=== PATIENT | male | born 1985 | race Caucasian/White ===

== ENCOUNTER 2020-03-18 09:35 | Inpatient (IN) | payer MEDICARE, OTHER ==
[~2020-03-18] VITALS: Ht 182.9 cm; Wt 73.0 kg
[2020-03-18] MEDS ORDERED: SODIUM CHLORIDE 0.9% 500ML 500 ML IV ONE (09:45)
[2020-03-18] MEDS ORDERED: MEROPENEM 500MG 500 MG in SODIUM CHLORIDE 0.9% 50ML 50 ML IV ONE (09:45)
--- OUTSIDE RECORDS SUMMARY | 2020-03-18 10:06 | XMS REPORT | Clinical Summary ---
Author Author [facility] ict Organization [facility] ict Address Unknown Phone Unavailable Care Team Providers Care Accounts Payable Analyst Name Role Phone PCP Unavailable Allergies Comments Active Allergy Reactions Severity Noted Date Latex Rash High 08/25/2016 Naproxen Hives High 08/25/2016 Tramadol Hives High 08/25/2016 Medications End Date Status Medication Sig Dispensed Refills Start Date Active acetaminophen-codeine Take 1 tablet 30 tablet 1 (TYLENOL/CODEINE #3) by mouth 7 300-30 mg per every 6 hours tabletIndications: as needed for Chronic midline low back Pain. pain, with sciatica presence unspecified Active Problems Problem Noted Date Chronic back pain 08/28/2016 Left flank pain 08/25/2016 Acute renal failure 08/25/2016 Hyperkalemia 08/25/2016 Chronic indwelling [place] catheter 08/25/2016 Paraplegia, complete 08/25/2016 Decubitus ulcer of buttock, stage 4 08/25/2016 Left upper quadrant pain Nausea and vomiting Renal failure (ARF), acute on chronic Urinary tract infection associated with indwelling urethral catheter Metabolic acidosis Family History Medical History Relation Name Comments Alcohol/Drug Father Heart attack Father Cancer Mother possible breast, sh e when pt was 5yr old Relation Name Status Comments Father Mother Social History Date Tobacco Use Types Packs/Day Years Used Former Smoker Drinks/Week oz/Week Comments Alcohol Use 0 Standard drinks or equivalent 0.0 quit No Sex Assigned at Date Recorded Not on file Industry Job Start Date Occupation Not on file Not on file Not on file Travel End Travel History Travel Start No recent travel history available. Last Filed Vital Signs Not on file Plan of Treatment Health Maintenance Due Date Last Done Comments IMM Influenza Seasonal 05/04/2020 Oct to October (>/= 19 yrs) Results Not on fileafter 03/18/2019 Insurance Type Payer Benefit Subscriber ID Effective Phone Address Plan / Dates Group MEDICARE MEDICARE xxxxxxxxxx 2008-P [phone] [id number] [place] [address] [place] [id number] xxxxxxxxx 2016- [phone] Present 2004 MEDICARE [place], [place] BENEF[place]IAR [id number] Y Advance Directives Patient [place] Operator Explanation Type Date Recorded MEDICAL POWER OF MOTION PICTURE DIRECTOR Power of Dye Reel Operator 09/01/2016 1:13 AM Date Inactivated Comments Code Status Date Activated 08/28/2016 6:03 PM Full Code 08/25/2016 11:08 AM
--- OUTSIDE RECORDS SUMMARY | 2020-03-18 10:08 | XMS REPORT | Clinical Summary ---
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 ACID LEVEL, SEPSIS Timed 12/21/2019 - NOW AND REPEAT 2X EVERY 2:11 AM CDT 3 HOURS POC GLUCOSE Routine 12/20/2019 10:22 PM CDT ESTIMATED GFR STAT 12/20/2019 10:20 PM CDT BASIC METABOLIC PANEL STAT 12/20/2019 10:20 PM CDT LACTIC ACID LEVEL, SEPSIS Timed 12/20/2019 - NOW AND REPEAT 2X EVERY 9:37 PM CDT 3 HOURS URINE CULTURE Routine 12/20/2019 8:36 PM CDT URINALYSIS SCREEN AND Routine 12/20/2019 MICROSCOPY, WITH REFLEX 8:17 PM CDT TO CULTURE ECG 12-LEAD STAT 12/20/2019 8:07 PM CDT POC GLUCOSE Routine 12/20/2019 8:02 PM CDT PREPARE RBC STAT 12/20/2019 7:48 PM CDT PREPARE RBC STAT 12/20/2019 7:48 PM CDT TYPE AND SCREEN Routine 12/20/2019 7:48 PM CDT PARTIAL THROMBOPLASTIN STAT 12/20/2019 TIME (PTT) 7:48 PM CDT PROTHROMBIN TIME WITH INR STAT 12/20/2019 7:48 PM CDT SMEAR REVIEW STAT 12/20/2019 6:54 PM CDT ESTIMATED GFR STAT 12/20/2019 6:54 PM CDT LACTIC ACID LEVEL, SEPSIS STAT 12/20/2019 - NOW AND REPEAT 2X EVERY 6:54 PM CDT 3 HOURS LIPASE LEVEL STAT 12/20/2019 6:54 PM CDT HEPATIC FUNCTION PANEL STAT 12/20/2019 6:54 PM CDT BASIC METABOLIC PANEL STAT 12/20/2019 6:54 PM CDT HC COMPLETE BLD COUNT STAT 12/20/2019 W/AUTO DIFF 6:54 PM CDT BLOOD CULTURE, AEROBIC & Routine 12/20/2019 ANAEROBIC 6:54 PM CDT MD CRITICAL CARE, ADDL 30 Routine 12/20/2019 MIN 6:43 PM CDT MD CRITICAL CARE, E/M Routine 12/20/2019 30-74 MINUTES 6:43 PM CDT BLOOD CULTURE, AEROBIC & Routine 12/20/2019 ANAEROBIC 6:30 PM CDT ESTIMATED GFR Routine 10/19/2019 5:19 AM CDT HC COMPLETE BLD COUNT Routine 10/19/2019 W/AUTO DIFF 5:19 AM CDT BASIC METABOLIC PANEL Routine 10/19/2019 5:19 AM CDT ESTIMATED GFR Routine 10/17/2019 5:35 AM CDT COMPREHENSIVE METABOLIC Routine 10/17/2019 PANEL 5:35 AM CDT HC COMPLETE BLD COUNT Routine 10/17/2019 W/AUTO DIFF 5:35 AM CDT URINE CULTURE STAT 10/17/2019 2:46 AM CDT URINE DRUGS OF ABUSE Routine 10/17/2019 SCREEN 2:03 AM CDT URINALYSIS SCREEN AND STAT 10/17/2019 MICROSCOPY, WITH REFLEX 2:03 AM CDT TO CULTURE RESPIRATORY PATHOGEN Routine 10/17/2019 PANEL 2:03 AM CDT TROPONIN Timed 10/16/2019 6:10 PM CDT XR CHEST 1 VW PORTABLE Routine 10/16/2019 4:55 PM CDT TROPONIN Timed 10/16/2019 4:30 PM CDT ECG 12-LEAD Routine 10/16/2019 3:51 PM CDT ESTIMATED GFR Routine 10/16/2019 6:44 AM CDT BASIC METABOLIC PANEL Routine 10/16/2019 6:[address] ABDOMEN PELVIS W STAT 10/16/2019 CONTRAST 12:28 AM CDT ESTIMATED GFR STAT 10/15/2019 10:04 PM CDT COMPREHENSIVE METABOLIC STAT 10/15/2019 PANEL 10:04 PM CDT HC COMPLETE BLD COUNT STAT 10/15/2019 W/AUTO DIFF 10:04 PM CDT SMEAR REVIEW Routine 09/12/2019 5:03 AM [employer] TRA[employer]IVER ESTIMATED GFR Routine 09/12/2019 5:03 AM [employer] TRA[employer]IVER BASIC METABOLIC PANEL Routine 09/12/2019 5:03 AM TRA[employer] TRA[employer]IVER HC COMPLETE BLD COUNT Routine 09/12/2019 W/AUTO DIFF 5:03 AM TRACTOR TRA[employer] DRIVER ESTIMATED GFR Routine 08/25/2019 5:57 AM TRACTOR TRA[employer] DRIVER BASIC METABOLIC PANEL Routine 08/25/2019 5:57 AM TRACTOR TRA[employer] DRIVER HC COMPLETE BLD COUNT Routine 08/25/2019 W/AUTO DIFF 5:57 AM TRACTOR TRA[employer] DRIVER URINE DRUGS OF ABUSE Routine 08/19/2019 SCREEN 1:10 PM TRACTOR TRA[employer]IVER ESTIMATED GFR Routine 08/19/2019 4:00 AM [employer] TRA[employer]IVER THYROID STIMULATING Routine 08/19/2019 HORMONE 4:00 AM TRACTOR TRA[employer]IVER COMPREHENSIVE METABOLIC Routine 08/19/2019 PANEL 4:00 AM TRA[employer] TRA[employer] DRIVER HC COMPLETE BLD COUNT Routine 08/19/2019 W/AUTO DIFF 4:00 AM TRACTOR TRA[employer] DRIVER ESTIMATED GFR Routine 08/16/2019 6:42 AM TRACTOR TRA[employer]IVER BASIC METABOLIC PANEL Routine 08/16/2019 6:42 AM TRACTOR TRA[employer] DRIVER MD AN ELECTIVE Routine 08/14/2019 ENDOTRACHEAL AIRWAY 10:42 AM TRACTOR TRA[employer] DRIVER SURGICAL PATHOLOGY Routine 08/14/2019 REQUEST 9:49 AM TRA[employer] TRA[employer] DRIVER ESTIMATED GFR Routine 08/14/2019 5:37 AM TRACTOR TRA[employer] DRIVER BASIC METABOLIC PANEL Routine 08/14/2019 5:37 AM TRACTOR TRAILER M[employer]ING VAN DRIVER ESTIMATED GFR Routine 08/12/2019 6:32 AM TRACTOR TRA[employer]ER [employer] DRIVER HC COMPLETE BLD COUNT Routine 08/12/2019 W/AUTO DIFF 6:32 AM TRACTOR TRAILER [employer]AN DRIVER BASIC METABOLIC PANEL Routine 08/12/2019 6:32 AM TRACTOR TRAILER M[employer]ING [employer]AN DRIVER ESTIMATED GFR Routine 08/11/2019 6:32 AM TRACTOR TRAILER M[employer]ING [employer]AN DRIVER HC COMPLETE BLD COUNT Routine 08/11/2019 W/AUTO DIFF 6:32 AM TRACTOR TRAILER M[employer]ING [employer]AN DRIVER BASIC METABOLIC PANEL Routine 08/11/2019 6:32 AM TRACTOR TRAILER M[employer]AN DRIVER ESTIMATED GFR Routine 08/10/2019 4:33 AM TRACTOR TRAILER M[employer]ING [employer]AN DRIVER HC COMPLETE BLD COUNT Routine 08/10/2019 W/AUTO DIFF 4:33 AM TRACTOR TRAILER [employer]AN DRIVER BASIC METABOLIC PANEL Routine 08/10/2019 4:33 AM TRACTOR TRAILER [employer]AN DRIVER BLOOD CULTURE, AEROBIC & Routine 08/10/2019 ANAEROBIC 4:33 AM TRACTOR TRAIL[employer]ING [employer]AN DRIVER BLOOD CULTURE, AEROBIC & Routine 08/10/2019 ANAEROBIC 4:29 AM TRACTOR TRA[employer] DRIVER ESTIMATED GFR Routine 08/09/2019 4:36 AM TRACTOR TRAILER M[employer]AN DRIVER BASIC METABOLIC PANEL Routine 08/09/2019 4:36 AM TRACTOR TRAILER M[employer]ING [employer]AN DRIVER HC COMPLETE BLD COUNT Routine 08/09/2019 W/AUTO DIFF 4:36 AM TRACTOR TRAILER [employer]AN DRIVER ESTIMATED GFR Routine 08/08/2019 5:00 AM TRACTOR TRA[employer]IVER BASIC METABOLIC PANEL Routine 08/08/2019 5:00 AM TRA[employer] TRA[employer]AN DRIVER CBC WITH PLATELET AND Routine 08/08/2019 DIFFERENTIAL 5:00 AM [employer] TRA[employer]IVER XR CHEST 1 VW PORTABLE Routine 08/07/2019 11:45 AM TRACTOR TRA[employer]AN DRIVER ESTIMATED GFR Routine 08/07/2019 6:56 AM TRACTOR TRA[employer]IVER BASIC METABOLIC PANEL Routine 08/07/2019 6:56 AM TRACTOR TRAILER M[employer]AN DRIVER PROTHROMBIN TIME WITH INR Routine 08/07/2019 6:56 AM TRACTOR TRA[employer] M[employer]AN DRIVER HC COMPLETE BLD COUNT Routine 08/07/2019 W/AUTO DIFF 6:56 AM TRACTOR TRAILER M[employer]ING VAN DRIVER CT ABDOMEN PELVIS WO STAT 08/06/2019 CONTRAST 5:38 PM TRACTOR TRA[employer]AN DRIVER GRAM STAIN STAT 08/06/2019 5:07 PM TRACTOR TRA[employer]AN DRIVER URINE CULTURE STAT 08/06/2019 5:07 PM TRACTOR TRA[employer]ER M[employer]AN DRIVER ESTIMATED GFR STAT 08/06/2019 4:30 PM TRACTOR TRA[employer]AN DRIVER LIPASE LEVEL STAT 08/06/2019 4:30 PM TRACTOR TRA[employer]ER [employer]AN DRIVER COMPREHENSIVE METABOLIC STAT 08/06/2019 PANEL 4:30 PM TRACTOR TRAILER M[employer]ING [employer]AN DRIVER HC COMPLETE BLD COUNT STAT 08/06/2019 W/AUTO DIFF 4:30 PM TRACTOR TRAIL[employer] DRIVER URINALYSIS SCREEN AND STAT 08/06/2019 MICROSCOPY, WITH REFLEX 4:14 PM TRACTOR TRAIL[employer] M[employer]ING [employer]AN DRIVER TO CULTURE ESTIMATED GFR Routine 04/10/2019 5:36 AM CDT BASIC METABOLIC PANEL Routine 04/10/2019 5:36 AM CDT ESTIMATED GFR Routine 04/09/2019 5:20 AM CDT BASIC METABOLIC PANEL Routine 04/09/2019 5:20 AM CDT ESTIMATED GFR Routine 04/08/2019 6:20 AM CDT BASIC METABOLIC PANEL Routine 04/08/2019 6:20 AM CDT US GUIDED VASCULAR ACCESS Routine 04/07/2019 9:33 AM CDT IR NON-TUNNELED CENTRAL Routine 04/07/2019 LINE PLACEMENT 9:33 AM CDT ESTIMATED GFR Routine 04/07/2019 8:25 AM CDT BASIC METABOLIC PANEL Routine 04/07/2019 8:25 AM CDT PHOSPHORUS LEVEL Routine 04/07/2019 8:25 AM CDT MAGNESIUM LEVEL Routine 04/07/2019 8:25 AM CDT XR CHEST 1 VW PORTABLE Routine 04/06/2019 7:58 AM CDT ESTIMATED GFR Routine 04/06/2019 5:36 AM CDT B NATRIURETIC PEPTIDE Routine 04/06/2019 5:36 AM CDT BASIC METABOLIC PANEL Routine 04/06/2019 5:36 AM CDT PHOSPHORUS LEVEL Routine 04/06/2019 5:36 AM CDT MAGNESIUM LEVEL Routine 04/06/2019 5:36 AM CDT CBC HEMOGRAM Routine 04/06/2019 5:36 AM CDT POTASSIUM LEVEL STAT 04/05/2019 3:40 PM CDT ESTIMATED GFR Routine 04/05/2019 5:50 AM CDT BASIC METABOLIC PANEL Routine 04/05/2019 5:50 AM CDT PHOSPHORUS LEVEL Routine 04/05/2019 5:50 AM CDT MAGNESIUM LEVEL Routine 04/05/2019 5:50 AM CDT VANCOMYCIN LEVEL, RANDOM Routine 04/05/2019 5:50 AM CDT CBC HEMOGRAM Routine 04/05/2019 5:50 AM CDT VANCOMYCIN LEVEL, TROUGH Timed 04/04/2019 10:00 AM CDT GRAM STAIN Routine 04/04/2019 5:50 AM CDT URINE CULTURE Routine 04/04/2019 5:50 AM CDT POC GLUCOSE Routine 04/04/2019 5:14 AM CDT URINALYSIS SCREEN AND Routine 04/04/2019 MICROSCOPY, WITH REFLEX 4:28 AM CDT TO CULTURE B NATRIURETIC PEPTIDE Routine 04/04/2019 3:41 AM CDT MAGNESIUM LEVEL Routine 04/04/2019 3:41 AM CDT PHOSPHORUS LEVEL Routine 04/04/2019 3:41 AM CDT ESTIMATED GFR Routine 04/04/2019 3:41 AM CDT BASIC METABOLIC PANEL Routine 04/04/2019 3:41 AM CDT CBC HEMOGRAM Routine 04/04/2019 3:[address] ANGIOGRAM PE CHEST STAT 04/03/2019 6:39 AM CDT XR CHEST 1 VW PORTABLE Routine 04/03/2019 6:36 AM CDT ARTERIAL BLOOD GAS Timed 04/03/2019 4:20 AM CDT SMEAR REVIEW Timed 04/03/2019 4:15 AM CDT PARTIAL THROMBOPLASTIN Timed 04/03/2019 TIME (PTT) 4:15 AM CDT ESTIMATED GFR Timed 04/03/2019 4:15 AM CDT B NATRIURETIC PEPTIDE Timed 04/03/2019 4:15 AM CDT PHOSPHORUS LEVEL Timed 04/03/2019 4:15 AM CDT MAGNESIUM LEVEL Timed 04/03/2019 4:15 AM CDT HC COMPLETE BLD COUNT Timed 04/03/2019 W/AUTO DIFF 4:15 AM CDT BASIC METABOLIC PANEL Timed 04/03/2019 4:15 AM CDT TROPONIN, I-STAT Timed 04/03/2019 1:28 AM CDT US DUPLEX VENOUS LOWER STAT 04/03/2019 EXTREMITY BILATERAL 12:09 AM CDT CBC HEMOGRAM STAT 04/02/2019 8:54 PM CDT ANTI XA, UNFRACTIONATED STAT 04/02/2019 8:54 PM CDT US RENAL Routine 04/02/2019 8:50 PM CDT ARTERIAL BLOOD GAS STAT 04/02/2019 8:45 PM CDT TROPONIN Timed 04/02/2019 7:48 PM CDT PROTHROMBIN TIME WITH INR STAT 04/02/2019 3:15 PM CDT PARTIAL THROMBOPLASTIN STAT 04/02/2019 TIME (PTT) 3:15 PM CDT ARTERIAL BLOOD GAS STAT 04/02/2019 3:09 PM CDT HC CATH DUAL LUMEN PICC # Routine 04/02/2019 [id number] 2:26 PM CDT HC US GUIDED VASCULAR Routine 04/02/2019 ACCESS 2:26 PM CDT CONSULT TO SEPSIS Routine 04/02/2019 Sepsis, due to RESPONSE TEAM 9:47 AM CDT unspecified organis m (HCC) ECG 12-LEAD STAT 04/02/2019 7:58 AM CDT MANUAL DIFFERENTIAL Routine 04/02/2019 7:04 AM CDT LACTIC ACID LEVEL Routine 04/02/2019 7:04 AM CDT TROPONIN STAT 04/02/2019 7:04 AM CDT ESTIMATED GFR Routine 04/02/2019 7:04 AM CDT BASIC METABOLIC PANEL Routine 04/02/2019 7:04 AM CDT CBC HEMOGRAM Routine 04/02/2019 7:04 AM CDT XR CHEST 1 VW PORTABLE STAT 04/02/2019 6:36 AM CDT POC GLUCOSE Routine 04/02/2019 5:23 AM CDT ESTIMATED GFR Routine 04/01/2019 5:36 AM CDT BASIC METABOLIC PANEL Routine 04/01/2019 5:36 AM CDT CBC HEMOGRAM Routine 04/01/2019 5:36 AM CDT US CAROTID DUPLEX Routine 03/31/2019 BILATERAL 8:01 PM CDT MRI BRAIN WO CONTRAST Routine 03/31/2019 4:24 PM CDT EEG AWAKE/ASLEEP LESS Routine 03/31/2019 THAN 41 MIN 1:32 PM CDT XR ABDOMEN 1 VW PORTABLE Routine 03/30/2019 7:04 PM CDT TTE COMPLETE, WO Routine 03/30/2019 CONTRAST, W DOPPLER 4:32 PM CDT (01262) TROPONIN Timed 03/30/2019 5:58 AM CDT ECG 12-LEAD STAT 03/30/2019 4:29 AM CDT TROPONIN Timed 03/30/2019 3:35 AM CDT ESTIMATED GFR Routine 03/30/2019 3:35 AM CDT BASIC METABOLIC PANEL Routine 03/30/2019 3:35 AM CDT HC COMPLETE BLD COUNT Routine 03/30/2019 W/AUTO DIFF 3:35 AM CDT TROPONIN, I-STAT Timed 03/30/2019 12:39 AM CDT LACTIC ACID LEVEL, SEPSIS Timed 03/29/2019 - NOW AND REPEAT 2X EVERY 9:25 PM CDT 3 HOURS TROPONIN Timed 03/29/2019 9:25 PM CDT TTE COMPLETE, WO Routine 03/29/2019 CONTRAST, W DOPPLER 5:12 PM CDT (52965) LACTIC ACID LEVEL, SEPSIS Timed 03/29/2019 - NOW AND REPEAT 2X EVERY 4:54 PM CDT 3 HOURS TROPONIN Timed 03/29/2019 4:54 PM CDT GRAM STAIN Routine 03/29/2019 2:50 PM CDT URINE CULTURE Routine 03/29/2019 2:50 PM CDT XR CHEST 1 VW PORTABLE STAT 03/29/2019 2:47 PM CDT URINE DRUGS OF ABUSE Routine 03/29/2019 SCREEN 2:30 PM CDT URINALYSIS SCREEN AND Routine 03/29/2019 MICROSCOPY, WITH REFLEX 2:30 PM [address]T TO CULTURE CT HEAD WO CONTRAST STAT 03/29/2019 2:11 PM CDT ECG ED PRELIMINARY Routine 03/29/2019 INTERPRETATION 1:47 PM CDT SMEAR REVIEW STAT 03/29/2019 1:12 PM CDT ACETAMINOPHEN LEVEL STAT 03/29/2019 1:12 PM CDT SALICYLATE LEVEL STAT 03/29/2019 1:12 PM CDT AMMONIA LEVEL STAT 03/29/2019 1:12 PM CDT HEPATIC FUNCTION PANEL STAT 03/29/2019 1:12 PM CDT LACTIC ACID LEVEL, SEPSIS STAT 03/29/2019 - NOW AND REPEAT 2X EVERY 1:12 PM CDT 3 HOURS ESTIMATED GFR STAT 03/29/2019 1:12 PM CDT B NATRIURETIC PEPTIDE STAT 03/29/2019 1:12 PM CDT TROPONIN STAT 03/29/2019 1:12 PM CDT CREATINE KINASE, TOTAL STAT 03/29/2019 (CPK) 1:12 PM CDT BASIC METABOLIC PANEL STAT 03/29/2019 1:12 PM CDT HC COMPLETE BLD COUNT STAT 03/29/2019 W/AUTO DIFF 1:12 PM CDT BLOOD CULTURE, AEROBIC & Routine 03/29/2019 ANAEROBIC 1:12 PM CDT BLOOD CULTURE, AEROBIC & Routine 03/29/2019 ANAEROBIC 1:05 PM CDT ECG 12-LEAD STAT 03/29/2019 12:18 PM CDT after 03/18/2019 Results * Estimated GFR (01/13/2020 6:13 AM CDT) Only the most recent of 46 results within the time period is included. Estimated GFR 51 (A) mL/min/1.73 m2 [place] Comment: ORIENTAL ORTHODOX Catergory Units [facility] G1 >=90 Normal or high G2 60-89 Mildly decreased G3a 45-59 Mildly to moderately decreased G3b 30-44 Moderately to severely decreased G4 15-29 Severely decreased G5 <15 Kidney failure The eGFR was calculated using the Chronic Kidney Disease Epidemiology Collaboration (CKD-EPI) equation. Interpretation is based on recommendations of the National Kidney Foundation-Kidney Disease Outcomes Quality Initiative (NKF-KDOQI) published in 2014. Specimen Performing Organization Address City/State/Zipcode Ph one Number [facility] DEPARTMENT OF [address] [place] [address] PATHOLOGY AND GENOMIC MEDICINE [facility] [address] [place] [address] HOSPITAL * CBC with platelet and differential (01/13/2020 6:13 AM CDT) Only the most recent of 29 results within the time period is included. WBC 5.8 4.2 - 11.0 k/uL [facility] RBC 3.66 (L) 4.04 - 5.86 m/uL [facility] HGB 9.7 (L) 13.0 - 17.3 g/dL [facility] HCT 32.2 (L) 34.0 - 45.0 % [facility] MCV 88.0 80.0 - 98.0 fL [facility] MCH 26.5 (L) 27.0 - 34.0 pg [facility] MCHC 30.1 (L) 31.5 - 36.5 g/dL [facility] RDW - SD 60.1 (H) 37.0 - 51.0 fL [facility] MPV 10.1 7.4 - 10.4 fL [facility] Platelet count 384 150 - 400 k/uL [facility] Nucleated RBC 0.00 /100 WBC [facility] Neutrophils 50.8 36.0 - 66.0 % [facility] Lymphocytes 33.9 24.0 - 44.0 % [facility] Monocytes 9.3 (H) 0.0 - 6.0 % [facility] Eosinophils 4.7 0.0 - 6.0 % [facility] Basophils 1.0 0.0 - 1.2 % [facility] Immature 0.3 0.0 - 1.0 % [place] granulocytes [facility] Specimen Blood Performing Organization Address City/State/[facility] Ph one Number [facility] DEPARTMENT OF [address] [place] [address] PATHOLOGY AND GENOMIC MEDICINE [facility] [address] [place] [address] HOSPITAL * Basic metabolic panel (01/13/2020 6:13 AM CDT) Only the most recent of 41 results within the time period is included. Sodium 137 135 - 150 mEq/L [facility] Potassium 4.7 3.5 - 5.0 mEq/L [facility] Chloride 107 98 - 112 mEq/L [facility] CO2 19 (L) 24 - 31 mmol/L [facility] Anion gap 11@ANIO 7 - 15 mEq/L [facility] BUN 22 (H) 7 - 18 mg/dL [facility] Creatinine 1.70 (H) 0.70 - 1.20 mg/dL [facility] Glucose 89 65 - 100 mg/dL [facility] Calcium 8.8 8.3 - 10.2 mg/dL [facility] Specimen Blood Performing Organization Address City/[facility] Ph one Number [facility] DEPARTMENT OF [address] [place] [address] PATHOLOGY AND GENOMIC MEDICINE [facility] [address] * Lactic acid level, SEPSIS - Now and repeat 2x every 3 hours (01/11/2020 4:41 AM CDT) Only the most recent of 9 results within the time period is included. Lactic acid 1.3 0.5 - 2.2 mmol/L [facility] Specimen Blood Performing Organization Address City/State/Zipcode Ph one Number [facility] DEPARTMENT OF [address] [place] [address] PATHOLOGY AND GENOMIC MEDICINE [facility] [address] [facility] [place] [address] H[facility]PITAL * Troponin (01/11/2020 4:41 AM CDT) Only the most recent of 12 results within the time period is included. Troponin <0.006 0.000 - 0.040 ng/mL [place] Comment: ORIENTAL ORTHODOX In patients suspected of [facility] having a myocardial HOSPITAL infarction, along with all other appropriate clinical measures and actions including ECG and other diagnostics as appropriate, measure Ultra TnI at 0 hrs and at 3 hrs. Myocardial infarction VERY LIKELY The 0 hr TnI level is > 0.10 ng/mL Myocardial infarction LIKELY The 0 hr TnI level is > 0.04 ng/mL and 3 hr level is increased or decreased by at least 0.020 ng/mL Myocardial infarction VERY UNLIKELY Both the 0 hr and 3 hr TnI levels <= 0.04 ng/mL(within normal limits) OR 0 hr is > 0.04 ng/mL and 3 hr is increased OR decreased by less than 0.020 ng/mL Specimen Blood Performing Organization Address City/State/[facility] Ph one Number [facility] DEPARTMENT OF [address] [place] [address] PATHOLOGY AND GENOMIC MEDICINE [place] ORIENTAL ORTHODOX [facility] [address] [place] [id number] HOSPITAL * MRI Foot Wo Contrast Right (01/11/2020 1:16 AM CDT) Only the most recent of 2 results within the time period is included. Specimen Narrative Performed At [facility] Examination: MRI FOOT WO CONTRAST RIG HT Clinical History: hx of osteo worseni ng heel sore Comparison: 12/22/2019 Findings: MRI of the right forefoot was performed without gadolinium contrast. Intramedullary ronen fixation through the distal tibia is noted. There is mild subcutaneous defect noted at the posterior heel of the foot probably representing a small subcutane ous ulcer. There is some mild high T2 and vague low T1 signal noted at the adjace nt posterior calcaneus. The appearance is similar to that of the prior study but slightly worse. No discrete fluid collection is seen. Some patchy abnormal marrow signal is n oted in the talus but is improved compared to the prior study. There is s ome nonspecific fluid around the talus similar to that of the prior study. No definite fracture line is seen. Visualized ligamentous and muscular str uctures are within normal limits. IMPRESSION: 1. There is a subcutaneous small defect with some abnormal T2 signal at the posterior heel of the foot probably rep resenting a subcutaneous ulcer. Clinical correlation is recommended. 2. There is some abnormal marrow signal or marrow edema noted at the posterior calcaneus adjacent to the subcutaneous ulcer. This may represent early osteomyelitis. 3. Some improvement in the patchy abnor mal marrow signal in the talus compared to the prior study. FRANCISCO LIMA was informed of thes e findings on 01/11/2020 1:53 AM and acknowledged understanding of the find ngs. [facility]-[id number] Procedure Note Hm Interface, Radiology Results Incoming - 01/11/2020 1:56 AM CDT Examination: MRI FOOT WO CONTRAST RIGHT Clinical History: hx of osteo worsening heel sore Comparison: 12/22/2019 Findings: MRI of the right forefoot was performed without gadolinium contrast. Intramedullary ronen fixation through the distal tibia is noted. There is mild subcutaneous defect noted at the posterior heel of the foot probably representing a small subcutaneous ulcer. There is some mild high T2 and vague low T1 signal noted at the adjacent posterior calcaneus. The appearance is similar to that of the prior study but slightly worse. No discrete fluid collection is seen. Some patchy abnormal marrow signal is noted in the talus but is improved compared to the prior study. There is some nonspecific fluid around the talus similar to that of the prior study. No definite fracture line is seen. Visualized ligamentous and muscular structures are within normal limits. IMPRESSION: 1. There is a subcutaneous small defect with some abnormal T2 signal at the posterior heel of the foot probably representing a subcutaneous ulcer. Clinical correlation is recommended. 2. There is some abnormal marrow signal or marrow edema noted at the posterior calcaneus adjacent to the subcutaneous ulcer. This may represent early osteomyelitis. 3. Some improvement in the patchy abnorm al marrow signal in the talus compared to the prior study. FRANCISCO LIMA was informed of these findings on 01/11/2020 1:53 AM and acknowledged understanding of the findings. [facility]-[id number] Performing Organization Address City/State/Zipcode Ph one Number [facility] [address] [place] [address] * CT Abdomen Pelvis Wo Contrast (01/11/2020 12:20 AM CDT) Only the most recent of 2 results within the time period is included. Specimen Addenda Addendum by Brandon Bhatt MD on 01/11/2020 1:55 AM ADDENDUM #1 Addendum: Bilateral large sacral decubitus ulcers are noted extending to the bilateral ischial tuberosities. There is no definite cortical bone destruction of the ischial tuberosities to suggest osteomyelitis. No definite fluid collection is seen. FRANCISCO LIMA was informed of these findings on 01/11/2020 1:55 AM and acknowledged understanding of the findings. Narrative Performed At Examination: CT ABDOMEN PELVIS WO CONTRAST [facility] ANT Clinical History: multiple abscess glut Comparison: None. Findings: CT scans are performed using radiation dose reduction techniques. Technical factors are evaluated and adjusted to e nsure appropriate moderation of exposure. Automated dose management technology is applied to adjust radiation exposure while achieving a diagnostic quality image. CT imaging wa s performed with iterative reconstruction techniques and/or automated exposure co ntrol to reduce radiation dose. CT scan of the abdomen and pelvis was p erformed without intravenous contrast. Capsular retraction and peripheral calc ification in the right lobe of the liver is stable. The spleen, pancreas, and ad renal glands are unremarkable. The right kidney is not visualized. Lef t internal ureteral stent is noted with mild to moderate hydronephrosis and hyd roureter. No ureteral calculus is seen. Lower pole 2 mm calculus is seen. Small amount of air is seen in the upper pole calyces. Left lower quadrant ostomy is noted. No nspecific but nondilated fluid-filled loops of small bowel are noted but not grossly distended. No bowel thickening or fat stranding is seen. The appendix is not visualized. No bowel dilatation is seen. Suprapubic bladder catheter is noted wi th a decompressed bladder. No free air or fluid is seen. Mild bilateral gluteal subcutaneous fat stranding and skin thickening is seen. No discrete fluid collection is seen. Hyperkyphosis is of the thoracolumbar s pine is noted at the thoracolumbar junction. This is unchanged. The visualized lung bases show minimal right base subsegmental atelectasis. IMPRESSION: 1. Left internal ureteral stent with mi ld to moderate hydronephrosis and hydroureter. Small amount of air is not ed in the upper pole calyces. 2. Left nonobstructing intrarenal calcu lina. 3. Nonspecific but nondilated fluid-irene led loops of small bowel may be related to mild ileus. 4. Bilateral gluteal subcutaneous fat s tranding and skin thickening may be related to cellulitis but no discrete f luid collection is seen to suggest abscess at this time. [facility]-[id number] Procedure Note Interface, Radiology Results Incoming - 01/11/2020 12:39 AM CDT Examination: CT ABDOMEN PELVIS WO CONTRAST Clinical History: multiple abscess glut Comparison: None. Findings: CT scans are performed using radiation dose reduction techniques. Technical factors are evaluated and adjusted to ensure appropriate moderation of exposure. Automated dose management technology is applied to adjust radiation exposure while achieving a diagnostic quality image. CT imaging was performed with iterative reconstruction techniques and/or automated exposure control to reduce radiation dose. CT scan of the abdomen and pelvis was performed without intravenous contrast. Capsular retraction and peripheral calcification in the right lobe of the liver is stable. The spleen, pancreas, and adrenal glands are unremarkable. The right kidney is not visualized. Left internal ureteral stent is noted with mild to moderate hydronephrosis and hydroureter. No ureteral calculus is seen. Lower pole 2 mm calculus is seen. Small amount of air is seen in the upper pole calyces. Left lower quadrant ostomy is noted. Nonspecific but nondilated fluid-filled loops of small bowel are noted but not grossly distended. No bowel thickening or fat stranding is seen. The appendix is not visualized. No bowel dilatation is seen. Suprapubic bladder catheter is noted with a decompressed bladder. No free air or fluid is seen. Mild bilateral gluteal subcutaneous fat stranding and skin thickening is seen. No discrete fluid collection is seen. Hyperkyphosis is of the thoracolumbar spine is noted at the thoracolumbar junction. This is unchanged. The visualized lung bases show minimal right base subsegmental atelectasis. IMPRESSION: 1. Left internal ureteral stent with mil d to moderate hydronephrosis and hydroureter. Small amount of air is noted in the upper pole calyces. 2. Left nonobstructing intrarenal calcul us. 3. Nonspecific but nondilated fluid-fill ed loops of small bowel may be related to mild ileus. 4. Bilateral gluteal subcutaneous fat st randing and skin thickening may be related to cellulitis but no discrete fluid collection is seen to suggest abscess at this time. [facility]-[id number] Performing Organization Address City/State/Zipcode Ph one Number [facility] [address] [place] [address] * CRITICAL CARE (01/10/2020 11:02 PM CDT) Narrative Performed At Francisco Lima MD 01/11/2020 8:23 PM Critical Care Performed by: Francisco Lima MD Authorized by: Francisco Lima MD Critical care provider statement: Critical care time (minutes): 48 Critical care time was exclusive of: Separately billable procedures and treating other patients Critical care was necessary to treat or prevent imminent or life-threatening deterioration of the f ollowing conditions: Sepsis (sirs with multiple sources) Critical care was time spent personal ly by me on the following activities: Discussions with primary provider, evaluation of patient's response to treatment, examination of p atient, obtaining history from patient or surrogate, re-evaluation of patient's condition, pulse oximetry, ordering and review of radiog raphic studies, ordering and review of laboratory studies, ordering and per forming treatments and interventions, discussions with consult ants, blood draw for specimens, development of treatment plan with berenice ent or surrogate and review of old charts Lawrence 'yes' if you are taking over cri tical care for this patient from another provider.: no * Urine culture (01/10/2020 11:01 PM CDT) Only the most recent of 6 results within the time period is included. Urine culture Escherichia coli EB isolate >10-5 cfu/ml ORIENTAL ORTHODOX [facility] HOSPITAL characteristics of this assay on this isolate were validated by the Microbiology Laboratory at [facility]. This source has not been approved by the U.S. Food and Drug Administration. The results are not intended to be used as the sole means for clinical diagnosis or patient management. The Microbiology Laboratory is authorized under the clinical Laboratory Improvement Amendments of 1988 (CLIA-88) to perform high complexity testing. This isolate is a egg producer of ESBL (extended spectrum beta lactamase). This organism may be clinically resistant to penicillins, cephalosporins or aztreonam despite apparent in vitro susceptibility to some of these agents. This is a carbapenemase producing organism. It is resistant to Imipenem, Meropenem and Ertapenem. This organism is multi-drug resistant. (A) Comment: Specimen Information Specimen Source: Urine Specimen Site: Clean catch Urine culture Providencia stkellyrtii [place] isolate >10-5 cfu/ml ORIENTAL ORTHODOX The performance HOSPITAL characteristics of this assay on this isolate were validated by the Microbiology Laboratory at [facility]. This source has not been approved by the U.S. Food and Drug Administration. The results are not intended to be used as the sole means for clinical diagnosis or patient management. The Microbiology Laboratory is authorized under the clinical Laboratory Improvement Amendments of 1988 (CLIA-88) to perform high complexity testing. (A) Specimen Urine Antibiotic Method Susceptibility Organism Ampicillin NHUNG >16 mcg/mL: Resistant Escherichia coli Amoxicillin/Clavulanate NHUNG >16/8 mcg/mL: Resistant Escherichia coli Amikacin NHUNG <=4 mcg/mL: Susceptible Escherichia coli Aztreonam NHUNG >16 mcg/mL: Resistant Escherichia coli Ceftazidime NHUNG 4 mcg/mL: Resistant Escherichia coli Ciprofloxacin NHUNG >2 mcg/mL: Resistant Escherichia coli Ceftriaxone NHUNG >32 mcg/mL: Resistant Escherichia coli Cefuroxime Sodium NHUNG >16 mcg/mL: Resistant Escherichia coli Cefazolin NHUNG >32 mcg/mL: Resistant Escherichia coli Cefepime NHUNG 8 mcg/mL: Resistant Escherichia coli Nitrofurantoin NHUNG <=16 mcg/mL: Susceptible Escherichia coli Gentamicin NHUNG <=1 mcg/mL: Susceptible Escherichia coli Imipenem NHUNG 2 mcg/mL: Resistant Escherichia coli Levofloxacin NHUNG >4 mcg/mL: Resistant Escherichia coli Meropenem NHUNG 1 mcg/mL: Resistant Escherichia coli Tobramycin NHUNG 1 mcg/mL: Susceptible Escherichia coli Ampicillin/Sulbactam NHUNG >16/8 mcg/mL: Resistant Escherichia coli Trimethoprim/Sulfamethoxazole NHUNG >2/38 mcg/mL: Resistant Escherichia coli Tetracycline NHUNG >8 mcg/mL: Resistant Escherichia coli Ertapenem NHUNG >1 mcg/mL: Resistant Escherichia coli Tigecycline NHUNG <=0.5 mcg/mL: Susceptible Escherichia coli Cefotaxime NHUNG mcg/mL: Resistant Escherichia coli Cephalothin NHUNG mcg/mL: Resistant Escherichia coli Ceftazidime-Avibactam KB mm: Susceptible Escherichia coli Ceftolozane-Tazobactam KB mm: Resistant Escherichia coli Fosfomycin KB mm: Susceptible Escherichia coli Polymixin B KB mm: Susceptible Escherichia coli Meropenem/Vaborbactam KB mm: Susceptible Escherichia coli Ampicillin NHUNG >16 mcg/mL: Resistant Providencia stuartii Amoxicillin/Clavulanate NHUNG >16/8 mcg/mL: Resistant Providencia stuartii Amikacin NHUNG <=4 mcg/mL: Susceptible Providencia stuartii Aztreonam NHUNG 2 mcg/mL: Susceptible Providencia stuartii Ceftazidime NHUNG 8 mcg/mL: Resistant Providencia stuartii Ciprofloxacin NHUNG >2 mcg/mL: Resistant Providencia stuartii Ceftriaxone NHUNG >32 mcg/mL: Resistant Providencia stuartii Cefuroxime Sodium [place]G mcg/mL: Resistant Providencia stuartii Cefazolin NHUNG >32 mcg/mL: Resistant Providencia stuartii Cefepime NHUNG 8 mcg/mL: Resistant Providencia stuartii Nitrofurantoin NHUNG >64 mcg/mL: Resistant Providencia stuartii Cefoxitin NHUNG <=4 mcg/mL: Susceptible Providencia stuartii Gentamicin NHUNG mcg/mL: Resistant Providencia stuartii Levofloxacin NHUNG 2 mcg/mL: Resistant Providencia stuartii Meropenem NHUNG <=0.125 mcg/mL: Susceptible Providencia stuartii Tobramycin [place] mcg/mL: Resistant Providencia stuartii Ampicillin/Sulbactam NHUNG >16/8 mcg/mL: Resistant Providencia stuartii Trimethoprim/Sulfamethoxazole NHUNG <=0.5/9.5 mcg/mL: Susceptible Providencia stuartii Tetracycline [place] >8 mcg/mL: Resistant Providencia stuartii Piperacillin/Tazobactam NH[place]G 4/4 mcg/mL: Susceptible Providencia stuartii Ertapenem [place] <=0.125 mcg/mL: Susceptible Providencia stuartii Tigecycline [place] mcg/mL: Resistant Providencia stuartii Performing Organization Address City/[facility] Ph one Number [facility] DEPARTMENT OF [address] [place] [address] PATHOLOGY AND GENOMIC MEDICINE [facility] [address] [place] [address] [facility] * Urinalysis screen and microscopy, with reflex to culture (01/10/2020 10:43 PM CDT) Only the most recent of 6 results within the time period is included. Specimen site Clean catch [facility] Color, UA Sasha [facility] Appearance, UA Turbid [facility] Specific 1.018 1.001 - 1.035 [place] gravity, [facility] pH, UA 6.0 5.0 - 8.5 [facility] Protein, UA 3+ (A) Negative [facility] Glucose, UA Negative Negative [facility] Ketones, UA Negative Negative [facility] Bilirubin, UA Negative Negative [facility] Blood, UA Small (A) Negative [facility] Nitrite, UA Negative Negative [facility] Urobilinogen, Negative <2.0 [facility] Leukocyte Large (A) Negative [place] esterase, [facility] WBC, UA >200 (H) 0 - 1 /HPF [facility] RBC, UA 19 (H) 0 - 5 /HPF [facility] Bacteria, UA Few None seen [facility] Yeast, UA None seen [facility] Yeast with None seen [place] [facility] Specimen Urine Performing Organization Address City/[facility] Ph one Number [facility] DEPARTMENT OF [address] [place] [id number] PATHOLOGY AND GENOMIC MEDICINE [facility] [address] [place] [address] HOSPITAL * Beta hydroxybutyrate (01/10/2020 10:08 PM CDT) Beta 0.05 0.02 - 0.27 mmol/L [place] hydroxybutyrate [facility] Specimen Blood Performing Organization Address City/[facility] Ph one Number [facility] DEPARTMENT OF [address] [facility] [place] [address] PATHOLOGY AND GENOMIC MEDICINE [facility] [address] * Blood culture, aerobic & anaerobic (01/10/2020 10:08 PM CDT) Only the most recent of 8 results within the time period is included. Pathologist [facility] Blood culture No growth after 5 days of [place] isolate incubation. ORIENTAL ORTHODOX Comment: HOSPITAL Specimen Information Specimen Source: Blood Specimen Site: [facility] Specimen Blood Performing Organization Address City/[facility] Ph one Number [facility] DEPARTMENT OF [address] [place] [address] PATHOLOGY AND [facility] MEDICINE [address] * Partial thromboplastin time, activated (01/10/2020 10:08 PM CDT) Only the most recent of 4 results within the time period is included. Pathologist [facility] PTT 32.8 23.0 - 36.0 sec [place] Comment: ORIENTAL ORTHODOX PTT therapeutic range for [facility] unfractionated heparin is HOSPITAL 61.0-112.0 seconds which corresponds to Anti-Xa 0.3-0.7 U/ml. Specimen Blood Performing Organization Address City/[facility] Ph one Number [facility] DEPARTMENT OF [address] [place] [address] PATHOLOGY AND GENOMIC MEDICINE [facility] [address] * Prothrombin time with INR (01/10/2020 10:08 PM CDT) Only the most recent of 4 results within the time period is included. Pathologist [facility] Prothrombin 13.3 11.5 - 14.5 sec [facility] INR 1.01 [place] Comment: ORIENTAL ORTHODOX For patients on anticoagulant [facility] therapy, reference ranges HOSPITAL below: Indication: INR Value Treatment of Venous Thrombosis, 2.0-3.0 pulmonary emboli, or prophylaxis of a venous thrombosis, or systemic emboli. High dose, high risk patients 3.0-4.5 with mechanical valves. NOTE: INR values over 3.0 are sometimes associated with gastrointestinal hemorrhage, especially values over 4.0. Specimen Blood Performing Organization Address City/[facility] Ph one Number [facility] [place] [address] [place] [address] PATHOLOGY AND GENOMIC MEDICINE [address] * B natriuretic peptide (01/10/2020 10:08 PM CDT) Only the most recent of 5 results within the time period is included. BNP 11 0 - 100 pg/mL [facility] Specimen Blood Performing Organization Address City/[facility] Ph one Number [facility] DEPARTMENT OF [address] [place] [address] PATHOLOGY AND GENOMIC MEDICINE [address] * Lipase level (01/10/2020 10:08 PM CDT) Only the most recent of 3 results within the time period is included. Lipase 42 13 - 60 U/L [facility] Specimen Blood Performing Organization Address City/[facility] Ph one Number [facility] DEPARTMENT OF [address] [place] [address] PATHOLOGY AND GENOMIC MEDICINE [address] * Creatine kinase, total (CPK) (01/10/2020 10:08 PM CDT) Only the most recent of 2 results within the time period is included. Creatine kinase 122 39 - 308 U/L [facility] Specimen Blood Performing Organization Address City/[facility] Ph one Number [facility] DEPARTMENT OF [address] [place] [address] PATHOLOGY AND GENOMIC MEDICINE [address] * Comprehensive metabolic panel (01/10/2020 10:08 PM CDT) Only the most recent of 5 results within the time period is included. Sodium 134 (L) 135 - 150 mEq/L [facility] Potassium 4.0 3.5 - 5.0 mEq/L [facility] Chloride 97 (L) 98 - 112 mEq/L [facility] CO2 18 (L) 24 - 31 mmol/L [facility] Anion gap 19@ANIO (H) 7 - 15 mEq/L [facility] BUN 25 (H) 7 - 18 mg/dL [facility] Creatinine 2.20 (H) 0.70 - 1.20 mg/dL [facility] Glucose 106 (H) 65 - 100 mg/dL [facility] Calcium 9.7 8.3 - 10.2 mg/dL [facility] Protein 9.8 (H) 6.3 - 8.3 g/dL [facility] Albumin 2.9 (L) 3.5 - 5.0 g/dL [facility] A/G ratio 0.4 (L) 0.7 - 3.8 [facility] Alkaline 109 0 - 129 U/L [place] phosphatase [facility] AST 13 10 - 50 U/L [facility] ALT 8 5 - 50 U/L [facility] Total bilirubin 0.3 0.2 - 1.2 mg/dL [facility] Specimen Blood Performing Organization Address City/[facility] Ph one Number [facility] DEPARTMENT OF [address] [place] [address] PATHOLOGY AND GENOMIC MEDICINE [address] * POC glucose (01/10/2020 9:59 PM CDT) Only the most recent of 6 results within the time period is included. POC glucose 100 65 - 100 mg/dL [place] Comment: ORIENTAL ORTHODOX Rosin Barrel Filler Name: Magno Mcgregor [place] Device ID: [id number] [facility] Specimen Blood Performing Organization Address City/[facility] Ph one Number [facility] DEPARTMENT OF [address] [place] [address] PATHOLOGY AND GENOMIC MEDICINE [address] * ECG 12 lead (01/10/2020 9:52 PM CDT) Only the most recent of 8 results within the time period is included. Ventricular 115 [facility] rate Atrial rate 115 [facility] MD interval 136 [facility] QRSD interval 90 [facility] QT interval 310 [facility] QTC interval 428 [facility] P axis 1 47 [facility] QRS axis 1 -11 [facility] T wave axis 3 [facility] EKG impression Sinus tachycardia-Otherwise [facility] MUSE normal ECG-In automated comparison with ECG of -2019 19:30,-Inverted T waves have replaced nonspecific T wave abnormality in Inferior leads- Specimen Narrative Performed At This result has an attachment that is n ot available. Performing Organization Address City/[facility] Ph one Number [facility] MUSE [address] [place] [address] * Manual differential (12/26/2019 5:22 AM CDT) Only the most recent of 5 results within the time period is included. Manual PERFORMED [place] differential [facility] Neutrophils 38.0 36.0 - 66.0 % [facility] Lymphocytes 47.0 (H) 24.0 - 44.0 % [facility] Monocytes 7.0 (H) 0.0 - 6.0 % [facility] Eosinophils 7.0 (H) 0.0 - 6.0 % [facility] Basophils 1.0 0.0 - 1.2 % [facility] Metamyelocytes 0 0 - 1 % [facility] Promyelocytes 0 0 - 1 % [facility] Platelet slide [place] adequate [place] review [facility] Anisocytosis 1+ [facility] Ovalocytes 1+ [facility] [place] cells 1+ [facility] Specimen Performing Organization Address City/State/[facility] Ph one Number [facility] DEPARTMENT OF [address] [place] [address] PATHOLOGY AND GENOMIC MEDICINE [place] [address] [place] [address] HOSPITAL * Phosphorus level (12/24/2019 10:23 AM CDT) Only the most recent of 8 results within the time period is included. Phosphorus 4.9 (H) 2.4 - 4.5 mg/dL [facility] Specimen Blood Performing Organization Address [facility] Ph one Number [facility] DEPARTMENT OF [address] [facility] [place] [address] PATHOLOGY AND GENOMIC MEDICINE [facility] [address] [place] [address] HOSPITAL * Magnesium level (12/24/2019 10:23 AM CDT) Only the most recent of 8 results within the time period is included. Magnesium 1.10 (L) 1.60 - 2.60 mg/dL [facility] Specimen Blood Performing Organization Address [facility] Ph one Number [facility] DEPARTMENT OF [address] [place] [address] PATHOLOGY AND GENOMIC MEDICINE [address] * Occult blood, stool (12/22/2019 11:30 PM CDT) Occult blood, Negative for occult blood. [place] stool Comment: ORIENTAL ORTHODOX Specimen Information [place] Specimen Source: Stool HOSPITAL Specimen Site: Nonpreserved Specimen Stool - Nonpreserved Performing Organization Address [facility] Ph one Number [facility] DEPARTMENT OF [address] [place] [address] PATHOLOGY AND GENOMIC MEDICINE [facility] [address] [place] [address] HOSPITAL * Sodium level, urine, random (12/22/2019 9:47 PM CDT) Sodium, urine, 79 mEQ/L [facility] Specimen Urine - Urine, clean catch Performing Organization Address [facility] Ph one Number [facility] DEPARTMENT OF [address] [facility] [place] [address] PATHOLOGY AND GENOMIC MEDICINE [facility] [address] [facility] [address] * Protein, urine, random (12/22/2019 9:47 PM CDT) Protein, urine 60 mg/dL [place] random [facility] Specimen Urine - Urine, clean catch Performing Organization Address [facility] Ph one Number [facility] DEPARTMENT OF [address] [place] [address] PATHOLOGY AND GENOMIC MEDICINE [facility] [address] * Potassium, urine, random (12/22/2019 9:47 PM CDT) Potassium, 12 mEq/L [place] urine, random [facility] Specimen Urine - Urine, clean catch Performing Organization Address [facility] Ph one Number [facility] DEPARTMENT OF [address] [place] [address] PATHOLOGY AND GENOMIC MEDICINE [address] * Creatinine level, urine, random (12/22/2019 9:47 PM CDT) Creatinine, 22 mg/dL [place] urine, random [facility] Specimen Urine - Urine, clean catch Performing Organization Address [facility] Ph one Number [facility] DEPARTMENT OF [address] [place] [address] PATHOLOGY AND GENOMIC MEDICINE [facility] [address] [place] [address] * Hemoglobin & hematocrit (12/22/2019 9:42 PM CDT) Only the most recent of 4 results within the time period is included. HGB 8.2 (L) 13.0 - 17.3 g/dL [facility] HCT 26.8 (L) 34.0 - 45.0 % [facility] Specimen Blood Performing Organization Address [facility] Ph one Number [facility] DEPARTMENT OF [address] [place] [address] PATHOLOGY AND GENOMIC MEDICINE [facility] [address] [place] [address] HOSPITAL * MRI Ankle Wo Contrast Right (12/22/2019 8:08 PM CDT) Specimen Narrative Performed At EXAMINATION: MRI ANKLE WO CONTRAST RIGHT HM RADIAN T CLINICAL HISTORY: ankle swelling TECHNIQUE: Multiplanar, multisequence M R imaging examination of the right ankle obtained. COMPARISON: X-ray yesterday IMPRESSION: LIGAMENTS: The distal fibula has been resected. Old fracture deformity of the distal fibular metadiaphysis. The tibio fibular ligaments are not visualized, with only scarring present. Likewise, t he talofibular ligaments are not visualized, replaced by scarring, in conjunction with the resec tion of the distal fibula. Scarring of the remnant calcaneofibular ligament. Scarring along the deep deltoid ligaments. Tibial spring appears well-m aintained. Chronic sprain and scarring of the superomedial band of spring ligament. TENDONS: Mild tenosynovitis and chron ic tendinitis of the inframalleolar posterior tibial tendon, with low-grade interstitial partial tearing, reconstituting distally. FHL and FDL te ndons are well-maintained. Low-grade interstitial partial tearing of the anterior tibial tendon. The other a nterior tendons are well-maintained, as are the lateral and Achilles tendons. BONE MARROW: Patchy abnormal marrow s ignal throughout the talus, and to a lesser degree the calcaneus and proxima lly in the cuboid. This is at least partially due to the metal artifact fro m the tibial intramedullary nail, though also secondary to post traumatic arthrosis. There is mild with marginal contour deformity of the talar dome likely secondary to the old injury . No osteochondral lesion identified. Skin dressing material laterally in the ankle, with minimal marrow signal abnormality in the lateral subcortical marrow of the remna nt distal fibula. This is nonspecific, may be due to the prior resection or os teitis. No definite osteolysis to indicate osteomyelitis.. SINUS TARSI: Synovitis and scarring w ithin sinus Tarsi. PLANTAR FASCIA: Intact PERIARTICULAR SOFT TISSUES: Diffuse m yoedema may be infectious or reactive. Moderate subcutaneous edema dorsally wi thin the foot. Skin ulceration laterally in the ankle with dressing material. No abscess identified. SUMMARY: 1.No definite osteomyelitis. Postop khoa nge versus osteitis of the distal fibula, though if there is high concern for ost eomyelitis, dual tracer nuclear medicine scan with a 3 phase bone scan and indiu m-111 labeled white blood cell scan would be more specific. 2.Other findings as above [id number] Procedure Note Hm Interface, Radiology Results Incoming - 12/22/2019 8:40 PM CDT EXAMINATION: MRI ANKLE WO CONTRAST RIGHT CLINICAL HISTORY: ankle swelling TECHNIQUE: Multiplanar, multisequence MR imaging examination of the right ankle obtained. COMPARISON: X-ray yesterday IMPRESSION: LIGAMENTS: The distal fibula has been resected. Old fracture deformity of the distal fibular metadiaphysis. The tibiofibular ligaments are not visualized, with only scarring present. Likewise, the talofibular ligaments are not visualized, replaced by scarring, in conjunction with the resection of the distal fibula. Scarring of the remnant calcaneofibular ligament. Scarring along the deep deltoid ligaments. Tibial spring appears well-maintained. Chronic sprain and scarring of the superomedial band of spring ligament. TENDONS: Mild tenosynovitis and chronic tendinitis of the inframalleolar posterior tibial tendon, with low-grade interstitial partial tearing, reconstituting distally. FHL and FDL tendons are well-maintained. Low-grade interstitial partial tearing of the anterior tibial tendon. The other anterior tendons are well-maintained, as are the lateral and Achilles tendons. BONE MARROW: Patchy abnormal marrow signal throughout the talus, and to a lesser degree the calcaneus and proximally in the cuboid. This is at least partially due to the metal artifact from the tibial intramedullary nail, though also secondary to post traumatic arthrosis. There is mild with marginal contour deformity of the talar dome likely secondary to the old injury. No osteochondral lesion identified. Skin dressing material laterally in the ankle, with minimal marrow signal abnormality in the lateral subcortical marrow of the remnant distal fibula. This is nonspecific, may be due to the prior resection or osteitis. No definite osteolysis to indicate osteomyelitis.. SINUS TARSI: Synovitis and scarring within sinus Tarsi. PLANTAR FASCIA: Intact PERIARTICULAR SOFT TISSUES: Diffuse myoedema may be infectious or reactive. Moderate subcutaneous edema dorsally within the foot. Skin ulceration laterally in the ankle with dressing material. No abscess identified. SUMMARY: 1.No definite osteomyelitis. Postop bernstein ge versus osteitis of the distal fibula, though if there is high concern for osteomyelitis, dual tracer nuclear medicine scan with a 3 phase bone scan and indium-111 labeled white blood cell scan would be more specific. 2.Other findings as above [id number] Performing Organization Address City/State/[facility] Ph one Number [facility] [address] [place] [address] * MRI Lower Extremity Wo Contrast Right (12/22/2019 8:08 PM CDT) Specimen Narrative Performed At EXAMINATION: MRI LOWER EXTREMITY WO CONTRAST RIGHT [facility] CLINICAL HISTORY: possible mckinney osteo TECHNIQUE: Multiplanar, multisequence M R imaging examination of right lower leg, without contrast.. COMPARISON: X-ray yesterday IMPRESSION: 1.Sensitivity of the exam is decreased due to metal artifact from the intramedullary nail in the tibia. Motio n artifact also compromises evaluation. The distal fibula has been resected. 2.There is minimal marrow signal abnorm ality at the resection end of the fibula, as well as distally in the tibia, thoug h this may be artifactual from the intramedullary nail and or osteitis. No T1 marrow signal abnormality is identified, and no definite cortical osteolysis to indicate osteomy elitis. 3.Moderate subcutaneous edema indicativ e of cellulitis. Diffuse myoedema indicative of infectious versus reactiv e myositis. Moderate fatty atrophy of the visualized musculature. 4.No focal fluid collection to indicate an abscess. SUMMARY: No evidence of osteomyelitis. Evaluate limited by the intramedullary nail and motion [id number] Procedure Note Interface, Radiology Results Incoming - 12/22/2019 8:30 PM CDT EXAMINATION: MRI LOWER EXTREMITY WO CONTRAST RIGHT CLINICAL HISTORY: possible mckinney osteo TECHNIQUE: Multiplanar, multisequence MR imaging examination of right lower leg, without contrast.. COMPARISON: X-ray yesterday IMPRESSION: 1.Sensitivity of the exam is decreased d ue to metal artifact from the intramedullary nail in the tibia. Motion artifact also compromises evaluation. The distal fibula has been resected. 2.There is minimal marrow signal abnorma lity at the resection end of the fibula, as well as distally in the tibia, though this may be artifactual from the intramedullary nail and or osteitis. No T1 marrow signal abnormality is identified, and no definite cortical osteolysis to indicate osteomyelitis. 3.Moderate subcutaneous edema indicative of cellulitis. Diffuse myoedema indicative of infectious versus reactive myositis. Moderate fatty atrophy of the visualized musculature. 4.No focal fluid collection to indicate an abscess. SUMMARY: No evidence of osteomyelitis. Evaluate limited by the intramedullary nail and motion [id number] Performing Organization Address City/[facility] Ph one Number [facility] [address] [place] [address] * Vancomycin level, random (12/22/2019 7:04 AM CDT) Only the most recent of 2 results within the time period is included. Vancomycin, 19.0 ug/mL [place] random Comment: ORIENTAL ORTHODOX Therapeutic Ranges: [facility] Peak 30.0 - [facility]OSPITAL 40.0 ug/mL Trough 10.0 - 20.0 ug/mL Specimen Blood Performing Organization Address City/[facility] Ph one Number [facility] DEPARTMENT OF [address] [place] [address] PATHOLOGY AND GENOMIC MEDICINE [place] ORIENTAL ORTHODOX [place] [address] [place], [place] [id number] [place] [address] * US Renal (12/21/2019 5:15 PM CDT) Only the most recent of 2 results within the time period is included. Specimen Narrative Performed At EXAMINATION: US RENAL [facility] CLINICAL HISTORY: eval L kidney for h ydro - solitary kidney COMPARISON: Most recent prior IMPRESSION: 1. The right kidney is not identified 2. The left kidney measures 16.8 cm in length. 3. Cysts: No definite cysts are identif ied. 4. Hydronephrosis.: Severe left-sided h ydronephrosis 5. Masses: No suspicious masses. 6. Renal echogenicity: Mildly increas ed which could be seen with medical renal disease 7. Bladder: There is a Greene catheter i n the bladder which is decompressed. 8. Calculi: No calculi 9. Other Findings:None [facility]-[id number] Procedure Note Hm Interface, Radiology Results Incoming - 12/21/2019 5:42 PM CDT EXAMINATION: US RENAL CLINICAL HISTORY: eval L kidney for hydro - solitary kidney COMPARISON: Most recent prior IMPRESSION: 1. The right kidney is not identified 2. The left kidney measures 16.8 cm in l ength. 3. Cysts: No definite cysts are identifi ed. 4. Hydronephrosis.: Severe left-sided hy dronephrosis 5. Masses: No suspicious masses. 6. Renal echogenicity: Mildly increased which could be seen with medical renal disease 7. Bladder: There is a Greene catheter in the bladder which is decompressed. 8. Calculi: No calculi 9. Other Findings:None [id number] Performing Organization Address City/State/Zipcode Ph one Number [facility] [address] [place] [address] * XR Tibia Fibula 2 Vw Right (12/21/2019 8:04 AM CDT) Specimen Narrative Performed At Procedure:XR TIBIA FIBULA 2 VW RIGHT [facility] REFERRING PHYSICIAN: MICHAEL CLAYTON HISTORY: Swelling redness and pain COMPARISON: None FINDINGS: No evidence of acute fracture or disloc ation is seen. Postsurgical change of ORIF of the tibia is seen. The intramed ullary ronen and cortical screw transfixing a healed fracture deformity of of the d istal one third of the tibia is intact. Old fracture deformity of the lateral malleolus is a lso seen. Osteopenia is noted. The joint spaces are maintained. No osteolytic or osteoblastic lesion is identify. Mild subcutaneous edema of the leg is n oted. Regional soft tissue is otherwise unremarkable. No radiopaque foreign bod y is seen. XR TIBIA FIBULA 2 VW RIGHT acquired. IMPRESSION: Mild subcutaneous edema of the right le g with no radiographic evidence of acute fracture or dislocation of the right ti cleopatra or fibula. [id number] Procedure Note Interface, Radiology Results Incoming - 12/21/2019 8:25 AM CDT Procedure:XR TIBIA FIBULA 2 VW RIGHT REFERRING PHYSICIAN: MICHAEL CLAYTON HISTORY: Swelling redness and pain COMPARISON: None FINDINGS: No evidence of acute fracture or dislocation is seen. Postsurgical change of ORIF of the tibia is seen. The intramedullary ronen and cortical screw transfixing a healed fracture deformity of of the distal one third of the tibia is intact. Old fracture deformity of the lateral malleolus is also seen. Osteopenia is noted. The joint spaces are maintained. No osteolytic or osteoblastic lesion is identify. Mild subcutaneous edema of the leg is noted. Regional soft tissue is otherwise unremarkable. No radiopaque foreign body is seen. XR TIBIA FIBULA 2 VW RIGHT acquired. IMPRESSION: Mild subcutaneous edema of the right leg with no radiographic evidence of acute fracture or dislocation of the right tibia or fibula. [id number] Performing Organization Address City/State/Zipcode Ph one Number [facility] [address] [place] [address] * XR Ankle 3+ Vw Right (12/21/2019 8:03 AM CDT) Specimen Narrative Performed At EXAMINATION: XR ANKLE 3 VW RIGHT [facility] CLINICAL HISTORY: OSteomyelitis suspe cted COMPARISON: Same day right tib-fib x- ray, tib-fib x-ray 02/24/2018 IMPRESSION: 1.Distal portion of right tibia intrame dullary nail with 2 distal screws is seen, with healing of a comminuted spir al fracture of the right tibia. Some callus and osseous bridging is present. Resection of the lateral malleolus, and ankylosis with solid bony union across the syndesmosis, brid ged by the distal interlocking screw, with a 1.1 cm ossific fragment present laterally. No acute fracture identified. 2.Ankle mortise appears intact. There h as been some ossification of the tibiofibular syndesmosis. 3.Mild soft tissue swelling is present about the ankle. There are no findings to indicate osteomyelitis. [facility]-[id number] Dictated and approved by radiology resi dent/fellow: Harvey Mcallister M.D. I, Spencer Chang, personally reviewed t he images and resident's/fellow's findings and agree with the final repor t. Procedure Note Interface, Radiology Results Incoming - 12/21/2019 8:41 AM CDT EXAMINATION: XR ANKLE 3 VW RIGHT CLINICAL HISTORY: OSteomyelitis suspected COMPARISON: Same day right tib-fib x-ray, tib-fib x-ray 02/24/2018 IMPRESSION: 1.Distal portion of right tibia intramed ullary nail with 2 distal screws is seen, with healing of a comminuted spiral fracture of the right tibia. Some callus and osseous bridging is present. Resection of the lateral malleolus, and ankylosis with solid bony union across the syndesmosis, bridged by the distal interlocking screw, with a 1.1 cm ossific fragment present laterally. No acute fracture identified. 2.Ankle mortise appears intact. There stock s been some ossification of the tibiofibular syndesmosis. 3.Mild soft tissue swelling is present a bout the ankle. There are no findings to indicate osteomyelitis. [facility]-[id number] Dictated and approved by radiology director/fellow: Harvey Mcallister M.D. I, Jair Thibodeaux, personally reviewed the images and resident's/fellow's findings and agree with the final report. Performing Organization Address City/State/[facility] Ph one Number KASANDRA BRADY [address] [place] [address] * Transfuse RBC (12/21/2019 4:12 AM CDT) * Prepare RBC, 1 Units (12/20/2019 7:48 PM CDT) Only the most recent of 2 results within the time period is included. Product name Red Blood Cells -1, Leukored HOUS N [facility] Unit number [id number] [facility] Product code [id number] [facility] Dispense status Transfused [facility] Blood [id number] [place] expiration date [facility] Blood type code 6200 [facility] Blood type A POSITIVE [facility] Compatibility Compatible [facility] Specimen Blood Performing Organization Address City/[facility] Ph one Number [facility] DEPARTMENT OF [address] [place] [address] [place] [address] PATHOLOGY AND GENOMIC MEDICINE [address] [place] [address] HOSPITAL * Type and screen (12/20/2019 7:48 PM CDT) ABO grouping A [facility] Rh type POS [facility] Antibody screen NEG [place] (gel) [facility] Specimen Blood Performing Organization Address City/State/[facility] Ph one Number [facility] DEPARTMENT OF [address] [place] [address] [place] [address] PATHOLOGY AND GENOMIC MEDICINE [address] [place] [address] HOSPITAL * Smear review (12/20/2019 6:54 PM CDT) Only the most recent of 4 results within the time period is included. Platelet slide Chuyita adequate [place] review [facility] Anisocytosis 1+ [facility] Specimen Performing Organization Address City/State/Zipcode Ph one Number [facility] DEPARTMENT OF [address] [place] [address] PATHOLOGY AND GENOMIC MEDICINE [facility] [address] [place] [address] HOSPITAL * Hepatic function panel (12/20/2019 6:54 PM CDT) Only the most recent of 2 results within the time period is included. Albumin 2.4 (L) 3.5 - 5.0 g/dL [facility] Total bilirubin 0.3 0.2 - 1.2 mg/dL [facility] Bilirubin <0.2 0.0 - 0.4 mg/dL [place] direct [facility] Alkaline 82 0 - 129 U/L [place] phosphatase [facility] Protein 8.4 (H) 6.3 - 8.3 g/dL [facility] ALT 8 5 - 50 U/L [facility] AST 13 10 - 50 U/L [facility] Specimen Blood Performing Organization Address City/State/[facility] Ph one Number [facility] DEPARTMENT OF [address] [place] [address] PATHOLOGY AND GENOMIC MEDICINE [facility] [address] * CRITICAL CARE (12/20/2019 6:43 PM CDT) Narrative Performed At Jimmy Merchant MD 020 2:59 PM Critical Care Performed by: Jimmy Merchant M D Authorized by: Jimmy Merchant MD Critical care provider statement: Critical care time (minutes): 77 Critical care time was exclusive of: Separately billable procedures and treating other patients and teaching ti me Critical care was necessary to treat or prevent imminent or life-threatening deterioration of the f ollowing conditions: Renal failure and sepsis Critical care was time spent personal ly by me on the following activities: Development of treatment plan with patient or surrogate, discussions with consultants, discussio ns with primary provider, evaluation of patient's response to maxwell atment, examination of patient, obtaining history from patient or surro gate, ordering and performing treatments and interventions, ordering and review of laboratory studies, ordering and review of radiographic venessa dies, pulse oximetry, re-evaluation of patient's condition and review of ol d charts * Respiratory pathogen panel (10/17/2019 2:03 AM CDT) Respiratory Negative for all pathogens [place] pathogen panel tested: ORIENTAL ORTHODOX Negative for Adenovirus HOSPITAL Negative for Coronavirus HKU1 Negative for Coronavirus NL63 Negative for Coronavirus 229E Negative for Coronavirus OC43 Negative for Human Metapneumovirus Negative for Rhinovirus/Enterovirus Negative for Influenza A Negative for Influenza A/H1 Negative for Influenza A/H3 Negative for Influenza A/H1-2009 Negative for Influenza B Negative for Parainfluenza Virus 1 Negative for Parainfluenza Virus 2 Negative for Parainfluenza Virus 3 Negative for Parainfluenza Virus 4 Negative for Respiratory Syncytial Virus Negative for Bordetella pertussis Negative for Chlamydophila pneumoniae Negative for Mycoplasma pneumoniae This real-time PCR assay detects the presence of nucleic acids (RNA or DNA) for the respiratory pathogens listed. A result of "Not-detected" does not exclude the possibility of the presence of one or more pathogens at concentrations less than the detectable limits of the assay. Comment: Specimen Information Specimen Source: Nares Specimen Site: Right Specimen Nares - Right Performing Organization Address City/State/Zipcomn Ph one Number [facility] DEPARTMENT OF [address] [place] [address] PATHOLOGY AND GENOMIC MEDICINE [address] * Urine drugs of abuse screen (10/17/2019 2:03 AM CDT) Only the most recent of 3 results within the time period is included. Amphetamine Negative [place] screen, urine ORIENTAL ORTHODOX [facility] Barbiturate Negative [place] screen, urine ORIENTAL ORTHODOX [facility] Benzodiazepine Negative [place] screen, urine ORIENTAL ORTHODOX [facility] Cocaine screen, Negative [place] urine [facility] Methadone Negative [place] metabolite ORIENTAL ORTHODOX (EDDP), urine [facility] Opiates screen, Negative [place] urine [facility] Oxycodone Negative [place] screen, urine [facility] Phencyclidine Negative [place] screen, urine [facility] Cannabinoid Positive (A) [place] screen, urine Comment: ORIENTAL ORTHODOX Drug screen minimum [facility] concentration of detectability [facility]OSPITAL Amphetamines 1000 ng/mL Barbiturates 200 ng/mL Benzodiazepines 300 ng/mL Cocaine 300 ng/mL Methadone 300 ng/mL Opiates 300 ng/mL Oxycodone 300 ng/mL Phencyclidine 25 ng/mL Cannabinoids 50 ng/mL Tricyclics 1000 ng/mL Results are from screening tests and should only be used for medical evaluation. Drug testing for legal purposes requires definitive (or confirmatory) testing methods, which are available upon request. Contact the laboratory if definitive testing is required. Specimen Urine Performing Organization Address City/[facility] Ph one Number [facility] DEPARTMENT OF [address] [place] [address] PATHOLOGY AND GENOMIC MEDICINE [facility] [address] [place], [place] [id number] [place] [address] * XR Chest 1 Vw Portable (10/16/2019 4:55 PM CDT) Only the most recent of 6 results within the time period is included. Specimen Narrative Performed At XR CHEST 1 VW PORTABLE [facility]: elevated white c ount COMPARISON: 08/07/2019. IMPRESSION: The lungs are clear of focal consolidat ion. The cardiomediastinal silhouette demonstrates a normal contour. There is no pleural effusion or gross pneumothorax. There are no acute osseou s abnormalities. [facility]-[id number] Procedure Note Interface, Radiology Results Incoming - 10/16/2019 5:00 PM CDT XR CHEST 1 VW PORTABLE CLINICAL INDICATION: elevated white count COMPARISON: 08/07/2019. IMPRESSION: The lungs are clear of focal consolidation. The cardiomediastinal silhouette demonstrates a normal contour. There is no pleural effusion or gross pneumothorax. There are no acute osseous abnormalities. [facility]-[id number] Performing Organization Address [facility] one Number [facility] [address] [place] [address] * CT Abdomen Pelvis W Contrast (10/16/2019 12:28 AM CDT) Specimen Narrative Performed At CT ABDOMEN PELVIS W CONTRAST [facility]: eval for renal o bstruction or complication related to ureter stents TECHNIQUE: Multidetector CT of the abdo men and pelvis was performed following intravenous administration of iodinated contrast with multiplanar reformats. CT scans are performed using radiation dose reduction techniques (iterative reconstruction and/or automated exposur e control). Technical factors are evaluated and adjusted to ensure approp riate moderation of exposure. Automated dose management technology is applied to adjust radiation exposure while achieving a diagnostic quality image. COMPARISON: CT 08/06/2019. FINDINGS: Lung bases: Dependent subsegmental at electasis/scarring. Liver: Stable peripheral calcificatio n and capsular retraction of right hepatic lobe. Gallbladder and biliary: Gallbladder is nonvisualized. Mild intrahepatic biliary dilatation. Pancreas: Normal. Spleen: Normal. Gastrointestinal: Left lower quadrant c olostomy. Large and small bowel are normal in caliber. Appendix is visualiz ed and appears normal. Adrenals: Normal. Kidneys and ureters: Right kidney is absent. Left double-J ureteral stent in stable position. No hydronephrosis. Tin y focus of gas in the left renal superior pole calyx. Left kidney demonstrates mu ltiple wedge-shaped hypoenhancing areas greatest at superior pole. No renal/perinephric abs cess. Urinary bladder: Suprapubic catheter is present. Small gas in nondependent urinary bladder. Lymph nodes: No enlarged lymph nodes in the abdomen or pelvis. Peritoneum: No ascites or free air. Vascular: Unremarkable. Reproductive organs: Normal prostate gland and seminal vesicles. Abdominal wall: Stable ischial decubitu s ulcers. Bones: Stable focal kyphotic deformit y at thoracolumbar junction. IMPRESSION: 1. Left pyelonephritis and/or scarring. No renal/perinephric abscess. 2. Gas within left renal superior pole calyx and urinary bladder, may be related to urinary tract infection/emphysematou s pyelitis or recent instrumentation. 3. Left double-J ureteral stent present . No hydronephrosis. 4. Other stable/incidental findings as above. [facility]-[id number] Procedure Note [facility], Radiology Results Incoming - 10/16/2019 12:[address] ABDOMEN PELVIS W CONTRAST CLINICAL INDICATION: eval for renal obstruction or complication related to ureter stents TECHNIQUE: Multidetector CT of the abdomen and pelvis was performed following intravenous administration of iodinated contrast with multiplanar reformats. CT scans are performed using radiation dose reduction techniques (iterative reconstruction and/or automated exposure control). Technical factors are evaluated and adjusted to ensure appropriate moderation of exposure. Automated dose management technology is applied to adjust radiation exposure while achieving a diagnostic quality image. COMPARISON: CT 08/06/2019. FINDINGS: Lung bases: Dependent subsegmental atelectasis/scarring. Liver: Stable peripheral calcification and capsular retraction of right hepatic lobe. Gallbladder and biliary: Gallbladder is nonvisualized. Mild intrahepatic biliary dilatation. Pancreas: Normal. Spleen: Normal. Gastrointestinal: Left lower quadrant colostomy. Large and small bowel are normal in caliber. Appendix is visualized and appears normal. Adrenals: Normal. Kidneys and ureters: Right kidney is absent. Left double-J ureteral stent in stable position. No hydronephrosis. Tiny focus of gas in the left renal superior pole calyx. Left kidney demonstrates multiple wedge-shaped hypoenhancing areas greatest at superior pole. No renal/perinephric abscess. Urinary bladder: Suprapubic catheter is present. Small gas in nondependent urinary bladder. Lymph nodes: No enlarged lymph nodes in the abdomen or pelvis. Peritoneum: No ascites or free air. Vascular: Unremarkable. Reproductive organs: Normal prostate gland and seminal vesicles. Abdominal wall: Stable ischial decubitus ulcers. Bones: Stable focal kyphotic deformity at thoracolumbar junction. IMPRESSION: 1. Left pyelonephritis and/or scarring. No renal/perinephric abscess. 2. Gas within left renal superior pole c caryn and urinary bladder, may be related to urinary tract infection/emphysematous pyelitis or recent instrumentation. 3. Left double-J ureteral stent present. No hydronephrosis. 4. Other stable/incidental findings as a jazzmine. [facility]-[id number] Performing Organization Address [facility] Ph one Number [facility] [address] [place] [address] * Thyroid stimulating hormone (08/19/2019 4:00 AM TRACTOR TRAILER MOVING VAN DRIVER) TSH 3.57 0.55 - 4.78 uIU/mL [facility] Specimen Serum Performing Organization Address City/[facility] Ph one Number [facility] [place] [address] [place] [address] PATHOLOGY AND GENOMIC MEDICINE [facility] [address] [address] [place], [place] [address] [facility] * Airway (08/14/2019 10:42 AM TRACTOR TRAILER MOVING VAN DRIVER) Narrative Performed At Alejo Bedolla CRNA 0 10:44 AM Airway Performed by: Alejo Bedolla CRNA Authorized by: Timothy Oshea MD Location: OR Urgency: Elective Difficult Airway: No Preoxygenated with 100% O2: Yes C-spine Precautions Maintained Througho ut: Yes Mask Ventilation: Easy mask Final Airway Type: Endotracheal airwa y Final Endotracheal Airway: ETT Cuffed: Yes Technique Used: Direct laryngoscopy Devices/Methods Used in Placement: In tubating stylet Insertion Site: Oral Blade Type: Jackson Laryngoscope Blade/Videolaryngoscope Bl barrie Size: 2 ETT Size (mm): 7.0 Cuff at minimum occlusion pressure: Yes Measured from: Teeth ETT to Teeth (cm): 23 Placement Verified by: CO2 detection, d irect visualization and equal breath sounds Laryngoscopic view: Grade IIa - parti al view of glottis Rapid Sequence Induction (RSI): No Modified RSI: No Number of Attempts at Approach: 1 No change in dentition, easy OETT inser tion, no resistance met * Surgical pathology request (08/14/2019 9:49 AM TRACTOR TRAILER MOVING VAN DRIVER) [facility] DEPARTMENT OF PATHOLOGY AND GENOMIC MEDICINE Surgical See link below for PDF Lab [facility] DEPAR TMENT pathology Report OF PATHOLOGY report AND GENOMIC MEDICINE Result status This is Final Report for [facility] DEPARTM ENT [id number] OF PATHOLOGY AND GENOMIC MEDICINE Specimen Performing Organization Address City/[facility] Ph one Number [facility] DEPARTMENT OF [address] [place] [address] PATHOLOGY AND GENOMIC MEDICINE * Gram stain (08/06/2019 5:07 PM TRACTOR TRAILER MOVING VAN DRIVER) Only the most recent of 3 results within the time period is included. Gram stain No WBC's [place] result Occasional Gram negative rods [facility] Comment: HOSPITAL Specimen Information Specimen Source: Urine Specimen Site: Clean catch Specimen Urine Performing Organization Address [facility] Ph one Number [facility] DEPARTMENT OF [address] [place] [address] PATHOLOGY AND GENOMIC MEDICINE [place] ORIENTAL ORTHODOX [address] [place] [address] * IR Non-Tunneled Central Line Placement (04/07/2019 9:33 AM CDT) Specimen Narrative Performed At Performing Radiologist CAITLYN Ward MD Assistants None Anesthesia Type Lidocaine 1% was used for local anesthe tic. Pre Procedure Diagnosis 34-year-old male with pneumonia, possib le pyelonephritis poor venous access and need for antibiotics Post Procedure Diagnosis Status post placement of a non tunneled right internal jugular central venous catheter. Procedure Placement of a nontunneled right intern retail al jugular vein central venous catheter. Technique Written informed consent was obtained p rior to the procedure. All elements of maximal sterile barrier technique were followed. The patient's right neck was sterilely prepared and draped in the ro utine manner. Lidocaine 1% was used for local anesthetic. Using real-time ultrasound guidance, a 21-gauge micropuncture needle was used to access the right internal jugular vein. A 0.018 inch guidewire was advanced centrally through the needle under fluo roscopy. The needle was removed and a micropuncture sheath system was placed. Under ultrasound toro dance, documentation of vessel patency, needle access with permanent recording, and reporting are performed followed by placement of a sheath in the right inte rnal jugular vein. A 0.035 inch J-wire was advanced through the micropuncture sheath and in to the inferior vena cava. The micropuncture sheath was removed; and f ollowing dilatation, a 7-Malaysian, 15 cm long triple-lumen central venous cathet er was then placed over the guidewire. The catheter tip was placed at the right atrium/superior vena cava junction under fluoroscopic guidance. All ports were tested and demonstrate adequ ate flow. The catheter was secured to the skin using 2-0 silk suture. The patient tolerated the procedure well. Radiation dose Ka,r = 12 mGy Complications None Specimens Removed None Estimated Blood Loss Less than 1 mL Blood/Blood Products Administered None Grafts/Implants As described in the above report Impression: Ultrasound and fluoroscopy guided place ment of a 7-Malaysian, 15 cm long triple lumen central venous catheter via the r ight internal jugular vein, as detailed above. The catheter tip lies at the rig ht atrium/superior vena cava junction and is ready for use. [id number] Procedure Note Hm Interface, Radiology Results Incoming - 04/07/2019 5:20 PM CDT Performing Radiologist Taye Ward MD Assistants None Anesthesia Type Lidocaine 1% was used for local anesthetic. Pre Procedure Diagnosis 34-year-old male with pneumonia, possibl e pyelonephritis poor venous access and need for antibiotics Post Procedure Diagnosis Status post placement of a non tunneled right internal jugular central venous catheter. Procedure Placement of a nontunneled right internal jugular vein central venous catheter. Technique Written informed consent was obtained prior to the procedure. All elements of maximal sterile barrier technique were followed. The patient's right neck was sterilely prepared and draped in the routine manner. Lidocaine 1% was used for local anesthetic. Using real-time ultrasound guidance, a 21-gauge micropuncture needle was used to access the right internal jugular vein. A 0.018 inch guidewire was advanced centrally through the needle under fluoroscopy. The needle was removed and a micropuncture sheath system was placed. Under ultrasound guidance, documentation of vessel patency, needle access with permanent recording, and reporting are performed followed by placement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 signal abnormality. Ventricles and sulci are normal in appearance for age. No abnormal susceptibility. Basal cisterns are clear. Major intracranial flow voids are maintained. Slight T1 hyperintensity within the adenohypophysis corresponding to hyperdensity on CT which is stable compared with multiple exams dating back to 10/25/2018. If clinically indicated, this could be further evaluated with dynamic contrast-enhanced pituitary protocol. Orbits are normal in appearance. Visualized paranasal sinuses and mastoid air cells are clear. IMPRESSION: No acute intracranial abnormality. [id number] Performing Organization Address City/State/Zipcode Ph one Number [facility] [address] [place] [address] * EEG (routine) (03/31/2019 1:32 PM CDT) Narrative Performed At This result has an attachment that is n ot available. ROUTINE EEG REPORT Patient Name: Jimmy Gastelum Jr. Date of : 1985 Gender: male Date of Procedure: 03/31/2019 Indication Altered mental status Background activity 6 c/s. Central acti vity 3-4 c/s. No focal or lateralizing features detected. Awake Recording: was performed, no abno rmality detected Sleep Recording: was not performed Hyperventilation: was not performed Photic Stimulation: was performed, no a bnormality detected Impression Mild slowness of background activity co mpatible with diffuse encephalopathic process. Clinical corre lation required for full interpretation of these findings. ICD10 Code/Diagnosis: AMS * XR Abdomen 1 Vw Portable (03/30/2019 7:04 PM CDT) Specimen Narrative Performed At EXAMINATION: XR ABDOMEN 1 VW PORTABLE [facility] CLINICAL HISTORY: kidney stone COMPARISON: October 25, 2018. IMPRESSION: Interval placement of double pigtail le ft nephroureteral stent. No evidence of renal or ureteral calculus. No free int ra-abdominal air. Nonobstructive nonspecific bowel gas pa ttern. Redemonstration of multiple radiopaque bodies overlying the midline upper abdomen. Trace right pleural effusion. Osseous structures are unchan ged. [id number] Dictated and approved by radiology resi dent/fellow: Abdirizak Fox M.D. I, Christopher Munoz Jr., M.D., personally r eviewed the images and resident's/fellow's findings and agree with the final report. Procedure Note Interface, Radiology Results Incoming - 03/30/2019 10:22 PM CDT EXAMINATION: XR ABDOMEN 1 VW PORTABLE CLINICAL HISTORY: kidney stone COMPARISON: October 25, 2018. IMPRESSION: Interval placement of double pigtail left nephroureteral stent. No evidence of renal or ureteral calculus. No free intra-abdominal air. Nonobstructive nonspecific bowel gas pattern. Redemonstration of multiple radiopaque bodies overlying the midline upper abdomen. Trace right pleural effusion. Osseous structures are unchanged. [facility]-[id number] Dictated and approved by radiology director/fellow: Abdirizak Fox M.D. I, Christopher Munoz Jr., M.D., personally reviewed the images and resident's/fellow's findings and agree with the final report. Performing Organization Address City/State/Zipcode Ph one Number [facility] [address] [place] [address] * Echocardiogram complete w contrast and 3D if needed (03/30/2019 4:32 PM CDT) Velocity Ratio 1.00 m/s [facility] (V1/V2) IVS,d 1.27 cm [facility] EF 54.97 % [facility] Ascending aorta 2.94 cm [facility] LVPWD,d 1.27 cm [facility] AoV Mean PG 1.80 mmHg [facility] AV LVOT peak 3.35 mmHg [facility] gradient MV mean 0.99 mmHg [facility] gradient MV valve area p 4.03 cm2 [facility] 1/2 method PV Pk Grad 2.29 mmHg [facility] E/A ratio 0.69 [facility] E wave 188.03 msec [facility] decelartion time IVRT 85.63 msec [facility] LVOT Diam,S 1.99 cm [facility] LVOT area 3.11 cm2 [facility] LVOT Vmax 0.92 m/s [facility] LVOT VTI 0.17 m [facility] AoV Peak PG 3.36 mmHg [facility] MV Peak E Robert 0.53 m/s [facility] MV stenosis 54.53 ms [facility] pressure 1/2 time MV Peak A Robert 0.77 m/s [facility] BSA 1.87 m2 [facility] Ao Root 3.11 cm [facility] Diameter AoV Area, Vmax 3.12 cm2 [facility] AoV Area, VTI 3.09 cm2 [facility] AoV Vmax 0.92 m/s [facility] BSA Rosa 1.91 m2 [facility] BSA Haycock 1.90 m2 [facility] IVS/LVPW,2D 1.00 [facility] Left Atrium 3.26 cm [facility] Dimension Anterior LV,d 4.53 cm [facility] LV,s 3.24 cm [facility] PV VMAX 0.76 m/s [facility] BMI 26.00 kg/m2 [facility] MV E A ratio 0.69 [facility] AoV area i VTI 1.65 cm2/m2 [facility] BSA Florence MR peak grad 2.16 mmHg [facility] Ao Root 3.11 cm [facility] Diameter LV SYS VOL 42.31 ml [facility] LV HANDY VOL 93.96 ml [facility] LA area s A4C 16.26 cm2 [facility] LA Vol MOD A4C 36.18 ml [facility] LV SI Teich 2D 27.65 ml/m2 [facility] LV SV Teich 2D 51.65 ml [facility] LV Vol s Teich 42.31 ml [facility] PSAX LVOT CI 2.37 l/min/m2 [facility] LVOT CO 4.43 l/min [facility] LVOT HR for 81.16 bpm [facility] LVOT CO LVOT SI 29.22 ml/m2 [facility] MV Vmax 0.73 m [facility] MV VTI Tips 0.14 m [facility] AoV Vmn 0.65 [facility] IVS s 2D 1.46 [facility] LV FS Cube 2D 28.43 [facility] LV FS Teich 2D 28.43 [facility] AoV VTI 0.18 m [facility] LV EF,2D 63.34 % [facility] MV AE ratio 1.46 [facility] LVOT Vmn 0.57 [facility] Pt Size 170.18 [facility] Pt Wt 75.30 [facility] Aov area Vmn 2.77 cm2 [facility] LA A_P score P 0.87 [facility] LVOT mean grad 1.58 mmHg [facility] MAX Pred HR 185.84 [facility] 85 of MPHR 157.96 [facility] AoV area I VMN 1.48 cm2/m2 [facility] bsa Calc MPHR 185.84 bpm [facility] IVS pct thck 14.65 % [facility] PLAX LV SI Cube 2D 31.54 ml/m2 [facility] LV SV Cube 2D 58.93 ml [facility] LV vol d cube 93.03 ml [facility] 2D LV vol s cube 34.11 ml [facility] 2D LVPW pct thck 18.36 % [facility] PLAX LVPW s PLAX 1.51 cm [facility] MV Decel slope 2.83 m/s2 [facility] Pred Exer Dur 12.67 [facility] R1 Pred METS R1 12.88 [facility] Specimen Narrative Performed At [facility] The left ventricular chamber size is normal. Left ventricular systolic function is moderately impaired. There is mild left ventricular concentric hypertrophy. LVEF 40% Apical segments a nd cavity is not clearly visualized but appears akinetic. LVEF reprtedely normal a year ago- n ot able to view the image Performing Organization Address City/State/Zipcode Ph one Number [facility] [address] [facility] [place] [address], [place] * Echocardiogram complete w contrast and 3D if needed (03/29/2019 5:12 PM CDT) Ao Root 3.18 cm [facility] Diameter BSA Rosa 1.95 m2 [facility] BSA 1.97 m2 [facility] IVS,d 0.98 cm [facility] IVS/LVPW,2D 0.86 [facility] Left Atrium 3.82 cm [facility] Dimension Anterior LV,d 4.83 cm [facility] LV EF,2D 47.34 % [facility] LV,s 3.90 cm [facility] LVOT area 3.87 cm2 [facility] LVOT Diam,S 2.22 cm [facility] LVPWD,d 1.14 cm [facility] BMI 22.51 kg/m2 [facility] Ascending aorta 2.76 cm [facility] Ao Root 3.18 cm [facility] Diameter LV SYS VOL 65.98 ml [facility] LV HANDY VOL 109.19 ml [facility] LV SI Teich 2D 21.95 ml/m2 [facility] LV SV Teich 2D 43.21 ml [facility] LV Vol s Teich 65.98 ml [facility] PSAX BSA Haycock 1.95 m2 [facility] IVS s 2D 1.22 [facility] LV FS Teich 2D 19.25 [facility] LV FS Cube 2D 19.25 [facility] Pt Size 182.88 [facility] Pt Wt 75.30 [facility] LA A_P score P 1.45 [facility] MAX Pred HR 185.84 [facility] 85 of MPHR 157.97 [facility] Calc MPHR 185.84 bpm [facility] IVS pct thck 24.20 % [facility] PLAX LV SI Cube 2D 27.13 ml/m2 [facility] LV SV Cube 2D 53.40 ml [facility] LV vol d cube 112.80 ml [facility] 2D LV vol s cube 59.40 ml [facility] 2D LVPW pct thck 4.41 % [facility] PLAX LVPW s PLAX 1.19 cm [facility] Pred Exer Dur 12.67 [facility] R1 Pred METS R1 12.88 [facility] EF 39.57 % [facility] Specimen Narrative Performed At [facility] Incomplete study due to uncooperativ e patient per impregnator's comments. LVEF appears to be depressed and not ed to be normal on study performed in 07/[address] [facility] Ph one Number [facility] [address] [place] [address], [place] * CT Head Wo Contrast (03/29/2019 2:11 PM CDT) Specimen Narrative Performed At EXAMINATION: CT HEAD WO CONTRAST [facility] CLINICAL HISTORY: ams COMPARISON: CT head 10/29/2018 TECHNIQUE: Noncontrast head CT performe d using radiation dose reduction techniques. Technical factors are yaima luated and adjusted to ensure appropriate moderation of exposure. Automated dos e management technology is applied to adjust radiation exposure while achieving a diagnostic quality im age. FINDINGS: Stable exam of the intracranial content s compared with 10/29/2018. No evidence of acute intracranial hemor rhage, mass, mass effect, midline shift, or acute infarct. Ventricles and sulci are normal in appe arance for age. Basal cisterns are clear. Calvarium is intact. Orbits are normal in appearance. No sig nificant sinus inflammatory changes. Mastoid air cells are clear. IMPRESSION: 1. No CT evidence of acute intracranial abnormality. [id number] Procedure Note Interface, Radiology Results Incoming - 03/29/2019 2:17 PM CDT EXAMINATION: CT HEAD WO CONTRAST CLINICAL HISTORY: ams COMPARISON: CT head 10/29/2018 TECHNIQUE: Noncontrast head CT performed using radiation dose reduction techniques. Technical factors are evaluated and adjusted to ensure appropriate moderation of exposure. Automated dose management technology is applied to adjust radiation exposure while achieving a diagnostic quality image. FINDINGS: Stable exam of the intracranial contents compared with 10/29/2018. No evidence of acute intracranial hemorrhage, mass, mass effect, midline shift, or acute infarct. Ventricles and sulci are normal in appearance for age. Basal cisterns are clear. Calvarium is intact. Orbits are normal in appearance. No significant sinus inflammatory changes. Mastoid air cells are clear. IMPRESSION: 1. No CT evidence of acute intracranial abnormality. [id number] Performing Organization Address [facility] one Number HM [facility] [address] [place] [address] * ECG ED Preliminary Interpretation - Not an Order (03/29/2019 1:47 PM CDT) Narrative Performed At Francisco Arboleda MD 03/29/2019 4:10 PM ECG ED Preliminary Interpretation - Not an Order Performed by: Francisco Arboleda MD Authorized by: Francisco Arboleda MD ECG reviewed by ED Physician in the abs ence of a information technology assistant: yes Interpretation: Interpretation: abnormal Rate: ECG rate: 65 ECG rate assessment: normal Rhythm: Rhythm: sinus rhythm QRS: QRS axis: Left T waves: T waves: inverted Inverted: III * Ammonia level (03/29/2019 1:12 PM CDT) Ammonia 30 16 - 60 umol/L [facility] Specimen Plasma specimen Performing Organization Address [facility] Ph one Number [facility] [place] [address] [place] [address] [place] [address] PATHOLOGY AND GENOMIC MEDICINE [address] * Acetaminophen level (03/29/2019 1:12 PM CDT) Acetaminophen <15.3 10.0 - 30.0 ug/mL [place] level Comment: ORIENTAL ORTHODOX Therapeutic HEBRON 10-30 ug/mL [facility] Possible Toxicity 150-200 ug/mL Probable Toxicity >200 ug/mL Specimen Blood Performing Organization Address [facility] Ph one Number [facility] DEPARTMENT OF [address] [facility] [place] [address] PATHOLOGY AND GENOMIC MEDICINE [address] * Salicylate level (03/29/2019 1:12 PM CDT) Salicylate <0.4 (L) 3.0 - 30.0 mg/dL [place] Comment: ORIENTAL ORTHODOX Therapeutic Range: HEBRON 5 - 30 mg/dL HOSPITAL Specimen Blood Performing Organization Address City/[facility] Ph one Number [facility] DEPARTMENT OF [address] [facility] [place] [address] PATHOLOGY AND GENOMIC MEDICINE [address] [place] [address] HOSPITAL after 03/18/2019 Additional Health Concerns Resolved Time Infection Noted Time 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 Acinetobacter species (C ) 09/24/2018 1:[address] ESBL (C ) 10/20/2019 2:49 PM CDT Insurance Type Payer Benefit Subscriber ID Effective Phone Address Plan / Dates Group Medicare MEDICARE MEDICARE xxxxxxxxxxx [id number] EB, PART A AND resent [place] Advance Directives For more information, please contact: [phone] 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 Operator Explanation Type Date Recorded Advance Directives, 12/31/2015 5:08 PM Living Will and Medical Power of Director Of Media Advance Directives, 02/10/2016 1:18 PM Living Will and Medical Power of Director Of Media Advance Directives, 03/04/2016 8:23 PM Living Will and Medical Power of Director Of Media Advance Directives, 12/01/2017 12:28 AM Living Will and Medical Power of Director Of Media Advance Directives, 06/15/2018 3:53 PM Living Will and Medical Power of Director Of Media Advance Directives, 10/25/2018 1:08 PM Living Will and Medical Power of Director Of Media Advance Directives, 10/27/2018 7:52 PM Living Will and Medical Power of Director Of Media Advance Directives, 08/06/2019 4:30 PM Living Will and Medical Power of Director Of Media Advance Directives, 10/15/2019 10:01 PM Living Will and Medical Power of Director Of Media Advance Directives, 10/22/2019 8:43 PM Living Will and Medical Power of Director Of Media Advance Directives, 12/20/2019 6:46 PM Living Will and Medical Power of Director Of Media Advance Directives, 01/10/2020 9:55 PM Living Will and Medical Power of Director Of Media Advance Directives, 01/10/2020 9:58 PM Living Will and Medical Power of Director Of Media Date Inactivated Comments Code Status Date Activated 10/22/2019 8:14 PM Full Code 10/16/2019 3:20 PM Code Status decision reached by: Patient 03/04/2018 7:02 PM Full Code 03/03/2018 3:52 PM Code Status decision reached by: Patient 12/09/2017 12:11 AM Full Code 12/01/2017 12:51 AM Code Status decision reached by: Patient Code Status decision reached by: Patient
--- OUTSIDE RECORDS SUMMARY | 2020-03-18 10:08 | XMS REPORT | Clinical Summary ---
Author Author [facility] [employer] Organization [facility] [employer] [facility] Address Unknown Phone Unavailable Care Team Providers Care Photography Sales Associate Name Role Phone Trent Barrios MD PCP Allergies No Known Allergies Medications End Date Status Medication Sig Dispensed Refills Start Date Active methadone (DOLOPHINE) 10 Take 20 mg by 0 MG tablet mouth 2 (two) times daily. Active ALPRAZolam (XANAX) 2 MG Take 2 mg by 0 tablet mouth 2 (two) times daily. Active pregabalin (LYRICA) 100 Take 100 mg 0 MG capsule by mouth 3 (three) times daily. Active amitriptyline (ELAVIL) Take 100 mg 0 100 MG tablet by mouth nightly. Active Problems Problem Noted Date Cellulitis of leg, right 07/24/2016 Acute cystitis without hematuria 07/22/2016 Social History Date Tobacco Use Types Packs/Day Years Used Current Some Day Smoker Cigarettes 0.5 19 Smokeless Tobacco: Snuff Current User Tobacco Cessation: Ready to Quit: Yes Alcohol Use Drinks/Week oz/Week Comments No Sex Assigned at Date Recorded Not on file Industry Job Start Date Occupation Not on file Not on file Not on file Travel End Travel History Travel Start No recent travel history available. Last Filed Vital Signs Not on file Plan of Treatment Not on file Results Not on fileafter 03/18/2019 Insurance Payer Benefit Subscriber ID Type Phone Address Plan / Group MEDICARE MEDICARE A xxxxxxxxxx Medicare B MEDICAID MEDICAID xxxxxxxxx Medicaid OF [place] [id number] Advance Directives For more information, please contact: [facility] [address] [place] [id number] Date Inactivated Comments Code Status Date Activated 07/25/2016 3:35 PM Full Code 07/22/2016 9:08 PM This code status was determined by: Patient
--- OUTSIDE RECORDS SUMMARY | 2020-03-18 10:16 | XMS REPORT | Continuity of Care Document ---
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 12/03/19 21:00:00 CDT, Duration: 30 day, Stop date: 01/01/20 21:00:00 CDT, 0 No Longer Active 12/04/2019 [facility] Lyrica Notes: Same as Lyrica No Longer Active 12/04/2019 [facility] Zinc Sulfate Notes: (Zinc sulf ate capsule) - 220 mg Zinc sulfate = 50 mg elemental zinc Same as Zinc Sulfate No Longer Active 12/03/2019 [facility] Ascorbic Acid Notes: (Same as: Vitamin C) No Longer Active 12/03/2019 [facility] multivitamin Notes: (Same as:O ne Tab Daily, Tab-A-Mima + Beta Carotene) Give with food. No Longer Active 12/03/2019 [facility] heparin Notes: porcine heparin No Longer Active 12/03/2019 [facility] Coreg Notes: Give with food. ( Same As: Coreg) No Longer Active 12/03/2019 [facility] Alprazolam 1 MG Oral Tablet [Xanax] Notes: With food or milk (Same as: Xanax) No Longe r Active 12/03/2019 [facility] oxybutynin Notes: Same as: Dit ropan) No Longer Active 12/03/2019 [facility] Sodium Bicarbonate Notes: "Dis solve tablet in a glass of water prior to oral administration. STOMACH WARNING: To avoid serious injury, do not take until tablet is completely dissolved. It is very important not to t kayla this product when overly full from food or drink." No Longer Active 12/03/2019 [facility] meropenem Notes: Same as Barak jamil MEDICATION WASTE Product Size: 500 mg Product Wasted: ___ mg No Longer Active 12/03/2019 [facility] Hydromorphone Notes: (Same as: Dilaudid) No Longer Active 12/03/2019 [facility] cyclobenzaprine Notes: (Same A s: Flexeril) No Longer Active 12/03/2019 [facility] NS 1,000 mL 1,000 mL, Rate: 10 0 ml/hr, Infuse over: 10 hr, Route: IV, Dosing Weight 79.545 kg, Total Volume: 1,000, Start date: 12/02/19 23:53:00 CDT, Duration: 1 doses or times, Stop date: 12/03/19 9:52:00 CDT, 2.02, m2, 0 No Longer Active 12/03/2019 [facility] Dilaudid Notes: (Same as: Dila udid) No Longer Active 12/03/2019 [facility] cyclobenzaprine Notes: Same as Flexeril No Longer Active 12/03/2019 [facility] Dextrose 50% Syringe (D50W) 12 .5 gm, 25 mL, Route: IVP, Drug Form: INJ, Dosing Weight 79.545, kg, PRN, PRN Blood Glucose Results, Start date: 12/02/19 23:45:00 CDT, Duration: 30 day, Stop date: 01/01/20 23:44:00 CDT, 0 No Longer Active 12/03/2019 [facility] Glucagon 1 mg, Route: IM, Drug form: PDR/INJ, PRN, Dosing Weight 79.545, kg, PRN Blood Glucose Results, Start date: 12/02/19 23:45:00 CDT, Duration: 30 day, Stop date: 01/01/20 23:44:00 CDT, 0 No Longer Active 12/03/2019 [facility] Ondansetron Notes: (Same as: Kory davis) MEDICATION WASTE Product Size: 4 mg Product Wasted: ___ mg No Longer Active 12/03/2019 [facility] Acetaminophen Notes: Do not ex ceed 4 gm/day. (Same as: Tylenol) No Longer Active 12/03/2019 [facility] meropenem Notes: (Same as: Sandy rem) . MEDICATION WASTE Product Size: 1000 mg Product Wasted: ___ mg No Longer Active 12/03/2019 [facility] Vancomycin 2001 mg: infuse ov er 2.5 hours For adult patients only: Round to nearest 250 mg per Medical Staff approval MEDICATION WASTE Product Size: 1000 mg Product Wasted: ___ mg No Longer Active 12/03/2019 [facility] Ceftriaxone Notes: (Same As: Malathi jara). Use with 100 mL NS and infuse over 30 min MEDICATION WASTE Product Size: 1000 mg Product Wasted: ___ mg Inactive 12/03/2019 [facility] Dilaudid 2 mg, Route: PO, ONCE , Dosing Weight 79.545, kg, Start date: 12/02/19 22:08:00 CDT, Stop date: 12/02/19 22:08:00 CDT Inactive 12/03/2019 [facility] NS (Bolus) IV 500 mL, 500 ml/h r, Infuse Over: 1 hr, Route: IV, 500, Drug form: INJ, ONCE, Priority: STAT, Dosing Weight 84.091 kg, Start date: 11/17/19 18:07:00 CDT, Stop date: 11/17/19 18:07:00 CDT, 0 Inactive 11/17/2019 [facility] cyclobenzaprine 10 mg oral tablet 10 mg = 1 tab, PO, TID, PRN Spasm, 0 Refill(s) Active 11/17/2019 [facility] citalopram 10 mg oral tablet 1 0 mg = 1 tab, PO, Bedtime, 0 Refill(s) Active 11/17/2019 [facility] oxybutynin 5 mg oral tablet 5 mg = 1 tab, PO, TID, 0 Refill(s) Active 11/17/2019 [facility] hydromorphone 2 mg oral tablet 2 mg = 1 tab, PO, Q4H, PRN Pain Score 4-10, 0 Refill(s) Active 11/17/2019 [facility] enoxaparin 40 mg/0.4 mL subcutaneous solution 40 mg = 0.4 mL, SUB-Q, [id number], 0 Refill(s) Active 11/17/2019 [facility] Rocephin 1 g injection 2 gm, I V, Daily, X 56 day, # 56 ea, 0 Refill(s), other Active 11/17/2019 [facility] Cathflo Activase 2 mg injection Notes: "Syringe for catheter clearance or interventional radiology use. Reconstitute each vial of Cathflo Activase with 2.2 ml Sterile Water resulting in a 1 mg/ml solution. (Same as: Activase) MEDICATION WASTE Product Size: 2 mg Product Wasted: ___ mg Inactive 11/16/2019 [facility] Rocephin + sterile water 20 mL Notes: (Same As: Rocephin). No Longer Active 11/16/2019 [facility] Ditropan Notes: Same as: Ditro moffett) No Longer Active 11/16/2019 [facility] vancomycin + Sodium Chloride 0.9% IV 250 mL 2000 mg: infuse over 2.5 hours For adult patients only: Round to nearest 250 mg per Medical Staff approval MEDICATION WASTE Product Size: 1000 mg Product Wasted: ___ mg No Longer Active 11/16/2019 [facility] Vancomycin 2001 mg: infuse ov er 2.5 hours For adult patients only: Round to nearest 250 mg per Medical Staff approval MEDICATION WASTE Product Size: 1000 mg Product Wasted: ___ mg Inactive 11/13/2019 [facility] janeo korina (random) shani quintero (random), reminder, Drug form: MISC, Route: MISC, ONCE, 11/13/19 17:00:00 CDT, Stop date: 11/13/19 17:00:00 CDT, 0 No Longer Active 11/13/2019 [facility] Celexa 10 mg, 1 tab, Route: PO , Drug form: TAB, Bedtime, Dosing Weight 84.091, kg, Start date: 11/11/19 21:00:00 CDT, Duration: 30 day, Stop date: 12/10/19 21:00:00 CDT, 0 No Longer Active 11/12/2019 [facility] Vancomycin 2000 mg: infuse ov er 2.5 hours For adult patients only: Round to nearest 250 mg per Medical Staff approval MEDICATION WASTE Product Size: 1000 mg Product Wasted: ___ mg Inactive 11/11/2019 [facility] please draw and send vanc level to lab please draw and send vanc level to lab, reminder, Drug form: MISC, Route: MISC, ONCE, Priority: NOW, 11/11/19 16:05:00 CDT, Stop date: 11/11/19 16:05:00 CDT, 0 Inactive 11/11/2019 [facility] Dilaudid Notes: (Same as: Dila udid) No Longer Active 11/11/2019 [facility] Ferrlecit Notes: (sodium amanda c gluconate complex (elemental iron) 62.5 mg/5 ml INJ) "Limited stability. Use immediately after admixture" (Same as: Ferrlecit) MEDICATION WASTE Product Size: 62.5 mg Product Wasted: ___ mg No Longer Active 11/10/2019 [facility] rocuronium (ANES) Route: IV, D rug form: INJ, ONCE, Stop date: 11/10/19 15:50:00 CDT Inactive 11/10/2019 [facility] ondansetron (ANES) Route: IV, Drug form: INJ, ONCE, Stop date: 11/10/19 15:50:00 CDT Inactive 11/10/2019 [facility] dexamethasone (ANES) Route: IV , Drug form: INJ, ONCE, Stop date: 11/10/19 15:50:00 CDT Inactive 11/10/2019 [facility] metoclopramide (ANES) Route: I V, Drug form: INJ, ONCE, Stop date: 11/10/19 15:50:00 CDT Inactive 11/10/2019 [facility] phenylephrine (ANES) Route: IV , Drug form: INJ, ONCE, Stop date: 11/10/19 15:50:00 CDT Inactive 11/10/2019 [facility] sugammadex (ANES) Route: IV, D rug form: SOLN, ONCE, Stop date: 11/10/19 15:50:00 CDT Inactive 11/10/2019 [facility] lidocaine (ANES) Route: IV, Dr ug form: INJ, ONCE, Stop date: 11/10/19 15:49:00 CDT Inactive 11/10/2019 [facility] fentaNYL (ANES) Route: IV, Arden g form: INJ, ONCE, Stop date: 11/10/19 15:48:00 CDT Inactive 11/10/2019 [facility] propofol (ANES) Route: IV, Arden g form: INJ, ONCE, Stop date: 11/10/19 15:48:00 CDT Inactive 11/10/2019 [facility] midazolam (ANES) Route: IV, Dr ug form: SOLN, ONCE, Stop date: 11/10/19 15:37:00 CDT Inactive 11/10/2019 [facility] Sodium Chloride 0.9% IV (ANES) 1000 mL Route: IV, Total Volume: 1,000, Start date: 11/10/19 15:07:00 CDT, Stop date: 11/10/19 16:07:00 CDT Inactive 11/10/2019 [facility] Flexeril Notes: (Same As: Flex eril) No Longer Active 11/10/2019 [facility] NS 1,000 mL 1,000 mL, Rate: 10 0 ml/hr, Infuse over: 10 hr, Route: IV, Dosing Weight 84.091 kg, Total Volume: 1,000, Start date: 11/09/19 14:48:00 CDT, Duration: 30 day, Stop date: 12/09/19 14:47:00 CDT, 2.08, m2, 0 No Longer Active 11/09/2019 [facility] Vancomycin Pharmacy Dosing Protocol - [facility] Vancomycin Pharmacy Dosing Protocol - AMY, Reminder, Drug form: MISC, Route: ROMULO LEÓN, 11/09/19 14:00:00 CDT, Stop date: 12/15/19 23:59:00 CDT, 0 No Longer Active 11/09/2019 [facility] vancomycin + Sodium Chloride 0.9% IV 250 mL 2001 mg: infuse over 2.5 hours For adult patients only: Round to nearest 250 mg per Medical Staff approval MEDICATION WASTE Product Size: 1000 mg Product Wasted: ___ mg Inactive 11/09/2019 [facility] Vancomycin Pharmacy Dosing Protocol - [facility] Vancomycin Pharmacy Dosing Protocol - AMY, Reminder, Drug form: MISC, Route: ROMULO LEÓN, 11/09/19 12:00:00 CDT, Stop date: 12/15/19 23:59:00 CDT, 0 Inactive 11/09/2019 [facility] Please hold noon vanc on 11/08 until trough is collected . Please hold noon vanc on 11/08 until trough is collected., Reminder, Drug form: MISC, Route: MISC, ONCE, 11/09/19 11:08:00 CDT, Stop date: 11/09/19 11:08:00 CDT, 0 Inactive 11/09/2019 [facility] NS 1,000 mL 1,000 mL, Rate: 75 ml/hr, Infuse over: 13.3 hr, Route: IV, Dosing Weight 84.091 kg, Total Volume: 1,000, Start date: 11/08/19 19:54:00 CDT, Duration: 30 day, Stop date: 12/08/19 19:53:00 CDT, 2.08, m2, 0 No Longer Active 11/09/2019 [facility] hydromorphone 2 mg oral tablet 2 mg = 1 tab, PO, Q6H, PRN Pain Score 4-10, # 8 tab, 0 Refill(s), [id number] No Longer Active 11/08/2019 [facility] Dilaudid Notes: (Same as: Dila udid) No Longer Active 11/08/2019 [facility] vanc trough 2300 on 11/06 vanc t rough 2300 on 11/06, don't give dose before lab is drawn, Drug form: MISC, Route: MISC, ONCE, 11/07/19 22:30:00 CDT, Stop date: 11/07/19 22:30:00 CDT, 0 Inactive 11/08/2019 [facility] vancomycin + Sodium Chloride 0.9% IV 250 mL 2001 mg: infuse over 2.5 hours For adult patients only: Round to nearest 250 mg per Medical Staff approval MEDICATION WASTE Product Size: 1000 mg Product Wasted: ___ mg No Longer Active 11/07/2019 [facility] propofol (ANES) Route: IV, Arden g form: INJ, ONCE, Stop date: 11/05/19 16:18:00 CDT Inactive 11/05/2019 [facility] glycopyrrolate (ANES) Route: I V, Drug form: INJ, ONCE, Stop date: 11/05/19 16:18:00 CDT Inactive 11/05/2019 [facility] neostigmine (ANES) Route: IV, Drug form: INJ, ONCE, Stop date: 11/05/19 16:18:00 CDT Inactive 11/05/2019 [facility] sugammadex (ANES) Route: IV, D rug form: SOLN, ONCE, Stop date: 11/05/19 16:18:00 CDT Inactive 11/05/2019 [facility] Zofran Notes: (Same as: Fantamayi ) MEDICATION WASTE Product Size: 4 mg Product Wasted: ___ mg Inactive 11/05/2019 [facility] norepinephrine (ANES) Route: I V, Drug form: INJ, ONCE, Stop date: 11/05/19 15:55:00 CDT Inactive 11/05/2019 [facility] ondansetron (ANES) Route: IV, Drug form: INJ, ONCE, Stop date: 11/05/19 15:55:00 CDT Inactive 11/05/2019 [facility] fentaNYL (ANES) Route: IV, Arden g form: INJ, ONCE, Stop date: 11/05/19 15:50:00 CDT Inactive 11/05/2019 [facility] phenylephrine (ANES) Route: IV , Drug form: INJ, ONCE, Stop date: 11/05/19 15:50:00 CDT Inactive 11/05/2019 [facility] midazolam (ANES) Route: IV, Dr ug form: SOLN, ONCE, Stop date: 11/05/19 15:40:00 CDT Inactive 11/05/2019 [facility] lidocaine (ANES) Route: IV, Dr ug form: INJ, ONCE, Stop date: 11/05/19 15:40:00 CDT Inactive 11/05/2019 [facility] propofol (ANES) Route: IV, Arden g form: INJ, ONCE, Stop date: 11/05/19 15:40:00 CDT Inactive 11/05/2019 [facility] rocuronium (ANES) Route: IV, D rug form: INJ, ONCE, Stop date: 11/05/19 15:40:00 CDT Inactive 11/05/2019 [facility] Lactated Ringers Injection IV (ANES) 1000 mL Route: IV, Total Volume: 1,000, Start date: 11/05/19 14:54:00 CDT, Stop date: 11/05/19 15:54:00 CDT Inactive 11/05/2019 [facility] Calcium Chloride 0.0014 MEQ/ML / Potassi um Chloride 0.004 MEQ/ML / Sodium Chloride 0.103 MEQ/ML / Sodium Lactate 0.028 MEQ/ML Injectable Solution 1,000 mL, Rate: 75 ml/hr, Infuse over: 1 3.3 hr, Route: IV, Dosing Weight 84.091 kg, Total Volume: 1,000, Start date: 11/05/19 13:46:00 CDT, Duration: 1 day, Stop date: 11/06/19 13:45:00 CDT, 2.08, m2, 0 Inactive 11/05/2019 [facility] Protonix Notes: Tablet should not be chewed or crushed. (Same as: Protonix) No Longer Active 11/05/2019 [facility] Omnipaque 300 injectable solution Notes: (Same as:Omnipaque 300). WASTE: F/P - Black; E - Municipal Trash Bin No Longer Active 11/05/2019 [facility] vancomycin + Sodium Chloride 0.9% IV 250 mL 2001 mg: infuse over 2.5 hours For adult patients only: Round to nearest 250 mg per Medical Staff approval MEDICATION WASTE Product Size: 1000 mg Product Wasted: ___ mg Inactive 11/05/2019 [facility] vancomycin + Sodium Chloride 0.9% IV 250 mL 2001 mg: infuse over 2.5 hours For adult patients only: Round to nearest 250 mg per Medical Staff approval MEDICATION WASTE Product Size: 1000 mg Product Wasted: ___ mg Inactive 11/05/2019 [facility] Lyrica Notes: Same as Lyrica No Longer Active 11/05/2019 [facility] Vancomycin 1,000 mg, Route: IV PB, Drug form: INJ, [id number], Dosing Weight 84.091, kg, Start date: 11/04/19 21:00:00 CDT, Duration: 14 day, Stop date: 11/18/19 9:00:00 CDT, ABX Indication: Skin/Soft Tissue Infect ion Inactive 11/05/2019 [facility] cefepime Notes: (Same As: Franco guaman) MEDICATION WASTE Product Size: 1000 mg Product Wasted: ___ mg No Longer Active 11/05/2019 [facility] Lovenox Notes: (Same as: Loven ox) No Longer Active 11/05/2019 [facility] carvedilol Notes: Give with fo od. (Same As: Coreg) No Longer Active 11/04/2019 [facility] Alprazolam 1 MG Oral Tablet [Xanax] Notes: With food or milk (Same as: Xanax) No Longe r Active 11/04/2019 [facility] Oxycodone Hydrochloride 5 MG Oral Tablet Notes: (Same as: Roxicodone) No Longer Active 11/04/2019 [facility] oxybutynin Notes: Same as: Dit ropan) No Longer Active 11/04/2019 [facility] remove patch Notes: Remove pat ch 12 hours after application each day. No Longe r Active 11/04/2019 [facility] carvedilol 12.5 mg, PO, BID, 0 Refill(s) Active 11/04/2019 [facility] oxybutynin 5 mg oral tablet 5 mg = 1 tab, PO, TID, PRN Other-See Comments, # 30 tab, 0 Refill(s) Inactive 11/04/2019 [facility] Alprazolam 1 MG Oral Tablet [Xanax] 1 mg = 1 tab, PO, BID, 0 Refill(s) Active 11/04/2019 [facility] pregabalin 100 MG Oral Capsule [Lyrica] 100 mg = 1 cap, PO, Bedtime, 0 Refill(s) Activ e 11/04/2019 [facility] Nurse please update Height, Weight, Gwyn rgy info in [facility] Nurse please update Height, Weight, Gwyn rgy info in [facility], reminder, Drug form: MISC, Route: MISC, Q1H, 11/04/19 14:00:00 CDT, Duration: 4 hr, Stop date: 11/04/19 17:00:00 CDT, 0 Inactive 11/04/2019 [facility] Dextrose 50% Syringe (D50W) 12 .5 gm, 25 mL, Route: IVP, Drug Form: INJ, Dosing Weight 79.545, kg, PRN, PRN Blood Glucose Results, Start date: 11/04/19 12:13:00 CDT, Duration: 30 day, Stop date: 12/04/19 12:12:00 CDT, 0 No Longer Active 11/04/2019 [facility] Glucagon 1 mg, Route: IM, Drug form: PDR/INJ, PRN, Dosing Weight 79.545, kg, PRN Blood Glucose Results, Start date: 11/04/19 12:13:00 CDT, Duration: 30 day, Stop date: 12/04/19 12:12:00 CDT, 0 No Longer Active 11/04/2019 [facility] Docusate Notes: (Same as: Cola ce) (Do Not Crush) No Longer Active 11/04/2019 [facility] POLYETHYLENE GLYCOL 3350 Notes : Dissolve in 8 oz of water or juice. (Same as: Miralax) No Longer Active 11/04/2019 [facility] Bisacodyl Notes: (Same As: Dul colax, Bisco-Lax) No Longer Active 11/04/2019 [facility] Ondansetron Notes: (Same as: Kory davis) MEDICATION WASTE Product Size: 4 mg Product Wasted: ___ mg No Longer Active 11/04/2019 [facility] Diphenhydramine 25 mg, 1 tab, Route: PO, Drug form: TAB, Q6H, Dosing Weight 79.545, kg, PRN as needed for allergy symptoms, Start date: 11/04/19 12:13:00 CDT, Duration: 30 day, Stop date: 12/04/19 12:12:00 CDT, 0 No Longer Active 11/04/2019 [facility] Melatonin Notes: (Same as: Leigh Ann atonin) No Longer Active 11/04/2019 [facility] Trazodone Notes: (Same As: Edson yrel) No Longer Active 11/04/2019 [facility] Acetaminophen Notes: Do not ex ceed 4 gm/day. (Same as: Tylenol) No Longer Active 11/04/2019 [facility] Seroquel Notes: (Same as: SERO quel) No Longer Active 11/04/2019 [facility] Hydralazine Notes: (Same as: A presoline) Push over 5 minutes No Longer Active 11/04/2019 [facility] Nicotine Notes: (Same as: Roney montague) "Remove old patch before application of new patch" WASTE: F/P - P Waste Black; E - P Waste Black No Longer Active 11/04/2019 [facility] Tessalon Perles 100 mg, 1 cap, Route: PO, Drug form: CAP, TID, Dosing Weight 79.545, kg, PRN Cough, Start date: 11/04/19 12:13:00 CDT, Duration: 30 day, Stop date: 12/04/19 12:12:00 CDT, 0 No Longer Active 11/04/2019 [facility] Mucinex 600 mg, 1 tab, Route: PO, Drug form: ERTAB, Q12H, Dosing Weight 79.545, kg, PRN Congestion, Start date: 11/04/19 12:13:00 CDT, Duration: 30 day, Stop date: 12/04/19 12:12:00 CDT, 0 No Longer Active 11/04/2019 [facility] Simethicone Notes: (Same as: Omero ylicon) No Longer Active 11/04/2019 [facility] Maalox Advanced Regular Strength SUSP Notes: (aluminum hydroxide-magnesium hyd-simethicone [phone]/5ml 30 ml ud OSLITARIO) No Longer Active 11/04/2019 [facility] Albuterol 0.833 MG/ML / Ipratropium Brom laila 0.167 MG/ML Inhalant Solution [DuoNeb] Notes: (Same as: Duoneb) No Longer Active 11/04/2019 [facility] phenol Notes: Chloraseptic Spr ay (Same as: Chloraseptic, Sore Throat [place]) WASTE: F/P - Black; E - Municipal Trash Bin No Longer Active 11/04/2019 [facility] Artificial Tears 1 drp, Route: Each Affected Eye, QID, Drug form: SOLN, PRN Dry Eyes, Start date: 11/04/19 12:13:00 CDT, Duration: 30 day, Stop date: 12/04/19 12:12:00 CDT, 0 No Longer Active 11/04/2019 [facility] Lidocaine 0.05 MG/MG Transdermal Patch 1 patch, Route: TOP, Daily, Drug form: FILM, PRN Pain Score 1-3, Start date: 11/04/19 12:13:00 CDT, Duration: 30 day, Stop date: 12/04/19 12:12:00 CDT, 0 No Longer Active 11/04/2019 [facility] Lactulose 667 MG/ML Oral Solution Notes: (Same as:Chronulac) No Longer Active 11/04/2019 [facility] Benzocaine 15 MG / Menthol 3.6 MG Lozeng e [Cepacol Sore Throat Pain Relief 15/3.6] Notes: Same as: Cepacol No Longer Active 11/04/2019 [facility] Acetaminophen 325 MG / Hydrocodone Micheal trate 5 MG Oral Tablet [[place] 5/325] Notes: (Same as: [place] 325/5) Do not ex ceed 4gm/day of acetaminophen. Inactive 07/08/2018 [facility] Melatonin Notes: (Same as: Leigh Ann atonin) Inactive 07/08/2018 [facility] BD Normal Saline Flush Notes: Same as: BD Posiflush Sterile No Longer Active 07/07/2018 [facility] Hydralazine Hydrochloride 25 MG Oral Tablet Notes: (Same as: Apresoline) May interfere w/enteral feedings Take With Food. No Longer Active 07/07/2018 [facility] Docusate Sodium 100 MG Oral Capsule [Colace] Notes: (Same as: Colace) (Do Not Crush) No Longer Active 07/07/2018 [facility] ferrous sulfate Notes: Give wi th food. iron elemental [id number] as ferrous sulfate Dose=___mg elemental iron No Longer Active 07/07/2018 [facility] Docusate Sodium 100 MG Oral Capsule [Colace] 100 mg = 1 cap, PO, BID, # 28 cap, 0 Refill(s), Pharmacy: [id number] Active 07/07/2018 [facility] Amoxicillin 875 MG / Clavulanate 125 MG Oral Tablet [Augmentin 875-mg] 1 tab, PO, Q12H, X 7 day, # 14 tab, 0 Re fill(s), Pharmacy: [facility] [id number] No Longer Active 07/07/2018 [facility] ferrous sulfate 325 MG Oral Tablet 325 mg = 1 tab, PO, TID, # 90 tab, 5 Refill(s), Pharmacy: [facility] [id number] Active 07/07/2018 [facility] Lisinopril Notes: (Same as: Pr inivil, Zestril) No Longer Active 07/07/2018 [facility] Amoxicillin 875 MG / Clavulanate 125 MG Oral Tablet [Augmentin 875-mg] Notes: With food. (Same as: Augmentin 87 5) No Longer Active 07/07/2018 [facility] Lopressor Notes: (Same as: Lop ressor) No Longer Active 07/07/2018 [facility] Amitriptyline Notes: (Same as: Elavil) No Longer Active 07/07/2018 [facility] Labetalol Notes: (Same as: Richard jarrettyne, Trandate) Push over 2 minutes Give bolus over 2-3 minutes. No Longer Active 07/06/2018 [facility] Unasyn Notes: Dosing based on Ampicillin component (Same as: Unasyn) Inactive 07/06/2018 [facility] Maxipime + Sodium Chloride 0.9% IV 100 mL Notes: (Same As: Maxipime) MEDICATION WASTE Product Size: 1000 mg Product Wasted: ___ mg No Longer Active 07/05/2018 [facility] Acetaminophen 325 MG / Hydrocodone Micheal trate 5 MG Oral Tablet [[place] 5/325] Notes: (Same as: [place] 325/5) Do not ex ceed 4gm/day of acetaminophen. Inactive 07/05/2018 [facility] Saline Flush 0.9% Notes: (Same as: BD Posiflush) No Longer Active 07/05/2018 [facility] heparin Notes: porcine heparin No Longer Active 07/05/2018 [facility] Zithromax Notes: (Same As: Zit hromax IV) No Longer Active 07/04/2018 [facility] cefepime 1 gm, Route: IVPB, Q1 2H, Dosing Weight 79.545, kg, Priority: STAT, Start date: 07/04/18 14:48:00 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, Duration: 30 day, Stop date: 08/03/18 9:00:00 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, ABX Indication: Pneumonia Inactive 07/04/2018 [facility] Ondansetron Notes: (Same as: Kory davis) MEDICATION WASTE Product Size: 4 mg Product Wasted: ___ mg No Longer Active 07/04/2018 [facility] Dextromethorphan Hydrobromide 2 MG/ML / Guaifenesin 20 MG/ML Oral Solution Notes: (dextromethorphan-guaifenesin 10- 100/5 ml LIQ) (Same as: Robitussin-DM) No Longer Active 07/04/2018 [facility] Acetaminophen Notes: Do not ex ceed 4 gm/day. (Same as: Tylenol) No Longer Active 07/04/2018 [facility] Albuterol 0.833 MG/ML / Ipratropium Brom laila 0.167 MG/ML Inhalant Solution Notes: (Same as: Duoneb) No Longer Active 07/04/2018 [facility] Sodium Chloride 0.9% IV 1,000 mL 1,000 mL, Rate: 125 ml/hr, Infuse over: 8 hr, Route: IV, Dosing Weight 79.545 kg, Total Volume: 1,000, Start date: 07/04/18 14:46:00 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, Duration: 30 day, Stop date: 08/03/18 14:45:00 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, 1.97, m2 No Longer Active 07/04/2018 [facility] Saline Flush 0.9% Notes: (Same as: BD Posiflush) No Longer Active 07/04/2018 [facility] cefepime 2 gm, Route: IVP, ONC E, Dosing Weight 79.545, kg, Priority: STAT, Start date: 07/04/18 14:43:00 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, Stop date: 07/04/18 14:43:00 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, ABX Indication: Pneumonia Inactive 07/04/2018 [facility] Levofloxacin 750 mg, Route: IV PB, ONCE, Dosing Weight 79.545, kg, Priority: STAT, Start date: 07/04/18 14:43:00 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, Stop date: 07/04/18 14:43:00 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, ABX Indication: Pneumonia Inactive 07/04/2018 [facility] Vancomycin 2001 mg: infuse ov er 2.5 hours For adult patients only: Round to nearest 250 mg per Medical Staff approval MEDICATION WASTE Product Size: 1000 mg Product Wasted: ___ mg Inactive 07/04/2018 [facility] cefepime Notes: (Same as: Franco guaman) MEDICATION WASTE Product Size: 2000 mg Product Wasted: ___ mg Inactive 07/04/2018 [facility] Isolyte S PH-7.4 (Bolus) IV 1, 000 mL, Route: IV, ONCE, Dosing Weight 79.545 kg, Start date: 07/04/18 11:50:00 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, Stop date: 07/04/18 11:50:00 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 Inactive 07/04/2018 [facility] Sodium Chloride 0.9% (Bolus) IV 1,000 mL, 1000 ml/hr, Infuse Over: 1 hr, Route: IV, 1,000, Drug form: INJ, ONCE, Priority: STAT, Dosing Weight 79.545 kg, Start date: 07/04/18 10:21:00 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, Stop date: 07/04/18 10:21:00 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 Inactive 07/04/2018 [facility] Acetaminophen 300 MG / Codeine Phosphate 30 MG Oral Tablet [Tylenol with Codeine #3] 1 tab, PO, TID, PRN Pain, X 7 day, # 21 tab, 0 Refill(s) No Longer Active 06/30/2018 [facility] lisinopril 5 mg oral tablet 5 mg = 1 tab, PO, Daily, # 30 tab, 0 Refill(s), Pharmacy: [facility] [id number] Active 06/30/2018 [facility] metoprolol tartrate 25 mg oral tablet 25 mg = 1 tab, PO, BID, # 60 tab, 0 Refill(s), Pharmacy: [facility] [id number] Active 06/30/2018 [facility] Lisinopril Notes: (Same as: Pr inivil, Zestril) No Longer Active 06/27/2018 [facility] Vasotec Notes: (Same as: Vasot ec-IV) No Longer Active 06/26/2018 [facility] vancomycin Notes: TIME CRITICA L MEDICATION Same as: Vancocin No Longer Active 06/25/2018 [facility] multivitamin Notes: (Same as:T nickolas) WASTE: F/P - Black; E - Municipal Trash Bin Take with food. No Longer Active 06/25/2018 [facility] Dakins Half Strength Solution 0.25% topical Notes: Note: half-strength = 0.25% sodium hypochlorite. No Longer Active 06/25/2018 [facility] Dilaudid Notes: (Same as: Dila udid) Inactive 06/25/2018 [facility] metoprolol tartrate Notes: (Sa me as: Lopressor) No Longer Active 06/24/2018 [facility] Sodium Chloride 0.9% IV 1,000 mL 1,000 mL, Rate: 50 ml/hr, Infuse over: 20 hr, Route: IV, Dosing Weight 80.003 kg, Total Volume: 1,000, Start date: 06/24/18 16:03:00 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, Duration: 30 day, Stop date: 07/24/18 16:02:00 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, 2.02, m2 No Longer Active 06/24/2018 [facility] pantoprazole Notes: Tablet miles uld not be chewed or crushed. (Same as: Protonix) N o Longer Active 06/24/2018 [facility] ferrous sulfate Notes: Give wi th food. iron elemental 80pg=332re as ferrous sulfate Dose=___mg elemental iron No Longer Active 06/24/2018 [facility] Amitriptyline Notes: (Same as: Elavil) No Longer Active 06/24/2018 [facility] Baclofen Notes: (Same As: Fitz esal) No Longer Active 06/23/2018 [facility] Levi packet Notes: (Same as: Levi Horsham) No Longer Active 06/23/2018 [facility] Dilaudid Notes: Same as Dilaud id No Longer Active 06/21/2018 [facility] Ondansetron Notes: (Same as: Kory davis) MEDICATION WASTE Product Size: 4 mg Product Wasted: ___ mg No Longer Active 06/21/2018 [facility] Lovenox Notes: (Same as: Loven ox) No Longer Active 06/21/2018 [facility] vancomycin 2001 mg: infuse ov er 2.5 hours No Longer Active 06/21/2018 [facility] cefepime Notes: (Same As: Franco guaman) MEDICATION WASTE Product Size: 1000 mg Product Wasted: ___ mg No Longer Active 06/21/2018 [facility] Vancomycin 1 ea, Route: IV, RECREATION OFFICER, Dosing Weight 80.003, kg, Start date: 06/20/18 22:00:00 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, Duration: 5 day, Stop date: 06/25/18 21:59:00 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, ABX Indication: Skin/Soft Tissue Infection Inactive 06/21/2018 [facility] Dilaudid Notes: Same as Dilaud id No Longer Active 06/21/2018 [facility] Acetaminophen Notes: Do not ex ceed 4 gm/day. (Same as: Tylenol) No Longer Active 06/21/2018 [facility] Glucagon 1 mg, Route: IM, Drug form: PDR/INJ, PRN, Dosing Weight 80.003, kg, PRN Blood Glucose Results, Start date: 06/20/18 21:14:00 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, Duration: 30 day, Stop date: 07/20/18 21:13:00 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 No Longer Active 06/21/2018 [facility] Dextrose 50% Syringe 25 gm, 50 mL, Route: IVP, Drug Form: INJ, Dosing Weight 80.003, kg, PRN, PRN Blood Glucose Results, Start date: 06/20/18 21:14:00 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, Duration: 30 day, Stop date: 07/20/18 21:13:00 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 No Longer Active 06/21/2018 [facility] Ondansetron Notes: (Same as: Kory davis) MEDICATION WASTE Product Size: 4 mg Product Wasted: ___ mg No Longer Active 06/21/2018 [facility] vancomycin 2001 mg: infuse ov er 2.5 hours Inactive 06/20/2018 [facility] Acetaminophen 325 MG / Hydrocodone Micheal trate 5 MG Oral Tablet [[place] 5/325] Notes: (Same as: [place] 325/5) Do not ex ceed 4gm/day of acetaminophen. Inactive 06/20/2018 [facility] Vancomycin Notes: TIME CRITICA L MEDICATION (Same As: Vancocin) For adult patients only: Round to nearest 250 mg per Medical Staff approval No Longer Active 06/20/2018 [facility] cefepime Notes: (Same as: Franco guaman) MEDICATION WASTE Product Size: 2000 mg Product Wasted: ___ mg Inactive 06/20/2018 [facility] Vancomycin 2001 mg: infuse ov er 2.5 hours For adult patients only: Round to nearest 250 mg per Medical Staff approval MEDICATION WASTE Product Size: 1000 mg Product Wasted: ___ mg Inactive 06/20/2018 [facility] Saline Flush 0.9% Notes: (Same as: BD Posiflush) No Longer Active 06/20/2018 [facility] Calcium Chloride 0.0014 MEQ/ML / Potassi um Chloride 0.004 MEQ/ML / Sodium Chloride 0.103 MEQ/ML / Sodium Lactate 0.028 MEQ/ML Injectable Solution 2,386.35 mL, 1988.63 ml/hr, Infuse Over: 1.2 hr, Route: IV, 2,386.35, Drug form: INJ, ONCE, Priority: STAT, Dosing Weight 79.545 kg, Start date: 06/20/18 14:58:00 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, Stop date: 06/20/18 14:58:00 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 Inactive 06/20/2018 [facility] baclofen 10 mg oral tablet 10 mg = 1 tab, PO, TID, # 42 tab, 0 Refill(s) Active 06/01/2018 [facility] linezolid 600 mg oral tablet 6 00 mg = 1 tab, PO, MACM13P, X 6 day, # 12 tab, 0 Refill(s) No Longer Active 06/01/2018 [facility] nter fluconazole 200 mg oral tablet 400 mg = 2 tab, PO, Daily, X 7 day, # 14 tab, 0 Refill(s) No Longer Active 06/01/2018 [facility] nter Fluconazole Notes: (Same as: D iflucan) Inactive 06/01/2018 [facility] Naloxone Notes: Same as Narcan No Longer Active 06/01/2018 [facility] remove patch Notes: Remove old patch before application of new patch. No Longer Active 05/31/2018 [facility] Dextrose 5% with 0.45% NaCl IV 1,000 mL 1,000 mL, Rate: 125 ml/hr, Infuse over: 8 hr, Route: IV, Dosing Weight 85.142 kg, Total Volume: 1,000, Start date: 05/30/18 12:11:00 CDT, Duration: 8 hr, Stop date: 05/30/18 20:10:00 CDT, 2.09, m2 Inactiv e 05/30/2018 [facility] heparin Notes: porcine heparin No Longer Active 05/29/2018 [facility] heparin 5,000 unit, Route: SUB -Q, Q12H, Dosing Weight 85.142, kg, Start date: 05/28/18 16:47:00 CDT, Duration: 30 day, Stop date: 06/27/18 9:00:00 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 Inactive 05/28/2018 [facility] 72 HR Fentanyl 0.1 MG/HR Transdermal Patch Notes: (Same as: Duragesic) Check for product integrity. Apply to intact skin "Remove old patch before application of new patch" No Longer Active 05/28/2018 [facility] nter Protonix Notes: Tablet should not be chewed or crushed. (Same as: Protonix) No Longer Active 05/27/2018 [facility] nter avibactam 0.293214 MG/ML / Ceftazidime 0 .622793 MG/ML Injectable Solution Notes: (Same as: Avycaz) Non-formulary No Longer Active 05/27/2018 [facility] tobramycin + Sodium Chloride 0.9% IV 100 mL Notes: TIME CRITICAL MEDICATION (Same As: Nebcin) For adult patients only: Round to nearest 10 mg per Medical Staff approval No Longer Active 05/26/2018 [facility] nter Unasyn Notes: Dosing based on Ampicillin component (Same as: Unasyn) No Longer Active 05/26/2018 [facility] nter Tobramycin 595.994 mg, Route: IV, Q24H, Dosing Weight 85.142, kg, Start date: 05/25/18 16:37:00 CDT, Duration: 30 day, Stop date: 06/23/18 16:37:00 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 Inactive 05/25/2018 [facility] Unasyn Notes: Dosing based on Ampicillin component (Same as: Unasyn) Inactive 05/25/2018 [facility] Magnesium Oxide Notes: (Same a s: Mag-Ox 400) Magnesium oxide [id number] elemental magnesium Dose=____mg magnesium oxide (___mg elemental magnesium) Inactive 05/25/2018 [facility] ferrous sulfate Notes: Give wi th food. "Do Not Crush" No Longer Active 05/25/2018 [facility] micafungin Notes: Same as Myca mine Protect from light MEDICATION WASTE Product Size: 100 mg Product Wasted: ___ mg No Longer Active 05/24/2018 [facility] Fluconazole Notes: (Same as: D iflucan) Inactive 05/24/2018 [facility] Sodium Chloride 0.9% (titrate) 250 mL 250 mL, Rate: To prime line and flush remaining blood products., Dosing Weight 85.142, kg, Route: IV, Total Volume: 250, Priority: Routine, Start Date: 05/23/18 9:19:00 CDT, Duration: 1 day, Stop date: 05/24/18 9:18:00 CDT, Replace Every: 24 hr No Longer Active 05/23/2018 [facility] linezolid 600 mg, Route: IV, Q 12H, Dosing Weight 85.142, kg, Start date: 05/22/18 21:00:00 CDT, Duration: 30 day, Stop date: 06/21/18 9:00:00 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, ABX Indication: Bacteremia Inactive 05/23/2018 [facility] nter vancomycin + Sodium Chloride 0.9% IV 250 mL 2001 mg: infuse over 2.5 hours For adult patients only: Round to nearest 250 mg per Medical Staff approval MEDICATION WASTE Product Size: 1000 mg Product Wasted: ___ mg Inactive 05/23/2018 [facility] Seroquel Notes: (Same as: SERO quel) No Longer Active 05/23/2018 [facility] Levi packet 1 pkt, Route: T F EED, Drug Form: PWDR, Dosing Weight 85.142, kg, BID-Before Meals, Start date: 05/22/18 16:30:00 CDT, Duration: 14 day, Stop date: 06/05/18 7:30:00 CDT Inactive 05/22/2018 [facility] nter Ondansetron Notes: (Same as: Kory davis) MEDICATION WASTE Product Size: 4 mg Product Wasted: ___ mg No Longer Active 05/22/2018 [facility] Baclofen Notes: (Same As: Fitz esal) No Longer Active 05/22/2018 [facility] 72 HR Fentanyl 0.05 MG/HR Transdermal Patch Notes: (Same as: Duragesic) Check for product integrity. Apply to intact skin "Remove old patch before application of new patch" No Longer Active 05/22/2018 [facility] nter Zyvox Notes: . (Same as: Zy vox) No Longer Active 05/22/2018 [facility] fentaNYL 100 mcg/hr transdermal film, extended release 1 patch, TOP, Q72H, # 10 patch, 0 Refill(s) No Longer Active 05/22/2018 [facility] nter Alprazolam 2 MG Oral Tablet No tru: With food or milk (Same as: Xanax) No Longer Active 05/22/2018 [facility] Vancomycin 2001 mg: infuse ov er 2.5 hours For adult patients only: Round to nearest 250 mg per Medical Staff approval MEDICATION WASTE Product Size: 1000 mg Product Wasted: ___ mg Inactive 05/22/2018 [facility] Ditropan XL Notes: (Same as: Benson itropan XL) "Do Not Crush" No Longer Active 05/22/2018 [facility] Folic Acid Notes: (Same as: Fo lvite) No Longer Active 05/22/2018 [facility] Zosyn Notes: (Same as: Zosyn) Dosing based on Piperacillin component MEDICATION WASTE Product Size: 3375 mg Product Wasted: ___ mg No Longer Active 05/22/2018 [facility] ferrous sulfate Notes: Give wi th food. "Do Not Crush" No Longer Active 05/22/2018 [facility] Lyrica Notes: (Same as: Lyrica) No Longer Active 05/22/2018 [facility] pregabalin 225 mg, Route: PO, Drug form: CAP, Q12H, Dosing Weight 84.091, kg, Start date: 05/21/18 21:00:00 CDT, Duration: 30 day, Stop date: 06/20/18 9:00:00 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 Inactive 05/22/2018 [facility] oxybutynin 5 mg oral tablet, extended release 5 mg = 1 tab, PO, BID, 0 Refill(s) No Longer Active 05/22/2018 [facility] pregabalin 75 MG Oral Capsule [Lyrica] 150 mg = 2 cap, PO, TID, # 90 cap, 0 Refill(s) No Longer Active 05/22/2018 [facility] Diphenhydramine Notes: (Same a s: Benadryl) Inactive 05/22/2018 [facility] Enoxaparin Notes: (Same as: Lo venox) No Longer Active 05/22/2018 [facility] Acetaminophen 325 MG / Hydrocodone Micheal trate 5 MG Oral Tablet Notes: (Same as: [place] 325/5) Do not ex ceed 4gm/day of acetaminophen. No Longer Active 05/21/2018 [facility] Lactated Ringers IV 1,000 mL 1 ,000 mL, Rate: 100 ml/hr, Infuse over: 10 hr, Route: IV, Dosing Weight 84.091 kg, Total Volume: 1,000, Start date: 05/21/18 18:48:00 CDT, Duration: 30 day, Stop date: 06/20/18 18:47:00 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, 2.08, m2 No Longer Active 05/21/2018 [facility] Calcium Chloride 0.0014 MEQ/ML / Potassi um Chloride 0.004 MEQ/ML / Sodium Chloride 0.103 MEQ/ML / Sodium Lactate 0.028 MEQ/ML Injectable Solution 1,000 mL, 1,000 ml/hr, Infuse Over: 1 hr , Route: IV, 1,000, Drug form: INJ, ONCE, Priority: STAT, Dosing Weight 84.091 kg, Start date: 05/21/18 18:48:00 CDT, Stop date: 05/21/18 18:48:00 CDT Inactive 05/21/2018 [facility] Dilaudid 1 mg, Route: IVP, ONC E, Dosing Weight 84.091, kg, Priority: STAT, Start date: 05/21/18 18:10:00 CDT, Stop date: 05/21/18 18:10:00 CDT Inactive 05/21/2018 [facility] Glucagon 1 mg, Route: IM, Drug form: PDR/INJ, PRN, Dosing Weight 84.091, kg, PRN Blood Glucose Results, Start date: 05/21/18 16:35:00 CDT, Duration: 30 day, Stop date: 06/20/18 15:34:00 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 No Longer Active 05/21/2018 [facility] Dextrose 50% Syringe 25 gm, 50 mL, Route: IVP, Drug Form: INJ, Dosing Weight 84.091, kg, PRN, PRN Blood Glucose Results, Start date: 05/21/18 16:35:00 CDT, Duration: 30 day, Stop date: 06/20/18 15:34:00 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 No Longer Active 05/21/2018 [facility] Metoprolol Notes: (Same as: Lo pressor) Push over 2 minutes Inactive 05/21/2018 [facility] Iohexol 100 mL, Route: IVP, Dr ug Form: SOLN, Dosing Weight 84.091, kg, ONCALL, STAT, Start date: 05/21/18 12:16:00 CDT, Duration: 1 doses or times, Weight = 75 - 94kg -- "To be infused by Radiology Staff ONLY" Inactive 05/21/2018 [facility] Morphine Notes: (Same as:MORPh ine Sulfate) Inactive 05/21/2018 [facility] Ondansetron Notes: (Same as: Kory davis) MEDICATION WASTE Product Size: 4 mg Product Wasted: ___ mg Inactive 05/21/2018 [facility] Zosyn Notes: (Same as: Zosyn) Dosing based on Piperacillin component MEDICATION WASTE Product Size: 3375 mg Product Wasted: ___ mg Inactive 05/21/2018 [facility] Vancomycin 2001 mg: infuse ov er 2.5 hours For adult patients only: Round to nearest 250 mg per Medical Staff approval MEDICATION WASTE Product Size: 1000 mg Product Wasted: ___ mg Inactive 05/21/2018 [facility] Morphine 4 mg, Route: IVP, ONC E, Dosing Weight 84.091, kg, Priority: STAT, Start date: 05/21/18 10:21:00 CDT, Stop date: 05/21/18 10:21:00 CDT Inactive 05/21/2018 [facility] Ondansetron Notes: (Same as: Kory davis) MEDICATION WASTE Product Size: 4 mg Product Wasted: _0_ mg Inactive 05/21/2018 [facility] Calcium Chloride 0.0014 MEQ/ML / Potassi um Chloride 0.004 MEQ/ML / Sodium Chloride 0.103 MEQ/ML / Sodium Lactate 0.028 MEQ/ML Injectable Solution 2,000 mL, 2,000 ml/hr, Route: IV, ONCE, Priority: STAT, Dosing Weight 84.091 kg, Start date: 05/21/18 10:11:00 CDT, Stop date: 05/21/18 10:11:00 CDT Inactive 05/21/2018 [facility] Saline Flush 0.9% Notes: (Same as: BD Posiflush) No Longer Active 05/21/2018 [facility] Dilaudid Notes: Same as Dilaud id Inactive 03/19/2018 [facility] hydromorphone 4 mg oral tablet 4 mg = 1 tab, PO, Q6H, PRN Pain Score 7-10, X 7 day, # 28 tab, 0 Refill(s), other No Longer Active 03/19/2018 [facility] ascorbic acid 1,000 mg = 2 tab , PO, Daily, 0 Refill(s) No Longer Active 03/19/2018 [facility] Enoxaparin 40 mg = 0.4 mL, SUB -Q, Daily, 0 Refill(s) No Longer Active 03/19/2018 [facility] meropenem 500 mg intravenous injection 500 mg, IV, Q6H, X 40 day, # 40 vial, 0 Refill(s), other No Longer Active 03/19/2018 [facility] Valium Notes: (Same as: Valium ) WASTE: F/P - Black; E - White/Blue Inactive 03/19/2018 [facility] Acetaminophen 325 MG / Hydrocodone Micheal trate 5 MG Oral Tablet [[place] 5/325] Notes: (Same as: [place] 325/5) Do not ex ceed 4gm/day of acetaminophen. No Longer Activ e 03/18/2018 [facility] Albuterol 0.83 MG/ML Inhalant Solution Notes: SEE RT DOCUMENTATION (Same as: Proventil) No Longer Active 03/18/2018 [facility] pantoprazole Notes: Tablet miles uld not be chewed or crushed. (Same as: Protonix) N o Longer Active 03/18/2018 [facility] Baclofen Notes: (Same As: Fitz esal) No Longer Active 03/18/2018 [facility] dexamethasone (ANES) Route: IV , Drug form: INJ, ONCE, Stop date: 03/17/18 19:01:00 CDT Inactive 03/18/2018 [facility] propofol (ANES) Route: IV, Arden g form: INJ, ONCE, Stop date: 03/17/18 18:46:00 CDT Inactive 03/17/2018 [facility] fentaNYL (ANES) Route: IV, Arden g form: INJ, ONCE, Stop date: 03/17/18 18:46:00 CDT Inactive 03/17/2018 [facility] ondansetron (ANES) Route: IV, Drug form: INJ, ONCE, Stop date: 03/17/18 18:46:00 CDT Inactive 03/17/2018 [facility] rocuronium (ANES) Route: IV, D rug form: INJ, ONCE, Stop date: 03/17/18 18:46:00 CDT Inactive 03/17/2018 [facility] Zinc Sulfate Notes: (Zinc sulf ate capsule) - 220 mg Zinc sulfate = 50 mg elemental zinc Same as Zinc Sulfate No Longer Active 03/17/2018 [facility] ascorbic acid Notes: (Same as: Vitamin C) No Longer Active 03/17/2018 [facility] Lyrica Notes: (Same as: Lyrica) No Longer Active 03/16/2018 [facility] oxybutynin Notes: Same as: Dit ropan) No Longer Active 03/16/2018 [facility] Alprazolam 2 MG Oral Tablet [Xanax] Notes: With food or milk (Same as: Xanax) No Longe r Active 03/16/2018 [facility] Vancomycin 2001 mg: infuse ov er 2.5 hours For adult patients only: Round to nearest 250 mg per Medical Staff approval MEDICATION WASTE Product Size: 1000 mg Product Wasted: ___ mg No Longer Active 03/16/2018 [facility] Amitriptyline Notes: (Same as: Elavil) No Longer Active 03/16/2018 [facility] Enoxaparin Notes: (Same as: Lo venox) No Longer Active 03/15/2018 [facility] Docusate Notes: (Same as: Cola ce) (Do Not Crush) No Longer Active 03/15/2018 [facility] remove patch Notes: Remove old patch before application of new patch. WASTE: F/P - P Waste Black; E - P Waste Black No Longer Active 03/15/2018 [facility] tizanidine Notes: (Same As: Za naflex) No Longer Active 03/15/2018 [facility] meropenem Notes: Same as Barak jamil MEDICATION WASTE Product Size: 500 mg Product Wasted: ___ mg No Longer Active 03/15/2018 [facility] Nicotine Notes: (Same as: Roney montague) "Remove old patch before application of new patch" WASTE: F/P - P Waste Black; E - P Waste Black No Longer Active 03/15/2018 [facility] vancomycin + Sodium Chloride 0.9% IV 500 mL 2001 mg: infuse over 2.5 hours For adult patients only: Round to nearest 250 mg per Medical Staff approval MEDICATION WASTE Product Size: 1000 mg Product Wasted: ___ mg Inactive 03/15/2018 [facility] Dilaudid Notes: Same as Dilaud id No Longer Active 03/15/2018 [facility] normal saline 0.9% IV 1,000 mL 1,000 mL, Rate: 100 ml/hr, Infuse over: 10 hr, Route: IV, Dosing Weight 81.818 kg, Total Volume: 1,000, Start date: 03/14/18 23:53:00 CDT, Duration: 30 day, Stop date: 04/13/18 23:52:00 CDT, 2.05, m2 No Longer Active 03/15/2018 [facility] Ondansetron Notes: (Same as: Kory davis) MEDICATION WASTE Product Size: 4 mg Product Wasted: ___ mg No Longer Active 03/15/2018 [facility] Acetaminophen Notes: Do not ex ceed 4 gm/day. (Same as: Tylenol) No Longer Active 03/15/2018 [facility] Sodium Chloride 0.9% (Bolus) IV 1,000 mL, 1000 ml/hr, Infuse Over: 1 hr, Route: IV, 1,000, Drug form: INJ, ONCE, Priority: STAT, Dosing Weight 81.818 kg, Start date: 03/14/18 23:44:00 CDT, Stop date: 03/14/18 23:44:00 CDT No Longer Active 03/15/2018 [facility] meropenem Notes: (Same as: Sandy rem) . MEDICATION WASTE Product Size: 1000 mg Product Wasted: ___ mg Inactive 03/15/2018 [facility] Vancomycin 2001 mg: infuse ov er 2.5 hours For adult patients only: Round to nearest 250 mg per Medical Staff approval MEDICATION WASTE Product Size: 1000 mg Product Wasted: ___ mg Inactive 03/15/2018 [facility] Saline Flush 0.9% Notes: Same as: BD Posiflush Sterile No Longer Active 03/15/2018 [facility] Sodium Chloride 0.9% (Bolus) IV 2,000 mL, 2,000 ml/hr, Infuse Over: 1 hr, Route: IV, 2,000, Drug form: INJ, ONCE, Priority: STAT, Dosing Weight 81.818 kg, Start date: 03/14/18 20:55:00 CDT, Stop date: 03/14/18 20:55:00 CDT Inactive 03/15/2018 [facility] vancomycin 1.25 g/250 mL-NaCl 0.9% intravenous solutio n 1.25 gm, IV, Q12H, # 40 bag, 0 Refill(s) Active 01/20/2018 [facility] cefepime 1 g intravenous injection 1 gm, IV, Q12H, # 40 bag, 0 Refill(s) No Longer Active 01/20/2018 [facility] Vitamin C Notes: (Same as: Vit ayala C) Inactive 01/20/2018 [facility] Enoxaparin 30 mg = 0.3 mL, SUB -Q, [id number], 0 Refill(s) Active 01/17/2018 [facility] hydromorphone 4 mg oral tablet 4 mg = 1 tab, PO, Q3H, PRN Pain Score 7-10, 0 Refill(s) Active 01/17/2018 [facility] Sodium Chloride 0.154 MEQ/ML Inhalant Solution 0.09 gm = 10 mL, IVP, PRN, PRN Line Flush, 0 Refill(s) Active 01/17/2018 [facility] cefepime 1 gm, IVPB, Q8H, 0 Re fill(s) No Longer Active 01/17/2018 [facility] please dont give 8PM vanc dose please dont give 8PM vanc dose, before 1930 trough is drawn, Drug form: MISC, Route: MISC, ONCE, 01/16/18 19:30:00 CDT, Stop date: 01/16/18 19:30:00 CDT Inactive 01/17/2018 [facility] Levi packet Notes: (Same as: Levi Horsham) No Longer Active 01/16/2018 [facility] multivitamin Notes: (Same as:O ne Tab Daily, Tab-A-Mima + Beta Carotene) Give with food. No Longer Active 01/16/2018 [facility] Folic Acid Notes: (Same as: Fo lvite) No Longer Active 01/16/2018 [facility] ferrous sulfate Notes: Give wi th food. "Do Not Crush" No Longer Active 01/16/2018 [facility] pregabalin Notes: (Same as: Ly steve) No Longer Active 01/16/2018 [facility] Amitriptyline Notes: (Same as: Elavil) No Longer Active 01/16/2018 [facility] Vancomycin Notes: TIME CRITICA L MEDICATION (Same As: Vancocin) For adult patients only: Round to nearest 250 mg per Medical Staff approval No Longer Active 01/16/2018 [facility] cefepime Notes: (Same As: Franco guaman) MEDICATION WASTE Product Size: 1000 mg Product Wasted: ___ mg No Longer Active 01/15/2018 [facility] Zinc Sulfate Notes: (Zinc sulf ate capsule) - 220 mg Zinc sulfate = 50 mg elemental zinc Same as Zinc Sulfate No Longer Active 01/15/2018 [facility] sennosides, [facility] Notes: (Same a s: Senokot) No Longer Active 01/15/2018 [facility] Ditropan XL Notes: (Same as: D itropan XL) "Do Not Crush" No Longer Active 01/15/2018 [facility] Docusate Sodium 100 MG Oral Capsule Notes: (Same as: Colace) (Do Not Crush) No Longer Active 01/15/2018 [facility] Santyl Notes: (Same As: Santyl) No Longer Active 01/15/2018 [facility] pantoprazole Notes: Tablet miles uld not be chewed or crushed. (Same as: Protonix) N o Longer Active 01/15/2018 [facility] Baclofen Notes: (Same As: Fitz esal) No Longer Active 01/15/2018 [facility] Vancomycin 1 ea, Route: IV, RECREATION OFFICER, Dosing Weight 77.273, kg, Start date: 01/15/18 12:00:00 CDT, Duration: 42 day, Stop date: 02/26/18 11:59:00 CDT, ABX Indication: Skin/Soft Tissue Infection Inactive 01/15/2018 [facility] Enoxaparin Notes: (Same as: Lo venox) No Longer Active 01/15/2018 [facility] tizanidine Notes: (Same As: Za naflex) No Longer Active 01/15/2018 [facility] Dilaudid Notes: (Same as: Dila udid) No Longer Active 01/15/2018 [facility] Alprazolam 2 MG Oral Tablet No tru: With food or milk (Same as: Xanax) No Longer Active 01/15/2018 [facility] Sodium Chloride 0.9% (Bolus) IV 2,318.19 mL, 2318.19 ml/hr, Infuse Over: 1 hr, Route: IV, 2,318.19, Drug form: INJ, ONCE, Priority: STAT, Dosing Weight 77.273 kg, Start date: 01/15/18 11:28:00 CDT, Stop date: 01/15/18 11:28:00 CDT No Longe r Active 01/15/2018 [facility] Fentanyl 50 microgram, Route: IVP, ONCE, Dosing Weight 77.273, kg, Priority: STAT, Start date: 01/15/18 7:59:00 CDT, Stop date: 01/15/18 7:59:00 CDT Inactive 01/15/2018 [facility] cefepime Notes: (Same As: Franco guaman) MEDICATION WASTE Product Size: 1000 mg Product Wasted: ___ mg Inactive 01/15/2018 [facility] Vancomycin 2001 mg: infuse ov er 2.5 hours For adult patients only: Round to nearest 250 mg per Medical Staff approval MEDICATION WASTE Product Size: 1000 mg Product Wasted: ___ mg Inactive 01/15/2018 [facility] Sodium Chloride 0.9% (Bolus) IV 1,000 mL, 1000 ml/hr, Infuse Over: 1 hr, Route: IV, 1,000, Drug form: INJ, ONCE, Priority: STAT, Dosing Weight 77.273 kg, Start date: 01/15/18 6:09:00 CDT, Stop date: 01/15/18 6:09:00 CDT Inactive 01/15/2018 [facility] Saline Flush 0.9% Notes: (Same as: BD Posiflush) No Longer Active 01/15/2018 [facility] Docusate Sodium 100 MG Oral Capsule 100 mg = 1 cap, PO, BID, # 28 cap, 0 Refill(s), Pharmacy: [facility] [id number] Active 10/22/2017 [facility] Alprazolam 2 MG Oral Tablet PO , BID, PRN Anxiety, 0 Refill(s) Active 10/22/2017 [facility] baclofen 10 mg oral tablet 10 mg = 1 tab, PO, TID, # 42 tab, 0 Refill(s), Pharmacy: [facility] [id number] Active 10/22/2017 [facility] ferrous sulfate 325 mg oral enteric coated tablet 325 mg = 1 tab, PO, Daily, # 30 tab, 0 Refill(s), Pharmacy: [facility] [id number] Active 10/22/2017 [facility] amitriptyline 50 mg oral tablet 50 mg = 1 tab, PO, Bedtime, # 14 tab, 0 Refill(s), Pharmacy: [facility] [id number] Active 10/22/2017 [facility] tizanidine 4 mg oral tablet 4 mg = 1 tab, PO, Q6H, 0 Refill(s) Active 10/22/2017 [facility] pregabalin 75 mg oral capsule 225 mg = 3 cap, PO, Q12H, 0 Refill(s) Active 10/22/2017 [facility] pantoprazole 40 mg oral enteric coated tablet 40 mg = 1 tab, PO, Before Dinner, # 30 tab, 0 Refill(s), Pharmacy: [facility] [id number] Active 10/22/2017 [facility] heparin sodium, porcine 2500 UNT/ML Injectable Solutio n Notes: porcine heparin No Longer Active 10/21/2017 [facility] Oxycodone Hydrochloride 5 MG Oral Tablet Notes: (Same as: Roxicodone) No Longer Active 10/20/2017 [facility] NS 1,000 mL 1,000 mL, Rate: 15 0 ml/hr, Infuse over: 6.7 hr, Route: IV, Dosing Weight 72.727 kg, Total Volume: 1,000, Start date: 10/20/17 7:43:00 CDT, Duration: 30 day, Stop date: 11/19/17 7:42:00 CDT, 1.93, m2 No Longer Active 10/20/2017 [facility] NS 1,000 mL 1,000 mL, Rate: 10 0 ml/hr, Infuse over: 10 hr, Route: IV, Dosing Weight 72.727 kg, Total Volume: 1,000, Start date: 10/15/17 19:41:00 CDT, Duration: 30 day, Stop date: 11/14/17 19:40:00 CDT, 1.93, m2 No Longer Active 10/16/2017 [facility] Albuterol 0.83 MG/ML Inhalant Solution Notes: SEE RT DOCUMENTATION (Same as: Proventil) No Longer Active 10/15/2017 [facility] Alprazolam 2 MG Oral Tablet No tru: With food or milk (Same as: Xanax) No Longer Active 10/14/2017 [facility] apixaban 5 MG Oral Tablet [Eliquis] 5 mg, PO, Q12H, 0 Refill(s) No Longer Active 10/14/2017 [facility] carvedilol 3.125 mg oral tablet 3.125 mg = 1 tab, PO, BID, 0 Refill(s) No Longer Active 10/14/2017 [facility] Acetaminophen 325 MG / Hydrocodone Micheal trate 10 MG Oral Tablet [[place] 10/325] 1 tab, PO, Q6H, PRN for pain, 0 Refill(s ) No Longer Active 10/14/2017 [facility] Alprazolam 2 MG Oral Tablet 2 mg = 1 tab, PO, BID, 0 Refill(s) No Longer Active 10/14/2017 [facility] 24 HR Oxybutynin chloride 10 MG Extended Release Tablet [Ditropan] 10 mg = 1 tab, PO, BID, 0 Refill(s) Active 10/14/2017 [facility] multivitamin 1 tab, PO, Daily, 0 Refill(s) Active 10/14/2017 [facility] tizanidine 4 mg oral tablet 4 mg = 1 tab, PO, TID, 0 Refill(s) No Longer Active 10/14/2017 [facility] zinc sulfate 220 mg oral tablet 220 mg = 1 tab, PO, Daily, # 100 tab, 0 Refill(s) Active 10/14/2017 [facility] COLLAGENASE 0.25 UNT/MG Topical Ointment [Santyl] 1 appl, TOP, Daily, TO RIGHT FOOT NEEDED FOR WOUND CARE, 0 Refill(s) Active 10/14/2017 [facility] pregabalin 75 MG Oral Capsule [Lyrica] 75 mg = 1 cap, PO, BID, 0 Refill(s) No Longer Active 10/14/2017 [facility] Folic Acid 1 MG Oral Tablet 1 mg = 1 tab, PO, Daily, 0 Refill(s) Active 10/14/2017 [facility] Senna 8.6 mg oral tablet 8.6 m g = 1 tab, PO, BID, 0 Refill(s) Active 10/14/2017 [facility] Acetaminophen 325 MG Oral Tablet [Tylenol] 650 mg = 2 tab, PO, Q4H, 0 Refill(s) No Longer Active 10/14/2017 [facility] vancomycin + Sodium Chloride 0.9% IV 250 mL 1,000 mg, Route: IVPB, Drug form: INJ, [id number], Start date: 10/14/17 5:00:00 CDT, Stop date: 10/22/17 6:00:00 CDT, ABX Indication: Bone/Joint Infection No Longer Active 10/14/2017 [facility] Alprazolam 1 MG Oral Tablet [Xanax] Notes: With food or milk (Same as: Xanax) No Longe r Active 10/12/2017 [facility] Alprazolam 2 MG Oral Tablet [Xanax] Notes: With food or milk (Same as: Xanax) No Longe r Active 10/12/2017 [facility] Flexeril Notes: Same as Flexer il No Longer Active 10/12/2017 [facility] Santyl Notes: (Same As: Santyl) No Longer Active 10/06/2017 [facility] Vancomycin Notes: TIME CRITICA L MEDICATION (Same As: Vancocin) For adult patients only: Round to nearest 250 mg per Medical Staff approval No Longer Active 10/03/2017 [facility] D5W 1/2NS 1,000 mL 1,000 mL, R ate: 125 ml/hr, Infuse over: 8 hr, Route: IV, Dosing Weight 72.727 kg, Total Volume: 1,000, Start date: 10/02/17 18:40:00 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, Duration: 1 doses or times, Stop date: 10/03/17 2:39:00 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, 1.93, m2 Inactive 10/03/2017 [facility] Oxycodone Hydrochloride 5 MG Oral Tablet Notes: (Same as: Roxicodone) No Longer Active 10/02/2017 [facility] Dilaudid Notes: Same as Dilaud id Inactive 10/01/2017 [facility] vancomycin + Sodium Chloride 0.9% IV 100 mL Notes: TIME CRITICAL MEDICATION (Same As: Vancocin) For adult patients only: Round to nearest 250 mg per Medical Staff approval No Longer Active 09/30/2017 [facility] normal saline 0.9% IV 500 mL 5 00 mL, Rate: 500 ml/hr, Infuse over: 1 hr, Route: IV, Dosing Weight 72.727 kg, Total Volume: 500, Start date: 09/30/17 12:42:00 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, Duration: 1 doses or times, Stop date: 09/30/17 13:41:00 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, 1.93, m2 Inactiv e 09/30/2017 [facility] Melatonin 3 MG Extended Release Tablet Notes: (Same as: Melatonin) No Longer Active 09/29/2017 [facility] meropenem Notes: Same as Barak m MEDICATION WASTE Product Size: 500 mg Product Wasted: ___ mg No Longer Active 09/28/2017 [facility] Dilaudid Notes: Same as Dilaud id Inactive 09/28/2017 [facility] Flexeril Notes: (Same As: Flex eril) Inactive 09/25/2017 [facility] Dilaudid Notes: (Same as: Dila udid) Inactive 09/21/2017 [facility] Sodium Chloride 0.9% (titrate) 250 mL 250 mL, Rate: To prime line and flush remaining blood products., Dosing Weight 72.727, kg, Route: IV, Total Volume: 250, Start Date: 09/19/17 4:12:00 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, Duration: 30 day, Stop date: 10/19/17 4:11:00 CDT, Replace Every: 24 hr No Longer Active 09/19/2017 [facility] Fentanyl 50 microgram, Route: IV, ONCE, Dosing Weight 72.727, kg, Start date: 09/17/17 17:39:00 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, Stop date: 09/17/17 17:39:00 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 Inactive 09/17/2017 [facility] Midazolam 1 mg, Route: IV, ONC E, Dosing Weight 72.727, kg, Start date: 09/17/17 17:39:00 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, Stop date: 09/17/17 17:39:00 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 Inactive 09/17/2017 [facility] Midazolam 1 mg, Route: IV, ONC E, Dosing Weight 72.727, kg, Start date: 09/17/17 17:24:00 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, Stop date: 09/17/17 17:24:00 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 Inactive 09/17/2017 [facility] Fentanyl 50 microgram, Route: IV, ONCE, Dosing Weight 72.727, kg, Start date: 09/17/17 17:24:00 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, Stop date: 09/17/17 17:24:00 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 Inactive 09/17/2017 [facility] Albuterol 0.83 MG/ML Inhalant Solution Notes: SEE RT DOCUMENTATION (Same as: Proventil) No Longer Active 09/17/2017 [facility] nter tizanidine Notes: (Same As: Za naflex) No Longer Active 09/16/2017 [facility] Tylenol Notes: Do not exceed 4 gm/day. (Same as: Tylenol) No Longer Active 09/15/2017 [facility] Acetaminophen 325 MG / Hydrocodone Micheal trate 10 MG Oral Tablet [Boxford 10/325] Notes: Do not exceed 4gm/day of acetamin ophen. (Same as: Boxford 325/10) No Longer Active 09/15/2017 [facility] Tetrahydrocannabinol Notes: (S marva as: Marinol) Non- Formulary Drug. No Longer Active 09/14/2017 [facility] nter vancomycin + Sodium Chloride 0.9% IV 250 mL 2001 mg: infuse over 2.5 hours For adult patients only: Round to nearest 250 mg per Medical Staff approval MEDICATION WASTE Product Size: 1000 mg Product Wasted: ___ mg No Longer Active 09/14/2017 [facility] nter meropenem Notes: Same as Barak jamil MEDICATION WASTE Product Size: 500 mg Product Wasted: ___ mg No Longer Active 09/14/2017 [facility] Amikin + Sodium Chloride 0.9% IV 100 mL Notes: TIME CRITICAL MEDICATION (Same as: Amikin) For adult patients only: Round to nearest 50 mg per Medical Staff approval MEDICATION WASTE Product Size: 1000 mg Product Wasted: ___ mg No Longer Active 09/14/2017 [facility] nter Gentamicin 350 mg, Route: IV, Q24H, Dosing Weight 72.727, kg, Start date: 09/14/17 8:00:00 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, Duration: 30 day, Stop date: 10/13/17 8:00:00 CDT Inactive 09/14/2017 [facility] Unasyn 3 gm, Route: IVPB, Drug form: PDR/INJ, [id number], Dosing Weight 72.727, kg, Start date: 09/14/17 8:00:00 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, Duration: 30 day, Stop date: 10/14/17 2:00:00 CDT Inactive 09/14/2017 [facility] nter Vancomycin 750 mg, Route: IVPB , Drug form: INJ, [id number], Dosing Weight 72.727, kg, Start date: 09/14/17 8:00:00 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, Duration: 14 day, Stop date: 09/27/17 20:00:00 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, ABX Indication: Bone/Joint Infection Inactive 09/14/2017 [facility] Methadone Notes: (Same as: Dol ophine) No Longer Active 09/14/2017 [facility] Baclofen Notes: (Same As: Fitz esal) No Longer Active 09/12/2017 [facility] vancomycin + Sodium Chloride 0.9% IV 250 mL 2001 mg: infuse over 2.5 hours For adult patients only: Round to nearest 250 mg per Medical Staff approval MEDICATION WASTE Product Size: 1000 mg Product Wasted: ___ mg No Longer Active 09/12/2017 [facility] nter Oxycodone Hydrochloride 5 MG Oral Tablet Notes: (Same as: Roxicodone) No Longer Active 09/12/2017 [facility] nter Acetaminophen Notes: Max aceta minophen 4000 mg/day (4 gm/day). (Same as: Tylenol Extra Strength) No Longer Active 09/12/2017 [facility] nter Enoxaparin Notes: (Same as: Lo venox) No Longer Active 09/12/2017 [facility] Dilaudid Notes: Same as Dilaud id No Longer Active 09/12/2017 [facility] Ativan Notes: (Same as: Ativan) Inactive 09/12/2017 [facility] Amitriptyline Notes: (Same as: Elavil) No Longer Active 09/11/2017 [facility] Acetaminophen 325 MG / Hydrocodone Micheal trate 5 MG Oral Tablet [Boxford 5/325] Notes: (Same as: [place]ford 325/5) Do not ex ceed 4gm/day of acetaminophen. No Longer Activ e 09/11/2017 [facility] remove patch Notes: Remove pat ch 12 hours after application each day. No Longe r Active 09/11/2017 [facility] nter vancomycin + Sodium Chloride 0.9% IV 250 mL 2001 mg: infuse over 2.5 hours For adult patients only: Round to nearest 250 mg per Medical Staff approval MEDICATION WASTE Product Size: 1000 mg Product Wasted: ___ mg No Longer Active 09/10/2017 [facility] nter pantoprazole 40 mg, 1 tab, Rou te: PO, Drug form: ECTAB, Before Dinner, Dosing Weight 72.727, kg, Start date: 09/10/17 16:30:00 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, Duration: 30 day, Stop date: 11/08/17 16:30:00 CDT No Longer Active 09/10/2017 [facility] Docusate Notes: (Same as: Cola ce) (Do Not Crush) No Longer Active 09/10/2017 [facility] Zinc Sulfate Notes: (Zinc sulf ate capsule) - 220 mg Zinc sulfate = 50 mg elemental zinc Same as Zinc Sulfate No Longer Active 09/10/2017 [facility] multivitamin Notes: (Same as:Shantell olmos) WASTE: F/P - Black; E - Municipal Trash Bin Take with food. No Longer Active 09/10/2017 [facility] nter ascorbic acid Notes: (Same as: Vitamin C) No Longer Active 09/10/2017 [facility] pregabalin Notes: (Same as: Ly steve) No Longer Active 09/10/2017 [facility] oxybutynin Notes: Same as: Juliet ropmalik) No Longer Active 09/10/2017 [facility] Folic Acid Notes: (Same as: Fo lvite) No Longer Active 09/10/2017 [facility] ferrous sulfate 325 mg, 1 tab, Route: PO, Drug form: ECTAB, Daily, Dosing Weight 72.727, kg, Start date: 09/10/17 9:00:00 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, Duration: 30 day, Stop date: 11/08/17 9:00:00 CDT No Longer Active 09/10/2017 [facility] duloxetine 60 mg, 1 cap, Route : PO, Drug form: DRC, Daily, Dosing Weight 72.727, kg, Start date: 09/10/17 9:00:00 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, Duration: 30 day, Stop date: 11/08/17 9:00:00 CDT No Longer Active 09/10/2017 [facility] n[facility] Alprazolam 0.5 MG Oral Tablet [Xanax] Notes: With food or milk (Same as: Xanax) No Longer Active 09/10/2017 [facility] nter meropenem Notes: Same as Barak jamil MEDICATION WASTE Product Size: 500 mg Product Wasted: ___ mg No Longer Active 09/10/2017 [facility] carvedilol Notes: Give with fo od. (Same As: Coreg) No Longer Active 09/10/2017 [facility] Lidocaine 0.05 MG/MG Transdermal Patch Notes: Apply only once for up to 12 hours in a 24-hour period (12 hours on and 12 hours off). (Same as: Lidoderm) "Remove old patch before application of new patch" No Longer Active 09/10/2017 [facility] Ondansetron Notes: (Same as: Kory davis) MEDICATION WASTE Product Size: 4 mg Product Wasted: ___ mg No Longer Active 09/10/2017 [facility] Acetaminophen Notes: Do not ex ceed 4 gm/day. (Same as: Tylenol) No Longer Active 09/10/2017 [facility] sennosides, FCI 8.6 MG Oral Tablet Notes: (Same as: Senokot) No Longer Active 09/10/2017 [facility] Docusate Sodium 100 MG Oral Capsule Notes: (Same as: Colace) (Do Not Crush) No Longer Active 09/10/2017 [facility] nter Vancomycin 2001 mg: infuse ov er 2.5 hours For adult patients only: Round to nearest 250 mg per Medical Staff approval MEDICATION WASTE Product Size: 1000 mg Product Wasted: ___ mg Inactive 09/10/2017 [facility] Isolyte S PH 7.4 1,000 mL Note s: (Same as: Isolyte S PH 7.4) No Longer Active 09/10/2017 [facility] Isolyte S 1,000 mL Notes: (Corey e as: Isolyte S PH 7.4) Inactive 09/10/2017 [facility] Isolyte S PH 7.4 1,000 mL Note s: (Same as: Isolyte S PH 7.4) Inactive 09/10/2017 [facility] PlasmaLyte A PH-7.4 1,000 mL N otes: (Same as: Isolyte S PH 7.4) Inactive 09/10/2017 [facility] Dilaudid 1 mg, Route: IV, ONCE , Dosing Weight 72.727, kg, Start date: 09/09/17 23:17:00 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, Stop date: 09/09/17 23:17:00 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 Inactive 09/10/2017 [facility] meropenem 1,000 mg, Route: IVP B, Drug form: PDR/INJ, ONCE, Dosing Weight 72.727, kg, Priority: STAT, Start date: 09/09/17 22:56:00 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, Stop date: 09/09/17 22:56:00 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, ABX Indication: Bacteremia Inactive 09/10/2017 [facility] meropenem 500 mg, Route: IVPB, Drug form: PDR/INJ, ONCE, Dosing Weight 72.727, kg, Priority: STAT, Start date: 09/09/17 22:49:00 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, Stop date: 09/09/17 22:49:00 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, ABX Indication: Bacteremia Inactive 09/10/2017 [facility] Calcium Chloride 0.0014 MEQ/ML / Potassi um Chloride 0.004 MEQ/ML / Sodium Chloride 0.103 MEQ/ML / Sodium Lactate 0.028 MEQ/ML Injectable Solution 2,000 mL, 2000 ml/hr, Infuse Over: 1 hr, Route: IV, 2,000, Drug form: INJ, ONCE, Priority: STAT, Dosing Weight 72.727 kg, Start date: 09/09/17 22:48:00 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, Stop date: 09/09/17 22:48:00 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 Inactive 09/10/2017 [facility] nter Saline Flush 0.9% Notes: (Same as: BD Posiflush) No Longer Active 09/10/2017 [facility] Tylenol Notes: Do not exceed 4 gm/day. (Same as: Tylenol) Inactive 09/10/2017 [facility] Acetaminophen 325 MG / Hydrocodone Micheal trate 10 MG Oral Tablet [[place] ] 1 tab, PO, Q6H, PRN for pain, X 6 day, # 24 tab, 0 Refill(s) Active 05/28/2017 [facility] Folic Acid Notes: (Same as: Fo lvite) Inactive 05/28/2017 [facility] ferrous sulfate Notes: Give wi th food. iron elemental [id number] as ferrous sulfate Dose=___mg elemental iron Inactive 05/28/2017 [facility] duloxetine Notes: (Same as: Cy mbalta) (Do Not Crush) Inactive 05/28/2017 [facility] remove patch Notes: Remove old patch before application of new patch. WASTE: F/P - P Waste Black; E - P Waste Black No Longer Active 05/28/2017 [facility] Amitriptyline Notes: (Same as: Elavil) No Longer Active 05/28/2017 [facility] pregabalin Notes: (Same as: Ly steve) No Longer Active 05/28/2017 [facility] remove patch Notes: Remove pat ch 12 hours after application each day. No Longe r Active 05/28/2017 [facility] Lyrica Notes: (Same as: Lyrica) Inactive 05/28/2017 [facility] Lyrica Notes: (Same as: Lyrica) Inactive 05/28/2017 [facility] pregabalin 175 mg, Route: PO, ONCE, Dosing Weight 73.864, kg, Start date: 05/27/17 20:07:00 CDT, Stop date: 05/27/17 20:07:00 CDT Inactive 05/28/2017 [facility] Amitriptyline Notes: (Same as: Elavil) Inactive 05/27/2017 [facility] pregabalin Notes: Same as Lyri ca Inactive 05/27/2017 [facility] APAP/butalbital/caffeine Notes : (ovnzxoncjpiar-yfdwsmiqoc-ehflajfm 325-50-40mg) Do not exceed 4 gm/day of acetaminophen. (Same as: Esgic, Fioricet) No Longer Active 05/27/2017 [facility] carvedilol Notes: Give with fo od. (Same As: Coreg) No Longer Active 05/27/2017 [facility] oxybutynin Notes: Same as: Dit ropan) No Longer Active 05/27/2017 [facility] pantoprazole Notes: Tablet miles uld not be chewed or crushed. (Same as: Protonix) N o Longer Active 05/27/2017 [facility] Aspirin 325 MG / butalbital 50 MG / Caff eine 40 MG Oral Capsule [Fiorinal] 1 cap, Route: PO, Dosing Weight 73.864, kg, Q6H, PRN Headache 1-5, Start date: 05/27/17 14:23:00 CDT, Duration: 30 day, Stop date: 06/26/17 14:22:00 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 Inactive 05/27/2017 [facility] Nicotine Notes: (Same as: Roney montague) "Remove old patch before application of new patch" WASTE: F/P - P Waste Black; E - P Waste Black No Longer Active 05/27/2017 [facility] Lidocaine 0.05 MG/MG Transdermal Patch Notes: Apply only once for up to 12 hours in a 24-hour period (12 hours on and 12 hours off). (Same as: Lidoderm) "Remove old patch before application of new patch" No Longer Active 05/27/2017 [facility] meropenem 500 mg intravenous injection 500 mg, IV, Q6H, X 10 day, # 40 bag, 0 Refill(s), other Active 05/27/2017 [facility] Levi packet Notes: (Same as: Levi Horsham) No Longer Active 05/27/2017 [facility] Phenergan Notes: (Same as: Phe nergan) No Longer Active 05/24/2017 [facility] multivitamin Notes: (Same as:Shantell olmos) WASTE: F/P - Black; E - Municipal Trash Bin Take with food. No Longer Active 05/24/2017 [facility] ascorbic acid Notes: (Same as: Vitamin C) No Longer Active 05/24/2017 [facility] Zinc Sulfate Notes: (Zinc sulf ate capsule) - 220 mg Zinc sulfate = 50 mg elemental zinc Same as Zinc Sulfate No Longer Active 05/24/2017 [facility] Lorazepam Notes: (Same as: Sarah lao) No Longer Active 05/23/2017 [facility] meropenem Notes: Same as Barak jamil MEDICATION WASTE Product Size: 500 mg Product Wasted: ___ mg No Longer Active 05/22/2017 [facility] multivitamin Notes: (Same as:Shantell olmos) WASTE: F/P - Black; E - Municipal Trash Bin Take with food. No Longer Active 05/22/2017 [facility] ascorbic acid Notes: (Same as: Vitamin C) No Longer Active 05/22/2017 [facility] Zinc Sulfate Notes: (Zinc sulf ate capsule) - 220 mg Zinc sulfate = 50 mg elemental zinc Same as Zinc Sulfate No Longer Active 05/22/2017 [facility] influenza virus vaccine, inactivated Notes: (Same as: Fluzone Quadrivalent, Fluarix Quadrivalent) For 3 years of age and older (0.5 mL IM) Shake well before use N o Longer Active 05/22/2017 [facility] Enoxaparin Notes: (Same as: Lo venox) No Longer Active 05/22/2017 [facility] Vancomycin 2001 mg: infuse ov er 2.5 hours MEDICATION WASTE Product Size: 1000 mg Product Wasted: ___ mg No Longer Active 05/22/2017 [facility] Saline Flush 0.9% Notes: (Same as: BD Posiflush) No Longer Active 05/22/2017 [facility] Acetaminophen Notes: Do not ex ceed 4 gm/day. (Same as: Tylenol) No Longer Active 05/22/2017 [facility] Docusate Notes: (Same as: Cola ce) (Do Not Crush) No Longer Active 05/22/2017 [facility] Ondansetron Notes: (Same as: Kory davis) MEDICATION WASTE Product Size: 4 mg Product Wasted: ___ mg No Longer Active 05/22/2017 [facility] Trazodone Notes: (Same As: Edson yrel) No Longer Active 05/22/2017 [facility] Maalox Advanced Regular Strength SUSP Notes: (aluminum hydroxide-magnesium hyd-simethicone [phone]/5ml 30 ml ud SOLITARIO) No Longer Active 05/22/2017 [facility] Hydralazine Notes: (Same as: A presoline) Push over 5 minutes No Longer Active 05/22/2017 [facility] Albuterol 0.833 MG/ML / Ipratropium Brom laila 0.167 MG/ML Inhalant Solution [DuoNeb] Notes: (Same as: Duoneb) No Longer Active 05/22/2017 [facility] Robitussin 100 mg/5 mL oral liquid Notes: (Same as: Robitussin) No Longer Active 05/22/2017 [facility] sodium chloride 0.45% 1000 ml INJ 1,000 mL 1,000 mL, Rate: 125 ml/hr, Infuse over: 8 hr, Route: IV, Dosing Weight 70.455 kg, Total Volume: 1,000, Start date: 05/22/17 4:52:00 CDT, Duration: 30 day, Stop date: 06/21/17 4:51:00 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 No Longer Active 05/22/2017 [facility] Dilaudid Notes: (Same as: Dila udid) No Longer Active 05/22/2017 [facility] Fentanyl 50 microgram, Route: IVP, ONCE, Dosing Weight 70.455, kg, Priority: STAT, Start date: 05/22/17 4:20:00 CDT, Stop date: 05/22/17 4:20:00 CDT Inactive 05/22/2017 [facility] Fentanyl 25 microgram, Route: IVP, ONCE, Dosing Weight 70.455, kg, Priority: STAT, Start date: 05/22/17 2:42:00 CDT, Stop date: 05/22/17 2:42:00 CDT Inactive 05/22/2017 [facility] meropenem Notes: (Same as: Sandy rem) . MEDICATION WASTE Product Size: 1000 mg Product Wasted: ___ mg Inactive 05/22/2017 [facility] NS (Bolus) IV 1,000 mL, 1,000 ml/hr, Infuse Over: 1 hr, Route: IV, ONCE, Priority: STAT, Dosing Weight 70.455 kg, Start date: 05/22/17 1:25:00 CDT, Duration: 1 doses or times, Stop date: 05/22/17 1:25:00 CDT Inactive 05/22/2017 [facility] Zofran 4 mg, Route: IVP, Drug form: INJ, ONCE, Dosing Weight 70.455, kg, Priority: STAT, Start date: 05/22/17 1:25:00 CDT, Stop date: 05/22/17 1:25:00 CDT Inactive 05/22/2017 [facility] Tylenol 975 mg, Route: PO, [place] g form: TAB, ONCE, Dosing Weight 70.455, kg, Priority: STAT, Start date: 05/22/17 1:24:00 CDT, Stop date: 05/22/17 1:24:00 CDT Inactive 05/22/2017 [facility] Alprazolam 2 MG Oral Tablet [Xanax] Notes: With food or milk (Same as: Xanax) No Longe r Active 03/07/2017 [facility] n[facility] remove patch Notes: Remove old patch before application of new patch. No Longer Active 03/07/2017 [facility] remove patch Notes: Remove old patch before application of new patch. No Longer Active 03/07/2017 [facility] pantoprazole 40 mg oral enteric coated tablet 40 mg = 1 tab, PO, Before Dinner, # 90 tab, 3 Refill(s) Active 03/06/2017 [facility] Folic Acid 1 MG Oral Tablet 1 mg = 1 tab, PO, Daily, # 90 tab, 3 Refill(s) Active 03/06/2017 [facility] ferrous sulfate 325 mg oral enteric coated tablet 325 mg = 1 tab, PO, Daily, # 90 tab, 3 Refill(s) Active 03/06/2017 [facility] amitriptyline 50 mg oral tablet 50 mg = 1 tab, PO, Bedtime, # 90 tab, 3 Refill(s) Active 03/06/2017 [facility] Docusate Sodium 100 MG Oral Capsule 100 mg = 1 cap, PO, BID, PRN Constipation, # 20 cap, 0 Refill(s) Active 03/06/2017 [facility] n[facility] minocycline 100 mg oral capsule 100 mg = 1 cap, PO, [id number], X 37 day, # 74 cap, 0 Refill(s) Active 03/06/2017 [facility] n[facility] metroNIDAZOLE 250 mg oral tablet 500 mg = 2 tab, PO, [id number], X 37 day, # 222 tab, 0 Refill(s) Active 03/06/2017 [facility] Lidocaine 0.05 MG/MG Transdermal Patch 1 patch, TOP, Q24H, # 90 patch, 3 Refill(s) Active 03/06/2017 [facility] melatonin 3 mg oral tablet 9 m g, PO, Bedtime, PRN as needed for insomnia, X 90 day, # 270 tab, 3 Refill(s) Active 03/06/2017 [facility] DULoxetine 60 mg oral delayed release capsule 60 mg = 1 cap, PO, Daily, # 90 cap, 3 Refill(s) Active 03/06/2017 [facility] ciprofloxacin 500 mg oral tablet 500 mg = 1 tab, PO, [id number], X 37 day, # 74 tab, 0 Refill(s) Active 03/06/2017 [facility] pregabalin 75 mg oral capsule 225 mg = 3 cap, PO, Q12H, # 540 cap, 3 Refill(s) Active 03/06/2017 [facility] carvedilol 3.125 mg oral tablet 3.125 mg = 1 tab, PO, BID-Meals, # 180 tab, 3 Refill(s) Active 03/06/2017 [facility] Alprazolam 0.5 MG Oral Tablet [Xanax] PO, Daily, 0 Refill(s) Active 03/06/2017 [facility] 24 HR Nicotine 0.583 MG/HR Transdermal Patch = 1 patch, TOP, Q24H, X 90 day, # 90 patch, 1 Refill(s) Active 03/06/2017 [facility] n[facility] senna 8.6 mg oral tablet 8.6 m g = 1 tab, PO, BID, PRN Constipation, X 90 day, # 180 tab, 3 Refill(s) Active 03/06/2017 [facility] n[facility] oxybutynin 5 mg oral tablet, extended release 15 mg = 3 tab, PO, BID, # 540 tab, 3 Refill(s) Active 03/06/2017 [facility] Alprazolam 2 MG Oral Tablet [Xanax] Notes: With food or milk (Same as: Xanax) No Longe r Active 03/05/2017 [facility] Alprazolam 2 MG Oral Tablet [Xanax] Notes: (Same as: Xanax) 0.125 mg = 1/2 x 0.25 mg TAB With food or milk Inactive 03/04/2017 [facility] Acetaminophen 325 MG / Hydrocodone Micheal trate 5 MG Oral Tablet [Boxford 5/325] Notes: (Same as: [place] 325/5) Do not ex ceed 4gm/day of acetaminophen. No Longer Activ e 03/04/2017 [facility] Acetaminophen 325 MG / Hydrocodone Micheal trate 5 MG Oral Tablet [[place]ford 5/325] 1 tab, Route: PO, Drug Form: TAB, Dosing Weight 67.273, kg, Q4H, PRN Pain Score 1-3, Start date: 03/04/17 16:29:00 CDT, Duration: 30 day, Stop date: 04/03/17 16:28:00 CDT Inactive 03/04/2017 [facility] Cymbalta Notes: (Same as: Cymb adarsh) (Do Not Crush) No Longer Active 03/04/2017 [facility] Fentanyl Notes: (Same as: Dura gesic) Check for product integrity. Apply to intact skin "Remove old patch before application of new patch" 1 patch delivers 12.5 micrograms Inactive 03/04/2017 [facility] nter 72 HR Fentanyl 0.075 MG/HR Transdermal Patch 1 patch, Route: TOP, Dosing Weight 68.182, kg, Q72H, Start date: 03/04/17 6:00:00 CDT, Duration: 30 day, Stop date: 03/31/17 6:00:00 CDT Inactive 03/04/2017 [facility] Fentanyl Notes: (Same as: Dura gesic) Check for product integrity. Apply to intact skin "Remove old patch before application of new patch" 1 patch delivers 12.5 micrograms No Longer Active 03/04/2017 [facility] n[facility] sennosides, FCI Notes: (Same a s: Senokot) No Longer Active 03/04/2017 [facility] sennosides, FCI 1 tab, Route: PO, Drug Form: TAB, Dosing Weight 68.182, kg, Daily, PRN Constipation, Start date: 03/03/17 22:26:00 CDT, Duration: 30 day, Stop date: 04/02/17 22:25:00 CDT Inactive 03/04/2017 [facility] n[facility] Tylenol Notes: Do not exceed 4 gm/day. (Same as: Tylenol) Inactive 03/04/2017 [facility] Levi packet Notes: (Same as: Levi Horsham) No Longer Active 03/03/2017 [facility] Beneprotein 7 gm pkt Notes: (S marva as: Beneprotein) No Longer Active 03/03/2017 [facility] Oxycontin Notes: Do not crush or chew. (Same as: OxyContin) No Longer Active 03/03/2017 [facility] pregabalin Notes: (Same as: Ly steve) No Longer Active 03/03/2017 [facility] Magnesium Sulfate Notes: WASTE : F/P - Sink; E - Municipal Trash Bin No Longer Active 03/02/2017 [facility] Oxycodone Hydrochloride 5 MG Oral Tablet Notes: (Same as: Roxicodone) No Longer Active 03/02/2017 [facility] n[facility] remove patch Notes: Remove pat ch 12 hours after application each day. No Longe r Active 03/02/2017 [facility] Melatonin 3 MG Extended Release Tablet Notes: (Same as: Melatonin) No Longer Active 03/02/2017 [facility] Oxycontin Notes: Do not crush or chew. (Same as: OxyContin) No Longer Active 03/02/2017 [facility] carvedilol Notes: Give with fo od. (Same As: Coreg) No Longer Active 03/01/2017 [facility] Lidocaine 0.05 MG/MG Transdermal Patch Notes: Apply only once for up to 12 hours in a 24-hour period (12 hours on and 12 hours off). (Same as: Lidoderm) "Remove old patch before application of new patch" No Longer Active 03/01/2017 [facility] Flexeril Notes: Same as Flexer il No Longer Active 03/01/2017 [facility] Oxycodone Hydrochloride 5 MG Oral Tablet Notes: (Same as: Roxicodone) No Longer Active 03/01/2017 [facility] n[facility] Habitrol Notes: (Same as: Roney montague) "Remove old patch before application of new patch" WASTE: F/P - P Waste Black; E - P Waste Black No Longer Active 03/01/2017 [facility] Nicotine 4 mg, Route: Dr francis BRYANT form: GUM, Q2H, Dosing Weight 68.182, kg, PRN as needed for smoking cessation, Priority: NOW, Start date: 03/01/17 9:01:00 CDT, Duration: 30 day, Stop date: 03/31/17 9:00:00 CDT Inactive 03/01/2017 [facility] Metronidazole Notes: (Same as: Flagyl) Take with food/ avoid alcohol No Longer Active 02/28/2017 [facility] Minocycline Notes: (Same as:Nadja nochoracio) No milk/antacids/iron. No Longer Active 02/28/2017 [facility]ter Ciprofloxacin Notes: May inter fere w/enteral feedings - Take 1 hr before or 2 hrs after antacids, dairy pdt & minerals. On empty stomach. No Longer Active 02/28/2017 [facility] Hepatitis A Vaccine, Inactivated Notes: (Same as: Havrix) Non-Formulary Drug. Inactive 02/28/2017 [facility] Amoxicillin 500 MG / Clavulanate 125 MG Oral Tablet [Augmentin 500-mg] Notes: With food. (Same as: Augmentin 50 0) Inactive 02/28/2017 [facility] Magnesium Sulfate Notes: WASTE : F/P - Sink; E - Municipal Trash Bin Inactive 02/28/2017 [facility] ertapenem Notes: (Same as: INV anz) Refrigerate. NOT COMPATIBLE WITH D5W. Stable in refrigerator for 24 hours MEDICATION WASTE Product Size: 1000 mg Product Wasted: ___ mg No Longer Active 02/28/2017 [facility] Hepatitis A Vaccine, Inactivated Notes: (Same as: Havrix) Non-Formulary Drug. Inactive 02/28/2017 [facility] Sulfamethoxazole 800 MG / Trimethoprim 1 60 MG Oral Tablet [Bactrim] Notes: One DS tablet = trimethoprim 160m g + sulfamethoxazole 800 mg Dose based on trimethoprim component On empty stomach with a glass of water. (Same As: Bactrim DS, Septra DS) Inactive 02/28/2017 [facility] n[facility] sodium chloride 0.9% 1000 ml INJ 1,000 mL 1,000 mL, Rate: 75 ml/hr, Infuse over: 13.3 hr, Route: IV, Dosing Weight 68.182 kg, Total Volume: 1,000, Start date: 02/28/17 8:55:00 CDT, Stop date: 03/30/17 8:54:00 CDT No Longer Active 02/28/2017 [facility] Oxycontin 30 mg, 2 tab, Route: PO, Drug form: ERTAB, Q12H, Dosing Weight 68.182, kg, Start date: 02/27/17 21:00:00 CDT, Duration: 30 day, Stop date: 03/29/17 9:00:00 CDT No Longer Active 02/28/2017 [facility] Dilaudid 1 mg, Route: IVP, ONC E, Dosing Weight 68.182, kg, Priority: STAT, Start date: 02/27/17 20:39:00 CDT, Stop date: 02/27/17 20:39:00 CDT Inactive 02/28/2017 [facility] Dilaudid 1 mg, Route: IVP, ONC E, Dosing Weight 68.182, kg, Priority: STAT, Start date: 02/27/17 19:36:00 CDT, Stop date: 02/27/17 19:36:00 CDT Inactive 02/28/2017 [facility] Oxycodone Hydrochloride 5 MG Oral Tablet Notes: (Same as: Roxicodone) No Longer Active 02/27/2017 [facility] potassium phosphate-sodium phosphate 250 mg-280 mg-160 mg oral powder for reconstitution 1 pkt, Route: PO, Drug Form: PDR/REC, Dosing Weight 68.182, kg, ONCE, Start date: 02/27/17 14:58:00 CDT, Stop date: 02/27/17 14:58:00 CDT Inactive 02/27/2017 [facility] Tums Notes: (Same As: Tums) Ca lcium Carbonate 500 mg = 200 mg elemental calcium Dose = mg calcium carbonate ( mg elemental calcium) No Longer Active 02/27/2017 [facility] Ditropan XL Notes: (Same as: D itropan XL) "Do Not Crush" No Longer Active 02/27/2017 [facility] Amitriptyline Notes: (Same as: Elavil) No Longer Active 02/27/2017 [facility] Amikacin Notes: TIME CRITICAL MEDICATION (Same as: Amikin) MEDICATION WASTE Product Size: 500 mg Product Wasted: _0__ mg No Longer Active 02/26/2017 [facility] Acetaminophen 325 MG / Hydrocodone Micheal trate 10 MG Oral Tablet [Boxford 10/325] Notes: Do not exceed 4gm/day of acetamin ophen. (Same as: Boxford 325/10) No Longer Active 02/26/2017 [facility] Magnesium Oxide Notes: (Same a s: Mag-Ox 400) Magnesium oxide [id number] elemental magnesium Dose=____mg magnesium oxide (___mg elemental magnesium) Inactive 02/26/2017 [facility] MAGNESIUM GLUCONATE Notes: (Sa me as: [place]) Magnesium gluconate 500mg=27mg elemental magnesium Dose= mg magnesium gluconate(___mg elemental magnesium) Inactive 02/26/2017 [facility] Benadryl Notes: (Same as: Newton dryl) Inactive 02/26/2017 [facility] Morphine Sulfate 15 MG Oral Tablet Notes: (Same as:MORPhine Sulfate) Inactive 02/26/2017 [facility] Morphine 4 mg, Route: IVP, ONC E, Dosing Weight 68.182, kg, Start date: 02/25/17 20:58:00 CDT, Stop date: 02/25/17 20:58:00 CDT Inactive 02/26/2017 [facility] meropenem Notes: (Same as: Sandy rem) . MEDICATION WASTE Product Size: 1000 mg Product Wasted: ___ mg No Longer Active 02/25/2017 [facility] Amikacin 1,022.73 mg, Route: I V, ONCE, Dosing Weight 68.182, kg, Start date: 02/25/17 10:48:00 CDT, Stop date: 02/25/17 10:48:00 CDT Inactive 02/25/2017 [facility] Saline Flush 0.9% Notes: (Same as: BD Posiflush) No Longer Active 02/25/2017 [facility] Lidocaine Hydrochloride 10 MG/ML Injectable Solution Notes: (Same as: Xylocaine) No Longer Active 02/25/2017 [facility] Saline Flush 0.9% Notes: (Same as: BD Posiflush) No Longer Active 02/25/2017 [facility] pantoprazole Notes: Tablet miles uld not be chewed or crushed. (Same as: Protonix) N o Longer Active 02/24/2017 [facility] Docusate Notes: (Same as: Cola ce) (Do Not Crush) No Longer Active 02/24/2017 [facility] pregabalin Notes: (Same as: Ly steve) No Longer Active 02/24/2017 [facility] POLYETHYLENE GLYCOL 3350 Notes : Dissolve in 8 oz of water or juice. (Same as: Miralax) No Longer Active 02/24/2017 [facility] Folic Acid Notes: (Same as: Fo lvite) No Longer Active 02/24/2017 [facility] Alprazolam 2 MG Oral Tablet [Xanax] Notes: With food or milk (Same as: Xanax) No Longe r Active 02/24/2017 [facility] heparin sodium, porcine 2500 UNT/ML Injectable Solutio n Notes: porcine heparin No Longer Active 02/24/2017 [facility] ferrous sulfate Notes: Give wi th food. "Do Not Crush" No Longer Active 02/24/2017 [facility] carvedilol Notes: Give with fo od. (Same As: Coreg) No Longer Active 02/24/2017 [facility] Vancomycin 2001 mg: infuse ov er 2.5 hours MEDICATION WASTE Product Size: 1000 mg Product Wasted: ___ mg No Longer Active 02/24/2017 [facility] Piperacillin / tazobactam Note s: (Same as: Zosyn) Dosing based on Piperacillin component MEDICATION WASTE Product Size: 3375 mg Product Wasted: ___ mg No Longer Active 02/24/2017 [facility] Flexeril Notes: (Same As: Flex eril) No Longer Active 02/24/2017 [facility] Acetaminophen 325 MG / Hydrocodone Micheal trate 10 MG Oral Tablet [Boxford 10/325] Notes: Do not exceed 4gm/day of acetamin ophen. (Same as: Boxford 325/10) No Longer Active 02/24/2017 [facility] sodium chloride 0.9% 1000 ml INJ 1,000 mL 1,000 mL, Rate: 125 ml/hr, Infuse over: 8 hr, Route: IV, Dosing Weight 65.909 kg, Total Volume: 1,000, Start date: 02/23/17 22:36:00 CDT, Stop date: 03/26/17 22:35:00 CDT No Longer Active 02/24/2017 [facility] Ondansetron Notes: (Same as: Kory davis) MEDICATION WASTE Product Size: 4 mg Product Wasted: ___ mg No Longer Active 02/24/2017 [facility] iodixanol 86 mL, Route: IVP, D rug Form: SOLN, Dosing Weight 65.909, kg, ONCALL, STAT, Start date: 02/23/17 16:40:00 CDT, Duration: 1 doses or times, Dose = 2.2ml/kg, Max dose = 100ml -- "To be infused by Radi ology Staff ONLY" Inactive 02/23/2017 [facility] Fentanyl Notes: (Same as: Subl imaze) Preservative free. Inactive 02/23/2017 [facility] Sodium Chloride 0.9% (Bolus) IV 1,977.27 mL, 1977.27 ml/hr, Infuse Over: 1 hr, Route: IV, 1,977.27, Drug form: INJ, ONCE, Priority: STAT, Dosing Weight 65.909 kg, Start date: 02/23/17 14:52:00 CDT, Duration: 1 doses or times, Stop date: 02/23/17 14:52:00 CDT, Sepsis dose. Inactive 02/23/2017 [facility] cefepime Notes: (Same as: Franco guaman) MEDICATION WASTE Product Size: 2000 mg Product Wasted: ___ mg Inactive 02/23/2017 [facility] Vancomycin 2001 mg: infuse ov er 2.5 hours MEDICATION WASTE Product Size: 1000 mg Product Wasted: ___ mg Inactive 02/23/2017 [facility] Methadone Notes: (Same as: Hao espinozaine) Inactive 01/21/2017 [facility] Ciprofloxacin 500 MG Oral Tablet [Cipro] 500 mg = 1 tab, PO, Q12H, X 7 day, # 14 tab, 0 Refill(s) Active 01/20/2017 [facility] Dilaudid 1 mg, 1 mL, Route: IV P, Drug form: INJ, Q4H, Dosing Weight 70.455, kg, PRN Pain Score 7-10, Start date: 01/20/17 10:08:00 CDT, Duration: 30 day, Stop date: 02/19/17 10:07:00 CDT Inactive 01/20/2017 [facility] Dilaudid 1 mg, 1 mL, Route: IV P, Drug form: INJ, Q3H, Dosing Weight 70.455, kg, PRN Pain Score 7-10, Start date: 01/19/17 15:23:00 CDT, Duration: 30 day, Stop date: 02/18/17 15:22:00 CDT No Longer Active 01/19/2017 [facility] oxyCODONE 5 mg oral tablet Not es: (Same as: Roxicodone) No Longer Active 01/18/2017 [facility] Hydromorphone 0.5 mg, 0.5 mL, Route: IV, Drug form: INJ, Q6H, Dosing Weight 70.455, kg, PRN Pain Score 7-10, Start date: 01/18/17 10:36:00 CDT, Stop date: 02/17/17 10:35:00 CDT No Longer Active 01/18/2017 [facility] Ditropan XL Notes: (Same as: D itropan XL) "Do Not Crush" No Longer Active 01/18/2017 [facility] Beneprotein 7 gm pkt Notes: (S marva as: Beneprotein) No Longer Active 01/17/2017 [facility] Levi packet Notes: (Same as: Levi Horsham) No Longer Active 01/17/2017 [facility] pantoprazole Notes: Tablet miles uld not be chewed or crushed. (Same as: Protonix) N o Longer Active 01/17/2017 [facility] Folic Acid Notes: (Same as: Fo lvite) No Longer Active 01/17/2017 [facility] Alprazolam 2 MG Oral Tablet [Xanax] Notes: With food or milk (Same as: Xanax) No Longe r Active 01/17/2017 [facility] tolterodine Notes: Non-Formula ry Do Not Crush. (Same As: Detrol LA) Inactive 01/17/2017 [facility] tizanidine Notes: (Same As: Za naflex) No Longer Active 01/17/2017 [facility] pregabalin Notes: (Same as: Ly steve) No Longer Active 01/17/2017 [facility] POLYETHYLENE GLYCOL 3350 Notes : Dissolve in 8 oz of water or juice. (Same as: Miralax) No Longer Active 01/17/2017 [facility] Amitriptyline Notes: (Same as: Elavil) No Longer Active 01/17/2017 [facility] carvedilol Notes: Give with fo od. (Same As: Coreg) No Longer Active 01/17/2017 [facility] Docusate Sodium 100 MG Oral Capsule Notes: (Same as: Colace) (Do Not Crush) No Longer Active 01/16/2017 [facility] Zofran Notes: (Same as: Zofran ) MEDICATION WASTE Product Size: 4 mg Product Wasted: ___ mg No Longer Active 01/16/2017 [facility] Alprazolam 2 MG Oral Tablet [Xanax] 2 mg = 1 tab, PO, BID, # 20 tab, 0 Refill(s) Active 01/16/2017 [facility] Zosyn Notes: (Same as: Zosyn) Dosing based on Piperacillin component MEDICATION WASTE Product Size: 3375 mg Product Wasted: ___ mg No Longer Active 01/16/2017 [facility] Acetaminophen 325 MG / Hydrocodone Micheal trate 5 MG Oral Tablet [[place] 5/325] Notes: (Same as: [place] 325/5) Do not ex ceed 4gm/day of acetaminophen. No Longer Activ e 01/16/2017 [facility] Saline Flush 0.9% Notes: (Same as: BD Posiflush) No Longer Active 01/16/2017 [facility] Sodium Chloride 0.154 MEQ/ML Injectable Solution 1,000 mL, Rate: 125 ml/hr, Infuse over: 8 hr, Route: IV, Dosing Weight 70.455 kg, Total Volume: 1,000, Start date: 01/16/17 5:18:00 CDT, Duration: 30 day, Stop date: 02/15/17 5:17:00 CDT No Longer Active 01/16/2017 [facility] Acetaminophen Notes: Do not ex ceed 4 gm/day. (Same as: Tylenol) No Longer Active 01/16/2017 [facility] Zosyn 3.375 gm, Route: IVPB, O NCE, Dosing Weight 70.455, kg, Priority: STAT, Start date: 01/16/17 0:45:00 CDT, Duration: 1 doses or times, Stop date: 01/16/17 0:45:00 CDT, ABX Indication: Genital Tract Infection Inactive 01/16/2017 [facility] Dilaudid 1 mg, Route: IVP, ONC E, Dosing Weight 70.455, kg, Priority: STAT, Start date: 01/15/17 23:45:00 CDT, Stop date: 01/15/17 23:45:00 CDT No Longer Active 01/16/2017 [facility] Zofran 4 mg, Route: IVP, Drug form: INJ, ONCE, Dosing Weight 70.455, kg, Priority: STAT, Start date: 01/15/17 23:45:00 CDT, Stop date: 01/15/17 23:45:00 CDT No Longe r Active 01/16/2017 [facility] Sodium Chloride 0.154 MEQ/ML Injectable Solution 1,000 mL, 1,000 ml/hr, Infuse Over: 1 hr, Route: IV, ONCE, Priority: STAT, Dosing Weight 70.455 kg, Start date: 01/15/17 23:44:00 CDT, Duration: 1 doses or times, Stop date: 01/15/17 23:44:00 CDT No Longer Active 01/16/2017 [facility] Saline Flush 0.9% Notes: (Same as: BD Posiflush) No Longer Active 01/16/2017 [facility] pregabalin 150 mg oral capsule 150 mg = 1 cap, PO, BID, # 60 cap, 0 Refill(s) Active 01/04/2017 [facility] pantoprazole 40 mg oral enteric coated tablet 40 mg = 1 tab, PO, Before Dinner, # 90 tab, 0 Refill(s) Active 01/04/2017 [facility] Ondansetron 4 MG Disintegrating Tablet [Zofran] 4 mg = 1 tab, PO, BID, PRN Nausea and Vomiting, Dissolve tab under tongue, X 5 day, # 10 tab, 0 Refill(s) Active 01/04/2017 [facility] Folic Acid 1 MG Oral Tablet 1 mg = 1 tab, PO, Daily, # 30 tab, 0 Refill(s) Active 01/04/2017 [facility] ferrous sulfate 325 mg oral enteric coated tablet 325 mg = 1 tab, PO, Daily, # 30 tab, 0 Refill(s) Active 01/04/2017 [facility] Docusate Sodium 100 MG Oral Capsule 100 mg = 1 cap, PO, BID, PRN Constipation, # 20 cap, 0 Refill(s) Active 01/04/2017 [facility] carvedilol 6.25 mg oral tablet 6.25 mg = 1 tab, PO, BID, # 180 tab, 3 Refill(s) Active 01/04/2017 [facility] amitriptyline 50 mg oral tablet 50 mg = 1 tab, PO, Bedtime, # 14 tab, 0 Refill(s) Active 01/04/2017 [facility] n[facility] tolterodine 4 mg oral capsule, extended release 4 mg = 1 cap, PO, Daily, # 30 cap, 0 Refill(s) Active 01/04/2017 [facility] tizanidine 4 mg oral capsule 4 mg = 1 cap, PO, TID, # 90 cap, 0 Refill(s) Active 01/04/2017 [facility] Amitriptyline Notes: (Same as: Elavil) No Longer Active 01/03/2017 [facility] Santyl Notes: (Same As: Santyl) No Longer Active 01/02/2017 [facility] pantoprazole Notes: Tablet miles uld not be chewed or crushed. (Same as: Protonix) N o Longer Active 01/02/2017 [facility] nt tolterodine 4 mg, Route: PO, D rug form: CAP, Daily, Dosing Weight 84.545, kg, Start date: 01/02/17 9:00:00 CDT, Duration: 30 day, Stop date: 01/31/17 9:00:00 CDT Inactive 01/02/2017 [facility] tizanidine Notes: (Same As: Za naflex) No Longer Active 01/02/2017 [facility] POLYETHYLENE GLYCOL 3350 Notes : Dissolve in 8 oz of water or juice. (Same as: Miralax) No Longer Active 01/02/2017 [facility] pregabalin Notes: (Same as: Ly steve) No Longer Active 01/02/2017 [facility] Folic Acid Notes: (Same as: Fo lvite) No Longer Active 01/02/2017 [facility] ferrous sulfate Notes: Give wi th food. "Do Not Crush" No Longer Active 01/02/2017 [facility] carvedilol Notes: Give with fo od. (Same As: Coreg) No Longer Active 01/02/2017 [facility] heparin Notes: porcine heparin No Longer Active 01/02/2017 [facility] Ditropan XL Notes: (Same as: D itropan XL) "Do Not Crush" No Longer Active 01/02/2017 [facility] Docusate Notes: (Same as: Cola ce) (Do Not Crush) No Longer Active 01/02/2017 [facility] Morphine Notes: (Same as:MORPh ine Sulfate) Inactive 01/02/2017 [facility] Ceftazidime Notes: Non-Formula ry Drug (Same as: Fortaz) MEDICATION WASTE Product Size: 1000 mg Product Wasted: 0 mg No Longer Active 01/02/2017 [facility] meropenem Notes: Same as Barak jamil MEDICATION WASTE Product Size: 500 mg Product Wasted: ___ mg Inactive 01/02/2017 [facility] Sodium Chloride 0.154 MEQ/ML Injectable Solution 1,000 mL, Rate: 100 ml/hr, Infuse over: 10 hr, Route: IV, Dosing Weight 72.727 kg, Total Volume: 1,000, Start date: 01/02/17 0:45:00 CDT, Stop date: 02/01/17 0:44:00 CDT No Longer Active 01/02/2017 [facility] Saline Flush 0.9% Notes: (Same as: BD Posiflush) No Longer Active 01/02/2017 [facility] Ondansetron Notes: (Same as: Kory davis) MEDICATION WASTE Product Size: 4 mg Product Wasted: 0 mg No Longer Active 01/02/2017 [facility] Acetaminophen 325 MG / Hydrocodone Micheal trate 5 MG Oral Tablet Notes: (Same as: [place] 325/5) Do not ex ceed 4gm/day of acetaminophen. No Longer Active 01/02/2017 [facility] Acetaminophen Notes: Do not ex ceed 4 gm/day. (Same as: Tylenol) No Longer Active 01/02/2017 [facility] Flagyl Notes: (Same as: Flagyl ) Take with food/ avoid alcohol No Longer Active 01/02/2017 [facility] cefepime Notes: (Same As: Franco guaman) MEDICATION WASTE Product Size: 1000 mg Product Wasted: 0 mg No Longer Active 01/02/2017 [facility] Vancomycin 2001 mg: infuse ov er 2.5 hours MEDICATION WASTE Product Size: 1000 mg Product Wasted: 0 mg No Longer Active 01/02/2017 [facility] carvedilol 6.25 mg oral tablet 6.25 mg = 1 tab, PO, BID, # 180 tab, 3 Refill(s) No Longer Active 01/02/2017 [facility] Ondansetron 4 MG Disintegrating Tablet [Zofran] 4 mg = 1 tab, PO, BID, PRN Nausea and Vomiting, Dissolve tab under tongue, X 5 day, # 10 tab, 0 Refill(s) No Longer Active 01/02/2017 [facility] carvedilol Notes: (Same As: Co reg) No Longer Active 01/02/2017 [facility] Sodium Chloride 0.154 MEQ/ML Injectable Solution 1,000 mL, 1000 ml/hr, Infuse Over: 1 hr, Route: IV, 1,000, Drug form: INJ, ONCE, Priority: STAT, Dosing Weight 72.727 kg, Start date: 01/01/17 20:48:00 CDT, Duration: 1 doses or times, Stop date: 01/01/17 20:48:00 CDT Inactive 01/02/2017 [facility] Ondansetron Notes: (Same as: Kory davis) MEDICATION WASTE Product Size: 4 mg Product Wasted: __0_ mg Inactive 01/02/2017 [facility] Hydromorphone Notes: Same as: Dilaudid Inactive 01/02/2017 [facility] Sodium Chloride 0.154 MEQ/ML Injectable Solution 1,000 mL, Infuse Over: 1 hr, Route: IV, ONCE, Priority: STAT, Dosing Weight 72.727 kg, Start date: 01/01/17 17:26:00 CDT, Duration: 1 doses or times, Stop date: 01/01/17 17:26:00 CDT Inactive 01/01/2017 [facility] Acetaminophen 325 MG / Oxycodone Hydroch loride 10 MG Oral Tablet [Percocet 10/325] See Instructions, 1 tab PO TID PRN PAIN, # 15 tab, 0 Refill(s), other Inactive 12/25/2016 [facility] Acetaminophen 325 MG / Hydrocodone Micheal trate 5 MG Oral Tablet [[place] 5/325] Notes: (Same as: [place] 325/5) Do not ex ceed 4gm/day of acetaminophen. Inactive 12/25/2016 [facility] Alprazolam 0.5 MG Oral Tablet 0.5 mg = 1 tab, PO, BID, PRN anxiety, stress, X 7 day, # 14 tab, 0 Refill(s) Active 12/25/2016 [facility] tolterodine 4 mg oral capsule, extended release 4 mg = 1 cap, PO, Daily, # 30 cap, 0 Refill(s) Active 12/25/2016 [facility] Magnesium Sulfate Notes: WASTE : F/P - Sink; E - Municipal Trash Bin Inactive 12/24/2016 [facility] Levi 24 gm packet Notes: (Corey e as: Levi Horsham) No Longer Active 12/23/2016 [facility] Ceftazidime Notes: Non-Formula ry Drug (Same as: Fortaz) MEDICATION WASTE Product Size: 1000 mg Product Wasted: ___ mg No Longer Active 12/23/2016 [facility] Dilaudid 1 mg, 1 mL, Route: IV P, Drug form: INJ, Q4H, Dosing Weight 75.545, kg, PRN Pain Score 7-10, Start date: 12/22/16 20:37:00 CDT, Stop date: 01/21/17 20:36:00 CDT No Longer Active 12/23/2016 [facility] Florinef Acetate Notes: (Same as: Florinef Acetate) Give with food. Inactive 12/22/2016 [facility] pregabalin Notes: Same as Lyri ca No Longer Active 12/22/2016 [facility] Dilaudid 0.5 mg, 0.5 mL, Route : IVP, Drug form: INJ, ONCE, Dosing Weight 75.545, kg, Start date: 12/21/16 20:34:00 CDT, Stop date: 12/21/16 20:34:00 CDT Inactive 12/22/2016 [facility] Maxipime + sodium chloride 0.9% INJ 100 mL 1 gm, Route: IVPB, [id number], Start date: 12/21/16 17:00:00 CDT, Duration: 30 day, Stop date: 01/20/17 5:00:00 CDT, ABX Indication: Urinary Tract Infection No Longer Active 12/21/2016 [facility] Insulin regular Notes: (Same a s: Humulin R and NovoLIN R) WASTE: F/P - Black; E - Municipal Trash Bin (Do not shake) Inactive 12/21/2016 [facility] d50 syringe 1 amp, Route: IV, Drug Form: INJ, Dosing Weight 75.545, kg, ONCE, Start date: 12/21/16 16:31:00 CDT, Stop date: 12/21/16 16:31:00 CDT Inactive 12/21/2016 [facility] Albuterol 0.417 MG/ML Inhalant Solution Notes: SEE RT DOCUMENTATION (Same as: Proventil) No Longer Active 12/21/2016 [facility] alteplase 2 mg injection Notes : "Syringe for catheter clearance or interventional radiology use. Reconstitute each vial of Cathflo Activase with 2.2 ml Sterile Water resulting in a 1 mg/ml solution. (Same as: Activase) MEDICATION WASTE Product Size: 2 mg Product Wasted: ___ mg Inactive 12/21/2016 [facility] Ceftazidime 2 gm, Route: IVPB, [id number], Dosing Weight 75.545, kg, Start date: 12/21/16 16:00:00 CDT, Duration: 30 day, Stop date: 01/20/17 4:00:00 CDT Inactive 12/21/2016 [facility] Florinef Acetate Notes: (Same as: Florinef Acetate) Give with food. Inactive 12/21/2016 [facility] Albuterol 0.83 MG/ML Inhalant Solution Notes: SEE RT DOCUMENTATION (Same as: Proventil) Inactive 12/21/2016 [facility] Dextrose 50% Syringe 25 gm, 50 mL, Route: IVP, Drug Form: INJ, Dosing Weight 75.545, kg, ONCE, Start date: 12/21/16 12:47:00 CDT, Stop date: 12/21/16 12:47:00 CDT Inactive 12/21/2016 [facility] Insulin regular Notes: (Same a s: NovoLIN R) WASTE: F/P - Black; E - Municipal Trash Bin (Do not shake) Inactive 12/21/2016 [facility] Calcium Gluconate Notes: WASTE : F/P - Sink; E - Municipal Trash Bin Inactive 12/21/2016 [facility] Coreg Notes: Give with food. ( Same As: Coreg) No Longer Active 12/21/2016 [facility] Magnesium Sulfate Notes: WASTE : F/P - Sink; E - Municipal Trash Bin Inactive 12/21/2016 [facility] Lasix Notes: (Same as: Lasix) MEDICATION WASTE Product Size: 40 mg Product Wasted: ___ mg Inactive 12/20/2016 [facility] Sodium Chloride 0.154 MEQ/ML Injectable Solution 1,000 mL, Rate: 100 ml/hr, Infuse over: 10 hr, Route: IV, Dosing Weight 75.545 kg, Total Volume: 1,000, Start date: 12/20/16 14:25:00 CDT, Stop date: 01/19/17 14:24:00 CDT No Longer Active 12/20/2016 [facility] RN-Do not give Vanc till trough drawn 12/20/16 @ 11:30 RN-Do not give Vanc till trough drawn 12/20/16 @ 11:30, Attn:RN, Drug form: MISC, Route: MISC, ONCE, 12/20/16 11:00:00 CDT, Stop date: 12/20/16 11:00:00 CDT Inactive 12/20/2016 [facility] Magnesium Sulfate Notes: WASTE : F/P - Sink; E - Municipal Trash Bin Inactive 12/20/2016 [facility] Albuterol 0.417 MG/ML Inhalant Solution Notes: SEE RT DOCUMENTATION (Same as: Proventil) Inactive 12/20/2016 [facility] Kayexalate Notes: (sodium poly styrene sulfonate 15 gm/60 ml SOLITARIO) Shake well before use. (Same as: Kayexalate, SPS) Inactive 12/20/2016 [facility] Morphine Notes: (Same as:MORPh ine Sulfate) No Longer Active 12/20/2016 [facility] Dilaudid 1 mg, 1 mL, Route: IV P, Drug form: INJ, ONCE, Dosing Weight 75.545, kg, Priority: STAT, Start date: 12/19/16 21:19:00 CDT, Stop date: 12/19/16 21:19:00 CDT Inactive 12/20/2016 [facility] carvedilol Notes: Give with fo od. (Same As: Coreg) No Longer Active 12/20/2016 [facility] Dilaudid Notes: (Same as: Dila udid) No Longer Active 12/19/2016 [facility] Cathflo Activase 2 mg injection Notes: "Syringe for catheter clearance or interventional radiology use. Reconstitute each vial of Cathflo Activase with 2.2 ml Sterile Water resulting in a 1 mg/ml solution. (Same as: Activase) MEDICATION WASTE Product Size: 2 mg Product Wasted: ___ mg No Longer Active 12/19/2016 [facility] Cathflo Activase 2 mg injection Notes: "Syringe for catheter clearance or interventional radiology use. Reconstitute each vial of Cathflo Activase with 2.2 ml Sterile Water resulting in a 1 mg/ml solution. (Same as: Activase) MEDICATION WASTE Product Size: 2 mg Product Wasted: ___ mg Inactive 12/19/2016 [facility] sodium chloride 0.9% 1000 ml INJ 1,000 mL 1,000 mL, Rate: 1,000 ml/hr, Infuse over: 1 hr, Route: IV, Dosing Weight 75.545 kg, Total Volume: 1,000, Start date: 12/18/16 17:13:00 CDT, Duration: 1 hr, Stop date: 12/18/16 18:12:00 CDT Inactive 12/18/2016 [facility] colistimethate + sodium chloride 0.9% INJ 100 mL Notes: (Same As: Coly-Mycin) No Longe r Active 12/18/2016 [facility] Enoxaparin Notes: (Same as: Lo venox) No Longer Active 12/18/2016 [facility] Magnesium Oxide Notes: (Same a s: Mag-Ox 400) Magnesium oxide [id number] elemental magnesium Dose=____mg magnesium oxide (___mg elemental magnesium) No Longer Active 12/18/2016 [facility] Kayexalate Notes: (sodium poly styrene sulfonate 15 gm/60 ml SOLITARIO) Shake well before use. (Same as: Kayexalate, SPS) Inactive 12/18/2016 [facility] colistimethate + sodium chloride 0.9% INJ 100 mL Notes: (Same As: Coly-Mycin) Inactive 12/18/2016 [facility] meropenem Notes: Same as Barak jamil MEDICATION WASTE Product Size: 500 mg Product Wasted: ___ mg No Longer Active 12/18/2016 [facility] Vancomycin 2001 mg: infuse ov er 2.5 hours MEDICATION WASTE Product Size: 1000 mg Product Wasted: ___ mg No Longer Active 12/18/2016 [facility] Sodium Chloride 0.154 MEQ/ML Injectable Solution 500 mL, 500 ml/hr, Infuse Over: 1 hr, Route: IV, ONCE, Priority: STAT, Dosing Weight 75.545 kg, Start date: 12/17/16 23:17:00 CDT, Duration: 1 doses or times, Stop date: 12/17/16 23:17:00 CDT Inactive 12/18/2016 [facility] NovoLIN R Notes: (Same as: Hum ulin R and NovoLIN R) WASTE: F/P - Black; E - Municipal Trash Bin (Do not shake) Inactive 12/17/2016 [facility] Insulin regular Notes: (Same a s: Humulin R and NovoLIN R) WASTE: F/P - Black; E - Municipal Trash Bin (Do not shake) Inactive 12/17/2016 [facility] d50 syringe 25 gm, 50 mL, Rout e: IV, Drug Form: INJ, Dosing Weight 75.545, kg, ONCE, Start date: 12/17/16 14:10:00 CDT, Stop date: 12/17/16 14:10:00 CDT Inactive 12/17/2016 [facility] Kayexalate Notes: (sodium poly styrene sulfonate 15 gm/60 ml SOLITARIO) Shake well before use. (Same as: Kayexalate, SPS) Inactive 12/17/2016 [facility] Albuterol 0.83 MG/ML Inhalant Solution Notes: SEE RT DOCUMENTATION (Same as: Proventil) Inactive 12/17/2016 [facility] Coreg Notes: Give with food. ( Same As: Coreg) Inactive 12/17/2016 [facility] Lasix Notes: (Same as: Lasix) MEDICATION WASTE Product Size: 40 mg Product Wasted: ___ mg Inactive 12/17/2016 [facility] Valium Notes: (Same as: Valium ) WASTE: F/P - Black; E - White/Blue Inactive 12/17/2016 [facility] Kayexalate Notes: (sodium poly styrene sulfonate 15 gm/60 ml SOLITARIO) Shake well before use. (Same as: RICK Desai) Inactive 12/17/2016 [facility] sodium bicarbonate 8.4% Notes: (sodium bicarb 8.4% (1 mEq/ml) 50 ml syringe) Inactiv e 12/17/2016 [facility] Albuterol 0.83 MG/ML Inhalant Solution Notes: SEE RT DOCUMENTATION (Same as: Proventil) Inactive 12/17/2016 [facility] Sodium polystyrene sulfonate N otes: (sodium polystyrene sulfonate 15 gm/60 ml SOLITARIO) Shake well before use. (Same as: RICK Desai) Inactive 12/17/2016 [facility] Magnesium Sulfate Notes: WASTE : F/P - Sink; E - Municipal Trash Bin Inactive 12/16/2016 [facility] Albuterol 0.83 MG/ML Inhalant Solution Notes: SEE RT DOCUMENTATION (Same as: Proventil) Inactive 12/16/2016 [facility] Insulin regular Notes: (Same a s: Humulin R and NovoLIN R) WASTE: F/P - Black; E - Municipal Trash Bin (Do not shake) Inactive 12/16/2016 [facility] Dextrose 50% Syringe 25 gm, 50 mL, Route: IVP, Drug Form: INJ, Dosing Weight 75.545, kg, ONCE, Start date: 12/16/16 15:27:00 CDT, Stop date: 12/16/16 15:27:00 CDT Inactive 12/16/2016 [facility] Calcium Gluconate Notes: WASTE : F/P - Sink; E - Municipal Trash Bin Inactive 12/16/2016 [facility] Sodium polystyrene sulfonate N otes: (sodium polystyrene sulfonate 15 gm/60 ml SOLITARIO) Shake well before use. (Same as: RICK Desai) Inactive 12/16/2016 [facility] Cathflo Activase 2 mg injection Notes: "Syringe for catheter clearance or interventional radiology use. Reconstitute each vial of Cathflo Activase with 2.2 ml Sterile Water resulting in a 1 mg/ml solution. (Same as: Activase) MEDICATION WASTE Product Size: 2 mg Product Wasted: ___ mg Inactive 12/16/2016 [facility] Albuterol 0.833 MG/ML / Ipratropium Brom laila 0.167 MG/ML Inhalant Solution [DuoNeb] Notes: (Same as: Duoneb) No Longer Active 12/15/2016 [facility] sodium phosphate + D5W 250 mL 30 mmol, 10 mL, Route: IVPB, ONCE, Dosing Weight 75.545, kg, Start date: 12/14/16 9:19:00 CDT, Stop date: 12/14/16 9:19:00 CDT Inactive 12/14/2016 [facility] Magnesium Sulfate Notes: WASTE : F/P - Sink; E - Municipal Trash Bin Inactive 12/14/2016 [facility] Tobramycin Notes: TIME CRITICA L MEDICATION (Same As: Nebcin) No Longer Active 12/13/2016 [facility] Dilaudid 1 mg, 1 mL, Route: IV P, Drug form: INJ, Q4H, Dosing Weight 75.545, kg, PRN Pain Score 7-10, Start date: 12/13/16 10:43:00 CDT, Duration: 30 day, Stop date: 01/12/17 10:42:00 CDT No Longer Active 12/13/2016 [facility] Magnesium Sulfate Notes: WASTE : F/P - Sink; E - Municipal Trash Bin Inactive 12/13/2016 [facility] "Restore" Hydrogel topical gel "Restore" Hydrogel topical gel, 1 appl, Drug form: MISC, Route: TOP, Daily, 12/13/16 9:00:00 CDT, Duration: 30 day, Stop date: 01/11/17 9:00:00 CDT No Longer Active 12/13/2016 [facility] Restore Hydrogel topical gel 1 appl, Route: TOP, Dosing Weight 75.545, kg, Daily, Start date: 12/13/16 9:00:00 CDT, Duration: 30 day, Stop date: 01/11/17 9:00:00 CDT No Longer Active 12/13/2016 [facility] Saline Flush 0.9% Notes: (Same as: BD Posiflush) No Longer Active 12/13/2016 [facility] Lidocaine Hydrochloride 10 MG/ML Injectable Solution Notes: (Same as: Xylocaine) No Longer Active 12/13/2016 [facility] Saline Flush 0.9% Notes: (Same as: BD Posiflush) No Longer Active 12/12/2016 [facility] sodium phosphate + D5W 240 mL 30 mmol, 10 mL, Route: IVPB, ONCE, Dosing Weight 75.545, kg, Start date: 12/12/16 9:18:00 CDT, Stop date: 12/12/16 9:18:00 CDT Inactive 12/12/2016 [facility] Magnesium Sulfate Notes: WASTE : F/P - Sink; E - Municipal Trash Bin Inactive 12/12/2016 [facility] Detrol LA Notes: Non-Formulary Do Not Crush. (Same As: Detrol LA) No Longer Active 12/12/2016 [facility] Hydralazine Notes: (Same as: A presoline) Push over 5 minutes No Longer Active 12/12/2016 [facility] Tobramycin Notes: TIME CRITICA L MEDICATION (Same As: Nebcin) No Longer Active 12/11/2016 [facility] Tobramycin 1 ea, Route: MISC, Dosing Weight 75.545, kg, ONCALL, Start date: 12/11/16 12:00:00 CDT, Duration: 1 doses or times, Pharmacy to dose Inactive 12/11/2016 [facility] Tylenol Notes: Do not exceed 4 gm/day. (Same as: Tylenol) No Longer Active 12/11/2016 [facility] Roxicodone Notes: (Same as: Ro xicodone) No Longer Active 12/11/2016 [facility] Acetaminophen 325 MG / Oxycodone Hydroch loride 10 MG Oral Tablet [Percocet 10/325] 1 tab, Route: PO, Drug Form: TAB, Dosing Weight 75.545, kg, Q4H, PRN Pain Score 4-6, Start date: 12/11/16 9:44:00 CDT, Duration: 30 day, Stop date: 01/10/17 9:43:00 CDT Inactive 12/11/2016 [facility] POLYETHYLENE GLYCOL 3350 Notes : Dissolve in 8 oz of water or juice. (Same as: Miralax) No Longer Active 12/11/2016 [facility] Folic Acid Notes: (Same as: Fo lvite) No Longer Active 12/11/2016 [facility] ferrous sulfate Notes: Give wi th food. "Do Not Crush" No Longer Active 12/11/2016 [facility] Santyl Notes: (Same As: Santyl) No Longer Active 12/11/2016 [facility] Lovenox Notes: (Same as: Loven ox) No Longer Active 12/11/2016 [facility] carvedilol Notes: Give with fo od. (Same As: Coreg) No Longer Active 12/11/2016 [facility] Amitriptyline Notes: (Same as: Elavil) No Longer Active 12/11/2016 [facility] pregabalin Notes: (Same as: Ly steve) No Longer Active 12/10/2016 [facility] 24 HR Metoprolol Tartrate 25 MG Extended Release Tablet [Toprol] Notes: (Same as: Toprol XL) Do Not Crush No Longer Active 12/10/2016 [facility] Alprazolam 2 MG Oral Tablet [Xanax] Notes: With food or milk (Same as: Xanax) No Longe r Active 12/10/2016 [facility] pantoprazole Notes: Tablet miles uld not be chewed or crushed. (Same as: Protonix) N o Longer Active 12/10/2016 [facility] Acetaminophen 325 MG / Hydrocodone Micheal trate 10 MG Oral Tablet [[place] 10/325] Notes: Do not exceed 4gm/day of acetamin ophen. (Same as: [place] 325/10) No Longer Active 12/10/2016 [facility] Dilaudid 1 mg, 1 mL, Route: IV P, Drug form: INJ, Q3H, Dosing Weight 75.545, kg, PRN Pain Score 7-10, Start date: 12/10/16 15:59:00 CDT, Duration: 30 day, Stop date: 01/09/17 15:58:00 CDT No Longer Active 12/10/2016 [facility] Amidate (ANES) Route: IV, Drug form: INJ, ONCE, Stop date: 12/10/16 13:03:00 CDT Inactive 12/10/2016 [facility] neostigmine (ANES) Route: IV, Drug form: INJ, ONCE, Stop date: 12/10/16 13:03:00 CDT Inactive 12/10/2016 [facility] glycopyrrolate (ANES) Route: I V, Drug form: INJ, ONCE, Stop date: 12/10/16 13:03:00 CDT Inactive 12/10/2016 [facility] tizanidine Notes: (Same As: Za naflex) No Longer Active 12/10/2016 [facility] ondansetron (ANES) Route: IV, Drug form: INJ, ONCE, Stop date: 12/10/16 12:51:00 CDT Inactive 12/10/2016 [facility] dexamethasone (ANES) Route: IV , Drug form: INJ, ONCE, Stop date: 12/10/16 12:51:00 CDT Inactive 12/10/2016 [facility] Acetaminophen 325 MG / Hydrocodone Micheal trate 10 MG Oral Tablet [[place] 10/325] Notes: Do not exceed 4gm/day of acetamin ophen. (Same as: [place] 325/10) Inactive 12/10/2016 [facility] Docusate Sodium 100 MG Oral Capsule Notes: (Same as: Colace) (Do Not Crush) No Longer Active 12/10/2016 [facility] esmolol (ANES) Route: IV, Drug form: INJ, ONCE, Stop date: 12/10/16 12:36:00 CDT Inactive 12/10/2016 [facility] rocuronium (ANES) Route: IV, D rug form: INJ, ONCE, Stop date: 12/10/16 12:31:00 CDT Inactive 12/10/2016 [facility] fentaNYL (ANES) Route: IV, Arden g form: INJ, ONCE, Stop date: 12/10/16 12:31:00 CDT Inactive 12/10/2016 [facility] propofol (ANES) Route: IV, Arden g form: INJ, ONCE, Stop date: 12/10/16 12:31:00 CDT Inactive 12/10/2016 [facility] lidocaine (ANES) Route: IV, Dr ug form: INJ, ONCE, Stop date: 12/10/16 12:31:00 CDT Inactive 12/10/2016 [facility] midazolam (ANES) Route: IV, Dr ug form: SOLN, ONCE, Stop date: 12/10/16 12:25:00 CDT Inactive 12/10/2016 [facility] Calcium Chloride 0.0014 MEQ/ML / Potassi um Chloride 0.004 MEQ/ML / Sodium Chloride 0.103 MEQ/ML / Sodium Lactate 0.028 MEQ/ML Injectable Solution 1,000 mL, Rate: 25 ml/hr, Infuse over: 4 0 hr, Route: IV, Dosing Weight 75.545 kg, Total Volume: 1,000, Start date: 12/10/16 11:43:00 CDT, Duration: 30 day, Stop date: 01/09/17 11:42:00 CDT Inactive 12/10/2016 [facility] Sodium Chloride 0.154 MEQ/ML Injectable Solution 1,000 mL, Rate: 40 ml/hr, Infuse over: 25 hr, Route: IV, Dosing Weight 75.545 kg, Total Volume: 1,000, Start date: 12/10/16 11:43:00 CDT, Duration: 30 day, Stop date: 01/09/17 11:42:00 CDT Inactive 12/10/2016 [facility] sodium chloride 0.9% 1000 ml INJ (ANES) Route: IV, Total Volume: 1,000, Start date: 12/10/16 11:00:00 CDT, Stop date: 12/10/16 12:00:00 CDT Inactive 12/10/2016 [facility] Pepcid 20 mg, Route: IVP, ONCE , Dosing Weight 75.545, kg, Start date: 12/10/16 10:58:00 CDT, Stop date: 12/10/16 10:58:00 CDT Inactive 12/10/2016 [facility] Zofran 4 mg, Route: IVP, ONCE, Dosing Weight 75.545, kg, Start date: 12/10/16 10:58:00 CDT, Stop date: 12/10/16 10:58:00 CDT Inactive 12/10/2016 [facility] sodium chloride 0.9% 50 ml INJ (ANES) + meropenem (ANES) (ANES) Route: IV, Drug form: INJ, Start date: 0 12/10/16 10:45:00 CDT, Stop date: 12/10/16 11:45:00 CDT Inactive 12/10/2016 [facility] Magnesium Sulfate Notes: WASTE : F/P - Sink; E - Municipal Trash Bin Inactive 12/10/2016 [facility] Wendyien Notes: (Same As: Ambien) No Longer Active 12/10/2016 [facility] Beneprotein 7 gm pkt Notes: (S marva as: Beneprotein) No Longer Active 12/09/2016 [facility] Levi 24 gm packet Notes: (Corey e as: Levi Horsham) No Longer Active 12/09/2016 [facility] Gentamicin Sulfate (FCI) Notes : TIME CRITICAL MEDICATION (Same as Garamycin) Inactive 12/09/2016 [facility] Vancomycin 2001 mg: infuse ov er 2.5 hours MEDICATION WASTE Product Size: 1000 mg Product Wasted: ___ mg Inactive 12/09/2016 [facility] metoprolol tartrate 25 mg oral tablet 25 mg = 1 tab, PO, BID, # 60 tab, 0 Refill(s) No Longer Active 12/09/2016 [facility] Acetaminophen 325 MG / Hydrocodone Micheal trate 10 MG Oral Tablet [[place]ford 10/325] 1 tab, PO, Q6H, PRN for pain, # 24 tab, 0 Refill(s) Active 12/09/2016 [facility] gentamicin + sodium chloride 0.9% INJ 100 mL Notes: TIME CRITICAL MEDICATION (Same as Garamycin) Inactive 12/09/2016 [facility] Gentamicin Sulfate (FCI) 1 ea, Route: MISC, Dosing Weight 72.727, kg, ONCALL, Start date: 12/09/16 1:00:00 CDT, Duration: 1 doses or times, Pharmacy to dose Inactive 12/09/2016 [facility] meropenem Notes: Same as Barak jamil MEDICATION WASTE Product Size: 500 mg Product Wasted: _0__ mg No Longer Active 12/09/2016 [facility] Enoxaparin Notes: (Same as: Lo venox) No Longer Active 12/09/2016 [facility] Saline Flush 0.9% Notes: (Same as: BD Posiflush) No Longer Active 12/09/2016 [facility] Sodium Chloride 0.154 MEQ/ML Injectable Solution 1,000 mL, Rate: 150 ml/hr, Infuse over: 6.7 hr, Route: IV, Dosing Weight 72.727 kg, Total Volume: 1,000, Start date: 12/09/16 0:56:00 CDT, Duration: 30 day, Stop date: 01/08/17 0:55:00 CDT No Longer Active 12/09/2016 [facility] Acetaminophen Notes: Do not ex ceed 4 gm/day. (Same as: Tylenol) No Longer Active 12/09/2016 [facility] Morphine Notes: (Same as:MORPh ine Sulfate) No Longer Active 12/09/2016 [facility] Ondansetron Notes: (Same as: Kory davis) MEDICATION WASTE Product Size: 4 mg Product Wasted: ___ mg No Longer Active 12/09/2016 [facility] meropenem Notes: (Same as: Sandy rem) . MEDICATION WASTE Product Size: 1000 mg Product Wasted: ___ mg No Longer Active 12/09/2016 [facility] Acetaminophen 325 MG / Hydrocodone Micheal trate 10 MG Oral Tablet 1 tab, Route: PO, Drug Form: TAB, Dosing Weight 72.727, kg, ONCE, STAT, Start date: 12/08/16 23:01:00 CDT, Stop date: 12/08/16 23:01:00 CDT Inactive 12/09/2016 [facility] Zofran 4 mg, Route: IVP, Drug form: INJ, ONCE, Dosing Weight 72.727, kg, Priority: STAT, Start date: 12/08/16 22:09:00 CDT, Stop date: 12/08/16 22:09:00 CDT Inactive 12/09/2016 [facility] Sodium Chloride 0.154 MEQ/ML Injectable Solution 2,000 mL, 2000 ml/hr, Infuse Over: 1 hr, Route: IV, 2,000, Drug form: INJ, ONCE, Priority: STAT, Dosing Weight 72.727 kg, Start date: 12/08/16 21:25:00 CDT, Duration: 1 doses or times, Stop date: 12/08/16 21:25:00 CDT Inactive 12/09/2016 [facility] Rocephin Notes: (Same As: Yandy andraden). Use with 100 mL NS and infuse over 30 min MEDICATION WASTE Product Size: 1000 mg Product Wasted: ___ mg Inactive 12/09/2016 [facility] Acetaminophen Notes: Do not ex ceed 4 gm/day. (Same as: Tylenol) Inactive 12/09/2016 [facility] Saline Flush 0.9% Notes: (Same as: BD Posiflush) No Longer Active 12/09/2016 [facility] POLYETHYLENE GLYCOL 3350 PO, D aily, 0 Refill(s) Active 11/28/2016 [facility] ciprofloxacin 250 mg oral tablet 250 mg = 1 tab, PO, [id number], X 1 day, # 2 tab, 0 Refill(s) No Longer Active 11/28/2016 [facility] nter carvedilol 6.25 mg oral tablet 6.25 mg = 1 tab, PO, Q12H, 0 Refill(s) Active 11/28/2016 [facility] vancomycin 250 mg/5 mL oral solution 125 mg = 2.5 mL, PO, ABXQ6H, X 2 day, # 20 mL, 0 Refill(s) No Longer Active 11/28/2016 [facility] nter Magnesium Oxide Notes: (Same a s: Mag-Ox 400) Magnesium oxide [id number] elemental magnesium Dose= 800 mg magnesium oxide ( 484 mg elemental magnesium) Inactive 11/28/2016 [facility] Kayexalate Notes: (sodium poly styrene sulfonate 15 gm/60 ml SOLITARIO) Shake well before use. (Same as: Jiexalate, SPS) Inactive 11/27/2016 [facility] sodium chloride 0.9% 1000 ml INJ 1,000 mL 1,000 mL, Rate: 50 ml/hr, Infuse over: 20 hr, Route: IV, Dosing Weight 70.455 kg, Total Volume: 1,000, Start date: 11/27/16 15:49:00 CDT, Duration: 30 day, Stop date: 12/27/16 15:48:00 CDT No Longe r Active 11/27/2016 [facility] nter Vitamin C Notes: (Same as: Vit ayala C) No Longer Active 11/27/2016 [facility] Vitamin B12 Notes: (Same As: V itamin B-12) No Longer Active 11/27/2016 [facility] Miralax Notes: Dissolve in 8 o z of water or juice. (Same as: Miralax) No Longer Active 11/27/2016 [facility] Kayexalate Notes: (sodium poly styrene sulfonate 15 gm/60 ml SOLITARIO) Shake well before use. (Same as: Jiexalate, SPS) Inactive 11/27/2016 [facility] Sodium Chloride 0.154 MEQ/ML Injectable Solution 500 mL, 500 ml/hr, Infuse Over: 1 hr, Route: IV, 500, Drug form: INJ, ONCE, Dosing Weight 70.455 kg, Start date: 11/27/16 10:12:00 CDT, Stop date: 11/27/16 10:12:00 CDT Inactive 11/27/2016 [facility] carvedilol Notes: Give with fo od. (Same As: Coreg) No Longer Active 11/25/2016 [facility] Sodium Chloride 0.154 MEQ/ML Injectable Solution 1,000 mL, Rate: 100 ml/hr, Infuse over: 10 hr, Route: IV, Dosing Weight 70.455 kg, Total Volume: 1,000, Start date: 11/24/16 11:22:00 CDT, Duration: 30 day, Stop date: 12/24/16 11:21:00 CDT Inactive 11/24/2016 [facility] nter Sodium Chloride 0.154 MEQ/ML Injectable Solution 1,000 mL, Rate: 80 ml/hr, Infuse over: 12.5 hr, Route: IV, Dosing Weight 70.455 kg, Total Volume: 1,000, Start date: 11/23/16 9:51:00 CDT, Duration: 30 day, Stop date: 12/23/16 9:50:00 CDT No Longer Active 11/23/2016 [facility] nter Kayexalate Notes: (sodium poly styrene sulfonate 15 gm/60 ml SOLITARIO) Shake well before use. (Same as: Kayexalate, SPS) Inactive 11/22/2016 [facility] Sodium Chloride 0.154 MEQ/ML Injectable Solution 1,000 mL, Rate: 125 ml/hr, Infuse over: 8 hr, Route: IV, Dosing Weight 70.455 kg, Total Volume: 1,000, Start date: 11/21/16 18:37:00 CDT, Duration: 30 day, Stop date: 12/21/16 18:36:00 CDT No Longer Active 11/21/2016 [facility] nter Lasix Notes: (Same as: Lasix) Inactive 11/21/2016 [facility] metoprolol extended release No tru: (Same as: Toprol XL) Do Not Crush No Longer Active 11/21/2016 [facility] Lisinopril Notes: (Same as: Pr inivil, Zestril) Inactive 11/21/2016 [facility] Kayexalate Notes: (sodium poly styrene sulfonate 15 gm/60 ml SOLITARIO) Shake well before use. (Same as: Kayexalate, SPS) Inactive 11/21/2016 [facility] Calcium Gluconate Notes: WASTE : F/P - Sink; E - Municipal Trash Bin Inactive 11/21/2016 [facility] Sodium Chloride 0.154 MEQ/ML Injectable Solution 1,000 mL, Rate: 100 ml/hr, Infuse over: 10 hr, Route: IV, Dosing Weight 70.455 kg, Total Volume: 1,000, Start date: 11/21/16 7:24:00 CDT, Duration: 30 day, Stop date: 12/21/16 7:23:00 CDT Inactive 11/21/2016 [facility] nt Vancomycin 125 mg, Route: PO, Drug form: CAP, ABXQ6H, Dosing Weight 70.455, kg, Start date: 11/20/16 15:00:00 CDT, Duration: 30 day, Stop date: 12/20/16 9:00:00 CDT Inactive 11/20/2016 [facility] nter Avycaz + sodium chloride 0.9% INJ 100 mL Notes: (Same as: Avycaz) Non-formulary No Longer Active 11/20/2016 [facility] nter sodium chloride 0.9% 1000 ml INJ 1,000 mL 1,000 mL, Rate: 75 ml/hr, Infuse over: 13.3 hr, Route: IV, Dosing Weight 70.455 kg, Total Volume: 1,000, Start date: 11/19/16 10:15:00 CDT, Duration: 1 day, Stop date: 11/20/16 10:14:00 CDT No Longe r Active 11/19/2016 [facility] nter Magnesium Sulfate 2 gm, Route: IVPB, Drug form: INJ, Q2H, Dosing Weight 70.455, kg, Total dose = 2 gm, Start date: 11/18/16 20:00:00 CDT, Duration: 2 doses or times, Stop date: 11/18/16 22:00:00 CDT Inactive 11/19/2016 [facility] Vancomycin Notes: TIME CRITICA L MEDICATION Concentration = 50 mg/ml. Keep in refrigerator. For oral use only. Vancomycin 1gm vial are used and reconstituted with 20ml of sterile water for a concentration of 50m g/ml. Draw up in ken po syringes. DO NOT USE IV SYRINGES. No Longer Active 11/18/2016 [facility] Magnesium Sulfate Notes: WASTE : F/P - Sink; E - Municipal Trash Bin Inactive 11/18/2016 [facility] sodium chloride 0.9% 1000 ml INJ 1,000 mL 1,000 mL, Rate: 75 ml/hr, Infuse over: 13.3 hr, Route: IV, Dosing Weight 70.455 kg, Total Volume: 1,000, Start date: 11/18/16 7:19:00 CDT, Duration: 30 day, Stop date: 12/18/16 7:18:00 CDT No Longer Active 11/18/2016 [facility] Zinc Oxide 0.2 MG/MG Topical Ointment Route: TOP, Daily, Drug form: OINT, Start date: 11/17/16 9:00:00 CDT, Duration: 30 day, Stop date: 12/16/16 9:00:00 CDT No Longer Active 11/17/2016 [facility] Robaxin Notes: (Same as:Robaxi n) No Longer Active 11/16/2016 [facility] doxycycline Notes: NO MILK/ANT ACIDS/IRON Take 1 hour before or 2 hours after dairy products No Longer Active 11/16/2016 [facility] Doxycycline Notes: NO MILK/ANT ACIDS/IRON Take 1 hour before or 2 hours after dairy products Inactive 11/16/2016 [facility] Ciprofloxacin Notes: May inter fere w/enteral feedings - Take 1 hr before or 2 hrs after antacids, dairy pdt & minerals. On empty stomach. No Longer Active 11/16/2016 [facility] Alprazolam 1 MG Oral Tablet [Xanax] Notes: With food or milk (Same as: Xanax) No Longe r Active 11/15/2016 [facility] Midazolam Notes: Same as: Vers ed Inactive 11/15/2016 [facility] Ondansetron Notes: (Same as: Kory davis) MEDICATION WASTE Product Size: 4 mg Product Wasted: ___ mg Inactive 11/15/2016 [facility] Amitriptyline 100 mg, 2 tab, R oute: PO, Drug form: TAB, Bedtime, Dosing Weight 70.455, kg, Start date: 11/14/16 21:00:00 CDT, Stop date: 12/13/16 21:00:00 CDT No Longer Active 11/15/2016 [facility] Tetrahydrocannabinol Notes: (S marva as: Marinol) Non- Formulary Drug. No Longer Active 11/14/2016 [facility] Dakins Solution 0.5% topical 1 appl, Route: TOP, Daily, Drug form: SOLN, Start date: 11/14/16 9:00:00 CDT, Duration: 30 day, Stop date: 12/13/16 9:00:00 CDT No Longer Active 11/14/2016 [facility] Acetaminophen 325 MG / Hydrocodone Micheal trate 10 MG Oral Tablet [Boxford 10/325] Notes: Do not exceed 4gm/day of acetamin ophen. (Same as: [place] 325/10) No Longer Active 11/13/2016 [facility] Melatonin 3 MG Extended Release Tablet Notes: (Same as: Melatonin) No Longer Active 11/13/2016 [facility] Avycaz + sodium chloride 0.9% INJ 100 mL Notes: (Same as: Avycaz) Non-formulary No Longer Active 11/13/2016 [facility] DAPTOmycin + sodium chloride 0.9% INJ 100 mL Notes: (Same As: Cubicin) Restricted use to Infectious Disease Physicians. MEDICATION WASTE Product Size: 500 mg Product Wasted: ___ mg No Longer Active 11/13/2016 [facility] Metronidazole Notes: (Same as: Flagyl) Take with food/ avoid alcohol No Longer Active 11/13/2016 [facility] Avycaz Notes: (Same as: Avycaz ) Non-formulary No Longer Active 11/13/2016 [facility] Daptomycin Notes: (Same As: Cu bicin) Restricted use to Infectious Disease Physicians. MEDICATION WASTE Product Size: 500 mg Product Wasted: ___ mg Inactive 11/13/2016 [facility] Acetaminophen 325 MG / Hydrocodone Micheal trate 7.5 MG Oral Tablet [[place] 7.5/325] Notes: Same as [place] 325-7.5mg Do not exceed 4gm/day of acetaminophen. No Longer Active 11/12/2016 [facility] Sertraline Notes: (Same as: Fanta loft) No Longer Active 11/12/2016 [facility] cefepime Notes: (Same as: Franco guaman) MEDICATION WASTE Product Size: 2000 mg Product Wasted: ___ mg No Longer Active 11/12/2016 [facility] Fosfomycin Notes: (Same as: Boo faye) mix w/ 90 to 120 ml (3 to 4 ounces) of water and stir to dissolve. Do not use hot water. Take immediately after dissolving in water. Inactive 11/11/2016 [facility] Fentanyl Route: IV, ONCE, Alia khan Weight 70.455, kg, Start date: 11/11/16 15:10:00 CDT, Stop date: 11/11/16 15:10:00 CDT Inactive 11/11/2016 [facility] Miralax Notes: Dissolve in 8 o z of water or juice. (Same as: Miralax) No Longer Active 11/10/2016 [facility] Lexapro Notes: (Same as: Lexap ro) No Longer Active 11/10/2016 [facility] Acetaminophen 325 MG / Hydrocodone Micheal trate 5 MG Oral Tablet [Boxford 5/325] Notes: (Same as: [place] 325/5) Do not ex ceed 4gm/day of acetaminophen. No Longer Activ e 11/10/2016 [facility] Vancomycin Notes: TIME CRITICA L MEDICATION (Same As: Vancocin) No Longer Active 11/10/2016 [facility] Amitriptyline Notes: (Same as: Elavil) No Longer Active 11/10/2016 [facility] Saline Flush 0.9% Notes: (Same as: BD Posiflush) No Longer Active 11/09/2016 [facility] Lidocaine Hydrochloride 10 MG/ML Injectable Solution Notes: (Same as: Xylocaine) No Longer Active 11/09/2016 [facility] Saline Flush 0.9% Notes: (Same as: BD Posiflush) No Longer Active 11/09/2016 [facility] Celexa Notes: (Same As: CeleXA) No Longer Active 11/09/2016 [facility] Levsin SL Notes: (Same as: Lev sin) Take 30 min before meal No Longer Active 11/09/2016 [facility] sodium chloride 0.9% INJ 250 mL 250 mL, Rate: status controller for use with blood product administration, Dosing Weight 70.455, kg, Route: IV, Total Volume: 250, Start Date: 11/09/16 10:39:00 CDT, Duration: 1 day, Stop date: 11/10/16 10:38:00 CDT, Replace Every: 24 hr No Longer Active 11/09/2016 [facility] Magnesium Sulfate Notes: WASTE : F/P - Sink; E - Municipal Trash Bin Inactive 11/09/2016 [facility] Lidocaine Hydrochloride 10 MG/ML Injectable Solution Notes: (Same as: Xylocaine) No Longer Active 11/09/2016 [facility] Saline Flush 0.9% Notes: (Same as: BD Posiflush) No Longer Active 11/09/2016 [facility] Ativan Notes: (Same as: Ativan) No Longer Active 11/08/2016 [facility] pantoprazole Notes: Tablet miles uld not be chewed or crushed. (Same as: Protonix) N o Longer Active 11/08/2016 [facility] meropenem Notes: Same as Barak jamil MEDICATION WASTE Product Size: 500 mg Product Wasted: ___ mg No Longer Active 11/08/2016 [facility] Magnesium Sulfate Notes: WASTE : F/P - Sink; E - Municipal Trash Bin Inactive 11/08/2016 [facility] Ditropan XL 10 mg, 2 tab, Rout e: PO, Drug form: ERTAB, Daily, Start date: 11/08/16 9:00:00 CDT, Stop date: 12/07/16 9:00:00 CDT No Longer Active 11/08/2016 [facility] tolterodine 4 mg, Route: PO, D rug form: CAP, Daily, Dosing Weight 70.455, kg, Start date: 11/08/16 9:00:00 CDT, Duration: 30 day, Stop date: 12/07/16 9:00:00 CDT No Longer Active 11/08/2016 [facility] tizanidine Notes: (Same As: Za naflex) No Longer Active 11/08/2016 [facility] pregabalin Notes: (Same as: Ly steve) No Longer Active 11/08/2016 [facility] Folic Acid Notes: (Same as: Fo lvite) No Longer Active 11/08/2016 [facility] ferrous sulfate Notes: Give wi th food. "Do Not Crush" No Longer Active 11/08/2016 [facility] Santyl Notes: (Same As: Santyl) No Longer Active 11/08/2016 [facility] Alprazolam 2 MG Oral Tablet [Xanax] Notes: With food or milk (Same as: Xanax) Inactive 11/08/2016 [facility] vancomycin + sodium chloride 0.9% 250 mL INJ (for IV set) 250 mL 2001 mg: infuse over 2.5 hours ME DICATION WASTE Product Size: 1000 mg Product Wasted: ___ mg No Longer Active 11/08/2016 [facility] meropenem Notes: Same as Barak jamil MEDICATION WASTE Product Size: 500 mg Product Wasted: ___ mg Inactive 11/08/2016 [facility] Dilaudid Notes: Same as: Dilau did No Longer Active 11/08/2016 [facility] Sodium Chloride 0.154 MEQ/ML Injectable Solution 1,000 mL, 1,000 ml/hr, Infuse Over: 1 hr, Route: IV, 1,000, Drug form: INJ, ONCE, Priority: STAT, Dosing Weight 70.455 kg, Start date: 11/07/16 21:57:00 CDT, Duration: 1 doses or times, Stop date: 11/07/16 21:57:00 CDT Inactive 11/08/2016 [facility] metoprolol tartrate 25 mg, 1 t ab, Route: PO, Drug form: TAB, Q12H, Dosing Weight 70.455, kg, Start date: 11/07/16 21:00:00 CDT, Duration: 30 day, Stop date: 12/07/16 9:00:00 CDT No Longer Active 11/08/2016 [facility] Amitriptyline 50 mg, 2 tab, [place]: PO, Drug form: TAB, Bedtime, Dosing Weight 70.455, kg, Start date: 11/07/16 21:00:00 CDT, Duration: 30 day, Stop date: 12/06/16 21:00:00 CDT No Longer Active 11/08/2016 [facility] BD Normal Saline Flush Notes: (Same as: BD Posiflush) No Longer Active 11/08/2016 [facility] Lovenox Notes: (Same as: Loven ox) No Longer Active 11/08/2016 [facility] meropenem = 50ml/min, Extende d infusion, infuse over 3 hours, Start date: 11/07/16 20:00:00 CDT, Duration: 30 day, Stop date: 12/07/16 14:00:00 CDT Inactive 11/08/2016 [facility] Docusate Sodium 100 MG Oral Capsule Notes: (Same as: Colace) (Do Not Crush) No Longer Active 11/08/2016 [facility] Acetaminophen 300 MG / Codeine Phosphate 30 MG Oral Tablet [Tylenol with Codeine #3] Notes: Do not exceed 4gm/day of acetamin ophen. (Same as: Tylenol with Codeine # 3) No Longer Active 11/08/2016 [facility] sodium chloride 0.9% 1000 ml INJ 1,000 mL 1,000 mL, Rate: 100 ml/hr, Infuse over: 10 hr, Route: IV, Dosing Weight 70.455 kg, Total Volume: 1,000, Start date: 11/07/16 19:50:00 CDT, Duration: 30 day, Stop date: 12/07/16 19:49:00 CDT No Longe r Active 11/08/2016 [facility] Docusate 100 mg, Route: PO, BI D, Dosing Weight 70.455, kg, PRN Constipation, Start date: 11/07/16 19:36:00 CDT, Duration: 30 day, Stop date: 12/07/16 19:35:00 CDT Inactive 11/08/2016 [facility] Ondansetron Notes: (Same as: Kory davis) MEDICATION WASTE Product Size: 4 mg Product Wasted: ___ mg No Longer Active 11/08/2016 [facility] Morphine Notes: (Same as:MORPh ine Sulfate) No Longer Active 11/08/2016 [facility] Acetaminophen Notes: Do not ex ceed 4 gm/day. (Same as: Tylenol) No Longer Active 11/08/2016 [facility] Hydromorphone 0.5 mg, Route: I PLASTIC WORKER, ONCE, Dosing Weight 70.455, kg, Priority: STAT, Start date: 11/07/16 18:48:00 CDT, Stop date: 11/07/16 18:48:00 CDT Inactive 11/07/2016 [facility] metoprolol tartrate 25 mg, Rou te: PO, Drug form: TAB, ONCE, Dosing Weight 70.455, kg, Start date: 11/07/16 18:10:00 CDT, Stop date: 11/07/16 18:10:00 CDT Inactive 11/07/2016 [facility] iodixanol 86 mL, Route: IVP, D rug Form: SOLN, Dosing Weight 70.455, kg, ONCALL, STAT, Start date: 11/07/16 15:59:00 CDT, Duration: 1 doses or times, Dose = 2.2ml/kg, Max dose = 100ml -- "To be infused by Radi ology Staff ONLY" Inactive 11/07/2016 [facility] Diphenhydramine Notes: (Same a s: Benadryl) Inactive 11/07/2016 [facility] Ondansetron 4 mg, Route: IVP, Drug form: INJ, ONCE, Dosing Weight 70.455, kg, Priority: STAT, Start date: 11/07/16 15:26:00 CDT, Stop date: 11/07/16 15:26:00 CDT Inactive 11/07/2016 [facility] Morphine 4 mg, Route: IVP, ONC E, Dosing Weight 70.455, kg, Priority: STAT, Start date: 11/07/16 15:26:00 CDT, Stop date: 11/07/16 15:26:00 CDT Inactive 11/07/2016 [facility] Fluconazole Notes: (Same as: D iflucan) Inactive 11/07/2016 [facility] Acetaminophen 650 mg, 2 tab, R oute: PO, Drug form: TAB, ONCE, Dosing Weight 70.455, kg, Priority: STAT, Start date: 11/07/16 14:40:00 CDT, Stop date: 11/07/16 14:40:00 CDT Inactive 11/07/2016 [facility] Vancomycin 2001 mg: infuse ov er 2.5 hours MEDICATION WASTE Product Size: 1000 mg Product Wasted: _0__ mg Inactive 11/07/2016 [facility] meropenem 1,000 mg, Route: IVP B, Drug form: PDR/INJ, ONCE, Dosing Weight 70.455, kg, Priority: STAT, Start date: 11/07/16 14:39:00 CDT, Stop date: 11/07/16 14:39:00 CDT Inactive 11/07/2016 [facility] Saline Flush 0.9% Notes: (Same as: BD Posiflush) No Longer Active 11/07/2016 [facility] Sodium Chloride 0.154 MEQ/ML Injectable Solution 2,000 mL, 1000 ml/hr, Infuse Over: 2 hr, Route: IVPB, 2,000, Drug form: INJ, ONCE, Priority: STAT, Dosing Weight 70.455 kg, Start date: 11/07/16 14:34:00 CDT, Duration: 1 doses or times, Stop date: 11/07/16 14:34:00 CDT Inactive 11/07/2016 [facility] Acetaminophen 300 MG / Codeine Phosphate 30 MG Oral Tablet [Tylenol with Codeine #3] 1 tab, PO, Q6H, PRN Pain, X 3 day, # 12 tab, 0 Refill(s) Active 11/05/2016 [facility] Ondansetron 4 MG Disintegrating Tablet [Zofran] 4 mg = 1 tab, PO, TID, Dissolve tab under tongue, X 2 day, # 6 tab, 0 Refill(s) Active 11/05/2016 [facility] Zofran ODT Notes: (Same as: Zo mayi ODT) Inactive 11/05/2016 [facility] Acetaminophen 300 MG / Codeine Phosphate 30 MG Oral Tablet [Tylenol with Codeine #3] Notes: Do not exceed 4gm/day of acetamin ophen. (Same as: Tylenol with Codeine # 3) Inactive 11/05/2016 [facility] Acetaminophen 325 MG / Hydrocodone Micheal trate 5 MG Oral Tablet [[place] 5/325] 1 tab, PO, Q6H, PRN Pain Score 6-10, X 3 day, # 10 tab, 0 Refill(s), other Active 10/25/2016 [facility] Calcium Gluconate Notes: WASTE : F/P - Sink; E - Municipal Trash Bin Inactive 10/25/2016 [facility] Acetaminophen 325 MG / Hydrocodone Micheal trate 5 MG Oral Tablet [[place] 5/325] Notes: (Same as: [place] 325/5) Do not ex ceed 4gm/day of acetaminophen. No Longer Activ e 10/24/2016 [facility] tramadol hydrochloride 50 MG Oral Tablet 1 tab, Route: PO, Drug form: TAB, Q6H, Dosing Weight 70.455, kg, PRN Pain Score 4-6, Start date: 10/24/16 18:48:00 CDT, Duration: 30 day, Stop date: 11/23/16 18:47:00 CDT Inactive 10/24/2016 [facility] Kayexalate Notes: (sodium poly styrene sulfonate 15 gm/60 ml SOLITARIO) Shake well before use. (Same as: Kayexalate, SPS) Inactive 10/24/2016 [facility] Calcium Gluconate Notes: WASTE : F/P - Sink; E - Municipal Trash Bin Inactive 10/24/2016 [facility] Folic Acid Notes: (Same as: Fo lvite) No Longer Active 10/24/2016 [facility] ferrous sulfate Notes: Give wi th food. iron elemental [id number] as ferrous sulfate Dose=___mg elemental iron No Longer Active 10/24/2016 [facility] Santyl Notes: (Same As: Santyl) No Longer Active 10/24/2016 [facility] metoprolol tartrate Notes: (Sa me as: Lopressor) No Longer Active 10/24/2016 [facility] tizanidine Notes: (Same As: Za naflex) No Longer Active 10/23/2016 [facility] Alprazolam 2 MG Oral Tablet [Xanax] Notes: With food or milk (Same as: Xanax) No Longe r Active 10/23/2016 [facility] pantoprazole Notes: Tablet miles uld not be chewed or crushed. (Same as: Protonix) N o Longer Active 10/23/2016 [facility] heparin Notes: porcine heparin No Longer Active 10/23/2016 [facility] Docusate Sodium 100 MG Oral Capsule Notes: (Same as: Colace) (Do Not Crush) No Longer Active 10/23/2016 [facility] sodium chloride 0.9% 1000 ml INJ 1,000 mL 1,000 mL, Rate: 125 ml/hr, Infuse over: 8 hr, Route: IV, Dosing Weight 70.455 kg, Total Volume: 1,000, Start date: 10/23/16 8:42:00 CDT, Duration: 30 day, Stop date: 11/22/16 8:41:00 CDT No Longer Active 10/23/2016 [facility] Diphenhydramine Notes: (Same a s: Benadryl) No Longer Active 10/23/2016 [facility] Tessalon Perles Notes: (Same A s: Tessalon Perles) "Do Not Crush" No Longer Active 10/23/2016 [facility] Acetaminophen Notes: Do not ex ceed 4 gm/day. (Same as: Tylenol) No Longer Active 10/23/2016 [facility] Ondansetron Notes: (Same as: Kory davis) MEDICATION WASTE Product Size: 4 mg Product Wasted: ___ mg No Longer Active 10/23/2016 [facility] Milk of Magnesia Notes: (Same as: Milk of Magnesia, MOM) No Longer Active 10/23/2016 [facility] meropenem 500 mg intravenous injection See Instructions, 500 mg IV Q6H 17 day, # 68 ea, 0 Refill(s) Active 10/03/2016 [facility] vancomycin 1 g intravenous injection 1 gm, IV, Q12H, X 17 day, # 34 ea, 0 Refill(s) Active 10/03/2016 [facility] metoprolol tartrate 25 mg oral tablet 25 mg = 1 tab, PO, Q12H, 0 Refill(s) Active 10/03/2016 [facility] oxyCODONE 30 mg oral tablet 30 mg = 1 tab, PO, Q6H, PRN Pain, X 7 day, # 28 tab, 0 Refill(s) Active 10/03/2016 [facility] Hydromorphone Hydrochloride 8 MG Oral Tablet [Dilaudid ] 8 mg = 1 tab, PO, Q8H, PRN Pain, X 7 day, # 21 tab, 0 Refill(s) Active 10/03/2016 [facility] Dilaudid Notes: (Same as: Dila udid) Inactive 10/03/2016 [facility] Oxycodone Hydrochloride 5 MG Oral Tablet Notes: (Same as: Roxicodone) Inactive 10/03/2016 [facility] Oxycodone Hydrochloride 5 MG Oral Tablet Notes: (Same as: Roxicodone) Inactive 10/02/2016 [facility] Dilaudid Notes: (Same as: Dila udid) Inactive 10/02/2016 [facility] vancomycin + sodium chloride 0.9% INJ 250 mL 2001 mg: infuse over 2.5 hours MEDICATION WASTE Product Size: 1000 mg Product Wasted: ___ mg No Longer Active 10/01/2016 [facility] Flexeril Notes: (Same As: Flex eril) Inactive 10/01/2016 [facility] Dilaudid Notes: Same as: Dilau did No Longer Active 09/29/2016 [facility] Vancomycin 2001 mg: infuse ov er 2.5 hours MEDICATION WASTE Product Size: 1000 mg Product Wasted: ___ mg No Longer Active 09/28/2016 [facility] Acetaminophen 325 MG / Hydrocodone Micheal trate 10 MG Oral Tablet [[place] 10/325] Notes: Do not exceed 4gm/day of acetamin ophen. (Same as: [place] 325/10) No Longer Active 09/28/2016 [facility] Acetaminophen 325 MG / Hydrocodone Micheal trate 5 MG Oral Tablet [[place] 5/325] Notes: (Same as: [place] 325/5) Do not ex ceed 4gm/day of acetaminophen. Inactive 09/28/2016 [facility] Vancomycin 2001 mg: infuse ov er 2.5 hours MEDICATION WASTE Product Size: 1000 mg Product Wasted: ___ mg No Longer Active 09/28/2016 [facility] Santyl Notes: (Same As: Santyl) No Longer Active 09/27/2016 [facility] tolterodine Notes: Do Not Elie h. (Same As: Detrol LA) No Longer Active 09/27/2016 [facility] Folic Acid Notes: (Same as: Fo lvite) No Longer Active 09/27/2016 [facility] ferrous sulfate Notes: Give wi th food. "Do Not Crush" No Longer Active 09/27/2016 [facility] Amitriptyline Notes: (Same as: Elavil) No Longer Active 09/27/2016 [facility] Lopressor Notes: (Same as: Lop ressor) No Longer Active 09/27/2016 [facility] Vancomycin 2001 mg: infuse ov er 2.5 hours Inactive 09/27/2016 [facility] pregabalin Notes: (Same as: Ly steve) No Longer Active 09/26/2016 [facility] Alprazolam 2 MG Oral Tablet [Xanax] Notes: With food or milk (Same as: Xanax) No Longe r Active 09/26/2016 [facility] pantoprazole Notes: Tablet miles uld not be chewed or crushed. (Same as: Protonix) N o Longer Active 09/26/2016 [facility] Levi 24 gm packet Notes: (Corey e as: Levi Horsham) No Longer Active 09/26/2016 [facility] tizanidine Notes: (Same As: Za naflex) No Longer Active 09/26/2016 [facility] Docusate Sodium 100 MG Oral Capsule 100 mg, 1 cap, Route: PO, Drug form: CAP, BID, Dosing Weight 75.455, kg, PRN Constipation, Start date: 09/26/16 10:10:00 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, Duration: 30 day, Stop date: 10/26/16 10:09:00 CDT Inactive 09/26/2016 [facility] pneumococcal capsular polysaccharide typ e 1 vaccine / pneumococcal capsular polysaccharide type 10A vaccine / pneumococcal capsular polysaccharide type 11A vaccine / pneumococcal capsular polysaccharide type 12F vaccine / pneumococcal capsular polysacchar 0.5 mL, Route: IM, Daily, Start date: 09/26/16 9:00:00 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, Duration: 1 doses or times, Stop date: 09/26/16 9:00:00 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 No Longer Active 09/26/2016 [facility] Alprazolam 0.25 MG Oral Tablet [Xanax] Notes: With food or milk (Same as: Xanax) No Longer Active 09/26/2016 [facility] Alprazolam 2 MG Oral Tablet [Xanax] 2 mg = 1 tab, PO, BID, # 20 tab, 0 Refill(s) Active 09/26/2016 [facility] meropenem + sodium chloride 0.9% INJ 100 mL Notes: Same as Merrem MEDICATION WASTE Product Size: 500 mg Product Wasted: ___ mg No Longer Active 09/26/2016 [facility] Enoxaparin Notes: (Same as: Lo venox) No Longer Active 09/26/2016 [facility] meropenem 1,000 mg, Route: IV, Q12H, Dosing Weight 72.727, kg, Priority: NOW, Start date: 09/25/16 18:46:00 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, Duration: 22 day, Stop date: 10/17/16 9:00:00 CDT Inactive 09/26/2016 [facility] Labetalol Notes: (Same as: Richard alan Trandajazmin) Push over 2 minutes Give bolus over 2-3 minutes. No Longer Active 09/26/2016 [facility] Acetaminophen 325 MG / Hydrocodone Micheal trate 5 MG Oral Tablet [[place] 5/325] Notes: (Same as: [place] 325/5) Do not ex ceed 4gm/day of acetaminophen. No Longer Activ e 09/26/2016 [facility] Tylenol Notes: Do not exceed 4 gm/day. (Same as: Tylenol) No Longer Active 09/26/2016 [facility] Zofran Notes: (Same as: Zofran ) MEDICATION WASTE Product Size: 4 mg Product Wasted: ___ mg No Longer Active 09/26/2016 [facility] Acetaminophen 325 MG / Hydrocodone Micheal trate 5 MG Oral Tablet [[place] 5/325] 1 tab, Route: PO, Drug Form: TAB, Dosing Weight 72.727, kg, ONCE, PRN Pain Score 1-3, Start date: 09/25/16 17:37:00 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 Inactive 09/25/2016 [facility] Ativan 0.5 mg, Route: IVP, [place] g form: INJ, ONCE, Dosing Weight 72.727, kg, PRN Anxiety, Start date: 09/25/16 17:25:00 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 Inactive 09/25/2016 [facility] Zofran 4 mg, Route: IVP, Drug form: INJ, ONCE, Dosing Weight 72.727, kg, Priority: STAT, Start date: 09/25/16 15:16:00 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, Stop date: 09/25/16 15:16:00 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 Inactive 09/25/2016 [facility] Morphine 4 mg, Route: IVP, ONC E, Dosing Weight 72.727, kg, Priority: STAT, Start date: 09/25/16 15:16:00 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, Stop date: 09/25/16 15:16:00 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 Inactive 09/25/2016 [facility] meropenem Notes: (Same as: Sandy rem) . MEDICATION WASTE Product Size: 1000 mg Product Wasted: ___ mg Inactive 09/25/2016 [facility] Sodium Chloride 0.154 MEQ/ML Injectable Solution 2,000 mL, 2000 ml/hr, Infuse Over: 1 hr, Route: IV, 2,000, Drug form: INJ, ONCE, Priority: STAT, Dosing Weight 72.727 kg, Start date: 09/25/16 15:01:00 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, Duration: 1 doses or times, Stop date: 09/25/16 15:01:00 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 Inactive 09/25/2016 [facility] Zofran Notes: (Same as: Zofran ) MEDICATION WASTE Product Size: 4 mg Product Wasted: ___ mg Inactive 09/22/2016 [facility] Morphine Notes: (Same as:MORPh ine Sulfate) Inactive 09/22/2016 [facility] Famotidine 20 mg, Route: IVP, ONCE, Dosing Weight 70.455, kg, Priority: STAT, Start date: 09/22/16 12:57:00 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, Stop date: 09/22/16 12:57:00 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 Inactive 09/22/2016 [facility] Ondansetron 4 mg, Route: IVP, ONCE, Dosing Weight 70.455, kg, Priority: STAT, Start date: 09/22/16 12:57:00 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, Stop date: 09/22/16 12:57:00 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 Inactive 09/22/2016 [facility] Saline Flush 0.9% Notes: (Same as: BD Posiflush) Inactive 09/22/2016 [facility] Sodium Chloride 0.154 MEQ/ML Injectable Solution 1,000 mL, 2,000 ml/hr, Infuse Over: 30 minutes, Route: IV, 1,000, Drug form: INJ, ONCE, Priority: STAT, Dosing Weight 70.455 kg, Start date: 09/22/16 12:57:00 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, Duration: 1 doses or times, Stop date: 09/22/16 12:57:00 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 Inactive 09/22/2016 [facility] Saline Flush 0.9% Notes: (Same as: BD Posiflush) Inactive 09/10/2016 [facility] Calcium Chloride 0.0014 MEQ/ML / Potassi um Chloride 0.004 MEQ/ML / Sodium Chloride 0.103 MEQ/ML / Sodium Lactate 0.028 MEQ/ML Injectable Solution 1,000 mL, 2,000 ml/hr, Infuse Over: 0.5 hr, Route: IV, 1,000, Drug form: INJ, ONCE, Priority: STAT, Dosing Weight 70.455 kg, Start date: 09/10/16 14:17:00 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, Duration: 1 doses or times, Stop date: 09/10/16 14:17:00 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 Inactive 09/10/2016 [facility] Acetaminophen 300 MG / Codeine Phosphate 30 MG Oral Tablet [Tylenol with Codeine #3] 1 - 2 tab, PO, Q4H, PRN Pain, X 2 day, # 20 tab, 0 Refill(s) No Longer Active 09/04/2016 [facility] metoprolol tartrate 25 mg oral tablet 12.5 mg = 0.5 tab, PO, Q12H, # 30 tab, 0 Refill(s) Active 09/04/2016 [facility] pregabalin 150 mg oral capsule 150 mg = 1 cap, PO, BID, # 60 cap, 0 Refill(s) Active 09/04/2016 [facility] fluconazole 100 mg oral tablet 100 mg = 1 tab, PO, [id number], X 7 day, # 7 tab, 0 Refill(s) Active 09/04/2016 [facility] Alprazolam 1 MG Oral Tablet [Xanax] 1 mg = 1 tab, PO, BID, X 7 day, # 14 tab, 0 Refill(s) Active 09/04/2016 [facility] amitriptyline 50 mg oral tablet 50 mg = 1 tab, PO, Bedtime, # 14 tab, 0 Refill(s) Active 09/04/2016 [facility] Diflucan Notes: (Same as: Difl ucan) No Longer Active 08/31/2016 [facility] sodium chloride 0.9% 1000 ml INJ 1,000 mL 1,000 mL, Rate: 75 ml/hr, Infuse over: 13.3 hr, Route: IV, Dosing Weight 75.455 kg, Total Volume: 1,000, Start date: 08/31/16 10:20:00 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, Duration: 1 doses or times, Stop date: 08/31/16 23:37:00 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 Inactive 08/31/2016 [facility] Potassium Chloride 1.33 MEQ/ML Oral Solution Notes: (Same as: Potassium Chloride) Inactive 08/31/2016 [facility] Vancomycin 2001 mg: infuse ov er 2.5 hours MEDICATION WASTE Product Size: 1000 mg Product Wasted: ___ mg No Longer Active 08/31/2016 [facility] Amitriptyline Notes: (Same as: Elavil) No Longer Active 08/31/2016 [facility] sodium chloride 0.9% 1000 ml INJ 1,000 mL 1,000 mL, Rate: 75 ml/hr, Infuse over: 13.3 hr, Route: IV, Dosing Weight 75.455 kg, Total Volume: 1,000, Start date: 08/30/16 16:44:00 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, Duration: 30 day, Stop date: 09/29/16 16:43:00 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 No Longe r Active 08/30/2016 [facility] Levi 24 gm packet Notes: (Corey e as: Levi Colon) No Longer Active 08/30/2016 [facility] pantoprazole Notes: Tablet miles uld not be chewed or crushed. (Same as: Protonix) N o Longer Active 08/30/2016 [facility] Levi 24 gram Levi 24 gram, S ee Instructions, 1-3 packets daily with meals, # 1 box, Refill(s) 1 Active 08/30/2016 [facility] meropenem 1 g intravenous injection 1 gm, IV, Q24H, X 10 day, # 1 box, 0 Refill(s) Active 08/30/2016 [facility] fluconazole 100 mg oral tablet 100 mg = 1 tab, PO, [id number], 0 Refill(s) No Longer Active 08/30/2016 [facility] Alprazolam 1 MG Oral Tablet [Xanax] 1 mg = 1 tab, PO, BID, 0 Refill(s) No Longer Active 08/30/2016 [facility] Diflucan Notes: (Same as: Difl ucan) Do not refrigerate Inactive 08/30/2016 [facility] meropenem Notes: Same as Barak m MEDICATION WASTE Product Size: 500 mg Product Wasted: ___ mg No Longer Active 08/30/2016 [facility] metoprolol tartrate Notes: (Sa me as: Lopressor) No Longer Active 08/30/2016 [facility] Methadone Notes: (Same as: Dol ophine) No Longer Active 08/30/2016 [facility] Folic Acid Notes: (Same as: Fo lvite) No Longer Active 08/30/2016 [facility] ferrous sulfate Notes: Give wi th food. "Do Not Crush" No Longer Active 08/30/2016 [facility] Santyl Notes: (Same As: Santyl) No Longer Active 08/30/2016 [facility] Alprazolam 1 MG Oral Tablet [Xanax] Notes: With food or milk (Same as: Xanax) No Longe r Active 08/30/2016 [facility] heparin Notes: porcine heparin No Longer Active 08/30/2016 [facility] tolterodine Notes: Do Not Elie h. (Same As: Detrol LA) No Longer Active 08/30/2016 [facility] tizanidine Notes: (Same As: Za naflex) No Longer Active 08/30/2016 [facility] Kayexalate Notes: (sodium poly styrene sulfonate 15 gm/60 ml SOLITARIO) Shake well before use. 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 Inactive 08/30/2016 [facility] Zosyn Notes: (Same as: Zosyn) Dosing based on Piperacillin component MEDICATION WASTE Product Size: 3375 mg Product Wasted: __0 mg Inactive 08/30/2016 [facility] Ondansetron Notes: (Same as: Kory davis) MEDICATION WASTE Product Size: 4 mg Product Wasted: ___ mg No Longer Active 08/30/2016 [facility] Docusate Notes: (Same as: Cola ce) (Do Not Crush) No Longer Active 08/30/2016 [facility] Morphine Notes: (Same as:MORPh ine Sulfate) No Longer Active 08/30/2016 [facility] Acetaminophen Notes: Do not ex ceed 4 gm/day. (Same as: Tylenol) No Longer Active 08/30/2016 [facility] Hydromorphone Notes: Same as: Dilaudid Inactive 08/30/2016 [facility] Vancomycin 2001 mg: infuse ov er 2.5 hours MEDICATION WASTE Product Size: 1000 mg Product Wasted: ___ mg Inactive 08/30/2016 [facility] Dilaudid 1 mg, Route: IV, ONCE , Dosing Weight 78.182, kg, Priority: STAT, Start date: 08/30/16 1:10:00 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, Stop date: 08/30/16 1:10:00 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 Inactive 08/30/2016 [facility] Sodium Chloride 0.154 MEQ/ML Injectable Solution 2,000 mL, 2000 ml/hr, Infuse Over: 1 hr, Route: IV, 2,000, Drug form: INJ, ONCE, Priority: STAT, Dosing Weight 78.182 kg, Start date: 08/30/16 0:15:00 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, Duration: 1 doses or times, Stop date: 08/30/16 0:15:00 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 Inactive 08/30/2016 [facility] meropenem Notes: (Same as: Sandy rem) . MEDICATION WASTE Product Size: 1000 mg Product Wasted: ___ mg Inactive 08/30/2016 [facility] Zosyn 4.5 gm, Route: IVPB, ONC E, Dosing Weight 78.182, kg, Priority: STAT, Start date: 08/30/16 0:11:00 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, Stop date: 08/30/16 0:11:00 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 Inactive 08/30/2016 [facility] Rocephin Notes: (Same As: Roce phin). Use with 100 mL NS and infuse over 30 min MEDICATION WASTE Product Size: 1000 mg Product Wasted: ___ mg Inactive 08/30/2016 [facility] Saline Flush 0.9% Notes: (Same as: BD Posiflush) No Longer Active 08/30/2016 [facility] Sodium Chloride 0.154 MEQ/ML Injectable Solution 1,000 mL, 1000 ml/hr, Infuse Over: 1 hr, Route: IV, 1,000, Drug form: INJ, ONCE, Priority: STAT, Dosing Weight 70.455 kg, Start date: 08/29/16 23:04:00 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, Duration: 1 doses or times, Stop date: 08/29/16 23:04:00 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 Inactive 08/30/2016 [facility] Sodium polystyrene sulfonate 250 MG/ML O ral Suspension [Kayexalate] 15 gm, PO, QID, # 100 gm, 0 Refill(s) Active 08/24/2016 [facility] Saline Flush 0.9% Notes: (Same as: BD Posiflush) Inactive 08/23/2016 [facility] metoprolol tartrate 25 mg oral tablet 12.5 mg = 0.5 tab, PO, Q12H, # 30 tab, 0 Refill(s), other Active 08/23/2016 [facility] Folic Acid 1 MG Oral Tablet 1 mg = 1 tab, PO, Daily, # 30 tab, 0 Refill(s), other Active 08/23/2016 [facility] ferrous sulfate 325 mg oral enteric coated tablet 325 mg = 1 tab, PO, Daily, # 30 tab, 0 Refill(s), other Active 08/23/2016 [facility] Docusate Sodium 100 MG Oral Capsule 100 mg = 1 cap, PO, BID, PRN Constipation, # 20 cap, 0 Refill(s), other Active 08/23/2016 [facility] Imdur Notes: (Same as:Imdur) " Do Not Crush" Take on empty stomach/ full glass of water. Do not crush Inactive 08/23/2016 [facility] enalapril 10 mg, Route: PO, Dr ug form: TAB, Daily, Dosing Weight 70.455, kg, Start date: 08/23/16 9:00:00 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, Duration: 30 day, Stop date: 09/21/16 9:00:00 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 No Longer Active 08/23/2016 [facility] tolterodine 4 mg oral capsule, extended release 4 mg = 1 cap, PO, Daily, # 30 cap, 0 Refill(s) Active 08/23/2016 [facility] Alprazolam 1 MG Oral Tablet [Xanax] 1 mg = 1 tab, PO, BID, X 7 day, # 14 tab, 0 Refill(s) Active 08/23/2016 [facility] Hydralazine Hydrochloride 25 MG Oral Tablet Notes: (Same as: Apresoline) May interfere w/enteral feedings Take With Food. No Longer Active 08/22/2016 [facility] metoprolol extended release No tru: (Same as: Toprol XL) May split tab, but do not crush. No Longer Active 08/22/2016 [facility] Aquaphor Healing Notes: (Same as: Eucerin) No Longer Active 08/21/2016 [facility] Dextrose 50% Syringe 25 gm, 50 mL, Route: IVP, Drug Form: INJ, Dosing Weight 70.455, kg, ONCE, Start date: 08/20/16 12:38:00 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, Stop date: 08/20/16 12:38:00 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 Inactive 08/20/2016 [facility] Insulin regular Notes: (Same a s: Humulin R and NovoLIN R) WASTE: F/P - Black; E - Municipal Trash Bin (Do not shake) Inactive 08/20/2016 [facility] Sodium polystyrene sulfonate N otes: (sodium polystyrene sulfonate 15 gm/60 ml SOLITARIO) Shake well before use. (Same as: Kayexalate, SPS) Inactive 08/20/2016 [facility] Lyrica Notes: (Same as: Lyrica) No Longer Active 08/20/2016 [facility] Methadone Notes: (Same as: Dol ophine) Inactive 08/20/2016 [facility] metoprolol tartrate Notes: (Sa me as: Lopressor) No Longer Active 08/20/2016 [facility] Tylenol Notes: Do not exceed 4 gm/day. (Same as: Tylenol) No Longer Active 08/19/2016 [facility] Roxicodone Notes: (Same as: Ro xicodone) No Longer Active 08/19/2016 [facility] Acetaminophen 325 MG / Oxycodone Hydroch loride 10 MG Oral Tablet [Percocet 10/325] 1 tab, Route: PO, Drug Form: TAB, Dosing Weight 70.455, kg, Q4H, PRN Pain Score 4-6, Start date: 08/19/16 17:37:00 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, Duration: 30 day, Stop date: 09/18/16 17:36:00 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 Inactive 08/19/2016 [facility] Metoprolol Notes: (Same as: Kesha pressor) Push over 2 minutes No Longer Active 08/19/2016 [facility] D5W 1/2NS 1,000 mL 1,000 mL, R ate: 75 ml/hr, Infuse over: 13.3 hr, Route: IV, Dosing Weight 70.455 kg, Total Volume: 1,000, Priority: STAT, Start date: 08/19/16 13:42:00 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, Duration: 30 day, Stop date: 09/18/16 13:41:00 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 No Longe r Active 08/19/2016 [facility] Naloxone Notes: (Same as: Narc an) MEDICATION WASTE Product Size: 2 mg Product Wasted: ___ mg No Longer Active 08/19/2016 [facility] Metoprolol Notes: (Same as: Kesha pressor) Push over 2 minutes Inactive 08/19/2016 [facility] Alprazolam Notes: With food or milk (Same as: Xanax) No Longer Active 08/18/2016 [facility] Kayexalate Notes: (sodium poly styrene sulfonate 15 gm/60 ml SOLITARIO) Shake well before use. (Same as: Kayexalate, SPS) Inactive 08/18/2016 [facility] Sodium polystyrene sulfonate N otes: (sodium polystyrene sulfonate 15 gm/60 ml SOLITARIO) Shake well before use. (Same as: Kayexalate, SPS) Inactive 08/18/2016 [facility] sodium bicarbonate 8.4% Notes: (sodium bicarb 8.4% (1 mEq/ml) 50 ml syringe) Inactiv e 08/18/2016 [facility] Dextrose 50% Syringe 25 gm, 50 mL, Route: IVP, Drug Form: INJ, Dosing Weight 70.455, kg, ONCE, Start date: 08/18/16 9:03:00 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, Stop date: 08/18/16 9:03:00 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 Inactive 08/18/2016 [facility] Calcium Gluconate Notes: WASTE : F/P - Sink; E - Municipal Trash Bin Inactive 08/18/2016 [facility] Insulin regular Notes: (Same a s: Humulin R and NovoLIN R) WASTE: F/P - Black; E - Municipal Trash Bin (Do not shake) Inactive 08/18/2016 [facility] dexamethasone (ANES) Route: IV , Drug form: INJ, ONCE, Stop date: 08/17/16 17:41:00 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 Inactive 08/17/2016 [facility] esmolol (ANES) Route: IV, Drug form: INJ, ONCE, Stop date: 08/17/16 17:32:00 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 Inactive 08/17/2016 [facility] ondansetron (ANES) Route: IV, Drug form: INJ, ONCE, Stop date: 08/17/16 17:32:00 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 Inactive 08/17/2016 [facility] lidocaine (ANES) Route: IV, Dr ug form: INJ, ONCE, Stop date: 08/17/16 17:22:00 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 Inactive 08/17/2016 [facility] propofol (ANES) Route: IV, Arden g form: INJ, ONCE, Stop date: 08/17/16 17:22:00 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 Inactive 08/17/2016 [facility] fentaNYL (ANES) Route: IV, Arden g form: INJ, ONCE, Stop date: 08/17/16 17:22:00 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 Inactive 08/17/2016 [facility] midazolam (ANES) Route: IV, Dr ug form: SOLN, ONCE, Stop date: 08/17/16 17:22:00 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 Inactive 08/17/2016 [facility] Ondansetron 4 mg, Route: IVP, ONCE, Dosing Weight 70.455, kg, PRN Nausea & Vomiting, Start date: 08/17/16 17:01:00 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 Inactive 08/17/2016 [facility] Fentanyl Notes: (Same as: Subl imaze) Preservative free. Inactive 08/17/2016 [facility] Naloxone 0.4 mg, Route: IVP, Q 2MIN, Dosing Weight 70.455, kg, PRN Narcotic Reversal, Start date: 08/17/16 17:01:00 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, Duration: 8 doses or times, Stop date: Limited # of times Inactive 08/17/2016 [facility] Flumazenil 0.2 mg, Route: IVP, PRN, Dosing Weight 70.455, kg, PRN Benzodiazepine Reversal, Initial dose, Start date: 08/17/16 17:01:00 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, Duration: 30 day, Stop date: 09/16/16 17:00:00 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 Inactive 08/17/2016 [facility] Labetalol 10 mg, Route: IVP, Q 5Min, Dosing Weight 70.455, kg, PRN Elevated BP, Start date: 08/17/16 17:01:00 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, Duration: 5 doses or times, Stop date: Limited # of times Inactive 08/17/2016 [facility] Oxycodone 5 mg, Route: PO, Arden g form: TAB, Q4H, Dosing Weight 70.455, kg, PRN Pain Score 4-6, Start date: 08/17/16 17:01:00 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, Duration: 30 day, Stop date: 09/16/16 17:00:00 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 Inactive 08/17/2016 [facility] Ketorolac 30 mg, Route: IVP, O NCE, Dosing Weight 70.455, kg, Start date: 08/17/16 17:01:00 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, Duration: 1 doses or times, Stop date: 08/17/16 17:01:00 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 Inactive 08/17/2016 [facility] Hydromorphone 0.5 mg, Route: I PLASTIC WORKER, Q5Min, Dosing Weight 70.455, kg, PRN Pain Score 7-10, Start date: 08/17/16 17:01:00 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, Duration: 4 doses or times, Stop date: Limited # of times Inactive 08/17/2016 [facility] Hydralazine 10 mg, Route: IVP, Q20Min, Dosing Weight 70.455, kg, PRN Elevated BP, Start date: 08/17/16 17:01:00 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, Duration: 2 doses or times, Stop date: Limited # of times Inactive 08/17/2016 [facility] LR 1000 mL INJ (ANES) Route: I V, Total Volume: 1,000, Start date: 08/17/16 16:25:00 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, Stop date: 08/17/16 17:25:00 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 Inactive 08/17/2016 [facility] Alprazolam 1 MG Oral Tablet No tru: With food or milk (Same as: Xanax) No Longer Active 08/17/2016 [facility] Detrol LA Notes: Do Not Crush. (Same As: Detrol LA) No Longer Active 08/17/2016 [facility] Santyl 1 appl, Route: TOP, Aicha ly, Start date: 08/17/16 9:00:00 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, Duration: 30 day, Stop date: 09/15/16 9:00:00 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 No Longer Active 08/17/2016 [facility] Sodium Chloride 0.154 MEQ/ML Injectable Solution 1,000 mL, Rate: 100 ml/hr, Infuse over: 10 hr, Route: IV, Dosing Weight 70.455 kg, Total Volume: 1,000, Start date: 08/16/16 21:11:00 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, Duration: 30 day, Stop date: 09/15/16 21:10:00 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 No Longer Active 08/17/2016 [facility] Amitriptyline 50 mg, Route: PO , Drug form: TAB, Bedtime, Dosing Weight 70.455, kg, Start date: 08/16/16 21:00:00 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, Duration: 30 day, Stop date: 09/14/16 21:00:00 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 Inactive 08/17/2016 [facility] Methadone Notes: (Same as: Dol ophine) No Longer Active 08/16/2016 [facility] Alprazolam 1 MG Oral Tablet [Xanax] 1 mg, 1 tab, Route: PO, Drug form: TAB, BID, Dosing Weight 70.455, kg, Start date: 08/16/16 17:00:00 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, Duration: 30 day, Stop date: 09/15/16 9:00:00 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 Inactive 08/16/2016 [facility] Calcium Chloride 0.0014 MEQ/ML / Potassi um Chloride 0.004 MEQ/ML / Sodium Chloride 0.103 MEQ/ML / Sodium Lactate 0.028 MEQ/ML Injectable Solution 1,000 mL, Rate: 25 ml/hr, Infuse over: 4 0 hr, Route: IV, Dosing Weight 70.455 kg, Total Volume: 1,000, Start date: 08/16/16 10:44:00 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, Duration: 30 day, Stop date: 09/15/16 10:43:00 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 Inactive 08/16/2016 [facility] Sodium Chloride 0.154 MEQ/ML Injectable Solution 1,000 mL, Rate: 25 ml/hr, Infuse over: 40 hr, Route: IV, Dosing Weight 70.455 kg, Total Volume: 1,000, Start date: 08/16/16 10:44:00 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, Duration: 30 day, Stop date: 09/15/16 10:43:00 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 Inactive 08/16/2016 [facility] ciprofloxacin (ANES) Route: IV , Drug form: INJ, ONCE, Stop date: 08/16/16 9:51:00 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 Inactive 08/16/2016 [facility] Docusate Sodium 100 MG Oral Capsule 100 mg = 1 cap, PO, BID, PRN Constipation, # 20 cap, 0 Refill(s) On Hold 08/16/2016 [facility] metoprolol tartrate 25 mg oral tablet 12.5 mg = 0.5 tab, PO, Q12H, # 30 tab, 0 Refill(s) On Hold 08/16/2016 [facility] Folic Acid 1 MG Oral Tablet 1 mg = 1 tab, PO, Daily, # 30 tab, 0 Refill(s) On Hold 08/16/2016 [facility] ferrous sulfate 325 mg oral enteric coated tablet 325 mg = 1 tab, PO, Daily, # 30 tab, 0 Refill(s) On Hold 08/16/2016 [facility] ondansetron (ANES) Route: IV, Drug form: INJ, ONCE, Stop date: 08/16/16 9:44:00 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 Inactive 08/16/2016 [facility] propofol (ANES) Route: IV, Arden g form: INJ, ONCE, Stop date: 08/16/16 9:39:00 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 Inactive 08/16/2016 [facility] lidocaine (ANES) Route: IV, Dr ug form: INJ, ONCE, Stop date: 08/16/16 9:39:00 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 Inactive 08/16/2016 [facility] fentaNYL (ANES) Route: IV, Arden g form: INJ, ONCE, Stop date: 08/16/16 9:14:00 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 Inactive 08/16/2016 [facility] midazolam (ANES) Route: IV, Dr ug form: SOLN, ONCE, Stop date: 08/16/16 9:14:00 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 Inactive 08/16/2016 [facility] LR 1000 mL INJ (ANES) Route: I V, Total Volume: 1,000, Start date: 08/16/16 8:19:00 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, Stop date: 08/16/16 9:19:00 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 Inactive 08/16/2016 [facility] 200 ML Ciprofloxacin 2 MG/ML Injection [Cipro] Notes: Do not refrigerate Inactive 08/16/2016 [facility] metoprolol tartrate Notes: (Sa me as: Lopressor) No Longer Active 08/16/2016 [facility] Dilaudid 0.5 mg, 0.5 mL, Route : IVP, Drug form: INJ, Q4H, Dosing Weight 70.455, kg, PRN Pain Score 7-10, Start date: 08/15/16 9:11:00 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, Duration: 30 day, Stop date: 09/14/16 9:10:00 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 No Longer Active 08/15/2016 [facility] folic acid 1 mg oral tablet No tru: (Same as: Folvite) No Longer Active 08/15/2016 [facility] ferrous sulfate Notes: Give wi th food. "Do Not Crush" No Longer Active 08/15/2016 [facility] Hemocyte-F 1 tab, Route: PO, D osing Weight 70.455, kg, Daily, Start date: 08/15/16 9:00:00 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, Duration: 30 day, Stop date: 09/13/16 9:00:00 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 No Longer Active 08/15/2016 [facility] potassium chloride Notes: (Corey e as: K-Dur 20) "Do Not Crush" With food and full glass of water Inactive 08/14/2016 [facility] RN- Do not give Vanc till trough drawn 08/14/16 @ 00:30 RN- Do not give Vanc till trough drawn 08/14/16 @ 00:30, Attn:MILA, Drug form: MISC, Route: MISC, ONCE, 08/14/16 0:00:00 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, Stop date: 08/14/16 0:00:00 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 No Longer Active 08/14/2016 [facility] colistimethate + sodium chloride 0.9% INJ 100 mL Notes: (Same As: Coly-Mycin) No Longe r Active 08/14/2016 [facility] Santyl Notes: (Same As: Santyl) No Longer Active 08/13/2016 [facility] Streptococcus pneumoniae serotype 1 caps ular antigen diphtheria [id number] protein conjugate vaccine / Streptococcus pneumoniae serotype 14 capsular antigen diphtheria [id number] protein conjugate vaccine / Streptococcus pneumoniae serotype 18C capsular antigen d Notes: Lightly roll vial (DO NOT SHAKE) before administration. (Same as: Prevnar 13) Inactive 08/13/2016 [facility] pregabalin Notes: (Same as: Ly steve) No Longer Active 08/13/2016 [facility] Santyl Notes: (Same As: Santyl) No Longer Active 08/13/2016 [facility] Amitriptyline Notes: (Same as: Elavil) No Longer Active 08/13/2016 [facility] Alprazolam 1 MG Oral Tablet [Xanax] Notes: With food or milk (Same as: Xanax) No Longe r Active 08/13/2016 [facility] Acetaminophen 325 MG / Hydrocodone Micheal trate 10 MG Oral Tablet [Boxford 10/325] Notes: Do not exceed 4gm/day of acetamin ophen. (Same as: Boxford 325/10) No Longer Active 08/12/2016 [facility] Morphine Notes: (Same as:MORPh ine Sulfate) No Longer Active 08/12/2016 [facility] Levi 24 gm packet Notes: (Corey e as: Levi Horsham) No Longer Active 08/12/2016 [facility] pantoprazole Notes: Tablet miles uld not be chewed or crushed. (Same as: Protonix) N o Longer Active 08/12/2016 [facility] tizanidine Notes: (Same As: Za naflex) No Longer Active 08/12/2016 [facility] Ondansetron Notes: (Same as: Kory davis) MEDICATION WASTE Product Size: 4 mg Product Wasted: ___ mg No Longer Active 08/12/2016 [facility] Enoxaparin Notes: (Same as: Lo venox) No Longer Active 08/12/2016 [facility] Vancomycin 2001 mg: infuse ov er 2.5 hours MEDICATION WASTE Product Size: 1000 mg Product Wasted: ___ mg No Longer Active 08/12/2016 [facility] Rocephin Notes: (Same As: Roce phin). Use with 100 mL NS and infuse over 30 min MEDICATION WASTE Product Size: 1000 mg Product Wasted: ___ mg No Longer Active 08/12/2016 [facility] Docusate Notes: (Same as: Cola ce) (Do Not Crush) No Longer Active 08/12/2016 [facility] Morphine Notes: (Same as:MORPh ine Sulfate) Inactive 08/12/2016 [facility] Ondansetron Notes: (Same as: Kory davis) MEDICATION WASTE Product Size: 4 mg Product Wasted: ___ mg Inactive 08/12/2016 [facility] Saline Flush 0.9% Notes: (Same as: BD Posiflush) No Longer Active 08/12/2016 [facility] Sodium Chloride 0.154 MEQ/ML Injectable Solution 1,000 mL, Rate: 50 ml/hr, Infuse over: 20 hr, Route: IV, Dosing Weight 70.455 kg, Total Volume: 1,000, Start date: 08/12/16 0:07:00 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, Stop date: 09/11/16 0:06:00 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 No Longer Active 08/12/2016 [facility] Valium Notes: (Same as: Valium) Inactive 08/12/2016 [facility] Gentamicin Sulfate (FCI) Notes : TIME CRITICAL MEDICATION (Same as Garamycin) Inactive 08/11/2016 [facility] Zofran 4 mg, Route: IVP, Drug form: INJ, ONCE, Dosing Weight 70.455, kg, Priority: STAT, Start date: 08/11/16 11:41:00 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, Stop date: 08/11/16 11:41:00 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 Inactive 08/11/2016 [facility] Sodium Chloride 0.154 MEQ/ML Injectable Solution 1,000 mL, 1,000 ml/hr, Infuse Over: 1 hr, Route: IV, ONCE, Priority: STAT, Dosing Weight 70.455 kg, Start date: 08/11/16 11:40:00 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, Duration: 1 doses or times, Stop date: 08/11/16 11:40:00 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 Inactive 08/11/2016 [facility] promethazine 25 mg oral tablet 25 mg = 1 tab, PO, Q6H, PRN Nausea/Vomiting, FOR BREAK THROUGH NAUSEA OR VOMITING, X 3 day, # 12 tab, 0 Refill(s) On Hold 08/11/2016 [facility] Imodium A-D Notes: (Same as: I modium) MAX adult dose is 8 caps/day Inactive 08/11/2016 [facility] Promethazine Notes: Do not giv e IV push. (Same as: Phenergan) Inactive 08/11/2016 [facility] Ondansetron 4 MG Disintegrating Tablet [Zofran] 4 mg = 1 tab, PO, BID, PRN Nausea and Vomiting, Dissolve tab under tongue, X 5 day, # 10 tab, 0 Refill(s) On Hold 08/10/2016 [facility] Ondansetron Notes: (Same as: Z ofran) MEDICATION WASTE Product Size: 4 mg Product Wasted: ___ mg Inactive 08/10/2016 [facility] Saline Flush 0.9% Notes: Same as: BD Posiflush Sterile Inactive 08/10/2016 [facility] Sodium Chloride 0.154 MEQ/ML Injectable Solution 1,000 mL, 1000 ml/hr, Infuse Over: 1 hr, Route: IV, 1,000, Drug form: INJ, ONCE, Priority: STAT, Dosing Weight 77.273 kg, Start date: 08/10/16 4:48:00 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, Duration: 1 doses or times, Stop date: 08/10/16 4:48:00 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 Inactive 08/10/2016 [facility] Amitriptyline Notes: (Same as: Elavil) Inactive 06/13/2016 [facility] Alprazolam 1 MG Oral Tablet [Xanax] Notes: With food or milk (Same as: Xanax) Inactive 06/12/2016 [facility] Metronidazole 500 MG Oral Tablet 500 mg = 1 tab, PO, [id number], 0 Refill(s) Active 06/12/2016 [facility] colistimethate 150 mg injection See Instructions, 150 mg IV daily, # 1,500 mg, 0 Refill(s), 10 day Active 06/12/2016 [facility] Piperacillin 3000 MG / tazobactam 375 MG Injection [Zosyn] 3.375 gm, IV, Q6H, X 10 day, # 40 doses or times, 0 Refill(s) Active 06/12/2016 [facility] amitriptyline 50 mg oral tablet 50 mg = 1 tab, PO, Bedtime, 0 Refill(s) Active 06/12/2016 [facility] Alprazolam 1 MG Oral Tablet [Xanax] 1 mg = 1 tab, PO, BID, 0 Refill(s) Active 06/12/2016 [facility] Sodium Chloride 0.9% IV IVPB, 250 ml/hr, ONCE, Start date: 06/11/16 21:50:00 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, 250 ml Inactive 06/12/2016 [facility] Zosyn Notes: (Same as: Zosyn) Dosing based on Piperacillin component MEDICATION WASTE Product Size: 3375 mg Product Wasted: ___ mg No Longer Active 06/11/2016 [facility] colistimethate + sodium chloride 0.9% INJ 100 mL Notes: (Same As: Coly-Mycin) No Longe r Active 06/11/2016 [facility] Flagyl Notes: (Same as: Flagyl ) Take with food/ avoid alcohol No Longer Active 06/10/2016 [facility] sodium chloride 0.9% 1000 ml INJ 1,000 mL 1,000 mL, Rate: 125 ml/hr, Infuse over: 8 hr, Route: IV, Dosing Weight 83.182 kg, Total Volume: 1,000, Start date: 06/10/16 10:29:00 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, Duration: 30 day, Stop date: 07/10/16 10:28:00 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 No Longe r Active 06/10/2016 [facility] Zyvox Notes: Protect from ligh t. (Same as: Zyvox) No Longer Active 06/06/2016 [facility] Magnesium Sulfate Notes: WASTE : F/P - Sink; E - Municipal Trash Bin Inactive 06/05/2016 [facility] fluconazole 200 mg oral tablet 200 mg = 1 tab, PO, [id number], X 11 day, # 11 tab, 0 Refill(s) No Longer Active 06/04/2016 [facility] levofloxacin 500 mg oral tablet 500 mg = 1 tab, PO, [id number], X 11 day, # 11 tab, 0 Refill(s) No Longer Active 06/04/2016 [facility] Levaquin 500 mg, 1 tab, Route: PO, Drug form: TAB, [id number], Dosing Weight 83.182, kg, Start date: 06/03/16 22:00:00 CDT, Duration: 30 day, Stop date: 07/02/16 22:00:00 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 No Longer Active 06/04/2016 [facility] Fluconazole Notes: (Same as: D iflucan) No Longer Active 06/04/2016 [facility] Albuterol 0.83 MG/ML Inhalant Solution Notes: SEE RT DOCUMENTATION (Same as: Proventil) No Longer Active 06/03/2016 [facility] Amitriptyline Notes: (Same as: Elavil) No Longer Active 06/03/2016 [facility] pantoprazole Notes: Tablet miles uld not be chewed or crushed. (Same as: Protonix) N o Longer Active 06/02/2016 [facility] vancomycin + sodium chloride 0.9% INJ 250 mL 2001 mg: infuse over 2.5 hours MEDICATION WASTE Product Size: 1000 mg Product Wasted: ___ mg No Longer Active 06/02/2016 [facility] Methadone Notes: (Same as: Dol ophine) No Longer Active 06/02/2016 [facility] Ergocalciferol 55203 UNT Oral Capsule Notes: (Same as: Vitamin D) "Do Not Crush" No Longer Active 06/02/2016 [facility] Santyl Notes: (Same As: Santyl) No Longer Active 06/02/2016 [facility] Alprazolam 2 MG Oral Tablet [Xanax] Notes: With food or milk (Same as: Xanax) No Longe r Active 06/02/2016 [facility] tizanidine Notes: (Same As: Za naflex) No Longer Active 06/02/2016 [facility] pregabalin Notes: (Same as: Ly steve) No Longer Active 06/02/2016 [facility] Vancomycin 2001 mg: infuse ov er 2.5 hours MEDICATION WASTE Product Size: 1000 mg Product Wasted: ___ mg Inactive 06/02/2016 [facility] Piperacillin / tazobactam Note s: (Same as: Zosyn) Dosing based on Piperacillin component MEDICATION WASTE Product Size: 3375 mg Product Wasted: ___ mg No Longer Active 06/02/2016 [facility] Zofran Notes: (Same as: Zofran ) MEDICATION WASTE Product Size: 4 mg Product Wasted: ___ mg No Longer Active 06/02/2016 [facility] morphine Sulfate Notes: (Same as:MORPhine Sulfate) No Longer Active 06/02/2016 [facility] enoxaparin 30 mg/0.3 mL subcutaneous solution 30 mg = 0.3 ml, SUB-Q, Daily, # 14 syr, 0 Refill(s) Active 06/02/2016 [facility] Piperacillin 3000 MG / tazobactam 375 MG Injection [Zosyn] 3.375 gm, IV, Q6H, # 40 doses or times, 0 Refill(s) No Longer Active 06/02/2016 [facility] tizanidine 4 mg oral capsule 4 mg = 1 cap, PO, TID, # 90 cap, 0 Refill(s) Active 06/02/2016 [facility] Ondansetron 2 MG/ML Injectable Solution [Zofran] 4 mg, IV, Q8H, PRN as needed for nausea/vomiting, # 1 ea, 0 Refill(s) Active 06/02/2016 [facility] Dakins Quarter Strength Solution 0.125% topical TOP, BID, 0 Refill(s) Active 06/02/2016 [facility] Alprazolam 2 MG Oral Tablet [Xanax] 2 mg = 1 tab, PO, BID, # 20 tab, 0 Refill(s) No Longer Active 06/02/2016 [facility] acetaminophen 325 mg oral tablet 100.4 F, 2 tab PO QID 2 day, 0 Refill(s) Active 06/02/2016 [facility] Ergocalciferol [id number] UNT Oral Capsule 50,000 IntlUnit = 1 cap, PO, 2x/Wk, # 24 cap, 0 Refill(s) Active 06/02/2016 [facility] pregabalin 150 mg oral capsule 150 mg = 1 cap, PO, BID, # 60 cap, 0 Refill(s) Active 06/02/2016 [facility] Methadone 20 mg, PO, BID, 0 Re fill(s) Active 06/02/2016 [facility] vancomycin 1 g intravenous injection See Instructions, 1 gm IV Q24H 10 day, 0 Refill(s) No Longer Active 06/02/2016 [facility] Santyl 1 appl, TOP, Daily, 0 R efill(s) Active 06/02/2016 [facility] Macrodantin Notes: Not Recomme nded for patients with CrCl< 50 ml/min With food (Same as:Macrodantin) Inactive 06/01/2016 [facility] Enoxaparin 30 mg, Route: SUB-Q , Drug form: INJ, [id number], Dosing Weight 72.727, kg, Start date: 06/01/16 17:00:00 CDT, Duration: 30 day, Stop date: 07/01/16 5:00:00 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 (Same as: Tylenol) No Longer Active 06/01/2016 [facility] Macrobid Notes: Not Recommende d for patients with CrCl< 50 ml/min With food (Same as:Macrodantin) No Longer Active 06/01/2016 [facility] Albuterol 0.83 MG/ML Inhalant Solution Notes: SEE RT DOCUMENTATION (Same as: Proventil) Inactive 06/01/2016 [facility] Zosyn Notes: (Same as: Zosyn) Dosing based on Piperacillin component MEDICATION WASTE Product Size: 3375 mg Product Wasted: ___ mg Inactive 06/01/2016 [facility] Vancomycin 2001 mg: infuse ov er 2.5 hours MEDICATION WASTE Product Size: 1000 mg Product Wasted: ___ mg Inactive 06/01/2016 [facility] Sodium Chloride 0.154 MEQ/ML Injectable Solution 2,000 mL, 2,000 ml/hr, Infuse Over: 1 hr, Route: IV, 2,000, Drug form: INJ, ONCE, Priority: STAT, Dosing Weight 72.727 kg, Start date: 06/01/16 13:02:00 CDT, Duration: 1 doses or times, Stop date: 06/01/16 13:02:00 CDT Inactive 06/01/2016 [facility] Saline Flush 0.9% Notes: (Same as: BD Posiflush) No Longer Active 06/01/2016 [facility] ceftazidime-avibactam + sodium chloride 0.9% INJ 100 m L Notes: (Same as: Avycaz) Non-formulary Inactive 01/13/2016 [facility] nter Nexium 40 mg, Route: PO, Daily , Dosing Weight 70.2, kg, Start date: 01/12/16 9:00:00 CDT, Duration: 30 day, Stop date: 02/10/16 9:00:00 CDT No Longer Active 01/12/2016 [facility] Magnesium Sulfate Notes: WASTE : F/P - Sink; E - Municipal Trash Bin Inactive 01/12/2016 [facility] sodium chloride 0.9% INJ 250 mL 250 mL, Rate: 50 ml/hr, Infuse over: 5 hr, Route: IV, Dosing Weight 70.2 kg, Total Volume: 250, Start date: 01/11/16 17:12:00 CDT, Duration: 1 doses or times, Stop date: 01/11/16 22:11:00 CDT Inactive 01/11/2016 [facility] sodium chloride 0.9% INJ 250 mL 250 mL, Rate: 50 ml/hr, Infuse over: 5 hr, Route: IV, Dosing Weight 70.2 kg, Total Volume: 250, Start date: 01/11/16 17:06:00 CDT, Duration: 1 doses or times, Stop date: 01/11/16 22:05:00 CDT Inactive 01/11/2016 [facility] Protonix Notes: Tablet should not be chewed or crushed. (Same as: Protonix) No Longer Active 01/11/2016 [facility] nter lactobacillus rhamnosus GG Not es: Same as Culturelle No Longer Active 01/11/2016 [facility] Calcium Gluconate Notes: WASTE : F/P - Sink; E - Municipal Trash Bin No Longer Active 01/11/2016 [facility] nter lactobacillus acidophilus 1 ca p, Route: PO, Dosing Weight 70.2, kg, Daily, Start date: 01/11/16 13:00:00 CDT, Duration: 30 day, Stop date: 02/10/16 9:00:00 CDT Inactive 01/11/2016 [facility] nter Magnesium Sulfate Notes: WASTE : F/P - Sink; E - Municipal Trash Bin Inactive 01/11/2016 [facility] Amoxicillin 500 MG / Clavulanate 125 MG Oral Tablet [Augmentin 500-mg] 1 tab, PO, Q12H, X 6 week, # 84 tab, 0 R efill(s) Active 01/10/2016 [facility] fosfomycin 3 g oral powder = 1 Pack, PO, Q72H, # 15 pkg, 0 Refill(s) Active 01/10/2016 [facility] Acetaminophen 300 MG / Codeine Phosphate 30 MG Oral Tablet [Tylenol with Codeine #3] 2 tab, PO, Q4H, PRN Pain, X 7 day, # 84 tab, 0 Refill(s) Active 01/10/2016 [facility] pantoprazole 40 mg oral enteric coated tablet 40 mg = 1 tab, PO, Before Dinner, # 90 tab, 0 Refill(s) Active 01/10/2016 [facility] nt doxycycline hyclate 100 mg oral tablet 100 mg = 1 tab, PO, Q12H, X 6 week, # 84 tab, 0 Refill(s) Active 01/10/2016 [facility] nter avibactam / Ceftazidime Notes: (Same as: Avycaz) Non- formulary No Longer Active 01/09/2016 [facility] Methadone Notes: (Same as: Dol ophine) No Longer Active 01/09/2016 [facility] normal saline 0.9% IV 1,000 mL 1,000 mL, Rate: 75 ml/hr, Infuse over: 13.3 hr, Route: IV, Dosing Weight 70.2 kg, Total Volume: 1,000, Start date: 01/07/16 12:44:00 CDT, Duration: 30 day, Stop date: 02/06/16 12:43:00 CDT No Longer Active 01/07/2016 [facility] Miralax Notes: Dissolve in 8 o z of water or juice. (Same as: Miralax) No Longer Active 01/07/2016 [facility] avibactam / Ceftazidime Notes: (Same as: Avycaz) Non- formulary No Longer Active 01/06/2016 [facility] Magnesium Sulfate Notes: WASTE : F/P - Sink; E - Municipal Trash Bin Inactive 01/06/2016 [facility] Oxycontin Notes: Do not crush or chew. (Same as: OxyContin) No Longer Active 01/05/2016 [facility] Magnesium Oxide Notes: (Same a s: Mag-Ox 400) Magnesium oxide [id number] elemental magnesium Dose=____mg magnesium oxide (___mg elemental magnesium) Inactive 01/05/2016 [facility] Oxycontin Notes: Do not crush or chew. (Same as: OxyContin) No Longer Active 01/04/2016 [facility] Lyrica Notes: (Same as: Lyrica) No Longer Active 01/04/2016 [facility] Oxycodone Hydrochloride 5 MG Oral Tablet Notes: (Same as: Roxicodone) No Longer Active 01/03/2016 [facility] nter heparin Notes: porcine heparin No Longer Active 01/03/2016 [facility] colistimethate + Sodium Chloride 0.9% IV 100 mL Notes: (Same As: Coly-Mycin) No Longe r Active 01/03/2016 [facility] nter Oxycodone Hydrochloride 5 MG Oral Tablet Notes: (Same as: Roxicodone) Inactive 01/03/2016 [facility] Gentamicin Sulfate (FCI) Notes : TIME CRITICAL MEDICATION (Same as Garamycin) Inactive 01/03/2016 [facility] cefepime 1 gm, Route: IVPB, AB XQ12H, Dosing Weight 70.2, kg, (CrCl 30 - 49 ml/min), Start date: 01/03/16 11:00:00 CDT, Duration: 30 day, Stop date: 02/01/16 23:00:00 CDT Inactive 01/03/2016 [facility] nter Magnesium Sulfate Notes: WASTE : F/P - Sink; E - Municipal Trash Bin Inactive 01/03/2016 [facility] Docusate Sodium 50 MG / sennosides, FCI 8.6 MG Oral Tablet Notes: (Same as Senokot-S) Equiv. to Kareen-Colace. No Longer Active 01/03/2016 [facility] Oxycontin Notes: Do not crush or chew. (Same as: OxyContin) No Longer Active 01/03/2016 [facility] Amitriptyline Notes: (Same as: Elavil) No Longer Active 01/03/2016 [facility] Alprazolam 1 MG Oral Tablet [Xanax] Notes: With food or milk (Same as: Xanax) No Longe r Active 01/02/2016 [facility] nter Docusate Sodium 50 MG / sennosides, FCI 8.6 MG Oral Tablet Notes: (Same as Senokot-S) Equiv. to Kareen-Colace. No Longer Active 01/01/2016 [facility] pantoprazole Notes: Tablet miles uld not be chewed or crushed. (Same as: Protonix) N o Longer Active 01/01/2016 [facility] nter meropenem 1,000 mg, Route: IV, Q8H, Dosing Weight 70.2, kg, Start date: 01/01/16 16:00:00 CDT, Duration: 30 day, Stop date: 01/31/16 8:00:00 CDT Inactive 01/01/2016 [facility] Oxycodone Hydrochloride 5 MG Oral Tablet Notes: (Same as: Roxicodone) No Longer Active 01/01/2016 [facility] nter Oxycodone Hydrochloride 5 MG Oral Tablet Notes: (Same as: Roxicodone) No Longer Active 01/01/2016 [facility] nter amitriptyline 100 mg oral tablet 100 mg = 1 tab, PO, Bedtime, 0 Refill(s) Active 01/01/2016 [facility] Alprazolam 1 MG Oral Tablet [Xanax] 1 mg = 1 tab, PO, BID, 0 Refill(s) Active 01/01/2016 [facility] Acetaminophen 325 MG / Hydrocodone Micheal trate 10 MG Oral Tablet [Boxford 10/325] 1 tab, PO, Q4H, PRN for pain, 0 Refill(s ) No Longer Active 01/01/2016 [facility] meropenem + Sodium Chloride 0.9% IV 100 mL Notes: Same as Merrem MEDICATION WASTE Product Size: 500 mg Product Wasted: ___ mg Inactive 01/01/2016 [facility] meropenem 1,000 mg, Route: IV, Q8H, Dosing Weight 65.909, kg, Start date: 01/01/16 0:58:00 CDT, Duration: 30 day, Stop date: 01/31/16 0:00:00 CDT Inactive 01/01/2016 [facility] normal saline 0.9% IV 1,000 mL 1,000 mL, Rate: 100 ml/hr, Infuse over: 10 hr, Route: IV, Dosing Weight 65.909 kg, Total Volume: 1,000, Start date: 01/01/16 0:56:00 CDT, Duration: 30 day, Stop date: 01/31/16 0:55:00 CDT No Longer Active 01/01/2016 [facility] Oxycodone Hydrochloride 5 MG Oral Tablet Notes: (Same as: Roxicodone) Inactive 01/01/2016 [facility] Dilaudid Notes: Same as: Dilau did No Longer Active 01/01/2016 [facility] Sodium Chloride 0.154 MEQ/ML Injectable Solution 1,000 mL, 1,000 ml/hr, Infuse Over: 1 hr, Route: IV, 1,000, Drug form: INJ, ONCE, Priority: STAT, Dosing Weight 65.909 kg, Start date: 12/31/15 21:56:00 CDT, Duration: 1 doses or times, Stop date: 12/31/15 21:56:00 CDT Inactive 01/01/2016 [facility] Iohexol Notes: (same as:Omnipa que 350). WASTE: F/P - Black; E - Municipal Trash Bin Inactive 01/01/2016 [facility] nter Vancomycin 2001 mg: infuse ov er 2.5 hours MEDICATION WASTE Product Size: 1000 mg Product Wasted: 0 mg Inactive 01/01/2016 [facility] Morphine Notes: (Same as:MORPh ine Sulfate) Inactive 01/01/2016 [facility] Sodium Chloride 0.154 MEQ/ML Injectable Solution 2,000 mL, 2000 ml/hr, Infuse Over: 1 hr, Route: IV, 2,000, Drug form: INJ, ONCE, Priority: STAT, Dosing Weight 65.909 kg, Start date: 12/31/15 19:38:00 CDT, Duration: 1 doses or times, Stop date: 12/31/15 19:38:00 CDT Inactive 01/01/2016 [facility] collagenase topical 250 units/g ointment 1 appl, TOP, Daily, # 30 gm, 0 Refill(s) Active 10/20/2015 [facility] Acetaminophen 300 MG / Codeine Phosphate 30 MG Oral Tablet [Tylenol with Codeine #3] 1 tab, PO, Q4H, PRN Pain, X 7 day, # 42 tab, 0 Refill(s) Active 10/20/2015 [facility] COLLAGENASE Notes: (Same As: S antyl) Inactive 10/20/2015 [facility] Dilaudid Notes: (Same as: Dila udid) No Longer Active 10/20/2015 [facility] acetaminophen-hydrocodone 325 mg-10 mg oral tablet Notes: Do not exceed 4gm/day of acetaminophen. (Same as: Boxford 325/10) No Longer Active 10/20/2015 [facility] Levofloxacin Notes: Do not giv e w/antacids, dairy pdt & minerals Take 1 hr before or 2 hr after dairy products No Longer Active 10/19/2015 [facility] ceftazidime-avibactam + Sodium Chloride 0.9% IV 100 mL Notes: (Same as: Avycaz) Non-formulary No Longer Active 10/19/2015 [facility] docusate sodium 50 mg oral capsule Notes: (Same as: Colace) (Do Not Crush) No Longer Active 10/19/2015 [facility] Alprazolam 2 MG Oral Tablet 2 mg = 1 tab, PO, TID, PRN Anxiety, 0 Refill(s) No Longer Active 10/19/2015 [facility] avibactam / Ceftazidime 2.5 gm , IV, Q8H, 0 Refill(s) No Longer Active 10/19/2015 [facility] gabapentin 100 mg, PO, Q8H, 0 Refill(s) No Longer Active 10/19/2015 [facility] Hydromorphone Hydrochloride 4 MG Oral Tablet [Dilaudid ] 2 tabs, PO, Q6H, PRN Pain Score 7-10, 0 Refill(s) No Longer Active 10/19/2015 [facility] Acetaminophen 325 MG / Oxycodone Hydroch loride 10 MG Oral Tablet 2 tab, PO, Q6H, PRN for pain, 0 Refill(s) No Longer Active 10/19/2015 [facility] baclofen 10 mg oral tablet 10 mg = 1 tab, PO, Q6H, 0 Refill(s) No Longer Active 10/19/2015 [facility] Amitriptyline 50 mg, PO, Bedti me, 0 Refill(s) No Longer Active 10/19/2015 [facility] Lidocaine Viscous 2% mucous membrane solution Notes: (Same as: Xylocaine Viscous) N o Longer Active 10/19/2015 [facility] pantoprazole Notes: Tablet miles uld not be chewed or crushed. (Same as: Protonix) N o Longer Active 10/19/2015 [facility] Docusate Sodium 50 MG / sennosides, FCI 8.6 MG Oral Tablet 1 tab, Route: PO, Drug Form: TAB, Dosing Weight 72.727, kg, BID, PRN Constipation, Start date: 10/19/15 16:29:00, Duration: 30 day, Stop date: 11/18/15 16:28:00 Inactive 10/19/2015 [facility] acetaminophen 325 mg oral tablet Notes: Do not exceed 4 gm/day. (Same as: Tylenol) No Longer Active 10/19/2015 [facility] Sodium Chloride 0.154 MEQ/ML Inhalant Solution Notes: (Same as: BD Posiflush) No Longer Active 10/19/2015 [facility] senna 8.6 mg oral tablet Notes : (Same as: Senokot) No Longer Active 10/19/2015 [facility] heparin Notes: porcine heparin No Longer Active 10/19/2015 [facility] Ondansetron Notes: (Same as: Kory davis) MEDICATION WASTE Product Size: 4 mg Product Wasted: ___ mg No Longer Active 10/19/2015 [facility] Docusate Notes: (Same as: Cola ce) (Do Not Crush) No Longer Active 10/19/2015 [facility] Ativan 1 mg, Route: IVP, Drug form: INJ, ONCE, Dosing Weight 72.727, kg, PRN Anxiety, Start date: 10/19/15 4:44:00 Inactive 10/19/2015 [facility] Enoxaparin Notes: (Same as: Lo venox) Inactive 10/19/2015 [facility] Sodium Chloride 0.0769 MEQ/ML Injectable Solution 1,000 mL, Rate: 125 ml/hr, Infuse over: 8 hr, Route: IV, Dosing Weight 72.727 kg, Total Volume: 1,000, Start date: 10/19/15 2:30:00, Duration: 30 day, Stop date: 11/18/15 2:29:00 Inactive 10/19/2015 [facility] Saline Flush 0.9% Notes: (Same as: BD Posiflush) Inactive 10/19/2015 [facility] Ondansetron Notes: (Same as: Kory davis) MEDICATION WASTE Product Size: 4 mg Product Wasted: ___ mg Inactive 10/19/2015 [facility] Acetaminophen Notes: Do not ex ceed 4 gm/day. (Same as: Tylenol) Inactive 10/19/2015 [facility] Morphine Notes: (Same as:MORPh ine Sulfate) Inactive 10/19/2015 [facility] avibactam / Ceftazidime Notes: (Same as: Avycaz) Non- formulary Inactive 10/19/2015 [facility] Sodium Chloride 0.154 MEQ/ML Injectable Solution 1,000 mL, 1,000 ml/hr, Infuse Over: 1 hr, Route: IV, 1,000, Drug form: INJ, ONCE, Priority: STAT, Dosing Weight 72.727 kg, Start date: 10/19/15 0:57:00, Duration: 1 doses or times, Stop date: 10/19/15 0:57:00 Inactive 10/19/2015 [facility] avibactam / Ceftazidime 2.5 gm , Route: IV, Q8H, Dosing Weight 72.727, kg, Start date: 10/19/15 0:00:00, Stop date: 10/20/15 16:00:00 Inactive 10/19/2015 [facility] Epoetin Geetha Notes: (Same as: Procrit) epoetin geetha 10,000 unit/1 ml VL For non-dialysis use only. WASTE: F/P - Red; E -Red MEDICATION WASTE Product Size: 59163 unit Product Wasted: ___ unit Inactive 10/18/2015 [facility] Therapeutic Nutrition 24 gm packet Notes: (Same as: Levi Horsham) No Longer Active 10/17/2015 [facility] pantoprazole Notes: Tablet miles uld not be chewed or crushed. (Same as: Protonix) N o Longer Active 10/17/2015 [facility] Alprazolam 1 MG Oral Tablet No tru: With food or milk (Same as: Xanax) No Longer Active 10/17/2015 [facility] acetaminophen-hydrocodone 325 mg-10 mg oral tablet Notes: Do not exceed 4gm/day of acetaminophen. (Same as: [place] 325/10) No Longer Active 10/17/2015 [facility] avibactam / Ceftazidime Notes: (Same as: Avycaz) Non- formulary No Longer Active 10/17/2015 [facility] Baclofen Notes: (Same As: Fitz esal) No Longer Active 10/17/2015 [facility] gabapentin 100 MG Oral Capsule Notes: (Same as: Neurontin) No Longer Active 10/17/2015 [facility] oxyCODONE 10 mg extended release Notes: Do not crush or chew. (Same as: OxyContin) No Longer Active 10/17/2015 [facility] Amitriptyline Notes: (Same as: Elavil) No Longer Active 10/17/2015 [facility] Levofloxacin Notes: Do not giv e w/antacids, dairy pdt & minerals Take 1 hr before or 2 hr after dairy products Inactive 10/17/2015 [facility] Oxycodone Hydrochloride 5 MG Oral Tablet 30 mg, Route: PO, Drug form: TAB, Q6H, Dosing Weight 68.182, kg, PRN Pain Score 7-10, Start date: 10/16/15 18:51:00, Duration: 30 day, Stop date: 11/15/15 18:50:00 Inactive 10/16/2015 [facility] Dilaudid Notes: (Same as: Dila udid) No Longer Active 10/16/2015 [facility] Senokot Notes: (Same as: Senok ot) No Longer Active 10/16/2015 [facility] docusate sodium 50 mg oral capsule Notes: (Same as: Colace) (Do Not Crush) No Longer Active 10/16/2015 [facility] Senokot Notes: (Same as: Senok ot) Inactive 10/16/2015 [facility] docusate sodium 50 mg oral capsule Notes: (Same as: Colace) (Do Not Crush) Inactiv e 10/16/2015 [facility] Sodium Chloride 0.154 MEQ/ML Inhalant Solution Notes: (Same as: BD Posiflush) No Longer Active 10/16/2015 [facility] Ondansetron Notes: (Same as: Kory davis) MEDICATION WASTE Product Size: 4 mg Product Wasted: ___ mg No Longer Active 10/16/2015 [facility] acetaminophen 325 mg oral tablet Notes: Do not exceed 4 gm/day. (Same as: Tylenol) No Longer Active 10/16/2015 [facility] Docusate Sodium 50 MG / sennosides, FCI 8.6 MG Oral Tablet 1 tab, Route: PO, Drug Form: TAB, Dosing Weight 68.182, kg, BID, PRN Constipation, Start date: 10/16/15 18:13:00, Duration: 30 day, Stop date: 04/13/16 18:12:00 Inactive 10/16/2015 [facility] Acetaminophen 325 MG / Hydrocodone Micheal trate 10 MG Oral Tablet Notes: Do not exceed 4gm/day of acetamin ophen. (Same as: Boxford 325/10) Inactive 10/16/2015 [facility] senna 8.6 mg oral tablet 8.6 m g, 1 tab, Route: PO, Drug Form: TAB, Dosing Weight 68.182, kg, BID, PRN Constipation, Start date: 10/16/15 18:11:00, Duration: 30 day, Stop date: 11/15/15 18:10:00 Inactive 10/16/2015 [facility] Lovenox Notes: (Same as: Loven ox) No Longer Active 10/16/2015 [facility] Levi 24 gm packet 1 pkt, Rout e: PO, Dosing Weight 69.574, kg, BID, Start date: 10/16/15 17:00:00, Duration: 30 day, Stop date: 11/15/15 9:00:00 Inactive 10/16/2015 [facility] hydromorphone 2 mg oral tablet 4 mg = 2 tab, PO, Q6H, PRN Pain Score 7-10, 0 Refill(s) On Hold 10/16/2015 [facility] Alprazolam 1 MG Oral Tablet 2 mg = 2 tab, PO, TID, 0 Refill(s) On Hold 10/16/2015 [facility] amitriptyline 50 mg oral tablet 50 mg = 1 tab, PO, Bedtime, 0 Refill(s) On Hold 10/16/2015 [facility] Lidocaine Viscous 2% mucous membrane solution 0 Refill(s) On Hold 10/16/2015 [facility] gabapentin 100 MG Oral Capsule 100 mg = 1 cap, PO, Q8H, 0 Refill(s) On Hold 10/16/2015 [facility] Sodium Chloride 0.154 MEQ/ML Inhalant Solution 0.09 gm = 10 mL, IVP, PRN, PRN Line Flush, 0 Refill(s) On Hold 10/16/2015 [facility] epoetin geetha 10,000 units/mL preservativ e-free injectable solution 7,000 unit = 0.7 mL, SUB-Q, Q-M-W-F, 0 R efill(s) On Hold 10/16/2015 [facility] enoxaparin 40 mg/0.4 mL subcutaneous solution 40 mg = 0.4 mL, SUB-Q, [id number], 0 Refill(s) On Hold 10/16/2015 [facility] senna 8.6 mg oral tablet 8.6 m g = 1 tab, PO, BID, PRN Constipation, 0 Refill(s) On Hold 10/16/2015 [facility] ondansetron 2 mg/mL injectable solution 4 mg = 2 mL, IVP, Q6H, PRN Nausea & Vomiting, 0 Refill(s) On Hold 10/16/2015 [facility] avibactam 0.286417 MG/ML / Ceftazidime 0 .195580 MG/ML Injectable Solution [Avycaz] 2.5 gm =, IV, Q8H, # 10 bag, 0 Refill(s) , other On Hold 10/16/2015 [facility] Acetaminophen 325 MG / Hydrocodone Micheal trate 10 MG Oral Tablet 2 tab, PO, Q6H, PRN Other -See Comment, 0 Refill(s) On Hold 10/16/2015 [facility] levofloxacin 750 mg oral tablet 750 mg = 1 tab, PO, [id number], 0 Refill(s) On Hold 10/16/2015 [facility] COLLAGENASE 1 appl, TOP, Daily , 0 Refill(s) On Hold 10/16/2015 [facility] baclofen 20 mg oral tablet 10 mg = 0.5 tab, PO, Q6H, 0 Refill(s) On Hold 10/16/2015 [facility] acetaminophen 325 mg oral tablet 100.4 F, 0 Refill(s) On Hold 10/16/2015 [facility] hydromorphone 100 mg/100 mL-NaCl 0.9% in travenous solution 1 mg = 1 mL, IVP, Q6H, PRN Other -See Co mment, 0 Refill(s) On Hold 10/16/2015 [facility] lactobacillus rhamnosus GG PO, Daily, 0 Refill(s) On Hold 10/16/2015 [facility] pantoprazole 40 mg oral enteric coated tablet 40 mg = 1 tab, PO, Before Dinner, 0 Refill(s) On Hold 10/16/2015 [facility] Levaquin Notes: Do not give w/ antacids, dairy pdt & minerals Take 1 hr before or 2 hr after dairy products No Longer Active 10/13/2015 [facility] avibactam / Ceftazidime Notes: (Same as: Avycaz) Non- formulary No Longer Active 10/13/2015 [facility] Procrit Notes: (Same as: Procr it) epoetin geetha 10,000 unit/1 ml VL For non-dialysis use only. WASTE: F/P - Red; E -Red MEDICATION WASTE Product Size: 89737 unit Product Wasted: ___ unit No Longer Active 10/11/2015 [facility] colistimethate + Sodium Chloride 0.9% IV 100 mL Notes: (Same As: Coly-Mycin) Inactive 10/11/2015 [facility] Amikacin Notes: TIME CRITICAL MEDICATION (Same as: Amikin) MEDICATION WASTE Product Size: 1000 mg Product Wasted: ___ mg Inactive 10/11/2015 [facility] Sodium Chloride 0.9% IV 250 mL , Route: IVPB, Start date: 10/10/15 16:19:00, Duration: 30 day, Stop date: 11/09/15 17:18:00, PRN Line Flush No Longer Active 10/10/2015 [facility] BD Normal Saline Flush Notes: (Same as: BD Posiflush) No Longer Active 10/10/2015 [facility] Doxycycline Notes: (Same as: V ibramycin) No Longer Active 10/10/2015 [facility] Sodium Chloride 0.9% (titrate) 250 mL 250 mL, Rate: status controller for use with blood product administration, Dosing Weight 69.574, kg, Route: IV, Total Volume: 250, Start Date: 10/10/15 9:41:00, Duration: 30 day, Stop date: 11/09/15 9:40:00, Replace Every: 24 hr No Longer Active 10/10/2015 [facility] Sodium Chloride 0.9% (titrate) 250 mL 250 mL, Rate: status controller for use with blood product administration, Dosing Weight 69.574, kg, Route: IV, Total Volume: 250, Start Date: 10/10/15 9:13:00, Duration: 30 day, Stop date: 11/09/15 9:12:00, Replace Every: 24 hr Inactive 10/10/2015 [facility] Naloxone Notes: Same as Narcan Inactive 10/09/2015 [facility] Promethazine 6.25 mg, Route: I VPB, ONCE, Dosing Weight 69.574, kg, PRN Nausea & Vomiting, Start date: 10/09/15 14:52:00 Inactive 10/09/2015 [facility] Ondansetron Notes: (Same as: Kory davis) MEDICATION WASTE Product Size: 4 mg Product Wasted: ___ mg Inactive 10/09/2015 [facility] Hydromorphone 0.5 mg, 0.5 mL, Route: IVP, Drug form: INJ, Q5Min, Dosing Weight 69.574, kg, PRN Pain Score 7-10, Start date: 10/09/15 14:52:00, Duration: 4 doses or times, Stop date: Limited # of times Inactive 10/09/2015 [facility] Meperidine Notes: (Same As: De merol) Inactive 10/09/2015 [facility] Morphine Notes: (Same as:MORPh ine Sulfate) Inactive 10/09/2015 [facility] Flumazenil Notes: (Same as: Ro mazicon) Inactive 10/09/2015 [facility] Hydralazine Notes: (Same as: A presoline) Push over 5 minutes Inactive 10/09/2015 [facility] Metoprolol Notes: (Same as: Lo pressor) Push over 2 minutes Inactive 10/09/2015 [facility] Atropine Notes: MEDICATION WASTE Product Size: 0.4 mg Product Wasted: ___ mg Inactive 10/09/2015 [facility] Cefazolin Notes: Same as: Ancef No Longer Active 10/09/2015 [facility] Maxipime + Sodium Chloride 0.9% IV 100 mL Notes: (Same As: Maxipime) MEDICATION WASTE Product Size: 1000 mg Product Wasted: ___ mg No Longer Active 10/08/2015 [facility] colistimethate + Sodium Chloride 0.9% IV 100 mL Notes: (Same As: Coly-Mycin) No Longe r Active 10/08/2015 [facility] naloxone Notes: Same as Narcan Inactive 10/07/2015 [facility] Lovenox Notes: (Same as: Loven ox) No Longer Active 10/07/2015 [facility] Acetaminophen 1,000 mg, Route: IV, ONCE, Dosing Weight 69.574, kg, Start date: 10/06/15 15:13:00, Stop date: 10/06/15 15:13:00 Inactive 10/06/2015 [facility] Ondansetron Notes: (Same as: Kory davis) MEDICATION WASTE Product Size: 4 mg Product Wasted: ___ mg Inactive 10/06/2015 [facility] Flumazenil Notes: (Same as: Ro mazicon) Inactive 10/06/2015 [facility] Naloxone Notes: Same as Narcan Inactive 10/06/2015 [facility] Hydromorphone 0.5 mg, 0.5 mL, Route: IVP, Drug form: INJ, Q5Min, Dosing Weight 69.574, kg, PRN Pain Score 7-10, Start date: 10/06/15 14:50:00, Duration: 4 doses or times, Stop date: Limited # of times Inactive 10/06/2015 [facility] Morphine Notes: (Same as:MORPh ine Sulfate) Inactive 10/06/2015 [facility] Sodium Chloride 0.154 MEQ/ML Injectable Solution 1,000 mL, Rate: 50 ml/hr, Infuse over: 20 hr, Route: IV, Dosing Weight 69.574 kg, Total Volume: 1,000, Start date: 10/06/15 14:50:00, Duration: 30 day, Stop date: 11/05/15 14:49:00 Inactive 10/06/2015 [facility] Xanax Notes: With food or milk (Same as: Xanax) No Longer Active 10/06/2015 [facility] nutritional supplement Notes: (Same as: Levi Horsham) No Longer Active 10/05/2015 [facility] baclofen Notes: (Same As: Fitz esal) No Longer Active 10/05/2015 [facility] gabapentin 100 MG Oral Capsule Notes: (Same as: Neurontin) No Longer Active 10/03/2015 [facility] Dilaudid Notes: (Same as: Dila udid) No Longer Active 10/03/2015 [facility] Promethazine 6.25 mg, Route: I VPB, ONCE, Dosing Weight 69.574, kg, PRN Nausea & Vomiting, Start date: 10/02/15 10:15:00 Inactive 10/02/2015 [facility] Naloxone Notes: Same as Narcan Inactive 10/02/2015 [facility] Ondansetron Notes: (Same as: Kory davis) MEDICATION WASTE Product Size: 4 mg Product Wasted: ___ mg Inactive 10/02/2015 [facility] Morphine Notes: (Same as:MORPh ine Sulfate) Inactive 10/02/2015 [facility] Atropine Notes: MEDICATION WASTE Product Size: 0.4 mg Product Wasted: ___ mg Inactive 10/02/2015 [facility] Flumazenil Notes: (Same as: Ro mazicon) Inactive 10/02/2015 [facility] Meperidine Notes: (Same As: De merol) Inactive 10/02/2015 [facility] Hydromorphone 0.5 mg, 0.5 mL, Route: IVP, Drug form: INJ, Q5Min, Dosing Weight 69.574, kg, PRN Pain Score 7-10, Start date: 10/02/15 10:15:00, Duration: 4 doses or times, Stop date: Limited # of times Inactive 10/02/2015 [facility] Metoprolol Notes: (Same as: Lo pressor) Push over 2 minutes Inactive 10/02/2015 [facility] Hydralazine Notes: (Same as: A presoline) Push over 5 minutes Inactive 10/02/2015 [facility] Epogen 10,000 unit, Route: SUB -Q, Q-M-W-F, Dosing Weight 69.574, kg, Start date: 10/02/15 9:00:00, Duration: 30 day, Stop date: 10/30/15 9:00:00 No Longer Active 10/02/2015 [facility] 1/2NS + KCL 20mEq/L 1000ml (Premix) 1,000 mL Notes: PREMIX IV - Do Not Alter WASTE: F/P - Sink; E - Municipal Trash Bin No Longer Active 10/02/2015 [facility] Sodium Chloride 0.45% IV 1,000 mL 1,000 mL, Rate: 125 ml/hr, Infuse over: 8 hr, Route: IV, Dosing Weight 69.574 kg, Total Volume: 1,000, Start date: 10/01/15 19:38:00, Duration: 30 day, Stop date: 10/31/15 19:37:00 No Longer Active 10/02/2015 [facility] Saline Flush 0.9% Notes: (Same as: BD Posiflush) No Longer Active 10/01/2015 [facility] Lovenox Notes: (Same as: Loven ox) No Longer Active 10/01/2015 [facility] Kayexalate Notes: (sodium poly styrene sulfonate 15 gm/60 ml SOLITARIO) Shake well before use. (Same as: Kayexalate, SPS) Inactive 10/01/2015 [facility] Kayexalate Notes: (sodium poly styrene sulfonate 15 gm/60 ml SOLITARIO) Shake well before use. (Same as: Kayexalate, SPS) Inactive 09/30/2015 [facility] hydromorphone 1 mg, 1 mL, Rout e: IVP, Drug form: INJ, Q6H, PRN Other -See Comment, Start date: 09/28/15 17:21:00, Duration: 30 day, Stop date: 10/28/15 17:20:00 N o Longer Active 09/28/2015 [facility] acetaminophen-hydrocodone 325 mg-10 mg oral tablet Notes: Do not exceed 4gm/day of acetaminophen. (Same as: [place] 325/10) No Longer Active 09/28/2015 [facility] lidocaine topical Notes: (Same as: Xylocaine Viscous) No Longer Active 09/28/2015 [facility] Levi Nutrition Supplement Juv en Nutrition Supplement, 1 pkg, Drug form: MISC, Route: PO, BID, 09/28/15 11:00:00, Duration: 30 day, Stop date: 10/28/15 9:00:00 No Longer Active 09/28/2015 [facility] acetaminophen-hydrocodone 325 mg-10 mg oral tablet Notes: Do not exceed 4gm/day of acetaminophen. (Same as: [place] 325/10) No Longer Active 09/27/2015 [facility] nutritional supplement Notes: (Same as: Beneprotein) No Longer Active 09/27/2015 [facility] Fluconazole Notes: (Same as: D iflucan) No Longer Active 09/26/2015 [facility] Tylenol Notes: Do not exceed 4 gm/day. (Same as: Tylenol) No Longer Active 09/25/2015 [facility] lactobacillus acidophilus 1 ta b, Route: PO, Drug Form: TAB, Dosing Weight 69.574, kg, Daily, Start date: 09/23/15 9:00:00, Duration: 30 day, Stop date: 10/22/15 9:00:00 No Longer Active 09/23/2015 [facility] lactobacillus rhamnosus GG Not es: Same as Culturelle No Longer Active 09/23/2015 [facility] Dilaudid Notes: (Same as: Dila udid) No Longer Active 09/22/2015 [facility] OxyIR Notes: (Same as: Roxicod one) No Longer Active 09/22/2015 [facility] Xanax Notes: With food or milk (Same as: Xanax) No Longer Active 09/22/2015 [facility] Santyl Notes: (Same As: Santyl) No Longer Active 09/21/2015 [facility] Dilaudid 1 mg, 1 mL, Route: IV , Drug form: INJ, Q3H, Dosing Weight 69.574, kg, PRN Other -See Comment, Start date: 09/18/15 15:44:00, Stop date: 10/18/15 15:43:00 No Longer Active 09/18/2015 [facility] Albuterol 0.83 MG/ML Inhalant Solution Notes: SEE RT DOCUMENTATION (Same as: Proventil) Inactive 09/18/2015 [facility] pantoprazole Notes: Tablet miles uld not be chewed or crushed. (Same as: Protonix) N o Longer Active 09/15/2015 [facility] Lovenox Notes: (Same as: Loven ox) No Longer Active 09/15/2015 [facility] Buspirone Notes: (Same As: BuS par) No Longer Active 09/15/2015 [facility] COLLAGENASE Notes: (Same As: S antyl) No Longer Active 09/15/2015 [facility] multivitamin Notes: (Same as:T nickolas) WASTE: F/P - Black; E - Municipal Trash Bin Take with food. No Longer Active 09/15/2015 [facility] Baclofen Notes: (Same As: Fitz esal) No Longer Active 09/15/2015 [facility] Alprazolam 2 MG Oral Tablet No tru: With food or milk (Same as: Xanax) No Longer Active 09/15/2015 [facility] Mirtazapine Notes: (Same as:Re elier) No Longer Active 09/15/2015 [facility] Amitriptyline Notes: (Same as: Elavil) No Longer Active 09/15/2015 [facility] Fluconazole Notes: (Same as: D iflucan) Inactive 09/15/2015 [facility] Senokot Notes: (Same as: Senok ot) No Longer Active 09/15/2015 [facility] docusate sodium 50 mg oral capsule Notes: (Same as: Colace) (Do Not Crush) No Longer Active 09/15/2015 [facility] Docusate Sodium 50 MG / sennosides, FCI 8.6 MG Oral Tablet 1 tab, Route: PO, Drug Form: TAB, Dosing Weight 69.574, kg, BID, PRN Constipation, Start date: 09/14/15 19:28:00, Duration: 30 day, Stop date: 10/14/15 19:27:00 Inactive 09/15/2015 [facility] Acetaminophen 325 MG / Hydrocodone Micheal trate 5 MG Oral Tablet Notes: (Same as: [place] 325/5) Do not ex ceed 4gm/day of acetaminophen. No Longer Active 09/15/2015 [facility] Xanax Notes: With food or milk (Same as: Xanax) Inactive 09/14/2015 [facility] Zyvox Notes: Protect from ligh t. (Same as: Zyvox) No Longer Active 09/14/2015 [facility] Alprazolam 2 MG Oral Tablet 2 mg = 1 tab, PO, BID, 0 Refill(s) No Longer Active 09/13/2015 [facility] linezolid Notes: (Same as: Zyv ox) Inactive 09/13/2015 [facility] meropenem Notes: Same as Barak jamli MEDICATION WASTE Product Size: 500 mg Product Wasted: ___ mg No Longer Active 09/13/2015 [facility] Saline Flush 0.9% Notes: (Same as: BD Posiflush) No Longer Active 09/13/2015 [facility] Morphine Notes: (Same as:MORPh ine Sulfate) No Longer Active 09/13/2015 [facility] Ondansetron Notes: (Same as: Kory davis) MEDICATION WASTE Product Size: 4 mg Product Wasted: ___ mg No Longer Active 09/13/2015 [facility] Sodium Chloride 0.154 MEQ/ML Injectable Solution 1,000 mL, Rate: 100 ml/hr, Infuse over: 10 hr, Route: IV, Dosing Weight 68.182 kg, Total Volume: 1,000, Start date: 09/13/15 8:36:00, Duration: 30 day, Stop date: 10/13/15 8:35:00 No Longer Active 09/13/2015 [facility] Protonix Notes: Tablet should not be chewed or crushed. (Same as: Protonix) Inactive 09/12/2015 [facility] Diflucan Notes: (Same as: Difl ucan) Inactive 09/12/2015 [facility] Lovenox Notes: (Same as: Loven ox) Inactive 09/12/2015 [facility] Santyl Notes: (Same As: Santyl) Inactive 09/12/2015 [facility] multivitamin Notes: (Same as:Shantell olmos) WASTE: F/P - Black; E - Municipal Trash Bin Take with food. Inactive 09/12/2015 [facility] BuSpar Notes: (Same As: BuSpar) Inactive 09/12/2015 [facility] Docusate Notes: (Same as: Cola ce) (Do Not Crush) Inactive 09/12/2015 [facility] Ondansetron Notes: (Same as: Kory davis) MEDICATION WASTE Product Size: 4 mg Product Wasted: ___ mg Inactive 09/12/2015 [facility] baclofen Notes: (Same As: Fitz esal) Inactive 09/12/2015 [facility] meropenem + Sodium Chloride 0.9% IV 100 mL Notes: Same as Merrem MEDICATION WASTE Product Size: 500 mg Product Wasted: ___ mg No Longer Active 09/12/2015 [facility] amitriptyline Notes: (Same as: Elavil) No Longer Active 09/12/2015 [facility] Remeron Notes: (Same as:Remero n) No Longer Active 09/12/2015 [facility] Zyvox Notes: Protect from ligh t. (Same as: Zyvox) No Longer Active 09/12/2015 [facility] Amitriptyline Notes: (Same as: Elavil) Inactive 09/12/2015 [facility] Senokot Notes: (Same as: Senok ot) No Longer Active 09/12/2015 [facility] docusate sodium 50 mg oral capsule Notes: (Same as: Colace) (Do Not Crush) No Longer Active 09/12/2015 [facility] acetaminophen-hydrocodone 325 mg-5 mg oral tablet Notes: (Same as: [place] 325/5) Do not exceed 4gm/day of acetaminophen. No Longer Active 09/12/2015 [facility] Xanax Notes: With food or milk (Same as: Xanax) No Longer Active 09/12/2015 [facility] Baclofen Notes: (Same As: Fitz esal) Inactive 09/12/2015 [facility] Buspirone Notes: (Same As: BuS par) Inactive 09/11/2015 [facility] meropenem 500 mg intravenous injection 500 mg, IV, Q6H, X 10 day, # 28 bag, 0 Refill(s) No Longer Active 09/11/2015 [facility] pantoprazole Notes: Tablet miles uld not be chewed or crushed. (Same as: Protonix) Inactive 09/11/2015 [facility] Fluconazole Notes: (Same as: D iflucan) Inactive 09/11/2015 [facility] Senokot Notes: (Same as: Senok ot) Inactive 09/11/2015 [facility] docusate sodium 50 mg oral capsule Notes: (Same as: Colace) (Do Not Crush) Inactiv e 09/11/2015 [facility] Acetaminophen 325 MG / Hydrocodone Micheal trate 5 MG Oral Tablet 2 tab, PO, Q4H, PRN Pain Score 7-10, 0 Refill(s) Active 09/11/2015 [facility] linezolid 600 mg oral tablet 6 00 mg = 1 tab, PO, [id number], 0 Refill(s) Active 09/11/2015 [facility] Alprazolam 0.5 MG Oral Tablet 0.5 mg = 1 tab, PO, Q12H, PRN Anxiety, 0 Refill(s) No Longer Active 09/11/2015 [facility] mirtazapine 30 mg oral tablet 30 mg = 1 tab, PO, Bedtime, 0 Refill(s) Active 09/11/2015 [facility] Docusate Sodium 50 MG / sennosides, FCI 8.6 MG Oral Tablet 1 tab, Route: PO, Drug Form: TAB, Dosing Weight 65.909, kg, BID, PRN Constipation, Start date: 09/11/15 15:53:00, Duration: 30 day, Stop date: 10/11/15 15:52:00 Inactive 09/11/2015 [facility] Nicorette 4 mg gum Nicorette 4 mg gum, 4 mg, Drug form: MISC, Route: CHEW, BID, 09/11/15 3:00:00, Duration: 30 day, Stop date: 10/10/15 17:00:00 Inactive 09/11/2015 [facility] Zyvox Notes: Protect from ligh t. (Same as: Zyvox) No Longer Active 09/11/2015 [facility] Nicorette Notes: Non-Formulary Drug WASTE: F/P - P Waste Black; E - P Waste Black (Same as: Nicorette) No Longer Active 09/10/2015 [facility] Nicotine Notes: (Same as: Roney montague) "Remove old patch before application of new patch" WASTE: F/P - P Waste Black; E - P Waste Black Inactive 09/10/2015 [facility] Remeron Notes: (Same as:Remero n) No Longer Active 09/10/2015 [facility] Enoxaparin Notes: (Same as: Lo venox) No Longer Active 09/08/2015 [facility] Morphine Notes: (Same as:MORPh ine Sulfate) No Longer Active 09/08/2015 [facility] Flagyl Notes: (Same as: Flagyl ) Take with food/ avoid alcohol No Longer Active 09/08/2015 [facility] meropenem Notes: Same as Barak m MEDICATION WASTE Product Size: 500 mg Product Wasted: ___ mg No Longer Active 09/08/2015 [facility] Xanax Notes: With food or milk (Same as: Xanax) No Longer Active 09/07/2015 [facility] linezolid Notes: (Same as: Zyv ox) No Longer Active 09/07/2015 [facility] meropenem Notes: Same as Barak m MEDICATION WASTE Product Size: 500 mg Product Wasted: ___ mg Inactive 09/07/2015 [facility] Ondansetron Notes: (Same as: Z luisran) MEDICATION WASTE Product Size: 4 mg Product Wasted: ___ mg No Longer Active 09/07/2015 [facility] Docusate Notes: (Same as: Cola ce) (Do Not Crush) No Longer Active 09/07/2015 [facility] Morphine Notes: (Same as:MORPh ine Sulfate) No Longer Active 09/07/2015 [facility] Acetaminophen 325 MG / Hydrocodone Micheal trate 5 MG Oral Tablet Notes: (Same as: [place] 325/5) Do not ex ceed 4gm/day of acetaminophen. No Longer Active 09/07/2015 [facility] Acetaminophen Notes: Do not ex ceed 4 gm/day. (Same as: Tylenol) No Longer Active 09/07/2015 [facility] Acetaminophen 325 MG / Hydrocodone Micheal trate 10 MG Oral Tablet [[place] 10/325] 1 tab, Route: PO, Drug Form: TAB, Dosing Weight 65.909, kg, ONCE, PRN Pain Score 1-3, Start date: 09/07/15 3:44:00, Stop date: 10/07/15 3:43:00 Inactive 09/07/2015 [facility] normal saline 0.9% IV 2,000 mL 2,000 mL, Rate: 2,000 ml/hr, Infuse over: 1 hr, Route: IV, Dosing Weight 65.909 kg, Total Volume: 2,000, Priority: STAT, Start date: 09/07/15 0:08:00, Duration: 1 doses or times, Stop date: 09/07/15 1:07:00 Inactive 09/07/2015 [facility] Saline Flush 0.9% Notes: (Same as: BD Posiflush) No Longer Active 09/07/2015 [facility] oxyCONTIN Notes: Do not crush or chew. (Same as: OxyContin) Inactive 09/06/2015 [facility] Oxycontin Notes: Do not crush or chew. (Same as: OxyContin) Inactive 09/06/2015 [facility] Methadone Notes: (Same as: Dol ophine) Inactive 09/06/2015 [facility] meropenem + Sodium Chloride 0.9% IV 100 mL Notes: Same as Merrem MEDICATION WASTE Product Size: 500 mg Product Wasted: ___ mg Inactive 09/06/2015 [facility] tramadol 50 mg oral tablet Not es: Not to exceed 400mg/day. (Same As: Ultram) Inactive 09/04/2015 [facility] Nicorette Nicorette, Nicorette 4mg gum, Drug form: MISC, Route: PO, Q12H, PRN Other -See Comment, 09/03/15 15:12:00, Duration: 30 day, Stop date: 10/03/15 15:11:00 N o Longer Active 09/03/2015 [facility] Oxycontin Notes: Do not crush or chew. (Same as: OxyContin) No Longer Active 09/03/2015 [facility] Methadone Notes: (Same as: Dol ophine) No Longer Active 09/03/2015 [facility] Oxycontin Notes: Do not crush or chew. (Same as: OxyContin) No Longer Active 08/31/2015 [facility] Habitrol Notes: (Same as: Roney montague) "Remove old patch before application of new patch" WASTE: F/P - P Waste Black; E - P Waste Black No Longer Active 08/29/2015 [facility] remove patch Notes: Remove old patch before application of new patch. No Longer Active 08/28/2015 [facility] Dextrose 50% in Water IV 50 mL , Route: IVP, Start date: 08/26/15 19:35:00, Duration: 30 day, Stop date: 09/25/15 19:34:00, PRN Blood Glucose Results No Longer Active 08/27/2015 [facility] meropenem Notes: Same as Barak jamil MEDICATION WASTE Product Size: 500 mg Product Wasted: ___ mg No Longer Active 08/26/2015 [facility] Haldol Notes: (Same as: Haldol) No Longer Active 08/26/2015 [facility] Zyvox Notes: Protect from ligh t. (Same as: Zyvox) No Longer Active 08/26/2015 [facility] Protonix Notes: Tablet should not be chewed or crushed. (Same as: Protonix) No Longer Active 08/25/2015 [facility] Diflucan Notes: (Same as: Difl ucan) No Longer Active 08/25/2015 [facility] Duragesic-25 Notes: (Same as: Duragesic) Check for product integrity. Apply to intact skin "Remove old patch before application of new patch" No Longer Active 08/25/2015 [facility] Lovenox Notes: (Same as: Loven ox) No Longer Active 08/25/2015 [facility] Xanax Notes: With food or milk (Same as: Xanax) No Longer Active 08/25/2015 [facility] sodium hypochlorite topical 0.25% solution Notes: Note: half-strength = 0.25% sodium hypochlorite. No Longer Active 08/25/2015 [facility] multivitamin Notes: (Same as:Shantell olmos) WASTE: F/P - Black; E - Municipal Trash Bin Take with food. No Longer Active 08/25/2015 [facility] lactobacillus rhamnosus GG Not es: Same as Culturelle No Longer Active 08/25/2015 [facility] Santyl Notes: (Same As: Santyl) No Longer Active 08/25/2015 [facility] Dolophine Notes: (Same as: Dol ophine) No Longer Active 08/25/2015 [facility] meropenem + Sodium Chloride 0.9% IV 100 mL Notes: Same as Merrem MEDICATION WASTE Product Size: 500 mg Product Wasted: ___ mg Inactive 08/25/2015 [facility] Senokot Notes: (Same as: Senok ot) No Longer Active 08/25/2015 [facility] docusate sodium 50 mg oral capsule Notes: (Same as: Colace) (Do Not Crush) No Longer Active 08/25/2015 [facility] Zyvox Notes: Protect from ligh t. (Same as: Zyvox) Inactive 08/25/2015 [facility] Duragesic-25 Notes: (Same as: Duragesic) Check for product integrity. Apply to intact skin "Remove old patch before application of new patch" Inactive 08/25/2015 [facility] baclofen Notes: (Same As: Fitz esal) No Longer Active 08/25/2015 [facility] Nicorette Notes: Non-Formulary Drug WASTE: F/P - P Waste Black; E - P Waste Black (Same as: Nicorette) No Longer Active 08/25/2015 [facility] Ambien Notes: (Same As: Ambien) No Longer Active 08/25/2015 [facility] naloxone Notes: Same as Narcan No Longer Active 08/25/2015 [facility] BuSpar Notes: (Same As: BuSpar) No Longer Active 08/25/2015 [facility] amitriptyline Notes: (Same as: Elavil) No Longer Active 08/25/2015 [facility] meropenem 50 MG/ML Injectable Solution [Merrem] 500 mg, IV, Q8H, X 14 day, # 42 bag, 0 Refill(s) Active 08/24/2015 [facility] nicotine 2 mg oral transmucosal gum 2 mg = 1 ea, CHEW, Q2H, PRN for smoking cessation, X 2 week, # 168 ea, 0 Refill(s) Active 08/24/2015 [facility] zolpidem 5 mg = 1 tab, PO, Bed time, PRN Insomnia, 0 Refill(s) Active 08/24/2015 [facility] naloxone 0.4 mg/mL injectable solution 0.2 mg = 0.5 mL, IVP, Q5Min, PRN Narcotic Reversal, 0 Refill(s) Active 08/24/2015 [facility] pantoprazole 40 mg oral enteric coated tablet 40 mg = 1 tab, PO, Before Dinner, 0 Refill(s) Inactive 08/24/2015 [facility] multivitamin 1 tab, PO, Daily, 0 Refill(s) Inactive 08/24/2015 [facility] linezolid 600 mg oral tablet 6 00 mg = 1 tab, PO, [id number], 0 Refill(s) Inactive 08/24/2015 [facility] fluconazole 100 mg oral tablet 200 mg = 2 tab, PO, [id number], 0 Refill(s) Inactive 08/24/2015 [facility] lactobacillus acidophilus and bulgaricus CHEW, QID, 0 Refill(s) Inactive 08/24/2015 [facility] fentaNYL 75 mcg/hr transdermal film, extended release 1 patch, TOP, Q72H, 0 Refill(s) Inactive 08/24/2015 [facility] enoxaparin 40 mg/0.4 mL subcutaneous solution 40 mg = 0.4 mL, SUB-Q, [id number], 0 Refill(s) Inactive 08/24/2015 [facility] Docusate Sodium 50 MG / sennosides, FCI 8.6 MG Oral Tablet 1 tab, PO, BID, PRN Constipation, 0 Refill(s) Active 08/24/2015 [facility] baclofen 10 mg oral tablet 10 mg = 1 tab, PO, Q6H, 0 Refill(s) Inactive 08/24/2015 [facility] methadone 5 mg oral tablet 5 m g = 1 tab, PO, Q8H, 0 Refill(s) Inactive 08/24/2015 [facility] Cilastatin 5 MG/ML / Imipenem 5 MG/ML In jectable Solution = 1 ea, IV, Q6H, X 14 day, # 56 ea, 0 Refill(s) Inactive 08/24/2015 [facility] Dakins Half Strength Solution 0.25% topical 1 appl, TOP, Daily, 0 Refill(s) Active 08/24/2015 [facility] pantoprazole 40 mg oral enteric coated tablet 40 mg = 1 tab, PO, Before Dinner, 0 Refill(s) Active 08/24/2015 [facility] multivitamin 1 tab, PO, Daily, 0 Refill(s) Active 08/24/2015 [facility] linezolid 600 mg oral tablet 6 00 mg = 1 tab, PO, [id number], 0 Refill(s) Active 08/24/2015 [facility] lactobacillus acidophilus and bulgaricus CHEW, QID, 0 Refill(s) Active 08/24/2015 [facility] fluconazole 100 mg oral tablet 200 mg = 2 tab, PO, [id number], 0 Refill(s) Active 08/24/2015 [facility] fentaNYL 75 mcg/hr transdermal film, extended release 1 patch, TOP, Q72H, 0 Refill(s) Active 08/24/2015 [facility] enoxaparin 40 mg/0.4 mL subcutaneous solution 40 mg = 0.4 mL, SUB-Q, [id number], 0 Refill(s) Active 08/24/2015 [facility] collagenase topical 250 units/g ointment 1 appl, TOP, Daily, 0 Refill(s) Active 08/24/2015 [facility] busPIRone 5 mg oral tablet 5 m g = 1 tab, PO, TID, 0 Refill(s) Active 08/24/2015 [facility] baclofen 10 mg oral tablet 10 mg = 1 tab, PO, Q6H, 0 Refill(s) Active 08/24/2015 [facility] methadone 5 mg oral tablet 5 m g = 1 tab, PO, Q8H, 0 Refill(s) Active 08/24/2015 [facility] Buspar Notes: (Same As: BuSpar) No Longer Active 08/23/2015 [facility] Ketorolac 4 days MEDICA TION WASTE Product Size: 30 mg Product Wasted: ___ mg No Longer Active 08/23/2015 [facility] Baclofen Notes: (Same As: Fitz esal) No Longer Active 08/23/2015 [facility] Zyvox Notes: Protect from ligh t. (Same as: Zyvox) No Longer Active 08/23/2015 [facility] Kareen-Colace Reformulated Sep 2007 Notes: (Same as Se-S) Equiv. to Kareen-Colace. No Longer Active 08/23/2015 [facility] Fluconazole Notes: (Same as: D iflucan) No Longer Active 08/22/2015 [facility] Nicorette 4 mg Nicorette 4 mg, 1 gum, Drug form: MISC, Route: CHEW, Q1H, PRN Other -See Comment, 08/21/15 23:48:00, Duration: 30 day, Stop date: 09/20/15 23:47:00 N o Longer Active 08/22/2015 [facility] Nicorette 4 mg, Route: CHEW, Q 1H, Dosing Weight 69.8, kg, PRN Other -See Comment, Start date: 08/21/15 23:31:00, Duration: 30 day, Stop date: 09/20/15 23:30:00 Inactive 08/22/2015 [facility] Buspar Notes: (Same As: BuSpar) No Longer Active 08/21/2015 [facility] Alprazolam 2 MG Oral Tablet [Xanax] Notes: With food or milk (Same as: Xanax) No Longe r Active 08/21/2015 [facility] 72 HR Fentanyl 0.075 MG/HR Transdermal Patch Notes: (Same as: Duragesic) Check for product integrity. Apply to intact skin "Remove old patch before application of new patch" No Longer Active 08/21/2015 [facility] naloxone Notes: (Same as: Narc an) No Longer Active 08/21/2015 [facility] Sodium Chloride 0.9% (titrate) 250 mL 250 mL, Rate: status controller for use with blood product administration, Dosing Weight 69.8, kg, Route: IV, Total Volume: 250, Start Date: 08/21/15 10:12:00, Duration: 30 day, Stop date: 09/20/15 10:11:00, Replace Every: 24 hr No Longer Active 08/21/2015 [facility] Methadone Notes: (Same as: Dol ophine) No Longer Active 08/21/2015 [facility] Methadone 5 mg, Route: PO, [place] g form: TAB, Q12H, Dosing Weight 69.8, kg, Start date: 08/19/15 21:00:00, Duration: 5 day, Stop date: 08/24/15 9:00:00 Inactive 08/20/2015 [facility] meropenem + Sodium Chloride 0.9% IV 100 mL Notes: Same as Merrem MEDICATION WASTE Product Size: 500 mg Product Wasted: ___ mg Inactive 08/20/2015 [facility] Methadone Notes: (Same as: Dol ophine) No Longer Active 08/19/2015 [facility] remove patch 1 patch, Route: T OP, Drug form: ERFILM, Q72H, Start date: 08/19/15 17:00:00, Duration: 30 day, Stop date: 09/15/15 17:00:00 No Longer Active 08/19/2015 [facility] Ondansetron Notes: (Same as: Kory davis) MEDICATION WASTE Product Size: 4 mg Product Wasted: ___ mg Inactive 08/18/2015 [facility] Naloxone Notes: Same as Narcan Inactive 08/18/2015 [facility] Morphine Notes: (Same as:MORPh ine Sulfate) Inactive 08/18/2015 [facility] Flumazenil Notes: (Same as: Ro mazicon) Inactive 08/18/2015 [facility] zolpidem Notes: (Same As: Ambi en) No Longer Active 08/18/2015 [facility] Ondansetron Notes: (Same as: Kory davis) MEDICATION WASTE Product Size: 4 mg Product Wasted: ___ mg No Longer Active 08/18/2015 [facility] Methadone Notes: (Same as: Dol ophine) No Longer Active 08/18/2015 [facility] Lovenox Notes: (Same as: Loven ox) No Longer Active 08/17/2015 [facility] Methadone Notes: (Same as: Dol ophine) No Longer Active 08/17/2015 [facility] Floranex Notes: (Same as Joanie nex) Do NOT refrigerate No Longer Active 08/17/2015 [facility] Amikacin Notes: TIME CRITICAL MEDICATION (Same as: Amikin) MEDICATION WASTE Product Size: 500 mg Product Wasted: ___ mg Inactive 08/17/2015 [facility] 72 HR Fentanyl 0.05 MG/HR Transdermal Patch 1 patch, Route: TOP, Drug Form: ERFILM, Dosing Weight 69.8, kg, Q72H, Start date: 08/16/15 17:00:00, Duration: 30 day, Stop date: 09/12/15 17:00:00 No Longer Active 08/16/2015 [facility] Ondansetron Notes: (Same as: Kory davis) MEDICATION WASTE Product Size: 4 mg Product Wasted: ___ mg No Longer Active 08/16/2015 [facility] Alprazolam 1 MG Oral Tablet [Xanax] Notes: With food or milk (Same as: Xanax) No Longe r Active 08/16/2015 [facility] Methadone Notes: (Same as: Dol ophine) No Longer Active 08/15/2015 [facility] Santyl Notes: (Same As: Santyl) No Longer Active 08/15/2015 [facility] Dakins Half Strength Solution 0.25% topical Notes: Note: half-strength = 0.25% sodium hypochlorite. No Longer Active 08/14/2015 [facility] Amikacin Notes: TIME CRITICAL MEDICATION (Same as: Amikin) MEDICATION WASTE Product Size: 500 mg Product Wasted: ___ mg Inactive 08/14/2015 [facility] Kareen-Colace Reformulated Sep 2007 Notes: (Same as Senokot-S) Equiv. to Kareen-Colace. No Longer Active 08/13/2015 [facility] D5W 1/2NS 1,000 mL 1,000 mL, R ate: 150 ml/hr, Infuse over: 6.7 hr, Route: IV, Dosing Weight 69.8 kg, Total Volume: 1,000, Start date: 08/13/15 11:05:00, Duration: 30 day, Stop date: 09/12/15 11:04:00 No Longer Active 08/13/2015 [facility] Sodium Chloride 0.154 MEQ/ML Injectable Solution 500 mL, 500 ml/hr, Infuse Over: 1 hr, Route: IV, 500, Drug form: INJ, ONCE, Priority: STAT, Dosing Weight 69.8 kg, Start date: 08/13/15 11:03:00, Duration: 1 doses or times, Stop date: 08/13/15 11:03:00 Inactive 08/13/2015 [facility] Albumin Human, FCI 250 MG/ML Injectable Solution Notes: LOT#: Mfg: (Same as: Albuminar) "blood product derivative" Inactive 08/13/2015 [facility] Sodium Chloride 0.154 MEQ/ML Injectable Solution 500 mL, 500 ml/hr, Route: IV, ONCE, Priority: STAT, Dosing Weight 69.8 kg, Start date: 08/13/15 8:43:00, Duration: 1 doses or times, Stop date: 08/13/15 8:43:00 Inactive 08/13/2015 [facility] linezolid Notes: (Same as: Zyv ox) No Longer Active 08/13/2015 [facility] Lactulose Notes: (Same as:Coal Washer Tender nulac) No Longer Active 08/12/2015 [facility] Fluconazole Notes: (Same as: D iflucan) Do not refrigerate No Longer Active 08/11/2015 [facility] Amikacin Notes: TIME CRITICAL MEDICATION (Same as: Amikin) MEDICATION WASTE Product Size: 500 mg Product Wasted: ___ mg Inactive 08/11/2015 [facility] Vancomycin 2001 mg: infuse ov er 2.5 hours MEDICATION WASTE Product Size: 1000 mg Product Wasted: ___ mg Inactive 08/11/2015 [facility] Albumin Human, FCI 50 MG/ML Injectable Solution Notes: LOT#: Mfg: (Same as: Albuminar) "blood product derivative" Inactive 08/11/2015 [facility] Sodium Chloride 0.154 MEQ/ML Injectable Solution 1,000 mL, Rate: 75 ml/hr, Infuse over: 13.3 hr, Route: IV, Dosing Weight 69.8 kg, Total Volume: 1,000, Start date: 08/11/15 9:15:00, Duration: 30 day, Stop date: 09/10/15 9:14:00 No Longer Active 08/11/2015 [facility] remove patch 1 patch, Route: T OP, Drug form: ERFILM, Daily, Start date: 08/11/15 9:00:00, Duration: 30 day, Stop date: 09/09/15 9:00:00 No Longer Active 08/11/2015 [facility] multivitamin Notes: (Same as: Nephro-Mima Rx and Diatx) Give with food. No Longer Active 08/11/2015 [facility] Mupirocin 0.02 MG/MG Nasal Ointment [Bactroban] 1 appl, Route: NASAL, Q12H, Drug form: OINT, Start date: 08/11/15 9:00:00, Duration: 5 day, Stop date: 08/15/15 21:00:00, MRSA decolonization No Longer Active 08/11/2015 [facility] pantoprazole Notes: Tablet miles uld not be chewed or crushed. (Same as: Protonix) N o Longer Active 08/10/2015 [facility] Amikacin Notes: TIME CRITICAL MEDICATION (Same as: Amikin) MEDICATION WASTE Product Size: 500 mg Product Wasted: ___ mg Inactive 08/10/2015 [facility] Sodium Chloride 0.154 MEQ/ML Injectable Solution 1,000 mL, Rate: 150 ml/hr, Infuse over: 6.7 hr, Route: IV, Dosing Weight 69.8 kg, Total Volume: 1,000, Start date: 08/10/15 9:09:00, Duration: 30 day, Stop date: 09/09/15 9:08:00 No Longer Active 08/10/2015 [facility] Habitrol 21 mg, 1 patch, Route : TOP, Drug form: ERFILM, Daily, Start date: 08/10/15 9:00:00, Duration: 30 day, Stop date: 09/08/15 9:00:00 No Longer Active 08/10/2015 [facility] Zinc Sulfate Notes: (Zinc sulf ate capsule) - 220 mg Zinc sulfate = 50 mg elemental zinc Same as Zinc Sulfate No Longer Active 08/10/2015 [facility] Amitriptyline Notes: (Same as: Elavil) No Longer Active 08/10/2015 [facility] Methadone Notes: (Same as: Dol ophine) No Longer Active 08/10/2015 [facility] Alprazolam 1 MG Oral Tablet [Xanax] Notes: With food or milk (Same as: Xanax) No Longe r Active 08/09/2015 [facility] meropenem Notes: Same as Barak jamil MEDICATION WASTE Product Size: 500 mg Product Wasted: ___ mg No Longer Active 08/09/2015 [facility] gabapentin 300 MG Oral Capsule Notes: (Same as: Neurontin) No Longer Active 08/09/2015 [facility] ascorbic acid Notes: (Same as: Vitamin C) No Longer Active 08/09/2015 [facility] Protonix + sodium chloride 10 mL Notes: For IV push reconstitute with 10 ml 0.9% sodium chloride and push over 2 minutes. (Same as: Protonix) No Longer Active 08/09/2015 [facility] Nicotine 2 mg, Route: Dr francis BRYANT form: GUM, Q2H, Dosing Weight 69.8, kg, PRN as needed for smoking cessation, Start date: 08/09/15 15:08:00, Duration: 30 day, Stop date: 09/08/15 15:07:00 Inactive 08/09/2015 [facility] Acetaminophen 325 MG / Hydrocodone Micheal trate 10 MG Oral Tablet Notes: Do not exceed 4gm/day of acetamin ophen. (Same as: [place] 325/10) No Longer Active 08/09/2015 [facility] 1/ NS 1,000 mL 1,000 mL, Rate : 100 ml/hr, Infuse over: 10 hr, Route: IV, Dosing Weight 69.8 kg, Total Volume: 1,000, Start date: 08/09/15 15:05:00, Duration: 30 day, Stop date: 09/08/15 15:04:00 No Longer Active 08/09/2015 [facility] cefepime Notes: (Same As: Franco guaman) MEDICATION WASTE Product Size: 1000 mg Product Wasted: ___ mg Inactive 08/09/2015 [facility] Albumin Human, FCI 50 MG/ML Injectable Solution Notes: LOT#: Mfg: (Same as: Albuminar) "blood product derivative" Inactive 08/09/2015 [facility] heparin sodium, porcine 2500 UNT/ML Injectable Solutio n Notes: porcine heparin No Longer Active 08/09/2015 [facility] Protonix 40 mg, Route: IVP, Kei greeny, Dosing Weight 86.364, kg, Start date: 08/09/15 9:00:00, Duration: 30 day, Stop date: 09/07/15 9:00:00 Inactive 08/09/2015 [facility] sodium phosphate + Sodium Chloride 0.9% IV 250 mL 30 mmol, 10 mL, Route: IVPB, PRN, Dosing Weight 69.8, kg, PRN Abnormal Lab Result, Start date: 08/09/15 8:48:00, Duration: 30 day, Stop date: 09/08/15 8:47:00, FOR ICU USE ONLY No Longer Active 08/09/2015 [facility] potassium phosphate + Sodium Chloride 0.9% IV 250 mL Notes: (Same as: K Phosphate.) 1 mMol phoshate has 1.47 mEq potassium Infuse over 4 hours No Longer Active 08/09/2015 [facility] Magnesium Oxide Notes: (Same a s: Mag-Ox 400) Magnesium oxide [id number] elemental magnesium Dose=____mg magnesium oxide (___mg elemental magnesium) No Longer Active 08/09/2015 [facility] Magnesium Sulfate 2 gm, 50 mL, Route: IVPB, Drug form: INJ, PRN, Dosing Weight 69.8, kg, PRN Abnormal Lab Result, Start date: 08/09/15 8:48:00, Duration: 30 day, Stop date: 09/08/15 8:47:00, FOR ICU USE ONLY No Longer Active 08/09/2015 [facility] Neutra-Phos Notes: (Same as: N eutra-Phos) Each 1.25 gm pkt has 250mg phosphorous. Mix w/2.5oz water and stir. No Longer Active 08/09/2015 [facility] Calcium Carbonate 500 MG Chewable Tablet Notes: (Same As: Tums) Calcium Carbonate 500 mg = 200 mg elemental calcium Dose = mg calcium carbonate ( mg elemental calcium) No Longer Active 08/09/2015 [facility] Calcium Gluconate 1 gm, 10 mL, Route: IVPB, PRN, Dosing Weight 69.8, kg, PRN Abnormal Lab Result, Start date: 08/09/15 8:48:00, Duration: 30 day, Stop date: 09/08/15 8:47:00, FOR ICU USE ONLY No Longer Active 08/09/2015 [facility] potassium chloride Notes: Infu se at a rate of 10 mEq/hr. (Same as: KCL) No Longer Active 08/09/2015 [facility] gabapentin 300 MG Oral Capsule 300 mg = 1 cap, PO, TID, # 90 cap, 0 Refill(s) No Longe r Active 08/09/2015 [facility] gabapentin PO, 0 Refill(s) Inactive 08/09/2015 [facility] Xanax 1 mg, PO, BID, 0 Refill( s) Active 08/09/2015 [facility] hydrocortisone 100 mg injection Notes: (Same as: Solu- CORTEF) No Longer Active 08/09/2015 [facility] Tylenol Notes: Infuse over 15 minutes Do not exceed 4gm/day of acetaminophen MEDICATION WASTE Product Size: 1000 mg Product Wasted: ___ mg No Longer Active 08/09/2015 [facility] D5NS 1,000 mL 1,000 mL, Rate: 75 ml/hr, Infuse over: 13.3 hr, Route: IV, Dosing Weight 86.364 kg, Total Volume: 1,000, Start date: 08/09/15 1:20:00, Duration: 30 day, Stop date: 09/08/15 1:19:00 No Longer Active 08/09/2015 [facility] potassium chloride Notes: (Corey e as: Potassium Chloride) Inactive 08/09/2015 [facility] Calcium Gluconate 2 gm, 20 mL, Route: IVPB, PRN, Dosing Weight 86.364, kg, PRN Abnormal Lab Result, For NON-ICU Patients Only., Start date: 08/09/15 1:18:00, Duration: 30 day, Stop date: 09/08/15 1:17:00 Inactive 08/09/2015 [facility] potassium phosphate + Sodium Chloride 0.9% IV 250 mL Notes: (Same as: K Phosphate.) 1 mMol phoshate has 1.47 mEq potassium Infuse over 4 hours Inactive 08/09/2015 [facility] potassium phosphate-sodium phosphate 250 mg-278 mg-164 mg oral powder Notes: (Same as: Neutra-Phos) Each 1.25 gm pkt has 250mg phosphorous. Mix w/2.5oz water and stir. Inactive 08/09/2015 [facility] Magnesium Sulfate 2 gm, 50 mL, Route: IVPB, Drug form: INJ, PRN, Dosing Weight 86.364, kg, PRN Abnormal Lab Result, For NON-ICU Patients Only., Start date: 08/09/15 1:18:00, Duration: 30 day, Stop date: 09/08/15 1:17:00 Inactive 08/09/2015 [facility] Magnesium Oxide Notes: (Same a s: Mag-Ox 400) Magnesium oxide [id number] elemental magnesium Dose=____mg magnesium oxide (___mg elemental magnesium) Inactive 08/09/2015 [facility] sodium phosphate + Sodium Chloride 0.9% IV 250 mL 30 mmol, 10 mL, Route: IVPB, PRN, Dosing Weight 86.364, kg, PRN Abnormal Lab Result, For NON-ICU Patients Only., Start date: 08/09/15 1:18:00, Duration: 30 day, Stop date: 09/08/15 1:17:00 Inactive 08/09/2015 [facility] Sodium Chloride 0.9% IV 25 mL, Route: IV, Start date: 08/09/15 0:51:00, Duration: 30 day, Stop date: 09/08/15 0:50:00, PRN Line Flush No Longer Active 08/09/2015 [facility] BD Normal Saline Flush Notes: (Same as: BD Posiflush) No Longer Active 08/09/2015 [facility] Vancomycin 2001 mg: infuse ov er 2.5 hours Inactive 08/09/2015 [facility] Norepinephrine Notes: Not for direct administration - DILUTE. Protect from light. (Same as:Levophed). Administer by either central venous catheter or peripherally-inserted central catheter (PICC) line. No Longer Active 08/09/2015 [facility] Dextrose 50% in Water IV 50 mL , Route: IVP, Start date: 08/08/15 19:11:00, Stop date: 08/08/15 19:11:00 Inactive 08/09/2015 [facility] Dextrose 50% in Water IV 50 mL , Route: IVP, Start date: 08/08/15 19:10:00, Stop date: 08/08/15 19:10:00 Inactive 08/09/2015 [facility] Dextrose 50 gm, Route: IV, ONC E, Dosing Weight 86.364, kg, Start date: 08/08/15 19:06:00, Stop date: 08/08/15 19:06:00 Inactive 08/09/2015 [facility] Dextrose 100 gm, Route: IV, ON CE, Dosing Weight 86.364, kg, Start date: 08/08/15 19:05:00, Stop date: 08/08/15 19:05:00 Inactive 08/09/2015 [facility] Tylenol Notes: Do not exceed 4 gm/day. (Same as: Tylenol) No Longer Active 08/09/2015 [facility] Phenylephrine Notes: (Same as: Kilo-Synephrine) Inactive 08/09/2015 [facility] Sodium Chloride 0.154 MEQ/ML Injectable Solution 1,000 mL, 1,000 ml/hr, Infuse Over: 1 hr, Route: IV, 1,000, Drug form: INJ, ONCE, Priority: STAT, Dosing Weight 86.364 kg, Start date: 08/08/15 17:08:00, Duration: 1 doses or times, Stop date: 08/08/15 17:08:00 Inactive 08/08/2015 [facility] Amikacin Notes: TIME CRITICAL MEDICATION (Same as: Amikin) MEDICATION WASTE Product Size: 1000 mg Product Wasted: 350 mg Inactive 08/08/2015 [facility] Ativan 2 mg, Route: IVP, Drug form: INJ, ONCE, Dosing Weight 86.364, kg, Priority: STAT, Start date: 08/08/15 15:46:00, Stop date: 08/08/15 15:46:00 Inactive 08/08/2015 [facility] Dextrose 50% Syringe 12.5 gm, 25 mL, Route: IVP, Drug Form: INJ, Dosing Weight 86.364, kg, ONCE, STAT, Start date: 08/08/15 15:40:00, Stop date: 08/08/15 15:40:00 Inactive 08/08/2015 [facility] Ativan Notes: (Same as: Ativan) Inactive 08/08/2015 [facility] Haldol Notes: (Same as: Haldol) Inactive 08/08/2015 [facility] Sodium Chloride 0.154 MEQ/ML Injectable Solution 1,000 mL, 1,000 ml/hr, Infuse Over: 1 hr, Route: IV, 1,000, Drug form: INJ, ONCE, Priority: STAT, Dosing Weight 86.364 kg, Start date: 08/08/15 14:30:00, Duration: 1 doses or times, Stop date: 08/08/15 14:30:00 Inactive 08/08/2015 [facility] Flagyl Notes: (Same as: Flagyl ) Avoid alcohol. No Longer Active 08/08/2015 [facility] cefepime Notes: (Same As: Franco guaman) MEDICATION WASTE Product Size: 1000 mg Product Wasted: ___ mg Inactive 08/08/2015 [facility] Vancomycin 2001 mg: infuse ov er 2.5 hours Inactive 08/08/2015 [facility] Sodium Chloride 0.154 MEQ/ML Injectable Solution 1,000 mL, 1,000 ml/hr, Infuse Over: 1 hr, Route: IV, 1,000, Drug form: INJ, ONCE, Priority: STAT, Dosing Weight 86.364 kg, Start date: 08/08/15 14:10:00, Duration: 1 doses or times, Stop date: 08/08/15 14:10:00 Inactive 08/08/2015 [facility] Saline Flush 0.9% Notes: (Same as: BD Posiflush) No Longer Active 08/08/2015 [facility] linezolid 600 MG Oral Tablet [Zyvox] 600 mg = 1 tab, PO, Q12H, X 10 day, # 20 tab, 0 Refill(s) Active 06/21/2015 [facility] Nitrofurantoin 100 MG Oral Capsule [Macrobid] 100 mg = 1 cap, PO, Daily, X 30 day, # 30 cap, 0 Refill(s) Inactive 06/21/2015 [facility] Macrodantin Notes: Not Recomme nded for patients with CrCl< 50 ml/min With food (Same as:Macrodantin) Inactive 06/21/2015 [facility] Macrobid 100 mg, Route: PO, Dr ug form: CAP, Daily, Dosing Weight 69.8, kg, Start date: 06/21/15 9:00:00, Duration: 30 day, Stop date: 07/20/15 9:00:00 Inactiv e 06/21/2015 [facility] Dakins Quarter Strength Solution Notes: (Dakin's (0.125%=1/4 strength) 473ml top SOLN) For external use only. Note: quarter strength = 0.125% sodium hypochlorite. No Longer Active 06/19/2015 [facility] Cubicin + Sodium Chloride 0.9% IV 100 mL Notes: (Same As: Cubicin) Restricted use to Infectious Disease Physicians. MEDICATION WASTE Product Size: 500 mg Product Wasted: ___ mg No Longer Active 06/19/2015 [facility] gentamicin + Sodium Chloride 0.9% IV 100 mL Notes: TIME CRITICAL MEDICATION (Same as Garamycin) Inactive 06/19/2015 [facility] Cubicin 279.2 mg, Route: IVPB, Q24H, Dosing Weight 69.8, kg, Start date: 06/19/15 13:00:00, Duration: 30 day, Stop date: 07/18/15 13:00:00 Inactive 06/19/2015 [facility] Gentamicin Sulfate (FCI) 320 m g, Route: IVPB, ONCE, Dosing Weight 69.8, kg, Start date: 06/19/15 12:31:00, Stop date: 06/19/15 12:31:00 Inactive 06/19/2015 [facility] Zinc Sulfate Notes: (Zinc sulf ate capsule) - 220 mg Zinc sulfate = 50 mg elemental zinc Same as Zinc Sulfate No Longer Active 06/18/2015 [facility] Test tab Test tab, 1 tab, Drug form: MISC, Route: PO, Daily, 06/18/15 9:00:00, Duration: 30 day, Stop date: 07/17/15 9:00:00 No Longer Active 06/18/2015 [facility] Amitriptyline Notes: (Same as: Elavil) No Longer Active 06/18/2015 [facility] Alteplase 1 MG/ML Injectable Solution [C athflo Activase] Notes: "Syringe for catheter clearance o r interventional radiology use. Reconstitute each vial of Cathflo Activase with 2.2 ml Sterile Water resulting in a 1 mg/ml solution. Stable for 8 hours only. (Same as: Activase) MEDICATION WASTE Product Size: 2 mg Product Wasted: ___ mg Inactive 06/17/2015 [facility] vancomycin + Sodium Chloride 0.9% IV 250 mL 2001 mg: infuse over 2.5 hours MEDICATION WASTE Product Size: 1000 mg Product Wasted: ___ mg No Longer Active 06/17/2015 [facility] Lovenox Notes: (Same as: Loven ox) No Longer Active 06/17/2015 [facility] meropenem + Sodium Chloride 0.9% IV 100 mL Notes: Same as Merrem MEDICATION WASTE Product Size: 500 mg Product Wasted: ___ mg No Longer Active 06/17/2015 [facility] Nicotine Notes: (Same as: Roney montague) "Remove old patch before application of new patch" No Longer Active 06/17/2015 [facility] ascorbic acid Notes: (Same as: Vitamin C) No Longer Active 06/17/2015 [facility] meropenem 500 mg, Route: IVPB, Drug form: PDR/INJ, [id number], Dosing Weight 69.8, kg, CrCL= 26 -49 ml/min, Extended infusion, infuse over 3 hours, Start date: 06/17/15 9:00:00, Duration: 30 day, Stop date: 07/17 1:00:00 Inactive 06/17/2015 [facility] Vancomycin 1 gm, Route: IVPB, Drug form: INJ, [id number], Dosing Weight 69.8, kg, Start date: 06/17/15 9:00:00, Duration: 30 day, Stop date: 07/16/15 21:00:00 Inactive 06/17/2015 [facility] Enoxaparin 30 mg, Route: SUB-Q , Drug form: INJ, [id number], Dosing Weight 69.8, kg, Start date: 06/17/15 9:00:00, Duration: 30 day, Stop date: 07/16/15 21:00:00 Inactive 06/17/2015 [facility] Acetaminophen Notes: Do not ex ceed 4 gm/day. (Same as: Tylenol) No Longer Active 06/17/2015 [facility] Morphine Notes: (Same as:MORPh ine Sulfate) No Longer Active 06/17/2015 [facility] Ondansetron Notes: (Same as: Kory davis) MEDICATION WASTE Product Size: 4 mg Product Wasted: ___ mg No Longer Active 06/17/2015 [facility] Sodium Chloride 0.154 MEQ/ML Injectable Solution 1,000 mL, Rate: 75 ml/hr, Infuse over: 13.3 hr, Route: IV, Dosing Weight 69.8 kg, Total Volume: 1,000, Start date: 06/17/15 8:47:00, Duration: 30 day, Stop date: 07/17/15 8:46:00 No Longer Active 06/17/2015 [facility] Saline Flush 0.9% 10 ml, Route : IVP, Drug Form: INJ, Dosing Weight 69.8, kg, PRN, PRN Line Flush, Start date: 06/17/15 8:47:00, Duration: 30 day, Stop date: 07/17/15 8:46:00 Inactive 06/17/2015 [facility] Methadone Notes: (Same as: Dol ophine) No Longer Active 06/17/2015 [facility] Atropine Sulfate 0.025 MG / Diphenoxylat e Hydrochloride 2.5 MG Oral Tablet Notes: (Same As: Lomotil) MAX Adult dose = 8 tabs/day No Longer Active 06/17/2015 [facility] Alprazolam Notes: With food or milk (Same as: Xanax) No Longer Active 06/17/2015 [facility] Acetaminophen 325 MG / Hydrocodone Micheal trate 10 MG Oral Tablet Notes: Do not exceed 4gm/day of acetamin ophen. (Same as: [place] 325/10) No Longer Active 06/17/2015 [facility] Morphine Notes: (Same as:MORPh ine Sulfate) Inactive 06/17/2015 [facility] nicotine 2 mg oral transmucosal gum 2 mg = 1 ea, CHEW, Q2H, PRN for smoking cessation, # 50 ea, 0 Refill(s) Active 06/17/2015 [facility] meropenem Notes: Same as Barak jamil MEDICATION WASTE Product Size: 500 mg Product Wasted: ___ mg Inactive 06/17/2015 [facility] Vancomycin 2001 mg: infuse ov er 2.5 hours Inactive 06/17/2015 [facility] Morphine Notes: (Same as:MORPh ine Sulfate) Inactive 06/17/2015 [facility] Saline Flush 0.9% Notes: (Same as: BD Posiflush) No Longer Active 06/17/2015 [facility] Saline Flush 0.9% Notes: (Same as: BD Posiflush) No Longer Active 06/17/2015 [facility] nicotine 2 mg oral transmucosal gum 2 mg = 1 ea, CHEW, Q2H, PRN for smoking cessation, X 4 day, # 50 ea, 0 Refill(s) Active 06/05/2015 [facility] 24 HR Nicotine 0.583 MG/HR Transdermal Patch = 1 patch, TOP, Daily, X 30 day, # 30 patch, 0 Refill(s) Active 06/05/2015 [facility] Tobramycin Notes: TIME CRITICA L MEDICATION (Same As: Nebcin) Inactive 06/05/2015 [facility] Flagyl Notes: (Same as: Flagyl ) Avoid alcohol. Inactive 06/05/2015 [facility] Nicotine 4 mg chew tab Nicotin e 4 mg chew tab, 2 mg, Drug form: MISC, Route: PO, Q2H, PRN See Nurse's Notes, 06/04/15 18:15:00, Duration: 30 day, Stop date: 07/04/15 18:14:00 No Longer Active 06/05/2015 [facility] Vancomycin Notes: TIME CRITICA L MEDICATION No Longer Active 06/04/2015 [facility] Ondansetron 4 mg, Route: IVP, ONCE, Dosing Weight 71.001, kg, PRN Nausea & Vomiting, Start date: 06/03/15 9:22:00 Inactive 06/03/2015 [facility] Diphenhydramine 12.5 mg, Route : IVP, Drug form: INJ, Q6H, Dosing Weight 71.001, kg, PRN Itching, Start date: 06/03/15 9:22:00, Duration: 30 day, Stop date: 07/03/15 9:21:00 Inactive 06/03/2015 [facility] Morphine 2 mg, Route: IVP, Q5M in, Dosing Weight 71.001, kg, PRN Pain Score 4-6, Start date: 06/03/15 9:22:00, Duration: 5 doses or times, Stop date: Limited # of times Inactive 06/03/2015 [facility] Naloxone 0.04 mg, Route: IVP, Q2MIN, Dosing Weight 71.001, kg, PRN Narcotic Reversal, Start date: 06/03/15 9:22:00, Duration: 8 doses or times, Stop date: Limited # of times Inactive 06/03/2015 [facility] Flumazenil 0.2 mg, Route: IVP, PRN, Dosing Weight 71.001, kg, PRN Benzodiazepine Reversal, Initial dose, Start date: 06/03/15 9:22:00, Duration: 30 day, Stop date: 07/03/15 8:21:00 Inactive 06/03/2015 [facility] Calcium Chloride 0.0014 MEQ/ML / Potassi um Chloride 0.004 MEQ/ML / Sodium Chloride 0.103 MEQ/ML / Sodium Lactate 0.028 MEQ/ML Injectable Solution 1,000 mL, Rate: 25 ml/hr, Infuse over: 4 0 hr, Route: IV, Dosing Weight 71.001 kg, Total Volume: 1,000, Start date: 06/03/15 9:21:00, Duration: 30 day, Stop date: 07/03/15 9:20:00 Inactive 06/03/2015 [facility] Dakins Solution 0.5% topical N otes: (Dakin's (0.5% =full strength) 480 ml top SOLN) Note: full strength = 0.5% sodium hypochlorite. No Longer Active 06/03/2015 [facility] ondansetron (ANES) Route: IV, Drug form: INJ, ONCE, Stop date: 06/03/15 8:52:00 Inactiv e 06/03/2015 [facility] esmolol (ANES) Route: IV, Drug form: INJ, ONCE, Stop date: 06/03/15 8:52:00 Inactiv e 06/03/2015 [facility] ketAMINE (ANES) Route: IV, Arden g form: INJ, ONCE, Stop date: 06/03/15 8:52:00 Inactiv e 06/03/2015 [facility] propofol (ANES) Route: IV, Arden g form: INJ, ONCE, Stop date: 06/03/15 8:52:00 Inactiv e 06/03/2015 [facility] midazolam (ANES) Route: IV, Dr ug form: SOLN, ONCE, Stop date: 06/03/15 8:49:00 Inactiv e 06/03/2015 [facility] fentaNYL (ANES) Route: IV, Arden g form: INJ, ONCE, Stop date: 06/03/15 8:49:00 Inactiv e 06/03/2015 [facility] Sodium Chloride 0.9% IV (ANES) (ANES) Route: IV, Total Volume: 500, Start date: 06/03/15 8:06:00, Stop date: 06/03/15 9:06:00 Inactive 06/03/2015 [facility] Ondansetron 4 mg, Route: IVP, ONCE, Dosing Weight 71.001, kg, PRN Nausea & Vomiting, Start date: 06/02/15 12:26:00 Inactive 06/02/2015 [facility] Naloxone 0.04 mg, Route: IVP, Q2MIN, Dosing Weight 71.001, kg, PRN Narcotic Reversal, Start date: 06/02/15 12:26:00, Duration: 8 doses or times, Stop date: Limited # of times Inactive 06/02/2015 [facility] Flumazenil 0.2 mg, Route: IVP, PRN, Dosing Weight 71.001, kg, PRN Benzodiazepine Reversal, Initial dose, Start date: 06/02/15 12:26:00, Duration: 30 day, Stop date: 07/02/15 11:25:00 Inactive 06/02/2015 [facility] Acetaminophen 1,000 mg, Route: IVPB, Drug form: INJ, ONCE, Dosing Weight 71.001, kg, PRN Pain Score 1-3, Start date: 06/02/15 12:26:00, Duration: 1 doses or times, Stop date: Limited # of times Inactive 06/02/2015 [facility] Oxycodone Hydrochloride 1 MG/ML Oral Solution 5 mg, Route: NG, Drug form: LIQ, Q4H, Dosing Weight 71.001, kg, PRN Pain Score 4-6, Start date: 06/02/15 12:26:00, Duration: 30 day, Stop date: 07/02/15 12:25:00 Inactive 06/02/2015 [facility] Meperidine 12.5 mg, Route: IVP , Q30Min, Dosing Weight 71.001, kg, PRN Other -See Comment, For shivering, Start date: 06/02/15 12:26:00, Duration: 2 doses or times, Stop date: Limited # of times Inactive 06/02/2015 [facility] Hydromorphone 0.5 mg, Route: I [employer] WORKER, Q5Min, Dosing Weight 71.001, kg, PRN Pain Score 7-10, Start date: 06/02/15 12:26:00, Duration: 4 doses or times, Stop date: Limited # of times Inactive 06/02/2015 [facility] Fentanyl 50 microgram, Route: IVP, Q5Min, Dosing Weight 71.001, kg, PRN Pain Score 7-10, Start date: 06/02/15 12:26:00, Duration: 2 doses or times, Stop date: Limited # of times Inactive 06/02/2015 [facility] Calcium Chloride 0.0014 MEQ/ML / Potassi um Chloride 0.004 MEQ/ML / Sodium Chloride 0.103 MEQ/ML / Sodium Lactate 0.028 MEQ/ML Injectable Solution 1,000 mL, Rate: 25 ml/hr, Infuse over: 4 0 hr, Route: IV, Dosing Weight 71.001 kg, Total Volume: 1,000, Start date: 06/02/15 12:24:00, Duration: 30 day, Stop date: 07/02/15 12:23:00 Inactive 06/02/2015 [facility] Sodium Chloride 0.0769 MEQ/ML Injectable Solution 1,000 mL, Rate: 75 ml/hr, Infuse over: 13.3 hr, Route: IV, Dosing Weight 71.001 kg, Total Volume: 1,000, Start date: 06/02/15 9:59:00, Stop date: 07/02/15 9:58:00 No Longer Active 06/02/2015 [facility] Saline Flush 0.9% Notes: Same as: BD Posiflush Sterile No Longer Active 06/02/2015 [facility] remove patch Notes: Remove old patch before application of new patch. No Longer Active 05/31/2015 [facility] Nicotine Notes: (Same as: Roney montague) "Remove old patch before application of new patch" No Longer Active 05/31/2015 [facility] Magnesium Sulfate 2 gm, 50 mL, Route: IVPB, Drug form: INJ, Q2H, Dosing Weight 71.001, kg, Total dose = 4 gm, Start date: 05/30/15 16:00:00, Duration: 2 doses or times, Stop date: 05/30/15 18:00:00 Inactive 05/30/2015 [facility] Sodium Chloride 0.9% (titrate) 250 mL 250 mL, Rate: status controller for use with blood product administration, Dosing Weight 71.001, kg, Route: IV, Total Volume: 250, Start Date: 05/30/15 14:19:00, Duration: 30 day, Stop date: 06/29/15 14:18:00, Replace Every: 24 hr No Longer Active 05/30/2015 [facility] sodium hypochlorite topical 0.25% solution Notes: Note: half-strength = 0.25% sodium hypochlorite. No Longer Active 05/30/2015 [facility] Mycelex Troches Notes: (Same A s: Mycelex Iggy) Active 05/30/2015 [facility] Nicotine Notes: (Same as: Roney montague) "Remove old patch before application of new patch" No Longer Active 05/30/2015 [facility] Morphine Notes: (Same as:MORPh ine Sulfate) No Longer Active 05/30/2015 [facility] Nicotine 2 mg, Route: CHEW, Dr ug form: GUM, Q2H, Dosing Weight 71.001, kg, PRN as needed for smoking cessation, Start date: 05/30/15 10:26:00, Duration: 30 day, Stop date: 06/29/15 10:25:00 No Longer Active 05/30/2015 [facility] Lidocaine Viscous 2% mucous membrane solution Notes: (Same as: Xylocaine) No Longer Active 05/30/2015 [facility] Vancomycin 2001 mg: infuse ov er 2.5 hours MEDICATION WASTE Product Size: 1000 mg Product Wasted: 250 mg No Longer Active 05/30/2015 [facility] Sodium Chloride 0.9% IV IV, 10 00 ml/hr, ONCE, Start date: 05/29/15 21:16:00, 1,000 ml Inactive 05/30/2015 [facility] Beneprotein 7 gm pkt Notes: (S marva as: Beneprotein) No Longer Active 05/29/2015 [facility] Zinc Sulfate Notes: (Zinc sulf ate capsule) - 220 mg Zinc sulfate = 50 mg elemental zinc Same as Zinc Sulfate No Longer Active 05/29/2015 [facility] Amitriptyline Notes: (Same as: Elavil) No Longer Active 05/29/2015 [facility] Alprazolam Notes: With food or milk (Same as: Xanax) No Longer Active 05/29/2015 [facility] Merrem Notes: Same as Merrem MEDICATION WASTE Product Size: 500 mg Product Wasted: ___ mg No Longer Active 05/29/2015 [facility] ascorbic acid Notes: (Same as: Vitamin C) No Longer Active 05/28/2015 [facility] Dilaudid Notes: (Same as: Dila udid) No Longer Active 05/28/2015 [facility] Morphine Notes: (Same as:MORPh ine Sulfate) No Longer Active 05/28/2015 [facility] Vancomycin Notes: TIME CRITICA L MEDICATION No Longer Active 05/28/2015 [facility] pneumococcal capsular polysaccharide typ e 1 vaccine / pneumococcal capsular polysaccharide type 10A vaccine / pneumococcal capsular polysaccharide type 11A vaccine / pneumococcal capsular polysaccharide type 12F vaccine / pneumococcal capsular polysacchar Notes: (Same as: Pneumovax 23) Refrigerate Inactive 05/28/2015 [facility] methadone 10 mg oral tablet 10 mg = 1 tab, PO, Q12H, PRN Pain, 0 Refill(s) Active 05/28/2015 [facility] Maxipime Notes: (Same As: Franco guaman) MEDICATION WASTE Product Size: 1000 mg Product Wasted: ___ mg Inactive 05/28/2015 [facility] Enoxaparin Notes: (Same as: Lo venox) No Longer Active 05/28/2015 [facility] Sodium Chloride 0.154 MEQ/ML Injectable Solution 1,000 mL, Rate: 150 ml/hr, Infuse over: 6.7 hr, Route: IV, Dosing Weight 63.636 kg, Total Volume: 1,000, Start date: 05/27/15 21:26:00, Stop date: 06/26/15 21:25:00 No Longer Active 05/28/2015 [facility] Ondansetron Notes: (Same as: Kory davis) MEDICATION WASTE Product Size: 4 mg Product Wasted: ___ mg No Longer Active 05/28/2015 [facility] Morphine Notes: (Same as:MORPh ine Sulfate) No Longer Active 05/28/2015 [facility] Acetaminophen 325 MG / Hydrocodone Micheal trate 5 MG Oral Tablet Notes: (Same as: [place] 325/5) Do not ex ceed 4gm/day of acetaminophen. No Longer Active 05/28/2015 [facility] Vancomycin 2001 mg: infuse ov er 2.5 hours MEDICATION WASTE Product Size: 1000 mg Product Wasted: ___ mg Inactive 05/28/2015 [facility] Rosa Notes: (Same As: Yandy chambers). Use with 100ml NS mini-bag PLUS and infuse over 30 min MEDICATION WASTE Product Size: 1000 mg Product Wasted: ___ mg Inactive 05/28/2015 [facility] Sodium Chloride 0.154 MEQ/ML Injectable Solution 1,000 mL, 1,000 ml/hr, Infuse Over: 1 hr, Route: IV, 1,000, Drug form: INJ, ONCE, Priority: STAT, Dosing Weight 63.636 kg, Start date: 05/27/15 18:37:00, Duration: 1 doses or times, Stop date: 05/27/15 18:37:00 Inactive 05/27/2015 [facility] cadexomer iodine 0.009 MG/MG Topical Gel 1 appl, TOP, Daily, 0 Refill(s) Active 06/29/2014 [facility] Atropine Sulfate 0.025 MG / Diphenoxylat e Hydrochloride 2.5 MG Oral Tablet 1 tab, PO, Q6H, Diarrhea, 0 Refill(s) Active 06/29/2014 [facility] ascorbic acid 500 mg oral tablet 500 mg = 1 tab, PO, BID, 0 Refill(s) Active 06/29/2014 [facility] Acetaminophen 325 MG / Hydrocodone Micheal trate 10 MG Oral Tablet 1 tab, PO, Q6H, Pain, 0 Refill(s) Active 06/29/2014 [facility] ALPRAZOLam 0.5 mg oral tablet, disintegrating 0.5 mg, PO, TID, Anxiety, 0 Refill(s) Active 06/29/2014 [facility] zinc sulfate 220 mg oral capsule 220 mg = 1 cap, PO, Daily, 0 Refill(s) Active 06/29/2014 [facility] methocarbamol 750 mg oral tablet 750 mg = 1 tab, PO, Q8H, 0 Refill(s) Active 06/29/2014 [facility] cadexomer-iodine topical Notes : Non-Formulary Drug. For external use only. (Same As: Iodosorb) Inactive 06/29/2014 [facility] atropine-diphenoxylate 0.025 mg-2.5 mg oral tablet Notes: (Same As: Lomotil) MAX Adult dose = 8 tabs/day Inactive 06/29/2014 [facility] Potassium Chloride Notes: (Corey e as: K-Dur 20) "Do Not Crush" With food and full glass of water Inactive 06/29/2014 [facility] atropine-diphenoxylate 0.025 mg-2.5 mg oral tablet Notes: (Same As: Lomotil) MAX Adult dose = 8 tabs/day No Longer Active 06/29/2014 [facility] Vitamin C Notes: (Same as: Vit ayala C) No Longer Active 06/28/2014 [facility] meropenem Notes: Same as Barak tolbert No Longer Active 06/28/2014 [facility] Zinc Sulfate Notes: (Zinc sulf ate capsule) - 220 mg Zinc sulfate = 50 mg elemental zinc Same as Zinc Sulfate No Longer Active 06/28/2014 [facility] Magnesium Sulfate 2 gm, 50 mL, Route: IVPB, Drug form: INJ, ONCE, Dosing Weight 64.688, kg, Total dose = 2 gm, Start date: 06/28/14 10:23:00, Duration: 1 doses or times, Stop date: 06/28/14 10:23:00 Inactive 06/28/2014 [facility] Vancomycin 2001 mg: infuse ov er 2.5 hours No Longer Active 06/28/2014 [facility] acetaminophen-hydrocodone 325 mg-10 mg oral tablet Notes: Do not exceed 4gm/day of acetaminophen. (Same as: [place] 325/10) No Longer Active 06/28/2014 [facility] D5NS 1,000 mL 1,000 mL, Rate: 100 ml/hr, Infuse over: 10 hr, Route: IV, Dosing Weight 64.688 kg, Total Volume: 1,000, Start date: 06/27/14 12:05:00, Stop date: 07/25/14 21:25:00 Inactive 06/27/2014 [facility] Robaxin Notes: (Same as:Robaxi n) No Longer Active 06/27/2014 [facility] Soma 350 mg, Route: PO, Q8H, D osing Weight 64.688, kg, Start date: 06/27/14 0:00:00, Duration: 30 day, Stop date: 07/26/14 16:00:00 No Longer Active 06/27/2014 [facility] Amitriptyline Notes: (Same as: Elavil) No Longer Active 06/27/2014 [facility] heparin, porcine Notes: porcin e heparin No Longer Active 06/27/2014 [facility] Acetaminophen 300 MG / Codeine Phosphate 30 MG Oral Tablet [Tylenol with Codeine #3] Notes: Do not exceed 4gm/day of acetamin ophen. (Same as: Tylenol with Codeine # 3) No Longer Active 06/26/2014 [facility] Alprazolam Notes: With food or milk (Same as: Xanax) No Longer Active 06/26/2014 [facility] amitriptyline 100 mg oral tablet 100 mg = 1 tab, PO, Bedtime, # 30 tab, 0 Refill(s) Active 06/26/2014 [facility] lisinopril 5 mg oral tablet 5 mg = 1 tab, PO, Daily, # 30 tab, 0 Refill(s) No Longer Active 06/26/2014 [facility] Ibuprofen 400 MG Oral Tablet 4 00 mg = 1 tab, PO, Q12H, as needed for fever, 0 Refill(s) No Longer Active 06/26/2014 [facility] fluconazole 200 mg oral tablet 200 mg = 1 tab, PO, Daily, # 10 tab, 0 Refill(s) N o Longer Active 06/26/2014 [facility] Magnesium Sulfate 2 gm, 50 mL, Route: IVPB, Drug form: INJ, ONCE, Dosing Weight 64.688, kg, Total dose = 2 gm, Start date: 06/26/14 11:56:00, Duration: 1 doses or times, Stop date: 06/26/14 11:56:00 Inactive 06/26/2014 [facility] Naloxone Notes: Same as Narcan Inactive 06/26/2014 [facility] Sodium Chloride 0.154 MEQ/ML Injectable Solution 1,000 mL, Rate: 100 ml/hr, Infuse over: 10 hr, Route: IV, Dosing Weight 72.727 kg, Total Volume: 1,000, Start date: 06/26/14 2:10:00, Duration: 30 day, Stop date: 07/26/14 2:09:00 Inactive 06/26/2014 [facility] Flumazenil Notes: (Same as: Ro mazicon) Inactive 06/26/2014 [facility] Zosyn Notes: (Same as: Zosyn) Dosing based on Piperacillin component No Longer Active 06/26/2014 [facility] Vancomycin 1 gm, 200 mL, Route : IV, Drug form: INJ, [id number], Dosing Weight 72.727, kg, Start date: 06/25/14 22:00:00, Duration: 30 day, Stop date: 07/25/14 10:00:00 No Longer Active 06/26/2014 [facility] Lovenox 40 mg, Route: SUB-Q, D rug form: INJ, ONCE, Dosing Weight 72.727, kg, Priority: STAT, Start date: 06/25/14 21:31:00, Stop date: 06/25/14 21:31:00 Inactive 06/26/2014 [facility] Sodium Chloride 0.154 MEQ/ML Injectable Solution 1,000 mL, 1,000 ml/hr, Infuse Over: 1 hr, Route: IV, ONCE, Priority: STAT, Dosing Weight 72.727 kg, Start date: 06/25/14 21:29:00, Duration: 1 doses or times, Stop date: 06/25/14 21:29:00 Inactive 06/26/2014 [facility] D5NS 1,000 mL 1,000 mL, Rate: 125 ml/hr, Infuse over: 8 hr, Route: IV, Dosing Weight 72.727 kg, Total Volume: 1,000, Start date: 06/25/14 21:27:00, Duration: 30 day, Stop date: 07/25/14 21:26:00 No Longer Active 06/26/2014 [facility] Acetaminophen Notes: Do not ex ceed 4 gm/day. (Same as: Tylenol) No Longer Active 06/26/2014 [facility] Ondansetron Notes: (Same as: Kory davis) No Longer Active 06/26/2014 [facility] Sodium Chloride 0.154 MEQ/ML Injectable Solution 1,000 mL, 1,000 ml/hr, Infuse Over: 1 hr, Route: IV, 1,000, Drug form: INJ, ONCE, Priority: STAT, Dosing Weight 72.727 kg, Start date: 06/25/14 21:04:00, Duration: 1 doses or times, Stop date: 06/25/14 21:04:00 Inactive 06/26/2014 [facility] [place] Notes: (Same As: Yandy chambers). Use with 100ml NS mini-bag PLUS and infuse over 30 min Inactive 06/26/2014 [facility] Saline Flush 0.9% Notes: Same as: BD Posiflush Sterile No Longer Active 06/25/2014 [facility] enoxaparin 30 mg, 0.3 mL, Rout e: SUB-Q, Drug form: INJ, [id number], Dosing Weight 68.182, kg, Start date: 05/22/12 17:00:00, Duration: 30 day, Stop date: 06/21/12 5:00:00 SUB-Q No Longer Active [place] 05/22/2012 [facility] docusate sodium 100 mg oral capsule 100 mg, 1 cap, Route: PO, Drug form: CAP, BID, Dosing Weight 68.182, kg, Start date: 05/22/12 17:00:00, Duration: 30 day, Stop date: 06/21/12 9:00:00 PO No Longer Active [place] 05/22/2012 [facility] Sodium Chloride 0.45% IV 1,000 mL 1,000 mL, Rate: 100 ml/hr, Infuse over: 10 hr, Route: IV, kg, Total Volume: 1,000, Start date: 05/22/12 15:20:00, Duration: 30 day, Stop date: 06/21/12 15:19:00 IV No Longer Active [place] 05/22/2012 [facility] Saline Flush 0.9% 5 ml, Route: IVP, Drug Form: INJ, Dosing Weight 68.182, kg, PRN, PRN Line Flush, Start date: 05/22/12 15:20:00, Duration: 30 day, Stop date: 06/21/12 14:19:00 IVP No Longer Active [place] 05/22/2012 [facility] acetaminophen-hydrocodone 325 mg-5 mg oral tablet 2 tab, Route: PO, Drug Form: TAB, Dosing Weight 68.182, kg, Q4H, PRN Pain Score 4-6, Start date: 05/22/12 15:20:00, Duration: 30 day, Stop date: 06/21/12 15:19:00 PO No Longer Active Najma 012 [facility] Dulcolax Laxative 5 mg, 1 tab, Route: PO, Drug form: ECTAB, Q24H, Dosing Weight 68.182, kg, PRN Constipation, Start date: 05/22/12 15:20:00, Duration: 30 day, Stop date: 06/21/12 15:19:00 PO No Longer Active Najma 05/22/2012 [facility] promethazine 12.5 mg, 0.5 mL, Route: IM, Drug form: INJ, Q4H, Dosing Weight 68.182, kg, PRN Nausea & Vomiting, Start date: 05/22/12 15:20:00, Duration: 30 day, Stop date: 06/21/12 15:19:00 IM No Longer Active Najma 05/22/2012 [facility] Lactated Ringers Injection IV 1,000 mL 1,000 mL, Rate: 25 ml/hr, Infuse over: 40 hr, Route: IV, kg, Total Volume: 1,000, Start date: 05/22/12 12:17:00, Stop date: 05/22/12 17:00:00 IV No Longer Active Vera 05/22/2012 [facility] cefepime + Sodium Chloride 0.9% IV 100 mL 1 gm, Route: IVPB, Drug form: INJ, [id number], Dosing Weight 68.182, kg, (CrCl >/= 50 ml/min), Priority: Routine, Start date: 05/22/12 12:00:00, Duration: 30 doses or times, Stop date: 06/01/12 4:00:00 IVPB No Longer Active Abhinav 05/22/2012 [facility] cefepime 1 g injection 1 gm, I V, Q8H, 30 doses or times, Substitution Allowed IV Active [facility] 05/22/2012 [facility] Zofran 4 mg, 1 tab, Route: PO, Drug form: TAB, Q8H, Dosing Weight 68.182, kg, PRN Nausea, Priority: Routine, Start date: 05/22/12 11:21:00, Duration: 30 day, Stop date: 06/21/12 11:20:00 PO No Longer Active Abhinav 05/22/2012 [facility] NS 1,000 mL 1,000 mL, Rate: 12 5 ml/hr, Infuse over: 8 hr, Route: IV, kg, Total Volume: 1,000, Priority: NOW, Start date: 05/22/12 11:20:00, Duration: 1 doses or times, Stop date: 05/22/12 19:19:00 IV No Longer Active [place] 05/22/2012 [facility] Silvadene 1% topical cream 1 a ppl, TOP, BID, 1 tube, Substitution Allowed, CRM TOP Active [facility] 05/22/2012 [facility] Bactroban 2% topical cream 1 a ppl, TOP, BID, 1 tube, Substitution Allowed, CRM TOP Active [facility] 05/22/2012 [facility] Robaxin 500 mg oral tablet 750 mg, 1.5 tab, PO, TID, 90 tab, Substitution Allowed, TAB PO Active [facility] 05/22/2012 [facility] Bactrim DS oral tablet 1 tab, PO, Q12H, 30 tab, Substitution Allowed, Maintenance, TAB PO No [facility] Bactrim DS 1 tab, Route: PO, D rug Form: TAB, Dosing Weight 68.182, kg, Q12H, Routine, Start date: 05/21/12 14:00:00, Duration: 28 doses or times, Stop date: 06/03/12 21:00:00 [facility] Teflaro + Sodium Chloride 0.9% IV 100 mL 600 mg, Route: IV, Drug form: INJ, [id number], Dosing Weight 68.182, kg, Priority: Routine, Start date: 05/20/12 16:00:00, Duration: 30 day, Stop date: 06/19/12 4:00:00 IV No Longer Active [facility] 05/20/2012 [facility] BD Posiflush SF 5 mL, Route: 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[employer]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, Drug Form: INJ, PRN, PRN Line Flush, Start date: 05/20/12 11:59:00, Duration: 30 day, Stop date: 06/19/12 10:58:00 IVP No Longer Active Merlene 05/20/2012 [facility] Bactroban 2% topical cream 1 a ppl, Route: TOP, BID, Drug form: CRM, Priority: Routine, Start date: 05/19/12 11:00:00, Duration: 7 day, Stop date: 05/26/12 9:00:00 TOP No Longer Active [place] 05/19/2012 [facility] Merrem + Sodium Chloride 0.9% IV 100 mL 500 mg, Route: IVPB, [id number], Dosing Weight 68.182, kg, Extended infusion, infuse over 3 hours, Priority: Routine, Start date: 05/19/12 11:00:00, Duration: 30 day, Stop date: 06/18/12 5:00:00, CrCl > = 50 mL/min = 50 mL/min IVPB No Longer Active [place] 05/19/2012 [facility] vancomycin 1 gm, 250 mL, Route : IVPB, Drug form: INJ, [id number], Dosing Weight 68.182, kg, Priority: Routine, Start date: 05/19/12 11:00:00, Duration: 30 day, Stop date: 06/17/12 23:00:00 IVPB No Longer Active [place] 05/19/2012 [facility] Tylenol 650 mg, 2 tab, Route: PO, Drug form: TAB, Q4H, PRN Fever, Start date: 05/18/12 23:47:00, Duration: 30 day, Stop date: 06/17/12 23:46:00 PO No Longer Active Korrapati 05/19/2012 [facility] lidocaine topical 4% cream 1 a ppl, Route: TOP, BID, Start date: 05/18/12 9:00:00, Duration: 7 day, Stop date: 05/24/12 17:00:00 TOP No Longer Active [place] 05/18/2012 [facility] lidocaine topical 1 appl, Rout e: TOP, BID, Drug form: OINT, Start date: 05/18/12 9:00:00, Duration: 7 day, Stop date: 05/24/12 17:00:00 TOP No Longer Active [place] 05/18/2012 [facility] Silvadene 1% topical cream 1 a ppl, Route: TOP, BID, Drug form: CRM, Priority: Routine, Start date: 05/17/12 17:00:00, Duration: 14 day, Stop date: 05/31/12 9:00:00 TOP No Longer Active [place] 05/17/2012 [facility] Bactrim DS 1 tab, Route: PO, D rug Form: TAB, Dosing Weight 68.182, kg, Q12H, Routine, Start date: 05/17/12 14:00:00, Duration: 30 day, Stop date: 06/16/12 9:00:00 PO No Longer Active [place] 05/17/2012 [facility] Dilaudid 2 mg, 1 tab, Route: P O, Drug form: TAB, Q4H, Dosing Weight 68.182, kg, PRN Pain, Start date: 05/17/12 10:07:00, Stop date: 06/16/12 10:06:00 PO No Longer Active [place] 05/17/2012 [facility] multivitamin 1 tab, Route: PO, Drug Form: TAB, Dosing Weight 68.182, kg, Daily, Start date: 05/17/12 9:00:00, Duration: 30 day, Stop date: 06/15/12 9:00:00 PO No Longer Active [place] 05/17/2012 [facility] Vitamin C 500 mg, 1 tab, Route : PO, Drug form: TAB, Daily, Dosing Weight 68.182, kg, Start date: 05/17/12 9:00:00, Duration: 30 day, Stop date: 06/15/12 9:00:00 PO No Longer Active [place] 05/17/2012 [facility] Xanax 1 mg, 1 tab, Route: PO, Drug form: TAB, ONCE, Start date: 05/17/12 2:30:00, Stop date: 05/17/12 2:30:00 PO No Longer Active [place]lan 05/17/2012 [facility] cranberry Route: PO, Drug Form : CAP, Dosing Weight 68.182, kg, BID, Start date: 05/16/12 17:00:00, Duration: 30 day, Stop date: 06/15/12 9:00:00 PO No Longer Active [place] 05/16/2012 [facility] Robaxin 750 mg, 1 tab, Route: PO, Drug form: TAB, TID, Start date: 05/16/12 13:00:00, Duration: 30 day, Stop date: 06/15/12 9:00:00 PO No Longer Active [place] 1 [facility] gabapentin 300 mg oral capsule 300 mg, 1 cap, Route: PO, Drug form: CAP, TID, Dosing Weight 68.182, kg, Start date: 05/16/12 13:00:00, Duration: 30 day, Stop date: 06/15/12 9:00:00 PO No Longer Active [place] 05/16/2012 [facility] Soma 350 mg, Route: PO, TID, D osing Weight 68.182, kg, Start date: 05/16/12 13:00:00, Duration: 30 day, Stop date: 06/15/12 9:00:00 PO No Longer Active [place] 1 [facility] ALPRAZOLam 2 mg, 2 tab, Route: PO, Drug form: TAB, BID, Dosing Weight 68.182, kg, Start date: 05/16/12 11:15:00, Duration: 30 day, Stop date: 06/15/12 9:00:00 PO No Longer Active [place] 05/16/2012 [facility] acetaminophen-hydrocodone 325 mg-5 mg oral tablet 1 tab, Route: PO, Drug Form: TAB, Dosing Weight 68.182, kg, Q4H, PRN Pain, Start date: 05/16/12 10:30:00, Duration: 30 day, Stop date: 06/15/12 10:29:00 PO No Longer Active [place] 05/16/2012 [facility] heparin 5,000 unit, 1 mL, Rout e: SUB-Q, Drug form: INJ, Q12H, Dosing Weight 68.182, kg, Start date: 05/16/12 9:00:00, Duration: 30 day, Stop date: 06/14/12 21:00:00 SUB-Q No Longer Active Merlene 05/16/2012 [facility] multivitamin Substitution Allo wed, Maintenance Active [place] 05/16/2012 [facility] cranberry oral capsule Substit ution Allowed, Maintenance Active [place] 05/16/2012 [facility] Vitamin C 500 mg oral capsule 500 mg, 1 cap, PO, Daily, 30 cap, Substitution Allowed, CAP PO Active Garry ineni 05/16/2012 [facility] gabapentin 300 mg oral capsule 300 mg, 1 cap, PO, TID, 90 cap, Substitution Allowed PO Active [place] 05/16/2012 [facility] OXYcodone 30 mg oral tablet 30 mg, 1 tab, PO, Q6H, PRN, Pain, Substitution Allowed, TAB PO Active 05/16/2012 [facility] influenza virus vaccine, inactivated 0.5 mL, Route: IM, Drug Form: INJ, ONCALL, Start date: 05/16/12 6:55:20, Stop date: 06/15/12 6:50:20 IM No Longer Active [facility] 05/16/2012 [facility] pneumococcal 23-valent vaccine 0.5 ml, Route: IM, Drug Form: INJ, ONCALL, Start date: 05/16/12 6:55:20, Stop date: 06/15/12 6:50:20 IM No Longer Active [facility] 05/04 [facility] ondansetron 4 mg, 2 mL, Route: IVP, Drug form: INJ, Q6H, Dosing Weight 68.182, kg, PRN Nausea & Vomiting, Start date: 05/16/12 1:54:00, Duration: 30 day, Stop date: 06/15/12 1:53:00 IVP No Longer Active [place] 05/16/2012 [facility] Tylenol 650 mg, Route: PO, ONC E, Dosing Weight 68.182, kg, Priority: STAT, Start date: 05/16/12 0:05:00, Stop date: 05/16/12 0:05:00 PO No Longer Active [facility] 05/04 [facility] Robitussin-AC oral syrup 5 ml, PO, Q4H, PRN, 100 mL, for cough, Substitution Allowed, Maintenance, SYRP PO Active [facility] 05/16/2012 [facility] Cipro 500 mg oral tablet 500 m g, 1 tab, PO, Q12H, 28 tab, Substitution Allowed, TAB PO No Longer Active [facility] 05/16/2012 [facility] Cipro 500 mg, 1 tab, Route: PO , Drug form: TAB, ONCE, Dosing Weight 68.182, kg, Priority: STAT, Start date: 05/15/12 23:46:00, Stop date: 05/15/12 23:46:00 PO No Longer Active [facility] 05/16/2012 [facility] morphine Sulfate 4 mg, 1 mL, R oute: IVP, Drug form: INJ, ONCE, Dosing Weight 68.182, kg, Priority: STAT, Start date: 05/15/12 22:37:00, Stop date: 05/15/12 22:37:00 IVP No Longer Active [place] 05/16/2012 [facility] Zyvox 600 mg, 1 tab, Route: PO , Drug form: TAB, BID, Start date: 02/28/12 9:00:00, Duration: 30 day, Stop date: 03/28/12 17:00:[address] [facility] 02/02 [facility] Zyvox 600 mg, 1 tab, Route: PO , Drug form: TAB, BID, Start date: 02/27/12 21:00:00, Duration: 30 day, Stop date: 03/28/12 9:00:00 PO No Longer Active erick 02/02 [facility] Dilaudid 6 mg, 3 tab, Route: P O, Drug form: TAB, Q6H, Start date: 02/25/12 18:00:00, Duration: 30 day, Stop date: 03/26/12 12:00:00 PO No Longer Active Michael 02/02 [facility] Dilaudid 6 mg, 3 mL, Route: IV , Drug form: INJ, Q6H, PRN Pain, Start date: 02/25/12 17:18:00, Duration: 30 day, Stop date: 03/26/12 17:17:00 IV No Longer Active Eugeniohomerfausto 02/25/2012 [facility] Bactroban 1 appl, Route: TOP, Daily, Drug form: OINT, Start date: 02/25/12 9:00:00, Duration: 30 day, Stop date: 03/25/12 9:00:00 TOP No Longer Active Michael 02/02 [facility] Dilaudid 0.5 mg, Route: IVP, O NCE, Start date: 02/24/12 15:31:00, Stop date: 02/24/12 15:31:00 IVP No Longer Active Nguyễn 02/24/2012 [facility] Dilaudid 0.5 mg, Route: IVP, O NCE, Start date: 02/24/12 15:26:00, Stop date: 02/24/12 15:26:00 IVP No Longer Active Nguyễn 02/24/2012 [facility] Dilaudid 0.5 mg, Route: IVP, O NCE, Start date: 02/24/12 15:22:00, Stop date: 02/24/12 15:22:00 IVP No Longer Active Nguyễn 02/24/2012 [facility] Dilaudid 0.5 mg, Route: IVP, D rug form: INJ, ONCE, Start date: 02/24/12 15:21:00, Stop date: 02/24/12 15:21:00 IVP No Longer Active Nguyễn 02/24/2012 [facility] Dilaudid 0.5 mg, Route: IVP, O NCE, Start date: 02/24/12 15:16:00, Stop date: 02/24/12 15:16:00 IVP No Longer Active Nguyễn 02/24/2012 [facility] morphine Sulfate 2 mg, Route: IVP, ONCE, Start date: 02/24/12 15:15:00, Stop date: 02/24/12 15:15:00 IVP No Longer Active Nguyễn 02/24/2012 [facility] morphine Sulfate 2 mg, Route: IVP, ONCE, Start date: 02/24/12 15:10:00, Stop date: 02/24/12 15:10:00 IVP No Longer Active Nguyễn 02/24/2012 [facility] morphine Sulfate 2 mg, Route: IVP, ONCE, Start date: 02/24/12 15:07:00, Stop date: 02/24/12 15:07:00 IVP No Longer Active Nguyễn 02/24/2012 [facility] morphine Sulfate 2 mg, Route: IVP, ONCE, Start date: 02/24/12 15:06:00, Stop date: 02/24/12 15:06:00 IVP No Longer Active Nguyễn 02/24/2012 [facility] Zofran 4 mg, Route: IVP, ONCE, Start date: 02/24/12 15:06:00, Stop date: 02/24/12 15:06:00 IVP No Longer Active Nguyễn 02/24/2012 [facility] amitriptyline 150 mg, 1.5 tab, Route: PO, Drug form: TAB, Bedtime, Start date: 02/22/12 21:00:00, Duration: 30 day, Stop date: 03/22/12 21:00:[address] [facility] 02/23/2012 [facility] morphine Sulfate 15 mg, 1 tab, Route: PO, Drug form: TAB, Q4H-WA, Start date: 02/21/12 22:00:00, Stop date: 03/22/12 18:00:[address] [facility] 02/02 [facility] amitriptyline 50 mg, 2 tab, [place]: PO, Drug form: TAB, Bedtime, Start date: 02/21/12 21:00:00, Duration: 30 day, Stop date: 03/21/12 21:00:[address] [facility] 02/22/2012 [facility] Lovenox 40 mg, 0.4 mL, Route: SUB-Q, Drug form: INJ, Q24H, Start date: 02/21/12 17:00:00, Stop date: 02/23/12 17:00:00 SUB-Q No Longer Active [facility] 02/21/2012 [facility] Dilaudid 6 mg, 3 tab, Route: P O, Drug form: TAB, Q6H, Start date: 02/21/12 0:00:00, Duration: 30 day, Stop date: 03/21/12 18:00:[address] [facility] 02/02 [facility] Merrem + Sodium Chloride 0.9% IV 100 mL 500 mg, Route: IVPB, [id number], Start date: 02/18/12 22:00:00, Duration: 30 day, Stop date: 03/19/12 14:00:[address]PB No Longer Active [facility] 02/19/2012 [facility] Dilaudid 8 mg, 4 tab, Route: P O, Drug form: TAB, ONCE, Start date: 02/17/12 3:31:00, Stop date: 02/17/12 3:31:[address] [facility] 02/17/2012 [facility] Neurontin 1,200 mg, 3 cap, Rou te: PO, Drug form: CAP, Bedtime, Start date: 02/14/12 21:00:00, Duration: 30 day, Stop date: 03/14/12 21:00:00 PO No Longer Active Melissa 02/15/2012 [facility] Neurontin 600 mg, 2 cap, Route : PO, Drug form: CAP, TID, Start date: 02/14/12 13:00:00, Duration: 30 day, Stop date: 03/15/12 9:00:00 PO No Longer Active Melissa 02/01 [facility] Dilaudid 8 mg, 4 tab, Route: P O, Drug form: TAB, Q6H, Start date: 02/14/12 12:00:00, Duration: 30 day, Stop date: 03/15/12 9:00:00 PO No Longer Active Melissai 02/01 [facility] Dilaudid 4 mg, 2 tab, Route: P O, Drug form: TAB, Q6H, Start date: 02/13/12 20:00:00, Duration: 30 day, Stop date: 03/14/12 16:00:00 PO No Longer Active Michael 02/01 [facility] acetaminophen-hydrocodone 325 mg-10 mg oral tablet 1 tab, Route: PO, Drug Form: TAB, Q6H, Start date: 02/13/12 18:00:00, Duration: 30 day, Stop date: 03/14/12 14:00:00 PO No Longer Active Melissa 02/13/2012 [facility] Santyl 1 appl, Route: TOP, Aicha ly, Drug form: OINT, Start date: 02/13/12 9:00:00, Duration: 7 day, Stop date: 02/24/12 9:00:00 TOP No Longer Active Priscilla 02/01 [facility] Ditropan XL 10 mg, 2 tab, Rout e: PO, Drug form: ERTAB, Bedtime, Start date: 02/12/12 21:00:00, Duration: 30 day, Stop date: 03/12/12 21:00:00 PO No Longer Active Michael 02/13/2012 [facility] Rocephin + Sodium Chloride 0.9% IV 100 mL 1 gm, Route: IVPB, Daily, Start date: 02/12/12 17:00:00, Duration: 30 day, Stop date: 03/12/12 17:00:00 IVPB No Longer Active Michael 02/12/2012 [facility] lactobacillus rhamnosus GG 160 mg, 2 cap, Route: PO, Drug Form: CAP, TID, Start date: 02/12/12 17:00:00, Duration: 30 day, Stop date: 03/13/12 13:00:[address] [facility] 02/12/2012 [facility] Protonix 40 mg, 1 tab, Route: PO, Drug form: ECTAB, Before Dinner, Start date: 02/12/12 16:30:00, Duration: 30 day, Stop date: 03/12/12 16:30:00 PO No Longer Active 02/12/2012 [facility] Habitrol 21 mg, 1 patch, Route : TOP, Drug form: ERFILM, Q24H, Start date: 02/12/12 16:00:00, Duration: 30 day, Stop date: 03/12/12 16:00:00 TOP No Longer Active [facility] 02/12/2012 [facility] Maxipime + Sodium Chloride 0.9% IV 100 mL 1 gm, Route: IVPB, [id number], Start date: 02/12/12 16:00:00, Duration: 30 day, Stop date: 03/13/12 8:00:00 IVPB No Longer Active 02/12/2012 [facility] baclofen 10 mg, 1 tab, Route: PO, Drug form: TAB, Q6H, PRN See Nurse's Notes, Start date: 02/12/12 15:06:00, Duration: 30 day, Stop date: 03/13/12 15:05:00 PO No Longer Active 02/12/2012 [facility] Neurontin 300 mg, 1 cap, Route : PO, Drug form: CAP, TID, Start date: 02/12/12 10:30:00, Duration: 30 day, Stop date: 03/13/12 9:00:00 PO No Longer Active 02/01 [facility] Xanax 2 mg, 2 tab, Route: PO, Drug form: TAB, BID, Start date: 02/12/12 10:30:00, Duration: 30 day, Stop date: 03/13/12 9:00:00 PO No Longer Active [facility] 02/01 [facility] Robaxin 750 mg, 1 tab, Route: PO, Drug form: TAB, TID, Start date: 02/12/12 10:20:00, Duration: 30 day, Stop date: 03/13/12 9:00:[address] [facility] 02/01 [facility] acetaminophen-hydrocodone 325 mg-5 mg oral tablet 1 tab, Route: PO, Drug Form: TAB, Q6H, PRN Pain, Start date: 02/12/12 10:17:00, Duration: 30 day, Stop date: 03/13/12 10:16:[address] [facility] 02/12/2012 [facility] morphine Sulfate 4 mg, 0.8 mL, Route: IV, Drug form: INJ, Q4H, PRN Pain, Start date: 02/11/12 20:20:00, Duration: 30 day, Stop date: 03/12/12 20:19:[address] [facility] 02/12/2012 [facility] Rocephin 1 g/ NS (NaCl 0.9%) 50 mL IV solution 1 gm, Route: IVPB, Drug form: PDR/INJ, ONCE, Priority: STAT, Start date: 02/11/12 16:49:00, Stop date: 02/11/12 16:49:00 IVPB No Longer Active [facility] 02/11/2012 [facility] Valium 5 mg, 1 mL, Route: IVP, Drug form: INJ, ONCE, Priority: STAT, Start date: 02/11/12 15:57:00, Stop date: 02/11/12 15:57:00 IVP No Longer Active Yoder 02/10 [facility] Sodium Chloride 0.9% (Bolus) IV 1,000 mL 1,000 mL, Rate: 1,000 ml/hr, Infuse over: 1 hr, Route: IV, Dosing Weight 61.364 kg, Total Volume: 1,000, Bolus Dose, Priority: STAT, Start date: 02/11/12 15:57:00, Duration: 1 doses or times, Stop date: 02/11/12 16:56:00 IV No Longer Active Yoder 02/11/2012 [facility] Sodium Chloride 0.9% IV 250 mL , Route: IVPB, Start date: 02/11/12 14:30:00, Duration: 30 day, Stop date: 03/12/12 14:29:00, PRN Line Flush IVPB No Longer Active Hoberman 02/11/2012 [facility] BD Normal Saline Flush 10 mL, Route: IVP, Drug Form: INJ, PRN, PRN Line Flush, Start date: 02/11/12 14:30:00, Duration: 30 day, Stop date: 03/12/12 14:29:00 IVP No Longer Active Hoberman 02/11/2012 [facility] morphine Sulfate 5 mg, 1 mL, R oute: IVP, Drug form: INJ, ONCE, Priority: STAT, Start date: 02/11/12 14:27:00, Stop date: 02/11/12 14:27:00 IVP No Longer Active Yoder 02/11/2012 [facility] Xanax Substitution Allowed Active 02/11/2012 [facility] Soma Substitution Allowed Active 02/11/2012 [facility] Lortab 10/500 oral tablet Subs titution Allowed, Soft Stop Active 02/11/2012 [facility] Vibramycin 100 mg, 1 cap, Rout e: PO, Drug form: CAP, Q12H, Start date: 01/04/12 9:00:00, Duration: 30 day, Stop date: 02/02/12 21:00:00 PO No Longer Active Arvind 01/04/2012 [facility] Levaquin 500 mg, 2 tab, Route: PO, Drug form: TAB, Daily, Start date: 01/04/12 9:00:00, Duration: 30 day, Stop date: 02/02/12 9:00:00 PO No Longer Active Arvind 01/04/2012 [facility] albuterol 2.49 mg, 3 mL, Route : NEB, Drug form: SOLN, RQ8H, Start date: 01/04/12 7:00:00, Duration: 30 day, Stop date: 02/02/12 23:00:00 NEB No Longer Active Arvind 01/04/2012 [facility] Zofran 4 mg, 2 mL, Route: IV, Drug form: INJ, Q8H, PRN Nausea & Vomiting, Start date: 01/04/12 3:32:00, Duration: 30 day, Stop date: 02/03/12 3:31:00 IV No Longer Active Arvind 01/04/2012 [facility] Tylenol 650 mg, 2 tab, Route: PO, Drug form: TAB, Q4H, PRN Fever, Start date: 01/04/12 3:31:00, Duration: 30 day, Stop date: 02/03/12 3:30:00 PO No Longer Active Arvind 01/04/2012 [facility] Xanax 1 mg, 1 tab, Route: PO, Drug form: TAB, Q12H, PRN Agitation, Start date: 01/04/12 3:30:00, Duration: 30 day, Stop date: 02/03/12 3:29:00 PO No Longer Active Arvind 01/04/2012 [facility] tramadol 50 mg oral tablet 50 mg, 1 tab, Route: PO, Drug form: TAB, Q8H, PRN Pain, Start date: 01/04/12 3:28:00, Duration: 30 day, Stop date: 02/03/12 3:27:00 PO No Longer Active Arvind 01/04/2012 [facility] Zithromax 500 mg, Route: IVPB, Q24H, Start date: 01/03/12 21:00:00, Duration: 30 day, Stop date: 02/01/12 21:00:00 IVPB No Longer Active Ambrosio 01/04/2012 [facility] levofloxacin 500 mg, 100 mL, R oute: IVPB, Drug form: INJ, Q24H, for CrCl >49 mL/min, Start date: 01/03/12 20:00:00, Duration: 30 day, Stop date: 02/01/12 20:00:00 IVPB No Longer Active Valente 01/04/2012 [facility] Rocephin 1 gm, Route: IVPB, Q2 4H, Start date: 01/03/12 20:00:00, Duration: 30 day, Stop date: 02/01/12 20:00:00 IVPB No Longer Active Valente 01/04/2012 [facility] Protonix 40 mg, 1 tab, Route: PO, Drug form: ECTAB, Before Dinner, Start date: 01/03/12 16:30:00, Duration: 30 day, Stop date: 02/01/12 16:30:00 PO No Longer Active Arvind 01/03/2012 [facility] Levaquin 500 mg oral tablet 50 0 mg, 1 tab, PO, Q24H, 10 tab, Substitution Allowed PO Active Arvind 01/03/2012 [facility] Floranex 1 tab, Route: PO, Arden g Form: TAB, BID, Start date: 01/03/12 9:00:00, Duration: 30 day, Stop date: 02/01/12 17:00:00 PO No Longer Active Arvind 08/2011 [facility] Questran Light 4 gm, 1 pkt, [place]: PO, Drug form: PDR/REC, BID, Start date: 01/03/12 9:00:00, Duration: 30 day, Stop date: 02/01/12 17:00:00 PO No Longer Active Arvind 01/03/2012 [facility] Dilaudid 0.5 mg, 0.25 mL, Rout e: IV, Drug form: INJ, Q4H, PRN Pain, Start date: 01/02/12 23:24:00, Duration: 30 day, Stop date: 02/01/12 23:23:00 IV No Longer Active Arvind 01/03/2012 [facility] BD Normal Saline Flush 10 ml, Route: IVP, Drug Form: INJ, PRN, PRN Line Flush, Start date: 01/02/12 23:14:00, Duration: 30 day, Stop date: 02/01/12 23:13:00 IVP No Longer Active Valente 01/03/2012 [facility] naloxone 0.04 mg, 0.1 mL, Rout e: IVP, Drug form: INJ, Q2MIN, PRN Narcotic Reversal, Start date: 01/02/12 23:14:00, Duration: 30 day, Stop date: 02/01/12 23:13:00 IVP No Longer Active Arvind 01/03/2012 [facility] Benadryl 12.5 mg, 0.25 mL, Rou te: IV, Drug form: INJ, Q6H, PRN Itching, Start date: 01/02/12 23:13:00, Duration: 30 day, Stop date: 02/01/12 23:12:00 IV No Longer Active Arvind 01/03/2012 [facility] Xanax 2 mg, 2 tab, Route: PO, Drug form: TAB, BID, PRN as needed for anxiety, Start date: 01/02/12 23:10:00, Duration: 30 day, Stop date: 02/01/12 23:09:00 PO No Longer Active Arvind 01/03/2012 [facility] acetaminophen-hydrocodone 325 mg-10 mg oral tablet 1 tab, Route: PO, Drug Form: TAB, Q6H, PRN Pain, Start date: 01/02/12 23:09:00, Duration: 30 day, Stop date: 02/01/12 23:08:00 PO No Longer Active Arvind 01/03/2012 [facility] levofloxacin 500 mg, 100 mL, R oute: IVPB, Drug form: INJ, [id number], for CrCl >49 mL/min, Start date: 01/02/12 20:00:00, Duration: 30 day, Stop date: 01/31/12 20:00:00 IVPB No Longer Active Valente 01/03/2012 [facility] Protonix 40 mg, 1 tab, Route: PO, Drug form: ECTAB, Before Dinner, Start date: 01/02/12 16:30:00, Duration: 30 day, Stop date: 01/31/12 16:30:00 PO No Longer Active Arvind 01/02/2012 [facility] lactobacillus acidophilus and bulgaricus Route: PO, Drug Form: TAB, BID, Start date: 01/02/12 9:00:00, Duration: 30 day, Stop date: 01/31/12 17:00:00 PO No Longer Active Arvind 01/02/2012 [facility] Prevacid 30 mg, Route: PO, Arden g form: DRC, Daily, Start date: 01/02/12 9:00:00, Duration: 30 day, Stop date: 01/31/12 9:00:00 PO No Longer Active Arvind [facility] cholestyramine 4 gm, 1 pkt, [place]: PO, Drug form: PDR/REC, BID, Start date: 01/02/12 9:00:00, Duration: 30 day, Stop date: 01/31/12 17:00:00 PO No Longer Active Arvind 01/02/2012 [facility] Sodium Chloride 0.9% IV 25 mL, Route: IV, Start date: 01/02/12 7:47:00, Duration: 30 day, Stop date: 02/01/12 7:46:00, PRN Line Flush IV No Longer Active Arvind [facility] Dilaudid 0.5 mg, 0.25 mL, Rout e: IV, Drug form: INJ, Q4H, PRN Pain, Start date: 01/01/12 22:55:00, Stop date: 01/31/12 22:54:00 IV No Longer Active Arvind [facility] Xanax 2 mg oral tablet 2 mg, 2 tab, Route: PO, Drug form: TAB, BID, PRN as needed for anxiety, Start date: 01/01/12 22:37:00, Duration: 30 day, Stop date: 01/31/12 22:36:00 PO No Longer Active Arvind 01/02/2012 [facility] acetaminophen-hydrocodone 325 mg-10 mg oral tablet 1 tab, Route: PO, Drug Form: TAB, Q6H, PRN Pain, Start date: 01/01/12 22:37:00, Duration: 30 day, Stop date: 01/31/12 22:36:00 PO No Longer Active Arvind 01/02/2012 [facility] Benadryl 12.5 mg, 0.25 mL, Rou te: IV, Drug form: INJ, Q6H, PRN Itching, Start date: 01/01/12 21:18:00, Duration: 30 day, Stop date: 01/31/12 21:17:00 IV No Longer Active Arvind 01/02/2012 [facility] naloxone 0.04 mg, 0.1 mL, Rout e: IVP, Drug form: INJ, Q2MIN, PRN Narcotic Reversal, Start date: 01/01/12 21:10:00, Duration: 30 day, Stop date: 01/31/12 21:09:00 IVP No Longer Active Arvind 01/02/2012 [facility] nalbuphine 2 mg, Route: IVP, Q 2H, PRN Itching, Start date: 01/01/12 21:10:00, Duration: 5 doses or times, Stop date: Limited # of times IVP No Longer Active Arvind 01/02/2012 [facility] azithromycin 500 mg, Route: IV PB, [id number], Start date: 01/01/12 21:00:00, Duration: 30 day, Stop date: 01/30/12 21:00:00 IVPB No Longer Active Valente 01/02/2012 [facility] ceftriaxone 1 gm, Route: IVPB, [id number], Start date: 01/01/12 21:00:00, Duration: 30 day, Stop date: 01/30/12 21:00:00 IVPB No Longer Active Valente 01/02/2012 [facility] levofloxacin 500 mg, 100 mL, R oute: IVPB, Drug form: INJ, ONCE, Priority: STAT, Start date: 01/01/12 18:34:00, Stop date: 01/01/12 18:34:00 IVPB No Longer Active Ambrosio 01/01/2012 [facility] acetaminophen-hydrocodone 325 mg-5 mg oral tablet 1 tab, Route: PO, Drug Form: TAB, ONCE, STAT, Start date: 01/01/12 12:37:00, Stop date: 01/01/12 12:37:00 PO No Longer Active Ambrosio 01/01/2012 [facility] Saline Flush 0.9% 10 ml, Route : IVP, Drug Form: INJ, PRN, PRN Line Flush, Start date: 01/01/12 12:34:00, Duration: 30 day, Stop date: 01/31/12 12:33:00 IVP No Longer Active Ambrosio 01/01/2012 [facility] Dilaudid 1 mg, 0.5 mL, Route: IV, Drug form: INJ, ONCE, Start date: 12/27/11 15:12:00, Stop date: 12/27/11 15:12:00 IV No Longer Active Cameron 12/27/2011 [facility] Demerol HCl 12.5 mg, 0.25 mL, Route: IVP, Drug form: INJ, ONCE, Start date: 12/27/11 14:48:00, Stop date: 12/27/11 14:48:00 IVP No Longer Active [facility] ondansetron 4 mg, 2 mL, Route: IVP, Drug form: INJ, ONCE, PRN Nausea & Vomiting, Start date: 12/27/11 14:32:00 IVP No Longer Active [facility] 12/27/2011 [facility] midazolam 2 mg, 2 mL, Route: I [employer], Drug form: INJ, Q5Min, PRN Anxiety, Start date: 12/27/11 14:32:00, Duration: 2 doses or times, Stop date: Limited # of times IVP No Longer Active [facility] 12/27/2011 [facility] promethazine 6.25 mg, 0.25 mL, Route: IVPB, ONCE, PRN Nausea & Vomiting, Start date: 12/27/11 14:32:00 IVPB No Longer Active [facility] 12/27/2011 [facility] naloxone 0.04 mg, 0.1 mL, Rout e: IVP, Drug form: INJ, Q2MIN, PRN Narcotic Reversal, Start date: 12/27/11 14:32:00, Duration: 8 doses or times, Stop date: Limited # of times IVP No Longer Active [facility] 12/27/2011 [facility] meperidine 12.5 mg, 0.25 mL, R oute: IVP, Drug form: INJ, Q30Min, PRN Other -See Comment, For shivering, Start date: 12/27/11 14:32:00, Duration: 2 doses or times, Stop date: Limited # of times IVP No Longer Active [facility] 12/27/2011 [facility] flumazenil 0.2 mg, 2 mL, Route : IVP, Drug form: INJ, PRN, PRN Benzodiazepine Reversal, Initial dose, Start date: 12/27/11 14:32:00, Duration: 30 day, Stop date: 01/26/12 14:31:00 IVP No Longer Active [facility] 12/27/2011 [facility] naloxone 0.04 mg, 0.1 mL, Rout e: IVP, Drug form: INJ, Q2MIN, PRN Narcotic Reversal, Start date: 12/27/11 14:25:00, Duration: 8 doses or times, Stop date: Limited # of times IVP No Longer Active [facility] 12/27/2011 [facility] ondansetron 4 mg, 2 mL, Route: IVP, Drug form: INJ, ONCE, PRN Nausea & Vomiting, Start date: 12/27/11 14:25:00 IVP No Longer Active [facility] 12/27/2011 [facility] flumazenil 0.2 mg, 2 mL, Route : IVP, Drug form: INJ, PRN, PRN Benzodiazepine Reversal, Initial dose, Start date: 12/27/11 14:25:00, Duration: 30 day, Stop date: 01/26/12 14:24:00 IVP No Longer Active [facility] 12/27/2011 [facility] meperidine 12.5 mg, 0.25 mL, R oute: IVP, Drug form: INJ, Q30Min, PRN Other -See Comment, For shivering, Start date: 12/27/11 14:25:00, Duration: 2 doses or times, Stop date: Limited # of times IVP No Longer Active [facility] 12/27/2011 [facility] Ditropan XL 15 mg, 3 tab, Rout e: PO, Drug form: ERTAB, Daily, Start date: 12/27/11 9:00:00, Duration: 30 day, Stop date: 01/25/12 9:00:00 PO No Longer Active Garcia 12/27/2011 [facility] Diflucan 200 mg, 2 tab, Route: PO, Drug form: TAB, Daily, Start date: 12/26/11 9:00:00, Duration: 30 day, Stop date: 01/24/12 9:00:00 PO No Longer Active Arvind 12/26/2011 [facility] Maxipime 1 gm, Route: IVPB, Q1 2H, Start date: 12/25/11 20:00:00, Duration: 30 day, Stop date: 01/24/12 8:00:00 IVPB No Longer Active Arvind 12/26/2011 [facility] Phenergan 12.5 mg, 0.5 mL, Rou te: IVPB, Q4H, PRN Nausea & Vomiting, Start date: 12/24/11 19:08:00, Stop date: 01/23/12 19:07:00 IVPB No Longer Active Arvind [facility] Dilaudid 1 mg, 0.5 mL, Route: IV, Drug form: INJ, Q3H, PRN Pain, Start date: 12/24/11 13:47:00, Duration: 30 day, Stop date: 01/23/12 13:46:00 IV No Longer Active Arvind 12/24/2011 [facility] Prevacid 30 mg, Route: PO, Arden g form: DRC, Daily, Start date: 12/24/11 9:00:00, Duration: 30 day, Stop date: 01/22/12 9:00:00 PO No Longer Active Arvind [facility] cholestyramine 4 gm, 1 pkt, [place]: PO, Drug form: PDR/REC, Daily, Start date: 12/24/11 9:00:00, Duration: 30 day, Stop date: 01/22/12 9:00:00 PO No Longer Active Arvind 12/24/2011 [facility] lactobacillus acidophilus and bulgaricus Route: PO, Drug Form: TAB, BID, Start date: 12/23/11 17:00:00, Duration: 30 day, Stop date: 01/22/12 9:00:00 PO No Longer Active Arvind 12/23/2011 [facility] Protonix 40 mg, 1 tab, Route: PO, Drug form: ECTAB, Before Dinner, Start date: 12/23/11 16:30:00, Duration: 30 day, Stop date: 01/21/12 16:30:00 PO No Longer Active Arvind 12/23/2011 [facility] Flagyl 500 mg, 1 tab, Route: P O, Drug form: TAB, [id number], Start date: 12/23/11 12:00:00, Duration: 30 day, Stop date: 01/22/12 4:00:00 PO No Longer Active Arvind [facility] Diflucan 200 mg, 100 mL, Route : IVPB, Drug form: INJ, [id number], Start date: 12/23/11 12:00:00, Duration: 30 day, Stop date: 01/21/12 12:00:00 IVPB No Longer Active Arvind 12/23/2011 [facility] Xanax 2 mg oral tablet 2 mg, 2 tab, Route: PO, Drug form: TAB, BID, PRN as needed for anxiety, Start date: 12/23/11 11:05:00, Duration: 30 day, Stop date: 01/22/12 11:04:00 PO No Longer Active Arvind 12/23/2011 [facility] Boxford 10/325 oral tablet 1 tab , Route: PO, Drug Form: TAB, Q4H, PRN Pain, Start date: 12/23/11 11:05:00, Duration: 30 day, Stop date: 01/22/12 11:04:00 PO No Longer Active Arvind 12/23/2011 [facility] Zofran 4 mg, 2 mL, Route: IVP, Drug form: INJ, Q8H, PRN Nausea, Start date: 12/23/11 11:03:00, Duration: 30 day, Stop date: 01/22/12 11:02:00 IVP No Longer Active Arvind 12/23/2011 [facility] morphine Sulfate 2 mg, 1 mL, R oute: IV, Drug form: INJ, Q3H, PRN Pain, Start date: 12/23/11 9:41:00, Duration: 30 day, Stop date: 01/22/12 9:40:00 IV No Longer Active Arvind 12/23/2011 [facility] Merrem 500 mg, Route: IV, Q8H, Start date: 12/23/11 9:00:00, Duration: 30 day, Stop date: 01/22/12 1:00:00 IV No Longer Active Arvind 12/23/2011 [facility] Sodium Chloride 0.9% IV 1,000 mL 1,000 mL 1,000 mL, Rate: 75 ml/hr, Infuse over: 13.3 hr, Route: IV, Dosing Weight 56.818 kg, Total Volume: 1,000, Start date: 12/23/11 1:17:00, Duration: 30 day, Stop date: 01/22/12 1:16:00 IV No Longer Active Arvind 12/23/2011 [facility] Saline Flush 0.9% 10 ml, Route : IVP, Drug Form: INJ, PRN, PRN Line Flush, Start date: 12/23/11 1:17:00, Duration: 30 day, Stop date: 01/22/12 1:16:00 IVP No Longer Active Arvind 12/23/2011 [facility] Sodium Chloride 0.9% (Bolus) IV 1,000 mL 1,000 mL, Rate: 1,000 ml/hr, Infuse over: 1 hr, Route: IV, Dosing Weight 56.818 kg, Total Volume: 1,000, Bolus dose, Priority: STAT, Start date: 12/22/11 21:46:00, Duration: 1 doses or times, Stop date: 12/22/11 22:45:00 IV No Longer Active Szema 12/23/2011 [facility] Saline Flush 0.9% 5 ml, Route: IVP, Drug Form: INJ, PRN, PRN Line Flush, Start date: 12/22/11 21:46:00, Duration: 24 hr, Stop date: 12/23/11 21:45:00 IVP No Longer Active [facility] 12/23/2011 [facility] famotidine 20 mg, 2 mL, Route: IVP, Drug form: INJ, ONCE, Priority: STAT, Start date: 12/22/11 21:46:00, Stop date: 12/22/11 21:46:00 IVP No Longer Active [facility] 12/23/2011 [facility] ondansetron 4 mg, 2 mL, Route: IVP, Drug form: INJ, ONCE, Priority: STAT, Start date: 12/22/11 21:46:00, Stop date: 12/22/11 21:46:00 IVP No Longer Active [facility] 12/23/2011 [facility] morphine Sulfate 4 mg, 1 mL, R oute: IVP, Drug form: INJ, ONCE, Priority: STAT, Start date: 12/22/11 21:46:00, Stop date: 12/22/11 21:46:00 IVP No Longer Active [facility] 12/23/2011 [facility] Prevacid 30 mg oral delayed release capsule 30 mg, 1 cap, PO, Daily, 30 cap, 1, 1, Substitution Allowed PO Active Watson 12/09/2011 [facility] Bactrim DS oral tablet 1 tab, PO, BID, 20 tab, Substitution Allowed, Maintenance, TAB PO Active Priscila kh 12/09/2011 [facility] Floranex oral tablet 1, PO, BI D, 60 tab, Substitution Allowed, Maintenance, TAB PO Active Watson 12/09/2011 [facility] Questran 4 g/9 g oral powder 1 Pack, PO, BID, 60 ea, 1, 1, Substitution Allowed, PDR/REC PO Active [facility] 12/09/2011 [facility] Flagyl 500 mg oral tablet 500 mg, 1 tab, PO, Q8H, 30 tab, 1, 1, Substitution Allowed, TAB PO Active [facility] 12/09/2011 [facility] Xanax 2 mg oral tablet 2 mg, 1 tab, PO, BID, PRN, 15 tab, | Anxiety, Substitution Allowed, TAB PO Active [facility] 12/09/2011 [facility] Lortab 10/500 oral tablet 1 ta b, PO, Q6H, PRN, 30 tab, 0, 0, | as needed for pain, Substitution Allowed, Maintenance, TAB PO Active [facility] 12/09/2011 [facility] Bactrim DS 1 tab, Route: PO, D rug Form: TAB, BID, Start date: 12/06/11 17:00:00, Duration: 14 day, Stop date: 12/20/11 9:00:00 PO No Longer Active [facility] 11/2011 [facility] Diflucan 100 mg, 1 tab, Route: PO, Drug form: TAB, [id number], Start date: 12/06/11 15:00:00, Duration: 3 day, Stop date: 12/08/11 15:00:00 PO No Longer Active [facility] 12/06/2011 [facility] Lovenox 40 mg, 0.4 mL, Route: SUB-Q, Drug form: INJ, [id number], Start date: 12/06/11 14:15:00, Duration: 30 day, Stop date: 01/04/12 14:15:00 SUB-Q No Longer Active [facility] 12/06/2011 [facility] D5NS 1,000 mL 1,000 mL, Rate: 75 ml/hr, Infuse over: 13.3 hr, Route: IV, Dosing Weight 56.818 kg, Total Volume: 1,000, Start date: 12/06/11 14:14:00, Duration: 30 day, Stop date: 01/05/12 14:13:00 IV No Longer Active [facility] 12/06/2011 [facility] Questran 4 gm, 1 pkt, Route: P O, Drug form: PDR/REC, BID, Start date: 12/05/11 17:00:00, Duration: 30 day, Stop date: 01/04/12 9:00:00 PO No Longer Active [facility] 12/05/2011 [facility] Soma 350 mg, Route: PO, Drug f orm: TAB, TID, Start date: 12/05/11 17:00:00, Duration: 30 day, Stop date: 01/04/12 13:00:00 PO No Longer Active [facility] 12/05/2011 [facility] Zofran 4 mg, 2 mL, Route: IVP, Drug form: INJ, Q6H, PRN Nausea, Start date: 12/05/11 14:26:00, Duration: 30 day, Stop date: 01/04/12 14:25:00 IVP No Longer Active [facility] 12/05/2011 [facility] Box[place] 10/325 oral tablet 2 tab , Route: PO, Drug Form: TAB, Q4H, PRN Pain, Start date: 12/05/11 14:25:00, Duration: 30 day, Stop date: 01/04/12 14:24:00 PO No Longer Active [facility] 12/05/2011 [facility] Xanax 2 mg oral tablet 2 mg, 2 tab, Route: PO, Drug form: TAB, BID, PRN as needed for anxiety, Start date: 12/05/11 14:13:00, Duration: 30 day, Stop date: 01/04/12 14:12:00 PO No Longer Active [facility] 12/05/2011 [facility] lactobacillus acidophilus 1 ca p, Route: PO, Drug Form: CAP, BID, Start date: 12/05/11 9:00:00, Duration: 30 day, Stop date: 01/03/12 17:00:00 PO No Longer Active [facility] 12/05/2011 [facility] Cipro I.V. 400 mg/200 mL intravenous solution 400 mg, 200 mL, Route: IV, Drug form: INJ, [id number], Start date: 12/05/11 8:00:00, Duration: 30 day, Stop date: 01/03/12 20:00:00 IV No Longer Active [facility] 12/05/2011 [facility] ondansetron 4 mg oral tablet, disintegrating 4 mg, 1 tab, Route: PO, Drug form: TABDIS, TID, PRN as needed for nausea/vomiting, Start date: 12/05/11 7:35:00, Duration: 30 day, Stop date: 01/04/12 7:34:00 PO No Longer Active [facility] 10/2011 [facility] Dilaudid 1 mg, 0.5 mL, Route: IV, Drug form: INJ, Q8H, PRN For Pain, Start date: 12/05/11 7:35:00, Stop date: 01/04/12 7:34:00 IV No Longer Active Antonio-Ramila 12/05/2011 [facility] Augmentin 875 mg oral tablet 8 75 mg, PO, BID, 20 tab, Substitution Allowed, Maintenance PO No Longer Active 12/05/2011 [facility] Xanax 2 mg oral tablet 2 mg, 1 tab, PO, BID, PRN, Anxiety, Substitution Allowed PO No Longer Active [facility] 12/05/2011 [facility] Soma 350 mg oral tablet 350 mg , 1 tab, PO, TID, 30 tab, Substitution Allowed, TAB PO No Longer Active [facility] 12/05/2011 [facility] Lortab 10/500 oral tablet 1 ta b, PO, Q6H, PRN, as needed for pain, Substitution Allowed, Maintenance PO No Longer Active [facility] 12/05/2011 [facility] Sodium Chloride 0.9% IV 25 mL, Route: IV, Start date: 12/05/11 0:19:00, Duration: 30 day, Stop date: 01/04/12 0:18:00, PRN Line Flush IV No Longer Active [facility] 10/2011 [facility] BD Normal Saline Flush 10 mL, Route: IV, Drug Form: INJ, PRN, PRN Line Flush, Start date: 12/05/11 0:19:00, Duration: 30 day, Stop date: 01/04/12 0:18:00 IV No Longer Active [facility] 12/05/2011 [facility] Phenergan 25 mg, 1 mL, Route: IVPB, Q6H, PRN Nausea & Vomiting, Start date: 12/05/11 0:18:00, Duration: 30 day, Stop date: 01/04/12 0:17:00 IVPB No Longer Active [facility] 12/05/2011 [facility] Zofran 4 mg, 2 mL, Route: IVP, Drug form: INJ, Q8H, PRN Nausea & Vomiting, Start date: 12/05/11 0:18:00, Duration: 30 day, Stop date: 01/04/12 0:17:00 IVP No Longer Active [facility] 12/05/2011 [facility] Flagyl 500 mg, 1 tab, Route: P O, Drug form: TAB, Q8H, Start date: 12/05/11 0:00:00, Duration: 30 day, Stop date: 01/03/12 16:00:00 PO No Longer Active [facility] 10/2011 [facility] meropenem 1,000 mg, Route: IV, [id number], Start date: 12/04/11 23:00:00, Duration: 30 day, Stop date: 01/03/12 15:00:00 IV No Longer Active [facility] 12/05/2011 [facility] Floranex 1 tab, Route: PO, [place] g Form: TAB, BID, Start date: 12/04/11 22:51:00, Duration: 30 day, Stop date: 01/03/12 17:00:00 PO No Longer Active [facility] 10/2011 [facility] NS 1,000 mL 1,000 mL, Rate: 10 0 ml/hr, Infuse over: 10 hr, Route: IV, Dosing Weight 56.818 kg, Total Volume: 1,000, Start date: 12/04/11 21:20:00, Duration: 30 day, Stop date: 01/03/12 21:19:00 IV No Longer Active [facility] 12/05/2011 [facility] Tylenol 650 mg, 2 tab, Route: PO, Drug form: TAB, Q4H, PRN Pain, Start date: 12/04/11 21:20:00, Duration: 30 day, Stop date: 01/03/12 21:19:00 PO No Longer Active [facility] 12/05/2011 [facility] [place] 10/325 oral tablet 1 tab , Route: PO, Drug Form: TAB, Q4H, PRN Pain, Start date: 12/04/11 21:20:00, Duration: 30 day, Stop date: 01/03/12 21:19:00 PO No Longer Active [facility] 12/05/2011 [facility] meropenem 1,000 mg, Route: IV, ONCE, Start date: 12/04/11 21:12:00, Stop date: 12/04/11 21:12:00 IV No Longer Active [facility] 12/05/2011 [facility] ondansetron 4 mg oral tablet, disintegrating 1 tab, Route: PO, ONCE, Start date: 12/04/11 20:59:00, Stop date: 12/04/11 20:59:00 PO No Longer Active Shirley 2011 [facility] ciprofloxacin 400 mg, 200 mL, Route: IVPB, Drug form: INJ, ONCE, Priority: STAT, Start date: 12/04/11 19:55:00, Stop date: 12/04/11 19:55:00 IVPB No Longer Active Shirley 12/05/2011 [facility] NS (Bolus) IV 1,000 mL 1,000 m L, Rate: 1,000 ml/hr, Infuse over: 1 hr, Route: IV, Dosing Weight 56.818 kg, Total Volume: 1,000, Start date: 12/04/11 19:50:00, Duration: 1 doses or times, Stop date: 12/04/11 20:49:00 IV No Longer Active Shirley 12/05/2011 [facility] Cipro I.V. 400 mg/200 mL intravenous solution 400 mg, Route: IV, ONCE, Start date: 12/04/11 19:34:00, Stop date: 12/04/11 19:34:00 IV No Longer Active Shirley 2011 [facility] ondansetron 4 mg oral tablet, disintegrating 1 tab, Route: PO, ONCE, Start date: 12/04/11 18:42:00, Stop date: 12/04/11 18:42:00 PO No Longer Active Shirley 2011 [facility] Dilaudid 1 mg, Route: IV, ONCE , Start date: 12/04/11 18:42:00, Stop date: 12/04/11 18:42:00 IV No Longer Active Shirley 12/04/2011 [facility] ondansetron 4 mg oral tablet, disintegrating 1 tab, Route: PO, ONCE, Start date: 12/04/11 18:39:00, Stop date: 12/04/11 18:39:00 PO No Longer Active Shirley 2011 [facility] Dilaudid 1 mg, Route: IV, ONCE , Start date: 12/04/11 18:39:00, Stop date: 12/04/11 18:39:00 IV No Longer Active Shirley 12/04/2011 [facility] Flagyl 500 mg oral tablet 500 mg, 1 tab, PO, Q8H, 30 tab, Substitution Allowed PO No Longer Active Watson 12/04/2011 [facility] sulfamethoxazole-trimethoprim 800 mg-160 mg oral table t 1 tab, Route: PO, Drug Form: TAB, Q12H, Start date: 11/11/11 21:00:00, Duration: 10 day, Stop date: 11/21/11 9:00:00 PO No Longer Active Liseth 11/12/2011 [facility] Invanz 1 gm, Route: IVPB, Q24H , Start date: 11/10/11 9:00:00, Duration: 30 day, Stop date: 12/09/11 9:00:00 IVPB No Longer Active Ekaney 11/10/2011 [facility] lidocaine topical 5% film (patch) 1 patch, Route: TOP, Daily, Drug form: FILM, Start date: 11/08/11 15:58:00, Duration: 30 day, Stop date: 12/08/11 9:00:00 TOP No Longer Active Liseth 11/08/2011 [facility] Celexa 20 mg, 1 tab, Route: PO , Drug form: TAB, QAM, Start date: 11/08/11 9:00:00, Duration: 30 day, Stop date: 12/07/11 9:00:00 PO No Longer Active Liseth 012 [facility] Robaxin 1,000 mg, 10 mL, Route : IVPB, Daily, Start date: 11/08/11 9:00:00, Duration: 3 day, Stop date: 11/10/11 9:00:00 IVPB No Longer Active Liseth 11/08/2011 [facility] Cipro 500 mg, 1 tab, Route: PO , Drug form: TAB, Daily, Start date: 11/08/11 9:00:00, Duration: 30 day, Stop date: 12/07/11 9:00:00 PO No Longer Active Liseth 012 [facility] Norvasc 5 mg, 1 tab, Route: PO , Drug form: TAB, Daily, Start date: 11/08/11 9:00:00, Duration: 30 day, Stop date: 12/07/11 9:00:00 PO No Longer Active Liseth 012 [facility] Xanax 2 mg, 2 tab, Route: PO, Drug form: TAB, BID, Start date: 11/08/11 9:00:00, Duration: 30 day, Stop date: 12/07/11 17:00:00 PO No Longer Active Liseth 012 [facility] Rocephin 1 gm, Route: IVPB, Q2 4H, Start date: 11/08/11 1:00:00, Duration: 30 day, Stop date: 12/07/11 1:00:00 IVPB No Longer Active Asher 11/08/2011 [facility] ketorolac 30 mg/mL injectable solution 30 mg, 1 mL, Route: IV, Drug form: INJ, Q6H, Start date: 11/08/11 0:00:00, Duration: 48 hr, Stop date: 11/09/11 18:00:00 IV No Longer Active Liseth 11/08/2011 [facility] Duricef 500 mg, 1 cap, Route: PO, Drug form: CAP, Q12H, Start date: 11/07/11 21:00:00, Duration: 30 day, Stop date: 12/07/11 9:00:00 PO No Longer Active Liseth 012 [facility] Diflucan 200 mg, 2 tab, Route: PO, Drug form: TAB, Daily, Start date: 11/07/11 20:52:00, Duration: 30 day, Stop date: 12/07/11 9:00:00 PO No Longer Active Liseth 11/08/2011 [facility] loperamide 2 mg, 1 cap, Route: PO, Drug form: CAP, Q6H, PRN Diarrhea, Start date: 11/07/11 20:08:00, Duration: 30 day, Stop date: 12/07/11 20:07:00 PO No Longer Active Liseth 11/08/2011 [facility] tramadol 50 mg oral tablet 100 mg, 2 tab, Route: PO, Drug form: TAB, Q4H, PRN Pain, Start date: 11/07/11 19:44:00, Duration: 30 day, Stop date: 12/07/11 19:43:00 PO No Longer Active Liseth 11/08/2011 [facility] tramadol 50 mg oral tablet 50 mg, 1 tab, Route: PO, Drug form: TAB, Q4H, PRN Pain, Start date: 11/07/11 19:43:00, Duration: 30 day, Stop date: 12/07/11 19:42:00 PO No Longer Active Liseth 11/08/2011 [facility] loperamide 2 mg, 1 cap, Route: PO, Drug form: CAP, ONCE, Start date: 11/07/11 19:09:00, Stop date: 11/07/11 19:09:00 PO No Longer Active Liseth 11/08/2011 [facility] chlordiazepoxide 25 mg oral capsule 50 mg, 2 cap, Route: PO, Drug form: CAP, Q6H, PRN Agitation, Start date: 11/07/11 19:09:00, Duration: 30 day, Stop date: 12/07/11 19:08:00 PO No Longer Active Liseth 11/08/2011 [facility] D5W 1/2NS + KCL 20mEq/L 1000ml (Premix) 1,000 mL 1,000 mL, Rate: 125 ml/hr, Infuse over: 8 hr, Route: IV, Dosing Weight 62 kg, Total Volume: 1,000, Start date: 11/07/11 18:30:00, Duration: 30 day, Stop date: 12/07/11 18:29:00 IV No Longer Active Asher 11/07/2011 [facility] baclofen 10 mg, 1 tab, Route: PO, Drug form: TAB, BID, Start date: 11/07/11 17:00:00, Duration: 30 day, Stop date: 12/07/11 9:00:00 PO No Longer Active Liseth 012 [facility] Zyvox 600 mg, 1 tab, Route: PO , Drug form: TAB, BID, Start date: 11/07/11 17:00:00, Duration: 30 day, Stop date: 12/07/11 9:00:00 PO No Longer Active Liseth 012 [facility] Protonix 40 mg, 1 tab, Route: PO, Drug form: ECTAB, Before Dinner, Start date: 11/07/11 16:30:00, Duration: 30 day, Stop date: 12/06/11 16:30:00 PO No Longer Active Liseth 11/07/2011 [facility] Lovenox 40 mg, 0.4 mL, Route: SUB-Q, Drug form: INJ, [id number], Start date: 11/07/11 15:00:00, Duration: 30 day, Stop date: 12/06/11 15:00:00 SUB-Q No Longer Active Liseth 11/07/2011 [facility] aluminum hydroxide-magnesium hydroxide 2 00 mg-200 mg/5 mL oral suspension 30 mL, Route: PO, Drug Form: SUSP, Q6H, PRN See Nurse's Notes, Start date: 11/07/11 14:34:00, Duration: 30 day, Stop date: 12/07/11 14:33:00 PO No Longer Active Liseth 012 [facility] D5W 1/2NS + KCL 20mEq/L 1000ml (Premix) 1,000 mL 1,000 mL, Rate: 250 ml/hr, Infuse over: 4 hr, Route: IV, Dosing Weight 62 kg, Total Volume: 1,000, Start date: 11/07/11 14:28:00, Duration: 1 doses or times, Stop date: 11/07/11 18:27:00 IV No Longer Active Asher 11/07/2011 [facility] morphine Sulfate 2 mg, 0.4 mL, Route: IV, Drug form: INJ, Q4H, PRN Pain, Start date: 11/07/11 14:25:00, Duration: 30 day, Stop date: 12/07/11 14:24:00 IV No Longer Active Liseth 11/07/2011 [facility] acetaminophen-hydrocodone 325 mg-10 mg oral tablet 1 tab, Route: PO, Drug Form: TAB, Q4H, PRN Pain, Start date: 11/07/11 12:05:00, Duration: 30 day, Stop date: 12/07/11 12:04:00 PO No Longer Active Liseth 11/07/2011 [facility] Questran 4 gm, 1 pkt, Route: P O, Drug form: PDR/REC, Q6H, Start date: 11/07/11 12:00:00, Duration: 30 day, Stop date: 12/07/11 6:00:00 PO No Longer Active Liseth 11/07/2011 [facility] Lopressor 50 mg, 1 tab, Route: PO, Drug form: TAB, BID, Start date: 11/07/11 11:40:00, Duration: 30 day, Stop date: 12/07/11 9:00:00 PO No Longer Active Liseth 012 [facility] Neurontin 300 mg, 1 cap, Route : PO, Drug form: CAP, Daily, Start date: 11/07/11 11:39:00, Duration: 30 day, Stop date: 12/07/11 9:00:00 PO No Longer Active Liseth 11/07/2011 [facility] baclofen 10 mg, 1 tab, Route: PO, Drug form: TAB, Daily, Start date: 11/07/11 11:39:00, Duration: 30 day, Stop date: 12/07/11 9:00:00 PO No Longer Active Liseth 012 [facility] acetaminophen-hydrocodone 325 mg-5 mg oral tablet 1 tab, Route: PO, Drug Form: TAB, Q4H, PRN Pain, Start date: 11/07/11 11:39:00, Duration: 30 day, Stop date: 12/07/11 11:38:00 PO No Longer Active Liseth 11/07/2011 [facility] Xanax 2 mg, 2 tab, Route: PO, Drug form: TAB, BID, Start date: 11/07/11 11:39:00, Duration: 30 day, Stop date: 12/07/11 9:00:00 PO No Longer Active Liseth [facility] Dolophine 40 mg, 4 tab, Route: PO, Drug form: TAB, BID, Start date: 11/07/11 11:39:00, Duration: 30 day, Stop date: 12/07/11 9:00:00 PO No Longer Active Liseth 012 [facility] Zofran 4 mg, 2 mL, Route: IVP, Drug form: INJ, Q4H, PRN Nausea & Vomiting, Start date: 11/07/11 4:36:00, Duration: 30 day, Stop date: 12/07/11 4:35:00 IVP No Longer Active Asher 11/07/2011 [facility] Tylenol 650 mg, 2 tab, Route: PO, Drug form: TAB, Q4H, PRN Pain, Start date: 11/07/11 4:36:00, Duration: 30 day, Stop date: 12/07/11 4:35:00 PO No Longer Active [facility] 11/07/2011 [facility] D5W 1/2NS + KCL 20mEq/L 1000ml (Premix) 1,000 mL 1,000 mL, Rate: 100 ml/hr, Infuse over: 10 hr, Route: IV, Dosing Weight 74.6 kg, Total Volume: 1,000, Start date: 11/07/11 4:35:00, Duration: 30 day, Stop date: 12/07/11 4:34:00 IV No Longer Active Asher 11/07/2011 [facility] Zofran 4 mg, Route: IVP, Drug form: INJ, ONCE, Priority: STAT, Start date: 11/07/11 0:53:00, Stop date: 11/07/11 0:53:00 IVP No Longer Active Bhavesh 11/07/2011 [facility] morphine 5 mg/mL preservative-free injectable solution 5 mg, Route: IV, ONCE, Start date: 11/07/11 0:53:00, Stop date: 11/07/11 0:53:00 IV No Longer Active Bhavesh [facility] Rocephin 1 g/ NS (NaCl 0.9%) 50 mL IV solution 1 gm, Route: IVPB, Drug form: PDR/INJ, ONCE, Priority: STAT, Start date: 11/07/11 0:46:00, Stop date: 11/07/11 0:46:00 IVPB No Longer Active Bhavesh 11/07/2011 [facility] Sodium Chloride 0.9% IV 250 mL , Route: IVPB, Start date: 11/06/11 21:17:00, Duration: 30 day, Stop date: 12/06/11 21:16:00, PRN Line Flush IVPB No Longer Active Ruddy 11/07/2011 [facility] BD Normal Saline Flush 10 mL, Route: IVP, Drug Form: INJ, PRN, PRN Line Flush, Start date: 11/06/11 21:17:00, Duration: 30 day, Stop date: 12/06/11 21:16:00 IVP No Longer Active Fox 11/07/2011 [facility] Saline Flush 0.9% 5 ml, Route: IVP, Drug Form: INJ, PRN, PRN Line Flush, Start date: 11/06/11 21:07:00, Duration: 24 hr, Stop date: 11/07/11 21:06:00 IVP No Longer Active Bhavesh 11/07/2011 [facility] Sodium Chloride 0.9% IV 1,000 mL 1,000 mL, Rate: 125 ml/hr, Infuse over: 8 hr, Route: IV, Dosing Weight 74.6 kg, Total Volume: 1,000, Start date: 11/06/11 21:07:00, Duration: 30 day, Stop date: 12/06/11 21:06:00 IV No Longer Active Bhavesh [facility] ondansetron 4 mg, 2 mL, Route: IVP, Drug form: INJ, ONCE, Priority: STAT, Start date: 11/06/11 21:07:00, Stop date: 11/06/11 21:07:00 IVP No Longer Active Bhavesh 11/07/2011 [facility] Duricef 500 mg, 1 cap, Route: PO, Drug form: CAP, Q12H, Start date: 10/23/11 14:00:00, Duration: 30 day, Stop date: 11/22/11 9:00:00 PO No Longer Active Manly [facility] Cipro 500 mg, 1 tab, Route: PO , Drug form: TAB, Q12H, Start date: 10/23/11 13:33:00, Duration: 30 day, Stop date: 11/22/11 9:00:00 PO No Longer Active Manly [facility] sterile water 2.2 mL, Route: I V, Drug Form: INJ, PRN, PRN See Nurse's Notes, Start date: 10/23/11 13:10:00, Duration: 1 day, Stop date: 10/24/11 13:09:00 IV No Longer Active Jared 10/23/2011 [facility] Activase 2 mg, 2 mL, Route: IV , Drug form: INJ, ONCE, Start date: 10/23/11 13:10:00, Stop date: 10/23/11 13:10:00 IV No Longer Active Jared 10/23/2011 [facility] Robitussin-DM 15 mL, Route: PO , Drug Form: LIQ, Q6H, PRN Cough, Start date: 10/19/11 16:23:00, Duration: 30 day, Stop date: 11/18/11 16:22:00 PO No Longer Active Bishara 10/19/2011 [facility] Norvasc 5 mg, 1 tab, Route: PO , Drug form: TAB, Daily, Start date: 10/19/11 16:00:00, Stop date: 11/17/11 16:00:00 PO No Longer Active Jared 10/19/2011 [facility] Norvasc 5 mg, 1 tab, Route: PO , Drug form: TAB, ONCE, Start date: 10/19/11 12:00:00, Stop date: 10/19/11 12:00:00 PO No Longer Active Cespedes 10/19/2011 [facility] Trandate 5 mg, 1 mL, Route: IV , Drug form: INJ, Q6H, PRN Elevated BP, Start date: 10/19/11 11:49:00, Duration: 30 day, Stop date: 11/18/11 11:48:00 IV No Longer Active [facility] 10/19/2011 [facility] clonidine 0.1 mg oral tablet 0 .1 mg, 1 tab, Route: PO, Drug form: TAB, Q4H, PRN Elevated BP, Start date: 10/19/11 11:47:00, Duration: 30 day, Stop date: 11/18/11 11:46:00 PO No Longer Active [facility] 10/19/2011 [facility] acetaminophen 500 mg, 1 tab, R oute: PO, Drug form: TAB, Q4H, PRN Pain/Fever, Start date: 10/19/11 0:30:00, Duration: 30 day, Stop date: 11/18/11 0:29:00 PO No Longer Active Jared 10/19/2011 [facility] Bactroban 1 appl, Route: TOP, Daily, Drug form: OINT, Start date: 10/18/11 23:00:00, Duration: 30 day, Stop date: 11/17/11 9:00:00 TOP No Longer Active Jared 10/18 [facility] Zyvox 600 mg, 1 tab, Route: PO , Drug form: TAB, [id number], Start date: 10/18/11 14:00:00, Duration: 30 day, Stop date: 11/17/11 2:00:00 PO No Longer Active Jared 10/17 [facility] magnesium sulfate 4 gm, 100 mL , Route: IVPB, Drug form: INJ, ONCE, Start date: 10/18/11 9:41:00, Stop date: 10/18/11 9:41:00 IVPB No Longer Active Jared 10/17 [facility] Norvasc 10 mg, 2 tab, Route: P O, Drug form: TAB, Daily, Start date: 10/18/11 9:41:00, Stop date: 11/17/11 9:00:00 PO No Longer Active Cespedes 10/18/2011 [facility] Detrol LA 4 mg, 1 cap, Route: PO, Drug form: CAP, Daily, Start date: 10/18/11 9:00:00, Duration: 30 day, Stop date: 11/16/11 9:00:00 PO No Longer Active Jared 10/17 [facility] Zyvox 600 mg, 300 mL, Route: I VPB, Drug form: SOLN, [id number], Start date: 10/17/11 14:00:00, Duration: 30 day, Stop date: 11/16/11 2:00:00 IVPB No Longer Active Jared 10/17/2011 [facility] hydromorphone 0.5 mg, Route: I V, ONCE, Start date: 10/17/11 8:36:00, Stop date: 10/17/11 8:36:00 IV No Longer Active Morovis 10/17/2011 [facility] hydromorphone 0.5 mg, Route: I V, ONCE, Start date: 10/17/11 8:35:00, Stop date: 10/17/11 8:35:00 IV No Longer Active Morovis 10/17/2011 [facility] magnesium sulfate 2 gm, 50 mL, Route: IVPB, Drug form: INJ, ONCE, Start date: 10/17/11 8:00:00, Stop date: 10/17/11 8:00:00 IVPB No Longer Active Jared 10/16 [facility] Sodium Chloride 0.9% IV 25 mL, Route: IV, Start date: 10/17/11 7:36:00, Duration: 30 day, Stop date: 11/16/11 7:35:00, PRN Line Flush IV No Longer Active Jared 10/16 [facility] BD Normal Saline Flush 10 mL, Route: IV, Drug Form: INJ, PRN, PRN Line Flush, Start date: 10/17/11 7:36:00, Duration: 30 day, Stop date: 11/16/11 7:35:00 IV No Longer Active [facility] 10/17/2011 [facility] Sodium Chloride 0.45% IV 1,000 mL 1,000 mL, Rate: 40 ml/hr, Infuse over: 25 hr, Route: IV, Dosing Weight 74.6 kg, Total Volume: 1,000, Start date: 10/17/11 7:36:00, Stop date: 11/16/11 7:35:00 IV No Longer Active [facility] 10/17/2011 [facility] Lactated Ringers IV 1,000 mL 1 ,000 mL, Rate: 40 ml/hr, Infuse over: 25 hr, Route: IV, Dosing Weight 74.6 kg, Total Volume: 1,000, Start date: 10/17/11 7:05:00, Duration: 30 day, Stop date: 11/16/11 7:04:00 IV No Longer Active Morovis 012 [facility] Dilaudid 1.5 mg, 0.75 mL, Rout e: IV, Drug form: INJ, Q6H, PRN Pain, Start date: 10/16/11 11:00:00, Duration: 30 day, Stop date: 11/15/11 10:59:00 IV No Longer Active Jared 10/16/2011 [facility] Celexa 40 mg, 2 tab, Route: PO , Drug form: TAB, QAM, Start date: 10/16/11 9:00:00, Duration: 30 day, Stop date: 11/14/11 9:00:00 PO No Longer Active Jared 10/15 [facility] Neurontin 300 mg, 1 cap, Route : PO, Drug form: CAP, Daily, Start date: 10/16/11 9:00:00, Duration: 30 day, Stop date: 11/14/11 9:00:00 PO No Longer Active Jared 10/16/2011 [facility] magnesium sulfate 1 gm, 100 mL , Route: IVPB, Drug form: INJ, ONCE, Start date: 10/16/11 6:52:00, Stop date: 10/16/11 6:52:00 IVPB No Longer Active Cespedes 10/02 [facility] lidocaine 5 mL, Route: S&SWALL OW, Drug form: SOLN, QID- Before Meals, PRN Mouth Pain, Start date: 10/16/11 5:56:00, Duration: 30 day, Stop date: 11/15/11 5:55:00 S&SWALLOW No Longer Active [facility] 10/16/2011 [facility] Phenergan 12.5 mg, 0.5 mL, Rou te: IVPB, Q6H, PRN Nausea, Start date: 10/15/11 21:50:00, Duration: 30 day, Stop date: 11/14/11 21:49:00 IVPB No Longer Active [facility] 10/15 [facility] Zofran 4 mg, 1 tab, Route: PO, Drug form: TAB, Q8H, PRN Nausea, Start date: 10/15/11 21:50:00, Duration: 30 day, Stop date: 11/14/11 21:49:00 PO No Longer Active [facility] 10/16/2011 [facility] Ativan 0.5 mg, 0.25 mL, Route: IVP, Drug form: INJ, Q4H, PRN Agitation, Start date: 10/15/11 21:45:00, Duration: 30 day, Stop date: 11/14/11 21:44:00 IVP No Longer Active [facility] 10/16/2011 [facility] Zosyn 2.25 gm, 1 ea, Route: IV PB, [id number], Start date: 10/15/11 21:00:00, Duration: 30 day, Stop date: 11/14/11 13:00:00 IVPB No Longer Active Ferreira 10/16/2011 [facility] Habitrol 21 mg, 1 patch, Route : TOP, Drug form: ERFILM, Q24H, Start date: 10/15/11 20:00:00, Duration: 30 day, Stop date: 11/13/11 20:00:00 TOP No Longer Active Jared 10/16/2011 [facility] Questran Light 4 gm, 1 pkt, [place]: PO, Drug form: PDR/REC, Q6H, Start date: 10/15/11 18:00:00, Duration: 30 day, Stop date: 11/14/11 12:00:00 PO No Longer Active [facility] 10/15/2011 [facility] Xanax 2 mg, 4 tab, Route: PO, Drug form: TAB, BID, Start date: 10/15/11 17:00:00, Duration: 30 day, Stop date: 11/14/11 9:00:00 PO No Longer Active [facility] 10/14 [facility] baclofen 10 mg, 1 tab, Route: PO, Drug form: TAB, BID, Start date: 10/15/11 17:00:00, Duration: 30 day, Stop date: 11/14/11 9:00:00 PO No Longer Active [facility] 10/14 [facility] Dolophine 40 mg, 4 tab, Route: PO, Drug form: TAB, BID, Start date: 10/15/11 17:00:00, Duration: 30 day, Stop date: 11/14/11 9:00:00 PO No Longer Active [facility] 10/14 [facility] Protonix 40 mg, 1 tab, Route: PO, Drug form: ECTAB, Before Dinner, Start date: 10/15/11 16:30:00, Duration: 30 day, Stop date: 11/13/11 16:30:00 PO No Longer Active [facility] 10/15/2011 [facility] acetaminophen-hydrocodone 325 mg-10 mg oral tablet 1 tab, Route: PO, Drug Form: TAB, Q4H, PRN Pain, Start date: 10/15/11 15:44:00, Duration: 30 day, Stop date: 11/14/11 15:43:00 PO No Longer Active [facility] 10/15/2011 [facility] aluminum hydroxide-magnesium hydroxide 2 00 mg-200 mg/5 mL oral suspension 30 mL, Route: PO, Drug Form: SUSP, Q6H, PRN See Nurse's Notes, Start date: 10/15/11 15:44:00, Duration: 30 day, Stop date: 11/14/11 15:43:00 PO No Longer Active Jared 10/14 [facility] loperamide 4 mg, 2 cap, Route: PO, Drug form: CAP, PRN, PRN Diarrhea, Start date: 10/15/11 15:44:00, Duration: 30 day, Stop date: 11/14/11 15:43:00 PO No Longer Active Jared 10/15/2011 [facility] nitroglycerin 0.4 mg sublingual tablet 0.4 mg, 1 tab, Route: SL, Drug form: TAB, PRN, PRN Chest Pain, Start date: 10/15/11 13:16:00, Duration: 30 day, Stop date: 11/14/11 13:15:00 SL No Longer Active Jared 10/15/2011 [facility] DOPamine 800 mg in D5W Premix IV 800 mg 800 mg, 250 mL, Rate: acls, Route: IV, Total Volume: 250, Start date: 10/15/11 13:16:00, Duration: 30 day, Stop date: 11/14/11 13:15:00, Replace Every: 24 hr IV No Longer Active [facility] 10/15/2011 [facility] atropine 1 mg, 10 mL, Route: I V, Drug form: INJ, PRN, PRN Asystole, Start date: 10/15/11 13:15:00, Duration: 30 day, Stop date: 11/14/11 13:14:00 IV No Longer Active Jared 10/15/2011 [facility] epinephrine 1 mg, 10 mL, Route : IV, Drug form: INJ, PRN, PRN Asystole, Start date: 10/15/11 13:15:00, Duration: 30 day, Stop date: 11/14/11 13:14:00 IV No Longer Active Jared 10/15/2011 [facility] Cordarone 150 mg, 3 mL, Route: IV, PRN, PRN Other -See Comment, Start date: 10/15/11 13:15:00, Duration: 30 day, Stop date: 11/14/11 13:14:00 IV No Longer Active Jared 10/15/2011 [facility] Dextrose 5% with 0.45% NaCl IV 1,000 mL + sodium bicarbonate 8.4% 75 mEq 1,000 mL, Rate: 150 ml/hr, Infuse over: 7.2 hr, Route: IV, Dosing Weight 68.182 kg, Total Volume: 1,075, Start date: 10/15/11 10:00:00, Duration: 30 day, Stop date: 11/14/11 9:59:00 IV No Longer Active Fox 10/15/2011 [facility] Sodium Chloride 0.9% IV 1,000 mL 1,000 mL, Rate: 150 ml/hr, Infuse over: 6.7 hr, Route: IV, Dosing Weight 68.182 kg, Total Volume: 1,000, Start date: 10/15/11 3:30:00, Duration: 30 day, Stop date: 11/14/11 3:29:00 IV No Longer Active [facility] 10/15/2011 [facility] Sodium Chloride 0.9% (Bolus) IV 1000 mL 1,000 mL, Rate: 1,000 ml/hr, Infuse over: 1 hr, Route: IV, kg, Total Volume: 1,000, Bolus Dose, Priority: STAT, Start date: 10/14/11 23:41:00, Duration: 1 doses or times, Stop date: 10/15/11 0:40:00 IV No Longer Active [facility] 10/15/2011 [facility] acetaminophen-hydrocodone 325 mg-5 mg oral tablet 2 tab, Route: PO, Drug Form: TAB, Q4H, PRN Pain, Start date: 09/11/11 11:36:00, Duration: 30 day, Stop date: 10/11/11 11:35:00 PO No Longer Active Jared 09/11/2011 [facility] Dilaudid 0.5 mg, Route: IV, ON CE, Priority: NOW, Start date: 09/11/11 10:18:00, Stop date: 09/11/11 10:18:00 IV No Longer Active Jasonnstechjada 09/11/2011 [facility] Demerol HCl 12.5 mg, Route: IV , ONCE, Start date: 09/11/11 10:18:00, Stop date: 09/11/11 10:18:00 IV No Longer Active Pat 09/11/2011 [facility] acetaminophen-hydrocodone 325 mg-5 mg oral tablet 1 tab, Route: PO, Drug Form: TAB, ONCE, Start date: 09/10/11 2:04:00, Stop date: 09/10/11 2:04:00 PO No Longer Active Aldana 09/10/2011 [facility] Santyl 1 appl, Route: TOP, Aicha ly, Drug form: OINT, Start date: 09/07/11 19:00:00, Duration: 30 day, Stop date: 10/07/11 9:00:00 TOP No Longer Active Jared 09/08 [facility] Zosyn 3.375 gm, Route: IVPB, A BXQ8H, Start date: 09/07/11 16:00:00, Duration: 30 day, Stop date: 10/07/11 8:00:00 IVPB No Longer Active Jared 09/07/2011 [facility] vancomycin 1.25 gm, 250 mL, [place]: IVPB, Drug form: INJ, Q12H, Start date: 09/07/11 14:00:00, Stop date: 10/07/11 13:00:00 IVPB No Longer Active Jared 09/07/2011 [facility] vancomycin 1 gm, Route: IVPB, ONCE, Start date: 09/07/11 2:08:00, Stop date: 09/07/11 2:08:00 IVPB No Longer Active Ferreira 09/07/2011 [facility] cefazolin 1 gm, Route: IVPB, A BXQ8H, Start date: 09/06/11 22:00:00, Duration: 30 day, Stop date: 10/06/11 16:00:00 IVPB No Longer Active Jared 09/07/2011 [facility] Sodium Chloride 0.9% IV 25 mL, Route: IV, PRN, Line Flush, Start date: 09/06/11 21:19:00, Duration: 30 day, Stop date: 10/06/11 21:18:00 IV No Longer Active Jared 09/07/2011 [facility] BD Normal Saline Flush 10 mL, Route: IV, Drug Form: INJ, PRN, PRN Line Flush, Start date: 09/06/11 21:19:00, Duration: 30 day, Stop date: 10/06/11 21:18:00 IV No Longer Active Jared 09/07/2011 [facility] Lexapro 20 mg, 1 tab, Route: P O, Drug form: TAB, Daily, Start date: 09/06/11 21:18:00, Duration: 30 day, Stop date: 10/06/11 9:00:00 PO No Longer Active Jared 09/07 [facility] acetaminophen-hydrocodone 325 mg-5 mg oral tablet 1 tab, Route: PO, Drug Form: TAB, Q8H, PRN Pain, Start date: 09/06/11 21:17:00, Stop date: 10/06/11 21:16:00 PO No Longer Active Jared 09/07/2011 [facility] Neurontin 300 mg, 1 cap, Route : PO, Drug form: CAP, TID, Start date: 09/06/11 21:16:00, Duration: 30 day, Stop date: 10/06/11 17:00:00 PO No Longer Active Jared 09/07 [facility] Dolophine 40 mg, 4 tab, Route: PO, Drug form: TAB, BID, Start date: 09/06/11 21:16:00, Duration: 30 day, Stop date: 10/06/11 17:00:00 PO No Longer Active Jared 09/07 [facility] baclofen 10 mg, 1 tab, Route: PO, Drug form: TAB, BID, Start date: 09/06/11 21:15:00, Stop date: 10/06/11 17:00:00 PO No Longer Active Jared 09/07/2011 [facility] Xanax 2 mg, 2 tab, Route: PO, Drug form: TAB, BID, Start date: 09/06/11 21:14:00, Stop date: 10/06/11 17:00:00 PO No Longer Active Jared 09/07/2011 [facility] Xanax 2 mg oral tablet 1 tab, PO, BID, PRN, Anxiety, Substitution Allowed PO Active 04/18/2011 [facility] Soma 350 mg oral tablet 1 tab, PO, TID, 21 tab, Substitution Allowed, TAB PO Active 04/18/2011 [facility] [place] 5/325 oral tablet 1 tab, PO, Q4H, PRN, for pain, Substitution Allowed, Maintenance, TAB PO Active 04/18/2011 [facility] [place] 10/325 oral tablet 1-2 t ab, PO, Q4-6H, PRN, 30 tab, Pain, Substitution Allowed, Maintenance PO Active 04/18/2011 [facility] Ditropan XL 15 mg oral tablet, extended release BID, Substitution Allowed Active 04/15/2011 [facility] Allergies, Adverse Reactions, Alerts Substance Category Reaction Severity Reaction type Status Date Reported Comments Source Latex Assertion Propensity to adverse reacti ons to substance Active [facility] morphine Assertion Drug allergy Active [facility] naproxen Assertion Drug allergy Active [facility] NKFA Assertion Food allergy Active [facility] traMADol<sup>1, 2</sup> Assert ion Drug aller gy Active berenice ent said he is allergic to tramadol patient stated he is not allergic to tramadol. He overdosed on tramadol and had a seizure about a year ago [facility] DULoxetine Assertion Drug allergy Active [facility] traMADol Assertion Drug allergy Active [facility] Immunizations Immunization Date Given Site Status Last Updated Comments Source hepatitis B adult vaccine 02/02 Right deltoid completed [facility] pneumococcal 13-valent vaccine 08/13/2016 Left deltoid completed [facility] influenza virus vaccine, inactivated 05/28/2015 Right Deltoid completed [facility] pneumococcal 23-valent vaccine 05/16/2012 Left deltoid completed [facility] influenza virus vaccine, inactivated 05/16/2012 Left deltoid completed Luis Carlos [facility] pneumococcal 23-valent vaccine 05/16/[address] [facility] influenza virus vaccine, inactivated 05/16/[address] [facility] Results Order Name Results Value Reference Range Date Interpretation Comments Source CHEM PANEL Glucose Lvl 94 70 - 99 12/09/2019 [facility] CHEM PANEL BUN 29 7 - 22 12/09/2019 [facility] CHEM [facility] Creatinine Lvl 1.67 0.50 - 1.40 12/09/2019 [facility] CHEM PANEL Sodium Lvl 138 135 - 145 12/09/2019 [facility] CHEM [facility] Potassium Lvl 5.0 3.5 - 5.1 12/09/2019 [facility] CHEM PANEL Chloride Lvl 110 95 - 109 12/09/2019 [facility] CHEM PANEL CO2 21 24 - 32 12/09/2019 [facility] CHEM PANEL Calcium Lvl 8.7 8.5 - 10.5 12/09/2019 [facility] CHEM PANEL AGAP 12.0 10.0 - 20.0 12/09/2019 [facility] CHEM [facility] eGFR 53 12/09/2019 Result Comment: The eGFR is calculated using the CKD-EPI formula. In most young, healthy individuals the eGFR will be >90 mL/min/1.73m2. The eGFR declines with age. An eGFR of 60-89 may be normal in some populations, particularly the elderly, for whom the CKD-EPI formula has not been extensively validated. Use of the eGFR is not recommended in the following populations:

Individuals with unstable creatinine concentrations, including patients and those with serious co-morbid conditions.

Patients with extremes in muscle mass or diet.

The data above are obtained from the National Kidney Disease Education Program (NKDEP) which additionally recommends that when the eGFR is used in patients with extremes of body mass index for purposes of drug dosing, the eGFR should be multiplied by the estimated BMI. [facility] CHEM PANEL Glucose Lvl 90 70 - 99 12/07/2019 [facility] CHEM PANEL BUN 35 7 - 22 12/07/2019 [facility] CHEM [facility] Creatinine Lvl 2.38 0.50 - 1.40 12/07/2019 [facility] CHEM PANEL Sodium Lvl 133 135 - 145 12/07/2019 [facility] CHEM PANEL Potassium Lvl 4.8 3.5 - 5.1 12/07/2019 [facility] CHEM PANEL Chloride Lvl 107 95 - 109 12/07/2019 [facility] CHEM PANEL CO2 19 24 - 32 12/07/2019 [facility] CHEM PANEL Calcium Lvl 7.9 8.5 - 10.5 12/07/2019 [facility] CHEM PANEL AGAP 11.8 10.0 - 20.0 12/07/2019 [facility] CHEM PANEL eGFR 34 12/07/2019 Result Comment: The eGFR is calculated using the CKD-EPI formula. In most young, healthy individuals the eGFR will be >90 mL/min/1.73m2. The eGFR declines with age. An eGFR of 60-89 may be normal in some populations, particularly the elderly, for whom the CKD-EPI formula has not been extensively validated. Use of the eGFR is not recommended in the following populations:

Individuals with unstable creatinine concentrations, including patients and those with serious co-morbid conditions.

Patients with extremes in muscle mass or diet.

The data above are obtained from the National Kidney Disease Education Program (NKDEP) which additionally recommends that when the eGFR is used in patients with extremes of body mass index for purposes of drug dosing, the eGFR should be multiplied by the estimated BMI. [facility] HEMATOLOGY WBC 5.2 3.7 - 10.4 12/07/2019 [facility] RBC 3.15 4.70 - 6.10 12/07/2019 [facility] Hgb 7.9 14.0 - 18.0 12/07/2019 [facility] Hct 24.6 42.0 - 54.0 12/07/2019 [facility] MCV 78.1 80.0 - 94.0 12/07/2019 [facility] MCH 25.0 27.0 - 31.0 12/07/2019 [facility] MCHC 32.0 32.0 - 36.0 12/07/2019 [facility] RDW 23.2 11.5 - 14.5 12/07/2019 [facility] Platelet 212 133 - 450 12/07/2019 [facility] MPV 8.3 7.4 - 10.4 12/07/2019 [facility] RBC Morph See N ote (12/07/19 4:53 AM) Normal 12/07/2019 [facility] Plt Morph Leeann l (12/07/19 4:53 AM) Normal 12/07/2019 [facility] Segs 68.5 45.0 - 75.0 12/07/2019 [facility] Lymphocytes 18.8 20.0 - 40.0 12/07/2019 [facility] HEMATOLOGY Monocytes 8.5 2.0 - 12.0 12/07/2019 [facility] HEMATOLOGY Eosinophils 3.0 0.0 - 4.0 12/07/2019 [facility] Basophils 1.2 0.0 - 1.0 12/07/2019 [facility] Neutrophils # 3.5 1.5 - 8.1 12/07/2019 [facility] Lymphocytes # 1.0 1.0 - 5.5 12/07/2019 [facility] Monocytes # 0.4 0.0 - 0.8 12/07/2019 [facility] Eosinophils # 0.2 0.0 - 0.5 12/07/2019 [facility] Basophils # 0.1 0.0 - 0.2 12/07/2019 [facility] Anisocyte 1+ *ABN* (12/07/19 4:53 AM) None Seen 12/07/2019 [facility] Microcyte 1+ *ABN* (12/07/19 4:53 AM) None Seen 12/07/2019 [facility] Spherocyte Occas ional *ABN* (12/07/19 4:53 AM) None Seen 12/07/2019 [facility] CHEM PANEL Glucose Lvl 111 70 - 99 12/06/2019 [facility] CHEM PANEL BUN 38 7 - 22 12/06/2019 [facility] CHEM PANEL Creatinine Lvl 2.62 0.50 - 1.40 12/06/2019 [facility] CHEM PANEL Sodium Lvl 136 135 - 145 12/06/2019 [facility] CHEM PANEL Potassium Lvl 4.7 3.5 - 5.1 12/06/2019 [facility] CHEM PANEL Chloride Lvl 109 95 - 109 12/06/2019 [facility] CHEM PANEL CO2 21 24 - 32 12/06/2019 [facility] CHEM PANEL Calcium Lvl 7.6 8.5 - 10.5 12/06/2019 [facility] CHEM PANEL AGAP 10.7 10.0 - 20.0 12/06/2019 [facility] CHEM PANEL eGFR 31 12/06/2019 Result Comment: The eGFR is calculated using the CKD-EPI formula. In most young, healthy individuals the eGFR will be >90 mL/min/1.73m2. The eGFR declines with age. An eGFR of 60-89 may be normal in some populations, particularly the elderly, for whom the CKD-EPI formula has not been extensively validated. Use of the eGFR is not recommended in the following populations:

Individuals with unstable creatinine concentrations, including patients and those with serious co-morbid conditions.

Patients with extremes in muscle mass or diet.

The data above are obtained from the National Kidney Disease Education Program (NKDEP) which additionally recommends that when the eGFR is used in patients with extremes of body mass index for purposes of drug dosing, the eGFR should be multiplied by the estimated BMI. [facility] CHEM PANEL Lactic Acid Lvl 1.5 0.5 - 2.2 12/06/2019 [facility] CHEM PANEL Procalcitonin Lvl 148.3 5 0.00 - 0.10 12/06/2019 Result Comment: Critical Result(s) jamil d hallie otoole at Tan_12/06/2019 12:39 by _. Read back OK. [facility] HEMATOLOGY WBC 9.9 3.7 - 10.4 12/06/2019 [facility] RBC 3.34 4.70 - 6.10 12/06/2019 [facility] Hgb 8.4 14.0 - 18.0 12/06/2019 [facility] Hct 26.3 42.0 - 54.0 12/06/2019 [facility] MCV 78.8 80.0 - 94.0 12/06/2019 [facility] MCH 25.0 27.0 - 31.0 12/06/2019 [facility] MCHC 31.7 32.0 - 36.0 12/06/2019 [facility] RDW 22.9 11.5 - 14.5 12/06/2019 [facility] Platelet 209 133 - 450 12/06/2019 [facility] MPV 8.6 7.4 - 10.4 12/06/2019 [facility] WBC 8.1 3.7 - 10.4 12/05/2019 [facility] RBC 3.86 4.70 - 6.10 12/05/2019 [facility] Hgb 9.4 14.0 - 18.0 12/05/2019 [facility] Hct 30.3 42.0 - 54.0 12/05/2019 [facility] MCV 78.6 80.0 - 94.0 12/05/2019 [facility] MCH 24.4 27.0 - 31.0 12/05/2019 [facility] MCHC 31.1 32.0 - 36.0 12/05/2019 [facility] HEMATOLOGY RDW 23.7 11.5 - 14.5 12/05/2019 [facility] HEMATOLOGY Platelet 262 133 - 450 12/05/2019 [facility] HEMATOLOGY MPV 8.4 7.4 - 10.4 12/05/2019 [facility] HEMATOLOGY Segs 61.5 45.0 - 75.0 12/04/2019 [facility] HEMATOLOGY Lymphocytes 22.4 20.0 - 40.0 12/04/2019 [facility] HEMATOLOGY Monocytes 11.6 2.0 - 12.0 12/04/2019 [facility] HEMATOLOGY Eosinophils 2.0 0.0 - 4.0 12/04/2019 [facility] HEMATOLOGY Basophils 2.5 0.0 - 1.0 12/04/2019 [facility] HEMATOLOGY Neutrophils # 3.7 1.5 - 8.1 12/04/2019 [facility] HEMATOLOGY Lymphocytes # 1.4 1.0 - 5.5 12/04/2019 [facility] HEMATOLOGY Monocytes # 0.7 0.0 - 0.8 12/04/2019 [facility] HEMATOLOGY Eosinophils # 0.1 0.0 - 0.5 12/04/2019 [facility] Basophils # 0.2 0.0 - 0.2 12/04/2019 [facility] CHEM PANEL Albumin Lvl 2.0 3.5 - 5.0 12/03/2019 [facility] CHEM PANEL Phosphorus 3.2 2.5 - 4.5 12/03/2019 [facility] CHEM PANEL Magnesium Lvl 1.6 1.8 - 2.4 12/03/2019 [facility] CHEM PANEL Phosphorus 3.2 2.5 - 4.5 12/03/2019 [facility] CHEM PANEL Lactic Acid Lvl 0.8 0.5 - 2.2 12/03/2019 [facility] URINE AND STOOL UA Turbidity Slight *ABN* (12/02/19 9:41 PM) Clear 12/03/2019 [facility] URINE AND STOOL UA Spec Grav 1.006 <=1.030 12/03/2019 [facility] URINE AND STOOL UA pH 6.0 5.0 - 8.0 12/03/2019 [facility] URINE AND STOOL UA Protein 30 mg/dL Negative mg/dL 12/03/2019 [facility] URINE AND STOOL UA Glucose Negative mg/dL Negative mg/dL 12/03/[address] [facility] URINE AND STOOL UA Ketones Negative mg/dL Negative mg/dL 12/03/[address] [facility] URINE AND STOOL UA Bili Negative *NA* (12/02/19 9:41 PM) Negative 12/03/2019 [facility] URINE AND STOOL UA Blood Moderate *ABN* (12/02/19 9:41 PM) Negative 12/03/2019 [facility] URINE AND STOOL UA Nitrite Negative (12/02/19 9:41 PM) Negative 12/03/2019 [facility] URINE AND STOOL UA Leuk Est Large *ABN* (12/02/19 9:41 PM) Negative 12/03/2019 [facility] URINE AND STOOL UA WBC 74 0 - 5 12/03/2019 [facility] URINE AND STOOL UA RBC 9 0 - 2 12/03/2019 [facility] URINE AND STOOL UA Bacteria Occasional /HPF None Seen /HPF 12/03/2019 [facility] URINE AND STOOL UA Hyph Yeast Occasional *ABN* (12/02/19 9:41 PM) None Seen 12/03/2019 [facility] URINE AND STOOL UA Sq Epi None Seen 12/03/2019 [facility] URINE AND STOOL UA Color Ltyellow 12/03/2019 [facility] URINE AND STOOL UA Urobilinogen <=1.0 mg/dL 0.1 - 1.0 12/03/2019 [facility] Culture: Urine No Growth 12/03/2019 [facility] CARDIAC ENZYMES Troponin-I <0.02 0.00 - 0.40 12/03/2019 [facility] CARDIAC ENZYMES Total CK 103 12 - 191 12/03/2019 [facility] CHEM PANEL Total Protein 7.6 6.4 - 8.4 12/03/2019 [facility] CHEM PANEL Albumin Lvl 2.1 3.5 - 5.0 12/03/2019 [facility] CHEM PANEL ALT 18 0 - 65 12/03/2019 [facility] CHEM PANEL AST 14 0 - 37 12/03/2019 [facility] CHEM PANEL Alk Phos 89 39 - 136 12/03/2019 [facility] CHEM PANEL Bili Total 0.3 0.2 - 1.3 12/03/2019 [facility] CHEM PANEL B/C Ratio 25 6 - 25 12/03/2019 [facility] CHEM PANEL Globulin 5.5 2.7 - 4.2 12/03/2019 [facility] CHEM PANEL A/G Ratio 0.4 0.7 - 1.6 12/03/2019 [facility] CHEM PANEL Magnesium Lvl 1.6 1.8 - 2.4 12/03/2019 [facility] CHEM PANEL Phosphorus 3.0 2.5 - 4.5 12/03/2019 [facility] HEMATOLOGY PT 14.8 12.0 - 14.7 12/03/2019 [facility] HEMATOLOGY INR 1.15 0.85 - 1.17 12/03/2019 [facility] HEMATOLOGY PTT 35.1 22.9 - 35.8 12/03/2019 [facility] HEMATOLOGY RBC Morph See N ote (12/02/19 9:38 PM) Normal 12/03/2019 [facility] HEMATOLOGY Plt Morph Leeann l (12/02/19 9:38 PM) Normal 12/03/2019 [facility] HEMATOLOGY Segs 63.4 45.0 - 75.0 12/03/2019 [facility] HEMATOLOGY Lymphocytes 21.5 20.0 - 40.0 12/03/2019 [facility] HEMATOLOGY Monocytes 11.8 2.0 - 12.0 12/03/2019 [facility] HEMATOLOGY Eosinophils 2.5 0.0 - 4.0 12/03/2019 [facility] HEMATOLOGY Basophils 0.8 0.0 - 1.0 12/03/2019 [facility] HEMATOLOGY Neutrophils # 6.4 1.5 - 8.1 12/03/2019 [facility] Lymphocytes # 2.2 1.0 - 5.5 12/03/2019 [facility] Monocytes # 1.2 0.0 - 0.8 12/03/2019 [facility] Eosinophils # 0.3 0.0 - 0.5 12/03/2019 [facility] Basophils # 0.1 0.0 - 0.2 12/03/2019 [facility] Anisocyte 1+ *ABN* (12/02/19 9:38 PM) None Seen 12/03/2019 [facility] Microcyte 1+ *ABN* (12/02/19 9:38 PM) None Seen 12/03/2019 [facility] HEMATOLOGY Spherocyte Occas ional *ABN* (12/02/19 9:38 PM) None Seen 12/03/2019 [facility] CHEM PANEL Glucose Lvl 107 70 - 99 11/18/2019 [facility] CHEM PANEL BUN 20 7 - 22 11/18/2019 [facility] CHEM PANEL Creatinine Lvl 1.61 0.50 - 1.40 11/18/2019 [facility] CHEM PANEL Sodium Lvl 134 135 - 145 11/18/2019 [facility] CHEM PANEL Potassium Lvl 4.4 3.5 - 5.1 11/18/2019 [facility] CHEM PANEL Chloride Lvl 105 95 - 109 11/18/2019 [facility] CHEM PANEL CO2 22 24 - 32 11/18/2019 [facility] CHEM PANEL Calcium Lvl 7.9 8.5 - 10.5 11/18/2019 [facility] CHEM PANEL AGAP 11.4 10.0 - 20.0 11/18/2019 [facility] CHEM PANEL eGFR 55 11/18/2019 Result Comment: The eGFR is calculated using the CKD-EPI formula. In most young, healthy individuals the eGFR will be >90 mL/min/1.73m2. The eGFR declines with age. An eGFR of 60-89 may be normal in some populations, particularly the elderly, for whom the CKD-EPI formula has not been extensively validated. Use of the eGFR is not recommended in the following populations:

Individuals with unstable creatinine concentrations, including patients and those with serious co-morbid conditions.

Patients with extremes in muscle mass or diet.

The data above are obtained from the National Kidney Disease Education Program (NKDEP) which additionally recommends that when the eGFR is used in patients with extremes of body mass index for purposes of drug dosing, the eGFR should be multiplied by the estimated BMI. [facility] HEMATOLOGY WBC 5.7 3.7 - 10.4 11/18/2019 [facility] HEMATOLOGY RBC 3.33 4.70 - 6.10 11/18/2019 [facility] HEMATOLOGY Hgb 8.2 14.0 - 18.0 11/18/2019 [facility] HEMATOLOGY Hct 25.8 42.0 - 54.0 11/18/2019 [facility] HEMATOLOGY MCV 77.5 80.0 - 94.0 11/18/2019 [facility] HEMATOLOGY MCH 24.6 27.0 - 31.0 11/18/2019 [facility] HEMATOLOGY MCHC 31.7 32.0 - 36.0 11/18/2019 [facility] HEMATOLOGY RDW 20.0 11.5 - 14.5 11/18/2019 [facility] HEMATOLOGY Platelet 120 133 - 450 11/18/2019 [facility] HEMATOLOGY MPV 8.7 7.4 - 10.4 11/18/2019 [facility] CHEM PANEL Glucose Lvl 88 70 - 99 11/17/2019 [facility] CHEM PANEL BUN 24 7 - 22 11/17/2019 [facility] CHEM PANEL Creatinine Lvl 1.37 0.50 - 1.40 11/17/2019 [facility] CHEM PANEL Sodium Lvl 134 135 - 145 11/17/2019 [facility] CHEM PANEL Potassium Lvl 4.3 3.5 - 5.1 11/17/2019 [facility] CHEM PANEL Chloride Lvl 107 95 - 109 11/17/2019 [facility] CHEM PANEL CO2 22 24 - 32 11/17/2019 [facility] CHEM PANEL Calcium Lvl 8.2 8.5 - 10.5 11/17/2019 [facility] CHEM PANEL AGAP 9.3 10.0 - 20.0 11/17/2019 [facility] CHEM PANEL eGFR 67 11/17/2019 Result Comment: The eGFR is calculated using the CKD-EPI formula. In most young, healthy individuals the eGFR will be >90 mL/min/1.73m2. The eGFR declines with age. An eGFR of 60-89 may be normal in some populations, particularly the elderly, for whom the CKD-EPI formula has not been extensively validated. Use of the eGFR is not recommended in the following populations:

Individuals with unstable creatinine concentrations, including patients and those with serious co-morbid conditions.

Patients with extremes in muscle mass or diet.

The data above are obtained from the National Kidney Disease Education Program (NKDEP) which additionally recommends that when the eGFR is used in patients with extremes of body mass index for purposes of drug dosing, the eGFR should be multiplied by the estimated BMI. [facility] CHEM PANEL Glucose Lvl 89 70 - 99 11/16/2019 [facility] CHEM PANEL BUN 27 7 - 22 11/16/2019 [facility] CHEM PANEL Creatinine Lvl 1.53 0.50 - 1.40 11/16/2019 [facility] CHEM PANEL Sodium Lvl 138 135 - 145 11/16/2019 [facility] CHEM PANEL Potassium Lvl 4.0 3.5 - 5.1 11/16/2019 [facility] CHEM PANEL Chloride Lvl 109 95 - 109 11/16/2019 [facility] CHEM PANEL CO2 20 24 - 32 11/16/2019 [facility] CHEM PANEL Calcium Lvl 8.4 8.5 - 10.5 11/16/2019 [facility] CHEM PANEL AGAP 13.0 10.0 - 20.0 11/16/2019 [facility] CHEM PANEL eGFR 58 11/16/2019 Result Comment: The eGFR is calculated using the CKD-EPI formula. In most young, healthy individuals the eGFR will be >90 mL/min/1.73m2. The eGFR declines with age. An eGFR of 60-89 may be normal in some populations, particularly the elderly, for whom the CKD-EPI formula has not been extensively validated. Use of the eGFR is not recommended in the following populations:

Individuals with unstable creatinine concentrations, including patients and those with serious co-morbid conditions.

Patients with extremes in muscle mass or diet.

The data above are obtained from the National Kidney Disease Education Program (NKDEP) which additionally recommends that when the eGFR is used in patients with extremes of body mass index for purposes of drug dosing, the eGFR should be multiplied by the estimated BMI. [facility] HEMATOLOGY WBC 5.3 3.7 - 10.4 11/16/2019 [facility] RBC 3.72 4.70 - 6.10 11/16/2019 [facility] Hgb 9.2 14.0 - 18.0 11/16/2019 [facility] Hct 29.1 42.0 - 54.0 11/16/2019 [facility] MCV 78.3 80.0 - 94.0 11/16/2019 [facility] MCH 24.7 27.0 - 31.0 11/16/2019 [facility] MCHC 31.5 32.0 - 36.0 11/16/2019 [facility] RDW 19.9 11.5 - 14.5 11/16/2019 [facility] Platelet 162 133 - 450 11/16/2019 [facility] MPV 9.2 7.4 - 10.4 11/16/2019 [facility] TOXICOLOGY Vanco Lvl 12.5 11/15/2019 [facility] WBC 4.8 3.7 - 10.4 11/14/2019 [facility] RBC 3.45 4.70 - 6.10 11/14/2019 [facility] Hgb 8.4 14.0 - 18.0 11/14/2019 [facility] HEMATOLOGY Hct 27.3 42.0 - 54.0 11/14/2019 [facility] MCV 79.0 80.0 - 94.0 11/14/2019 [facility] MCH 24.4 27.0 - 31.0 11/14/2019 [facility] MCHC 30.9 32.0 - 36.0 11/14/2019 [facility] HEMATOLOGY RDW 19.8 11.5 - 14.5 11/14/2019 [facility] HEMATOLOGY Platelet 175 133 - 450 11/14/2019 [facility] HEMATOLOGY MPV 8.6 7.4 - 10.4 11/14/2019 [facility] TOXICOLOGY Vanco Lvl 15.5 11/13/2019 [facility] CHEM PANEL Total Protein 6.5 6.4 - 8.4 11/13/2019 [facility] CHEM PANEL Albumin Lvl 2.2 3.5 - 5.0 11/13/2019 [facility] CHEM PANEL ALT 19 0 - 65 11/13/2019 [facility] CHEM PANEL AST 16 0 - 37 11/13/2019 [facility] CHEM PANEL Alk Phos 75 39 - 136 11/13/2019 [facility] CHEM PANEL Bili Total 0.2 0.2 - 1.3 11/13/2019 [facility] CHEM PANEL B/C Ratio 17 6 - 25 11/13/2019 [facility] CHEM PANEL Globulin 4.3 2.7 - 4.2 11/13/2019 [facility] CHEM PANEL A/G Ratio 0.5 0.7 - 1.6 11/13/2019 [facility] TOXICOLOGY Vanco Lvl 17.1 11/11/2019 [facility] IMMUNOLOGY Homocyst Tot 12.0 0.0 - 14.5 11/11/2019 Result Comment: Please n ote reference interval change [facility] IMMUNOLOGY MMA Qnt 485 0 - 378 11/11/2019 [facility] [facility] Folate Lvl 9.0 >=3.0 ng/mL 11/10/2019 [facility] ANEMIA STUDY Ferritin Lvl 82 22 - 275 11/10/2019 [facility] ANEMIA STUDY Vitamin B12 Lvl 285 254 - 1320 11/10/2019 [facility] ANEMIA STUDY Iron 21 45 - 160 11/10/2019 [facility] ANEMIA STUDY TIBC 168 228 - 428 11/10/2019 [facility] ANEMIA STUDY UIBC 147 110 - 370 11/10/2019 [facility] ANEMIA STUDY % Satur Fe 12 12 - 57 11/10/2019 [facility] CHEM PANEL Erythropoietin 13.6 2.6 - 18.5 11/10/2019 Result Comment: Lifesquareel D xI 800 Immunoassay System

Values obtained with different assay methods or kits cannot
be used interchangeably. Results cannot be interpreted as
absolute evidence of the presence or absence of malignant
disease.
Performed At: [facility]
[address], [place] [id number]
Carmelo Montana MD Ph:[phone] [facility] HEMATOLOGY Retic Auto 1.3 0.5 - 1.5 11/10/2019 [facility] TOXICOLOGY Vanco Tr 9.8 11/09/2019 [facility] TOXICOLOGY Vanco Tr TND 12:00 11/09/2019 [facility] Culture: Urine 1000-10,000/cfu /ml Melody tropicalis 11/08/[address] [facility] [address] TOXICOLOGY Vanco Tr 18.8 11/08/2019 [facility] TOXICOLOGY Vanco Tr TND 2330 11/08/2019 [facility] IMMUNOLOGY Albumin % 44.8 55.8 - 66.1 11/07/2019 [facility] IMMUNOLOGY Alpha 1 % 7.8 2.8 - 4.9 11/07/2019 [facility] IMMUNOLOGY Alpha 2 % 13.4 7.0 - 11.9 11/07/2019 [facility] IMMUNOLOGY Beta % 15.2 7.8 - 13.7 11/07/2019 [facility] IMMUNOLOGY Gamma % 18.8 11.1 - 18.7 11/07/2019 [facility] IMMUNOLOGY Albumin (SPE) 3.58 3.57 - 5.55 11/07/2019 [facility] IMMUNOLOGY Alpha 1 Glob 0.62 0.18 - 0.41 11/07/2019 [facility] IMMUNOLOGY Alpha 2 Glob 1.07 0.45 - 1.00 11/07/2019 [facility] IMMUNOLOGY Beta Glob 1.22 0.50 - 1.15 11/07/2019 [facility] IMMUNOLOGY Gamma Glob 1.50 0.71 - 1.57 11/07/2019 [facility] IMMUNOLOGY Tot Prot (SPE) 8.0 6.4 - 8.4 11/07/2019 [facility] IMMUNOLOGY SPE Interp Total protein and serum albumin levels are within reference ranges. Serum capillary protein electrophoresis shows elevated alpha-1 and alpha-2 globulin fractions. No monoclonal proteins are identified. The electrophoretic pattern is consistent with the acute phase of an inflammatory process. Clinical correlation is required. Interpretation performed at [facility]. 11/07/2019 [facility] SPECIAL CHEMISTRY PSA 0.94 0.00 - 4.00 11/07/2019 [facility] VANCOMYCIN:SUSC:PT:ISOLATE:ORDQN:GRADIENT STRIP Gram Stain Report No Wbc'S Or Organisms Seen 11/05/2019 [facility] VANCOMYCIN:SUSC:PT:ISOLATE:ORDQN:GRADIENT STRIP Culture: Aspirate/Body Fluid/Tissue Growth In Subculture Broth Only : Streptococcus mitis 11/05/2019 [facility] VANCOMYCIN:SUSC:PT:ISOLATE:ORDQN:GRADIENT STRIP Streptococcus mitis Streptococcus mitis 11/05/2019 [facility] Culture: Anaerobic No Anaerobes Is olated After 5 Days 11/05/2019 [facility] TRIMETHOPRIM+SULFAMETHOXAZOLE:SUSC:PT:ISOLATE:ORDQN:[place] C Gram Stain Report No Wbc'S Or Organisms Seen 11/05/2019 [facility] TRIMETHOPRIM+SULFAMETHOXAZOLE:SUSC:PT:ISOLATE:ORDQN:W[place] C Culture: Aspirate/Body Fluid/Tissue Rare Methicillin Resistant Staphylococcu s aureus 11/05/2019 [facility] TRIMETHOPRIM+SULFAMETHOXAZOLE:SUSC:PT:ISOLATE:ORDQN:[place] C Methicillin Resistant Staphylococcus aureus Methicillin Resistant Staphylococcus aureus 11/05/2019 [facility] Culture: Anaerobic No Anaerobes Is olated After 5 Days 11/05/2019 [facility] LIPIDS Trig 133 <=149 mg/dL 11/05/2019 [facility] LIPIDS Chol 167 <=199 mg/dL 11/05/2019 [facility] LIPIDS HDL 34 >=61 mg/dL 11/05/2019 [facility] LIPIDS CHD Risk 4.91 4.00 - 7.30 11/05/2019 [facility] LIPIDS LDL (Calculated) 106 <=99 mg/dL 11/05/2019 [facility] LIPIDS VLDL 27 11/05/2019 [facility] SPECIAL CHEMISTRY Hgb A1C 5.1 <=5.6 % 11/05/2019 [facility] CHEM PANEL Total Protein 8.0 6.4 - 8.4 11/05/2019 [facility] CHEM PANEL Albumin Lvl 2.8 3.5 - 5.0 11/05/2019 [facility] CHEM PANEL ALT 16 0 - 65 11/05/2019 [facility] CHEM PANEL AST 8 0 - 37 11/05/2019 [facility] CHEM PANEL Alk Phos 78 39 - 136 11/05/2019 [facility] CHEM PANEL Bili Total 0.2 0.2 - 1.3 11/05/2019 [facility] CHEM PANEL B/C Ratio 11 6 - 25 11/05/2019 [facility] CHEM PANEL Globulin 5.2 2.7 - 4.2 11/05/2019 [facility] CHEM PANEL A/G Ratio 0.5 0.7 - 1.6 11/05/2019 [facility] HEMATOLOGY Sed Rate 93 0 - 15 11/05/2019 [facility] IMMUNOLOGY C-REACTIVE PROTEIN 44.6 <=2.9 mg/L 11/05/2019 [facility] CIPROFLOXACIN:SUSC:PT:ISOLATE:ORDQN:NHUNG Gram Stain Report Rare Wbc'S; Rare Gram Positive Cocci In Clusters 11/04/2019 [facility] CIPROFLOXACIN:SUSC:PT:ISOLATE:ORDQN:NHUNG Culture: Wound/Abscess w/Gram Stain Many Methicillin Resistant Staphylococcu s aureus 11/04/2019 [facility] CIPROFLOXACIN:SUSC:PT:ISOLATE:ORDQN:NHUNG Methicillin Resistant Staphylococcus aureus Methicillin Resistant Staphylococcus aur eus 11/04/2019 [facility] CHEM PANEL eGFR 88 07/07/2018 Result Comment: The eGFR is calculated using the CKD-EPI formula. In most young, healthy individuals the eGFR will be >90 mL/min/1.73m2. The eGFR declines with age. An eGFR of 60-89 may be normal in some populations, particularly the elderly, for whom the CKD-EPI formula has not been extensively validated. Use of the eGFR is not recommended in the following populations:

Individuals with unstable creatinine concentrations, including patients and those with serious co-morbid conditions.

Patients with extremes in muscle mass or diet.

The data above are obtained from the National Kidney Disease Education Program (NKDEP) which additionally recommends that when the eGFR is used in patients with extremes of body mass index for purposes of drug dosing, the eGFR should be multiplied by the estimated BMI. [facility] CHEM PANEL ALT 11 0 - 65 07/07/2018 [facility] CHEM PANEL A/G Ratio 0.5 0.7 - 1.6 07/07/2018 [facility] CHEM PANEL Globulin 5.5 2.7 - 4.2 07/07/2018 [facility] CHEM PANEL Albumin Lvl 3.0 3.5 - 5.0 07/07/2018 [facility] CHEM PANEL Total Protein 8.5 6.4 - 8.4 07/07/2018 [facility] CHEM PANEL Alk Phos 106 39 - 136 07/07/2018 [facility] CHEM PANEL AST 18 0 - 37 07/07/2018 [facility] CHEM PANEL Bili Total 0.5 0.2 - 1.3 07/07/2018 [facility] CHEM PANEL B/C Ratio 15 6 - 25 07/07/2018 [facility] CHEM PANEL Calcium Lvl 10.0 8.5 - 10.5 07/07/2018 [facility] CHEM PANEL AGAP 13.6 10.0 - 20.0 07/07/2018 [facility] CHEM PANEL CO2 22 24 - 32 07/07/2018 [facility] CHEM PANEL BUN 17 7 - 22 07/07/2018 [facility] CHEM PANEL Creatinine Lvl 1.10 0.50 - 1.40 07/07/2018 [facility] CHEM PANEL Sodium Lvl 142 135 - 145 07/07/2018 [facility] CHEM PANEL Potassium Lvl 4.6 3.5 - 5.1 07/07/2018 [facility] CHEM PANEL Chloride Lvl 111 95 - 109 07/07/2018 [facility] CHEM PANEL Glucose Lvl 84 70 - 99 07/07/2018 [facility] HEMATOLOGY Segs 55.7 45.0 - 75.0 07/07/2018 [facility] Lymphocytes 33.8 20.0 - 40.0 07/07/2018 [facility] Monocytes 7.8 2.0 - 12.0 07/07/2018 [facility] Eosinophils 1.8 0.0 - 4.0 07/07/2018 [facility] Basophils 0.9 0.0 - 1.0 07/07/2018 [facility] Monocytes # 0.9 0.0 - 0.8 07/07/2018 [facility] Eosinophils # 0.2 0.0 - 0.5 07/07/2018 [facility] Lymphocytes # 3.9 1.0 - 5.5 07/07/2018 [facility] Neutrophils # 6.5 1.5 - 8.1 07/07/2018 [facility] Basophils # 0.1 0.0 - 0.2 07/07/2018 [facility] Microcyte 1+ *ABN* (07/07/18 5:33 AM) None Seen 07/07/2018 [facility] Platelet 394 133 - 450 07/07/2018 [facility] MPV 9.1 7.4 - 10.4 07/07/2018 [facility] RDW 24.1 11.5 - 14.5 07/07/2018 [facility] MCHC 31.0 32.0 - 36.0 07/07/2018 [facility] RBC 4.01 4.70 - 6.10 07/07/2018 [facility] HEMATOLOGY Hgb 9.6 14.0 - 18.0 07/07/2018 [facility] HEMATOLOGY WBC 11.6 3.7 - 10.4 07/07/2018 [facility] HEMATOLOGY MCH 23.9 27.0 - 31.0 07/07/2018 [facility] HEMATOLOGY MCV 77.0 80.0 - 94.0 07/07/2018 [facility] HEMATOLOGY Hct 30.9 42.0 - 54.0 07/07/2018 [facility] TOXICOLOGY Acetaminoph Lvl <2 (07/06/18 3:14 PM) 10 - 20 07/06/2018 [facility] CHEM PANEL eGFR 79 07/06/2018 Result Comment: The eGFR is calculated using the CKD-EPI formula. In most young, healthy individuals the eGFR will be >90 mL/min/1.73m2. The eGFR declines with age. An eGFR of 60-89 may be normal in some populations, particularly the elderly, for whom the CKD-EPI formula has not been extensively validated. Use of the eGFR is not recommended in the following populations:

Individuals with unstable creatinine concentrations, including patients and those with serious co-morbid conditions.

Patients with extremes in muscle mass or diet.

The data above are obtained from the National Kidney Disease Education Program (NKDEP) which additionally recommends that when the eGFR is used in patients with extremes of body mass index for purposes of drug dosing, the eGFR should be multiplied by the estimated BMI. [facility] CHEM PANEL Glucose Lvl 102 70 - 99 07/06/2018 [facility] CHEM PANEL BUN 25 7 - 22 07/06/2018 [facility] CHEM PANEL Creatinine Lvl 1.20 0.50 - 1.40 07/06/2018 [facility] CHEM PANEL Albumin Lvl 2.6 3.5 - 5.0 07/06/2018 [facility] CHEM PANEL Alk Phos 104 39 - 136 07/06/2018 [facility] CHEM PANEL AST 14 0 - 37 07/06/2018 [facility] CHEM PANEL Total Protein 7.9 6.4 - 8.4 07/06/2018 [facility] CHEM PANEL ALT 15 0 - 65 07/06/2018 [facility] CHEM PANEL Potassium Lvl 4.5 3.5 - 5.1 07/06/2018 [facility] CHEM PANEL Sodium Lvl 141 135 - 145 07/06/2018 [facility] CHEM PANEL CO2 18 24 - 32 07/06/2018 [facility] CHEM PANEL Calcium Lvl 9.2 8.5 - 10.5 07/06/2018 [facility] CHEM PANEL Chloride Lvl 114 95 - 109 07/06/2018 [facility] CHEM PANEL Bili Total 0.2 0.2 - 1.3 07/06/2018 [facility] CHEM PANEL B/C Ratio 21 6 - 25 07/06/2018 [facility] CHEM PANEL AGAP 13.5 10.0 - 20.0 07/06/2018 [facility] CHEM PANEL A/G Ratio 0.5 0.7 - 1.6 07/06/2018 [facility] CHEM PANEL Globulin 5.3 2.7 - 4.2 07/06/2018 [facility] HEMATOLOGY MCH 24.0 27.0 - 31.0 07/06/2018 [facility] HEMATOLOGY MCV 74.8 80.0 - 94.0 07/06/2018 [facility] Hct 28.1 42.0 - 54.0 07/06/2018 [facility] MCHC 32.1 32.0 - 36.0 07/06/2018 [facility] HEMATOLOGY RDW 24.6 11.5 - 14.5 07/06/2018 [facility] WBC 8.1 3.7 - 10.4 07/06/2018 [facility] Hgb 9.0 14.0 - 18.0 07/06/2018 [facility] RBC 3.75 4.70 - 6.10 07/06/2018 [facility] Platelet 374 133 - 450 07/06/2018 [facility] MPV 9.0 7.4 - 10.4 07/06/2018 [facility] Basophils # 0.0 0.0 - 0.2 07/06/2018 [facility] HEMATOLOGY Eosinophils # 0.2 0.0 - 0.5 07/06/2018 [facility] HEMATOLOGY Neutrophils # 5.8 1.5 - 8.1 07/06/2018 [facility] HEMATOLOGY Basophils 0.2 0.0 - 1.0 07/06/2018 [facility] HEMATOLOGY Lymphocytes # 1.6 1.0 - 5.5 07/06/2018 [facility] HEMATOLOGY Monocytes # 0.5 0.0 - 0.8 07/06/2018 [facility] HEMATOLOGY Eosinophils 2.4 0.0 - 4.0 07/06/2018 [facility] HEMATOLOGY Monocytes 6.7 2.0 - 12.0 07/06/2018 [facility] HEMATOLOGY Lymphocytes 19.9 20.0 - 40.0 07/06/2018 [facility] HEMATOLOGY Segs 70.8 45.0 - 75.0 07/06/2018 [facility] HEMATOLOGY Microcyte 2+ *ABN* (07/06/18 6:27 AM) None Seen 07/06/2018 [facility] HEMATOLOGY Anisocyte 1+ *ABN* (07/06/18 6:27 AM) None Seen 07/06/2018 [facility] CHEM PANEL Lactic Acid Lvl 1.0 0.5 - 2.2 07/05/2018 [facility] CHEM PANEL Albumin Lvl 2.7 3.5 - 5.0 07/05/2018 [facility] CHEM PANEL Total Protein 8.0 6.4 - 8.4 07/05/2018 [facility] CHEM PANEL Globulin 5.3 2.7 - 4.2 07/05/2018 [facility] CHEM PANEL Bili Total 0.3 0.2 - 1.3 07/05/2018 [facility] CHEM PANEL eGFR 52 07/05/2018 Result Comment: The eGFR is calculated using the CKD-EPI formula. In most young, healthy individuals the eGFR will be >90 mL/min/1.73m2. The eGFR declines with age. An eGFR of 60-89 may be normal in some populations, particularly the elderly, for whom the CKD-EPI formula has not been extensively validated. Use of the eGFR is not recommended in the following populations:

Individuals with unstable creatinine concentrations, including patients and those with serious co-morbid conditions.

Patients with extremes in muscle mass or diet.

The data above are obtained from the National Kidney Disease Education Program (NKDEP) which additionally recommends that when the eGFR is used in patients with extremes of body mass index for purposes of drug dosing, the eGFR should be multiplied by the estimated BMI. [facility] CHEM PANEL ALT 13 0 - 65 07/05/2018 [facility] CHEM PANEL A/G Ratio 0.5 0.7 - 1.6 07/05/2018 [facility] CHEM PANEL AST 23 0 - 37 07/05/2018 [facility] CHEM PANEL Alk Phos 115 39 - 136 07/05/2018 [facility] CHEM PANEL Glucose Lvl 78 70 - 99 07/05/2018 [facility] CHEM PANEL BUN 41 7 - 22 07/05/2018 [facility] CHEM PANEL Creatinine Lvl 1.70 0.50 - 1.40 07/05/2018 [facility] CHEM PANEL Sodium Lvl 140 135 - 145 07/05/2018 [facility] CHEM PANEL Potassium Lvl 4.5 3.5 - 5.1 07/05/2018 [facility] CHEM PANEL Calcium Lvl 9.0 8.5 - 10.5 07/05/2018 [facility] CHEM PANEL B/C Ratio 24 6 - 25 07/05/2018 [facility] CHEM PANEL CO2 19 24 - 32 07/05/2018 [facility] CHEM PANEL Chloride Lvl 110 95 - 109 07/05/2018 [facility] CHEM PANEL AGAP 15.5 10.0 - 20.0 07/05/2018 [facility] CHEM PANEL Procalcitonin Lvl 0.16 0.00 - 0.10 07/05/2018 [facility] Platelet 348 133 - 450 07/05/2018 [facility] MPV 10.5 7.4 - 10.4 07/05/2018 [facility] Hct 29.4 42.0 - 54.0 07/05/2018 [facility] Hgb 9.1 14.0 - 18.0 07/05/2018 [facility] MCV 75.3 80.0 - 94.0 07/05/2018 [facility] MCH 23.3 27.0 - 31.0 07/05/2018 [facility] RBC 3.90 4.70 - 6.10 07/05/2018 [facility] WBC 12.6 3.7 - 10.4 07/05/2018 [facility] MCHC 30.9 32.0 - 36.0 07/05/2018 [facility] RDW 24.8 11.5 - 14.5 07/05/2018 [facility] Anisocyte 1+ *ABN* (07/05/18 6:01 AM) None Seen 07/05/2018 [facility] Microcyte 1+ *ABN* (07/05/18 6:01 AM) None Seen 07/05/2018 [facility] Neutrophils # 7.0 1.5 - 8.1 07/05/2018 [facility] Lymphocytes # 4.0 1.0 - 5.5 07/05/2018 [facility] Basophils 1.7 0.0 - 1.0 07/05/2018 [facility] Eosinophils # 0.5 0.0 - 0.5 07/05/2018 [facility] Basophils # 0.2 0.0 - 0.2 07/05/2018 [facility] HEMATOLOGY Plt Morph Leeann l (07/05/18 6:01 AM) 07/05/2018 [facility] HEMATOLOGY Segs 55.4 45.0 - 75.0 07/05/2018 [facility] HEMATOLOGY Lymphocytes 32.2 20.0 - 40.0 07/05/2018 [facility] HEMATOLOGY Eosinophils 4.1 0.0 - 4.0 07/05/2018 [facility] HEMATOLOGY Monocytes 6.6 2.0 - 12.0 07/05/2018 [facility] HEMATOLOGY Monocytes # 0.8 0.0 - 0.8 07/05/2018 [facility] BACTERIAL - SEROLOGY Strep pneumonia e Ag Negative (07/04/18 4:17 PM) Negative 07/04/2018 [facility] BACTERIAL - SEROLOGY Source Strep Urine *NA* (07/04/18 4:17 PM) 07/04/2018 [facility] CHEM PANEL Lactic Acid Lvl 2.4 0.5 - 2.2 07/04/2018 [facility] IMMUNOLOGY HIV Ag/Ab 4th Gen Negat pavel *NA* (07/04/18 3:21 PM) Negative 07/04/2018 [facility] VIRAL - SEROLOGY Influ A Negative (07/04/18 3:21 PM) Negative 07/04/2018 [facility] VIRAL - SEROLOGY Influ B Negative (07/04/18 3:21 PM) Negative 07/04/2018 [facility] DRUG SCREEN U Amph Scr Nega tive *NA* (07/04/18 12:41 PM) Negative 07/04/2018 [facility] DRUG SCREEN U Benzodiaz Scr Nega tive *NA* (07/04/18 12:41 PM) Negative 07/04/2018 [facility] DRUG SCREEN U Chelsie Scr Nega tive *NA* (07/04/18 12:41 PM) Negative 07/04/2018 [facility] DRUG SCREEN U Cannab Scr Posi tive *ABN* (07/04/18 12:41 PM) Negative 07/04/2018 [facility] DRUG SCREEN U Phencyclidine Scr Nega tive *NA* (07/04/18 12:41 PM) Negative 07/04/2018 [facility] DRUG SCREEN U Cocaine Scr Nega tive *NA* (07/04/18 12:41 PM) Negative 07/04/2018 [facility] DRUG SCREEN UDS Note See Note (07/04/18 12:41 PM) 07/04/2018 [facility] DRUG SCREEN U Opiate Scr Posi tive *ABN* (07/04/18 12:41 PM) Negative 07/04/2018 [facility] URINE AND STOOL UA Urobilinogen <=1.0 mg/dL 0.1 - 1.0 07/04/2018 [facility] URINE AND STOOL UA Mucus Few /LPF None Seen /LPF 07/04/2018 [facility] URINE AND STOOL UA Bacteria Occasional /HPF None Seen /HPF 07/04/2018 [facility] URINE AND STOOL UA Leuk Est Small *ABN* (07/04/18 12:41 PM) Negative 07/04/2018 [facility] URINE AND STOOL UA Sq Epi Occasional /LPF Few /LPF 07/04/2018 [facility] URINE AND STOOL UA WBC 4 0 - 5 07/04/2018 [facility] URINE AND STOOL UA RBC 2 0 - 2 07/04/2018 [facility] URINE AND STOOL UA Blood Moderate *ABN* (07/04/18 12:41 PM) Negative 07/04/2018 [facility] URINE AND STOOL UA Nitrite Negative (07/04/18 12:41 PM) Negative 07/04/2018 [facility] URINE AND STOOL UA Glucose Negative mg/dL Negative mg/dL 07/04/2018 [facility] URINE AND STOOL UA Ketones Negative mg/dL Negative mg/dL 07/04/2018 [facility] URINE AND STOOL UA Bili Negative *NA* (07/04/18 12:41 PM) Negative 07/04/2018 [facility] URINE AND STOOL UA Turbidity Clear (07/04/18 12:41 PM) Clear 07/04/2018 [facility] URINE AND STOOL UA Spec Grav 1.009 <=1.030 07/04/2018 [facility] URINE AND STOOL UA pH 6.0 5.0 - 8.0 07/04/2018 [facility] URINE AND STOOL UA Protein 100 mg/dL Negative mg/dL 07/04/2018 [facility] URINE AND STOOL UA Color Light Yellow *NA* (07/04/18 12:41 PM) Yellow 07/04/2018 [facility] CHEM PANEL Procalcitonin Lvl 0.46 0.00 - 0.10 07/04/2018 [facility] CHEM PANEL Lactic Acid Lvl 1.3 0.5 - 2.2 07/04/2018 [facility] CARDIAC ENZYMES Troponin-I <0.02 0.00 - 0.40 07/04/2018 [facility] CARDIAC ENZYMES Total CK 269 12 - 191 07/04/2018 [facility] CHEM PANEL Lipase Lvl 61 73 - 393 07/04/2018 [facility] HEMATOLOGY Plt Morph See N ote 1 (07/04/18 10:23 AM) 07/04/2018 Result Comment: Due to occassional clumps, the actual count may be slightly higher. [facility] HEMATOLOGY RBC Morph Leeann l (07/04/18 10:23 AM) 07/04/2018 [facility] HEMATOLOGY Anisocyte 2+ *ABN* (07/04/18 10:23 AM) None Seen 07/04/2018 [facility] TOXICOLOGY Ethanol Lvl <3 07/04/2018 [facility] TOXICOLOGY Etoh (%) <0.003 07/04/2018 [facility] ELECTROLYTES AGAP 12.5 10.0 - 20.0 06/29/2018 [facility] ELECTROLYTES eGFR 112 06/29/2018 Result Comment: The eGFR is calculated using the CKD-EPI formula. In most young, healthy individuals the eGFR will be >90 mL/min/1.73m2. The eGFR declines with age. An eGFR of 60-89 may be normal in some populations, particularly the elderly, for whom the CKD-EPI formula has not been extensively validated. Use of the eGFR is not recommended in the following populations:

Individuals with unstable creatinine concentrations, including patients and those with serious co-morbid conditions.

Patients with extremes in muscle mass or diet.

The data above are obtained from the National Kidney Disease Education Program (NKDEP) which additionally recommends that when the eGFR is used in patients with extremes of body mass index for purposes of drug dosing, the eGFR should be multiplied by the estimated BMI. [facility] ELECTROLYTES Creatinine Lvl 0.9 0 0.50 - 1.40 06/29/2018 [facility] ELECTROLYTES BUN 14 7 - 22 06/29/2018 [facility] ELECTROLYTES Chloride Lvl 107 95 - 109 06/29/2018 [facility] ELECTROLYTES Potassium Lvl 3.5 3.5 - 5.1 06/29/2018 [facility] ELECTROLYTES Sodium Lvl 141 135 - 145 06/29/2018 [facility] ELECTROLYTES Glucose Lvl 82 70 - 99 06/29/2018 [facility] ELECTROLYTES CO2 25 24 - 32 06/29/2018 [facility] ELECTROLYTES Calcium Lvl 8.9 8.5 - 10.5 06/29/2018 [facility] Lymphocytes # 1.6 1.0 - 5.5 06/29/2018 [facility] Neutrophils # 2.4 1.5 - 8.1 06/29/2018 [facility] Eosinophils # 0.3 0.0 - 0.5 06/29/2018 [facility] Monocytes # 0.4 0.0 - 0.8 06/29/2018 [facility] Microcyte 1+ *ABN* (06/29/18 6:13 AM) None Seen 06/29/2018 [facility] Anisocyte 1+ *ABN* (06/29/18 6:13 AM) None Seen 06/29/2018 [facility] Basophils # 0.0 0.0 - 0.2 06/29/2018 [facility] Plt Morph Leeann l (06/29/18 6:13 AM) 06/29/2018 [facility] Monocytes 8.2 2.0 - 12.0 06/29/2018 [facility] Lymphocytes 34.4 20.0 - 40.0 06/29/2018 [facility] Segs 50.7 45.0 - 75.0 06/29/2018 [facility] Basophils 1.0 0.0 - 1.0 06/29/2018 [facility] Eosinophils 5.7 0.0 - 4.0 06/29/2018 [facility] MPV 8.4 7.4 - 10.4 06/29/2018 [facility] Platelet 327 133 - 450 06/29/2018 [facility] MCH 23.8 27.0 - 31.0 06/29/2018 [facility] MCHC 32.7 32.0 - 36.0 06/29/2018 [facility] RDW 25.6 11.5 - 14.5 06/29/2018 [facility] MCV 72.6 80.0 - 94.0 06/29/2018 [facility] Hct 35.0 42.0 - 54.0 06/29/2018 [facility] WBC 5.3 3.7 - 10.4 06/29/2018 [facility] RBC 4.82 4.70 - 6.10 06/29/2018 [facility] Hgb 11.4 14.0 - 18.0 06/29/2018 [facility] CHEM PANEL eGFR 98 06/28/2018 Result Comment: The eGFR is calculated using the CKD-EPI formula. In most young, healthy individuals the eGFR will be >90 mL/min/1.73m2. The eGFR declines with age. An eGFR of 60-89 may be normal in some populations, particularly the elderly, for whom the CKD-EPI formula has not been extensively validated. Use of the eGFR is not recommended in the following populations:

Individuals with unstable creatinine concentrations, including patients and those with serious co-morbid conditions.

Patients with extremes in muscle mass or diet.

The data above are obtained from the National Kidney Disease Education Program (NKDEP) which additionally recommends that when the eGFR is used in patients with extremes of body mass index for purposes of drug dosing, the eGFR should be multiplied by the estimated BMI. [facility] CHEM PANEL CO2 24 24 - 32 06/28/2018 [facility] CHEM PANEL AGAP 10.6 10.0 - 20.0 06/28/2018 [facility] CHEM PANEL Calcium Lvl 9.3 8.5 - 10.5 06/28/2018 [facility] CHEM PANEL BUN 19 7 - 22 06/28/2018 [facility] CHEM PANEL Glucose Lvl 80 70 - 99 06/28/2018 [facility] CHEM PANEL Creatinine Lvl 1.00 0.50 - 1.40 06/28/2018 [facility] CHEM PANEL Sodium Lvl 141 135 - 145 06/28/2018 [facility] CHEM PANEL Potassium Lvl 3.6 3.5 - 5.1 06/28/2018 [facility] CHEM PANEL Chloride Lvl 110 95 - 109 06/28/2018 [facility] MPV 8.2 7.4 - 10.4 06/27/2018 [facility] Hct 28.9 42.0 - 54.0 06/27/2018 [facility] MCH 23.4 27.0 - 31.0 06/27/2018 [facility] HEMATOLOGY MCV 73.9 80.0 - 94.0 06/27/2018 [facility] MCHC 31.6 32.0 - 36.0 06/27/2018 [facility] RDW 26.5 11.5 - 14.5 06/27/2018 [facility] Platelet 474 133 - 450 06/27/2018 [facility] WBC 6.8 3.7 - 10.4 06/27/2018 [facility] RBC 3.91 4.70 - 6.10 06/27/2018 [facility] Hgb 9.1 14.0 - 18.0 06/27/2018 [facility] Hypochrom 1+ (06/27/18 11:49 AM) None Seen 06/27/2018 [facility] Basophils # 0.0 0.0 - 0.2 06/27/2018 [facility] Anisocyte 1+ *ABN* (06/27/18 11:49 AM) None Seen 06/27/2018 [facility] Microcyte 2+ *ABN* (06/27/18 11:49 AM) None Seen 06/27/2018 [facility] Lymphocytes # 2.4 1.0 - 5.5 06/27/2018 [facility] Monocytes # 0.4 0.0 - 0.8 06/27/2018 [facility] Eosinophils # 0.3 0.0 - 0.5 06/27/2018 [facility] Neutrophils # 3.7 1.5 - 8.1 06/27/2018 [facility] Monocytes 5.4 2.0 - 12.0 06/27/2018 [facility] Eosinophils 3.8 0.0 - 4.0 06/27/2018 [facility] Basophils 0.7 0.0 - 1.0 06/27/2018 [facility] Plt Morph Leeann l (06/27/18 11:49 AM) 06/27/2018 [facility] Lymphocytes 35.6 20.0 - 40.0 06/27/2018 [facility] Segs 54.5 45.0 - 75.0 06/27/2018 [facility] TOXICOLOGY Vanco Tr TND 2200 06/27/2018 [facility] TOXICOLOGY Vanco Tr 10.8 06/27/2018 [facility] IMMUNOLOGY Prealbumin 17.6 18.0 - 45.0 06/26/2018 [facility] TOXICOLOGY Vanco Tr TND 0600 06/25/2018 [facility] TOXICOLOGY Vanco Tr 4.3 06/25/2018 [facility] ELECTROLYTES AGAP 12.8 10.0 - 20.0 06/24/2018 [facility] ELECTROLYTES eGFR 72 06/24/2018 Result Comment: The eGFR is calculated using the CKD-EPI formula. In most young, healthy individuals the eGFR will be >90 mL/min/1.73m2. The eGFR declines with age. An eGFR of 60-89 may be normal in some populations, particularly the elderly, for whom the CKD-EPI formula has not been extensively validated. Use of the eGFR is not recommended in the following populations:

Individuals with unstable creatinine concentrations, including patients and those with serious co-morbid conditions.

Patients with extremes in muscle mass or diet.

The data above are obtained from the National Kidney Disease Education Program (NKDEP) which additionally recommends that when the eGFR is used in patients with extremes of body mass index for purposes of drug dosing, the eGFR should be multiplied by the estimated BMI. [facility] ELECTROLYTES Chloride Lvl 110 95 - 109 06/24/2018 [facility] ELECTROLYTES CO2 24 24 - 32 06/24/2018 [facility] ELECTROLYTES Calcium Lvl 9.1 8.5 - 10.5 06/24/2018 [facility] ELECTROLYTES Glucose Lvl 125 70 - 99 06/24/2018 [facility] ELECTROLYTES Creatinine Lvl 1.3 0 0.50 - 1.40 06/24/2018 [facility] ELECTROLYTES BUN 13 7 - 22 06/24/2018 [facility] ELECTROLYTES Potassium Lvl 3.8 3.5 - 5.1 06/24/2018 [facility] ELECTROLYTES Sodium Lvl 143 135 - 145 06/24/2018 [facility] Polychrom Moder ate *ABN* (06/24/18 11:11 AM) None Seen 06/24/2018 [facility] Microcyte 2+ *ABN* (06/24/18 11:11 AM) None Seen 06/24/2018 [facility] Anisocyte 1+ *ABN* (06/24/18 11:11 AM) None Seen 06/24/2018 [facility] Eosinophils 1.9 0.0 - 4.0 06/24/2018 [facility] Lymphocytes # 1.5 1.0 - 5.5 06/24/2018 [facility] Basophils 0.1 0.0 - 1.0 06/24/2018 [facility] Neutrophils # 5.3 1.5 - 8.1 06/24/2018 [facility] Basophils # 0.0 0.0 - 0.2 06/24/2018 [facility] Eosinophils # 0.1 0.0 - 0.5 06/24/2018 [facility] Monocytes # 0.3 0.0 - 0.8 06/24/2018 [facility] Segs 73.4 45.0 - 75.0 06/24/2018 [facility] HEMATOLOGY Plt Morph Leeann l (06/24/18 11:11 AM) 06/24/2018 [facility] HEMATOLOGY Lymphocytes 20.8 20.0 - 40.0 06/24/2018 [facility] HEMATOLOGY Monocytes 3.8 2.0 - 12.0 06/24/2018 [facility] MCH 23.6 27.0 - 31.0 06/24/2018 [facility] HEMATOLOGY MCV 73.1 80.0 - 94.0 06/24/2018 [facility] HEMATOLOGY Hct 29.5 42.0 - 54.0 06/24/2018 [facility] HEMATOLOGY RDW 26.4 11.5 - 14.5 06/24/2018 [facility] HEMATOLOGY MPV 8.4 7.4 - 10.4 06/24/2018 [facility] Platelet 374 133 - 450 06/24/2018 [facility] MCHC 32.3 32.0 - 36.0 06/24/2018 [facility] Hgb 9.5 14.0 - 18.0 06/24/2018 [facility] RBC 4.04 4.70 - 6.10 06/24/2018 [facility] WBC 7.2 3.7 - 10.4 06/24/2018 [facility] TOXICOLOGY Vanco Lvl 7.3 06/24/2018 [facility] TOXICOLOGY Vanco Lvl 19.3 06/23/2018 [facility] HEMATOLOGY Polychrom Moder ate *ABN* (06/22/18 4:33 AM) None Seen 06/22/2018 [facility] TOXICOLOGY Vanco Tr TND [id number] 530 06/22/2018 [facility] TOXICOLOGY Vanco Tr 25.7 06/22/2018 [facility] CHEM PANEL AST 12 0 - 37 06/21/2018 [facility] CHEM PANEL Bili Direct <0.1 0.0 - 0.3 06/21/2018 [facility] CHEM PANEL Alk Phos 95 39 - 136 06/21/2018 [facility] CHEM PANEL ALT 14 0 - 65 06/21/2018 [facility] CHEM PANEL Bili Total 0.3 0.2 - 1.3 06/21/2018 [facility] CHEM PANEL Total Protein 7.8 6.4 - 8.4 06/21/2018 [facility] CHEM PANEL A/G Ratio 0.5 0.7 - 1.6 06/21/2018 [facility] CHEM PANEL Globulin 5.3 2.7 - 4.2 06/21/2018 [facility] CHEM PANEL Albumin Lvl 2.5 3.5 - 5.0 06/21/2018 [facility] CHEM PANEL Bili Indirect Unabl e to Calculate 0.0 - 1.0 06/21/2018 [facility] CHEM PANEL Lactic Acid Lvl 1.0 0.5 - 2.2 06/21/2018 [facility] MEROPENEM:SUSC:PT:ISOLATE:ORDQN:NHUNG Gram Stain Report Rare WBC's No Organisms Seen 06/21/2018 [facility] MEROPENEM:SUSC:PT:ISOLATE:ORDQN:NHUNG Culture: Wound/Abscess w/Gram Stain Few Pseudomonas aeruginosa Few Acinetobacter baumannii This Report Contains A Correction Corrected Report Is: Culture In Progress Disregard Previous Report Of: Staphylococcus aureus Corrected Report Called To: Patria Moore, 06/21/2018 10:37 Read Back Ok . Reset culture and Gram stain 06/24/2018 21:06 Reset Gram stain same as initial result: Rare WBC'S , No organisms seen. Further culture results to follow. 06/21/2018 [facility] MEROPENEM:SUSC:PT:ISOLATE:ORDQN:NHUNG Acinetobacter baumannii Acinetobacter baumannii 06/21/2018 [facility] MEROPENEM:SUSC:PT:ISOLATE:ORDQN:NHUNG Pseudomonas aeruginosa Pseudomonas aeruginosa 06/21/2018 [facility] URINE AND STOOL UA Sq Epi None Seen 06/20/2018 [facility] URINE AND STOOL UA Urobilinogen <=1.0 mg/dL 0.1 - 1.0 06/20/2018 [facility] URINE AND STOOL UA Color Yellow 06/20/2018 [facility] URINE AND STOOL UA RBC 2 0 - 2 06/20/2018 [facility] URINE AND STOOL UA WBC 12 0 - 5 06/20/2018 [facility] URINE AND STOOL UA Nitrite Negative (06/20/18 4:48 PM) Negative 06/20/2018 [facility] URINE AND STOOL UA Blood Negative (06/20/18 4:48 PM) Negative 06/20/2018 [facility] URINE AND STOOL UA Leuk Est Moderate *ABN* (06/20/18 4:48 PM) Negative 06/20/2018 [facility] URINE AND STOOL UA Mucus Few /LPF None Seen /LPF 06/20/2018 [facility] URINE AND STOOL UA Bacteria Many /HPF None Seen /HPF 06/20/2018 [facility] URINE AND STOOL UA Ketones Negative mg/dL Negative mg/dL 06/20/2018 [facility] URINE AND STOOL UA Glucose Negative mg/dL Negative mg/dL 06/20/2018 [facility] URINE AND STOOL UA Protein 100 mg/dL Negative mg/dL 06/20/2018 [facility] URINE AND STOOL UA pH 6.0 5.0 - 8.0 06/20/2018 [facility] URINE AND STOOL UA Spec Grav 1.013 <=1.030 06/20/2018 [facility] URINE AND STOOL UA Turbidity Clear (06/20/18 4:48 PM) Clear 06/20/2018 [facility] URINE AND STOOL UA Bili Negative *NA* (06/20/18 4:48 PM) Negative 06/20/2018 [facility] CARDIAC ENZYMES Total CK 70 12 - 191 06/20/2018 [facility] CARDIAC ENZYMES Troponin-I <0.02 0.00 - 0.40 06/20/2018 [facility] CHEM PANEL Bili Total 0.3 0.2 - 1.3 06/20/2018 [facility] CHEM PANEL AST 12 0 - 37 06/20/2018 [facility] CHEM PANEL Alk Phos 108 39 - 136 06/20/2018 [facility] CHEM PANEL Total Protein 8.5 6.4 - 8.4 06/20/2018 [facility] CHEM PANEL ALT 19 0 - 65 06/20/2018 [facility] CHEM PANEL Albumin Lvl 2.9 3.5 - 5.0 06/20/2018 [facility] CHEM PANEL A/G Ratio 0.5 0.7 - 1.6 06/20/2018 [facility] CHEM PANEL B/C Ratio 15 6 - 25 06/20/2018 [facility] CHEM PANEL Globulin 5.6 2.7 - 4.2 06/20/2018 [facility] CHEM PANEL Lactic Acid Lvl 1.0 0.5 - 2.2 06/20/2018 [facility] CHEM PANEL Procalcitonin Lvl 0.06 0.00 - 0.10 06/20/2018 [facility] HEMATOLOGY PT 14.6 12.0 - 14.7 06/20/2018 [facility] HEMATOLOGY INR 1.14 0.85 - 1.17 06/20/2018 [facility] HEMATOLOGY PTT 34.9 22.9 - 35.8 06/20/2018 [facility] HEMATOLOGY Hypochrom 1+ (06/20/18 4:30 PM) None Seen 06/20/2018 [facility] GENTAMICIN:SUSC:PT:ISOLATE:ORDQN:NHUNG Culture: Urine >100,000 CFU/mL Klebsiella pneumoniae ssp pneumoniae Multi-drug Resistant Organism 06/20/2018 [facility] GENTAMICIN:SUSC:PT:ISOLATE:ORDQN:NHUNG Klebsiella pneumoniae ssp pneumoniae Klebsiella pneumoniae ssp pneumoniae 06/20/2018 [facility] CHEM PANEL Phosphorus 4.6 2.5 - 4.5 06/01/2018 [facility] CHEM PANEL Magnesium Lvl 2.1 1.8 - 2.4 06/01/2018 [facility] CHEM PANEL Phosphorus 4.9 2.5 - 4.5 06/01/2018 [facility] CHEM PANEL Magnesium Lvl 2.1 1.8 - 2.4 06/01/2018 [facility] CHEM PANEL eGFR 58 06/01/2018 Result Comment: The eGFR is calculated using the CKD-EPI formula. In most young, healthy individuals the eGFR will be >90 mL/min/1.73m2. The eGFR declines with age. An eGFR of 60-89 may be normal in some populations, particularly the elderly, for whom the CKD-EPI formula has not been extensively validated. Use of the eGFR is not recommended in the following populations:

Individuals with unstable creatinine concentrations, including patients and those with serious co-morbid conditions.

Patients with extremes in muscle mass or diet.

The data above are obtained from the National Kidney Disease Education Program (NKDEP) which additionally recommends that when the eGFR is used in patients with extremes of body mass index for purposes of drug dosing, the eGFR should be multiplied by the estimated BMI. [facility] CHEM PANEL Sodium Lvl 139 135 - 145 06/01/2018 [facility] CHEM PANEL Potassium Lvl 4.3 3.5 - 5.1 06/01/2018 [facility] CHEM PANEL Creatinine Lvl 1.54 0.50 - 1.40 06/01/2018 [facility] CHEM PANEL BUN 36 7 - 22 06/01/2018 [facility] CHEM PANEL Chloride Lvl 104 95 - 109 06/01/2018 [facility] CHEM PANEL CO2 19 24 - 32 06/01/2018 [facility] CHEM PANEL AGAP 20.3 10.0 - 20.0 06/01/2018 [facility] CHEM PANEL Calcium Lvl 9.1 8.5 - 10.5 06/01/2018 [facility] CHEM PANEL Glucose Lvl 73 70 - 99 06/01/2018 [facility] DRUG SCREEN U Propoxyph Scr Nega tive *NA* (06/01/18 12:13 AM) Negative 06/01/2018 [facility] DRUG SCREEN U Chelsie Scr Nega tive *NA* (06/01/18 12:13 AM) Negative 06/01/2018 [facility] DRUG SCREEN U Benzodiaz Scr Posi tive *ABN* (06/01/18 12:13 AM) Negative 06/01/2018 [facility] DRUG SCREEN U Cannab Scr Posi tive *ABN* (06/01/18 12:13 AM) Negative 06/01/2018 [facility] DRUG SCREEN U Opiate Scr Posi tive *ABN* (06/01/18 12:13 AM) Negative 06/01/2018 [facility] DRUG SCREEN U Cocaine Scr Nega tive *NA* (06/01/18 12:13 AM) Negative 06/01/2018 [facility] DRUG SCREEN U Amph Scr Nega tive *NA* (06/01/18 12:13 AM) Negative 06/01/2018 [facility] DRUG SCREEN U Phencyclidine Scr Nega tive *NA* (06/01/18 12:13 AM) Negative 06/01/2018 [facility] DRUG SCREEN U Methadone Scr Nega tive *NA* (06/01/18 12:13 AM) Negative 06/01/2018 [facility] DRUG SCREEN UDS Note See Note (06/01/18 12:13 AM) 06/01/2018 [facility] ELECTROLYTES AGAP 14.1 10.0 - 20.0 06/01/2018 [facility] ELECTROLYTES eGFR 56 06/01/2018 Result Comment: The eGFR is calculated using the CKD-EPI formula. In most young, healthy individuals the eGFR will be >90 mL/min/1.73m2. The eGFR declines with age. An eGFR of 60-89 may be normal in some populations, particularly the elderly, for whom the CKD-EPI formula has not been extensively validated. Use of the eGFR is not recommended in the following populations:

Individuals with unstable creatinine concentrations, including patients and those with serious co-morbid conditions.

Patients with extremes in muscle mass or diet.

The data above are obtained from the National Kidney Disease Education Program (NKDEP) which additionally recommends that when the eGFR is used in patients with extremes of body mass index for purposes of drug dosing, the eGFR should be multiplied by the estimated BMI. [facility] ELECTROLYTES BUN 35 7 - 22 06/01/2018 [facility] ELECTROLYTES Creatinine Lvl 1.6 0 0.50 - 1.40 06/01/2018 [facility] ELECTROLYTES Glucose Lvl 76 70 - 99 06/01/2018 [facility] ELECTROLYTES Sodium Lvl 136 135 - 145 06/01/2018 [facility] ELECTROLYTES Chloride Lvl 104 95 - 109 06/01/2018 [facility] ELECTROLYTES Potassium Lvl 4.1 3.5 - 5.1 06/01/2018 [facility] ELECTROLYTES CO2 22 24 - 32 06/01/2018 [facility] ELECTROLYTES Calcium Lvl 9.4 8.5 - 10.5 06/01/2018 [facility] HEMATOLOGY Platelet 389 133 - 450 06/01/2018 [facility] HEMATOLOGY MPV 8.1 7.4 - 10.4 06/01/2018 [facility] HEMATOLOGY WBC 10.1 3.7 - 10.4 06/01/2018 [facility] HEMATOLOGY RBC 4.35 4.70 - 6.10 06/01/2018 [facility] HEMATOLOGY Hgb 9.8 14.0 - 18.0 06/01/2018 [facility] HEMATOLOGY Hct 32.3 42.0 - 54.0 06/01/2018 [facility] HEMATOLOGY MCV 74.3 80.0 - 94.0 06/01/2018 [facility] HEMATOLOGY MCH 22.5 27.0 - 31.0 06/01/2018 [facility] HEMATOLOGY MCHC 30.2 32.0 - 36.0 06/01/2018 [facility] HEMATOLOGY RDW 21.8 11.5 - 14.5 06/01/2018 [facility] HEMATOLOGY Eosinophils # 0.3 0.0 - 0.5 06/01/2018 [facility] HEMATOLOGY Lymphocytes # 3.2 1.0 - 5.5 06/01/2018 [facility] HEMATOLOGY Monocytes # 1.3 0.0 - 0.8 06/01/2018 [facility] HEMATOLOGY Microcyte 1+ *ABN* (06/01/18 12:13 AM) None Seen 06/01/2018 [facility] HEMATOLOGY Anisocyte 1+ *ABN* (06/01/18 12:13 AM) None Seen 06/01/2018 [facility] HEMATOLOGY Basophils # 0.1 0.0 - 0.2 06/01/2018 [facility] HEMATOLOGY Neutrophils # 5.2 1.5 - 8.1 06/01/2018 [facility] HEMATOLOGY Basophils 1.0 0.0 - 1.0 06/01/2018 [facility] HEMATOLOGY Eosinophils 3.3 0.0 - 4.0 06/01/2018 [facility] HEMATOLOGY Lymphocytes 31.4 20.0 - 40.0 06/01/2018 [facility] HEMATOLOGY Segs 51.4 45.0 - 75.0 06/01/2018 [facility] HEMATOLOGY Monocytes 12.9 2.0 - 12.0 06/01/2018 [facility] PARATHYROID PROFILE Ca Norm WB 1.12 1.05 - 1.25 06/01/2018 [facility] PARATHYROID PROFILE Ca Ion WB 1.20 1.05 - 1.25 06/01/2018 [facility] TOXICOLOGY Salicylate Lvl 1.7 0.0 - 30.0 06/01/2018 [facility] TOXICOLOGY Acetaminoph Lvl <2 (06/01/18 12:13 AM) 10 - 06/01/2018 [facility] DRUG SCREEN U Phencyclidine Scr Nega tive *NA* (05/30/18 7:12 PM) Negative 05/31/2018 [facility] DRUG SCREEN U Chelsie Scr Nega tive *NA* (05/30/18 7:12 PM) Negative 05/31/2018 [facility] DRUG SCREEN UDS Note See Note (05/30/18 7:12 PM) 05/31/2018 [facility] DRUG SCREEN U Cocaine Scr Nega tive *NA* (05/30/18 7:12 PM) Negative 05/31/2018 [facility] DRUG SCREEN U Benzodiaz Scr Posi tive *ABN* (05/30/18 7:12 PM) Negative 05/31/2018 [facility] DRUG SCREEN U Amph Scr Nega tive *NA* (05/30/18 7:12 PM) Negative 05/31/2018 [facility] DRUG SCREEN U Opiate Scr Posi tive *ABN* (05/30/18 7:12 PM) Negative 05/31/2018 [facility] DRUG SCREEN U Cannab Scr Posi tive *ABN* (05/30/18 7:12 PM) Negative 05/31/2018 [facility] CARDIAC ENZYMES Troponin-I <0.02 0.00 - 0.40 05/30/2018 [facility] CHEM PANEL Phosphorus 4.2 2.5 - 4.5 05/30/2018 [facility] CHEM PANEL Magnesium Lvl 1.9 1.8 - 2.4 05/30/2018 [facility] ELECTROLYTES Sodium Lvl 137 135 - 145 05/30/2018 [facility] ELECTROLYTES BUN 40 7 - 22 05/30/2018 [facility] ELECTROLYTES Glucose Lvl 82 70 - 99 05/30/2018 [facility] ELECTROLYTES eGFR 64 05/30/2018 Result Comment: The eGFR is calculated using the CKD-EPI formula. In most young, healthy individuals the eGFR will be >90 mL/min/1.73m2. The eGFR declines with age. An eGFR of 60-89 may be normal in some populations, particularly the elderly, for whom the CKD-EPI formula has not been extensively validated. Use of the eGFR is not recommended in the following populations:

Individuals with unstable creatinine concentrations, including patients and those with serious co-morbid conditions.

Patients with extremes in muscle mass or diet.

The data above are obtained from the National Kidney Disease Education Program (NKDEP) which additionally recommends that when the eGFR is used in patients with extremes of body mass index for purposes of drug dosing, the eGFR should be multiplied by the estimated BMI. [facility] ELECTROLYTES AGAP 16.3 10.0 - 20.0 05/30/2018 [facility] ELECTROLYTES Calcium Lvl 9.2 8.5 - 10.5 05/30/2018 [facility] ELECTROLYTES CO2 20 24 - 32 05/30/2018 [facility] ELECTROLYTES Potassium Lvl 4.3 3.5 - 5.1 05/30/2018 [facility] ELECTROLYTES Creatinine Lvl 1.4 3 0.50 - 1.40 05/30/2018 [facility] ELECTROLYTES Chloride Lvl 105 95 - 109 05/30/2018 [facility] HEMATOLOGY Anisocyte 1+ *ABN* (05/30/18 6:08 PM) None Seen 05/30/2018 [facility] HEMATOLOGY Basophils # 0.2 0.0 - 0.2 05/30/2018 [facility] HEMATOLOGY Eosinophils # 0.3 0.0 - 0.5 05/30/2018 [facility] HEMATOLOGY Microcyte 2+ *ABN* (05/30/18 6:08 PM) None Seen 05/30/2018 [facility] HEMATOLOGY Monocytes # 0.9 0.0 - 0.8 05/30/2018 [facility] HEMATOLOGY Lymphocytes 23.1 20.0 - 40.0 05/30/2018 [facility] HEMATOLOGY Segs 65.4 45.0 - 75.0 05/30/2018 [facility] HEMATOLOGY Neutrophils # 7.9 1.5 - 8.1 05/30/2018 [facility] HEMATOLOGY Lymphocytes # 2.8 1.0 - 5.5 05/30/2018 [facility] HEMATOLOGY Basophils 1.3 0.0 - 1.0 05/30/2018 [facility] HEMATOLOGY Eosinophils 2.6 0.0 - 4.0 05/30/2018 [facility] HEMATOLOGY Monocytes 7.6 2.0 - 12.0 05/30/2018 [facility] HEMATOLOGY MPV 8.0 7.4 - 10.4 05/30/2018 [facility] HEMATOLOGY Platelet 466 133 - 450 05/30/2018 [facility] HEMATOLOGY MCHC 31.1 32.0 - 36.0 05/30/2018 [facility] HEMATOLOGY MCH 22.2 27.0 - 31.0 05/30/2018 [facility] HEMATOLOGY RDW 22.1 11.5 - 14.5 05/30/2018 [facility] HEMATOLOGY MCV 71.2 80.0 - 94.0 05/30/2018 [facility] HEMATOLOGY Hct 30.9 42.0 - 54.0 05/30/2018 [facility] HEMATOLOGY RBC 4.34 4.70 - 6.10 05/30/2018 [facility] HEMATOLOGY Hgb 9.6 14.0 - 18.0 05/30/2018 [facility] HEMATOLOGY WBC 12.1 3.7 - 10.4 05/30/2018 [facility] HEMATOLOGY WBC 7.4 3.7 - 10.4 05/29/2018 [facility] HEMATOLOGY MCV 74.3 80.0 - 94.0 05/29/2018 [facility] HEMATOLOGY Hct 29.5 42.0 - 54.0 05/29/2018 [facility] HEMATOLOGY Hgb 9.3 14.0 - 18.0 05/29/2018 [facility] HEMATOLOGY RBC 3.97 4.70 - 6.10 05/29/2018 [facility] HEMATOLOGY MCH 23.5 27.0 - 31.0 05/29/2018 [facility] HEMATOLOGY MPV 8.1 7.4 - 10.4 05/29/2018 [facility] HEMATOLOGY Platelet 488 133 - 450 05/29/2018 [facility] HEMATOLOGY RDW 22.0 11.5 - 14.5 05/29/2018 [facility] HEMATOLOGY MCHC 31.6 32.0 - 36.0 05/29/2018 [facility] HEMATOLOGY Segs 51.3 45.0 - 75.0 05/29/2018 [facility] HEMATOLOGY Monocytes 6.5 2.0 - 12.0 05/29/2018 [facility] HEMATOLOGY Lymphocytes 37.5 20.0 - 40.0 05/29/2018 [facility] HEMATOLOGY Eosinophils 4.5 0.0 - 4.0 05/29/2018 [facility] HEMATOLOGY Microcyte 1+ *ABN* (05/29/18 1:42 AM) None Seen 05/29/2018 [facility] HEMATOLOGY Anisocyte 1+ *ABN* (05/29/18 1:42 AM) None Seen 05/29/2018 [facility] HEMATOLOGY Neutrophils # 3.8 1.5 - 8.1 05/29/2018 [facility] HEMATOLOGY Basophils 0.2 0.0 - 1.0 05/29/2018 [facility] HEMATOLOGY Lymphocytes # 2.8 1.0 - 5.5 05/29/2018 [facility] HEMATOLOGY Eosinophils # 0.3 0.0 - 0.5 05/29/2018 [facility] HEMATOLOGY Monocytes # 0.5 0.0 - 0.8 05/29/2018 [facility] HEMATOLOGY Basophils # 0.1 0.0 - 0.2 05/27/2018 [facility] IMMUNOLOGY HCV Genotype Comment Comm ent 05/27/2018 Result Comment:
This test was ruth singer and its performance characteristics
determined by [facility]. It has not been cleared or approved
by the [place] Food and Drug Administration.

The FDA has determined that such clearance or approval is
not necessary. This test is used for clinical purposes. It
should not be regarded as investigational or for research.
Performed At: [facility]
[address], [place] [id number]
Patricia Condon MD Ph:[phone] [facility] IMMUNOLOGY HCV Genotype 2b 05/27/2018 [facility] MOLECULAR DIAGNOSTIC HCV RNA Log10 5.2 05/27/2018 [facility] MOLECULAR DIAGNOSTIC HCV RNA VirLoad [id number] 05/27/2018 [facility] TOXICOLOGY Tobra Tr TND 2330 05/27/2018 [facility] TOXICOLOGY Tobra Tr 1.9 05/27/2018 [facility] TOXICOLOGY Tobra Lvl 11.4 05/26/2018 [facility] PARATHYROID PROFILE Ca Norm WB 1.11 1.05 - 1.25 05/26/2018 [facility] PARATHYROID PROFILE Ca Ion WB 1.11 1.05 - 1.25 05/26/2018 [facility] Culture: Urine No Growth 05/25/2018 [facility] CHEM PANEL Lactic Acid Lvl 1.2 0.5 - 2.2 05/25/2018 [facility] HEMATOLOGY INR 1.11 0.85 - 1.17 05/25/2018 [facility] HEMATOLOGY PTT 34.8 22.9 - 35.8 05/25/2018 [facility] HEMATOLOGY PT 14.3 12.0 - 14.7 05/25/2018 [facility] URINE AND STOOL UA Protein 50 mg/dL Negative mg/dL 05/25/2018 [facility] URINE AND STOOL UA Glucose Negative mg/dL Negative mg/dL 05/25/[address] [facility] [place] [place] URINE AND STOOL UA pH 7.5 5.0 - 8.0 05/25/2018 [facility] URINE AND STOOL UA Ketones Trace mg/dL Negative mg/dL 05/25/2018 [facility] URINE AND STOOL UA Bili Negative *NA* (05/25/18 1:26 AM) Negative 05/25/2018 [facility] URINE AND STOOL UA Color Light Yellow *NA* (05/25/18 1:26 AM) Yellow 05/25/2018 [facility] URINE AND STOOL UA Turbidity Clear (05/25/18 1:26 AM) Clear 05/25/2018 [facility] URINE AND STOOL UA Spec Grav 1.009 <=1.030 05/25/2018 [facility] URINE AND STOOL UA Urobilinogen <=1.0 mg/dL 0.1 - 1.0 05/25/2018 [facility] URINE AND STOOL UA WBC 16 0 - 5 05/25/2018 [facility] URINE AND STOOL UA Bacteria Occasional /HPF None Seen /HPF 05/25/[address] [facility] [place] [place] URINE AND STOOL UA RBC 1 0 - 2 05/25/2018 [facility] URINE AND STOOL UA Nitrite Negative (05/25/18 1:26 AM) Negative 05/25/2018 [facility] URINE AND STOOL UA Leuk Est Small *ABN* (05/25/18 1:26 AM) Negative 05/25/2018 [facility] URINE AND STOOL UA Blood Negative (05/25/18 1:26 AM) Negative 05/25/2018 [facility] URINE AND STOOL UA Sq Epi None Seen 05/25/2018 [facility] URINE AND STOOL UA Clay Yeast Occasional /HPF None Seen /HPF 05/25/[address] [facility] [place] [place] DRUG SCREEN UDS Note See Note (05/24/18 8:37 PM) 05/25/2018 [facility] DRUG SCREEN U Benzodiaz Scr Nega tive *NA* (05/24/18 8:37 PM) Negative 05/25/2018 [facility] DRUG SCREEN U Phencyclidine Scr Nega tive *NA* (05/24/18 8:37 PM) Negative 05/25/2018 [facility] DRUG SCREEN U Cannab Scr Posi tive *ABN* (05/24/18 8:37 PM) Negative 05/25/2018 [facility] DRUG SCREEN U Cocaine Scr Nega tive *NA* (05/24/18 8:37 PM) Negative 05/25/2018 [facility] DRUG SCREEN U Opiate Scr Posi tive *ABN* (05/24/18 8:37 PM) Negative 05/25/2018 [facility] DRUG SCREEN U Chelsie Scr Nega tive *NA* (05/24/18 8:37 PM) Negative 05/25/2018 [facility] DRUG SCREEN U Amph Scr Nega tive *NA* (05/24/18 8:37 PM) Negative 05/25/2018 [facility] AMINO ACID MMA Qnt 312 0 - 378 05/23/2018 [facility] AMINO ACID Disclaimer (Org Acid) Com ment 05/23/2018 Result Comment:
This test was aliciacase singer and its performance characteristics
determined by [facility]. It has not been cleared or
approved by the Food and Drug Administration.
Performed At: [facility]
[address] [place] [id number]
Patricia Condon MD Ph:[phone] [facility] ANEMIA STUDY UIBC 175 110 - 370 05/23/2018 [facility] ANEMIA STUDY % Satur Fe 12 12 - 57 05/23/2018 [facility] ANEMIA STUDY Iron 25 45 - 160 05/23/2018 [facility] ANEMIA STUDY TIBC 200 228 - 428 05/23/2018 [facility] ANEMIA STUDY Ferritin Lvl 90 22 - 275 05/23/2018 [facility] ANEMIA STUDY Folate Lvl 20.1 >=3.0 ng/mL 05/23/2018 [facility] ANEMIA STUDY Vitamin B12 Lvl 704 254 - 1320 05/23/2018 [facility] BLOOD BANK RESULTS ABO/Rh A POS 05/23/2018 [facility] BLOOD BANK RESULTS Antibody Scrn Negative (05/23/18 9:50 AM) 05/23/2018 [facility] CHEM PANEL LDH 137 98 - 192 05/23/2018 [facility] CHEM PANEL Bili Direct <0.1 0.0 - 0.3 05/23/2018 [facility] CHEM PANEL Bili Total 0.2 0.2 - 1.3 05/23/2018 [facility] CHEM PANEL Bili Indirect Unabl e to Calculate 0.0 - 1.0 05/23/[address] [facility] [place] [place] HEMATOLOGY Retic Auto 2.2 0.5 - 1.5 05/23/2018 [facility] IMMUNOLOGY Homocyst Tot 11.0 3.7 - 13.9 05/23/2018 [facility] BLOOD BANK RESULTS RBC product Product available (05/23/18 9:19 AM) 05/23/2018 [facility] SPECIAL CHEMISTRY Hgb A1C 5.6 <=5.6 % 05/22/2018 [facility] URINE AND STOOL UA Protein 30 mg/dL Negative mg/dL 05/21/2018 [facility] URINE AND STOOL UA pH 6.5 5.0 - 8.0 05/21/2018 [facility] URINE AND STOOL UA Spec Grav <=1.005 (05/21/18 12:59 PM) <=1.030 05/21/2018 [facility] URINE AND STOOL UA Bili Negative (05/21/18 12:59 PM) Negative 05/21/2018 [facility] URINE AND STOOL UA Ketones Trace *ABN* (05/21/18 12:59 PM) Negative 05/21/2018 [facility] URINE AND STOOL UA Glucose Negative (05/21/18 12:59 PM) Negative 05/21/2018 [facility] URINE AND STOOL UA Nitrite Negative (05/21/18 12:59 PM) Negative 05/21/2018 [facility] URINE AND STOOL UA Blood Small *ABN* (05/21/18 12:59 PM) Negative 05/21/2018 [facility] URINE AND STOOL UA Urobilinogen 0.2 0.1 - 1.0 05/21/2018 [facility] URINE AND STOOL UA Leuk Est Negative (05/21/18 12:59 PM) Negative 05/21/2018 [facility] URINE AND STOOL UA Color Yellow (05/21/18 12:59 PM) Yellow 05/21/2018 [facility] URINE AND STOOL UA Turbidity Clear (05/21/18 12:59 PM) Clear 05/21/2018 [facility] URINE AND STOOL UA Bacteria None Seen (05/21/18 12:59 PM) None Seen 05/21/2018 [facility] URINE AND STOOL UA RBC 0-2 /HPF 0 - 2 05/21/2018 [facility] URINE AND STOOL UA WBC 0-2 /HPF None Seen /HPF 05/21/2018 [facility] URINE AND STOOL UA Sq Epi None Seen (05/21/18 12:59 PM) Few 05/21/2018 [facility] CARDIAC ENZYMES Total CK 54 12 - 191 05/21/2018 [facility] CHEM PANEL Lactic Acid Lvl 0.7 0.5 - 2.2 05/21/2018 [facility] CHEM PANEL Procalcitonin Lvl 0.30 0.00 - 0.10 05/21/2018 [facility] CHEM PANEL ALT 26 0 - 65 05/21/2018 [facility] CHEM PANEL AST 19 0 - 37 05/21/2018 [facility] CHEM PANEL Albumin Lvl 2.4 3.5 - 5.0 05/21/2018 [facility] CHEM PANEL Alk Phos 109 39 - 136 05/21/2018 [facility] CHEM PANEL Bili Total 0.3 0.2 - 1.3 05/21/2018 [facility] CHEM PANEL Total Protein 8.6 6.4 - 8.4 05/21/2018 [facility] CHEM PANEL B/C Ratio 14 6 - 25 05/21/2018 [facility] CHEM PANEL Globulin 6.2 2.7 - 4.2 05/21/2018 [facility] CHEM PANEL A/G Ratio 0.4 0.7 - 1.6 05/21/2018 [facility] CHEM PANEL Lipase Lvl 45 73 - 393 05/21/2018 [facility] HEMATOLOGY Sed Rate >100 mm/hr 0 - 15 05/21/2018 [facility] HEMATOLOGY INR 1.17 0.85 - 1.17 05/21/2018 [facility] HEMATOLOGY PT 15.0 12.0 - 14.7 05/21/2018 [facility] HEMATOLOGY PTT 38.8 22.9 - 35.8 05/21/2018 [facility] IMMUNOLOGY C-REACTIVE PROTEIN 158.0 <=2.9 mg/L 05/21/2018 [facility] CARDIAC ENZYMES Troponin-I <0.02 ng/mL 0.00 - 0.40 05/21/2018 [facility] IMMUNOLOGY CDC HIV 4th GEN Negat pavel *NA* (05/21/18 10:29 AM) Negative 05/21/2018 [facility] MOLECULAR DIAGNOSTIC vanB Vancomycin Resistance Not Detected (05/21/18 10:29 AM) Not Detect ed 05/21/2018 [facility] MOLECULAR DIAGNOSTIC Listeria spp. Not Detected (05/21/18 10:29 AM) Not Detect ed 05/21/2018 [facility] MOLECULAR DIAGNOSTIC Staphylococcus spp. Not Detected (05/21/18 10:29 AM) Not Detect ed 05/21/2018 [facility] MOLECULAR DIAGNOSTIC E. faecalis Detected *ABN* (05/21/18 10:29 AM) Not Detect ed 05/21/2018 [facility] MOLECULAR DIAGNOSTIC E. faecium Detected *ABN* (05/21/18 10:29 AM) Not Detect ed 05/21/2018 [facility] MOLECULAR DIAGNOSTIC Casi Vancomycin Resistance Detected *ABN* (05/21/18 10:29 AM) Not Detect ed 05/21/2018 [facility] MOLECULAR DIAGNOSTIC mecA Methicilli n Resistance Not Detected (05/21/18 10:29 AM) Not Detect ed 05/21/2018 [facility] MOLECULAR DIAGNOSTIC Streptococcus s pp. Not Detected (05/21/18 10:29 AM) Not Detect ed 05/21/2018 [facility] MOLECULAR DIAGNOSTIC S. pyogenes Not Detected (05/21/18 10:29 AM) Not Detect ed 05/21/2018 [facility] MOLECULAR DIAGNOSTIC S. epidermidis Not Detected (05/21/18 10:29 AM) Not Detect ed 05/21/2018 [facility] MOLECULAR DIAGNOSTIC S. agalactiae Not Detected (05/21/18 10:29 AM) Not Detect ed 05/21/2018 [facility] MOLECULAR DIAGNOSTIC S. pneumoniae Not Detected (05/21/18 10:29 AM) Not Detect ed 05/21/2018 [facility] MOLECULAR DIAGNOSTIC S. anginosus gr p Not Detected (05/21/18 10:29 AM) Not Detect ed 05/21/2018 [facility] MOLECULAR DIAGNOSTIC S. lugdunensis Not Detected (05/21/18 10:29 AM) Not Detect ed 05/21/2018 [facility] MOLECULAR DIAGNOSTIC S. aureus Not Detected (05/21/18 10:29 AM) Not Detect ed 05/21/2018 [facility] CHEM PANEL eGFR 103 03/19/2018 Result Comment: The eGFR is calculated using the CKD-EPI formula. In most young, healthy individuals the eGFR will be >90 mL/min/1.73m2. The eGFR declines with age. An eGFR of 60-89 may be normal in some populations, particularly the elderly, for whom the CKD-EPI formula has not been extensively validated. Use of the eGFR is not recommended in the following populations:

Individuals with unstable creatinine concentrations, including patients and those with serious co-morbid conditions.

Patients with extremes in muscle mass or diet.

The data above are obtained from the National Kidney Disease Education Program (NKDEP) which additionally recommends that when the eGFR is used in patients with extremes of body mass index for purposes of drug dosing, the eGFR should be multiplied by the estimated BMI. [facility] CHEM PANEL Chloride Lvl 108 95 - 109 03/19/2018 [facility] CHEM PANEL Calcium Lvl 8.6 8.5 - 10.5 03/19/2018 [facility] CHEM PANEL CO2 25 24 - 32 03/19/2018 [facility] CHEM PANEL Creatinine Lvl 0.96 0.50 - 1.40 03/19/2018 [facility] CHEM PANEL Glucose Lvl 85 70 - 99 03/19/2018 [facility] CHEM PANEL BUN 15 7 - 22 03/19/2018 [facility] CHEM PANEL Sodium Lvl 142 135 - 145 03/19/2018 [facility] CHEM PANEL Potassium Lvl 4.0 3.5 - 5.1 03/19/2018 [facility] CHEM PANEL AGAP 13.0 10.0 - 20.0 03/19/2018 [facility] HEMATOLOGY WBC 8.8 3.7 - 10.4 03/19/2018 [facility] HEMATOLOGY Hct 27.3 42.0 - 54.0 03/19/2018 [facility] HEMATOLOGY RBC 3.69 4.70 - 6.10 03/19/2018 [facility] HEMATOLOGY MCV 74.1 80.0 - 94.0 03/19/2018 [facility] HEMATOLOGY Hgb 8.8 14.0 - 18.0 03/19/2018 [facility] HEMATOLOGY MCH 23.8 27.0 - 31.0 03/19/2018 [facility] HEMATOLOGY MCHC 32.2 32.0 - 36.0 03/19/2018 [facility] HEMATOLOGY MPV 7.9 7.4 - 10.4 03/19/2018 [facility] HEMATOLOGY Platelet 433 133 - 450 03/19/2018 [facility] HEMATOLOGY RDW 19.2 11.5 - 14.5 03/19/2018 [facility] HEMATOLOGY Monocytes 6.9 2.0 - 12.0 03/19/2018 [facility] HEMATOLOGY Lymphocytes # 2.8 1.0 - 5.5 03/19/2018 [facility] HEMATOLOGY Neutrophils # 5.2 1.5 - 8.1 03/19/2018 [facility] HEMATOLOGY Basophils 0.5 0.0 - 1.0 03/19/2018 [facility] HEMATOLOGY Eosinophils 1.0 0.0 - 4.0 03/19/2018 [facility] HEMATOLOGY Segs 59.2 45.0 - 75.0 03/19/2018 [facility] HEMATOLOGY Lymphocytes 32.4 20.0 - 40.0 03/19/2018 [facility] HEMATOLOGY Microcyte 1+ *ABN* (03/19/18 4:11 AM) None Seen 03/19/2018 [facility] HEMATOLOGY Eosinophils # 0.1 0.0 - 0.5 03/19/2018 [facility] HEMATOLOGY Monocytes # 0.6 0.0 - 0.8 03/19/2018 [facility] CHEM PANEL eGFR 100 03/18/2018 Result Comment: The eGFR is calculated using the CKD-EPI formula. In most young, healthy individuals the eGFR will be >90 mL/min/1.73m2. The eGFR declines with age. An eGFR of 60-89 may be normal in some populations, particularly the elderly, for whom the CKD-EPI formula has not been extensively validated. Use of the eGFR is not recommended in the following populations:

Individuals with unstable creatinine concentrations, including patients and those with serious co-morbid conditions.

Patients with extremes in muscle mass or diet.

The data above are obtained from the National Kidney Disease Education Program (NKDEP) which additionally recommends that when the eGFR is used in patients with extremes of body mass index for purposes of drug dosing, the eGFR should be multiplied by the estimated BMI. [facility] CHEM PANEL Bili Total 0.4 0.2 - 1.3 03/18/2018 [facility] CHEM PANEL Chloride Lvl 109 95 - 109 03/18/2018 [facility] CHEM PANEL CO2 25 24 - 32 03/18/2018 [facility] CHEM PANEL Calcium Lvl 8.6 8.5 - 10.5 03/18/2018 [facility] CHEM PANEL AST 19 0 - 37 03/18/2018 [facility] CHEM PANEL Alk Phos 132 39 - 136 03/18/2018 [facility] CHEM PANEL Total Protein 7.5 6.4 - 8.4 03/18/2018 [facility] CHEM PANEL Albumin Lvl 2.5 3.5 - 5.0 03/18/2018 [facility] CHEM PANEL ALT 36 0 - 65 03/18/2018 [facility] CHEM PANEL Creatinine Lvl 0.98 0.50 - 1.40 03/18/2018 [facility] CHEM PANEL Sodium Lvl 141 135 - 145 03/18/2018 [facility] CHEM PANEL Potassium Lvl 5.0 3.5 - 5.1 03/18/2018 [facility] CHEM PANEL Glucose Lvl 170 70 - 99 03/18/2018 [facility] CHEM PANEL BUN 15 7 - 22 03/18/2018 [facility] CHEM PANEL AGAP 12.0 10.0 - 20.0 03/18/2018 [facility] CHEM PANEL B/C Ratio 15 6 - 25 03/18/2018 [facility] CHEM PANEL Globulin 5.0 2.7 - 4.2 03/18/2018 [facility] CHEM PANEL A/G Ratio 0.5 0.7 - 1.6 03/18/2018 [facility] HEMATOLOGY Monocytes # 0.2 0.0 - 0.8 03/18/2018 [facility] HEMATOLOGY Microcyte 1+ *ABN* (03/18/18 3:13 AM) None Seen 03/18/2018 [facility] HEMATOLOGY Lymphocytes # 0.8 1.0 - 5.5 03/18/2018 [facility] HEMATOLOGY Neutrophils # 6.1 1.5 - 8.1 03/18/2018 [facility] HEMATOLOGY Monocytes 2.3 2.0 - 12.0 03/18/2018 [facility] HEMATOLOGY Lymphocytes 10.7 20.0 - 40.0 03/18/2018 [facility] HEMATOLOGY Basophils 0.1 0.0 - 1.0 03/18/2018 [facility] HEMATOLOGY Segs 86.9 45.0 - 75.0 03/18/2018 [facility] HEMATOLOGY Platelet 450 133 - 450 03/18/2018 [facility] HEMATOLOGY RDW 18.8 11.5 - 14.5 03/18/2018 [facility] HEMATOLOGY MCV 73.0 80.0 - 94.0 03/18/2018 [facility] HEMATOLOGY MPV 7.6 7.4 - 10.4 03/18/2018 [facility] HEMATOLOGY RBC 3.79 4.70 - 6.10 03/18/2018 [facility] HEMATOLOGY WBC 7.0 3.7 - 10.4 03/18/2018 [facility] HEMATOLOGY MCHC 31.9 32.0 - 36.0 03/18/2018 [facility] HEMATOLOGY MCH 23.3 27.0 - 31.0 03/18/2018 [facility] HEMATOLOGY Hct 27.7 42.0 - 54.0 03/18/2018 [facility] HEMATOLOGY Hgb 8.8 14.0 - 18.0 03/18/2018 [facility] TOXICOLOGY Vanco Tr TND 2300 03/18/2018 [facility] TOXICOLOGY Vanco Tr 31.3 03/18/2018 [facility] TOXICOLOGY Vanco Tr 55.5 03/17/2018 [facility] TOXICOLOGY Vanco Tr TND 1100 03/17/2018 [facility] CEFTAZIDIME:SUSC:PT:ISOLATE:ORDQN:NHUNG Gram Stain Report Moderate WBC's No Squamous Epithelial Cells; No Organisms Seen 03/16/2018 [facility] CEFTAZIDIME:SUSC:PT:ISOLATE:ORDQN:NHUNG Culture: Wound/Abscess w/Gram Stain Many Acinetobacter baumannii , Multi-arden g Resistant Organism Rare Alpha Streptococcus, Not Enterococcus 03/16/2018 [facility] CEFTAZIDIME:SUSC:PT:ISOLATE:ORDQN:NHUNG Acinetobacter baumannii Acinetobacter baumannii 03/16/2018 [facility] CHEM PANEL B/C Ratio 12 6 - 25 03/16/2018 [facility] CHEM PANEL Globulin 5.0 2.7 - 4.2 03/16/2018 [facility] CHEM PANEL A/G Ratio 0.5 0.7 - 1.6 03/16/2018 [facility] CHEM PANEL AGAP 11.0 10.0 - 20.0 03/16/2018 [facility] CHEM PANEL eGFR 77 03/16/2018 Result Comment: The eGFR is calculated using the CKD-EPI formula. In most young, healthy individuals the eGFR will be >90 mL/min/1.73m2. The eGFR declines with age. An eGFR of 60-89 may be normal in some populations, particularly the elderly, for whom the CKD-EPI formula has not been extensively validated. Use of the eGFR is not recommended in the following populations:

Individuals with unstable creatinine concentrations, including patients and those with serious co-morbid conditions.

Patients with extremes in muscle mass or diet.

The data above are obtained from the National Kidney Disease Education Program (NKDEP) which additionally recommends that when the eGFR is used in patients with extremes of body mass index for purposes of drug dosing, the eGFR should be multiplied by the estimated BMI. [facility] CHEM PANEL Total Protein 7.5 6.4 - 8.4 03/16/2018 [facility] CHEM PANEL Calcium Lvl 8.6 8.5 - 10.5 03/16/2018 [facility] CHEM PANEL CO2 25 24 - 32 03/16/2018 [facility] CHEM PANEL Albumin Lvl 2.5 3.5 - 5.0 03/16/2018 [facility] CHEM PANEL ALT 31 0 - 65 03/16/2018 [facility] CHEM PANEL Bili Total 0.3 0.2 - 1.3 03/16/2018 [facility] CHEM PANEL Alk Phos 129 39 - 136 03/16/2018 [facility] CHEM PANEL Chloride Lvl 106 95 - 109 03/16/2018 [facility] CHEM PANEL Potassium Lvl 4.0 3.5 - 5.1 03/16/2018 [facility] CHEM PANEL Creatinine Lvl 1.23 0.50 - 1.40 03/16/2018 [facility] CHEM PANEL BUN 15 7 - 22 03/16/2018 [facility] CHEM PANEL AST 23 0 - 37 03/16/2018 [facility] CHEM PANEL Glucose Lvl 80 70 - 99 03/16/2018 [facility] CHEM PANEL Sodium Lvl 138 135 - 145 03/16/2018 [facility] HEMATOLOGY Hgb 8.1 14.0 - 18.0 03/16/2018 [facility] HEMATOLOGY Hct 26.4 42.0 - 54.0 03/16/2018 [facility] HEMATOLOGY MCV 74.5 80.0 - 94.0 03/16/2018 [facility] HEMATOLOGY MCH 23.0 27.0 - 31.0 03/16/2018 [facility] HEMATOLOGY RDW 19.0 11.5 - 14.5 03/16/2018 [facility] HEMATOLOGY Platelet 382 133 - 450 03/16/2018 [facility] HEMATOLOGY MPV 8.0 7.4 - 10.4 03/16/2018 [facility] HEMATOLOGY MCHC 30.8 32.0 - 36.0 03/16/2018 [facility] HEMATOLOGY WBC 7.3 3.7 - 10.4 03/16/2018 [facility] HEMATOLOGY RBC 3.54 4.70 - 6.10 03/16/2018 [facility] HEMATOLOGY Microcyte 1+ *ABN* (03/16/18 3:53 AM) None Seen 03/16/2018 [facility] HEMATOLOGY Eosinophils 4.2 0.0 - 4.0 03/16/2018 [facility] HEMATOLOGY Basophils 1.0 0.0 - 1.0 03/16/2018 [facility] HEMATOLOGY Eosinophils # 0.3 0.0 - 0.5 03/16/2018 [facility] HEMATOLOGY Basophils # 0.1 0.0 - 0.2 03/16/2018 [facility] HEMATOLOGY Segs 59.4 45.0 - 75.0 03/16/2018 [facility] HEMATOLOGY Lymphocytes 28.6 20.0 - 40.0 03/16/2018 [facility] HEMATOLOGY Monocytes 6.8 2.0 - 12.0 03/16/2018 [facility] HEMATOLOGY Neutrophils # 4.3 1.5 - 8.1 03/16/2018 [facility] HEMATOLOGY Lymphocytes # 2.1 1.0 - 5.5 03/16/2018 [facility] HEMATOLOGY Monocytes # 0.5 0.0 - 0.8 03/16/2018 [facility] IMMUNOLOGY C-REACTIVE PROTEIN 77.5 <=2.9 mg/L 03/16/2018 [facility] HEMATOLOGY Eosinophils # 0.3 0.0 - 0.5 03/15/2018 [facility] HEMATOLOGY Basophils # 0.1 0.0 - 0.2 03/15/2018 [facility] HEMATOLOGY Eosinophils 3.2 0.0 - 4.0 03/15/2018 [facility] TOXICOLOGY Ethanol Lvl <3 03/15/2018 [facility] TOXICOLOGY Etoh (%) <0.003 03/15/2018 [facility] HEMATOLOGY PTT 34.7 22.9 - 35.8 03/15/2018 [facility] HEMATOLOGY INR 1.07 0.85 - 1.17 03/15/2018 [facility] HEMATOLOGY PT 13.9 12.0 - 14.7 03/15/2018 [facility] DRUG SCREEN UDS Note See Note (03/14/18 9:33 PM) 03/15/2018 [facility] DRUG SCREEN U Phencyclidine Scr Nega tive *NA* (03/14/18 9:33 PM) Negative 03/15/2018 [facility] DRUG SCREEN U Cocaine Scr Nega tive *NA* (03/14/18 9:33 PM) Negative 03/15/2018 [facility] DRUG SCREEN U Cannab Scr Posi tive *ABN* (03/14/18 9:33 PM) Negative 03/15/2018 [facility] DRUG SCREEN U Opiate Scr Posi tive *ABN* (03/14/18 9:33 PM) Negative 03/15/2018 [facility] DRUG SCREEN U Benzodiaz Scr Posi tive *ABN* (03/14/18 9:33 PM) Negative 03/15/2018 [facility] DRUG SCREEN U Chelsei Scr Nega tive *NA* (03/14/18 9:33 PM) Negative 03/15/2018 [facility] DRUG SCREEN U Amph Scr Nega tive *NA* (03/14/18 9:33 PM) Negative 03/15/2018 [facility] URINE AND STOOL UA Hyal Cast 6 0 - 2 03/15/2018 [facility] URINE AND STOOL UA Tr Phos Michelle Occasional /HPF None Seen /HPF 03/15/2018 [facility] URINE AND STOOL UA Sq Epi None Seen 03/15/2018 [facility] URINE AND STOOL UA Urobilinogen <=1.0 mg/dL 0.1 - 1.0 03/15/2018 [facility] URINE AND STOOL UA Ketones Negative 03/15/2018 [facility] URINE AND STOOL UA Color Ken *ABN* (03/14/18 9:33 PM) Yellow 03/15/2018 [facility] URINE AND STOOL UA Turbidity Marked *ABN* (03/14/18 9:33 PM) Clear 03/15/2018 [facility] URINE AND STOOL UA Spec Grav 1.014 <=1.030 03/15/2018 [facility] URINE AND STOOL UA pH 7.0 5.0 - 8.0 03/15/2018 [facility] URINE AND STOOL UA Bacteria Many /HPF None Seen /HPF 03/15/2018 [facility] URINE AND STOOL UA RBC 8 0 - 2 03/15/2018 [facility] URINE AND STOOL UA Amorph Michelle Moderate /HPF None Seen /HPF 03/15/2018 [facility] URINE AND STOOL UA Mucus Few /LPF None Seen /LPF 03/15/2018 [facility] URINE AND STOOL UA Nitrite Positive *ABN* (03/14/18 9:33 PM) Negative 03/15/2018 [facility] URINE AND STOOL UA Leuk Est Large *ABN* (03/14/18 9:33 PM) Negative 03/15/2018 [facility] URINE AND STOOL UA WBC 45 0 - 5 03/15/2018 [facility] URINE AND STOOL UA Glucose Negative mg/dL Negative mg/dL 03/15/2018 [facility] URINE AND STOOL UA Protein 100 mg/dL Negative mg/dL 03/15/2018 [facility] URINE AND STOOL UA Blood Negative (03/14/18 9:33 PM) Negative 03/15/2018 [facility] URINE AND STOOL UA Bili Negative *NA* (03/14/18 9:33 PM) Negative 03/15/2018 [facility] ERTAPENEM:SUSC:PT:ISOLATE:ORDQN:NHUNG Culture: Urine >100,000 CFU/mL Providencia stuartii , Multi-drug Resistant Organism >100,000 CFU/mL Klebsiella pneumoniae ssp pneumoniae , Multi-drug Resistant Organism 03/15/2018 [facility] ERTAPENEM:SUSC:PT:ISOLATE:ORDQN:NHUNG Klebsiella pneumoniae ssp pneumoniae Klebsiella pneumoniae ssp pneumoniae 03/15/2018 [facility] ERTAPENEM:SUSC:PT:ISOLATE:ORDQN:NHUNG Providencia stuartii Providencia stuartii 03/15/2018 [facility] CARDIAC ENZYMES Troponin-I <0.02 0.00 - 0.40 03/15/2018 [facility] CARDIAC ENZYMES Total CK 68 12 - 191 03/15/2018 [facility] CHEM PANEL Globulin 6.0 2.7 - 4.2 03/15/2018 [facility] CHEM PANEL A/G Ratio 0.5 0.7 - 1.6 03/15/2018 [facility] CHEM PANEL B/C Ratio 15 6 - 25 03/15/2018 [facility] CHEM PANEL Total Protein 9.2 6.4 - 8.4 03/15/2018 [facility] CHEM PANEL Bili Total 0.6 0.2 - 1.3 03/15/2018 [facility] CHEM PANEL AST 21 0 - 37 03/15/2018 [facility] CHEM PANEL Alk Phos 162 39 - 136 03/15/2018 [facility] CHEM PANEL Albumin Lvl 3.2 3.5 - 5.0 03/15/2018 [facility] CHEM PANEL ALT 34 0 - 65 03/15/2018 [facility] CHEM PANEL Procalcitonin Lvl <0.05 ng/mL 0.00 - 0.10 03/15/2018 [facility] CHEM PANEL Lactic Acid Lvl 1.0 0.5 - 2.2 03/15/2018 [facility] HEMATOLOGY Hypochrom 1+ (03/14/18 9:25 PM) None Seen 03/15/2018 [facility] HEMATOLOGY Polychrom slight 03/15/2018 [facility] HEMATOLOGY Basophils # 0.1 0.0 - 0.2 03/15/2018 [facility] HEMATOLOGY Plt Morph Leeann l (03/14/18 9:25 PM) 03/15/2018 [facility] HEMATOLOGY RBC Morph Leeann l (03/14/18 9:25 PM) 03/15/2018 [facility] ELECTROLYTES AGAP 14.4 10.0 - 20.0 01/19/2018 [facility] ELECTROLYTES eGFR 77 01/19/2018 Result Comment: The eGFR is calculated using the CKD-EPI formula. In most young, healthy individuals the eGFR will be >90 mL/min/1.73m2. The eGFR declines with age. An eGFR of 60-89 may be normal in some populations, particularly the elderly, for whom the CKD-EPI formula has not been extensively validated. Use of the eGFR is not recommended in the following populations:

Individuals with unstable creatinine concentrations, including patients and those with serious co-morbid conditions.

Patients with extremes in muscle mass or diet.

The data above are obtained from the National Kidney Disease Education Program (NKDEP) which additionally recommends that when the eGFR is used in patients with extremes of body mass index for purposes of drug dosing, the eGFR should be multiplied by the estimated BMI. [facility] ELECTROLYTES Potassium Lvl 4.4 3.5 - 5.1 01/19/2018 [facility] ELECTROLYTES Sodium Lvl 138 135 - 145 01/19/2018 [facility] ELECTROLYTES Creatinine Lvl 1.2 3 0.50 - 1.40 01/19/2018 [facility] ELECTROLYTES BUN 23 7 - 22 01/19/2018 [facility] ELECTROLYTES Glucose Lvl 89 70 - 99 01/19/2018 [facility] ELECTROLYTES Calcium Lvl 8.9 8.5 - 10.5 01/19/2018 [facility] ELECTROLYTES CO2 20 24 - 32 01/19/2018 [facility] ELECTROLYTES Chloride Lvl 108 95 - 109 01/19/2018 [facility] MPV 8.2 7.4 - 10.4 01/19/2018 [facility] Hct 30.5 42.0 - 54.0 01/19/2018 [facility] Platelet 287 133 - 450 01/19/2018 [facility] WBC 8.0 3.7 - 10.4 01/19/2018 [facility] Hgb 9.9 14.0 - 18.0 01/19/2018 [facility] RBC 4.00 4.70 - 6.10 01/19/2018 [facility] MCH 24.7 27.0 - 31.0 01/19/2018 [facility] MCV 76.2 80.0 - 94.0 01/19/2018 [facility] RDW 18.2 11.5 - 14.5 01/19/2018 [facility] MCHC 32.4 32.0 - 36.0 01/19/2018 [facility] Segs-Bands # 4.6 1.5 - 8.1 01/19/2018 [facility] Basophils 0.6 0.0 - 1.0 01/19/2018 [facility] Microcyte 1+ *ABN* (01/19/18 4:42 AM) None Seen 01/19/2018 [facility] Lymphocytes # 1.9 1.0 - 5.5 01/19/2018 [facility] Eosinophils 3.8 0.0 - 4.0 01/19/2018 [facility] Monocytes 14.5 2.0 - 12.0 01/19/2018 [facility] Eosinophils # 0.3 0.0 - 0.5 01/19/2018 [facility] Lymphocytes 23.6 20.0 - 40.0 01/19/2018 [facility] Segs 57.5 45.0 - 75.0 01/19/2018 [facility] Monocytes # 1.2 0.0 - 0.8 01/19/2018 [facility] ELECTROLYTES AGAP 12.2 10.0 - 20.0 01/17/2018 [facility] ELECTROLYTES eGFR 80 01/17/2018 Result Comment: The eGFR is calculated using the CKD-EPI formula. In most young, healthy individuals the eGFR will be >90 mL/min/1.73m2. The eGFR declines with age. An eGFR of 60-89 may be normal in some populations, particularly the elderly, for whom the CKD-EPI formula has not been extensively validated. Use of the eGFR is not recommended in the following populations:

Individuals with unstable creatinine concentrations, including patients and those with serious co-morbid conditions.

Patients with extremes in muscle mass or diet.

The data above are obtained from the National Kidney Disease Education Program (NKDEP) which additionally recommends that when the eGFR is used in patients with extremes of body mass index for purposes of drug dosing, the eGFR should be multiplied by the estimated BMI. [facility] ELECTROLYTES Chloride Lvl 105 95 - 109 01/17/2018 [facility] ELECTROLYTES CO2 23 24 - 32 01/17/2018 [facility] ELECTROLYTES BUN 24 7 - 22 01/17/2018 [facility] ELECTROLYTES Sodium Lvl 136 135 - 145 01/17/2018 [facility] ELECTROLYTES Potassium Lvl 4.2 3.5 - 5.1 01/17/2018 [facility] ELECTROLYTES Calcium Lvl 9.1 8.5 - 10.5 01/17/2018 [facility] ELECTROLYTES Glucose Lvl 98 70 - 99 01/17/2018 [facility] ELECTROLYTES Creatinine Lvl 1.2 0 0.50 - 1.40 01/17/2018 [facility] RBC 4.14 4.70 - 6.10 01/17/2018 [facility] WBC 7.7 3.7 - 10.4 01/17/2018 [facility] Hgb 10.0 14.0 - 18.0 01/17/2018 [facility] MCHC 31.7 32.0 - 36.0 01/17/2018 [facility] MCH 24.1 27.0 - 31.0 01/17/2018 [facility] RDW 17.7 11.5 - 14.5 01/17/2018 [facility] MPV 8.2 7.4 - 10.4 01/17/2018 [facility] Platelet 340 133 - 450 01/17/2018 [facility] MCV 76.1 80.0 - 94.0 01/17/2018 [facility] Hct 31.5 42.0 - 54.0 01/17/2018 [facility] Monocytes # 0.6 0.0 - 0.8 01/17/2018 [facility] Eosinophils # 0.3 0.0 - 0.5 01/17/2018 [facility] HEMATOLOGY Microcyte 1+ *ABN* (01/17/18 9:52 AM) None Seen 01/17/2018 [facility] HEMATOLOGY Basophils # 0.1 0.0 - 0.2 01/17/2018 [facility] HEMATOLOGY Basophils 0.8 0.0 - 1.0 01/17/2018 [facility] HEMATOLOGY Eosinophils 4.4 0.0 - 4.0 01/17/2018 [facility] HEMATOLOGY Segs-Bands # 4.7 1.5 - 8.1 01/17/2018 [facility] HEMATOLOGY Lymphocytes # 1.9 1.0 - 5.5 01/17/2018 [facility] HEMATOLOGY Monocytes 8.0 2.0 - 12.0 01/17/2018 [facility] HEMATOLOGY Segs 61.6 45.0 - 75.0 01/17/2018 [facility] HEMATOLOGY Lymphocytes 25.2 20.0 - 40.0 01/17/2018 [facility] IMMUNOLOGY Prealbumin 11.6 18.0 - 45.0 01/17/2018 [facility] TOXICOLOGY Vanco Tr TND 2000 01/17/2018 [facility] TOXICOLOGY Vanco Tr 15.5 01/17/2018 [facility] URINE AND STOOL UA Urobilinogen <=1.0 mg/dL 0.1 - 1.0 01/16/2018 [facility] URINE AND STOOL UA Color Ltyellow 01/16/2018 [facility] URINE AND STOOL UA Sq Epi None Seen 01/16/2018 [facility] URINE AND STOOL UA Glucose Negative mg/dL Negative mg/dL 01/16/2018 [facility] URINE AND STOOL UA Ketones Trace mg/dL Negative mg/dL 01/16/2018 [facility] URINE AND STOOL UA Bili Negative *NA* (01/16/18 4:19 AM) Negative 01/16/2018 [facility] URINE AND STOOL UA Nitrite Negative (01/16/18 4:19 AM) Negative 01/16/2018 [facility] URINE AND STOOL UA Blood Negative (01/16/18 4:19 AM) Negative 01/16/2018 [facility] URINE AND STOOL UA Leuk Est Small *ABN* (01/16/18 4:19 AM) Negative 01/16/2018 [facility] URINE AND STOOL UA Spec Grav 1.015 <=1.030 01/16/2018 [facility] URINE AND STOOL UA Turbidity Clear (01/16/18 4:19 AM) Clear 01/16/2018 [facility] URINE AND STOOL UA pH 6.0 5.0 - 8.0 01/16/2018 [facility] URINE AND STOOL UA Protein 100 mg/dL Negative mg/dL 01/16/2018 [facility] URINE AND STOOL UA Bacteria Occasional /HPF None Seen /HPF 01/16/2018 [facility] URINE AND STOOL UA RBC 1 0 - 2 01/16/2018 [facility] URINE AND STOOL UA WBC 7 0 - 5 01/16/2018 [facility] CHEM PANEL Lactic Acid Lvl 0.7 0.5 - 2.2 01/15/2018 [facility] HEMATOLOGY PTT 30.3 22.9 - 35.8 01/15/2018 [facility] HEMATOLOGY PT 14.5 12.0 - 14.7 01/15/2018 [facility] HEMATOLOGY INR 1.13 0.85 - 1.17 01/15/2018 [facility] CARDIAC ENZYMES Troponin-I <0.02 0.00 - 0.40 01/15/2018 [facility] CARDIAC ENZYMES Total CK 434 12 - 191 01/15/2018 [facility] CARDIAC ENZYMES BNP 6 <=100 pg/mL 01/15/2018 [facility] CHEM PANEL Lactic Acid Lvl 2.0 0.5 - 2.2 01/15/2018 [facility] CHEM PANEL Procalcitonin Lvl 0.33 0.00 - 0.10 01/15/2018 [facility] CHEM PANEL eGFR 60 01/15/2018 Result Comment: The eGFR is calculated using the CKD-EPI formula. In most young, healthy individuals the eGFR will be >90 mL/min/1.73m2. The eGFR declines with age. An eGFR of 60-89 may be normal in some populations, particularly the elderly, for whom the CKD-EPI formula has not been extensively validated. Use of the eGFR is not recommended in the following populations:

Individuals with unstable creatinine concentrations, including patients and those with serious co-morbid conditions.

Patients with extremes in muscle mass or diet.

The data above are obtained from the National Kidney Disease Education Program (NKDEP) which additionally recommends that when the eGFR is used in patients with extremes of body mass index for purposes of drug dosing, the eGFR should be multiplied by the estimated BMI. [facility] CHEM PANEL Bili Total 0.5 0.2 - 1.3 01/15/2018 [facility] CHEM PANEL Potassium Lvl 4.1 3.5 - 5.1 01/15/2018 [facility] CHEM PANEL Chloride Lvl 106 95 - 109 01/15/2018 [facility] CHEM PANEL Sodium Lvl 135 135 - 145 01/15/2018 [facility] CHEM PANEL BUN 35 7 - 22 01/15/2018 [facility] CHEM PANEL Creatinine Lvl 1.52 0.50 - 1.40 01/15/2018 [facility] CHEM PANEL AST 38 0 - 37 01/15/2018 [facility] CHEM PANEL ALT 66 0 - 65 01/15/2018 [facility] CHEM PANEL Alk Phos 147 39 - 136 01/15/2018 [facility] CHEM PANEL Calcium Lvl 9.6 8.5 - 10.5 01/15/2018 [facility] CHEM PANEL CO2 18 24 - 32 01/15/2018 [facility] CHEM PANEL Total Protein 9.4 6.4 - 8.4 01/15/2018 [facility] CHEM PANEL Albumin Lvl 3.4 3.5 - 5.0 01/15/2018 [facility] CHEM PANEL Glucose Lvl 113 70 - 99 01/15/2018 [facility] CHEM PANEL B/C Ratio 23 6 - 25 01/15/2018 [facility] CHEM PANEL AGAP 15.1 10.0 - 20.0 01/15/2018 [facility] CHEM PANEL A/G Ratio 0.6 0.7 - 1.6 01/15/2018 [facility] CHEM PANEL Globulin 6.0 2.7 - 4.2 01/15/2018 [facility] CHEM PANEL Magnesium Lvl 2.0 1.8 - 2.4 01/15/2018 [facility] CHEM PANEL Phosphorus 2.9 2.5 - 4.5 01/15/2018 [facility] HEMATOLOGY MPV 8.2 7.4 - 10.4 01/15/2018 [facility] HEMATOLOGY RDW 18.0 11.5 - 14.5 01/15/2018 [facility] HEMATOLOGY Platelet 466 133 - 450 01/15/2018 [facility] HEMATOLOGY MCHC 32.3 32.0 - 36.0 01/15/2018 [facility] HEMATOLOGY RBC 4.69 4.70 - 6.10 01/15/2018 [facility] HEMATOLOGY Hgb 11.5 14.0 - 18.0 01/15/2018 [facility] HEMATOLOGY Hct 35.6 42.0 - 54.0 01/15/2018 [facility] HEMATOLOGY WBC 13.3 3.7 - 10.4 01/15/2018 [facility] HEMATOLOGY MCH 24.5 27.0 - 31.0 01/15/2018 [facility] MCV 75.9 80.0 - 94.0 01/15/2018 [facility] Sed Rate 80 0 - 15 01/15/2018 [facility] Eosinophils # 0.5 0.0 - 0.5 01/15/2018 [facility] Basophils # 0.1 0.0 - 0.2 01/15/2018 [facility] Microcyte 1+ *ABN* (01/15/18 7:52 AM) None Seen 01/15/2018 [facility] Monocytes 11.1 2.0 - 12.0 01/15/2018 [facility] Lymphocytes 16.4 20.0 - 40.0 01/15/2018 [facility] Lymphocytes # 2.2 1.0 - 5.5 01/15/2018 [facility] Segs 68.3 45.0 - 75.0 01/15/2018 [facility] Monocytes # 1.5 0.0 - 0.8 01/15/2018 [facility] Eosinophils 3.5 0.0 - 4.0 01/15/2018 [facility] Basophils 0.7 0.0 - 1.0 01/15/2018 [facility] Segs-Bands # 9.1 1.5 - 8.1 01/15/2018 [facility] IMMUNOLOGY CRP, High Sensitivity >19 0.0 mg/L 01/15/2018 [facility] C-REACTIVE PROTEIN 93.8 <=2.9 mg/L 10/22/2017 [facility] CHEM PANEL eGFR 70 10/22/2017 Result Comment: The eGFR is calculated using the CKD-EPI formula. In most young, healthy individuals the eGFR will be >90 mL/min/1.73m2. The eGFR declines with age. An eGFR of 60-89 may be normal in some populations, particularly the elderly, for whom the CKD-EPI formula has not been extensively validated. Use of the eGFR is not recommended in the following populations:

Individuals with unstable creatinine concentrations, including patients and those with serious co-morbid conditions.

Patients with extremes in muscle mass or diet.

The data above are obtained from the National Kidney Disease Education Program (NKDEP) which additionally recommends that when the eGFR is used in patients with extremes of body mass index for purposes of drug dosing, the eGFR should be multiplied by the estimated BMI. [facility] CHEM PANEL Sodium Lvl 145 135 - 145 10/22/2017 [facility] CHEM PANEL Chloride Lvl 113 95 - 109 10/22/2017 [facility] CHEM PANEL Potassium Lvl 4.9 3.5 - 5.1 10/22/2017 [facility] CHEM PANEL Creatinine Lvl 1.34 0.50 - 1.40 10/22/2017 [facility] CHEM PANEL BUN 28 7 - 22 10/22/2017 [facility] CHEM PANEL Calcium Lvl 8.5 8.5 - 10.5 10/22/2017 [facility] CHEM PANEL CO2 24 24 - 32 10/22/2017 [facility] CHEM PANEL AGAP 12.9 10.0 - 20.0 10/22/2017 [facility] CHEM PANEL Glucose Lvl 79 70 - 99 10/22/2017 [facility] CHEM PANEL eGFR 59 10/21/2017 Result Comment: The eGFR is calculated using the CKD-EPI formula. In most young, healthy individuals the eGFR will be >90 mL/min/1.73m2. The eGFR declines with age. An eGFR of 60-89 may be normal in some populations, particularly the elderly, for whom the CKD-EPI formula has not been extensively validated. Use of the eGFR is not recommended in the following populations:

Individuals with unstable creatinine concentrations, including patients and those with serious co-morbid conditions.

Patients with extremes in muscle mass or diet.

The data above are obtained from the National Kidney Disease Education Program (NKDEP) which additionally recommends that when the eGFR is used in patients with extremes of body mass index for purposes of drug dosing, the eGFR should be multiplied by the estimated BMI. [facility] CHEM PANEL AGAP 15.4 10.0 - 20.0 10/21/2017 [facility] CHEM PANEL Calcium Lvl 8.5 8.5 - 10.5 10/21/2017 [facility] CHEM PANEL CO2 22 24 - 32 10/21/2017 [facility] CHEM PANEL Chloride Lvl 110 95 - 109 10/21/2017 [facility] [facility] CHEM PANEL Potassium Lvl 4.4 3.5 - 5.1 10/21/2017 [facility] CHEM PANEL Sodium Lvl 143 135 - 145 10/21/2017 [facility] CHEM PANEL Creatinine Lvl 1.53 0.50 - 1.40 10/21/2017 [facility] CHEM PANEL Glucose Lvl 81 70 - 99 10/21/2017 [facility] CHEM PANEL BUN 35 7 - 22 10/21/2017 [facility] TOXICOLOGY Vanco Lvl 16.0 10/21/2017 [facility] CHEM PANEL eGFR 44 10/20/2017 Result Comment: The eGFR is calculated using the CKD-EPI formula. In most young, healthy individuals the eGFR will be >90 mL/min/1.73m2. The eGFR declines with age. An eGFR of 60-89 may be normal in some populations, particularly the elderly, for whom the CKD-EPI formula has not been extensively validated. Use of the eGFR is not recommended in the following populations:

Individuals with unstable creatinine concentrations, including patients and those with serious co-morbid conditions.

Patients with extremes in muscle mass or diet.

The data above are obtained from the National Kidney Disease Education Program (NKDEP) which additionally recommends that when the eGFR is used in patients with extremes of body mass index for purposes of drug dosing, the eGFR should be multiplied by the estimated BMI. [facility] CHEM PANEL Glucose Lvl 98 70 - 99 10/20/2017 [facility] CHEM PANEL BUN 39 7 - 22 10/20/2017 [facility] CHEM PANEL Chloride Lvl 108 95 - 109 10/20/2017 [facility] CHEM PANEL CO2 25 24 - 32 10/20/2017 [facility] CHEM PANEL Calcium Lvl 8.4 8.5 - 10.5 10/20/2017 [facility] CHEM PANEL AGAP 12.9 10.0 - 20.0 10/20/2017 [facility] CHEM PANEL Creatinine Lvl 1.96 0.50 - 1.40 10/20/2017 [facility] CHEM PANEL Potassium Lvl 4.9 3.5 - 5.1 10/20/2017 [facility] CHEM PANEL Sodium Lvl 141 135 - 145 10/20/2017 [facility] TOXICOLOGY Vanco Tr TND 4:00 10/20/2017 [facility] TOXICOLOGY Vanco Tr 14.6 10/20/2017 [facility] HEMATOLOGY Platelet 236 133 - 450 10/18/2017 [facility] HEMATOLOGY MPV 8.4 7.4 - 10.4 10/18/2017 [facility] HEMATOLOGY MCHC 32.6 32.0 - 36.0 10/18/2017 [facility] HEMATOLOGY RDW 20.6 11.5 - 14.5 10/18/2017 [facility] HEMATOLOGY MCV 76.2 80.0 - 94.0 10/18/2017 [facility] HEMATOLOGY MCH 24.8 27.0 - 31.0 10/18/2017 [facility] HEMATOLOGY Hct 27.4 42.0 - 54.0 10/18/2017 [facility] HEMATOLOGY RBC 3.60 4.70 - 6.10 10/18/2017 [facility] HEMATOLOGY Hgb 8.9 14.0 - 18.0 10/18/2017 [facility] HEMATOLOGY WBC 9.3 3.7 - 10.4 10/18/2017 [facility] HEMATOLOGY Basophils # 0.1 0.0 - 0.2 10/18/2017 [facility] HEMATOLOGY Microcyte 1+ *ABN* (10/18/17 3:17 AM) None Seen 10/18/2017 [facility] HEMATOLOGY Basophils 0.7 0.0 - 1.0 10/18/2017 [facility] HEMATOLOGY Lymphocytes # 2.1 1.0 - 5.5 10/18/2017 [facility] HEMATOLOGY Segs-Bands # 5.6 1.5 - 8.1 10/18/2017 [facility] HEMATOLOGY Eosinophils 6.0 0.0 - 4.0 10/18/2017 [facility] HEMATOLOGY Monocytes # 0.9 0.0 - 0.8 10/18/2017 [facility] HEMATOLOGY Eosinophils # 0.6 0.0 - 0.5 10/18/2017 [facility] HEMATOLOGY Monocytes 10.1 2.0 - 12.0 10/18/2017 [facility] HEMATOLOGY Lymphocytes 23.0 20.0 - 40.0 10/18/2017 [facility] HEMATOLOGY Segs 60.2 45.0 - 75.0 10/18/2017 [facility] MOLECULAR DIAGNOSTIC HCV RNA VirLoad 218 10/17/2017 [facility] MOLECULAR DIAGNOSTIC HCV RNA Log10 2.3 10/17/2017 [facility] DRUG SCREEN U Methadone Scr Nega tive *NA* (3/15/18 11:43 PM) Negative 10/17/2017 [facility] DRUG SCREEN UDS Note See Note (10/16/17 11:43 PM) 10/17/2017 [facility] DRUG SCREEN U Cannab Scr Posi tive *ABN* (10/16/17 11:43 PM) Negative 10/17/2017 [facility] DRUG SCREEN U Opiate Scr Posi tive *ABN* (10/16/17 11:43 PM) Negative 10/17/2017 [facility] DRUG SCREEN U Propoxyph Scr Nega tive *NA* (10/16/17 11:43 PM) Negative 10/17/2017 [facility] DRUG SCREEN U Cocaine Scr Nega tive *NA* (10/16/17 11:43 PM) Negative 10/17/2017 [facility] DRUG SCREEN U Benzodia Scr Posi tive *ABN* (10/16/17 11:43 PM) Negative 10/17/2017 [facility] DRUG SCREEN U Phencyc Scr Nega tive *NA* (10/16/17 11:43 PM) Negative 10/17/2017 [facility] DRUG SCREEN U Chelsie Scr Nega tive *NA* (10/16/17 11:43 PM) Negative 10/17/2017 [facility] DRUG SCREEN U Amph Scr Nega tive *NA* (10/16/17 11:43 PM) Negative 10/17/2017 [facility] HEMATOLOGY Microcyte 1+ *ABN* (10/16/17 5:38 AM) None Seen 10/16/2017 [facility] HEMATOLOGY Eosinophils # 0.5 0.0 - 0.5 10/16/2017 [facility] HEMATOLOGY Monocytes # 0.8 0.0 - 0.8 10/16/2017 [facility] HEMATOLOGY Lymphocytes # 2.5 1.0 - 5.5 10/16/2017 [facility] HEMATOLOGY Segs-Bands # 3.3 1.5 - 8.1 10/16/2017 [facility] HEMATOLOGY Basophils 0.6 0.0 - 1.0 10/16/2017 [facility] HEMATOLOGY Eosinophils 7.2 0.0 - 4.0 10/16/2017 [facility] HEMATOLOGY Monocytes 11.7 2.0 - 12.0 10/16/2017 [facility] HEMATOLOGY Lymphocytes 34.4 20.0 - 40.0 10/16/2017 [facility] HEMATOLOGY Segs 46.1 45.0 - 75.0 10/16/2017 [facility] HEMATOLOGY Platelet 255 133 - 450 10/16/2017 [facility] HEMATOLOGY RDW 20.9 11.5 - 14.5 10/16/2017 [facility] HEMATOLOGY MCHC 32.0 32.0 - 36.0 10/16/2017 [facility] HEMATOLOGY MCH 24.3 27.0 - 31.0 10/16/2017 [facility] HEMATOLOGY MCV 75.8 80.0 - 94.0 10/16/2017 [facility] HEMATOLOGY MPV 8.0 7.4 - 10.4 10/16/2017 [facility] HEMATOLOGY Hct 28.6 42.0 - 54.0 10/16/2017 [facility] HEMATOLOGY Hgb 9.2 14.0 - 18.0 10/16/2017 [facility] HEMATOLOGY RBC 3.78 4.70 - 6.10 10/16/2017 [facility] HEMATOLOGY WBC 7.2 3.7 - 10.4 10/16/2017 [facility] TOXICOLOGY Vanco Tr TND 0500 10/16/2017 [facility] TOXICOLOGY Vanco Tr 16.6 10/16/2017 [facility] CHEM PANEL Total Protein 7.9 6.4 - 8.4 10/15/2017 [facility] CHEM PANEL B/C Ratio 19 6 - 25 10/15/2017 [facility] CHEM PANEL AST 18 0 - 37 10/15/2017 [facility] CHEM PANEL Globulin 5.4 2.7 - 4.2 10/15/2017 [facility] CHEM PANEL Albumin Lvl 2.5 3.5 - 5.0 10/15/2017 [facility] CHEM PANEL ALT 24 0 - 65 10/15/2017 [facility] CHEM PANEL A/G Ratio 0.5 0.7 - 1.6 10/15/2017 [facility] CHEM PANEL Alk Phos 115 39 - 136 10/15/2017 [facility] CHEM PANEL Bili Total 0.3 0.2 - 1.3 10/15/2017 [facility] CHEM PANEL AST 24 0 - 37 10/14/2017 [facility] CHEM PANEL ALT 23 0 - 65 10/14/2017 [facility] CHEM PANEL Total Protein 7.9 6.4 - 8.4 10/14/2017 [facility] CHEM PANEL Albumin Lvl 2.6 3.5 - 5.0 10/14/2017 [facility] CHEM PANEL B/C Ratio 20 6 - 25 10/14/2017 [facility] CHEM PANEL Globulin 5.3 2.7 - 4.2 10/14/2017 [facility] CHEM PANEL Bili Total 0.3 0.2 - 1.3 10/14/2017 [facility] CHEM PANEL Alk Phos 115 39 - 136 10/14/2017 [facility] CHEM PANEL A/G Ratio 0.5 0.7 - 1.6 10/14/2017 [facility] HEMATOLOGY Sed Rate 62 0 - 15 10/13/2017 [facility] IMMUNOLOGY C-REACTIVE PROTEIN 67.2 <=2.9 mg/L 10/13/2017 [facility] TOXICOLOGY Vanco Lvl 21.3 10/13/2017 [facility] HEMATOLOGY INR 1.11 0.85 - 1.17 10/12/2017 [facility] HEMATOLOGY PT 14.3 12.0 - 14.7 10/12/2017 [facility] TOXICOLOGY Vanco Tr TND 1200 10/10/2017 [facility] TOXICOLOGY Vanco Tr 20.0 10/10/2017 [facility] HEMATOLOGY Sed Rate 90 0 - 15 10/06/2017 [facility] IMMUNOLOGY C-REACTIVE PROTEIN 113.0 <=2.9 mg/L 10/06/2017 [facility] CHEM PANEL B/C Ratio 31 6 - 25 10/04/2017 [facility] CHEM PANEL A/G Ratio 0.4 0.7 - 1.6 10/04/2017 [facility] CHEM PANEL Globulin 6.2 2.7 - 4.2 10/04/2017 [facility] CHEM PANEL Bili Total 0.4 0.2 - 1.3 10/04/2017 [facility] CHEM PANEL ALT 58 0 - 65 10/04/2017 [facility] CHEM PANEL Albumin Lvl 2.7 3.5 - 5.0 10/04/2017 [facility] CHEM PANEL Total Protein 8.9 6.4 - 8.4 10/04/2017 [facility] CHEM PANEL Alk Phos 149 39 - 136 10/04/2017 [facility] CHEM PANEL AST 43 0 - 37 10/04/2017 [facility] HEMATOLOGY Hgb 9.8 14.0 - 18.0 10/04/2017 [facility] HEMATOLOGY RBC 3.96 4.70 - 6.10 10/04/2017 [facility] HEMATOLOGY WBC 7.7 3.7 - 10.4 10/04/2017 [facility] HEMATOLOGY Platelet 428 133 - 450 10/04/2017 [facility] HEMATOLOGY MPV 7.7 7.4 - 10.4 10/04/2017 [facility] HEMATOLOGY MCHC 32.6 32.0 - 36.0 10/04/2017 [facility] HEMATOLOGY MCH 24.7 27.0 - 31.0 10/04/2017 [facility] HEMATOLOGY RDW 20.2 11.5 - 14.5 10/04/2017 [facility] HEMATOLOGY MCV 75.6 80.0 - 94.0 10/04/2017 [facility] HEMATOLOGY Hct 29.9 42.0 - 54.0 10/04/2017 [facility] HEMATOLOGY Basophils # 0.1 0.0 - 0.2 10/04/2017 [facility] HEMATOLOGY Eosinophils # 0.3 0.0 - 0.5 10/04/2017 [facility] HEMATOLOGY Microcyte 1+ *ABN* (10/04/17 4:18 AM) None Seen 10/04/2017 [facility] HEMATOLOGY Lymphocytes # 2.1 1.0 - 5.5 10/04/2017 [facility] HEMATOLOGY Monocytes # 0.9 0.0 - 0.8 10/04/2017 [facility] HEMATOLOGY Segs-Bands # 4.2 1.5 - 8.1 10/04/2017 [facility] HEMATOLOGY Basophils 1.0 0.0 - 1.0 10/04/2017 [facility] HEMATOLOGY Monocytes 12.2 2.0 - 12.0 10/04/2017 [facility] HEMATOLOGY Eosinophils 4.4 0.0 - 4.0 10/04/2017 [facility] HEMATOLOGY Lymphocytes 27.6 20.0 - 40.0 10/04/2017 [facility] HEMATOLOGY Segs 54.8 45.0 - 75.0 10/04/2017 [facility] HEMATOLOGY Basophils # 0.1 0.0 - 0.2 10/02/2017 [facility] HEMATOLOGY Sed Rate >100 mm/hr 0 - 15 09/26/2017 [facility] TOXICOLOGY Amik Tr TND 1645 09/20/2017 [facility] TOXICOLOGY Amikacin Tr <2.5 09/20/2017 [facility] BLOOD BANK RESULTS ABO/Rh A POS 09/19/2017 [facility] BLOOD BANK RESULTS Antibody Scrn Negative (09/19/17 4:40 AM) 09/19/2017 [facility] BLOOD BANK RESULTS RBC product Product available (09/19/17 4:12 AM) 09/19/2017 [facility] TOXICOLOGY Vanco Lvl 8.0 09/19/2017 [facility] TOXICOLOGY Amikacin Tr <2.5 09/18/2017 [facility] TOXICOLOGY Amik Tr TND 15:30 09/18/2017 [facility] HEMATOLOGY PT 14.3 12.0 - 14.7 09/18/2017 [facility] HEMATOLOGY PTT 38.8 22.9 - 35.8 09/18/2017 [facility] HEMATOLOGY INR 1.11 0.85 - 1.17 09/18/2017 [facility] TOXICOLOGY Amikacin Lvl 19.7 09/17/2017 [facility] TOXICOLOGY Amikacin Lvl 8.4 09/15/2017 [facility] CHEM PANEL Lactic Acid Lvl 1.9 0.5 - 2.2 09/12/2017 [facility] IMMUNOLOGY CDC HIV 4th GEN Negat pavel *NA* (09/10/17 5:59 AM) Negative 09/10/2017 [facility] CEFTRIAXONE:SUSC:PT:ISOLATE:ORDQN:NHUNG Culture: Urine 50,000 - 100,000 CFU/mL Acinetobacter baumannii , Multi-drug Resistant Organism 10,000 - 50,000 CFU/mL Escherichia coli , Multi-drug Resistant Organism 50,000 - 100,000 CFU/mL Skin Joanie 09/10/2017 [facility] CEFTRIAXONE:SUSC:PT:ISOLATE:ORDQN:NHUNG Escherichia coli Escherichia coli 09/10/2017 [facility] CEFTRIAXONE:SUSC:PT:ISOLATE:ORDQN:NHUNG Acinetobacter baumannii Acinetobacter baumannii 09/10/2017 [facility] URINE AND STOOL UA Sq Epi None Seen (09/09/17 11:25 PM) Few 09/10/2017 [facility] URINE AND STOOL UA Leuk Est Moderate *ABN* (09/09/17 11:25 PM) Negative 09/10/2017 [facility] URINE AND STOOL Micro? Performed (09/09/17 11:25 PM) 09/10/2017 [facility] URINE AND STOOL UA Nitrite Positive *ABN* (09/09/17 11:25 PM) Negative 09/10/2017 [facility] URINE AND STOOL UA Glucose Negative (09/09/17 11:25 PM) Negative 09/10/2017 [facility] URINE AND STOOL UA Ketones Negative *NA* (09/09/17 11:25 PM) Negative 09/10/2017 [facility] URINE AND STOOL UA Blood Small *ABN* (09/09/17 11:25 PM) Negative 09/10/2017 [facility] URINE AND STOOL UA Urobilinogen 0.2 0.1 - 1.0 09/10/2017 [facility] URINE AND STOOL UA Protein 100 mg/dL Negative mg/dL 09/10/2017 [facility] URINE AND STOOL UA pH 7.0 5.0 - 8.0 09/10/2017 [facility] URINE AND STOOL UA Bili Negative *NA* (09/09/17 11:25 PM) Negative 09/10/2017 [facility] URINE AND STOOL UA Spec Grav 1.020 <=1.030 09/10/2017 [facility] URINE AND STOOL UA WBC Packed *ABN* (09/09/17 11:25 PM) None Seen 09/10/2017 [facility] URINE AND STOOL UA RBC None Seen (09/09/17 11:25 PM) 0 - 2 09/10/2017 [facility] URINE AND STOOL UA Bacteria Many /HPF None Seen /HPF 09/10/2017 [facility] URINE AND STOOL UA Amorph Michelle Moderate /HPF None Seen /HPF 09/10/[address] [facility] [place] [place] URINE AND STOOL UA Color Yellow *NA* (09/09/17 11:25 PM) Yellow 09/10/2017 [facility] URINE AND STOOL UA Turbidity Cloudy *ABN* (09/09/17 11:25 PM) Clear 09/10/2017 [facility] CARDIAC ENZYMES Total CK 22 12 - 191 09/10/2017 [facility] CARDIAC ENZYMES Troponin-I <0.02 0.00 - 0.40 09/10/2017 [facility] CHEM PANEL Procalcitonin Lvl 0.22 0.00 - 0.10 09/10/2017 [facility] CHEM PANEL Lactic Acid Lvl 2.3 0.5 - 2.2 09/10/2017 [facility] HEMATOLOGY INR 1.10 0.85 - 1.17 09/10/2017 [facility] HEMATOLOGY PT 14.2 12.0 - 14.7 09/10/2017 [facility] HEMATOLOGY PTT 37.4 22.9 - 35.8 09/10/2017 [facility] CHEM PANEL eGFR 99 05/28/2017 Result Comment: The eGFR is calculated using the CKD-EPI formula. In most young, healthy individuals the eGFR will be >90 mL/min/1.73m2. The eGFR declines with age. An eGFR of 60-89 may be normal in some populations, particularly the elderly, for whom the CKD-EPI formula has not been extensively validated. Use of the eGFR is not recommended in the following populations:

Individuals with unstable creatinine concentrations, including patients and those with serious co-morbid conditions.

Patients with extremes in muscle mass or diet.

The data above are obtained from the National Kidney Disease Education Program (NKDEP) which additionally recommends that when the eGFR is used in patients with extremes of body mass index for purposes of drug dosing, the eGFR should be multiplied by the estimated BMI. [facility] CHEM PANEL Glucose Lvl 83 70 - 99 05/28/2017 [facility] CHEM PANEL Creatinine Lvl 1.00 0.50 - 1.40 05/28/2017 [facility] CHEM PANEL Chloride Lvl 104 95 - 109 05/28/2017 [facility] CHEM PANEL Sodium Lvl 138 135 - 145 05/28/2017 [facility] CHEM PANEL Potassium Lvl 3.8 3.5 - 5.1 05/28/2017 [facility] CHEM PANEL BUN 6 7 - 22 05/28/2017 [facility] CHEM PANEL CO2 25 24 - 32 05/28/2017 [facility] CHEM PANEL Calcium Lvl 9.5 8.5 - 10.5 05/28/2017 [facility] CHEM PANEL AGAP 12.8 10.0 - 20.0 05/28/2017 [facility] HEMATOLOGY Basophils # 0.1 0.0 - 0.2 05/28/2017 [facility] HEMATOLOGY Lymphocytes # 3.3 1.0 - 5.5 05/28/2017 [facility] Segs-Bands # 3.4 1.5 - 8.1 05/28/2017 [facility] Basophils 0.7 0.0 - 1.0 05/28/2017 [facility] Eosinophils # 0.1 0.0 - 0.5 05/28/2017 [facility] Monocytes # 0.7 0.0 - 0.8 05/28/2017 [facility] RBC Morph Leeann l (05/28/17 4:09 AM) 05/28/2017 [facility] Eosinophils 1.4 0.0 - 4.0 05/28/2017 [facility] Plt Morph Leeann l (05/28/17 4:09 AM) 05/28/2017 [facility] Monocytes 9.4 2.0 - 12.0 05/28/2017 [facility] Segs 44.8 45.0 - 75.0 05/28/2017 [facility] Lymphocytes 43.7 20.0 - 40.0 05/28/2017 [facility] RDW 16.1 11.5 - 14.5 05/28/2017 [facility] MPV 7.9 7.4 - 10.4 05/28/2017 [facility] MCHC 31.9 32.0 - 36.0 05/28/2017 [facility] MCH 26.1 27.0 - 31.0 05/28/2017 [facility] Platelet 382 133 - 450 05/28/2017 [facility] MCV 81.8 80.0 - 94.0 05/28/2017 [facility] Hct 36.0 42.0 - 54.0 05/28/2017 [facility] Hgb 11.5 14.0 - 18.0 05/28/2017 [facility] RBC 4.40 4.70 - 6.10 05/28/2017 [facility] WBC 7.5 3.7 - 10.4 05/28/2017 [facility] CHEM PANEL eGFR 88 05/27/2017 Result Comment: The eGFR is calculated using the CKD-EPI formula. In most young, healthy individuals the eGFR will be >90 mL/min/1.73m2. The eGFR declines with age. An eGFR of 60-89 may be normal in some populations, particularly the elderly, for whom the CKD-EPI formula has not been extensively validated. Use of the eGFR is not recommended in the following populations:

Individuals with unstable creatinine concentrations, including patients and those with serious co-morbid conditions.

Patients with extremes in muscle mass or diet.

The data above are obtained from the National Kidney Disease Education Program (NKDEP) which additionally recommends that when the eGFR is used in patients with extremes of body mass index for purposes of drug dosing, the eGFR should be multiplied by the estimated BMI. [facility] CHEM PANEL Potassium Lvl 3.9 3.5 - 5.1 05/27/2017 [facility] CHEM PANEL CO2 25 24 - 32 05/27/2017 [facility] CHEM PANEL Chloride Lvl 105 95 - 109 05/27/2017 [facility] CHEM PANEL Calcium Lvl 9.2 8.5 - 10.5 05/27/2017 [facility] CHEM PANEL BUN 6 7 - 22 05/27/2017 [facility] CHEM PANEL Creatinine Lvl 1.10 0.50 - 1.40 05/27/2017 [facility] CHEM PANEL Sodium Lvl 140 135 - 145 05/27/2017 [facility] CHEM PANEL Glucose Lvl 89 70 - 99 05/27/2017 [facility] CHEM PANEL AGAP 13.9 10.0 - 20.0 05/27/2017 [facility] Basophils # 0.1 0.0 - 0.2 05/27/2017 [facility] Lymphocytes 24.2 20.0 - 40.0 05/27/2017 [facility] HEMATOLOGY Segs 69.5 45.0 - 75.0 05/27/2017 [facility] Monocytes 5.3 2.0 - 12.0 05/27/2017 [facility] HEMATOLOGY Eosinophils 0.3 0.0 - 4.0 05/27/2017 [facility] HEMATOLOGY Segs-Bands # 5.7 1.5 - 8.1 05/27/2017 [facility] HEMATOLOGY Basophils 0.7 0.0 - 1.0 05/27/2017 [facility] HEMATOLOGY Lymphocytes # 2.0 1.0 - 5.5 05/27/2017 [facility] [facility] Monocytes # 0.4 0.0 - 0.8 05/27/2017 [facility] MCH 27.3 27.0 - 31.0 05/27/2017 [facility] Platelet 364 133 - 450 05/27/2017 [facility] MCHC 33.2 32.0 - 36.0 05/27/2017 [facility] HEMATOLOGY RDW 15.9 11.5 - 14.5 05/27/2017 [facility] HEMATOLOGY MPV 7.7 7.4 - 10.4 05/27/2017 [facility] HEMATOLOGY Hgb 12.2 14.0 - 18.0 05/27/2017 [facility] HEMATOLOGY MCV 82.1 80.0 - 94.0 05/27/2017 [facility] HEMATOLOGY Hct 36.6 42.0 - 54.0 05/27/2017 [facility] HEMATOLOGY RBC 4.46 4.70 - 6.10 05/27/2017 [facility] WBC 8.3 3.7 - 10.4 05/27/2017 [facility] CHEM PANEL eGFR 88 05/26/2017 Result Comment: The eGFR is calculated using the CKD-EPI formula. In most young, healthy individuals the eGFR will be >90 mL/min/1.73m2. The eGFR declines with age. An eGFR of 60-89 may be normal in some populations, particularly the elderly, for whom the CKD-EPI formula has not been extensively validated. Use of the eGFR is not recommended in the following populations:

Individuals with unstable creatinine concentrations, including patients and those with serious co-morbid conditions.

Patients with extremes in muscle mass or diet.

The data above are obtained from the National Kidney Disease Education Program (NKDEP) which additionally recommends that when the eGFR is used in patients with extremes of body mass index for purposes of drug dosing, the eGFR should be multiplied by the estimated BMI. [facility] CHEM PANEL ALANINE AMINOTRANSFERASE 13 0 - 65 05/26/2017 [facility] CHEM PANEL Albumin Lvl 2.6 3.5 - 5.0 05/26/2017 [facility] CHEM PANEL Alk Phos 78 39 - 136 05/26/2017 [facility] CHEM PANEL ASPARTATE TRANSAMINASE 12 0 - 37 05/26/2017 [facility] CHEM PANEL Bili Total 0.2 0.2 - 1.3 05/26/2017 [facility] CHEM PANEL Glucose Lvl 96 70 - 99 05/26/2017 [facility] CHEM PANEL BUN 9 7 - 22 05/26/2017 [facility] CHEM PANEL Chloride Lvl 108 95 - 109 05/26/2017 [facility] CHEM PANEL CO2 24 24 - 32 05/26/2017 [facility] CHEM PANEL Calcium Lvl 8.8 8.5 - 10.5 05/26/2017 [facility] CHEM PANEL Total Protein 7.5 6.4 - 8.4 05/26/2017 [facility] CHEM PANEL Creatinine Lvl 1.10 0.50 - 1.40 05/26/2017 [facility] CHEM PANEL Potassium Lvl 3.2 3.5 - 5.1 05/26/2017 [facility] CHEM PANEL Sodium Lvl 141 135 - 145 05/26/2017 [facility] CHEM PANEL Globulin 4.9 2.7 - 4.2 05/26/2017 [facility] CHEM PANEL A/G Ratio 0.5 0.7 - 1.6 05/26/2017 [facility] CHEM PANEL B/C Ratio 8 6 - 25 05/26/2017 [facility] CHEM PANEL AGAP 12.2 10.0 - 20.0 05/26/2017 [facility] MCH 27.0 27.0 - 31.0 05/26/2017 [facility] MCHC 33.1 32.0 - 36.0 05/26/2017 [facility] RDW 15.8 11.5 - 14.5 05/26/2017 [facility] Hct 31.8 42.0 - 54.0 05/26/2017 [facility] MCV 81.5 80.0 - 94.0 05/26/2017 [facility] WBC 6.4 3.7 - 10.4 05/26/2017 [facility] RBC 3.90 4.70 - 6.10 05/26/2017 [facility] Hgb 10.5 14.0 - 18.0 05/26/2017 [facility] Platelet 320 133 - 450 05/26/2017 [facility] MPV 7.4 7.4 - 10.4 05/26/2017 [facility] HEMATOLOGY Segs 55.2 45.0 - 75.0 05/26/2017 [facility] Lymphocytes 31.1 20.0 - 40.0 05/26/2017 [facility] HEMATOLOGY Monocytes 10.1 2.0 - 12.0 05/26/2017 [facility] HEMATOLOGY Eosinophils 2.9 0.0 - 4.0 05/26/2017 [facility] HEMATOLOGY Eosinophils # 0.2 0.0 - 0.5 05/26/2017 [facility] HEMATOLOGY Lymphocytes # 2.0 1.0 - 5.5 05/26/2017 [facility] Monocytes # 0.6 0.0 - 0.8 05/26/2017 [facility] HEMATOLOGY Basophils 0.7 0.0 - 1.0 05/26/2017 [facility] HEMATOLOGY Segs-Bands # 3.6 1.5 - 8.1 05/26/2017 [facility] HEMATOLOGY Basophils # 0.0 0.0 - 0.2 05/25/2017 [facility] HEMATOLOGY Eosinophils # 0.1 0.0 - 0.5 05/25/2017 [facility] MOLECULAR DIAGNOSTIC C difficile DNA Negative (05/24/17 12:28 PM) Negative 05/24/2017 [facility] IMMUNOLOGY Prealbumin 7.5 18.0 - 45.0 05/24/2017 [facility] IMMUNOLOGY C-REACTIVE PROTEIN 124.0 <=2.9 mg/L 05/24/2017 [facility] CHEM PANEL Magnesium Lvl 1.7 1.8 - 2.4 05/23/2017 [facility] CHEM PANEL Procalcitonin Lvl 2.05 0.00 - 0.10 05/23/2017 Result Comment: Critical Result(s) jamildai Kelley at 05/23/2017 04:21 by DB. Read back OK. [facility] CHEM PANEL ALT 13 0 - 65 05/23/2017 [facility] CHEM PANEL Albumin Lvl 2.6 3.5 - 5.0 05/23/2017 [facility] CHEM PANEL Total Protein 7.6 6.4 - 8.4 05/23/2017 [facility] CHEM PANEL Alk Phos 88 39 - 136 05/23/2017 [facility] CHEM PANEL AST 12 0 - 37 05/23/2017 [facility] CHEM PANEL Bili Total 0.3 0.2 - 1.3 05/23/2017 [facility] CHEM PANEL B/C Ratio 9 6 - 25 05/23/2017 [facility] CHEM PANEL A/G Ratio 0.5 0.7 - 1.6 05/23/2017 [facility] CHEM PANEL Globulin 5.0 2.7 - 4.2 05/23/2017 [facility] IMMUNOLOGY Prealbumin 8.6 18.0 - 45.0 05/23/2017 [facility] TOXICOLOGY Vanco Tr 10.7 05/23/2017 [facility] TOXICOLOGY Vanco Tr TND 0500 05/23/2017 [facility] CHEM PANEL Procalcitonin Lvl 0.43 0.00 - 0.10 05/22/2017 [facility] CHEM PANEL A/G Ratio 0.5 0.7 - 1.6 05/22/2017 [facility] CHEM PANEL Globulin 5.2 2.7 - 4.2 05/22/2017 [facility] CHEM PANEL Albumin Lvl 2.8 3.5 - 5.0 05/22/2017 [facility] CHEM PANEL Total Protein 8.0 6.4 - 8.4 05/22/2017 [facility] CHEM PANEL Bili Total 0.3 0.2 - 1.3 05/22/2017 [facility] CHEM PANEL Bili Indirect 0.2 0.0 - 1.0 05/22/2017 [facility] CHEM PANEL Bili Direct 0.1 0.0 - 0.3 05/22/2017 [facility] CHEM PANEL Alk Phos 104 39 - 136 05/22/2017 [facility] CHEM PANEL ALT 15 0 - 65 05/22/2017 [facility] CHEM PANEL AST 11 0 - 37 05/22/2017 [facility] CHEM PANEL Lipase Lvl 43 73 - 393 05/22/2017 [facility] CHEM PANEL Lactic Acid Lvl 0.9 0.5 - 2.2 05/22/2017 [facility] HEMATOLOGY PTT 36.0 22.9 - 35.8 05/22/2017 [facility] HEMATOLOGY PT 15.1 12.0 - 14.7 05/22/2017 [facility] HEMATOLOGY INR 1.18 0.85 - 1.17 05/22/2017 [facility] MOLECULAR DIAGNOSTIC KPC (carbapenem ase) Not Detected (05/22/17 2:11 AM) Not Detected 05/22/2017 [facility] MOLECULAR DIAGNOSTIC OXA (carbapenem ase) Not Detected (05/22/17 2:11 AM) Not Detected 05/22/2017 [facility] DIAGNOSTIC NDM (carbapenem ase) Not Detected (05/22/17 2:11 AM) Not Detected 05/22/2017 [facility] MOLECULAR DIAGNOSTIC VIM (carbapenem ase) Not Detected (05/22/17 2:11 AM) Not Detected 05/22/2017 [facility] DIAGNOSTIC Citrobacter spp . Not Detected (05/22/17 2:11 AM) Not Detected 05/22/2017 [facility] MOLECULAR DIAGNOSTIC Proteus spp. Not Detected (05/22/17 2:11 AM) Not Detected 05/22/2017 [facility] MOLECULAR DIAGNOSTIC Enterobacter sp p. Not Detected (05/22/17 2:11 AM) Not Detected 05/22/2017 [facility] MOLECULAR DIAGNOSTIC IMP (carbapenem ase) Not Detected (05/22/17 2:11 AM) Not Detected 05/22/2017 [facility] MOLECULAR DIAGNOSTIC CTX-M (ESBL) Detected *ABN* (05/22/17 2:11 AM) Not Detected 05/22/2017 [facility] MOLECULAR DIAGNOSTIC K. oxytoca Not Detected (05/22/17 2:11 AM) Not Detected 05/22/2017 [facility] MOLECULAR DIAGNOSTIC E. coli Detected *ABN* (05/22/17 2:11 AM) Not Detected 05/22/2017 [facility] MOLECULAR DIAGNOSTIC P. aeruginosa Not Detected (05/22/17 2:11 AM) Not Detected 05/22/2017 [facility] MOLECULAR DIAGNOSTIC K. pneumoniae Not Detected (05/22/17 2:11 AM) Not Detected 05/22/2017 [facility] MOLECULAR DIAGNOSTIC Acinetobacter s pp. Not Detected (05/22/17 2:11 AM) Not Detected 05/22/2017 [facility] URINE AND STOOL UA Urobilinogen <=1.0 mg/dL 0.1 - 1.0 05/22/2017 [facility] URINE AND STOOL UA Sq Epi None Seen 05/22/2017 [facility] URINE AND STOOL UA Color Yellow 05/22/2017 [facility] URINE AND STOOL UA WBC >182 0 - 5 05/22/2017 [facility] URINE AND STOOL UA RBC 110 0 - 2 05/22/2017 [facility] URINE AND STOOL UA Nitrite Positive *ABN* (05/22/17 2:11 AM) Negative 05/22/2017 [facility] URINE AND STOOL UA Bacteria Moderate /HPF None Seen /HPF 05/22/2017 [facility] URINE AND STOOL UA Mucus Few /LPF None Seen /LPF 05/22/2017 [facility] URINE AND STOOL UA Blood Moderate *ABN* (05/22/17 2:11 AM) Negative 05/22/2017 [facility] URINE AND STOOL UA Protein 100 mg/dL Negative mg/dL 05/22/2017 [facility] URINE AND STOOL UA Bili Negative *NA* (05/22/17 2:11 AM) Negative 05/22/2017 [facility] URINE AND STOOL UA Glucose Negative mg/dL Negative mg/dL 05/22/2017 [facility] URINE AND STOOL UA Leuk Est Large *ABN* (05/22/17 2:11 AM) Negative 05/22/2017 [facility] URINE AND STOOL UA Ketones Negative mg/dL Negative mg/dL 05/22/2017 [facility] URINE AND STOOL UA Turbidity Moderate *ABN* (05/22/17 2:11 AM) Clear 05/22/2017 [facility] URINE AND STOOL UA pH 6.0 5.0 - 8.0 05/22/2017 [facility] URINE AND STOOL UA Spec Grav 1.009 <=1.030 05/22/2017 [facility] HEMATOLOGY Eosinophils 7.1 0.0 - 4.0 03/06/2017 [facility] HEMATOLOGY Basophils 0.8 0.0 - 1.0 03/06/2017 [facility] HEMATOLOGY Segs 43.1 45.0 - 75.0 03/06/2017 [facility] HEMATOLOGY Lymphocytes 37.5 20.0 - 40.0 03/06/2017 [facility] HEMATOLOGY Monocytes 11.5 2.0 - 12.0 03/06/2017 [facility] HEMATOLOGY Eosinophils # 0.3 0.0 - 0.5 03/06/2017 [facility] HEMATOLOGY Segs-Bands # 1.9 1.5 - 8.1 03/06/2017 [facility] HEMATOLOGY Lymphocytes # 1.7 1.0 - 5.5 03/06/2017 [facility] HEMATOLOGY Monocytes # 0.5 0.0 - 0.8 03/06/2017 [facility] HEMATOLOGY MPV 8.3 7.4 - 10.4 03/06/2017 [facility] HEMATOLOGY MCH 28.1 27.0 - 31.0 03/06/2017 [facility] HEMATOLOGY MCHC 32.9 32.0 - 36.0 03/06/2017 [facility] HEMATOLOGY RDW 18.2 11.5 - 14.5 03/06/2017 [facility] HEMATOLOGY Platelet 184 133 - 450 03/06/2017 [facility] HEMATOLOGY Hgb 7.9 14.0 - 18.0 03/06/2017 [facility] HEMATOLOGY Hct 24.1 42.0 - 54.0 03/06/2017 [facility] HEMATOLOGY MCV 85.3 80.0 - 94.0 03/06/2017 [facility] HEMATOLOGY WBC 4.4 3.7 - 10.4 03/06/2017 [facility] HEMATOLOGY RBC 2.83 4.70 - 6.10 03/06/2017 [facility] CHEM PANEL A/G Ratio 0.5 0.7 - 1.6 03/05/2017 [facility] CHEM PANEL Globulin 4.6 2.7 - 4.2 03/05/2017 [facility] CHEM PANEL AGAP 13.7 10.0 - 20.0 03/05/2017 [facility] CHEM PANEL B/C Ratio 19 6 - 25 03/05/2017 [facility] CHEM PANEL eGFR 76 03/05/2017 Result Comment: The eGFR is calculated using the CKD-EPI formula. In most young, healthy individuals the eGFR will be >90 mL/min/1.73m2. The eGFR declines with age. An eGFR of 60-89 may be normal in some populations, particularly the elderly, for whom the CKD-EPI formula has not been extensively validated. Use of the eGFR is not recommended in the following populations:

Individuals with unstable creatinine concentrations, including patients and those with serious co-morbid conditions.

Patients with extremes in muscle mass or diet.

The data above are obtained from the National Kidney Disease Education Program (NKDEP) which additionally recommends that when the eGFR is used in patients with extremes of body mass index for purposes of drug dosing, the eGFR should be multiplied by the estimated BMI. [facility] CHEM PANEL Chloride Lvl 99 95 - 109 03/05/2017 [facility] CHEM PANEL CO2 27 24 - 32 03/05/2017 [facility] CHEM PANEL Albumin Lvl 2.4 3.5 - 5.0 03/05/2017 [facility] CHEM PANEL ALT 19 0 - 65 03/05/2017 [facility] CHEM PANEL AST 22 0 - 37 03/05/2017 [facility] CHEM PANEL Bili Total 0.2 0.2 - 1.3 03/05/2017 [facility] CHEM PANEL Alk Phos 107 39 - 136 03/05/2017 [facility] CHEM PANEL Glucose Lvl 100 70 - 99 03/05/2017 [facility] CHEM PANEL Potassium Lvl 4.7 3.5 - 5.1 03/05/2017 [facility] CHEM PANEL Sodium Lvl 135 135 - 145 03/05/2017 [facility] CHEM PANEL Calcium Lvl 9.1 8.5 - 10.5 03/05/2017 [facility] CHEM PANEL Total Protein 7.0 6.4 - 8.4 03/05/2017 [facility] CHEM PANEL Creatinine Lvl 1.24 0.50 - 1.40 03/05/2017 [facility] CHEM PANEL BUN 23 7 - 22 03/05/2017 [facility] HEMATOLOGY Monocytes # 1.0 0.0 - 0.8 03/05/2017 [facility] HEMATOLOGY Eosinophils # 0.3 0.0 - 0.5 03/05/2017 [facility] HEMATOLOGY RBC Morph Leeann l (03/05/17 5:56 AM) 03/05/2017 [facility] HEMATOLOGY Eosinophils 6.0 0.0 - 4.0 03/05/2017 [facility] HEMATOLOGY Monocytes 19.2 2.0 - 12.0 03/05/2017 [facility] HEMATOLOGY Segs 40.8 45.0 - 75.0 03/05/2017 [facility] HEMATOLOGY Lymphocytes 33.3 20.0 - 40.0 03/05/2017 [facility] HEMATOLOGY Plt Morph Leeann l (03/05/17 5:56 AM) 03/05/2017 [facility] HEMATOLOGY Lymphocytes # 1.7 1.0 - 5.5 03/05/2017 [facility] HEMATOLOGY Basophils 0.7 0.0 - 1.0 03/05/2017 [facility] HEMATOLOGY Segs-Bands # 2.0 1.5 - 8.1 03/05/2017 [facility] HEMATOLOGY MPV 8.6 7.4 - 10.4 03/05/2017 [facility] HEMATOLOGY MCV 85.1 80.0 - 94.0 03/05/2017 [facility] HEMATOLOGY MCH 27.6 27.0 - 31.0 03/05/2017 [facility] HEMATOLOGY RDW 17.8 11.5 - 14.5 03/05/2017 [facility] HEMATOLOGY Hct 25.6 42.0 - 54.0 03/05/2017 [facility] HEMATOLOGY MCHC 32.4 32.0 - 36.0 03/05/2017 [facility] HEMATOLOGY Hgb 8.3 14.0 - 18.0 03/05/2017 [facility] HEMATOLOGY RBC 3.01 4.70 - 6.10 03/05/2017 [facility] HEMATOLOGY Platelet 181 133 - 450 03/05/2017 [facility] HEMATOLOGY WBC 5.0 3.7 - 10.4 03/05/2017 [facility] HEMATOLOGY MCV 86.0 80.0 - 94.0 03/03/2017 [facility] HEMATOLOGY Hct 26.9 42.0 - 54.0 03/03/2017 [facility] HEMATOLOGY MPV 8.3 7.4 - 10.4 03/03/2017 [facility] HEMATOLOGY Platelet 234 133 - 450 03/03/2017 [facility] HEMATOLOGY RDW 17.1 11.5 - 14.5 03/03/2017 [facility] HEMATOLOGY MCH 28.7 27.0 - 31.0 03/03/2017 [facility] HEMATOLOGY MCHC 33.4 32.0 - 36.0 03/03/2017 [facility] HEMATOLOGY WBC 5.5 3.7 - 10.4 03/03/2017 [facility] HEMATOLOGY Hgb 9.0 14.0 - 18.0 03/03/2017 [facility] HEMATOLOGY RBC 3.13 4.70 - 6.10 03/03/2017 [facility] HEMATOLOGY Lymphocytes 31.1 20.0 - 40.0 03/03/2017 [facility] HEMATOLOGY Segs 49.8 45.0 - 75.0 03/03/2017 [facility] HEMATOLOGY Eosinophils # 0.4 0.0 - 0.5 03/03/2017 [facility] HEMATOLOGY Monocytes # 0.6 0.0 - 0.8 03/03/2017 [facility] HEMATOLOGY Basophils # 0.1 0.0 - 0.2 03/03/2017 [facility] HEMATOLOGY Eosinophils 6.5 0.0 - 4.0 03/03/2017 [facility] HEMATOLOGY Monocytes 11.5 2.0 - 12.0 03/03/2017 [facility] HEMATOLOGY Segs-Bands # 2.7 1.5 - 8.1 03/03/2017 [facility] HEMATOLOGY Basophils 1.1 0.0 - 1.0 03/03/2017 [facility] HEMATOLOGY Lymphocytes # 1.7 1.0 - 5.5 03/03/2017 [facility] CHEM PANEL eGFR 68 03/02/2017 Result Comment: The eGFR is calculated using the CKD-EPI formula. In most young, healthy individuals the eGFR will be >90 mL/min/1.73m2. The eGFR declines with age. An eGFR of 60-89 may be normal in some populations, particularly the elderly, for whom the CKD-EPI formula has not been extensively validated. Use of the eGFR is not recommended in the following populations:

Individuals with unstable creatinine concentrations, including patients and those with serious co-morbid conditions.

Patients with extremes in muscle mass or diet.

The data above are obtained from the National Kidney Disease Education Program (NKDEP) which additionally recommends that when the eGFR is used in patients with extremes of body mass index for purposes of drug dosing, the eGFR should be multiplied by the estimated BMI. [facility] CHEM PANEL Globulin 4.8 2.7 - 4.2 03/02/2017 [facility] CHEM PANEL AST 14 0 - 37 03/02/2017 [facility] CHEM PANEL A/G Ratio 0.5 0.7 - 1.6 03/02/2017 [facility] CHEM PANEL ALT 13 0 - 65 03/02/2017 [facility] CHEM PANEL Alk Phos 122 39 - 136 03/02/2017 [facility] CHEM PANEL Bili Total 0.2 0.2 - 1.3 03/02/2017 [facility] CHEM PANEL Potassium Lvl 5.1 3.5 - 5.1 03/02/2017 [facility] CHEM PANEL Chloride Lvl 105 95 - 109 03/02/2017 [facility] CHEM PANEL Sodium Lvl 138 135 - 145 03/02/2017 [facility] CHEM PANEL CO2 28 24 - 32 03/02/2017 [facility] CHEM PANEL AGAP 10.1 10.0 - 20.0 03/02/2017 [facility] CHEM PANEL Calcium Lvl 8.9 8.5 - 10.5 03/02/2017 [facility] CHEM PANEL B/C Ratio 18 6 - 25 03/02/2017 [facility] CHEM PANEL Glucose Lvl 98 70 - 99 03/02/2017 [facility] CHEM PANEL BUN 25 7 - 22 03/02/2017 [facility] CHEM PANEL Creatinine Lvl 1.36 0.50 - 1.40 03/02/2017 [facility] CHEM PANEL Albumin Lvl 2.4 3.5 - 5.0 03/02/2017 [facility] CHEM PANEL Total Protein 7.2 6.4 - 8.4 03/02/2017 [facility] CHEM PANEL Magnesium Lvl 1.5 1.8 - 2.4 03/02/2017 [facility] CHEM PANEL Phosphorus 3.0 2.5 - 4.5 03/02/2017 [facility] HEMATOLOGY Basophils # 0.1 0.0 - 0.2 03/02/2017 [facility] URINE AND STOOL UA Sq Epi RARE 03/01/2017 [facility] URINE AND STOOL UA Urobilinogen <=1.0 mg/dL 0.1 - 1.0 03/01/2017 [facility] URINE AND STOOL Micro? Performed *NA* (03/01/17 12:53 PM) 03/01/2017 [facility] URINE AND STOOL UA Clay Yeast Occasional /HPF None Seen /HPF 03/01/[address] [facility] [place] [place] URINE AND STOOL UA Bacteria Occasional /HPF None Seen /HPF 03/01/[address] [facility] [place] [place] URINE AND STOOL UA RBC 2 0 - 2 03/01/2017 [facility] URINE AND STOOL UA Blood Negative (03/01/17 12:53 PM) Negative 03/01/2017 [facility] URINE AND STOOL UA Leuk Est Large *ABN* (03/01/17 12:53 PM) Negative 03/01/2017 [facility] URINE AND STOOL UA Hyph Yeast Occasional *ABN* (03/01/17 12:53 PM) None Seen 03/01/2017 [facility] URINE AND STOOL UA WBC 23 0 - 5 03/01/2017 [facility] URINE AND STOOL UA Nitrite Negative (03/01/17 12:53 PM) Negative 03/01/2017 [facility] URINE AND STOOL UA Color Light Yellow *NA* (03/01/17 12:53 PM) Yellow 03/01/2017 [facility] URINE AND STOOL UA Glucose Negative mg/dL Negative mg/dL 03/01/[address] [facility] [place] [place] URINE AND STOOL UA Ketones Negative mg/dL Negative mg/dL 03/01/[address] [facility] [place] [place] URINE AND STOOL UA Protein Negative mg/dL Negative mg/dL 03/01/[address] [facility] [place] [place] URINE AND STOOL UA Turbidity Clear (03/01/17 12:53 PM) Clear 03/01/2017 [facility] URINE AND STOOL UA Bili Negative *NA* (03/01/17 12:53 PM) Negative 03/01/2017 [facility] URINE AND STOOL UA Spec Grav 1.006 <=1.030 03/01/2017 [facility] URINE AND STOOL UA pH 6.0 5.0 - 8.0 03/01/2017 [facility] CHEM PANEL BUN 22 7 - 22 03/01/2017 [facility] CHEM PANEL Glucose Lvl 91 70 - 99 03/01/2017 [facility] CHEM PANEL CO2 26 24 - 32 03/01/2017 [facility] CHEM PANEL Creatinine Lvl 1.33 0.50 - 1.40 03/01/2017 [facility] CHEM PANEL Sodium Lvl 141 135 - 145 03/01/2017 [facility] CHEM PANEL Potassium Lvl 5.0 3.5 - 5.1 03/01/2017 [facility] CHEM PANEL Chloride Lvl 106 95 - 109 03/01/2017 [facility] CHEM PANEL eGFR 70 03/01/2017 Result Comment: The eGFR is calculated using the CKD-EPI formula. In most young, healthy individuals the eGFR will be >90 mL/min/1.73m2. The eGFR declines with age. An eGFR of 60-89 may be normal in some populations, particularly the elderly, for whom the CKD-EPI formula has not been extensively validated. Use of the eGFR is not recommended in the following populations:

Individuals with unstable creatinine concentrations, including patients and those with serious co-morbid conditions.

Patients with extremes in muscle mass or diet.

The data above are obtained from the National Kidney Disease Education Program (NKDEP) which additionally recommends that when the eGFR is used in patients with extremes of body mass index for purposes of drug dosing, the eGFR should be multiplied by the estimated BMI. [facility] CHEM PANEL Bili Total 0.1 0.2 - 1.3 03/01/2017 [facility] CHEM PANEL ALT 14 0 - 65 03/01/2017 [facility] CHEM PANEL Calcium Lvl 8.7 8.5 - 10.5 03/01/2017 [facility] CHEM PANEL Albumin Lvl 2.4 3.5 - 5.0 03/01/2017 [facility] CHEM PANEL AST 10 0 - 37 03/01/2017 [facility] CHEM PANEL Total Protein 6.4 6.4 - 8.4 03/01/2017 [facility] CHEM PANEL Alk Phos 126 39 - 136 03/01/2017 [facility] CHEM PANEL B/C Ratio 17 6 - 25 03/01/2017 [facility] CHEM PANEL Globulin 4.0 2.7 - 4.2 03/01/2017 [facility] CHEM PANEL AGAP 14.0 10.0 - 20.0 03/01/2017 [facility] CHEM PANEL A/G Ratio 0.6 0.7 - 1.6 03/01/2017 [facility] CHEM PANEL Magnesium Lvl 2.1 1.8 - 2.4 03/01/2017 [facility] CHEM PANEL Phosphorus 3.4 2.5 - 4.5 03/01/2017 [facility] HEMATOLOGY Basophils # 0.1 0.0 - 0.2 03/01/2017 [facility] CHEM PANEL Phosphorus 3.4 2.5 - 4.5 02/28/2017 [facility] CHEM PANEL Magnesium Lvl 1.5 1.8 - 2.4 02/28/2017 [facility] IMMUNOLOGY HIV Ag/Ab 4th Gen Negat pavel *NA* (02/25/17 1:32 AM) Negative 02/25/2017 [facility] IMMUNOLOGY Hep C Ab Posit pavel *ABN* (02/25/17 1:32 AM) 02/25/2017 [facility] IMMUNOLOGY Hep A Tot Negat pavel *NA* (02/25/17 1:32 AM) Negative 02/25/2017 [facility] IMMUNOLOGY Hep Bs Ab <3.1 <=7.4 mIU/mL 02/25/2017 [facility] IMMUNOLOGY Hep Bs Ag Negat pavel *NA* (02/25/17 1:32 AM) Negative 02/25/2017 [facility] IMMUNOLOGY Hep B Core Ab Negat pavel *NA* (02/25/17 1:32 AM) Negative 02/25/2017 [facility] MOLECULAR DIAGNOSTIC HCV RNA VirLoad Not Detected (02/25/17 1:32 AM) 02/25/2017 [facility] MOLECULAR DIAGNOSTIC HCV RNA Log10 <1.2 02/25/2017 [facility] TOXICOLOGY Vanco Tr TND 0200 02/25/2017 [facility] TOXICOLOGY Vanco Tr 32.4 02/25/2017 [facility] MOLECULAR DIAGNOSTIC C difficile DNA Negative (02/24/17 4:02 PM) Negative 02/24/2017 [facility] URINE AND STOOL UA Sq Epi None Seen 02/24/2017 [facility] URINE AND STOOL UA RBC 2 0 - 2 02/24/2017 [facility] URINE AND STOOL UA Mucus Few /LPF None Seen /LPF 02/24/2017 [facility] URINE AND STOOL UA Bacteria Few /HPF None Seen /HPF 02/24/2017 [facility] URINE AND STOOL UA Urobilinogen <=1.0 mg/dL 0.1 - 1.0 02/24/2017 [facility] URINE AND STOOL UA Color Light Yellow *NA* (02/24/17 4:02 PM) Yellow 02/24/2017 [facility] URINE AND STOOL UA Nitrite Negative (02/24/17 4:02 PM) Negative 02/24/2017 [facility] URINE AND STOOL UA Ketones Negative mg/dL Negative mg/dL 02/24/[address] [facility] [place] [place] URINE AND STOOL UA Blood Trace *ABN* (02/24/17 4:02 PM) Negative 02/24/2017 [facility] URINE AND STOOL UA Bili Negative *NA* (02/24/17 4:02 PM) Negative 02/24/2017 [facility] URINE AND STOOL UA Glucose Negative mg/dL Negative mg/dL 02/24/[address] [facility] [place] [place] URINE AND STOOL UA Turbidity Slight *ABN* (02/24/17 4:02 PM) Clear 02/24/2017 [facility] URINE AND STOOL UA Spec Grav 1.016 <=1.030 02/24/2017 [facility] URINE AND STOOL UA pH 7.0 5.0 - 8.0 02/24/2017 [facility] URINE AND STOOL UA Protein 50 mg/dL Negative mg/dL 02/24/2017 [facility] URINE AND STOOL UA WBC 64 0 - 5 02/24/2017 [facility] URINE AND STOOL UA Leuk Est Large *ABN* (02/24/17 4:02 PM) Negative 02/24/2017 [facility] HEMATOLOGY INR 1.18 0.85 - 1.17 02/24/2017 [facility] HEMATOLOGY PT 15.2 12.0 - 14.7 02/24/2017 [facility] HEMATOLOGY PTT 35.6 22.9 - 35.8 02/24/2017 [facility] CHEM PANEL Lactic Acid Lvl 1.6 0.5 - 2.2 02/23/2017 [facility] CHEM PANEL Bili Direct 0.0 0.0 - 0.3 02/23/2017 [facility] CHEM PANEL Bili Indirect 0.5 0.0 - 1.0 02/23/2017 [facility] URINE AND STOOL UA Ketones 15 mg/dL Negative mg/dL 02/23/2017 [facility] URINE AND STOOL UA Blood Large *ABN* (02/23/17 2:15 PM) Negative 02/23/2017 [facility] URINE AND STOOL UA Bili Negative (02/23/17 2:15 PM) Negative 02/23/2017 [facility] URINE AND STOOL UA Protein 100 mg/dL Negative mg/dL 02/23/2017 [facility] URINE AND STOOL UA Glucose Negative (02/23/17 2:15 PM) Negative 02/23/2017 [facility] URINE AND STOOL UA Color Yellow (02/23/17 2:15 PM) Yellow 02/23/2017 [facility] URINE AND STOOL UA Turbidity Cloudy *ABN* (02/23/17 2:15 PM) Clear 02/23/2017 [facility] URINE AND STOOL UA pH 7.0 5.0 - 8.0 02/23/2017 [facility] URINE AND STOOL UA Spec Grav 1.030 <=1.030 02/23/2017 [facility] URINE AND STOOL UA Leuk Est Large *ABN* (02/23/17 2:15 PM) Negative 02/23/2017 [facility] URINE AND STOOL UA Urobilinogen 0.2 0.1 - 1.0 02/23/2017 [facility] URINE AND STOOL UA Nitrite Positive *ABN* (02/23/17 2:15 PM) Negative 02/23/2017 [facility] URINE AND STOOL UA RBC 6-10 /HPF 0 - 2 02/23/2017 [facility] URINE AND STOOL UA Sq Epi Occasional /LPF Few /LPF 02/23/2017 [facility] URINE AND STOOL UA WBC >100 /HPF None Seen /HPF 02/23/2017 [facility] URINE AND STOOL UA Bacteria Many /HPF None Seen /HPF 02/23/2017 [facility] CHEM PANEL eGFR 80 01/18/2017 Result Comment: The eGFR is calculated using the CKD-EPI formula. In most young, healthy individuals the eGFR will be >90 mL/min/1.73m2. The eGFR declines with age. An eGFR of 60-89 may be normal in some populations, particularly the elderly, for whom the CKD-EPI formula has not been extensively validated. Use of the eGFR is not recommended in the following populations:

Individuals with unstable creatinine concentrations, including patients and those with serious co-morbid conditions.

Patients with extremes in muscle mass or diet.

The data above are obtained from the National Kidney Disease Education Program (NKDEP) which additionally recommends that when the eGFR is used in patients with extremes of body mass index for purposes of drug dosing, the eGFR should be multiplied by the estimated BMI. [facility] CHEM PANEL CO2 21 24 - 32 01/18/2017 [facility] CHEM PANEL Chloride Lvl 111 95 - 109 01/18/2017 [facility] CHEM PANEL Calcium Lvl 8.8 8.5 - 10.5 01/18/2017 [facility] CHEM PANEL Sodium Lvl 139 135 - 145 01/18/2017 [facility] CHEM PANEL Potassium Lvl 4.2 3.5 - 5.1 01/18/2017 [facility] CHEM PANEL Creatinine Lvl 1.20 0.50 - 1.40 01/18/2017 [facility] CHEM PANEL BUN 22 7 - 22 01/18/2017 [facility] CHEM PANEL Glucose Lvl 90 70 - 99 01/18/2017 [facility] CHEM PANEL AGAP 11.2 10.0 - 20.0 01/18/2017 [facility] MPV 8.5 7.4 - 10.4 01/18/2017 [facility] Platelet 202 133 - 450 01/18/2017 [facility] HEMATOLOGY MCV 86.2 80.0 - 94.0 01/18/2017 [facility] Hct 30.6 42.0 - 54.0 01/18/2017 [facility] Hgb 10.0 14.0 - 18.0 01/18/2017 [facility] RBC 3.55 4.70 - 6.10 01/18/2017 [facility] WBC 8.6 3.7 - 10.4 01/18/2017 [facility] MCH 28.0 27.0 - 31.0 01/18/2017 [facility] RDW 17.1 11.5 - 14.5 01/18/2017 [facility] MCHC 32.5 32.0 - 36.0 01/18/2017 [facility] HEMATOLOGY Basophils 1.1 0.0 - 1.0 01/18/2017 [facility] HEMATOLOGY Segs-Bands # 3.6 1.5 - 8.1 01/18/2017 [facility] HEMATOLOGY Monocytes # 0.8 0.0 - 0.8 01/18/2017 [facility] HEMATOLOGY Lymphocytes # 3.7 1.0 - 5.5 01/18/2017 [facility] HEMATOLOGY Eosinophils # 0.4 0.0 - 0.5 01/18/2017 [facility] HEMATOLOGY Monocytes 9.1 2.0 - 12.0 01/18/2017 [facility] HEMATOLOGY Lymphocytes 42.8 20.0 - 40.0 01/18/2017 [facility] HEMATOLOGY Eosinophils 4.9 0.0 - 4.0 01/18/2017 [facility] HEMATOLOGY Basophils # 0.1 0.0 - 0.2 01/18/2017 [facility] HEMATOLOGY Segs 42.1 45.0 - 75.0 01/18/2017 [facility] CHEM PANEL eGFR 89 01/17/2017 Result Comment: The eGFR is calculated using the CKD-EPI formula. In most young, healthy individuals the eGFR will be >90 mL/min/1.73m2. The eGFR declines with age. An eGFR of 60-89 may be normal in some populations, particularly the elderly, for whom the CKD-EPI formula has not been extensively validated. Use of the eGFR is not recommended in the following populations:

Individuals with unstable creatinine concentrations, including patients and those with serious co-morbid conditions.

Patients with extremes in muscle mass or diet.

The data above are obtained from the National Kidney Disease Education Program (NKDEP) which additionally recommends that when the eGFR is used in patients with extremes of body mass index for purposes of drug dosing, the eGFR should be multiplied by the estimated BMI. [facility] CHEM PANEL AST 8 0 - 37 01/17/2017 [facility] CHEM PANEL Alk Phos 97 39 - 136 01/17/2017 [facility] CHEM PANEL Bili Total 0.1 0.2 - 1.3 01/17/2017 [facility] CHEM PANEL Potassium Lvl 3.7 3.5 - 5.1 01/17/2017 [facility] CHEM PANEL Sodium Lvl 140 135 - 145 01/17/2017 [facility] CHEM PANEL Chloride Lvl 112 95 - 109 01/17/2017 [facility] CHEM PANEL CO2 25 24 - 32 01/17/2017 [facility] CHEM PANEL AGAP 6.7 10.0 - 20.0 01/17/2017 [facility] CHEM PANEL B/C Ratio 15 6 - 25 01/17/2017 [facility] CHEM PANEL Calcium Lvl 9.1 8.5 - 10.5 01/17/2017 [facility] CHEM PANEL Total Protein 7.3 6.4 - 8.4 01/17/2017 [facility] CHEM PANEL Albumin Lvl 2.7 3.5 - 5.0 01/17/2017 [facility] CHEM PANEL Globulin 4.6 2.7 - 4.2 01/17/2017 [facility] CHEM PANEL A/G Ratio 0.6 0.7 - 1.6 01/17/2017 [facility] CHEM PANEL ALT 8 0 - 65 01/17/2017 [facility] CHEM PANEL BUN 16 7 - 22 01/17/2017 [facility] CHEM PANEL Creatinine Lvl 1.10 0.50 - 1.40 01/17/2017 [facility] CHEM PANEL Glucose Lvl 100 70 - 99 01/17/2017 [facility] CHEM PANEL Phosphorus 2.8 2.5 - 4.5 01/17/2017 [facility] HEMATOLOGY Platelet 212 133 - 450 01/17/2017 [facility] HEMATOLOGY MPV 8.3 7.4 - 10.4 01/17/2017 [facility] HEMATOLOGY WBC 5.7 3.7 - 10.4 01/17/2017 [facility] HEMATOLOGY Hgb 9.0 14.0 - 18.0 01/17/2017 [facility] HEMATOLOGY RBC 3.19 4.70 - 6.10 01/17/2017 [facility] HEMATOLOGY Hct 27.2 42.0 - 54.0 01/17/2017 [facility] HEMATOLOGY MCH 28.1 27.0 - 31.0 01/17/2017 [facility] HEMATOLOGY RDW 17.3 11.5 - 14.5 01/17/2017 [facility] HEMATOLOGY MCV 85.3 80.0 - 94.0 01/17/2017 [facility] HEMATOLOGY MCHC 32.9 32.0 - 36.0 01/17/2017 [facility] HEMATOLOGY Eosinophils 5.1 0.0 - 4.0 01/17/2017 [facility] HEMATOLOGY Basophils 1.0 0.0 - 1.0 01/17/2017 [facility] HEMATOLOGY Segs-Bands # 2.7 1.5 - 8.1 01/17/2017 [facility] Lymphocytes # 2.2 1.0 - 5.5 01/17/2017 [facility] HEMATOLOGY Monocytes # 0.4 0.0 - 0.8 01/17/2017 [facility] HEMATOLOGY Eosinophils # 0.3 0.0 - 0.5 01/17/2017 [facility] HEMATOLOGY Basophils # 0.1 0.0 - 0.2 01/17/2017 [facility] HEMATOLOGY Segs 47.7 45.0 - 75.0 01/17/2017 [facility] HEMATOLOGY Monocytes 7.7 2.0 - 12.0 01/17/2017 [facility] Lymphocytes 38.5 20.0 - 40.0 01/17/2017 [facility] CHEM PANEL Lactic Acid Lvl 0.8 0.5 - 2.2 01/16/2017 [facility] CARDIAC ENZYMES Troponin-I <0.02 0.00 - 0.40 01/16/2017 [facility] CARDIAC ENZYMES Total CK 47 12 - 191 01/16/2017 [facility] CARDIAC ENZYMES CK MB <0.5 0.5 - 3.6 01/16/2017 [facility] CARDIAC ENZYMES CK MB Index <1.1 0.0 - 2.5 01/16/2017 [facility] CHEM PANEL Lipase Lvl 115 73 - 393 01/16/2017 [facility] CHEM PANEL Magnesium Lvl 1.5 1.8 - 2.4 01/16/2017 [facility] CHEM PANEL eGFR 73 01/16/2017 Result Comment: The eGFR is calculated using the CKD-EPI formula. In most young, healthy individuals the eGFR will be >90 mL/min/1.73m2. The eGFR declines with age. An eGFR of 60-89 may be normal in some populations, particularly the elderly, for whom the CKD-EPI formula has not been extensively validated. Use of the eGFR is not recommended in the following populations:

Individuals with unstable creatinine concentrations, including patients and those with serious co-morbid conditions.

Patients with extremes in muscle mass or diet.

The data above are obtained from the National Kidney Disease Education Program (NKDEP) which additionally recommends that when the eGFR is used in patients with extremes of body mass index for purposes of drug dosing, the eGFR should be multiplied by the estimated BMI. [facility] CHEM PANEL A/G Ratio 0.6 0.7 - 1.6 01/16/2017 [facility] CHEM PANEL Glucose Lvl 84 70 - 99 01/16/2017 [facility] CHEM PANEL BUN 22 7 - 22 01/16/2017 [facility] CHEM PANEL Sodium Lvl 136 135 - 145 01/16/2017 [facility] CHEM PANEL Creatinine Lvl 1.30 0.50 - 1.40 01/16/2017 [facility] CHEM PANEL Albumin Lvl 3.8 3.5 - 5.0 01/16/2017 [facility] CHEM PANEL Total Protein 9.9 6.4 - 8.4 01/16/2017 [facility] CHEM PANEL Calcium Lvl 10.4 8.5 - 10.5 01/16/2017 [facility] CHEM PANEL ALT 11 0 - 65 01/16/2017 [facility] CHEM PANEL Chloride Lvl 103 95 - 109 01/16/2017 [facility] CHEM PANEL CO2 22 24 - 32 01/16/2017 [facility] CHEM PANEL Globulin 6.1 2.7 - 4.2 01/16/2017 [facility] CHEM PANEL B/C Ratio 17 6 - 25 01/16/2017 [facility] CHEM PANEL AGAP 14.8 10.0 - 20.0 01/16/2017 [facility] CHEM PANEL Alk Phos 142 39 - 136 01/16/2017 [facility] CHEM PANEL Bili Total 0.5 0.2 - 1.3 01/16/2017 [facility] CHEM PANEL AST 7 0 - 37 01/16/2017 [facility] CHEM PANEL Potassium Lvl 3.8 3.5 - 5.1 01/16/2017 [facility] HEMATOLOGY RBC 4.28 4.70 - 6.10 01/16/2017 [facility] HEMATOLOGY WBC 15.8 3.7 - 10.4 01/16/2017 [facility] HEMATOLOGY Platelet 310 133 - 450 01/16/2017 [facility] HEMATOLOGY MCHC 32.9 32.0 - 36.0 01/16/2017 [facility] HEMATOLOGY MPV 8.0 7.4 - 10.4 01/16/2017 [facility] HEMATOLOGY RDW 17.5 11.5 - 14.5 01/16/2017 [facility] HEMATOLOGY Hct 36.4 42.0 - 54.0 01/16/2017 [facility] HEMATOLOGY Hgb 12.0 14.0 - 18.0 01/16/2017 [facility] HEMATOLOGY MCH 28.0 27.0 - 31.0 01/16/2017 [facility] HEMATOLOGY MCV 85.1 80.0 - 94.0 01/16/2017 [facility] HEMATOLOGY Basophils 0.4 0.0 - 1.0 01/16/2017 [facility] HEMATOLOGY Eosinophils 0.6 0.0 - 4.0 01/16/2017 [facility] HEMATOLOGY Eosinophils # 0.1 0.0 - 0.5 01/16/2017 [facility] HEMATOLOGY Monocytes # 1.0 0.0 - 0.8 01/16/2017 [facility] HEMATOLOGY Lymphocytes # 2.5 1.0 - 5.5 01/16/2017 [facility] HEMATOLOGY Segs-Bands # 12.1 1.5 - 8.1 01/16/2017 [facility] HEMATOLOGY Lymphocytes 16.1 20.0 - 40.0 01/16/2017 [facility] HEMATOLOGY Monocytes 6.5 2.0 - 12.0 01/16/2017 [facility] HEMATOLOGY Segs 76.4 45.0 - 75.0 01/16/2017 [facility] HEMATOLOGY Basophils # 0.1 0.0 - 0.2 01/16/2017 [facility] URINE AND STOOL UA Urobilinogen <=1.0 mg/dL 0.1 - 1.0 01/16/2017 [facility] URINE AND STOOL UA Sq Epi None Seen 01/16/2017 [facility] URINE AND STOOL UA Ketones Trace mg/dL Negative mg/dL 01/16/2017 [facility] URINE AND STOOL UA Glucose Negative mg/dL Negative mg/dL 01/16/2017 [facility] URINE AND STOOL UA Bili Negative *NA* (01/15/17 11:19 PM) Negative 01/16/2017 [facility] URINE AND STOOL UA Blood Small *ABN* (01/15/17 11:19 PM) Negative 01/16/2017 [facility] URINE AND STOOL UA Nitrite Positive *ABN* (01/15/17 11:19 PM) Negative 01/16/2017 [facility] URINE AND STOOL UA Protein >=300 mg/dL Negative mg/dL 01/16/2017 [facility] URINE AND STOOL UA WBC >182 0 - 5 01/16/2017 [facility] URINE AND STOOL UA RBC 38 0 - 2 01/16/2017 [facility] URINE AND STOOL UA Leuk Est Large *ABN* (01/15/17 11:19 PM) Negative 01/16/2017 [facility] URINE AND STOOL UA Bacteria Many /HPF None Seen /HPF 01/16/2017 [facility] URINE AND STOOL UA Hyph Yeast Occasional *ABN* (01/15/17 11:19 PM) None Seen 01/16/2017 [facility] URINE AND STOOL UA Color Yellow *NA* (01/15/17 11:19 PM) Yellow 01/16/2017 [facility] URINE AND STOOL UA Turbidity Marked *ABN* (01/15/17 11:19 PM) Clear 01/16/2017 [facility] URINE AND STOOL UA Spec Grav 1.014 <=1.030 01/16/2017 [facility] URINE AND STOOL UA pH 6.0 5.0 - 8.0 01/16/2017 [facility] CHEM PANEL eGFR 54 01/04/2017 Result Comment: The eGFR is calculated using the CKD-EPI formula. In most young, healthy individuals the eGFR will be >90 mL/min/1.73m2. The eGFR declines with age. An eGFR of 60-89 may be normal in some populations, particularly the elderly, for whom the CKD-EPI formula has not been extensively validated. Use of the eGFR is not recommended in the following populations:

Individuals with unstable creatinine concentrations, including patients and those with serious co-morbid conditions.

Patients with extremes in muscle mass or diet.

The data above are obtained from the National Kidney Disease Education Program (NKDEP) which additionally recommends that when the eGFR is used in patients with extremes of body mass index for purposes of drug dosing, the eGFR should be multiplied by the estimated BMI. [facility] CHEM PANEL Sodium Lvl 141 135 - 145 01/04/2017 [facility] CHEM PANEL Glucose Lvl 77 70 - 99 01/04/2017 [facility] CHEM PANEL Creatinine Lvl 1.66 0.50 - 1.40 01/04/2017 [facility] CHEM PANEL BUN 37 7 - 22 01/04/2017 [facility] CHEM PANEL AGAP 16.3 10.0 - 20.0 01/04/2017 [facility] CHEM PANEL Potassium Lvl 4.3 3.5 - 5.1 01/04/2017 [facility] CHEM PANEL Calcium Lvl 9.3 8.5 - 10.5 01/04/2017 [facility] CHEM PANEL Chloride Lvl 113 95 - 109 01/04/2017 [facility] CHEM PANEL CO2 16 24 - 32 01/04/2017 [facility] HEMATOLOGY Eosinophils # 0.2 0.0 - 0.5 01/04/2017 [facility] HEMATOLOGY Basophils # 0.1 0.0 - 0.2 01/04/2017 [facility] HEMATOLOGY Lymphocytes 54.7 20.0 - 40.0 01/04/2017 [facility] HEMATOLOGY Segs 33.4 45.0 - 75.0 01/04/2017 [facility] HEMATOLOGY Monocytes # 0.6 0.0 - 0.8 01/04/2017 [facility] HEMATOLOGY Monocytes 8.1 2.0 - 12.0 01/04/2017 [facility] HEMATOLOGY Lymphocytes # 3.8 1.0 - 5.5 01/04/2017 [facility] HEMATOLOGY Basophils 1.0 0.0 - 1.0 01/04/2017 [facility] HEMATOLOGY Eosinophils 2.8 0.0 - 4.0 01/04/2017 [facility] HEMATOLOGY Segs-Bands # 2.3 1.5 - 8.1 01/04/2017 [facility] HEMATOLOGY WBC 7.0 3.7 - 10.4 01/04/2017 [facility] HEMATOLOGY Hgb 8.7 14.0 - 18.0 01/04/2017 [facility] HEMATOLOGY RBC 3.07 4.70 - 6.10 01/04/2017 [facility] HEMATOLOGY MCHC 33.6 32.0 - 36.0 01/04/2017 [facility] HEMATOLOGY MCH 28.4 27.0 - 31.0 01/04/2017 [facility] HEMATOLOGY MCV 84.4 80.0 - 94.0 01/04/2017 [facility] HEMATOLOGY Hct 25.9 42.0 - 54.0 01/04/2017 [facility] HEMATOLOGY RDW 18.9 11.5 - 14.5 01/04/2017 [facility] HEMATOLOGY MPV 8.4 7.4 - 10.4 01/04/2017 [facility] HEMATOLOGY Platelet 341 133 - 450 01/04/2017 [facility] CHEM PANEL Procalcitonin Lvl 0.08 0.00 - 0.10 01/04/2017 [facility] IMMUNOLOGY C-REACTIVE PROTEIN 48.4 <=2.9 mg/L 01/04/2017 [facility] CARDIAC ENZYMES Troponin-T <0.010 0.000 - 0.100 01/02/2017 [facility] CARDIAC ENZYMES Troponin-I <0.015 ng/mL 0.00 - 0.40 01/02/2017 [facility] CARDIAC ENZYMES Total CK 75 12 - 191 01/02/2017 [facility] CARDIAC ENZYMES CK MB 1.1 0.5 - 3.6 01/02/2017 [facility] CARDIAC ENZYMES CK MB Index 1.5 0.0 - 2.5 01/02/2017 [facility] CARDIAC ENZYMES CK MB Index 1.0 0.0 - 2.5 01/02/2017 [facility] CARDIAC ENZYMES CK MB 0.9 0.5 - 3.6 01/02/2017 [facility] CARDIAC ENZYMES Troponin-T <0.010 0.000 - 0.100 01/02/2017 [facility] CARDIAC ENZYMES Troponin-I <0.02 0.00 - 0.40 01/02/2017 [facility] CARDIAC ENZYMES Total CK 94 12 - 191 01/02/2017 [facility] URINE AND STOOL UA WBC 102 0 - 5 01/02/2017 [facility] URINE AND STOOL UA pH 6.0 5.0 - 8.0 01/02/2017 [facility] URINE AND STOOL UA Protein >=300 mg/dL Negative mg/dL 01/02/2017 [facility] URINE AND STOOL UA Glucose Negative mg/dL Negative mg/dL 01/02/[address] [facility] [place] [place] URINE AND STOOL UA Hyph Yeast Occasional *ABN* (01/02/17 6:22 AM) None Seen 01/02/2017 [facility] URINE AND STOOL UA Nitrite Negative (01/02/17 6:22 AM) Negative 01/02/2017 [facility] URINE AND STOOL UA Blood Small *ABN* (01/02/17 6:22 AM) Negative 01/02/2017 [facility] URINE AND STOOL UA Bili Negative *NA* (01/02/17 6:22 AM) Negative 01/02/2017 [facility] URINE AND STOOL UA Leuk Est Large *ABN* (01/02/17 6:22 AM) Negative 01/02/2017 [facility] URINE AND STOOL UA Ketones Negative mg/dL Negative mg/dL 01/02/[address] [facility] [place] [place] URINE AND STOOL UA Urobilinogen <=1.0 mg/dL 0.1 - 1.0 01/02/2017 [facility] URINE AND STOOL UA Gran Cast 9 01/02/2017 [facility] URINE AND STOOL UA Sq Epi None Seen 01/02/2017 [facility] URINE AND STOOL UA Color Yellow *NA* (01/02/17 6:22 AM) Yellow 01/02/2017 [facility] URINE AND STOOL UA Turbidity Marked *ABN* (01/02/17 6:22 AM) Clear 01/02/2017 [facility] URINE AND STOOL UA Spec Grav 1.011 <=1.030 01/02/2017 [facility] URINE AND STOOL UA RBC 3 0 - 2 01/02/2017 [facility] URINE AND STOOL UA Clay Yeast Many /HPF None Seen /HPF 01/02/2017 [facility] URINE AND STOOL UA Amorph Michelle Occasional /HPF None Seen /HPF 01/02/[address] [facility] [place] [place] URINE AND STOOL UA Uric Ac Michelle Moderate /HPF None Seen /HPF 01/02/[address] [facility] [place] [place] CHEM PANEL Magnesium Lvl 1.4 1.8 - 2.4 01/02/2017 [facility] CHEM PANEL Phosphorus 3.6 2.5 - 4.5 01/02/2017 [facility] CHEM PANEL Globulin 5.8 2.7 - 4.2 01/02/2017 [facility] CHEM PANEL AGAP 18.8 10.0 - 20.0 01/02/2017 [facility] CHEM PANEL A/G Ratio 0.6 0.7 - 1.6 01/02/2017 [facility] CHEM PANEL B/C Ratio 25 6 - 25 01/02/2017 [facility] CHEM PANEL eGFR 53 01/02/2017 Result Comment: The eGFR is calculated using the CKD-EPI formula. In most young, healthy individuals the eGFR will be >90 mL/min/1.73m2. The eGFR declines with age. An eGFR of 60-89 may be normal in some populations, particularly the elderly, for whom the CKD-EPI formula has not been extensively validated. Use of the eGFR is not recommended in the following populations:

Individuals with unstable creatinine concentrations, including patients and those with serious co-morbid conditions.

Patients with extremes in muscle mass or diet.

The data above are obtained from the National Kidney Disease Education Program (NKDEP) which additionally recommends that when the eGFR is used in patients with extremes of body mass index for purposes of drug dosing, the eGFR should be multiplied by the estimated BMI. [facility] CHEM PANEL Bili Total 0.3 0.2 - 1.3 01/02/2017 [facility] CHEM PANEL BUN 42 7 - 22 01/02/2017 [facility] CHEM PANEL Creatinine Lvl 1.68 0.50 - 1.40 01/02/2017 [facility] CHEM PANEL Calcium Lvl 8.2 8.5 - 10.5 01/02/2017 [facility] CHEM PANEL Glucose Lvl 95 70 - 99 01/02/2017 [facility] CHEM PANEL Sodium Lvl 140 135 - 145 01/02/2017 [facility] CHEM PANEL Potassium Lvl 3.8 3.5 - 5.1 01/02/2017 [facility] CHEM PANEL Alk Phos 120 39 - 136 01/02/2017 [facility] CHEM PANEL CO2 16 24 - 32 01/02/2017 [facility] CHEM PANEL Chloride Lvl 109 95 - 109 01/02/2017 [facility] CHEM PANEL AST 15 0 - 37 01/02/2017 [facility] CHEM PANEL ALT 14 0 - 65 01/02/2017 [facility] CHEM PANEL Albumin Lvl 3.2 3.5 - 5.0 01/02/2017 [facility] CHEM PANEL Total Protein 9.0 6.4 - 8.4 01/02/2017 [facility] HEMATOLOGY Basophils # 0.1 0.0 - 0.2 01/02/2017 [facility] HEMATOLOGY Eosinophils 0.4 0.0 - 4.0 01/02/2017 [facility] HEMATOLOGY Monocytes # 1.5 0.0 - 0.8 01/02/2017 [facility] HEMATOLOGY Lymphocytes # 3.0 1.0 - 5.5 01/02/2017 [facility] HEMATOLOGY Segs-Bands # 9.0 1.5 - 8.1 01/02/2017 [facility] HEMATOLOGY Basophils 0.5 0.0 - 1.0 01/02/2017 [facility] HEMATOLOGY Monocytes 10.9 2.0 - 12.0 01/02/2017 [facility] HEMATOLOGY Lymphocytes 22.2 20.0 - 40.0 01/02/2017 [facility] HEMATOLOGY Segs 66.0 45.0 - 75.0 01/02/2017 [facility] HEMATOLOGY MPV 8.1 7.4 - 10.4 01/02/2017 [facility] HEMATOLOGY Platelet 477 133 - 450 01/02/2017 [facility] HEMATOLOGY RDW 19.3 11.5 - 14.5 01/02/2017 [facility] HEMATOLOGY MCHC 32.8 32.0 - 36.0 01/02/2017 [facility] HEMATOLOGY MCH 28.1 27.0 - 31.0 01/02/2017 [facility] HEMATOLOGY MCV 85.6 80.0 - 94.0 01/02/2017 [facility] HEMATOLOGY Hct 29.2 42.0 - 54.0 01/02/2017 [facility] HEMATOLOGY Hgb 9.6 14.0 - 18.0 01/02/2017 [facility] HEMATOLOGY RBC 3.41 4.70 - 6.10 01/02/2017 [facility] HEMATOLOGY WBC 13.7 3.7 - 10.4 01/02/2017 [facility] CHEM PANEL Lipase Lvl 79 73 - 393 01/01/2017 [facility] CHEM PANEL Phosphorus 3.5 2.5 - 4.5 01/01/2017 [facility] CHEM PANEL Lactic Acid Lvl 1.1 0.5 - 2.2 01/01/2017 [facility] CHEM PANEL Magnesium Lvl 1.5 1.8 - 2.4 01/01/2017 [facility] ELECTROLYTES AGAP 21.3 10.0 - 20.0 01/01/2017 [facility] ELECTROLYTES eGFR 42 01/01/2017 Result Comment: The eGFR is calculated using the CKD-EPI formula. In most young, healthy individuals the eGFR will be >90 mL/min/1.73m2. The eGFR declines with age. An eGFR of 60-89 may be normal in some populations, particularly the elderly, for whom the CKD-EPI formula has not been extensively validated. Use of the eGFR is not recommended in the following populations:

Individuals with unstable creatinine concentrations, including patients and those with serious co-morbid conditions.

Patients with extremes in muscle mass or diet.

The data above are obtained from the National Kidney Disease Education Program (NKDEP) which additionally recommends that when the eGFR is used in patients with extremes of body mass index for purposes of drug dosing, the eGFR should be multiplied by the estimated BMI. [facility] ELECTROLYTES CO2 16 24 - 32 01/01/2017 [facility] ELECTROLYTES Calcium Lvl 9.3 8.5 - 10.5 01/01/2017 [facility] ELECTROLYTES Sodium Lvl 137 135 - 145 01/01/2017 [facility] ELECTROLYTES Potassium Lvl 4.3 3.5 - 5.1 01/01/2017 [facility] ELECTROLYTES Chloride Lvl 104 95 - 109 01/01/2017 [facility] ELECTROLYTES Creatinine Lvl 2.0 5 0.50 - 1.40 01/01/2017 [facility] ELECTROLYTES Glucose Lvl 105 70 - 99 01/01/2017 [facility] ELECTROLYTES BUN 44 7 - 22 01/01/2017 [facility] HEMATOLOGY Basophils # 0.1 0.0 - 0.2 01/01/2017 [facility] HEMATOLOGY Monocytes # 1.5 0.0 - 0.8 01/01/2017 [facility] HEMATOLOGY Basophils 0.6 0.0 - 1.0 01/01/2017 [facility] HEMATOLOGY Eosinophils 0.3 0.0 - 4.0 01/01/2017 [facility] HEMATOLOGY Monocytes 9.8 2.0 - 12.0 01/01/2017 [facility] HEMATOLOGY Lymphocytes # 1.9 1.0 - 5.5 01/01/2017 [facility] HEMATOLOGY Segs-Bands # 11.6 1.5 - 8.1 01/01/2017 [facility] HEMATOLOGY Segs 76.6 45.0 - 75.0 01/01/2017 [facility] HEMATOLOGY Lymphocytes 12.7 20.0 - 40.0 01/01/2017 [facility] HEMATOLOGY MCH 28.0 27.0 - 31.0 01/01/2017 [facility] HEMATOLOGY RBC 3.97 4.70 - 6.10 01/01/2017 [facility] HEMATOLOGY WBC 15.2 3.7 - 10.4 01/01/2017 [facility] HEMATOLOGY MCHC 32.7 32.0 - 36.0 01/01/2017 [facility] HEMATOLOGY MCV 85.5 80.0 - 94.0 01/01/2017 [facility] HEMATOLOGY Hct 34.0 42.0 - 54.0 01/01/2017 [facility] HEMATOLOGY Hgb 11.1 14.0 - 18.0 01/01/2017 [facility] HEMATOLOGY Platelet 484 133 - 450 01/01/2017 [facility] HEMATOLOGY MPV 8.0 7.4 - 10.4 01/01/2017 [facility] HEMATOLOGY RDW 19.2 11.5 - 14.5 01/01/2017 [facility] ELECTROLYTES AGAP 17.2 10.0 - 20.0 12/25/2016 [facility] ELECTROLYTES eGFR 26 12/25/2016 Result Comment: The eGFR is calculated using the CKD-EPI formula. In most young, healthy individuals the eGFR will be >90 mL/min/1.73m2. The eGFR declines with age. An eGFR of 60-89 may be normal in some populations, particularly the elderly, for whom the CKD-EPI formula has not been extensively validated. Use of the eGFR is not recommended in the following populations:

Individuals with unstable creatinine concentrations, including patients and those with serious co-morbid conditions.

Patients with extremes in muscle mass or diet.

The data above are obtained from the National Kidney Disease Education Program (NKDEP) which additionally recommends that when the eGFR is used in patients with extremes of body mass index for purposes of drug dosing, the eGFR should be multiplied by the estimated BMI. [facility] ELECTROLYTES Calcium Lvl 9.1 8.5 - 10.5 12/25/2016 [facility] ELECTROLYTES CO2 19 24 - 32 12/25/2016 [facility] ELECTROLYTES Potassium Lvl 5.2 3.5 - 5.1 12/25/2016 [facility] ELECTROLYTES Chloride Lvl 109 95 - 109 12/25/2016 [facility] ELECTROLYTES BUN 61 7 - 22 12/25/2016 [facility] ELECTROLYTES Creatinine Lvl 3.0 0 0.50 - 1.40 12/25/2016 [facility] ELECTROLYTES Sodium Lvl 140 135 - 145 12/25/2016 [facility] ELECTROLYTES Glucose Lvl 99 70 - 99 12/25/2016 [facility] HEMATOLOGY MPV 8.6 7.4 - 10.4 12/25/2016 [facility] Platelet 340 133 - 450 12/25/2016 [facility] RDW 19.4 11.5 - 14.5 12/25/2016 [facility] MCHC 33.2 32.0 - 36.0 12/25/2016 [facility] HEMATOLOGY MCH 28.2 27.0 - 31.0 12/25/2016 [facility] HEMATOLOGY MCV 85.0 80.0 - 94.0 12/25/2016 [facility] HEMATOLOGY Hct 24.9 42.0 - 54.0 12/25/2016 [facility] HEMATOLOGY Hgb 8.3 14.0 - 18.0 12/25/2016 [facility] HEMATOLOGY RBC 2.93 4.70 - 6.10 12/25/2016 [facility] HEMATOLOGY WBC 8.2 3.7 - 10.4 12/25/2016 [facility] HEMATOLOGY Basophils # 0.1 0.0 - 0.2 12/25/2016 [facility] HEMATOLOGY Eosinophils # 0.6 0.0 - 0.5 12/25/2016 [facility] HEMATOLOGY Monocytes # 0.7 0.0 - 0.8 12/25/2016 [facility] HEMATOLOGY Segs 45.4 45.0 - 75.0 12/25/2016 [facility] HEMATOLOGY Lymphocytes 37.2 20.0 - 40.0 12/25/2016 [facility] HEMATOLOGY Lymphocytes # 3.0 1.0 - 5.5 12/25/2016 [facility] HEMATOLOGY Basophils 1.3 0.0 - 1.0 12/25/2016 [facility] HEMATOLOGY Segs-Bands # 3.7 1.5 - 8.1 12/25/2016 [facility] HEMATOLOGY Eosinophils 7.7 0.0 - 4.0 12/25/2016 [facility] Monocytes 8.4 2.0 - 12.0 12/25/2016 [facility] CHEM PANEL Magnesium Lvl 1.6 1.8 - 2.4 12/24/2016 [facility] CHEM PANEL Creatinine Lvl 3.10 0.50 - 1.40 12/24/2016 [facility] CHEM PANEL Sodium Lvl 139 135 - 145 12/24/2016 [facility] CHEM PANEL Potassium Lvl 5.2 3.5 - 5.1 12/24/2016 [facility] CHEM PANEL Chloride Lvl 108 95 - 109 12/24/2016 [facility] CHEM PANEL CO2 18 24 - 32 12/24/2016 [facility] CHEM PANEL Calcium Lvl 9.0 8.5 - 10.5 12/24/2016 [facility] CHEM PANEL Glucose Lvl 96 70 - 99 12/24/2016 [facility] CHEM PANEL BUN 64 7 - 22 12/24/2016 [facility] CHEM PANEL eGFR 25 12/24/2016 Result Comment: The eGFR is calculated using the CKD-EPI formula. In most young, healthy individuals the eGFR will be >90 mL/min/1.73m2. The eGFR declines with age. An eGFR of 60-89 may be normal in some populations, particularly the elderly, for whom the CKD-EPI formula has not been extensively validated. Use of the eGFR is not recommended in the following populations:

Individuals with unstable creatinine concentrations, including patients and those with serious co-morbid conditions.

Patients with extremes in muscle mass or diet.

The data above are obtained from the National Kidney Disease Education Program (NKDEP) which additionally recommends that when the eGFR is used in patients with extremes of body mass index for purposes of drug dosing, the eGFR should be multiplied by the estimated BMI. [facility] CHEM PANEL AGAP 18.2 10.0 - 20.0 12/24/2016 [facility] HEMATOLOGY Eosinophils # 0.6 0.0 - 0.5 12/24/2016 [facility] HEMATOLOGY Monocytes # 0.7 0.0 - 0.8 12/24/2016 [facility] Lymphocytes # 3.0 1.0 - 5.5 12/24/2016 [facility] HEMATOLOGY Segs-Bands # 4.6 1.5 - 8.1 12/24/2016 [facility] HEMATOLOGY Basophils 1.2 0.0 - 1.0 12/24/2016 [facility] HEMATOLOGY Segs 50.8 45.0 - 75.0 12/24/2016 [facility] HEMATOLOGY Basophils # 0.1 0.0 - 0.2 12/24/2016 [facility] HEMATOLOGY Lymphocytes 33.3 20.0 - 40.0 12/24/2016 [facility] HEMATOLOGY Eosinophils 6.7 0.0 - 4.0 12/24/2016 [facility] HEMATOLOGY Monocytes 8.0 2.0 - 12.0 12/24/2016 [facility] HEMATOLOGY RDW 18.8 11.5 - 14.5 12/24/2016 [facility] MCHC 33.4 32.0 - 36.0 12/24/2016 [facility] MPV 8.5 7.4 - 10.4 12/24/2016 [facility] Platelet 288 133 - 450 12/24/2016 [facility] Hgb 8.0 14.0 - 18.0 12/24/2016 [facility] RBC 2.84 4.70 - 6.10 12/24/2016 [facility] HEMATOLOGY WBC 9.1 3.7 - 10.4 12/24/2016 [facility] HEMATOLOGY MCH 28.1 27.0 - 31.0 12/24/2016 [facility] HEMATOLOGY MCV 84.2 80.0 - 94.0 12/24/2016 [facility] HEMATOLOGY Hct 23.9 42.0 - 54.0 12/24/2016 [facility] CHEM PANEL eGFR 25 12/23/2016 Result Comment: The eGFR is calculated using the CKD-EPI formula. In most young, healthy individuals the eGFR will be >90 mL/min/1.73m2. The eGFR declines with age. An eGFR of 60-89 may be normal in some populations, particularly the elderly, for whom the CKD-EPI formula has not been extensively validated. Use of the eGFR is not recommended in the following populations:

Individuals with unstable creatinine concentrations, including patients and those with serious co-morbid conditions.

Patients with extremes in muscle mass or diet.

The data above are obtained from the National Kidney Disease Education Program (NKDEP) which additionally recommends that when the eGFR is used in patients with extremes of body mass index for purposes of drug dosing, the eGFR should be multiplied by the estimated BMI. [facility] CHEM PANEL Potassium Lvl 5.3 3.5 - 5.1 12/23/2016 [facility] CHEM PANEL Chloride Lvl 108 95 - 109 12/23/2016 [facility] CHEM PANEL Calcium Lvl 9.3 8.5 - 10.5 12/23/2016 [facility] CHEM PANEL CO2 19 24 - 32 12/23/2016 [facility] CHEM PANEL BUN 65 7 - 22 12/23/2016 [facility] CHEM PANEL Glucose Lvl 92 70 - 99 12/23/2016 [facility] CHEM PANEL Sodium Lvl 137 135 - 145 12/23/2016 [facility] CHEM PANEL Creatinine Lvl 3.10 0.50 - 1.40 12/23/2016 [facility] CHEM PANEL AGAP 15.3 10.0 - 20.0 12/23/2016 [facility] HEMATOLOGY Lymphocytes 28.7 20.0 - 40.0 12/23/2016 [facility] HEMATOLOGY Segs 54.9 45.0 - 75.0 12/23/2016 [facility] HEMATOLOGY Basophils # 0.1 0.0 - 0.2 12/23/2016 [facility] HEMATOLOGY Eosinophils # 0.7 0.0 - 0.5 12/23/2016 [facility] HEMATOLOGY Monocytes # 0.8 0.0 - 0.8 12/23/2016 [facility] HEMATOLOGY Lymphocytes # 2.8 1.0 - 5.5 12/23/2016 [facility] HEMATOLOGY Segs-Bands # 5.4 1.5 - 8.1 12/23/2016 [facility] HEMATOLOGY Basophils 1.1 0.0 - 1.0 12/23/2016 [facility] HEMATOLOGY Eosinophils 6.9 0.0 - 4.0 12/23/2016 [facility] HEMATOLOGY Monocytes 8.4 2.0 - 12.0 12/23/2016 [facility] HEMATOLOGY MPV 8.4 7.4 - 10.4 12/23/2016 [facility] HEMATOLOGY Platelet 302 133 - 450 12/23/2016 [facility] HEMATOLOGY RDW 18.9 11.5 - 14.5 12/23/2016 [facility] HEMATOLOGY MCHC 33.8 32.0 - 36.0 12/23/2016 [facility] MCH 28.1 27.0 - 31.0 12/23/2016 [facility] HEMATOLOGY MCV 83.3 80.0 - 94.0 12/23/2016 [facility] HEMATOLOGY Hct 24.1 42.0 - 54.0 12/23/2016 [facility] HEMATOLOGY Hgb 8.1 14.0 - 18.0 12/23/2016 [facility] HEMATOLOGY RBC 2.89 4.70 - 6.10 12/23/2016 [facility] HEMATOLOGY WBC 9.9 3.7 - 10.4 12/23/2016 [facility] TOXICOLOGY Vanco Lvl 10.2 12/23/2016 [facility] URINE CHEM U Creatinine 34.00 12/22/2016 [facility] URINE CHEM U Sodium 51 12/22/2016 [facility] URINE CHEM U Eos 0-2 *ABN* (12/22/16 6:25 PM) None Seen 12/22/2016 [facility] CHEM PANEL Procalcitonin Lvl 0.24 0.00 - 0.10 12/22/2016 [facility] TOXICOLOGY Vanco Lvl 23.1 12/21/2016 [facility] TOXICOLOGY Vanco Tr TND 1200 12/20/2016 [facility] TOXICOLOGY Vanco Tr 31.6 12/20/2016 [facility] CHEM PANEL Magnesium Lvl 1.4 1.8 - 2.4 12/20/2016 [facility] URINE CHEM U Osmolality 257 300 - 800 12/20/2016 [facility] URINE CHEM U Creatinine <13.00 12/20/2016 [facility] URINE CHEM U Sodium 99 12/20/2016 [facility] URINE CHEM U Potassium 7.2 12/20/2016 [facility] CHEM PANEL Osmolality 301 280 - 300 12/19/2016 [facility] CHEM PANEL Phosphorus 5.1 2.5 - 4.5 12/18/2016 [facility] CHEM PANEL Magnesium Lvl 1.3 1.8 - 2.4 12/18/2016 [facility] CHEM PANEL Lactic Acid Lvl 0.7 0.5 - 2.2 12/18/2016 [facility] CHEM PANEL Procalcitonin Lvl 2.12 0.00 - 0.10 12/18/2016 Result Comment: Critical Result(s) jamil d to leeanna yadav at 12/18/2016 01:27 by [email or web address]. Read back OK. [facility] HEMATOLOGY Polychrom Moder ate *ABN* (12/18/16 12:16 AM) None Seen 12/18/2016 [facility] HEMATOLOGY Plt Morph Leeann l (12/18/16 12:16 AM) 12/18/2016 [facility] URINE AND STOOL UA Urobilinogen <=1.0 mg/dL 0.1 - 1.0 12/18/2016 [facility] URINE AND STOOL UA Color Ltyellow 12/18/2016 [facility] URINE AND STOOL UA Bili Negative *NA* (12/18/16 12:16 AM) Negative 12/18/2016 [facility] URINE AND STOOL UA WBC 92 0 - 5 12/18/2016 [facility] URINE AND STOOL UA Nitrite Negative (12/18/16 12:16 AM) Negative 12/18/2016 [facility] URINE AND STOOL UA Blood Small *ABN* (12/18/16 12:16 AM) Negative 12/18/2016 [facility] URINE AND STOOL UA Sq Epi Occasional /LPF Few /LPF 12/18/2016 [facility] URINE AND STOOL UA Leuk Est Large *ABN* (12/18/16 12:16 AM) Negative 12/18/2016 [facility] URINE AND STOOL UA RBC 6 0 - 2 12/18/2016 [facility] URINE AND STOOL UA Turbidity Slight *ABN* (12/18/16 12:16 AM) Clear 12/18/2016 [facility] URINE AND STOOL UA Protein 30 mg/dL Negative mg/dL 12/18/2016 [facility] URINE AND STOOL UA pH 8.0 5.0 - 8.0 12/18/2016 [facility] URINE AND STOOL UA Ketones Negative mg/dL Negative mg/dL 12/18/2016 [facility] URINE AND STOOL UA Glucose Negative mg/dL Negative mg/dL 12/18/2016 [facility] URINE AND STOOL UA Spec Grav 1.010 <=1.030 12/18/2016 [facility] BLOOD BANK RESULTS Antibody Scrn Negative (12/17/16 1:03 PM) 12/17/2016 [facility] BLOOD BANK RESULTS ABO/Rh A POS 12/17/2016 [facility] CARDIAC ENZYMES CK MB 0.5 0.5 - 3.6 12/17/2016 [facility] CARDIAC ENZYMES Troponin-I <0.02 0.00 - 0.40 12/17/2016 [facility] CHEM PANEL Phosphorus 4.6 2.5 - 4.5 12/17/2016 [facility] CHEM PANEL Lactic Acid Lvl 1.2 0.5 - 2.2 12/16/2016 [facility] CHEM PANEL Phosphorus 3.3 2.5 - 4.5 12/16/2016 [facility] TOXICOLOGY Tobra Lvl 10.6 12/14/2016 [facility] TOXICOLOGY Tobra Lvl 10.6 12/12/2016 [facility] IMMUNOLOGY Prealbumin 11.2 18.0 - 45.0 12/11/2016 [facility] CHEM PANEL Bili Total 0.4 0.2 - 1.3 12/09/2016 [facility] CHEM PANEL Alk Phos 136 39 - 136 12/09/2016 [facility] CHEM PANEL AST 15 0 - 37 12/09/2016 [facility] CHEM PANEL ALT 32 0 - 65 12/09/2016 [facility] CHEM PANEL Albumin Lvl 3.0 3.5 - 5.0 12/09/2016 [facility] CHEM PANEL Total Protein 7.8 6.4 - 8.4 12/09/2016 [facility] CHEM PANEL Globulin 4.8 2.7 - 4.2 12/09/2016 [facility] CHEM PANEL A/G Ratio 0.6 0.7 - 1.6 12/09/2016 [facility] CHEM PANEL B/C Ratio 14 6 - 25 12/09/2016 [facility] URINE AND STOOL UA Urobilinogen <=1.0 mg/dL 0.1 - 1.0 12/09/2016 [facility] URINE AND STOOL UA Sq Epi None Seen 12/09/2016 [facility] URINE AND STOOL UA Spec Grav 1.011 <=1.030 12/09/2016 [facility] URINE AND STOOL UA Ketones Negative mg/dL Negative mg/dL 12/09/2016 [facility] URINE AND STOOL UA Bili Negative *NA* (12/08/16 11:06 PM) Negative 12/09/2016 [facility] URINE AND STOOL UA Protein 100 mg/dL Negative mg/dL 12/09/2016 [facility] URINE AND STOOL UA Glucose Negative mg/dL Negative mg/dL 12/09/2016 [facility] URINE AND STOOL UA Blood Moderate *ABN* (12/08/16 11:06 PM) Negative 12/09/2016 [facility] URINE AND STOOL UA Turbidity Marked *ABN* (12/08/16 11:06 PM) Clear 12/09/2016 [facility] URINE AND STOOL UA pH 6.0 5.0 - 8.0 12/09/2016 [facility] URINE AND STOOL UA Bacteria Few /HPF None Seen /HPF 12/09/2016 [facility] URINE AND STOOL UA Amorph Michelle Moderate /HPF None Seen /HPF 12/09/2016 [facility] URINE AND STOOL UA WBC 94 0 - 5 12/09/2016 [facility] URINE AND STOOL UA Nitrite Positive *ABN* (12/08/16 11:06 PM) Negative 12/09/2016 [facility] URINE AND STOOL UA Leuk Est Large *ABN* (12/08/16 11:06 PM) Negative 12/09/2016 [facility] URINE AND STOOL UA RBC 20 0 - 2 12/09/2016 [facility] URINE AND STOOL UA Color Yellow (12/08/16 11:06 PM) Yellow 12/09/2016 [facility] VIRAL - SEROLOGY Influ A Negative (12/08/16 11:06 PM) Negative 12/09/2016 [facility] VIRAL - SEROLOGY Influ B Negative (12/08/16 11:06 PM) Negative 12/09/2016 [facility] CARDIAC ENZYMES CK MB Index 0.6 0.0 - 2.5 12/09/2016 [facility] CARDIAC ENZYMES Troponin-I <0.02 0.00 - 0.40 12/09/2016 [facility] CARDIAC ENZYMES Total CK 94 12 - 191 12/09/2016 [facility] CARDIAC ENZYMES CK MB 0.6 0.5 - 3.6 12/09/2016 [facility] CHEM PANEL Procalcitonin Lvl 0.18 0.00 - 0.10 12/09/2016 [facility] CHEM PANEL Lactic Acid Lvl 1.1 0.5 - 2.2 12/09/2016 [facility] CHEM PANEL Albumin Lvl 3.4 3.5 - 5.0 12/09/2016 [facility] CHEM PANEL Total Protein 9.4 6.4 - 8.4 12/09/2016 [facility] CHEM PANEL B/C Ratio 13 6 - 25 12/09/2016 [facility] CHEM PANEL A/G Ratio 0.6 0.7 - 1.6 12/09/2016 [facility] CHEM PANEL Globulin 6.0 2.7 - 4.2 12/09/2016 [facility] CHEM PANEL ALT 41 0 - 65 12/09/2016 [facility] CHEM PANEL Alk Phos 152 39 - 136 12/09/2016 [facility] CHEM PANEL AST 14 0 - 37 12/09/2016 [facility] CHEM PANEL Bili Total 0.4 0.2 - 1.3 12/09/2016 [facility] HEMATOLOGY PTT 32.3 22.9 - 35.8 12/09/2016 [facility] HEMATOLOGY PT 15.1 12.0 - 14.7 12/09/2016 [facility] HEMATOLOGY INR 1.17 0.85 - 1.17 12/09/2016 [facility] ANEMIA STUDY Ferritin Lvl 442 22 - 275 11/28/2016 [facility] CHEM PANEL A/G Ratio 0.5 0.7 - 1.6 11/28/2016 [facility] CHEM PANEL AGAP 14.8 10.0 - 20.0 11/28/2016 [facility] CHEM PANEL B/C Ratio 23 6 - 25 11/28/2016 [facility] CHEM PANEL Globulin 5.6 2.7 - 4.2 11/28/2016 [facility] CHEM PANEL eGFR 54 11/28/2016 Result Comment: The eGFR is calculated using the CKD-EPI formula. In most young, healthy individuals the eGFR will be >90 mL/min/1.73m2. The eGFR declines with age. An eGFR of 60-89 may be normal in some populations, particularly the elderly, for whom the CKD-EPI formula has not been extensively validated. Use of the eGFR is not recommended in the following populations:

Individuals with unstable creatinine concentrations, including patients and those with serious co-morbid conditions.

Patients with extremes in muscle mass or diet.

The data above are obtained from the National Kidney Disease Education Program (NKDEP) which additionally recommends that when the eGFR is used in patients with extremes of body mass index for purposes of drug dosing, the eGFR should be multiplied by the estimated BMI. [facility] CHEM PANEL ALT 96 0 - 65 11/28/2016 [facility] CHEM PANEL AST 86 0 - 37 11/28/2016 [facility] CHEM PANEL Albumin Lvl 2.9 3.5 - 5.0 11/28/2016 [facility] CHEM PANEL Alk Phos 142 39 - 136 11/28/2016 [facility] CHEM PANEL Bili Total 0.4 0.2 - 1.3 11/28/2016 [facility] CHEM PANEL Total Protein 8.5 6.4 - 8.4 11/28/2016 [facility] CHEM PANEL Calcium Lvl 9.3 8.5 - 10.5 11/28/2016 [facility] CHEM PANEL CO2 19 24 - 32 11/28/2016 [facility] CHEM PANEL Chloride Lvl 109 95 - 109 11/28/2016 [facility] CHEM PANEL Potassium Lvl 4.8 3.5 - 5.1 11/28/2016 [facility] CHEM PANEL Sodium Lvl 138 135 - 145 11/28/2016 [facility] CHEM PANEL Creatinine Lvl 1.67 0.50 - 1.40 11/28/2016 [facility] CHEM PANEL BUN 39 7 - 22 11/28/2016 [facility] CHEM PANEL Glucose Lvl 92 70 - 99 11/28/2016 [facility] CHEM PANEL Magnesium Lvl 1.5 1.8 - 2.4 11/28/2016 [facility] CHEM PANEL Phosphorus 4.0 2.5 - 4.5 11/28/2016 [facility] HEMATOLOGY RDW 22.2 11.5 - 14.5 11/28/2016 [facility] HEMATOLOGY MPV 9.2 7.4 - 10.4 11/28/2016 [facility] HEMATOLOGY Platelet 252 133 - 450 11/28/2016 [facility] HEMATOLOGY WBC 7.5 3.7 - 10.4 11/28/2016 [facility] HEMATOLOGY MCHC 32.6 32.0 - 36.0 11/28/2016 [facility] HEMATOLOGY MCH 27.1 27.0 - 31.0 11/28/2016 [facility] HEMATOLOGY RBC 3.78 4.70 - 6.10 11/28/2016 [facility] HEMATOLOGY Hgb 10.2 14.0 - 18.0 11/28/2016 [facility] HEMATOLOGY MCV 83.2 80.0 - 94.0 11/28/2016 [facility] HEMATOLOGY Hct 31.4 42.0 - 54.0 11/28/2016 [facility] HEMATOLOGY Eosinophils 5.4 0.0 - 4.0 11/28/2016 [facility] HEMATOLOGY Segs 52.4 45.0 - 75.0 11/28/2016 [facility] HEMATOLOGY Monocytes 12.0 2.0 - 12.0 11/28/2016 [facility] HEMATOLOGY Lymphocytes 29.6 20.0 - 40.0 11/28/2016 [facility] HEMATOLOGY Basophils 0.6 0.0 - 1.0 11/28/2016 [facility] HEMATOLOGY Lymphocytes # 2.2 1.0 - 5.5 11/28/2016 [facility] HEMATOLOGY Segs-Bands # 3.9 1.5 - 8.1 11/28/2016 [facility] HEMATOLOGY Eosinophils # 0.4 0.0 - 0.5 11/28/2016 [facility] HEMATOLOGY Monocytes # 0.9 0.0 - 0.8 11/28/2016 [facility] HEMATOLOGY Anisocyte 1+ *ABN* (11/28/16 2:53 AM) None Seen 11/28/2016 [facility] CARDIAC ENZYMES Total CK 41 12 - 191 11/27/2016 [facility] URINE CHEM U Eos None Seen (11/27/16 3:22 PM) None Seen 11/27/2016 [facility] URINE CHEM U Osmolality 419 300 - 800 11/27/2016 [facility] URINE CHEM U Prot/Creat 3.5 11/27/2016 [facility] URINE CHEM U Protein 122.2 11/27/2016 [facility] URINE CHEM U Creatinine 35.10 11/27/2016 [facility] URINE CHEM U Potassium 32.7 11/27/2016 [facility] URINE CHEM U Chloride 115 11/27/2016 [facility] URINE CHEM U Sodium 106 11/27/2016 [facility] CHEM PANEL BUN 38 7 - 22 11/27/2016 [facility] CHEM PANEL Glucose Lvl 82 70 - 99 11/27/2016 [facility] CHEM PANEL eGFR 51 11/27/2016 Result Comment: The eGFR is calculated using the CKD-EPI formula. In most young, healthy individuals the eGFR will be >90 mL/min/1.73m2. The eGFR declines with age. An eGFR of 60-89 may be normal in some populations, particularly the elderly, for whom the CKD-EPI formula has not been extensively validated. Use of the eGFR is not recommended in the following populations:

Individuals with unstable creatinine concentrations, including patients and those with serious co-morbid conditions.

Patients with extremes in muscle mass or diet.

The data above are obtained from the National Kidney Disease Education Program (NKDEP) which additionally recommends that when the eGFR is used in patients with extremes of body mass index for purposes of drug dosing, the eGFR should be multiplied by the estimated BMI. [facility] CHEM PANEL Sodium Lvl 138 135 - 145 11/27/2016 [facility] CHEM PANEL Calcium Lvl 9.6 8.5 - 10.5 11/27/2016 [facility] CHEM PANEL CO2 19 24 - 32 11/27/2016 [facility] CHEM PANEL Chloride Lvl 108 95 - 109 11/27/2016 [facility] CHEM PANEL Potassium Lvl 5.4 3.5 - 5.1 11/27/2016 [facility] CHEM PANEL Creatinine Lvl 1.74 0.50 - 1.40 11/27/2016 [facility] CHEM PANEL AGAP 16.4 10.0 - 20.0 11/27/2016 [facility] HEMATOLOGY MPV 9.2 7.4 - 10.4 11/27/2016 [facility] HEMATOLOGY RBC 3.81 4.70 - 6.10 11/27/2016 [facility] HEMATOLOGY Hct 31.9 42.0 - 54.0 11/27/2016 [facility] HEMATOLOGY Hgb 10.2 14.0 - 18.0 11/27/2016 [facility] HEMATOLOGY MCH 26.8 27.0 - 31.0 11/27/2016 [facility] HEMATOLOGY MCV 83.8 80.0 - 94.0 11/27/2016 [facility] HEMATOLOGY Platelet 235 133 - 450 11/27/2016 [facility] HEMATOLOGY RDW 22.4 11.5 - 14.5 11/27/2016 [facility] HEMATOLOGY MCHC 31.9 32.0 - 36.0 11/27/2016 [facility] HEMATOLOGY WBC 7.8 3.7 - 10.4 11/27/2016 [facility] HEMATOLOGY Anisocyte 1+ *ABN* (11/27/16 2:49 AM) None Seen 11/27/2016 [facility] HEMATOLOGY Monocytes # 0.8 0.0 - 0.8 11/27/2016 [facility] HEMATOLOGY Eosinophils # 0.6 0.0 - 0.5 11/27/2016 [facility] HEMATOLOGY Basophils # 0.1 0.0 - 0.2 11/27/2016 [facility] HEMATOLOGY Lymphocytes 27.3 20.0 - 40.0 11/27/2016 [facility] HEMATOLOGY Eosinophils 7.1 0.0 - 4.0 11/27/2016 [facility] HEMATOLOGY Monocytes 10.4 2.0 - 12.0 11/27/2016 [facility] HEMATOLOGY Basophils 0.9 0.0 - 1.0 11/27/2016 [facility] HEMATOLOGY Lymphocytes # 2.1 1.0 - 5.5 11/27/2016 [facility] HEMATOLOGY Segs-Bands # 4.2 1.5 - 8.1 11/27/2016 [facility] HEMATOLOGY Segs 54.3 45.0 - 75.0 11/27/2016 [facility] IMMUNOLOGY Hep B Core IgM Negat pavel *NA* (11/27/16 2:49 AM) Negative 11/27/2016 [facility] IMMUNOLOGY Hep Bs Ag Negat pavel *NA* (11/27/16 2:49 AM) Negative 11/27/2016 [facility] IMMUNOLOGY Hep C Ab Posit pavel *ABN* (11/27/16 2:49 AM) 11/27/2016 [facility] IMMUNOLOGY Hep A IgM Negat pavel *NA* (11/27/16 2:49 AM) Negative 11/27/2016 [facility] CHEM PANEL eGFR 61 11/26/2016 Result Comment: The eGFR is calculated using the CKD-EPI formula. In most young, healthy individuals the eGFR will be >90 mL/min/1.73m2. The eGFR declines with age. An eGFR of 60-89 may be normal in some populations, particularly the elderly, for whom the CKD-EPI formula has not been extensively validated. Use of the eGFR is not recommended in the following populations:

Individuals with unstable creatinine concentrations, including patients and those with serious co-morbid conditions.

Patients with extremes in muscle mass or diet.

The data above are obtained from the National Kidney Disease Education Program (NKDEP) which additionally recommends that when the eGFR is used in patients with extremes of body mass index for purposes of drug dosing, the eGFR should be multiplied by the estimated BMI. [facility] CHEM PANEL Potassium Lvl 5.1 3.5 - 5.1 11/26/2016 [facility] CHEM PANEL Sodium Lvl 142 135 - 145 11/26/2016 [facility] CHEM PANEL Chloride Lvl 109 95 - 109 11/26/2016 [facility] CHEM PANEL AGAP 15.1 10.0 - 20.0 11/26/2016 [facility] CHEM PANEL Calcium Lvl 9.0 8.5 - 10.5 11/26/2016 [facility] CHEM PANEL CO2 23 24 - 32 11/26/2016 [facility] CHEM PANEL Glucose Lvl 94 70 - 99 11/26/2016 [facility] CHEM PANEL BUN 35 7 - 22 11/26/2016 [facility] CHEM PANEL Creatinine Lvl 1.50 0.50 - 1.40 11/26/2016 [facility] HEMATOLOGY Eosinophils 4.7 0.0 - 4.0 11/24/2016 [facility] HEMATOLOGY Lymphocytes # 2.4 1.0 - 5.5 11/24/2016 [facility] HEMATOLOGY Basophils 0.8 0.0 - 1.0 11/24/2016 [facility] HEMATOLOGY Monocytes 9.6 2.0 - 12.0 11/24/2016 [facility] HEMATOLOGY Segs-Bands # 4.5 1.5 - 8.1 11/24/2016 [facility] HEMATOLOGY Eosinophils # 0.4 0.0 - 0.5 11/24/2016 [facility] HEMATOLOGY Monocytes # 0.8 0.0 - 0.8 11/24/2016 [facility] HEMATOLOGY Basophils # 0.1 0.0 - 0.2 11/24/2016 [facility] HEMATOLOGY Anisocyte 1+ *ABN* (11/24/16 3:30 AM) None Seen 11/24/2016 [facility] HEMATOLOGY Lymphocytes 29.6 20.0 - 40.0 11/24/2016 [facility] HEMATOLOGY Segs 55.3 45.0 - 75.0 11/24/2016 [facility] HEMATOLOGY RBC 3.32 4.70 - 6.10 11/24/2016 [facility] HEMATOLOGY WBC 8.1 3.7 - 10.4 11/24/2016 [facility] HEMATOLOGY Hgb 8.9 14.0 - 18.0 11/24/2016 [facility] HEMATOLOGY MCH 26.9 27.0 - 31.0 11/24/2016 [facility] HEMATOLOGY Hct 27.9 42.0 - 54.0 11/24/2016 [facility] HEMATOLOGY MCHC 32.0 32.0 - 36.0 11/24/2016 [facility] HEMATOLOGY MCV 84.1 80.0 - 94.0 11/24/2016 [facility] HEMATOLOGY RDW 22.6 11.5 - 14.5 11/24/2016 [facility] HEMATOLOGY Platelet 215 133 - 450 11/24/2016 [facility] HEMATOLOGY MPV 9.1 7.4 - 10.4 11/24/2016 [facility] HEMATOLOGY Basophils # 0.1 0.0 - 0.2 11/23/2016 [facility] URINE AND STOOL UA Leuk Est Large *ABN* (11/21/16 8:50 AM) Negative 11/21/2016 [facility] URINE AND STOOL UA Nitrite Negative (11/21/16 8:50 AM) Negative 11/21/2016 [facility] URINE AND STOOL UA Hyph Yeast Occasional *ABN* (11/21/16 8:50 AM) None Seen 11/21/2016 [facility] URINE AND STOOL UA Clay Yeast Occasional /HPF None Seen /HPF 11/21/[address] [facility] [place] [place] URINE AND STOOL UA WBC >182 0 - 5 11/21/2016 [facility] URINE AND STOOL UA Mucus Few /LPF None Seen /LPF 11/21/2016 [facility] URINE AND STOOL UA RBC 153 0 - 2 11/21/2016 [facility] URINE AND STOOL UA Blood Moderate *ABN* (11/21/16 8:50 AM) Negative 11/21/2016 [facility] URINE AND STOOL UA Bili Negative *NA* (11/21/16 8:50 AM) Negative 11/21/2016 [facility] URINE AND STOOL UA Sq Epi None Seen 11/21/2016 [facility] URINE AND STOOL UA Urobilinogen <=1.0 mg/dL 0.1 - 1.0 11/21/2016 [facility] URINE AND STOOL UA Color Yellow *NA* (11/21/16 8:50 AM) Yellow 11/21/2016 [facility] URINE AND STOOL UA Ketones Negative mg/dL Negative mg/dL 11/21/[address] [facility] [place] [place] URINE AND STOOL UA pH 5.5 5.0 - 8.0 11/21/2016 [facility] URINE AND STOOL UA Glucose Negative mg/dL Negative mg/dL 11/21/[address] [facility] [place] [place] URINE AND STOOL UA Protein 70 mg/dL Negative mg/dL 11/21/2016 [facility] URINE AND STOOL UA Turbidity Slight *ABN* (11/21/16 8:50 AM) Clear 11/21/2016 [facility] URINE AND STOOL UA Spec Grav 1.012 <=1.030 11/21/2016 [facility] URINE CHEM U Osmolality 442 300 - 800 11/21/2016 [facility] URINE CHEM U Creatinine 42.90 11/21/2016 [facility] URINE CHEM U Sodium 110 11/21/2016 [facility] URINE CHEM U Prot/Creat 2.3 11/21/2016 [facility] URINE CHEM U Protein 97.5 11/21/2016 [facility] URINE CHEM U Creatinine 42.70 11/21/2016 [facility] CHEM PANEL Phosphorus 3.6 2.5 - 4.5 11/19/2016 [facility] CHEM PANEL Magnesium Lvl 1.8 1.8 - 2.4 11/19/2016 [facility] CHEM PANEL Magnesium Lvl 1.5 1.8 - 2.4 11/18/2016 [facility] CHEM PANEL Phosphorus 2.6 2.5 - 4.5 11/18/2016 [facility] HEMATOLOGY Sed Rate 99 0 - 15 11/14/2016 [facility] IMMUNOLOGY Prealbumin 37.3 18.0 - 45.0 11/14/2016 [facility] CARDIAC ENZYMES Total CK 25 12 - 191 11/13/2016 [facility] CHEM PANEL Bili Total 0.2 0.2 - 1.3 11/13/2016 [facility] CHEM PANEL Bili Indirect 0.1 0.0 - 1.0 11/13/2016 [facility] CHEM PANEL Bili Direct 0.1 0.0 - 0.3 11/13/2016 [facility] CHEM PANEL Albumin Lvl 2.3 3.5 - 5.0 11/13/2016 [facility] CHEM PANEL Total Protein 7.9 6.4 - 8.4 11/13/2016 [facility] CHEM PANEL Globulin 5.6 2.7 - 4.2 11/13/2016 [facility] CHEM PANEL A/G Ratio 0.4 0.7 - 1.6 11/13/2016 [facility] CHEM PANEL ALT 13 0 - 65 11/13/2016 [facility] CHEM PANEL AST 11 0 - 37 11/13/2016 [facility] CHEM PANEL Alk Phos 109 39 - 136 11/13/2016 [facility] TOXICOLOGY Vanco Lvl 6.4 11/13/2016 [facility] MOLECULAR DIAGNOSTIC C difficile DNA Positive 1 *ABN* (11/12/16 6:06 AM) Negative 11/12/2016 Result Comment: "Significant Findings called to Gracie RICHARDSON on 11/12/2016 at 12:59 by ERIC.Read Back OK." [facility] HEMATOLOGY Microcyte 1+ *ABN* (11/12/16 4:34 AM) None Seen 11/12/2016 [facility] TOXICOLOGY Vanco Lvl 13.0 11/10/2016 [facility] HEMATOLOGY Microcyte 1+ *ABN* (11/09/16 11:30 AM) None Seen 11/09/2016 [facility] BLOOD BANK RESULTS ABO/Rh A POS 11/09/2016 [facility] BLOOD BANK RESULTS Antibody Scrn Negative (11/09/16 11:00 AM) 11/09/2016 [facility] BLOOD BANK RESULTS RBC product Product available (11/09/16 10:39 AM) 11/09/2016 [facility] TOXICOLOGY Vanco Tr 33.6 11/09/2016 [facility] TOXICOLOGY Vanco Tr TND 0330 11/09/2016 [facility] HEMATOLOGY Retic Auto 1.6 0.5 - 1.5 11/09/2016 [facility] HEMATOLOGY Microcyte 1+ *ABN* (11/09/16 4:27 AM) None Seen 11/09/2016 [facility] ANEMIA STUDY TIBC 163 228 - 428 11/08/2016 [facility] ANEMIA STUDY Iron 12 45 - 160 11/08/2016 [facility] ANEMIA STUDY % Satur Fe 7 12 - 57 11/08/2016 [facility] ANEMIA STUDY UIBC 151 110 - 370 11/08/2016 [facility] ANEMIA STUDY Ferritin Lvl 295 22 - 275 11/08/2016 [facility] HEMATOLOGY Retic Auto 1.9 0.5 - 1.5 11/08/2016 [facility] CHEM PANEL Lactic Acid Lvl 0.7 0.5 - 2.2 11/07/2016 [facility] CHEM PANEL Lactic Acid Lvl 0.4 0.5 - 2.2 11/07/2016 [facility] URINE AND STOOL UA Turbidity Cloudy *ABN* (11/07/16 3:53 PM) Clear 11/07/2016 [facility] URINE AND STOOL UA Color Yellow *NA* (11/07/16 3:53 PM) Yellow 11/07/2016 [facility] URINE AND STOOL UA Protein 100 mg/dL Negative mg/dL 11/07/2016 [facility] URINE AND STOOL UA pH 6.5 5.0 - 8.0 11/07/2016 [facility] URINE AND STOOL UA Spec Grav 1.020 <=1.030 11/07/2016 [facility] URINE AND STOOL UA Urobilinogen 0.2 0.1 - 1.0 11/07/2016 [facility] [facility] URINE AND STOOL UA Nitrite Negative (11/07/16 3:53 PM) Negative 11/07/2016 [facility] URINE AND STOOL UA Bili Negative *NA* (11/07/16 3:53 PM) Negative 11/07/2016 [facility] URINE AND STOOL UA Blood Large *ABN* (11/07/16 3:53 PM) Negative 11/07/2016 [facility] URINE AND STOOL UA Sq Epi None Seen (11/07/16 3:53 PM) Few 11/07/2016 [facility] URINE AND STOOL UA WBC >100 /HPF None Seen /HPF 11/07/2016 [facility] URINE AND STOOL UA RBC 6-10 /HPF 0 - 2 11/07/2016 [facility] URINE AND STOOL UA Leuk Est Large *ABN* (11/07/16 3:53 PM) Negative 11/07/2016 [facility] URINE AND STOOL UA Mucus None Seen (11/07/16 3:53 PM) None Seen 11/07/2016 [facility] URINE AND STOOL UA Bacteria Moderate /HPF None Seen /HPF 11/07/[address] [facility] [place] [place] URINE AND STOOL UA Ketones Negative *NA* (11/07/16 3:53 PM) Negative 11/07/2016 [facility] URINE AND STOOL UA Glucose Negative (11/07/16 3:53 PM) Negative 11/07/2016 [facility] CHEM PANEL Lactic Acid WB 3.1 0.5 - 2.2 11/07/2016 [facility] CARDIAC ENZYMES CK MB Index 0.7 0.0 - 2.5 11/07/2016 [facility] CARDIAC ENZYMES Troponin-I <0.02 0.00 - 0.40 11/07/2016 [facility] CARDIAC ENZYMES CK MB 0.5 0.5 - 3.6 11/07/2016 [facility] CARDIAC ENZYMES Total CK 72 12 - 191 11/07/2016 [facility] CHEM PANEL Procalcitonin Lvl 0.47 0.00 - 0.10 11/07/2016 [facility] CHEM PANEL Bili Total 0.2 0.2 - 1.3 11/07/2016 [facility] CHEM PANEL Alk Phos 134 39 - 136 11/07/2016 [facility] CHEM PANEL ALT 10 0 - 65 11/07/2016 [facility] CHEM PANEL AST 13 0 - 37 11/07/2016 [facility] CHEM PANEL Total Protein 10.5 6.4 - 8.4 11/07/2016 [facility] CHEM PANEL Albumin Lvl 2.9 3.5 - 5.0 11/07/2016 [facility] CHEM PANEL B/C Ratio 10 6 - 25 11/07/2016 [facility] CHEM PANEL A/G Ratio 0.4 0.7 - 1.6 11/07/2016 [facility] CHEM PANEL Globulin 7.6 2.7 - 4.2 11/07/2016 [facility] HEMATOLOGY PTT 36.4 22.9 - 35.8 11/07/2016 [facility] HEMATOLOGY INR 1.18 0.85 - 1.17 11/07/2016 [facility] HEMATOLOGY PT 15.2 12.0 - 14.7 11/07/2016 [facility] IMMUNOLOGY C-REACTIVE PROTEIN 163.0 <=2.9 mg/L 11/07/2016 [facility] CHEM PANEL eGFR 49 10/25/2016 Result Comment: The eGFR is calculated using the CKD-EPI formula. In most young, healthy individuals the eGFR will be >90 mL/min/1.73m2. The eGFR declines with age. An eGFR of 60-89 may be normal in some populations, particularly the elderly, for whom the CKD-EPI formula has not been extensively validated. Use of the eGFR is not recommended in the following populations:

Individuals with unstable creatinine concentrations, including patients and those with serious co-morbid conditions.

Patients with extremes in muscle mass or diet.

The data above are obtained from the National Kidney Disease Education Program (NKDEP) which additionally recommends that when the eGFR is used in patients with extremes of body mass index for purposes of drug dosing, the eGFR should be multiplied by the estimated BMI. [facility] CHEM PANEL Chloride Lvl 125 95 - 109 10/25/2016 [facility] CHEM PANEL CO2 12 24 - 32 10/25/2016 [facility] CHEM PANEL Potassium Lvl 3.7 3.5 - 5.1 10/25/2016 [facility] CHEM PANEL Sodium Lvl 147 135 - 145 10/25/2016 [facility] CHEM PANEL Creatinine Lvl 1.80 0.50 - 1.40 10/25/2016 [facility] CHEM PANEL BUN 22 7 - 22 10/25/2016 [facility] CHEM PANEL Glucose Lvl 67 70 - 99 10/25/2016 [facility] CHEM PANEL Calcium Lvl 5.7 8.5 - 10.5 10/25/2016 Result Comment: Critical Result(s) loulou montanez at 10/25/2016 07:18 by tootie. Read back OK. [facility] CHEM PANEL AGAP 13.7 10.0 - 20.0 10/25/2016 [facility] HEMATOLOGY PT 16.2 12.0 - 14.7 10/24/2016 [facility] HEMATOLOGY INR 1.27 0.85 - 1.17 10/24/2016 [facility] CHEM PANEL eGFR 30 10/24/2016 Result Comment: The eGFR is calculated using the CKD-EPI formula. In most young, healthy individuals the eGFR will be >90 mL/min/1.73m2. The eGFR declines with age. An eGFR of 60-89 may be normal in some populations, particularly the elderly, for whom the CKD-EPI formula has not been extensively validated. Use of the eGFR is not recommended in the following populations:

Individuals with unstable creatinine concentrations, including patients and those with serious co-morbid conditions.

Patients with extremes in muscle mass or diet.

The data above are obtained from the National Kidney Disease Education Program (NKDEP) which additionally recommends that when the eGFR is used in patients with extremes of body mass index for purposes of drug dosing, the eGFR should be multiplied by the estimated BMI. [facility] CHEM PANEL AGAP 14.5 10.0 - 20.0 10/24/2016 [facility] CHEM PANEL Potassium Lvl 4.5 3.5 - 5.1 10/24/2016 [facility] CHEM PANEL Chloride Lvl 111 95 - 109 10/24/2016 [facility] CHEM PANEL CO2 21 24 - 32 10/24/2016 [facility] CHEM PANEL Glucose Lvl 117 70 - 99 10/24/2016 [facility] CHEM PANEL BUN 31 7 - 22 10/24/2016 [facility] CHEM PANEL Creatinine Lvl 2.70 0.50 - 1.40 10/24/2016 [facility] CHEM PANEL Sodium Lvl 142 135 - 145 10/24/2016 [facility] CHEM PANEL Calcium Lvl 7.8 8.5 - 10.5 10/24/2016 [facility] ELECTROLYTES AGAP 16.7 10.0 - 20.0 10/24/2016 [facility] ELECTROLYTES eGFR 30 10/24/2016 Result Comment: The eGFR is calculated using the CKD-EPI formula. In most young, healthy individuals the eGFR will be >90 mL/min/1.73m2. The eGFR declines with age. An eGFR of 60-89 may be normal in some populations, particularly the elderly, for whom the CKD-EPI formula has not been extensively validated. Use of the eGFR is not recommended in the following populations:

Individuals with unstable creatinine concentrations, including patients and those with serious co-morbid conditions.

Patients with extremes in muscle mass or diet.

The data above are obtained from the National Kidney Disease Education Program (NKDEP) which additionally recommends that when the eGFR is used in patients with extremes of body mass index for purposes of drug dosing, the eGFR should be multiplied by the estimated BMI. [facility] ELECTROLYTES Calcium Lvl 8.1 8.5 - 10.5 10/24/2016 [facility] ELECTROLYTES CO2 17 24 - 32 10/24/2016 [facility] ELECTROLYTES Potassium Lvl 5.7 3.5 - 5.1 10/24/2016 [facility] ELECTROLYTES Chloride Lvl 113 95 - 109 10/24/2016 [facility] ELECTROLYTES Sodium Lvl 141 135 - 145 10/24/2016 [facility] ELECTROLYTES Creatinine Lvl 2.7 0 0.50 - 1.40 10/24/2016 [facility] ELECTROLYTES BUN 36 7 - 22 10/24/2016 [facility] ELECTROLYTES Glucose Lvl 83 70 - 99 10/24/2016 [facility] Platelet 453 133 - 450 10/24/2016 [facility] RDW 20.5 11.5 - 14.5 10/24/2016 [facility] MCHC 32.6 32.0 - 36.0 10/24/2016 [facility] MCH 24.7 27.0 - 31.0 10/24/2016 [facility] MPV 7.9 7.4 - 10.4 10/24/2016 [facility] MCV 75.8 80.0 - 94.0 10/24/2016 [facility] Hct 23.3 42.0 - 54.0 10/24/2016 [facility] Hgb 7.6 14.0 - 18.0 10/24/2016 [facility] RBC 3.08 4.70 - 6.10 10/24/2016 [facility] WBC 7.3 3.7 - 10.4 10/24/2016 [facility] CHEM PANEL Vitamin D, 25-OH, Total 1 3 30 - 100 10/24/2016 [facility] CHEM PANEL Osmolality 315 280 - 300 10/24/2016 [facility] URINE CHEM U Osmolality 228 300 - 800 10/24/2016 [facility] HEMATOLOGY Monocytes 8.7 2.0 - 12.0 10/23/2016 [facility] HEMATOLOGY Segs 62.0 45.0 - 75.0 10/23/2016 [facility] Lymphocytes 26.0 20.0 - 40.0 10/23/2016 [facility] Segs-Bands # 6.1 1.5 - 8.1 10/23/2016 [facility] Lymphocytes # 2.5 1.0 - 5.5 10/23/2016 [facility] Monocytes # 0.9 0.0 - 0.8 10/23/2016 [facility] HEMATOLOGY Eosinophils # 0.3 0.0 - 0.5 10/23/2016 [facility] Basophils # 0.1 0.0 - 0.2 10/23/2016 [facility] Anisocyte 1+ *ABN* (10/23/16 5:11 AM) None Seen 10/23/2016 [facility] Basophils 0.6 0.0 - 1.0 10/23/2016 [facility] Eosinophils 2.7 0.0 - 4.0 10/23/2016 [facility] Platelet 511 133 - 450 10/23/2016 [facility] MPV 8.0 7.4 - 10.4 10/23/2016 [facility] MCH 24.1 27.0 - 31.0 10/23/2016 [facility] MCHC 31.6 32.0 - 36.0 10/23/2016 [facility] RDW 20.7 11.5 - 14.5 10/23/2016 [facility] Hct 24.0 42.0 - 54.0 10/23/2016 [facility] MCV 76.1 80.0 - 94.0 10/23/2016 [facility] WBC 9.8 3.7 - 10.4 10/23/2016 [facility] RBC 3.16 4.70 - 6.10 10/23/2016 [facility] Hgb 7.6 14.0 - 18.0 10/23/2016 [facility] CHEM PANEL Phosphorus 4.2 2.5 - 4.5 [facility]03[facility] A/G Ratio 0.6 0.7 - 1.6 10/03/2016 [place] CHEM PANEL ASPARTATE TRANSAMINASE 21 0 - 37 10/03/2016 [place] CHEM PANEL Globulin 5.0 2.7 - 4.2 10/03/2016 [place] CHEM PANEL Bili Total 0.2 0.2 - 1.3 10/03/2016 [place] CHEM PANEL AGAP 15.4 10.0 - 20.0 10/03/2016 [place] CHEM PANEL B/C Ratio 33 6 - 25 10/03/2016 [place] CHEM PANEL Calcium Lvl 8.7 8.5 - 10.5 10/03/2016 [facility] Potassium Lvl 5.4 3.5 - 5.1 10/03/2016 [place] CHEM PANEL CO2 23 24 - 32 10/03/2016 [facility] Sodium Lvl 140 135 - 145 10/03/2016 [facility] CHEM PANEL eGFR 52 10/03/2016 Result Comment: The eGFR is calculated using the CKD-EPI formula. In most young, healthy individuals the eGFR will be >90 mL/min/1.73m2. The eGFR declines with age. An eGFR of 60-89 may be normal in some populations, particularly the elderly, for whom the CKD-EPI formula has not been extensively validated. Use of the eGFR is not recommended in the following populations:

Individuals with unstable creatinine concentrations, including patients and those with serious co-morbid conditions.

Patients with extremes in muscle mass or diet.

The data above are obtained from the National Kidney Disease Education Program (NKDEP) which additionally recommends that when the eGFR is used in patients with extremes of body mass index for purposes of drug dosing, the eGFR should be multiplied by the estimated BMI. [facility] Total Protein 8.2 6.4 - 8.4 10/03/2016 [facility] Chloride Lvl 107 95 - 109 10/03/2016 [facility] CHEM PANEL Creatinine Lvl 1.71 0.50 - 1.40 10/03/2016 [facility] CHEM PANEL BUN 57 7 - 22 10/03/2016 [facility] CHEM PANEL Glucose Lvl 99 70 - 99 10/03/2016 [facility] CHEM PANEL Alk Phos 139 39 - 136 10/03/2016 [facility] CHEM PANEL Albumin Lvl 3.2 3.5 - 5.0 10/03/2016 [facility] CHEM PANEL ALANINE AMINOTRANSFERASE 28 0 - 65 10/03/2016 [facility] CHEM PANEL Magnesium Lvl 1.5 1.8 - 2.4 10/03/2016 [facility] HEMATOLOGY MCV 77.0 80.0 - 94.0 10/03/2016 [facility] HEMATOLOGY Hct 30.3 42.0 - 54.0 10/03/2016 [facility] HEMATOLOGY Hgb 9.8 14.0 - 18.0 10/03/2016 [facility] [place] HEMATOLOGY RBC X 10x6 3.94 4.70 - 6.10 10/03/2016 [facility] WBC X 10x3 9.9 3.7 - 10.4 10/03/2016 [facility] MCHC 32.4 32.0 - 36.0 10/03/2016 [facility] MCH 25.0 27.0 - 31.0 10/03/2016 [facility] Platelet 362 133 - 450 10/03/2016 [facility] RDW 19.7 11.5 - 14.5 10/03/2016 [facility] MPV 8.0 7.4 - 10.4 10/03/2016 [facility] Segs 47.4 45.0 - 75.0 10/03/2016 [facility] Lymphocytes 37.9 20.0 - 40.0 10/03/2016 [facility] Microcyte 1+ *ABN* (10/03/16 1:00 AM) None Seen 10/03/2016 [facility] HEMATOLOGY Eosinophils 3.8 0.0 - 4.0 10/03/2016 [facility] HEMATOLOGY Basophils 0.8 0.0 - 1.0 10/03/2016 [facility] Lymphocytes # 3.8 1.0 - 5.5 10/03/2016 [facility] Segs-Bands # 4.7 1.5 - 8.1 10/03/2016 [facility] Basophils # 0.1 0.0 - 0.2 10/03/2016 [facility] Monocytes # 1.0 0.0 - 0.8 10/03/2016 [facility] Eosinophils # 0.4 0.0 - 0.5 10/03/2016 [facility] Monocytes 10.1 2.0 - 12.0 10/03/2016 [facility] TOXICOLOGY Vanco Tr 15.9 10/03/2016 [facility] TOXICOLOGY Vanco Tr TND 0030 10/03/2016 [facility] CHEM PANEL Phosphorus 4.2 2.5 - 4.5 10/02/2016 [facility] CHEM PANEL eGFR 61 10/02/2016 Result Comment: The eGFR is calculated using the CKD-EPI formula. In most young, healthy individuals the eGFR will be >90 mL/min/1.73m2. The eGFR declines with age. An eGFR of 60-89 may be normal in some populations, particularly the elderly, for whom the CKD-EPI formula has not been extensively validated. Use of the eGFR is not recommended in the following populations:

Individuals with unstable creatinine concentrations, including patients and those with serious co-morbid conditions.

Patients with extremes in muscle mass or diet.

The data above are obtained from the National Kidney Disease Education Program (NKDEP) which additionally recommends that when the eGFR is used in patients with extremes of body mass index for purposes of drug dosing, the eGFR should be multiplied by the estimated BMI. [place] CHEM PANEL Sodium Lvl 140 135 - 145 10/02/2016 [place] CHEM PANEL Potassium Lvl 5.3 3.5 - 5.1 10/02/2016 [place] CHEM PANEL Chloride Lvl 107 95 - 109 10/02/2016 [place] CHEM PANEL CO2 25 24 - 32 10/02/2016 [place] CHEM PANEL Calcium Lvl 8.5 8.5 - 10.5 10/02/2016 [facility] Albumin Lvl 2.8 3.5 - 5.0 10/02/2016 [place] CHEM PANEL Glucose Lvl 98 70 - 99 10/02/2016 [place] CHEM PANEL ALANINE AMINOTRANSFERASE 25 0 - 65 10/02/2016 [place] CHEM PANEL Alk Phos 138 39 - 136 10/02/2016 [place] CHEM PANEL BUN 39 7 - 22 10/02/2016 [facility] CHEM PANEL Creatinine Lvl 1.51 0.50 - 1.40 10/02/2016 [facility] CHEM PANEL ASPARTATE TRANSAMINASE 22 0 - 37 10/02/2016 [facility] Bili Total 0.2 0.2 - 1.3 10/02/2016 [facility] Total Protein 8.0 6.4 - 8.4 10/02/2016 [place] CHEM PANEL Globulin 5.2 2.7 - 4.2 10/02/2016 [place] CHEM PANEL A/G Ratio 0.5 0.7 - 1.6 10/02/2016 [facility] CHEM PANEL AGAP 13.3 10.0 - 20.0 10/02/2016 [facility] CHEM PANEL B/C Ratio 26 6 - 25 10/02/2016 [facility] Magnesium Lvl 1.6 1.8 - 2.4 10/02/2016 [facility] [place] HEMATOLOGY Hct 28.0 42.0 - 54.0 10/02/2016 [facility] MCH 24.9 27.0 - 31.0 10/02/2016 [facility] MCHC 32.8 32.0 - 36.0 10/02/2016 [facility] MCV 76.0 80.0 - 94.0 10/02/2016 [facility] HEMATOLOGY RDW 19.7 11.5 - 14.5 10/02/2016 [facility] HEMATOLOGY Platelet 351 133 - 450 10/02/2016 [facility] HEMATOLOGY WBC X 10x3 7.1 3.7 - 10.4 10/02/2016 [facility] HEMATOLOGY RBC X 10x6 3.68 4.70 - 6.10 10/02/2016 [facility] Hgb 9.2 14.0 - 18.0 10/02/2016 [facility] MPV 7.8 7.4 - 10.4 10/02/2016 [facility] HEMATOLOGY Eosinophils 4.9 0.0 - 4.0 10/02/2016 [facility] HEMATOLOGY Segs-Bands # 3.3 1.5 - 8.1 10/02/2016 [facility] HEMATOLOGY Basophils 0.7 0.0 - 1.0 10/02/2016 [facility] HEMATOLOGY Segs 46.1 45.0 - 75.0 10/02/2016 [facility] Lymphocytes 33.6 20.0 - 40.0 10/02/2016 [facility] HEMATOLOGY Monocytes 14.7 2.0 - 12.0 10/02/2016 [facility] Lymphocytes # 2.4 1.0 - 5.5 10/02/2016 [facility] HEMATOLOGY Eosinophils # 0.3 0.0 - 0.5 10/02/2016 [facility] HEMATOLOGY Monocytes # 1.0 0.0 - 0.8 10/02/2016 [facility] HEMATOLOGY Microcyte 1+ *ABN* (10/02/16 4:01 AM) None Seen 10/02/2016 [facility] TOXICOLOGY Vanco Tr TND 0000 10/01/2016 [facility] TOXICOLOGY Vanco Tr 15.7 10/01/2016 [facility] TOXICOLOGY Vanco Lvl 23.0 09/30/2016 [facility] CHEM PANEL Calcium Lvl 8.9 8.5 - 10.5 09/30/2016 [facility] CHEM PANEL AGAP 14.3 10.0 - 20.0 09/30/2016 [facility] CHEM PANEL Sodium Lvl 140 135 - 145 09/30/2016 [facility] CHEM PANEL Chloride Lvl 105 95 - 109 09/30/2016 [facility] CHEM PANEL CO2 26 24 - 32 09/30/2016 [facility] CHEM PANEL Potassium Lvl 5.3 3.5 - 5.1 09/30/2016 [facility] CHEM PANEL eGFR 75 09/30/2016 Result Comment: The eGFR is calculated using the CKD-EPI formula. In most young, healthy individuals the eGFR will be >90 mL/min/1.73m2. The eGFR declines with age. An eGFR of 60-89 may be normal in some populations, particularly the elderly, for whom the CKD-EPI formula has not been extensively validated. Use of the eGFR is not recommended in the following populations:

Individuals with unstable creatinine concentrations, including patients and those with serious co-morbid conditions.

Patients with extremes in muscle mass or diet.

The data above are obtained from the National Kidney Disease Education Program (NKDEP) which additionally recommends that when the eGFR is used in patients with extremes of body mass index for purposes of drug dosing, the eGFR should be multiplied by the estimated BMI. [facility] CHEM PANEL Creatinine Lvl 1.27 0.50 - 1.40 09/30/2016 [facility] CHEM PANEL Glucose Lvl 94 70 - 99 09/30/2016 [facility] CHEM PANEL BUN 37 7 - 22 09/30/2016 [facility] HEMATOLOGY RDW 19.0 11.5 - 14.5 09/30/2016 [facility] HEMATOLOGY Platelet 346 133 - 450 09/30/2016 [facility] HEMATOLOGY MPV 8.1 7.4 - 10.4 09/30/2016 [facility] HEMATOLOGY RBC X 10x6 3.84 4.70 - 6.10 09/30/2016 [facility] HEMATOLOGY Hgb 9.7 14.0 - 18.0 09/30/2016 [facility] WBC X 10x3 8.5 3.7 - 10.4 09/30/2016 [facility] HEMATOLOGY MCH 25.2 27.0 - 31.0 09/30/2016 [facility] HEMATOLOGY MCHC 32.7 32.0 - 36.0 09/30/2016 [facility] HEMATOLOGY MCV 76.9 80.0 - 94.0 09/30/2016 [facility] HEMATOLOGY Hct 29.6 42.0 - 54.0 09/30/2016 [facility] HEMATOLOGY Lymphocytes # 2.5 1.0 - 5.5 09/30/2016 [facility] HEMATOLOGY Segs 54.4 45.0 - 75.0 09/30/2016 [facility] HEMATOLOGY Basophils 1.0 0.0 - 1.0 09/30/2016 [facility] Segs-Bands # 4.6 1.5 - 8.1 09/30/2016 [facility] Lymphocytes 29.4 20.0 - 40.0 09/30/2016 [facility] HEMATOLOGY Eosinophils 2.8 0.0 - 4.0 09/30/2016 [facility] Monocytes 12.4 2.0 - 12.0 09/30/2016 [facility] Microcyte 1+ *ABN* (09/30/16 5:05 AM) None Seen 09/30/2016 [facility] Basophils # 0.1 0.0 - 0.2 09/30/2016 [facility] Eosinophils # 0.2 0.0 - 0.5 09/30/2016 [facility] Monocytes # 1.1 0.0 - 0.8 09/30/2016 [facility] TOXICOLOGY Vanco Lvl 38.9 09/30/2016 [facility] TOXICOLOGY Vanco Lvl 46.9 09/29/2016 [facility] TOXICOLOGY Vanco Tr TND 03:30 09/29/2016 [facility] TOXICOLOGY Vanco Tr 38.4 09/29/2016 [facility] Basophils # 0.1 0.0 - 0.2 09/28/2016 [facility] ANEMIA STUDY Ferritin Lvl 200 22 - 275 09/26/2016 [facility] ANEMIA STUDY UIBC 171 110 - 370 09/26/2016 [facility] ANEMIA STUDY % Satur Fe 18 12 - 57 09/26/2016 [facility] ANEMIA STUDY TIBC 209 228 - 428 09/26/2016 [facility] ANEMIA STUDY Iron 38 45 - 160 09/26/2016 [facility] ANEMIA STUDY RBC Folate 1122 280 - 791 09/26/2016 [facility] ANEMIA STUDY Folate Lvl 16.6 >=3.0 ng/mL 09/26/2016 [facility] ANEMIA STUDY Vitamin B12 Lvl 295 254 - 1320 09/26/2016 [facility] HEMATOLOGY Plt Morph Leeann l (09/26/16 4:24 AM) 09/26/2016 [facility] HEMATOLOGY RBC Morph Leeann l (09/26/16 4:24 AM) 09/26/2016 [facility] IMMUNOLOGY C-REACTIVE PROTEIN 84.7 <=2.9 mg/L 09/26/2016 [facility] CHEM PANEL Lactic Acid Lvl 0.8 0.5 - 2.2 09/25/2016 [facility] CARDIAC ENZYMES Troponin-I <0.02 0.00 - 0.40 09/25/2016 [facility] CARDIAC ENZYMES CK MB 0.5 0.5 - 3.6 09/25/2016 [facility] CARDIAC ENZYMES Total CK 64 12 - 191 09/25/2016 [facility] CARDIAC ENZYMES CK-MB INDEX 0.8 0.0 - 2.5 09/25/2016 [facility] CHEM PANEL ASPARTATE TRANSAMINASE 11 0 - 37 09/25/2016 [facility] CHEM PANEL Bili Total 0.4 0.2 - 1.3 09/25/2016 [facility] CHEM PANEL Total Protein 9.5 6.4 - 8.4 09/25/2016 [facility] CHEM PANEL ALANINE AMINOTRANSFERASE 14 0 - 65 09/25/2016 [facility] CHEM PANEL Alk Phos 115 39 - 136 09/25/2016 [facility] CHEM PANEL Albumin Lvl 3.4 3.5 - 5.0 09/25/2016 [facility] CHEM PANEL A/G Ratio 0.6 0.7 - 1.6 09/25/2016 [facility] CHEM PANEL Globulin 6.1 2.7 - 4.2 09/25/2016 [facility] CHEM PANEL B/C Ratio 15 6 - 25 09/25/2016 [facility] [facility] CHEM PANEL eGFR 57 09/22/2016 Result Comment: The eGFR is calculated using the CKD-EPI formula. In most young, healthy individuals the eGFR will be >90 mL/min/1.73m2. The eGFR declines with age. An eGFR of 60-89 may be normal in some populations, particularly the elderly, for whom the CKD-EPI formula has not been extensively validated. Use of the eGFR is not recommended in the following populations:

Individuals with unstable creatinine concentrations, including patients and those with serious co-morbid conditions.

Patients with extremes in muscle mass or diet.

The data above are obtained from the National Kidney Disease Education Program (NKDEP) which additionally recommends that when the eGFR is used in patients with extremes of body mass index for purposes of drug dosing, the eGFR should be multiplied by the estimated BMI. [facility] ASPARTATE TRANSAMINASE 8 0 - 37 [facility] Sodium Lvl 140 135 - 145 09/22/2016 [place] CHEM PANEL Chloride Lvl 110 95 - 109 09/22/2016 [facility] Creatinine Lvl 1.60 0.50 - 1.40 09/22/2016 [facility] Potassium Lvl 3.9 3.5 - 5.1 09/22/2016 [facility] BUN 25 7 - 22 09/22/2016 [place] CHEM PANEL CO2 22 24 - 32 09/22/2016 [facility] CHEM PANEL ALANINE AMINOTRANSFERASE 17 0 - 65 09/22/2016 [facility] CHEM PANEL Albumin Lvl 3.3 3.5 - 5.0 09/22/2016 [facility] Alk Phos 117 39 - 136 09/22/2016 [facility] Glucose Lvl 95 70 - 99 09/22/2016 [facility] CHEM PANEL Bili Total 0.3 0.2 - 1.3 09/22/2016 [facility] CHEM PANEL Total Protein 9.5 6.4 - 8.4 09/22/2016 [facility] CHEM PANEL Calcium Lvl 9.3 8.5 - 10.5 09/22/2016 [facility] CHEM PANEL AGAP 11.9 10.0 - 20.0 09/22/2016 [facility] CHEM PANEL B/C Ratio 16 6 - 25 09/22/2016 [facility] CHEM PANEL Globulin 6.2 2.7 - 4.2 09/22/2016 [facility] CHEM PANEL A/G Ratio 0.5 0.7 - 1.6 09/22/2016 [facility] HEMATOLOGY Segs 68.1 45.0 - 75.0 09/22/2016 [facility] HEMATOLOGY Lymphocytes 19.6 20.0 - 40.0 09/22/2016 [facility] HEMATOLOGY Monocytes 8.8 2.0 - 12.0 09/22/2016 [facility] HEMATOLOGY Eosinophils 2.5 0.0 - 4.0 09/22/2016 [facility] HEMATOLOGY Microcyte 1+ *ABN* (09/22/16 1:38 PM) None Seen 09/22/2016 [facility] HEMATOLOGY Segs-Bands # 7.3 1.5 - 8.1 09/22/2016 [facility] HEMATOLOGY Basophils 1.0 0.0 - 1.0 09/22/2016 [facility] HEMATOLOGY Lymphocytes # 2.1 1.0 - 5.5 09/22/2016 [facility] HEMATOLOGY Monocytes # 0.9 0.0 - 0.8 09/22/2016 [facility] HEMATOLOGY Basophils # 0.1 0.0 - 0.2 09/22/2016 [facility] HEMATOLOGY Eosinophils # 0.3 0.0 - 0.5 09/22/2016 [facility] MCV 76.9 80.0 - 94.0 09/22/2016 [facility] Hct 31.2 42.0 - 54.0 09/22/2016 [facility] WBC X 10x3 10.7 3.7 - 10.4 09/22/2016 [facility] RBC X 10x6 4.06 4.70 - 6.10 09/22/2016 [facility] Hgb 10.1 14.0 - 18.0 09/22/2016 [facility] MCHC 32.3 32.0 - 36.0 09/22/2016 [facility] Platelet 547 133 - 450 09/22/2016 [facility] MCH 24.8 27.0 - 31.0 09/22/2016 [facility] RDW 20.1 11.5 - 14.5 09/22/2016 [facility] MPV 7.4 7.4 - 10.4 09/22/2016 [facility] URINE AND STOOL UA RBC 0-2 /HPF 0 - 2 09/10/2016 [facility] URINE AND STOOL UA Leuk Est Moderate *ABN* (09/10/16 2:30 PM) Negative 09/10/2016 [facility] URINE AND STOOL UA Sq Epi Rare /LPF Few /LPF 09/10/2016 [facility] URINE AND STOOL UA WBC 3-5 /HPF None Seen /HPF 09/10/2016 [facility] URINE AND STOOL UA Bacteria Occasional /HPF None Seen /HPF 09/10/2016 [facility] URINE AND STOOL UA Blood Moderate *ABN* (09/10/16 2:30 PM) Negative 09/10/2016 [facility] URINE AND STOOL UA Urobilinogen 0.2 0.1 - 1.0 09/10/2016 [facility] URINE AND STOOL UA Nitrite Negative (09/10/16 2:30 PM) Negative 09/10/2016 [facility] URINE AND STOOL UA Bili Negative *NA* (09/10/16 2:30 PM) Negative 09/10/2016 [facility] URINE AND STOOL UA Color Yellow *NA* (09/10/16 2:30 PM) Yellow 09/10/2016 [facility] URINE AND STOOL UA Turbidity Clear (09/10/16 2:30 PM) Clear 09/10/2016 [facility] URINE AND STOOL UA Spec Grav 1.010 <=1.030 09/10/2016 [facility] URINE AND STOOL UA pH 7.0 5.0 - 8.0 09/10/2016 [facility] URINE AND STOOL UA Protein 30 mg/dL Negative mg/dL 09/10/2016 [facility] URINE AND STOOL UA Glucose Negative (09/10/16 2:30 PM) Negative 09/10/2016 [facility] URINE AND STOOL UA Ketones Negative *NA* (09/10/16 2:30 PM) Negative 09/10/2016 [facility] CHEM PANEL Lactic Acid Lvl 1.0 0.5 - 2.2 09/10/2016 [facility] ELECTROLYTES AGAP 8.4 10.0 - 20.0 09/10/2016 [facility] ELECTROLYTES eGFR 45 09/10/2016 Result Comment: The eGFR is calculated using the CKD-EPI formula. In most young, healthy individuals the eGFR will be >90 mL/min/1.73m2. The eGFR declines with age. An eGFR of 60-89 may be normal in some populations, particularly the elderly, for whom the CKD-EPI formula has not been extensively validated. Use of the eGFR is not recommended in the following populations:

Individuals with unstable creatinine concentrations, including patients and those with serious co-morbid conditions.

Patients with extremes in muscle mass or diet.

The data above are obtained from the National Kidney Disease Education Program (NKDEP) which additionally recommends that when the eGFR is used in patients with extremes of body mass index for purposes of drug dosing, the eGFR should be multiplied by the estimated BMI. [facility] ELECTROLYTES Sodium Lvl 141 135 - 145 09/10/2016 [facility] ELECTROLYTES Potassium Lvl 4.4 3.5 - 5.1 09/10/2016 [facility] ELECTROLYTES Calcium Lvl 8.5 8.5 - 10.5 09/10/2016 [facility] ELECTROLYTES CO2 28 24 - 32 09/10/2016 [facility] ELECTROLYTES Chloride Lvl 109 95 - 109 09/10/2016 [facility] ELECTROLYTES BUN 32 7 - 22 09/10/2016 [facility] ELECTROLYTES Creatinine Lvl 1.9 4 0.50 - 1.40 09/10/2016 [facility] ELECTROLYTES Glucose Lvl 101 70 - 99 09/10/2016 [facility] HEMATOLOGY MPV 7.7 7.4 - 10.4 09/10/2016 [facility] HEMATOLOGY Platelet 234 133 - 450 09/10/2016 [facility] MCH 24.7 27.0 - 31.0 09/10/2016 [facility] HEMATOLOGY RBC X 10x6 3.32 4.70 - 6.10 09/10/2016 [facility] WBC X 10x3 4.7 3.7 - 10.4 09/10/2016 [facility] MCV 76.8 80.0 - 94.0 09/10/2016 [facility] Hgb 8.2 14.0 - 18.0 09/10/2016 [facility] MCHC 32.1 32.0 - 36.0 09/10/2016 [facility] RDW 21.5 11.5 - 14.5 09/10/2016 [facility] Hct 25.5 42.0 - 54.0 09/10/2016 [facility] Monocytes # 0.8 0.0 - 0.8 09/10/2016 [facility] Lymphocytes # 1.4 1.0 - 5.5 09/10/2016 [facility] Eosinophils # 0.3 0.0 - 0.5 09/10/2016 [facility] Microcyte 1+ *ABN* (09/10/16 2:29 PM) None Seen 09/10/2016 [facility] Lymphocytes 29.0 20.0 - 40.0 09/10/2016 [facility] Monocytes 16.5 2.0 - 12.0 09/10/2016 [facility] Segs 48.0 45.0 - 75.0 09/10/2016 [facility] [place] HEMATOLOGY Segs-Bands # 2.3 1.5 - 8.1 09/10/2016 [facility] HEMATOLOGY Eosinophils 5.7 0.0 - 4.0 09/10/2016 [facility] HEMATOLOGY Basophils 0.8 0.0 - 1.0 09/10/2016 [facility] CHEM PANEL BUN 44 7 - 22 09/04/2016 [facility] CHEM PANEL Creatinine Lvl 2.30 0.50 - 1.40 09/04/2016 [facility] Potassium Lvl 4.8 3.5 - 5.1 09/04/2016 [facility] Sodium Lvl 141 135 - 145 09/04/2016 [facility] Chloride Lvl 107 95 - 109 09/04/2016 [facility] Calcium Lvl 8.2 8.5 - 10.5 09/04/2016 [facility] CO2 27 24 - 32 09/04/2016 [facility] Glucose Lvl 134 70 - 99 09/04/2016 [facility] eGFR 36 09/04/2016 Result Comment: The eGFR is calculated using the CKD-EPI formula. In most young, healthy individuals the eGFR will be >90 mL/min/1.73m2. The eGFR declines with age. An eGFR of 60-89 may be normal in some populations, particularly the elderly, for whom the CKD-EPI formula has not been extensively validated. Use of the eGFR is not recommended in the following populations:

Individuals with unstable creatinine concentrations, including patients and those with serious co-morbid conditions.

Patients with extremes in muscle mass or diet.

The data above are obtained from the National Kidney Disease Education Program (NKDEP) which additionally recommends that when the eGFR is used in patients with extremes of body mass index for purposes of drug dosing, the eGFR should be multiplied by the estimated BMI. [facility] CHEM PANEL AGAP 11.8 10.0 - 20.0 09/04/2016 [facility] HEMATOLOGY Microcyte 1+ *ABN* (09/04/16 12:10 PM) None Seen 09/04/2016 [facility] HEMATOLOGY Basophils # 0.1 0.0 - 0.2 09/04/2016 [facility] HEMATOLOGY Eosinophils 8.6 0.0 - 4.0 09/04/2016 [facility] HEMATOLOGY Basophils 0.8 0.0 - 1.0 09/04/2016 [facility] Monocytes # 0.9 0.0 - 0.8 09/04/2016 [facility] HEMATOLOGY Eosinophils # 0.7 0.0 - 0.5 09/04/2016 [facility] Monocytes 11.2 2.0 - 12.0 09/04/2016 [facility] Segs-Bands # 3.0 1.5 - 8.1 09/04/2016 [facility] Lymphocytes # 3.3 1.0 - 5.5 09/04/2016 [facility] Lymphocytes 41.2 20.0 - 40.0 09/04/2016 [facility] Segs 38.2 45.0 - 75.0 09/04/2016 [facility] MCHC 31.5 32.0 - 36.0 09/04/2016 [facility] MCH 24.5 27.0 - 31.0 09/04/2016 [facility] HEMATOLOGY RDW 21.3 11.5 - 14.5 09/04/2016 [facility] Platelet 228 133 - 450 09/04/2016 [facility] Hgb 8.4 14.0 - 18.0 09/04/2016 [facility] Hct 26.6 42.0 - 54.0 09/04/2016 [facility] MCV 77.8 80.0 - 94.0 09/04/2016 [facility] MPV 8.0 7.4 - 10.4 09/04/2016 [facility] RBC X 10x6 3.42 4.70 - 6.10 09/04/2016 [facility] WBC X 10x3 7.9 3.7 - 10.4 09/04/2016 [facility] ELECTROLYTES AGAP 14.1 10.0 - 20.0 09/03/2016 [facility] ELECTROLYTES eGFR 33 09/03/2016 Result Comment: The eGFR is calculated using the CKD-EPI formula. In most young, healthy individuals the eGFR will be >90 mL/min/1.73m2. The eGFR declines with age. An eGFR of 60-89 may be normal in some populations, particularly the elderly, for whom the CKD-EPI formula has not been extensively validated. Use of the eGFR is not recommended in the following populations:

Individuals with unstable creatinine concentrations, including patients and those with serious co-morbid conditions.

Patients with extremes in muscle mass or diet.

The data above are obtained from the National Kidney Disease Education Program (NKDEP) which additionally recommends that when the eGFR is used in patients with extremes of body mass index for purposes of drug dosing, the eGFR should be multiplied by the estimated BMI. [facility] ELECTROLYTES BUN 36 7 - 22 09/03/2016 [facility] ELECTROLYTES Creatinine Lvl 2.5 3 0.50 - 1.40 09/03/2016 [facility] ELECTROLYTES Potassium Lvl 4.1 3.5 - 5.1 09/03/2016 [facility] ELECTROLYTES Glucose Lvl 122 70 - 99 09/03/2016 [facility] ELECTROLYTES Sodium Lvl 144 135 - 145 09/03/2016 [facility] ELECTROLYTES CO2 23 24 - 32 09/03/2016 [facility] ELECTROLYTES Calcium Lvl 8.2 8.5 - 10.5 09/03/2016 [facility] ELECTROLYTES Chloride Lvl 111 95 - 109 09/03/2016 [facility] HEMATOLOGY Sed Rate 72 0 - 15 09/03/2016 [facility] HEMATOLOGY Hgb 8.6 14.0 - 18.0 09/03/2016 [facility] HEMATOLOGY RBC X 10x6 3.56 4.70 - 6.10 09/03/2016 [facility] HEMATOLOGY WBC X 10x3 5.7 3.7 - 10.4 09/03/2016 [facility] HEMATOLOGY MCV 77.8 80.0 - 94.0 09/03/2016 [facility] HEMATOLOGY Hct 27.7 42.0 - 54.0 09/03/2016 [facility] HEMATOLOGY MCH 24.2 27.0 - 31.0 09/03/2016 [facility] HEMATOLOGY MCHC 31.1 32.0 - 36.0 09/03/2016 [facility] HEMATOLOGY RDW 21.4 11.5 - 14.5 09/03/2016 [facility] HEMATOLOGY MPV 8.2 7.4 - 10.4 09/03/2016 [facility] Platelet 224 133 - 450 09/03/2016 [facility] Monocytes # 0.6 0.0 - 0.8 09/03/2016 [facility] Lymphocytes # 2.5 1.0 - 5.5 09/03/2016 [facility] [place] HEMATOLOGY Eosinophils # 0.6 0.0 - 0.5 09/03/2016 [facility] HEMATOLOGY Microcyte 1+ *ABN* (09/03/16 4:30 AM) None Seen 09/03/2016 [facility] HEMATOLOGY Eosinophils 10.4 0.0 - 4.0 09/03/2016 [facility] HEMATOLOGY Monocytes 10.9 2.0 - 12.0 09/03/2016 [facility] HEMATOLOGY Segs-Bands # 2.0 1.5 - 8.1 09/03/2016 [facility] HEMATOLOGY Basophils 0.7 0.0 - 1.0 09/03/2016 [facility] HEMATOLOGY Lymphocytes 43.3 20.0 - 40.0 09/03/2016 [facility] HEMATOLOGY Segs 34.7 45.0 - 75.0 09/03/2016 [facility] IMMUNOLOGY C-REACTIVE PROTEIN 53.7 <=2.9 mg/L 09/03/2016 [facility] CHEM PANEL Glucose Lvl 112 70 - 99 09/02/2016 [facility] CHEM PANEL eGFR 30 09/02/2016 Result Comment: The eGFR is calculated using the CKD-EPI formula. In most young, healthy individuals the eGFR will be >90 mL/min/1.73m2. The eGFR declines with age. An eGFR of 60-89 may be normal in some populations, particularly the elderly, for whom the CKD-EPI formula has not been extensively validated. Use of the eGFR is not recommended in the following populations:

Individuals with unstable creatinine concentrations, including patients and those with serious co-morbid conditions.

Patients with extremes in muscle mass or diet.

The data above are obtained from the National Kidney Disease Education Program (NKDEP) which additionally recommends that when the eGFR is used in patients with extremes of body mass index for purposes of drug dosing, the eGFR should be multiplied by the estimated BMI. [facility] CHEM PANEL Sodium Lvl 145 135 - 145 09/02/2016 [facility] CHEM PANEL BUN 35 7 - 22 09/02/2016 [facility] CHEM PANEL Creatinine Lvl 2.67 0.50 - 1.40 09/02/2016 [facility] CHEM PANEL Potassium Lvl 3.9 3.5 - 5.1 09/02/2016 [facility] CHEM PANEL Chloride Lvl 113 95 - 109 09/02/2016 [facility] CHEM PANEL CO2 22 24 - 32 09/02/2016 [facility] CHEM PANEL Calcium Lvl 8.1 8.5 - 10.5 09/02/2016 [facility] CHEM PANEL AGAP 13.9 10.0 - 20.0 09/02/2016 [facility] HEMATOLOGY Basophils 1.1 0.0 - 1.0 08/31/2016 [facility] HEMATOLOGY Segs-Bands # 5.0 1.5 - 8.1 08/31/2016 [facility] HEMATOLOGY Monocytes 9.9 2.0 - 12.0 08/31/2016 [facility] HEMATOLOGY Eosinophils 3.7 0.0 - 4.0 08/31/2016 [facility] HEMATOLOGY Microcyte 1+ *ABN* (08/31/16 4:25 AM) None Seen 08/31/2016 [facility] HEMATOLOGY Basophils # 0.1 0.0 - 0.2 08/31/2016 [facility] HEMATOLOGY Monocytes # 0.9 0.0 - 0.8 08/31/2016 [facility] HEMATOLOGY Eosinophils # 0.3 0.0 - 0.5 08/31/2016 [facility] Lymphocytes # 3.0 1.0 - 5.5 08/31/2016 [facility] HEMATOLOGY Segs 53.4 45.0 - 75.0 08/31/2016 [facility] Lymphocytes 31.9 20.0 - 40.0 08/31/2016 [facility] HEMATOLOGY WBC X 10x3 9.3 3.7 - 10.4 08/31/2016 [facility] HEMATOLOGY Hct 26.8 42.0 - 54.0 08/31/2016 [facility] HEMATOLOGY MCV 76.2 80.0 - 94.0 08/31/2016 [facility] HEMATOLOGY RBC X 10x6 3.51 4.70 - 6.10 08/31/2016 [facility] HEMATOLOGY Hgb 8.5 14.0 - 18.0 08/31/2016 [facility] Platelet 253 133 - 450 08/31/2016 [facility] MPV 8.3 7.4 - 10.4 08/31/2016 [facility] MCHC 31.8 32.0 - 36.0 08/31/2016 [facility] RDW 21.2 11.5 - 14.5 08/31/2016 [facility] MCH 24.3 27.0 - 31.0 08/31/2016 [facility] DRUG SCREEN U Benzodia Scr Nega tive *NA* (08/30/16 6:30 AM) Negative 08/30/2016 [facility] DRUG SCREEN U Cocaine Scr Nega tive *NA* (08/30/16 6:30 AM) Negative 08/30/2016 [facility] DRUG SCREEN UDS Note See Note *NA* (08/30/16 6:30 AM) 08/30/2016 [facility] DRUG SCREEN U Amph Scr Nega tive *NA* (08/30/16 6:30 AM) Negative 08/30/2016 [facility] DRUG SCREEN U Chelsie Scr Nega tive *NA* (08/30/16 6:30 AM) Negative 08/30/2016 [facility] DRUG SCREEN U Phencyc Scr Nega tive *NA* (08/30/16 6:30 AM) Negative 08/30/2016 [facility] DRUG SCREEN U Cannab Scr Nega tive *NA* (08/30/16 6:30 AM) Negative 08/30/2016 [facility] DRUG SCREEN U Opiate Scr Nega tive *NA* (08/30/16 6:30 AM) Negative 08/30/2016 [facility] CARDIAC ENZYMES Troponin-I 0.02 0.00 - 0.40 08/30/2016 [facility] CHEM PANEL Globulin 6.4 2.7 - 4.2 08/30/2016 [facility] CHEM PANEL A/G Ratio 0.5 0.7 - 1.6 08/30/2016 [facility] CHEM PANEL B/C Ratio 11 6 - 25 08/30/2016 [facility] CHEM PANEL Bili Total 0.3 0.2 - 1.3 08/30/2016 [facility] CHEM PANEL ASPARTATE TRANSAMINASE 17 0 - 37 08/30/2016 [facility] CHEM PANEL Total Protein 9.8 6.4 - 8.4 08/30/2016 [facility] CHEM PANEL Albumin Lvl 3.4 3.5 - 5.0 08/30/2016 [facility] CHEM PANEL Alk Phos 104 39 - 136 08/30/2016 [facility] CHEM PANEL ALANINE AMINOTRANSFERASE 31 0 - 65 08/30/2016 [facility] HEMATOLOGY INR 1.11 0.85 - 1.17 08/30/2016 [facility] HEMATOLOGY PROTIME 14.5 12.0 - 14.7 08/30/2016 [facility] HEMATOLOGY aPTT 34.0 22.9 - 35.8 08/30/2016 [facility] CHEM PANEL Lactic Acid Lvl 1.5 0.5 - 2.2 08/30/2016 [facility] HEMATOLOGY Basophils # 0.1 0.0 - 0.2 08/30/2016 [facility] URINE AND STOOL UA Urobilinogen 0.2 0.1 - 1.0 08/30/2016 [facility] URINE AND STOOL UA Leuk Est Moderate *ABN* (08/29/16 11:37 PM) Negative 08/30/2016 [facility] URINE AND STOOL UA Nitrite Negative (08/29/16 11:37 PM) Negative 08/30/2016 [facility] URINE AND STOOL UA Bili Negative *NA* (08/29/16 11:37 PM) Negative 08/30/2016 [facility] URINE AND STOOL UA Blood Large *ABN* (08/29/16 11:37 PM) Negative 08/30/2016 [facility] URINE AND STOOL UA Ketones Negative *NA* (08/29/16 11:37 PM) Negative 08/30/2016 [facility] URINE AND STOOL UA Glucose 250 mg/dL Negative mg/dL 08/30/2016 [facility] URINE AND STOOL UA pH 6.5 5.0 - 8.0 08/30/2016 [facility] URINE AND STOOL UA Protein 100 mg/dL Negative mg/dL 08/30/2016 [facility] URINE AND STOOL UA Turbidity Clear (08/29/16 11:37 PM) Clear 08/30/2016 [facility] URINE AND STOOL UA Spec Grav 1.020 <=1.030 08/30/2016 [facility] URINE AND STOOL UA Color Yellow *NA* (08/29/16 11:37 PM) Yellow 08/30/2016 [facility] URINE AND STOOL UA RBC 6-10 /HPF 0 - 2 08/30/2016 [facility] URINE AND STOOL UA WBC 6-10 /HPF None Seen /HPF 08/30/2016 [facility] URINE AND STOOL UA Sq Epi None Seen (08/29/16 11:37 PM) Few 08/30/2016 [facility] URINE AND STOOL UA Clay Yeast Occasional /HPF None Seen /HPF 08/30/2016 [facility] CARDIAC ENZYMES CK MB Index 2.0 0.0 - 2.5 08/23/2016 [facility] CARDIAC ENZYMES Troponin-I <0.02 0.00 - 0.40 08/23/2016 [facility] CARDIAC ENZYMES CK MB 1.0 0.5 - 3.6 08/23/2016 [facility] CARDIAC ENZYMES Total CK 51 12 - 191 08/23/2016 [facility] CHEM PANEL eGFR 10 08/23/2016 Result Comment: The eGFR is calculated using the CKD-EPI formula. In most young, healthy individuals the eGFR will be >90 mL/min/1.73m2. The eGFR declines with age. An eGFR of 60-89 may be normal in some populations, particularly the elderly, for whom the CKD-EPI formula has not been extensively validated. Use of the eGFR is not recommended in the following populations:

Individuals with unstable creatinine concentrations, including patients and those with serious co-morbid conditions.

Patients with extremes in muscle mass or diet.

The data above are obtained from the National Kidney Disease Education Program (NKDEP) which additionally recommends that when the eGFR is used in patients with extremes of body mass index for purposes of drug dosing, the eGFR should be multiplied by the estimated BMI. [facility] CHEM PANEL A/G Ratio 0.5 0.7 - 1.6 08/23/2016 [facility] CHEM PANEL B/C Ratio 17 6 - 25 08/23/2016 [facility] CHEM PANEL Globulin 5.7 2.7 - 4.2 08/23/2016 [facility] CHEM PANEL AGAP 14.9 10.0 - 20.0 08/23/2016 [facility] CHEM PANEL Creatinine Lvl 6.50 0.50 - 1.40 08/23/2016 [facility] CHEM PANEL Sodium Lvl 134 135 - 145 08/23/2016 [facility] CHEM PANEL BUN 108 7 - 22 08/23/2016 [facility] CHEM PANEL Calcium Lvl 8.6 8.5 - 10.5 08/23/2016 [facility] CHEM PANEL ALT 16 0 - 65 08/23/2016 [facility] CHEM PANEL Albumin Lvl 2.8 3.5 - 5.0 08/23/2016 [facility] CHEM PANEL Potassium Lvl 5.9 3.5 - 5.1 08/23/2016 [facility] CHEM PANEL Chloride Lvl 104 95 - 109 08/23/2016 [facility] CHEM PANEL CO2 21 24 - 32 08/23/2016 [facility] CHEM PANEL Alk Phos 87 39 - 136 08/23/2016 [facility] CHEM PANEL Total Protein 8.5 6.4 - 8.4 08/23/2016 [facility] [facility] AST 10 0 - 37 08/23/2016 [facility] CHEM PANEL Bili Total 0.1 0.2 - 1.3 08/23/2016 [facility] CHEM PANEL Glucose Lvl 85 70 - 99 08/23/2016 [facility] HEMATOLOGY PTT 34.8 22.9 - 35.8 08/23/2016 [facility] HEMATOLOGY PT 13.0 12.0 - 14.7 08/23/2016 [facility] HEMATOLOGY INR 0.96 0.85 - 1.17 08/23/2016 [facility] HEMATOLOGY MPV 8.4 7.4 - 10.4 08/23/2016 [facility] HEMATOLOGY Platelet 362 133 - 450 08/23/2016 [facility] HEMATOLOGY RDW 20.7 11.5 - 14.5 08/23/2016 [facility] MCHC 31.9 32.0 - 36.0 08/23/2016 [facility] HEMATOLOGY MCV 76.3 80.0 - 94.0 08/23/2016 [facility] HEMATOLOGY MCH 24.4 27.0 - 31.0 08/23/2016 [facility] HEMATOLOGY Hct 27.6 42.0 - 54.0 08/23/2016 [facility] HEMATOLOGY Hgb 8.8 14.0 - 18.0 08/23/2016 [facility] HEMATOLOGY RBC 3.62 4.70 - 6.10 08/23/2016 [facility] HEMATOLOGY WBC 8.0 3.7 - 10.4 08/23/2016 [facility] HEMATOLOGY Microcyte 1+ *ABN* (08/23/16 5:27 PM) None Seen 08/23/2016 [facility] HEMATOLOGY Basophils # 0.1 0.0 - 0.2 08/23/2016 [facility] HEMATOLOGY Monocytes # 0.8 0.0 - 0.8 08/23/2016 [facility] HEMATOLOGY Eosinophils # 0.4 0.0 - 0.5 08/23/2016 [facility] HEMATOLOGY Lymphocytes # 2.9 1.0 - 5.5 08/23/2016 [facility] HEMATOLOGY Segs-Bands # 3.9 1.5 - 8.1 08/23/2016 [facility] HEMATOLOGY Eosinophils 4.7 0.0 - 4.0 08/23/2016 [facility] HEMATOLOGY Monocytes 9.5 2.0 - 12.0 08/23/2016 [facility] HEMATOLOGY Basophils 1.1 0.0 - 1.0 08/23/2016 [facility] HEMATOLOGY Segs 48.6 45.0 - 75.0 08/23/2016 [facility] HEMATOLOGY Lymphocytes 36.1 20.0 - 40.0 08/23/2016 [facility] URINE AND STOOL UA Urobilinogen <=1.0 mg/dL 0.1 - 1.0 08/23/2016 [facility] URINE AND STOOL UA Color Colorless 08/23/2016 [facility] URINE AND STOOL UA Sq Epi None Seen 08/23/2016 [facility] URINE AND STOOL UA Glucose 150 mg/dL Negative mg/dL 08/23/2016 [facility] URINE AND STOOL UA Ketones Negative mg/dL Negative mg/dL 08/23/2016 [facility] URINE AND STOOL UA Protein 30 mg/dL Negative mg/dL 08/23/2016 [facility] URINE AND STOOL UA Nitrite Negative (08/23/16 5:27 PM) Negative 08/23/2016 [facility] URINE AND STOOL UA Leuk Est Trace *ABN* (08/23/16 5:27 PM) Negative 08/23/2016 [facility] URINE AND STOOL UA RBC 3 0 - 2 08/23/2016 [facility] URINE AND STOOL UA WBC 11 0 - 5 08/23/2016 [facility] URINE AND STOOL UA Blood Small *ABN* (08/23/16 5:27 PM) Negative 08/23/2016 [facility] URINE AND STOOL UA Bili Negative *NA* (08/23/16 5:27 PM) Negative 08/23/2016 [facility] URINE AND STOOL UA pH 8.0 5.0 - 8.0 08/23/2016 [facility] URINE AND STOOL UA Spec Grav 1.003 <=1.030 08/23/2016 [facility] URINE AND STOOL UA Turbidity Clear (08/23/16 5:27 PM) Clear 08/23/2016 [facility] CHEM PANEL Glucose Lvl 95 70 - 99 08/23/2016 [facility] CHEM PANEL AST 7 0 - 37 08/23/2016 [facility] CHEM PANEL ALT 16 0 - 65 08/23/2016 [facility] CHEM PANEL Bili Total 0.2 0.2 - 1.3 08/23/2016 [facility] CHEM PANEL Alk Phos 80 39 - 136 08/23/2016 [facility] CHEM PANEL Albumin Lvl 2.5 3.5 - 5.0 08/23/2016 [facility] CHEM PANEL Sodium Lvl 137 135 - 145 08/23/2016 [facility] CHEM PANEL Chloride Lvl 107 95 - 109 08/23/2016 [facility] CHEM PANEL Potassium Lvl 5.7 3.5 - 5.1 08/23/2016 [facility] CHEM PANEL Creatinine Lvl 6.80 0.50 - 1.40 08/23/2016 [facility] CHEM PANEL BUN 103 7 - 22 08/23/2016 [facility] CHEM PANEL Total Protein 7.6 6.4 - 8.4 08/23/2016 [facility] CHEM PANEL Calcium Lvl 8.5 8.5 - 10.5 08/23/2016 [facility] CHEM PANEL CO2 17 24 - 32 08/23/2016 [facility] CHEM PANEL eGFR 10 08/23/2016 Result Comment: The eGFR is calculated using the CKD-EPI formula. In most young, healthy individuals the eGFR will be >90 mL/min/1.73m2. The eGFR declines with age. An eGFR of 60-89 may be normal in some populations, particularly the elderly, for whom the CKD-EPI formula has not been extensively validated. Use of the eGFR is not recommended in the following populations:

Individuals with unstable creatinine concentrations, including patients and those with serious co-morbid conditions.

Patients with extremes in muscle mass or diet.

The data above are obtained from the National Kidney Disease Education Program (NKDEP) which additionally recommends that when the eGFR is used in patients with extremes of body mass index for purposes of drug dosing, the eGFR should be multiplied by the estimated BMI. [facility] CHEM PANEL Globulin 5.1 2.7 - 4.2 08/23/2016 [facility] CHEM PANEL B/C Ratio 15 6 - 25 08/23/2016 [facility] CHEM PANEL A/G Ratio 0.5 0.7 - 1.6 08/23/2016 [facility] CHEM PANEL AGAP 18.7 10.0 - 20.0 08/23/2016 [facility] HEMATOLOGY MCV 75.7 80.0 - 94.0 08/23/2016 [facility] HEMATOLOGY Hgb 8.6 14.0 - 18.0 08/23/2016 [facility] HEMATOLOGY RBC 3.53 4.70 - 6.10 08/23/2016 [facility] HEMATOLOGY MPV 8.1 7.4 - 10.4 08/23/2016 [facility] HEMATOLOGY Hct 26.7 42.0 - 54.0 08/23/2016 [facility] WBC 7.9 3.7 - 10.4 08/23/2016 [facility] MCHC 32.0 32.0 - 36.0 08/23/2016 [facility] MCH 24.2 27.0 - 31.0 08/23/2016 [facility] Platelet 350 133 - 450 08/23/2016 [facility] RDW 20.8 11.5 - 14.5 08/23/2016 [facility] Eosinophils 5.1 0.0 - 4.0 08/23/2016 [facility] Monocytes 9.9 2.0 - 12.0 08/23/2016 [facility] Segs-Bands # 3.4 1.5 - 8.1 08/23/2016 [facility] Basophils 0.9 0.0 - 1.0 08/23/2016 [facility] Eosinophils # 0.4 0.0 - 0.5 08/23/2016 [facility] Monocytes # 0.8 0.0 - 0.8 08/23/2016 [facility] Lymphocytes # 3.3 1.0 - 5.5 08/23/2016 [facility] Microcyte 1+ *ABN* (08/23/16 6:07 AM) None Seen 08/23/2016 [facility] Basophils # 0.1 0.0 - 0.2 08/23/2016 [facility] Lymphocytes 41.5 20.0 - 40.0 08/23/2016 [facility] Segs 42.6 45.0 - 75.0 08/23/2016 [facility] CHEM PANEL eGFR 10 08/22/2016 Result Comment: The eGFR is calculated using the CKD-EPI formula. In most young, healthy individuals the eGFR will be >90 mL/min/1.73m2. The eGFR declines with age. An eGFR of 60-89 may be normal in some populations, particularly the elderly, for whom the CKD-EPI formula has not been extensively validated. Use of the eGFR is not recommended in the following populations:

Individuals with unstable creatinine concentrations, including patients and those with serious co-morbid conditions.

Patients with extremes in muscle mass or diet.

The data above are obtained from the National Kidney Disease Education Program (NKDEP) which additionally recommends that when the eGFR is used in patients with extremes of body mass index for purposes of drug dosing, the eGFR should be multiplied by the estimated BMI. [facility] CHEM PANEL CO2 21 24 - 32 08/22/2016 [facility] CHEM PANEL Calcium Lvl 8.1 8.5 - 10.5 08/22/2016 [facility] CHEM PANEL Glucose Lvl 106 70 - 99 08/22/2016 [facility] CHEM PANEL BUN 93 7 - 22 08/22/2016 [facility] CHEM PANEL Creatinine Lvl 6.90 0.50 - 1.40 08/22/2016 [facility] CHEM PANEL Potassium Lvl 5.8 3.5 - 5.1 08/22/2016 [facility] CHEM PANEL Chloride Lvl 105 95 - 109 08/22/2016 [facility] CHEM PANEL Sodium Lvl 138 135 - 145 08/22/2016 [facility] CHEM PANEL AGAP 17.8 10.0 - 20.0 08/22/2016 [facility] Monocytes 12.1 2.0 - 12.0 08/22/2016 [facility] HEMATOLOGY Segs 41.0 45.0 - 75.0 08/22/2016 [facility] Lymphocytes 40.8 20.0 - 40.0 08/22/2016 [facility] Eosinophils 5.2 0.0 - 4.0 08/22/2016 [facility] HEMATOLOGY Basophils # 0.1 0.0 - 0.2 08/22/2016 [facility] Eosinophils # 0.4 0.0 - 0.5 08/22/2016 [facility] Microcyte 1+ *ABN* (08/22/16 5:14 AM) None Seen 08/22/2016 [facility] Monocytes # 0.9 0.0 - 0.8 08/22/2016 [facility] Lymphocytes # 3.1 1.0 - 5.5 08/22/2016 [facility] Basophils 0.9 0.0 - 1.0 08/22/2016 [facility] Segs-Bands # 3.2 1.5 - 8.1 08/22/2016 [facility] MCH 24.1 27.0 - 31.0 08/22/2016 [facility] MPV 8.5 7.4 - 10.4 08/22/2016 [facility] Platelet 371 133 - 450 08/22/2016 [facility] MCHC 31.7 32.0 - 36.0 08/22/2016 [facility] RDW 20.6 11.5 - 14.5 08/22/2016 [facility] HEMATOLOGY Hct 28.2 42.0 - 54.0 08/22/2016 [facility] HEMATOLOGY Hgb 8.9 14.0 - 18.0 08/22/2016 [facility] HEMATOLOGY MCV 76.1 80.0 - 94.0 08/22/2016 [facility] HEMATOLOGY RBC 3.70 4.70 - 6.10 08/22/2016 [facility] HEMATOLOGY WBC 7.7 3.7 - 10.4 08/22/2016 [facility] CHEM PANEL eGFR 9 08/21/2016 Result Comment: The eGFR is calculated using the CKD-EPI formula. In most young, healthy individuals the eGFR will be >90 mL/min/1.73m2. The eGFR declines with age. An eGFR of 60-89 may be normal in some populations, particularly the elderly, for whom the CKD-EPI formula has not been extensively validated. Use of the eGFR is not recommended in the following populations:

Individuals with unstable creatinine concentrations, including patients and those with serious co-morbid conditions.

Patients with extremes in muscle mass or diet.

The data above are obtained from the National Kidney Disease Education Program (NKDEP) which additionally recommends that when the eGFR is used in patients with extremes of body mass index for purposes of drug dosing, the eGFR should be multiplied by the estimated BMI. [facility] CHEM PANEL CO2 21 24 - 32 08/21/2016 [facility] CHEM PANEL Glucose Lvl 116 70 - 99 08/21/2016 [facility] CHEM PANEL Calcium Lvl 8.6 8.5 - 10.5 08/21/2016 [facility] CHEM PANEL Potassium Lvl 5.2 3.5 - 5.1 08/21/2016 [facility] CHEM PANEL Chloride Lvl 104 95 - 109 08/21/2016 [facility] CHEM PANEL Creatinine Lvl 7.10 0.50 - 1.40 08/21/2016 [facility] CHEM PANEL Sodium Lvl 140 135 - 145 08/21/2016 [facility] CHEM PANEL BUN 102 7 - 22 08/21/2016 [facility] CHEM PANEL ALT 21 0 - 65 08/21/2016 [facility] CHEM PANEL Total Protein 7.3 6.4 - 8.4 08/21/2016 [facility] CHEM PANEL Albumin Lvl 2.7 3.5 - 5.0 08/21/2016 [facility] CHEM PANEL Alk Phos 98 39 - 136 08/21/2016 [facility] CHEM PANEL Bili Total 0.1 0.2 - 1.3 08/21/2016 [facility] CHEM PANEL AST 16 0 - 37 08/21/2016 [facility] CHEM PANEL AGAP 20.2 10.0 - 20.0 08/21/2016 [facility] CHEM PANEL A/G Ratio 0.6 0.7 - 1.6 08/21/2016 [facility] CHEM PANEL Globulin 4.6 2.7 - 4.2 08/21/2016 [facility] CHEM PANEL B/C Ratio 14 6 - 25 08/21/2016 [facility] HEMATOLOGY Lymphocytes 39.3 20.0 - 40.0 08/21/2016 [facility] HEMATOLOGY Segs 43.1 45.0 - 75.0 08/21/2016 [facility] HEMATOLOGY Basophils 1.1 0.0 - 1.0 08/21/2016 [facility] HEMATOLOGY Segs-Bands # 4.3 1.5 - 8.1 08/21/2016 [facility] HEMATOLOGY Eosinophils 4.9 0.0 - 4.0 08/21/2016 [facility] HEMATOLOGY Monocytes 11.6 2.0 - 12.0 08/21/2016 [facility] HEMATOLOGY Microcyte 1+ *ABN* (08/21/16 6:05 AM) None Seen 08/21/2016 [facility] HEMATOLOGY Basophils # 0.1 0.0 - 0.2 08/21/2016 [facility] HEMATOLOGY Lymphocytes # 3.9 1.0 - 5.5 08/21/2016 [facility] HEMATOLOGY Eosinophils # 0.5 0.0 - 0.5 08/21/2016 [facility] HEMATOLOGY Monocytes # 1.1 0.0 - 0.8 08/21/2016 [facility] HEMATOLOGY WBC 9.9 3.7 - 10.4 08/21/2016 [facility] HEMATOLOGY RBC 4.03 4.70 - 6.10 08/21/2016 [facility] HEMATOLOGY Hgb 9.8 14.0 - 18.0 08/21/2016 [facility] HEMATOLOGY MCV 77.4 80.0 - 94.0 08/21/2016 [facility] HEMATOLOGY Hct 31.2 42.0 - 54.0 08/21/2016 [facility] HEMATOLOGY Platelet 409 133 - 450 08/21/2016 [facility] HEMATOLOGY MCH 24.4 27.0 - 31.0 08/21/2016 [facility] HEMATOLOGY RDW 21.0 11.5 - 14.5 08/21/2016 [facility] HEMATOLOGY MCHC 31.5 32.0 - 36.0 08/21/2016 [facility] HEMATOLOGY MPV 8.0 7.4 - 10.4 08/21/2016 [facility] CHEM PANEL B/C Ratio 14 6 - 25 08/20/2016 [facility] CHEM PANEL Total Protein 8.6 6.4 - 8.4 08/20/2016 [facility] CHEM PANEL Albumin Lvl 2.9 3.5 - 5.0 08/20/2016 [facility] CHEM PANEL Globulin 5.7 2.7 - 4.2 08/20/2016 [facility] CHEM PANEL A/G Ratio 0.5 0.7 - 1.6 08/20/2016 [facility] CHEM PANEL ALT 25 0 - 65 08/20/2016 [facility] CHEM PANEL Bili Total 0.2 0.2 - 1.3 08/20/2016 [facility] CHEM PANEL AST 18 0 - 37 08/20/2016 [facility] CHEM PANEL Alk Phos 96 39 - 136 08/20/2016 [facility] CHEM PANEL Magnesium Lvl 1.7 1.8 - 2.4 08/18/2016 [facility] CHEM PANEL Phosphorus 2.4 2.5 - 4.5 08/18/2016 [facility] URINE AND STOOL UA Clay Yeast Few /HPF None Seen /HPF 08/18/2016 [facility] URINE AND STOOL UA Trans Epi 20 <=0 /LPF 08/18/2016 [facility] URINE AND STOOL UA Sq Epi None Seen 08/18/2016 [facility] URINE AND STOOL UA pH >=9.0 *ABN* (08/18/16 3:03 AM) 5.0 - 8.0 08/18/2016 [facility] URINE AND STOOL UA Urobilinogen <=1.0 mg/dL 0.1 - 1.0 08/18/2016 [facility] URINE AND STOOL UA Color Ltyellow 08/18/2016 [facility] URINE AND STOOL UA Turbidity Slight *ABN* (08/18/16 3:03 AM) Clear 08/18/2016 [facility] URINE AND STOOL UA Spec Grav 1.012 <=1.030 08/18/2016 [facility] URINE AND STOOL UA Protein 100 mg/dL Negative mg/dL 08/18/2016 [facility] URINE AND STOOL UA Ketones Negative mg/dL Negative mg/dL 08/18/2016 [facility] URINE AND STOOL UA Glucose 50 mg/dL Negative mg/dL 08/18/2016 [facility] URINE AND STOOL UA Bili Negative *NA* (08/18/16 3:03 AM) Negative 08/18/2016 [facility] URINE AND STOOL UA Blood Moderate *ABN* (08/18/16 3:03 AM) Negative 08/18/2016 [facility] URINE AND STOOL UA Nitrite Negative (08/18/16 3:03 AM) Negative 08/18/2016 [facility] URINE AND STOOL UA Leuk Est Moderate *ABN* (08/18/16 3:03 AM) Negative 08/18/2016 [facility] URINE AND STOOL UA Bacteria Occasional /HPF None Seen /HPF 08/18/2016 [facility] URINE AND STOOL UA WBC 98 0 - 5 08/18/2016 [facility] URINE AND STOOL UA RBC 117 0 - 2 08/18/2016 [facility] URINE CHEM U Eos 0-2 *ABN* (08/18/16 3:03 AM) None Seen 08/18/2016 [facility] HEMATOLOGY INR 1.04 0.85 - 1.17 08/16/2016 [facility] HEMATOLOGY PT 13.8 12.0 - 14.7 08/16/2016 [facility] ANEMIA STUDY Ferritin Lvl 102 22 - 275 08/14/2016 [facility] ANEMIA STUDY TIBC 164 228 - 428 08/14/2016 [facility] ANEMIA STUDY Iron 26 45 - 160 08/14/2016 [facility] ANEMIA STUDY % Satur Fe 16 12 - 57 08/14/2016 [facility] ANEMIA STUDY UIBC 138 110 - 370 08/14/2016 [facility] TOXICOLOGY Vanco Tr 11.4 08/14/2016 [facility] TOXICOLOGY Vanco Tr TND 0 08/14/2016 [facility] URINE AND STOOL Occult Bld Stl Negative (08/13/16 4:35 PM) Negative 08/13/2016 [facility] CHEM PANEL Magnesium Lvl 2.2 1.8 - 2.4 08/13/2016 [facility] HEMATOLOGY Sed Rate >100 mm/hr 0 - 15 08/13/2016 [facility] IMMUNOLOGY CRP, High Sensitivity 95. 1 08/13/2016 [facility] CHEM PANEL Lactic Acid Lvl 0.7 0.5 - 2.2 08/12/2016 [facility] CHEM PANEL Magnesium Lvl 2.0 1.8 - 2.4 08/12/2016 [facility] CHEM PANEL Phosphorus 2.4 2.5 - 4.5 08/12/2016 [facility] CHEM PANEL Lactic Acid Lvl 2.5 0.5 - 2.2 08/12/2016 [facility] DRUG SCREEN UDS Note See Note (08/11/16 7:46 PM) 08/12/2016 [facility] DRUG SCREEN U Phencyc Scr Nega tive *NA* (08/11/16 7:46 PM) Negative 08/12/2016 [facility] DRUG SCREEN U Opiate Scr Posi tive *ABN* (08/11/16 7:46 PM) Negative 08/12/2016 [facility] DRUG SCREEN U Cocaine Scr Nega tive *NA* (08/11/16 7:46 PM) Negative 08/12/2016 [facility] DRUG SCREEN U Chelsie Scr Nega tive *NA* (08/11/16 7:46 PM) Negative 08/12/2016 [facility] DRUG SCREEN U Amph Scr Nega tive *NA* (08/11/16 7:46 PM) Negative 08/12/2016 [facility] DRUG SCREEN U Benzodia Scr Nega tive *NA* (08/11/16 7:46 PM) Negative 08/12/2016 [facility] DRUG SCREEN U Cannab Scr Posi tive *ABN* (08/11/16 7:46 PM) Negative 08/12/2016 [facility] CHEM PANEL Lactic Acid Lvl 1.7 0.5 - 2.2 08/11/2016 [facility] URINE AND STOOL UA Urobilinogen <=1.0 mg/dL 0.1 - 1.0 08/11/2016 [facility] URINE AND STOOL UA Mucus Few /LPF None Seen /LPF 08/11/2016 [facility] URINE AND STOOL UA Sq Epi None Seen 08/11/2016 [facility] URINE AND STOOL UA Bacteria Many /HPF None Seen /HPF 08/11/2016 [facility] URINE AND STOOL UA RBC 88 0 - 2 08/11/2016 [facility] URINE AND STOOL UA Ketones Trace mg/dL Negative mg/dL 08/11/2016 [facility] URINE AND STOOL UA Glucose Negative mg/dL Negative mg/dL 08/11/2016 [facility] URINE AND STOOL UA Protein 100 mg/dL Negative mg/dL 08/11/2016 [facility] URINE AND STOOL UA Color Yellow *NA* (08/11/16 1:50 PM) Yellow 08/11/2016 [facility] URINE AND STOOL UA Spec Grav 1.014 <=1.030 08/11/2016 [facility] URINE AND STOOL UA pH 6.0 5.0 - 8.0 08/11/2016 [facility] URINE AND STOOL UA Turbidity Marked *ABN* (08/11/16 1:50 PM) Clear 08/11/2016 [facility] URINE AND STOOL UA WBC >182 0 - 5 08/11/2016 [facility] URINE AND STOOL UA Leuk Est Large *ABN* (08/11/16 1:50 PM) Negative 08/11/2016 [facility] URINE AND STOOL UA Bili Negative *NA* (08/11/16 1:50 PM) Negative 08/11/2016 [facility] URINE AND STOOL UA Nitrite Positive *ABN* (08/11/16 1:50 PM) Negative 08/11/2016 [facility] URINE AND STOOL UA Blood Moderate *ABN* (08/11/16 1:50 PM) Negative 08/11/2016 [facility] ELECTROLYTES AGAP 13.9 10.0 - 20.0 08/10/2016 [facility] ELECTROLYTES B/C Ratio 11 6 - 25 08/10/2016 [facility] ELECTROLYTES Globulin 6.4 2.7 - 4.2 08/10/2016 [facility] ELECTROLYTES A/G Ratio 0.4 0.7 - 1.6 08/10/2016 [facility] ELECTROLYTES eGFR 83 08/10/2016 Result Comment: The eGFR is calculated using the CKD-EPI formula. In most young, healthy individuals the eGFR will be >90 mL/min/1.73m2. The eGFR declines with age. An eGFR of 60-89 may be normal in some populations, particularly the elderly, for whom the CKD-EPI formula has not been extensively validated. Use of the eGFR is not recommended in the following populations:

Individuals with unstable creatinine concentrations, including patients and those with serious co-morbid conditions.

Patients with extremes in muscle mass or diet.

The data above are obtained from the National Kidney Disease Education Program (NKDEP) which additionally recommends that when the eGFR is used in patients with extremes of body mass index for purposes of drug dosing, the eGFR should be multiplied by the estimated BMI. [facility] ELECTROLYTES Bili Total 0.4 0.2 - 1.3 08/10/2016 [facility] ELECTROLYTES Alk Phos 109 39 - 136 08/10/2016 [facility] ELECTROLYTES AST 13 0 - 37 08/10/2016 [facility] ELECTROLYTES ALT 14 0 - 65 08/10/2016 [facility] ELECTROLYTES Albumin Lvl 2.7 3.5 - 5.0 08/10/2016 [facility] ELECTROLYTES Total Protein 9.1 6.4 - 8.4 08/10/2016 [facility] ELECTROLYTES Calcium Lvl 9.3 8.5 - 10.5 08/10/2016 [facility] ELECTROLYTES CO2 25 24 - 32 08/10/2016 [facility] ELECTROLYTES Chloride Lvl 107 95 - 109 08/10/2016 [facility] ELECTROLYTES Potassium Lvl 3.9 3.5 - 5.1 08/10/2016 [facility] ELECTROLYTES Glucose Lvl 98 70 - 99 08/10/2016 [facility] ELECTROLYTES Creatinine Lvl 1.1 7 0.50 - 1.40 08/10/2016 [facility] ELECTROLYTES Sodium Lvl 142 135 - 145 08/10/2016 [facility] ELECTROLYTES BUN 13 7 - 22 08/10/2016 [facility] HEMATOLOGY Segs 73.0 45.0 - 75.0 08/10/2016 [facility] HEMATOLOGY Basophils 0.8 0.0 - 1.0 08/10/2016 [facility] HEMATOLOGY Segs-Bands # 6.6 1.5 - 8.1 08/10/2016 [facility] HEMATOLOGY Monocytes 7.0 2.0 - 12.0 08/10/2016 [facility] HEMATOLOGY Eosinophils 0.4 0.0 - 4.0 08/10/2016 [facility] HEMATOLOGY Lymphocytes 18.8 20.0 - 40.0 08/10/2016 [facility] HEMATOLOGY Basophils # 0.1 0.0 - 0.2 08/10/2016 [facility] HEMATOLOGY Monocytes # 0.6 0.0 - 0.8 08/10/2016 [facility] HEMATOLOGY Lymphocytes # 1.7 1.0 - 5.5 08/10/2016 [facility] HEMATOLOGY Microcyte 1+ *ABN* (08/10/16 5:37 AM) None Seen 08/10/2016 [facility] HEMATOLOGY RBC 4.01 4.70 - 6.10 08/10/2016 [facility] HEMATOLOGY WBC 9.1 3.7 - 10.4 08/10/2016 [facility] HEMATOLOGY RDW 20.1 11.5 - 14.5 08/10/2016 [facility] HEMATOLOGY MCV 76.3 80.0 - 94.0 08/10/2016 [facility] HEMATOLOGY MCH 24.2 27.0 - 31.0 08/10/2016 [facility] HEMATOLOGY Hct 30.6 42.0 - 54.0 08/10/2016 [facility] HEMATOLOGY Platelet 413 133 - 450 08/10/2016 [facility] HEMATOLOGY MPV 7.5 7.4 - 10.4 08/10/2016 [facility] HEMATOLOGY Hgb 9.7 14.0 - 18.0 08/10/2016 [facility] HEMATOLOGY MCHC 31.8 32.0 - 36.0 08/10/2016 [facility] URINE AND STOOL UA Blood Small *ABN* (08/10/16 5:37 AM) Negative 08/10/2016 [facility] URINE AND STOOL UA Bili Negative *NA* (08/10/16 5:37 AM) Negative 08/10/2016 [facility] URINE AND STOOL UA Ketones Trace *ABN* (08/10/16 5:37 AM) Negative 08/10/2016 [facility] URINE AND STOOL UA WBC Packed *ABN* (08/10/16 5:37 AM) None Seen 08/10/2016 [facility] URINE AND STOOL UA Urobilinogen 0.2 0.1 - 1.0 08/10/2016 [facility] URINE AND STOOL UA Leuk Est Large *ABN* (08/10/16 5:37 AM) Negative 08/10/2016 [facility] URINE AND STOOL UA RBC 6-10 /HPF 0 - 2 08/10/2016 [facility] URINE AND STOOL UA Sq Epi Few /LPF Few /LPF 08/10/2016 [facility] URINE AND STOOL UA Nitrite Positive *ABN* (08/10/16 5:37 AM) Negative 08/10/2016 [facility] URINE AND STOOL UA Bacteria Moderate /HPF None Seen /HPF 08/10/2016 [facility] URINE AND STOOL UA WBC Cast 0-2 /LPF None Seen /LPF 08/10/2016 [facility] URINE AND STOOL UA Mucus None Seen (08/10/16 5:37 AM) None Seen 08/10/2016 [facility] URINE AND STOOL UA Color Yellow *NA* (08/10/16 5:37 AM) Yellow 08/10/2016 [facility] URINE AND STOOL UA Turbidity Slight Cloudy (08/10/16 5:37 AM) Clear 08/10/2016 [facility] URINE AND STOOL UA Protein 100 mg/dL Negative mg/dL 08/10/2016 [facility] URINE AND STOOL UA Glucose Negative (08/10/16 5:37 AM) Negative 08/10/2016 [facility] URINE AND STOOL UA pH 6.5 5.0 - 8.0 08/10/2016 [facility] URINE AND STOOL UA Spec Grav 1.020 <=1.030 08/10/2016 [facility] CHEM PANEL Lactic Acid Lvl 1.7 0.5 - 2.2 06/11/2016 [facility] CHEM PANEL AST 31 0 - 37 06/11/2016 [facility] CHEM PANEL A/G Ratio 0.4 0.7 - 1.6 06/11/2016 [facility] CHEM PANEL Alk Phos 114 39 - 136 06/11/2016 [facility] CHEM PANEL ALT 31 0 - 65 06/11/2016 [facility] CHEM PANEL Bili Total 0.2 0.2 - 1.3 06/11/2016 [facility] CHEM PANEL B/C Ratio 22 6 - 25 06/11/2016 [facility] CHEM PANEL Total Protein 9.0 6.4 - 8.4 06/11/2016 [facility] CHEM PANEL Globulin 6.3 2.7 - 4.2 06/11/2016 [facility] CHEM PANEL Calcium Lvl 9.3 8.5 - 10.5 06/11/2016 [facility] CHEM PANEL Albumin Lvl 2.7 3.5 - 5.0 06/11/2016 [facility] CHEM PANEL eGFR 57 06/11/2016 Result Comment: The eGFR is calculated using the CKD-EPI formula. In most young, healthy individuals the eGFR will be >90 mL/min/1.73m2. The eGFR declines with age. An eGFR of 60-89 may be normal in some populations, particularly the elderly, for whom the CKD-EPI formula has not been extensively validated. Use of the eGFR is not recommended in the following populations:

Individuals with unstable creatinine concentrations, including patients and those with serious co-morbid conditions.

Patients with extremes in muscle mass or diet.

The data above are obtained from the National Kidney Disease Education Program (NKDEP) which additionally recommends that when the eGFR is used in patients with extremes of body mass index for purposes of drug dosing, the eGFR should be multiplied by the estimated BMI. [facility] CHEM PANEL Potassium Lvl 3.9 3.5 - 5.1 06/11/2016 [facility] CHEM PANEL AGAP 16.9 10.0 - 20.0 06/11/2016 [facility] CHEM PANEL Sodium Lvl 140 135 - 145 06/11/2016 [facility] CHEM PANEL Chloride Lvl 103 95 - 109 06/11/2016 [facility] CHEM PANEL CO2 24 24 - 32 06/11/2016 [facility] CHEM PANEL Creatinine Lvl 1.60 0.50 - 1.40 06/11/2016 [facility] CHEM PANEL Glucose Lvl 132 70 - 99 06/11/2016 [facility] CHEM PANEL BUN 36 7 - 22 06/11/2016 [facility] CHEM PANEL Magnesium Lvl 1.9 1.8 - 2.4 06/11/2016 [facility] CHEM PANEL Phosphorus 4.1 2.5 - 4.5 06/11/2016 [facility] HEMATOLOGY RBC 4.16 4.70 - 6.10 06/11/2016 [facility] HEMATOLOGY MCV 79.3 80.0 - 94.0 06/11/2016 [facility] HEMATOLOGY Hgb 10.5 14.0 - 18.0 06/11/2016 [facility] Hct 33.0 42.0 - 54.0 06/11/2016 [facility] WBC 12.5 3.7 - 10.4 06/11/2016 [facility] MCH 25.2 27.0 - 31.0 06/11/2016 [facility] MPV 7.6 7.4 - 10.4 06/11/2016 [facility] RDW 20.1 11.5 - 14.5 06/11/2016 [facility] Platelet 347 133 - 450 06/11/2016 [facility] MCHC 31.8 32.0 - 36.0 06/11/2016 [facility] Microcyte 1+ *ABN* (06/11/16 12:41 AM) None Seen 06/11/2016 [facility] Eosinophils # 0.4 0.0 - 0.5 06/11/2016 [facility] HEMATOLOGY Basophils # 0.1 0.0 - 0.2 06/11/2016 [facility] Monocytes # 1.0 0.0 - 0.8 06/11/2016 [facility] Lymphocytes # 2.2 1.0 - 5.5 06/11/2016 [facility] Segs-Bands # 8.9 1.5 - 8.1 06/11/2016 [facility] HEMATOLOGY Eosinophils 3.3 0.0 - 4.0 06/11/2016 [facility] HEMATOLOGY Basophils 0.5 0.0 - 1.0 06/11/2016 [facility] HEMATOLOGY Lymphocytes 17.3 20.0 - 40.0 06/11/2016 [facility] HEMATOLOGY Monocytes 8.2 2.0 - 12.0 06/11/2016 [facility] HEMATOLOGY Segs 70.7 45.0 - 75.0 06/11/2016 [facility] DRUG SCREEN U Amph Scr Nega tive *NA* (06/10/16 2:59 PM) Negative 06/10/2016 [facility] DRUG SCREEN U Benzodia Scr Posi tive *ABN* (06/10/16 2:59 PM) Negative 06/10/2016 [facility] DRUG SCREEN U Cocaine Scr Nega tive *NA* (06/10/16 2:59 PM) Negative 06/10/2016 [facility] DRUG SCREEN U Chelsie Scr Nega tive *NA* (06/10/16 2:59 PM) Negative 06/10/2016 [facility] DRUG SCREEN U Opiate Scr Nega tive *NA* (06/10/16 2:59 PM) Negative 06/10/2016 [facility] DRUG SCREEN UDS Note See Note (06/10/16 2:59 PM) 06/10/2016 [facility] DRUG SCREEN U Cannab Scr Nega tive *NA* (06/10/16 2:59 PM) Negative 06/10/2016 [facility] DRUG SCREEN U Phencyc Scr Nega tive *NA* (06/10/16 2:59 PM) Negative 06/10/2016 [facility] URINE AND STOOL UA Urobilinogen <=1.0 0.1 - 1.0 06/10/2016 [facility] URINE AND STOOL UA RBC 182 0 - 2 06/10/2016 [facility] URINE AND STOOL UA Sq Epi Few /LPF Few /LPF 06/10/2016 [facility] URINE AND STOOL UA WBC >182 0 - 5 06/10/2016 [facility] URINE AND STOOL UA Leuk Est Large *ABN* (06/10/16 12:59 PM) Negative 06/10/2016 [facility] URINE AND STOOL UA Nitrite Negative (06/10/16 12:59 PM) Negative 06/10/2016 [facility] URINE AND STOOL UA Blood Moderate *ABN* (06/10/16 12:59 PM) Negative 06/10/2016 [facility] URINE AND STOOL UA Bili Negative *NA* (06/10/16 12:59 PM) Negative 06/10/2016 [facility] URINE AND STOOL UA Ketones Negative mg/dL Negative mg/dL 06/10/2016 [facility] URINE AND STOOL UA Clay Yeast Few /HPF None Seen /HPF 06/10/2016 [facility] URINE AND STOOL UA Mucus Few /LPF None Seen /LPF 06/10/2016 [facility] URINE AND STOOL UA Bacteria Occasional /HPF None Seen /HPF 06/10/2016 [facility] URINE AND STOOL UA Protein 30 mg/dL Negative mg/dL 06/10/2016 [facility] URINE AND STOOL UA Spec Grav 1.012 <=1.030 06/10/2016 [facility] URINE AND STOOL UA Glucose Negative mg/dL Negative mg/dL 06/10/2016 [facility] URINE AND STOOL UA pH 6.0 5.0 - 8.0 06/10/2016 [facility] URINE AND STOOL UA Turbidity Clear (06/10/16 12:59 PM) Clear 06/10/2016 [facility] URINE AND STOOL UA Color Yellow *NA* (06/10/16 12:59 PM) Yellow 06/10/2016 [facility] URINE CHEM U Urea 487 06/10/2016 [facility] URINE CHEM U Sodium 84 06/10/2016 [facility] URINE CHEM U Eos 2-5 *ABN* (06/10/16 12:59 PM) None Seen 06/10/2016 [facility] URINE CHEM U Creatinine 46.60 06/10/2016 [facility] URINE CHEM U Chloride 76 06/10/2016 [facility] CHEM PANEL Procalcitonin Lvl 0.20 0.00 - 0.10 06/10/2016 [facility] CHEM PANEL Lactic Acid Lvl 1.1 0.5 - 2.2 06/10/2016 [facility] CHEM PANEL Phosphorus 4.3 2.5 - 4.5 06/10/2016 [facility] CHEM PANEL Globulin 6.3 2.7 - 4.2 06/10/2016 [facility] CHEM PANEL A/G Ratio 0.4 0.7 - 1.6 06/10/2016 [facility] CHEM PANEL B/C Ratio 23 6 - 25 06/10/2016 [facility] CHEM PANEL AGAP 15.7 10.0 - 20.0 06/10/2016 [facility] CHEM PANEL eGFR 61 06/10/2016 Result Comment: The eGFR is calculated using the CKD-EPI formula. In most young, healthy individuals the eGFR will be >90 mL/min/1.73m2. The eGFR declines with age. An eGFR of 60-89 may be normal in some populations, particularly the elderly, for whom the CKD-EPI formula has not been extensively validated. Use of the eGFR is not recommended in the following populations:

Individuals with unstable creatinine concentrations, including patients and those with serious co-morbid conditions.

Patients with extremes in muscle mass or diet.

The data above are obtained from the National Kidney Disease Education Program (NKDEP) which additionally recommends that when the eGFR is used in patients with extremes of body mass index for purposes of drug dosing, the eGFR should be multiplied by the estimated BMI. [facility] CHEM PANEL Albumin Lvl 2.5 3.5 - 5.0 06/10/2016 [facility] CHEM PANEL ALANINE AMINOTRANSFERASE 30 0 - 65 06/10/2016 [facility] CHEM PANEL CO2 23 24 - 32 06/10/2016 [facility] CHEM PANEL Total Protein 8.8 6.4 - 8.4 06/10/2016 [facility] CHEM PANEL Calcium Lvl 8.8 8.5 - 10.5 06/10/2016 [facility] CHEM PANEL Potassium Lvl 4.7 3.5 - 5.1 06/10/2016 [facility] CHEM PANEL Chloride Lvl 105 95 - 109 06/10/2016 [facility] CHEM PANEL BUN 34 7 - 22 06/10/2016 [facility] CHEM PANEL Creatinine Lvl 1.50 0.50 - 1.40 06/10/2016 [facility] CHEM PANEL Sodium Lvl 139 135 - 145 06/10/2016 [facility] CHEM PANEL Glucose Lvl 97 70 - 99 06/10/2016 [facility] CHEM PANEL Alk Phos 106 39 - 136 06/10/2016 [facility] CHEM PANEL Bili Total 0.2 0.2 - 1.3 06/10/2016 [facility] CHEM PANEL ASPARTATE TRANSAMINASE 36 0 - 37 06/10/2016 [facility] CHEM PANEL Magnesium Lvl 1.8 1.8 - 2.4 06/10/2016 [facility] HEMATOLOGY RBC 4.19 4.70 - 6.10 06/10/2016 [facility] HEMATOLOGY WBC 16.5 3.7 - 10.4 06/10/2016 [facility] HEMATOLOGY MCV 79.3 80.0 - 94.0 06/10/2016 [facility] MCH 25.4 27.0 - 31.0 06/10/2016 [facility] Hgb 10.6 14.0 - 18.0 06/10/2016 [facility] MCHC 32.0 32.0 - 36.0 06/10/2016 [facility] Hct 33.2 42.0 - 54.0 06/10/2016 [facility] MPV 7.7 7.4 - 10.4 06/10/2016 [facility] Platelet 370 133 - 450 06/10/2016 [facility] RDW 20.7 11.5 - 14.5 06/10/2016 [facility] Basophils # 0.2 0.0 - 0.2 06/10/2016 [facility] Microcyte 1+ *ABN* (06/10/16 6:57 AM) None Seen 06/10/2016 [facility] Eosinophils # 0.5 0.0 - 0.5 06/10/2016 [facility] Lymphocytes # 4.2 1.0 - 5.5 06/10/2016 [facility] Monocytes # 1.2 0.0 - 0.8 06/10/2016 [facility] Segs 63.0 45.0 - 75.0 06/10/2016 [facility] Lymphocytes 25.4 20.0 - 40.0 06/10/2016 [facility] Plt Morph Leeann l (06/10/16 6:57 AM) 06/10/2016 [facility] Basophils 1.1 0.0 - 1.0 06/10/2016 [facility] Eosinophils 3.0 0.0 - 4.0 06/10/2016 [facility] Monocytes 7.5 2.0 - 12.0 06/10/2016 [facility] Segs-Bands # 10.4 1.5 - 8.1 06/10/2016 [facility] CHEM PANEL eGFR 80 06/08/2016 Result Comment: The eGFR is calculated using the CKD-EPI formula. In most young, healthy individuals the eGFR will be >90 mL/min/1.73m2. The eGFR declines with age. An eGFR of 60-89 may be normal in some populations, particularly the elderly, for whom the CKD-EPI formula has not been extensively validated. Use of the eGFR is not recommended in the following populations:

Individuals with unstable creatinine concentrations, including patients and those with serious co-morbid conditions.

Patients with extremes in muscle mass or diet.

The data above are obtained from the National Kidney Disease Education Program (NKDEP) which additionally recommends that when the eGFR is used in patients with extremes of body mass index for purposes of drug dosing, the eGFR should be multiplied by the estimated BMI. [facility] CHEM PANEL ALANINE AMINOTRANSFERASE 31 0 - 65 06/08/2016 [facility] CHEM PANEL Alk Phos 100 39 - 136 06/08/2016 [facility] CHEM PANEL Total Protein 8.3 6.4 - 8.4 06/08/2016 [facility] CHEM PANEL Calcium Lvl 9.4 8.5 - 10.5 06/08/2016 [facility] CHEM PANEL Albumin Lvl 2.4 3.5 - 5.0 06/08/2016 [facility] CHEM PANEL CO2 26 24 - 32 06/08/2016 [facility] CHEM PANEL Chloride Lvl 106 95 - 109 06/08/2016 [facility] CHEM PANEL BUN 23 7 - 22 06/08/2016 [facility] CHEM PANEL Glucose Lvl 96 70 - 99 06/08/2016 [facility] CHEM PANEL Potassium Lvl 4.5 3.5 - 5.1 06/08/2016 [facility] CHEM PANEL Sodium Lvl 140 135 - 145 06/08/2016 [facility] CHEM PANEL Creatinine Lvl 1.20 0.50 - 1.40 06/08/2016 [facility] CHEM PANEL ASPARTATE TRANSAMINASE 29 0 - 37 06/08/2016 [facility] CHEM PANEL Bili Total 0.1 0.2 - 1.3 06/08/2016 [facility] CHEM PANEL A/G Ratio 0.4 0.7 - 1.6 06/08/2016 [facility] CHEM PANEL Globulin 5.9 2.7 - 4.2 06/08/2016 [facility] CHEM PANEL AGAP 12.5 10.0 - 20.0 06/08/2016 [facility] CHEM PANEL B/C Ratio 19 6 - 25 06/08/2016 [facility] CHEM PANEL Magnesium Lvl 1.9 1.8 - 2.4 06/08/2016 [facility] CHEM PANEL Phosphorus 3.7 2.5 - 4.5 06/08/2016 [facility] HEMATOLOGY Platelet 381 133 - 450 06/08/2016 [facility] HEMATOLOGY RDW 19.9 11.5 - 14.5 06/08/2016 [facility] MCHC 32.9 32.0 - 36.0 06/08/2016 [facility] MPV 7.5 7.4 - 10.4 06/08/2016 [facility] RBC 3.75 4.70 - 6.10 06/08/2016 [facility] Hgb 9.9 14.0 - 18.0 06/08/2016 [facility] WBC 7.9 3.7 - 10.4 06/08/2016 [facility] MCH 26.3 27.0 - 31.0 06/08/2016 [facility] MCV 80.0 80.0 - 94.0 06/08/2016 [facility] Hct 30.0 42.0 - 54.0 06/08/2016 [facility] Basophils 0.6 0.0 - 1.0 06/08/2016 [facility] Eosinophils 7.7 0.0 - 4.0 06/08/2016 [facility] Segs 55.4 45.0 - 75.0 06/08/2016 [facility] Monocytes 7.7 2.0 - 12.0 06/08/2016 [facility] Lymphocytes 28.6 20.0 - 40.0 06/08/2016 [facility] Basophils # 0.1 0.0 - 0.2 06/08/2016 [facility] Eosinophils # 0.6 0.0 - 0.5 06/08/2016 [facility] Segs-Bands # 4.4 1.5 - 8.1 06/08/2016 [facility] Monocytes # 0.6 0.0 - 0.8 06/08/2016 [facility] Lymphocytes # 2.3 1.0 - 5.5 06/08/2016 [facility] ANEMIA STUDY Vitamin B12 Lvl 383 254 - 1320 06/05/2016 [facility] ANEMIA STUDY UIBC 217 110 - 370 06/05/2016 [facility] ANEMIA STUDY % Satur [place] 12 12 - 57 06/05/2016 [facility] ANEMIA STUDY Iron 30 45 - 160 06/05/2016 [facility] ANEMIA STUDY TIBC 247 228 - 428 06/05/2016 [facility] ANEMIA STUDY Ferritin Lvl 175 22 - 275 06/05/2016 [facility] Plt Morph Leeann l (06/02/16 5:59 AM) 06/02/2016 [facility] RBC Morph Leeann l (06/02/16 5:59 AM) 06/02/2016 [facility] HEMATOLOGY PTT 40.4 22.9 - 35.8 06/01/2016 [facility] HEMATOLOGY PT 15.1 12.0 - 14.7 06/01/2016 [facility] HEMATOLOGY INR 1.17 0.85 - 1.17 06/01/2016 [facility] CHEM PANEL Lactic Acid Lvl 1.0 0.5 - 2.2 06/01/2016 [facility] HEMATOLOGY Anisocyte 1+ *ABN* (06/01/16 1:39 PM) None Seen 06/01/2016 [facility] URINE AND STOOL UA Bacteria Few /HPF None Seen /HPF 06/01/2016 [facility] URINE AND STOOL UA Mucus Few /LPF None Seen /LPF 06/01/2016 [facility] URINE AND STOOL UA Hyph Yeast Moderate /HPF 06/01/2016 [facility] URINE AND STOOL UA Clay Yeast Occasional /HPF None Seen /HPF 06/01/2016 [facility] URINE AND STOOL UA RBC 11-20 /HPF 0 - 2 06/01/2016 [facility] URINE AND STOOL UA WBC >100 /HPF None Seen /HPF 06/01/2016 [facility] URINE AND STOOL UA Sq Epi Moderate /LPF Few /LPF 06/01/2016 [facility] URINE AND STOOL UA Urobilinogen 0.2 0.1 - 1.0 06/01/2016 [facility] URINE AND STOOL UA Nitrite Negative (06/01/16 1:39 PM) Negative 06/01/2016 [facility] URINE AND STOOL UA Leuk Est Large *ABN* (06/01/16 1:39 PM) Negative 06/01/2016 [facility] URINE AND STOOL UA Bili Negative *NA* (06/01/16 1:39 PM) Negative 06/01/2016 [facility] URINE AND STOOL UA Blood Moderate *ABN* (06/01/16 1:39 PM) Negative 06/01/2016 [facility] URINE AND STOOL UA Protein Trace *ABN* (06/01/16 1:39 PM) Negative 06/01/2016 [facility] URINE AND STOOL UA Glucose Negative (06/01/16 1:39 PM) Negative 06/01/2016 [facility] URINE AND STOOL UA Ketones Negative *NA* (06/01/16 1:39 PM) Negative 06/01/2016 [facility] URINE AND STOOL UA pH 7.0 5.0 - 8.0 06/01/2016 [facility] URINE AND STOOL UA Spec Grav 1.010 <=1.030 06/01/2016 [facility] URINE AND STOOL UA Turbidity Slight Cloudy (06/01/16 1:39 PM) Clear 06/01/2016 [facility] URINE AND STOOL UA Color Yellow *NA* (06/01/16 1:39 PM) Yellow 06/01/2016 [facility] CHEM PANEL Procalcitonin Lvl 0.10 0.00 - 0.10 06/01/2016 [facility] CHEM PANEL eGFR 30 01/13/2016 Result Comment: The eGFR is calculated using the CKD-EPI formula. In most young, healthy individuals the eGFR will be >90 mL/min/1.73m2. The eGFR declines with age. An eGFR of 60-89 may be normal in some populations, particularly the elderly, for whom the CKD-EPI formula has not been extensively validated. Use of the eGFR is not recommended in the following populations:

Individuals with unstable creatinine concentrations, including patients and those with serious co-morbid conditions.

Patients with extremes in muscle mass or diet.

The data above are obtained from the National Kidney Disease Education Program (NKDEP) which additionally recommends that when the eGFR is used in patients with extremes of body mass index for purposes of drug dosing, the eGFR should be multiplied by the estimated BMI. [facility] CHEM PANEL Glucose Lvl 102 70 - 99 01/13/2016 [facility] CHEM PANEL BUN 36 7 - 22 01/13/2016 [facility] CHEM PANEL Creatinine Lvl 2.74 0.50 - 1.40 01/13/2016 [facility] CHEM PANEL Sodium Lvl 136 135 - 145 01/13/2016 [facility] CHEM PANEL AGAP 16.1 10.0 - 20.0 01/13/2016 [facility] CHEM PANEL Potassium Lvl 5.1 3.5 - 5.1 01/13/2016 [facility] CHEM PANEL Chloride Lvl 104 95 - 109 01/13/2016 [facility] CHEM PANEL CO2 21 24 - 32 01/13/2016 [facility] CHEM PANEL Calcium Lvl 10.0 8.5 - 10.5 01/13/2016 [facility] CHEM PANEL Glucose Lvl 103 70 - 99 01/13/2016 [facility] CHEM PANEL BUN 34 7 - 22 01/13/2016 [facility] CHEM PANEL Sodium Lvl 137 135 - 145 01/13/2016 [facility] CHEM PANEL Creatinine Lvl 2.78 0.50 - 1.40 01/13/2016 [facility] CHEM PANEL eGFR 29 01/13/2016 Result Comment: The eGFR is calculated using the CKD-EPI formula. In most young, healthy individuals the eGFR will be >90 mL/min/1.73m2. The eGFR declines with age. An eGFR of 60-89 may be normal in some populations, particularly the elderly, for whom the CKD-EPI formula has not been extensively validated. Use of the eGFR is not recommended in the following populations:

Individuals with unstable creatinine concentrations, including patients and those with serious co-morbid conditions.

Patients with extremes in muscle mass or diet.

The data above are obtained from the National Kidney Disease Education Program (NKDEP) which additionally recommends that when the eGFR is used in patients with extremes of body mass index for purposes of drug dosing, the eGFR should be multiplied by the estimated BMI. [facility] CHEM PANEL AGAP 14.8 10.0 - 20.0 01/13/2016 [facility] CHEM PANEL Calcium Lvl 9.7 8.5 - 10.5 01/13/2016 [facility] CHEM PANEL CO2 24 24 - 32 01/13/2016 [facility] CHEM PANEL Chloride Lvl 104 95 - 109 01/13/2016 [facility] CHEM PANEL Potassium Lvl 5.8 3.5 - 5.1 01/13/2016 [facility] CHEM PANEL Magnesium Lvl 1.6 1.8 - 2.4 01/12/2016 [facility] CHEM PANEL Phosphorus 3.9 2.5 - 4.5 01/12/2016 [facility] ELECTROLYTES AGAP 13.0 10.0 - 20.0 01/12/2016 [facility] ELECTROLYTES BUN 34 7 - 22 01/12/2016 [facility] ELECTROLYTES Glucose Lvl 105 70 - 99 01/12/2016 [facility] ELECTROLYTES Creatinine Lvl 3.0 0 0.50 - 1.40 01/12/2016 [facility] ELECTROLYTES Sodium Lvl 138 135 - 145 01/12/2016 [facility] ELECTROLYTES Potassium Lvl 5.0 3.5 - 5.1 01/12/2016 [facility] ELECTROLYTES Calcium Lvl 9.8 8.5 - 10.5 01/12/2016 [facility] ELECTROLYTES eGFR 27 01/12/2016 Result Comment: The eGFR is calculated using the CKD-EPI formula. In most young, healthy individuals the eGFR will be >90 mL/min/1.73m2. The eGFR declines with age. An eGFR of 60-89 may be normal in some populations, particularly the elderly, for whom the CKD-EPI formula has not been extensively validated. Use of the eGFR is not recommended in the following populations:

Individuals with unstable creatinine concentrations, including patients and those with serious co-morbid conditions.

Patients with extremes in muscle mass or diet.

The data above are obtained from the National Kidney Disease Education Program (NKDEP) which additionally recommends that when the eGFR is used in patients with extremes of body mass index for purposes of drug dosing, the eGFR should be multiplied by the estimated BMI. [facility] ELECTROLYTES CO2 20 24 - 32 01/12/2016 [facility] ELECTROLYTES Chloride Lvl 110 95 - 109 01/12/2016 [facility] HEMATOLOGY Platelet 349 133 - 450 01/12/2016 [facility] HEMATOLOGY MPV 7.6 7.4 - 10.4 01/12/2016 [facility] HEMATOLOGY RDW 18.2 11.5 - 14.5 01/12/2016 [facility] HEMATOLOGY MCHC 31.8 32.0 - 36.0 01/12/2016 [facility] HEMATOLOGY MCH 27.0 27.0 - 31.0 01/12/2016 [facility] HEMATOLOGY MCV 84.8 80.0 - 94.0 01/12/2016 [facility] HEMATOLOGY Hct 29.9 42.0 - 54.0 01/12/2016 [facility] HEMATOLOGY Hgb 9.5 14.0 - 18.0 01/12/2016 [facility] HEMATOLOGY RBC 3.52 4.70 - 6.10 01/12/2016 [facility] HEMATOLOGY WBC 8.4 3.7 - 10.4 01/12/2016 [facility] HEMATOLOGY Lymphocytes 34.8 20.0 - 40.0 01/12/2016 [facility] HEMATOLOGY Segs 50.7 45.0 - 75.0 01/12/2016 [facility] HEMATOLOGY Basophils # 0.1 0.0 - 0.2 01/12/2016 [facility] HEMATOLOGY Eosinophils # 0.4 0.0 - 0.5 01/12/2016 [facility] HEMATOLOGY Monocytes # 0.7 0.0 - 0.8 01/12/2016 [facility] HEMATOLOGY Lymphocytes # 2.9 1.0 - 5.5 01/12/2016 [facility] HEMATOLOGY Segs-Bands # 4.3 1.5 - 8.1 01/12/2016 [facility] HEMATOLOGY Basophils 1.2 0.0 - 1.0 01/12/2016 [facility] HEMATOLOGY Eosinophils 4.6 0.0 - 4.0 01/12/2016 [facility] HEMATOLOGY Monocytes 8.7 2.0 - 12.0 01/12/2016 [facility] PARATHYROID PROFILE Ca Ion WB 1.33 1.05 - 1.25 01/12/2016 [facility] PARATHYROID PROFILE Ca Norm WB 1.24 1.05 - 1.25 01/12/2016 [facility] CHEM PANEL Phosphorus 5.5 2.5 - 4.5 01/11/2016 [facility] CHEM PANEL Magnesium Lvl 1.7 1.8 - 2.4 01/11/2016 [facility] CHEM PANEL eGFR 21 01/11/2016 Result Comment: The eGFR is calculated using the CKD-EPI formula. In most young, healthy individuals the eGFR will be >90 mL/min/1.73m2. The eGFR declines with age. An eGFR of 60-89 may be normal in some populations, particularly the elderly, for whom the CKD-EPI formula has not been extensively validated. Use of the eGFR is not recommended in the following populations:

Individuals with unstable creatinine concentrations, including patients and those with serious co-morbid conditions.

Patients with extremes in muscle mass or diet.

The data above are obtained from the National Kidney Disease Education Program (NKDEP) which additionally recommends that when the eGFR is used in patients with extremes of body mass index for purposes of drug dosing, the eGFR should be multiplied by the estimated BMI. [facility] CHEM PANEL Potassium Lvl 5.5 3.5 - 5.1 01/11/2016 [facility] CHEM PANEL Sodium Lvl 140 135 - 145 01/11/2016 [facility] CHEM PANEL Chloride Lvl 109 95 - 109 01/11/2016 [facility] CHEM PANEL CO2 21 24 - 32 01/11/2016 [facility] CHEM PANEL Calcium Lvl 9.4 8.5 - 10.5 01/11/2016 [facility] CHEM PANEL AGAP 15.5 10.0 - 20.0 01/11/2016 [facility] CHEM PANEL Glucose Lvl 81 70 - 99 01/11/2016 [facility] CHEM PANEL Creatinine Lvl 3.71 0.50 - 1.40 01/11/2016 [facility] CHEM PANEL BUN 42 7 - 22 01/11/2016 [facility] HEMATOLOGY MPV 8.3 7.4 - 10.4 01/11/2016 [facility] HEMATOLOGY Platelet 339 133 - 450 01/11/2016 [facility] HEMATOLOGY MCH 27.5 27.0 - 31.0 01/11/2016 [facility] HEMATOLOGY MCV 89.6 80.0 - 94.0 01/11/2016 [facility] HEMATOLOGY Hct 34.7 42.0 - 54.0 01/11/2016 [facility] HEMATOLOGY RDW 19.0 11.5 - 14.5 01/11/2016 [facility] HEMATOLOGY MCHC 30.7 32.0 - 36.0 01/11/2016 [facility] HEMATOLOGY WBC 10.4 3.7 - 10.4 01/11/2016 [facility] HEMATOLOGY RBC 3.87 4.70 - 6.10 01/11/2016 [facility] HEMATOLOGY Hgb 10.7 14.0 - 18.0 01/11/2016 [facility] HEMATOLOGY Monocytes # 0.9 0.0 - 0.8 01/11/2016 [facility] HEMATOLOGY Lymphocytes # 2.5 1.0 - 5.5 01/11/2016 [facility] HEMATOLOGY Segs-Bands # 6.3 1.5 - 8.1 01/11/2016 [facility] HEMATOLOGY Basophils 1.0 0.0 - 1.0 01/11/2016 [facility] HEMATOLOGY Eosinophils 5.0 0.0 - 4.0 01/11/2016 [facility] HEMATOLOGY Basophils # 0.1 0.0 - 0.2 01/11/2016 [facility] HEMATOLOGY Eosinophils # 0.5 0.0 - 0.5 01/11/2016 [facility] HEMATOLOGY Monocytes 8.8 2.0 - 12.0 01/11/2016 [facility] HEMATOLOGY Lymphocytes 24.6 20.0 - 40.0 01/11/2016 [facility] HEMATOLOGY Segs 60.6 45.0 - 75.0 01/11/2016 [facility] PARATHYROID PROFILE Ca Ion WB 1.00 1.05 - 1.25 01/11/2016 [facility] PARATHYROID PROFILE Ca Norm WB 0.97 1.05 - 1.25 01/11/2016 [facility] DRUG SCREEN U Benzodia Scr Posi tive *ABN* (01/10/16 12:16 PM) Negative 01/10/2016 [facility] DRUG SCREEN U Chelsie Scr Nega tive *NA* (01/10/16 12:16 PM) Negative 01/10/2016 [facility] DRUG SCREEN U Cocaine Scr Nega tive *NA* (01/10/16 12:16 PM) Negative 01/10/2016 [facility] DRUG SCREEN U Phencyc Scr Nega tive *NA* (01/10/16 12:16 PM) Negative 01/10/2016 [facility] DRUG SCREEN U Methadone Scr Nega tive *NA* (01/10/16 12:16 PM) Negative 01/10/2016 [facility] DRUG SCREEN U Propoxyph Scr Nega tive *NA* (01/10/16 12:16 PM) Negative 01/10/2016 [facility] DRUG SCREEN U Cannab Scr Posi tive *ABN* (01/10/16 12:16 PM) Negative 01/10/2016 [facility] DRUG SCREEN U Opiate Scr Posi tive *ABN* (01/10/16 12:16 PM) Negative 01/10/2016 [facility] DRUG SCREEN UDS Note See Note (01/10/16 12:16 PM) 01/10/2016 [facility] DRUG SCREEN U Amph Scr Nega tive *NA* (01/10/16 12:16 PM) Negative 01/10/2016 [facility] CARDIAC ENZYMES Total CK 191 12 - 191 01/10/2016 [facility] CHEM PANEL Magnesium Lvl 1.8 1.8 - 2.4 01/10/2016 [facility] CHEM PANEL eGFR 19 01/10/2016 Result Comment: The eGFR is calculated using the CKD-EPI formula. In most young, healthy individuals the eGFR will be >90 mL/min/1.73m2. The eGFR declines with age. An eGFR of 60-89 may be normal in some populations, particularly the elderly, for whom the CKD-EPI formula has not been extensively validated. Use of the eGFR is not recommended in the following populations:

Individuals with unstable creatinine concentrations, including patients and those with serious co-morbid conditions.

Patients with extremes in muscle mass or diet.

The data above are obtained from the National Kidney Disease Education Program (NKDEP) which additionally recommends that when the eGFR is used in patients with extremes of body mass index for purposes of drug dosing, the eGFR should be multiplied by the estimated BMI. [facility] CHEM PANEL Potassium Lvl 4.9 3.5 - 5.1 01/10/2016 [facility] CHEM PANEL Sodium Lvl 140 135 - 145 01/10/2016 [facility] CHEM PANEL Creatinine Lvl 3.92 0.50 - 1.40 01/10/2016 [facility] CHEM PANEL BUN 45 7 - 22 01/10/2016 [facility] CHEM PANEL Glucose Lvl 60 70 - 99 01/10/2016 [facility] CHEM PANEL CO2 21 24 - 32 01/10/2016 [facility] CHEM PANEL Chloride Lvl 108 95 - 109 01/10/2016 [facility] CHEM PANEL Calcium Lvl 9.6 8.5 - 10.5 01/10/2016 [facility] CHEM PANEL AGAP 15.9 10.0 - 20.0 01/10/2016 [facility] CHEM PANEL Phosphorus 5.7 2.5 - 4.5 01/10/2016 [facility] HEMATOLOGY WBC 6.4 3.7 - 10.4 01/10/2016 [facility] HEMATOLOGY RBC 3.80 4.70 - 6.10 01/10/2016 [facility] HEMATOLOGY Platelet 389 133 - 450 01/10/2016 [facility] HEMATOLOGY MPV 7.3 7.4 - 10.4 01/10/2016 [facility] HEMATOLOGY RDW 18.5 11.5 - 14.5 01/10/2016 [facility] HEMATOLOGY MCHC 31.7 32.0 - 36.0 01/10/2016 [facility] HEMATOLOGY MCH 26.9 27.0 - 31.0 01/10/2016 [facility] HEMATOLOGY Hct 32.2 42.0 - 54.0 01/10/2016 [facility] HEMATOLOGY Hgb 10.2 14.0 - 18.0 01/10/2016 [facility] HEMATOLOGY MCV 84.6 80.0 - 94.0 01/10/2016 [facility] HEMATOLOGY Eosinophils # 0.4 0.0 - 0.5 01/10/2016 [facility] HEMATOLOGY Monocytes # 0.8 0.0 - 0.8 01/10/2016 [facility] HEMATOLOGY Lymphocytes # 2.0 1.0 - 5.5 01/10/2016 [facility] HEMATOLOGY Segs-Bands # 3.2 1.5 - 8.1 01/10/2016 [facility] HEMATOLOGY Basophils 1.4 0.0 - 1.0 01/10/2016 [facility] HEMATOLOGY Eosinophils 5.9 0.0 - 4.0 01/10/2016 [facility] HEMATOLOGY Monocytes 12.0 2.0 - 12.0 01/10/2016 [facility] HEMATOLOGY Basophils # 0.1 0.0 - 0.2 01/10/2016 [facility] HEMATOLOGY Lymphocytes 31.5 20.0 - 40.0 01/10/2016 [facility] HEMATOLOGY Segs 49.2 45.0 - 75.0 01/10/2016 [facility] HEMATOLOGY PTT 28.7 22.9 - 35.8 01/09/2016 [facility] PARATHYROID PROFILE Ca Norm WB 1.19 1.05 - 1.25 01/09/2016 [facility] PARATHYROID PROFILE Ca Ion WB 1.25 1.05 - 1.25 01/09/2016 [facility] IMMUNOLOGY C4 Complement 47 16 - 47 01/09/2016 [facility] IMMUNOLOGY C3 Complement 184 88 - 201 01/09/2016 [facility] MOLECULAR DIAGNOSTIC HCV RNA Log10 6.2 01/09/2016 [facility] MOLECULAR DIAGNOSTIC HCV RNA VirLoad [id number] 01/09/2016 [facility] DRUG SCREEN U Benzodia Scr Posi tive *ABN* (01/08/16 9:26 PM) Negative 01/09/2016 [facility] DRUG SCREEN U Cocaine Scr Nega tive *NA* (01/08/16 9:26 PM) Negative 01/09/2016 [facility] DRUG SCREEN U Cannab Scr Posi tive *ABN* (01/08/16 9:26 PM) Negative 01/09/2016 [facility] DRUG SCREEN U Opiate Scr Posi tive *ABN* (01/08/16 9:26 PM) Negative 01/09/2016 [facility] DRUG SCREEN UDS Note See Note (01/08/16 9:26 PM) 01/09/2016 [facility] DRUG SCREEN U Phencyc Scr Nega tive *NA* (01/08/16 9:26 PM) Negative 01/09/2016 [facility] DRUG SCREEN U Chelsie Scr Nega tive *NA* (01/08/16 9:26 PM) Negative 01/09/2016 [facility] DRUG SCREEN U Amph Scr Nega tive *NA* (01/08/16 9:26 PM) Negative 01/09/2016 [facility] URINE CHEM U Eos 0-2 *ABN* (01/08/16 6:30 PM) None Seen 01/08/2016 [facility] URINE CHEM U Creatinine 30.40 01/08/2016 [facility] URINE CHEM U Protein 108.5 01/08/2016 [facility] URINE CHEM U Prot/Creat 3.6 01/08/2016 [facility] URINE AND STOOL Micro? Performed *NA* (01/08/16 2:47 PM) 01/08/2016 [facility] URINE AND STOOL UA Amorph Michelle Occasional /HPF None Seen /HPF 01/08/[address] [facility] [place] [place] URINE AND STOOL UA Mucus Few /LPF None Seen /LPF 01/08/2016 [facility] URINE AND STOOL UA Leuk Est Large *ABN* (01/08/16 2:47 PM) Negative 01/08/2016 [facility] URINE AND STOOL UA Nitrite Negative (01/08/16 2:47 PM) Negative 01/08/2016 [facility] URINE AND STOOL UA WBC 41 0 - 5 01/08/2016 [facility] URINE AND STOOL UA RBC 4 0 - 2 01/08/2016 [facility] URINE AND STOOL UA Bacteria Moderate /HPF None Seen /HPF 01/08/[address] [facility] [place] [place] URINE AND STOOL UA Color Light Yellow *NA* (01/08/16 2:47 PM) Yellow 01/08/2016 [facility] URINE AND STOOL UA Turbidity Slight *ABN* (01/08/16 2:47 PM) Clear 01/08/2016 [facility] URINE AND STOOL UA Ketones Negative mg/dL Negative mg/dL 01/08/[address] [facility] [place] [place] URINE AND STOOL UA Blood Moderate *ABN* (01/08/16 2:47 PM) Negative 01/08/2016 [facility] URINE AND STOOL UA pH 7.5 5.0 - 8.0 01/08/2016 [facility] URINE AND STOOL UA Bili Negative *NA* (01/08/16 2:47 PM) Negative 01/08/2016 [facility] URINE AND STOOL UA Glucose Negative mg/dL Negative mg/dL 01/08/[address] [facility] [place] [place] URINE AND STOOL UA Protein 70 mg/dL Negative mg/dL 01/08/2016 [facility] URINE AND STOOL UA Spec Grav 1.009 <=1.030 01/08/2016 [facility] URINE AND STOOL UA Sq Epi RARE 01/08/2016 [facility] URINE AND STOOL UA Urobilinogen <=1.0 mg/dL 0.1 - 1.0 01/08/2016 [facility] URINE CHEM U Sodium 69 01/08/2016 [facility] URINE CHEM U Potassium 27.5 01/08/2016 [facility] URINE CHEM U Chloride 66 01/08/2016 [facility] DRUG SCREEN U Cocaine Scr Nega tive *NA* (01/07/16 12:25 PM) Negative 01/07/2016 [facility] DRUG SCREEN U Benzodia Scr Posi tive *ABN* (01/07/16 12:25 PM) Negative 01/07/2016 [facility] DRUG SCREEN U Chelsie Scr Nega tive *NA* (01/07/16 12:25 PM) Negative 01/07/2016 [facility] DRUG SCREEN U Amph Scr Nega tive *NA* (01/07/16 12:25 PM) Negative 01/07/2016 [facility] DRUG SCREEN U Phencyc Scr Nega tive *NA* (01/07/16 12:25 PM) Negative 01/07/2016 [facility] DRUG SCREEN U Opiate Scr Posi tive *ABN* (01/07/16 12:25 PM) Negative 01/07/2016 [facility] DRUG SCREEN UDS Note See Note (01/07/16 12:25 PM) 01/07/2016 [facility] DRUG SCREEN U Cannab Scr Posi tive *ABN* (01/07/16 12:25 PM) Negative 01/07/2016 [facility] IMMUNOLOGY HIV Ag/Ab 4th Gen Negat pavel *NA* (01/04/16 10:20 AM) Negative 01/04/2016 [facility] BLOOD BANK RESULTS Antibody Scrn Negative (01/04/16 5:29 AM) 01/04/2016 [facility] BLOOD BANK RESULTS ABO/Rh A POS 01/04/2016 [facility] HEMATOLOGY INR 1.02 0.85 - 1.17 01/04/2016 [facility] HEMATOLOGY PTT 35.0 22.9 - 35.8 01/04/2016 [facility] HEMATOLOGY PT 13.7 12.0 - 14.7 01/04/2016 [facility] HEMATOLOGY PTT 35.1 22.9 - 35.8 01/02/2016 [facility] HEMATOLOGY PT 14.3 12.0 - 14.7 01/02/2016 [facility] HEMATOLOGY INR 1.08 0.85 - 1.17 01/02/2016 [facility] CHEM PANEL A/G Ratio 0.4 0.7 - 1.6 01/01/2016 [facility] CHEM PANEL Globulin 4.4 2.0 - 4.0 01/01/2016 [facility] CHEM PANEL B/C Ratio 9 6 - 25 01/01/2016 [facility] CHEM PANEL Bili Total 0.1 0.2 - 1.3 01/01/2016 [facility] CHEM PANEL Alk Phos 63 39 - 136 01/01/2016 [facility] CHEM PANEL AST 23 0 - 37 01/01/2016 [facility] CHEM PANEL ALT 20 0 - 65 01/01/2016 [facility] CHEM PANEL Albumin Lvl 1.9 3.5 - 5.0 01/01/2016 [facility] CHEM PANEL Total Protein 6.3 6.4 - 8.4 01/01/2016 [facility] HEMATOLOGY INR 1.14 0.85 - 1.17 01/01/2016 [facility] HEMATOLOGY PT 14.9 12.0 - 14.7 01/01/2016 [facility] IMMUNOLOGY HIV 1/2 Ab Negat pavel *NA* (01/01/16 1:52 AM) Negative 01/01/2016 [facility] HEMATOLOGY Sed Rate >100 mm/hr 0 - 15 01/01/2016 [facility] IMMUNOLOGY C-REACTIVE PROTEIN 97.9 <=2.9 mg/L 01/01/2016 [facility] URINE AND STOOL UA Bacteria Many /HPF None Seen /HPF 01/01/2016 [facility] URINE AND STOOL UA RBC 11-20 /HPF 0 - 2 01/01/2016 [facility] URINE AND STOOL UA WBC Packed *ABN* (12/31/15 8:46 PM) None Seen 01/01/2016 [facility] URINE AND STOOL UA Sq Epi Occasional /LPF Few /LPF 01/01/2016 [facility] URINE AND STOOL UA Bili Negative *NA* (12/31/15 8:46 PM) Negative 01/01/2016 [facility] URINE AND STOOL UA Ketones Negative *NA* (12/31/15 8:46 PM) Negative 01/01/2016 [facility] URINE AND STOOL UA Blood Moderate *ABN* (12/31/15 8:46 PM) Negative 01/01/2016 [facility] URINE AND STOOL UA Urobilinogen 0.2 0.1 - 1.0 01/01/2016 [facility] URINE AND STOOL UA Nitrite Positive *ABN* (12/31/15 8:46 PM) Negative 01/01/2016 [facility] URINE AND STOOL UA Leuk Est Large *ABN* (12/31/15 8:46 PM) Negative 01/01/2016 [facility] URINE AND STOOL UA Glucose Negative (12/31/15 8:46 PM) Negative 01/01/2016 [facility] URINE AND STOOL UA Color Yellow *NA* (12/31/15 8:46 PM) Yellow 01/01/2016 [facility] URINE AND STOOL UA Turbidity Cloudy *ABN* (12/31/15 8:46 PM) Clear 01/01/2016 [facility] URINE AND STOOL UA Spec Grav 1.020 <=1.030 01/01/2016 [facility] URINE AND STOOL UA pH 6.0 5.0 - 8.0 01/01/2016 [facility] URINE AND STOOL UA Protein 100 mg/dL Negative mg/dL 01/01/2016 [facility] CHEM PANEL Lactic Acid Lvl 0.4 0.5 - 2.2 01/01/2016 [facility] CHEM PANEL Procalcitonin Lvl 0.06 0.00 - 0.10 01/01/2016 [facility] CHEM PANEL Magnesium Lvl 1.6 1.8 - 2.4 10/20/2015 [facility] CHEM PANEL Globulin 6.2 2.0 - 4.0 10/20/2015 [facility] CHEM PANEL B/C Ratio 15 6 - 25 10/20/2015 [facility] CHEM PANEL AGAP 14.5 10.0 - 20.0 10/20/2015 [facility] CHEM PANEL A/G Ratio 0.4 0.7 - 1.6 10/20/2015 [facility] CHEM PANEL eGFR 90 10/20/2015 Result Comment: The eGFR is calculated using the CKD-EPI formula. In most young, healthy individuals the eGFR will be >90 mL/min/1.73m2. The eGFR declines with age. An eGFR of 60-89 may be normal in some populations, particularly the elderly, for whom the CKD-EPI formula has not been extensively validated. Use of the eGFR is not recommended in the following populations:

Individuals with unstable creatinine concentrations, including patients and those with serious co-morbid conditions.

Patients with extremes in muscle mass or diet.

The data above are obtained from the National Kidney Disease Education Program (NKDEP) which additionally recommends that when the eGFR is used in patients with extremes of body mass index for purposes of drug dosing, the eGFR should be multiplied by the estimated BMI. [facility] CHEM PANEL Chloride Lvl 109 95 - 109 10/20/2015 [facility] CHEM PANEL CO2 21 24 - 32 10/20/2015 [facility] CHEM PANEL Calcium Lvl 8.8 8.5 - 10.5 10/20/2015 [facility] CHEM PANEL Total Protein 8.5 6.4 - 8.4 10/20/2015 [facility] CHEM PANEL Albumin Lvl 2.3 3.5 - 5.0 10/20/2015 [facility] CHEM PANEL Alk Phos 122 39 - 136 10/20/2015 [facility] CHEM PANEL ASPARTATE TRANSAMINASE 25 0 - 37 10/20/2015 [facility] CHEM PANEL ALANINE AMINOTRANSFERASE 29 0 - 65 10/20/2015 [facility] CHEM PANEL Creatinine Lvl 1.10 0.50 - 1.40 10/20/2015 [facility] CHEM PANEL Glucose Lvl 87 70 - 99 10/20/2015 [facility] CHEM PANEL BUN 16 7 - 22 10/20/2015 [facility] CHEM PANEL Sodium Lvl 140 135 - 145 10/20/2015 [facility] CHEM PANEL Potassium Lvl 4.5 3.5 - 5.1 10/20/2015 [facility] CHEM PANEL Bili Total 0.2 0.2 - 1.3 10/20/2015 [facility] HEMATOLOGY Monocytes # 0.9 0.0 - 0.8 10/20/2015 [facility] HEMATOLOGY Basophils 1.3 0.0 - 1.0 10/20/2015 [facility] Eosinophils 1.6 0.0 - 4.0 10/20/2015 [facility] Basophils # 0.1 0.0 - 0.2 10/20/2015 [facility] HEMATOLOGY Eosinophils # 0.1 0.0 - 0.5 10/20/2015 [facility] Lymphocytes # 2.0 1.0 - 5.5 10/20/2015 [facility] Segs-Bands # 5.0 1.5 - 8.1 10/20/2015 [facility] Monocytes 11.1 2.0 - 12.0 10/20/2015 [facility] Lymphocytes 24.8 20.0 - 40.0 10/20/2015 [facility] Segs 61.2 45.0 - 75.0 10/20/2015 [facility] PTT 37.1 22.9 - 35.8 10/20/2015 [facility] INR 1.15 0.85 - 1.17 10/20/2015 [facility] HEMATOLOGY PT 15.0 12.0 - 14.7 10/20/2015 [facility] MCH 29.0 27.0 - 31.0 10/20/2015 [facility] MPV 7.8 7.4 - 10.4 10/20/2015 [facility] RBC 3.01 4.70 - 6.10 10/20/2015 [facility] Hgb 8.8 14.0 - 18.0 10/20/2015 [facility] RDW 21.5 11.5 - 14.5 10/20/2015 [facility] HEMATOLOGY MCHC 32.1 32.0 - 36.0 10/20/2015 [facility] HEMATOLOGY WBC 8.2 3.7 - 10.4 10/20/2015 [facility] HEMATOLOGY MCV 90.6 80.0 - 94.0 10/20/2015 [facility] HEMATOLOGY Hct 27.3 42.0 - 54.0 10/20/2015 [facility] HEMATOLOGY Platelet 550 133 - 450 10/20/2015 [facility] CARDIAC ENZYMES Troponin-I 0.03 0.00 - 0.40 10/19/2015 [facility] CARDIAC ENZYMES CK MB 1.6 0.5 - 3.6 10/19/2015 [facility] CARDIAC ENZYMES CK MB 1.5 0.5 - 3.6 10/19/2015 [facility] CARDIAC ENZYMES Troponin-I 0.03 0.00 - 0.40 10/19/2015 [facility] CHEM PANEL eGFR 79 10/19/2015 Result Comment: The eGFR is calculated using the CKD-EPI formula. In most young, healthy individuals the eGFR will be >90 mL/min/1.73m2. The eGFR declines with age. An eGFR of 60-89 may be normal in some populations, particularly the elderly, for whom the CKD-EPI formula has not been extensively validated. Use of the eGFR is not recommended in the following populations:

Individuals with unstable creatinine concentrations, including patients and those with serious co-morbid conditions.

Patients with extremes in muscle mass or diet.

The data above are obtained from the National Kidney Disease Education Program (NKDEP) which additionally recommends that when the eGFR is used in patients with extremes of body mass index for purposes of drug dosing, the eGFR should be multiplied by the estimated BMI. [facility] CHEM PANEL B/C Ratio 18 6 - 25 10/19/2015 [facility] CHEM PANEL A/G Ratio 0.4 0.7 - 1.6 10/19/2015 [facility] CHEM PANEL ALT 30 0 - 65 10/19/2015 [facility] CHEM PANEL Alk Phos 116 39 - 136 10/19/2015 [facility] CHEM PANEL AST 21 0 - 37 10/19/2015 [facility] CHEM PANEL Globulin 6.0 2.0 - 4.0 10/19/2015 [facility] CHEM PANEL Bili Total 0.2 0.2 - 1.3 10/19/2015 [facility] CHEM PANEL Total Protein 8.1 6.4 - 8.4 10/19/2015 [facility] CHEM PANEL Albumin Lvl 2.1 3.5 - 5.0 10/19/2015 [facility] CHEM PANEL AGAP 8.8 10.0 - 20.0 10/19/2015 [facility] CHEM PANEL BUN 22 7 - 22 10/19/2015 [facility] CHEM PANEL Calcium Lvl 8.9 8.5 - 10.5 10/19/2015 [facility] CHEM PANEL Creatinine Lvl 1.22 0.50 - 1.40 10/19/2015 [facility] CHEM PANEL Potassium Lvl 4.8 3.5 - 5.1 10/19/2015 [facility] CHEM PANEL Chloride Lvl 106 95 - 109 10/19/2015 [facility] CHEM PANEL Sodium Lvl 137 135 - 145 10/19/2015 [facility] CHEM PANEL CO2 27 24 - 32 10/19/2015 [facility] CHEM PANEL Glucose Lvl 114 70 - 99 10/19/2015 [facility] CHEM PANEL Magnesium Lvl 1.3 1.8 - 2.4 10/19/2015 [facility] HEMATOLOGY INR 1.07 0.85 - 1.17 10/19/2015 [facility] HEMATOLOGY PT 14.2 12.0 - 14.7 10/19/2015 [facility] HEMATOLOGY PTT 36.0 22.9 - 35.8 10/19/2015 [facility] DRUG SCREEN U Amph Scr Nega tive *NA* (10/19/15 1:36 AM) Negative 10/19/2015 [facility] DRUG SCREEN UDS Note See Note (10/19/15 1:36 AM) 10/19/2015 [facility] DRUG SCREEN U Opiate Scr Posi tive *ABN* (10/19/15 1:36 AM) Negative 10/19/2015 [facility] DRUG SCREEN U Phencyc Scr Nega tive *NA* (10/19/15 1:36 AM) Negative 10/19/2015 [facility] DRUG SCREEN U Cocaine Scr Nega tive *NA* (10/19/15 1:36 AM) Negative 10/19/2015 [facility] DRUG SCREEN U Cannab Scr Posi tive *ABN* (10/19/15 1:36 AM) Negative 10/19/2015 [facility] DRUG SCREEN U Benzodia Scr Posi tive *ABN* (10/19/15 1:36 AM) Negative 10/19/2015 [facility] DRUG SCREEN U Chelsie Scr Nega tive *NA* (10/19/15 1:36 AM) Negative 10/19/2015 [facility] CHEM PANEL eGFR 62 10/18/2015 Result Comment: The eGFR is calculated using the CKD-EPI formula. In most young, healthy individuals the eGFR will be >90 mL/min/1.73m2. The eGFR declines with age. An eGFR of 60-89 may be normal in some populations, particularly the elderly, for whom the CKD-EPI formula has not been extensively validated. Use of the eGFR is not recommended in the following populations:

Individuals with unstable creatinine concentrations, including patients and those with serious co-morbid conditions.

Patients with extremes in muscle mass or diet.

The data above are obtained from the National Kidney Disease Education Program (NKDEP) which additionally recommends that when the eGFR is used in patients with extremes of body mass index for purposes of drug dosing, the eGFR should be multiplied by the estimated BMI. [facility] CHEM PANEL Chloride Lvl 108 95 - 109 10/18/2015 [facility] CHEM PANEL Potassium Lvl 4.8 3.5 - 5.1 10/18/2015 [facility] CHEM PANEL Sodium Lvl 138 135 - 145 10/18/2015 [facility] CHEM PANEL CO2 23 24 - 32 10/18/2015 [facility] CHEM PANEL Creatinine Lvl 1.50 0.50 - 1.40 10/18/2015 [facility] CHEM PANEL Calcium Lvl 8.9 8.5 - 10.5 10/18/2015 [facility] CHEM PANEL AGAP 11.8 10.0 - 20.0 10/18/2015 [facility] CHEM PANEL BUN 23 7 - 22 10/18/2015 [facility] CHEM PANEL Glucose Lvl 104 70 - 99 10/18/2015 [facility] CHEM PANEL eGFR 62 10/17/2015 Result Comment: The eGFR is calculated using the CKD-EPI formula. In most young, healthy individuals the eGFR will be >90 mL/min/1.73m2. The eGFR declines with age. An eGFR of 60-89 may be normal in some populations, particularly the elderly, for whom the CKD-EPI formula has not been extensively validated. Use of the eGFR is not recommended in the following populations:

Individuals with unstable creatinine concentrations, including patients and those with serious co-morbid conditions.

Patients with extremes in muscle mass or diet.

The data above are obtained from the National Kidney Disease Education Program (NKDEP) which additionally recommends that when the eGFR is used in patients with extremes of body mass index for purposes of drug dosing, the eGFR should be multiplied by the estimated BMI. [facility] CHEM PANEL Glucose Lvl 97 70 - 99 10/17/2015 [facility] CHEM PANEL CO2 21 24 - 32 10/17/2015 [facility] CHEM PANEL BUN 23 7 - 22 10/17/2015 [facility] CHEM PANEL Creatinine Lvl 1.50 0.50 - 1.40 10/17/2015 [facility] CHEM PANEL Potassium Lvl 5.0 3.5 - 5.1 10/17/2015 [facility] CHEM PANEL Sodium Lvl 138 135 - 145 10/17/2015 [facility] CHEM PANEL Chloride Lvl 108 95 - 109 10/17/2015 [facility] CHEM PANEL Calcium Lvl 8.4 8.5 - 10.5 10/17/2015 [facility] CHEM PANEL AGAP 14.0 10.0 - 20.0 10/17/2015 [facility] HEMATOLOGY MPV 8.0 7.4 - 10.4 10/17/2015 [facility] RDW 22.3 11.5 - 14.5 10/17/2015 [facility] Platelet 525 133 - 450 10/17/2015 [facility] Hgb 8.6 14.0 - 18.0 10/17/2015 [facility] WBC 9.8 3.7 - 10.4 10/17/2015 [facility] RBC 2.89 4.70 - 6.10 10/17/2015 [facility] Hct 26.3 42.0 - 54.0 10/17/2015 [facility] MCHC 32.7 32.0 - 36.0 10/17/2015 [facility] MCV 91.0 80.0 - 94.0 10/17/2015 [facility] MCH 29.8 27.0 - 31.0 10/17/2015 [facility] Segs-Bands # 6.6 1.5 - 8.1 10/17/2015 [facility] Monocytes # 0.8 0.0 - 0.8 10/17/2015 [facility] Lymphocytes # 2.0 1.0 - 5.5 10/17/2015 [facility] HEMATOLOGY Eosinophils # 0.2 0.0 - 0.5 10/17/2015 [facility] HEMATOLOGY Basophils # 0.1 0.0 - 0.2 10/17/2015 [facility] HEMATOLOGY Segs 67.4 45.0 - 75.0 10/17/2015 [facility] HEMATOLOGY Eosinophils 2.4 0.0 - 4.0 10/17/2015 [facility] HEMATOLOGY Lymphocytes 20.7 20.0 - 40.0 10/17/2015 [facility] HEMATOLOGY Monocytes 8.5 2.0 - 12.0 10/17/2015 [facility] HEMATOLOGY Basophils 1.0 0.0 - 1.0 10/17/2015 [facility] ELECTROLYTES AGAP 15.5 10.0 - 20.0 10/16/2015 [facility] ELECTROLYTES eGFR 67 10/16/2015 Result Comment: The eGFR is calculated using the CKD-EPI formula. In most young, healthy individuals the eGFR will be >90 mL/min/1.73m2. The eGFR declines with age. An eGFR of 60-89 may be normal in some populations, particularly the elderly, for whom the CKD-EPI formula has not been extensively validated. Use of the eGFR is not recommended in the following populations:

Individuals with unstable creatinine concentrations, including patients and those with serious co-morbid conditions.

Patients with extremes in muscle mass or diet.

The data above are obtained from the National Kidney Disease Education Program (NKDEP) which additionally recommends that when the eGFR is used in patients with extremes of body mass index for purposes of drug dosing, the eGFR should be multiplied by the estimated BMI. [facility] ELECTROLYTES Sodium Lvl 141 135 - 145 10/16/2015 [facility] ELECTROLYTES Potassium Lvl 4.5 3.5 - 5.1 10/16/2015 [facility] ELECTROLYTES Creatinine Lvl 1.4 0 0.50 - 1.40 10/16/2015 [facility] ELECTROLYTES Chloride Lvl 109 95 - 109 10/16/2015 [facility] ELECTROLYTES CO2 21 24 - 32 10/16/2015 [facility] ELECTROLYTES Calcium Lvl 8.3 8.5 - 10.5 10/16/2015 [facility] ELECTROLYTES BUN 22 7 - 22 10/16/2015 [facility] ELECTROLYTES Glucose Lvl 100 70 - 99 10/16/2015 [facility] Basophils # 0.1 0.0 - 0.2 10/16/2015 [facility] Eosinophils # 0.2 0.0 - 0.5 10/16/2015 [facility] HEMATOLOGY Monocytes # 0.7 0.0 - 0.8 10/16/2015 [facility] Lymphocytes # 1.5 1.0 - 5.5 10/16/2015 [facility] Segs-Bands # 7.3 1.5 - 8.1 10/16/2015 [facility] HEMATOLOGY Basophils 0.6 0.0 - 1.0 10/16/2015 [facility] HEMATOLOGY Eosinophils 1.6 0.0 - 4.0 10/16/2015 [facility] Monocytes 7.7 2.0 - 12.0 10/16/2015 [facility] Lymphocytes 15.3 20.0 - 40.0 10/16/2015 [facility] Segs 74.8 45.0 - 75.0 10/16/2015 [facility] RDW 22.4 11.5 - 14.5 10/16/2015 [facility] MPV 8.1 7.4 - 10.4 10/16/2015 [facility] Platelet 423 133 - 450 10/16/2015 [facility] MCHC 31.9 32.0 - 36.0 10/16/2015 [facility] MCH 29.3 27.0 - 31.0 10/16/2015 [facility] MCV 91.8 80.0 - 94.0 10/16/2015 [facility] Hct 26.2 42.0 - 54.0 10/16/2015 [facility] Hgb 8.4 14.0 - 18.0 10/16/2015 [facility] RBC 2.85 4.70 - 6.10 10/16/2015 [facility] WBC 9.7 3.7 - 10.4 10/16/2015 [facility] URINE AND STOOL UA Urobilinogen <=1.0 0.1 - 1.0 10/16/2015 [facility] URINE AND STOOL UA Turbidity Slight *ABN* (10/16/15 3:15 AM) Clear 10/16/2015 [facility] URINE AND STOOL UA Spec Grav 1.014 <=1.030 10/16/2015 [facility] URINE AND STOOL UA Color Yellow *NA* (10/16/15 3:15 AM) Yellow 10/16/2015 [facility] URINE AND STOOL UA RBC 4 0 - 2 10/16/2015 [facility] URINE AND STOOL UA Mucus Few /LPF None Seen /LPF 10/16/2015 [facility] URINE AND STOOL UA Bacteria Occasional /HPF None Seen /HPF 10/16/2015 [facility] URINE AND STOOL UA WBC 33 0 - 5 10/16/2015 [facility] URINE AND STOOL UA Sq Epi Occasional /LPF Few /LPF 10/16/2015 [facility] URINE AND STOOL UA Leuk Est Moderate *ABN* (10/16/15 3:15 AM) Negative 10/16/2015 [facility] URINE AND STOOL UA Nitrite Negative (10/16/15 3:15 AM) Negative 10/16/2015 [facility] URINE AND STOOL UA Blood Negative (10/16/15 3:15 AM) Negative 10/16/2015 [facility] URINE AND STOOL UA Ketones Negative mg/dL Negative mg/dL 10/16/2015 [facility] URINE AND STOOL UA Glucose Negative mg/dL Negative mg/dL 10/16/2015 [facility] URINE AND STOOL UA Protein 30 mg/dL Negative mg/dL 10/16/2015 [facility] URINE AND STOOL UA pH 7.0 5.0 - 8.0 10/16/2015 [facility] URINE AND STOOL UA Bili Negative *NA* (10/16/15 3:15 AM) Negative 10/16/2015 [facility] CHEM PANEL eGFR 57 10/15/2015 Result Comment: The eGFR is calculated using the CKD-EPI formula. In most young, healthy individuals the eGFR will be >90 mL/min/1.73m2. The eGFR declines with age. An eGFR of 60-89 may be normal in some populations, particularly the elderly, for whom the CKD-EPI formula has not been extensively validated. Use of the eGFR is not recommended in the following populations:

Individuals with unstable creatinine concentrations, including patients and those with serious co-morbid conditions.

Patients with extremes in muscle mass or diet.

The data above are obtained from the National Kidney Disease Education Program (NKDEP) which additionally recommends that when the eGFR is used in patients with extremes of body mass index for purposes of drug dosing, the eGFR should be multiplied by the estimated BMI. [facility] CHEM PANEL Potassium Lvl 4.5 3.5 - 5.1 10/15/2015 [facility] CHEM PANEL Sodium Lvl 138 135 - 145 10/15/2015 [facility] CHEM PANEL Creatinine Lvl 1.60 0.50 - 1.40 10/15/2015 [facility] CHEM PANEL BUN 24 7 - 22 10/15/2015 [facility] CHEM PANEL Glucose Lvl 113 70 - 99 10/15/2015 [facility] CHEM PANEL CO2 25 24 - 32 10/15/2015 [facility] CHEM PANEL Chloride Lvl 104 95 - 109 10/15/2015 [facility] CHEM PANEL Calcium Lvl 8.9 8.5 - 10.5 10/15/2015 [facility] CHEM PANEL AGAP 13.5 10.0 - 20.0 10/15/2015 [facility] HEMATOLOGY Segs 61.6 45.0 - 75.0 10/15/2015 [facility] Lymphocytes 24.3 20.0 - 40.0 10/15/2015 [facility] Monocytes 12.6 2.0 - 12.0 10/15/2015 [facility] RBC Morph Leeann l (10/15/15 3:40 AM) 10/15/2015 [facility] Plt Morph Leeann l (10/15/15 3:40 AM) 10/15/2015 [facility] Monocytes # 1.6 0.0 - 0.8 10/15/2015 [facility] Lymphocytes # 3.1 1.0 - 5.5 10/15/2015 [facility] HEMATOLOGY Eosinophils 1.3 0.0 - 4.0 10/15/2015 [facility] HEMATOLOGY Basophils 0.2 0.0 - 1.0 10/15/2015 [facility] Segs-Bands # 7.8 1.5 - 8.1 10/15/2015 [facility] Basophils # 0.0 0.0 - 0.2 10/15/2015 [facility] Eosinophils # 0.2 0.0 - 0.5 10/15/2015 [facility] Hgb 9.1 14.0 - 18.0 10/15/2015 [facility] MCV 89.6 80.0 - 94.0 10/15/2015 [facility] Hct 27.1 42.0 - 54.0 10/15/2015 [facility] MCHC 33.7 32.0 - 36.0 10/15/2015 [facility] MCH 30.1 27.0 - 31.0 10/15/2015 [facility] MPV 7.7 7.4 - 10.4 10/15/2015 [facility] Platelet 486 133 - 450 10/15/2015 [facility] RDW 21.3 11.5 - 14.5 10/15/2015 [facility] HEMATOLOGY RBC 3.03 4.70 - 6.10 10/15/2015 [facility] WBC 12.7 3.7 - 10.4 10/15/2015 [facility] CHEM PANEL eGFR 57 10/14/2015 Result Comment: The eGFR is calculated using the CKD-EPI formula. In most young, healthy individuals the eGFR will be >90 mL/min/1.73m2. The eGFR declines with age. An eGFR of 60-89 may be normal in some populations, particularly the elderly, for whom the CKD-EPI formula has not been extensively validated. Use of the eGFR is not recommended in the following populations:

Individuals with unstable creatinine concentrations, including patients and those with serious co-morbid conditions.

Patients with extremes in muscle mass or diet.

The data above are obtained from the National Kidney Disease Education Program (NKDEP) which additionally recommends that when the eGFR is used in patients with extremes of body mass index for purposes of drug dosing, the eGFR should be multiplied by the estimated BMI. [facility] CHEM PANEL Calcium Lvl 8.8 8.5 - 10.5 10/14/2015 [facility] CHEM PANEL CO2 19 24 - 32 10/14/2015 [facility] CHEM PANEL Chloride Lvl 109 95 - 109 10/14/2015 [facility] CHEM PANEL Sodium Lvl 140 135 - 145 10/14/2015 [facility] CHEM PANEL Potassium Lvl 4.9 3.5 - 5.1 10/14/2015 [facility] CHEM PANEL Creatinine Lvl 1.60 0.50 - 1.40 10/14/2015 [facility] CHEM PANEL BUN 20 7 - 22 10/14/2015 [facility] CHEM PANEL Glucose Lvl 146 70 - 99 10/14/2015 [facility] CHEM PANEL AGAP 16.9 10.0 - 20.0 10/14/2015 [facility] Platelet 405 133 - 450 10/14/2015 [facility] MPV 7.7 7.4 - 10.4 10/14/2015 [facility] MCHC 32.9 32.0 - 36.0 10/14/2015 [facility] WBC 8.2 3.7 - 10.4 10/14/2015 [facility] MCH 29.6 27.0 - 31.0 10/14/2015 [facility] RDW 19.9 11.5 - 14.5 10/14/2015 [facility] Hct 27.0 42.0 - 54.0 10/14/2015 [facility] MCV 90.1 80.0 - 94.0 10/14/2015 [facility] RBC 3.00 4.70 - 6.10 10/14/2015 [facility] Hgb 8.9 14.0 - 18.0 10/14/2015 [facility] Monocytes 8.7 2.0 - 12.0 10/14/2015 [facility] Segs 84.6 45.0 - 75.0 10/14/2015 [facility] Lymphocytes 6.0 20.0 - 40.0 10/14/2015 [facility] Eosinophils 0.4 0.0 - 4.0 10/14/2015 [facility] Monocytes # 0.7 0.0 - 0.8 10/14/2015 [facility] Basophils 0.3 0.0 - 1.0 10/14/2015 [facility] Segs-Bands # 6.9 1.5 - 8.1 10/14/2015 [facility] Lymphocytes # 0.5 1.0 - 5.5 10/14/2015 [facility] Eosinophils # 0.3 0.0 - 0.5 10/12/2015 [facility] TOXICOLOGY Amikacin Lvl 6.0 10/12/2015 [facility] INR 1.21 0.85 - 1.17 10/11/2015 [facility] PT 15.6 12.0 - 14.7 10/11/2015 [facility] PTT 45.8 22.9 - 35.8 10/11/2015 [facility] PTT 42.6 22.9 - 35.8 10/10/2015 [facility] INR 1.18 0.85 - 1.17 10/10/2015 [facility] PT 15.3 12.0 - 14.7 10/10/2015 [facility] BLOOD BANK RESULTS RBC product Product available (10/10/15 9:41 AM) 10/10/2015 [facility] BLOOD BANK RESULTS RBC product Product available (10/10/15 9:13 AM) 10/10/2015 [facility] Polychrom Moder ate *ABN* (10/10/15 6:17 AM) None Seen 10/10/2015 [facility] Plt Morph Leeann l (10/10/15 6:17 AM) 10/10/2015 [facility] HEMATOLOGY Toxic Gran Moder ate *ABN* (10/10/15 6:17 AM) None Seen 10/10/2015 [facility] BLOOD BANK RESULTS Antibody Scrn Negative (10/09/15 10:26 AM) 10/09/2015 [facility] BLOOD BANK RESULTS ABO/Rh A POS 10/09/2015 [facility] HEMATOLOGY Basophils # 0.0 0.0 - 0.2 10/09/2015 [facility] Anisocyte 1+ *ABN* (10/08/15 1:01 PM) None Seen 10/08/2015 [facility] BLOOD BANK RESULTS TRXN Path Interp The transfusion reaction form and EMR have been reviewed. The patient experienced altered mental status while receiving PRBC. Vital sgns did not change significantly. This does not correspond to a typical form of transfusion reaction and therefore it is likely that the altered mental status is unrelated to the transfusion. Clinical correlation is required. There is no evidence o fa hemolytic transfusion reaction. 10/07/2015 [facility] BLOOD [facility] RESULTS Hemolysis Ck None (10/07/15 4:44 PM) 10/07/2015 [facility] BLOOD [facility] RESULTS RBC product Product available (10/07/15 10:49 AM) 10/07/2015 [facility] Toxic Gran Moder ate *ABN* (10/07/15 9:18 AM) None Seen 10/07/2015 [facility] Polychrom Moder ate *ABN* (10/07/15 9:18 AM) None Seen 10/07/2015 [facility] Anisocyte 1+ *ABN* (10/07/15 9:18 AM) None Seen 10/07/2015 [facility] HEMATOLOGY Plt Morph Leeann l (10/07/15 9:18 AM) 10/07/2015 [facility] Anisocyte 1+ *ABN* (10/06/15 10:44 AM) None Seen 10/06/2015 [facility] BLOOD BANK RESULTS ABO/Rh A POS 10/05/2015 [facility] BLOOD BANK RESULTS Antibody Scrn Negative (10/05/15 2:43 PM) 10/05/2015 [facility] DRUG SCREEN U Benzodia Scr Posi tive *ABN* (10/05/15 1:00 PM) Negative 10/05/2015 [facility] DRUG SCREEN U Cannab Scr Nega tive *NA* (10/05/15 1:00 PM) Negative 10/05/2015 [facility] DRUG SCREEN U Cocaine Scr Nega tive *NA* (10/05/15 1:00 PM) Negative 10/05/2015 [facility] DRUG SCREEN U Opiate Scr Posi tive *ABN* (10/05/15 1:00 PM) Negative 10/05/2015 [facility] DRUG SCREEN U Phencyc Scr Nega tive *NA* (10/05/15 1:00 PM) Negative 10/05/2015 [facility] DRUG SCREEN U Methadone Scr Nega tive *NA* (10/05/15 1:00 PM) Negative 10/05/2015 [facility] DRUG SCREEN U Propoxyph Scr Nega tive *NA* (10/05/15 1:00 PM) Negative 10/05/2015 [facility] DRUG SCREEN UDS Note See Note (10/05/15 1:00 PM) 10/05/2015 [facility] DRUG SCREEN U Amph Scr Nega tive *NA* (10/05/15 1:00 PM) Negative 10/05/2015 [facility] DRUG SCREEN U Chelsie Scr Nega tive *NA* (10/05/15 1:00 PM) Negative 10/05/2015 [facility] ANEMIA STUDY TIBC 234 228 - 428 10/02/2015 [facility] ANEMIA STUDY UIBC 161 110 - 370 10/02/2015 [facility] ANEMIA STUDY % Satur Fe 31 12 - 57 10/02/2015 [facility] ANEMIA STUDY [place] 73 45 - 160 10/02/2015 [facility] ANEMIA STUDY Ferritin Lvl 806 22 - 275 10/02/2015 [facility] BLOOD BANK RESULTS ABO/Rh A POS 09/30/2015 [facility] BLOOD BANK RESULTS Antibody Scrn Negative (09/30/15 11:58 AM) 09/30/2015 [facility] CHEM PANEL Phosphorus 2.8 2.5 - 4.5 09/30/2015 [facility] CHEM PANEL Magnesium Lvl 1.9 1.8 - 2.4 09/30/2015 [facility] HEMATOLOGY RBC Morph Leeann l (09/26/15 5:35 AM) 09/26/2015 [facility] MOLECULAR DIAGNOSTIC C difficile DNA Negative (09/25/15 5:28 PM) Negative 09/25/2015 [facility] URINE AND STOOL UA Sq Epi None Seen 09/25/2015 [facility] URINE AND STOOL UA Urobilinogen <=1.0 0.1 - 1.0 09/25/2015 [facility] URINE AND STOOL UA Spec Grav 1.015 <=1.030 09/25/2015 [facility] URINE AND STOOL UA pH 7.0 5.0 - 8.0 09/25/2015 [facility] URINE AND STOOL UA Glucose Negative mg/dL Negative mg/dL 09/25/2015 [facility] URINE AND STOOL UA Protein 30 mg/dL Negative mg/dL 09/25/2015 [facility] URINE AND STOOL UA Ketones Negative mg/dL Negative mg/dL 09/25/2015 [facility] URINE AND STOOL UA Bili Negative *NA* (09/25/15 5:28 PM) Negative 09/25/2015 [facility] URINE AND STOOL UA Blood Negative (09/25/15 5:28 PM) Negative 09/25/2015 [facility] URINE AND STOOL UA Nitrite Negative (09/25/15 5:28 PM) Negative 09/25/2015 [facility] URINE AND STOOL UA Leuk Est Moderate *ABN* (09/25/15 5:28 PM) Negative 09/25/2015 [facility] URINE AND STOOL UA WBC 16 0 - 5 09/25/2015 [facility] URINE AND STOOL UA RBC 5 0 - 2 09/25/2015 [facility] URINE AND STOOL UA Mucus Few /LPF None Seen /LPF 09/25/2015 [facility] URINE AND STOOL UA Hyal Cast 1 0 - 2 09/25/2015 [facility] URINE AND STOOL UA Clay Yeast Occasional /HPF None Seen /HPF 09/25/2015 [facility] URINE AND STOOL UA Color Yellow *NA* (09/25/15 5:28 PM) Yellow 09/25/2015 [facility] URINE AND STOOL UA Turbidity Slight *ABN* (09/25/15 5:28 PM) Clear 09/25/2015 [facility] CHEM PANEL Lactic Acid Lvl 2.0 0.5 - 2.2 09/25/2015 [facility] CHEM PANEL Procalcitonin Lvl 0.40 0.00 - 0.10 09/25/2015 [facility] DRUG SCREEN U Methadone Scr Nega tive *NA* (09/23/15 10:57 AM) Negative 09/23/2015 [facility] DRUG SCREEN U Phencyc Scr Nega tive *NA* (09/23/15 10:57 AM) Negative 09/23/2015 [facility] DRUG SCREEN U Opiate Scr Posi tive *ABN* (09/23/15 10:57 AM) Negative 09/23/2015 [facility] DRUG SCREEN U Cannab Scr Posi tive *ABN* (09/23/15 10:57 AM) Negative 09/23/2015 [facility] DRUG SCREEN U Propoxyph Scr Nega tive *NA* (09/23/15 10:57 AM) Negative 09/23/2015 [facility] DRUG SCREEN UDS Note See Note (09/23/15 10:57 AM) 09/23/2015 [facility] DRUG SCREEN U Cocaine Scr Nega tive *NA* (09/23/15 10:57 AM) Negative 09/23/2015 [facility] DRUG SCREEN U Benzodia Scr Posi tive *ABN* (09/23/15 10:57 AM) Negative 09/23/2015 [facility] DRUG SCREEN U Chelsie Scr Nega tive *NA* (09/23/15 10:57 AM) Negative 09/23/2015 [facility] DRUG SCREEN U Amph Scr Nega tive *NA* (09/23/15 10:57 AM) Negative 09/23/2015 [facility] HEMATOLOGY Sed Rate 73 0 - 15 09/22/2015 [facility] CHEM PANEL Bili Total 0.3 0.2 - 1.3 09/19/2015 [facility] CHEM PANEL ALT 25 0 - 65 09/19/2015 [facility] CHEM PANEL AST 14 0 - 37 09/19/2015 [facility] CHEM PANEL Alk Phos 118 39 - 136 09/19/2015 [facility] CHEM PANEL Total Protein 7.8 6.4 - 8.4 09/19/2015 [facility] CHEM PANEL Albumin Lvl 2.2 3.5 - 5.0 09/19/2015 [facility] CHEM PANEL A/G Ratio 0.4 0.7 - 1.6 09/19/2015 [facility] CHEM PANEL B/C Ratio 28 6 - 25 09/19/2015 [facility] CHEM PANEL Globulin 5.6 2.0 - 4.0 09/19/2015 [facility] HEMATOLOGY Sed Rate >100 mm/hr 0 - 15 09/19/2015 [facility] HEMATOLOGY Hypochrom 1+ (09/16/15 6:20 AM) None Seen 09/16/2015 [facility] HEMATOLOGY Polychrom Moder ate *ABN* (09/16/15 6:20 AM) None Seen 09/16/2015 [facility] HEMATOLOGY Sed Rate 74 0 - 15 09/15/2015 [facility] IMMUNOLOGY CRP, High Sensitivity 32. 3 09/15/2015 [facility] RBC Morph Leeann l (09/13/15 3:51 AM) 09/13/2015 [facility] MPV 7.5 7.4 - 10.4 09/09/2015 [facility] MCV 84.7 80.0 - 94.0 09/09/2015 [facility] Hct 28.7 42.0 - 54.0 09/09/2015 [facility] MCHC 32.8 32.0 - 36.0 09/09/2015 [facility] MCH 27.8 27.0 - 31.0 09/09/2015 [facility] RDW 19.7 11.5 - 14.5 09/09/2015 [facility] Platelet 381 133 - 450 09/09/2015 [facility] Hgb 9.4 14.0 - 18.0 09/09/2015 [facility] RBC 3.39 4.70 - 6.10 09/09/2015 [facility] WBC 7.8 3.7 - 10.4 09/09/2015 [facility] Eosinophils # 0.4 0.0 - 0.5 09/09/2015 [facility] Monocytes # 1.0 0.0 - 0.8 09/09/2015 [facility] Lymphocytes # 3.1 1.0 - 5.5 09/09/2015 [facility] Basophils 0.6 0.0 - 1.0 09/09/2015 [facility] Segs-Bands # 3.3 1.5 - 8.1 09/09/2015 [facility] Basophils # 0.0 0.0 - 0.2 09/09/2015 [facility] Segs 42.5 45.0 - 75.0 09/09/2015 [facility] Eosinophils 5.2 0.0 - 4.0 09/09/2015 [facility] Lymphocytes 39.4 20.0 - 40.0 09/09/2015 [facility] Monocytes 12.3 2.0 - 12.0 09/09/2015 [facility] ELECTROLYTES AGAP 15.1 10.0 - 20.0 09/08/2015 [facility] ELECTROLYTES eGFR 101 09/08/2015 Result Comment: The eGFR is calculated using the CKD-EPI formula. In most young, healthy individuals the eGFR will be >90 mL/min/1.73m2. The eGFR declines with age. An eGFR of 60-89 may be normal in some populations, particularly the elderly, for whom the CKD-EPI formula has not been extensively validated. Use of the eGFR is not recommended in the following populations:

Individuals with unstable creatinine concentrations, including patients and those with serious co-morbid conditions.

Patients with extremes in muscle mass or diet.

The data above are obtained from the National Kidney Disease Education Program (NKDEP) which additionally recommends that when the eGFR is used in patients with extremes of body mass index for purposes of drug dosing, the eGFR should be multiplied by the estimated BMI. [facility] ELECTROLYTES BUN 16 7 - 22 09/08/2015 [facility] ELECTROLYTES Glucose Lvl 89 70 - 99 09/08/2015 [facility] ELECTROLYTES Potassium Lvl 4.1 3.5 - 5.1 09/08/2015 [facility] ELECTROLYTES Sodium Lvl 137 135 - 145 09/08/2015 [facility] ELECTROLYTES Creatinine Lvl 1.0 0 0.50 - 1.40 09/08/2015 [facility] ELECTROLYTES Calcium Lvl 8.9 8.5 - 10.5 09/08/2015 [facility] ELECTROLYTES CO2 24 24 - 32 09/08/2015 [facility] ELECTROLYTES Chloride Lvl 102 95 - 109 09/08/2015 [facility] Monocytes # 1.1 0.0 - 0.8 09/08/2015 [facility] HEMATOLOGY Eosinophils # 0.4 0.0 - 0.5 09/08/2015 [facility] Lymphocytes # 3.0 1.0 - 5.5 09/08/2015 [facility] Segs-Bands # 3.7 1.5 - 8.1 09/08/2015 [facility] HEMATOLOGY Basophils 0.6 0.0 - 1.0 09/08/2015 [facility] HEMATOLOGY Eosinophils 5.3 0.0 - 4.0 09/08/2015 [facility] Lymphocytes 36.3 20.0 - 40.0 09/08/2015 [facility] Monocytes 13.4 2.0 - 12.0 09/08/2015 [facility] Plt Morph Leeann l (09/08/15 4:27 AM) 09/08/2015 [facility] RBC Morph Leeann l (09/08/15 4:27 AM) 09/08/2015 [facility] Segs 44.4 45.0 - 75.0 09/08/2015 [facility] HEMATOLOGY MPV 7.8 7.4 - 10.4 09/08/2015 [facility] HEMATOLOGY Platelet 285 133 - 450 09/08/2015 [facility] HEMATOLOGY MCH 28.3 27.0 - 31.0 09/08/2015 [facility] HEMATOLOGY MCV 85.9 80.0 - 94.0 09/08/2015 [facility] HEMATOLOGY RBC 2.86 4.70 - 6.10 09/08/2015 [facility] HEMATOLOGY Hct 24.6 42.0 - 54.0 09/08/2015 [facility] HEMATOLOGY MCHC 32.9 32.0 - 36.0 09/08/2015 [facility] HEMATOLOGY RDW 18.4 11.5 - 14.5 09/08/2015 [facility] HEMATOLOGY WBC 8.4 3.7 - 10.4 09/08/2015 [facility] HEMATOLOGY Hgb 8.1 14.0 - 18.0 09/08/2015 [facility] DRUG SCREEN UDS Note See Note (09/08/15 12:53 AM) 09/08/2015 [facility] DRUG SCREEN U Cannab Scr Posi tive *ABN* (09/08/15 12:53 AM) Negative 09/08/2015 [facility] DRUG SCREEN U Cocaine Scr Nega tive *NA* (09/08/15 12:53 AM) Negative 09/08/2015 [facility] DRUG SCREEN U Benzodia Scr Posi tive *ABN* (09/08/15 12:53 AM) Negative 09/08/2015 [facility] DRUG SCREEN U Phencyc Scr Nega tive *NA* (09/08/15 12:53 AM) Negative 09/08/2015 [facility] DRUG SCREEN U Opiate Scr Posi tive *ABN* (09/08/15 12:53 AM) Negative 09/08/2015 [facility] DRUG SCREEN U Chelsie Scr Nega tive *NA* (09/08/15 12:53 AM) Negative 09/08/2015 [facility] DRUG SCREEN U Amph Scr Nega tive *NA* (09/08/15 12:53 AM) Negative 09/08/2015 [facility] CARDIAC ENZYMES CK MB Index 0.9 0.0 - 2.5 09/07/2015 [facility] CARDIAC ENZYMES Total CK 185 12 - 191 09/07/2015 [facility] CARDIAC ENZYMES CK MB 1.6 0.5 - 3.6 09/07/2015 [facility] CARDIAC ENZYMES Troponin-I 0.03 0.00 - 0.40 09/07/2015 [facility] CHEM PANEL Procalcitonin Lvl 0.19 0.00 - 0.10 09/07/2015 [facility] CHEM PANEL Lactic Acid Lvl 2.6 0.5 - 2.2 09/07/2015 [facility] CHEM PANEL Bili Total 0.3 0.2 - 1.3 09/07/2015 [facility] CHEM PANEL Alk Phos 145 39 - 136 09/07/2015 [facility] CHEM PANEL B/C Ratio 23 6 - 25 09/07/2015 [facility] CHEM PANEL AGAP 11.4 10.0 - 20.0 09/07/2015 [facility] CHEM PANEL AST 28 0 - 37 09/07/2015 [facility] CHEM PANEL Globulin 7.0 2.0 - 4.0 09/07/2015 [facility] CHEM PANEL A/G Ratio 0.4 0.7 - 1.6 09/07/2015 [facility] CHEM PANEL eGFR 85 09/07/2015 Result Comment: The eGFR is calculated using the CKD-EPI formula. In most young, healthy individuals the eGFR will be >90 mL/min/1.73m2. The eGFR declines with age. An eGFR of 60-89 may be normal in some populations, particularly the elderly, for whom the CKD-EPI formula has not been extensively validated. Use of the eGFR is not recommended in the following populations:

Individuals with unstable creatinine concentrations, including patients and those with serious co-morbid conditions.

Patients with extremes in muscle mass or diet.

The data above are obtained from the National Kidney Disease Education Program (NKDEP) which additionally recommends that when the eGFR is used in patients with extremes of body mass index for purposes of drug dosing, the eGFR should be multiplied by the estimated BMI. [facility] CHEM PANEL Total Protein 9.7 6.4 - 8.4 09/07/2015 [facility] CHEM PANEL ALT 40 0 - 65 09/07/2015 [facility] CHEM PANEL Albumin Lvl 2.7 3.5 - 5.0 09/07/2015 [facility] CHEM PANEL BUN 27 7 - 22 09/07/2015 [facility] CHEM PANEL Glucose Lvl 86 70 - 99 09/07/2015 [facility] CHEM PANEL CO2 26 24 - 32 09/07/2015 [facility] CHEM PANEL Calcium Lvl 8.5 8.5 - 10.5 09/07/2015 [facility] CHEM PANEL Sodium Lvl 134 135 - 145 09/07/2015 [facility] CHEM PANEL Creatinine Lvl 1.15 0.50 - 1.40 09/07/2015 [facility] CHEM PANEL Chloride Lvl 101 95 - 109 09/07/2015 [facility] CHEM PANEL Potassium Lvl 4.4 3.5 - 5.1 09/07/2015 [facility] Lymphocytes # 2.4 1.0 - 5.5 09/07/2015 [facility] HEMATOLOGY Eosinophils 0.4 0.0 - 4.0 09/07/2015 [facility] HEMATOLOGY Basophils 0.8 0.0 - 1.0 09/07/2015 [facility] HEMATOLOGY Segs 64.7 45.0 - 75.0 09/07/2015 [facility] Lymphocytes 22.5 20.0 - 40.0 09/07/2015 [facility] Monocytes 11.6 2.0 - 12.0 09/07/2015 [facility] Segs-Bands # 6.8 1.5 - 8.1 09/07/2015 [facility] Basophils # 0.1 0.0 - 0.2 09/07/2015 [facility] Monocytes # 1.2 0.0 - 0.8 09/07/2015 [facility] Eosinophils # 0.0 0.0 - 0.5 09/07/2015 [facility] PTT 35.6 22.9 - 35.8 09/07/2015 [facility] Hct 29.0 42.0 - 54.0 09/07/2015 [facility] Hgb 9.6 14.0 - 18.0 09/07/2015 [facility] RBC 3.47 4.70 - 6.10 09/07/2015 [facility] WBC 10.5 3.7 - 10.4 09/07/2015 [facility] MCH 27.7 27.0 - 31.0 09/07/2015 [facility] MCV 83.5 80.0 - 94.0 09/07/2015 [facility] RDW 18.2 11.5 - 14.5 09/07/2015 [facility] MCHC 33.2 32.0 - 36.0 09/07/2015 [facility] Platelet 335 133 - 450 09/07/2015 [facility] MPV 7.5 7.4 - 10.4 09/07/2015 [facility] PT 14.9 12.0 - 14.7 09/07/2015 [facility] HEMATOLOGY INR 1.14 0.85 - 1.17 09/07/2015 [facility] URINE AND STOOL UA Mucus None Seen (09/07/15 12:25 AM) None Seen 09/07/2015 [facility] URINE AND STOOL UA Bacteria Few /HPF None Seen /HPF 09/07/2015 [facility] URINE AND STOOL UA RBC Packed *ABN* (09/07/15 12:25 AM) 0 - 2 09/07/2015 [facility] URINE AND STOOL UA WBC 3-5 /HPF None Seen /HPF 09/07/2015 [facility] URINE AND STOOL UA Sq Epi None Seen (09/07/15 12:25 AM) Few 09/07/2015 [facility] URINE AND STOOL UA Blood Large *ABN* (09/07/15 12:25 AM) Negative 09/07/2015 [facility] URINE AND STOOL UA Nitrite Positive *ABN* (09/07/15 12:25 AM) Negative 09/07/2015 [facility] URINE AND STOOL UA Urobilinogen 0.2 0.1 - 1.0 09/07/2015 [facility] URINE AND STOOL UA Ketones Negative *NA* (09/07/15 12:25 AM) Negative 09/07/2015 [facility] URINE AND STOOL UA Bili Negative *NA* (09/07/15 12:25 AM) Negative 09/07/2015 [facility] URINE AND STOOL UA Glucose Negative (09/07/15 12:25 AM) Negative 09/07/2015 [facility] URINE AND STOOL UA pH 6.0 5.0 - 8.0 09/07/2015 [facility] URINE AND STOOL UA Protein 100 mg/dL Negative mg/dL 09/07/2015 [facility] URINE AND STOOL UA Leuk Est Moderate *ABN* (09/07/15 12:25 AM) Negative 09/07/2015 [facility] URINE AND STOOL UA Turbidity Cloudy *ABN* (09/07/15 12:25 AM) Clear 09/07/2015 [facility] URINE AND STOOL UA Spec Grav 1.010 <=1.030 09/07/2015 [facility] URINE AND STOOL UA Color Red *ABN* (09/07/15 12:25 AM) Yellow 09/07/2015 [facility] CHEM PANEL eGFR 101 09/02/2015 Result Comment: The eGFR is calculated using the CKD-EPI formula. In most young, healthy individuals the eGFR will be >90 mL/min/1.73m2. The eGFR declines with age. An eGFR of 60-89 may be normal in some populations, particularly the elderly, for whom the CKD-EPI formula has not been extensively validated. Use of the eGFR is not recommended in the following populations:

Individuals with unstable creatinine concentrations, including patients and those with serious co-morbid conditions.

Patients with extremes in muscle mass or diet.

The data above are obtained from the National Kidney Disease Education Program (NKDEP) which additionally recommends that when the eGFR is used in patients with extremes of body mass index for purposes of drug dosing, the eGFR should be multiplied by the estimated BMI. [facility] CHEM PANEL Potassium Lvl 4.3 3.5 - 5.1 09/02/2015 [facility] CHEM PANEL Sodium Lvl 139 135 - 145 09/02/2015 [facility] CHEM PANEL Creatinine Lvl 1.00 0.50 - 1.40 09/02/2015 [facility] CHEM PANEL CO2 27 24 - 32 09/02/2015 [facility] CHEM PANEL Chloride Lvl 106 95 - 109 09/02/2015 [facility] CHEM PANEL Calcium Lvl 9.3 8.5 - 10.5 09/02/2015 [facility] CHEM PANEL BUN 18 7 - 22 09/02/2015 [facility] CHEM PANEL Glucose Lvl 70 70 - 99 09/02/2015 [facility] CHEM PANEL AGAP 10.3 10.0 - 20.0 09/02/2015 [facility] HEMATOLOGY Hgb 8.2 14.0 - 18.0 09/02/2015 [facility] HEMATOLOGY RBC 3.03 4.70 - 6.10 09/02/2015 [facility] HEMATOLOGY Hct 25.6 42.0 - 54.0 09/02/2015 [facility] MCH 27.0 27.0 - 31.0 09/02/2015 [facility] HEMATOLOGY MCV 84.4 80.0 - 94.0 09/02/2015 [facility] Platelet 191 133 - 450 09/02/2015 [facility] RDW 17.7 11.5 - 14.5 09/02/2015 [facility] MCHC 32.0 32.0 - 36.0 09/02/2015 [facility] MPV 7.8 7.4 - 10.4 09/02/2015 [facility] WBC 5.4 3.7 - 10.4 09/02/2015 [facility] HEMATOLOGY Lymphocytes # 2.5 1.0 - 5.5 09/02/2015 [facility] HEMATOLOGY Segs-Bands # 1.8 1.5 - 8.1 09/02/2015 [facility] HEMATOLOGY Monocytes # 0.7 0.0 - 0.8 09/02/2015 [facility] HEMATOLOGY Basophils 0.8 0.0 - 1.0 09/02/2015 [facility] HEMATOLOGY Eosinophils # 0.4 0.0 - 0.5 09/02/2015 [facility] HEMATOLOGY Segs 32.8 45.0 - 75.0 09/02/2015 [facility] Lymphocytes 46.4 20.0 - 40.0 09/02/2015 [facility] HEMATOLOGY Eosinophils 6.6 0.0 - 4.0 09/02/2015 [facility] Monocytes 13.4 2.0 - 12.0 09/02/2015 [facility] CHEM PANEL eGFR 101 08/29/2015 Result Comment: The eGFR is calculated using the CKD-EPI formula. In most young, healthy individuals the eGFR will be >90 mL/min/1.73m2. The eGFR declines with age. An eGFR of 60-89 may be normal in some populations, particularly the elderly, for whom the CKD-EPI formula has not been extensively validated. Use of the eGFR is not recommended in the following populations:

Individuals with unstable creatinine concentrations, including patients and those with serious co-morbid conditions.

Patients with extremes in muscle mass or diet.

The data above are obtained from the National Kidney Disease Education Program (NKDEP) which additionally recommends that when the eGFR is used in patients with extremes of body mass index for purposes of drug dosing, the eGFR should be multiplied by the estimated BMI. [facility] CHEM PANEL CO2 27 24 - 32 08/29/2015 [facility] CHEM PANEL Chloride Lvl 106 95 - 109 08/29/2015 [facility] CHEM PANEL Calcium Lvl 8.4 8.5 - 10.5 08/29/2015 [facility] CHEM PANEL BUN 19 7 - 22 08/29/2015 [facility] CHEM PANEL Sodium Lvl 143 135 - 145 08/29/2015 [facility] CHEM PANEL Creatinine Lvl 1.00 0.50 - 1.40 08/29/2015 [facility] CHEM PANEL Potassium Lvl 4.3 3.5 - 5.1 08/29/2015 [facility] CHEM PANEL Glucose Lvl 86 70 - 99 08/29/2015 [facility] CHEM PANEL AGAP 14.3 10.0 - 20.0 08/29/2015 [facility] HEMATOLOGY Eosinophils 2.1 0.0 - 4.0 08/29/2015 [facility] HEMATOLOGY Monocytes 15.0 2.0 - 12.0 08/29/2015 [facility] HEMATOLOGY Segs 40.2 45.0 - 75.0 08/29/2015 [facility] HEMATOLOGY Lymphocytes 41.9 20.0 - 40.0 08/29/2015 [facility] HEMATOLOGY Basophils # 0.0 0.0 - 0.2 08/29/2015 [facility] HEMATOLOGY Eosinophils # 0.1 0.0 - 0.5 08/29/2015 [facility] HEMATOLOGY Monocytes # 0.9 0.0 - 0.8 08/29/2015 [facility] Lymphocytes # 2.5 1.0 - 5.5 08/29/2015 [facility] HEMATOLOGY Segs-Bands # 2.4 1.5 - 8.1 08/29/2015 [facility] HEMATOLOGY Basophils 0.8 0.0 - 1.0 08/29/2015 [facility] MCH 27.3 27.0 - 31.0 08/29/2015 [facility] MCV 85.3 80.0 - 94.0 08/29/2015 [facility] Hct 26.3 42.0 - 54.0 08/29/2015 [facility] Hgb 8.4 14.0 - 18.0 08/29/2015 [facility] WBC 5.9 3.7 - 10.4 08/29/2015 [facility] RBC 3.09 4.70 - 6.10 08/29/2015 [facility] HEMATOLOGY RDW 18.1 11.5 - 14.5 08/29/2015 [facility] MCHC 32.0 32.0 - 36.0 08/29/2015 [facility] HEMATOLOGY Platelet 249 133 - 450 08/29/2015 [facility] HEMATOLOGY MPV 7.3 7.4 - 10.4 08/29/2015 [facility] DRUG SCREEN UDS Note See Note (08/26/15 5:08 AM) 08/26/2015 [facility] DRUG SCREEN U Amph Scr Nega tive *NA* (08/26/15 5:08 AM) Negative 08/26/2015 [facility] DRUG SCREEN U Cannab Scr Posi tive *ABN* (08/26/15 5:08 AM) Negative 08/26/2015 [facility] DRUG SCREEN U Cocaine Scr Nega tive *NA* (08/26/15 5:08 AM) Negative 08/26/2015 [facility] DRUG SCREEN U Opiate Scr Nega tive *NA* (08/26/15 5:08 AM) Negative 08/26/2015 [facility] DRUG SCREEN U Phencyc Scr Nega tive *NA* (08/26/15 5:08 AM) Negative 08/26/2015 [facility] DRUG SCREEN U Benzodia Scr Posi tive *ABN* (08/26/15 5:08 AM) Negative 08/26/2015 [facility] DRUG SCREEN U Chelsie Scr Nega tive *NA* (08/26/15 5:08 AM) Negative 08/26/2015 [facility] ELECTROLYTES AGAP 13.3 10.0 - 20.0 08/25/2015 [facility] ELECTROLYTES eGFR 114 08/25/2015 Result Comment: The eGFR is calculated using the CKD-EPI formula. In most young, healthy individuals the eGFR will be >90 mL/min/1.73m2. The eGFR declines with age. An eGFR of 60-89 may be normal in some populations, particularly the elderly, for whom the CKD-EPI formula has not been extensively validated. Use of the eGFR is not recommended in the following populations:

Individuals with unstable creatinine concentrations, including patients and those with serious co-morbid conditions.

Patients with extremes in muscle mass or diet.

The data above are obtained from the National Kidney Disease Education Program (NKDEP) which additionally recommends that when the eGFR is used in patients with extremes of body mass index for purposes of drug dosing, the eGFR should be multiplied by the estimated BMI. [facility] ELECTROLYTES Calcium Lvl 9.4 8.5 - 10.5 08/25/2015 [facility] ELECTROLYTES Chloride Lvl 105 95 - 109 08/25/2015 [facility] ELECTROLYTES CO2 27 24 - 32 08/25/2015 [facility] ELECTROLYTES Potassium Lvl 4.3 3.5 - 5.1 08/25/2015 [facility] ELECTROLYTES Glucose Lvl 66 70 - 99 08/25/2015 [facility] ELECTROLYTES BUN 15 7 - 22 08/25/2015 [facility] ELECTROLYTES Creatinine Lvl 0.9 0 0.50 - 1.40 08/25/2015 [facility] ELECTROLYTES Sodium Lvl 141 135 - 145 08/25/2015 [facility] HEMATOLOGY Eosinophils 2.1 0.0 - 4.0 08/25/2015 [facility] HEMATOLOGY Basophils 1.4 0.0 - 1.0 08/25/2015 [facility] Segs-Bands # 3.5 1.5 - 8.1 08/25/2015 [facility] Lymphocytes # 2.2 1.0 - 5.5 08/25/2015 [facility] HEMATOLOGY Segs 56.3 45.0 - 75.0 08/25/2015 [facility] HEMATOLOGY Monocytes 5.1 2.0 - 12.0 08/25/2015 [facility] HEMATOLOGY Lymphocytes 35.1 20.0 - 40.0 08/25/2015 [facility] Monocytes # 0.3 0.0 - 0.8 08/25/2015 [facility] HEMATOLOGY Eosinophils # 0.1 0.0 - 0.5 08/25/2015 [facility] HEMATOLOGY Basophils # 0.1 0.0 - 0.2 08/25/2015 [facility] HEMATOLOGY Platelet 325 133 - 450 08/25/2015 [facility] HEMATOLOGY RDW 17.9 11.5 - 14.5 08/25/2015 [facility] MPV 7.7 7.4 - 10.4 08/25/2015 [facility] MCHC 32.0 32.0 - 36.0 08/25/2015 [facility] MCH 27.3 27.0 - 31.0 08/25/2015 [facility] MCV 85.2 80.0 - 94.0 08/25/2015 [facility] RBC 2.97 4.70 - 6.10 08/25/2015 [facility] WBC 6.2 3.7 - 10.4 08/25/2015 [facility] Hgb 8.1 14.0 - 18.0 08/25/2015 [facility] Hct 25.3 42.0 - 54.0 08/25/2015 [facility] CHEM PANEL Phosphorus 3.1 2.5 - 4.5 08/23/2015 [facility] CHEM PANEL eGFR 113 08/23/2015 Result Comment: The eGFR is calculated using the CKD-EPI formula. In most young, healthy individuals the eGFR will be >90 mL/min/1.73m2. The eGFR declines with age. An eGFR of 60-89 may be normal in some populations, particularly the elderly, for whom the CKD-EPI formula has not been extensively validated. Use of the eGFR is not recommended in the following populations:

Individuals with unstable creatinine concentrations, including patients and those with serious co-morbid conditions.

Patients with extremes in muscle mass or diet.

The data above are obtained from the National Kidney Disease Education Program (NKDEP) which additionally recommends that when the eGFR is used in patients with extremes of body mass index for purposes of drug dosing, the eGFR should be multiplied by the estimated BMI. [facility] CHEM PANEL Creatinine Lvl 0.91 0.50 - 1.40 08/23/2015 [facility] CHEM PANEL CO2 29 24 - 32 08/23/2015 [facility] CHEM PANEL Calcium Lvl 8.0 8.5 - 10.5 08/23/2015 [facility] CHEM PANEL Albumin Lvl 1.9 3.5 - 5.0 08/23/2015 [facility] CHEM PANEL AGAP 11.6 10.0 - 20.0 08/23/2015 [facility] CHEM PANEL Sodium Lvl 138 135 - 145 08/23/2015 [facility] CHEM PANEL Chloride Lvl 102 95 - 109 08/23/2015 [facility] CHEM PANEL Glucose Lvl 58 70 - 99 08/23/2015 [facility] CHEM PANEL BUN 13 7 - 22 08/23/2015 [facility] CHEM PANEL Potassium Lvl 4.6 3.5 - 5.1 08/23/2015 [facility] HEMATOLOGY Eosinophils 2.7 0.0 - 4.0 08/23/2015 [facility] HEMATOLOGY Basophils 0.8 0.0 - 1.0 08/23/2015 [facility] HEMATOLOGY Monocytes 9.0 2.0 - 12.0 08/23/2015 [facility] HEMATOLOGY Segs 58.2 45.0 - 75.0 08/23/2015 [facility] HEMATOLOGY Lymphocytes 29.3 20.0 - 40.0 08/23/2015 [facility] HEMATOLOGY Eosinophils # 0.2 0.0 - 0.5 08/23/2015 [facility] HEMATOLOGY Segs-Bands # 3.9 1.5 - 8.1 08/23/2015 [facility] HEMATOLOGY Lymphocytes # 2.0 1.0 - 5.5 08/23/2015 [facility] HEMATOLOGY Basophils # 0.1 0.0 - 0.2 08/23/2015 [facility] HEMATOLOGY Monocytes # 0.6 0.0 - 0.8 08/23/2015 [facility] HEMATOLOGY Hgb 8.4 14.0 - 18.0 08/23/2015 [facility] HEMATOLOGY Platelet 284 133 - 450 08/23/2015 [facility] MPV 7.4 7.4 - 10.4 08/23/2015 [facility] HEMATOLOGY WBC 6.7 3.7 - 10.4 08/23/2015 [facility] HEMATOLOGY MCHC 31.4 32.0 - 36.0 08/23/2015 [facility] HEMATOLOGY RDW 18.0 11.5 - 14.5 08/23/2015 [facility] HEMATOLOGY MCH 26.6 27.0 - 31.0 08/23/2015 [facility] HEMATOLOGY Hct 26.8 42.0 - 54.0 08/23/2015 [facility] HEMATOLOGY RBC 3.16 4.70 - 6.10 08/23/2015 [facility] HEMATOLOGY MCV 84.6 80.0 - 94.0 08/23/2015 [facility] CHEM PANEL Phosphorus 3.2 2.5 - 4.5 08/23/2015 [facility] CHEM PANEL Sodium Lvl 136 135 - 145 08/23/2015 [facility] CHEM PANEL Glucose Lvl 83 70 - 99 08/23/2015 [facility] CHEM PANEL Calcium Lvl 8.6 8.5 - 10.5 08/23/2015 [facility] CHEM PANEL Chloride Lvl 102 95 - 109 08/23/2015 [facility] CHEM PANEL Potassium Lvl 4.7 3.5 - 5.1 08/23/2015 [facility] CHEM PANEL eGFR 107 08/23/2015 Result Comment: The eGFR is calculated using the CKD-EPI formula. In most young, healthy individuals the eGFR will be >90 mL/min/1.73m2. The eGFR declines with age. An eGFR of 60-89 may be normal in some populations, particularly the elderly, for whom the CKD-EPI formula has not been extensively validated. Use of the eGFR is not recommended in the following populations:

Individuals with unstable creatinine concentrations, including patients and those with serious co-morbid conditions.

Patients with extremes in muscle mass or diet.

The data above are obtained from the National Kidney Disease Education Program (NKDEP) which additionally recommends that when the eGFR is used in patients with extremes of body mass index for purposes of drug dosing, the eGFR should be multiplied by the estimated BMI. [facility] CHEM PANEL Creatinine Lvl 0.95 0.50 - 1.40 08/23/2015 [facility] CHEM PANEL Albumin Lvl 1.8 3.5 - 5.0 08/23/2015 [facility] CHEM PANEL CO2 28 24 - 32 08/23/2015 [facility] CHEM PANEL BUN 12 7 - 22 08/23/2015 [facility] CHEM PANEL AGAP 10.7 10.0 - 20.0 08/23/2015 [facility] HEMATOLOGY Eosinophils 2.7 0.0 - 4.0 08/23/2015 [facility] HEMATOLOGY Basophils 0.9 0.0 - 1.0 08/23/2015 [facility] HEMATOLOGY Segs-Bands # 4.0 1.5 - 8.1 08/23/2015 [facility] HEMATOLOGY Segs 55.8 45.0 - 75.0 08/23/2015 [facility] HEMATOLOGY Lymphocytes 32.2 20.0 - 40.0 08/23/2015 [facility] HEMATOLOGY Monocytes # 0.6 0.0 - 0.8 08/23/2015 [facility] HEMATOLOGY Eosinophils # 0.2 0.0 - 0.5 08/23/2015 [facility] HEMATOLOGY Basophils # 0.1 0.0 - 0.2 08/23/2015 [facility] HEMATOLOGY Monocytes 8.4 2.0 - 12.0 08/23/2015 [facility] HEMATOLOGY Lymphocytes # 2.3 1.0 - 5.5 08/23/2015 [facility] HEMATOLOGY Platelet 276 133 - 450 08/23/2015 [facility] HEMATOLOGY MPV 7.2 7.4 - 10.4 08/23/2015 [facility] HEMATOLOGY RDW 17.8 11.5 - 14.5 08/23/2015 [facility] HEMATOLOGY MCH 27.2 27.0 - 31.0 08/23/2015 [facility] HEMATOLOGY MCHC 32.2 32.0 - 36.0 08/23/2015 [facility] HEMATOLOGY Hgb 8.4 14.0 - 18.0 08/23/2015 [facility] HEMATOLOGY Hct 26.3 42.0 - 54.0 08/23/2015 [facility] HEMATOLOGY MCV 84.5 80.0 - 94.0 08/23/2015 [facility] HEMATOLOGY WBC 7.2 3.7 - 10.4 08/23/2015 [facility] HEMATOLOGY RBC 3.11 4.70 - 6.10 08/23/2015 [facility] ELECTROLYTES AGAP 11.6 10.0 - 20.0 08/21/2015 [facility] ELECTROLYTES Potassium Lvl 4.6 3.5 - 5.1 08/21/2015 [facility] ELECTROLYTES Chloride Lvl 104 95 - 109 08/21/2015 [facility] ELECTROLYTES CO2 27 24 - 32 08/21/2015 [facility] ELECTROLYTES Calcium Lvl 7.7 8.5 - 10.5 08/21/2015 [facility] ELECTROLYTES Albumin Lvl 1.9 3.5 - 5.0 08/21/2015 [facility] ELECTROLYTES BUN 13 7 - 22 08/21/2015 [facility] ELECTROLYTES Sodium Lvl 138 135 - 145 08/21/2015 [facility] ELECTROLYTES eGFR 101 08/21/2015 Result Comment: The eGFR is calculated using the CKD-EPI formula. In most young, healthy individuals the eGFR will be >90 mL/min/1.73m2. The eGFR declines with age. An eGFR of 60-89 may be normal in some populations, particularly the elderly, for whom the CKD-EPI formula has not been extensively validated. Use of the eGFR is not recommended in the following populations:

Individuals with unstable creatinine concentrations, including patients and those with serious co-morbid conditions.

Patients with extremes in muscle mass or diet.

The data above are obtained from the National Kidney Disease Education Program (NKDEP) which additionally recommends that when the eGFR is used in patients with extremes of body mass index for purposes of drug dosing, the eGFR should be multiplied by the estimated BMI. [facility] ELECTROLYTES Creatinine Lvl 1.0 0 0.50 - 1.40 08/21/2015 [facility] ELECTROLYTES Glucose Lvl 64 70 - 99 08/21/2015 [facility] ELECTROLYTES Phosphorus 3.5 2.5 - 4.5 08/21/2015 [facility] HEMATOLOGY Toxic Gran Moder ate *ABN* (08/21/15 1:00 PM) None Seen 08/21/2015 [facility] HEMATOLOGY Macrocyte 1+ *ABN* (08/21/15 1:00 PM) None Seen 08/21/2015 [facility] HEMATOLOGY Basophils # 0.0 0.0 - 0.2 08/21/2015 [facility] HEMATOLOGY Hypochrom 1+ (08/21/15 1:00 PM) None Seen 08/21/2015 [facility] HEMATOLOGY Eosinophils # 0.2 0.0 - 0.5 08/21/2015 [facility] HEMATOLOGY Segs-Bands # 3.2 1.5 - 8.1 08/21/2015 [facility] HEMATOLOGY Basophils 0.6 0.0 - 1.0 08/21/2015 [facility] HEMATOLOGY Monocytes # 0.5 0.0 - 0.8 08/21/2015 [facility] HEMATOLOGY Lymphocytes # 1.8 1.0 - 5.5 08/21/2015 [facility] HEMATOLOGY Monocytes 9.1 2.0 - 12.0 08/21/2015 [facility] HEMATOLOGY Lymphocytes 31.5 20.0 - 40.0 08/21/2015 [facility] HEMATOLOGY Eosinophils 3.3 0.0 - 4.0 08/21/2015 [facility] HEMATOLOGY Plt Morph Leeann l (08/21/15 1:00 PM) 08/21/2015 [facility] HEMATOLOGY Segs 55.5 45.0 - 75.0 08/21/2015 [facility] HEMATOLOGY WBC 5.7 3.7 - 10.4 08/21/2015 [facility] HEMATOLOGY Hct 21.4 42.0 - 54.0 08/21/2015 [facility] HEMATOLOGY RBC 2.58 4.70 - 6.10 08/21/2015 [facility] HEMATOLOGY Hgb 6.8 14.0 - 18.0 08/21/2015 Result Comment: Critical Result(s) loulou messina at 7ma by Read back OK. 08/21/2015 14:37 [facility] HEMATOLOGY MCH 26.2 27.0 - 31.0 08/21/2015 [facility] HEMATOLOGY MCHC 31.6 32.0 - 36.0 08/21/2015 [facility] HEMATOLOGY MCV 82.8 80.0 - 94.0 08/21/2015 [facility] HEMATOLOGY MPV 7.2 7.4 - 10.4 08/21/2015 [facility] Platelet 277 133 - 450 08/21/2015 [facility] HEMATOLOGY RDW 18.9 11.5 - 14.5 08/21/2015 [facility] BLOOD BANK RESULTS RBC product Product available (08/21/15 10:12 AM) 08/21/2015 [facility] CHEM PANEL Globulin 5.2 2.0 - 4.0 08/19/2015 [facility] CHEM PANEL A/G Ratio 0.3 0.7 - 1.6 08/19/2015 [facility] CHEM PANEL B/C Ratio 14 6 - 25 08/19/2015 [facility] CHEM PANEL Total Protein 6.9 6.4 - 8.4 08/19/2015 [facility] CHEM PANEL Alk Phos 74 39 - 136 08/19/2015 [facility] CHEM PANEL Bili Total 0.2 0.2 - 1.3 08/19/2015 [facility] CHEM PANEL ALT 12 0 - 65 08/19/2015 [facility] CHEM PANEL AST 10 0 - 37 08/19/2015 [facility] HEMATOLOGY RBC Morph Leeann l (08/19/15 5:34 AM) 08/19/2015 [facility] HEMATOLOGY Plt Morph Leeann l (08/19/15 5:34 AM) 08/19/2015 [facility] HEMATOLOGY PTT 30.4 22.9 - 35.8 08/19/2015 [facility] ELECTROLYTES POC Sodium 138 135 - 145 08/18/2015 [facility] ELECTROLYTES POC Hemoglobin 7.5 14.0 - 18.0 08/18/2015 [facility] ELECTROLYTES POC Glucose 78 70 - 99 08/18/2015 [facility] ELECTROLYTES POC Potassium 4.2 3.5 - 5.1 08/18/2015 [facility] ELECTROLYTES POC Hematocrit 22. 0 42.0 - 54.0 08/18/2015 [facility] BLOOD BANK RESULTS RBC product Product available 1 (08/18/15 9:34 AM) 08/18/2015 Result Comment: 08/18/2015 1 0:26 ANDER
CALLED AT 1025 TO AYUSH [facility] BLOOD BANK RESULTS ABO/Rh A POS 08/18/2015 [facility] BLOOD BANK RESULTS Antibody Scrn Negative (08/18/15 9:05 AM) 08/18/2015 [facility] CHEM PANEL A/G Ratio 0.4 0.7 - 1.6 08/18/2015 [facility] CHEM PANEL Globulin 4.5 2.0 - 4.0 08/18/2015 [facility] CHEM PANEL B/C Ratio 15 6 - 25 08/18/2015 [facility] CHEM PANEL Bili Total 0.3 0.2 - 1.3 08/18/2015 [facility] CHEM PANEL Total Protein 6.3 6.4 - 8.4 08/18/2015 [facility] CHEM PANEL Alk Phos 79 39 - 136 08/18/2015 [facility] CHEM PANEL AST 10 0 - 37 08/18/2015 [facility] CHEM PANEL ALT 14 0 - 65 08/18/2015 [facility] CHEM PANEL Bili Total 0.2 0.2 - 1.3 08/17/2015 [facility] CHEM PANEL Alk Phos 73 39 - 136 08/17/2015 [facility] CHEM PANEL Total Protein 6.2 6.4 - 8.4 08/17/2015 [facility] CHEM PANEL ALT 12 0 - 65 08/17/2015 [facility] CHEM PANEL AST 12 0 - 37 08/17/2015 [facility] CHEM PANEL A/G Ratio 0.4 0.7 - 1.6 08/17/2015 [facility] CHEM PANEL Globulin 4.4 2.0 - 4.0 08/17/2015 [facility] CHEM PANEL B/C Ratio 18 6 - 25 08/17/2015 [facility] HEMATOLOGY Plt Morph Leeann l (08/17/15 6:20 AM) 08/17/2015 [facility] HEMATOLOGY RBC Morph Leeann l (08/17/15 6:20 AM) 08/17/2015 [facility] TOXICOLOGY Amikacin Lvl <2.5 08/16/2015 [facility] TOXICOLOGY Amikacin Lvl 6.9 08/15/2015 [facility] TOXICOLOGY Amikacin Lvl <2.5 08/14/2015 [facility] HEMATOLOGY RBC Morph Leeann l (08/14/15 4:30 AM) 08/14/2015 [facility] HEMATOLOGY Toxic Gran Moder ate *ABN* (08/13/15 5:01 AM) None Seen 08/13/2015 [facility] HEMATOLOGY Hypochrom 1+ (08/13/15 5:01 AM) None Seen 08/13/2015 [facility] TOXICOLOGY Vanco Lvl 17.2 08/13/2015 [facility] IMMUNOLOGY Prealbumin 9.0 18.0 - 45.0 08/13/2015 [facility] TOXICOLOGY Vanco Lvl 27.7 08/12/2015 [facility] CHEM PANEL Lactic Acid Lvl 0.9 0.5 - 2.2 08/11/2015 [facility] CHEM PANEL Ammonia 47.0 <=45.0 uMol/L 08/11/2015 [facility] HEMATOLOGY Bands 5.0 0.0 - 11.0 08/11/2015 [facility] IMMUNOLOGY C-REACTIVE PROTEIN 94.8 <=2.9 mg/L 08/11/2015 [facility] TOXICOLOGY Vanco Lvl 14.2 08/11/2015 [facility] CHEM PANEL Magnesium Lvl 3.0 1.8 - 2.4 08/10/2015 [facility] CHEM PANEL Magnesium Lvl 3.7 1.8 - 2.4 08/09/2015 Result Comment: Critical Result(s) jamil d to Cierra Whitman at 08/09/2015 19:21_ by KB_. Read back OK. [facility] BACTERIAL - SEROLOGY MRSA by PCR Positive 1 *ABN* (08/09/15 6:32 AM) 08/09/2015 Result Comment: "Significant Findings called to Cierra Hirsch at 08/09/2015 21:17 by SBA.Read Back OK." [facility] CHEM PANEL Magnesium Lvl 1.4 1.8 - 2.4 08/09/2015 [facility] IMMUNOLOGY C-REACTIVE PROTEIN 234.0 <=2.9 mg/L 08/09/2015 [facility] CHEM PANEL Lactic Acid Lvl 3.0 0.5 - 2.2 08/09/2015 [facility] HEMATOLOGY PT 18.7 12.0 - 14.7 08/09/2015 [facility] HEMATOLOGY PTT 38.1 22.9 - 35.8 08/09/2015 [facility] HEMATOLOGY INR 1.53 0.85 - 1.17 08/09/2015 [facility] DRUG SCREEN U Cocaine Scr Nega tive *NA* (08/08/15 5:39 PM) Negative 08/08/2015 [facility] DRUG SCREEN U Benzodia Scr Posi tive *ABN* (08/08/15 5:39 PM) Negative 08/08/2015 [facility] DRUG SCREEN U Chelsie Scr Nega tive *NA* (08/08/15 5:39 PM) Negative 08/08/2015 [facility] DRUG SCREEN U Amph Scr Nega tive *NA* (08/08/15 5:39 PM) Negative 08/08/2015 [facility] DRUG SCREEN U Opiate Scr Posi tive *ABN* (08/08/15 5:39 PM) Negative 08/08/2015 [facility] DRUG SCREEN UDS Note See Note (08/08/15 5:39 PM) 08/08/2015 [facility] DRUG SCREEN U Phencyc Scr Nega tive *NA* (08/08/15 5:39 PM) Negative 08/08/2015 [facility] DRUG SCREEN U Cannab Scr Posi tive *ABN* (08/08/15 5:39 PM) Negative 08/08/2015 [facility] HEMATOLOGY INR 1.51 0.85 - 1.17 08/08/2015 [facility] HEMATOLOGY PT 18.5 12.0 - 14.7 08/08/2015 [facility] HEMATOLOGY PTT 31.5 22.9 - 35.8 08/08/2015 [facility] URINE AND STOOL UA Ketones Negative 08/08/2015 [facility] URINE AND STOOL UA Urobilinogen <=1.0 mg/dL 0.1 - 1.0 08/08/2015 [facility] URINE AND STOOL Micro? Performed *NA* (08/08/15 5:39 PM) 08/08/2015 [facility] URINE AND STOOL UA Color Ken 08/08/2015 [facility] URINE AND STOOL UA Mucus Few /LPF None Seen /LPF 08/08/2015 [facility] URINE AND STOOL UA Bacteria Many /HPF None Seen /HPF 08/08/2015 [facility] URINE AND STOOL UA RBC 53 0 - 2 08/08/2015 [facility] URINE AND STOOL UA WBC >182 0 - 5 08/08/2015 [facility] URINE AND STOOL UA Leuk Est Moderate *ABN* (08/08/15 5:39 PM) Negative 08/08/2015 [facility] URINE AND STOOL UA Nitrite Negative (08/08/15 5:39 PM) Negative 08/08/2015 [facility] URINE AND STOOL UA pH 6.0 5.0 - 8.0 08/08/2015 [facility] URINE AND STOOL UA Spec Grav 1.013 <=1.030 08/08/2015 [facility] URINE AND STOOL UA Turbidity Marked *ABN* (08/08/15 5:39 PM) Clear 08/08/2015 [facility] URINE AND STOOL UA Blood Moderate *ABN* (08/08/15 5:39 PM) Negative 08/08/2015 [facility] URINE AND STOOL UA Bili Negative *NA* (08/08/15 5:39 PM) Negative 08/08/2015 [facility] URINE AND STOOL UA Glucose Negative mg/dL Negative mg/dL 08/08/2015 [facility] URINE AND STOOL UA Protein 100 mg/dL Negative mg/dL 08/08/2015 [facility] BLOOD BANK RESULTS Antibody Scrn Negative (08/08/15 3:29 PM) 08/08/2015 [facility] BLOOD BANK RESULTS ABO/Rh A POS 08/08/2015 [facility] CARDIAC ENZYMES Troponin-I <0.02 0.00 - 0.40 08/08/2015 [facility] CHEM PANEL Lactic Acid Lvl 3.6 0.5 - 2.2 08/08/2015 [facility] TOXICOLOGY Ethanol Lvl <3 08/08/2015 [facility] TOXICOLOGY Etoh (%) <0.003 08/08/2015 [facility] CHEM PANEL Ammonia 51.0 <=45.0 uMol/L 08/08/2015 [facility] CHEM PANEL Albumin Lvl 2.2 3.5 - 5.0 06/21/2015 [facility] CHEM PANEL Globulin 5.1 2.0 - 4.0 06/21/2015 [facility] CHEM PANEL Total Protein 7.3 6.4 - 8.4 06/21/2015 [facility] CHEM PANEL Alk Phos 127 39 - 136 06/21/2015 [facility] CHEM PANEL A/G Ratio 0.4 0.7 - 1.6 06/21/2015 [facility] CHEM PANEL ALT 39 0 - 65 06/21/2015 [facility] CHEM PANEL AST 33 0 - 37 06/21/2015 [facility] CHEM PANEL Bili Direct 0.1 0.0 - 0.3 06/21/2015 [facility] CHEM PANEL Bili Total 0.5 0.2 - 1.3 06/21/2015 [facility] CHEM PANEL Bili Indirect 0.4 0.0 - 1.0 06/21/2015 [facility] ELECTROLYTES AGAP 12.8 10.0 - 20.0 06/21/2015 [facility] ELECTROLYTES eGFR 117 06/21/2015 Result Comment: The eGFR is calculated using the CKD-EPI formula. In most young, healthy individuals the eGFR will be >90 mL/min/1.73m2. The eGFR declines with age. An eGFR of 60-89 may be normal in some populations, particularly the elderly, for whom the CKD-EPI formula has not been extensively validated. Use of the eGFR is not recommended in the following populations:

Individuals with unstable creatinine concentrations, including patients and those with serious co-morbid conditions.

Patients with extremes in muscle mass or diet.

The data above are obtained from the National Kidney Disease Education Program (NKDEP) which additionally recommends that when the eGFR is used in patients with extremes of body mass index for purposes of drug dosing, the eGFR should be multiplied by the estimated BMI. [facility] ELECTROLYTES Sodium Lvl 140 135 - 145 06/21/2015 [facility] ELECTROLYTES Potassium Lvl 4.8 3.5 - 5.1 06/21/2015 [facility] ELECTROLYTES Chloride Lvl 105 95 - 109 06/21/2015 [facility] ELECTROLYTES Calcium Lvl 9.1 8.5 - 10.5 06/21/2015 [facility] ELECTROLYTES Creatinine Lvl 0.8 5 0.50 - 1.40 06/21/2015 [facility] ELECTROLYTES CO2 27 24 - 32 06/21/2015 [facility] ELECTROLYTES BUN 19 7 - 22 06/21/2015 [facility] ELECTROLYTES Glucose Lvl 74 70 - 99 06/21/2015 [facility] HEMATOLOGY Hgb 9.9 14.0 - 18.0 06/21/2015 [facility] HEMATOLOGY Hct 31.0 42.0 - 54.0 06/21/2015 [facility] HEMATOLOGY WBC 8.4 3.7 - 10.4 06/21/2015 [facility] HEMATOLOGY RBC 3.69 4.70 - 6.10 06/21/2015 [facility] HEMATOLOGY Platelet 559 133 - 450 06/21/2015 [facility] HEMATOLOGY MPV 6.9 7.4 - 10.4 06/21/2015 [facility] HEMATOLOGY MCH 26.9 27.0 - 31.0 06/21/2015 [facility] HEMATOLOGY RDW 20.4 11.5 - 14.5 06/21/2015 [facility] HEMATOLOGY MCHC 31.9 32.0 - 36.0 06/21/2015 [facility] HEMATOLOGY MCV 84.2 80.0 - 94.0 06/21/2015 [facility] HEMATOLOGY Sed Rate >100 0 - 15 06/21/2015 [facility] HEMATOLOGY Lymphocytes # 2.7 1.0 - 5.5 06/21/2015 [facility] HEMATOLOGY Monocytes # 0.8 0.0 - 0.8 06/21/2015 [facility] HEMATOLOGY Eosinophils # 0.6 0.0 - 0.5 06/21/2015 [facility] HEMATOLOGY Basophils # 0.0 0.0 - 0.2 06/21/2015 [facility] HEMATOLOGY Segs 51.2 45.0 - 75.0 06/21/2015 [facility] HEMATOLOGY Basophils 0.6 0.0 - 1.0 06/21/2015 [facility] HEMATOLOGY Segs-Bands # 4.3 1.5 - 8.1 06/21/2015 [facility] HEMATOLOGY Eosinophils 6.7 0.0 - 4.0 06/21/2015 [facility] HEMATOLOGY Lymphocytes 32.6 20.0 - 40.0 06/21/2015 [facility] HEMATOLOGY Monocytes 8.9 2.0 - 12.0 06/21/2015 [facility] TOXICOLOGY Gent Lvl 0.4 06/21/2015 [facility] CARDIAC ENZYMES Total CK 29 12 - 191 06/20/2015 [facility] ELECTROLYTES Chloride Lvl 103 95 - 109 06/20/2015 [facility] ELECTROLYTES Glucose Lvl 80 70 - 99 06/20/2015 [facility] ELECTROLYTES Sodium Lvl 138 135 - 145 06/20/2015 [facility] ELECTROLYTES Calcium Lvl 9.1 8.5 - 10.5 06/20/2015 [facility] ELECTROLYTES CO2 30 24 - 32 06/20/2015 [facility] ELECTROLYTES Potassium Lvl 4.7 3.5 - 5.1 06/20/2015 [facility] ELECTROLYTES eGFR 98 06/20/2015 Result Comment: The eGFR is calculated using the CKD-EPI formula. In most young, healthy individuals the eGFR will be >90 mL/min/1.73m2. The eGFR declines with age. An eGFR of 60-89 may be normal in some populations, particularly the elderly, for whom the CKD-EPI formula has not been extensively validated. Use of the eGFR is not recommended in the following populations:

Individuals with unstable creatinine concentrations, including patients and those with serious co-morbid conditions.

Patients with extremes in muscle mass or diet.

The data above are obtained from the [employer] (NK[employer]) which additionally recommends that when the eGFR is used in patients with extremes of body mass index for purposes of drug dosing, the eGFR should be multiplied by the estimated BMI. [facility] ELECTROLYTES BUN 18 7 - 22 06/20/2015 [facility] ELECTROLYTES Creatinine Lvl 1.0 2 0.50 - 1.40 06/20/2015 [facility] ELECTROLYTES AGAP 9.7 10.0 - 20.0 06/20/2015 [facility] HEMATOLOGY WBC 7.1 3.7 - 10.4 06/20/2015 [facility] HEMATOLOGY MCH 26.6 27.0 - 31.0 06/20/2015 [facility] HEMATOLOGY MCV 83.6 80.0 - 94.0 06/20/2015 [facility] HEMATOLOGY Hct 31.2 42.0 - 54.0 06/20/2015 [facility] HEMATOLOGY Hgb 9.9 14.0 - 18.0 06/20/2015 [facility] HEMATOLOGY RBC 3.74 4.70 - 6.10 06/20/2015 [facility] HEMATOLOGY Platelet 513 133 - 450 06/20/2015 [facility] HEMATOLOGY RDW 19.6 11.5 - 14.5 06/20/2015 [facility] HEMATOLOGY MCHC 31.8 32.0 - 36.0 06/20/2015 [facility] HEMATOLOGY MPV 6.7 7.4 - 10.4 06/20/2015 [facility] HEMATOLOGY Monocytes 13.5 2.0 - 12.0 06/20/2015 [facility] HEMATOLOGY Lymphocytes 38.8 20.0 - 40.0 06/20/2015 [facility] HEMATOLOGY Segs 40.1 45.0 - 75.0 06/20/2015 [facility] HEMATOLOGY Monocytes # 1.0 0.0 - 0.8 06/20/2015 [facility] HEMATOLOGY Lymphocytes # 2.7 1.0 - 5.5 06/20/2015 [facility] HEMATOLOGY Segs-Bands # 2.8 1.5 - 8.1 06/20/2015 [facility] HEMATOLOGY Basophils 0.7 0.0 - 1.0 06/20/2015 [facility] HEMATOLOGY Eosinophils 6.9 0.0 - 4.0 06/20/2015 [facility] HEMATOLOGY Eosinophils # 0.5 0.0 - 0.5 06/20/2015 [facility] TOXICOLOGY Gent Lvl 2.6 06/20/2015 [facility] HEMATOLOGY Segs-Bands # 3.0 1.5 - 8.1 06/19/2015 [facility] HEMATOLOGY Lymphocytes # 2.4 1.0 - 5.5 06/19/2015 [facility] HEMATOLOGY Monocytes # 0.8 0.0 - 0.8 06/19/2015 [facility] HEMATOLOGY Basophils 0.6 0.0 - 1.0 06/19/2015 [facility] HEMATOLOGY Eosinophils 5.5 0.0 - 4.0 06/19/2015 [facility] HEMATOLOGY Monocytes 12.1 2.0 - 12.0 06/19/2015 [facility] HEMATOLOGY Basophils # 0.0 0.0 - 0.2 06/19/2015 [facility] HEMATOLOGY Eosinophils # 0.4 0.0 - 0.5 06/19/2015 [facility] HEMATOLOGY Segs 45.4 45.0 - 75.0 06/19/2015 [facility] HEMATOLOGY Lymphocytes 36.4 20.0 - 40.0 06/19/2015 [facility] HEMATOLOGY MCV 83.5 80.0 - 94.0 06/19/2015 [facility] HEMATOLOGY Hct 28.3 42.0 - 54.0 06/19/2015 [facility] HEMATOLOGY WBC 6.5 3.7 - 10.4 06/19/2015 [facility] HEMATOLOGY Hgb 9.0 14.0 - 18.0 06/19/2015 [facility] HEMATOLOGY RBC 3.38 4.70 - 6.10 06/19/2015 [facility] HEMATOLOGY Platelet 552 133 - 450 06/19/2015 [facility] HEMATOLOGY MPV 7.2 7.4 - 10.4 06/19/2015 [facility] HEMATOLOGY MCH 26.6 27.0 - 31.0 06/19/2015 [facility] HEMATOLOGY RDW 19.7 11.5 - 14.5 06/19/2015 [facility] HEMATOLOGY MCHC 31.8 32.0 - 36.0 06/19/2015 [facility] ELECTROLYTES AGAP 11.6 10.0 - 20.0 06/19/2015 [facility] ELECTROLYTES Potassium Lvl 4.6 3.5 - 5.1 06/19/2015 [facility] ELECTROLYTES Chloride Lvl 106 95 - 109 06/19/2015 [facility] ELECTROLYTES Sodium Lvl 140 135 - 145 06/19/2015 [facility] ELECTROLYTES Calcium Lvl 9.0 8.5 - 10.5 06/19/2015 [facility] ELECTROLYTES CO2 27 24 - 32 06/19/2015 [facility] ELECTROLYTES BUN 16 7 - 22 06/19/2015 [facility] ELECTROLYTES eGFR 98 06/19/2015 Result Comment: The eGFR is calculated using the CKD-EPI formula. In most young, healthy individuals the eGFR will be >90 mL/min/1.73m2. The eGFR declines with age. An eGFR of 60-89 may be normal in some populations, particularly the elderly, for whom the CKD-EPI formula has not been extensively validated. Use of the eGFR is not recommended in the following populations:

Individuals with unstable creatinine concentrations, including patients and those with serious co-morbid conditions.

Patients with extremes in muscle mass or diet.

The data above are obtained from the National Kidney Disease Education Program (NKDEP) which additionally recommends that when the eGFR is used in patients with extremes of body mass index for purposes of drug dosing, the eGFR should be multiplied by the estimated BMI. [facility] ELECTROLYTES Creatinine Lvl 1.0 2 0.50 - 1.40 06/19/2015 [facility] ELECTROLYTES Glucose Lvl 95 70 - 99 06/19/2015 [facility] CHEM PANEL Magnesium Lvl 1.8 1.8 - 2.4 06/18/2015 [facility] CHEM PANEL Phosphorus 4.4 2.5 - 4.5 06/18/2015 [facility] HEMATOLOGY PT 14.2 12.0 - 14.7 06/18/2015 [facility] HEMATOLOGY PTT 38.9 22.9 - 35.8 06/18/2015 [facility] HEMATOLOGY INR 1.07 0.85 - 1.17 06/18/2015 [facility] HEMATOLOGY Plt Morph Leeann l (06/18/15 5:58 AM) 06/18/2015 [facility] HEMATOLOGY RBC Morph Leeann l (06/18/15 5:58 AM) 06/18/2015 [facility] CHEM PANEL Lactic Acid Lvl 2.6 0.5 - 2.2 06/17/2015 [facility] CHEM PANEL Procalcitonin Lvl <0.05 0.00 - 0.10 06/17/2015 [facility] HEMATOLOGY Basophils # 0.1 0.0 - 0.2 06/17/2015 [facility] IMMUNOLOGY C-REACTIVE PROTEIN 139.0 <=2.9 mg/L 06/17/2015 [facility] URINE AND STOOL UA Urobilinogen <=1.0 mg/dL 0.1 - 1.0 06/17/2015 [facility] URINE AND STOOL UA Ketones Negative 06/17/2015 [facility] URINE AND STOOL UA Color Yellow *NA* (06/16/15 7:01 PM) Yellow 06/17/2015 [facility] URINE AND STOOL UA Turbidity Marked *ABN* (06/16/15 7:01 PM) Clear 06/17/2015 [facility] URINE AND STOOL UA Glucose Negative mg/dL Negative mg/dL 06/17/2015 [facility] URINE AND STOOL UA Bili Negative *NA* (06/16/15 7:01 PM) Negative 06/17/2015 [facility] URINE AND STOOL UA Nitrite Negative (06/16/15 7:01 PM) Negative 06/17/2015 [facility] URINE AND STOOL UA pH 6.0 5.0 - 8.0 06/17/2015 [facility] URINE AND STOOL UA Protein 30 mg/dL Negative mg/dL 06/17/2015 [facility] URINE AND STOOL UA Spec Grav 1.011 <=1.030 06/17/2015 [facility] URINE AND STOOL UA Leuk Est Large *ABN* (06/16/15 7:01 PM) Negative 06/17/2015 [facility] URINE AND STOOL UA Sq Epi Few /LPF Few /LPF 06/17/2015 [facility] URINE AND STOOL UA WBC >182 0 - 5 06/17/2015 [facility] URINE AND STOOL UA RBC 19 0 - 2 06/17/2015 [facility] URINE AND STOOL UA Blood Negative (06/16/15 7:01 PM) Negative 06/17/2015 [facility] URINE AND STOOL UA Bacteria Few /HPF None Seen /HPF 06/17/2015 [facility] ELECTROLYTES AGAP 9.1 10.0 - 20.0 06/04/2015 [facility] ELECTROLYTES eGFR 90 06/04/2015 Result Comment: The eGFR is calculated using the CKD-EPI formula. In most young, healthy individuals the eGFR will be >90 mL/min/1.73m2. The eGFR declines with age. An eGFR of 60-89 may be normal in some populations, particularly the elderly, for whom the CKD-EPI formula has not been extensively validated. Use of the eGFR is not recommended in the following populations:

Individuals with unstable creatinine concentrations, including patients and those with serious co-morbid conditions.

Patients with extremes in muscle mass or diet.

The data above are obtained from the National Kidney Disease Education Program (NKDEP) which additionally recommends that when the eGFR is used in patients with extremes of body mass index for purposes of drug dosing, the eGFR should be multiplied by the estimated BMI. [facility] ELECTROLYTES Chloride Lvl 102 95 - 109 06/04/2015 [facility] ELECTROLYTES Potassium Lvl 5.1 3.5 - 5.1 06/04/2015 [facility] ELECTROLYTES Sodium Lvl 137 135 - 145 06/04/2015 [facility] ELECTROLYTES Creatinine Lvl 1.1 0.5 - 1.4 06/04/2015 [facility] ELECTROLYTES BUN 15 7 - 22 06/04/2015 [facility] ELECTROLYTES Glucose Lvl 86 70 - 99 06/04/2015 [facility] ELECTROLYTES CO2 31 24 - 32 06/04/2015 [facility] ELECTROLYTES Calcium Lvl 8.6 8.5 - 10.5 06/04/2015 [facility] HEMATOLOGY MPV 6.4 7.4 - 10.4 06/04/2015 [facility] HEMATOLOGY Platelet 480 133 - 450 06/04/2015 [facility] HEMATOLOGY MCH 26.7 27.0 - 31.0 06/04/2015 [facility] HEMATOLOGY Hct 30.8 42.0 - 54.0 06/04/2015 [facility] HEMATOLOGY Hgb 9.8 14.0 - 18.0 06/04/2015 [facility] HEMATOLOGY MCV 84.2 80.0 - 94.0 06/04/2015 [facility] HEMATOLOGY RDW 19.8 11.5 - 14.5 06/04/2015 [facility] HEMATOLOGY MCHC 31.7 32.0 - 36.0 06/04/2015 [facility] HEMATOLOGY RBC 3.66 4.70 - 6.10 06/04/2015 [facility] HEMATOLOGY WBC 7.9 3.7 - 10.4 06/04/2015 [facility] HEMATOLOGY Basophils # 0.0 0.0 - 0.2 06/04/2015 [facility] HEMATOLOGY Eosinophils # 0.3 0.0 - 0.5 06/04/2015 [facility] HEMATOLOGY Lymphocytes 31.5 20.0 - 40.0 06/04/2015 [facility] HEMATOLOGY Monocytes 8.0 2.0 - 12.0 06/04/2015 [facility] HEMATOLOGY Segs 56.5 45.0 - 75.0 06/04/2015 [facility] HEMATOLOGY Lymphocytes # 2.5 1.0 - 5.5 06/04/2015 [facility] HEMATOLOGY Monocytes # 0.6 0.0 - 0.8 06/04/2015 [facility] HEMATOLOGY Segs-Bands # 4.4 1.5 - 8.1 06/04/2015 [facility] HEMATOLOGY Basophils 0.4 0.0 - 1.0 06/04/2015 [facility] HEMATOLOGY Eosinophils 3.6 0.0 - 4.0 06/04/2015 [facility] ELECTROLYTES AGAP 9.6 10.0 - 20.0 06/03/2015 [facility] ELECTROLYTES eGFR 90 06/03/2015 Result Comment: The eGFR is calculated using the CKD-EPI formula. In most young, healthy individuals the eGFR will be >90 mL/min/1.73m2. The eGFR declines with age. An eGFR of 60-89 may be normal in some populations, particularly the elderly, for whom the CKD-EPI formula has not been extensively validated. Use of the eGFR is not recommended in the following populations:

Individuals with unstable creatinine concentrations, including patients and those with serious co-morbid conditions.

Patients with extremes in muscle mass or diet.

The data above are obtained from the National Kidney Disease Education Program (NKDEP) which additionally recommends that when the eGFR is used in patients with extremes of body mass index for purposes of drug dosing, the eGFR should be multiplied by the estimated BMI. [facility] ELECTROLYTES Potassium Lvl 4.6 3.5 - 5.1 06/03/2015 [facility] ELECTROLYTES Sodium Lvl 140 135 - 145 06/03/2015 [facility] ELECTROLYTES Glucose Lvl 81 70 - 99 06/03/2015 [facility] ELECTROLYTES Creatinine Lvl 1.1 0.5 - 1.4 06/03/2015 [facility] ELECTROLYTES BUN 11 7 - 22 06/03/2015 [facility] ELECTROLYTES Chloride Lvl 105 95 - 109 06/03/2015 [facility] ELECTROLYTES CO2 30 24 - 32 06/03/2015 [facility] ELECTROLYTES Calcium Lvl 8.6 8.5 - 10.5 06/03/2015 [facility] HEMATOLOGY PT 14.0 12.0 - 14.7 06/03/2015 [facility] HEMATOLOGY INR 1.05 0.85 - 1.17 06/03/2015 [facility] HEMATOLOGY MCHC 30.6 32.0 - 36.0 06/03/2015 [facility] HEMATOLOGY MCV 84.8 80.0 - 94.0 06/03/2015 [facility] HEMATOLOGY MCH 26.0 27.0 - 31.0 06/03/2015 [facility] HEMATOLOGY Hct 30.4 42.0 - 54.0 06/03/2015 [facility] HEMATOLOGY Hgb 9.3 14.0 - 18.0 06/03/2015 [facility] HEMATOLOGY WBC 8.5 3.7 - 10.4 06/03/2015 [facility] HEMATOLOGY RBC 3.58 4.70 - 6.10 06/03/2015 [facility] HEMATOLOGY MPV 6.4 7.4 - 10.4 06/03/2015 [facility] HEMATOLOGY Platelet 494 133 - 450 06/03/2015 [facility] HEMATOLOGY RDW 19.1 11.5 - 14.5 06/03/2015 [facility] HEMATOLOGY Monocytes 7.3 2.0 - 12.0 06/03/2015 [facility] HEMATOLOGY Lymphocytes 28.6 20.0 - 40.0 06/03/2015 [facility] HEMATOLOGY Segs 60.1 45.0 - 75.0 06/03/2015 [facility] HEMATOLOGY Segs-Bands # 5.1 1.5 - 8.1 06/03/2015 [facility] HEMATOLOGY Eosinophils 3.5 0.0 - 4.0 06/03/2015 [facility] HEMATOLOGY Basophils 0.5 0.0 - 1.0 06/03/2015 [facility] HEMATOLOGY Eosinophils # 0.3 0.0 - 0.5 06/03/2015 [facility] HEMATOLOGY Monocytes # 0.6 0.0 - 0.8 06/03/2015 [facility] HEMATOLOGY Lymphocytes # 2.4 1.0 - 5.5 06/03/2015 [facility] HEMATOLOGY Basophils # 0.0 0.0 - 0.2 06/03/2015 [facility] TOXICOLOGY Vanco Lvl 3.6 06/03/2015 [facility] TOXICOLOGY Vanco Lvl 5.0 06/03/2015 [facility] CHEM PANEL eGFR 101 06/01/2015 Result Comment: The eGFR is calculated using the CKD-EPI formula. In most young, healthy individuals the eGFR will be >90 mL/min/1.73m2. The eGFR declines with age. An eGFR of 60-89 may be normal in some populations, particularly the elderly, for whom the CKD-EPI formula has not been extensively validated. Use of the eGFR is not recommended in the following populations:

Individuals with unstable creatinine concentrations, including patients and those with serious co-morbid conditions.

Patients with extremes in muscle mass or diet.

The data above are obtained from the National Kidney Disease Education Program (NKDEP) which additionally recommends that when the eGFR is used in patients with extremes of body mass index for purposes of drug dosing, the eGFR should be multiplied by the estimated BMI. [facility] CHEM PANEL Sodium Lvl 139 135 - 145 06/01/2015 [facility] CHEM PANEL Potassium Lvl 4.7 3.5 - 5.1 06/01/2015 [facility] CHEM PANEL Chloride Lvl 106 95 - 109 06/01/2015 [facility] CHEM PANEL Glucose Lvl 81 70 - 99 06/01/2015 [facility] CHEM PANEL Calcium Lvl 8.4 8.5 - 10.5 06/01/2015 [facility] CHEM PANEL CO2 28 24 - 32 06/01/2015 [facility] CHEM PANEL BUN 12 7 - 22 06/01/2015 [facility] CHEM PANEL Creatinine Lvl 1.0 0.5 - 1.4 06/01/2015 [facility] CHEM PANEL AGAP 9.7 10.0 - 20.0 06/01/2015 [facility] HEMATOLOGY MPV 6.5 7.4 - 10.4 06/01/2015 [facility] HEMATOLOGY Platelet 439 133 - 450 06/01/2015 [facility] HEMATOLOGY MCV 84.2 80.0 - 94.0 06/01/2015 [facility] HEMATOLOGY MCH 26.5 27.0 - 31.0 06/01/2015 [facility] HEMATOLOGY RDW 18.7 11.5 - 14.5 06/01/2015 [facility] HEMATOLOGY MCHC 31.5 32.0 - 36.0 06/01/2015 [facility] HEMATOLOGY RBC 3.51 4.70 - 6.10 06/01/2015 [facility] HEMATOLOGY Hct 29.5 42.0 - 54.0 06/01/2015 [facility] HEMATOLOGY Hgb 9.3 14.0 - 18.0 06/01/2015 [facility] HEMATOLOGY WBC 7.8 3.7 - 10.4 06/01/2015 [facility] HEMATOLOGY Lymphocytes # 2.2 1.0 - 5.5 06/01/2015 [facility] HEMATOLOGY Basophils # 0.0 0.0 - 0.2 06/01/2015 [facility] HEMATOLOGY Monocytes # 0.7 0.0 - 0.8 06/01/2015 [facility] HEMATOLOGY Eosinophils # 0.3 0.0 - 0.5 06/01/2015 [facility] HEMATOLOGY Segs-Bands # 4.6 1.5 - 8.1 06/01/2015 [facility] HEMATOLOGY Eosinophils 3.5 0.0 - 4.0 06/01/2015 [facility] HEMATOLOGY Monocytes 9.3 2.0 - 12.0 06/01/2015 [facility] HEMATOLOGY Basophils 0.6 0.0 - 1.0 06/01/2015 [facility] HEMATOLOGY Segs 58.6 45.0 - 75.0 06/01/2015 [facility] HEMATOLOGY Lymphocytes 28.0 20.0 - 40.0 06/01/2015 [facility] TOXICOLOGY Vanco Tr TND 0245 06/01/2015 [facility] TOXICOLOGY Vanco Tr 26.2 06/01/2015 [facility] TOXICOLOGY Vanco Tr TND 0000 06/01/2015 [facility] TOXICOLOGY Vanco Tr 21.2 06/01/2015 [facility] CHEM PANEL AST 14 0 - 37 05/31/2015 [facility] CHEM PANEL Bili Total 0.3 0.2 - 1.3 05/31/2015 [facility] CHEM PANEL Alk Phos 95 39 - 136 05/31/2015 [facility] CHEM PANEL ALT 16 0 - 65 05/31/2015 [facility] CHEM PANEL Total Protein 7.1 6.4 - 8.4 05/31/2015 [facility] CHEM PANEL Albumin Lvl 1.6 3.5 - 5.0 05/31/2015 [facility] CHEM PANEL B/C Ratio 7 6 - 25 05/31/2015 [facility] CHEM PANEL Globulin 5.5 2.0 - 4.0 05/31/2015 [facility] CHEM PANEL A/G Ratio 0.3 0.7 - 1.6 05/31/2015 [facility] URINE AND STOOL Occult Bld Stl Negative (05/30/15 4:25 PM) Negative 05/30/2015 [facility] URINE AND STOOL UA Mucus Rare /LPF None Seen /LPF 05/30/2015 [facility] URINE AND STOOL UA Bacteria Few /HPF None Seen /HPF 05/30/2015 [facility] URINE AND STOOL UA WBC 11-20 /HPF None Seen /HPF 05/30/2015 [facility] URINE AND STOOL UA RBC 3-5 /HPF 0 - 2 05/30/2015 [facility] URINE AND STOOL UA Hyph Yeast Occasional /HPF 05/30/2015 [facility] URINE AND STOOL UA Clay Yeast Occasional /HPF None Seen /HPF 05/30/2015 [facility] URINE AND STOOL UA Sq Epi Occasional /LPF Few /LPF 05/30/2015 [facility] URINE AND STOOL Micro? Performed (05/30/15 3:15 PM) 05/30/2015 [facility] BLOOD BANK RESULTS RBC product Product available (05/30/15 2:19 PM) 05/30/2015 [facility] BLOOD BANK RESULTS ABO/Rh A POS 05/30/2015 [facility] BLOOD BANK RESULTS Antibody Scrn Negative (05/30/15 12:20 PM) 05/30/2015 [facility] HEMATOLOGY Retic Auto 0.8 0.5 - 1.5 05/30/2015 [facility] CHEM PANEL Lactic Acid Lvl 1.6 0.5 - 2.2 05/30/2015 [facility] CHEM PANEL Magnesium Lvl 1.6 1.8 - 2.4 05/30/2015 [facility] CHEM PANEL Albumin Lvl 1.4 3.5 - 5.0 05/30/2015 [facility] CHEM PANEL Phosphorus 3.0 2.5 - 4.5 05/30/2015 [facility] IMMUNOLOGY Prealbumin 3.1 18.0 - 45.0 05/29/2015 [facility] TOXICOLOGY Vanco Tr 19.7 05/29/2015 [facility] TOXICOLOGY Vanco Tr TND 0830 05/29/2015 [facility] CHEM PANEL Bili Total 0.2 0.2 - 1.3 05/28/2015 [facility] CHEM PANEL Alk Phos 100 39 - 136 05/28/2015 [facility] CHEM PANEL AST 14 0 - 37 05/28/2015 [facility] CHEM PANEL Globulin 4.4 2.0 - 4.0 05/28/2015 [facility] CHEM PANEL Albumin Lvl 1.6 3.5 - 5.0 05/28/2015 [facility] CHEM PANEL ALT 17 0 - 65 05/28/2015 [facility] CHEM PANEL A/G Ratio 0.4 0.7 - 1.6 05/28/2015 [facility] CHEM PANEL Total Protein 6.0 6.4 - 8.4 05/28/2015 [facility] CHEM PANEL B/C Ratio 9 6 - 25 05/28/2015 [facility] HEMATOLOGY PTT 42.5 22.9 - 35.8 05/28/2015 [facility] URINE AND STOOL UA Leuk Est Moderate *ABN* (05/27/15 10:28 PM) Negative 05/28/2015 [facility] URINE AND STOOL UA Nitrite Positive *ABN* (05/27/15 10:28 PM) Negative 05/28/2015 [facility] URINE AND STOOL UA Sq Epi Few /LPF Few /LPF 05/28/2015 [facility] URINE AND STOOL Micro? Performed (05/27/15 10:28 PM) 05/28/2015 [facility] URINE AND STOOL UA RBC 6-10 /HPF 0 - 2 05/28/2015 [facility] URINE AND STOOL UA Amorph Michelle Moderate /HPF None Seen /HPF 05/28/2015 [facility] URINE AND STOOL UA WBC >100 /HPF None Seen /HPF 05/28/2015 [facility] URINE AND STOOL UA Renal Epi 0-2 /LPF None Seen /LPF 05/28/2015 [facility] URINE AND STOOL UA Bacteria Many /HPF None Seen /HPF 05/28/2015 [facility] URINE AND STOOL UA Glucose Negative (05/27/15 10:28 PM) Negative 05/28/2015 [facility] URINE AND STOOL UA Ketones Negative *NA* (05/27/15 10:28 PM) Negative 05/28/2015 [facility] URINE AND STOOL UA Bili Negative *NA* (05/27/15 10:28 PM) Negative 05/28/2015 [facility] URINE AND STOOL UA pH 6.5 5.0 - 8.0 05/28/2015 [facility] URINE AND STOOL UA Protein 100 mg/dL Negative mg/dL 05/28/2015 [facility] URINE AND STOOL UA Urobilinogen 0.2 0.1 - 1.0 05/28/2015 [facility] URINE AND STOOL UA Blood Large *ABN* (05/27/15 10:28 PM) Negative 05/28/2015 [facility] URINE AND STOOL UA Turbidity Cloudy *ABN* (05/27/15 10:28 PM) Clear 05/28/2015 [facility] URINE AND STOOL UA Spec Grav 1.015 <=1.030 05/28/2015 [facility] URINE AND STOOL UA Color Yellow (05/27/15 10:28 PM) Yellow 05/28/2015 [facility] CHEM PANEL Lactic Acid Lvl 2.3 0.5 - 2.2 05/28/2015 [facility] TOXICOLOGY Salicylate Lvl 2.5 0.0 - 30.0 05/28/2015 [facility] TOXICOLOGY Acetaminoph Lvl 5 10 - 20 05/28/2015 [facility] CHEM PANEL Globulin 5.8 2.0 - 4.0 05/27/2015 [facility] CHEM PANEL A/G Ratio 0.3 0.7 - 1.6 05/27/2015 [facility] CHEM PANEL B/C Ratio 9 6 - 25 05/27/2015 [facility] CHEM PANEL Total Protein 7.7 6.4 - 8.4 05/27/2015 [facility] CHEM PANEL ALT 22 0 - 65 05/27/2015 [facility] CHEM PANEL AST 17 0 - 37 05/27/2015 [facility] CHEM PANEL Alk Phos 113 39 - 136 05/27/2015 [facility] CHEM PANEL Bili Total 0.3 0.2 - 1.3 05/27/2015 [facility] HEMATOLOGY Toxic Gran Moder ate *ABN* (05/27/15 6:54 PM) None Seen 05/27/2015 [facility] HEMATOLOGY Hypochrom 1+ (05/27/15 6:54 PM) None Seen 05/27/2015 [facility] HEMATOLOGY Stomatocyte Moder ate *ABN* (05/27/15 6:54 PM) None Seen 05/27/2015 [facility] HEMATOLOGY Rouleaux Prese nt *ABN* (05/27/15 6:54 PM) None Seen 05/27/2015 [facility] HEMATOLOGY Plt Morph Leeann l (05/27/15 6:54 PM) 05/27/2015 [facility] URINE AND STOOL UA Glucose Negative (05/27/15 6:54 PM) Negative 05/27/2015 [facility] URINE AND STOOL UA Ketones Negative *NA* (05/27/15 6:54 PM) Negative 05/27/2015 [facility] URINE AND STOOL UA Nitrite Positive *ABN* (05/27/15 6:54 PM) Negative 05/27/2015 [facility] URINE AND STOOL UA Sq Epi None Seen (05/27/15 6:54 PM) Few 05/27/2015 [facility] URINE AND STOOL UA WBC 21-50 /HPF None Seen /HPF 05/27/2015 [facility] URINE AND STOOL UA Leuk Est Moderate *ABN* (05/27/15 6:54 PM) Negative 05/27/2015 [facility] URINE AND STOOL UA pH 6.0 5.0 - 8.0 05/27/2015 [facility] URINE AND STOOL UA Protein 30 mg/dL Negative mg/dL 05/27/2015 [facility] URINE AND STOOL UA Bili Negative *NA* (05/27/15 6:54 PM) Negative 05/27/2015 [facility] URINE AND STOOL UA Urobilinogen 0.2 0.1 - 1.0 05/27/2015 [facility] URINE AND STOOL UA Blood Small *ABN* (05/27/15 6:54 PM) Negative 05/27/2015 [facility] URINE AND STOOL UA Mucus None Seen (05/27/15 6:54 PM) None Seen 05/27/2015 [facility] URINE AND STOOL UA RBC 0-2 /HPF 0 - 2 05/27/2015 [facility] URINE AND STOOL UA Bacteria Moderate /HPF None Seen /HPF 05/27/2015 [facility] URINE AND STOOL UA Color Yellow *NA* (05/27/15 6:54 PM) Yellow 05/27/2015 [facility] [facility] URINE AND STOOL UA Spec Grav 1.010 <=1.030 05/27/2015 [facility] URINE AND STOOL UA Turbidity Slight Cloudy (05/27/15 6:54 PM) Clear 05/27/2015 [facility] CHEM PANEL Phosphorus 2.9 2.5 - 4.5 06/29/2014 [facility] CHEM PANEL Magnesium Lvl 2.0 1.8 - 2.4 06/29/2014 [facility] CHEM PANEL eGFR 115 06/29/2014 <sup>1</sup>Result Comment: The eGFR is calculated using the CKD-EPI formula. In most young, healthy individuals the eGFR will be >90 mL/min/1.73m2. The eGFR declines with age. An eGFR of 60-89 may be normal in some populations, particularly the elderly, for whom the CKD-EPI formula has not been extensively validated. Use of the eGFR is not recommended in the following populations:& lt;br/>
Individuals with unstable creatinine concentrations, including patients and those with serious co-morbid conditions.

Patients with extremes in muscle mass or diet.

The data above are obtained from the National Kidney Disease Education Program (NKDEP) which additionally recommends that when the eGFR is used in patients with extremes of body mass index for purposes of drug dosing, the eGFR should be multiplied by the estimated BMI. [facility] CHEM PANEL Calcium Lvl 8.5 8.5 - 10.5 06/29/2014 [facility] CHEM PANEL Potassium Lvl 3.2 3.5 - 5.1 06/29/2014 [facility] CHEM PANEL Chloride Lvl 109 95 - 109 06/29/2014 [facility] CHEM PANEL CO2 27 24 - 32 06/29/2014 [facility] CHEM PANEL Glucose Lvl 109 70 - 99 06/29/2014 <sup>4</sup>Interpretive Data: Adult ref erence range values reflect the clinical guidelines
of the [place] [employer]. [facility] CHEM PANEL Creatinine Lvl 0.9 0.5 - 1.4 06/29/2014 [facility] CHEM PANEL Sodium Lvl 143 135 - 145 06/29/2014 [facility] CHEM PANEL BUN 8 7 - 22 06/29/2014 [facility] CHEM PANEL AGAP 10.2 10.0 - 20.0 06/29/2014 [facility] HEMATOLOGY RBC 3.34 4.70 - 6.10 06/29/2014 [facility] HEMATOLOGY Hgb 10.1 14.0 - 18.0 06/29/2014 [facility] HEMATOLOGY WBC 5.8 3.7 - 10.4 06/29/2014 [facility] HEMATOLOGY MCHC 33.2 32.0 - 36.0 06/29/2014 [facility] HEMATOLOGY MCV 90.7 80.0 - 94.0 06/29/2014 [facility] HEMATOLOGY Hct 30.3 42.0 - 54.0 06/29/2014 [facility] HEMATOLOGY MCH 30.1 27.0 - 31.0 06/29/2014 [facility] HEMATOLOGY RDW 16.1 11.5 - 14.5 06/29/2014 [facility] HEMATOLOGY Platelet 271 133 - 450 06/29/2014 [facility] HEMATOLOGY MPV 7.2 7.4 - 10.4 06/29/2014 [facility] HEMATOLOGY Monocytes # 0.6 0.0 - 0.8 06/29/2014 [facility] HEMATOLOGY Lymphocytes # 1.7 1.0 - 5.5 06/29/2014 [facility] HEMATOLOGY Eosinophils # 0.2 0.0 - 0.5 06/29/2014 [facility] HEMATOLOGY Segs-Bands # 3.2 1.5 - 8.1 06/29/2014 [facility] HEMATOLOGY Basophils 0.6 0.0 - 1.0 06/29/2014 [facility] HEMATOLOGY Basophils # 0.0 0.0 - 0.2 06/29/2014 [facility] HEMATOLOGY Segs 56.2 45.0 - 75.0 06/29/2014 [facility] HEMATOLOGY Monocytes 10.0 2.0 - 12.0 06/29/2014 [facility] HEMATOLOGY Lymphocytes 29.2 20.0 - 40.0 06/29/2014 [facility] HEMATOLOGY Eosinophils 4.0 0.0 - 4.0 06/29/2014 [facility] CHEM PANEL Magnesium Lvl 1.6 1.8 - 2.4 06/28/2014 [facility] CHEM PANEL eGFR 90 06/28/2014 <sup>2</sup>Result Comment: The eGFR is calculated using the CKD-EPI formula. In most young, healthy individuals the eGFR will be >90 mL/min/1.73m2. The eGFR declines with age. An eGFR of 60-89 may be normal in some populations, particularly the elderly, for whom the CKD-EPI formula has not been extensively validated. Use of the eGFR is not recommended in the following populations:& lt;br/>
Individuals with unstable creatinine concentrations, including patients and those with serious co-morbid conditions.

Patients with extremes in muscle mass or diet.

The data above are obtained from the National Kidney Disease Education Program (NKDEP) which additionally recommends that when the eGFR is used in patients with extremes of body mass index for purposes of drug dosing, the eGFR should be multiplied by the estimated BMI. [facility] CHEM PANEL Bili Total 0.3 0.2 - 1.3 06/28/2014 [facility] CHEM PANEL Alk Phos 79 39 - 136 06/28/2014 [facility] CHEM PANEL AST 17 0 - 37 06/28/2014 [facility] CHEM PANEL Calcium Lvl 8.7 8.5 - 10.5 06/28/2014 [facility] CHEM PANEL AGAP 10.7 10.0 - 20.0 06/28/2014 [facility] CHEM PANEL CO2 25 24 - 32 06/28/2014 [facility] CHEM PANEL Chloride Lvl 111 95 - 109 06/28/2014 [facility] CHEM PANEL Potassium Lvl 3.7 3.5 - 5.1 06/28/2014 [facility] CHEM PANEL ALT 23 0 - 65 06/28/2014 [facility] CHEM PANEL A/G Ratio 0.6 0.7 - 1.6 06/28/2014 [facility] CHEM PANEL Globulin 3.8 2.0 - 4.0 06/28/2014 [facility] CHEM PANEL Albumin Lvl 2.3 3.5 - 5.0 06/28/2014 [facility] CHEM PANEL B/C Ratio 12 6 - 25 06/28/2014 [facility] CHEM PANEL Total Protein 6.1 6.4 - 8.4 06/28/2014 [facility] CHEM PANEL Glucose Lvl 84 70 - 99 06/28/2014 <sup>5</sup>Interpretive Data: Adult ref erence range values reflect the clinical guidelines
of the [place] [employer]. [facility] CHEM PANEL Sodium Lvl 143 135 - 145 06/28/2014 [facility] CHEM PANEL BUN 13 7 - 22 06/28/2014 [facility] CHEM PANEL Creatinine Lvl 1.1 0.5 - 1.4 06/28/2014 [facility] HEMATOLOGY MPV 7.5 7.4 - 10.4 06/28/2014 [facility] HEMATOLOGY Platelet 217 133 - 450 06/28/2014 [facility] HEMATOLOGY WBC 5.1 3.7 - 10.4 06/28/2014 [facility] HEMATOLOGY Hgb 9.6 14.0 - 18.0 06/28/2014 [facility] HEMATOLOGY MCHC 33.0 32.0 - 36.0 06/28/2014 [facility] HEMATOLOGY RBC 3.24 4.70 - 6.10 06/28/2014 [facility] HEMATOLOGY MCH 29.6 27.0 - 31.0 06/28/2014 [facility] HEMATOLOGY MCV 89.5 80.0 - 94.0 06/28/2014 [facility] HEMATOLOGY Hct 28.9 42.0 - 54.0 06/28/2014 [facility] HEMATOLOGY RDW 16.0 11.5 - 14.5 06/28/2014 [facility] HEMATOLOGY Segs 46.0 45.0 - 75.0 06/28/2014 [facility] HEMATOLOGY Basophils 0.5 0.0 - 1.0 06/28/2014 [facility] HEMATOLOGY Eosinophils 2.8 0.0 - 4.0 06/28/2014 [facility] HEMATOLOGY Lymphocytes 39.9 20.0 - 40.0 06/28/2014 [facility] HEMATOLOGY Monocytes 10.8 2.0 - 12.0 06/28/2014 [facility] HEMATOLOGY Segs-Bands # 2.4 1.5 - 8.1 06/28/2014 [facility] HEMATOLOGY Basophils # 0.0 0.0 - 0.2 06/28/2014 [facility] HEMATOLOGY Eosinophils # 0.1 0.0 - 0.5 06/28/2014 [facility] HEMATOLOGY Monocytes # 0.6 0.0 - 0.8 06/28/2014 [facility] HEMATOLOGY Lymphocytes # 2.0 1.0 - 5.5 06/28/2014 [facility] IMMUNOLOGY Prealbumin 10.7 18.0 - 45.0 06/28/2014 [facility] CHEM PANEL Magnesium Lvl 1.9 1.8 - 2.4 06/27/2014 [facility] CHEM PANEL B/C Ratio 12 6 - 25 06/27/2014 [facility] CHEM PANEL AGAP 9.6 10.0 - 20.0 06/27/2014 [facility] CHEM PANEL A/G Ratio 0.6 0.7 - 1.6 06/27/2014 [facility] CHEM PANEL Globulin 4.1 2.0 - 4.0 06/27/2014 [facility] CHEM PANEL eGFR 121 06/27/2014 <sup>3</sup>Result Comment: The eGFR is calculated using the CKD-EPI formula. In most young, healthy individuals the eGFR will be >90 mL/min/1.73m2. The eGFR declines with age. An eGFR of 60-89 may be normal in some populations, particularly the elderly, for whom the CKD-EPI formula has not been extensively validated. Use of the eGFR is not recommended in the following populations:& lt;br/>
Individuals with unstable creatinine concentrations, including patients and those with serious co-morbid conditions.

Patients with extremes in muscle mass or diet.

The data above are obtained from the National Kidney Disease Education Program (NKDEP) which additionally recommends that when the eGFR is used in patients with extremes of body mass index for purposes of drug dosing, the eGFR should be multiplied by the estimated BMI. [facility] CHEM PANEL Potassium Lvl 3.6 3.5 - 5.1 06/27/2014 [facility] CHEM PANEL Sodium Lvl 141 135 - 145 06/27/2014 [facility] CHEM PANEL Total Protein 6.5 6.4 - 8.4 06/27/2014 [facility] CHEM PANEL Chloride Lvl 109 95 - 109 06/27/2014 [facility] CHEM PANEL CO2 26 24 - 32 06/27/2014 [facility] CHEM PANEL Albumin Lvl 2.4 3.5 - 5.0 06/27/2014 [facility] CHEM PANEL ALT 25 0 - 65 06/27/2014 [facility] CHEM PANEL Calcium Lvl 8.7 8.5 - 10.5 06/27/2014 [facility] CHEM PANEL AST 21 0 - 37 06/27/2014 [facility] CHEM PANEL Alk Phos 88 39 - 136 06/27/2014 [facility] CHEM PANEL Bili Total 0.2 0.2 - 1.3 06/27/2014 [facility] CHEM PANEL BUN 10 7 - 22 06/27/2014 [facility] CHEM PANEL Creatinine Lvl 0.8 0.5 - 1.4 06/27/2014 [facility] CHEM PANEL Glucose Lvl 90 70 - 99 06/27/2014 <sup>6</sup>Interpretive Data: Adult ref erence range values reflect the clinical guidelines
of the [place] [employer]. [facility] HEMATOLOGY MPV 7.7 7.4 - 10.4 06/27/2014 [facility] HEMATOLOGY MCHC 33.3 32.0 - 36.0 06/27/2014 [facility] HEMATOLOGY MCH 30.2 27.0 - 31.0 06/27/2014 [facility] HEMATOLOGY Platelet 216 133 - 450 06/27/2014 [facility] HEMATOLOGY RDW 16.3 11.5 - 14.5 06/27/2014 [facility] HEMATOLOGY MCV 90.8 80.0 - 94.0 06/27/2014 [facility] HEMATOLOGY Hct 30.9 42.0 - 54.0 06/27/2014 [facility] HEMATOLOGY RBC 3.41 4.70 - 6.10 06/27/2014 [facility] HEMATOLOGY Hgb 10.3 14.0 - 18.0 06/27/2014 [facility] HEMATOLOGY WBC 4.9 3.7 - 10.4 06/27/2014 [facility] HEMATOLOGY Eosinophils # 0.1 0.0 - 0.5 06/27/2014 [facility] HEMATOLOGY Basophils # 0.0 0.0 - 0.2 06/27/2014 [facility] HEMATOLOGY Monocytes # 0.4 0.0 - 0.8 06/27/2014 [facility] HEMATOLOGY Lymphocytes # 0.9 1.0 - 5.5 06/27/2014 [facility] HEMATOLOGY Eosinophils 2.4 0.0 - 4.0 06/27/2014 [facility] HEMATOLOGY Monocytes 8.3 2.0 - 12.0 06/27/2014 [facility] HEMATOLOGY Segs 70.0 45.0 - 75.0 06/27/2014 [facility] HEMATOLOGY Lymphocytes 18.9 20.0 - 40.0 06/27/2014 [facility] HEMATOLOGY Segs-Bands # 3.4 1.5 - 8.1 06/27/2014 [facility] HEMATOLOGY Basophils 0.4 0.0 - 1.0 06/27/2014 [facility] TOXICOLOGY Vanco Tr 16.3 06/27/2014 <sup>8</sup>Interpretive Data: Therapeutic Range:
Trough: 10 - 20 ug/mL
Peak: 20 - 40 ug/mL
Potential Toxicity: >80 ug/mL [facility] TOXICOLOGY Vanco Tr TND 1000 06/27/2014 [facility] CHEM PANEL Phosphorus 2.7 2.5 - 4.5 06/26/2014 [facility] HEMATOLOGY Sed Rate >100 mm/hr 0 - 15 06/26/2014 [facility] IMMUNOLOGY C-REACTIVE PROTEIN 249.0 <=2.9 mg/L 06/26/2014 [facility] TOXICOLOGY Salicylate Lvl <1.7 0.0 - 30.0 06/26/2014 [facility] CARDIAC ENZYMES CK MB Index 0.7 0.0 - 2.5 06/25/2014 [facility] CARDIAC ENZYMES CK MB 0.7 0.5 - 3.6 06/25/2014 [facility] CARDIAC ENZYMES Total CK 98 12 - 191 06/25/2014 [facility] CARDIAC ENZYMES Troponin-I <0.02 0.00 - 0.40 06/25/2014 [facility] CHEM PANEL Lipase Lvl 44 73 - 393 06/25/2014 [facility] CHEM PANEL Bili Total 0.3 0.2 - 1.3 06/25/2014 [facility] CHEM PANEL Alk Phos 112 39 - 136 06/25/2014 [facility] CHEM PANEL AST 34 0 - 37 06/25/2014 [facility] CHEM PANEL Globulin 5.0 2.0 - 4.0 06/25/2014 [facility] CHEM PANEL A/G Ratio 0.6 0.7 - 1.6 06/25/2014 [facility] CHEM PANEL B/C Ratio 21 6 - 25 06/25/2014 [facility] CHEM PANEL Total Protein 7.9 6.4 - 8.4 06/25/2014 [facility] CHEM PANEL ALT 34 0 - 65 06/25/2014 [facility] CHEM PANEL Albumin Lvl 2.9 3.5 - 5.0 06/25/2014 [facility] HEMATOLOGY RBC Morph Leeann l (06/25/14 5:55 PM) 06/25/2014 [facility] HEMATOLOGY Plt Morph Leeann l (06/25/14 5:55 PM) 06/25/2014 [facility] HEMATOLOGY Toxic Gran Moder ate *ABN* (06/25/14 5:55 PM) None Seen 06/25/2014 [facility] TOXICOLOGY Etoh (%) <0.003 06/25/2014 <sup>9</sup>Interpretive Data: Ethanol testing results should be used for medical purposes only.
Negative Range: <0.003%
Toxic Range: >0.25% [facility] TOXICOLOGY Ethanol Lvl <3 06/25/2014 <sup>10</sup>Interpretive Data: Negative Range: <3 mg/dL
Toxic Range: >250 mg/dL [facility] DRUG SCREEN UDS Note See Note 7 (06/25/14 4:04 PM) 06/25/2014 <sup>7</sup>Interpretive Jonathon a: Drugs reported as positive have not been confirmed by a second
method and should be used for medical purposes only. To order
confirmation, contact laboratory.

note: Below are cut-off concentrations for all urine drugs of
abuse performed in the laboratory. Some drugs listed in the table
may not be included in this panel.

Description Cut-off concentration

Ampheta mine 1000 ng/mL
Barbiturates 200 ng/mL
Benzodiazepines 300 ng/mL
Cocaine metabolites 300 ng/mL
Opiates 300 ng/mL
Phencyclidine 25 ng/mL
Propoxyphene 300 ng/mL
Marijuana metabolites 50 ng/mL
Methadone 300 ng/mL&lt ;br/>Urine alcohol 20 mg/dL [facility] DRUG SCREEN U Cocaine Scr Nega tive *NA* (06/25/14 4:04 PM) Negative 06/25/2014 [facility] DRUG SCREEN U Opiate Scr Posi tive *ABN* (06/25/14 4:04 PM) Negative 06/25/2014 [facility] DRUG SCREEN U Phencyc Scr Nega tive *NA* (06/25/14 4:04 PM) Negative 06/25/2014 [facility] DRUG SCREEN U Cannab Scr Posi tive *ABN* (06/25/14 4:04 PM) Negative 06/25/2014 [facility] DRUG SCREEN U Chelsie Scr Nega tive *NA* (06/25/14 4:04 PM) Negative 06/25/2014 [facility] DRUG SCREEN U Amph Scr Nega tive *NA* (06/25/14 4:04 PM) Negative 06/25/2014 [facility] DRUG SCREEN U Benzodia Scr Posi tive *ABN* (06/25/14 4:04 PM) Negative 06/25/2014 [facility] URINE AND STOOL UA Mucus Few /LPF None Seen /LPF 06/25/2014 [facility] URINE AND STOOL UA RBC 11-20 /HPF 0 - 2 06/25/2014 [facility] URINE AND STOOL UA Bacteria Moderate /HPF None Seen /HPF 06/25/2014 [facility] URINE AND STOOL UA WBC 21-50 /HPF None Seen /HPF 06/25/2014 [facility] URINE AND STOOL UA Leuk Est Moderate *ABN* (06/25/14 4:04 PM) Negative 06/25/2014 [facility] URINE AND STOOL UA pH 6.0 5.0 - 8.0 06/25/2014 [facility] URINE AND STOOL UA Ketones Negative *NA* (06/25/14 4:04 PM) Negative 06/25/2014 [facility] URINE AND STOOL UA Spec Grav 1.020 <=1.030 06/25/2014 [facility] URINE AND STOOL UA Color Yellow *NA* (06/25/14 4:04 PM) Yellow 06/25/2014 [facility] URINE AND STOOL UA Turbidity Slight Cloudy (06/25/14 4:04 PM) Clear 06/25/2014 [facility] URINE AND STOOL UA Sq Epi Rare /LPF Few /LPF 06/25/2014 [facility] URINE AND STOOL UA Nitrite Positive *ABN* (06/25/14 4:04 PM) Negative 06/25/2014 [facility] URINE AND STOOL UA Urobilinogen 0.2 0.1 - 1.0 06/25/2014 [facility] URINE AND STOOL UA Blood Large *ABN* (06/25/14 4:04 PM) Negative 06/25/2014 [facility] URINE AND STOOL UA Bili Negative *NA* (06/25/14 4:04 PM) Negative 06/25/2014 [facility] URINE AND STOOL UA Protein 100 mg/dL Negative mg/dL 06/25/2014 [facility] URINE AND STOOL UA Glucose Negative (06/25/14 4:04 PM) Negative 06/25/2014 [facility] CHEMISTRY AGAP 12.1 10.0 - 20.0 05/22/2012 Normal [facility] CHEMISTRY eGFR 117 05/22/2012 NA <sup>1</sup>Result Comment: The eGFR is calculated using the CKD-EPI formula. In most young, healthy individuals the eGFR will be >90 mL/min/1.73m2. The eGFR declines with age. An eGFR of 60-89 may be normal in some populations, particularly the elderly, for whom the CKD-EPI formula has not been extensively validated. Use of the eGFR is not recommended in the following populations:& lt;br/>
Individuals with unstable creatinine concentrations, including patients and those with serious co-morbid conditions.

Patients with extremes in muscle mass or diet.

The data above are obtained from the National Kidney Disease Education Program (NKDEP) which additionally recommends that when the eGFR is used in patients with extremes of body mass index for purposes of drug dosing, the eGFR should be multiplied by the estimated BMI. [facility] CHEMISTRY Sodium Lvl 137 135 - 145 05/22/[address] [facility] CHEMISTRY BUN 18 7 - 22 05/22/[address] [facility] CHEMISTRY Glucose Lvl 90 70 - 99 05/22/2012 Normal <sup>4</sup>Interpretive Data: Adult ref erence range values reflect the clinical guidelines
of the [place] [employer]. [facility] CHEMISTRY Chloride Lvl 104 95 - 109 05/22/[address] [facility] CHEMISTRY Potassium Lvl 4.1 3.5 - 5.1 05/22/[address] [facility] CHEMISTRY Calcium Lvl 9.3 8.5 - 10.5 05/22/[address] [facility] CHEMISTRY CO2 25 24 - 32 05/22/[address] [facility] CHEMISTRY Creatinine Lvl 0.9 0.5 - 1.4 05/22/[address] [facility] HEMATOLOGY Monocytes 8.6 2.0 - 12.0 05/22/[address] [facility] HEMATOLOGY Lymphocytes 39.1 20.0 - 40.0 05/22/[address] [facility] HEMATOLOGY Basophils 0.5 0.0 - 1.0 05/22/[address] [facility] HEMATOLOGY Eosinophils 2.5 0.0 - 4.0 05/22/[address] [facility] HEMATOLOGY Segs-Bands # 4.3 1.5 - 8.1 05/22/[address] [facility] HEMATOLOGY Segs 49.3 45.0 - 75.0 05/22/[address] [facility] HEMATOLOGY Basophils # 0.0 0.0 - 0.2 05/22/[address] [facility] HEMATOLOGY Eosinophils # 0.2 0.0 - 0.5 05/22/[address] [facility] HEMATOLOGY Monocytes # 0.8 0.0 - 0.8 05/22/[address] [facility] HEMATOLOGY Lymphocytes # 3.4 1.0 - 5.5 05/22/[address] [facility] HEMATOLOGY Platelet 296 133 - 450 05/22/[address] [facility] HEMATOLOGY MCH 29.4 27.0 - 31.0 05/22/[address] [facility] HEMATOLOGY Hct 41.4 42.0 - 54.0 05/22/[address] [facility] HEMATOLOGY MCV 88.7 80.0 - 94.0 05/22/[address] [facility] HEMATOLOGY MPV 7.9 7.4 - 10.4 05/22/[address] [facility] HEMATOLOGY MCHC 33.2 32.0 - 36.0 05/22/[address] [facility] HEMATOLOGY RDW 15.6 11.5 - 14.5 05/22/[address] [facility] HEMATOLOGY WBC 8.7 3.7 - 10.4 05/22/[address] [facility] HEMATOLOGY Hgb 13.8 14.0 - 18.0 05/22/[address] [facility] HEMATOLOGY RBC 4.67 4.70 - 6.10 05/22/[address] [facility] Microbiology Culture: Urine 05/19/2012 [facility] Microbiology Culture: Blood 05/19/2012 [facility] CHEMISTRY eGFR 117 05/19/2012 NA <sup>2</sup>Result Comment: The eGFR is calculated using the CKD-EPI formula. In most young, healthy individuals the eGFR will be >90 mL/min/1.73m2. The eGFR declines with age. An eGFR of 60-89 may be normal in some populations, particularly the elderly, for whom the CKD-EPI formula has not been extensively validated. Use of the eGFR is not recommended in the following populations:& lt;br/>
Individuals with unstable creatinine concentrations, including patients and those with serious co-morbid conditions.

Patients with extremes in muscle mass or diet.

The data above are obtained from the National Kid[employer] Disease Education Program (NKDEP) which additionally recommends that when the eGFR is used in patients with extremes of body mass index for purposes of drug dosing, the eGFR should be multiplied by the estimated BMI. [facility] CHEMISTRY Sodium Lvl 137 135 - 145 05/19/[address] [facility] CHEMISTRY Potassium Lvl 4.2 3.5 - 5.1 05/19/[address] [facility] CHEMISTRY CO2 25 24 - 32 05/19/[address] [facility] CHEMISTRY Chloride Lvl 103 95 - 109 05/19/[address] [facility] CHEMISTRY Calcium Lvl 9.2 8.5 - 10.5 05/19/[address] [facility] CHEMISTRY Glucose Lvl 89 70 - 99 05/19/2012 Normal <sup>5</sup>Interpretive Data: Adult ref erence range values reflect the clinical guidelines
of the [place] [employer]. [facility] CHEMISTRY BUN 16 7 - 22 05/19/[address] [facility] CHEMISTRY Creatinine Lvl 0.9 0.5 - 1.4 05/19/[address] [facility] CHEMISTRY AGAP 13.2 10.0 - 20.0 05/19/[address] [facility] HEMATOLOGY Segs-Bands # 8.8 1.5 - 8.1 05/19/2012 [facility] HEMATOLOGY Basophils # 0.0 0.0 - 0.2 05/19/[address] [facility] HEMATOLOGY Eosinophils # 0.2 0.0 - 0.5 05/19/[address] [facility] HEMATOLOGY Monocytes # 1.0 0.0 - 0.8 05/19/2012 [facility] HEMATOLOGY Lymphocytes # 2.6 1.0 - 5.5 05/19/[address] [facility] HEMATOLOGY Lymphocytes 20.6 20.0 - 40.0 05/19/[address] [facility] HEMATOLOGY Monocytes 8.0 2.0 - 12.0 05/19/[address] [facility] HEMATOLOGY Basophils 0.4 0.0 - 1.0 05/19/[address] [facility] HEMATOLOGY Segs 69.2 45.0 - 75.0 05/19/[address] [facility] HEMATOLOGY Eosinophils 1.8 0.0 - 4.0 05/19/[address] [facility] HEMATOLOGY Hct 43.4 42.0 - 54.0 05/19/[address] [facility] HEMATOLOGY MCH 29.8 27.0 - 31.0 05/19/[address] [facility] HEMATOLOGY RDW 16.1 11.5 - 14.5 05/19/[address] [facility] HEMATOLOGY MCHC 33.5 32.0 - 36.0 05/19/[address] [facility] HEMATOLOGY Platelet 276 133 - 450 05/19/[address] [facility] HEMATOLOGY MCV 88.9 80.0 - 94.0 05/19/[address] [facility] HEMATOLOGY MPV 8.3 7.4 - 10.4 05/19/[address] [facility] HEMATOLOGY Hgb 14.5 14.0 - 18.0 05/19/[address] [facility] HEMATOLOGY RBC 4.88 4.70 - 6.10 05/19/[address] [facility] HEMATOLOGY WBC 12.8 3.7 - 10.4 05/19/[address] [facility] Microbiology Culture: Blood 05/19/2012 [facility] Microbiology Culture: Wound/Abscess w/Gram Stain 05/16/2012 [facility] URINALYSIS UA Bacteria Moder ate /HPF (05/15/2012 14:43:00) None S een 05/15/[address] [facility] URINALYSIS UA Amorph Michelle Few / HPF *ABN* (05/15/2012 14:43:00) None S een 05/15/[address] [facility] URINALYSIS UA Mucus Moder ate /LPF *ABN* (05/15/2012 14:43:00) None S een 05/15/[address] [facility] URINALYSIS UA Sq Epi Rare /LPF (05/15/2012 14:43:00) Few 05/15/[address] [facility] URINALYSIS UA WBC Packe d *ABN* (05/15/2012 14:43:00) None S een 05/15/[address] [facility] URINALYSIS UA RBC 3-5 / HPF *ABN* (05/15/2012 14:43:00) 0 - 2 05/15/[address] [facility] URINALYSIS UA Protein 100 m g/dL *ABN* (05/15/2012 14:43:00) Negati ve 05/15/[address] [facility] URINALYSIS UA Glucose Negat pavel (05/15/2012 14:43:00) Negati ve 05/15/[address] [facility] URINALYSIS UA Nitrite Posit pavel *ABN* (05/15/2012 14:43:00) Negati ve 05/15/[address] [facility] URINALYSIS UA Urobilinogen 0.2 0.1 - 1.0 05/15/[address] [facility] URINALYSIS UA Leuk Est Large *ABN* (05/15/2012 14:43:00) Negati ve 05/15/2012 ABN [facility] URINALYSIS UA pH 7.5 5.0 - 8.0 05/15/[address] [facility] URINALYSIS UA Color Yello w *NA* (05/15/2012 14:43:00) Yellow 05/15/[address] [facility] URINALYSIS UA Turbidity Clear (05/15/2012 14:43:00) Clear 05/15/[address] [facility] URINALYSIS UA Spec Grav 1.020 <=1.030 05/15/[address] [facility] URINALYSIS UA Ketones Negat pavel *NA* (05/15/2012 14:43:00) Negati ve 05/15/[address] [facility] URINALYSIS UA Bili Negat pavel *NA* (05/15/2012 14:43:00) Negati ve 05/15/[address] [facility] URINALYSIS UA Blood Small *ABN* (05/15/2012 14:43:00) Negati ve 05/15/[address] [facility] Microbiology Culture: Urine 05/15/2012 [facility] CHEMISTRY eGFR 117 05/15/2012 NA <sup>3</sup>Result Comment: The eGFR is calculated using the CKD-EPI formula. In most young, healthy individuals the eGFR will be >90 mL/min/1.73m2. The eGFR declines with age. An eGFR of 60-89 may be normal in some populations, particularly the elderly, for whom the CKD-EPI formula has not been extensively validated. Use of the eGFR is not recommended in the following populations:& lt;br/>
Individuals with unstable creatinine concentrations, including patients and those with serious co-morbid conditions.

Patients with extremes in muscle mass or diet.

The data above are obtained from the National Kidney Disease Education Program (NKDEP) which additionally recommends that when the eGFR is used in patients with extremes of body mass index for purposes of drug dosing, the eGFR should be multiplied by the estimated BMI. [facility] CHEMISTRY Calcium Lvl 9.5 8.5 - 10.5 05/15/[address] [facility] CHEMISTRY Creatinine Lvl 0.9 0.5 - 1.4 05/15/[address] [facility] CHEMISTRY Sodium Lvl 143 135 - 145 05/15/[address] [facility] CHEMISTRY Potassium Lvl 3.6 3.5 - 5.1 05/15/[address] [facility] CHEMISTRY Chloride Lvl 106 95 - 109 05/15/[address] [facility] CHEMISTRY CO2 27 24 - 32 05/15/[address] [facility] CHEMISTRY BUN 17 7 - 22 05/15/[address] [facility] CHEMISTRY Glucose Lvl 96 70 - 99 05/15/2012 Normal <sup>6</sup>Interpretive Data: Adult ref erence range values reflect the clinical guidelines
of the [place] [employer]. [facility] CHEMISTRY AGAP 13.6 10.0 - 20.0 05/15/[address] [facility] HEMATOLOGY MCH 29.8 27.0 - 31.0 05/15/[address] [facility] HEMATOLOGY MCV 89.7 80.0 - 94.0 05/15/[address] [facility] HEMATOLOGY MCHC 33.2 32.0 - 36.0 05/15/[address] [facility] HEMATOLOGY Hct 44.0 42.0 - 54.0 05/15/[address] [facility] HEMATOLOGY Hgb 14.6 14.0 - 18.0 05/15/[address] [facility] HEMATOLOGY RBC 4.90 4.70 - 6.10 05/15/[address] [facility] HEMATOLOGY WBC 9.6 3.7 - 10.4 05/15/[address] [facility] HEMATOLOGY MPV 8.0 7.4 - 10.4 05/15/[address] [facility] HEMATOLOGY RDW 16.1 11.5 - 14.5 05/15/2012 HI [facility] HEMATOLOGY Platelet 314 133 - 450 05/15/[address] [facility] HEMATOLOGY Segs 70.1 45.0 - 75.0 05/15/[address] [facility] HEMATOLOGY Lymphocytes 21.9 20.0 - 40.0 05/15/[address] [facility] HEMATOLOGY Basophils 0.5 0.0 - 1.0 05/15/[address] [facility] HEMATOLOGY Eosinophils 0.4 0.0 - 4.0 05/15/[address] [facility] HEMATOLOGY Monocytes 7.1 2.0 - 12.0 05/15/[address] [facility] HEMATOLOGY Monocytes # 0.7 0.0 - 0.8 05/15/[address] [facility] HEMATOLOGY Segs-Bands # 6.7 1.5 - 8.1 05/15/[address] [facility] HEMATOLOGY Lymphocytes # 2.1 1.0 - 5.5 05/15/[address] [facility] HEMATOLOGY Eosinophils # 0.0 0.0 - 0.5 05/15/[address] [facility] HEMATOLOGY Basophils # 0.1 0.0 - 0.2 05/15/[address] [facility] Microbiology Culture: Urine 02/24/2012 [facility] Microbiology Culture: Urine 02/24/2012 [facility] CHEMISTRY AGAP 12.0 10.0 - 20.0 02/22/2012 Normal [facility] CHEMISTRY Glucose Lvl 91 70 - 99 02/22/2012 Normal <sup>1</sup>Interpretive Data: Adult ref erence range values reflect the clinical guidelines
of the [place] [employer]. [facility] CHEMISTRY Chloride Lvl 107 95 - 109 02/22/2012 Normal [facility] CHEMISTRY Potassium Lvl 4.0 3.5 - 5.1 02/22/2012 Normal [facility] CHEMISTRY Sodium Lvl 143 135 - 145 02/22/2012 Normal [facility] CHEMISTRY Creatinine Lvl 0.7 0.5 - 1.4 02/22/2012 Normal [facility] CHEMISTRY BUN 15 7 - 22 02/22/2012 Normal [facility] CHEMISTRY Calcium Lvl 8.8 8.5 - 10.5 02/22/2012 Normal [facility] CHEMISTRY CO2 28 24 - 32 02/22/2012 Normal [facility] HEMATOLOGY RDW 15.3 11.5 - 14.5 02/22/2012 [facility] HEMATOLOGY Platelet 231 133 - 450 02/22/2012 Normal [facility] HEMATOLOGY MPV 7.9 7.4 - 10.4 02/22/2012 Normal [facility] HEMATOLOGY Hct 34.8 42.0 - 54.0 02/22/2012 LOW [facility] HEMATOLOGY Hgb 12.0 14.0 - 18.0 02/22/2012 LOW [facility] HEMATOLOGY MCH 32.2 27.0 - 31.0 02/22/2012 [facility] HEMATOLOGY MCV 93.0 80.0 - 94.0 02/22/2012 Normal [facility] HEMATOLOGY MCHC 34.6 32.0 - 36.0 02/22/2012 Normal [facility] HEMATOLOGY RBC 3.74 4.70 - 6.10 02/22/2012 [facility] HEMATOLOGY WBC 6.7 3.7 - 10.4 02/22/2012 Normal [facility] HEMATOLOGY Eosinophils # 0.1 0.0 - 0.5 02/22/2012 Normal [facility] HEMATOLOGY Lymphocytes # 3.1 1.0 - 5.5 02/22/2012 Normal [facility] HEMATOLOGY Monocytes # 0.5 0.0 - 0.8 02/22/2012 Normal [facility] HEMATOLOGY Segs-Bands # 2.9 1.5 - 8.1 02/22/2012 Normal [facility] HEMATOLOGY Eosinophils 2.2 0.0 - 4.0 02/22/2012 Normal [facility] HEMATOLOGY Basophils 0.5 0.0 - 1.0 02/22/2012 Normal [facility] HEMATOLOGY Monocytes 7.3 2.0 - 12.0 02/22/2012 Normal [facility] HEMATOLOGY Basophils # 0.0 0.0 - 0.2 02/22/2012 Normal [facility] HEMATOLOGY Segs 43.9 45.0 - 75.0 02/22/2012 [facility] HEMATOLOGY Lymphocytes 46.1 20.0 - 40.0 02/22/2012 [facility] CHEMISTRY Globulin 3.3 2.0 - 4.0 02/17/2012 Normal [facility] CHEMISTRY A/G Ratio 0.9 0.7 - 1.6 02/17/2012 Normal [facility] CHEMISTRY B/C Ratio 27 6 - 25 02/17/2012 [facility] CHEMISTRY AGAP 11.2 10.0 - 20.0 02/17/2012 Normal [facility] CHEMISTRY Alk Phos 93 39 - 136 02/17/2012 Normal [facility] CHEMISTRY Bili Total 0.1 0.2 - 1.3 02/17/2012 [facility] CHEMISTRY Total Protein 6.2 6.4 - 8.4 02/17/2012 [facility] CHEMISTRY Albumin Lvl 2.9 3.5 - 5.0 02/17/2012 [facility] CHEMISTRY ALT 57 0 - 65 02/17/2012 Normal [facility] CHEMISTRY Chloride Lvl 103 95 - 109 02/17/2012 Normal [facility] CHEMISTRY CO2 31 24 - 32 02/17/2012 Normal [facility] CHEMISTRY Calcium Lvl 8.8 8.5 - 10.5 02/17/2012 Normal [facility] CHEMISTRY AST 32 0 - 37 02/17/2012 Normal [facility] CHEMISTRY Glucose Lvl 90 70 - 99 02/17/2012 Normal <sup>2</sup>Interpretive Data: Adult ref erence range values reflect the clinical guidelines
of the [place] [employer]. [facility] CHEMISTRY BUN 16 7 - 22 02/17/2012 Normal [facility] CHEMISTRY Creatinine Lvl 0.6 0.5 - 1.4 02/17/2012 Normal [facility] CHEMISTRY Potassium Lvl 4.2 3.5 - 5.1 02/17/2012 Normal [facility] CHEMISTRY Sodium Lvl 141 135 - 145 02/17/2012 Normal [facility] HEMATOLOGY Basophils 0.7 0.0 - 1.0 02/17/2012 Normal [facility] HEMATOLOGY Eosinophils 4.8 0.0 - 4.0 02/17/2012 [facility] HEMATOLOGY Monocytes 9.0 2.0 - 12.0 02/17/2012 Normal [facility] HEMATOLOGY Segs-Bands # 2.0 1.5 - 8.1 02/17/2012 Normal [facility] HEMATOLOGY Segs 34.8 45.0 - 75.0 02/17/2012 LOW [facility] HEMATOLOGY Lymphocytes 50.7 20.0 - 40.0 02/17/2012 [facility] HEMATOLOGY Eosinophils # 0.3 0.0 - 0.5 02/17/2012 Normal [facility] HEMATOLOGY Lymphocytes # 3.0 1.0 - 5.5 02/17/2012 Normal [facility] HEMATOLOGY Monocytes # 0.5 0.0 - 0.8 02/17/2012 Normal [facility] HEMATOLOGY Basophils # 0.0 0.0 - 0.2 02/17/2012 Normal [facility] HEMATOLOGY RBC 3.74 4.70 - 6.10 02/17/2012 LOW [facility] HEMATOLOGY MCHC 35.1 32.0 - 36.0 02/17/2012 Normal [facility] HEMATOLOGY Hct 34.5 42.0 - 54.0 02/17/2012 [facility] HEMATOLOGY MPV 8.1 7.4 - 10.4 02/17/2012 Normal [facility] HEMATOLOGY Hgb 12.1 14.0 - 18.0 02/17/2012 [facility] HEMATOLOGY MCV 92.2 80.0 - 94.0 02/17/2012 Normal [facility] HEMATOLOGY WBC 5.9 3.7 - 10.4 02/17/2012 Normal [facility] HEMATOLOGY RDW 14.1 11.5 - 14.5 02/17/2012 Normal [facility] HEMATOLOGY Platelet 210 133 - 450 02/17/2012 Normal [facility] HEMATOLOGY MCH 32.4 27.0 - 31.0 02/17/2012 HI [facility] URINALYSIS UA Bacteria Many /HPF (02/11/2012 16:03:00) None S een 02/11/2012 Normal [facility] URINALYSIS UA Amorph Michelle Few / HPF *ABN* (02/11/2012 16:03:00) None S een 02/11/2012 ABN [facility] URINALYSIS UA WBC 21-50 /HPF *ABN* (02/11/2012 16:03:00) None S een 02/11/2012 ABN [facility] URINALYSIS UA RBC 11-20 /HPF *ABN* (02/11/2012 16:03:00) 0 - 2 02/11/2012 ABN [facility] URINALYSIS UA Sq Epi Occas ional /LPF (02/11/2012 16:03:00) Few 02/11/2012 Normal [facility] URINALYSIS Micro? Perfo rmed (02/11/2012 16:03:00) 02/11/2012 Normal [facility] URINALYSIS UA pH 6.5 5.0 - 8.0 02/11/2012 Normal [facility] URINALYSIS UA Spec Grav 1.020 <=1.030 02/11/2012 Normal [facility] URINALYSIS UA Blood Large *ABN* (02/11/2012 16:03:00) Negati ve 02/11/2012 ABN [facility] URINALYSIS UA Bili Negat pavel *NA* (02/11/2012 16:03:00) Negati ve 02/11/2012 NA [facility] URINALYSIS UA Ketones Negat pavel *NA* (02/11/2012 16:03:00) Negati ve 02/11/2012 NA [facility] URINALYSIS UA Glucose Negat pavel (02/11/2012 16:03:00) Negati ve 02/11/2012 Normal [facility] URINALYSIS UA Protein 100 m g/dL *ABN* (02/11/2012 16:03:00) Negati ve 02/11/2012 ABN [facility] URINALYSIS UA Turbidity Sligh t Cloudy (02/11/2012 16:03:00) Clear 02/11/2012 Normal [facility] URINALYSIS UA Leuk Est Large *ABN* (02/11/2012 16:03:00) Negati ve 02/11/2012 ABN [facility] URINALYSIS UA Nitrite Posit pavel *ABN* (02/11/2012 16:03:00) Negati ve 02/11/2012 ABN [facility] URINALYSIS UA Urobilinogen 0.2 0.1 - 1.0 02/11/2012 Normal [facility] URINALYSIS UA Color Yello w *NA* (02/11/2012 16:03:00) Yellow 02/11/2012 NA [facility] Microbiology Culture: Urine 02/11/2012 [facility] CHEMISTRY AGAP 12.7 10.0 - 20.0 02/11/2012 Normal [facility] CHEMISTRY CO2 25 24 - 32 02/11/2012 Normal [facility] CHEMISTRY Chloride Lvl 104 95 - 109 02/11/2012 Normal [facility] CHEMISTRY Potassium Lvl 3.7 3.5 - 5.1 02/11/2012 Normal [facility] CHEMISTRY Creatinine Lvl 0.7 0.5 - 1.4 02/11/2012 Normal [facility] CHEMISTRY Sodium Lvl 138 135 - 145 02/11/2012 Normal [facility] CHEMISTRY BUN 11 7 - 22 02/11/2012 Normal [facility] CHEMISTRY Glucose Lvl 81 70 - 99 02/11/2012 Normal <sup>3</sup>Interpretive Data: Adult ref erence range values reflect the clinical guidelines
of the [place] [employer]. [facility] CHEMISTRY Calcium Lvl 9.3 8.5 - 10.5 02/11/2012 Normal [facility] HEMATOLOGY Basophils # 0.0 0.0 - 0.2 02/11/2012 Normal [facility] HEMATOLOGY Eosinophils # 0.1 0.0 - 0.5 02/11/2012 Normal [facility] HEMATOLOGY Monocytes # 0.6 0.0 - 0.8 02/11/2012 Normal [facility] HEMATOLOGY Lymphocytes # 1.5 1.0 - 5.5 02/11/2012 Normal [facility] HEMATOLOGY Basophils 0.2 0.0 - 1.0 02/11/2012 Normal [facility] HEMATOLOGY Segs-Bands # 11.6 1.5 - 8.1 02/11/2012 HI [facility] HEMATOLOGY Monocytes 4.1 2.0 - 12.0 02/11/2012 Normal [facility] HEMATOLOGY Eosinophils 0.8 0.0 - 4.0 02/11/2012 Normal [facility] HEMATOLOGY Segs 83.9 45.0 - 75.0 02/11/2012 [facility] HEMATOLOGY Lymphocytes 11.0 20.0 - 40.0 02/11/2012 [facility] HEMATOLOGY Platelet 209 133 - 450 02/11/2012 Normal [facility] HEMATOLOGY MPV 8.2 7.4 - 10.4 02/11/2012 [facility] HEMATOLOGY MCHC 33.8 32.0 - 36.0 02/11/2012 [facility] HEMATOLOGY RDW 15.1 11.5 - 14.5 02/11/2012 [facility] HEMATOLOGY MCH 31.5 27.0 - 31.0 02/11/2012 [facility] HEMATOLOGY RBC 4.24 4.70 - 6.10 02/11/2012 [facility] HEMATOLOGY WBC 13.8 3.7 - 10.4 02/11/2012 [facility] HEMATOLOGY Hct 39.5 42.0 - 54.0 02/11/2012 [facility] HEMATOLOGY MCV 93.0 80.0 - 94.0 02/11/2012 [facility] HEMATOLOGY Hgb 13.3 14.0 - 18.0 02/11/2012 [facility] Microbiology Culture: Blood 01/02/2012 [facility] Microbiology Culture: Blood 01/01/2012 [facility] HEMATOLOGY Basophils 0.1 0.0 - 1.0 01/01/2012 Normal [facility] HEMATOLOGY Eosinophils 0.1 0.0 - 4.0 01/01/2012 Normal [facility] HEMATOLOGY Lymphocytes 23.9 20.0 - 40.0 01/01/2012 [facility] HEMATOLOGY Segs 65.9 45.0 - 75.0 01/01/2012 Normal [facility] HEMATOLOGY Monocytes 10.0 2.0 - 12.0 01/01/2012 [facility] HEMATOLOGY Lymphocytes # 2.0 1.0 - 5.5 01/01/2012 [facility] HEMATOLOGY Segs-Bands # 5.4 1.5 - 8.1 01/01/2012 Normal [facility] HEMATOLOGY Monocytes # 0.8 0.0 - 0.8 01/01/2012 Normal [facility] HEMATOLOGY Eosinophils # 0.0 0.0 - 0.5 01/01/2012 Normal [facility] HEMATOLOGY Basophils # 0.0 0.0 - 0.2 01/01/2012 Normal [facility] HEMATOLOGY INR 0.98 0.85 - 1.17 01/01/2012 Normal <sup>2</sup>Interpretive Data: RECOMMEND ED RANGES FOR PROTIME INR: 2.0-3.0 for most medical and surgical thromboembolic states. 2.5-3.5 for artificial heart valves and recurrent embolism. INR SHOULD BE USED ONLY FOR PATIENTS ON STABLE ANTICOAGULANT THERAPY. [facility] HEMATOLOGY PT 13.0 12.0 - 14.7 01/01/2012 Normal [facility] HEMATOLOGY PTT 27.9 22.9 - 35.8 01/01/2012 Normal <sup>3</sup>Interpretive Data: Heparin T herapeutic Range: 57 - 92 Seconds [facility] HEMATOLOGY MCV 91.7 80.0 - 94.0 01/01/2012 Normal [facility] HEMATOLOGY MPV 8.0 7.4 - 10.4 01/01/2012 Normal [facility] HEMATOLOGY RDW 14.5 11.5 - 14.5 01/01/2012 Normal [facility] HEMATOLOGY Platelet 256 133 - 450 01/01/2012 Normal [facility] HEMATOLOGY MCHC 34.1 32.0 - 36.0 01/01/2012 Normal [facility] HEMATOLOGY MCH 31.3 27.0 - 31.0 01/01/2012 HI [facility] HEMATOLOGY Hgb 14.2 14.0 - 18.0 01/01/2012 Normal [facility] HEMATOLOGY Hct 41.6 42.0 - 54.0 01/01/2012 LOW [facility] HEMATOLOGY RBC 4.54 4.70 - 6.10 01/01/2012 LOW [facility] HEMATOLOGY WBC 8.2 3.7 - 10.4 01/01/2012 Normal [facility] CHEMISTRY AGAP 13.1 10.0 - 20.0 01/01/2012 Normal [facility] CHEMISTRY Calcium Lvl 8.6 8.5 - 10.5 01/01/2012 Normal [facility] CHEMISTRY Sodium Lvl 142 135 - 145 01/01/2012 Normal [facility] CHEMISTRY Potassium Lvl 4.1 3.5 - 5.1 01/01/2012 Normal [facility] CHEMISTRY BUN 8 7 - 22 01/01/2012 Normal [facility] CHEMISTRY Creatinine Lvl 0.8 0.5 - 1.4 01/01/2012 Normal [facility] CHEMISTRY Glucose Lvl 87 70 - 99 01/01/2012 Normal <sup>1</sup>Interpretive Data: Adult ref erence range values reflect the clinical guidelines of the [place] [employer]. [facility] CHEMISTRY CO2 24 24 - 32 01/01/2012 Normal [facility] CHEMISTRY Chloride Lvl 109 95 - 109 01/01/2012 Normal [facility] HEMATOLOGY PTT 28.5 22.9 - 35.8 12/26/2011 Normal <sup>4</sup>Interpretive Data: Heparin T herapeutic Range: 57 - 92 Seconds [facility] HEMATOLOGY INR 0.92 0.85 - 1.17 12/26/2011 Normal <sup>3</sup>Interpretive Data: RECOMMEND ED RANGES FOR PROTIME INR: 2.0-3.0 for most medical and surgical thromboembolic states. 2.5-3.5 for artificial heart valves and recurrent embolism. INR SHOULD BE USED ONLY FOR PATIENTS ON STABLE ANTICOAGULANT THERAPY. [facility] HEMATOLOGY PT 12.4 12.0 - 14.7 12/26/2011 Normal [facility] CHEMISTRY Calcium Lvl 8.9 8.5 - 10.5 12/24/2011 Normal [facility] CHEMISTRY CO2 22 24 - 32 12/24/2011 LOW [facility] CHEMISTRY Chloride Lvl 108 95 - 109 12/24/2011 Normal [facility] CHEMISTRY Sodium Lvl 140 135 - 145 12/24/2011 Normal [facility] CHEMISTRY Glucose Lvl 76 70 - 99 12/24/2011 Normal <sup>1</sup>Interpretive Data: Adult ref erence range values reflect the clinical guidelines of the [place] [employer]. [facility] CHEMISTRY Potassium Lvl 3.5 3.5 - 5.1 12/24/2011 Normal [facility] CHEMISTRY Creatinine Lvl 0.6 0.5 - 1.4 12/24/2011 Normal [facility] CHEMISTRY BUN 10 7 - 22 12/24/2011 Normal [facility] CHEMISTRY AGAP 13.5 10.0 - 20.0 12/24/2011 Normal [facility] HEMATOLOGY Eosinophils 2.3 0.0 - 4.0 12/24/2011 Normal [facility] HEMATOLOGY Lymphocytes 34.9 20.0 - 40.0 12/24/2011 Normal [facility] HEMATOLOGY Monocytes 7.6 2.0 - 12.0 12/24/2011 Normal [facility] HEMATOLOGY Segs 54.9 45.0 - 75.0 12/24/2011 Normal [facility] HEMATOLOGY Basophils 0.3 0.0 - 1.0 12/24/2011 Normal [facility] HEMATOLOGY Lymphocytes # 2.1 1.0 - 5.5 12/24/2011 Normal [facility] HEMATOLOGY Segs-Bands # 3.3 1.5 - 8.1 12/24/2011 Normal [facility] HEMATOLOGY Monocytes # 0.5 0.0 - 0.8 12/24/2011 Normal [facility] HEMATOLOGY Eosinophils # 0.1 0.0 - 0.5 12/24/2011 Normal [facility] HEMATOLOGY Basophils # 0.0 0.0 - 0.2 12/24/2011 Normal [facility] HEMATOLOGY Plt Morph Leeann l (12/24/2011 03:00:00) 12/24/2011 Normal [facility] HEMATOLOGY RBC Morph Leeann l (12/24/2011 03:00:00) 12/24/2011 Normal [facility] HEMATOLOGY MPV 8.8 7.4 - 10.4 12/24/2011 Normal [facility] HEMATOLOGY Platelet 199 133 - 450 12/24/2011 [facility] HEMATOLOGY MCH 31.9 27.0 - 31.0 12/24/2011 [facility] HEMATOLOGY RDW 14.7 11.5 - 14.5 12/24/2011 [facility] HEMATOLOGY MCHC 34.4 32.0 - 36.0 12/24/2011 Normal [facility] HEMATOLOGY MCV 92.6 80.0 - 94.0 12/24/2011 Normal [facility] HEMATOLOGY Hct 34.8 42.0 - 54.0 12/24/2011 LOW [facility] HEMATOLOGY Hgb 12.0 14.0 - 18.0 12/24/2011 [facility] HEMATOLOGY WBC 6.0 3.7 - 10.4 12/24/2011 [facility] HEMATOLOGY RBC 3.76 4.70 - 6.10 12/24/2011 [facility] URINALYSIS UA Urobilinogen 0.1 - 1.0 12/23/2011 NA [facility] URINALYSIS UA Ketones 2 12/23/2011 [facility] URINALYSIS UA Sq Epi None Seen 12/23/2011 [facility] URINALYSIS UA Leuk Est Large *ABN* (12/22/2011 23:25:00) Negati ve 12/23/2011 ABN [facility] URINALYSIS UA WBC >182 0 - 5 12/23/2011 [facility] URINALYSIS UA RBC >182 0 - 2 12/23/2011 [facility] URINALYSIS UA Bacteria Occas ional /HPF *NA* (12/22/2011 23:25:00) None S een 12/23/2011 NA [facility] URINALYSIS UA Mucus Few / LPF *NA* (12/22/2011 23:25:00) None S een 12/23/2011 NA [facility] URINALYSIS UA Color Red *ABN* (12/22/2011 23:25:00) Yellow 12/23/2011 ABN [facility] URINALYSIS UA Spec Grav 1.046 <=1.030 12/23/2011 HI [facility] URINALYSIS UA Turbidity Marke d *ABN* (12/22/2011 23:25:00) Clear 12/23/2011 ABN [facility] URINALYSIS UA pH 6.0 5.0 - 8.0 12/23/2011 Normal [facility] URINALYSIS UA Protein 200 m g/dL *ABN* (12/22/2011 23:25:00) Negati ve 12/23/2011 ABN [facility] URINALYSIS UA Clay Yeast Few / HPF *ABN* (12/22/2011 23:25:00) None S een 12/23/2011 ABN [facility] URINALYSIS UA Glucose Negat pavel mg/dL *NA* (12/22/2011 23:25:00) Negati ve 12/23/2011 NA [facility] URINALYSIS UA Bili Negat pavel *NA* (12/22/2011 23:25:00) Negati ve 12/23/2011 NA [facility] URINALYSIS UA Blood Large *ABN* (12/22/2011 23:25:00) Negati ve 12/23/2011 ABN [facility] URINALYSIS UA Nitrite Negat pavel (12/22/2011 23:25:00) Negati ve 12/23/2011 Normal [facility] URINALYSIS Micro? Perfo rmed (12/22/2011 23:25:00) 12/23/2011 Normal [facility] Microbiology Culture: Urine 12/23/2011 [facility] CHEMISTRY A/G Ratio 0.8 0.7 - 1.6 12/23/2011 Normal [facility] CHEMISTRY B/C Ratio 18 6 - 25 12/23/2011 Normal [facility] CHEMISTRY Globulin 4.4 2.0 - 4.0 12/23/2011 HI [facility] CHEMISTRY AGAP 13.6 10.0 - 20.0 12/23/2011 Normal [facility] CHEMISTRY Chloride Lvl 105 95 - 109 12/23/2011 Normal [facility] CHEMISTRY CO2 24 24 - 32 12/23/2011 Normal [facility] CHEMISTRY Calcium Lvl 9.3 8.5 - 10.5 12/23/2011 Normal [facility] CHEMISTRY Total Protein 8.1 6.4 - 8.4 12/23/2011 Normal [facility] CHEMISTRY Bili Total 0.2 0.2 - 1.3 12/23/2011 Normal [facility] CHEMISTRY AST 14 0 - 37 12/23/2011 Normal [facility] CHEMISTRY Sodium Lvl 139 135 - 145 12/23/2011 Normal [facility] CHEMISTRY Potassium Lvl 3.6 3.5 - 5.1 12/23/2011 Normal [facility] CHEMISTRY Albumin Lvl 3.7 3.5 - 5.0 12/23/2011 Normal [facility] CHEMISTRY ALT 18 0 - 65 12/23/2011 Normal [facility] CHEMISTRY Alk Phos 78 39 - 136 12/23/2011 Normal [facility] CHEMISTRY Glucose Lvl 95 70 - 99 12/23/2011 Normal <sup>2</sup>Interpretive Data: Adult ref erence range values reflect the clinical guidelines of the [employer]. [facility] CHEMISTRY BUN 14 7 - 22 12/23/2011 Normal [facility] CHEMISTRY Creatinine Lvl 0.8 0.5 - 1.4 12/23/2011 Normal [facility] CHEMISTRY Lipase Lvl 40 73 - 393 12/23/2011 LOW [facility] CHEMISTRY Amylase Lvl 31 25 - 115 12/23/2011 Normal [facility] HEMATOLOGY RDW 14.7 11.5 - 14.5 12/23/2011 [facility] HEMATOLOGY MCHC 34.3 32.0 - 36.0 12/23/2011 Normal [facility] HEMATOLOGY RBC 4.40 4.70 - 6.10 12/23/2011 [facility] HEMATOLOGY MCH 31.5 27.0 - 31.0 12/23/2011 [facility] HEMATOLOGY Hgb 13.9 14.0 - 18.0 12/23/2011 [facility] HEMATOLOGY WBC 9.2 3.7 - 10.4 12/23/2011 Normal [facility] HEMATOLOGY MPV 8.3 7.4 - 10.4 12/23/2011 Normal [facility] HEMATOLOGY Platelet 299 133 - 450 12/23/2011 Normal [facility] HEMATOLOGY Hct 40.5 42.0 - 54.0 12/23/2011 LOW [facility] HEMATOLOGY MCV 92.1 80.0 - 94.0 12/23/2011 Normal [facility] HEMATOLOGY Monocytes # 0.6 0.0 - 0.8 12/23/2011 Normal [facility] HEMATOLOGY Lymphocytes 39.3 20.0 - 40.0 12/23/2011 Normal [facility] HEMATOLOGY Segs 51.4 45.0 - 75.0 12/23/2011 Normal [facility] HEMATOLOGY Monocytes 6.9 2.0 - 12.0 12/23/2011 Normal [facility] HEMATOLOGY Eosinophils 1.9 0.0 - 4.0 12/23/2011 Normal [facility] HEMATOLOGY Eosinophils # 0.2 0.0 - 0.5 12/23/2011 [facility] HEMATOLOGY Basophils # 0.0 0.0 - 0.2 12/23/2011 [facility] HEMATOLOGY Basophils 0.5 0.0 - 1.0 12/23/2011 [facility] HEMATOLOGY Segs-Bands # 4.7 1.5 - 8.1 12/23/2011 [facility] HEMATOLOGY Lymphocytes # 3.6 1.0 - 5.5 12/23/2011 [facility] BACTERIAL - SEROLOGY C diff Toxin Negative (12/07/2011 06:10:00) 12/07/2011 [facility] Microbiology Culture: Stool 12/07/2011 [facility] CHEMISTRY eGFR >60 12/07/2011 NA <sup>1</sup>Result Comment: Expected eGFR for >20 yr. age group: >=60 ml/min/1.73 sq m The eGFR calculation is not valid in or for persons < 18 years of age. From National Kid[employer] Disease Education Program (NKDEP) [facility] CHEMISTRY Glucose Lvl 106 70 - 99 12/07/2011 [place] <sup>3</sup>Interpretive Data: Adult ref erence range values reflect the clinical guidelines of the [place] [employer]. [facility] CHEMISTRY Creatinine Lvl 0.7 0.5 - 1.4 12/07/2011 Normal [facility] CHEMISTRY Sodium Lvl 142 135 - 145 12/07/2011 Normal [facility] CHEMISTRY BUN 8 7 - 22 12/07/2011 [facility] CHEMISTRY Potassium Lvl 3.7 3.5 - 5.1 12/07/2011 [facility] CHEMISTRY Chloride Lvl 108 95 - 109 12/07/2011 [facility] CHEMISTRY AGAP 12.7 10.0 - 20.0 12/07/2011 [facility] CHEMISTRY CO2 25 24 - 32 12/07/2011 [facility] CHEMISTRY Calcium Lvl 8.6 8.5 - 10.5 12/07/2011 [facility] HEMATOLOGY Segs 43.1 45.0 - 75.0 12/07/2011 [facility] HEMATOLOGY Lymphocytes 41.8 20.0 - 40.0 12/07/2011 [facility] HEMATOLOGY Lymphocytes # 2.3 1.0 - 5.5 12/07/2011 [facility] HEMATOLOGY Eosinophils 5.5 0.0 - 4.0 12/07/2011 [facility] HEMATOLOGY Monocytes # 0.5 0.0 - 0.8 12/07/2011 [facility] HEMATOLOGY Eosinophils # 0.3 0.0 - 0.5 12/07/2011 [facility] HEMATOLOGY Segs-Bands # 2.4 1.5 - 8.1 12/07/2011 [facility] HEMATOLOGY Basophils 0.8 0.0 - 1.0 12/07/2011 [facility] HEMATOLOGY Monocytes 8.8 2.0 - 12.0 12/07/2011 [facility] HEMATOLOGY MCH 31.0 27.0 - 31.0 12/07/2011 [facility] HEMATOLOGY RDW 15.0 11.5 - 14.5 12/07/2011 [facility] HEMATOLOGY MCHC 33.5 32.0 - 36.0 12/07/2011 [facility] HEMATOLOGY MPV 8.3 7.4 - 10.4 12/07/2011 [facility] HEMATOLOGY Platelet 195 133 - 450 12/07/2011 [facility] HEMATOLOGY MCV 92.6 80.0 - 94.0 12/07/2011 [facility] HEMATOLOGY Hct 35.4 42.0 - 54.0 12/07/2011 [facility] HEMATOLOGY Hgb 11.8 14.0 - 18.0 12/07/2011 [facility] HEMATOLOGY RBC 3.82 4.70 - 6.10 12/07/2011 [facility] HEMATOLOGY WBC 5.5 3.7 - 10.4 12/07/2011 [facility] CHEMISTRY CO2 22 24 - 32 12/05/2011 [facility] CHEMISTRY Chloride Lvl 105 95 - 109 12/05/2011 Normal [facility] CHEMISTRY Potassium Lvl 3.7 3.5 - 5.1 12/05/2011 Normal [facility] CHEMISTRY Sodium Lvl 140 135 - 145 12/05/2011 Normal [facility] CHEMISTRY Creatinine Lvl 0.6 0.5 - 1.4 12/05/2011 Normal [facility] CHEMISTRY Glucose Lvl 82 70 - 99 12/05/2011 Normal <sup>4</sup>Interpretive Data: Adult ref erence range values reflect the clinical guidelines of the [place] [employer]. [facility] CHEMISTRY BUN 10 7 - 22 12/05/2011 Normal [facility] CHEMISTRY Calcium Lvl 9.3 8.5 - 10.5 12/05/2011 [facility] CHEMISTRY eGFR >60 12/05/2011 NA <sup>2</sup>Result Comment: Expected eGFR for >20 yr. age group: >=60 ml/min/1.73 sq m The eGFR calculation is not valid in or for persons < 18 years of age. From [employer] Kid[employer] Education Program (NKDEP) [facility] CHEMISTRY AGAP 16.7 10.0 - 20.0 12/05/2011 [facility] HEMATOLOGY RBC 4.12 4.70 - 6.10 12/05/2011 [facility] HEMATOLOGY Hgb 13.0 14.0 - 18.0 12/05/2011 [facility] HEMATOLOGY WBC 6.6 3.7 - 10.4 12/05/2011 [facility] HEMATOLOGY MCH 31.6 27.0 - 31.0 12/05/2011 [facility] HEMATOLOGY MCV 92.8 80.0 - 94.0 12/05/2011 [facility] HEMATOLOGY Hct 38.2 42.0 - 54.0 12/05/2011 [facility] HEMATOLOGY MPV 9.0 7.4 - 10.4 12/05/2011 [facility] HEMATOLOGY MCHC 34.1 32.0 - 36.0 12/05/2011 [facility] HEMATOLOGY Platelet 233 133 - 450 12/05/2011 [facility] HEMATOLOGY RDW 14.9 11.5 - 14.5 12/05/2011 [facility] HEMATOLOGY Polychrom Sligh t (12/05/2011 03:53:00) None S een 12/05/2011 [facility] HEMATOLOGY Basophils # 0.0 0.0 - 0.2 12/05/2011 Normal [facility] HEMATOLOGY Neut Vac Sligh t *ABN* (12/05/2011 03:53:00) None S een 12/05/2011 ABN [facility] HEMATOLOGY Monocytes # 0.6 0.0 - 0.8 12/05/2011 Normal [facility] HEMATOLOGY Lymphocytes # 2.1 1.0 - 5.5 12/05/2011 Normal [facility] HEMATOLOGY Eosinophils # 0.1 0.0 - 0.5 12/05/2011 Normal [facility] HEMATOLOGY Monocytes 9.3 2.0 - 12.0 12/05/2011 Normal [facility] HEMATOLOGY Eosinophils 2.0 0.0 - 4.0 12/05/2011 Normal [facility] HEMATOLOGY Basophils 0.7 0.0 - 1.0 12/05/2011 Normal [facility] HEMATOLOGY Segs-Bands # 3.8 1.5 - 8.1 12/05/2011 Normal [facility] HEMATOLOGY Plt Morph Leeann l (12/05/2011 03:53:00) 12/05/2011 Normal [facility] HEMATOLOGY Segs 56.6 45.0 - 75.0 12/05/2011 Normal [facility] HEMATOLOGY Lymphocytes 31.4 20.0 - 40.0 12/05/2011 Normal [facility] BACTERIAL - SEROLOGY C diff Toxin Negative (12/04/2011 21:45:00) 12/05/2011 Normal [facility] CHEMISTRY U Cocaine Scr Negati ve *NA* (12/04/2011 21:45:00) Negati ve 12/05/2011 NA [facility] CHEMISTRY U Benzodia Scr Positi ve *ABN* (12/04/2011 21:45:00) Negati ve 12/05/2011 ABN [facility] CHEMISTRY U Opiate Scr Positi ve *ABN* (12/04/2011 21:45:00) Negati ve 12/05/2011 ABN [facility] CHEMISTRY U Cannab Scr Positi ve *ABN* (12/04/2011 21:45:00) Negati ve 12/05/2011 ABN [facility] CHEMISTRY U Chelsie Scr Negati ve *NA* (12/04/2011 21:45:00) Negati ve 12/05/2011 NA [facility] CHEMISTRY UDS Note See No te 6 (12/04/2011 21:45:00) 12/05/2011 Normal <sup>6</sup>Interpretive Data: Drugs reported as positive have not been confirmed by a second method and should be used for medical purposes only. To order confirmation, contact laboratory. note: Below are cut-off concentrations for all urine drugs of abuse performed in the laboratory. Some drugs listed in the table may not be included in this panel. Description Cut-off concentration Amphetamine 1000 ng/mL Barbiturates 200 ng/mL Benzodiazepines 300 ng/mL Cocaine metabolites 300 ng/mL Opiates 300 ng/mL Phencyclidine 25 ng/mL Propoxyphene 300 ng/mL Marijuana metabolites 50 ng/mL Methadone 300 ng/mL Urine alcohol 20 mg/dL [facility] CHEMISTRY U Phencyc Scr Negati ve *NA* (12/04/2011 21:45:00) Negati ve 12/05/2011 NA [facility] CHEMISTRY U Amph Scr Negati ve *NA* (12/04/2011 21:45:00) Negati ve 12/05/2011 NA [facility] CHEMISTRY Lactic Acid Lvl 1.3 0.5 - 2.2 12/05/2011 Normal [facility] Microbiology Culture: Blood 12/05/2011 [facility] CHEMISTRY A/G Ratio 0.8 0.7 - 1.6 12/04/2011 Normal [facility] CHEMISTRY B/C Ratio 11 6 - 25 12/04/2011 Normal [facility] CHEMISTRY Globulin 5.2 2.0 - 4.0 12/04/2011 [facility] CHEMISTRY AGAP 14.8 10.0 - 20.0 12/04/2011 Normal [facility] CHEMISTRY Albumin Lvl 3.9 3.5 - 5.0 12/04/2011 Normal [facility] CHEMISTRY ALT 29 0 - 65 12/04/2011 Normal [facility] CHEMISTRY CO2 26 24 - 32 12/04/2011 Normal [facility] CHEMISTRY Calcium Lvl 9.9 8.5 - 10.5 12/04/2011 Normal [facility] CHEMISTRY Total Protein 9.1 6.4 - 8.4 12/04/2011 [facility] CHEMISTRY Bili Total 0.3 0.2 - 1.3 12/04/2011 Normal [facility] CHEMISTRY AST 10 0 - 37 12/04/2011 Normal [facility] CHEMISTRY Alk Phos 108 39 - 136 12/04/2011 Normal [facility] CHEMISTRY Potassium Lvl 3.8 3.5 - 5.1 12/04/2011 Normal [facility] CHEMISTRY Chloride Lvl 102 95 - 109 12/04/2011 Normal [facility] CHEMISTRY Sodium Lvl 139 135 - 145 12/04/2011 Normal [facility] CHEMISTRY BUN 8 7 - 22 12/04/2011 Normal [facility] CHEMISTRY Glucose Lvl 102 70 - 99 12/04/2011 [place] <sup>5</sup>Interpretive Data: Adult ref erence range values reflect the clinical guidelines of the [place] [employer]. [facility] CHEMISTRY Creatinine Lvl 0.7 0.5 - 1.4 12/04/2011 Normal [facility] HEMATOLOGY Platelet 273 133 - 450 12/04/2011 Normal [facility] HEMATOLOGY MPV 8.4 7.4 - 10.4 12/04/2011 [facility] HEMATOLOGY RDW 15.0 11.5 - 14.5 12/04/2011 [facility] HEMATOLOGY Hct 45.1 42.0 - 54.0 12/04/2011 Normal [facility] HEMATOLOGY MCHC 33.1 32.0 - 36.0 12/04/2011 Normal [facility] HEMATOLOGY Hgb 14.9 14.0 - 18.0 12/04/2011 [facility] HEMATOLOGY RBC 4.82 4.70 - 6.10 12/04/2011 Normal [facility] HEMATOLOGY MCH 30.9 27.0 - 31.0 12/04/2011 Normal [facility] HEMATOLOGY MCV 93.5 80.0 - 94.0 12/04/2011 Normal [facility] HEMATOLOGY WBC 9.0 3.7 - 10.4 12/04/2011 Normal [facility] HEMATOLOGY Eosinophils # 0.0 0.0 - 0.5 12/04/2011 Normal [facility] HEMATOLOGY Lymphocytes 14.6 20.0 - 40.0 12/04/2011 LOW [facility] HEMATOLOGY Segs-Bands # 7.0 1.5 - 8.1 12/04/2011 Normal [facility] HEMATOLOGY Basophils 0.1 0.0 - 1.0 12/04/2011 Normal [facility] HEMATOLOGY Monocytes # 0.6 0.0 - 0.8 12/04/2011 [facility] HEMATOLOGY Lymphocytes # 1.3 1.0 - 5.5 12/04/2011 Normal [facility] HEMATOLOGY Eosinophils 0.2 0.0 - 4.0 12/04/2011 Normal [facility] HEMATOLOGY Monocytes 6.5 2.0 - 12.0 12/04/2011 Normal [facility] HEMATOLOGY Segs 78.6 45.0 - 75.0 12/04/2011 HI [facility] URINALYSIS UA Urobilinogen 0.1 - 1.0 12/04/2011 NA [facility] URINALYSIS Micro? Perfo rmed *NA* (12/04/2011 17:45:00) 12/04/2011 NA [facility] URINALYSIS UA Blood Moder ate *ABN* (12/04/2011 17:45:00) Negati ve 12/04/2011 ABN [facility] URINALYSIS UA Nitrite Negat pavel (12/04/2011 17:45:00) Negati ve 12/04/2011 Normal [facility] URINALYSIS UA Leuk Est Large *ABN* (12/04/2011 17:45:00) Negati ve 12/04/2011 ABN [facility] URINALYSIS UA Mucus Few / LPF *NA* (12/04/2011 17:45:00) None S een 12/04/2011 [facility] URINALYSIS UA RBC 160 0 - 2 12/04/2011 [facility] URINALYSIS UA WBC >182 0 - 5 12/04/2011 [facility] URINALYSIS UA Color Yello w *NA* (12/04/2011 17:45:00) Yellow 12/04/2011 NA [facility] URINALYSIS UA Turbidity Marke d *ABN* (12/04/2011 17:45:00) Clear 12/04/2011 ABN [facility] URINALYSIS UA Spec Grav 1.022 <=1.030 12/04/2011 Normal [facility] URINALYSIS UA pH 6.0 5.0 - 8.0 12/04/2011 Normal [facility] URINALYSIS UA Glucose Negat pavel mg/dL *NA* (12/04/2011 17:45:00) Negati ve 12/04/2011 NA [facility] URINALYSIS UA Ketones 60 mg /dL *ABN* (12/04/2011 17:45:00) Negati ve 12/04/2011 ABN [facility] URINALYSIS UA Protein 200 m g/dL *ABN* (12/04/2011 17:45:00) Negati ve 12/04/2011 ABN [facility] URINALYSIS UA Bili Negat pavel *NA* (12/04/2011 17:45:00) Negati ve 12/04/2011 NA [facility] Microbiology Culture: Urine 12/04/2011 [facility] CHEMISTRY Calcium Lvl 9.4 8.5 - 10.5 11/10/2011 Normal [facility] CHEMISTRY CO2 28 24 - 32 11/10/2011 Normal [facility] CHEMISTRY Chloride Lvl 105 95 - 109 11/10/2011 Normal [facility] CHEMISTRY Sodium Lvl 142 135 - 145 11/10/2011 Normal [facility] CHEMISTRY Potassium Lvl 4.6 3.5 - 5.1 11/10/2011 Normal [facility] CHEMISTRY Creatinine Lvl 0.9 0.5 - 1.4 11/10/2011 Normal [facility] CHEMISTRY BUN 6 7 - 22 11/10/2011 LOW [facility] CHEMISTRY Glucose Lvl 76 70 - 99 11/10/2011 Normal <sup>1</sup>Interpretive Data: Adult ref erence range values reflect the clinical guidelines of the [place] [employer]. [facility] CHEMISTRY AGAP 13.6 10.0 - 20.0 11/10/2011 Normal [facility] HEMATOLOGY MCV 93.3 80.0 - 94.0 11/10/2011 Normal [facility] HEMATOLOGY Hct 35.2 42.0 - 54.0 11/10/2011 LOW [facility] HEMATOLOGY MCH 31.9 27.0 - 31.0 11/10/2011 [facility] HEMATOLOGY RDW 14.6 11.5 - 14.5 11/10/2011 [facility] HEMATOLOGY MCHC 34.2 32.0 - 36.0 11/10/2011 Normal [facility] HEMATOLOGY MPV 7.5 7.4 - 10.4 11/10/2011 Normal [facility] HEMATOLOGY Platelet 268 133 - 450 11/10/2011 Normal [facility] HEMATOLOGY Hgb 12.1 14.0 - 18.0 11/10/2011 LOW [facility] HEMATOLOGY WBC 5.5 3.7 - 10.4 11/10/2011 Normal [facility] HEMATOLOGY RBC 3.78 4.70 - 6.10 11/10/2011 LOW [facility] CHEMISTRY U Amph Scr Negati ve *NA* (11/08/2011 08:20:00) Negati ve 11/08/2011 NA [facility] U Cannab Scr Positi ve *ABN* (11/08/2011 08:20:00) Negati ve 11/08/2011 ABN [facility] U Phencyc Scr Negati ve *NA* (11/08/2011 08:20:00) Negati ve 11/08/2011 NA [facility] UDS Note See No te 3 (11/08/2011 08:20:00) 11/08/2011 Normal <sup>3</sup>Interpretive Data: Drugs reported as positive have not been confirmed by a second method and should be used for medical purposes only. To order confirmation, contact laboratory. note: Below are cut-off concentrations for all urine drugs of abuse performed in the laboratory. Some drugs listed in the table may not be included in this panel. Description Cut-off concentration Amphetamine 1000 ng/mL Barbiturates 200 ng/mL Benzodiazepines 300 ng/mL Cocaine metabolites 300 ng/mL Opiates 300 ng/mL Phencyclidine 25 ng/mL Propoxyphene 300 ng/mL Marijuana metabolites 50 ng/mL Methadone 300 ng/mL Urine alcohol 20 mg/dL [facility] U Opiate Scr Positi ve *ABN* (11/08/2011 08:20:00) Negati ve 11/08/2011 ABN [facility] U Cocaine Scr Negati ve *NA* (11/08/2011 08:20:00) Negati ve 11/08/2011 NA [facility] CHEMISTRY U Chelsie Scr Negati ve *NA* (11/08/2011 08:20:00) Negati ve 11/08/2011 NA [facility] U Benzodia Scr Positi ve *ABN* (11/08/2011 08:20:00) Negati ve 11/08/2011 ABN [facility] HEMATOLOGY MPV 7.9 7.4 - 10.4 11/08/2011 Normal [facility] HEMATOLOGY Platelet 198 133 - 450 11/08/2011 Normal [facility] HEMATOLOGY MCHC 34.0 32.0 - 36.0 11/08/2011 Normal [facility] HEMATOLOGY MCH 31.4 27.0 - 31.0 11/08/2011 HI [facility] HEMATOLOGY MCV 92.3 80.0 - 94.0 11/08/2011 Normal [facility] HEMATOLOGY Hct 31.3 42.0 - 54.0 11/08/2011 LOW [facility] HEMATOLOGY RDW 14.7 11.5 - 14.5 11/08/2011 HI [facility] HEMATOLOGY WBC 6.3 3.7 - 10.4 11/08/2011 Normal [facility] HEMATOLOGY RBC 3.39 4.70 - 6.10 11/08/2011 LOW [facility] HEMATOLOGY Hgb 10.6 14.0 - 18.0 11/08/2011 LOW [facility] HEMATOLOGY Eosinophils # 0.1 0.0 - 0.5 11/08/2011 Normal [facility] HEMATOLOGY Monocytes # 0.8 0.0 - 0.8 11/08/2011 Normal [facility] HEMATOLOGY Basophils # 0.0 0.0 - 0.2 11/08/2011 Normal [facility] HEMATOLOGY Lymphocytes # 1.8 1.0 - 5.5 11/08/2011 Normal [facility] HEMATOLOGY Segs-Bands # 3.5 1.5 - 8.1 11/08/2011 Normal [facility] HEMATOLOGY Eosinophils 1.1 0.0 - 4.0 11/08/2011 Normal [facility] HEMATOLOGY Basophils 0.8 0.0 - 1.0 11/08/2011 Normal [facility] HEMATOLOGY Segs 56.7 45.0 - 75.0 11/08/2011 Normal [facility] HEMATOLOGY Monocytes 12.7 2.0 - 12.0 11/08/2011 HI [facility] HEMATOLOGY Lymphocytes 28.7 20.0 - 40.0 11/08/2011 Normal [facility] CHEMISTRY U Opiate Scr Positi ve *ABN* (11/07/2011 18:04:00) Negati ve 11/07/2011 ABN [facility] CHEMISTRY U Phencyc Scr Negati ve *NA* (11/07/2011 18:04:00) Negati ve 11/07/2011 NA [facility] CHEMISTRY UDS Note See No te 4 (11/07/2011 18:04:00) 11/07/2011 Normal <sup>4</sup>Interpretive Data: Drugs reported as positive have not been confirmed by a second method and should be used for medical purposes only. To order confirmation, contact laboratory. note: Below are cut-off concentrations for all urine drugs of abuse performed in the laboratory. Some drugs listed in the table may not be included in this panel. Description Cut-off concentration Amphetamine 1000 ng/mL Barbiturates 200 ng/mL Benzodiazepines 300 ng/mL Cocaine metabolites 300 ng/mL Opiates 300 ng/mL Phencyclidine 25 ng/mL Propoxyphene 300 ng/mL Marijuana metabolites 50 ng/mL Methadone 300 ng/mL Urine alcohol 20 mg/dL [facility] CHEMISTRY U Cocaine Scr Negati ve *NA* (11/07/2011 18:04:00) Negati ve 11/07/2011 NA [facility] CHEMISTRY U Cannab Scr Positi ve *ABN* (11/07/2011 18:04:00) Negati ve 11/07/2011 ABN [facility] CHEMISTRY U Amph Scr Negati ve *NA* (11/07/2011 18:04:00) Negati ve 11/07/2011 NA [facility] CHEMISTRY U Chelsie Scr Negati ve *NA* (11/07/2011 18:04:00) Negati ve 11/07/2011 NA [facility] CHEMISTRY U Benzodia Scr Positi ve *ABN* (11/07/2011 18:04:00) Negati ve 11/07/2011 ABN [facility] URINALYSIS UA Nitrite Posit pavel *ABN* (11/06/2011 23:45:00) Negati ve 11/07/2011 ABN [facility] URINALYSIS UA Leuk Est Large *ABN* (11/06/2011 23:45:00) Negati ve 11/07/2011 ABN [facility] URINALYSIS UA Sq Epi Few / LPF (11/06/2011 23:45:00) Few 11/07/2011 Normal [facility] URINALYSIS UA Urobilinogen 0.2 0.1 - 1.0 11/07/2011 Normal [facility] URINALYSIS Micro? Perfo rmed (11/06/2011 23:45:00) 11/07/2011 Normal [facility] URINALYSIS UA Blood Moder ate *ABN* (11/06/2011 23:45:00) Negati ve 11/07/2011 ABN [facility] URINALYSIS UA Ketones Trace *ABN* (11/06/2011 23:45:00) Negati ve 11/07/2011 ABN [facility] URINALYSIS UA Bili Negat pavel *NA* (11/06/2011 23:45:00) Negati ve 11/07/2011 NA [facility] URINALYSIS UA Amorph Michelle Few / HPF *ABN* (11/06/2011 23:45:00) None S een 11/07/2011 ABN [facility] URINALYSIS UA Hyph Yeast Few / HPF *ABN* (11/06/2011 23:45:00) 11/07/2011 ABN [facility] URINALYSIS UA Clay Yeast Few / HPF *ABN* (11/06/2011 23:45:00) None S een 11/07/2011 ABN [facility] URINALYSIS UA Bacteria Moder ate /HPF (11/06/2011 23:45:00) None S een 11/07/2011 Normal [facility] URINALYSIS UA Mucus Few / LPF (11/06/2011 23:45:00) None S een 11/07/2011 Normal [facility] URINALYSIS UA pH 6.0 5.0 - 8.0 11/07/2011 Normal [facility] URINALYSIS UA Protein 30 mg /dL *ABN* (11/06/2011 23:45:00) Negati ve 11/07/2011 ABN [facility] URINALYSIS UA Glucose Negat pavel (11/06/2011 23:45:00) Negati ve 11/07/2011 Normal [facility] URINALYSIS UA Spec Grav 1.025 <=1.030 11/07/2011 Normal [facility] URINALYSIS UA Turbidity Banner y *ABN* (11/06/2011 23:45:00) Clear 11/07/2011 ABN [facility] URINALYSIS UA Color Yello w *NA* (11/06/2011 23:45:00) Yellow 11/07/2011 NA [facility] URINALYSIS UA RBC 6-10 /HPF *ABN* (11/06/2011 23:45:00) 0 - 2 11/07/2011 ABN [facility] URINALYSIS UA WBC >100 /HPF *ABN* (11/06/2011 23:45:00) None S een 11/07/2011 ABN [facility] Microbiology Culture: Urine 11/07/2011 [facility] CHEMISTRY Lipase Lvl 38 73 - 393 11/07/2011 LOW [facility] CHEMISTRY ALT 33 0 - 65 11/07/2011 Normal [facility] CHEMISTRY Alk Phos 106 39 - 136 11/07/2011 Normal [facility] CHEMISTRY Bili Total 0.3 0.2 - 1.3 11/07/2011 Normal [facility] CHEMISTRY AST 17 0 - 37 11/07/2011 Normal [facility] CHEMISTRY Albumin Lvl 3.2 3.5 - 5.0 11/07/2011 LOW [facility] CHEMISTRY Creatinine Lvl 0.8 0.5 - 1.4 11/07/2011 Normal [facility] CHEMISTRY Sodium Lvl 137 135 - 145 11/07/2011 Normal [facility] CHEMISTRY BUN 14 7 - 22 11/07/2011 Normal [facility] CHEMISTRY Glucose Lvl 101 70 - 99 11/07/2011 [place] <sup>2</sup>Interpretive Data: Adult ref erence range values reflect the clinical guidelines of the [place] [employer]. [facility] CHEMISTRY Potassium Lvl 3.7 3.5 - 5.1 11/07/2011 Normal [facility] CHEMISTRY Chloride Lvl 102 95 - 109 11/07/2011 Normal [facility] CHEMISTRY CO2 26 24 - 32 11/07/2011 Normal [facility] CHEMISTRY Calcium Lvl 9.2 8.5 - 10.5 11/07/2011 Normal [facility] CHEMISTRY Total Protein 8.8 6.4 - 8.4 11/07/2011 [facility] CHEMISTRY AGAP 12.7 10.0 - 20.0 11/07/2011 Normal [facility] CHEMISTRY B/C Ratio 18 6 - 25 11/07/2011 Normal [facility] CHEMISTRY Globulin 5.6 2.0 - 4.0 11/07/2011 HI [facility] CHEMISTRY A/G Ratio 0.6 0.7 - 1.6 11/07/2011 LOW [facility] CHEMISTRY Troponin-I <0.02 0.00 - 0.40 11/07/2011 Normal [facility] CHEMISTRY CK MB <0.5 0.5 - 3.6 11/07/2011 Normal [facility] HEMATOLOGY Eosinophils # 0.0 0.0 - 0.5 11/07/2011 Normal [facility] HEMATOLOGY Basophils # 0.0 0.0 - 0.2 11/07/2011 Normal [facility] HEMATOLOGY Lymphocytes # 1.5 1.0 - 5.5 11/07/2011 Normal [facility] HEMATOLOGY Monocytes # 0.9 0.0 - 0.8 11/07/2011 [facility] HEMATOLOGY Segs 73.1 45.0 - 75.0 11/07/2011 Normal [facility] HEMATOLOGY Lymphocytes 16.3 20.0 - 40.0 11/07/2011 [facility] HEMATOLOGY Monocytes 10.3 2.0 - 12.0 11/07/2011 Normal [facility] HEMATOLOGY Eosinophils 0.0 0.0 - 4.0 11/07/2011 [place] [facility] HEMATOLOGY Basophils 0.3 0.0 - 1.0 11/07/2011 Normal [facility] HEMATOLOGY Segs-Bands # 6.6 1.5 - 8.1 11/07/2011 [facility] HEMATOLOGY RBC 3.85 4.70 - 6.10 11/07/2011 [facility] HEMATOLOGY WBC 9.1 3.7 - 10.4 11/07/2011 [facility] HEMATOLOGY MCV 89.9 80.0 - 94.0 11/07/2011 [facility] HEMATOLOGY Hct 34.6 42.0 - 54.0 11/07/2011 [facility] HEMATOLOGY Hgb 12.1 14.0 - 18.0 11/07/2011 [facility] HEMATOLOGY MPV 8.6 7.4 - 10.4 11/07/2011 [facility] HEMATOLOGY Platelet 191 133 - 450 11/07/2011 [facility] HEMATOLOGY RDW 14.9 11.5 - 14.5 11/07/2011 [facility] HEMATOLOGY MCHC 34.9 32.0 - 36.0 11/07/2011 [facility] HEMATOLOGY MCH 31.4 27.0 - 31.0 11/07/2011 [facility] CHEMISTRY Glucose Lvl 101 10/21/2011 NA <sup>1</sup>Interpretive Data: Reference Ranges : 0 - 7 days : 41 - 90 mg/dL 7 days - 150 yrs : 70 - 99 mg/dL (fasting), based on the clinical recommendations of the [place] [employer]. [facility] CHEMISTRY Creatinine Lvl 1.0 0.5 - 1.4 10/21/2011 Normal [facility] CHEMISTRY BUN 26 7 - 22 10/21/2011 [facility] CHEMISTRY Sodium Lvl 140 135 - 145 10/21/2011 [facility] CHEMISTRY Potassium Lvl 4.7 3.5 - 5.1 10/21/2011 [facility] CHEMISTRY CO2 26 24 - 32 10/21/2011 [facility] CHEMISTRY Chloride Lvl 107 95 - 109 10/21/2011 [facility] CHEMISTRY Calcium Lvl 9.3 8.5 - 10.5 10/21/2011 Normal [facility] CHEMISTRY AGAP 11.7 10.0 - 20.0 10/21/2011 Normal [facility] CHEMISTRY Chloride Lvl 104 95 - 109 10/19/2011 Normal [facility] CHEMISTRY AGAP 14.0 10.0 - 20.0 10/19/2011 Normal [facility] CHEMISTRY CO2 26 24 - 32 10/19/2011 Normal [facility] CHEMISTRY Calcium Lvl 9.3 8.5 - 10.5 10/19/2011 Normal [facility] CHEMISTRY BUN 29 7 - 22 10/19/2011 HI [facility] CHEMISTRY Potassium Lvl 5.0 3.5 - 5.1 10/19/2011 Normal [facility] CHEMISTRY Creatinine Lvl 1.1 0.5 - 1.4 10/19/2011 Normal [facility] CHEMISTRY Sodium Lvl 139 135 - 145 10/19/2011 Normal [facility] CHEMISTRY Glucose Lvl 88 10/19/2011 NA <sup>2</sup>Interpretive Data: Reference Ranges : 0 - 7 days : 41 - 90 mg/dL 7 days - 150 yrs : 70 - 99 mg/dL (fasting), based on the clinical recommendations of the [place] [employer]. [facility] CHEMISTRY Calcium Lvl 8.9 8.5 - 10.5 10/18/2011 Normal [facility] CHEMISTRY AGAP 11.7 10.0 - 20.0 10/18/2011 Normal [facility] CHEMISTRY CO2 27 24 - 32 10/18/2011 Normal [facility] CHEMISTRY Chloride Lvl 108 95 - 109 10/18/2011 Normal [facility] CHEMISTRY Glucose Lvl 95 10/18/2011 NA <sup>3</sup>Interpretive Data: Reference Ranges : 0 - 7 days : 41 - 90 mg/dL 7 days - 150 yrs : 70 - 99 mg/dL (fasting), based on the clinical recommendations of the [place] [employer]. [facility] CHEMISTRY Sodium Lvl 142 135 - 145 10/18/2011 Normal [facility] CHEMISTRY Potassium Lvl 4.7 3.5 - 5.1 10/18/2011 Normal [facility] CHEMISTRY BUN 34 7 - 22 10/18/2011 HI [facility] CHEMISTRY Creatinine Lvl 1.6 0.5 - 1.4 10/18/2011 HI [facility] CHEMISTRY Magnesium Lvl 1.4 1.8 - 2.4 10/18/2011 LOW [facility] URINALYSIS UA Urobilinogen 0.1 - 1.0 10/17/2011 NA [facility] URINALYSIS Micro? Perfo rmed *NA* (10/17/2011 03:00:00) 10/17/2011 NA [facility] URINALYSIS UA Leuk Est Moder ate *ABN* (10/17/2011 03:00:00) Negati ve 10/17/2011 ABN [facility] URINALYSIS UA WBC 3 0 - 5 10/17/2011 Normal [facility] URINALYSIS UA RBC 1 0 - 2 10/17/2011 Normal [facility] URINALYSIS UA Ketones Negat pavel mg/dL *NA* (10/17/2011 03:00:00) Negati ve 10/17/2011 NA [facility] URINALYSIS UA Blood Negat pavel (10/17/2011 03:00:00) Negati ve 10/17/2011 Normal [facility] URINALYSIS UA Bili Negat pavel *NA* (10/17/2011 03:00:00) Negati ve 10/17/2011 NA [facility] URINALYSIS UA Nitrite Negat pavel (10/17/2011 03:00:00) Negati ve 10/17/2011 Normal [facility] URINALYSIS UA Color Color less *NA* (10/17/2011 03:00:00) Yellow 10/17/2011 NA [facility] URINALYSIS UA Glucose Negat pavel mg/dL *NA* (10/17/2011 03:00:00) Negati ve 10/17/2011 NA [facility] URINALYSIS UA Spec Grav 1.007 <=1.030 10/17/2011 Normal [facility] URINALYSIS UA Turbidity Clear (10/17/2011 03:00:00) Clear 10/17/2011 Normal [facility] URINALYSIS UA Protein Negat pavel mg/dL (10/17/2011 03:00:00) Negati ve 10/17/2011 Normal [facility] URINALYSIS UA pH 5.0 5.0 - 8.0 10/17/2011 Normal [facility] CHEMISTRY Magnesium Lvl 1.7 1.8 - 2.4 10/17/2011 LOW [facility] HEMATOLOGY Basophils # 0.0 0.0 - 0.2 10/17/2011 Normal [facility] HEMATOLOGY Large Plt Sligh t *ABN* (10/17/2011 02:23:00) None S een 10/17/2011 ABN [facility] HEMATOLOGY Basophils 0.7 0.0 - 1.0 10/17/2011 [facility] HEMATOLOGY Eosinophils 5.2 0.0 - 4.0 10/17/2011 [facility] HEMATOLOGY Monocytes 10.2 2.0 - 12.0 10/17/2011 Normal [facility] HEMATOLOGY Eosinophils # 0.2 0.0 - 0.5 10/17/2011 [facility] HEMATOLOGY Monocytes # 0.5 0.0 - 0.8 10/17/2011 [facility] HEMATOLOGY Lymphocytes # 1.9 1.0 - 5.5 10/17/2011 [facility] HEMATOLOGY Segs-Bands # 2.0 1.5 - 8.1 10/17/2011 [facility] HEMATOLOGY Lymphocytes 41.1 20.0 - 40.0 10/17/2011 [facility] HEMATOLOGY Segs 42.8 45.0 - 75.0 10/17/2011 LOW [facility] HEMATOLOGY RBC Morph Leeann l (10/17/2011 02:23:00) 10/17/2011 Normal [facility] HEMATOLOGY MPV 8.5 7.4 - 10.4 10/17/2011 [facility] HEMATOLOGY Platelet 201 133 - 450 10/17/2011 [facility] HEMATOLOGY RDW 16.1 11.5 - 14.5 10/17/2011 [facility] HEMATOLOGY MCHC 34.5 32.0 - 36.0 10/17/2011 [facility] HEMATOLOGY MCV 93.0 80.0 - 94.0 10/17/2011 [facility] HEMATOLOGY MCH 32.1 27.0 - 31.0 10/17/2011 [facility] HEMATOLOGY Hct 32.4 42.0 - 54.0 10/17/2011 [facility] HEMATOLOGY Hgb 11.2 14.0 - 18.0 10/17/2011 [facility] HEMATOLOGY RBC 3.48 4.70 - 6.10 10/17/2011 [facility] HEMATOLOGY WBC 4.7 3.7 - 10.4 10/17/2011 [facility] Microbiology Culture: Urine 10/17/2011 [facility] CHEMISTRY Magnesium Lvl 1.6 1.8 - 2.4 10/16/2011 [facility] CHEMISTRY Phosphorus 6.5 2.5 - 4.5 10/16/2011 [facility] CHEMISTRY Total CK 107 12 - 191 10/16/2011 Normal [facility] HEMATOLOGY Platelet 192 133 - 450 10/16/2011 Normal <sup>12</sup>Result Comment: revciewed 3:30 gr [facility] HEMATOLOGY RDW 15.5 11.5 - 14.5 10/16/2011 [facility] HEMATOLOGY MCH 30.9 27.0 - 31.0 10/16/2011 Normal [facility] HEMATOLOGY MCV 91.6 80.0 - 94.0 10/16/2011 Normal [facility] HEMATOLOGY MCHC 33.7 32.0 - 36.0 10/16/2011 [facility] HEMATOLOGY MPV 8.5 7.4 - 10.4 10/16/2011 [facility] HEMATOLOGY RBC 3.79 4.70 - 6.10 10/16/2011 [facility] HEMATOLOGY Hct 34.7 42.0 - 54.0 10/16/2011 [facility] HEMATOLOGY Hgb 11.7 14.0 - 18.0 10/16/2011 [facility] HEMATOLOGY WBC 6.3 3.7 - 10.4 10/16/2011 Normal [facility] HEMATOLOGY PT 14.4 12.0 - 14.7 10/16/2011 Normal [facility] HEMATOLOGY INR 1.12 0.85 - 1.17 10/16/2011 Normal <sup>13</sup>Interpretive Data: RECOMMEN DED RANGES FOR PROTIME INR: 2.0-3.0 for most medical and surgical thromboembolic states. 2.5-3.5 for artificial heart valves and recurrent embolism. INR SHOULD BE USED ONLY FOR PATIENTS ON STABLE ANTICOAGULANT THERAPY. [facility] HEMATOLOGY Monocytes # 0.7 0.0 - 0.8 10/16/2011 Normal [facility] HEMATOLOGY Eosinophils # 0.2 0.0 - 0.5 10/16/2011 Normal [facility] HEMATOLOGY Basophils # 0.0 0.0 - 0.2 10/16/2011 [facility] HEMATOLOGY Lymphocytes 23.6 20.0 - 40.0 10/16/2011 [facility] HEMATOLOGY Monocytes 11.2 2.0 - 12.0 10/16/2011 [facility] HEMATOLOGY Eosinophils 2.4 0.0 - 4.0 10/16/2011 [facility] HEMATOLOGY Segs 62.4 45.0 - 75.0 10/16/2011 Normal [facility] HEMATOLOGY Basophils 0.4 0.0 - 1.0 10/16/2011 Normal [facility] HEMATOLOGY Segs-Bands # 3.9 1.5 - 8.1 10/16/2011 Normal [facility] HEMATOLOGY Lymphocytes # 1.5 1.0 - 5.5 10/16/2011 Normal [facility] URINALYSIS UA Protein 50 mg /dL *ABN* (10/16/2011 02:10:00) Negati ve 10/16/2011 ABN [facility] URINALYSIS UA Glucose Negat pavel mg/dL *NA* (10/16/2011 02:10:00) Negati ve 10/16/2011 NA [facility] URINALYSIS UA Spec Grav 1.007 <=1.030 10/16/2011 Normal [facility] URINALYSIS UA Urobilinogen 0.1 - 1.0 10/16/2011 NA [facility] URINALYSIS UA Bacteria Occas ional /HPF *NA* (10/16/2011 02:10:00) None S een 10/16/2011 NA [facility] URINALYSIS UA Leuk Est Large *ABN* (10/16/2011 02:10:00) Negati ve 10/16/2011 ABN [facility] URINALYSIS UA Color Yello w *NA* (10/16/2011 02:10:00) Yellow 10/16/2011 NA [facility] URINALYSIS UA Turbidity Sligh t *ABN* (10/16/2011 02:10:00) Clear 10/16/2011 ABN [facility] URINALYSIS UA pH 6.0 5.0 - 8.0 10/16/2011 Normal [facility] URINALYSIS Micro? Perfo rmed *NA* (10/16/2011 02:10:00) 10/16/2011 [facility] URINALYSIS UA Mucus Few / LPF *NA* (10/16/2011 02:10:00) None S een 10/16/2011 [facility] URINALYSIS UA Hyal Cast 3 0 - 2 10/16/2011 HI [facility] URINALYSIS UA Blood Large *ABN* (10/16/2011 02:10:00) Negati ve 10/16/2011 ABN [facility] URINALYSIS UA Bili Negat pavel *NA* (10/16/2011 02:10:00) Negati ve 10/16/2011 NA [facility] URINALYSIS UA Nitrite Negat pavel (10/16/2011 02:10:00) Negati ve 10/16/2011 Normal [facility] URINALYSIS UA Ketones Negat pavel mg/dL *NA* (10/16/2011 02:10:00) Negati ve 10/16/2011 NA [facility] URINALYSIS UA WBC 51 0 - 5 10/16/2011 HI [facility] URINALYSIS UA Sq Epi Moder ate /LPF *ABN* (10/16/2011 02:10:00) Few 10/16/2011 ABN [facility] URINALYSIS UA RBC >182 0 - 2 10/16/2011 HI [facility] Microbiology Culture: Urine 10/16/2011 [facility] CHEMISTRY U Creatinine 42.8 10/15/2011 NA <sup>9</sup>Interpretive Data: No establ ished reference ranges. [facility] CHEMISTRY U Sodium 70 10/15/2011 NA <sup>11</sup>Interpretive Data: No established reference ranges. [facility] CHEMISTRY U Prot/Creat 27.1 10/15/2011 NA [facility] CHEMISTRY U Eos None S een (10/15/2011 17:30:00) None S een 10/15/2011 Normal [facility] CHEMISTRY U Protein 1160.3 10/15/2011 NA <sup>10</sup>Interpretive Data: No estab lished reference ranges. [facility] URINALYSIS Micro? Perfo rmed *NA* (10/15/2011 17:30:00) 10/15/2011 NA [facility] URINALYSIS UA Urobilinogen 0.1 - 1.0 10/15/2011 NA [facility] URINALYSIS UA Nitrite Negat pavel (10/15/2011 17:30:00) Negati ve 10/15/2011 Normal [facility] URINALYSIS UA Clay Yeast Moder ate /HPF *ABN* (10/15/2011 17:30:00) None S een 10/15/2011 ABN [facility] URINALYSIS UA Hyph Yeast Occas ional *ABN* (10/15/2011 17:30:00) None S een 10/15/2011 ABN [facility] URINALYSIS UA Mucus Few / LPF *NA* (10/15/2011 17:30:00) None S een 10/15/2011 NA [facility] URINALYSIS UA Hyal Cast 2 0 - 2 10/15/2011 Normal [facility] URINALYSIS UA Leuk Est Large *ABN* (10/15/2011 17:30:00) Negati ve 10/15/2011 ABN [facility] URINALYSIS UA WBC 44 0 - 5 10/15/2011 HI [facility] URINALYSIS UA RBC 170 0 - 2 10/15/2011 HI [facility] URINALYSIS UA Bacteria Occas ional /HPF *NA* (10/15/2011 17:30:00) None S een 10/15/2011 NA [facility] URINALYSIS UA Spec Grav 1.014 <=1.030 10/15/2011 Normal [facility] URINALYSIS UA pH 6.5 5.0 - 8.0 10/15/2011 Normal [facility] URINALYSIS UA Color Yello w *NA* (10/15/2011 17:30:00) Yellow 10/15/2011 NA [facility] URINALYSIS UA Turbidity Sligh t *ABN* (10/15/2011 17:30:00) Clear 10/15/2011 ABN [facility] URINALYSIS UA Ketones Negat pavel mg/dL *NA* (10/15/2011 17:30:00) Negati ve 10/15/2011 NA [facility] URINALYSIS UA Bili Negat pavel *NA* (10/15/2011 17:30:00) Negati ve 10/15/2011 NA [facility] URINALYSIS UA Protein >=300 mg/dL *ABN* (10/15/2011 17:30:00) Negati ve 10/15/2011 ABN [facility] URINALYSIS UA Glucose Negat pavel mg/dL *NA* (10/15/2011 17:30:00) Negati ve 10/15/2011 NA [facility] URINALYSIS UA Blood Moder ate *ABN* (10/15/2011 17:30:00) Negati ve 10/15/2011 ABN [facility] CHEMISTRY Mode Art Rm Air (10/15/2011 09:36:00) 10/15/2011 Normal [facility] CHEMISTRY Allens Art Positi ve (10/15/2011 09:36:00) 10/15/2011 Normal [facility] CHEMISTRY Site Art Right Ra (10/15/2011 09:36:00) 10/15/2011 Normal [facility] CHEMISTRY Temp Art 37.0 10/15/2011 NA [facility] CHEMISTRY BE Art -9 -2-2 - 2 10/15/2011 LOW [facility] CHEMISTRY O2 Sat Art 99.5 95.0 - 100.0 10/15/2011 Normal [facility] CHEMISTRY pCO2 Art 33 35 - 45 10/15/2011 LOW [facility] CHEMISTRY pH Art 7.30 7.35 - 7.45 10/15/2011 LOW [facility] CHEMISTRY pO2 Art 168 80 - 100 10/15/2011 [facility] CHEMISTRY HCO3 Art 16 22 - 26 10/15/2011 [facility] CHEMISTRY A/G Ratio 0.7 0.7 - 1.6 10/15/2011 Normal [facility] CHEMISTRY B/C Ratio 14 6 - 25 10/15/2011 Normal [facility] CHEMISTRY Globulin 5.0 2.0 - 4.0 10/15/2011 [facility] CHEMISTRY Bili Total 0.4 0.2 - 1.3 10/15/2011 Normal [facility] CHEMISTRY ALT 62 0 - 65 10/15/2011 Normal [facility] CHEMISTRY AST 40 0 - 37 10/15/2011 [facility] CHEMISTRY Alk Phos 86 39 - 136 10/15/2011 Normal [facility] CHEMISTRY Total Protein 8.3 6.4 - 8.4 10/15/2011 Normal [facility] CHEMISTRY Albumin Lvl 3.3 3.5 - 5.0 10/15/2011 LOW [facility] CHEMISTRY Vanco Lvl TLD unknown 10/15/2011 NA [facility] CHEMISTRY Vanco Lvl 25.9 10/15/2011 NA <sup>6</sup>Interpretive Data: Therapeutic Range: Trough: 10 - 20 ug/mL Peak: 20 - 40 ug/mL Potential Toxicity: >80 ug/mL [facility] HEMATOLOGY MPV 9.0 7.4 - 10.4 10/15/2011 Normal [facility] HEMATOLOGY WBC 6.6 3.7 - 10.4 10/15/2011 [facility] HEMATOLOGY RBC 4.45 4.70 - 6.10 10/15/2011 LOW [facility] HEMATOLOGY Hgb 14.2 14.0 - 18.0 10/15/2011 Normal [facility] HEMATOLOGY Hct 42.0 42.0 - 54.0 10/15/2011 Normal [facility] HEMATOLOGY MCHC 33.9 32.0 - 36.0 10/15/2011 Normal [facility] HEMATOLOGY MCH 32.0 27.0 - 31.0 10/15/2011 [facility] HEMATOLOGY Platelet 134 133 - 450 10/15/2011 Normal [facility] HEMATOLOGY MCV 94.3 80.0 - 94.0 10/15/2011 [facility] HEMATOLOGY RDW 15.9 11.5 - 14.5 10/15/2011 [facility] HEMATOLOGY Lymphocytes # 1.9 1.0 - 5.5 10/15/2011 Normal [facility] HEMATOLOGY Segs-Bands # 3.8 1.5 - 8.1 10/15/2011 Normal [facility] HEMATOLOGY Eosinophils 2.7 0.0 - 4.0 10/15/2011 Normal [facility] HEMATOLOGY Monocytes 10.8 2.0 - 12.0 10/15/2011 Normal [facility] HEMATOLOGY Monocytes # 0.7 0.0 - 0.8 10/15/2011 Normal [facility] HEMATOLOGY Macrocyte 1+ *ABN* (10/15/2011 05:13:00) None S een 10/15/2011 ABN [facility] HEMATOLOGY Eosinophils # 0.2 0.0 - 0.5 10/15/2011 Normal [facility] HEMATOLOGY Basophils 0.3 0.0 - 1.0 10/15/2011 Normal [facility] HEMATOLOGY Lymphocytes 29.2 20.0 - 40.0 10/15/2011 [facility] HEMATOLOGY Segs 57.0 45.0 - 75.0 10/15/2011 Normal [facility] HEMATOLOGY Plt Morph Leeann l (10/15/2011 05:13:00) 10/15/2011 Normal [facility] HEMATOLOGY RBC Morph Leeann l (10/15/2011 05:13:00) 10/15/2011 Normal [facility] CHEMISTRY Ethanol Lvl <3 10/15/2011 NA <sup>8</sup>Interpretive Data: Negative Range: <3 mg/dL Toxic Range: >250 mg/dL [facility] CHEMISTRY Etoh (%) <0.003 10/15/2011 NA <sup>7</sup>Interpretive Data: Negative Range: <0.003% Toxic Range: >0.25% [facility] CHEMISTRY CK MB Index 2.1 0.0 - 2.5 10/15/2011 Normal [facility] CHEMISTRY Troponin-I <0.02 0.00 - 0.40 10/15/2011 Normal [facility] CHEMISTRY Total CK 151 12 - 191 10/15/2011 Normal [facility] CHEMISTRY B/C Ratio 16 6 - 25 10/15/2011 Normal [facility] CHEMISTRY A/G Ratio 0.7 0.7 - 1.6 10/15/2011 Normal [facility] CHEMISTRY Globulin 4.6 2.0 - 4.0 10/15/2011 HI [facility] CHEMISTRY Alk Phos 80 39 - 136 10/15/2011 Normal [facility] CHEMISTRY AST 32 0 - 37 10/15/2011 Normal [facility] CHEMISTRY Bili Total 0.3 0.2 - 1.3 10/15/2011 Normal [facility] CHEMISTRY Albumin Lvl 3.4 3.5 - 5.0 10/15/2011 LOW [facility] CHEMISTRY ALT 62 0 - 65 10/15/2011 Normal [facility] CHEMISTRY Total Protein 8.0 6.4 - 8.4 10/15/2011 Normal [facility] CHEMISTRY CK MB 3.1 0.5 - 3.6 10/15/2011 Normal [facility] HEMATOLOGY Basophils # 0.0 0.0 - 0.2 10/15/2011 Normal [facility] CHEMISTRY U Cocaine Scr Positi ve *ABN* (10/14/2011 22:00:00) Negati ve 10/15/2011 ABN [facility] CHEMISTRY U Chelsie Scr Negati ve *NA* (10/14/2011 22:00:00) Negati ve 10/15/2011 NA [facility] CHEMISTRY U Amph Scr Negati ve *NA* (10/14/2011 22:00:00) Negati ve 10/15/2011 NA [facility] CHEMISTRY U Opiate Scr Positi ve *ABN* (10/14/2011 22:00:00) Negati ve 10/15/2011 ABN [facility] CHEMISTRY U Cannab Scr Positi ve *ABN* (10/14/2011 22:00:00) Negati ve 10/15/2011 ABN [facility] CHEMISTRY U Phencyc Scr Negati ve *NA* (10/14/2011 22:00:00) Negati ve 10/15/2011 NA [facility] CHEMISTRY UDS Note See No te 5 (10/14/2011 22:00:00) 10/15/2011 Normal <sup>5</sup>Interpretive Data: Drugs reported as positive have not been confirmed by a second method and should be used for medical purposes only. To order confirmation, contact laboratory. note: Below are cut-off concentrations for all urine drugs of abuse performed in the laboratory. Some drugs listed in the table may not be included in this panel. Description Cut-off concentration Amphetamine 1000 ng/mL Barbiturates 200 ng/mL Benzodiazepines 300 ng/mL Cocaine metabolites 300 ng/mL Opiates 300 ng/mL Phencyclidine 25 ng/mL Propoxyphene 300 ng/mL Marijuana metabolites 50 ng/mL Methadone 300 ng/mL Urine alcohol 20 mg/dL [facility] CHEMISTRY U Benzodia Scr Positi ve 4 *ABN* (10/14/2011 22:00:00) Negati ve 10/15/2011 ABN <sup>4</sup>Result Comment: rechecked 10/14/2011 23:24 gr [facility] CHEMISTRY AGAP 11.6 10.0 - 20.0 09/13/2011 Normal [facility] CHEMISTRY Glucose Lvl 90 09/13/2011 NA <sup>2</sup>Interpretive Data: Reference Ranges : 0 - 7 days : 41 - 90 mg/dL 7 days - 150 yrs : 70 - 99 mg/dL (fasting), based on the clinical recommendations of the [place] [employer]. [facility] CHEMISTRY BUN 22 7 - 22 09/13/2011 Normal [facility] CHEMISTRY Sodium Lvl 139 135 - 145 09/13/2011 Normal [facility] CHEMISTRY Potassium Lvl 4.6 3.5 - 5.1 09/13/2011 Normal [facility] CHEMISTRY Creatinine Lvl 0.8 0.5 - 1.4 09/13/2011 Normal [facility] CHEMISTRY CO2 28 24 - 32 09/13/2011 Normal [facility] CHEMISTRY Chloride Lvl 104 95 - 109 09/13/2011 Normal [facility] CHEMISTRY Calcium Lvl 8.7 8.5 - 10.5 09/13/2011 Normal [facility] HEMATOLOGY Monocytes # 1.0 0.0 - 0.8 09/13/2011 [facility] HEMATOLOGY Lymphocytes # 2.7 1.0 - 5.5 09/13/2011 Normal [facility] HEMATOLOGY Eosinophils # 0.4 0.0 - 0.5 09/13/2011 Normal [facility] HEMATOLOGY Basophils # 0.1 0.0 - 0.2 09/13/2011 Normal [facility] HEMATOLOGY Lymphocytes 25.3 20.0 - 40.0 09/13/2011 [facility] HEMATOLOGY Monocytes 9.4 2.0 - 12.0 09/13/2011 Normal [facility] HEMATOLOGY Eosinophils 3.5 0.0 - 4.0 09/13/2011 [facility] HEMATOLOGY Segs 61.3 45.0 - 75.0 09/13/2011 [facility] HEMATOLOGY Segs-Bands # 6.6 1.5 - 8.1 09/13/2011 [facility] HEMATOLOGY Basophils 0.5 0.0 - 1.0 09/13/2011 [facility] HEMATOLOGY RDW 15.4 11.5 - 14.5 09/13/2011 [facility] HEMATOLOGY MCH 31.0 27.0 - 31.0 09/13/2011 Normal [facility] HEMATOLOGY MCHC 33.5 32.0 - 36.0 09/13/2011 Normal [facility] HEMATOLOGY Platelet 289 133 - 450 09/13/2011 [facility] HEMATOLOGY MPV 7.4 7.4 - 10.4 09/13/2011 [facility] HEMATOLOGY WBC 10.8 3.7 - 10.4 09/13/2011 [facility] HEMATOLOGY Hgb 10.7 14.0 - 18.0 09/13/2011 LOW [facility] HEMATOLOGY Hct 32.1 42.0 - 54.0 09/13/2011 [facility] HEMATOLOGY RBC 3.47 4.70 - 6.10 09/13/2011 [facility] HEMATOLOGY MCV 92.6 80.0 - 94.0 09/13/2011 [facility] CHEMISTRY Calcium Lvl 8.8 8.5 - 10.5 09/12/2011 [facility] CHEMISTRY Glucose Lvl 84 09/12/2011 NA <sup>3</sup>Interpretive Data: Reference Ranges : 0 - 7 days : 41 - 90 mg/dL 7 days - 150 yrs : 70 - 99 mg/dL (fasting), based on the clinical recommendations of the [place] [employer]. [facility] CHEMISTRY BUN 21 7 - 22 09/12/2011 Normal [facility] CHEMISTRY Sodium Lvl 138 135 - 145 09/12/2011 [facility] CHEMISTRY Potassium Lvl 4.2 3.5 - 5.1 09/12/2011 [facility] CHEMISTRY Chloride Lvl 102 95 - 109 09/12/2011 [facility] CHEMISTRY CO2 30 24 - 32 09/12/2011 [facility] CHEMISTRY Creatinine Lvl 0.7 0.5 - 1.4 09/12/2011 [facility] CHEMISTRY AGAP 10.2 10.0 - 20.0 09/12/2011 [facility] HEMATOLOGY Hgb 10.5 14.0 - 18.0 09/12/2011 [facility] [place] HEMATOLOGY MCV 92.5 80.0 - 94.0 09/12/2011 [facility] HEMATOLOGY Hct 32.1 42.0 - 54.0 09/12/2011 [facility] [place] HEMATOLOGY MCHC 32.5 32.0 - 36.0 09/12/2011 [facility] HEMATOLOGY MCH 30.1 27.0 - 31.0 09/12/2011 [facility] HEMATOLOGY RDW 15.3 11.5 - 14.5 09/12/2011 [facility] HEMATOLOGY MPV 7.1 7.4 - 10.4 09/12/2011 [facility] [place] HEMATOLOGY Platelet 303 133 - 450 09/12/2011 [facility] HEMATOLOGY WBC 8.7 3.7 - 10.4 09/12/2011 [facility] HEMATOLOGY RBC 3.47 4.70 - 6.10 09/12/2011 [facility] HEMATOLOGY Lymphocytes # 2.4 1.0 - 5.5 09/12/2011 [facility] HEMATOLOGY Segs-Bands # 5.1 1.5 - 8.1 09/12/2011 [facility] HEMATOLOGY Basophils 0.5 0.0 - 1.0 09/12/2011 [facility] HEMATOLOGY Eosinophils # 0.3 0.0 - 0.5 09/12/2011 [facility] HEMATOLOGY Monocytes # 0.9 0.0 - 0.8 09/12/2011 [facility] HEMATOLOGY Eosinophils 3.5 0.0 - 4.0 09/12/2011 [facility] HEMATOLOGY Lymphocytes 27.5 20.0 - 40.0 09/12/2011 Normal [facility] HEMATOLOGY Segs 58.0 45.0 - 75.0 09/12/2011 Normal [facility] HEMATOLOGY Monocytes 10.5 2.0 - 12.0 09/12/2011 Normal [facility] CHEMISTRY Glucose Lvl 87 09/11/2011 NA <sup>4</sup>Interpretive Data: Reference Ranges : 0 - 7 days : 41 - 90 mg/dL 7 days - 150 yrs : 70 - 99 mg/dL (fasting), based on the clinical recommendations of the [place] [employer]. [facility] CHEMISTRY BUN 22 7 - 22 09/11/2011 Normal [facility] CHEMISTRY Creatinine Lvl 0.7 0.5 - 1.4 09/11/2011 Normal [facility] CHEMISTRY Chloride Lvl 101 95 - 109 09/11/2011 Normal [facility] CHEMISTRY Sodium Lvl 139 135 - 145 09/11/2011 [facility] CHEMISTRY Potassium Lvl 4.3 3.5 - 5.1 09/11/2011 Normal [facility] CHEMISTRY Bili Total 0.2 0.2 - 1.3 09/11/2011 Normal [facility] CHEMISTRY Alk Phos 79 39 - 136 09/11/2011 Normal [facility] CHEMISTRY AST 34 0 - 37 09/11/2011 Normal [facility] CHEMISTRY ALT 37 0 - 65 09/11/2011 Normal [facility] CHEMISTRY Albumin Lvl 2.4 3.5 - 5.0 09/11/2011 LOW [facility] CHEMISTRY Total Protein 7.2 6.4 - 8.4 09/11/2011 Normal [facility] CHEMISTRY CO2 29 24 - 32 09/11/2011 [facility] CHEMISTRY Calcium Lvl 8.5 8.5 - 10.5 09/11/2011 [facility] CHEMISTRY A/G Ratio 0.5 0.7 - 1.6 09/11/2011 LOW [facility] CHEMISTRY Globulin 4.8 2.0 - 4.0 09/11/2011 [facility] CHEMISTRY AGAP 13.3 10.0 - 20.0 09/11/2011 [facility] CHEMISTRY B/C Ratio 31 6 - 25 09/11/2011 [facility] HEMATOLOGY Monocytes 10.1 2.0 - 12.0 09/11/2011 [facility] HEMATOLOGY Eosinophils # 0.3 0.0 - 0.5 09/11/2011 Normal [facility] HEMATOLOGY Basophils # 0.1 0.0 - 0.2 09/11/2011 Normal [facility] HEMATOLOGY Lymphocytes 36.9 20.0 - 40.0 09/11/2011 Normal [facility] HEMATOLOGY Segs 47.7 45.0 - 75.0 09/11/2011 Normal [facility] HEMATOLOGY Monocytes # 0.7 0.0 - 0.8 09/11/2011 Normal [facility] HEMATOLOGY Lymphocytes # 2.6 1.0 - 5.5 09/11/2011 Normal [facility] HEMATOLOGY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 Post procedure chest radiograph showed the catheter tip in good position at the cavoatrial junction. The patient was subsequently transferred back to his hospital room in stable condition. Spot imaging of the ultrasound was done. [id number] 01/20/2018 [facility] Bone scan 3 phase NM TRIPLE PH ASE BONE SCAN OF THE PELVIS TECHNIQUE: The patient was injected with 26 mCi technetium 99m MDP intravenously and rapid sequence imaging of the pelvis were obtained. Immediate blood pool images were obtained. Delayed images were obtained 4 hours post injection. Left arm injection. HISTORY: Stage II decubitus sacral wound COMPARISON: MRI pelvis dated 09/12/2017 and MRI sacrum dated 09/10/2017 FINDINGS: Mildly increased radiotracer uptake in the region of the left ischium on flow and blood pool images. Small area of more well-defined increased radiotracer uptake in the junction of the left ischium and left posterior acetabulum on delayed phase imaging compatible with persistent left ischial osteomyelitis. No increased radiotracer uptake in the sacrum or coccyx to suggest ostomy myelitis in this location. IMPRESSION: Persistent mild left ischial osteomyelitis. SL: [id number] 01/16/2018 [facility] Foot series DX Foot series DX CLINICAL HISTORY: - infection COMPARISON: FINDINGS/IMPRESSION: 3 views of the right foot are submitted for review. Probable resection of distal third of right fifth metatarsal bone. There is no definite evidence for bony destruction. Soft tissue defect along the fibular aspect of right foot is likely largely postsurgical. If clinically indicated, further evaluation may be obtained with a three-phase bone scan. There is soft tissue swelling noted along the dorsum of the right foot. No radiopaque foreign body is visualized. There is generalized osteopenia. SL: [id number] 01/15/2018 [facility] Ankle 3 views DX Ankle 3 views DX COMPARISON: 05/22/2017 CLINICAL HISTORY: - infection FINDINGS/IMPRESSION: 3 views of the right ankle are submitted for review. There is extensive soft tissue swelling at the ankle bilaterally, more pronounced laterally. Soft tissue ulceration is noted laterally at the ankle. There is chronic deformity of the right lateral malleolus. Small chronic avulsion fracture is similar in appearance to previous study. There is bony irregularity along the distal inferior aspect of the lateral malleolus. Findings suggestive of osteomyelitis. Further evaluation may be obtained with a three- phase bone scan as clinically indicated. There is generalized osteopenia. No radiopaque foreign body is noted. SL: [id number] 01/15/2018 [facility] Chest 1view DX Clinical Indica tion:32 years Male with - back pain Comparison: Chest x-ray 10/06/2017 FINDINGS: Lines: None. The single frontal chest radiograph shows normal lung volumes. Linear right basilar opacities. No pleural effusion. No pneumothorax. Cardiac silhouette is normal. Pulmonary vasculature is normal. The trachea is midline. There are no acute osseous abnormalities noted. Metallic fragments overlie the medial right hemidiaphragm IMPRESSION: 1. No new acute cardiopulmonary abnormal ities. 2. Persistent linear opacities in the ri ght lung base and infrahilar region, likely scarring or atelectasis. 01/15/2018 [facility] Liver US EXAM: US ABDOMEN LIMI JEFF DATE: 10/16/2017 3:17 PM CDT INDICATION: Chronic hep C ADDITIONAL INFORMATION: None. COMPARISON: None. TECHNIQUE: Multiplanar grayscale and color Doppler ultrasound of the right upper quadrant. FINDINGS: Liver: Craniocaudal length: 19.0 cm. Echogenicity: Normal. Surface: Normal. Mass (size and location): None. Main portal vein: Caliber: 1.0 cm. Flow: Hepatopetal. Bile ducts: Common bile duct diameter: 0.23 cm. Intrahepatic ducts: Normal. Gallbladder: Not visualized. Pancreas: Not visualized. Spleen: 15.2 x 4.7 x 3.4 cm Free fluid: None. Other: None. IMPRESSION: 1. Normal abdominal ultrasound. 10/16/2017 [facility] Chest 1view DX EXAM: XR CHEST 1 VIEW DATE: 10/06/2017 6:49 PM 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 INDICATION: - productive cough COMPARISON: September 09, 2017 TECHNIQUE: AP chest FINDINGS: There is interval placement of a right internal jugular central venous catheter terminating at the SVC/atrial junction. No evidence of pneumothorax given the limitation of semierect technique. Atelectasis is noted in the right lung base. The lungs are otherwise clear. The costophrenic angle is blunted on the right side, suggesting small right pleural effusion. The cardiomediastinal silhouette is within normal limits. IMPRESSION: 1. Interval placement of a right interna l jugular central venous catheter terminating at the SVC/atrial junction. No evidence of pneumothorax given the limitation of the technique. 2. Right basilar atelectasis and small r ight pleural effusion. 10/06/2017 [facility] Shoulder series DX EXAM: XR LE FT SHOULDER 3 VIEWS DATE: 10/02/2017 at 6:12 PM 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 INDICATION: - left shoulder pain COMPARISON: Chest 1 view on 09/09/2017. TECHNIQUE: AP views in internal and external rotation, and an axillary view of the shoulder FINDINGS: No acute fracture or malalignment is identified. No soft tissue abnormality is identified. IMPRESSION: No radiographic abnormality the left shoulder. 10/02/2017 [facility] CVC insert tunnel w/-w/o port/pump age 5+ yrs VR STUDY: Prone line placement DATE: 09/17/2017 3:38 PM 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 INDICATION(S): Long-term access for IV antibiotics. PROCEDURE(S) PERFORMED: Prone line placement WAXING MACHINE OPERATOR: Dr. Avila NET DEVELOPER CONSULTANT(S): On CONSENT: Written consent obtained after discussing the indications, procedure, potential benefits, alternatives and risks SEDATION/PAIN CONTROL: Moderate conscious sedation was administered by a dedicated nurse under my supervision. There was continuous monitoring of BP, pulse and oxygen saturation. Sedation time: 30 minutes COMPLICATIONS: None FLUOROSCOPIC TIME: 1.3 minutes RADIATION DOSE: 18.1 mGy FINDINGS: Written consent was obtained the patient was placed supine in the right neck and chest were then prepped and draped the usual sterile fashion. Satisfactory anesthesia was obtained with 1% local lidocaine and moderate sedation. For details please see the nursing record. The vital signs were monitored by dedicated nurse. Timeout was performed. Under real-time ultrasound guidance the right IJ was punctured and a wire was advanced into the right atrium. Images were obtained and sent to PACS. The micropuncture sheath was then placed and a 2nd wire was advanced into the IVC under direct fluoroscopic control. Attention was then brought to the right infraclavicular space and a 6- [place]se double lumen probably line was then brought through the subcutaneous tunnel into the venous puncture wound and was cut to the appropriate length which was 21 cm. The right IJ sheath was then replaced with a peel-away sheath and the catheter was then brought through it with the tip in the right atrium. Both lumens were found to be flushing and aspirating well. The catheter was then secured at the skin exit side with 2 Prolene sutures and the venous puncture wound was closed using a 3-0 Vicryl suture. A sterile dressing was then applied. IMPRESSION: Right IJ proline placement. Dr. Soto, IR Attending, was present for the procedure. 09/17/2017 [facility] Pelvis w/wo contrast MRI EXAM: MR PELVIS WITH AND WITHOUT CONTRAST DATE: 09/11/2017 9:08 AM 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 INDICATION: - looking for osteomyelitis at ischial tuberosity COMPARISON: Correlation with spine and sacrum with and without contrast MRI to 09/10/2017 TECHNIQUE: Multiplanar, multisequence noncontrast imaging of the pelvis IV contrast: 14 mL MultiHance. FINDINGS: Bones: There is decreased T1 signal with restricted diffusion involving the left ischial tuberosity extending to the posterior acetabulum. Abnormal enhancement and edema is also identified within the visualized bone. Trace effusion is seen in the left hip. Soft tissues: Decubitus ulcers are seen adjacent to the bilateral ischial tuberosities. No organized/drainable fluid collection. Muscles: There is mild edema involving the left obturator internus and externus muscle. No other muscular edema, fluid collection or atrophy. Tendons: No focal tendon signal abnormality, or evidence for tenosynovitis. Others: Urinary bladder is decompressed with suprapubic catheter in situ. Multiple prominent lymph nodes are seen in bilateral inguinal regions and iliac groups. IMPRESSION: 1.Findings are suggestive of osteomyelit is of left ischial tuberosity extending to the posterior acetabulum. Decubitus ulcers are seen adjacent to the bilateral ischial tuberosities. 2. Normal signal involving the left obtu rator internus and externus muscle, likely reactive. 3. Trace left hip joint effusion. No org anized/drainable fluid collections. 4. Multiple prominent lymph nodes in jr ateral inguinal regions and iliac groups, likely reactive. 09/12/2017 [facility] Spine Sacrum w/wo contrast MRI EXAMINATION: MRI sacrum with and without contrast DATE: 09/10/2017 INDICATION: Suspected osteomyelitis. FINDINGS: Multiplanar multisequence MRI images of sacrum are performed both before and after intravenous administration of 14 cc gadolinium contrast. Comparison is made to an exam of the pelvis dated 02/28/2017 The sacrum demonstrates normal marrow signal. There is no epidural or marrow enhancement. Chronic changes of debridement of the distal sacral segments and coccyx with overlying fatty soft tissue graft for flap again noted. There are no inflammatory changes in that region. Images at the edge of the field of view demonstrate persistent marrow edema in the left ischium and effusion of the left hip joint. There is also edema in the left obturator internus. There is some asymmetric signal change and edema in the left iliacus muscle. Previously noted findings of osteomyelitis in the initial tuberosity are not [id number] of this examination. IMPRESSION: Normal examination of the sacrum and overlying soft tissues. There are findings suggestive of continued inflammation in the left issue him and in the left hip joint. Examination of the entire pelvis and/or hips required for further evaluation. 09/10/2017 [facility] Chest 1view DX EXAM: XR CHEST 1 VIEW DATE: 09/09/2017 10:48 PM 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 INDICATION: - Undifferentiated Sepsis COMPARISON: May 22, 2017 TECHNIQUE: AP chest, supine, 2 images. FINDINGS: Study is limited by patient rotation and low lung volumes. Lungs and pleura: Bilateral infrahilar opacities are seen. No pleural fluid or pneumothorax is identified, within the limits of a supine exam. Heart and mediastinum: Unchanged. Bones and soft tissues: Unchanged. IMPRESSION: Study is limited by low lung volumes and patient rotation. Bilateral infrahilar opacities likely represent subsegmental atelectasis, although superimposed early/atypical infection is not excluded. 09/09/2017 [facility] PICC insert with or without port VR Nontunneled central venous catheter placement, 05/28/2017 7:00 AM CDT CLINICAL HISTORY: Multitude of bilateral upper extremity PICC's and bilateral jugular vein axis is in the past; requiring long-term IV access PROCEDURE: Informed consent was obtained from the patient, after which the patient was brought into the examination suite and placed in a supine position on the fluoroscopy table. Right upper extremity was scanned, demonstrating a deep brachial vein is compressible, however, its entire course is not clearly visualized. Therefore, the right internal jugular vein was sonographically imaged, demonstrating color flow and compressibility, and therefore patency. Right side of the neck was prepped and draped utilizing all elements of maximal barrier sterile technique. Under sonographic guidance, lidocaine 1% was injected into a focus of skin into the deeper soft tissues overlying the right internal jugular vein. Under sonographic guidance, 21-gauge micropuncture needle was advanced into the right internal jugular vein. Sonographic image of venipuncture was placed in the patient's EMR. [place] mandril microguidewire was advanced through the needle and into the patient's SVC, needle was removed, and 5-[place]orese conversion sheath was advanced over the wire. The guidewire and inner elements were removed. 0.035 inch J-wire was advanced through the microcatheter conversion sheath and into the right cardiac circulation. Tract was dilated over the guidewire and a trimmed double- lumen 6-[place] Bard catheter was advanced over the guidewire and into the patient under fluoroscopic visualization. Guidewire was removed. Catheter ports were easily aspirateable and flushable. Catheter was secured to the skin with suture. Final chest radiograph acquisition was performed, demonstrating appropriate positioning of the right IJ CVC with the tip at the right atrial/SVC junction. COMPLICATIONS: None ANESTHESIA: Lidocaine 1%, subcutaneous PHARM TECH: Dr. Knight FLUOROSCOPY TIME: 0.3 minutes IMPRESSION: Successful nontunneled right internal jugular central venous catheter placement. Catheter is ready for use. SL: [id number] CVC 05/28/2017 [facility] Abdomen AP DX Clinical Indicat ion: - nausea and vomiting Comparison: 01/01/2017 FINDINGS: The AP supine view of the abdomen shows a non-obstructive bowel gas pattern. There is no abnormal dilatation of bowel loops. There is no pneumatosis or mass effect. There is no gross evidence for pneumoperitoneum. There are no radiopaque densities noted. There are no clinically significant osseous abnormalities noted. IMPRESSION: 1. Unremarkable abdomen. SL: [id number] 05/27/2017 [facility] Brain wo contrast CT Clinical Indication: Severe headache Comparison: 08/30/2016 TECHNIQUE: CT images were obtained from the foramen magnum to the vertex without the use of intravenous contrast on a multidetector CT. Coronal and sagittal reconstructions were obtained. CT radiation dose DLP: 862.95 mGy-cm FINDINGS: BRAIN PARENCHYMA: There are normal hurley-white interfaces, sulci and gyri. There are no focal mass lesions on this noncontrast head CT. There is no mass effect, midline shift or edema. There are no intra-axial or extra-axial fluid collections, intraventricular or intraparenchymal hemorrhage. The pineal, sellar, brainstem, cerebellum and skull base regions appear unremarkable. VENTRICLES: The lateral ventricles, third and fourth ventricles appear unremarkable. The basilar cisterns are normal. ORBITS, MASTOIDS AND PARANASAL SINUSES: The visualized orbits and paranasal sinuses are unremarkable. The mastoid air cells are clear. SKULL: There are no osseous abnormalities. If there is further concern for intracranial pathology or acute stroke, MRI of the brain may be performed for complete assessment. IMPRESSION: Unremarkable noncontrast head CT with no mass, hemorrhage or subacute stroke. SL: [id number] 05/26/2017 [facility] Chest 1view DX Portable chest radiograph 1 view INDICATION: Fever and sepsis COMPARISON: 02/23/2017 IMPRESSION: Low lung volumes. Mild bibasilar atelectasis. No large pleural effusion or pneumothorax. Heart size is not well assessed. Metallic debris in the lower mediastinum/upper abdomen are redemonstrated. 05/22/2017 [facility] Ankle 3 views DX XR RIGHT ANKL E 3V HISTORY: eval for osteomyelitis - COMPARISON: Right ankle 11/07/2016. FINDINGS: AP, lateral and oblique images of the right ankle. The bones are demineralized. Chronic linear calcification along the lateral border of the distal fibula. No acute fracture or dislocation. No erosive change or periosteal reaction. Soft tissue swelling noted. No evidence of soft tissue gas or an opaque foreign body. IMPRESSION: 1. Soft tissue swelling without radiogra phic evidence of osteomyelitis. 2. An old avulsion fracture fragment sug gested along the lateral border of the lateral malleolus. 3. Osteopenia. SL: [id number] 05/22/2017 [facility] Foot series DX XR RIGHT FOOT 3 V HISTORY: eval for osteomyelitis -. COMPARISON: Right foot radiographs 09/25/2016. FINDINGS: AP, lateral and oblique images of the right foot demonstrate acute bone or joint abnormality. Diffuse soft tissue swelling noted. No soft tissue gas, erosive change or periosteal reaction. Chronic erosion of the distal 5th metatarsal. IMPRESSION: 1. Diffuse soft tissue swelling. 2. No radiographic evidence of acute ost eomyelitis. 3. Osteopenia. SL : Gunner 05/22/2017 [facility] Retroperitoneal limited US EXA M: US RENAL DATE: 02/28/2017 7:42 AM CDT INDICATION: - hydronephrosis COMPARISON: Retroperitoneal ultrasound 11/28/2016; CT abdomen pelvis with IV contrast 02/23/2017. Additional information: History of right nephrectomy. TECHNIQUE: Multiplanar grayscale and color Doppler ultrasound of the kidneys and urinary bladder. FINDINGS: Right kidney: Empty renal fossa due to right nephrectomy. Left kidney: Size: 11.9 x 6.2 x 5.3 cm. Hydronephrosis: Mild pelvocaliectasis. Echogenicity: Normal. Calculi: None. Cysts/Masses: None. Bladder: Decompressed bladder is visualized surrounding a suprapubic catheter. Free fluid: None. IMPRESSION: 1. Mild hydronephrosis improved compare d to retroperitoneal ultrasound 11/28/2016. 02/28/2017 [facility] Pelvis w/wo contrast MRI EXAM: MR PELVIS WITH AND WITHOUT CONTRAST DATE: 02/25/2017 10:43 AM CDT INDICATION: - rule out osteo COMPARISON: TECHNIQUE: Multiplanar, multisequence noncontrast imaging of the pelvis. IV contrast: 15 ml MultiHance. FINDINGS: Bones: There is decreased T1 signal, increased T2 signal involving the left ischial tuberosity and posterior acetabulum of the left side. Restricted diffusion and abnormal contrast enhancement is also seen. No decreased T1 signal, abnormal enhancement or edema is seen within the rest of the visualized bones. Soft tissues: Decubitus ulcers are seen on bilateral sacral region. No organized/drainable fluid collection. Muscles: All the pelvic muscles are atrophic with mild diffuse edema. No definite focal collection is seen. Tendons: Left hamstring tendon appears degenerated with some fluid collection at its insertion. No focal tendon signal abnormality, or evidence for tenosynovitis in other tendons. Others: A suprapubic catheter is seen in situ. The urinary bladder wall appears thickened. IMPRESSION: 1. Findings suggestive of osteomyelitis of left ischial tuberosity and posterior acetabulum. 2. Degenerated left hamstring tendon wit h some fluid collection in the bursa at its insertion suggestive of bursitis/tendinitis. 3. Diffuse atrophy of muscles around jr ateral lower hip with mild diffuse edema. 4. No organized/drainable fluid collecti on. 02/28/2017 [facility] CVC insert tunnel w/-w/o port/pump age 5+ yrs VR STUDY: VIR CV Catheter Placement Tunneled DATE: 02/27/2017 7:58 AM CDT INDICATION(S): venous access - venous access. 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 PROCEDURE(S) PERFORMED: Ultrasound and fluoroscopic guided placement of a 6 [place] dual lumen proline catheter into the right internal jugular vein. The line is ready for immediate use. WAXING MACHINE OPERATOR: Dr Sherman NET DEVELOPER CONSULTANT(S): None CONSENT: Written consent obtained after discussing the indications, procedure, potential benefits, alternatives and risks SEDATION/PAIN CONTROL: Dilaudid administered as analgesia which for the procedure. PROCEDURE IN DETAIL: The patient was brought into interventional suite and placed supine. Preliminary ultrasound of the right neck confirmed patent and compressible right internal jugular vein. The right neck and right anterior chest was thoroughly prepped using the usual sterile technique. Lidocaine 1% used as local anesthetic. Using real-time ultrasound guidance, the right internal jugular vein was punctured using a micropuncture set the system was upsized in the usual manner to accept a 0.018 wire. Images of the needle in the vein were saved to PACS and the patient's medical record. Attention was then brought to the right infraclavicular area. An appropriate entry point for tunnel was selected and lidocaine 1% generously injected. The appropriate length catheter was tunneled through the chest wall to the venotomy access point. The venotomy site was serially dilated to accept a 7F peel-away sheath. The proline catheter was successfully fed over the peel-away sheath into the right internal jugular vein. The catheter tip lies just within the right atrium. The catheter was tethered to the skin using 2-0 Prolene and the venotomy site sutured using Vicryl. A sterile antibiotic loaded dressing was applied to the chest wall tunnel entry area and the venotomy dressed using primapore. Both ports flushed well and were locked with heparin. The catheter is ready for immediate use. FINDINGS: 1. Patent and compressible right interna l jugular vein. 2. Successful placement of 6 [place] righ t internal gastrointestinal vein proline catheter. COMPLICATIONS: None. ESTIMATED BLOOD LOSS: None FLUOROSCOPIC TIME: < 0.01 minutes RADIATION DOSE: 0.2 mGy CONTRAST VOLUME: None mL IMPRESSION: Successful ultrasound and fluoroscopic guided placement of a right internal jugular vein 6 [place] dual lumen tunneled proline catheter. The line is ready for immediate use. PLAN/FOLLOW UP: No Interventional Radiology department follow up required. Dr. Sherman, IR Attending, was present for the procedure. 02/27/2017 [facility] Abdomen/Pelvis w IV contrast CT EXAM: CT ABDOMEN AND PELVIS WITH CONTRAST DATE: 02/23/2017 3:40 PM CDT INDICATION: - multiple stage IV sacral decubs ADDITIONAL INFORMATION: None. COMPARISON: CT abdomen pelvis 12/04/[address] abdomen pelvis 11/07/2016 TECHNIQUE: Volumetric CT acquisition of the abdomen and pelvis after the intravenous administration contrast. Axial, coronal and sagittal reconstructions. IV CONTRAST: 100 mL of Visipaque 320 ORAL CONTRAST: None RADIATION DOSE: Total DLP: 1046 mGy*cm Estimated effective dose: DLP x 0.015 mSv COMPLICATIONS: None FINDINGS: Lines and tubes: Left internal nephroureteral stent. Suprapubic catheter. Lower thorax: Minimal bibasilar atelectasis. Liver: Redemonstrated segment 5 peripheral calcification, which could be related to prior subcapsular hematoma or infection. No hypervascular hepatic lesions. Mild periportal edema. Biliary tree: No intra- or extrahepatic biliary ductal dilation. Gallbladder: Not well-visualized. Pancreas: No ductal dilatation. No peripancreatic stranding. No obvious focal lesions. Spleen: No splenomegaly or focal lesions. Adrenals: No nodules. Kidneys and ureters: Postsurgical changes related to right nephrectomy with no fluid collections or definite lesions in the nephrectomy bed. The solitary left kidney demonstrates no significant hydronephrosis with mild pelvocalyceal dilatation. A left intact internal nephroureteral stent is visualized with proximal loop near the renal pelvis and distal loop located more inferiorly in the region of the likely prostatic urethra. No significant stent encrustation. No definite left hydroureter. A couple left inferior pole renal stones. In the delayed phase, there is trace secretion into the renal collecting systems. Bladder: Partially collapsed secondary to placement of a suprapubic catheter. Reproductive organs: Distal loop of left internal nephroureteral stent in the likely region of the prostatic urethra. Gastrointestinal tract: The stomach is partially distended gastric contents. No small or large bowel obstruction. Moderate stool burden. Appendix partially visualized and within normal limits in caliber. No right lower quadrant fluid collections stranding. Left lower quadrant colostomy. Peritoneum and retroperitoneum: No ascites or free air. Lymph nodes: Subcentimeter retroperitoneal lymph nodes likely reactive. No definite pelvic lymphadenopathy. Vasculature: Visualized abdominal aorta and IVC within normal limits in caliber. Portal system is intact. Persistent prominence of multiple left-sided pelvic collaterals which may suggest a component of prior deep venous thrombosis of the left common iliac vein which is slitlike. 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 [facility] Systolic (mm Hg) 123 08/23/2016 [facility] Diastolic (mm Hg) 84 08/23/2016 [facility] Temperature Oral (F) 98.1 F 08/23/2016 [facility] Heart Rate 91 08/23/2016 [facility] Systolic (mm Hg) 106 08/23/2016 [facility] Diastolic (mm Hg) 70 08/23/2016 [facility] Respitory Rate 18 08/23/2016 [facility] Temperature Oral (F) 98.7 F 08/23/2016 [facility] Heart Rate 91 08/23/2016 [facility] Respitory Rate 18 08/23/2016 [facility] Systolic (mm Hg) 104 08/23/2016 [facility] Diastolic (mm Hg) 66 08/23/2016 [facility] Systolic (mm Hg) 105 08/23/2016 [facility] Diastolic (mm Hg) 56 08/23/2016 [facility] Heart Rate 95 08/23/2016 [facility] Temperature Oral (F) 98.2 F 08/23/2016 [facility] Respitory Rate 18 08/23/2016 [facility] Weight 70.455 08/12/2016 [facility] BMI Calculated 25.07 08/11/2016 [facility] Height 167.64 cm 08/11/2016 [facility] Weight 70.455 08/11/2016 [facility] Systolic (mm Hg) 103 08/11/2016 [facility] Diastolic (mm Hg) 65 08/11/2016 [facility] Temperature Oral (F) 98.0 F 08/11/2016 [facility] Systolic (mm Hg) 95 08/11/2016 [facility] Diastolic (mm Hg) 29 08/11/2016 [facility] Temperature Oral (F) 98.2 F 08/11/2016 [facility] Height 170.18 cm 08/11/2016 [facility] BMI Calculated 24.33 08/11/2016 [facility] Weight 70.455 08/11/2016 [facility] Systolic (mm Hg) 133 08/11/2016 [facility] Diastolic (mm Hg) 78 08/11/2016 [facility] Respitory Rate 16 08/11/2016 [facility] Heart Rate 83 08/11/2016 [facility] Systolic (mm Hg) 140 08/10/2016 [facility] Diastolic (mm Hg) 89 08/10/2016 [facility] Respitory Rate 18 08/10/2016 [facility] Heart Rate 70 08/10/2016 [facility] Systolic (mm Hg) 149 08/10/2016 [facility] Diastolic (mm Hg) 90 08/10/2016 [facility] Respitory Rate 18 08/10/2016 [facility] Heart Rate 69 08/10/2016 [facility] Respitory Rate 18 08/10/2016 [facility] Temperature Oral (F) 98 F 08/10/2016 [facility] Heart Rate 64 08/10/2016 [facility] Weight 77.273 08/10/2016 [facility] Systolic (mm Hg) 134 08/10/2016 [facility] Diastolic (mm Hg) 71 08/10/2016 [facility] Systolic (mm Hg) 106 06/12/2016 [facility] Diastolic (mm Hg) 71 06/12/2016 [facility] Heart Rate 109 06/12/2016 [facility] Respitory Rate 18 06/12/2016 [facility] Temperature Oral (F) 98.3 F 06/12/2016 [facility] Respitory Rate 18 06/12/2016 [facility] Systolic (mm Hg) 126 06/12/2016 [facility] Diastolic (mm Hg) 74 06/12/2016 [facility] Temperature Oral (F) 98.6 F 06/12/2016 [facility] Heart Rate 111 06/12/2016 [facility] Heart Rate 93 06/12/2016 [facility] Respitory Rate 18 06/12/2016 [facility] Systolic (mm Hg) 110 06/12/2016 [facility] Diastolic (mm Hg) 64 06/12/2016 [facility] Temperature Oral (F) 98.1 F 06/12/2016 [facility] Weight 83.182 06/01/2016 [facility] Height 182.88 cm 06/01/2016 [facility] BMI Calculated 24.87 06/01/2016 [facility] BMI Calculated 21.75 06/01/2016 [facility] Weight 72.727 06/01/2016 [facility] Height 182.88 cm 06/01/2016 [facility] Heart Rate 73 01/13/2016 [facility] Temperature Oral (F) 98.5 F 01/13/2016 [facility] Systolic (mm Hg) 143 01/13/2016 [facility] Diastolic (mm Hg) 85 01/13/2016 [facility] Respitory Rate 20 01/13/2016 [facility] Heart Rate 71 01/13/2016 [facility] Respitory Rate 18 01/13/2016 [facility] Systolic (mm Hg) 127 01/13/2016 [facility] Diastolic (mm Hg) 77 01/13/2016 [facility] Temperature Oral (F) 98.0 F 01/13/2016 [facility] Respitory Rate 18 01/13/2016 [facility] Systolic (mm Hg) 127 01/13/2016 [facility] Diastolic (mm Hg) 88 01/13/2016 [facility] Heart Rate 112 01/13/2016 [facility] Temperature Oral (F) 97.5 F 01/13/2016 [facility] Weight 70.455 01/13/2016 [facility] Temperature Oral (F) 98.0 F 01/12/2016 [facility] Systolic (mm Hg) 118 01/12/2016 [facility] Diastolic (mm Hg) 74 01/12/2016 [facility] Heart Rate 98 01/12/2016 [facility] Respitory Rate 20 01/12/2016 [facility] Systolic (mm Hg) 121 01/12/2016 [facility] Diastolic (mm Hg) 69 01/12/2016 [facility] Respitory Rate 18 01/12/2016 [facility] Heart Rate 83 01/12/2016 [facility] Temperature Oral (F) 98.3 F 01/12/2016 [facility] Systolic (mm Hg) 112 01/12/2016 [facility] Diastolic (mm Hg) 75 01/12/2016 [facility] Respitory Rate 18 01/12/2016 [facility] Heart Rate 119 01/12/2016 [facility] Temperature Oral (F) 97.8 F 01/12/2016 [facility] Height 182.88 cm 01/01/2016 [facility] BMI Calculated 20.99 01/01/2016 [facility] Weight 70.2 01/01/2016 [facility] Weight 65.909 01/01/2016 [facility] Height 182.88 cm 01/01/2016 [facility] BMI Calculated 19.71 01/01/2016 [facility] Heart Rate 103 10/20/2015 [facility] Respitory Rate 18 10/20/2015 [facility] Systolic (mm Hg) 124 10/20/2015 [facility] Diastolic (mm Hg) 87 10/20/2015 [facility] Temperature Oral (F) 97.8 F 10/20/2015 [facility] Respitory Rate 18 10/20/2015 [facility] Systolic (mm Hg) 107 10/20/2015 [facility] Diastolic (mm Hg) 68 10/20/2015 [facility] Heart Rate 121 10/20/2015 [facility] Temperature Oral (F) 98.6 F 10/20/2015 [facility] Heart Rate 118 10/20/2015 [facility] Respitory Rate 18 10/20/2015 [facility] Systolic (mm Hg) 125 10/20/2015 [facility] Diastolic (mm Hg) 76 10/20/2015 [facility] Temperature Oral (F) 97.6 F 10/20/2015 [facility] BMI Calculated 23.1 10/19/2015 [facility] Weight 77.273 10/19/2015 [facility] Height 182.88 cm 10/19/2015 [facility] Systolic (mm Hg) 133 10/19/2015 [facility] Diastolic (mm Hg) 86 10/19/2015 [facility] Respitory Rate 20 10/19/2015 [facility] Heart Rate 111 10/19/2015 [facility] Heart Rate 107 10/19/2015 [facility] Systolic (mm Hg) 144 10/19/2015 [facility] Diastolic (mm Hg) 90 10/19/2015 [facility] Heart Rate 113 10/19/2015 [facility] Systolic (mm Hg) 125 10/19/2015 [facility] Diastolic (mm Hg) 84 10/19/2015 [facility] Respitory Rate 18 10/19/2015 [facility] Temperature Oral (F) 98.4 F 10/19/2015 [facility] Respitory Rate 20 10/19/2015 [facility] Temperature Oral (F) 98.4 F 10/19/2015 [facility] BMI Calculated 19.01 10/19/2015 [facility] Height 195.58 cm 10/19/2015 [facility] Weight 72.727 10/19/2015 [facility] Temperature Oral (F) 97.8 F 10/19/2015 [facility] Heart Rate 94 10/19/2015 [facility] Systolic (mm Hg) 114 10/19/2015 [facility] Diastolic (mm Hg) 76 10/19/2015 [facility] Respitory Rate 18 10/19/2015 [facility] Systolic (mm Hg) 102 10/18/2015 [facility] Diastolic (mm Hg) 62 10/18/2015 [facility] Heart Rate 86 10/18/2015 [facility] Respitory Rate 18 10/18/2015 [facility] Temperature Oral (F) 97.9 F 10/18/2015 [facility] Systolic (mm Hg) 93 10/18/2015 [facility] Diastolic (mm Hg) 60 10/18/2015 [facility] Heart Rate 74 10/18/2015 [facility] Respitory Rate 18 10/18/2015 [facility] Temperature Oral (F) 98.7 F 10/18/2015 [facility] BMI Calculated 20.39 10/16/2015 [facility] Weight 68.182 10/16/2015 [facility] Height 182.88 cm 10/16/2015 [facility] Respitory Rate 20 10/16/2015 [facility] Heart Rate 111 10/16/2015 [facility] Systolic (mm Hg) 104 10/16/2015 [facility] [facility] Diastolic (mm Hg) 69 10/16/2015 [facility] Temperature Oral (F) 98.5 F 10/16/2015 [facility] Heart Rate 107 10/16/2015 [facility] Respitory Rate 20 10/16/2015 [facility] Systolic (mm Hg) 103 10/16/2015 [facility] Diastolic (mm Hg) 72 10/16/2015 [facility] Temperature Oral (F) 98.5 F 10/16/2015 [facility] Temperature Oral (F) 97.6 F 10/16/2015 [facility] Heart Rate 107 10/16/2015 [facility] Respitory Rate 20 10/16/2015 [facility] Systolic (mm Hg) 100 10/16/2015 [facility] Diastolic (mm Hg) 65 10/16/2015 [facility] Weight 69.574 09/13/2015 [facility] BMI Calculated 20.8 09/13/2015 [facility] Height 182.88 cm 09/13/2015 [facility] Height 182.88 cm 09/13/2015 [facility] Weight 65.909 09/13/2015 [facility] BMI Calculated 19.71 09/13/2015 [facility] Weight 65.909 09/13/2015 [facility] BMI Calculated 19.71 09/13/2015 [facility] Height 182.88 cm 09/13/2015 [facility] Weight 63.6 09/12/2015 [facility] Heart Rate 108 09/12/2015 [facility] Temperature Oral (F) 97.8 F 09/12/2015 [facility] Systolic (mm Hg) 129 09/12/2015 [facility] Diastolic (mm Hg) 87 09/12/2015 [facility] Respitory Rate 18 09/12/2015 [facility] Temperature Oral (F) 97.5 F 09/12/2015 [facility] Systolic (mm Hg) 117 09/12/2015 [facility] Diastolic (mm Hg) 82 09/12/2015 [facility] Respitory Rate 20 09/12/2015 [facility] Heart Rate 128 09/12/2015 [facility] Height 182.88 cm 09/12/2015 [facility] BMI Calculated 19.03 09/12/2015 [facility] Weight 63.636 09/12/2015 [facility] Heart Rate 134 09/12/2015 [facility] Temperature Oral (F) 98.9 F 09/12/2015 [facility] Systolic (mm Hg) 123 09/12/2015 [facility] Diastolic (mm Hg) 78 09/12/2015 [facility] Respitory Rate 24 09/12/2015 [facility] Temperature Oral (F) 97.5 F 09/11/2015 [facility] Systolic (mm Hg) 132 09/11/2015 [facility] Diastolic (mm Hg) 80 09/11/2015 [facility] Heart Rate 126 09/11/2015 [facility] Respitory Rate 18 09/11/2015 [facility] Systolic (mm Hg) 124 09/11/2015 [facility] Diastolic (mm Hg) 85 09/11/2015 [facility] Heart Rate 84 09/11/2015 [facility] Respitory Rate 18 09/11/2015 [facility] Temperature Oral (F) 97.3 F 09/11/2015 [facility] Temperature Oral (F) 97.3 F 09/11/2015 [facility] Respitory Rate 16 09/11/2015 [facility] Heart Rate 91 09/11/2015 [facility] Systolic (mm Hg) 121 09/11/2015 [facility] Diastolic (mm Hg) 77 09/11/2015 [facility] BMI Calculated 19.71 09/07/2015 [facility] Weight 65.909 09/07/2015 [facility] Height 182.88 cm 09/07/2015 [facility] BMI Calculated 19.71 09/07/2015 [facility] Height 182.88 cm 09/07/2015 [facility] Weight 65.909 09/07/2015 [facility] Heart Rate 132 09/06/2015 [facility] Systolic (mm Hg) 103 09/06/2015 [facility] Diastolic (mm Hg) 70 09/06/2015 [facility] Respitory Rate 22 09/06/2015 [facility] Temperature Oral (F) 98.0 F 09/06/2015 [facility] Temperature Oral (F) 97.7 F 09/05/2015 [facility] Heart Rate 105 09/05/2015 [facility] Respitory Rate 18 09/05/2015 [facility] Systolic (mm Hg) 102 09/05/2015 [facility] Diastolic (mm Hg) 86 09/05/2015 [facility] Systolic (mm Hg) 108 09/05/2015 [facility] Diastolic (mm Hg) 67 09/05/2015 [facility] Respitory Rate 20 09/05/2015 [facility] Temperature Oral (F) 98.5 F 09/05/2015 [facility] Heart Rate 112 09/05/2015 [facility] BMI Calculated 19.71 08/25/2015 [facility] Weight 65.909 08/25/2015 [facility] Height 182.88 cm 08/25/2015 [facility] Weight 65.909 08/25/2015 [facility] Height 182.88 cm 08/25/2015 [facility] BMI Calculated 19.71 08/25/2015 [facility] Temperature Oral (F) 97.8 F 08/24/2015 [facility] Systolic (mm Hg) 127 08/24/2015 [facility] Diastolic (mm Hg) 77 08/24/2015 [facility] Heart Rate 84 08/24/2015 [facility] Temperature Oral (F) 97.8 F 08/24/2015 [facility] Heart Rate 83 08/24/2015 [facility] Systolic (mm Hg) 125 08/24/2015 [facility] Diastolic (mm Hg) 78 08/24/2015 [facility] Systolic (mm Hg) 115 08/24/2015 [facility] Diastolic (mm Hg) 73 08/24/2015 [facility] Heart Rate 84 08/24/2015 [facility] Temperature Oral (F) 97.5 F 08/24/2015 [facility] Respitory Rate 14 08/24/2015 [facility] Respitory Rate 18 08/24/2015 [facility] Respitory Rate 18 08/24/2015 [facility] Weight 69.8 08/09/2015 [facility] BMI Calculated 22.08 08/09/2015 [facility] Height 177.8 cm 08/09/2015 [facility] Weight 86.364 08/08/2015 [facility] BMI Calculated 25.82 08/08/2015 [facility] Height 182.88 cm 08/08/2015 [facility] Systolic (mm Hg) 116 06/21/2015 [facility] Diastolic (mm Hg) 73 06/21/2015 [facility] Temperature Oral (F) 97.9 F 06/21/2015 [facility] Respitory Rate 18 06/21/2015 [facility] Heart Rate 93 06/21/2015 [facility] Systolic (mm Hg) 136 06/21/2015 [facility] Diastolic (mm Hg) 82 06/21/2015 [facility] Respitory Rate 18 06/21/2015 [facility] Heart Rate 95 06/21/2015 [facility] Temperature Oral (F) 98.0 F 06/21/2015 [facility] Systolic (mm Hg) 105 06/21/2015 [facility] Diastolic (mm Hg) 70 06/21/2015 [facility] Temperature Oral (F) 98.1 F 06/21/2015 [facility] Respitory Rate 18 06/21/2015 [facility] Heart Rate 101 06/21/2015 [facility] Height 182.88 cm 06/17/2015 [facility] Weight 69.8 06/17/2015 [facility] BMI Calculated 20.87 06/17/2015 [facility] BMI Calculated 19.71 06/16/2015 [facility] Weight 65.909 06/16/2015 [facility] Height 182.88 cm 06/16/2015 [facility] Temperature Oral (F) 97.3 F 06/05/2015 [facility] Heart Rate 103 06/05/2015 [facility] Respitory Rate 16 06/05/2015 [facility] Systolic (mm Hg) 114 06/05/2015 [facility] Diastolic (mm Hg) 70 06/05/2015 [facility] Systolic (mm Hg) 122 06/05/2015 [facility] Diastolic (mm Hg) 78 06/05/2015 [facility] Respitory Rate 18 06/05/2015 [facility] Heart Rate 74 06/05/2015 [facility] Temperature Oral (F) 97.5 F 06/05/2015 [facility] Respitory Rate 18 06/05/2015 [facility] Heart Rate 96 06/05/2015 [facility] Temperature Oral (F) 97.4 F 06/05/2015 [facility] Systolic (mm Hg) 137 06/05/2015 [facility] Diastolic (mm Hg) 94 06/05/2015 [facility] Weight 71.001 05/28/2015 [facility] BMI Calculated 21.23 05/28/2015 [facility] Height 182.88 cm 05/28/2015 [facility] Height 177.8 cm 05/28/2015 [facility] BMI Calculated 19.03 05/27/2015 [facility] Weight 63.636 05/27/2015 [facility] Height 182.88 cm 05/27/2015 [facility] Diastolic (mm Hg) 82 06/29/2014 [facility] Heart Rate 83 06/29/2014 [facility] Systolic (mm Hg) 143 06/29/2014 [facility] Respitory Rate 18 06/29/2014 [facility] Temperature Oral (F) 97.9 F 06/29/2014 [facility] Diastolic (mm Hg) 79 06/29/2014 [facility] Respitory Rate 18 06/29/2014 [facility] Systolic (mm Hg) 139 06/29/2014 [facility] Temperature Oral (F) 97.8 F 06/29/2014 [facility] Heart Rate 70 06/29/2014 [facility] Heart Rate 66 06/29/2014 [facility] Respitory Rate 18 06/29/2014 [facility] Systolic (mm Hg) 146 06/29/2014 [facility] Diastolic (mm Hg) 97 06/29/2014 [facility] Temperature Oral (F) 97.6 F 06/29/2014 [facility] Weight 64.688 06/26/2014 [facility] BMI Calculated 23.02 06/26/2014 [facility] Height 167.64 cm 06/26/2014 [facility] Height 182.88 cm 06/26/2014 [facility] Weight 72.727 06/25/2014 [facility] BMI Calculated 25.11 06/25/2014 [facility] Height 170.18 cm 06/25/2014 [facility] Temperature Oral (F) 97.6 F 05/22/2012 [facility] Diastolic (mm Hg) 88 05/22/2012 [facility] Systolic (mm Hg) 133 05/22/2012 [facility] Respitory Rate 18 05/22/2012 [facility] Heart Rate 89 05/22/2012 [facility] Respitory Rate 17 05/22/2012 [facility] Diastolic (mm Hg) 66 05/22/2012 [facility] Systolic (mm Hg) 114 05/22/2012 [facility] Systolic (mm Hg) 106 05/22/2012 [facility] Diastolic (mm Hg) 75 05/22/2012 [facility] Respitory Rate 17 05/22/2012 [facility] Heart Rate 90 05/22/2012 [facility] Temperature Oral (F) 97.0 F 05/22/2012 [facility] Heart Rate 82 05/22/2012 [facility] Temperature Oral (F) 98.4 F 05/22/2012 [facility] Height 182.88 cm 05/16/2012 [facility] Weight 68.182 05/15/2012 [facility] Height 185.42 cm 05/15/2012 [facility] Heart Rate 69 02/28/2012 [facility] Diastolic (mm Hg) 73 02/28/2012 [facility] Systolic (mm Hg) 125 02/28/2012 [facility] Temperature Oral (F) 97.4 F 02/28/2012 [facility] Respitory Rate 19 02/28/2012 [facility] Diastolic (mm Hg) 80 02/28/2012 [facility] Systolic (mm Hg) 123 02/28/2012 [facility] Respitory Rate 20 02/28/2012 [facility] Heart Rate 73 02/28/2012 [facility] Temperature Oral (F) 97.1 F 02/28/2012 [facility] Systolic (mm Hg) 126 02/28/2012 [facility] Diastolic (mm Hg) 77 02/28/2012 [facility] Respitory Rate 20 02/28/2012 [facility] Temperature Oral (F) 97.6 F 02/28/2012 [facility] Heart Rate 79 02/28/2012 [facility] Height 182.88 cm 02/12/2012 [facility] Weight 57.000 02/12/2012 [facility] Weight 57.000 02/12/2012 [facility] Height 182.88 cm 02/12/2012 [facility] Weight 61.364 02/11/2012 [facility] Systolic (mm Hg) 122 01/05/2012 [facility] Diastolic (mm Hg) 80 01/05/2012 [facility] Heart Rate 72 01/05/2012 [facility] Temperature Oral (F) 97.4 F 01/05/2012 [facility] Respitory Rate 16 01/05/2012 [facility] Heart Rate 73 01/05/2012 [facility] Respitory Rate 16 01/05/2012 [facility] Systolic (mm Hg) 130 01/05/2012 [facility] Diastolic (mm Hg) 90 01/05/2012 [facility] Temperature Oral (F) 97.4 F 01/05/2012 [facility] Diastolic (mm Hg) 81 01/05/2012 [facility] Systolic (mm Hg) 123 01/05/2012 [facility] Respitory Rate 20 01/05/2012 [facility] Heart Rate 87 01/05/2012 [facility] Temperature Oral (F) 98.3 F 01/05/2012 [facility] Height 182.88 cm 01/01/2012 [facility] Weight 63.636 01/01/2012 [facility] Temperature Oral (F) 97.0 F 12/28/2011 [facility] Respitory Rate 16 12/28/2011 [facility] Diastolic (mm Hg) 75 12/28/2011 [facility] Heart Rate 52 12/28/2011 [facility] Systolic (mm Hg) 119 12/28/2011 [facility] Diastolic (mm Hg) 86 12/28/2011 [facility] Systolic (mm Hg) 134 12/28/2011 [facility] Temperature Oral (F) 98.5 F 12/28/2011 [facility] Heart Rate 98 12/28/2011 [facility] Respitory Rate 18 12/28/2011 [facility] Respitory Rate 18 12/27/2011 [facility] Systolic (mm Hg) 162 12/27/2011 [facility] Heart Rate 46 12/27/2011 [facility] Diastolic (mm Hg) 91 12/27/2011 [facility] Temperature Oral (F) 97.8 F 12/27/2011 [facility] Height 182.88 cm 12/23/2011 [facility] Weight 61.932 12/23/2011 [facility] Weight 56.818 12/22/2011 [facility] Height 152.40 cm 12/22/2011 [facility] Respitory Rate 18 12/09/2011 [facility] Heart Rate 104 12/09/2011 [facility] Diastolic (mm Hg) 87 12/09/2011 [facility] Systolic (mm Hg) 120 12/09/2011 [facility] Temperature Oral (F) 97.9 F 12/09/2011 [facility] Respitory Rate 18 12/09/2011 [facility] Heart Rate 67 12/09/2011 [facility] Systolic (mm Hg) 131 12/09/2011 [facility] Diastolic (mm Hg) 88 12/09/2011 [facility] Temperature Oral (F) 98.3 F 12/09/2011 [facility] Temperature Oral (F) 98.6 F 12/09/2011 [facility] Respitory Rate 18 12/09/2011 [facility] Heart Rate 97 12/09/2011 [facility] Diastolic (mm Hg) 58 12/09/2011 [facility] Systolic (mm Hg) 112 12/09/2011 [facility] Height 165.10 cm 12/04/2011 [facility] Weight 56.818 12/04/2011 [facility] Heart Rate 70 11/12/2011 [facility] Respitory Rate 20 11/12/2011 [facility] Systolic (mm Hg) 157 11/12/2011 [facility] Diastolic (mm Hg) 89 11/12/2011 [facility] Temperature Oral (F) 98.6 F 11/12/2011 [facility] Temperature Oral (F) 98.8 F 11/11/2011 [facility] Heart Rate 67 11/11/2011 [facility] Systolic (mm Hg) 168 11/11/2011 [facility] Respitory Rate 20 11/11/2011 [facility] Diastolic (mm Hg) 96 11/11/2011 [facility] Diastolic (mm Hg) 101 11/11/2011 [facility] Systolic (mm Hg) 170 11/11/2011 [facility] Respitory Rate 18 11/11/2011 [facility] Heart Rate 60 11/11/2011 [facility] Temperature Oral (F) 99.0 F 11/11/2011 [facility] Weight 63.200 11/08/2011 [facility] Weight 62.000 11/07/2011 [facility] Weight 64.205 11/07/2011 [facility] Height 182.88 cm 11/07/2011 [facility] Temperature Oral (F) 97.5 F 10/23/2011 [facility] Systolic (mm Hg) 138 10/23/2011 [facility] Respitory Rate 19 10/23/2011 [facility] Heart Rate 83 10/23/2011 [facility] Diastolic (mm Hg) 96 10/23/2011 [facility] Systolic (mm Hg) 116 10/23/2011 [facility] Diastolic (mm Hg) 77 10/23/2011 [facility] Temperature Oral (F) 97.7 F 10/23/2011 [facility] Heart Rate 79 10/23/2011 [facility] Respitory Rate 20 10/23/2011 [facility] Diastolic (mm Hg) 48 10/23/2011 [facility] Systolic (mm Hg) 103 10/23/2011 [facility] Temperature Oral (F) 98.0 F 10/23/2011 [facility] Heart Rate 68 10/23/2011 [facility] Respitory Rate 20 10/23/2011 [facility] Weight 74.600 10/16/2011 [facility] Weight 68.182 10/15/2011 [facility] Height 182.88 cm 10/15/2011 [facility] Diastolic (mm Hg) 70 09/13/2011 [facility] Heart Rate 95 09/13/2011 [facility] Temperature Oral (F) 97.7 F 09/13/2011 [facility] Systolic (mm Hg) 117 09/13/2011 [facility] Respitory Rate 18 09/13/2011 [facility] Heart Rate 59 09/13/2011 [facility] Diastolic (mm Hg) 67 09/13/2011 [facility] Respitory Rate 18 09/13/2011 [facility] Systolic (mm Hg) 117 09/13/2011 [facility] Temperature Oral (F) 97.9 F 09/13/2011 [facility] Respitory Rate 20 09/13/2011 [facility] Temperature Oral (F) 98.3 F 09/13/2011 [facility] Heart Rate 67 09/13/2011 [facility] Systolic (mm Hg) 122 09/13/2011 [facility] Diastolic (mm Hg) 75 09/13/2011 [facility] Weight 61.364 09/07/2011 [facility] Height 182.88 cm 09/07/2011 [facility] Systolic (mm Hg) 129.0 05/03/2011 [facility] Diastolic (mm Hg) 90.0 05/03/2011 [facility] Respitory Rate 16.0 05/03/2011 [facility] Heart Rate 70.0 05/03/2011 [facility] Height 182.88 cm 04/18/2011 [facility] Weight 76.364 04/18/2011 [facility] Temperature Oral (F) 98.3 F 04/18/2011 [facility] Peripheral Pulse Rate 16.0 04/18/2011 [facility] Diastolic (mm Hg) 88.0 04/18/2011 [facility] Systolic (mm Hg) 127.0 04/18/2011 [facility] Diastolic (mm Hg) 103.0 04/15/2011 [facility] Peripheral Pulse Rate 68.0 04/15/2011 [facility] Systolic (mm Hg) 143.0 04/15/2011 [facility] Height 182.88 cm 04/15/2011 [facility] Weight 59.091 04/15/2011 [facility] Encounters Location Location Details Encounter Type Encounter Number Reason For Visit Attending Provider ADM Date DC Date Status Source Outpatient [id number] EVALUATION IZA CLEMENTE JR 04/10/2011 04/10/2011 Active [facility] Emergency [id number] CHEST PAIN JUAN C SOMMEROBODA 04/11/2011 04/12/2011 Active [facility] Inpatient [id number] CELLULITIS ON LEF T FOOT YASMANY WEINBERG JR 09/06/2011 09/13/2011 Active [facility] Inpatient [id number] ACUTE RENAL FAILU RE YASMANY WEINBERG JR 10/15/2011 10/23/2011 Active [facility] Inpatient [id number] VOMITING NAUSEA U TI EUGENE LISETH 11/08/2011 11/11/2011 Active [facility] Inpatient [id number] ACUTE URINARY TRA CT INFECTION/RENAL STENT FREDDIE SONY 12/05/2011 12/09/2011 Active [facility] Inpatient [id number] PYELONEPHRITIS, INTRACTABLE VOMITING, FAILURE TO THRIVE GUIDO ARVIND 12/23/2011 12/28/2011 Active [facility] Inpatient [id number] PNEUMONIA GUIDO ARVIND 01/01/2012 01/05/2012 Active [facility] Inpatient [id number] ACUTE UTI ALLEN ARRIAGA 02/12/2012 02/28/2012 Active [facility] Inpatient [id number] URINARY TRACT INF ECTION IZA EASTMAN 05/16/2012 05/22/2012 Active [facility] Inpatient [id number] Katie Oakes 06/25/2014 06/29/2014 [facility] [id number] Flakita Almaguer Jr 05/1906/18/2015 [facility] Inpatient [id number] Angeles Samayoa 05/27/2015 06/05/2015 [facility] Inpatient [id number] Ace Clay 06/16/2015 06/21/2015 [facility] Inpatient [id number] Susan David 08/08/2015 08/25/2015 [facility] Inpatient [id number] Noe Henningomero 08/25/19 16 09/06/2015 [facility] Inpatient [id number] Vishnu Fox 09/07/2015 09/12/2015 [facility] Inpatient [id number] Litzy Blasjayesh 09/12/2015 09/12/2015 [facility] Inpatient [id number] Yaya Ballard 09/13/2015 10/16/2015 [facility] Inpatient [id number] Truman Gigi 10/16/2015 10/19/2015 [facility] [id number] Zechariah Cruz 10/19/2015 10/19/2015 [facility] Inpatient [id number] Cash Wiggins Trevon 10/19/19 16 10/20/2015 [facility] Pre Admit [id number] Lizzy Gutierrez 10/20/2015 10/20/2015 [facility] Inpatient [id number] Francisco Ashraf 01/01/2016 01/12/2016 [facility] [id number] Db Howard 01/13/2016 01/13/2016 [facility] Inpatient [id number] Victor M Cortez 06/01/2016 06/12/2016 [facility] Emergency [id number] Edy Cr 08/10/2016 08/10/2016 [facility] Emergency [id number] Fabrice Mchugh 08/11/2016 08/11/2016 [facility] Inpatient [id number] Vamshi Peterson 08/11/2016 08/23/2016 [facility] Emergency [id number] J Luis Loredo 08/23/2016 08/24/2016 [facility] Inpatient [id number] Khadishastat Ogunbiyi 08/30/2016 09/04/2016 [facility] Emergency [id number] Khadijat Ogunbiyi 09/10/2016 09/10/2016 [facility] Emergency [id number] Dinora Akujobi 09/22/2016 09/22/2016 [facility] Inpatient [id number] Zach Cecillemotharan 09/25/2016 10/04/2016 [facility] Inpatient [id number] Victor M Phoebeaokocleopatra 10/23/2016 10/26/2016 [facility] Emergency [id number] Maximo Dailey Jr 11/05/2016 11/05/2016 [facility] Inpatient [id number] Joelle Mclean 11/07/2016 11/28/2016 [facility] Inpatient [id number] Guevara Brenner 12/09/2016 12/25/2016 [facility] Inpatient [id number] Prince Smith 01/01/2017 01/04/2017 [facility] Inpatient [id number] Janina Hood 01/16/2017 01/21/2017 [facility] Outpatient [id number] DHARMESH HINTON 02/03/2017 [facility] Inpatient [id number] Brandyn Salinas 02/23/2017 03/06/2017 [facility] Inpatient [id number] Zechariah Cruz 05/22/2017 05/28/2017 [facility] Inpatient [id number] Michelet Santana 09/10/2017 10/22/2017 [facility] Inpatient [id number] Irasema Mckeon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 Cigarette Smoking Last 365 Days Yes; Reg Smoking Cessation Counseling Yes 09/26/2016 [facility] Social History TypeResponse Substance Abuse Use: Current. Type: Marijuana. Frequency: 1-2 times per week. IV drug use: No. Drug use interferes with work/home: No. Ready to change: No. Household substance abuse concerns: No. Cessation Education Provided: Yes. Sexual Sexually active: No. Exercise Exercise duration: 0. Employment/School Status: Unemployed. Alcohol Current, Type Beer. Smoking Status Current some day smoker; Tobacco use per day: 3; Number of years: 15; Previous treatment: None; Ready to change: No; Concerns about tobacco use in household: No; Exposure to Tobacco Smoke None; Cigarette Smoking Last 365 Days Yes; Reg Smoking Cessation Counseling No 08/25/2015 [facility] Family History No Data Provided for This Section Advance Directives No Data Provided for This Section Functional Status No Data Provided for This Section
--- OUTSIDE RECORDS SUMMARY | 2020-03-18 10:17 | XMS REPORT | Summary of Care ---
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 5 mL, Route: INTRADERM, Drug Form: INJ, Dosing Weight 75.545, kg, ONCALL, Start date: 12/12/16 19:00:00 CDT, Duration: 30 day, Stop date: 01/11/17 18:59:00 CDT Notes: (Same as: Xylocaine) Start Date: 12/12/16 Stop Date: 12/25/16 Status: Discontinued Lovenox 30 mg, 0.3 mL, Route: SUB-Q, Drug form: INJ, [id number], Dosing Weight 72.727, kg, Start date: 12/11/16 2:00:00 CDT, Duration: 30 day, Stop date: 01/09/17 14:00:00 CDT Notes: (Same as: Lovenox) Start Date: 12/11/16 Stop Date: 12/17/16 Status: Discontinued magnesium oxide 400 mg, 1 tab, Route: PO, Drug form: TAB, BID, Dosing Weight 75.545, kg, Start d ate: 12/18/16 9:00:00 CDT, Duration: 30 day, Stop date: 01/16/17 17:00:00 CDT Notes: (Same as: Mag-Ox 400)Magnesium oxide [id number] elemental magnesiumDose= ____mg magnesium oxide (___mg elemental magnesium) Start Date: 12/18/16 Stop Date: 12/25/16 Status: Discontinued magnesium sulfate 2 gm, 50 mL, Route: IVPB, Drug form: INJ, Q2H, Dosing Weight 75.545, kg, Total d ose = 4 gm, Priority: STAT, Start date: 12/10/16 8:10:00 CDT, Duration: 2 doses or times, Stop date: 12/10/16 10:00:00 CDT Notes: WASTE: F/P - Sink; E - Municipal Trash Bin Start Date: 12/10/16 Stop Date: 12/10/16 Status: Completed magnesium sulfate 2 gm, 50 mL, Route: IVPB, Drug form: INJ, ONCE, Dosing Weight 75.545, kg, Start date: 12/12/16 9:18:00 CDT, Stop date: 12/12/16 9:18:00 CDT Notes: WASTE: F/P - Sink; E - Municipal Trash Bin Start Date: 12/12/16 Stop Date: 12/12/16 Status: Completed magnesium sulfate 1 gm, 100 mL, Route: IVPB, Drug form: INJ, ONCE, Dosing Weight 75.545, kg, Total dose = 2 gm, Start date: 12/20/16 8:28:00 CDT, Duration: 1 doses or times, Stop date: 12/20/16 8:28:00 CDT Notes: WASTE: F/P - Sink; E - Municipal Trash Bin Start Date: 12/20/16 Stop Date: 12/20/16 Status: Completed magnesium sulfate 1 gm, 100 mL, Route: IVPB, Drug form: INJ, ONCE, Dosing Weight 75.545, kg, Start date: 12/24/16 7:44:00 CDT, Stop date: 12/24/16 7:44:00 CDT Notes: WASTE: F/P - Sink; E - Municipal Trash Bin Start Date: 12/24/16 Stop Date: 12/24/16 Status: Completed magnesium sulfate 2 gm, 50 mL, Route: IVPB, Drug form: INJ, ONCE, Dosing Weight 75.545, kg, Start date: 12/14/16 9:18:00 CDT, Stop date: 12/14/16 9:18:00 CDT Notes: WASTE: F/P - Sink; E - Municipal Trash Bin Start Date: 12/14/16 Stop Date: 12/14/16 Status: Completed magnesium sulfate 2 gm, 50 mL, Route: IVPB, Drug form: INJ, Q2H, Dosing Weight 75.545, kg, Total D ose = 4 gm, Start date: 12/16/16 16:00:00 CDT, Duration: 2 doses or times, Stop date: 12/16/16 18:00:00 CDT Notes: WASTE: F/P - Sink; E - Municipal Trash Bin Start Date: 12/16/16 Stop Date: 12/16/16 Status: Completed magnesium sulfate 2 gm, 50 mL, Route: IVPB, Drug form: INJ, Q2H, Dosing Weight 75.545, kg, Total D ose = 4 gm, Start date: 12/13/16 10:00:00 CDT, Duration: 2 doses or times, Stop date: 12/13/16 12:00:00 CDT Notes: WASTE: F/P - Sink; E - Municipal Trash Bin Start Date: 12/13/16 Stop Date: 12/13/16 Status: Completed magnesium sulfate 2gm / NS 50ml (premixed) 2 gm, 50 mL, Route: IVPB, Drug form: INJ, ONCE, Dosing Weight 75.545, kg, Start date: 12/20/16 19:24:00 CDT, Duration: 2 hr, Stop date: 12/20/16 19:24:00 CDT Notes: WASTE: F/P - Sink; E - Municipal Trash Bin Start Date: 12/20/16 Stop Date: 12/20/16 Status: Discontinued Maxipime + sodium chloride 0.9% INJ 100 mL 1 gm, Route: IVPB, [id number], Start date: 12/21/16 17:00:00 CDT, Duration: 30 day, Stop date: 01/20/17 5:00:00 CDT, ABX Indication: Urinary Tract Infection Start Date: 12/21/16 Stop Date: 12/23/16 Status: Discontinued meropenem + sodium chloride 0.9% INJ 100 mL 500 mg, Route: IVPB, [id number], Dosing Weight 72.727, kg, CrCL= 26 -49 ml/min, Exte nded infusion, infuse over 3 hours, Start date: 12/09/16 1:00:00 CDT, Stop date : 01/07/17 10:00:00 CDT Notes: Same as Merrem MEDICATION WASTE Product Size: 500 mgProduct Wast ed: _0__ mg Start Date: 12/09/16 Stop Date: 12/16/16 Status: Discontinued meropenem + sodium chloride 0.9% INJ 100 mL 1,000 mg, Route: IVPB, ONCE, Dosing Weight 72.727, kg, Priority: STAT, Start river e: 12/08/16 23:53:00 CDT, Stop date: 12/08/16 23:53:00 CDT Notes: (Same as: Merrem) . MEDICATION WASTE Product Size: 1000 mgProduc t Wasted: ___ mg Start Date: 12/08/16 Stop Date: 12/09/16 Status: Completed meropenem + sodium chloride 0.9% INJ 100 mL 500 mg, Route: IVPB, [id number], Dosing Weight 75.545, kg, CrCL > = 50ml/min, Extended infusion, infuse over 3 hours, Start date: 12/18/16 0:00:00 CDT, Duration: 30 day, Stop date: 01/16/17 18:00:00 CDT Notes: Same as Merrem MEDICATION WASTE Product Size: 500 mgProduct Wast ed: ___ mg Start Date: 12/18/16 Stop Date: 12/21/16 Status: Discontinued metoprolol tartrate 25 mg oral tablet 25 mg = 1 tab, PO, BID, # 60 tab, 0 Refill(s) Start Date: 12/09/16 Stop Date: 12/25/16 Status: Discontinued midazolam (ANES) Route: IV, Drug form: SOLN, ONCE, Stop date: 12/10/16 12:25:00 CDT Start Date: 12/10/16 Stop Date: 12/10/16 Status: Completed morphine Sulfate 4 mg, 1 mL, Route: IVP, Drug form: SOLN, Q4H, Dosing Weight 72.727, kg, PRN Pain Score 7-10, Start date: 12/09/16 0:56:00 CDT, Duration: 30 day, Stop date: 02/17 0:55:00 CDT Notes: (Same as:MORPhine Sulfate) Start Date: 12/09/16 Stop Date: 12/10/16 Status: Discontinued morphine Sulfate 2 mg, 1 mL, Route: IVP, Drug form: INJ, ONCE, Dosing Weight 75.545, kg, PRN Head ache 6-10, Start date: 12/19/16 21:26:00 CDT Notes: (Same as:MORPhine Sulfate) Start Date: 12/19/16 Stop Date: 12/20/16 Status: Discontinued neostigmine (ANES) Route: IV, Drug form: INJ, ONCE, Stop date: 12/10/16 13:03:00 CDT Start Date: 12/10/16 Stop Date: 12/10/16 Status: Completed Olney 10/325 oral tablet 1 tab, Route: PO, Drug Form: TAB, Dosing Weight 75.545, kg, Q4H, PRN Pain Score 4-6, Start date: 12/10/16 16:00:00 CDT, Duration: 30 day, Stop date: 01/09/17 15 :59:00 CDT Notes: Do not exceed 4gm/day of acetaminophen. (Same as: Ol[place] 325/10) Start Date: 12/10/16 Stop Date: 12/11/16 Status: Discontinued Ol[place] 10/325 oral tablet 1 tab, PO, Q6H, PRN for pain, # 24 tab, 0 Refill(s) Start Date: 12/09/16 Stop Date: 12/15/16 Status: Ordered Ol[place] 10/325 oral tablet 1 tab, Route: PO, Drug Form: TAB, Dosing Weight 75.545, kg, Q6H, PRN Other -See Comment, Start date: 12/10/16 12:39:00 CDT, Duration: 30 day, Stop date: 7 12:38:00 CDT, prn pain Notes: Do not exceed 4gm/day of acetaminophen. (Same as: Ol[place] 325/10) Start Date: 12/10/16 Stop Date: 12/10/16 Status: Discontinued Ol[place] 5/325 oral tablet 1 tab, Route: PO, Drug Form: TAB, Dosing Weight 75.545, kg, ONCE, Start date: 13:18:00 CDT, Stop date: 12/25/16 13:18:00 CDT Notes: (Same as: Ol[place] 325/5) Do not exceed 4gm/day of acetaminophen. Start Date: 12/25/16 Stop Date: 12/25/16 Status: Completed NovoLIN R 10 unit, 0.1 mL, Route: IV, Drug form: INJ, ONCE, Dosing Weight 75.545, kg, Star t date: 12/17/16 15:40:00 CDT, Stop date: 12/17/16 15:40:00 CDT Notes: (Same as: Humulin R and NovoLIN R)WASTE: F/P - Black; E - Municipal Trash Bin (Do not shake) Start Date: 12/17/16 Stop Date: 12/17/16 Status: Completed NS (Bolus) IV 500 mL, 500 ml/hr, Infuse Over: 1 hr, Route: IV, ONCE, Priority: STAT, Dosing We ight 75.545 kg, Start date: 12/17/16 23:17:00 CDT, Duration: 1 doses or times, S top date: 12/17/16 23:17:00 CDT Start Date: 12/17/16 Stop Date: 12/17/16 Status: Completed ondansetron 4 mg, 2 mL, Route: IVP, Drug form: INJ, Q6H, Dosing Weight 72.727, kg, PRN Nause a & Vomiting, Start date: 12/09/16 0:56:00 CDT, Duration: 30 day, Stop date: 01/08/17 0:55:00 CDT Notes: (Same as: Klaus) MEDICATION WASTE Product Size: 4 mgProduct Was reinaldo: ___ mg Start Date: 12/09/16 Stop Date: 12/25/16 Status: Discontinued ondansetron (ANES) Route: IV, Drug form: INJ, ONCE, Stop date: 12/10/16 12:51:00 CDT Start Date: 12/10/16 Stop Date: 12/10/16 Status: Completed pantoprazole 40 mg, 1 tab, Route: PO, Drug form: ECTAB, Before Dinner, Dosing Weight 75.545, kg, Start date: 12/10/16 16:30:00 CDT, Duration: 30 day, Stop date: 01/08/17 16: 30:00 CDT Notes: Tablet should not be chewed or crushed.(Same as: Protonix) Start Date: 12/10/16 Stop Date: 12/25/16 Status: Discontinued Pepcid 20 mg, Route: IVP, ONCE, Dosing Weight 75.545, kg, Start date: 12/10/16 10:58:00 CDT, Stop date: 12/10/16 10:58:00 CDT Start Date: 12/10/16 Stop Date: 12/10/16 Status: Completed Percocet 10/325 oral tablet 1 tab, Route: PO, Drug Form: TAB, Dosing Weight 75.545, kg, Q4H, PRN Pain Score 4-6, Start date: 12/11/16 9:44:00 CDT, Duration: 30 day, Stop date: 01/10/17 9:4 3:00 CDT Start Date: 12/11/16 Stop Date: 12/11/16 Status: Deleted Percocet 10/325 oral tablet See Instructions, 1 tab PO TID PRN PAIN, # 15 tab, 0 Refill(s), other Start Date: 12/25/16 Stop Date: 12/25/16 Status: Completed polyethylene glycol 3350 17 gm, 1 pkt, Route: PO, Drug form: PWDR, Daily, Dosing Weight 75.545, kg, Start date: 12/11/16 9:00:00 CDT, Duration: 30 day, Stop date: 01/09/17 9:00:00 CDT Notes: Dissolve in 8 oz of water or juice.(Same as: Miralax) Start Date: 12/11/16 Stop Date: 12/25/16 Status: Discontinued pregabalin 50 mg, 1 cap, Route: PO, Drug form: CAP, Q8H, Dosing Weight 75.545, kg, Start da te: 12/22/16 0:00:00 CDT, Duration: 30 day, Stop date: 01/21/17 1:00:00 CDT Notes: Same as Lyrica Start Date: 12/22/16 Stop Date: 12/25/16 Status: Discontinued pregabalin 150 mg, 2 cap, Route: PO, Drug form: CAP, BID, Dosing Weight 75.545, kg, Start d ate: 12/10/16 17:00:00 CDT, Duration: 30 day, Stop date: 01/09/17 9:00:00 CDT Notes: (Same as: Lyrica) Start Date: 12/10/16 Stop Date: 12/22/16 Status: Discontinued propofol (ANES) Route: IV, Drug form: INJ, ONCE, Stop date: 12/10/16 12:31:00 CDT Start Date: 12/10/16 Stop Date: 12/10/16 Status: Completed Restore Hydrogel topical gel 1 appl, Route: TOP, Dosing Weight 75.545, kg, Daily, Start date: 12/13/16 9:00:0 0 CDT, Duration: 30 day, Stop date: 01/11/17 9:00:00 CDT Start Date: 12/13/16 Stop Date: 12/12/16 Status: Deleted Rocephin + sodium chloride 0.9% INJ 100 mL 1 gm, Route: IVPB, ONCE, Dosing Weight 72.727, kg, Priority: STAT, Start date: 0 12/08/16 21:25:00 CDT, Stop date: 12/08/16 21:25:00 CDT Notes: (Same As: Rocephin).Use with 100 mL NS and infuse over 30 min MEDICA TION WASTE Product Size: 1000 mgProduct Wasted: ___ mg Start Date: 12/08/16 Stop Date: 12/08/16 Status: Completed rocuronium (ANES) Route: IV, Drug form: INJ, ONCE, Stop date: 12/10/16 12:31:00 CDT Start Date: 12/10/16 Stop Date: 12/10/16 Status: Completed Roxicodone 10 mg, 2 tab, Route: PO, Drug form: TAB, Q4H, PRN Pain Score 4-6, Start date: 9:56:00 CDT, Duration: 30 day, Stop date: 01/10/17 9:55:00 CDT Notes: (Same as: Roxicodone) Start Date: 12/11/16 Stop Date: 12/17/16 Status: Discontinued Saline Flush 0.9% 10 ml, Route: IVP, Drug Form: INJ, Dosing Weight 72.727, kg, PRN, PRN Line Flush , Start date: 12/09/16 0:56:00 CDT, Duration: 30 day, Stop date: 01/08/17 0:55:0 0 CDT Notes: (Same as: BD Posiflush) Start Date: 12/09/16 Stop Date: 12/25/16 Status: Discontinued Saline Flush 0.9% 10 mL, Route: IVP, Drug Form: INJ, Dosing Weight 72.727, kg, PRN, PRN Line Flush , Start date: 12/08/16 21:23:00 CDT, Duration: 30 day, Stop date: 01/07/17 21:22 :00 CDT Notes: (Same as: BD Posiflush) Start Date: 12/08/16 Stop Date: 12/09/16 Status: Discontinued Saline Flush 0.9% 10 mL, Route: IVP, Drug Form: INJ, Dosing Weight 75.545, kg, Q8H, Start date: 0:00:00 CDT, Duration: 30 day, Stop date: 01/11/17 16:00:00 CDT Notes: (Same as: BD Posiflush) Start Date: 12/13/16 Stop Date: 12/25/16 Status: Discontinued Saline Flush 0.9% 10 mL, Route: IVP, Drug Form: INJ, Dosing Weight 75.545, kg, PRN, PRN Line Flush , Start date: 12/12/16 18:40:00 CDT, Duration: 30 day, Stop date: 01/11/17 18:39 :00 CDT Notes: (Same as: BD Posiflush) Start Date: 12/12/16 Stop Date: 12/25/16 Status: Discontinued Santyl 1 appl, Route: TOP, Daily, Drug form: OINT, Start date: 12/11/16 9:00:00 CDT, Du ration: 30 day, Stop date: 01/09/17 9:00:00 CDT Notes: (Same As: Santyl) Start Date: 12/11/16 Stop Date: 12/18/16 Status: Discontinued sodium bicarbonate 8.4% 50 mEq, 50 ml, Route: IVP, Drug Form: INJ, Dosing Weight 75.545, kg, ONCE, Start date: 12/17/16 8:00:00 CDT, Stop date: 12/17/16 8:00:00 CDT Notes: (sodium bicarb 8.4% (1 mEq/ml) 50 ml syringe) Start Date: 12/17/16 Stop Date: 12/17/16 Status: Completed Sodium Chloride 0.9% (Bolus) IV 2,000 mL, 2000 ml/hr, Infuse Over: 1 hr, Route: IV, 2,000, Drug form: INJ, ONCE, Priority: STAT, Dosing Weight 72.727 kg, Start date: 12/08/16 21:25:00 CDT, Dur ation: 1 doses or times, Stop date: 12/08/16 21:25:00 CDT Start Date: 12/08/16 Stop Date: 12/08/16 Status: Completed sodium chloride 0.9% 1000 ml INJ (ANES) Route: IV, Total Volume: 1,000, Start date: 12/10/16 11:00:00 CDT, Stop date: 12:00:00 CDT Start Date: 12/10/16 Stop Date: 12/10/16 Status: Completed sodium chloride 0.9% 1000 ml INJ 1,000 mL 1,000 mL, Rate: 100 ml/hr, Infuse over: 10 hr, Route: IV, Dosing Weight 75.545 k g, Total Volume: 1,000, Start date: 12/20/16 14:25:00 CDT, Stop date: 01/19/17 1 4:24:00 CDT Start Date: 12/20/16 Stop Date: 12/25/16 Status: Discontinued sodium chloride 0.9% 1000 ml INJ 1,000 mL 1,000 mL, Rate: 150 ml/hr, Infuse over: 6.7 hr, Route: IV, Dosing Weight 72.727 kg, Total Volume: 1,000, Start date: 12/09/16 0:56:00 CDT, Duration: 30 day, Sto p date: 01/08/17 0:55:00 CDT Start Date: 12/09/16 Stop Date: 12/20/16 Status: Discontinued sodium chloride 0.9% 1000 ml INJ 1,000 mL 1,000 mL, Rate: 1,000 ml/hr, Infuse over: 1 hr, Route: IV, Dosing Weight 75.545 kg, Total Volume: 1,000, Start date: 12/18/16 17:13:00 CDT, Duration: 1 hr, Stop date: 12/18/16 18:12:00 CDT Start Date: 12/18/16 Stop Date: 12/18/16 Status: Completed sodium chloride 0.9% 50 ml INJ (ANES) + meropenem (ANES) (ANES) Route: IV, Drug form: INJ, Start date: 12/10/16 10:45:00 CDT, Stop date: 7 11:45:00 CDT Start Date: 12/10/16 Stop Date: 12/10/16 Status: Completed Sodium Chloride 0.9% IV 1000 mL 1,000 mL, Rate: 40 ml/hr, Infuse over: 25 hr, Route: IV, Dosing Weight 75.545 kg , Total Volume: 1,000, Start date: 12/10/16 11:43:00 CDT, Duration: 30 day, Stop date: 01/09/17 11:42:00 CDT Start Date: 12/10/16 Stop Date: 12/10/16 Status: Discontinued sodium phosphate + D5W 240 mL 30 mmol, 10 mL, Route: IVPB, ONCE, Dosing Weight 75.545, kg, Start date: 7 9:18:00 CDT, Stop date: 12/12/16 9:18:00 CDT Start Date: 12/12/16 Stop Date: 12/12/16 Status: Completed sodium phosphate + D5W 250 mL 30 mmol, 10 mL, Route: IVPB, ONCE, Dosing Weight 75.545, kg, Start date: 7 9:19:00 CDT, Stop date: 12/14/16 9:19:00 CDT Start Date: 12/14/16 Stop Date: 12/14/16 Status: Completed sodium polystyrene sulfonate 30 gm, 120 mL, Route: PO, Drug form: SUSP, ONCE, Dosing Weight 75.545, kg, Start date: 12/17/16 8:00:00 CDT, Duration: 1 doses or times, Stop date: 12/17/16 8:0 0:00 CDT Notes: (sodium polystyrene sulfonate 15 gm/60 ml SOLITARIO) Shake well before use. (Same as: Giselle, SPS) Start Date: 12/17/16 Stop Date: 12/17/16 Status: Completed sodium polystyrene sulfonate 30 gm, 120 mL, Route: PO, Drug form: SUSP, ONCE, Dosing Weight 75.545, kg, Start date: 12/16/16 15:27:00 CDT, Duration: 1 doses or times, Stop date: 12/16/16 15 :27:00 CDT Notes: (sodium polystyrene sulfonate 15 gm/60 ml SOLITARIO) Shake well before use. (Same as: Kayexalate, SPS) Start Date: 12/16/16 Stop Date: 12/16/16 Status: Completed tizanidine 4 mg, 1 tab, Route: PO, Drug form: TAB, TID, Dosing Weight 75.545, kg, Start river e: 12/10/16 13:00:00 CDT, Duration: 30 day, Stop date: 01/09/17 9:00:00 CDT Notes: (Same As: Zanaflex) Start Date: 12/10/16 Stop Date: 12/18/16 Status: Discontinued tobramycin + sodium chloride 0.9% INJ 100 mL 530 mg, 13.25 mL, Route: IV, Drug form: INJ, [id number], Dosing Weight 75.545, kg, Start date: 12/13/16 13:00:00 CDT, Duration: 30 day, Stop date: 01/10/17 13:00:0 0 CDT Notes: TIME CRITICAL MEDICATION(Same As: Nebcin) Start Date: 12/13/16 Stop Date: 12/16/16 Status: Discontinued tobramycin + sodium chloride 0.9% INJ 100 mL 530 mg, 13.25 mL, Route: IVPB, Drug form: INJ, [id number], Dosing Weight 75.545, kg , Start date: 12/11/16 13:00:00 CDT, Duration: 30 day, Stop date: 01/09/17 13:00 :00 CDT Notes: TIME CRITICAL MEDICATION(Same As: Nebcin) Start Date: 12/11/16 Stop Date: 12/12/16 Status: Discontinued Tobramycin Pharmacy Dosing 1 ea, Route: MISC, Dosing Weight 75.545, kg, ONCALL, Start date: 12/11/16 12:00: 00 CDT, Duration: 1 doses or times, Pharmacy to dose Start Date: 12/11/16 Stop Date: 12/11/16 Status: Discontinued tolterodine 4 mg oral capsule, extended release 4 mg = 1 cap, PO, Daily, # 30 cap, 0 Refill(s) Start Date: 12/25/16 Stop Date: 01/24/17 Status: Ordered Toprol-XL 25 mg oral tablet, extended release 25 mg, 1 tab, Route: PO, Drug form: ERTAB, BID, Start date: 12/10/16 17:00:00 CD T, Duration: 30 day, Stop date: 01/09/17 9:00:00 CDT Notes: (Same as: Toprol XL) Do Not Crush Start Date: 12/10/16 Stop Date: 12/11/16 Status: Discontinued Tylenol 325 mg, 1 tab, Route: PO, Drug form: TAB, Q4H, PRN Pain Score 4-6, Start date: 0 12/11/16 9:56:00 CDT, Duration: 30 day, Stop date: 01/10/17 9:55:00 CDT Notes: Do not exceed 4 gm/day. (Same as: Tylenol) Start Date: 12/11/16 Stop Date: 12/25/16 Status: Discontinued Valium 5 mg, 1 mL, Route: IVP, Drug form: INJ, ONCE, Dosing Weight 75.545, kg, Priority : STAT, Start date: 12/17/16 10:05:00 CDT, Stop date: 12/17/16 10:05:00 CDT Notes: (Same as: Valium)WASTE: F/P - Black; E - White/Blue Start Date: 12/17/16 Stop Date: 12/17/16 Status: Completed vancomycin + sodium chloride 0.9% INJ 250 mL 1,000 mg, Route: IVPB, [id number], Dosing Weight 75.545, kg, Start date: 12/18/16 0 :00:00 CDT, Duration: 30 day, Stop date: 01/16/17 12:00:00 CDT Notes: TIME CRITICAL MEDICATION(Same As: Vancocin)Infusion rate< 1000 mg: infuse over 1 [id number] - 1500 mg: infuse over 1.5 [id number] - 2000 mg: infuse over 2 hours> 2001 mg: infuse over 2.5 hours MEDICATION WASTE Product Size: 1000 mgProduct Wasted: ___ mg Start Date: 12/18/16 Stop Date: 12/20/16 Status: Discontinued vancomycin + sodium chloride 0.9% INJ 250 mL 1 gm, Route: IV, ONCE, Dosing Weight 75.545, kg, Start date: 12/09/16 15:48:00 C DT, Stop date: 12/09/16 15:48:00 CDT Notes: TIME CRITICAL MEDICATION(Same As: Vancocin)Infusion rate< 1000 mg: infuse over 1 [id number] - 1500 mg: infuse over 1.5 [id number] - 2000 mg: infuse over 2 hours> 2001 mg: infuse over 2.5 hours MEDICATION WASTE Product Size: 1000 mgProduct Wasted: ___ mg Start Date: 12/09/16 Stop Date: 12/09/16 Status: Completed Xanax 2 mg oral tablet 2 mg, 2 tab, Route: PO, Drug form: TAB, BID, Dosing Weight 75.545, kg, Start river e: 12/10/16 17:00:00 CDT, Duration: 30 day, Stop date: 01/09/17 9:00:00 CDT Notes: With food or milk(Same as: Xanax) Start Date: 12/10/16 Stop Date: 12/25/16 Status: Discontinued Zofran 4 mg, Route: IVP, Drug form: INJ, ONCE, Dosing Weight 72.727, kg, Priority: STAT , Start date: 12/08/16 22:09:00 CDT, Stop date: 12/08/16 22:09:00 CDT Start Date: 12/08/16 Stop Date: 12/08/16 Status: Completed Zofran 4 mg, Route: IVP, ONCE, Dosing Weight 75.545, kg, Start date: 12/10/16 10:58:00 CDT, Stop date: 12/10/16 10:58:00 CDT Start Date: 12/10/16 Stop Date: 12/10/16 Status: Completed Results BLOOD BANK RESULTS 1 2 3 Most recent to oldest [Reference Range]: A POS *Unknown* (12/17/16 1:03 PM) ABO/Rh Negative (12/17/16 1:03 PM) Antibody Scrn ELECTROLYTES 1 2 3 Most recent to oldest [Reference Range]: 140 mEq/L (12/25/16 5:02 AM) 139 mEq/L (12/24/16 5:06 AM) 137 mEq/L (12/23/16 7:37 AM) Sodium Lvl [135-145 mEq/L] 5.2 mEq/L *HI* (12/25/16 5:02 AM) 5.2 mEq/L *HI* (12/24/16 5:06 AM) 5.3 mEq/L *HI* (12/23/16 7:37 AM) Potassium Lvl [3.5-5.1 mEq/L] 109 mEq/L (12/25/16 5:02 AM) 108 mEq/L (12/24/16 5:06 AM) 108 mEq/L (12/23/16 7:37 AM) Chloride Lvl [95-109 mEq/L] 19 mEq/L *LOW* (12/25/16 5:02 AM) 18 mEq/L *LOW* (12/24/16 5:06 AM) 19 mEq/L *LOW* (12/23/16 7:37 AM) CO2 [24-32 mEq/L] 17.2 mEq/L (12/25/16 5:02 AM) 18.2 mEq/L (12/24/16 5:06 AM) 15.3 mEq/L (12/23/16 7:37 AM) AGAP [10.0-20.0 mEq/L] CHEM PANEL 1 2 3 Most recent to oldest [Reference Range]: 3.00 mg/dL *HI* (12/25/16 5:02 AM) 3.10 mg/dL *HI* (12/24/16 5:06 AM) 3.10 mg/dL *HI* (12/23/16 7:37 AM) Creatinine Lvl [0.50-1.40 mg/dL] 26 mL/min/1.73m2 1 *NA* (12/25/16 5:02 AM) 25 mL/min/1.73m2 2 *NA* (12/24/16 5:06 AM) 25 mL/min/1.73m2 3 *NA* (12/23/16 7:37 AM) eGFR 61 mg/dL *HI* (12/25/16 5:02 AM) 64 mg/dL *HI* (12/24/16 5:06 AM) 65 mg/dL *HI* (12/23/16 7:37 AM) BUN [7-22 mg/dL] 14 (12/09/16 4:02 AM) 13 (12/08/16 10:03 PM) B/C Ratio [6-25] 99 mg/dL (12/25/16 5:02 AM) 96 mg/dL (12/24/16 5:06 AM) 92 mg/dL (12/23/16 7:37 AM) Glucose Lvl [70-99 mg/dL] 7.8 g/dL (12/09/16 4:02 AM) 9.4 g/dL *HI* (12/08/16 10:03 PM) Total Protein [6.4-8.4 g/dL] 3.0 g/dL *LOW* (12/09/16 4:02 AM) 3.4 g/dL *LOW* (12/08/16 10:03 PM) Albumin Lvl [3.5-5.0 g/dL] 4.8 g/dL *HI* (12/09/16 4:02 AM) 6.0 g/dL *HI* (12/08/16 10:03 PM) Globulin [2.7-4.2 g/dL] 0.6 *LOW* (12/09/16 4:02 AM) 0.6 *LOW* (12/08/16 10:03 PM) A/G Ratio [0.7-1.6] 9.1 mg/dL (12/25/16 5:02 AM) 9.0 mg/dL (12/24/16 5:06 AM) 9.3 mg/dL (12/23/16 7:37 AM) Calcium Lvl [8.5-10.5 mg/dL] 5.1 mg/dL *HI* (12/18/16 4:52 AM) 4.6 mg/dL *HI* (12/17/16 4:57 AM) 3.3 mg/dL (12/16/16 1:42 PM) Phosphorus [2.5-4.5 mg/dL] 1.6 mg/dL *LOW* (12/24/16 5:06 AM) 1.4 mg/dL *LOW* (12/20/16 6:17 AM) 1.3 mg/dL *LOW* (12/18/16 4:52 AM) Magnesium Lvl [1.8-2.4 mg/dL] 32 unit/L (12/09/16 4:02 AM) 41 unit/L (12/08/16 10:03 PM) ALT [0-65 unit/L] 15 unit/L (12/09/16 4:02 AM) 14 unit/L (12/08/16 10:03 PM) AST [0-37 unit/L] 136 unit/L (12/09/16 4:02 AM) 152 unit/L *HI* (12/08/16 10:03 PM) Alk Phos [39-136 unit/L] 0.4 mg/dL (12/09/16 4:02 AM) 0.4 mg/dL (12/08/16 10:03 PM) Bili Total [0.2-1.3 mg/dL] 0.7 mMol/L (12/18/16 4:52 AM) 1.2 mMol/L (12/16/16 1:42 PM) 1.1 mMol/L (12/08/16 10:03 PM) Lactic Acid Lvl [0.5-2.2 mMol/L] 301 mOsm/kg *HI* (12/19/16 3:15 PM) Osmolality [280-300 mOsm/kg] 0.24 ng/mL *HI* (12/22/16 5:37 AM) 2.12 ng/mL 4 *CRIT* (12/18/16 12:16 AM) 0.18 ng/mL *HI* (12/08/16 10:03 PM) Procalcitonin Lvl [0.00-0.10 ng/mL] 1Result Comment: The eGFR is calculated using the [...] from the [employer] Program ( [employer]) which additionally recommends that when the eGFR is used in patients with extremes of body mass index for purposes of drug dosing, the eGFR should be mul tiplied by the estimated BMI. 2Result Comment: The eGFR is calculated using the [...] from the [employer] ( [employer]) which additionally recommends that when the eGFR is used in patients with extremes of body mass index for purposes of drug dosing, the eGFR should be mul tiplied by the estimated BMI. 3Result Comment: The eGFR is calculated using the [...] from the [employer] Program ( [employer]) which additionally recommends that when the eGFR is used in patients with extremes of body mass index for purposes of drug dosing, the eGFR should be mul tiplied by the estimated BMI. 4Result Comment: Critical Result(s) called to leeanna yadav at 12/18/2016 01:27 by [email or web address]. Read back OK. CARDIAC ENZYMES 1 2 3 Most recent to oldest [Reference Range]: 94 unit/L (12/08/16 10:03 PM) Total CK [12-191 unit/L] 0.5 ng/mL (12/17/16 11:08 AM) 0.6 ng/mL (12/08/16 10:03 PM) CK MB [0.5-3.6 ng/mL] 0.6 (12/08/16 10:03 PM) CK MB Index [0.0-2.5] <0.02 ng/mL (12/17/16 11:08 AM) <0.02 ng/mL (12/08/16 10:03 PM) Troponin-I [0.00-0.40 ng/mL] TOXICOLOGY 1 2 3 Most recent to oldest [Reference Range]: 1200 *NA* (12/20/16 12:43 PM) Vanco Tr TND 10.6 ug/ml *NA* (12/14/16 12:14 AM) 10.6 ug/ml *NA* (12/11/16 10:44 PM) Tobra Lvl 10.2 ug/ml *NA* (12/23/16 7:37 AM) 23.1 ug/ml *NA* (12/21/16 9:13 AM) Vanco Lvl 31.6 ug/ml *NA* (12/20/16 12:43 PM) Vanco Tr URINE CHEM 1 2 3 Most recent to oldest [Reference Range]: 34.00 mg/dL *NA* (12/22/16 6:25 PM) <13.00 mg/dL *NA* (12/20/16 5:55 AM) U Creatinine 51 mEq/L *NA* (12/22/16 6:25 PM) 99 mEq/L *NA* (12/20/16 5:55 AM) U Sodium 7.2 mEq/L *NA* (12/20/16 5:55 AM) U Potassium 257 mOsm/kg *LOW* (12/20/16 5:55 AM) U Osmolality [300-800 mOsm/kg] 0-2 *ABN* (12/22/16 6:25 PM) U Eos [None Seen] URINE AND STOOL 1 2 3 Most recent to oldest [Reference Range]: Slight *ABN* (12/18/16 12:16 AM) Marked *ABN* (12/08/16 11:06 PM) UA Turbidity [Clear] Ltyellow *NA* (12/18/16 12:16 AM) UA Color Yellow (12/08/16 11:06 PM) UA Color [Yellow] 8.0 (12/18/16 12:16 AM) 6.0 (12/08/16 11:06 PM) UA pH [5.0-8.0] 1.010 (12/18/16 12:16 AM) 1.011 (12/08/16 11:06 PM) UA Spec Grav [<=1.030] Negative mg/dL *NA* (12/18/16 12:16 AM) Negative mg/dL *NA* (12/08/16 11:06 PM) UA Glucose [Negative mg/dL] Small *ABN* (12/18/16 12:16 AM) Moderate *ABN* (12/08/16 11:06 PM) UA Blood [Negative] Negative mg/dL *NA* (12/18/16 12:16 AM) Negative mg/dL *NA* (12/08/16 11:06 PM) UA Ketones [Negative mg/dL] 30 mg/dL *ABN* (12/18/16 12:16 AM) 100 mg/dL *ABN* (12/08/16 11:06 PM) UA Protein [Negative mg/dL] <=1.0 mg/dL *NA* (12/18/16 12:16 AM) <=1.0 mg/dL *NA* (12/08/16 11:06 PM) UA Urobilinogen [0.1-1.0 mg/dL] Negative *NA* (12/18/16 12:16 AM) Negative *NA* (12/08/16 11:06 PM) UA Bili [Negative] Large *ABN* (12/18/16 12:16 AM) Large *ABN* (12/08/16 11:06 PM) UA Leuk Est [Negative] Negative (12/18/16 12:16 AM) Positive *ABN* (12/08/16 11:06 PM) UA Nitrite [Negative] 92 /HPF *HI* (12/18/16 12:16 AM) 94 /HPF *HI* (12/08/16 11:06 PM) UA WBC [0-5 /HPF] 6 /HPF *HI* (12/18/16 12:16 AM) 20 /HPF *HI* (12/08/16 11:06 PM) UA RBC [0-2 /HPF] Few /HPF *NA* (12/08/16 11:06 PM) UA Bacteria [None Seen /HPF] Occasional /LPF *NA* (12/18/16 12:16 AM) UA Sq Epi [Few /LPF] None Seen *NA* (12/08/16 11:06 PM) UA Sq Epi Moderate /HPF *ABN* (12/08/16 11:06 PM) UA Amorph Michelle [None Seen /HPF] IMMUNOLOGY 1 2 3 Most recent to oldest [Reference Range]: 11.2 mg/dL *LOW* (12/11/16 5:19 AM) Prealbumin [18.0-45.0 mg/dL] HEMATOLOGY 1 2 3 Most recent to oldest [Reference Range]: 8.2 K/CMM (12/25/16 5:02 AM) 9.1 K/CMM (12/24/16 5:06 AM) 9.9 K/CMM (12/23/16 7:37 AM) WBC [3.7-10.4 K/CMM] 2.93 M/CMM *LOW* (12/25/16 5:02 AM) 2.84 M/CMM *LOW* (12/24/16 5:06 AM) 2.89 M/CMM *LOW* (12/23/16 7:37 AM) RBC [4.70-6.10 M/CMM] 8.3 g/dL *LOW* (12/25/16 5:02 AM) 8.0 g/dL *LOW* (12/24/16 5:06 AM) 8.1 g/dL *LOW* (12/23/16 7:37 AM) Hgb [14.0-18.0 g/dL] 24.9 % *LOW* (12/25/16 5:02 AM) 23.9 % *LOW* (12/24/16 5:06 AM) 24.1 % *LOW* (12/23/16 7:37 AM) Hct [42.0-54.0 %] 85.0 fL (12/25/16 5:02 AM) 84.2 fL (12/24/16 5:06 AM) 83.3 fL (12/23/16 7:37 AM) MCV [80.0-94.0 fL] 28.2 pg (12/25/16 5:02 AM) 28.1 pg (12/24/16 5:06 AM) 28.1 pg (12/23/16 7:37 AM) MCH [27.0-31.0 pg] 33.2 g/dL (12/25/16 5:02 AM) 33.4 g/dL (12/24/16 5:06 AM) 33.8 g/dL (12/23/16 7:37 AM) MCHC [32.0-36.0 g/dL] 19.4 % *HI* (12/25/16 5:02 AM) 18.8 % *HI* (12/24/16 5:06 AM) 18.9 % *HI* (12/23/16 7:37 AM) RDW [11.5-14.5 %] 340 K/CMM (12/25/16 5:02 AM) 288 K/CMM (12/24/16 5:06 AM) 302 K/CMM (12/23/16 7:37 AM) Platelet [133-450 K/CMM] 8.6 fL (12/25/16 5:02 AM) 8.5 fL (12/24/16 5:06 AM) 8.4 fL (12/23/16 7:37 AM) MPV [7.4-10.4 fL] 45.4 % (12/25/16 5:02 AM) 50.8 % (12/24/16 5:06 AM) 54.9 % (12/23/16 7:37 AM) Segs [45.0-75.0 %] 37.2 % (12/25/16 5:02 AM) 33.3 % (12/24/16 5:06 AM) 28.7 % (12/23/16 7:37 AM) Lymphocytes [20.0-40.0 %] 8.4 % (12/25/16 5:02 AM) 8.0 % (12/24/16 5:06 AM) 8.4 % (12/23/16 7:37 AM) Monocytes [2.0-12.0 %] 7.7 % *HI* (12/25/16 5:02 AM) 6.7 % *HI* (12/24/16 5:06 AM) 6.9 % *HI* (12/23/16 7:37 AM) Eosinophils [0.0-4.0 %] 1.3 % *HI* (12/25/16 5:02 AM) 1.2 % *HI* (12/24/16 5:06 AM) 1.1 % *HI* (12/23/16 7:37 AM) Basophils [0.0-1.0 %] 3.7 K/CMM (12/25/16 5:02 AM) 4.6 K/CMM (12/24/16 5:06 AM) 5.4 K/CMM (12/23/16 7:37 AM) Segs-Bands # [1.5-8.1 K/CMM] 3.0 K/CMM (12/25/16 5:02 AM) 3.0 K/CMM (12/24/16 5:06 AM) 2.8 K/CMM (12/23/16 7:37 AM) Lymphocytes # [1.0-5.5 K/CMM] 0.7 K/CMM (12/25/16 5:02 AM) 0.7 K/CMM (12/24/16 5:06 AM) 0.8 K/CMM (12/23/16 7:37 AM) Monocytes # [0.0-0.8 K/CMM] 0.6 K/CMM *HI* (12/25/16 5:02 AM) 0.6 K/CMM *HI* (12/24/16 5:06 AM) 0.7 K/CMM *HI* (12/23/16 7:37 AM) Eosinophils # [0.0-0.5 K/CMM] 0.1 K/CMM (12/25/16 5:02 AM) 0.1 K/CMM (12/24/16 5:06 AM) 0.1 K/CMM (12/23/16 7:37 AM) Basophils # [0.0-0.2 K/CMM] Moderate *ABN* (12/18/16 12:16 AM) Polychrom [None Seen] Normal (12/18/16 12:16 AM) Plt Morph 15.1 seconds *HI* (12/08/16 10:03 PM) PT [12.0-14.7 seconds] 1.17 (12/08/16 10:03 PM) INR [0.85-1.17] 32.3 seconds (12/08/16 10:03 PM) PTT [22.9-35.8 seconds] VIRAL - SEROLOGY 1 2 3 Most recent to oldest [Reference Range]: Negative (12/08/16 11:06 PM) Influ A [Negative] Negative (12/08/16 11:06 PM) Influ B [Negative] Immunizations Given and Recorded Vaccine Date Status Refusal Reason influenza virus vaccine, inactivated 05/28/ G iven influenza virus vaccine, inactivated 05/16/ G iven pneumococcal 13-valent vaccine 08/13/16 Given pneumococcal 23-valent vaccine 05/16/12 Given Procedures Procedure Date Related Diagnosis Body Site INCISION AND DEBRIDEMENT RIGHT HIP WOUND 06/03/15 Colonoscopy 2009 Nephrectomy 2006 Amputation1 Colostomy Laparoscopy Wound care 1amputation of left 5th toe. Social History Social History Type Response Substance Abuse Use: Current. Amount: uses marijuana and drinks etoh when able.. Frequency: 1-2 times per week. IV drug use: No. Drug use interferes with work/home: No. Ready to change: Yes. Household substance abuse concerns: No. Sexual Sexually active: No. Exercise Exercise type: no exercise. Employment/School Status: Unemployed. Alcohol Never Smoking Status Current some day smoker; Ty pe: Cigarettes; Tobacco use per day: 1; Number of years: 15; Total pack years: 15; Sta [age]ted [age] age: 15.0; Stopped at age: 30; Previous treatment: None; Ready to change: No; Concerns about tobacco use in household: No; Lives with someon e who smokes; Cigarette Smoking Last 365 Days Yes; Reg Smoking Cessation Cou nseling Yes Assessment and Plan Extracted from: Title: Clinical Document Author: Gemini Leigh MD Date: 12/25/16 Progress Daily [facility] Completed: Sunday, DECEMBER 25, 2016, 16:18 by Gemini Leigh MD RM: 124 - 1P, [id number] BATISTA C31y (: 1985) M Attending: Guevraa Brenner MDPhone: Service: Internal Medicine Reason for Admission: ACUTE ONSET SEPSIS, ACUTE LOWER UTI Working DRG: Septicemia or severe sepsis w/o MV 96+ hours w RETIREMENT Code status: Full Code [Ordered]Current diet: Isolation: Contact [Ordered] Allergies: traMADol, Latex, naproxen, NKFA Allergies: traMADol, Latex, naproxen, NKFA SUBJECTIVE looks better OBJECTIVE HEENT ELISEO Neck supple RS Equal AE b/l no added sounds CVS S1S2 normal no murmur P/A soft Nontender,not distended BS +ve no mass suprapubic catheter and colostomy + NEUROLOGIST AAox3 paraplegia Skin stage 4 left ishcial wound bone palpable 100 % pink rt buttock /sacrumwound stage 4 100 % pink wound rt medial dibbo485% pink smaller left thigh posterior 100 % pink smaller Dry crusted wounds big toe and little toes . almost healed stump wound healed Ext no edema bka left LL ASSESSMENT & EXAM chronic non healing stage 4 sacral ,ischial wounds with chronic OM looks better not a source of infection continue wound vac rt medial ankle /left posterior thigh will continue puricol PLAN & TREATMENT ok to d/c patient Will d/c wound vac as out patient as he is non compliant and will not follow as out patient despite he was told to follow on several occasions aquacel ag/4x4 and tape to b/l buttock wounds DIAGNOSES & PROBLEMS Ready for Discharge (Yes/No)? Greene still necessary (Yes/No): Line still necessary (Yes/No): 24hr Labs 12/25 0502 Glucose Lvl99 BUN61 H Creatinine Lvl3.00 H Sodium Qsr838 Potassium Lvl5.2 H Chloride Agz638 CO219 L AGAP17.2 Calcium Lvl9.1 eGFR26 WBC8.2 RBC2.93 L Hgb8.3 L Hct24.9 L MCV85.0 MCH28.2 MCHC33.2 RDW19.4 H Pckopiut148 MPV8.6 Segs45.4 Monocytes8.4 Nwmdgjkazow52.2 Eosinophils7.7 H Basophils1.3 H Segs-Bands #3.7 Lymphocytes #3.0 Monocytes #0.7 Eosinophils #0.6 H Basophils #0.1 VitalsTmp(F)[id number] 12/25 15:3797.604479/917320--- 12/25 12:0097.128167/039513--- 12/25 08:0097.887803/633080--- 12/25 07:50 1298--- 12/25 04:0097.490780/188778--- 24 Hr Tmax: 97.7F (36.50c) at 12/25 15:3 7Vital Signs are the last 5 in the past 48 hours. DateWt(kg)Wt(lb)Ht(cm)Ht(in)Method 12/09 75.55 166.82804.88 72.00Measured 12/08 (initial) 72.73 160.00Estimated 12/08182.88 72.00Stated I&ORecordInOutBal 12/2423hr Tot 973 [id number] 12/2323hr Tot 9013 [id number] Medications (28) Active Scheduled Meds (14): 12/10/16 ALPRAZOLam (Xanax 2 mg oral tab let) 2 mg PO BID 12/10/16 amitriptyline 50 mg PO Bedtime 12/20/16 carvedilol (Coreg) 6.25 mg PO B ID 12/18/16 enoxaparin 30 mg SUB-Q [id number] 12/11/16 ferrous sulfate 325 mg PO Daily [...] Q4H 12/22/16 hydromorphone (Dilaudid) 1 mg I CIRCUIT MANAGER Q4H 12/09/16 ondansetron 4 mg IVP Q6H 12/09/16 sodium chloride (Saline Flush 0 .9%) 10 ml IVP PRN 12/12/16 sodium chloride (Saline Flush 0 .9%) 10 mL IVP PRN 12/09/16 zolpidem (Ambien) 5 mg PO Bedti me One Time Meds (2): 12/25/16 (Completed) acetaminophen-hydr ocodone ([place] 5/325 oral tablet) 1 tab PO ONCE 12/24/16 (Completed) magnesium sulfate 1 gm IVPB ONCE 100 ml/hr Continuous Infusions (1): 12/20/16 sodium chloride 0.9% 1000 ml IN J 1,000 mL 1,000 mL 100 ml/hr Extracted from: Title: Consult Note Author: Ramírez Holland MD Date: 12/17/16 Assessment/Plan 1.Hyperkalemia Patient with persistently elevated potassium. I suggest discontinuing theheparinas that may cause hyperkalemiaby blocking renin- angiotensinaldosterone synthesis. Would consider discontinuing the beta- george although his heart rate is elevated. And change to a non- dihydropyridine calcium channel blockeralthough I note that his [...]
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
--- OUTSIDE RECORDS SUMMARY | 2020-03-18 10:17 | XMS REPORT | Summary of Care ---
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 [18.0-45.0 mg/dL] 124.0 mg/L *HI* (05/24/17 11:26 AM) CRP [<=2.9 mg/L] HEMATOLOGY 1 2 3 Most recent to oldest [Reference Range]: 7.5 K/CMM (05/28/17 4:09 AM) 8.3 K/CMM (05/27/17 4:58 AM) 6.4 K/CMM (05/26/17 5:01 AM) WBC [3.7-10.4 K/CMM] 4.40 M/CMM *LOW* (05/28/17 4:09 AM) 4.46 M/CMM *LOW* (05/27/17 4:58 AM) 3.90 M/CMM *LOW* (05/26/17 5:01 AM) RBC [4.70-6.10 M/CMM] 11.5 g/dL *LOW* (05/28/17 4:09 AM) 12.2 g/dL *LOW* (05/27/17 4:58 AM) 10.5 g/dL *LOW* (05/26/17 5:01 AM) Hgb [14.0-18.0 g/dL] 36.0 % *LOW* (05/28/17 4:09 AM) 36.6 % *LOW* (05/27/17 4:58 AM) 31.8 % *LOW* (05/26/17 5:01 AM) Hct [42.0-54.0 %] 81.8 fL (05/28/17 4:09 AM) 82.1 fL (05/27/17 4:58 AM) 81.5 fL (05/26/17 5:01 AM) MCV [80.0-94.0 fL] 26.1 pg *LOW* (05/28/17 4:09 AM) 27.3 pg (05/27/17 4:58 AM) 27.0 pg (05/26/17 5:01 AM) MCH [27.0-31.0 pg] 31.9 g/dL *LOW* (05/28/17 4:09 AM) 33.2 g/dL (05/27/17 4:58 AM) 33.1 g/dL (05/26/17 5:01 AM) MCHC [32.0-36.0 g/dL] 16.1 % *HI* (05/28/17 4:09 AM) 15.9 % *HI* (05/27/17 4:58 AM) 15.8 % *HI* (05/26/17 5:01 AM) RDW [11.5-14.5 %] 382 K/CMM (05/28/17 4:09 AM) 364 K/CMM (05/27/17 4:58 AM) 320 K/CMM (05/26/17 5:01 AM) Platelet [133-450 K/CMM] 7.9 fL (05/28/17 4:09 AM) 7.7 fL (05/27/17 4:58 AM) 7.4 fL (05/26/17 5:01 AM) MPV [7.4-10.4 fL] 44.8 % *LOW* (05/28/17 4:09 AM) 69.5 % (05/27/17 4:58 AM) 55.2 % (05/26/17 5:01 AM) Segs [45.0-75.0 %] 43.7 % *HI* (05/28/17 4:09 AM) 24.2 % (05/27/17 4:58 AM) 31.1 % (05/26/17 5:01 AM) Lymphocytes [20.0-40.0 %] 9.4 % (05/28/17 4:09 AM) 5.3 % (05/27/17 4:58 AM) 10.1 % (05/26/17 5:01 AM) Monocytes [2.0-12.0 %] 1.4 % (05/28/17 4:09 AM) 0.3 % (05/27/17 4:58 AM) 2.9 % (05/26/17 5:01 AM) Eosinophils [0.0-4.0 %] 0.7 % (05/28/17 4:09 AM) 0.7 % (05/27/17 4:58 AM) 0.7 % (05/26/17 5:01 AM) Basophils [0.0-1.0 %] 3.4 K/CMM (05/28/17 4:09 AM) 5.7 K/CMM (05/27/17 4:58 AM) 3.6 K/CMM (05/26/17 5:01 AM) Segs-Bands # [1.5-8.1 K/CMM] 3.3 K/CMM (05/28/17 4:09 AM) 2.0 K/CMM (05/27/17 4:58 AM) 2.0 K/CMM (05/26/17 5:01 AM) Lymphocytes # [1.0-5.5 K/CMM] 0.7 K/CMM (05/28/17 4:09 AM) 0.4 K/CMM (05/27/17 4:58 AM) 0.6 K/CMM (05/26/17 5:01 AM) Monocytes # [0.0-0.8 K/CMM] 0.1 K/CMM (05/28/17 4:09 AM) 0.2 K/CMM (05/26/17 5:01 AM) 0.1 K/CMM (05/25/17 10:29 AM) Eosinophils # [0.0-0.5 K/CMM] 0.1 K/CMM (05/28/17 4:09 AM) 0.1 K/CMM (05/27/17 4:58 AM) 0.0 K/CMM (05/25/17 10:29 AM) Basophils # [0.0-0.2 K/CMM] Normal (05/28/17 4:09 AM) RBC Morph Normal (05/28/17 4:09 AM) Plt Morph 15.1 seconds *HI* (05/22/17 2:11 AM) PT [12.0-14.7 seconds] 1.18 *HI* (05/22/17 2:11 AM) INR [0.85-1.17] 36.0 seconds *HI* (05/22/17 2:11 AM) PTT [22.9-35.8 seconds] MOLECULAR DIAGNOSTIC 1 2 3 Most recent to oldest [Reference Range]: Detected *ABN* (05/22/17 2:11 AM) E. coli [Not Detected] Not Detected (05/22/17 2:11 AM) K. oxytoca [Not Detected] Not Detected (05/22/17 2:11 AM) K. pneumoniae [Not Detected] Not Detected (05/22/17 2:11 AM) P. aeruginosa [Not Detected] Not Detected (05/22/17 2:11 AM) Acinetobacter spp. [Not Detected] Not Detected (05/22/17 2:11 AM) Citrobacter spp. [Not Detected] Not Detected (05/22/17 2:11 AM) Enterobacter spp. [Not Detected] Not Detected (05/22/17 2:11 AM) Proteus spp. [Not Detected] Detected *ABN* (05/22/17 2:11 AM) CTX-M (ESBL) [Not Detected] Not Detected (05/22/17 2:11 AM) IMP (carbapenemase) [Not Detected] Not Detected (05/22/17 2:11 AM) KPC (carbapenemase) [Not Detected] Not Detected (05/22/17 2:11 AM) NDM (carbapenemase) [Not Detected] Not Detected (05/22/17 2:11 AM) OXA (carbapenemase) [Not Detected] Not Detected (05/22/17 2:11 AM) VIM (carbapenemase) [Not Detected] Negative (05/24/17 12:28 PM) C difficile DNA [Negative] Immunizations Given and Recorded Vaccine Date Status Refusal Reason hepatitis B adult vaccine 02/28/17 Given influenza virus vaccine, inactivated 05/28/ G iven influenza virus vaccine, inactivated 05/16/12 [...] No. Drug use interferes with work/home: No. Edison dy to change: No. Household substance abuse concerns: No. Cessatio n Education Provided: Yes. Sexual Sexually active: No. Exercise Exercise type: no exercise. Employment/School Status: Unemployed. Alcohol Past, Type Beer. Ready to change: Yes. Smoking Status Current some day smoker; Ty pe: Cigarettes; Tobacco use per day: 1; Started at age: 12.0; Stopped at age: 30; Previ ous treatment: None; Ready to change: No; Concerns about tobacco use in household: No; Lives with someone who smokes; Cigarette Smoking Last 365 Days Yes; Reg Smoking Cessation Counseling Yes1 1started again two months ago Assessment and Plan Extracted from: Title: General Admission H&P * Author: Zechariah Cruz [...]
--- OUTSIDE RECORDS SUMMARY | 2020-03-18 10:17 | XMS REPORT | Summary of Care ---
Author Author [facility] Organization [facility] Address Unknown Phone Unavailable Encounter MOJGAN Jacques(AMARI) [id number] Date(s): 02/23/17 - 03/06/17 [facility] [address] [employer] provided by [employer] [place] [facility] [place] [address]- Discharge Disposition: Acute Care Attending Physician: Brandyn Salinas MD Admitting Physician: Brandyn Salinas MD Vital Signs 1 2 3 Most recent to oldest [Reference Range]: 182.88 cm (03/04/17 11:23 AM) 182.88 cm (02/24/17 3:02 AM) 182.88 cm (02/23/17 2:05 PM) Height 97.5 DegF (03/06/17 4:21 PM) 97.7 DegF (03/06/17 12:24 PM) 97.4 DegF (03/06/17 8:38 AM) Temperature Oral [96.4-99.1 DegF] 108/68 mmHg (03/06/17 4:21 PM) 102/65 mmHg (03/06/17 12:24 PM) 96/62 mmHg (03/06/17 8:38 AM) Blood Pressure [90-140/60-90 mmHg] 18 BRMIN (03/06/17 4:21 PM) 18 BRMIN (03/06/17 12:24 PM) 18 BRMIN (03/06/17 8:38 AM) Respiratory Rate [14-20 BRMIN] 100 bpm (03/06/17 4:21 PM) 89 bpm (03/06/17 12:24 PM) 91 bpm (03/06/17 8:38 AM) Peripheral Pulse Rate [60-100 bpm] 67.273 kg (03/04/17 11:23 AM) 68.182 kg (02/24/17 3:02 AM) 65.909 kg (02/23/17 2:05 PM) Weight 20.11 m2 (03/04/17 11:23 AM) 20.39 m2 (02/24/17 3:02 AM) 19.71 m2 (02/23/17 2:05 PM) Body Mass Index Problem List Condition [...] 7Problem added by Discern Expert. 8urine - 02/24/17 (CRE) 9stool - 11/12/16 10Update: urine - [...] a seizure about a year ago Medications amikacin 1,022.73 mg, Route: IV, ONCE, Dosing Weight 68.182, kg, Start date: 02/25/17 10: 48:00 CDT, Stop date: 02/25/17 10:48:00 CDT Start Date: 02/25/17 Stop Date: 02/25/17 Status: Discontinued amikacin + sodium chloride 0.9% 1000 ml INJ 1,000 mL 500 mg, 2 mL, Route: INTRAVESICULAR, Drug form: INJ, ABXQ8H, Dosing Weight 68.18 2, kg, Priority: NOW, Start date: 02/26/17 17:51:00 CDT, Duration: 30 day, Stop date: 03/28/17 9:51:00 CDT Notes: TIME CRITICAL MEDICATION(Same as: Amikin) MEDICATION WASTE Produc t Size: 500 mgProduct Wasted: _0__ mg Start Date: 02/26/17 Stop Date: 03/06/17 Status: Discontinued amitriptyline 50 mg, 1 tab, Route: PO, Drug form: TAB, Bedtime, Dosing Weight 68.182, kg, Star t date: 02/26/17 21:00:00 CDT, Duration: 30 day, Stop date: 03/27/17 21:00:00 CD T Notes: (Same as: Elavil) Start Date: 02/26/17 Stop Date: 03/06/17 Status: Discontinued amitriptyline 50 mg oral tablet 50 mg = 1 tab, PO, Bedtime, # 90 tab, 3 Refill(s) Start Date: 03/06/17 Stop Date: 03/01/18 Status: Ordered Augmentin 500 mg oral tablet 1 tab, Route: PO, Drug Form: TAB, Dosing Weight 68.182, kg, ABXQ8H, Start date: 02/28/17 17:00:00 CDT, Duration: 30 day, Stop date: 03/30/17 9:00:00 CDT Notes: With food.(Same as: Augmentin 500) Start Date: 02/28/17 Stop Date: 02/28/17 Status: Discontinued Bactrim DS 800 mg- 160 mg oral tablet 1 tab, Route: PO, Drug Form: TAB, Dosing Weight 68.182, kg, [id number], Start date: 02/28/17 9:00:00 CDT, Stop date: 03/29/17 21:00:00 CDT Notes: One DS tablet = trimethoprim 160mg + sulfamethoxazole 800 mgDose based on trimethoprim component On empty stomach with a glass of water. (Same As: Bactr im DS, Septra DS) Start Date: 02/28/17 Stop Date: 02/28/17 Status: Discontinued Benadryl 25 mg, 1 cap, Route: PO, Drug form: CAP, ONCE, Dosing Weight 68.182, kg, PRN All ergic reaction, Start date: 02/25/17 22:50:00 CDT Notes: (Same as: Benadryl) Start Date: 02/25/17 Stop Date: 02/25/17 Status: Completed Beneprotein 7 gm pkt 1 pkt, Route: PO, Drug Form: PWDR, Dosing Weight 68.182, kg, BID-Before Meals, S tart date: 03/03/17 16:30:00 CDT, Duration: 30 day, Stop date: 04/02/17 7:30:00 CDT Notes: (Same as: Beneprotein) Start Date: 03/03/17 Stop Date: 03/06/17 Status: Discontinued carvedilol 3.125 mg, 1 tab, Route: PO, Drug form: TAB, BID-Meals, Dosing Weight 65.909, kg, Start date: 03/01/17 17:00:00 CDT, Duration: 30 day, Stop date: 03/31/17 8:00:00 CDT Notes: Give with food. (Same As: Coreg) Start Date: 03/01/17 Stop Date: 03/06/17 Status: Discontinued carvedilol 6.25 mg, 1 tab, Route: PO, Drug form: TAB, BID-Meals, Dosing Weight 65.909, kg, Start date: 02/24/17 8:00:00 CDT, Duration: 30 day, Stop date: 03/25/17 17:00:00 CDT Notes: Give with food. (Same As: Coreg) Start Date: 02/24/17 Stop Date: 03/01/17 Status: Discontinued carvedilol 3.125 mg oral tablet 3.125 mg = 1 tab, PO, BID-Meals, # 180 tab, 3 Refill(s) Start Date: 03/06/17 Stop Date: 03/01/18 Status: Ordered cefepime 2 gm, Route: IVPB, Drug form: INJ, ONCE, Dosing Weight 65.909, kg, Priority: STA T, Start date: 02/23/17 14:52:00 CDT, Duration: 1 doses or times, Stop date: 14:52:00 CDT, ABX Indication: Other (specify in Comments) Notes: (Same as: Maxipime) MEDICATION WASTE Product Size: 2000 mgProduc t Wasted: ___ mg Start Date: 02/23/17 Stop Date: 02/23/17 Status: Completed ciprofloxacin 500 mg, 1 tab, Route: PO, Drug form: TAB, [id number], Dosing Weight 68.182, kg, Sta rt date: 02/28/17 18:00:00 CDT, Duration: 6 week, Stop date: 04/11/17 6:00:00 CD T, ABX Indication: Skin/Soft Tissue Infection Notes: May interfere w/enteral feedings - Take 1 hr before or 2 hrs after anta cids, dairy pdt & minerals. On empty stomach. Start Date: 02/28/17 Stop Date: 03/06/17 Status: Discontinued ciprofloxacin 500 mg oral tablet 500 mg = 1 tab, PO, [id number], X 37 day, # 74 tab, 0 Refill(s) Start Date: 03/06/17 Stop Date: 04/12/17 Status: Ordered Cymbalta 60 mg, 1 cap, Route: PO, Drug form: DRC, Daily, Dosing Weight 68.182, kg, Start date: 03/04/17 9:00:00 CDT, Duration: 30 day, Stop date: 04/02/17 9:00:00 CDT Notes: (Same as: Cymbalta) (Do Not Crush) Start Date: 03/04/17 Stop Date: 03/06/17 Status: Discontinued Dilaudid 1 mg, Route: IVP, ONCE, Dosing Weight 68.182, kg, Priority: STAT, Start date: 19:36:00 CDT, Stop date: 02/27/17 19:36:00 CDT Start Date: 02/27/17 Stop Date: 02/27/17 Status: Completed Dilaudid 1 mg, Route: IVP, ONCE, Dosing Weight 68.182, kg, Priority: STAT, Start date: 20:39:00 CDT, Stop date: 02/27/17 20:39:00 CDT Start Date: 02/27/17 Stop Date: 02/27/17 Status: Completed Ditropan XL 15 mg, 3 tab, Route: PO, Drug form: ERTAB, BID, Dosing Weight 68.182, kg, Start date: 02/27/17 9:00:00 CDT, Duration: 30 day, Stop date: 03/28/17 21:00:00 CDT Notes: (Same as: Ditropan XL) "Do Not Crush" Start Date: 02/27/17 Stop Date: 03/06/17 Status: Discontinued docusate 100 mg, 1 cap, Route: PO, Drug form: CAP, BID, Dosing Weight 65.909, kg, Start d ate: 02/24/17 9:00:00 CDT, Duration: 30 day, Stop date: 03/25/17 17:00:00 CDT Notes: (Same as: Colace) (Do Not Crush) Start Date: 02/24/17 Stop Date: 03/03/17 Status: Discontinued docusate sodium 100 mg oral capsule 100 mg = 1 cap, PO, BID, PRN Constipation, # 20 cap, 0 Refill(s) Start Date: 03/06/17 Stop Date: 03/16/17 Status: Ordered DULoxetine 60 mg oral delayed release capsule 60 mg = 1 cap, PO, Daily, # 90 cap, 3 Refill(s) Start Date: 03/06/17 Stop Date: 03/01/18 Status: Ordered ertapenem + sodium chloride 0.9% INJ 100 mL 1 gm, Route: IVPB, [id number], Dosing Weight 68.182, kg, Start date: 02/28/17 14:00 :00 CDT, Duration: 12 day, Stop date: 03/11/17 14:00:00 CDT, ABX Indication: Uri nary Tract Infection Notes: (Same as: INVanz) Refrigerate. NOT COMPATIBLE WITH D5W.Stable in refrige rator for 24 hours MEDICATION WASTE Product Size: 1000 mgProduct Wasted : ___ mg Start Date: 02/28/17 Stop Date: 03/06/17 Status: Discontinued fentaNYL 50 microgram, 1 mL, Route: IVP, Drug form: INJ, ONCE, Dosing Weight 65.909, kg, Priority: STAT, Start date: 02/23/17 16:20:00 CDT, Stop date: 02/23/17 16:20:00 CDT Notes: (Same as: Sublimaze) Preservative free. Start Date: 02/23/17 Stop Date: 02/23/17 Status: Completed fentaNYL patch 12 mcg/hr 1 patch, Route: TOP, Drug Form: ERFILM, Dosing Weight 68.182, kg, Q72H, Start da te: 03/04/17 6:00:00 CDT, Duration: 30 day, Stop date: 03/31/17 6:00:00 CDT Notes: (Same as: Duragesic)Check for product integrity. Apply to intact skin"Re move old patch before application of new patch"1 patch delivers 12.5 micrograms Start Date: 03/04/17 Stop Date: 03/04/17 Status: Discontinued fentaNYL patch 12 mcg/hr 1 patch, Route: TOP, Drug Form: ERFILM, Dosing Weight 68.182, kg, Q72H, Start da te: 03/03/17 23:00:00 CDT, Duration: 30 day, Stop date: 03/30/17 23:00:00 CDT Notes: (Same as: Duragesic)Check for product integrity. Apply to intact skin"Re move old patch before application of new patch"1 patch delivers 12.5 micrograms Start Date: 03/03/17 Stop Date: 03/04/17 Status: Discontinued fentaNYL patch 75 mcg/hr 1 patch, Route: TOP, Dosing Weight 68.182, kg, Q72H, Start date: 03/04/17 6:00:0 0 CDT, Duration: 30 day, Stop date: 03/31/17 6:00:00 CDT Start Date: 03/04/17 Stop Date: 03/04/17 Status: Canceled ferrous sulfate 325 mg, 1 tab, Route: PO, Drug form: ECTAB, Breakfast, Dosing Weight 65.909, kg, Start date: 02/24/17 8:00:00 CDT, Duration: 30 day, Stop date: 03/25/17 8:00:00 CDT Notes: Give with food. "Do Not Crush" Start Date: 02/24/17 Stop Date: 03/06/17 Status: Discontinued ferrous sulfate 325 mg oral enteric coated tablet 325 mg = 1 tab, PO, Daily, # 90 tab, 3 Refill(s) Start Date: 03/06/17 Stop Date: 03/01/18 Status: Ordered Flexeril 10 mg, 1 tab, Route: PO, Drug form: TAB, TID, Dosing Weight 65.909, kg, PRN Spas m, Start date: 02/23/17 23:48:00 CDT, Duration: 30 day, Stop date: 03/25/17 23:4 7:00 CDT Notes: (Same As: Flexeril) Start Date: 02/23/17 Stop Date: 03/01/17 Status: Discontinued Flexeril 5 mg, 1 tab, Route: PO, Drug form: TAB, TID, Dosing Weight 68.182, kg, PRN Spasm , Start date: 03/01/17 11:41:00 CDT, Duration: 30 day, Stop date: 03/31/17 11:40 :00 CDT Notes: Same as Flexeril Start Date: 03/01/17 Stop Date: 03/04/17 Status: Discontinued folic acid 1 mg, 1 tab, Route: PO, Drug form: TAB, Daily, Dosing Weight 65.909, kg, Start d ate: 02/24/17 9:00:00 CDT, Duration: 30 day, Stop date: 03/25/17 9:00:00 CDT Notes: (Same as: Folvite) Start Date: 02/24/17 Stop Date: 03/06/17 Status: Discontinued folic acid 1 mg oral tablet 1 mg = 1 tab, PO, Daily, # 90 tab, 3 Refill(s) Start Date: 03/06/17 Stop Date: 03/01/18 Status: Ordered Habitrol 14 mg, 1 patch, Route: TOP, Drug form: ERFILM, Q24H, Start date: 03/01/17 10:00: 00 CDT, Duration: 30 day, Stop date: 03/30/17 10:00:00 CDT Notes: (Same as: Habitrol)"Remove old patch before application of new patch"WAST E: F/P - P Waste Black; E - P Waste Black Start Date: 03/01/17 Stop Date: 03/06/17 Status: Discontinued heparin 5000 units/mL injectable solution 5,000 unit, 1 mL, Route: SUB-Q, Drug form: INJ, Q8H, Dosing Weight 65.909, kg, S tart date: 02/24/17 8:00:00 CDT, Duration: 30 day, Stop date: 03/26/17 0:00:00 C DT Notes: porcine heparin Start Date: 02/24/17 Stop Date: 03/06/17 Status: Discontinued hepatitis A adult vaccine 1,440 unit, 1 ml, Route: IM, Drug Form: INJ, Dosing Weight 68.182, kg, ONCE, Sta rt date: 02/28/17 17:40:00 CDT, Stop date: 02/28/17 17:40:00 CDT Notes: (Same as: Havrix) Non-Formulary Drug. Start Date: 02/28/17 Stop Date: 02/28/17 Status: Ordered hepatitis A adult vaccine 1,440 unit, 1 ml, Route: IM, Drug Form: INJ, Dosing Weight 68.182, kg, ONCALL, S tart date: 02/28/17 9:00:00 CDT, Duration: 1 doses or times Notes: (Same as: Havrix) Non-Formulary Drug. Start Date: 02/28/17 Stop Date: 02/28/17 Status: Discontinued Levi packet 1 pkt, Route: PO, Drug Form: PWDR, Dosing Weight 68.182, kg, BID-Before Meals, S tart date: 03/03/17 16:30:00 CDT, Duration: 14 day, Stop date: 03/17/17 7:30:00 CDT Notes: (Same as: Levi [place]) Start Date: 03/03/17 Stop Date: 03/06/17 Status: Discontinued lidocaine 1% 50 mg, 5 mL, Route: INTRADERM, Drug Form: INJ, Dosing Weight 68.182, kg, ONCALL, Start date: 02/25/17 7:00:00 CDT, Duration: 1 doses or times, Stop date: 0:00:00 CDT Notes: (Same as: Xylocaine) Start Date: 02/25/17 Stop Date: 03/06/17 Status: Discontinued lidocaine topical patch (5% film) 1 patch, TOP, Q24H, # 90 patch, 3 Refill(s) Start Date: 03/06/17 Stop Date: 03/01/18 Status: Ordered lidocaine topical patch (5% film) 1 patch, Route: TOP, Q24H, Drug form: FILM, Start date: 03/01/17 15:00:00 CDT, D uration: 30 day, Stop date: 03/30/17 15:00:00 CDT Notes: Apply only once for up to 12 hours in [id number] period (12 hours on and 12 hours off).(Same as: Lidoderm)"Remove old patch before application of new patch" Start Date: 03/01/17 Stop Date: 03/06/17 Status: Discontinued magnesium gluconate 800 mg, Route: PO, Drug form: TAB, ONCE, Dosing Weight 68.182, kg, Start date: 0 02/26/17 10:45:00 CDT, Stop date: 02/26/17 10:45:00 CDT Notes: (Same as: Almora)Magnesium gluconate 500mg=27mg elemental magnesium Dose = mg magnesium gluconate(___mg elemental magnesium) Start Date: 02/26/17 Stop Date: 02/26/17 Status: Discontinued magnesium oxide 800 mg, 2 tab, Route: PO, Drug form: TAB, ONCE, Dosing Weight 68.182, kg, Start date: 02/26/17 11:22:00 CDT, Stop date: 02/26/17 11:22:00 CDT Notes: (Same as: Mag-Ox 400)Magnesium oxide [id number] elemental magnesiumDose= ____mg magnesium oxide (___mg elemental magnesium) Start Date: 02/26/17 Stop Date: 02/26/17 Status: Completed magnesium sulfate 2 gm, 50 mL, Route: IVPB, Drug form: INJ, ONCE, Dosing Weight 68.182, kg, Total dose = 2 gm, Start date: 02/28/17 16:06:00 CDT, Duration: 1 doses or times, Stop date: 02/28/17 16:06:00 CDT Notes: WASTE: F/P - Sink; E - Municipal Trash Bin Start Date: 02/28/17 Stop Date: 02/28/17 Status: Completed magnesium sulfate 2 gm in Water 50 ml 2 gm, 50 mL, Route: IVPB, Drug form: INJ, Q24H, Dosing Weight 68.182, kg, Start date: 03/02/17 12:00:00 CDT, Duration: 3 doses or times, Stop date: 03/04/17 12: 00:00 CDT Notes: WASTE: F/P - Sink; E - Municipal Trash Bin Start Date: 03/02/17 Stop Date: 03/04/17 Status: Completed melatonin 3 mg oral tablet 9 mg, PO, Bedtime, PRN as needed for insomnia, X 90 day, # 270 tab, 3 Refill(s) Start Date: 03/06/17 Stop Date: 03/01/18 Status: Ordered melatonin 3 mg oral tablet 9 mg, 3 tab, Route: PO, Drug Form: TAB, Dosing Weight 68.182, kg, Bedtime, PRN a s needed for insomnia, Start date: 03/01/17 21:00:00 CDT, Stop date: 03/30/17 21 :00:00 CDT Notes: (Same as: Melatonin) Start Date: 03/01/17 Stop Date: 03/06/17 Status: Discontinued meropenem 1,000 mg, Route: IVPB, Drug form: PDR/INJ, ABXQ8H, Dosing Weight 68.182, kg, CrC l >50, Extended infusion, infuse over 3 hours, Start date: 02/25/17 12:00:00 CDT, Duration: 7 day, Stop date: 03/04/17 4:00:00 CDT, ABX Indication: Urinary Tract Infection Notes: (Same as: Merrem) . MEDICATION WASTE Product Size: 1000 mgProduc t Wasted: ___ mg Start Date: 02/25/17 Stop Date: 02/28/17 Status: Discontinued metroNIDAZOLE 500 mg, 2 tab, Route: PO, Drug form: TAB, ABXQ8H, Dosing Weight 68.182, kg, Star t date: 02/28/17 18:00:00 CDT, Duration: 6 week, Stop date: 04/11/17 10:00:00 CD T, ABX Indication: Skin/Soft Tissue Infection Notes: (Same as: Flagyl) Take with food/ avoid alcohol Start Date: 02/28/17 Stop Date: 03/06/17 Status: Discontinued metroNIDAZOLE 250 mg oral tablet 500 mg = 2 tab, PO, ABXQ8H, X 37 day, # 222 tab, 0 Refill(s) Start Date: 03/06/17 Stop Date: 04/12/17 Status: Ordered minocycline 100 mg, 1 cap, Route: PO, Drug form: CAP, [id number], Dosing Weight 68.182, kg, Sta rt date: 02/28/17 18:00:00 CDT, Duration: 6 week, Stop date: 04/11/17 6:00:00 CD T Notes: (Same as:Minocin) No milk/antacids/iron. Start Date: 02/28/17 Stop Date: 03/06/17 Status: Discontinued minocycline 100 mg oral capsule 100 mg = 1 cap, PO, [id number], X 37 day, # 74 cap, 0 Refill(s) Start Date: 03/06/17 Stop Date: 04/12/17 Status: Ordered morphine 15 mg oral tablet, immediate release 15 mg, 1 tab, Route: PO, Drug form: TAB, ONCE, Dosing Weight 68.182, kg, Priorit y: NOW, Start date: 02/25/17 22:50:00 CDT, Stop date: 02/25/17 22:50:00 CDT Notes: (Same as:MORPhine Sulfate) Start Date: 02/25/17 Stop Date: 02/25/17 Status: Completed morphine Sulfate 4 mg, Route: IVP, ONCE, Dosing Weight 68.182, kg, Start date: 02/25/17 20:58:00 CDT, Stop date: 02/25/17 20:58:00 CDT Start Date: 02/25/17 Stop Date: 02/25/17 Status: Completed nicotine 4 mg, Route: CHEW, Drug form: GUM, Q2H, Dosing Weight 68.182, kg, PRN as needed for smoking cessation, Priority: NOW, Start date: 03/01/17 9:01:00 CDT, Duration : 30 day, Stop date: 03/31/17 9:00:00 CDT Start Date: 03/01/17 Stop Date: 03/01/17 Status: Deleted nicotine 14 mg/24 hr transdermal film, extended release = 1 patch, TOP, Q24H, X 90 day, # 90 patch, 1 Refill(s) Start Date: 03/06/17 Stop Date: 09/02/17 Status: Ordered [place] 10/325 oral tablet 1 tab, Route: PO, Drug Form: TAB, Dosing Weight 65.909, kg, Q4H, PRN Pain Score 4-6, Start date: 02/26/17 15:03:00 CDT, Duration: 30 day, Stop date: 03/28/17 15 :02:00 CDT Notes: Do not exceed 4gm/day of acetaminophen. (Same as: [place] 325/10) Start Date: 02/26/17 Stop Date: 02/27/17 Status: Discontinued [place] 10/325 oral tablet 1 tab, Route: PO, Drug Form: TAB, Dosing Weight 65.909, kg, Q6H, PRN Pain Score 4-6, Start date: 02/23/17 22:37:00 CDT, Duration: 30 day, Stop date: 03/25/17 22 :36:00 CDT Notes: Do not exceed 4gm/day of acetaminophen. (Same as: [place] 325/10) Start Date: 02/23/17 Stop Date: 02/26/17 Status: Discontinued [place] 5/325 oral tablet 1 tab, Route: PO, Drug Form: TAB, Dosing Weight 67.273, kg, Q4H, PRN Pain Score 1-3, Start date: 03/04/17 16:41:00 CDT, Duration: 30 day, Stop date: 04/03/17 16 :40:00 CDT Notes: (Same as: [place] 325/5) Do not exceed 4gm/day of acetaminophen. Start Date: 03/04/17 Stop Date: 03/06/17 Status: Discontinued [place] 5/325 oral tablet 1 tab, Route: PO, Drug Form: TAB, Dosing Weight 67.273, kg, Q4H, PRN Pain Score 1-3, Start date: 03/04/17 16:29:00 CDT, Duration: 30 day, Stop date: 04/03/17 16 :28:00 CDT Start Date: 03/04/17 Stop Date: 03/04/17 Status: Discontinued ondansetron 4 mg, 2 mL, Route: IVP, Drug form: INJ, Q6H, Dosing Weight 65.909, kg, PRN Nause a & Vomiting, Start date: 02/23/17 22:32:00 CDT, Duration: 30 day, Stop date: 03/25/17 22:31:00 CDT Notes: (Same as: Klaus) MEDICATION WASTE Product Size: 4 mgProduct Was reinaldo: ___ mg Start Date: 02/23/17 Stop Date: 03/06/17 Status: Discontinued oxybutynin 5 mg oral tablet, extended release 15 mg = 3 tab, PO, BID, # 540 tab, 3 Refill(s) Start Date: 03/06/17 Stop Date: 03/01/18 Status: Ordered oxyCODONE 5 mg oral tablet 7.5 mg, 1.5 tab, Route: PO, Drug form: TAB, Q6H, Dosing Weight 68.182, kg, PRN P ain Score 7-10, Start date: 03/01/17 11:38:00 CDT, Duration: 30 day, Stop date: 03/31/17 11:37:00 CDT Notes: (Same as: Roxicodone) Start Date: 03/01/17 Stop Date: 03/02/17 Status: Discontinued oxyCODONE 5 mg oral tablet 10 mg, 2 tab, Route: PO, Drug form: TAB, Q6H, Dosing Weight 68.182, kg, PRN Pain Score 7-10, Start date: 02/27/17 16:02:00 CDT, Duration: 30 day, Stop date: 16:01:00 CDT Notes: (Same as: Roxicodone) Start Date: 02/27/17 Stop Date: 03/01/17 Status: Discontinued oxyCODONE 5 mg oral tablet 5 mg, 1 tab, Route: PO, Drug form: TAB, Q6H, Dosing Weight 68.182, kg, PRN Pain Score 7-10, Start date: 03/02/17 11:47:00 CDT, Duration: 30 day, Stop date: 03/05 04/20 11:46:00 CDT Notes: (Same as: Roxicodone) Start Date: 03/02/17 Stop Date: 03/04/17 Status: Discontinued oxyCONTIN 15 mg, 1 tab, Route: PO, Drug form: ERTAB, Q12H, Dosing Weight 68.182, kg, Start date: 03/02/17 21:00:00 CDT, Duration: 30 day, Stop date: 04/01/17 9:00:00 CDT Notes: Do not crush or chew.(Same as: OxyContin) Start Date: 03/02/17 Stop Date: 03/03/17 Status: Discontinued oxyCONTIN 30 mg, 2 tab, Route: PO, Drug form: ERTAB, Q12H, Dosing Weight 68.182, kg, Start date: 02/27/17 21:00:00 CDT, Duration: 30 day, Stop date: 03/29/17 9:00:00 CDT Start Date: 02/27/17 Stop Date: 03/01/17 Status: Discontinued oxyCONTIN 20 mg, 1 tab, Route: PO, Drug form: ERTAB, Q12H, Dosing Weight 68.182, kg, Start date: 03/01/17 21:00:00 CDT, Duration: 30 day, Stop date: 03/31/17 9:00:00 CDT Notes: Do not crush or chew.(Same as: OxyContin) Start Date: 03/01/17 Stop Date: 03/02/17 Status: Discontinued pantoprazole 40 mg, 1 tab, Route: PO, Drug form: ECTAB, Before Dinner, Dosing Weight 65.909, kg, Start date: 02/24/17 16:30:00 CDT, Duration: 30 day, Stop date: 03/25/17 16: 30:00 CDT Notes: Tablet should not be chewed or crushed.(Same as: Protonix) Start Date: 02/24/17 Stop Date: 03/06/17 Status: Discontinued pantoprazole 40 mg oral enteric coated tablet 40 mg = 1 tab, PO, Before Dinner, # 90 tab, 3 Refill(s) Start Date: 03/06/17 Stop Date: 03/01/18 Status: Ordered piperacillin-tazobactam 3.375 gm, Route: IV, Drug form: PDR/INJ, ABXQ6H, Dosing Weight 65.909, kg, Start date: 02/24/17 0:00:00 CDT, Duration: 30 day, Stop date: 03/25/17 18:00:00 CDT, ABX Indication: Urinary Tract Infection Notes: (Same as: Zosyn)Dosing based on Piperacillin component MEDICATION [place] BROOKS Product Size: 3375 mgProduct Wasted: ___ mg Start Date: 02/24/17 Stop Date: 02/25/17 Status: Discontinued polyethylene glycol 3350 17 gm, 1 pkt, Route: PO, Drug form: PWDR, Daily, Dosing Weight 65.909, kg, Start date: 02/24/17 9:00:00 CDT, Duration: 30 day, Stop date: 03/25/17 9:00:00 CDT Notes: Dissolve in 8 oz of water or juice.(Same as: Miralax) Start Date: 02/24/17 Stop Date: 03/03/17 Status: Discontinued potassium phosphate-sodium phosphate 250 mg-280 mg-160 mg oral powder for recons titution 1 pkt, Route: PO, Drug Form: PDR/REC, Dosing Weight 68.182, kg, ONCE, Start date : 02/27/17 14:58:00 CDT, Stop date: 02/27/17 14:58:00 CDT Start Date: 02/27/17 Stop Date: 02/27/17 Status: Completed pregabalin 150 mg, 2 cap, Route: PO, Drug form: CAP, BID, Dosing Weight 65.909, kg, Start d ate: 02/24/17 9:00:00 CDT, Duration: 30 day, Stop date: 03/25/17 17:00:00 CDT Notes: (Same as: Lyrica) Start Date: 02/24/17 Stop Date: 03/02/17 Status: Discontinued pregabalin 225 mg, 3 cap, Route: PO, Drug form: CAP, Q12H, Dosing Weight 65.909, kg, Start date: 03/02/17 21:00:00 CDT, Duration: 30 day, Stop date: 04/01/17 9:00:00 CDT Notes: (Same as: Lyrica) Start Date: 03/02/17 Stop Date: 03/06/17 Status: Discontinued pregabalin 75 mg oral capsule 225 mg = 3 cap, PO, Q12H, # 540 cap, 3 Refill(s) Start Date: 03/06/17 Stop Date: 03/01/18 Status: Ordered remove patch 1 patch, Route: TOP, Q24H, Drug form: ERFILM, Start date: 03/02/17 3:00:00 CDT, Duration: 30 day, Stop date: 03/31/17 3:00:00 CDT Notes: Remove patch 12 hours after application each day. Start Date: 03/02/17 Stop Date: 03/06/17 Status: Discontinued remove patch 1 patch, Route: TOP, Drug form: ERFILM, Q72H, Start date: 03/07/17 6:00:00 CDT, Duration: 30 day, Stop date: 04/03/17 6:00:00 CDT Notes: Remove old patch before application of new patch. Start Date: 03/07/17 Stop Date: 03/06/17 Status: Canceled remove patch 1 patch, Route: TOP, Drug form: ERFILM, Q72H, Start date: 03/06/17 23:00:00 CDT, Duration: 30 day, Stop date: 04/02/17 23:00:00 CDT Notes: Remove old patch before application of new patch. Start Date: 03/06/17 Stop Date: 03/04/17 Status: Discontinued Saline Flush 0.9% 10 mL, Route: MISC, Drug Form: INJ, Dosing Weight 68.182, kg, PRN, PRN Line Flus h, Start date: 02/25/17 6:52:00 CDT, Duration: 30 day, Stop date: 03/27/17 6:51: 00 CDT Notes: (Same as: BD Posiflush) Start Date: 02/25/17 Stop Date: 03/06/17 Status: Discontinued Saline Flush 0.9% 10 mL, Route: MISC, Drug Form: INJ, Dosing Weight 68.182, kg, Q8H, Start date: 0 02/25/17 8:00:00 CDT, Duration: 30 day, Stop date: 03/27/17 0:00:00 CDT Notes: (Same as: BD Posiflush) Start Date: 02/25/17 Stop Date: 03/06/17 Status: Discontinued senna 8.6 mg, 1 tab, Route: PO, Drug Form: TAB, Dosing Weight 68.182, kg, BID, PRN Con stipation, Start date: 03/03/17 22:28:00 CDT, Duration: 30 day, Stop date: 04/02 22:27:00 CDT Notes: (Same as: Senokot) Start Date: 03/03/17 Stop Date: 03/06/17 Status: Discontinued senna 1 tab, Route: PO, Drug Form: TAB, Dosing Weight 68.182, kg, Daily, PRN Constipat ion, Start date: 03/03/17 22:26:00 CDT, Duration: 30 day, Stop date: 04/02/17 22 :25:00 CDT Start Date: 03/03/17 Stop Date: 03/03/17 Status: Discontinued senna 8.6 mg oral tablet 8.6 mg = 1 tab, PO, BID, PRN Constipation, X 90 day, # 180 tab, 3 Refill(s) Start Date: 03/06/17 Stop Date: 03/01/18 Status: Ordered Sodium Chloride 0.9% (Bolus) IV 1,977.27 mL, 1977.27 ml/hr, Infuse Over: 1 hr, Route: IV, 1,977.27, Drug form: Chanda CRUZ, ONCE, Priority: STAT, Dosing Weight 65.909 kg, Start date: 02/23/17 14:52:00 CDT,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
--- OUTSIDE RECORDS SUMMARY | 2020-03-18 10:18 | XMS REPORT | Summary of Care ---
Author Author [facility] ospital Organization [facility] Address Unknown Phone Unavailable Encounter MOJGAN Jacques(AMARI) [id number] Date(s): 06/20/18 - 07/01/18 [facility] [address] [place] [address]- Encounter Diagnosis Cellulitis of sacral region (Discharge Diagnosis) - 06/20/18 Cellulitis of sacral region (Discharge Diagnosis) - 06/20/18 Osteomyelitis of vertebra, sacral and sacrococcygeal region (Final) - 07/16/18 Pressure ulcer of right buttock, stage 3 (Final) - Pressure ulcer of right hip, stage 4 (Final) - Pressure ulcer of left buttock, stage 4 (Final) - Pressure ulcer of sacral region, stage 4 (Final) - Urinary tract infection, site not specified (Final) - Paraplegia, unspecified (Final) - Cellulitis of buttock (Final) - Moderate protein-calorie malnutrition (Final) - Nicotine dependence, cigarettes, uncomplicated (Final) - Chronic viral hepatitis C (Final) - Other chronic pain (Final) - Resistance to multiple antibiotics (Final) - Pressure ulcer of right ankle, unstageable (Final) - Pressure ulcer of right heel, unstageable (Final) - Neuromuscular dysfunction of bladder, unspecified (Final) - Anemia in other chronic diseases classified elsewhere (Final) - Essential (primary) hypertension (Final) - Klebsiella pneumoniae [K. pneumoniae] as the cause of diseases classified elsewh ere (Final) - Essential (hemorrhagic) thrombocythemia (Final) - Calculus of kidney (Final) - Discharge Disposition: Home Care with Home Health Attending Physician: Callum Aguilera MD Admitting Physician: Callum Aguilera MD Vital Signs 1 2 3 Most recent to oldest [Reference Range]: 182.88 cm (06/20/18 10:00 PM) 182.88 cm (06/20/18 8:39 PM) Height 80.003 kg (06/20/18 10:00 PM) Current Weight 97.6 DegF (07/01/18 12:20 PM) 98.2 DegF (07/01/18 8:00 AM) 97.9 DegF (07/01/18 4:00 AM) Temperature Oral [96.4-99.1 DegF] 130/86 mmHg (07/01/18 12:20 PM) 123/88 mmHg (07/01/18 8:00 AM) 115/81 mmHg (07/01/18 4:00 AM) Blood Pressure [90-140/60-90 mmHg] 20 BRMIN (07/01/18 12:20 PM) 18 BRMIN (07/01/18 8:00 AM) 18 BRMIN (07/01/18 4:00 AM) Respiratory Rate [14-20 BRMIN] 103 bpm *HI* (07/01/18 12:20 PM) 120 bpm *HI* (07/01/18 8:00 AM) 99 bpm (07/01/18 4:00 AM) Peripheral Pulse Rate [60-100 bpm] 80.003 kg (06/20/18 8:39 PM) 79.545 kg (06/20/18 2:26 PM) Weight 23.92 m2 (06/20/18 8:39 PM) Body Mass Index Problem List Condition [...] Paraplegia(Confirmed Active ) Pneumonia(Confirmed) Active (Improving) Proteus(Confirmed)39 01/18/18 Active , 40 Providencia(Confirme 03/14/18 Active d)41, [...] PO, Drug form: TAB, Q4H, Dosing Weight 80.003, kg, PRN For Temp > 100.4 F, Start date: 06/20/18 21:14:00 SHELL MOLDING ROLLER BLAST OPERATOR, Duration: 30 day, Stop date: 07/20/18 21:13:00 SHELL MOLDING ROLLER BLAST OPERATOR Notes: Do not exceed 4 gm/day. (Same as: Tylenol) Start Date: 06/20/18 Stop Date: 07/01/18 Status: Discontinued amitriptyline 50 mg, 2 tab, Route: PO, Drug form: TAB, Bedtime, Dosing Weight 80.003, kg, Star t date: 06/23/18 21:00:00 SHELL MOLDING ROLLER BLAST OPERATOR, Duration: 30 day, Stop date: 07/22/18 21:00:00 CS T Notes: (Same as: Elavil) Start Date: 06/23/18 Stop Date: 07/01/18 Status: Discontinued baclofen 10 mg, 1 tab, Route: PO, Drug form: TAB, TID, Dosing Weight 80.003, kg, Start da te: 06/23/18 17:00:00 SHELL MOLDING ROLLER BLAST OPERATOR, Duration: 30 day, Stop date: 07/23/18 13:00:00 SHELL MOLDING ROLLER BLAST OPERATOR Notes: (Same As: Lioresal) Start Date: 06/23/18 Stop Date: 07/01/18 Status: Discontinued cefepime + Sodium Chloride 0.9% IV 100 mL 1 gm, Route: IVP, [id number], Dosing Weight 80.003, kg, CrCl >/= 50 ml/min, Start date: 06/20/18 23:00:00 SHELL MOLDING ROLLER BLAST OPERATOR, Duration: 7 day, Stop date: 06/27/18 17:00:00 SHELL MOLDING ROLLER BLAST OPERATOR, ABX Indication: Skin/Soft Tissue Infection Notes: (Same As: Maxipime) MEDICATION WASTE Product Size: 1000 mgProduc t Wasted: ___ mg Start Date: 06/20/18 Stop Date: 06/27/18 Status: Completed cefepime + sterile water 20 mL 2 gm, Route: IVP, ONCE, Dosing Weight 79.545, kg, Priority: STAT, Start date: 14:58:00 SHELL MOLDING ROLLER BLAST OPERATOR, Stop date: 06/20/18 14:58:00 SHELL MOLDING ROLLER BLAST OPERATOR, ABX Indication: Skin/Soft Tissue Infection Notes: (Same as: Maxipime) MEDICATION WASTE Product Size: 2000 mgProduc t Wasted: ___ mg Start Date: 06/20/18 Stop Date: 06/20/18 Status: Completed Dakins Half Strength Solution 0.25% topical 1 appl, Route: TOP, Drug Form: SOLN, Dosing Weight 80.003, kg, Daily, Start date : 06/25/18 9:00:00 SHELL MOLDING ROLLER BLAST OPERATOR, Duration: 30 day, Stop date: 07/24/18 9:00:00 SHELL MOLDING ROLLER BLAST OPERATOR Notes: Note: half-strength = 0.25% sodium hypochlorite. Start Date: 06/25/18 Stop Date: 07/01/18 Status: Discontinued Dextrose 50% Syringe 25 gm, 50 mL, Route: IVP, Drug Form: INJ, Dosing Weight 80.003, kg, PRN, PRN Blo od Glucose Results, Start date: 06/20/18 21:14:00 SHELL MOLDING ROLLER BLAST OPERATOR, Duration: 30 day, Stop da te: 07/20/18 21:13:00 SHELL MOLDING ROLLER BLAST OPERATOR Start Date: 06/20/18 Stop Date: 07/01/18 Status: Discontinued Dextrose 50% Syringe 12.5 gm, 25 mL, Route: IVP, Drug Form: INJ, Dosing Weight 80.003, kg, PRN, PRN B lood Glucose Results, Start date: 06/20/18 21:14:00 SHELL MOLDING ROLLER BLAST OPERATOR, Duration: 30 day, Stop date: 07/20/18 21:13:00 SHELL MOLDING ROLLER BLAST OPERATOR Start Date: 06/20/18 Stop Date: 07/01/18 Status: Discontinued Dilaudid 0.2 mg, 0.1 mL, Route: IVP, Drug form: INJ, Q3H, Dosing Weight 80.003, kg, PRN P ain Score 7-10, Start date: 06/20/18 21:15:00 SHELL MOLDING ROLLER BLAST OPERATOR, Duration: 30 day, Stop date: 07/20/18 21:14:00 SHELL MOLDING ROLLER BLAST OPERATOR Notes: Same as Dilaudid Start Date: 06/20/18 Stop Date: 06/21/18 Status: Discontinued Dilaudid 2 mg, 1 tab, Route: PO, Drug form: TAB, ONCE, Dosing Weight 80.003, kg, Start da te: 06/25/18 1:32:00 SHELL MOLDING ROLLER BLAST OPERATOR, Stop date: 06/25/18 1:32:00 SHELL MOLDING ROLLER BLAST OPERATOR Notes: (Same as: Dilaudid) Start Date: 06/25/18 Stop Date: 06/25/18 Status: Completed Dilaudid 0.2 mg, 0.1 mL, Route: IVP, Drug form: INJ, Q2H, Dosing Weight 80.003, kg, PRN P ain Score 7-10, Start date: 06/21/18 17:03:00 SHELL MOLDING ROLLER BLAST OPERATOR, Duration: 30 day, Stop date: 07/21/18 17:02:00 SHELL MOLDING ROLLER BLAST OPERATOR Notes: Same as Dilaudid Start Date: 06/21/18 Stop Date: 07/01/18 Status: Discontinued ferrous sulfate 325 mg, 1 tab, Route: PO, Drug form: TAB, Daily, Dosing Weight 80.003, kg, Start date: 06/24/18 9:00:00 SHELL MOLDING ROLLER BLAST OPERATOR, Duration: 30 day, Stop date: 07/23/18 9:00:00 SHELL MOLDING ROLLER BLAST OPERATOR Notes: Give with food.iron elemental 89aa=370ag as ferrous sulfateDose=___mg daniel mental iron Start Date: 06/24/18 Stop Date: 07/01/18 Status: Discontinued glucagon 1 mg, Route: IM, Drug form: PDR/INJ, PRN, Dosing Weight 80.003, kg, PRN Blood Gl ucose Results, Start date: 06/20/18 21:14:00 SHELL MOLDING ROLLER BLAST OPERATOR, Duration: 30 day, Stop date: 1 09/20/17 21:13:00 SHELL MOLDING ROLLER BLAST OPERATOR Start Date: 06/20/18 Stop Date: 07/01/18 Status: Discontinued Levi packet 1 pkt, Route: PO, Drug Form: PWDR, Dosing Weight 80.003, kg, BID-Before Meals, S tart date: 06/23/18 16:30:00 SHELL MOLDING ROLLER BLAST OPERATOR, Duration: 14 day, Stop date: 07/07/18 7:30:00 SHELL MOLDING ROLLER BLAST OPERATOR Notes: (Same as: Levi Colon) Start Date: 06/23/18 Stop Date: 07/01/18 Status: Discontinued Lactated Ringers (Bolus) IV 2,386.35 mL, 1988.63 ml/hr, Infuse Over: 1.2 hr, Route: IV, 2,386.35, Drug form: INJ, ONCE, Priority: STAT, Dosing Weight 79.545 kg, Start date: 06/20/18 14:58: 00 SHELL MOLDING ROLLER BLAST OPERATOR, Stop date: 06/20/18 14:58:00 SHELL MOLDING ROLLER BLAST OPERATOR Start Date: 06/20/18 Stop Date: 06/20/18 Status: Completed lisinopril 5 mg, 1 tab, Route: PO, Drug form: TAB, Daily, Dosing Weight 80.003, kg, Priorit y: NOW, Start date: 06/27/18 15:00:00 SHELL MOLDING ROLLER BLAST OPERATOR, Duration: 30 day, Stop date: 07/27/18 9:00:00 SHELL MOLDING ROLLER BLAST OPERATOR Notes: (Same as: ivpeter Zestril) Start Date: 06/27/18 Stop Date: 07/01/18 Status: Discontinued lisinopril 5 mg oral tablet 5 mg = 1 tab, PO, Daily, # 30 tab, 0 Refill(s), Pharmacy: [id number] Start Date: 06/30/18 Stop Date: 07/30/18 Status: Ordered Lovenox 40 mg, 0.4 mL, Route: SUB-Q, Drug form: INJ, [id number], Dosing Weight 80.003, kg, Start date: 06/21/18 10:00:00 SHELL MOLDING ROLLER BLAST OPERATOR, Duration: 30 day, Stop date: 07/20/18 10:00: 00 SHELL MOLDING ROLLER BLAST OPERATOR Notes: (Same as: Lovenox) Start Date: 06/21/18 Stop Date: 07/01/18 Status: Discontinued metoprolol tartrate 25 mg, 1 tab, Route: PO, Drug form: TAB, BID, Dosing Weight 80.003, kg, Start da te: 06/24/18 17:00:00 SHELL MOLDING ROLLER BLAST OPERATOR, Duration: 30 day, Stop date: 07/24/18 9:00:00 SHELL MOLDING ROLLER BLAST OPERATOR Notes: (Same as: Lopressor) Start Date: 06/24/18 Stop Date: 07/01/18 Status: Discontinued metoprolol tartrate 25 mg oral tablet 25 mg = 1 tab, PO, BID, # 60 tab, 0 Refill(s), Pharmacy: [id number] Start Date: 06/30/18 Stop Date: 07/30/18 Status: Ordered multivitamin 1 tab, Route: PO, Drug Form: TAB, Dosing Weight 80.003, kg, Daily, Start date: 08/25/17 9:00:00 SHELL MOLDING ROLLER BLAST OPERATOR, Duration: 30 day, Stop date: 07/24/18 9:00:00 SHELL MOLDING ROLLER BLAST OPERATOR Notes: (Same as:Thera)WASTE: F/P - Black; E - Municipal Trash Bin Take with kameron d. Start Date: 06/25/18 Stop Date: 07/01/18 Status: Discontinued [place] 5/325 oral tablet 1 tab, Route: PO, Drug Form: TAB, Dosing Weight 79.545, kg, ONCE, STAT, Start da te: 06/20/18 15:26:00 SHELL MOLDING ROLLER BLAST OPERATOR, Stop date: 06/20/18 15:26:00 SHELL MOLDING ROLLER BLAST OPERATOR Notes: (Same as: [place] 325/5) Do not exceed 4gm/day of acetaminophen. Start Date: 06/20/18 Stop Date: 06/20/18 Status: Completed ondansetron 4 mg, 2 mL, Route: IVP, Drug form: INJ, Q8H, Dosing Weight 80.003, kg, PRN Nause a & Vomiting, Start date: 06/20/18 21:14:00 SHELL MOLDING ROLLER BLAST OPERATOR, Duration: 30 day, Stop date: 07/20/18 21:13:00 SHELL MOLDING ROLLER BLAST OPERATOR Notes: (Same as: Klaus) MEDICATION WASTE Product Size: 4 mgProduct Was reinaldo: ___ mg Start Date: 06/20/18 Stop Date: 06/21/18 Status: Discontinued ondansetron 4 mg, 2 mL, Route: IVP, Drug form: INJ, Q6H, Dosing Weight 80.003, kg, PRN as ne eded for nausea/vomiting, Start date: 06/21/18 17:01:00 SHELL MOLDING ROLLER BLAST OPERATOR, Duration: 30 day, S top date: 07/21/18 17:00:00 SHELL MOLDING ROLLER BLAST OPERATOR Notes: (Same as: Klaus) MEDICATION WASTE Product Size: 4 mgProduct Was reinaldo: ___ mg Start Date: 06/21/18 Stop Date: 07/01/18 Status: Discontinued pantoprazole 40 mg, 1 tab, Route: PO, Drug form: ECTAB, Daily, Dosing Weight 80.003, kg, Star t date: 06/24/18 9:00:00 SHELL MOLDING ROLLER BLAST OPERATOR, Duration: 30 day, Stop date: 07/23/18 9:00:00 SHELL MOLDING ROLLER BLAST OPERATOR Notes: Tablet should not be chewed or crushed.(Same as: Protonix) Start Date: 06/24/18 Stop Date: 07/01/18 Status: Discontinued Saline Flush 0.9% 10 mL, Route: IVP, Drug Form: INJ, Dosing Weight 79.545, kg, PRN, PRN Line Flush , Start date: 06/20/18 14:58:00 SHELL MOLDING ROLLER BLAST OPERATOR, Duration: 30 day, Stop date: 07/20/18 14:57 :00 SHELL MOLDING ROLLER BLAST OPERATOR Notes: (Same as: BD Posiflush) Start Date: 06/20/18 Stop Date: 07/01/18 Status: Discontinued Sodium Chloride 0.9% IV 1,000 mL 1,000 mL, Rate: 50 ml/hr, Infuse over: 20 hr, Route: IV, Dosing Weight 80.003 kg , Total Volume: 1,000, Start date: 06/24/18 16:03:00 SHELL MOLDING ROLLER BLAST OPERATOR, Duration: 30 day, Stop date: 07/24/18 16:02:00 SHELL MOLDING ROLLER BLAST OPERATOR, 2.02, m2 Start Date: 06/24/18 Stop Date: 06/29/18 Status: Discontinued Tylenol with Codeine #3 oral tablet 1 tab, PO, TID, PRN Pain, X 7 day, # 21 tab, 0 Refill(s) Start Date: 06/30/18 Stop Date: 07/07/18 Status: Discontinued vancomycin 750 mg, 250 mL, Route: IVPB, Drug form: SOLN, [id number], Start date: 06/25/18 10:0 0:00 SHELL MOLDING ROLLER BLAST OPERATOR, Duration: 3 day, Stop date: 06/27/18 22:00:00 SHELL MOLDING ROLLER BLAST OPERATOR, ABX Indication: Ski n/Soft Tissue Infection Notes: TIME CRITICAL MEDICATIONSame as: Vancocin Start Date: 06/25/18 Stop Date: 06/27/18 Status: Completed vancomycin 1.25 gm, 250 mL, Route: IVPB, Drug form: INJ, ONCE, Start date: 06/20/18 17:18:0 0 SHELL MOLDING ROLLER BLAST OPERATOR, Stop date: 06/20/18 17:18:00 SHELL MOLDING ROLLER BLAST OPERATOR, ABX Indication: Skin/Soft Tissue Infect ion Notes: TIME CRITICAL MEDICATIONSame as: Vancocin-NS (premixed)Infusion rate< 1000 mg: infuse over 1 [id number] - 1500 mg: infuse over 1.5 [id number] - 2000 mg: infuse over 2 hours> 2001 mg: infuse over 2.5 hours Start Date: 06/20/18 Stop Date: 06/20/18 Status: Completed vancomycin 1.25 gm, 250 mL, Route: IVPB, Drug form: INJ, [id number], Start date: 06/21/18 6:00 :00 SHELL MOLDING ROLLER BLAST OPERATOR, Duration: 7 day, Stop date: 06/27/18 18:00:00 SHELL MOLDING ROLLER BLAST OPERATOR, ABX Indication: Skin /Soft Tissue Infection Notes: TIME CRITICAL MEDICATIONSame as: Vancocin-NS (premixed)Infusion rate< 1000 mg: infuse over 1 [id number] - 1500 mg: infuse over 1.5 [id number] - 2000 mg: infuse over 2 hours> 2001 mg: infuse over 2.5 hours Start Date: 06/21/18 Stop Date: 06/25/18 Status: Discontinued vancomycin + Sodium Chloride 0.9% IV 500 mL 2,000 mg, Route: IVPB, Drug form: INJ, ONCE, Dosing Weight 79.545, kg, Time Crit ical Medication, Priority: STAT, Start date: 06/20/18 14:58:00 SHELL MOLDING ROLLER BLAST OPERATOR, Stop date: 08/20/17 14:58:00 SHELL MOLDING ROLLER BLAST OPERATOR, ABX Indication: Skin/Soft Tissue Infection Notes: TIME CRITICAL MEDICATION(Same As: Vancocin)Infusion rate< 1000 mg: infuse over 1 [id number] - 1500 mg: infuse over 1.5 [id number] - 2000 mg: infuse over 2 hours> 2001 mg: infuse over 2.5 hoursFor adult patients only: Round to nearest 250 mg per Medical Staff approval MEDICATION WASTE Product Size: 1000 mgProduct Wasted: ___ mg Start Date: 06/20/18 Stop Date: 06/20/18 Status: Deleted Vancomycin Pharmacy Dosing 1 ea, Route: IV, ONCALL, Dosing Weight 80.003, kg, Start date: 06/20/18 22:00:00 SHELL MOLDING ROLLER BLAST OPERATOR, Duration: 5 day, Stop date: 06/25/18 21:59:00 SHELL MOLDING ROLLER BLAST OPERATOR, ABX Indication: Skin/So ft Tissue Infection Start Date: 06/20/18 Stop Date: 06/20/18 Status: Deleted Vancomycin Pharmacy Dosing 1 ea, Route: IV, Drug form: PDR/INJ, ONCALL, Dosing Weight 79.545, kg, Start jonathon e: 06/20/18 15:00:00 SHELL MOLDING ROLLER BLAST OPERATOR, Duration: 7 day, Stop date: 06/27/18 14:59:00 SHELL MOLDING ROLLER BLAST OPERATOR, ABX Indication: Skin/Soft Tissue Infection Notes: TIME CRITICAL MEDICATION(Same As: Vancocin)For adult patients only: Round to nearest 250 mg per Medical Staff approval Start Date: 06/20/18 Stop Date: 07/01/18 Status: Discontinued Vasotec 1.25 mg, 1 mL, Route: IVP, Drug form: INJ, Q6H, Dosing Weight 80.003, kg, PRN Hy pertension, Start date: 06/26/18 16:23:00 SHELL MOLDING ROLLER BLAST OPERATOR, Duration: 30 day, Stop date: 07/05 10/19 16:22:00 SHELL MOLDING ROLLER BLAST OPERATOR Notes: (Same as: Vasotec-IV) Start Date: 06/26/18 Stop Date: 07/01/18 Status: Discontinued Results 1 2 3 Most recent to oldest [Reference Range]: 0.06 ng/mL (06/20/18 4:30 PM) Procalcitonin Lvl [0.00-0.10 ng/mL] 2.4 K/CMM (06/29/18 6:13 AM) 3.7 K/CMM (06/27/18 11:49 AM) 5.3 K/CMM (06/24/18 11:11 AM) Neutrophils # [1.5-8.1 K/CMM] 1.6 K/CMM (06/29/18 6:13 AM) 2.4 K/CMM (06/27/18 11:49 AM) 1.5 K/CMM (06/24/18 11:11 AM) Lymphocytes # [1.0-5.5 K/CMM] 0.4 K/CMM (06/29/18 6:13 AM) 0.4 K/CMM (06/27/18 11:49 AM) 0.3 K/CMM (06/24/18 11:11 AM) Monocytes # [0.0-0.8 K/CMM] 0.3 K/CMM (06/29/18 6:13 AM) 0.3 K/CMM (06/27/18 11:49 AM) 0.1 K/CMM (06/24/18 11:11 AM) Eosinophils # [0.0-0.5 K/CMM] 0.0 K/CMM (06/29/18 6:13 AM) 0.0 K/CMM (06/27/18 11:49 AM) 0.0 K/CMM (06/24/18 11:11 AM) Basophils # [0.0-0.2 K/CMM] 2200 *NA* (06/26/18 9:59 PM) 0600 *NA* (06/25/18 5:25 AM) [id number] *NA* (06/22/18 4:33 AM) Vanco Tr TND 10.8 ug/ml *NA* (06/26/18 9:59 PM) 4.3 ug/ml *NA* (06/25/18 5:25 AM) 25.7 ug/ml *NA* (06/22/18 4:33 AM) Vanco Tr Normal (06/29/18 6:13 AM) Normal (06/27/18 11:49 AM) Normal (06/24/18 11:11 AM) Plt Morph Unable to Calculate *NA* (06/21/18 3:13 AM) Bili Indirect [0.0-1.0] 112 mL/min/1.73m2 1 *NA* (06/29/18 6:13 AM) 98 mL/min/1.73m2 2 *NA* (06/28/18 5:40 AM) 72 mL/min/1.73m2 3 *NA* (06/24/18 11:11 AM) eGFR 0.5 *LOW* (06/21/18 3:13 AM) 0.5 *LOW* (06/20/18 4:30 PM) A/G Ratio [0.7-1.6] 2.5 g/dL *LOW* (06/21/18 3:13 AM) 2.9 g/dL *LOW* (06/20/18 4:30 PM) Albumin Lvl [3.5-5.0 g/dL] 95 unit/L (06/21/18 3:13 AM) 108 unit/L (06/20/18 4:30 PM) Alk Phos [39-136 unit/L] 14 unit/L (06/21/18 3:13 AM) 19 unit/L (06/20/18 4:30 PM) ALT [0-65 unit/L] 12.5 mEq/L (06/29/18 6:13 AM) 10.6 mEq/L (06/28/18 5:40 AM) 12.8 mEq/L (06/24/18 11:11 AM) AGAP [10.0-20.0 mEq/L] 1+ *ABN* (06/29/18 6:13 AM) 1+ *ABN* (06/27/18 11:49 AM) 1+ *ABN* (06/24/18 11:11 AM) Anisocyte [None Seen] 12 unit/L (06/21/18 3:13 AM) 12 unit/L (06/20/18 4:30 PM) AST [0-37 unit/L] 15 (06/20/18 4:30 PM) B/C Ratio [6-25] 1.0 % (06/29/18 6:13 AM) 0.7 % (06/27/18 11:49 AM) 0.1 % (06/24/18 11:11 AM) Basophils [0.0-1.0 %] 14 mg/dL (06/29/18 6:13 AM) 19 mg/dL (06/28/18 5:40 AM) 13 mg/dL (06/24/18 11:11 AM) BUN [7-22 mg/dL] 8.9 mg/dL (06/29/18 6:13 AM) 9.3 mg/dL (06/28/18 5:40 AM) 9.1 mg/dL (06/24/18 11:11 AM) Calcium Lvl [8.5-10.5 mg/dL] 70 unit/L (06/20/18 4:30 PM) Total CK [12-191 unit/L] 107 mEq/L (06/29/18 6:13 AM) 110 mEq/L *HI* (06/28/18 5:40 AM) 110 mEq/L *HI* (06/24/18 11:11 AM) Chloride Lvl [95-109 mEq/L] 25 mEq/L (06/29/18 6:13 AM) 24 mEq/L (06/28/18 5:40 AM) 24 mEq/L (06/24/18 11:11 AM) CO2 [24-32 mEq/L] 0.90 mg/dL (06/29/18 6:13 AM) 1.00 mg/dL (06/28/18 5:40 AM) 1.30 mg/dL (06/24/18 11:11 AM) Creatinine Lvl [0.50-1.40 mg/dL] <0.1 mg/dL (06/21/18 3:13 AM) Bili Direct [0.0-0.3 mg/dL] 5.7 % *HI* (06/29/18 6:13 AM) 3.8 % (06/27/18 11:49 AM) 1.9 % (06/24/18 11:11 AM) Eosinophils [0.0-4.0 %] 5.3 g/dL *HI* (06/21/18 3:13 AM) 5.6 g/dL *HI* (06/20/18 4:30 PM) Globulin [2.7-4.2 g/dL] 82 mg/dL (06/29/18 6:13 AM) 80 mg/dL (06/28/18 5:40 AM) 125 mg/dL *HI* (06/24/18 11:11 AM) Glucose Lvl [70-99 mg/dL] 35.0 % *LOW* (06/29/18 6:13 AM) 28.9 % *LOW* (06/27/18 11:49 AM) 29.5 % *LOW* (06/24/18 11:11 AM) Hct [42.0-54.0 %] 11.4 g/dL *LOW* (06/29/18 6:13 AM) 9.1 g/dL *LOW* (06/27/18 11:49 AM) 9.5 g/dL *LOW* (06/24/18 11:11 AM) Hgb [14.0-18.0 g/dL] 1+ (06/27/18 11:49 AM) 1+ (06/20/18 4:30 PM) Hypochrom [None Seen] 1.14 (06/20/18 4:30 PM) INR [0.85-1.17] 3.5 mEq/L (06/29/18 6:13 AM) 3.6 mEq/L (06/28/18 5:40 AM) 3.8 mEq/L (06/24/18 11:11 AM) Potassium Lvl [3.5-5.1 mEq/L] 1.0 mMol/L (06/21/18 3:13 AM) 1.0 mMol/L (06/20/18 4:30 PM) Lactic Acid Lvl [0.5-2.2 mMol/L] 34.4 % (06/29/18 6:13 AM) 35.6 % (06/27/18 11:49 AM) 20.8 % (06/24/18 11:11 AM) Lymphocytes [20.0-40.0 %] 23.8 pg *LOW* (06/29/18 6:13 AM) 23.4 pg *LOW* (06/27/18 11:49 AM) 23.6 pg *LOW* (06/24/18 11:11 AM) MCH [27.0-31.0 pg] 32.7 g/dL (06/29/18 6:13 AM) 31.6 g/dL *LOW* (06/27/18 11:49 AM) 32.3 g/dL (06/24/18 11:11 AM) MCHC [32.0-36.0 g/dL] 72.6 fL *LOW* (06/29/18 6:13 AM) 73.9 fL *LOW* (06/27/18 11:49 AM) 73.1 fL *LOW* (06/24/18 11:11 AM) MCV [80.0-94.0 fL] 1+ *ABN* (06/29/18 6:13 AM) 2+ *ABN* (06/27/18 11:49 AM) 2+ *ABN* (06/24/18 11:11 AM) Microcyte [None Seen] 8.2 % (06/29/18 6:13 AM) 5.4 % (06/27/18 11:49 AM) 3.8 % (06/24/18 11:11 AM) Monocytes [2.0-12.0 %] 8.4 fL (06/29/18 6:13 AM) 8.2 fL (06/27/18 11:49 AM) 8.4 fL (06/24/18 11:11 AM) MPV [7.4-10.4 fL] 141 mEq/L (06/29/18 6:13 AM) 141 mEq/L (06/28/18 5:40 AM) 143 mEq/L (06/24/18 11:11 AM) Sodium Lvl [135-145 mEq/L] 327 K/CMM (06/29/18 6:13 AM) 474 K/CMM *HI* (06/27/18 11:49 AM) 374 K/CMM (06/24/18 11:11 AM) Platelet [133-450 K/CMM] Moderate *ABN* (06/24/18 11:11 AM) Moderate *ABN* (06/22/18 4:33 AM) Polychrom [None Seen] 50.7 % (06/29/18 6:13 AM) 54.5 % (06/27/18 11:49 AM) 73.4 % (06/24/18 11:11 AM) Segs [45.0-75.0 %] 17.6 mg/dL *LOW* (06/26/18 5:44 AM) Prealbumin [18.0-45.0 mg/dL] 7.8 g/dL (06/21/18 3:13 AM) 8.5 g/dL *HI* (06/20/18 4:30 PM) Total Protein [6.4-8.4 g/dL] 14.6 seconds (06/20/18 4:30 PM) PT [12.0-14.7 seconds] 34.9 seconds (06/20/18 4:30 PM) PTT [22.9-35.8 seconds] 4.82 M/CMM (06/29/18 6:13 AM) 3.91 M/CMM *LOW* (06/27/18 11:49 AM) 4.04 M/CMM *LOW* (06/24/18 11:11 AM) RBC [4.70-6.10 M/CMM] 25.6 % *HI* (06/29/18 6:13 AM) 26.5 % *HI* (06/27/18 11:49 AM) 26.4 % *HI* (06/24/18 11:11 AM) RDW [11.5-14.5 %] 0.3 mg/dL (06/21/18 3:13 AM) 0.3 mg/dL (06/20/18 4:30 PM) Bili Total [0.2-1.3 mg/dL] <0.02 ng/mL (06/20/18 4:30 PM) Troponin-I [0.00-0.40 ng/mL] Many /HPF *ABN* (06/20/18 4:48 PM) UA Bacteria [None Seen /HPF] Negative *NA* (06/20/18 4:48 PM) UA Bili [Negative] Negative (06/20/18 4:48 PM) UA Blood [Negative] Yellow *NA* (06/20/18 4:48 PM) UA Color Negative mg/dL *NA* (06/20/18 4:48 PM) UA Glucose [Negative mg/dL] Negative mg/dL *NA* (06/20/18 4:48 PM) UA Ketones [Negative mg/dL] Moderate *ABN* (06/20/18 4:48 PM) UA Leuk Est [Negative] Few /LPF *NA* (06/20/18 4:48 PM) UA Mucus [None Seen /LPF] Negative (06/20/18 4:48 PM) UA Nitrite [Negative] 6.0 (06/20/18 4:48 PM) UA pH [5.0-8.0] 100 mg/dL *ABN* (06/20/18 4:48 PM) UA Protein [Negative mg/dL] 2 /HPF (06/20/18 4:48 PM) UA RBC [0-2 /HPF] 1.013 (06/20/18 4:48 PM) UA Spec Grav [<=1.030] None Seen *NA* (06/20/18 4:48 PM) UA Sq Epi Clear (06/20/18 4:48 PM) UA Turbidity [Clear] <=1.0 mg/dL *NA* (06/20/18 4:48 PM) UA Urobilinogen [0.1-1.0 mg/dL] 12 /HPF *HI* (06/20/18 4:48 PM) UA WBC [0-5 /HPF] 7.3 ug/ml *NA* (06/24/18 11:11 AM) 19.3 ug/ml *NA* (06/23/18 4:52 AM) Vanco Lvl 5.3 K/CMM (06/29/18 6:13 AM) 6.8 K/CMM (06/27/18 11:49 AM) 7.2 K/CMM (06/24/18 11:11 AM) WBC [3.7-10.4 K/CMM] 1Result Comment: The eGFR is calculated using [...] be mul tiplied by the estimated BMI. Microbiology Reports TEST: Culture: Wound/Abscess w/Gram Stain STATUS: Auth (Verified) BODY SITE: Sacral SOURCE: Wound, Non Surgical COLLECTED DATE/TIME: 06/20/18 7:00 PM FINAL REPORT Few Pseudomonas aeruginosa Few Acinetobacter baumannii This Report Contains A Correction Corrected Report Is: Culture In Progress Disregard Previous Report Of: Staphylococcus aureus Corrected Report Called To: Patria Moore, 06/21/2018 10:37 Read Back Ok . Reset culture and Gram stain 06/24/2018 21:06 Reset Gram stain same as initial result: Rare WBC'S , No organisms seen. Further culture results to follow. STAIN REPORT Rare WBC's No Organisms Seen ORGANISM:Pseudomonas aeruginosa ORGANISM:Acinetobacter baumannii TEST: Culture: Urine STATUS: Auth (Verified) BODY SITE: SOURCE: Urine, Clean Catch COLLECTED DATE/TIME: 06/20/18 3:08 PM FINAL REPORT >100,000 CFU/mL Klebsiella pneumoniae ssp pneumoniae Multi-drug Resistant Organism ORGANISM:Klebsiella pneumoniae ssp pneumoniae Immunizations Given and Recorded Vaccine Date Status [...] No. Drug use interferes with work/home: No. Lara dy to change: No. Household substance abuse [...] Unable to obtain; Reg Smoking Cessation Counselin g No; Tobacco use per day: 1; Started [age] age[age] 12.0; Stopped at age: [age]; 1 entered on: 07/04/18 1started again two months ago Assessment and Plan Extracted from: Title: Discharge summary Author: Prabhu Fine MD ate: 07/01/18 Patient was to discharge yesterday. Dis charge was canceled after difficulty with contacting [facility]. There were no acute events overnight. The patient's vital signs have been stable over the past 24 hours. Today the patient had no complaints. His clinical status is unchanged. He will be discharging to [facility]. For full discharge summary see dictation dated 06/30/18. Extracted from: Title: Clinical Document Author: Guido Moreira MD Jonathon e: 07/01/18 INFECTIOUS DISEASES PROGRESS NOTE GUIDO MOREIRA [...] follow up on discharge call Dr Moreira [phone] SUBJECTIVE: Seen and examined. Events noted. VITAL SIGNS: Vitals and Temp: VitalsTmp(F)[id number] 06/29 [id number]--- 06/28 [id number]--- 06/28 15:[id number]--- 06/28 12:[id number]------ 06/28 [id number]--- 24 Hr Tmax: 99.1F (37.28c) at 06/28 19:4 8Vital Signs are the last 5 in the past 48 hours. ROS: otherwise unremarkable PHYSICAL EXAMINATION: Awake lying on bed NAD No thrush CTAB RRR S1&S2 BS+ve NT/ND No edema No Rash No focal defecit IVs ok LABORATORY DATA: Labs (Last four charted values) WBC 5.3(JUN 29)6.8(JUN 27)7.2(JUN 24)7.9(JUN 23) Hgb L 11.4(JUN 29)L 9.1(JUN 27)L 9.5(JUN 24)L 8.7(JUN 23) Hct L 35.0(JUN 29)L 28.9(JUN 27)L 29.5(JUN 24)L 27.9(JUN 23) Plt 327(JUN 29)H 474(JUN 27)374(JUN 24)343(JUN 23) Na 141(JUN 29)141(JUN 28)143(JUN 24)139(JUN 23) K 3.5(JUN 29)3.6(JUN 28)3.8(JUN 24)3.7(JUN 23) CO2 25(JUN 29)24(JUN 28)24(JUN 24)L 21(JUN 23) Cl 107(JUN 29)H 110(JUN 28)H 110(JUN 24)H 110(JUN 23) Cr 0.90(JUN 29)1.00(JUN 28)1.30(JUN 24)1.20(JUN 23) BUN 14(JUN 29)19(JUN 28)13(JUN 24)9(JUN 23) Glucose Random 82(JUN 29)80(JUN 28)H 125(JUN 24)86(JUN 23) Ca 8.9(JUN 29)9.3(JUN 28)9.1(JUN 24)9.1(JUN 23) PT 14.6(JUN 20) INR 1.14(JUN 20) PTT 34.9(JUN 20) Troponin <0.02(JUN 20) Total CK 70(JUN 20) CULTURES: DATE/SOURCE/RESULT/ SENSITIVITIES IMAGING: Scheduled Meds (10): 06/23/18 amitriptyline 50 mg PO Bedtime 06/23/18 baclofen 10 mg PO TID 06/21/18 enoxaparin (Lovenox) 40 mg SUB- Q [id number] 06/24/18 ferrous sulfate 325 mg PO Daily 06/27/18 lisinopril 5 mg PO Daily 06/24/18 metoprolol (metoprolol tartrate ) 25 mg PO BID 06/25/18 multivitamin 1 tab PO Daily 06/23/18 nutritional supplement (Levi p acket) 1 pkt PO BID-Before Meals 06/24/18 pantoprazole 40 mg PO Daily 06/25/18 sodium hypochlorite topical (Da kins Half Strength Solution 0.25% topical) 1 appl TOP Daily Extracted from: Title: History and Physical Author: Cordelia Hebert Date: 06/21/18 33-year-old with 1.Cellulitis of sacral region(L03.31 9), Cellulitis of sacral region(L03.319) Ordered: cefepime + Sodium Chloride 0.9% IV 100 mL, 1 gm, Route: IVP, ABXQ6H, Dosing Weight 80.003, kg, CrCl >/= 50 ml/min, Start date: 06/20/18 23:00:00 [employer] OPERATOR, Duration: 7 day, Stop date: 06/27/18 17:00:00 SHE[employer] MOLDING ROLL[employer] BLAST OPERATOR, ABX Indication: Skin/Soft Tissue Infection CDM Sepsis, 06/20/18 21:12:00 SHE[employer] M[employer]ING RO[employer] BLAST OPERATOR, 1 CDM SSTI, Skin and Soft Tissue Antibiotic, 06/20/18 21:12:00 SHE[employer] MOLDING ROLLER BLAST OPERATOR, 1 2.Decubitus ulcers(L89.90), Decubitus ulcers(L89.90) Ordered: cefepime + Sodium Chloride 0.9% IV 100 mL, 1 gm, Route: IVP, ABXQ6H, Dosing Weight 80.003, kg, CrCl >/= 50 ml/min, Start date: 06/20/18 23:00:00 SHE[employer] MOLDING ROLLER BLAST OPERATOR, Duration: 7 day, Stop date: 06/27/18 17:00:00 SHE[employer] MOLDING ROLLER BLAST OPERATOR, ABX Indication: Skin/Soft Tissue Infection CDM Sepsis, 06/20/18 21:12:00 SHE[employer] MOLDING ROLLER BLAST OPERATOR, 1 CDM SSTI, Skin and Soft Tissue Antibiotic, 06/20/18 21:12:00 SHE[employer] MOLDING ROLLER BLAST OPERATOR, 1 3.Tachycardia(R00.0), Tachycardia(R00.0) Ordered: cefepime + Sodium Chloride 0.9% IV 100 mL, 1 gm, Route: IVP, ABXQ6H, Dosing Weight 80.003, kg, CrCl >/= 50 ml/min, Start date: 06/20/18 23:00:00 SHE[employer] MOLDING ROLLER BLAST OPERATOR, Duration: 7 day, Stop date: 06/27/18 17:00:00 SHE[employer] MOLDING ROLLER BLAST OPERATOR, ABX Indication: Skin/Soft Tissue Infection CDM Sepsis, 06/20/18 21:12:00 SHE[employer] MOLDING ROLLER BLAST OPERATOR, 1 CDM SSTI, Skin and Soft Tissue Antibiotic, 06/20/18 21:12:00 SHE[employer] MOLDING ROLLER BLAST OPERATOR, 1 6.Anemia(D64.9) 6.Paraplegia(G82.20), Paraplegia(G82.20) Ordered: cefepime + Sodium Chloride 0.9% IV 100 mL, 1 gm, Route: IVP, ABXQ6H, Dosing Weight 80.003, kg, CrCl >/= 50 ml/min, Start date: 06/20/18 23:00:00 SHE[employer] MOLDING ROLLER BLAST OPERATOR, Duration: 7 day, Stop date: 06/27/18 17:00:00 SHE[employer] MOLDING ROLLER BLAST OPERATOR, ABX Indication: Skin/Soft Tissue Infection CDM Sepsis, 06/20/18 21:12:00 SHELL MOLDING ROLLER BLAST OPERATOR, 1 CDM SSTI, Skin and Soft Tissue Antibiotic, 06/20/18 21:12:00 SHELL MOLDING ROLLER BLAST OPERATOR, 1 7.Hepatitis C(B19.20) We will start [...]
--- OUTSIDE RECORDS SUMMARY | 2020-03-18 10:18 | XMS REPORT | Summary of Care ---
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 (05/23/18 9:19 AM) RBC product A POS *Unknown* (05/23/18 9:50 AM) ABO/Rh See Note (06/01/18 12:13 AM) See Note (05/30/18 7:12 PM) See Note (05/24/18 8:37 PM) UDS Note 12 % (05/23/18 9:50 AM) % Satur Fe [12-57 %] 0.4 *LOW* (05/21/18 10:30 AM) A/G Ratio [0.7-1.6] Negative (05/23/18 9:50 AM) Antibody Scrn <2 (06/01/18 12:13 AM) Acetaminoph Lvl [10-20] 2.4 g/dL *LOW* (05/21/18 10:30 AM) Albumin Lvl [3.5-5.0 g/dL] 109 unit/L (05/21/18 10:30 AM) Alk Phos [39-136 unit/L] 26 unit/L (05/21/18 10:30 AM) ALT [0-65 unit/L] Negative *NA* (06/01/18 12:13 AM) Negative *NA* (05/30/18 7:12 PM) Negative *NA* (05/24/18 8:37 PM) U Amph Scr [Negative] 14.1 mEq/L (06/01/18 12:13 AM) 20.3 mEq/L *HI* (06/01/18 12:13 AM) 16.3 mEq/L (05/30/18 6:08 PM) AGAP [10.0-20.0 mEq/L] 1+ *ABN* (06/01/18 12:13 AM) 1+ *ABN* (05/30/18 6:08 PM) 1+ *ABN* (05/29/18 1:42 AM) Anisocyte [None Seen] 19 unit/L (05/21/18 10:30 AM) AST [0-37 unit/L] 14 (05/21/18 10:30 AM) B/C Ratio [6-25] Negative *NA* (06/01/18 12:13 AM) Negative *NA* (05/30/18 7:12 PM) Negative *NA* (05/24/18 8:37 PM) U Chelsie Scr [Negative] 1.0 % (06/01/18 12:13 AM) 1.3 % *HI* (05/30/18 6:08 PM) 0.2 % (05/29/18 1:42 AM) Basophils [0.0-1.0 %] Positive *ABN* (06/01/18 12:13 AM) Positive *ABN* (05/30/18 7:12 PM) Negative *NA* (05/24/18 8:37 PM) U Benzodiaz Scr [Negative] 11.0 uMol/L (05/23/18 9:50 AM) Homocyst Tot [3.7-13.9 uMol/L] 35 mg/dL *HI* (06/01/18 12:13 AM) 36 mg/dL *HI* (06/01/18 12:13 AM) 40 mg/dL *HI* (05/30/18 6:08 PM) BUN [7-22 mg/dL] 9.4 mg/dL (06/01/18 12:13 AM) 9.1 mg/dL (06/01/18 12:13 AM) 9.2 mg/dL (05/30/18 6:08 PM) Calcium Lvl [8.5-10.5 mg/dL] 54 unit/L (05/21/18 10:30 AM) Total CK [12-191 unit/L] 104 mEq/L (06/01/18 12:13 AM) 104 mEq/L (06/01/18 12:13 AM) 105 mEq/L (05/30/18 6:08 PM) Chloride Lvl [95-109 mEq/L] 22 mEq/L *LOW* (06/01/18 12:13 AM) 19 mEq/L *LOW* (06/01/18 12:13 AM) 20 mEq/L *LOW* (05/30/18 6:08 PM) CO2 [24-32 mEq/L] Negative *NA* (06/01/18 12:13 AM) Negative *NA* (05/30/18 7:12 PM) Negative *NA* (05/24/18 8:37 PM) U Cocaine Scr [Negative] 1.60 mg/dL *HI* (06/01/18 12:13 AM) 1.54 mg/dL *HI* (06/01/18 12:13 AM) 1.43 mg/dL *HI* (05/30/18 6:08 PM) Creatinine Lvl [0.50-1.40 mg/dL] 158.0 mg/L *HI* (05/21/18 10:30 AM) CRP [<=2.9 mg/L] <0.1 mg/dL (05/23/18 9:50 AM) Bili Direct [0.0-0.3 mg/dL] 3.3 % (06/01/18 12:13 AM) 2.6 % (05/30/18 6:08 PM) 4.5 % *HI* (05/29/18 1:42 AM) Eosinophils [0.0-4.0 %] 90 ng/mL (05/23/18 9:50 AM) Ferritin Lvl [22-275 ng/mL] 20.1 ng/mL (05/23/18 9:50 AM) Folate Lvl [>=3.0 ng/mL] 6.2 g/dL *HI* (05/21/18 10:30 AM) Globulin [2.7-4.2 g/dL] 76 mg/dL (06/01/18 12:13 AM) 73 mg/dL (06/01/18 12:13 AM) 82 mg/dL (05/30/18 6:08 PM) Glucose Lvl [70-99 mg/dL] 32.3 % *LOW* (06/01/18 12:13 AM) 30.9 % *LOW* (05/30/18 6:08 PM) 29.5 % *LOW* (05/29/18 1:42 AM) Hct [42.0-54.0 %] 9.8 g/dL *LOW* (06/01/18 12:13 AM) 9.6 g/dL *LOW* (05/30/18 6:08 PM) 9.3 g/dL *LOW* (05/29/18 1:42 AM) Hgb [14.0-18.0 g/dL] 5.6 % (05/22/18 2:47 AM) Hgb A1C [<=5.6 %] 1.11 (05/25/18 1:26 AM) 1.17 (05/21/18 10:30 AM) INR [0.85-1.17] 25 ug/dl *LOW* (05/23/18 9:50 AM) Iron [45-160 ug/dl] 4.1 mEq/L (06/01/18 12:13 AM) 4.3 mEq/L (06/01/18 12:13 AM) 4.3 mEq/L (05/30/18 6:08 PM) Potassium Lvl [3.5-5.1 mEq/L] 1.2 mMol/L (05/25/18 1:26 AM) 0.7 mMol/L (05/21/18 10:30 AM) Lactic Acid Lvl [0.5-2.2 mMol/L] 137 unit/L (05/23/18 9:50 AM) LDH [98-192 unit/L] 45 unit/L *LOW* (05/21/18 10:30 AM) Lipase Lvl [73-393 unit/L] 31.4 % (06/01/18 12:13 AM) 23.1 % (05/30/18 6:08 PM) 37.5 % (05/29/18 1:42 AM) Lymphocytes [20.0-40.0 %] 22.5 pg *LOW* (06/01/18 12:13 AM) 22.2 pg *LOW* (05/30/18 6:08 PM) 23.5 pg *LOW* (05/29/18 1:42 AM) MCH [27.0-31.0 pg] 30.2 g/dL *LOW* (06/01/18 12:13 AM) 31.1 g/dL *LOW* (05/30/18 6:08 PM) 31.6 g/dL *LOW* (05/29/18 1:42 AM) MCHC [32.0-36.0 g/dL] 74.3 fL *LOW* (06/01/18 12:13 AM) 71.2 fL *LOW* (05/30/18 6:08 PM) 74.3 fL *LOW* (05/29/18 1:42 AM) MCV [80.0-94.0 fL] Negative *NA* (06/01/18 12:13 AM) U Methadone Scr [Negative] 2.1 mg/dL (06/01/18 12:13 AM) 2.1 mg/dL (06/01/18 12:13 AM) 1.9 mg/dL (05/30/18 6:08 PM) Magnesium Lvl [1.8-2.4 mg/dL] 1+ *ABN* (06/01/18 12:13 AM) 2+ *ABN* (05/30/18 6:08 PM) 1+ *ABN* (05/29/18 1:42 AM) Microcyte [None Seen] 12.9 % *HI* (06/01/18 12:13 AM) 7.6 % (05/30/18 6:08 PM) 6.5 % (05/29/18 1:42 AM) Monocytes [2.0-12.0 %] 8.1 fL (06/01/18 12:13 AM) 8.0 fL (05/30/18 6:08 PM) 8.1 fL (05/29/18 1:42 AM) MPV [7.4-10.4 fL] 136 mEq/L (06/01/18 12:13 AM) 139 mEq/L (06/01/18 12:13 AM) 137 mEq/L (05/30/18 6:08 PM) Sodium Lvl [135-145 mEq/L] Positive *ABN* (06/01/18 12:13 AM) Positive *ABN* (05/30/18 7:12 PM) Positive *ABN* (05/24/18 8:37 PM) U Opiate Scr [Negative] Negative *NA* (06/01/18 12:13 AM) Negative *NA* (05/30/18 7:12 PM) Negative *NA* (05/24/18 8:37 PM) U Phencyclidine Scr [Negative] 4.6 mg/dL *HI* (06/01/18 12:13 AM) 4.9 mg/dL *HI* (06/01/18 12:13 AM) 4.2 mg/dL (05/30/18 6:08 PM) Phosphorus [2.5-4.5 mg/dL] 389 K/CMM (06/01/18 12:13 AM) 466 K/CMM *HI* (05/30/18 6:08 PM) 488 K/CMM *HI* (05/29/18 1:42 AM) Platelet [133-450 K/CMM] 51.4 % (06/01/18 12:13 AM) 65.4 % (05/30/18 6:08 PM) 51.3 % (05/29/18 1:42 AM) Segs [45.0-75.0 %] Negative *NA* (06/01/18 12:13 AM) U Propoxyph Scr [Negative] 8.6 g/dL *HI* (05/21/18 10:30 AM) Total Protein [6.4-8.4 g/dL] 14.3 seconds (05/25/18 1:26 AM) 15.0 seconds *HI* (05/21/18 10:30 AM) PT [12.0-14.7 seconds] 34.8 seconds (05/25/18 1:26 AM) 38.8 seconds *HI* (05/21/18 10:30 AM) PTT [22.9-35.8 seconds] 4.35 M/CMM *LOW* (06/01/18 12:13 AM) 4.34 M/CMM *LOW* (05/30/18 6:08 PM) 3.97 M/CMM *LOW* (05/29/18 1:42 AM) RBC [4.70-6.10 M/CMM] 21.8 % *HI* (06/01/18 12:13 AM) 22.1 % *HI* (05/30/18 6:08 PM) 22.0 % *HI* (05/29/18 1:42 AM) RDW [11.5-14.5 %] 2.2 % *HI* (05/23/18 9:50 AM) Retic Auto [0.5-1.5 %] 1.7 mg/dL (06/01/18 12:13 AM) Salicylate Lvl [0.0-30.0 mg/dL] >100 mm/hr *ABN* (05/21/18 10:30 AM) Sed Rate [0-15 mm/hr] 0.2 mg/dL (05/23/18 9:50 AM) 0.3 mg/dL (05/21/18 10:30 AM) Bili Total [0.2-1.3 mg/dL] Positive *ABN* (06/01/18 12:13 AM) Positive *ABN* (05/30/18 7:12 PM) Positive *ABN* (05/24/18 8:37 PM) U Cannab Scr [Negative] 11.4 ug/ml *NA* (05/26/18 7:25 AM) Tobra Lvl 200 ug/dl *LOW* (05/23/18 9:50 AM) TIBC [228-428 ug/dl] <0.02 ng/mL (05/30/18 6:08 PM) <0.02 ng/mL (05/21/18 10:29 AM) Troponin-I [0.00-0.40 ng/mL] Occasional /HPF *NA* (05/25/18 1:26 AM) UA Bacteria [None Seen /HPF] None Seen (05/21/18 12:59 PM) UA Bacteria [None Seen] Negative *NA* (05/25/18 1:26 AM) Negative (05/21/18 12:59 PM) UA Bili [Negative] Negative (05/25/18 1:26 AM) Small *ABN* (05/21/18 12:59 PM) UA Blood [Negative] Light Yellow *NA* (05/25/18 1:26 AM) Yellow (05/21/18 12:59 PM) UA Color [Yellow] Negative mg/dL *NA* (05/25/18 1:26 AM) UA Glucose [Negative mg/dL] Negative (05/21/18 12:59 PM) UA Glucose [Negative] Trace mg/dL *ABN* (05/25/18 1:26 AM) UA Ketones [Negative mg/dL] Trace *ABN* (05/21/18 12:59 PM) UA Ketones [Negative] Small *ABN* (05/25/18 1:26 AM) Negative (05/21/18 12:59 PM) UA Leuk Est [Negative] Negative (05/25/18 1:26 AM) Negative (05/21/18 12:59 PM) UA Nitrite [Negative] 7.5 (05/25/18 1:26 AM) UA pH [5.0-8.0] 6.5 (05/21/18 12:59 PM) UA pH [5.0-8.0] 50 mg/dL *ABN* (05/25/18 1:26 AM) 30 mg/dL *ABN* (05/21/18 12:59 PM) UA Protein [Negative mg/dL] 1 /HPF (05/25/18 1:26 AM) 0-2 /HPF (05/21/18 12:59 PM) UA RBC [0-2 /HPF] 1.009 (05/25/18 1:26 AM) <=1.005 (05/21/18 12:59 PM) UA Spec Grav [<=1.030] None Seen *NA* (05/25/18 1:26 AM) UA Sq Epi None Seen (05/21/18 12:59 PM) UA Sq Epi [Few] Clear (05/25/18 1:26 AM) Clear (05/21/18 12:59 PM) UA Turbidity [Clear] <=1.0 mg/dL *NA* (05/25/18 1:26 AM) UA Urobilinogen [0.1-1.0 mg/dL] 0.2 EU/dL (05/21/18 12:59 PM) UA Urobilinogen [0.1-1.0 EU/dL] 16 /HPF *HI* (05/25/18 1:26 AM) UA WBC [0-5 /HPF] 0-2 /HPF (05/21/18 12:59 PM) UA WBC [None Seen /HPF] Occasional /HPF *ABN* (05/25/18 1:26 AM) UA [place] Yeast [None Seen /HPF] 175 ug/dl (05/23/18 9:50 AM) UIBC [110-370 ug/dl] 704 pg/mL (05/23/18 9:50 AM) Vitamin B12 Lvl [254-1320 pg/mL] 10.1 K/CMM (06/01/18 12:13 AM) 12.1 K/CMM *HI* (05/30/18 6:08 PM) 7.4 K/CMM (05/29/18 1:42 AM) WBC [3.7-10.4 K/CMM] 1.20 mMol/L (06/01/18 12:13 AM) 1.11 mMol/L (05/26/18 12:38 AM) Ca Ion WB [1.05-1.25 mMol/L] 1.12 mMol/L (06/01/18 12:13 AM) 1.11 mMol/L (05/26/18 12:38 AM) Ca Norm WB [1.05-1.25 mMol/L] Comment 5 *NA* (05/23/18 9:50 AM) Disclaimer (Org Acid) 158663 IU/mL *NA* (05/27/18 2:49 AM) HCV RNA VirLoad 5.2 IU/mL *NA* (05/27/18 2:49 AM) HCV RNA Log10 1Result Comment: This test was developed and its performance characteristics determined by [facility]. It has not been cleared or approved by the U.S. Food and Drug Administration. The FDA has determined that such clearance or approval is not necessary. This test is used for clinical purposes. It should not be regarded as investigational or for research. Performed At: [address] [id number] Patricia Condon MD Ph:[phone] 2Result Comment: The eGFR is calculated using [...] tiplied by the estimated BMI. 4Result Comment: The eGFR is calculated using the [...] be mul tiplied by the estimated BMI. 5Result Comment: This test was developed and its performance characteristics determined by [facility]. It has not been cleared or approved by the Food and Drug Administration. Performed At: [facility] [id number] Patricia Condon MD Ph:[phone] Microbiology Reports TEST: Culture: Urine STATUS: Auth (Verified) BODY SITE: SOURCE: Urine, Catheterized COLLECTED DATE/TIME: 05/25/18 5:09 AM FINAL REPORT No Growth Immunizations Given and Recorded Vaccine Date Status [...] No. Drug use interferes with work/home: No. [place] dy to change: No. Household substance abuse [...] ago Assessment and Plan Extracted from: Title: History and Physical Author: Frederick Paul MD Date: 05/21/18 Mr. Colby is a 33 y.o. male w/ PMH [...] Lipase wnl - CT w/ evidenceof reactive lymphadeno david likely 2/2 sacral ulcers - Consider C. dif. testing and culture if diarrhea persists - Med rec shows pt was on docusate, erika a; will discontinue - Pain control with [place] #Chronic HepC - Viral load pending - Consult GI regarding outpatient treatm ent options #HTN - Not on any medications at home - Currently normotensive; continue to mo nitor Lovenox Full code; Floor w/ Medical Team B Addendum by [facility] , Ezra Estrada MD on I examined the patient heath garcia with Dr. Paul. I have reviewed his note and agree with 05/22/2018 his findings, assessment an d plan. The patient is paraplegic with a large decubiti, a 23:19 CDT suprapubic catheter, and sa cral osteo with MDR organisms. He is admitted with fever. Will culture. Jefry Thurston MD, FACP
--- OUTSIDE RECORDS SUMMARY | 2020-03-18 10:18 | XMS REPORT | Summary of Care ---
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 Cigarettes; Ready to change: Yes; Exposure to Tobacco Smoke None; Cigarette Smokin g Last 365 Days Yes; Reg Smoking Cessation Counseling Yes1 entered on: 12/03/19 1quit 3 months ago but sometimes had with cigar 2-3 times a week Assessment and Plan Extracted from: Title: Clinical Document Author: Zachary Lew MD te: 12/09/19 Wound Care Progress Note Zachary Lew MD, PA Subjective: Patient seen, examined and events noted. pt is comfortable Objective: Vitals and Temp: VitalsTmp(F)XluwbRHMFIvH2PJD0 12/08 11:[id number]/[id number]--- 12/08 08:0897.773796/543150--- 12/07 23:[id number]--- 12/07 21:0098.403650/[id number]--- 12/07 15:4697.7 24 Hr Tmax: 98.2F (36.78c) at 12/07 21:0 0Vital Signs are the last 5 in the past 48 hours. 24hr Labs 12/08 1036 Glucose Lvl94 BUN29 H Creatinine Lvl1.67 H Sodium Cfp486 Potassium Lvl5.0 Chloride Zwo402 H CO221 L AGAP12.0 Calcium Lvl8.7 eGFR53 Diagnostics: PHYSICAL EXAMINATION Chest: Clear, no rhonchi Heart: S1, S2, regular rhythm. 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 Extracted from: Title: Clinical Document Author: Eun Quispe MD Date: 12/06/19 Pulmonary and Critical Care Consult Note [facility] Reason for consult: Hypotension HPI: [...] ulcer and osteomyelitis. [facility] He was sent back [...] systems: Unable to obtain Allergies Allergies (6) ActiveReaction DULoxetineNone documented morphineNone documented traMADolNone documented LatexNone documented naproxenNone documented NKFANone documented Procedure History Debridement of sacral pressure ulcer: 06/03/15 Colonoscopy: 2008 Nephrectomy: 2006 Laparoscopy Amputation Wound care Colostomy Past Medical [...] 9% IV 100 mL 100 mg IV [id number] 100 ml/hr 12/06/19 midodrine 10 mg PO TID 12/03/19 multivitamin 1 tab PO Daily 12/03/19 oxybutynin 5 mg PO TID 12/03/19 pregabalin (Lyrica) 100 mg PO B edtime 12/03/19 sodium bicarbonate 1,300 mg PO TID 12/03/19 zinc sulfate 220 mg PO Daily Continuous Infusions: None Labs (Last four charted values) WBC 9.9(DECEMBER 05)8.1(DECEMBER 04)6.1(DECEMBER 03)7.2(DECEMBER 02) Hgb L 8.4(DECEMBER 05)L 9.4(DECEMBER 04)L 7.3(DECEMBER 03)L 7.4(DECEMBER 02) Hct L 26.3(DECEMBER 05)L 30.3(DECEMBER 04)L 23.7(DECEMBER 03)L 23.5(DECEMBER 02) Plt 209(DECEMBER 05)262(DECEMBER 04)231(DECEMBER 03)250(DECEMBER 02) Na 136(DECEMBER 05)L 134(DECEMBER 05)142(DECEMBER 04)135(DECEMBER 03) K 4.7(DECEMBER 05)4.9(DECEMBER 05)3.8(DECEMBER 04)H 5.4(DECEMBER 03) CO2 L 21(DECEMBER 05)L 18(DECEMBER 05)L 15(DECEMBER 04)L 16(DECEMBER 03) Cl 109(DECEMBER 05)106(DECEMBER 05)H 117(DECEMBER 04)H 110(DECEMBER 03) Cr H 2.62(DECEMBER 05)H 2.77(DECEMBER 05)H 1.92(DECEMBER 04)H 2.62(DECEMBER 03) BUN H 38(DECEMBER 05)H 38(DECEMBER 05)H 31(DECEMBER 04)H 50(DECEMBER 03) Glucose Random H 111(DECEMBER 05)H 107(DECEMBER 05)H 104(DECEMBER 04)92(DECEMBER 03) Mg L 1.6(DECEMBER 02)L 1.6(DEC 01) Phos 3.2(DECEMBER 02)3.2(DECEMBER 02)3.0(DEC 01) Ca L 7.6(DECEMBER 05)L 7.9(DECEMBER 05)C 6.5(DECEMBER 04)L 8.3(DECEMBER 03) PT H 14.8(DEC 01) INR 1.15(DEC 01) PTT 35.1(DEC 01) Troponin <0.02(DEC 01) Total CK 103(DEC 01) All Imaging reviewed. Objective: I&ORecordInOutBal 12/423hr Tot [id number] 12/323hr Tot 6163 170 6857 Lines, Tubes, and Drains: 12/05/2019 20:00 GI Ostomy: Colostomy Es tablished left middle quadrant 12/05/2019 20:00 Ostomy: Suprapubic E stablished Midline 12/03/2019 04:00 Central Lines: Subclavi an, right Non-tunneled (most common) Double 12/06/2019 13:00 SpO2 [id number] 12/06/2019 07:38 O2 Sat LocationRight hand/finger Vital Signs (last 24 hrs) Last Charted Temp Oral98 DegF (DECEMBER 05 11:52) Heart Rate Ufrbpi20 bpm (DECEMBER 05 14:05) Resp Rate 14 BRMIN (DECEMBER 05 14:05) SBP90 mmHg (DECEMBER 05 14:05) Exam: Refused physical [...] heparin Pulmonary and Critical Care Medicine Extracted from: Title: History and Physical Author: Monserrat Phillips MD Date: 12/02/19 34-year-old M with PMH ofparaplegia se condcynthia [place], neurogenic bladder status post suprapubic catheter, HTN,anemia of chronic disease,chronic pain,chronic sacral wound with osteomyelitis,status post right nephrectomy,CKD 3 and right ankle and heel stageIIulcersadmitted for ARF, complicated UTI, right lower extremity cellulitis 1.Renal failure (ARF), acute on chroni c(N17.9) Serum creatinine 3.1 up from a baseline of 1.6. Recentlyadmitted for ARF thought to be secondary toCIN. At that time serum creatinine improved andnephrology was not consulted. --Nephrology consult --IV fluids --Avoid nephrotoxins and monitor Ordered: Admit/Condition, 12/02/19 23:05:00 CDT, Status: Inpatient, Telemetry Capable Location, Expected LOS: 2 Midnights, Kaitlin Montoya MD, Admit MD Review/Approve Yes, Isolation: Contact, Acute renal failure | Cellulitis | Complicated UTI (urinary tract infection) 2.Complicated UTI (urinary tract infection)(N39.0) Patient with suprapubic catheter. Urinalysis withlarge leuk esterase and 74 WBCs. History ofESBL UTI --Meropenemrenally dosed --Infectious disease consult --Follow-up blood and urine cultures Ordered: Admit/Condition, 12/02/19 23:05:00 CDT, Status: Inpatient, Telemetry Capable Location, Expected LOS: 2 Midnights, Kaitlin Montoya MD, Admit MD Review/Approve Yes, Isolation: Contact, Acute renal failure [...]
--- OUTSIDE RECORDS SUMMARY | 2020-03-18 10:18 | XMS REPORT | Summary of Care ---
Author Author [facility] Organization [facility] Address Unknown Phone Unavailable Encounter MOJGAN Jacques(AMARI) [id number] Date(s): 03/14/18 - 03/19/18 [facility] [address] [place] [address]- Encounter Diagnosis Infection and inflammatory reaction due to cystostomy catheter, initial encounte r (Final) - 03/26/18 Sepsis, unspecified organism (Final) - Pressure ulcer of left buttock, stage 4 (Final) - Pressure ulcer of other site, stage 3 (Final) - Pressure ulcer of right buttock, stage 4 (Final) - Urinary tract infection, site not specified (Final) - Paraplegia, unspecified (Final) - Other osteomyelitis, other site (Final) - Anemia in other chronic diseases classified elsewhere (Final) - Neuromuscular dysfunction of bladder, unspecified (Final) - Resistance to multiple antibiotics (Final) - Personal history of urinary (tract) infections (Final) - Other chronic pain (Final) - Major depressive disorder, single episode, unspecified (Final) - Essential (primary) hypertension (Final) - Unspecified viral hepatitis C 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 (Final) - Acquired absence of kidney (Final) - Nicotine dependence, cigarettes, uncomplicated (Final) - 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) - Unspecified injury at T7-T10 level of thoracic spinal cord, sequela (Final) - Hypospadias, unspecified (Final) - Unspecified fracture of lower end of right tibia, subsequent encounter for close d fracture with routine healing (Final) - Other fracture of upper and lower end of right fibula, subsequent encounter for closed fracture with routine healing (Final) - Unspecified fall, subsequent encounter (Final) - Unspecified open wound, right foot, subsequent encounter (Final) - Dependence on wheelchair (Final) - Cannabis use, unspecified, uncomplicated (Final) - Phantom limb syndrome with pain (Final) - 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) - Colostomy status (Final) - Discharge Disposition: Custodial Care Attending Physician: Jessie King MD Admitting Physician: Jessie King MD Vital Signs 1 2 3 Most recent to oldest [Reference Range]: 182.88 cm (03/15/18 2:33 AM) 182.88 cm (03/14/18 8:36 PM) Height 98.3 DegF (03/19/18 11:25 AM) 97.5 DegF (03/19/18 7:16 AM) 98.1 DegF (03/19/18 5:05 AM) Temperature Oral [96.4-99.1 DegF] 153/105 mmHg *HI* (03/19/18 11:25 AM) 103/60 mmHg (03/19/18 7:16 AM) 118/73 mmHg (03/19/18 5:05 AM) Blood Pressure [90-140/60-90 mmHg] 18 BRMIN (03/19/18 11:25 AM) 18 BRMIN (03/19/18 7:16 AM) 20 BRMIN (03/19/18 5:05 AM) Respiratory Rate [14-20 BRMIN] 92 bpm (03/19/18 11:25 AM) 92 bpm (03/19/18 7:16 AM) 96 bpm (03/19/18 5:05 AM) Peripheral Pulse Rate [60-100 bpm] 80 kg (03/15/18 2:33 AM) 81.818 kg (03/14/18 8:36 PM) Weight 23.92 m2 (03/15/18 2:33 AM) 24.46 m2 (03/14/18 8:36 PM) Body Mass Index Problem List Condition Effective Dates Status Health Status Informmalik Soto(Confir 05/22/18 Active med)1, 2, 3, 4, 5, [...] PO, Drug form: TAB, Q4H, Dosing Weight 81.818, kg, PRN Maxwell n 1-3/Temp > 100.4 F, Start date: 03/14/18 23:53:00 CDT, Duration: 30 day, Stop date: 04/13/18 23:52:00 CDT Notes: Do not exceed 4 gm/day. (Same as: Tylenol) Start Date: 03/14/18 Stop Date: 03/19/18 Status: Discontinued albuterol 0.083% inhalation solution 2.49 mg, 3 mL, Route: NEB, Drug form: SOLN, Q4H, Dosing Weight 80, kg, PRN Short ness of breath, Start date: 03/18/18 16:46:00 CDT, Duration: 30 day, Stop date: 04/17/18 16:45:00 CDT Notes: SEE RT DOCUMENTATION (Same as: Proventil) Start Date: 03/18/18 Stop Date: 03/19/18 Status: Discontinued amitriptyline 50 mg, 2 tab, Route: PO, Drug form: TAB, Bedtime, Dosing Weight 81.818, kg, Star t date: 03/15/18 21:00:00 CDT, Duration: 30 day, Stop date: 04/13/18 21:00:00 CD T Notes: (Same as: Elavil) Start Date: 03/15/18 Stop Date: 03/19/18 Status: Discontinued ascorbic acid 1,000 mg = 2 tab, PO, Daily, 0 Refill(s) Start Date: 03/19/18 Stop Date: 06/30/18 Status: Discontinued ascorbic acid 1,000 mg, 2 tab, Route: PO, Drug form: TAB, Daily, Dosing Weight 80, kg, Start d ate: 03/17/18 9:00:00 CDT, Duration: 14 day, Stop date: 03/30/18 9:00:00 CDT Notes: (Same as: Vitamin C) Start Date: 03/17/18 Stop Date: 03/19/18 Status: Discontinued baclofen 10 mg, 1 tab, Route: PO, Drug form: TAB, TID, Dosing Weight 80, kg, Start date: 03/18/18 9:00:00 CDT, Duration: 30 day, Stop date: 04/16/18 17:00:00 CDT Notes: (Same As: Lioresal) Start Date: 03/18/18 Stop Date: 03/19/18 Status: Discontinued dexamethasone (ANES) Route: IV, Drug form: INJ, ONCE, Stop date: 03/17/18 19:01:00 CDT Start Date: 03/17/18 Stop Date: 03/17/18 Status: Completed Dilaudid 1 mg, 0.5 mL, Route: IVP, Drug form: INJ, Q3H, Dosing Weight 81.818, kg, PRN Maxwell n Score 7-10, Start date: 03/15/18 0:31:00 CDT, Duration: 30 day, Stop date: 06/21 0:30:00 CDT Notes: Same as Dilaudid Start Date: 03/15/18 Stop Date: 03/19/18 Status: Discontinued Dilaudid 1 mg, 0.5 mL, Route: IVP, Drug form: INJ, ONCE, Dosing Weight 80, kg, Priority: STAT, Start date: 03/19/18 17:37:00 CDT, Stop date: 03/19/18 17:37:00 CDT Notes: Same as Dilaudid Start Date: 03/19/18 Stop Date: 03/19/18 Status: Completed docusate 100 mg, 1 cap, Route: PO, Drug form: CAP, BID, Dosing Weight 81.818, kg, Start d ate: 03/15/18 9:00:00 CDT, Duration: 30 day, Stop date: 04/13/18 17:00:00 CDT Notes: (Same as: Colace) (Do Not Crush) Start Date: 03/15/18 Stop Date: 03/19/18 Status: Discontinued enoxaparin 40 mg, 0.4 mL, Route: SUB-Q, Drug form: INJ, Daily, Dosing Weight 81.818, kg, Fo r CrCl >= 30 mL/min, Start date: 03/15/18 9:00:00 CDT, Duration: 30 day, Stop date: 04/13/18 9:00:00 CDT Notes: (Same as: Lovenox) Start Date: 03/15/18 Stop Date: 03/19/18 Status: Discontinued enoxaparin 40 mg = 0.4 mL, SUB-Q, Daily, 0 Refill(s) Start Date: 03/19/18 Stop Date: 06/01/18 Status: Discontinued fentaNYL (ANES) Route: IV, Drug form: INJ, ONCE, Stop date: 03/17/18 18:46:00 CDT Start Date: 03/17/18 Stop Date: 03/17/18 Status: Completed hydromorphone 4 mg oral tablet 4 mg = 1 tab, PO, Q6H, PRN Pain Score 7-10, X 7 day, # 28 tab, 0 Refill(s), othe r Start Date: 03/19/18 Stop Date: 03/26/18 Status: Completed Lyrica 75 mg, 1 cap, Route: PO, Drug form: CAP, Q12H, Dosing Weight 80, kg, Start date: 03/15/18 22:48:00 CDT, Duration: 30 day, Stop date: 04/14/18 21:00:00 CDT Notes: (Same as: Lyrica) Start Date: 03/15/18 Stop Date: 03/19/18 Status: Discontinued meropenem + Sodium Chloride 0.9% IV 100 mL 1 gm, Route: IVPB, ONCE, Dosing Weight 81.818, kg, Priority: STAT, Start date: 0 03/14/18 20:55:00 CDT, Stop date: 03/14/18 20:55:00 CDT, ABX Indication: Other (s pecify in Comments) Notes: (Same as: Merrem) . MEDICATION WASTE Product Size: 1000 mgProduc t Wasted: ___ mg Start Date: 03/14/18 Stop Date: 03/14/18 Status: Completed meropenem + Sodium Chloride 0.9% IV 100 mL 500 mg, Route: IVPB, [id number], Dosing Weight 81.818, kg, CrCL > = 50ml/min, Extended infusion, infuse over 3 hours, Start date: 03/15/18 3:00:00 CDT, Duration: 7 day, Stop date: 03/21/18 21:00:00 CDT, ABX Indication: Other (specify in Comments) Notes: Same as Merrem MEDICATION WASTE Product Size: 500 mgProduct Wast ed: ___ mg Start Date: 03/15/18 Stop Date: 03/19/18 Status: Discontinued meropenem 500 mg intravenous injection 500 mg, IV, Q6H, X 40 day, # 40 vial, 0 Refill(s), other Start Date: 03/19/18 Stop Date: 04/28/18 Status: Completed nicotine 21 mg, 1 patch, Route: TOP, Drug form: ERFILM, Daily, Dosing Weight 81.818, kg, Priority: NOW, Start date: 03/15/18 1:09:00 CDT, Duration: 30 day, Stop date: 9:00:00 CDT Notes: (Same as: Habitrol)"Remove old patch before application of new patch"WAST E: F/P - P Waste Black; E - P Waste Black Start Date: 03/15/18 Stop Date: 03/19/18 Status: Discontinued [place] 5/325 oral tablet 1 tab, Route: PO, Drug Form: TAB, Dosing Weight 80, kg, Q6H, PRN Pain Score 6-10 , Start date: 03/18/18 16:46:00 CDT, Duration: 30 day, Stop date: 04/17/18 16:45 :00 CDT Notes: (Same as: [place] 325/5) Do not exceed 4gm/day of acetaminophen. Start Date: 03/18/18 Stop Date: 03/19/18 Status: Discontinued normal saline 0.9% IV 1,000 mL 1,000 mL, Rate: 100 ml/hr, Infuse over: 10 hr, Route: IV, Dosing Weight 81.818 k g, Total Volume: 1,000, Start date: 03/14/18 23:53:00 CDT, Duration: 30 day, Sto p date: 04/13/18 23:52:00 CDT, 2.05, m2 Start Date: 03/14/18 Stop Date: 03/19/18 Status: Discontinued ondansetron 4 mg, 2 mL, Route: IVP, Drug form: INJ, Q6H, Dosing Weight 81.818, kg, PRN Nause a & Vomiting, Start date: 03/14/18 23:53:00 CDT, Duration: 30 day, Stop date: 04/13/18 23:52:00 CDT Notes: (Same as: Klaus) MEDICATION WASTE Product Size: 4 mgProduct Was reinaldo: ___ mg Start Date: 03/14/18 Stop Date: 03/19/18 Status: Discontinued ondansetron (ANES) Route: IV, Drug form: INJ, ONCE, Stop date: 03/17/18 18:46:00 CDT Start Date: 03/17/18 Stop Date: 03/17/18 Status: Completed oxybutynin 10 mg, 2 tab, Route: PO, Drug form: TAB, BID, Dosing Weight 80, kg, Start date: 03/15/18 22:48:00 CDT, Duration: 30 day, Stop date: 04/14/18 17:00:00 CDT Notes: Same as: Ditropan) Start Date: 03/15/18 Stop Date: 03/19/18 Status: Discontinued pantoprazole 40 mg, 1 tab, Route: PO, Drug form: ECTAB, Before Dinner, Dosing Weight 80, kg, Start date: 03/18/18 16:30:00 CDT, Duration: 30 day, Stop date: 04/16/18 16:30:0 0 CDT Notes: Tablet should not be chewed or crushed.(Same as: Protonix) Start Date: 03/18/18 Stop Date: 03/19/18 Status: Discontinued propofol (ANES) Route: IV, Drug form: INJ, ONCE, Stop date: 03/17/18 18:46:00 CDT Start Date: 03/17/18 Stop Date: 03/17/18 Status: Completed remove patch 1 patch, Route: TOP, Drug form: ERFILM, Daily, Start date: 03/15/18 9:00:00 CDT, Duration: 30 day, Stop date: 04/13/18 9:00:00 CDT Notes: Remove old patch before application of new patch.WASTE: F/P - P Waste Medhat ck; E - P Waste Black Start Date: 03/15/18 Stop Date: 03/19/18 Status: Discontinued rocuronium (ANES) Route: IV, Drug form: INJ, ONCE, Stop date: 03/17/18 18:46:00 CDT Start Date: 03/17/18 Stop Date: 03/17/18 Status: Completed Saline Flush 0.9% 10 mL, Route: IVP, Drug Form: INJ, Dosing Weight 81.818, kg, PRN, PRN Line Flush , Start date: 03/14/18 20:55:00 CDT, Duration: 30 day, Stop date: 04/13/18 20:54 :00 CDT Notes: Same as: BD Posiflush Sterile Start Date: 03/14/18 Stop Date: 03/19/18 Status: Discontinued Sodium Chloride 0.9% (Bolus) IV 2,000 mL, 2,000 ml/hr, Infuse Over: 1 hr, Route: IV, 2,000, Drug form: INJ, ONCE , Priority: STAT, Dosing Weight 81.818 kg, Start date: 03/14/18 20:55:00 CDT, St op date: 03/14/18 20:55:00 CDT Start Date: 03/14/18 Stop Date: 03/14/18 Status: Completed Sodium Chloride 0.9% (Bolus) IV 1,000 mL, 1000 ml/hr, Infuse Over: 1 hr, Route: IV, 1,000, Drug form: INJ, ONCE, Priority: STAT, Dosing Weight 81.818 kg, Start date: 03/14/18 23:44:00 CDT, Stop date: 03/14/18 23:44:00 CDT Start Date: 03/14/18 Stop Date: 03/15/18 Status: Completed tizanidine 4 mg, 1 tab, Route: PO, Drug form: TAB, Q6H, Dosing Weight 81.818, kg, Start river e: 03/15/18 6:00:00 CDT, Duration: 30 day, Stop date: 04/14/18 0:00:00 CDT Notes: (Same As: Zanaflex) Start Date: 03/15/18 Stop Date: 03/19/18 Status: Discontinued Valium 10 mg, 2 mL, Route: IVP, Drug form: INJ, ONCE, Dosing Weight 80, kg, Start date: 03/19/18 4:31:00 CDT, Stop date: 03/19/18 4:31:00 CDT Notes: (Same as: Valium)WASTE: F/P - Black; E - White/Blue Start Date: 03/19/18 Stop Date: 03/19/18 Status: Completed vancomycin + Sodium Chloride 0.9% IV 250 mL 1,500 mg, Route: IVPB, [id number], Dosing Weight 81.818, kg, Start date: 03/15/18 2 2:00:00 CDT, Duration: 7 day, Stop date: 03/22/18 10:00:00 CDT, ABX Indication: Other (specify in Comments) Notes: TIME CRITICAL MEDICATION(Same As: Vancocin)Infusion rate< 1000 mg: infuse over 1 [id number] - 1500 mg: infuse over 1.5 [id number] - 2000 mg: infuse over 2 hours> 2001 mg: infuse over 2.5 hoursFor adult patients only: Round to nearest 250 mg per Medical Staff approval MEDICATION WASTE Product Size: 1000 mgProduct Wasted: ___ mg Start Date: 03/15/18 Stop Date: 03/17/18 Status: Discontinued vancomycin + Sodium Chloride 0.9% IV 250 mL 1,000 mg, Route: IVPB, ONCE, Dosing Weight 81.818, kg, Time Critical Medication, Priority: STAT, Start date: 03/14/18 20:55:00 CDT, Stop date: 03/14/18 20:55:00 CDT, ABX Indication: Other (specify in Comments) Notes: TIME CRITICAL MEDICATION(Same As: Vancocin)Infusion rate< 1000 mg: infuse over 1 [id number] - 1500 mg: infuse over 1.5 [id number] - 2000 mg: infuse over 2 hours> 2001 mg: infuse over 2.5 hoursFor adult patients only: Round to nearest 250 mg per Medical Staff approval MEDICATION WASTE Product Size: 1000 mgProduct Wasted: ___ mg Start Date: 03/14/18 Stop Date: 03/14/18 Status: Completed vancomycin + Sodium Chloride 0.9% IV 500 mL 2,000 mg, Route: IVPB, ONCE, Start date: 03/15/18 1:00:00 CDT, Stop date: 1:00:00 CDT, ABX Indication: Other (specify in Comments) Notes: TIME CRITICAL MEDICATION(Same As: Vancocin)Infusion rate< 1000 mg: infuse over 1 [id number] - 1500 mg: infuse over 1.5 [id number] - 2000 mg: infuse over 2 hours> 2001 mg: infuse over 2.5 hoursFor adult patients only: Round to nearest 250 mg per Medical Staff approval MEDICATION WASTE Product Size: 1000 mgProduct Wasted: ___ mg Start Date: 03/15/18 Stop Date: 03/15/18 Status: Completed Xanax 2 mg oral tablet 2 mg, 2 tab, Route: PO, Drug form: TAB, BID, Dosing Weight 80, kg, PRN Anxiety, Start date: 03/15/18 22:47:00 CDT, Duration: 30 day, Stop date: 04/14/18 22:46:0 0 CDT Notes: With food or milk(Same as: Xanax) Start Date: 03/15/18 Stop Date: 03/19/18 Status: Discontinued zinc sulfate 220 mg, 1 cap, Route: PO, Drug form: CAP, Daily, Dosing Weight 80, kg, Start river e: 03/17/18 9:00:00 CDT, Duration: 14 day, Stop date: 03/30/18 9:00:00 CDT Notes: (Zinc sulfate capsule) - 220 mg Zinc sulfate = 50 mg elemental zinc Same as Zinc Sulfate Start Date: 03/17/18 Stop Date: 03/19/18 Status: Discontinued zinc sulfate 220 mg, Route: PO, Drug form: CAP, Daily, Dosing Weight 80, kg, Start date: 03/04 11/19 9:00:00 CDT, Duration: 30 day, Stop date: 04/15/18 9:00:00 CDT Start Date: 03/17/18 Stop Date: 03/16/18 Status: Canceled Results ELECTROLYTES 1 2 3 Most recent to oldest [Reference Range]: 142 mEq/L (03/19/18 4:11 AM) 141 mEq/L (03/18/18 3:13 AM) 138 mEq/L (03/16/18 3:53 AM) Sodium Lvl [135-145 mEq/L] 4.0 mEq/L (03/19/18 4:11 AM) 5.0 mEq/L (03/18/18 3:13 AM) 4.0 mEq/L (03/16/18 3:53 AM) Potassium Lvl [3.5-5.1 mEq/L] 108 mEq/L (03/19/18 4:11 AM) 109 mEq/L (03/18/18 3:13 AM) 106 mEq/L (03/16/18 3:53 AM) Chloride Lvl [95-109 mEq/L] 25 mEq/L (03/19/18 4:11 AM) 25 mEq/L (03/18/18 3:13 AM) 25 mEq/L (03/16/18 3:53 AM) CO2 [24-32 mEq/L] 13.0 mEq/L (03/19/18 4:11 AM) 12.0 mEq/L (03/18/18 3:13 AM) 11.0 mEq/L (03/16/18 3:53 AM) AGAP [10.0-20.0 mEq/L] CHEM PANEL 1 2 3 Most recent to oldest [Reference Range]: 0.96 mg/dL (03/19/18 4:11 AM) 0.98 mg/dL (03/18/18 3:13 AM) 1.23 mg/dL (03/16/18 3:53 AM) Creatinine Lvl [0.50-1.40 mg/dL] 103 mL/min/1.73m2 1 *NA* (03/19/18 4:11 AM) 100 mL/min/1.73m2 2 *NA* (03/18/18 3:13 AM) 77 mL/min/1.73m2 3 *NA* (03/16/18 3:53 AM) eGFR 15 mg/dL (03/19/18 4:11 AM) 15 mg/dL (03/18/18 3:13 AM) 15 mg/dL (03/16/18 3:53 AM) BUN [7-22 mg/dL] 15 (03/18/18 3:13 AM) 12 (03/16/18 3:53 AM) 15 (03/14/18 9:25 PM) B/C Ratio [6-25] 85 mg/dL (03/19/18 4:11 AM) 170 mg/dL *HI* (03/18/18 3:13 AM) 80 mg/dL (03/16/18 3:53 AM) Glucose Lvl [70-99 mg/dL] 7.5 g/dL (03/18/18 3:13 AM) 7.5 g/dL (03/16/18 3:53 AM) 9.2 g/dL *HI* (03/14/18 9:25 PM) Total Protein [6.4-8.4 g/dL] 2.5 g/dL *LOW* (03/18/18 3:13 AM) 2.5 g/dL *LOW* (03/16/18 3:53 AM) 3.2 g/dL *LOW* (03/14/18 9:25 PM) Albumin Lvl [3.5-5.0 g/dL] 5.0 g/dL *HI* (03/18/18 3:13 AM) 5.0 g/dL *HI* (03/16/18 3:53 AM) 6.0 g/dL *HI* (03/14/18 9:25 PM) Globulin [2.7-4.2 g/dL] 0.5 *LOW* (03/18/18 3:13 AM) 0.5 *LOW* (03/16/18 3:53 AM) 0.5 *LOW* (03/14/18 9:25 PM) A/G Ratio [0.7-1.6] 8.6 mg/dL (03/19/18 4:11 AM) 8.6 mg/dL (03/18/18 3:13 AM) 8.6 mg/dL (03/16/18 3:53 AM) Calcium Lvl [8.5-10.5 mg/dL] 36 unit/L (03/18/18 3:13 AM) 31 unit/L (03/16/18 3:53 AM) 34 unit/L (03/14/18 9:25 PM) ALT [0-65 unit/L] 19 unit/L (03/18/18 3:13 AM) 23 unit/L (03/16/18 3:53 AM) 21 unit/L (03/14/18 9:25 PM) AST [0-37 unit/L] 132 unit/L (03/18/18 3:13 AM) 129 unit/L (03/16/18 3:53 AM) 162 unit/L *HI* (03/14/18 9:25 PM) Alk Phos [39-136 unit/L] 0.4 mg/dL (03/18/18 3:13 AM) 0.3 mg/dL (03/16/18 3:53 AM) 0.6 mg/dL (03/14/18 9:25 PM) Bili Total [0.2-1.3 mg/dL] 1.0 mMol/L (03/14/18 9:25 PM) Lactic Acid Lvl [0.5-2.2 mMol/L] <0.05 ng/mL (03/14/18 9:25 PM) Procalcitonin Lvl [0.00-0.10 ng/mL] 1Result Comment: [...] 3 Most recent to oldest [Reference Range]: 68 unit/L (03/14/18 9:25 PM) Total CK [12-191 unit/L] <0.02 ng/mL (03/14/18 9:25 PM) Troponin-I [0.00-0.40 ng/mL] DRUG SCREEN 1 2 3 Most recent to oldest [Reference Range]: Negative *NA* (03/14/18 9:33 PM) U Amph Scr [Negative] Negative *NA* (03/14/18 9:33 PM) U Chelsie Scr [Negative] Positive *ABN* (03/14/18 9:33 PM) U Benzodiaz Scr [Negative] Positive *ABN* (03/14/18 9:33 PM) U Cannab Scr [Negative] Negative *NA* (03/14/18 9:33 PM) U Cocaine Scr [Negative] Positive *ABN* (03/14/18 9:33 PM) U Opiate Scr [Negative] Negative *NA* (03/14/18 9:33 PM) U Phencyclidine Scr [Negative] See Note (03/14/18 9:33 PM) UDS Note TOXICOLOGY 1 2 3 Most recent to oldest [Reference Range]: 2300 *NA* (03/17/18 9:58 PM) 1100 *NA* (03/17/18 11:18 AM) Vanco Tr TND 31.3 ug/ml *NA* (03/17/18 9:58 PM) 55.5 ug/ml *NA* (03/17/18 11:18 AM) Vanco Tr <.003 % *NA* (03/15/18 3:13 AM) Etoh (%) <3 mg/dL *NA* (03/15/18 3:13 AM) Ethanol Lvl URINE AND STOOL 1 2 3 Most recent to oldest [Reference Range]: Marked *ABN* (03/14/18 9:33 PM) UA Turbidity [Clear] Sasha *ABN* (03/14/18 9:33 PM) UA Color [Yellow] 7.0 (03/14/18 9:33 PM) UA pH [5.0-8.0] 1.014 (03/14/18 9:33 PM) UA Spec Grav [<=1.030] Negative mg/dL *NA* (03/14/18 9:33 PM) UA Glucose [Negative mg/dL] Negative (03/14/18 9:33 PM) UA Blood [Negative] Negative *NA* (03/14/18 9:33 PM) UA Ketones 100 mg/dL *ABN* (03/14/18 9:33 PM) UA Protein [Negative mg/dL] <=1.0 mg/dL *NA* (03/14/18 9:33 PM) UA Urobilinogen [0.1-1.0 mg/dL] Negative *NA* (03/14/18 9:33 PM) UA Bili [Negative] Large *ABN* (03/14/18 9:33 PM) UA Leuk Est [Negative] Positive *ABN* (03/14/18 9:33 PM) UA Nitrite [Negative] 45 /HPF *HI* (03/14/18 9:33 PM) UA WBC [0-5 /HPF] 8 /HPF *HI* (03/14/18 9:33 PM) UA RBC [0-2 /HPF] Many /HPF *ABN* (03/14/18 9:33 PM) UA Bacteria [None Seen /HPF] None Seen *NA* (03/14/18 9:33 PM) UA Sq Epi 6 /LPF *HI* (03/14/18 9:33 PM) UA Hyal Cast [0-2 /LPF] Moderate /HPF *ABN* (03/14/18 9:33 PM) UA Amorph Michelle [None Seen /HPF] Occasional /HPF *NA* (03/14/18 9:33 PM) UA Tr Phos Michelle [None Seen /HPF] Few /LPF *NA* (03/14/18 9:33 PM) UA Mucus [None Seen /LPF] IMMUNOLOGY 1 2 3 Most recent to oldest [Reference Range]: 77.5 mg/L *HI* (03/16/18 3:53 AM) CRP [<=2.9 mg/L] HEMATOLOGY 1 2 3 Most recent to oldest [Reference Range]: 8.8 K/CMM (03/19/18 4:11 AM) 7.0 K/CMM (03/18/18 3:13 AM) 7.3 K/CMM (03/16/18 3:53 AM) WBC [3.7-10.4 K/CMM] 3.69 M/CMM *LOW* (03/19/18 4:11 AM) 3.79 M/CMM *LOW* (03/18/18 3:13 AM) 3.54 M/CMM *LOW* (03/16/18 3:53 AM) RBC [4.70-6.10 M/CMM] 8.8 g/dL *LOW* (03/19/18 4:11 AM) 8.8 g/dL *LOW* (03/18/18 3:13 AM) 8.1 g/dL *LOW* (03/16/18 3:53 AM) Hgb [14.0-18.0 g/dL] 27.3 % *LOW* (03/19/18 4:11 AM) 27.7 % *LOW* (03/18/18 3:13 AM) 26.4 % *LOW* (03/16/18 3:53 AM) Hct [42.0-54.0 %] 74.1 fL *LOW* (03/19/18 4:11 AM) 73.0 fL *LOW* (03/18/18 3:13 AM) 74.5 fL *LOW* (03/16/18 3:53 AM) MCV [80.0-94.0 fL] 23.8 pg *LOW* (03/19/18 4:11 AM) 23.3 pg *LOW* (03/18/18 3:13 AM) 23.0 pg *LOW* (03/16/18 3:53 AM) MCH [27.0-31.0 pg] 32.2 g/dL (03/19/18 4:11 AM) 31.9 g/dL *LOW* (03/18/18 3:13 AM) 30.8 g/dL *LOW* (03/16/18 3:53 AM) MCHC [32.0-36.0 g/dL] 19.2 % *HI* (03/19/18 4:11 AM) 18.8 % *HI* (03/18/18 3:13 AM) 19.0 % *HI* (03/16/18 3:53 AM) RDW [11.5-14.5 %] 7.9 fL (03/19/18 4:11 AM) 7.6 fL (03/18/18 3:13 AM) 8.0 fL (03/16/18 3:53 AM) MPV [7.4-10.4 fL] 433 K/CMM (03/19/18 4:11 AM) 450 K/CMM (03/18/18 3:13 AM) 382 K/CMM (03/16/18 3:53 AM) Platelet [133-450 K/CMM] 59.2 % (03/19/18 4:11 AM) 86.9 % *HI* (03/18/18 3:13 AM) 59.4 % (03/16/18 3:53 AM) Segs [45.0-75.0 %] 32.4 % (03/19/18 4:11 AM) 10.7 % *LOW* (03/18/18 3:13 AM) 28.6 % (03/16/18 3:53 AM) Lymphocytes [20.0-40.0 %] 6.9 % (03/19/18 4:11 AM) 2.3 % (03/18/18 3:13 AM) 6.8 % (03/16/18 3:53 AM) Monocytes [2.0-12.0 %] 1.0 % (03/19/18 4:11 AM) 4.2 % *HI* (03/16/18 3:53 AM) 3.2 % (03/15/18 3:13 AM) Eosinophils [0.0-4.0 %] 0.5 % (03/19/18 4:11 AM) 0.1 % (03/18/18 3:13 AM) 1.0 % (03/16/18 3:53 AM) Basophils [0.0-1.0 %] 5.2 K/CMM (03/19/18 4:11 AM) 6.1 K/CMM (03/18/18 3:13 AM) 4.3 K/CMM (03/16/18 3:53 AM) Neutrophils # [1.5-8.1 K/CMM] 2.8 K/CMM (03/19/18 4:11 AM) 0.8 K/CMM *LOW* (03/18/18 3:13 AM) 2.1 K/CMM (03/16/18 3:53 AM) Lymphocytes # [1.0-5.5 K/CMM] 0.6 K/CMM (03/19/18 4:11 AM) 0.2 K/CMM (03/18/18 3:13 AM) 0.5 K/CMM (03/16/18 3:53 AM) Monocytes # [0.0-0.8 K/CMM] 0.1 K/CMM (03/19/18 4:11 AM) 0.3 K/CMM (03/16/18 3:53 AM) 0.3 K/CMM (03/15/18 3:13 AM) Eosinophils # [0.0-0.5 K/CMM] 0.1 K/CMM (03/16/18 3:53 AM) 0.1 K/CMM (03/15/18 3:13 AM) 0.1 K/CMM (03/14/18 9:25 PM) Basophils # [0.0-0.2 K/CMM] Normal (03/14/18 9:25 PM) RBC Morph slight *NA* (03/14/18 9:25 PM) Polychrom 1+ (03/14/18 9:25 PM) Hypochrom [None Seen] 1+ *ABN* (03/19/18 4:11 AM) 1+ *ABN* (03/18/18 3:13 AM) 1+ *ABN* (03/16/18 3:53 AM) Microcyte [None Seen] Normal (03/14/18 9:25 PM) Plt Morph 13.9 seconds (03/14/18 10:43 PM) PT [12.0-14.7 seconds] 1.07 (03/14/18 10:43 PM) INR [0.85-1.17] 34.7 seconds (03/14/18 10:43 PM) PTT [22.9-35.8 seconds] Microbiology Reports TEST: Culture: Wound/Abscess w/Gram Stain STATUS: Modified/Amended/Cor BODY SITE: Left Hip SOURCE: Wound, Non Surgical COLLECTED DATE/TIME: 03/16/18 2:47 PM FINAL REPORT Many Acinetobacter baumannii , Multi-drug Resistant Organism Rare Alpha Streptococcus, Not Enterococcus STAIN REPORT Moderate WBC's No Squamous Epithelial Cells; No Organisms Seen ORGANISM:Acinetobacter baumannii TEST: Culture: Urine STATUS: Modified/Amended/Cor BODY SITE: SOURCE: Urine, Clean Catch COLLECTED DATE/TIME: 03/14/18 9:30 PM FINAL REPORT >100,000 CFU/mL Providencia stuartii , Multi-drug Resistant Organism >100,000 CFU/mL Klebsiella pneumoniae ssp pneumoniae , Multi-drug Resistant Organism ORGANISM:Providencia stuartii ORGANISM:Klebsiella pneumoniae ssp pneumoniae Immunizations Given and Recorded Vaccine Date Status Refusal Reason hepatitis B adult vaccine 02/28/17 Given pneumococcal 13-valent vaccine 08/13/16 Given influenza virus vaccine, inactivated 05/28/ G [...] ago Assessment and Plan Extracted from: Title: Hospitalist progress Note Author: Terese Gallego Date: 03/19/18 Impression and Plan This is [...] moment. Disposition: Patient has been approved at [facility]. He will be discharged to [facility] today to continue IV antibiotics with meropenem. ID Dr. Jie Kennedy will also be following him at [place] and will make adjustments to his antibiotics as needed. He is pending his urine culture results, this will be followed up by ID who has also recommended that patient can be discharged over to [place] today Extracted from: Title: General Admission H&P * Author: Jessie King Date: 03/14/18 Impression and Plan 1. Probable [...] psychiatric consultation ordered. 5. Tobacco dependence. Patient counselor camp ed over 3 minutes about smoking cessation. Nicotine patch ordered. 6. Chronic stable anemia with hemoglobi n of 9.4 noted. Follow-up CBC ordered. 7. DVT prophylaxis with Lovenox ordered . 8. Patient's CODE STATUS is full code. Further management will depend on clinical course.
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
--- OUTSIDE RECORDS SUMMARY | 2020-03-18 10:18 | XMS REPORT | Summary of Care ---
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 10/22/17 Status: Discontinued pantoprazole 40 mg oral enteric coated tablet 40 mg = 1 tab, PO, Before Dinner, # 30 tab, 0 Refill(s), Pharmacy: [facility] [id number] Start Date: 10/22/17 Stop Date: 11/21/17 Status: Ordered PlasmaLyte A PH-7.4 1,000 mL 1,000 mL, Rate: 1,000 ml/hr, Infuse over: 1 hr, Route: IV, Dosing Weight 72.727 kg, Total Volume: 1,000, Start date: 09/10/17 0:34:00 ROLL CLEANER, Duration: 30 day, Sto p date: 10/10/17 0:33:00 ROLL CLEANER, 1.93, m2 Notes: (Same as: Isolyte S PH 7.4) Start Date: 09/10/17 Stop Date: 09/10/17 Status: Discontinued pregabalin 225 mg, 3 cap, Route: PO, Drug form: CAP, Q12H, Dosing Weight 72.727, kg, Start date: 09/10/17 9:00:00 ROLL CLEANER, Duration: 30 day, Stop date: 11/08/17 21:00:00 CDT Notes: (Same as: Lyrica) Start Date: 09/10/17 Stop Date: 10/22/17 Status: Discontinued pregabalin 75 mg oral capsule 225 mg = 3 cap, PO, Q12H, 0 Refill(s) Start Date: 10/22/17 Status: Ordered remove patch 1 patch, Route: TOP, Q24H, Drug form: ERFILM, Start date: 09/10/17 18:00:00 ROLL CLEANER, Duration: 30 day, Stop date: 11/08/17 18:00:00 CDT Notes: Remove patch 12 hours after application each day. Start Date: 09/10/17 Stop Date: 10/22/17 Status: Discontinued Saline Flush 0.9% 10 mL, Route: IVP, Drug Form: INJ, Dosing Weight 72.727, kg, PRN, PRN Line Flush , Start date: 09/09/17 22:48:00 ROLL CLEANER, Duration: 30 day, Stop date: 11/08/17 23:47 :00 CDT Notes: (Same as: BD Posiflush) Start Date: 09/09/17 Stop Date: 10/22/17 Status: Discontinued Santyl 1 appl, Route: TOP, Daily, Drug form: OINT, Start date: 10/06/17 13:30:00 ROLL CLEANER, D uration: 30 day, Stop date: 11/05/17 9:00:00 CDT Notes: (Same As: Santyl) Start Date: 10/06/17 Stop Date: 10/22/17 Status: Discontinued Santyl 250 units/g topical ointment 1 appl, TOP, Daily, TO RIGHT FOOT NEEDED FOR WOUND CARE, 0 Refill(s) Start Date: 10/14/17 Status: Ordered senna 8.6 mg oral tablet 8.6 mg, 1 tab, Route: PO, Drug Form: TAB, Dosing Weight 72.727, kg, BID, PRN Con stipation, Start date: 09/10/17 4:39:00 ROLL CLEANER, Stop date: 11/09/17 4:38:00 CDT Notes: (Same as: Senokot) Start Date: 09/10/17 Stop Date: 10/22/17 Status: Discontinued Senna 8.6 mg oral tablet 8.6 mg = 1 tab, PO, BID, 0 Refill(s) Start Date: 10/14/17 Status: Ordered Sodium Chloride 0.9% (titrate) 250 mL 250 mL, Rate: To prime line and flush remaining blood products., Dosing Weight 7 2.727, kg, Route: IV, Total Volume: 250, Start Date: 09/19/17 4:12:00 ROLL CLEANER, Durat ion: 30 day, Stop date: 10/19/17 4:11:00 CDT, Replace Every: 24 hr Start Date: 09/19/17 Stop Date: 10/19/17 Status: Completed tizanidine 4 mg, 1 tab, Route: PO, Drug form: TAB, Q6H, Dosing Weight 72.727, kg, Start river e: 09/16/17 17:00:00 ROLL CLEANER, Duration: 30 day, Stop date: 11/15/17 15:00:00 CDT Notes: (Same As: Zanaflex) Start Date: 09/16/17 Stop Date: 10/22/17 Status: Discontinued tizanidine 4 mg oral tablet 4 mg = 1 tab, PO, Q6H, 0 Refill(s) Start Date: 10/22/17 Status: Ordered tizanidine 4 mg oral tablet 4 mg = 1 tab, PO, TID, 0 Refill(s) Start Date: 10/14/17 Stop Date: 10/22/17 Status: Discontinued Tylenol 650 mg, 2 tab, Route: PO, Drug form: TAB, ONCE, Dosing Weight 72.727, kg, Priori ty: STAT, Start date: 09/09/17 22:30:00 ROLL CLEANER, Stop date: 09/09/17 22:30:00 ROLL CLEANER Notes: Do not exceed 4 gm/day. (Same as: Tylenol) Start Date: 09/09/17 Stop Date: 09/09/17 Status: Completed Tylenol 325 mg, 1 tab, Route: PO, Drug form: TAB, QID, Dosing Weight 72.727, kg, Start d ate: 09/15/17 13:00:00 ROLL CLEANER, Duration: 30 day, Stop date: 10/15/17 9:00:00 CDT Notes: Do not exceed 4 gm/day. (Same as: Tylenol) Start Date: 09/15/17 Stop Date: 09/28/17 Status: Discontinued Tylenol 325 mg oral tablet 650 mg = 2 tab, PO, Q4H, 0 Refill(s) Start Date: 10/14/17 Stop Date: 10/22/17 Status: Discontinued Unasyn 3 gm, Route: IVPB, Drug form: PDR/INJ, [id number], Dosing Weight 72.727, kg, Start d ate: 09/14/17 8:00:00 ROLL CLEANER, Duration: 30 day, Stop date: 10/14/17 2:00:00 CDT Start Date: 09/14/17 Stop Date: 09/14/17 Status: Discontinued vancomycin 750 mg, Route: IVPB, Drug form: INJ, [id number], Dosing Weight 72.727, kg, Start da te: 09/14/17 8:00:00 ROLL CLEANER, Duration: 14 day, Stop date: 09/27/17 20:00:00 ROLL CLEANER, AB X Indication: Bone/Joint Infection Start Date: 09/14/17 Stop Date: 09/14/17 Status: Deleted vancomycin + Sodium Chloride 0.9% IV 100 mL 250 mg, Route: IVPB, [id number], Start date: 09/30/17 13:00:00 ROLL CLEANER, Duration: 30 da y, Stop date: 10/30/17 1:00:00 CDT, ABX Indication: Bone/Joint Infection Notes: TIME CRITICAL MEDICATION(Same As: Vancocin)For adult patients only: Round to nearest 250 mg per Medical Staff approval Start Date: 09/30/17 Stop Date: 10/03/17 Status: Discontinued vancomycin + Sodium Chloride 0.9% IV 100 mL 500 mg, Route: IVPB, [id number], Dosing Weight 72.727, kg, Start date: 10/03/17 12: 00:00 ROLL CLEANER, Stop date: 10/22/17 1:00:00 CDT, ABX Indication: Other (specify in Co mments) Notes: TIME CRITICAL MEDICATION(Same As: Vancocin)For adult patients only: Round to nearest 250 mg per Medical Staff approval Start Date: 10/03/17 Stop Date: 10/13/17 Status: Discontinued vancomycin + Sodium Chloride 0.9% IV 250 mL 1,000 mg, Route: IVPB, Drug form: INJ, [id number], Start date: 10/14/17 5:00:00 CDT , Stop date: 10/22/17 6:00:00 CDT, ABX Indication: Bone/Joint Infection Start Date: 10/14/17 Stop Date: 10/22/17 Status: Completed vancomycin + Sodium Chloride 0.9% IV 250 mL 500 mg, Route: IVPB, Drug form: INJ, [id number], Start date: 09/14/17 17:00:00 ROLL CLEANER, Duration: 30 day, Stop date: 10/14/17 11:00:00 CDT, ABX Indication: Bacteremia Notes: TIME CRITICAL MEDICATION(Same As: Vancocin)Infusion rate< 1000 mg: infuse over 1 [id number] - 1500 mg: infuse over 1.5 hoursVancomycin FOR IV SET [id number] - 2000 mg: infuse over 2 hours> 2001 mg: infuse over 2.5 hoursFor adult patients only: Round to nearest 250 mg per Medical Staff approval MEDICATION WASTE Product Size: 1000 mgProduct Wasted: ___ mg Start Date: 09/14/17 Stop Date: 09/30/17 Status: Discontinued vancomycin + Sodium Chloride 0.9% IV 250 mL 1,250 mg, Route: IVPB, [id number], Start date: 09/10/17 17:00:00 ROLL CLEANER, Duration: 30 day, Stop date: 10/10/17 5:00:00 ROLL CLEANER, ABX Indication: Bacteremia Notes: TIME CRITICAL MEDICATION(Same As: Vancocin)Infusion rate< 1000 mg: infuse over 1 [id number] - 1500 mg: infuse over 1.5 [id number] - 2000 mg: infuse over 2 hours> 2001 mg: infuse over 2.5 hoursFor adult patients only: Round to nearest 250 mg per Medical Staff approval MEDICATION WASTE Product Size: 1000 mgProduct Wasted: ___ mg Start Date: 09/10/17 Stop Date: 09/12/17 Status: Discontinued vancomycin + Sodium Chloride 0.9% IV 250 mL 1,500 mg, Route: IVPB, ONCE, Dosing Weight 72.727, kg, Start date: 09/10/17 4:15 :00 ROLL CLEANER, Stop date: 09/10/17 4:15:00 ROLL CLEANER, ABX Indication: Bacteremia Notes: TIME CRITICAL MEDICATION(Same As: Vancocin)Infusion rate< 1000 mg: infuse over 1 [id number] - 1500 mg: infuse over 1.5 hoursVancomycin FOR IV SET ONLY1501 - 2000 mg: infuse over 2 hours> 2001 mg: infuse over 2.5 hoursFor adult patients only: Round to nearest 250 mg per Medical Staff approval MEDICATION WASTE Product Size: 1000 mgProduct Wasted: ___ mg Start Date: 09/10/17 Stop Date: 09/10/17 Status: Completed vancomycin + Sodium Chloride 0.9% IV 250 mL 750 mg, Route: IVPB, Drug form: INJ, [id number], Start date: 09/12/17 17:00:00 ROLL CLEANER, Duration: 30 day, Stop date: 10/12/17 5:00:00 CDT, ABX Indication: Bacteremia Notes: TIME CRITICAL MEDICATION(Same As: Vancocin)Infusion rate< 1000 mg: infuse over 1 [id number] - 1500 mg: infuse over 1.5 hoursVancomycin FOR IV SET ONLY1501 - 2000 mg: infuse over 2 hours> 2001 mg: infuse over 2.5 hoursFor adult patients only: Round to nearest 250 mg per Medical Staff approval MEDICATION WASTE Product Size: 1000 mgProduct Wasted: ___ mg Start Date: 09/12/17 Stop Date: 09/14/17 Status: Discontinued Xanax 0.5 mg oral tablet 0.5 mg, 1 tab, Route: PO, Drug form: TAB, Daily, Dosing Weight 72.727, kg, Start date: 09/10/17 9:00:00 ROLL CLEANER, Duration: 30 day, Stop date: 10/09/17 9:00:00 ROLL CLEANER Notes: With food or milk(Same as: Xanax) Start Date: 09/10/17 Stop Date: 09/11/17 Status: Discontinued Xanax 0.5 mg oral tablet 2 mg, 4 tab, Route: PO, Drug form: TAB, ONCE, Dosing Weight 72.727, kg, PRN as n eeded for anxiety, Start date: 10/11/17 23:47:00 ROLL CLEANER Notes: With food or milk(Same as: Xanax) Start Date: 10/11/17 Stop Date: 10/12/17 Status: Completed zinc sulfate 220 mg, 1 cap, Route: PO, Drug form: CAP, Daily, Dosing Weight 72.727, kg, Start date: 09/10/17 9:00:00 ROLL CLEANER, Duration: 30 day, Stop date: 11/08/17 9:00:00 CDT Notes: (Zinc sulfate capsule) - 220 mg Zinc sulfate = 50 mg elemental zinc Same as Zinc Sulfate Start Date: 09/10/17 Stop Date: 10/16/17 Status: Discontinued zinc sulfate 220 mg oral tablet 220 mg = 1 tab, PO, Daily, # 100 tab, 0 Refill(s) Start Date: 10/14/17 Status: Ordered Results BLOOD BANK RESULTS 1 2 3 Most recent to oldest [Reference Range]: A POS *Unknown* (09/19/17 4:40 AM) ABO/Rh Negative (09/19/17 4:40 AM) Antibody Scrn Product available (09/19/17 4:12 AM) RBC product ELECTROLYTES 1 2 3 Most recent to oldest [Reference Range]: 145 mEq/L (10/22/17 3:18 AM) 143 mEq/L (10/21/17 4:31 AM) 141 mEq/L (10/20/17 4:17 AM) Sodium Lvl [135-145 mEq/L] 4.9 mEq/L (10/22/17 3:18 AM) 4.4 mEq/L (10/21/17 4:31 AM) 4.9 mEq/L (10/20/17 4:17 AM) Potassium Lvl [3.5-5.1 mEq/L] 113 mEq/L *HI* (10/22/17 3:18 AM) 110 mEq/L *HI* (10/21/17 4:31 AM) 108 mEq/L (10/20/17 4:17 AM) Chloride Lvl [95-109 mEq/L] 24 mEq/L (10/22/17 3:18 AM) 22 mEq/L *LOW* (10/21/17 4:31 AM) 25 mEq/L (10/20/17 4:17 AM) CO2 [24-32 mEq/L] 12.9 mEq/L (10/22/17 3:18 AM) 15.4 mEq/L (10/21/17 4:31 AM) 12.9 mEq/L (10/20/17 4:17 AM) AGAP [10.0-20.0 mEq/L] CHEM PANEL 1 2 3 Most recent to oldest [Reference Range]: 1.34 mg/dL (10/22/17 3:18 AM) 1.53 mg/dL *HI* (10/21/17 4:31 AM) 1.96 mg/dL *HI* (10/20/17 4:17 AM) Creatinine Lvl [0.50-1.40 mg/dL] 70 mL/min/1.73m2 1 *NA* (10/22/17 3:18 AM) 59 mL/min/1.73m2 2 *NA* (10/21/17 4:31 AM) 44 mL/min/1.73m2 3 *NA* (10/20/17 4:17 AM) eGFR 28 mg/dL *HI* (10/22/17 3:18 AM) 35 mg/dL *HI* (10/21/17 4:31 AM) 39 mg/dL *HI* (10/20/17 4:17 AM) BUN [7-22 mg/dL] 19 (10/15/17 3:00 AM) 20 (10/14/17 3:16 AM) 31 *HI* (10/04/17 4:18 AM) B/C Ratio [6-25] 79 mg/dL (10/22/17 3:18 AM) 81 mg/dL (10/21/17 4:31 AM) 98 mg/dL (10/20/17 4:17 AM) Glucose Lvl [70-99 mg/dL] 7.9 g/dL (10/15/17 3:00 AM) 7.9 g/dL (10/14/17 3:16 AM) 8.9 g/dL *HI* (10/04/17 4:18 AM) Total Protein [6.4-8.4 g/dL] 2.5 g/dL *LOW* (10/15/17 3:00 AM) 2.6 g/dL *LOW* (10/14/17 3:16 AM) 2.7 g/dL *LOW* (10/04/17 4:18 AM) Albumin Lvl [3.5-5.0 g/dL] 5.4 g/dL *HI* (10/15/17 3:00 AM) 5.3 g/dL *HI* (10/14/17 3:16 AM) 6.2 g/dL *HI* (10/04/17 4:18 AM) Globulin [2.7-4.2 g/dL] 0.5 *LOW* (10/15/17 3:00 AM) 0.5 *LOW* (10/14/17 3:16 AM) 0.4 *LOW* (10/04/17 4:18 AM) A/G Ratio [0.7-1.6] 8.5 mg/dL (10/22/17 3:18 AM) 8.5 mg/dL (10/21/17 4:31 AM) 8.4 mg/dL *LOW* (10/20/17 4:17 AM) Calcium Lvl [8.5-10.5 mg/dL] 24 unit/L (10/15/17 3:00 AM) 23 unit/L (10/14/17 3:16 AM) 58 unit/L (10/04/17 4:18 AM) ALT [0-65 unit/L] 18 unit/L (10/15/17 3:00 AM) 24 unit/L (10/14/17 3:16 AM) 43 unit/L *HI* (10/04/17 4:18 AM) AST [0-37 unit/L] 115 unit/L (10/15/17 3:00 AM) 115 unit/L (10/14/17 3:16 AM) 149 unit/L *HI* (10/04/17 4:18 AM) Alk Phos [39-136 unit/L] 0.3 mg/dL (10/15/17 3:00 AM) 0.3 mg/dL (10/14/17 3:16 AM) 0.4 mg/dL (10/04/17 4:18 AM) Bili Total [0.2-1.3 mg/dL] 1.9 mMol/L (09/12/17 4:51 AM) 2.3 mMol/L *HI* (09/09/17 11:05 PM) Lactic Acid Lvl [0.5-2.2 mMol/L] 0.22 ng/mL *HI* (09/09/17 11:05 PM) Procalcitonin Lvl [0.00-0.10 ng/mL] 1Result Comment: [...] 3 Most recent to oldest [Reference Range]: 22 unit/L (09/09/17 11:05 PM) Total CK [12-191 unit/L] <0.02 ng/mL (09/09/17 11:05 PM) Troponin-I [0.00-0.40 ng/mL] DRUG SCREEN 1 2 3 Most recent to oldest [Reference Range]: Negative *NA* (10/16/17 11:43 PM) U Methadone Scr [Negative] Negative *NA* (10/16/17 11:43 PM) U Propoxyph Scr [Negative] Negative *NA* (10/16/17 11:43 PM) U Amph Scr [Negative] Negative *NA* (10/16/17 11:43 PM) U Chelsie Scr [Negative] Positive *ABN* (10/16/17 11:43 PM) U Benzodia Scr [Negative] Negative *NA* (10/16/17 11:43 PM) U Cocaine Scr [Negative] Positive *ABN* (10/16/17 11:43 PM) U Opiate Scr [Negative] Negative *NA* (10/16/17 11:43 PM) U Phencyc Scr [Negative] Positive *ABN* (10/16/17 11:43 PM) U Cannab Scr [Negative] See Note (10/16/17 11:43 PM) UDS Note TOXICOLOGY 1 2 3 Most recent to oldest [Reference Range]: 19.7 ug/ml *NA* (09/17/17 1:09 AM) 8.4 ug/ml *NA* (09/14/17 9:52 PM) Amikacin Lvl <2.5 ug/ml *NA* (09/20/17 4:46 PM) <2.5 ug/ml *NA* (09/18/17 3:21 PM) Amikacin Tr 1645 *NA* (09/20/17 4:46 PM) 15:30 *NA* (09/18/17 3:21 PM) Amik Tr TND 4:00 *NA* (10/20/17 4:17 AM) 0500 *NA* (10/16/17 5:38 AM) 1200 *NA* (10/10/17 11:37 AM) Vanco Tr TND 16.0 ug/ml *NA* (10/21/17 4:31 AM) 21.3 ug/ml *NA* (10/13/17 1:39 PM) 8.0 ug/ml *NA* (09/18/17 8:23 PM) Vanco Lvl 14.6 ug/ml *NA* (10/20/17 4:17 AM) 16.6 ug/ml *NA* (10/16/17 5:38 AM) 20.0 ug/ml *NA* (10/10/17 11:37 AM) Vanco Tr URINE AND STOOL 1 2 3 Most recent to oldest [Reference Range]: Cloudy *ABN* (09/09/17 11:25 PM) UA Turbidity [Clear] Yellow *NA* (09/09/17 11:25 PM) UA Color [Yellow] 7.0 (09/09/17 11:25 PM) UA pH [5.0-8.0] 1.020 (09/09/17 11:25 PM) UA Spec Grav [<=1.030] Negative (09/09/17 11:25 PM) UA Glucose [Negative] Small *ABN* (09/09/17 11:25 PM) UA Blood [Negative] Negative *NA* (09/09/17 11:25 PM) UA Ketones [Negative] 100 mg/dL *ABN* (09/09/17 11:25 PM) UA Protein [Negative mg/dL] 0.2 EU/dL (09/09/17 11:25 PM) UA Urobilinogen [0.1-1.0 EU/dL] Negative *NA* (09/09/17 11:25 PM) UA Bili [Negative] Moderate *ABN* (09/09/17 11:25 PM) UA Leuk Est [Negative] Positive *ABN* (09/09/17 11:25 PM) UA Nitrite [Negative] Packed *ABN* (09/09/17 11:25 PM) UA WBC [None Seen] None Seen (09/09/17 11:25 PM) UA RBC [0-2] Many /HPF (09/09/17 11:25 PM) UA Bacteria [None Seen /HPF] None Seen (09/09/17 11:25 PM) UA Sq Epi [Few] Moderate /HPF *ABN* (09/09/17 11:25 PM) UA Amorph Michelle [None Seen /HPF] Performed (09/09/17 11:25 PM) Micro? IMMUNOLOGY 1 2 3 Most recent to oldest [Reference Range]: 93.8 mg/L *HI* (10/22/17 1:35 PM) 67.2 mg/L *HI* (10/13/17 1:39 PM) 113.0 mg/L *HI* (10/06/17 2:29 PM) CRP [<=2.9 mg/L] Negative *NA* (09/10/17 5:59 AM) CDC HIV 4th GEN [Negative] HEMATOLOGY 1 2 3 Most recent to oldest [Reference Range]: 9.3 K/CMM (10/18/17 3:17 AM) 7.2 K/CMM (10/16/17 5:38 AM) 7.7 K/CMM (10/04/17 4:18 AM) WBC [3.7-10.4 K/CMM] 3.60 M/CMM *LOW* (10/18/17 3:17 AM) 3.78 M/CMM *LOW* (10/16/17 5:38 AM) 3.96 M/CMM *LOW* (10/04/17 4:18 AM) RBC [4.70-6.10 M/CMM] 8.9 g/dL *LOW* (10/18/17 3:17 AM) 9.2 g/dL *LOW* (10/16/17 5:38 AM) 9.8 g/dL *LOW* (10/04/17 4:18 AM) Hgb [14.0-18.0 g/dL] 27.4 % *LOW* (10/18/17 3:17 AM) 28.6 % *LOW* (10/16/17 5:38 AM) 29.9 % *LOW* (10/04/17 4:18 AM) Hct [42.0-54.0 %] 76.2 fL *LOW* (10/18/17 3:17 AM) 75.8 fL *LOW* (10/16/17 5:38 AM) 75.6 fL *LOW* (10/04/17 4:18 AM) MCV [80.0-94.0 fL] 24.8 pg *LOW* (10/18/17 3:17 AM) 24.3 pg *LOW* (10/16/17 5:38 AM) 24.7 pg *LOW* (10/04/17 4:18 AM) MCH [27.0-31.0 pg] 32.6 g/dL (10/18/17 3:17 AM) 32.0 g/dL (10/16/17 5:38 AM) 32.6 g/dL (10/04/17 4:18 AM) MCHC [32.0-36.0 g/dL] 20.6 % *HI* (10/18/17 3:17 AM) 20.9 % *HI* (10/16/17 5:38 AM) 20.2 % *HI* (10/04/17:18 AM) RDW [11.5-14.5 %] 8.4 fL (10/18/17 3:17 AM) 8.0 fL (10/16/17 5:38 AM) 7.7 fL (10/04/17 4:18 AM) MPV [7.4-10.4 fL] 236 K/CMM (10/18/17 3:17 AM) 255 K/CMM (10/16/17 5:38 AM) 428 K/CMM (10/04/17 4:18 AM) Platelet [133-450 K/CMM] 60.2 % (10/18/17 3:17 AM) 46.1 % (10/16/17 5:38 AM) 54.8 % (10/04/17 4:18 AM) Segs [45.0-75.0 %] 23.0 % (10/18/17 3:17 AM) 34.4 % (10/16/17 5:38 AM) 27.6 % (10/04/17:18 AM) Lymphocytes [20.0-40.0 %] 10.1 % (10/18/17 3:17 AM) 11.7 % (10/16/17 5:38 AM) 12.2 % *HI* (10/04/17 4:18 AM) Monocytes [2.0-12.0 %] 6.0 % *HI* (10/18/17 3:17 AM) 7.2 % *HI* (10/16/17 5:38 AM) 4.4 % *HI* (10/04/17 4:18 AM) Eosinophils [0.0-4.0 %] 0.7 % (10/18/17 3:17 AM) 0.6 % (10/16/17 5:38 AM) 1.0 % (10/04/17 4:18 AM) Basophils [0.0-1.0 %] 5.6 K/CMM (10/18/17 3:17 AM) 3.3 K/CMM (10/16/17 5:38 AM) 4.2 K/CMM (10/04/17 4:18 AM) Segs-Bands # [1.5-8.1 K/CMM] 2.1 K/CMM (10/18/17 3:17 AM) 2.5 K/CMM (10/16/17 5:38 AM) 2.1 K/CMM (10/04/17 4:18 AM) Lymphocytes # [1.0-5.5 K/CMM] 0.9 K/CMM *HI* (10/18/17 3:17 AM) 0.8 K/CMM (10/16/17 5:38 AM) 0.9 K/CMM *HI* (10/04/17 4:18 AM) Monocytes # [0.0-0.8 K/CMM] 0.6 K/CMM *HI* (10/18/17 3:17 AM) 0.5 K/CMM (10/16/17 5:38 AM) 0.3 K/CMM (10/04/17 4:18 AM) Eosinophils # [0.0-0.5 K/CMM] 0.1 K/CMM (10/18/17 3:17 AM) 0.1 K/CMM (10/04/17 4:18 AM) 0.1 K/CMM (10/02/17 12:08 AM) Basophils # [0.0-0.2 K/CMM] 1+ *ABN* (10/18/17 3:17 AM) 1+ *ABN* (10/16/17 5:38 AM) 1+ *ABN* (10/04/17 4:18 AM) Microcyte [None Seen] 62 mm/hr *HI* (10/13/17 1:39 PM) 90 mm/hr *HI* (10/06/17 2:29 PM) >100 mm/hr *ABN* (09/26/17 11:44 AM) Sed Rate [0-15 mm/hr] 14.3 seconds (10/12/17 5:20 PM) 14.3 seconds (09/18/17 3:03 AM) 14.2 seconds (09/09/17 11:05 PM) PT [12.0-14.7 seconds] 1.11 (10/12/17 5:20 PM) 1.11 (09/18/17 3:03 AM) 1.10 (09/09/17 11:05 PM) INR [0.85-1.17] 38.8 seconds *HI* (09/18/17 3:03 AM) 37.4 seconds *HI* (09/09/17 11:05 PM) PTT [22.9-35.8 seconds] MOLECULAR DIAGNOSTIC 1 2 3 Most recent to oldest [Reference Range]: 218 IU/mL *NA* (10/17/17 2:54 AM) HCV RNA VirLoad 2.3 IU/mL *NA* (10/17/17 2:54 AM) HCV RNA Log10 Microbiology Reports TEST: Culture: Urine STATUS: Auth (Verified) BODY SITE: SOURCE: Urine, Clean Catch COLLECTED DATE/TIME: 09/09/17 11:25 PM FINAL REPORT 50,000 - 100,000 CFU/mL Acinetobacter baumannii , Multi-drug Resistant Organism 10,000 - 50,000 CFU/mL Escherichia coli , Multi-drug Resistant Organism 50,000 - 100,000 CFU/mL Skin Joanie ORGANISM:Acinetobacter baumannii ORGANISM:Escherichia coli Immunizations Given and Recorded Vaccine Date Status [...] No. Drug use interferes with work/home: No. [place] dy to change: No. Household substance abuse [...] Plan Extracted from: Title: Clinical Document Author: Ziyad Lovell MD Date: 10/22/17 Infectious Disease Progress Note - Daily [facility] Completed: Friday, OCT 22, 2017, 11:23 by Ziyad Lovell MD RM: [id number] - [id number], [id number] DAS JR [id number] (: 1985) M Attending: Jimi Fox MDPhone: Service: Internal Medicine Reason for Admission: BLADDER INFECTION Working DRG: Septicemia or severe sepsis w/o MV 96+ hours w [facility] [place] Code status: Full Code [Ordered]Current diet: Isolation: Contact Allergies: DULoxetine, morphine, traMADol, [...] normal, paraplegic 24hr Labs 10/22 0318 Glucose Lvl79 BUN28 H Creatinine Lvl1.34 Sodium Sjg184 Potassium Lvl4.9 Chloride Usv196 H CO224 AGAP12.9 Calcium Lvl8.5 eGFR70 Greene still necessary (Yes/No): Line still necessary (Yes/No): VitalsTmp(F)[id number] 10/22 08:0097.959643/107--95--- 10/22 04:2297.4325812/365002--- 10/22 01:2797.4854907/196412--- 10/21 20:4797.2828537/948967--- 10/21 15:4998.5038812/808621--- 24 Hr Tmax: 98.0F (36.67c) at 10/21 15:4 9Vital Signs are the last 5 in the past 48 hours. DateWt(kg)Wt(lb)Ht(cm)Ht(in)Method 10/02 72.73 160.16664.88 72.00----- 09/10 72.73 160.65378.88 72.00----- 09/09 (initial) 72.73 160.00Estimated 09/09182.88 72.00Stated I&ORecordInOutBal 10/2123hr Tot 69 0 69 10/2023hr Tot 2838 3350 -512 Medications (26) Active Scheduled Meds (18): 09/10/17 [...] 1,000 mL) 1,000 mL 150 ml/hr ASSESSMENT & PLAN 1. 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 Extracted from: Title: Interventional Radiology Author: Beryl Washburn NP Date: [...] 06/03/15 Colonoscopy: 2008 Nephrectomy: 2005 Laparoscopy Amputation of RLE Wound care Colostomy [...] 0.9% IV 100 mL) 1,000 mg IV [id number] 208 ml/hr 09/10/17 amitriptyline 50 mg PO Bedtime 09/10/17 ascorbic acid 500 mg PO BID 09/12/17 baclofen 10 mg PO TID 09/10/17 (Suspended) carvedilol 3.125 m g PO BID-Meals 09/10/17 docusate 100 mg PO BID 09/14/17 dronabinol 5 mg PO BID 09/12/17 enoxaparin 30 mg SUB-Q [id number] 09/10/17 ferrous sulfate 325 mg PO Daily [...] 9% IV 250 mL 500 mg IVPB [id number] 250 ml/hr 09/10/17 zinc sulfate 220 mg PO Daily Unscheduled Meds: None PRN Meds (6): 09/15/17 acetaminophen-hydrocodone (Norc o 10/325 oral tablet) 1 tab PO Q4H 09/16/17 albuterol (albuterol 0.083% inh alation solution) 2.49 mg NEB RQ2H 09/10/17 docusate (docusate sodium 100 m g oral capsule) 100 mg PO BID 02/07/18 ondansetron 4 mg IVP Q6H 09/10/17 senna (senna 8.6 mg oral tablet ) 8.6 mg PO BID 09/09/17 sodium chloride (Saline Flush 0 .9%) 10 mL IVP PRN One Time Meds: None Continuous Infusions: None Labs: 24hr Labs 09/17 1022 Glucose Zek146 H BUN25 H Creatinine Lvl1.24 Sodium Xob055 Potassium Lvl4.6 Chloride Pvp324 CO229 AGAP11.6 Calcium Lvl8.3 L eGFR76 09/17 0109 Glucose Lvl69 L BUN23 H Creatinine Lvl1.55 H Sodium Zje719 Potassium Lvl5.2 H Chloride Tfr389 CO225 AGAP14.2 Calcium Lvl8.9 eGFR58 Amikacin Lvl19.7 WBC8.2 RBC3.09 L Hgb7.4 L Hct24.5 L MCV79.3 L MCH24.1 L MCHC30.4 L RDW20.4 H Ajsfrtuw956 H MPV8.1 Segs51.3 Bdjxbrvkp24.0 Ueigfudyopn40.1 Eosinophils4.2 H Basophils1.4 H Segs-Bands #4.2 Lymphocytes #2.7 Monocytes #0.8 Eosinophils #0.3 Basophils #0.1 09/16 1718 Vanco Tr [id number] Vanco Tr21.4 INR: 1.1 (09/09/17 23:22:45)No qualifying data available. [...] no diabetes or thyroid dysfunction Physical Examination: VitalsTmp(F)Tmp(C)HhajqAXNXXTwovyRRWnS0IQF7MFVL1 09/17 11:0098.136.68dgfm319/65---[id number] ------ 09/17 07:3198.236.57tslr147/74---[id number] ------ 09/17 04:1398.336.53bcnf268/86---[id number] 0------ 09/17 00:1198.036.41qnjm851/74---[id number] 0------ 09/16 19:3997.636.82iofi891/78---[id number] 0------ 24 Hr Tmax: 98.5F (36.94c) at 09/16 14:3 0Vital Signs are the last 5 in the past 48 hours. 24 Hr Tmin: 97.6F (36.44c) at 09/16 19: 39Weights are the last 5 in 60 days, plus initial. DateWt(kg)Wt(lb)Ht(cm)Ht(in)MethodBMIBSA 09/10 72.73 160.63146.88 72.00----- 09/09 (initial) 72.73 160.00Estimated 21 .81.92 09/09182.88 72.00Stated (no point of care glucose results charte d in last 24 hours) Most Recent Scores: 09/16/17Pain Intensity NRS (0-10)8 09/16/17Glasgow Coma Score15 09/16/17Johns Balderrama Fall Score14 09/16/17Braden Score15 Lines, Tubes, and Drains: 09/17/2017 12:20 Peripheral Lines: Upper arm Right 20 gauge Over the needle catheter 09/10/2017 20:00 GI Ostomy: Colostomy In continent abdomen 09/10/2017 20:00 Ostomy: Suprapubic I ncontinent Midline General: chronically ill appearing male in no acute distress Head: Normocephalic, atraumatic Eyes: sclera is clear Hearing: normal to spoken voice Speech: Adequate vocabulary, no impediments Nose: [place] nasal turbinates, septum midline, no drainage or [...] IF YOU HAVE ANY QUESTIONS, PLEASE CONTACT [phone]. Addendum I have personally interview ed and examined the patient with the Nurse Practitioner and I by Morales, agree with assessment and p radha as delineated in the note above. A total of approximately Jonatan _20__ minutes was spent wit h the patient, with one half of the time spent on counseling, Carlos lab and imaging review and discussion. on 09/17/2017 15:32 Extracted from: Title: History and Physical Author: Maddie Aldridge MD te: 09/10/17 1.Sepsis - likely secondary to UTI [...] any questions. Maddie Aldridge MD Hospitalist Pager [phone]
--- OUTSIDE RECORDS SUMMARY | 2020-03-18 10:19 | XMS REPORT | CCD ---
Author Author Auto MAXIMO Watts [facility] Address Unknown Phone Unavailable Care Team Providers Care Orderlies Teacher Name Role Phone Jose Alejandro Basurto RP ChartServer, Login CP Unavailable Noy Sharma CP Unavailable Jailene Marrero CP Unavailable Terese Salinas CP [phone] SYSTEM, SYSTEM CP Unavailable Jeff Casarez CP [phone] Allergies, Adverse Reactions, Alerts Substance Reaction Status NKDA ?? Active Problem List Condition Effective Dates Status Acinetobacter1 ?? Active 1Problem added by Discern Expert. Vital Signs Most recent to oldest [Reference Range]: 1 Systolic Blood Pressure [90-140 mmHg] 129 mmHg (05/03/2011 14:27:00) ?? Diastolic Blood Pressure [60-90 mmHg] 90 mmHg (05/03/2011 14:27:00) ?? Respiratory Rate [14-20 BRMIN] 16 BRMIN (05/03/2011 14:27:00) ?? Peripheral Pulse Rate [60-100 bpm] 70 bpm (05/03/2011 14:27:00) ??
--- OUTSIDE RECORDS SUMMARY | 2020-03-18 10:19 | XMS REPORT | CCD ---
Author Author Auto MAXIMO Watts Organization [facility] Address Unknown Phone Unavailable Care Team Providers Care Wharf Worker Name Role Phone Oskar Watson CP Allergies, Adverse Reactions, Alerts Substance Reaction Status NKDA Active NKFA Active Problem List Condition Effective Dates Status Acinetobacter1, 2 09/03/2006 Active Cellulitis Active ESBL Escherichia coli3, 4 11/06/2011 Active Pain Active Paraplegia Active UTI - Urinary tract infection Active Vomiting Active --MDRO Acinetobacter collected from urine 2Problem added by Discern Expert. 3MDRO, URINE, 11/06/2011 4Problem added by Discern Expert. Medications Medication Instructions Start Date End Date Status Bunola oral 2 tab, Route: PO, Drug Form: TAB, 12/05/2011 12/09/2011 Discontinued tablet Q4H, PRN Pain, Start date: 12/05/11 14:25:00, Duration: 30 day, Stop date: 01/04/12 14:24:00 Floranex 1 tab, Route: PO, Drug Form: TAB, 12/04/201112/08 Discontinued BID, Start date: 12/04/11 22:51:00, Duration: 30 day, Stop date: 01/03/12 17:00:00 ondansetron 4 mg 1 tab, Route: PO, ONCE, Start date: 12/04/2011 12/04/2011 Discontinued oral tablet, 12/04/11 18:39:00, Stop river e: disintegrating 12/04/11 18:39:00 Dilaudid 1 mg, Route: IV, ONCE, Start date: 12/04/201109/2011 Discontinued 12/04/11 18:39:00, Stop date: 12/04/11 18:39:00 NS (Bolus) IV 1,000 1,000 mL, Rate: 1,000 ml/hr, Infuse 12/0312/04/2011 Completed mL over: 1 hr, Route: IV, Dosi ng Weight 56.818 kg, Total Volume: 1,000, Start date: 12/04/11 19:50:00, Duration: 1 doses or times, Stop date: 12/04/11 20:49:00 Questran 4 gm, 1 pkt, Route: PO, Drug form: 12/05/201102/2012 Discontinued PDR/REC, BID, Start date: 12/05/11 17:00:00, Duration: 30 day, Stop date: 01/04/12 9:00:00 NS 1,000 mL 1,000 mL, Rate: 100 ml/hr, Infuse 12/04/201112/05 Discontinued over: 10 hr, Route: IV, Dosing Weight 56.818 kg, Total Volume: 1,000, Start date: 12/04/11 21:20:00, Duration: 30 day, Stop date: 01/03/12 21:19:00 Tylenol 650 mg, 2 tab, Route: PO, Drug 12/04/2011 12/09/19 12 Discontinued form: TAB, Q4H, PRN Pain, Start date: 12/04/11 21:20:00, Duration: 30 day, Stop date: 01/03/12 21:19:00 ciprofloxacin 400 mg, 200 mL, Route: IVPB, Drug 12/04/201109/2011 Discontinued form: INJ, ONCE, Priority: STAT, Start date: 12/04/11 19:55:00, Stop date: 12/04/11 19:55:00 Bunola 10/325 oral 1 tab, Route: PO, Drug Form: TAB, 12/04/2011 12/09/2011 Discontinued tablet Q4H, PRN Pain, Start date: 12/04/11 21:20:00, Duration: 30 day, Stop date: 01/03/12 21:19:00 Cipro I.V. 400 400 mg, Route: IV, ONCE, Start 12/04/201112/03 Discontinued mg/200 mL date: 12/04/11 19:34:00, St op date: intravenous solution 12/04/11 19:34:00 lactobacillus 1 cap, Route: PO, Drug Form: CAP, 12/05/201109/2011 Discontinued acidophilus BID, Start date: 12/05/11 9 :00:00, Duration: 30 day, Stop date: 01/03/12 17:00:00 Flagyl 500 mg, 1 tab, Route: PO, Drug 12/05/2011 12/09/19 Discontinued form: TAB, Q8H, Start date: 12/05/11 0:00:00, Duration: 30 day, Stop date: 01/03/12 16:00:00 Sodium Chloride 0.9% 25 mL, Route: IV, Start date: 12/05/2011 12/09/2011 Discontinued IV 12/05/11 0:19:00, Duration: 30 day, Stop date: 01/04/12 0:18:00, PRN Line Flush BD Normal Saline 10 mL, Route: IV, Drug Form: INJ, 12/05/2011 12/09/2011 Discontinued Flush PRN, PRN Line Flush, Start date: 12/05/11 0:19:00, Duration: 30 day, Stop date: 01/04/12 0:18:00 Phenergan 25 mg, 1 mL, Route: IVPB, Q6H, PRN 12/05/201102/2012 Discontinued Nausea & Vomiting, Start date: 12/05/11 0:18:00, Duration: 30 day, Stop date: 01/04/12 0:17:00 Zofran 4 mg, 2 mL, Route: IVP, Drug form: 12/05/2011 050 10/2011 Discontinued INJ, Q8H, PRN Nausea & Vomiting, Start date: 12/05/11 0:18:00, Duration: 30 day, Stop date: 01/04/12 0:17:00 Bactrim DS oral 1 tab, PO, BID, 20 tab, 12/09/2011 12/19/2011 Ordered tablet Substitution Allowed, Maint enance, TAB Bactrim DS 1 tab, Route: PO, Drug Form: TAB, 12/06/201112/08 Discontinued BID, Start date: 12/06/11 17:00:00, Duration: 14 day, Stop date: 12/20/11 9:00:00 Floranex oral tablet 1, PO, BID, 60 tab, Substitution 012 Ordered Allowed, Maintenance, TAB Questran 4 g/9 g 1 Pack, PO, BID, 60 ea, 1, 1, 12/09/2011 Ordered oral powder Substitution Allowed, PDR/R EC meropenem 1,000 mg, Route: IV, [id number], Start 12/04/2011 0511/2011 Discontinued date: 12/04/11 23:00:00, Duration: 30 day, Stop date: 01/03/12 15:00:00 Flagyl 500 mg oral 500 mg, 1 tab, PO, Q8H, 30 tab, 12/04/2011 12/09/2011 Discontinued tablet Substitution Allowed Augmentin 875 mg 875 mg, PO, BID, 20 tab, 12/05/2011 2 Discontinued oral tablet Substitution Allowed, Maint enance Xanax 2 mg oral 2 mg, 1 tab, PO, BID, PRN, Anxiety, 12/05/2011 12/09/2011 Discontinued tablet Substitution Allowed Soma 350 mg oral 350 mg, 1 tab, PO, TID, 30 tab, 12/05/2011 Discontinued tablet Substitution Allowed, TAB Lortab 10/500 oral 1 tab, PO, Q6H, PRN, as needed for 12/05/2011 12/09/2011 Discontinued tablet pain, Substitution Allowed, Maintenance Diflucan 100 mg, 1 tab, Route: PO, Drug 12/06/2011 12/08/19 12 Completed form: TAB, [id number], Start date: 12/06/11 15:00:00, Duration: 3 day, Stop date: 12/08/11 15:00:00 Flagyl 500 mg oral 500 mg, 1 tab, PO, Q8H, 30 tab, 1, 12/09/2011 12/29/2011 Ordered tablet 1, Substitution Allowed, TA B Xanax 2 mg oral 2 mg, 1 tab, PO, BID, PRN, 15 tab, 12/09/2011 Ordered tablet | Anxiety, Substitution All owed, TAB Lortab 10/500 oral 1 tab, PO, Q6H, PRN, 30 tab, 0, 0, 012 Ordered tablet | as needed for pain, Subst itution Allowed, Maintenance, TAB ondansetron 4 mg 1 tab, Route: PO, ONCE, Start date: 12/04/2011 12/04/2011 Completed oral tablet, 12/04/11 20:59:00, Stop river e: disintegrating 12/04/11 20:59:00 ondansetron 4 mg 4 mg, 1 tab, Route: PO, Drug form: 12/05/2011 12/09/2011 Discontinued oral tablet, TABDIS, TID, PRN as needed for disintegrating nausea/vomiting, Start date : 12/05/11 7:35:00, Duration: 30 day, Stop date: 01/04/12 7:34:00 Dilaudid 1 mg, 0.5 mL, Route: IV, Drug form: 12/05/201102/2012 Discontinued INJ, Q8H, PRN For Pain, Start date: 12/05/11 7:35:00, Stop date: 01/04/12 7:34:00 meropenem 1,000 mg, Route: IV, ONCE, Start 12/04/20112011 Completed date: 12/04/11 21:12:00, Stop date: 12/04/11 21:12:00 Cipro I.V. 400 400 mg, 200 mL, Route: IV, Drug 12/05/201110/2011 Discontinued mg/200 mL form: INJ, [id number], Start d ate: intravenous solution 12/05/11 8:00:00, Duration: 30 day, Stop date: 01/03/12 20:00:00 ondansetron 4 mg 1 tab, Route: PO, ONCE, Start date: 12/04/2011 12/04/2011 Completed oral tablet, 12/04/11 18:42:00, Stop river e: disintegrating 12/04/11 18:42:00 Dilaudid 1 mg, Route: IV, ONCE, Start date: 12/04/20110 09/2011 Completed 12/04/11 18:42:00, Stop date: 12/04/11 18:42:00 Soma 350 mg, Route: PO, Drug form: TAB, 12/05/20110 10/2011 Deleted TID, Start date: 12/05/11 17:00:00, Duration: 30 day, Stop date: 01/04/12 13:00:00 Zofran 4 mg, 2 mL, Route: IVP, Drug form: 12/05/2011 050 02/2012 Discontinued INJ, Q6H, PRN Nausea, Start date: 12/05/11 14:26:00, Duration: 30 day, Stop date: 01/04/12 14:25:00 Prevacid 30 mg oral 30 mg, 1 cap, PO, Daily, 30 cap, 1, 12/08 Ordered delayed release 1, Substitution Allowed capsule Xanax 2 mg oral 2 mg, 2 tab, Route: PO, Drug form: 12/05/2011 12/09/2011 Discontinued tablet TAB, BID, PRN as needed for anxiety, Start date: 12/05/11 14:13:00, Duration: 30 day, Stop date: 01/04/12 14:12:00 Lovenox 40 mg, 0.4 mL, Route: SUB-Q, Drug 12/06/201112/08 Discontinued form: INJ, [id number], Start date: 12/06/11 14:15:00, Duration: 30 day, Stop date: 01/04/12 14:15:00 D5NS 1,000 mL 1,000 mL, Rate: 75 ml/hr, Infuse 12/06/201101/2012 Discontinued over: 13.3 hr, Route: IV, Dosing Weight 56.818 kg, Total Volume: 1,000, Start date: 12/06/11 14:14:00, Duration: 30 day, Stop date: 01/05/12 14:13:00 Vital Signs Most recent to oldest [Reference Range]: 1 2 3 Height 165.10 cm (12/04/2011 15:19:00) Current Weight 63.545 kg (12/09/2011 08:00:00) 62.273 kg (12/08/2011 08:42:00) 61.500 kg (12/07/2011 05:11:00) Temperature Oral [96.4-99.1 DegF] 97.9 DegF (12/09/2011 12:00:00) 98.3 DegF (12/09/2011 08:00:00) 98.6 DegF (12/09/2011 00:00:00) Systolic Blood Pressure [90-140 mmHg] 120 mmHg (12/09/2011 12:00:00) 131 mmHg (12/09/2011 08:00:00) 112 mmHg (12/09/2011 00:00:00) Diastolic Blood Pressure [60-90 mmHg] 87 mmHg (12/09/2011 12:00:00) 88 mmHg (12/09/2011 08:00:00) 58 mmHg *LOW* (12/09/2011 00:00:00) Respiratory Rate [14-20 BRMIN] 18 BRMIN (12/09/2011 12:00:00) 18 BRMIN (12/09/2011 08:00:00) 18 BRMIN (12/09/2011 00:00:00) Peripheral Pulse Rate [60-100 bpm] 104 bpm *HI* (12/09/2011 12:00:00) 67 bpm (12/09/2011 08:00:00) 97 bpm (12/09/2011 00:00:00) Weight 56.818 kg (12/04/2011 15:19:00) Results BACTERIAL - SEROLOGY Most recent to oldest [Reference Range]: 1 2 3 C diff Toxin Negative (12/07/2011 06:10:00) Negative (12/04/2011 21:45:00) URINALYSIS Most recent to oldest [Reference Range]: 1 2 3 UA Turbidity [Clear] Marked *ABN* (12/04/2011 17:45:00) UA Color [Yellow] Yellow *NA* (12/04/2011 17:45:00) UA pH [5.0-8.0] 6.0 (12/04/2011 17:45:00) UA Spec Grav [<=1.030] 1.022 (12/04/2011 17:45:00) UA Glucose [Negative mg/dL] Negative mg/dL *NA* (12/04/2011 17:45:00) UA Blood [Negative] Moderate *ABN* (12/04/2011 17:45:00) UA Ketones [Negative mg/dL] 60 mg/dL *ABN* (12/04/2011 17:45:00) UA Protein [Negative mg/dL] 200 mg/dL *ABN* (12/04/2011 17:45:00) UA Urobilinogen [0.1-1.0 mg/dL] <=1.0 mg/dL *NA* (12/04/2011 17:45:00) UA Bili [Negative] Negative *NA* (12/04/2011 17:45:00) UA Leuk Est [Negative] Large *ABN* (12/04/2011 17:45:00) UA Nitrite [Negative] Negative (12/04/2011 17:45:00) UA WBC [0-5 /HPF] >182 /HPF *HI* (12/04/2011 17:45:00) UA RBC [0-2 /HPF] 160 /HPF *HI* (12/04/2011 17:45:00) UA Mucus [None Seen /LPF] Few /LPF *NA* (12/04/2011 17:45:00) Micro? Performed *NA* (12/04/2011 17:45:00) CHEMISTRY Most recent to oldest [Reference Range]: 1 2 3 Sodium Lvl [135-145 mEq/L] 142 mEq/L (12/07/2011 05:55:00) 140 mEq/L (12/05/2011 03:53:00) 139 mEq/L (12/04/2011 17:45:00) Potassium Lvl [3.5-5.1 mEq/L] 3.7 mEq/L (12/07/2011 05:55:00) 3.7 mEq/L (12/05/2011 03:53:00) 3.8 mEq/L (12/04/2011 17:45:00) Chloride Lvl [95-109 mEq/L] 108 mEq/L (12/07/2011 05:55:00) 105 mEq/L (12/05/2011 03:53:00) 102 mEq/L (12/04/2011 17:45:00) CO2 [24-32 mEq/L] 25 mEq/L (12/07/2011 05:55:00) 22 mEq/L *LOW* (12/05/2011 03:53:00) 26 mEq/L (12/04/2011 17:45:00) AGAP [10.0-20.0 mEq/L] 12.7 mEq/L (12/07/2011 05:55:00) 16.7 mEq/L (12/05/2011 03:53:00) 14.8 mEq/L (12/04/2011 17:45:00) Creatinine Lvl [0.5-1.4 mg/dL] 0.7 mg/dL (12/07/2011 05:55:00) 0.6 mg/dL (12/05/2011 03:53:00) 0.7 mg/dL (12/04/2011 17:45:00) eGFR >60 1 *NA* (12/07/2011 05:55:00) >60 2 *NA* (12/05/2011 03:53:00) BUN [7-22 mg/dL] 8 mg/dL (12/07/2011 05:55:00) 10 mg/dL (12/05/2011 03:53:00) 8 mg/dL (12/04/2011 17:45:00) B/C Ratio [6-25] 11 (12/04/2011 17:45:00) Glucose Lvl [70-99 mg/dL] 106 mg/dL 3 *HI* (12/07/2011 05:55:00) 82 mg/dL 4 (12/05/2011 03:53:00) 102 mg/dL 5 *HI* (12/04/2011 17:45:00) Total Protein [6.4-8.4 g/dL] 9.1 g/dL *HI* (12/04/2011 17:45:00) Albumin Lvl [3.5-5.0 g/dL] 3.9 g/dL (12/04/2011 17:45:00) Globulin [2.0-4.0 g/dL] 5.2 g/dL *HI* (12/04/2011 17:45:00) A/G Ratio [0.7-1.6] 0.8 (12/04/2011 17:45:00) Calcium Lvl [8.5-10.5 mg/dL] 8.6 mg/dL (12/07/2011 05:55:00) 9.3 mg/dL (12/05/2011 03:53:00) 9.9 mg/dL (12/04/2011 17:45:00) ALT [0-65 U/L] 29 U/L (12/04/2011 17:45:00) AST [0-37 U/L] 10 U/L (12/04/2011 17:45:00) Alk Phos [39-136 U/L] 108 U/L (12/04/2011 17:45:00) Bili Total [0.2-1.3 mg/dL] 0.3 mg/dL (12/04/2011 17:45:00) Lactic Acid Lvl [0.5-2.2 mMol/L] 1.3 mMol/L (12/04/2011 20:10:00) U Amph Scr [Negative] Negative *NA* (12/04/2011 21:45:00) U Chelsie Scr [Negative] Negative *NA* (12/04/2011 21:45:00) U Benzodia Scr [Negative] Positive *ABN* (12/04/2011 21:45:00) U Cocaine Scr [Negative] Negative *NA* (12/04/2011 21:45:00) U Opiate Scr [Negative] Positive *ABN* (12/04/2011 21:45:00) U Phencyc Scr [Negative] Negative *NA* (12/04/2011 21:45:00) U Cannab Scr [Negative] Positive *ABN* (12/04/2011 21:45:00) UDS Note See Note 6 (12/04/2011 21:45:00) 1Result Comment: Expected eGFR for >20 yr. age group: >=60 ml/min/1.73 sq m The eGFR calculation is not valid in or for persons < 18 years of age. From [employer] Kid[employer] Education [employer] (NKDEP) 2Result Comment: Expected eGFR for >20 yr. age group: >=60 ml/min/1.73 sq m The eGFR calculation is not valid in or for persons < 18 years of age. From National Kid[employer] Education Program (NKDEP) 3Interpretive Data: Adult reference range values reflect the clinical guidelinesof the [place] [employer]. 4Interpretive Data: Adult reference range values reflect the clinical guidelinesof the [place] [employer]. 5Interpretive Data: Adult reference range values reflect the clinical guidelinesof the [place] [employer]. 6Interpretive Data: Drugs reported as positive have not been confirmed by a second method and should be used for medical purposes only. To orderconfirmation, contact laboratory. note: Below are cut-off concentrations for all urine drugs of abuse performed in the laboratory. Some drugs listed in the table may not be included in this panel.Description Cut-off concentration Amphetamine 1000 ng/mLBarbiturates 200 ng/mLBenzodiazepines 300 ng/mLCocaine metabolites 300 ng/mLOpiates 300 ng/mLPhencyclidine 25 ng/mLPropoxyphene 300 ng/mLMarijuana metabolites 50 ng/mLMethadone 300 ng/mLUrine alcohol 20 mg/dL HEMATOLOGY Most recent to oldest [Reference Range]: 1 2 3 WBC [3.7-10.4 K/CMM] 5.5 K/CMM (12/07/2011 05:55:00) 6.6 K/CMM (12/05/2011 03:53:00) 9.0 K/CMM (12/04/2011 17:45:00) RBC [4.70-6.10 M/CMM] 3.82 M/CMM *LOW* (12/07/2011 05:55:00) 4.12 M/CMM *LOW* (12/05/2011 03:53:00) 4.82 M/CMM (12/04/2011 17:45:00) Hgb [14.0-18.0 g/dL] 11.8 g/dL *LOW* (12/07/2011 05:55:00) 13.0 g/dL *LOW* (12/05/2011 03:53:00) 14.9 g/dL (12/04/2011 17:45:00) Hct [42.0-54.0 %] 35.4 % *LOW* (12/07/2011 05:55:00) 38.2 % *LOW* (12/05/2011 03:53:00) 45.1 % (12/04/2011 17:45:00) MCV [80.0-94.0 fL] 92.6 fL (12/07/2011 05:55:00) 92.8 fL (12/05/2011 03:53:00) 93.5 fL (12/04/2011 17:45:00) MCH [27.0-31.0 pg] 31.0 pg (12/07/2011 05:55:00) 31.6 pg *HI* (12/05/2011 03:53:00) 30.9 pg (12/04/2011 17:45:00) MCHC [32.0-36.0 g/dL] 33.5 g/dL (12/07/2011 05:55:00) 34.1 g/dL (12/05/2011 03:53:00) 33.1 g/dL (12/04/2011 17:45:00) RDW [11.5-14.5 %] 15.0 % *HI* (12/07/2011 05:55:00) 14.9 % *HI* (12/05/2011 03:53:00) 15.0 % *HI* (12/04/2011 17:45:00) Platelet [133-450 K/CMM] 195 K/CMM (12/07/2011 05:55:00) 233 K/CMM (12/05/2011 03:53:00) 273 K/CMM (12/04/2011 17:45:00) MPV [7.4-10.4 fL] 8.3 fL (12/07/2011 05:55:00) 9.0 fL (12/05/2011 03:53:00) 8.4 fL (12/04/2011 17:45:00) Segs [45.0-75.0 %] 43.1 % *LOW* (12/07/2011 05:55:00) 56.6 % (12/05/2011 03:53:00) 78.6 % *HI* (12/04/2011 17:45:00) Lymphocytes [20.0-40.0 %] 41.8 % *HI* (12/07/2011 05:55:00) 31.4 % (12/05/2011 03:53:00) 14.6 % *LOW* (12/04/2011 17:45:00) Monocytes [2.0-12.0 %] 8.8 % (12/07/2011 05:55:00) 9.3 % (12/05/2011 03:53:00) 6.5 % (12/04/2011 17:45:00) Eosinophils [0.0-4.0 %] 5.5 % *HI* (12/07/2011 05:55:00) 2.0 % (12/05/2011 03:53:00) 0.2 % (12/04/2011 17:45:00) Basophils [0.0-1.0 %] 0.8 % (12/07/2011 05:55:00) 0.7 % (12/05/2011 03:53:00) 0.1 % (12/04/2011 17:45:00) Segs-Bands # [1.5-8.1 K/CMM] 2.4 K/CMM (12/07/2011 05:55:00) 3.8 K/CMM (12/05/2011 03:53:00) 7.0 K/CMM (12/04/2011 17:45:00) Lymphocytes # [1.0-5.5 K/CMM] 2.3 K/CMM (12/07/2011 05:55:00) 2.1 K/CMM (12/05/2011 03:53:00) 1.3 K/CMM (12/04/2011 17:45:00) Monocytes # [0.0-0.8 K/CMM] 0.5 K/CMM (12/07/2011 05:55:00) 0.6 K/CMM (12/05/2011 03:53:00) 0.6 K/CMM (12/04/2011 17:45:00) Eosinophils # [0.0-0.5 K/CMM] 0.3 K/CMM (12/07/2011 05:55:00) 0.1 K/CMM (12/05/2011 03:53:00) 0.0 K/CMM (12/04/2011 17:45:00) Basophils # [0.0-0.2 K/CMM] 0.0 K/CMM (12/05/2011 03:53:00) Polychrom [None Seen] Slight (12/05/2011 03:53:00) Neut Vac [None Seen] Slight *ABN* (12/05/2011 03:53:00) Plt Morph Normal (12/05/2011 03:53:00) Microbiology Reports PROCEDURE:Culture: Stool STATUS: Auth (Verified) BODY SITE: COLLECTED DATE/TIME: 12/07/2011 06:10:00 SOURCE: Stool FREE TEXT SOURCE: FINAL REPORTS Final Report Normal Enteric Joanie Isolated . No Salmonella, Shigella, Or Campylobacter Isolat ed PRELIMINARY REPORTS Preliminary Report Normal Enteric Joanie Isolated Preliminary Report Normal Enteric Joanie Isolated . No Salmonella Or Shigella Isolated PROCEDURE:Culture: Blood STATUS: Auth (Verified) BODY SITE: RAC COLLECTED DATE/TIME: 12/04/2011 20:10:00 SOURCE: Blood FREE TEXT SOURCE: FINAL REPORTS Final Report No Growth At 5 Days PRELIMINARY REPORTS Preliminary Report No Growth; Holding Preliminary Report No Growth At 4 Days Preliminary Report No Growth At 2 Days Preliminary Report No Growth At 3 Days Preliminary Report No Growth At 1 Day PROCEDURE:Culture: Blood STATUS: Auth (Verified) BODY SITE: Hand R COLLECTED DATE/TIME: 12/04/2011 20:10:00 SOURCE: Blood FREE TEXT SOURCE: FINAL REPORTS Final Report No Growth At 5 Days PRELIMINARY REPORTS Preliminary Report No Growth; Holding Preliminary Report No Growth At 3 Days Preliminary Report No Growth At 1 Day Preliminary Report No Growth At 2 Days Preliminary Report No Growth At 4 Days PROCEDURE:Culture: Urine STATUS: Auth (Verified) BODY SITE: COLLECTED DATE/TIME: 12/04/2011 17:45:00 SOURCE: Urine, [place] FREE TEXT SOURCE: FINAL REPORTS Final Report 10,000 - 50,000 CFU/mL Yeast PRELIMINARY REPORTS Preliminary Report No Growth; Holding"
--- OUTSIDE RECORDS SUMMARY | 2020-03-18 10:19 | XMS REPORT | CCD ---
Author Author MAXIMO Muse [facility] Address Unknown Phone Unavailable Care Team Providers Care Superintendent Commissary Name Role Phone Guido Samuels CP Allergies, Adverse Reactions, Alerts Substance Reaction [...] Medication Instructions Start Date End Date Status Merrem 500 mg, Route: IV, Q8H, Start date: 12/23/2011 Discontinued 12/23/11 9:00:00, Duration: 30 day, Stop date: 01/22/12 1:00:00 Sodium Chloride 0.9% 1,000 mL, Rate: 75 ml/hr, Infuse 12/23/2011 12/28/2011 Discontinued IV 1,000 mL 1,000 mL over: 13.3 hr, Route: IV, D osing Weight 56.818 kg, Total Volume: 1,000, Start date: 12/23/11 1:17:00, Duration: 30 day, Stop date: 01/22/12 1:16:00 Saline Flush 0.9% 10 ml, Route: IVP, Drug Form: INJ, 12/23/2011 12/28/2011 Discontinued PRN, PRN Line Flush, Start date: 12/23/11 1:17:00, Duration: 30 day, Stop date: 01/22/12 1:16:00 Dilaudid 1 mg, 0.5 mL, Route: IV, Drug form: 12/24/2011 Discontinued INJ, Q3H, PRN Pain, Start date: 12/24/11 13:47:00, Duration: 30 day, Stop date: 01/23/12 13:46:00 naloxone 0.04 mg, 0.1 mL, Route: IVP, Drug 12/27/201112/27 Discontinued form: INJ, Q2MIN, PRN Narcotic Reversal, Start date: 12/27/11 14:25:00, Duration: 8 doses or times, Stop date: Limited # of times ondansetron 4 mg, 2 mL, Route: IVP, Drug form: 12/27/201112/03 Discontinued INJ, ONCE, PRN Nausea & Vomiting, Start date: 12/27/11 14:25:00 flumazenil 0.2 mg, 2 mL, Route: IVP, Drug 12/27/2011 12/28/19 Discontinued form: INJ, PRN, PRN Benzodiazepine Reversal, Initial dose, Start date: 12/27/11 14:25:00, Duration: 30 day, Stop date: 01/26/12 14:24:00 meperidine 12.5 mg, 0.25 mL, Route: IVP, Drug 12/27/201112/03 Completed form: INJ, Q30Min, PRN Other -See Comment, For shivering, Start date: 12/27/11 14:25:00, Duration: 2 doses or times, Stop date: Limited # of times Dilaudid 1 mg, 0.5 mL, Route: IV, Drug form: 12/27/2011 Completed INJ, ONCE, Start date: 12/27/11 15:12:00, Stop date: 12/27/11 15:12:00 Dilaudid 1 mg, 0.5 mL, Route: IV, Drug form: 12/27/2011 Completed INJ, ONCE, Start date: 12/27/11 15:12:00, Stop date: 12/27/11 15:12:00 morphine Sulfate 2 mg, 1 mL, Route: IV, Drug form: 12/23/2011 12/24/2011 Discontinued INJ, Q3H, PRN Pain, Start date: 12/23/11 9:41:00, Duration: 30 day, Stop date: 01/22/12 9:40:00 Phenergan 12.5 mg, 0.5 mL, Route: IVPB, Q4H, 12/24/201112/03 Discontinued PRN Nausea & Vomiting, Start date: 12/24/11 19:08:00, Stop date: 01/23/12 19:07:00 Prevacid 30 mg, Route: PO, Drug form: DRC, 12/24/201112/22 Deleted Daily, Start date: 12/24/11 9:00:00, Duration: 30 day, Stop date: 01/22/12 9:00:00 Demerol HCl 12.5 mg, 0.25 mL, Route: IVP, Drug 12/27/201112/03 Completed form: INJ, ONCE, Start date: 12/27/11 14:48:00, Stop date: 12/27/11 14:48:00 lactobacillus Route: PO, Drug Form: TAB, BID, 12/23/201112/27 Discontinued acidophilus and Start date: 12/23/11 17:00: 00, bulgaricus Duration: 30 day, Stop date : 01/22/12 9:00:00 Flagyl 500 mg, 1 tab, Route: PO, Drug 12/23/2011 12/28/19 Discontinued form: TAB, [id number], Start date: 12/23/11 12:00:00, Duration: 30 day, Stop date: 01/22/12 4:00:00 Demerol HCl 12.5 mg, Route: IVP, ONCE, Start 12/27/20112011 Completed date: 12/27/11 14:48:00, Stop date: 12/27/11 14:48:00 cholestyramine 4 gm, 1 pkt, Route: PO, Drug form: 12/24/2011 0 12/28/2011 Discontinued PDR/REC, Daily, Start date: 12/24/11 9:00:00, Duration: 30 day, Stop date: 01/22/12 9:00:00 Xanax 2 mg oral 2 mg, 2 tab, Route: PO, Drug form: 12/23/2011 12/28/2011 Discontinued tablet TAB, BID, PRN as needed for anxiety, Start date: 12/23/11 11:05:00, Duration: 30 day, Stop date: 01/22/12 11:04:00 Juda 10/325 oral 1 tab, Route: PO, Drug Form: TAB, 12/23/2011 12/28/2011 Discontinued tablet Q4H, PRN Pain, Start date: 12/23/11 11:05:00, Duration: 30 day, Stop date: 01/22/12 11:04:00 Diflucan 200 mg, 2 tab, Route: PO, Drug 12/26/2011 12/28/19 12 Discontinued form: TAB, Daily, Start date: 12/26/11 9:00:00, Duration: 30 day, Stop date: 01/24/12 9:00:00 Maxipime 1 gm, Route: IVPB, Q12H, Start 12/25/2011 12/28/19 12 Discontinued date: 12/25/11 20:00:00, Duration: 30 day, Stop date: 01/24/12 8:00:00 Zofran 4 mg, 2 mL, Route: IVP, Drug form: 12/23/201112/03 Discontinued INJ, Q8H, PRN Nausea, Start date: 12/23/11 11:03:00, Duration: 30 day, Stop date: 01/22/12 11:02:00 ondansetron 4 mg, 2 mL, Route: IVP, Drug form: 12/27/201112/03 Discontinued INJ, ONCE, PRN Nausea & Vomiting, Start date: 12/27/11 14:32:00 midazolam 2 mg, 2 mL, Route: IVP, Drug form: 12/27/201112/03 Discontinued INJ, Q5Min, PRN Anxiety, Start date: 12/27/11 14:32:00, Duration: 2 doses or times, Stop date: Limited # of times promethazine 6.25 mg, 0.25 mL, Route: IVPB, 12/27/2011 012 Discontinued ONCE, PRN Nausea & Vomiting, Start date: 12/27/11 14:32:00 naloxone 0.04 mg, 0.1 mL, Route: IVP, Drug 12/27/201112/27 Discontinued form: INJ, Q2MIN, PRN Narcotic Reversal, Start date: 12/27/11 14:32:00, Duration: 8 doses or times, Stop date: Limited # of times meperidine 12.5 mg, 0.25 mL, Route: IVP, Drug 12/27/201112/03 Discontinued form: INJ, Q30Min, PRN Other -See Comment, For shivering, Start date: 12/27/11 14:32:00, Duration: 2 doses or times, Stop date: Limited # of times flumazenil 0.2 mg, 2 mL, Route: IVP, Drug 12/27/2011 12/28/19 Discontinued form: INJ, PRN, PRN Benzodiazepine Reversal, Initial dose, Start date: 12/27/11 14:32:00, Duration: 30 day, Stop date: 01/26/12 14:31:00 Ditropan XL 15 mg, 3 tab, Route: PO, Drug form: 12/27/2011 Discontinued ERTAB, Daily, Start date: 12/27/11 9:00:00, Duration: 30 day, Stop date: 01/25/12 9:00:00 Protonix 40 mg, 1 tab, Route: PO, Drug form: 12/23/2011 Discontinued ECTAB, Before Dinner, Start date: 12/23/11 16:30:00, Duration: 30 day, Stop date: 01/21/12 16:30:00 Sodium Chloride 0.9% 1,000 mL, Rate: 1,000 ml/hr, Infuse 12/0312/22/2011 Completed (Bolus) IV 1,000 mL over: 1 hr, Route: IV, Alia ng Weight 56.818 kg, Total Volume: 1,000, Bolus dose, Priority: STAT, Start date: 12/22/11 21:46:00, Duration: 1 doses or times, Stop date: 12/22/11 22:45:00 Saline Flush 0.9% 5 ml, Route: IVP, Drug Form: INJ, 12/22/2011 12/23/2011 Completed PRN, PRN Line Flush, Start date: 12/22/11 21:46:00, Duration: 24 hr, Stop date: 12/23/11 21:45:00 famotidine 20 mg, 2 mL, Route: IVP, Drug form: 12/22/2011 Completed INJ, ONCE, Priority: STAT, Start date: 12/22/11 21:46:00, Stop date: 12/22/11 21:46:00 ondansetron 4 mg, 2 mL, Route: IVP, Drug form: 12/22/201112/03 Completed INJ, ONCE, Priority: STAT, Start date: 12/22/11 21:46:00, Stop date: 12/22/11 21:46:00 morphine Sulfate 4 mg, 1 mL, Route: IVP, Drug form: 12/22/2011 12/22/2011 Completed INJ, ONCE, Priority: STAT, Start date: 12/22/11 21:46:00, Stop date: 12/22/11 21:46:00 Diflucan 200 mg, 100 mL, Route: IVPB, Drug 12/23/201112/24 Discontinued form: INJ, [id number], Start date: 12/23/11 12:00:00, Duration: 30 day, Stop date: 01/21/12 12:00:00 Vital Signs Most recent to oldest [Reference Range]: 1 2 3 Height 182.88 cm (12/23/2011 02:26:00) 152.40 cm (12/22/2011 18:03:00) Temperature Oral [96.4-99.1 DegF] 97.0 DegF (12/28/2011 08:00:00) 98.5 DegF (12/27/2011 20:00:00) 97.8 DegF (12/27/2011 17:00:00) Systolic Blood Pressure [90-140 mmHg] 119 mmHg (12/28/2011 08:00:00) 134 mmHg (12/27/2011 20:00:00) 162 mmHg *HI* (12/27/2011 17:00:00) Diastolic Blood Pressure [60-90 mmHg] 75 mmHg (12/28/2011 08:00:00) 86 mmHg (12/27/2011 20:00:00) 91 mmHg *HI* (12/27/2011 17:00:00) Respiratory Rate [14-20 BRMIN] 16 BRMIN (12/28/2011 08:00:00) 18 BRMIN (12/27/2011 20:00:00) 18 BRMIN (12/27/2011 17:00:00) Peripheral Pulse Rate [60-100 bpm] 52 bpm *LOW* (12/28/2011 08:00:00) 98 bpm (12/27/2011 20:00:00) 46 bpm *LOW* (12/27/2011 17:00:00) Weight 61.932 kg (12/23/2011 02:26:00) 56.818 kg (12/22/2011 18:03:00) Results URINALYSIS Most recent to oldest [Reference Range]: 1 2 UA Turbidity [Clear] Marked *ABN* (12/22/2011 23:25:00) UA Color [Yellow] Red *ABN* (12/22/2011 23:25:00) UA pH [5.0-8.0] 6.0 (12/22/2011 23:25:00) UA Spec Grav [<=1.030] 1.046 *HI* (12/22/2011 23:25:00) UA Glucose [Negative mg/dL] Negative mg/dL *NA* (12/22/2011 23:25:00) UA Blood [Negative] Large *ABN* (12/22/2011 23:25:00) UA Ketones +2 mg/dL *NA* (12/22/2011 23:25:00) UA Protein [Negative mg/dL] 200 mg/dL *ABN* (12/22/2011 23:25:00) UA Urobilinogen [0.1-1.0 mg/dL] <=1.0 mg/dL *NA* (12/22/2011 23:25:00) UA Bili [Negative] Negative *NA* (12/22/2011 23:25:00) UA Leuk Est [Negative] Large *ABN* (12/22/2011 23:25:00) UA Nitrite [Negative] Negative (12/22/2011 23:25:00) UA WBC [0-5 /HPF] >182 /HPF *HI* (12/22/2011 23:25:00) UA RBC [0-2 /HPF] >182 /HPF *HI* (12/22/2011 23:25:00) UA Bacteria [None Seen /HPF] Occasional /HPF *NA* (12/22/2011 23:25:00) UA Sq Epi None Seen *NA* (12/22/2011 23:25:00) UA Mucus [None Seen /LPF] Few /LPF *NA* (12/22/2011 23:25:00) UA [place] Yeast [None Seen /HPF] Few /HPF *ABN* (12/22/2011 23:25:00) Micro? Performed (12/22/2011 23:25:00) CHEMISTRY Most recent to oldest [Reference Range]: 1 2 Sodium Lvl [135-145 mEq/L] 140 mEq/L (12/24/2011 03:00:00) 139 mEq/L (12/22/2011:28:00) Potassium Lvl [3.5-5.1 mEq/L] 3.5 mEq/L (12/24/2011 03:00:00) 3.6 mEq/L (12/22/2011:28:00) Chloride Lvl [95-109 mEq/L] 108 mEq/L (12/24/2011 03:00:00) 105 mEq/L (12/22/2011:28:00) CO2 [24-32 mEq/L] 22 mEq/L *LOW* (12/24/2011 03:00:00) 24 mEq/L (12/22/2011:28:00) AGAP [10.0-20.0 mEq/L] 13.5 mEq/L (12/24/2011 03:00:00) 13.6 mEq/L (12/22/2011:28:00) Creatinine Lvl [0.5-1.4 mg/dL] 0.6 mg/dL (12/24/2011 03:00:00) 0.8 mg/dL (12/22/2011:28:00) BUN [7-22 mg/dL] 10 mg/dL (12/24/2011 03:00:00) 14 mg/dL (12/22/2011:28:00) B/C Ratio [6-25] 18 (12/22/2011 21:28:00) Glucose Lvl [70-99 mg/dL] 76 mg/dL 1 (12/24/2011 03:00:00) 95 mg/dL 2 (12/22/2011:28:00) Total Protein [6.4-8.4 g/dL] 8.1 g/dL (12/22/2011::00) Albumin Lvl [3.5-5.0 g/dL] 3.7 g/dL (12/22/2011:28:00) Globulin [2.0-4.0 g/dL] 4.4 g/dL *HI* (12/22/2011::00) A/G Ratio [0.7-1.6] 0.8 (12/22/2011::00) Calcium Lvl [8.5-10.5 mg/dL] 8.9 mg/dL (12/24/2011 03:00:00) 9.3 mg/dL (12/22/2011::00) ALT [0-65 U/L] 18 U/L (12/22/2011::00) AST [0-37 U/L] 14 U/L (12/22/2011::00) Alk Phos [39-136 U/L] 78 U/L (12/22/2011::00) Bili Total [0.2-1.3 mg/dL] 0.2 mg/dL (12/22/2011::00) Amylase Lvl [25-115 U/L] 31 U/L (12/22/2011::00) Lipase Lvl [73-393 U/L] 40 U/L *LOW* (12/22/2011::00) 1Interpretive Data: Adult reference range values reflect the clinical guidelinesof the [place] [employer]. 2Interpretive Data: Adult reference range values reflect the clinical guidelinesof the [place] [employer]. HEMATOLOGY Most recent to oldest [Reference Range]: 1 2 WBC [3.7-10.4 K/CMM] 6.0 K/CMM (12/24/2011 03:00:00) 9.2 K/CMM (12/22/201128:00) RBC [4.70-6.10 M/CMM] 3.76 M/CMM *LOW* (12/24/2011 03:00:00) 4.40 M/CMM *LOW* (12/22/2011 21:28:00) Hgb [14.0-18.0 g/dL] 12.0 g/dL *LOW* (12/24/2011 03:00:00) 13.9 g/dL *LOW* (12/22/2011:28:00) Hct [42.0-54.0 %] 34.8 % *LOW* (12/24/2011 03:00:00) 40.5 % *LOW* (12/22/2011:28:00) MCV [80.0-94.0 fL] 92.6 fL (12/24/2011 03:00:00) 92.1 fL (12/22/2011:28:00) MCH [27.0-31.0 pg] 31.9 pg *HI* (12/24/2011 03:00:00) 31.5 pg *HI* (12/22/2011:28:00) MCHC [32.0-36.0 g/dL] 34.4 g/dL (12/24/2011 03:00:00) 34.3 g/dL (12/22/2011:28:00) RDW [11.5-14.5 %] 14.7 % *HI* (12/24/2011 03:00:00) 14.7 % *HI* (12/22/2011:28:00) Platelet [133-450 K/CMM] 199 K/CMM (12/24/2011 03:00:00) 299 K/CMM (12/22/2011:28:00) MPV [7.4-10.4 fL] 8.8 fL (12/24/2011 03:00:00) 8.3 fL (12/22/2011:28:00) Segs [45.0-75.0 %] 54.9 % (12/24/2011 03:00:00) 51.4 % (12/22/2011:28:00) Lymphocytes [20.0-40.0 %] 34.9 % (12/24/2011 03:00:00) 39.3 % (12/22/2011:28:00) Monocytes [2.0-12.0 %] 7.6 % (12/24/2011 03:00:00) 6.9 % (12/22/2011 21:28:00) Eosinophils [0.0-4.0 %] 2.3 % (12/24/2011 03:00:00) 1.9 % (12/22/2011 21:28:00) Basophils [0.0-1.0 %] 0.3 % (12/24/2011 03:00:00) 0.5 % (12/22/2011 21:28:00) Segs-Bands # [1.5-8.1 K/CMM] 3.3 K/CMM (12/24/2011 03:00:00) 4.7 K/CMM (12/22/2011 21:28:00) Lymphocytes # [1.0-5.5 K/CMM] 2.1 K/CMM (12/24/2011 03:00:00) 3.6 K/CMM (12/22/2011 21:28:00) Monocytes # [0.0-0.8 K/CMM] 0.5 K/CMM (12/24/2011 03:00:00) 0.6 K/CMM (12/22/2011 21:28:00) Eosinophils # [0.0-0.5 K/CMM] 0.1 K/CMM (12/24/2011 03:00:00) 0.2 K/CMM (12/22/2011 21:28:00) Basophils # [0.0-0.2 K/CMM] 0.0 K/CMM (12/24/2011 03:00:00) 0.0 K/CMM (12/22/2011 21:28:00) RBC Morph Normal (12/24/2011 03:00:00) Plt Morph Normal (12/24/2011 03:00:00) PT [12.0-14.7 seconds] 12.4 seconds (12/26/2011 12:25:00) INR [0.85-1.17] 0.92 3 (12/26/2011 12:25:00) PTT [22.9-35.8 seconds] 28.5 seconds 4 (12/26/2011 12:25:00) 3Interpretive Data: RECOMMENDED RANGES FOR PROTIME INR: 2.0-3.0 for most medical and surgical thromboembolic states. 2.5-3.5 for artificial heart valves and recurrent embolism.INR SHOULD BE USED ONLY FOR PATIENTS ON STABLE ANTICOAGULANT THERAPY. 4Interpretive Data: Heparin Therapeutic Range: 57 - 92 Seconds Microbiology Reports PROCEDURE:Culture: Urine STATUS: Auth (Verified) BODY SITE: COLLECTED DATE/TIME: 12/22/2011 23:25:00 SOURCE: Urine, Clean Catch FREE TEXT SOURCE: FINAL REPORTS Final Report 50,000 - 100,000 CFU/mL Escherichia coli . 50,000 - 100,000 CFU/mL Yeast PRELIMINARY REPORTS Preliminary Report No Growth; Holding Preliminary Report 50,000 - 100,000 CFU/mL Escherichia coli Sensitivity Pending . 50,000 - 100,000 CFU/mL Yeast SUSCEPTIBILITY REPORT EC Antibiotic INTERP. VDIL Amikacin S Ampicillin R Ampicillin/Sulbactam R Aztreonam S Cefazolin R Cefepime S Ceftriaxone S Ciprofloxacin R ESBL Confirmation - Ertapenem S Gentamicin S Levofloxacin R Meropenem S Nitrofurantoin S Tetracycline S Tigecycline S Tobramycin S Trimethoprim/Sulfamethoxazole R
--- OUTSIDE RECORDS SUMMARY | 2020-03-18 10:19 | XMS REPORT | CCD ---
Author Author MAXIMO [facility] Address Unknown Phone Unavailable Care Team Providers Care In Flight Technician Name Role Phone Lalo Maddie CP Unavailable Eula Kimball RP ChartServer, Login CP Unavailable Noy Sharma CP Unavailable Terese Salinas CP [phone] SYSTEM, SYSTEM CP Unavailable Jeff Casarez CP [phone] Allergies, Adverse Reactions, Alerts Substance Reaction Status NKDA ?? Active Problem List Condition Effective Dates Status Acinetobacter1 ?? Active 1Problem added by Discern Expert. Medications Medication Instructions Start Date End Date Status Xanax 2 mg oral 1 tab, PO, BID, PRN, Anxiety, 04/18/2011 ?? Ordered tablet Substitution Allowed Soma 350 mg oral 1 tab, PO, TID, 21 tab, 04/18/2011 ?? Ordered tablet Substitution Allowed, TAB [place] 5/325 oral 1 tab, PO, Q4H, PRN, for pain, 04/18/2011 ?? Ordered tablet Substitution Allowed, Maint enance, TAB [place] 10/325 oral 1-2 tab, PO, Q4-6H, PRN, 30 tab, 04/18/2011 04/23/2011 Ordered tablet Pain, Substitution Allowed, Maintenance Vital Signs Most recent to oldest [Reference Range]: 1 Height 182.88 cm (04/18/2011 15:35:00) ?? Temperature Oral [96.4-99.1 DegF] 98.3 DegF (04/18/2011 15:35:00) ?? Systolic Blood Pressure [90-140 mmHg] 127 mmHg (04/18/2011 15:35:00) ?? Diastolic Blood Pressure [60-90 mmHg] 88 mmHg (04/18/2011 15:35:00) ?? Peripheral Pulse Rate [60-100 bpm] 16 bpm *LOW* (04/18/2011 15:35:00) ?? Weight 76.364 kg (04/18/2011 15:35:00) ??
--- OUTSIDE RECORDS SUMMARY | 2020-03-18 10:19 | XMS REPORT | CCD ---
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 3MDRO, URINE, 11/06/2011 4Problem added by Discern Expert. Medications Medication Instructions Start Date End Date Status lidocaine topical 5% 1 patch, Route: TOP, Daily, Drug 11/08/2011 11/12/2011 Discontinued film (patch) form: FILM, Start date: 01/13 15:58:00, Duration: 30 day, Stop date: 12/08/11 9:00:00 aluminum 30 mL, Route: PO, Drug Form: SUSP, 11/07/201111/02 Discontinued hydroxide-magnesium Q6H, PRN See Nurse's Notes, Start hydroxide 200 mg-200 date: 11/07/11 14:34:00, Du ration: mg/5 mL oral 30 day, Stop date: 12/07/11 suspension 14:33:00 baclofen 10 mg, 1 tab, Route: PO, Drug form: 11/07/201105/2012 Discontinued TAB, BID, Start date: 11/07/11 17:00:00, Duration: 30 day, Stop date: 12/07/11 9:00:00 acetaminophen-hydroc 1 tab, Route: PO, Drug Form: TAB, 201111/12/2011 Discontinued odone 325 mg-10 mg Q4H, PRN Pain, Start date: 11/07/11 oral tablet 12:05:00, Duration: 30 day, Stop date: 12/07/11 12:04:00 Saline Flush 0.9% 5 ml, Route: IVP, Drug Form: INJ, 11/06/2011 11/06/2011 Discontinued PRN, PRN Line Flush, Start date: 11/06/11 21:07:00, Duration: 24 hr, Stop date: 11/07/11 21:06:00 Sodium Chloride 0.9% 1,000 mL, Rate: 125 ml/hr, Infuse 201111/07/2011 Discontinued IV 1,000 mL over: 8 hr, Route: IV, Dosi ng Weight 74.6 kg, Total Volume: 1,000, Start date: 11/06/11 21:07:00, Duration: 30 day, Stop date: 12/06/11 21:06:00 ondansetron 4 mg, 2 mL, Route: IVP, Drug form: 11/06/2011 0411/2011 Completed INJ, ONCE, Priority: STAT, Start date: 11/06/11 21:07:00, Stop date: 11/06/11 21:07:00 Duricef 500 mg, 1 cap, Route: PO, Drug 11/07/2011 11/07/19 Discontinued form: CAP, Q12H, Start date: 11/07/11 21:00:00, Duration: 30 day, Stop date: 12/07/11 9:00:00 morphine Sulfate 2 mg, 0.4 mL, Route: IV, Drug form: 11/07/2011 11/12/2011 Discontinued INJ, Q4H, PRN Pain, Start date: 11/07/11 14:25:00, Duration: 30 day, Stop date: 12/07/11 14:24:00 Sodium Chloride 0.9% 250 mL, Route: IVPB, Start date: 11/06/2011 11/12/2011 Discontinued IV 11/06/11 21:17:00, Duration : 30 day, Stop date: 12/06/11 21:16:00, PRN Line Flush BD Normal Saline 10 mL, Route: IVP, Drug Form: INJ, 11/06/2011 11/12/2011 Discontinued Flush PRN, PRN Line Flush, Start date: 11/06/11 21:17:00, Duration: 30 day, Stop date: 12/06/11 21:16:00 Zyvox 600 mg, 1 tab, Route: PO, Drug 11/07/2011 11/07/19 Discontinued form: TAB, BID, Start date: 11/07/11 17:00:00, Duration: 30 day, Stop date: 12/07/11 9:00:00 Celexa 20 mg, 1 tab, Route: PO, Drug form: 11/08/201105/2012 Discontinued TAB, QAM, Start date: 11/08/11 9:00:00, Duration: 30 day, Stop date: 12/07/11 9:00:00 tramadol 50 mg oral 100 mg, 2 tab, Route: PO, Drug 11/07/2011 11/12/2011 Discontinued tablet form: TAB, Q4H, PRN Pain, S tart date: 11/07/11 19:44:00, Duration: 30 day, Stop date: 12/07/11 19:43:00 tramadol 50 mg oral 50 mg, 1 tab, Route: PO, Drug form: 11/0611/12/2011 Discontinued tablet TAB, Q4H, PRN Pain, Start d ate: 11/07/11 19:43:00, Duration: 30 day, Stop date: 12/07/11 19:42:00 Zofran 4 mg, Route: IVP, Drug form: INJ, 11/07/201111/06 Completed ONCE, Priority: STAT, Start date: 11/07/11 0:53:00, Stop date: 11/07/11 0:53:00 morphine 5 mg/mL 5 mg, Route: IV, ONCE, Start date: 11/07/2011 11/07/2011 Completed preservative-free 11/07/11 0:53:00, Stop date : injectable solution 11/07/11 0:53:00 Robaxin 1,000 mg, 10 mL, Route: IVPB, 11/08/2011 2 Completed Daily, Start date: 11/08/11 9:00:00, Duration: 3 day, Stop date: 11/10/11 9:00:00 Cipro 500 mg, 1 tab, Route: PO, Drug 11/08/2011 11/07/19 12 Discontinued form: TAB, Daily, Start date: 11/08/11 9:00:00, Duration: 30 day, Stop date: 12/07/11 9:00:00 Norvasc 5 mg, 1 tab, Route: PO, Drug form: 11/08/201112/2011 Discontinued TAB, Daily, Start date: 11/08/11 9:00:00, Duration: 30 day, Stop date: 12/07/11 9:00:00 Xanax 2 mg, 2 tab, Route: PO, Drug form: 11/08/201111/02 Discontinued TAB, BID, Start date: 11/08/11 9:00:00, Duration: 30 day, Stop date: 12/07/11 17:00:00 Invanz 1 gm, Route: IVPB, Q24H, Start 11/10/2011 11/11/19 12 Discontinued date: 11/10/11 9:00:00, Duration: 30 day, Stop date: 12/09/11 9:00:00 Questran 4 gm, 1 pkt, Route: PO, Drug form: 11/07/201112/2011 Discontinued PDR/REC, Q6H, Start date: 11/07/11 12:00:00, Duration: 30 day, Stop date: 12/07/11 6:00:00 loperamide 2 mg, 1 cap, Route: PO, Drug form: 11/07/201111/02 Discontinued CAP, Q6H, PRN Diarrhea, Start date: 11/07/11 20:08:00, Duration: 30 day, Stop date: 12/07/11 20:07:00 Protonix 40 mg, 1 tab, Route: PO, Drug form: 11/07/201105/2012 Discontinued ECTAB, Before Dinner, Start date: 11/07/11 16:30:00, Duration: 30 day, Stop date: 12/06/11 16:30:00 Lopressor 50 mg, 1 tab, Route: PO, Drug form: 11/07/201112/2011 Discontinued TAB, BID, Start date: 11/07/11 11:40:00, Duration: 30 day, Stop date: 12/07/11 9:00:00 Neurontin 300 mg, 1 cap, Route: PO, Drug 11/07/2011 11/12/19 12 Discontinued form: CAP, Daily, Start date: 11/07/11 11:39:00, Duration: 30 day, Stop date: 12/07/11 9:00:00 loperamide 2 mg, 1 cap, Route: PO, Drug form: 11/07/2011 040 12/2011 Completed CAP, ONCE, Start date: 11/07/11 19:09:00, Stop date: 11/07/11 19:09:00 chlordiazepoxide 25 50 mg, 2 cap, Route: PO, Drug form: 11/0611/12/2011 Discontinued mg oral capsule CAP, Q6H, PRN Agitation, St art date: 11/07/11 19:09:00, Duration: 30 day, Stop date: 12/07/11 19:08:00 ketorolac 30 mg/mL 30 mg, 1 mL, Route: IV, Drug form: 11/08/2011 11/09/2011 Completed injectable solution INJ, Q6H, Start date: 11/07 0:00:00, Duration: 48 hr, Stop date: 11/09/11 18:00:00 baclofen 10 mg, 1 tab, Route: PO, Drug form: 11/07/201112/2011 Discontinued TAB, Daily, Start date: 11/07/11 11:39:00, Duration: 30 day, Stop date: 12/07/11 9:00:00 acetaminophen-hydroc 1 tab, Route: PO, Drug Form: TAB, 201111/12/2011 Discontinued odone 325 mg-5 mg Q4H, PRN Pain, Start date: 11/07/11 oral tablet 11:39:00, Duration: 30 day, Stop date: 12/07/11 11:38:00 Zofran 4 mg, 2 mL, Route: IVP, Drug form: 11/07/201111/02 Discontinued INJ, Q4H, PRN Nausea & Vomiting, Start date: 11/07/11 4:36:00, Duration: 30 day, Stop date: 12/07/11 4:35:00 Tylenol 650 mg, 2 tab, Route: PO, Drug 11/07/2011 11/12/19 12 Discontinued form: TAB, Q4H, PRN Pain, Start date: 11/07/11 4:36:00, Duration: 30 day, Stop date: 12/07/11 4:35:00 Rocephin 1 gm, Route: IVPB, Q24H, Start 11/08/2011 11/11/19 12 Discontinued date: 11/08/11 1:00:00, Duration: 30 day, Stop date: 12/07/11 1:00:00 D5W 1/2NS + KCL 1,000 mL, Rate: 100 ml/hr, Infuse 11/07/2011 0 11/07/2011 Discontinued 20mEq/L 1000ml over: 10 hr, Route: IV, Dos ing (Premix) 1,000 mL Weight 74.6 kg, Total Volum e: 1,000, Start date: 11/07/11 4:35:00, Duration: 30 day, Stop date: 12/07/11 4:34:00 Xanax 2 mg, 2 tab, Route: PO, Drug form: 11/07/2011 0412/2011 Discontinued TAB, BID, Start date: 11/07/11 11:39:00, Duration: 30 day, Stop date: 12/07/11 9:00:00 Dolophine 40 mg, 4 tab, Route: PO, Drug form: 11/07/201112/2011 Discontinued TAB, BID, Start date: 11/07/11 11:39:00, Duration: 30 day, Stop date: 12/07/11 9:00:00 Diflucan 200 mg, 2 tab, Route: PO, Drug 11/07/2011 11/11/19 12 Discontinued form: TAB, Daily, Start date: 11/07/11 20:52:00, Duration: 30 day, Stop date: 12/07/11 9:00:00 Lovenox 40 mg, 0.4 mL, Route: SUB-Q, Drug 11/07/201111/11 Discontinued form: INJ, [id number], Start date: 11/07/11 15:00:00, Duration: 30 day, Stop date: 12/06/11 15:00:00 D5W 1/2NS + KCL 1,000 mL, Rate: 125 ml/hr, Infuse 11/07/2011 0 11/12/2011 Discontinued 20mEq/L 1000ml over: 8 hr, Route: IV, Dosi ng (Premix) 1,000 mL Weight 62 kg, Total Volume: 1,000, Start date: 11/07/11 18:30:00, Duration: 30 day, Stop date: 12/07/11 18:29:00 D5W 1/2NS + KCL 1,000 mL, Rate: 250 ml/hr, Infuse 11/07/2011 0 11/07/2011 Completed 20mEq/L 1000ml over: 4 hr, Route: IV, Dosi ng (Premix) 1,000 mL Weight 62 kg, Total Volume: 1,000, Start date: 11/07/11 14:28:00, Duration: 1 doses or times, Stop date: 11/07/11 18:27:00 sulfamethoxazole-tri 1 tab, Route: PO, Drug Form: TAB, 201111/12/2011 Discontinued methoprim 800 mg-160 Q12H, Start date: 11/11/11 mg oral tablet 21:00:00, Duration: 10 day, Stop date: 11/21/11 9:00:00 Rocephin 1 g/ NS 1 gm, Route: IVPB, Drug form: 11/07/2011 040 12/2011 Completed (NaCl 0.9%) 50 mL IV PDR/INJ, ONCE, Priority: ST AT, solution Start date: 11/07/11 0:46:0 0, Stop date: 11/07/11 0:46:00 Vital Signs Most recent to oldest [Reference Range]: 1 2 3 Height 182.88 cm (11/07/2011 05:12:00) Temperature Oral [96.4-99.1 DegF] 98.6 DegF (11/11/2011 20:05:00) 98.8 DegF (11/11/2011 16:03:00) 99.0 DegF (11/11/2011 11:10:00) Systolic Blood Pressure [90-140 mmHg] 157 mmHg *HI* (11/11/2011 20:05:00) 168 mmHg *HI* (11/11/2011 16:03:00) 170 mmHg *HI* (11/11/2011 11:10:00) Diastolic Blood Pressure [60-90 mmHg] 89 mmHg (11/11/2011 20:05:00) 96 mmHg *HI* (11/11/2011 16:03:00) 101 mmHg *HI* (11/11/2011 11:10:00) Respiratory Rate [14-20 BRMIN] 20 BRMIN (11/11/2011 20:05:00) 20 BRMIN (11/11/2011 16:03:00) 18 BRMIN (11/11/2011 11:10:00) Peripheral Pulse Rate [60-100 bpm] 70 bpm (11/11/2011 20:05:00) 67 bpm (11/11/2011 16:03:00) 60 bpm (11/11/2011 11:10:00) Weight 63.200 kg (11/08/2011 06:00:00) 62.000 kg (11/07/2011 06:00:00) 64.205 kg (11/07/2011 05:12:00) Results URINALYSIS Most recent to oldest [Reference Range]: 1 2 3 UA Turbidity [Clear] Cloudy *ABN* (11/06/2011 23:45:00) UA Color [Yellow] Yellow *NA* (11/06/2011 23:45:00) UA pH [5.0-8.0] 6.0 (11/06/2011 23:45:00) UA Spec Grav [<=1.030] 1.025 (11/06/2011 23:45:00) UA Glucose [Negative] Negative (11/06/2011 23:45:00) UA Blood [Negative] Moderate *ABN* (11/06/2011 23:45:00) UA Ketones [Negative] Trace *ABN* (11/06/2011 23:45:00) UA Protein [Negative mg/dL] 30 mg/dL *ABN* (11/06/2011 23:45:00) UA Urobilinogen [0.1-1.0 EU/dL] 0.2 EU/dL (11/06/2011 23:45:00) UA Bili [Negative] Negative *NA* (11/06/2011 23:45:00) UA Leuk Est [Negative] Large *ABN* (11/06/2011 23:45:00) UA Nitrite [Negative] Positive *ABN* (11/06/2011 23:45:00) UA WBC [None Seen /HPF] >100 /HPF *ABN* (11/06/2011 23:45:00) UA RBC [0-2 /HPF] 6-10 /HPF *ABN* (11/06/2011 23:45:00) UA Bacteria [None Seen /HPF] Moderate /HPF (11/06/2011 23:45:00) UA Sq Epi [Few /LPF] Few /LPF (11/06/2011 23:45:00) UA Amorph Michelle [None Seen /HPF] Few /HPF *ABN* (11/06/2011 23:45:00) UA Mucus [None Seen /LPF] Few /LPF (11/06/2011 23:45:00) UA [place] Yeast [None Seen /HPF] Few /HPF *ABN* (11/06/2011 23:45:00) UA Hyph Yeast Few /HPF *ABN* (11/06/2011 23:45:00) Micro? Performed (11/06/2011 23:45:00) CHEMISTRY Most recent to oldest [Reference Range]: 1 2 3 Sodium Lvl [135-145 mEq/L] 142 mEq/L (11/10/2011 09:27:00) 137 mEq/L (11/06/2011 22:02:00) Potassium Lvl [3.5-5.1 mEq/L] 4.6 mEq/L (11/10/2011 09:27:00) 3.7 mEq/L (11/06/2011 22:02:00) Chloride Lvl [95-109 mEq/L] 105 mEq/L (11/10/2011 09:27:00) 102 mEq/L (11/06/2011 22:02:00) CO2 [24-32 mEq/L] 28 mEq/L (11/10/2011 09:27:00) 26 mEq/L (11/06/2011 22:02:00) AGAP [10.0-20.0 mEq/L] 13.6 mEq/L (11/10/2011 09:27:00) 12.7 mEq/L (11/06/2011 22:02:00) Creatinine Lvl [0.5-1.4 mg/dL] 0.9 mg/dL (11/10/2011 09:27:00) 0.8 mg/dL (11/06/2011 22:02:00) BUN [7-22 mg/dL] 6 mg/dL *LOW* (11/10/2011:27:00) 14 mg/dL (11/06/2011 22:02:00) B/C Ratio [6-25] 18 (11/06/2011 22:02:00) Glucose Lvl [70-99 mg/dL] 76 mg/dL 1 (11/10/2011 09:27:00) 101 mg/dL 2 *HI* (11/06/2011 22:02:00) Total Protein [6.4-8.4 g/dL] 8.8 g/dL *HI* (11/06/2011 22:02:00) Albumin Lvl [3.5-5.0 g/dL] 3.2 g/dL *LOW* (11/06/2011 22:02:00) Globulin [2.0-4.0 g/dL] 5.6 g/dL *HI* (11/06/2011 22:02:00) A/G Ratio [0.7-1.6] 0.6 *LOW* (11/06/2011 22:02:00) Calcium Lvl [8.5-10.5 mg/dL] 9.4 mg/dL (11/10/2011:27:00) 9.2 mg/dL (11/06/2011 22:02:00) ALT [0-65 U/L] 33 U/L (11/06/2011 22:02:00) AST [0-37 U/L] 17 U/L (11/06/2011 22:02:00) Alk Phos [39-136 U/L] 106 U/L (11/06/2011 22:02:00) Bili Total [0.2-1.3 mg/dL] 0.3 mg/dL (11/06/2011 22:02:00) Lipase Lvl [73-393 U/L] 38 U/L *LOW* (11/06/2011 22:02:00) CK MB [0.5-3.6 ng/mL] <0.5 ng/mL (11/06/2011 22:02:00) Troponin-I [0.00-0.40 ng/mL] <0.02 ng/mL (11/06/2011 22:02:00) U Amph Scr [Negative] Negative *NA* (11/08/2011 08:20:00) Negative *NA* (11/07/2011 18:04:00) U Chelsie Scr [Negative] Negative *NA* (11/08/2011 08:20:00) Negative *NA* (11/07/2011 18:04:00) U Benzodia Scr [Negative] Positive *ABN* (11/08/2011 08:20:00) Positive *ABN* (11/07/2011 18:04:00) U Cocaine Scr [Negative] Negative *NA* (11/08/2011 08:20:00) Negative *NA* (11/07/2011 18:04:00) U Opiate Scr [Negative] Positive *ABN* (11/08/2011 08:20:00) Positive *ABN* (11/07/2011 18:04:00) U Phencyc Scr [Negative] Negative *NA* (11/08/2011 08:20:00) Negative *NA* (11/07/2011 18:04:00) U Cannab Scr [Negative] Positive *ABN* (11/08/2011 08:20:00) Positive *ABN* (11/07/2011 18:04:00) UDS Note See Note 3 (11/08/2011 08:20:00) See Note 4 (11/07/2011 18:04:00) 1Interpretive Data: Adult reference range values reflect the clinical guidelinesof the [employer]. 2Interpretive Data: Adult reference range values reflect the clinical guidelinesof the [employer]. 3Interpretive Data: Drugs reported as positive have not [...] 50 ng/mLMethadone 300 ng/mLUrine alcohol 20 mg/dL 4Interpretive Data: Drugs reported as positive have not [...] 2 3 WBC [3.7-10.4 K/CMM] 5.5 K/CMM (11/10/2011 09:27:00) 6.3 K/CMM (11/08/2011 06:25:00) 9.1 K/CMM (11/06/2011 22:02:00) RBC [4.70-6.10 M/CMM] 3.78 M/CMM *LOW* (11/10/2011 09:27:00) 3.39 M/CMM *LOW* (11/08/2011 06:25:00) 3.85 M/CMM *LOW* (11/06/2011 22:02:00) Hgb [14.0-18.0 g/dL] 12.1 g/dL *LOW* (11/10/2011 09:27:00) 10.6 g/dL *LOW* (11/08/2011 06:25:00) 12.1 g/dL *LOW* (11/06/2011 22:02:00) Hct [42.0-54.0 %] 35.2 % *LOW* (11/10/2011 09:27:00) 31.3 % *LOW* (11/08/2011:25:00) 34.6 % *LOW* (11/06/2011 22:02:00) MCV [80.0-94.0 fL] 93.3 fL (11/10/2011 09:27:00) 92.3 fL (11/08/2011 06:25:00) 89.9 fL (11/06/2011 22:02:00) MCH [27.0-31.0 pg] 31.9 pg *HI* (11/10/2011:27:00) 31.4 pg *HI* (11/08/2011:25:00) 31.4 pg *HI* (11/06/2011 22:02:00) MCHC [32.0-36.0 g/dL] 34.2 g/dL (11/10/2011:27:00) 34.0 g/dL (11/08/2011:25:00) 34.9 g/dL (11/06/2011 22:02:00) RDW [11.5-14.5 %] 14.6 % *HI* (11/10/2011:27:00) 14.7 % *HI* (11/08/2011:25:00) 14.9 % *HI* (11/06/2011 22:02:00) Platelet [133-450 K/CMM] 268 K/CMM (11/10/2011:27:00) 198 K/CMM (11/08/2011:25:00) 191 K/CMM (11/06/2011 22:02:00) MPV [7.4-10.4 fL] 7.5 fL (11/10/2011:27:00) 7.9 fL (11/08/2011:25:00) 8.6 fL (11/06/2011 22:02:00) Segs [45.0-75.0 %] 56.7 % (11/08/2011 06:25:00) 73.1 % (11/06/2011 22:02:00) Lymphocytes [20.0-40.0 %] 28.7 % (11/08/2011 06:25:00) 16.3 % *LOW* (11/06/2011 22:02:00) Monocytes [2.0-12.0 %] 12.7 % *HI* (11/08/2011 06:25:00) 10.3 % (11/06/2011 22:02:00) Eosinophils [0.0-4.0 %] 1.1 % (11/08/2011 06:25:00) 0.0 % (11/06/2011 22:02:00) Basophils [0.0-1.0 %] 0.8 % (11/08/2011 06:25:00) 0.3 % (11/06/2011 22:02:00) Segs-Bands # [1.5-8.1 K/CMM] 3.5 K/CMM (11/08/2011 06:25:00) 6.6 K/CMM (11/06/2011 22:02:00) Lymphocytes # [1.0-5.5 K/CMM] 1.8 K/CMM (11/08/2011 06:25:00) 1.5 K/CMM (11/06/2011 22:02:00) Monocytes # [0.0-0.8 K/CMM] 0.8 K/CMM (11/08/2011 06:25:00) 0.9 K/CMM *HI* (11/06/2011 22:02:00) Eosinophils # [0.0-0.5 K/CMM] 0.1 K/CMM (11/08/2011 06:25:00) 0.0 K/CMM (11/06/2011 22:02:00) Basophils # [0.0-0.2 K/CMM] 0.0 K/CMM (11/08/2011 06:25:00) 0.0 K/CMM (11/06/2011 22:02:00) Microbiology Reports PROCEDURE:Culture: Urine STATUS: Modified BODY SITE: COLLECTED DATE/TIME: 11/06/2011 23:45:00 SOURCE: Urine, Clean Catch FREE TEXT SOURCE: FINAL REPORTS Final Report >100,000 CFU/mL Escherichia coli This Organism Produces An Extended Spectrum Beta Lactamase (ESBL). Multi-drug Resistant Organism . Significant Findings Called To: juan manuel on 6th floor for esbl+/mdro At: 11/10/2011 07:32:31 Called By: paul Read Back Ok . <10,000 CFU/mL Gram Negative Rods, Isolate #2 PRELIMINARY REPORTS Preliminary Report >100,000 CFU/mL Gram Negative Rods Subculture In Progress . <10,000 CFU/mL Gram Negative Rods, Isolate #2 Preliminary Report Holding For Better Growth Preliminary Report >100,000 CFU/mL Gram Negative Rods Identification And Sensitivity Pending . < 10,000 CFU/mL Gram Negative Rods, Isolate #2 SUSCEPTIBILITY REPORT EC Antibiotic INTERP. VDIL Amikacin S Ampicillin R Ampicillin/Sulbactam R Aztreonam R Cefazolin R Cefepime R Ceftriaxone R Ciprofloxacin R ESBL Confirmation + Ertapenem S Gentamicin S Levofloxacin R Meropenem S Nitrofurantoin S Piperacillin/Tazobactam R Tetracycline R Tigecycline S Tobramycin I Trimethoprim/Sulfamethoxazole S
--- OUTSIDE RECORDS SUMMARY | 2020-03-18 10:19 | XMS REPORT | CCD ---
Author Author [employer] MAXIMO Watts [facility] Address Unknown Phone Unavailable Care Team Providers Care Director Recreation Name Role Phone Jared Henao Yasmany Saurav CP Allergies, Adverse Reactions, Alerts Substance Reaction Status NKDA Active NKFA Active Problem List Condition Effective Dates Status Acinetobacter1, 2 09/03/2006 Active Cellulitis Active --MDRO Acinetobacter collected from urine 2Problem added by Discern Expert. Medications Medication Instructions Start Date End Date Status Dilaudid 0.5 mg, Route: IV, ONCE, Priority: 09/11/201103/2012 Completed NOW, Start date: 09/11/11 10:18:00, Stop date: 09/11/11 10:18:00 vancomycin 1 gm, Route: IVPB, ONCE, Start 09/07/2011 09/07/19 12 Completed date: 09/07/11 2:08:00, Stop date: 09/07/11 2:08:00 Santyl 1 appl, Route: TOP, Daily, Drug 09/07/2011 012 Discontinued form: OINT, Start date: 09/07/11 19:00:00, Duration: 30 day, Stop date: 10/07/11 9:00:00 Zosyn 3.375 gm, Route: IVPB, ABXQ8H, 09/07/2011 09/13/19 12 Discontinued Start date: 09/07/11 16:00:00, Duration: 30 day, Stop date: 10/07/11 8:00:00 vancomycin 1.25 gm, 250 mL, Route: IVPB, Drug 09/07/201109/04 Discontinued form: INJ, Q12H, Start date: 09/07/11 14:00:00, Stop date: 10/07/11 13:00:00 acetaminophen-hydroc 1 tab, Route: PO, Drug Form: TAB, 201109/10/2011 Completed odone 325 mg-5 mg ONCE, Start date: 09/10/11 2:04:00, oral tablet Stop date: 09/10/11 2:04:00 acetaminophen-hydroc 2 tab, Route: PO, Drug Form: TAB, 201109/13/2011 Discontinued odone 325 mg-5 mg Q4H, PRN Pain, Start date: 09/11/11 oral tablet 11:36:00, Duration: 30 day, Stop date: 10/11/11 11:35:00 acetaminophen-hydroc 1 tab, Route: PO, Drug Form: TAB, 201109/13/2011 Discontinued odone 325 mg-5 mg Q4H, PRN Pain, Start date: 09/11/11 oral tablet 11:36:00, Duration: 30 day, Stop date: 10/11/11 11:35:00 Sodium Chloride 0.9% 25 mL, Route: IV, PRN, Line Flush, 09/0609/13/2011 Discontinued IV Start date: 09/06/11 21:19: 00, Duration: 30 day, Stop date: 10/06/11 21:18:00 BD Normal Saline 10 mL, Route: IV, Drug Form: INJ, 09/06/2011 09/13/2011 Discontinued Flush PRN, PRN Line Flush, Start date: 09/06/11 21:19:00, Duration: 30 day, Stop date: 10/06/11 21:18:00 cefazolin 1 gm, Route: IVPB, ABXQ8H, Start 09/06/20112011 Discontinued date: 09/06/11 22:00:00, Duration: 30 day, Stop date: 10/06/11 16:00:00 Lexapro 20 mg, 1 tab, Route: PO, Drug form: 09/06/201105/2012 Discontinued TAB, Daily, Start date: 09/06/11 21:18:00, Duration: 30 day, Stop date: 10/06/11 9:00:00 acetaminophen-hydroc 1 tab, Route: PO, Drug Form: TAB, 201109/11/2011 Discontinued odone 325 mg-5 mg Q8H, PRN Pain, Start date: 09/06/11 oral tablet 21:17:00, Stop date: 21:16:00 Neurontin 300 mg, 1 cap, Route: PO, Drug 09/06/2011 09/13/19 Discontinued form: CAP, TID, Start date: 09/06/11 21:16:00, Duration: 30 day, Stop date: 10/06/11 17:00:00 Dolophine 40 mg, 4 tab, Route: PO, Drug form: 09/06/201105/2012 Discontinued TAB, BID, Start date: 09/06/11 21:16:00, Duration: 30 day, Stop date: 10/06/11 17:00:00 baclofen 10 mg, 1 tab, Route: PO, Drug form: 09/06/201105/2012 Discontinued TAB, BID, Start date: 09/06/11 21:15:00, Stop date: 10/06/11 17:00:00 Xanax 2 mg, 2 tab, Route: PO, Drug form: 09/06/201109/04 Discontinued TAB, BID, Start date: 09/06/11 21:14:00, Stop date: 10/06/11 17:00:00 Demerol HCl 12.5 mg, Route: IV, ONCE, Start 09/11/2011 012 Completed date: 09/11/11 10:18:00, Stop date: 09/11/11 10:18:00 Dilaudid 0.5 mg, Route: IV, ONCE, Priority: 09/11/201103/2012 Completed NOW, Start date: 09/11/11 10:18:00, Stop date: 09/11/11 10:18:00 Vital Signs Most recent to oldest [Reference Range]: 1 2 3 Height 182.88 cm (09/06/2011 20:54:00) Current Weight 64.261 kg (09/13/2011 08:00:00) Temperature Oral [96.4-99.1 DegF] 97.7 DegF (09/13/2011 12:00:00) 97.9 DegF (09/13/2011 08:00:00) 98.3 DegF (09/13/2011 00:00:00) Systolic Blood Pressure [90-140 mmHg] 117 mmHg (09/13/2011 12:00:00) 117 mmHg (09/13/2011 08:00:00) 122 mmHg (09/13/2011 00:00:00) Diastolic Blood Pressure [60-90 mmHg] 70 mmHg (09/13/2011 12:00:00) 67 mmHg (09/13/2011 08:00:00) 75 mmHg (09/13/2011 00:00:00) Respiratory Rate [14-20 BRMIN] 18 BRMIN (09/13/2011 12:00:00) 18 BRMIN (09/13/2011 08:00:00) 20 BRMIN (09/13/2011 00:00:00) Peripheral Pulse Rate [60-100 bpm] 95 bpm (09/13/2011 12:00:00) 59 bpm *LOW* (09/13/2011 08:00:00) 67 bpm (09/13/2011 00:00:00) Weight 61.364 kg (09/06/2011 20:54:00) Results CHEMISTRY Most recent to oldest [Reference Range]: 1 2 3 Sodium Lvl [135-145 mEq/L] 139 mEq/L (09/13/2011 08:15:00) 138 mEq/L (09/12/2011 03:00:00) 139 mEq/L (09/11/2011 05:00:00) Potassium Lvl [3.5-5.1 mEq/L] 4.6 mEq/L (09/13/2011 08:15:00) 4.2 mEq/L (09/12/2011 03:00:00) 4.3 mEq/L (09/11/2011 05:00:00) Chloride Lvl [95-109 mEq/L] 104 mEq/L (09/13/2011 08:15:00) 102 mEq/L (09/12/2011 03:00:00) 101 mEq/L (09/11/2011 05:00:00) CO2 [24-32 mEq/L] 28 mEq/L (09/13/2011 08:15:00) 30 mEq/L (09/12/2011 03:00:00) 29 mEq/L (09/11/2011 05:00:00) AGAP [10.0-20.0 mEq/L] 11.6 mEq/L (09/13/2011 08:15:00) 10.2 mEq/L (09/12/2011 03:00:00) 13.3 mEq/L (09/11/2011 05:00:00) Creatinine Lvl [0.5-1.4 mg/dL] 0.8 mg/dL (09/13/2011 08:15:00) 0.7 mg/dL (09/12/2011 03:00:00) 0.7 mg/dL (09/11/2011 05:00:00) eGFR >60 1 *NA* (09/07/2011 01:00:00) BUN [7-22 mg/dL] 22 mg/dL (09/13/2011 08:15:00) 21 mg/dL (09/12/2011 03:00:00) 22 mg/dL (09/11/2011 05:00:00) B/C Ratio [6-25] 31 *HI* (09/11/2011 05:00:00) Glucose Lvl 90 mg/dL 2 *NA* (09/13/2011 08:15:00) 84 mg/dL 3 *NA* (09/12/2011 03:00:00) 87 mg/dL 4 *NA* (09/11/2011 05:00:00) Total Protein [6.4-8.4 g/dL] 7.2 g/dL (09/11/2011 05:00:00) Albumin Lvl [3.5-5.0 g/dL] 2.4 g/dL *LOW* (09/11/2011 05:00:00) Globulin [2.0-4.0 g/dL] 4.8 g/dL *HI* (09/11/2011 05:00:00) A/G Ratio [0.7-1.6] 0.5 *LOW* (09/11/2011 05:00:00) Calcium Lvl [8.5-10.5 mg/dL] 8.7 mg/dL (09/13/2011 08:15:00) 8.8 mg/dL (09/12/2011 03:00:00) 8.5 mg/dL (09/11/2011 05:00:00) ALT [0-65 U/L] 37 U/L (09/11/2011 05:00:00) AST [0-37 U/L] 34 U/L (09/11/2011 05:00:00) Alk Phos [39-136 U/L] 79 U/L (09/11/2011 05:00:00) Bili Total [0.2-1.3 mg/dL] 0.2 mg/dL (09/11/2011 05:00:00) 1Result Comment: Expected eGFR for >20 yr. age group: >=60 ml/min/1.73 sq m The eGFR calculation is not valid in or for persons < 18 years of age. From [employer] Kid[employer] Disease Education Program (NKDEP) 2Interpretive Data: Reference Ranges : 0 - 7 days : 41 - 90 mg/dL7 days - 150 yrs : 70 - 99 mg/dL (fasting), based on the clinical recommendations of the [place] [employer]. 3Interpretive Data: Reference Ranges : 0 - 7 days : 41 - 90 mg/dL7 days - 150 yrs : 70 - 99 mg/dL (fasting), based on the clinical recommendations of the [place] [employer]. 4Interpretive Data: Reference Ranges : 0 - 7 days : 41 - 90 mg/dL7 days - 150 yrs : 70 - 99 mg/dL (fasting), based on the clinical recommendations of the [place] [employer]. HEMATOLOGY Most recent to oldest [Reference Range]: 1 2 3 WBC [3.7-10.4 K/CMM] 10.8 K/CMM *HI* (09/13/2011 08:15:00) 8.7 K/CMM (09/12/2011 03:00:00) 7.1 K/CMM (09/11/2011 05:00:00) RBC [4.70-6.10 M/CMM] 3.47 M/CMM *LOW* (09/13/2011 08:15:00) 3.47 M/CMM *LOW* (09/12/2011 03:00:00) 3.39 M/CMM *LOW* (09/11/2011 05:00:00) Hgb [14.0-18.0 g/dL] 10.7 g/dL *LOW* (09/13/2011 08:15:00) 10.5 g/dL *LOW* (09/12/2011 03:00:00) 10.6 g/dL *LOW* (09/11/2011 05:00:00) Hct [42.0-54.0 %] 32.1 % *LOW* (09/13/2011 08:15:00) 32.1 % *LOW* (09/12/2011 03:00:00) 31.0 % *LOW* (09/11/2011 05:00:00) MCV [80.0-94.0 fL] 92.6 fL (09/13/2011 08:15:00) 92.5 fL (09/12/2011 03:00:00) 91.6 fL (09/11/2011 05:00:00) MCH [27.0-31.0 pg] 31.0 pg (09/13/2011 08:15:00) 30.1 pg (09/12/2011 03:00:00) 31.2 pg *HI* (09/11/2011 05:00:00) MCHC [32.0-36.0 g/dL] 33.5 g/dL (09/13/2011 08:15:00) 32.5 g/dL (09/12/2011 03:00:00) 34.1 g/dL (09/11/2011 05:00:00) RDW [11.5-14.5 %] 15.4 % *HI* (09/13/2011 08:15:00) 15.3 % *HI* (09/12/2011 03:00:00) 14.8 % *HI* (09/11/2011 05:00:00) Platelet [133-450 K/CMM] 289 K/CMM (09/13/2011 08:15:00) 303 K/CMM (09/12/2011 03:00:00) 328 K/CMM (09/11/2011 05:00:00) MPV [7.4-10.4 fL] 7.4 fL (09/13/2011 08:15:00) 7.1 fL *LOW* (09/12/2011 03:00:00) 7.4 fL (09/11/2011 05:00:00) Segs [45.0-75.0 %] 61.3 % (09/13/2011 08:15:00) 58.0 % (09/12/2011 03:00:00) 47.7 % (09/11/2011 05:00:00) Lymphocytes [20.0-40.0 %] 25.3 % (09/13/2011 08:15:00) 27.5 % (09/12/2011 03:00:00) 36.9 % (09/11/2011 05:00:00) Monocytes [2.0-12.0 %] 9.4 % (09/13/2011 08:15:00) 10.5 % (09/12/2011 03:00:00) 10.1 % (09/11/2011 05:00:00) Eosinophils [0.0-4.0 %] 3.5 % (09/13/2011 08:15:00) 3.5 % (09/12/2011 03:00:00) 4.6 % *HI* (09/11/2011 05:00:00) Basophils [0.0-1.0 %] 0.5 % (09/13/2011 08:15:00) 0.5 % (09/12/2011 03:00:00) 0.7 % (09/11/2011 05:00:00) Segs-Bands # [1.5-8.1 K/CMM] 6.6 K/CMM (09/13/2011 08:15:00) 5.1 K/CMM (09/12/2011 03:00:00) 3.4 K/CMM (09/11/2011 05:00:00) Lymphocytes # [1.0-5.5 K/CMM] 2.7 K/CMM (09/13/2011 08:15:00) 2.4 K/CMM (09/12/2011 03:00:00) 2.6 K/CMM (09/11/2011 05:00:00) Monocytes # [0.0-0.8 K/CMM] 1.0 K/CMM *HI* (09/13/2011 08:15:00) 0.9 K/CMM *HI* (09/12/2011 03:00:00) 0.7 K/CMM (09/11/2011 05:00:00) Eosinophils # [0.0-0.5 K/CMM] 0.4 K/CMM (09/13/2011 08:15:00) 0.3 K/CMM (09/12/2011 03:00:00) 0.3 K/CMM (09/11/2011 05:00:00) Basophils # [0.0-0.2 K/CMM] 0.1 K/CMM (09/13/2011 08:15:00) 0.1 K/CMM (09/11/2011 05:00:00) 0.0 K/CMM (09/09/2011 03:47:00) PT [12.0-14.7 seconds] 13.3 seconds (09/11/2011 05:00:00) 13.3 seconds (09/11/2011 05:00:00) INR [0.85-1.17] 1.01 5 (09/11/2011 05:00:00) 1.01 6 (09/11/2011 05:00:00) PTT [22.9-35.8 seconds] 27.1 seconds 7 (09/11/2011 05:00:00) 5Interpretive Data: RECOMMENDED RANGES FOR PROTIME INR: 2.0-3.0 for most medical and surgical thromboembolic states. 2.5-3.5 for artificial heart valves and recurrent embolism.INR SHOULD BE USED ONLY FOR PATIENTS ON STABLE ANTICOAGULANT THERAPY. 6Interpretive Data: RECOMMENDED RANGES FOR PROTIME INR: 2.0-3.0 for most medical and surgical thromboembolic states. 2.5-3.5 for artificial heart valves and recurrent embolism.INR SHOULD BE USED ONLY FOR PATIENTS ON STABLE ANTICOAGULANT THERAPY. 7Interpretive Data: Heparin Therapeutic Range: 57 - 92 Seconds Microbiology Reports PROCEDURE:Culture: Wound/Abscess w/Gram Stain STATUS: Auth (Verified) BODY SITE: Foot L COLLECTED DATE/TIME: 09/06/2011 23:00:00 SOURCE: Wound, Non Surg FREE TEXT SOURCE: FINAL REPORTS Final Report Many Gram Negative Rods Moderate Proteus Species Moderate Staphylococcus aureus Moderate Enterococcus Species . Specimen contains >3 presumptive pathogens; recommend recollection if clinically warranted by tissue biopsy with quantitative culture if possible. PRELIMINARY REPORTS Preliminary Report Many Gram Negative Rods Moderate Gram Negative Rods, Isolate #2 Subculture In Pr ogress Preliminary Report Holding For Better Growth
--- OUTSIDE RECORDS SUMMARY | 2020-03-18 10:19 | XMS REPORT | Summary of Care ---
Author Author [facility] Organization [facility] Address Unknown Phone Unavailable Encounter MOJGAN Jacques(AMARI) [id number] Date(s): 07/04/18 - 07/08/18 [facility] [address] [place] [address]- [phone] Encounter Diagnosis Poisoning by unspecified narcotics, accidental (unintentional), initial encounte r (Final) - 07/13/18 Toxic encephalopathy (Final) - Pneumonitis due to inhalation of food and vomit (Final) - Acute kidney failure, unspecified (Final) - Paraplegia, unspecified (Final) - Essential (primary) hypertension (Final) - Chronic viral hepatitis C (Final) - Nosocomial condition (Final) - Pressure ulcer of left buttock, unspecified stage (Final) - Pressure ulcer of right buttock, unspecified stage (Final) - Pressure ulcer of right ankle, unspecified stage (Final) - Pressure ulcer of sacral region, unspecified stage (Final) - Pressure ulcer of other site, unspecified stage (Final) - Neuromuscular dysfunction of bladder, unspecified (Final) - Cannabis abuse, uncomplicated (Final) - Opioid use, unspecified, uncomplicated (Final) - Poisoning by 4-Aminophenol derivatives, accidental (unintentional), initial enco unter (Final) - 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) - Discharge Disposition: Home or Self Care Attending Physician: Vandana Mahoney MD Admitting Physician: Vandana Mahoney MD Vital Signs 1 2 3 Most recent to oldest [Reference Range]: 182.88 cm (07/04/18 5:50 PM) 172.72 cm (07/04/18 9:27 AM) Height 63.324 kg (07/07/18 6:06 AM) 81.636 kg (07/06/18 6:00 AM) Current Weight 98.7 DegF (07/08/18 11:49 AM) 98.3 DegF (07/08/18 8:58 AM) 98.3 DegF (07/08/18 4:17 AM) Temperature Oral [96.4-99.1 DegF] 136/88 mmHg (07/08/18 11:49 AM) 152/88 mmHg *HI* (07/08/18 8:58 AM) 139/90 mmHg (07/08/18 4:17 AM) Blood Pressure [90-140/60-90 mmHg] 18 BRMIN (07/08/18 11:49 AM) 18 BRMIN (07/08/18 8:58 AM) 18 BRMIN (07/08/18 4:17 AM) Respiratory Rate [14-20 BRMIN] 88 bpm (07/08/18 11:49 AM) 130 bpm *HI* (07/08/18 8:58 AM) 126 bpm *HI* (07/08/18 4:17 AM) Peripheral Pulse Rate [60-100 bpm] 79.545 kg (07/04/18 5:50 PM) 79.545 kg (07/04/18 9:27 AM) Weight 23.78 m2 (07/04/18 5:50 PM) 26.66 m2 (07/04/18 9:27 AM) Body Mass Index Problem List Condition [...] PO, Drug form: TAB, Q4H, Dosing Weight 79.545, kg, PRN Maxwell n Score 1-3, For fever > 100.4. Not to exceed 4 grams in 24 hours, Start date: 07/04/18 14:46:00 UNLOADER OPERATOR, Duration: 30 day, Stop date: 08/03/18 14:45:00 UNLOADER OPERATOR Notes: Do not exceed 4 gm/day. (Same as: Tylenol) Start Date: 07/04/18 Stop Date: 07/08/18 Status: Discontinued albuterol-ipratropium 2.5-0.5 mg inhalation solution 3 mL, Route: NEB, Drug Form: SOLN, Dosing Weight 79.545, kg, PRN, PRN Respirator y Pathway, Start date: 07/04/18 14:46:00 UNLOADER OPERATOR, Duration: 30 day, Stop date: 08/03 14:45:00 UNLOADER OPERATOR Notes: (Same as: Duoneb) Start Date: 07/04/18 Stop Date: 07/08/18 Status: Discontinued amitriptyline 50 mg, 1 tab, Route: PO, Drug form: TAB, Bedtime, Dosing Weight 79.545, kg, Star t date: 07/06/18 21:00:00 UNLOADER OPERATOR, Duration: 30 day, Stop date: 08/04/18 21:00:00 CS T Notes: (Same as: Elavil) Start Date: 07/06/18 Stop Date: 07/08/18 Status: Discontinued Augmentin 875 mg oral tablet 1 tab, Route: PO, Drug Form: TAB, Dosing Weight 79.545, kg, Q12H, Start date: 21:00:00 UNLOADER OPERATOR, Duration: 5 day, Stop date: 07/11/18 9:00:00 UNLOADER OPERATOR Notes: With food.(Same as: Augmentin 875) Start Date: 07/06/18 Stop Date: 07/08/18 Status: Discontinued Augmentin 875 mg oral tablet 1 tab, PO, Q12H, X 7 day, # 14 tab, 0 Refill(s), Pharmacy: [facility] [id number] Start Date: 07/07/18 Stop Date: 07/14/18 Status: Completed BD Normal Saline Flush 10 ml, Route: IVP, Drug Form: INJ, Dosing Weight 79.545, kg, PRN, PRN Line Flush , Start date: 07/07/18 17:30:00 UNLOADER OPERATOR, Duration: 30 day, Stop date: 08/06/18 17:29 :00 UNLOADER OPERATOR Notes: Same as: BD Posiflush Sterile Start Date: 07/07/18 Stop Date: 07/08/18 Status: Discontinued cefepime 1 gm, Route: IVPB, Q12H, Dosing Weight 79.545, kg, Priority: STAT, Start date: 1 09/04/17 14:48:00 UNLOADER OPERATOR, Duration: 30 day, Stop date: 08/03/18 9:00:00 UNLOADER OPERATOR, ABX Ind ication: Pneumonia Start Date: 07/04/18 Stop Date: 07/04/18 Status: Discontinued cefepime 2 gm, Route: IVP, ONCE, Dosing Weight 79.545, kg, Priority: STAT, Start date: 14:43:00 UNLOADER OPERATOR, Stop date: 07/04/18 14:43:00 UNLOADER OPERATOR, ABX Indication: Pneumonia Start Date: 07/04/18 Stop Date: 07/04/18 Status: Discontinued cefepime + sterile water 20 mL 2 gm, Route: IVP, ONCE, Dosing Weight 79.545, kg, Priority: STAT, Start date: 14:14:00 UNLOADER OPERATOR, Stop date: 07/04/18 14:14:00 UNLOADER OPERATOR, ABX Indication: Pneumonia Notes: (Same as: Maxipime) MEDICATION WASTE Product Size: 2000 mgProduc t Wasted: ___ mg Start Date: 07/04/18 Stop Date: 07/04/18 Status: Completed Colace 100 mg oral capsule 100 mg = 1 cap, PO, BID, # 28 cap, 0 Refill(s), Pharmacy: [facility] [id number] Start Date: 07/07/18 Stop Date: 07/21/18 Status: Ordered Colace 100 mg oral capsule 100 mg, 1 cap, Route: PO, Drug form: CAP, BID, Dosing Weight 79.545, kg, Start d ate: 07/07/18 17:00:00 UNLOADER OPERATOR, Duration: 30 day, Stop date: 08/06/18 9:00:00 UNLOADER OPERATOR Notes: (Same as: Colace) (Do Not Crush) Start Date: 07/07/18 Stop Date: 07/08/18 Status: Discontinued dextromethorphan-guaiFENesin 10 mg-100 mg/5 mL oral liquid 10 mL, Route: PO, Drug Form: LIQ, Dosing Weight 79.545, kg, Q4H, PRN Cough, Star t date: 07/04/18 14:46:00 UNLOADER OPERATOR, Duration: 30 day, Stop date: 08/03/18 14:45:00 CS T Notes: (dextromethorphan-guaifenesin 10-100/5 ml LIQ) (Same as: Kranthiitussin-DM) Start Date: 07/04/18 Stop Date: 07/08/18 Status: Discontinued ferrous sulfate 325 mg, 1 tab, Route: PO, Drug form: TAB, TID, Dosing Weight 79.545, kg, Start d ate: 07/07/18 13:00:00 UNLOADER OPERATOR, Duration: 30 day, Stop date: 08/06/18 9:00:00 UNLOADER OPERATOR Notes: Give with food.iron elemental 35am=376bw as ferrous sulfateDose=___mg daniel mental iron Start Date: 07/07/18 Stop Date: 07/08/18 Status: Discontinued heparin 5,000 unit, 1 mL, Route: SUB-Q, Drug form: INJ, Q12H, Dosing Weight 79.545, kg, Start date: 07/04/18 21:00:00 UNLOADER OPERATOR, Duration: 30 day, Stop date: 08/03/18 9:00:00 UNLOADER OPERATOR Notes: porcine heparin Start Date: 07/04/18 Stop Date: 07/08/18 Status: Discontinued hydrALAZINE 25 mg oral tablet 25 mg, 1 tab, Route: PO, Drug form: TAB, TID, Dosing Weight 79.545, kg, PRN Hype rtension, Start date: 07/07/18 17:23:00 UNLOADER OPERATOR, Duration: 30 day, Stop date: 17:22:00 UNLOADER OPERATOR Notes: (Same as: Apresoline) May interfere w/enteral feedings Take With Food. Start Date: 07/07/18 Stop Date: 07/08/18 Status: Discontinued iron sulfate (ferrous sulfate) 325 mg oral tablet 325 mg = 1 tab, PO, TID, # 90 tab, 5 Refill(s), Pharmacy: [facility] [id number] Start Date: 07/07/18 Stop Date: 01/03/19 Status: Ordered Isolyte S PH-7.4 (Bolus) IV 1,000 mL, Route: IV, ONCE, Dosing Weight 79.545 kg, Start date: 07/04/18 11:50:0 0 UNLOADER OPERATOR, Stop date: 07/04/18 11:50:00 UNLOADER OPERATOR Start Date: 07/04/18 Stop Date: 07/04/18 Status: Completed labetalol 10 mg, 2 mL, Route: IVP, Drug form: INJ, Q6H, Dosing Weight 79.545, kg, PRN Hype rtension, Start date: 07/06/18 17:12:00 UNLOADER OPERATOR, Duration: 30 day, Stop date: 17:11:00 UNLOADER OPERATOR Notes: (Same as: Normodyne, Trandate)Push over 2 minutes Give bolus over 2-3 mi nutes. Start Date: 07/06/18 Stop Date: 07/08/18 Status: Discontinued levofloxacin 750 mg, Route: IVPB, ONCE, Dosing Weight 79.545, kg, Priority: STAT, Start date: 07/04/18 14:43:00 UNLOADER OPERATOR, Stop date: 07/04/18 14:43:00 UNLOADER OPERATOR, ABX Indication: Pneumo jake Start Date: 07/04/18 Stop Date: 07/04/18 Status: Discontinued lisinopril 5 mg, 1 tab, Route: PO, Drug form: TAB, Daily, Dosing Weight 79.545, kg, Start d ate: 07/07/18 9:00:00 UNLOADER OPERATOR, Duration: 30 day, Stop date: 08/05/18 9:00:00 UNLOADER OPERATOR Notes: (Same as: Prinivil, Zestril) Start Date: 07/07/18 Stop Date: 07/08/18 Status: Discontinued Lopressor 25 mg, 1 tab, Route: PO, Drug form: TAB, Q12H, Dosing Weight 79.545, kg, Start d ate: 07/06/18 21:00:00 UNLOADER OPERATOR, Duration: 30 day, Stop date: 08/05/18 9:00:00 UNLOADER OPERATOR Notes: (Same as: Lopressor) Start Date: 07/06/18 Stop Date: 07/08/18 Status: Discontinued Maxipime + Sodium Chloride 0.9% IV 100 mL 1 gm, Route: IVPB, [id number], Dosing Weight 79.545, kg, Priority: Routine, Start d ate: 07/05/18 3:00:00 UNLOADER OPERATOR, Duration: 30 day, Stop date: 08/03/18 15:00:00 UNLOADER OPERATOR, A BX Indication: Pneumonia Notes: (Same As: Maxipime) MEDICATION WASTE Product Size: 1000 mgProduc t Wasted: ___ mg Start Date: 07/05/18 Stop Date: 07/06/18 Status: Discontinued melatonin 3 mg, 1 tab, Route: PO, Drug form: TAB, ONCE, Dosing Weight 79.545, kg, Start da te: 07/08/18 1:19:00 UNLOADER OPERATOR, Stop date: 07/08/18 1:19:00 UNLOADER OPERATOR Notes: (Same as: Melatonin) Start Date: 07/08/18 Stop Date: 07/08/18 Status: Completed Sharon 5/325 oral tablet 1 tab, Route: PO, Drug Form: TAB, Dosing Weight 79.545, kg, Q4H, PRN Pain Score 1-3, STAT, Start date: 07/08/18 9:32:00 UNLOADER OPERATOR, Duration: 30 day, Stop date: 9:31:00 UNLOADER OPERATOR Notes: (Same as: Sharon 325/5) Do not exceed 4gm/day of acetaminophen. Start Date: 07/08/18 Stop Date: 07/08/18 Status: Discontinued Sharon 5/325 oral tablet 1 tab, Route: PO, Drug Form: TAB, Dosing Weight 79.545, kg, ONCE, Start date: 21:04:00 UNLOADER OPERATOR, Stop date: 07/04/18 21:04:00 UNLOADER OPERATOR Notes: (Same as: Sharon 325/5) Do not exceed 4gm/day of acetaminophen. Start Date: 07/04/18 Stop Date: 07/04/18 Status: Completed ondansetron 4 mg, 2 mL, Route: IVP, Drug form: INJ, Q6H, Dosing Weight 79.545, kg, PRN Nause a & Vomiting, Start date: 07/04/18 14:46:00 UNLOADER OPERATOR, Duration: 30 day, Stop date: 08/03/18 14:45:00 UNLOADER OPERATOR Notes: (Same as: Zofran) MEDICATION WASTE Product Size: 4 mgProduct Was reinaldo: ___ mg Start Date: 07/04/18 Stop Date: 07/08/18 Status: Discontinued Saline Flush 0.9% 10 ml, Route: IVP, Drug Form: INJ, Dosing Weight 79.545, kg, PRN, PRN Line Flush , Start date: 07/04/18 14:46:00 UNLOADER OPERATOR, Duration: 30 day, Stop date: 08/03/18 14:45 :00 UNLOADER OPERATOR Notes: (Same as: BD Posiflush) Start Date: 07/04/18 Stop Date: 07/07/18 Status: Discontinued Saline Flush 0.9% 10 ml, Route: IVP, Drug Form: INJ, Dosing Weight 79.545, kg, Q12H, Start date: 1 09/04/17 21:00:00 UNLOADER OPERATOR, Duration: 30 day, Stop date: 08/03/18 9:00:00 UNLOADER OPERATOR Notes: (Same as: BD Posiflush) Start Date: 07/04/18 Stop Date: 07/08/18 Status: Discontinued Saline Flush 0.9% 10 ml, Route: IVP, Drug Form: INJ, Dosing Weight 79.545, kg, PRN, PRN Line Flush , Start date: 07/04/18 14:46:00 UNLOADER OPERATOR, Duration: 30 day, Stop date: 08/03/18 14:45 :00 UNLOADER OPERATOR Notes: (Same as: BD Posiflush) Start Date: 07/04/18 Stop Date: 07/06/18 Status: Discontinued Sodium Chloride 0.9% (Bolus) IV 1,000 mL, 1000 ml/hr, Infuse Over: 1 hr, Route: IV, 1,000, Drug form: INJ, ONCE, Priority: STAT, Dosing Weight 79.545 kg, Start date: 07/04/18 10:21:00 UNLOADER OPERATOR, Stop date: 07/04/18 10:21:00 UNLOADER OPERATOR Start Date: 07/04/18 Stop Date: 07/04/18 Status: Completed Sodium Chloride 0.9% IV 1,000 mL 1,000 mL, Rate: 125 ml/hr, Infuse over: 8 hr, Route: IV, Dosing Weight 79.545 kg , Total Volume: 1,000, Start date: 07/04/18 14:46:00 UNLOADER OPERATOR, Duration: 30 day, Stop date: 08/03/18 14:45:00 UNLOADER OPERATOR, 1.97, m2 Start Date: 07/04/18 Stop Date: 07/06/18 Status: Discontinued Unasyn + Sodium Chloride 0.9% IV 100 mL 3 gm, Route: IVPB, [id number], Dosing Weight 79.545, kg, Start date: 07/06/18 10:00: 00 UNLOADER OPERATOR, Duration: 30 day, Stop date: 08/05/18 4:00:00 UNLOADER OPERATOR Notes: Dosing based on Ampicillin component (Same as: Unasyn) Start Date: 07/06/18 Stop Date: 07/06/18 Status: Discontinued vancomycin + Sodium Chloride 0.9% IV 250 mL 1,000 mg, Route: IVPB, ONCE, Dosing Weight 79.545, kg, Priority: STAT, Start river e: 07/04/18 14:14:00 UNLOADER OPERATOR, Stop date: 07/04/18 14:14:00 UNLOADER OPERATOR, ABX Indication: Pneu monia Notes: TIME CRITICAL MEDICATION(Same As: Vancocin)Infusion rate< 1000 mg: infuse over 1 [id number] - 1500 mg: infuse over 1.5 [id number] - 2000 mg: infuse over 2 hours> 2001 mg: infuse over 2.5 hoursFor adult patients only: Round to nearest 250 mg per Medical Staff approval MEDICATION WASTE Product Size: 1000 mgProduct Wasted: ___ mg Start Date: 07/04/18 Stop Date: 07/04/18 Status: Completed Zithromax + Sodium Chloride 0.9% IV 250 mL 500 mg, Route: IVPB, Daily, Dosing Weight 79.545, kg, Priority: STAT, Start date : 07/04/18 14:49:00 UNLOADER OPERATOR, Duration: 30 day, Stop date: 08/03/18 9:00:00 UNLOADER OPERATOR, ABX Indication: Pneumonia Notes: (Same As: Zithromax IV) Start Date: 07/04/18 Stop Date: 07/06/18 Status: Discontinued Results 1 2 3 Most recent to oldest [Reference Range]: 0.16 ng/mL *HI* (07/05/18 6:01 AM) 0.46 ng/mL *HI* (07/04/18 11:57 AM) Procalcitonin Lvl [0.00-0.10 ng/mL] 6.5 K/CMM (07/07/18 5:33 AM) 5.8 K/CMM (07/06/18 6:27 AM) 7.0 K/CMM (07/05/18 6:01 AM) Neutrophils # [1.5-8.1 K/CMM] 3.9 K/CMM (07/07/18 5:33 AM) 1.6 K/CMM (07/06/18 6:27 AM) 4.0 K/CMM (07/05/18 6:01 AM) Lymphocytes # [1.0-5.5 K/CMM] 0.9 K/CMM *HI* (07/07/18 5:33 AM) 0.5 K/CMM (07/06/18 6:27 AM) 0.8 K/CMM (07/05/18 6:01 AM) Monocytes # [0.0-0.8 K/CMM] 0.2 K/CMM (07/07/18 5:33 AM) 0.2 K/CMM (07/06/18 6:27 AM) 0.5 K/CMM (07/05/18 6:01 AM) Eosinophils # [0.0-0.5 K/CMM] 0.1 K/CMM (07/07/18 5:33 AM) 0.0 K/CMM (07/06/18 6:27 AM) 0.2 K/CMM (07/05/18 6:01 AM) Basophils # [0.0-0.2 K/CMM] Normal (07/05/18 6:01 AM) See Note 1 (07/04/18 10:23 AM) Plt Morph Negative *NA* (07/04/18 3:21 PM) HIV Ag/Ab 4th Gen [Negative] Urine *NA* (07/04/18 4:17 PM) Source Strep Negative (07/04/18 4:17 PM) Strep pneumoniae Ag [Negative] 88 mL/min/1.73m2 2 *NA* (07/07/18 5:33 AM) 79 mL/min/1.73m2 3 *NA* (07/06/18 6:27 AM) 52 mL/min/1.73m2 4 *NA* (07/05/18 6:01 AM) eGFR See Note (07/04/18 12:41 PM) UDS Note Negative (07/04/18 3:21 PM) Influ A [Negative] Negative (07/04/18 3:21 PM) Influ B [Negative] 0.5 *LOW* (07/07/18 5:33 AM) 0.5 *LOW* (07/06/18 6:27 AM) 0.5 *LOW* (07/05/18 6:01 AM) A/G Ratio [0.7-1.6] <2 (07/06/18 3:14 PM) Acetaminoph Lvl [10-20] 3.0 g/dL *LOW* (07/07/18 5:33 AM) 2.6 g/dL *LOW* (07/06/18 6:27 AM) 2.7 g/dL *LOW* (07/05/18 6:01 AM) Albumin Lvl [3.5-5.0 g/dL] 106 unit/L (07/07/18 5:33 AM) 104 unit/L (07/06/18 6:27 AM) 115 unit/L (07/05/18 6:01 AM) Alk Phos [39-136 unit/L] 11 unit/L (07/07/18 5:33 AM) 15 unit/L (07/06/18 6:27 AM) 13 unit/L (07/05/18 6:01 AM) ALT [0-65 unit/L] Negative *NA* (07/04/18 12:41 PM) U Amph Scr [Negative] 13.6 mEq/L (07/07/18 5:33 AM) 13.5 mEq/L (07/06/18 6:27 AM) 15.5 mEq/L (07/05/18 6:01 AM) AGAP [10.0-20.0 mEq/L] 1+ *ABN* (07/06/18 6:27 AM) 1+ *ABN* (07/05/18 6:01 AM) 2+ *ABN* (07/04/18 10:23 AM) Anisocyte [None Seen] 18 unit/L (07/07/18 5:33 AM) 14 unit/L (07/06/18 6:27 AM) 23 unit/L (07/05/18 6:01 AM) AST [0-37 unit/L] 15 (07/07/18 5:33 AM) 21 (07/06/18 6:27 AM) 24 (07/05/18 6:01 AM) B/C Ratio [6-25] Negative *NA* (07/04/18 12:41 PM) U Chelsie Scr [Negative] 0.9 % (07/07/18 5:33 AM) 0.2 % (07/06/18 6:27 AM) 1.7 % *HI* (07/05/18 6:01 AM) Basophils [0.0-1.0 %] Negative *NA* (07/04/18 12:41 PM) U Benzodiaz Scr [Negative] 17 mg/dL (07/07/18 5:33 AM) 25 mg/dL *HI* (07/06/18 6:27 AM) 41 mg/dL *HI* (07/05/18 6:01 AM) BUN [7-22 mg/dL] 10.0 mg/dL (07/07/18 5:33 AM) 9.2 mg/dL (07/06/18 6:27 AM) 9.0 mg/dL (07/05/18 6:01 AM) Calcium Lvl [8.5-10.5 mg/dL] 269 unit/L *HI* (07/04/18 10:23 AM) Total CK [12-191 unit/L] 111 mEq/L *HI* (07/07/18 5:33 AM) 114 mEq/L *HI* (07/06/18 6:27 AM) 110 mEq/L *HI* (07/05/18 6:01 AM) Chloride Lvl [95-109 mEq/L] 22 mEq/L *LOW* (07/07/18 5:33 AM) 18 mEq/L *LOW* (07/06/18 6:27 AM) 19 mEq/L *LOW* (07/05/18 6:01 AM) CO2 [24-32 mEq/L] Negative *NA* (07/04/18 12:41 PM) U Cocaine Scr [Negative] 1.10 mg/dL (07/07/18 5:33 AM) 1.20 mg/dL (07/06/18 6:27 AM) 1.70 mg/dL *HI* (07/05/18 6:01 AM) Creatinine Lvl [0.50-1.40 mg/dL] 1.8 % (07/07/18 5:33 AM) 2.4 % (07/06/18 6:27 AM) 4.1 % *HI* (07/05/18 6:01 AM) Eosinophils [0.0-4.0 %] <.003 % *NA* (07/04/18 10:23 AM) Etoh (%) <3 mg/dL *NA* (07/04/18 10:23 AM) Ethanol Lvl 5.5 g/dL *HI* (07/07/18 5:33 AM) 5.3 g/dL *HI* (07/06/18 6:27 AM) 5.3 g/dL *HI* (07/05/18 6:01 AM) Globulin [2.7-4.2 g/dL] 84 mg/dL (07/07/18 5:33 AM) 102 mg/dL *HI* (07/06/18 6:27 AM) 78 mg/dL (07/05/18 6:01 AM) Glucose Lvl [70-99 mg/dL] 30.9 % *LOW* (07/07/18 5:33 AM) 28.1 % *LOW* (07/06/18 6:27 AM) 29.4 % *LOW* (07/05/18 6:01 AM) Hct [42.0-54.0 %] 9.6 g/dL *LOW* (07/07/18 5:33 AM) 9.0 g/dL *LOW* (07/06/18 6:27 AM) 9.1 g/dL *LOW* (07/05/18 6:01 AM) Hgb [14.0-18.0 g/dL] 4.6 mEq/L (07/07/18 5:33 AM) 4.5 mEq/L (07/06/18 6:27 AM) 4.5 mEq/L (07/05/18 6:01 AM) Potassium Lvl [3.5-5.1 mEq/L] 1.0 mMol/L (07/05/18 6:01 AM) 2.4 mMol/L *HI* (07/04/18 3:21 PM) 1.3 mMol/L (07/04/18 11:57 AM) Lactic Acid Lvl [0.5-2.2 mMol/L] 61 unit/L *LOW* (07/04/18 10:23 AM) Lipase Lvl [73-393 unit/L] 33.8 % (07/07/18 5:33 AM) 19.9 % *LOW* (07/06/18 6:27 AM) 32.2 % (07/05/18 6:01 AM) Lymphocytes [20.0-40.0 %] 23.9 pg *LOW* (07/07/18 5:33 AM) 24.0 pg *LOW* (07/06/18 6:27 AM) 23.3 pg *LOW* (07/05/18 6:01 AM) MCH [27.0-31.0 pg] 31.0 g/dL *LOW* (07/07/18 5:33 AM) 32.1 g/dL (07/06/18 6:27 AM) 30.9 g/dL *LOW* (07/05/18 6:01 AM) MCHC [32.0-36.0 g/dL] 77.0 fL *LOW* (07/07/18 5:33 AM) 74.8 fL *LOW* (07/06/18 6:27 AM) 75.3 fL *LOW* (07/05/18 6:01 AM) MCV [80.0-94.0 fL] 1+ *ABN* (07/07/18 5:33 AM) 2+ *ABN* (07/06/18:27 AM) 1+ *ABN* (07/05/18 6:01 AM) Microcyte [None Seen] 7.8 % (07/07/18 5:33 AM) 6.7 % (07/06/18 6:27 AM) 6.6 % (07/05/18 6:01 AM) Monocytes [2.0-12.0 %] 9.1 fL (07/07/18 5:33 AM) 9.0 fL (07/06/18 6:27 AM) 10.5 fL *HI* (07/05/18 6:01 AM) MPV [7.4-10.4 fL] 142 mEq/L (07/07/18 5:33 AM) 141 mEq/L (07/06/18 6:27 AM) 140 mEq/L (07/05/18 6:01 AM) Sodium Lvl [135-145 mEq/L] Positive *ABN* (07/04/18 12:41 PM) U Opiate Scr [Negative] Negative *NA* (07/04/18 12:41 PM) U Phencyclidine Scr [Negative] 394 K/CMM (07/07/18 5:33 AM) 374 K/CMM (07/06/18 6:27 AM) 348 K/CMM (07/05/18 6:01 AM) Platelet [133-450 K/CMM] 55.7 % (07/07/18 5:33 AM) 70.8 % (07/06/18 6:27 AM) 55.4 % (07/05/18 6:01 AM) Segs [45.0-75.0 %] 8.5 g/dL *HI* (07/07/18 5:33 AM) 7.9 g/dL (07/06/18 6:27 AM) 8.0 g/dL (07/05/18 6:01 AM) Total Protein [6.4-8.4 g/dL] 4.01 M/CMM *LOW* (07/07/18 5:33 AM) 3.75 M/CMM *LOW* (07/06/18 6:27 AM) 3.90 M/CMM *LOW* (07/05/18 6:01 AM) RBC [4.70-6.10 M/CMM] Normal (07/04/18 10:23 AM) RBC Morph 24.1 % *HI* (07/07/18 5:33 AM) 24.6 % *HI* (07/06/18 6:27 AM) 24.8 % *HI* (07/05/18 6:01 AM) RDW [11.5-14.5 %] 0.5 mg/dL (07/07/18 5:33 AM) 0.2 mg/dL (07/06/18 6:27 AM) 0.3 mg/dL (07/05/18 6:01 AM) Bili Total [0.2-1.3 mg/dL] Positive *ABN* (07/04/18 12:41 PM) U Cannab Scr [Negative] <0.02 ng/mL (07/04/18 10:23 AM) Troponin-I [0.00-0.40 ng/mL] Occasional /HPF *NA* (07/04/18 12:41 PM) UA Bacteria [None Seen /HPF] Negative *NA* (07/04/18 12:41 PM) UA Bili [Negative] Moderate *ABN* (07/04/18 12:41 PM) UA Blood [Negative] Light Yellow *NA* (07/04/18 12:41 PM) UA Color [Yellow] Negative mg/dL *NA* (07/04/18 12:41 PM) UA Glucose [Negative mg/dL] Negative mg/dL *NA* (07/04/18 12:41 PM) UA Ketones [Negative mg/dL] Small *ABN* (07/04/18 12:41 PM) UA Leuk Est [Negative] Few /LPF *NA* (07/04/18 12:41 PM) UA Mucus [None Seen /LPF] Negative (07/04/18 12:41 PM) UA Nitrite [Negative] 6.0 (07/04/18 12:41 PM) UA pH [5.0-8.0] 100 mg/dL *ABN* (07/04/18 12:41 PM) UA Protein [Negative mg/dL] 2 /HPF (07/04/18 12:41 PM) UA RBC [0-2 /HPF] 1.009 (07/04/18 12:41 PM) UA Spec Grav [<=1.030] Occasional /LPF *NA* (07/04/18 12:41 PM) UA Sq Epi [Few /LPF] Clear (07/04/18 12:41 PM) UA Turbidity [Clear] <=1.0 mg/dL *NA* (07/04/18 12:41 PM) UA Urobilinogen [0.1-1.0 mg/dL] 4 /HPF (07/04/18 12:41 PM) UA WBC [0-5 /HPF] 11.6 K/CMM *HI* (07/07/18 5:33 AM) 8.1 K/CMM (07/06/18 6:27 AM) 12.6 K/CMM *HI* (07/05/18 6:01 AM) WBC [3.7-10.4 K/CMM] 1Result Comment: Due to occassional clumps, the actual count may be slightly higher. 2Result Comment: The eGFR is calculated using [...] be mul tiplied by the estimated BMI. Immunizations Given and Recorded Vaccine Date Status [...] and Plan Extracted from: Title: Hospitalist progress note Author: Gracy Jimenez MD Date: 07/07/18 [...] urinary tract infection and [facility]. He was readmitted for altered mental status [...] counselled . 7. Concern for para suicide-patient- a damantly denies any suicidal ideation or intent [...] during the discussion DC back to personal half-way. Patient was denied from his previous personal half-way and perinatal social worker is going to find him a new facility.
--- OUTSIDE RECORDS SUMMARY | 2020-03-18 10:19 | XMS REPORT | Summary of Care ---
Author Author [facility] Organization [facility] Address Unknown Phone Unavailable Encounter MOJGAN Jacques(AMARI) [id number] Date(s): 11/04/19 - 11/18/19 [facility] [address] [place] [address]- Discharge Disposition: Home or Self Care Attending Physician: Silvestre Turcios MD Admitting Physician: Silvestre Turcios MD Vital Signs 1 2 3 Most recent to oldest [Reference Range]: 182.88 cm (11/04/19 2:09 PM) Height 98 DegF (11/18/19 4:44 PM) 98.3 DegF (11/18/19 8:00 AM) 99.7 DegF *HI* (11/18/19 6:21 AM) Temperature Oral [96.4-99.1 DegF] 115/77 mmHg (11/18/19 4:44 PM) 90/57 mmHg (11/18/19 8:00 AM) 133/94 mmHg (11/17/19 11:19 PM) Blood Pressure [90-140/60-90 mmHg] 20 BRMIN (11/17/19 11:19 PM) 19 BRMIN (11/16/19 12:00 AM) 18 BRMIN (11/14/19 11:36 PM) Respiratory Rate [14-20 BRMIN] 102 bpm *HI* (11/18/19 4:44 PM) 50 bpm *LOW* (11/18/19 8:00 AM) 108 bpm *HI* (11/18/19 12:04 AM) Peripheral Pulse Rate [60-100 bpm] 84.091 kg (11/04/19 2:09 PM) Weight 25.14 m2 (11/04/19 2:09 PM) Body Mass Index Problem List Condition Effective Dates Status Health Status Caleb Eden 05/22/18 Active med)1, 2, 3, 4, 5, [...] Acinetobacter collected from urine 7Problem added by [employer] Expert. 8stool - 4/11/17 9Problem added by Discern Expert. 10Blood (CRE), [...] TAB, Q6H, Dosing Weight 79.545, kg, PRN For Temp > 100.4 F, Start date: 11/04/19 12:13:00 CDT, Duration: 30 day, Stop date: 12/04/19 12:12:00 CDT, 0 Notes: Do not exceed 4 gm/day. (Same as: Tylenol) Start Date: 11/04/19 Stop Date: 11/18/19 Status: Discontinued Artificial Tears 1 drp, Route: Each Affected Eye, QID, Drug form: SOLN, PRN Dry Eyes, Start date: 11/04/19 12:13:00 CDT, Duration: 30 day, Stop date: 12/04/19 12:12:00 CDT, 0 Start Date: 11/04/19 Stop Date: 11/18/19 Status: Discontinued bisacodyl 10 mg, 1 supp, Route: AL, Drug form: SUPP, Daily, Dosing Weight 79.545, kg, PRN Constipation, Start date: 11/04/19 12:13:00 CDT, Duration: 30 day, Stop date: 12:12:00 CDT, 0 Notes: (Same As: Dulcolax, Bisco-Lax) Start Date: 11/04/19 Stop Date: 11/18/19 Status: Discontinued carvedilol 12.5 mg, PO, BID, 0 Refill(s) Start Date: 11/04/19 Status: Ordered carvedilol 12.5 mg, 1 tab, Route: PO, Drug form: TAB, BID, Dosing Weight 84.091, kg, Start date: 11/04/19 17:00:00 CDT, Duration: 30 day, Stop date: 12/04/19 9:00:00 CDT, 0 Notes: Give with food. (Same As: Coreg) Start Date: 11/04/19 Stop Date: 11/15/19 Status: Discontinued Cathflo Activase 2 mg injection 2 mg, 2 mL, Route: IV Central, Drug form: INJ, ONCE, Dosing Weight 84.091, kg, S tart date: 11/16/19 17:16:00 CDT, Stop date: 11/16/19 17:16:00 CDT, 0 Notes: "Syringe for catheter clearance or interventional radiology use.[place]stit [place] each vial of Cathflo Activase with 2.2 ml Sterile Water resulting in a 1 mg/ ml solution. (Same as: Activase) MEDICATION WASTE Product Size: 2 mgProd uct Wasted: ___ mg Start Date: 11/16/19 Stop Date: 11/16/19 Status: Completed cefepime + Sodium Chloride 0.9% IV 100 mL 1 gm, Route: IVPB, [id number], Dosing Weight 84.091, kg, (CrCl >/= 60 ml/min), Start date: 11/04/19 21:00:00 CDT, Stop date: 11/17/19 14:00:00 CDT, ABX Indication: Skin/Soft Tissue Infection, 0 Notes: (Same As: Maxipime) MEDICATION WASTE Product Size: 1000 mgProduc t Wasted: ___ mg Start Date: 11/04/19 Stop Date: 11/15/19 Status: Discontinued CeleXA 10 mg, 1 tab, Route: PO, Drug form: TAB, Bedtime, Dosing Weight 84.091, kg, Star t date: 11/11/19 21:00:00 CDT, Duration: 30 day, Stop date: 12/10/19 21:00:00 CD T, 0 Start Date: 11/11/19 Stop Date: 11/18/19 Status: Discontinued Cepacol Sore Throat 15 mg-3.6 mg mucous membrane lozenge 1 lozenge, Route: MUCOUS MEM, Drug Form: BIRGIT, Dosing Weight 79.545, kg, Q4H, PRN Sore Throat, Start date: 11/04/19 12:13:00 CDT, Duration: 30 day, Stop date: 12:12:00 CDT, 0 Notes: Same as: Cepacol Start Date: 11/04/19 Stop Date: 11/18/19 Status: Discontinued Chloraseptic 1.4% spray 1 spray, Route: TOP, Q6H, Drug form: SPRY, PRN Sore Throat, Start date: 11/04/19 12:13:00 CDT, Duration: 30 day, Stop date: 12/04/19 12:12:00 CDT, 0 Notes: Chloraseptic Camino(Same as: Chloraseptic, Sore Throat Camino)WASTE: F/P - Black; E - [employer] Trash Bin Start Date: 11/04/19 Stop Date: 11/18/19 Status: Discontinued citalopram 10 mg oral tablet 10 mg = 1 tab, PO, Bedtime, 0 Refill(s) Start Date: 11/16/19 Status: Ordered cyclobenzaprine 10 mg oral tablet 10 mg = 1 tab, PO, TID, PRN Spasm, 0 Refill(s) Start Date: 11/16/19 Status: Ordered dexamethasone (ANES) Route: IV, Drug form: INJ, ONCE, Stop date: 11/10/19 15:50:00 CDT Start Date: 11/10/19 Stop Date: 11/10/19 Status: Completed Dextrose 50% Syringe (D50W) 12.5 gm, 25 mL, Route: IVP, Drug Form: INJ, Dosing Weight 79.545, kg, PRN, PRN B lood Glucose Results, Start date: 11/04/19 12:13:00 CDT, Duration: 30 day, Stop date: 12/04/19 12:12:00 CDT, 0 Start Date: 11/04/19 Stop Date: 11/18/19 Status: Discontinued Dextrose 50% Syringe (D50W) 25 gm, 50 mL, Route: IVP, Drug Form: INJ, Dosing Weight 79.545, kg, PRN, PRN Blo od Glucose Results, Start date: 11/04/19 12:13:00 CDT, Duration: 30 day, Stop da te: 12/04/19 12:12:00 CDT, 0 Start Date: 11/04/19 Stop Date: 11/18/19 Status: Discontinued Dilaudid 2 mg, 1 tab, Route: PO, Drug form: TAB, Q6H, Dosing Weight 84.091, kg, PRN, Star t date: 11/08/19 8:18:00 CDT, Duration: 30 day, Stop date: 12/08/19 8:17:00 CDT, Pain Score 4-10, 0 Notes: (Same as: Dilaudid) Start Date: 11/08/19 Stop Date: 11/11/19 Status: Discontinued Dilaudid 2 mg, 1 tab, Route: PO, Drug form: TAB, Q4H, Dosing Weight 84.091, kg, PRN, Star t date: 11/11/19 8:24:00 CDT, Duration: 30 day, Stop date: 12/11/19 8:23:00 CDT, Pain Score 4-10, 0 Notes: (Same as: Dilaudid) Start Date: 11/11/19 Stop Date: 11/18/19 Status: Discontinued diphenhydrAMINE 25 mg, 1 tab, Route: PO, Drug form: TAB, Q6H, Dosing Weight 79.545, kg, PRN as n eeded for allergy symptoms, Start date: 11/04/19 12:13:00 CDT, Duration: 30 day, Stop date: 12/04/19 12:12:00 CDT, 0 Start Date: 11/04/19 Stop Date: 11/18/19 Status: Discontinued Ditropan 5 mg, 1 tab, Route: PO, Drug form: TAB, TID, Dosing Weight 84.091, kg, Start river e: 11/16/19 9:00:00 CDT, Duration: 30 day, Stop date: 12/15/19 17:00:00 CDT, 0 Notes: Same as: Ditropan) Start Date: 11/16/19 Stop Date: 11/18/19 Status: Discontinued docusate 100 mg, 1 cap, Route: PO, Drug form: CAP, BID, Dosing Weight 79.545, kg, PRN as needed for constipation, Start date: 11/04/19 12:13:00 CDT, Duration: 30 day, St op date: 12/04/19 12:12:00 CDT, 0 Notes: (Same as: Colace) (Do Not Crush) Start Date: 11/04/19 Stop Date: 11/18/19 Status: Discontinued DuoNeb inhalation solution 3 ml, Route: NEB, Drug Form: SOLN, Dosing Weight 79.545, kg, PRN, PRN Respirator y Pathway, Start date: 11/04/19 12:13:00 CDT, Duration: 30 day, Stop date: 12/03 12:12:00 CDT, 0 Notes: (Same as: Duoneb) Start Date: 11/04/19 Stop Date: 11/18/19 Status: Discontinued enoxaparin 40 mg/0.4 mL subcutaneous solution 40 mg = 0.4 mL, SUB-Q, [id number], 0 Refill(s) Start Date: 11/16/19 Status: Ordered fentaNYL (ANES) Route: IV, Drug form: INJ, ONCE, Stop date: 11/10/19 15:48:00 CDT Start Date: 11/10/19 Stop Date: 11/10/19 Status: Completed fentaNYL (ANES) Route: IV, Drug form: INJ, ONCE, Stop date: 11/05/19 15:50:00 CDT Start Date: 11/05/19 Stop Date: 11/05/19 Status: Completed Ferrlecit + Sodium Chloride 0.9% IV 100 mL 125 mg, 10 mL, Route: IVPB, Daily, Dosing Weight 84.091, kg, Start date: 0 18:37:00 CDT, Duration: 8 day, Stop date: 11/18/19 9:00:00 CDT, 0 Notes: (sodium ferric gluconate complex (elemental iron) 62.5 mg/5 ml INJ)"Limit ed stability. Use immediately after admixture"(Same as: Ferrlecit) MEDICAT ION WASTE Product Size: 62.5 mgProduct Wasted: ___ mg Start Date: 11/10/19 Stop Date: 11/18/19 Status: Completed Flexeril 10 mg, 1 tab, Route: PO, Drug form: TAB, TID, Dosing Weight 84.091, kg, PRN Spas m, Start date: 11/10/19 7:44:00 CDT, Duration: 30 day, Stop date: 12/10/19 7:43: 00 CDT, 0 Notes: (Same As: Flexeril) Start Date: 11/10/19 Stop Date: 11/18/19 Status: Discontinued glucagon 1 mg, Route: IM, Drug form: PDR/INJ, PRN, Dosing Weight 79.545, kg, PRN Blood Gl ucose Results, Start date: 11/04/19 12:13:00 CDT, Duration: 30 day, Stop date: 0 12/04/19 12:12:00 CDT, 0 Start Date: 11/04/19 Stop Date: 11/18/19 Status: Discontinued glycopyrrolate (ANES) Route: IV, Drug form: INJ, ONCE, Stop date: 11/05/19 16:18:00 CDT Start Date: 11/05/19 Stop Date: 11/05/19 Status: Completed hydrALAZINE 10 mg, 0.5 mL, Route: IVP, Drug form: INJ, Q4H, Dosing Weight 79.545, kg, PRN Hy pertension, Priority: Routine, Start date: 11/04/19 12:13:00 CDT, Duration: 30 d ay, Stop date: 12/04/19 12:12:00 CDT, 0 Notes: (Same as: Apresoline)Push over 5 minutes Start Date: 11/04/19 Stop Date: 11/18/19 Status: Discontinued hydromorphone 2 mg oral tablet 2 mg = 1 tab, PO, Q6H, PRN Pain Score 4-10, # 8 tab, 0 Refill(s), Pharmacy: [id number] Start Date: 11/08/19 Stop Date: 11/10/19 Status: Completed hydromorphone 2 mg oral tablet 2 mg = 1 tab, PO, Q4H, PRN Pain Score 4-10, 0 Refill(s) Start Date: 11/16/19 Status: Ordered Lactated Ringers Injection IV (ANES) 1000 mL Route: IV, Total Volume: 1,000, Start date: 11/05/19 14:54:00 CDT, Stop date: 15:54:00 CDT Start Date: 11/05/19 Stop Date: 11/05/19 Status: Completed Lactated Ringers Injection IV 1,000 mL 1,000 mL, Rate: 75 ml/hr, Infuse over: 13.3 hr, Route: IV, Dosing Weight 84.091 kg, Total Volume: 1,000, Start date: 11/05/19 13:46:00 CDT, Duration: 1 day, Sto p date: 11/06/19 13:45:00 CDT, 2.08, m2, 0 Start Date: 11/05/19 Stop Date: 11/05/19 Status: Discontinued lactulose 10 g/15 mL oral syrup 20 gm, 30 ml, Route: PO, Drug form: SYRP, BID, Dosing Weight 79.545, kg, PRN Con stipation, Start date: 11/04/19 12:13:00 CDT, Duration: 30 day, Stop date: 12/03 12:12:00 CDT, 0 Notes: (Same as:Chronulac) Start Date: 11/04/19 Stop Date: 11/18/19 Status: Discontinued lidocaine (ANES) Route: IV, Drug form: INJ, ONCE, Stop date: 11/10/19 15:49:00 CDT Start Date: 11/10/19 Stop Date: 11/10/19 Status: Completed lidocaine (ANES) Route: IV, Drug form: INJ, ONCE, Stop date: 11/05/19 15:40:00 CDT Start Date: 11/05/19 Stop Date: 11/05/19 Status: Completed lidocaine topical patch (5% film) 1 patch, Route: TOP, Daily, Drug form: FILM, PRN Pain Score 1-3, Start date: 09/23 12:13:00 CDT, Duration: 30 day, Stop date: 12/04/19 12:12:00 CDT, 0 Start Date: 11/04/19 Stop Date: 11/18/19 Status: Discontinued Lovenox 40 mg, 0.4 mL, Route: SUB-Q, Drug form: INJ, [id number], Dosing Weight 84.091, kg, Start date: 11/04/19 21:00:00 CDT, Duration: 30 day, Stop date: 12/03/19 21:00: 00 CDT, 0 Notes: (Same as: Lovenox) Start Date: 11/04/19 Stop Date: 11/18/19 Status: Discontinued Lyrica 100 mg, 2 cap, Route: PO, Drug form: CAP, Bedtime, Dosing Weight 84.091, kg, Sta rt date: 11/04/19 21:00:00 CDT, Duration: 30 day, Stop date: 12/03/19 21:00:00 C DT, 0 Notes: Same as Lyrica Start Date: 11/04/19 Stop Date: 11/18/19 Status: Discontinued Lyrica 100 mg oral capsule 100 mg = 1 cap, PO, Bedtime, 0 Refill(s) Start Date: 11/04/19 Status: Ordered Maalox Advanced Regular Strength SUSP 30 mL, Route: PO, Drug Form: SUSP, Dosing Weight 79.545, kg, QID-After Meals, AL N as needed for indigestion, Routine, Start date: 11/04/19 12:13:00 CDT, Duratio n: 30 day, Stop date: 12/04/19 12:12:00 CDT, 0 Notes: (aluminum hydroxide-magnesium hyd-simethicone [phone]/5ml 30 ml ud S US) Start Date: 11/04/19 Stop Date: 11/18/19 Status: Discontinued melatonin 3 mg, 1 tab, Route: PO, Drug form: TAB, Bedtime, Dosing Weight 79.545, kg, PRN I nsomnia, Start date: 11/04/19 12:13:00 CDT, Duration: 30 day, Stop date: 0 12:12:00 CDT, 0 Notes: (Same as: Melatonin) Start Date: 11/04/19 Stop Date: 11/18/19 Status: Discontinued metoclopramide (ANES) Route: IV, Drug form: INJ, ONCE, Stop date: 11/10/19 15:50:00 CDT Start Date: 11/10/19 Stop Date: 11/10/19 Status: Completed midazolam (ANES) Route: IV, Drug form: SOLN, ONCE, Stop date: 11/10/19 15:37:00 CDT Start Date: 11/10/19 Stop Date: 11/10/19 Status: Completed midazolam (ANES) Route: IV, Drug form: SOLN, ONCE, Stop date: 11/05/19 15:40:00 CDT Start Date: 11/05/19 Stop Date: 11/05/19 Status: Completed Mucinex 600 mg, 1 tab, Route: PO, Drug form: ERTAB, Q12H, Dosing Weight 79.545, kg, PRN Congestion, Start date: 11/04/19 12:13:00 CDT, Duration: 30 day, Stop date: 09/23 12:12:00 CDT, 0 Start Date: 11/04/19 Stop Date: 11/18/19 Status: Discontinued neostigmine (ANES) Route: IV, Drug form: INJ, ONCE, Stop date: 11/05/19 16:18:00 CDT Start Date: 11/05/19 Stop Date: 11/05/19 Status: Completed nicotine 21 mg, 1 patch, Route: TOP, Drug form: ERFILM, Daily, Dosing Weight 79.545, kg, PRN as needed for smoking cessation, Start date: 11/04/19 12:13:00 CDT, Duration : 30 day, Stop date: 12/04/19 12:12:00 CDT, 0 Notes: (Same as: Habitrol)"Remove old patch before application of new patch"WAST E: F/P - P Waste Black; E - P Waste Black Start Date: 11/04/19 Stop Date: 11/18/19 Status: Discontinued norepinephrine (ANES) Route: IV, Drug form: INJ, ONCE, Stop date: 11/05/19 15:55:00 CDT Start Date: 11/05/19 Stop Date: 11/05/19 Status: Completed NS (Bolus) IV 500 mL, 500 ml/hr, Infuse Over: 1 hr, Route: IV, 500, Drug form: INJ, ONCE, Prio rity: STAT, Dosing Weight 84.091 kg, Start date: 11/17/19 18:07:00 CDT, Stop river e: 11/17/19 18:07:00 CDT, 0 Start Date: 11/17/19 Stop Date: 11/17/19 Status: Completed NS 1,000 mL 1,000 mL, Rate: 100 ml/hr, Infuse over: 10 hr, Route: IV, Dosing Weight 84.091 k g, Total Volume: 1,000, Start date: 11/09/19 14:48:00 CDT, Duration: 30 day, Sto p date: 12/09/19 14:47:00 CDT, 2.08, m2, 0 Start Date: 11/09/19 Stop Date: 11/11/19 Status: Discontinued NS 1,000 mL 1,000 mL, Rate: 75 ml/hr, Infuse over: 13.3 hr, Route: IV, Dosing Weight 84.091 kg, Total Volume: 1,000, Start date: 11/08/19 19:54:00 CDT, Duration: 30 day, St op date: 12/08/19 19:53:00 CDT, 2.08, m2, 0 Start Date: 11/08/19 Stop Date: 11/18/19 Status: Discontinued Nurse please update Height, Weight, Allergy info in CARE4 Nurse please update Height, Weight, Allergy info in CARE4, reminder, Drug form: MISC, Route: MISC, Q1H, 11/04/19 14:00:00 CDT, Duration: 4 hr, Stop date: 17:00:00 CDT, 0 Start Date: 11/04/19 Stop Date: 11/04/19 Status: Deleted Omnipaque 300 injectable solution 100 mL, Route: IVP, Drug Form: SOLN, Dosing Weight 84.091, kg, ONCALL, GFR > 45 mL/min, Start date: 11/04/19 23:00:00 CDT, Duration: 1 doses or times, 0 Notes: (Same as:Omnipaque 300).WASTE: F/P - Black; E - Municipal Trash Bin Start Date: 11/04/19 Stop Date: 11/18/19 Status: Discontinued ondansetron 4 mg, 2 mL, Route: IVP, Drug form: INJ, Q6H, Dosing Weight 79.545, kg, PRN Nause a & Vomiting, Start date: 11/04/19 12:13:00 CDT, Duration: 30 day, Stop date: 12/04/19 12:12:00 CDT, 0 Notes: (Same as: Zofran) MEDICATION WASTE Product Size: 4 mgProduct Was reinaldo: ___ mg Start Date: 11/04/19 Stop Date: 11/18/19 Status: Discontinued ondansetron (ANES) Route: IV, Drug form: INJ, ONCE, Stop date: 11/10/19 15:50:00 CDT Start Date: 11/10/19 Stop Date: 11/10/19 Status: Completed ondansetron (ANES) Route: IV, Drug form: INJ, ONCE, Stop date: 11/05/19 15:55:00 CDT Start Date: 11/05/19 Stop Date: 11/05/19 Status: Completed oxybutynin 5 mg, 1 tab, Route: PO, Drug form: TAB, PRN, Dosing Weight 84.091, kg, PRN Pain Score 4-6, Start date: 11/04/19 16:11:00 CDT, Duration: 30 day, Stop date: 12/03 16:10:00 CDT, 0 Notes: Same as: Ditropan) Start Date: 11/04/19 Stop Date: 11/18/19 Status: Discontinued oxybutynin 5 mg oral tablet 5 mg = 1 tab, PO, TID, PRN Other-See Comments, # 30 tab, 0 Refill(s) Start Date: 11/04/19 Stop Date: 11/04/19 Status: Discontinued oxybutynin 5 mg oral tablet 5 mg = 1 tab, PO, TID, 0 Refill(s) Start Date: 11/16/19 Status: Ordered oxyCODONE 5 mg oral tablet, immediate release 5 mg, 1 tab, Route: PO, Drug form: TAB, Q6H, Dosing Weight 84.091, kg, PRN Pain Score 4-6, Start date: 11/04/19 16:42:00 CDT, Duration: 30 day, Stop date: 12/03 16:41:00 CDT, 0 Notes: (Same as: Roxicodone) Start Date: 11/04/19 Stop Date: 11/08/19 Status: Discontinued phenylephrine (ANES) Route: IV, Drug form: INJ, ONCE, Stop date: 11/10/19 15:50:00 CDT Start Date: 11/10/19 Stop Date: 11/10/19 Status: Completed phenylephrine (ANES) Route: IV, Drug form: INJ, ONCE, Stop date: 11/05/19 15:50:00 CDT Start Date: 11/05/19 Stop Date: 11/05/19 Status: Completed please draw and send vanc level to lab please draw and send vanc level to lab, reminder, Drug form: MISC, Route: MISC, ONCE, Priority: NOW, 11/11/19 16:05:00 CDT, Stop date: 11/11/19 16:05:00 CDT, 0 Start Date: 11/11/19 Stop Date: 11/11/19 Status: Completed Please hold noon vanc on 11/08 until trough is collected. Please hold noon vanc on 11/08 until trough is collected., Reminder, Drug form: NE SC, Route: MISC, ONCE, 11/09/19 11:08:00 CDT, Stop date: 11/09/19 11:08:00 CDT, 0 Start Date: 11/09/19 Stop Date: 11/09/19 Status: Completed polyethylene glycol 3350 17 gm, 1 pkt, Route: PO, Drug form: PWDR, Daily, Dosing Weight 79.545, kg, PRN C onstipation, Start date: 11/04/19 12:13:00 CDT, Duration: 30 day, Stop date: 09/23 12:12:00 CDT, 0 Notes: Dissolve in 8 oz of water or juice.(Same as: Miralax) Start Date: 11/04/19 Stop Date: 11/18/19 Status: Discontinued propofol (ANES) Route: IV, Drug form: INJ, ONCE, Stop date: 11/10/19 15:48:00 CDT Start Date: 11/10/19 Stop Date: 11/10/19 Status: Completed propofol (ANES) Route: IV, Drug form: INJ, ONCE, Stop date: 11/05/19 15:40:00 CDT Start Date: 11/05/19 Stop Date: 11/05/19 Status: Completed propofol (ANES) Route: IV, Drug form: INJ, ONCE, Stop date: 11/05/19 16:18:00 CDT Start Date: 11/05/19 Stop Date: 11/05/19 Status: Completed Protonix 40 mg, 1 tab, Route: PO, Drug form: ECTAB, Daily, Dosing Weight 79.545, kg, Star t date: 11/05/19 9:00:00 CDT, Duration: 30 day, Stop date: 12/04/19 9:00:00 CDT, 0 Notes: Tablet should not be chewed or crushed.(Same as: Protonix) Start Date: 11/05/19 Stop Date: 11/18/19 Status: Discontinued remove patch Route: TOP, Bedtime, Drug form: ERFILM, PRN, Start date: 11/04/19 14:29:00 CDT, Duration: 30 day, Stop date: 12/04/19 14:28:00 CDT, remove patch, 0 Notes: Remove patch 12 hours after application each day. Start Date: 11/04/19 Stop Date: 11/18/19 Status: Discontinued Rocephin + sterile water 20 mL 2 gm, Route: IVP, [id number], Dosing Weight 84.091, kg, Start date: 11/16/19 11:00: 00 CDT, Duration: 14 day, Stop date: 11/29/19 11:00:00 CDT, ABX Indication: Bone /Joint Infection, 0 Notes: (Same As: Rocephin). Start Date: 11/16/19 Stop Date: 11/18/19 Status: Discontinued Rocephin 1 g injection 2 gm, IV, Daily, X 56 day, # 56 ea, 0 Refill(s), other Start Date: 11/16/19 Stop Date: 01/11/20 Status: Ordered rocuronium (ANES) Route: IV, Drug form: INJ, ONCE, Stop date: 11/10/19 15:50:00 CDT Start Date: 11/10/19 Stop Date: 11/10/19 Status: Completed rocuronium (ANES) Route: IV, Drug form: INJ, ONCE, Stop date: 11/05/19 15:40:00 CDT Start Date: 11/05/19 Stop Date: 11/05/19 Status: Completed SEROquel 25 mg, 1 tab, Route: PO, Drug form: TAB, Daily, Dosing Weight 79.545, kg, PRN Ag itation, Start date: 11/04/19 12:13:00 CDT, Duration: 30 day, Stop date: 0 12:12:00 CDT, 0 Notes: (Same as: SEROquel) Start Date: 11/04/19 Stop Date: 11/18/19 Status: Discontinued simethicone 80 mg, 1 tab, Route: CHEW, Drug form: CHEWTAB, QID-After Meals, Dosing Weight 79 .545, kg, PRN as needed for gas, Start date: 11/04/19 12:13:00 CDT, Duration: 30 day, Stop date: 12/04/19 12:12:00 CDT, 0 Notes: (Same as: Myvicentaon) Start Date: 11/04/19 Stop Date: 11/18/19 Status: Discontinued Sodium Chloride 0.9% IV (ANES) 1000 mL Route: IV, Total Volume: 1,000, Start date: 11/10/19 15:07:00 CDT, Stop date: 16:07:00 CDT Start Date: 11/10/19 Stop Date: 11/10/19 Status: Completed sugammadex (ANES) Route: IV, Drug form: SOLN, ONCE, Stop date: 11/10/19 15:50:00 CDT Start Date: 11/10/19 Stop Date: 11/10/19 Status: Completed sugammadex (ANES) Route: IV, Drug form: SOLN, ONCE, Stop date: 11/05/19 16:18:00 CDT Start Date: 11/05/19 Stop Date: 11/05/19 Status: Completed Tessalon Perles 100 mg, 1 cap, Route: PO, Drug form: CAP, TID, Dosing Weight 79.545, kg, PRN Cou gh, Start date: 11/04/19 12:13:00 CDT, Duration: 30 day, Stop date: 12/04/19 12: 12:00 CDT, 0 Start Date: 11/04/19 Stop Date: 11/18/19 Status: Discontinued trazodone 50 mg, 1 tab, Route: PO, Drug form: TAB, Bedtime, Dosing Weight 79.545, kg, PRN Insomnia, Start date: 11/04/19 12:13:00 CDT, Duration: 30 day, Stop date: 12:12:00 CDT, 0 Notes: (Same As: Sukhjinderel) Start Date: 11/04/19 Stop Date: 11/18/19 Status: Discontinued vanc trough 2300 on 11/06 vanc trough 2300 on 11/06, don't give dose before lab is drawn, Drug form: MISC, R oute: MISC, ONCE, 11/07/19 22:30:00 CDT, Stop date: 11/07/19 22:30:00 CDT, 0 Start Date: 11/07/19 Stop Date: 11/07/19 Status: Completed vanco level (random) vanco level (random), reminder, Drug form: MISC, Route: MISC, ONCE, 11/13/19 17: 00:00 CDT, Stop date: 11/13/19 17:00:00 CDT, 0 Start Date: 11/13/19 Stop Date: 11/14/19 Status: Completed vancomycin 1,000 mg, Route: IVPB, Drug form: INJ, [id number], Dosing Weight 84.091, kg, Start date: 11/04/19 21:00:00 CDT, Duration: 14 day, Stop date: 11/18/19 9:00:00 CDT, ABX Indication: Skin/Soft Tissue Infection Start Date: 11/04/19 Stop Date: 11/04/19 Status: Deleted vancomycin + Sodium Chloride 0.9% IV 250 mL 1,250 mg, Route: IVPB, ONCE, Start date: 11/09/19 13:02:00 CDT, Stop date: 11/08 13:02:00 CDT, ABX Indication: Bone/Joint Infection, 0 Notes: (Same As: Vancocin)Infusion rate< 1000 mg: infuse over 1 [id number] - 1500 mg: infuse over 1.5 [id number] - 2000 mg: infuse over 2 hours> 2001 mg: infuse over 2.5 hoursFor adult patients only: Round to nearest 250 mg per Medical Staff approval MEDICATION WASTE Product Size: 1000 mgProduct Wasted: ___ mg Start Date: 11/09/19 Stop Date: 11/09/19 Status: Completed vancomycin + Sodium Chloride 0.9% IV 250 mL 1,000 mg, Route: IVPB, ONCE, Start date: 11/04/19 21:03:00 CDT, Stop date: 11/03 21:03:00 CDT, ABX Indication: Bone/Joint Infection, 0 Notes: TIME CRITICAL MEDICATION(Same As: Vancocin)Infusion rate< 1000 mg: infuse over 1 [id number] - 1500 mg: infuse over 1.5 [id number] - 2000 mg: infuse over 2 hours> 2001 mg: infuse over 2.5 hoursFor adult patients only: Round to nearest 250 mg per Medical Staff approval MEDICATION WASTE Product Size: 1000 mgProduct Wasted: ___ mg Start Date: 11/04/19 Stop Date: 11/04/19 Status: Completed vancomycin + Sodium Chloride 0.9% IV 250 mL 750 mg, Route: IVPB, [id number], Start date: 11/15/19 20:00:00 CDT, Stop date: 12/02 10/21 20:00:00 CDT, ABX Indication: Bone/Joint Infection, 0 Notes: (Same As: Vancocin)Infusion rate< 1000 mg: infuse over 1 [id number] - 1500 mg: infuse over 1.5 [id number] - 2000 mg: infuse over 2 hours> 2001 mg: infuse over 2.5 hoursFor adult patients only: Round to nearest 250 mg per Medical Staff approval MEDICATION WASTE Product Size: 1000 mgProduct Wasted: ___ mg Start Date: 11/15/19 Stop Date: 11/16/19 Status: Discontinued vancomycin + Sodium Chloride 0.9% IV 250 mL 1.25 gm, Route: IV, ONCE, Dosing Weight 84.091, kg, Start date: 11/11/19 16:55:0 0 CDT, Stop date: 11/11/19 16:55:00 CDT, ABX Indication: Bone/Joint Infection, 0 Notes: TIME CRITICAL MEDICATION(Same As: Vancocin)Infusion rate< 1000 mg: infuse over 1 [id number] - 1500 mg: infuse over 1.5 [id number] - 2000 mg: infuse over 2 hours> 2001 mg: infuse over 2.5 hoursFor adult patients only: Round to nearest 250 mg per Medical Staff approval MEDICATION WASTE Product Size: 1000 mgProduct Wasted: ___ mg Start Date: 11/11/19 Stop Date: 11/11/19 Status: Completed vancomycin + Sodium Chloride 0.9% IV 250 mL 1,000 mg, Route: IVPB, [id number], Start date: 11/06/19 23:00:00 CDT, Stop date: 12:00:00 CDT, ABX Indication: Bone/Joint Infection, 0 Notes: (Same As: Vancocin)Infusion rate< 1000 mg: infuse over 1 [id number] - 1500 mg: infuse over 1.5 [id number] - 2000 mg: infuse over 2 hours> 2001 mg: infuse over 2.5 hoursFor adult patients only: Round to nearest 250 mg per Medical Staff approval MEDICATION WASTE Product Size: 1000 mgProduct Wasted: ___ mg Start Date: 11/06/19 Stop Date: 11/09/19 Status: Discontinued vancomycin + Sodium Chloride 0.9% IV 250 mL 1,000 mg, Route: IVPB, ONCE, Start date: 11/04/19 21:51:00 CDT, Stop date: 11/03 21:51:00 CDT, ABX Indication: Bone/Joint Infection, 0 Notes: TIME CRITICAL MEDICATION(Same As: Vancocin)Infusion rate< 1000 mg: infuse over 1 [id number] - 1500 mg: infuse over 1.5 [id number] - 2000 mg: infuse over 2 hours> 2001 mg: infuse over 2.5 hoursFor adult patients only: Round to nearest 250 mg per Medical Staff approval MEDICATION WASTE Product Size: 1000 mgProduct Wasted: ___ mg Start Date: 11/04/19 Stop Date: 11/04/19 Status: Completed vancomycin + Sodium Chloride 0.9% IV 250 mL 1,500 mg, Route: IVPB, ONCE, Dosing Weight 84.091, kg, Start date: 11/13/19 18:0 2:00 CDT, Stop date: 11/13/19 18:02:00 CDT, ABX Indication: Bone/Joint Infection , 0 Notes: TIME CRITICAL MEDICATION(Same As: Vancocin)Infusion rate< 1000 mg: infuse over 1 [id number] - 1500 mg: infuse over 1.5 [id number] - 2000 mg: infuse over 2 hours> 2001 mg: infuse over 2.5 hoursFor adult patients only: Round to nearest 250 mg per Medical Staff approval MEDICATION WASTE Product Size: 1000 mgProduct Wasted: ___ mg Start Date: 11/13/19 Stop Date: 11/13/19 Status: Completed Vancomycin Pharmacy Dosing 1 ea, Route: MISCROMULO, Dosing Weight 84.091, kg, Start date: 11/04/19 21:00: 00 CDT, Duration: 14 day, Stop date: 11/18/19 20:59:00 CDT, Pharmacy to dose, AB X Indication: Skin/Soft Tissue Infection Start Date: 11/04/19 Stop Date: 11/04/19 Status: Deleted Vancomycin Pharmacy Dosing Protocol - AMY Vancomycin Pharmacy Dosing Protocol - AMY, Reminder, Drug form: MISC, Route: ROMULO HAGEN, 11/09/19 14:00:00 CDT, Stop date: 12/15/19 23:59:00 CDT, 0 Start Date: 11/09/19 Stop Date: 11/15/19 Status: Deleted Vancomycin Pharmacy Dosing Protocol - AMY Vancomycin Pharmacy Dosing Protocol - AMY, Reminder, Drug form: MISC, Route: ROMULO HAGEN, 11/09/19 12:00:00 CDT, Stop date: 12/15/19 23:59:00 CDT, 0 Start Date: 11/09/19 Stop Date: 11/09/19 Status: Deleted Xanax 1 mg oral tablet 1 mg = 1 tab, PO, BID, 0 Refill(s) Start Date: 11/04/19 Status: Ordered Xanax 1 mg oral tablet 1 mg, 1 tab, Route: PO, Drug form: TAB, BID, Dosing Weight 84.091, kg, Start river e: 11/04/19 17:00:00 CDT, Duration: 30 day, Stop date: 12/04/19 9:00:00 CDT, 0 Notes: With food or milk(Same as: Xanax) Start Date: 11/04/19 Stop Date: 11/18/19 Status: Discontinued Zofran 4 mg, 2 mL, Route: IVP, Drug form: INJ, Q8H, Dosing Weight 84.091, kg, PRN Nause a, Start date: 11/05/19 16:06:00 CDT, Duration: 30 day, Stop date: 12/05/19 16:0 5:00 CDT, 0 Notes: (Same as: Zofran) MEDICATION WASTE Product Size: 4 mgProduct Was reinaldo: ___ mg Start Date: 11/05/19 Stop Date: 11/05/19 Status: Discontinued Results 1 2 3 Most recent to oldest [Reference Range]: 485 nMol/L *HI* (11/11/19 4:32 AM) MMA Qnt [0-378 nMol/L] 12:00 *NA* (11/09/19 12:19 PM) 2330 *NA* (11/07/19 10:49 PM) Vanco Tr TND 9.8 ug/ml *NA* (11/09/19 12:19 PM) 18.8 ug/ml *NA* (11/07/19 10:49 PM) Vanco Tr 55 mL/min/1.73m2 1 *NA* (11/18/19 4:42 AM) 67 mL/min/1.73m2 2 *NA* (11/17/19 4:07 AM) 58 mL/min/1.73m2 3 *NA* (11/16/19 4:29 AM) eGFR 12 % (11/10/19 6:40 AM) % Satur Fe [12-57 %] 0.5 *LOW* (11/13/19 5:00 PM) 0.5 *LOW* (11/04/19 9:04 PM) A/G Ratio [0.7-1.6] 2.2 g/dL *LOW* (11/13/19 5:00 PM) 2.8 g/dL *LOW* (11/04/19 9:04 PM) Albumin Lvl [3.5-5.0 g/dL] 75 unit/L (11/13/19 5:00 PM) 78 unit/L (11/04/19 9:04 PM) Alk Phos [39-136 unit/L] 19 unit/L (11/13/19 5:00 PM) 16 unit/L (11/04/19 9:04 PM) ALT [0-65 unit/L] 11.4 mEq/L (11/18/19 4:42 AM) 9.3 mEq/L *LOW* (11/17/19 4:07 AM) 13.0 mEq/L (11/16/19 4:29 AM) AGAP [10.0-20.0 mEq/L] 16 unit/L (11/13/19 5:00 PM) 8 unit/L (11/04/19 9:04 PM) AST [0-37 unit/L] 17 (11/13/19 5:00 PM) 11 (11/04/19 9:04 PM) B/C Ratio [6-25] 12.0 uMol/L 4 *NA* (11/11/19 4:32 AM) Homocyst Tot [0.0-14.5 uMol/L] 20 mg/dL (11/18/19 4:42 AM) 24 mg/dL *HI* (11/17/19 4:07 AM) 27 mg/dL *HI* (11/16/19 4:29 AM) BUN [7-22 mg/dL] 7.9 mg/dL *LOW* (11/18/19 4:42 AM) 8.2 mg/dL *LOW* (11/17/19 4:07 AM) 8.4 mg/dL *LOW* (11/16/19 4:29 AM) Calcium Lvl [8.5-10.5 mg/dL] 4.91 (11/05/19 5:45 AM) CHD Risk [4.00-7.30] 167 mg/dL (11/05/19 5:45 AM) Chol [<=199 mg/dL] 105 mEq/L (11/18/19 4:42 AM) 107 mEq/L (11/17/19 4:07 AM) 109 mEq/L (11/16/19 4:29 AM) Chloride Lvl [95-109 mEq/L] 22 mEq/L *LOW* (11/18/19 4:42 AM) 22 mEq/L *LOW* (11/17/19 4:07 AM) 20 mEq/L *LOW* (11/16/19 4:29 AM) CO2 [24-32 mEq/L] 1.61 mg/dL *HI* (11/18/19 4:42 AM) 1.37 mg/dL (11/17/19 4:07 AM) 1.53 mg/dL *HI* (11/16/19 4:29 AM) Creatinine Lvl [0.50-1.40 mg/dL] 44.6 mg/L *HI* (11/04/19 9:04 PM) CRP [<=2.9 mg/L] 13.6 mIU/mL 5 *NA* (11/10/19 6:40 AM) Erythropoietin [2.6-18.5 mIU/mL] 82 ng/mL (11/10/19 6:40 AM) Ferritin Lvl [22-275 ng/mL] 9.0 ng/mL (11/10/19 6:40 AM) Folate Lvl [>=3.0 ng/mL] 4.3 g/dL *HI* (11/13/19 5:00 PM) 5.2 g/dL *HI* (11/04/19 9:04 PM) Globulin [2.7-4.2 g/dL] 107 mg/dL *HI* (11/18/19 4:42 AM) 88 mg/dL (11/17/19 4:07 AM) 89 mg/dL (11/16/19 4:29 AM) Glucose Lvl [70-99 mg/dL] 25.8 % *LOW* (11/18/19 4:42 AM) 29.1 % *LOW* (11/16/19 4:29 AM) 27.3 % *LOW* (11/14/19 5:24 AM) Hct [42.0-54.0 %] 34 mg/dL *LOW* (11/05/19 5:45 AM) HDL [>=61 mg/dL] 8.2 g/dL *LOW* (11/18/19 4:42 AM) 9.2 g/dL *LOW* (11/16/19 4:29 AM) 8.4 g/dL *LOW* (11/14/19 5:24 AM) Hgb [14.0-18.0 g/dL] 5.1 % (11/05/19 5:45 AM) Hgb A1C [<=5.6 %] 21 ug/dl *LOW* (11/10/19 6:40 AM) Iron [45-160 ug/dl] 4.4 mEq/L (11/18/19 4:42 AM) 4.3 mEq/L (11/17/19 4:07 AM) 4.0 mEq/L (11/16/19 4:29 AM) Potassium Lvl [3.5-5.1 mEq/L] 106 mg/dL *HI* (11/05/19 5:45 AM) LDL (Calculated) [<=99 mg/dL] 24.6 pg *LOW* (11/18/19 4:42 AM) 24.7 pg *LOW* (11/16/19 4:29 AM) 24.4 pg *LOW* (11/14/19 5:24 AM) MCH [27.0-31.0 pg] 31.7 g/dL *LOW* (11/18/19 4:42 AM) 31.5 g/dL *LOW* (11/16/19 4:29 AM) 30.9 g/dL *LOW* (11/14/19 5:24 AM) MCHC [32.0-36.0 g/dL] 77.5 fL *LOW* (11/18/19 4:42 AM) 78.3 fL *LOW* (11/16/19 4:29 AM) 79.0 fL *LOW* (11/14/19 5:24 AM) MCV [80.0-94.0 fL] 8.7 fL (11/18/19 4:42 AM) 9.2 fL (11/16/19 4:29 AM) 8.6 fL (11/14/19 5:24 AM) MPV [7.4-10.4 fL] 134 mEq/L *LOW* (11/18/19 4:42 AM) 134 mEq/L *LOW* (11/17/19 4:07 AM) 138 mEq/L (11/16/19 4:29 AM) Sodium Lvl [135-145 mEq/L] 120 K/CMM *LOW* (11/18/19 4:42 AM) 162 K/CMM (11/16/19 4:29 AM) 175 K/CMM (11/14/19 5:24 AM) Platelet [133-450 K/CMM] 6.5 g/dL (11/13/19 5:00 PM) 8.0 g/dL (11/04/19 9:04 PM) Total Protein [6.4-8.4 g/dL] 0.94 ng/mL (11/07/19 1:50 PM) PSA [0.00-4.00 ng/mL] 3.33 M/CMM *LOW* (11/18/19 4:42 AM) 3.72 M/CMM *LOW* (11/16/19 4:29 AM) 3.45 M/CMM *LOW* (11/14/19 5:24 AM) RBC [4.70-6.10 M/CMM] 20.0 % *HI* (11/18/19 4:42 AM) 19.9 % *HI* (11/16/19 4:29 AM) 19.8 % *HI* (11/14/19 5:24 AM) RDW [11.5-14.5 %] 1.3 % (11/09/19 7:17 PM) Retic Auto [0.5-1.5 %] 93 mm/hr *HI* (11/04/19 9:04 PM) Sed Rate [0-15 mm/hr] Total protein and serum albumin levels a re within reference ranges. Serum capillary protein electrophoresis shows elevated alpha-1 and alpha-2 globulin fractions. No monoclonal proteins are identified. The electrophoretic pattern is consistent with the acute phase of an inflammatory process. Clinical correlation is required. Interpretation performed at [facility]. *NA* (11/07/19 1:50 PM) SPE Interp 0.62 g/dL *HI* (11/07/19 1:50 PM) Alpha 1 Glob [0.18-0.41 g/dL] 1.07 g/dL *HI* (11/07/19 1:50 PM) Alpha 2 Glob [0.45-1.00 g/dL] 44.8 REL % *LOW* (11/07/19 1:50 PM) Albumin % [55.8-66.1 REL %] 3.58 g/dL (11/07/19 1:50 PM) Albumin (SPE) [3.57-5.55 g/dL] 7.8 REL % *HI* (11/07/19 1:50 PM) Alpha 1 % [2.8-4.9 REL %] 13.4 REL % *HI* (11/07/19 1:50 PM) Alpha 2 % [7.0-11.9 REL %] 15.2 REL % *HI* (11/07/19 1:50 PM) Beta % [7.8-13.7 REL %] 1.22 g/dL *HI* (11/07/19 1:50 PM) Beta Glob [0.50-1.15 g/dL] 1.50 g/dL (11/07/19 1:50 PM) Gamma Glob [0.71-1.57 g/dL] 18.8 REL % *HI* (11/07/19 1:50 PM) Gamma % [11.1-18.7 REL %] 8.0 g/dL (11/07/19 1:50 PM) Tot Prot (SPE) [6.4-8.4 g/dL] 0.2 mg/dL (11/13/19 5:00 PM) 0.2 mg/dL (11/04/19 9:04 PM) Bili Total [0.2-1.3 mg/dL] 168 ug/dl *LOW* (11/10/19 6:40 AM) TIBC [228-428 ug/dl] 133 mg/dL (11/05/19 5:45 AM) Trig [<=149 mg/dL] 147 ug/dl (11/10/19 6:40 AM) UIBC [110-370 ug/dl] 12.5 ug/ml *NA* (11/15/19 6:00 PM) 15.5 ug/ml *NA* (11/13/19 5:14 PM) 17.1 ug/ml *NA* (11/11/19 4:08 PM) Vanco Lvl 285 pg/mL (11/10/19 6:40 AM) Vitamin B12 Lvl [254-1320 pg/mL] 5.7 K/CMM (11/18/19 4:42 AM) 5.3 K/CMM (11/16/19 4:29 AM) 4.8 K/CMM (11/14/19 5:24 AM) WBC [3.7-10.4 K/CMM] 27 *NA* (11/05/19 5:45 AM) VLDL 1Result Comment: The eGFR is calculated using [...] tiplied by the estimated BMI. 4Result Comment: Please note reference interval change 5Result Comment: Constant Contact DxI 800 Immunoassay System Values obtained with different assay methods or kits cannot be used interchangeably. Results cannot be interpreted as absolute evidence of the presence or absence of malignant disease. Performed At: [address] [id number] Carmelo Montana MD Ph:[phone] Microbiology Reports TEST: Culture: Urine STATUS: Auth (Verified) BODY SITE: SOURCE: Urine, Suprapubic COLLECTED DATE/TIME: 11/07/19 11:36 PM FINAL REPORT 1000-10,000/cfu/ml Melody tropicalis TEST: Culture: Anaerobic STATUS: Auth (Verified) BODY SITE: SOURCE: Biopsy COLLECTED DATE/TIME: 11/05/19 4:41 PM FINAL REPORT No Anaerobes Isolated After 5 Days TEST: Culture: Aspirate/Body Fluid/Tissue STATUS: Modified/Amended/Cor BODY SITE: SOURCE: Biopsy COLLECTED DATE/TIME: 11/05/19 4:41 PM FINAL REPORT Growth In Subculture Broth Only : Streptococcus mitis STAIN REPORT No Wbc'S Or Organisms Seen ORGANISM:Streptococcus mitis TEST: Culture: Anaerobic STATUS: Auth (Verified) BODY SITE: SOURCE: Biopsy COLLECTED DATE/TIME: 11/05/19 4:37 PM FINAL REPORT No Anaerobes Isolated After 5 Days TEST: Culture: Aspirate/Body Fluid/Tissue STATUS: Auth (Verified) BODY SITE: SOURCE: Biopsy COLLECTED DATE/TIME: 11/05/19 4:37 PM FINAL REPORT Rare Methicillin Resistant Staphylococcus aureus STAIN REPORT No Wbc'S Or Organisms Seen ORGANISM:Methicillin Resistant Staphylococcus aureus TEST: Culture: Wound/Abscess w/Gram Stain STATUS: Auth (Verified) BODY SITE: Right Ankle SOURCE: Wound, Non Surgical COLLECTED DATE/TIME: 11/04/19 5:31 PM FINAL REPORT Many Methicillin Resistant Staphylococcus aureus STAIN REPORT Rare Wbc'S; Rare Gram Positive Cocci In Clusters ORGANISM:Methicillin Resistant Staphylococcus aureus Immunizations Given and Recorded Vaccine Date Status Refusal Reason hepatitis B adult vaccine 02/28/17 Given pneumococcal 13-valent vaccine 08/13/16 Given influenza virus vaccine, inactivated 05/28/15 G iven influenza virus vaccine, inactivated 05/16/12 G iven pneumococcal 23-valent vaccine 05/16/12 Given Procedures Procedure Date Related Diagnosis Body Site Status INCISION AND DEBRIDEMENT RIGHT HIP WOUND 06/03/15 Completed Colonoscopy 2009 Completed Nephrectomy 2005 Completed Amputation1 Completed Colostomy [...] Status Current every day smoker; T ype: Marijuana; Previous treatment: Nicotine replacement; Ready to change: Yes; Conc erns about tobacco use in household: No; Exposure to Tobacco Smoke None; Cig arette Smoking Last 365 Days Yes; Reg Smoking Cessation Counseling No; To bacco use per day: 10; Other Tobacco Frequency na; 1 entered on: 11/04/19 1Smokes a couple of grams per day - marijuana Assessment and Plan Extracted from: Title: Heme-Onc Progress Note Author: Bin Vidales MD [...] - no further inpatient work up is planflori alvarado. Patient is cleared for discharge from [facility]c standoint Extracted from: Title: General Admission H&P * Author: Silvestre Turcios [...]
--- OUTSIDE RECORDS SUMMARY | 2020-03-18 10:19 | XMS REPORT | CCD ---
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 Medications Medication Instructions Start Date End Date Status hydromorphone 0.5 mg, Route: IV, ONCE, Start 10/17/20112011 Completed date: 10/17/11 8:36:00, Stop date: 10/17/11 8:36:00 hydromorphone 0.5 mg, Route: IV, ONCE, Start 10/17/20112011 Completed date: 10/17/11 8:36:00, Stop date: 10/17/11 8:36:00 hydromorphone 0.5 mg, Route: IV, ONCE, Start 10/17/20112011 Completed date: 10/17/11 8:36:00, Stop date: 10/17/11 8:36:00 hydromorphone 0.5 mg, Route: IV, ONCE, Start 10/17/20112011 Completed date: 10/17/11 8:36:00, Stop date: 10/17/11 8:36:00 hydromorphone 0.5 mg, Route: IV, ONCE, Start 10/17/20112011 Completed date: 10/17/11 8:36:00, Stop date: 10/17/11 8:36:00 hydromorphone 0.5 mg, Route: IV, ONCE, Start 10/17/20112011 Completed date: 10/17/11 8:36:00, Stop date: 10/17/11 8:36:00 hydromorphone 0.5 mg, Route: IV, ONCE, Start 10/17/20112011 Completed date: 10/17/11 8:36:00, Stop date: 10/17/11 8:36:00 lidocaine 5 mL, Route: S&SWALLOW, Drug form: 10/16/201110/03 Discontinued SOLN, QID-Before Meals, PRN Mouth Pain, Start date: 10/16/11 5:56:00, Duration: 30 day, Stop date: 11/15/11 5:55:00 Phenergan 12.5 mg, 0.5 mL, Route: IVPB, Q6H, 10/15/201110/03 Discontinued PRN Nausea, Start date: 10/15/11 21:50:00, Duration: 30 day, Stop date: 11/14/11 21:49:00 Lactated Ringers IV 1,000 mL, Rate: 40 ml/hr, Infuse 10/17/2011 10/18/2011 Discontinued 1,000 mL over: 25 hr, Route: IV, Dos ing Weight 74.6 kg, Total Volume: 1,000, Start date: 10/17/11 7:05:00, Duration: 30 day, Stop date: 11/16/11 7:04:00 Bactroban 1 appl, Route: TOP, Daily, Drug 10/18/2011 012 Discontinued form: OINT, Start date: 10/18/11 23:00:00, Duration: 30 day, Stop date: 11/17/11 9:00:00 Dextrose 5% with 1,000 mL, Rate: 150 ml/hr, Infuse 10/15/2011 10/17/2011 Discontinued 0.45% NaCl IV 1,000 over: 7.2 hr, Route: IV, Do sing mL + sodium Weight 68.182 kg, Total Vol ume: bicarbonate 8.4% 75 1,075, Start date: 10/15/11 mEq 10:00:00, Duration: 30 day, Stop date: 11/14/11 9:59:00 hydromorphone 0.5 mg, Route: IV, ONCE, Start 10/17/20112011 Completed date: 10/17/11 8:35:00, Stop date: 10/17/11 8:35:00 Detrol LA 4 mg, 1 cap, Route: PO, Drug form: 10/18/201110/03 Discontinued CAP, Daily, Start date: 10/18/11 9:00:00, Duration: 30 day, Stop date: 11/16/11 9:00:00 Sodium Chloride 0.9% 1,000 mL, Rate: 150 ml/hr, Infuse 201110/15/2011 Discontinued IV 1,000 mL over: 6.7 hr, Route: IV, Do sing Weight 68.182 kg, Total Volume: 1,000, Start date: 10/15/11 3:30:00, Duration: 30 day, Stop date: 11/14/11 3:29:00 Zosyn 2.25 gm, 1 ea, Route: IVPB, [id number], 10/15/2011 Discontinued Start date: 10/15/11 21:00:00, Duration: 30 day, Stop date: 11/14/11 13:00:00 Zofran 4 mg, 1 tab, Route: PO, Drug form: 10/15/201110/03 Discontinued TAB, Q8H, PRN Nausea, Start date: 10/15/11 21:50:00, Duration: 30 day, Stop date: 11/14/11 21:49:00 sterile water 2.2 mL, Route: IV, Drug Form: INJ, 10/23/2011 Discontinued PRN, PRN See Nurse's Notes, Start date: 10/23/11 13:10:00, Duration: 1 day, Stop date: 10/24/11 13:09:00 Habitrol 21 mg, 1 patch, Route: TOP, Drug 10/15/20112011 Discontinued form: ERFILM, Q24H, Start date: 10/15/11 20:00:00, Duration: 30 day, Stop date: 11/13/11 20:00:00 nitroglycerin 0.4 mg 0.4 mg, 1 tab, Route: SL, Drug 10/15/2011 10/23/2011 Discontinued sublingual tablet form: TAB, PRN, PRN Chest P ain, Start date: 10/15/11 13:16:00, Duration: 30 day, Stop date: 11/14/11 13:15:00 Activase 2 mg, 2 mL, Route: IV, Drug form: 10/23/201110/22 Completed INJ, ONCE, Start date: 10/23/11 13:10:00, Stop date: 10/23/11 13:10:00 DOPamine 800 mg in 800 mg, 250 mL, Rate: acls, Route: 10/15/2011 10/23/2011 Discontinued D5W Premix IV 800 mg IV, Total Volume: 250, Star t date: 10/15/11 13:16:00, Duration: 30 day, Stop date: 11/14/11 13:15:00, Replace Every: 24 hr atropine 1 mg, 10 mL, Route: IV, Drug form: 10/15/201110/03 Discontinued INJ, PRN, PRN Asystole, Start date: 10/15/11 13:15:00, Duration: 30 day, Stop date: 11/14/11 13:14:00 epinephrine 1 mg, 10 mL, Route: IV, Drug form: 10/15/201110/03 Discontinued INJ, PRN, PRN Asystole, Start date: 10/15/11 13:15:00, Duration: 30 day, Stop date: 11/14/11 13:14:00 atropine 0.5 mg, 5 mL, Route: IV, Drug form: 10/15/2011 Discontinued INJ, PRN, PRN Bradycardia, Start date: 10/15/11 13:15:00, Duration: 30 day, Stop date: 11/14/11 13:14:00 Zyvox 600 mg, 1 tab, Route: PO, Drug 10/18/2011 10/23/19 12 Discontinued form: TAB, [id number], Start date: 10/18/11 14:00:00, Duration: 30 day, Stop date: 11/17/11 2:00:00 Cordarone 150 mg, 3 mL, Route: IV, PRN, PRN 10/15/201110/22 Discontinued Other -See Comment, Start date: 10/15/11 13:15:00, Duration: 30 day, Stop date: 11/14/11 13:14:00 acetaminophen 500 mg, 1 tab, Route: PO, Drug 10/19/20112011 Discontinued form: TAB, Q4H, PRN Pain/Fever, Start date: 10/19/11 0:30:00, Duration: 30 day, Stop date: 11/18/11 0:29:00 Celexa 40 mg, 2 tab, Route: PO, Drug form: 10/16/2011 Discontinued TAB, QAM, Start date: 10/16/11 9:00:00, Duration: 30 day, Stop date: 11/14/11 9:00:00 Xanax 2 mg, 4 tab, Route: PO, Drug form: 10/15/201110/03 Discontinued TAB, BID, Start date: 10/15/11 17:00:00, Duration: 30 day, Stop date: 11/14/11 9:00:00 Questran Light 4 gm, 1 pkt, Route: PO, Drug form: 10/15/2011 0 10/23/2011 Discontinued PDR/REC, Q6H, Start date: 10/15/11 18:00:00, Duration: 30 day, Stop date: 11/14/11 12:00:00 Zyvox 600 mg, 300 mL, Route: IVPB, Drug 10/17/201110/17 Discontinued form: SOLN, [id number], Start date: 10/17/11 14:00:00, Duration: 30 day, Stop date: 11/16/11 2:00:00 magnesium sulfate 4 gm, 100 mL, Route: IVPB, Drug 10/18/2011 0 10/18/2011 Completed form: INJ, ONCE, Start date: 10/18/11 9:41:00, Stop date: 10/18/11 9:41:00 Protonix 40 mg, 1 tab, Route: PO, Drug form: 10/15/2011 Discontinued ECTAB, Before Dinner, Start date: 10/15/11 16:30:00, Duration: 30 day, Stop date: 11/13/11 16:30:00 Dilaudid 1.5 mg, 0.75 mL, Route: IV, Drug 10/16/20112011 Discontinued form: INJ, Q6H, PRN Pain, Start date: 10/16/11 11:00:00, Duration: 30 day, Stop date: 11/15/11 10:59:00 baclofen 10 mg, 1 tab, Route: PO, Drug form: 10/15/2011 Discontinued TAB, BID, Start date: 10/15/11 17:00:00, Duration: 30 day, Stop date: 11/14/11 9:00:00 Neurontin 300 mg, 1 cap, Route: PO, Drug 10/16/2011 10/23/19 12 Discontinued form: CAP, Daily, Start date: 10/16/11 9:00:00, Duration: 30 day, Stop date: 11/14/11 9:00:00 Norvasc 10 mg, 2 tab, Route: PO, Drug form: 10/18/2011 Discontinued TAB, Daily, Start date: 10/18/11 9:41:00, Stop date: 11/17/11 9:00:00 Dolophine 40 mg, 4 tab, Route: PO, Drug form: 10/15/2011 Discontinued TAB, BID, Start date: 10/15/11 17:00:00, Duration: 30 day, Stop date: 11/14/11 9:00:00 Norvasc 5 mg, 1 tab, Route: PO, Drug form: 10/19/201110/03 Discontinued TAB, Daily, Start date: 10/19/11 16:00:00, Stop date: 11/17/11 16:00:00 acetaminophen-hydroc 1 tab, Route: PO, Drug Form: TAB, 201110/23/2011 Discontinued odone 325 mg-10 mg Q4H, PRN Pain, Start date: 10/15/11 oral tablet 15:44:00, Duration: 30 day, Stop date: 11/14/11 15:43:00 magnesium sulfate 2 gm, 50 mL, Route: IVPB, Drug 10/17/2011 Completed form: INJ, ONCE, Start date: 10/17/11 8:00:00, Stop date: 10/17/11 8:00:00 Sodium Chloride 0.9% 25 mL, Route: IV, Start date: 10/17/2011 10/23/2011 Discontinued IV 10/17/11 7:36:00, Duration: 30 day, Stop date: 11/16/11 7:35:00, PRN Line Flush Robitussin-DM 15 mL, Route: PO, Drug Form: LIQ, 10/19/2011 Deleted Q6H, PRN Cough, Start date: 10/19/11 16:23:00, Duration: 30 day, Stop date: 11/18/11 16:22:00 aluminum 30 mL, Route: PO, Drug Form: SUSP, 10/15/201110/03 Discontinued hydroxide-magnesium Q6H, PRN See Nurse's Notes, Start hydroxide 200 mg-200 date: 10/15/11 15:44:00, Du ration: mg/5 mL oral 30 day, Stop date: 11/14/11 suspension 15:43:00 loperamide 4 mg, 2 cap, Route: PO, Drug form: 10/15/201110/03 Discontinued CAP, PRN, PRN Diarrhea, Start date: 10/15/11 15:44:00, Duration: 30 day, Stop date: 11/14/11 15:43:00 BD Normal Saline 10 mL, Route: IV, Drug Form: INJ, 10/17/2011 10/23/2011 Discontinued Flush PRN, PRN Line Flush, Start date: 10/17/11 7:36:00, Duration: 30 day, Stop date: 11/16/11 7:35:00 Sodium Chloride 1,000 mL, Rate: 40 ml/hr, Infuse 10/17/2011 Discontinued 0.45% IV 1,000 mL over: 25 hr, Route: IV, Dos ing Weight 74.6 kg, Total Volume: 1,000, Start date: 10/17/11 7:36:00, Stop date: 11/16/11 7:35:00 Ativan 0.5 mg, 0.25 mL, Route: IVP, Drug 10/15/201110/22 Discontinued form: INJ, Q4H, PRN Agitation, Start date: 10/15/11 21:45:00, Duration: 30 day, Stop date: 11/14/11 21:44:00 Trandate 5 mg, 1 mL, Route: IV, Drug form: 10/19/201110/22 Discontinued INJ, Q6H, PRN Elevated BP, Start date: 10/19/11 11:49:00, Duration: 30 day, Stop date: 11/18/11 11:48:00 magnesium sulfate 1 gm, 100 mL, Route: IVPB, Drug 10/16/2011 0 10/16/2011 Completed form: INJ, ONCE, Start date: 10/16/11 6:52:00, Stop date: 10/16/11 6:52:00 clonidine 0.1 mg 0.1 mg, 1 tab, Route: PO, Drug 10/19/2011 Discontinued oral tablet form: TAB, Q4H, PRN Elevate d BP, Start date: 10/19/11 11:47:00, Duration: 30 day, Stop date: 11/18/11 11:46:00 Duricef 500 mg, 1 cap, Route: PO, Drug 10/23/2011 10/23/19 12 Discontinued form: CAP, Q12H, Start date: 10/23/11 14:00:00, Duration: 30 day, Stop date: 11/22/11 9:00:00 Cipro 500 mg, 1 tab, Route: PO, Drug 10/23/2011 10/23/19 12 Discontinued form: TAB, Q12H, Start date: 10/23/11 13:33:00, Duration: 30 day, Stop date: 11/22/11 9:00:00 Sodium Chloride 0.9% 1,000 mL, Rate: 1,000 ml/hr, Infuse 10/0210/15/2011 Completed (Bolus) IV 1000 mL over: 1 hr, Route: IV, kg, Total Volume: 1,000, Bolus Dose, Priority: STAT, Start date: 10/14/11 23:41:00, Duration: 1 doses or times, Stop date: 10/15/11 0:40:00 Norvasc 5 mg, 1 tab, Route: PO, Drug form: 10/19/201110/02 Completed TAB, ONCE, Start date: 10/19/11 12:00:00, Stop date: 10/19/11 12:00:00 Vital Signs Most recent to oldest [Reference Range]: 1 2 3 Height 182.88 cm (10/14/2011 19:40:00) Current Weight 63.778 kg (10/22/2011 05:00:00) 70.017 kg (10/21/2011 05:00:00) 71.682 kg (10/19/2011 05:00:00) Temperature Oral [96.4-99.1 DegF] 97.5 DegF (10/23/2011 13:03:00) 97.7 DegF (10/23/2011 07:30:00) 98.0 DegF (10/23/2011 00:00:00) Systolic Blood Pressure [90-140 mmHg] 138 mmHg (10/23/2011 13:03:00) 116 mmHg (10/23/2011 07:30:00) 103 mmHg (10/23/2011 00:00:00) Diastolic Blood Pressure [60-90 mmHg] 96 mmHg *HI* (10/23/2011 13:03:00) 77 mmHg (10/23/2011 07:30:00) 48 mmHg *LOW* (10/23/2011 00:00:00) Respiratory Rate [14-20 BRMIN] 19 BRMIN (10/23/2011 13:03:00) 20 BRMIN (10/23/2011 07:30:00) 20 BRMIN (10/23/2011 00:00:00) Peripheral Pulse Rate [60-100 bpm] 83 bpm (10/23/2011 13:03:00) 79 bpm (10/23/2011 07:30:00) 68 bpm (10/23/2011 00:00:00) Weight 74.600 kg (10/16/2011 04:45:00) 68.182 kg (10/14/2011 19:40:00) Results URINALYSIS Most recent to oldest [Reference Range]: 1 2 3 UA Turbidity [Clear] Clear (10/17/2011 03:00:00) Slight *ABN* (10/16/2011 02:10:00) Slight *ABN* (10/15/2011 17:30:00) UA Color [Yellow] Colorless *NA* (10/17/2011 03:00:00) Yellow *NA* (10/16/2011 02:10:00) Yellow *NA* (10/15/2011 17:30:00) UA pH [5.0-8.0] 5.0 (10/17/2011 03:00:00) 6.0 (10/16/2011 02:10:00) 6.5 (10/15/2011 17:30:00) UA Spec Grav [<=1.030] 1.007 (10/17/2011 03:00:00) 1.007 (10/16/2011 02:10:00) 1.014 (10/15/2011 17:30:00) UA Glucose [Negative mg/dL] Negative mg/dL *NA* (10/17/2011 03:00:00) Negative mg/dL *NA* (10/16/2011 02:10:00) Negative mg/dL *NA* (10/15/2011 17:30:00) UA Blood [Negative] Negative (10/17/2011 03:00:00) Large *ABN* (10/16/2011 02:10:00) Moderate *ABN* (10/15/2011 17:30:00) UA Ketones [Negative mg/dL] Negative mg/dL *NA* (10/17/2011 03:00:00) Negative mg/dL *NA* (10/16/2011 02:10:00) Negative mg/dL *NA* (10/15/2011 17:30:00) UA Protein [Negative mg/dL] Negative mg/dL (10/17/2011 03:00:00) 50 mg/dL *ABN* (10/16/2011 02:10:00) >=300 mg/dL *ABN* (10/15/2011 17:30:00) UA Urobilinogen [0.1-1.0 mg/dL] <=1.0 mg/dL *NA* (10/17/2011 03:00:00) <=1.0 mg/dL *NA* (10/16/2011 02:10:00) <=1.0 mg/dL *NA* (10/15/2011 17:30:00) UA Bili [Negative] Negative *NA* (10/17/2011 03:00:00) Negative *NA* (10/16/2011 02:10:00) Negative *NA* (10/15/2011 17:30:00) UA Leuk Est [Negative] Moderate *ABN* (10/17/2011 03:00:00) Large *ABN* (10/16/2011 02:10:00) Large *ABN* (10/15/2011 17:30:00) UA Nitrite [Negative] Negative (10/17/2011 03:00:00) Negative (10/16/2011 02:10:00) Negative (10/15/2011 17:30:00) UA WBC [0-5 /HPF] 3 /HPF (10/17/2011 03:00:00) 51 /HPF *HI* (10/16/2011 02:10:00) 44 /HPF *HI* (10/15/2011 17:30:00) UA RBC [0-2 /HPF] 1 /HPF (10/17/2011 03:00:00) >182 /HPF *HI* (10/16/2011 02:10:00) 170 /HPF *HI* (10/15/2011 17:30:00) UA Bacteria [None Seen /HPF] Occasional /HPF *NA* (10/16/2011 02:10:00) Occasional /HPF *NA* (10/15/2011 17:30:00) UA Sq Epi [Few /LPF] Moderate /LPF *ABN* (10/16/2011 02:10:00) UA Hyal Cast [0-2 /LPF] 3 /LPF *HI* (10/16/2011 02:10:00) 2 /LPF (10/15/2011 17:30:00) UA Mucus [None Seen /LPF] Few /LPF *NA* (10/16/2011 02:10:00) Few /LPF *NA* (10/15/2011 17:30:00) UA [place]ird Yeast [None Seen /HPF] Moderate /HPF *ABN* (10/15/2011 17:30:00) UA Hyph Yeast [None Seen] Occasional *ABN* (10/15/2011 17:30:00) Micro? Performed *NA* (10/17/2011 03:00:00) Performed *NA* (10/16/2011 02:10:00) Performed *NA* (10/15/2011 17:30:00) CHEMISTRY Most recent to oldest [Reference Range]: 1 2 3 Sodium Lvl [135-145 mEq/L] 140 mEq/L (10/21/2011 05:33:00) 139 mEq/L (10/19/2011 03:55:00) 142 mEq/L (10/18/2011 03:00:00) Potassium Lvl [3.5-5.1 mEq/L] 4.7 mEq/L (10/21/2011 05:33:00) 5.0 mEq/L (10/19/2011 03:55:00) 4.7 mEq/L (10/18/2011 03:00:00) Chloride Lvl [95-109 mEq/L] 107 mEq/L (10/21/2011 05:33:00) 104 mEq/L (10/19/2011 03:55:00) 108 mEq/L (10/18/2011 03:00:00) CO2 [24-32 mEq/L] 26 mEq/L (10/21/2011 05:33:00) 26 mEq/L (10/19/2011 03:55:00) 27 mEq/L (10/18/2011 03:00:00) AGAP [10.0-20.0 mEq/L] 11.7 mEq/L (10/21/2011 05:33:00) 14.0 mEq/L (10/19/2011 03:55:00) 11.7 mEq/L (10/18/2011 03:00:00) Creatinine Lvl [0.5-1.4 mg/dL] 1.0 mg/dL (10/21/2011 05:33:00) 1.1 mg/dL (10/19/2011 03:55:00) 1.6 mg/dL *HI* (10/18/2011 03:00:00) BUN [7-22 mg/dL] 26 mg/dL *HI* (10/21/2011 05:33:00) 29 mg/dL *HI* (10/19/2011 03:55:00) 34 mg/dL *HI* (10/18/2011 03:00:00) B/C Ratio [6-25] 14 (10/15/2011 05:13:00) 16 (10/14/2011 22:02:00) Glucose Lvl 101 mg/dL 1 *NA* (10/21/2011 05:33:00) 88 mg/dL 2 *NA* (10/19/2011 03:55:00) 95 mg/dL 3 *NA* (10/18/2011 03:00:00) Total Protein [6.4-8.4 g/dL] 8.3 g/dL (10/15/2011 05:13:00) 8.0 g/dL (10/14/2011 22:02:00) Albumin Lvl [3.5-5.0 g/dL] 3.3 g/dL *LOW* (10/15/2011 05:13:00) 3.4 g/dL *LOW* (10/14/2011 22:02:00) Globulin [2.0-4.0 g/dL] 5.0 g/dL *HI* (10/15/2011 05:13:00) 4.6 g/dL *HI* (10/14/2011 22:02:00) A/G Ratio [0.7-1.6] 0.7 (10/15/2011 05:13:00) 0.7 (10/14/2011 22:02:00) Calcium Lvl [8.5-10.5 mg/dL] 9.3 mg/dL (10/21/2011 05:33:00) 9.3 mg/dL (10/19/2011 03:55:00) 8.9 mg/dL (10/18/2011 03:00:00) Phosphorus [2.5-4.5 mg/dL] 6.5 mg/dL *HI* (10/16/2011 03:00:00) Magnesium Lvl [1.8-2.4 mg/dL] 1.4 mg/dL *LOW* (10/18/2011 03:00:00) 1.7 mg/dL *LOW* (10/17/2011 02:23:00) 1.6 mg/dL *LOW* (10/16/2011 03:00:00) ALT [0-65 U/L] 62 U/L (10/15/2011 05:13:00) 62 U/L (10/14/2011 22:02:00) AST [0-37 U/L] 40 U/L *HI* (10/15/2011 05:13:00) 32 U/L (10/14/2011 22:02:00) Alk Phos [39-136 U/L] 86 U/L (10/15/2011 05:13:00) 80 U/L (10/14/2011 22:02:00) Bili Total [0.2-1.3 mg/dL] 0.4 mg/dL (10/15/2011 05:13:00) 0.3 mg/dL (10/14/2011 22:02:00) Total CK [12-191 U/L] 107 U/L (10/16/2011 03:00:00) 151 U/L (10/14/2011 22:02:00) CK MB [0.5-3.6 ng/mL] 3.1 ng/mL (10/14/2011 22:02:00) CK MB Index [0.0-2.5] 2.1 (10/14/2011 22:02:00) Troponin-I [0.00-0.40 ng/mL] <0.02 ng/mL (10/14/2011 22:02:00) U Amph Scr [Negative] Negative *NA* (10/14/2011 22:00:00) U Chelsie Scr [Negative] Negative *NA* (10/14/2011 22:00:00) U Benzodia Scr [Negative] Positive 4 *ABN* (10/14/2011 22:00:00) U Cocaine Scr [Negative] Positive *ABN* (10/14/2011 22:00:00) U Opiate Scr [Negative] Positive *ABN* (10/14/2011 22:00:00) U Phencyc Scr [Negative] Negative *NA* (10/14/2011 22:00:00) U Cannab Scr [Negative] Positive *ABN* (10/14/2011 22:00:00) UDS Note See Note 5 (10/14/2011 22:00:00) Vanco Lvl TLD unknown *NA* (10/15/2011 05:13:00) Vanco Lvl 25.9 ug/ml 6 *NA* (10/15/2011 05:13:00) Etoh (%) <.003 % 7 *NA* (10/14/2011 22:40:00) Ethanol Lvl <3 mg/dL 8 *NA* (10/14/2011 22:40:00) U Creatinine 42.8 mg/dL 9 *NA* (10/15/2011 17:30:00) U Protein 1160.3 mg/dL 10 *NA* (10/15/2011 17:30:00) U Prot/Creat 27.1 *NA* (10/15/2011 17:30:00) U Sodium 70 mEq/L 11 *NA* (10/15/2011 17:30:00) U Eos [None Seen] None Seen (10/15/2011 17:30:00) pH Art [7.35-7.45] 7.30 *LOW* (10/15/2011 09:36:00) pCO2 Art [35-45 mmHg] 33 mmHg *LOW* (10/15/2011 09:36:00) pO2 Art [80-100 mmHg] 168 mmHg *HI* (10/15/2011 09:36:00) HCO3 Art [22-26 mMol/L] 16 mMol/L *LOW* (10/15/2011 09:36:00) BE Art [-2-2 mMol/L] -9 mMol/L *LOW* (10/15/2011 09:36:00) O2 Sat Art [95.0-100.0 %] 99.5 % (10/15/2011 09:36:00) Site Art Right Ra (10/15/2011 09:36:00) Temp Art 37.0 DegC *NA* (10/15/2011 09:36:00) Allens Art Positive (10/15/2011 09:36:00) Mode Art Rm Air (10/15/2011 09:36:00) 1Interpretive Data: Reference Ranges : 0 - 7 days : 41 - 90 mg/dL7 days - 150 yrs : 70 - 99 mg/dL (fasting), based on the clinical recommendations of the [place] [employer]. 2Interpretive Data: Reference Ranges : 0 - 7 days : 41 - 90 mg/dL7 days - 150 yrs : 70 - 99 mg/dL (fasting), based on the clinical recommendations of the [place] [employer]. 3Interpretive Data: Reference Ranges : 0 - 7 days : 41 - 90 mg/dL7 days - 150 yrs : 70 - 99 mg/dL (fasting), based on the clinical recommendations of the [place] [employer]. 4Result Comment: rechecked 10/14/2011 23:24 gr 5Interpretive Data: Drugs reported as positive have not [...] 50 ng/mLMethadone 300 ng/mLUrine alcohol 20 mg/dL 6Interpretive Data: Therapeutic Range: Trough: 10 - 20 ug/mL Peak: 20 - 40 ug/mL Potential Toxicity: >80 ug/mL 7Interpretive Data: Negative Range: <0.003%Toxic Range: >0.25% 8Interpretive Data: Negative Range: <3 mg/dLToxic Range: >250 mg/dL 9Interpretive Data: No established reference ranges. 10Interpretive Data: No established reference ranges. 11Interpretive Data: No established reference ranges. HEMATOLOGY Most recent to oldest [Reference Range]: 1 2 3 WBC [3.7-10.4 K/CMM] 4.7 K/CMM (10/17/2011 02:23:00) 6.3 K/CMM (10/16/2011 03:00:00) 6.6 K/CMM (10/15/2011 05:13:00) RBC [4.70-6.10 M/CMM] 3.48 M/CMM *LOW* (10/17/2011 02:23:00) 3.79 M/CMM *LOW* (10/16/2011 03:00:00) 4.45 M/CMM *LOW* (10/15/2011 05:13:00) Hgb [14.0-18.0 g/dL] 11.2 g/dL *LOW* (10/17/2011 02:23:00) 11.7 g/dL *LOW* (10/16/2011 03:00:00) 14.2 g/dL (10/15/2011 05:13:00) Hct [42.0-54.0 %] 32.4 % *LOW* (10/17/2011 02:23:00) 34.7 % *LOW* (10/16/2011 03:00:00) 42.0 % (10/15/2011 05:13:00) MCV [80.0-94.0 fL] 93.0 fL (10/17/2011 02:23:00) 91.6 fL (10/16/2011 03:00:00) 94.3 fL *HI* (10/15/2011 05:13:00) MCH [27.0-31.0 pg] 32.1 pg *HI* (10/17/2011 02:23:00) 30.9 pg (10/16/2011 03:00:00) 32.0 pg *HI* (10/15/2011 05:13:00) MCHC [32.0-36.0 g/dL] 34.5 g/dL (10/17/2011 02:23:00) 33.7 g/dL (10/16/2011 03:00:00) 33.9 g/dL (10/15/2011 05:13:00) RDW [11.5-14.5 %] 16.1 % *HI* (10/17/2011 02:23:00) 15.5 % *HI* (10/16/2011 03:00:00) 15.9 % *HI* (10/15/2011 05:13:00) Platelet [133-450 K/CMM] 201 K/CMM (10/17/2011 02:23:00) 192 K/CMM 12 (10/16/2011 03:00:00) 134 K/CMM (10/15/2011 05:13:00) MPV [7.4-10.4 fL] 8.5 fL (10/17/2011 02:23:00) 8.5 fL (10/16/2011 03:00:00) 9.0 fL (10/15/2011 05:13:00) Segs [45.0-75.0 %] 42.8 % *LOW* (10/17/2011 02:23:00) 62.4 % (10/16/2011 03:00:00) 57.0 % (10/15/2011 05:13:00) Lymphocytes [20.0-40.0 %] 41.1 % *HI* (10/17/2011 02:23:00) 23.6 % (10/16/2011 03:00:00) 29.2 % (10/15/2011 05:13:00) Monocytes [2.0-12.0 %] 10.2 % (10/17/2011 02:23:00) 11.2 % (10/16/2011 03:00:00) 10.8 % (10/15/2011 05:13:00) Eosinophils [0.0-4.0 %] 5.2 % *HI* (10/17/2011 02:23:00) 2.4 % (10/16/2011 03:00:00) 2.7 % (10/15/2011 05:13:00) Basophils [0.0-1.0 %] 0.7 % (10/17/2011 02:23:00) 0.4 % (10/16/2011 03:00:00) 0.3 % (10/15/2011 05:13:00) Segs-Bands # [1.5-8.1 K/CMM] 2.0 K/CMM (10/17/2011 02:23:00) 3.9 K/CMM (10/16/2011 03:00:00) 3.8 K/CMM (10/15/2011 05:13:00) Lymphocytes # [1.0-5.5 K/CMM] 1.9 K/CMM (10/17/2011 02:23:00) 1.5 K/CMM (10/16/2011 03:00:00) 1.9 K/CMM (10/15/2011 05:13:00) Monocytes # [0.0-0.8 K/CMM] 0.5 K/CMM (10/17/2011 02:23:00) 0.7 K/CMM (10/16/2011 03:00:00) 0.7 K/CMM (10/15/2011 05:13:00) Eosinophils # [0.0-0.5 K/CMM] 0.2 K/CMM (10/17/2011 02:23:00) 0.2 K/CMM (10/16/2011 03:00:00) 0.2 K/CMM (10/15/2011 05:13:00) Basophils # [0.0-0.2 K/CMM] 0.0 K/CMM (10/17/2011 02:23:00) 0.0 K/CMM (10/16/2011 03:00:00) 0.0 K/CMM (10/14/2011 22:02:00) RBC Morph Normal (10/17/2011 02:23:00) Normal (10/15/2011 05:13:00) Macrocyte [None Seen] 1+ *ABN* (10/15/2011 05:13:00) Plt Morph Normal (10/15/2011 05:13:00) Large Plt [None Seen] Slight *ABN* (10/17/2011 02:23:00) PT [12.0-14.7 seconds] 14.4 seconds (10/16/2011 03:00:00) INR [0.85-1.17] 1.12 13 (10/16/2011 03:00:00) 12Result Comment: revciewed 10/16/2011 3:30 gr 13Interpretive Data: RECOMMENDED RANGES FOR PROTIME INR: 2.0-3.0 for most medical and surgical thromboembolic states. 2.5-3.5 for artificial heart valves and recurrent embolism.INR SHOULD BE USED ONLY FOR PATIENTS ON STABLE ANTICOAGULANT THERAPY. Microbiology Reports PROCEDURE:Culture: Urine STATUS: Auth (Verified) BODY SITE: COLLECTED DATE/TIME: 10/16/2011 22:00:00 SOURCE: Urine, [place] FREE TEXT SOURCE: FINAL REPORTS Final Report No Growth PRELIMINARY REPORTS Preliminary Report No Growth; Holding PROCEDURE:Culture: Urine STATUS: Auth (Verified) BODY SITE: COLLECTED DATE/TIME: 10/16/2011 02:10:00 SOURCE: Urine, [place] FREE TEXT SOURCE: FINAL REPORTS Final Report No Growth PRELIMINARY REPORTS Preliminary Report No Growth; Holding
--- OUTSIDE RECORDS SUMMARY | 2020-03-18 10:19 | XMS REPORT | CCD ---
Author Author [facility] Address Unknown Phone Unavailable Care Team Providers Care Cigar Making Supervisor Name Role Phone EdisontonyaEsteban CP Unavailable Nila Schmid CP Unavailable ChartServer, Login CP Unavailable SYSTEM, SYSTEM CP Unavailable Jeff Casarez CP [phone] Christopher Clemente Jr RP Allergies, Adverse Reactions, Alerts Substance Reaction Status NKDA ?? Active Problem List Condition Effective Dates Status Acinetobacter1 ?? Active 1Problem added by Discern Expert. Medications Medication Instructions Start Date End Date Status Ditropan XL 15 mg BID, Substitution Allowed 04/15/2011 ?? Ordered oral tablet, extended release Vital Signs Most recent to oldest [Reference Range]: 1 Height 182.88 cm (04/15/2011 10:38:00) ?? Systolic Blood Pressure [90-140 mmHg] 143 mmHg *HI* (04/15/2011 11:32:00) ?? Diastolic Blood Pressure [60-90 mmHg] 103 mmHg *HI* (04/15/2011 11:32:00) ?? Peripheral Pulse Rate [60-100 bpm] 68 bpm (04/15/2011 11:32:00) ?? Weight 59.091 kg (04/15/2011 10:38:00) ??
--- OUTSIDE RECORDS SUMMARY | 2020-03-18 10:19 | XMS REPORT | CCD ---
Author Author MAXIMO Muse [facility] Address Unknown Phone Unavailable Care Team Providers Care Applications Intern Name Role Phone Guido Samuels CP Allergies, Adverse Reactions, Alerts Substance Reaction Status NKDA Active NKFA Active Problem List Condition Effective Dates Status Acinetobacter1, 2 09/03/2006 Active Cellulitis Active ESBL Escherichia coli3, 4 11/06/2011 Active Pain Active Paraplegia Active Pneumonia Active UTI - Urinary tract infection Active Vomiting Active --MDRO Acinetobacter collected from urine 2Problem added by Discern Expert. 3MDRO, URINE, 11/06/2011 4Problem added by Discern Expert. Medications Medication Instructions Start Date End Date Status Saline Flush 0.9% 10 ml, Route: IVP, Drug Form: INJ, 01/01/2012 01/02/2012 Discontinued PRN, PRN Line Flush, Start date: 01/01/12 12:34:00, Duration: 30 day, Stop date: 01/31/12 12:33:00 Sodium Chloride 0.9% 25 mL, Route: IV, Start date: 01/02/2012 01/02/2012 Discontinued IV 01/02/12 7:47:00, Duration: 30 day, Stop date: 02/01/12 7:46:00, PRN Line Flush acetaminophen-hydroc 1 tab, Route: PO, Drug Form: TAB, 201101/01/2012 Completed odone 325 mg-5 mg ONCE, STAT, Start date: 02/08 oral tablet 12:37:00, Stop date: 12:37:00 Dilaudid 0.5 mg, 0.25 mL, Route: IV, Drug 01/02/20122011 Discontinued form: INJ, Q4H, PRN Pain, Start date: 01/02/12 23:24:00, Duration: 30 day, Stop date: 02/01/12 23:23:00 Protonix 40 mg, 1 tab, Route: PO, Drug form: 01/03/201210/2011 Discontinued ECTAB, Before Dinner, Start date: 01/03/12 16:30:00, Duration: 30 day, Stop date: 02/01/12 16:30:00 naloxone 0.04 mg, 0.1 mL, Route: IVP, Drug 01/01/201201/01 Discontinued form: INJ, Q2MIN, PRN Narcotic Reversal, Start date: 01/01/12 21:10:00, Duration: 30 day, Stop date: 01/31/12 21:09:00 nalbuphine 2 mg, Route: IVP, Q2H, PRN Itching, 01/01/2012 Deleted Start date: 01/01/12 21:10:00, Duration: 5 doses or times, Stop date: Limited # of times levofloxacin 500 mg, 100 mL, Route: IVPB, Drug 01/03/201209/2011 Discontinued form: INJ, Q24H, for CrCl >49 mL/min, Start date: 01/03/12 20:00:00, Duration: 30 day, Stop date: 02/01/12 20:00:00 Zofran 4 mg, 2 mL, Route: IV, Drug form: 01/04/201201/04 Discontinued INJ, Q8H, PRN Nausea & Vomiting, Start date: 01/04/12 3:32:00, Duration: 30 day, Stop date: 02/03/12 3:31:00 levofloxacin 500 mg, 100 mL, Route: IVPB, Drug 01/01/201212/04 Completed form: INJ, ONCE, Priority: STAT, Start date: 01/01/12 18:34:00, Stop date: 01/01/12 18:34:00 Rocephin 1 gm, Route: IVPB, Q24H, Start 01/03/2012 01/04/20 Discontinued date: 01/03/12 20:00:00, Duration: 30 day, Stop date: 02/01/12 20:00:00 Zithromax 500 mg, Route: IVPB, Q24H, Start 01/03/20122011 Discontinued date: 01/03/12 21:00:00, Duration: 30 day, Stop date: 02/01/12 21:00:00 Tylenol 650 mg, 2 tab, Route: PO, Drug 01/04/2012 01/05/20 Discontinued form: TAB, Q4H, PRN Fever, Start date: 01/04/12 3:31:00, Duration: 30 day, Stop date: 02/03/12 3:30:00 Protonix 40 mg, 1 tab, Route: PO, Drug form: 01/02/2012 Discontinued ECTAB, Before Dinner, Start date: 01/02/12 16:30:00, Duration: 30 day, Stop date: 01/31/12 16:30:00 levofloxacin 500 mg, 100 mL, Route: IVPB, Drug 01/02/201212/04 Discontinued form: INJ, [id number], for CrCl >49 mL/min, Start date: 01/02/12 20:00:00, Duration: 30 day, Stop date: 01/31/12 20:00:00 azithromycin 500 mg, Route: IVPB, [id number], Start 01/01/2012 Discontinued date: 01/01/12 21:00:00, Duration: 30 day, Stop date: 01/30/12 21:00:00 ceftriaxone 1 gm, Route: IVPB, [id number], Start 01/01/201201/01 Discontinued date: 01/01/12 21:00:00, Duration: 30 day, Stop date: 01/30/12 21:00:00 BD Normal Saline 10 ml, Route: IVP, Drug Form: INJ, 01/02/2012 01/05/2012 Discontinued Flush PRN, PRN Line Flush, Start date: 01/02/12 23:14:00, Duration: 30 day, Stop date: 02/01/12 23:13:00 naloxone 0.04 mg, 0.1 mL, Route: IVP, Drug 01/02/201201/03 Discontinued form: INJ, Q2MIN, PRN Narcotic Reversal, Start date: 01/02/12 23:14:00, Duration: 30 day, Stop date: 02/01/12 23:13:00 Vibramycin 100 mg, 1 cap, Route: PO, Drug 01/04/2012 01/05/20 12 Discontinued form: CAP, Q12H, Start date: 01/04/12 9:00:00, Duration: 30 day, Stop date: 02/02/12 21:00:00 Floranex 1 tab, Route: PO, Drug Form: TAB, 01/03/201201/04 Discontinued BID, Start date: 01/03/12 9:00:00, Duration: 30 day, Stop date: 02/01/12 17:00:00 Questran Light 4 gm, 1 pkt, Route: PO, Drug form: 01/03/2012 0 01/05/2012 Discontinued PDR/REC, BID, Start date: 01/03/12 9:00:00, Duration: 30 day, Stop date: 02/01/12 17:00:00 Benadryl 12.5 mg, 0.25 mL, Route: IV, Drug 01/02/201201/04 Discontinued form: INJ, Q6H, PRN Itching, Start date: 01/02/12 23:13:00, Duration: 30 day, Stop date: 02/01/12 23:12:00 Xanax 1 mg, 1 tab, Route: PO, Drug form: 01/04/2012 060 10/2011 Discontinued TAB, Q12H, PRN Agitation, Start date: 01/04/12 3:30:00, Duration: 30 day, Stop date: 02/03/12 3:29:00 albuterol 2.49 mg, 3 mL, Route: NEB, Drug 01/04/2012 012 Discontinued form: SOLN, RQ8H, Start date: 01/04/12 7:00:00, Duration: 30 day, Stop date: 02/02/12 23:00:00 Levaquin 500 mg, 2 tab, Route: PO, Drug 01/04/2012 01/05/20 12 Discontinued form: TAB, Daily, Start date: 01/04/12 9:00:00, Duration: 30 day, Stop date: 02/02/12 9:00:00 tramadol 50 mg oral 50 mg, 1 tab, Route: PO, Drug form: 01/0301/05/2012 Discontinued tablet TAB, Q8H, PRN Pain, Start d ate: 01/04/12 3:28:00, Duration: 30 day, Stop date: 02/03/12 3:27:00 Xanax 2 mg, 2 tab, Route: PO, Drug form: 01/02/2012 06/0 09/2011 Discontinued TAB, BID, PRN as needed for anxiety, Start date: 01/02/12 23:10:00, Duration: 30 day, Stop date: 02/01/12 23:09:00 acetaminophen-hydroc 1 tab, Route: PO, Drug Form: TAB, 201101/05/2012 Discontinued odone 325 mg-10 mg Q6H, PRN Pain, Start date: 01/02/12 oral tablet 23:09:00, Duration: 30 day, Stop date: 02/01/12 23:08:00 Levaquin 500 mg oral 500 mg, 1 tab, PO, Q24H, 10 tab, 01/03/2012 01/13/2012 Ordered tablet Substitution Allowed lactobacillus Route: PO, Drug Form: TAB, BID, 01/02/201201/01 Discontinued acidophilus and Start date: 01/02/12 9:00:0 0, [place] Duration: 30 day, Stop date : 01/31/12 17:00:00 Prevacid 30 mg, Route: PO, Drug form: [facility], 01/02/201212/31 Deleted Daily, Start date: 01/02/12 9:00:00, Duration: 30 day, Stop date: 01/31/12 9:00:00 cholestyramine 4 gm, 1 pkt, Route: PO, Drug form: 01/02/2012 0 01/02/2012 Discontinued PDR/REC, BID, Start date: 01/02/12 9:00:00, Duration: 30 day, Stop date: 01/31/12 17:00:00 Xanax 2 mg oral 2 mg, 2 tab, Route: PO, Drug form: 01/01/2012 01/02/2012 Discontinued tablet TAB, BID, PRN as needed for anxiety, Start date: 01/01/12 22:37:00, Duration: 30 day, Stop date: 01/31/12 22:36:00 Benadryl 12.5 mg, 0.25 mL, Route: IV, Drug 01/01/201201/01 Discontinued form: INJ, Q6H, PRN Itching, Start date: 01/01/12 21:18:00, Duration: 30 day, Stop date: 01/31/12 21:17:00 acetaminophen-hydroc 1 tab, Route: PO, Drug Form: TAB, 201101/02/2012 Discontinued odone 325 mg-10 mg Q6H, PRN Pain, Start date: 01/01/12 oral tablet 22:37:00, Duration: 30 day, Stop date: 01/31/12 22:36:00 Dilaudid 0.5 mg, 0.25 mL, Route: IV, Drug 01/01/20122011 Discontinued form: INJ, Q4H, PRN Pain, Start date: 01/01/12 22:55:00, Stop date: 01/31/12 22:54:00 Vital Signs Most recent to oldest [Reference Range]: 1 2 3 Height 182.88 cm (01/01/2012 12:11:00) Temperature Oral [96.4-99.1 DegF] 97.4 DegF (01/05/2012 08:00:00) 97.4 DegF (01/05/2012 00:29:00) 98.3 DegF (01/04/2012 20:00:00) Systolic Blood Pressure [90-140 mmHg] 122 mmHg (01/05/2012 08:00:00) 130 mmHg (01/05/2012 00:29:00) 123 mmHg (01/04/2012 20:00:00) Diastolic Blood Pressure [60-90 mmHg] 80 mmHg (01/05/2012 08:00:00) 90 mmHg (01/05/2012 00:29:00) 81 mmHg (01/04/2012 20:00:00) Respiratory Rate [14-20 BRMIN] 16 BRMIN (01/05/2012 08:00:00) 16 BRMIN (01/05/2012 00:29:00) 20 BRMIN (01/04/2012 20:00:00) Peripheral Pulse Rate [60-100 bpm] 72 bpm (01/05/2012 08:00:00) 73 bpm (01/05/2012 00:29:00) 87 bpm (01/04/2012 20:00:00) Weight 63.636 kg (01/01/2012 12:11:00) Results CHEMISTRY Most recent to oldest [Reference Range]: 1 Sodium Lvl [135-145 mEq/L] 142 mEq/L (01/01/2012 14:20:00) Potassium Lvl [3.5-5.1 mEq/L] 4.1 mEq/L (01/01/2012 14:20:00) Chloride Lvl [95-109 mEq/L] 109 mEq/L (01/01/2012 14:20:00) CO2 [24-32 mEq/L] 24 mEq/L (01/01/2012 14:20:00) AGAP [10.0-20.0 mEq/L] 13.1 mEq/L (01/01/2012 14:20:00) Creatinine Lvl [0.5-1.4 mg/dL] 0.8 mg/dL (01/01/2012 14:20:00) BUN [7-22 mg/dL] 8 mg/dL (01/01/2012 14:20:00) Glucose Lvl [70-99 mg/dL] 87 mg/dL 1 (01/01/2012 14:20:00) Calcium Lvl [8.5-10.5 mg/dL] 8.6 mg/dL (01/01/2012 14:20:00) 1Interpretive Data: Adult reference range values reflect the clinical guidelinesof the [place] [employer]. HEMATOLOGY Most recent to oldest [Reference Range]: 1 WBC [3.7-10.4 K/CMM] 8.2 K/CMM (01/01/2012 15:15:00) RBC [4.70-6.10 M/CMM] 4.54 M/CMM *LOW* (01/01/2012 15:15:00) Hgb [14.0-18.0 g/dL] 14.2 g/dL (01/01/2012 15:15:00) Hct [42.0-54.0 %] 41.6 % *LOW* (01/01/2012 15:15:00) MCV [80.0-94.0 fL] 91.7 fL (01/01/2012 15:15:00) MCH [27.0-31.0 pg] 31.3 pg *HI* (01/01/2012 15:15:00) MCHC [32.0-36.0 g/dL] 34.1 g/dL (01/01/2012 15:15:00) RDW [11.5-14.5 %] 14.5 % (01/01/2012 15:15:00) Platelet [133-450 K/CMM] 256 K/CMM (01/01/2012 15:15:00) MPV [7.4-10.4 fL] 8.0 fL (01/01/2012 15:15:00) Segs [45.0-75.0 %] 65.9 % (01/01/2012 15:15:00) Lymphocytes [20.0-40.0 %] 23.9 % (01/01/2012 15:15:00) Monocytes [2.0-12.0 %] 10.0 % (01/01/2012 15:15:00) Eosinophils [0.0-4.0 %] 0.1 % (01/01/2012 15:15:00) Basophils [0.0-1.0 %] 0.1 % (01/01/2012 15:15:00) Segs-Bands # [1.5-8.1 K/CMM] 5.4 K/CMM (01/01/2012 15:15:00) Lymphocytes # [1.0-5.5 K/CMM] 2.0 K/CMM (01/01/2012 15:15:00) Monocytes # [0.0-0.8 K/CMM] 0.8 K/CMM (01/01/2012 15:15:00) Eosinophils # [0.0-0.5 K/CMM] 0.0 K/CMM (01/01/2012 15:15:00) Basophils # [0.0-0.2 K/CMM] 0.0 K/CMM (01/01/2012 15:15:00) PT [12.0-14.7 seconds] 13.0 seconds (01/01/2012 15:15:00) INR [0.85-1.17] 0.98 2 (01/01/2012 15:15:00) PTT [22.9-35.8 seconds] 27.9 seconds 3 (01/01/2012 15:15:00) 2Interpretive Data: RECOMMENDED RANGES FOR PROTIME INR: 2.0-3.0 for most medical and surgical thromboembolic states. 2.5-3.5 for artificial heart valves and recurrent embolism.INR SHOULD BE USED ONLY FOR PATIENTS ON STABLE ANTICOAGULANT THERAPY. 3Interpretive Data: Heparin Therapeutic Range: 57 - 92 Seconds Microbiology Reports PROCEDURE:Culture: Blood STATUS: Auth (Verified) BODY SITE: Right Hand COLLECTED DATE/TIME: 01/01/2012 19:15:00 SOURCE: Blood FREE TEXT SOURCE: FINAL REPORTS Final Report No Growth At 5 Days PRELIMINARY REPORTS Preliminary Report No Growth At 3 Days Preliminary Report No Growth At 1 Day Preliminary Report No Growth; Holding Preliminary Report No Growth At 4 Days Preliminary Report No Growth At 2 Days PROCEDURE:Culture: Blood STATUS: Auth (Verified) BODY SITE: PICC Line COLLECTED DATE/TIME: 01/01/2012 18:52:00 SOURCE: Blood FREE TEXT SOURCE: FINAL REPORTS Final Report No Growth At 5 Days PRELIMINARY REPORTS Preliminary Report No Growth At 2 Days Preliminary Report No Growth At 1 Day Preliminary Report No Growth At 4 Days Preliminary Report No Growth At 3 Days Preliminary Report No Growth; Holding
--- OUTSIDE RECORDS SUMMARY | 2020-03-18 10:20 | XMS REPORT | Summary of Care ---
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 Discontinued methadone 2.5 mg, 0.5 tab, Route: PO, Drug form: TAB, Daily, Dosing Weight 69.8, kg, Start date: 08/17/15 9:00:00, Duration: 5 day, Stop date: 08/21/15 9:00:00 Notes: (Same as: Dolophine) Start Date: 08/17/15 Stop Date: 08/19/15 Status: Discontinued methadone 5 mg oral tablet 5 mg = 1 tab, PO, Q8H, 0 Refill(s) Start Date: 08/24/15 Status: Ordered methadone 5 mg oral tablet 5 mg = 1 tab, PO, Q8H, 0 Refill(s) Start Date: 08/24/15 Stop Date: 08/24/15 Status: Discontinued morphine Sulfate 2 mg, 1 mL, Route: IVP, Drug form: INJ, Q5Min, Dosing Weight 69.8, kg, PRN Pain Score 4-6, Start date: 08/18/15 9:42:00, Duration: 5 doses or times, Stop date: Limited # of times Notes: (Same as:MORPhine Sulfate) Start Date: 08/18/15 Stop Date: 08/18/15 Status: Discontinued multivitamin 1 tab, PO, Daily, 0 Refill(s) Start Date: 08/24/15 Stop Date: 08/24/15 Status: Discontinued multivitamin 1 tab, Route: PO, Drug Form: TAB, Dosing Weight 69.8, kg, Daily, Start date: 03/19 9:00:00, Duration: 30 day, Stop date: 09/09/15 9:00:00 Notes: (Same as: Nephro-Mima Rx and Diatx) Give with food. Start Date: 08/11/15 Stop Date: 08/24/15 Status: Discontinued multivitamin 1 tab, PO, Daily, 0 Refill(s) Start Date: 08/24/15 Status: Ordered naloxone 0.2 mg, 0.5 mL, Route: IVP, Drug form: INJ, Q5Min, PRN Narcotic Reversal, Start date: 08/21/15 10:56:00, Duration: 30 day, Stop date: 09/20/15 10:55:00 Notes: (Same as: Narcan) Start Date: 08/21/15 Stop Date: 08/24/15 Status: Discontinued naloxone 0.04 mg, 0.1 mL, Route: IVP, Drug form: INJ, Q2MIN, Dosing Weight 69.8, kg, PRN Narcotic Reversal, Start date: 08/18/15 9:42:00, Duration: 8 doses or times, Sto p date: Limited # of times Notes: Same as Narcan Start Date: 08/18/15 Stop Date: 08/18/15 Status: Discontinued naloxone 0.4 mg/mL injectable solution 0.2 mg = 0.5 mL, IVP, Q5Min, PRN Narcotic Reversal, 0 Refill(s) Start Date: 08/24/15 Status: Ordered Neutra-Phos 2 pkt, Route: PO, Drug Form: PDR/REC, Dosing Weight 69.8, kg, PRN, PRN Abnormal Lab Result, FOR ICU USE ONLY, Start date: 08/09/15 8:48:00, Duration: 30 day, St op date: 09/08/15 8:47:00 Notes: (Same as: Neutra-Phos) Each 1.25 gm pkt has 250mg phosphorous. Mix w/2.5 oz water and stir. Start Date: 08/09/15 Stop Date: 08/16/15 Status: Discontinued Nicorette 4 mg, Route: CHEW, Q1H, Dosing Weight 69.8, kg, PRN Other -See Comment, Start da te: 08/21/15 23:31:00, Duration: 30 day, Stop date: 09/20/15 23:30:00 Start Date: 08/21/15 Stop Date: 08/21/15 Status: Deleted Nicorette 4 mg Nicorette 4 mg, 1 gum, Drug form: MISC, Route: CHEW, Q1H, PRN Other -See Comment , 08/21/15 23:48:00, Duration: 30 day, Stop date: 09/20/15 23:47:00 Start Date: 08/21/15 Stop Date: 08/24/15 Status: Discontinued nicotine 2 mg, Route: CHEW, Drug form: GUM, Q2H, Dosing Weight 69.8, kg, PRN as needed fo r smoking cessation, Start date: 08/09/15 15:08:00, Duration: 30 day, Stop date: 09/08/15 15:07:00 Start Date: 08/09/15 Stop Date: 08/09/15 Status: Deleted nicotine 2 mg oral transmucosal gum 2 mg = 1 ea, CHEW, Q2H, PRN for smoking cessation, X 2 week, # 168 ea, 0 Refill( s) Start Date: 08/24/15 Stop Date: 09/07/15 Status: Ordered norepinephrine 8 mg in 250 mL (Titrate.) IV 8 mg + Dextrose 5% in Water IV 242 m L 8 mg, 8 mL, Rate: Titrate, Start Dose: 5 microgram/min, Titration: 2 microgram/m in every 2-5 minutes, Goal(s): MAP >= 65 mmHg, Max Dose: 70 microgram/min, Route: IV, Dosing Weight 86.364 kg, Total Volume: 250, Start date: 08/08/15 19:14:00, Duration:... Notes: Not for direct administration - DILUTE. Protect from light. (Same as:Levo phed). Administer by either central venous catheter or peripherally-inserted guillermina tral catheter (PICC) line. Start Date: 08/08/15 Stop Date: 08/12/15 Status: Discontinued NS (Bolus) IV 500 mL, 500 ml/hr, Route: IV, ONCE, Priority: STAT, Dosing Weight 69.8 kg, Start date: 08/13/15 8:43:00, Duration: 1 doses or times, Stop date: 08/13/15 8:43:00 Start Date: 08/13/15 Stop Date: 08/13/15 Status: Completed NS (Bolus) IV 1,000 mL, 1,000 ml/hr, Infuse Over: 1 hr, Route: IV, 1,000, Drug form: INJ, ONCE , Priority: STAT, Dosing Weight 86.364 kg, Start date: 08/08/15 14:30:00, Durati on: 1 doses or times, Stop date: 08/08/15 14:30:00 Start Date: 08/08/15 Stop Date: 08/08/15 Status: Completed NS (Bolus) IV 1,000 mL, 1,000 ml/hr, Infuse Over: 1 hr, Route: IV, 1,000, Drug form: INJ, ONCE , Priority: STAT, Dosing Weight 86.364 kg, Start date: 08/08/15 17:08:00, Durati on: 1 doses or times, Stop date: 08/08/15 17:08:00 Start Date: 08/08/15 Stop Date: 08/08/15 Status: Completed NS (Bolus) IV 1,000 mL, 1,000 ml/hr, Infuse Over: 1 hr, Route: IV, 1,000, Drug form: INJ, ONCE , Priority: STAT, Dosing Weight 86.364 kg, Start date: 08/08/15 14:10:00, Durati on: 1 doses or times, Stop date: 08/08/15 14:10:00 Start Date: 08/08/15 Stop Date: 08/08/15 Status: Completed ondansetron 4 mg, 2 mL, Route: IVP, Drug form: INJ, ONCE, Dosing Weight 69.8, kg, PRN Nausea & Vomiting, Start date: 08/18/15 9:42:00 Notes: (Same as: Klaus) MEDICATION WASTE Product Size: 4 mgProduct Was reinaldo: ___ mg Start Date: 08/18/15 Stop Date: 08/18/15 Status: Discontinued ondansetron 4 mg, 2 mL, Route: IVP, Drug form: INJ, Q6H, Dosing Weight 69.8, kg, PRN Nausea & Vomiting, Start date: 08/18/15 9:15:00, Duration: 30 day, Stop date: 09/17/15 9:14:00 Notes: (Same as: Klaus) MEDICATION WASTE Product Size: 4 mgProduct Was reinaldo: ___ mg Start Date: 08/18/15 Stop Date: 08/24/15 Status: Discontinued ondansetron 4 mg, 2 mL, Route: IV, Drug form: INJ, Q6H, Dosing Weight 69.8, kg, PRN Nausea, Priority: STAT, Start date: 08/16/15 16:15:00, Duration: 30 day, Stop date: 09/04 09/19 16:14:00 Notes: (Same as: Klaus) MEDICATION WASTE Product Size: 4 mgProduct Was reinaldo: ___ mg Start Date: 08/16/15 Stop Date: 08/20/15 Status: Discontinued pantoprazole 40 mg, 1 tab, Route: PO, Drug form: ECTAB, Before Dinner, Dosing Weight 69.8, kg , Start date: 08/10/15 16:30:00, Duration: 30 day, Stop date: 09/08/15 16:30:00 Notes: Tablet should not be chewed or crushed.(Same as: Protonix) Start Date: 08/10/15 Stop Date: 08/24/15 Status: Discontinued pantoprazole 40 mg oral enteric coated tablet 40 mg = 1 tab, PO, Before Dinner, 0 Refill(s) Start Date: 08/24/15 Stop Date: 08/24/15 Status: Discontinued pantoprazole 40 mg oral enteric coated tablet 40 mg = 1 tab, PO, Before Dinner, 0 Refill(s) Start Date: 08/24/15 Status: Ordered Kareen-Colace 1 tab, Route: PO, Drug Form: TAB, Dosing Weight 69.8, kg, BID, NOW, Start date: 08/13/15 11:09:00, Duration: 30 day, Stop date: 09/12/15 9:00:00 Notes: (Same as Se-Gutierrez) Equiv. to Kareen-Colace. Start Date: 08/13/15 Stop Date: 08/22/15 Status: Discontinued Kareen-Colace 1 tab, Route: PO, Drug Form: TAB, Dosing Weight 69.8, kg, BID, PRN Constipation, Start date: 08/22/15 18:56:00, Duration: 30 day, Stop date: 09/21/15 18:55:00 Notes: (Same as Se-S) Equiv. to Kareen-Colace. Start Date: 08/22/15 Stop Date: 08/24/15 Status: Discontinued phenylephrine 100 microgram, 0.01 mL, Route: IVP, Drug form: INJ, ONCE, Dosing Weight 86.364, kg, Start date: 08/08/15 18:48:00, Stop date: 08/08/15 18:48:00 Notes: (Same as: Kilo-Synephrine) Start Date: 08/08/15 Stop Date: 08/08/15 Status: Completed potassium chloride 20 mEq, 15 mL, Route: NJ, Drug form: LIQ, PRN, Dosing Weight 86.364, kg, PRN Abn ormal Lab Result, For NON-ICU Patients Only, Start date: 08/09/15 1:18:00, Durat ion: 30 day, Stop date: 09/08/15 1:17:00 Notes: (Same as: Potassium Chloride) Start Date: 08/09/15 Stop Date: 08/09/15 Status: Discontinued potassium chloride 20 mEq, 1 tab, Route: PO, Drug form: ERTAB, PRN, Dosing Weight 86.364, kg, PRN A bnormal Lab Result, For NON-ICU Patients Only, Start date: 08/09/15 1:18:00, Dur ation: 30 day, Stop date: 09/08/15 1:17:00 Notes: (Same as: K-Dur 20)"Do Not Crush" With food and full glass of water Start Date: 08/09/15 Stop Date: 08/09/15 Status: Discontinued potassium chloride 10 mEq, 100 mL, Route: IVPB, Drug form: INJ, PRN, Dosing Weight 69.8, kg, PRN Ab normal Lab Result, Via peripheral line, Start date: 08/09/15 8:48:00, Duration: 30 day, Stop date: 09/08/15 8:47:00, FOR ICU USE ONLY Notes: Infuse at a rate of 10 mEq/hr.(Same as: KCL) Start Date: 08/09/15 Stop Date: 08/16/15 Status: Discontinued potassium chloride 20 mEq, 100 mL, Route: IVPB, Drug form: INJ, PRN, Dosing Weight 69.8, kg, PRN Ab normal Lab Result, Via central line, Start date: 08/09/15 8:48:00, Duration: 30 day, Stop date: 09/08/15 8:47:00, FOR ICU USE ONLY Notes: (Same as: KCL) Infuse no faster than 10 mEq/hr if given peripherally. Start Date: 08/09/15 Stop Date: 08/16/15 Status: Discontinued potassium chloride 20 mEq, 1 tab, Route: PO, Drug form: ERTAB, PRN, Dosing Weight 69.8, kg, PRN Abn ormal Lab Result, Start date: 08/09/15 8:48:00, Duration: 30 day, Stop date: 12/17 8:47:00, FOR ICU USE ONLY Notes: (Same as: K-Dur 20)"Do Not Crush" With food and full glass of water Start Date: 08/09/15 Stop Date: 08/16/15 Status: Discontinued potassium chloride 20 mEq, 15 mL, Route: NJ, Drug form: LIQ, PRN, Dosing Weight 69.8, kg, PRN Abnor mal Lab Result, Start date: 08/09/15 8:48:00, Duration: 30 day, Stop date: 09/08 8:47:00, FOR ICU USE ONLY Notes: (Same as: Potassium Chloride) Start Date: 08/09/15 Stop Date: 08/16/15 Status: Discontinued potassium phosphate + Sodium Chloride 0.9% IV 250 mL 15 mmol, 5 mL, Route: IVPB, PRN, Dosing Weight 86.364, kg, PRN Abnormal Lab Resu lt, For NON-ICU Patients Only., Start date: 08/09/15 1:18:00, Duration: 30 day, Stop date: 09/08/15 1:17:00 Notes: (Same as: K Phosphate.) 1 mMol phoshate has 1.47 mEq potassium Infuse o crissy 4 hours Start Date: 08/09/15 Stop Date: 08/09/15 Status: Discontinued potassium phosphate + Sodium Chloride 0.9% IV 250 mL 30 mmol, 10 mL, Route: IVPB, PRN, Dosing Weight 86.364, kg, PRN Abnormal Lab Res ult, For NON-ICU Patients Only., Start date: 08/09/15 1:18:00, Duration: 30 day, Stop date: 09/08/15 1:17:00 Notes: (Same as: K Phosphate.) 1 mMol phoshate has 1.47 mEq potassium Infuse o crissy 4 hours Start Date: 08/09/15 Stop Date: 08/09/15 Status: Discontinued potassium phosphate + Sodium Chloride 0.9% IV 250 mL 15 mmol, 5 mL, Route: IVPB, PRN, Dosing Weight 69.8, kg, PRN Abnormal Lab Result , Start date: 08/09/15 8:48:00, Duration: 30 day, Stop date: 09/08/15 8:47:00, F OR ICU USE ONLY Notes: (Same as: K Phosphate.) 1 mMol phoshate has 1.47 mEq potassium Infuse o crissy 4 hours Start Date: 08/09/15 Stop Date: 08/16/15 Status: Discontinued potassium phosphate + Sodium Chloride 0.9% IV 250 mL 45 mmol, 15 mL, Route: IVPB, PRN, Dosing Weight 69.8, kg, PRN Abnormal Lab Resul t, Start date: 08/09/15 8:48:00, Duration: 30 day, Stop date: 09/08/15 8:47:00, FOR ICU USE ONLY Notes: (Same as: K Phosphate.) 1 mMol phoshate has 1.47 mEq potassium Infuse o crissy 4 hours Start Date: 08/09/15 Stop Date: 08/16/15 Status: Discontinued potassium phosphate + Sodium Chloride 0.9% IV 250 mL 30 mmol, 10 mL, Route: IVPB, PRN, Dosing Weight 69.8, kg, PRN Abnormal Lab Resul t, Start date: 08/09/15 8:48:00, Duration: 30 day, Stop date: 09/08/15 8:47:00, FOR ICU USE ONLY Notes: (Same as: K Phosphate.) 1 mMol phoshate has 1.47 mEq potassium Infuse o crissy 4 hours Start Date: 08/09/15 Stop Date: 08/16/15 Status: Discontinued potassium phosphate-sodium phosphate 250 mg-278 mg-164 mg oral powder 2 pkt, Route: PO, Drug Form: PDR/REC, Dosing Weight 86.364, kg, PRN, PRN Abnorma l Lab Result, For NON-ICU Patients Only, Start date: 08/09/15 1:18:00, Duration: 30 day, Stop date: 09/08/15 1:17:00 Notes: (Same as: Neutra-Phos) Each 1.25 gm pkt has 250mg phosphorous. Mix w/2.5 oz water and stir. Start Date: 08/09/15 Stop Date: 08/09/15 Status: Discontinued Protonix 40 mg, Route: IVP, Daily, Dosing Weight 86.364, kg, Start date: 08/09/15 9:00:00 , Duration: 30 day, Stop date: 09/07/15 9:00:00 Start Date: 08/09/15 Stop Date: 08/09/15 Status: Deleted Protonix + sodium chloride 10 mL 40 mg, Route: IVP, Before Dinner, Start date: 08/09/15 16:30:00, Duration: 30 da y, Stop date: 09/07/15 16:30:00 Notes: For IV push reconstitute with 10 ml 0.9% sodium chloride and push over 2 minutes. (Same as: Protonix) Start Date: 08/09/15 Stop Date: 08/10/15 Status: Discontinued remove patch 1 patch, Route: TOP, Drug form: ERFILM, Daily, Start date: 08/11/15 9:00:00, Dur ation: 30 day, Stop date: 09/09/15 9:00:00 Start Date: 08/11/15 Stop Date: 08/21/15 Status: Discontinued remove patch 1 patch, Route: TOP, Drug form: ERFILM, Q72H, Start date: 08/19/15 17:00:00, Dur ation: 30 day, Stop date: 09/15/15 17:00:00 Start Date: 08/19/15 Stop Date: 08/24/15 Status: Discontinued Saline Flush 0.9% 10 mL, Route: IVP, Drug Form: INJ, Dosing Weight 86.364, kg, PRN, PRN Line Flush , Start date: 08/08/15 13:38:00, Duration: 30 day, Stop date: 09/07/15 13:37:00 Notes: (Same as: BD Posiflush) Start Date: 08/08/15 Stop Date: 08/24/15 Status: Discontinued Santyl 1 appl, Route: TOP, Daily, Drug form: OINT, Apply santyl collagenase ointment to both ankle wounds and left foot wound daily., Start date: 08/15/15 9:00:00, Dur ation: 30 day, Stop date: 09/13/15 9:00:00 Notes: (Same As: Santyl) Start Date: 08/15/15 Stop Date: 08/24/15 Status: Discontinued Sodium Chloride 0.9% (Bolus) IV 500 mL, 500 ml/hr, Infuse Over: 1 hr, Route: IV, 500, Drug form: INJ, ONCE, Prio rity: STAT, Dosing Weight 69.8 kg, Start date: 08/13/15 11:03:00, Duration: 1 do ses or times, Stop date: 08/13/15 11:03:00 Start Date: 08/13/15 Stop Date: 08/13/15 Status: Completed Sodium Chloride 0.9% (titrate) 250 mL 250 mL, Rate: faculty i on call medical assistant for use with blood product administration, Dosing Weight 6 9.8, kg, Route: IV, Total Volume: 250, Start Date: 08/21/15 10:12:00, Duration: 30 day, Stop date: 09/20/15 10:11:00, Replace Every: 24 hr Start Date: 08/21/15 Stop Date: 08/24/15 Status: Discontinued Sodium Chloride 0.9% IV 25 mL, Route: IV, Start date: 08/09/15 0:51:00, Duration: 30 day, Stop date: 12/17 0:50:00, PRN Line Flush Start Date: 08/09/15 Stop Date: 08/24/15 Status: Discontinued Sodium Chloride 0.9% IV 1,000 mL 1,000 mL, Rate: 75 ml/hr, Infuse over: 13.3 hr, Route: IV, Dosing Weight 69.8 kg , Total Volume: 1,000, Start date: 08/11/15 9:15:00, Duration: 30 day, Stop date : 09/10/15 9:14:00 Start Date: 08/11/15 Stop Date: 08/24/15 Status: Discontinued Sodium Chloride 0.9% IV 1,000 mL 1,000 mL, Rate: 150 ml/hr, Infuse over: 6.7 hr, Route: IV, Dosing Weight 69.8 kg , Total Volume: 1,000, Start date: 08/10/15 9:09:00, Duration: 30 day, Stop date : 09/09/15 9:08:00 Start Date: 08/10/15 Stop Date: 08/11/15 Status: Discontinued sodium phosphate + Sodium Chloride 0.9% IV 250 mL 30 mmol, 10 mL, Route: IVPB, PRN, Dosing Weight 86.364, kg, PRN Abnormal Lab Res ult, For NON-ICU Patients Only., Start date: 08/09/15 1:18:00, Duration: 30 day, Stop date: 09/08/15 1:17:00 Start Date: 08/09/15 Stop Date: 08/09/15 Status: Discontinued sodium phosphate + Sodium Chloride 0.9% IV 250 mL 15 mmol, 5 mL, Route: IVPB, PRN, Dosing Weight 86.364, kg, PRN Abnormal Lab Resu lt, For NON-ICU Patients Only., Start date: 08/09/15 1:18:00, Duration: 30 day, Stop date: 09/08/15 1:17:00 Start Date: 08/09/15 Stop Date: 08/09/15 Status: Discontinued sodium phosphate + Sodium Chloride 0.9% IV 250 mL 30 mmol, 10 mL, Route: IVPB, PRN, Dosing Weight 69.8, kg, PRN Abnormal Lab Resul t, Start date: 08/09/15 8:48:00, Duration: 30 day, Stop date: 09/08/15 8:47:00, FOR ICU USE ONLY Start Date: 08/09/15 Stop Date: 08/16/15 Status: Discontinued sodium phosphate + Sodium Chloride 0.9% IV 250 mL 15 mmol, 5 mL, Route: IVPB, Drug form: INJ, PRN, Dosing Weight 69.8, kg, PRN Abn ormal Lab Result, Start date: 08/09/15 8:48:00, Duration: 30 day, Stop date: 12/17 8:47:00, FOR ICU USE ONLY Start Date: 08/09/15 Stop Date: 08/16/15 Status: Discontinued sodium phosphate + Sodium Chloride 0.9% IV 250 mL 45 mmol, 15 mL, Route: IVPB, Drug form: INJ, PRN, Dosing Weight 69.8, kg, PRN Ab normal Lab Result, Start date: 08/09/15 8:48:00, Duration: 30 day, Stop date: 8:47:00, FOR ICU USE ONLY Start Date: 08/09/15 Stop Date: 08/16/15 Status: Discontinued Tylenol 1,000 mg, 100 mL, Route: IV, Drug form: INJ, Q12H, Dosing Weight 69.8, kg, PRN F or Temp > 100.4 F, Start date: 08/09/15 2:53:00, Duration: 24 hr, Stop date: 08/10/15 2:52:00 Notes: Infuse over 15 minutesDo not exceed 4gm/day of acetaminophen MEDICAT ION WASTE Product Size: 1000 mgProduct Wasted: ___ mg Start Date: 08/09/15 Stop Date: 08/10/15 Status: Completed Tylenol 975 mg, 3 tab, Route: PO, Drug form: TAB, ONCE, Dosing Weight 86.364, kg, Priori ty: STAT, Start date: 08/08/15 19:04:00, Stop date: 08/08/15 19:04:00 Notes: Do not exceed 4 gm/day. (Same as: Tylenol) Start Date: 08/08/15 Stop Date: 08/09/15 Status: Completed vancomycin 1.5 gm, 250 mL, Route: IVPB, Drug form: INJ, ONCE, Dosing Weight 86.364, kg, Jojo ority: STAT, Start date: 08/08/15 14:28:00, Stop date: 08/08/15 14:28:00 Notes: TIME CRITICAL MEDICATIONSame as: Vancocin-NS (premixed)Infusion rate< 1000 mg: infuse over 1 [id number] - 1500 mg: infuse over 1.5 [id number] - 2000 mg: infuse over 2 hours> 2001 mg: infuse over 2.5 hours Start Date: 08/08/15 Stop Date: 08/08/15 Status: Completed vancomycin 1.25 gm, 250 mL, Route: IV, Drug form: INJ, ONCE, Dosing Weight 86.364, kg, Star t date: 08/09/15 0:48:00, Stop date: 08/09/15 0:48:00 Notes: TIME CRITICAL MEDICATIONSame as: Vancocin-NS (premixed)Infusion rate< 1000 mg: infuse over 1 [id number] - 1500 mg: infuse over 1.5 [id number] - 2000 mg: infuse over 2 hours> 2001 mg: infuse over 2.5 hours Start Date: 08/09/15 Stop Date: 08/09/15 Status: Completed vancomycin + Sodium Chloride 0.9% IV 250 mL 1 gm, Route: IVPB, ONCE, Dosing Weight 69.8, kg, Start date: 08/11/15 14:31:00, Stop date: 08/11/15 14:31:00 Notes: TIME CRITICAL MEDICATION(Same As: Vancocin)Infusion rate< 1000 mg: infuse over 1 [id number] - 1500 mg: infuse over 1.5 [id number] - 2000 mg: infuse over 2 hours> 2001 mg: infuse over 2.5 hours MEDICATION WASTE Product Size: 1000 mgProduct Wasted: ___ mg Start Date: 08/11/15 Stop Date: 08/11/15 Status: Completed Xanax 1 mg, PO, BID, 0 Refill(s) Start Date: 08/09/15 Status: Ordered Xanax 1 mg oral tablet 1 mg, 1 tab, Route: PO, Drug form: TAB, BID, Dosing Weight 69.8, kg, Start date: 08/09/15 17:00:00, Duration: 30 day, Stop date: 09/08/15 9:00:00 Notes: With food or milk(Same as: Xanax) Start Date: 08/09/15 Stop Date: 08/24/15 Status: Discontinued Xanax 1 mg oral tablet 1 mg, 1 tab, Route: PO, Drug form: TAB, Q6H, Dosing Weight 69.8, kg, PRN Anxiety , Priority: STAT, Start date: 08/16/15 16:12:00, Duration: 30 day, Stop date: 16:11:00 Notes: With food or milk(Same as: Xanax) Start Date: 08/16/15 Stop Date: 08/21/15 Status: Discontinued Xanax 2 mg oral tablet 2 mg, 2 tab, Route: PO, Drug form: TAB, Bedtime, Dosing Weight 69.8, kg, PRN Anx iety, Start date: 08/21/15 12:20:00, Duration: 30 day, Stop date: 09/20/15 12:19 :00 Notes: With food or milk(Same as: Xanax) Start Date: 08/21/15 Stop Date: 08/24/15 Status: Discontinued zinc sulfate 220 mg, 1 cap, Route: PO, Drug form: CAP, Daily, Dosing Weight 69.8, kg, Start d ate: 08/10/15 9:00:00, Duration: 30 day, Stop date: 09/08/15 9:00:00 Notes: (Zinc sulfate capsule) - 220 mg Zinc sulfate = 50 mg elemental zinc Same as Zinc Sulfate Start Date: 08/10/15 Stop Date: 08/24/15 Status: Discontinued zolpidem 5 mg = 1 tab, PO, Bedtime, PRN Insomnia, 0 Refill(s) Start Date: 08/24/15 Status: Ordered zolpidem 5 mg, 1 tab, Route: PO, Drug form: TAB, Bedtime, Dosing Weight 69.8, kg, PRN Ins omnia, Start date: 08/18/15 9:15:00, Duration: 30 day, Stop date: 09/17/15 9:14: 00 Notes: (Same As: Ambien) Start Date: 08/18/15 Stop Date: 08/24/15 Status: Discontinued Zyvox 600 mg, 1 tab, Route: PO, Drug form: TAB, [id number], Dosing Weight 69.8, kg, Start date: 08/22/15 21:00:00, Duration: 30 day, Stop date: 09/21/15 9:00:00 Notes: Protect from light. (Same as: Zyvox) Start Date: 08/22/15 Stop Date: 08/24/15 Status: Discontinued Results BLOOD BANK RESULTS 1 2 3 Most recent to oldest [Reference Range]: A POS *Unknown* (08/18/15 9:05 AM) A POS *Unknown* (08/08/15 3:29 PM) ABO/Rh Negative (08/18/15 9:05 AM) Negative (08/08/15 3:29 PM) Antibody Scrn Product available (08/21/15 10:12 AM) Product available 1 (08/18/15 9:34 AM) RBC product 1Result Comment: 08/18/2015 10:26 ANDER CALLED AT 1025 TO AYUSH ELECTROLYTES 1 2 3 Most recent to oldest [Reference Range]: 138 mEq/L (08/23/15 9:30 AM) 136 mEq/L (08/23/15 6:32 AM) 138 mEq/L (08/21/15 1:00 PM) Sodium Lvl [135-145 mEq/L] 4.6 mEq/L (08/23/15 9:30 AM) 4.7 mEq/L (08/23/15 6:32 AM) 4.6 mEq/L (08/21/15 1:00 PM) Potassium Lvl [3.5-5.1 mEq/L] 102 mEq/L (08/23/15 9:30 AM) 102 mEq/L (08/23/15 6:32 AM) 104 mEq/L (08/21/15 1:00 PM) Chloride Lvl [95-109 mEq/L] 29 mEq/L (08/23/15 9:30 AM) 28 mEq/L (08/23/15 6:32 AM) 27 mEq/L (08/21/15 1:00 PM) CO2 [24-32 mEq/L] 11.6 mEq/L (08/23/15 9:30 AM) 10.7 mEq/L (08/23/15 6:32 AM) 11.6 mEq/L (08/21/15 1:00 PM) AGAP [10.0-20.0 mEq/L] 138 mEq/L (08/18/15 9:50 AM) POC Sodium [135-145 mEq/L] 4.2 mEq/L (08/18/15 9:50 AM) POC Potassium [3.5-5.1 mEq/L] CHEM PANEL 1 2 3 Most recent to oldest [Reference Range]: 0.91 mg/dL (08/23/15 9:30 AM) 0.95 mg/dL (08/23/15 6:32 AM) 1.00 mg/dL (08/21/15 1:00 PM) Creatinine Lvl [0.50-1.40 mg/dL] 113 mL/min/1.73m2 1 *NA* (08/23/15 9:30 AM) 107 mL/min/1.73m2 2 *NA* (08/23/15 6:32 AM) 101 mL/min/1.73m2 3 *NA* (08/21/15 1:00 PM) eGFR 13 mg/dL (08/23/15 9:30 AM) 12 mg/dL (08/23/15 6:32 AM) 13 mg/dL (08/21/15 1:00 PM) BUN [7-22 mg/dL] 14 (08/19/15 5:34 AM) 15 (08/18/15 5:40 AM) 18 (08/17/15 6:20 AM) B/C Ratio [6-25] 58 mg/dL *LOW* (08/23/15 9:30 AM) 83 mg/dL (08/23/15 6:32 AM) 64 mg/dL *LOW* (08/21/15 1:00 PM) Glucose Lvl [70-99 mg/dL] 78 mg/dL (08/18/15 9:50 AM) POC Glucose [70-99 mg/dL] 6.9 g/dL (08/19/15 5:34 AM) 6.3 g/dL *LOW* (08/18/15 5:40 AM) 6.2 g/dL *LOW* (08/17/15 6:20 AM) Total Protein [6.4-8.4 g/dL] 1.9 g/dL *LOW* (08/23/15 9:30 AM) 1.8 g/dL *LOW* (08/23/15 6:32 AM) 1.9 g/dL *LOW* (08/21/15 1:00 PM) Albumin Lvl [3.5-5.0 g/dL] 5.2 g/dL *HI* (08/19/15 5:34 AM) 4.5 g/dL *HI* (08/18/15 5:40 AM) 4.4 g/dL *HI* (08/17/15 6:20 AM) Globulin [2.0-4.0 g/dL] 0.3 *LOW* (08/19/15 5:34 AM) 0.4 *LOW* (08/18/15 5:40 AM) 0.4 *LOW* (08/17/15 6:20 AM) A/G Ratio [0.7-1.6] 8.0 mg/dL *LOW* (08/23/15 9:30 AM) 8.6 mg/dL (08/23/15 6:32 AM) 7.7 mg/dL *LOW* (08/21/15 1:00 PM) Calcium Lvl [8.5-10.5 mg/dL] 3.1 mg/dL (08/23/15 9:30 AM) 3.2 mg/dL (08/23/15 6:32 AM) 3.5 mg/dL (08/21/15 1:00 PM) Phosphorus [2.5-4.5 mg/dL] 3.0 mg/dL *HI* (08/10/15 3:20 AM) 3.7 mg/dL 4 *CRIT* (08/09/15 5:11 PM) 1.4 mg/dL *LOW* (08/09/15 3:14 AM) Magnesium Lvl [1.8-2.4 mg/dL] 12 unit/L (08/19/15 5:34 AM) 14 unit/L (08/18/15 5:40 AM) 12 unit/L (08/17/15 6:20 AM) ALT [0-65 unit/L] 10 unit/L (08/19/15 5:34 AM) 10 unit/L (08/18/15 5:40 AM) 12 unit/L (08/17/15 6:20 AM) AST [0-37 unit/L] 74 unit/L (08/19/15 5:34 AM) 79 unit/L (08/18/15 5:40 AM) 73 unit/L (08/17/15 6:20 AM) Alk Phos [39-136 unit/L] 0.2 mg/dL (08/19/15 5:34 AM) 0.3 mg/dL (08/18/15 5:40 AM) 0.2 mg/dL (08/17/15 6:20 AM) Bili Total [0.2-1.3 mg/dL] 47.0 uMol/L *HI* (08/11/15 4:09 AM) 51.0 uMol/L *HI* (08/08/15 2:45 PM) Ammonia [<=45.0 uMol/L] 0.9 mMol/L (08/11/15 4:09 AM) 3.0 mMol/L *HI* (08/08/15 7:00 PM) 3.6 mMol/L *HI* (08/08/15 3:28 PM) Lactic Acid Lvl [0.5-2.2 mMol/L] 1Result [...] BMI. 4Result Comment: Critical Result(s) called to Cierra Whitman at 08/09/2015 19:21_ by KB_. Read back OK. CARDIAC ENZYMES 1 2 3 Most recent to oldest [Reference Range]: <0.02 ng/mL (08/08/15 3:28 PM) Troponin-I [0.00-0.40 ng/mL] DRUG SCREEN 1 2 3 Most recent to oldest [Reference Range]: Negative *NA* (08/08/15 5:39 PM) U Amph Scr [Negative] Negative *NA* (08/08/15 5:39 PM) U Chelsie Scr [Negative] Positive *ABN* (08/08/15 5:39 PM) U Benzodia Scr [Negative] Negative *NA* (08/08/15 5:39 PM) U Cocaine Scr [Negative] Positive *ABN* (08/08/15 5:39 PM) U Opiate Scr [Negative] Negative *NA* (08/08/15 5:39 PM) U Phencyc Scr [Negative] Positive *ABN* (08/08/15 5:39 PM) U Cannab Scr [Negative] See Note (08/08/15 5:39 PM) UDS Note TOXICOLOGY 1 2 3 Most recent to oldest [Reference Range]: <2.5 ug/ml *NA* (08/16/15 6:18 AM) 6.9 ug/ml *NA* (08/15/15 6:15 AM) <2.5 ug/ml *NA* (08/14/15 8:10 AM) Amikacin Lvl 17.2 ug/ml *NA* (08/13/15 5:01 AM) 27.7 ug/ml *NA* (08/12/15 4:40 AM) 14.2 ug/ml *NA* (08/11/15 4:09 AM) Vanco Lvl <.003 % *NA* (08/08/15 3:28 PM) Etoh (%) <3 mg/dL *NA* (08/08/15 3:28 PM) Ethanol Lvl URINE AND STOOL 1 2 3 Most recent to oldest [Reference Range]: Marked *ABN* (08/08/15 5:39 PM) UA Turbidity [Clear] Sasha *NA* (08/08/15 5:39 PM) UA Color 6.0 (08/08/15 5:39 PM) UA pH [5.0-8.0] 1.013 (08/08/15 5:39 PM) UA Spec Grav [<=1.030] Negative mg/dL *NA* (08/08/15 5:39 PM) UA Glucose [Negative mg/dL] Moderate *ABN* (08/08/15 5:39 PM) UA Blood [Negative] Negative *NA* (08/08/15 5:39 PM) UA Ketones 100 mg/dL *ABN* (08/08/15 5:39 PM) UA Protein [Negative mg/dL] <=1.0 mg/dL *NA* (08/08/15 5:39 PM) UA Urobilinogen [0.1-1.0 mg/dL] Negative *NA* (08/08/15 5:39 PM) UA Bili [Negative] Moderate *ABN* (08/08/15 5:39 PM) UA Leuk Est [Negative] Negative (08/08/15 5:39 PM) UA Nitrite [Negative] >182 /HPF *HI* (08/08/15 5:39 PM) UA WBC [0-5 /HPF] 53 /HPF *HI* (08/08/15 5:39 PM) UA RBC [0-2 /HPF] Many /HPF *ABN* (08/08/15 5:39 PM) UA Bacteria [None Seen /HPF] Few /LPF *NA* (08/08/15 5:39 PM) UA Mucus [None Seen /LPF] Performed *NA* (08/08/15 5:39 PM) Micro? IMMUNOLOGY 1 2 3 Most recent to oldest [Reference Range]: 9.0 mg/dL *LOW* (08/13/15 5:00 AM) Prealbumin [18.0-45.0 mg/dL] 94.8 mg/L *HI* (08/11/15 4:09 AM) 234.0 mg/L *HI* (08/09/15 3:14 AM) CRP [<=2.9 mg/L] HEMATOLOGY 1 2 3 Most recent to oldest [Reference Range]: 6.7 K/CMM (08/23/15 9:30 AM) 7.2 K/CMM (08/23/15 6:32 AM) 5.7 K/CMM (08/21/15 1:00 PM) WBC [3.7-10.4 K/CMM] 3.16 M/CMM *LOW* (08/23/15 9:30 AM) 3.11 M/CMM *LOW* (08/23/15 6:32 AM) 2.58 M/CMM *LOW* (08/21/15 1:00 PM) RBC [4.70-6.10 M/CMM] 8.4 g/dL *LOW* (08/23/15 9:30 AM) 8.4 g/dL *LOW* (08/23/15 6:32 AM) 6.8 g/dL 1 *CRIT* (08/21/15 1:00 PM) Hgb [14.0-18.0 g/dL] 26.8 % *LOW* (08/23/15 9:30 AM) 26.3 % *LOW* (08/23/15 6:32 AM) 21.4 % *LOW* (08/21/15 1:00 PM) Hct [42.0-54.0 %] 84.6 fL (08/23/15 9:30 AM) 84.5 fL (08/23/15 6:32 AM) 82.8 fL (08/21/15 1:00 PM) MCV [80.0-94.0 fL] 26.6 pg *LOW* (08/23/15 9:30 AM) 27.2 pg (08/23/15 6:32 AM) 26.2 pg *LOW* (08/21/15 1:00 PM) MCH [27.0-31.0 pg] 31.4 g/dL *LOW* (08/23/15 9:30 AM) 32.2 g/dL (08/23/15 6:32 AM) 31.6 g/dL *LOW* (08/21/15 1:00 PM) MCHC [32.0-36.0 g/dL] 18.0 % *HI* (08/23/15 9:30 AM) 17.8 % *HI* (08/23/15 6:32 AM) 18.9 % *HI* (08/21/15 1:00 PM) RDW [11.5-14.5 %] 284 K/CMM (08/23/15 9:30 AM) 276 K/CMM (08/23/15 6:32 AM) 277 K/CMM (08/21/15 1:00 PM) Platelet [133-450 K/CMM] 7.4 fL (08/23/15 9:30 AM) 7.2 fL *LOW* (08/23/15 6:32 AM) 7.2 fL *LOW* (08/21/15 1:00 PM) MPV [7.4-10.4 fL] 7.5 g/dL *LOW* (08/18/15 9:50 AM) POC Hemoglobin [14.0-18.0 g/dL] 22.0 % *CRIT* (08/18/15 9:50 AM) POC Hematocrit [42.0-54.0 %] 58.2 % (08/23/15 9:30 AM) 55.8 % (08/23/15 6:32 AM) 55.5 % (08/21/15 1:00 PM) Segs [45.0-75.0 %] 5.0 % (08/11/15 4:09 AM) Bands [0.0-11.0 %] 29.3 % (08/23/15 9:30 AM) 32.2 % (08/23/15 6:32 AM) 31.5 % (08/21/15 1:00 PM) Lymphocytes [20.0-40.0 %] 9.0 % (08/23/15 9:30 AM) 8.4 % (08/23/15 6:32 AM) 9.1 % (08/21/15 1:00 PM) Monocytes [2.0-12.0 %] 2.7 % (08/23/15 9:30 AM) 2.7 % (08/23/15 6:32 AM) 3.3 % (08/21/15 1:00 PM) Eosinophils [0.0-4.0 %] 0.8 % (08/23/15 9:30 AM) 0.9 % (08/23/15 6:32 AM) 0.6 % (08/21/15 1:00 PM) Basophils [0.0-1.0 %] 3.9 K/CMM (08/23/15 9:30 AM) 4.0 K/CMM (08/23/15 6:32 AM) 3.2 K/CMM (08/21/15 1:00 PM) Segs-Bands # [1.5-8.1 K/CMM] 2.0 K/CMM (08/23/15 9:30 AM) 2.3 K/CMM (08/23/15 6:32 AM) 1.8 K/CMM (08/21/15 1:00 PM) Lymphocytes # [1.0-5.5 K/CMM] 0.6 K/CMM (08/23/15 9:30 AM) 0.6 K/CMM (08/23/15 6:32 AM) 0.5 K/CMM (08/21/15 1:00 PM) Monocytes # [0.0-0.8 K/CMM] 0.2 K/CMM (08/23/15 9:30 AM) 0.2 K/CMM (08/23/15 6:32 AM) 0.2 K/CMM (08/21/15 1:00 PM) Eosinophils # [0.0-0.5 K/CMM] 0.1 K/CMM (08/23/15 9:30 AM) 0.1 K/CMM (08/23/15 6:32 AM) 0.0 K/CMM (08/21/15 1:00 PM) Basophils # [0.0-0.2 K/CMM] Normal (08/19/15 5:34 AM) Normal (08/17/15 6:20 AM) Normal (08/14/15 4:30 AM) RBC Morph 1+ (08/21/15 1:00 PM) 1+ (08/13/15 5:01 AM) Hypochrom [None Seen] 1+ *ABN* (08/21/15 1:00 PM) Macrocyte [None Seen] Moderate *ABN* (08/21/15 1:00 PM) Moderate *ABN* (08/13/15 5:01 AM) Toxic Gran [None Seen] Normal (08/21/15 1:00 PM) Normal (08/19/15 5:34 AM) Normal (08/17/15 6:20 AM) Plt Morph 18.7 seconds *HI* (08/08/15 7:00 PM) 18.5 seconds *HI* (08/08/15 5:39 PM) PT [12.0-14.7 seconds] 1.53 *HI* (08/08/15 7:00 PM) 1.51 *HI* (08/08/15 5:39 PM) INR [0.85-1.17] 30.4 seconds (08/19/15 5:34 AM) 38.1 seconds *HI* (08/08/15 7:00 PM) 31.5 seconds (08/08/15 5:39 PM) PTT [22.9-35.8 seconds] 1Result Comment: Critical Result(s) called to [facility] at [facility] by bozena. Read back OK. 08/21/2015 14:37 BACTERIAL - SEROLOGY 1 2 3 Most recent to oldest [Reference Range]: Positive 1 *ABN* (08/09/15 6:32 AM) MRSA by PCR 1Result Comment: "Significant Findings called to Cierra Hirsch at 08/09/2015 21:17 by SBA.Read Back OK." Immunizations Vaccine Date Refusal Reason influenza virus vaccine, inactivated 05/28/15 influenza virus vaccine, inactivated 05/16/12 pneumococcal 23-valent vaccine 05/16/12 Procedures Procedure Date Related Diagnosis Body Site INCISION AND DEBRIDEMENT RIGHT HIP WOUND 06/03/15 Colonoscopy 2009 Nephrectomy 2006 Amputation1 Laparoscopy Wound care 1amputation of left 5th toe. Social History Social History Type Response Substance Abuse Use: Current. Type: Mariju alfa. Frequency: 1-2 times per week. IV drug use: No. Drug use interferes with work /home: No. Ready to change: No. Household substance abuse concerns: No. Cessation Education Provided: Yes. Sexual Sexually active: No. Exercise Exercise duration: 0. Employment/School Status: Unemployed. Alcohol Current, Type Beer. Smoking Status Current some day smoker; To bacco use per day: 3; Number of years: 15; Previous treatment: None; Ready to [place] ge: No; Concerns about tobacco use in household: No; Exposure to Tobacco S moke None; Cigarette Smoking Last 365 Days Yes; Reg Smoking Cessation Cou nseling No Assessment and Plan Extracted from: Title: [facility] Hospitalist Discharge Author: Db Patterson NP Date: 08/24/15 Summary Discharge Information Discharge Summary Information: Admitting physician, [...] from medical records and medical power of railway station manager who is at bedside. Patient is unable to provide history secondary to altered mental status. Per medical power of railway station manager, patient has been a resident of a fdc, where he is supposed to be undergoing [...] marijuana. Upon arrival to the emergency room, t emperature was 99.0, pulse of 146, respiratory rate [...] replacment L tib/fib fx, ortho signed off. [facility] resident Pertinent studies: Left foot and tibia/fibula radiograph 08/18/15 Findings: Interval amputation of the fifth metatarsal, fourth metatarsal neck and third proximal phalangeal neck. Surgical wound. Otherwise normal articulations. Note is made of fractures of the distal tibia, fibula. Impression: 1. Postop amputation. Tibial-fibular fr actures. Discharge Plan Discharge Summary Plan Discharge Status: improved. Discharge instructions given: to patient. Discharge disposition: discharge to residential facility. Prescriptions: reviewed with patient, written and [...] solution 40 mg = 0.4 mL, SUB-Q, [id number] 75 mcg/hr transdermal film, extended release 1 patch, TOP, Q72H fluconazole 100 mg oral tablet 200 mg = 2 tab, PO, [id number] lactobacillus acidophilus and bulgaricus , CHEW, QID linezolid 600 mg oral tablet 600 mg = 1 tab, PO, [id number] Merrem 500 mg intravenous injection 500 mg, [...] and zinc. Time spent 35 minutes. Extracted from: Title: [facility] Hospitalist Author: Db Patterson NP Date: 08/18/15 Impression and Plan 30/M paraplegic fdc patient adm itted for severe sepsis with [...] extremity Education and Follow-up: Counseled: Unable to educate/milieu counselor due to clinical condition and lack of family member at bedside. Discharge Planning: Plan to discharge ( To Long-Term Facility, In 5- 7 days ). Ready for D/C: No.
--- OUTSIDE RECORDS SUMMARY | 2020-03-18 10:20 | XMS REPORT | CCD ---
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 3MDRO, URINE, 02/11/2012 4MDRO, URINE, 11/06/2011 5Problem added by Discern Expert. 6URINE, 02/24/2012 7Problem added by Discern Expert. Medications Medication Instructions Start Date End Date Status Neurontin 1,200 mg, 3 cap, Route: PO, Drug 02/14/20122011 Discontinued form: CAP, Bedtime, Start date: 02/14/12 21:00:00, Duration: 30 day, Stop date: 03/14/12 21:00:00 acetaminophen-hydroc 1 tab, Route: PO, Drug Form: TAB, 201102/14/2012 Discontinued odone 325 mg-10 mg Q6H, Start date: 02/13/12 1 8:00:00, oral tablet Duration: 30 day, Stop date : 03/14/12 14:00:00 Dilaudid 4 mg, 2 tab, Route: PO, Drug form: 02/13/201202/01 Discontinued TAB, Q6H, Start date: 02/13/12 20:00:00, Duration: 30 day, Stop date: 03/14/12 16:00:00 Rocephin 1 g/ NS 1 gm, Route: IVPB, Drug form: 02/11/201202/01 Completed (NaCl 0.9%) 50 mL IV PDR/INJ, ONCE, Priority: ST AT, solution Start date: 02/11/12 16:49: 00, Stop date: 02/11/12 16:49:00 morphine Sulfate 2 mg, Route: IVP, ONCE, Start date: 02/24/2012 02/24/2012 Completed 02/24/12 15:10:00, Stop date: 02/24/12 15:10:00 morphine Sulfate 15 mg, 1 tab, Route: PO, Drug form: 02/21/2012 02/25/2012 Discontinued TAB, Q4H-WA, Start date: 02/21/12 22:00:00, Stop date: 03/22/12 18:00:00 morphine Sulfate 5 mg, 1 mL, Route: IVP, Drug form: 02/11/2012 02/11/2012 Completed INJ, ONCE, Priority: STAT, Start date: 02/11/12 14:27:00, Stop date: 02/11/12 14:27:00 Dilaudid 6 mg, 3 tab, Route: PO, Drug form: 02/25/201202/02 Discontinued TAB, Q6H, Start date: 02/25/12 18:00:00, Duration: 30 day, Stop date: 03/26/12 12:00:00 Dilaudid 0.5 mg, Route: IVP, Drug form: INJ, 02/24/2012 Discontinued ONCE, Start date: 02/24/12 15:21:00, Stop date: 02/24/12 15:21:00 Rocephin + Sodium 1 gm, Route: IVPB, Daily, Start 02/12/2012 0 02/12/2012 Discontinued Chloride 0.9% IV 100 date: 02/12/12 17:00:00, Du ration: mL 30 day, Stop date: 03/12/12 17:00:00 morphine Sulfate 4 mg, 0.8 mL, Route: IV, Drug form: 02/11/2012 02/13/2012 Discontinued INJ, Q4H, PRN Pain, Start date: 02/11/12 20:20:00, Duration: 30 day, Stop date: 03/12/12 20:19:00 Dilaudid 6 mg, 3 mL, Route: IV, Drug form: 02/25/201202/24 Deleted INJ, Q6H, PRN Pain, Start date: 02/25/12 17:18:00, Duration: 30 day, Stop date: 03/26/12 17:17:00 acetaminophen-hydroc 1 tab, Route: PO, Drug Form: TAB, 201102/14/2012 Discontinued odone 325 mg-5 mg Q6H, PRN Pain, Start date: 02/12/12 oral tablet 10:17:00, Duration: 30 day, Stop date: 03/13/12 10:16:00 Ditropan XL 10 mg, 2 tab, Route: PO, Drug form: 02/12/2012 Discontinued ERTAB, Bedtime, Start date: 02/12/12 21:00:00, Duration: 30 day, Stop date: 03/12/12 21:00:00 Dilaudid 0.5 mg, Route: IVP, ONCE, Start 02/24/2012 012 Completed date: 02/24/12 15:16:00, Stop date: 02/24/12 15:16:00 Dilaudid 0.5 mg, 0.25 mL, Route: IVP, Drug 02/24/201202/23 Discontinued form: INJ, ONCE, Start date: 02/24/12 15:16:00, Stop date: 02/24/12 15:16:00 Santyl 1 appl, Route: TOP, Daily, Drug 02/13/2012 012 Completed form: OINT, Start date: 02/13/12 9:00:00, Duration: 7 day, Stop date: 02/24/12 9:00:00 morphine Sulfate 2 mg, Route: IVP, ONCE, Start date: 02/24/2012 02/24/2012 Completed 02/24/12 15:07:00, Stop date: 02/24/12 15:07:00 morphine Sulfate 2 mg, Route: IVP, ONCE, Start date: 02/24/2012 02/24/2012 Completed 02/24/12 15:15:00, Stop date: 02/24/12 15:15:00 Valium 5 mg, 1 mL, Route: IVP, Drug form: 02/11/201202/01 Completed INJ, ONCE, Priority: STAT, Start date: 02/11/12 15:57:00, Stop date: 02/11/12 15:57:00 Sodium Chloride 0.9% 1,000 mL, Rate: 1,000 ml/hr, Infuse 02/0102/11/2012 Completed (Bolus) IV 1,000 mL over: 1 hr, Route: IV, Dosi ng Weight 61.364 kg, Total Volume: 1,000, Bolus Dose, Priority: STAT, Start date: 02/11/12 15:57:00, Duration: 1 doses or times, Stop date: 02/11/12 16:56:00 Protonix 40 mg, 1 tab, Route: PO, Drug form: 02/12/2012 Discontinued ECTAB, Before Dinner, Start date: 02/12/12 16:30:00, Duration: 30 day, Stop date: 03/12/12 16:30:00 Dilaudid 6 mg, 3 tab, Route: PO, Drug form: 02/21/201202/02 Discontinued TAB, Q6H, Start date: 02/21/12 0:00:00, Duration: 30 day, Stop date: 03/21/12 18:00:00 morphine Sulfate 2 mg, Route: IVP, ONCE, Start date: 02/24/2012 02/24/2012 Completed 02/24/12 15:06:00, Stop date: 02/24/12 15:06:00 morphine Sulfate 2 mg, Route: IVP, ONCE, Start date: 02/24/2012 02/24/2012 Completed 02/24/12 15:06:00, Stop date: 02/24/12 15:06:00 Zofran 4 mg, Route: IVP, ONCE, Start date: 02/24/2012 Completed 02/24/12 15:06:00, Stop date: 02/24/12 15:06:00 Bactroban 1 appl, Route: TOP, Daily, Drug 02/25/2012 012 Discontinued form: OINT, Start date: 02/25/12 9:00:00, Duration: 30 day, Stop date: 03/25/12 9:00:00 Neurontin 300 mg, 1 cap, Route: PO, Drug 02/12/2012 02/14/20 12 Discontinued form: CAP, TID, Start date: 02/12/12 10:30:00, Duration: 30 day, Stop date: 03/13/12 9:00:00 Dilaudid 0.5 mg, Route: IVP, ONCE, Start 02/24/2012 012 Completed date: 02/24/12 15:26:00, Stop date: 02/24/12 15:26:00 Xanax 2 mg, 2 tab, Route: PO, Drug form: 02/12/201202/02 Discontinued TAB, BID, Start date: 02/12/12 10:30:00, Duration: 30 day, Stop date: 03/13/12 9:00:00 Habitrol 21 mg, 1 patch, Route: TOP, Drug 02/12/20122011 Discontinued form: ERFILM, Q24H, Start date: 02/12/12 16:00:00, Duration: 30 day, Stop date: 03/12/12 16:00:00 Neurontin 600 mg, 2 cap, Route: PO, Drug 02/14/2012 02/28/20 12 Discontinued form: CAP, TID, Start date: 02/14/12 13:00:00, Duration: 30 day, Stop date: 03/15/12 9:00:00 Robaxin 750 mg, 1 tab, Route: PO, Drug 02/12/2012 02/28/20 12 Discontinued form: TAB, TID, Start date: 02/12/12 10:20:00, Duration: 30 day, Stop date: 03/13/12 9:00:00 Zyvox 600 mg, 1 tab, Route: PO, Drug 02/28/2012 02/28/20 12 Discontinued form: TAB, BID, Start date: 02/28/12 9:00:00, Duration: 30 day, Stop date: 03/28/12 17:00:00 lactobacillus 160 mg, 2 cap, Route: PO, Drug 02/12/20122011 Discontinued rhamnosus GG Form: CAP, TID, Start date: 02/12/12 17:00:00, Duration: 30 day, Stop date: 03/13/12 13:00:00 Lovenox 40 mg, 0.4 mL, Route: SUB-Q, Drug 02/21/201202/21 Discontinued form: INJ, Q24H, Start date: 02/21/12 17:00:00, Stop date: 02/23/12 17:00:00 baclofen 10 mg, 1 tab, Route: PO, Drug form: 02/12/2012 Discontinued TAB, Q6H, PRN See Nurse's Notes, Start date: 02/12/12 15:06:00, Duration: 30 day, Stop date: 03/13/12 15:05:00 Maxipime + Sodium 1 gm, Route: IVPB, ABXQ8H, Start 02/12/2012 02/28/2012 Discontinued Chloride 0.9% IV 100 date: 02/12/12 16:00:00, Du ration: mL 30 day, Stop date: 03/13/12 8:00:00 amitriptyline 50 mg, 2 tab, Route: PO, Drug form: 02/21/2012 0 02/22/2012 Discontinued TAB, Bedtime, Start date: 02/21/12 21:00:00, Duration: 30 day, Stop date: 03/21/12 21:00:00 Merrem + Sodium 500 mg, Route: IVPB, ABXQ8H, Start 02/18/2012 02/28/2012 Discontinued Chloride 0.9% IV 100 date: 02/18/12 22:00:00, Du ration: mL 30 day, Stop date: 03/19/12 14:00:00 amitriptyline 150 mg, 1.5 tab, Route: PO, Drug 02/22/201202/02 Discontinued form: TAB, Bedtime, Start date: 02/22/12 21:00:00, Duration: 30 day, Stop date: 03/22/12 21:00:00 Sodium Chloride 0.9% 250 mL, Route: IVPB, Start date: 02/11/2012 02/28/2012 Discontinued IV 02/11/12 14:30:00, Duration : 30 day, Stop date: 03/12/12 14:29:00, PRN Line Flush Dilaudid 0.5 mg, Route: IVP, ONCE, Start 02/24/2012 012 Completed date: 02/24/12 15:22:00, Stop date: 02/24/12 15:22:00 BD Normal Saline 10 mL, Route: IVP, Drug Form: INJ, 02/11/2012 02/28/2012 Discontinued Flush PRN, PRN Line Flush, Start date: 02/11/12 14:30:00, Duration: 30 day, Stop date: 03/12/12 14:29:00 Dilaudid 0.5 mg, Route: IVP, ONCE, Start 02/24/2012 012 Completed date: 02/24/12 15:31:00, Stop date: 02/24/12 15:31:00 Zyvox 600 mg, 1 tab, Route: PO, Drug 02/27/2012 02/28/20 12 Discontinued form: TAB, BID, Start date: 02/27/12 21:00:00, Duration: 30 day, Stop date: 03/28/12 9:00:00 Dilaudid 8 mg, 4 tab, Route: PO, Drug form: 02/17/201202/01 Completed TAB, ONCE, Start date: 02/17/12 3:31:00, Stop date: 02/17/12 3:31:00 Dilaudid 8 mg, 4 tab, Route: PO, Drug form: 02/14/201202/01 Discontinued TAB, Q6H, Start date: 02/14/12 12:00:00, Duration: 30 day, Stop date: 03/15/12 9:00:00 Xanax Substitution Allowed 02/11/2012 Ordered Soma Substitution Allowed 02/11/2012 Ordered Lortab 10/500 oral Substitution Allowed, Soft Stop 02/11/2012 Ordered tablet Vital Signs Most recent to oldest [Reference Range]: 1 2 3 Height 182.88 cm (02/11/2012 20:48:00) 182.88 cm (02/11/2012 20:33:00) Temperature Oral [96.4-99.1 DegF] 97.4 DegF (02/28/2012 11:40:00) 97.1 DegF (02/28/2012 07:48:00) 97.6 DegF (02/28/2012 04:15:00) Systolic Blood Pressure [90-140 mmHg] 125 mmHg (02/28/2012 11:40:00) 123 mmHg (02/28/2012 07:48:00) 126 mmHg (02/28/2012 04:15:00) Diastolic Blood Pressure [60-90 mmHg] 73 mmHg (02/28/2012 11:40:00) 80 mmHg (02/28/2012 07:48:00) 77 mmHg (02/28/2012 04:15:00) Respiratory Rate [14-20 BRMIN] 19 BRMIN (02/28/2012 11:30:00) 20 BRMIN (02/28/2012 07:48:00) 20 BRMIN (02/28/2012 04:15:00) Peripheral Pulse Rate [60-100 bpm] 69 bpm (02/28/2012 11:40:00) 73 bpm (02/28/2012 07:48:00) 79 bpm (02/28/2012 04:15:00) Weight 57.000 kg (02/11/2012 20:48:00) 57.000 kg (02/11/2012 20:33:00) 61.364 kg (02/11/2012 12:56:00) Results URINALYSIS Most recent to oldest [Reference Range]: 1 2 3 UA Turbidity [Clear] Slight Cloudy (02/11/2012 16:03:00) UA Color [Yellow] Yellow *NA* (02/11/2012 16:03:00) UA pH [5.0-8.0] 6.5 (02/11/2012 16:03:00) UA Spec Grav [<=1.030] 1.020 (02/11/2012 16:03:00) UA Glucose [Negative] Negative (02/11/2012 16:03:00) UA Blood [Negative] Large *ABN* (02/11/2012 16:03:00) UA Ketones [Negative] Negative *NA* (02/11/2012 16:03:00) UA Protein [Negative mg/dL] 100 mg/dL *ABN* (02/11/2012 16:03:00) UA Urobilinogen [0.1-1.0 EU/dL] 0.2 EU/dL (02/11/2012 16:03:00) UA Bili [Negative] Negative *NA* (02/11/2012 16:03:00) UA Leuk Est [Negative] Large *ABN* (02/11/2012 16:03:00) UA Nitrite [Negative] Positive *ABN* (02/11/2012 16:03:00) UA WBC [None Seen /HPF] 21-50 /HPF *ABN* (02/11/2012 16:03:00) UA RBC [0-2 /HPF] 11-20 /HPF *ABN* (02/11/2012 16:03:00) UA Bacteria [None Seen /HPF] Many /HPF (02/11/2012 16:03:00) UA Sq Epi [Few /LPF] Occasional /LPF (02/11/2012 16:03:00) UA Amorph Michelle [None Seen /HPF] Few /HPF *ABN* (02/11/2012 16:03:00) Micro? Performed (02/11/2012 16:03:00) CHEMISTRY Most recent to oldest [Reference Range]: 1 2 3 Sodium Lvl [135-145 mEq/L] 143 mEq/L (02/22/2012 05:00:00) 141 mEq/L (02/17/2012 06:00:00) 138 mEq/L (02/11/2012 15:46:00) Potassium Lvl [3.5-5.1 mEq/L] 4.0 mEq/L (02/22/2012 05:00:00) 4.2 mEq/L (02/17/2012 06:00:00) 3.7 mEq/L (02/11/2012 15:46:00) Chloride Lvl [95-109 mEq/L] 107 mEq/L (02/22/2012 05:00:00) 103 mEq/L (02/17/2012 06:00:00) 104 mEq/L (02/11/2012 15:46:00) CO2 [24-32 mEq/L] 28 mEq/L (02/22/2012 05:00:00) 31 mEq/L (02/17/2012 06:00:00) 25 mEq/L (02/11/2012 15:46:00) AGAP [10.0-20.0 mEq/L] 12.0 mEq/L (02/22/2012 05:00:00) 11.2 mEq/L (02/17/2012 06:00:00) 12.7 mEq/L (02/11/2012 15:46:00) Creatinine Lvl [0.5-1.4 mg/dL] 0.7 mg/dL (02/22/2012 05:00:00) 0.6 mg/dL (02/17/2012 06:00:00) 0.7 mg/dL (02/11/2012 15:46:00) BUN [7-22 mg/dL] 15 mg/dL (02/22/2012 05:00:00) 16 mg/dL (02/17/2012 06:00:00) 11 mg/dL (02/11/2012 15:46:00) B/C Ratio [6-25] 27 *HI* (02/17/2012 06:00:00) Glucose Lvl [70-99 mg/dL] 91 mg/dL 1 (02/22/2012 05:00:00) 90 mg/dL 2 (02/17/2012 06:00:00) 81 mg/dL 3 (02/11/2012 15:46:00) Total Protein [6.4-8.4 g/dL] 6.2 g/dL *LOW* (02/17/2012 06:00:00) Albumin Lvl [3.5-5.0 g/dL] 2.9 g/dL *LOW* (02/17/2012 06:00:00) Globulin [2.0-4.0 g/dL] 3.3 g/dL (02/17/2012 06:00:00) A/G Ratio [0.7-1.6] 0.9 (02/17/2012 06:00:00) Calcium Lvl [8.5-10.5 mg/dL] 8.8 mg/dL (02/22/2012 05:00:00) 8.8 mg/dL (02/17/2012 06:00:00) 9.3 mg/dL (02/11/2012 15:46:00) ALT [0-65 U/L] 57 U/L (02/17/2012 06:00:00) AST [0-37 U/L] 32 U/L (02/17/2012 06:00:00) Alk Phos [39-136 U/L] 93 U/L (02/17/2012 06:00:00) Bili Total [0.2-1.3 mg/dL] 0.1 mg/dL *LOW* (02/17/2012 06:00:00) 1Interpretive Data: Adult reference range values reflect the clinical guidelines of the [place] [employer]. 2Interpretive Data: Adult reference range values reflect the clinical guidelines of the [place] [employer]. 3Interpretive Data: Adult reference range values reflect the clinical guidelines of the [place] [employer]. HEMATOLOGY Most recent to oldest [Reference Range]: 1 2 3 WBC [3.7-10.4 K/CMM] 6.7 K/CMM (02/22/2012 05:00:00) 5.9 K/CMM (02/17/2012 06:00:00) 13.8 K/CMM *HI* (02/11/2012 15:46:00) RBC [4.70-6.10 M/CMM] 3.74 M/CMM *LOW* (02/22/2012 05:00:00) 3.74 M/CMM *LOW* (02/17/2012 06:00:00) 4.24 M/CMM *LOW* (02/11/2012 15:46:00) Hgb [14.0-18.0 g/dL] 12.0 g/dL *LOW* (02/22/2012 05:00:00) 12.1 g/dL *LOW* (02/17/2012 06:00:00) 13.3 g/dL *LOW* (02/11/2012 15:46:00) Hct [42.0-54.0 %] 34.8 % *LOW* (02/22/2012 05:00:00) 34.5 % *LOW* (02/17/2012 06:00:00) 39.5 % *LOW* (02/11/2012 15:46:00) MCV [80.0-94.0 fL] 93.0 fL (02/22/2012 05:00:00) 92.2 fL (02/17/2012 06:00:00) 93.0 fL (02/11/2012 15:46:00) MCH [27.0-31.0 pg] 32.2 pg *HI* (02/22/2012 05:00:00) 32.4 pg *HI* (02/17/2012 06:00:00) 31.5 pg *HI* (02/11/2012 15:46:00) MCHC [32.0-36.0 g/dL] 34.6 g/dL (02/22/2012 05:00:00) 35.1 g/dL (02/17/2012 06:00:00) 33.8 g/dL (02/11/2012 15:46:00) RDW [11.5-14.5 %] 15.3 % *HI* (02/22/2012 05:00:00) 14.1 % (02/17/2012 06:00:00) 15.1 % *HI* (02/11/2012 15:46:00) Platelet [133-450 K/CMM] 231 K/CMM (02/22/2012 05:00:00) 210 K/CMM (02/17/2012 06:00:00) 209 K/CMM (02/11/2012 15:46:00) MPV [7.4-10.4 fL] 7.9 fL (02/22/2012 05:00:00) 8.1 fL (02/17/2012 06:00:00) 8.2 fL (02/11/2012 15:46:00) Segs [45.0-75.0 %] 43.9 % *LOW* (02/22/2012 05:00:00) 34.8 % *LOW* (02/17/2012 06:00:00) 83.9 % *HI* (02/11/2012 15:46:00) Lymphocytes [20.0-40.0 %] 46.1 % *HI* (02/22/2012 05:00:00) 50.7 % *HI* (02/17/2012 06:00:00) 11.0 % *LOW* (02/11/2012 15:46:00) Monocytes [2.0-12.0 %] 7.3 % (02/22/2012 05:00:00) 9.0 % (02/17/2012 06:00:00) 4.1 % (02/11/2012 15:46:00) Eosinophils [0.0-4.0 %] 2.2 % (02/22/2012 05:00:00) 4.8 % *HI* (02/17/2012 06:00:00) 0.8 % (02/11/2012 15:46:00) Basophils [0.0-1.0 %] 0.5 % (02/22/2012 05:00:00) 0.7 % (02/17/2012 06:00:00) 0.2 % (02/11/2012 15:46:00) Segs-Bands # [1.5-8.1 K/CMM] 2.9 K/CMM (02/22/2012 05:00:00) 2.0 K/CMM (02/17/2012 06:00:00) 11.6 K/CMM *HI* (02/11/2012 15:46:00) Lymphocytes # [1.0-5.5 K/CMM] 3.1 K/CMM (02/22/2012 05:00:00) 3.0 K/CMM (02/17/2012 06:00:00) 1.5 K/CMM (02/11/2012 15:46:00) Monocytes # [0.0-0.8 K/CMM] 0.5 K/CMM (02/22/2012 05:00:00) 0.5 K/CMM (02/17/2012 06:00:00) 0.6 K/CMM (02/11/2012 15:46:00) Eosinophils # [0.0-0.5 K/CMM] 0.1 K/CMM (02/22/2012 05:00:00) 0.3 K/CMM (02/17/2012 06:00:00) 0.1 K/CMM (02/11/2012 15:46:00) Basophils # [0.0-0.2 K/CMM] 0.0 K/CMM (02/22/2012 05:00:00) 0.0 K/CMM (02/17/2012 06:00:00) 0.0 K/CMM (02/11/2012 15:46:00) Microbiology Reports PROCEDURE:Culture: Urine STATUS: Auth (Verified) BODY SITE: Left Kidney COLLECTED DATE/TIME: 02/24/2012 14:16:00 SOURCE: U NEPH FREE TEXT SOURCE: FINAL REPORTS Final Report 1000-10,000/cfu/ml Enterococcus Species Refer To Culture # [id number] (02/25/2012) For Susceptibility Results PRELIMINARY REPORTS Preliminary Report No Growth; Holding Preliminary Report 1000-10,000/cfu/ml Enterococcus Species PROCEDURE:Culture: Urine STATUS: Auth (Verified) BODY SITE: COLLECTED DATE/TIME: 02/24/2012 14:15:00 SOURCE: U Bladder FREE TEXT SOURCE: FINAL REPORTS Final Report 1000-10,000/cfu/ml Vancomycin Resistant Enterococcus Significant Findings Called To: Edwin Toribio RN, E6C At: 02/27/2012 08:09 Called By: shasta Read Back Ok PRELIMINARY REPORTS Preliminary Report 1000-10,000/cfu/ml Enterococcus Species Preliminary Report No Growth; Holding Preliminary Report 50,000 - 100,000 CFU/mL Enterococcus Species SUSCEPTIBILITY REPORT VRE Antibiotic INTERP. VDIL Ampicillin R Ciprofloxacin R Linezolid S Nitrofurantoin R Tetracycline R Vancomycin R PROCEDURE:Culture: Urine STATUS: Auth (Verified) BODY SITE: COLLECTED DATE/TIME: 02/11/2012 16:03:00 SOURCE: Urine, Clean Catch FREE TEXT SOURCE: FINAL REPORTS Final Report >100,000 CFU/mL Escherichia coli This Organism Produces An Extended Spectrum Beta Lactamase (ESBL). Multi-drug Resistant Organism . Significant Findings Called To: amna on 6th floor for mdro/esbl+ At: 02/15/2012 08:01:40 Called By: paul Read Back Ok . 10,000 - 50,000 CFU/mL Group B Streptococcus No susceptibility performed since these organisms are predictably susceptible to penicillin. If patient is penicillin allergic or susceptibility testing for additional antibiotics is clinically warranted please call the laboratory. . 10,000 - 50,000 CFU/mL Skin Joanie PRELIMINARY REPORTS Preliminary Report >100,000 CFU/mL Gram Negative Rods Identification And Sensitivity To Follow . 10,000 - 50,000 CFU/mL Skin Joanie . Further Testing In Progress Preliminary Report >100,000 CFU/mL Gram Negative Rods Identification And Sensitivity To Follow . 10,000 - 50,000 CFU/mL Skin Joanie . 10,000 - 50,000 CFU/mL Group B Streptococcus No susceptibility performed since these organisms are predictably susceptible to penicillin. If patient is penicillin allergic or susceptibility testing for additional antibiotics is clinically warranted please call the laboratory. Preliminary Report >100,000 CFU/mL Gram Negative Rods Identification And Sensitivity To Follow SUSCEPTIBILITY REPORT PA Antibiotic INTERP NHUNG Amikacin S <=8 Cefepime S 8 Ceftazidime S 8 Ciprofloxacin R >2 Gentamicin S <=2 Meropenem I 8 Piperacillin/Tazobactam S 16/4 Tobramycin S <=2 EC Antibiotic INTERP NHUNG Amikacin S <=8 Ampicillin R >16 Ampicillin/Sulbactam R 16/8 Aztreonam R <=2 Cefepime R 4 Ceftriaxone R >32 Ciprofloxacin R >2 ESBL Confirmation + POS Ertapenem S <=0.5 Gentamicin S <=2 Levofloxacin R >4 Meropenem S <=1 Nitrofurantoin S <=16 Piperacillin/Tazobactam R Tetracycline R >8 Tobramycin S <=2 Trimethoprim/Sulfamethoxazole R >2/38
--- OUTSIDE RECORDS SUMMARY | 2020-03-18 10:20 | XMS REPORT | Summary of Care ---
Author Author [facility] Organization [facility] Address Unknown Phone Unavailable Encounter MOJGAN Jacques(AMARI) [id number] Date(s): 09/11/15 - 09/12/15 [facility] [address] [place] [address]- [phone] Final: Illness, unspecified Discharge Disposition: Against Medical Advise Attending Physician: Litzy Ac MD Admitting Physician: Litzy Ac MD Referring Physician: Litzy Ac MD Vital Signs 1 2 3 Most recent to oldest [Reference Range]: 182.88 cm (09/11/15 10:41 PM) Height 65.909 kg (09/11/15 8:00 PM) Current Weight 97.8 DegF (09/12/15 8:00 AM) 97.5 DegF (09/12/15 12:01 AM) 98.9 DegF (09/11/15 8:00 PM) Temperature Oral [96.4-99.1 DegF] 129/87 mmHg (09/12/15 8:00 AM) 117/82 mmHg (09/12/15 12:01 AM) 123/78 mmHg (09/11/15 8:00 PM) Blood Pressure [90-140/60-90 mmHg] 18 BRMIN (09/12/15 8:00 AM) 20 BRMIN (09/12/15 12:01 AM) 24 BRMIN *HI* (09/11/15 8:00 PM) Respiratory Rate [14-20 BRMIN] 108 bpm *HI* (09/12/15 8:00 AM) 128 bpm *HI* (09/12/15 12:01 AM) 134 bpm *HI* (09/11/15 8:00 PM) Peripheral Pulse Rate [60-100 bpm] 63.6 kg (09/12/15 9:00 AM) 63.636 kg (09/11/15 10:41 PM) Weight 19.03 m2 (09/11/15 10:41 PM) Body Mass Index Problem List Condition [...] naproxen Active NKFA Active traMADol Active Medications acetaminophen-hydrocodone 325 mg-5 mg oral tablet 2 tab, Route: PO, Drug Form: TAB, Dosing Weight 65.909, kg, Q4H, PRN Pain Score 7-10, Start date: 09/11/15 19:59:00, Duration: 30 day, Stop date: 10/11/15 19:58 :00 Notes: (Same as: Reynolds 325/5) Do not exceed 4gm/day of acetaminophen. Start Date: 09/11/15 Stop Date: 09/12/15 Status: Discontinued amitriptyline 100 mg, 2 tab, Route: PO, Drug form: TAB, Bedtime, Start date: 09/11/15 21:00:00 , Duration: 30 day, Stop date: 10/10/15 21:00:00 Notes: (Same as: Elavil) Start Date: 09/11/15 Stop Date: 09/12/15 Status: Discontinued baclofen 10 mg, 1 tab, Route: PO, Drug form: TAB, Q6H, Dosing Weight 65.909, kg, Start da te: 09/12/15 0:00:00, Duration: 30 day, Stop date: 10/11/15 18:00:00 Notes: (Same As: Lioresal) Start Date: 09/12/15 Stop Date: 09/12/15 Status: Discontinued BuSpar 5 mg, 1 tab, Route: PO, Drug form: TAB, TID, Dosing Weight 65.909, kg, Start river e: 09/12/15 9:00:00, Duration: 30 day, Stop date: 10/11/15 17:00:00 Notes: (Same As: BuSpar) Start Date: 09/12/15 Stop Date: 09/12/15 Status: Discontinued Diflucan 200 mg, 1 tab, Route: PO, Drug form: TAB, Q24H, Start date: 09/12/15 16:00:00, D uration: 30 day, Stop date: 10/11/15 16:00:00 Notes: (Same as: Diflucan) Start Date: 09/12/15 Stop Date: 09/12/15 Status: Discontinued docusate 100 mg, 1 cap, Route: PO, Drug form: CAP, BID, Dosing Weight 63.636, kg, PRN Con stipation, Start date: 09/12/15 6:57:00, Duration: 30 day, Stop date: 10/12/15 6 :56:00 Notes: (Same as: Colace) (Do Not Crush) Start Date: 09/12/15 Stop Date: 09/12/15 Status: Discontinued docusate sodium 50 mg oral capsule 50 mg, 1 cap, Route: PO, Drug form: CAP, BID, PRN Constipation, Start date: 03/19 20:08:00, Duration: 30 day, Stop date: 10/11/15 20:07:00 Notes: (Same as: Colace) (Do Not Crush) Start Date: 09/11/15 Stop Date: 09/12/15 Status: Discontinued Lovenox 40 mg, 0.4 mL, Route: SUB-Q, Drug form: INJ, Q24H, Start date: 09/12/15 9:00:00, Duration: 30 day, Stop date: 10/11/15 9:00:00 Notes: (Same as: Lovenox) Start Date: 09/12/15 Stop Date: 09/12/15 Status: Discontinued meropenem + Sodium Chloride 0.9% IV 100 mL 500 mg, Route: IVPB, ABXQ6H, Dosing Weight 65.909, kg, CrCL > = 50ml/min, Extended infusion, infuse over 3 hours, Start date: 09/11/15 23:00:00, Duration: 30 day, Stop date: 10/11/15 17:00:00 Notes: Same as Merrem MEDICATION WASTE Product Size: 500 mgProduct Wast ed: ___ mg Start Date: 09/11/15 Stop Date: 09/12/15 Status: Discontinued multivitamin 1 tab, Route: PO, Drug Form: TAB, Daily, Start date: 09/12/15 9:00:00, Duration: 30 day, Stop date: 10/11/15 9:00:00 Notes: (Same as:Sarah)WASTE: F/P - Black; E - Municipal Trash Bin Take with kameron d. Start Date: 09/12/15 Stop Date: 09/12/15 Status: Discontinued ondansetron 4 mg, 2 mL, Route: IVP, Drug form: INJ, Q8H, Dosing Weight 63.636, kg, PRN Nause a & Vomiting, Start date: 09/12/15 6:57:00, Duration: 30 day, Stop date: 10/12/15 6:56:00 Notes: (Same as: Klaus) MEDICATION WASTE Product Size: 4 mgProduct Was reinaldo: ___ mg Start Date: 09/12/15 Stop Date: 09/12/15 Status: Discontinued Protonix 40 mg, 1 tab, Route: PO, Drug form: ECTAB, Before Dinner, Start date: 09/12/15 1 6:30:00, Duration: 30 day, Stop date: 10/11/15 16:30:00 Notes: Tablet should not be chewed or crushed.(Same as: Protonix) Start Date: 09/12/15 Stop Date: 09/12/15 Status: Discontinued Remeron 30 mg, 1 tab, Route: PO, Drug form: TAB, Bedtime, Start date: 09/11/15 21:00:00, Duration: 30 day, Stop date: 10/10/15 21:00:00 Notes: (Same as:Remeron) Start Date: 09/11/15 Stop Date: 09/12/15 Status: Discontinued Santyl 1 appl, Route: TOP, Daily, Drug form: OINT, Start date: 09/12/15 9:00:00, Durati on: 30 day, Stop date: 10/11/15 9:00:00 Notes: (Same As: Santyl) Start Date: 09/12/15 Stop Date: 09/12/15 Status: Discontinued Senokot 8.6 mg, 1 tab, Route: PO, Drug form: TAB, BID, PRN Constipation, Start date: 03/19 20:08:00, Duration: 30 day, Stop date: 10/11/15 20:07:00 Notes: (Same as: Senokot) Start Date: 09/11/15 Stop Date: 09/12/15 Status: Discontinued Xanax 0.5 mg, 1 tab, Route: PO, Drug form: TAB, Q12H, PRN Anxiety, Start date: 6 19:57:00, Duration: 30 day, Stop date: 10/11/15 19:56:00 Notes: With food or milk(Same as: Xanax) Start Date: 09/11/15 Stop Date: 09/12/15 Status: Discontinued Zyvox 600 mg, 1 tab, Route: PO, Drug form: TAB, Q12H, Start date: 09/11/15 21:00:00, D uration: 30 day, Stop date: 10/11/15 9:00:00 Notes: Protect from light. (Same as: Zyvox) Start Date: 09/11/15 Stop Date: 09/12/15 Status: Discontinued Results No data available for this section Immunizations Vaccine Date Refusal Reason influenza virus [...] Alcohol Current, Type Beer. Smoking Status Current every day smoker; L marlo with someone who smokes; Cigarette Smoking Last 365 Days Yes; Reg Smoking Cessatio n Counseling Yes Assessment and Plan No data available for this section
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
--- OUTSIDE RECORDS SUMMARY | 2020-03-18 10:20 | XMS REPORT | Summary of Care ---
Author Author [facility] Organization [facility] Address Unknown Phone Unavailable Encounter HQ Georgie(AMARI) [id number] Date(s): 09/06/15 - 09/11/15 [facility] [address] [place] [address]- [phone] Discharge Disposition: Acute Care Attending Physician: Vishnu Fox MD Admitting Physician: Vishun Fox MD Vital Signs 1 2 3 Most recent to oldest [Reference Range]: 182.88 cm (09/07/15 5:10 AM) 182.88 cm (09/06/15 11:42 PM) Height 97.5 DegF (09/11/15 4:21 PM) 97.3 DegF (09/11/15 12:22 PM) 97.3 DegF (09/11/15 9:45 AM) Temperature Oral [96.4-99.1 DegF] 132/80 mmHg (09/11/15 4:21 PM) 124/85 mmHg (09/11/15 12:22 PM) 121/77 mmHg (09/11/15 9:45 AM) Blood Pressure [90-140/60-90 mmHg] 18 BRMIN (09/11/15 4:21 PM) 18 BRMIN (09/11/15 12:22 PM) 16 BRMIN (09/11/15 9:45 AM) Respiratory Rate [14-20 BRMIN] 126 bpm *HI* (09/11/15 4:21 PM) 84 bpm (09/11/15 12:22 PM) 91 bpm (09/11/15 9:45 AM) Peripheral Pulse Rate [60-100 bpm] 65.909 kg (09/07/15 5:10 AM) 65.909 kg (09/06/15 11:42 PM) Weight 19.71 m2 (09/07/15 5:10 AM) 19.71 m2 (09/06/15 11:42 PM) Body Mass Index Problem List Condition [...] Acinetobacter collected from urine 4Problem added by [employer]. 5Ecoli ESBL isolated from urine 08/08/2015 6SACRUM, 05/27/2015 7URINE, 06/25/2014 810-13-12 E. COLI + ESBL: left & right foot wnd 9MDRO, URINE, 02/11/2012 10MDRO, URINE, 11/06/2011 11Problem added by [employer]. 12R. klebsiella pneumon isolated from l [...] Active NKFA Active traMADol Active Medications acetaminophen 325 mg, 1 tab, Route: PO, Drug form: TAB, Q4H, Dosing Weight 65.909, kg, PRN Maxwell n Score 4-6, Start date: 09/07/15 5:42:00, Duration: 30 day, Stop date: 10/07/15 5:41:00 Notes: Do not exceed 4 gm/day. (Same as: Tylenol) Start Date: 09/07/15 Stop Date: 09/11/15 Status: Discontinued acetaminophen-hydrocodone 325 mg-5 mg oral tablet 2 tab, PO, Q4H, PRN Pain Score 7-10, 0 Refill(s) Start Date: 09/11/15 Status: Ordered acetaminophen-hydrocodone 325 mg-5 mg oral tablet 2 tab, Route: PO, Drug Form: TAB, Dosing Weight 65.909, kg, Q4H, PRN Pain Score 7-10, Start date: 09/07/15 5:42:00, Duration: 30 day, Stop date: 10/07/15 5:41:0 0 Notes: (Same as: [place] 325/5) Do not exceed 4gm/day of acetaminophen. Start Date: 09/07/15 Stop Date: 09/11/15 Status: Discontinued ALPRAZOLam 0.5 mg oral tablet 0.5 mg = 1 tab, PO, Q12H, PRN Anxiety, 0 Refill(s) Start Date: 09/11/15 Stop Date: 09/13/15 Status: Discontinued amitriptyline 100 mg, 1 tab, Route: PO, Drug form: TAB, Bedtime, Dosing Weight 65.909, kg, Sta rt date: 09/11/15 21:00:00, Duration: 30 day, Stop date: 10/10/15 21:00:00 Notes: (Same as: Elavil) Start Date: 09/11/15 Stop Date: 09/11/15 Status: Canceled baclofen 10 mg, 1 tab, Route: PO, Drug form: TAB, Q6H, Dosing Weight 65.909, kg, Start da te: 09/11/15 18:00:00, Duration: 30 day, Stop date: 10/11/15 12:00:00 Notes: (Same As: Lioresal) Start Date: 09/11/15 Stop Date: 09/11/15 Status: Discontinued busPIRone 5 mg, 1 tab, Route: PO, Drug form: TAB, TID, Dosing Weight 65.909, kg, Start river e: 09/11/15 17:00:00, Duration: 30 day, Stop date: 10/11/15 13:00:00 Notes: (Same As: BuSpar) Start Date: 09/11/15 Stop Date: 09/11/15 Status: Discontinued docusate 100 mg, 1 cap, Route: PO, Drug form: CAP, BID, Dosing Weight 65.909, kg, PRN Con stipation, Start date: 09/07/15 5:42:00, Duration: 30 day, Stop date: 10/07/15 5 :41:00 Notes: (Same as: Colace) (Do Not Crush) Start Date: 09/07/15 Stop Date: 09/11/15 Status: Discontinued docusate sodium 50 mg oral capsule 50 mg, 1 cap, Route: PO, Drug form: CAP, BID, PRN Constipation, Start date: 03/19 15:58:00, Duration: 30 day, Stop date: 10/11/15 15:57:00 Notes: (Same as: Colace) (Do Not Crush) Start Date: 09/11/15 Stop Date: 09/11/15 Status: Discontinued docusate-senna 50 mg-8.6 mg oral tablet 1 tab, Route: PO, Drug Form: TAB, Dosing Weight 65.909, kg, BID, PRN Constipatio n, Start date: 09/11/15 15:53:00, Duration: 30 day, Stop date: 10/11/15 15:52:00 Start Date: 09/11/15 Stop Date: 09/11/15 Status: Deleted enoxaparin 40 mg, 0.4 mL, Route: SUB-Q, Drug form: INJ, [id number], Dosing Weight 65.909, kg, Start date: 09/08/15 9:00:00, Duration: 30 day, Stop date: 10/07/15 9:00:00 Notes: (Same as: Lovenox) Start Date: 09/08/15 Stop Date: 09/11/15 Status: Discontinued Flagyl 500 mg, 1 tab, Route: PO, Drug form: TAB, [id number], Dosing Weight 65.909, kg, Star t date: 09/07/15 23:00:00, Duration: 30 day, Stop date: 10/07/15 15:00:00 Notes: (Same as: Flagyl) Take with food/ avoid alcohol Start Date: 09/07/15 Stop Date: 09/09/15 Status: Discontinued fluconazole 200 mg, 1 tab, Route: PO, Drug form: TAB, [id number], Dosing Weight 65.909, kg, Sta rt date: 09/11/15 16:00:00, Duration: 30 day, Stop date: 10/10/15 16:00:00 Notes: (Same as: Diflucan) Start Date: 09/11/15 Stop Date: 09/11/15 Status: Discontinued linezolid 600 mg, 300 mL, Route: IV, Drug form: SOLN, Q12H, Dosing Weight 65.909, kg, Star t date: 09/07/15 9:00:00, Duration: 30 day, Stop date: 10/06/15 21:00:00 Notes: (Same as: Zyvox) Start Date: 09/07/15 Stop Date: 09/10/15 Status: Discontinued linezolid 600 mg oral tablet 600 mg = 1 tab, PO, [id number], 0 Refill(s) Start Date: 09/11/15 Status: Ordered meropenem + Sodium Chloride 0.9% IV 100 mL 500 mg, Route: IV, Drug form: PDR/INJ, Q8H, Dosing Weight 65.909, kg, Start date : 09/07/15 8:00:00, Duration: 30 day, Stop date: 10/07/15 0:00:00 Notes: Same as Merrem MEDICATION WASTE Product Size: 500 mgProduct Wast ed: ___ mg Start Date: 09/07/15 Stop Date: 09/07/15 Status: Discontinued meropenem + Sodium Chloride 0.9% IV 100 mL 500 mg, Route: IVPB, [id number], Dosing Weight 65.909, kg, CrCL > = 50ml/min, Extended infusion, infuse over 3 hours, Start date: 09/07/15 23:00:00, Duration: 30 day, Stop date: 10/07/15 17:00:00 Notes: Same as Merrem MEDICATION WASTE Product Size: 500 mgProduct Wast ed: ___ mg Start Date: 09/07/15 Stop Date: 09/11/15 Status: Discontinued meropenem 500 mg intravenous injection 500 mg, IV, Q6H, X 10 day, # 28 bag, 0 Refill(s) Start Date: 09/11/15 Stop Date: 09/13/15 Status: Completed mirtazapine 30 mg oral tablet 30 mg = 1 tab, PO, Bedtime, 0 Refill(s) Start Date: 09/11/15 Status: Ordered morphine Sulfate 4 mg, 1 mL, Route: IVP, Drug form: INJ, Q4H, Dosing Weight 65.909, kg, PRN Pain Score 7-10, Start date: 09/08/15 7:35:00, Duration: 30 day, Stop date: 10/08/15 7:34:00 Notes: (Same as:MORPhine Sulfate) Start Date: 09/08/15 Stop Date: 09/11/15 Status: Discontinued morphine Sulfate 4 mg, 1 mL, Route: IVP, Drug form: INJ, Q3H, Dosing Weight 65.909, kg, PRN Pain Score 7-10, Start date: 09/07/15 5:42:00, Duration: 30 day, Stop date: 10/07/15 5:41:00 Notes: (Same as:MORPhine Sulfate) Start Date: 09/07/15 Stop Date: 09/08/15 Status: Discontinued Nicorette 2 mg, 1 ea, Route: CHEW, Drug form: GUM, BID, Start date: 09/10/15 17:00:00, Dur ation: 30 day, Stop date: 10/10/15 9:00:00 Notes: Non-Formulary DrugWASTE: F/P - P Waste Black; E - P Waste Black (Same as : Nicorette) Start Date: 09/10/15 Stop Date: 09/11/15 Status: Discontinued Nicorette 4 mg gum Nicorette 4 mg gum, 4 mg, Drug form: MISC, Route: CHEW, BID, 09/11/15 3:00:00, D uration: 30 day, Stop date: 10/10/15 17:00:00 Start Date: 09/11/15 Stop Date: 09/11/15 Status: Discontinued nicotine 21 mg, 1 patch, Route: TOP, Drug form: ERFILM, Daily, Dosing Weight 65.909, kg, Start date: 09/10/15 9:00:00, Duration: 30 day, Stop date: 10/09/15 9:00:00 Notes: (Same as: Habitrol)"Remove old patch before application of new patch"WAST E: F/P - P Waste Black; E - P Waste Black Start Date: 09/10/15 Stop Date: 09/10/15 Status: Discontinued [place] 10/325 oral tablet 1 tab, Route: PO, Drug Form: TAB, Dosing Weight 65.909, kg, ONCE, PRN Pain Score 1-3, Start date: 09/07/15 3:44:00, Stop date: 10/07/15 3:43:00 Start Date: 09/07/15 Stop Date: 09/07/15 Status: Completed normal saline 0.9% IV 2,000 mL 2,000 mL, Rate: 2,000 ml/hr, Infuse over: 1 hr, Route: IV, Dosing Weight 65.909 kg, Total Volume: 2,000, Priority: STAT, Start date: 09/07/15 0:08:00, Duration: 1 doses or times, Stop date: 09/07/15 1:07:00 Start Date: 09/07/15 Stop Date: 09/07/15 Status: Completed ondansetron 4 mg, 2 mL, Route: IVP, Drug form: INJ, Q6H, Dosing Weight 65.909, kg, PRN Nause a & Vomiting, Start date: 09/07/15 5:42:00, Duration: 30 day, Stop date: 10/07/15 5:41:00 Notes: (Same as: Klaus) MEDICATION WASTE Product Size: 4 mgProduct Was reinaldo: ___ mg Start Date: 09/07/15 Stop Date: 09/11/15 Status: Discontinued pantoprazole 40 mg, 1 tab, Route: PO, Drug form: ECTAB, Before Dinner, Dosing Weight 65.909, kg, Start date: 09/11/15 16:30:00, Duration: 30 day, Stop date: 10/10/15 16:30:0 0 Notes: Tablet should not be chewed or crushed.(Same as: Protonix) Start Date: 09/11/15 Stop Date: 09/11/15 Status: Discontinued Remeron 30 mg, 1 tab, Route: PO, Drug form: TAB, Bedtime, Dosing Weight 65.909, kg, Star t date: 09/09/15 21:00:00, Duration: 30 day, Stop date: 10/08/15 21:00:00 Notes: (Same as:Remeron) Start Date: 09/09/15 Stop Date: 09/11/15 Status: Discontinued Saline Flush 0.9% 10 mL, Route: IVP, Drug Form: INJ, Dosing Weight 65.909, kg, PRN, PRN Line Flush , Start date: 09/07/15 0:07:00, Duration: 30 day, Stop date: 10/07/15 0:06:00 Notes: (Same as: BD Posiflush) Start Date: 09/07/15 Stop Date: 09/11/15 Status: Discontinued Senokot 8.6 mg, 1 tab, Route: PO, Drug form: TAB, BID, PRN Constipation, Start date: 03/19 15:59:00, Duration: 30 day, Stop date: 10/11/15 15:58:00 Notes: (Same as: Senokot) Start Date: 09/11/15 Stop Date: 09/11/15 Status: Discontinued Xanax 0.5 mg, 1 tab, Route: PO, Drug form: TAB, Q12H, PRN Anxiety, Start date: 6 16:02:00, Stop date: 10/07/15 16:01:00 Notes: With food or milk(Same as: Xanax) Start Date: 09/07/15 Stop Date: 09/11/15 Status: Discontinued Zyvox 600 mg, 1 tab, Route: PO, Drug form: TAB, [id number], Dosing Weight 65.909, kg, Sta rt date: 09/10/15 21:00:00, Duration: 30 day, Stop date: 10/10/15 9:00:00 Notes: Protect from light. (Same as: Zyvox) Start Date: 09/10/15 Stop Date: 09/11/15 Status: Discontinued Results ELECTROLYTES 1 2 3 Most recent to oldest [Reference Range]: 137 mEq/L (09/08/15 4:27 AM) 134 mEq/L *LOW* (09/07/15 12:25 AM) Sodium Lvl [135-145 mEq/L] 4.1 mEq/L (09/08/15 4:27 AM) 4.4 mEq/L (09/07/15 12:25 AM) Potassium Lvl [3.5-5.1 mEq/L] 102 mEq/L (09/08/15 4:27 AM) 101 mEq/L (09/07/15 12:25 AM) Chloride Lvl [95-109 mEq/L] 24 mEq/L (09/08/15 4:27 AM) 26 mEq/L (09/07/15 12:25 AM) CO2 [24-32 mEq/L] 15.1 mEq/L (09/08/15 4:27 AM) 11.4 mEq/L (09/07/15 12:25 AM) AGAP [10.0-20.0 mEq/L] CHEM PANEL 1 2 3 Most recent to oldest [Reference Range]: 1.00 mg/dL (09/08/15 4:27 AM) 1.15 mg/dL (09/07/15 12:25 AM) Creatinine Lvl [0.50-1.40 mg/dL] 101 mL/min/1.73m2 1 *NA* (09/08/15 4:27 AM) 85 mL/min/1.73m2 2 *NA* (09/07/15 12:25 AM) eGFR 16 mg/dL (09/08/15 4:27 AM) 27 mg/dL *HI* (09/07/15 12:25 AM) BUN [7-22 mg/dL] 23 (09/07/15 12:25 AM) B/C Ratio [6-25] 89 mg/dL (09/08/15 4:27 AM) 86 mg/dL (09/07/15 12:25 AM) Glucose Lvl [70-99 mg/dL] 9.7 g/dL *HI* (09/07/15 12:25 AM) Total Protein [6.4-8.4 g/dL] 2.7 g/dL *LOW* (09/07/15 12:25 AM) Albumin Lvl [3.5-5.0 g/dL] 7.0 g/dL *HI* (09/07/15 12:25 AM) Globulin [2.0-4.0 g/dL] 0.4 *LOW* (09/07/15 12:25 AM) A/G Ratio [0.7-1.6] 8.9 mg/dL (09/08/15 4:27 AM) 8.5 mg/dL (09/07/15 12:25 AM) Calcium Lvl [8.5-10.5 mg/dL] 40 unit/L (09/07/15 12:25 AM) ALT [0-65 unit/L] 28 unit/L (09/07/15 12:25 AM) AST [0-37 unit/L] 145 unit/L *HI* (09/07/15 12:25 AM) Alk Phos [39-136 unit/L] 0.3 mg/dL (09/07/15 12:25 AM) Bili Total [0.2-1.3 mg/dL] 2.6 mMol/L *HI* (09/07/15 12:25 AM) Lactic Acid Lvl [0.5-2.2 mMol/L] 0.19 ng/mL *HI* (09/07/15 12:25 AM) Procalcitonin Lvl [0.00-0.10 ng/mL] 1Result Comment: [...] 3 Most recent to oldest [Reference Range]: 185 unit/L (09/07/15 12:25 AM) Total CK [12-191 unit/L] 1.6 ng/mL (09/07/15 12:25 AM) CK MB [0.5-3.6 ng/mL] 0.9 (09/07/15 12:25 AM) CK MB Index [0.0-2.5] 0.03 ng/mL (09/07/15 12:25 AM) Troponin-I [0.00-0.40 ng/mL] DRUG SCREEN 1 2 3 Most recent to oldest [Reference Range]: Negative *NA* (09/08/15 12:53 AM) U Amph Scr [Negative] Negative *NA* (09/08/15 12:53 AM) U Chelsie Scr [Negative] Positive *ABN* (09/08/15 12:53 AM) U Benzodia Scr [Negative] Negative *NA* (09/08/15 12:53 AM) U Cocaine Scr [Negative] Positive *ABN* (09/08/15 12:53 AM) U Opiate Scr [Negative] Negative *NA* (09/08/15 12:53 AM) U Phencyc Scr [Negative] Positive *ABN* (09/08/15 12:53 AM) U Cannab Scr [Negative] See Note (09/08/15 12:53 AM) UDS Note URINE AND STOOL 1 2 3 Most recent to oldest [Reference Range]: Cloudy *ABN* (09/07/15 12:25 AM) UA Turbidity [Clear] Red *ABN* (09/07/15 12:25 AM) UA Color [Yellow] 6.0 (09/07/15 12:25 AM) UA pH [5.0-8.0] 1.010 (09/07/15 12:25 AM) UA Spec Grav [<=1.030] Negative (09/07/15 12:25 AM) UA Glucose [Negative] Large *ABN* (09/07/15 12:25 AM) UA Blood [Negative] Negative *NA* (09/07/15 12:25 AM) UA Ketones [Negative] 100 mg/dL *ABN* (09/07/15 12:25 AM) UA Protein [Negative mg/dL] 0.2 EU/dL (09/07/15 12:25 AM) UA Urobilinogen [0.1-1.0 EU/dL] Negative *NA* (09/07/15 12:25 AM) UA Bili [Negative] Moderate *ABN* (09/07/15 12:25 AM) UA Leuk Est [Negative] Positive *ABN* (09/07/15 12:25 AM) UA Nitrite [Negative] 3-5 /HPF (09/07/15 12:25 AM) UA WBC [None Seen /HPF] Packed *ABN* (09/07/15 12:25 AM) UA RBC [0-2] Few /HPF (09/07/15 12:25 AM) UA Bacteria [None Seen /HPF] None Seen (09/07/15 12:25 AM) UA Sq Epi [Few] None Seen (09/07/15 12:25 AM) UA Mucus [None Seen] HEMATOLOGY 1 2 3 Most recent to oldest [Reference Range]: 7.8 K/CMM (09/09/15 9:14 AM) 8.4 K/CMM (09/08/15 4:27 AM) 10.5 K/CMM *HI* (09/07/15 12:25 AM) WBC [3.7-10.4 K/CMM] 3.39 M/CMM *LOW* (09/09/15 9:14 AM) 2.86 M/CMM *LOW* (09/08/15 4:27 AM) 3.47 M/CMM *LOW* (09/07/15 12:25 AM) RBC [4.70-6.10 M/CMM] 9.4 g/dL *LOW* (09/09/15 9:14 AM) 8.1 g/dL *LOW* (09/08/15 4:27 AM) 9.6 g/dL *LOW* (09/07/15 12:25 AM) Hgb [14.0-18.0 g/dL] 28.7 % *LOW* (09/09/15 9:14 AM) 24.6 % *LOW* (09/08/15 4:27 AM) 29.0 % *LOW* (09/07/15 12:25 AM) Hct [42.0-54.0 %] 84.7 fL (09/09/15 9:14 AM) 85.9 fL (09/08/15 4:27 AM) 83.5 fL (09/07/15 12:25 AM) MCV [80.0-94.0 fL] 27.8 pg (09/09/15 9:14 AM) 28.3 pg (09/08/15 4:27 AM) 27.7 pg (09/07/15 12:25 AM) MCH [27.0-31.0 pg] 32.8 g/dL (09/09/15 9:14 AM) 32.9 g/dL (09/08/15 4:27 AM) 33.2 g/dL (09/07/15 12:25 AM) MCHC [32.0-36.0 g/dL] 19.7 % *HI* (09/09/15 9:14 AM) 18.4 % *HI* (09/08/15 4:27 AM) 18.2 % *HI* (09/07/15 12:25 AM) RDW [11.5-14.5 %] 381 K/CMM (09/09/15 9:14 AM) 285 K/CMM (09/08/15 4:27 AM) 335 K/CMM (09/07/15 12:25 AM) Platelet [133-450 K/CMM] 7.5 fL (09/09/15 9:14 AM) 7.8 fL (09/08/15 4:27 AM) 7.5 fL (09/07/15 12:25 AM) MPV [7.4-10.4 fL] 42.5 % *LOW* (09/09/15 9:14 AM) 44.4 % *LOW* (09/08/15 4:27 AM) 64.7 % (09/07/15 12:25 AM) Segs [45.0-75.0 %] 39.4 % (09/09/15 9:14 AM) 36.3 % (09/08/15 4:27 AM) 22.5 % (09/07/15 12:25 AM) Lymphocytes [20.0-40.0 %] 12.3 % *HI* (09/09/15 9:14 AM) 13.4 % *HI* (09/08/15 4:27 AM) 11.6 % (09/07/15 12:25 AM) Monocytes [2.0-12.0 %] 5.2 % *HI* (09/09/15 9:14 AM) 5.3 % *HI* (09/08/15 4:27 AM) 0.4 % (09/07/15 12:25 AM) Eosinophils [0.0-4.0 %] 0.6 % (09/09/15 9:14 AM) 0.6 % (09/08/15 4:27 AM) 0.8 % (09/07/15 12:25 AM) Basophils [0.0-1.0 %] 3.3 K/CMM (09/09/15 9:14 AM) 3.7 K/CMM (09/08/15 4:27 AM) 6.8 K/CMM (09/07/15 12:25 AM) Segs-Bands # [1.5-8.1 K/CMM] 3.1 K/CMM (09/09/15 9:14 AM) 3.0 K/CMM (09/08/15 4:27 AM) 2.4 K/CMM (09/07/15 12:25 AM) Lymphocytes # [1.0-5.5 K/CMM] 1.0 K/CMM *HI* (09/09/15 9:14 AM) 1.1 K/CMM *HI* (09/08/15 4:27 AM) 1.2 K/CMM *HI* (09/07/15 12:25 AM) Monocytes # [0.0-0.8 K/CMM] 0.4 K/CMM (09/09/15 9:14 AM) 0.4 K/CMM (09/08/15 4:27 AM) 0.0 K/CMM (09/07/15 12:25 AM) Eosinophils # [0.0-0.5 K/CMM] 0.0 K/CMM (09/09/15 9:14 AM) 0.1 K/CMM (09/07/15 12:25 AM) Basophils # [0.0-0.2 K/CMM] Normal (09/08/15 4:27 AM) RBC Morph Normal (09/08/15 4:27 AM) Plt Morph 14.9 seconds *HI* (09/07/15 12:25 AM) PT [12.0-14.7 seconds] 1.14 (09/07/15 12:25 AM) INR [0.85-1.17] 35.6 seconds (09/07/15 12:25 AM) PTT [22.9-35.8 seconds] Immunizations Vaccine Date [...]
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
--- OUTSIDE RECORDS SUMMARY | 2020-03-18 10:21 | XMS REPORT | Summary of Care ---
Author Author [facility] Organization [facility] Address Unknown Phone Unavailable Encounter MOJGAN Jacques(AMARI) [id number] Date(s): 08/24/15 - 09/05/15 [facility] [address] [place] [address]- Discharge Disposition: Against Medical Advise Attending Physician: Noe Slater MD Admitting Physician: Noe Slater MD Vital Signs 1 2 3 Most recent to oldest [Reference Range]: 182.88 cm (08/24/15 8:09 PM) 182.88 cm (08/24/15 8:04 PM) Height 98.0 DegF (09/05/15 7:35 PM) 97.7 DegF (09/05/15 12:32 PM) 98.5 DegF (09/05/15 7:48 AM) Temperature Oral [96.4-99.1 DegF] 103/70 mmHg (09/05/15 7:35 PM) 102/86 mmHg (09/05/15 12:32 PM) 108/67 mmHg (09/05/15 7:48 AM) Blood Pressure [90-140/60-90 mmHg] 22 BRMIN *HI* (09/05/15 7:35 PM) 18 BRMIN (09/05/15 12:32 PM) 20 BRMIN (09/05/15 7:48 AM) Respiratory Rate [14-20 BRMIN] 132 bpm *HI* (09/05/15 7:35 PM) 105 bpm *HI* (09/05/15 12:32 PM) 112 bpm *HI* (09/05/15 7:48 AM) Peripheral Pulse Rate [60-100 bpm] 65.909 kg (08/24/15 8:09 PM) 65.909 kg (08/24/15 8:04 PM) Weight 19.71 m2 (08/24/15 8:09 PM) 19.71 m2 (08/24/15 8:04 PM) Body Mass Index Problem List Condition [...] naproxen Active NKFA Active traMADol Active Medications Ambien 5 mg, 1 tab, Route: PO, Drug form: TAB, Bedtime, PRN Sleep, Start date: 08/24/15 23:46:00, Duration: 30 day, Stop date: 09/23/15 23:45:00 Notes: (Same As: Ambien) Start Date: 08/24/15 Stop Date: 09/05/15 Status: Discontinued amitriptyline 100 mg, 2 tab, Route: PO, Drug form: TAB, Bedtime, Start date: 08/24/15 23:05:00 , Duration: 30 day, Stop date: 09/23/15 21:00:00 Notes: (Same as: Elavil) Start Date: 08/24/15 Stop Date: 09/05/15 Status: Discontinued baclofen 10 mg, 1 tab, Route: PO, Drug form: TAB, Q6H, Start date: 08/25/15 0:00:00, Dura tion: 30 day, Stop date: 09/23/15 18:00:00 Notes: (Same As: Lioresal) Start Date: 08/25/15 Stop Date: 09/05/15 Status: Discontinued BuSpar 5 mg, 1 tab, Route: PO, Drug form: TAB, TID, Start date: 08/24/15 23:07:00, Dura tion: 30 day, Stop date: 09/23/15 17:00:00 Notes: (Same As: BuSpar) Start Date: 08/24/15 Stop Date: 09/05/15 Status: Discontinued Dextrose 50% in Water IV 50 mL, Route: IVP, Start date: 08/26/15 19:35:00, Duration: 30 day, Stop date: 0 09/25/15 19:34:00, PRN Blood Glucose Results Start Date: 08/26/15 Stop Date: 09/05/15 Status: Discontinued Diflucan 200 mg, 1 tab, Route: PO, Drug form: TAB, Daily, Start date: 08/25/15 16:00:00, Duration: 30 day, Stop date: 09/23/15 16:00:00 Notes: (Same as: Diflucan) Start Date: 08/25/15 Stop Date: 09/05/15 Status: Discontinued docusate sodium 50 mg oral capsule 50 mg, 1 cap, Route: PO, Drug form: CAP, BID, PRN Constipation, Start date: 08/05 09/19 0:14:00, Duration: 30 day, Stop date: 09/24/15 0:13:00 Notes: (Same as: Colace) (Do Not Crush) Start Date: 08/25/15 Stop Date: 09/05/15 Status: Discontinued Dolophine 5 mg, 1 tab, Route: PO, Drug form: TAB, Q8H, Start date: 08/25/15 2:00:00, Durat ion: 3 day, Stop date: 09/02/15 10:00:00 Notes: (Same as: Dolophine) Start Date: 08/25/15 Stop Date: 09/02/15 Status: Completed Duragesic-25 3 patch, Route: TOP, Drug Form: ERFILM, Q72H, Start date: 08/25/15 0:00:00, Dura tion: 30 day, Stop date: 09/21/15 0:00:00 Notes: (Same as: Duragesic)Check for product integrity. Apply to intact skin"Re move old patch before application of new patch" Start Date: 08/25/15 Stop Date: 08/25/15 Status: Discontinued Duragesic-25 50 microgram, Route: TOP, Drug Form: ERFILM, Q72H, Start date: 08/25/15 15:00:00 , Duration: 30 day, Stop date: 09/21/15 15:00:00 Notes: (Same as: Duragesic)Check for product integrity. Apply to intact skin"Re move old patch before application of new patch" Start Date: 08/25/15 Stop Date: 08/30/15 Status: Discontinued Habitrol 14 mg, 1 patch, Route: TOP, Drug form: ERFILM, Q24H, Start date: 08/28/15 20:00: 00, Duration: 30 day, Stop date: 09/26/15 20:00:00 Notes: (Same as: Habitrol)"Remove old patch before application of new patch"WAST E: F/P - P Waste Black; E - P Waste Black Start Date: 08/28/15 Stop Date: 09/05/15 Status: Discontinued Haldol 2 mg, 0.4 mL, Route: IM, Drug form: INJ, Q6H, PRN Anxiety, Start date: 08/25/15 22:33:00, Stop date: 09/24/15 22:32:00 Notes: (Same as: Haldol) Start Date: 08/25/15 Stop Date: 09/05/15 Status: Discontinued lactobacillus rhamnosus GG 1 cap, Route: PO, Drug Form: CAP, QID, Start date: 08/25/15 9:00:00, Duration: 3 0 day, Stop date: 09/23/15 21:00:00 Notes: Same as Manuelitollcase Start Date: 08/25/15 Stop Date: 09/05/15 Status: Discontinued Lovenox 40 mg, 0.4 mL, Route: SUB-Q, Drug form: INJ, QNoon, Start date: 08/25/15 12:00:0 0, Duration: 30 day, Stop date: 09/23/15 12:00:00 Notes: (Same as: Lovenox) Start Date: 08/25/15 Stop Date: 09/05/15 Status: Discontinued meropenem + Sodium Chloride 0.9% IV 100 mL 500 mg, Route: IVPB, ABXQ6H, Dosing Weight 65.909, kg, CrCL > = 50ml/min, Extended infusion, infuse over 3 hours, Start date: 09/05/15 20:00:00, Duration: 30 day, Stop date: 10/05/15 14:00:00 Notes: Same as Merrem MEDICATION WASTE Product Size: 500 mgProduct Wast ed: ___ mg Start Date: 09/05/15 Stop Date: 09/05/15 Status: Discontinued meropenem + Sodium Chloride 0.9% IV 100 mL 500 mg, Route: IVPB, ABXQ8H, Start date: 08/25/15 1:00:00, Duration: 30 day, Sto p date: 09/23/15 17:00:00 Notes: Same as Merrem MEDICATION WASTE Product Size: 500 mgProduct Wast ed: ___ mg Start Date: 08/25/15 Stop Date: 08/25/15 Status: Discontinued meropenem + Sodium Chloride 0.9% IV 100 mL 500 mg, Route: IVPB, Q6H, Dosing Weight 65.909, kg, CrCL > = 50ml/min, Extended infusion, infuse over 3 hours, Start date: 08/26/15 0:00:00, Duration: 30 day, Stop date: 09/24/15 18:00:00 Notes: Same as Merrem MEDICATION WASTE Product Size: 500 mgProduct Wast ed: ___ mg Start Date: 08/26/15 Stop Date: 09/05/15 Status: Discontinued methadone 5 mg, 1 tab, Route: PO, Drug form: TAB, Q24H, Dosing Weight 65.909, kg, Start da te: 09/05/15 21:00:00, Duration: 3 day, Stop date: 09/07/15 21:00:00 Notes: (Same as: Dolophine) Start Date: 09/05/15 Stop Date: 09/05/15 Status: Discontinued methadone 5 mg, 1 tab, Route: PO, Drug form: TAB, Q12H, Dosing Weight 65.909, kg, Start da te: 09/02/15 21:00:00, Duration: 3 day, Stop date: 09/05/15 9:00:00 Notes: (Same as: Dolophine) Start Date: 09/02/15 Stop Date: 09/05/15 Status: Completed multivitamin 1 tab, Route: PO, Drug Form: TAB, Daily, Start date: 08/25/15 9:00:00, Duration: 30 day, Stop date: 09/23/15 9:00:00 Notes: (Same as:Thera)WASTE: F/P - Black; E - Municipal Trash Bin Take with kameron d. Start Date: 08/25/15 Stop Date: 09/05/15 Status: Discontinued naloxone 0.2 mg, 0.5 mL, Route: IVP, Drug form: INJ, Q5Min, PRN Narcotic Reversal, Start date: 08/24/15 23:46:00, Duration: 30 day, Stop date: 09/23/15 23:45:00 Notes: Same as Narcan Start Date: 08/24/15 Stop Date: 09/05/15 Status: Discontinued Nicorette 2 mg, 1 ea, Route: CHEW, Drug form: GUM, Q2H, PRN Other -See Comment, Start date : 08/24/15 23:47:00, Duration: 30 day, Stop date: 09/23/15 23:46:00 Notes: Non-Formulary DrugWASTE: F/P - P Waste Black; E - P Waste Black (Same as : Nicorette) Start Date: 08/24/15 Stop Date: 09/05/15 Status: Discontinued Nicorette Nicorette, Nicorette 4mg gum, Drug form: MISC, Route: PO, Q12H, PRN Other -See C afshin, 09/03/15 15:12:00, Duration: 30 day, Stop date: 10/03/15 15:11:00 Start Date: 09/03/15 Stop Date: 09/05/15 Status: Discontinued oxyCONTIN 10 mg, 1 tab, Route: PO, Drug form: ERTAB, Q12H, Dosing Weight 65.909, kg, Start date: 09/05/15 21:00:00, Duration: 3 day, Stop date: 09/08/15 9:00:00 Notes: Do not crush or chew.(Same as: OxyContin) Start Date: 09/05/15 Stop Date: 09/05/15 Status: Discontinued oxyCONTIN 20 mg, 1 tab, Route: PO, Drug form: ERTAB, Q12H, Dosing Weight 65.909, kg, Start date: 09/02/15 21:00:00, Duration: 3 day, Stop date: 09/05/15 9:00:00 Notes: Do not crush or chew.(Same as: OxyContin) Start Date: 09/02/15 Stop Date: 09/05/15 Status: Completed oxyCONTIN 30 mg, 3 tab, Route: PO, Drug form: ERTAB, Q12H, Dosing Weight 65.909, kg, Start date: 08/30/15 21:00:00, Duration: 3 day, Stop date: 09/02/15 9:00:00 Notes: Do not crush or chew.(Same as: OxyContin) Start Date: 08/30/15 Stop Date: 09/02/15 Status: Completed oxyCONTIN 10 mg, 1 tab, Route: PO, Drug form: ERTAB, Q12H, Dosing Weight 65.909, kg, Start date: 09/05/15 23:00:00, Duration: 3 day, Stop date: 09/08/15 21:00:00 Notes: Do not crush or chew.(Same as: OxyContin) Start Date: 09/05/15 Stop Date: 09/05/15 Status: Discontinued Protonix 40 mg, 1 tab, Route: PO, Drug form: ECTAB, Before Dinner, Start date: 08/25/15 1 6:30:00, Duration: 30 day, Stop date: 09/23/15 16:30:00 Notes: Tablet should not be chewed or crushed.(Same as: Protonix) Start Date: 08/25/15 Stop Date: 09/05/15 Status: Discontinued remove patch 1 patch, Route: TOP, Drug form: ERFILM, Q72H, Start date: 08/28/15 0:00:00, Dura tion: 30 day, Stop date: 09/24/15 0:00:00 Notes: Remove old patch before application of new patch. Start Date: 08/28/15 Stop Date: 09/05/15 Status: Discontinued Santyl 1 appl, Route: TOP, Daily, Drug form: OINT, Start date: 08/25/15 9:00:00, Durati on: 30 day, Stop date: 09/23/15 9:00:00 Notes: (Same As: Santyl) Start Date: 08/25/15 Stop Date: 09/05/15 Status: Discontinued Senokot 8.6 mg, 1 tab, Route: PO, Drug form: TAB, BID, PRN Constipation, Start date: 0:14:00, Duration: 30 day, Stop date: 09/24/15 0:13:00 Notes: (Same as: Senokot) Start Date: 08/25/15 Stop Date: 09/05/15 Status: Discontinued sodium hypochlorite topical 0.25% solution 1 appl, Route: TOP, Daily, Drug form: SOLN, Start date: 08/25/15 9:00:00, Durati on: 30 day, Stop date: 09/23/15 9:00:00 Notes: Note: half-strength = 0.25% sodium hypochlorite. Start Date: 08/25/15 Stop Date: 09/05/15 Status: Discontinued tramadol 50 mg oral tablet 50 mg, 1 tab, Route: PO, Drug form: TAB, Q12H, PRN Pain Score 4-6, Start date: 0 09/03/15 18:23:00, Duration: 30 day, Stop date: 10/03/15 18:22:00 Notes: Not to exceed 400mg/day. (Same As: Ultram) Start Date: 09/03/15 Stop Date: 09/03/15 Status: Deleted Xanax 1 mg, 1 tab, Route: PO, Drug form: TAB, BID, Start date: 08/25/15 9:00:00, Stop date: 09/23/15 17:00:00 Notes: With food or milk(Same as: Xanax) Start Date: 08/25/15 Stop Date: 09/05/15 Status: Discontinued Zyvox 600 mg, 1 tab, Route: PO, Drug form: TAB, [id number], Dosing Weight 65.909, kg, Sta rt date: 08/25/15 19:00:00, Duration: 30 day, Stop date: 09/24/15 7:00:00 Notes: Protect from light. (Same as: Zyvox) Start Date: 08/25/15 Stop Date: 09/05/15 Status: Discontinued Zyvox 600 mg, 1 tab, Route: PO, Drug form: TAB, Q12H, Start date: 08/25/15 0:13:00, Du ration: 30 day, Stop date: 09/23/15 21:00:00 Notes: Protect from light. (Same as: Zyvox) Start Date: 08/25/15 Stop Date: 08/25/15 Status: Discontinued Results ELECTROLYTES 1 2 3 Most recent to oldest [Reference Range]: 139 mEq/L (09/02/15 5:08 AM) 143 mEq/L (08/29/15 4:12 AM) 141 mEq/L (08/25/15 4:44 AM) Sodium Lvl [135-145 mEq/L] 4.3 mEq/L (09/02/15 5:08 AM) 4.3 mEq/L (08/29/15 4:12 AM) 4.3 mEq/L (08/25/15 4:44 AM) Potassium Lvl [3.5-5.1 mEq/L] 106 mEq/L (09/02/15 5:08 AM) 106 mEq/L (08/29/15 4:12 AM) 105 mEq/L (08/25/15 4:44 AM) Chloride Lvl [95-109 mEq/L] 27 mEq/L (09/02/15 5:08 AM) 27 mEq/L (08/29/15 4:12 AM) 27 mEq/L (08/25/15 4:44 AM) CO2 [24-32 mEq/L] 10.3 mEq/L (09/02/15 5:08 AM) 14.3 mEq/L (08/29/15 4:12 AM) 13.3 mEq/L (08/25/15 4:44 AM) AGAP [10.0-20.0 mEq/L] CHEM PANEL 1 2 3 Most recent to oldest [Reference Range]: 1.00 mg/dL (09/02/15 5:08 AM) 1.00 mg/dL (08/29/15 4:12 AM) 0.90 mg/dL (08/25/15 4:44 AM) Creatinine Lvl [0.50-1.40 mg/dL] 101 mL/min/1.73m2 1 *NA* (09/02/15 5:08 AM) 101 mL/min/1.73m2 2 *NA* (08/29/15 4:12 AM) 114 mL/min/1.73m2 3 *NA* (08/25/15 4:44 AM) eGFR 18 mg/dL (09/02/15 5:08 AM) 19 mg/dL (08/29/15 4:12 AM) 15 mg/dL (08/25/15 4:44 AM) BUN [7-22 mg/dL] 70 mg/dL (09/02/15 5:08 AM) 86 mg/dL (08/29/15 4:12 AM) 66 mg/dL *LOW* (08/25/15 4:44 AM) Glucose Lvl [70-99 mg/dL] 9.3 mg/dL (09/02/15 5:08 AM) 8.4 mg/dL *LOW* (08/29/15 4:12 AM) 9.4 mg/dL (08/25/15 4:44 AM) Calcium Lvl [8.5-10.5 mg/dL] 1Result Comment: The eGFR is calculated using [...] be mul tiplied by the estimated BMI. DRUG SCREEN 1 2 3 Most recent to oldest [Reference Range]: Negative *NA* (08/26/15 5:08 AM) U Amph Scr [Negative] Negative *NA* (08/26/15 5:08 AM) U Chelsie Scr [Negative] Positive *ABN* (08/26/15 5:08 AM) U Benzodia Scr [Negative] Negative *NA* (08/26/15 5:08 AM) U Cocaine Scr [Negative] Negative *NA* (08/26/15 5:08 AM) U Opiate Scr [Negative] Negative *NA* (08/26/15 5:08 AM) U Phencyc Scr [Negative] Positive *ABN* (08/26/15 5:08 AM) U Cannab Scr [Negative] See Note (08/26/15 5:08 AM) UDS Note HEMATOLOGY 1 2 3 Most recent to oldest [Reference Range]: 5.4 K/CMM (09/02/15 5:08 AM) 5.9 K/CMM (08/29/15 4:12 AM) 6.2 K/CMM (08/25/15 4:44 AM) WBC [3.7-10.4 K/CMM] 3.03 M/CMM *LOW* (09/02/15 5:08 AM) 3.09 M/CMM *LOW* (08/29/15 4:12 AM) 2.97 M/CMM *LOW* (08/25/15 4:44 AM) RBC [4.70-6.10 M/CMM] 8.2 g/dL *LOW* (09/02/15 5:08 AM) 8.4 g/dL *LOW* (08/29/15 4:12 AM) 8.1 g/dL *LOW* (08/25/15 4:44 AM) Hgb [14.0-18.0 g/dL] 25.6 % *LOW* (09/02/15 5:08 AM) 26.3 % *LOW* (08/29/15 4:12 AM) 25.3 % *LOW* (08/25/15 4:44 AM) Hct [42.0-54.0 %] 84.4 fL (09/02/15 5:08 AM) 85.3 fL (08/29/15 4:12 AM) 85.2 fL (08/25/15 4:44 AM) MCV [80.0-94.0 fL] 27.0 pg (09/02/15 5:08 AM) 27.3 pg (08/29/15 4:12 AM) 27.3 pg (08/25/15 4:44 AM) MCH [27.0-31.0 pg] 32.0 g/dL (09/02/15 5:08 AM) 32.0 g/dL (08/29/15 4:12 AM) 32.0 g/dL (08/25/15 4:44 AM) MCHC [32.0-36.0 g/dL] 17.7 % *HI* (09/02/15 5:08 AM) 18.1 % *HI* (08/29/15 4:12 AM) 17.9 % *HI* (08/25/15 4:44 AM) RDW [11.5-14.5 %] 191 K/CMM (09/02/15 5:08 AM) 249 K/CMM (08/29/15 4:12 AM) 325 K/CMM (08/25/15 4:44 AM) Platelet [133-450 K/CMM] 7.8 fL (09/02/15 5:08 AM) 7.3 fL *LOW* (08/29/15 4:12 AM) 7.7 fL (08/25/15 4:44 AM) MPV [7.4-10.4 fL] 32.8 % *LOW* (09/02/15 5:08 AM) 40.2 % *LOW* (08/29/15 4:12 AM) 56.3 % (08/25/15 4:44 AM) Segs [45.0-75.0 %] 46.4 % *HI* (09/02/15 5:08 AM) 41.9 % *HI* (08/29/15 4:12 AM) 35.1 % (08/25/15 4:44 AM) Lymphocytes [20.0-40.0 %] 13.4 % *HI* (09/02/15 5:08 AM) 15.0 % *HI* (08/29/15 4:12 AM) 5.1 % (08/25/15 4:44 AM) Monocytes [2.0-12.0 %] 6.6 % *HI* (09/02/15 5:08 AM) 2.1 % (08/29/15 4:12 AM) 2.1 % (08/25/15 4:44 AM) Eosinophils [0.0-4.0 %] 0.8 % (09/02/15 5:08 AM) 0.8 % (08/29/15 4:12 AM) 1.4 % *HI* (08/25/15 4:44 AM) Basophils [0.0-1.0 %] 1.8 K/CMM (09/02/15 5:08 AM) 2.4 K/CMM (08/29/15 4:12 AM) 3.5 K/CMM (08/25/15 4:44 AM) Segs-Bands # [1.5-8.1 K/CMM] 2.5 K/CMM (09/02/15 5:08 AM) 2.5 K/CMM (08/29/15 4:12 AM) 2.2 K/CMM (08/25/15 4:44 AM) Lymphocytes # [1.0-5.5 K/CMM] 0.7 K/CMM (09/02/15 5:08 AM) 0.9 K/CMM *HI* (08/29/15 4:12 AM) 0.3 K/CMM (08/25/15 4:44 AM) Monocytes # [0.0-0.8 K/CMM] 0.4 K/CMM (09/02/15 5:08 AM) 0.1 K/CMM (08/29/15 4:12 AM) 0.1 K/CMM (08/25/15 4:44 AM) Eosinophils # [0.0-0.5 K/CMM] 0.0 K/CMM (08/29/15 4:12 AM) 0.1 K/CMM (08/25/15 4:44 AM) Basophils # [0.0-0.2 K/CMM] Immunizations Vaccine Date Refusal Reason influenza virus [...]
--- OUTSIDE RECORDS SUMMARY | 2020-03-18 10:21 | XMS REPORT | Summary of Care ---
Author Author [facility] ospital Organization [facility] Address Unknown Phone Unavailable Encounter MOJGAN Jacques(AMARI) [id number] Date(s): 10/19/15 - 10/19/15 [facility] [address] [place] [address]- Discharge Disposition: Admitted as inpatient Attending Physician: Martha El MD Admitting Physician: Zechariah Cruz MD Vital Signs 1 2 3 Most recent to oldest [Reference Range]: 195.58 cm (10/19/15 12:37 AM) Height 98.4 DegF (10/19/15 6:44 AM) 98.4 DegF (10/19/15 4:32 AM) Temperature Oral [96.4-99.1 DegF] 133/86 mmHg (10/19/15 10:08 AM) 144/90 mmHg *HI* (10/19/15 9:18 AM) 125/84 mmHg (10/19/15 7:27 AM) Blood Pressure [90-140/60-90 mmHg] 20 BRMIN (10/19/15 10:08 AM) 18 BRMIN (10/19/15 7:27 AM) 20 BRMIN (10/19/15 6:44 AM) Respiratory Rate [14-20 BRMIN] 111 bpm *HI* (10/19/15 10:08 AM) 107 bpm *HI* (10/19/15 9:18 AM) 113 bpm *HI* (10/19/15 7:27 AM) Peripheral Pulse Rate [60-100 bpm] 72.727 kg (10/19/15 12:37 AM) Weight 19.01 m2 (10/19/15 12:37 AM) Body Mass Index Problem List Condition Effective Dates Status Health Status Caleb Soto(Confir 05/27/15 Active med)1, 2, 3, 4 Acute [...] Resolved C(Confirmed) HTN Active (hypertension)(Confi rmed) Klebsiella 10/07/15 Active pneumoniae(Confirmed )12, 13, 14, 15, 16, 17 MRSA(Confirmed) Active MRSA(Confirmed)18, 08/09/15 Active 19, 20 Nephrectomy(Confirme Active d) Neurogenic Active bladder(Confirmed) Osteomyelitis L Resolved foot(Confirmed) Pain(Confirmed) Active Paraplegia(Confirmed Active ) Pneumonia(Confirmed) Active (Improving) Pseudomonas(Confirme Active d)21, 22, 23 Removal of lacerated Active fragment of liver(Confirmed) Spinal cord Active decompression injury(Confirmed) Splenomegaly(Confirm Active ed) Toe Resolved gangrene(Confirmed) Urethral Active stent(Confirmed) UTI - Urinary tract Active infection(Confirmed) Vomiting(Confirmed) Active VRE(Confirmed)24, 08/08/15 Active 25, 26, 27 Wheelchair Active bound(Confirmed) Wound(Confirmed) Active 1MDRO -- SACRUM, 05/27/2015 210-13-12 MDR-Acinetobacter: right foot wnd --MDRO Acinetobacter collected from urine 4Problem added by [employer] Expert. 5Ecoli ESBL isolated from urine 08/08/2015 6SACRUM, 05/27/2015 7URINE, 06/25/2014 810-13-12 E. COLI + ESBL: left & right foot wnd 9MDRO, URINE, 02/11/2012 10MDRO, URINE, 11/06/2011 11Problem added by [employer] Expert. 12Blood, 10/07/2015 13R. klebsiella pneumon isolated from l ankle wound 14ESBL klebsiella pneumo isolated from urine 08/08/2015 15MDRO, CRE -- RIGHT HIP, 06/02/2015 16MDRO, CRE -- URINE, 05/27/2015 17Problem added by Discern Expert. 18MRSA isolated from nares 08/09/15 19SACRUM, 05/27/2015 20Problem added by Discern Expert. 21R. Pseudomonas, a isolated from r ankle wound 08/14/2015 22R. pseudomonas aeruginosa isolated from urine 08/08/2015 23Problem added by Discern Expert. 24VRE isolated from urine 25RIGHT HIP, 06/02/2015 26URINE, 02/24/2012 27Problem added by Discern Expert. Allergies, Adverse Reactions, Alerts Substance Reaction Severity Status Latex Active naproxen Active NKFA Active traMADol Active Medications acetaminophen 650 mg, 2 tab, Route: PO, Drug form: TAB, Q4H, Dosing Weight 72.727, kg, PRN Maxwell n 1-3/Temp > 100.4 F, Start date: 10/19/15 2:30:00, Duration: 30 day, Stop date: 11/18/15 2:29:00 Notes: Do not exceed 4 gm/day. (Same as: Tylenol) Start Date: 10/19/15 Stop Date: 10/19/15 Status: Discontinued Ativan 1 mg, Route: IVP, Drug form: INJ, ONCE, Dosing Weight 72.727, kg, PRN Anxiety, S tart date: 10/19/15 4:44:00 Start Date: 10/19/15 Stop Date: 10/19/15 Status: Completed ceftazidime-avibactam + Sodium Chloride 0.9% IV 100 mL 2.5 gm, Route: IV, Drug form: INJ, Q8Hnow, Dosing Weight 72.727, kg, Priority: S TAT, Start date: 10/19/15 2:30:00, Duration: 30 day, Stop date: 11/17/15 18:30:0 0 Notes: (Same as: Avycaz)Non-formulary Start Date: 10/19/15 Stop Date: 10/19/15 Status: Discontinued enoxaparin 40 mg, 0.4 mL, Route: SUB-Q, Drug form: INJ, [id number], Dosing Weight 72.727, kg, Start date: 10/19/15 3:00:00, Duration: 30 day, Stop date: 11/17/15 3:00:00 Notes: (Same as: Lovenox) Start Date: 10/19/15 Stop Date: 10/19/15 Status: Discontinued morphine Sulfate 2 mg, 1 mL, Route: IVP, Drug form: INJ, Q3H, Dosing Weight 72.727, kg, PRN Pain Score 4-6, Start date: 10/19/15 2:30:00, Duration: 30 day, Stop date: 11/18/15 2 :29:00 Notes: (Same as:MORPhine Sulfate) Start Date: 10/19/15 Stop Date: 10/19/15 Status: Discontinued ondansetron 4 mg, 2 mL, Route: IVP, Drug form: INJ, Q4H, Dosing Weight 72.727, kg, PRN Nause a & Vomiting, Start date: 10/19/15 2:30:00, Duration: 30 day, Stop date: 11/18/15 2:29:00 Notes: (Same as: Klaus) MEDICATION WASTE Product Size: 4 mgProduct Was reinaldo: ___ mg Start Date: 10/19/15 Stop Date: 10/19/15 Status: Discontinued Saline Flush 0.9% 10 ml, Route: IVP, Drug Form: INJ, Dosing Weight 72.727, kg, PRN, PRN Line Flush , Start date: 10/19/15 2:30:00, Duration: 30 day, Stop date: 11/18/15 2:29:00 Notes: (Same as: BD Posiflush) Start Date: 10/19/15 Stop Date: 10/19/15 Status: Discontinued Sodium Chloride 0.45% IV 1,000 mL 1,000 mL, Rate: 125 ml/hr, Infuse over: 8 hr, Route: IV, Dosing Weight 72.727 kg , Total Volume: 1,000, Start date: 10/19/15 2:30:00, Duration: 30 day, Stop date : 11/18/15 2:29:00 Start Date: 10/19/15 Stop Date: 10/19/15 Status: Discontinued Sodium Chloride 0.9% (Bolus) IV 1,000 mL, 1,000 ml/hr, Infuse Over: 1 hr, Route: IV, 1,000, Drug form: INJ, ONCE , Priority: STAT, Dosing Weight 72.727 kg, Start date: 10/19/15 0:57:00, Davidtio n: 1 doses or times, Stop date: 10/19/15 0:57:00 Start Date: 10/19/15 Stop Date: 10/19/15 Status: Completed Results ELECTROLYTES Most recent to 1 2 oldest [Reference Range]: Sodium Lvl [135-145 137 mEq/L mEq/L] (10/19/15 7:37 AM) Potassium Lvl 4.8 mEq/L [3.5-5.1 mEq/L] (10/19/15 7:37 AM) Chloride Lvl [95-109 106 mEq/L mEq/L] (10/19/15 7:37 AM) CO2 [24-32 mEq/L] 27 mEq/L (10/19/15 7:37 AM) AGAP [10.0-20.0 8.8 mEq/L mEq/L] *LOW* (10/19/15 7:37 AM) CHEM PANEL Most recent to 1 2 oldest [Reference Range]: Creatinine Lvl 1.22 mg/dL [0.50-1.40 mg/dL] (10/19/15 7:37 AM) eGFR 79 mL/min/1.73m2 1 *NA* (10/19/15 7:37 AM) BUN [7-22 mg/dL] 22 mg/dL (10/19/15 7:37 AM) B/C Ratio [6-25] 18 (10/19/15 7:37 AM) Glucose Lvl [70-99 114 mg/dL mg/dL] *HI* (10/19/15 7:37 AM) Total Protein 8.1 g/dL [6.4-8.4 g/dL] (10/19/15 7:37 AM) Albumin Lvl [3.5-5.0 2.1 g/dL g/dL] *LOW* (10/19/15 7:37 AM) Globulin [2.0-4.0 6.0 g/dL g/dL] *HI* (10/19/15 7:37 AM) A/G Ratio [0.7-1.6] 0.4 *LOW* (10/19/15 7:37 AM) Calcium Lvl 8.9 mg/dL [8.5-10.5 mg/dL] (10/19/15 7:37 AM) Magnesium Lvl 1.3 mg/dL [1.8-2.4 mg/dL] *LOW* (10/19/15 7:37 AM) ALT [0-65 unit/L] 30 unit/L (10/19/15 7:37 AM) AST [0-37 unit/L] 21 unit/L (10/19/15 7:37 AM) Alk Phos [39-136 116 unit/L unit/L] (10/19/15 7:37 AM) Bili Total [0.2-1.3 0.2 mg/dL mg/dL] (10/19/15 7:37 AM) 1Result Comment: The eGFR is calculated using [...] tiplied by the estimated BMI. CARDIAC ENZYMES Most recent to 1 2 oldest [Reference Range]: CK MB [0.5-3.6 1.6 ng/mL 1.5 ng/mL ng/mL] (10/19/15 7:37 AM) (10/19/15 7:37 AM) Troponin-I 0.03 ng/mL 0.03 ng/mL [0.00-0.40 ng/mL] (10/19/15 7:37 AM) (10/19/15 7:37 AM) DRUG SCREEN Most recent to 1 2 oldest [Reference Range]: U Amph Scr Negative [Negative] *NA* (10/19/15 1:36 AM) U Chelsie Scr Negative [Negative] *NA* (10/19/15 1:36 AM) U Benzodia Scr Positive [Negative] *ABN* (10/19/15 1:36 AM) U Cocaine Scr Negative [Negative] *NA* (10/19/15 1:36 AM) U Opiate Scr Positive [Negative] *ABN* (10/19/15 1:36 AM) U Phencyc Scr Negative [Negative] *NA* (10/19/15 1:36 AM) U Cannab Scr Positive [Negative] *ABN* (10/19/15 1:36 AM) UDS Note See Note (10/19/15 1:36 AM) HEMATOLOGY Most recent to 1 2 oldest [Reference Range]: PT [12.0-14.7 14.2 seconds seconds] (10/19/15 7:37 AM) INR [0.85-1.17] 1.07 (10/19/15 7:37 AM) PTT [22.9-35.8 36.0 seconds seconds] *HI* (10/19/15 7:37 AM) Immunizations Vaccine Date Refusal Reason influenza virus [...] Beer. 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
--- OUTSIDE RECORDS SUMMARY | 2020-03-18 10:21 | XMS REPORT | Summary of Care ---
Author Author [facility] ospital Organization [facility] Address Unknown Phone Unavailable Encounter MOJGAN Jacques(AMARI) [id number] Date(s): 10/16/15 - 10/18/15 [facility] [address] [place] [address]- [phone] Discharge Disposition: Against Medical Advise Attending Physician: Truman Yu MD Admitting Physician: Truman Yu MD Vital Signs 1 2 3 Most recent to oldest [Reference Range]: 182.88 cm (10/16/15 5:57 PM) Height 97.8 DegF (10/18/15 8:00 PM) 97.9 DegF (10/18/15 4:00 PM) 98.7 DegF (10/18/15 12:00 PM) Temperature Oral [96.4-99.1 DegF] 114/76 mmHg (10/18/15 8:00 PM) 102/62 mmHg (10/18/15 4:15 PM) 93/60 mmHg (10/18/15 4:00 PM) Blood Pressure [90-140/60-90 mmHg] 18 BRMIN (10/18/15 8:00 PM) 18 BRMIN (10/18/15 4:00 PM) 18 BRMIN (10/18/15 12:00 PM) Respiratory Rate [14-20 BRMIN] 94 bpm (10/18/15 8:00 PM) 86 bpm (10/18/15 4:00 PM) 74 bpm (10/18/15 12:15 PM) Peripheral Pulse Rate [60-100 bpm] 68.182 kg (10/16/15 5:57 PM) Weight 20.39 m2 (10/16/15 5:57 PM) Body Mass Index Problem List Condition [...] Acinetobacter collected from urine 4Problem added by [employer] Expert. 5Ecoli ESBL isolated from urine 08/08/2015 6SACRUM, 05/27/2015 7URINE, 06/25/2014 810-13-12 E. COLI + ESBL: left & right foot wnd 9MDRO, URINE, 02/11/2012 10MDRO, URINE, 11/06/2011 11Problem added by [employer] Expert. 12Blood, 10/07/2015 13R. klebsiella pneumon isolated [...] NKFA Active traMADol Active Medications acetaminophen 325 mg oral tablet 650 mg, 2 tab, Route: PO, Drug form: TAB, Q6H, Dosing Weight 68.182, kg, PRN Maxwell n 1-3/Temp > 100.4 F, Start date: 10/16/15 18:13:00, Duration: 30 day, Stop date: 11/15/15 18:12:00, temp > 100.4 Notes: Do not exceed 4 gm/day. (Same as: Tylenol) Start Date: 10/16/15 Stop Date: 10/19/15 Status: Discontinued acetaminophen-hydrocodone 325 mg-10 mg oral tablet 1 tab, Route: PO, Drug Form: TAB, Dosing Weight 68.182, kg, Q6H, PRN Pain Score 4-6, Start date: 10/16/15 18:12:00, Duration: 30 day, Stop date: 11/15/15 18:11: 00 Notes: Do not exceed 4gm/day of acetaminophen. (Same as: [place] 325/10) Start Date: 10/16/15 Stop Date: 10/16/15 Status: Discontinued acetaminophen-hydrocodone 325 mg-10 mg oral tablet 2 tab, Route: PO, Drug Form: TAB, Q6H, PRN Other -See Comment, Start date: 10/16 2:06:00, Duration: 30 day, Stop date: 11/16/15 2:05:00 Notes: Do not exceed 4gm/day of acetaminophen. (Same as: [place] 325/10) Start Date: 10/17/15 Stop Date: 10/19/15 Status: Discontinued ALPRAZOLam 1 mg oral tablet 2 mg, 2 tab, Route: PO, Drug form: TAB, TID, Dosing Weight 69.574, kg, Start river e: 10/17/15 9:00:00, Duration: 30 day, Stop date: 11/15/15 17:00:00 Notes: With food or milk(Same as: Xanax) Start Date: 10/17/15 Stop Date: 10/19/15 Status: Discontinued amitriptyline 50 mg, 1 tab, Route: PO, Drug form: TAB, Bedtime, Dosing Weight 69.574, kg, Star t date: 10/16/15 21:00:00, Duration: 30 day, Stop date: 11/14/15 21:00:00 Notes: (Same as: Elavil) Start Date: 10/16/15 Stop Date: 10/19/15 Status: Discontinued baclofen 10 mg, 0.5 tab, Route: PO, Drug form: TAB, Q6H, Dosing Weight 68.182, kg, Start date: 10/17/15 0:00:00, Stop date: 11/15/15 18:00:00 Notes: (Same As: Lioresal) Start Date: 10/17/15 Stop Date: 10/19/15 Status: Discontinued ceftazidime-avibactam + Sodium Chloride 0.9% IV 100 mL 2.5 gm, Route: IV, Drug form: INJ, Q8H, Dosing Weight 68.182, kg, Start date: 0:00:00, Duration: 2 day, Stop date: 10/19/15 8:00:00 Notes: (Same as: Avycaz)Non-formulary Start Date: 10/17/15 Stop Date: 10/19/15 Status: Discontinued Dilaudid 4 mg, 2 tab, Route: PO, Drug form: TAB, Q6H, Dosing Weight 68.182, kg, PRN Pain Score 7-10, Start date: 10/16/15 18:50:00, Duration: 30 day, Stop date: 11/15/15 18:49:00 Notes: (Same as: Dilaudid) Start Date: 10/16/15 Stop Date: 10/19/15 Status: Discontinued docusate sodium 50 mg oral capsule 50 mg, 1 cap, Route: PO, Drug form: CAP, BID, PRN Constipation, Start date: 10/02 11/17 18:23:00, Stop date: 11/15/15 18:22:00 Notes: (Same as: Colace) (Do Not Crush) Start Date: 10/16/15 Stop Date: 10/16/15 Status: Deleted docusate sodium 50 mg oral capsule 50 mg, 1 cap, Route: PO, Drug form: CAP, BID, PRN Constipation, Start date: 10/02 11/17 18:39:00, Duration: 30 day, Stop date: 11/15/15 18:38:00 Notes: (Same as: Colace) (Do Not Crush) Start Date: 10/16/15 Stop Date: 10/19/15 Status: Discontinued docusate-senna 50 mg-8.6 mg oral tablet 1 tab, Route: PO, Drug Form: TAB, Dosing Weight 68.182, kg, BID, PRN Constipatio n, Start date: 10/16/15 18:13:00, Duration: 30 day, Stop date: 11/15/15 18:12:00 Start Date: 10/16/15 Stop Date: 10/16/15 Status: Discontinued epoetin geetha 7,000 unit, 0.7 mL, Route: SUB-Q, Drug form: INJ, Q-M-W-F, Dosing Weight 68.182, kg, Start date: 10/18/15 17:00:00, Duration: 30 day, Stop date: 11/15/15 17:00: 00 Notes: (Same as: Procrit) epoetin geetha 10,000 unit/1 ml VLFor non-dialysis use o nly.WASTE: F/P - Red; E -Red MEDICATION WASTE Product Size: 11372 unitP roduct Wasted: ___ unit Start Date: 10/18/15 Stop Date: 10/18/15 Status: Canceled gabapentin 100 mg oral capsule 100 mg, 1 cap, Route: PO, Drug form: CAP, Q8H, Dosing Weight 69.574, kg, Start d ate: 10/17/15 0:00:00, Duration: 30 day, Stop date: 11/15/15 16:00:00 Notes: (Same as: Neurontin) Start Date: 10/17/15 Stop Date: 10/19/15 Status: Discontinued levofloxacin 750 mg, 1 tab, Route: PO, Drug form: TAB, [id number], Dosing Weight 68.182, kg, Sta rt date: 10/16/15 19:00:00, Duration: 30 day, Stop date: 11/14/15 19:00:00 Notes: Do not give w/antacids, dairy pdt & mineralsTake 1 hr before or 2 hr after dairy products Start Date: 10/16/15 Stop Date: 10/16/15 Status: Canceled Lovenox 40 mg, 0.4 mL, Route: SUB-Q, Drug form: INJ, [id number], Dosing Weight 69.574, kg, Start date: 10/16/15 18:00:00, Duration: 30 day, Stop date: 11/14/15 18:00:00 Notes: (Same as: Lovenox) Start Date: 10/16/15 Stop Date: 10/19/15 Status: Discontinued normal saline inhalation solution 0.09 gm, Route: IVP, Drug Form: INJ, Dosing Weight 68.182, kg, PRN, PRN Line Flu sh, Start date: 10/16/15 18:14:00, Duration: 30 day, Stop date: 11/15/15 18:13:0 0 Notes: (Same as: BD Posiflush) Start Date: 10/16/15 Stop Date: 10/19/15 Status: Discontinued ondansetron 4 mg, 2 mL, Route: IVP, Drug form: INJ, Q6H, Dosing Weight 68.182, kg, PRN Nause a, Start date: 10/16/15 18:14:00, Duration: 30 day, Stop date: 11/15/15 18:13:00 Notes: (Same as: Zofran) MEDICATION WASTE Product Size: 4 mgProduct Was reinaldo: ___ mg Start Date: 10/16/15 Stop Date: 10/19/15 Status: Discontinued oxyCODONE 10 mg extended release 40 mg, 1 tab, Route: PO, Drug form: ERTAB, Q12H, Start date: 10/16/15 21:00:00, Duration: 30 day, Stop date: 11/15/15 9:00:00 Notes: Do not crush or chew.(Same as: OxyContin) Start Date: 10/16/15 Stop Date: 10/17/15 Status: Discontinued oxyCODONE 5 mg immediate release 30 mg, Route: PO, Drug form: TAB, Q6H, Dosing Weight 68.182, kg, PRN Pain Score 7-10, Start date: 10/16/15 18:51:00, Duration: 30 day, Stop date: 11/15/15 18:50 :00 Start Date: 10/16/15 Stop Date: 10/16/15 Status: Discontinued pantoprazole 40 mg, 1 tab, Route: PO, Drug form: ECTAB, Before Dinner, Dosing Weight 68.182, kg, Start date: 10/17/15 16:30:00, Duration: 30 day, Stop date: 11/15/15 16:30:0 0 Notes: Tablet should not be chewed or crushed.(Same as: Protonix) Start Date: 10/17/15 Stop Date: 10/19/15 Status: Discontinued senna 8.6 mg oral tablet 8.6 mg, 1 tab, Route: PO, Drug Form: TAB, Dosing Weight 68.182, kg, BID, PRN Con stipation, Start date: 10/16/15 18:11:00, Duration: 30 day, Stop date: 11/15/15 18:10:00 Start Date: 10/16/15 Stop Date: 10/16/15 Status: Discontinued Senokot 8.6 mg, 1 tab, Route: PO, Drug form: TAB, BID, PRN Constipation, Start date: 18:23:00, Stop date: 11/15/15 18:22:00 Notes: (Same as: Senokot) Start Date: 10/16/15 Stop Date: 10/16/15 Status: Deleted Senokot 8.6 mg, 1 tab, Route: PO, Drug form: TAB, BID, PRN Constipation, Start date: 18:39:00, Duration: 30 day, Stop date: 11/15/15 18:38:00 Notes: (Same as: Senokot) Start Date: 10/16/15 Stop Date: 10/19/15 Status: Discontinued Therapeutic Nutrition 24 gm packet 1 pkt, Route: PO, Drug Form: PWDR, Dosing Weight 68.182, kg, BID, Start date: 17:00:00, Duration: 28 day, Stop date: 11/14/15 9:00:00 Notes: (Same as: Levi Colon) Start Date: 10/17/15 Stop Date: 10/19/15 Status: Discontinued Results ELECTROLYTES Most recent to 1 2 oldest [Reference Range]: Sodium Lvl [135-145 138 mEq/L 138 mEq/L mEq/L] (10/18/15 5:56 AM) (10/17/15 4:16 AM) Potassium Lvl 4.8 mEq/L 5.0 mEq/L [3.5-5.1 mEq/L] (10/18/15 5:56 AM) (10/17/15 4:16 AM) Chloride Lvl [95-109 108 mEq/L 108 mEq/L mEq/L] (10/18/15 5:56 AM) (10/17/15 4:16 AM) CO2 [24-32 mEq/L] 23 mEq/L 21 mEq/L *LOW* *LOW* (10/18/15 5:56 AM) (10/17/15 4:16 AM) AGAP [10.0-20.0 11.8 mEq/L 14.0 mEq/L mEq/L] (10/18/15 5:56 AM) (10/17/15 4:16 AM) CHEM PANEL Most recent to 1 2 oldest [Reference Range]: Creatinine Lvl 1.50 mg/dL 1.50 mg/dL [0.50-1.40 mg/dL] *HI* *HI* (10/18/15 5:56 AM) (10/17/15 4:16 AM) eGFR 62 mL/min/1.73m2 1 62 mL/min/1.73m2 2 *NA* *NA* (10/18/15 5:56 AM) (10/17/15 4:16 AM) BUN [7-22 mg/dL] 23 mg/dL 23 mg/dL *HI* *HI* (10/18/15 5:56 AM) (10/17/15 4:16 AM) Glucose Lvl [70-99 104 mg/dL 97 mg/dL mg/dL] *HI* (10/17/15 4:16 AM) (10/18/15 5:56 AM) Calcium Lvl 8.9 mg/dL 8.4 mg/dL [8.5-10.5 mg/dL] (10/18/15 5:56 AM) *LOW* (10/17/15 4:16 AM) 1Result Comment: The eGFR is calculated [...] be mul tiplied by the estimated BMI. HEMATOLOGY Most recent to 1 2 oldest [Reference Range]: WBC [3.7-10.4 K/CMM] 9.8 K/CMM (10/17/15 4:16 AM) RBC [4.70-6.10 2.89 M/CMM M/CMM] *LOW* (10/17/15 4:16 AM) Hgb [14.0-18.0 g/dL] 8.6 g/dL *LOW* (10/17/15:16 AM) Hct [42.0-54.0 %] 26.3 % *LOW* (10/17/15:16 AM) MCV [80.0-94.0 fL] 91.0 fL (10/17/15 4:16 AM) MCH [27.0-31.0 pg] 29.8 pg (10/17/15:16 AM) MCHC [32.0-36.0 32.7 g/dL g/dL] (10/17/15 4:16 AM) RDW [11.5-14.5 %] 22.3 % *HI* (10/17/15:16 AM) Platelet [133-450 525 K/CMM K/CMM] *HI* (10/17/15:16 AM) MPV [7.4-10.4 fL] 8.0 fL (10/17/15 4:16 AM) Segs [45.0-75.0 %] 67.4 % (10/17/15 4:16 AM) Lymphocytes 20.7 % [20.0-40.0 %] (10/17/15 4:16 AM) Monocytes [2.0-12.0 8.5 % %] (10/17/15 4:16 AM) Eosinophils [0.0-4.0 2.4 % %] (10/17/15 4:16 AM) Basophils [0.0-1.0 1.0 % %] (10/17/15 4:16 AM) Segs-Bands # 6.6 K/CMM [1.5-8.1 K/CMM] (10/17/15 4:16 AM) Lymphocytes # 2.0 K/CMM [1.0-5.5 K/CMM] (10/17/15 4:16 AM) Monocytes # [0.0-0.8 0.8 K/CMM K/CMM] (10/17/15 4:16 AM) Eosinophils # 0.2 K/CMM [0.0-0.5 K/CMM] (10/17/15 4:16 AM) Basophils # [0.0-0.2 0.1 K/CMM K/CMM] (10/17/15 4:16 AM) Immunizations Vaccine Date Refusal Reason influenza [...] Last 365 Days Yes; 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 non weight bearing . I reinforced with Mr Gastelum will follow
--- OUTSIDE RECORDS SUMMARY | 2020-03-18 10:21 | XMS REPORT | Summary of Care ---
Author Author [facility] Organization [facility] Address Unknown Phone Unavailable Encounter MOJGAN Jacques(AMARI) [id number] Date(s): 06/16/15 - 06/21/[address] [address]- Discharge Disposition: Home Attending Physician: Ace Clay MD Admitting Physician: Ace Clay MD Vital Signs 1 2 3 Most recent to oldest [Reference Range]: 182.88 cm (06/16/15 9:39 PM) 182.88 cm (06/16/15 5:43 PM) Height 97.9 DegF (06/21/15 12:00 PM) 98.0 DegF (06/21/15 8:00 AM) 98.1 DegF (06/21/15 12:00 AM) Temperature Oral [96.4-99.1 DegF] 116/73 mmHg (06/21/15 12:00 PM) 136/82 mmHg (06/21/15 8:00 AM) 105/70 mmHg (06/21/15 12:00 AM) Blood Pressure [90-140/60-90 mmHg] 18 BRMIN (06/21/15 12:00 PM) 18 BRMIN (06/21/15 8:00 AM) 18 BRMIN (06/21/15 12:00 AM) Respiratory Rate [14-20 BRMIN] 93 bpm (06/21/15 12:00 PM) 95 bpm (06/21/15 8:00 AM) 101 bpm *HI* (06/21/15 12:00 AM) Peripheral Pulse Rate [60-100 bpm] 69.8 kg (06/16/15 9:39 PM) 65.909 kg (06/16/15 5:43 PM) Weight 20.87 m2 (06/16/15 9:39 PM) 19.71 m2 (06/16/15 5:43 PM) Body Mass Index Problem List Condition [...] Active wound(Confirmed) HTN Active (hypertension)(Confi rmed) Klebsiella 06/03/15 Active pneumoniae(Confirmed )11, 12, 13 MRSA(Confirmed) Active MRSA(Confirmed)14, 05/27/15 Active 15 Nephrectomy(Confirme Active d) Neurogenic Active bladder(Confirmed) Pain(Confirmed) Active Paraplegia(Confirmed Active ) Pneumonia(Confirmed) Active (Improving) Removal of lacerated Active fragment of liver(Confirmed) Spinal cord Active decompression injury(Confirmed) Splenomegaly(Confirm Active ed) Urethral Active stent(Confirmed) UTI - Urinary tract Active infection(Confirmed) Vomiting(Confirmed) Active 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 5SACRUM, 05/27/2015 6URINE, 06/25/2014 710-13-12 E. COLI + ESBL: left & right foot wnd 8MDRO, URINE, 02/11/2012 9MDRO, URINE, 11/06/2011 10Problem added by Discern Expert. 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 14SACRUM, 05/27/2015 15Problem added by Discern Expert. 16RIGHT HIP, 06/02/2015 17URINE, 02/24/2012 18Problem added by Discern Expert. Allergies, Adverse Reactions, Alerts Substance Reaction Severity Status Latex Active naproxen Active NKFA Active traMADol Active Medications acetaminophen 650 mg, 2 tab, Route: PO, Drug form: TAB, Q4H, Dosing Weight 69.8, kg, PRN Pain 1-3/Temp > 100.4 F, Start date: 06/17/15 8:47:00, Duration: 30 day, Stop date: 07/17/15 8:46:00 Notes: Do not exceed 4 gm/day. (Same as: Tylenol) Start Date: 06/17/15 Stop Date: 06/21/15 Status: Discontinued acetaminophen-hydrocodone 325 mg-10 mg oral tablet 1 tab, Route: PO, Drug Form: TAB, Dosing Weight 69.8, kg, Q6H, PRN Pain Score 1- 5, Start date: 06/17/15 8:06:00, Duration: 30 day, Stop date: 07/17/15 8:05:00 Notes: Do not exceed 4gm/day of acetaminophen. (Same as: [place] 325/10) Start Date: 06/17/15 Stop Date: 06/21/15 Status: Discontinued ALPRAZOLam 0.5 mg, 1 tab, Route: PO, Drug form: TAB, TID, Dosing Weight 69.8, kg, PRN Anxie ty, Start date: 06/17/15 8:06:00, Duration: 30 day, Stop date: 07/17/15 8:05:00 Notes: With food or milk(Same as: Xanax) Start Date: 06/17/15 Stop Date: 06/21/15 Status: Discontinued amitriptyline 100 mg, 2 tab, Route: PO, Drug form: TAB, Bedtime, Dosing Weight 69.8, kg, Start date: 06/17/15 21:00:00, Duration: 30 day, Stop date: 07/16/15 21:00:00 Notes: (Same as: Elavil) Start Date: 06/17/15 Stop Date: 06/21/15 Status: Discontinued ascorbic acid 500 mg, 1 tab, Route: PO, Drug form: TAB, BID, Dosing Weight 69.8, kg, Start river e: 06/17/15 9:00:00, Duration: 30 day, Stop date: 07/16/15 17:00:00 Notes: (Same as: Vitamin C) Start Date: 06/17/15 Stop Date: 06/21/15 Status: Discontinued atropine-diphenoxylate 0.025 mg-2.5 mg oral tablet 1 tab, Route: PO, Drug Form: TAB, Dosing Weight 69.8, kg, Q6H, PRN Diarrhea, Sta rt date: 06/17/15 8:07:00, Duration: 30 day, Stop date: 07/17/15 8:06:00 Notes: (Same As: Lomotil) MAX Adult dose = 8 tabs/day Start Date: 06/17/15 Stop Date: 06/21/15 Status: Discontinued Cathflo Activase 2 mg injection 2 mg, 2 mL, Route: INJ, Drug form: INJ, ONCE, Dosing Weight 69.8, kg, Start date : 06/17/15 17:26:00, Stop date: 06/17/15 17:26:00 Notes: "Syringe for catheter clearance or interventional radiology use.Reconstit mayo each vial of Cathflo Activase with 2.2 ml Sterile Water resulting in a 1 mg/ ml solution. Stable for 8 hours only. (Same as: Activase) MEDICATION WASTE * Product Size: 2 mgProduct Wasted: ___ mg Start Date: 06/17/15 Stop Date: 06/17/15 Status: Completed Cubicin 279.2 mg, Route: IVPB, Q24H, Dosing Weight 69.8, kg, Start date: 06/19/15 13:00: 00, Duration: 30 day, Stop date: 07/18/15 13:00:00 Start Date: 06/19/15 Stop Date: 06/19/15 Status: Deleted Cubicin + Sodium Chloride 0.9% IV 100 mL 300 mg, Route: IVPB, Drug form: INJ, [id number], Start date: 06/19/15 15:00:00, Dur ation: 30 day, Stop date: 07/18/15 15:00:00 Notes: (Same As: Cubicin)Restricted use to Infectious Disease Physicians. M EDICATION WASTE Product Size: 500 mgProduct Wasted: ___ mg Start Date: 06/19/15 Stop Date: 06/21/15 Status: Discontinued Dakins Quarter Strength Solution 1 appl, Route: TOP, Drug Form: SOLN, Dosing Weight 69.8, kg, BID, Pack wound on right ischium lightly with quarter strength dakin's solution moistened gauze, fi lling space and secure with secondary dressing, change dressing every 12 ho urs x 7 day... Notes: (Dakin's (0.125%=1/4 strength) 473ml top SOLN) For external use only. No te: quarter strength = 0.125% sodium hypochlorite. Start Date: 06/19/15 Stop Date: 06/21/15 Status: Discontinued enoxaparin 30 mg, Route: SUB-Q, Drug form: INJ, [id number], Dosing Weight 69.8, kg, Start river e: 06/17/15 9:00:00, Duration: 30 day, Stop date: 07/16/15 21:00:00 Start Date: 06/17/15 Stop Date: 06/17/15 Status: Deleted gentamicin 320 mg, Route: IVPB, ONCE, Dosing Weight 69.8, kg, Start date: 06/19/15 12:31:00 , Stop date: 06/19/15 12:31:00 Start Date: 06/19/15 Stop Date: 06/19/15 Status: Deleted gentamicin + Sodium Chloride 0.9% IV 100 mL 320 mg, 8 mL, Route: IVPB, Drug form: INJ, ONCE, Start date: 06/19/15 15:00:00, Stop date: 06/19/15 15:00:00 Notes: TIME CRITICAL MEDICATION(Same as Garamycin) Start Date: 06/19/15 Stop Date: 06/19/15 Status: Completed Lovenox 40 mg, 0.4 mL, Route: SUB-Q, Drug form: INJ, [id number], Start date: 06/17/15 14:0 0:00, Duration: 30 day, Stop date: 07/16/15 14:00:00 Notes: (Same as: Lovenox) Start Date: 06/17/15 Stop Date: 06/21/15 Status: Discontinued Macrobid 100 mg, Route: PO, Drug form: CAP, Daily, Dosing Weight 69.8, kg, Start date: 9:00:00, Duration: 30 day, Stop date: 07/20/15 9:00:00 Start Date: 06/21/15 Stop Date: 06/21/15 Status: Deleted Macrobid 100 mg oral capsule 100 mg = 1 cap, PO, Daily, X 30 day, # 30 cap, 0 Refill(s) Start Date: 06/21/15 Stop Date: 06/21/15 Status: Discontinued Macrodantin 100 mg, 1 cap, Route: PO, Drug form: CAP, Q12H, Start date: 06/21/15 9:00:00, Du ration: 30 day, Stop date: 07/20/15 21:00:00 Notes: Not Recommended for patients with CrCl< 50 ml/minWith food (Same as:Macrodantin) Start Date: 06/21/15 Stop Date: 06/21/15 Status: Discontinued meropenem 500 mg, Route: IVPB, Drug form: PDR/INJ, [id number], Dosing Weight 69.8, kg, CrCL= 2 6 -49 ml/min, Extended infusion, infuse over 3 hours, Start date: 06/17/15 9:00 :00, Duration: 30 day, Stop date: 07/17/15 1:00:00 Start Date: 06/17/15 Stop Date: 06/17/15 Status: Deleted meropenem + Sodium Chloride 0.9% IV 100 mL 500 mg, Route: IV, ONCE, Dosing Weight 65.909, kg, Start date: 06/16/15 20:27:00 , Stop date: 06/16/15 20:27:00 Notes: Same as Merrem MEDICATION WASTE Product Size: 500 mgProduct Wast ed: ___ mg Start Date: 06/16/15 Stop Date: 06/16/15 Status: Completed meropenem + Sodium Chloride 0.9% IV 100 mL 500 mg, Route: IVPB, [id number], Start date: 06/17/15 14:00:00, Duration: 30 day, St op date: 07/17/15 10:00:00 Notes: Same as Merrem MEDICATION WASTE Product Size: 500 mgProduct Wast ed: ___ mg Start Date: 06/17/15 Stop Date: 06/21/15 Status: Discontinued methadone 10 mg, 1 tab, Route: PO, Drug form: TAB, Q12H, Dosing Weight 69.8, kg, PRN Pain Score 6-10, Start date: 06/17/15 8:07:00, Duration: 30 day, Stop date: 07/17/15 8:06:00 Notes: (Same as: Dolophine) Start Date: 06/17/15 Stop Date: 06/21/15 Status: Discontinued morphine Sulfate 4 mg, 1 mL, Route: IVP, Drug form: INJ, ONCE, Dosing Weight 65.909, kg, Priority : STAT, Start date: 06/16/15 19:15:00, Stop date: 06/16/15 19:15:00 Notes: (Same as:MORPhine Sulfate) Start Date: 06/16/15 Stop Date: 06/16/15 Status: Completed morphine Sulfate 2 mg, 1 mL, Route: IVP, Drug form: INJ, Q4H, Dosing Weight 69.8, kg, PRN Pain Sc ore 7-10, Start date: 06/17/15 8:47:00, Duration: 30 day, Stop date: 07/17/15 8: 46:00 Notes: (Same as:MORPhine Sulfate) Start Date: 06/17/15 Stop Date: 06/21/15 Status: Discontinued morphine Sulfate 4 mg, 1 mL, Route: IVP, Drug form: INJ, ONCE, Dosing Weight 69.8, kg, Start date : 06/17/15 1:31:00, Stop date: 06/17/15 1:31:00 Notes: (Same as:MORPhine Sulfate) Start Date: 06/17/15 Stop Date: 06/17/15 Status: Completed nicotine 14 mg, 1 patch, Route: Transdermal, Drug form: ERFILM, Daily, Dosing Weight 69.8 , kg, Start date: 06/17/15 13:33:00, Duration: 30 day, Stop date: 07/17/15 9:00: 00 Notes: (Same as: Habitrol)"Remove old patch before application of new patch" Start Date: 06/17/15 Stop Date: 06/21/15 Status: Discontinued nicotine 2 mg oral transmucosal gum 2 mg = 1 ea, CHEW, Q2H, PRN for smoking cessation, # 50 ea, 0 Refill(s) Start Date: 06/16/15 Stop Date: 06/20/15 Status: Ordered ondansetron 4 mg, 2 mL, Route: IVP, Drug form: INJ, Q6H, Dosing Weight 69.8, kg, PRN Nausea & Vomiting, Start date: 06/17/15 8:47:00, Duration: 30 day, Stop date: 07/17/15 8:46:00 Notes: (Same as: Klaus) MEDICATION WASTE Product Size: 4 mgProduct Was reinaldo: ___ mg Start Date: 06/17/15 Stop Date: 06/21/15 Status: Discontinued Saline Flush 0.9% 10 ml, Route: IVP, Drug Form: INJ, Dosing Weight 69.8, kg, PRN, PRN Line Flush, Start date: 06/17/15 8:47:00, Duration: 30 day, Stop date: 07/17/15 8:46:00 Start Date: 06/17/15 Stop Date: 06/17/15 Status: Deleted Saline Flush 0.9% 10 mL, Route: IVP, Drug Form: INJ, Dosing Weight 65.909, kg, PRN, PRN Line Flush , Start date: 06/16/15 18:46:00, Duration: 30 day, Stop date: 07/16/15 18:45:00 Notes: (Same as: BD Posiflush) Start Date: 06/16/15 Stop Date: 06/21/15 Status: Discontinued Saline Flush 0.9% 10 mL, Route: IVP, Drug Form: INJ, Dosing Weight 65.909, kg, PRN, PRN Line Flush , Start date: 06/16/15 18:45:00, Duration: 30 day, Stop date: 07/16/15 18:44:00 Notes: (Same as: BD Posiflush) Start Date: 06/16/15 Stop Date: 06/21/15 Status: Discontinued Sodium Chloride 0.9% IV 1,000 mL 1,000 mL, Rate: 75 ml/hr, Infuse over: 13.3 hr, Route: IV, Dosing Weight 69.8 kg , Total Volume: 1,000, Start date: 06/17/15 8:47:00, Duration: 30 day, Stop date : 07/17/15 8:46:00 Start Date: 06/17/15 Stop Date: 06/21/15 Status: Discontinued Test tab Test tab, 1 tab, Drug form: MISC, Route: PO, Daily, 06/18/15 9:00:00, Duration: 30 day, Stop date: 07/17/15 9:00:00 Start Date: 06/18/15 Stop Date: 06/17/15 Status: Deleted vancomycin 1.25 gm, 250 mL, Route: IVPB, Drug form: INJ, ONCE, Dosing Weight 65.909, kg, Pr iority: STAT, Start date: 06/16/15 20:25:00, Stop date: 06/16/15 20:25:00 Notes: TIME CRITICAL MEDICATIONSame as: Vancocin-NS (premixed)Infusion rate< 1000 mg: infuse over 1 [id number] - 1500 mg: infuse over 1.5 [id number] - 2000 mg: infuse over 2 hours> 2001 mg: infuse over 2.5 hours Start Date: 06/16/15 Stop Date: 06/16/15 Status: Completed vancomycin 1 gm, Route: IVPB, Drug form: INJ, [id number], Dosing Weight 69.8, kg, Start date: 06/17/15 9:00:00, Duration: 30 day, Stop date: 07/16/15 21:00:00 Start Date: 06/17/15 Stop Date: 06/17/15 Status: Deleted vancomycin + Sodium Chloride 0.9% IV 250 mL 1 gm, Route: IVPB, [id number], Start date: 06/17/15 14:00:00, Duration: 30 day, Sto p date: 07/17/15 2:00:00 Notes: TIME CRITICAL MEDICATION(Same As: Vancocin)Infusion rate< 1000 mg: infuse over 1 [id number] - 1500 mg: infuse over 1.5 [id number] - 2000 mg: infuse over 2 hours> 2001 mg: infuse over 2.5 hours MEDICATION WASTE Product Size: 1000 mgProduct Wasted: ___ mg Start Date: 06/17/15 Stop Date: 06/19/15 Status: Discontinued zinc sulfate 220 mg, 1 cap, Route: PO, Drug form: CAP, Daily, Dosing Weight 69.8, kg, Start d ate: 06/18/15 9:00:00, Duration: 30 day, Stop date: 07/17/15 9:00:00 Notes: (Zinc sulfate capsule) - 220 mg Zinc sulfate = 50 mg elemental zinc Same as Zinc Sulfate Start Date: 06/18/15 Stop Date: 06/21/15 Status: Discontinued Zyvox 600 mg oral tablet 600 mg = 1 tab, PO, Q12H, X 10 day, # 20 tab, 0 Refill(s) Start Date: 06/21/15 Stop Date: 07/01/15 Status: Ordered Results ELECTROLYTES 1 2 3 Most recent to oldest [Reference Range]: 140 mEq/L (06/21/15 5:15 AM) 138 mEq/L (06/20/15 6:13 AM) 140 mEq/L (06/19/15 6:04 AM) Sodium Lvl [135-145 mEq/L] 4.8 mEq/L (06/21/15 5:15 AM) 4.7 mEq/L (06/20/15 6:13 AM) 4.6 mEq/L (06/19/15 6:04 AM) Potassium Lvl [3.5-5.1 mEq/L] 105 mEq/L (06/21/15 5:15 AM) 103 mEq/L (06/20/15 6:13 AM) 106 mEq/L (06/19/15 6:04 AM) Chloride Lvl [95-109 mEq/L] 27 mEq/L (06/21/15 5:15 AM) 30 mEq/L (06/20/15 6:13 AM) 27 mEq/L (06/19/15 6:04 AM) CO2 [24-32 mEq/L] 12.8 mEq/L (06/21/15 5:15 AM) 9.7 mEq/L *LOW* (06/20/15 6:13 AM) 11.6 mEq/L (06/19/15 6:04 AM) AGAP [10.0-20.0 mEq/L] CHEM PANEL 1 2 3 Most recent to oldest [Reference Range]: 0.85 mg/dL (06/21/15 5:15 AM) 1.02 mg/dL (06/20/15 6:13 AM) 1.02 mg/dL (06/19/15 6:04 AM) Creatinine Lvl [0.50-1.40 mg/dL] 117 mL/min/1.73m2 1 *NA* (06/21/15 5:15 AM) 98 mL/min/1.73m2 2 *NA* (06/20/15 6:13 AM) 98 mL/min/1.73m2 3 *NA* (06/19/15 6:04 AM) eGFR 19 mg/dL (06/21/15 5:15 AM) 18 mg/dL (06/20/15 6:13 AM) 16 mg/dL (06/19/15 6:04 AM) BUN [7-22 mg/dL] 74 mg/dL (06/21/15 5:15 AM) 80 mg/dL (06/20/15 6:13 AM) 95 mg/dL (06/19/15 6:04 AM) Glucose Lvl [70-99 mg/dL] 7.3 g/dL (06/21/15 5:15 AM) Total Protein [6.4-8.4 g/dL] 2.2 g/dL *LOW* (06/21/15 5:15 AM) Albumin Lvl [3.5-5.0 g/dL] 5.1 g/dL *HI* (06/21/15 5:15 AM) Globulin [2.0-4.0 g/dL] 0.4 *LOW* (06/21/15 5:15 AM) A/G Ratio [0.7-1.6] 9.1 mg/dL (06/21/15 5:15 AM) 9.1 mg/dL (06/20/15 6:13 AM) 9.0 mg/dL (06/19/15 6:04 AM) Calcium Lvl [8.5-10.5 mg/dL] 4.4 mg/dL (06/18/15 5:58 AM) Phosphorus [2.5-4.5 mg/dL] 1.8 mg/dL (06/18/15 5:58 AM) Magnesium Lvl [1.8-2.4 mg/dL] 39 unit/L (06/21/15 5:15 AM) ALT [0-65 unit/L] 33 unit/L (06/21/15 5:15 AM) AST [0-37 unit/L] 127 unit/L (06/21/15 5:15 AM) Alk Phos [39-136 unit/L] 0.5 mg/dL (06/21/15 5:15 AM) Bili Total [0.2-1.3 mg/dL] 0.1 mg/dL (06/21/15 5:15 AM) Bili Direct [0.0-0.3 mg/dL] 0.4 mg/dL (06/21/15 5:15 AM) Bili Indirect [0.0-1.0 mg/dL] 2.6 mMol/L *HI* (06/16/15 7:01 PM) Lactic Acid Lvl [0.5-2.2 mMol/L] <0.05 ng/mL (06/16/15 7:01 PM) Procalcitonin Lvl [0.00-0.10 ng/mL] 1Result [...] 3 Most recent to oldest [Reference Range]: 29 unit/L (06/20/15 6:13 AM) Total CK [12-191 unit/L] TOXICOLOGY 1 2 3 Most recent to oldest [Reference Range]: 0.4 ug/ml *NA* (06/21/15 5:15 AM) 2.6 ug/ml *NA* (06/20/15 6:13 AM) Gent Lvl URINE AND STOOL 1 2 3 Most recent to oldest [Reference Range]: Marked *ABN* (06/16/15 7:01 PM) UA Turbidity [Clear] Yellow *NA* (06/16/15 7:01 PM) UA Color [Yellow] 6.0 (06/16/15 7:01 PM) UA pH [5.0-8.0] 1.011 (06/16/15 7:01 PM) UA Spec Grav [<=1.030] Negative mg/dL *NA* (06/16/15 7:01 PM) UA Glucose [Negative mg/dL] Negative (06/16/15 7:01 PM) UA Blood [Negative] Negative *NA* (06/16/15 7:01 PM) UA Ketones 30 mg/dL *ABN* (06/16/15 7:01 PM) UA Protein [Negative mg/dL] <=1.0 mg/dL *NA* (06/16/15 7:01 PM) UA Urobilinogen [0.1-1.0 mg/dL] Negative *NA* (06/16/15 7:01 PM) UA Bili [Negative] Large *ABN* (06/16/15 7:01 PM) UA Leuk Est [Negative] Negative (06/16/15 7:01 PM) UA Nitrite [Negative] >182 /HPF *HI* (06/16/15 7:01 PM) UA WBC [0-5 /HPF] 19 /HPF *HI* (06/16/15 7:01 PM) UA RBC [0-2 /HPF] Few /HPF *NA* (06/16/15 7:01 PM) UA Bacteria [None Seen /HPF] Few /LPF *NA* (06/16/15 7:01 PM) UA Sq Epi [Few /LPF] IMMUNOLOGY 1 2 3 Most recent to oldest [Reference Range]: 139.0 mg/L *HI* (06/16/15 7:01 PM) CRP [<=2.9 mg/L] HEMATOLOGY 1 2 3 Most recent to oldest [Reference Range]: 8.4 K/CMM (06/21/15 5:15 AM) 7.1 K/CMM (06/20/15 6:13 AM) 6.5 K/CMM (06/19/15 9:32 AM) WBC [3.7-10.4 K/CMM] 3.69 M/CMM *LOW* (06/21/15 5:15 AM) 3.74 M/CMM *LOW* (06/20/15 6:13 AM) 3.38 M/CMM *LOW* (06/19/15 9:32 AM) RBC [4.70-6.10 M/CMM] 9.9 g/dL *LOW* (06/21/15 5:15 AM) 9.9 g/dL *LOW* (06/20/15 6:13 AM) 9.0 g/dL *LOW* (06/19/15 9:32 AM) Hgb [14.0-18.0 g/dL] 31.0 % *LOW* (06/21/15 5:15 AM) 31.2 % *LOW* (06/20/15 6:13 AM) 28.3 % *LOW* (06/19/15 9:32 AM) Hct [42.0-54.0 %] 84.2 fL (06/21/15 5:15 AM) 83.6 fL (06/20/15 6:13 AM) 83.5 fL (06/19/15 9:32 AM) MCV [80.0-94.0 fL] 26.9 pg *LOW* (06/21/15 5:15 AM) 26.6 pg *LOW* (06/20/15 6:13 AM) 26.6 pg *LOW* (06/19/15 9:32 AM) MCH [27.0-31.0 pg] 31.9 g/dL *LOW* (06/21/15 5:15 AM) 31.8 g/dL *LOW* (06/20/15 6:13 AM) 31.8 g/dL *LOW* (06/19/15 9:32 AM) MCHC [32.0-36.0 g/dL] 20.4 % *HI* (06/21/15 5:15 AM) 19.6 % *HI* (06/20/15 6:13 AM) 19.7 % *HI* (06/19/15 9:32 AM) RDW [11.5-14.5 %] 559 K/CMM *HI* (06/21/15 5:15 AM) 513 K/CMM *HI* (06/20/15 6:13 AM) 552 K/CMM *HI* (06/19/15 9:32 AM) Platelet [133-450 K/CMM] 6.9 fL *LOW* (06/21/15 5:15 AM) 6.7 fL *LOW* (06/20/15 6:13 AM) 7.2 fL *LOW* (06/19/15 9:32 AM) MPV [7.4-10.4 fL] 51.2 % (06/21/15 5:15 AM) 40.1 % *LOW* (06/20/15 6:13 AM) 45.4 % (06/19/15 9:32 AM) Segs [45.0-75.0 %] 32.6 % (06/21/15 5:15 AM) 38.8 % (06/20/15 6:13 AM) 36.4 % (06/19/15 9:32 AM) Lymphocytes [20.0-40.0 %] 8.9 % (06/21/15 5:15 AM) 13.5 % *HI* (06/20/15 6:13 AM) 12.1 % *HI* (06/19/15 9:32 AM) Monocytes [2.0-12.0 %] 6.7 % *HI* (06/21/15 5:15 AM) 6.9 % *HI* (06/20/15 6:13 AM) 5.5 % *HI* (06/19/15 9:32 AM) Eosinophils [0.0-4.0 %] 0.6 % (06/21/15 5:15 AM) 0.7 % (06/20/15 6:13 AM) 0.6 % (06/19/15 9:32 AM) Basophils [0.0-1.0 %] 4.3 K/CMM (06/21/15 5:15 AM) 2.8 K/CMM (06/20/15 6:13 AM) 3.0 K/CMM (06/19/15 9:32 AM) Segs-Bands # [1.5-8.1 K/CMM] 2.7 K/CMM (06/21/15 5:15 AM) 2.7 K/CMM (06/20/15 6:13 AM) 2.4 K/CMM (06/19/15 9:32 AM) Lymphocytes # [1.0-5.5 K/CMM] 0.8 K/CMM (06/21/15 5:15 AM) 1.0 K/CMM *HI* (06/20/15 6:13 AM) 0.8 K/CMM (06/19/15 9:32 AM) Monocytes # [0.0-0.8 K/CMM] 0.6 K/CMM *HI* (06/21/15 5:15 AM) 0.5 K/CMM (06/20/15 6:13 AM) 0.4 K/CMM (06/19/15 9:32 AM) Eosinophils # [0.0-0.5 K/CMM] 0.0 K/CMM (06/21/15 5:15 AM) 0.0 K/CMM (06/19/15 9:32 AM) 0.1 K/CMM (06/16/15 7:01 PM) Basophils # [0.0-0.2 K/CMM] Normal (06/18/15 5:58 AM) RBC Morph Normal (06/18/15 5:58 AM) Plt Morph >100 mm/hr *HI* (06/21/15 5:15 AM) Sed Rate [0-15 mm/hr] 14.2 seconds (06/18/15 5:58 AM) PT [12.0-14.7 seconds] 1.07 (06/18/15 5:58 AM) INR [0.85-1.17] 38.9 seconds *HI* (06/18/15 5:58 AM) PTT [22.9-35.8 seconds] Immunizations Vaccine Date Refusal Reason influenza virus vaccine, inactivated 05/28/15 influenza virus vaccine, inactivated 05/16/12 pneumococcal 23-valent vaccine 05/16/12 Procedures Procedure Date Related Diagnosis Body Site INCISION AND DEBRIDEMENT RIGHT HIP WOUND 06/03/15 Colonoscopy 2009 Nephrectomy 2006 Amputation1 Laparoscopy Wound care 1amputation of left 5th toe. Social History Social History Type Response Alcohol Past, Type Beer. Ready to change: Yes. Smoking Status Current every day smoker; E xposure to Tobacco Smoke None; Cigarette Smoking Last 365 Days No; Reg Smoking Cessation Counseling Yes Assessment and Plan No data available for this section
--- OUTSIDE RECORDS SUMMARY | 2020-03-18 10:21 | XMS REPORT | Summary of Care ---
Author Author [facility] Organization [facility] Address Unknown Phone Unavailable Encounter MOJGAN Jacques(AMARI) [id number] Date(s): 09/12/15 - 10/16/15 [facility] [address] [place] [address]- Discharge Disposition: Acute Care Attending Physician: Yaya Ballard MD Admitting Physician: Yaya Ballard MD Referring Physician: Litzy Ac MD Vital Signs 1 2 3 Most recent to oldest [Reference Range]: 182.88 cm (09/13/15 2:21 PM) 182.88 cm (09/13/15 8:43 AM) 182.88 cm (09/13/15 8:37 AM) Height 98.5 DegF (10/16/15 3:27 PM) 98.5 DegF (10/16/15 12:30 PM) 97.6 DegF (10/16/15 7:37 AM) Temperature Oral [96.4-99.1 DegF] 104/69 mmHg (10/16/15 3:27 PM) 103/72 mmHg (10/16/15 12:30 PM) 100/65 mmHg (10/16/15 7:37 AM) Blood Pressure [90-140/60-90 mmHg] 20 BRMIN (10/16/15 3:27 PM) 20 BRMIN (10/16/15 12:30 PM) 20 BRMIN (10/16/15 7:37 AM) Respiratory Rate [14-20 BRMIN] 111 bpm *HI* (10/16/15 3:27 PM) 107 bpm *HI* (10/16/15 12:30 PM) 107 bpm *HI* (10/16/15 7:37 AM) Peripheral Pulse Rate [60-100 bpm] 69.574 kg (09/13/15 2:21 PM) 65.909 kg (09/13/15 8:43 AM) 65.909 kg (09/13/15 8:37 AM) Weight 20.8 m2 (09/13/15 2:21 PM) 19.71 m2 (09/13/15 8:43 AM) 19.71 m2 (09/13/15 8:37 AM) Body Mass Index Problem List Condition [...] URINE, 11/06/2011 11Problem added by Discern Expert. 12Blood, 10/07/2015 13R. klebsiella pneumon isolated [...] naproxen Active NKFA Active traMADol Active Medications 1/2NS + KCL 20mEq/L 1000ml (Premix) 1,000 mL 1,000 mL, Rate: 125 ml/hr, Infuse over: 8 hr, Route: IV, Dosing Weight 69.574 kg , Total Volume: 1,000, Start date: 10/02/15 0:00:00, Duration: 30 day, Stop date : 10/31/15 23:59:00 Notes: PREMIX IV - Do Not AlterWASTE: F/P - Sink; E - Municipal Trash Bin Start Date: 10/02/15 Stop Date: 10/01/15 Status: Discontinued acetaminophen 1,000 mg, Route: IV, ONCE, Dosing Weight 69.574, kg, Start date: 10/06/15 15:13: 00, Stop date: 10/06/15 15:13:00 Start Date: 10/06/15 Stop Date: 10/06/15 Status: Completed acetaminophen 325 mg oral tablet 650 mg = 2 tab, PO, Q6H, PRN For Temp > 100.4 F, 0 Refill(s) Start Date: 10/16/15 Status: Suspended acetaminophen-hydrocodone 325 mg-10 mg oral tablet 1 tab, Route: PO, Drug Form: TAB, Q6H, PRN Other -See Comment, Start date: 09/27 13:00:00, Stop date: 10/27/15 12:59:00 Notes: Do not exceed 4gm/day of acetaminophen. (Same as: [place] 325/10) Start Date: 09/27/15 Stop Date: 09/28/15 Status: Discontinued acetaminophen-hydrocodone 325 mg-10 mg oral tablet 2 tab, PO, Q6H, PRN Other -See Comment, 0 Refill(s) Start Date: 10/16/15 Status: Suspended acetaminophen-hydrocodone 325 mg-10 mg oral tablet 2 tab, Route: PO, Drug Form: TAB, Q6H, PRN Other -See Comment, Start date: 09/28 14:09:00, Duration: 30 day, Stop date: 10/28/15 14:08:00 Notes: Do not exceed 4gm/day of acetaminophen. (Same as: [place] 325/10) Start Date: 09/28/15 Stop Date: 10/16/15 Status: Discontinued acetaminophen-hydrocodone 325 mg-5 mg oral tablet 2 tab, Route: PO, Drug Form: TAB, Dosing Weight 69.574, kg, Q4H, PRN Pain Score 7-10, Start date: 09/14/15 19:26:00, Duration: 30 day, Stop date: 10/14/15 19:25 :00 Notes: (Same as: [place] 325/5) Do not exceed 4gm/day of acetaminophen. Start Date: 09/14/15 Stop Date: 09/22/15 Status: Discontinued albuterol 0.083% inhalation solution 2.5 mg, 3.01 mL, Route: NEB, Drug form: SOLN, ONCE, Dosing Weight 69.574, kg, St art date: 09/18/15 15:16:00, Stop date: 09/18/15 15:16:00 Notes: SEE RT DOCUMENTATION (Same as: Katie) Start Date: 09/18/15 Stop Date: 09/18/15 Status: Completed ALPRAZOLam 1 mg oral tablet 2 mg = 2 tab, PO, TID, 0 Refill(s) Start Date: 10/16/15 Status: Suspended ALPRAZOLam 2 mg oral tablet 2 mg = 1 tab, PO, BID, 0 Refill(s) Start Date: 09/13/15 Stop Date: 10/16/15 Status: Discontinued ALPRAZOLam 2 mg oral tablet 2 mg, 2 tab, Route: PO, Drug form: TAB, Q12H, Dosing Weight 69.574, kg, Start da te: 09/14/15 22:00:00, Duration: 30 day, Stop date: 10/14/15 21:00:00 Notes: With food or milk(Same as: Xanax) Start Date: 09/14/15 Stop Date: 09/21/15 Status: Discontinued amikacin + Sodium Chloride 0.9% IV 250 mL 696 mg, 2.78 mL, Route: IVPB, Drug form: INJ, ONCE, Dosing Weight 69.574, kg, Pr iority: STAT, Start date: 10/11/15 12:09:00, Stop date: 10/11/15 12:09:00 Notes: TIME CRITICAL MEDICATION(Same as: Amikin) MEDICATION WASTE Produc t Size: 1000 mgProduct Wasted: ___ mg Start Date: 10/11/15 Stop Date: 10/11/15 Status: Completed amitriptyline 50 mg, 1 tab, Route: PO, Drug form: TAB, Bedtime, Dosing Weight 69.574, kg, Star t date: 09/14/15 21:00:00, Duration: 30 day, Stop date: 11/12/15 21:00:00 Notes: (Same as: Elavil) Start Date: 09/14/15 Stop Date: 10/16/15 Status: Discontinued amitriptyline 50 mg oral tablet 50 mg = 1 tab, PO, Bedtime, 0 Refill(s) Start Date: 10/16/15 Status: Suspended atropine 0.2 mg, 0.5 mL, Route: IVP, Drug form: INJ, Q5Min, Dosing Weight 69.574, kg, PRN Other -See Comment, as needed; for symptomatic pulse rate < 80% of mean 50 BPM, Start date: 10/02/15 10:15:00, Duration: 30 day, Stop date: 11/01/15 11:14:00 Notes: MEDICATION WASTE Product Size: 0.4 mgProduct Wasted: ___ mg Start Date: 10/02/15 Stop Date: 10/02/15 Status: Discontinued atropine 0.2 mg, 0.5 mL, Route: IVP, Drug form: INJ, Q5Min, Dosing Weight 69.574, kg, PRN Other -See Comment, as needed; for symptomatic pulse rate < 80% of mean 50 BPM, Start date: 10/09/15 14:52:00, Duration: 30 day, Stop date: 11/08/15 15:51:00 Notes: MEDICATION WASTE Product Size: 0.4 mgProduct Wasted: ___ mg Start Date: 10/09/15 Stop Date: 10/09/15 Status: Discontinued Avycaz 2 g-0.5 g intravenous injection 2.5 gm =, IV, Q8H, # 10 bag, 0 Refill(s), other Start Date: 10/16/15 Stop Date: 10/19/15 Status: Suspended baclofen 10 mg, 0.5 tab, Route: PO, Drug form: TAB, Q6H, Dosing Weight 69.574, kg, Start date: 10/05/15 12:00:00, Duration: 30 day, Stop date: 11/04/15 6:00:00 Notes: (Same As: Lillie) Start Date: 10/05/15 Stop Date: 10/16/15 Status: Discontinued baclofen 10 mg, 1 tab, Route: PO, Drug form: TAB, Q6H, Dosing Weight 69.574, kg, Start da te: 09/15/15 0:00:00, Duration: 30 day, Stop date: 10/14/15 18:00:00 Notes: (Same As: Lillie) Start Date: 09/15/15 Stop Date: 10/05/15 Status: Discontinued baclofen 20 mg oral tablet 10 mg = 0.5 tab, PO, Q6H, 0 Refill(s) Start Date: 10/16/15 Status: Suspended BD Normal Saline Flush 10 mL, Route: IVP, Drug Form: INJ, PRN, PRN Line Flush, Start date: 10/10/15 16: 19:00, Duration: 30 day, Stop date: 11/09/15 17:18:00 Notes: (Same as: BD Posiflush) Start Date: 10/10/15 Stop Date: 10/16/15 Status: Discontinued busPIRone 5 mg, 1 tab, Route: PO, Drug form: TAB, TID, Dosing Weight 69.574, kg, Start jonathon e: 09/15/15 9:00:00, Duration: 30 day, Stop date: 10/14/15 17:00:00 Notes: (Same As: BuSpar) Start Date: 09/15/15 Stop Date: 09/28/15 Status: Voided With Results ceFAZolin 2 gm, 100 mL, Route: IVPB, Drug form: INJ, ONCALL, Dosing Weight 69.574, kg, Sta rt date: 10/09/15 8:00:00, Duration: 30 day, Stop date: 11/08/15 8:59:00 Notes: Same as: Ancef Start Date: 10/09/15 Stop Date: 10/10/15 Status: Discontinued ceftazidime-avibactam + Sodium Chloride 0.9% IV 100 mL 2.5 gm, Route: IV, [id number], Dosing Weight 69.574, kg, Start date: 10/12/15 18:00: 00, Duration: 7 day, Stop date: 10/19/15 10:00:00 Notes: (Same as: Avycaz)Non-formulary Start Date: 10/12/15 Stop Date: 10/16/15 Status: Discontinued colistimethate + Sodium Chloride 0.9% IV 100 mL 150 mg, Route: IVPB, [id number], Dosing Weight 69.574, kg, Start date: 10/11/15 14: 00:00, Duration: 30 day, Stop date: 11/09/15 14:00:00 Notes: (Same As: Coly-Mycin) Start Date: 10/11/15 Stop Date: 10/11/15 Status: Canceled colistimethate + Sodium Chloride 0.9% IV 100 mL 150 mg, Route: IVPB, [id number], Start date: 10/08/15 1:00:00, Duration: 30 day, St op date: 11/06/15 13:00:00 Notes: (Same As: Coly-Mycin) Start Date: 10/08/15 Stop Date: 10/10/15 Status: Discontinued collagenase topical 1 appl, Route: TOP, Daily, Drug form: OINT, Start date: 09/15/15 9:00:00, Durati on: 30 day, Stop date: 11/13/15 9:00:00 Notes: (Same As: Santyl) Start Date: 09/15/15 Stop Date: 10/16/15 Status: Discontinued collagenase topical 1 appl, TOP, Daily, 0 Refill(s) Start Date: 10/16/15 Status: Suspended Dilaudid 4 mg, 2 tab, Route: PO, Drug form: TAB, Q4H, Dosing Weight 69.574, kg, PRN Pain Score 7-10, Start date: 09/22/15 17:38:00, Duration: 30 day, Stop date: 10/22/15 17:37:00 Notes: (Same as: Dilaudid) Start Date: 09/22/15 Stop Date: 09/26/15 Status: Discontinued Dilaudid 1 mg, 1 mL, Route: IV, Drug form: INJ, Q3H, Dosing Weight 69.574, kg, PRN Other -See Comment, Start date: 09/18/15 15:44:00, Stop date: 10/18/15 15:43:00 Start Date: 09/18/15 Stop Date: 09/22/15 Status: Discontinued Dilaudid 4 mg, 2 tab, Route: PO, Drug form: TAB, Q6H, Dosing Weight 69.574, kg, PRN Pain Score 7-10, Start date: 10/03/15 9:23:00, Duration: 30 day, Stop date: 11/02/15 9:22:00 Notes: (Same as: Dilaudid) Start Date: 10/03/15 Stop Date: 10/16/15 Status: Discontinued docusate sodium 50 mg oral capsule 50 mg, 1 cap, Route: PO, Drug form: CAP, BID, PRN Constipation, Start date: 09/04 08/19 19:52:00, Duration: 30 day, Stop date: 11/13/15 19:51:00 Notes: (Same as: Colace) (Do Not Crush) Start Date: 09/14/15 Stop Date: 10/16/15 Status: Discontinued docusate-senna 50 mg-8.6 mg oral tablet 1 tab, Route: PO, Drug Form: TAB, Dosing Weight 69.574, kg, BID, PRN Constipatio n, Start date: 09/14/15 19:28:00, Duration: 30 day, Stop date: 10/14/15 19:27:00 Start Date: 09/14/15 Stop Date: 09/14/15 Status: Deleted doxycycline + Sodium Chloride 0.9% IV 100 mL 100 mg, Route: IVPB, [id number], Dosing Weight 69.574, kg, Priority: STAT, Start da te: 10/10/15 16:03:00, Duration: 30 day, Stop date: 11/09/15 4:03:00 Notes: (Same as: Vibramycin) Start Date: 10/10/15 Stop Date: 10/12/15 Status: Discontinued enoxaparin 40 mg/0.4 mL subcutaneous solution 40 mg = 0.4 mL, SUB-Q, [id number], 0 Refill(s) Start Date: 10/16/15 Status: Suspended epoetin geetha 10,000 units/mL preservative-free injectable solution 7,000 unit = 0.7 mL, SUB-Q, Q-M-W-F, 0 Refill(s) Start Date: 10/16/15 Status: Suspended Epogen 10,000 unit, Route: SUB-Q, Q-M-W-F, Dosing Weight 69.574, kg, Start date: 9:00:00, Duration: 30 day, Stop date: 10/30/15 9:00:00 Start Date: 10/02/15 Stop Date: 10/01/15 Status: Deleted fluconazole 200 mg, 1 tab, Route: PO, Drug form: TAB, [id number], Dosing Weight 69.574, kg, Sta rt date: 09/14/15 20:00:00, Duration: 30 day, Stop date: 10/13/15 20:00:00 Notes: (Same as: Diflucan) Start Date: 09/14/15 Stop Date: 09/14/15 Status: Discontinued fluconazole 200 mg, 1 tab, Route: PO, Drug form: TAB, [id number], Dosing Weight 69.574, kg, Sta rt date: 09/25/15 20:00:00, Duration: 30 day, Stop date: 10/24/15 20:00:00 Notes: (Same as: Diflucan) Start Date: 09/25/15 Stop Date: 10/10/15 Status: Discontinued flumazenil 0.2 mg, 2 mL, Route: IVP, Drug form: INJ, PRN, Dosing Weight 69.574, kg, PRN Didier zodiazepine Reversal, Initial dose, Start date: 10/02/15 10:15:00, Duration: 30 day, Stop date: 11/01/15 11:14:00 Notes: (Same as: Romazicon) Start Date: 10/02/15 Stop Date: 10/02/15 Status: Discontinued flumazenil 0.2 mg, 2 mL, Route: IVP, Drug form: INJ, PRN, Dosing Weight 69.574, kg, PRN Didier zodiazepine Reversal, Initial dose, Start date: 10/06/15 14:50:00, Duration: 30 day, Stop date: 11/05/15 15:49:00 Notes: (Same as: Romazicon) Start Date: 10/06/15 Stop Date: 10/06/15 Status: Discontinued flumazenil 0.2 mg, 2 mL, Route: IVP, Drug form: INJ, PRN, Dosing Weight 69.574, kg, PRN Didier zodiazepine Reversal, Initial dose, Start date: 10/09/15 14:52:00, Duration: 30 day, Stop date: 11/08/15 15:51:00 Notes: (Same as: Romazicon) Start Date: 10/09/15 Stop Date: 10/09/15 Status: Discontinued gabapentin 100 mg oral capsule 100 mg = 1 cap, PO, Q8H, 0 Refill(s) Start Date: 10/16/15 Status: Suspended gabapentin 100 mg oral capsule 100 mg, 1 cap, Route: PO, Drug form: CAP, Q8H, Dosing Weight 69.574, kg, Start d ate: 10/03/15 10:00:00, Duration: 30 day, Stop date: 11/02/15 8:00:00 Notes: (Same as: Neurontin) Start Date: 10/03/15 Stop Date: 10/16/15 Status: Discontinued hydrALAZINE 10 mg, 0.5 mL, Route: IVP, Drug form: INJ, Q20Min, Dosing Weight 69.574, kg, PRN Elevated BP, Start date: 10/02/15 10:15:00, Duration: 2 doses or times, Stop da te: Limited # of times Notes: (Same as: Apresoline)Push over 5 minutes Start Date: 10/02/15 Stop Date: 10/02/15 Status: Discontinued hydrALAZINE 10 mg, 0.5 mL, Route: IVP, Drug form: INJ, Q20Min, Dosing Weight 69.574, kg, PRN Elevated BP, Start date: 10/09/15 14:52:00, Duration: 2 doses or times, Stop da te: Limited # of times Notes: (Same as: Apresoline)Push over 5 minutes Start Date: 10/09/15 Stop Date: 10/09/15 Status: Discontinued hydromorphone 0.5 mg, 0.5 mL, Route: IVP, Drug form: INJ, Q5Min, Dosing Weight 69.574, kg, PRN Pain Score 7-10, Start date: 10/02/15 10:15:00, Duration: 4 doses or times, Stop date: Limited # of times Start Date: 10/02/15 Stop Date: 10/02/15 Status: Discontinued hydromorphone 1 mg, 1 mL, Route: IVP, Drug form: INJ, Q6H, PRN Other -See Comment, Start date: 09/28/15 17:21:00, Duration: 30 day, Stop date: 10/28/15 17:20:00 Start Date: 09/28/15 Stop Date: 10/16/15 Status: Discontinued hydromorphone 0.5 mg, 0.5 mL, Route: IVP, Drug form: INJ, Q5Min, Dosing Weight 69.574, kg, PRN Pain Score 7-10, Start date: 10/06/15 14:50:00, Duration: 4 doses or times, Stop date: Limited # of times Start Date: 10/06/15 Stop Date: 10/06/15 Status: Discontinued hydromorphone 0.5 mg, 0.5 mL, Route: IVP, Drug form: INJ, Q5Min, Dosing Weight 69.574, kg, PRN Pain Score 7-10, Start date: 10/09/15 14:52:00, Duration: 4 doses or times, Stop date: Limited # of times Start Date: 10/09/15 Stop Date: 10/09/15 Status: Discontinued hydromorphone 100 mg/100 mL-NaCl 0.9% intravenous solution 1 mg = 1 mL, IVP, Q6H, PRN Other -See Comment, 0 Refill(s) Start Date: 10/16/15 Status: Suspended hydromorphone 2 mg oral tablet 4 mg = 2 tab, PO, Q6H, PRN Pain Score 7-10, 0 Refill(s) Start Date: 10/16/15 Status: Suspended Levi Nutrition Supplement Levi Nutrition Supplement, 1 pkg, Drug form: MISC, Route: PO, BID, 09/28/15 11 :00:00, Duration: 30 day, Stop date: 10/28/15 9:00:00 Start Date: 09/28/15 Stop Date: 10/05/15 Status: Discontinued Levi 24 gm packet 1 pkt, Route: PO, Dosing Weight 69.574, kg, BID, Start date: 10/16/15 17:00:00, Duration: 30 day, Stop date: 11/15/15 9:00:00 Start Date: 10/16/15 Stop Date: 10/16/15 Status: Deleted Kayexalate 30 gm, 120 mL, Route: PO, Drug form: SUSP, ONCE, Dosing Weight 69.574, kg, Start date: 10/01/15 15:46:00, Stop date: 10/01/15 15:46:00 Notes: (sodium polystyrene sulfonate 15 gm/60 ml SOLITARIO) Shake well before use. (Same as: Kayexalate, SPS) Start Date: 10/01/15 Stop Date: 10/01/15 Status: Completed Kayexalate 30 gm, 120 mL, Route: PO, Drug form: SUSP, ONCE, Dosing Weight 69.574, kg, Start date: 09/30/15 10:45:00, Stop date: 09/30/15 10:45:00 Notes: (sodium polystyrene sulfonate 15 gm/60 ml SOLITARIO) Shake well before use. (Same as: Kayexalate, SPS) Start Date: 09/30/15 Stop Date: 09/30/15 Status: Completed lactobacillus acidophilus 1 tab, Route: PO, Drug Form: TAB, Dosing Weight 69.574, kg, Daily, Start date: 0 09/23/15 9:00:00, Duration: 30 day, Stop date: 10/22/15 9:00:00 Start Date: 09/23/15 Stop Date: 09/22/15 Status: Deleted lactobacillus rhamnosus GG 1 cap, Route: PO, Drug Form: CAP, Daily, Start date: 09/23/15 9:00:00, Duration: 30 day, Stop date: 10/22/15 9:00:00 Notes: Same as Culturelle Start Date: 09/23/15 Stop Date: 10/16/15 Status: Discontinued lactobacillus rhamnosus GG PO, Daily, 0 Refill(s) Start Date: 10/16/15 Status: Suspended Levaquin 750 mg, 1 tab, Route: PO, Drug form: TAB, [id number], Dosing Weight 69.574, kg, For CrCl > 49ml/min, Priority: NOW, Start date: 10/12/15 21:56:00, Duration: 30 day, Stop date: 11/10/15 21:56:00 Notes: Do not give w/antacids, dairy pdt & mineralsTake 1 hr before or 2 hr after dairy products Start Date: 10/12/15 Stop Date: 10/16/15 Status: Discontinued levofloxacin 750 mg oral tablet 750 mg = 1 tab, PO, [id number], 0 Refill(s) Start Date: 10/16/15 Status: Suspended lidocaine topical 5 mL, Route: S&SPIT, Drug form: SOLN, Q8H, PRN Other -See Comment, Start date: 09/28/15 11:45:00, Duration: 30 day, Stop date: 10/28/15 11:44:00 Notes: (Same as: Xylocaine Viscous) Start Date: 09/28/15 Stop Date: 10/16/15 Status: Discontinued Lidocaine Viscous 2% mucous membrane solution 0 Refill(s) Start Date: 10/16/15 Status: Suspended linezolid 600 mg, 300 mL, Route: IVPB, Drug form: SOLN, [id number], Dosing Weight 68.182, kg, Start date: 09/13/15 10:00:00, Duration: 30 day, Stop date: 10/12/15 22:00:00 Notes: (Same as: Zyvox) Start Date: 09/13/15 Stop Date: 09/13/15 Status: Discontinued Lovenox 40 mg, 0.4 mL, Route: SUB-Q, Drug form: INJ, [id number], Dosing Weight 69.574, kg, Start date: 10/07/15 8:00:00, Duration: 30 day, Stop date: 11/05/15 8:00:00 Notes: (Same as: Lovenox) Start Date: 10/07/15 Stop Date: 10/16/15 Status: Discontinued Lovenox 40 mg, 0.4 mL, Route: SUB-Q, Drug form: INJ, [id number], Dosing Weight 69.574, kg, Start date: 10/01/15 16:00:00, Duration: 30 day, Stop date: 10/30/15 16:00:00 Notes: (Same as: Lovenox) Start Date: 10/01/15 Stop Date: 10/06/15 Status: Discontinued Lovenox 40 mg, 0.4 mL, Route: SUB-Q, Drug form: INJ, [id number], Dosing Weight 69.574, kg, Priority: NOW, Start date: 09/15/15 9:37:00, Duration: 30 day, Stop date: 10/13 9:37:00 Notes: (Same as: Lovenox) Start Date: 09/15/15 Stop Date: 10/01/15 Status: Discontinued Maxipime + Sodium Chloride 0.9% IV 100 mL 1 gm, Route: IVPB, [id number], Start date: 10/08/15 2:00:00, Duration: 30 day, Stop date: 11/06/15 18:00:00 Notes: (Same As: Maxipime) MEDICATION WASTE Product Size: 1000 mgProduc t Wasted: ___ mg Start Date: 10/08/15 Stop Date: 10/11/15 Status: Discontinued meperidine 12.5 mg, 0.25 mL, Route: IVP, Drug form: INJ, Q30Min, Dosing Weight 69.574, kg, PRN Other -See Comment, For shivering, Start date: 10/02/15 10:15:00, Duration: 2 doses or times, Stop date: Limited # of times Notes: (Same As: Demerol) Start Date: 10/02/15 Stop Date: 10/02/15 Status: Discontinued meperidine 12.5 mg, 0.25 mL, Route: IVP, Drug form: INJ, Q30Min, Dosing Weight 69.574, kg, PRN Other -See Comment, For shivering, Start date: 10/09/15 14:52:00, Duration: 2 doses or times, Stop date: Limited # of times Notes: (Same As: Demerol) Start Date: 10/09/15 Stop Date: 10/09/15 Status: Discontinued meropenem + Sodium Chloride 0.9% IV 100 mL 500 mg, Route: IVPB, [id number], Dosing Weight 68.182, kg, CrCL > = 50ml/min, Extended infusion, infuse over 3 hours, Start date: 09/13/15 10:00:00, Duration: 30 day, Stop date: 11/12/15 8:00:00 Notes: Same as Merrem MEDICATION WASTE Product Size: 500 mgProduct Wast ed: ___ mg Start Date: 09/13/15 Stop Date: 10/08/15 Status: Discontinued metoprolol 1 mg, 1 mL, Route: IVP, Drug form: INJ, Q5Min, Dosing Weight 69.574, kg, PRN Oth er -See Comment, Start date: 10/02/15 10:15:00, Duration: 5 doses or times, Stop date: Limited # of times Notes: (Same as: Lopressor)Push over 2 minutes Start Date: 10/02/15 Stop Date: 10/02/15 Status: Discontinued metoprolol 1 mg, 1 mL, Route: IVP, Drug form: INJ, Q5Min, Dosing Weight 69.574, kg, PRN Oth er -See Comment, Start date: 10/09/15 14:52:00, Duration: 5 doses or times, Stop date: Limited # of times Notes: (Same as: Lopressor)Push over 2 minutes Start Date: 10/09/15 Stop Date: 10/09/15 Status: Discontinued mirtazapine 30 mg, 1 tab, Route: PO, Drug form: TAB, Bedtime, Dosing Weight 69.574, kg, Star t date: 09/14/15 21:00:00, Duration: 30 day, Stop date: 10/13/15 21:00:00 Notes: (Same as:Remeron) Start Date: 09/14/15 Stop Date: 09/25/15 Status: Discontinued morphine Sulfate 4 mg, 1 mL, Route: IVP, Drug form: INJ, Q6H, Dosing Weight 68.182, kg, PRN Pain Score 7-10, Start date: 09/13/15 8:36:00, Stop date: 10/13/15 8:35:00 Notes: (Same as:MORPhine Sulfate) Start Date: 09/13/15 Stop Date: 09/22/15 Status: Discontinued morphine Sulfate 2 mg, 1 mL, Route: IVP, Drug form: INJ, Q5Min, Dosing Weight 69.574, kg, PRN Maxwell n Score 4-6, Start date: 10/02/15 10:15:00, Duration: 5 doses or times, Stop jonathon e: Limited # of times Notes: (Same as:MORPhine Sulfate) Start Date: 10/02/15 Stop Date: 10/02/15 Status: Discontinued morphine Sulfate 2 mg, 1 mL, Route: IVP, Drug form: INJ, Q5Min, Dosing Weight 69.574, kg, PRN Maxwell n Score 4-6, Start date: 10/06/15 14:50:00, Duration: 5 doses or times, Stop jonathon e: Limited # of times Notes: (Same as:MORPhine Sulfate) Start Date: 10/06/15 Stop Date: 10/06/15 Status: Discontinued morphine Sulfate 2 mg, 1 mL, Route: IVP, Drug form: INJ, Q5Min, Dosing Weight 69.574, kg, PRN Maxwell n Score 4-6, Start date: 10/09/15 14:52:00, Duration: 5 doses or times, Stop jonathon e: Limited # of times Notes: (Same as:MORPhine Sulfate) Start Date: 10/09/15 Stop Date: 10/09/15 Status: Discontinued multivitamin 1 tab, Route: PO, Drug Form: TAB, Dosing Weight 69.574, kg, Breakfast, Start jonathon e: 09/15/15 8:00:00, Duration: 30 day, Stop date: 11/13/15 8:00:00 Notes: (Same as:Thera)WASTE: F/P - Black; E - Municipal Trash Bin Take with kameron d. Start Date: 09/15/15 Stop Date: 10/16/15 Status: Discontinued naloxone 0.4 mg, 1 mL, Route: IV, Drug form: INJ, ONCE, Start date: 10/07/15 14:05:00, St op date: 10/07/15 14:05:00 Notes: Same as Narcan Start Date: 10/07/15 Stop Date: 10/07/15 Status: Completed naloxone 0.04 mg, 0.1 mL, Route: IVP, Drug form: INJ, Q2MIN, Dosing Weight 69.574, kg, WI N Narcotic Reversal, Start date: 10/02/15 10:15:00, Duration: 8 doses or times, Stop date: Limited # of times Notes: Same as Narcan Start Date: 10/02/15 Stop Date: 10/02/15 Status: Discontinued naloxone 0.1 mg, 0.25 mL, Route: SUB-Q, Drug form: INJ, Q6H, Dosing Weight 69.574, kg, WI N Itching, Start date: 10/02/15 10:15:00, Duration: 30 day, Stop date: 11/01/15 10:14:00 Notes: Same as Narcan Start Date: 10/02/15 Stop Date: 10/02/15 Status: Discontinued naloxone 0.04 mg, 0.1 mL, Route: IVP, Drug form: INJ, Q2MIN, Dosing Weight 69.574, kg, WI N Narcotic Reversal, Start date: 10/06/15 14:50:00, Duration: 8 doses or times, Stop date: Limited # of times Notes: Same as Narcan Start Date: 10/06/15 Stop Date: 10/06/15 Status: Discontinued naloxone 0.1 mg, 0.25 mL, Route: SUB-Q, Drug form: INJ, Q6H, Dosing Weight 69.574, kg, WI N Itching, Start date: 10/09/15 14:52:00, Duration: 30 day, Stop date: 11/08/15 14:51:00 Notes: Same as Narcan Start Date: 10/09/15 Stop Date: 10/09/15 Status: Discontinued naloxone 0.04 mg, 0.1 mL, Route: IVP, Drug form: INJ, Q2MIN, Dosing Weight 69.574, kg, WI N Narcotic Reversal, Start date: 10/09/15 14:52:00, Duration: 8 doses or times, Stop date: Limited # of times Notes: Same as Narcan Start Date: 10/09/15 Stop Date: 10/09/15 Status: Discontinued normal saline inhalation solution 0.09 gm = 10 mL, IVP, PRN, PRN Line Flush, 0 Refill(s) Start Date: 10/16/15 Status: Suspended nutritional supplement 1 pkt, Route: PO, Drug Form: PWDR, BID, Start date: 10/05/15 17:00:00, Duration: 30 day, Stop date: 11/04/15 9:00:00 Notes: (Same as: Levi Almond) Start Date: 10/05/15 Stop Date: 10/16/15 Status: Discontinued nutritional supplement 1 pkt, Route: PO, Drug Form: PWDR, BID, Start date: 09/27/15 9:06:00, Duration: 30 day, Stop date: 10/27/15 9:00:00 Notes: (Same as: Beneprotein) Start Date: 09/27/15 Stop Date: 09/28/15 Status: Voided With Results ondansetron 4 mg, 2 mL, Route: IVP, Drug form: INJ, Q6H, Dosing Weight 68.182, kg, PRN Nause a & Vomiting, Start date: 09/13/15 8:36:00, Duration: 30 day, Stop date: 11/12/15 8:35:00 Notes: (Same as: Klaus) MEDICATION WASTE Product Size: 4 mgProduct Was reinaldo: ___ mg Start Date: 09/13/15 Stop Date: 10/16/15 Status: Discontinued ondansetron 4 mg, 2 mL, Route: IVP, Drug form: INJ, ONCE, Dosing Weight 69.574, kg, PRN Naus ea & Vomiting, Start date: 10/02/15 10:15:00 Notes: (Same as: Klaus) MEDICATION WASTE Product Size: 4 mgProduct Was reinaldo: ___ mg Start Date: 10/02/15 Stop Date: 10/02/15 Status: Discontinued ondansetron 4 mg, 2 mL, Route: IVP, Drug form: INJ, ONCE, Dosing Weight 69.574, kg, PRN Naus ea & Vomiting, Start date: 10/06/15 14:50:00 Notes: (Same as: Klaus) MEDICATION WASTE Product Size: 4 mgProduct Was reinaldo: ___ mg Start Date: 10/06/15 Stop Date: 10/06/15 Status: Discontinued ondansetron 4 mg, 2 mL, Route: IVP, Drug form: INJ, ONCE, Dosing Weight 69.574, kg, PRN Naus ea & Vomiting, Start date: 10/09/15 14:52:00 Notes: (Same as: Klaus) MEDICATION WASTE Product Size: 4 mgProduct Was reinaldo: ___ mg Start Date: 10/09/15 Stop Date: 10/09/15 Status: Completed ondansetron 2 mg/mL injectable solution 4 mg = 2 mL, IVP, Q6H, PRN Nausea & Vomiting, 0 Refill(s) Start Date: 10/16/15 Status: Suspended OxyIR 20 mg, 4 tab, Route: PO, Drug form: TAB, Q6H, Dosing Weight 69.574, kg, PRN Pain Score 4-6, Start date: 09/22/15 17:36:00, Duration: 30 day, Stop date: 10/22/15 17:35:00 Notes: (Same as: Roxicodone) Start Date: 09/22/15 Stop Date: 09/26/15 Status: Discontinued pantoprazole 40 mg, 1 tab, Route: PO, Drug form: ECTAB, Before Dinner, Dosing Weight 69.574, kg, Start date: 09/15/15 16:30:00, Duration: 30 day, Stop date: 11/13/15 16:30:0 0 Notes: Tablet should not be chewed or crushed.(Same as: Protonix) Start Date: 09/15/15 Stop Date: 10/16/15 Status: Discontinued pantoprazole 40 mg oral enteric coated tablet 40 mg = 1 tab, PO, Before Dinner, 0 Refill(s) Start Date: 10/16/15 Status: Suspended Procrit 7,000 unit, 0.7 mL, Route: SUB-Q, Drug form: INJ, Q-M-W-F, Start date: 10/11/15 17:00:00, Duration: 30 day, Stop date: 11/08/15 17:00:00 Notes: (Same as: Procrit) epoetin geetha 10,000 unit/1 ml VLFor non-dialysis use o nly.WASTE: F/P - Red; E -Red MEDICATION WASTE Product Size: 76887 unitP roduct Wasted: ___ unit Start Date: 10/11/15 Stop Date: 10/16/15 Status: Discontinued promethazine 6.25 mg, Route: IVPB, ONCE, Dosing Weight 69.574, kg, PRN Nausea & Vomiting, Start date: 10/02/15 10:15:00 Start Date: 10/02/15 Stop Date: 10/02/15 Status: Deleted promethazine 6.25 mg, Route: IVPB, ONCE, Dosing Weight 69.574, kg, PRN Nausea & Vomiting, Start date: 10/09/15 14:52:00 Start Date: 10/09/15 Stop Date: 10/09/15 Status: Deleted Saline Flush 0.9% 10 ml, Route: IVP, Drug Form: INJ, Dosing Weight 68.182, kg, PRN, PRN Line Flush , Start date: 09/13/15 8:36:00, Duration: 30 day, Stop date: 10/13/15 8:35:00 Notes: (Same as: BD Posiflush) Start Date: 09/13/15 Stop Date: 10/01/15 Status: Discontinued Saline Flush 0.9% 10 ml, Route: IVP, Drug Form: INJ, Dosing Weight 69.574, kg, PRN, PRN Line Flush , Start date: 10/01/15 17:40:00, Duration: 30 day, Stop date: 10/31/15 18:39:00 Notes: (Same as: BD Posiflush) Start Date: 10/01/15 Stop Date: 10/10/15 Status: Discontinued Santyl 1 appl, Route: TOP, PRN, Drug form: OINT, PRN Other -See Comment, Start date: 22:53:00, Duration: 30 day, Stop date: 10/20/15 23:52:00 Notes: (Same As: Santyl) Start Date: 09/20/15 Stop Date: 10/01/15 Status: Discontinued senna 8.6 mg oral tablet 8.6 mg = 1 tab, PO, BID, PRN Constipation, 0 Refill(s) Start Date: 10/16/15 Status: Suspended Senokot 8.6 mg, 1 tab, Route: PO, Drug form: TAB, BID, PRN Constipation, Start date: 06/19 19:52:00, Duration: 30 day, Stop date: 11/13/15 19:51:00 Notes: (Same as: Senokot) Start Date: 09/14/15 Stop Date: 10/16/15 Status: Discontinued Sodium Chloride 0.45% IV 1,000 mL 1,000 mL, Rate: 125 ml/hr, Infuse over: 8 hr, Route: IV, Dosing Weight 69.574 kg , Total Volume: 1,000, Start date: 10/01/15 19:38:00, Duration: 30 day, Stop jonathon e: 10/31/15 19:37:00 Start Date: 10/01/15 Stop Date: 10/16/15 Status: Discontinued Sodium Chloride 0.9% (titrate) 250 mL 250 mL, Rate: bell hole digger for use with blood product administration, Dosing Weight 6 9.574, kg, Route: IV, Total Volume: 250, Start Date: 10/10/15 9:13:00, Duration: 30 day, Stop date: 11/09/15 9:12:00, Replace Every: 24 hr Start Date: 10/10/15 Stop Date: 10/10/15 Status: Discontinued Sodium Chloride 0.9% (titrate) 250 mL 250 mL, Rate: bell hole digger for use with blood product administration, Dosing Weight 6 9.574, kg, Route: IV, Total Volume: 250, Start Date: 10/10/15 9:41:00, Duration: 30 day, Stop date: 11/09/15 9:40:00, Replace Every: 24 hr Start Date: 10/10/15 Stop Date: 10/12/15 Status: Discontinued Sodium Chloride 0.9% IV 250 mL, Route: IVPB, Start date: 10/10/15 16:19:00, Duration: 30 day, Stop date: 11/09/15 17:18:00, PRN Line Flush Start Date: 10/10/15 Stop Date: 10/16/15 Status: Discontinued Sodium Chloride 0.9% IV 1,000 mL 1,000 mL, Rate: 100 ml/hr, Infuse over: 10 hr, Route: IV, Dosing Weight 68.182 k g, Total Volume: 1,000, Start date: 09/13/15 8:36:00, Duration: 30 day, Stop jonathon e: 10/13/15 8:35:00 Start Date: 09/13/15 Stop Date: 09/15/15 Status: Discontinued Sodium Chloride 0.9% IV 1000 mL 1,000 mL, Rate: 50 ml/hr, Infuse over: 20 hr, Route: IV, Dosing Weight 69.574 kg , Total Volume: 1,000, Start date: 10/06/15 14:50:00, Duration: 30 day, Stop jonathon e: 11/05/15 14:49:00 Start Date: 10/06/15 Stop Date: 10/06/15 Status: Discontinued Tylenol 650 mg, 2 tab, Route: PO, Drug form: TAB, Q6H, PRN For Temp > 100.4 F, Start date: 09/25/15 0:12:00, Duration: 30 day, Stop date: 10/25/15 0:11:00 Notes: Do not exceed 4 gm/day. (Same as: Tylenol) Start Date: 09/25/15 Stop Date: 10/16/15 Status: Discontinued Xanax 2 mg, 2 tab, Route: PO, Drug form: TAB, TID, Start date: 10/06/15 14:00:00, Dura tion: 30 day, Stop date: 11/05/15 9:00:00 Notes: With food or milk(Same as: Xanax) Start Date: 10/06/15 Stop Date: 10/16/15 Status: Discontinued Xanax 1 mg, 1 tab, Route: PO, Drug form: TAB, TID, Start date: 09/21/15 21:00:00, Stop date: 10/21/15 14:00:00 Notes: With food or milk(Same as: Xanax) Start Date: 09/21/15 Stop Date: 10/06/15 Status: Discontinued Xanax 2 mg, 4 tab, Route: PO, Drug form: TAB, ONCE, Start date: 09/13/15 23:25:00, Sto p date: 09/13/15 23:25:00 Notes: With food or milk(Same as: Xanax) Start Date: 09/13/15 Stop Date: 09/13/15 Status: Completed Zyvox 600 mg, 1 tab, Route: PO, Drug form: TAB, [id number], Start date: 09/13/15 22:00:00 , Duration: 30 day, Stop date: 11/12/15 10:00:00 Notes: Protect from light. (Same as: Zyvox) Start Date: 09/13/15 Stop Date: 10/10/15 Status: Discontinued Results BLOOD BANK RESULTS 1 2 3 Most recent to oldest [Reference Range]: A POS *Unknown* (10/09/15 10:26 AM) A POS *Unknown* (10/05/15 2:43 PM) A POS *Unknown* (09/30/15 11:58 AM) ABO/Rh Negative (10/09/15 10:26 AM) Negative (10/05/15 2:43 PM) Negative (09/30/15 11:58 AM) Antibody Scrn The transfusion reaction form and EMR stock ve been reviewed. The patient experienced altered mental status while receiving PRBC. Vital sgns did not change significantly. This does not correspond to a typical form of transfusion reaction and therefore it is likely that the altered mental status is unrelated to the transfusion. Clinical correlation is required. There is no evidence o fa hemolytic transfusion reaction. *NA* (10/07/15 4:44 PM) TRXN Path Interp Product available (10/10/15 9:41 AM) Product available (10/10/15 9:13 AM) Product available (10/07/15 10:49 AM) RBC product None (10/07/15 4:44 PM) Hemolysis Ck ELECTROLYTES 1 2 3 Most recent to oldest [Reference Range]: 141 mEq/L (10/16/15 3:42 AM) 138 mEq/L (10/15/15 3:40 AM) 140 mEq/L (10/14/15 5:17 AM) Sodium Lvl [135-145 mEq/L] 4.5 mEq/L (10/16/15 3:42 AM) 4.5 mEq/L (10/15/15 3:40 AM) 4.9 mEq/L (10/14/15 5:17 AM) Potassium Lvl [3.5-5.1 mEq/L] 109 mEq/L (10/16/15 3:42 AM) 104 mEq/L (10/15/15 3:40 AM) 109 mEq/L (10/14/15 5:17 AM) Chloride Lvl [95-109 mEq/L] 21 mEq/L *LOW* (10/16/15 3:42 AM) 25 mEq/L (10/15/15 3:40 AM) 19 mEq/L *LOW* (10/14/15 5:17 AM) CO2 [24-32 mEq/L] 15.5 mEq/L (10/16/15 3:42 AM) 13.5 mEq/L (10/15/15 3:40 AM) 16.9 mEq/L (10/14/15 5:17 AM) AGAP [10.0-20.0 mEq/L] CHEM PANEL 1 2 3 Most recent to oldest [Reference Range]: 1.40 mg/dL (10/16/15 3:42 AM) 1.60 mg/dL *HI* (10/15/15 3:40 AM) 1.60 mg/dL *HI* (10/14/15 5:17 AM) Creatinine Lvl [0.50-1.40 mg/dL] 67 mL/min/1.73m2 1 *NA* (10/16/15 3:42 AM) 57 mL/min/1.73m2 2 *NA* (10/15/15 3:40 AM) 57 mL/min/1.73m2 3 *NA* (10/14/15 5:17 AM) eGFR 22 mg/dL (10/16/15 3:42 AM) 24 mg/dL *HI* (10/15/15 3:40 AM) 20 mg/dL (10/14/15 5:17 AM) BUN [7-22 mg/dL] 28 *HI* (09/19/15 5:08 AM) B/C Ratio [6-25] 100 mg/dL *HI* (10/16/15 3:42 AM) 113 mg/dL *HI* (10/15/15 3:40 AM) 146 mg/dL *HI* (10/14/15 5:17 AM) Glucose Lvl [70-99 mg/dL] 7.8 g/dL (09/19/15 5:08 AM) Total Protein [6.4-8.4 g/dL] 2.2 g/dL *LOW* (09/19/15 5:08 AM) Albumin Lvl [3.5-5.0 g/dL] 5.6 g/dL *HI* (09/19/15 5:08 AM) Globulin [2.0-4.0 g/dL] 0.4 *LOW* (09/19/15 5:08 AM) A/G Ratio [0.7-1.6] 8.3 mg/dL *LOW* (10/16/15 3:42 AM) 8.9 mg/dL (10/15/15 3:40 AM) 8.8 mg/dL (10/14/15 5:17 AM) Calcium Lvl [8.5-10.5 mg/dL] 2.8 mg/dL (09/30/15 6:12 AM) Phosphorus [2.5-4.5 mg/dL] 1.9 mg/dL (09/30/15 6:12 AM) Magnesium Lvl [1.8-2.4 mg/dL] 25 unit/L (09/19/15 5:08 AM) ALT [0-65 unit/L] 14 unit/L (09/19/15 5:08 AM) AST [0-37 unit/L] 118 unit/L (09/19/15 5:08 AM) Alk Phos [39-136 unit/L] 0.3 mg/dL (09/19/15 5:08 AM) Bili Total [0.2-1.3 mg/dL] 2.0 mMol/L (09/25/15 5:06 AM) Lactic Acid Lvl [0.5-2.2 mMol/L] 0.40 ng/mL *HI* (09/25/15 5:06 AM) Procalcitonin Lvl [0.00-0.10 ng/mL] 1Result Comment: [...] be mul tiplied by the estimated BMI. ANEMIA STUDY 1 2 3 Most recent to oldest [Reference Range]: 73 ug/dl (10/02/15 5:34 AM) Iron [45-160 ug/dl] 806 ng/mL *HI* (10/02/15 5:34 AM) Ferritin Lvl [22-275 ng/mL] 31 % (10/02/15 5:34 AM) % Satur Fe [12-57 %] 161 ug/dl (10/02/15 5:34 AM) UIBC [110-370 ug/dl] 234 ug/dl (10/02/15 5:34 AM) TIBC [228-428 ug/dl] DRUG SCREEN 1 2 3 Most recent to oldest [Reference Range]: Negative *NA* (10/05/15 1:00 PM) Negative *NA* (09/23/15 10:57 AM) U Methadone Scr [Negative] Negative *NA* (10/05/15 1:00 PM) Negative *NA* (09/23/15 10:57 AM) U Propoxyph Scr [Negative] Negative *NA* (10/05/15 1:00 PM) Negative *NA* (09/23/15 10:57 AM) U Amph Scr [Negative] Negative *NA* (10/05/15 1:00 PM) Negative *NA* (09/23/15 10:57 AM) U Chelsie Scr [Negative] Positive *ABN* (10/05/15 1:00 PM) Positive *ABN* (09/23/15 10:57 AM) U Benzodia Scr [Negative] Negative *NA* (10/05/15 1:00 PM) Negative *NA* (09/23/15 10:57 AM) U Cocaine Scr [Negative] Positive *ABN* (10/05/15 1:00 PM) Positive *ABN* (09/23/15 10:57 AM) U Opiate Scr [Negative] Negative *NA* (10/05/15 1:00 PM) Negative *NA* (09/23/15 10:57 AM) U Phencyc Scr [Negative] Negative *NA* (10/05/15 1:00 PM) Positive *ABN* (09/23/15 10:57 AM) U Cannab Scr [Negative] See Note (10/05/15 1:00 PM) See Note (09/23/15 10:57 AM) UDS Note TOXICOLOGY 1 2 3 Most recent to oldest [Reference Range]: 6.0 ug/ml *NA* (10/12/15 4:52 AM) Amikacin Lvl URINE AND STOOL 1 2 3 Most recent to oldest [Reference Range]: Slight *ABN* (10/16/15 3:15 AM) Slight *ABN* (09/25/15 5:28 PM) UA Turbidity [Clear] Yellow *NA* (10/16/15 3:15 AM) Yellow *NA* (09/25/15 5:28 PM) UA Color [Yellow] 7.0 (10/16/15 3:15 AM) 7.0 (09/25/15 5:28 PM) UA pH [5.0-8.0] 1.014 (10/16/15 3:15 AM) 1.015 (09/25/15 5:28 PM) UA Spec Grav [<=1.030] Negative mg/dL *NA* (10/16/15 3:15 AM) Negative mg/dL *NA* (09/25/15 5:28 PM) UA Glucose [Negative mg/dL] Negative (10/16/15 3:15 AM) Negative (09/25/15 5:28 PM) UA Blood [Negative] Negative mg/dL *NA* (10/16/15 3:15 AM) Negative mg/dL *NA* (09/25/15 5:28 PM) UA Ketones [Negative mg/dL] 30 mg/dL *ABN* (10/16/15 3:15 AM) 30 mg/dL *ABN* (09/25/15 5:28 PM) UA Protein [Negative mg/dL] <=1.0 mg/dL *NA* (10/16/15 3:15 AM) <=1.0 mg/dL *NA* (09/25/15 5:28 PM) UA Urobilinogen [0.1-1.0 mg/dL] Negative *NA* (10/16/15 3:15 AM) Negative *NA* (09/25/15 5:28 PM) UA Bili [Negative] Moderate *ABN* (10/16/15 3:15 AM) Moderate *ABN* (09/25/15 5:28 PM) UA Leuk Est [Negative] Negative (10/16/15 3:15 AM) Negative (09/25/15 5:28 PM) UA Nitrite [Negative] 33 /HPF *HI* (10/16/15 3:15 AM) 16 /HPF *HI* (09/25/15 5:28 PM) UA WBC [0-5 /HPF] 4 /HPF *HI* (10/16/15 3:15 AM) 5 /HPF *HI* (09/25/15 5:28 PM) UA RBC [0-2 /HPF] Occasional /HPF *NA* (10/16/15 3:15 AM) UA Bacteria [None Seen /HPF] Occasional /LPF *NA* (10/16/15 3:15 AM) UA Sq Epi [Few /LPF] None Seen *NA* (09/25/15 5:28 PM) UA Sq Epi 1 /LPF (09/25/15 5:28 PM) UA Hyal Cast [0-2 /LPF] Few /LPF *NA* (10/16/15 3:15 AM) Few /LPF *NA* (09/25/15 5:28 PM) UA Mucus [None Seen /LPF] Occasional /HPF *ABN* (09/25/15 5:28 PM) UA Alpine Yeast [None Seen /HPF] IMMUNOLOGY 1 2 3 Most recent to oldest [Reference Range]: 32.3 mg/L *NA* (09/15/15 6:09 AM) CRP, High Sensitivity HEMATOLOGY 1 2 3 Most recent to oldest [Reference Range]: 9.7 K/CMM (10/16/15 3:42 AM) 12.7 K/CMM *HI* (10/15/15 3:40 AM) 8.2 K/CMM (10/14/15 5:17 AM) WBC [3.7-10.4 K/CMM] 2.85 M/CMM *LOW* (10/16/15 3:42 AM) 3.03 M/CMM *LOW* (10/15/15 3:40 AM) 3.00 M/CMM *LOW* (10/14/15 5:17 AM) RBC [4.70-6.10 M/CMM] 8.4 g/dL *LOW* (10/16/15 3:42 AM) 9.1 g/dL *LOW* (10/15/15 3:40 AM) 8.9 g/dL *LOW* (10/14/15 5:17 AM) Hgb [14.0-18.0 g/dL] 26.2 % *LOW* (10/16/15 3:42 AM) 27.1 % *LOW* (10/15/15 3:40 AM) 27.0 % *LOW* (10/14/15 5:17 AM) Hct [42.0-54.0 %] 91.8 fL (10/16/15 3:42 AM) 89.6 fL (10/15/15 3:40 AM) 90.1 fL (10/14/15 5:17 AM) MCV [80.0-94.0 fL] 29.3 pg (10/16/15 3:42 AM) 30.1 pg (10/15/15 3:40 AM) 29.6 pg (10/14/15 5:17 AM) MCH [27.0-31.0 pg] 31.9 g/dL *LOW* (10/16/15 3:42 AM) 33.7 g/dL (10/15/15 3:40 AM) 32.9 g/dL (10/14/15 5:17 AM) MCHC [32.0-36.0 g/dL] 22.4 % *HI* (10/16/15 3:42 AM) 21.3 % *HI* (10/15/15 3:40 AM) 19.9 % *HI* (10/14/15 5:17 AM) RDW [11.5-14.5 %] 423 K/CMM (10/16/15 3:42 AM) 486 K/CMM *HI* (10/15/15 3:40 AM) 405 K/CMM (10/14/15 5:17 AM) Platelet [133-450 K/CMM] 8.1 fL (10/16/15 3:42 AM) 7.7 fL (10/15/15 3:40 AM) 7.7 fL (10/14/15 5:17 AM) MPV [7.4-10.4 fL] 74.8 % (10/16/15 3:42 AM) 61.6 % (10/15/15 3:40 AM) 84.6 % *HI* (10/14/15 5:17 AM) Segs [45.0-75.0 %] 15.3 % *LOW* (10/16/15 3:42 AM) 24.3 % (10/15/15 3:40 AM) 6.0 % *LOW* (10/14/15 5:17 AM) Lymphocytes [20.0-40.0 %] 7.7 % (10/16/15 3:42 AM) 12.6 % *HI* (10/15/15 3:40 AM) 8.7 % (10/14/15 5:17 AM) Monocytes [2.0-12.0 %] 1.6 % (10/16/15 3:42 AM) 1.3 % (10/15/15 3:40 AM) 0.4 % (10/14/15 5:17 AM) Eosinophils [0.0-4.0 %] 0.6 % (10/16/15 3:42 AM) 0.2 % (10/15/15 3:40 AM) 0.3 % (10/14/15 5:17 AM) Basophils [0.0-1.0 %] 7.3 K/CMM (10/16/15 3:42 AM) 7.8 K/CMM (10/15/15 3:40 AM) 6.9 K/CMM (10/14/15 5:17 AM) Segs-Bands # [1.5-8.1 K/CMM] 1.5 K/CMM (10/16/15 3:42 AM) 3.1 K/CMM (10/15/15 3:40 AM) 0.5 K/CMM *LOW* (10/14/15 5:17 AM) Lymphocytes # [1.0-5.5 K/CMM] 0.7 K/CMM (10/16/15 3:42 AM) 1.6 K/CMM *HI* (10/15/15 3:40 AM) 0.7 K/CMM (10/14/15 5:17 AM) Monocytes # [0.0-0.8 K/CMM] 0.2 K/CMM (10/16/15 3:42 AM) 0.2 K/CMM (10/15/15 3:40 AM) 0.3 K/CMM (10/12/15 4:52 AM) Eosinophils # [0.0-0.5 K/CMM] 0.1 K/CMM (10/16/15 3:42 AM) 0.0 K/CMM (10/15/15 3:40 AM) 0.0 K/CMM (10/09/15 10:26 AM) Basophils # [0.0-0.2 K/CMM] Normal (10/15/15 3:40 AM) Normal (09/26/15 5:35 AM) Normal (09/13/15 3:51 AM) RBC Morph 1+ *ABN* (10/08/15 1:01 PM) 1+ *ABN* (10/07/15 9:18 AM) 1+ *ABN* (10/06/15 10:44 AM) Anisocyte [None Seen] Moderate *ABN* (10/10/15 6:17 AM) Moderate *ABN* (10/07/15 9:18 AM) Moderate *ABN* (09/16/15 6:20 AM) Polychrom [None Seen] 1+ (09/16/15 6:20 AM) Hypochrom [None Seen] Moderate *ABN* (10/10/15 6:17 AM) Moderate *ABN* (10/07/15 9:18 AM) Toxic Gran [None Seen] Normal (10/15/15 3:40 AM) Normal (10/10/15 6:17 AM) Normal (10/07/15 9:18 AM) Plt Morph 73 mm/hr *HI* (09/22/15 5:28 AM) >100 mm/hr *ABN* (09/19/15 5:08 AM) 74 mm/hr *HI* (09/15/15 6:09 AM) Sed Rate [0-15 mm/hr] 15.6 seconds *HI* (10/11/15 6:52 AM) 15.3 seconds *HI* (10/10/15 10:08 AM) PT [12.0-14.7 seconds] 1.21 *HI* (10/11/15 6:52 AM) 1.18 *HI* (10/10/15 10:08 AM) INR [0.85-1.17] 45.8 seconds *HI* (10/11/15 6:52 AM) 42.6 seconds *HI* (10/10/15 10:08 AM) PTT [22.9-35.8 seconds] MOLECULAR DIAGNOSTIC 1 2 3 Most recent to oldest [Reference Range]: Negative (09/25/15 5:28 PM) C difficile DNA [Negative] Immunizations Vaccine Date Refusal Reason influenza virus [...] Last 365 Days Yes; Reg Smoking Cessation 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 non weight bearing (reinforced with Mr Gastelum) , keep it dry & clean will follow Extracted from: Title: Clinical Document Author: Brandyn Coy MD Jonathon e: 10/13/15 PATIENT:MAXIMO GASTELUM JR DATE OF SURGERY:10/09/2015 PREOPERATIVE DIAGNOSIS:Left open BKA wound. POSTOPERATIVE DIAGNOSIS:Left open BKA wound. PROCEDURES:Closure left BKA. SURGEON: Brandyn Coy MD FAMILY SERVICES ASSISTANT SURGEON:Grzegorz Paul NP. SERVICE:Orthopaedic Surgery ANESTHESIA: General. IVF: See anesthetic report. EBL: 150cc SPECIMENS: None. COUNTS:Correct. FINDINGS: 1. Healthy tissue remained; no infectio n. COMPLICATIONS:None. INDICATION: Mr. Gastelum is a 30yo man [...]
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
--- OUTSIDE RECORDS SUMMARY | 2020-03-18 10:21 | XMS REPORT | Summary of Care ---
Author Author [facility] Organization [facility] Address Unknown Phone Unavailable Encounter MOJGAN Jacques(AMARI) [id number] Date(s): 12/31/15 - 01/12/16 [facility] [address] [employer] provided by [employer] [place] [address]- Discharge Disposition: Home Attending Physician: Francisco Ashraf MD Admitting Physician: Francisco Ashraf MD Vital Signs 1 2 3 Most recent to oldest [Reference Range]: 182.88 cm (01/01/16 3:04 AM) 182.88 cm (12/31/15 7:25 PM) Height 98.0 DegF (01/12/16 9:30 AM) 98.3 DegF (01/12/16 3:23 AM) 97.8 DegF (01/12/16 12:26 AM) Temperature Oral [96.4-99.1 DegF] 118/74 mmHg (01/12/16 9:30 AM) 121/69 mmHg (01/12/16 3:23 AM) 112/75 mmHg (01/12/16 12:26 AM) Blood Pressure [90-140/60-90 mmHg] 20 BRMIN (01/12/16 9:30 AM) 18 BRMIN (01/12/16 3:23 AM) 18 BRMIN (01/12/16 12:26 AM) Respiratory Rate [14-20 BRMIN] 98 bpm (01/12/16 9:30 AM) 83 bpm (01/12/16 3:23 AM) 119 bpm *HI* (01/12/16 12:26 AM) Peripheral Pulse Rate [60-100 bpm] 70.2 kg (01/01/16 3:04 AM) 65.909 kg (12/31/15 7:25 PM) Weight 20.99 m2 (01/01/16 3:04 AM) 19.71 m2 (12/31/15 7:25 PM) Body Mass Index Problem List Condition [...] from urine 4Problem added by Discern Expert. 5Urine - 12/31/15 (CRE) 6Ecoli ESBL isolated from urine 08/08/2015 7SACRUM, 05/27/2015 8URINE, 06/25/2014 910-13-12 E. COLI + ESBL: left & right foot wnd 10MDRO, URINE, 02/11/2012 11MDRO, URINE, 11/06/2011 12Problem added by Discern Expert. 13urine - 12/31/15 (CRE) 14Blood, 10/07/2015 [...] naproxen Active NKFA Active traMADol Active Medications amitriptyline 100 mg, 2 tab, Route: PO, Drug form: TAB, Bedtime, Dosing Weight 70.2, kg, Start date: 01/02/16 21:00:00 CDT, Duration: 30 day, Stop date: 01/31/16 21:00:00 CDT Notes: (Same as: Elavil) Start Date: 01/02/16 Stop Date: 01/12/16 Status: Discontinued amitriptyline 100 mg oral tablet 100 mg = 1 tab, PO, Bedtime, 0 Refill(s) Start Date: 01/01/16 Status: Ordered Augmentin 500 mg oral tablet 1 tab, PO, Q12H, X 6 week, # 84 tab, 0 Refill(s) Start Date: 01/10/16 Stop Date: 02/21/16 Status: Ordered calcium gluconate + sodium chloride 0.9% INJ 50 mL 1 gm, 10 mL, Route: IV, ONCE, Dosing Weight 70.2, kg, Start date: 01/11/16 13:01 :00 CDT, Stop date: 01/11/16 13:01:00 CDT Notes: WASTE: F/P - Sink; E - Municipal Trash Bin Start Date: 01/11/16 Stop Date: 01/12/16 Status: Completed cefepime 1 gm, Route: IVPB, [id number], Dosing Weight 70.2, kg, (CrCl 30 - 49 ml/min), Start date: 01/03/16 11:00:00 CDT, Duration: 30 day, Stop date: 02/01/16 23:00:00 CDT Start Date: 01/03/16 Stop Date: 01/03/16 Status: Deleted ceftazidime-avibactam + sodium chloride 0.9% INJ 100 mL 0.94 gm, Route: IV, [id number], Dosing Weight 70.2, kg, Start date: 01/12/16 22:00: 00 CDT, Duration: 30 day, Stop date: 02/11/16 10:00:00 CDT Notes: (Same as: Avycaz)Non-formulary Start Date: 01/12/16 Stop Date: 01/12/16 Status: Canceled ceftazidime-avibactam + Sodium Chloride 0.9% IV 100 mL 0.94 gm, Route: IV, [id number], Dosing Weight 70.2, kg, Start date: 01/09/16 2:00:0 0 CDT, Duration: 30 day, Stop date: 02/08/16 10:00:00 CDT Notes: (Same as: Avycaz)Non-formulary Start Date: 01/09/16 Stop Date: 01/12/16 Status: Discontinued ceftazidime-avibactam + Sodium Chloride 0.9% IV 100 mL 1.25 gm, Route: IV, [id number], Dosing Weight 70.2, kg, Start date: 01/06/16 14:00:0 0 CDT, Stop date: 02/05/16 6:00:00 CDT Notes: (Same as: Avycaz)Non-formulary Start Date: 01/06/16 Stop Date: 01/08/16 Status: Discontinued colistimethate + Sodium Chloride 0.9% IV 100 mL 140 mg, Route: IV, [id number], Dosing Weight 70.2, kg, Start date: 01/03/16 15:34:0 0 CDT, Duration: 30 day, Stop date: 02/02/16 5:00:00 CDT Notes: (Same As: Coly-Mycin) Start Date: 01/03/16 Stop Date: 01/06/16 Status: Discontinued Dilaudid 0.5 mg, 0.25 mL, Route: IVP, Drug form: INJ, ONCE, Dosing Weight 65.909, kg, Jojo ority: STAT, Start date: 12/31/15 23:04:00 CDT, Stop date: 12/31/15 23:04:00 CDT Notes: Same as: Dilaudid Start Date: 12/31/15 Stop Date: 01/01/16 Status: Completed docusate-senna 50 mg-8.6 mg oral tablet 1 tab, Route: PO, Drug Form: TAB, Dosing Weight 70.2, kg, BID, Start date: 01/01 21:00:00 CDT, Duration: 30 day, Stop date: 02/01/16 17:00:00 CDT Notes: (Same as Sendanuta-S) Equiv. to Kareen-Colace. Start Date: 01/02/16 Stop Date: 01/07/16 Status: Discontinued docusate-senna 50 mg-8.6 mg oral tablet 1 tab, Route: PO, Drug Form: TAB, Dosing Weight 70.2, kg, BID, Start date: 12/31 17:00:00 CDT, Duration: 30 day, Stop date: 01/31/16 9:00:00 CDT Notes: (Same as Senkaityot-S) Equiv. to Kareen-Colace. Start Date: 01/01/16 Stop Date: 01/02/16 Status: Discontinued doxycycline hyclate 100 mg oral tablet 100 mg = 1 tab, PO, Q12H, X 6 week, # 84 tab, 0 Refill(s) Start Date: 01/10/16 Stop Date: 02/21/16 Status: Ordered fosfomycin 3 g oral powder = 1 Pack, PO, Q72H, # 15 pkg, 0 Refill(s) Start Date: 01/10/16 Stop Date: 02/21/16 Status: Ordered gentamicin + Sodium Chloride 0.9% IV 100 mL 490 mg, 12.25 mL, Route: IVPB, [id number], Dosing Weight 70.2, kg, Start date: 08/19 12:00:00 CDT, Duration: 30 day, Stop date: 02/01/16 12:00:00 CDT Notes: TIME CRITICAL MEDICATION(Same as Garamycin) Start Date: 01/03/16 Stop Date: 01/03/16 Status: Discontinued heparin 5,000 unit, 1 mL, Route: SUB-Q, Drug form: INJ, Q8H, Dosing Weight 70.2, kg, Sta rt date: 01/03/16 16:00:00 CDT, Duration: 30 day, Stop date: 02/02/16 8:00:00 CD T Notes: porcine heparin Start Date: 01/03/16 Stop Date: 01/12/16 Status: Discontinued lactobacillus acidophilus 1 cap, Route: PO, Dosing Weight 70.2, kg, Daily, Start date: 01/11/16 13:00:00 C DT, Duration: 30 day, Stop date: 02/10/16 9:00:00 CDT Start Date: 01/11/16 Stop Date: 01/11/16 Status: Deleted lactobacillus rhamnosus GG 1 cap, Route: PO, Drug Form: CAP, Daily, Start date: 01/11/16 14:30:00 CDT, Dura tion: 30 day, Stop date: 02/10/16 9:00:00 CDT Notes: Same as Culturelle Start Date: 01/11/16 Stop Date: 01/12/16 Status: Discontinued Lyrica 75 mg, 1 cap, Route: PO, Drug form: CAP, Q12H, Dosing Weight 70.2, kg, Start river e: 01/03/16 21:00:00 CDT, Duration: 30 day, Stop date: 02/02/16 9:00:00 CDT Notes: (Same as: Lyrica) Start Date: 01/03/16 Stop Date: 01/12/16 Status: Discontinued magnesium oxide 800 mg, 2 tab, Route: PO, Drug form: TAB, ONCE, Dosing Weight 70.2, kg, Start da te: 01/05/16 7:05:00 CDT, Stop date: 01/05/16 7:05:00 CDT Notes: (Same as: Mag-Ox 400)Magnesium oxide [id number] elemental magnesiumDose= ____mg magnesium oxide (___mg elemental magnesium) Start Date: 01/05/16 Stop Date: 01/05/16 Status: Completed magnesium sulfate 1 gm, 100 mL, Route: IVPB, Drug form: INJ, ONCE, Dosing Weight 70.2, kg, Start d ate: 01/03/16 7:41:00 CDT, Stop date: 01/03/16 7:41:00 CDT Notes: WASTE: F/P - Sink; E - Municipal Trash Bin Start Date: 01/03/16 Stop Date: 01/03/16 Status: Completed magnesium sulfate 1 gm, 100 mL, Route: IVPB, Drug form: INJ, ONCE, Dosing Weight 70.2, kg, Start d ate: 01/11/16 7:06:00 CDT, Stop date: 01/11/16 7:06:00 CDT Notes: WASTE: F/P - Sink; E - Municipal Trash Bin Start Date: 01/11/16 Stop Date: 01/11/16 Status: Completed magnesium sulfate 2 gm, 50 mL, Route: IVPB, Drug form: INJ, ONCE, Dosing Weight 70.2, kg, Total do se = 2 gm, Start date: 01/06/16 7:08:00 CDT, Duration: 1 doses or times, Stop da te: 01/06/16 7:08:00 CDT Notes: WASTE: F/P - Sink; E - Municipal Trash Bin Start Date: 01/06/16 Stop Date: 01/06/16 Status: Completed magnesium sulfate 2 gm, 50 mL, Route: IVPB, Drug form: INJ, ONCE, Dosing Weight 70.2, kg, Total do se = 2 gm, Start date: 01/12/16 7:00:00 CDT, Duration: 1 doses or times, Stop da te: 01/12/16 7:00:00 CDT Notes: WASTE: F/P - Sink; E - Municipal Trash Bin Start Date: 01/12/16 Stop Date: 01/12/16 Status: Completed meropenem 1,000 mg, Route: IV, Q8H, Dosing Weight 70.2, kg, Start date: 01/01/16 16:00:00 CDT, Duration: 30 day, Stop date: 01/31/16 8:00:00 CDT Start Date: 01/01/16 Stop Date: 01/01/16 Status: Deleted meropenem 1,000 mg, Route: IV, Q8H, Dosing Weight 65.909, kg, Start date: 01/01/16 0:58:00 CDT, Duration: 30 day, Stop date: 01/31/16 0:00:00 CDT Start Date: 01/01/16 Stop Date: 01/01/16 Status: Discontinued meropenem + Sodium Chloride 0.9% IV 100 mL 500 mg, Route: IVPB, [id number], Start date: 01/01/16 10:00:00 CDT, Duration: 30 day , Stop date: 01/31/16 4:00:00 CDT Notes: Same as Merrem MEDICATION WASTE Product Size: 500 mgProduct Wast ed: ___ mg Start Date: 01/01/16 Stop Date: 01/01/16 Status: Discontinued methadone 5 mg, 1 tab, Route: PO, Drug form: TAB, Q12H, Dosing Weight 70.2, kg, Start date : 01/08/16 21:00:00 CDT, Duration: 30 day, Stop date: 02/07/16 9:00:00 CDT Notes: (Same as: Dolophine) Start Date: 01/08/16 Stop Date: 01/12/16 Status: Discontinued MiraLax 17 gm, 1 pkt, Route: PO, Drug form: PWDR, BID, Dosing Weight 70.2, kg, Start river e: 01/07/16 9:00:00 CDT, Duration: 30 day, Stop date: 02/05/16 17:00:00 CDT Notes: Dissolve in 8 oz of water or juice.(Same as: Miralax) Start Date: 01/07/16 Stop Date: 01/12/16 Status: Discontinued morphine Sulfate 4 mg, 1 mL, Route: IVP, Drug form: INJ, ONCE, Dosing Weight 65.909, kg, Priority : STAT, Start date: 12/31/15 19:39:00 CDT, Stop date: 12/31/15 19:39:00 CDT Notes: (Same as:MORPhine Sulfate) Start Date: 12/31/15 Stop Date: 12/31/15 Status: Completed NexIUM 40 mg, Route: PO, Daily, Dosing Weight 70.2, kg, Start date: 01/12/16 9:00:00 CD T, Duration: 30 day, Stop date: 02/10/16 9:00:00 CDT Start Date: 01/12/16 Stop Date: 01/11/16 Status: Deleted Denhoff 10/325 oral tablet 1 tab, PO, Q4H, PRN for pain, 0 Refill(s) Start Date: 01/01/16 Stop Date: 01/10/16 Status: Discontinued normal saline 0.9% IV 1,000 mL 1,000 mL, Rate: 75 ml/hr, Infuse over: 13.3 hr, Route: IV, Dosing Weight 70.2 kg , Total Volume: 1,000, Start date: 01/07/16 12:44:00 CDT, Duration: 30 day, Stop date: 02/06/16 12:43:00 CDT Start Date: 01/07/16 Stop Date: 01/11/16 Status: Discontinued normal saline 0.9% IV 1,000 mL 1,000 mL, Rate: 100 ml/hr, Infuse over: 10 hr, Route: IV, Dosing Weight 65.909 k g, Total Volume: 1,000, Start date: 01/01/16 0:56:00 CDT, Duration: 30 day, Stop date: 01/31/16 0:55:00 CDT Start Date: 01/01/16 Stop Date: 01/07/16 Status: Discontinued NS (Bolus) IV 2,000 mL, 2000 ml/hr, Infuse Over: 1 hr, Route: IV, 2,000, Drug form: INJ, ONCE, Priority: STAT, Dosing Weight 65.909 kg, Start date: 12/31/15 19:38:00 CDT, Dur ation: 1 doses or times, Stop date: 12/31/15 19:38:00 CDT Start Date: 12/31/15 Stop Date: 12/31/15 Status: Completed NS (Bolus) IV 1,000 mL, 1,000 ml/hr, Infuse Over: 1 hr, Route: IV, 1,000, Drug form: INJ, ONCE , Priority: STAT, Dosing Weight 65.909 kg, Start date: 12/31/15 21:56:00 CDT, Du ration: 1 doses or times, Stop date: 12/31/15 21:56:00 CDT Start Date: 12/31/15 Stop Date: 12/31/15 Status: Completed Omnipaque 350mg/ml 100 mL, Route: IVP, Drug Form: SOLN, Dosing Weight 65.909, kg, ONCALL, STAT, Sta rt date: 12/31/15 21:21:00 CDT, Duration: 1 doses or times, Dose = 2.2ml/kg, Ma x dose = 100ml -- "To be infused by Radiology Staff ONLY" Notes: (same as:Omnipaque 350).WASTE: F/P - Black; E - Municipal Trash Bin Start Date: 12/31/15 Stop Date: 12/31/15 Status: Completed oxyCODONE 5 mg immediate release 5 mg, 1 tab, Route: PO, Drug form: TAB, Q4H, Dosing Weight 70.2, kg, PRN Pain Sc ore 7-10, Start date: 01/03/16 17:35:00 CDT, Duration: 30 day, Stop date: 17:34:00 CDT Notes: (Same as: Roxicodone) Start Date: 01/03/16 Stop Date: 01/08/16 Status: Discontinued oxyCODONE 5 mg immediate release 5 mg, 1 tab, Route: PO, Drug form: TAB, Q2H, Dosing Weight 70.2, kg, PRN Pain Sc ore 7-10, Start date: 01/03/16 14:28:00 CDT, Duration: 30 day, Stop date: 14:27:00 CDT Notes: (Same as: Roxicodone) Start Date: 01/03/16 Stop Date: 01/03/16 Status: Discontinued oxyCODONE 5 mg immediate release 10 mg, 2 tab, Route: PO, Drug form: TAB, Q6H, Dosing Weight 65.909, kg, PRN Pain Score 7-10, Start date: 01/01/16 0:55:00 CDT, Duration: 30 day, Stop date: 01/03 04/19 0:54:00 CDT Notes: (Same as: Roxicodone) Start Date: 01/01/16 Stop Date: 01/01/16 Status: Discontinued oxyCODONE 5 mg immediate release 2.5 mg, 0.5 tab, Route: PO, Drug form: TAB, Q2H, Dosing Weight 70.2, kg, PRN Maxwell n Score 7-10, Start date: 01/01/16 11:24:00 CDT, Duration: 30 day, Stop date: 11:23:00 CDT Notes: (Same as: Roxicodone) Start Date: 01/01/16 Stop Date: 01/03/16 Status: Discontinued oxyCODONE 5 mg immediate release 5 mg, 1 tab, Route: PO, Drug form: TAB, Q4H, Dosing Weight 70.2, kg, Start date: 01/01/16 12:00:00 CDT, Duration: 30 day, Stop date: 01/31/16 8:00:00 CDT Notes: (Same as: Roxicodone) Start Date: 01/01/16 Stop Date: 01/02/16 Status: Discontinued oxyCONTIN 20 mg, 1 tab, Route: PO, Drug form: ERTAB, Q8H, Dosing Weight 70.2, kg, Start da te: 01/05/16 17:10:00 CDT, Duration: 30 day, Stop date: 02/04/16 16:00:00 CDT Notes: Do not crush or chew.(Same as: OxyContin) Start Date: 01/05/16 Stop Date: 01/08/16 Status: Discontinued oxyCONTIN 10 mg, 1 tab, Route: PO, Drug form: ERTAB, Q12H, Dosing Weight 70.2, kg, Start d ate: 01/02/16 21:00:00 CDT, Duration: 30 day, Stop date: 02/01/16 9:00:00 CDT Notes: Do not crush or chew.(Same as: OxyContin) Start Date: 01/02/16 Stop Date: 01/03/16 Status: Discontinued oxyCONTIN 20 mg, 1 tab, Route: PO, Drug form: ERTAB, Q12H, Dosing Weight 70.2, kg, Start d ate: 01/03/16 21:00:00 CDT, Duration: 30 day, Stop date: 02/02/16 9:00:00 CDT Notes: Do not crush or chew.(Same as: OxyContin) Start Date: 01/03/16 Stop Date: 01/05/16 Status: Discontinued pantoprazole 40 mg, 1 tab, Route: PO, Drug form: ECTAB, Before Dinner, Dosing Weight 65.909, kg, Start date: 01/01/16 16:30:00 CDT, Duration: 30 day, Stop date: 01/30/16 16: 30:00 CDT Notes: Tablet should not be chewed or crushed.(Same as: Protonix) Start Date: 01/01/16 Stop Date: 01/02/16 Status: Discontinued pantoprazole 40 mg oral enteric coated tablet 40 mg = 1 tab, PO, Before Dinner, # 90 tab, 0 Refill(s) Start Date: 01/10/16 Status: Ordered Protonix 40 mg, 1 tab, Route: PO, Drug form: ECTAB, Before Dinner, Start date: 01/11/16 1 6:30:00 CDT, Duration: 30 day, Stop date: 02/09/16 16:30:00 CDT Notes: Tablet should not be chewed or crushed.(Same as: Protonix) Start Date: 01/11/16 Stop Date: 01/12/16 Status: Discontinued sodium chloride 0.9% INJ 250 mL 250 mL, Rate: 50 ml/hr, Infuse over: 5 hr, Route: IV, Dosing Weight 70.2 kg, Tot al Volume: 250, Start date: 01/11/16 17:06:00 CDT, Duration: 1 doses or times, S top date: 01/11/16 22:05:00 CDT Start Date: 01/11/16 Stop Date: 01/11/16 Status: Discontinued sodium chloride 0.9% INJ 250 mL 250 mL, Rate: 50 ml/hr, Infuse over: 5 hr, Route: IV, Dosing Weight 70.2 kg, Tot al Volume: 250, Start date: 01/11/16 17:12:00 CDT, Duration: 1 doses or times, S top date: 01/11/16 22:11:00 CDT Start Date: 01/11/16 Stop Date: 01/11/16 Status: Completed Tylenol with Codeine #3 oral tablet 2 tab, PO, Q4H, PRN Pain, X 7 day, # 84 tab, 0 Refill(s) Start Date: 01/10/16 Stop Date: 01/17/16 Status: Ordered vancomycin + Sodium Chloride 0.9% IV 500 mL 2,000 mg, Route: IVPB, ONCE, Dosing Weight 65.909, kg, Priority: STAT, Start river e: 12/31/15 19:39:00 CDT, Stop date: 12/31/15 19:39:00 CDT Notes: TIME CRITICAL MEDICATION(Same As: Vancocin)Infusion rate< 1000 mg: infuse over 1 [id number] - 1500 mg: infuse over 1.5 hoursVancomycin FOR IV SET [id number] - 2000 mg: infuse over 2 hours> 2001 mg: infuse over 2.5 hours MEDICATION WASTE Product Size: 1000 mgProduct Wasted: 0 mg Start Date: 12/31/15 Stop Date: 12/31/15 Status: Completed Xanax 1 mg oral tablet 1 mg, 2 tab, Route: PO, Drug form: TAB, BID, Dosing Weight 70.2, kg, Start date: 01/02/16 9:00:00 CDT, Duration: 30 day, Stop date: 01/31/16 17:00:00 CDT Notes: With food or milk(Same as: Xanax) Start Date: 01/02/16 Stop Date: 01/12/16 Status: Discontinued Xanax 1 mg oral tablet 1 mg = 1 tab, PO, BID, 0 Refill(s) Start Date: 01/01/16 Status: Ordered Results BLOOD BANK RESULTS 1 2 3 Most recent to oldest [Reference Range]: A POS *Unknown* (01/04/16 5:29 AM) ABO/Rh Negative (01/04/16 5:29 AM) Antibody Scrn ELECTROLYTES 1 2 3 Most recent to oldest [Reference Range]: 138 mEq/L (01/12/16 1:36 AM) 140 mEq/L (01/11/16 2:11 AM) 140 mEq/L (01/10/16 9:46 AM) Sodium Lvl [135-145 mEq/L] 5.0 mEq/L (01/12/16 1:36 AM) 5.5 mEq/L *HI* (01/11/16 2:11 AM) 4.9 mEq/L (01/10/16 9:46 AM) Potassium Lvl [3.5-5.1 mEq/L] 110 mEq/L *HI* (01/12/16 1:36 AM) 109 mEq/L (01/11/16 2:11 AM) 108 mEq/L (01/10/16 9:46 AM) Chloride Lvl [95-109 mEq/L] 20 mEq/L *LOW* (01/12/16 1:36 AM) 21 mEq/L *LOW* (01/11/16 2:11 AM) 21 mEq/L *LOW* (01/10/16 9:46 AM) CO2 [24-32 mEq/L] 13.0 mEq/L (01/12/16 1:36 AM) 15.5 mEq/L (01/11/16 2:11 AM) 15.9 mEq/L (01/10/16 9:46 AM) AGAP [10.0-20.0 mEq/L] CHEM PANEL 1 2 3 Most recent to oldest [Reference Range]: 3.00 mg/dL *HI* (01/12/16 1:36 AM) 3.71 mg/dL *HI* (01/11/16 2:11 AM) 3.92 mg/dL *HI* (01/10/16 9:46 AM) Creatinine Lvl [0.50-1.40 mg/dL] 27 mL/min/1.73m2 1 *NA* (01/12/16 1:36 AM) 21 mL/min/1.73m2 2 *NA* (01/11/16 2:11 AM) 19 mL/min/1.73m2 3 *NA* (01/10/16 9:46 AM) eGFR 34 mg/dL *HI* (01/12/16 1:36 AM) 42 mg/dL *HI* (01/11/16 2:11 AM) 45 mg/dL *HI* (01/10/16 9:46 AM) BUN [7-22 mg/dL] 9 (01/01/16 5:53 AM) B/C Ratio [6-25] 105 mg/dL *HI* (01/12/16 1:36 AM) 81 mg/dL (01/11/16 2:11 AM) 60 mg/dL *LOW* (01/10/16 9:46 AM) Glucose Lvl [70-99 mg/dL] 6.3 g/dL *LOW* (01/01/16 5:53 AM) Total Protein [6.4-8.4 g/dL] 1.9 g/dL *LOW* (01/01/16 5:53 AM) Albumin Lvl [3.5-5.0 g/dL] 4.4 g/dL *HI* (01/01/16 5:53 AM) Globulin [2.0-4.0 g/dL] 0.4 *LOW* (01/01/16 5:53 AM) A/G Ratio [0.7-1.6] 9.8 mg/dL (01/12/16 1:36 AM) 9.4 mg/dL (01/11/16 2:11 AM) 9.6 mg/dL (01/10/16 9:46 AM) Calcium Lvl [8.5-10.5 mg/dL] 3.9 mg/dL (01/12/16 1:36 AM) 5.5 mg/dL *HI* (01/11/16 2:11 AM) 5.7 mg/dL *HI* (01/10/16 9:46 AM) Phosphorus [2.5-4.5 mg/dL] 1.6 mg/dL *LOW* (01/12/16 1:36 AM) 1.7 mg/dL *LOW* (01/11/16 2:11 AM) 1.8 mg/dL (01/10/16 9:46 AM) Magnesium Lvl [1.8-2.4 mg/dL] 20 unit/L (01/01/16 5:53 AM) ALT [0-65 unit/L] 23 unit/L (01/01/16 5:53 AM) AST [0-37 unit/L] 63 unit/L (01/01/16 5:53 AM) Alk Phos [39-136 unit/L] 0.1 mg/dL *LOW* (01/01/16 5:53 AM) Bili Total [0.2-1.3 mg/dL] 0.4 mMol/L *LOW* (12/31/15 8:35 PM) Lactic Acid Lvl [0.5-2.2 mMol/L] 0.06 ng/mL (12/31/15 8:35 PM) Procalcitonin Lvl [0.00-0.10 ng/mL] 1Result Comment: [...] 3 Most recent to oldest [Reference Range]: 191 unit/L (01/10/16 9:46 AM) Total CK [12-191 unit/L] PARATHYROID PROFILE 1 2 3 Most recent to oldest [Reference Range]: 1.33 mMol/L *HI* (01/12/16 1:36 AM) 1.00 mMol/L *LOW* (01/11/16 2:11 AM) 1.25 mMol/L (01/09/16 5:02 PM) Ca Ion WB [1.05-1.25 mMol/L] 1.24 mMol/L (01/12/16 1:36 AM) 0.97 mMol/L *LOW* (01/11/16 2:11 AM) 1.19 mMol/L (01/09/16 5:02 PM) Ca Norm WB [1.05-1.25 mMol/L] DRUG SCREEN 1 2 3 Most recent to oldest [Reference Range]: Negative *NA* (01/10/16 12:16 PM) U Methadone Scr [Negative] Negative *NA* (01/10/16 12:16 PM) U Propoxyph Scr [Negative] Negative *NA* (01/10/16 12:16 PM) Negative *NA* (01/08/16 9:26 PM) Negative *NA* (01/07/16 12:25 PM) U Amph Scr [Negative] Negative *NA* (01/10/16 12:16 PM) Negative *NA* (01/08/16 9:26 PM) Negative *NA* (01/07/16 12:25 PM) U Chelsie Scr [Negative] Positive *ABN* (01/10/16 12:16 PM) Positive *ABN* (01/08/16 9:26 PM) Positive *ABN* (01/07/16 12:25 PM) U Benzodia Scr [Negative] Negative *NA* (01/10/16 12:16 PM) Negative *NA* (01/08/16 9:26 PM) Negative *NA* (01/07/16 12:25 PM) U Cocaine Scr [Negative] Positive *ABN* (01/10/16 12:16 PM) Positive *ABN* (01/08/16 9:26 PM) Positive *ABN* (01/07/16 12:25 PM) U Opiate Scr [Negative] Negative *NA* (01/10/16 12:16 PM) Negative *NA* (01/08/16 9:26 PM) Negative *NA* (01/07/16 12:25 PM) U Phencyc Scr [Negative] Positive *ABN* (01/10/16 12:16 PM) Positive *ABN* (01/08/16 9:26 PM) Positive *ABN* (01/07/16 12:25 PM) U Cannab Scr [Negative] See Note (01/10/16 12:16 PM) See Note (01/08/16 9:26 PM) See Note (01/07/16 12:25 PM) UDS Note URINE CHEM 1 2 3 Most recent to oldest [Reference Range]: 30.40 mg/dL *NA* (01/08/16 6:30 PM) U Creatinine 108.5 mg/dL *NA* (01/08/16 6:30 PM) U Protein 3.6 *NA* (01/08/16 6:30 PM) U Prot/Creat 69 mEq/L *NA* (01/08/16 2:47 PM) U Sodium 27.5 mEq/L *NA* (01/08/16 2:47 PM) U Potassium 66 mEq/L *NA* (01/08/16 2:47 PM) U Chloride 0-2 *ABN* (01/08/16 6:30 PM) U Eos [None Seen] URINE AND STOOL 1 2 3 Most recent to oldest [Reference Range]: Slight *ABN* (01/08/16 2:47 PM) Cloudy *ABN* (12/31/15 8:46 PM) UA Turbidity [Clear] Light Yellow *NA* (01/08/16 2:47 PM) Yellow *NA* (12/31/15 8:46 PM) UA Color [Yellow] 7.5 (01/08/16 2:47 PM) UA pH [5.0-8.0] 6.0 (12/31/15 8:46 PM) UA pH [5.0-8.0] 1.009 (01/08/16 2:47 PM) UA Spec Grav [<=1.030] 1.020 (12/31/15 8:46 PM) UA Spec Grav [<=1.030] Negative mg/dL *NA* (01/08/16 2:47 PM) UA Glucose [Negative mg/dL] Negative (12/31/15 8:46 PM) UA Glucose [Negative] Moderate *ABN* (01/08/16 2:47 PM) Moderate *ABN* (12/31/15 8:46 PM) UA Blood [Negative] Negative mg/dL *NA* (01/08/16 2:47 PM) UA Ketones [Negative mg/dL] Negative *NA* (12/31/15 8:46 PM) UA Ketones [Negative] 70 mg/dL *ABN* (01/08/16 2:47 PM) 100 mg/dL *ABN* (12/31/15 8:46 PM) UA Protein [Negative mg/dL] <=1.0 mg/dL *NA* (01/08/16 2:47 PM) UA Urobilinogen [0.1-1.0 mg/dL] 0.2 EU/dL (12/31/15 8:46 PM) UA Urobilinogen [0.1-1.0 EU/dL] Negative *NA* (01/08/16 2:47 PM) Negative *NA* (12/31/15 8:46 PM) UA Bili [Negative] Large *ABN* (01/08/16 2:47 PM) Large *ABN* (12/31/15 8:46 PM) UA Leuk Est [Negative] Negative (01/08/16 2:47 PM) Positive *ABN* (12/31/15 8:46 PM) UA Nitrite [Negative] 41 /HPF *HI* (01/08/16 2:47 PM) UA WBC [0-5 /HPF] Packed *ABN* (12/31/15 8:46 PM) UA WBC [None Seen] 4 /HPF *HI* (01/08/16 2:47 PM) 11-20 /HPF *ABN* (12/31/15 8:46 PM) UA RBC [0-2 /HPF] Moderate /HPF *ABN* (01/08/16 2:47 PM) Many /HPF (12/31/15 8:46 PM) UA Bacteria [None Seen /HPF] RARE *NA* (01/08/16 2:47 PM) UA Sq Epi Occasional /LPF (12/31/15 8:46 PM) UA Sq Epi [Few /LPF] Occasional /HPF *NA* (01/08/16 2:47 PM) UA Amorph Michelle [None Seen /HPF] Few /LPF *NA* (01/08/16 2:47 PM) UA Mucus [None Seen /LPF] Performed *NA* (01/08/16 2:47 PM) Micro? IMMUNOLOGY 1 2 3 Most recent to oldest [Reference Range]: 184 mg/dL (01/09/16 2:42 AM) C3 Complement [88-201 mg/dL] 47 mg/dL (01/09/16 2:42 AM) C4 Complement [16-47 mg/dL] 97.9 mg/L *HI* (12/31/15 8:46 PM) CRP [<=2.9 mg/L] Negative *NA* (01/04/16 10:20 AM) HIV Ag/Ab 4th Gen [Negative] Negative *NA* (01/01/16 1:52 AM) HIV 1/2 Ab [Negative] HEMATOLOGY 1 2 3 Most recent to oldest [Reference Range]: 8.4 K/CMM (01/12/16 1:36 AM) 10.4 K/CMM (01/11/16 2:11 AM) 6.4 K/CMM (01/10/16 9:46 AM) WBC [3.7-10.4 K/CMM] 3.52 M/CMM *LOW* (01/12/16 1:36 AM) 3.87 M/CMM *LOW* (01/11/16 2:11 AM) 3.80 M/CMM *LOW* (01/10/16 9:46 AM) RBC [4.70-6.10 M/CMM] 9.5 g/dL *LOW* (01/12/16 1:36 AM) 10.7 g/dL *LOW* (01/11/16 2:11 AM) 10.2 g/dL *LOW* (01/10/16 9:46 AM) Hgb [14.0-18.0 g/dL] 29.9 % *LOW* (01/12/16 1:36 AM) 34.7 % *LOW* (01/11/16 2:11 AM) 32.2 % *LOW* (01/10/16 9:46 AM) Hct [42.0-54.0 %] 84.8 fL (01/12/16 1:36 AM) 89.6 fL (01/11/16 2:11 AM) 84.6 fL (01/10/16 9:46 AM) MCV [80.0-94.0 fL] 27.0 pg (01/12/16 1:36 AM) 27.5 pg (01/11/16 2:11 AM) 26.9 pg *LOW* (01/10/16 9:46 AM) MCH [27.0-31.0 pg] 31.8 g/dL *LOW* (01/12/16 1:36 AM) 30.7 g/dL *LOW* (01/11/16 2:11 AM) 31.7 g/dL *LOW* (01/10/16 9:46 AM) MCHC [32.0-36.0 g/dL] 18.2 % *HI* (01/12/16 1:36 AM) 19.0 % *HI* (01/11/16 2:11 AM) 18.5 % *HI* (01/10/16 9:46 AM) RDW [11.5-14.5 %] 349 K/CMM (01/12/16 1:36 AM) 339 K/CMM (01/11/16 2:11 AM) 389 K/CMM (01/10/16 9:46 AM) Platelet [133-450 K/CMM] 7.6 fL (01/12/16 1:36 AM) 8.3 fL (01/11/16 2:11 AM) 7.3 fL *LOW* (01/10/16 9:46 AM) MPV [7.4-10.4 fL] 50.7 % (01/12/16 1:36 AM) 60.6 % (01/11/16 2:11 AM) 49.2 % (01/10/16 9:46 AM) Segs [45.0-75.0 %] 34.8 % (01/12/16 1:36 AM) 24.6 % (01/11/16 2:11 AM) 31.5 % (01/10/16 9:46 AM) Lymphocytes [20.0-40.0 %] 8.7 % (01/12/16 1:36 AM) 8.8 % (01/11/16 2:11 AM) 12.0 % (01/10/16 9:46 AM) Monocytes [2.0-12.0 %] 4.6 % *HI* (01/12/16 1:36 AM) 5.0 % *HI* (01/11/16 2:11 AM) 5.9 % *HI* (01/10/16 9:46 AM) Eosinophils [0.0-4.0 %] 1.2 % *HI* (01/12/16 1:36 AM) 1.0 % (01/11/16 2:11 AM) 1.4 % *HI* (01/10/16 9:46 AM) Basophils [0.0-1.0 %] 4.3 K/CMM (01/12/16 1:36 AM) 6.3 K/CMM (01/11/16 2:11 AM) 3.2 K/CMM (01/10/16 9:46 AM) Segs-Bands # [1.5-8.1 K/CMM] 2.9 K/CMM (01/12/16 1:36 AM) 2.5 K/CMM (01/11/16 2:11 AM) 2.0 K/CMM (01/10/16 9:46 AM) Lymphocytes # [1.0-5.5 K/CMM] 0.7 K/CMM (01/12/16 1:36 AM) 0.9 K/CMM *HI* (01/11/16 2:11 AM) 0.8 K/CMM (01/10/16 9:46 AM) Monocytes # [0.0-0.8 K/CMM] 0.4 K/CMM (01/12/16 1:36 AM) 0.5 K/CMM (01/11/16 2:11 AM) 0.4 K/CMM (01/10/16 9:46 AM) Eosinophils # [0.0-0.5 K/CMM] 0.1 K/CMM (01/12/16 1:36 AM) 0.1 K/CMM (01/11/16 2:11 AM) 0.1 K/CMM (01/10/16 9:46 AM) Basophils # [0.0-0.2 K/CMM] >100 mm/hr *ABN* (12/31/15 8:46 PM) Sed Rate [0-15 mm/hr] 13.7 seconds (01/04/16 3:31 AM) 14.3 seconds (01/02/16 4:50 AM) 14.9 seconds *HI* (01/01/16 5:53 AM) PT [12.0-14.7 seconds] 1.02 (01/04/16 3:31 AM) 1.08 (01/02/16 4:50 AM) 1.14 (01/01/16 5:53 AM) INR [0.85-1.17] 28.7 seconds (01/09/16 5:02 PM) 35.0 seconds (01/04/16 3:31 AM) 35.1 seconds (01/02/16 4:50 AM) PTT [22.9-35.8 seconds] MOLECULAR DIAGNOSTIC 1 2 3 Most recent to oldest [Reference Range]: [id number] IU/mL *NA* (01/09/16 2:42 AM) HCV RNA VirLoad 6.2 IU/mL *NA* (01/09/16 2:42 AM) HCV RNA Log10 Immunizations Given and [...] Yes Assessment and Plan Extracted from: Title: ORS Brief Progress Note Author: Luis Alberto Chew Date: 01/12/16 Kamala MCCAULEY ORS Brief Progress Note: S: Patient seen [...] with wound care clinic and ORS. Extracted from: Title: Medicine Team B Discharge Author: Juany Mendez MD ate: 01/12/16 Summary Discharge Summary Name: Maximo Gastelum Jr Admission [...] CMP, ESR, CRP and fax results to [phone] (Dr. Grace) AMY - pt developed AMY [...] medications; pt switched from oxycodone to methadone 2/2 pain medication abuse (chewed oxycodone IR) - [...] been provided resources and pt expressed understanding. VitalsTmp(F)[id number] 01/11 09:[id number]--- 01/11 03:[id number]/894364--- 01/11 00:2697.4747482/885659--- 01/10 19:2497.8659782/1938383--- 01/10 15:4097.2405531/[id number]--- 24 Hr Tmax: 98.3F (36.83c) at 01/11 03:2 3Vital Signs are the last 5 in the [...] nephrology, wound care, urology, orthopedic surgery Extracted from: Title: PRS consult Author: Randy Ro MD Date : 01/10/16 Impression and Plan 30 y/o male with multiple medical proble ms presenting with dehiscence of LLE BKA wound - Currently the wound is not appropriate for skin graft with exposed tendon, but the wound vac will assist with granulation. - continue wound vac per orthopedics. - elevate BKA stump when in bed Extracted from: Title: Medicine Team B Admission Author: Juany Mendez MD ate: 01/01/16 H&P Medicine Team B Admission H&P Patient [facility], MAXIMO CHAVARRIAE30y (: 1985) [place] Attending: Bhavin Lombardi [facility]: Service: Emergency Medicine Service CHIEF COMPLAINT: L [...] sacral decub ulcers and evidence of L pyelon ephritis. s/p vanc and 3L NS bolus in ED. Orthopedic surgery was consulted. PAST MEDICAL HISTORY: Fall Hepatitis C Toe gangrene Drug used Osteomyelitis L foot PAST SURGICAL HISTORY: Debridement of sacral pressure ulcer: 06/03/15 Colonoscopy: 2008 Nephrectomy: 2006 Laparoscopy Amputation Wound care SOCIAL HISTORY: Employment/School [...] HISTORY: No qualifying data available Allergies (4) ActiveReaction traMADolNone documented LatexNone documented naproxenNone documented NKFANone documented Medications (5) Active Scheduled Meds: None [...] pain PHYSICAL EXAMINATION: Vital Signs - Reviewed VitalsTmp(F)[id number] 12/30 22:08----92-------100--- 12/30 20:28----62455/70--98--- 12/30 19:2598.1019294/699379--- 24 Hr Tmax: 98.2F (36.78c) at 12/30 19:2 5Vital Signs are the last 5 in the past 48 hours. DateWt(kg)Wt(lb)Ht(cm)Ht(in)Method 12/30 (initial) 65.91 145.00Estimated 82.88 72.00Stated GENERAL: AAO x 3 , pale, lying [...] BLE DATA: 24hr Labs 12/30 2045 Sed Rate>100 CRP97.9 H UA ColorYellow UA TurbidityCloudy UA Spec Grav1.020 UA pH6.0 UA Awozbas459 UA GlucoseNegative UA KetonesNegative UA BiliNegative UA BloodModerate UA Urobilinogen0.2 UA NitritePositive UA Leuk EstLarge UA YGZ14-33 UA WBCPacked UA BacteriaMany UA Sq EpiOccasional 12/30 2034 Glucose Lvl87 BUN11 Creatinine Lvl1.16 Sodium Lgo647 Potassium Lvl4.0 Chloride Whu119 CO227 AGAP9.0 L Calcium Lvl8.6 eGFR84 Lactic Acid Lvl0.4 L Procalcitonin Lvl0.06 WBC8.9 RBC3.08 L Hgb8.3 L Hct25.8 L MCV83.8 MCH26.8 L MCHC32.0 RDW18.0 H Vwtcsmbo582 MPV7.2 L Segs58.8 Otpnpuzww70.5 Pfgantdotfd17.9 Eosinophils4.1 H Basophils0.7 Segs-Bands #5.3 Lymphocytes #2.3 Monocytes #0.9 H Eosinophils #0.4 Basophils #0.1 Imaging: CTAP w/ contrast : 1. Bilateral [...]
--- OUTSIDE RECORDS SUMMARY | 2020-03-18 10:21 | XMS REPORT | Summary of Care ---
Author Author [facility] Organization [facility] Address Unknown Phone Unavailable Encounter MOJGAN Jacques(AMARI) [id number] Date(s): 10/19/15 - 10/20/15 [facility] [address] [place] [address]- Discharge Disposition: Home Attending Physician: Cash Marques MD Admitting Physician: Cash Marques MD Vital Signs 1 2 3 Most recent to oldest [Reference Range]: 182.88 cm (10/19/15 4:54 PM) Height 97.8 DegF (10/20/15 4:00 PM) 98.6 DegF (10/20/15 12:00 PM) 97.6 DegF (10/20/15 8:00 AM) Temperature Oral [96.4-99.1 DegF] 124/87 mmHg (10/20/15 4:00 PM) 107/68 mmHg (10/20/15 12:00 PM) 125/76 mmHg (10/20/15 8:00 AM) Blood Pressure [90-140/60-90 mmHg] 18 BRMIN (10/20/15 4:00 PM) 18 BRMIN (10/20/15 12:00 PM) 18 BRMIN (10/20/15 8:00 AM) Respiratory Rate [14-20 BRMIN] 103 bpm *HI* (10/20/15 4:00 PM) 121 bpm *HI* (10/20/15 12:00 PM) 118 bpm *HI* (10/20/15 8:45 AM) Peripheral Pulse Rate [60-100 bpm] 77.273 kg (10/19/15 4:54 PM) Weight 23.1 m2 (10/19/15 4:54 PM) Body Mass Index Problem List Condition [...] Acinetobacter collected from urine 4Problem added by Siren[employer] Expert. 5Ecoli ESBL isolated from urine 08/08/2015 6SACRUM, 05/27/2015 7URINE, 06/25/2014 810-13-12 E. COLI + ESBL: left & right foot wnd 9MDRO, URINE, 02/11/2012 10MDRO, URINE, 11/06/2011 11Problem added by [employer] Expert. 12Blood, 10/07/2015 13R. klebsiella pneumon isolated [...] 1-3/Temp > 100.4 F, Start date: 10/19/15 16:29:00, Duration: 30 day, Stop date: 11/18/15 16:28:00 Notes: Do not exceed 4 gm/day. (Same as: Tylenol) Start Date: 10/19/15 Stop Date: 10/20/15 Status: Discontinued acetaminophen-hydrocodone 325 mg-10 mg oral tablet 1 tab, Route: PO, Drug Form: TAB, Q6H, PRN Pain Score 7-10, Start date: 10/19/15 19:40:00, Duration: 30 day, Stop date: 11/18/15 19:39:00 Notes: Do not exceed 4gm/day of acetaminophen. (Same as: [place] 325/10) Start Date: 10/19/15 Stop Date: 10/20/15 Status: Discontinued acetaminophen-oxycodone 325 mg-10 mg oral tablet 2 tab, PO, Q6H, PRN for pain, 0 Refill(s) Start Date: 10/19/15 Stop Date: 10/20/15 Status: Discontinued ALPRAZOLam 2 mg oral tablet 2 mg = 1 tab, PO, TID, PRN Anxiety, 0 Refill(s) Start Date: 10/19/15 Stop Date: 10/20/15 Status: Discontinued amitriptyline 50 mg, PO, Bedtime, 0 Refill(s) Start Date: 10/19/15 Stop Date: 10/20/15 Status: Discontinued baclofen 10 mg oral tablet 10 mg = 1 tab, PO, Q6H, 0 Refill(s) Start Date: 10/19/15 Stop Date: 10/20/15 Status: Discontinued ceftazidime-avibactam 2.5 gm, IV, Q8H, 0 Refill(s) Start Date: 10/19/15 Stop Date: 10/20/15 Status: Discontinued ceftazidime-avibactam 2.5 gm, Route: IV, Q8H, Dosing Weight 72.727, kg, Start date: 10/19/15 0:00:00, Stop date: 10/20/15 16:00:00 Start Date: 10/19/15 Stop Date: 10/19/15 Status: Deleted ceftazidime-avibactam + Sodium Chloride 0.9% IV 100 mL 2.5 gm, Route: IVPB, ABXQ8H, Start date: 10/19/15 17:00:00, Duration: 2 doses or times, Stop date: 10/20/15 1:00:00 Notes: (Same as: Avycaz)Non-formulary Start Date: 10/19/15 Stop Date: 10/20/15 Status: Completed collagenase topical 1 appl, Route: TOP, Daily, Drug form: OINT, Start date: 10/20/15 9:00:00, Durati on: 30 day, Stop date: 11/18/15 9:00:00 Notes: (Same As: Santyl) Start Date: 10/20/15 Stop Date: 10/20/15 Status: Discontinued collagenase topical 250 units/g ointment 1 appl, TOP, Daily, # 30 gm, 0 Refill(s) Start Date: 10/20/15 Status: Ordered Dilaudid 4 mg, 2 tab, Route: PO, Drug form: TAB, Q6H, PRN Pain Score 7-10, Start date: 19:41:00, Duration: 30 day, Stop date: 11/18/15 19:40:00 Notes: (Same as: Dilaudid) Start Date: 10/19/15 Stop Date: 10/20/15 Status: Discontinued Dilaudid 4 mg oral tablet 2 tabs, PO, Q6H, PRN Pain Score 7-10, 0 Refill(s) Start Date: 10/19/15 Stop Date: 10/20/15 Status: Discontinued docusate 100 mg, 1 cap, Route: PO, Drug form: CAP, BID, Dosing Weight 72.727, kg, PRN Con stipation, Start date: 10/19/15 13:05:00, Duration: 30 day, Stop date: 11/18/15 13:04:00 Notes: (Same as: Colace) (Do Not Crush) Start Date: 10/19/15 Stop Date: 10/20/15 Status: Discontinued docusate sodium 50 mg oral capsule 50 mg, 1 cap, Route: PO, Drug form: CAP, BID, PRN Constipation, Start date: 10/02 02/16 16:38:00, Duration: 30 day, Stop date: 11/18/15 16:37:00 Notes: (Same as: Colace) (Do Not Crush) Start Date: 10/19/15 Stop Date: 10/20/15 Status: Discontinued docusate-senna 50 mg-8.6 mg oral tablet 1 tab, Route: PO, Drug Form: TAB, Dosing Weight 72.727, kg, BID, PRN Constipatio n, Start date: 10/19/15 16:29:00, Duration: 30 day, Stop date: 11/18/15 16:28:00 Start Date: 10/19/15 Stop Date: 10/19/15 Status: Deleted gabapentin 100 mg, PO, Q8H, 0 Refill(s) Start Date: 10/19/15 Stop Date: 10/20/15 Status: Discontinued heparin 5,000 unit, 1 mL, Route: SUB-Q, Drug form: INJ, Q8H, Dosing Weight 72.727, kg, S tart date: 10/19/15 16:00:00, Duration: 30 day, Stop date: 11/18/15 8:00:00 Notes: porcine heparin Start Date: 10/19/15 Stop Date: 10/20/15 Status: Discontinued levofloxacin 750 mg, 1 tab, Route: PO, Drug form: TAB, CTFM21H, Dosing Weight 72.727, kg, Sta rt date: 10/19/15 17:00:00, Duration: 30 day, Stop date: 11/17/15 17:00:00 Notes: Do not give w/antacids, dairy pdt & mineralsTake 1 hr before or 2 hr after dairy products Start Date: 10/19/15 Stop Date: 10/20/15 Status: Discontinued Lidocaine Viscous 2% mucous membrane solution 5 mL, Route: TOP, QID-Before Meals, Drug form: SOLN, Start date: 10/19/15 16:30: 00, Duration: 30 day, Stop date: 11/18/15 11:30:00 Notes: (Same as: Xylocaine Viscous) Start Date: 10/19/15 Stop Date: 10/20/15 Status: Discontinued normal saline inhalation solution 10 mL, Route: IVP, Drug Form: INJ, Dosing Weight 72.727, kg, PRN, PRN Line Flush , Start date: 10/19/15 16:29:00, Duration: 30 day, Stop date: 11/18/15 16:28:00 Notes: (Same as: BD Posiflush) Start Date: 10/19/15 Stop Date: 10/20/15 Status: Discontinued ondansetron 4 mg, 2 mL, Route: IVP, Drug form: INJ, Q8H, Dosing Weight 72.727, kg, PRN Nause a & Vomiting, Start date: 10/19/15 13:05:00, Duration: 30 day, Stop date: 11/18/15 13:04:00 Notes: (Same as: Klaus) MEDICATION WASTE Product Size: 4 mgProduct Was reinaldo: ___ mg Start Date: 10/19/15 Stop Date: 10/20/15 Status: Discontinued pantoprazole 40 mg, 1 tab, Route: PO, Drug form: ECTAB, Before Dinner, Dosing Weight 72.727, kg, Start date: 10/19/15 16:30:00, Duration: 30 day, Stop date: 11/17/15 16:30:0 0 Notes: Tablet should not be chewed or crushed.(Same as: Protonix) Start Date: 10/19/15 Stop Date: 10/20/15 Status: Discontinued senna 8.6 mg oral tablet 8.6 mg, 1 tab, Route: PO, Drug Form: TAB, Dosing Weight 72.727, kg, BID, PRN Con stipation, Start date: 10/19/15 16:29:00, Duration: 30 day, Stop date: 11/18/15 16:28:00 Notes: (Same as: Se) Start Date: 10/19/15 Stop Date: 10/20/15 Status: Discontinued Tylenol with Codeine #3 oral tablet 1 tab, PO, Q4H, PRN Pain, X 7 day, # 42 tab, 0 Refill(s) Start Date: 10/20/15 Stop Date: 10/27/15 Status: Ordered Results ELECTROLYTES Most recent to 1 oldest [Reference Range]: Sodium Lvl [135-145 140 mEq/L mEq/L] (10/20/15 4:11 AM) Potassium Lvl 4.5 mEq/L [3.5-5.1 mEq/L] (10/20/15 4:11 AM) Chloride Lvl [95-109 109 mEq/L mEq/L] (10/20/15 4:11 AM) CO2 [24-32 mEq/L] 21 mEq/L *LOW* (10/20/15 4:11 AM) AGAP [10.0-20.0 14.5 mEq/L mEq/L] (10/20/15 4:11 AM) CHEM PANEL Most recent to 1 oldest [Reference Range]: Creatinine Lvl 1.10 mg/dL [0.50-1.40 mg/dL] (10/20/15 4:11 AM) eGFR 90 mL/min/1.73m2 1 *NA* (10/20/15 4:11 AM) BUN [7-22 mg/dL] 16 mg/dL (10/20/15 4:11 AM) B/C Ratio [6-25] 15 (10/20/15 4:11 AM) Glucose Lvl [70-99 87 mg/dL mg/dL] (10/20/15 4:11 AM) Total Protein 8.5 g/dL [6.4-8.4 g/dL] *HI* (10/20/15 4:11 AM) Albumin Lvl [3.5-5.0 2.3 g/dL g/dL] *LOW* (10/20/15 4:11 AM) Globulin [2.0-4.0 6.2 g/dL g/dL] *HI* (10/20/15 4:11 AM) A/G Ratio [0.7-1.6] 0.4 *LOW* (10/20/15 4:11 AM) Calcium Lvl 8.8 mg/dL [8.5-10.5 mg/dL] (10/20/15 4:11 AM) Magnesium Lvl 1.6 mg/dL [1.8-2.4 mg/dL] *LOW* (10/20/15 4:11 AM) ALT [0-65 unit/L] 29 unit/L (10/20/15 4:11 AM) AST [0-37 unit/L] 25 unit/L (10/20/15 4:11 AM) Alk Phos [39-136 122 unit/L unit/L] (10/20/15 4:11 AM) Bili Total [0.2-1.3 0.2 mg/dL mg/dL] (10/20/15 4:11 AM) 1Result Comment: The eGFR is calculated [...] estimated BMI. HEMATOLOGY Most recent to 1 oldest [Reference Range]: WBC [3.7-10.4 K/CMM] 8.2 K/CMM (10/20/15 4:11 AM) RBC [4.70-6.10 3.01 M/CMM M/CMM] *LOW* (10/20/15 4:11 AM) Hgb [14.0-18.0 g/dL] 8.8 g/dL *LOW* (10/20/15 4:11 AM) Hct [42.0-54.0 %] 27.3 % *LOW* (10/20/15 4:11 AM) MCV [80.0-94.0 fL] 90.6 fL (10/20/15 4:11 AM) MCH [27.0-31.0 pg] 29.0 pg (10/20/15 4:11 AM) MCHC [32.0-36.0 32.1 g/dL g/dL] (10/20/15 4:11 AM) RDW [11.5-14.5 %] 21.5 % *HI* (10/20/15 4:11 AM) Platelet [133-450 550 K/CMM K/CMM] *HI* (10/20/15 4:11 AM) MPV [7.4-10.4 fL] 7.8 fL (10/20/15 4:11 AM) Segs [45.0-75.0 %] 61.2 % (10/20/15 4:11 AM) Lymphocytes 24.8 % [20.0-40.0 %] (10/20/15 4:11 AM) Monocytes [2.0-12.0 11.1 % %] (10/20/15 4:11 AM) Eosinophils [0.0-4.0 1.6 % %] (10/20/15 4:11 AM) Basophils [0.0-1.0 1.3 % %] *HI* (10/20/15 4:11 AM) Segs-Bands # 5.0 K/CMM [1.5-8.1 K/CMM] (10/20/15 4:11 AM) Lymphocytes # 2.0 K/CMM [1.0-5.5 K/CMM] (10/20/15 4:11 AM) Monocytes # [0.0-0.8 0.9 K/CMM K/CMM] *HI* (10/20/15 4:11 AM) Eosinophils # 0.1 K/CMM [0.0-0.5 K/CMM] (10/20/15 4:11 AM) Basophils # [0.0-0.2 0.1 K/CMM K/CMM] (10/20/15 4:11 AM) PT [12.0-14.7 15.0 seconds seconds] *HI* (10/20/15 4:11 AM) INR [0.85-1.17] 1.15 (10/20/15 4:11 AM) PTT [22.9-35.8 37.1 seconds seconds] *HI* (10/20/15 4:11 AM) Immunizations Vaccine Date Refusal Reason influenza [...] Last 365 Days Yes; Reg Smoking Cessation 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 Left lower extremity [...] ID standpoint can be d/c home. Per SW patient will be going home today and She spoke with ENA, wants prescription for pain meds, colostomy supplies, po abx and pain meds. Will notify attending.
--- OUTSIDE RECORDS SUMMARY | 2020-03-18 10:21 | XMS REPORT | Summary of Care ---
Author Author [facility] Organization [facility] Address Unknown Phone Unavailable Encounter MOJGAN Jacques(AMARI) [id number] Date(s): 05/19/15 - 06/17/15 [facility] [address] [place] [phone] Discharge Disposition: Home Attending Physician: Flakita Velazquez MD Referring Physician: Flakita Velazquez MD Vital Signs No data available for [...] Active bound(Confirmed) Wound(Confirmed) Active 1MDRO -- SACRUM, 05/27/2015-13-12 MDR-Acinetobacter: right foot wnd --MDRO Acinetobacter collected from urine 4Problem added by Discern Expert. 5SACRUM, 05/27/2015 6URINE, 06/25/2014-13-12 E. COLI + ESBL: left & right [...]
--- OUTSIDE RECORDS SUMMARY | 2020-03-18 10:21 | XMS REPORT | Summary of Care ---
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
--- OUTSIDE RECORDS SUMMARY | 2020-03-18 10:22 | XMS REPORT | Summary of Care ---
Author Author [facility] Organization [facility] Address Unknown Phone Unavailable Encounter MOJGAN Jacques(AMARI) [id number] Date(s): 08/23/16 - 08/23/16 [facility] [address] [place] [address]- [phone] Discharge Diagnosis: Chronic kidney disease Discharge Diagnosis: Chronic abdominal pain Discharge Disposition: Home or Self Care Attending Physician: J Luis Loredo MD Vital Signs 1 2 3 Most recent to oldest [Reference Range]: 98.1 DegF (08/23/16 9:00 PM) 98.1 DegF (08/23/16 8:20 PM) 98 DegF (08/23/16 4:03 PM) Temperature Oral [96.4-99.1 DegF] 122/77 mmHg (08/23/16 9:00 PM) 123/84 mmHg (08/23/16 4:03 PM) Blood Pressure [90-140/60-90 mmHg] 134 mmHg (08/23/16 8:20 PM) Systolic Blood Pressure [90-140 mmHg] 97 mmHg *HI* (08/23/16 8:20 PM) Diastolic Blood Pressure [60-90 mmHg] 18 BRMIN (08/23/16 9:00 PM) 18 BRMIN (08/23/16 8:20 PM) 16 BRMIN (08/23/16 4:03 PM) Respiratory Rate [14-20 BRMIN] 98 bpm (08/23/16 9:00 PM) 99 bpm (08/23/16 8:20 PM) 91 bpm (08/23/16 4:03 PM) Peripheral Pulse Rate [60-100 bpm] 70.455 kg (08/23/16 4:03 PM) Weight Problem List Condition Effective Dates Status [...] 20, 21, 22, 23 MRSA(Confirmed) Active MRSA(Confirmed)24, 08/09/15 Active 25, 26 Nephrectomy(Confirme Active d) Neurogenic Active bladder(Confirmed) Osteomyelitis L Resolved foot(Confirmed) Pain(Confirmed) Active Paraplegia(Confirmed Active ) Pneumonia(Confirmed) Active (Improving) Pseudomonas(Confirme 08/11/16 Active d)27, 28, 29, 30 Removal of lacerated Active fragment of liver(Confirmed) Spinal cord Active decompression injury(Confirmed) Splenomegaly(Confirm Active ed) Toe Resolved gangrene(Confirmed) Urethral Active stent(Confirmed) UTI - Urinary tract Active infection(Confirmed) Vomiting(Confirmed) Active 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 24MRSA isolated from nares 08/09/15 25SACRUM, 05/27/2015 26Problem added by Discern Expert. 27urine, 08/11/2016 28R. Pseudomonas, a isolated from r ankle wound 08/14/2015 29R. pseudomonas aeruginosa isolated from urine 08/08/2015 30Problem added by Discern Expert. 31VRE isolated from urine 32RIGHT HIP, 06/02/2015 33URINE, 02/24/2012 34Problem added by Discern Expert. Allergies, Adverse Reactions, Alerts Substance Reaction Severity Status Latex Active naproxen Active NKFA Active traMADol Active Medications Kayexalate oral and rectal powder 15 gm, PO, QID, # 100 gm, 0 Refill(s) Start Date: 08/23/16 Status: Ordered Saline Flush 0.9% 10 mL, Route: IVP, Drug Form: INJ, Dosing Weight 70.455, kg, PRN, PRN Line Flush , Start date: 08/23/16 16:12:00 FILM RENTAL CLERK, Duration: 30 day, Stop date: 09/22/16 16:11 :00 FILM RENTAL CLERK Notes: (Same as: BD Posiflush) Start Date: 08/23/16 Stop Date: 08/23/16 Status: Discontinued Results ELECTROLYTES Most recent to 1 oldest [Reference Range]: Sodium Lvl [135-145 134 mEq/L mEq/L] *LOW* (08/23/16 5:27 PM) Potassium Lvl 5.9 mEq/L [3.5-5.1 mEq/L] *HI* (08/23/16 5:27 PM) Chloride Lvl [95-109 104 mEq/L mEq/L] (08/23/16 5:27 PM) CO2 [24-32 mEq/L] 21 mEq/L *LOW* (08/23/16 5:27 PM) AGAP [10.0-20.0 14.9 mEq/L mEq/L] (08/23/16 5:27 PM) CHEM PANEL Most recent to 1 oldest [Reference Range]: Creatinine Lvl 6.50 mg/dL [0.50-1.40 mg/dL] *HI* (08/23/16 5:27 PM) eGFR 10 mL/min/1.73m2 1 *NA* (08/23/16 5:27 PM) BUN [7-22 mg/dL] 108 mg/dL *HI* (08/23/16 5:27 PM) B/C Ratio [6-25] 17 (08/23/16 5:27 PM) Glucose Lvl [70-99 85 mg/dL mg/dL] (08/23/16 5:27 PM) Total Protein 8.5 g/dL [6.4-8.4 g/dL] *HI* (08/23/16 5:27 PM) Albumin Lvl [3.5-5.0 2.8 g/dL g/dL] *LOW* (08/23/16 5:27 PM) Globulin [2.7-4.2 5.7 g/dL g/dL] *HI* (08/23/16 5:27 PM) A/G Ratio [0.7-1.6] 0.5 *LOW* (08/23/16 5:27 PM) Calcium Lvl 8.6 mg/dL [8.5-10.5 mg/dL] (08/23/16 5:27 PM) ALT [0-65 unit/L] 16 unit/L (08/23/16 5:27 PM) AST [0-37 unit/L] 10 unit/L (08/23/16 5:27 PM) Alk Phos [39-136 87 unit/L unit/L] (08/23/16 5:27 PM) Bili Total [0.2-1.3 0.1 mg/dL mg/dL] *LOW* (08/23/16 5:27 PM) 1Result Comment: The eGFR is calculated using [...] BMI. CARDIAC ENZYMES Most recent to 1 oldest [Reference Range]: Total CK [12-191 51 unit/L unit/L] (08/23/16 5:27 PM) CK MB [0.5-3.6 1.0 ng/mL ng/mL] (08/23/16 5:27 PM) CK MB Index 2.0 [0.0-2.5] (08/23/16 5:27 PM) Troponin-I <0.02 ng/mL [0.00-0.40 ng/mL] (08/23/16 5:27 PM) URINE AND STOOL Most recent to 1 oldest [Reference Range]: UA Turbidity [Clear] Clear (08/23/16 5:27 PM) UA Color Colorless *NA* (08/23/16 5:27 PM) UA pH [5.0-8.0] 8.0 (08/23/16 5:27 PM) UA Spec Grav 1.003 [<=1.030] (08/23/16 5:27 PM) UA Glucose [Negative 150 mg/dL mg/dL] *ABN* (08/23/16 5:27 PM) UA Blood [Negative] Small *ABN* (08/23/16 5:27 PM) UA Ketones [Negative Negative mg/dL mg/dL] *NA* (08/23/16 5:27 PM) UA Protein [Negative 30 mg/dL mg/dL] *ABN* (08/23/16 5:27 PM) UA Urobilinogen <=1.0 mg/dL [0.1-1.0 mg/dL] *NA* (08/23/16 5:27 PM) UA Bili [Negative] Negative *NA* (08/23/16 5:27 PM) UA Leuk Est Trace [Negative] *ABN* (08/23/16 5:27 PM) UA Nitrite Negative [Negative] (08/23/16 5:27 PM) UA WBC [0-5 /HPF] 11 /HPF *HI* (08/23/16 5:27 PM) UA RBC [0-2 /HPF] 3 /HPF *HI* (08/23/16 5:27 PM) UA Sq Epi None Seen *NA* (08/23/16 5:27 PM) HEMATOLOGY Most recent to 1 oldest [Reference Range]: WBC [3.7-10.4 K/CMM] 8.0 K/CMM (08/23/16 5:27 PM) RBC [4.70-6.10 3.62 M/CMM M/CMM] *LOW* (08/23/16 5:27 PM) Hgb [14.0-18.0 g/dL] 8.8 g/dL *LOW* (08/23/16 5:27 PM) Hct [42.0-54.0 %] 27.6 % *LOW* (08/23/16 5:27 PM) MCV [80.0-94.0 fL] 76.3 fL *LOW* (08/23/16 5:27 PM) MCH [27.0-31.0 pg] 24.4 pg *LOW* (08/23/16 5:27 PM) MCHC [32.0-36.0 31.9 g/dL g/dL] *LOW* (08/23/16 5:27 PM) RDW [11.5-14.5 %] 20.7 % *HI* (08/23/16 5:27 PM) Platelet [133-450 362 K/CMM K/CMM] (08/23/16 5:27 PM) MPV [7.4-10.4 fL] 8.4 fL (08/23/16 5:27 PM) Segs [45.0-75.0 %] 48.6 % (08/23/16 5:27 PM) Lymphocytes 36.1 % [20.0-40.0 %] (08/23/16 5:27 PM) Monocytes [2.0-12.0 9.5 % %] (08/23/16 5:27 PM) Eosinophils [0.0-4.0 4.7 % %] *HI* (08/23/16 5:27 PM) Basophils [0.0-1.0 1.1 % %] *HI* (08/23/16 5:27 PM) Segs-Bands # 3.9 K/CMM [1.5-8.1 K/CMM] (08/23/16 5:27 PM) Lymphocytes # 2.9 K/CMM [1.0-5.5 K/CMM] (08/23/16 5:27 PM) Monocytes # [0.0-0.8 0.8 K/CMM K/CMM] (08/23/16 5:27 PM) Eosinophils # 0.4 K/CMM [0.0-0.5 K/CMM] (08/23/16 5:27 PM) Basophils # [0.0-0.2 0.1 K/CMM K/CMM] (08/23/16 5:27 PM) Microcyte [None 1+ Seen] *ABN* (08/23/16 5:27 PM) PT [12.0-14.7 13.0 seconds seconds] (08/23/16 5:27 PM) INR [0.85-1.17] 0.96 (08/23/16 5:27 PM) PTT [22.9-35.8 34.8 seconds seconds] (08/23/16 5:27 PM) Immunizations Given and Recorded Vaccine Date Status [...] uses marijuana and drinks etoh when able.. Sexual Sexually active: No. Exercise Exercise duration: 0. Employment/School Status: Unemployed. Alcohol Current, Type Beer. Smoking Status Former smoker; Type: Cigare ttes; Tobacco use per day: 1; Number of years: 15; Total pack years: 15; Started at ag e: 15.0; Stopped at age: 30; Previous treatment: None; Ready to bernstein ge: Yes; Concerns about tobacco use in household: No; Lives with someone wh o smokes; Cigarette Smoking Last 365 Days Yes; Reg Smoking Cessation Burglary Investigator ing Yes Assessment and Plan No data available for this section
--- OUTSIDE RECORDS SUMMARY | 2020-03-18 10:22 | XMS REPORT | Summary of Care ---
Author Author [facility] Organization [facility] Address Unknown Phone Unavailable Encounter HQ Georgie(FIN) [id number] Date(s): 09/22/16 - 09/22/16 [facility] [address] [place] [address]- [facility] [phone] Discharge Diagnosis: Acute diarrhea Discharge Disposition: Home or Self Care Attending Physician: Dinora Montes DO Vital Signs 1 2 3 Most recent to oldest [Reference Range]: 182.88 cm (09/22/16 12:49 PM) Height 98.5 DegF (09/22/16 5:52 PM) 98.1 DegF (09/22/16 12:49 PM) Temperature Oral [96.4-99.1 DegF] 125/69 mmHg (09/22/16 5:52 PM) 120/74 mmHg (09/22/16 1:47 PM) 128/95 mmHg (09/22/16 12:49 PM) Blood Pressure [90-140/60-90 mmHg] 19 BRMIN (09/22/16 5:52 PM) 19 BRMIN (09/22/16 1:47 PM) 18 BRMIN (09/22/16 12:49 PM) Respiratory Rate [14-20 BRMIN] 68 bpm (09/22/16 5:52 PM) 95 bpm (09/22/16 1:47 PM) 104 bpm *HI* (09/22/16 12:49 PM) Peripheral Pulse Rate [60-100 bpm] 70.455 kg (09/22/16 12:49 PM) Weight 21.07 m2 (09/22/16 12:49 PM) Body Mass Index Problem List Condition Effective Dates Status Health Status aCleb Soto(Confir 05/27/15 Active med)1, 2, 3, 4 [...] Acinetobacter collected from urine 4Problem added by Soft Tissue Regeneration Expert. 5Urine (ESBL+), 08/13/2016 6MDRO, ESBL, CRE [...] naproxen Active NKFA Active traMADol Active Medications famotidine 20 mg, Route: IVP, ONCE, Dosing Weight 70.455, kg, Priority: STAT, Start date: 0 09/22/16 12:57:00 CITY ASSESSOR, Stop date: 09/22/16 12:57:00 CITY ASSESSOR Start Date: 09/22/16 Stop Date: 09/22/16 Status: Discontinued morphine Sulfate 4 mg, 1 mL, Route: IVP, Drug form: INJ, ONCE, Dosing Weight 70.455, kg, Priority : STAT, Start date: 09/22/16 14:35:00 CITY ASSESSOR, Stop date: 09/22/16 14:35:00 CITY ASSESSOR Notes: (Same as:MORPhine Sulfate) Start Date: 09/22/16 Stop Date: 09/22/16 Status: Completed ondansetron 4 mg, Route: IVP, ONCE, Dosing Weight 70.455, kg, Priority: STAT, Start date: 12:57:00 CITY ASSESSOR, Stop date: 09/22/16 12:57:00 CITY ASSESSOR Start Date: 09/22/16 Stop Date: 09/22/16 Status: Discontinued Saline Flush 0.9% 10 mL, Route: IVP, Drug Form: INJ, Dosing Weight 70.455, kg, PRN, PRN Line Flush , Start date: 09/22/16 12:57:00 CITY ASSESSOR, Duration: 30 day, Stop date: 10/22/16 13:56 :00 CDT Notes: (Same as: BD Posiflush) Start Date: 09/22/16 Stop Date: 09/22/16 Status: Discontinued Sodium Chloride 0.9% (Bolus) IV 1,000 mL, 2,000 ml/hr, Infuse Over: 30 minutes, Route: IV, 1,000, Drug form: INJ , ONCE, Priority: STAT, Dosing Weight 70.455 kg, Start date: 09/22/16 12:57:[address], Duration: 1 doses or times, Stop date: 09/22/16 12:57:00 CITY ASSESSOR Start Date: 09/22/16 Stop Date: 09/22/16 Status: Ordered Zofran 4 mg, 2 mL, Route: IVP, Drug form: INJ, ONCE, Dosing Weight 70.455, kg, Priority : STAT, Start date: 09/22/16 14:35:00 CITY ASSESSOR, Stop date: 09/22/16 14:35:00 CITY ASSESSOR Notes: (Same as: Zofran) MEDICATION WASTE Product Size: 4 mgProduct Was reinaldo: ___ mg Start Date: 09/22/16 Stop Date: 09/22/16 Status: Completed Results ELECTROLYTES Most recent to 1 oldest [Reference Range]: Sodium Lvl [135-145 140 mEq/L mEq/L] (09/22/16 1:38 PM) Potassium Lvl 3.9 mEq/L [3.5-5.1 mEq/L] (09/22/16 1:38 PM) Chloride Lvl [95-109 110 mEq/L mEq/L] *HI* (09/22/16 1:38 PM) CO2 [24-32 mEq/L] 22 mEq/L *LOW* (09/22/16 1:38 PM) AGAP [10.0-20.0 11.9 mEq/L mEq/L] (09/22/16 1:38 PM) CHEM PANEL Most recent to 1 oldest [Reference Range]: Creatinine Lvl 1.60 mg/dL [0.50-1.40 mg/dL] *HI* (09/22/16 1:38 PM) eGFR 57 mL/min/1.73m2 1 *NA* (09/22/16 1:38 PM) BUN [7-22 mg/dL] 25 mg/dL *HI* (09/22/16 1:38 PM) B/C Ratio [6-25] 16 (09/22/16 1:38 PM) Glucose Lvl [70-99 95 mg/dL mg/dL] (09/22/16 1:38 PM) Total Protein 9.5 g/dL [6.4-8.4 g/dL] *HI* (09/22/16 1:38 PM) Albumin Lvl [3.5-5.0 3.3 g/dL g/dL] *LOW* (09/22/16 1:38 PM) Globulin [2.7-4.2 6.2 g/dL g/dL] *HI* (09/22/16 1:38 PM) A/G Ratio [0.7-1.6] 0.5 *LOW* (09/22/16 1:38 PM) Calcium Lvl 9.3 mg/dL [8.5-10.5 mg/dL] (09/22/16 1:38 PM) ALT [0-65 unit/L] 17 unit/L (09/22/16 1:38 PM) AST [0-37 unit/L] 8 unit/L (09/22/16 1:38 PM) Alk Phos [39-136 117 unit/L unit/L] (09/22/16 1:38 PM) Bili Total [0.2-1.3 0.3 mg/dL mg/dL] (09/22/16 1:38 PM) 1Result Comment: The eGFR is calculated [...] 1 oldest [Reference Range]: WBC [3.7-10.4 K/CMM] 10.7 K/CMM *HI* (09/22/16 1:38 PM) RBC [4.70-6.10 4.06 M/CMM M/CMM] *LOW* (09/22/16 1:38 PM) Hgb [14.0-18.0 g/dL] 10.1 g/dL *LOW* (09/22/16 1:38 PM) Hct [42.0-54.0 %] 31.2 % *LOW* (09/22/16 1:38 PM) MCV [80.0-94.0 fL] 76.9 fL *LOW* (09/22/16 1:38 PM) MCH [27.0-31.0 pg] 24.8 pg *LOW* (09/22/16 1:38 PM) MCHC [32.0-36.0 32.3 g/dL g/dL] (09/22/16 1:38 PM) RDW [11.5-14.5 %] 20.1 % *HI* (09/22/16 1:38 PM) Platelet [133-450 547 K/CMM K/CMM] *HI* (09/22/16 1:38 PM) MPV [7.4-10.4 fL] 7.4 fL (09/22/16 1:38 PM) Segs [45.0-75.0 %] 68.1 % (09/22/16 1:38 PM) Lymphocytes 19.6 % [20.0-40.0 %] *LOW* (09/22/16 1:38 PM) Monocytes [2.0-12.0 8.8 % %] (09/22/16 1:38 PM) Eosinophils [0.0-4.0 2.5 % %] (09/22/16 1:38 PM) Basophils [0.0-1.0 1.0 % %] (09/22/16 1:38 PM) Segs-Bands # 7.3 K/CMM [1.5-8.1 K/CMM] (09/22/16 1:38 PM) Lymphocytes # 2.1 K/CMM [1.0-5.5 K/CMM] (09/22/16 1:38 PM) Monocytes # [0.0-0.8 0.9 K/CMM K/CMM] *HI* (09/22/16 1:38 PM) Eosinophils # 0.3 K/CMM [0.0-0.5 K/CMM] (09/22/16 1:38 PM) Basophils # [0.0-0.2 0.1 K/CMM K/CMM] (09/22/16 1:38 PM) Microcyte [None 1+ Seen] *ABN* (09/22/16 1:38 PM) Immunizations Given and Recorded Vaccine Date [...] Social History Type Response Substance Abuse Use: None. Sexual Sexually active: No. Exercise Exercise type: no exercise. Employment/School Status: Unemployed. Alcohol Never Smoking Status Current every day smoker; C oncerns about tobacco use in household: No; Exposure to Tobacco Smoke None; Cigaret te Smoking Last 365 Days No; Reg Smoking Cessation Counseling No Assessment and Plan No data available for this section
--- OUTSIDE RECORDS SUMMARY | 2020-03-18 10:22 | XMS REPORT | Summary of Care ---
Author Author [facility] Organization [facility] Address Unknown Phone Unavailable Encounter MOJGAN Jacques(AMARI) [id number] Date(s): 08/11/16 - 08/23/16 [facility] [address] [place] [address]- [phone] Discharge Disposition: Home or Self Care Attending Physician: Vamshi Peterson MD Admitting Physician: Vamshi Peterson MD Vital Signs 1 2 3 Most recent to oldest [Reference Range]: 167.64 cm (08/11/16 11:20 AM) Height 98.1 DegF (08/23/16 7:57 AM) 98.7 DegF (08/23/16 4:00 AM) 98.2 DegF (08/23/16 12:00 AM) Temperature Oral [96.4-99.1 DegF] 106/70 mmHg (08/23/16 7:57 AM) 104/66 mmHg (08/23/16 4:00 AM) 105/56 mmHg (08/23/16 1:16 AM) Blood Pressure [90-140/60-90 mmHg] 18 BRMIN (08/23/16 7:57 AM) 18 BRMIN (08/23/16 4:00 AM) 18 BRMIN (08/23/16 12:00 AM) Respiratory Rate [14-20 BRMIN] 91 bpm (08/23/16 7:57 AM) 91 bpm (08/23/16 4:00 AM) 95 bpm (08/23/16 1:16 AM) Peripheral Pulse Rate [60-100 bpm] 70.455 kg (08/12/16 1:34 AM) 70.455 kg (08/11/16 11:20 AM) Weight 25.07 m2 (08/11/16 11:20 AM) Body Mass Index Problem List Condition [...] 11, 12, 13, 14, 15 Fall(Confirmed) Resolved Dumas catheter long Active term [...] naproxen Active NKFA Active traMADol Active Medications RN- Do not give Vanc till trough drawn 08/14/16 @ 00:30 RN- Do not give Vanc till trough drawn 08/14/16 @ 00:30, Attn:RN, Drug form : MISC, Route: MISC, ONCE, 08/14/16 0:00:00 SCIENTIFIC PHOTOGRAPHER, Stop date: 08/14/16 0:00:00 SCIENTIFIC PHOTOGRAPHER Start Date: 08/14/16 Stop Date: 08/13/16 Status: Completed ALPRAZOLam 2 mg, 2 tab, Route: PO, Drug form: TAB, BID, Dosing Weight 70.455, kg, PRN as ne eded for anxiety, Start date: 08/18/16 13:07:00 SCIENTIFIC PHOTOGRAPHER, Duration: 30 day, Stop date : 09/17/16 13:06:00 SCIENTIFIC PHOTOGRAPHER Notes: With food or milk(Same as: Xanax) Start Date: 08/18/16 Stop Date: 08/23/16 Status: Discontinued ALPRAZOLam 1 mg oral tablet 2 tab, Route: PO, Drug form: TAB, TID, Dosing Weight 70.455, kg, PRN as needed f or anxiety, HOLD FOR INCREASING DROWSINESS, Start date: 08/17/16 14:26:00 SCIENTIFIC PHOTOGRAPHER, D uration: 30 day, Stop date: 09/16/16 14:25:00 SCIENTIFIC PHOTOGRAPHER Notes: With food or milk(Same as: Xanax) Start Date: 08/17/16 Stop Date: 08/18/16 Status: Discontinued amitriptyline 50 mg, 1 tab, Route: PO, Drug form: TAB, Bedtime, Dosing Weight 70.455, kg, Star t date: 08/12/16 21:00:00 SCIENTIFIC PHOTOGRAPHER, Duration: 30 day, Stop date: 09/10/16 21:00:00 CS T Notes: (Same as: Elavil) Start Date: 08/12/16 Stop Date: 08/23/16 Status: Discontinued amitriptyline 50 mg, Route: PO, Drug form: TAB, Bedtime, Dosing Weight 70.455, kg, Start date: 08/16/16 21:00:00 SCIENTIFIC PHOTOGRAPHER, Duration: 30 day, Stop date: 09/14/16 21:00:00 SCIENTIFIC PHOTOGRAPHER Start Date: 08/16/16 Stop Date: 08/16/16 Status: Deleted ANES flumazenil 0.2 mg, Route: IVP, PRN, Dosing Weight 70.455, kg, PRN Benzodiazepine Reversal, Initial dose, Start date: 08/17/16 17:01:00 SCIENTIFIC PHOTOGRAPHER, Duration: 30 day, Stop date: 17:00:00 SCIENTIFIC PHOTOGRAPHER Start Date: 08/17/16 Stop Date: 08/17/16 Status: Discontinued ANES hydrALAZINE 10 mg, Route: IVP, Q20Min, Dosing Weight 70.455, kg, PRN Elevated BP, Start date : 08/17/16 17:01:00 SCIENTIFIC PHOTOGRAPHER, Duration: 2 doses or times, Stop date: Limited # of bushra es Start Date: 08/17/16 Stop Date: 08/17/16 Status: Discontinued ANES HYDROmorphone 0.5 mg, Route: IVP, Q5Min, Dosing Weight 70.455, kg, PRN Pain Score 7-10, Start date: 08/17/16 17:01:00 SCIENTIFIC PHOTOGRAPHER, Duration: 4 doses or times, Stop date: Limited # of times Start Date: 08/17/16 Stop Date: 08/17/16 Status: Discontinued ANES ketOROLAC 30 mg, Route: IVP, ONCE, Dosing Weight 70.455, kg, Start date: 08/17/16 17:01:00 SCIENTIFIC PHOTOGRAPHER, Duration: 1 doses or times, Stop date: 08/17/16 17:01:00 SCIENTIFIC PHOTOGRAPHER Start Date: 08/17/16 Stop Date: 08/17/16 Status: Discontinued ANES labetalol 10 mg, Route: IVP, Q5Min, Dosing Weight 70.455, kg, PRN Elevated BP, Start date: 08/17/16 17:01:00 SCIENTIFIC PHOTOGRAPHER, Duration: 5 doses or times, Stop date: Limited # of times Start Date: 08/17/16 Stop Date: 08/17/16 Status: Discontinued ANES naloxone 0.4 mg, Route: IVP, Q2MIN, Dosing Weight 70.455, kg, PRN Narcotic Reversal, Star t date: 08/17/16 17:01:00 SCIENTIFIC PHOTOGRAPHER, Duration: 8 doses or times, Stop date: Limited # of times Start Date: 08/17/16 Stop Date: 08/17/16 Status: Discontinued ANES ondansetron 4 mg, Route: IVP, ONCE, Dosing Weight 70.455, kg, PRN Nausea & Vomiting, Start date: 08/17/16 17:01:00 SCIENTIFIC PHOTOGRAPHER Start Date: 08/17/16 Stop Date: 08/17/16 Status: Discontinued ANES oxyCODONE 5 mg, Route: PO, Drug form: TAB, Q4H, Dosing Weight 70.455, kg, PRN Pain Score 4 -6, Start date: 08/17/16 17:01:00 SCIENTIFIC PHOTOGRAPHER, Duration: 30 day, Stop date: 09/16/16 17: 00:00 SCIENTIFIC PHOTOGRAPHER Start Date: 08/17/16 Stop Date: 08/17/16 Status: Discontinued Aquaphor Healing 1 appl, Route: TOP, BID, Drug form: CRM, Start date: 08/21/16 17:00:00 SCIENTIFIC PHOTOGRAPHER, Dura tion: 30 day, Stop date: 09/20/16 9:00:00 SCIENTIFIC PHOTOGRAPHER Notes: (Same as: Eucerin) Start Date: 08/21/16 Stop Date: 08/23/16 Status: Discontinued calcium gluconate + sodium chloride 0.9% INJ 100 mL 2,000 mg, 20 mL, Route: IVPB, ONCE, Dosing Weight 70.455, kg, Start date: 9:00:00 SCIENTIFIC PHOTOGRAPHER, Stop date: 08/18/16 9:00:00 SCIENTIFIC PHOTOGRAPHER Notes: WASTE: F/P - Sink; E - Municipal Trash Bin Start Date: 08/18/16 Stop Date: 08/18/16 Status: Completed Cipro I.V. 400 mg/200 mL intravenous solution 400 mg, 200 mL, Route: IVPB, Drug form: INJ, ONCE, Dosing Weight 70.455, kg, Sta rt date: 08/16/16 7:33:00 SCIENTIFIC PHOTOGRAPHER, Stop date: 08/16/16 7:33:00 SCIENTIFIC PHOTOGRAPHER Notes: Do not refrigerate Start Date: 08/16/16 Stop Date: 08/16/16 Status: Discontinued ciprofloxacin (ANES) Route: IV, Drug form: INJ, ONCE, Stop date: 08/16/16 9:51:00 SCIENTIFIC PHOTOGRAPHER Start Date: 08/16/16 Stop Date: 08/16/16 Status: Completed colistimethate + sodium chloride 0.9% INJ 100 mL 150 mg, Route: IVPB, [id number], Dosing Weight 70.455, kg, Start date: 08/13/16 20: 00:00 SCIENTIFIC PHOTOGRAPHER, Duration: 30 day, Stop date: 09/12/16 8:00:00 SCIENTIFIC PHOTOGRAPHER Notes: (Same As: Coly-Mycin) Start Date: 08/13/16 Stop Date: 08/16/16 Status: Discontinued D5W 1/2NS 1,000 mL 1,000 mL, Rate: 75 ml/hr, Infuse over: 13.3 hr, Route: IV, Dosing Weight 70.455 kg, Total Volume: 1,000, Priority: STAT, Start date: 08/19/16 13:42:00 SCIENTIFIC PHOTOGRAPHER, Dura tion: 30 day, Stop date: 09/18/16 13:41:00 SCIENTIFIC PHOTOGRAPHER Start Date: 08/19/16 Stop Date: 08/23/16 Status: Discontinued Detrol LA 4 mg, 1 cap, Route: PO, Drug form: CAP, Daily, Dosing Weight 70.455, kg, Start d ate: 08/17/16 9:00:00 SCIENTIFIC PHOTOGRAPHER, Duration: 30 day, Stop date: 09/15/16 9:00:00 SCIENTIFIC PHOTOGRAPHER Notes: Do Not Crush. (Same As: Annette WATTS) Start Date: 08/17/16 Stop Date: 08/23/16 Status: Discontinued dexamethasone (ANES) Route: IV, Drug form: INJ, ONCE, Stop date: 08/17/16 17:41:00 SCIENTIFIC PHOTOGRAPHER Start Date: 08/17/16 Stop Date: 08/17/16 Status: Completed Dextrose 50% Syringe 25 gm, 50 mL, Route: IVP, Drug Form: INJ, Dosing Weight 70.455, kg, ONCE, Start date: 08/18/16 9:03:00 SCIENTIFIC PHOTOGRAPHER, Stop date: 08/18/16 9:03:00 SCIENTIFIC PHOTOGRAPHER Start Date: 08/18/16 Stop Date: 08/18/16 Status: Completed Dextrose 50% Syringe 25 gm, 50 mL, Route: IVP, Drug Form: INJ, Dosing Weight 70.455, kg, ONCE, Start date: 08/20/16 12:38:00 SCIENTIFIC PHOTOGRAPHER, Stop date: 08/20/16 12:38:00 SCIENTIFIC PHOTOGRAPHER Start Date: 08/20/16 Stop Date: 08/20/16 Status: Completed Dilaudid 0.5 mg, 0.5 mL, Route: IVP, Drug form: INJ, Q4H, Dosing Weight 70.455, kg, PRN P ain Score 7-10, Start date: 08/15/16 9:11:00 SCIENTIFIC PHOTOGRAPHER, Duration: 30 day, Stop date: 0 09/14/16 9:10:00 SCIENTIFIC PHOTOGRAPHER Start Date: 08/15/16 Stop Date: 08/23/16 Status: Discontinued docusate 100 mg, 1 cap, Route: PO, Drug form: CAP, BID, Dosing Weight 70.455, kg, PRN Con stipation, Start date: 08/12/16 0:07:00 SCIENTIFIC PHOTOGRAPHER, Duration: 30 day, Stop date: 0:06:00 SCIENTIFIC PHOTOGRAPHER Notes: (Same as: Colace) (Do Not Crush) Start Date: 08/12/16 Stop Date: 08/23/16 Status: Discontinued docusate sodium 100 mg oral capsule 100 mg = 1 cap, PO, BID, PRN Constipation, # 20 cap, 0 Refill(s) Start Date: 08/16/16 Stop Date: 08/26/16 Status: Suspended docusate sodium 100 mg oral capsule 100 mg = 1 cap, PO, BID, PRN Constipation, # 20 cap, 0 Refill(s), other Start Date: 08/23/16 Status: Ordered enalapril 10 mg, Route: PO, Drug form: TAB, Daily, Dosing Weight 70.455, kg, Start date: 0 08/23/16 9:00:00 SCIENTIFIC PHOTOGRAPHER, Duration: 30 day, Stop date: 09/21/16 9:00:00 SCIENTIFIC PHOTOGRAPHER Start Date: 08/23/16 Stop Date: 08/22/16 Status: Canceled enoxaparin 30 mg, 0.3 mL, Route: SUB-Q, Drug form: INJ, [id number], Dosing Weight 70.455, kg, Start date: 08/12/16 1:00:00 SCIENTIFIC PHOTOGRAPHER, Duration: 30 day, Stop date: 09/10/16 16:00:00 SCIENTIFIC PHOTOGRAPHER Notes: (Same as: Lovenox) Start Date: 08/12/16 Stop Date: 08/23/16 Status: Discontinued esmolol (ANES) Route: IV, Drug form: INJ, ONCE, Stop date: 08/17/16 17:32:00 SCIENTIFIC PHOTOGRAPHER Start Date: 08/17/16 Stop Date: 08/17/16 Status: Completed fentaNYL (ANES) Route: IV, Drug form: INJ, ONCE, Stop date: 08/17/16 17:22:00 SCIENTIFIC PHOTOGRAPHER Start Date: 08/17/16 Stop Date: 08/17/16 Status: Completed fentaNYL (ANES) Route: IV, Drug form: INJ, ONCE, Stop date: 08/16/16 9:14:00 SCIENTIFIC PHOTOGRAPHER Start Date: 08/16/16 Stop Date: 08/16/16 Status: Completed fentaNYL () IV solution 50 microgram /mL 25 microgram, 0.5 mL, Route: IV, Drug form: INJ, Q10Min, Dosing Weight 70.455, k g, PRN Pain Score 6-10, maximum 100 micgrograms, Start date: 08/17/16 17:01:[address], Duration: 30 day, Stop date: 09/16/16 17:00:00 SCIENTIFIC PHOTOGRAPHER Notes: (Same as: Sublimaze) Preservative free. Start Date: 08/17/16 Stop Date: 08/17/16 Status: Discontinued ferrous sulfate 325 mg, 1 tab, Route: PO, Drug form: ECTAB, Daily, Start date: 08/15/16 9:00:00 SCIENTIFIC PHOTOGRAPHER, Duration: 30 day, Stop date: 09/13/16 9:00:00 SCIENTIFIC PHOTOGRAPHER Notes: Give with food. "Do Not Crush" Start Date: 08/15/16 Stop Date: 08/23/16 Status: Discontinued ferrous sulfate 325 mg oral enteric coated tablet 325 mg = 1 tab, PO, Daily, # 30 tab, 0 Refill(s) Start Date: 08/16/16 Stop Date: 09/15/16 Status: Suspended ferrous sulfate 325 mg oral enteric coated tablet 325 mg = 1 tab, PO, Daily, # 30 tab, 0 Refill(s), other Start Date: 08/23/16 Status: Ordered folic acid 1 mg oral tablet 1 mg, 1 tab, Route: PO, Drug form: TAB, Daily, Start date: 08/15/16 9:00:00 SCIENTIFIC PHOTOGRAPHER, Duration: 30 day, Stop date: 09/13/16 9:00:00 SCIENTIFIC PHOTOGRAPHER Notes: (Same as: Folvite) Start Date: 08/15/16 Stop Date: 08/23/16 Status: Discontinued folic acid 1 mg oral tablet 1 mg = 1 tab, PO, Daily, # 30 tab, 0 Refill(s) Start Date: 08/16/16 Stop Date: 09/15/16 Status: Suspended folic acid 1 mg oral tablet 1 mg = 1 tab, PO, Daily, # 30 tab, 0 Refill(s), other Start Date: 08/23/16 Status: Ordered gentamicin + sodium chloride 0.9% INJ 91.25 mL 350 mg, 8.75 mL, Route: IVPB, ONCE, Dosing Weight 70.455, kg, Priority: STAT, St art date: 08/11/16 15:38:00 SCIENTIFIC PHOTOGRAPHER, Stop date: 08/11/16 15:38:00 SCIENTIFIC PHOTOGRAPHER Notes: TIME CRITICAL MEDICATION(Same as Garamycin) Start Date: 08/11/16 Stop Date: 08/11/16 Status: Completed Hemocyte-F 1 tab, Route: PO, Dosing Weight 70.455, kg, Daily, Start date: 08/15/16 9:00:00 SCIENTIFIC PHOTOGRAPHER, Duration: 30 day, Stop date: 09/13/16 9:00:00 SCIENTIFIC PHOTOGRAPHER Start Date: 08/15/16 Stop Date: 08/14/16 Status: Deleted hydrALAZINE 25 mg oral tablet 25 mg, 1 tab, Route: PO, Drug form: TAB, TID, Dosing Weight 70.455, kg, Start da te: 08/22/16 17:00:00 SCIENTIFIC PHOTOGRAPHER, Duration: 30 day, Stop date: 09/21/16 13:00:00 SCIENTIFIC PHOTOGRAPHER Notes: (Same as: Apresoline) May interfere w/enteral feedings Take With Food. Start Date: 08/22/16 Stop Date: 08/23/16 Status: Discontinued Imdur 30 mg, 1 tab, Route: PO, Drug form: ERTAB, QAM, Dosing Weight 70.455, kg, Start date: 08/23/16 9:00:00 SCIENTIFIC PHOTOGRAPHER, Duration: 30 day, Stop date: 09/21/16 9:00:00 SCIENTIFIC PHOTOGRAPHER Notes: (Same as:Imdur)"Do Not Crush" Take on empty stomach/ full glass of water . Do not crush Start Date: 08/23/16 Stop Date: 08/23/16 Status: Discontinued Insulin regular 10 unit, 0.1 mL, Route: SUB-Q, Drug form: INJ, ONCE, Dosing Weight 70.455, kg, S tart date: 08/18/16 8:01:00 SCIENTIFIC PHOTOGRAPHER, Stop date: 08/18/16 8:01:00 SCIENTIFIC PHOTOGRAPHER Notes: (Same as: Humulin R and NovoLIN R)WASTE: F/P - Black; E - Municipal Trash Bin (Do not shake) Start Date: 08/18/16 Stop Date: 08/18/16 Status: Completed Insulin regular 10 unit, 0.1 mL, Route: IVP, Drug form: INJ, ONCE, Dosing Weight 70.455, kg, Sta rt date: 08/20/16 12:38:00 SCIENTIFIC PHOTOGRAPHER, Stop date: 08/20/16 12:38:00 SCIENTIFIC PHOTOGRAPHER Notes: (Same as: Humulin R and NovoLIN R)WASTE: F/P - Black; E - Municipal Trash Bin (Do not shake) Start Date: 08/20/16 Stop Date: 08/20/16 Status: Completed Levi 24 gm packet 1 pkt, Route: PO, Drug Form: PWDR, Dosing Weight 70.455, kg, BID-Before Meals, S tart date: 08/12/16 16:30:00 SCIENTIFIC PHOTOGRAPHER, Duration: 14 day, Stop date: 08/26/16 7:30:00 SCIENTIFIC PHOTOGRAPHER Notes: (Same as: Levi Webster) Start Date: 08/12/16 Stop Date: 08/23/16 Status: Discontinued Kayexalate 30 gm, 120 mL, Route: PO, Drug form: SUSP, ONCE, Dosing Weight 70.455, kg, Start date: 08/18/16 13:05:00 SCIENTIFIC PHOTOGRAPHER, Stop date: 08/18/16 13:05:00 SCIENTIFIC PHOTOGRAPHER Notes: (sodium polystyrene sulfonate 15 gm/60 ml SOLITARIO) Shake well before use. (Same as: Kayexalate, SPS) Start Date: 08/18/16 Stop Date: 08/18/16 Status: Completed Lactated Ringers Injection IV 1000 mL 1,000 mL, Rate: 25 ml/hr, Infuse over: 40 hr, Route: IV, Dosing Weight 70.455 kg , Total Volume: 1,000, Start date: 08/16/16 10:44:00 SCIENTIFIC PHOTOGRAPHER, Duration: 30 day, Stop date: 09/15/16 10:43:00 SCIENTIFIC PHOTOGRAPHER Start Date: 08/16/16 Stop Date: 08/16/16 Status: Discontinued lidocaine (ANES) Route: IV, Drug form: INJ, ONCE, Stop date: 08/17/16 17:22:00 SCIENTIFIC PHOTOGRAPHER Start Date: 08/17/16 Stop Date: 08/17/16 Status: Completed lidocaine (ANES) Route: IV, Drug form: INJ, ONCE, Stop date: 08/16/16 9:39:00 SCIENTIFIC PHOTOGRAPHER Start Date: 08/16/16 Stop Date: 08/16/16 Status: Completed LR 1000 mL INJ (ANES) Route: IV, Total Volume: 1,000, Start date: 08/17/16 16:25:00 SCIENTIFIC PHOTOGRAPHER, Stop date: 17:25:00 SCIENTIFIC PHOTOGRAPHER Start Date: 08/17/16 Stop Date: 08/17/16 Status: Completed LR 1000 mL INJ (ANES) Route: IV, Total Volume: 1,000, Start date: 08/16/16 8:19:00 SCIENTIFIC PHOTOGRAPHER, Stop date: 9:19:00 SCIENTIFIC PHOTOGRAPHER Start Date: 08/16/16 Stop Date: 08/16/16 Status: Completed Lyrica 75 mg, 1 cap, Route: PO, Drug form: CAP, Daily, Dosing Weight 70.455, kg, Start date: 08/20/16 9:00:00 SCIENTIFIC PHOTOGRAPHER, Duration: 30 day, Stop date: 09/18/16 9:00:00 SCIENTIFIC PHOTOGRAPHER Notes: (Same as: Lyrica) Start Date: 08/20/16 Stop Date: 08/23/16 Status: Discontinued methadone 10 mg, 1 tab, Route: PO, Drug form: TAB, Q12H, Dosing Weight 70.455, kg, Start d ate: 08/19/16 21:00:00 SCIENTIFIC PHOTOGRAPHER, Duration: 30 day, Stop date: 09/18/16 9:00:00 SCIENTIFIC PHOTOGRAPHER Notes: (Same as: Dolophine) Start Date: 08/19/16 Stop Date: 08/19/16 Status: Canceled methadone 20 mg, 2 tab, Route: PO, Drug form: TAB, BID, Dosing Weight 70.455, kg, Start da te: 08/16/16 17:00:00 SCIENTIFIC PHOTOGRAPHER, Duration: 30 day, Stop date: 09/15/16 9:00:00 SCIENTIFIC PHOTOGRAPHER Notes: (Same as: Dolophine) Start Date: 08/16/16 Stop Date: 08/19/16 Status: Discontinued metoprolol 5 mg/5 ml INJ 5 mg, 5 mL, Route: IVP, Drug form: INJ, Q6H, Dosing Weight 70.455, kg, PRN Tachy cardia, Start date: 08/19/16 16:41:00 SCIENTIFIC PHOTOGRAPHER, Duration: 30 day, Stop date: 09/18/16 16:40:00 SCIENTIFIC PHOTOGRAPHER, if HR greater than 140BPM Notes: (Same as: Lopressor)Push over 2 minutes Start Date: 08/19/16 Stop Date: 08/23/16 Status: Discontinued metoprolol 5 mg/5 ml INJ 5 mg, 5 mL, Route: IVP, Drug form: INJ, ONCE, Dosing Weight 70.455, kg, Priority : STAT, Start date: 08/18/16 19:32:00 SCIENTIFIC PHOTOGRAPHER, Stop date: 08/18/16 19:32:00 SCIENTIFIC PHOTOGRAPHER Notes: (Same as: Lopressor)Push over 2 minutes Start Date: 08/18/16 Stop Date: 08/18/16 Status: Completed metoprolol extended release 50 mg, 1 tab, Route: PO, Drug form: ERTAB, BID, Start date: 08/22/16 17:00:00 CS T, Duration: 30 day, Stop date: 09/21/16 9:00:00 SCIENTIFIC PHOTOGRAPHER Notes: (Same as: Toprol XL) May split tab, but do not crush. Start Date: 08/22/16 Stop Date: 08/23/16 Status: Discontinued metoprolol tartrate 12.5 mg, 0.5 tab, Route: PO, Drug form: TAB, Q12H, Dosing Weight 70.455, kg, Sta rt date: 08/15/16 21:00:00 SCIENTIFIC PHOTOGRAPHER, Duration: 30 day, Stop date: 09/14/16 9:00:00 CS T Notes: (Same as: Lopressor) Start Date: 08/15/16 Stop Date: 08/19/16 Status: Discontinued metoprolol tartrate 50 mg, 1 tab, Route: PO, Drug form: TAB, BID, Dosing Weight 70.455, kg, Start da te: 08/19/16 21:00:00 SCIENTIFIC PHOTOGRAPHER, Duration: 30 day, Stop date: 09/18/16 9:00:00 SCIENTIFIC PHOTOGRAPHER Notes: (Same as: Lopressor) Start Date: 08/19/16 Stop Date: 08/22/16 Status: Discontinued metoprolol tartrate 25 mg oral tablet 12.5 mg = 0.5 tab, PO, Q12H, # 30 tab, 0 Refill(s) Start Date: 08/16/16 Stop Date: 09/15/16 Status: Suspended metoprolol tartrate 25 mg oral tablet 12.5 mg = 0.5 tab, PO, Q12H, # 30 tab, 0 Refill(s), other Start Date: 08/23/16 Status: Ordered midazolam (ANES) Route: IV, Drug form: SOLN, ONCE, Stop date: 08/17/16 17:22:00 SCIENTIFIC PHOTOGRAPHER Start Date: 08/17/16 Stop Date: 08/17/16 Status: Completed midazolam (ANES) Route: IV, Drug form: SOLN, ONCE, Stop date: 08/16/16 9:14:00 SCIENTIFIC PHOTOGRAPHER Start Date: 08/16/16 Stop Date: 08/16/16 Status: Completed morphine Sulfate 2 mg, 1 mL, Route: IVP, Drug form: INJ, Q4H, Dosing Weight 70.455, kg, PRN Pain Score 7-10, Start date: 08/12/16 0:07:00 SCIENTIFIC PHOTOGRAPHER, Duration: 30 day, Stop date: 09/11 0:06:00 SCIENTIFIC PHOTOGRAPHER Notes: (Same as:MORPhine Sulfate) Start Date: 08/12/16 Stop Date: 08/12/16 Status: Discontinued morphine Sulfate 2 mg, 1 mL, Route: IVP, Drug form: INJ, Q3H, Dosing Weight 70.455, kg, PRN Pain Score 7-10, Start date: 08/12/16 16:43:00 SCIENTIFIC PHOTOGRAPHER, Duration: 30 day, Stop date: 03/20 16:42:00 SCIENTIFIC PHOTOGRAPHER Notes: (Same as:MORPhine Sulfate) Start Date: 08/12/16 Stop Date: 08/15/16 Status: Discontinued Narcan 0.4 mg, 0.4 mL, Route: IVP, Drug form: INJ, PRN, Dosing Weight 70.455, kg, PRN N arcotic Reversal, Start date: 08/19/16 10:59:00 SCIENTIFIC PHOTOGRAPHER, Duration: 30 day, Stop date : 09/18/16 10:58:00 SCIENTIFIC PHOTOGRAPHER Notes: (Same as: Narcan) MEDICATION WASTE Product Size: 2 mgProduct Was reinaldo: ___ mg Start Date: 08/19/16 Stop Date: 08/23/16 Status: Discontinued Dover 10/325 oral tablet 1 tab, Route: PO, Drug Form: TAB, Dosing Weight 70.455, kg, Q6H, PRN Pain Score 4-6, Start date: 08/12/16 16:43:00 SCIENTIFIC PHOTOGRAPHER, Duration: 30 day, Stop date: 09/11/16 16 :42:00 SCIENTIFIC PHOTOGRAPHER Notes: Do not exceed 4gm/day of acetaminophen. (Same as: [place] 325/10) Start Date: 08/12/16 Stop Date: 08/19/16 Status: Discontinued NS (Bolus) IV 1,000 mL, 1,000 ml/hr, Infuse Over: 1 hr, Route: IV, ONCE, Priority: STAT, Dosin g Weight 70.455 kg, Start date: 08/11/16 11:40:00 SCIENTIFIC PHOTOGRAPHER, Duration: 1 doses or time s, Stop date: 08/11/16 11:40:00 SCIENTIFIC PHOTOGRAPHER Start Date: 08/11/16 Stop Date: 08/11/16 Status: Completed ondansetron 4 mg, 2 mL, Route: IVP, Drug form: INJ, Q6H, Dosing Weight 70.455, kg, PRN Nause a & Vomiting, Start date: 08/12/16 0:07:00 SCIENTIFIC PHOTOGRAPHER, Duration: 30 day, Stop date: 09/11/16 0:06:00 SCIENTIFIC PHOTOGRAPHER Notes: (Same as: Klaus) MEDICATION WASTE Product Size: 4 mgProduct Was reinaldo: ___ mg Start Date: 08/12/16 Stop Date: 08/12/16 Status: Discontinued ondansetron 4 mg, 2 mL, Route: IVP, Drug form: INJ, Q4H, Dosing Weight 70.455, kg, PRN Nause a & Vomiting, Start date: 08/12/16 13:42:00 SCIENTIFIC PHOTOGRAPHER, Stop date: 09/11/16 13:41:00 SCIENTIFIC PHOTOGRAPHER Notes: (Same as: Klaus) MEDICATION WASTE Product Size: 4 mgProduct Was reinaldo: ___ mg Start Date: 08/12/16 Stop Date: 08/23/16 Status: Discontinued ondansetron (ANES) Route: IV, Drug form: INJ, ONCE, Stop date: 08/17/16 17:32:00 SCIENTIFIC PHOTOGRAPHER Start Date: 08/17/16 Stop Date: 08/17/16 Status: Completed ondansetron (ANES) Route: IV, Drug form: INJ, ONCE, Stop date: 08/16/16 9:44:00 SCIENTIFIC PHOTOGRAPHER Start Date: 08/16/16 Stop Date: 08/16/16 Status: Completed pantoprazole 40 mg, 1 tab, Route: PO, Drug form: ECTAB, Before Dinner, Dosing Weight 70.455, kg, Start date: 08/12/16 16:30:00 SCIENTIFIC PHOTOGRAPHER, Duration: 30 day, Stop date: 09/10/16 16: 30:00 SCIENTIFIC PHOTOGRAPHER Notes: Tablet should not be chewed or crushed.(Same as: Protonix) Start Date: 08/12/16 Stop Date: 08/23/16 Status: Discontinued Percocet 10/325 oral tablet 1 tab, Route: PO, Drug Form: TAB, Dosing Weight 70.455, kg, Q4H, PRN Pain Score 4-6, Start date: 08/19/16 17:37:00 SCIENTIFIC PHOTOGRAPHER, Duration: 30 day, Stop date: 09/18/16 17 :36:00 SCIENTIFIC PHOTOGRAPHER Start Date: 08/19/16 Stop Date: 08/19/16 Status: Deleted pneumococcal 13-valent vaccine 0.5 mL, Route: IM, Drug Form: INJ, Daily, Start date: 08/13/16 9:00:00 SCIENTIFIC PHOTOGRAPHER, Stop date: 08/13/16 21:00:00 SCIENTIFIC PHOTOGRAPHER Notes: Lightly roll vial (DO NOT SHAKE) before administration. (Same as: Prevna r 13) Start Date: 08/13/16 Stop Date: 08/13/16 Status: Completed potassium chloride 20 mEq, 1 tab, Route: PO, Drug form: ERTAB, ONCE, Dosing Weight 70.455, kg, Star t date: 08/14/16 14:36:00 SCIENTIFIC PHOTOGRAPHER, Stop date: 08/14/16 14:36:00 SCIENTIFIC PHOTOGRAPHER Notes: (Same as: K-Dur 20)"Do Not Crush" With food and full glass of water Start Date: 08/14/16 Stop Date: 08/14/16 Status: Completed pregabalin 150 mg, 2 cap, Route: PO, Drug form: CAP, BID, Dosing Weight 70.455, kg, Start d ate: 08/12/16 21:00:00 SCIENTIFIC PHOTOGRAPHER, Duration: 30 day, Stop date: 09/11/16 9:00:00 SCIENTIFIC PHOTOGRAPHER Notes: (Same as: Lyrica) Start Date: 08/12/16 Stop Date: 08/19/16 Status: Discontinued propofol (ANES) Route: IV, Drug form: INJ, ONCE, Stop date: 08/17/16 17:22:00 SCIENTIFIC PHOTOGRAPHER Start Date: 08/17/16 Stop Date: 08/17/16 Status: Completed propofol (ANES) Route: IV, Drug form: INJ, ONCE, Stop date: 08/16/16 9:39:00 SCIENTIFIC PHOTOGRAPHER Start Date: 08/16/16 Stop Date: 08/16/16 Status: Completed Rocephin + sodium chloride 0.9% INJ 100 mL 1 gm, Route: IVPB, [id number], Dosing Weight 70.455, kg, Start date: 08/12/16 1:00: 00 SCIENTIFIC PHOTOGRAPHER, Duration: 30 day, Stop date: 09/10/16 1:00:00 SCIENTIFIC PHOTOGRAPHER Notes: (Same As: Rocephin).Use with 100 mL NS and infuse over 30 min MEDICA TION WASTE Product Size: 1000 mgProduct Wasted: ___ mg Start Date: 08/12/16 Stop Date: 08/13/16 Status: Discontinued Roxicodone 10 mg, 2 tab, Route: PO, Drug form: TAB, Q4H, PRN Pain Score 4-6, Start date: 17:59:00 SCIENTIFIC PHOTOGRAPHER, Duration: 30 day, Stop date: 09/18/16 17:58:00 SCIENTIFIC PHOTOGRAPHER Notes: (Same as: Roxicodone) Start Date: 08/19/16 Stop Date: 08/23/16 Status: Discontinued Saline Flush 0.9% 10 ml, Route: IVP, Drug Form: INJ, Dosing Weight 70.455, kg, PRN, PRN Line Flush , Start date: 08/12/16 0:07:00 SCIENTIFIC PHOTOGRAPHER, Duration: 30 day, Stop date: 09/11/16 0:06:0 0 SCIENTIFIC PHOTOGRAPHER Notes: (Same as: BD Posiflush) Start Date: 08/12/16 Stop Date: 08/23/16 Status: Discontinued Santyl 1 appl, Route: TOP, Daily, Drug form: OINT, Start date: 08/13/16 9:00:00 SCIENTIFIC PHOTOGRAPHER, Du ration: 30 day, Stop date: 09/11/16 9:00:00 SCIENTIFIC PHOTOGRAPHER Notes: (Same As: Santyl) Start Date: 08/13/16 Stop Date: 08/12/16 Status: Canceled Santyl 1 appl, Route: TOP, Daily, Drug form: OINT, Start date: 08/12/16 21:00:00 SCIENTIFIC PHOTOGRAPHER, D uration: 30 day, Stop date: 09/11/16 9:00:00 SCIENTIFIC PHOTOGRAPHER Notes: (Same As: Santyl) Start Date: 08/12/16 Stop Date: 08/23/16 Status: Discontinued Santyl 1 appl, Route: TOP, Daily, Drug form: OINT, Start date: 08/13/16 9:00:00 SCIENTIFIC PHOTOGRAPHER, Du ration: 30 day, Stop date: 09/11/16 9:00:00 SCIENTIFIC PHOTOGRAPHER Notes: (Same As: Santyl) Start Date: 08/13/16 Stop Date: 08/12/16 Status: Canceled Santyl 1 appl, Route: TOP, Daily, Start date: 08/17/16 9:00:00 SCIENTIFIC PHOTOGRAPHER, Duration: 30 day, S top date: 09/15/16 9:00:00 SCIENTIFIC PHOTOGRAPHER Start Date: 08/17/16 Stop Date: 08/16/16 Status: Deleted sodium bicarbonate 8.4% 50 mEq, 50 ml, Route: IVP, Drug Form: INJ, Dosing Weight 70.455, kg, ONCE, Start date: 08/18/16 9:06:00 SCIENTIFIC PHOTOGRAPHER, Stop date: 08/18/16 9:06:00 SCIENTIFIC PHOTOGRAPHER Notes: (sodium bicarb 8.4% (1 mEq/ml) 50 ml syringe) Start Date: 08/18/16 Stop Date: 08/18/16 Status: Completed sodium chloride 0.9% 1000 ml INJ 1,000 mL 1,000 mL, Rate: 100 ml/hr, Infuse over: 10 hr, Route: IV, Dosing Weight 70.455 k g, Total Volume: 1,000, Start date: 08/16/16 21:11:00 SCIENTIFIC PHOTOGRAPHER, Duration: 30 day, Sto p date: 09/15/16 21:10:00 SCIENTIFIC PHOTOGRAPHER Start Date: 08/16/16 Stop Date: 08/17/16 Status: Discontinued sodium chloride 0.9% 1000 ml INJ 1,000 mL 1,000 mL, Rate: 50 ml/hr, Infuse over: 20 hr, Route: IV, Dosing Weight 70.455 kg , Total Volume: 1,000, Start date: 08/12/16 0:07:00 SCIENTIFIC PHOTOGRAPHER, Stop date: 09/11/16 0:0 6:00 SCIENTIFIC PHOTOGRAPHER Start Date: 08/12/16 Stop Date: 08/16/16 Status: Discontinued Sodium Chloride 0.9% IV 1000 mL 1,000 mL, Rate: 25 ml/hr, Infuse over: 40 hr, Route: IV, Dosing Weight 70.455 kg , Total Volume: 1,000, Start date: 08/16/16 10:44:00 SCIENTIFIC PHOTOGRAPHER, Duration: 30 day, Stop date: 09/15/16 10:43:00 SCIENTIFIC PHOTOGRAPHER Start Date: 08/16/16 Stop Date: 08/16/16 Status: Discontinued sodium polystyrene sulfonate 60 gm, 240 mL, Route: PO, Drug form: SUSP, ONCE, Dosing Weight 70.455, kg, Start date: 08/18/16 9:37:00 SCIENTIFIC PHOTOGRAPHER, Stop date: 08/18/16 9:37:00 SCIENTIFIC PHOTOGRAPHER Notes: (sodium polystyrene sulfonate 15 gm/60 ml SOLITARIO) Shake well before use. (Same as: Jiexaalote, SPS) Start Date: 08/18/16 Stop Date: 08/18/16 Status: Completed sodium polystyrene sulfonate 30 gm, 120 mL, Route: PO, Drug form: SUSP, ONCE, Dosing Weight 70.455, kg, Start date: 08/20/16 12:38:00 SCIENTIFIC PHOTOGRAPHER, Duration: 1 doses or times, Stop date: 08/20/16 12 :38:00 SCIENTIFIC PHOTOGRAPHER Notes: (sodium polystyrene sulfonate 15 gm/60 ml SOLITARIO) Shake well before use. (Same as: Kayexalate, SPS) Start Date: 08/20/16 Stop Date: 08/20/16 Status: Completed tizanidine 4 mg, 1 tab, Route: PO, Drug form: TAB, TID, Dosing Weight 70.455, kg, Start river e: 08/12/16 15:00:00 SCIENTIFIC PHOTOGRAPHER, Duration: 30 day, Stop date: 09/11/16 9:00:00 SCIENTIFIC PHOTOGRAPHER Notes: (Same As: Zanaflex) Start Date: 08/12/16 Stop Date: 08/23/16 Status: Discontinued tolterodine 4 mg oral capsule, extended release 4 mg = 1 cap, PO, Daily, # 30 cap, 0 Refill(s) Start Date: 08/23/16 Stop Date: 09/22/16 Status: Ordered Tylenol 325 mg, 1 tab, Route: PO, Drug form: TAB, Q4H, PRN Pain Score 4-6, Start date: 0 08/19/16 17:59:00 SCIENTIFIC PHOTOGRAPHER, Duration: 30 day, Stop date: 09/18/16 17:58:00 SCIENTIFIC PHOTOGRAPHER Notes: Do not exceed 4 gm/day. (Same as: Tylenol) Start Date: 08/19/16 Stop Date: 08/23/16 Status: Discontinued Valium 5 mg, 1 tab, Route: PO, Drug form: TAB, ONCE, Dosing Weight 70.455, kg, Priority : STAT, Start date: 08/11/16 20:00:00 SCIENTIFIC PHOTOGRAPHER, Stop date: 08/11/16 20:00:00 SCIENTIFIC PHOTOGRAPHER Notes: (Same as: Valium) Start Date: 08/11/16 Stop Date: 08/11/16 Status: Completed vancomycin + sodium chloride 0.9% INJ 250 mL 1,000 mg, Route: IVPB, [id number], Dosing Weight 70.455, kg, Start date: 08/12/16 1 :00:00 SCIENTIFIC PHOTOGRAPHER, Duration: 30 day, Stop date: 09/10/16 1:00:00 SCIENTIFIC PHOTOGRAPHER Notes: TIME CRITICAL MEDICATION(Same As: Vancocin)Infusion rate< 1000 mg: infuse over 1 [id number] - 1500 mg: infuse over 1.5 [id number] - 2000 mg: infuse over 2 hours> 2001 mg: infuse over 2.5 hours MEDICATION WASTE Product Size: 1000 mgProduct Wasted: ___ mg Start Date: 08/12/16 Stop Date: 08/13/16 Status: Discontinued Xanax 1 mg oral tablet 1 mg = 1 tab, PO, BID, X 7 day, # 14 tab, 0 Refill(s) Start Date: 08/23/16 Stop Date: 08/30/16 Status: Ordered Xanax 1 mg oral tablet 1 mg, 1 tab, Route: PO, Drug form: TAB, BID, Dosing Weight 70.455, kg, Start river e: 08/12/16 21:00:00 SCIENTIFIC PHOTOGRAPHER, Duration: 30 day, Stop date: 09/11/16 9:00:00 SCIENTIFIC PHOTOGRAPHER Notes: With food or milk(Same as: Xanax) Start Date: 08/12/16 Stop Date: 08/17/16 Status: Discontinued Xanax 1 mg oral tablet 1 mg, 1 tab, Route: PO, Drug form: TAB, BID, Dosing Weight 70.455, kg, Start river e: 08/16/16 17:00:00 SCIENTIFIC PHOTOGRAPHER, Duration: 30 day, Stop date: 09/15/16 9:00:00 SCIENTIFIC PHOTOGRAPHER Start Date: 08/16/16 Stop Date: 08/16/16 Status: Deleted Zofran 4 mg, Route: IVP, Drug form: INJ, ONCE, Dosing Weight 70.455, kg, Priority: STAT , Start date: 08/11/16 11:41:00 SCIENTIFIC PHOTOGRAPHER, Stop date: 08/11/16 11:41:00 SCIENTIFIC PHOTOGRAPHER Start Date: 08/11/16 Stop Date: 08/11/16 Status: Completed Results ELECTROLYTES 1 2 3 Most recent to oldest [Reference Range]: 137 mEq/L (08/23/16 6:07 AM) 138 mEq/L (08/22/16 5:14 AM) 140 mEq/L (08/21/16 6:05 AM) Sodium Lvl [135-145 mEq/L] 5.7 mEq/L *HI* (08/23/16 6:07 AM) 5.8 mEq/L *HI* (08/22/16 5:14 AM) 5.2 mEq/L *HI* (08/21/16 6:05 AM) Potassium Lvl [3.5-5.1 mEq/L] 107 mEq/L (08/23/16 6:07 AM) 105 mEq/L (08/22/16 5:14 AM) 104 mEq/L (08/21/16 6:05 AM) Chloride Lvl [95-109 mEq/L] 17 mEq/L *LOW* (08/23/16 6:07 AM) 21 mEq/L *LOW* (08/22/16 5:14 AM) 21 mEq/L *LOW* (08/21/16 6:05 AM) CO2 [24-32 mEq/L] 18.7 mEq/L (08/23/16 6:07 AM) 17.8 mEq/L (08/22/16 5:14 AM) 20.2 mEq/L *HI* (08/21/16 6:05 AM) AGAP [10.0-20.0 mEq/L] CHEM PANEL 1 2 3 Most recent to oldest [Reference Range]: 6.80 mg/dL *HI* (08/23/16 6:07 AM) 6.90 mg/dL *HI* (08/22/16 5:14 AM) 7.10 mg/dL *HI* (08/21/16 6:05 AM) Creatinine Lvl [0.50-1.40 mg/dL] 10 mL/min/1.73m2 1 *NA* (08/23/16 6:07 AM) 10 mL/min/1.73m2 2 *NA* (08/22/16 5:14 AM) 9 mL/min/1.73m2 3 *NA* (08/21/16 6:05 AM) eGFR 103 mg/dL *HI* (08/23/16 6:07 AM) 93 mg/dL *HI* (08/22/16 5:14 AM) 102 mg/dL *HI* (08/21/16 6:05 AM) BUN [7-22 mg/dL] 15 (08/23/16 6:07 AM) 14 (08/21/16 6:05 AM) 14 (08/20/16 5:24 AM) B/C Ratio [6-25] 95 mg/dL (08/23/16 6:07 AM) 106 mg/dL *HI* (08/22/16 5:14 AM) 116 mg/dL *HI* (08/21/16 6:05 AM) Glucose Lvl [70-99 mg/dL] 7.6 g/dL (08/23/16 6:07 AM) 7.3 g/dL (08/21/16 6:05 AM) 8.6 g/dL *HI* (08/20/16 5:24 AM) Total Protein [6.4-8.4 g/dL] 2.5 g/dL *LOW* (08/23/16 6:07 AM) 2.7 g/dL *LOW* (08/21/16 6:05 AM) 2.9 g/dL *LOW* (08/20/16 5:24 AM) Albumin Lvl [3.5-5.0 g/dL] 5.1 g/dL *HI* (08/23/16 6:07 AM) 4.6 g/dL *HI* (08/21/16 6:05 AM) 5.7 g/dL *HI* (08/20/16 5:24 AM) Globulin [2.7-4.2 g/dL] 0.5 *LOW* (08/23/16 6:07 AM) 0.6 *LOW* (08/21/16 6:05 AM) 0.5 *LOW* (08/20/16 5:24 AM) A/G Ratio [0.7-1.6] 8.5 mg/dL (08/23/16 6:07 AM) 8.1 mg/dL *LOW* (08/22/16 5:14 AM) 8.6 mg/dL (08/21/16 6:05 AM) Calcium Lvl [8.5-10.5 mg/dL] 2.4 mg/dL *LOW* (08/18/16 5:00 AM) 2.4 mg/dL *LOW* (08/12/16 1:03 AM) Phosphorus [2.5-4.5 mg/dL] 1.7 mg/dL *LOW* (08/18/16 5:00 AM) 2.2 mg/dL (08/13/16 4:32 AM) 2.0 mg/dL (08/12/16 1:03 AM) Magnesium Lvl [1.8-2.4 mg/dL] 16 unit/L (08/23/16 6:07 AM) 21 unit/L (08/21/16 6:05 AM) 25 unit/L (08/20/16 5:24 AM) ALT [0-65 unit/L] 7 unit/L (08/23/16 6:07 AM) 16 unit/L (08/21/16 6:05 AM) 18 unit/L (08/20/16 5:24 AM) AST [0-37 unit/L] 80 unit/L (08/23/16 6:07 AM) 98 unit/L (08/21/16 6:05 AM) 96 unit/L (08/20/16 5:24 AM) Alk Phos [39-136 unit/L] 0.2 mg/dL (08/23/16 6:07 AM) 0.1 mg/dL *LOW* (08/21/16 6:05 AM) 0.2 mg/dL (08/20/16 5:24 AM) Bili Total [0.2-1.3 mg/dL] 0.7 mMol/L (08/12/16 5:04 AM) 2.5 mMol/L *HI* (08/12/16 1:03 AM) 1.7 mMol/L (08/11/16 1:50 PM) Lactic Acid Lvl [0.5-2.2 mMol/L] 1Result [...] 3 Most recent to oldest [Reference Range]: 26 ug/dl *LOW* (08/14/16 5:40 AM) Iron [45-160 ug/dl] 102 ng/mL (08/14/16 5:40 AM) Ferritin Lvl [22-275 ng/mL] 16 % (08/14/16 5:40 AM) % Satur Fe [12-57 %] 138 ug/dl (08/14/16 5:40 AM) UIBC [110-370 ug/dl] 164 ug/dl *LOW* (08/14/16 5:40 AM) TIBC [228-428 ug/dl] DRUG SCREEN 1 2 3 Most recent to oldest [Reference Range]: Negative *NA* (08/11/16 7:46 PM) U Amph Scr [Negative] Negative *NA* (08/11/16 7:46 PM) U Chelsie Scr [Negative] Negative *NA* (08/11/16 7:46 PM) U Benzodia Scr [Negative] Negative *NA* (08/11/16 7:46 PM) U Cocaine Scr [Negative] Positive *ABN* (08/11/16 7:46 PM) U Opiate Scr [Negative] Negative *NA* (08/11/16 7:46 PM) U Phencyc Scr [Negative] Positive *ABN* (08/11/16 7:46 PM) U Cannab Scr [Negative] See Note (08/11/16 7:46 PM) UDS Note TOXICOLOGY 1 2 3 Most recent to oldest [Reference Range]: 0 *NA* (08/14/16 12:25 AM) Vanco Tr TND 11.4 ug/ml *NA* (08/14/16 12:25 AM) Vanco Tr URINE CHEM 1 2 3 Most recent to oldest [Reference Range]: 0-2 *ABN* (08/18/16 3:03 AM) U Eos [None Seen] URINE AND STOOL 1 2 3 Most recent to oldest [Reference Range]: Slight *ABN* (08/18/16 3:03 AM) Marked *ABN* (08/11/16 1:50 PM) UA Turbidity [Clear] Ltyellow *NA* (08/18/16 3:03 AM) UA Color Yellow *NA* (08/11/16 1:50 PM) UA Color [Yellow] >=9.0 *ABN* (08/18/16 3:03 AM) 6.0 (08/11/16 1:50 PM) UA pH [5.0-8.0] 1.012 (08/18/16 3:03 AM) 1.014 (08/11/16 1:50 PM) UA Spec Grav [<=1.030] 50 mg/dL *ABN* (08/18/16 3:03 AM) Negative mg/dL *NA* (08/11/16 1:50 PM) UA Glucose [Negative mg/dL] Moderate *ABN* (08/18/16 3:03 AM) Moderate *ABN* (08/11/16 1:50 PM) UA Blood [Negative] Negative mg/dL *NA* (08/18/16 3:03 AM) Trace mg/dL *ABN* (08/11/16 1:50 PM) UA Ketones [Negative mg/dL] 100 mg/dL *ABN* (08/18/16 3:03 AM) 100 mg/dL *ABN* (08/11/16 1:50 PM) UA Protein [Negative mg/dL] <=1.0 mg/dL *NA* (08/18/16 3:03 AM) <=1.0 mg/dL *NA* (08/11/16 1:50 PM) UA Urobilinogen [0.1-1.0 mg/dL] Negative *NA* (08/18/16 3:03 AM) Negative *NA* (08/11/16 1:50 PM) UA Bili [Negative] Moderate *ABN* (08/18/16 3:03 AM) Large *ABN* (08/11/16 1:50 PM) UA Leuk Est [Negative] Negative (08/18/16 3:03 AM) Positive *ABN* (08/11/16 1:50 PM) UA Nitrite [Negative] 98 /HPF *HI* (08/18/16 3:03 AM) >182 /HPF *HI* (08/11/16 1:50 PM) UA WBC [0-5 /HPF] 117 /HPF *HI* (08/18/16 3:03 AM) 88 /HPF *HI* (08/11/16 1:50 PM) UA RBC [0-2 /HPF] Occasional /HPF *NA* (08/18/16 3:03 AM) Many /HPF *ABN* (08/11/16 1:50 PM) UA Bacteria [None Seen /HPF] None Seen *NA* (08/18/16 3:03 AM) None Seen *NA* (08/11/16 1:50 PM) UA Sq Epi Few /LPF *NA* (08/11/16 1:50 PM) UA Mucus [None Seen /LPF] Few /HPF *ABN* (08/18/16 3:03 AM) UA [place] Yeast [None Seen /HPF] 20 /LPF *HI* (08/18/16 3:03 AM) UA Trans Epi [<=0 /LPF] Negative (08/13/16 4:35 PM) Occult Bld Stl [Negative] IMMUNOLOGY 1 2 3 Most recent to oldest [Reference Range]: 95.1 mg/L *NA* (08/13/16 4:32 AM) CRP, High Sensitivity HEMATOLOGY 1 2 3 Most recent to oldest [Reference Range]: 7.9 K/CMM (08/23/16 6:07 AM) 7.7 K/CMM (08/22/16 5:14 AM) 9.9 K/CMM (08/21/16 6:05 AM) WBC [3.7-10.4 K/CMM] 3.53 M/CMM *LOW* (08/23/16 6:07 AM) 3.70 M/CMM *LOW* (08/22/16 5:14 AM) 4.03 M/CMM *LOW* (08/21/16 6:05 AM) RBC [4.70-6.10 M/CMM] 8.6 g/dL *LOW* (08/23/16 6:07 AM) 8.9 g/dL *LOW* (08/22/16 5:14 AM) 9.8 g/dL *LOW* (08/21/16 6:05 AM) Hgb [14.0-18.0 g/dL] 26.7 % *LOW* (08/23/16 6:07 AM) 28.2 % *LOW* (08/22/16 5:14 AM) 31.2 % *LOW* (08/21/16 6:05 AM) Hct [42.0-54.0 %] 75.7 fL *LOW* (08/23/16 6:07 AM) 76.1 fL *LOW* (08/22/16 5:14 AM) 77.4 fL *LOW* (08/21/16 6:05 AM) MCV [80.0-94.0 fL] 24.2 pg *LOW* (08/23/16 6:07 AM) 24.1 pg *LOW* (08/22/16 5:14 AM) 24.4 pg *LOW* (08/21/16 6:05 AM) MCH [27.0-31.0 pg] 32.0 g/dL (08/23/16 6:07 AM) 31.7 g/dL *LOW* (08/22/16 5:14 AM) 31.5 g/dL *LOW* (08/21/16 6:05 AM) MCHC [32.0-36.0 g/dL] 20.8 % *HI* (08/23/16 6:07 AM) 20.6 % *HI* (08/22/16 5:14 AM) 21.0 % *HI* (08/21/16 6:05 AM) RDW [11.5-14.5 %] 350 K/CMM (08/23/16 6:07 AM) 371 K/CMM (08/22/16 5:14 AM) 409 K/CMM (08/21/16 6:05 AM) Platelet [133-450 K/CMM] 8.1 fL (08/23/16 6:07 AM) 8.5 fL (08/22/16 5:14 AM) 8.0 fL (08/21/16 6:05 AM) MPV [7.4-10.4 fL] 42.6 % *LOW* (08/23/16 6:07 AM) 41.0 % *LOW* (08/22/16 5:14 AM) 43.1 % *LOW* (08/21/16 6:05 AM) Segs [45.0-75.0 %] 41.5 % *HI* (08/23/16 6:07 AM) 40.8 % *HI* (08/22/16 5:14 AM) 39.3 % (08/21/16 6:05 AM) Lymphocytes [20.0-40.0 %] 9.9 % (08/23/16 6:07 AM) 12.1 % *HI* (08/22/16 5:14 AM) 11.6 % (08/21/16 6:05 AM) Monocytes [2.0-12.0 %] 5.1 % *HI* (08/23/16 6:07 AM) 5.2 % *HI* (08/22/16 5:14 AM) 4.9 % *HI* (08/21/16 6:05 AM) Eosinophils [0.0-4.0 %] 0.9 % (08/23/16 6:07 AM) 0.9 % (08/22/16 5:14 AM) 1.1 % *HI* (08/21/16 6:05 AM) Basophils [0.0-1.0 %] 3.4 K/CMM (08/23/16 6:07 AM) 3.2 K/CMM (08/22/16 5:14 AM) 4.3 K/CMM (08/21/16 6:05 AM) Segs-Bands # [1.5-8.1 K/CMM] 3.3 K/CMM (08/23/16 6:07 AM) 3.1 K/CMM (08/22/16 5:14 AM) 3.9 K/CMM (08/21/16 6:05 AM) Lymphocytes # [1.0-5.5 K/CMM] 0.8 K/CMM (08/23/16 6:07 AM) 0.9 K/CMM *HI* (08/22/16 5:14 AM) 1.1 K/CMM *HI* (08/21/16 6:05 AM) Monocytes # [0.0-0.8 K/CMM] 0.4 K/CMM (08/23/16 6:07 AM) 0.4 K/CMM (08/22/16 5:14 AM) 0.5 K/CMM (08/21/16 6:05 AM) Eosinophils # [0.0-0.5 K/CMM] 0.1 K/CMM (08/23/16 6:07 AM) 0.1 K/CMM (08/22/16 5:14 AM) 0.1 K/CMM (08/21/16 6:05 AM) Basophils # [0.0-0.2 K/CMM] 1+ *ABN* (08/23/16 6:07 AM) 1+ *ABN* (08/22/16 5:14 AM) 1+ *ABN* (08/21/16 6:05 AM) Microcyte [None Seen] >100 mm/hr *ABN* (08/13/16 4:32 AM) Sed Rate [0-15 mm/hr] 13.8 seconds (08/16/16 6:48 AM) PT [12.0-14.7 seconds] 1.04 (08/16/16 6:48 AM) INR [0.85-1.17] Immunizations Given and Recorded Vaccine Date Status [...] Last 365 Days Yes; 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 procedure w [facility] Code status: None Specified=FULL CODECurrent diet: Isolation: Contact [Ordered] Allergies: traMADol, Latex, naproxen, NKFA SUBJECTIVE No acute events pending transfer OBJECTIVE General: NAD, AAO Abdomen: Soft, nontender, nondistended : urine clear ASSESSMENT & EXAM renal failure, nonobstructive ?left ureteral obstruction, recent exchange of left ureteral stent neurogenic bladder, dumas in place PLAN & TREATMENT outpt management of urologic condition, he has my card and will follow up to address his many urologic issues DIAGNOSES & PROBLEMS Ready for Discharge (Yes/No)? Dumas still necessary (Yes/No): Line still necessary (Yes/No): 24hr Labs 08/23 0607 Sodium Xrk362 Potassium Lvl5.7 H Chloride Zhv542 CO217 L AGAP18.7 Glucose Lvl95 Creatinine Lvl6.80 H WBB331 H B/C Ratio15 Total Protein7.6 Albumin Lvl2.5 L Globulin5.1 H A/G Ratio0.5 L Calcium Lvl8.5 ALT16 AST7 Alk Phos80 Bili Total0.2 eGFR10 WBC7.9 RBC3.53 L Hgb8.6 L Hct26.7 L MCV75.7 L MCH24.2 L MCHC32.0 RDW20.8 H Sdyyuotk814 MPV8.1 Segs42.6 L Monocytes9.9 Vjuicmrirxs49.5 H Eosinophils5.1 H Basophils0.9 Segs-Bands #3.4 Lymphocytes #3.3 Monocytes #0.8 Eosinophils #0.4 Basophils #0.1 Microcyte1+ VitalsTmp(F)[id number] 08/23 07:[id number]--- 08/23 04:[id number]/[id number]--- 08/23 01:16----99778/56-------- 08/23 00:0098.58375/[id number]--- 08/22 20:[id number]--- 24 Hr Tmax: 98.7F (37.06c) at 08/23 04:0 0Vital Signs are the last 5 in the past 48 hours. DateWt(kg)Wt(lb)Ht(cm)Ht(in)Method 08/12 70.45 155.00Measured 08/11 (initial) 70.45 [id number] 66.00 Estimated I&ORecordInOutBal 08/2023hr Tot 0 0 0 08/1923hr Tot 1967 1900-8606 Medications (24) Active Scheduled Meds (14): 08/12/16 amitriptyline 50 mg PO Bedtime 08/12/16 collagenase topical (Santyl) 1 appl TOP Daily 08/21/16 emollients, topical (Aquaphor H ealing) 1 appl TOP BID 08/12/16 enoxaparin 30 mg SUB-Q [id number] 08/15/16 ferrous sulfate 325 mg PO Daily [...] Q6H 08/19/16 naloxone (Narcan) 0.4 mg IVP WI N 08/12/16 ondansetron 4 mg IVP Q4H 08/19/16 oxyCODONE (Roxicodone) 10 mg PO Q4H 08/12/16 sodium chloride (Saline Flush 0 .9%) 10 ml IVP PRN One Time Meds: None Continuous Infusions (1): 08/19/16 D5W 1/2NS 1,000 mL 1,000 mL 75 ml/hr Extracted from: Title: Clinical Document Author: Santos Hammond MD Date: 08/04 01/18 Came to see patient, He is not very resp onsive. He may be going to ICU. will evaluate him in AM or when he is more alert and responsive. Thank you for the consult.
--- OUTSIDE RECORDS SUMMARY | 2020-03-18 10:22 | XMS REPORT | Summary of Care ---
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 (06/10/16 6:57 AM) 0.1 K/CMM (06/08/16 4:47 AM) Basophils # [0.0-0.2 K/CMM] Normal (06/02/16 5:59 AM) RBC Morph 1+ *ABN* (06/01/16 1:39 PM) Anisocyte [None Seen] 1+ *ABN* (06/11/16 12:41 AM) 1+ *ABN* (06/10/16 6:57 AM) Microcyte [None Seen] Normal (06/10/16 6:57 AM) Normal (06/02/16 5:59 AM) Plt Morph 15.1 seconds *HI* (06/01/16 2:20 PM) PT [12.0-14.7 seconds] 1.17 (06/01/16 2:20 PM) INR [0.85-1.17] 40.4 seconds *HI* (06/01/16 2:20 PM) PTT [22.9-35.8 seconds] Immunizations Given and [...] Extracted from: Title: Progress Note * Author: Vandana Mahoney MD Date: 06/12/16 Impression and Plan 1. Peylonephritis/cystitis, continue ab x as per ID. 2. Pneumonia vs pneumonitis, continue a bx as per ID. cbc in am, refused blood draw for lab today. 3. Acute renal failure, continue IV flu ids, bmp in am. 5. Sacral decubitus ulcer, stage . Con tinue wound care. 6 Chronic dumas catheter, urologist ev aluation pending. 7. Chronic pain. He is on methadone, c onsult pain specialist. 8. Hallucination improved, psychiatrist recommendation appreciated. Decrease xanax and elavil. 9. Asthma. Continue prn albuterol. 10.Disp: LTAC, discussed with CM.
--- OUTSIDE RECORDS SUMMARY | 2020-03-18 10:22 | XMS REPORT | Summary of Care ---
[facility] Address Unknown Phone Unavailable Encounter HQ Georgie(AMARI) [id number] Date(s): 09/10/16 - 09/10/16 [facility] [address] [place] [address]- [phone] Discharge Diagnosis: Unstageable decubitus ulcer with suspected deep tissue inju ry Discharge Disposition: Home or Self Care Attending Physician: Tali Corona MD Admitting Physician: Tali Corona MD Vital Signs 1 2 3 Most recent to oldest [Reference Range]: 182.88 cm (09/10/16 1:37 PM) Height 98 DegF (09/10/16 4:34 PM) 98.0 DegF (09/10/16 1:37 PM) Temperature Oral [96.4-99.1 DegF] 131/78 mmHg (09/10/16 4:34 PM) 125/66 mmHg (09/10/16 3:37 PM) 142/78 mmHg *HI* (09/10/16 1:37 PM) Blood Pressure [90-140/60-90 mmHg] 18 BRMIN (09/10/16 4:34 PM) 18 BRMIN (09/10/16 3:37 PM) 17 BRMIN (09/10/16 1:37 PM) Respiratory Rate [14-20 BRMIN] 100 bpm (09/10/16 4:34 PM) 104 bpm *HI* (09/10/16 3:37 PM) 107 bpm *HI* (09/10/16 1:37 PM) Peripheral Pulse Rate [60-100 bpm] 70.455 kg (09/10/16 1:37 PM) Weight 21.07 m2 (09/10/16 1:37 PM) Body Mass Index Problem List Condition [...] naproxen Active NKFA Active traMADol Active Medications Lactated Ringers Injection IV (Lactated Ringers (Bolus) IV) 1,000 mL, 2,000 ml/hr, Infuse Over: 0.5 hr, Route: IV, 1,000, Drug form: INJ, ON CE, Priority: STAT, Dosing Weight 70.455 kg, Start date: 09/10/16 14:17:00 RETAIL DEPARTMENT SUPERVISOR, Duration: 1 doses or times, Stop date: 09/10/16 14:17:00 RETAIL DEPARTMENT SUPERVISOR Start Date: 09/10/16 Stop Date: 09/10/16 Status: Completed Saline Flush 0.9% 10 mL, Route: IVP, Drug Form: INJ, Dosing Weight 70.455, kg, PRN, PRN Line Flush , Start date: 09/10/16 14:17:00 RETAIL DEPARTMENT SUPERVISOR, Duration: 30 day, Stop date: 10/10/16 14:16 :00 RETAIL DEPARTMENT SUPERVISOR Notes: (Same as: BD Posiflush) Start Date: 09/10/16 Stop Date: 09/10/16 Status: Discontinued Results ELECTROLYTES Most recent to 1 oldest [Reference Range]: Sodium Lvl [135-145 141 mEq/L mEq/L] (09/10/16 2:29 PM) Potassium Lvl 4.4 mEq/L [3.5-5.1 mEq/L] (09/10/16 2:29 PM) Chloride Lvl [95-109 109 mEq/L mEq/L] (09/10/16 2:29 PM) CO2 [24-32 mEq/L] 28 mEq/L (09/10/16 2:29 PM) AGAP [10.0-20.0 8.4 mEq/L mEq/L] *LOW* (09/10/16 2:29 PM) CHEM PANEL Most recent to 1 oldest [Reference Range]: Creatinine Lvl 1.94 mg/dL [0.50-1.40 mg/dL] *HI* (09/10/16 2:29 PM) eGFR 45 mL/min/1.73m2 1 *NA* (09/10/16 2:29 PM) BUN [7-22 mg/dL] 32 mg/dL *HI* (09/10/16 2:29 PM) Glucose Lvl [70-99 101 mg/dL mg/dL] *HI* (09/10/16 2:29 PM) Calcium Lvl 8.5 mg/dL [8.5-10.5 mg/dL] (09/10/16 2:29 PM) Lactic Acid Lvl 1.0 mMol/L [0.5-2.2 mMol/L] (09/10/16 2:29 PM) 1Result Comment: The eGFR is calculated [...] be mul tiplied by the estimated BMI. URINE AND STOOL Most recent to 1 oldest [Reference Range]: UA Turbidity [Clear] Clear (09/10/16 2:30 PM) UA Color [Yellow] Yellow *NA* (09/10/16 2:30 PM) UA pH [5.0-8.0] 7.0 (09/10/16 2:30 PM) UA Spec Grav 1.010 [<=1.030] (09/10/16 2:30 PM) UA Glucose Negative [Negative] (09/10/16 2:30 PM) UA Blood [Negative] Moderate *ABN* (09/10/16 2:30 PM) UA Ketones Negative [Negative] *NA* (09/10/16 2:30 PM) UA Protein [Negative 30 mg/dL mg/dL] *ABN* (09/10/16 2:30 PM) UA Urobilinogen 0.2 EU/dL [0.1-1.0 EU/dL] (09/10/16 2:30 PM) UA Bili [Negative] Negative *NA* (09/10/16 2:30 PM) UA Leuk Est Moderate [Negative] *ABN* (09/10/16 2:30 PM) UA Nitrite Negative [Negative] (09/10/16 2:30 PM) UA WBC [None Seen 3-5 /HPF /HPF] (09/10/16 2:30 PM) UA RBC [0-2 /HPF] 0-2 /HPF (09/10/16 2:30 PM) UA Bacteria [None Occasional /HPF Seen /HPF] (09/10/16 2:30 PM) UA Sq Epi [Few /LPF] Rare /LPF (09/10/16 2:30 PM) HEMATOLOGY Most recent to 1 oldest [Reference Range]: WBC [3.7-10.4 K/CMM] 4.7 K/CMM (09/10/16 2:29 PM) RBC [4.70-6.10 3.32 M/CMM M/CMM] *LOW* (09/10/16 2:29 PM) Hgb [14.0-18.0 g/dL] 8.2 g/dL *LOW* (09/10/16 2:29 PM) Hct [42.0-54.0 %] 25.5 % *LOW* (09/10/16 2:29 PM) MCV [80.0-94.0 fL] 76.8 fL *LOW* (09/10/16 2:29 PM) MCH [27.0-31.0 pg] 24.7 pg *LOW* (09/10/16 2:29 PM) MCHC [32.0-36.0 32.1 g/dL g/dL] (09/10/16 2:29 PM) RDW [11.5-14.5 %] 21.5 % *HI* (09/10/16 2:29 PM) Platelet [133-450 234 K/CMM K/CMM] (09/10/16 2:29 PM) MPV [7.4-10.4 fL] 7.7 fL (09/10/16 2:29 PM) Segs [45.0-75.0 %] 48.0 % (09/10/16 2:29 PM) Lymphocytes 29.0 % [20.0-40.0 %] (09/10/16 2:29 PM) Monocytes [2.0-12.0 16.5 % %] *HI* (09/10/16 2:29 PM) Eosinophils [0.0-4.0 5.7 % %] *HI* (09/10/16 2:29 PM) Basophils [0.0-1.0 0.8 % %] (09/10/16 2:29 PM) Segs-Bands # 2.3 K/CMM [1.5-8.1 K/CMM] (09/10/16 2:29 PM) Lymphocytes # 1.4 K/CMM [1.0-5.5 K/CMM] (09/10/16 2:29 PM) Monocytes # [0.0-0.8 0.8 K/CMM K/CMM] (09/10/16 2:29 PM) Eosinophils # 0.3 K/CMM [0.0-0.5 K/CMM] (09/10/16 2:29 PM) Microcyte [None 1+ Seen] *ABN* (09/10/16 2:29 PM) Immunizations Given and Recorded Vaccine Date [...] Alcohol Never Smoking Status Former smoker; Type: Cigare ttes; Tobacco use per day: 1; Number of years: 15; Total pack years: 15; Started [age] e: 15.0; Stopped at age: 30; Previous treatment: None; Ready to bernstein ge: Yes; Concerns about tobacco use in household: No; Lives with someone wh o smokes; Cigarette Smoking Last 365 Days Yes; Reg Smoking Cessation 

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
--- OUTSIDE RECORDS SUMMARY | 2020-03-18 10:22 | XMS REPORT | Summary of Care ---
Author Author [facility] Organization [facility] Address Unknown Phone Unavailable Encounter MOJGAN Jacques(AMARI) [id number] Date(s): 08/10/16 - 08/10/16 [facility] [address] [place] [address]- Discharge Diagnosis: Diarrhea Discharge Diagnosis: Sacral decubitus ulcer Discharge Diagnosis: Prehypertension Discharge Diagnosis: Nausea and vomiting Discharge Disposition: Home or Self Care Attending Physician: Fabrice Mchugh MD Vital Signs 1 2 3 Most recent to oldest [Reference Range]: 170.18 cm (08/10/16 7:33 PM) Height 98.0 DegF (08/10/16 11:23 PM) 98.2 DegF (08/10/16 7:33 PM) Temperature Oral [96.4-99.1 DegF] 103/65 mmHg (08/10/16 11:23 PM) 95/29 mmHg (08/10/16 8:35 PM) 133/78 mmHg (08/10/16 7:33 PM) Blood Pressure [90-140/60-90 mmHg] 16 BRMIN (08/10/16 7:33 PM) Respiratory Rate [14-20 BRMIN] 83 bpm (08/10/16 7:33 PM) Peripheral Pulse Rate [60-100 bpm] 70.455 kg (08/10/16 7:33 PM) Weight 24.33 m2 (08/10/16 7:33 PM) Body Mass Index Problem List Condition [...] Acinetobacter collected from urine 4Problem added by [employer] Expert. 5Sputum,MDRO 06/10/2016 6Urine - 12/31/15 (CRE) 7Ecoli ESBL isolated from urine 08/08/2015 8SACRUM, 05/27/2015 9URINE, 06/25/2014 E. COLI + ESBL: left & right foot wnd 11MDRO, URINE, 02/11/2012 12MDRO, URINE, 11/06/2011 13Problem added by [employer] Expert. 14Sputum, MDRO 06/10/2016 15urine - 12/31/15 [...] naproxen Active NKFA Active traMADol Active Medications Imodium A-D 2 mg, 1 cap, Route: PO, Drug form: CAP, ONCE, Dosing Weight 70.455, kg, Priority : STAT, Start date: 08/10/16 19:55:00 FIRE PROTECTION ENGINEERING TECHNICIAN, Stop date: 08/10/16 19:55:00 FIRE PROTECTION ENGINEERING TECHNICIAN Notes: (Same as: Imodium) MAX adult dose is 8 caps/day Start Date: 08/10/16 Stop Date: 08/10/16 Status: Discontinued promethazine 12.5 mg, 0.5 mL, Route: IM, Drug form: INJ, ONCE, Dosing Weight 70.455, kg, Prio rity: STAT, Start date: 08/10/16 19:53:00 FIRE PROTECTION ENGINEERING TECHNICIAN, Stop date: 08/10/16 19:53:00 FIRE PROTECTION ENGINEERING TECHNICIAN Notes: Do not give IV push. (Same as: Phenergan) Start Date: 08/10/16 Stop Date: 08/10/16 Status: Completed promethazine 25 mg oral tablet 25 mg = 1 tab, PO, Q6H, PRN Nausea/Vomiting, FOR BREAK THROUGH NAUSEA OR VOMITIN G, X 3 day, # 12 tab, 0 Refill(s) Start Date: 08/10/16 Stop Date: 08/13/16 Status: Suspended Results No data available for this section [...]
--- OUTSIDE RECORDS SUMMARY | 2020-03-18 10:22 | XMS REPORT | Summary of Care ---
Author Author [facility] Organization [facility] Address Unknown Phone Unavailable Encounter MOJGAN Jacques(AMARI) [id number] Date(s): 08/29/16 - 09/04/16 [facility] [address] [place] [address]- S [phone] Discharge Disposition: Home or Self Care Attending Physician: Tali Corona MD Admitting Physician: Tali Corona MD Vital Signs 1 2 3 Most recent to oldest [Reference Range]: 185.42 cm (08/30/16 3:40 AM) Height 98.2 DegF (09/04/16 11:00 AM) 98.3 DegF (09/04/16 7:00 AM) 97.8 DegF (09/04/16 4:00 AM) Temperature Oral [96.4-99.1 DegF] 110/71 mmHg (09/04/16 11:00 AM) 116/76 mmHg (09/04/16 7:00 AM) 107/68 mmHg (09/04/16 4:00 AM) Blood Pressure [90-140/60-90 mmHg] 19 BRMIN (09/04/16 11:00 AM) 19 BRMIN (09/04/16 7:00 AM) 18 BRMIN (09/04/16 4:00 AM) Respiratory Rate [14-20 BRMIN] 90 bpm (09/04/16 11:00 AM) 103 bpm *HI* (09/04/16 7:00 AM) 91 bpm (09/04/16 4:00 AM) Peripheral Pulse Rate [60-100 bpm] 75.455 kg (08/30/16 3:40 AM) 78.182 kg (08/29/16 11:02 PM) Weight 21.95 m2 (08/30/16 3:40 AM) Body Mass Index Problem List Condition [...] 34 Wheelchair Active bound(Confirmed) 1MDRO -- SACRUM, 05/27/201513-12 MDR-Acinetobacter: right foot wnd --MDRO Acinetobacter collected [...] PO, Drug form: TAB, Q4H, Dosing Weight 75.455, kg, PRN Maxwell n 1-3/Temp > 100.4 F, Start date: 08/30/16 4:53:00 GUIDE DOG TRAINER, Duration: 30 day, Stop date: 09/29/16 4:52:00 GUIDE DOG TRAINER Notes: Do not exceed 4 gm/day. (Same as: Tylenol) Start Date: 08/30/16 Stop Date: 09/04/16 Status: Discontinued amitriptyline 50 mg, 2 tab, Route: PO, Drug form: TAB, Bedtime, Dosing Weight 75.455, kg, Star t date: 08/30/16 21:00:00 GUIDE DOG TRAINER, Duration: 30 day, Stop date: 09/28/16 21:00:00 CS T Notes: (Same as: Elavil) Start Date: 08/30/16 Stop Date: 09/04/16 Status: Discontinued amitriptyline 50 mg oral tablet 50 mg = 1 tab, PO, Bedtime, # 14 tab, 0 Refill(s) Start Date: 09/04/16 Stop Date: 09/18/16 Status: Ordered Diflucan 100 mg, 1 tab, Route: PO, Drug form: TAB, [id number], Dosing Weight 75.455, kg, Sta rt date: 08/31/16 14:00:00 GUIDE DOG TRAINER, Duration: 7 day, Stop date: 09/06/16 14:00:00 CS T Notes: (Same as: Diflucan) Start Date: 08/31/16 Stop Date: 09/03/16 Status: Discontinued Diflucan 200 mg, 100 mL, Route: IV, Drug form: INJ, ONCE, Dosing Weight 75.455, kg, Start date: 08/30/16 13:14:00 GUIDE DOG TRAINER, Stop date: 08/30/16 13:14:00 GUIDE DOG TRAINER Notes: (Same as: Diflucan) Do not refrigerate Start Date: 08/30/16 Stop Date: 08/30/16 Status: Completed Dilaudid 1 mg, Route: IV, ONCE, Dosing Weight 78.182, kg, Priority: STAT, Start date: 1:10:00 GUIDE DOG TRAINER, Stop date: 08/30/16 1:10:00 GUIDE DOG TRAINER Start Date: 08/30/16 Stop Date: 08/30/16 Status: Completed docusate 100 mg, 1 cap, Route: PO, Drug form: CAP, BID, Dosing Weight 75.455, kg, PRN Con stipation, Start date: 08/30/16 4:53:00 GUIDE DOG TRAINER, Duration: 30 day, Stop date: 4:52:00 GUIDE DOG TRAINER Notes: (Same as: Colace) (Do Not Crush) Start Date: 08/30/16 Stop Date: 09/04/16 Status: Discontinued docusate sodium 100 mg oral capsule 100 mg, 1 cap, Route: PO, Drug form: CAP, BID, Dosing Weight 75.455, kg, PRN Con stipation, Start date: 08/30/16 8:17:00 GUIDE DOG TRAINER, Duration: 30 day, Stop date: 8:16:00 GUIDE DOG TRAINER Start Date: 08/30/16 Stop Date: 08/30/16 Status: Deleted ferrous sulfate 325 mg, 1 tab, Route: PO, Drug form: ECTAB, Daily, Dosing Weight 75.455, kg, Sta rt date: 08/30/16 9:00:00 GUIDE DOG TRAINER, Duration: 30 day, Stop date: 09/28/16 9:00:00 GUIDE DOG TRAINER Notes: Give with food. "Do Not Crush" Start Date: 08/30/16 Stop Date: 09/04/16 Status: Discontinued fluconazole 100 mg oral tablet 100 mg = 1 tab, PO, [id number], X 7 day, # 7 tab, 0 Refill(s) Start Date: 09/04/16 Stop Date: 09/11/16 Status: Ordered fluconazole 100 mg oral tablet 100 mg = 1 tab, PO, [id number], 0 Refill(s) Start Date: 08/30/16 Stop Date: 09/04/16 Status: Discontinued folic acid 1 mg, 1 tab, Route: PO, Drug form: TAB, Daily, Dosing Weight 75.455, kg, Start d ate: 08/30/16 9:00:00 GUIDE DOG TRAINER, Duration: 30 day, Stop date: 09/28/16 9:00:00 GUIDE DOG TRAINER Notes: (Same as: Folvite) Start Date: 08/30/16 Stop Date: 09/04/16 Status: Discontinued heparin 5,000 unit, 1 mL, Route: SUB-Q, Drug form: INJ, Q12H, Dosing Weight 75.455, kg, Start date: 08/30/16 9:00:00 GUIDE DOG TRAINER, Duration: 30 day, Stop date: 09/28/16 21:00:00 GUIDE DOG TRAINER Notes: porcine heparin Start Date: 08/30/16 Stop Date: 09/04/16 Status: Discontinued hydromorphone 1 mg, 1 mL, Route: IV, Drug form: INJ, ONCE, Dosing Weight 75.455, kg, Start river e: 08/30/16 4:38:00 GUIDE DOG TRAINER, Stop date: 08/30/16 4:38:00 GUIDE DOG TRAINER Notes: Same as: Dilaudid Start Date: 08/30/16 Stop Date: 08/30/16 Status: Completed Levi 24 gm packet 1 pkt, Route: PO, Drug Form: PWDR, Dosing Weight 75.455, kg, BID-Before Meals, S tart date: 08/30/16 16:30:00 GUIDE DOG TRAINER, Duration: 28 day, Stop date: 09/27/16 7:30:00 GUIDE DOG TRAINER, Substitute Allowed: No Notes: (Same as: Levi Tompkins) Start Date: 08/30/16 Stop Date: 09/04/16 Status: Discontinued Levi 24 gram Levi 24 gram, See Instructions, 1-3 packets daily with meals, # 1 box, Refill(s ) 1 Start Date: 08/30/16 Status: Ordered Kayexalate 15 gm, 60 mL, Route: PO, Drug form: SUSP, QID, Dosing Weight 75.455, kg, Start d ate: 08/30/16 9:00:00 GUIDE DOG TRAINER, Duration: 1 day, Stop date: 08/30/16 21:00:00 GUIDE DOG TRAINER Notes: (sodium polystyrene sulfonate 15 gm/60 ml SOLITARIO) Shake well before use. (Same as: Kayexalate, SPS) Start Date: 08/30/16 Stop Date: 08/30/16 Status: Discontinued meropenem + sodium chloride 0.9% INJ 100 mL 500 mg, Route: IVPB, Drug form: PDR/INJ, ABXQ8H, Dosing Weight 75.455, kg, CrCL= 10 -25 ml/min, Extended infusion, infuse over 3 hours, Start date: 08/30/16 10 :00:00 GUIDE DOG TRAINER, Duration: 30 day, Stop date: 09/29/16 2:00:00 GUIDE DOG TRAINER Notes: Same as Merrem MEDICATION WASTE Product Size: 500 mgProduct Wast ed: ___ mg Start Date: 08/30/16 Stop Date: 09/04/16 Status: Discontinued meropenem + sodium chloride 0.9% INJ 100 mL 1,000 mg, Route: IV, ONCE, Dosing Weight 78.182, kg, Start date: 08/30/16 0:14:0 0 GUIDE DOG TRAINER, Stop date: 08/30/16 0:14:00 GUIDE DOG TRAINER Notes: (Same as: Merrem) . MEDICATION WASTE Product Size: 1000 mgProduc t Wasted: ___ mg Start Date: 08/30/16 Stop Date: 08/30/16 Status: Completed meropenem 1 g intravenous injection 1 gm, IV, Q24H, X 10 day, # 1 box, 0 Refill(s) Start Date: 08/30/16 Stop Date: 09/09/16 Status: Ordered methadone 20 mg, 2 tab, Route: PO, Drug form: TAB, BID, Dosing Weight 75.455, kg, Start da te: 08/30/16 9:00:00 GUIDE DOG TRAINER, Duration: 30 day, Stop date: 09/28/16 17:00:00 GUIDE DOG TRAINER Notes: (Same as: Dolophine) Start Date: 08/30/16 Stop Date: 09/04/16 Status: Discontinued metoprolol tartrate 12.5 mg, 0.5 tab, Route: PO, Drug form: TAB, Q12H, Dosing Weight 75.455, kg, Sta rt date: 08/30/16 9:00:00 GUIDE DOG TRAINER, Duration: 30 day, Stop date: 09/28/16 21:00:00 CS T Notes: (Same as: Lopressor) Start Date: 08/30/16 Stop Date: 09/04/16 Status: Discontinued metoprolol tartrate 25 mg oral tablet 12.5 mg = 0.5 tab, PO, Q12H, # 30 tab, 0 Refill(s) Start Date: 09/04/16 Stop Date: 10/04/16 Status: Ordered morphine Sulfate 2 mg, 1 mL, Route: IVP, Drug form: INJ, Q4H, Dosing Weight 75.455, kg, PRN Pain Score 7-10, Start date: 08/30/16 4:53:00 GUIDE DOG TRAINER, Duration: 30 day, Stop date: 09/29 4:52:00 GUIDE DOG TRAINER Notes: (Same as:MORPhine Sulfate) Start Date: 08/30/16 Stop Date: 09/04/16 Status: Discontinued ondansetron 4 mg, 2 mL, Route: IVP, Drug form: INJ, Q6H, Dosing Weight 75.455, kg, PRN Nause a & Vomiting, Start date: 08/30/16 4:53:00 GUIDE DOG TRAINER, Duration: 30 day, Stop date: 09/29/16 4:52:00 GUIDE DOG TRAINER Notes: (Same as: Klaus) MEDICATION WASTE Product Size: 4 mgProduct Was reinaldo: ___ mg Start Date: 08/30/16 Stop Date: 09/04/16 Status: Discontinued pantoprazole 40 mg, 1 tab, Route: PO, Drug form: ECTAB, Before Dinner, Dosing Weight 75.455, kg, Start date: 08/30/16 16:30:00 GUIDE DOG TRAINER, Duration: 30 day, Stop date: 09/28/16 16: 30:00 GUIDE DOG TRAINER Notes: Tablet should not be chewed or crushed.(Same as: Protonix) Start Date: 08/30/16 Stop Date: 09/04/16 Status: Discontinued potassium chloride 20 mEq/15 mL oral liquid 20 mEq, 15 mL, Route: PO, Drug form: LIQ, ONCE, Dosing Weight 75.455, kg, Start date: 08/31/16 9:29:00 GUIDE DOG TRAINER, Stop date: 08/31/16 9:29:00 GUIDE DOG TRAINER Notes: (Same as: Potassium Chloride) Start Date: 08/31/16 Stop Date: 08/31/16 Status: Completed pregabalin 150 mg, 2 cap, Route: PO, Drug form: CAP, BID, Dosing Weight 75.455, kg, Start d ate: 08/30/16 9:00:00 GUIDE DOG TRAINER, Duration: 30 day, Stop date: 09/28/16 17:00:00 GUIDE DOG TRAINER Notes: (Same as: Lyrica) Start Date: 08/30/16 Stop Date: 09/04/16 Status: Discontinued pregabalin 150 mg oral capsule 150 mg = 1 cap, PO, BID, # 60 cap, 0 Refill(s) Start Date: 09/04/16 Stop Date: 10/04/16 Status: Ordered Rocephin + sodium chloride 0.9% INJ 100 mL 1 gm, Route: IVPB, ONCE, Dosing Weight 70.455, kg, Priority: STAT, Start date: 0 08/29/16 23:04:00 GUIDE DOG TRAINER, Stop date: 08/29/16 23:04:00 GUIDE DOG TRAINER Notes: (Same As: Rocephin).Use with 100 mL NS and infuse over 30 min MEDICA TION WASTE Product Size: 1000 mgProduct Wasted: ___ mg Start Date: 08/29/16 Stop Date: 08/29/16 Status: Completed Saline Flush 0.9% 10 mL, Route: IVP, Drug Form: INJ, Dosing Weight 70.455, kg, PRN, PRN Line Flush , Start date: 08/29/16 23:04:00 GUIDE DOG TRAINER, Duration: 30 day, Stop date: 09/28/16 23:03 :00 GUIDE DOG TRAINER Notes: (Same as: BD Posiflush) Start Date: 08/29/16 Stop Date: 08/30/16 Status: Discontinued Santyl 1 appl, Route: TOP, Daily, Drug form: OINT, Start date: 08/30/16 9:00:00 GUIDE DOG TRAINER, Du ration: 30 day, Stop date: 09/28/16 9:00:00 GUIDE DOG TRAINER Notes: (Same As: Santyl) Start Date: 08/30/16 Stop Date: 09/04/16 Status: Discontinued Sodium Chloride 0.9% (Bolus) IV 1,000 mL, 1000 ml/hr, Infuse Over: 1 hr, Route: IV, 1,000, Drug form: INJ, ONCE, Priority: STAT, Dosing Weight 70.455 kg, Start date: 08/29/16 23:04:00 GUIDE DOG TRAINER, Dur ation: 1 doses or times, Stop date: 08/29/16 23:04:00 GUIDE DOG TRAINER Start Date: 08/29/16 Stop Date: 08/29/16 Status: Completed Sodium Chloride 0.9% (Bolus) IV 2,000 mL, 2000 ml/hr, Infuse Over: 1 hr, Route: IV, 2,000, Drug form: INJ, ONCE, Priority: STAT, Dosing Weight 78.182 kg, Start date: 08/30/16 0:15:00 GUIDE DOG TRAINER, Dura tion: 1 doses or times, Stop date: 08/30/16 0:15:00 GUIDE DOG TRAINER Start Date: 08/30/16 Stop Date: 08/30/16 Status: Completed sodium chloride 0.9% 1000 ml INJ 1,000 mL 1,000 mL, Rate: 75 ml/hr, Infuse over: 13.3 hr, Route: IV, Dosing Weight 75.455 kg, Total Volume: 1,000, Start date: 08/31/16 10:20:00 GUIDE DOG TRAINER, Duration: 1 doses or times, Stop date: 08/31/16 23:37:00 GUIDE DOG TRAINER Start Date: 08/31/16 Stop Date: 08/31/16 Status: Completed sodium chloride 0.9% 1000 ml INJ 1,000 mL 1,000 mL, Rate: 75 ml/hr, Infuse over: 13.3 hr, Route: IV, Dosing Weight 75.455 kg, Total Volume: 1,000, Start date: 08/30/16 16:44:00 GUIDE DOG TRAINER, Duration: 30 day, St op date: 09/29/16 16:43:00 GUIDE DOG TRAINER Start Date: 08/30/16 Stop Date: 08/31/16 Status: Discontinued tizanidine 4 mg, 1 tab, Route: PO, Drug form: TAB, TID, Dosing Weight 75.455, kg, Start river e: 08/30/16 9:00:00 GUIDE DOG TRAINER, Duration: 30 day, Stop date: 09/28/16 17:00:00 GUIDE DOG TRAINER Notes: (Same As: Zanaflex) Start Date: 08/30/16 Stop Date: 09/04/16 Status: Discontinued tolterodine 4 mg, 1 cap, Route: PO, Drug form: CAP, Daily, Dosing Weight 75.455, kg, Start d ate: 08/30/16 9:00:00 GUIDE DOG TRAINER, Duration: 30 day, Stop date: 09/28/16 9:00:00 GUIDE DOG TRAINER Notes: Do Not Crush. (Same As: Detrol LA) Start Date: 08/30/16 Stop Date: 09/04/16 Status: Discontinued Tylenol with Codeine #3 oral tablet 1 - 2 tab, PO, Q4H, PRN Pain, X 2 day, # 20 tab, 0 Refill(s) Start Date: 09/04/16 Stop Date: 09/06/16 Status: Completed vancomycin + sodium chloride 0.9% 250 mL INJ (for IV set) 250 mL Route: IVPB, ONCE, Dosing Weight 78.182, kg, Priority: STAT, Start date: 7 1:48:00 GUIDE DOG TRAINER, Stop date: 08/30/16 1:48:00 GUIDE DOG TRAINER Notes: TIME CRITICAL MEDICATION(Same As: Vancocin)Infusion rate< 1000 mg: infuse over 1 [id number] - 1500 mg: infuse over 1.5 [id number] - 2000 mg: infuse over 2 hours> 2001 mg: infuse over 2.5 hours MEDICATION WASTE Product Size: 1000 mgProduct Wasted: ___ mg Start Date: 08/30/16 Stop Date: 08/30/16 Status: Completed vancomycin + sodium chloride 0.9% INJ 250 mL 1,250 mg, 250 ml/hr, Route: IV, Drug Form: INJ, Dosing Weight 75.455, kg, ABXQ24 H, Start date: 08/31/16 2:00:00 GUIDE DOG TRAINER, Duration: 30 day, Stop date: 09/29/16 2:00: 00 GUIDE DOG TRAINER Notes: TIME CRITICAL MEDICATION(Same As: Vancocin)Infusion rate< 1000 mg: infuse over 1 [id number] - 1500 mg: infuse over 1.5 [id number] - 2000 mg: infuse over 2 hours> 2001 mg: infuse over 2.5 hours MEDICATION WASTE Product Size: 1000 mgProduct Wasted: ___ mg Start Date: 08/31/16 Stop Date: 08/30/16 Status: Canceled Xanax 1 mg oral tablet 1 mg, 1 tab, Route: PO, Drug form: TAB, BID, Dosing Weight 75.455, kg, Start river e: 08/30/16 9:00:00 GUIDE DOG TRAINER, Duration: 30 day, Stop date: 09/28/16 17:00:00 GUIDE DOG TRAINER Notes: With food or milk(Same as: Xanax) Start Date: 08/30/16 Stop Date: 09/04/16 Status: Discontinued Xanax 1 mg oral tablet 1 mg = 1 tab, PO, BID, X 7 day, # 14 tab, 0 Refill(s) Start Date: 09/04/16 Stop Date: 09/11/16 Status: Ordered Xanax 1 mg oral tablet 1 mg = 1 tab, PO, BID, 0 Refill(s) Start Date: 08/30/16 Stop Date: 09/04/16 Status: Deleted Zosyn 4.5 gm, Route: IVPB, ONCE, Dosing Weight 78.182, kg, Priority: STAT, Start date: 08/30/16 0:11:00 GUIDE DOG TRAINER, Stop date: 08/30/16 0:11:00 GUIDE DOG TRAINER Start Date: 08/30/16 Stop Date: 08/30/16 Status: Discontinued Zosyn + sodium chloride 0.9% INJ 100 mL 3.375 gm, Route: IVPB, ABXQ8H, Dosing Weight 75.455, kg, CrCl >= 20 ml/min infuse over 4 hours, Start date: 08/30/16 6:00:00 GUIDE DOG TRAINER, Duration: 30 day, Stop date: 09/28/16 22:00:00 GUIDE DOG TRAINER Notes: (Same as: Zosyn)Dosing based on Piperacillin component MEDICATION [place] Product Size: 3375 mgProduct Wasted: __0 mg Start Date: 08/30/16 Stop Date: 08/30/16 Status: Canceled Results ELECTROLYTES 1 2 3 Most recent to oldest [Reference Range]: 141 mEq/L (09/04/16 12:10 PM) 144 mEq/L (09/03/16 4:30 AM) 145 mEq/L (09/02/16 5:20 AM) Sodium Lvl [135-145 mEq/L] 4.8 mEq/L (09/04/16 12:10 PM) 4.1 mEq/L (09/03/16 4:30 AM) 3.9 mEq/L (09/02/16 5:20 AM) Potassium Lvl [3.5-5.1 mEq/L] 107 mEq/L (09/04/16 12:10 PM) 111 mEq/L *HI* (09/03/16 4:30 AM) 113 mEq/L *HI* (09/02/16 5:20 AM) Chloride Lvl [95-109 mEq/L] 27 mEq/L (09/04/16 12:10 PM) 23 mEq/L *LOW* (09/03/16 4:30 AM) 22 mEq/L *LOW* (09/02/16 5:20 AM) CO2 [24-32 mEq/L] 11.8 mEq/L (09/04/16 12:10 PM) 14.1 mEq/L (09/03/16 4:30 AM) 13.9 mEq/L (09/02/16 5:20 AM) AGAP [10.0-20.0 mEq/L] CHEM PANEL 1 2 3 Most recent to oldest [Reference Range]: 2.30 mg/dL *HI* (09/04/16 12:10 PM) 2.53 mg/dL *HI* (09/03/16 4:30 AM) 2.67 mg/dL *HI* (09/02/16 5:20 AM) Creatinine Lvl [0.50-1.40 mg/dL] 36 mL/min/1.73m2 1 *NA* (09/04/16 12:10 PM) 33 mL/min/1.73m2 2 *NA* (09/03/16 4:30 AM) 30 mL/min/1.73m2 3 *NA* (09/02/16 5:20 AM) eGFR 44 mg/dL *HI* (09/04/16 12:10 PM) 36 mg/dL *HI* (09/03/16 4:30 AM) 35 mg/dL *HI* (09/02/16 5:20 AM) BUN [7-22 mg/dL] 11 (08/30/16 1:17 AM) B/C Ratio [6-25] 134 mg/dL *HI* (09/04/16 12:10 PM) 122 mg/dL *HI* (09/03/16 4:30 AM) 112 mg/dL *HI* (09/02/16 5:20 AM) Glucose Lvl [70-99 mg/dL] 9.8 g/dL *HI* (08/30/16 1:17 AM) Total Protein [6.4-8.4 g/dL] 3.4 g/dL *LOW* (08/30/16 1:17 AM) Albumin Lvl [3.5-5.0 g/dL] 6.4 g/dL *HI* (08/30/16 1:17 AM) Globulin [2.7-4.2 g/dL] 0.5 *LOW* (08/30/16 1:17 AM) A/G Ratio [0.7-1.6] 8.2 mg/dL *LOW* (09/04/16 12:10 PM) 8.2 mg/dL *LOW* (09/03/16 4:30 AM) 8.1 mg/dL *LOW* (09/02/16 5:20 AM) Calcium Lvl [8.5-10.5 mg/dL] 31 unit/L (08/30/16 1:17 AM) ALT [0-65 unit/L] 17 unit/L (08/30/16 1:17 AM) AST [0-37 unit/L] 104 unit/L (08/30/16 1:17 AM) Alk Phos [39-136 unit/L] 0.3 mg/dL (08/30/16 1:17 AM) Bili Total [0.2-1.3 mg/dL] 1.5 mMol/L (08/29/16 11:37 PM) Lactic Acid Lvl [0.5-2.2 mMol/L] 1Result [...] 3 Most recent to oldest [Reference Range]: 0.02 ng/mL (08/30/16 1:17 AM) Troponin-I [0.00-0.40 ng/mL] DRUG SCREEN 1 2 3 Most recent to oldest [Reference Range]: Negative *NA* (08/30/16 6:30 AM) U Amph Scr [Negative] Negative *NA* (08/30/16 6:30 AM) U Chelsie Scr [Negative] Negative *NA* (08/30/16 6:30 AM) U Benzodia Scr [Negative] Negative *NA* (08/30/16 6:30 AM) U Cocaine Scr [Negative] Negative *NA* (08/30/16 6:30 AM) U Opiate Scr [Negative] Negative *NA* (08/30/16 6:30 AM) U Phencyc Scr [Negative] Negative *NA* (08/30/16 6:30 AM) U Cannab Scr [Negative] See Note *NA* (08/30/16 6:30 AM) UDS Note URINE AND STOOL 1 2 3 Most recent to oldest [Reference Range]: Clear (08/29/16 11:37 PM) UA Turbidity [Clear] Yellow *NA* (08/29/16 11:37 PM) UA Color [Yellow] 6.5 (08/29/16 11:37 PM) UA pH [5.0-8.0] 1.020 (08/29/16 11:37 PM) UA Spec Grav [<=1.030] 250 mg/dL *ABN* (08/29/16 11:37 PM) UA Glucose [Negative mg/dL] Large *ABN* (08/29/16 11:37 PM) UA Blood [Negative] Negative *NA* (08/29/16 11:37 PM) UA Ketones [Negative] 100 mg/dL *ABN* (08/29/16 11:37 PM) UA Protein [Negative mg/dL] 0.2 EU/dL (08/29/16 11:37 PM) UA Urobilinogen [0.1-1.0 EU/dL] Negative *NA* (08/29/16 11:37 PM) UA Bili [Negative] Moderate *ABN* (08/29/16 11:37 PM) UA Leuk Est [Negative] Negative (08/29/16 11:37 PM) UA Nitrite [Negative] 6-10 /HPF *ABN* (08/29/16 11:37 PM) UA WBC [None Seen /HPF] 6-10 /HPF *ABN* (08/29/16 11:37 PM) UA RBC [0-2 /HPF] None Seen (08/29/16 11:37 PM) UA Sq Epi [Few] Occasional /HPF *ABN* (08/29/16 11:37 PM) UA [place] Yeast [None Seen /HPF] IMMUNOLOGY 1 2 3 Most recent to oldest [Reference Range]: 53.7 mg/L *HI* (09/03/16 4:30 AM) CRP [<=2.9 mg/L] HEMATOLOGY 1 2 3 Most recent to oldest [Reference Range]: 7.9 K/CMM (09/04/16 12:10 PM) 5.7 K/CMM (09/03/16 4:30 AM) 9.3 K/CMM (08/31/16 4:25 AM) WBC [3.7-10.4 K/CMM] 3.42 M/CMM *LOW* (09/04/16 12:10 PM) 3.56 M/CMM *LOW* (09/03/16 4:30 AM) 3.51 M/CMM *LOW* (08/31/16 4:25 AM) RBC [4.70-6.10 M/CMM] 8.4 g/dL *LOW* (09/04/16 12:10 PM) 8.6 g/dL *LOW* (09/03/16 4:30 AM) 8.5 g/dL *LOW* (08/31/16 4:25 AM) Hgb [14.0-18.0 g/dL] 26.6 % *LOW* (09/04/16 12:10 PM) 27.7 % *LOW* (09/03/16 4:30 AM) 26.8 % *LOW* (08/31/16 4:25 AM) Hct [42.0-54.0 %] 77.8 fL *LOW* (09/04/16 12:10 PM) 77.8 fL *LOW* (09/03/16 4:30 AM) 76.2 fL *LOW* (08/31/16 4:25 AM) MCV [80.0-94.0 fL] 24.5 pg *LOW* (09/04/16 12:10 PM) 24.2 pg *LOW* (09/03/16 4:30 AM) 24.3 pg *LOW* (08/31/16 4:25 AM) MCH [27.0-31.0 pg] 31.5 g/dL *LOW* (09/04/16 12:10 PM) 31.1 g/dL *LOW* (09/03/16 4:30 AM) 31.8 g/dL *LOW* (08/31/16 4:25 AM) MCHC [32.0-36.0 g/dL] 21.3 % *HI* (09/04/16 12:10 PM) 21.4 % *HI* (09/03/16 4:30 AM) 21.2 % *HI* (08/31/16 4:25 AM) RDW [11.5-14.5 %] 228 K/CMM (09/04/16 12:10 PM) 224 K/CMM (09/03/16 4:30 AM) 253 K/CMM (08/31/16 4:25 AM) Platelet [133-450 K/CMM] 8.0 fL (09/04/16 12:10 PM) 8.2 fL (09/03/16 4:30 AM) 8.3 fL (08/31/16 4:25 AM) MPV [7.4-10.4 fL] 38.2 % *LOW* (09/04/16 12:10 PM) 34.7 % *LOW* (09/03/16 4:30 AM) 53.4 % (08/31/16 4:25 AM) Segs [45.0-75.0 %] 41.2 % *HI* (09/04/16 12:10 PM) 43.3 % *HI* (09/03/16 4:30 AM) 31.9 % (08/31/16 4:25 AM) Lymphocytes [20.0-40.0 %] 11.2 % (09/04/16 12:10 PM) 10.9 % (09/03/16 4:30 AM) 9.9 % (08/31/16 4:25 AM) Monocytes [2.0-12.0 %] 8.6 % *HI* (09/04/16 12:10 PM) 10.4 % *HI* (09/03/16 4:30 AM) 3.7 % (08/31/16 4:25 AM) Eosinophils [0.0-4.0 %] 0.8 % (09/04/16 12:10 PM) 0.7 % (09/03/16 4:30 AM) 1.1 % *HI* (08/31/16 4:25 AM) Basophils [0.0-1.0 %] 3.0 K/CMM (09/04/16 12:10 PM) 2.0 K/CMM (09/03/16 4:30 AM) 5.0 K/CMM (08/31/16 4:25 AM) Segs-Bands # [1.5-8.1 K/CMM] 3.3 K/CMM (09/04/16 12:10 PM) 2.5 K/CMM (09/03/16 4:30 AM) 3.0 K/CMM (08/31/16 4:25 AM) Lymphocytes # [1.0-5.5 K/CMM] 0.9 K/CMM *HI* (09/04/16 12:10 PM) 0.6 K/CMM (09/03/16 4:30 AM) 0.9 K/CMM *HI* (08/31/16 4:25 AM) Monocytes # [0.0-0.8 K/CMM] 0.7 K/CMM *HI* (09/04/16 12:10 PM) 0.6 K/CMM *HI* (09/03/16 4:30 AM) 0.3 K/CMM (08/31/16 4:25 AM) Eosinophils # [0.0-0.5 K/CMM] 0.1 K/CMM (09/04/16 12:10 PM) 0.1 K/CMM (08/31/16 4:25 AM) 0.1 K/CMM (08/29/16 11:37 PM) Basophils # [0.0-0.2 K/CMM] 1+ *ABN* (09/04/16 12:10 PM) 1+ *ABN* (09/03/16 4:30 AM) 1+ *ABN* (08/31/16 4:25 AM) Microcyte [None Seen] 72 mm/hr *HI* (09/03/16 4:30 AM) Sed Rate [0-15 mm/hr] 14.5 seconds (08/30/16 1:17 AM) PT [12.0-14.7 seconds] 1.11 (08/30/16 1:17 AM) INR [0.85-1.17] 34.0 seconds (08/30/16 1:17 AM) PTT [22.9-35.8 seconds] Immunizations Given and Recorded [...] Employment/School Status: Unemployed. Alcohol Never Smoking Status Never smoker; Ready to [employer]: No; Concerns about tobacco use in household: No; Exposure to Tobacco Smoke None; Cig arette Smoking Last 365 Days No; Reg Smoking Cessation Counseling No Assessment and Plan Extracted from: Title: Clinical Document Author: Vipul Dukes MD Date: 09/04/16 Progress Note Nephrology SUBJECTIVE Physical Exam Gen: NAD, AOx3 HEENT: MMM, anicteric CVS: RRR no r Lung: CTA bilaterally Abd: soft, nontender Ext: no c/c/e Neuro: paraplegic, EOMI ASSESSMENT 1- acute renal failure cr down to 2.3 2- discharge planning 3- discussed with case management OBJECTIVE VitalsTmp(F)Tmp(C)GgblqDKSPKBdtdzMVAhR1RXM5TDMH4 09/04 11:[id number]/71---[id number]- ----- 09/04 07:0098.336.40xmpe737/76---[id number] ------ 09/04 04:7.836.07olsm193/68---[id number]- ----- 09/04 00:7.836.28sxex532/72---[id number]- ----- 09/03 20:7.636.59rplk612/70---[id number] ------ 24 Hr Tmax: 98.3F (36.83c) at 09/04 07:0 0Vital Signs are the last 5 in the past 48 hours. 24 Hr Tmin: 97.8F (36.56c) at 09/04 04: 00Weights are the last 5 in 60 days, plus initial. DateWt(kg)Wt(lb)Ht(cm)Ht(in)MethodBMIBSA 08/30 75.45 166.99856.42 73.00Measured 2 1.91.97 08/29 (initial) 78.18 172.00Measured 85.42 73.00Stated (no point of care glucose results charte d in last 24 hours) Most Recent Scores: 09/04/16Glasgow Coma Score15 09/04/16Pain Intensity NRS (0-10)0 09/04/16Johns Balderrama Fall Score8 09/04/16Braden Score16 Lines, Tubes, and Drains: 09/03/2016 14:04 Central Lines: Internal jugular, right Tunneled (other than dialysis) Double 08/29/2016 23:02 Indwelling Urinary Cath eter: Urethral Other: Indwelling/Continuous 08/29/2016 23:02 GI Ostomy: Colostomy Co ntinent abdomen (no surgical procedures documented) Input/Output RecordInOutBal 09/123hr Tot 101 [id number] 08/3123hr Tot 502 [id number] -[id number] Scheduled Meds: None Unscheduled Meds: None PRN Meds: None One Time Meds: None Continuous Infusions: None Labs (Last four charted values) WBC 7.9(SEP 04)5.7(SEP 03)9.3(AUG 31)H 18.9(AUG 29) Hgb L 8.4(SEP 04)L 8.6(SEP 03)L 8.5(AUG 31)L 11.7(AUG 29) Hct L 26.6(SEP 04)L 27.7(SEP 03)L 26.8(AUG 31)L 36.8(AUG 29) Plt 228(SEP 04)224(SEP 03)253(AUG 31)355(AUG 29) Na 141(SEP 04)144(SEP 03)145(SEP 02)143(SEP 01) K 4.8(SEP 04)4.1(SEP 03)3.9(SEP 02)3.8(SEP 01) CO2 27(SEP 04)L 23(SEP 03)L 22(SEP 02)L 21(SEP 01) Cl 107(SEP 04)H 111(SEP 03)H 113(SEP 02)H 112(SEP 01) Cr H 2.30(SEP 04)H 2.53(SEP 03)H 2.67(SEP 02)H 2.69(SEP 01) BUN H 44(SEP 04)H 36(SEP 03)H 35(SEP 02)H 32(SEP 01) Glucose Random H 134(SEP 04)H 122(SEP 03)H 112(SEP 02)91(SEP 01) Ca L 8.2(SEP 04)L 8.2(SEP 03)L 8.1(SEP 02)L 7.7(SEP 01) PT 14.5(AUG 30) INR 1.11(AUG 30) PTT 34.0(AUG 30) Troponin 0.02(AUG 30) Extracted from: Title: Discharge Summary * Author: Francisco Sanz MD [...] ulcer pres ent on admission . Extracted from: Title: Clinical Document Author: Vipul Dukes MD Date: 08/30/16 consult will be covered by Dr Skyler verde Extracted from: Title: History and Physical Author: Maldonado Valdez MD [...]
--- OUTSIDE RECORDS SUMMARY | 2020-03-18 10:23 | XMS REPORT | Summary of Care ---
Author Author [facility] Organization [facility] Address Unknown Phone Unavailable Encounter HQ Georgie(FIN) [id number] Date(s): 11/04/16 - 11/04/16 [facility] [address] [place] [address]- [facility] [phone] Discharge Diagnosis: Chronic pain disorder Discharge Diagnosis: Encounter for wound re-check Discharge Disposition: Home or Self Care Attending Physician: Jimmy Anderson MD Vital Signs Most recent to 1 oldest [Reference Range]: Temperature Oral 98.4 DegF [96.4-99.1 DegF] (11/04/16 10:44 PM) Blood Pressure 155/80 mmHg [90-140/60-90 mmHg] *HI* (11/04/16 10:44 PM) Respiratory Rate 20 BRMIN [14-20 BRMIN] (11/04/16 10:44 PM) Peripheral Pulse 114 bpm Rate [60-100 bpm] *HI* (11/04/16 10:44 PM) Weight 63.636 kg (11/04/16 10:44 PM) Problem List Condition Effective Dates Status Health [...] Acinetobacter collected from urine 4Problem added by [employer] Expert. 5Urine (ESBL+), 08/13/2016 6MDRO, ESBL, CRE [...] CRE -- URINE, 05/27/2015 23Problem added by [employer] Expert. 24wound (RT central line), 09/25/2016 25MRSA [...] a seizure about a year ago Medications Tylenol with Codeine #3 oral tablet 1 tab, Route: PO, Drug Form: TAB, Dosing Weight 63.636, kg, ONCE, STAT, Start da te: 11/04/16 22:52:00 CDT, Stop date: 11/04/16 22:52:00 CDT Notes: Do not exceed 4gm/day of acetaminophen. (Same as: Tylenol with Codeine # 3) Start Date: 11/04/16 Stop Date: 11/04/16 Status: Completed Tylenol with Codeine #3 oral tablet 1 tab, PO, Q6H, PRN Pain, X 3 day, # 12 tab, 0 Refill(s) Start Date: 11/04/16 Stop Date: 11/07/16 Status: Ordered Zofran ODT 4 mg, 1 tab, Route: PO, Drug form: TABDIS, ONCE, Dosing Weight 63.636, kg, Prior ity: STAT, Start date: 11/04/16 22:52:00 CDT, Stop date: 11/04/16 22:52:00 CDT Notes: (Same as: Zofran ODT) Start Date: 11/04/16 Stop Date: 11/04/16 Status: Completed Zofran ODT 4 mg oral tablet, disintegrating 4 mg = 1 tab, PO, TID, Dissolve tab under tongue, X 2 day, # 6 tab, 0 Refill(s) Start Date: 11/04/16 Stop Date: 11/06/16 Status: Ordered Results No data available for this section [...] Last 365 Days Yes; Reg Smoking Cessation Color Stripper ing Yes Assessment and Plan No data available for this section
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
--- OUTSIDE RECORDS SUMMARY | 2020-03-18 10:23 | XMS REPORT | Summary of Care ---
Author Author [facility] Organization [facility] Address Unknown Phone Unavailable Encounter MOJGAN Jacques(AMARI) [id number] Date(s): 11/07/16 - 11/28/16 [facility] [address] [employer] provided by [employer] [place] [address]- Discharge Disposition: DC/TF HOME/ORG [facility] Attending Physician: Mansoor Murcia MD Admitting Physician: Joelle Mclean MD Vital Signs 1 2 3 Most recent to oldest [Reference Range]: 182.88 cm (11/09/16 10:42 AM) 182.88 cm (11/07/16 7:40 PM) 182.88 cm (11/07/16 2:22 PM) Height 97.9 DegF (11/28/16 3:57 PM) 97.6 DegF (11/28/16 4:16 AM) 98.1 DegF (11/28/16 12:32 AM) Temperature Oral [96.4-99.1 DegF] 111/69 mmHg (11/28/16 3:57 PM) 103/67 mmHg (11/28/16 12:07 PM) 108/61 mmHg (11/28/16 8:44 AM) Blood Pressure [90-140/60-90 mmHg] 18 BRMIN (11/28/16 3:57 PM) 18 BRMIN (11/28/16 12:07 PM) 18 BRMIN (11/28/16 8:44 AM) Respiratory Rate [14-20 BRMIN] 88 bpm (11/28/16 3:57 PM) 83 bpm (11/28/16 12:07 PM) 93 bpm (11/28/16 8:44 AM) Peripheral Pulse Rate [60-100 bpm] 70.455 kg (11/09/16 10:42 AM) 70.455 kg (11/07/16 7:40 PM) 70.455 kg (11/07/16 2:22 PM) Weight 21.07 m2 (11/07/16 2:22 PM) Body Mass Index Problem List Condition [...] ) Pneumonia(Confirmed) Active (Improving) Pseudomonas(Confirme 08/11/16 Active d)33, 34, 35, 36 Removal of lacerated Active fragment of liver(Confirmed) Spinal cord Active decompression injury(Confirmed) Splenomegaly(Confirm Active ed) Toe Resolved gangrene(Confirmed) Urethral Active stent(Confirmed) UTI - Urinary tract Active infection(Confirmed) Vomiting(Confirmed) Active 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 33urine, 08/11/2016 34R. Pseudomonas, a isolated from r ankle wound 08/14/2015 35R. pseudomonas aeruginosa isolated from urine 08/08/2015 36Problem added by Discern Expert. 37VRE isolated from urine 38RIGHT HIP, 06/02/2015 39URINE, 02/24/2012 40Problem added by Discern Expert. Allergies, Adverse Reactions, [...] form: TAB, ONCE, Dosing Weight 70.455, kg, Priori ty: STAT, Start date: 11/07/16 14:40:00 CDT, Stop date: 11/07/16 14:40:00 CDT Start Date: 11/07/16 Stop Date: 11/07/16 Status: Completed acetaminophen 650 mg, 2 tab, Route: PO, Drug form: TAB, Q4H, Dosing Weight 70.455, kg, PRN Maxwell n 1-3/Temp > 100.4 F, Start date: 11/07/16 19:36:00 CDT, Duration: 30 day, Stop date: 12/07/16 19:35:00 CDT Notes: Do not exceed 4 gm/day. (Same as: Tylenol) Start Date: 11/07/16 Stop Date: 11/28/16 Status: Discontinued amitriptyline 25 mg, 1 tab, Route: PO, Drug form: TAB, Bedtime, Dosing Weight 70.455, kg, Star t date: 11/09/16 21:00:00 CDT, Duration: 30 day, Stop date: 12/08/16 21:00:00 CD T Notes: (Same as: Elavil) Start Date: 11/09/16 Stop Date: 11/14/16 Status: Discontinued amitriptyline 50 mg, 2 tab, Route: PO, Drug form: TAB, Bedtime, Dosing Weight 70.455, kg, Star t date: 11/07/16 21:00:00 CDT, Duration: 30 day, Stop date: 12/06/16 21:00:00 CD T Start Date: 11/07/16 Stop Date: 11/09/16 Status: Discontinued amitriptyline 100 mg, 2 tab, Route: PO, Drug form: TAB, Bedtime, Dosing Weight 70.455, kg, Sta rt date: 11/14/16 21:00:00 CDT, Stop date: 12/13/16 21:00:00 CDT Start Date: 11/14/16 Stop Date: 11/28/16 Status: Discontinued ANES midazolam 1 mg, 1 mL, Route: IVP, Drug form: SOLN, Q5Min, Dosing Weight 70.455, kg, PRN An xiety, Start date: 11/15/16 13:51:00 CDT, Duration: 2 doses or times, Stop date: 11/16/16 0:00:00 CDT Notes: Same as: Versed Start Date: 11/15/16 Stop Date: 11/15/16 Status: Discontinued ANES ondansetron 4 mg, 2 mL, Route: IVP, Drug form: INJ, ONCE, Dosing Weight 70.455, kg, PRN Naus ea & Vomiting, Start date: 11/15/16 13:51:00 CDT Notes: (Same as: Zoan) MEDICATION WASTE Product Size: 4 mgProduct Was reinaldo: ___ mg Start Date: 11/15/16 Stop Date: 11/15/16 Status: Discontinued Ativan 1 mg, 1 tab, Route: PO, Drug form: TAB, BID, Dosing Weight 70.455, kg, PRN Withd yari, if patient has hypertension, tahchycardia or hallucinations that suggest benzo withdrawal, Start date: 11/08/16 18:11:00 CDT, Duration: 30 day, Stop date : 12/08/16... Notes: (Same as: Ativan) Start Date: 11/08/16 Stop Date: 11/19/16 Status: Discontinued Avycaz + sodium chloride 0.9% INJ 100 mL 2.5 gm, Route: IV, [id number], Dosing Weight 70.455, kg, Priority: Routine, Start da te: 11/20/16 10:00:00 CDT, Duration: 30 day, Stop date: 12/20/16 2:00:00 CDT Notes: (Same as: Avycaz)Non-formulary Start Date: 11/20/16 Stop Date: 11/27/16 Status: Discontinued Avycaz + sodium chloride 0.9% INJ 100 mL 2.5 gm, Route: IV, Q8H, Dosing Weight 70.455, kg, Priority: NOW, Start date: 06/20 21:47:00 CDT, Duration: 30 day, Stop date: 12/12/16 16:00:00 CDT Notes: (Same as: Avycaz)Non-formulary Start Date: 11/12/16 Stop Date: 11/13/16 Status: Discontinued Avycaz + sodium chloride 0.9% INJ 100 mL 2.5 gm, Route: IV, [id number], Dosing Weight 70.455, kg, Priority: Routine, Start da te: 11/13/16 12:00:00 CDT, Duration: 30 day, Stop date: 12/13/16 8:30:00 CDT Notes: (Same as: Avycaz)Non-formulary Start Date: 11/13/16 Stop Date: 11/20/16 Status: Discontinued BD Normal Saline Flush 10 mL, Route: IV, Drug Form: INJ, Q12H, Start date: 11/07/16 21:00:00 CDT, Durat ion: 30 day, Stop date: 12/07/16 9:00:00 CDT Notes: (Same as: BD Posiflush) Start Date: 11/07/16 Stop Date: 11/28/16 Status: Discontinued calcium gluconate + sodium chloride 0.9% INJ 50 mL 1,000 mg, 10 mL, Route: IVPB, ONCE, Dosing Weight 70.455, kg, Start date: 7:24:00 CDT, Stop date: 11/21/16 7:24:00 CDT Notes: WASTE: F/P - Sink; E - Municipal Trash Bin Start Date: 11/21/16 Stop Date: 11/21/16 Status: Completed carvedilol 6.25 mg, 1 tab, Route: PO, Drug form: TAB, Q12H, Dosing Weight 70.455, kg, hold for sbp<110, hr<55, Start date: 11/24/16 21:00:00 CDT, Duration: 30 day, Stop date: 12/24/16 9:00:00 CDT Notes: Give with food. (Same As: Coreg) Start Date: 11/24/16 Stop Date: 11/28/16 Status: Discontinued carvedilol 6.25 mg oral tablet 6.25 mg = 1 tab, PO, Q12H, 0 Refill(s) Start Date: 11/28/16 Status: Ordered cefepime 2 gm, Route: IV, Drug form: INJ, [id number], Dosing Weight 70.455, kg, Start date: 11/11/16 19:00:00 CDT, Duration: 30 day, Stop date: 12/11/16 7:00:00 CDT Notes: (Same as: Maxipime) MEDICATION WASTE Product Size: 2000 mgProduc t Wasted: ___ mg Start Date: 11/11/16 Stop Date: 11/12/16 Status: Discontinued CeleXA 20 mg, 1 tab, Route: PO, Drug form: TAB, Daily, Dosing Weight 70.455, kg, Start date: 11/09/16 14:00:00 CDT, Duration: 30 day, Stop date: 12/09/16 9:00:00 CDT Notes: (Same As: CeleXA) Start Date: 11/09/16 Stop Date: 11/10/16 Status: Discontinued ciprofloxacin 250 mg, 1 tab, Route: PO, Drug form: TAB, [id number], Dosing Weight 70.455, kg, Sta rt date: 11/16/16 9:00:00 CDT, Stop date: 11/29/16 21:00:00 CDT Notes: May interfere w/enteral feedings - Take 1 hr before or 2 hrs after antac ids, dairy pdt & minerals. On empty stomach. Start Date: 11/16/16 Stop Date: 11/28/16 Status: Discontinued ciprofloxacin 250 mg oral tablet 250 mg = 1 tab, PO, [id number], X 1 day, # 2 tab, 0 Refill(s) Start Date: 11/28/16 Stop Date: 11/29/16 Status: Completed Dakins Solution 0.5% topical 1 appl, Route: TOP, Daily, Drug form: SOLN, Start date: 11/14/16 9:00:00 CDT, Du ration: 30 day, Stop date: 12/13/16 9:00:00 CDT Start Date: 11/14/16 Stop Date: 11/28/16 Status: Discontinued DAPTOmycin + sodium chloride 0.9% INJ 100 mL 500 mg, Route: IVPB, [id number], Dosing Weight 70.455, kg, Start date: 11/13/16 0:0 0:00 CDT, Stop date: 12/12/16 13:00:00 CDT Notes: (Same As: Emma)Restricted use to Infectious Disease Physicians. M EDICATION WASTE Product Size: 500 mgProduct Wasted: ___ mg Start Date: 11/13/16 Stop Date: 11/16/16 Status: Discontinued DAPTOmycin + sodium chloride 0.9% INJ 100 mL 550 mg, Route: IVPB, Q12H, Dosing Weight 70.455, kg, Priority: NOW, Start date: 11/12/16 21:39:00 CDT, Duration: 30 day, Stop date: 12/12/16 21:00:00 CDT Notes: (Same As: Emma)Restricted use to Infectious Disease Physicians. M EDICATION WASTE Product Size: 500 mgProduct Wasted: ___ mg Start Date: 11/12/16 Stop Date: 11/12/16 Status: Discontinued Dilaudid 1 mg, 0.5 mL, Route: IVP, Drug form: INJ, Q6H, Dosing Weight 70.455, kg, PRN Maxwell n Score 7-10, Start date: 11/07/16 21:57:00 CDT, Duration: 30 day, Stop date: 21:56:00 CDT Notes: Same as: Dilaudid Start Date: 11/07/16 Stop Date: 11/10/16 Status: Discontinued diphenhydrAMINE 25 mg, 0.5 mL, Route: IVP, Drug form: INJ, ONCE, Dosing Weight 70.455, kg, Prior ity: STAT, Start date: 11/07/16 15:57:00 CDT, Stop date: 11/07/16 15:57:00 CDT Notes: (Same as: Benadryl) Start Date: 11/07/16 Stop Date: 11/07/16 Status: Completed Ditropan XL 10 mg, 2 tab, Route: PO, Drug form: ERTAB, Daily, Start date: 11/08/16 9:00:00 C DT, Stop date: 12/07/16 9:00:00 CDT Start Date: 11/08/16 Stop Date: 11/28/16 Status: Discontinued docusate 100 mg, Route: PO, BID, Dosing Weight 70.455, kg, PRN Constipation, Start date: 11/07/16 19:36:00 CDT, Duration: 30 day, Stop date: 12/07/16 19:35:00 CDT Start Date: 11/07/16 Stop Date: 11/07/16 Status: Discontinued docusate sodium 100 mg oral capsule 100 mg, 1 cap, Route: PO, Drug form: CAP, BID, Dosing Weight 70.455, kg, PRN Con stipation, Start date: 11/07/16 19:54:00 CDT, Duration: 30 day, Stop date: 12/07 19:53:00 CDT Notes: (Same as: Colace) (Do Not Crush) Start Date: 11/07/16 Stop Date: 11/28/16 Status: Discontinued doxycycline 100 mg, 1 tab, Route: PO, Drug form: TAB, [id number], Dosing Weight 70.455, kg, Sta rt date: 11/16/16 10:00:00 CDT, Duration: 30 day, Stop date: 12/15/16 22:00:00 C DT Notes: NO MILK/ANTACIDS/IRON Take 1 hour before or 2 hours after dairy products Start Date: 11/16/16 Stop Date: 11/24/16 Status: Discontinued doxycycline 100 mg, 1 tab, Route: PO, Drug form: TAB, [id number], Dosing Weight 70.455, kg, Sta rt date: 11/16/16 9:00:00 CDT, Stop date: 12/15/16 21:00:00 CDT Notes: NO MILK/ANTACIDS/IRON Take 1 hour before or 2 hours after dairy products Start Date: 11/16/16 Stop Date: 11/16/16 Status: Discontinued dronabinol 5 mg, 1 cap, Route: PO, Drug form: CAP, BID, Dosing Weight 70.455, kg, Priority: NOW, Start date: 11/14/16 16:49:00 CDT, Duration: 30 day, Stop date: 12/14/16 9 :00:00 CDT Notes: (Same as: Marinol) Non-Formulary Drug. Start Date: 11/14/16 Stop Date: 11/15/16 Status: Discontinued fentaNYL Route: IV, ONCE, Dosing Weight 70.455, kg, Start date: 11/11/16 15:10:00 CDT, St op date: 11/11/16 15:10:00 CDT Start Date: 11/11/16 Stop Date: 11/11/16 Status: Completed ferrous sulfate 325 mg, 1 tab, Route: PO, Drug form: ECTAB, Daily, Dosing Weight 70.455, kg, Sta rt date: 11/08/16 9:00:00 CDT, Duration: 30 day, Stop date: 12/07/16 9:00:00 CDT Notes: Give with food. "Do Not Crush" Start Date: 11/08/16 Stop Date: 11/28/16 Status: Discontinued ferrous sulfate 325 mg, Route: PO, Drug form: ECTAB, Daily, Dosing Weight 70.455, kg, Start date : 11/08/16 9:00:00 CDT, Duration: 30 day, Stop date: 12/07/16 9:00:00 CDT Start Date: 11/08/16 Stop Date: 11/07/16 Status: Discontinued fluconazole 200 mg, 100 mL, Route: IV, Drug form: INJ, ONCE, Dosing Weight 70.455, kg, Start date: 11/07/16 14:40:00 CDT, Stop date: 11/07/16 14:40:00 CDT Notes: (Same as: Diflucan) Start Date: 11/07/16 Stop Date: 11/07/16 Status: Completed folic acid 1 mg, 1 tab, Route: PO, Drug form: TAB, Daily, Dosing Weight 70.455, kg, Start d ate: 11/08/16 9:00:00 CDT, Duration: 30 day, Stop date: 12/07/16 9:00:00 CDT Notes: (Same as: Folvite) Start Date: 11/08/16 Stop Date: 11/28/16 Status: Discontinued fosfomycin 3 gm, 1 pkt, Route: PO, Drug form: PDR/REC, ONCE, Dosing Weight 70.455, kg, Star t date: 11/11/16 18:16:00 CDT, Stop date: 11/11/16 18:16:00 CDT Notes: (Same as: Monural) mix w/ 90 to 120 ml (3 to 4 ounces) of water and stir to dissolve. Do not use hot water. Take immediately after dissolving in water. Start Date: 11/11/16 Stop Date: 11/11/16 Status: Completed hydromorphone 0.5 mg, Route: IVP, ONCE, Dosing Weight 70.455, kg, Priority: STAT, Start date: 11/07/16 18:48:00 CDT, Stop date: 11/07/16 18:48:00 CDT Start Date: 11/07/16 Stop Date: 11/07/16 Status: Completed Kayexalate 30 gm, 120 mL, Route: PO, Drug form: SUSP, ONCE, Dosing Weight 70.455, kg, Start date: 11/21/16 21:14:00 CDT, Stop date: 11/21/16 21:14:00 CDT Notes: (sodium polystyrene sulfonate 15 gm/60 ml SOLITARIO) Shake well before use. (Same as: Jiexalate, SPS) Start Date: 11/21/16 Stop Date: 11/21/16 Status: Completed Kayexalate 15 gm, 60 mL, Route: PO, Drug form: SUSP, ONCE, Dosing Weight 70.455, kg, Start date: 11/27/16 15:51:00 CDT, Stop date: 11/27/16 15:51:00 CDT Notes: (sodium polystyrene sulfonate 15 gm/60 ml SOLITARIO) Shake well before use. (Same as: Jiexalate, SPS) Start Date: 11/27/16 Stop Date: 11/27/16 Status: Completed Kayexalate 30 gm, 120 mL, Route: PO, Drug form: SUSP, ONCE, Dosing Weight 70.455, kg, Prior ity: STAT, Start date: 11/21/16 7:25:00 CDT, Stop date: 11/21/16 7:25:00 CDT Notes: (sodium polystyrene sulfonate 15 gm/60 ml SOLITARIO) Shake well before use. (Same as: Juanyyexalate, SPS) Start Date: 11/21/16 Stop Date: 11/21/16 Status: Completed Kayexalate 15 gm, 60 mL, Route: PO, Drug form: SUSP, ONCE, Dosing Weight 70.455, kg, Start date: 11/27/16 10:13:00 CDT, Stop date: 11/27/16 10:13:00 CDT Notes: (sodium polystyrene sulfonate 15 gm/60 ml SOLITARIO) Shake well before use. (Same as: Kayexalate, SPS) Start Date: 11/27/16 Stop Date: 11/27/16 Status: Completed Lasix 20 mg, 2 mL, Route: IVP, Drug form: INJ, ONCE, Dosing Weight 70.455, kg, Priorit y: STAT, Start date: 11/21/16 15:03:00 CDT, Stop date: 11/21/16 15:03:00 CDT Notes: (Same as: Lasix) Start Date: 11/21/16 Stop Date: 11/21/16 Status: Completed Levsin SL 0.125 mg, 1 tab, Route: SL, Drug form: TAB, Q4H, Dosing Weight 70.455, kg, PRN B ladder Spasm, Start date: 11/09/16 11:30:00 CDT, Duration: 30 day, Stop date: 11:29:00 CDT Notes: (Same as: Levsin) Take 30 min before meal Start Date: 11/09/16 Stop Date: 11/28/16 Status: Discontinued Lexapro 10 mg, 1 tab, Route: PO, Drug form: TAB, Daily, Dosing Weight 70.455, kg, Priori ty: NOW, Start date: 11/10/16 10:13:00 CDT, Duration: 30 day, Stop date: 7 9:00:00 CDT Notes: (Same as: Lexapro) Start Date: 11/10/16 Stop Date: 11/11/16 Status: Discontinued lidocaine 1% 50 mg, 5 mL, Route: INTRADERM, Drug Form: INJ, Dosing Weight 70.455, kg, ONCALL, Start date: 11/09/16 10:00:00 CDT, Duration: 1 day, Stop date: 11/10/16 9:59:00 CDT Notes: (Same as: Xylocaine) Start Date: 11/09/16 Stop Date: 11/28/16 Status: Discontinued lidocaine 1% 50 mg, 5 mL, Route: INTRADERM, Drug Form: INJ, Dosing Weight 70.455, kg, ONCALL, Start date: 11/09/16 16:00:00 CDT, Duration: 1 day, Stop date: 11/10/16 15:59:00 CDT Notes: (Same as: Xylocaine) Start Date: 11/09/16 Stop Date: 11/28/16 Status: Discontinued lisinopril 5 mg, 1 tab, Route: PO, Drug form: TAB, Daily, Dosing Weight 70.455, kg, HOLD FO R SBP<110, Start date: 11/21/16 9:00:00 CDT, Duration: 30 day, Stop date: 12/20/16 9:00:00 CDT Notes: (Same as: Simona Taylorril) Start Date: 11/21/16 Stop Date: 11/21/16 Status: Discontinued Lovenox 40 mg, 0.4 mL, Route: SUB-Q, Drug form: INJ, [id number], Dosing Weight 70.455, kg, Start date: 11/07/16 20:00:00 CDT, Duration: 30 day, Stop date: 12/06/16 10:00: 00 CDT Notes: (Same as: Lovenox) Start Date: 11/07/16 Stop Date: 11/28/16 Status: Discontinued magnesium oxide 800 mg, 2 tab, Route: PO, Drug form: TAB, ONCE, Dosing Weight 70.455, kg, Start date: 11/28/16 7:25:00 CDT, Stop date: 11/28/16 7:25:00 CDT Notes: (Same as: Mag-Ox 400)Magnesium oxide [id number] elemental magnesiumDose= 800 mg magnesium oxide ( 484 mg elemental magnesium) Start Date: 11/28/16 Stop Date: 11/28/16 Status: Completed magnesium sulfate 2 gm, Route: IVPB, Drug form: INJ, Q2H, Dosing Weight 70.455, kg, Total dose = 2 gm, Start date: 11/18/16 20:00:00 CDT, Duration: 2 doses or times, Stop date: 0 11/18/16 22:00:00 CDT Start Date: 11/18/16 Stop Date: 11/18/16 Status: Discontinued magnesium sulfate 1 gm, 100 mL, Route: IVPB, Drug form: INJ, Q2H, Dosing Weight 70.455, kg, Start date: 11/18/16 8:00:00 CDT, Duration: 2 doses or times, Stop date: 11/18/16 10:0 0:00 CDT Notes: WASTE: F/P - Sink; E - Municipal Trash Bin Start Date: 11/18/16 Stop Date: 11/18/16 Status: Completed magnesium sulfate 2 gm in Water 50 ml 2 gm, 50 mL, Route: IVPB, Drug form: INJ, ONCE, Dosing Weight 70.455, kg, Start date: 11/09/16 10:34:00 CDT, Duration: 2 hr, Stop date: 11/09/16 10:34:00 CDT Notes: WASTE: F/P - Sink; E - Municipal Trash Bin Start Date: 11/09/16 Stop Date: 11/09/16 Status: Completed magnesium sulfate 2 gm in Water 50 ml 2 gm, 50 mL, Route: IVPB, Drug form: INJ, ONCE, Dosing Weight 70.455, kg, Start date: 11/08/16 11:35:00 CDT, Duration: 2 hr, Stop date: 11/08/16 11:35:00 CDT Notes: WASTE: F/P - Sink; E - Municipal Trash Bin Start Date: 11/08/16 Stop Date: 11/08/16 Status: Completed melatonin 3 mg oral tablet 3 mg, 1 tab, Route: PO, Drug Form: TAB, Dosing Weight 70.455, kg, Bedtime, PRN a s needed for insomnia, Start date: 11/13/16 12:26:00 CDT, Duration: 30 day, Stop date: 12/13/16 12:25:00 CDT Notes: (Same as: Melatonin) Start Date: 11/13/16 Stop Date: 11/28/16 Status: Discontinued meropenem 500 mg, Route: IVPB, Drug form: PDR/INJ, ABXQ6H, Dosing Weight 70.455, kg, CrCL > = 50ml/min, Extended infusion, infuse over 3 hours, Start date: 11/08/16 16:00:00 CDT, Duration: 30 day, Stop date: 12/08/16 10:00:00 CDT Notes: Same as Merrem MEDICATION WASTE Product Size: 500 mgProduct Wast ed: ___ mg Start Date: 11/08/16 Stop Date: 11/11/16 Status: Discontinued meropenem 1,000 mg, Route: IVPB, Drug form: PDR/INJ, ONCE, Dosing Weight 70.455, kg, Prior ity: STAT, Start date: 11/07/16 14:39:00 CDT, Stop date: 11/07/16 14:39:00 CDT Start Date: 11/07/16 Stop Date: 11/07/16 Status: Completed meropenem 500 mg, Route: IVPB, Drug form: PDR/INJ, ABXQ6H, Dosing Weight 70.455, kg, CrCL > = 50ml/min, Extended infusion, infuse over 3 hours, Start date: 11/07/16 20:00:00 CDT, Duration: 30 day, Stop date: 12/07/16 14:00:00 CDT Start Date: 11/07/16 Stop Date: 11/07/16 Status: Discontinued meropenem 500 mg, Route: IVPB, Drug form: PDR/INJ, Q8H, Dosing Weight 70.455, kg, CrCL > = 50ml/min, Extended infusion, infuse over 3 hours, Start date: 11/08/16 0:00:00 CDT, Duration: 30 day, Stop date: 12/07/16 16:00:00 CDT Notes: Same as Merrem MEDICATION WASTE Product Size: 500 mgProduct Wast ed: ___ mg Start Date: 11/08/16 Stop Date: 11/08/16 Status: Discontinued metoprolol extended release 25 mg, 1 tab, Route: PO, Drug form: ERTAB, Daily, hold for sbp<110, hr<55, Start date: 11/21/16 9:00:00 CDT, Duration: 30 day, Stop date: 12/20/16 9:00:00 CDT Notes: (Same as: Toprol XL) Do Not Crush Start Date: 11/21/16 Stop Date: 11/24/16 Status: Discontinued metoprolol tartrate 25 mg, 1 tab, Route: PO, Drug form: TAB, Q12H, Dosing Weight 70.455, kg, Start d ate: 11/07/16 21:00:00 CDT, Duration: 30 day, Stop date: 12/07/16 9:00:00 CDT Start Date: 11/07/16 Stop Date: 11/20/16 Status: Discontinued metoprolol tartrate 25 mg, Route: PO, Drug form: TAB, ONCE, Dosing Weight 70.455, kg, Start date: 18:10:00 CDT, Stop date: 11/07/16 18:10:00 CDT Start Date: 11/07/16 Stop Date: 11/07/16 Status: Completed metroNIDAZOLE 500 mg, 1 tab, Route: PO, Drug form: TAB, Q8H, Dosing Weight 70.455, kg, Priorit y: NOW, Start date: 11/12/16 21:47:00 CDT, Stop date: 11/26/16 16:00:00 CDT Notes: (Same as: Flagyl) Take with food/ avoid alcohol Start Date: 11/12/16 Stop Date: 11/20/16 Status: Discontinued MiraLax 17 gm, 1 pkt, Route: PO, Drug form: PWDR, Daily, Dosing Weight 70.455, kg, Start date: 11/10/16 16:30:00 CDT, Duration: 30 day, Stop date: 12/10/16 9:00:00 CDT Notes: Dissolve in 8 oz of water or juice.(Same as: Miralax) Start Date: 11/10/16 Stop Date: 11/20/16 Status: Discontinued MiraLax 17 gm, 1 pkt, Route: PO, Drug form: PWDR, Daily, Dosing Weight 70.455, kg, Start date: 11/27/16 11:00:00 CDT, Duration: 30 day, Stop date: 12/27/16 9:00:00 CDT Notes: Dissolve in 8 oz of water or juice.(Same as: Miralax) Start Date: 11/27/16 Stop Date: 11/28/16 Status: Discontinued morphine Sulfate 4 mg, Route: IVP, ONCE, Dosing Weight 70.455, kg, Priority: STAT, Start date: 15:26:00 CDT, Stop date: 11/07/16 15:26:00 CDT Start Date: 11/07/16 Stop Date: 11/07/16 Status: Completed morphine Sulfate 2 mg, 1 mL, Route: IVP, Drug form: INJ, Q4H, Dosing Weight 70.455, kg, PRN Pain Score 7-10, Start date: 11/07/16 19:36:00 CDT, Duration: 30 day, Stop date: 01/18 19:35:00 CDT Notes: (Same as:MORPhine Sulfate) Start Date: 11/07/16 Stop Date: 11/10/16 Status: Discontinued [place] 10/325 oral tablet 1 tab, Route: PO, Drug Form: TAB, Dosing Weight 70.455, kg, Q4H, PRN Pain Score 6-10, Start date: 11/13/16 12:28:00 CDT, Duration: 30 day, Stop date: 12/13/16 1 2:27:00 CDT Notes: Do not exceed 4gm/day of acetaminophen. (Same as: [place] 325/10) Start Date: 11/13/16 Stop Date: 11/28/16 Status: Discontinued [place] 5/325 oral tablet 1 tab, Route: PO, Drug Form: TAB, Dosing Weight 70.455, kg, Q6H, PRN Pain Score 6-10, Start date: 11/10/16 10:10:00 CDT, Duration: 30 day, Stop date: 12/10/16 1 0:09:00 CDT Notes: (Same as: [place] 325/5) Do not exceed 4gm/day of acetaminophen. Start Date: 11/10/16 Stop Date: 11/12/16 Status: Discontinued [place] 7.5/325 oral tablet 1 tab, Route: PO, Drug Form: TAB, Dosing Weight 70.455, kg, Q4H, PRN Pain Score 4-6, Start date: 11/12/16 12:45:00 CDT, Duration: 30 day, Stop date: 12/12/16 12 :44:00 CDT Notes: Same as [place] 325-7.5mg Do not exceed 4gm/day of acetaminophen. Start Date: 11/12/16 Stop Date: 11/28/16 Status: Discontinued NS (Bolus) IV 1,000 mL, 1,000 ml/hr, Infuse Over: 1 hr, Route: IV, 1,000, Drug form: INJ, ONCE , Priority: STAT, Dosing Weight 70.455 kg, Start date: 11/07/16 21:57:00 CDT, Du ration: 1 doses or times, Stop date: 11/07/16 21:57:00 CDT Start Date: 11/07/16 Stop Date: 11/07/16 Status: Completed ondansetron 4 mg, Route: IVP, Drug form: INJ, ONCE, Dosing Weight 70.455, kg, Priority: STAT , Start date: 11/07/16 15:26:00 CDT, Stop date: 11/07/16 15:26:00 CDT Start Date: 11/07/16 Stop Date: 11/07/16 Status: Completed ondansetron 4 mg, 2 mL, Route: IVP, Drug form: INJ, Q6H, Dosing Weight 70.455, kg, PRN Nause a & Vomiting, Start date: 11/07/16 19:36:00 CDT, Duration: 30 day, Stop date: 12/07/16 19:35:00 CDT Notes: (Same as: Klaus) MEDICATION WASTE Product Size: 4 mgProduct Was reinaldo: ___ mg Start Date: 11/07/16 Stop Date: 11/28/16 Status: Discontinued pantoprazole 40 mg, 1 tab, Route: PO, Drug form: ECTAB, Before Dinner, Dosing Weight 70.455, kg, Start date: 11/08/16 16:30:00 CDT, Duration: 30 day, Stop date: 12/07/16 16: 30:00 CDT Notes: Tablet should not be chewed or crushed.(Same as: Protonix) Start Date: 11/08/16 Stop Date: 11/07/16 Status: Deleted pantoprazole 40 mg, 1 tab, Route: PO, Drug form: ECTAB, Before Dinner, Dosing Weight 70.455, kg, Start date: 11/08/16 16:30:00 CDT, Duration: 30 day, Stop date: 12/07/16 16: 30:00 CDT Start Date: 11/08/16 Stop Date: 11/28/16 Status: Discontinued polyethylene glycol 3350 PO, Daily, 0 Refill(s) Start Date: 11/28/16 Status: Ordered pregabalin 150 mg, 2 cap, Route: PO, Drug form: CAP, BID, Dosing Weight 70.455, kg, Start d ate: 11/08/16 9:00:00 CDT, Duration: 30 day, Stop date: 12/07/16 17:00:00 CDT Notes: (Same as: Lyrica) Start Date: 11/08/16 Stop Date: 11/28/16 Status: Discontinued Robaxin 1,000 mg, 2 tab, Route: PO, Drug form: TAB, Q8H-06, Start date: 11/16/16 14:00:0 0 CDT, Duration: 30 day, Stop date: 12/16/16 6:00:00 CDT Notes: (Same as:Robaxin) Start Date: 11/16/16 Stop Date: 11/28/16 Status: Discontinued Saline Flush 0.9% 10 mL, Route: IVP, Drug Form: INJ, Dosing Weight 70.455, kg, PRN, PRN Line Flush , Start date: 11/09/16 9:52:00 CDT, Duration: 30 day, Stop date: 12/09/16 9:51:0 0 CDT Notes: (Same as: BD Posiflush) Start Date: 11/09/16 Stop Date: 11/28/16 Status: Discontinued Saline Flush 0.9% 10 mL, Route: IVP, Drug Form: INJ, Dosing Weight 70.455, kg, Q8H, Start date: 16:00:00 CDT, Duration: 30 day, Stop date: 12/09/16 8:00:00 CDT Notes: (Same as: BD Posiflush) Start Date: 11/09/16 Stop Date: 11/28/16 Status: Discontinued Saline Flush 0.9% 10 mL, Route: IVP, Drug Form: INJ, Dosing Weight 70.455, kg, Q8H, Start date: 16:00:00 CDT, Duration: 30 day, Stop date: 12/09/16 8:00:00 CDT Notes: (Same as: BD Posiflush) Start Date: 11/09/16 Stop Date: 11/28/16 Status: Discontinued Saline Flush 0.9% 10 mL, Route: IVP, Drug Form: INJ, Dosing Weight 70.455, kg, PRN, PRN Line Flush , Start date: 11/09/16 15:24:00 CDT, Duration: 30 day, Stop date: 12/09/16 15:23 :00 CDT Notes: (Same as: BD Posiflush) Start Date: 11/09/16 Stop Date: 11/28/16 Status: Discontinued Saline Flush 0.9% 10 mL, Route: IVP, Drug Form: INJ, Dosing Weight 70.455, kg, PRN, PRN Line Flush , Start date: 11/07/16 14:34:00 CDT, Duration: 30 day, Stop date: 12/07/16 14:33 :00 CDT Notes: (Same as: BD Posiflush) Start Date: 11/07/16 Stop Date: 11/28/16 Status: Discontinued Santyl 1 appl, Route: TOP, Daily, Drug form: OINT, Start date: 11/08/16 9:00:00 CDT, Du ration: 30 day, Stop date: 12/07/16 9:00:00 CDT Notes: (Same As: Santyl) Start Date: 11/08/16 Stop Date: 11/13/16 Status: Discontinued sertraline 75 mg, 3 tab, Route: PO, Drug form: TAB, Daily, Dosing Weight 70.455, kg, Start date: 11/12/16 9:00:00 CDT, Stop date: 12/11/16 9:00:00 CDT Notes: (Same as: Zoloft) Start Date: 11/12/16 Stop Date: 11/28/16 Status: Discontinued Sodium Chloride 0.9% (Bolus) IV 500 mL, 500 ml/hr, Infuse Over: 1 hr, Route: IV, 500, Drug form: INJ, ONCE, Dosi ng Weight 70.455 kg, Start date: 11/27/16 10:12:00 CDT, Stop date: 11/27/16 10:1 2:00 CDT Start Date: 11/27/16 Stop Date: 11/27/16 Status: Completed sodium chloride 0.9% 1000 ml INJ 1,000 mL 1,000 mL, Rate: 75 ml/hr, Infuse over: 13.3 hr, Route: IV, Dosing Weight 70.455 kg, Total Volume: 1,000, Start date: 11/19/16 10:15:00 CDT, Duration: 1 day, Sto p date: 11/20/16 10:14:00 CDT Start Date: 11/19/16 Stop Date: 11/20/16 Status: Completed sodium chloride 0.9% 1000 ml INJ 1,000 mL 1,000 mL, Rate: 125 ml/hr, Infuse over: 8 hr, Route: IV, Dosing Weight 70.455 kg , Total Volume: 1,000, Start date: 11/21/16 18:37:00 CDT, Duration: 30 day, Stop date: 12/21/16 18:36:00 CDT Start Date: 11/21/16 Stop Date: 11/23/16 Status: Discontinued sodium chloride 0.9% 1000 ml INJ 1,000 mL 1,000 mL, Rate: 100 ml/hr, Infuse over: 10 hr, Route: IV, Dosing Weight 70.455 k g, Total Volume: 1,000, Start date: 11/07/16 19:50:00 CDT, Duration: 30 day, Sto p date: 12/07/16 19:49:00 CDT Start Date: 11/07/16 Stop Date: 11/08/16 Status: Discontinued sodium chloride 0.9% 1000 ml INJ 1,000 mL 1,000 mL, Rate: 50 ml/hr, Infuse over: 20 hr, Route: IV, Dosing Weight 70.455 kg , Total Volume: 1,000, Start date: 11/27/16 15:49:00 CDT, Duration: 30 day, Stop date: 12/27/16 15:48:00 CDT Start Date: 11/27/16 Stop Date: 11/28/16 Status: Discontinued sodium chloride 0.9% 1000 ml INJ 1,000 mL 1,000 mL, Rate: 100 ml/hr, Infuse over: 10 hr, Route: IV, Dosing Weight 70.455 k g, Total Volume: 1,000, Start date: 11/24/16 11:22:00 CDT, Duration: 30 day, Sto p date: 12/24/16 11:21:00 CDT Start Date: 11/24/16 Stop Date: 11/24/16 Status: Discontinued sodium chloride 0.9% 1000 ml INJ 1,000 mL 1,000 mL, Rate: 75 ml/hr, Infuse over: 13.3 hr, Route: IV, Dosing Weight 70.455 kg, Total Volume: 1,000, Start date: 11/18/16 7:19:00 CDT, Duration: 30 day, Sto p date: 12/18/16 7:18:00 CDT Start Date: 11/18/16 Stop Date: 11/19/16 Status: Discontinued sodium chloride 0.9% 1000 ml INJ 1,000 mL 1,000 mL, Rate: 100 ml/hr, Infuse over: 10 hr, Route: IV, Dosing Weight 70.455 k g, Total Volume: 1,000, Start date: 11/21/16 7:24:00 CDT, Duration: 30 day, Stop date: 12/21/16 7:23:00 CDT Start Date: 11/21/16 Stop Date: 11/21/16 Status: Discontinued sodium chloride 0.9% 1000 ml INJ 1,000 mL 1,000 mL, Rate: 80 ml/hr, Infuse over: 12.5 hr, Route: IV, Dosing Weight 70.455 kg, Total Volume: 1,000, Start date: 11/23/16 9:51:00 CDT, Duration: 30 day, Sto p date: 12/23/16 9:50:00 CDT Start Date: 11/23/16 Stop Date: 11/24/16 Status: Discontinued sodium chloride 0.9% INJ 250 mL 250 mL, Rate: teacher physically impaired for use with blood product administration, Dosing Weight 7 0.455, kg, Route: IV, Total Volume: 250, Start Date: 11/09/16 10:39:00 CDT, Dura tion: 1 day, Stop date: 11/10/16 10:38:00 CDT, Replace Every: 24 hr Start Date: 11/09/16 Stop Date: 11/10/16 Status: Completed Sodium Chloride 0.9% IV 2,000 mL, 1000 ml/hr, Infuse Over: 2 hr, Route: IVPB, 2,000, Drug form: INJ, ONC E, Priority: STAT, Dosing Weight 70.455 kg, Start date: 11/07/16 14:34:00 CDT, D uration: 1 doses or times, Stop date: 11/07/16 14:34:00 CDT Start Date: 11/07/16 Stop Date: 11/07/16 Status: Completed tizanidine 4 mg, 1 tab, Route: PO, Drug form: TAB, TID, Dosing Weight 70.455, kg, Start river e: 11/08/16 9:00:00 CDT, Duration: 30 day, Stop date: 12/07/16 17:00:00 CDT Notes: (Same As: Zanaflex) Start Date: 11/08/16 Stop Date: 11/16/16 Status: Voided With Results tolterodine 4 mg, Route: PO, Drug form: CAP, Daily, Dosing Weight 70.455, kg, Start date: 9:00:00 CDT, Duration: 30 day, Stop date: 12/07/16 9:00:00 CDT Start Date: 11/08/16 Stop Date: 11/07/16 Status: Discontinued Tylenol with Codeine #3 oral tablet 1 tab, Route: PO, Drug Form: TAB, Dosing Weight 70.455, kg, Q6H, PRN Pain Score 1-3, Start date: 11/07/16 19:53:00 CDT, Duration: 30 day, Stop date: 12/07/16 19 :52:00 CDT Notes: Do not exceed 4gm/day of acetaminophen. (Same as: Tylenol with Codeine # 3) Start Date: 11/07/16 Stop Date: 11/10/16 Status: Discontinued vancomycin 125 mg, Route: PO, Drug form: CAP, ABXQ6H, Dosing Weight 70.455, kg, Start date: 11/20/16 15:00:00 CDT, Duration: 30 day, Stop date: 12/20/16 9:00:00 CDT Start Date: 11/20/16 Stop Date: 11/20/16 Status: Deleted vancomycin 125 mg, 2.5 mL, Route: PO, Drug form: SOLN, ABXQ6H, Dosing Weight 70.455, kg, St art date: 11/18/16 9:00:00 CDT, Duration: 30 day, Stop date: 12/18/16 3:00:00 CD T Notes: TIME CRITICAL MEDICATIONConcentration = 50 mg/ml. Keep in refrigerator. For oral use only. Vancomycin 1gm vial are used and reconstituted with 20ml of sterile water for a concentration of 50mg/ml. Draw up in ken po syringes. DO NOT USE IV SYRINGES. Start Date: 11/18/16 Stop Date: 11/28/16 Status: Discontinued vancomycin 500 mg, Route: IV, Drug form: PDR/INJ, [id number], Dosing Weight 70.455, kg, Start date: 11/10/16 10:00:00 CDT, Duration: 30 day, Stop date: 12/09/16 14:00:00 CDT Notes: TIME CRITICAL MEDICATION(Same As: Vancocin) Start Date: 11/10/16 Stop Date: 11/11/16 Status: Discontinued vancomycin + sodium chloride 0.9% 250 mL INJ (for IV set) 250 mL 750 mg, Route: IVPB, [id number], Start date: 11/08/16 4:00:00 CDT, Duration: 30 day , Stop date: 12/07/16 16:00:00 CDT Notes: TIME CRITICAL MEDICATION(Same As: Vancocin)Infusion rate< 1000 mg: infuse over 1 [id number] - 1500 mg: infuse over 1.5 [id number] - 2000 mg: infuse over 2 hours> 2001 mg: infuse over 2.5 hours MEDICATION WASTE Product Size: 1000 mgProduct Wasted: ___ mg Start Date: 11/08/16 Stop Date: 11/09/16 Status: Discontinued vancomycin + sodium chloride 0.9% 500 ml INJ 500 mL 2,000 mg, Route: IVPB, ONCE, Dosing Weight 70.455, kg, Priority: STAT, Start river e: 11/07/16 14:39:00 CDT, Stop date: 11/07/16 14:39:00 CDT Notes: TIME CRITICAL MEDICATION(Same As: Vancocin)Infusion rate< 1000 mg: infuse over 1 [id number] - 1500 mg: infuse over 1.5 hoursVancomycin FOR IV SET [id number] - 2000 mg: infuse over 2 hours> 2001 mg: infuse over 2.5 hours MEDICATION WASTE Product Size: 1000 mgProduct Wasted: _0__ mg Start Date: 11/07/16 Stop Date: 11/07/16 Status: Completed vancomycin 250 mg/5 mL oral solution 125 mg = 2.5 mL, PO, ABXQ6H, X 2 day, # 20 mL, 0 Refill(s) Start Date: 11/28/16 Stop Date: 11/30/16 Status: Completed Visipaque 320mg/ml 86 mL, Route: IVP, Drug Form: SOLN, Dosing Weight 70.455, kg, ONCALL, STAT, Star t date: 11/07/16 15:59:00 CDT, Duration: 1 doses or times, Dose = 2.2ml/kg, Max dose = 100ml -- "To be infused by Radiology Staff ONLY" Start Date: 11/07/16 Stop Date: 11/07/16 Status: Completed Vitamin B12 1,000 microgram, 1 tab, Route: PO, Drug form: TAB, Daily, Dosing Weight 70.455, kg, Start date: 11/27/16 11:00:00 CDT, Duration: 30 day, Stop date: 12/27/16 9:0 0:00 CDT Notes: (Same As: Vitamin B-12) Start Date: 11/27/16 Stop Date: 11/28/16 Status: Discontinued Vitamin C 500 mg, 1 tab, Route: PO, Drug form: TAB, Daily, Dosing Weight 70.455, kg, Start date: 11/27/16 11:00:00 CDT, Duration: 30 day, Stop date: 12/27/16 9:00:00 CDT Notes: (Same as: Vitamin C) Start Date: 11/27/16 Stop Date: 11/28/16 Status: Discontinued Xanax 0.5 mg oral tablet 1 mg, 2 tab, Route: PO, Drug form: TAB, BID, Dosing Weight 70.455, kg, PRN Anxie ty, Start date: 11/15/16 14:58:00 CDT, Stop date: 12/15/16 14:57:00 CDT Notes: With food or milk(Same as: Xanax) Start Date: 11/15/16 Stop Date: 11/19/16 Status: Discontinued Xanax 2 mg oral tablet 2 mg, 4 tab, Route: PO, Drug form: TAB, BID, Dosing Weight 70.455, kg, Start river e: 11/08/16 9:00:00 CDT, Duration: 30 day, Stop date: 12/07/16 17:00:00 CDT Notes: With food or milk(Same as: Xanax) Start Date: 11/08/16 Stop Date: 11/08/16 Status: Discontinued zinc oxide topical 20% ointment Route: TOP, Daily, Drug form: OINT, Start date: 11/17/16 9:00:00 CDT, Duration: 30 day, Stop date: 12/16/16 9:00:00 CDT Start Date: 11/17/16 Stop Date: 11/28/16 Status: Discontinued Results BLOOD BANK RESULTS 1 2 3 Most recent to oldest [Reference Range]: A POS *Unknown* (11/09/16 11:00 AM) ABO/Rh Negative (11/09/16 11:00 AM) Antibody Scrn Product available (11/09/16 10:39 AM) RBC product ELECTROLYTES 1 2 3 Most recent to oldest [Reference Range]: 138 mEq/L (11/28/16 2:53 AM) 138 mEq/L (11/27/16 2:49 AM) 142 mEq/L (11/26/16 3:46 AM) Sodium Lvl [135-145 mEq/L] 4.8 mEq/L (11/28/16 2:53 AM) 5.4 mEq/L *HI* (11/27/16 2:49 AM) 5.1 mEq/L (11/26/16 3:46 AM) Potassium Lvl [3.5-5.1 mEq/L] 109 mEq/L (11/28/16 2:53 AM) 108 mEq/L (11/27/16 2:49 AM) 109 mEq/L (11/26/16 3:46 AM) Chloride Lvl [95-109 mEq/L] 19 mEq/L *LOW* (11/28/16 2:53 AM) 19 mEq/L *LOW* (11/27/16 2:49 AM) 23 mEq/L *LOW* (11/26/16 3:46 AM) CO2 [24-32 mEq/L] 14.8 mEq/L (11/28/16 2:53 AM) 16.4 mEq/L (11/27/16 2:49 AM) 15.1 mEq/L (11/26/16 3:46 AM) AGAP [10.0-20.0 mEq/L] CHEM PANEL 1 2 3 Most recent to oldest [Reference Range]: 1.67 mg/dL *HI* (11/28/16 2:53 AM) 1.74 mg/dL *HI* (11/27/16 2:49 AM) 1.50 mg/dL *HI* (11/26/16 3:46 AM) Creatinine Lvl [0.50-1.40 mg/dL] 54 mL/min/1.73m2 1 *NA* (11/28/16 2:53 AM) 51 mL/min/1.73m2 2 *NA* (11/27/16 2:49 AM) 61 mL/min/1.73m2 3 *NA* (11/26/16 3:46 AM) eGFR 39 mg/dL *HI* (11/28/16 2:53 AM) 38 mg/dL *HI* (11/27/16 2:49 AM) 35 mg/dL *HI* (11/26/16 3:46 AM) BUN [7-22 mg/dL] 23 (11/28/16 2:53 AM) 10 (11/07/16 2:53 PM) B/C Ratio [6-25] 92 mg/dL (11/28/16 2:53 AM) 82 mg/dL (11/27/16 2:49 AM) 94 mg/dL (11/26/16 3:46 AM) Glucose Lvl [70-99 mg/dL] 8.5 g/dL *HI* (11/28/16 2:53 AM) 7.9 g/dL (11/13/16 5:54 AM) 10.5 g/dL *HI* (11/07/16 2:53 PM) Total Protein [6.4-8.4 g/dL] 2.9 g/dL *LOW* (11/28/16 2:53 AM) 2.3 g/dL *LOW* (11/13/16 5:54 AM) 2.9 g/dL *LOW* (11/07/16 2:53 PM) Albumin Lvl [3.5-5.0 g/dL] 5.6 g/dL *HI* (11/28/16 2:53 AM) 5.6 g/dL *HI* (11/13/16 5:54 AM) 7.6 g/dL *HI* (11/07/16 2:53 PM) Globulin [2.7-4.2 g/dL] 0.5 *LOW* (11/28/16 2:53 AM) 0.4 *LOW* (11/13/16 5:54 AM) 0.4 *LOW* (11/07/16 2:53 PM) A/G Ratio [0.7-1.6] 9.3 mg/dL (11/28/16 2:53 AM) 9.6 mg/dL (11/27/16 2:49 AM) 9.0 mg/dL (11/26/16 3:46 AM) Calcium Lvl [8.5-10.5 mg/dL] 4.0 mg/dL (11/28/16 2:53 AM) 3.6 mg/dL (11/19/16 5:39 AM) 2.6 mg/dL (11/18/16 2:55 AM) Phosphorus [2.5-4.5 mg/dL] 1.5 mg/dL *LOW* (11/28/16 2:53 AM) 1.8 mg/dL (11/19/16 5:39 AM) 1.5 mg/dL *LOW* (11/18/16 12:22 PM) Magnesium Lvl [1.8-2.4 mg/dL] 96 unit/L *HI* (11/28/16 2:53 AM) 13 unit/L (11/13/16 5:54 AM) 10 unit/L (11/07/16 2:53 PM) ALT [0-65 unit/L] 86 unit/L *HI* (11/28/16 2:53 AM) 11 unit/L (11/13/16 5:54 AM) 13 unit/L (11/07/16 2:53 PM) AST [0-37 unit/L] 142 unit/L *HI* (11/28/16 2:53 AM) 109 unit/L (11/13/16 5:54 AM) 134 unit/L (11/07/16 2:53 PM) Alk Phos [39-136 unit/L] 0.4 mg/dL (11/28/16 2:53 AM) 0.2 mg/dL (11/13/16 5:54 AM) 0.2 mg/dL (11/07/16 2:53 PM) Bili Total [0.2-1.3 mg/dL] 0.1 mg/dL (11/13/16 5:54 AM) Bili Direct [0.0-0.3 mg/dL] 0.1 mg/dL (11/13/16 5:54 AM) Bili Indirect [0.0-1.0 mg/dL] 0.7 mMol/L (11/07/16 6:55 PM) 0.4 mMol/L *LOW* (11/07/16 5:50 PM) Lactic Acid Lvl [0.5-2.2 mMol/L] 3.1 mmol/L *HI* (11/07/16 3:10 PM) Lactic Acid WB [0.5-2.2 mmol/L] 0.47 ng/mL *HI* (11/07/16 2:53 PM) Procalcitonin Lvl [0.00-0.10 ng/mL] 1Result Comment: [...] 3 Most recent to oldest [Reference Range]: 41 unit/L (11/27/16 4:21 PM) 25 unit/L (11/13/16 5:54 AM) 72 unit/L (11/07/16 2:53 PM) Total CK [12-191 unit/L] 0.5 ng/mL (11/07/16 2:53 PM) CK MB [0.5-3.6 ng/mL] 0.7 (11/07/16 2:53 PM) CK MB Index [0.0-2.5] <0.02 ng/mL (11/07/16 2:53 PM) Troponin-I [0.00-0.40 ng/mL] ANEMIA STUDY 1 2 3 Most recent to oldest [Reference Range]: 12 ug/dl *LOW* (11/08/16 9:10 AM) Iron [45-160 ug/dl] 442 ng/mL *HI* (11/28/16 2:53 AM) 295 ng/mL *HI* (11/08/16 9:10 AM) Ferritin Lvl [22-275 ng/mL] 7 % *LOW* (11/08/16 9:10 AM) % Satur Fe [12-57 %] 151 ug/dl (11/08/16 9:10 AM) UIBC [110-370 ug/dl] 163 ug/dl *LOW* (11/08/16 9:10 AM) TIBC [228-428 ug/dl] TOXICOLOGY 1 2 3 Most recent to oldest [Reference Range]: 0330 *NA* (11/09/16 4:28 AM) Vanco Tr TND 6.4 ug/ml *NA* (11/13/16 5:54 AM) 13.0 ug/ml *NA* (11/10/16 8:12 AM) Vanco Lvl 33.6 ug/ml *NA* (11/09/16 4:28 AM) Vanco Tr URINE CHEM 1 2 3 Most recent to oldest [Reference Range]: 35.10 mg/dL *NA* (11/27/16 3:22 PM) 42.90 mg/dL *NA* (11/21/16 8:50 AM) 42.70 mg/dL *NA* (11/21/16 8:50 AM) U Creatinine 122.2 mg/dL *NA* (11/27/16 3:22 PM) 97.5 mg/dL *NA* (11/21/16 8:50 AM) U Protein 3.5 *NA* (11/27/16 3:22 PM) 2.3 *NA* (11/21/16 8:50 AM) U Prot/Creat 106 mEq/L *NA* (11/27/16 3:22 PM) 110 mEq/L *NA* (11/21/16 8:50 AM) U Sodium 32.7 mEq/L *NA* (11/27/16 3:22 PM) U Potassium 115 mEq/L *NA* (11/27/16 3:22 PM) U Chloride 419 mOsm/kg (11/27/16 3:22 PM) 442 mOsm/kg (11/21/16 8:50 AM) U Osmolality [300-800 mOsm/kg] None Seen (11/27/16 3:22 PM) U Eos [None Seen] URINE AND STOOL 1 2 3 Most recent to oldest [Reference Range]: Slight *ABN* (11/21/16 8:50 AM) Cloudy *ABN* (11/07/16 3:53 PM) UA Turbidity [Clear] Yellow *NA* (11/21/16 8:50 AM) Yellow *NA* (11/07/16 3:53 PM) UA Color [Yellow] 5.5 (11/21/16 8:50 AM) UA pH [5.0-8.0] 6.5 (11/07/16 3:53 PM) UA pH [5.0-8.0] 1.012 (11/21/16 8:50 AM) UA Spec Grav [<=1.030] 1.020 (11/07/16 3:53 PM) UA Spec Grav [<=1.030] Negative mg/dL *NA* (11/21/16 8:50 AM) UA Glucose [Negative mg/dL] Negative (11/07/16 3:53 PM) UA Glucose [Negative] Moderate *ABN* (11/21/16 8:50 AM) Large *ABN* (11/07/16 3:53 PM) UA Blood [Negative] Negative mg/dL *NA* (11/21/16 8:50 AM) UA Ketones [Negative mg/dL] Negative *NA* (11/07/16 3:53 PM) UA Ketones [Negative] 70 mg/dL *ABN* (11/21/16 8:50 AM) 100 mg/dL *ABN* (11/07/16 3:53 PM) UA Protein [Negative mg/dL] <=1.0 mg/dL *NA* (11/21/16 8:50 AM) UA Urobilinogen [0.1-1.0 mg/dL] 0.2 EU/dL (11/07/16 3:53 PM) UA Urobilinogen [0.1-1.0 EU/dL] Negative *NA* (11/21/16 8:50 AM) Negative *NA* (11/07/16 3:53 PM) UA Bili [Negative] Large *ABN* (11/21/16 8:50 AM) Large *ABN* (11/07/16 3:53 PM) UA Leuk Est [Negative] Negative (11/21/16 8:50 AM) Negative (11/07/16 3:53 PM) UA Nitrite [Negative] >182 /HPF *HI* (11/21/16 8:50 AM) UA WBC [0-5 /HPF] >100 /HPF *ABN* (11/07/16 3:53 PM) UA WBC [None Seen /HPF] 153 /HPF *HI* (11/21/16 8:50 AM) 6-10 /HPF *ABN* (11/07/16 3:53 PM) UA RBC [0-2 /HPF] Moderate /HPF (11/07/16 3:53 PM) UA Bacteria [None Seen /HPF] None Seen *NA* (11/21/16 8:50 AM) UA Sq Epi None Seen (11/07/16 3:53 PM) UA Sq Epi [Few] Few /LPF *NA* (11/21/16 8:50 AM) UA Mucus [None Seen /LPF] None Seen (11/07/16 3:53 PM) UA Mucus [None Seen] Occasional /HPF *ABN* (11/21/16 8:50 AM) UA [place] Yeast [None Seen /HPF] Occasional *ABN* (11/21/16 8:50 AM) UA Hyph Yeast [None Seen] IMMUNOLOGY 1 2 3 Most recent to oldest [Reference Range]: 37.3 mg/dL (11/14/16 4:54 AM) Prealbumin [18.0-45.0 mg/dL] 163.0 mg/L *HI* (11/07/16 2:53 PM) CRP [<=2.9 mg/L] Negative *NA* (11/27/16 2:49 AM) Hep Bs Ag [Negative] Negative *NA* (11/27/16 2:49 AM) Hep B Core IgM [Negative] Negative *NA* (11/27/16 2:49 AM) Hep A IgM [Negative] Positive *ABN* (11/27/16 2:49 AM) Hep C Ab HEMATOLOGY 1 2 3 Most recent to oldest [Reference Range]: 7.5 K/CMM (11/28/16 2:53 AM) 7.8 K/CMM (11/27/16 2:49 AM) 8.1 K/CMM (11/24/16 3:30 AM) WBC [3.7-10.4 K/CMM] 3.78 M/CMM *LOW* (11/28/16 2:53 AM) 3.81 M/CMM *LOW* (11/27/16 2:49 AM) 3.32 M/CMM *LOW* (11/24/16 3:30 AM) RBC [4.70-6.10 M/CMM] 10.2 g/dL *LOW* (11/28/16 2:53 AM) 10.2 g/dL *LOW* (11/27/16 2:49 AM) 8.9 g/dL *LOW* (11/24/16 3:30 AM) Hgb [14.0-18.0 g/dL] 31.4 % *LOW* (11/28/16 2:53 AM) 31.9 % *LOW* (11/27/16 2:49 AM) 27.9 % *LOW* (11/24/16 3:30 AM) Hct [42.0-54.0 %] 83.2 fL (11/28/16 2:53 AM) 83.8 fL (11/27/16 2:49 AM) 84.1 fL (11/24/16 3:30 AM) MCV [80.0-94.0 fL] 27.1 pg (11/28/16 2:53 AM) 26.8 pg *LOW* (11/27/16 2:49 AM) 26.9 pg *LOW* (11/24/16 3:30 AM) MCH [27.0-31.0 pg] 32.6 g/dL (11/28/16 2:53 AM) 31.9 g/dL *LOW* (11/27/16 2:49 AM) 32.0 g/dL (11/24/16 3:30 AM) MCHC [32.0-36.0 g/dL] 22.2 % *HI* (11/28/16 2:53 AM) 22.4 % *HI* (11/27/16 2:49 AM) 22.6 % *HI* (11/24/16 3:30 AM) RDW [11.5-14.5 %] 252 K/CMM (11/28/16 2:53 AM) 235 K/CMM (11/27/16 2:49 AM) 215 K/CMM (11/24/16 3:30 AM) Platelet [133-450 K/CMM] 9.2 fL (11/28/16 2:53 AM) 9.2 fL (11/27/16 2:49 AM) 9.1 fL (11/24/16 3:30 AM) MPV [7.4-10.4 fL] 52.4 % (11/28/16 2:53 AM) 54.3 % (11/27/16 2:49 AM) 55.3 % (11/24/16 3:30 AM) Segs [45.0-75.0 %] 29.6 % (11/28/16 2:53 AM) 27.3 % (11/27/16 2:49 AM) 29.6 % (11/24/16 3:30 AM) Lymphocytes [20.0-40.0 %] 12.0 % (11/28/16 2:53 AM) 10.4 % (11/27/16 2:49 AM) 9.6 % (11/24/16 3:30 AM) Monocytes [2.0-12.0 %] 5.4 % *HI* (11/28/16 2:53 AM) 7.1 % *HI* (11/27/16 2:49 AM) 4.7 % *HI* (11/24/16 3:30 AM) Eosinophils [0.0-4.0 %] 0.6 % (11/28/16 2:53 AM) 0.9 % (11/27/16 2:49 AM) 0.8 % (11/24/16 3:30 AM) Basophils [0.0-1.0 %] 3.9 K/CMM (11/28/16 2:53 AM) 4.2 K/CMM (11/27/16 2:49 AM) 4.5 K/CMM (11/24/16 3:30 AM) Segs-Bands # [1.5-8.1 K/CMM] 2.2 K/CMM (11/28/16 2:53 AM) 2.1 K/CMM (11/27/16 2:49 AM) 2.4 K/CMM (11/24/16 3:30 AM) Lymphocytes # [1.0-5.5 K/CMM] 0.9 K/CMM *HI* (11/28/16 2:53 AM) 0.8 K/CMM (11/27/16 2:49 AM) 0.8 K/CMM (11/24/16 3:30 AM) Monocytes # [0.0-0.8 K/CMM] 0.4 K/CMM (11/28/16 2:53 AM) 0.6 K/CMM *HI* (11/27/16 2:49 AM) 0.4 K/CMM (11/24/16 3:30 AM) Eosinophils # [0.0-0.5 K/CMM] 0.1 K/CMM (11/27/16 2:49 AM) 0.1 K/CMM (11/24/16 3:30 AM) 0.1 K/CMM (11/23/16 4:34 AM) Basophils # [0.0-0.2 K/CMM] 1+ *ABN* (11/28/16 2:53 AM) 1+ *ABN* (11/27/16 2:49 AM) 1+ *ABN* (11/24/16 3:30 AM) Anisocyte [None Seen] 1+ *ABN* (11/12/16 4:34 AM) 1+ *ABN* (11/09/16 11:30 AM) 1+ *ABN* (11/09/16 4:27 AM) Microcyte [None Seen] 99 mm/hr *HI* (11/14/16 4:54 AM) Sed Rate [0-15 mm/hr] 1.6 % *HI* (11/09/16 4:27 AM) 1.9 % *HI* (11/08/16 9:10 AM) Retic Auto [0.5-1.5 %] 15.2 seconds *HI* (11/07/16 2:53 PM) PT [12.0-14.7 seconds] 1.18 *HI* (11/07/16 2:53 PM) INR [0.85-1.17] 36.4 seconds *HI* (11/07/16 2:53 PM) PTT [22.9-35.8 seconds] MOLECULAR DIAGNOSTIC 1 2 3 Most recent to oldest [Reference Range]: Positive 1 *ABN* (11/12/16 6:06 AM) C difficile DNA [Negative] 1Result Comment: "Significant Findings called to Gracie RICHARDSON on 11/12/2016 at 12:59 by ERIC.Read Back OK." Immunizations Given and Recorded Vaccine Date Status [...] Plan Extracted from: Title: Clinical Document Author: Yadira Soto MD Date: 11/13/16 Interventional Radiology History and Phy sical History of Present Illness: infection Past Medical [...] 0.9% INJ 100 mL 500 mg IVPB [id number] 200 ml/hr [Last Rescheduled Dt/Tm: 11/13/16 13:00:00 [...] (Suspended) enoxaparin (L ovenox) 40 mg SUB-Q [id number] 11/08/16 9:00 ferrous sulfate 325 mg PO [...] mg P O BID 11/12/16 12:45 acetaminophen-hydrocodone ([place] 7.5/325 oral tablet) 1 tab PO Q4H [...] None Labs 24hr Labs 11/13 0554 Glucose Lvl77 BUN31 H Creatinine Lvl1.35 Sodium Zif227 Potassium Lvl5.4 H Chloride Slq309 CO227 AGAP12.4 Calcium Lvl9.2 eGFR69 Total CK25 Vanco Lvl6.4 Total Protein7.9 Albumin Lvl2.3 L Bili Total0.2 Bili Direct0.1 Bili Indirect0.1 Alk Vpif479 AST11 ALT13 Globulin5.6 H A/G Ratio0.4 L WBC7.6 RBC3.65 L Hgb9.4 L Hct29.4 L MCV80.6 MCH25.8 L MCHC32.0 RDW19.3 H Ksddgyvk770 MPV7.9 Segs37.2 L Monocytes8.5 Bbqmsagelpp23.0 H Eosinophils7.4 H Basophils0.9 Segs-Bands #2.8 Lymphocytes #3.5 Monocytes #0.7 Eosinophils #0.6 H Basophils #0.1 11/12 0606 C difficile DNAPositive Review of Systems Constitutional Symptoms: no fever, [...] allergies, no fever, no chills Vital Signs VitalsTmp(F)Tmp(C)[id number] 11/13 10:45 130/[id number]- ----- 11/13 10:40 139/[id number]- ----- 11/13 10:35 127/[id number]- ----- 11/13 10:30 128/[id number]-- ---- 11/13 10:25 150/[id number]- ----- 24 Hr Tmax: 98.4F (36.89c) at 11/12 19:5 7Vital Signs are the last 5 in the past 48 hours. 24 Hr Tmin: 97.5F (36.39c) at 11/13 03: 40Weights are the last 5 in 60 days, plus initial. DateWt(kg)Wt(lb)Ht(cm)Ht(in)MethodBMIBSA 11/09 70.45 155.42915.88 72.00----- 11/07 (initial) 70.45 155.00Estimated 21 .11.89 11/07182.88 72.00Stated (no point of care glucose results charte d in last 24 hours) Most Recent Scores: 11/13/16Pain Intensity NRS (0-10)0 11/13/16Johns Balderrama Fall Score10 11/12/16Braden Score18 11/12/16Glasgow Coma Score15 Lines, Tubes, and Drains: 11/13/2016 10:46 Central [...] whisper Speech: Adequate vocabulary, no impediments Nose: [place] nasal turbinates, septum midline, no drainage or [...] no rashes or jaundice Impression: need for senior care IV access for antibiotics Plan: PICC placement
--- OUTSIDE RECORDS SUMMARY | 2020-03-18 10:24 | XMS REPORT | Continuity of Care Document ---
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 74.844 kg Bruno Donohue BMI 2020-01-10 21:44:00 22.38 kg/m2 Bruno Donohue Procedures Procedure Date / Time Performed Performing Clinician Sourc e BASIC METABOLIC PANEL 2020-01-13 06:13:00 Marielena Mcbride HC COMPLETE BLD COUNT W/AUTO DIFF 2020-01-13 06:13:00 Burnette ESTIMATED GFR 2020-01-13 06:13:00 Marielena Mcbride odadolph BASIC METABOLIC PANEL 2020-01-12 06:14:00 Marielena Mcbride HC COMPLETE BLD COUNT W/AUTO DIFF 2020-01-12 06:14:00 Burnette ESTIMATED GFR 2020-01-12 06:14:00 Marielena Mcbride LACTIC ACID LEVEL, SEPSIS - NOW AND REPEAT 2X EVERY 3 HOURS 2020-01-11 04:41:00 Francisco Jefferson TROPONIN 2020-01-11 04:41:00 Francisco Jefferson LACTIC ACID LEVEL, SEPSIS - NOW AND REPEAT 2X EVERY 3 HOURS 2020-01-11 02:05:00 Francisco Jefferson TROPONIN 2020-01-11 02:05:00 Francisco Jefferson MRI FOOT WO CONTRAST RIGHT 2020-01-11 01:16:10 Francisco Jefferson tt Bruno Donohue CT ABDOMEN PELVIS WO CONTRAST 2020-01-11 00:20:37 Francisco Jefferson MI CRITICAL CARE, E/M 30-74 MINUTES 2020-01-10 23:02:47 Benson Jefferson URINE CULTURE 2020-01-10 23:01:00 Francisco Jefferson URINALYSIS SCREEN AND MICROSCOPY, WITH REFLEX TO CULTURE 22:43:00 Francisco Jefferson BLOOD CULTURE, AEROBIC & ANAEROBIC 2020-01-10 22:08:00 Kei Jefferson HC COMPLETE BLD COUNT W/AUTO DIFF 2020-01-10 22:08:00 Elvis Jefferson COMPREHENSIVE METABOLIC PANEL 2020-01-10 22:08:00 Francisco Jefferson LACTIC ACID LEVEL, SEPSIS - NOW AND REPEAT 2X EVERY 3 HOURS 2020-01-10 22:08:00 Francisco Jefferson LIPASE LEVEL 2020-01-10 22:08:00 Francisco Jefferson TROPONIN 2020-01-10 22:08:00 Francisco Jefferson CREATINE KINASE, TOTAL (CPK) 2020-01-10 22:08:00 Francisco Jefferson BETA HYDROXYBUTYRATE 2020-01-10 22:08:00 Francisco Jefferson B NATRIURETIC PEPTIDE 2020-01-10 22:08:00 Francisco Jefferson PROTHROMBIN TIME WITH INR 2020-01-10 22:08:00 Francisco Jefferson PARTIAL THROMBOPLASTIN TIME (PTT) 2020-01-10 22:08:00 Elvis Jefferson ESTIMATED GFR 2020-01-10 22:08:00 Francisco Jefferson POC GLUCOSE 2020-01-10 21:59:00 Francisco Jefferson ECG 12-LEAD 2020-01-10 21:52:51 Bruno Ballard BASIC METABOLIC PANEL 2019-12-29 11:57:00 Marielena Mcbride ESTIMATED GFR 2019-12-29 11:57:00 Marielena Mcbride Meth odadolph BASIC METABOLIC PANEL 2019-12-28 10:25:00 Marielena Mcbride Gnosticist ESTIMATED GFR 2019-12-28 10:25:00 Marielena Mcbride Meth odadolph HC COMPLETE BLD COUNT W/AUTO DIFF 2019-12-28 04:19:00 Scott Gnosticist BASIC METABOLIC PANEL 2019-12-27 16:25:00 Marielena Mcbride Gnosticist ESTIMATED GFR 2019-12-27 16:25:00 Marielena Mcbride Meth odadolph POC GLUCOSE 2019-12-27 10:59:00 Alexander Mcbridek Bruno Meth odadolph BASIC METABOLIC PANEL 2019-12-27 09:07:00 Marielena Mcbride Gnosticist HC COMPLETE BLD COUNT W/AUTO DIFF 2019-12-27 09:07:00 Burnette ESTIMATED GFR 2019-12-27 09:07:00 Marielena Mcbride odadolph BASIC METABOLIC PANEL 2019-12-26 05:22:00 Marielena Mcbride Gnosticist CBC WITH PLATELET AND DIFFERENTIAL 2019-12-26 05:22:00 Benson Mcbride ESTIMATED GFR 2019-12-26 05:22:00 Marielena Mcbride Meth odist MANUAL DIFFERENTIAL 2019-12-26 05:22:00 Marielena Mcbride Gnosticist BASIC METABOLIC PANEL 2019-12-25 10:31:00 Marielena Mcbride Gnosticist CBC WITH PLATELET AND DIFFERENTIAL 2019-12-25 10:31:00 Benson Mcbride ESTIMATED GFR 2019-12-25 10:31:00 Marielena Mcbride Meth odist MANUAL DIFFERENTIAL 2019-12-25 10:31:00 Marielena Mcbride Gnosticist BASIC METABOLIC PANEL 2019-12-24 10:23:00 Maximo Chavira Gnosticist CBC WITH PLATELET AND DIFFERENTIAL 2019-12-24 10:23:00 Maximo Galo MAGNESIUM LEVEL 2019-12-24 10:23:00 Maximo Chavira PHOSPHORUS LEVEL 2019-12-24 10:23:00 Maximo Chavira ESTIMATED GFR 2019-12-24 10:23:00 Maximo Chavira Gnosticist MANUAL DIFFERENTIAL 2019-12-24 10:23:00 Maximo Chavira HC COMPLETE BLD COUNT W/AUTO DIFF 2019-12-23 13:58:00 Burnette BASIC METABOLIC PANEL 2019-12-23 11:36:00 Marielena Mcbride n Gnosticist ESTIMATED GFR 2019-12-23 11:36:00 Marielena Mcbride Meth odist BASIC METABOLIC PANEL 2019-12-23 07:35:00 Maximo Chavira HC COMPLETE BLD COUNT W/AUTO DIFF 2019-12-23 07:35:00 Maximo Harper MAGNESIUM LEVEL 2019-12-23 07:35:00 Maximo Chavira PHOSPHORUS LEVEL 2019-12-23 07:35:00 Maximo Chavira ESTIMATED GFR 2019-12-23 07:35:00 Maximo Chavira OCCULT BLOOD, STOOL 2019-12-22 23:30:00 Marielena Mcbride CREATININE LEVEL, URINE, RANDOM 2019-12-22 21:47:00 Maximo Chavira POTASSIUM, URINE, RANDOM 2019-12-22 21:47:00 Maximo Chavira PROTEIN, URINE, RANDOM 2019-12-22 21:47:00 Maximo Chavira SODIUM LEVEL, URINE, RANDOM 2019-12-22 21:47:00 Elmer Chavira HEMOGLOBIN & HEMATOCRIT 2019-12-22 21:42:00 Marielena Mcbride Gnosticist MRI FOOT WO CONTRAST RIGHT 2019-12-22 20:09:24 Marielena Mcbride MRI ANKLE WO CONTRAST RIGHT 2019-12-22 20:08:57 Marielena Mcbride MRI LOWER EXTREMITY WO CONTRAST RIGHT 2019-12-22 20:08:46 Marielena Mcbride HEMOGLOBIN & HEMATOCRIT 2019-12-22 16:29:00 Marielena Mcbride TRANSFUSE RED BLOOD CELLS 2019-12-22 13:09:09 Marielena Mcbride HEMOGLOBIN & HEMATOCRIT 2019-12-22 12:14:00 Marielena Mcbride HEMOGLOBIN & HEMATOCRIT 2019-12-22 08:15:00 Marielena Mcbride BASIC METABOLIC PANEL 2019-12-22 07:04:00 Maximo Chavira CBC WITH PLATELET AND DIFFERENTIAL 2019-12-22 07:04:00 Maximo Galo MAGNESIUM LEVEL 2019-12-22 07:04:00 Maximo Chavira PHOSPHORUS LEVEL 2019-12-22 07:04:00 Maximo Chavira VANCOMYCIN LEVEL, RANDOM 2019-12-22 07:04:00 Marielena Mcbride ESTIMATED GFR 2019-12-22 07:04:00 Maximo Chavira MANUAL DIFFERENTIAL 2019-12-22 07:04:00 Maximo Chavira BASIC METABOLIC PANEL 2019-12-21 20:25:00 Maximo Chavira ESTIMATED GFR 2019-12-21 20:25:00 Maximo Chavira ECG 12-LEAD 2019-12-21 19:30:16 Marielena Mcbride Meth odadolph ECG 12-LEAD 2019-12-21 18:18:40 Marielena Mcbride Meth odadolph US RENAL 2019-12-21 17:15:54 Maximo Chavira BASIC METABOLIC PANEL 2019-12-21 15:27:00 Marielena Mcbride n Gnosticist ESTIMATED GFR 2019-12-21 15:27:00 Marielena Mcbride odadolph XR TIBIA FIBULA 2 VW RIGHT 2019-12-21 08:04:22 Ryann Shannon XR ANKLE 3+ VW RIGHT 2019-12-21 08:03:38 Ryann Shannono antonia Carr Gnosticist HC COMPLETE BLD COUNT W/AUTO DIFF 2019-12-21 05:42:00 Claudia Shannon ypsalma Donohue BASIC METABOLIC PANEL 2019-12-21 05:42:00 Ryann Shannon oka Bruno Donohue ESTIMATED GFR 2019-12-21 05:42:00 Ryann Shannon TRANSFUSE RED BLOOD CELLS 2019-12-21 04:12:10 Maximo Merchant LACTIC ACID LEVEL, SEPSIS - NOW AND REPEAT 2X EVERY 3 HOURS 2019-12-21 02:11:00 Maximo Merchant POC GLUCOSE 2019-12-20 22:22:00 Maximo Merchantist BASIC METABOLIC PANEL 2019-12-20 22:20:00 Maximo Merchant ESTIMATED GFR 2019-12-20 22:20:00 Maximo Merchant on Gnosticist LACTIC ACID LEVEL, SEPSIS - NOW AND REPEAT 2X EVERY 3 HOURS 2019-12-20 21:37:00 Maximo Merchant URINE CULTURE 2019-12-20 20:36:00 Maximo Merchant on Gnosticist URINALYSIS SCREEN AND MICROSCOPY, WITH REFLEX TO CULTURE 20:17:00 Maximo Merchant ECG 12-LEAD 2019-12-20 20:07:59 Maximo Merchant on Gnosticist POC GLUCOSE 2019-12-20 20:02:00 Maximo Merchant on Gnosticist PROTHROMBIN TIME WITH INR 2019-12-20 19:48:00 Maximo Merchant PARTIAL THROMBOPLASTIN TIME (PTT) 2019-12-20 19:48:00 Maximo Merchant TYPE AND SCREEN 2019-12-20 19:48:00 Maximo Merchant on Gnosticist PREPARE RBC 2019-12-20 19:48:00 Marielena Mcbride Meth odist BLOOD CULTURE, AEROBIC & ANAEROBIC 2019-12-20 18:54:00 Maximo Merchant HC COMPLETE BLD COUNT W/AUTO DIFF 2019-12-20 18:54:00 Maximo Merchant BASIC METABOLIC PANEL 2019-12-20 18:54:00 Maximo Merchant HEPATIC FUNCTION PANEL 2019-12-20 18:54:00 Maximo Merchant LIPASE LEVEL 2019-12-20 18:54:00 Maximo Merchant on Gnosticist LACTIC ACID LEVEL, SEPSIS - NOW AND REPEAT 2X EVERY 3 HOURS 2019-12-20 18:54:00 Maximo Merchant ESTIMATED GFR 2019-12-20 18:54:00 Maximo Merchant on Gnosticist SMEAR REVIEW 2019-12-20 18:54:00 Maximo Merchant on Gnosticist MI CRITICAL CARE, E/M 30-74 MINUTES 2019-12-20 18:43:13 Maximo Flynn i MI CRITICAL CARE, ADDL 30 MIN 2019-12-20 18:43:13 Kranthi Merchant BLOOD CULTURE, AEROBIC & ANAEROBIC 2019-12-20 18:30:00 Maximo Merchant BASIC METABOLIC PANEL 2019-10-19 05:19:00 Bradly Gibson HC COMPLETE BLD COUNT W/AUTO DIFF 2019-10-19 05:19:00 Bradly Buckner imad Tra Donohue ESTIMATED GFR 2019-10-19 05:19:00 Bradly Gibsonmad Tra Donohue HC COMPLETE BLD COUNT W/AUTO DIFF 2019-10-17 05:35:00 Bradly Buckner i COMPREHENSIVE METABOLIC PANEL 2019-10-17 05:35:00 Bradly Gibsonmad Tra Donohue ESTIMATED GFR 2019-10-17 05:35:00 Bradly Gibsond Tra Donohue URINE CULTURE 2019-10-17 02:46:[address] [facility] Gnosticist RESPIRATORY PATHOGEN PANEL 2019-10-17 02:03:00 Bradly Gibson ammari Donohue URINALYSIS SCREEN AND MICROSCOPY, WITH REFLEX TO CULTURE 02:03:00 Benny Almanzar URINE DRUGS OF ABUSE SCREEN 2019-10-17 02:03:00 Bradly Gibson freddie Tra Donohue TROPONIN 2019-10-16 18:10:00 Bradly Gibson XR CHEST 1 VW PORTABLE 2019-10-16 16:55:41 Bradly Gibsonhamma d Tra Donohue TROPONIN 2019-10-16 16:30:00 Bradly Gibsonmabenson Donohue ECG 12-LEAD 2019-10-16 15:51:54 Bradly Gibsonmad Tra Donohue BASIC METABOLIC PANEL 2019-10-16 06:44:00 Benny Almanzar ESTIMATED GFR 2019-10-16 06:44:[address] ABDOMEN PELVIS W CONTRAST 2019-10-16 00:28:41 Zechariah Almanzar HC COMPLETE BLD COUNT W/AUTO DIFF 2019-10-15 22:04:00 Benny Almanzar COMPREHENSIVE METABOLIC PANEL 2019-10-15 22:04:00 Almanzar Jaydonfausot alexandra Donohue ESTIMATED GFR 2019-10-15 22:04:00 Benny Almanzar Gnosticist HC COMPLETE BLD COUNT W/AUTO DIFF 2019-09-12 05:03:00 Perla Schneider BASIC METABOLIC PANEL 2019-09-12 05:03:00 Perla Schneider ESTIMATED GFR 2019-09-12 05:03:00 Perla Schneider SMEAR REVIEW 2019-09-12 05:03:00 Perla Schneider HC COMPLETE BLD COUNT W/AUTO DIFF 2019-08-25 05:57:00 Perla Schneider BASIC METABOLIC PANEL 2019-08-25 05:57:00 Perla Schneider ESTIMATED GFR 2019-08-25 05:57:00 Perla Schneider URINE DRUGS OF ABUSE SCREEN 2019-08-19 13:10:00 Charmaine Perdomo HC COMPLETE BLD COUNT W/AUTO DIFF 2019-08-19 04:00:00 Alice Perdomo COMPREHENSIVE METABOLIC PANEL 2019-08-19 04:00:00 Charmaine Perdomo THYROID STIMULATING HORMONE 2019-08-19 04:00:00 Charmaine Perdomo ESTIMATED GFR 2019-08-19 04:00:00 Hilda Quiros BASIC METABOLIC PANEL 2019-08-16 06:42:00 Grant Jimenes ESTIMATED GFR 2019-08-16 06:42:00 Grant Jimenes MI AN ELECTIVE ENDOTRACHEAL AIRWAY 2019-08-14 10:42:47 Declan Bedolla SURGICAL PATHOLOGY REQUEST 2019-08-14 09:49:00 Grant Jimenes BASIC METABOLIC PANEL 2019-08-14 05:37:00 Bradly Gibsond Tra Donohue ESTIMATED GFR 2019-08-14 05:37:00 ChirsChristian lawsoned Cedillo Tra Donohue BASIC METABOLIC PANEL 2019-08-12 06:32:00 Chris, Bradly Cedillo Tra Bruceist HC COMPLETE BLD COUNT W/AUTO DIFF 2019-08-12 06:32:00 Bogisellear i, Bradly Cedillo Tra Donohue ESTIMATED GFR 2019-08-12 06:32:00 ChrisChristian lawsoned Cedillo Tra Donohue BASIC METABOLIC PANEL 2019-08-11 06:32:00 ChrisChristian lawsoned Cedillo Tra Donohue HC COMPLETE BLD COUNT W/AUTO DIFF 2019-08-11 06:32:00 Bokhar i, Bradly Cedillo Tra Bruceist ESTIMATED GFR 2019-08-11 06:32:00 Chris, Bradly Cedillo Tra Donohue BLOOD CULTURE, AEROBIC & ANAEROBIC 2019-08-10 04:33:00 Bokha ri, Bradly Cedillo Tra Donohue BASIC METABOLIC PANEL 2019-08-10 04:33:00 ChrisChristian lawsoned Cedillo Tra Bruceist HC COMPLETE BLD COUNT W/AUTO DIFF 2019-08-10 04:33:00 Bokhar i, Bradly Cedillo Tra Bruceist ESTIMATED GFR 2019-08-10 04:33:00 ChrisChristianed Cedillo Tra Donohue BLOOD CULTURE, AEROBIC & ANAEROBIC 2019-08-10 04:29:00 Bokha ri, Bradly Cedillo Tra Donohue HC COMPLETE BLD COUNT W/AUTO DIFF 2019-08-09 04:36:00 Alcon Gomez Gnosticist BASIC METABOLIC PANEL 2019-08-09 04:36:00 Lu Gomez Gnosticist ESTIMATED GFR 2019-08-09 04:36:00 Lu Gomez Bruno Meth odist CBC WITH PLATELET AND DIFFERENTIAL 2019-08-08 05:00:00 Shireen Gomez Bruno Gnosticist BASIC METABOLIC PANEL 2019-08-08 05:00:00 Sheng Gomezfausto iyer Gnosticist ESTIMATED GFR 2019-08-08 05:00:00 Lu Gomez Bruno Chadwick odadolph XR CHEST 1 VW PORTABLE 2019-08-07 11:45:45 Bradly Gibson Gnosticist HC COMPLETE BLD COUNT W/AUTO DIFF 2019-08-07 06:56:00 Alcon Gomez Bruno Gnosticist PROTHROMBIN TIME WITH INR 2019-08-07 06:56:00 Lu Gomez David vargas Gnosticist BASIC METABOLIC PANEL 2019-08-07 06:56:00 Sheng Gomezfausto iyer Gnosticist ESTIMATED GFR 2019-08-07 06:56:00 kimberlyLu tobar Bruno Chadwick odadolph CT ABDOMEN PELVIS WO CONTRAST 2019-08-06 17:38:19 Richard Plata Gnosticist URINE CULTURE 2019-08-06 17:07:00 Sedrick Plata Met hodist GRAM STAIN 2019-08-06 17:07:00 Sedrick Plata Met hodist HC COMPLETE BLD COUNT W/AUTO DIFF 2019-08-06 16:30:00 Kathrin Plata Gnosticist COMPREHENSIVE METABOLIC PANEL 2019-08-06 16:30:00 Richard Plata Gnosticist LIPASE LEVEL 2019-08-06 16:30:00 Sedrick Plata Met hodist ESTIMATED GFR 2019-08-06 16:30:00 Sedrick Plata Met hodist URINALYSIS SCREEN AND MICROSCOPY, WITH REFLEX TO CULTURE 16:14:00 Sedrick Plata Gnosticist BASIC METABOLIC PANEL 2019-04-10 05:36:00 Rogelio Marquez Gnosticist ESTIMATED GFR 2019-04-10 05:36:00 Rogelio Marquez odadolph BASIC METABOLIC PANEL 2019-04-09 05:20:00 Alma, Rogelio Housto n Gnosticist ESTIMATED GFR 2019-04-09 05:20:00 Rogelio Marquez Meth odist BASIC METABOLIC PANEL 2019-04-08 06:20:00 Rogelio Marquez n Gnosticist ESTIMATED GFR 2019-04-08 06:20:00 Rogelio Marquez Meth odist IR NON-TUNNELED CENTRAL LINE PLACEMENT 2019-04-07 09:33:33 Victor M Miguel Gnosticist US GUIDED VASCULAR ACCESS 2019-04-07 09:33:33 Mili Brennan Gnosticist MAGNESIUM LEVEL 2019-04-07 08:25:00 Jose Nelson Gnosticist PHOSPHORUS LEVEL 2019-04-07 08:25:00 Jose Nelson Gnosticist BASIC METABOLIC PANEL 2019-04-07 08:25:00 Jose Nelson Gnosticist ESTIMATED GFR 2019-04-07 08:25:00 Jose Nelson Gnosticist XR CHEST 1 VW PORTABLE 2019-04-06 07:58:21 Rogelio Marquez on Gnosticist CBC HEMOGRAM 2019-04-06 05:36:00 Jose Nelson Gnosticist MAGNESIUM LEVEL 2019-04-06 05:36:00 Jose Nelson Gnosticist PHOSPHORUS LEVEL 2019-04-06 05:36:00 Jose Nelson Gnosticist BASIC METABOLIC PANEL 2019-04-06 05:36:00 Jose Nelson Gnosticist B NATRIURETIC PEPTIDE 2019-04-06 05:36:00 Rogelio Marquez Gnosticist ESTIMATED GFR 2019-04-06 05:36:00 Jose Nelson Gnosticist POTASSIUM LEVEL 2019-04-05 15:40:00 Yung Bartlett Meth odist CBC HEMOGRAM 2019-04-05 05:50:00 Jose Nelson Gnosticist VANCOMYCIN LEVEL, RANDOM 2019-04-05 05:50:00 Cain Bedolla i Gnosticist MAGNESIUM LEVEL 2019-04-05 05:50:00 Willy Nelsonele Alley Donohue PHOSPHORUS LEVEL 2019-04-05 05:50:00 Willy Nelsonele Alley Donohue BASIC METABOLIC PANEL 2019-04-05 05:50:00 Omar Jose Bushra jacksone Bruno Donohue ESTIMATED GFR 2019-04-05 05:50:00 Jose Nelson VANCOMYCIN LEVEL, TROUGH 2019-04-04 10:00:00 Rogelio Marquez URINE CULTURE 2019-04-04 05:50:00 Rogelio Marquez Meth odadolph GRAM STAIN 2019-04-04 05:50:00 Rogelio Marquez Meth odadolph POC GLUCOSE 2019-04-04 05:14:00 Bradly Gibson URINALYSIS SCREEN AND MICROSCOPY, WITH REFLEX TO CULTURE 201 04-12-01 04:28:00 Rogelio Marquez CBC HEMOGRAM 2019-04-04 03:41:00 Jose Nelson BASIC METABOLIC PANEL 2019-04-04 03:41:00 Jose Nelson ESTIMATED GFR 2019-04-04 03:41:00 Jose Nelson PHOSPHORUS LEVEL 2019-04-04 03:41:00 Jose Nelson MAGNESIUM LEVEL 2019-04-04 03:41:00 Jose Nelson B NATRIURETIC PEPTIDE 2019-04-04 03:41:[address] ANGIOGRAM PE CHEST 2019-04-03 06:39:38 Linnette Burns XR CHEST 1 VW PORTABLE 2019-04-03 06:36:30 Gagandeep Moreno ARTERIAL BLOOD GAS 2019-04-03 04:20:00 Cain Bedolla BASIC METABOLIC PANEL 2019-04-03 04:15:00 Gagandeep Moreno HC COMPLETE BLD COUNT W/AUTO DIFF 2019-04-03 04:15:00 Ren Moreno MAGNESIUM LEVEL 2019-04-03 04:15:00 Gagandeep Moreno PHOSPHORUS LEVEL 2019-04-03 04:15:00 Gagandeep Moreno B NATRIURETIC PEPTIDE 2019-04-03 04:15:00 Gagandeep Moreno ESTIMATED GFR 2019-04-03 04:15:00 Cain Bedolla PARTIAL THROMBOPLASTIN TIME (PTT) 2019-04-03 04:15:00 Alice Bedolla SMEAR REVIEW 2019-04-03 04:15:00 Cain Bedolla TROPONIN, I-STAT 2019-04-03 01:28:00 Gagandeep Moreno US DUPLEX VENOUS LOWER EXTREMITY BILATERAL 2019-04-03 00:09: 52 Cain Bedolla ANTI XA, UNFRACTIONATED 2019-04-02 20:54:00 Cain Bedolla CBC HEMOGRAM 2019-04-02 20:54:00 Cain Bedolla US RENAL 2019-04-02 20:50:25 Gagandeep Moreno ARTERIAL BLOOD GAS 2019-04-02 20:45:00 Cain Bedolla TROPONIN 2019-04-02 19:48:00 Gagandeep Moreno PARTIAL THROMBOPLASTIN TIME (PTT) 2019-04-02 15:15:00 Taye Ward PROTHROMBIN TIME WITH INR 2019-04-02 15:15:00 Taye Ward ARTERIAL BLOOD GAS 2019-04-02 15:09:00 Gagandeep Morenoist HC US GUIDED VASCULAR ACCESS 2019-04-02 14:26:14 Johanna Gregorio HC CATH DUAL LUMEN PICC # [id number] 2823-08-30 14:26:14 Felisha Gregorio CONSULT TO SEPSIS RESPONSE TEAM 2019-04-02 09:47:35 Gagandeep Moreno ECG 12-LEAD 2019-04-02 07:58:40 Gagandeep Moreno CBC HEMOGRAM 2019-04-02 07:04:00 Gagandeep Moreno BASIC METABOLIC PANEL 2019-04-02 07:04:00 Gagandeep Moreno Gnosticist ESTIMATED GFR 2019-04-02 07:04:00 Grant Jimenes odadolph TROPONIN 2019-04-02 07:04:00 Marily Aburto LACTIC ACID LEVEL 2019-04-02 07:04:00 Jalil Grantdallas Carr Nj thodist MANUAL DIFFERENTIAL 2019-04-02 07:04:00 Grant Jimenes XR CHEST 1 VW PORTABLE 2019-04-02 06:36:14 Marily Aburto POC GLUCOSE 2019-04-02 05:23:00 Bradly Gibson CBC HEMOGRAM 2019-04-01 05:36:00 Jalil Grantdallas Chadwick odadolph BASIC METABOLIC PANEL 2019-04-01 05:36:00 Grant Jimenes Gnosticist ESTIMATED GFR 2019-04-01 05:36:00 Grant Jimenes US CAROTID DUPLEX BILATERAL 2019-03-31 20:01:19 Grant Jimenes MRI BRAIN WO CONTRAST 2019-03-31 16:24:55 Grant Jimenes EEG AWAKE/ASLEEP LESS THAN 41 MIN 2019-03-31 13:32:20 Ihsan Lopez XR ABDOMEN 1 VW PORTABLE 2019-03-30 19:04:12 Grant Jimenes TTE COMPLETE, WO CONTRAST, W DOPPLER ([id number]) 2019-03-30 16:32:51 Grant Jimenes TROPONIN 2019-03-30 05:58:00 CarolZainab lin Bruno Chadwick odadolph ECG 12-LEAD 2019-03-30 04:29:03 Ryann Shannon Gnosticist HC COMPLETE BLD COUNT W/AUTO DIFF 2019-03-30 03:35:00 Boyd Ewing ketan Elke Donohue BASIC METABOLIC PANEL 2019-03-30 03:35:00 Irene Ewing ESTIMATED GFR 2019-03-30 03:35:00 GildardoIreneshireen Donohue TROPONIN 2019-03-30 03:35:00 Zainab Miranda Meth odist TROPONIN, I-STAT 2019-03-30 00:39:00 FidZainab lin hodist TROPONIN 2019-03-29 21:25:00 Irene Ewing LACTIC ACID LEVEL, SEPSIS - NOW AND REPEAT 2X EVERY 3 HOURS 2019-03-29 21:25:00 Irene Ewing TTE COMPLETE, WO CONTRAST, W DOPPLER ([id number]) 2019-03-29 17:1 2:00 Irene Ewing TROPONIN 2019-03-29 16:54:00 Irene Ewing LACTIC ACID LEVEL, SEPSIS - NOW AND REPEAT 2X EVERY 3 HOURS 2019-03-29 16:54:00 Irene Ewing URINE CULTURE 2019-03-29 14:50:00 [facility] GR[facility] 2019-03-29 14:50:00 [facility] XR CHEST 1 VW PORTABLE 2019-03-29 14:47:32 Francisco Arboleda URINALYSIS SCREEN AND MICROSCOPY, WITH REFLEX TO CULTURE 201 04-11-26 14:30:00 Francisco Arboleda URINE DRUGS OF ABUSE SCREEN 2019-03-29 14:30:[address] HEAD WO CONTRAST 2019-03-29 14:11:40 Francisco Arboleda ECG ED PRELIMINARY INTERPRETATION 2019-03-29 13:47:51 Elvis Arboleda BLOOD CULTURE, AEROBIC & ANAEROBIC 2019-03-29 13:12:00 Claudia Ewing HC COMPLETE BLD COUNT W/AUTO DIFF 2019-03-29 13:12:00 Elvis Arboleda BASIC METABOLIC PANEL 2019-03-29 13:12:00 Francisco Arboleda on Gnosticist CREATINE KINASE, TOTAL (CPK) 2019-03-29 13:12:00 Francisco Arboleda TROPONIN 2019-03-29 13:12:00 Irene Ewing Gnosticist B NATRIURETIC PEPTIDE 2019-03-29 13:12:00 Francisco Arboleda on Gnosticist ESTIMATED GFR 2019-03-29 13:12:00 Francisco Arboleda Met hodist LACTIC ACID LEVEL, SEPSIS - NOW AND REPEAT 2X EVERY 3 HOURS 2019-03-29 13:12:00 Irene Ewing HEPATIC FUNCTION PANEL 2019-03-29 13:12:00 Francisco Arboleda Gnosticist AMMONIA LEVEL 2019-03-29 13:12:00 Francisco Arboleda Met hodist SALICYLATE LEVEL 2019-03-29 13:12:00 Francisco Arboleda Me thodist ACETAMINOPHEN LEVEL 2019-03-29 13:12:00 Francisco Arboleda SMEAR REVIEW 2019-03-29 13:12:00 Francisco Arboleda Met hodadolph BLOOD CULTURE, AEROBIC & ANAEROBIC 2019-03-29 13:05:00 Claudia Ewing ECG 12-LEAD 2019-03-29 12:18:39 Francisco Arboleda Met hodadolph Plan of Care Planned Activity Planned Date Details Comments Source Future Scheduled Test 2020-05-04 00:00:00 IMM Influenza Seas onal May to October (>/= 19 yrs) [code = IMM Influenza Seasonal May to October (>/= 19 yrs)] [facility] Future Scheduled Test 2020-04-04 00:00:00 INFLUENZA VACCINE [code = INFLUENZA VACCINE] Bruno Donohue Encounters Start Date/Time End Date/Time Encounter Type Admission Type Attendi [facility] Care Department Encounter ID Source 2019-11-04 13:40:00 Inpatient [facility] [id number] [facility] 2016-08-26 13:48:36 Inpatient [facility] [id number] [facility] 2016-08-25 17:03:25 Inpatient [facility] [id number] [facility] 2016-08-24 22:35:51 Inpatient [facility] [id number] [facility] 2020-01-10 00:00:00 2020-01-13 00:00:00 Inpatient A[place]IN V[place]FANA [place] [id number] [facility] 2019-12-20 00:00:00 2019-12-29 00:00:00 Inpatient MARIELENA MCBRIDE [place] [id number] [facility] 2019-12-02 23:05:00 2019-12-02 19:48:00 Inpatient E [id number] 2019-10-22 00:00:00 2019-10-22 00:00:00 Emergency THONG GONSALEZ [place] [id number] [facility] 2019-10-15 00:00:00 2019-10-22 00:00:00 Inpatient BRADLY GIBSON [place] [id number] [facility] 2019-08-17 00:00:00 2019-09-13 00:00:00 Inpatient HILDA QUIROS [place] [id number] [facility] 2019-08-06 00:00:00 2019-08-17 00:00:00 Inpatient GRANT JIMENES [facility] [id number] [facility] 2019-02-12 20:34:00 2019-02-17 18:25:00 Inpatient E RAUL TORRES [facility] [id number] [facility] 2017-02-01 00:01:00 2017-02-01 00:01:00 Outpatient [facility] [id number] [facility] 2017-01-13 14:03:00 2017-01-13 14:03:00 Outpatient [facility] [id number] [facility] 2016-08-25 05:37:36 2016-08-25 05:37:36 Emergency [facility] [id number] [facility] Results Test Description Test Time Test Comments Results Result Comments Source HEPATITIS C RNA BY PCR (QUAL) 2020-03-12 03:06:00 Test Item HEPATITIS C RNA BY PCR (QUAL) (test code = HCVRNAPCR) Negative Negative Negative: HCV RNA Not DetectedPerformed At: [facility] [address] [id number] Sanjai MD Ph:[phone] - INJ NEPH EXIST QOOSCU1975-36-24 09:35:00 Name: MAXIMO GASTELUM [facility] : 1985 Age/S: 35 / M Nanda Sawyer Unit #: [id number] Loc: JEANETTE Infante [address] Phys: Karo Steele MD Acct: [id number] Dis Date: [id number] Status: DIS IN PHONE #: [phone] Exam Date: 03/07/2020 1424 FAX #: [phone] Reason: / EXAMS: CPT CODE: [id number] INJ NEPH EXIST ACCESS [id number] Fluoro Time: 85 DAP (Gy m2): 4.98 Air Kerma (mGy): 20 EXAM: Nephrostogram and tube removal; INFORMATION: Patient with history of solitary right kidney and ureteral obstruction; status post percutaneous nephrostomy and recent retrograde insertion of 2 indwelling ureteral stents. TECHNIQUE AND FINDINGS: Informed consent was obtained. The patient was placed prone on the procedure table. Initial fluoroscopic imaging showed a right nephrostomy tube in place and indwelling ureteral stents. The patient's skin in the right flank region was prepped and draped in the usual sterile fashion. Dilute contrast material was injected through the indwelling nephrostomy tube it outlined a decompressed collecting system and good internal drainage with opacification of the urinary bladder, which has been decompressed with a Greene catheter. The nephrostomy tube was then removed over a guidewire. No complications. IMPRESSION: 1. Antegrade nephrostogram through existing catheter showed decompressed right renal collecting system and good internal drainage into the urinary bladder via indwelling stents. 2. Removal of the nephrostomy tube. Fluoroscopy Time: 85 sec CAK : 20 mGy DAP : 4980 mGy sq cm Location code: [facility] at 0935 Reported and signed by: Yosvany Ureña M.D. CC: Karo Steele MD Technologist: JENNA ZHANG CLOCK SMITH Trnscb Date/Time: 03/09 (0935) Travis Orig Print D/T: S: 03/09/2020 (093 8) PAGE 1 Signed Report HEPATITIS C RNA BY PCR (QUAL)2020-03-08 18:08:00* Test Item Value Reference Range Interpretation Comments HEPATITIS C RNA BY PCR (QUAL) (test code = HCVRNAPCR) Negative Negative Negative: HCV RNA Not DetectedPerformed At: [facility] [address] [id number] Sanjai MD Ph:[phone] [id number] 16:17:00* Test Item Value Reference Range Interpretation Comments GLUBED (test code = GLUBED) 97 mg/dL 74-106 N Performed by certified wrapper stemmer operator at [facility] [id number] 14:21:00* Test Item Value Reference Range Interpretation Comments GLUBED (test code = GLUBED) 49 mg/dL 74-106 LL Performed by certified wrapper stemmer [facility]~ BASIC METABOLIC [id number] 08:44:00* Test Item Value Reference Range Interpretation Comments SODIUM (test code = NA) 141 mmol/L 136-145 N POTASSIUM (test code = K) 4.1 mmol/L 3.5-5.1 N CHLORIDE (test code = CL) 112.0 mmol/L 98-107 H CARBON DIOXIDE (test code = CO2) 20.0 mmol/L 21-32 L Previously reported result: 20.0 mmol/LEdited by: DELIA on 20:0844 ANION GAP (test code = GAP) 13.1 10-20 N GLUCOSE (test code = GLU) 128 mg/dL 74-106 H BLOOD UREA NITROGEN (test code = BUN) 27 mg/dL 7-18 H GLOMERULAR FILTRATION RATE (test code = GFR) 36 mL/min >=60 Estimated GFR by using Modified MDRD formula.Chronic kidney disease is defined as either kidney damageor GFR <60 mL/min/1.73 m2 for >3 months. CREATININE (test code = CREAT) 2.10 mg/dL 0.7-1.3 H BUN/CREATININE RATIO (test code = BUN/CREA) 12.8 10-20 N CALCIUM (test code = CA) 7.4 mg/dL 8.5-10.1 L BASIC METABOLIC [id number] 08:03:00* Test Item Value Reference Range Interpretation Comments SODIUM (test code = NA) 141 mmol/L 136-145 N POTASSIUM (test code = K) 4.1 mmol/L 3.5-5.1 N CHLORIDE (test code = CL) 112.0 mmol/L 98-107 H CARBON DIOXIDE (test code = CO2) mmol/L 21-32 ANION GAP (test code = GAP) 10-20 GLUCOSE (test code = GLU) mg/dL 74-106 BLOOD UREA NITROGEN (test code = BUN) mg/dL 7-18 GLOMERULAR FILTRATION RATE (test code = GFR) mL/min >=60 CREATININE (test code = CREAT) mg/dL 0.7-1.3 BUN/CREATININE RATIO (test code = BUN/CREA) 10-20 CALCIUM (test code = CA) mg/dL 8.5-10.1 BASIC METABOLIC [id number] 08:03:00* Test Item Value Reference Range Interpretation Comments SODIUM (test code = NA) 141 mmol/L 136-145 N POTASSIUM (test code = K) 4.1 mmol/L 3.5-5.1 N CHLORIDE (test code = CL) 112.0 mmol/L 98-107 H CARBON DIOXIDE (test code = CO2) 20.0 mmol/L 21-32 L ANION GAP (test code = GAP) 10-20 GLUCOSE (test code = GLU) 128 mg/dL 74-106 H BLOOD UREA NITROGEN (test code = BUN) 27 mg/dL 7-18 H GLOMERULAR FILTRATION RATE (test code = GFR) 36 mL/min >=60 Estimated GFR by using Modified MDRD formula.Chronic kidney disease is defined as either kidney damageor GFR <60 mL/min/1.73 m2 for >3 months. CREATININE (test code = CREAT) 2.10 mg/dL 0.7-1.3 H BUN/CREATININE RATIO (test code = BUN/CREA) 12.8 10-20 N CALCIUM (test code = CA) 7.4 mg/dL 8.5-10.1 L CALPROTECTIN [id number] 19:08:00* Test Item Value Reference Range Interpretation Comments CALPROTECTIN FECAL (test code = CALFECAL) <16 ug/g 0-120 Concentration Interpretation Follow-Up<16 - 50 ug/g Normal None>50 -120 ug/g Borderline Re-evaluate in 4-6 weeks >120 ug/g Abnormal Repeat as clinically indicatedPerformed At: [facility] [address] [place], [place] [id number] Sanjai MD Ph:[phone] CBC W/AUTO [id number] 12:10:00* Test Item Value Reference Range Interpretation Comments WHITE BLOOD CELL (test code = WBC) 5.7 K/mm3 4.5-12.5 N RED BLOOD CELL (test code = RBC) 3.01 mill/mm3 4.0-5.8 L HEMOGLOBIN (test code = HGB) 8.1 gram/dL 13.0-17.5 L HEMATOCRIT (test code = HCT) 26.8 % 42.0-52.0 L MEAN CELL VOLUME (test code = MCV) 89.0 fL 80-98 N MEAN CELL HGB (test code = MCH) 26.9 picogram 27.0-33.0 L MEAN CELL HGB CONCETRATION (test code = MCHC) 30.2 gram/dL 33.0-36. 0 L RED CELL DISTRIBUTION WIDTH (test code = RDW) 17.2 % 11.6-16. 2 H RED CELL DISTRIBUTION WIDTH SD (test code = RDW-SD) 55.8 fL 37 .0-51.0 H PLATELET COUNT (test code = PLT) 167 K/mm3 150-450 N MEAN PLATELET VOLUME (test code = MPV) 10.7 fL 6.7-11.0 N NEUTROPHIL % (test code = NT%) 65.2 % 39.0-69.0 N IMMATURE GRANULOCYTE % (test code = IG%) 0.2 % 0.0-5.0 N LYMPHOCYTE % (test code = LY%) 23.3 % 25.0-55.0 L MONOCYTE % (test code = MO%) 9.4 % 0.0-10.0 N EOSINOPHIL % (test code = EO%) 1.4 % 0.0-5.0 N BASOPHIL % (test code = BA%) 0.5 % 0.0-1.0 N NUCLEATED RBC % (test code = NRBC%) 0.0 % 0-0 N NEUTROPHIL # (test code = NT#) 3.74 K/mm3 1.8-7.7 N IMMATURE GRANULOCYTE # (test code = IG#) 0.01 x10 3/uL 0-0.03 N LYMPHOCYTE # (test code = LY#) 1.34 K/mm3 1.0-5.0 N MONOCYTE # (test code = MO#) 0.54 K/mm3 0-0.8 N EOSINOPHIL # (test code = EO#) 0.08 K/mm3 0.0-0.5 N BASOPHIL # (test code = BA#) 0.03 K/mm3 0.0-0.2 N NUCLEATED RBC # (test code = NRBC#) 0.00 K/mm3 0.0-0.1 N CBC W/AUTO [id number] 12:08:00* Test Item Value Reference Range Interpretation Comments WHITE BLOOD CELL (test code = WBC) K/mm3 4.5-12.5 RED BLOOD CELL (test code = RBC) mill/mm3 4.0-5.8 HEMOGLOBIN (test code = HGB) gram/dL 13.0-17.5 HEMATOCRIT (test code = HCT) % 42.0-52.0 MEAN CELL VOLUME (test code = MCV) fL 80-98 MEAN CELL HGB (test code = MCH) picogram 27.0-33.0 MEAN CELL HGB CONCETRATION (test code = MCHC) gram/dL 33.0-36. 0 RED CELL DISTRIBUTION WIDTH (test code = RDW) % 11.6-16. 2 RED CELL DISTRIBUTION WIDTH SD (test code = RDW-SD) fL 37 .0-51.0 PLATELET COUNT (test code = PLT) 167 K/mm3 150-450 N MEAN PLATELET VOLUME (test code = MPV) fL 6.7-11.0 NEUTROPHIL % (test code = NT%) % 39.0-69.0 IMMATURE GRANULOCYTE % (test code = IG%) % 0.0-5.0 LYMPHOCYTE % (test code = LY%) % 25.0-55.0 MONOCYTE % (test code = MO%) % 0.0-10.0 EOSINOPHIL % (test code = EO%) % 0.0-5.0 BASOPHIL % (test code = BA%) % 0.0-1.0 NEUTROPHIL # (test code = NT#) K/mm3 1.8-7.7 LYMPHOCYTE # (test code = LY#) K/mm3 1.0-5.0 MONOCYTE # (test code = MO#) K/mm3 0-0.8 EOSINOPHIL # (test code = EO#) K/mm3 0.0-0.5 BASOPHIL # (test code = BA#) K/mm3 0.0-0.2 BASIC METABOLIC [id number] 08:06:00* Test Item Value Reference Range Interpretation Comments SODIUM (test code = NA) 138 mmol/L 136-145 N POTASSIUM (test code = K) 3.9 mmol/L 3.5-5.1 N CHLORIDE (test code = CL) 107.0 mmol/L 98-107 N CARBON DIOXIDE (test code = CO2) 22.0 mmol/L 21-32 N ANION GAP (test code = GAP) 12.9 10-20 N GLUCOSE (test code = GLU) 103 mg/dL 74-106 N BLOOD UREA NITROGEN (test code = BUN) 25 mg/dL 7-18 H GLOMERULAR FILTRATION RATE (test code = GFR) 31 mL/min >=60 Estimated GFR by using Modified MDRD formula.Chronic kidney disease is defined as either kidney damageor GFR <60 mL/min/1.73 m2 for >3 months. CREATININE (test code = CREAT) 2.40 mg/dL 0.7-1.3 H BUN/CREATININE RATIO (test code = BUN/CREA) 10.4 10-20 N CALCIUM (test code = CA) 7.4 mg/dL 8.5-10.1 L SAMPLE TO BE COLLECTED BY NURSEBAC METABOLIC [id number] 08:00:00* Test Item Value Reference Range Interpretation Comments SODIUM (test code = NA) 138 mmol/L 136-145 N POTASSIUM (test code = K) 3.9 mmol/L 3.5-5.1 N CHLORIDE (test code = CL) 107.0 mmol/L 98-107 N CARBON DIOXIDE (test code = CO2) mmol/L 21-32 ANION GAP (test code = GAP) 10-20 GLUCOSE (test code = GLU) mg/dL 74-106 BLOOD UREA NITROGEN (test code = BUN) mg/dL 7-18 GLOMERULAR FILTRATION RATE (test code = GFR) mL/min >=60 CREATININE (test code = CREAT) mg/dL 0.7-1.3 BUN/CREATININE RATIO (test code = BUN/CREA) 10-20 CALCIUM (test code = CA) mg/dL 8.5-10.1 SAMPLE TO BE COLLECTED BY NURSEBASIC METABOLIC [id number] 14:51:00* Test Item Value Reference Range Interpretation Comments SODIUM (test code = NA) 139 mmol/L 136-145 N POTASSIUM (test code = K) 3.4 mmol/L 3.5-5.1 L CHLORIDE (test code = CL) 107.0 mmol/L 98-107 N CARBON DIOXIDE (test code = CO2) 22.0 mmol/L 21-32 N ANION GAP (test code = GAP) 13.4 10-20 N GLUCOSE (test code = GLU) 104 mg/dL 74-106 N BLOOD UREA NITROGEN (test code = BUN) 22 mg/dL 7-18 H GLOMERULAR FILTRATION RATE (test code = GFR) 31 mL/min >=60 Estimated GFR by using Modified MDRD formula.Chronic kidney disease is defined as either kidney damageor GFR <60 mL/min/1.73 m2 for >3 months. CREATININE (test code = CREAT) 2.40 mg/dL 0.7-1.3 H BUN/CREATININE RATIO (test code = BUN/CREA) 9.2 10-20 L CALCIUM (test code = CA) 7.3 mg/dL 8.5-10.1 L CALL ME WHEN SHE IS READY TO MEET ME TO DRAW HIM V.LAB. [id number] [facility] [id number] 14:44:00* Test Item Value Reference Range Interpretation Comments SODIUM (test code = NA) 139 mmol/L 136-145 N POTASSIUM (test code = K) 3.4 mmol/L 3.5-5.1 L CHLORIDE (test code = CL) 107.0 mmol/L 98-107 N CARBON DIOXIDE (test code = CO2) mmol/L 21-32 ANION GAP (test code = GAP) 10-20 GLUCOSE (test code = GLU) mg/dL 74-106 BLOOD UREA NITROGEN (test code = BUN) mg/dL 7-18 GLOMERULAR FILTRATION RATE (test code = GFR) mL/min >=60 CREATININE (test code = CREAT) mg/dL 0.7-1.3 BUN/CREATININE RATIO (test code = BUN/CREA) 10-20 CALCIUM (test code = CA) mg/dL 8.5-10.1 CALL ME WHEN SHE IS READY TO MEET ME TO DRAW HIM V.LAB. 1250RN [id number] 1 NOTIFIEDDRUGS OF ABUSE SCREEN [id number] 14:23:00* Test Item Value Reference Range Interpretation Comments UA PH DIPSTICK (test code = LITTLE) 7.0 5.0-8.0 URN COCAINE (test code = COCAURN) NEGATIVE <300 ng/mL URN CANNABINOIDS (test code = CANNABURN) NEGATIVE <50 ng/mL URN AMPHETAMINE (test code = AMPHETURN) NEGATIVE <1000 ng/mL URN BARBITURATE (test code = BARBITURN) NEGATIVE <200 ng/mL URN BENZODIAZEPINE (test code = BENZOURN) POSITIVE <200 ng/mL URN OPIATES (test code = OPIATURN) POSITIVE <300 ng/mL A This test provides only a preliminary test result. A morespecific alternate chemical method must be used in order toobtain a confirmed analytical result. Gas chromatography/mass spectrometry (GC/MS) is thepreferred confirmatory method. Other chemical confirmationmethods are available. Clinical consideration and professional judgment should be applied to any drug of abusetest result, particularly when preliminary positive resultsare used.Unconfirmed screening results must not be used fornon-medical purposes (e.g., employment testing, legaltesting). URN PHENCYCLIDINE (PCP) (test code = PHENCURN) NEGATIVE <25 ng/ mL URN METHADONE (test code = METHAURN) NEGATIVE <300 ng/mL DRUGS OF ABUSE SCREEN [id number] 13:53:00* Test Item Value Reference Range Interpretation Comments UA PH DIPSTICK (test code = LITTLE) 7.0 5.0-8.0 URN COCAINE (test code = COCAURN) <300 ng/mL URN CANNABINOIDS (test code = CANNABURN) <50 ng/mL URN AMPHETAMINE (test code = AMPHETURN) <1000 ng/mL URN BARBITURATE (test code = BARBITURN) <200 ng/mL URN BENZODIAZEPINE (test code = BENZOURN) <200 ng/mL URN OPIATES (test code = OPIATURN) <300 ng/mL URN PHENCYCLIDINE (PCP) (test code = PHENCURN) <25 ng/ mL URN METHADONE (test code = METHAURN) <300 ng/mL CBC W/AUTO [id number] 08:38:00* Test Item Value Reference Range Interpretation Comments WHITE BLOOD CELL (test code = WBC) 5.3 K/mm3 4.5-12.5 N RED BLOOD CELL (test code = RBC) 3.26 mill/mm3 4.0-5.8 L HEMOGLOBIN (test code = HGB) 8.8 gram/dL 13.0-17.5 L HEMATOCRIT (test code = HCT) 28.7 % 42.0-52.0 L MEAN CELL VOLUME (test code = MCV) 88.0 fL 80-98 N MEAN CELL HGB (test code = MCH) 27.0 picogram 27.0-33.0 N MEAN CELL HGB CONCETRATION (test code = MCHC) 30.7 gram/dL 33.0-36. 0 L RED CELL DISTRIBUTION WIDTH (test code = RDW) 16.9 % 11.6-16. 2 H RED CELL DISTRIBUTION WIDTH SD (test code = RDW-SD) 54.4 fL 37 .0-51.0 H PLATELET COUNT (test code = PLT) 186 K/mm3 150-450 N MEAN PLATELET VOLUME (test code = MPV) 9.8 fL 6.7-11.0 N NEUTROPHIL % (test code = NT%) 72.6 % 39.0-69.0 H IMMATURE GRANULOCYTE % (test code = IG%) 0.4 % 0.0-5.0 N LYMPHOCYTE % (test code = LY%) 16.0 % 25.0-55.0 L MONOCYTE % (test code = MO%) 8.9 % 0.0-10.0 N EOSINOPHIL % (test code = EO%) 1.5 % 0.0-5.0 N BASOPHIL % (test code = BA%) 0.6 % 0.0-1.0 N NUCLEATED RBC % (test code = NRBC%) 0.0 % 0-0 N NEUTROPHIL # (test code = NT#) 3.86 K/mm3 1.8-7.7 N IMMATURE GRANULOCYTE # (test code = IG#) 0.02 x10 3/uL 0-0.03 N LYMPHOCYTE # (test code = LY#) 0.85 K/mm3 1.0-5.0 L MONOCYTE # (test code = MO#) 0.47 K/mm3 0-0.8 N EOSINOPHIL # (test code = EO#) 0.08 K/mm3 0.0-0.5 N BASOPHIL # (test code = BA#) 0.03 K/mm3 0.0-0.2 N NUCLEATED RBC # (test code = NRBC#) 0.00 K/mm3 0.0-0.1 N CBC W/AUTO [id number] 08:35:00* Test Item Value Reference Range Interpretation Comments WHITE BLOOD CELL (test code = WBC) K/mm3 4.5-12.5 RED BLOOD CELL (test code = RBC) mill/mm3 4.0-5.8 HEMOGLOBIN (test code = HGB) gram/dL 13.0-17.5 HEMATOCRIT (test code = HCT) % 42.0-52.0 MEAN CELL VOLUME (test code = MCV) fL 80-98 MEAN CELL HGB (test code = MCH) picogram 27.0-33.0 MEAN CELL HGB CONCETRATION (test code = MCHC) gram/dL 33.0-36. 0 RED CELL DISTRIBUTION WIDTH (test code = RDW) % 11.6-16. 2 RED CELL DISTRIBUTION WIDTH SD (test code = RDW-SD) fL 37 .0-51.0 PLATELET COUNT (test code = PLT) 186 K/mm3 150-450 N MEAN PLATELET VOLUME (test code = MPV) fL 6.7-11.0 NEUTROPHIL % (test code = NT%) % 39.0-69.0 IMMATURE GRANULOCYTE % (test code = IG%) % 0.0-5.0 LYMPHOCYTE % (test code = LY%) % 25.0-55.0 MONOCYTE % (test code = MO%) % 0.0-10.0 EOSINOPHIL % (test code = EO%) % 0.0-5.0 BASOPHIL % (test code = BA%) % 0.0-1.0 NEUTROPHIL # (test code = NT#) K/mm3 1.8-7.7 LYMPHOCYTE # (test code = LY#) K/mm3 1.0-5.0 MONOCYTE # (test code = MO#) K/mm3 0-0.8 EOSINOPHIL # (test code = EO#) K/mm3 0.0-0.5 BASOPHIL # (test code = BA#) K/mm3 0.0-0.2 COMPREHENSIVE METABOLIC [id number] 07:49:00* Test Item Value Reference Range Interpretation Comments SODIUM (test code = NA) 137 mmol/L 136-145 N POTASSIUM (test code = K) 3.6 mmol/L 3.5-5.1 N CHLORIDE (test code = CL) 103.0 mmol/L 98-107 N CARBON DIOXIDE (test code = CO2) 27.0 mmol/L 21-32 N ANION GAP (test code = GAP) 10.6 10-20 N GLUCOSE (test code = GLU) 96 mg/dL 74-106 N BLOOD UREA NITROGEN (test code = BUN) 30 mg/dL 7-18 H GLOMERULAR FILTRATION RATE (test code = GFR) 26 mL/min >=60 Estimated GFR by using Modified MDRD formula.Chronic kidney disease is defined as either kidney damageor GFR <60 mL/min/1.73 m2 for >3 months. CREATININE (test code = CREAT) 2.80 mg/dL 0.7-1.3 H BUN/CREATININE RATIO (test code = BUN/CREA) 10.8 10-20 N TOTAL PROTEIN (test code = PROT) 7.5 gram/dL 6.4-8.2 N ALBUMIN (test code = ALB) 2.2 g/dL 3.4-5.0 L GLOBULIN (test code = GLOB) 5.3 gram/dL 2.7-4.2 H ALBUMIN/GLOBULIN RATIO (test code = A/G) 0.4 0.75-1.50 L CALCIUM (test code = CA) 7.3 mg/dL 8.5-10.1 L BILIRUBIN TOTAL (test code = BILT) 0.20 mg/dL 0.0-1.0 N SGOT/AST (test code = AST) 13 IUnit/L 15-37 L SGPT/ALT (test code = ALT) 10 IUnit/L 12-78 L ALKALINE PHOSPHATASE TOTAL (test code = ALKP) 80 IUnit/L 45-117 N Note change in reference range due to change in reagent. BASIC METABOLIC [id number] 14:07:00* Test Item Value Reference Range Interpretation Comments SODIUM (test code = NA) 136 mmol/L 136-145 N POTASSIUM (test code = K) 3.6 mmol/L 3.5-5.1 N CHLORIDE (test code = CL) 104.0 mmol/L 98-107 N CARBON DIOXIDE (test code = CO2) 28.0 mmol/L 21-32 N ANION GAP (test code = GAP) 7.6 10-20 L GLUCOSE (test code = GLU) 100 mg/dL 74-106 N BLOOD UREA NITROGEN (test code = BUN) 33 mg/dL 7-18 H GLOMERULAR FILTRATION RATE (test code = GFR) 24 mL/min >=60 Estimated GFR by using Modified MDRD formula.Chronic kidney disease is defined as either kidney damageor GFR <60 mL/min/1.73 m2 for >3 months. CREATININE (test code = CREAT) 3.00 mg/dL 0.7-1.3 H BUN/CREATININE RATIO (test code = BUN/CREA) 11.1 10-20 N CALCIUM (test code = CA) 7.4 mg/dL 8.5-10.1 L RN [id number] [facility] [id number] 14:00:00* Test Item Value Reference Range Interpretation Comments SODIUM (test code = NA) 136 mmol/L 136-145 N POTASSIUM (test code = K) 3.6 mmol/L 3.5-5.1 N CHLORIDE (test code = CL) 104.0 mmol/L 98-107 N CARBON DIOXIDE (test code = CO2) mmol/L 21-32 ANION GAP (test code = GAP) 10-20 GLUCOSE (test code = GLU) mg/dL 74-106 BLOOD UREA NITROGEN (test code = BUN) mg/dL 7-18 GLOMERULAR FILTRATION RATE (test code = GFR) mL/min >=60 CREATININE (test code = CREAT) mg/dL 0.7-1.3 BUN/CREATININE RATIO (test code = BUN/CREA) 10-20 CALCIUM (test code = CA) mg/dL 8.5-10.1 RN [id number] NOTIFIED- ABDOMEN [id number] 07:29:00 Name: MAXIMO GASTELUM Victorina [facility] : 1985 Age/S: 35 / M Nanda Adam shobha Unit #: [id number] Loc: [place] [id number] Phys: Tristan Ibarra MD Acct: [id number] Dis Date: Status: ADM IN PHONE #: [phone] Exam Date: 03/03/2020 0651 FAX #: [phone] Reason: h/o hep c EXAMS: CPT CODE: [id number] ABDOMEN LTD 02582 HISTORY: Hepatitis C. COMPARISON: CT scan from previous day. Location: [facility]. The liver is hyperechogenic suggesting mild diffuse fibrofatty infiltration which slightly limits evaluation for intrahepatic mass however no discrete lesions. The liver measured 15.2 cm in length. No intra or extrahepatic biliary ductal dilatation. CBD is normal at 3.1 mm. Main portal vein is patent with hepatopedal flow and normal spectral waveform. Gallbladder is not visible. Correlate with surgical history. No ascites. Absent right kidney. The pancreas, liver and the IVC obscured on this exam by overlying bowel gas. IMPRESSION: Limited exam. Fibrofatty infiltrated liver. Gallbladder is not seen. Correlate with surgical history. Absent right kidney. No ascite s. at 0729 Reported and signed by: Ivan Luu M.D. CC: Tristan Ibarra MD; Karo Steele MD Technologist: Nadja Evans [facility] Trnscb Date/Time: 0 (0729) t.SDR.4 Orig Print D/T: S: 03/03/2020 (0732) Probe: PAGE 1 Signed Report COVID 19 INHOUSE [id number] 18:57:00* Test Item Value Reference Range Interpretation Comments COVID 19 INHOUSE AG (test code = [id number]) NEGATIVE - CT ABD PELVIS W/O [id number] 17:46:00 Name: GASTELUMMAXIMO Victorina [facility] : 1985 Age/S: 35 / M [address] [facility] Unit #: [id number] Loc: [place] [address] Phys: Aranza Reyes MACADAM RAKER Acct: [id number] Dis Date: Status: ADM IN PHONE #: [phone] Exam Date: 03/02/2020 1722 FAX #: [phone] Reason: abd pain EXAMS: CPT CODE: [id number] CT ABD PELVIS W/O CONT 72591 EXAM: CT of the abdomen and pelvis without contrast; INFORMATION: Acute kidney injury, UTI; solitary left kidney; status post percutaneous nephrostomy; TECHNIQUE AND FINDINGS: CT dose reduction protocol; 5 mm cuts through the abdomen and pelvis without contrast; Well-positioned nephrostomy catheter within the solitary left kidney. Residual dilatation of portions of the collecting system but the renal pelvis is significantly decompressed. Also seen is an indwelling double pigtail ureteral stent which is probably occluded. A suprapubic tube is in place. There is an enlarged left para-aortic lymph node just inferior to the renal vessels. It measures 3 x 1.6 cm. Additional smaller periaortic lymph nodes are seen. Hepatosplenomegaly and benign calcification in the right lobe of the lorena er. No acute bowel abnormalities. Scans through the lower chest show abnormal densities in the posterior basilar portions of the left lung. Th krystle are new compared with the recent study from February 22, 2020. A minimal p leural effusions associated with this abnormality. IMPRESS ION: 1. Well-positioned left nephrostomy tube with residual moderate calyceal dilatation. 2. Indwelling left ureteral stent, probably oc cluded. 3. Retroperitoneal adenopathy with one definitely enlarged lymph node and several smaller para-aortic lymph nodes. 4. Hepatosple nomegaly without focal lesions, except for a benign calcification in the right lobe of the liver. 5. Mild basilar densities in the left lower lo be. This may represent atelectasis or evolving infiltrate. 6. Ne w small left pleural effusion. Location code: [facility] at 8744 Reported and signed by: Yosvany Ureña M.D. PAGE 1 Signed Report (CONTINUED) Name: MAXIMO GASTELUM [facility] : 1985 Age/S: 35 / M [address] [facility] Unit #: [id number] Loc: [place] [address] Phys: Aranza Reyes MACADAM RAKER Acct: [id number] Dis Date: Status: ADM IN PHONE #: [phone] Exam Date: 03/02/2020 1722 FAX #: [phone] Reason: abd pain EXAMS: CPT CODE: [id number] CT ABD PELVIS W/O CONT 12351 < Continued> CC: Karo Steele MD; Aranza Reyes NP Technologist:Karis Hua RT(R); MAXIMO Olguin CTDI: DLP: Trnscb Date/Time: 03/02/2020 (1745) AzW Orig Print D/T: S: 03/02/2020 (8303) PAGE 2 Signed Report BASIC METABOLIC [id number] 05:59:00* Test Item Value Reference Range Interpretation Comments SODIUM (test code = NA) 139 mmol/L 136-145 N POTASSIUM (test code = K) 4.4 mmol/L 3.5-5.1 N CHLORIDE (test code = CL) 107.0 mmol/L 98-107 N CARBON DIOXIDE (test code = CO2) 24.0 mmol/L 21-32 N ANION GAP (test code = GAP) 12.4 10-20 N GLUCOSE (test code = GLU) 126 mg/dL 74-106 H BLOOD UREA NITROGEN (test code = BUN) 56 mg/dL 7-18 H GLOMERULAR FILTRATION RATE (test code = GFR) 19 mL/min >=60 Estimated GFR by using Modified MDRD formula.Chronic kidney disease is defined as either kidney damageor GFR <60 mL/min/1.73 m2 for >3 months. CREATININE (test code = CREAT) 3.70 mg/dL 0.7-1.3 H BUN/CREATININE RATIO (test code = BUN/CREA) 15.0 10-20 N CALCIUM (test code = CA) 7.5 mg/dL 8.5-10.1 L BASIC METABOLIC [id number] 05:28:00* Test Item Value Reference Range Interpretation Comments SODIUM (test code = NA) 139 mmol/L 136-145 N POTASSIUM (test code = K) 4.4 mmol/L 3.5-5.1 N CHLORIDE (test code = CL) 107.0 mmol/L 98-107 N CARBON DIOXIDE (test code = CO2) mmol/L 21-32 ANION GAP (test code = GAP) 10-20 GLUCOSE (test code = GLU) mg/dL 74-106 BLOOD UREA NITROGEN (test code = BUN) mg/dL 7-18 GLOMERULAR FILTRATION RATE (test code = GFR) mL/min >=60 CREATININE (test code = CREAT) mg/dL 0.7-1.3 BUN/CREATININE RATIO (test code = BUN/CREA) 10-20 CALCIUM (test code = CA) mg/dL 8.5-10.1 BASIC METABOLIC [id number] 06:11:00* Test Item Value Reference Range Interpretation Comments SODIUM (test code = NA) 138 mmol/L 136-145 N POTASSIUM (test code = K) 3.4 mmol/L 3.5-5.1 L CHLORIDE (test code = CL) 107.0 mmol/L 98-107 N CARBON DIOXIDE (test code = CO2) 21.0 mmol/L 21-32 N ANION GAP (test code = GAP) 13.4 10-20 N GLUCOSE (test code = GLU) 171 mg/dL 74-106 H BLOOD UREA NITROGEN (test code = BUN) 58 mg/dL 7-18 H GLOMERULAR FILTRATION RATE (test code = GFR) 17 mL/min >=60 Estimated GFR by using Modified MDRD formula.Chronic kidney disease is defined as either kidney damageor GFR <60 mL/min/1.73 m2 for >3 months. CREATININE (test code = CREAT) 4.10 mg/dL 0.7-1.3 H BUN/CREATININE RATIO (test code = BUN/CREA) 14.1 10-20 N CALCIUM (test code = CA) 7.5 mg/dL 8.5-10.1 L BASIC METABOLIC [id number] 05:59:00* Test Item Value Reference Range Interpretation Comments SODIUM (test code = NA) 138 mmol/L 136-145 N POTASSIUM (test code = K) 3.4 mmol/L 3.5-5.1 L CHLORIDE (test code = CL) 107.0 mmol/L 98-107 N CARBON DIOXIDE (test code = CO2) mmol/L 21-32 ANION GAP (test code = GAP) 10-20 GLUCOSE (test code = GLU) mg/dL 74-106 BLOOD UREA NITROGEN (test code = BUN) mg/dL 7-18 GLOMERULAR FILTRATION RATE (test code = GFR) mL/min >=60 CREATININE (test code = CREAT) mg/dL 0.7-1.3 BUN/CREATININE RATIO (test code = BUN/CREA) 10-20 CALCIUM (test code = CA) mg/dL 8.5-10.1 CBC W/AUTO [id number] 05:38:00* Test Item Value Reference Range Interpretation Comments WHITE BLOOD CELL (test code = WBC) 7.7 K/mm3 4.5-12.5 N RED BLOOD CELL (test code = RBC) 2.97 mill/mm3 4.0-5.8 L HEMOGLOBIN (test code = HGB) 8.1 gram/dL 13.0-17.5 L HEMATOCRIT (test code = HCT) 25.6 % 42.0-52.0 L MEAN CELL VOLUME (test code = MCV) 86.2 fL 80-98 N MEAN CELL HGB (test code = MCH) 27.3 picogram 27.0-33.0 N MEAN CELL HGB CONCETRATION (test code = MCHC) 31.6 gram/dL 33.0-36. 0 L RED CELL DISTRIBUTION WIDTH (test code = RDW) 17.1 % 11.6-16. 2 H RED CELL DISTRIBUTION WIDTH SD (test code = RDW-SD) 53.7 fL 37 .0-51.0 H PLATELET COUNT (test code = PLT) 204 K/mm3 150-450 N MEAN PLATELET VOLUME (test code = MPV) 10.3 fL 6.7-11.0 N NEUTROPHIL % (test code = NT%) 67.2 % 39.0-69.0 N IMMATURE GRANULOCYTE % (test code = IG%) 0.3 % 0.0-5.0 N LYMPHOCYTE % (test code = LY%) 15.3 % 25.0-55.0 L MONOCYTE % (test code = MO%) 14.8 % 0.0-10.0 H EOSINOPHIL % (test code = EO%) 2.0 % 0.0-5.0 N BASOPHIL % (test code = BA%) 0.4 % 0.0-1.0 N NUCLEATED RBC % (test code = NRBC%) 0.0 % 0-0 N NEUTROPHIL # (test code = NT#) 5.17 K/mm3 1.8-7.7 N IMMATURE GRANULOCYTE # (test code = IG#) 0.02 x10 3/uL 0-0.03 N LYMPHOCYTE # (test code = LY#) 1.18 K/mm3 1.0-5.0 N MONOCYTE # (test code = MO#) 1.14 K/mm3 0-0.8 H EOSINOPHIL # (test code = EO#) 0.15 K/mm3 0.0-0.5 N BASOPHIL # (test code = BA#) 0.03 K/mm3 0.0-0.2 N NUCLEATED RBC # (test code = NRBC#) 0.00 K/mm3 0.0-0.1 N MANUAL DIFF REQUIRED (test code = MDIFF) NO - INJ NEPH NEW [id number] 12:56:00 Name: MAXIMO GASTELUM [facility] : 1985 Age/S: 35 / M [address] [facility] Unit #: [id number] Loc: [place] [address] Phys: Karo Steele MD Acct: [id number] Dis Date: Status: ADM IN PHONE #: [phone] Exam Date: 02/29/2020 1135 FAX #: [phone] Reason: /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 (test code = GFR) 46 mL/min >=60 Estimated GFR by using Modified MDRD formula.Chronic kidney disease is defined as either kidney damageor GFR <60 mL/min/1.73 m2 for >3 months. CREATININE (test code = CREAT) 1.70 mg/dL 0.7-1.3 H BUN/CREATININE RATIO (test code = BUN/CREA) 15.5 10-20 N CALCIUM (test code = CA) 8.7 mg/dL 8.5-10.1 N CBC W/AUTO [id number] 07:23:00* Test Item Value Reference Range Interpretation Comments WHITE BLOOD CELL (test code = WBC) 7.7 K/mm3 4.5-12.5 N RED BLOOD CELL (test code = RBC) 3.23 mill/mm3 4.0-5.8 L HEMOGLOBIN (test code = HGB) 8.8 gram/dL 13.0-17.5 L HEMATOCRIT (test code = HCT) 28.8 % 42.0-52.0 L MEAN CELL VOLUME (test code = MCV) 89.2 fL 80-98 N MEAN CELL HGB (test code = MCH) 27.2 picogram 27.0-33.0 N MEAN CELL HGB CONCETRATION (test code = MCHC) 30.6 gram/dL 33.0-36. 0 L RED CELL DISTRIBUTION WIDTH (test code = RDW) 17.8 % 11.6-16. 2 H RED CELL DISTRIBUTION WIDTH SD (test code = RDW-SD) 58.1 fL 37 .0-51.0 H PLATELET COUNT (test code = PLT) 243 K/mm3 150-450 N MEAN PLATELET VOLUME (test code = MPV) 9.7 fL 6.7-11.0 N NEUTROPHIL % (test code = NT%) 56.0 % 39.0-69.0 N IMMATURE GRANULOCYTE % (test code = IG%) 0.4 % 0.0-5.0 N LYMPHOCYTE % (test code = LY%) 29.2 % 25.0-55.0 N MONOCYTE % (test code = MO%) 11.5 % 0.0-10.0 H EOSINOPHIL % (test code = EO%) 2.2 % 0.0-5.0 N BASOPHIL % (test code = BA%) 0.7 % 0.0-1.0 N NUCLEATED RBC % (test code = NRBC%) 0.0 % 0-0 N NEUTROPHIL # (test code = NT#) 4.29 K/mm3 1.8-7.7 N IMMATURE GRANULOCYTE # (test code = IG#) 0.03 x10 3/uL 0-0.03 N LYMPHOCYTE # (test code = LY#) 2.24 K/mm3 1.0-5.0 N MONOCYTE # (test code = MO#) 0.88 K/mm3 0-0.8 H EOSINOPHIL # (test code = EO#) 0.17 K/mm3 0.0-0.5 N BASOPHIL # (test code = BA#) 0.05 K/mm3 0.0-0.2 N NUCLEATED RBC # (test code = NRBC#) 0.00 K/mm3 0.0-0.1 N LACTIC [id number] 21:17:00* Test Item Value Reference Range Interpretation Comments LACTIC ACID (test code = LACT) 1.2 mmol/L 0.4-1.9 N PT IS IN ORANGE ZONE V.LAB.CS1 02/22/20 1305CBC W/AUTO [id number] 21:01:00* Test Item Value Reference Range Interpretation Comments WHITE BLOOD CELL (test code = WBC) 9.3 K/mm3 4.5-12.5 N RED BLOOD CELL (test code = RBC) 3.51 mill/mm3 4.0-5.8 L HEMOGLOBIN (test code = HGB) 9.6 gram/dL 13.0-17.5 L HEMATOCRIT (test code = HCT) 31.2 % 42.0-52.0 L MEAN CELL VOLUME (test code = MCV) 88.9 fL 80-98 N MEAN CELL HGB (test code = MCH) 27.4 picogram 27.0-33.0 N MEAN CELL HGB CONCETRATION (test code = MCHC) 30.8 gram/dL 33.0-36. 0 L RED CELL DISTRIBUTION WIDTH (test code = RDW) 17.7 % 11.6-16. 2 H RED CELL DISTRIBUTION WIDTH SD (test code = RDW-SD) 57.1 fL 37 .0-51.0 H PLATELET COUNT (test code = PLT) 263 K/mm3 150-450 RESULT VERIFIED BY REPEAT ANALYSIS MEAN PLATELET VOLUME (test code = MPV) 9.5 fL 6.7-11.0 N NEUTROPHIL % (test code = NT%) 73.2 % 39.0-69.0 H IMMATURE GRANULOCYTE % (test code = IG%) 0.3 % 0.0-5.0 N LYMPHOCYTE % (test code = LY%) 16.5 % 25.0-55.0 L MONOCYTE % (test code = MO%) 9.0 % 0.0-10.0 N EOSINOPHIL % (test code = EO%) 0.6 % 0.0-5.0 N BASOPHIL % (test code = BA%) 0.4 % 0.0-1.0 N NUCLEATED RBC % (test code = NRBC%) 0.0 % 0-0 N NEUTROPHIL # (test code = NT#) 6.76 K/mm3 1.8-7.7 N IMMATURE GRANULOCYTE # (test code = IG#) 0.03 x10 3/uL 0-0.03 N LYMPHOCYTE # (test code = LY#) 1.53 K/mm3 1.0-5.0 N MONOCYTE # (test code = MO#) 0.83 K/mm3 0-0.8 H EOSINOPHIL # (test code = EO#) 0.06 K/mm3 0.0-0.5 N BASOPHIL # (test code = BA#) 0.04 K/mm3 0.0-0.2 N NUCLEATED RBC # (test code = NRBC#) 0.00 K/mm3 0.0-0.1 N MANUAL DIFF REQUIRED (test code = MDIFF) NO PT IS IN ORANGE ZONE V.LAB.CS1 02/22/20 1304BASIC METABOLIC [id number] 20:35:00* Test Item Value Reference Range Interpretation Comments SODIUM (test code = NA) 134 mmol/L 136-145 L POTASSIUM (test code = K) 3.9 mmol/L 3.5-5.1 N CHLORIDE (test code = CL) 115.0 mmol/L 98-107 H CARBON DIOXIDE (test code = CO2) 12.0 mmol/L 21-32 L ANION GAP (test code = GAP) 10.9 10-20 N GLUCOSE (test code = GLU) 105 mg/dL 74-106 N BLOOD UREA NITROGEN (test code = BUN) 27 mg/dL 7-18 H GLOMERULAR FILTRATION RATE (test code = GFR) 41 mL/min >=60 Estimated GFR by using Modified MDRD formula.Chronic kidney disease is defined as either kidney damageor GFR <60 mL/min/1.73 m2 for >3 months. CREATININE (test code = CREAT) 1.90 mg/dL 0.7-1.3 H BUN/CREATININE RATIO (test code = BUN/CREA) 13.9 10-20 N CALCIUM (test code = CA) 8.9 mg/dL 8.5-10.1 N PT IS IN ORANGE ZONE V.LAB.1 02/22/20 1304BASIC METABOLIC [id number] 20:27:00* Test Item Value Reference Range Interpretation Comments SODIUM (test code = NA) 134 mmol/L 136-145 L POTASSIUM (test code = K) 3.9 mmol/L 3.5-5.1 N CHLORIDE (test code = CL) 115.0 mmol/L 98-107 H CARBON DIOXIDE (test code = CO2) mmol/L 21-32 ANION GAP (test code = GAP) 10-20 GLUCOSE (test code = GLU) mg/dL 74-106 BLOOD UREA NITROGEN (test code = BUN) mg/dL 7-18 GLOMERULAR FILTRATION RATE (test code = GFR) mL/min >=60 CREATININE (test code = CREAT) mg/dL 0.7-1.3 BUN/CREATININE RATIO (test code = BUN/CREA) 10-20 CALCIUM (test code = CA) mg/dL 8.5-10.1 PT IS IN ORANGE ZONE V.LAB.1 02/22/20 1304- CT ABD PELVIS W/O [id number] 09:41:00 Name: MAXIMO GASTELUMAkash [facility] : 1985 Age/S: 35 / M [address] [facility] Unit #: [id number] Loc: [place] [address] Phys: Karo Steele MD Acct: [id number] Dis Date: Status: ADM IN PHONE #: [phone] Exam Date: 02/22/2020913 FAX #: [phone] Reason: ABD PAIN FEVER EXAMS: CPT CODE: [id number] CT ABD PELVIS W/O CONT [id number] EXAM: CT of the abdomen and pelvis without contrast; INFORMATION: Fever, abdominal pain, UTI, acute kidney injury; gastroenteritis; TECHNIQUE AND FINDINGS: 5 mm cuts were obtained through the abdomen and pelvis without contrast; CT renal stone protocol; The patient was positioned in right lateral decubitus/prone position. The right kidney is absent. A double pigtail ureteral stent is seen on the left. It is well-positioned. However there is moderate dilatation of the left renal collecting system. Left kidney is otherwise of normal size and shape; no evidence of stones. A 2 cm hypodensity is seen anteriorly in the left kidney probably representing a cyst. The liver is of normal size and shape. A cluster of small, dense calcifications is seen in the right lobe of the liver. No biliary dilatation. Pancreas, spleen and adrenal glands are unremarkable. No acute bowel abnormalities. A suprapubic cystostomy tube is in place. No pelvic mass lesions. Lung bases show peripheral groundglass opacities in the right lower lobe and middle lobe. The left lung is clear. IMPRESSION: 1. No acute abdominal or pelvic abnormalities. 2. Solitary left kidney with moderate hydronephrosis despite indwelling ureteral stent. This may indicate stent malfunction. 3. Probable small left renal cyst. No evidence of renal stones. 4. Benign-appearing, small calcifications in the right lobe of the liver. 5. Groundglass opacities in the dependent portions of the right lung probably represent atelectatic changes. Location code: [facility] at 0941 Reported and signed by: Yosvany Ureña M.D. PAGE 1 Signed Report (CONTINUED) Name: MAXIMO GASTELUM [facility] : 1985 Age/S: 35 / M [address] [facility] Unit #: [id number] Loc: [place] [address] Phys: Karo Steele MD Acct: [id number] Dis Date: Status: ADM IN PHONE #: [phone] Exam Date: 02/22/2020913 FAX #: [phone] Reason: ABD PAIN FEVER EXAMS: CPT CODE: [id number] ABD PELVIS W/O CONT 20946 <Continued> CC: Karo Steele MD Technologist:Denys Olvera RT(R),(MR),(CT); CTDI: DLP: Trnscb Date/Time: 02/22/2020 (0941) [email or web address] Orig Print D/T: S: 02/22/2020 (4290) PAGE 2 Signed Report URINALYSIS [id number] 19:17:00* Test Item Value Reference Range Interpretation Comments UA COLOR (test code = COLU) YELLOW YELLOW UA APPEARANCE (test code = APPU) HAZY CLEAR A UA GLUCOSE DIPSTICK (test code = DGLUU) NEGATIVE mg/dL NEGATIVE UA BILIRUBIN DIPSTICK (test code = BILU) NEGATIVE NEGATIVE UA KETONE DIPSTICK (test code = KETU) NEGATIVE mg/dL NEGATIVE UA SPECIFIC GRAVITY (test code = SGU) 1.015 1.001-1.035 UA BLOOD DIPSTICK (test code = GABRIELA) 1+ (Small) NEGATIVE A UA PH DIPSTICK (test code = LITTLE) 6.0 5.0-8.0 UA PROTEIN DIPSTICK (test code = PROU) 100 (2+) mg/dL Neg-15 UA UROBILINIOGEN DIPSTICK (test code = URO) 0.2 mg/dL 0.0-0.2 UA NITRITE DIPSTICK (test code = HUMAIRA) POSITIVE NEGATIVE UA LEUKOCYTE ESTERASE W REFLEX (test code = LEUUR) 3+ NEG ATIVE A UA WBC (test code = WBCU) per HPF 0-5 UA RBC (test code = RBCU) per HPF 0-5 UA EPITHELIAL CELLS (test code = EPIU) per HPF Few UA BACTERIA (test code = BACU) per HPF NONE Urine Source? Clean CatchURINALYSIS [id number] 19:17:00* Test Item Value Reference Range Interpretation Comments UA COLOR (test code = COLU) YELLOW YELLOW UA APPEARANCE (test code = APPU) HAZY CLEAR A UA GLUCOSE DIPSTICK (test code = DGLUU) NEGATIVE mg/dL NEGATIVE UA BILIRUBIN DIPSTICK (test code = BILU) NEGATIVE NEGATIVE UA KETONE DIPSTICK (test code = KETU) NEGATIVE mg/dL NEGATIVE UA SPECIFIC GRAVITY (test code = SGU) 1.015 1.001-1.035 UA BLOOD DIPSTICK (test code = GABRIELA) 1+ (Small) NEGATIVE A UA PH DIPSTICK (test code = LITTLE) 6.0 5.0-8.0 UA PROTEIN DIPSTICK (test code = PROU) 100 (2+) mg/dL Neg-15 UA UROBILINIOGEN DIPSTICK (test code = URO) 0.2 mg/dL 0.0-0.2 UA NITRITE DIPSTICK (test code = HUMAIRA) POSITIVE NEGATIVE UA LEUKOCYTE ESTERASE W REFLEX (test code = LEUUR) 3+ NEG ATIVE A UA WBC (test code = WBCU) 51-100 per HPF 0-5 A UA RBC (test code = RBCU) 6-10 #/HPF 0-5 A UA WBC CLUMPS (test code = WBCUCL) >10 /HPF NONE A UA EPITHELIAL CELLS (test code = EPIU) FEW per HPF FEW UA BACTERIA (test code = BACU) FEW #/HPF NONE A UA MUCUS (test code = MUCU) FEW #/LPF FEW Urine Source? Clean CatchCBC W/O [id number] 19:16:00* Test Item Value Reference Range Interpretation Comments WHITE BLOOD CELL (test code = WBC) 12.1 K/mm3 4.5-12.5 N RED BLOOD CELL (test code = RBC) 3.89 mill/mm3 4.0-5.8 L HEMOGLOBIN (test code = HGB) 10.5 gram/dL 13.0-17.5 L HEMATOCRIT (test code = HCT) 34.7 % 42.0-52.0 L MEAN CELL VOLUME (test code = MCV) 89.2 fL 80-98 N MEAN CELL HGB (test code = MCH) 27.0 picogram 27.0-33.0 N MEAN CELL HGB CONCETRATION (test code = MCHC) 30.3 gram/dL 33.0-36. 0 L RED CELL DISTRIBUTION WIDTH (test code = RDW) 17.7 % 11.6-16. 2 H PLATELET COUNT (test code = PLT) 326 K/mm3 150-450 N MEAN PLATELET VOLUME (test code = MPV) 10.5 fL 6.7-11.0 N BASIC METABOLIC [id number] 19:15:00* Test Item Value Reference Range Interpretation Comments SODIUM (test code = NA) 139 mmol/L 136-145 N POTASSIUM (test code = K) 4.0 mmol/L 3.5-5.1 N CHLORIDE (test code = CL) 114.0 mmol/L 98-107 H CARBON DIOXIDE (test code = CO2) 16.0 mmol/L 21-32 L ANION GAP (test code = GAP) 13.0 10-20 N GLUCOSE (test code = GLU) 89 mg/dL 74-106 N BLOOD UREA NITROGEN (test code = BUN) 38 mg/dL 7-18 H GLOMERULAR FILTRATION RATE (test code = GFR) 43 mL/min >=60 Estimated GFR by using Modified MDRD formula.Chronic kidney disease is defined as either kidney damageor GFR <60 mL/min/1.73 m2 for >3 months. CREATININE (test code = CREAT) 1.80 mg/dL 0.7-1.3 H BUN/CREATININE RATIO (test code = BUN/CREA) 20.7 10-20 H CALCIUM (test code = CA) 9.4 mg/dL 8.5-10.1 N HEPATIC FUNCTION [id number] 19:15:00* Test Item Value Reference Range Interpretation Comments TOTAL PROTEIN (test code = PROT) 9.5 gram/dL 6.4-8.2 H ALBUMIN (test code = ALB) 3.1 g/dL 3.4-5.0 L GLOBULIN (test code = GLOB) 6.4 gram/dL 2.7-4.2 H ALBUMIN/GLOBULIN RATIO (test code = A/G) 0.5 0.75-1.50 L BILIRUBIN TOTAL (test code = BILT) 0.20 mg/dL 0.0-1.0 N BILIRUBIN DIRECT (test code = BILD) 0.11 mg/dL 0.0-0.20 N SGOT/AST (test code = AST) 14 IUnit/L 15-37 L SGPT/ALT (test code = ALT) 11 IUnit/L 12-78 L ALKALINE PHOSPHATASE TOTAL (test code = ALKP) 131 IUnit/L 45-117 H Note change in reference range due to change in reagent. [id number] 19:15:00* Test Item Value Reference Range Interpretation Comments LIPASE (test code = LIP) 75 U/L 73.0-393.0 N LACTIC DEHYDROGENASE(LDH)2020-02-21 19:07:00* Test Item Value Reference Range Interpretation Comments LACTIC DEHYDROGENASE(LDH) (test code = LDH) 162 IUnit/L 84-246 N [id number] 19:07:00* Test Item Value Reference Range Interpretation Comments TROPONIN-I (test code = TROPI) <0.015 ng/mL 0-0.045 N [id number] 19:07:00* Test Item Value Reference Range Interpretation Comments FERRITIN (test code = JASMINA) 387 ng/mL 8-388 N BASIC METABOLIC [id number] 19:06:00* Test Item Value Reference Range Interpretation Comments SODIUM (test code = NA) 139 mmol/L 136-145 N POTASSIUM (test code = K) 4.0 mmol/L 3.5-5.1 N CHLORIDE (test code = CL) 114.0 mmol/L 98-107 H CARBON DIOXIDE (test code = CO2) mmol/L 21-32 ANION GAP (test code = GAP) 10-20 GLUCOSE (test code = GLU) mg/dL 74-106 BLOOD UREA NITROGEN (test code = BUN) mg/dL 7-18 GLOMERULAR FILTRATION RATE (test code = GFR) mL/min >=60 CREATININE (test code = CREAT) mg/dL 0.7-1.3 BUN/CREATININE RATIO (test code = BUN/CREA) 10-20 CALCIUM (test code = CA) mg/dL 8.5-10.1 HEPATIC FUNCTION [id number] 19:06:00* Test Item Value Reference Range Interpretation Comments TOTAL PROTEIN (test code = PROT) gram/dL 6.4-8.2 ALBUMIN (test code = ALB) g/dL 3.4-5.0 GLOBULIN (test code = GLOB) gram/dL 2.7-4.2 ALBUMIN/GLOBULIN RATIO (test code = A/G) 0.75-1.50 BILIRUBIN TOTAL (test code = BILT) mg/dL 0.0-1.0 BILIRUBIN DIRECT (test code = BILD) mg/dL 0.0-0.20 SGOT/AST (test code = AST) IUnit/L 15-37 SGPT/ALT (test code = ALT) IUnit/L 12-78 ALKALINE PHOSPHATASE TOTAL (test code = ALKP) IUnit/L 45-117 [id number] 19:06:00* Test Item Value Reference Range Interpretation Comments LIPASE (test code = LIP) U/L 73.0-393.0 C REACTIVE [id number] 19:06:00* Test Item Value Reference Range Interpretation Comments C REACTIVE PROTEIN (test code = CRP) 9.93 mg/dL 0-0.3 H COVID 19 INHOUSE [id number] 19:03:00* Test Item Value Reference Range Interpretation Comments COVID 19 INHOUSE AG (test code = [id number]) NEGATIVE - XR CHEST 1 [id number] 15:45:00 FAX: Dixie Mcmanus [phone] [place]: St: REG Name: MAXIMO MAHER [facility] : [birth year] Age/S: 35/M [address] [facility] Unit #: [id number] Loc: [place] [address] Phys: Dixie Kennedy MD Acct: [id number] Dis Date: Status: REG ER PHONE #: [phone] Exam Date: 02/21/2020 1540 FAX #: [phone] Reason: SHORTNESS OF BREATH EXAMS: CPT CODE: [id number] XR CHEST 1 V 96475 REASON FOR EXAM: SHORTNESS OF BREATH EXAM ORDER DATE: 02/21/2020 3:08 PM Ordering: Dixie Kennedy MD Attending:Dixie Kennedy MD Location:[facility] PROCEDURE: - XR CHEST 1 V COMPARISON: FINDINGS: Portable AP frontal view of the chest obtained at 3:26 PM shows patchy airspace opacity of the bases. There is no evidence of effusion. The heart size is within normal limits. Pulmonary vasculatures are unre markable. IMPRESSION: Patchy atelectasis of the bases at 1545 Reported and signed by: Cosme Rivas M.D. CC: Shantell Kennedy MD Technologist: RT Jabier(Malathi) Trnscrd Date/Time/By: 02/21/2020 (6458) : By: SanjuanaVTL Orig Print D/T: S: 02/21/2020 (6888) PAGE 1 Signed Report Blood culture, aerobic & [id number] 01:03:15* Test Item Value Reference Range Interpretation Comments Blood culture isolate (test code = 600-7) No growth after 5 days of incubation. Specimen InformationSpecimen Source: [facility] [id number] 06:41:39* Test Item Value Reference Range Interpretation Comments Sodium (test code = 2951-2) 137 135- 150 mEq/L Potassium (test code = 2823-3) 4.7 3.5- 5.0 mEq/L Chloride (test code = 2075-0) 107 98- 112 mEq/L CO2 (test code = 8-9) 19 mmol/L 24-31 L Anion gap (test code = 46141-9) 11@ANIO 7- 15 mEq/L BUN (test code = 3094-0) 22 mg/dL 7-18 H Creatinine (test code = 2160-0) 1.70 mg/dL 0.7-1.2 H Glucose (test code = 2345-7) 89 mg/dL 65-100 Calcium (test code = 98772-2) 8.8 mg/dL 8.3-10.2 Lab Interpretation (test code = 93430-2) Abnormal [place] MethodistEstimated [id number] 06:41:38* Test Item Value Reference Range Interpretation Comments Estimated GFR (test code = 5488) 51 mL/min/1.73 m2 A Catergory Units InterpretationG1 >=90 Normal or highG2 60-89 Mildly fwjhmizriG3u 45-59 Mildly to moderately jywuujltwS0o 30-44 Moderately to severely decreasedG4 15-29 Severely decreasedG5 <15 Kidney failureThe eGFR was calculated using the Chronic Kidney Disease Epidemiology Collaboration (CKD-EPI) equation. Interpretation is based on recommendations of the National Kidney Foundation-Kidney Disease Outcomes Quality Initiative (NKF-KDOQI) published in 2014. Lab Interpretation (test code = 67105-8) Abnormal [facility]CBC with platelet and [id number] 06:23:03* Test Item Value Reference Range Interpretation Comments WBC (test code = 74079-5) 5.8 4.2- 11.0 k/uL RBC (test code = 61650-8) 3.66 m/uL 4.04-5.86 L HGB (test code = 718-7) 9.7 g/dL 13-17.3 L HCT (test code = 4544-3) 32.2 % 34-45 L MCV (test code = 787-2) 88.0 fL 80-98 MCH (test code = 785-6) 26.5 pg 27-34 L MCHC (test code = 786-4) 30.1 g/dL 31.5-36.5 L RDW - SD (test code = 25392-8) 60.1 fL 37-51 H MPV (test code = 42362-9) 10.1 fL 7.4-10.4 Platelet count (test code = 20157-4) 384 150- 400 k/uL Nucleated RBC (test code = 57356-8) 0.00 /100 WBC Neutrophils (test code = 70814-0) 50.8 % 36-66 Lymphocytes (test code = 08064-3) 33.9 % 24-44 Monocytes (test code = 57184-8) 9.3 % 0-6 H Eosinophils (test code = 84656-0) 4.7 % 0-6 Basophils (test code = 56785-1) 1.0 % 0-1.2 Immature granulocytes (test code = 17498-6) 0.3 % 0-1 Lab Interpretation (test code = 88540-1) Abnormal [facility] MethodistECG 12 [id number] 18:43:56* Test Item Value Reference Range Interpretation Comments Ventricular rate (test code = 253) 115 Atrial rate (test code = 255) 115 MI interval (test code = 266) 136 QRSD interval (test code = 260) 90 QT interval (test code = 264) 310 QTC interval (test code = 265) 428 P axis 1 (test code = 267) 47 QRS axis 1 (test code = 268) -11 T wave axis (test code = 270) 3 EKG impression (test code = 273) Sinus tachycardia-Oth erwise normal ECG-In automated comparison with ECG of 21-DEC-2019 19:30,-Inverted T waves have replaced nonspecific T wave abnormality in Inferior leads- Bruno DonohueIaibnuqjoWlocgmax7087-65-73 05:36:34* Test Item Value Reference Range Interpretation Comments Troponin (test code = 42317-4) <0.006 0-0.04 In patients suspected of having a myocardial infarction, along with all other appropriate clinical measures and actions including ECG and other diagnostics as appropriate, measure Ultra TnI at 0 hrs and at 3 hrs.Myocardial infarction VERY LIKELYThe 0 hr TnI level is > 0.10 ng/mL Yordy cardial infarction LIKELYThe 0 hr TnI level is > 0.04 ng/mL and 3 hr level is increased or decreased by at least 0.020 ng/mL Myocardi al infarction VERY UNLIKELYBoth the 0 hr and 3 hr TnI levels <= 0.04 ng/mL(within normal limits) OR 0 hr is > 0.04 ng/mL and 3 hr is increased OR decreased by less than 0.020 ng/mL Bruno DonohueLactic acid level, SEPSIS - Now and repeat 2x every 3 hours 2020-01-11 05:08:38* Test Item Value Reference Range Interpretation Comments Lactic acid (test code = 61859-0) 1.3 mmol/L 0.5-2.2 [facility] [id number] 01:53:47Hm Interface, Radiology Results - 01/11/2020 1:56 AM CDTExamination: MRI FOOT WO CONTRAST RIGHTClinical History: hx of osteo worsening heel soreComparison: 12/22/2019Findings:MRI of the right forefoot was performed without gadolinium contrast.Intramedullary kristopher fixation through the distal tibia is noted.There is mild subcutaneous defect noted at the posterior heel of the foot probably r epresenting a small subcutaneous ulcer. There is some mild high T2 and vague low T1 signal noted at the adjacent posterior calcaneus. The appearance is similar to that of the prior study but slightly worse. No discrete fluid collection is s een.Some patchy abnormal marrow signal is noted in the talus but is improved com pared to the prior study. There is some nonspecific fluid around the talus simil ar to that of the prior study.No definite fracture line is seen.Visualized ligam entous and muscular structures are within normal limits.IMPRESSION:1. There is a subcutaneous small defect with some abnormal T2 signal at the posterior heel of the foot probably representing a subcutaneous ulcer. Clinical correlation is re commended.2. There is some abnormal marrow signal or marrow edema noted at the p osterior calcaneus adjacent to the subcutaneous ulcer. This may represent early osteomyelitis.3. Some improvement in the patchy abnormal marrow signal in the ta lina compared to the prior study.FRANCISCO JEFFERSON was informed of these finding s on 01/11/2020 1:53 AM and acknowledged understanding of the findings.[facility]-[id number] MethodistNM Abdomen Pelvis Wo [id number] 00:36:37Addendum by Brandon Bhatt MD on 01/11/2020 1:55 AM ADDENDUM #1 Addendum: Bilateral large sacral decubitus ulcers are noted extending to the bilateral ischial tuberosities. There is no definite cortical bone destruction of the ischial tuberosities to suggest osteomyelitis. No definite fluid c ollection is seen. FRANCISCO JEFFERSON was informed of these findings on 01/11/2020 1:55 AM and acknowledged understanding of the findings. Interface, Radiology Results - 01/11/2020 12:39 AM CDTExamination: CT ABDOMEN PELVIS WO CON TRASTClinical History: multiple abscess glutComparison: None.Findings:CT scans a re performed using radiation dose reduction techniques. Technical factors are e valuated and adjusted to ensure appropriate moderation of exposure. Automated d ose management technology is applied to adjust radiation exposure while achievin g a diagnostic quality image. CT imaging was performed with iterative reconstruc tion techniques and/or automated exposure control to reduce radiation dose.CT sc an of the abdomen and pelvis was performed without intravenous contrast.Capsular retraction and peripheral calcification in the right lobe of the liver is stabl e. The spleen, pancreas, and adrenal glands are unremarkable.The right kidney is not visualized. Left internal ureteral stent is noted with mild to moderate hyd ronephrosis and hydroureter. No ureteral calculus is seen. Lower pole 2 mm calcu lina is seen. Small amount of air is seen in the upper pole calyces.Left lower qu adrant ostomy is noted. Nonspecific but nondilated fluid-filled loops of small b owel are noted but not grossly distended. No bowel thickening or fat stranding i s seen. The appendix is not visualized. No bowel dilatation is seen.Suprapubic b ladder catheter is noted with a decompressed bladder.No free air or fluid is see n.Mild bilateral gluteal subcutaneous fat stranding and skin thickening is seen. No discrete fluid collection is seen.Hyperkyphosis is of the thoracolumbar spine is noted at the thoracolumbar junction. This is unchanged.The visualized lung bases show minimal right base subsegmental atelectasis.IMPRESSION:1. Left clinical nursing intern al ureteral stent with mild to moderate hydronephrosis and hydroureter. Small am ount of air is noted in the upper pole calyces.2. Left nonobstructing intrarenal calculus.3. Nonspecific but nondilated fluid-filled loops of small bowel may be related to mild ileus.4. Bilateral gluteal subcutaneous fat stranding and skin thickening may be related to cellulitis but no discrete fluid collection is seen to suggest abscess at this time.[facility]-[id number] MethodistUrinalysis screen and microscopy, with reflex to luezrsh2899-00-19 23:03:32* Test Item Value Reference Range Interpretation Comments Specimen site (test code = 5165631) Clean catch Color, UA (test code = 5778-6) Sasha Appearance, UA (test code = 5767-9) Turbid Specific gravity, UA (test code = 5811-5) 1.018 1.001-1.035 pH, UA (test code = 5803-2) 6.0 5.0-8.5 Protein, UA (test code = 10983-8) 3+ Negative A Glucose, UA (test code = 32466-1) Negative Negative Ketones, UA (test code = 2514-8) Negative Negative Bilirubin, UA (test code = 5770-3) Negative Negative Blood, UA (test code = 5794-3) Small Negative A Nitrite, UA (test code = 5802-4) Negative Negative Urobilinogen, UA (test code = 69800-3) Negative <2.0 Leukocyte esterase, UA (test code = 5799-2) Large Negative A WBC, UA (test code = 5821-4) >200 0- 1 /HPF H RBC, UA (test code = 68265-8) 19 0- 5 /HPF H Bacteria, UA (test code = 31420-6) Few None seen Yeast, UA (test code = 68224-5) None seen Yeast with pseudohyphae, UA (test code = 76914-9) None seen Lab Interpretation (test code = 65617-2) Abnormal [facility]2020-06-08 23:02:47Francisco Jefferson MD 01/11/2020 8:23 PMCritical CarePerformed by: Francisco Jefferson, [facility] HOSPITALuthorized by: Francisco Jefferson MD Critical care provider statement: Critical care time (minutes): 48 Critical care time was exclusive of: Separately billable procedures and treating other patients Critical care was necessary to treat or prevent imminent or life-threatening deterioration of the following conditions: Sepsis (sirs with multiple sources) Critical care was time spent personally by me on the following activities: Discussions with primary provider, evaluation of patient's response to treatment, examination of patient, obtaining history from patient or surrogate, re-evaluation of patient's condition, pulse oximetry, ordering and review of radiographic studies, ordering and review of laboratory studies, ordering and performing treatments and interventions, discussions with consultants, blood draw for specimens, development of treatment plan with patient or surrogate and review of old charts Lawrence 'yes' if you are taking over critical care for this patient from another provider.: no [facility] MethodistB natriuretic zsxgcqa0094-66-21 22:58:48* Test Item Value Reference Range Interpretation Comments BNP (test code = 04702-8) 11 pg/mL 0-100 [place] MethodistComprehensive metabolic szwhb9868-15-07 22:48:20* Test Item Value Reference Range Interpretation Comments Sodium (test code = 2951-2) 134 135- 150 mEq/L L Potassium (test code = 2823-3) 4.0 3.5- 5.0 mEq/L Chloride (test code = 2075-0) 97 98- 112 mEq/L L CO2 (test code = 8-9) 18 mmol/L 24-31 L Anion gap (test code = 39181-1) 19@ANIO 7- 15 mEq/L H BUN (test code = 3094-0) 25 mg/dL 7-18 H Creatinine (test code = 2160-0) 2.20 mg/dL 0.7-1.2 H Glucose (test code = 2345-7) 106 mg/dL 65-100 H Calcium (test code = 15685-0) 9.7 mg/dL 8.3-10.2 Protein (test code = 2885-2) 9.8 g/dL 6.3-8.3 H Albumin (test code = 1751-7) 2.9 g/dL 3.5-5 L A/G ratio (test code = 1759-0) 0.4 0.7-3.8 L Alkaline phosphatase (test code = 6768-6) 109 U/L 0-129 AST (test code = 1920-8) 13 U/L 10-50 ALT (test code = 1742-6) 8 U/L 5-50 Total bilirubin (test code = 1974-2) 0.3 mg/dL 0.2-1.2 Lab Interpretation (test code = 59881-2) Abnormal [place] MethodistCreatine kinase, total (CPK)2020-01-10 22:48:19* Test Item Value Reference Range Interpretation Comments Creatine kinase (test code = 2157-6) 122 U/L 39-308 [place] MethodistLipase bevyr3922-62-50 22:48:19* Test Item Value Reference Range Interpretation Comments Lipase (test code = 3040-3) 42 U/L 13-60 [place] MethodistBeta tremiabasumcgxo7619-55-28 22:46:45* Test Item Value Reference Range Interpretation Comments Beta hydroxybutyrate (test code = 6873-4) 0.05 mmol/L 0.02-0.27 [facility] CampusistPartial thromboplastin time, xclseqqpq7506-49-04 22:41:37* Test Item Value Reference Range Interpretation Comments PTT (test code = 3173-2) 32.8 23.0- 36.0 sec P TT therapeutic range for unfractionated heparin is61.0-112.0 seconds which corresponds to Anti-Xa0.3-0.7 U/ml. [facility] CampusistProthrombin time with OLU6723-15-01 22:40:45* Test Item Value Reference Range Interpretation Comments Prothrombin time (test code = 5902-2) 13.3 11.5- 14.5 sec INR (test code = 82279-4) 1.01 Fo r patients on anticoagulant therapy, reference ranges below:Indication: INR ValueTreatment of Venous Thrombosis, 2.0-3.0pulmonary emboli, or prophylaxisof a venous thrombosis, or systemic emboli.High dose, high risk patients 3.0-4.5with mechanical valves.NOTE: INR values over 3.0 are sometimes associated withgastrointestinal hemorrhage, especially values over 4.0. [facility] HospitalPOC izlgikw6135-07-22 22:01:09* Test Item Value Reference Range Interpretation Comments POC glucose (test code = 75760-8) 100 mg/dL 65-100 Education And Training Coordinator Name: Magno Frost ID: [id number] [facility] CampusistManual gnfevxhkvxui9921-08-57 06:40:40* Test Item Value Reference Range Interpretation Comments Manual differential (test code = 65444-8) PERFORMED Neutrophils (test code = 60782-5) 38.0 % 36-66 Lymphocytes (test code = 98617-9) 47.0 % 24-44 H Monocytes (test code = 53802-8) 7.0 % 0-6 H Eosinophils (test code = 93150-8) 7.0 % 0-6 H Basophils (test code = 32381-9) 1.0 % 0-1.2 Metamyelocytes (test code = 740-1) 0 % 0-1 Promyelocytes (test code = 783-1) 0 % 0-1 Platelet slide review (test code = 59980-8) Chuyita adequate Anisocytosis (test code = 702-1) 1+ Ovalocytes (test code = 774-0) 1+ Juan cells (test code = 7790-9) 1+ Lab Interpretation (test code = 04572-7) Abnormal [facility] MethodistMagnesium nrhoe1813-96-49 11:20:46* Test Item Value Reference Range Interpretation Comments Magnesium (test code = 27397-2) 1.10 mg/dL 1.6-2.6 L Lab Interpretation (test code = 52106-3) Abnormal [place] MethodistPhosphorus jysom7094-49-28 11:20:46* Test Item Value Reference Range Interpretation Comments Phosphorus (test code = 2777-1) 4.9 mg/dL 2.4-4.5 H Lab Interpretation (test code = 70088-4) Abnormal [place] MethodistOccult blood, ddwpr6008-24-85 02:18:10* Test Item Value Reference Range Interpretation Comments Occult blood, stool (test code = 2334-1) Negative for occult blood. Specimen InformationSpecimen Source: StoolSpecimen Site: Nonpreserved [place] MethodistCreatinine level, urine, hairwr2597-32-80 23:19:38* Test Item Value Reference Range Interpretation Comments Creatinine, urine, random (test code = 69998-0) 22 mg/dL [place] MethodistProtein, urine, thkgik2973-42-49 23:19:38* Test Item Value Reference Range Interpretation Comments Protein, urine random (test code = 2888-6) 60 mg/dL [place] MethodistPotassium, urine, ssvwug1562-82-19 23:13:46* Test Item Value Reference Range Interpretation Comments Potassium, urine, random (test code = 2828-2) 12 mEq/L [facility] MethodistSodium level, urine, plxxlw6813-06-78 23:13:46* Test Item Value Reference Range Interpretation Comments Sodium, urine, random (test code = 58940-0) 79 mEQ/L [place] MethodistHemoglobin & aawznapygk9923-67-12 22:15:56* Test Item Value Reference Range Interpretation Comments HGB (test code = 718-7) 8.2 g/dL 13-17.3 L HCT (test code = 4544-3) 26.8 % 34-45 L Lab Interpretation (test code = 49456-9) Abnormal Bruno DonohueFausto Ankle Wo Contrast Ukrma2262-52-18 20:37:14Hm Interface, Radiology Results 12/22/2019 8:40 PM CDTEXAMINATION: MRI ANKLE WO CONTRAST RIGHTCLINICAL HISTORY: ankle swellingTECHNIQUE: Multiplanar, multisequence MR imaging examination of the right ankle obtained.COMPARISON: X- ray yesterdayIMPRESSION:LIGAMENTS: The distal fibula has been resected. Old fracture deformity of the distal fibular metadiaphysis. The tibiofibular ligame nts are not visualized, with only scarring present. Likewise, the talofibular li gaments are not visualized, replaced by scarring, in conjunction with the resect ion of the distal fibula. Scarring of the remnant calcaneofibular ligament. Sca rring along the deep deltoid ligaments. Tibial spring appears well-maintained. C hronic sprain and scarring of the superomedial band of spring ligament.TENDONS: Mild tenosynovitis and chronic tendinitis of the inframalleolar posterior tibial tendon, with low-grade interstitial partial tearing, reconstituting distally. FHL and FDL tendons are well-maintained. Low-grade interstitial partial tearing of the anterior tibial tendon. The other anterior tendons are well-maintained, a s are the lateral and Achilles tendons.BONE MARROW: Patchy abnormal marrow sign al throughout the talus, and to a lesser [...] is nonspecific, may be due to the pr ior resection or osteitis. No definite osteolysis to indicate osteomyelitis..SIN US TARSI: Synovitis and scarring within sinus Tarsi.PLANTAR FASCIA: IntactPERI ARTICULAR SOFT TISSUES: Diffuse myoedema may be infectious or reactive. Moderat e subcutaneous edema dorsally within the foot. Skin ulceration laterally in the ankle with dressing material. No abscess identified.SUMMARY:1.No definite osteom yelitis. Postop change versus osteitis of the distal fibula, though if there is high concern for osteomyelitis, dual tracer nuclear medicine scan with a 3 phase bone scan and indium-111 labeled white blood cell scan would be more specific.2 .Other findings as [id number]_[id number] MethodistMRI Lower Extremity Wo Contrast Tznki6089-98-67 20:27:22Hm Interface, Radiology Results 12/22/2019 8:30 PM CDTEXAMINATION: MRI LOWER EXTREMITY WO CONTRAST RIGHTCLINICAL HISTORY: possible mckinney osteoTECHNIQUE: Multiplanar, multisequence MR imaging examination of right lower leg, without contrast..COMPARISON: X-ray yesterdayIMPRESSION:1.Sensitivity of the exam is decreased due to metal artifact from the intramedullary nail in the tibia. Motion artifact also compromises evaluation. The distal fibula has been resected.2.There is minimal marrow signal abnormality at the resection end of the fibula, as well as distally in the tibia, though this may be artifactual from the intramedullary nail and or osteitis. No T1 marrow signal abnormality is identified, and no definite cortical osteolysis to indicate osteomyelitis.3.Moderate subcutaneous edema indicative of cellulitis. Diffuse myoedema indicative of infectious versus reactive myositis. Moderate fatty atrophy of the visualized musculature.4.No focal fluid collection to indicate an abscess.SUMMARY:No evidence of osteomyeli tis. Evaluate limited by the intramedullary nail and motion1RM1RAD_PS01[facility] MethodistPrepare RBC, 1 Fhsyx6637-64-32 13:00:00* Test Item Value Reference Range Interpretation Comments Product name (test code = 25) Red Blood Cells -1, Leukored Unit number (test code = 9156904) [id number] Product code (test code = 3092) [id number] Dispense status (test code = 24) Transfused Blood expiration date (test code = 302) [id number] Blood type code (test code = 308) 6200 Blood type (test code = 1314) A POSITIVE Compatibility (test code = 6400) [facility]2020-05-20 07:41:48* Test Item Value Reference Range Interpretation Comments Vancomycin, random (test code = 67809-2) 19.0 ug/mL Therapeutic Ranges: Peak 30.0 - 40.0 ug/mL Trough 10.0 - 20.0 ug/mL Bruno Kelley Gpbxh2672-50-22 17:39:22Hm Interface, Radiology Results 12/21/2019 5:42 PM CDTEXAMINATION: US RENALCLINICAL HISTORY: eval L kidney for hydro - solitary kidneyCOMPARISON: Most recent priorIMPRESSION:1. The right kidney is not identified2. The left kidney measures 16.8 cm in length.3. Cysts: No definite cysts are identified.4. Hydronephrosis.: Severe left-sided hydronephrosis5. Masses: No suspicious masses.6. Renal echogenicity: Mildly increased which could be seen with medical renal disease7. Bladder: There is a Greene catheter in the bladder which is decompressed.8. Calculi: No calculi9. Other Findings:[id number] MethodistXR Ankle 3+ Vw Ttfic1408-97-62 08:38:49Hm Interface, Radiology Results 12/21/2019 8:41 AM CDTEXAMINATION: XR ANKLE 3 VW RIGHTCLINICAL HISTORY: OSteomyelitis suspectedCOMPARISON: Same day right tib-fib x-ray, tib-fib x-ray 02/24/2018IMPRESSION:1.Distal portion of right tibia intramedullary nail with 2 distal screws is seen, with healing of a comminuted spiral fracture of the right tibia. Some callus and osseous bridging is present. Resection of the lateral malleolus, and ankylosis with solid bony union across the syndesmosis, bridged by the distal interlocking screw, with a 1.1 cm ossific fragment present laterally. No acute fracture identified.2.Ankle mortise appears intact. There has been some ossification of the tibiofibular syndesmosis.3.Mild soft tissue swelling is present about the ankle. There are no findings to indicate osteomyelitis.[facility]-[id number] and approved by vice president pharmacy/fellow: Jose Gonzales, Jair Thibodeaux, personally reviewed the images and resident's/fellow's findings and agree with the final report.[place] MethodistXR Tibia Fibula 2 Vw Zmalu8575-90-12 08:22:50Hm Interface, Radiology Results 12/21/2019 8:25 AM CDTProcedure:XR TIBIA FIBULA 2 VW RIGHTREFERRING PHYSICIAN: RYANN IZAGUIRREISTORY: Swelling redness and painCOMPARISON:NoneFINDINGS:No evidence of acute fracture or dislocation is seen. Postsurgical change of ORIF of the tibia is seen. The intramedullary kristopher and cortical screw transfixing a healed fracture deformity of of the distal one third of the tibia is intact. Old fracture deformity of the lateral malleolus is also seen. Osteopenia is noted. The joint spaces are maintained. No osteolytic or osteoblastic lesion is identify.Mild subcutaneous edema of the leg is noted. Regional soft tissue is otherwise unremarkable. No radiopaque foreign body is seen.XR TIBIA FIBULA 2 VW RIGHT acquired.IMPRESSION:Mild subcutaneous edema of the right leg with no radiographic evidence of acute fracture or dislocation of the right tibia or fibula.[id number] MethodistType and screen 2019-12-20 20:32:00* Test Item Value Reference Range Interpretation Comments ABO grouping (test code = 883-9) A Rh type (test code = 92396-3) POS Antibody screen (gel) (test code = 890-4) NEG [place] MethodistSmear wwqmep7566-84-08 19:45:37* Test Item Value Reference Range Interpretation Comments Platelet slide review (test code = 20985-7) Chuyita adequate Anisocytosis (test code = 702-1) 1+ [place] MethodistHepatic function afxtf1587-56-76 19:30:52* Test Item Value Reference Range Interpretation Comments Albumin (test code = 1751-7) 2.4 g/dL 3.5-5 L Total bilirubin (test code = 1974-) 0.3 mg/dL 0.2-1.2 Bilirubin direct (test code = 1967-7) <0.2 0-0.4 Alkaline phosphatase (test code = 6768-6) 82 U/L 0-129 Protein (test code = 2885-2) 8.4 g/dL 6.3-8.3 H ALT (test code = 1742-6) 8 U/L 5-50 AST (test code = 1920-8) 13 U/L 10-50 Lab Interpretation (test code = 27553-8) Abnormal [facility] FJHB6169-31-25 18:43:13Maximo Merchant MD 12/21/2019 2:59 PMCritical CarePerformed by: Maximo Merchant MDAuthorized by: Maximo Merchant MD Critical care provider statement: Critical care time (minutes): 77 Critical care time was exclusive of: Separately billable procedures and treating other patients and teaching time Critical care was necessary to treat or prevent imminent or life-threatening deterioration of the following conditions: Renal failure and sepsis Critical care was time spent personally by me on the following activities: Development of treatment plan with patient or surrogate, discussions with consultants, discussions with primary provider, evaluation of patient's response to treatme nt, examination of patient, obtaining history from patient or surrogate, orderin g and performing treatments and interventions, ordering and review of laboratory studies, ordering and review of radiographic studies, pulse oximetry, re-evalua tion of patient's condition and review of old chartsThe Hospitals Of [facility] CampusistRespiratory pathogen olqzs8766-56-76 11:54:37Respiratory pathogen panelNegative for all pathogens tested:Negative for AdenovirusNegative for Coronavirus SHE1Ckdhahad for Coronavirus CV15Ogjwgjgg for Coronavirus 229ENegative for Coronavirus VF84Tzngqrce for Human MetapneumovirusNegative for Rhinovirus/EnterovirusNegative for Influenza ANegative for Influenza A/H1N egative for Influenza A/G4Igkhytnk for Influenza A/H1-2009Negative for Influenza BNegative for Parainfluenza Virus 1Negative for Parainfluenza Virus 2Negative f or Parainfluenza Virus 3Negative for Parainfluenza Virus 4Negative for Respirato ry Syncytial VirusNegative for Bordetella pertussisNegative for Chlamydophila pn eumoniaeNegative for Mycoplasma pneumoniaeThis real-time PCR assay detects the p resence of nucleic acids (RNA or DNA) for the respiratory pathogens listed. A r esult of "Not-detected" does not exclude the possibility of the presence of one or more pathogens at concentrations less than the detectable limits of the assay . Comment: Specimen InformationSpecimen Source: NaresSpecimen Site: Right [place] [facility] drugs of abuse arooow2483-77-57 04:27:53* Test Item Value Reference Range Interpretation Comments Amphetamine screen, urine (test code = 3349-8) Negative Barbiturate screen, urine (test code = 3377-9) Negative Benzodiazepine screen, urine (test code = 3390-2) Negative Cocaine screen, urine (test code = 3397-7) Negative Methadone metabolite (EDDP), urine (test code = 00666-5) Negative Opiates screen, urine (test code = 3879-4) Negative Oxycodone screen, urine (test code = 03040-9) Negative Phencyclidine screen, urine (test code = 3936-2) Negative Cannabinoid screen, urine (test code = 3427-2) Positive A Drug screen minimum concentration of detectabilityAmphetamines 1000 ng/mLBarbiturates 200 ng/mLBenzodiazepines 300 ng/mLCocaine 300 ng/mLMethadone 300 ng/mLOpiates 300 ng/mLOxycodone 300 ng/mLPhencyclidine 25 ng/mLCannabinoids 50 ng/mLTricyclics 1000 ng/mLResults are from screening tests and should only be used for medical evaluation. Drug testing for legal purposes requires definitive (or confirmatory) testing methods, which are available upon request. Contact the laboratory if definitive testing is required. Lab Interpretation (test code = 32251-3) Abnormal [facility]XR [facility] 1 Vw Sdkceobj9430-08-22 16:57:45Hm Interface, Radiology Results 10/16/2019 5:00 PM CDTXR CHEST 1 PORTABLECLINICAL INDICATION: elevated white countCOMPARISON: 08/07/2019.IMPRESSI ON:The lungs are clear of focal consolidation. The cardiomediastinal silhouette demonstrates a normal contour. There is no pleural effusion or gross pneumothora x. There are no acute osseous abnormalities.[id number] MethodistCT Abdomen Pelvis W Ovtzzitm3540-95-06 00:41:03Hm Interface, Radiology Results 10/16/2019 12:44 AM CDTCT ABDOMEN PELVIS W CONTRASTCLINICAL INDICATION: eval for renal obstruction or complication related to ureter stentsTECHNIQUE: Multidetector CT of the abdomen and pelvis was performed following intravenous administration of iodinated contrast with multiplanar reformats.CT scans are performed using radiation dose reduction techniques (iterative reconstruction and/or automated exposure control). Technical factors are evaluated and adjusted to ensure appropriate moderation of exposure. Autom ated dose management technology is applied to adjust radiation exposure while ac hieving a diagnostic quality image.COMPARISON: CT 08/06/2019. FINDINGS:Lung bases : Dependent subsegmental atelectasis/scarring.Liver: Stable peripheral calcifi cation and capsular retraction of right hepatic lobe.Gallbladder and biliary: G allbladder is nonvisualized. Mild intrahepatic biliary dilatation. Pancreas: No rmal.Spleen: Normal.Gastrointestinal: Left lower quadrant colostomy. Large and small bowel are normal in caliber. Appendix is visualized and appears normal.Adr enals: Normal. Kidneys and ureters: Right kidney is absent. Left double-J uret eral stent in stable position. No hydronephrosis. Tiny focus of gas in the left renal superior pole calyx. Left kidney demonstrates multiple wedge-shaped hypoen hancing areas greatest at superior pole. No renal/perinephric abscess.Urinary bl adder: Suprapubic catheter is present. Small gas in nondependent urinary bladde r.Lymph nodes: No enlarged lymph nodes in the abdomen or pelvis.Peritoneum: No ascites or free air.Vascular: Unremarkable.Reproductive organs: Normal prosta te gland and seminal vesicles.Abdominal wall: Stable ischial decubitus ulcers.Raul baudilio: Stable focal kyphotic deformity at thoracolumbar junction.IMPRESSION:1. Le ft pyelonephritis and/or scarring. No renal/perinephric abscess.2. Gas within le ft renal superior pole calyx and urinary bladder, may be related to urinary trac t infection/emphysematous pyelitis or recent instrumentation.3. Left double-J ur eteral stent present. No hydronephrosis.4. Other stable/incidental findings as a jazzmine.[facility]-[id number] MethodistThyroid stimulating jwofutt0881-51-52 07:12:11 * Test Item Value Reference Range Interpretation Comments TSH (test code = 3016-3) 3.57 0.55- 4.78 uIU/mL Bruno MethodistSurgical pathology wzdxzdu2848-81-52 10:55:08* Test Item Value Reference Range Interpretation Comments Case number (test code = 5513102) [id number] Surgical pathology report (test code = 2255) See link below for PDF Lab Report Result status (test code = 4457736) This is Final Report for [id number] Bruno SxtcmdzkeXsmhcd5376-93-43 10:42:47Alejo Bedolla CRNA 08/14/2019 10:44 AMAirwayPerformed by: Alejo Bedolla CRNAAuthorized by: Timothy Oshea MD Location: ORUrgency: ElectiveDifficult Airway: No Preoxygenated with 100% O2: Yes C-spine Precautions Maintained Throughout: Yes Mask Ventilation: Easy maskFinal Airway Type: Endotracheal airwayFinal Endotracheal Airway: ETTCuffed: Yes Technique Used: Direct laryngoscopyDevices/Methods Used in Placement: Intubating styletInsertion Site: OralBlade Type: MillerLaryngoscope Blade/Videolaryngoscope Blade Size: 2ETT Size (mm): 7.0Cuff at minimum occlusion pressure: Yes Measured from: TeethETT to Teeth (cm): 23Placement Verified by: CO2 detection, direct visualization and equal breath sounds Laryngoscopic view: Grade IIa - partial view of glot tisRapid Sequence Induction (RSI): No Modified RSI: No Number of Attempts at A pproach: 1 No change in dentition, easy OETT insertion, no resistance met [place] MethodistGram [id number] 08:29:09Gram stain resultNo WBC'sOccasional Gram negative rods Comment: Specimen InformationSpecimen Source: UrineSpecimen Site: Clean catch [facility] ([facility]ine)2019-04-19 12:14:32 ROUTINE EEG REPORT Patient Name: Maximo Gastelum Jr. Date of : 1985 Gender: male Date of Procedure: 03/31/2019 IndicationAltered mental status Background activity 6 c/s. Central activity 3-4 c/s. No focal or lateralizing features detected. Awake Recording: was performed, no abnormality detected Sleep Recording: was not performed Hyperventilation: was not performed Photic Stimulation: was performed, no abnormality detected ImpressionMild slowness of background activity compatible with diffuse encephalopathic process. Clinical correlation required for full interpretation of these findings. ICD10 Code/Diagnosis: AMS [place] MethodistUS Guided Vascular [id number] 17:17:29Hm Interface, Radiology Results - 04/07/2019 5:20 PM CDTPerforming RadiologistRorobe Ward MD AssistantsNone Anesthesia TypeLidocaine 1% was used for local anesthetic.Pre Procedure Ttympxdbf21-ntsq-crq male with pneumonia, possible pyelonephritis poor venous access and need for antibioticsPost Procedure DiagnosisStatus post placement of a non tunneled right internal jugular central venous catheter. ProcedurePlacement of a nontunneled right internal jugular vein central venous catheter. TechniqueWritten informed consent was obtained prior to the [...] documentation of vessel patency, needle access with perman ent recording, and reporting are performed followed by placement of a sheath in the right internal jugular vein. A 0.035 inch J-wire was advanced through the mi cropuncture sheath and into the inferior vena cava. The micropuncture sheath was removed; and following dilatation, a 7-Guinean, 15 cm long triple-lumen central venous catheter was then placed over the guidewire. The catheter tip was placed at the right atrium/superior vena cava junction under fluoroscopic guidance. All ports were tested and demonstrate adequate flow. The catheter was secured to the skin using 2-0 silk suture. The patient tolerated the procedure well. Radiation dose Ka,r = 12 mGyComplicationsNone Specimens RemovedNone Estimated Blood Loss Less than 1 mL Blood/Blood Products AdministeredNone Grafts/ImplantsAs described in the above report Impression: Ultrasound and fluoroscopy guided placement of a 7-Guinean, 15 cm long triple lumen central venous catheter via the right inter nal jugular vein, as detailed above. The catheter tip lies at the right atrium/s uperior vena cava junction and is ready for use.[id number] Gnosticist IR Non-Tunneled Central Line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 ams) ug/mL R MULTI-DRUG RESISTANT ORGANISMCONFIRMATORY TEST FOR THIS ORGANISM INDICATES UNUSUAL RESISTANCE. EXTENDEDSPECTRUM BETA-LACTAMASE PRODUCTION. INFECTIOUS DISEASE CONSULT SUGGESTED aztreonam (test code = azm) ug/mL S cefazolin (test code = cz) ug/mL R cefepime (test code = fep) ug/mL S ceftazidime (test code = ann) ug/mL S ceftriaxone1 (test code = ctr) ug/mL R ertapenem (test code = etp) ug/mL S gentamicin (test code = gm) ug/mL R levofloxacin (test code = lev) ug/mL I meropenem (test code = mem) ug/mL S nitrofurantoin (test code = ftn) ug/mL R piperacillin/tazobactam (test code = tzp) ug/mL S tobramycin (test code = tob) ug/mL R trimethoprim/sulfamethoxazole (test code = sxt) ug/mL S Isolate 2 (test code = ISO2) Klebsiella pneumoniae ssp pneumoniae A ampicillin (test code = am) ug/mL R ampicillin/sulbactam (test code = ams) ug/mL R aztreonam (test code = azm) ug/mL R cefazolin (test code = cz) ug/mL R cefepime (test code = fep) ug/mL R ceftazidime (test code = ann) ug/mL R ceftriaxone1 (test code = ctr) ug/mL R ertapenem (test code = etp) ug/mL S gentamicin (test code = gm) ug/mL I levofloxacin (test code = lev) ug/mL R meropenem (test code = mem) ug/mL S nitrofurantoin (test code = ftn) ug/mL R piperacillin/tazobactam (test code = tzp) ug/mL R tobramycin (test code = tob) ug/mL R trimethoprim/sulfamethoxazole (test code = sxt) ug/mL R Isolate 3 (test code = ISO3) Escherichia coli A ampicillin (test code = am) ug/mL R ampicillin/sulbactam (test code = ams) ug/mL R aztreonam (test code = azm) ug/mL R cefazolin (test code = cz) ug/mL R cefepime (test code = fep) ug/mL R ceftazidime (test code = ann) ug/mL R ceftriaxone1 (test code = ctr) ug/mL R ertapenem (test code = etp) ug/mL S gentamicin (test code = gm) ug/mL S levofloxacin (test code = lev) ug/mL R meropenem (test code = mem) ug/mL S nitrofurantoin (test code = ftn) ug/mL S piperacillin/tazobactam (test code = tzp) ug/mL S tobramycin (test code = tob) ug/mL R trimethoprim/sulfamethoxazole (test code = sxt) ug/mL R BASIC METABOLIC [id number] 06:14:00* Test Item Value Reference Range Interpretation Comments GLUCOSE (test code = 06D) 86 mg/dL 75-100 SODIUM (test code = 01A) 140 mmol/L 136-145 POTASSIUM (test code = 01B) 4.7 mmol/L 3.6-5.1 CHLORIDE (test code = 04A) 111 mmol/L 98-107 H CO2 (test code = 02A) 22 mmol/L 22-32 ANION GAP (test code = ANG) 11.7 mmol/L BUN (test code = 05D) 36 mg/dL 7-18 H CREATININE (test code = 03E) 2.7 mg/dL 0.7-1.3 H BUN/CREA (test code = BCR) 13 12-20 CALCIUM (test code = 09D) 8.8 mg/dL 8.3-9.5 CBC (INCLUDES AUTOMATED DIFFERENTIAL)2019-02-17 06:03:00* Test Item Value Reference Range Interpretation Comments WBC (test code = WBC) 9.4 10\\S\\3/uL 4.5-11.0 RBC (test code = RBC) 3.87 10\\S\\6/uL 4.30-5.70 L HGB (test code = HBG) 9.8 g/dL 14.0-18.0 L HCT (test code = HCT) 33.0 % 35.0-46.0 L MCV (test code = MCV) 85.3 fL 80.0-94.0 MCH (test code = MCH) 25.3 pg 27.0-31.0 L MCHC (test code = MCHC) 29.7 g/dL 32.0-36.0 L RDW (test code = RDW) 16.6 % 11.5-14.5 H PLT (test code = PLT) 291 10\\S\\3/uL 130-400 MPV (test code = MPV) 10.4 fL 9.4-12.4 NEUTROP # (test code = NE#) 5.9 10\\S\\3/uL 2.0-8.0 LYMPH # (test code = LY#) 2.3 10\\S\\3/uL 1.2-4.0 MONOCYTE # (test code = MO#) 0.9 10\\S\\3/uL 0.0-1.1 EOSINOPH # (test code = EO#) 0.3 10\\S\\3/uL 0.0-0.7 BASOPHIL # (test code = BA#) 0.0 10\\S\\3/uL 0.0-0.3 IG # (test code = IG#) 0.03 10\\S\\3/uL 0.00-0.06 NRBC # (test code = NRBC#) 0.00 10\\S\\3/uL 0.00-0.01 NEUTROPH % (test code = NE%) 63.0 % 35.0-73.0 LYMPH % (test code = LY%) 24.1 % 20.0-55.0 MONO % (test code = MO%) 9.6 % 2.5-10.0 EOSINOPH % (test code = EO%) 2.7 % 0.0-5.0 BASOPHIL % (test code = BA%) 0.3 % 0.0-2.0 IG % (test code = IG%) 0.3 % 0.0-0.8 NRBC% (test code = NRBC%) 0.0 % 0.0-0.2 MANDIFF (test code = MDIFF) NO NO RBC MORPH (test code = RBCMOR) NORMAL BASIC METABOLIC [id number] 04:58:00* Test Item Value Reference Range Interpretation Comments GLUCOSE (test code = 06D) 90 mg/dL 75-100 SODIUM (test code = 01A) 139 mmol/L 136-145 POTASSIUM (test code = 01B) 4.4 mmol/L 3.6-5.1 CHLORIDE (test code = 04A) 109 mmol/L 98-107 H CO2 (test code = 02A) 24 mmol/L 22-32 ANION GAP (test code = ANG) 10.4 mmol/L BUN (test code = 05D) 25 mg/dL 7-18 H CREATININE (test code = 03E) 1.6 mg/dL 0.7-1.3 H BUN/CREA (test code = BCR) 16 12-20 CALCIUM (test code = 09D) 8.6 mg/dL 8.3-9.5 CBC (INCLUDES AUTOMATED DIFFERENTIAL)2019-02-16 04:51:00* Test Item Value Reference Range Interpretation Comments WBC (test code = WBC) 6.2 10\\S\\3/uL 4.5-11.0 RBC (test code = RBC) 3.52 10\\S\\6/uL 4.30-5.70 L HGB (test code = HBG) 9.1 g/dL 14.0-18.0 L HCT (test code = HCT) 30.3 % 35.0-46.0 L MCV (test code = MCV) 86.1 fL 80.0-94.0 MCH (test code = MCH) 25.9 pg 27.0-31.0 L MCHC (test code = MCHC) 30.0 g/dL 32.0-36.0 L RDW (test code = RDW) 16.0 % 11.5-14.5 H PLT (test code = PLT) 288 10\\S\\3/uL 130-400 MPV (test code = MPV) 10.3 fL 9.4-12.4 NEUTROP # (test code = NE#) 3.2 10\\S\\3/uL 2.0-8.0 LYMPH # (test code = LY#) 2.2 10\\S\\3/uL 1.2-4.0 MONOCYTE # (test code = MO#) 0.6 10\\S\\3/uL 0.0-1.1 EOSINOPH # (test code = EO#) 0.2 10\\S\\3/uL 0.0-0.7 BASOPHIL # (test code = BA#) 0.1 10\\S\\3/uL 0.0-0.3 IG # (test code = IG#) 0.01 10\\S\\3/uL 0.00-0.06 NRBC # (test code = NRBC#) 0.00 10\\S\\3/uL 0.00-0.01 NEUTROPH % (test code = NE%) 51.0 % 35.0-73.0 LYMPH % (test code = LY%) 35.4 % 20.0-55.0 MONO % (test code = MO%) 8.9 % 2.5-10.0 EOSINOPH % (test code = EO%) 3.7 % 0.0-5.0 BASOPHIL % (test code = BA%) 0.8 % 0.0-2.0 IG % (test code = IG%) 0.2 % 0.0-0.8 NRBC% (test code = NRBC%) 0.0 % 0.0-0.2 MANDIFF (test code = MDIFF) NO NO RBC MORPH (test code = RBCMOR) NORMAL U/S [id number] 17:04:20EXAMINATION: Ultrasound and Fluoroscopic-guided Nontunneled central venouscatheter placement LOCATION: [facility].HISTORY: Central venous cannula insertionSEDATION: The patient did not require conscious sedation for the procedure.RADIATION DOSE: FLUOROSCOPY TIME:27.8 seconds with 1 fluoroscopic image.ANTIBIOTICS: None. Not indicated.TECHNIQUE: The risks, benefits, and alternatives were discussed and informedconsent was obtained. Prior to beginning the procedure, [place] Protocol wasused to confirm the patient's identity and planned procedure. Maximum sterilebarriers including cap, mask, hand hygiene, sterile gloves, sterile gown, largesterile drape and cutaneous antisepsis were used.The skin over the right internal jugular vein was sterilely prepped, draped,and infiltrated with lidocaine.Prior to the procedure, the target vessel was evaluated by ultrasound. Animage of the patent vessel was recorded and saved to PACS. After sterile prep,this vessel was accessed with a micropuncture needle using real-time ultrasoundguidance. A guidewire and catheter were then passed centrally using fluoroscopicguidance. The intravascular length from the access site to the right atrium wasassessed.After dilating the tract, a non-tunneled, triple lumen central venous catheterwas inserted over the catheter. The catheter was flushed and secured in place. A st erile dressing was applied. ESTIMATED BLOOD LOSS: Less than 30 milliliters.COMP LICATIONS: None.DISCHARGED TO: Inpatient unit.FINDINGS: Ultrasound demonstrates a patent right internal jugular vein.The final fluoroscopic image demonstrates t he catheter with its tip at thecavoatrial junction / upper right atrium. No com plications are seen.IMPRESSION: Successful non-tunneled central venous catheter placement via theright internal jugular vein.PLAN: The catheter is ready for imm ediate use. When treatment is completed,this catheter can be removed at the bed side according to standard hospitalprotocol.XR CNTRL LN [id number] 17:04:20EXAMINATION: Ultrasound and Fluoroscopic-guided Nontunneled central venouscatheter placement LOCATION: [facility].HISTORY: Central venous cannula insertionSEDATION: The patient did not require conscious sedation for the procedure.RADIATION DOSE: FLUOROSCOPY TIME:27.8 seconds with 1 fluoroscopic image.ANTIBIOTICS: None. Not indicated.TECHNIQUE: The risks, benefits, and alternatives were discussed and informedconsent was obtained. Prior to beginning the procedure, Hooven Protocol wasused to confirm the patient's identity and planned procedure. Maximum sterilebarriers including cap, mask, hand hygiene, sterile gloves, sterile gown, largesterile drape and cutaneous antisepsis were used.The skin over the right internal jugular vein was sterilely prepped, draped,and infiltrated with lidocaine.Prior to the procedure, the target vessel was evaluated by ultrasound. Animage of the patent vessel was recorded and saved to PACS. After sterile prep,this vessel was accessed with a micropuncture needle using real-time ultrasoundguidance. A guidewire and catheter were then passed centrally using fluoroscopicguidance. The intravascular length from the access site to the right atrium wasassessed.After dilating the tract, a non-tunneled, triple lumen central venous catheterwas inserted over the catheter. The catheter was flushed and secured in place. A st erile dressing was applied. ESTIMATED BLOOD LOSS: Less than 30 milliliters.COMP LICATIONS: None.DISCHARGED TO: Inpatient unit.FINDINGS: Ultrasound demonstrates a patent right internal jugular vein.The final fluoroscopic image demonstrates t he catheter with its tip at thecavoatrial junction / upper right atrium. No com plications are seen.IMPRESSION: Successful non-tunneled central venous catheter placement via theright internal jugular vein.PLAN: The catheter is ready for imm ediate use. When treatment is completed,this catheter can be removed at the bed side according to standard hospitalprotocol.VANCOMYCIN [id number] 12:40:00 * Test Item Value Reference Range Interpretation Comments VANC RANDOM (test code = VANCR) 22.4 ug/dL 10.0-20.0 BASIC METABOLIC [id number] 12:29:00* Test Item Value Reference Range Interpretation Comments GLUCOSE (test code = 06D) 84 mg/dL 75-100 SODIUM (test code = 01A) 141 mmol/L 136-145 POTASSIUM (test code = 01B) 4.8 mmol/L 3.6-5.1 CHLORIDE (test code = 04A) 113 mmol/L 98-107 H CO2 (test code = 02A) 24 mmol/L 22-32 ANION GAP (test code = ANG) 8.8 mmol/L BUN (test code = 05D) 20 mg/dL 7-18 H CREATININE (test code = 03E) 1.5 mg/dL 0.7-1.3 H BUN/CREA (test code = BCR) 14 12-20 CALCIUM (test code = 09D) 9.0 mg/dL 8.3-9.5 WOUND/SKIN/ABS.&GRAMSTAIN [id number] 09:20:00* Test Item Value Reference Range Interpretation Comments Direct Exam (test code = DE1) FEW WHITE BLOOD CELLS SEEN Direct Exam (test code = DE2) FEW GRAM POSITIVE COCCI Isolate 1 (test code = ISO1) Staphylococcus aureus A ciprofloxacin (test code = cip) ug/mL S clindamycin (test code = cc) ug/mL daptomycin (test code = dap) ug/mL S doxycycline (test code = dx) ug/mL S erythromycin (test code = e) ug/mL R gentamicin (test code = gm) ug/mL S levofloxacin (test code = lev) ug/mL S linezolid (test code = lnz) ug/mL S moxifloxacin (test code = mxf) ug/mL S oxacillin (test code = ox1) ug/mL S rifampicin (test code = rif) ug/mL S tetracycline (test code = tet) ug/mL S tigecycline (test code = tgc) ug/mL S trimethoprim/sulfamethoxazole (test code = sxt) ug/mL S vancomycin (test code = va) ug/mL S Isolate 2 (test code = ISO2) Pseudomonas aeruginosa A cefazolin (test code = cz) ug/mL R cefepime (test code = fep) ug/mL S ceftazidime (test code = ann) ug/mL S gentamicin (test code = gm) ug/mL S levofloxacin (test code = lev) ug/mL S meropenem (test code = mem) ug/mL S piperacillin/tazobactam (test code = tzp) ug/mL S tobramycin (test code = tob) ug/mL S Isolate 3 (test code = ISO3) Proteus mirabilis A ampicillin (test code = am) ug/mL S aztreonam (test code = azm) ug/mL S cefazolin (test code = cz) ug/mL S cefepime (test code = fep) ug/mL S ceftazidime (test code = ann) ug/mL S ceftriaxone1 (test code = ctr) ug/mL S ertapenem (test code = etp) ug/mL S gentamicin (test code = gm) ug/mL S levofloxacin (test code = lev) ug/mL S meropenem (test code = mem) ug/mL S piperacillin/tazobactam (test code = tzp) ug/mL S tobramycin (test code = tob) ug/mL S trimethoprim/sulfamethoxazole (test code = sxt) ug/mL S VANCOMYCIN [id number] 21:37:00* Test Item Value Reference Range Interpretation Comments VANC MARNI (test code = VANCT) 32.9 ug/dL 10.0-20.0 HH XR ABDOMEN 1 VIEW [id number] 13:41:17Abdomen, one viewLocation Code: K4Szwuwtek history: ConstipationComments: Large amount of stool is present throughout the colon. There are nosignificantly dilated loops of bowel proximally. There is no visualizedabnormal calcification. Left ureteral stent noted. The visualized osseousstructures are intact.Impression: Large amount stool throughout colon suggesting constipation. LACTIC [id number] 16:22:00* Test Item Value Reference Range Interpretation Comments LACTIC ACD (test code = LA) 1.0 mmol/L 0.4-2.0 BASIC METABOLIC [id number] 05:39:00* Test Item Value Reference Range Interpretation Comments GLUCOSE (test code = 06D) 109 mg/dL 75-100 H SODIUM (test code = 01A) 140 mmol/L 136-145 POTASSIUM (test code = 01B) 4.3 mmol/L 3.6-5.1 CHLORIDE (test code = 04A) 111 mmol/L 98-107 H CO2 (test code = 02A) 21 mmol/L 22-32 L ANION GAP (test code = ANG) 12.3 mmol/L BUN (test code = 05D) 26 mg/dL 7-18 H CREATININE (test code = 03E) 1.4 mg/dL 0.7-1.3 H BUN/CREA (test code = BCR) 19 12-20 CALCIUM (test code = 09D) 8.7 mg/dL 8.3-9.5 CBC (INCLUDES AUTOMATED DIFFERENTIAL)2019-02-13 05:25:00* Test Item Value Reference Range Interpretation Comments WBC (test code = WBC) 6.2 10\\S\\3/uL 4.5-11.0 RBC (test code = RBC) 3.38 10\\S\\6/uL 4.30-5.70 L HGB (test code = HBG) 8.7 g/dL 14.0-18.0 L HCT (test code = HCT) 28.7 % 35.0-46.0 L MCV (test code = MCV) 84.9 fL 80.0-94.0 MCH (test code = MCH) 25.7 pg 27.0-31.0 L MCHC (test code = MCHC) 30.3 g/dL 32.0-36.0 L RDW (test code = RDW) 15.9 % 11.5-14.5 H PLT (test code = PLT) 314 10\\S\\3/uL 130-400 MPV (test code = MPV) 10.4 fL 9.4-12.4 NEUTROP # (test code = NE#) 3.2 10\\S\\3/uL 2.0-8.0 LYMPH # (test code = LY#) 2.1 10\\S\\3/uL 1.2-4.0 MONOCYTE # (test code = MO#) 0.6 10\\S\\3/uL 0.0-1.1 EOSINOPH # (test code = EO#) 0.2 10\\S\\3/uL 0.0-0.7 BASOPHIL # (test code = BA#) 0.0 10\\S\\3/uL 0.0-0.3 IG # (test code = IG#) 0.03 10\\S\\3/uL 0.00-0.06 NRBC # (test code = NRBC#) 0.00 10\\S\\3/uL 0.00-0.01 NEUTROPH % (test code = NE%) 51.0 % 35.0-73.0 LYMPH % (test code = LY%) 34.3 % 20.0-55.0 MONO % (test code = MO%) 9.8 % 2.5-10.0 EOSINOPH % (test code = EO%) 3.9 % 0.0-5.0 BASOPHIL % (test code = BA%) 0.5 % 0.0-2.0 IG % (test code = IG%) 0.5 % 0.0-0.8 NRBC% (test code = NRBC%) 0.0 % 0.0-0.2 MANDIFF (test code = MDIFF) NO NO RBC MORPH (test code = RBCMOR) NORMAL URINALYSIS WITH [id number] 21:22:00* Test Item Value Reference Range Interpretation Comments COLOR (test code = COLU) YELLOW YELLOW CLARITY (test code = CLA) CLOUDY CLEAR A GLUCOSE UR (test code = UA GLUCOSE) NEGATIVE NEGATIVE BILI UR (test code = BILE) NEGATIVE NEGATIVE KETONES UR (test code = JAVIER) NEGATIVE NEGATIVE SP GRAVITY (test code = SPGR) 1.010 1.005-1.030 PH UR (test code = PH) 6.5 4.5-8.0 PROTEIN UR (test code = PU) 1+ NEGATIVE A UROBIL UR (test code = UROQ) 0.2 EU/dL 0.2-1.0 NITRITE UR (test code = NITRITE) POSITIVE NEGATIVE A BLOOD UR (test code = UA BLOOD) 1+ NEGATIVE A LEUK ES UR (test code = LEUK) 3+ NEGATIVE A WBC UR (test code = UWBC) >100 /HPF 0-3 H RBC UR (test code = URBC) 5 /HPF 0-2 H EPITH UR (test code = UEPC) NONE /LPF NONE BACTERIA UR (test code = UBACT) MODERATE /HPF NONE A CAST UR (test code = CAST) /LPF NONE CRYSTAL UR (test code = CRYU) / LPF NONE MUCUS UR (test code = MUC) / HPF NONE AMORPH UR (test code = RAPHAEL) / HPF NONE TRICH UR (test code = UTRICH) /HPF NONE YEAST UR (test code = UY) /HPF NONE SPERM UR (test code = USPERM) /HPF NONE DRUGS OF [id number] 21:18:00* Test Item Value Reference Range Interpretation Comments DRUG SCRN (test code = HDOA) URINE DRUG SCREEN This is an unconfirmed screening result and should not be used for non-medical purposes CANNABINOD (test code = 88C) POSITIVE NEGATIVE A AMPHETAMINE (test code = 84A) Negative NEGATIVE BENZODIAZP (test code = 86A) POSITIVE NEGATIVE A BARBITURAT (test code = 85A) Negative NEGATIVE OPIATES (test code = 92B) Negative NEGATIVE COCAINE (test code = 87A) Negative NEGATIVE PHENCYCLID (test code = 66A) Negative NEGATIVE METHADONE (test code = 64A) Negative NEGATIVE DOAH (test code = DOAH.) URI NE DRUG SCREEN Cut-off values are as follows: Cannabinoids 50 ng/mL Cocaine 300 ng/mL Amphetamines 1000 ng/mL Phencyclidine 25 ng/mL Benzodiazepines 200 ng.mL Methadone 300 ng/mL Barbiturates 200 ng/mL Opiates 2000 ng/mL ERYTHROCYTE SED [id number] 20:32:00* Test Item Value Reference Range Interpretation Comments SED RATE (test code = SEDR) 87 mm/hr 0-10 H BRAIN NATRIURETIC [id number] 20:03:00* Test Item Value Reference Range Interpretation Comments proBNP (test code = PBNP) 458 pg/mL 0-125 H LACTIC [id number] 20:01:00* Test Item Value Reference Range Interpretation Comments LACTIC ACD (test code = LA) 0.8 mmol/L 0.4-2.0 CARDIAC [id number] 19:59:00* Test Item Value Reference Range Interpretation Comments TROPONIN I (test code = A84) <0.015 ng/mL 0.000-0.045 COMPREHENSIVE METABOLIC [id number] 19:59:00* Test Item Value Reference Range Interpretation Comments GLUCOSE (test code = 06D) 78 mg/dL 75-100 SODIUM (test code = 01A) 138 mmol/L 136-145 POTASSIUM (test code = 01B) 4.5 mmol/L 3.6-5.1 CHLORIDE (test code = 04A) 107 mmol/L 98-107 CO2 (test code = 02A) 23 mmol/L 22-32 ANION GAP (test code = ANG) 12.5 mmol/L BUN (test code = 05D) 28 mg/dL 7-18 H CREATININE (test code = 03E) 1.6 mg/dL 0.7-1.3 H BUN/CREA (test code = BCR) 18 12-20 CALCIUM (test code = 09D) 9.1 mg/dL 8.3-9.5 BILI TOTAL (test code = 11A) 0.3 mg/dL 0.2-1.0 PROTEIN (test code = 07D) 8.1 g/dL 6.4-8.2 ALBUMIN (test code = 08D) 3.1 g/dL 3.5-4.8 L GLOBULIN (test code = GLB) 5.0 g/dL 1.5-3.8 H ALB/GLOB (test code = AGRR) 0.6 1.0-2.6 L ALK PHOS (test code = 35A) 165 IU/L 42-121 H AST (test code = 30A) 19 IU/L <=42 ALT (test code = 31A) 31 IU/L <=78 ALCOHOL BLOOD (ETOH)2019-02-12 19:56:00* Test Item Value Reference Range Interpretation Comments ETOH (test code = HALC) ETHANOL The res ult is to be used only for medical purposes ALCOHOL (test code = 56A) <10 mg/dL <=10 AMYLASE AND [id number] 19:55:00* Test Item Value Reference Range Interpretation Comments AMYLASE (test code = 10A) 30 U/L 28-100 LIPASE (test code = 60A) 56 IU/L 73-393 L PHOSPHORUS (P04)2019-02-12 19:55:00* Test Item Value Reference Range Interpretation Comments PHOSPHORUS (test code = 43D) 2.5 mg/dL 2.7-4.6 L [id number] 19:53:00* Test Item Value Reference Range Interpretation Comments MAGNESIUM (test code = 48A) 1.7 mg/dL 1.8-2.4 L PRO TIME AND [id number] 19:53:00* Test Item Value Reference Range Interpretation Comments PT (test code = TT) 12.4 s 9.8-13.6 INR (test code = INR) 1.1 INRH (test code = INRH) SUGGESTED THERAPEU TIC RANGE FOR INR: 2.5 - 3.5 For Patients with Prosthetic Valves or Patients with recurrent Thromboembolic Events 2.0 - 3.0 For Most Other Applications PTT (test code = PTT) 33.5 s 20.2-38.0 PTTH (test code = PTTH) To monitor the effectiv eness of heparin, we offer the Anti-Xa (Heparin Assay). It can be used for either unfractionated or LMW Heparin. Order Code is ANTI-XA CBC (INCLUDES AUTOMATED DIFFERENTIAL)2019-02-12 19:47:00* Test Item Value Reference Range Interpretation Comments WBC (test code = WBC) 8.7 10\\S\\3/uL 4.5-11.0 RBC (test code = RBC) 3.97 10\\S\\6/uL 4.30-5.70 L HGB (test code = HBG) 10.2 g/dL 14.0-18.0 L HCT (test code = HCT) 33.4 % 35.0-46.0 L MCV (test code = MCV) 84.1 fL 80.0-94.0 MCH (test code = MCH) 25.7 pg 27.0-31.0 L MCHC (test code = MCHC) 30.5 g/dL 32.0-36.0 L RDW (test code = RDW) 16.1 % 11.5-14.5 H PLT (test code = PLT) 376 10\\S\\3/uL 130-400 MPV (test code = MPV) 10.8 fL 9.4-12.4 NEUTROP # (test code = NE#) 5.7 10\\S\\3/uL 2.0-8.0 LYMPH # (test code = LY#) 2.0 10\\S\\3/uL 1.2-4.0 MONOCYTE # (test code = MO#) 0.6 10\\S\\3/uL 0.0-1.1 EOSINOPH # (test code = EO#) 0.3 10\\S\\3/uL 0.0-0.7 BASOPHIL # (test code = BA#) 0.0 10\\S\\3/uL 0.0-0.3 IG # (test code = IG#) 0.03 10\\S\\3/uL 0.00-0.06 NRBC # (test code = NRBC#) 0.00 10\\S\\3/uL 0.00-0.01 NEUTROPH % (test code = NE%) 66.3 % 35.0-73.0 LYMPH % (test code = LY%) 23.1 % 20.0-55.0 MONO % (test code = MO%) 6.7 % 2.5-10.0 EOSINOPH % (test code = EO%) 3.1 % 0.0-5.0 BASOPHIL % (test code = BA%) 0.5 % 0.0-2.0 IG % (test code = IG%) 0.3 % 0.0-0.8 NRBC% (test code = NRBC%) 0.0 % 0.0-0.2 MANDIFF (test code = MDIFF) NO NO RBC MORPH (test code = RBCMOR) NORMAL XR PELVIS AP 1 [id number] 19:02:57EXAM: Right hip series, 2 views; left hip series, 2 views; pelvis x-ray, oneview; right ankle series, 3 views; and right foot series, 3 viewsDictation location: [id number]: Acute infectious diseaseCOMPARISON: None.DISCUSSION:Pelvis: A frontal view of the pelvis is submitted. No displaced fracture isseen. A partially visualized left double-J ureteral stent is noted. Nosignificant hip osteoarthrosis is seen.Left hip: Frontal and frog-leg views of the left hip are submitted. There isexternal artifact overlying the left hip, possibly related to an ostomy. Nofracture, dislocation, or lytic or blastic lesions are identified. There is nohip osteoarthrosis.Right hip: Frontal and frog-leg views of the right hip are mcgowan bmitted. Nofracture, dislocation, or lytic or blastic lesions are identified. Th ere isheterotopic ossification at the origin of the right hip hamstring tendon,c ompatible with remote hamstring injury. No hip osteoarthrosis is seen.Right ankl e: Frontal, oblique, lateral views of the right ankle are submitted.There is par tially visualized tibial ORIF hardware. The tibial fracture appearshealed or mos tly healed. No hardware failure or loosening is seen. There is adistal fibular m etadiaphyseal fracture; healing, if present, appearsincomplete. No acute fractur e is seen. 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 There is truncation of the tuft of th e distal first phalanx, theappearance of which suggests prior surgery rather shimon n acute erosion. Findingssuggest previous hammertoe surgery of the second DIP cherry int; correlation withoperative history is needed. There has been previous amputa tion of the fifthray to the level of the proximal fifth metatarsal diaphysis. No fracture orbony erosion is seen.IMPRESSION:1. No acute bony abnormalities the p shaniqua, hips, right ankle, or right foot.2. Previous ORIF of a partially visualiz ed tibial fracture, which is healed ormostly healed. A remote distal fibular met adiaphyseal fracture is noted;healing, if present, appears incomplete.3. Truncat ion of the tuft of the distal first phalanx suggests prior surgeryrather than ac kotlik erosion. Findings also suggest previous hammertoe surgery ofthe second DIP j oint. Correlation with operative history is needed.4. Previous amputation of mos t of the fifth ray to the level of the base of thefifth metatarsal.XR HIP RIGHT UNILATERAL 2 [id number] 19:02:57EXAM: Right hip series, 2 views; left hip series, 2 views; pelvis x-ray, oneview; right ankle series, 3 views; and right foot series, 3 viewsDictation location: [id number]: Acute infectious diseaseCOMPARISON: None.DISCUSSION:Pelvis: A frontal view of the pelvis is submitted. No displaced fracture isseen. A partially visualized left double-J ureteral stent is noted. Nosignificant hip osteoarthrosis is seen.Left hip: Frontal and frog-leg views of the left hip are submitted. There isexternal artifact overlying the left hip, possibly related to an ostomy. Nofracture, dislocation, or lytic or blastic lesions are identified. There is nohip osteoarthrosis.Right hip: Frontal and frog-leg views of the right hip are mcgowan bmitted. Nofracture, dislocation, or lytic or blastic lesions are identified. Th ere isheterotopic ossification at the origin of the right hip hamstring tendon,c ompatible with remote hamstring injury. No hip osteoarthrosis is seen.Right ankl e: Frontal, oblique, lateral views of the right ankle are submitted.There is par tially visualized tibial ORIF hardware. The tibial fracture appearshealed or mos tly healed. No hardware failure or loosening is seen. There is adistal fibular m etadiaphyseal fracture; healing, if present, appearsincomplete. No acute fractur e is seen. 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 There is truncation of the tuft of th e distal first phalanx, theappearance of which suggests prior surgery rather shimon n acute erosion. Findingssuggest previous hammertoe surgery of the second DIP cherry int; correlation withoperative history is needed. There has been previous amputa tion of the fifthray to the level of the proximal fifth metatarsal diaphysis. No fracture orbony erosion is seen.IMPRESSION:1. No acute bony abnormalities the p shaniqua, hips, right ankle, or right foot.2. Previous ORIF of a partially visualiz ed tibial fracture, which is healed ormostly healed. A remote distal fibular met adiaphyseal fracture is noted;healing, if present, appears incomplete.3. Truncat ion of the tuft of the distal first phalanx suggests prior surgeryrather than ac kotlik erosion. Findings also suggest previous hammertoe surgery ofthe second DIP j oint. Correlation with operative history is needed.4. Previous amputation of mos t of the fifth ray to the level of the base of thefifth metatarsal.XR HIP LEFT UNILATERAL 2 [id number] 19:02:57EXAM: Right hip series, 2 views; left hip series, 2 views; pelvis x-ray, oneview; right ankle series, 3 views; and right foot series, 3 viewsDictation location: [id number]: Acute infectious diseaseCOMPARISON: None.DISCUSSION:Pelvis: A frontal view of the pelvis is submitted. No displaced fracture isseen. A partially visualized left double-J ureteral stent is noted. Nosignificant hip osteoarthrosis is seen.Left hip: Frontal and frog-leg views of the left hip are submitted. There isexternal artifact overlying the left hip, possibly related to an ostomy. Nofracture, dislocation, or lytic or blastic lesions are identified. There is nohip osteoarthrosis.Right hip: Frontal and frog-leg views of the right hip are mcgowan bmitted. Nofracture, dislocation, or lytic or blastic lesions are identified. Th ere isheterotopic ossification at the origin of the right hip hamstring tendon,c ompatible with remote hamstring injury. No hip osteoarthrosis is seen.Right ankl e: Frontal, oblique, lateral views of the right ankle are submitted.There is par tially visualized tibial ORIF hardware. The tibial fracture appearshealed or mos tly healed. No hardware failure or loosening is seen. There is adistal fibular m etadiaphyseal fracture; healing, if present, appearsincomplete. No acute fractur e is seen. 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 There is truncation of the tuft of th e distal first phalanx, theappearance of which suggests prior surgery rather shimon n acute erosion. Findingssuggest previous hammertoe surgery of the second DIP cherry int; correlation withoperative history is needed. There has been previous amputa tion of the fifthray to the level of the proximal fifth metatarsal diaphysis. No fracture orbony erosion is seen.IMPRESSION:1. No acute bony abnormalities the p shaniqua, hips, right ankle, or right foot.2. Previous ORIF of a partially visualiz ed tibial fracture, which is healed ormostly healed. A remote distal fibular met adiaphyseal fracture is noted;healing, if present, appears incomplete.3. Truncat ion of the tuft of the distal first phalanx suggests prior surgeryrather than ac kotlik erosion. Findings also suggest previous hammertoe surgery ofthe second DIP j oint. Correlation with operative history is needed.4. Previous amputation of mos t of the fifth ray to the level of the base of thefifth metatarsal.XR ANKLE RIGHT COMPLETE 3 [id number] 19:02:57EXAM: Right hip series, 2 views; left hip series, 2 views; pelvis x-ray, oneview; right ankle series, 3 views; and right foot series, 3 viewsDictation location: [id number]: Acute infectious diseaseCOMPARISON: None.DISCUSSION:Pelvis: A frontal view of the pelvis is submitted. No displaced fracture isseen. A partially visualized left double-J ureteral stent is noted. Nosignificant hip osteoarthrosis is seen.Left hip: Frontal and frog-leg views of the left hip are submitted. There isexternal artifact overlying the left hip, possibly related to an ostomy. Nofracture, dislocation, or lytic or blastic lesions are identified. There is nohip osteoarthrosis.Right hip: Frontal and frog-leg views of the right hip are mcgowan bmitted. Nofracture, dislocation, or lytic or blastic lesions are identified. Th ere isheterotopic ossification at the origin of the right hip hamstring tendon,c ompatible with remote hamstring injury. No hip osteoarthrosis is seen.Right ankl e: Frontal, oblique, lateral views of the right ankle are submitted.There is par tially visualized tibial ORIF hardware. The tibial fracture appearshealed or mos tly healed. No hardware failure or loosening is seen. There is adistal fibular m etadiaphyseal fracture; healing, if present, appearsincomplete. No acute fractur e is seen. 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 There is truncation of the tuft of th e distal first phalanx, theappearance of which suggests prior surgery rather shimon n acute erosion. Findingssuggest previous hammertoe surgery of the second DIP cherry int; correlation withoperative history is needed. There has been previous amputa tion of the fifthray to the level of the proximal fifth metatarsal diaphysis. No fracture orbony erosion is seen.IMPRESSION:1. No acute bony abnormalities the p shaniqua, hips, right ankle, or right foot.2. Previous ORIF of a partially visualiz ed tibial fracture, which is healed ormostly healed. A remote distal fibular met adiaphyseal fracture is noted;healing, if present, appears incomplete.3. Truncat ion of the tuft of the distal first phalanx suggests prior surgeryrather than ac kotlik erosion. Findings also suggest previous hammertoe surgery ofthe second DIP j oint. Correlation with operative history is needed.4. Previous amputation of mos t of the fifth ray to the level of the base of thefifth metatarsal.XR FOOT RIGHT COMPLETE 3 [id number] 19:02:57EXAM: Right hip series, 2 views; left hip series, 2 views; pelvis x-ray, oneview; right ankle series, 3 views; and right foot series, 3 viewsDictation location: [id number]: Acute infectious diseaseCOMPARISON: None.DISCUSSION:Pelvis: A frontal view of the pelvis is submitted. No displaced fracture isseen. A partially visualized left double-J ureteral stent is noted. Nosignificant hip osteoarthrosis is seen.Left hip: Frontal and frog-leg views of the left hip are submitted. There isexternal artifact overlying the left hip, possibly related to an ostomy. Nofracture, dislocation, or lytic or blastic lesions are identified. There is nohip osteoarthrosis.Right hip: Frontal and frog-leg views of the right hip are mcgowan bmitted. Nofracture, dislocation, or lytic or blastic lesions are identified. Th ere isheterotopic ossification at the origin of the right hip hamstring tendon,c ompatible with remote hamstring injury. No hip osteoarthrosis is seen.Right ankl e: Frontal, oblique, lateral views of the right ankle are submitted.There is par tially visualized tibial ORIF hardware. The tibial fracture appearshealed or mos tly healed. No hardware failure or loosening is seen. There is adistal fibular m etadiaphyseal fracture; healing, if present, appearsincomplete. No acute fractur e is seen. 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 There is truncation of the tuft of th e distal first phalanx, theappearance of which suggests prior surgery rather shimon n acute erosion. Findingssuggest previous hammertoe surgery of the second DIP cherry int; correlation withoperative history is needed. There has been previous amputa tion of the fifthray to the level of the proximal fifth metatarsal diaphysis. No fracture orbony erosion is seen.IMPRESSION:1. No acute bony abnormalities the p shaniqua, hips, right ankle, or right foot.2. Previous ORIF of a partially visualiz ed tibial fracture, which is healed ormostly healed. A remote distal fibular met adiaphyseal fracture is noted;healing, if present, appears incomplete.3. Truncat ion of the tuft of the distal first phalanx suggests prior surgeryrather than ac kotlik erosion. Findings also suggest previous hammertoe surgery ofthe second DIP j oint. Correlation with operative history is needed.4. Previous amputation of mos t of the fifth ray to the level of the base of thefifth metatarsal.XR CHEST 1 VIEW [id number] 18:54:49EXAM: Portable chest x-rayDictation location: A1 COMPARISON: Chest x-ray on 05/15/16INDICATION: [id number]: Acute infectious diseaseDISCUSSION:Suboptimal inspiration is noted. There is mild interstitial or peribronchialopacity. No consolidation or pleural effusion is seen. The cardiomediastinalsilhouette is within normal limits. No acute bony abnormalities are identified.IMPRESSION: Interstitial or peribronchial opacity could be due to suboptimalinspiration. Bronchitis or viral/atypical pneumonia could appear similar. Nolobar pneumonia or pleural effusion is seen.IR Venous Access 2018-05-18 16:55:40Patient: MAXIMO GASTELUM Date/Time05/18/2018 12:10 CDTReason for Examone port of current Lantigua catheter is clogged, Please replace Lantigua catheter.ReportEXAMINATION: TUNNELED CENTRAL VENOUS CATHETER EXCHANGE USING FLUOROSCOPIC GUIDANCE.LOCATION: R16.HISTORY: Occluded and fractured port of the dual lumen left chest wall Lantigua placed at an outside institution, request is made for exchange. Patient requires catheter for OP IV antibiotics.SEDATION: The patient did not require conscious sedation for the procedure.RADIATION DOSE: 20 mGy.TECHNIQUE/FINDINGS: The risks, benefits and alternatives were discussed and informed consent was obtained. Prior to beginning the procedure, Hooven Protocol was used to confirm the patient's identity and planned procedure. Prior to the procedure, the central veins were evaluated by ultrasound, an image recorded and saved in PACS.Maximum sterile barriers including cap, mask, hand hygiene, sterile gloves, sterile gown, large sterile drape and cutaneous antisepsis were used.Assistant Hairstylist image was performed prior to procedure demonstrating catheter tip projected over mid brachiocephalic vein.The skin over the left chest wall/catheter was sterilely prepped, draped and infiltrated with 1% lidocaine.Blunt dissection was then used to free the Lantigua catheter cuff. Subsequently, a guidewire was placed into the IVC. Previous catheter was removed and a new slightly longer catheter was placed over the guidewire, with tip located over cavoatrial junction.The catheter was flushed with 100U/ml heparin.T he chest wall exit site incision was closed using 3-0 Vicryl. A sterile dressing was applied.ESTIMATED BLOOD LOSS: Less than 30 milliliters.DISCHARGED TO: [facility] and then to inpatient unit.CONDITION: Stable.IMPRESSION: Successful tunneled catheter exchange with placement of 9 [place] dual lumen Lantigua catheter.PLAN: The catheter is ready for immediate use. When treatment is completed, removal ca n be scheduled by calling VIR. Final Dictated by: MD Harvey Ankitku mar NDictated DT/TM: 05/18/2018 4:49 pmSigned by: MD Harvey Ankitkumar NSigned (Electronic Signature): 05/18/2018 4:55 pmUS Retroperitoneal [id number] 08:19:09Patient: MAXIMO GASTELUM Date/Time05/14/2018 06:08 CDTReason for ExamRenal failureReportULTRASOUND OF THE KIDNEYS AND BLADDERLocation of dictation: [id number] HISTORY: Renal failureCOMPARISON: CT of the abdomen and pelvis 01/22/2017TECHNIQUE:Ultrasound examination of the the left kidney and bladder was performed. This exam is slightly limited due to suboptimal acoustic windows.FINDINGS:The right kidney has been removed. The right renal fossa was not imaged.The left kidney is overall normal in size, and shape.Left renal echogenicity is slightly increased.The left kidney measures 10.3. cm.No definite focal renal lesion is seen.No hydronephrosis is seen.The urinary bladder is collapsed with Greene catheter in place.Incidentally, the spleen appears enlarged.IMPRESSION:1. Slightly increased left renal echogenicity may suggest medical renal disease.2. Otherwise, unremarkable ultrasound examination of the left kidney. Final Dictated by: MD Sandoval Alfred EDictated DT/TM: 05/14/2018 8:16 amSigned by: MD Sandoval Alfred ESigned (Electronic Signature): 05/14/2018 8:19 amXR Chest 1 View [id number] 15:28:34 Patient: MAXIMO GASTELUM am Date/Time05/13/2018 15:07 CDTReason for ExamHickman catheter non functional;O ther (please specify)ReportCHEST 1 VIEWCLINICAL INFORMATION: Other (please spec avinash);Lantigua catheter non functionalCOMPARISON: Chest radiograph dated July 09, 2017FINDINGS:The tip of a left subclavian vein approach Lantigua catheter proj ects over the left mid brachiocephalic vein. No pneumothorax or pleural effusio n is seen. Subsegmental atelectasis or scarring is noted in the right lower lob e. Mild central pulmonary vascular congestion is noted. The cardiac silhouette is mildly enlarged.IMPRESSION:1. The tip of the Lantigua catheter projects over the mid left brachiocephalic vein.2. Mild pulmonary vascular congestion.LOCATI ON: R16 Final Dictated by: MD Contreras Adam FDicttania DT/TM: 05/13 3:26 pmSigned by: MD Contreras Adam FSigned (Electronic Signature): 05/04 3:28 pmCulture, Blood [id number] 14:41:00Specimen: BloodCollected: 07/09/2017 10:05 Status: Final Last Updated: 08/22/2017 14:41 (1) ER Bed 6 Culture Result (Final) (Final) 07/10/17 Gram Positive Coccobacillus (aerobic bottle) 07/10/17 Called to W.Cardoso RN at 1345\\[facility] Read Back Lab Value 07/14/17 Gram variable coccobacillus 07/14/17 Sent to reference laboratory for further studies 08/13/17 Correction: Gram negative coccobacillus, previously reportedas Gram Positive coccobacillus (aerobic bottle) 08/13/17 Psychrobacter phenylpyruvicus/sanguinis 08/22/17 Organism is too fastidious for routine susceptibilitystudies. [facility] at [facility] [id number] Dir: Brandyn Gomez MD Result before changed by DORA on 07/10/2017 13:49: Culture Result (Prelim) (Prelim) <Specimen Received, Culture Pending Culture, Blood [id number] 17:59:00Specimen: BloodCollected: 07/17/2017 14:40 Status: Final Last Updated: 07/22/2017 17:59 Culture Result (Final) (Final) No Growth After 5 Days CBC with [id number] 06:11:00* Test Item Value Reference Range Interpretation Comments WBC (test code = WBC) 11.8 K/cumm 4.4-10.5 H RBC (test code = RBC) 3.81 M/cumm 4.10-5.70 L Hemoglobin (test code = HGB) 10.1 gm/dL 13.4-17.4 L Hematocrit (test code = HCT) 32.2 % 38.7-52.0 L MCV (test code = MCV) 84.6 fL 80-100 N MCH (test code = MCH) 26.5 pg 27.0-32.5 L MCHC (test code = MCHC) 31.3 g/dL 32.0-37.5 L RDW (test code = RDW) 16.7 % 11.5-14.5 H Platelet Count (test code = PLTCT) 340 K/cumm 140-440 N MPV (test code = MPV) 7.2 fL Diff Method (test code = DIFFM) Auto Neutrophil (test code = NEUT) 57.5 % 36-70 N Lymphocyte (test code = LYMPH) 32.1 % 12-44 N Monocyte (test code = MONO) 4.7 % 0-11 N Eosinophil (test code = EOS) 5.1 % 0-7 N Basophil (test code = BASO) 0.6 % 0-2 N Neutro Abs (test code = ANEUT) 6.8 K/cumm 1.6-7.4 N Lymph Abs (test code = ALYMPH) 3.8 K/cumm 0.5-4.6 N [place] Abs (test code = AMONO) 0.6 K/cumm 0.0-1.2 N Eos Abs (test code = AEOS) 0.60 K/cumm 0.00-0.74 N Baso Abs (test code = ABASO) 0.1 K/cumm 0.00-0.21 N Hypochromic (test code = HYPO) Slight Comprehensive Metabolic [id number] 06:08:00* Test Item Value Reference Range Interpretation Comments Sodium (test code = NA) 132 mmol/L 135-145 L Potassium (test code = K) 5.3 mmol/L 3.5-5.1 H Chloride (test code = CL) 94 mmol/L 98-105 L Carbon Dioxide (test code = CO2) 27 mmol/L 22-29 N Glucose (test code = GLU) 95 mg/dL 70-115 N Blood Urea Nitrogen (test code = BUN) 38 mg/dL 6-20 H Creatinine (test code = CREAT) 1.5 mg/dL 0.7-1.2 H Calcium (test code = CA) 9.7 mg/dL 8.3-10.5 N Prot Total (test code = TP) 8.2 g/dL 6.4-8.3 N Albumin (test code = ALB) 3.8 g/dL 3.5-5.2 N A/G Ratio (test code = AGRATIO) 0.9 Ratio Globulin (test code = GLOB) 4.4 2.9-3.1 H Bili Total (test code = TBIL) <0.1 mg/dL 0.1-0.9 L Alk Phos (test code = APHOS) 77 U/L 40-129 N AST (test code = AST) 16 U/L 1-40 N ALT (test code = ALT) 12 U/L 1-41 N BUN/Creatinine Ratio (test code = BCRATIO) 25.3 Anion Gap (test code = AGAP) 11 mmol/L 7-16 N Estimated GFR (test code = GFR) 58 mL/min/1.73m2 eGFR (estimated Glomerular Filtration Rate) is an estimated value,calculated from the patient's serum creatinine using the MDRD equation.It is NOT the patient's actual GFR. The eGFR provides a more clinicallyuseful measure of kidney disease than serum creatinine alone.This calculation takes sex and race into account, if the informationis provided. If the race is not provided, and the patient isAfrican-Egyptian, multiply by 1.212. If sex is not provided, and thepatient is female, multiply by 0.742. Results for patients <18 years ofage have not been validated by the MDRD study and should be interpretedwith caution.eGFR Result Interpretation:eGFR > or = 60 is in the Normal RangeeGFR < 60 may mean kidney diseaseeGFR < 15 may mean kidney failureRanges recommended by the National Kidney Found ation,http://nkdep.nih.gov Tobramycin Trough, [id number] 19:18:00* Test Item Value Reference Range Interpretation Comments Tobra, Trough (test code = TOBTR) 1.36 ug/mL 0.5-2.0 N [id number] 06:49:00* Test Item Value Reference Range Interpretation Comments Phosphorus (test code = PO4) 3.9 mg/dL 2.70-4.50 N Magnesium, [id number] 06:49:00* Test Item Value Reference Range Interpretation Comments Magnesium (test code = MG) 1.8 mg/dL 1.7-2.5 N Basic Metabolic [id number] 06:49:00* Test Item Value Reference Range Interpretation Comments Sodium (test code = NA) 137 mmol/L 135-145 N Potassium (test code = K) 5.2 mmol/L 3.5-5.1 H Chloride (test code = CL) 97 mmol/L 98-105 L Carbon Dioxide (test code = CO2) 27 mmol/L 22-29 N Glucose (test code = GLU) 100 mg/dL 70-115 N Blood Urea Nitrogen (test code = BUN) 29 mg/dL 6-20 H Creatinine (test code = CREAT) 1.6 mg/dL 0.7-1.2 H Calcium (test code = CA) 9.4 mg/dL 8.3-10.5 N BUN/Creatinine Ratio (test code = BCRATIO) 18.1 Anion Gap (test code = AGAP) 13 mmol/L 7-16 N Estimated GFR (test code = GFR) 54 mL/min/1.73m2 eGFR (estimated Glomerular Filtration Rate) is an estimated value,calculated from the patient's serum creatinine using the MDRD equation.It is NOT the patient's actual GFR. The eGFR provides a more clinicallyuseful measure of kidney disease than serum creatinine alone.This calculation takes sex and race into account, if the informationis provided. If the race is not provided, and the patient isAfrican-Egyptian, multiply by 1.212. If sex is not provided, and thepatient is female, multiply by 0.742. Results for patients <18 years ofage have not been validated by the MDRD study and should be interpretedwith caution.eGFR Result Interpretation:eGFR > or = 60 is in the Normal RangeeGFR < 60 may mean kidney diseaseeGFR < 15 may mean kidney failureRanges recommended by the National Kidney Found ation,http://nkdep.nih.gov Basic Metabolic [id number] 06:40:00* Test Item Value Reference Range Interpretation Comments Sodium (test code = NA) 138 mmol/L 135-145 N Potassium (test code = K) 4.8 mmol/L 3.5-5.1 N Chloride (test code = CL) 98 mmol/L 98-105 N Carbon Dioxide (test code = CO2) 26 mmol/L 22-29 N Glucose (test code = GLU) 106 mg/dL 70-115 N Blood Urea Nitrogen (test code = BUN) 23 mg/dL 6-20 H Creatinine (test code = CREAT) 1.5 mg/dL 0.7-1.2 H Calcium (test code = CA) 9.3 mg/dL 8.3-10.5 N BUN/Creatinine Ratio (test code = BCRATIO) 15.3 Anion Gap (test code = AGAP) 14 mmol/L 7-16 N Estimated GFR (test code = GFR) 58 mL/min/1.73m2 eGFR (estimated Glomerular Filtration Rate) is an estimated value,calculated from the patient's serum creatinine using the MDRD equation.It is NOT the patient's actual GFR. The eGFR provides a more clinicallyuseful measure of kidney disease than serum creatinine alone.This calculation takes sex and race into account, if the informationis provided. If the race is not provided, and the patient isAfrican-E[place]ian, multiply by 1.212. If sex is not provided, and thepatient is female, multiply by 0.742. Results for patients <18 years ofage have not been validated by the MDRD study and should be interpretedwith caution.eGFR Result Interpretation:eGFR > or = 60 is in the Normal RangeeGFR < 60 may mean kidney diseaseeGFR < 15 may mean kidney failureRanges recommended by the National Kidney Found ation,http://nkdep.nih.gov Basic Metabolic [id number] 04:41:00* Test Item Value Reference Range Interpretation Comments Sodium (test code = NA) 134 mmol/L 135-145 L Potassium (test code = K) 5.4 mmol/L 3.5-5.1 H Chloride (test code = CL) 97 mmol/L 98-105 L Carbon Dioxide (test code = CO2) 25 mmol/L 22-29 N Glucose (test code = GLU) 94 mg/dL 70-115 N Blood Urea Nitrogen (test code = BUN) 20 mg/dL 6-20 N Creatinine (test code = CREAT) 1.4 mg/dL 0.7-1.2 H Calcium (test code = CA) 9.6 mg/dL 8.3-10.5 N BUN/Creatinine Ratio (test code = BCRATIO) 14.3 Anion Gap (test code = AGAP) 12 mmol/L 7-16 N Estimated GFR (test code = GFR) >60 mL/min/1.73m2 eGFR (estimated Glomerular Filtration Rate) is an estimated value,calculated from the patient's serum creatinine using the MDRD equation.It is NOT the patient's actual GFR. The eGFR provides a more clinicallyuseful measure of kidney disease than serum creatinine alone.This calculation takes sex and race into account, if the informationis provided. If the race is not provided, and the patient isAfrican-Egyptian, multiply by 1.212. If sex is not provided, and thepatient is female, multiply by 0.742. Results for patients <18 years ofage have not been validated by the MDRD study and should be interpretedwith caution.eGFR Result Interpretation:eGFR > or = 60 is in the Normal RangeeGFR < 60 may mean kidney diseaseeGFR < 15 may mean kidney failureRanges recommended by the National Kidney Found ation,http://nkdep.nih.gov Culture, Wound [id number] 10:41:00Specimen: BackCollected: 07/13/2017 05:30 Status: Final Last Updated: 07/17/2017 10:41 (1) SACRAL WOUND Gram Stain (Final) (Final) 07/13/17 No organsims seen, No WBC's seen Culture Result (Final) (Final) \\S\\07/15/17 Few Non Lactose Instructor Ballroom Dancing Gram negative rods \\S\\07/15/17 Few Gamma Hemolytic Streptococcus \\S\\07/15/17 Multiple organisms present, no further workup in progress 07/16/17 Anaerobic culture:No anaerobes isolated at 3 days Isolate (Final) (Final) 07/14/17 Many Acinetobacter baumannii/haemolyticus 07/16/17 Multi Drug Resistant Organism - Contact IsolationRecommended 07/16/17 Called to Woody Santa at 10:34am YA Read Back Lab Value +07/17/17 Imipenem = 9mm Resistant (by disc diffusion method) +07/17/17 Colistin = 14 mm No interpretation (by disc diffusinmethod) Amikacin <=16 Susceptible Ampicillin/Sulb 16/8 Intermediate Cefepime >16 Resistant Cefotaxime 32 Intermediate Ceftazidime 8 Susceptible Ceftriaxone 32 Intermediate C iprofloxacin >2 Resistant Gentamicin >8 Resistant Levofloxacin >4 Resistant Meropenem >8 Resistant Tobramycin <=4 Susceptible Trimethoprim/Sulfa <=2/38 Susceptible Result added after release. Isolate (Final) (Final) 07/14/17 Many Acinetobacter baumannii/haemolyticus 07/16/17 Multi Drug Resistant Organism - Contact IsolationRecommended 07/16/17 Called to Woody Santa at 10:34am YA Read Back Lab Value Amikacin <=16 Susceptible Ampicillin/Sulb 16/8 Intermediate Cefepime >16 Resistant Cefotaxime 32 Intermediate Ceftazidime 8 Susceptible Ceftriaxone 32 Intermediate Ciprofloxacin >2 Resistant Gentamicin >8 Resistant Levofloxacin >4 Resistant Meropenem >8 Resistant Tobramycin <=4 Susceptible Trimethoprim/Sulfa <=2/38 Susceptible Result before changed by MAHSA on 07/15/2017 09:51: No previously released data found. Basic Metabolic Panel 2017-07-17 06:06:00* Test Item Value Reference Range Interpretation Comments Sodium (test code = NA) 133 mmol/L 135-145 L Potassium (test code = K) 5.4 mmol/L 3.5-5.1 H Chloride (test code = CL) 98 mmol/L 98-105 N Carbon Dioxide (test code = CO2) 25 mmol/L 22-29 N Glucose (test code = GLU) 101 mg/dL 70-115 N Blood Urea Nitrogen (test code = BUN) 15 mg/dL 6-20 N Creatinine (test code = CREAT) 1.2 mg/dL 0.7-1.2 N Calcium (test code = CA) 9.1 mg/dL 8.3-10.5 N BUN/Creatinine Ratio (test code = BCRATIO) 12.5 Anion Gap (test code = AGAP) 10 mmol/L 7-16 N Estimated GFR (test code = GFR) >60 mL/min/1.73m2 eGFR (estimated Glomerular Filtration Rate) is an estimated value,calculated from the patient's serum creatinine using the MDRD equation.It is NOT the patient's actual GFR. The eGFR provides a more clinicallyuseful measure of kidney disease than serum creatinine alone.This calculation takes sex and race into account, if the informationis provided. If the race is not provided, and the patient isAfrican-Egyptian, multiply by 1.212. If sex is not provided, and thepatient is female, multiply by 0.742. Results for patients <18 years ofage have not been validated by the MDRD study and should be interpretedwith caution.eGFR Result Interpretation:eGFR > or = 60 is in the Normal RangeeGFR < 60 may mean kidney diseaseeGFR < 15 may mean kidney failureRanges recommended by the National Kidney Found ation,http://nkdep.nih.gov Gentamicin, [id number] 19:03:00* Test Item Value Reference Range Interpretation Comments Gent, Trough (test code = GENTTR) 1.8 ug/mL 0.0-2.0 N Vancomycin, [id number] 17:37:00* Test Item Value Reference Range Interpretation Comments Vanco, Trou (test code = VANTR) 15.6 ug/mL 10.0-20.0 N SP INS NON-TUNNEL CV [id number] 16:02:10PROCEDURE: Non tunneled central venous catheter with ultrasound andfluoroscopic guidance INDICATION: Osteomyelitis, need for long-term antibioticsDATE: 07/16/2017OPERATORS: Michelet Contreras M.D.FLUOROSCOPY TIME: 0.01 minutes; DAP: 1 Gy-cm2 CATHETER: 7 Guinean x 15 cm Arrow triple lumenACCESS SITE: Right internal jugular vein with ultrasound guidanceCOMPLICATIONS: None immediateTECHNIQUE:The risks, benefits, and alternatives to the procedure were explained. Written informed consent was obtained. The right neck region was prepped and draped in sterile fashion. Allelements of maximum barrier sterile technique were utilized. The vesselswere ultrasonographically evaluated and an appropriate entry sitechosen. Using local anesthetic and under direct ultrasound guidance,the patent right internal jugular vein was punctured with a 21-gaugemicropuncture needle. An 8 gauge documenting needle placement was savedto the permanent record. A 0.018 wire was advanced into the inferiorvena cava. A 4 Guinean vascular sheath was placed. The inner dilatorand wire were removed, and a 0.035" wire was advanced. The catheterwas advanced over the wire and positioned centrally using fluoroscopy .The wire was removed and the ports were flushed per protocol. Thecatheter was sutured in place and an antimicrobial sterile dressing wasapplied.The procedure was well tolerated.FINDINGS:1. The right internal jugular vein is small but ultr asonographicallypatent. Needle entry was documented and images were stored to [facility].2. The catheter tip terminates in the high right atrium.IMPRESSION: Uneventf ul image guided placement of a non tunneled triple lumen centralvenous catheter as described.Location code: [id number], Blood [id number] 13:33:00 Specimen: BloodCollected: 07/13/2017 05:30 Status: Final Last Updated: 07/04 13:33 Culture Result (Final) (Final) 07/15/17 Evidence of gr owth Yeast (aerobic bottle) 07/15/17 Called to Woody Santa at 11:27am MYRON alvarado Back Lab Value 07/15/17 Yeast 07/16/17 Melody albicans Culture, Wound [id number] 11:44:00Specimen: FootCollected: 07/12/2017 19:00 Status: Final Last Updated: 07/16/2017 11:44 (1) RT FOOT'S WOUND Gram Stain (Final) (Final) 07/13/17 No organsims seen, No WBC's seen Culture Result (Final) (Final) 07/14/17 Smear from broth Gram positive cocci in clumps 07/16/17 From broth Staph-coag negative 07/16/17 Anaerobic culture:No anaerobes isolated at 3 days Isolate (Final) (Final) 07/15/17 From broth Staph-coag positive 07/16/17 Methicillin Resistant Staph aureus- contact isolation recommended 07/16/17 Called to Woody Santa at 9:22am YA Read Back Lab Value Isolate Staph-coag positive NHUNG (mcg/ml) Amoxicillin/Clav (AUG)>4/2 Resistant Ampicillin (AM) >8 Resistant Ampicillin/Sulb (A/S) 16/8 Resistant Cefazolin (CFZ) >16 Resistant Ceftriaxone (RIM ROLLER SETTER) >32 Resistant Chloramphenicol (C) 16 Intermediate Ciprofloxacin (CP) >2 Resistant Clindamycin (CM) >4 Resistant Erythromycin (E) >4 Resistant Gentamicin (GM) >8 Resistant Imipenem (IMP) >8 Resistant Levofloxacin (LEV) >4 Resistant Linezolid (LNZ) 2 Susceptible Oxacillin (OX1) >2 Resistant Penicillin (P) >8 Resistant Rifampin (RA) <=1 Susceptible Tetracycline (TE) 2 Susceptible Trimethoprim/Sulfa <=0.5/9.Susceptible (SXT) 5 Vancomycin (VA) 2 Susceptible Basic Metabolic [id number] 06:45:00* Test Item Value Reference Range Interpretation Comments Sodium (test code = NA) 136 mmol/L 135-145 N Potassium (test code = K) 5.2 mmol/L 3.5-5.1 H Chloride (test code = CL) 100 mmol/L 98-105 N Carbon Dioxide (test code = CO2) 24 mmol/L 22-29 N Glucose (test code = GLU) 88 mg/dL 70-115 N Blood Urea Nitrogen (test code = BUN) 9 mg/dL 6-20 N Creatinine (test code = CREAT) 1.1 mg/dL 0.7-1.2 N Calcium (test code = CA) 9.0 mg/dL 8.3-10.5 N BUN/Creatinine Ratio (test code = BCRATIO) 8.2 Anion Gap (test code = AGAP) 12 mmol/L 7-16 N Estimated GFR (test code = GFR) >60 mL/min/1.73m2 eGFR (estimated Glomerular Filtration Rate) is an estimated value,calculated from the patient's serum creatinine using the MDRD equation.It is NOT the patient's actual GFR. The eGFR provides a more clinicallyuseful measure of kidney disease than serum creatinine alone.This calculation takes sex and race into account, if the informationis provided. If the race is not provided, and the patient isAfrican-Egyptian, multiply by 1.212. If sex is not provided, and thepatient is female, multiply by 0.742. Results for patients <18 years ofage have not been validated by the MDRD study and should be interpretedwith caution.eGFR Result Interpretation:eGFR > or = 60 is in the Normal RangeeGFR < 60 may mean kidney diseaseeGFR < 15 may mean kidney failureRanges recommended by the National Kidney Found ation,http://nkdep.nih.gov Basic Metabolic [id number] 06:53:00* Test Item Value Reference Range Interpretation Comments Sodium (test code = NA) 137 mmol/L 135-145 N Potassium (test code = K) 4.5 mmol/L 3.5-5.1 N Chloride (test code = CL) 100 mmol/L 98-105 N Carbon Dioxide (test code = CO2) 23 mmol/L 22-29 N Glucose (test code = GLU) 85 mg/dL 70-115 N Blood Urea Nitrogen (test code = BUN) 9 mg/dL 6-20 N Creatinine (test code = CREAT) 1.2 mg/dL 0.7-1.2 N Calcium (test code = CA) 8.8 mg/dL 8.3-10.5 N BUN/Creatinine Ratio (test code = BCRATIO) 7.5 Anion Gap (test code = AGAP) 14 mmol/L 7-16 N Estimated GFR (test code = GFR) >60 mL/min/1.73m2 eGFR (estimated Glomerular Filtration Rate) is an estimated value,calculated from the patient's serum creatinine using the MDRD equation.It is NOT the patient's actual GFR. The eGFR provides a more clinicallyuseful measure of kidney disease than serum creatinine alone.This calculation takes sex and race into account, if the informationis provided. If the race is not provided, and the patient isAfrican-Egyptian, multiply by 1.212. If sex is not provided, and thepatient is female, multiply by 0.742. Results for patients <18 years ofage have not been validated by the MDRD study and should be interpretedwith caution.eGFR Result Interpretation:eGFR > or = 60 is in the Normal RangeeGFR < 60 may mean kidney diseaseeGFR < 15 may mean kidney failureRanges recommended by the National Kidney Found ation,http://nkdep.nih.gov Culture, Blood [id number] 19:09:00Specimen: BloodCollected: 07/09/2017 10:05 Status: Final Last Updated: 07/14/2017 19:09 (1) ER Bed 6 Culture Result (Final) (Final) No Growth After 5 Days Culture, Urine 2017-07-14 11:59:00Specimen: UrineCollected: 07/09/2017 11:55 Status: Final Last Updated: 07/14/2017 11:59 Isolate (Final) (Final) 07/10/17 > 100,000 CFU/mL Escherichia coli 07/12/17 Multi Drug Resistant Organism - Co ntact IsolationRecommended 07/12/17 Called to Judi Ivory RN at 1056/PXS Read B ack Lab Value +07/13/17 Colistin 10mm: No interpretation by disc diffusion Amikacin <=16 Susceptible Ampicillin >16 Resistant Ampicillin/Sulb >16/8 Resistant Cefazolin >16 Resistant Cefepime >16 Resistant Cefotaxime >32 Resistant Ceftazidime 8 Resistant Ceftriaxone >32 Resistant Cefuroxime >16 Resistant Ciprofloxacin >2 Resistant Gentamicin <=4 Susceptible Imipenem 4 Resistant Levofloxacin >4 Resistant Meropenem 8 Resistant Nitrofurantoin <=32 Susceptible Piperacillin/Tazo >64 Resistant Tobramycin <=4 Susceptible Trimethoprim/Sulfa >2/38 Resistant Isolate (Final) (Final) 07/11/17 >100,000 CFU/mL Morganella morganii 07/13/17 Multi Drug Resistant Organism - Contact IsolationRecommended Amikacin <=16 Susceptible Ampicillin >16 Resistant Ampicillin/Sulb >16/8 Resistant Cefazolin >16 Resistant Cefepime <=4 Susceptible Cefotaxime 8 Susceptible Ceftazidime >16 Resistant Ceftriaxone 2 Intermediate Cefuroxime >16 Resistant Ciprofloxacin >2 Resistant Gentamicin <=4 Susceptible Imipenem 8 Resistant Levofloxacin >4 Resistant Meropenem <=1 Susceptible Nitrofurantoin >64 Resistant Piperacillin/Tazo <=16 Susceptible Tobramycin <=4 Susceptible Trimethoprim/Sulfa >2/38 Resistant Result added after release. Isolate (Final) (Final) 07/10/17 >100,000 CFU/mL Escherichia coli 07/12/17 Multi Drug Resistant Organism - Contact IsolationRecommended 07/12/17 Called to Judi Ivory RN at 1056/PXS Read Back Lab Value Amikacin <=16 Susceptible Ampicillin >16 Resistant Ampicillin/Sulb >16/8 Resistant Cefazolin >16 Resistant Cefepime >16 Resistant Cefotaxime >32 Resistant Ceftazidime 8 Resistant Ceftriaxone >32 Resistant Cefuroxime >16 Resistant Ciprofloxacin >2 Resistant Gentamicin <=4 Susceptible Imipenem 4 Resistant Levofloxacin >4 Resistant Meropenem 8 Resistant Nitrofurantoin <=32 Susceptible Piperacillin/Tazo >64 Resistant Tobramycin <=4 Susceptible Trimethoprim/Sulfa >2/38 Resistant Basic Metabolic [id number] 07:09:00* Test Item Value Reference Range Interpretation Comments Sodium (test code = NA) 140 mmol/L 135-145 N Potassium (test code = K) 4.4 mmol/L 3.5-5.1 N Chloride (test code = CL) 105 mmol/L 98-105 N Carbon Dioxide (test code = CO2) 25 mmol/L 22-29 N Glucose (test code = GLU) 88 mg/dL 70-115 N Blood Urea Nitrogen (test code = BUN) 8 mg/dL 6-20 N Creatinine (test code = CREAT) 1.1 mg/dL 0.7-1.2 N Calcium (test code = CA) 8.8 mg/dL 8.3-10.5 N BUN/Creatinine Ratio (test code = BCRATIO) 7.3 Anion Gap (test code = AGAP) 10 mmol/L 7-16 N Estimated GFR (test code = GFR) >60 mL/min/1.73m2 eGFR (estimated Glomerular Filtration Rate) is an estimated value,calculated from the patient's serum creatinine using the MDRD equation.It is NOT the patient's actual GFR. The eGFR provides a more clinicallyuseful measure of kidney disease than serum creatinine alone.This calculation takes sex and race into account, if the informationis provided. If the race is not provided, and the patient isAfrican-Egyptian, multiply by 1.212. If sex is not provided, and thepatient is female, multiply by 0.742. Results for patients <18 years ofage have not been validated by the MDRD study and should be interpretedwith caution.eGFR Result Interpretation:eGFR > or = 60 is in the Normal RangeeGFR < 60 may mean kidney diseaseeGFR < 15 may mean kidney failureRanges recommended by the National Kidney Found ation,http://nkdep.nih.gov CBC with [id number] 07:08:00* Test Item Value Reference Range Interpretation Comments WBC (test code = WBC) 6.9 K/cumm 4.4-10.5 N RBC (test code = RBC) 3.71 M/cumm 4.10-5.70 L Hemoglobin (test code = HGB) 9.7 gm/dL 13.4-17.4 L Hematocrit (test code = HCT) 30.6 % 38.7-52.0 L MCV (test code = MCV) 82.4 fL 80-100 N MCH (test code = MCH) 26.0 pg 27.0-32.5 L MCHC (test code = MCHC) 31.6 g/dL 32.0-37.5 L RDW (test code = RDW) 14.7 % 11.5-14.5 H Platelet Count (test code = PLTCT) 437 K/cumm 140-440 N MPV (test code = MPV) 9.6 fL Diff Method (test code = DIFFM) Auto Neutrophil (test code = NEUT) 49.9 % 36-70 N Lymphocyte (test code = LYMPH) 38.7 % 12-44 N Monocyte (test code = MONO) 5.7 % 0-11 N Eosinophil (test code = EOS) 4.7 % 0-7 N Basophil (test code = BASO) 0.9 % 0-2 N Neutro Abs (test code = ANEUT) 3.4 K/cumm 1.6-7.4 N Lymph Abs (test code = ALYMPH) 2.7 K/cumm 0.5-4.6 N [place] Abs (test code = AMONO) 0.4 K/cumm 0.0-1.2 N Eos Abs (test code = AEOS) 0.32 K/cumm 0.00-0.74 N Baso Abs (test code = ABASO) 0.1 K/cumm 0.00-0.21 N Hypochromic (test code = HYPO) Slight Gentamicin, [id number] 16:46:00* Test Item Value Reference Range Interpretation Comments Gent, Trough (test code = GENTTR) 2.0 ug/mL 0.0-2.0 N Vancomycin, [id number] 13:02:00* Test Item Value Reference Range Interpretation Comments Vanco, Trou (test code = VANTR) 22.1 ug/mL 10.0-20.0 Basic Metabolic [id number] 06:21:00* Test Item Value Reference Range Interpretation Comments Sodium (test code = NA) 137 mmol/L 135-145 N Potassium (test code = K) 4.2 mmol/L 3.5-5.1 N Chloride (test code = CL) 104 mmol/L 98-105 N Carbon Dioxide (test code = CO2) 22 mmol/L 22-29 N Glucose (test code = GLU) 89 mg/dL 70-115 N Blood Urea Nitrogen (test code = BUN) 9 mg/dL 6-20 N Creatinine (test code = CREAT) 1.0 mg/dL 0.7-1.2 N Calcium (test code = CA) 8.6 mg/dL 8.3-10.5 N BUN/Creatinine Ratio (test code = BCRATIO) 9.0 Anion Gap (test code = AGAP) 11 mmol/L 7-16 N Estimated GFR (test code = GFR) >60 mL/min/1.73m2 eGFR (estimated Glomerular Filtration Rate) is an estimated value,calculated from the patient's serum creatinine using the MDRD equation.It is NOT the patient's actual GFR. The eGFR provides a more clinicallyuseful measure of kidney disease than serum creatinine alone.This calculation takes sex and race into account, if the informationis provided. If the race is not provided, and the patient isAfrican-Egyptian, multiply by 1.212. If sex is not provided, and thepatient is female, multiply by 0.742. Results for patients <18 years ofage have not been validated by the MDRD study and should be interpretedwith caution.eGFR Result Interpretation:eGFR > or = 60 is in the Normal RangeeGFR < 60 may mean kidney diseaseeGFR < 15 may mean kidney failureRanges recommended by the National Kidney Found atpending sale to novant health,http://nkdep.nih.gov Basic Metabolic [id number] 09:38:00* Test Item Value Reference Range Interpretation Comments Sodium (test code = NA) 141 mmol/L 135-145 N Potassium (test code = K) 3.4 mmol/L 3.5-5.1 L Chloride (test code = CL) 105 mmol/L 98-105 N Carbon Dioxide (test code = CO2) 20 mmol/L 22-29 L Glucose (test code = GLU) 79 mg/dL 70-115 N Blood Urea Nitrogen (test code = BUN) 9 mg/dL 6-20 N Creatinine (test code = CREAT) 1.0 mg/dL 0.7-1.2 N Calcium (test code = CA) 8.6 mg/dL 8.3-10.5 N BUN/Creatinine Ratio (test code = BCRATIO) 9.0 Anion Gap (test code = AGAP) 16 mmol/L 7-16 N Estimated GFR (test code = GFR) >60 mL/min/1.73m2 eGFR (estimated Glomerular Filtration Rate) is an estimated value,calculated from the patient's serum creatinine using the MDRD equation.It is NOT the patient's actual GFR. The eGFR provides a more clinicallyuseful measure of kidney disease than serum creatinine alone.This calculation takes sex and race into account, if the informationis provided. If the race is not provided, and the patient isAfrican-Egyptian, multiply by 1.212. If sex is not provided, and thepatient is female, multiply by 0.742. Results for patients <18 years ofage have not been validated by the MDRD study and should be interpretedwith caution.eGFR Result Interpretation:eGFR > or = 60 is in the Normal RangeeGFR < 60 may mean kidney diseaseeGFR < 15 may mean kidney failureRanges recommended by the National Kidney Found ation,http://nkdep.nih.gov [id number] 08:26:00* Test Item Value Reference Range Interpretation Comments Hemoglobin (test code = HGB) 8.3 gm/dL 13.4-17.4 L C. difficile amplified [id number] 09:00:00Specimen: FecesCollected: 07/10/2017 15:55 Status: Final Last Updated: 07/11/2017 09:00 Clostridium difficile toxin (Illumigene) (Final) (Final) Specimen negative for toxigenic C. difficile by DNA amplification Duplicate specimens will not be accepted on this patient for thenext 7 days. Published data on the sensitivity of molecular assays suggest that there is no diagnostic value in repeat testing of samples inclose time sequence. CBC with Differential 2017-07-11 08:54:00* Test Item Value Reference Range Interpretation Comments WBC (test code = WBC) 9.3 K/cumm 4.4-10.5 N RBC (test code = RBC) 3.20 M/cumm 4.10-5.70 L Hemoglobin (test code = HGB) 8.2 gm/dL 13.4-17.4 L Hematocrit (test code = HCT) 26.9 % 38.7-52.0 L MCV (test code = MCV) 84.1 fL 80-100 N MCH (test code = MCH) 25.8 pg 27.0-32.5 L MCHC (test code = MCHC) 30.6 g/dL 32.0-37.5 L RDW (test code = RDW) 14.5 % 11.5-14.5 N Platelet Count (test code = PLTCT) 328 K/cumm 140-440 N MPV (test code = MPV) 10.0 fL Diff Method (test code = DIFFM) Auto Neutrophil (test code = NEUT) 65.8 % 36-70 N Lymphocyte (test code = LYMPH) 24.7 % 12-44 N Monocyte (test code = MONO) 4.7 % 0-11 N Eosinophil (test code = EOS) 4.3 % 0-7 N Basophil (test code = BASO) 0.4 % 0-2 N Neutro Abs (test code = ANEUT) 6.1 K/cumm 1.6-7.4 N Lymph Abs (test code = ALYMPH) 2.3 K/cumm 0.5-4.6 N [place] Abs (test code = AMONO) 0.4 K/cumm 0.0-1.2 N Eos Abs (test code = AEOS) 0.40 K/cumm 0.00-0.74 N Baso Abs (test code = ABASO) 0.0 K/cumm 0.00-0.21 N Hypochromic (test code = HYPO) Moderate Occult [id number] 08:47:00* Test Item Value Reference Range Interpretation Comments Occ Bld (test code = HSOB) Positive Negative A Comprehensive Metabolic [id number] 05:10:00* Test Item Value Reference Range Interpretation Comments Sodium (test code = NA) 137 mmol/L 135-145 N Potassium (test code = K) 2.9 mmol/L 3.5-5.1 LL RE AD BACK LAB VALUESVERIFIED BY REPEAT TESTINGE.Annie @509 07/11/2017 kms Chloride (test code = CL) 106 mmol/L 98-105 H Carbon Dioxide (test code = CO2) 20 mmol/L 22-29 L Glucose (test code = GLU) 96 mg/dL 70-115 N Blood Urea Nitrogen (test code = BUN) 12 mg/dL 6-20 N Creatinine (test code = CREAT) 1.1 mg/dL 0.7-1.2 N Calcium (test code = CA) 8.1 mg/dL 8.3-10.5 L Prot Total (test code = TP) 5.5 g/dL 6.4-8.3 L Albumin (test code = ALB) 2.4 g/dL 3.5-5.2 L A/G Ratio (test code = AGRATIO) 0.8 Ratio Globulin (test code = GLOB) 3.1 2.9-3.1 N Bili Total (test code = TBIL) 0.2 mg/dL 0.1-0.9 N Alk Phos (test code = APHOS) 54 U/L 40-129 N AST (test code = AST) 10 U/L 1-40 N ALT (test code = ALT) 7 U/L 1-41 N BUN/Creatinine Ratio (test code = BCRATIO) 10.9 Anion Gap (test code = AGAP) 11 mmol/L 7-16 N Estimated GFR (test code = GFR) >60 mL/min/1.73m2 eGFR (estimated Glomerular Filtration Rate) is an estimated value,calculated from the patient's serum creatinine using the MDRD equation.It is NOT the patient's actual GFR. The eGFR provides a more clinicallyuseful measure of kidney disease than serum creatinine alone.This calculation takes sex and race into account, if the informationis provided. If the race is not provided, and the patient isAfrican-E[place]ian, multiply by 1.212. If sex is not provided, and thepatient is female, multiply by 0.742. Results for patients <18 years ofage have not been validated by the MDRD study and should be interpretedwith caution.eGFR Result Interpretation:eGFR > or = 60 is in the Normal RangeeGFR < 60 may mean kidney diseaseeGFR < 15 may mean kidney failureRanges recommended by the National Kidney Found ation,http://nkdep.nih.gov CBC with [id number] 05:06:00* Test Item Value Reference Range Interpretation Comments WBC (test code = WBC) 10.8 K/cumm 4.4-10.5 H READ B ACK LAB VALUESVERIFIED BY REPEAT TESTINGcalled [place] [address]/11/2017. antibiotics. DD RBC (test code = RBC) 3.04 M/cumm 4.10-5.70 L Hemoglobin (test code = HGB) 7.9 gm/dL 13.4-17.4 L READ BACK LAB VALUESVERIFIED BY REPEAT [place]called [place] [address]500[place]/11/2017. No info was given. DD Hematocrit (test code = HCT) 25.6 % 38.7-52.0 L MCV (test code = MCV) 84.1 fL 80-100 N MCH (test code = MCH) 26.0 pg 27.0-32.5 L MCHC (test code = MCHC) 30.9 g/dL 32.0-37.5 L RDW (test code = RDW) 14.7 % 11.5-14.5 H Platelet Count (test code = PLTCT) 350 K/cumm 140-440 N MPV (test code = MPV) 10.0 fL Diff Method (test code = DIFFM) Auto Neutrophil (test code = NEUT) 58.1 % 36-70 N Lymphocyte (test code = LYMPH) 33.0 % 12-44 N Monocyte (test code = MONO) 4.7 % 0-11 N Eosinophil (test code = EOS) 3.8 % 0-7 N Basophil (test code = BASO) 0.4 % 0-2 N Neutro Abs (test code = ANEUT) 6.3 K/cumm 1.6-7.4 N Lymph Abs (test code = ALYMPH) 3.6 K/cumm 0.5-4.6 N [place] Abs (test code = AMONO) 0.5 K/cumm 0.0-1.2 N Eos Abs (test code = AEOS) 0.41 K/cumm 0.00-0.74 N Baso Abs (test code = ABASO) 0.0 K/cumm 0.00-0.21 N Hypochromic (test code = HYPO) Moderate [id number] 04:58:00* Test Item Value Reference Range Interpretation Comments Phosphorus (test code = PO4) 2.4 mg/dL 2.70-4.50 L Magnesium, [id number] 04:58:00* Test Item Value Reference Range Interpretation Comments Magnesium (test code = MG) 1.4 mg/dL 1.7-2.5 L Lactic Acid [id number] 04:57:00* Test Item Value Reference Range Interpretation Comments Lactic Acid, Bld (test code = LAC) 1.0 mmol/L 0.5-1.9 N Vancomycin, [id number] 01:29:00* Test Item Value Reference Range Interpretation Comments Vanco, Trou (test code = VANTR) 24.8 ug/mL 10.0-20.0 HH READ BACK LAB VALUESVERIFIED BY REPEAT TESTINGWendie @128am 07/11/2017 [place] [id number]& COCCYX [id number] 08:27:57EXAM: SACRUM AND COCCYX 2 VIEWSINDICATION: WOUNDSCOMPARISON: None availableTECHNIQUE: AP and lateral views of the sacrum and coccyx. The lateralradiographs are nondiagnostic.FINDINGS: No acute fractures are identified. No osseous lesions. The lower lumbarspine is normal. The sacroiliac joints and pubic symphysis are normal inalignment with no diastases. The hip joints are normal. No soft tissueabnormality.IMPRESSION: 1. Lateral radiographs are nondiagnostic.2. No osseous lesion is identified on the single AP view. If there isclinical concern for possible decubitus ulcer, MRI sacrum with andwithout contrast could be helpful.LOCATION: [id number] FOOT 2V-RIGHT 2017-07-10 08:26:11EXAM: XR FOOT 2 VIEWS, RIGHTINDICATION: UlcerationCOMPARISON: September 19, 2016TECHNIQUE: AP and lateral views of the right foot.FINDINGS: No acute fracture or dislocation is identified. There is diffuse softtissue edema of the right foot. There is an ulceration overlying the MTPjoint of the fifth digit. There is osseous erosion of the distal fifthdigit metatarsal.IMPRESSION: Osseous erosion of the distal aspect of the fifth metatarsal concerningfor osteomyelitis. Overlying soft tissue ulceration with diffuse softtissue edema noted.LOCATION: R16XR FEMUR 2V.-[id number] 08:25:01EXAM: XR FEMUR 2 VIEWS, LEFTINDICATION: WOUNDSCOMPARISON: September 19, 2016TECHNIQUE: AP and lateral views of the left femur.FINDINGS: No acute fracture or dislocation is identified. No osseous lesions. Nosoft tissue abnormality is identifi ed.IMPRESSION: No osseous lesions are identified.LOCATION: R16HIV Rapid 2017-07-10 06:27:00* Test Item Value Reference Range Interpretation Comments HIV 1/2 Antibody (test code = HIV1/2AB) Non-Reactive Non-Reactive N HIV1/2 Antibody screen result indicates the absence of HIV1 and PYF5bgmxyjmhx.However, A Non-Reactive screen result does not rule out exposure orinfection. If an acute infection is suspected, HIV RNA Quantitative is recommended. P24 Antigen (test code = P24) Non-Reactive Non-Reactive N P24 Ag screen result indicates the absence of P24 antigen, which is anindicator of HIV-1 acute infection.However, A Non-Reactive screen does not rule out exposure or infection.If acute HIV-1 is suspected, HIV RNA Quantitative is recommended. Hepatitis Acute [id number] 04:20:00* Test Item Value Reference Range Interpretation Comments Hep Bs Ag (test code = HBSAG) Nonreactive Non-Reactive A Hep C Ab (test code = HCAB) Reactive Non-Reactive A A Reactive result may indicate a past or present HCV infection orpossibly a carrier state. It is not diagnostic of Hepatitis C.However, a patient with a repeatedly Reactive result should beconsidered infectious. Reactive for HCV antibody by EIA screeningshould be confirmed by a supplemental test. Hepatitis A IgM (test code = HAVM) Nonreactive Non-Reactive A Hep B Core IgM (test code = HBCABM) Nonreactive Non-Reactive A C-Reactive Protein, [id number] 03:44:00* Test Item Value Reference Range Interpretation Comments CRP (test code = CRP) 187.1 mg/L 0.0-5.0 H XR ABDOMEN KUB [id number] 21:05:48LOCATION: [id number]: 32-year-old male, clinical question of ureteral stents.COMMENT:A supine radiograph of the abdomen was obtained. A CT study of the abdomen and pelvis obtained January 22, 2017 is availablefor comparison.Currently there are no stents seen in this KUB examination.The CT study demonstrated a left-sided ureteral stent which wasn'tsatisfactory position. Also noted in the CT study was a prior rightnephrectomy. A suprapubic catheter was also seen within the urinary bladder.Currently the examination demonstrates a central line located in therigh t groin return from the right leg with the tip located at the levelof the distal common iliac vein. Also seen is an ostomy in the left midabdomen which was pres ent on the previous CT study.A collection of calcifications are superimposed on the upper mid abdomenpossibly associated with the patient's upper lumbar spine i n keepingwith the CT findings.The intestinal gas pattern is unremarkable. No org anomegaly or massesare seen.IMPRESSION:This radiographic study of the abdomen de monstrates no evidencecurrently of a ureteral stent. Please see above comments f or details.Blood Gas+Lytes+Glu+Ca+Hgb+Hct+[id number] 17:48:00* Test Item Value Reference Range Interpretation Comments pH, Blood Gas (test code = BGPH) 7.677 pH Units 7.35-7.45 HH pCO2 (test code = PCO2) 11.4 mm Hg 35-45 LL pO2 (test code = PO2) 111.0 mm Hg 80-100 HH Bicarbonate (test code = HCO3) 13.3 mmol/L 22.0-26.0 LL Base Excess (test code = BE) -4.3 mmol/L O2 Saturation (test code = O2SAT) 99.7 % 80.0-100.0 N Sodium, Blood Gas (test code = BGNA) 143 mmol/L 135-145 N Potassium, Blood Gas (test code = BGK) 3.6 mmol/L 3.5-4.5 N Chloride, Blood Gas (test code = BGCL) 111 mmol/L 98-105 H Calcium, Ionized, Blood Gas (test code = BGCAI) 1.19 mmol/L 1.00-1 .50 N Glucose, Blood Gas (test code = BGGLU) 102 mg/dL 75-115 N tHB (test code = RTHB) 10.8 gm/dL 12.2-17.4 L Hematocrit, Blood Gas (test code = BGHCT) 33.2 % 34.0-52.0 L O2Hb (test code = RO2HB) 98 80-100 N Carboxyhemoglobin (test code = CARHGB) 1.4 % 0.0-20.0 N Methemoglobin (test code = METHGB) 0.8 % 0.0-20.0 N FIO2 % (test code = FIO2) 21 % Patient Temperature (test code = PTTEMP) 37.0 Degrees Celcius Comment (test code = COMMENT) qns/[id number] .cric.values.notified.svrt Puncture Site (test code = PUNSITE) Radial. R Drawing Tech ID (test code = DRAWTECH) sv iPAP (test code = IPAP) 0 cmH2O Respiratory Rate (test code = RESP RATE) 0 Lactic Acid, Blood Gas (test code = BGLA) 2.8 mmol/L CBC with [id number] 13:12:00* Test Item Value Reference Range Interpretation Comments WBC (test code = WBC) 23.4 K/cumm 4.4-10.5 H RBC (test code = RBC) 4.58 M/cumm 4.10-5.70 N Hemoglobin (test code = HGB) 11.8 gm/dL 13.4-17.4 L Hematocrit (test code = HCT) 38.2 % 38.7-52.0 L MCV (test code = MCV) 83.5 fL 80-100 N MCH (test code = MCH) 25.7 pg 27.0-32.5 L MCHC (test code = MCHC) 30.8 g/dL 32.0-37.5 L RDW (test code = RDW) 14.9 % 11.5-14.5 H Platelet Count (test code = PLTCT) 551 K/cumm 140-440 H MPV (test code = MPV) 6.9 fL Diff Method (test code = DIFFM) Manual Neutrophil (test code = NEUT) 86.0 % 36-70 H Bands (test code = BAND) 2.0 % 0-6 N Lymphocyte (test code = LYMPH) 9.0 % 12-44 L Monocyte (test code = MONO) 1.0 % 0-11 N Basophil (test code = BASO) 1.0 % 0-2 N Reactive Lymph (test code = RXNLYMP) 1.0 % 0.0-0.0 H Neutro Abs (test code = ANEUT) 20.6 K/cumm 1.6-7.4 H Lymph Abs (test code = ALYMPH) 2.1 K/cumm 0.5-4.6 N [place] Abs (test code = AMONO) 0.2 K/cumm 0.0-1.2 N Baso Abs (test code = ABASO) 0.2 K/cumm 0.00-0.21 N RBC Morphology (test code = RBCMRPH) Slight Anisocytosis Platelet Est (test code = PLTEST) Increased Platelet on Smear Urinalysis [id number] 13:04:00* Test Item Value Reference Range Interpretation Comments Color (test code = COLOR) Yellow Yellow,Straw,Pl yellow N Clarity (test code = CLAR) Cloudy Clear A Specific [place] (test code = SPGR) 1.025 1.001-1.035 N pH (test code = PH) 8.0 5.0-9.0 N Ketone (test code = KET) 15 mg/dL Negative A Glucose (test code = GLUCUR) Negative mg/dL Negative N Protein (test code = PROT) 500 mg/dL Negative A Bilirubin (test code = BILI) Negative mg/dL Negative N Occult Blood (test code = UDOB) Small Negative A Urobilinogen (test code = UROB) 0.2 mg/dL 0.2-1.0 N Nitrite (test code = NIT) Positive Negative A Leuk Esterase (test code = LEUK) Large Negative A Micros Exam (test code = MEXAM) Indicated Epithelial Cells (test code = EPI) 3-5 /LPF 0-30 A WBC, Urine (test code = UWBC) 11-20 /HPF 0-5 A RBC, Urine (test code = URBC) 6-10 /HPF 0-5 A Amorph Deposit (test code = AMORD) Many /HPF Bacteria (test code = BACT) Many /HPF Crystals (test code = STEWART) Many Triple Phosphate /HPF [id number] 13:03:00* Test Item Value Reference Range Interpretation Comments Amphetamine (test code = AMPH) POSITIVE Negative A For diagnostic purposes only, positive results should always be assessedin conjunctionwith the patient's medical history,clinical examination and otherfindings.To fulfill legal requirements, a more specific alternate chemical methodmust be used inorder to obtain a Confirmed analytical result. GC/MS is the preferred confirmatory method. Barbiturates (test code = GABINO) Negative Negative N Benzodiazepine (test code = AMRITA) POSITIVE Negative A Cocaine (test code = COCA) Negative Negative N Methadone (test code = MTHD) Negative Negative N Opiates (test code = OPIA) Negative Negative N PCP (test code = PCP) Negative Negative N Propoxyphene (test code = PROPOX) Negative Negative N THC (test code = THC) POSITIVE Negative A CT HEAD OR BRAIN WO [id number] 12:56:53EXAM: CT BRAIN WITHOUT CONTRASTINDICATION: Altered mental statusCOMPARISON: None availableTECHNIQUE: Routine axial noncontrast CT images of the brain wereobtained.IV contrast: None.DLP: 1018.1 mGy-cmFINDINGS: No intra-axial or extra-axial fluid collections are identified. No acutehemorrhage.There is normal differentiation of the hurley and white matter. Theventricles and sulci are normal in size and shape with no midline shiftor mass effect. The basal cisterns are patent. The posterior fossa andfourth ventricle are normal.The paranasal sinuses and mastoid air cells are clear. No calvariallesions. Skull base is intact. Orbits and globes are unremarkable.IMPRESSION:No acute intracranial abnormality. No intracranial hemorrhage.LOCATION: [id number] 12:56:00* Test Item Value Reference Range Interpretation Comments NT ProBnp (test code = PBNP) 541 pg/mL 0-124 H Alcohol/Ethanol, [id number] 12:50:00* Test Item Value Reference Range Interpretation Comments Alcohol, Ethyl (test code = ETOH) <0.01 g/dL 0.00-0.01 N Intoxicated 0.080 g/dL or more Lactic Acid [id number] 12:45:00* Test Item Value Reference Range Interpretation Comments Lactic Acid, Bld (test code = LAC) 1.4 mmol/L 0.5-1.9 N Comprehensive Metabolic [id number] 12:37:00* Test Item Value Reference Range Interpretation Comments Sodium (test code = NA) 138 mmol/L 135-145 N Potassium (test code = K) 3.6 mmol/L 3.5-5.1 N Chloride (test code = CL) 97 mmol/L 98-105 L Carbon Dioxide (test code = CO2) 23 mmol/L 22-29 N Glucose (test code = GLU) 100 mg/dL 70-115 N Blood Urea Nitrogen (test code = BUN) 20 mg/dL 6-20 N Creatinine (test code = CREAT) 1.3 mg/dL 0.7-1.2 H Calcium (test code = CA) 10.5 mg/dL 8.3-10.5 N Prot Total (test code = TP) 9.0 g/dL 6.4-8.3 H Albumin (test code = ALB) 4.0 g/dL 3.5-5.2 N A/G Ratio (test code = AGRATIO) 0.8 Ratio Globulin (test code = GLOB) 5.0 2.9-3.1 H Bili Total (test code = TBIL) 0.7 mg/dL 0.1-0.9 N Alk Phos (test code = APHOS) 100 U/L 40-129 N AST (test code = AST) 10 U/L 1-40 N ALT (test code = ALT) 8 U/L 1-41 N BUN/Creatinine Ratio (test code = BCRATIO) 15.4 Anion Gap (test code = AGAP) 18 mmol/L 7-16 H Estimated GFR (test code = GFR) >60 mL/min/1.73m2 eGFR (estimated Glomerular Filtration Rate) is an estimated value,calculated from the patient's serum creatinine using the MDRD equation.It is NOT the patient's actual GFR. The eGFR provides a more clinicallyuseful measure of kidney disease than serum creatinine alone.This calculation takes sex and race into account, if the informationis provided. If the race is not provided, and the patient isAfrican-Egyptian, multiply by 1.212. If sex is not provided, and thepatient is female, multiply by 0.742. Results for patients <18 years ofage have not been validated by the MDRD study and should be interpretedwith caution.eGFR Result Interpretation:eGFR > or = 60 is in the Normal RangeeGFR < 60 may mean kidney diseaseeGFR < 15 may mean kidney failureRanges recommended by the National Kidney Found ation,http://nkdep.nih.gov XR CHEST 1 [id number] 10:32:36EXAM: CHEST ONE VIEWINDICATION: SwellingCOMPARISON: January 29, 2017TECHNIQUE: AP view of the chest.FINDINGS: The cardiomediastinal silhouette is normal. There are mild congestivechanges bilaterally. No pneumothorax or pleural effusion is identified.The osseous structures are unremarkable.IMPRESSION: Mild congestive changes bilaterally.LOCATION: Q45Sdsbvxy, [id number] 08:44:00Specimen: UrineCollected: 02/01/2017 05:30 Status: Final Last Updated: 02/03/2017 08:43 Culture Result (Final) (Final) 02/02/17 <10,000 CFU/mL Yeast Comprehensive Metabolic [id number] 06:56:00* Test Item Value Reference Range Interpretation Comments Sodium (test code = NA) 132 mmol/L 135-145 L Potassium (test code = K) 5.2 mmol/L 3.5-5.1 H Chloride (test code = CL) 96 mmol/L 98-105 L Carbon Dioxide (test code = CO2) 25 mmol/L 22-29 N Glucose (test code = GLU) 105 mg/dL 70-115 N Blood Urea Nitrogen (test code = BUN) 33 mg/dL 6-20 H Creatinine (test code = CREAT) 1.4 mg/dL 0.7-1.2 H Calcium (test code = CA) 8.8 mg/dL 8.3-10.5 N Prot Total (test code = TP) 7.7 g/dL 6.4-8.3 N Albumin (test code = ALB) 3.7 g/dL 3.5-5.2 N A/G Ratio (test code = AGRATIO) 0.9 Ratio Globulin (test code = GLOB) 4.0 2.9-3.1 H Bili Total (test code = TBIL) <0.1 mg/dL 0.1-0.9 L Alk Phos (test code = APHOS) 85 U/L 40-129 N AST (test code = AST) 24 U/L 1-40 N ALT (test code = ALT) <5 U/L 1-41 N BUN/Creatinine Ratio (test code = BCRATIO) 23.6 Anion Gap (test code = AGAP) 11 mmol/L 7-16 N Estimated GFR (test code = GFR) >60 mL/min/1.73m2 eGFR (estimated Glomerular Filtration Rate) is an estimated value,calculated from the patient's serum creatinine using the MDRD equation.It is NOT the patient's actual GFR. The eGFR provides a more clinicallyuseful measure of kidney disease than serum creatinine alone.This calculation takes sex and race into account, if the informationis provided. If the race is not provided, and the patient isAfrican-Egyptian, multiply by 1.212. If sex is not provided, and thepatient is female, multiply by 0.742. Results for patients <18 years ofage have not been validated by the MDRD study and should be interpretedwith caution.eGFR Result Interpretation:eGFR > or = 60 is in the Normal RangeeGFR < 60 may mean kidney diseaseeGFR < 15 may mean kidney failureRanges recommended by the National Kidney Found ation,http://nkdep.nih.gov CBC with [id number] 06:53:00* Test Item Value Reference Range Interpretation Comments WBC (test code = WBC) 6.2 K/cumm 4.4-10.5 N RBC (test code = RBC) 3.27 M/cumm 4.10-5.70 L Hemoglobin (test code = HGB) 9.1 gm/dL 13.4-17.4 L Hematocrit (test code = HCT) 29.2 % 38.7-52.0 L MCV (test code = MCV) 89.2 fL 80-100 N MCH (test code = MCH) 27.9 pg 27.0-32.5 N MCHC (test code = MCHC) 31.2 g/dL 32.0-37.5 L RDW (test code = RDW) 17.8 % 11.5-14.5 H Platelet Count (test code = PLTCT) 317 K/cumm 140-440 N MPV (test code = MPV) 8.7 fL Diff Method (test code = DIFFM) Auto Neutrophil (test code = NEUT) 51.9 % 36-70 N Lymphocyte (test code = LYMPH) 34.5 % 12-44 N Monocyte (test code = MONO) 8.2 % 0-11 N Eosinophil (test code = EOS) 4.6 % 0-7 N Basophil (test code = BASO) 0.8 % 0-2 N Neutro Abs (test code = ANEUT) 3.2 K/cumm 1.6-7.4 N Lymph Abs (test code = ALYMPH) 2.1 K/cumm 0.5-4.6 N [place] Abs (test code = AMONO) 0.5 K/cumm 0.0-1.2 N Eos Abs (test code = AEOS) 0.28 K/cumm 0.00-0.74 N Baso Abs (test code = ABASO) 0.1 K/cumm 0.00-0.21 N Culture, [id number] 08:36:00Specimen: UrineCollected: 01/28/2017 15:00 Status: Final Last Updated: 01/30/2017 08:36 Culture Result (Final) (Final) 01/29/17 50,000 CFU/mL Yeast Basic Metabolic [id number] 06:05:00* Test Item Value Reference Range Interpretation Comments Sodium (test code = NA) 135 mmol/L 135-145 N Potassium (test code = K) 5.0 mmol/L 3.5-5.1 N Chloride (test code = CL) 97 mmol/L 98-105 L Carbon Dioxide (test code = CO2) 24 mmol/L 22-29 N Glucose (test code = GLU) 95 mg/dL 70-115 N Blood Urea Nitrogen (test code = BUN) 29 mg/dL 6-20 H Creatinine (test code = CREAT) 1.3 mg/dL 0.7-1.2 H Calcium (test code = CA) 9.0 mg/dL 8.3-10.5 N BUN/Creatinine Ratio (test code = BCRATIO) 22.3 Anion Gap (test code = AGAP) 14 mmol/L 7-16 N Estimated GFR (test code = GFR) >60 mL/min/1.73m2 eGFR (estimated Glomerular Filtration Rate) is an estimated value,calculated from the patient's serum creatinine using the MDRD equation.It is NOT the patient's actual GFR. The eGFR provides a more clinicallyuseful measure of kidney disease than serum creatinine alone.This calculation takes sex and race into account, if the informationis provided. If the race is not provided, and the patient isAfrican-Egyptian, multiply by 1.212. If sex is not provided, and thepatient is female, multiply by 0.742. Results for patients <18 years ofage have not been validated by the MDRD study and should be interpretedwith caution.eGFR Result Interpretation:eGFR > or = 60 is in the Normal RangeeGFR < 60 may mean kidney diseaseeGFR < 15 may mean kidney failureRanges recommended by the National Kidney Found ation,http://nkdep.nih.gov Gentamicin, [id number] 06:05:00* Test Item Value Reference Range Interpretation Comments Gent, Trough (test code = GENTTR) 0.4 ug/mL 0.0-2.0 N HIV [id number] 17:47:00* Test Item Value Reference Range Interpretation Comments HIV 1/2 Antibody (test code = HIV1/2AB) Non-Reactive Non-Reactive N HIV1/2 Antibody screen result indicates the absence of HIV1 and KTZ5ugynwqhpt.However, A Non-Reactive screen result does not rule out exposure orinfection. If an acute infection is suspected, HIV RNA Quantitative is recommended. P24 Antigen (test code = P24) Non-Reactive Non-Reactive N P24 Ag screen result indicates the absence of P24 antigen, which is anindicator of HIV-1 acute infection.However, A Non-Reactive screen does not rule out exposure or infection.If acute HIV-1 is suspected, HIV RNA Quantitative is recommended. Urinalysis [id number] 18:00:00* Test Item Value Reference Range Interpretation Comments Color (test code = COLOR) Yellow Yellow,Straw,Pl yellow N Clarity (test code = CLAR) Sl Cloudy Clear A Specific [place] (test code = SPGR) 1.009 1.001-1.035 N pH (test code = PH) 6.5 5.0-9.0 N Ketone (test code = KET) Negative mg/dL Negative N Glucose (test code = GLUCUR) Negative mg/dL Negative N Protein (test code = PROT) 75 mg/dL Negative A Bilirubin (test code = BILI) Negative mg/dL Negative N Occult Blood (test code = UDOB) Large Negative A Urobilinogen (test code = UROB) 0.2 mg/dL 0.2-1.0 N Nitrite (test code = NIT) Negative Negative N Leuk Esterase (test code = LEUK) Large Negative A Micros Exam (test code = MEXAM) Indicated Epithelial Cells (test code = EPI) 6-9 /LPF 0-30 A WBC, Urine (test code = UWBC) 50+ /HPF 0-5 A RBC, Urine (test code = URBC) 6-10 /HPF 0-5 A Bacteria (test code = BACT) Moderate /HPF [id number] 16:22:00* Test Item Value Reference Range Interpretation Comments Amphetamine (test code = AMPH) Negative Negative N For diagnostic purposes only, positive results should always be assessedin conjunctionwith the patient's medical history,clinical examination and otherfindings.To fulfill legal requirements, a more specific alternate chemical methodmust be used inorder to obtain a Confirmed analytical result. GC/MS is the preferred confirmatory method. Barbiturates (test code = GABINO) Negative Negative N Benzodiazepine (test code = AMRITA) POSITIVE Negative A Cocaine (test code = COCA) Negative Negative N Methadone (test code = MTHD) POSITIVE Negative A Opiates (test code = OPIA) Negative Negative N PCP (test code = PCP) Negative Negative N Propoxyphene (test code = PROPOX) Negative Negative N THC (test code = THC) Negative Negative N Gentamicin, [id number] 13:44:00* Test Item Value Reference Range Interpretation Comments Gent Randm (test code = GENTR) 4.9 ug/mL 0.0-2.0 HH VERIFIED BY REPEAT TESTING READ BACK LAB VALUES PAYALEma 1344 01/28/17 CA Basic Metabolic [id number] 07:04:00* Test Item Value Reference Range Interpretation Comments Sodium (test code = NA) 134 mmol/L 135-145 L Potassium (test code = K) 4.9 mmol/L 3.5-5.1 N Chloride (test code = CL) 98 mmol/L 98-105 N Carbon Dioxide (test code = CO2) 21 mmol/L 22-29 L Glucose (test code = GLU) 73 mg/dL 70-115 N Blood Urea Nitrogen (test code = BUN) 31 mg/dL 6-20 H Creatinine (test code = CREAT) 1.5 mg/dL 0.7-1.2 H Calcium (test code = CA) 9.1 mg/dL 8.3-10.5 N BUN/Creatinine Ratio (test code = BCRATIO) 20.7 Anion Gap (test code = AGAP) 15 mmol/L 7-16 N Estimated GFR (test code = GFR) 58 mL/min/1.73m2 eGFR (estimated Glomerular Filtration Rate) is an estimated value,calculated from the patient's serum creatinine using the MDRD equation.It is NOT the patient's actual GFR. The eGFR provides a more clinicallyuseful measure of kidney disease than serum creatinine alone.This calculation takes sex and race into account, if the informationis provided. If the race is not provided, and the patient isAfrican-Egyptian, multiply by 1.212. If sex is not provided, and thepatient is female, multiply by 0.742. Results for patients <18 years ofage have not been validated by the MDRD study and should be interpretedwith caution.eGFR Result Interpretation:eGFR > or = 60 is in the Normal RangeeGFR < 60 may mean kidney diseaseeGFR < 15 may mean kidney failureRanges recommended by the National Kidney Found ation,http://nkdep.nih.gov CBC with [id number] 06:45:00* Test Item Value Reference Range Interpretation Comments WBC (test code = WBC) 7.3 K/cumm 4.4-10.5 N RBC (test code = RBC) 3.27 M/cumm 4.10-5.70 L Hemoglobin (test code = HGB) 9.1 gm/dL 13.4-17.4 L Hematocrit (test code = HCT) 29.4 % 38.7-52.0 L MCV (test code = MCV) 89.9 fL 80-100 N MCH (test code = MCH) 27.8 pg 27.0-32.5 N MCHC (test code = MCHC) 30.9 g/dL 32.0-37.5 L RDW (test code = RDW) 17.1 % 11.5-14.5 H Platelet Count (test code = PLTCT) 299 K/cumm 140-440 N MPV (test code = MPV) 8.3 fL Diff Method (test code = DIFFM) Auto Neutrophil (test code = NEUT) 58.6 % 36-70 N Lymphocyte (test code = LYMPH) 30.8 % 12-44 N Monocyte (test code = MONO) 5.9 % 0-11 N Eosinophil (test code = EOS) 4.2 % 0-7 N Basophil (test code = BASO) 0.5 % 0-2 N Neutro Abs (test code = ANEUT) 4.3 K/cumm 1.6-7.4 N Lymph Abs (test code = ALYMPH) 2.3 K/cumm 0.5-4.6 N [place] Abs (test code = AMONO) 0.4 K/cumm 0.0-1.2 N Eos Abs (test code = AEOS) 0.31 K/cumm 0.00-0.74 N Baso Abs (test code = ABASO) 0.0 K/cumm 0.00-0.21 N Hypochromic (test code = HYPO) Slight Gentamicin, [id number] 22:40:00* Test Item Value Reference Range Interpretation Comments Gent Randm (test code = GENTR) >12.9 ug/mL 0.0-2.0 HH READ BACK LAB VALUESVERIFIED BY REPEAT TESTINGAryan @1040pm 01/27/2017 kms Culture, Blood [id number] 08:24:00Specimen: BloodCollected: 01/22/2017 01:46 Status: Final Last Updated: 01/27/2017 08:24 (1) ER Bed 3 Culture Result (Final) (Final) No Growth After 5 Days Culture, Blood Routine 2017-01-27 08:24:00Specimen: BloodCollected: 01/22/2017 01:30 Status: Final Last Updated: 01/27/2017 08:24 (1) ER Bed 3 Culture Result (Final) (Final) No Growth After 5 Days Gentamicin, [id number] 06:29:00* Test Item Value Reference Range Interpretation Comments Gent, Trough (test code = GENTTR) <0.4 ug/mL 0.0-2.0 N Basic Metabolic [id number] 05:54:00* Test Item Value Reference Range Interpretation Comments Sodium (test code = NA) 144 mmol/L 135-145 N Potassium (test code = K) 3.8 mmol/L 3.5-5.1 N Chloride (test code = CL) 108 mmol/L 98-105 H Carbon Dioxide (test code = CO2) 25 mmol/L 22-29 N Glucose (test code = GLU) 101 mg/dL 70-115 N Blood Urea Nitrogen (test code = BUN) 12 mg/dL 6-20 N Creatinine (test code = CREAT) 0.8 mg/dL 0.7-1.2 N Calcium (test code = CA) 9.2 mg/dL 8.3-10.5 N BUN/Creatinine Ratio (test code = BCRATIO) 15.0 Anion Gap (test code = AGAP) 11 mmol/L 7-16 N Estimated GFR (test code = GFR) >60 mL/min/1.73m2 eGFR (estimated Glomerular Filtration Rate) is an estimated value,calculated from the patient's serum creatinine using the MDRD equation.It is NOT the patient's actual GFR. The eGFR provides a more clinicallyuseful measure of kidney disease than serum creatinine alone.This calculation takes sex and race into account, if the informationis provided. If the race is not provided, and the patient isAfrican-Egyptian, multiply by 1.212. If sex is not provided, and thepatient is female, multiply by 0.742. Results for patients <18 years ofage have not been validated by the MDRD study and should be interpretedwith caution.eGFR Result Interpretation:eGFR > or = 60 is in the Normal RangeeGFR < 60 may mean kidney diseaseeGFR < 15 may mean kidney failureRanges recommended by the National Kidney Found ation,http://nkdep.nih.gov Culture, [id number] 08:30:00Specimen: UrineCollected: 01/21/2017 20:45 Status: Final Last Updated: 01/26/2017 08:30 Isolate (Final) (Final) 01/23/17 30,000 CFU/mL Klebsiella pneumoniae 01/25/17 Multi Drug Resistant Organism - Contact IsolationRecommended 01/25/17 Called to Yandy Milan RN at 0942/PXS Read Back Lab Value +01/26/17 Colistin 11mm: No interpretation by disc diffusion Amikacin 32 Intermediate Ampicillin >16 Resistant Ampicillin/Sulb >16/8 Resistant Cefazolin >16 Resistant Cefepime >16 Resistant Cefotaxime >32 Resistant Ceftazidime >16 Resistant Ceftriaxone >32 Resistant Cefuroxime >16 Resistant Ciprofloxacin >2 Resistant Gentamicin <=4 Susceptible Imipenem >8 Resistant Levofloxacin >4 Resistant Meropenem >8 Resistant Nitrofurantoin >64 Resistant Piperacillin/Tazo >64 Resistant Tobramycin >8 Resistant Trimethoprim/Sulfa > 2/38 Resistant Isolate (Final) (Final) 01/23/17 20,000 CFU/mL Klebsiella pneumoniae 01/25/17 Multi Drug Resistant Organism - Contact IsolationRecommen ded 01/25/17 Called to Yandy Milan RN at 0942/PXS Read Back Lab Value +01/26 Colistin 11mm: No interpretation by disc diffusion Amikacin <=16 Susceptible Ampicillin >16 Resistant Ampicillin/Sulb >16/8 Resistant Cefazolin >16 Resistant Cefepime >16 Resistant Cefotaxime >32 Resistant Ceftazidime >16 Resistant Ceftriaxone > 32 Resistant Cefuroxime >16 Resistant Ciprofloxacin >2 Resistant Gentamicin <=4 Susceptible Imipenem >8 Resistant Levofloxacin >4 Resistant Meropenem >8 Resistant Nitrofurantoin >64 Resistant Piperacillin/Tazo >64 Resistant Tobramycin 8 Intermediate Trimethoprim/Sulfa <=2/38 Susceptible Result added after release. Isolate (Final) (Final) 01/23/17 30,000 CFU/mL Klebsiella pneumoniae 01/25/17 Multi Drug Resistant Organism - Contact IsolationRecommended 01/25/17 Called to Yandy Milan RN at 0942/PXS Read Back Lab Value Amikacin 32 Intermediate Ampicillin >16 Resistant Ampicillin/Sulb >16/8 Resistant Cefazolin >16 Resistant Cefepime >16 Resistant Cefotaxime >32 Resistant Ceftazidime >16 Resistant Ceftriaxone >32 Resistant Cefuroxime >16 Resistant Ciprofloxacin >2 Resistant Gentamicin <=4 Susceptible Imipenem >8 Resistant Levofloxacin > 4 Resistant Meropenem >8 Resistant Nitrofurantoin >64 Resistant Piperacillin/Tazo >64 Resistant Tobramycin >8 Resistant Trimethoprim/Sulfa >2/38 Resistant Isolate (Final) (Final) 01/23/17 20,000 CFU/mL Klebsiella pneumoniae 01/25/17 Multi Drug Resistant Organism - Contact IsolationRecommended 01/25/17 Called to Yandy Milan RN at 0942/PXS Read Back Lab Value Amikacin <=16 Susceptible Ampicillin >16 Resistant Ampicillin/Sulb >16/8 Resistant Cefazolin >16 Resistant Cefepime >16 Resistant Cefotaxime >32 Resistant Ceftazidime >16 Resistant Ceftriaxone >32 Resistant Cefuroxime >16 Resistant Ciprofloxacin >2 Resistant Gentamicin <=4 Susceptible Imipenem >8 Resistant Levofloxacin >4 Resistant Meropenem >8 Resistant Nitrofurantoin >64 Resistant Piperacillin/Tazo >64 Resistant Tobramycin 8 Intermediate Trimethoprim/Sulfa <=2/38 Susceptible Gentamicin, Random 2017-01-26 03:14:00* Test Item Value Reference Range Interpretation Comments Gent Randm (test code = GENTR) <0.4 ug/mL 0.0-2.0 N Culture, Wound [id number] 09:49:00Specimen: ButtockCollected: 01/22/2017 08:00 Status: Final Last Updated: 01/25/2017 09:49 Gram Stain (Final) (Final) 01/22/17 No organsims seen, No WBC's seen Culture Result (Final) (Final) 01/23/17 Moderate Diphtheroids 01/25/17 Anaerobic culture:No anaerobes isolated at 3 days Isolate (Final) (Final) 01/23/17 Few Staph-coag positive 01/24/17 Methicillin Resistant Staph aureus- contact isolationrecommended 01/24/17 Called to Cierra Magallanes at 9:31am YA Read Back Lab Value Isolate Staph-coag positive NHUNG (mcg/ml) Amoxicillin/Clav (AUG)>4/2 Resistant Ampicillin (AM) >8 Resistant Ampicillin/Sulb (A/S) 16/8 Resistant Cefazolin (CFZ) > 16 Resistant Ceftriaxone (R[employer] ROLL[employer]TER) >32 Resistant Chloramphenicol (C) 16 Intermediate Ciprofloxacin (CP) >2 Resistant Clindamycin (CM) >4 Resistant Erythromycin (E) >4 Resistant Gentamicin (GM) >8 Resistant Imipenem (IMP) >8 Resistant Levofloxacin (LEV) >4 Resistant Linezolid (LNZ) 2 Susceptible Oxacillin (OX1) >2 Resistant Penicillin (P) >8 Resistant Rifampin (RA) <=1 Susceptible Tetracycline (TE) 2 Susceptible Trimethoprim/Sulfa < =0.5/9.Susceptible (SXT) 5 [facility]com[facility] (VA) [facility] [id number] 07:10:00* Test Item Value Reference Range Interpretation Comments Sodium (test code = NA) 135 mmol/L 135-145 N Potassium (test code = K) 5.3 mmol/L 3.5-5.1 H Chloride (test code = CL) 98 mmol/L 98-105 N Carbon Dioxide (test code = CO2) 22 mmol/L 22-29 N Glucose (test code = GLU) 90 mg/dL 70-115 N Blood Urea Nitrogen (test code = BUN) 24 mg/dL 6-20 H Creatinine (test code = CREAT) 1.4 mg/dL 0.7-1.2 H Calcium (test code = CA) 9.8 mg/dL 8.3-10.5 N Albumin (test code = ALB) 4.0 g/dL 3.5-5.2 N Phosphorus (test code = PO4) 3.7 mg/dL 2.70-4.50 N BUN/Creatinine Ratio (test code = BCRATIO) 17.1 Anion Gap (test code = AGAP) 15 mmol/L 7-16 N Estimated GFR (test code = GFR) >60 mL/min/1.73m2 eGFR (estimated Glomerular Filtration Rate) is an estimated value,calculated from the patient's serum creatinine using the MDRD equation.It is NOT the patient's actual GFR. The eGFR provides a more clinicallyuseful measure of kidney disease than serum creatinine alone.This calculation takes sex and race into account, if the informationis provided. If the race is not provided, and the patient isAfrican-Egyptian, multiply by 1.212. If sex is not provided, and thepatient is female, multiply by 0.742. Results for patients <18 years ofage have not been validated by the MDRD study and should be interpretedwith caution.eGFR Result Interpretation:eGFR > or = 60 is in the Normal RangeeGFR < 60 may mean kidney diseaseeGFR < 15 may mean kidney failureRanges recommended by the National Kidney Found ation,http://nkdep.nih.gov Magnesium, [id number] 06:55:00* Test Item Value Reference Range Interpretation Comments Magnesium (test code = MG) 1.2 mg/dL 1.7-2.5 L CBC with [id number] 06:48:00* Test Item Value Reference Range Interpretation Comments WBC (test code = WBC) 6.5 K/cumm 4.4-10.5 N RBC (test code = RBC) 3.56 M/cumm 4.10-5.70 L Hemoglobin (test code = HGB) 9.9 gm/dL 13.4-17.4 L Hematocrit (test code = HCT) 31.8 % 38.7-52.0 L MCV (test code = MCV) 89.2 fL 80-100 N MCH (test code = MCH) 27.7 pg 27.0-32.5 N MCHC (test code = MCHC) 31.0 g/dL 32.0-37.5 L RDW (test code = RDW) 17.0 % 11.5-14.5 H Platelet Count (test code = PLTCT) 292 K/cumm 140-440 N MPV (test code = MPV) 8.7 fL Diff Method (test code = DIFFM) Auto Neutrophil (test code = NEUT) 63.1 % 36-70 N Lymphocyte (test code = LYMPH) 27.6 % 12-44 N Monocyte (test code = MONO) 5.5 % 0-11 N Eosinophil (test code = EOS) 3.4 % 0-7 N Basophil (test code = BASO) 0.4 % 0-2 N Neutro Abs (test code = ANEUT) 4.1 K/cumm 1.6-7.4 N Lymph Abs (test code = ALYMPH) 1.8 K/cumm 0.5-4.6 N [place] Abs (test code = AMONO) 0.4 K/cumm 0.0-1.2 N Eos Abs (test code = AEOS) 0.22 K/cumm 0.00-0.74 N Baso Abs (test code = ABASO) 0.0 K/cumm 0.00-0.21 N Hypochromic (test code = HYPO) Slight Comprehensive Metabolic [id number] 08:28:00* Test Item Value Reference Range Interpretation Comments Sodium (test code = NA) 139 mmol/L 135-145 N Potassium (test code = K) 4.8 mmol/L 3.5-5.1 N Chloride (test code = CL) 102 mmol/L 98-105 N Carbon Dioxide (test code = CO2) 22 mmol/L 22-29 N Glucose (test code = GLU) 94 mg/dL 70-115 N Blood Urea Nitrogen (test code = BUN) 22 mg/dL 6-20 H Creatinine (test code = CREAT) 1.4 mg/dL 0.7-1.2 H Calcium (test code = CA) 8.8 mg/dL 8.3-10.5 N Prot Total (test code = TP) 6.7 g/dL 6.4-8.3 N Albumin (test code = ALB) 3.6 g/dL 3.5-5.2 N A/G Ratio (test code = AGRATIO) 1.2 Ratio Globulin (test code = GLOB) 3.1 2.9-3.1 N Bili Total (test code = TBIL) <0.1 mg/dL 0.1-0.9 L Alk Phos (test code = APHOS) 114 U/L 40-129 N AST (test code = AST) 15 U/L 1-40 N ALT (test code = ALT) 21 U/L 1-41 N BUN/Creatinine Ratio (test code = BCRATIO) 15.7 Anion Gap (test code = AGAP) 15 mmol/L 7-16 N Estimated GFR (test code = GFR) >60 mL/min/1.73m2 eGFR (estimated Glomerular Filtration Rate) is an estimated value,calculated from the patient's serum creatinine using the MDRD equation.It is NOT the patient's actual GFR. The eGFR provides a more clinicallyuseful measure of kidney disease than serum creatinine alone.This calculation takes sex and race into account, if the informationis provided. If the race is not provided, and the patient isAfrican-Egyptian, multiply by 1.212. If sex is not provided, and thepatient is female, multiply by 0.742. Results for patients <18 years ofage have not been validated by the MDRD study and should be interpretedwith caution.eGFR Result Interpretation:eGFR > or = 60 is in the Normal RangeeGFR < 60 may mean kidney diseaseeGFR < 15 may mean kidney failureRanges recommended by the National Kidney Found ation,http://nkdep.nih.gov CBC with [id number] 08:10:00* Test Item Value Reference Range Interpretation Comments WBC (test code = WBC) 7.2 K/cumm 4.4-10.5 N RBC (test code = RBC) 3.44 M/cumm 4.10-5.70 L Hemoglobin (test code = HGB) 9.6 gm/dL 13.4-17.4 L Hematocrit (test code = HCT) 30.8 % 38.7-52.0 L MCV (test code = MCV) 89.6 fL 80-100 N MCH (test code = MCH) 28.0 pg 27.0-32.5 N MCHC (test code = MCHC) 31.2 g/dL 32.0-37.5 L RDW (test code = RDW) 17.6 % 11.5-14.5 H Platelet Count (test code = PLTCT) 288 K/cumm 140-440 N MPV (test code = MPV) 8.3 fL Diff Method (test code = DIFFM) Auto Neutrophil (test code = NEUT) 59.2 % 36-70 N Lymphocyte (test code = LYMPH) 27.2 % 12-44 N Monocyte (test code = MONO) 10.8 % 0-11 N Eosinophil (test code = EOS) 2.3 % 0-7 N Basophil (test code = BASO) 0.4 % 0-2 N Neutro Abs (test code = ANEUT) 4.3 K/cumm 1.6-7.4 N Lymph Abs (test code = ALYMPH) 2.0 K/cumm 0.5-4.6 N [place] Abs (test code = AMONO) 0.8 K/cumm 0.0-1.2 N Eos Abs (test code = AEOS) 0.17 K/cumm 0.00-0.74 N Baso Abs (test code = ABASO) 0.0 K/cumm 0.00-0.21 N Hypochromic (test code = HYPO) Slight CK [id number] 21:36:00* Test Item Value Reference Range Interpretation Comments CK (test code = CK) Hide U/L 39-308 N CKMB (test code = CKMB) 2.0 ng/mL 0.0-4.9 N CKMB% (test code = CKMBP) Hide % 0.0-3.4 N Glycosylated [id number] 20:34:00* Test Item Value Reference Range Interpretation Comments HBA1c (test code = HBA1C) 5.0 % 4.8-5.9 N Troponin [id number] 20:06:00* Test Item Value Reference Range Interpretation Comments Troponin T (test code = YVONNE) <0.010 ng/mL 0.000-0.090 N [id number] 20:06:00* Test Item Value Reference Range Interpretation Comments Potassium (test code = K) 4.7 mmol/L 3.5-5.1 N [id number] 15:44:00* Test Item Value Reference Range Interpretation Comments Potassium (test code = K) 7.1 mmol/L 3.5-5.1 HH VE RIFIED BY REPEAT TESTINGREAD BACK LAB VALUESOZI RN 15:43 01/22/2017 OG [id number] 11:41:00* Test Item Value Reference Range Interpretation Comments Amphetamine (test code = AMPH) Negative Negative N For diagnostic purposes only, positive results should always be assessedin conjunctionwith the patient's medical history,clinical examination and otherfindings.To fulfill legal requirements, a more specific alternate chemical methodmust be used inorder to obtain a Confirmed analytical result. GC/MS is the preferred confirmatory method. Barbiturates (test code = GABINO) Negative Negative N Benzodiazepine (test code = AMRITA) POSITIVE Negative A Cocaine (test code = COCA) Negative Negative N Methadone (test code = MTHD) Negative Negative N Opiates (test code = OPIA) Negative Negative N PCP (test code = PCP) Negative Negative N Propoxyphene (test code = PROPOX) Negative Negative N THC (test code = THC) Negative Negative N CK [id number] 11:08:00* Test Item Value Reference Range Interpretation Comments CK (test code = CK) n/a U/L 39-308 N CKMB (test code = CKMB) 1.9 ng/mL 0.0-4.9 N CKMB% (test code = CKMBP) 0.0 % 0.0-3.4 N Troponin [id number] 10:54:00* Test Item Value Reference Range Interpretation Comments Troponin T (test code = YVONNE) <0.010 ng/mL 0.000-0.090 N Lactic Acid [id number] 10:29:00* Test Item Value Reference Range Interpretation Comments Lactic Acid, Bld (test code = LAC) 1.0 mmol/L 0.5-1.9 N CK [id number] 10:05:00* Test Item Value Reference Range Interpretation Comments CK (test code = CK) n/a U/L 39-308 N CKMB (test code = CKMB) 2.0 ng/mL 0.0-4.9 N CKMB% (test code = CKMBP) 0.0 % 0.0-3.4 N Troponin [id number] 09:55:00* Test Item Value Reference Range Interpretation Comments Troponin T (test code = YVONNE) <0.010 ng/mL 0.000-0.090 N C-Reactive Protein, [id number] 08:04:00* Test Item Value Reference Range Interpretation Comments CRP (test code = CRP) 48.0 mg/L 0.0-5.0 H [id number] 08:04:00* Test Item Value Reference Range Interpretation Comments Phosphorus (test code = PO4) 3.1 mg/dL 2.70-4.50 N Magnesium, [id number] 08:04:00* Test Item Value Reference Range Interpretation Comments Magnesium (test code = MG) 1.2 mg/dL 1.7-2.5 L Thyroid Stimulating Hormone (TSH)2017-01-22 08:03:00* Test Item Value Reference Range Interpretation Comments TSH (test code = TSH) 0.76 mIU/mL 0.270-4.200 N Sed Rate ESR ([place])2017-01-22 07:01:00* Test Item Value Reference Range Interpretation Comments ESR (test code = HESR) 53 mm/Hr 0-9 H Lactic Acid [id number] 02:07:00* Test Item Value Reference Range Interpretation Comments Lactic Acid, Bld (test code = LAC) 0.9 mmol/L 0.5-1.9 N Comprehensive Metabolic [id number] 01:41:00* Test Item Value Reference Range Interpretation Comments Sodium (test code = NA) 135 mmol/L 135-145 N Potassium (test code = K) see comment mmol/L 3.5-5.1 N Hemolyzed K+6.53 Chloride (test code = CL) 101 mmol/L 98-105 N Carbon Dioxide (test code = CO2) 21 mmol/L 22-29 L Glucose (test code = GLU) 89 mg/dL 70-115 N Blood Urea Nitrogen (test code = BUN) 31 mg/dL 6-20 H Creatinine (test code = CREAT) 1.2 mg/dL 0.7-1.2 N Calcium (test code = CA) 10.1 mg/dL 8.3-10.5 N Prot Total (test code = TP) 8.1 g/dL 6.4-8.3 N Albumin (test code = ALB) 4.1 g/dL 3.5-5.2 N A/G Ratio (test code = AGRATIO) 1.0 Ratio Globulin (test code = GLOB) 4.0 2.9-3.1 H Bili Total (test code = TBIL) 0.2 mg/dL 0.1-0.9 N Alk Phos (test code = APHOS) 135 U/L 40-129 H AST (test code = AST) 47 U/L 1-40 H ALT (test code = ALT) 36 U/L 1-41 N BUN/Creatinine Ratio (test code = BCRATIO) 25.8 Anion Gap (test code = AGAP) 13 mmol/L 7-16 N Estimated GFR (test code = GFR) >60 mL/min/1.73m2 eGFR (estimated Glomerular Filtration Rate) is an estimated value,calculated from the patient's serum creatinine using the MDRD equation.It is NOT the patient's actual GFR. The eGFR provides a more clinicallyuseful measure of kidney disease than serum creatinine alone.This calculation takes sex and race into account, if the informationis provided. If the race is not provided, and the patient isAfrican-Egyptian, multiply by 1.212. If sex is not provided, and thepatient is female, multiply by 0.742. Results for patients <18 years ofage have not been validated by the MDRD study and should be interpretedwith caution.eGFR Result Interpretation:eGFR > or = 60 is in the Normal RangeeGFR < 60 may mean kidney diseaseeGFR < 15 may mean kidney failureRanges recommended by the National Kidney Found ation,http://nkdep.nih.gov [id number] 01:41:00* Test Item Value Reference Range Interpretation Comments Lipase (test code = LIP) 15 U/L 13-60 N CBC with [id number] 01:07:00* Test Item Value Reference Range Interpretation Comments WBC (test code = WBC) 14.1 K/cumm 4.4-10.5 H RBC (test code = RBC) 4.05 M/cumm 4.10-5.70 L Hemoglobin (test code = HGB) 11.3 gm/dL 13.4-17.4 L Hematocrit (test code = HCT) 35.5 % 38.7-52.0 L MCV (test code = MCV) 87.7 fL 80-100 N MCH (test code = MCH) 27.9 pg 27.0-32.5 N MCHC (test code = MCHC) 31.8 g/dL 32.0-37.5 L RDW (test code = RDW) 17.6 % 11.5-14.5 H Platelet Count (test code = PLTCT) 341 K/cumm 140-440 N MPV (test code = MPV) 7.9 fL Diff Method (test code = DIFFM) Auto Neutrophil (test code = NEUT) 70.3 % 36-70 H Lymphocyte (test code = LYMPH) 18.3 % 12-44 N Monocyte (test code = MONO) 7.1 % 0-11 N Eosinophil (test code = EOS) 2.7 % 0-7 N Basophil (test code = BASO) 0.5 % 0-2 N Neutro Abs (test code = ANEUT) 9.9 K/cumm 1.6-7.4 H Lymph Abs (test code = ALYMPH) 2.6 K/cumm 0.5-4.6 N [place] Abs (test code = AMONO) 1.0 K/cumm 0.0-1.2 N Eos Abs (test code = AEOS) 0.38 K/cumm 0.00-0.74 N Baso Abs (test code = ABASO) 0.1 K/cumm 0.00-0.21 N RBC Morphology (test code = RBCMRPH) Slight Anisocytosis Platelet Est (test code = PLTEST) Adequate Platelets on Smear Urinalysis [id number] 00:14:00* Test Item Value Reference Range Interpretation Comments Color (test code = COLOR) Straw Yellow,Straw,Pl yellow N Clarity (test code = CLAR) Sl Cloudy Clear A Specific [place] (test code = SPGR) 1.009 1.001-1.035 N pH (test code = PH) 5.0 5.0-9.0 N Ketone (test code = KET) Negative mg/dL Negative N Glucose (test code = GLUCUR) Negative mg/dL Negative N Protein (test code = PROT) 75 mg/dL Negative A Bilirubin (test code = BILI) Negative mg/dL Negative N Occult Blood (test code = UDOB) Moderate Negative A Urobilinogen (test code = UROB) 0.2 mg/dL 0.2-1.0 N Nitrite (test code = NIT) Negative Negative N Leuk Esterase (test code = LEUK) Large Negative A Micros Exam (test code = MEXAM) Indicated Epithelial Cells (test code = EPI) 3-5 /LPF 0-30 A WBC, Urine (test code = UWBC) 41-50 /HPF 0-5 A RBC, Urine (test code = URBC) None Seen /HPF 0-5 A Bacteria (test code = BACT) Moderate /HPF
[2020-03-18] MEDS ORDERED: VANCOMYCIN 1GM/NS 250 ML 250 ML IV ONE (10:30)
--- NOTE | 2020-03-18 10:45 | Diagnostic Imaging Report ---
ADDENDUM #1 Original report stated right PICC. However, patient has a right internal jugular central venous catheter in place. Signed by: Gera Sutherland MD on 03/18/2020 11:08 AM ORIGINAL REPORT EXAMINATION: CHEST SINGLE (PORTABLE) INDICATION: Low blood pressure COMPARISON: None FINDINGS: TUBES and LINES: Right PICC which terminates in the right atrium. LUNGS: Low lung volumes with bronchovascular crowding. There is patchy interstitial and airspace opacities throughout both lungs with superimposed bibasilar atelectasis. PLEURA: No pleural effusion or pneumothorax. HEART AND MEDIASTINUM: The cardiomediastinal silhouette is unremarkable. BONES AND SOFT TISSUES: No acute osseous lesion. Soft tissues are unremarkable. UPPER ABDOMEN: No free air under the diaphragm. IMPRESSION: Patchy interstitial and airspace opacities throughout both lungs which may be due to low lung volumes with bronchovascular crowding and atelectasis versus developing multifocal pneumonia. Signed by: Gera Sutherland MD on 03/18/2020 10:42 AM
[2020-03-18 11:01] LABS: BASOPHILS # (AUTO) 0.1 (0.0-0.1); BASOPHILS % 0.4 % (0.0-1.0); EOSINOPHILS # (AUTO) 0.1 (0.0-0.4); EOSINOPHILS % 0.4 % (0.0-6.0); HEMATOCRIT 23.1 % (38.2-49.6); HEMOGLOBIN 7.1 g/dL (14.0-18.0); LYMPHOCYTES # (AUTO) 1.5 (1.0-3.2); LYMPHOCYTES % 12.8 % (18.0-39.1); MEAN CORPUSCULAR HGB CONC 30.7 g/dL (31-35); MEAN CORPUSCULAR VOLUME 84.6 fL (81-99); MONOCYTES # (AUTO) 0.6 (0.2-0.8); MONOCYTES % 4.9 % (4.4-11.3); NEUTROPHILS # (AUTO) 9.2 (2.1-6.9); NEUTROPHILS % 80.8 % (38.7-80.0); PLATELET COUNT 95 x10e3/uL (140-360); RED BLOOD COUNT 2.73 x10e6/uL (4.3-5.7)
[2020-03-18 11:06] LABS: CLARITY,URINE SL CLOUDY (CLEAR); COLOR,URINE YELLOW (YELLOW)
[2020-03-18 11:07] LABS: BILIRUBIN,URINE NEGATIVE (NEGATIVE); KETONES,URINE NEGATIVE (NEGATIVE); LEUKOCYTE ESTERASE ,URINE SMALL (NEGATIVE); NITRITE,URINE NEGATIVE (NEGATIVE); PROTEIN,URINE DIPSTICK >=300 (NEGATIVE); URINE UROBILINOGEN 0.2 mg/dL (0.2 - 1)
[2020-03-18 11:08] LABS: BACTERIA,URINE RARE /HPF; EPITHELIAL CELLS,URINE FEW /LPF
[2020-03-18 11:10] LABS: INR 1.03
[2020-03-18 11:19] LABS: ALBUMIN 2.5 g/dL (3.5-5.0); ALBUMIN/GLOBULIN RATIO 0.5 (0.8-2.0); ANION GAP 17.2 mmol/L (8-16); CALCIUM 8.3 mg/dL (8.4-10.2); CREATININE, SERUM 2.94 mg/dL (0.72-1.25); POTASSIUM 5.2 mmol/L (3.5-5.1)
[2020-03-18 11:26] LABS: CREATINE KINASE MB 0.8 ng/mL (0-5.0)
[2020-03-18 11:33] LABS: BENZODIAZEPINES SCREEN,URINE POSITIVE (NEGATIVE)
[2020-03-18 11:35] LABS: AMPHETAMINES SCREEN,URINE NEGATIVE (NEGATIVE); PHENCYCLIDINE SCREEN,URINE NEGATIVE (NEGATIVE)
--- NOTE | 2020-03-18 12:09 | Diagnostic Imaging Report ---
EXAMINATION: Head CT HISTORY: 35-year-old male with altered mental status COMPARISON: None. TECHNIQUE: Helical axial images of the head were obtained. Reformatted coronal and sagittal images from the axial data. Dose modulation, iterative reconstruction, and/or weight based adjustment of the mA/kV was utilized to reduce the radiation dose to as low as reasonably achievable. Image quality: Motion/streaking artifact limits the evaluation of the skull base and posterior cranial fossa. FINDINGS: Parenchyma: 1. No abnormal densities. 2. No mass or hemorrhage. No CT evidence of acute territorial vascular insult. Extra-axial spaces:No abnormal density. No extra-axial fluid collections Brain volume: Normal for age. Ventricles: No hydrocephalus or displacement. Arteries: No density suggestive of thrombus. Dural sinuses: No abnormal density. Foramen magnum: No mass, Chiari malformation, or basilar invagination. Sella: No obvious mass. Paranasal/mastoid sinuses: Imaged portions unremarkable. Skull/Scalp: No lytic or blastic lesions. No fractures. IMPRESSION: Normal head CT. Signed by: Dr. Patt Aldana M.D. on 03/18/2020 12:05 PM
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
[2020-03-18] MEDS ORDERED: ONDANSETRON HCL INJ 2MG/ML 2ML 2 MG/ML VIAL IV PRN (14:15)
--- OUTSIDE RECORDS SUMMARY | 2020-03-18 14:26 | XMS REPORT | Clinical Summary ---
Author Author [facility] ict Organization [facility] ict Address Unknown Phone Unavailable Care Team Providers Care Assistant Drafter Name Role Phone PCP Unavailable Allergies Comments [...] / Dates Group MEDICARE MEDICARE xxxxxxxxxx 2008-P [phone] [id number] [place] [address] [place] MEDICAID [id number] xxxxxxxxx 2016- 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
--- OUTSIDE RECORDS SUMMARY | 2020-03-18 14:27 | XMS REPORT | Clinical Summary ---
Author Author [facility] [employer] [facility] Organization [facility] [employer] [facility] Address Unknown Phone Unavailable Care Team Providers Care College Teacher Name Role Phone Trent Barrios MD PCP [...] B MEDICAID MEDICAID xxxxxxxxx Medicaid [place] [id number] Advance Directives For more information, please contact: [facility] [address] [place] [id number] Date Inactivated Comments Code Status Date Activated 07/25/2016 3:35 PM Full Code 07/22/2016 9:08 PM This code status was determined by: Patient
--- OUTSIDE RECORDS SUMMARY | 2020-03-18 14:27 | XMS REPORT | Clinical Summary ---
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 Acute renal failure [...] SIRS (systemic inflammatory response syndrome) (HCC) 01/10/2020 [facility] Internal Ne dicine - Encounter 01/13/2020 01/10/2020 Travel Jimmy Merchant MD Roberts, Matthew Thomas, DO Batson, Derek, MD Sepsis, due to unspecified organism, uns pecified whether acute organ dysfunction present (HCC) (Primary Dx); Acute renal failure, unspecified acute renal failure type (HCC); Hyperkalemia 12/20/2019 [facility] dicine - Encounter 12/29/2019 12/20/2019 Travel [facility] 10/26/2019 Patient Quality Outreach [facility] 10/26/2019 Patient Quality Outreach [facility] 10/25/2019 Patient Quality Outreach Enzo Cheng MD Secondary hypertension (Primary Dx) 10/22/2019 Emergency Emergency Medicine 10/22/2019 Travel Benny Almanzar MD Abouelsaad, Mai Abdelmoneim E.S, MD Bavare, MD Chris Sutherland, Guido Dutta MD Urinary tract infection associated with cystostomy catheter, initial encounter (HCC) (Primary Dx); Pyelonephritis 10/15/2019 [facility] General Surgery - Encounter 10/22/2019 10/15/2019 Travel Nina Jones MA 09/20/2019 Telephone Urology Zen Jesus MD 08/31/2019 Telephone Urology Bairon Quiros MD 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); Decubitus ulcer of ischial area, stage 4, unspecified laterality (HCC) 08/17/2019 [facility] Usp Care Acut e - Encounter 09/13/2019 Radha [...] with cystostomy catheter, initial encounter (HCC) 08/06/2019 [facility] dicine - Encounter 08/17/2019 Francisco Arboleda MD Bokhari, MD Dhruv Nayak Umar, MD Joglekar, Swati, MD Bavare, Chas Sylvester, MD Jimenes, MD Grant Hypertensive urgency, malignant (Primary Dx); Altered mental status, unspecified altered mental status type; Sepsis, due to unspecified organism (HCC); Urinary tract infection associated with cystostomy catheter, initial encounter (HCC) 03/29/2019 [facility] General Surgery - Encounter 04/10/2019 after 03/18/2019 [...] Manufactur er 08/03/2022 1896 [id number] / / [id number] Screw Bone Lkng Fulthrd Ti 5x55mm - Hip Joint Right: Tib ia MARK [id number] Implants ORTHOPEDIC Implanted: 03/03/2018 at [facility] (Quantity not on file) 12/01/2022 1896 [id number] / / [id number] Screw Bone Lkng Fulthrd Ti 5x50mm - Hip Joint Right: Tib ia MARK [id number] Implants ORTHOPEDIC Implanted: 03/03/2018 at [facility] (Quantity not on file) 01/03/2024 AF 1000 / [id number] / [id number] Amniofill 1000mg Human Placental Human Left: N/A MIMEDX Tissue Allograft - [id number] - Tissue GROUP I NC [id number] Implants Implanted: Qty: 1 on 08/14/2019 by Radha Borja MD at [facility] 12/01/2022 1896 [id number] / / [id number] T2 F/T Locking Screw 5mmx42.5mm - IPM Right: Back, MARK [id number] IMPLANT Other than ORTHOPEDIC Implanted: 03/03/2018 at [facility] (Quantity not on file) 11/01/2022 1822 [id number] / / [id number] Nail Tib Std Ti [id number] Strl T2 - Orthopedic Right: Tibi a MARK [id number] Trauma ORTHOPEDIC Implanted: 03/03/2018 at [facility] (Quantity not on file) 11/01/2022 1896 [id number] / / [id number] Screw Bone Lkng Fulthrd Ti 5x47.5mm Orthopedic Right: Tib ia MARK - [id number] Trauma ORTHOPEDIC Implanted: 03/03/2018 at [facility] (Quantity not on file) [id number] / / Catheter Cv Powerhickman Dlmn 9.5fr Surgical N/A: N/A BARD Intrmedt Tray - [id number] Implants; ACCESS Implanted: 12/05/2017 at [facility] (Quantity not on file) Extenders; Surgical Wires 09/03/2022 [id number] / / [id number] Catheter Cv Powerline Dlmn Al 6fr - Surgical N/A: N/A BARD [id number] Implants; ACCESS Implanted: 07/31/2018 at [facility] Expanders; [facility] (Quantity not on file) Extenders; Surgical [...] WO STAT 01/11/2020 CONTRAST 12:20 AM CDT [place] CRITICAL CARE, E/M Routine 01/10/2020 30-74 MINUTES [...] & Routine 12/20/2019 ANAEROBIC 6:54 PM CDT [place] CRITICAL CARE, ADDL 30 Routine 12/20/2019 MIN 6:43 PM CDT [place] CRITICAL CARE, E/M Routine 12/20/2019 30-74 MINUTES [...] CDT SMEAR REVIEW Routine 09/12/2019 5:03 AM [facility] CONCIERGE ESTIMATED GFR Routine 09/12/2019 5:03 AM HEALTH CONCIERGE BASIC METABOLIC PANEL Routine 09/12/2019 5:03 AM HEALTH CONCIERGE HC COMPLETE BLD COUNT Routine 09/12/2019 W/AUTO DIFF 5:03 AM HEALTH CONCIERGE ESTIMATED GFR Routine 08/25/2019 5:57 AM HEALTH CONCIERGE BASIC METABOLIC PANEL Routine 08/25/2019 5:57 AM HEALTH CONCIERGE HC COMPLETE BLD COUNT Routine 08/25/2019 W/AUTO DIFF 5:57 AM [facility] CONCIERGE URINE DRUGS OF ABUSE Routine 08/19/2019 SCREEN 1:10 PM HEALTH CONCIERGE ESTIMATED GFR Routine 08/19/2019 4:00 AM [facility]ALTH CONCIERGE THYROID STIMULATING Routine 08/19/2019 HORMONE 4:00 AM [facility] CONCIERGE COMPREHENSIVE METABOLIC Routine 08/19/2019 PANEL 4:00 AM HEALTH CONCIERGE HC COMPLETE BLD COUNT Routine 08/19/2019 W/AUTO DIFF 4:00 AM HEALTH CONCIERGE ESTIMATED GFR Routine 08/16/2019 6:42 AM HEALTH CONCIERGE BASIC METABOLIC PANEL Routine 08/16/2019 6:42 AM HEALTH CONCIERGE TN AN ELECTIVE Routine 08/14/2019 ENDOTRACHEAL AIRWAY 10:42 AM HEALTH CONCIERGE SURGICAL PATHOLOGY Routine 08/14/2019 REQUEST 9:49 AM HEALTH CONCIERGE ESTIMATED GFR Routine 08/14/2019 5:37 AM HEALTH CONCIERGE BASIC METABOLIC PANEL Routine 08/14/2019 5:37 AM HEALTH CONCIERGE ESTIMATED GFR Routine 08/12/2019 6:32 AM HEALTH CONCIERGE HC COMPLETE BLD COUNT Routine 08/12/2019 W/AUTO DIFF 6:32 AM HEALTH CONCIERGE BASIC METABOLIC PANEL Routine 08/12/2019 6:32 AM HEALTH CONCIERGE ESTIMATED GFR Routine 08/11/2019 6:32 AM HEALTH CONCIERGE HC COMPLETE BLD COUNT Routine 08/11/2019 W/AUTO DIFF 6:32 AM HEALTH CONCIERGE BASIC METABOLIC PANEL Routine 08/11/2019 6:32 AM HEALTH CONCIERGE ESTIMATED GFR Routine 08/10/2019 4:33 AM HEALTH CONCIERGE HC COMPLETE BLD COUNT Routine 08/10/2019 W/AUTO DIFF 4:33 AM HEALTH CONCIERGE BASIC METABOLIC PANEL Routine 08/10/2019 4:33 AM [facility]ALTH CONCIERGE BLOOD CULTURE, AEROBIC & Routine 08/10/2019 ANAEROBIC 4:33 AM [facility]ALTH CONCIERGE BLOOD CULTURE, AEROBIC & Routine 08/10/2019 ANAEROBIC 4:29 AM HEALTH CONCIERGE ESTIMATED GFR Routine 08/09/2019 4:36 AM HEALTH CONCIERGE BASIC METABOLIC PANEL Routine 08/09/2019 4:36 AM HEALTH CONCIERGE HC COMPLETE BLD COUNT Routine 08/09/2019 W/AUTO DIFF 4:36 AM HEALTH CONCIERGE ESTIMATED GFR Routine 08/08/2019 5:00 AM [facility]ALTH CONCIERGE BASIC METABOLIC PANEL Routine 08/08/2019 5:00 AM HEALTH CONCIERGE CBC WITH PLATELET AND Routine 08/08/2019 DIFFERENTIAL 5:00 AM HEALTH CONCIERGE XR CHEST 1 VW PORTABLE Routine 08/07/2019 11:45 AM HEALTH CONCIERGE ESTIMATED GFR Routine 08/07/2019 6:56 AM HEALTH CONCIERGE BASIC METABOLIC PANEL Routine 08/07/2019 6:56 AM HEALTH CONCIERGE PROTHROMBIN TIME WITH INR Routine 08/07/2019 6:56 AM HEALTH CONCIERGE HC COMPLETE BLD COUNT Routine 08/07/2019 W/AUTO DIFF 6:[address] ABDOMEN PELVIS WO STAT 08/06/2019 CONTRAST 5:38 PM HEALTH CONCIERGE GRAM STAIN STAT 08/06/2019 5:07 PM [facility]ALTH CONCIERGE URINE CULTURE STAT 08/06/2019 5:07 PM HEALTH CONCIERGE ESTIMATED GFR STAT 08/06/2019 4:30 PM HEALTH CONCIERGE LIPASE LEVEL STAT 08/06/2019 4:30 PM [facility]ALTH CONCIERGE COMPREHENSIVE METABOLIC STAT 08/06/2019 PANEL 4:30 PM HEALTH CONCIERGE HC COMPLETE BLD COUNT STAT 08/06/2019 W/AUTO DIFF 4:30 PM HEALTH CONCIERGE URINALYSIS SCREEN AND STAT 08/06/2019 MICROSCOPY, WITH REFLEX 4:14 PM HEALTH CONCIERGE TO CULTURE ESTIMATED GFR Routine 04/10/2019 5:36 [...] CATH DUAL LUMEN PICC # Routine 04/02/2019 [id number] 2:26 PM CDT HC US GUIDED VASCULAR [...] 03/30/2019 CONTRAST, W DOPPLER 4:32 PM CDT ([id number]) TROPONIN Timed 03/30/2019 5:58 AM CDT ECG [...] 03/29/2019 CONTRAST, W DOPPLER 5:12 PM CDT ([id number]) LACTIC ACID LEVEL, SEPSIS Timed 03/29/2019 - [...] included. Estimated GFR 51 (A) mL/min/1.73 m2 [place] Comment: ORTHODOXY Catergory Units [facility] G1 >=90 Normal or high G2 60-89 [...] Performing Organization Address City/State/Zipcode Ph one Number [facility] OF [address] [place] [address] PATHOLOGY AND GENOMIC MEDICINE [facility] [address] [place] [address] HOSPITAL * CBC with platelet and differential (01/13/2020 6:13 AM CDT) Only the most recent of 29 results within the time period is included. WBC 5.8 4.2 - 11.0 k/uL [facility] RBC 3.66 (L) 4.04 - 5.86 m/uL [facility] HGB 9.7 (L) 13.0 - 17.3 g/dL [facility] HCT 32.2 (L) 34.0 - 45.0 % [facility] MCV 88.0 80.0 - 98.0 fL [facility] MCH 26.5 (L) 27.0 - 34.0 pg [facility] MCHC 30.1 (L) 31.5 - 36.5 g/dL [facility] RDW - SD 60.1 (H) 37.0 - 51.0 fL [facility] MPV 10.1 7.4 - 10.4 fL [facility] Platelet count 384 150 - 400 k/uL [facility] Nucleated RBC 0.00 /100 WBC [facility] Neutrophils 50.8 36.0 - 66.0 % [facility] Lymphocytes 33.9 24.0 - 44.0 % [facility] Monocytes 9.3 (H) 0.0 - 6.0 % [facility] Eosinophils 4.7 0.0 - 6.0 % [facility] Basophils 1.0 0.0 - 1.2 % [facility] Immature 0.3 0.0 - 1.0 % [place] granulocytes [facility] Specimen Blood Performing Organization Address City/State/[facility] Ph one Number [facility] OF [address] [place] [address] PATHOLOGY AND GENOMIC MEDICINE [facility] [address] [place] [address] HOSPITAL * Basic metabolic panel (01/13/2020 6:13 AM CDT) Only the most recent of 41 results within the time period is included. Sodium 137 135 - 150 mEq/L [facility] Potassium 4.7 3.5 - 5.0 mEq/L [facility] Chloride 107 98 - 112 mEq/L [facility] CO2 19 (L) 24 - 31 mmol/L [facility] Anion gap 11@ANIO 7 - 15 mEq/L [facility] BUN 22 (H) 7 - 18 mg/dL [facility] Creatinine 1.70 (H) 0.70 - 1.20 mg/dL [facility] Glucose 89 65 - 100 mg/dL [facility] Calcium 8.8 8.3 - 10.2 mg/dL [facility] Specimen Blood Performing Organization Address City/[facility] Ph one Number [facility] OF [address] [place] [address] PATHOLOGY AND GENOMIC MEDICINE [facility] [address] * Lactic acid level, SEPSIS - Now and repeat 2x every 3 hours (01/11/2020 4:41 AM CDT) Only the most recent of 9 results within the time period is included. Lactic acid 1.3 0.5 - 2.2 mmol/L [facility] Specimen Blood Performing Organization Address City/State/Zipcode Ph one Number [facility] OF [address] [place] [address] PATHOLOGY AND GENOMIC MEDICINE [facility] [address] [facility] [place] [address] HOSPITAL * Troponin (01/11/2020 4:41 AM CDT) Only the most recent of 12 results within the time period is included. Troponin <0.006 0.000 - 0.040 ng/mL [place] Comment: ORTHODOXY In patients suspected of [facility] having a myocardial HOSPITAL infarction, along with [...] 0.020 ng/mL Specimen Blood Performing Organization Address City/State/[facility]i Ph one Number [facility] [address] [place] [address] PATHOLOGY AND GENOMIC MEDICINE [place] ORTHODOXY [facility] [address] [place] [phone] HOSPITAL * MRI Foot Wo Contrast Right [...] and acknowledged understanding of the find ngs. [facility]-[id number] Procedure Note Hm Interface, Radiology Results Incoming [...] AM and acknowledged understanding of the findings. [facility]-[id number] Performing Organization Address City/State/Zipcode Ph one Number [facility] [address] [place] [address] * CT Abdomen Pelvis Wo Contrast (01/11/2020 [...] seen to suggest abscess at this time. [facility]-[id number] Procedure Note Interface, Radiology Results Incoming - [...] seen to suggest abscess at this time. [facility]-[id number] Performing Organization Address City/State/Zipcode Ph one Number [facility] [address] [place] [address] * CRITICAL CARE (01/10/2020 11:02 PM CDT) [...] culture Escherichia coli EB isolate >10-5 cfu/ml ORTHODOXY [facility] HOSPITAL characteristics of this assay on this isolate were validated by the Microbiology Laboratory at [facility]. This source has not been approved by the U.S. Food and Drug Administration. The results are not intended to be used as the sole means for clinical diagnosis or patient management. The Microbiology Laboratory is authorized under the clinical Laboratory Improvement Amendments of 1988 (CLIA-88) to perform high complexity testing. This isolate is a bit setter of ESBL (extended spectrum beta lactamase). This organism may be clinically resistant to penicillins, cephalosporins or aztreonam despite apparent in vitro susceptibility to some of these agents. This is a carbapenemase producing organism. It is resistant to Imipenem, Meropenem and Ertapenem. This organism is multi-drug resistant. (A) Comment: Specimen Information Specimen Source: Urine Specimen Site: Clean catch Urine culture Providencia stkellyrtii [place] isolate >10-5 cfu/ml ORTHODOXY The performance HOSPITAL characteristics of this assay on this isolate were validated by the Microbiology Laboratory at [facility]. This source has not been approved by [...] mcg/mL: Resistant Providencia stuartii Performing Organization Address City/[facility] Ph one Number [facility] DEPARTMENT OF [address] [place] [address] PATHOLOGY AND GENOMIC MEDICINE [facility] [address] [place] [address] [facility] * Urinalysis screen and microscopy, with reflex to culture (01/10/2020 10:43 PM CDT) Only the most recent of 6 results within the time period is included. Specimen site Clean catch [facility] Color, UA Sasha [facility] Appearance, UA Turbid [facility] Specific 1.018 1.001 - 1.035 [place] gravity, [facility] pH, UA 6.0 5.0 - 8.5 [facility] Protein, UA 3+ (A) Negative [facility] Glucose, UA Negative Negative [facility] Ketones, UA Negative Negative [facility] Bilirubin, UA Negative Negative [facility] Blood, UA Small (A) Negative [facility] Nitrite, UA Negative Negative [facility] Urobilinogen, Negative <2.0 [facility] Leukocyte Large (A) Negative [place] esterase, [facility] WBC, UA >200 (H) 0 - 1 /HPF [facility] RBC, UA 19 (H) 0 - 5 /HPF [facility] Bacteria, UA Few None seen [facility] Yeast, UA None seen [facility] Yeast with None seen [place] pseud[facility]yphaeTHE [facility] Specimen Urine Performing Organization Address City/[facility] [place] Ph one Number [facility] OF [address] [place] [phone] PATHOLOGY AND GENOMIC MEDICINE [facility] [address] [place] [address] HOSPITAL * Beta hydroxybutyrate (01/10/2020 10:08 PM CDT) Beta 0.05 0.02 - 0.27 mmol/L [place] hydroxybutyrate [facility] Specimen Blood Performing Organization Address City/[facility] Ph one Number [facility] OF [address] [facility] [place] [address] PATHOLOGY AND GENOMIC MEDICINE [facility] [address] * Blood culture, aerobic & anaerobic (01/10/2020 10:08 PM CDT) Only the most recent of 8 results within the time period is included. Pathologist [facility] Blood culture No growth after 5 days of [place] isolate incubation. ORTHODOXY Comment: HOSPITAL Specimen Information Specimen Source: Blood Specimen Site: [facility] Specimen Blood Performing Organization Address City/[facility] [place] Ph one Number [facility] DEPARTMENT OF [address] [place] [address] PATHOLOGY AND [facility] MEDICINE [address] * Partial thromboplastin time, activated (01/10/2020 10:08 PM CDT) Only the most recent of 4 results within the time period is included. Pathologist [facility] PTT 32.8 23.0 - 36.0 sec [place] Comment: ORTHODOXY PTT therapeutic range for [facility] unfractionated heparin is HOSPITAL 61.0-112.0 seconds which corresponds to Anti-Xa 0.3-0.7 U/ml. Specimen Blood Performing Organization Address City/[facility] [place] Ph one Number [facility] OF [address] [place] [address] PATHOLOGY AND GENOMIC MEDICINE [facility] [address] * Prothrombin time with INR (01/10/2020 10:08 PM CDT) Only the most recent of 4 results within the time period is included. Pathologist [facility] Prothrombin 13.3 11.5 - 14.5 sec [facility] INR 1.01 [place] Comment: ORTHODOXY For patients on anticoagulant [facility] therapy, reference ranges HOSPITAL below: Indication: INR Value Treatment of Venous Thrombosis, 2.0-3.0 pulmonary emboli, or prophylaxis of a venous thrombosis, or systemic emboli. High dose, high risk patients 3.0-4.5 with mechanical valves. NOTE: INR values over 3.0 are sometimes associated with gastrointestinal hemorrhage, especially values over 4.0. Specimen Blood Performing Organization Address City/[facility] [place] Ph one Number [facility] [place] [address] [place] [address] PATHOLOGY AND GENOMIC MEDICINE [address] * B natriuretic peptide (01/10/2020 10:08 PM CDT) Only the most recent of 5 results within the time period is included. BNP 11 0 - 100 pg/mL [facility] Specimen Blood Performing Organization Address City/[facility] [place] Ph one Number [facility] OF [address] [place] [address] PATHOLOGY AND GENOMIC MEDICINE [address] * Lipase level (01/10/2020 10:08 PM CDT) Only the most recent of 3 results within the time period is included. Lipase 42 13 - 60 U/L [facility] Specimen Blood Performing Organization Address City/[facility] [place] Ph one Number [facility] OF [address] [place] [address] PATHOLOGY AND GENOMIC MEDICINE [address] * Creatine kinase, total (CPK) (01/10/2020 10:08 PM CDT) Only the most recent of 2 results within the time period is included. Creatine kinase 122 39 - 308 U/L [facility] Specimen Blood Performing Organization Address City/[facility] [place] Ph one Number [facility] OF [address] [place] [address] PATHOLOGY AND GENOMIC MEDICINE [address] * Comprehensive metabolic panel (01/10/2020 10:08 PM CDT) Only the most recent of 5 results within the time period is included. Sodium 134 (L) 135 - 150 mEq/L [facility] Potassium 4.0 3.5 - 5.0 mEq/L [facility] Chloride 97 (L) 98 - 112 mEq/L [facility] CO2 18 (L) 24 - 31 mmol/L [facility] Anion gap 19@ANIO (H) 7 - 15 mEq/L [facility] BUN 25 (H) 7 - 18 mg/dL [facility] Creatinine 2.20 (H) 0.70 - 1.20 mg/dL [facility] Glucose 106 (H) 65 - 100 mg/dL [facility] Calcium 9.7 8.3 - 10.2 mg/dL [facility] Protein 9.8 (H) 6.3 - 8.3 g/dL [facility] Albumin 2.9 (L) 3.5 - 5.0 g/dL [facility] A/G ratio 0.4 (L) 0.7 - 3.8 [facility] Alkaline 109 0 - 129 U/L [place] phosphatase [facility] AST 13 10 - 50 U/L [facility] ALT 8 5 - 50 U/L [facility] Total bilirubin 0.3 0.2 - 1.2 mg/dL [facility] Specimen Blood Performing Organization Address City/[facility] Ph one Number [facility] OF [address] [place] [address] PATHOLOGY AND GENOMIC MEDICINE [address] * POC glucose (01/10/2020 9:59 PM CDT) Only the most recent of 6 results within the time period is included. POC glucose 100 65 - 100 mg/dL [place] Comment: ORTHODOXY Tying Machine Operator Lumber Name: Magno Mcgregor [facility] Device ID: [id number] [facility] Specimen Blood Performing Organization Address City/[facility] Ph one Number [facility] OF [address] [place] [address] PATHOLOGY AND GENOMIC MEDICINE [address] * ECG 12 lead (01/10/2020 9:52 PM CDT) Only the most recent of 8 results within the time period is included. Ventricular 115 [facility] rate Atrial rate 115 [facility] TN interval 136 [facility] QRSD interval 90 [facility] QT interval 310 [facility] QTC interval 428 [facility] P axis 1 47 [facility] QRS axis 1 -11 [facility] T wave axis 3 [facility] EKG impression Sinus tachycardia-Otherwise [facility] MUSE normal ECG-In automated comparison with ECG of -2019 19:30,-Inverted T waves have replaced nonspecific T wave abnormality in Inferior leads- Specimen Narrative Performed At This result has an attachment that is n ot available. Performing Organization Address City/[facility] [place] Ph one Number [facility] MUSE [address] [place] [address] * Manual differential (12/26/2019 5:22 AM CDT) Only the most recent of 5 results within the time period is included. Manual PERFORMED [place] differential [facility] Neutrophils 38.0 36.0 - 66.0 % [facility] Lymphocytes 47.0 (H) 24.0 - 44.0 % [facility] Monocytes 7.0 (H) 0.0 - 6.0 % [facility] Eosinophils 7.0 (H) 0.0 - 6.0 % [facility] Basophils 1.0 0.0 - 1.2 % [facility] Metamyelocytes 0 0 - 1 % [facility] Promyelocytes 0 0 - 1 % [facility] Platelet slide Chuyita adequate [place] review [facility] Anisocytosis 1+ [facility] Ovalocytes 1+ [facility] [place] cells 1+ [facility] Specimen Performing Organization Address City/State/[facility] Ph one Number [facility] DEPARTMENT OF [address] [place] [address] PATHOLOGY AND GENOMIC MEDICINE [place] [address] [place] [address] HOSPITAL * Phosphorus level (12/24/2019 10:23 AM CDT) Only the most recent of 8 results within the time period is included. Phosphorus 4.9 (H) 2.4 - 4.5 mg/dL [facility] Specimen Blood Performing Organization Address [facility] [place] Ph one Number [facility] DEPARTMENT OF [address] [facility] [place] [address] PATHOLOGY AND GENOMIC MEDICINE [facility] [address] [place] [address] HOSPITAL * Magnesium level (12/24/2019 10:23 AM CDT) Only the most recent of 8 results within the time period is included. Magnesium 1.10 (L) 1.60 - 2.60 mg/dL [facility] Specimen Blood Performing Organization Address [facility] [place] Ph one Number [facility] DEPARTMENT OF [address] [place] [address] PATHOLOGY AND GENOMIC MEDICINE [address] * Occult blood, stool (12/22/2019 11:30 PM CDT) Occult blood, Negative for occult blood. [place] stool Comment: ORTHODOXY Specimen Information [facility] Specimen Source: Stool HOSPITAL Specimen Site: Nonpreserved Specimen Stool - Nonpreserved Performing Organization Address [facility] [place] Ph one Number [facility] DEPARTMENT OF [address] [facility] [place] [address] PATHOLOGY AND GENOMIC MEDICINE [facility] [address] [place] [address] HOSPITAL * Sodium level, urine, random (12/22/2019 9:47 PM CDT) Sodium, urine, 79 mEQ/L [facility] Specimen Urine - Urine, clean catch Performing Organization Address [facility] [place] Ph one Number [facility] DEPARTMENT OF [address] [facility] [place] [address] PATHOLOGY AND GENOMIC MEDICINE [facility] [address] [facility] [address] * Protein, urine, random (12/22/2019 9:47 PM CDT) Protein, urine 60 mg/dL [place] random [facility] Specimen Urine - Urine, clean catch Performing Organization Address [facility] [place] Ph one Number [facility] DEPARTMENT OF [address] [place] [address] PATHOLOGY AND GENOMIC MEDICINE [facility] [address] * Potassium, urine, random (12/22/2019 9:47 PM CDT) Potassium, 12 mEq/L [place] urine, random [facility] Specimen Urine - Urine, clean catch Performing Organization Address [facility] [place] Ph one Number [facility] DEPARTMENT OF [address] [place] [address] PATHOLOGY AND GENOMIC MEDICINE [address] * Creatinine level, urine, random (12/22/2019 9:47 PM CDT) Creatinine, 22 mg/dL [place] urine, random [facility] Specimen Urine - Urine, clean catch Performing Organization Address [facility] [place] Ph one Number [facility] DEPARTMENT OF [address] [place] [address] PATHOLOGY AND GENOMIC MEDICINE [facility] [address] [place] [address] * Hemoglobin & hematocrit (12/22/2019 9:42 PM CDT) Only the most recent of 4 results within the time period is included. HGB 8.2 (L) 13.0 - 17.3 g/dL [facility] HCT 26.8 (L) 34.0 - 45.0 % [facility] Specimen Blood Performing Organization Address [facility] [place] Ph one Number [facility] DEPARTMENT OF [address] [place] [address] PATHOLOGY AND GENOMIC MEDICINE [facility] [address] [place] [address] HOSPITAL * MRI Ankle Wo Contrast Right [...] findings as above [id number] Performing Organization Address City/State/[facility] Cent[facility]ode Ph one Number [facility] [address] [place] [address] * MRI Lower Extremity Wo Contrast Right [...] nail and motion [id number] Performing Organization Address City/[facility] Cent[facility]ode Ph one Number [facility] [address] [place] [address] * Vancomycin level, random (12/22/2019 7:04 AM CDT) Only the most recent of 2 results within the time period is included. Vancomycin, 19.0 ug/mL [place] random Comment: ORTHODOXY Therapeutic Ranges: [facility] Peak 30.0 - HOSPITAL 40.0 ug/mL Trough 10.0 - 20.0 ug/mL Specimen Blood Performing Organization Address City/[facility] [place] Ph one Number [facility] DEPARTMENT OF [address] [facility] [place] [address] PATHOLOGY AND GENOMIC MEDICINE [place] ORTHODOXY [facility] [address] [facility] [address] [place], [place] [address] [place] [address] * US Renal (12/21/2019 5:15 PM CDT) [...] 8. Calculi: No calculi 9. Other Findings:None [facility]-[id number] Procedure Note Hm Interface, Radiology Results Incoming [...] 8. Calculi: No calculi 9. Other Findings:None [id number] Performing Organization Address City/State/Zipcode Ph one Number [facility] [address] [facility] [place] [address] * XR Tibia Fibula 2 Vw Right (12/21/2019 8:04 AM CDT) Specimen Narrative Performed At Procedure:XR TIBIA FIBULA 2 VW RIGHT [facility] REFERRING PHYSICIAN: MCIHAEL CLAYTON HISTORY: Swelling redness and pain COMPARISON: [...] of the right ti cleopatra or fibula. [id number] Procedure Note Interface, Radiology Results Incoming - [...] dislocation of the right tibia or fibula. [id number] Performing Organization Address City/State/Zipcode Ph one Number [facility] [address] [place] [address] * XR Ankle 3+ Vw Right (12/21/2019 [...] There are no findings to indicate osteomyelitis. [facility]-[id number] Dictated and approved by radiology resi dent/fellow: [...] There are no findings to indicate osteomyelitis. [facility]-[id number] Dictated and approved by care program resident/fellow: Harvey Mcallister M.D. I, Jair Thibodeaux, personally reviewed the images and resident's/fellow's findings and agree with the final report. Performing Organization Address City/State/[facility]ode Ph one Number KASANDRA BRADY [address] [place] [address] * Transfuse RBC (12/21/2019 4:12 AM CDT) * Prepare RBC, 1 Units (12/20/2019 7:48 PM CDT) Only the most recent of 2 results within the time period is included. Product name Red Blood Cells -1, Leukored HOUS N [facility] Unit number [id number] [facility] Product code [id number] [facility] Dispense status Transfused [facility] Blood [id number] [place] expiration date [facility] Blood type code 6200 [facility] Blood type A POSITIVE [facility] Compatibility Compatible [facility] Specimen Blood Performing Organization Address City/[facility] Ph one Number [facility] DEPARTMENT OF [address] [place] [address] [place] [address] PATHOLOGY AND GENOMIC MEDICINE [address] [place] [address] HOSPITAL * Type and screen (12/20/2019 7:48 PM CDT) ABO grouping A [facility] Rh type POS [facility] Antibody screen NEG [place] (gel) [facility] Specimen Blood Performing Organization Address City/State/[facility] Ph one Number [facility] DEPARTMENT OF [address] [place] [address] [place] [address] PATHOLOGY AND GENOMIC MEDICINE [address] [place] [address] HOSPITAL * Smear review (12/20/2019 6:54 PM CDT) Only the most recent of 4 results within the time period is included. Platelet slide Chuyita adequate [place] review [facility] Anisocytosis 1+ [facility] Specimen Performing Organization Address City/State/Zipcode Ph one Number [facility] DEPARTMENT OF [address] [place] [address] PATHOLOGY AND GENOMIC MEDICINE [facility] [address] [place] [address] HOSPITAL * Hepatic function panel (12/20/2019 6:54 PM CDT) Only the most recent of 2 results within the time period is included. Albumin 2.4 (L) 3.5 - 5.0 g/dL [facility] Total bilirubin 0.3 0.2 - 1.2 mg/dL [facility] Bilirubin <0.2 0.0 - 0.4 mg/dL [place] direct [facility] Alkaline 82 0 - 129 U/L [place] phosphatase [facility] Protein 8.4 (H) 6.3 - 8.3 g/dL [facility] ALT 8 5 - 50 U/L [facility] AST 13 10 - 50 U/L [facility] Specimen Blood Performing Organization Address City/State/[facility] [place] Ph one Number [facility] DEPARTMENT OF [address] [place] [address] PATHOLOGY AND GENOMIC MEDICINE [facility] [address] * CRITICAL CARE (12/20/2019 6:43 PM [...] AM CDT) Respiratory Negative for all pathogens [place] pathogen panel tested: ORTHODOXY Negative for Adenovirus HOSPITAL Negative for Coronavirus [...] Specimen Nares - Right Performing Organization Address City/State/Zipcomi Ph one Number [facility] DEPARTMENT OF [address] [place] [address] PATHOLOGY AND GENOMIC MEDICINE [address] * Urine drugs of abuse screen (10/17/2019 2:03 AM CDT) Only the most recent of 3 results within the time period is included. Amphetamine Negative [place] screen, urine ORTHODOXY [facility] Barbiturate Negative [place] screen, urine ORTHODOXY [facility] Benzodiazepine Negative [place] screen, urine ORTHODOXY [facility] Cocaine screen, Negative [place] urine [facility] Methadone Negative [place] metabolite [facility] (EDDP), urine [facility] Opiates screen, Negative [place] urine [facility] Oxycodone Negative [place] screen, urine [facility] Phencyclidine Negative [place] screen, urine [facility] Cannabinoid Positive (A) [place] screen, urine Comment: ORTHODOXY Drug screen minimum [facility] concentration of detectability HOSPITAL Amphetamines 1000 ng/mL [...] is required. Specimen Urine Performing Organization Address City/[facility] [place] Ph one Number [facility] DEPARTMENT OF [address] [place] [address] PATHOLOGY AND GENOMIC MEDICINE [facility] [address] [place], [place] [id number] [place] [address] * XR Chest 1 Vw Portable (10/16/2019 4:55 PM CDT) Only the most recent of 6 results within the time period is included. Specimen Narrative Performed At XR CHEST 1 VW PORTABLE [facility] CLINICAL INDICATION: elevated white c ount COMPARISON: 08/07/2019. IMPRESSION: The lungs are clear of focal consolidat ion. The cardiomediastinal silhouette demonstrates a normal contour. There is no pleural effusion or gross pneumothorax. There are no acute osseou s abnormalities. [facility]-[id number] Procedure Note Interface, Radiology Results Incoming - 10/16/2019 5:00 PM CDT XR CHEST 1 VW PORTABLE CLINICAL INDICATION: elevated white count COMPARISON: 08/07/2019. IMPRESSION: The lungs are clear of focal consolidation. The cardiomediastinal silhouette demonstrates a normal contour. There is no pleural effusion or gross pneumothorax. There are no acute osseous abnormalities. [facility]-[id number] Performing Organization Address [facility] one Number [facility] [address] [place] [address] * CT Abdomen Pelvis W Contrast (10/16/2019 12:28 AM CDT) Specimen Narrative Performed At CT ABDOMEN PELVIS W CONTRAST [facility] CL[facility]ICAL IND[facility]: eval for renal o [...] hydronephrosis. 4. Other stable/incidental findings as above. [facility]-[id number] Procedure Note [facility], Radiology Results Incoming - 10/16/2019 12:44 [...] 4. Other stable/incidental findings as a jazzmine. [facility]-[id number] Performing Organization Address [facility] [place] Ph one Number [facility] [address] [place] [address] * Thyroid stimulating hormone (08/19/2019 4:00 AM [facility]) TSH 3.57 0.55 - 4.78 uIU/mL [facility] Specimen Serum Performing Organization Address City/[facility] Centercode Ph one Number [facility] [address] [place] [address] PATHOLOGY AND GENOMIC MEDICINE [facility] [address] [place] [address] [facility] * Airway (08/14/2019 10:42 AM [facility]) Narrative Performed At Alejo Bedolla CRNA 0 [...] * Surgical pathology request (08/14/2019 9:49 AM [facility]) [facility] DEPARTMENT OF PATHOLOGY AND GENOMIC MEDICINE Surgical See link below for PDF Lab [facility] DEPAR TMENT pathology Report OF PATHOLOGY report AND GENOMIC MEDICINE Result status This is Final Report for [facility] DEPARTM ENT [id number] OF PATHOLOGY AND GENOMIC MEDICINE Specimen Performing Organization Address City/[facility] [place] Ph one Number [facility] DEPARTMENT OF [address] [place] [address] PATHOLOGY AND GENOMIC MEDICINE * Gram stain (08/06/2019 5:07 PM [facility]) Only the most recent of 3 results within the time period is included. Gram stain No WBC's [place] result Occasional Gram negative rods [facility] Comment: HOSPITAL Specimen Information Specimen Source: Urine Specimen Site: Clean catch Specimen Urine Performing Organization Address [facility] [place] Ph one Number [facility] DEPARTMENT OF [address] [place] [address] PATHOLOGY AND GENOMIC MEDICINE [place] ORTHODOXY [address] [place] [address] * IR Non-Tunneled Central Line Placement (04/07/2019 [...] catheter. Procedure Placement of a nontunneled right leadership program intern al jugular vein central venous catheter. Technique [...] was removed; and f ollowing dilatation, a 7-Kyrgyz, 15 cm long triple-lumen central venous cathet [...] and fluoroscopy guided place ment of a 7-Kyrgyz, 15 cm long triple lumen central venous catheter via the r ight internal jugular vein, as detailed above. The catheter tip lies at the rig ht atrium/superior vena cava junction and is ready for use. [id number] Procedure Note Hm Interface, Radiology Results Incoming [...] sheath was removed; and following dilatation, a 7-Kyrgyz, 15 cm long triple-lumen central venous catheter [...] Ultrasound and fluoroscopy guided placement of a 7-Kyrgyz, 15 cm long triple lumen central venous catheter via the right internal jugular vein, as detailed above. The catheter tip lies at the right atrium/superior vena cava junction and is ready for use. [id number] Performing Organization Address City/State/[facility] [place] Ph one Number [facility] [address] [place] [address] * US Guided Vascular Access (04/07/2019 9:33 [...] catheter. Procedure Placement of a nontunneled right leadership program intern al jugular vein central venous catheter. Technique [...] was removed; and f ollowing dilatation, a 7-Kyrgyz, 15 cm long triple-lumen central venous cathet [...] and fluoroscopy guided place ment of a 7-Kyrgyz, 15 cm long triple lumen central venous catheter via the r ight internal jugular vein, as detailed above. The catheter tip lies at the rig ht atrium/superior vena cava junction and is ready for use. [id number] Procedure Note Hm Interface, Radiology Results Incoming [...] sheath was removed; and following dilatation, a 7-Kyrgyz, 15 cm long triple-lumen central venous catheter [...] Ultrasound and fluoroscopy guided placement of a 7-Kyrgyz, 15 cm long triple lumen central venous catheter via the right internal jugular vein, as detailed above. The catheter tip lies at the right atrium/superior vena cava junction and is ready for use. [id number] Performing Organization Address City/State/[facility] Centercomi Ph one Number [facility] [address] [place] [address] * CBC hemogram (04/06/2019 5:36 AM CDT) Only the most recent of 6 results within the time period is included. WBC 10.7 4.2 - 11.0 k/uL [facility] RBC 5.24 4.04 - 5.86 m/uL [facility] HGB 12.1 (L) 13.0 - 17.3 g/dL [facility] HCT 41.7 34.0 - 45.0 % [facility] MCV 79.6 (L) 80.0 - 98.0 fL [facility] MCH 23.1 (L) 27.0 - 34.0 pg [facility] MCHC 29.0 (L) 31.5 - 36.5 g/dL [facility] RDW - SD 51.8 (H) 37.0 - 51.0 fL [facility] MPV 10.3 7.4 - 10.4 fL [facility] Platelet count 472 (H) 150 - 400 k/uL [facility] Nucleated RBC 0.00 /100 WBC [facility] Specimen Blood Performing Organization Address City/[facility] [place] Ph one Number [facility] DEPARTMENT OF [address] [place] [address] PATHOLOGY AND GENOMIC MEDICINE [facility] [address] [facility] [address] * Potassium level (04/05/2019 3:40 PM CDT) Potassium 4.6 3.5 - 5.0 mEq/L [facility] Specimen Plasma specimen Performing Organization Address [facility] one Number [facility] DEPARTMENT OF [address] [place] [address] PATHOLOGY AND GENOMIC MEDICINE [address] * Vancomycin level, trough (04/04/2019 10:00 AM CDT) Vancomycin, 21.6 (HH) 10.0 - 20.0 ug/mL [place] trough Comment: ORTHODOXY Therapeutic Ranges: [facility] Peak 30.0 - HOSPITAL 40.0 ug/mL Trough 10.0 - 20.0 ug/mL Results called to and read back by HORACE TOBIN RN/ICU 04/04/2019 10:51 JLFA. Specimen Blood Performing Organization Address [facility] one Number [facility] DEPARTMENT OF [address] [place] [address] PATHOLOGY AND GENOMIC MEDICINE [facility] [address] [place] [address] * CT Angiogram Pe Chest (04/03/2019 [...] noted. There is no acute skeletal finding. [facility]-[id number] Procedure Note Interface, Radiology Results - 04/03/2019 [...] noted. There is no acute skeletal finding. [facility]-[id number] Performing Organization Address City/State/Zipcode Ph one Number [facility] [address] [place] [address] * Arterial blood gas (04/03/2019 4:20 AM CDT) Only the most recent of 3 results within the time period is included. 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 Machine Operator Lumber SUSAN [facility] O2 therapy BIPAP [facility] Respiratory 10 bpm [place] rate [facility] pH, arterial 7.374 7.350 - 7.450 units [facility] pCO2, arterial 36.5 35.0 - 45.0 mmHg [facility] pO2, arterial 222.0 (H) 80.0 - 90.0 mmHg [facility] O2 saturation, 100.0 95.0 - 100.0 % [place] arterial [facility] Base excess, -3.9 mEq/L [facility] Bicarbonate 21.3 21.0 - 28.0 mEq/L [facility] O2 content 17.8 VOL% [facility] FiO2, inspired 90.0 % [place] O2% [facility] Carboxyhemoglob 0.5 0.0 - 1.4 % [place] in Comment: ORTHODOXY Reference Ranges: [facility] Carboxyhemoglobin [facility] Non smoker: 0.0 - 2.0% Smoker: 2.1 - 5.0% Heavy smoker: 5.1 - 9% Methemoglobin 0.4 0.0 - 1.0 % [facility] Hemoglobin, 12.4 (L) 14.0 - 18.0 g/dL [place] blood gas [facility] pO2, A-a 381.9 mmHg [facility] Specimen Blood Performing Organization Address City/State/Zipcode Ph one Number [facility] DEPARTMENT OF [address] [place] [address] PATHOLOGY AND GENOMIC MEDICINE [facility] [address] * Troponin, I-Stat (04/03/2019 1:28 AM CDT) Only the most recent of 2 results within the time period is included. Troponin, 0.02 0.00 - 0.08 ng/mL [place] I-Stat Comment: ORTHODOXY 0.09 - 1.49 ng/ml [facility] May indicate increased risk HOSPITAL of acute coronary syndrome. >=1.5 ng/ml Consistent with acute myocardial infarction. The diagnostic value of a single normal or non-diagnostic result is questionable. Serial samples at 2-6 hour intervals are required to rule out acute myocardial injury. Specimen Plasma specimen Performing Organization Address City/State/Zipcode Ph one Number [facility] DEPARTMENT OF [address] [place] [address] PATHOLOGY AND GENOMIC MEDICINE EB ESPINOZA [facility] [address] [place] [address] HOSPITAL * duplex venous lower extremity (04/03/2019 [...] is no evidence of deep venous thrombosis. [facility]-[id number] Procedure Note Interface, Radiology Results Incoming - [...] is no evidence of deep venous thrombosis. [facility]-[id number] Performing Organization Address City/State/[facility] Cent[facility] Ph one Number [facility] [address] [place] [address] * Anti Xa, unfractionated (04/02/2019 8:54 PM CDT) Anti Xa, <0.10 (L)Comment: Therapeutic 0.30 - 0.70 U/mL [place] unfractionated Range: 0.30 - 0.70 U/mL [facility] Specimen Blood Performing Organization Address City/[facility] Ph one Number [facility] [place] [address] PATHOLOGY AND GENOMIC MEDICINE [facility] [address] [place] [address] * Unsuccessful Attempt - PICC (04/02/2019 2:26 [...] vein thrombus Alternatives discussed: No treatmen t [place] protocol: Procedure explained and questions ans wered [...] acid 2.8 (H) 0.5 - 2.2 mmol/L [facility] Specimen Plasma specimen Performing Organization Address City/State/Zipcode Ph one Number [facility] [address] [place] [id number] PATHOLOGY AND GENOMIC MEDICINE [facility] [address] * Us carotid duplex (03/31/2019 8:01 [...] right carotid artery (less than 50%).. . [facility]-[id number] Procedure Note Interface, Radiology Results Incoming - [...] right carotid artery (less than 50%).. . [facility]-[id number] Performing Organization Address City/State/Zipcode Ph one Number [facility] [address] [facility] [place] [address] * MRI Brain Wo Contrast (03/31/2019 4:24 [...] are clear. IMPRESSION: No acute intracranial abnormality. [id number] Procedure Note Interface, Radiology Results Incoming - [...] are clear. IMPRESSION: No acute intracranial abnormality. [id number] Performing Organization Address City/State/Zipcode Ph one Number [facility] [address] [place] [address] * EEG (routine) (03/31/2019 1:32 PM CDT) [...] pleural effusion. Osseous structures are unchan ged. [id number] Dictated and approved by radiology resi dent/fellow: [...] right pleural effusion. Osseous structures are unchanged. [id number] Dictated and approved by care program resident/fellow: Abdirizak Fox M.D. I, Christopher Munoz Jr., M.D., personally reviewed the images and resident's/fellow's findings and agree with the final report. Performing Organization Address City/State/Zipcode Ph one Number [facility] [address] [facility] [place] [address] * Echocardiogram complete w contrast and 3D [...] AoV Vmax 0.92 m/s [facility] BSA Roas 1.91 m2 [facility] BSA [place] 1.90 m2 [facility] IVS/LVPW,2D 1.00 [facility] Left Atrium 3.26 cm [facility] Dimension Anterior LV,d 4.53 cm [facility] LV,s 3.24 cm [facility] PV VMAX 0.76 m/s [facility] BMI 26.00 kg/m2 [facility] MV E A ratio 0.69 [facility] AoV area i VTI 1.65 cm2/m2 HM [facility] BSA [place] MR peak grad 2.16 mmHg HM [facility] [...] Address City/State/Zipcode Ph one Number [facility] [address] [facility] [place] [address], [place] * Echocardiogram complete w contrast and [...] study due to uncooperativ e patient per data analytics chief scientist's comments. LVEF appears to be depressed and not ed to be normal on study performed in 07/2018 Performing Organization Address [facility] [place] Ph one Number [facility] [address] [place] [address], [place] * CT Head Wo Contrast (03/29/2019 [...] No CT evidence of acute intracranial abnormality. [id number] Procedure Note Interface, Radiology Results Incoming - [...] No CT evidence of acute intracranial abnormality. 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: yes Interpretation: Interpretation: abnormal Rate: ECG rate: 65 ECG rate assessment: normal Rhythm: Rhythm: sinus rhythm QRS: QRS axis: Left T waves: T waves: inverted Inverted: III * Ammonia level (03/29/2019 1:12 PM CDT) Ammonia 30 16 - 60 umol/L [facility] Specimen Plasma specimen Performing Organization Address [facility] [place] Ph one Number [facility] [place] [address] [place] [address] [place] [address] PATHOLOGY AND GENOMIC MEDICINE [address] * Acetaminophen level (03/29/2019 1:12 PM CDT) Acetaminophen <15.3 10.0 - 30.0 ug/mL [place] level Comment: ORTHODOXY Therapeutic [place] 10-30 ug/mL [facility] Possible Toxicity 150-200 ug/mL Probable Toxicity >200 ug/mL Specimen Blood Performing Organization Address [facility] [place] Ph one Number [facility] OF [address] [facility] [place] [address] PATHOLOGY AND GENOMIC MEDICINE [address] * Salicylate level (03/29/2019 1:12 PM CDT) Salicylate <0.4 (L) 3.0 - 30.0 mg/dL [place] Comment: ORTHODOXY Therapeutic Range: [facility] 5 - 30 mg/dL HOSPITAL Specimen Blood Performing Organization Address City[facility] Ph one Number [facility] [address] [facility] [place] [address] PATHOLOGY AND GENOMIC MEDICINE [address] [place] [address] HOSPITAL after 03/18/2019 Additional Health Concerns Resolved Time Infection Noted Time 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 [facility] MDR Acinetobacter species (C ) 09/24/2018 1:[address] ESBL (C ) 10/20/2019 2:49 PM CDT Insurance Type Payer Benefit Subscriber ID Effective Phone Address Plan / Dates Group Medicare MEDICARE MEDICARE xxxxxxxxxxx [id number] EB, PART A AND resent [place] Advance Directives For more information, please contact: [phone] Patient Station Worker Explanation Type Date Recorded Advance Directives, 12/31/2015 5:08 PM Living Will and Medical Power of Road Contractor Advance Directives, 02/10/2016 1:18 PM Living Will and Medical Power of Road Contractor Advance Directives, 03/04/2016 8:23 PM Living Will and Medical Power of Road Contractor Advance Directives, 12/01/2017 12:28 AM Living Will and Medical Power of Road Contractor Advance Directives, 06/15/2018 3:53 PM Living Will and Medical Power of Road Contractor Advance Directives, 10/25/2018 1:08 PM Living Will and Medical Power of Road Contractor Advance Directives, 10/27/2018 7:52 PM Living Will and Medical Power of Road Contractor Advance Directives, 08/06/2019 4:30 PM Living Will and Medical Power of Road Contractor Advance Directives, 10/15/2019 10:01 PM Living Will and Medical Power of Road Contractor Advance Directives, 10/22/2019 8:43 PM Living Will and Medical Power of Road Contractor Advance Directives, 12/20/2019 6:46 PM Living Will and Medical Power of Road Contractor Advance Directives, 01/10/2020 9:55 PM Living Will and Medical Power of Road Contractor Advance Directives, 01/10/2020 9:58 PM Living Will and Medical Power of Road Contractor Date Inactivated Comments Code Status Date Activated 10/22/2019 8:14 PM Full Code 10/16/2019 3:20 PM Code Status decision reached by: Patient 03/04/2018 7:02 PM Full Code 03/03/2018 3:52 PM Code Status decision reached by: Patient 12/09/2017 12:11 AM Full Code 12/01/2017 12:51 AM Code Status decision reached by: Patient Code Status decision reached by: Patient
--- OUTSIDE RECORDS SUMMARY | 2020-03-18 14:35 | XMS REPORT | Continuity of Care Document ---
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 Longer Active 12/03/2019 [facility] Coreg Notes: Give with food. ( Same As: Coreg) No Longer Active 12/03/2019 [facility] Alprazolam 1 MG Oral Tablet [Xanax] Notes: With food or milk (Same as: Xanax) No Longe r Active 12/03/2019 [facility] oxybutynin Notes: Same as: Dit ropan) No Longer Active 12/03/2019 [facility] Sodium Bicarbonate Notes: "Dis solve tablet in a glass of water prior to oral administration. STOMACH WARNING: To avoid serious injury, do not take until tablet is completely dissolved. It is very important not to t kayla this product when overly full from food or drink." No Longer Active 12/03/2019 [facility] meropenem Notes: Same as Barak jamil MEDICATION WASTE Product Size: 500 mg Product Wasted: ___ mg No Longer Active 12/03/2019 [facility] Hydromorphone Notes: (Same as: Dilaudid) No Longer Active 12/03/2019 [facility] cyclobenzaprine Notes: (Same A s: Flexeril) No Longer Active 12/03/2019 [facility] NS 1,000 mL 1,000 mL, Rate: 10 0 ml/hr, Infuse over: 10 hr, Route: IV, Dosing Weight 79.545 kg, Total Volume: 1,000, Start date: 12/02/19 23:53:00 CDT, Duration: 1 doses or times, Stop date: 12/03/19 9:52:00 CDT, 2.02, m2, 0 No Longer Active 12/03/2019 [facility] Dilaudid Notes: (Same as: Dila udid) No Longer Active 12/03/2019 [facility] cyclobenzaprine Notes: Same as Flexeril No Longer Active 12/03/2019 [facility] Dextrose 50% Syringe (D50W) 12 .5 gm, 25 mL, Route: IVP, Drug Form: INJ, Dosing Weight 79.545, kg, PRN, PRN Blood Glucose Results, Start date: 12/02/19 23:45:00 CDT, Duration: 30 day, Stop date: 01/01/20 23:44:00 CDT, 0 No Longer Active 12/03/2019 [facility] Glucagon 1 mg, Route: IM, Drug form: PDR/INJ, PRN, Dosing Weight 79.545, kg, PRN Blood Glucose Results, Start date: 12/02/19 23:45:00 CDT, Duration: 30 day, Stop date: 01/01/20 23:44:00 CDT, 0 No Longer Active 12/03/2019 [facility] Ondansetron Notes: (Same as: Kory davis) MEDICATION WASTE Product Size: 4 mg Product Wasted: ___ mg No Longer Active 12/03/2019 [facility] Acetaminophen Notes: Do not ex ceed 4 gm/day. (Same as: Tylenol) No Longer Active 12/03/2019 [facility] meropenem Notes: (Same as: Sandy rem) . MEDICATION WASTE Product Size: 1000 mg Product Wasted: ___ mg No Longer Active 12/03/2019 [facility] Vancomycin 2001 mg: infuse ov er 2.5 hours For adult patients only: Round to nearest 250 mg per Medical Staff approval MEDICATION WASTE Product Size: 1000 mg Product Wasted: ___ mg No Longer Active 12/03/2019 [facility] Ceftriaxone Notes: (Same As: Malathi jara). Use with 100 mL NS and infuse over 30 min MEDICATION WASTE Product Size: 1000 mg Product Wasted: ___ mg Inactive 12/03/2019 [facility] Dilaudid 2 mg, Route: PO, ONCE , Dosing Weight 79.545, kg, Start date: 12/02/19 22:08:00 CDT, Stop date: 12/02/19 22:08:00 CDT Inactive 12/03/2019 [facility] NS (Bolus) IV 500 mL, 500 ml/h r, Infuse Over: 1 hr, Route: IV, 500, Drug form: INJ, ONCE, Priority: STAT, Dosing Weight 84.091 kg, Start date: 11/17/19 18:07:00 CDT, Stop date: 11/17/19 18:07:00 CDT, 0 Inactive 11/17/2019 [facility] cyclobenzaprine 10 mg oral tablet 10 mg = 1 tab, PO, TID, PRN Spasm, 0 Refill(s) Active 11/17/2019 [facility] citalopram 10 mg oral tablet 1 0 mg = 1 tab, PO, Bedtime, 0 Refill(s) Active 11/17/2019 [facility] oxybutynin 5 mg oral tablet 5 mg = 1 tab, PO, TID, 0 Refill(s) Active 11/17/2019 [facility] hydromorphone 2 mg oral tablet 2 mg = 1 tab, PO, Q4H, PRN Pain Score 4-10, 0 Refill(s) Active 11/17/2019 [facility] enoxaparin 40 mg/0.4 mL subcutaneous solution 40 mg = 0.4 mL, SUB-Q, [id number], 0 Refill(s) Active 11/17/2019 [facility] Rocephin 1 g injection 2 gm, I V, Daily, X 56 day, # 56 ea, 0 Refill(s), other Active 11/17/2019 [facility] Cathflo Activase 2 mg injection Notes: "Syringe for catheter clearance or interventional radiology use. Reconstitute each vial of Cathflo Activase with 2.2 ml Sterile Water resulting in a 1 mg/ml solution. (Same as: Activase) MEDICATION WASTE Product Size: 2 mg Product Wasted: ___ mg Inactive 11/16/2019 [facility] Rocephin + sterile water 20 mL Notes: (Same As: Rocephin). No Longer Active 11/16/2019 [facility] Ditropan Notes: Same as: Ditro moffett) No Longer Active 11/16/2019 [facility] vancomycin + Sodium Chloride 0.9% IV 250 mL 2000 mg: infuse over 2.5 hours For adult patients only: Round to nearest 250 mg per Medical Staff approval MEDICATION WASTE Product Size: 1000 mg Product Wasted: ___ mg No Longer Active 11/16/2019 [facility] Vancomycin 2001 mg: infuse ov er 2.5 hours For adult patients only: Round to nearest 250 mg per Medical Staff approval MEDICATION WASTE Product Size: 1000 mg Product Wasted: ___ mg Inactive 11/13/2019 [facility] janeo korina (random) shani quintero (random), reminder, Drug form: MISC, Route: MISC, ONCE, 11/13/19 17:00:00 CDT, Stop date: 11/13/19 17:00:00 CDT, 0 No Longer Active 11/13/2019 [facility] Celexa 10 mg, 1 tab, Route: PO , Drug form: TAB, Bedtime, Dosing Weight 84.091, kg, Start date: 11/11/19 21:00:00 CDT, Duration: 30 day, Stop date: 12/10/19 21:00:00 CDT, 0 No Longer Active 11/12/2019 [facility] Vancomycin 2000 mg: infuse ov er 2.5 hours For adult patients only: Round to nearest 250 mg per Medical Staff approval MEDICATION WASTE Product Size: 1000 mg Product Wasted: ___ mg Inactive 11/11/2019 [facility] please draw and send vanc level to lab please draw and send vanc level to lab, reminder, Drug form: MISC, Route: MISC, ONCE, Priority: NOW, 11/11/19 16:05:00 CDT, Stop date: 11/11/19 16:05:00 CDT, 0 Inactive 11/11/2019 [facility] Dilaudid Notes: (Same as: Dila udid) No Longer Active 11/11/2019 [facility] Ferrlecit Notes: (sodium amanda c gluconate complex (elemental iron) 62.5 mg/5 ml INJ) "Limited stability. Use immediately after admixture" (Same as: Ferrlecit) MEDICATION WASTE Product Size: 62.5 mg Product Wasted: ___ mg No Longer Active 11/10/2019 [facility] rocuronium (ANES) Route: IV, D rug form: INJ, ONCE, Stop date: 11/10/19 15:50:00 CDT Inactive 11/10/2019 [facility] ondansetron (ANES) Route: IV, Drug form: INJ, ONCE, Stop date: 11/10/19 15:50:00 CDT Inactive 11/10/2019 [facility] dexamethasone (ANES) Route: IV , Drug form: INJ, ONCE, Stop date: 11/10/19 15:50:00 CDT Inactive 11/10/2019 [facility] metoclopramide (ANES) Route: I V, Drug form: INJ, ONCE, Stop date: 11/10/19 15:50:00 CDT Inactive 11/10/2019 [facility] phenylephrine (ANES) Route: IV , Drug form: INJ, ONCE, Stop date: 11/10/19 15:50:00 CDT Inactive 11/10/2019 [facility] sugammadex (ANES) Route: IV, D rug form: SOLN, ONCE, Stop date: 11/10/19 15:50:00 CDT Inactive 11/10/2019 [facility] lidocaine (ANES) Route: IV, Dr ug form: INJ, ONCE, Stop date: 11/10/19 15:49:00 CDT Inactive 11/10/2019 [facility] fentaNYL (ANES) Route: IV, Arden g form: INJ, ONCE, Stop date: 11/10/19 15:48:00 CDT Inactive 11/10/2019 [facility] propofol (ANES) Route: IV, Arden g form: INJ, ONCE, Stop date: 11/10/19 15:48:00 CDT Inactive 11/10/2019 [facility] midazolam (ANES) Route: IV, Dr ug form: SOLN, ONCE, Stop date: 11/10/19 15:37:00 CDT Inactive 11/10/2019 [facility] Sodium Chloride 0.9% IV (ANES) 1000 mL Route: IV, Total Volume: 1,000, Start date: 11/10/19 15:07:00 CDT, Stop date: 11/10/19 16:07:00 CDT Inactive 11/10/2019 [facility] Flexeril Notes: (Same As: Flex eril) No Longer Active 11/10/2019 [facility] NS 1,000 mL 1,000 mL, Rate: 10 0 ml/hr, Infuse over: 10 hr, Route: IV, Dosing Weight 84.091 kg, Total Volume: 1,000, Start date: 11/09/19 14:48:00 CDT, Duration: 30 day, Stop date: 12/09/19 14:47:00 CDT, 2.08, m2, 0 No Longer Active 11/09/2019 [facility] Vancomycin Pharmacy Dosing Protocol - [facility]Y Vancomycin Pharmacy Dosing Protocol - AMY, Reminder, Drug form: MISC, Route: ROMULO LEÓN, 11/09/19 14:00:00 CDT, Stop date: 12/15/19 23:59:00 CDT, 0 No Longer Active 11/09/2019 [facility] vancomycin + Sodium Chloride 0.9% IV 250 mL 2001 mg: infuse over 2.5 hours For adult patients only: Round to nearest 250 mg per Medical Staff approval MEDICATION WASTE Product Size: 1000 mg Product Wasted: ___ mg Inactive 11/09/2019 [facility] Vancomycin Pharmacy Dosing Protocol - [facility] Vancomycin Pharmacy Dosing Protocol - AMY, Reminder, Drug form: MISC, Route: ROMULO LEÓN, 11/09/19 12:00:00 CDT, Stop date: 12/15/19 23:59:00 CDT, 0 Inactive 11/09/2019 [facility] Please hold noon vanc on 11/08 until trough is collected . Please hold noon vanc on 11/08 until trough is collected., Reminder, Drug form: MISC, Route: MISC, ONCE, 11/09/19 11:08:00 CDT, Stop date: 11/09/19 11:08:00 CDT, 0 Inactive 11/09/2019 [facility] NS 1,000 mL 1,000 mL, Rate: 75 ml/hr, Infuse over: 13.3 hr, Route: IV, Dosing Weight 84.091 kg, Total Volume: 1,000, Start date: 11/08/19 19:54:00 CDT, Duration: 30 day, Stop date: 12/08/19 19:53:00 CDT, 2.08, m2, 0 No Longer Active 11/09/2019 [facility] hydromorphone 2 mg oral tablet 2 mg = 1 tab, PO, Q6H, PRN Pain Score 4-10, # 8 tab, 0 Refill(s), [id number] No Longer Active 11/08/2019 [facility] Dilaudid Notes: (Same as: Dila udid) No Longer Active 11/08/2019 [facility] vanc trough 2300 on 11/06 vanc t rough 2300 on 11/06, don't give dose before lab is drawn, Drug form: MISC, Route: MISC, ONCE, 11/07/19 22:30:00 CDT, Stop date: 11/07/19 22:30:00 CDT, 0 Inactive 11/08/2019 [facility] vancomycin + Sodium Chloride 0.9% IV 250 mL 2001 mg: infuse over 2.5 hours For adult patients only: Round to nearest 250 mg per Medical Staff approval MEDICATION WASTE Product Size: 1000 mg Product Wasted: ___ mg No Longer Active 11/07/2019 [facility] propofol (ANES) Route: IV, Arden g form: INJ, ONCE, Stop date: 11/05/19 16:18:00 CDT Inactive 11/05/2019 [facility] glycopyrrolate (ANES) Route: I V, Drug form: INJ, ONCE, Stop date: 11/05/19 16:18:00 CDT Inactive 11/05/2019 [facility] neostigmine (ANES) Route: IV, Drug form: INJ, ONCE, Stop date: 11/05/19 16:18:00 CDT Inactive 11/05/2019 [facility] sugammadex (ANES) Route: IV, D rug form: SOLN, ONCE, Stop date: 11/05/19 16:18:00 CDT Inactive 11/05/2019 [facility] Zofran Notes: (Same as: Fantamayi ) MEDICATION WASTE Product Size: 4 mg Product Wasted: ___ mg Inactive 11/05/2019 [facility] norepinephrine (ANES) Route: I V, Drug form: INJ, ONCE, Stop date: 11/05/19 15:55:00 CDT Inactive 11/05/2019 [facility] ondansetron (ANES) Route: IV, Drug form: INJ, ONCE, Stop date: 11/05/19 15:55:00 CDT Inactive 11/05/2019 [facility] fentaNYL (ANES) Route: IV, Arden g form: INJ, ONCE, Stop date: 11/05/19 15:50:00 CDT Inactive 11/05/2019 [facility] phenylephrine (ANES) Route: IV , Drug form: INJ, ONCE, Stop date: 11/05/19 15:50:00 CDT Inactive 11/05/2019 [facility] midazolam (ANES) Route: IV, Dr ug form: SOLN, ONCE, Stop date: 11/05/19 15:40:00 CDT Inactive 11/05/2019 [facility] lidocaine (ANES) Route: IV, Dr ug form: INJ, ONCE, Stop date: 11/05/19 15:40:00 CDT Inactive 11/05/2019 [facility] propofol (ANES) Route: IV, Arden g form: INJ, ONCE, Stop date: 11/05/19 15:40:00 CDT Inactive 11/05/2019 [facility] rocuronium (ANES) Route: IV, D rug form: INJ, ONCE, Stop date: 11/05/19 15:40:00 CDT Inactive 11/05/2019 [facility] Lactated Ringers Injection IV (ANES) 1000 mL Route: IV, Total Volume: 1,000, Start date: 11/05/19 14:54:00 CDT, Stop date: 11/05/19 15:54:00 CDT Inactive 11/05/2019 [facility] Calcium Chloride 0.0014 MEQ/ML / Potassi um Chloride 0.004 MEQ/ML / Sodium Chloride 0.103 MEQ/ML / Sodium Lactate 0.028 MEQ/ML Injectable Solution 1,000 mL, Rate: 75 ml/hr, Infuse over: 1 3.3 hr, Route: IV, Dosing Weight 84.091 kg, Total Volume: 1,000, Start date: 11/05/19 13:46:00 CDT, Duration: 1 day, Stop date: 11/06/19 13:45:00 CDT, 2.08, m2, 0 Inactive 11/05/2019 [facility] Protonix Notes: Tablet should not be chewed or crushed. (Same as: Protonix) No Longer Active 11/05/2019 [facility] Omnipaque 300 injectable solution Notes: (Same as:Omnipaque 300). WASTE: F/P - Black; E - Municipal Trash Bin No Longer Active 11/05/2019 [facility] vancomycin + Sodium Chloride 0.9% IV 250 mL 2001 mg: infuse over 2.5 hours For adult patients only: Round to nearest 250 mg per Medical Staff approval MEDICATION WASTE Product Size: 1000 mg Product Wasted: ___ mg Inactive 11/05/2019 [facility] vancomycin + Sodium Chloride 0.9% IV 250 mL 2001 mg: infuse over 2.5 hours For adult patients only: Round to nearest 250 mg per Medical Staff approval MEDICATION WASTE Product Size: 1000 mg Product Wasted: ___ mg Inactive 11/05/2019 [facility] Lyrica Notes: Same as Lyrica No Longer Active 11/05/2019 [facility] Vancomycin 1,000 mg, Route: IV PB, Drug form: INJ, [id number], Dosing Weight 84.091, kg, Start date: 11/04/19 21:00:00 CDT, Duration: 14 day, Stop date: 11/18/19 9:00:00 CDT, ABX Indication: Skin/Soft Tissue Infect ion Inactive 11/05/2019 [facility] cefepime Notes: (Same As: Franco guaman) MEDICATION WASTE Product Size: 1000 mg Product Wasted: ___ mg No Longer Active 11/05/2019 [facility] Lovenox Notes: (Same as: Loven ox) No Longer Active 11/05/2019 [facility] carvedilol Notes: Give with fo od. (Same As: Coreg) No Longer Active 11/04/2019 [facility] Alprazolam 1 MG Oral Tablet [Xanax] Notes: With food or milk (Same as: Xanax) No Longe r Active 11/04/2019 [facility] Oxycodone Hydrochloride 5 MG Oral Tablet Notes: (Same as: Roxicodone) No Longer Active 11/04/2019 [facility] oxybutynin Notes: Same as: Dit ropan) No Longer Active 11/04/2019 [facility] remove patch Notes: Remove pat ch 12 hours after application each day. No Longe r Active 11/04/2019 [facility] carvedilol 12.5 mg, PO, BID, 0 Refill(s) Active 11/04/2019 [facility] oxybutynin 5 mg oral tablet 5 mg = 1 tab, PO, TID, PRN Other-See Comments, # 30 tab, 0 Refill(s) Inactive 11/04/2019 [facility] Alprazolam 1 MG Oral Tablet [Xanax] 1 mg = 1 tab, PO, BID, 0 Refill(s) Active 11/04/2019 [facility] pregabalin 100 MG Oral Capsule [Lyrica] 100 mg = 1 cap, PO, Bedtime, 0 Refill(s) Activ e 11/04/2019 [facility] Nurse please update Height, Weight, Gwyn rgy info in [facility] Nurse please update Height, Weight, Gwyn rgy info in [facility], reminder, Drug form: MISC, Route: MISC, Q1H, 11/04/19 14:00:00 CDT, Duration: 4 hr, Stop date: 11/04/19 17:00:00 CDT, 0 Inactive 11/04/2019 [facility] Dextrose 50% Syringe (D50W) 12 .5 gm, 25 mL, Route: IVP, Drug Form: INJ, Dosing Weight 79.545, kg, PRN, PRN Blood Glucose Results, Start date: 11/04/19 12:13:00 CDT, Duration: 30 day, Stop date: 12/04/19 12:12:00 CDT, 0 No Longer Active 11/04/2019 [facility] Glucagon 1 mg, Route: IM, Drug form: PDR/INJ, PRN, Dosing Weight 79.545, kg, PRN Blood Glucose Results, Start date: 11/04/19 12:13:00 CDT, Duration: 30 day, Stop date: 12/04/19 12:12:00 CDT, 0 No Longer Active 11/04/2019 [facility] Docusate Notes: (Same as: Cola ce) (Do Not Crush) No Longer Active 11/04/2019 [facility] POLYETHYLENE GLYCOL 3350 Notes : Dissolve in 8 oz of water or juice. (Same as: Miralax) No Longer Active 11/04/2019 [facility] Bisacodyl Notes: (Same As: Dul colax, Bisco-Lax) No Longer Active 11/04/2019 [facility] Ondansetron Notes: (Same as: Kory davis) MEDICATION WASTE Product Size: 4 mg Product Wasted: ___ mg No Longer Active 11/04/2019 [facility] Diphenhydramine 25 mg, 1 tab, Route: PO, Drug form: TAB, Q6H, Dosing Weight 79.545, kg, PRN as needed for allergy symptoms, Start date: 11/04/19 12:13:00 CDT, Duration: 30 day, Stop date: 12/04/19 12:12:00 CDT, 0 No Longer Active 11/04/2019 [facility] Melatonin Notes: (Same as: Leigh Ann atonin) No Longer Active 11/04/2019 [facility] Trazodone Notes: (Same As: Edson yrel) No Longer Active 11/04/2019 [facility] Acetaminophen Notes: Do not ex ceed 4 gm/day. (Same as: Tylenol) No Longer Active 11/04/2019 [facility] Seroquel Notes: (Same as: SERO quel) No Longer Active 11/04/2019 [facility] Hydralazine Notes: (Same as: A presoline) Push over 5 minutes No Longer Active 11/04/2019 [facility] Nicotine Notes: (Same as: Roney montague) "Remove old patch before application of new patch" WASTE: F/P - P Waste Black; E - P Waste Black No Longer Active 11/04/2019 [facility] Tessalon Perles 100 mg, 1 cap, Route: PO, Drug form: CAP, TID, Dosing Weight 79.545, kg, PRN Cough, Start date: 11/04/19 12:13:00 CDT, Duration: 30 day, Stop date: 12/04/19 12:12:00 CDT, 0 No Longer Active 11/04/2019 [facility] Mucinex 600 mg, 1 tab, Route: PO, Drug form: ERTAB, Q12H, Dosing Weight 79.545, kg, PRN Congestion, Start date: 11/04/19 12:13:00 CDT, Duration: 30 day, Stop date: 12/04/19 12:12:00 CDT, 0 No Longer Active 11/04/2019 [facility] Simethicone Notes: (Same as: Omero ylicon) No Longer Active 11/04/2019 [facility] Maalox Advanced Regular Strength SUSP Notes: (aluminum hydroxide-magnesium hyd-simethicone [id number]/5ml 30 ml ud SOLITARIO) No Longer Active 11/04/2019 [facility] Albuterol 0.833 MG/ML / Ipratropium Brom laila 0.167 MG/ML Inhalant Solution [DuoNeb] Notes: (Same as: Duoneb) No Longer Active 11/04/2019 [facility] phenol Notes: Chloraseptic Spr ay (Same as: Chloraseptic, Sore Throat Disputanta) WASTE: F/P - Black; E - Municipal Trash Bin No Longer Active 11/04/2019 [facility] Artificial Tears 1 drp, Route: Each Affected Eye, QID, Drug form: SOLN, PRN Dry Eyes, Start date: 11/04/19 12:13:00 CDT, Duration: 30 day, Stop date: 12/04/19 12:12:00 CDT, 0 No Longer Active 11/04/2019 [facility] Lidocaine 0.05 MG/MG Transdermal Patch 1 patch, Route: TOP, Daily, Drug form: FILM, PRN Pain Score 1-3, Start date: 11/04/19 12:13:00 CDT, Duration: 30 day, Stop date: 12/04/19 12:12:00 CDT, 0 No Longer Active 11/04/2019 [facility] Lactulose 667 MG/ML Oral Solution Notes: (Same as:Chronulac) No Longer Active 11/04/2019 [facility] Benzocaine 15 MG / Menthol 3.6 MG Lozeng e [Cepacol Sore Throat Pain Relief 15/3.6] Notes: Same as: Cepacol No Longer Active 11/04/2019 [facility] Acetaminophen 325 MG / Hydrocodone Micheal trate 5 MG Oral Tablet [[place] 5/325] Notes: (Same as: [place] 325/5) Do not ex ceed 4gm/day of acetaminophen. Inactive 07/08/2018 [facility] Melatonin Notes: (Same as: Leigh Ann atonin) Inactive 07/08/2018 [facility] BD Normal Saline Flush Notes: Same as: BD Posiflush Sterile No Longer Active 07/07/2018 [facility] Hydralazine Hydrochloride 25 MG Oral Tablet Notes: (Same as: Apresoline) May interfere w/enteral feedings Take With Food. No Longer Active 07/07/2018 [facility] Docusate Sodium 100 MG Oral Capsule [Colace] Notes: (Same as: Colace) (Do Not Crush) No Longer Active 07/07/2018 [facility] ferrous sulfate Notes: Give wi th food. iron elemental [id number] as ferrous sulfate Dose=___mg elemental iron No Longer Active 07/07/2018 [facility] Docusate Sodium 100 MG Oral Capsule [Colace] 100 mg = 1 cap, PO, BID, # 28 cap, 0 Refill(s), Pharmacy: [facility] [id number] Active 07/07/2018 [facility] Amoxicillin 875 MG / Clavulanate 125 MG Oral Tablet [Augmentin 875-mg] 1 tab, PO, Q12H, X 7 day, # 14 tab, 0 Re fill(s), Pharmacy: [facility] [id number] No Longer Active 07/07/2018 [facility] ferrous sulfate 325 MG Oral Tablet 325 mg = 1 tab, PO, TID, # 90 tab, 5 Refill(s), Pharmacy: [facility] [id number] Active 07/07/2018 [facility] Lisinopril Notes: (Same as: Pr inivil, Zestril) No Longer Active 07/07/2018 [facility] Amoxicillin 875 MG / Clavulanate 125 MG Oral Tablet [Augmentin 875-mg] Notes: With food. (Same as: Augmentin 87 5) No Longer Active 07/07/2018 [facility] Lopressor Notes: (Same as: Lop ressor) No Longer Active 07/07/2018 [facility] Amitriptyline Notes: (Same as: Elavil) No Longer Active 07/07/2018 [facility] Labetalol Notes: (Same as: Richard jarrettyne, Trandate) Push over 2 minutes Give bolus over 2-3 minutes. No Longer Active 07/06/2018 [facility] Unasyn Notes: Dosing based on Ampicillin component (Same as: Unasyn) Inactive 07/06/2018 [facility] Maxipime + Sodium Chloride 0.9% IV 100 mL Notes: (Same As: Maxipime) MEDICATION WASTE Product Size: 1000 mg Product Wasted: ___ mg No Longer Active 07/05/2018 [facility] Acetaminophen 325 MG / Hydrocodone Micheal trate 5 MG Oral Tablet [[place] 5/325] Notes: (Same as: [place] 325/5) Do not ex ceed 4gm/day of acetaminophen. 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 (Same as: Tylenol) No Longer Active 07/04/2018 [facility] Albuterol 0.833 MG/ML / Ipratropium Brom laila 0.167 MG/ML Inhalant Solution Notes: (Same as: Duoneb) No Longer Active 07/04/2018 [facility] Sodium Chloride 0.9% IV 1,000 mL 1,000 mL, Rate: 125 ml/hr, Infuse over: 8 hr, Route: IV, Dosing Weight 79.545 kg, Total Volume: 1,000, Start date: 07/04/18 14:46:00 [employer] PRESIDENT/PRACTICE OWNER, Duration: 30 day, Stop date: 08/03/18 14:45:00 [employer] PRESIDENT/PRACTICE OWNER, 1.97, m2 No Longer Active 07/04/2018 [facility] Saline Flush 0.9% Notes: (Same as: BD Posiflush) No Longer Active 07/04/2018 [facility] cefepime 2 gm, Route: IVP, ONC E, Dosing Weight 79.545, kg, Priority: STAT, Start date: 07/04/18 14:43:00 [employer] PRESIDENT/PRACTICE OWNER, Stop date: 07/04/18 14:43:00 [employer] PRESIDENT/PRACTICE OWNER, ABX Indication: Pneumonia Inactive 07/04/2018 [facility] Levofloxacin 750 mg, Route: IV PB, ONCE, Dosing Weight 79.545, kg, Priority: STAT, Start date: 07/04/18 14:43:00 [employer] PRESIDENT/PRACTICE OWNER, Stop date: 07/04/18 14:43:00 [employer] PRESIDENT/PRACTICE OWNER, ABX Indication: Pneumonia Inactive 07/04/2018 [facility] Vancomycin 2001 mg: infuse ov er 2.5 hours For adult patients only: Round to nearest 250 mg per Medical Staff approval MEDICATION WASTE Product Size: 1000 mg Product Wasted: ___ mg Inactive 07/04/2018 [facility] cefepime Notes: (Same as: Franco guaman) MEDICATION WASTE Product Size: 2000 mg Product Wasted: ___ mg Inactive 07/04/2018 [facility] Isolyte S PH-7.4 (Bolus) IV 1, 000 mL, Route: IV, ONCE, Dosing Weight 79.545 kg, Start date: 07/04/18 11:50:00 [employer] PRESIDENT/PRACTICE OWNER, Stop date: 07/04/18 11:50:00 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 07/04/2018 [facility] Sodium Chloride 0.9% (Bolus) IV 1,000 mL, 1000 ml/hr, Infuse Over: 1 hr, Route: IV, 1,000, Drug form: INJ, ONCE, Priority: STAT, Dosing Weight 79.545 kg, Start date: 07/04/18 10:21:00 [employer] PRESIDENT/PRACTICE OWNER, Stop date: 07/04/18 10:21:00 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 07/04/2018 [facility] Acetaminophen 300 MG / Codeine Phosphate 30 MG Oral Tablet [Tylenol with Codeine #3] 1 tab, PO, TID, PRN Pain, X 7 day, # 21 tab, 0 Refill(s) No Longer Active 06/30/2018 [facility] lisinopril 5 mg oral tablet 5 mg = 1 tab, PO, Daily, # 30 tab, 0 Refill(s), Pharmacy: [facility] [id number] Active 06/30/2018 [facility] metoprolol tartrate 25 mg oral tablet 25 mg = 1 tab, PO, BID, # 60 tab, 0 Refill(s), Pharmacy: [facility] [id number] Active 06/30/2018 [facility] Lisinopril Notes: (Same as: Pr inivil, Zestril) No Longer Active 06/27/2018 [facility] Vasotec Notes: (Same as: Vasot ec-IV) No Longer Active 06/26/2018 [facility] vancomycin Notes: TIME CRITICA L MEDICATION Same as: Vancocin No Longer Active 06/25/2018 [facility] multivitamin Notes: (Same as:T nickolas) WASTE: F/P - Black; E - Municipal Trash Bin Take with food. No Longer Active 06/25/2018 [facility] Dakins Half Strength Solution 0.25% topical Notes: Note: half-strength = 0.25% sodium hypochlorite. No Longer Active 06/25/2018 [facility] Dilaudid Notes: (Same as: Dila udid) Inactive 06/25/2018 [facility] metoprolol tartrate Notes: (Sa me as: Lopressor) No Longer Active 06/24/2018 [facility] Sodium Chloride 0.9% IV 1,000 mL 1,000 mL, Rate: 50 ml/hr, Infuse over: 20 hr, Route: IV, Dosing Weight 80.003 kg, Total Volume: 1,000, Start date: 06/24/18 16:03:00 [employer] PRESIDENT/PRACTICE OWNER, Duration: 30 day, Stop date: 07/24/18 16:02:00 [employer] PRESIDENT/PRACTICE OWNER, 2.02, m2 No Longer Active 06/24/2018 [facility] pantoprazole Notes: Tablet milse uld not be chewed or crushed. (Same as: Protonix) N o Longer Active 06/24/2018 [facility] ferrous sulfate Notes: Give wi th food. iron elemental [id number] as ferrous sulfate Dose=___mg elemental iron No Longer Active 06/24/2018 [facility] Amitriptyline Notes: (Same as: Elavil) No Longer Active 06/24/2018 [facility] Baclofen Notes: (Same As: Fitz esal) No Longer Active 06/23/2018 [facility] Levi packet Notes: (Same as: Levi Jessie) No Longer Active 06/23/2018 [facility] Dilaudid Notes: Same as Dilaud id No Longer Active 06/21/2018 [facility] Ondansetron Notes: (Same as: Kory davis) MEDICATION WASTE Product Size: 4 mg Product Wasted: ___ mg No Longer Active 06/21/2018 [facility] Lovenox Notes: (Same as: Loven ox) No Longer Active 06/21/2018 [facility] vancomycin 2001 mg: infuse ov er 2.5 hours No Longer Active 06/21/2018 [facility] cefepime Notes: (Same As: Franco guaman) MEDICATION WASTE Product Size: 1000 mg Product Wasted: ___ mg No Longer Active 06/21/2018 [facility] Vancomycin 1 ea, Route: IV, CONCRETE BLOCK MOLDER, Dosing Weight 80.003, kg, Start date: 06/20/18 22:00:00 [employer] PRESIDENT/PRACTICE OWNER, Duration: 5 day, Stop date: 06/25/18 21:59:00 [employer] PRESIDENT/PRACTICE OWNER, ABX Indication: Skin/Soft Tissue Infection Inactive 06/21/2018 [facility] Dilaudid Notes: Same as Dilaud id No Longer Active 06/21/2018 [facility] Acetaminophen Notes: Do not ex ceed 4 gm/day. (Same as: Tylenol) No Longer Active 06/21/2018 [facility] Glucagon 1 mg, Route: IM, Drug form: PDR/INJ, PRN, Dosing Weight 80.003, kg, PRN Blood Glucose Results, Start date: 06/20/18 21:14:00 [employer] PRESIDENT/PRACTICE OWNER, Duration: 30 day, Stop date: 07/20/18 21:13:00 [employer]ST PRESIDENT/PRACTICE OWNER No Longer Active 06/21/2018 [facility] Dextrose 50% Syringe 25 gm, 50 mL, Route: IVP, Drug Form: INJ, Dosing Weight 80.003, kg, PRN, PRN Blood Glucose Results, Start date: 06/20/18 21:14:00 [employer]RIST PRESIDENT/PRACTICE OWNER, Duration: 30 day, Stop date: 07/20/18 21:13:00 OPTOMETRIST PRESIDENT/PRACTICE OWNER No Longer Active 06/21/2018 [facility] Ondansetron Notes: (Same as: Kory davis) MEDICATION WASTE Product Size: 4 mg Product Wasted: ___ mg No Longer Active 06/21/2018 [facility] vancomycin 2001 mg: infuse ov er 2.5 hours Inactive 06/20/2018 [facility] Acetaminophen 325 MG / Hydrocodone Micheal trate 5 MG Oral Tablet [[place] 5/325] Notes: (Same as: [place] 325/5) Do not ex ceed 4gm/day of acetaminophen. Inactive 06/20/2018 [facility] Vancomycin Notes: TIME CRITICA L MEDICATION (Same As: Vancocin) For adult patients only: Round to nearest 250 mg per Medical Staff approval No Longer Active 06/20/2018 [facility] cefepime Notes: (Same as: Franco guaman) MEDICATION WASTE Product Size: 2000 mg Product Wasted: ___ mg Inactive 06/20/2018 [facility] Vancomycin 2001 mg: infuse ov er 2.5 hours For adult patients only: Round to nearest 250 mg per Medical Staff approval MEDICATION WASTE Product Size: 1000 mg Product Wasted: ___ mg Inactive 06/20/2018 [facility] Saline Flush 0.9% Notes: (Same as: BD Posiflush) No Longer Active 06/20/2018 [facility] Calcium Chloride 0.0014 MEQ/ML / Potassi um Chloride 0.004 MEQ/ML / Sodium Chloride 0.103 MEQ/ML / Sodium Lactate 0.028 MEQ/ML Injectable Solution 2,386.35 mL, 1988.63 ml/hr, Infuse Over: 1.2 hr, Route: IV, 2,386.35, Drug form: INJ, ONCE, Priority: STAT, Dosing Weight 79.545 kg, Start date: 06/20/18 14:58:00 [employer] PRESIDENT/PRACTICE OWNER, Stop date: 06/20/18 14:58:00 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 06/20/2018 [facility] baclofen 10 mg oral tablet 10 mg = 1 tab, PO, TID, # 42 tab, 0 Refill(s) Active 06/01/2018 [facility] linezolid 600 mg oral tablet 6 00 mg = 1 tab, PO, [id number], X 6 day, # 12 tab, 0 Refill(s) No Longer Active 06/01/2018 [facility] nter fluconazole 200 mg oral tablet 400 mg = 2 tab, PO, Daily, X 7 day, # 14 tab, 0 Refill(s) No Longer Active 06/01/2018 [facility] nter Fluconazole Notes: (Same as: D iflucan) Inactive 06/01/2018 [facility] Naloxone Notes: Same as Narcan No Longer Active 06/01/2018 [facility] remove patch Notes: Remove old patch before application of new patch. No Longer Active 05/31/2018 [facility] Dextrose 5% with 0.45% NaCl IV 1,000 mL 1,000 mL, Rate: 125 ml/hr, Infuse over: 8 hr, Route: IV, Dosing Weight 85.142 kg, Total Volume: 1,000, Start date: 05/30/18 12:11:00 CDT, Duration: 8 hr, Stop date: 05/30/18 20:10:00 CDT, 2.09, m2 Inactiv e 05/30/2018 [facility] heparin Notes: porcine heparin No Longer Active 05/29/2018 [facility] heparin 5,000 unit, Route: SUB -Q, Q12H, Dosing Weight 85.142, kg, Start date: 05/28/18 16:47:00 CDT, Duration: 30 day, Stop date: 06/27/18 9:00:00 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 05/28/2018 [facility] 72 HR Fentanyl 0.1 MG/HR Transdermal Patch Notes: (Same as: Duragesic) Check for product integrity. Apply to intact skin "Remove old patch before application of new patch" No Longer Active 05/28/2018 [facility] nter Protonix Notes: Tablet should not be chewed or crushed. (Same as: Protonix) No Longer Active 05/27/2018 [facility] nter avibactam 0.645105 MG/ML / Ceftazidime 0 .955506 MG/ML Injectable Solution Notes: (Same as: Avycaz) Non-formulary No Longer Active 05/27/2018 [facility] tobramycin + Sodium Chloride 0.9% IV 100 mL Notes: TIME CRITICAL MEDICATION (Same As: Nebcin) For adult patients only: Round to nearest 10 mg per Medical Staff approval No Longer Active 05/26/2018 [facility] nter Unasyn Notes: Dosing based on Ampicillin component (Same as: Unasyn) No Longer Active 05/26/2018 [facility] nter Tobramycin 595.994 mg, Route: IV, Q24H, Dosing Weight 85.142, kg, Start date: 05/25/18 16:37:00 CDT, Duration: 30 day, Stop date: 06/23/18 16:37:00 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 05/25/2018 [facility] Unasyn Notes: Dosing based on Ampicillin component (Same as: Unasyn) Inactive 05/25/2018 [facility] Magnesium Oxide Notes: (Same a s: Mag-Ox 400) Magnesium oxide [id number] elemental magnesium Dose=____mg magnesium oxide (___mg elemental magnesium) Inactive 05/25/2018 [facility] ferrous sulfate Notes: Give wi th food. "Do Not Crush" No Longer Active 05/25/2018 [facility] micafungin Notes: Same as Myca mine Protect from light MEDICATION WASTE Product Size: 100 mg Product Wasted: ___ mg No Longer Active 05/24/2018 [facility] Fluconazole Notes: (Same as: D iflucan) Inactive 05/24/2018 [facility] Sodium Chloride 0.9% (titrate) 250 mL 250 mL, Rate: To prime line and flush remaining blood products., Dosing Weight 85.142, kg, Route: IV, Total Volume: 250, Priority: Routine, Start Date: 05/23/18 9:19:00 CDT, Duration: 1 day, Stop date: 05/24/18 9:18:00 CDT, Replace Every: 24 hr No Longer Active 05/23/2018 [facility] linezolid 600 mg, Route: IV, Q 12H, Dosing Weight 85.142, kg, Start date: 05/22/18 21:00:00 CDT, Duration: 30 day, Stop date: 06/21/18 9:00:00 [employer]ST PRESIDENT/PRACTICE OWNER, ABX Indication: Bacteremia Inactive 05/23/2018 [facility] nter vancomycin + Sodium Chloride 0.9% IV 250 mL 2001 mg: infuse over 2.5 hours For adult patients only: Round to nearest 250 mg per Medical Staff approval MEDICATION WASTE Product Size: 1000 mg Product Wasted: ___ mg Inactive 05/23/2018 [facility] Seroquel Notes: (Same as: SERO quel) No Longer Active 05/23/2018 [facility] Levi packet 1 pkt, Route: T F EED, Drug Form: PWDR, Dosing Weight 85.142, kg, BID-Before Meals, Start date: 05/22/18 16:30:00 CDT, Duration: 14 day, Stop date: 06/05/18 7:30:00 CDT Inactive 05/22/2018 [facility] nter Ondansetron Notes: (Same as: Kory davis) MEDICATION WASTE Product Size: 4 mg Product Wasted: ___ mg No Longer Active 05/22/2018 [facility] Baclofen Notes: (Same As: Fitz esal) No Longer Active 05/22/2018 [facility] 72 HR Fentanyl 0.05 MG/HR Transdermal Patch Notes: (Same as: Duragesic) Check for product integrity. Apply to intact skin "Remove old patch before application of new patch" No Longer Active 05/22/2018 [facility] nter Zyvox Notes: . (Same as: Zy vox) No Longer Active 05/22/2018 [facility] fentaNYL 100 mcg/hr transdermal film, extended release 1 patch, TOP, Q72H, # 10 patch, 0 Refill(s) No Longer Active 05/22/2018 [facility] nter Alprazolam 2 MG Oral Tablet No tru: With food or milk (Same as: Xanax) No Longer Active 05/22/2018 [facility]ter Vancomycin 2001 mg: infuse ov er 2.5 hours For adult patients only: Round to nearest 250 mg per Medical Staff approval MEDICATION WASTE Product Size: 1000 mg Product Wasted: ___ mg Inactive 05/22/2018 [facility] Ditropan XL Notes: (Same as: Benson itropan XL) "Do Not Crush" No Longer Active 05/22/2018 [facility] Folic Acid Notes: (Same as: Fo lvite) No Longer Active 05/22/2018 [facility] Zosyn Notes: (Same as: Zosyn) Dosing based on Piperacillin component MEDICATION WASTE Product Size: 3375 mg Product Wasted: ___ mg No Longer Active 05/22/2018 [facility] nter ferrous sulfate Notes: Give wi th food. "Do Not Crush" No Longer Active 05/22/2018 [facility] Lyrica Notes: (Same as: Lyrica) No Longer Active 05/22/2018 [facility] pregabalin 225 mg, Route: PO, Drug form: CAP, Q12H, Dosing Weight 84.091, kg, Start date: 05/21/18 21:00:00 CDT, Duration: 30 day, Stop date: 06/20/18 9:00:00 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 05/22/2018 [facility] nter oxybutynin 5 mg oral tablet, extended release 5 mg = 1 tab, PO, BID, 0 Refill(s) No Longer Active 05/22/2018 [facility] nter pregabalin 75 MG Oral Capsule [Lyrica] 150 mg = 2 cap, PO, TID, # 90 cap, 0 Refill(s) No Longer Active 05/22/2018 [facility] nter Diphenhydramine Notes: (Same a s: Benadryl) Inactive 05/22/2018 [facility] Enoxaparin Notes: (Same as: Lo venox) No Longer Active 05/22/2018 [facility] Acetaminophen 325 MG / Hydrocodone Micheal trate 5 MG Oral Tablet Notes: (Same as: [place] 325/5) Do not ex ceed 4gm/day of acetaminophen. No Longer Active 05/21/2018 [facility] Lactated Ringers IV 1,000 mL 1 ,000 mL, Rate: 100 ml/hr, Infuse over: 10 hr, Route: IV, Dosing Weight 84.091 kg, Total Volume: 1,000, Start date: 05/21/18 18:48:00 CDT, Duration: 30 day, Stop date: 06/20/18 18:47:00 OPTOMETRIST PRESIDENT/PRACTICE OWNER, 2.08, m2 No Longer Active 05/21/2018 [facility] nter Calcium Chloride 0.0014 MEQ/ML / Potassi um Chloride 0.004 MEQ/ML / Sodium Chloride 0.103 MEQ/ML / Sodium Lactate 0.028 MEQ/ML Injectable Solution 1,000 mL, 1,000 ml/hr, Infuse Over: 1 hr , Route: IV, 1,000, Drug form: INJ, ONCE, Priority: STAT, Dosing Weight 84.091 kg, Start date: 05/21/18 18:48:00 CDT, Stop date: 05/21/18 18:48:00 CDT Inactive 05/21/2018 [facility] nter Dilaudid 1 mg, Route: IVP, ONC E, Dosing Weight 84.091, kg, Priority: STAT, Start date: 05/21/18 18:10:00 CDT, Stop date: 05/21/18 18:10:00 CDT Inactive 05/21/2018 [facility] Glucagon 1 mg, Route: IM, Drug form: PDR/INJ, PRN, Dosing Weight 84.091, kg, PRN Blood Glucose Results, Start date: 05/21/18 16:35:00 CDT, Duration: 30 day, Stop date: 06/20/18 15:34:00 OPTOMETRIST PRESIDENT/PRACTICE OWNER No Longer Active 05/21/2018 [facility] Dextrose 50% Syringe 25 gm, 50 mL, Route: IVP, Drug Form: INJ, Dosing Weight 84.091, kg, PRN, PRN Blood Glucose Results, Start date: 05/21/18 16:35:00 CDT, Duration: 30 day, Stop date: 06/20/18 15:34:00 OPTOMETRIST PRESIDENT/PRACTICE OWNER No Longer Active 05/21/2018 [facility] Metoprolol Notes: (Same as: Lo pressor) Push over 2 minutes Inactive 05/21/2018 [facility] Iohexol 100 mL, Route: IVP, Dr ug Form: SOLN, Dosing Weight 84.091, kg, ONCALL, STAT, Start date: 05/21/18 12:16:00 CDT, Duration: 1 doses or times, Weight = 75 - 94kg -- "To be infused by Radiology Staff ONLY" Inactive 05/21/2018 [facility] Morphine Notes: (Same as:MORPh ine Sulfate) Inactive 05/21/2018 [facility] Ondansetron Notes: (Same as: Kory davis) MEDICATION WASTE Product Size: 4 mg Product Wasted: ___ mg Inactive 05/21/2018 [facility] Zosyn Notes: (Same as: Zosyn) Dosing based on Piperacillin component MEDICATION WASTE Product Size: 3375 mg Product Wasted: ___ mg Inactive 05/21/2018 [facility] Vancomycin 2001 mg: infuse ov er 2.5 hours For adult patients only: Round to nearest 250 mg per Medical Staff approval MEDICATION WASTE Product Size: 1000 mg Product Wasted: ___ mg Inactive 05/21/2018 [facility] Morphine 4 mg, Route: IVP, ONC E, Dosing Weight 84.091, kg, Priority: STAT, Start date: 05/21/18 10:21:00 CDT, Stop date: 05/21/18 10:21:00 CDT Inactive 05/21/2018 [facility] Ondansetron Notes: (Same as: Kory davis) MEDICATION WASTE Product Size: 4 mg Product Wasted: _0_ mg Inactive 05/21/2018 [facility] Calcium Chloride 0.0014 MEQ/ML / Potassi um Chloride 0.004 MEQ/ML / Sodium Chloride 0.103 MEQ/ML / Sodium Lactate 0.028 MEQ/ML Injectable Solution 2,000 mL, 2,000 ml/hr, Route: IV, ONCE, Priority: STAT, Dosing Weight 84.091 kg, Start date: 05/21/18 10:11:00 CDT, Stop date: 05/21/18 10:11:00 CDT Inactive 05/21/2018 [facility] Saline Flush 0.9% Notes: (Same as: BD Posiflush) No Longer Active 05/21/2018 [facility] Dilaudid Notes: Same as Dilaud id Inactive 03/19/2018 [facility] hydromorphone 4 mg oral tablet 4 mg = 1 tab, PO, Q6H, PRN Pain Score 7-10, X 7 day, # 28 tab, 0 Refill(s), other No Longer Active 03/19/2018 [facility] ascorbic acid 1,000 mg = 2 [...] Hydrocodone Micheal trate 5 MG Oral Tablet [[place] 5/325] Notes: (Same as: [place] 325/5) Do not ex ceed 4gm/day of [...] Stop date: 03/14/18 20:55:00 CDT Inactive 03/15/2018 [facility] vancomycin 1.25 g/250 mL-NaCl 0.9% intravenous solutio n 1.25 gm, IV, Q12H, # 40 bag, 0 Refill(s) Active 01/20/2018 [facility] cefepime 1 g intravenous injection 1 gm, IV, Q12H, # 40 bag, 0 Refill(s) No Longer Active 01/20/2018 [facility] Vitamin C Notes: (Same as: Vit ayala C) Inactive 01/20/2018 [facility] Enoxaparin 30 mg = 0.3 mL, SUB -Q, [id number], 0 Refill(s) Active 01/17/2018 [facility] hydromorphone 4 mg oral tablet 4 mg = 1 tab, PO, Q3H, PRN Pain Score 7-10, 0 Refill(s) Active 01/17/2018 [facility] Sodium Chloride 0.154 MEQ/ML Inhalant Solution 0.09 gm = 10 mL, IVP, PRN, PRN Line Flush, 0 Refill(s) Active 01/17/2018 [facility] cefepime 1 gm, IVPB, Q8H, 0 Re fill(s) No Longer Active 01/17/2018 [facility] please dont give 8PM vanc dose please dont give 8PM vanc dose, before 1930 trough is drawn, Drug form: MISC, Route: MISC, ONCE, 01/16/18 19:30:00 CDT, Stop date: 01/16/18 19:30:00 CDT Inactive 01/17/2018 [facility] Levi packet Notes: (Same as: Levi Jessie) No Longer Active 01/16/2018 [facility] multivitamin Notes: (Same as:O ne Tab Daily, Tab-A-Mima + Beta Carotene) Give with food. No Longer Active 01/16/2018 [facility] Folic Acid Notes: (Same as: Fo lvite) No Longer Active 01/16/2018 [facility] ferrous sulfate Notes: Give wi th food. "Do Not Crush" No Longer Active 01/16/2018 [facility] pregabalin Notes: (Same as: Ly steve) No Longer Active 01/16/2018 [facility] Amitriptyline Notes: (Same as: Elavil) No Longer Active 01/16/2018 [facility] Vancomycin Notes: TIME CRITICA L MEDICATION (Same As: Vancocin) For adult patients only: Round to nearest 250 mg per Medical Staff approval No Longer Active 01/16/2018 [facility] cefepime Notes: (Same As: Franco guaman) MEDICATION WASTE Product Size: 1000 mg Product Wasted: ___ mg No Longer Active 01/15/2018 [facility] Zinc Sulfate Notes: (Zinc sulf ate capsule) - 220 mg Zinc sulfate = 50 mg elemental zinc Same as Zinc Sulfate No Longer Active 01/15/2018 [facility] sennosides, FDC Notes: (Same a s: Senokot) No Longer Active 01/15/2018 [facility] Ditropan XL Notes: (Same as: D itropan XL) "Do Not Crush" No Longer Active 01/15/2018 [facility] Docusate Sodium 100 MG Oral Capsule Notes: (Same as: Colace) (Do Not Crush) No Longer Active 01/15/2018 [facility] Santyl Notes: (Same As: Santyl) No Longer Active 01/15/2018 [facility] pantoprazole Notes: Tablet miles uld not be chewed or crushed. (Same as: Protonix) N o Longer Active 01/15/2018 [facility] Baclofen Notes: (Same As: Fitz esal) No Longer Active 01/15/2018 [facility] Vancomycin 1 ea, Route: IV, CONCRETE BLOCK MOLDER, Dosing Weight 77.273, kg, Start date: 01/15/18 12:00:00 CDT, Duration: 42 day, Stop date: 02/26/18 11:59:00 CDT, ABX Indication: Skin/Soft Tissue Infection Inactive 01/15/2018 [facility] Enoxaparin Notes: (Same as: Lo venox) No Longer Active 01/15/2018 [facility] tizanidine Notes: (Same As: Za naflex) No Longer Active 01/15/2018 [facility] Dilaudid Notes: (Same as: Dila udid) No Longer Active 01/15/2018 [facility] Alprazolam 2 MG Oral Tablet No tru: With food or milk (Same as: Xanax) No Longer Active 01/15/2018 [facility] Sodium Chloride 0.9% (Bolus) IV 2,318.19 mL, 2318.19 ml/hr, Infuse Over: 1 hr, Route: IV, 2,318.19, Drug form: INJ, ONCE, Priority: STAT, Dosing Weight 77.273 kg, Start date: 01/15/18 11:28:00 CDT, Stop date: 01/15/18 11:28:00 CDT No Longe r Active 01/15/2018 [facility] Fentanyl 50 microgram, Route: IVP, ONCE, Dosing Weight 77.273, kg, Priority: STAT, Start date: 01/15/18 7:59:00 CDT, Stop date: 01/15/18 7:59:00 CDT Inactive 01/15/2018 [facility] cefepime Notes: (Same As: Franco guaman) MEDICATION WASTE Product Size: 1000 mg Product Wasted: ___ mg Inactive 01/15/2018 [facility] Vancomycin 2001 mg: infuse ov er 2.5 hours For adult patients only: Round to nearest 250 mg per Medical Staff approval MEDICATION WASTE Product Size: 1000 mg Product Wasted: ___ mg Inactive 01/15/2018 [facility] Sodium Chloride 0.9% (Bolus) IV 1,000 mL, 1000 ml/hr, Infuse Over: 1 hr, Route: IV, 1,000, Drug form: INJ, ONCE, Priority: STAT, Dosing Weight 77.273 kg, Start date: 01/15/18 6:09:00 CDT, Stop date: 01/15/18 6:09:00 CDT Inactive 01/15/2018 [facility] Saline Flush 0.9% Notes: (Same as: BD Posiflush) No Longer Active 01/15/2018 [facility] Docusate Sodium 100 MG Oral Capsule 100 mg = 1 cap, PO, BID, # 28 cap, 0 Refill(s), Pharmacy: [facility] [id number] Active 10/22/2017 [facility] Alprazolam 2 MG Oral Tablet PO , BID, PRN Anxiety, 0 Refill(s) Active 10/22/2017 [facility] baclofen 10 mg oral tablet 10 mg = 1 tab, PO, TID, # 42 tab, 0 Refill(s), Pharmacy: [facility] [id number] Active 10/22/2017 [facility] ferrous sulfate 325 mg oral enteric coated tablet 325 mg = 1 tab, PO, Daily, # 30 tab, 0 Refill(s), Pharmacy: [facility] [id number] Active 10/22/2017 [facility] amitriptyline 50 mg oral tablet 50 mg = 1 tab, PO, Bedtime, # 14 tab, 0 Refill(s), Pharmacy: [facility] [id number] Active 10/22/2017 [facility] tizanidine 4 mg oral tablet 4 mg = 1 tab, PO, Q6H, 0 Refill(s) Active 10/22/2017 [facility] pregabalin 75 mg oral capsule 225 mg = 3 cap, PO, Q12H, 0 Refill(s) Active 10/22/2017 [facility] pantoprazole 40 mg oral enteric coated tablet 40 mg = 1 tab, PO, Before Dinner, # 30 tab, 0 Refill(s), Pharmacy: [facility] [id number] Active 10/22/2017 [facility] heparin sodium, porcine 2500 UNT/ML Injectable Solutio n Notes: porcine heparin No Longer Active 10/21/2017 [facility] Oxycodone Hydrochloride 5 MG Oral Tablet Notes: (Same as: Roxicodone) No Longer Active 10/20/2017 [facility] nter NS 1,000 mL 1,000 mL, Rate: 15 0 ml/hr, Infuse over: 6.7 hr, Route: IV, Dosing Weight 72.727 kg, Total Volume: 1,000, Start date: 10/20/17 7:43:00 CDT, Duration: 30 day, Stop date: 11/19/17 7:42:00 CDT, 1.93, m2 No Longer Active 10/20/2017 [facility] NS 1,000 mL 1,000 mL, Rate: 10 0 ml/hr, Infuse over: 10 hr, Route: IV, Dosing Weight 72.727 kg, Total Volume: 1,000, Start date: 10/15/17 19:41:00 CDT, Duration: 30 day, Stop date: 11/14/17 19:40:00 CDT, 1.93, m2 No Longer Active 10/16/2017 [facility] Albuterol 0.83 MG/ML Inhalant Solution Notes: SEE RT DOCUMENTATION (Same as: Proventil) No Longer Active 10/15/2017 [facility]ter Alprazolam 2 MG Oral Tablet No tru: With food or milk (Same as: Xanax) No Longer Active 10/14/2017 [facility]ter apixaban 5 MG Oral Tablet [Eliquis] 5 mg, PO, Q12H, 0 Refill(s) No Longer Active 10/14/2017 [facility] carvedilol 3.125 mg oral tablet 3.125 mg = 1 tab, PO, BID, 0 Refill(s) No Longer Active 10/14/2017 [facility] nter Acetaminophen 325 MG / Hydrocodone Micheal trate 10 MG Oral Tablet [[place] 10/325] 1 tab, PO, Q6H, PRN for pain, 0 Refill(s ) No Longer Active 10/14/2017 [facility] Alprazolam 2 MG Oral Tablet 2 mg = 1 tab, PO, BID, 0 Refill(s) No Longer Active 10/14/2017 [facility] 24 HR Oxybutynin chloride 10 MG Extended Release Tablet [Ditropan] 10 mg = 1 tab, PO, BID, 0 Refill(s) Active 10/14/2017 [facility] nter multivitamin 1 tab, PO, Daily, 0 Refill(s) Active 10/14/2017 [facility] tizanidine 4 mg oral tablet 4 mg = 1 tab, PO, TID, 0 Refill(s) No Longer Active 10/14/2017 [facility] zinc sulfate 220 mg oral tablet 220 mg = 1 tab, PO, Daily, # 100 tab, 0 Refill(s) Active 10/14/2017 [facility]ter COLLAGENASE 0.25 UNT/MG Topical Ointment [Santyl] 1 appl, TOP, Daily, TO RIGHT FOOT NEEDED FOR WOUND CARE, 0 Refill(s) Active 10/14/2017 [facility] pregabalin 75 MG Oral Capsule [Lyrica] 75 mg = 1 cap, PO, BID, 0 Refill(s) No Longer Active 10/14/2017 [facility]ter Folic Acid 1 MG Oral Tablet 1 mg = 1 tab, PO, Daily, 0 Refill(s) Active 10/14/2017 [facility] Senna 8.6 mg oral tablet 8.6 m g = 1 tab, PO, BID, 0 Refill(s) Active 10/14/2017 [facility] Acetaminophen 325 MG Oral Tablet [Tylenol] 650 mg = 2 tab, PO, Q4H, 0 Refill(s) No Longer Active 10/14/2017 [facility] nter vancomycin + Sodium Chloride 0.9% IV 250 mL 1,000 mg, Route: IVPB, Drug form: INJ, [id number], Start date: 10/14/17 5:00:00 CDT, Stop date: 10/22/17 6:00:00 CDT, ABX Indication: Bone/Joint Infection No Longer Active 10/14/2017 [facility] Alprazolam 1 MG Oral Tablet [Xanax] Notes: With food or milk (Same as: Xanax) No Longe r Active 10/12/2017 [facility] nt Alprazolam 2 MG Oral Tablet [Xanax] Notes: With food or milk (Same as: Xanax) No Longe r Active 10/12/2017 [facility]ter Flexeril Notes: Same as Flexer il No Longer Active 10/12/2017 [facility] Santyl Notes: (Same As: Santyl) No Longer Active 10/06/2017 [facility] Vancomycin Notes: TIME CRITICA L MEDICATION (Same As: Vancocin) For adult patients only: Round to nearest 250 mg per Medical Staff approval No Longer Active 10/03/2017 [facility] D5W 1/2NS 1,000 mL 1,000 mL, R ate: 125 ml/hr, Infuse over: 8 hr, Route: IV, Dosing Weight 72.727 kg, Total Volume: 1,000, Start date: 10/02/17 18:40:00 OPTOMETRIST PRESIDENT/PRACTICE OWNER, Duration: 1 doses or times, Stop date: 10/03/17 2:39:00 OPTOMETRIST PRESIDENT/PRACTICE OWNER, 1.93, m2 Inactive 10/03/2017 [facility] Oxycodone Hydrochloride 5 MG Oral Tablet Notes: (Same as: Roxicodone) No Longer Active 10/02/2017 [facility]ter Dilaudid Notes: Same as Dilaud id Inactive 10/01/2017 [facility] vancomycin + Sodium Chloride 0.9% IV 100 mL Notes: TIME CRITICAL MEDICATION (Same As: Vancocin) For adult patients only: Round to nearest 250 mg per Medical Staff approval No Longer Active 09/30/2017 [facility] nter normal saline 0.9% IV 500 mL 5 00 mL, Rate: 500 ml/hr, Infuse over: 1 hr, Route: IV, Dosing Weight 72.727 kg, Total Volume: 500, Start date: 09/30/17 12:42:00 OPTOMETRIST PRESIDENT/PRACTICE OWNER, Duration: 1 doses or times, Stop date: 09/30/17 13:41:00 OPTOMETRIST PRESIDENT/PRACTICE OWNER, 1.93, m2 Inactiv e 09/30/2017 [facility] Melatonin 3 MG Extended Release Tablet Notes: (Same as: Melatonin) No Longer Active 09/29/2017 [facility] meropenem Notes: Same as Barak m MEDICATION WASTE Product Size: 500 mg Product Wasted: ___ mg No Longer Active 09/28/2017 [facility] Dilaudid Notes: Same as Dilaud id Inactive 09/28/2017 [facility] Flexeril Notes: (Same As: Flex eril) Inactive 09/25/2017 [facility] Dilaudid Notes: (Same as: Dila udid) Inactive 09/21/2017 [facility] Sodium Chloride 0.9% (titrate) 250 mL 250 mL, Rate: To prime line and flush remaining blood products., Dosing Weight 72.727, kg, Route: IV, Total Volume: 250, Start Date: 09/19/17 4:12:00 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/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, Duration: 30 day, Stop date: 10/19/17 4:11:00 CDT, Replace Every: 24 hr No Longer Active 09/19/2017 [facility] Fentanyl 50 microgram, Route: IV, ONCE, Dosing Weight 72.727, kg, Start date: 09/17/17 17:39:00 OPTOMETRIST PRESIDENT/PRACTICE OWNER, Stop date: 09/17/17 17:39:00 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 09/17/2017 [facility] Midazolam 1 mg, Route: IV, ONC E, Dosing Weight 72.727, kg, Start date: 09/17/17 17:39:00 OPTOMETRIST PRESIDENT/PRACTICE OWNER, Stop date: 09/17/17 17:39:00 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 09/17/2017 [facility] Midazolam 1 mg, Route: IV, ONC E, Dosing Weight 72.727, kg, Start date: 09/17/17 17:24:00 OPTOMETRIST PRESIDENT/PRACTICE OWNER, Stop date: 09/17/17 17:24:00 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 09/17/2017 [facility] Fentanyl 50 microgram, Route: IV, ONCE, Dosing Weight 72.727, kg, Start date: 09/17/17 17:24:00 OPTOMETRIST PRESIDENT/PRACTICE OWNER, Stop date: 09/17/17 17:24:00 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 09/17/2017 [facility] Albuterol 0.83 MG/ML Inhalant Solution Notes: SEE RT DOCUMENTATION (Same as: Proventil) No Longer Active 09/17/2017 [facility] nter tizanidine Notes: (Same As: Za naflex) No Longer Active 09/16/2017 [facility] Tylenol Notes: Do not exceed 4 gm/day. (Same as: Tylenol) No Longer Active 09/15/2017 [facility] Acetaminophen 325 MG / Hydrocodone Micheal trate 10 MG Oral Tablet [[place] 10/325] Notes: Do not exceed 4gm/day of acetamin ophen. (Same as: [place] 325/10) No Longer Active 09/15/2017 [facility] Tetrahydrocannabinol Notes: (S marva as: Marinol) Non- Formulary Drug. No Longer Active 09/14/2017 [facility] nter vancomycin + Sodium Chloride 0.9% IV 250 mL 2001 mg: infuse over 2.5 hours For adult patients only: Round to nearest 250 mg per Medical Staff approval MEDICATION WASTE Product Size: 1000 mg Product Wasted: ___ mg No Longer Active 09/14/2017 [facility] nter meropenem Notes: Same as Barak jamil MEDICATION WASTE Product Size: 500 mg Product Wasted: ___ mg No Longer Active 09/14/2017 [facility] Amikin + Sodium Chloride 0.9% IV 100 mL Notes: TIME CRITICAL MEDICATION (Same as: Amikin) For adult patients only: Round to nearest 50 mg per Medical Staff approval MEDICATION WASTE Product Size: 1000 mg Product Wasted: ___ mg No Longer Active 09/14/2017 [facility]ter Gentamicin 350 mg, Route: IV, Q24H, Dosing Weight 72.727, kg, Start date: 09/14/17 8:00:00 OPTOMETRIST PRESIDENT/PRACTICE OWNER, Duration: 30 day, Stop date: 10/13/17 8:00:00 CDT Inactive 09/14/2017 [facility] Unasyn 3 gm, Route: IVPB, Drug form: PDR/INJ, [id number], Dosing Weight 72.727, kg, Start date: 09/14/17 8:00:00 OPTOMETRIST PRESIDENT/PRACTICE OWNER, Duration: 30 day, Stop date: 10/14/17 2:00:00 CDT Inactive 09/14/2017 [facility] Vancomycin 750 mg, Route: IVPB , Drug form: INJ, [id number], Dosing Weight 72.727, kg, Start date: 09/14/17 8:00:00 OPTOMETRIST PRESIDENT/PRACTICE OWNER, Duration: 14 day, Stop date: 09/27/17 20:00:00 OPTOMETRIST PRESIDENT/PRACTICE OWNER, ABX Indication: Bone/Joint Infection Inactive 09/14/2017 [facility] Methadone Notes: (Same as: Dol ophine) No Longer Active 09/14/2017 [facility] Baclofen Notes: (Same As: Fitz esal) No Longer Active 09/12/2017 [facility] vancomycin + Sodium Chloride 0.9% IV 250 mL 2001 mg: infuse over 2.5 hours For adult patients only: Round to nearest 250 mg per Medical Staff approval MEDICATION WASTE Product Size: 1000 mg Product Wasted: ___ mg No Longer Active 09/12/2017 [facility]ter Oxycodone Hydrochloride 5 MG Oral Tablet Notes: (Same as: Roxicodone) No Longer Active 09/12/2017 [facility] nter Acetaminophen Notes: Max aceta minophen 4000 mg/day (4 gm/day). (Same as: Tylenol Extra Strength) No Longer Active 09/12/2017 [facility] Enoxaparin Notes: (Same as: Lo venox) No Longer Active 09/12/2017 [facility] Dilaudid Notes: Same as Dilaud id No Longer Active 09/12/2017 [facility] Ativan Notes: (Same as: Ativan) Inactive 09/12/2017 [facility] Amitriptyline Notes: (Same as: Elavil) No Longer Active 09/11/2017 [facility] Acetaminophen 325 MG / Hydrocodone Micheal trate 5 MG Oral Tablet [[place] 5/325] Notes: (Same as: [place] 325/5) Do not ex ceed 4gm/day of acetaminophen. No Longer Activ e 09/11/2017 [facility] remove patch Notes: Remove pat ch 12 hours after application each day. No Longe r Active 09/11/2017 [facility] nter vancomycin + Sodium Chloride 0.9% IV 250 mL 2001 mg: infuse over 2.5 hours For adult patients only: Round to nearest 250 mg per Medical Staff approval MEDICATION WASTE Product Size: 1000 mg Product Wasted: ___ mg No Longer Active 09/10/2017 [facility] nter pantoprazole 40 mg, 1 tab, Rou te: PO, Drug form: ECTAB, Before Dinner, Dosing Weight 72.727, kg, Start date: 09/10/17 16:30:00 [employer]OM[employer] PRESIDENT/PRACTICE OWNER, Duration: 30 day, Stop date: 11/08/17 16:30:00 CDT No Longer Active 09/10/2017 [facility] Docusate Notes: (Same as: Cola ce) (Do Not Crush) No Longer Active 09/10/2017 [facility] Zinc Sulfate Notes: (Zinc sulf ate capsule) - 220 mg Zinc sulfate = 50 mg elemental zinc Same as Zinc Sulfate No Longer Active 09/10/2017 [facility] multivitamin Notes: (Same as:Shantell olmos) WASTE: F/P - Black; E - Municipal Trash Bin Take with food. No Longer Active 09/10/2017 [facility] nter ascorbic acid Notes: (Same as: Vitamin C) No Longer Active 09/10/2017 [facility] pregabalin Notes: (Same as: Ly steve) No Longer Active 09/10/2017 [facility] oxybutynin Notes: Same as: Juliet ropmalik) No Longer Active 09/10/2017 [facility] Folic Acid Notes: (Same as: Fo lvite) No Longer Active 09/10/2017 [facility] ferrous sulfate 325 mg, 1 tab, Route: PO, Drug form: ECTAB, Daily, Dosing Weight 72.727, kg, Start date: 09/10/17 9:00:00 [employer] PRESIDENT/PRACTICE OWNER, Duration: 30 day, Stop date: 11/08/17 9:00:00 CDT No Longer Active 09/10/2017 [facility] duloxetine 60 mg, 1 cap, Route : PO, Drug form: DRC, Daily, Dosing Weight 72.727, kg, Start date: 09/10/17 9:00:00 [employer]OM[employer]RI[employer] PRESIDENT/PRACTICE OWNER, Duration: 30 day, Stop date: 11/08/17 9:00:00 CDT No Longer Active 09/10/2017 [facility] nter Alprazolam 0.5 MG Oral Tablet [Xanax] Notes: With food or milk (Same as: Xanax) No Longer Active 09/10/2017 [facility] nter meropenem Notes: Same as Barak jamil MEDICATION WASTE Product Size: 500 mg Product Wasted: ___ mg No Longer Active 09/10/2017 [facility] carvedilol Notes: Give with fo od. (Same As: Coreg) No Longer Active 09/10/2017 [facility] Lidocaine 0.05 MG/MG Transdermal Patch Notes: Apply only once for up to 12 hours in a 24-hour period (12 hours on and 12 hours off). (Same as: Lidoderm) "Remove old patch before application of new patch" No Longer Active 09/10/2017 [facility] Ondansetron Notes: (Same as: Kory davis) MEDICATION WASTE Product Size: 4 mg Product Wasted: ___ mg No Longer Active 09/10/2017 [facility] Acetaminophen Notes: Do not ex ceed 4 gm/day. (Same as: Tylenol) No Longer Active 09/10/2017 [facility] sennosides, FDC 8.6 MG Oral Tablet Notes: (Same as: Senokot) No Longer Active 09/10/2017 [facility] Docusate Sodium 100 MG Oral Capsule Notes: (Same as: Colace) (Do Not Crush) No Longer Active 09/10/2017 [facility] nter Vancomycin 2001 mg: infuse ov er 2.5 hours For adult patients only: Round to nearest 250 mg per Medical Staff approval MEDICATION WASTE Product Size: 1000 mg Product Wasted: ___ mg Inactive 09/10/2017 [facility] Isolyte S PH 7.4 1,000 mL Note s: (Same as: Isolyte S PH 7.4) No Longer Active 09/10/2017 [facility] Isolyte S 1,000 mL Notes: (Corey e as: Isolyte S PH 7.4) Inactive 09/10/2017 [facility] Isolyte S PH 7.4 1,000 mL Note s: (Same as: Isolyte S PH 7.4) Inactive 09/10/2017 [facility] PlasmaLyte A PH-7.4 1,000 mL N otes: (Same as: Isolyte S PH 7.4) Inactive 09/10/2017 [facility] Dilaudid 1 mg, Route: IV, ONCE , Dosing Weight 72.727, kg, Start date: 09/09/17 23:17:00 [employer] PRESIDENT/PRACTICE OWNER, Stop date: 09/09/17 23:17:00 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 09/10/2017 [facility] meropenem 1,000 mg, Route: IVP B, Drug form: PDR/INJ, ONCE, Dosing Weight 72.727, kg, Priority: STAT, Start date: 09/09/17 22:56:00 [employer]ET[employer] PRESIDENT/PRACTICE OWNER, Stop date: 09/09/17 22:56:00 [employer]OMETRIST PRESIDENT/PRACTICE OWNER, ABX Indication: Bacteremia Inactive 09/10/2017 [facility] meropenem 500 mg, Route: IVPB, Drug form: PDR/INJ, ONCE, Dosing Weight 72.727, kg, Priority: STAT, Start date: 09/09/17 22:49:00 OPTOMETRIST PRESIDENT/PRACTICE OWNER, Stop date: 09/09/17 22:49:00 OPTOMETRIST PRESIDENT/PRACTICE OWNER, ABX Indication: Bacteremia Inactive 09/10/2017 [facility] Calcium Chloride 0.0014 MEQ/ML / Potassi um Chloride 0.004 MEQ/ML / Sodium Chloride 0.103 MEQ/ML / Sodium Lactate 0.028 MEQ/ML Injectable Solution 2,000 mL, 2000 ml/hr, Infuse Over: 1 hr, Route: IV, 2,000, Drug form: INJ, ONCE, Priority: STAT, Dosing Weight 72.727 kg, Start date: 09/09/17 22:48:00 OPTOMETRIST PRESIDENT/PRACTICE OWNER, Stop date: 09/09/17 22:48:00 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 09/10/2017 [facility] nter Saline Flush 0.9% Notes: (Same as: BD Posiflush) No Longer Active 09/10/2017 [facility] Tylenol Notes: Do not exceed 4 gm/day. (Same as: Tylenol) Inactive 09/10/2017 [facility] Acetaminophen 325 MG / Hydrocodone Micheal trate 10 MG Oral Tablet [[place] ] 1 tab, PO, Q6H, PRN for pain, X 6 day, # 24 tab, 0 Refill(s) Active 05/28/2017 [facility] Folic Acid Notes: (Same as: Fo lvite) Inactive 05/28/2017 [facility] ferrous sulfate Notes: Give wi th food. iron elemental [id number] as ferrous sulfate Dose=___mg elemental iron Inactive 05/28/2017 [facility] duloxetine Notes: (Same as: Cy mbalta) (Do Not Crush) Inactive 05/28/2017 [facility] remove patch Notes: Remove old patch before application of new patch. WASTE: F/P - P Waste Black; E - P Waste Black No Longer Active 05/28/2017 [facility] Amitriptyline Notes: (Same as: Elavil) No Longer Active 05/28/2017 [facility] pregabalin Notes: (Same as: Ly steve) No Longer Active 05/28/2017 [facility] remove patch Notes: Remove pat ch 12 hours after application each day. No Longe r Active 05/28/2017 [facility] Lyrica Notes: (Same as: Lyrica) Inactive 05/28/2017 [facility] Lyrica Notes: (Same as: Lyrica) Inactive 05/28/2017 [facility] pregabalin 175 mg, Route: PO, ONCE, Dosing Weight 73.864, kg, Start date: 05/27/17 20:07:00 CDT, Stop date: 05/27/17 20:07:00 CDT Inactive 05/28/2017 [facility] Amitriptyline Notes: (Same as: Elavil) Inactive 05/27/2017 [facility] pregabalin Notes: Same as Lyri ca Inactive 05/27/2017 [facility] APAP/butalbital/caffeine Notes : (nngocrdgoysqe-uxjwstauzq-uvrifajl 325-50-40mg) Do not exceed 4 gm/day of acetaminophen. (Same as: Esgic, Fioricet) No Longer Active 05/27/2017 [facility] carvedilol Notes: Give with fo od. (Same As: Coreg) No Longer Active 05/27/2017 [facility] oxybutynin Notes: Same as: Dit ropan) No Longer Active 05/27/2017 [facility] pantoprazole Notes: Tablet miles uld not be chewed or crushed. (Same as: Protonix) N o Longer Active 05/27/2017 [facility] Aspirin 325 MG / butalbital 50 MG / Caff eine 40 MG Oral Capsule [Fiorinal] 1 cap, Route: PO, Dosing Weight 73.864, kg, Q6H, PRN Headache 1-5, Start date: 05/27/17 14:23:00 CDT, Duration: 30 day, Stop date: 06/26/17 14:22:00 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 05/27/2017 [facility] Nicotine Notes: (Same as: Roney montague) "Remove old patch before application of new patch" WASTE: F/P - P Waste Black; E - P Waste Black No Longer Active 05/27/2017 [facility] Lidocaine 0.05 MG/MG Transdermal Patch Notes: Apply only once for up to 12 hours in a 24-hour period (12 hours on and 12 hours off). (Same as: Lidoderm) "Remove old patch before application of new patch" No Longer Active 05/27/2017 [facility] meropenem 500 mg intravenous injection 500 mg, IV, Q6H, X 10 day, # 40 bag, 0 Refill(s), other Active 05/27/2017 [facility] Levi packet Notes: (Same as: Levi Jessie) No Longer Active 05/27/2017 [facility] Phenergan Notes: (Same as: Phe nergan) No Longer Active 05/24/2017 [facility] multivitamin Notes: (Same as:Shantell olmos) WASTE: F/P - Black; E - Municipal Trash Bin Take with food. No Longer Active 05/24/2017 [facility] ascorbic acid Notes: (Same as: Vitamin C) No Longer Active 05/24/2017 [facility] Zinc Sulfate Notes: (Zinc sulf ate capsule) - 220 mg Zinc sulfate = 50 mg elemental zinc Same as Zinc Sulfate No Longer Active 05/24/2017 [facility] Lorazepam Notes: (Same as: Sarah lao) No Longer Active 05/23/2017 [facility] meropenem Notes: Same as Barak jamil MEDICATION WASTE Product Size: 500 mg Product Wasted: ___ mg No Longer Active 05/22/2017 [facility] multivitamin Notes: (Same as:Shantell olmos) WASTE: F/P - Black; E - Municipal Trash Bin Take with food. No Longer Active 05/22/2017 [facility] ascorbic acid Notes: (Same as: Vitamin C) No Longer Active 05/22/2017 [facility] Zinc Sulfate Notes: (Zinc sulf ate capsule) - 220 mg Zinc sulfate = 50 mg elemental zinc Same as Zinc Sulfate No Longer Active 05/22/2017 [facility] influenza virus vaccine, inactivated Notes: (Same as: Fluzone Quadrivalent, Fluarix Quadrivalent) For 3 years of age and older (0.5 mL IM) Shake well before use N o Longer Active 05/22/2017 [facility] Enoxaparin Notes: (Same as: Lo venox) No Longer Active 05/22/2017 [facility] Vancomycin 2001 mg: infuse ov er 2.5 hours MEDICATION WASTE Product Size: 1000 mg Product Wasted: ___ mg No Longer Active 05/22/2017 [facility] Saline Flush 0.9% Notes: (Same as: BD Posiflush) No Longer Active 05/22/2017 [facility] Acetaminophen Notes: Do not ex ceed 4 gm/day. (Same as: Tylenol) No Longer Active 05/22/2017 [facility] Docusate Notes: (Same as: Cola ce) (Do Not Crush) No Longer Active 05/22/2017 [facility] Ondansetron Notes: (Same as: Kory davis) MEDICATION WASTE Product Size: 4 mg Product Wasted: ___ mg No Longer Active 05/22/2017 [facility] Trazodone Notes: (Same As: Edson yrel) No Longer Active 05/22/2017 [facility] Maalox Advanced Regular Strength SUSP Notes: (aluminum hydroxide-magnesium hyd-simethicone [phone]/5ml 30 ml ud SOLITARIO) No Longer Active 05/22/2017 [facility] Hydralazine Notes: (Same as: A presoline) Push over 5 minutes No Longer Active 05/22/2017 [facility] Albuterol 0.833 MG/ML / Ipratropium Brom laila 0.167 MG/ML Inhalant Solution [DuoNeb] Notes: (Same as: Duoneb) No Longer Active 05/22/2017 [facility] Robitussin 100 mg/5 mL oral liquid Notes: (Same as: Robitussin) No Longer Active 05/22/2017 [facility] sodium chloride 0.45% 1000 ml INJ 1,000 mL 1,000 mL, Rate: 125 ml/hr, Infuse over: 8 hr, Route: IV, Dosing Weight 70.455 kg, Total Volume: 1,000, Start date: 05/22/17 4:52:00 CDT, Duration: 30 day, Stop date: 06/21/17 4:51:00 [employer]OMETRIST PRESIDENT/PRACTICE OWNER No Longer Active 05/22/2017 [facility] Dilaudid Notes: (Same as: Dila udid) No Longer Active 05/22/2017 [facility] Fentanyl 50 microgram, Route: IVP, ONCE, Dosing Weight 70.455, kg, Priority: STAT, Start date: 05/22/17 4:20:00 CDT, Stop date: 05/22/17 4:20:00 CDT Inactive 05/22/2017 [facility] Fentanyl 25 microgram, Route: IVP, ONCE, Dosing Weight 70.455, kg, Priority: STAT, Start date: 05/22/17 2:42:00 CDT, Stop date: 05/22/17 2:42:00 CDT Inactive 05/22/2017 [facility] meropenem Notes: (Same as: Sandy rem) . MEDICATION WASTE Product Size: 1000 mg Product Wasted: ___ mg Inactive 05/22/2017 [facility] NS (Bolus) IV 1,000 mL, 1,000 ml/hr, Infuse Over: 1 hr, Route: IV, ONCE, Priority: STAT, Dosing Weight 70.455 kg, Start date: 05/22/17 1:25:00 CDT, Duration: 1 doses or times, Stop date: 05/22/17 1:25:00 CDT Inactive 05/22/2017 [facility] Zofran 4 mg, Route: IVP, Drug form: INJ, ONCE, Dosing Weight 70.455, kg, Priority: STAT, Start date: 05/22/17 1:25:00 CDT, Stop date: 05/22/17 1:25:00 CDT Inactive 05/22/2017 [facility] Tylenol 975 mg, Route: PO, Arden g form: TAB, ONCE, Dosing Weight 70.455, kg, Priority: STAT, Start date: 05/22/17 1:24:00 CDT, Stop date: 05/22/17 1:24:00 CDT Inactive 05/22/2017 [facility] Alprazolam 2 MG Oral Tablet [Xanax] Notes: With food or milk (Same as: Xanax) No Longe r Active 03/07/2017 [facility] nter remove patch Notes: Remove old patch before application of new patch. No Longer Active 03/07/2017 [facility] remove patch Notes: Remove old patch before application of new patch. No Longer Active 03/07/2017 [facility] pantoprazole 40 mg oral enteric coated tablet 40 mg = 1 tab, PO, Before Dinner, # 90 tab, 3 Refill(s) Active 03/06/2017 [facility] Folic Acid 1 MG Oral Tablet 1 mg = 1 tab, PO, Daily, # 90 tab, 3 Refill(s) Active 03/06/2017 [facility] ferrous sulfate 325 mg oral enteric coated tablet 325 mg = 1 tab, PO, Daily, # 90 tab, 3 Refill(s) Active 03/06/2017 [facility]ter amitriptyline 50 mg oral tablet 50 mg = 1 tab, PO, Bedtime, # 90 tab, 3 Refill(s) Active 03/06/2017 [facility] Docusate Sodium 100 MG Oral Capsule 100 mg = 1 cap, PO, BID, PRN Constipation, # 20 cap, 0 Refill(s) Active 03/06/2017 [facility]ter minocycline 100 mg oral capsule 100 mg = 1 cap, PO, [id number], X 37 day, # 74 cap, 0 Refill(s) Active 03/06/2017 [facility]ter metroNIDAZOLE 250 mg oral tablet 500 mg = 2 tab, PO, [id number], X 37 day, # 222 tab, 0 Refill(s) Active 03/06/2017 [facility] Lidocaine 0.05 MG/MG Transdermal Patch 1 patch, TOP, Q24H, # 90 patch, 3 Refill(s) Active 03/06/2017 [facility] melatonin 3 mg oral tablet 9 m g, PO, Bedtime, PRN as needed for insomnia, X 90 day, # 270 tab, 3 Refill(s) Active 03/06/2017 [facility] DULoxetine 60 mg oral delayed release capsule 60 mg = 1 cap, PO, Daily, # 90 cap, 3 Refill(s) Active 03/06/2017 [facility] ciprofloxacin 500 mg oral tablet 500 mg = 1 tab, PO, [id number], X 37 day, # 74 tab, 0 Refill(s) Active 03/06/2017 [facility] pregabalin 75 mg oral capsule 225 mg = 3 cap, PO, Q12H, # 540 cap, 3 Refill(s) Active 03/06/2017 [facility] carvedilol 3.125 mg oral tablet 3.125 mg = 1 tab, PO, BID-Meals, # 180 tab, 3 Refill(s) Active 03/06/2017 [facility] Alprazolam 0.5 MG Oral Tablet [Xanax] PO, Daily, 0 Refill(s) Active 03/06/2017 [facility] 24 HR Nicotine 0.583 MG/HR Transdermal Patch = 1 patch, TOP, Q24H, X 90 day, # 90 patch, 1 Refill(s) Active 03/06/2017 [facility] senna 8.6 mg oral tablet 8.6 m g = 1 tab, PO, BID, PRN Constipation, X 90 day, # 180 tab, 3 Refill(s) Active 03/06/2017 [facility] oxybutynin 5 mg oral tablet, extended release 15 mg = 3 tab, PO, BID, # 540 tab, 3 Refill(s) Active 03/06/2017 [facility] Alprazolam 2 MG Oral Tablet [Xanax] Notes: With food or milk (Same as: Xanax) No Longe r Active 03/05/2017 [facility] Alprazolam 2 MG Oral Tablet [Xanax] Notes: (Same as: Xanax) 0.125 mg = 1/2 x 0.25 mg TAB With food or milk Inactive 03/04/2017 [facility] Acetaminophen 325 MG / Hydrocodone Micheal trate 5 MG Oral Tablet [[place] 5/325] Notes: (Same as: [place] 325/5) Do not ex ceed 4gm/day of acetaminophen. No Longer Activ e 03/04/2017 [facility] Acetaminophen 325 MG / Hydrocodone Micheal trate 5 MG Oral Tablet [[place] 5/325] 1 tab, Route: PO, Drug Form: TAB, Dosing Weight 67.273, kg, Q4H, PRN Pain Score 1-3, Start date: 03/04/17 16:29:00 CDT, Duration: 30 day, Stop date: 04/03/17 16:28:00 CDT Inactive 03/04/2017 [facility] Cymbalta Notes: (Same as: Cymb adarsh) (Do Not Crush) No Longer Active 03/04/2017 [facility] Fentanyl Notes: (Same as: Dura gesic) Check for product integrity. Apply to intact skin "Remove old patch before application of new patch" 1 patch delivers 12.5 micrograms Inactive 03/04/2017 [facility] nter 72 HR Fentanyl 0.075 MG/HR Transdermal Patch 1 patch, Route: TOP, Dosing Weight 68.182, kg, Q72H, Start date: 03/04/17 6:00:00 CDT, Duration: 30 day, Stop date: 03/31/17 6:00:00 CDT Inactive 03/04/2017 [facility] Fentanyl Notes: (Same as: Dura gesic) Check for product integrity. Apply to intact skin "Remove old patch before application of new patch" 1 patch delivers 12.5 micrograms No Longer Active 03/04/2017 [facility] sennosides, FDC Notes: (Same a s: Senokot) No Longer Active 03/04/2017 [facility] sennosides, FDC 1 tab, Route: PO, Drug Form: TAB, Dosing Weight 68.182, kg, Daily, PRN Constipation, Start date: 03/03/17 22:26:00 CDT, Duration: 30 day, Stop date: 04/02/17 22:25:00 CDT Inactive 03/04/2017 [facility] Tylenol Notes: Do not exceed 4 gm/day. (Same as: Tylenol) Inactive 03/04/2017 [facility] Levi packet Notes: (Same as: Levi Jessie) No Longer Active 03/03/2017 [facility] Beneprotein 7 gm pkt Notes: (S marva as: Beneprotein) No Longer Active 03/03/2017 [facility] Oxycontin Notes: Do not crush or chew. (Same as: OxyContin) No Longer Active 03/03/2017 [facility] pregabalin Notes: (Same as: Ly steve) No Longer Active 03/03/2017 [facility] Magnesium Sulfate Notes: WASTE : F/P - Sink; E - Municipal Trash Bin No Longer Active 03/02/2017 [facility] Oxycodone Hydrochloride 5 MG Oral Tablet Notes: (Same as: Roxicodone) No Longer Active 03/02/2017 [facility] remove patch Notes: Remove pat ch 12 hours after application each day. No Longe r Active 03/02/2017 [facility] Melatonin 3 MG Extended Release Tablet Notes: (Same as: Melatonin) No Longer Active 03/02/2017 [facility] Oxycontin Notes: Do not crush or chew. (Same as: OxyContin) No Longer Active 03/02/2017 [facility] carvedilol Notes: Give with fo od. (Same As: Coreg) No Longer Active 03/01/2017 [facility] Lidocaine 0.05 MG/MG Transdermal Patch Notes: Apply only once for up to 12 hours in a 24-hour period (12 hours on and 12 hours off). (Same as: Lidoderm) "Remove old patch before application of new patch" No Longer Active 03/01/2017 [facility] Flexeril Notes: Same as Flexer il No Longer Active 03/01/2017 [facility] Oxycodone Hydrochloride 5 MG Oral Tablet Notes: (Same as: Roxicodone) No Longer Active 03/01/2017 [facility] Habitrol Notes: (Same as: Roney montague) "Remove old patch before application of new patch" WASTE: F/P - P Waste Black; E - P Waste Black No Longer Active 03/01/2017 [facility] Nicotine 4 mg, Route: Dr francis BRYANT form: GUM, Q2H, Dosing Weight 68.182, kg, PRN as needed for smoking cessation, Priority: NOW, Start date: 03/01/17 9:01:00 CDT, Duration: 30 day, Stop date: 03/31/17 9:00:00 CDT Inactive 03/01/2017 [facility] Metronidazole Notes: (Same as: Flagyl) Take with food/ avoid alcohol No Longer Active 02/28/2017 [facility] Minocycline Notes: (Same as:Nadja nochoracio) No milk/antacids/iron. No Longer Active 02/28/2017 [facility] Ciprofloxacin Notes: May inter fere w/enteral feedings - Take 1 hr before or 2 hrs after antacids, dairy pdt & minerals. On empty stomach. No Longer Active 02/28/2017 [facility] Hepatitis A Vaccine, Inactivated Notes: (Same as: Havrix) Non-Formulary Drug. Inactive 02/28/2017 [facility] Amoxicillin 500 MG / Clavulanate 125 MG Oral Tablet [Augmentin 500-mg] Notes: With food. (Same as: Augmentin 50 0) Inactive 02/28/2017 [facility] Magnesium Sulfate Notes: WASTE : F/P - Sink; E - Municipal Trash Bin Inactive 02/28/2017 [facility] ertapenem Notes: (Same as: INV anz) Refrigerate. NOT COMPATIBLE WITH D5W. Stable in refrigerator for 24 hours MEDICATION WASTE Product Size: 1000 mg Product Wasted: ___ mg No Longer Active 02/28/2017 [facility] Hepatitis A Vaccine, Inactivated Notes: (Same as: Havrix) Non-Formulary Drug. Inactive 02/28/2017 [facility] Sulfamethoxazole 800 MG / Trimethoprim 1 60 MG Oral Tablet [Bactrim] Notes: One DS tablet = trimethoprim 160m g + sulfamethoxazole 800 mg Dose based on trimethoprim component On empty stomach with a glass of water. (Same As: Bactrim DS, Septra DS) Inactive 02/28/2017 [facility] nter sodium chloride 0.9% 1000 ml INJ 1,000 mL 1,000 mL, Rate: 75 ml/hr, Infuse over: 13.3 hr, Route: IV, Dosing Weight 68.182 kg, Total Volume: 1,000, Start date: 02/28/17 8:55:00 CDT, Stop date: 03/30/17 8:54:00 CDT No Longer Active 02/28/2017 [facility] Oxycontin 30 mg, 2 tab, Route: PO, Drug form: ERTAB, Q12H, Dosing Weight 68.182, kg, Start date: 02/27/17 21:00:00 CDT, Duration: 30 day, Stop date: 03/29/17 9:00:00 CDT No Longer Active 02/28/2017 [facility] Dilaudid 1 mg, Route: IVP, ONC E, Dosing Weight 68.182, kg, Priority: STAT, Start date: 02/27/17 20:39:00 CDT, Stop date: 02/27/17 20:39:00 CDT Inactive 02/28/2017 [facility] Dilaudid 1 mg, Route: IVP, ONC E, Dosing Weight 68.182, kg, Priority: STAT, Start date: 02/27/17 19:36:00 CDT, Stop date: 02/27/17 19:36:00 CDT Inactive 02/28/2017 [facility] Oxycodone Hydrochloride 5 MG Oral Tablet Notes: (Same as: Roxicodone) No Longer Active 02/27/2017 [facility] potassium phosphate-sodium phosphate 250 mg-280 mg-160 mg oral powder for reconstitution 1 pkt, Route: PO, Drug Form: PDR/REC, Dosing Weight 68.182, kg, ONCE, Start date: 02/27/17 14:58:00 CDT, Stop date: 02/27/17 14:58:00 CDT Inactive 02/27/2017 [facility] Tums Notes: (Same As: Tums) Ca lcium Carbonate 500 mg = 200 mg elemental calcium Dose = mg calcium carbonate ( mg elemental calcium) No Longer Active 02/27/2017 [facility] Ditropan XL Notes: (Same as: D itropan XL) "Do Not Crush" No Longer Active 02/27/2017 [facility] Amitriptyline Notes: (Same as: Elavil) No Longer Active 02/27/2017 [facility] Amikacin Notes: TIME CRITICAL MEDICATION (Same as: Amikin) MEDICATION WASTE Product Size: 500 mg Product Wasted: _0__ mg No Longer Active 02/26/2017 [facility] Acetaminophen 325 MG / Hydrocodone Micheal trate 10 MG Oral Tablet [[place] 10/325] Notes: Do not exceed 4gm/day of acetamin ophen. (Same as: [place] 325/10) No Longer Active 02/26/2017 [facility] Magnesium Oxide Notes: (Same a s: Mag-Ox 400) Magnesium oxide [id number] elemental magnesium Dose=____mg magnesium oxide (___mg elemental magnesium) Inactive 02/26/2017 [facility] MAGNESIUM GLUCONATE Notes: (Sa me as: [place]) Magnesium gluconate 500mg=27mg elemental magnesium Dose= mg magnesium gluconate(___mg elemental magnesium) Inactive 02/26/2017 [facility] Benadryl Notes: (Same as: [place] dryl) Inactive 02/26/2017 [facility] Morphine Sulfate 15 MG Oral Tablet Notes: (Same as:MORPhine Sulfate) Inactive 02/26/2017 [facility] Morphine 4 mg, Route: IVP, ONC E, Dosing Weight 68.182, kg, Start date: 02/25/17 20:58:00 CDT, Stop date: 02/25/17 20:58:00 CDT Inactive 02/26/2017 [facility] meropenem Notes: (Same as: Sandy rem) . MEDICATION WASTE Product Size: 1000 mg Product Wasted: ___ mg No Longer Active 02/25/2017 [facility] Amikacin 1,022.73 mg, Route: I V, ONCE, Dosing Weight 68.182, kg, Start date: 02/25/17 10:48:00 CDT, Stop date: 02/25/17 10:48:00 CDT Inactive 02/25/2017 [facility] Saline Flush 0.9% Notes: (Same as: BD Posiflush) No Longer Active 02/25/2017 [facility] Lidocaine Hydrochloride 10 MG/ML Injectable Solution Notes: (Same as: Xylocaine) No Longer Active 02/25/2017 [facility] Saline Flush 0.9% Notes: (Same as: BD Posiflush) No Longer Active 02/25/2017 [facility] pantoprazole Notes: Tablet miles uld not be chewed or crushed. (Same as: Protonix) N o Longer Active 02/24/2017 [facility] nter Docusate Notes: (Same as: Cola ce) (Do Not Crush) No Longer Active 02/24/2017 [facility] pregabalin Notes: (Same as: Ly steve) No Longer Active 02/24/2017 [facility] POLYETHYLENE GLYCOL 3350 Notes : Dissolve in 8 oz of water or juice. (Same as: Miralax) No Longer Active 02/24/2017 [facility] nter Folic Acid Notes: (Same as: Fo lvite) No Longer Active 02/24/2017 [facility] Alprazolam 2 MG Oral Tablet [Xanax] Notes: With food or milk (Same as: Xanax) No Longe r Active 02/24/2017 [facility] nter heparin sodium, porcine 2500 UNT/ML Injectable Solutio n Notes: porcine heparin No Longer Active 02/24/2017 [facility] nter ferrous sulfate Notes: Give wi th food. "Do Not Crush" No Longer Active 02/24/2017 [facility] carvedilol Notes: Give with fo od. (Same As: Coreg) No Longer Active 02/24/2017 [facility] Vancomycin 2001 mg: infuse ov er 2.5 hours MEDICATION WASTE Product Size: 1000 mg Product Wasted: ___ mg No Longer Active 02/24/2017 [facility] Piperacillin / tazobactam Note s: (Same as: Zosyn) Dosing based on Piperacillin component MEDICATION WASTE Product Size: 3375 mg Product Wasted: ___ mg No Longer Active 02/24/2017 [facility] nter Flexeril Notes: (Same As: Flex eril) No Longer Active 02/24/2017 [facility] Acetaminophen 325 MG / Hydrocodone Micheal trate 10 MG Oral Tablet [[place] 10/325] Notes: Do not exceed 4gm/day of acetamin ophen. (Same as: [place] 325/10) No Longer Active 02/24/2017 [facility] sodium chloride 0.9% 1000 ml INJ 1,000 mL 1,000 mL, Rate: 125 ml/hr, Infuse over: 8 hr, Route: IV, Dosing Weight 65.909 kg, Total Volume: 1,000, Start date: 02/23/17 22:36:00 CDT, Stop date: 03/26/17 22:35:00 CDT No Longer Active 02/24/2017 [facility] Ondansetron Notes: (Same as: Kory davis) MEDICATION WASTE Product Size: 4 mg Product Wasted: ___ mg No Longer Active 02/24/2017 [facility] iodixanol 86 mL, Route: IVP, D rug Form: SOLN, Dosing Weight 65.909, kg, ONCALL, STAT, Start date: 02/23/17 16:40:00 CDT, Duration: 1 doses or times, Dose = 2.2ml/kg, Max dose = 100ml -- "To be infused by Radi ology Staff ONLY" Inactive 02/23/2017 [facility] Fentanyl Notes: (Same as: Subl imaze) Preservative free. Inactive 02/23/2017 [facility] Sodium Chloride 0.9% (Bolus) IV 1,977.27 mL, 1977.27 ml/hr, Infuse Over: 1 hr, Route: IV, 1,977.27, Drug form: INJ, ONCE, Priority: STAT, Dosing Weight 65.909 kg, Start date: 02/23/17 14:52:00 CDT, Duration: 1 doses or times, Stop date: 02/23/17 14:52:00 CDT, Sepsis dose. Inactive 02/23/2017 [facility] cefepime Notes: (Same as: Franco guaman) MEDICATION WASTE Product Size: 2000 mg Product Wasted: ___ mg Inactive 02/23/2017 [facility] Vancomycin 2001 mg: infuse ov er 2.5 hours MEDICATION WASTE Product Size: 1000 mg Product Wasted: ___ mg Inactive 02/23/2017 [facility] Methadone Notes: (Same as: Hao espinozaine) Inactive 01/21/2017 [facility] Ciprofloxacin 500 MG Oral Tablet [Cipro] 500 mg = 1 tab, PO, Q12H, X 7 day, # 14 tab, 0 Refill(s) Active 01/20/2017 [facility] Dilaudid 1 mg, 1 mL, Route: IV P, Drug form: INJ, Q4H, Dosing Weight 70.455, kg, PRN Pain Score 7-10, Start date: 01/20/17 10:08:00 CDT, Duration: 30 day, Stop date: 02/19/17 10:07:00 CDT Inactive 01/20/2017 [facility] Dilaudid 1 mg, 1 mL, Route: IV P, Drug form: INJ, Q3H, Dosing Weight 70.455, kg, PRN Pain Score 7-10, Start date: 01/19/17 15:23:00 CDT, Duration: 30 day, Stop date: 02/18/17 15:22:00 CDT No Longer Active 01/19/2017 [facility] oxyCODONE 5 mg oral tablet Not es: (Same as: Roxicodone) No Longer Active 01/18/2017 [facility] Hydromorphone 0.5 mg, 0.5 mL, Route: IV, Drug form: INJ, Q6H, Dosing Weight 70.455, kg, PRN Pain Score 7-10, Start date: 01/18/17 10:36:00 CDT, Stop date: 02/17/17 10:35:00 CDT No Longer Active 01/18/2017 [facility] Ditropan XL Notes: (Same as: D itropan XL) "Do Not Crush" No Longer Active 01/18/2017 [facility] Beneprotein 7 gm pkt Notes: (S marva as: Beneprotein) No Longer Active 01/17/2017 [facility] Levi packet Notes: (Same as: Levi Jessie) No Longer Active 01/17/2017 [facility] pantoprazole Notes: Tablet miles uld not be chewed or crushed. (Same as: Protonix) N o Longer Active 01/17/2017 [facility] Folic Acid Notes: (Same as: Fo lvite) No Longer Active 01/17/2017 [facility] Alprazolam 2 MG Oral Tablet [Xanax] Notes: With food or milk (Same as: Xanax) No Longe r Active 01/17/2017 [facility] tolterodine Notes: Non-Formula ry Do Not Crush. (Same As: Detrol LA) Inactive 01/17/2017 [facility] tizanidine Notes: (Same As: Za naflex) No Longer Active 01/17/2017 [facility] pregabalin Notes: (Same as: Ly steve) No Longer Active 01/17/2017 [facility] POLYETHYLENE GLYCOL 3350 Notes : Dissolve in 8 oz of water or juice. (Same as: Miralax) No Longer Active 01/17/2017 [facility] Amitriptyline Notes: (Same as: Elavil) No Longer Active 01/17/2017 [facility] carvedilol Notes: Give with fo od. (Same As: Coreg) No Longer Active 01/17/2017 [facility] Docusate Sodium 100 MG Oral Capsule Notes: (Same as: Colace) (Do Not Crush) No Longer Active 01/16/2017 [facility] Zofran Notes: (Same as: Zofran ) MEDICATION WASTE Product Size: 4 mg Product Wasted: ___ mg No Longer Active 01/16/2017 [facility] Alprazolam 2 MG Oral Tablet [Xanax] 2 mg = 1 tab, PO, BID, # 20 tab, 0 Refill(s) Active 01/16/2017 [facility] Zosyn Notes: (Same as: Zosyn) Dosing based on Piperacillin component MEDICATION WASTE Product Size: 3375 mg Product Wasted: ___ mg No Longer Active 01/16/2017 [facility] Acetaminophen 325 MG / Hydrocodone Micheal trate 5 MG Oral Tablet [[place] 5/325] Notes: (Same as: [place] 325/5) Do not ex ceed 4gm/day of acetaminophen. No Longer Activ e 01/16/2017 [facility] Saline Flush 0.9% Notes: (Same as: BD Posiflush) No Longer Active 01/16/2017 [facility] Sodium Chloride 0.154 MEQ/ML Injectable Solution 1,000 mL, Rate: 125 ml/hr, Infuse over: 8 hr, Route: IV, Dosing Weight 70.455 kg, Total Volume: 1,000, Start date: 01/16/17 5:18:00 CDT, Duration: 30 day, Stop date: 02/15/17 5:17:00 CDT No Longer Active 01/16/2017 [facility] Acetaminophen Notes: Do not ex ceed 4 gm/day. (Same as: Tylenol) No Longer Active 01/16/2017 [facility] Zosyn 3.375 gm, Route: IVPB, O NCE, Dosing Weight 70.455, kg, Priority: STAT, Start date: 01/16/17 0:45:00 CDT, Duration: 1 doses or times, Stop date: 01/16/17 0:45:00 CDT, ABX Indication: Genital Tract Infection Inactive 01/16/2017 [facility] Dilaudid 1 mg, Route: IVP, ONC E, Dosing Weight 70.455, kg, Priority: STAT, Start date: 01/15/17 23:45:00 CDT, Stop date: 01/15/17 23:45:00 CDT No Longer Active 01/16/2017 [facility] Zofran 4 mg, Route: IVP, Drug form: INJ, ONCE, Dosing Weight 70.455, kg, Priority: STAT, Start date: 01/15/17 23:45:00 CDT, Stop date: 01/15/17 23:45:00 CDT No Longe r Active 01/16/2017 [facility] Sodium Chloride 0.154 MEQ/ML Injectable Solution 1,000 mL, 1,000 ml/hr, Infuse Over: 1 hr, Route: IV, ONCE, Priority: STAT, Dosing Weight 70.455 kg, Start date: 01/15/17 23:44:00 CDT, Duration: 1 doses or times, Stop date: 01/15/17 23:44:00 CDT No Longer Active 01/16/2017 [facility] Saline Flush 0.9% Notes: (Same as: BD Posiflush) No Longer Active 01/16/2017 [facility] pregabalin 150 mg oral capsule 150 mg = 1 cap, PO, BID, # 60 cap, 0 Refill(s) Active 01/04/2017 [facility] pantoprazole 40 mg oral enteric coated tablet 40 mg = 1 tab, PO, Before Dinner, # 90 tab, 0 Refill(s) Active 01/04/2017 [facility] Ondansetron 4 MG Disintegrating Tablet [Zofran] 4 mg = 1 tab, PO, BID, PRN Nausea and Vomiting, Dissolve tab under tongue, X 5 day, # 10 tab, 0 Refill(s) Active 01/04/2017 [facility] Folic Acid 1 MG Oral Tablet 1 mg = 1 tab, PO, Daily, # 30 tab, 0 Refill(s) Active 01/04/2017 [facility] ferrous sulfate 325 mg oral enteric coated tablet 325 mg = 1 tab, PO, Daily, # 30 tab, 0 Refill(s) Active 01/04/2017 [facility] nter Docusate Sodium 100 MG Oral Capsule 100 mg = 1 cap, PO, BID, PRN Constipation, # 20 cap, 0 Refill(s) Active 01/04/2017 [facility] nter carvedilol 6.25 mg oral tablet 6.25 mg = 1 tab, PO, BID, # 180 tab, 3 Refill(s) Active 01/04/2017 [facility] amitriptyline 50 mg oral tablet 50 mg = 1 tab, PO, Bedtime, # 14 tab, 0 Refill(s) Active 01/04/2017 [facility] nter tolterodine 4 mg oral capsule, extended release 4 mg = 1 cap, PO, Daily, # 30 cap, 0 Refill(s) Active 01/04/2017 [facility] nter tizanidine 4 mg oral capsule 4 mg = 1 cap, PO, TID, # 90 cap, 0 Refill(s) Active 01/04/2017 [facility] Amitriptyline Notes: (Same as: Elavil) No Longer Active 01/03/2017 [facility] Santyl Notes: (Same As: Santyl) No Longer Active 01/02/2017 [facility] pantoprazole Notes: Tablet miles uld not be chewed or crushed. (Same as: Protonix) N o Longer Active 01/02/2017 [facility] nt tolterodine 4 mg, Route: PO, D rug form: CAP, Daily, Dosing Weight 84.545, kg, Start date: 01/02/17 9:00:00 CDT, Duration: 30 day, Stop date: 01/31/17 9:00:00 CDT Inactive 01/02/2017 [facility] nter tizanidine Notes: (Same As: Za naflex) No Longer Active 01/02/2017 [facility] POLYETHYLENE GLYCOL 3350 Notes : Dissolve in 8 oz of water or juice. (Same as: Miralax) No Longer Active 01/02/2017 [facility] nter pregabalin Notes: (Same as: Ly steve) No Longer Active 01/02/2017 [facility] Folic Acid Notes: (Same as: Fo lvite) No Longer Active 01/02/2017 [facility] ferrous sulfate Notes: Give wi th food. "Do Not Crush" No Longer Active 01/02/2017 [facility] carvedilol Notes: Give with fo od. (Same As: Coreg) No Longer Active 01/02/2017 [facility] heparin Notes: porcine heparin No Longer Active 01/02/2017 [facility] Ditropan XL Notes: (Same as: D itropan XL) "Do Not Crush" No Longer Active 01/02/2017 [facility] Docusate Notes: (Same as: Cola ce) (Do Not Crush) No Longer Active 01/02/2017 [facility] Morphine Notes: (Same as:MORPh ine Sulfate) Inactive 01/02/2017 [facility] Ceftazidime Notes: Non-Formula ry Drug (Same as: Fortaz) MEDICATION WASTE Product Size: 1000 mg Product Wasted: 0 mg No Longer Active 01/02/2017 [facility] meropenem Notes: Same as Barak jamli MEDICATION WASTE Product Size: 500 mg Product Wasted: ___ mg Inactive 01/02/2017 [facility] nter Sodium Chloride 0.154 MEQ/ML Injectable Solution 1,000 mL, Rate: 100 ml/hr, Infuse over: 10 hr, Route: IV, Dosing Weight 72.727 kg, Total Volume: 1,000, Start date: 01/02/17 0:45:00 CDT, Stop date: 02/01/17 0:44:00 CDT No Longer Active 01/02/2017 [facility] Saline Flush 0.9% Notes: (Same as: BD Posiflush) No Longer Active 01/02/2017 [facility] Ondansetron Notes: (Same as: Kory davis) MEDICATION WASTE Product Size: 4 mg Product Wasted: 0 mg No Longer Active 01/02/2017 [facility] Acetaminophen 325 MG / Hydrocodone Micheal trate 5 MG Oral Tablet Notes: (Same as: [place] 325/5) Do not ex ceed 4gm/day of acetaminophen. No Longer Active 01/02/2017 [facility] Acetaminophen Notes: Do not ex ceed 4 gm/day. (Same as: Tylenol) No Longer Active 01/02/2017 [facility] Flagyl Notes: (Same as: Flagyl ) Take with food/ avoid alcohol No Longer Active 01/02/2017 [facility] cefepime Notes: (Same As: Franco guaman) MEDICATION WASTE Product Size: 1000 mg Product Wasted: 0 mg No Longer Active 01/02/2017 [facility] Vancomycin 2001 mg: infuse ov er 2.5 hours MEDICATION WASTE Product Size: 1000 mg Product Wasted: 0 mg No Longer Active 01/02/2017 [facility] carvedilol 6.25 mg oral tablet 6.25 mg = 1 tab, PO, BID, # 180 tab, 3 Refill(s) No Longer Active 01/02/2017 [facility] Ondansetron 4 MG Disintegrating Tablet [Zofran] 4 mg = 1 tab, PO, BID, PRN Nausea and Vomiting, Dissolve tab under tongue, X 5 day, # 10 tab, 0 Refill(s) No Longer Active 01/02/2017 [facility] carvedilol Notes: (Same As: Co reg) No Longer Active 01/02/2017 [facility] Sodium Chloride 0.154 MEQ/ML Injectable Solution 1,000 mL, 1000 ml/hr, Infuse Over: 1 hr, Route: IV, 1,000, Drug form: INJ, ONCE, Priority: STAT, Dosing Weight 72.727 kg, Start date: 01/01/17 20:48:00 CDT, Duration: 1 doses or times, Stop date: 01/01/17 20:48:00 CDT Inactive 01/02/2017 [facility] Ondansetron Notes: (Same as: Kory davis) MEDICATION WASTE Product Size: 4 mg Product Wasted: __0_ mg Inactive 01/02/2017 [facility] Hydromorphone Notes: Same as: Dilaudid Inactive 01/02/2017 [facility] Sodium Chloride 0.154 MEQ/ML Injectable Solution 1,000 mL, Infuse Over: 1 hr, Route: IV, ONCE, Priority: STAT, Dosing Weight 72.727 kg, Start date: 01/01/17 17:26:00 CDT, Duration: 1 doses or times, Stop date: 01/01/17 17:26:00 CDT Inactive 01/01/2017 [facility] Acetaminophen 325 MG / Oxycodone Hydroch loride 10 MG Oral Tablet [Percocet 10/325] See Instructions, 1 tab PO TID PRN PAIN, # 15 tab, 0 Refill(s), other Inactive 12/25/2016 [facility] Acetaminophen 325 MG / Hydrocodone Micheal trate 5 MG Oral Tablet [[place] 5/325] Notes: (Same as: [place] 325/5) Do not ex ceed 4gm/day of acetaminophen. Inactive 12/25/2016 [facility] Alprazolam 0.5 MG Oral Tablet 0.5 mg = 1 tab, PO, BID, PRN anxiety, stress, X 7 day, # 14 tab, 0 Refill(s) Active 12/25/2016 [facility] tolterodine 4 mg oral capsule, extended release 4 mg = 1 cap, PO, Daily, # 30 cap, 0 Refill(s) Active 12/25/2016 [facility] Magnesium Sulfate Notes: WASTE : F/P - Sink; E - Municipal Trash Bin Inactive 12/24/2016 [facility] Levi 24 gm packet Notes: (Corey e as: Levi Jessie) No Longer Active 12/23/2016 [facility] Ceftazidime Notes: Non-Formula ry Drug (Same as: Fortaz) MEDICATION WASTE Product Size: 1000 mg Product Wasted: ___ mg No Longer Active 12/23/2016 [facility] Dilaudid 1 mg, 1 mL, Route: IV P, Drug form: INJ, Q4H, Dosing Weight 75.545, kg, PRN Pain Score 7-10, Start date: 12/22/16 20:37:00 CDT, Stop date: 01/21/17 20:36:00 CDT No Longer Active 12/23/2016 [facility] Florinef Acetate Notes: (Same as: Florinef Acetate) Give with food. Inactive 12/22/2016 [facility] pregabalin Notes: Same as Lyri ca No Longer Active 12/22/2016 [facility] Dilaudid 0.5 mg, 0.5 mL, Route : IVP, Drug form: INJ, ONCE, Dosing Weight 75.545, kg, Start date: 12/21/16 20:34:00 CDT, Stop date: 12/21/16 20:34:00 CDT Inactive 12/22/2016 [facility] Maxipime + sodium chloride 0.9% INJ 100 mL 1 gm, Route: IVPB, [id number], Start date: 12/21/16 17:00:00 CDT, Duration: 30 day, Stop date: 01/20/17 5:00:00 CDT, ABX Indication: Urinary Tract Infection No Longer Active 12/21/2016 [facility] Insulin regular Notes: (Same a s: Humulin R and NovoLIN R) WASTE: F/P - Black; E - Municipal Trash Bin (Do not shake) Inactive 12/21/2016 [facility] d50 syringe 1 amp, Route: IV, Drug Form: INJ, Dosing Weight 75.545, kg, ONCE, Start date: 12/21/16 16:31:00 CDT, Stop date: 12/21/16 16:31:00 CDT Inactive 12/21/2016 [facility] Albuterol 0.417 MG/ML Inhalant Solution Notes: SEE RT DOCUMENTATION (Same as: Proventil) No Longer Active 12/21/2016 [facility] alteplase 2 mg injection Notes : "Syringe for catheter clearance or interventional radiology use. Reconstitute each vial of Cathflo Activase with 2.2 ml Sterile Water resulting in a 1 mg/ml solution. (Same as: Activase) MEDICATION WASTE Product Size: 2 mg Product Wasted: ___ mg Inactive 12/21/2016 [facility] Ceftazidime 2 gm, Route: IVPB, [id number], Dosing Weight 75.545, kg, Start date: 12/21/16 16:00:00 CDT, Duration: 30 day, Stop date: 01/20/17 4:00:00 CDT Inactive 12/21/2016 [facility] Florinef Acetate Notes: (Same as: Florinef Acetate) Give with food. Inactive 12/21/2016 [facility] Albuterol 0.83 MG/ML Inhalant Solution Notes: SEE RT DOCUMENTATION (Same as: Proventil) Inactive 12/21/2016 [facility] Dextrose 50% Syringe 25 gm, 50 mL, Route: IVP, Drug Form: INJ, Dosing Weight 75.545, kg, ONCE, Start date: 12/21/16 12:47:00 CDT, Stop date: 12/21/16 12:47:00 CDT Inactive 12/21/2016 [facility] Insulin regular Notes: (Same a s: NovoLIN R) WASTE: F/P - Black; E - Municipal Trash Bin (Do not shake) Inactive 12/21/2016 [facility] Calcium Gluconate Notes: WASTE : F/P - Sink; E - Municipal Trash Bin Inactive 12/21/2016 [facility] Coreg Notes: Give with food. ( Same As: Coreg) No Longer Active 12/21/2016 [facility] Magnesium Sulfate Notes: WASTE : F/P - Sink; E - Municipal Trash Bin Inactive 12/21/2016 [facility] Lasix Notes: (Same as: Lasix) MEDICATION WASTE Product Size: 40 mg Product Wasted: ___ mg Inactive 12/20/2016 [facility] Sodium Chloride 0.154 MEQ/ML Injectable Solution 1,000 mL, Rate: 100 ml/hr, Infuse over: 10 hr, Route: IV, Dosing Weight 75.545 kg, Total Volume: 1,000, Start date: 12/20/16 14:25:00 CDT, Stop date: 01/19/17 14:24:00 CDT No Longer Active 12/20/2016 [facility] RN-Do not give Vanc till trough drawn 12/20/16 @ 11:30 RN-Do not give Vanc till trough drawn 12/20/16 @ 11:30, Attn:RN, Drug form: MISC, Route: MISC, ONCE, 12/20/16 11:00:00 CDT, Stop date: 12/20/16 11:00:00 CDT Inactive 12/20/2016 [facility] Magnesium Sulfate Notes: WASTE : F/P - Sink; E - Municipal Trash Bin Inactive 12/20/2016 [facility] Albuterol 0.417 MG/ML Inhalant Solution Notes: SEE RT DOCUMENTATION (Same as: Proventil) Inactive 12/20/2016 [facility] Kayexalate Notes: (sodium poly styrene sulfonate 15 gm/60 ml SOLITARIO) Shake well before use. (Same as: Kayexalate, SPS) Inactive 12/20/2016 [facility] Morphine Notes: (Same as:MORPh ine Sulfate) No Longer Active 12/20/2016 [facility] Dilaudid 1 mg, 1 mL, Route: IV P, Drug form: INJ, ONCE, Dosing Weight 75.545, kg, Priority: STAT, Start date: 12/19/16 21:19:00 CDT, Stop date: 12/19/16 21:19:00 CDT Inactive 12/20/2016 [facility] carvedilol Notes: Give with fo od. (Same As: Coreg) No Longer Active 12/20/2016 [facility] Dilaudid Notes: (Same as: Dila udid) No Longer Active 12/19/2016 [facility] Cathflo Activase 2 mg injection Notes: "Syringe for catheter clearance or interventional radiology use. Reconstitute each vial of Cathflo Activase with 2.2 ml Sterile Water resulting in a 1 mg/ml solution. (Same as: Activase) MEDICATION WASTE Product Size: 2 mg Product Wasted: ___ mg No Longer Active 12/19/2016 [facility] Cathflo Activase 2 mg injection Notes: "Syringe for catheter clearance or interventional radiology use. Reconstitute each vial of Cathflo Activase with 2.2 ml Sterile Water resulting in a 1 mg/ml solution. (Same as: Activase) MEDICATION WASTE Product Size: 2 mg Product Wasted: ___ mg Inactive 12/19/2016 [facility] sodium chloride 0.9% 1000 ml INJ 1,000 mL 1,000 mL, Rate: 1,000 ml/hr, Infuse over: 1 hr, Route: IV, Dosing Weight 75.545 kg, Total Volume: 1,000, Start date: 12/18/16 17:13:00 CDT, Duration: 1 hr, Stop date: 12/18/16 18:12:00 CDT Inactive 12/18/2016 [facility] colistimethate + sodium chloride 0.9% INJ 100 mL Notes: (Same As: Coly-Mycin) No Longe r Active 12/18/2016 [facility] Enoxaparin Notes: (Same as: Lo venox) No Longer Active 12/18/2016 [facility] Magnesium Oxide Notes: (Same a s: Mag-Ox 400) Magnesium oxide [id number] elemental magnesium Dose=____mg magnesium oxide (___mg elemental magnesium) No Longer Active 12/18/2016 [facility] Kayexalate Notes: (sodium poly styrene sulfonate 15 gm/60 ml SOLITARIO) Shake well before use. (Same as: Kayexalate, SPS) Inactive 12/18/2016 [facility] colistimethate + sodium chloride 0.9% INJ 100 mL Notes: (Same As: Coly-Mycin) Inactive 12/18/2016 [facility] meropenem Notes: Same as Barak jamil MEDICATION WASTE Product Size: 500 mg Product Wasted: ___ mg No Longer Active 12/18/2016 [facility] [facility] Vancomycin 2001 mg: infuse ov er 2.5 hours MEDICATION WASTE Product Size: 1000 mg Product Wasted: ___ mg No Longer Active 12/18/2016 [facility] Sodium Chloride 0.154 MEQ/ML Injectable Solution 500 mL, 500 ml/hr, Infuse Over: 1 hr, Route: IV, ONCE, Priority: STAT, Dosing Weight 75.545 kg, Start date: 12/17/16 23:17:00 CDT, Duration: 1 doses or times, Stop date: 12/17/16 23:17:00 CDT Inactive 12/18/2016 [facility] NovoLIN R Notes: (Same as: Hum ulin R and NovoLIN R) WASTE: F/P - Black; E - Municipal Trash Bin (Do not shake) Inactive 12/17/2016 [facility] Insulin regular Notes: (Same a s: Humulin R and NovoLIN R) WASTE: F/P - Black; E - Municipal Trash Bin (Do not shake) Inactive 12/17/2016 [facility] d50 syringe 25 gm, 50 mL, Rout e: IV, Drug Form: INJ, Dosing Weight 75.545, kg, ONCE, Start date: 12/17/16 14:10:00 CDT, Stop date: 12/17/16 14:10:00 CDT Inactive 12/17/2016 [facility] Kayexalate Notes: (sodium poly styrene sulfonate 15 gm/60 ml SOLITARIO) Shake well before use. (Same as: Kayexalate, SPS) Inactive 12/17/2016 [facility] Albuterol 0.83 MG/ML Inhalant Solution Notes: SEE RT DOCUMENTATION (Same as: Proventil) Inactive 12/17/2016 [facility] Coreg Notes: Give with food. ( Same As: Coreg) Inactive 12/17/2016 [facility] Lasix Notes: (Same as: Lasix) MEDICATION WASTE Product Size: 40 mg Product Wasted: ___ mg Inactive 12/17/2016 [facility] Valium Notes: (Same as: Valium ) WASTE: F/P - Black; E - White/Blue Inactive 12/17/2016 [facility] Kayexalate Notes: (sodium poly styrene sulfonate 15 gm/60 ml SOLITARIO) Shake well before use. (Same as: RICK Desai) Inactive 12/17/2016 [facility] sodium bicarbonate 8.4% Notes: (sodium bicarb 8.4% (1 mEq/ml) 50 ml syringe) Inactiv e 12/17/2016 [facility] Albuterol 0.83 MG/ML Inhalant Solution Notes: SEE RT DOCUMENTATION (Same as: Proventil) Inactive 12/17/2016 [facility] Sodium polystyrene sulfonate N otes: (sodium polystyrene sulfonate 15 gm/60 ml SOLITARIO) Shake well before use. (Same as: RICK Desai) Inactive 12/17/2016 [facility] Magnesium Sulfate Notes: WASTE : F/P - Sink; E - Municipal Trash Bin Inactive 12/16/2016 [facility] Albuterol 0.83 MG/ML Inhalant Solution Notes: SEE RT DOCUMENTATION (Same as: Proventil) Inactive 12/16/2016 [facility] Insulin regular Notes: (Same a s: Humulin R and NovoLIN R) WASTE: F/P - Black; E - Municipal Trash Bin (Do not shake) Inactive 12/16/2016 [facility] Dextrose 50% Syringe 25 gm, 50 mL, Route: IVP, Drug Form: INJ, Dosing Weight 75.545, kg, ONCE, Start date: 12/16/16 15:27:00 CDT, Stop date: 12/16/16 15:27:00 CDT Inactive 12/16/2016 [facility] Calcium Gluconate Notes: WASTE : F/P - Sink; E - Municipal Trash Bin Inactive 12/16/2016 [facility] Sodium polystyrene sulfonate N otes: (sodium polystyrene sulfonate 15 gm/60 ml SOLITARIO) Shake well before use. (Same as: RICK Desai) Inactive 12/16/2016 [facility] Cathflo Activase 2 mg injection Notes: "Syringe for catheter clearance or interventional radiology use. Reconstitute each vial of Cathflo Activase with 2.2 ml Sterile Water resulting in a 1 mg/ml solution. (Same as: Activase) MEDICATION WASTE Product Size: 2 mg Product Wasted: ___ mg Inactive 12/16/2016 [facility] Albuterol 0.833 MG/ML / Ipratropium Brom laila 0.167 MG/ML Inhalant Solution [DuoNeb] Notes: (Same as: Duoneb) No Longer Active 12/15/2016 [facility] sodium phosphate + D5W 250 mL 30 mmol, 10 mL, Route: IVPB, ONCE, Dosing Weight 75.545, kg, Start date: 12/14/16 9:19:00 CDT, Stop date: 12/14/16 9:19:00 CDT Inactive 12/14/2016 [facility] Magnesium Sulfate Notes: WASTE : F/P - Sink; E - Municipal Trash Bin Inactive 12/14/2016 [facility] Tobramycin Notes: TIME CRITICA L MEDICATION (Same As: Nebcin) No Longer Active 12/13/2016 [facility] Dilaudid 1 mg, 1 mL, Route: IV P, Drug form: INJ, Q4H, Dosing Weight 75.545, kg, PRN Pain Score 7-10, Start date: 12/13/16 10:43:00 CDT, Duration: 30 day, Stop date: 01/12/17 10:42:00 CDT No Longer Active 12/13/2016 [facility] Magnesium Sulfate Notes: WASTE : F/P - Sink; E - Municipal Trash Bin Inactive 12/13/2016 [facility] "Restore" Hydrogel topical gel "Restore" Hydrogel topical gel, 1 appl, Drug form: MISC, Route: TOP, Daily, 12/13/16 9:00:00 CDT, Duration: 30 day, Stop date: 01/11/17 9:00:00 CDT No Longer Active 12/13/2016 [facility] Restore Hydrogel topical gel 1 appl, Route: TOP, Dosing Weight 75.545, kg, Daily, Start date: 12/13/16 9:00:00 CDT, Duration: 30 day, Stop date: 01/11/17 9:00:00 CDT No Longer Active 12/13/2016 [facility] Saline Flush 0.9% Notes: (Same as: BD Posiflush) No Longer Active 12/13/2016 [facility] Lidocaine Hydrochloride 10 MG/ML Injectable Solution Notes: (Same as: Xylocaine) No Longer Active 12/13/2016 [facility] Saline Flush 0.9% Notes: (Same as: BD Posiflush) No Longer Active 12/12/2016 [facility] sodium phosphate + D5W 240 mL 30 mmol, 10 mL, Route: IVPB, ONCE, Dosing Weight 75.545, kg, Start date: 12/12/16 9:18:00 CDT, Stop date: 12/12/16 9:18:00 CDT Inactive 12/12/2016 [facility] Magnesium Sulfate Notes: WASTE : F/P - Sink; E - Municipal Trash Bin Inactive 12/12/2016 [facility] Detrol LA Notes: Non-Formulary Do Not Crush. (Same As: Detrol LA) No Longer Active 12/12/2016 [facility] Hydralazine Notes: (Same as: A presoline) Push over 5 minutes No Longer Active 12/12/2016 [facility] Tobramycin Notes: TIME CRITICA L MEDICATION (Same As: Nebcin) No Longer Active 12/11/2016 [facility] Tobramycin 1 ea, Route: MISC, Dosing Weight 75.545, kg, ONCALL, Start date: 12/11/16 12:00:00 CDT, Duration: 1 doses or times, Pharmacy to dose Inactive 12/11/2016 [facility] Tylenol Notes: Do not exceed 4 gm/day. (Same as: Tylenol) No Longer Active 12/11/2016 [facility] Roxicodone Notes: (Same as: Ro xicodone) No Longer Active 12/11/2016 [facility] Acetaminophen 325 MG / Oxycodone Hydroch loride 10 MG Oral Tablet [Percocet 10/325] 1 tab, Route: PO, Drug Form: TAB, Dosing Weight 75.545, kg, Q4H, PRN Pain Score 4-6, Start date: 12/11/16 9:44:00 CDT, Duration: 30 day, Stop date: 01/10/17 9:43:00 CDT Inactive 12/11/2016 [facility] POLYETHYLENE GLYCOL 3350 Notes : Dissolve in 8 oz of water or juice. (Same as: Miralax) No Longer Active 12/11/2016 [facility] Folic Acid Notes: (Same as: Fo lvite) No Longer Active 12/11/2016 [facility] ferrous sulfate Notes: Give wi th food. "Do Not Crush" No Longer Active 12/11/2016 [facility] Santyl Notes: (Same As: Santyl) No Longer Active 12/11/2016 [facility] Lovenox Notes: (Same as: Loven ox) No Longer Active 12/11/2016 [facility] carvedilol Notes: Give with fo od. (Same As: Coreg) No Longer Active 12/11/2016 [facility] Amitriptyline Notes: (Same as: Elavil) No Longer Active 12/11/2016 [facility] pregabalin Notes: (Same as: Ly steve) No Longer Active 12/10/2016 [facility] 24 HR Metoprolol Tartrate 25 MG Extended Release Tablet [Toprol] Notes: (Same as: Toprol XL) Do Not Crush No Longer Active 12/10/2016 [facility] Alprazolam 2 MG Oral Tablet [Xanax] Notes: With food or milk (Same as: Xanax) No Longe r Active 12/10/2016 [facility] pantoprazole Notes: Tablet miles uld not be chewed or crushed. (Same as: Protonix) N o Longer Active 12/10/2016 [facility] Acetaminophen 325 MG / Hydrocodone Micheal trate 10 MG Oral Tablet [[place] 10/325] Notes: Do not exceed 4gm/day of acetamin ophen. (Same as: [place] 325/10) No Longer Active 12/10/2016 [facility] Dilaudid 1 mg, 1 mL, Route: IV P, Drug form: INJ, Q3H, Dosing Weight 75.545, kg, PRN Pain Score 7-10, Start date: 12/10/16 15:59:00 CDT, Duration: 30 day, Stop date: 01/09/17 15:58:00 CDT No Longer Active 12/10/2016 [facility] Amidate (ANES) Route: IV, Drug form: INJ, ONCE, Stop date: 12/10/16 13:03:00 CDT Inactive 12/10/2016 [facility] neostigmine (ANES) Route: IV, Drug form: INJ, ONCE, Stop date: 12/10/16 13:03:00 CDT Inactive 12/10/2016 [facility] glycopyrrolate (ANES) Route: I V, Drug form: INJ, ONCE, Stop date: 12/10/16 13:03:00 CDT Inactive 12/10/2016 [facility] tizanidine Notes: (Same As: Za naflex) No Longer Active 12/10/2016 [facility] ondansetron (ANES) Route: IV, Drug form: INJ, ONCE, Stop date: 12/10/16 12:51:00 CDT Inactive 12/10/2016 [facility] dexamethasone (ANES) Route: IV , Drug form: INJ, ONCE, Stop date: 12/10/16 12:51:00 CDT Inactive 12/10/2016 [facility] Acetaminophen 325 MG / Hydrocodone Micheal trate 10 MG Oral Tablet [[place] 10/325] Notes: Do not exceed 4gm/day of acetamin ophen. (Same as: [place] 325/10) Inactive 12/10/2016 [facility] Docusate Sodium 100 MG Oral Capsule Notes: (Same as: Colace) (Do Not Crush) No Longer Active 12/10/2016 [facility] esmolol (ANES) Route: IV, Drug form: INJ, ONCE, Stop date: 12/10/16 12:36:00 CDT Inactive 12/10/2016 [facility] rocuronium (ANES) Route: IV, D rug form: INJ, ONCE, Stop date: 12/10/16 12:31:00 CDT Inactive 12/10/2016 [facility] fentaNYL (ANES) Route: IV, Arden g form: INJ, ONCE, Stop date: 12/10/16 12:31:00 CDT Inactive 12/10/2016 [facility] propofol (ANES) Route: IV, Arden g form: INJ, ONCE, Stop date: 12/10/16 12:31:00 CDT Inactive 12/10/2016 [facility] lidocaine (ANES) Route: IV, Dr ug form: INJ, ONCE, Stop date: 12/10/16 12:31:00 CDT Inactive 12/10/2016 [facility] midazolam (ANES) Route: IV, Dr ug form: SOLN, ONCE, Stop date: 12/10/16 12:25:00 CDT Inactive 12/10/2016 [facility] Calcium Chloride 0.0014 MEQ/ML / Potassi um Chloride 0.004 MEQ/ML / Sodium Chloride 0.103 MEQ/ML / Sodium Lactate 0.028 MEQ/ML Injectable Solution 1,000 mL, Rate: 25 ml/hr, Infuse over: 4 0 hr, Route: IV, Dosing Weight 75.545 kg, Total Volume: 1,000, Start date: 12/10/16 11:43:00 CDT, Duration: 30 day, Stop date: 01/09/17 11:42:00 CDT Inactive 12/10/2016 [facility] Sodium Chloride 0.154 MEQ/ML Injectable Solution 1,000 mL, Rate: 40 ml/hr, Infuse over: 25 hr, Route: IV, Dosing Weight 75.545 kg, Total Volume: 1,000, Start date: 12/10/16 11:43:00 CDT, Duration: 30 day, Stop date: 01/09/17 11:42:00 CDT Inactive 12/10/2016 [facility] sodium chloride 0.9% 1000 ml INJ (ANES) Route: IV, Total Volume: 1,000, Start date: 12/10/16 11:00:00 CDT, Stop date: 12/10/16 12:00:00 CDT Inactive 12/10/2016 [facility] Pepcid 20 mg, Route: IVP, ONCE , Dosing Weight 75.545, kg, Start date: 12/10/16 10:58:00 CDT, Stop date: 12/10/16 10:58:00 CDT Inactive 12/10/2016 [facility] Zofran 4 mg, Route: IVP, ONCE, Dosing Weight 75.545, kg, Start date: 12/10/16 10:58:00 CDT, Stop date: 12/10/16 10:58:00 CDT Inactive 12/10/2016 [facility] sodium chloride 0.9% 50 ml INJ (ANES) + meropenem (ANES) (ANES) Route: IV, Drug form: INJ, Start date: 0 12/10/16 10:45:00 CDT, Stop date: 12/10/16 11:45:00 CDT Inactive 12/10/2016 [facility] Magnesium Sulfate Notes: WASTE : F/P - Sink; E - Municipal Trash Bin Inactive 12/10/2016 [facility] Wendyien Notes: (Same As: Ambien) No Longer Active 12/10/2016 [facility] Beneprotein 7 gm pkt Notes: (S marva as: Beneprotein) No Longer Active 12/09/2016 [facility] Levi 24 gm packet Notes: (Corey e as: Levi Jessie) No Longer Active 12/09/2016 [facility] Gentamicin Sulfate (FDC) Notes : TIME CRITICAL MEDICATION (Same as Garamycin) Inactive 12/09/2016 [facility] Vancomycin 2001 mg: infuse ov er 2.5 hours MEDICATION WASTE Product Size: 1000 mg Product Wasted: ___ mg Inactive 12/09/2016 [facility] metoprolol tartrate 25 mg oral tablet 25 mg = 1 tab, PO, BID, # 60 tab, 0 Refill(s) No Longer Active 12/09/2016 [facility] Acetaminophen 325 MG / Hydrocodone Micheal trate 10 MG Oral Tablet [[place] 10/325] 1 tab, PO, Q6H, PRN for pain, # 24 tab, 0 Refill(s) Active 12/09/2016 [facility] gentamicin + sodium chloride 0.9% INJ 100 mL Notes: TIME CRITICAL MEDICATION (Same as Garamycin) Inactive 12/09/2016 [facility] Gentamicin Sulfate (FDC) 1 ea, Route: MISC, Dosing Weight 72.727, kg, ONCALL, Start date: 12/09/16 1:00:00 CDT, Duration: 1 doses or times, Pharmacy to dose Inactive 12/09/2016 [facility] meropenem Notes: Same as Barak jamil MEDICATION WASTE Product Size: 500 mg Product Wasted: _0__ mg No Longer Active 12/09/2016 [facility] Enoxaparin Notes: (Same as: Lo venox) No Longer Active 12/09/2016 [facility] Saline Flush 0.9% Notes: (Same as: BD Posiflush) No Longer Active 12/09/2016 [facility] Sodium Chloride 0.154 MEQ/ML Injectable Solution 1,000 mL, Rate: 150 ml/hr, Infuse over: 6.7 hr, Route: IV, Dosing Weight 72.727 kg, Total Volume: 1,000, Start date: 12/09/16 0:56:00 CDT, Duration: 30 day, Stop date: 01/08/17 0:55:00 CDT No Longer Active 12/09/2016 [facility] Acetaminophen Notes: Do not ex ceed 4 gm/day. (Same as: Tylenol) No Longer Active 12/09/2016 [facility] Morphine Notes: (Same as:MORPh ine Sulfate) No Longer Active 12/09/2016 [facility] Ondansetron Notes: (Same as: Kory davis) MEDICATION WASTE Product Size: 4 mg Product Wasted: ___ mg No Longer Active 12/09/2016 [facility] meropenem Notes: (Same as: Sandy rem) . MEDICATION WASTE Product Size: 1000 mg Product Wasted: ___ mg No Longer Active 12/09/2016 [facility] Acetaminophen 325 MG / Hydrocodone Micheal trate 10 MG Oral Tablet 1 tab, Route: PO, Drug Form: TAB, Dosing Weight 72.727, kg, ONCE, STAT, Start date: 12/08/16 23:01:00 CDT, Stop date: 12/08/16 23:01:00 CDT Inactive 12/09/2016 [facility] Zofran 4 mg, Route: IVP, Drug form: INJ, ONCE, Dosing Weight 72.727, kg, Priority: STAT, Start date: 12/08/16 22:09:00 CDT, Stop date: 12/08/16 22:09:00 CDT Inactive 12/09/2016 [facility] Sodium Chloride 0.154 MEQ/ML Injectable Solution 2,000 mL, 2000 ml/hr, Infuse Over: 1 hr, Route: IV, 2,000, Drug form: INJ, ONCE, Priority: STAT, Dosing Weight 72.727 kg, Start date: 12/08/16 21:25:00 CDT, Duration: 1 doses or times, Stop date: 12/08/16 21:25:00 CDT Inactive 12/09/2016 [facility] Rocephin Notes: (Same As: Yandy andraden). Use with 100 mL NS and infuse over 30 min MEDICATION WASTE Product Size: 1000 mg Product Wasted: ___ mg Inactive 12/09/2016 [facility] Acetaminophen Notes: Do not ex ceed 4 gm/day. (Same as: Tylenol) Inactive 12/09/2016 [facility] Saline Flush 0.9% Notes: (Same as: BD Posiflush) No Longer Active 12/09/2016 [facility] POLYETHYLENE GLYCOL 3350 PO, D aily, 0 Refill(s) Active 11/28/2016 [facility] ciprofloxacin 250 mg oral tablet 250 mg = 1 tab, PO, [id number], X 1 day, # 2 tab, 0 Refill(s) No Longer Active 11/28/2016 [facility] nter carvedilol 6.25 mg oral tablet 6.25 mg = 1 tab, PO, Q12H, 0 Refill(s) Active 11/28/2016 [facility] vancomycin 250 mg/5 mL oral solution 125 mg = 2.5 mL, PO, ABXQ6H, X 2 day, # 20 mL, 0 Refill(s) No Longer Active 11/28/2016 [facility] nter Magnesium Oxide Notes: (Same a s: Mag-Ox 400) Magnesium oxide [id number] elemental magnesium Dose= 800 mg magnesium oxide ( 484 mg elemental magnesium) Inactive 11/28/2016 [facility] Kayexalate Notes: (sodium poly styrene sulfonate 15 gm/60 ml SOLITARIO) Shake well before use. (Same as: Jiexalate, SPS) Inactive 11/27/2016 [facility] sodium chloride 0.9% 1000 ml INJ 1,000 mL 1,000 mL, Rate: 50 ml/hr, Infuse over: 20 hr, Route: IV, Dosing Weight 70.455 kg, Total Volume: 1,000, Start date: 11/27/16 15:49:00 CDT, Duration: 30 day, Stop date: 12/27/16 15:48:00 CDT No Longe r Active 11/27/2016 [facility] nter Vitamin C Notes: (Same as: Vit ayala C) No Longer Active 11/27/2016 [facility] Vitamin B12 Notes: (Same As: V itamin B-12) No Longer Active 11/27/2016 [facility] Miralax Notes: Dissolve in 8 o z of water or juice. (Same as: Miralax) No Longer Active 11/27/2016 [facility] Kayexalate Notes: (sodium poly styrene sulfonate 15 gm/60 ml SOLITARIO) Shake well before use. (Same as: Jiexalate, SPS) Inactive 11/27/2016 [facility] Sodium Chloride 0.154 MEQ/ML Injectable Solution 500 mL, 500 ml/hr, Infuse Over: 1 hr, Route: IV, 500, Drug form: INJ, ONCE, Dosing Weight 70.455 kg, Start date: 11/27/16 10:12:00 CDT, Stop date: 11/27/16 10:12:00 CDT Inactive 11/27/2016 [facility] carvedilol Notes: Give with fo od. (Same As: Coreg) No Longer Active 11/25/2016 [facility] Sodium Chloride 0.154 MEQ/ML Injectable Solution 1,000 mL, Rate: 100 ml/hr, Infuse over: 10 hr, Route: IV, Dosing Weight 70.455 kg, Total Volume: 1,000, Start date: 11/24/16 11:22:00 CDT, Duration: 30 day, Stop date: 12/24/16 11:21:00 CDT Inactive 11/24/2016 [facility] nter Sodium Chloride 0.154 MEQ/ML Injectable Solution 1,000 mL, Rate: 80 ml/hr, Infuse over: 12.5 hr, Route: IV, Dosing Weight 70.455 kg, Total Volume: 1,000, Start date: 11/23/16 9:51:00 CDT, Duration: 30 day, Stop date: 12/23/16 9:50:00 CDT No Longer Active 11/23/2016 [facility] nter Kayexalate Notes: (sodium poly styrene sulfonate 15 gm/60 ml SOLITARIO) Shake well before use. (Same as: Kayexalate, SPS) Inactive 11/22/2016 [facility] Sodium Chloride 0.154 MEQ/ML Injectable Solution 1,000 mL, Rate: 125 ml/hr, Infuse over: 8 hr, Route: IV, Dosing Weight 70.455 kg, Total Volume: 1,000, Start date: 11/21/16 18:37:00 CDT, Duration: 30 day, Stop date: 12/21/16 18:36:00 CDT No Longer Active 11/21/2016 [facility] nter Lasix Notes: (Same as: Lasix) Inactive 11/21/2016 [facility] metoprolol extended release No tru: (Same as: Toprol XL) Do Not Crush No Longer Active 11/21/2016 [facility] Lisinopril Notes: (Same as: Pr inivil, Zestril) Inactive 11/21/2016 [facility] Kayexalate Notes: (sodium poly styrene sulfonate 15 gm/60 ml SOLITARIO) Shake well before use. (Same as: Kayexalate, SPS) Inactive 11/21/2016 [facility] Calcium Gluconate Notes: WASTE : F/P - Sink; E - Municipal Trash Bin Inactive 11/21/2016 [facility] Sodium Chloride 0.154 MEQ/ML Injectable Solution 1,000 mL, Rate: 100 ml/hr, Infuse over: 10 hr, Route: IV, Dosing Weight 70.455 kg, Total Volume: 1,000, Start date: 11/21/16 7:24:00 CDT, Duration: 30 day, Stop date: 12/21/16 7:23:00 CDT Inactive 11/21/2016 [facility] nt Vancomycin 125 mg, Route: PO, Drug form: CAP, ABXQ6H, Dosing Weight 70.455, kg, Start date: 11/20/16 15:00:00 CDT, Duration: 30 day, Stop date: 12/20/16 9:00:00 CDT Inactive 11/20/2016 [facility] nter Avycaz + sodium chloride 0.9% INJ 100 mL Notes: (Same as: Avycaz) Non-formulary No Longer Active 11/20/2016 [facility] nter sodium chloride 0.9% 1000 ml INJ 1,000 mL 1,000 mL, Rate: 75 ml/hr, Infuse over: 13.3 hr, Route: IV, Dosing Weight 70.455 kg, Total Volume: 1,000, Start date: 11/19/16 10:15:00 CDT, Duration: 1 day, Stop date: 11/20/16 10:14:00 CDT No Longe r Active 11/19/2016 [facility] nter Magnesium Sulfate 2 gm, Route: IVPB, Drug form: INJ, Q2H, Dosing Weight 70.455, kg, Total dose = 2 gm, Start date: 11/18/16 20:00:00 CDT, Duration: 2 doses or times, Stop date: 11/18/16 22:00:00 CDT Inactive 11/19/2016 [facility] Vancomycin Notes: TIME CRITICA L MEDICATION Concentration = 50 mg/ml. Keep in refrigerator. For oral use only. Vancomycin 1gm vial are used and reconstituted with 20ml of sterile water for a concentration of 50m g/ml. Draw up in ken po syringes. DO NOT USE IV SYRINGES. No Longer Active 11/18/2016 [facility] Magnesium Sulfate Notes: WASTE : F/P - Sink; E - Municipal Trash Bin Inactive 11/18/2016 [facility] sodium chloride 0.9% 1000 ml INJ 1,000 mL 1,000 mL, Rate: 75 ml/hr, Infuse over: 13.3 hr, Route: IV, Dosing Weight 70.455 kg, Total Volume: 1,000, Start date: 11/18/16 7:19:00 CDT, Duration: 30 day, Stop date: 12/18/16 7:18:00 CDT No Longer Active 11/18/2016 [facility] nter Zinc Oxide 0.2 MG/MG Topical Ointment Route: TOP, Daily, Drug form: OINT, Start date: 11/17/16 9:00:00 CDT, Duration: 30 day, Stop date: 12/16/16 9:00:00 CDT No Longer Active 11/17/2016 [facility] nter Robaxin Notes: (Same as:Robaxi n) No Longer Active 11/16/2016 [facility] doxycycline Notes: NO MILK/ANT ACIDS/IRON Take 1 hour before or 2 hours after dairy products No Longer Active 11/16/2016 [facility] nter Doxycycline Notes: NO MILK/ANT ACIDS/IRON Take 1 hour before or 2 hours after dairy products Inactive 11/16/2016 [facility] nter Ciprofloxacin Notes: May inter fere w/enteral feedings - Take 1 hr before or 2 hrs after antacids, dairy pdt & minerals. On empty stomach. No Longer Active 11/16/2016 [facility] Alprazolam 1 MG Oral Tablet [Xanax] Notes: With food or milk (Same as: Xanax) No Longe r Active 11/15/2016 [facility] nter Midazolam Notes: Same as: Vers ed Inactive 11/15/2016 [facility] Ondansetron Notes: (Same as: Kory davis) MEDICATION WASTE Product Size: 4 mg Product Wasted: ___ mg Inactive 11/15/2016 [facility] Amitriptyline 100 mg, 2 tab, R oute: PO, Drug form: TAB, Bedtime, Dosing Weight 70.455, kg, Start date: 11/14/16 21:00:00 CDT, Stop date: 12/13/16 21:00:00 CDT No Longer Active 11/15/2016 [facility] nter Tetrahydrocannabinol Notes: (S marva as: Marinol) Non- Formulary Drug. No Longer Active 11/14/2016 [facility] nter Dakins Solution 0.5% topical 1 appl, Route: TOP, Daily, Drug form: SOLN, Start date: 11/14/16 9:00:00 CDT, Duration: 30 day, Stop date: 12/13/16 9:00:00 CDT No Longer Active 11/14/2016 [facility] nter Acetaminophen 325 MG / Hydrocodone Micheal trate 10 MG Oral Tablet [[place] 10/325] Notes: Do not exceed 4gm/day of acetamin ophen. (Same as: [place] 325/10) No Longer Active 11/13/2016 [facility] Melatonin 3 MG Extended Release Tablet Notes: (Same as: Melatonin) No Longer Active 11/13/2016 [facility] Avycaz + sodium chloride 0.9% INJ 100 mL Notes: (Same as: Avycaz) Non-formulary No Longer Active 11/13/2016 [facility] nter DAPTOmycin + sodium chloride 0.9% INJ 100 mL Notes: (Same As: Cubicin) Restricted use to Infectious Disease Physicians. MEDICATION WASTE Product Size: 500 mg Product Wasted: ___ mg No Longer Active 11/13/2016 [facility] Metronidazole Notes: (Same as: Flagyl) Take with food/ avoid alcohol No Longer Active 11/13/2016 [facility] Avycaz Notes: (Same as: Avycaz ) Non-formulary No Longer Active 11/13/2016 [facility] Daptomycin Notes: (Same As: Cu bicin) Restricted use to Infectious Disease Physicians. MEDICATION WASTE Product Size: 500 mg Product Wasted: ___ mg Inactive 11/13/2016 [facility] nter Acetaminophen 325 MG / Hydrocodone Micheal trate 7.5 MG Oral Tablet [[place] 7.5/325] Notes: Same as [place] 325-7.5mg Do not exceed 4gm/day of acetaminophen. No Longer Active 11/12/2016 [facility] nter Sertraline Notes: (Same as: Fanta loft) No Longer Active 11/12/2016 [facility] cefepime Notes: (Same as: Franco guaman) MEDICATION WASTE Product Size: 2000 mg Product Wasted: ___ mg No Longer Active 11/12/2016 [facility] Fosfomycin Notes: (Same as: Boo faye) mix w/ 90 to 120 ml (3 to 4 ounces) of water and stir to dissolve. Do not use hot water. Take immediately after dissolving in water. Inactive 11/11/2016 [facility] nter Fentanyl Route: IV, ONCE, Alia khan Weight 70.455, kg, Start date: 11/11/16 15:10:00 CDT, Stop date: 11/11/16 15:10:00 CDT Inactive 11/11/2016 [facility] Miralax Notes: Dissolve in 8 o z of water or juice. (Same as: Miralax) No Longer Active 11/10/2016 [facility] Lexapro Notes: (Same as: Lexap ro) No Longer Active 11/10/2016 [facility] Acetaminophen 325 MG / Hydrocodone Micheal trate 5 MG Oral Tablet [[place] 5/325] Notes: (Same as: [place] 325/5) Do not ex ceed 4gm/day of acetaminophen. No Longer Activ e 11/10/2016 [facility] Vancomycin Notes: TIME CRITICA L MEDICATION (Same As: Vancocin) No Longer Active 11/10/2016 [facility] Amitriptyline Notes: (Same as: Elavil) No Longer Active 11/10/2016 [facility] Saline Flush 0.9% Notes: (Same as: BD Posiflush) No Longer Active 11/09/2016 [facility] Lidocaine Hydrochloride 10 MG/ML Injectable Solution Notes: (Same as: Xylocaine) No Longer Active 11/09/2016 [facility] nter Saline Flush 0.9% Notes: (Same as: BD Posiflush) No Longer Active 11/09/2016 [facility] Celexa Notes: (Same As: CeleXA) No Longer Active 11/09/2016 [facility] Levsin SL Notes: (Same as: Lev sin) Take 30 min before meal No Longer Active 11/09/2016 [facility] sodium chloride 0.9% INJ 250 mL 250 mL, Rate: solid propellant processor for use with blood product administration, Dosing Weight 70.455, kg, Route: IV, Total Volume: 250, Start Date: 11/09/16 10:39:00 CDT, Duration: 1 day, Stop date: 11/10/16 10:38:00 CDT, Replace Every: 24 hr No Longer Active 11/09/2016 [facility] Magnesium Sulfate Notes: WASTE : F/P - Sink; E - Municipal Trash Bin Inactive 11/09/2016 [facility] Lidocaine Hydrochloride 10 MG/ML Injectable Solution Notes: (Same as: Xylocaine) No Longer Active 11/09/2016 [facility] nter Saline Flush 0.9% Notes: (Same as: BD Posiflush) No Longer Active 11/09/2016 [facility] Ativan Notes: (Same as: Ativan) No Longer Active 11/08/2016 [facility] pantoprazole Notes: Tablet miles uld not be chewed or crushed. (Same as: Protonix) N o Longer Active 11/08/2016 [facility] nter meropenem Notes: Same as Barak jamil MEDICATION WASTE Product Size: 500 mg Product Wasted: ___ mg No Longer Active 11/08/2016 [facility] Magnesium Sulfate Notes: WASTE : F/P - Sink; E - Municipal Trash Bin Inactive 11/08/2016 [facility] Ditropan XL 10 mg, 2 tab, Rout e: PO, Drug form: ERTAB, Daily, Start date: 11/08/16 9:00:00 CDT, Stop date: 12/07/16 9:00:00 CDT No Longer Active 11/08/2016 [facility] tolterodine 4 mg, Route: PO, D rug form: CAP, Daily, Dosing Weight 70.455, kg, Start date: 11/08/16 9:00:00 CDT, Duration: 30 day, Stop date: 12/07/16 9:00:00 CDT No Longer Active 11/08/2016 [facility] nter tizanidine Notes: (Same As: Za naflex) No Longer Active 11/08/2016 [facility] pregabalin Notes: (Same as: Ly steve) No Longer Active 11/08/2016 [facility] Folic Acid Notes: (Same as: Fo lvite) No Longer Active 11/08/2016 [facility] ferrous sulfate Notes: Give wi th food. "Do Not Crush" No Longer Active 11/08/2016 [facility] Santyl Notes: (Same As: Santyl) No Longer Active 11/08/2016 [facility] Alprazolam 2 MG Oral Tablet [Xanax] Notes: With food or milk (Same as: Xanax) Inactive 11/08/2016 [facility] vancomycin + sodium chloride 0.9% 250 mL INJ (for IV set) 250 mL 2001 mg: infuse over 2.5 hours ME DICATION WASTE Product Size: 1000 mg Product Wasted: ___ mg No Longer Active 11/08/2016 [facility] nter meropenem Notes: Same as Barak jamil MEDICATION WASTE Product Size: 500 mg Product Wasted: ___ mg Inactive 11/08/2016 [facility] nter Dilaudid Notes: Same as: Dilau did No Longer Active 11/08/2016 [facility] Sodium Chloride 0.154 MEQ/ML Injectable Solution 1,000 mL, 1,000 ml/hr, Infuse Over: 1 hr, Route: IV, 1,000, Drug form: INJ, ONCE, Priority: STAT, Dosing Weight 70.455 kg, Start date: 11/07/16 21:57:00 CDT, Duration: 1 doses or times, Stop date: 11/07/16 21:57:00 CDT Inactive 11/08/2016 [facility] metoprolol tartrate 25 mg, 1 t ab, Route: PO, Drug form: TAB, Q12H, Dosing Weight 70.455, kg, Start date: 11/07/16 21:00:00 CDT, Duration: 30 day, Stop date: 12/07/16 9:00:00 CDT No Longer Active 11/08/2016 [facility] Amitriptyline 50 mg, 2 tab, Ro [place]: PO, Drug form: TAB, Bedtime, Dosing Weight 70.455, kg, Start date: 11/07/16 21:00:00 CDT, Duration: 30 day, Stop date: 12/06/16 21:00:00 CDT No Longer Active 11/08/2016 [facility] nter BD Normal Saline Flush Notes: (Same as: BD Posiflush) No Longer Active 11/08/2016 [facility] Lovenox Notes: (Same as: Loven ox) No Longer Active 11/08/2016 [facility] meropenem = 50ml/min, Extende d infusion, infuse over 3 hours, Start date: 11/07/16 20:00:00 CDT, Duration: 30 day, Stop date: 12/07/16 14:00:00 CDT Inactive 11/08/2016 [facility] Docusate Sodium 100 MG Oral Capsule Notes: (Same as: Colace) (Do Not Crush) No Longer Active 11/08/2016 [facility] nter Acetaminophen 300 MG / Codeine Phosphate 30 MG Oral Tablet [Tylenol with Codeine #3] Notes: Do not exceed 4gm/day of acetamin ophen. (Same as: Tylenol with Codeine # 3) No Longer Active 11/08/2016 [facility] nter sodium chloride 0.9% 1000 ml INJ 1,000 mL 1,000 mL, Rate: 100 ml/hr, Infuse over: 10 hr, Route: IV, Dosing Weight 70.455 kg, Total Volume: 1,000, Start date: 11/07/16 19:50:00 CDT, Duration: 30 day, Stop date: 12/07/16 19:49:00 CDT No Longe r Active 11/08/2016 [facility] nter Docusate 100 mg, Route: PO, BI D, Dosing Weight 70.455, kg, PRN Constipation, Start date: 11/07/16 19:36:00 CDT, Duration: 30 day, Stop date: 12/07/16 19:35:00 CDT Inactive 11/08/2016 [facility] nter Ondansetron Notes: (Same as: Kory davis) MEDICATION WASTE Product Size: 4 mg Product Wasted: ___ mg No Longer Active 11/08/2016 [facility] Morphine Notes: (Same as:MORPh ine Sulfate) No Longer Active 11/08/2016 [facility] Acetaminophen Notes: Do not ex ceed 4 gm/day. (Same as: Tylenol) No Longer Active 11/08/2016 [facility] Hydromorphone 0.5 mg, Route: I 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, ONCE, Dosing Weight 70.455, kg, Priority: STAT, Start date: 11/07/16 18:48:00 CDT, Stop date: 11/07/16 18:48:00 CDT Inactive 11/07/2016 [facility] metoprolol tartrate 25 mg, Rou te: PO, Drug form: TAB, ONCE, Dosing Weight 70.455, kg, Start date: 11/07/16 18:10:00 CDT, Stop date: 11/07/16 18:10:00 CDT Inactive 11/07/2016 [facility] iodixanol 86 mL, Route: IVP, D rug Form: SOLN, Dosing Weight 70.455, kg, ONCALL, STAT, Start date: 11/07/16 15:59:00 CDT, Duration: 1 doses or times, Dose = 2.2ml/kg, Max dose = 100ml -- "To be infused by Radi ology Staff ONLY" Inactive 11/07/2016 [facility] Diphenhydramine Notes: (Same a s: Benadryl) Inactive 11/07/2016 [facility] Ondansetron 4 mg, Route: IVP, Drug form: INJ, ONCE, Dosing Weight 70.455, kg, Priority: STAT, Start date: 11/07/16 15:26:00 CDT, Stop date: 11/07/16 15:26:00 CDT Inactive 11/07/2016 [facility] nter Morphine 4 mg, Route: IVP, ONC E, Dosing Weight 70.455, kg, Priority: STAT, Start date: 11/07/16 15:26:00 CDT, Stop date: 11/07/16 15:26:00 CDT Inactive 11/07/2016 [facility] Fluconazole Notes: (Same as: D iflucan) Inactive 11/07/2016 [facility] Acetaminophen 650 mg, 2 tab, R oute: PO, Drug form: TAB, ONCE, Dosing Weight 70.455, kg, Priority: STAT, Start date: 11/07/16 14:40:00 CDT, Stop date: 11/07/16 14:40:00 CDT Inactive 11/07/2016 [facility] nter Vancomycin 2001 mg: infuse ov er 2.5 hours MEDICATION WASTE Product Size: 1000 mg Product Wasted: _0__ mg Inactive 11/07/2016 [facility] meropenem 1,000 mg, Route: IVP B, Drug form: PDR/INJ, ONCE, Dosing Weight 70.455, kg, Priority: STAT, Start date: 11/07/16 14:39:00 CDT, Stop date: 11/07/16 14:39:00 CDT Inactive 11/07/2016 [facility] Saline Flush 0.9% Notes: (Same as: BD Posiflush) No Longer Active 11/07/2016 [facility] Sodium Chloride 0.154 MEQ/ML Injectable Solution 2,000 mL, 1000 ml/hr, Infuse Over: 2 hr, Route: IVPB, 2,000, Drug form: INJ, ONCE, Priority: STAT, Dosing Weight 70.455 kg, Start date: 11/07/16 14:34:00 CDT, Duration: 1 doses or times, Stop date: 11/07/16 14:34:00 CDT Inactive 11/07/2016 [facility] Acetaminophen 300 MG / Codeine Phosphate 30 MG Oral Tablet [Tylenol with Codeine #3] 1 tab, PO, Q6H, PRN Pain, X 3 day, # 12 tab, 0 Refill(s) Active 11/05/2016 [facility] Ondansetron 4 MG Disintegrating Tablet [Zofran] 4 mg = 1 tab, PO, TID, Dissolve tab under tongue, X 2 day, # 6 tab, 0 Refill(s) Active 11/05/2016 [facility] Zofran ODT Notes: (Same as: Zo mayi ODT) Inactive 11/05/2016 [facility] Acetaminophen 300 MG / Codeine Phosphate 30 MG Oral Tablet [Tylenol with Codeine #3] Notes: Do not exceed 4gm/day of acetamin ophen. (Same as: Tylenol with Codeine # 3) Inactive 11/05/2016 [facility] Acetaminophen 325 MG / Hydrocodone Micheal trate 5 MG Oral Tablet [[place] 5/325] 1 tab, PO, Q6H, PRN Pain Score 6-10, X 3 day, # 10 tab, 0 Refill(s), other Active 10/25/2016 [facility] Calcium Gluconate Notes: WASTE : F/P - Sink; E - Municipal Trash Bin Inactive 10/25/2016 [facility] Acetaminophen 325 MG / Hydrocodone Micheal trate 5 MG Oral Tablet [[place] 5/325] Notes: (Same as: [place] 325/5) Do not ex ceed 4gm/day of acetaminophen. No Longer Activ e 10/24/2016 [facility] tramadol hydrochloride 50 MG Oral Tablet 1 tab, Route: PO, Drug form: TAB, Q6H, Dosing Weight 70.455, kg, PRN Pain Score 4-6, Start date: 10/24/16 18:48:00 CDT, Duration: 30 day, Stop date: 11/23/16 18:47:00 CDT Inactive 10/24/2016 [facility] Kayexalate Notes: (sodium poly styrene sulfonate 15 gm/60 ml SOLITARIO) Shake well before use. (Same as: Kayexalate, SPS) Inactive 10/24/2016 [facility] Calcium Gluconate Notes: WASTE : F/P - Sink; E - Municipal Trash Bin Inactive 10/24/2016 [facility] Folic Acid Notes: (Same as: Fo lvite) No Longer Active 10/24/2016 [facility] ferrous sulfate Notes: Give wi th food. iron elemental [id number] as ferrous sulfate Dose=___mg elemental iron No Longer Active 10/24/2016 [facility] Santyl Notes: (Same As: Santyl) No Longer Active 10/24/2016 [facility] metoprolol tartrate Notes: (Sa me as: Lopressor) No Longer Active 10/24/2016 [facility] tizanidine Notes: (Same As: Za naflex) No Longer Active 10/23/2016 [facility] Alprazolam 2 MG Oral Tablet [Xanax] Notes: With food or milk (Same as: Xanax) No Longe r Active 10/23/2016 [facility] pantoprazole Notes: Tablet miles uld not be chewed or crushed. (Same as: Protonix) N o Longer Active 10/23/2016 [facility] heparin Notes: porcine heparin No Longer Active 10/23/2016 [facility] Docusate Sodium 100 MG Oral Capsule Notes: (Same as: Colace) (Do Not Crush) No Longer Active 10/23/2016 [facility] sodium chloride 0.9% 1000 ml INJ 1,000 mL 1,000 mL, Rate: 125 ml/hr, Infuse over: 8 hr, Route: IV, Dosing Weight 70.455 kg, Total Volume: 1,000, Start date: 10/23/16 8:42:00 CDT, Duration: 30 day, Stop date: 11/22/16 8:41:00 CDT No Longer Active 10/23/2016 [facility] Diphenhydramine Notes: (Same a s: Benadryl) No Longer Active 10/23/2016 [facility] Tessalon Perles Notes: (Same A s: Tessalon Perles) "Do Not Crush" No Longer Active 10/23/2016 [facility] Acetaminophen Notes: Do not ex ceed 4 gm/day. (Same as: Tylenol) No Longer Active 10/23/2016 [facility] Ondansetron Notes: (Same as: Kory davis) MEDICATION WASTE Product Size: 4 mg Product Wasted: ___ mg No Longer Active 10/23/2016 [facility] Milk of Magnesia Notes: (Same as: Milk of Magnesia, MOM) No Longer Active 10/23/2016 [facility] meropenem 500 mg intravenous injection See Instructions, 500 mg IV Q6H 17 day, # 68 ea, 0 Refill(s) Active 10/03/2016 [facility] vancomycin 1 g intravenous injection 1 gm, IV, Q12H, X 17 day, # 34 ea, 0 Refill(s) Active 10/03/2016 [facility] metoprolol tartrate 25 mg oral tablet 25 mg = 1 tab, PO, Q12H, 0 Refill(s) Active 10/03/2016 [facility] oxyCODONE 30 mg oral tablet 30 mg = 1 tab, PO, Q6H, PRN Pain, X 7 day, # 28 tab, 0 Refill(s) Active 10/03/2016 [facility] Hydromorphone Hydrochloride 8 MG Oral Tablet [Dilaudid ] 8 mg = 1 tab, PO, Q8H, PRN Pain, X 7 day, # 21 tab, 0 Refill(s) Active 10/03/2016 [facility] Dilaudid Notes: (Same as: Dila udid) Inactive 10/03/2016 [facility] Oxycodone Hydrochloride 5 MG Oral Tablet Notes: (Same as: Roxicodone) Inactive 10/03/2016 [facility] Oxycodone Hydrochloride 5 MG Oral Tablet Notes: (Same as: Roxicodone) Inactive 10/02/2016 [facility] Dilaudid Notes: (Same as: Dila udid) Inactive 10/02/2016 [facility] vancomycin + sodium chloride 0.9% INJ 250 mL 2001 mg: infuse over 2.5 hours MEDICATION WASTE Product Size: 1000 mg Product Wasted: ___ mg No Longer Active 10/01/2016 [facility] Flexeril Notes: (Same As: Flex eril) Inactive 10/01/2016 [facility] Dilaudid Notes: Same as: Dilau did No Longer Active 09/29/2016 [facility] Vancomycin 2001 mg: infuse ov er 2.5 hours MEDICATION WASTE Product Size: 1000 mg Product Wasted: ___ mg No Longer Active 09/28/2016 [facility] Acetaminophen 325 MG / Hydrocodone Micheal trate 10 MG Oral Tablet [[place] 10/325] Notes: Do not exceed 4gm/day of acetamin ophen. (Same as: [place] 325/10) No Longer Active 09/28/2016 [facility] Acetaminophen 325 MG / Hydrocodone Micheal trate 5 MG Oral Tablet [[place] 5/325] Notes: (Same as: [place] 325/5) Do not ex ceed 4gm/day of acetaminophen. Inactive 09/28/2016 [facility] Vancomycin 2001 mg: infuse ov er 2.5 hours MEDICATION WASTE Product Size: 1000 mg Product Wasted: ___ mg No Longer Active 09/28/2016 [facility] Santyl Notes: (Same As: Santyl) No Longer Active 09/27/2016 [facility] tolterodine Notes: Do Not Elie h. (Same As: Detrol [place]) No Longer Active 09/27/2016 [facility] Folic Acid Notes: (Same as: Fo lvite) No Longer Active 09/27/2016 [facility] ferrous sulfate Notes: Give wi th food. "Do Not Crush" No Longer Active 09/27/2016 [facility] Amitriptyline Notes: (Same as: Elavil) No Longer Active 09/27/2016 [facility] Lopressor Notes: (Same as: Lop ressor) No Longer Active 09/27/2016 [facility] Vancomycin 2001 mg: infuse ov er 2.5 hours Inactive 09/27/2016 [facility] pregabalin Notes: (Same as: Ly steve) No Longer Active 09/26/2016 [facility] Alprazolam 2 MG Oral Tablet [Xanax] Notes: With food or milk (Same as: Xanax) No Longe r Active 09/26/2016 [facility] pantoprazole Notes: Tablet miles uld not be chewed or crushed. (Same as: Protonix) N o Longer Active 09/26/2016 [facility] Levi 24 gm packet Notes: (Corey e as: Levi Jessie) No Longer Active 09/26/2016 [facility] tizanidine Notes: (Same As: Za naflex) No Longer Active 09/26/2016 [facility] Docusate Sodium 100 MG Oral Capsule 100 mg, 1 cap, Route: PO, Drug form: CAP, BID, Dosing Weight 75.455, kg, PRN Constipation, Start date: 09/26/16 10:10:00 [employer]OMETRI[employer] PRESIDENT/PRACTICE OWNER, Duration: 30 day, Stop date: 10/26/16 10:09:00 CDT Inactive 09/26/2016 [facility] pneumococcal capsular polysaccharide typ e 1 vaccine / pneumococcal capsular polysaccharide type 10A vaccine / pneumococcal capsular polysaccharide type 11A vaccine / pneumococcal capsular polysaccharide type 12F vaccine / pneumococcal capsular polysacchar 0.5 mL, Route: IM, Daily, Start date: 09/26/16 9:00:00 OPTOMETRIST PRESIDENT/PRACTICE OWNER, Duration: 1 doses or times, Stop date: 09/26/16 9:00:00 OPTOMETRIST PRESIDENT/PRACTICE OWNER No Longer Active 09/26/2016 [facility] Alprazolam 0.25 MG Oral Tablet [Xanax] Notes: With food or milk (Same as: Xanax) No Longer Active 09/26/2016 [facility] Alprazolam 2 MG Oral Tablet [Xanax] 2 mg = 1 tab, PO, BID, # 20 tab, 0 Refill(s) Active 09/26/2016 [facility] meropenem + sodium chloride 0.9% INJ 100 mL Notes: Same as Merrem MEDICATION WASTE Product Size: 500 mg Product Wasted: ___ mg No Longer Active 09/26/2016 [facility] Enoxaparin Notes: (Same as: Lo venox) No Longer Active 09/26/2016 [facility] meropenem 1,000 mg, Route: IV, Q12H, Dosing Weight 72.727, kg, Priority: NOW, Start date: 09/25/16 18:46:00 OPTOMETRIST PRESIDENT/PRACTICE OWNER, Duration: 22 day, Stop date: 10/17/16 9:00:00 CDT Inactive 09/26/2016 [facility] Labetalol Notes: (Same as: Richard alan Trandajazmin) Push over 2 minutes Give bolus over 2-3 minutes. No Longer Active 09/26/2016 [facility] Acetaminophen 325 MG / Hydrocodone Micheal trate 5 MG Oral Tablet [[place] 5/325] Notes: (Same as: [place] 325/5) Do not ex ceed 4gm/day of acetaminophen. No Longer Activ e 09/26/2016 [facility] Tylenol Notes: Do not exceed 4 gm/day. (Same as: Tylenol) No Longer Active 09/26/2016 [facility] Zofran Notes: (Same as: Zofran ) MEDICATION WASTE Product Size: 4 mg Product Wasted: ___ mg No Longer Active 09/26/2016 [facility] Acetaminophen 325 MG / Hydrocodone Micheal trate 5 MG Oral Tablet [[place] 5/325] 1 tab, Route: PO, Drug Form: TAB, Dosing Weight 72.727, kg, ONCE, PRN Pain Score 1-3, Start date: 09/25/16 17:37:00 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 09/25/2016 [facility] Ativan 0.5 mg, Route: IVP, [place]den g form: INJ, ONCE, Dosing Weight 72.727, kg, PRN Anxiety, Start date: 09/25/16 17:25:00 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 09/25/2016 [facility] Zofran 4 mg, Route: IVP, Drug form: INJ, ONCE, Dosing Weight 72.727, kg, Priority: STAT, Start date: 09/25/16 15:16:00 OPTOMETRIST PRESIDENT/PRACTICE OWNER, Stop date: 09/25/16 15:16:00 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 09/25/2016 [facility] Morphine 4 mg, Route: IVP, ONC E, Dosing Weight 72.727, kg, Priority: STAT, Start date: 09/25/16 15:16:00 OPTOMETRIST PRESIDENT/PRACTICE OWNER, Stop date: 09/25/16 15:16:00 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 09/25/2016 [facility] meropenem Notes: (Same as: Sandy rem) . MEDICATION WASTE Product Size: 1000 mg Product Wasted: ___ mg Inactive 09/25/2016 [facility] Sodium Chloride 0.154 MEQ/ML Injectable Solution 2,000 mL, 2000 ml/hr, Infuse Over: 1 hr, Route: IV, 2,000, Drug form: INJ, ONCE, Priority: STAT, Dosing Weight 72.727 kg, Start date: 09/25/16 15:01:00 OPTOMETRIST PRESIDENT/PRACTICE OWNER, Duration: 1 doses or times, Stop date: 09/25/16 15:01:00 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 09/25/2016 [facility] Zofran Notes: (Same as: Zofran ) MEDICATION WASTE Product Size: 4 mg Product Wasted: ___ mg Inactive 09/22/2016 [facility] Morphine Notes: (Same as:MORPh ine Sulfate) Inactive 09/22/2016 [facility] Famotidine 20 mg, Route: IVP, ONCE, Dosing Weight 70.455, kg, Priority: STAT, Start date: 09/22/16 12:57:00 OPTOMETRIST PRESIDENT/PRACTICE OWNER, Stop date: 09/22/16 12:57:00 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 09/22/2016 [facility] Ondansetron 4 mg, Route: IVP, ONCE, Dosing Weight 70.455, kg, Priority: STAT, Start date: 09/22/16 12:57:00 OPTOMETRIST PRESIDENT/PRACTICE OWNER, Stop date: 09/22/16 12:57:00 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 09/22/2016 [facility] Saline Flush 0.9% Notes: (Same as: BD Posiflush) Inactive 09/22/2016 [facility] Sodium Chloride 0.154 MEQ/ML Injectable Solution 1,000 mL, 2,000 ml/hr, Infuse Over: 30 minutes, Route: IV, 1,000, Drug form: INJ, ONCE, Priority: STAT, Dosing Weight 70.455 kg, Start date: 09/22/16 12:57:00 [employer]OMETRIST PRESIDENT/PRACTICE OWNER, Duration: 1 doses or times, Stop date: 09/22/16 12:57:00 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 09/22/2016 [facility] Saline Flush 0.9% Notes: (Same as: BD Posiflush) Inactive 09/10/2016 [facility] Calcium Chloride 0.0014 MEQ/ML / Potassi um Chloride 0.004 MEQ/ML / Sodium Chloride 0.103 MEQ/ML / Sodium Lactate 0.028 MEQ/ML Injectable Solution 1,000 mL, 2,000 ml/hr, Infuse Over: 0.5 hr, Route: IV, 1,000, Drug form: INJ, ONCE, Priority: STAT, Dosing Weight 70.455 kg, Start date: 09/10/16 14:17:00 [employer] PRESIDENT/PRACTICE OWNER, Duration: 1 doses or times, Stop date: 09/10/16 14:17:00 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 09/10/2016 [facility] Acetaminophen 300 MG / Codeine Phosphate 30 MG Oral Tablet [Tylenol with Codeine #3] 1 - 2 tab, PO, Q4H, PRN Pain, X 2 day, # 20 tab, 0 Refill(s) No Longer Active 09/04/2016 [facility] metoprolol tartrate 25 mg oral tablet 12.5 mg = 0.5 tab, PO, Q12H, # 30 tab, 0 Refill(s) Active 09/04/2016 [facility] pregabalin 150 mg oral capsule 150 mg = 1 cap, PO, BID, # 60 cap, 0 Refill(s) Active 09/04/2016 [facility] fluconazole 100 mg oral tablet 100 mg = 1 tab, PO, [id number], X 7 day, # 7 tab, 0 Refill(s) Active 09/04/2016 [facility] Alprazolam 1 MG Oral Tablet [Xanax] 1 mg = 1 tab, PO, BID, X 7 day, # 14 tab, 0 Refill(s) Active 09/04/2016 [facility] amitriptyline 50 mg oral tablet 50 mg = 1 tab, PO, Bedtime, # 14 tab, 0 Refill(s) Active 09/04/2016 [facility] Diflucan Notes: (Same as: Difl ucan) No Longer Active 08/31/2016 [facility] sodium chloride 0.9% 1000 ml INJ 1,000 mL 1,000 mL, Rate: 75 ml/hr, Infuse over: 13.3 hr, Route: IV, Dosing Weight 75.455 kg, Total Volume: 1,000, Start date: 08/31/16 10:20:00 [employer] PRESIDENT/PRACTICE OWNER, Duration: 1 doses or times, Stop date: 08/31/16 23:37:00 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 08/31/2016 [facility] Potassium Chloride 1.33 MEQ/ML Oral Solution Notes: (Same as: Potassium Chloride) Inactive 08/31/2016 [facility] Vancomycin 2001 mg: infuse ov er 2.5 hours MEDICATION WASTE Product Size: 1000 mg Product Wasted: ___ mg No Longer Active 08/31/2016 [facility] Amitriptyline Notes: (Same as: Elavil) No Longer Active 08/31/2016 [facility] sodium chloride 0.9% 1000 ml INJ 1,000 mL 1,000 mL, Rate: 75 ml/hr, Infuse over: 13.3 hr, Route: IV, Dosing Weight 75.455 kg, Total Volume: 1,000, Start date: 08/30/16 16:44:00 [employer] PRESIDENT/PRACTICE OWNER, Duration: 30 day, Stop date: 09/29/16 16:43:00 [employer] PRESIDENT/PRACTICE OWNER No Longe r Active 08/30/2016 [facility] Levi 24 gm packet Notes: (Corey e as: Levi Colon) No Longer Active 08/30/2016 [facility] pantoprazole Notes: Tablet miles uld not be chewed or crushed. (Same as: Protonix) N o Longer Active 08/30/2016 [facility] Levi 24 gram Levi 24 gram, S ee Instructions, 1-3 packets daily with meals, # 1 box, Refill(s) 1 Active 08/30/2016 [facility] meropenem 1 g intravenous injection 1 gm, IV, Q24H, X 10 day, # 1 box, 0 Refill(s) Active 08/30/2016 [facility] fluconazole 100 mg oral tablet 100 mg = 1 tab, PO, [id number], 0 Refill(s) No Longer Active 08/30/2016 [facility] Alprazolam 1 MG Oral Tablet [Xanax] 1 mg = 1 tab, PO, BID, 0 Refill(s) No Longer Active 08/30/2016 [facility] Diflucan Notes: (Same as: Difl ucan) Do not refrigerate Inactive 08/30/2016 [facility] meropenem Notes: Same as Barak m MEDICATION WASTE Product Size: 500 mg Product Wasted: ___ mg No Longer Active 08/30/2016 [facility] metoprolol tartrate Notes: (Sa me as: Lopressor) No Longer Active 08/30/2016 [facility] Methadone Notes: (Same as: Dol ophine) No Longer Active 08/30/2016 [facility] Folic Acid Notes: (Same as: Fo lvite) No Longer Active 08/30/2016 [facility] ferrous sulfate Notes: Give wi th food. "Do Not Crush" No Longer Active 08/30/2016 [facility] Santyl Notes: (Same As: Santyl) No Longer Active 08/30/2016 [facility] Alprazolam 1 MG Oral Tablet [Xanax] Notes: With food or milk (Same as: Xanax) No Longe r Active 08/30/2016 [facility] heparin Notes: porcine heparin No Longer Active 08/30/2016 [facility] tolterodine Notes: Do Not Elie h. (Same As: Detrol LA) No Longer Active 08/30/2016 [facility] tizanidine Notes: (Same As: Za naflex) No Longer Active 08/30/2016 [facility] Kayexalate Notes: (sodium poly styrene sulfonate 15 gm/60 ml SOLITARIO) Shake well before use. (Same as: Kayexalate, SPS) Inactive 08/30/2016 [facility] pregabalin Notes: (Same as: Ly steve) No Longer Active 08/30/2016 [facility] Docusate Sodium 100 MG Oral Capsule 100 mg, 1 cap, Route: PO, Drug form: CAP, BID, Dosing Weight 75.455, kg, PRN Constipation, Start date: 08/30/16 8:17:00 [employer] PRESIDENT/PRACTICE OWNER, Duration: 30 day, Stop date: 09/29/16 8:16:00 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 08/30/2016 [facility] Zosyn Notes: (Same as: Zosyn) Dosing based on Piperacillin component MEDICATION WASTE Product Size: 3375 mg Product Wasted: __0 mg Inactive 08/30/2016 [facility] Ondansetron Notes: (Same as: Kory davis) MEDICATION WASTE Product Size: 4 mg Product Wasted: ___ mg No Longer Active 08/30/2016 [facility] Docusate Notes: (Same as: Cola ce) (Do Not Crush) No Longer Active 08/30/2016 [facility] Morphine Notes: (Same as:MORPh ine Sulfate) No Longer Active 08/30/2016 [facility] Acetaminophen Notes: Do not ex ceed 4 gm/day. (Same as: Tylenol) No Longer Active 08/30/2016 [facility] Hydromorphone Notes: Same as: Dilaudid Inactive 08/30/2016 [facility] Vancomycin 2001 mg: infuse ov er 2.5 hours MEDICATION WASTE Product Size: 1000 mg Product Wasted: ___ mg Inactive 08/30/2016 [facility] Dilaudid 1 mg, Route: IV, ONCE , Dosing Weight 78.182, kg, Priority: STAT, Start date: 08/30/16 1:10:00 [employer] PRESIDENT/PRACTICE OWNER, Stop date: 08/30/16 1:10:00 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 08/30/2016 [facility] Sodium Chloride 0.154 MEQ/ML Injectable Solution 2,000 mL, 2000 ml/hr, Infuse Over: 1 hr, Route: IV, 2,000, Drug form: INJ, ONCE, Priority: STAT, Dosing Weight 78.182 kg, Start date: 08/30/16 0:15:00 [employer] PRESIDENT/PRACTICE OWNER, Duration: 1 doses or times, Stop date: 08/30/16 0:15:00 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 08/30/2016 [facility] meropenem Notes: (Same as: Sandy rem) . MEDICATION WASTE Product Size: 1000 mg Product Wasted: ___ mg Inactive 08/30/2016 [facility] Zosyn 4.5 gm, Route: IVPB, ONC E, Dosing Weight 78.182, kg, Priority: STAT, Start date: 08/30/16 0:11:00 [employer]OMET[employer] PRESIDENT/PRACTICE OWNER, Stop date: 08/30/16 0:11:00 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 08/30/2016 [facility] Rocephin Notes: (Same As: Roce phin). Use with 100 mL NS and infuse over 30 min MEDICATION WASTE Product Size: 1000 mg Product Wasted: ___ mg Inactive 08/30/2016 [facility] Saline Flush 0.9% Notes: (Same as: BD Posiflush) No Longer Active 08/30/2016 [facility] Sodium Chloride 0.154 MEQ/ML Injectable Solution 1,000 mL, 1000 ml/hr, Infuse Over: 1 hr, Route: IV, 1,000, Drug form: INJ, ONCE, Priority: STAT, Dosing Weight 70.455 kg, Start date: 08/29/16 23:04:00 [employer]OM[employer] PRESIDENT/PRACTICE OWNER, Duration: 1 doses or times, Stop date: 08/29/16 23:04:00 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 08/30/2016 [facility] Sodium polystyrene sulfonate 250 MG/ML O ral Suspension [Kayexalate] 15 gm, PO, QID, # 100 gm, 0 Refill(s) Active 08/24/2016 [facility] Saline Flush 0.9% Notes: (Same as: BD Posiflush) Inactive 08/23/2016 [facility] metoprolol tartrate 25 mg oral tablet 12.5 mg = 0.5 tab, PO, Q12H, # 30 tab, 0 Refill(s), other Active 08/23/2016 [facility] Folic Acid 1 MG Oral Tablet 1 mg = 1 tab, PO, Daily, # 30 tab, 0 Refill(s), other Active 08/23/2016 [facility] ferrous sulfate 325 mg oral enteric coated tablet 325 mg = 1 tab, PO, Daily, # 30 tab, 0 Refill(s), other Active 08/23/2016 [facility] Docusate Sodium 100 MG Oral Capsule 100 mg = 1 cap, PO, BID, PRN Constipation, # 20 cap, 0 Refill(s), other Active 08/23/2016 [facility] Imdur Notes: (Same as:Imdur) " Do Not Crush" Take on empty stomach/ full glass of water. Do not crush Inactive 08/23/2016 [facility] enalapril 10 mg, Route: PO, Dr ug form: TAB, Daily, Dosing Weight 70.455, kg, Start date: 08/23/16 9:00:00 [employer]OM[employer] PRESIDENT/PRACTICE OWNER, Duration: 30 day, Stop date: 09/21/16 9:00:00 [employer]OMETRIST PRESIDENT/PRACTICE OWNER No Longer Active 08/23/2016 [facility] tolterodine 4 mg oral capsule, extended release 4 mg = 1 cap, PO, Daily, # 30 cap, 0 Refill(s) Active 08/23/2016 [facility] Alprazolam 1 MG Oral Tablet [Xanax] 1 mg = 1 tab, PO, BID, X 7 day, # 14 tab, 0 Refill(s) Active 08/23/2016 [facility] Hydralazine Hydrochloride 25 MG Oral Tablet Notes: (Same as: Apresoline) May interfere w/enteral feedings Take With Food. No Longer Active 08/22/2016 [facility] metoprolol extended release No tru: (Same as: Toprol XL) May split tab, but do not crush. 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 (Same as: Kayexalate, SPS) Inactive 08/20/2016 [facility] Lyrica Notes: (Same as: Lyrica) No Longer Active 08/20/2016 [facility] Methadone Notes: (Same as: Dol ophine) Inactive 08/20/2016 [facility] metoprolol tartrate Notes: (Sa me as: Lopressor) No Longer Active 08/20/2016 [facility] Tylenol Notes: Do not exceed 4 gm/day. (Same as: Tylenol) No Longer Active 08/19/2016 [facility] Roxicodone Notes: (Same as: Ro xicodone) No Longer Active 08/19/2016 [facility] Acetaminophen 325 MG / Oxycodone Hydroch loride 10 MG Oral Tablet [Percocet 10/325] 1 tab, Route: PO, Drug Form: TAB, Dosing Weight 70.455, kg, Q4H, PRN Pain Score 4-6, Start date: 08/19/16 17:37:00 [employer]OM[employer] PRESIDENT/PRACTICE OWNER, Duration: 30 day, Stop date: 09/18/16 17:36:00 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 08/19/2016 [facility] Metoprolol Notes: (Same as: Kesha pressor) Push over 2 minutes No Longer Active 08/19/2016 [facility] D5W 1/2NS 1,000 mL 1,000 mL, R ate: 75 ml/hr, Infuse over: 13.3 hr, Route: IV, Dosing Weight 70.455 kg, Total Volume: 1,000, Priority: STAT, Start date: 08/19/16 13:42:00 [employer]OMET[employer]ST PRESIDENT/PRACTICE OWNER, Duration: 30 day, Stop date: 09/18/16 13:41:00 [employer]OM[employer] PRESIDENT/PRACTICE OWNER No Longe r Active 08/19/2016 [facility] Naloxone Notes: (Same as: Narc an) MEDICATION WASTE Product Size: 2 mg Product Wasted: ___ mg No Longer Active 08/19/2016 [facility] Metoprolol Notes: (Same as: Kesha pressor) Push over 2 minutes Inactive 08/19/2016 [facility] Alprazolam Notes: With food or milk (Same as: Xanax) No Longer Active 08/18/2016 [facility] Kayexalate Notes: (sodium poly styrene sulfonate 15 gm/60 ml SOLITARIO) Shake well before use. (Same as: Kayexalate, SPS) Inactive 08/18/2016 [facility] Sodium polystyrene sulfonate N otes: (sodium polystyrene sulfonate 15 gm/60 ml SOLITARIO) Shake well before use. (Same as: Kayexalate, SPS) Inactive 08/18/2016 [facility] sodium bicarbonate 8.4% Notes: (sodium bicarb 8.4% (1 mEq/ml) 50 ml syringe) Inactiv e 08/18/2016 [facility] Dextrose 50% Syringe 25 gm, 50 mL, Route: IVP, Drug Form: INJ, Dosing Weight 70.455, kg, ONCE, Start date: 08/18/16 9:03:00 [employer]OMETRIST PRESIDENT/PRACTICE OWNER, Stop date: 08/18/16 9:03:00 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 08/18/2016 [facility] Calcium Gluconate Notes: WASTE : F/P - Sink; E - Municipal Trash Bin Inactive 08/18/2016 [facility] Insulin regular Notes: (Same a s: Humulin R and NovoLIN R) WASTE: F/P - Black; E - Municipal Trash Bin (Do not shake) Inactive 08/18/2016 [facility] dexamethasone (ANES) Route: IV , Drug form: INJ, ONCE, Stop date: 08/17/16 17:41:00 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 08/17/2016 [facility] esmolol (ANES) Route: IV, Drug form: INJ, ONCE, Stop date: 08/17/16 17:32:00 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 08/17/2016 [facility] ondansetron (ANES) Route: IV, Drug form: INJ, ONCE, Stop date: 08/17/16 17:32:00 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 08/17/2016 [facility] lidocaine (ANES) Route: IV, Dr ug form: INJ, ONCE, Stop date: 08/17/16 17:22:00 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 08/17/2016 [facility] propofol (ANES) Route: IV, Arden g form: INJ, ONCE, Stop date: 08/17/16 17:22:00 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 08/17/2016 [facility] fentaNYL (ANES) Route: IV, Arden g form: INJ, ONCE, Stop date: 08/17/16 17:22:00 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 08/17/2016 [facility] midazolam (ANES) Route: IV, Dr ug form: SOLN, ONCE, Stop date: 08/17/16 17:22:00 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 08/17/2016 [facility] Ondansetron 4 mg, Route: IVP, ONCE, Dosing Weight 70.455, kg, PRN Nausea & Vomiting, Start date: 08/17/16 17:01:00 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 08/17/2016 [facility] Fentanyl Notes: (Same as: Subl imaze) Preservative free. Inactive 08/17/2016 [facility] Naloxone 0.4 mg, Route: IVP, Q 2MIN, Dosing Weight 70.455, kg, PRN Narcotic Reversal, Start date: 08/17/16 17:01:00 [employer]OMETRIST PRESIDENT/PRACTICE OWNER, Duration: 8 doses or times, Stop date: Limited # of times Inactive 08/17/2016 [facility] Flumazenil 0.2 mg, Route: IVP, PRN, Dosing Weight 70.455, kg, PRN Benzodiazepine Reversal, Initial dose, Start date: 08/17/16 17:01:00 [employer]OMETRIST PRESIDENT/PRACTICE OWNER, Duration: 30 day, Stop date: 09/16/16 17:00:00 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 08/17/2016 [facility] Labetalol 10 mg, Route: IVP, Q 5Min, Dosing Weight 70.455, kg, PRN Elevated BP, Start date: 08/17/16 17:01:00 [employer]OMETRIST PRESIDENT/PRACTICE OWNER, Duration: 5 doses or times, Stop date: Limited # of times Inactive 08/17/2016 [facility] Oxycodone 5 mg, Route: PO, Arden g form: TAB, Q4H, Dosing Weight 70.455, kg, PRN Pain Score 4-6, Start date: 08/17/16 17:01:00 [employer]OMETRIST PRESIDENT/PRACTICE OWNER, Duration: 30 day, Stop date: 09/16/16 17:00:00 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 08/17/2016 [facility] Ketorolac 30 mg, Route: IVP, O NCE, Dosing Weight 70.455, kg, Start date: 08/17/16 17:01:00 [employer]OMETRIST PRESIDENT/PRACTICE OWNER, Duration: 1 doses or times, Stop date: 08/17/16 17:01:00 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 08/17/2016 [facility] Hydromorphone 0.5 mg, Route: I 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, Q5Min, Dosing Weight 70.455, kg, PRN Pain Score 7-10, Start date: 08/17/16 17:01:00 [employer]OMETRIST PRESIDENT/PRACTICE OWNER, Duration: 4 doses or times, Stop date: Limited # of times Inactive 08/17/2016 [facility] Hydralazine 10 mg, Route: IVP, Q20Min, Dosing Weight 70.455, kg, PRN Elevated BP, Start date: 08/17/16 17:01:00 [employer]OMETRIST PRESIDENT/PRACTICE OWNER, Duration: 2 doses or times, Stop date: Limited # of times Inactive 08/17/2016 [facility] LR 1000 mL INJ (ANES) Route: I V, Total Volume: 1,000, Start date: 08/17/16 16:25:00 [employer]OMETRIST PRESIDENT/PRACTICE OWNER, Stop date: 08/17/16 17:25:00 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 08/17/2016 [facility] Alprazolam 1 MG Oral Tablet No tru: With food or milk (Same as: Xanax) No Longer Active 08/17/2016 [facility] Detrol LA Notes: Do Not Crush. (Same As: Detrol LA) No Longer Active 08/17/2016 [facility] Santyl 1 appl, Route: TOP, Iacha ly, Start date: 08/17/16 9:00:00 [employer]OMETRIST PRESIDENT/PRACTICE OWNER, Duration: 30 day, Stop date: 09/15/16 9:00:00 OPTOMETRIST PRESIDENT/PRACTICE OWNER No Longer Active 08/17/2016 [facility] Sodium Chloride 0.154 MEQ/ML Injectable Solution 1,000 mL, Rate: 100 ml/hr, Infuse over: 10 hr, Route: IV, Dosing Weight 70.455 kg, Total Volume: 1,000, Start date: 08/16/16 21:11:00 [employer]OMETRIST PRESIDENT/PRACTICE OWNER, Duration: 30 day, Stop date: 09/15/16 21:10:00 [employer]OMETRIST PRESIDENT/PRACTICE OWNER No Longer Active 08/17/2016 [facility] Amitriptyline 50 mg, Route: PO , Drug form: TAB, Bedtime, Dosing Weight 70.455, kg, Start date: 08/16/16 21:00:00 [employer]OMETRIST PRESIDENT/PRACTICE OWNER, Duration: 30 day, Stop date: 09/14/16 21:00:00 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 08/17/2016 [facility] Methadone Notes: (Same as: Dol ophine) No Longer Active 08/16/2016 [facility] Alprazolam 1 MG Oral Tablet [Xanax] 1 mg, 1 tab, Route: PO, Drug form: TAB, BID, Dosing Weight 70.455, kg, Start date: 08/16/16 17:00:00 [employer]OMETRIST PRESIDENT/PRACTICE OWNER, Duration: 30 day, Stop date: 09/15/16 9:00:00 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 08/16/2016 [facility] Calcium Chloride 0.0014 MEQ/ML / Potassi um Chloride 0.004 MEQ/ML / Sodium Chloride 0.103 MEQ/ML / Sodium Lactate 0.028 MEQ/ML Injectable Solution 1,000 mL, Rate: 25 ml/hr, Infuse over: 4 0 hr, Route: IV, Dosing Weight 70.455 kg, Total Volume: 1,000, Start date: 08/16/16 10:44:00 OPTOMETRIST PRESIDENT/PRACTICE OWNER, Duration: 30 day, Stop date: 09/15/16 10:43:00 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 08/16/2016 [facility] Sodium Chloride 0.154 MEQ/ML Injectable Solution 1,000 mL, Rate: 25 ml/hr, Infuse over: 40 hr, Route: IV, Dosing Weight 70.455 kg, Total Volume: 1,000, Start date: 08/16/16 10:44:00 [employer]OMETRIST PRESIDENT/PRACTICE OWNER, Duration: 30 day, Stop date: 09/15/16 10:43:00 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 08/16/2016 [facility] ciprofloxacin (ANES) Route: IV , Drug form: INJ, ONCE, Stop date: 08/16/16 9:51:00 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 08/16/2016 [facility] Docusate Sodium 100 MG Oral Capsule 100 mg = 1 cap, PO, BID, PRN Constipation, # 20 cap, 0 Refill(s) On Hold 08/16/2016 [facility] metoprolol tartrate 25 mg oral tablet 12.5 mg = 0.5 tab, PO, Q12H, # 30 tab, 0 Refill(s) On Hold 08/16/2016 [facility] Folic Acid 1 MG Oral Tablet 1 mg = 1 tab, PO, Daily, # 30 tab, 0 Refill(s) On Hold 08/16/2016 [facility] ferrous sulfate 325 mg oral enteric coated tablet 325 mg = 1 tab, PO, Daily, # 30 tab, 0 Refill(s) On Hold 08/16/2016 [facility] ondansetron (ANES) Route: IV, Drug form: INJ, ONCE, Stop date: 08/16/16 9:44:00 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 08/16/2016 [facility] propofol (ANES) Route: IV, Arden g form: INJ, ONCE, Stop date: 08/16/16 9:39:00 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 08/16/2016 [facility] lidocaine (ANES) Route: IV, Dr ug form: INJ, ONCE, Stop date: 08/16/16 9:39:00 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 08/16/2016 [facility] fentaNYL (ANES) Route: IV, Arden g form: INJ, ONCE, Stop date: 08/16/16 9:14:00 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 08/16/2016 [facility] midazolam (ANES) Route: IV, Dr ug form: SOLN, ONCE, Stop date: 08/16/16 9:14:00 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 08/16/2016 [facility] LR 1000 mL INJ (ANES) Route: I V, Total Volume: 1,000, Start date: 08/16/16 8:19:00 [employer]OMETRIST PRESIDENT/PRACTICE OWNER, Stop date: 08/16/16 9:19:00 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 08/16/2016 [facility] 200 ML Ciprofloxacin 2 MG/ML Injection [Cipro] Notes: Do not refrigerate Inactive 08/16/2016 [facility] metoprolol tartrate Notes: (Sa me as: Lopressor) No Longer Active 08/16/2016 [facility] Dilaudid 0.5 mg, 0.5 mL, Route : IVP, Drug form: INJ, Q4H, Dosing Weight 70.455, kg, PRN Pain Score 7-10, Start date: 08/15/16 9:11:00 [employer]OMETRIST PRESIDENT/PRACTICE OWNER, Duration: 30 day, Stop date: 09/14/16 9:10:00 [employer]OMETRIST PRESIDENT/PRACTICE OWNER No Longer Active 08/15/2016 [facility] folic acid 1 mg oral tablet No tru: (Same as: Folvite) No Longer Active 08/15/2016 [facility] ferrous sulfate Notes: Give wi th food. "Do Not Crush" No Longer Active 08/15/2016 [facility] Hemocyte-F 1 tab, Route: PO, D osing Weight 70.455, kg, Daily, Start date: 08/15/16 9:00:00 [employer]OMETRIST PRESIDENT/PRACTICE OWNER, Duration: 30 day, Stop date: 09/13/16 9:00:00 [employer]OMETRIST PRESIDENT/PRACTICE OWNER No Longer Active 08/15/2016 [facility] potassium chloride Notes: (Corey e as: K-Dur 20) "Do Not Crush" With food and full glass of water Inactive 08/14/2016 [facility] RN- Do not give Vanc till trough drawn 08/14/16 @ 00:30 RN- Do not give Vanc till trough drawn 08/14/16 @ 00:30, Attn:MILA, Drug form: MISC, Route: MISC, ONCE, 08/14/16 0:00:00 [employer]OM[employer]ST PRESIDENT/PRACTICE OWNER, Stop date: 08/14/16 0:00:00 [employer]OM[employer]ST PRESIDENT/PRACTICE OWNER No Longer Active 08/14/2016 [facility] colistimethate + sodium chloride 0.9% INJ 100 mL Notes: (Same As: Coly-Mycin) No Longe r Active 08/14/2016 [facility] Santyl Notes: (Same As: Santyl) No Longer Active 08/13/2016 [facility] Streptococcus pneumoniae serotype 1 caps ular antigen diphtheria [id number] protein conjugate vaccine / Streptococcus pneumoniae serotype 14 capsular antigen diphtheria [id number] protein conjugate vaccine / Streptococcus pneumoniae serotype 18C capsular antigen d Notes: Lightly roll vial (DO NOT SHAKE) before administration. (Same as: Prevnar 13) Inactive 08/13/2016 [facility] pregabalin Notes: (Same as: Ly steve) No Longer Active 08/13/2016 [facility] Santyl Notes: (Same As: Santyl) No Longer Active 08/13/2016 [facility] Amitriptyline Notes: (Same as: Elavil) No Longer Active 08/13/2016 [facility] Alprazolam 1 MG Oral Tablet [Xanax] Notes: With food or milk (Same as: Xanax) No Longe r Active 08/13/2016 [facility] Acetaminophen 325 MG / Hydrocodone Micheal trate 10 MG Oral Tablet [[place] 10/325] Notes: Do not exceed 4gm/day of acetamin ophen. (Same as: [place] 325/10) No Longer Active 08/12/2016 [facility] Morphine Notes: (Same as:MORPh ine Sulfate) No Longer Active 08/12/2016 [facility] Levi 24 gm packet Notes: (Corey e as: Levi Jessie) No Longer Active 08/12/2016 [facility] pantoprazole Notes: Tablet miles uld not be chewed or crushed. (Same as: Protonix) N o Longer Active 08/12/2016 [facility] tizanidine Notes: (Same As: Za naflex) No Longer Active 08/12/2016 [facility] Ondansetron Notes: (Same as: Kory davis) MEDICATION WASTE Product Size: 4 mg Product Wasted: ___ mg No Longer Active 08/12/2016 [facility] Enoxaparin Notes: (Same as: Lo venox) No Longer Active 08/12/2016 [facility] Vancomycin 2001 mg: infuse ov er 2.5 hours MEDICATION WASTE Product Size: 1000 mg Product Wasted: ___ mg No Longer Active 08/12/2016 [facility] Rocephin Notes: (Same As: Roce phin). Use with 100 mL NS and infuse over 30 min MEDICATION WASTE Product Size: 1000 mg Product Wasted: ___ mg No Longer Active 08/12/2016 [facility] Docusate Notes: (Same as: Cola ce) (Do Not Crush) No Longer Active 08/12/2016 [facility] Morphine Notes: (Same as:MORPh ine Sulfate) Inactive 08/12/2016 [facility] Ondansetron Notes: (Same as: Kory davis) MEDICATION WASTE Product Size: 4 mg Product Wasted: ___ mg Inactive 08/12/2016 [facility] Saline Flush 0.9% Notes: (Same as: BD Posiflush) No Longer Active 08/12/2016 [facility] Sodium Chloride 0.154 MEQ/ML Injectable Solution 1,000 mL, Rate: 50 ml/hr, Infuse over: 20 hr, Route: IV, Dosing Weight 70.455 kg, Total Volume: 1,000, Start date: 08/12/16 0:07:00 [employer] PRESIDENT/[employer]ACTICE OWNER, Stop date: 09/11/16 0:06:00 [employer] PRESIDENT/PRACTICE OWNER No Longer Active 08/12/2016 [facility] Valium Notes: (Same as: Valium) Inactive 08/12/2016 [facility] Gentamicin Sulfate (FDC) Notes : TIME CRITICAL MEDICATION (Same as Garamycin) Inactive 08/11/2016 [facility] Zofran 4 mg, Route: IVP, Drug form: INJ, ONCE, Dosing Weight 70.455, kg, Priority: STAT, Start date: 08/11/16 11:41:00 [employer] PRESIDENT/PRACTICE OWNER, Stop date: 08/11/16 11:41:00 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 08/11/2016 [facility] Sodium Chloride 0.154 MEQ/ML Injectable Solution 1,000 mL, 1,000 ml/hr, Infuse Over: 1 hr, Route: IV, ONCE, Priority: STAT, Dosing Weight 70.455 kg, Start date: 08/11/16 11:40:00 [employer]OM[employer] PRESIDENT/PRACTICE OWNER, Duration: 1 doses or times, Stop date: 08/11/16 11:40:00 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 08/11/2016 [facility] promethazine 25 mg oral tablet 25 mg = 1 tab, PO, Q6H, PRN Nausea/Vomiting, FOR BREAK THROUGH NAUSEA OR VOMITING, X 3 day, # 12 tab, 0 Refill(s) On Hold 08/11/2016 [facility] Imodium A-D Notes: (Same as: I modium) MAX adult dose is 8 caps/day Inactive 08/11/2016 [facility] Promethazine Notes: Do not giv e IV push. (Same as: Phenergan) Inactive 08/11/2016 [facility] Ondansetron 4 MG Disintegrating Tablet [Zofran] 4 mg = 1 tab, PO, BID, PRN Nausea and Vomiting, Dissolve tab under tongue, X 5 day, # 10 tab, 0 Refill(s) On Hold 08/10/2016 [facility] Ondansetron Notes: (Same as: Z ofran) MEDICATION WASTE Product Size: 4 mg Product Wasted: ___ mg Inactive 08/10/2016 [facility] Saline Flush 0.9% Notes: Same as: BD Posiflush Sterile Inactive 08/10/2016 [facility] Sodium Chloride 0.154 MEQ/ML Injectable Solution 1,000 mL, 1000 ml/hr, Infuse Over: 1 hr, Route: IV, 1,000, Drug form: INJ, ONCE, Priority: STAT, Dosing Weight 77.273 kg, Start date: 08/10/16 4:48:00 [employer] PRESIDENT/PRACTICE OWNER, Duration: 1 doses or times, Stop date: 08/10/16 4:48:00 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 08/10/2016 [facility] Amitriptyline Notes: (Same as: Elavil) Inactive 06/13/2016 [facility] Alprazolam 1 MG Oral Tablet [Xanax] Notes: With food or milk (Same as: Xanax) Inactive 06/12/2016 [facility] Metronidazole 500 MG Oral Tablet 500 mg = 1 tab, PO, [id number], 0 Refill(s) Active 06/12/2016 [facility] colistimethate 150 mg injection See Instructions, 150 mg IV daily, # 1,500 mg, 0 Refill(s), 10 day Active 06/12/2016 [facility] Piperacillin 3000 MG / tazobactam 375 MG Injection [Zosyn] 3.375 gm, IV, Q6H, X 10 day, # 40 doses or times, 0 Refill(s) Active 06/12/2016 [facility] amitriptyline 50 mg oral tablet 50 mg = 1 tab, PO, Bedtime, 0 Refill(s) Active 06/12/2016 [facility] Alprazolam 1 MG Oral Tablet [Xanax] 1 mg = 1 tab, PO, BID, 0 Refill(s) Active 06/12/2016 [facility] Sodium Chloride 0.9% IV IVPB, 250 ml/hr, ONCE, Start date: 06/11/16 21:50:00 [employer] PRESIDENT/PRACTICE OWNER, 250 ml Inactive 06/12/2016 [facility] Zosyn Notes: (Same as: Zosyn) Dosing based on Piperacillin component MEDICATION WASTE Product Size: 3375 mg Product Wasted: ___ mg No Longer Active 06/11/2016 [facility] colistimethate + sodium chloride 0.9% INJ 100 mL Notes: (Same As: Coly-Mycin) No Longe r Active 06/11/2016 [facility] Flagyl Notes: (Same as: Flagyl ) Take with food/ avoid alcohol No Longer Active 06/10/2016 [facility] sodium chloride 0.9% 1000 ml INJ 1,000 mL 1,000 mL, Rate: 125 ml/hr, Infuse over: 8 hr, Route: IV, Dosing Weight 83.182 kg, Total Volume: 1,000, Start date: 06/10/16 10:29:00 [employer] PRESIDENT/PRACTICE OWNER, Duration: 30 day, Stop date: 07/10/16 10:28:00 [employer] PRESIDENT/PRACTICE OWNER No Longe r Active 06/10/2016 [facility] Zyvox Notes: Protect from ligh t. (Same as: Zyvox) No Longer Active 06/06/2016 [facility] Magnesium Sulfate Notes: WASTE : F/P - Sink; E - Municipal Trash Bin Inactive 06/05/2016 [facility] fluconazole 200 mg oral tablet 200 mg = 1 tab, PO, [id number], X 11 day, # 11 tab, 0 Refill(s) No Longer Active 06/04/2016 [facility] levofloxacin 500 mg oral tablet 500 mg = 1 tab, PO, [id number], X 11 day, # 11 tab, 0 Refill(s) No Longer Active 06/04/2016 [facility] Levaquin 500 mg, 1 tab, Route: PO, Drug form: TAB, [id number], Dosing Weight 83.182, kg, Start date: 06/03/16 22:00:00 CDT, Duration: 30 day, Stop date: 07/02/16 22:00:00 [employer] PRESIDENT/PRACTICE OWNER No Longer Active 06/04/2016 [facility] Fluconazole Notes: (Same as: D iflucan) No Longer Active 06/04/2016 [facility] Albuterol 0.83 MG/ML Inhalant Solution Notes: SEE RT DOCUMENTATION (Same as: Proventil) No Longer Active 06/03/2016 [facility] Amitriptyline Notes: (Same as: Elavil) No Longer Active 06/03/2016 [facility] pantoprazole Notes: Tablet miles uld not be chewed or crushed. (Same as: Protonix) N o Longer Active 06/02/2016 [facility] vancomycin + sodium chloride 0.9% INJ 250 mL 2001 mg: infuse over 2.5 hours MEDICATION WASTE Product Size: 1000 mg Product Wasted: ___ mg No Longer Active 06/02/2016 [facility] Methadone Notes: (Same as: Dol ophine) No Longer Active 06/02/2016 [facility] Ergocalciferol 85115 UNT Oral Capsule Notes: (Same as: Vitamin D) "Do Not Crush" No Longer Active 06/02/2016 [facility] Santyl Notes: (Same As: Santyl) No Longer Active 06/02/2016 [facility] Alprazolam 2 MG Oral Tablet [Xanax] Notes: With food or milk (Same as: Xanax) No Longe r Active 06/02/2016 [facility] tizanidine Notes: (Same As: Za naflex) No Longer Active 06/02/2016 [facility] pregabalin Notes: (Same as: Ly steve) No Longer Active 06/02/2016 [facility] Vancomycin 2001 mg: infuse ov er 2.5 hours MEDICATION WASTE Product Size: 1000 mg Product Wasted: ___ mg Inactive 06/02/2016 [facility] Piperacillin / tazobactam Note s: (Same as: Zosyn) Dosing based on Piperacillin component MEDICATION WASTE Product Size: 3375 mg Product Wasted: ___ mg No Longer Active 06/02/2016 [facility] Zofran Notes: (Same as: Zofran ) MEDICATION WASTE Product Size: 4 mg Product Wasted: ___ mg No Longer Active 06/02/2016 [facility] morphine Sulfate Notes: (Same as:MORPhine Sulfate) No Longer Active 06/02/2016 [facility] enoxaparin 30 mg/0.3 mL subcutaneous solution 30 mg = 0.3 ml, SUB-Q, Daily, # 14 syr, 0 Refill(s) Active 06/02/2016 [facility] Piperacillin 3000 MG / tazobactam 375 MG Injection [Zosyn] 3.375 gm, IV, Q6H, # 40 doses or times, 0 Refill(s) No Longer Active 06/02/2016 [facility] tizanidine 4 mg oral capsule 4 mg = 1 cap, PO, TID, # 90 cap, 0 Refill(s) Active 06/02/2016 [facility] Ondansetron 2 MG/ML Injectable Solution [Zofran] 4 mg, IV, Q8H, PRN as needed for nausea/vomiting, # 1 ea, 0 Refill(s) Active 06/02/2016 [facility] Dakins Quarter Strength Solution 0.125% topical TOP, BID, 0 Refill(s) Active 06/02/2016 [facility] Alprazolam 2 MG Oral Tablet [Xanax] 2 mg = 1 tab, PO, BID, # 20 tab, 0 Refill(s) No Longer Active 06/02/2016 [facility] acetaminophen 325 mg oral tablet 100.4 F, 2 tab PO QID 2 day, 0 Refill(s) Active 06/02/2016 [facility] Ergocalciferol [id number] UNT Oral Capsule 50,000 IntlUnit = 1 cap, PO, 2x/Wk, # 24 cap, 0 Refill(s) Active 06/02/2016 [facility] pregabalin 150 mg oral capsule 150 mg = 1 cap, PO, BID, # 60 cap, 0 Refill(s) Active 06/02/2016 [facility] Methadone 20 mg, PO, BID, 0 Re fill(s) Active 06/02/2016 [facility] vancomycin 1 g intravenous injection See Instructions, 1 gm IV Q24H 10 day, 0 Refill(s) No Longer Active 06/02/2016 [facility] Santyl 1 appl, TOP, Daily, 0 R efill(s) Active 06/02/2016 [facility] Macrodantin Notes: Not Recomme nded for patients with CrCl< 50 ml/min With food (Same as:Macrodantin) Inactive 06/01/2016 [facility] Enoxaparin 30 mg, Route: SUB-Q , Drug form: INJ, [id number], Dosing Weight 72.727, kg, Start date: 06/01/16 17:00:00 CDT, Duration: 30 day, Stop date: 07/01/16 5:00:00 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 06/01/2016 [facility] Lovenox Notes: (Same as: Loven ox) No Longer Active 06/01/2016 [facility] sodium chloride 0.9% 1000 ml INJ 1,000 mL 1,000 mL, Rate: 125 ml/hr, Infuse over: 8 hr, Route: IV, Dosing Weight 72.727 kg, Total Volume: 1,000, Start date: 06/01/16 16:45:00 CDT, Duration: 30 day, Stop date: 07/01/16 16:44:00 [employer]OMET[employer] PRESIDENT/PRACTICE OWNER No Longe r Active 06/01/2016 [facility] Acetaminophen Notes: Do not ex ceed 4 gm/day. (Same as: Tylenol) No Longer Active 06/01/2016 [facility] Macrobid Notes: Not Recommende d for patients with CrCl< 50 ml/min With food (Same as:Macrodantin) No Longer Active 06/01/2016 [facility] Albuterol 0.83 MG/ML Inhalant Solution Notes: SEE RT DOCUMENTATION (Same as: Proventil) Inactive 06/01/2016 [facility] Zosyn Notes: (Same as: Zosyn) Dosing based on Piperacillin component MEDICATION WASTE Product Size: 3375 mg Product Wasted: ___ mg Inactive 06/01/2016 [facility] Vancomycin 2001 mg: infuse ov er 2.5 hours MEDICATION WASTE Product Size: 1000 mg Product Wasted: ___ mg Inactive 06/01/2016 [facility] Sodium Chloride 0.154 MEQ/ML Injectable Solution 2,000 mL, 2,000 ml/hr, Infuse Over: 1 hr, Route: IV, 2,000, Drug form: INJ, ONCE, Priority: STAT, Dosing Weight 72.727 kg, Start date: 06/01/16 13:02:00 CDT, Duration: 1 doses or times, Stop date: 06/01/16 13:02:00 CDT Inactive 06/01/2016 [facility] Saline Flush 0.9% Notes: (Same as: BD Posiflush) No Longer Active 06/01/2016 [facility] ceftazidime-avibactam + sodium chloride 0.9% INJ 100 m L Notes: (Same as: Avycaz) Non-formulary Inactive 01/13/2016 [facility] nter Nexium 40 mg, Route: PO, Daily , Dosing Weight 70.2, kg, Start date: 01/12/16 9:00:00 CDT, Duration: 30 day, Stop date: 02/10/16 9:00:00 CDT No Longer Active 01/12/2016 [facility] Magnesium Sulfate Notes: WASTE : F/P - Sink; E - Municipal Trash Bin Inactive 01/12/2016 [facility] sodium chloride 0.9% INJ 250 mL 250 mL, Rate: 50 ml/hr, Infuse over: 5 hr, Route: IV, Dosing Weight 70.2 kg, Total Volume: 250, Start date: 01/11/16 17:12:00 CDT, Duration: 1 doses or times, Stop date: 01/11/16 22:11:00 CDT Inactive 01/11/2016 [facility] sodium chloride 0.9% INJ 250 mL 250 mL, Rate: 50 ml/hr, Infuse over: 5 hr, Route: IV, Dosing Weight 70.2 kg, Total Volume: 250, Start date: 01/11/16 17:06:00 CDT, Duration: 1 doses or times, Stop date: 01/11/16 22:05:00 CDT Inactive 01/11/2016 [facility] Protonix Notes: Tablet should not be chewed or crushed. (Same as: Protonix) No Longer Active 01/11/2016 [facility] nter lactobacillus rhamnosus GG Not es: Same as Culturelle No Longer Active 01/11/2016 [facility] Calcium Gluconate Notes: WASTE : F/P - Sink; E - Municipal Trash Bin No Longer Active 01/11/2016 [facility] nter lactobacillus acidophilus 1 ca p, Route: PO, Dosing Weight 70.2, kg, Daily, Start date: 01/11/16 13:00:00 CDT, Duration: 30 day, Stop date: 02/10/16 9:00:00 CDT Inactive 01/11/2016 [facility] nter Magnesium Sulfate Notes: WASTE : F/P - Sink; E - Municipal Trash Bin Inactive 01/11/2016 [facility] Amoxicillin 500 MG / Clavulanate 125 MG Oral Tablet [Augmentin 500-mg] 1 tab, PO, Q12H, X 6 week, # 84 tab, 0 R efill(s) Active 01/10/2016 [facility] fosfomycin 3 g oral powder = 1 Pack, PO, Q72H, # 15 pkg, 0 Refill(s) Active 01/10/2016 [facility] Acetaminophen 300 MG / Codeine Phosphate 30 MG Oral Tablet [Tylenol with Codeine #3] 2 tab, PO, Q4H, PRN Pain, X 7 day, # 84 tab, 0 Refill(s) Active 01/10/2016 [facility] pantoprazole 40 mg oral enteric coated tablet 40 mg = 1 tab, PO, Before Dinner, # 90 tab, 0 Refill(s) Active 01/10/2016 [facility] nt doxycycline hyclate 100 mg oral tablet 100 mg = 1 tab, PO, Q12H, X 6 week, # 84 tab, 0 Refill(s) Active 01/10/2016 [facility] nter avibactam / Ceftazidime Notes: (Same as: Avycaz) Non- formulary No Longer Active 01/09/2016 [facility] Methadone Notes: (Same as: Dol ophine) No Longer Active 01/09/2016 [facility] normal saline 0.9% IV 1,000 mL 1,000 mL, Rate: 75 ml/hr, Infuse over: 13.3 hr, Route: IV, Dosing Weight 70.2 kg, Total Volume: 1,000, Start date: 01/07/16 12:44:00 CDT, Duration: 30 day, Stop date: 02/06/16 12:43:00 CDT No Longer Active 01/07/2016 [facility] Miralax Notes: Dissolve in 8 o z of water or juice. (Same as: Miralax) No Longer Active 01/07/2016 [facility] avibactam / Ceftazidime Notes: (Same as: Avycaz) Non- formulary No Longer Active 01/06/2016 [facility] Magnesium Sulfate Notes: WASTE : F/P - Sink; E - Municipal Trash Bin Inactive 01/06/2016 [facility] Oxycontin Notes: Do not crush or chew. (Same as: OxyContin) No Longer Active 01/05/2016 [facility] Magnesium Oxide Notes: (Same a s: Mag-Ox 400) Magnesium oxide [id number] elemental magnesium Dose=____mg magnesium oxide (___mg elemental magnesium) Inactive 01/05/2016 [facility] Oxycontin Notes: Do not crush or chew. (Same as: OxyContin) No Longer Active 01/04/2016 [facility] Lyrica Notes: (Same as: Lyrica) No Longer Active 01/04/2016 [facility] Oxycodone Hydrochloride 5 MG Oral Tablet Notes: (Same as: Roxicodone) No Longer Active 01/03/2016 [facility] nter heparin Notes: porcine heparin No Longer Active 01/03/2016 [facility] colistimethate + Sodium Chloride 0.9% IV 100 mL Notes: (Same As: Coly-Mycin) No Longe r Active 01/03/2016 [facility] nter Oxycodone Hydrochloride 5 MG Oral Tablet Notes: (Same as: Roxicodone) Inactive 01/03/2016 [facility] Gentamicin Sulfate (FDC) Notes : TIME CRITICAL MEDICATION (Same as Garamycin) Inactive 01/03/2016 [facility] cefepime 1 gm, Route: IVPB, AB XQ12H, Dosing Weight 70.2, kg, (CrCl 30 - 49 ml/min), Start date: 01/03/16 11:00:00 CDT, Duration: 30 day, Stop date: 02/01/16 23:00:00 CDT Inactive 01/03/2016 [facility] nter Magnesium Sulfate Notes: WASTE : F/P - Sink; E - Municipal Trash Bin Inactive 01/03/2016 [facility] Docusate Sodium 50 MG / sennosides, FDC 8.6 MG Oral Tablet Notes: (Same as Senokot-S) Equiv. to Kareen-Colace. No Longer Active 01/03/2016 [facility] Oxycontin Notes: Do not crush or chew. (Same as: OxyContin) No Longer Active 01/03/2016 [facility] Amitriptyline Notes: (Same as: Elavil) No Longer Active 01/03/2016 [facility] Alprazolam 1 MG Oral Tablet [Xanax] Notes: With food or milk (Same as: Xanax) No Longe r Active 01/02/2016 [facility] nter Docusate Sodium 50 MG / sennosides, FDC 8.6 MG Oral Tablet Notes: (Same as Senokot-S) Equiv. to Kareen-Colace. No Longer Active 01/01/2016 [facility] pantoprazole Notes: Tablet miles uld not be chewed or crushed. (Same as: Protonix) N o Longer Active 01/01/2016 [facility] nter meropenem 1,000 mg, Route: IV, Q8H, Dosing Weight 70.2, kg, Start date: 01/01/16 16:00:00 CDT, Duration: 30 day, Stop date: 01/31/16 8:00:00 CDT Inactive 01/01/2016 [facility] Oxycodone Hydrochloride 5 MG Oral Tablet Notes: (Same as: Roxicodone) No Longer Active 01/01/2016 [facility] nter Oxycodone Hydrochloride 5 MG Oral Tablet Notes: (Same as: Roxicodone) No Longer Active 01/01/2016 [facility] nter amitriptyline 100 mg oral tablet 100 mg = 1 tab, PO, Bedtime, 0 Refill(s) Active 01/01/2016 [facility] Alprazolam 1 MG Oral Tablet [Xanax] 1 mg = 1 tab, PO, BID, 0 Refill(s) Active 01/01/2016 [facility] Acetaminophen 325 MG / Hydrocodone Micheal trate 10 MG Oral Tablet [[place] 10/325] 1 tab, PO, Q4H, PRN for pain, 0 Refill(s ) No Longer Active 01/01/2016 [facility] meropenem + Sodium Chloride 0.9% IV 100 mL Notes: Same as Merrem MEDICATION WASTE Product Size: 500 mg Product Wasted: ___ mg Inactive 01/01/2016 [facility] meropenem 1,000 mg, Route: IV, Q8H, Dosing Weight 65.909, kg, Start date: 01/01/16 0:58:00 CDT, Duration: 30 day, Stop date: 01/31/16 0:00:00 CDT Inactive 01/01/2016 [facility] normal saline 0.9% IV 1,000 mL 1,000 mL, Rate: 100 ml/hr, Infuse over: 10 hr, Route: IV, Dosing Weight 65.909 kg, Total Volume: 1,000, Start date: 01/01/16 0:56:00 CDT, Duration: 30 day, Stop date: 01/31/16 0:55:00 CDT No Longer Active 01/01/2016 [facility] Oxycodone Hydrochloride 5 MG Oral Tablet Notes: (Same as: Roxicodone) Inactive 01/01/2016 [facility] Dilaudid Notes: Same as: Dilau did No Longer Active 01/01/2016 [facility] Sodium Chloride 0.154 MEQ/ML Injectable Solution 1,000 mL, 1,000 ml/hr, Infuse Over: 1 hr, Route: IV, 1,000, Drug form: INJ, ONCE, Priority: STAT, Dosing Weight 65.909 kg, Start date: 12/31/15 21:56:00 CDT, Duration: 1 doses or times, Stop date: 12/31/15 21:56:00 CDT Inactive 01/01/2016 [facility] Iohexol Notes: (same as:Omnipa que 350). WASTE: F/P - Black; E - Municipal Trash Bin Inactive 01/01/2016 [facility] nter Vancomycin 2001 mg: infuse ov er 2.5 hours MEDICATION WASTE Product Size: 1000 mg Product Wasted: 0 mg Inactive 01/01/2016 [facility] Morphine Notes: (Same as:MORPh ine Sulfate) Inactive 01/01/2016 [facility] Sodium Chloride 0.154 MEQ/ML Injectable Solution 2,000 mL, 2000 ml/hr, Infuse Over: 1 hr, Route: IV, 2,000, Drug form: INJ, ONCE, Priority: STAT, Dosing Weight 65.909 kg, Start date: 12/31/15 19:38:00 CDT, Duration: 1 doses or times, Stop date: 12/31/15 19:38:00 CDT Inactive 01/01/2016 [facility] collagenase topical 250 units/g ointment 1 appl, TOP, Daily, # 30 gm, 0 Refill(s) Active 10/20/2015 [facility] Acetaminophen 300 MG / Codeine Phosphate 30 MG Oral Tablet [Tylenol with Codeine #3] 1 tab, PO, Q4H, PRN Pain, X 7 day, # 42 tab, 0 Refill(s) Active 10/20/2015 [facility] COLLAGENASE Notes: (Same As: S antyl) Inactive 10/20/2015 [facility] Dilaudid Notes: (Same as: Dila udid) No Longer Active 10/20/2015 [facility] acetaminophen-hydrocodone 325 mg-10 mg oral tablet Notes: Do not exceed 4gm/day of acetaminophen. (Same as: [place] 325/10) No Longer Active 10/20/2015 [facility] Levofloxacin Notes: Do not giv e w/antacids, dairy pdt & minerals Take 1 hr before or 2 hr after dairy products No Longer Active 10/19/2015 [facility] ceftazidime-avibactam + Sodium Chloride 0.9% IV 100 mL Notes: (Same as: Avycaz) Non-formulary No Longer Active 10/19/2015 [facility] docusate sodium 50 mg oral capsule Notes: (Same as: Colace) (Do Not Crush) No Longer Active 10/19/2015 [facility] Alprazolam 2 MG Oral Tablet 2 mg = 1 tab, PO, TID, PRN Anxiety, 0 Refill(s) No Longer Active 10/19/2015 [facility] avibactam / Ceftazidime 2.5 gm , IV, Q8H, 0 Refill(s) No Longer Active 10/19/2015 [facility] gabapentin 100 mg, PO, Q8H, 0 Refill(s) No Longer Active 10/19/2015 [facility] Hydromorphone Hydrochloride 4 MG Oral Tablet [Dilaudid ] 2 tabs, PO, Q6H, PRN Pain Score 7-10, 0 Refill(s) No Longer Active 10/19/2015 [facility] Acetaminophen 325 MG / Oxycodone Hydroch loride 10 MG Oral Tablet 2 tab, PO, Q6H, PRN for pain, 0 Refill(s) No Longer Active 10/19/2015 [facility] baclofen 10 mg oral tablet 10 mg = 1 tab, PO, Q6H, 0 Refill(s) No Longer Active 10/19/2015 [facility] Amitriptyline 50 mg, PO, Bedti me, 0 Refill(s) No Longer Active 10/19/2015 [facility] Lidocaine Viscous 2% mucous membrane solution Notes: (Same as: Xylocaine Viscous) N o Longer Active 10/19/2015 [facility] pantoprazole Notes: Tablet miles uld not be chewed or crushed. (Same as: Protonix) N o Longer Active 10/19/2015 [facility] Docusate Sodium 50 MG / sennosides, FDC 8.6 MG Oral Tablet 1 tab, Route: PO, Drug Form: TAB, Dosing Weight 72.727, kg, BID, PRN Constipation, Start date: 10/19/15 16:29:00, Duration: 30 day, Stop date: 11/18/15 16:28:00 Inactive 10/19/2015 [facility] acetaminophen 325 mg oral tablet Notes: Do not exceed 4 gm/day. (Same as: Tylenol) No Longer Active 10/19/2015 [facility] Sodium Chloride 0.154 MEQ/ML Inhalant Solution Notes: (Same as: BD Posiflush) No Longer Active 10/19/2015 [facility] senna 8.6 mg oral tablet Notes : (Same as: Senokot) No Longer Active 10/19/2015 [facility] heparin Notes: porcine heparin No Longer Active 10/19/2015 [facility] Ondansetron Notes: (Same as: Kory davis) MEDICATION WASTE Product Size: 4 mg Product Wasted: ___ mg No Longer Active 10/19/2015 [facility] Docusate Notes: (Same as: Cola ce) (Do Not Crush) No Longer Active 10/19/2015 [facility] Ativan 1 mg, Route: IVP, Drug form: INJ, ONCE, Dosing Weight 72.727, kg, PRN Anxiety, Start date: 10/19/15 4:44:00 Inactive 10/19/2015 [facility] Enoxaparin Notes: (Same as: Lo venox) Inactive 10/19/2015 [facility] Sodium Chloride 0.0769 MEQ/ML Injectable Solution 1,000 mL, Rate: 125 ml/hr, Infuse over: 8 hr, Route: IV, Dosing Weight 72.727 kg, Total Volume: 1,000, Start date: 10/19/15 2:30:00, Duration: 30 day, Stop date: 11/18/15 2:29:00 Inactive 10/19/2015 [facility] Saline Flush 0.9% Notes: (Same as: BD Posiflush) Inactive 10/19/2015 [facility] Ondansetron Notes: (Same as: Kory davis) MEDICATION WASTE Product Size: 4 mg Product Wasted: ___ mg Inactive 10/19/2015 [facility] Acetaminophen Notes: Do not ex ceed 4 gm/day. (Same as: Tylenol) Inactive 10/19/2015 [facility] Morphine Notes: (Same as:MORPh ine Sulfate) Inactive 10/19/2015 [facility] avibactam / Ceftazidime Notes: (Same as: Avycaz) Non- formulary Inactive 10/19/2015 [facility] Sodium Chloride 0.154 MEQ/ML Injectable Solution 1,000 mL, 1,000 ml/hr, Infuse Over: 1 hr, Route: IV, 1,000, Drug form: INJ, ONCE, Priority: STAT, Dosing Weight 72.727 kg, Start date: 10/19/15 0:57:00, Duration: 1 doses or times, Stop date: 10/19/15 0:57:00 Inactive 10/19/2015 [facility] avibactam / Ceftazidime 2.5 gm , Route: IV, Q8H, Dosing Weight 72.727, kg, Start date: 10/19/15 0:00:00, Stop date: 10/20/15 16:00:00 Inactive 10/19/2015 [facility] Epoetin Geetha Notes: (Same as: Procrit) epoetin geetha 10,000 unit/1 ml VL For non-dialysis use only. WASTE: F/P - Red; E -Red MEDICATION WASTE Product Size: 97687 unit Product Wasted: ___ unit Inactive 10/18/2015 [facility] Therapeutic Nutrition 24 gm packet Notes: (Same as: Levi Jessie) No Longer Active 10/17/2015 [facility] pantoprazole Notes: Tablet miles uld not be chewed or crushed. (Same as: Protonix) N o Longer Active 10/17/2015 [facility] Alprazolam 1 MG Oral Tablet No tru: With food or milk (Same as: Xanax) No Longer Active 10/17/2015 [facility] acetaminophen-hydrocodone 325 mg-10 mg oral tablet Notes: Do not exceed 4gm/day of acetaminophen. (Same as: [place] 325/10) No Longer Active 10/17/2015 [facility] avibactam / Ceftazidime Notes: (Same as: Avycaz) Non- formulary No Longer Active 10/17/2015 [facility] Baclofen Notes: (Same As: Fitz esal) No Longer Active 10/17/2015 [facility] gabapentin 100 MG Oral Capsule Notes: (Same as: Neurontin) No Longer Active 10/17/2015 [facility] oxyCODONE 10 mg extended release Notes: Do not crush or chew. (Same as: OxyContin) No Longer Active 10/17/2015 [facility] Amitriptyline Notes: (Same as: Elavil) No Longer Active 10/17/2015 [facility] Levofloxacin Notes: Do not giv e w/antacids, dairy pdt & minerals Take 1 hr before or 2 hr after dairy products Inactive 10/17/2015 [facility] Oxycodone Hydrochloride 5 MG Oral Tablet 30 mg, Route: PO, Drug form: TAB, Q6H, Dosing Weight 68.182, kg, PRN Pain Score 7-10, Start date: 10/16/15 18:51:00, Duration: 30 day, Stop date: 11/15/15 18:50:00 Inactive 10/16/2015 [facility] Dilaudid Notes: (Same as: Dila udid) No Longer Active 10/16/2015 [facility] Senokot Notes: (Same as: Senok ot) No Longer Active 10/16/2015 [facility] docusate sodium 50 mg oral capsule Notes: (Same as: Colace) (Do Not Crush) No Longer Active 10/16/2015 [facility] Senokot Notes: (Same as: Senok ot) Inactive 10/16/2015 [facility] docusate sodium 50 mg oral capsule Notes: (Same as: Colace) (Do Not Crush) Inactiv e 10/16/2015 [facility] Sodium Chloride 0.154 MEQ/ML Inhalant Solution Notes: (Same as: BD Posiflush) No Longer Active 10/16/2015 [facility] Ondansetron Notes: (Same as: Kory davis) MEDICATION WASTE Product Size: 4 mg Product Wasted: ___ mg No Longer Active 10/16/2015 [facility] acetaminophen 325 mg oral tablet Notes: Do not exceed 4 gm/day. (Same as: Tylenol) No Longer Active 10/16/2015 [facility] Docusate Sodium 50 MG / sennosides, FDC 8.6 MG Oral Tablet 1 tab, Route: PO, Drug Form: TAB, Dosing Weight 68.182, kg, BID, PRN Constipation, Start date: 10/16/15 18:13:00, Duration: 30 day, Stop date: 04/13/16 18:12:00 Inactive 10/16/2015 [facility] Acetaminophen 325 MG / Hydrocodone Micheal trate 10 MG Oral Tablet Notes: Do not exceed 4gm/day of acetamin ophen. (Same as: [place] 325/10) Inactive 10/16/2015 [facility] senna 8.6 mg oral tablet 8.6 m g, 1 tab, Route: PO, Drug Form: TAB, Dosing Weight 68.182, kg, BID, PRN Constipation, Start date: 10/16/15 18:11:00, Duration: 30 day, Stop date: 11/15/15 18:10:00 Inactive 10/16/2015 [facility] Lovenox Notes: (Same as: Loven ox) No Longer Active 10/16/2015 [facility] Levi 24 gm packet 1 pkt, Rout e: PO, Dosing Weight 69.574, kg, BID, Start date: 10/16/15 17:00:00, Duration: 30 day, Stop date: 11/15/15 9:00:00 Inactive 10/16/2015 [facility] hydromorphone 2 mg oral tablet 4 mg = 2 tab, PO, Q6H, PRN Pain Score 7-10, 0 Refill(s) On Hold 10/16/2015 [facility] Alprazolam 1 MG Oral Tablet 2 mg = 2 tab, PO, TID, 0 Refill(s) On Hold 10/16/2015 [facility] amitriptyline 50 mg oral tablet 50 mg = 1 tab, PO, Bedtime, 0 Refill(s) On Hold 10/16/2015 [facility] Lidocaine Viscous 2% mucous membrane solution 0 Refill(s) On Hold 10/16/2015 [facility] gabapentin 100 MG Oral Capsule 100 mg = 1 cap, PO, Q8H, 0 Refill(s) On Hold 10/16/2015 [facility] Sodium Chloride 0.154 MEQ/ML Inhalant Solution 0.09 gm = 10 mL, IVP, PRN, PRN Line Flush, 0 Refill(s) On Hold 10/16/2015 [facility] epoetin geetha 10,000 units/mL preservativ e-free injectable solution 7,000 unit = 0.7 mL, SUB-Q, Q-M-W-F, 0 R efill(s) On Hold 10/16/2015 [facility] enoxaparin 40 mg/0.4 mL subcutaneous solution 40 mg = 0.4 mL, SUB-Q, [id number], 0 Refill(s) On Hold 10/16/2015 [facility] senna 8.6 mg oral tablet 8.6 m g = 1 tab, PO, BID, PRN Constipation, 0 Refill(s) On Hold 10/16/2015 [facility] ondansetron 2 mg/mL injectable solution 4 mg = 2 mL, IVP, Q6H, PRN Nausea & Vomiting, 0 Refill(s) On Hold 10/16/2015 [facility] avibactam 0.232695 MG/ML / Ceftazidime 0 .493246 MG/ML Injectable Solution [Avycaz] 2.5 gm =, IV, Q8H, # 10 bag, 0 Refill(s) , other On Hold 10/16/2015 [facility] Acetaminophen 325 MG / Hydrocodone Micheal trate 10 MG Oral Tablet 2 tab, PO, Q6H, PRN Other -See Comment, 0 Refill(s) On Hold 10/16/2015 [facility] levofloxacin 750 mg oral tablet 750 mg = 1 tab, PO, [id number], 0 Refill(s) On Hold 10/16/2015 [facility] COLLAGENASE 1 appl, TOP, Daily , 0 Refill(s) On Hold 10/16/2015 [facility] baclofen 20 mg oral tablet 10 mg = 0.5 tab, PO, Q6H, 0 Refill(s) On Hold 10/16/2015 [facility] acetaminophen 325 mg oral tablet 100.4 F, 0 Refill(s) On Hold 10/16/2015 [facility] hydromorphone 100 mg/100 mL-NaCl 0.9% in travenous solution 1 mg = 1 mL, IVP, Q6H, PRN Other -See Co mment, 0 Refill(s) On Hold 10/16/2015 [facility] lactobacillus rhamnosus GG PO, Daily, 0 Refill(s) On Hold 10/16/2015 [facility] pantoprazole 40 mg oral enteric coated tablet 40 mg = 1 tab, PO, Before Dinner, 0 Refill(s) On Hold 10/16/2015 [facility] Levaquin Notes: Do not give w/ antacids, dairy pdt & minerals Take 1 hr before or 2 hr after dairy products No Longer Active 10/13/2015 [facility] avibactam / Ceftazidime Notes: (Same as: Avycaz) Non- formulary No Longer Active 10/13/2015 [facility] Procrit Notes: (Same as: Procr it) epoetin geetha 10,000 unit/1 ml VL For non-dialysis use only. WASTE: F/P - Red; E -Red MEDICATION WASTE Product Size: 99901 unit Product Wasted: ___ unit No Longer Active 10/11/2015 [facility] colistimethate + Sodium Chloride 0.9% IV 100 mL Notes: (Same As: Coly-Mycin) Inactive 10/11/2015 [facility] Amikacin Notes: TIME CRITICAL MEDICATION (Same as: Amikin) MEDICATION WASTE Product Size: 1000 mg Product Wasted: ___ mg Inactive 10/11/2015 [facility] Sodium Chloride 0.9% IV 250 mL , Route: IVPB, Start date: 10/10/15 16:19:00, Duration: 30 day, Stop date: 11/09/15 17:18:00, PRN Line Flush No Longer Active 10/10/2015 [facility] BD Normal Saline Flush Notes: (Same as: BD Posiflush) No Longer Active 10/10/2015 [facility] Doxycycline Notes: (Same as: V ibramycin) No Longer Active 10/10/2015 [facility] Sodium Chloride 0.9% (titrate) 250 mL 250 mL, Rate: solid propellant processor for use with blood product administration, Dosing Weight 69.574, kg, Route: IV, Total Volume: 250, Start Date: 10/10/15 9:41:00, Duration: 30 day, Stop date: 11/09/15 9:40:00, Replace Every: 24 hr No Longer Active 10/10/2015 [facility] Sodium Chloride 0.9% (titrate) 250 mL 250 mL, Rate: solid propellant processor for use with blood product administration, Dosing Weight 69.574, kg, Route: IV, Total Volume: 250, Start Date: 10/10/15 9:13:00, Duration: 30 day, Stop date: 11/09/15 9:12:00, Replace Every: 24 hr Inactive 10/10/2015 [facility] Naloxone Notes: Same as Narcan Inactive 10/09/2015 [facility] Promethazine 6.25 mg, Route: I VPB, ONCE, Dosing Weight 69.574, kg, PRN Nausea & Vomiting, Start date: 10/09/15 14:52:00 Inactive 10/09/2015 [facility] Ondansetron Notes: (Same as: Kory davis) MEDICATION WASTE Product Size: 4 mg Product Wasted: ___ mg Inactive 10/09/2015 [facility] Hydromorphone 0.5 mg, 0.5 mL, Route: IVP, Drug form: INJ, Q5Min, Dosing Weight 69.574, kg, PRN Pain Score 7-10, Start date: 10/09/15 14:52:00, Duration: 4 doses or times, Stop date: Limited # of times Inactive 10/09/2015 [facility] Meperidine Notes: (Same As: De merol) Inactive 10/09/2015 [facility] Morphine Notes: (Same as:MORPh ine Sulfate) Inactive 10/09/2015 [facility] Flumazenil Notes: (Same as: Ro mazicon) Inactive 10/09/2015 [facility] Hydralazine Notes: (Same as: A presoline) Push over 5 minutes Inactive 10/09/2015 [facility] Metoprolol Notes: (Same as: Lo pressor) Push over 2 minutes Inactive 10/09/2015 [facility] Atropine Notes: MEDICATION WASTE Product Size: 0.4 mg Product Wasted: ___ mg Inactive 10/09/2015 [facility] Cefazolin Notes: Same as: Ancef No Longer Active 10/09/2015 [facility] Maxipime + Sodium Chloride 0.9% IV 100 mL Notes: (Same As: Maxipime) MEDICATION WASTE Product Size: 1000 mg Product Wasted: ___ mg No Longer Active 10/08/2015 [facility] colistimethate + Sodium Chloride 0.9% IV 100 mL Notes: (Same As: Coly-Mycin) No Longe r Active 10/08/2015 [facility] naloxone Notes: Same as Narcan Inactive 10/07/2015 [facility] Lovenox Notes: (Same as: Loven ox) No Longer Active 10/07/2015 [facility] Acetaminophen 1,000 mg, Route: IV, ONCE, Dosing Weight 69.574, kg, Start date: 10/06/15 15:13:00, Stop date: 10/06/15 15:13:00 Inactive 10/06/2015 [facility] Ondansetron Notes: (Same as: Kory davis) MEDICATION WASTE Product Size: 4 mg Product Wasted: ___ mg Inactive 10/06/2015 [facility] Flumazenil Notes: (Same as: Ro mazicon) Inactive 10/06/2015 [facility] Naloxone Notes: Same as Narcan Inactive 10/06/2015 [facility] Hydromorphone 0.5 mg, 0.5 mL, Route: IVP, Drug form: INJ, Q5Min, Dosing Weight 69.574, kg, PRN Pain Score 7-10, Start date: 10/06/15 14:50:00, Duration: 4 doses or times, Stop date: Limited # of times Inactive 10/06/2015 [facility] Morphine Notes: (Same as:MORPh ine Sulfate) Inactive 10/06/2015 [facility] Sodium Chloride 0.154 MEQ/ML Injectable Solution 1,000 mL, Rate: 50 ml/hr, Infuse over: 20 hr, Route: IV, Dosing Weight 69.574 kg, Total Volume: 1,000, Start date: 10/06/15 14:50:00, Duration: 30 day, Stop date: 11/05/15 14:49:00 Inactive 10/06/2015 [facility] Xanax Notes: With food or milk (Same as: Xanax) No Longer Active 10/06/2015 [facility] nutritional supplement Notes: (Same as: Levi Jessie) No Longer Active 10/05/2015 [facility] baclofen Notes: (Same As: Fitz esal) No Longer Active 10/05/2015 [facility] gabapentin 100 MG Oral Capsule Notes: (Same as: Neurontin) No Longer Active 10/03/2015 [facility] Dilaudid Notes: (Same as: Dila udid) No Longer Active 10/03/2015 [facility] Promethazine 6.25 mg, Route: I VPB, ONCE, Dosing Weight 69.574, kg, PRN Nausea & Vomiting, Start date: 10/02/15 10:15:00 Inactive 10/02/2015 [facility] Naloxone Notes: Same as Narcan Inactive 10/02/2015 [facility] Ondansetron Notes: (Same as: Kory davis) MEDICATION WASTE Product Size: 4 mg Product Wasted: ___ mg Inactive 10/02/2015 [facility] Morphine Notes: (Same as:MORPh ine Sulfate) Inactive 10/02/2015 [facility] Atropine Notes: MEDICATION WASTE Product Size: 0.4 mg Product Wasted: ___ mg Inactive 10/02/2015 [facility] Flumazenil Notes: (Same as: Ro mazicon) Inactive 10/02/2015 [facility] Meperidine Notes: (Same As: De merol) Inactive 10/02/2015 [facility] Hydromorphone 0.5 mg, 0.5 mL, Route: IVP, Drug form: INJ, Q5Min, Dosing Weight 69.574, kg, PRN Pain Score 7-10, Start date: 10/02/15 10:15:00, Duration: 4 doses or times, Stop date: Limited # of times Inactive 10/02/2015 [facility] Metoprolol Notes: (Same as: Lo pressor) Push over 2 minutes Inactive 10/02/2015 [facility] Hydralazine Notes: (Same as: A presoline) Push over 5 minutes Inactive 10/02/2015 [facility] Epogen 10,000 unit, Route: SUB -Q, Q-M-W-F, Dosing Weight 69.574, kg, Start date: 10/02/15 9:00:00, Duration: 30 day, Stop date: 10/30/15 9:00:00 No Longer Active 10/02/2015 [facility] 1/2NS + KCL 20mEq/L 1000ml (Premix) 1,000 mL Notes: PREMIX IV - Do Not Alter WASTE: F/P - Sink; E - Municipal Trash Bin No Longer Active 10/02/2015 [facility] Sodium Chloride 0.45% IV 1,000 mL 1,000 mL, Rate: 125 ml/hr, Infuse over: 8 hr, Route: IV, Dosing Weight 69.574 kg, Total Volume: 1,000, Start date: 10/01/15 19:38:00, Duration: 30 day, Stop date: 10/31/15 19:37:00 No Longer Active 10/02/2015 [facility] Saline Flush 0.9% Notes: (Same as: BD Posiflush) No Longer Active 10/01/2015 [facility] Lovenox Notes: (Same as: Loven ox) No Longer Active 10/01/2015 [facility] Kayexalate Notes: (sodium poly styrene sulfonate 15 gm/60 ml SOLITARIO) Shake well before use. (Same as: Kayexalate, SPS) Inactive 10/01/2015 [facility] Kayexalate Notes: (sodium poly styrene sulfonate 15 gm/60 ml SOLITARIO) Shake well before use. (Same as: Kayexalate, SPS) Inactive 09/30/2015 [facility] hydromorphone 1 mg, 1 mL, Rout e: IVP, Drug form: INJ, Q6H, PRN Other -See Comment, Start date: 09/28/15 17:21:00, Duration: 30 day, Stop date: 10/28/15 17:20:00 N o Longer Active 09/28/2015 [facility] acetaminophen-hydrocodone 325 mg-10 mg oral tablet Notes: Do not exceed 4gm/day of acetaminophen. (Same as: [place] 325/10) No Longer Active 09/28/2015 [facility] lidocaine topical Notes: (Same as: Xylocaine Viscous) No Longer Active 09/28/2015 [facility] Levi Nutrition Supplement Juv en Nutrition Supplement, 1 pkg, Drug form: MISC, Route: PO, BID, 09/28/15 11:00:00, Duration: 30 day, Stop date: 10/28/15 9:00:00 No Longer Active 09/28/2015 [facility] acetaminophen-hydrocodone 325 mg-10 mg oral tablet Notes: Do not exceed 4gm/day of acetaminophen. (Same as: [place] 325/10) No Longer Active 09/27/2015 [facility] nutritional supplement Notes: (Same as: Beneprotein) No Longer Active 09/27/2015 [facility] Fluconazole Notes: (Same as: D iflucan) No Longer Active 09/26/2015 [facility] Tylenol Notes: Do not exceed 4 gm/day. (Same as: Tylenol) No Longer Active 09/25/2015 [facility] lactobacillus acidophilus 1 ta b, Route: PO, Drug Form: TAB, Dosing Weight 69.574, kg, Daily, Start date: 09/23/15 9:00:00, Duration: 30 day, Stop date: 10/22/15 9:00:00 No Longer Active 09/23/2015 [facility] lactobacillus rhamnosus GG Not es: Same as Culturelle No Longer Active 09/23/2015 [facility] Dilaudid Notes: (Same as: Dila udid) No Longer Active 09/22/2015 [facility] OxyIR Notes: (Same as: Roxicod one) No Longer Active 09/22/2015 [facility] Xanax Notes: With food or milk (Same as: Xanax) No Longer Active 09/22/2015 [facility] Santyl Notes: (Same As: Santyl) No Longer Active 09/21/2015 [facility] Dilaudid 1 mg, 1 mL, Route: IV , Drug form: INJ, Q3H, Dosing Weight 69.574, kg, PRN Other -See Comment, Start date: 09/18/15 15:44:00, Stop date: 10/18/15 15:43:00 No Longer Active 09/18/2015 [facility] Albuterol 0.83 MG/ML Inhalant Solution Notes: SEE RT DOCUMENTATION (Same as: Proventil) Inactive 09/18/2015 [facility] pantoprazole Notes: Tablet miles uld not be chewed or crushed. (Same as: Protonix) N o Longer Active 09/15/2015 [facility] Lovenox Notes: (Same as: Loven ox) No Longer Active 09/15/2015 [facility] Buspirone Notes: (Same As: BuS par) No Longer Active 09/15/2015 [facility] COLLAGENASE Notes: (Same As: S antyl) No Longer Active 09/15/2015 [facility] multivitamin Notes: (Same as:T nickolas) WASTE: F/P - Black; E - Municipal Trash Bin Take with food. No Longer Active 09/15/2015 [facility] Baclofen Notes: (Same As: Fitz esal) No Longer Active 09/15/2015 [facility] Alprazolam 2 MG Oral Tablet No tru: With food or milk (Same as: Xanax) No Longer Active 09/15/2015 [facility] Mirtazapine Notes: (Same as:Re elier) No Longer Active 09/15/2015 [facility] Amitriptyline Notes: (Same as: Elavil) No Longer Active 09/15/2015 [facility] Fluconazole Notes: (Same as: D iflucan) Inactive 09/15/2015 [facility] Senokot Notes: (Same as: Senok ot) No Longer Active 09/15/2015 [facility] docusate sodium 50 mg oral capsule Notes: (Same as: Colace) (Do Not Crush) No Longer Active 09/15/2015 [facility] Docusate Sodium 50 MG / sennosides, FDC 8.6 MG Oral Tablet 1 tab, Route: PO, Drug Form: TAB, Dosing Weight 69.574, kg, BID, PRN Constipation, Start date: 09/14/15 19:28:00, Duration: 30 day, Stop date: 10/14/15 19:27:00 Inactive 09/15/2015 [facility] Acetaminophen 325 MG / Hydrocodone Micheal trate 5 MG Oral Tablet Notes: (Same as: [place] 325/5) Do not ex ceed 4gm/day of acetaminophen. No Longer Active 09/15/2015 [facility] Xanax Notes: With food or milk (Same as: Xanax) Inactive 09/14/2015 [facility] Zyvox Notes: Protect from ligh t. (Same as: Zyvox) No Longer Active 09/14/2015 [facility] Alprazolam 2 MG Oral Tablet 2 mg = 1 tab, PO, BID, 0 Refill(s) No Longer Active 09/13/2015 [facility] linezolid Notes: (Same as: Zyv ox) Inactive 09/13/2015 [facility] meropenem Notes: Same as Barak jamil MEDICATION WASTE Product Size: 500 mg Product Wasted: ___ mg No Longer Active 09/13/2015 [facility] Saline Flush 0.9% Notes: (Same as: BD Posiflush) No Longer Active 09/13/2015 [facility] Morphine Notes: (Same as:MORPh ine Sulfate) No Longer Active 09/13/2015 [facility] Ondansetron Notes: (Same as: Kory davis) MEDICATION WASTE Product Size: 4 mg Product Wasted: ___ mg No Longer Active 09/13/2015 [facility] Sodium Chloride 0.154 MEQ/ML Injectable Solution 1,000 mL, Rate: 100 ml/hr, Infuse over: 10 hr, Route: IV, Dosing Weight 68.182 kg, Total Volume: 1,000, Start date: 09/13/15 8:36:00, Duration: 30 day, Stop date: 10/13/15 8:35:00 No Longer Active 09/13/2015 [facility] Protonix Notes: Tablet should not be chewed or crushed. (Same as: Protonix) Inactive 09/12/2015 [facility] Diflucan Notes: (Same as: Difl ucan) Inactive 09/12/2015 [facility] Lovenox Notes: (Same as: Loven ox) Inactive 09/12/2015 [facility] Santyl Notes: (Same As: Santyl) Inactive 09/12/2015 [facility] multivitamin Notes: (Same as:Shantell olmos) WASTE: F/P - Black; E - Municipal Trash Bin Take with food. Inactive 09/12/2015 [facility] BuSpar Notes: (Same As: BuSpar) Inactive 09/12/2015 [facility] Docusate Notes: (Same as: Cola ce) (Do Not Crush) Inactive 09/12/2015 [facility] Ondansetron Notes: (Same as: Kory davis) MEDICATION WASTE Product Size: 4 mg Product Wasted: ___ mg Inactive 09/12/2015 [facility] baclofen Notes: (Same As: Fitz esal) Inactive 09/12/2015 [facility] meropenem + Sodium Chloride 0.9% IV 100 mL Notes: Same as Merrem MEDICATION WASTE Product Size: 500 mg Product Wasted: ___ mg No Longer Active 09/12/2015 [facility] amitriptyline Notes: (Same as: Elavil) No Longer Active 09/12/2015 [facility] Remeron Notes: (Same as:Remero n) No Longer Active 09/12/2015 [facility] Zyvox Notes: Protect from ligh t. (Same as: Zyvox) No Longer Active 09/12/2015 [facility] Amitriptyline Notes: (Same as: Elavil) Inactive 09/12/2015 [facility] Senokot Notes: (Same as: Senok ot) No Longer Active 09/12/2015 [facility] docusate sodium 50 mg oral capsule Notes: (Same as: Colace) (Do Not Crush) No Longer Active 09/12/2015 [facility] acetaminophen-hydrocodone 325 mg-5 mg oral tablet Notes: (Same as: [place] 325/5) Do not exceed 4gm/day of acetaminophen. No Longer Active 09/12/2015 [facility] Xanax Notes: With food or milk (Same as: Xanax) No Longer Active 09/12/2015 [facility] Baclofen Notes: (Same As: Fitz esal) Inactive 09/12/2015 [facility] Buspirone Notes: (Same As: BuS par) Inactive 09/11/2015 [facility] meropenem 500 mg intravenous injection 500 mg, IV, Q6H, X 10 day, # 28 bag, 0 Refill(s) No Longer Active 09/11/2015 [facility] pantoprazole Notes: Tablet miles uld not be chewed or crushed. (Same as: Protonix) Inactive 09/11/2015 [facility] Fluconazole Notes: (Same as: D iflucan) Inactive 09/11/2015 [facility] Senokot Notes: (Same as: Senok ot) Inactive 09/11/2015 [facility] docusate sodium 50 mg oral capsule Notes: (Same as: Colace) (Do Not Crush) Inactiv e 09/11/2015 [facility] Acetaminophen 325 MG / Hydrocodone Micheal trate 5 MG Oral Tablet 2 tab, PO, Q4H, PRN Pain Score 7-10, 0 Refill(s) Active 09/11/2015 [facility] linezolid 600 mg oral tablet 6 00 mg = 1 tab, PO, [id number], 0 Refill(s) Active 09/11/2015 [facility] Alprazolam 0.5 MG Oral Tablet 0.5 mg = 1 tab, PO, Q12H, PRN Anxiety, 0 Refill(s) No Longer Active 09/11/2015 [facility] mirtazapine 30 mg oral tablet 30 mg = 1 tab, PO, Bedtime, 0 Refill(s) Active 09/11/2015 [facility] Docusate Sodium 50 MG / sennosides, FDC 8.6 MG Oral Tablet 1 tab, Route: PO, Drug Form: TAB, Dosing Weight 65.909, kg, BID, PRN Constipation, Start date: 09/11/15 15:53:00, Duration: 30 day, Stop date: 10/11/15 15:52:00 Inactive 09/11/2015 [facility] Nicorette 4 mg gum Nicorette 4 mg gum, 4 mg, Drug form: MISC, Route: CHEW, BID, 09/11/15 3:00:00, Duration: 30 day, Stop date: 10/10/15 17:00:00 Inactive 09/11/2015 [facility] Zyvox Notes: Protect from ligh t. (Same as: Zyvox) No Longer Active 09/11/2015 [facility] Nicorette Notes: Non-Formulary Drug WASTE: F/P - P Waste Black; E - P Waste Black (Same as: Nicorette) No Longer Active 09/10/2015 [facility] Nicotine Notes: (Same as: Roney montague) "Remove old patch before application of new patch" WASTE: F/P - P Waste Black; E - P Waste Black Inactive 09/10/2015 [facility] Remeron Notes: (Same as:Remero n) No Longer Active 09/10/2015 [facility] Enoxaparin Notes: (Same as: Lo venox) No Longer Active 09/08/2015 [facility] Morphine Notes: (Same as:MORPh ine Sulfate) No Longer Active 09/08/2015 [facility] Flagyl Notes: (Same as: Flagyl ) Take with food/ avoid alcohol No Longer Active 09/08/2015 [facility] meropenem Notes: Same as Barak m MEDICATION WASTE Product Size: 500 mg Product Wasted: ___ mg No Longer Active 09/08/2015 [facility] Xanax Notes: With food or milk (Same as: Xanax) No Longer Active 09/07/2015 [facility] linezolid Notes: (Same as: Zyv ox) No Longer Active 09/07/2015 [facility] meropenem Notes: Same as Barak m MEDICATION WASTE Product Size: 500 mg Product Wasted: ___ mg Inactive 09/07/2015 [facility] Ondansetron Notes: (Same as: Z luisran) MEDICATION WASTE Product Size: 4 mg Product Wasted: ___ mg No Longer Active 09/07/2015 [facility] Docusate Notes: (Same as: Cola ce) (Do Not Crush) No Longer Active 09/07/2015 [facility] Morphine Notes: (Same as:MORPh ine Sulfate) No Longer Active 09/07/2015 [facility] Acetaminophen 325 MG / Hydrocodone Micheal trate 5 MG Oral Tablet Notes: (Same as: [place] 325/5) Do not ex ceed 4gm/day of acetaminophen. No Longer Active 09/07/2015 [facility] Acetaminophen Notes: Do not ex ceed 4 gm/day. (Same as: Tylenol) No Longer Active 09/07/2015 [facility] Acetaminophen 325 MG / Hydrocodone Micheal trate 10 MG Oral Tablet [[place] 10/325] 1 tab, Route: PO, Drug Form: TAB, Dosing Weight 65.909, kg, ONCE, PRN Pain Score 1-3, Start date: 09/07/15 3:44:00, Stop date: 10/07/15 3:43:00 Inactive 09/07/2015 [facility] normal saline 0.9% IV 2,000 mL 2,000 mL, Rate: 2,000 ml/hr, Infuse over: 1 hr, Route: IV, Dosing Weight 65.909 kg, Total Volume: 2,000, Priority: STAT, Start date: 09/07/15 0:08:00, Duration: 1 doses or times, Stop date: 09/07/15 1:07:00 Inactive 09/07/2015 [facility] Saline Flush 0.9% Notes: (Same as: BD Posiflush) No Longer Active 09/07/2015 [facility] oxyCONTIN Notes: Do not crush or chew. (Same as: OxyContin) Inactive 09/06/2015 [facility] Oxycontin Notes: Do not crush or chew. (Same as: OxyContin) Inactive 09/06/2015 [facility] Methadone Notes: (Same as: Dol ophine) Inactive 09/06/2015 [facility] meropenem + Sodium Chloride 0.9% IV 100 mL Notes: Same as Merrem MEDICATION WASTE Product Size: 500 mg Product Wasted: ___ mg Inactive 09/06/2015 [facility] tramadol 50 mg oral tablet Not es: Not to exceed 400mg/day. (Same As: Ultram) Inactive 09/04/2015 [facility] Nicorette Nicorette, Nicorette 4mg gum, Drug form: MISC, Route: PO, Q12H, PRN Other -See Comment, 09/03/15 15:12:00, Duration: 30 day, Stop date: 10/03/15 15:11:00 N o Longer Active 09/03/2015 [facility] Oxycontin Notes: Do not crush or chew. (Same as: OxyContin) No Longer Active 09/03/2015 [facility] Methadone Notes: (Same as: Dol ophine) No Longer Active 09/03/2015 [facility] Oxycontin Notes: Do not crush or chew. (Same as: OxyContin) No Longer Active 08/31/2015 [facility] Habitrol Notes: (Same as: Roney montague) "Remove old patch before application of new patch" WASTE: F/P - P Waste Black; E - P Waste Black No Longer Active 08/29/2015 [facility] remove patch Notes: Remove old patch before application of new patch. No Longer Active 08/28/2015 [facility] Dextrose 50% in Water IV 50 mL , Route: IVP, Start date: 08/26/15 19:35:00, Duration: 30 day, Stop date: 09/25/15 19:34:00, PRN Blood Glucose Results No Longer Active 08/27/2015 [facility] meropenem Notes: Same as Barak jamil MEDICATION WASTE Product Size: 500 mg Product Wasted: ___ mg No Longer Active 08/26/2015 [facility] Haldol Notes: (Same as: Haldol) No Longer Active 08/26/2015 [facility] Zyvox Notes: Protect from ligh t. (Same as: Zyvox) No Longer Active 08/26/2015 [facility] Protonix Notes: Tablet should not be chewed or crushed. (Same as: Protonix) No Longer Active 08/25/2015 [facility] Diflucan Notes: (Same as: Difl ucan) No Longer Active 08/25/2015 [facility] Duragesic-25 Notes: (Same as: Duragesic) Check for product integrity. Apply to intact skin "Remove old patch before application of new patch" No Longer Active 08/25/2015 [facility] Lovenox Notes: (Same as: Loven ox) No Longer Active 08/25/2015 [facility] Xanax Notes: With food or milk (Same as: Xanax) No Longer Active 08/25/2015 [facility] sodium hypochlorite topical 0.25% solution Notes: Note: half-strength = 0.25% sodium hypochlorite. No Longer Active 08/25/2015 [facility] multivitamin Notes: (Same as:Shantell olmos) WASTE: F/P - Black; E - Municipal Trash Bin Take with food. No Longer Active 08/25/2015 [facility] lactobacillus rhamnosus GG Not es: Same as Culturelle No Longer Active 08/25/2015 [facility] Santyl Notes: (Same As: Santyl) No Longer Active 08/25/2015 [facility] Dolophine Notes: (Same as: Dol ophine) No Longer Active 08/25/2015 [facility] meropenem + Sodium Chloride 0.9% IV 100 mL Notes: Same as Merrem MEDICATION WASTE Product Size: 500 mg Product Wasted: ___ mg Inactive 08/25/2015 [facility] Senokot Notes: (Same as: Senok ot) No Longer Active 08/25/2015 [facility] docusate sodium 50 mg oral capsule Notes: (Same as: Colace) (Do Not Crush) No Longer Active 08/25/2015 [facility] Zyvox Notes: Protect from ligh t. (Same as: Zyvox) Inactive 08/25/2015 [facility] Duragesic-25 Notes: (Same as: Duragesic) Check for product integrity. Apply to intact skin "Remove old patch before application of new patch" Inactive 08/25/2015 [facility] baclofen Notes: (Same As: Fitz esal) No Longer Active 08/25/2015 [facility] Nicorette Notes: Non-Formulary Drug WASTE: F/P - P Waste Black; E - P Waste Black (Same as: Nicorette) No Longer Active 08/25/2015 [facility] Ambien Notes: (Same As: Ambien) No Longer Active 08/25/2015 [facility] naloxone Notes: Same as Narcan No Longer Active 08/25/2015 [facility] BuSpar Notes: (Same As: BuSpar) No Longer Active 08/25/2015 [facility] amitriptyline Notes: (Same as: Elavil) No Longer Active 08/25/2015 [facility] meropenem 50 MG/ML Injectable Solution [Merrem] 500 mg, IV, Q8H, X 14 day, # 42 bag, 0 Refill(s) Active 08/24/2015 [facility] nicotine 2 mg oral transmucosal gum 2 mg = 1 ea, CHEW, Q2H, PRN for smoking cessation, X 2 week, # 168 ea, 0 Refill(s) Active 08/24/2015 [facility] zolpidem 5 mg = 1 tab, PO, Bed time, PRN Insomnia, 0 Refill(s) Active 08/24/2015 [facility] naloxone 0.4 mg/mL injectable solution 0.2 mg = 0.5 mL, IVP, Q5Min, PRN Narcotic Reversal, 0 Refill(s) Active 08/24/2015 [facility] pantoprazole 40 mg oral enteric coated tablet 40 mg = 1 tab, PO, Before Dinner, 0 Refill(s) Inactive 08/24/2015 [facility] multivitamin 1 tab, PO, Daily, 0 Refill(s) Inactive 08/24/2015 [facility] linezolid 600 mg oral tablet 6 00 mg = 1 tab, PO, [id number], 0 Refill(s) Inactive 08/24/2015 [facility] fluconazole 100 mg oral tablet 200 mg = 2 tab, PO, [id number], 0 Refill(s) Inactive 08/24/2015 [facility] lactobacillus acidophilus and bulgaricus CHEW, QID, 0 Refill(s) Inactive 08/24/2015 [facility] fentaNYL 75 mcg/hr transdermal film, extended release 1 patch, TOP, Q72H, 0 Refill(s) Inactive 08/24/2015 [facility] enoxaparin 40 mg/0.4 mL subcutaneous solution 40 mg = 0.4 mL, SUB-Q, [id number], 0 Refill(s) Inactive 08/24/2015 [facility] Docusate Sodium 50 MG / sennosides, FDC 8.6 MG Oral Tablet 1 tab, PO, BID, PRN Constipation, 0 Refill(s) Active 08/24/2015 [facility] baclofen 10 mg oral tablet 10 mg = 1 tab, PO, Q6H, 0 Refill(s) Inactive 08/24/2015 [facility] methadone 5 mg oral tablet 5 m g = 1 tab, PO, Q8H, 0 Refill(s) Inactive 08/24/2015 [facility] Cilastatin 5 MG/ML / Imipenem 5 MG/ML In jectable Solution = 1 ea, IV, Q6H, X 14 day, # 56 ea, 0 Refill(s) Inactive 08/24/2015 [facility] Dakins Half Strength Solution 0.25% topical 1 appl, TOP, Daily, 0 Refill(s) Active 08/24/2015 [facility] pantoprazole 40 mg oral enteric coated tablet 40 mg = 1 tab, PO, Before Dinner, 0 Refill(s) Active 08/24/2015 [facility] multivitamin 1 tab, PO, Daily, 0 Refill(s) Active 08/24/2015 [facility] linezolid 600 mg oral tablet 6 00 mg = 1 tab, PO, [id number], 0 Refill(s) Active 08/24/2015 [facility] lactobacillus acidophilus and bulgaricus CHEW, QID, 0 Refill(s) Active 08/24/2015 [facility] fluconazole 100 mg oral tablet 200 mg = 2 tab, PO, [id number], 0 Refill(s) Active 08/24/2015 [facility] fentaNYL 75 mcg/hr transdermal film, extended release 1 patch, TOP, Q72H, 0 Refill(s) Active 08/24/2015 [facility] enoxaparin 40 mg/0.4 mL subcutaneous solution 40 mg = 0.4 mL, SUB-Q, [id number], 0 Refill(s) Active 08/24/2015 [facility] collagenase topical 250 units/g ointment 1 appl, TOP, Daily, 0 Refill(s) Active 08/24/2015 [facility] busPIRone 5 mg oral tablet 5 m g = 1 tab, PO, TID, 0 Refill(s) Active 08/24/2015 [facility] baclofen 10 mg oral tablet 10 mg = 1 tab, PO, Q6H, 0 Refill(s) Active 08/24/2015 [facility] methadone 5 mg oral tablet 5 m g = 1 tab, PO, Q8H, 0 Refill(s) Active 08/24/2015 [facility] Buspar Notes: (Same As: BuSpar) No Longer Active 08/23/2015 [facility] Ketorolac 4 days MEDICA TION WASTE Product Size: 30 mg Product Wasted: ___ mg No Longer Active 08/23/2015 [facility] Baclofen Notes: (Same As: Fitz esal) No Longer Active 08/23/2015 [facility] Zyvox Notes: Protect from ligh t. (Same as: Zyvox) No Longer Active 08/23/2015 [facility] Kareen-Colace Reformulated Sep 2007 Notes: (Same as Se-S) Equiv. to Kareen-Colace. No Longer Active 08/23/2015 [facility] Fluconazole Notes: (Same as: D iflucan) No Longer Active 08/22/2015 [facility] Nicorette 4 mg Nicorette 4 mg, 1 gum, Drug form: MISC, Route: CHEW, Q1H, PRN Other -See Comment, 08/21/15 23:48:00, Duration: 30 day, Stop date: 09/20/15 23:47:00 N o Longer Active 08/22/2015 [facility] Nicorette 4 mg, Route: CHEW, Q 1H, Dosing Weight 69.8, kg, PRN Other -See Comment, Start date: 08/21/15 23:31:00, Duration: 30 day, Stop date: 09/20/15 23:30:00 Inactive 08/22/2015 [facility] Buspar Notes: (Same As: BuSpar) No Longer Active 08/21/2015 [facility] Alprazolam 2 MG Oral Tablet [Xanax] Notes: With food or milk (Same as: Xanax) No Longe r Active 08/21/2015 [facility] 72 HR Fentanyl 0.075 MG/HR Transdermal Patch Notes: (Same as: Duragesic) Check for product integrity. Apply to intact skin "Remove old patch before application of new patch" No Longer Active 08/21/2015 [facility] naloxone Notes: (Same as: Narc an) No Longer Active 08/21/2015 [facility] Sodium Chloride 0.9% (titrate) 250 mL 250 mL, Rate: solid propellant processor for use with blood product administration, Dosing Weight 69.8, kg, Route: IV, Total Volume: 250, Start Date: 08/21/15 10:12:00, Duration: 30 day, Stop date: 09/20/15 10:11:00, Replace Every: 24 hr No Longer Active 08/21/2015 [facility] Methadone Notes: (Same as: Dol ophine) No Longer Active 08/21/2015 [facility] Methadone 5 mg, Route: PO, [place] g form: TAB, Q12H, Dosing Weight 69.8, kg, Start date: 08/19/15 21:00:00, Duration: 5 day, Stop date: 08/24/15 9:00:00 Inactive 08/20/2015 [facility] meropenem + Sodium Chloride 0.9% IV 100 mL Notes: Same as Merrem MEDICATION WASTE Product Size: 500 mg Product Wasted: ___ mg Inactive 08/20/2015 [facility] Methadone Notes: (Same as: Dol ophine) No Longer Active 08/19/2015 [facility] remove patch 1 patch, Route: T OP, Drug form: ERFILM, Q72H, Start date: 08/19/15 17:00:00, Duration: 30 day, Stop date: 09/15/15 17:00:00 No Longer Active 08/19/2015 [facility] Ondansetron Notes: (Same as: Kory davis) MEDICATION WASTE Product Size: 4 mg Product Wasted: ___ mg Inactive 08/18/2015 [facility] Naloxone Notes: Same as Narcan Inactive 08/18/2015 [facility] Morphine Notes: (Same as:MORPh ine Sulfate) Inactive 08/18/2015 [facility] Flumazenil Notes: (Same as: Ro mazicon) Inactive 08/18/2015 [facility] zolpidem Notes: (Same As: Ambi en) No Longer Active 08/18/2015 [facility] Ondansetron Notes: (Same as: Kory davis) MEDICATION WASTE Product Size: 4 mg Product Wasted: ___ mg No Longer Active 08/18/2015 [facility] Methadone Notes: (Same as: Dol ophine) No Longer Active 08/18/2015 [facility] Lovenox Notes: (Same as: Loven ox) No Longer Active 08/17/2015 [facility] Methadone Notes: (Same as: Dol ophine) No Longer Active 08/17/2015 [facility] Floranex Notes: (Same as Joanie nex) Do NOT refrigerate No Longer Active 08/17/2015 [facility] Amikacin Notes: TIME CRITICAL MEDICATION (Same as: Amikin) MEDICATION WASTE Product Size: 500 mg Product Wasted: ___ mg Inactive 08/17/2015 [facility] 72 HR Fentanyl 0.05 MG/HR Transdermal Patch 1 patch, Route: TOP, Drug Form: ERFILM, Dosing Weight 69.8, kg, Q72H, Start date: 08/16/15 17:00:00, Duration: 30 day, Stop date: 09/12/15 17:00:00 No Longer Active 08/16/2015 [facility] Ondansetron Notes: (Same as: Kory davis) MEDICATION WASTE Product Size: 4 mg Product Wasted: ___ mg No Longer Active 08/16/2015 [facility] Alprazolam 1 MG Oral Tablet [Xanax] Notes: With food or milk (Same as: Xanax) No Longe r Active 08/16/2015 [facility] Methadone Notes: (Same as: Dol ophine) No Longer Active 08/15/2015 [facility] Santyl Notes: (Same As: Santyl) No Longer Active 08/15/2015 [facility] Dakins Half Strength Solution 0.25% topical Notes: Note: half-strength = 0.25% sodium hypochlorite. No Longer Active 08/14/2015 [facility] Amikacin Notes: TIME CRITICAL MEDICATION (Same as: Amikin) MEDICATION WASTE Product Size: 500 mg Product Wasted: ___ mg Inactive 08/14/2015 [facility] Kareen-Colace Reformulated Sep 2007 Notes: (Same as Senokot-S) Equiv. to Kareen-Colace. No Longer Active 08/13/2015 [facility] D5W 1/2NS 1,000 mL 1,000 mL, R ate: 150 ml/hr, Infuse over: 6.7 hr, Route: IV, Dosing Weight 69.8 kg, Total Volume: 1,000, Start date: 08/13/15 11:05:00, Duration: 30 day, Stop date: 09/12/15 11:04:00 No Longer Active 08/13/2015 [facility] Sodium Chloride 0.154 MEQ/ML Injectable Solution 500 mL, 500 ml/hr, Infuse Over: 1 hr, Route: IV, 500, Drug form: INJ, ONCE, Priority: STAT, Dosing Weight 69.8 kg, Start date: 08/13/15 11:03:00, Duration: 1 doses or times, Stop date: 08/13/15 11:03:00 Inactive 08/13/2015 [facility] Albumin Human, FDC 250 MG/ML Injectable Solution Notes: LOT#: Mfg: (Same as: Albuminar) "blood product derivative" Inactive 08/13/2015 [facility] Sodium Chloride 0.154 MEQ/ML Injectable Solution 500 mL, 500 ml/hr, Route: IV, ONCE, Priority: STAT, Dosing Weight 69.8 kg, Start date: 08/13/15 8:43:00, Duration: 1 doses or times, Stop date: 08/13/15 8:43:00 Inactive 08/13/2015 [facility] linezolid Notes: (Same as: Zyv ox) No Longer Active 08/13/2015 [facility] Lactulose Notes: (Same as:[employer] Site [employer] nulac) No Longer Active 08/12/2015 [facility] Fluconazole Notes: (Same as: D iflucan) Do not refrigerate No Longer Active 08/11/2015 [facility] Amikacin Notes: TIME CRITICAL MEDICATION (Same as: Amikin) MEDICATION WASTE Product Size: 500 mg Product Wasted: ___ mg Inactive 08/11/2015 [facility] Vancomycin 2001 mg: infuse ov er 2.5 hours MEDICATION WASTE Product Size: 1000 mg Product Wasted: ___ mg Inactive 08/11/2015 [facility] Albumin Human, FDC 50 MG/ML Injectable Solution Notes: LOT#: Mfg: (Same as: Albuminar) "blood product derivative" Inactive 08/11/2015 [facility] Sodium Chloride 0.154 MEQ/ML Injectable Solution 1,000 mL, Rate: 75 ml/hr, Infuse over: 13.3 hr, Route: IV, Dosing Weight 69.8 kg, Total Volume: 1,000, Start date: 08/11/15 9:15:00, Duration: 30 day, Stop date: 09/10/15 9:14:00 No Longer Active 08/11/2015 [facility] remove patch 1 patch, Route: T OP, Drug form: ERFILM, Daily, Start date: 08/11/15 9:00:00, Duration: 30 day, Stop date: 09/09/15 9:00:00 No Longer Active 08/11/2015 [facility] multivitamin Notes: (Same as: Nephro-Mima Rx and Diatx) Give with food. No Longer Active 08/11/2015 [facility] Mupirocin 0.02 MG/MG Nasal Ointment [Bactroban] 1 appl, Route: NASAL, Q12H, Drug form: OINT, Start date: 08/11/15 9:00:00, Duration: 5 day, Stop date: 08/15/15 21:00:00, MRSA decolonization No Longer Active 08/11/2015 [facility] pantoprazole Notes: Tablet miles uld not be chewed or crushed. (Same as: Protonix) N o Longer Active 08/10/2015 [facility] Amikacin Notes: TIME CRITICAL MEDICATION (Same as: Amikin) MEDICATION WASTE Product Size: 500 mg Product Wasted: ___ mg Inactive 08/10/2015 [facility] Sodium Chloride 0.154 MEQ/ML Injectable Solution 1,000 mL, Rate: 150 ml/hr, Infuse over: 6.7 hr, Route: IV, Dosing Weight 69.8 kg, Total Volume: 1,000, Start date: 08/10/15 9:09:00, Duration: 30 day, Stop date: 09/09/15 9:08:00 No Longer Active 08/10/2015 [facility] Habitrol 21 mg, 1 patch, Route : TOP, Drug form: ERFILM, Daily, Start date: 08/10/15 9:00:00, Duration: 30 day, Stop date: 09/08/15 9:00:00 No Longer Active 08/10/2015 [facility] Zinc Sulfate Notes: (Zinc sulf ate capsule) - 220 mg Zinc sulfate = 50 mg elemental zinc Same as Zinc Sulfate No Longer Active 08/10/2015 [facility] Amitriptyline Notes: (Same as: Elavil) No Longer Active 08/10/2015 [facility] Methadone Notes: (Same as: Dol ophine) No Longer Active 08/10/2015 [facility] Alprazolam 1 MG Oral Tablet [Xanax] Notes: With food or milk (Same as: Xanax) No Longe r Active 08/09/2015 [facility] meropenem Notes: Same as Barak jamil MEDICATION WASTE Product Size: 500 mg Product Wasted: ___ mg No Longer Active 08/09/2015 [facility] gabapentin 300 MG Oral Capsule Notes: (Same as: Neurontin) No Longer Active 08/09/2015 [facility] ascorbic acid Notes: (Same as: Vitamin C) No Longer Active 08/09/2015 [facility] Protonix + sodium chloride 10 mL Notes: For IV push reconstitute with 10 ml 0.9% sodium chloride and push over 2 minutes. (Same as: Protonix) No Longer Active 08/09/2015 [facility] Nicotine 2 mg, Route: Dr francis BRYANT form: GUM, Q2H, Dosing Weight 69.8, kg, PRN as needed for smoking cessation, Start date: 08/09/15 15:08:00, Duration: 30 day, Stop date: 09/08/15 15:07:00 Inactive 08/09/2015 [facility] Acetaminophen 325 MG / Hydrocodone Micheal trate 10 MG Oral Tablet Notes: Do not exceed 4gm/day of acetamin ophen. (Same as: [place] 325/10) No Longer Active 08/09/2015 [facility] 1/ NS 1,000 mL 1,000 mL, Rate : 100 ml/hr, Infuse over: 10 hr, Route: IV, Dosing Weight 69.8 kg, Total Volume: 1,000, Start date: 08/09/15 15:05:00, Duration: 30 day, Stop date: 09/08/15 15:04:00 No Longer Active 08/09/2015 [facility] cefepime Notes: (Same As: Franco guaman) MEDICATION WASTE Product Size: 1000 mg Product Wasted: ___ mg Inactive 08/09/2015 [facility] Albumin Human, FDC 50 MG/ML Injectable Solution Notes: LOT#: Mfg: (Same as: Albuminar) "blood product derivative" Inactive 08/09/2015 [facility] heparin sodium, porcine 2500 UNT/ML Injectable Solutio n Notes: porcine heparin No Longer Active 08/09/2015 [facility] Protonix 40 mg, Route: IVP, Kei greeny, Dosing Weight 86.364, kg, Start date: 08/09/15 9:00:00, Duration: 30 day, Stop date: 09/07/15 9:00:00 Inactive 08/09/2015 [facility] sodium phosphate + Sodium Chloride 0.9% IV 250 mL 30 mmol, 10 mL, Route: IVPB, PRN, Dosing Weight 69.8, kg, PRN Abnormal Lab Result, Start date: 08/09/15 8:48:00, Duration: 30 day, Stop date: 09/08/15 8:47:00, FOR ICU USE ONLY No Longer Active 08/09/2015 [facility] potassium phosphate + Sodium Chloride 0.9% IV 250 mL Notes: (Same as: K Phosphate.) 1 mMol phoshate has 1.47 mEq potassium Infuse over 4 hours No Longer Active 08/09/2015 [facility] Magnesium Oxide Notes: (Same a s: Mag-Ox 400) Magnesium oxide [id number] elemental magnesium Dose=____mg magnesium oxide (___mg elemental magnesium) No Longer Active 08/09/2015 [facility] Magnesium Sulfate 2 gm, 50 mL, Route: IVPB, Drug form: INJ, PRN, Dosing Weight 69.8, kg, PRN Abnormal Lab Result, Start date: 08/09/15 8:48:00, Duration: 30 day, Stop date: 09/08/15 8:47:00, FOR ICU USE ONLY No Longer Active 08/09/2015 [facility] Neutra-Phos Notes: (Same as: N eutra-Phos) Each 1.25 gm pkt has 250mg phosphorous. Mix w/2.5oz water and stir. No Longer Active 08/09/2015 [facility] Calcium Carbonate 500 MG Chewable Tablet Notes: (Same As: Tums) Calcium Carbonate 500 mg = 200 mg elemental calcium Dose = mg calcium carbonate ( mg elemental calcium) No Longer Active 08/09/2015 [facility] Calcium Gluconate 1 gm, 10 mL, Route: IVPB, PRN, Dosing Weight 69.8, kg, PRN Abnormal Lab Result, Start date: 08/09/15 8:48:00, Duration: 30 day, Stop date: 09/08/15 8:47:00, FOR ICU USE ONLY No Longer Active 08/09/2015 [facility] potassium chloride Notes: Infu se at a rate of 10 mEq/hr. (Same as: KCL) No Longer Active 08/09/2015 [facility] gabapentin 300 MG Oral Capsule 300 mg = 1 cap, PO, TID, # 90 cap, 0 Refill(s) No Longe r Active 08/09/2015 [facility] gabapentin PO, 0 Refill(s) Inactive 08/09/2015 [facility] Xanax 1 mg, PO, BID, 0 Refill( s) Active 08/09/2015 [facility] hydrocortisone 100 mg injection Notes: (Same as: Solu- CORTEF) No Longer Active 08/09/2015 [facility] Tylenol Notes: Infuse over 15 minutes Do not exceed 4gm/day of acetaminophen MEDICATION WASTE Product Size: 1000 mg Product Wasted: ___ mg No Longer Active 08/09/2015 [facility] D5NS 1,000 mL 1,000 mL, Rate: 75 ml/hr, Infuse over: 13.3 hr, Route: IV, Dosing Weight 86.364 kg, Total Volume: 1,000, Start date: 08/09/15 1:20:00, Duration: 30 day, Stop date: 09/08/15 1:19:00 No Longer Active 08/09/2015 [facility] potassium chloride Notes: (Corey e as: Potassium Chloride) Inactive 08/09/2015 [facility] Calcium Gluconate 2 gm, 20 mL, Route: IVPB, PRN, Dosing Weight 86.364, kg, PRN Abnormal Lab Result, For NON-ICU Patients Only., Start date: 08/09/15 1:18:00, Duration: 30 day, Stop date: 09/08/15 1:17:00 Inactive 08/09/2015 [facility] potassium phosphate + Sodium Chloride 0.9% IV 250 mL Notes: (Same as: K Phosphate.) 1 mMol phoshate has 1.47 mEq potassium Infuse over 4 hours Inactive 08/09/2015 [facility] potassium phosphate-sodium phosphate 250 mg-278 mg-164 mg oral powder Notes: (Same as: Neutra-Phos) Each 1.25 gm pkt has 250mg phosphorous. Mix w/2.5oz water and stir. Inactive 08/09/2015 [facility] Magnesium Sulfate 2 gm, 50 mL, Route: IVPB, Drug form: INJ, PRN, Dosing Weight 86.364, kg, PRN Abnormal Lab Result, For NON-ICU Patients Only., Start date: 08/09/15 1:18:00, Duration: 30 day, Stop date: 09/08/15 1:17:00 Inactive 08/09/2015 [facility] Magnesium Oxide Notes: (Same a s: Mag-Ox 400) Magnesium oxide [id number] elemental magnesium Dose=____mg magnesium oxide (___mg elemental magnesium) Inactive 08/09/2015 [facility] sodium phosphate + Sodium Chloride 0.9% IV 250 mL 30 mmol, 10 mL, Route: IVPB, PRN, Dosing Weight 86.364, kg, PRN Abnormal Lab Result, For NON-ICU Patients Only., Start date: 08/09/15 1:18:00, Duration: 30 day, Stop date: 09/08/15 1:17:00 Inactive 08/09/2015 [facility] Sodium Chloride 0.9% IV 25 mL, Route: IV, Start date: 08/09/15 0:51:00, Duration: 30 day, Stop date: 09/08/15 0:50:00, PRN Line Flush No Longer Active 08/09/2015 [facility] BD Normal Saline Flush Notes: (Same as: BD Posiflush) No Longer Active 08/09/2015 [facility] Vancomycin 2001 mg: infuse ov er 2.5 hours Inactive 08/09/2015 [facility] Norepinephrine Notes: Not for direct administration - DILUTE. Protect from light. (Same as:Levophed). Administer by either central venous catheter or peripherally-inserted central catheter (PICC) line. No Longer Active 08/09/2015 [facility] Dextrose 50% in Water IV 50 mL , Route: IVP, Start date: 08/08/15 19:11:00, Stop date: 08/08/15 19:11:00 Inactive 08/09/2015 [facility] Dextrose 50% in Water IV 50 mL , Route: IVP, Start date: 08/08/15 19:10:00, Stop date: 08/08/15 19:10:00 Inactive 08/09/2015 [facility] Dextrose 50 gm, Route: IV, ONC E, Dosing Weight 86.364, kg, Start date: 08/08/15 19:06:00, Stop date: 08/08/15 19:06:00 Inactive 08/09/2015 [facility] Dextrose 100 gm, Route: IV, ON CE, Dosing Weight 86.364, kg, Start date: 08/08/15 19:05:00, Stop date: 08/08/15 19:05:00 Inactive 08/09/2015 [facility] Tylenol Notes: Do not exceed 4 gm/day. (Same as: Tylenol) No Longer Active 08/09/2015 [facility] Phenylephrine Notes: (Same as: Kilo-Synephrine) Inactive 08/09/2015 [facility] Sodium Chloride 0.154 MEQ/ML Injectable Solution 1,000 mL, 1,000 ml/hr, Infuse Over: 1 hr, Route: IV, 1,000, Drug form: INJ, ONCE, Priority: STAT, Dosing Weight 86.364 kg, Start date: 08/08/15 17:08:00, Duration: 1 doses or times, Stop date: 08/08/15 17:08:00 Inactive 08/08/2015 [facility] Amikacin Notes: TIME CRITICAL MEDICATION (Same as: Amikin) MEDICATION WASTE Product Size: 1000 mg Product Wasted: 350 mg Inactive 08/08/2015 [facility] Ativan 2 mg, Route: IVP, Drug form: INJ, ONCE, Dosing Weight 86.364, kg, Priority: STAT, Start date: 08/08/15 15:46:00, Stop date: 08/08/15 15:46:00 Inactive 08/08/2015 [facility] Dextrose 50% Syringe 12.5 gm, 25 mL, Route: IVP, Drug Form: INJ, Dosing Weight 86.364, kg, ONCE, STAT, Start date: 08/08/15 15:40:00, Stop date: 08/08/15 15:40:00 Inactive 08/08/2015 [facility] Ativan Notes: (Same as: Ativan) Inactive 08/08/2015 [facility] Haldol Notes: (Same as: Haldol) Inactive 08/08/2015 [facility] Sodium Chloride 0.154 MEQ/ML Injectable Solution 1,000 mL, 1,000 ml/hr, Infuse Over: 1 hr, Route: IV, 1,000, Drug form: INJ, ONCE, Priority: STAT, Dosing Weight 86.364 kg, Start date: 08/08/15 14:30:00, Duration: 1 doses or times, Stop date: 08/08/15 14:30:00 Inactive 08/08/2015 [facility] Flagyl Notes: (Same as: Flagyl ) Avoid alcohol. No Longer Active 08/08/2015 [facility] cefepime Notes: (Same As: Franco guaman) MEDICATION WASTE Product Size: 1000 mg Product Wasted: ___ mg Inactive 08/08/2015 [facility] Vancomycin 2001 mg: infuse ov er 2.5 hours Inactive 08/08/2015 [facility] Sodium Chloride 0.154 MEQ/ML Injectable Solution 1,000 mL, 1,000 ml/hr, Infuse Over: 1 hr, Route: IV, 1,000, Drug form: INJ, ONCE, Priority: STAT, Dosing Weight 86.364 kg, Start date: 08/08/15 14:10:00, Duration: 1 doses or times, Stop date: 08/08/15 14:10:00 Inactive 08/08/2015 [facility] Saline Flush 0.9% Notes: (Same as: BD Posiflush) No Longer Active 08/08/2015 [facility] linezolid 600 MG Oral Tablet [Zyvox] 600 mg = 1 tab, PO, Q12H, X 10 day, # 20 tab, 0 Refill(s) Active 06/21/2015 [facility] Nitrofurantoin 100 MG Oral Capsule [Macrobid] 100 mg = 1 cap, PO, Daily, X 30 day, # 30 cap, 0 Refill(s) Inactive 06/21/2015 [facility] Macrodantin Notes: Not Recomme nded for patients with CrCl< 50 ml/min With food (Same as:Macrodantin) Inactive 06/21/2015 [facility] Macrobid 100 mg, Route: PO, Dr ug form: CAP, Daily, Dosing Weight 69.8, kg, Start date: 06/21/15 9:00:00, Duration: 30 day, Stop date: 07/20/15 9:00:00 Inactiv e 06/21/2015 [facility] Dakins Quarter Strength Solution Notes: (Dakin's (0.125%=1/4 strength) 473ml top SOLN) For external use only. Note: quarter strength = 0.125% sodium hypochlorite. No Longer Active 06/19/2015 [facility] Cubicin + Sodium Chloride 0.9% IV 100 mL Notes: (Same As: Cubicin) Restricted use to Infectious Disease Physicians. MEDICATION WASTE Product Size: 500 mg Product Wasted: ___ mg No Longer Active 06/19/2015 [facility] gentamicin + Sodium Chloride 0.9% IV 100 mL Notes: TIME CRITICAL MEDICATION (Same as Garamycin) Inactive 06/19/2015 [facility] Cubicin 279.2 mg, Route: IVPB, Q24H, Dosing Weight 69.8, kg, Start date: 06/19/15 13:00:00, Duration: 30 day, Stop date: 07/18/15 13:00:00 Inactive 06/19/2015 [facility] Gentamicin Sulfate (FDC) 320 m g, Route: IVPB, ONCE, Dosing Weight 69.8, kg, Start date: 06/19/15 12:31:00, Stop date: 06/19/15 12:31:00 Inactive 06/19/2015 [facility] Zinc Sulfate Notes: (Zinc sulf ate capsule) - 220 mg Zinc sulfate = 50 mg elemental zinc Same as Zinc Sulfate No Longer Active 06/18/2015 [facility] Test tab Test tab, 1 tab, Drug form: MISC, Route: PO, Daily, 06/18/15 9:00:00, Duration: 30 day, Stop date: 07/17/15 9:00:00 No Longer Active 06/18/2015 [facility] Amitriptyline Notes: (Same as: Elavil) No Longer Active 06/18/2015 [facility] Alteplase 1 MG/ML Injectable Solution [C athflo Activase] Notes: "Syringe for catheter clearance o r interventional radiology use. Reconstitute each vial of Cathflo Activase with 2.2 ml Sterile Water resulting in a 1 mg/ml solution. Stable for 8 hours only. (Same as: Activase) MEDICATION WASTE Product Size: 2 mg Product Wasted: ___ mg Inactive 06/17/2015 [facility] vancomycin + Sodium Chloride 0.9% IV 250 mL 2001 mg: infuse over 2.5 hours MEDICATION WASTE Product Size: 1000 mg Product Wasted: ___ mg No Longer Active 06/17/2015 [facility] Lovenox Notes: (Same as: Loven ox) No Longer Active 06/17/2015 [facility] meropenem + Sodium Chloride 0.9% IV 100 mL Notes: Same as Merrem MEDICATION WASTE Product Size: 500 mg Product Wasted: ___ mg No Longer Active 06/17/2015 [facility] Nicotine Notes: (Same as: Roney montague) "Remove old patch before application of new patch" No Longer Active 06/17/2015 [facility] ascorbic acid Notes: (Same as: Vitamin C) No Longer Active 06/17/2015 [facility] meropenem 500 mg, Route: IVPB, Drug form: PDR/INJ, [id number], Dosing Weight 69.8, kg, CrCL= 26 -49 ml/min, Extended infusion, infuse over 3 hours, Start date: 06/17/15 9:00:00, Duration: 30 day, Stop date: 07/17 1:00:00 Inactive 06/17/2015 [facility] Vancomycin 1 gm, Route: IVPB, Drug form: INJ, [id number], Dosing Weight 69.8, kg, Start date: 06/17/15 9:00:00, Duration: 30 day, Stop date: 07/16/15 21:00:00 Inactive 06/17/2015 [facility] Enoxaparin 30 mg, Route: SUB-Q , Drug form: INJ, [id number], Dosing Weight 69.8, kg, Start date: 06/17/15 9:00:00, Duration: 30 day, Stop date: 07/16/15 21:00:00 Inactive 06/17/2015 [facility] Acetaminophen Notes: Do not ex ceed 4 gm/day. (Same as: Tylenol) No Longer Active 06/17/2015 [facility] Morphine Notes: (Same as:MORPh ine Sulfate) No Longer Active 06/17/2015 [facility] Ondansetron Notes: (Same as: Kory davis) MEDICATION WASTE Product Size: 4 mg Product Wasted: ___ mg No Longer Active 06/17/2015 [facility] Sodium Chloride 0.154 MEQ/ML Injectable Solution 1,000 mL, Rate: 75 ml/hr, Infuse over: 13.3 hr, Route: IV, Dosing Weight 69.8 kg, Total Volume: 1,000, Start date: 06/17/15 8:47:00, Duration: 30 day, Stop date: 07/17/15 8:46:00 No Longer Active 06/17/2015 [facility] Saline Flush 0.9% 10 ml, Route : IVP, Drug Form: INJ, Dosing Weight 69.8, kg, PRN, PRN Line Flush, Start date: 06/17/15 8:47:00, Duration: 30 day, Stop date: 07/17/15 8:46:00 Inactive 06/17/2015 [facility] Methadone Notes: (Same as: Dol ophine) No Longer Active 06/17/2015 [facility] Atropine Sulfate 0.025 MG / Diphenoxylat e Hydrochloride 2.5 MG Oral Tablet Notes: (Same As: Lomotil) MAX Adult dose = 8 tabs/day No Longer Active 06/17/2015 [facility] Alprazolam Notes: With food or milk (Same as: Xanax) No Longer Active 06/17/2015 [facility] Acetaminophen 325 MG / Hydrocodone Micheal trate 10 MG Oral Tablet Notes: Do not exceed 4gm/day of acetamin ophen. (Same as: [place] 325/10) No Longer Active 06/17/2015 [facility] Morphine Notes: (Same as:MORPh ine Sulfate) Inactive 06/17/2015 [facility] nicotine 2 mg oral transmucosal gum 2 mg = 1 ea, CHEW, Q2H, PRN for smoking cessation, # 50 ea, 0 Refill(s) Active 06/17/2015 [facility] meropenem Notes: Same as Barak jamil MEDICATION WASTE Product Size: 500 mg Product Wasted: ___ mg Inactive 06/17/2015 [facility] Vancomycin 2001 mg: infuse ov er 2.5 hours Inactive 06/17/2015 [facility] Morphine Notes: (Same as:MORPh ine Sulfate) Inactive 06/17/2015 [facility] Saline Flush 0.9% Notes: (Same as: BD Posiflush) No Longer Active 06/17/2015 [facility] Saline Flush 0.9% Notes: (Same as: BD Posiflush) No Longer Active 06/17/2015 [facility] nicotine 2 mg oral transmucosal gum 2 [...] 07/04/15 18:14:00 No Longer Active 06/05/2015 [facility] Vancomycin Notes: TIME CRITICA L MEDICATION No [...] date: Limited # of times Inactive 06/03/2015 [facility] Flumazenil 0.2 mg, Route: IVP, PRN, Dosing Weight 71.001, kg, PRN Benzodiazepine Reversal, Initial dose, Start date: 06/03/15 9:22:00, Duration: 30 day, Stop date: 07/03/15 8:21:00 Inactive 06/03/2015 [facility] Calcium Chloride 0.0014 MEQ/ML / Potassi um Chloride 0.004 MEQ/ML / Sodium Chloride 0.103 MEQ/ML / Sodium Lactate 0.028 MEQ/ML Injectable Solution 1,000 mL, Rate: 25 ml/hr, Infuse over: 4 0 hr, Route: IV, Dosing Weight 71.001 kg, Total Volume: 1,000, Start date: 06/03/15 9:21:00, Duration: 30 day, Stop date: 07/03/15 9:20:00 Inactive 06/03/2015 [facility] Dakins Solution 0.5% topical N otes: (Dakin's (0.5% =full strength) 480 ml top SOLN) Note: full strength = 0.5% sodium hypochlorite. No Longer Active 06/03/2015 [facility] ondansetron (ANES) Route: IV, Drug form: INJ, ONCE, Stop date: 06/03/15 8:52:00 Inactiv e 06/03/2015 [facility] esmolol (ANES) Route: IV, Drug form: INJ, ONCE, Stop date: 06/03/15 8:52:00 Inactiv e 06/03/2015 [facility] ketAMINE (ANES) Route: IV, Arden g form: INJ, ONCE, Stop date: 06/03/15 8:52:00 Inactiv e 06/03/2015 [facility] propofol (ANES) Route: IV, Arden g form: INJ, ONCE, Stop date: 06/03/15 8:52:00 Inactiv e 06/03/2015 [facility] midazolam (ANES) Route: IV, Dr ug form: SOLN, ONCE, Stop date: 06/03/15 8:49:00 Inactiv e 06/03/2015 [facility] fentaNYL (ANES) Route: IV, Arden g [...] [place] Hydromorphone 0.5 mg, Route: I 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, Q5Min, Dosing Weight 71.001, kg, PRN Pain Score 7-10, Start date: 06/02/15 12:26:00, Duration: 4 doses or times, Stop date: Limited # of times Inactive 06/02/2015 [facility] Fentanyl 50 microgram, Route: IVP, Q5Min, Dosing Weight 71.001, kg, PRN Pain Score 7-10, Start date: 06/02/15 12:26:00, Duration: 2 doses or times, Stop date: Limited # of times Inactive 06/02/2015 [facility] Calcium Chloride 0.0014 MEQ/ML / Potassi um Chloride 0.004 MEQ/ML / Sodium Chloride 0.103 MEQ/ML / Sodium Lactate 0.028 MEQ/ML Injectable Solution 1,000 mL, Rate: 25 ml/hr, Infuse over: 4 0 hr, Route: IV, Dosing Weight 71.001 kg, Total Volume: 1,000, Start date: 06/02/15 12:24:00, Duration: 30 day, Stop date: 07/02/15 12:23:00 Inactive 06/02/2015 [facility] Sodium Chloride 0.0769 MEQ/ML Injectable Solution 1,000 mL, Rate: 75 ml/hr, Infuse over: 13.3 hr, Route: IV, Dosing Weight 71.001 kg, Total Volume: 1,000, Start date: 06/02/15 9:59:00, Stop date: 07/02/15 9:58:00 No Longer Active 06/02/2015 [facility] Saline Flush 0.9% Notes: Same as: BD Posiflush Sterile No Longer Active 06/02/2015 [facility] remove patch Notes: Remove old patch before application of new patch. No Longer Active 05/31/2015 [facility] Nicotine Notes: (Same as: Roney montague) "Remove old patch before application of new patch" No Longer Active 05/31/2015 [facility] Magnesium Sulfate 2 gm, 50 mL, Route: IVPB, Drug form: INJ, Q2H, Dosing Weight 71.001, kg, Total dose = 4 gm, Start date: 05/30/15 16:00:00, Duration: 2 doses or times, Stop date: 05/30/15 18:00:00 Inactive 05/30/2015 [facility] Sodium Chloride 0.9% (titrate) 250 mL 250 mL, Rate: solid propellant processor for use with blood product administration, Dosing [...] 5 MG Oral Tablet Notes: (Same as: [place] 325/5) Do not ex ceed 4gm/day of acetaminophen. No Longer Active 05/28/2015 [facility] Vancomycin 2001 mg: infuse ov er 2.5 hours MEDICATION WASTE Product Size: 1000 mg Product Wasted: ___ mg Inactive 05/28/2015 [facility] Rosa Notes: (Same As: Yandy chambers). Use with 100ml NS mini-bag PLUS and infuse over 30 min MEDICATION WASTE Product Size: 1000 mg Product Wasted: ___ mg Inactive 05/28/2015 [facility] Sodium Chloride 0.154 MEQ/ML Injectable Solution 1,000 mL, 1,000 ml/hr, Infuse Over: 1 hr, Route: IV, 1,000, Drug form: INJ, ONCE, Priority: STAT, Dosing Weight 63.636 kg, Start date: 05/27/15 18:37:00, Duration: 1 doses or times, Stop date: 05/27/15 18:37:00 Inactive 05/27/2015 [facility] cadexomer iodine 0.009 MG/MG Topical Gel [...] tab, PO, Q8H, 0 Refill(s) Active 06/29/2014 [facility] cadexomer-iodine topical Notes : Non-Formulary Drug. [...] not exceed 4gm/day of acetaminophen. (Same as: [place] 325/10) No Longer Active 06/28/2014 [facility] [...] mL, Route : IV, Drug form: INJ, [id number], Dosing Weight 72.727, kg, Start date: 06/25/14 [...] times, Stop date: 06/25/14 21:04:00 Inactive 06/26/2014 [facility] [place]en Notes: (Same As: Yandy chambers). Use with 100ml NS mini-bag PLUS and infuse over 30 min Inactive 06/26/2014 [facility] Saline Flush 0.9% Notes: Same as: BD Posiflush Sterile No Longer Active 06/25/2014 [facility] enoxaparin 30 mg, 0.3 mL, Rout e: SUB-Q, Drug form: INJ, [id number], Dosing Weight 68.182, kg, Start date: 05/22/12 17:00:00, Duration: 30 day, Stop date: 06/21/12 5:00:00 SUB-Q No Longer Active [place] 05/22/2012 [facility] docusate sodium 100 mg oral capsule 100 mg, 1 cap, Route: PO, Drug form: CAP, BID, Dosing Weight 68.182, kg, Start date: 05/22/12 17:00:00, Duration: 30 day, Stop date: 06/21/12 9:00:00 PO No Longer Active [place] 05/22/2012 [facility] Sodium Chloride 0.45% IV 1,000 mL 1,000 mL, Rate: 100 ml/hr, Infuse over: 10 hr, Route: IV, kg, Total Volume: 1,000, Start date: 05/22/12 15:20:00, Duration: 30 day, Stop date: 06/21/12 15:19:00 IV No Longer Active [place] 05/22/2012 [facility] Saline Flush 0.9% 5 ml, Route: IVP, Drug Form: INJ, Dosing Weight 68.182, kg, PRN, PRN Line Flush, Start date: 05/22/12 15:20:00, Duration: 30 day, Stop date: 06/21/12 14:19:00 IVP No Longer Active [place] 05/22/2012 [facility] acetaminophen-hydrocodone 325 mg-5 mg oral tablet [...] doses or times, Substitution Allowed IV Active [facility] 05/22/2012 [facility] Zofran 4 mg, [...] 1 tube, Substitution Allowed, CRM TOP Active [facility] 05/22/2012 [facility] Bactroban 2% topical cream 1 a ppl, TOP, BID, 1 tube, Substitution Allowed, CRM TOP Active [facility] 05/22/2012 [facility] Robaxin 500 mg oral tablet 750 mg, 1.5 tab, PO, TID, 90 tab, Substitution Allowed, TAB PO Active [facility] 05/22/2012 [facility] Bactrim DS oral tablet 1 tab, PO, Q12H, 30 tab, Substitution Allowed, Maintenance, TAB PO [facility] Bactrim DS 1 tab, Route: PO, D rug Form: TAB, Dosing Weight 68.182, kg, Q12H, Routine, Start date: 05/21/12 14:00:00, Duration: 28 doses or times, Stop date: 06/03/12 21:00:00 PO No Longer Active [facility] 05/21/2012 [facility] Teflaro + Sodium Chloride 0.9% IV 100 mL 600 mg, Route: IV, Drug form: INJ, [id number], Dosing Weight 68.182, kg, Priority: Routine, Start date: 05/20/12 16:00:00, Duration: 30 day, Stop date: 06/19/12 4:00:00 IV No Longer Active [facility] 05/20/2012 [facility] BD Posiflush SF 5 mL, Route: I 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, Drug Form: INJ, PRN, PRN Line Flush, [...] mL, Route : IVPB, Drug form: INJ, [id number], Dosing Weight 68.182, kg, Priority: Routine, Start [...] cap, Substitution Allowed PO Active [facility] 05/16/2012 [facility] OXYcodone 30 mg oral tablet 30 mg, 1 tab, PO, Q6H, PRN, Pain, Substitution Allowed, TAB PO Active 05/16/2012 [facility] influenza virus vaccine, inactivated 0.5 mL, Route: IM, Drug Form: INJ, ONCALL, Start date: 05/16/12 6:55:20, Stop date: 06/15/12 6:50:20 IM No Longer Active [facility] 05/16/2012 [facility] pneumococcal 23-valent vaccine 0.5 ml, Route: IM, Drug Form: INJ, ONCALL, Start date: 05/16/12 6:55:20, Stop date: 06/15/12 6:50:20 IM No Longer Active [facility] 05/04 [facility] ondansetron 4 mg, 2 mL, Route: IVP, Drug form: INJ, Q6H, Dosing Weight 68.182, kg, PRN Nausea & Vomiting, Start date: 05/16/12 1:54:00, Duration: 30 day, Stop date: 06/15/12 1:53:00 IVP No Longer Active [place] 05/16/2012 [facility] Tylenol 650 mg, Route: PO, ONC E, Dosing Weight 68.182, kg, Priority: STAT, Start date: 05/16/12 0:05:00, Stop date: 05/16/12 0:05:00 PO No Longer Active [facility] 05/04 [facility] Robitussin-AC oral syrup 5 ml, PO, Q4H, PRN, 100 mL, for cough, Substitution Allowed, Maintenance, SYRP PO Active [facility] 05/16/2012 [facility] Cipro 500 mg oral tablet 500 m g, 1 tab, PO, Q12H, 28 tab, Substitution Allowed, TAB PO No Longer Active [facility] 05/16/2012 [facility] Cipro 500 mg, 1 tab, Route: PO , Drug form: TAB, ONCE, Dosing Weight 68.182, kg, Priority: STAT, Start date: 05/15/12 23:46:00, Stop date: 05/15/12 23:46:00 PO No Longer Active [facility] 05/16/2012 [facility] morphine Sulfate 4 mg, 1 mL, R oute: IVP, Drug form: INJ, ONCE, Dosing Weight 68.182, kg, Priority: STAT, Start date: 05/15/12 22:37:00, Stop date: 05/15/12 22:37:00 IVP No Longer Active [place] 05/16/2012 [facility] Zyvox 600 mg, 1 tab, Route: PO , Drug form: TAB, BID, Start date: 02/28/12 9:00:00, Duration: 30 day, Stop date: 03/28/12 17:00:00 PO No Longer Active [facility] 02/02 [facility] Zyvox 600 mg, 1 tab, Route: PO , Drug form: TAB, BID, Start date: 02/27/12 21:00:00, Duration: 30 day, Stop date: 03/28/12 9:00:00 PO No Longer Active erick 02/02 [facility] Dilaudid 6 mg, 3 tab, Route: P O, Drug form: TAB, Q6H, Start date: 02/25/12 18:00:00, Duration: 30 day, Stop date: 03/26/12 12:00:00 PO No Longer Active Michael 02/02 [facility] Dilaudid 6 mg, 3 mL, Route: IV , Drug form: INJ, Q6H, PRN Pain, Start date: 02/25/12 17:18:00, Duration: 30 day, Stop date: 03/26/12 17:17:00 IV No Longer Active Eugeniomarysvalefausto 02/25/2012 [facility] Bactroban 1 appl, Route: TOP, Daily, Drug form: OINT, Start date: 02/25/12 9:00:00, Duration: 30 day, Stop date: 03/25/12 9:00:00 TOP No Longer Active Michael 02/02 [facility] Dilaudid 0.5 mg, Route: IVP, O NCE, Start date: 02/24/12 15:31:00, Stop date: 02/24/12 15:31:00 IVP No Longer Active Nguyễn 02/24/2012 [facility] Dilaudid 0.5 mg, Route: IVP, O NCE, Start date: 02/24/12 15:26:00, Stop date: 02/24/12 15:26:00 IVP No Longer Active Nguyễn 02/24/2012 [facility] Dilaudid 0.5 mg, Route: IVP, O NCE, Start date: 02/24/12 15:22:00, Stop date: 02/24/12 15:22:00 IVP No Longer Active Nguyễn 02/24/2012 [facility] Dilaudid 0.5 mg, Route: IVP, D rug form: INJ, ONCE, Start date: 02/24/12 15:21:00, Stop date: 02/24/12 15:21:00 IVP No Longer Active Nguyễn 02/24/2012 [facility] Dilaudid 0.5 mg, Route: IVP, O NCE, Start date: 02/24/12 15:16:00, Stop date: 02/24/12 15:16:00 IVP No Longer Active Nguyễn 02/24/2012 [facility] morphine Sulfate 2 mg, Route: IVP, ONCE, Start date: 02/24/12 15:15:00, Stop date: 02/24/12 15:15:00 IVP No Longer Active Nguyễn 02/24/2012 [facility] morphine Sulfate 2 mg, Route: IVP, ONCE, Start date: 02/24/12 15:10:00, Stop date: 02/24/12 15:10:00 IVP No Longer Active Nguyễn 02/24/2012 [facility] morphine Sulfate 2 mg, Route: IVP, ONCE, Start date: 02/24/12 15:07:00, Stop date: 02/24/12 15:07:00 IVP No Longer Active Nguyễn 02/24/2012 [facility] morphine Sulfate 2 mg, Route: IVP, ONCE, Start date: 02/24/12 15:06:00, Stop date: 02/24/12 15:06:00 IVP No Longer Active Nguyễn 02/24/2012 [facility] Zofran 4 mg, Route: IVP, ONCE, Start date: 02/24/12 15:06:00, Stop date: 02/24/12 15:06:00 IVP No Longer Active Nguyễn 02/24/2012 [facility] amitriptyline 150 mg, 1.5 tab, Route: PO, Drug form: TAB, Bedtime, Start date: 02/22/12 21:00:00, Duration: 30 day, Stop date: 03/22/12 21:00:00 PO No Longer Active [facility] 02/23/2012 [facility] morphine Sulfate 15 mg, 1 tab, Route: PO, Drug form: TAB, Q4H-WA, Start date: 02/21/12 22:00:00, Stop date: 03/22/12 18:00:00 PO No Longer Active [facility] 02/02 [facility] amitriptyline 50 mg, 2 tab, [place]: PO, Drug form: TAB, Bedtime, Start date: 02/21/12 21:00:00, Duration: 30 day, Stop date: 03/21/12 21:00:00 PO No Longer Active [facility] 02/22/2012 [facility] Lovenox 40 mg, 0.4 mL, Route: SUB-Q, Drug form: INJ, Q24H, Start date: 02/21/12 17:00:00, Stop date: 02/23/12 17:00:00 SUB-Q No Longer Active [facility] 02/21/2012 [facility] Dilaudid 6 mg, 3 tab, Route: P O, Drug form: TAB, Q6H, Start date: 02/21/12 0:00:00, Duration: 30 day, Stop date: 03/21/12 18:00:00 PO No Longer Active [facility] 02/02 [facility] Merrem + Sodium Chloride 0.9% IV 100 mL 500 mg, Route: IVPB, [id number], Start date: 02/18/12 22:00:00, Duration: 30 day, Stop date: 03/19/12 14:00:00 IVPB No Longer Active [facility] 02/19/2012 [facility] Dilaudid 8 mg, 4 tab, Route: P O, Drug form: TAB, ONCE, Start date: 02/17/12 3:31:00, Stop date: 02/17/12 3:31:00 PO No Longer Active [facility] 02/17/2012 [facility] Neurontin 1,200 mg, 3 cap, Rou te: PO, Drug form: CAP, Bedtime, Start date: 02/14/12 21:00:00, Duration: 30 day, Stop date: 03/14/12 21:00:00 PO No Longer Active Melissa 02/15/2012 [facility] Neurontin 600 mg, 2 cap, Route : PO, Drug form: CAP, TID, Start date: 02/14/12 13:00:00, Duration: 30 day, Stop date: 03/15/12 9:00:00 PO No Longer Active Melissa 02/01 [facility] Dilaudid 8 mg, 4 tab, Route: P O, Drug form: TAB, Q6H, Start date: 02/14/12 12:00:00, Duration: 30 day, Stop date: 03/15/12 9:00:00 PO No Longer Active Melissai 02/01 [facility] Dilaudid 4 mg, 2 tab, Route: P O, Drug form: TAB, Q6H, Start date: 02/13/12 20:00:00, Duration: 30 day, Stop date: 03/14/12 16:00:00 PO No Longer Active Michael 02/01 [facility] acetaminophen-hydrocodone 325 mg-10 mg oral tablet 1 tab, Route: PO, Drug Form: TAB, Q6H, Start date: 02/13/12 18:00:00, Duration: 30 day, Stop date: 03/14/12 14:00:00 PO No Longer Active Melissa 02/13/2012 [facility] Santyl 1 appl, Route: TOP, Aicha ly, Drug form: OINT, Start date: 02/13/12 9:00:00, Duration: 7 day, Stop date: 02/24/12 9:00:00 TOP No Longer Active Priscilla 02/01 [facility] Ditropan XL 10 mg, 2 tab, Rout e: PO, Drug form: ERTAB, Bedtime, Start date: 02/12/12 21:00:00, Duration: 30 day, Stop date: 03/12/12 21:00:00 PO No Longer Active Michael 02/13/2012 [facility] Rocephin + Sodium Chloride 0.9% IV 100 mL 1 gm, Route: IVPB, Daily, Start date: 02/12/12 17:00:00, Duration: 30 day, Stop date: 03/12/12 17:00:00 IVPB No Longer Active Michael 02/12/2012 [facility] lactobacillus rhamnosus GG 160 mg, 2 cap, Route: PO, Drug Form: CAP, TID, Start date: 02/12/12 17:00:00, Duration: 30 day, Stop date: 03/13/12 13:00:00 PO No Longer Active [facility] 02/12/2012 [facility] Protonix 40 mg, 1 tab, Route: PO, Drug form: ECTAB, Before Dinner, Start date: 02/12/12 16:30:00, Duration: 30 day, Stop date: 03/12/12 16:30:00 PO No Longer Active 02/12/2012 [facility] Habitrol 21 mg, 1 patch, Route : TOP, Drug form: ERFILM, Q24H, Start date: 02/12/12 16:00:00, Duration: 30 day, Stop date: 03/12/12 16:00:00 TOP No Longer Active [facility] 02/12/2012 [facility] Maxipime + Sodium Chloride 0.9% IV 100 mL 1 gm, Route: IVPB, ABXQ8H, Start date: 02/12/12 16:00:00, Duration: 30 day, Stop date: 03/13/12 8:00:00 IVPB No Longer Active 02/12/2012 [facility] baclofen 10 mg, 1 tab, Route: PO, Drug form: TAB, Q6H, PRN See Nurse's Notes, Start date: 02/12/12 15:06:00, Duration: 30 day, Stop date: 03/13/12 15:05:00 PO No Longer Active 02/12/2012 [facility] Neurontin 300 mg, 1 cap, Route : PO, Drug form: CAP, TID, Start date: 02/12/12 10:30:00, Duration: 30 day, Stop date: 03/13/12 9:00:00 PO No Longer Active 02/01 [facility] Xanax 2 mg, 2 tab, Route: PO, Drug form: TAB, BID, Start date: 02/12/12 10:30:00, Duration: 30 day, Stop date: 03/13/12 9:00:00 PO No Longer Active [facility] 02/01 [facility] Robaxin 750 mg, 1 tab, Route: PO, Drug form: TAB, TID, Start date: 02/12/12 10:20:00, Duration: 30 day, Stop date: 03/13/12 9:00:00 PO No Longer Active [facility] 02/01 [facility] acetaminophen-hydrocodone 325 mg-5 mg oral tablet 1 tab, Route: PO, Drug Form: TAB, Q6H, PRN Pain, Start date: 02/12/12 10:17:00, Duration: 30 day, Stop date: 03/13/12 10:16:00 PO No Longer Active [facility] 02/12/2012 [facility] morphine Sulfate 4 mg, 0.8 mL, Route: IV, Drug form: INJ, Q4H, PRN Pain, Start date: 02/11/12 20:20:00, Duration: 30 day, Stop date: 03/12/12 20:19:00 IV No Longer Active [facility] 02/12/2012 [facility] Rocephin 1 g/ NS (NaCl 0.9%) 50 mL IV solution 1 gm, Route: IVPB, Drug form: PDR/INJ, ONCE, Priority: STAT, Start date: 02/11/12 16:49:00, Stop date: 02/11/12 16:49:00 IVPB No Longer Active [place] 02/11/2012 [facility] Valium 5 mg, 1 mL, Route: IVP, Drug form: INJ, ONCE, Priority: STAT, Start date: 02/11/12 15:57:00, Stop date: 02/11/12 15:57:00 IVP No Longer Active [place] 02/10 [facility] Sodium Chloride 0.9% (Bolus) IV 1,000 mL 1,000 mL, Rate: 1,000 ml/hr, Infuse over: 1 hr, Route: IV, Dosing Weight 61.364 kg, Total Volume: 1,000, Bolus Dose, Priority: STAT, Start date: 02/11/12 15:57:00, Duration: 1 doses or times, Stop date: 02/11/12 16:56:00 IV No Longer Active [place] 02/11/2012 [facility] Sodium Chloride 0.9% IV 250 mL , Route: IVPB, Start date: 02/11/12 14:30:00, Duration: 30 day, Stop date: 03/12/12 14:29:00, PRN Line Flush IVPB No Longer Active [place] 02/11/2012 [facility] BD Normal Saline Flush 10 mL, Route: IVP, Drug Form: INJ, PRN, PRN Line Flush, Start date: 02/11/12 14:30:00, Duration: 30 day, Stop date: 03/12/12 14:29:00 IVP No Longer Active [place] 02/11/2012 [facility] morphine Sulfate 5 mg, 1 mL, R oute: IVP, Drug form: INJ, ONCE, Priority: STAT, Start date: 02/11/12 14:27:00, Stop date: 02/11/12 14:27:00 IVP No Longer Active [place] 02/11/2012 [facility] Xanax Substitution Allowed Active 02/11/2012 [facility] Soma Substitution Allowed Active 02/11/2012 [facility] Lortab 10/500 oral tablet Subs titution Allowed, Soft Stop Active 02/11/2012 [facility] Vibramycin 100 mg, 1 cap, Rout e: PO, Drug form: CAP, Q12H, Start date: 01/04/12 9:00:00, Duration: 30 day, Stop date: 02/02/12 21:00:00 PO No Longer Active Arvind 01/04/2012 [facility] Levaquin 500 mg, 2 tab, Route: PO, Drug form: TAB, Daily, Start date: 01/04/12 9:00:00, Duration: 30 day, Stop date: 02/02/12 9:00:00 PO No Longer Active Arvind 01/04/2012 [facility] albuterol 2.49 mg, 3 mL, Route : NEB, Drug form: SOLN, RQ8H, Start date: 01/04/12 7:00:00, Duration: 30 day, Stop date: 02/02/12 23:00:00 NEB No Longer Active Arvind 01/04/2012 [facility] Zofran 4 mg, 2 mL, Route: IV, Drug form: INJ, Q8H, PRN Nausea & Vomiting, Start date: 01/04/12 3:32:00, Duration: 30 day, Stop date: 02/03/12 3:31:00 IV No Longer Active Arvind 01/04/2012 [facility] Tylenol 650 mg, 2 tab, Route: PO, Drug form: TAB, Q4H, PRN Fever, Start date: 01/04/12 3:31:00, Duration: 30 day, Stop date: 02/03/12 3:30:00 PO No Longer Active Arvind 01/04/2012 [facility] Xanax 1 mg, 1 tab, Route: PO, Drug form: TAB, Q12H, PRN Agitation, Start date: 01/04/12 3:30:00, Duration: 30 day, Stop date: 02/03/12 3:29:00 PO No Longer Active Arvind 01/04/2012 [facility] tramadol 50 mg oral tablet 50 mg, 1 tab, Route: PO, Drug form: TAB, Q8H, PRN Pain, Start date: 01/04/12 3:28:00, Duration: 30 day, Stop date: 02/03/12 3:27:00 PO No Longer Active Arvind 01/04/2012 [facility] Zithromax 500 mg, Route: IVPB, Q24H, Start date: 01/03/12 21:00:00, Duration: 30 day, Stop date: 02/01/12 21:00:00 IVPB No Longer Active Ambrosio 01/04/2012 [facility] levofloxacin 500 mg, 100 mL, R oute: IVPB, Drug form: INJ, Q24H, for CrCl >49 mL/min, Start date: 01/03/12 20:00:00, Duration: 30 day, Stop date: 02/01/12 20:00:00 IVPB No Longer Active [place] 01/04/2012 [facility] Rocephin 1 gm, Route: IVPB, Q2 4H, Start date: 01/03/12 20:00:00, Duration: 30 day, Stop date: 02/01/12 20:00:00 IVPB No Longer Active [place] 01/04/2012 [facility] Protonix 40 mg, 1 tab, Route: PO, Drug form: ECTAB, Before Dinner, Start date: 01/03/12 16:30:00, Duration: 30 day, Stop date: 02/01/12 16:30:00 PO No Longer Active Arvind 01/03/2012 [facility] Levaquin 500 mg oral tablet 50 0 mg, 1 tab, PO, Q24H, 10 tab, Substitution Allowed PO Active Arvind 01/03/2012 [facility] Floranex 1 tab, Route: PO, Arden g Form: TAB, BID, Start date: 01/03/12 9:00:00, Duration: 30 day, Stop date: 02/01/12 17:00:00 PO No Longer Active Arvind 08/2011 [facility] Questran Light 4 gm, 1 pkt, [place]: PO, Drug form: PDR/REC, BID, Start date: 01/03/12 9:00:00, Duration: 30 day, Stop date: 02/01/12 17:00:00 PO No Longer Active Arvind 01/03/2012 [facility] Dilaudid 0.5 mg, 0.25 mL, Rout e: IV, Drug form: INJ, Q4H, PRN Pain, Start date: 01/02/12 23:24:00, Duration: 30 day, Stop date: 02/01/12 23:23:00 IV No Longer Active Arvind 01/03/2012 [facility] BD Normal Saline Flush 10 ml, Route: IVP, Drug Form: INJ, PRN, PRN Line Flush, Start date: 01/02/12 23:14:00, Duration: 30 day, Stop date: 02/01/12 23:13:00 IVP No Longer Active [place] 01/03/2012 [facility] naloxone 0.04 mg, 0.1 mL, Rout e: IVP, Drug form: INJ, Q2MIN, PRN Narcotic Reversal, Start date: 01/02/12 23:14:00, Duration: 30 day, Stop date: 02/01/12 23:13:00 IVP No Longer Active Arvind 01/03/2012 [facility] Benadryl 12.5 mg, 0.25 mL, Rou te: IV, Drug form: INJ, Q6H, PRN Itching, Start date: 01/02/12 23:13:00, Duration: 30 day, Stop date: 02/01/12 23:12:00 IV No Longer Active Arvind 01/03/2012 [facility] Xanax 2 mg, 2 tab, Route: PO, Drug form: TAB, BID, PRN as needed for anxiety, Start date: 01/02/12 23:10:00, Duration: 30 day, Stop date: 02/01/12 23:09:00 PO No Longer Active Arvind 01/03/2012 [facility] acetaminophen-hydrocodone 325 mg-10 mg oral tablet 1 tab, Route: PO, Drug Form: TAB, Q6H, PRN Pain, Start date: 01/02/12 23:09:00, Duration: 30 day, Stop date: 02/01/12 23:08:00 PO No Longer Active Arvind 01/03/2012 [facility] levofloxacin 500 mg, 100 mL, R oute: IVPB, Drug form: INJ, [id number], for CrCl >49 mL/min, Start date: 01/02/12 20:00:00, Duration: 30 day, Stop date: 01/31/12 20:00:00 IVPB No Longer Active [place] 01/03/2012 [facility] Protonix 40 mg, 1 tab, Route: PO, Drug form: ECTAB, Before Dinner, Start date: 01/02/12 16:30:00, Duration: 30 day, Stop date: 01/31/12 16:30:00 PO No Longer Active Arvind 01/02/2012 [facility] lactobacillus acidophilus and bulgaricus Route: PO, Drug Form: TAB, BID, Start date: 01/02/12 9:00:00, Duration: 30 day, Stop date: 01/31/12 17:00:00 PO No Longer Active Arvind 01/02/2012 [facility] Prevacid 30 mg, Route: PO, Arden g form: DRC, Daily, Start date: 01/02/12 9:00:00, Duration: 30 day, Stop date: 01/31/12 9:00:00 PO No Longer Active Arvind [facility] cholestyramine 4 gm, 1 pkt, Ro [place]: PO, Drug form: PDR/REC, BID, Start date: 01/02/12 9:00:00, Duration: 30 day, Stop date: 01/31/12 17:00:00 PO No Longer Active Arvind 01/02/2012 [facility] Sodium Chloride 0.9% IV 25 mL, Route: IV, Start date: 01/02/12 7:47:00, Duration: 30 day, Stop date: 02/01/12 7:46:00, PRN Line Flush IV No Longer Active Arvind [facility] Dilaudid 0.5 mg, 0.25 mL, Rout e: IV, Drug form: INJ, Q4H, PRN Pain, Start date: 01/01/12 22:55:00, Stop date: 01/31/12 22:54:00 IV No Longer Active Arvind [facility] Xanax 2 mg oral tablet 2 mg, 2 tab, Route: PO, Drug form: TAB, BID, PRN as needed for anxiety, Start date: 01/01/12 22:37:00, Duration: 30 day, Stop date: 01/31/12 22:36:00 PO No Longer Active Arvind 01/02/2012 [facility] acetaminophen-hydrocodone 325 mg-10 mg oral tablet 1 tab, Route: PO, Drug Form: TAB, Q6H, PRN Pain, Start date: 01/01/12 22:37:00, Duration: 30 day, Stop date: 01/31/12 22:36:00 PO No Longer Active Arvind 01/02/2012 [facility] Benadryl 12.5 mg, 0.25 mL, Rou te: IV, Drug form: INJ, Q6H, PRN Itching, Start date: 01/01/12 21:18:00, Duration: 30 day, Stop date: 01/31/12 21:17:00 IV No Longer Active Arvind 01/02/2012 [facility] naloxone 0.04 mg, 0.1 mL, Rout e: IVP, Drug form: INJ, Q2MIN, PRN Narcotic Reversal, Start date: 01/01/12 21:10:00, Duration: 30 day, Stop date: 01/31/12 21:09:00 IVP No Longer Active Arvind 01/02/2012 [facility] nalbuphine 2 mg, Route: IVP, Q 2H, PRN Itching, Start date: 01/01/12 21:10:00, Duration: 5 doses or times, Stop date: Limited # of times IVP No Longer Active Arvind 01/02/2012 [facility] azithromycin 500 mg, Route: IV PB, [id number], Start date: 01/01/12 21:00:00, Duration: 30 day, Stop date: 01/30/12 21:00:00 IVPB No Longer Active [place] 01/02/2012 [facility] ceftriaxone 1 gm, Route: IVPB, [id number], Start date: 01/01/12 21:00:00, Duration: 30 day, Stop date: 01/30/12 21:00:00 IVPB No Longer Active [place] 01/02/2012 [facility] levofloxacin 500 mg, 100 mL, R oute: IVPB, Drug form: INJ, ONCE, Priority: STAT, Start date: 01/01/12 18:34:00, Stop date: 01/01/12 18:34:00 IVPB No Longer Active Ambrosio 01/01/2012 [facility] acetaminophen-hydrocodone 325 mg-5 mg oral tablet 1 tab, Route: PO, Drug Form: TAB, ONCE, STAT, Start date: 01/01/12 12:37:00, Stop date: 01/01/12 12:37:00 PO No Longer Active [facility] 01/01/2012 [facility] Saline Flush 0.9% 10 ml, Route : IVP, Drug Form: INJ, PRN, PRN Line Flush, Start date: 01/01/12 12:34:00, Duration: 30 day, Stop date: 01/31/12 12:33:00 IVP No Longer Active [facility] 01/01/2012 [facility] Dilaudid 1 mg, 0.5 mL, Route: IV, Drug form: INJ, ONCE, Start date: 12/27/11 15:12:00, Stop date: 12/27/11 15:12:00 IV No Longer Active [place] 12/27/2011 [facility] Demerol HCl 12.5 mg, 0.25 mL, Route: IVP, Drug form: INJ, ONCE, Start date: 12/27/11 14:48:00, Stop date: 12/27/11 14:48:00 IVP No Longer Active [facility] ondansetron 4 mg, 2 mL, Route: IVP, Drug form: INJ, ONCE, PRN Nausea & Vomiting, Start date: 12/27/11 14:32:00 IVP No Longer Active [facility] 12/27/2011 [facility] midazolam 2 mg, 2 mL, Route: I 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, Drug form: INJ, Q5Min, PRN Anxiety, Start date: 12/27/11 14:32:00, Duration: 2 doses or times, Stop date: Limited # of times IVP No Longer Active [facility] 12/27/2011 [facility] promethazine 6.25 mg, 0.25 mL, Route: IVPB, ONCE, PRN Nausea & Vomiting, Start date: 12/27/11 14:32:00 IVPB No Longer Active [facility] 12/27/2011 [facility] naloxone 0.04 mg, 0.1 mL, Rout e: IVP, Drug form: INJ, Q2MIN, PRN Narcotic Reversal, Start date: 12/27/11 14:32:00, Duration: 8 doses or times, Stop date: Limited # of times IVP No Longer Active [facility] 12/27/2011 [facility] meperidine 12.5 mg, 0.25 mL, R oute: IVP, Drug form: INJ, Q30Min, PRN Other -See Comment, For shivering, Start date: 12/27/11 14:32:00, Duration: 2 doses or times, Stop date: Limited # of times IVP No Longer Active [facility] 12/27/2011 [facility] flumazenil 0.2 mg, 2 mL, Route : IVP, Drug form: INJ, PRN, PRN Benzodiazepine Reversal, Initial dose, Start date: 12/27/11 14:32:00, Duration: 30 day, Stop date: 01/26/12 14:31:00 IVP No Longer Active [facility] 12/27/2011 [facility] naloxone 0.04 mg, 0.1 mL, Rout e: IVP, Drug form: INJ, Q2MIN, PRN Narcotic Reversal, Start date: 12/27/11 14:25:00, Duration: 8 doses or times, Stop date: Limited # of times IVP No Longer Active [facility] 12/27/2011 [facility] ondansetron 4 mg, 2 mL, Route: IVP, Drug form: INJ, ONCE, PRN Nausea & Vomiting, Start date: 12/27/11 14:25:00 IVP No Longer Active [facility] 12/27/2011 [facility] flumazenil 0.2 mg, 2 mL, Route : IVP, Drug form: INJ, PRN, PRN Benzodiazepine Reversal, Initial dose, Start date: 12/27/11 14:25:00, Duration: 30 day, Stop date: 01/26/12 14:24:00 IVP No Longer Active [facility] 12/27/2011 [facility] meperidine 12.5 mg, 0.25 mL, R oute: IVP, Drug form: INJ, Q30Min, PRN Other -See Comment, For shivering, Start date: 12/27/11 14:25:00, Duration: 2 doses or times, Stop date: Limited # of times IVP No Longer Active [facility] 12/27/2011 [facility] Ditropan XL 15 mg, 3 tab, Rout e: PO, Drug form: ERTAB, Daily, Start date: 12/27/11 9:00:00, Duration: 30 day, Stop date: 01/25/12 9:00:00 PO No Longer Active [place] 12/27/2011 [facility] Diflucan 200 mg, 2 tab, Route: PO, Drug form: TAB, Daily, Start date: 12/26/11 9:00:00, Duration: 30 day, Stop date: 01/24/12 9:00:00 PO No Longer Active Arvind 12/26/2011 [facility] Maxipime 1 gm, Route: IVPB, Q1 2H, Start date: 12/25/11 20:00:00, Duration: 30 day, Stop date: 01/24/12 8:00:00 IVPB No Longer Active Arvind 12/26/2011 [facility] Phenergan 12.5 mg, 0.5 mL, Rou te: IVPB, Q4H, PRN Nausea & Vomiting, Start date: 12/24/11 19:08:00, Stop date: 01/23/12 19:07:00 IVPB No Longer Active Arvind [facility] Dilaudid 1 mg, 0.5 mL, Route: IV, Drug form: INJ, Q3H, PRN Pain, Start date: 12/24/11 13:47:00, Duration: 30 day, Stop date: 01/23/12 13:46:00 IV No Longer Active Arvind 12/24/2011 [facility] Prevacid 30 mg, Route: PO, Arden g form: DRC, Daily, Start date: 12/24/11 9:00:00, Duration: 30 day, Stop date: 01/22/12 9:00:00 PO No Longer Active Arvind [facility] cholestyramine 4 gm, 1 pkt, Ro [place]: PO, Drug form: PDR/REC, Daily, Start date: 12/24/11 9:00:00, Duration: 30 day, Stop date: 01/22/12 9:00:00 PO No Longer Active Arvind 12/24/2011 [facility] lactobacillus acidophilus and bulgaricus Route: PO, Drug Form: TAB, BID, Start date: 12/23/11 17:00:00, Duration: 30 day, Stop date: 01/22/12 9:00:00 PO No Longer Active Arvind 12/23/2011 [facility] Protonix 40 mg, 1 tab, Route: PO, Drug form: ECTAB, Before Dinner, Start date: 12/23/11 16:30:00, Duration: 30 day, Stop date: 01/21/12 16:30:00 PO No Longer Active Arvind 12/23/2011 [facility] Flagyl 500 mg, 1 tab, Route: P O, Drug form: TAB, [id number], Start date: 12/23/11 12:00:00, Duration: 30 day, Stop date: 01/22/12 4:00:00 PO No Longer Active Arvind [facility] Diflucan 200 mg, 100 mL, Route : IVPB, Drug form: INJ, [id number], Start date: 12/23/11 12:00:00, Duration: 30 day, Stop date: 01/21/12 12:00:00 IVPB No Longer Active Arvind 12/23/2011 [facility] Xanax 2 mg oral tablet 2 mg, 2 tab, Route: PO, Drug form: TAB, BID, PRN as needed for anxiety, Start date: 12/23/11 11:05:00, Duration: 30 day, Stop date: 01/22/12 11:04:00 PO No Longer Active Arvind 12/23/2011 [facility] [place] 10/325 oral tablet 1 tab , Route: PO, Drug Form: TAB, Q4H, PRN Pain, Start date: 12/23/11 11:05:00, Duration: 30 day, Stop date: 01/22/12 11:04:00 PO No Longer Active Arvind 12/23/2011 [facility] Zofran 4 mg, 2 mL, Route: IVP, Drug form: INJ, Q8H, PRN Nausea, Start date: 12/23/11 11:03:00, Duration: 30 day, Stop date: 01/22/12 11:02:00 IVP No Longer Active Arvind 12/23/2011 [facility] morphine Sulfate 2 mg, 1 mL, R oute: IV, Drug form: INJ, Q3H, PRN Pain, Start date: 12/23/11 9:41:00, Duration: 30 day, Stop date: 01/22/12 9:40:00 IV No Longer Active Arvind 12/23/2011 [facility] Merrem 500 mg, Route: IV, Q8H, Start date: 12/23/11 9:00:00, Duration: 30 day, Stop date: 01/22/12 1:00:00 IV No Longer Active Arvind 12/23/2011 [facility] Sodium Chloride 0.9% IV 1,000 mL 1,000 mL 1,000 mL, Rate: 75 ml/hr, Infuse over: 13.3 hr, Route: IV, Dosing Weight 56.818 kg, Total Volume: 1,000, Start date: 12/23/11 1:17:00, Duration: 30 day, Stop date: 01/22/12 1:16:00 IV No Longer Active Arvind 12/23/2011 [facility] Saline Flush 0.9% 10 ml, Route : IVP, Drug Form: INJ, PRN, PRN Line Flush, Start date: 12/23/11 1:17:00, Duration: 30 day, Stop date: 01/22/12 1:16:00 IVP No Longer Active Arvind 12/23/2011 [facility] Sodium Chloride 0.9% (Bolus) IV 1,000 mL 1,000 mL, Rate: 1,000 ml/hr, Infuse over: 1 hr, Route: IV, Dosing Weight 56.818 kg, Total Volume: 1,000, Bolus dose, Priority: STAT, Start date: 12/22/11 21:46:00, Duration: 1 doses or times, Stop date: 12/22/11 22:45:00 IV No Longer Active [place] 12/23/2011 [facility] Saline Flush 0.9% 5 ml, Route: IVP, Drug Form: INJ, PRN, PRN Line Flush, Start date: 12/22/11 21:46:00, Duration: 24 hr, Stop date: 12/23/11 21:45:00 IVP No Longer Active [facility] 12/23/2011 [facility] famotidine 20 mg, 2 mL, Route: IVP, Drug form: INJ, ONCE, Priority: STAT, Start date: 12/22/11 21:46:00, Stop date: 12/22/11 21:46:00 IVP No Longer Active [facility] 12/23/2011 [facility] ondansetron 4 mg, 2 mL, Route: IVP, Drug form: INJ, ONCE, Priority: STAT, Start date: 12/22/11 21:46:00, Stop date: 12/22/11 21:46:00 IVP No Longer Active [facility] 12/23/2011 [facility] morphine Sulfate 4 mg, 1 mL, R oute: IVP, Drug form: INJ, ONCE, Priority: STAT, Start date: 12/22/11 21:46:00, Stop date: 12/22/11 21:46:00 IVP No Longer Active [facility] 12/23/2011 [facility] Prevacid 30 mg oral delayed release capsule 30 mg, 1 cap, PO, Daily, 30 cap, 1, 1, Substitution Allowed PO Active [place] 12/09/2011 [facility] Bactrim DS oral tablet 1 tab, PO, BID, 20 tab, Substitution Allowed, Maintenance, TAB PO Active Priscila kh 12/09/2011 [facility] Floranex oral tablet 1, PO, BI D, 60 tab, Substitution Allowed, Maintenance, TAB PO Active [place] 12/09/2011 [facility] Questran 4 g/9 g oral powder 1 Pack, PO, BID, 60 ea, 1, 1, Substitution Allowed, PDR/REC PO Active [facility] 12/09/2011 [facility] Flagyl 500 mg oral tablet 500 mg, 1 tab, PO, Q8H, 30 tab, 1, 1, Substitution Allowed, TAB PO Active [facility] 12/09/2011 [facility] Xanax 2 mg oral tablet 2 mg, 1 tab, PO, BID, PRN, 15 tab, | Anxiety, Substitution Allowed, TAB PO Active [facility] 12/09/2011 [facility] Lortab 10/500 oral tablet 1 ta b, PO, Q6H, PRN, 30 tab, 0, 0, | as needed for pain, Substitution Allowed, Maintenance, TAB PO Active [facility] 12/09/2011 [facility] Bactrim DS 1 tab, Route: PO, D rug Form: TAB, BID, Start date: 12/06/11 17:00:00, Duration: 14 day, Stop date: 12/20/11 9:00:00 PO No Longer Active [facility] 11/2011 [facility] Diflucan 100 mg, 1 tab, Route: PO, Drug form: TAB, [id number], Start date: 12/06/11 15:00:00, Duration: 3 day, Stop date: 12/08/11 15:00:00 PO No Longer Active [facility] 12/06/2011 [facility] Lovenox 40 mg, 0.4 mL, Route: SUB-Q, Drug form: INJ, [id number], Start date: 12/06/11 14:15:00, Duration: 30 day, Stop date: 01/04/12 14:15:00 SUB-Q No Longer Active [facility] 12/06/2011 [facility] D5NS 1,000 mL 1,000 mL, Rate: 75 ml/hr, Infuse over: 13.3 hr, Route: IV, Dosing Weight 56.818 kg, Total Volume: 1,000, Start date: 12/06/11 14:14:00, Duration: 30 day, Stop date: 01/05/12 14:13:00 IV No Longer Active [facility] 12/06/2011 [facility] Questran 4 gm, 1 pkt, Route: P O, Drug form: PDR/REC, BID, Start date: 12/05/11 17:00:00, Duration: 30 day, Stop date: 01/04/12 9:00:00 PO No Longer Active [facility] 12/05/2011 [facility] Soma 350 mg, Route: PO, Drug f orm: TAB, TID, Start date: 12/05/11 17:00:00, Duration: 30 day, Stop date: 01/04/12 13:00:00 PO No Longer Active [facility] 12/05/2011 [facility] Zofran 4 mg, 2 mL, Route: IVP, Drug form: INJ, Q6H, PRN Nausea, Start date: 12/05/11 14:26:00, Duration: 30 day, Stop date: 01/04/12 14:25:00 IVP No Longer Active [facility] 12/05/2011 [facility] [place] 10/325 oral tablet 2 tab , Route: PO, Drug Form: TAB, Q4H, PRN Pain, Start date: 12/05/11 14:25:00, Duration: 30 day, Stop date: 01/04/12 14:24:00 PO No Longer Active [facility] 12/05/2011 [facility] Xanax 2 mg oral tablet 2 mg, 2 tab, Route: PO, Drug form: TAB, BID, PRN as needed for anxiety, Start date: 12/05/11 14:13:00, Duration: 30 day, Stop date: 01/04/12 14:12:00 PO No Longer Active [facility] 12/05/2011 [facility] lactobacillus acidophilus 1 ca p, Route: PO, Drug Form: CAP, BID, Start date: 12/05/11 9:00:00, Duration: 30 day, Stop date: 01/03/12 17:00:00 PO No Longer Active [facility] 12/05/2011 [facility] Cipro I.V. 400 mg/200 mL intravenous solution 400 mg, 200 mL, Route: IV, Drug form: INJ, [id number], Start date: 12/05/11 8:00:00, Duration: 30 day, Stop date: 01/03/12 20:00:00 IV No Longer Active [facility] 12/05/2011 [facility] ondansetron 4 mg oral tablet, disintegrating 4 mg, 1 tab, Route: PO, Drug form: TABDIS, TID, PRN as needed for nausea/vomiting, Start date: 12/05/11 7:35:00, Duration: 30 day, Stop date: 01/04/12 7:34:00 PO No Longer Active [facility] 10/2011 [facility] Dilaudid 1 mg, 0.5 mL, Route: IV, Drug form: INJ, Q8H, PRN For Pain, Start date: 12/05/11 7:35:00, Stop date: 01/04/12 7:34:00 IV No Longer Active Antonio-Ramila 12/05/2011 [facility] Augmentin 875 mg oral tablet 8 75 mg, PO, BID, 20 tab, Substitution Allowed, Maintenance PO No Longer Active 12/05/2011 [facility] Xanax 2 mg oral tablet 2 mg, 1 tab, PO, BID, PRN, Anxiety, Substitution Allowed PO No Longer Active [facility] 12/05/2011 [facility] Soma 350 mg oral tablet 350 mg , 1 tab, PO, TID, 30 tab, Substitution Allowed, TAB PO No Longer Active [facility] 12/05/2011 [facility] Lortab 10/500 oral tablet 1 ta b, PO, Q6H, PRN, as needed for pain, Substitution Allowed, Maintenance PO No Longer Active [facility] 12/05/2011 [facility] Sodium Chloride 0.9% IV 25 mL, Route: IV, Start date: 12/05/11 0:19:00, Duration: 30 day, Stop date: 01/04/12 0:18:00, PRN Line Flush IV No Longer Active [facility] 10/2011 [facility] BD Normal Saline Flush 10 mL, Route: IV, Drug Form: INJ, PRN, PRN Line Flush, Start date: 12/05/11 0:19:00, Duration: 30 day, Stop date: 01/04/12 0:18:00 IV No Longer Active [facility] 12/05/2011 [facility] Phenergan 25 mg, 1 mL, Route: IVPB, Q6H, PRN Nausea & Vomiting, Start date: 12/05/11 0:18:00, Duration: 30 day, Stop date: 01/04/12 0:17:00 IVPB No Longer Active [facility] 12/05/2011 [facility] Zofran 4 mg, 2 mL, Route: IVP, Drug form: INJ, Q8H, PRN Nausea & Vomiting, Start date: 12/05/11 0:18:00, Duration: 30 day, Stop date: 01/04/12 0:17:00 IVP No Longer Active [facility] 12/05/2011 [facility] Flagyl 500 mg, 1 tab, Route: P O, Drug form: TAB, Q8H, Start date: 12/05/11 0:00:00, Duration: 30 day, Stop date: 01/03/12 16:00:00 PO No Longer Active [facility] 10/2011 [facility] meropenem 1,000 mg, Route: IV, [id number], Start date: 12/04/11 23:00:00, Duration: 30 day, Stop date: 01/03/12 15:00:00 IV No Longer Active [facility] 12/05/2011 [facility] Floranex 1 tab, Route: PO, [place] g Form: TAB, BID, Start date: 12/04/11 22:51:00, Duration: 30 day, Stop date: 01/03/12 17:00:00 PO No Longer Active [facility] 10/2011 [facility] NS 1,000 mL 1,000 mL, Rate: 10 0 ml/hr, Infuse over: 10 hr, Route: IV, Dosing Weight 56.818 kg, Total Volume: 1,000, Start date: 12/04/11 21:20:00, Duration: 30 day, Stop date: 01/03/12 21:19:00 IV No Longer Active [facility] 12/05/2011 [facility] Tylenol 650 mg, 2 tab, Route: PO, Drug form: TAB, Q4H, PRN Pain, Start date: 12/04/11 21:20:00, Duration: 30 day, Stop date: 01/03/12 21:19:00 PO No Longer Active [facility] 12/05/2011 [facility] [place] 10/325 oral tablet 1 tab , Route: PO, Drug Form: TAB, Q4H, PRN Pain, Start date: 12/04/11 21:20:00, Duration: 30 day, Stop date: 01/03/12 21:19:00 PO No Longer Active Sony 12/05/2011 [facility] meropenem 1,000 mg, Route: IV, ONCE, Start date: 12/04/11 21:12:00, Stop date: 12/04/11 21:12:00 IV No Longer Active Shirley 12/05/2011 [facility] ondansetron 4 mg oral tablet, disintegrating 1 tab, Route: PO, ONCE, Start date: 12/04/11 20:59:00, Stop date: 12/04/11 20:59:00 PO No Longer Active Shirley 2011 [facility] ciprofloxacin 400 mg, 200 mL, Route: IVPB, Drug form: INJ, ONCE, Priority: STAT, Start date: 12/04/11 19:55:00, Stop date: 12/04/11 19:55:00 IVPB No Longer Active Shirley 12/05/2011 [facility] NS (Bolus) IV 1,000 mL 1,000 m L, Rate: 1,000 ml/hr, Infuse over: 1 hr, Route: IV, Dosing Weight 56.818 kg, Total Volume: 1,000, Start date: 12/04/11 19:50:00, Duration: 1 doses or times, Stop date: 12/04/11 20:49:00 IV No Longer Active Shirley 12/05/2011 [facility] Cipro I.V. 400 mg/200 mL intravenous solution 400 mg, Route: IV, ONCE, Start date: 12/04/11 19:34:00, Stop date: 12/04/11 19:34:00 IV No Longer Active Shirley 2011 [facility] ondansetron 4 mg oral tablet, disintegrating 1 tab, Route: PO, ONCE, Start date: 12/04/11 18:42:00, Stop date: 12/04/11 18:42:00 PO No Longer Active Shirley 2011 [facility] Dilaudid 1 mg, Route: IV, ONCE , Start date: 12/04/11 18:42:00, Stop date: 12/04/11 18:42:00 IV No Longer Active Shirley 12/04/2011 [facility] ondansetron 4 mg oral tablet, disintegrating 1 tab, Route: PO, ONCE, Start date: 12/04/11 18:39:00, Stop date: 12/04/11 18:39:00 PO No Longer Active Shirley 2011 [facility] Dilaudid 1 mg, Route: IV, ONCE , Start date: 12/04/11 18:39:00, Stop date: 12/04/11 18:39:00 IV No Longer Active Shirley 12/04/2011 [facility] Flagyl 500 mg oral tablet 500 mg, 1 tab, PO, Q8H, 30 tab, Substitution Allowed PO No Longer Active Watson 12/04/2011 [facility] sulfamethoxazole-trimethoprim 800 mg-160 mg oral table t 1 tab, Route: PO, Drug Form: TAB, Q12H, Start date: 11/11/11 21:00:00, Duration: 10 day, Stop date: 11/21/11 9:00:00 PO No Longer Active Liseth 11/12/2011 [facility] Invanz 1 gm, Route: IVPB, Q24H , Start date: 11/10/11 9:00:00, Duration: 30 day, Stop date: 12/09/11 9:00:00 IVPB No Longer Active Ekaney 11/10/2011 [facility] lidocaine topical 5% film (patch) 1 patch, Route: TOP, Daily, Drug form: FILM, Start date: 11/08/11 15:58:00, Duration: 30 day, Stop date: 12/08/11 9:00:00 TOP No Longer Active Liseth 11/08/2011 [facility] Celexa 20 mg, 1 tab, Route: PO , Drug form: TAB, QAM, Start date: 11/08/11 9:00:00, Duration: 30 day, Stop date: 12/07/11 9:00:00 PO No Longer Active Liseth 012 [facility] Robaxin 1,000 mg, 10 mL, Route : IVPB, Daily, Start date: 11/08/11 9:00:00, Duration: 3 day, Stop date: 11/10/11 9:00:00 IVPB No Longer Active Liseth 11/08/2011 [facility] Cipro 500 mg, 1 tab, Route: PO , Drug form: TAB, Daily, Start date: 11/08/11 9:00:00, Duration: 30 day, Stop date: 12/07/11 9:00:00 PO No Longer Active Liseth 012 [facility] Norvasc 5 mg, 1 tab, Route: PO , Drug form: TAB, Daily, Start date: 11/08/11 9:00:00, Duration: 30 day, Stop date: 12/07/11 9:00:00 PO No Longer Active Liseth 012 [facility] Xanax 2 mg, 2 tab, Route: PO, Drug form: TAB, BID, Start date: 11/08/11 9:00:00, Duration: 30 day, Stop date: 12/07/11 17:00:00 PO No Longer Active Liseth 012 [facility] Rocephin 1 gm, Route: IVPB, Q2 4H, Start date: 11/08/11 1:00:00, Duration: 30 day, Stop date: 12/07/11 1:00:00 IVPB No Longer Active Asher 11/08/2011 [facility] ketorolac 30 mg/mL injectable solution 30 mg, 1 mL, Route: IV, Drug form: INJ, Q6H, Start date: 11/08/11 0:00:00, Duration: 48 hr, Stop date: 11/09/11 18:00:00 IV No Longer Active Liseth 11/08/2011 [facility] Duricef 500 mg, 1 cap, Route: PO, Drug form: CAP, Q12H, Start date: 11/07/11 21:00:00, Duration: 30 day, Stop date: 12/07/11 9:00:00 PO No Longer Active Liseth 012 [facility] Diflucan 200 mg, 2 tab, Route: PO, Drug form: TAB, Daily, Start date: 11/07/11 20:52:00, Duration: 30 day, Stop date: 12/07/11 9:00:00 PO No Longer Active Liseth 11/08/2011 [facility] loperamide 2 mg, 1 cap, Route: PO, Drug form: CAP, Q6H, PRN Diarrhea, Start date: 11/07/11 20:08:00, Duration: 30 day, Stop date: 12/07/11 20:07:00 PO No Longer Active Liseth 11/08/2011 [facility] tramadol 50 mg oral tablet 100 mg, 2 tab, Route: PO, Drug form: TAB, Q4H, PRN Pain, Start date: 11/07/11 19:44:00, Duration: 30 day, Stop date: 12/07/11 19:43:00 PO No Longer Active Liseth 11/08/2011 [facility] tramadol 50 mg oral tablet 50 mg, 1 tab, Route: PO, Drug form: TAB, Q4H, PRN Pain, Start date: 11/07/11 19:43:00, Duration: 30 day, Stop date: 12/07/11 19:42:00 PO No Longer Active Liseth 11/08/2011 [facility] loperamide 2 mg, 1 cap, Route: PO, Drug form: CAP, ONCE, Start date: 11/07/11 19:09:00, Stop date: 11/07/11 19:09:00 PO No Longer Active Liseth 11/08/2011 [facility] chlordiazepoxide 25 mg oral capsule 50 mg, 2 cap, Route: PO, Drug form: CAP, Q6H, PRN Agitation, Start date: 11/07/11 19:09:00, Duration: 30 day, Stop date: 12/07/11 19:08:00 PO No Longer Active Liseth 11/08/2011 [facility] D5W 1/2NS + KCL 20mEq/L 1000ml (Premix) 1,000 mL 1,000 mL, Rate: 125 ml/hr, Infuse over: 8 hr, Route: IV, Dosing Weight 62 kg, Total Volume: 1,000, Start date: 11/07/11 18:30:00, Duration: 30 day, Stop date: 12/07/11 18:29:00 IV No Longer Active Asher 11/07/2011 [facility] baclofen 10 mg, 1 tab, Route: PO, Drug form: TAB, BID, Start date: 11/07/11 17:00:00, Duration: 30 day, Stop date: 12/07/11 9:00:00 PO No Longer Active Liseth 012 [facility] Zyvox 600 mg, 1 tab, Route: PO , Drug form: TAB, BID, Start date: 11/07/11 17:00:00, Duration: 30 day, Stop date: 12/07/11 9:00:00 PO No Longer Active Liseth 012 [facility] Protonix 40 mg, 1 tab, Route: PO, Drug form: ECTAB, Before Dinner, Start date: 11/07/11 16:30:00, Duration: 30 day, Stop date: 12/06/11 16:30:00 PO No Longer Active Liseth 11/07/2011 [facility] Lovenox 40 mg, 0.4 mL, Route: SUB-Q, Drug form: INJ, [id number], Start date: 11/07/11 15:00:00, Duration: 30 day, Stop date: 12/06/11 15:00:00 SUB-Q No Longer Active Liseth 11/07/2011 [facility] aluminum hydroxide-magnesium hydroxide 2 00 mg-200 mg/5 mL oral suspension 30 mL, Route: PO, Drug Form: SUSP, Q6H, PRN See Nurse's Notes, Start date: 11/07/11 14:34:00, Duration: 30 day, Stop date: 12/07/11 14:33:00 PO No Longer Active Liseth 012 [facility] D5W 1/2NS + KCL 20mEq/L 1000ml (Premix) 1,000 mL 1,000 mL, Rate: 250 ml/hr, Infuse over: 4 hr, Route: IV, Dosing Weight 62 kg, Total Volume: 1,000, Start date: 11/07/11 14:28:00, Duration: 1 doses or times, Stop date: 11/07/11 18:27:00 IV No Longer Active Asher 11/07/2011 [facility] morphine Sulfate 2 mg, 0.4 mL, Route: IV, Drug form: INJ, Q4H, PRN Pain, Start date: 11/07/11 14:25:00, Duration: 30 day, Stop date: 12/07/11 14:24:00 IV No Longer Active Liseth 11/07/2011 [facility] acetaminophen-hydrocodone 325 mg-10 mg oral tablet 1 tab, Route: PO, Drug Form: TAB, Q4H, PRN Pain, Start date: 11/07/11 12:05:00, Duration: 30 day, Stop date: 12/07/11 12:04:00 PO No Longer Active Liseth 11/07/2011 [facility] Questran 4 gm, 1 pkt, Route: P O, Drug form: PDR/REC, Q6H, Start date: 11/07/11 12:00:00, Duration: 30 day, Stop date: 12/07/11 6:00:00 PO No Longer Active Liseth 11/07/2011 [facility] Lopressor 50 mg, 1 tab, Route: PO, Drug form: TAB, BID, Start date: 11/07/11 11:40:00, Duration: 30 day, Stop date: 12/07/11 9:00:00 PO No Longer Active Liseth 012 [facility] Neurontin 300 mg, 1 cap, Route : PO, Drug form: CAP, Daily, Start date: 11/07/11 11:39:00, Duration: 30 day, Stop date: 12/07/11 9:00:00 PO No Longer Active Liseth 11/07/2011 [facility] baclofen 10 mg, 1 tab, Route: PO, Drug form: TAB, Daily, Start date: 11/07/11 11:39:00, Duration: 30 day, Stop date: 12/07/11 9:00:00 PO No Longer Active Liseth 012 [facility] acetaminophen-hydrocodone 325 mg-5 mg oral tablet 1 tab, Route: PO, Drug Form: TAB, Q4H, PRN Pain, Start date: 11/07/11 11:39:00, Duration: 30 day, Stop date: 12/07/11 11:38:00 PO No Longer Active Liseth 11/07/2011 [facility] Xanax 2 mg, 2 tab, Route: PO, Drug form: TAB, BID, Start date: 11/07/11 11:39:00, Duration: 30 day, Stop date: 12/07/11 9:00:00 PO No Longer Active Liseth [facility] Dolophine 40 mg, 4 tab, Route: PO, Drug form: TAB, BID, Start date: 11/07/11 11:39:00, Duration: 30 day, Stop date: 12/07/11 9:00:00 PO No Longer Active Liseth 012 [facility] Zofran 4 mg, 2 mL, Route: IVP, Drug form: INJ, Q4H, PRN Nausea & Vomiting, Start date: 11/07/11 4:36:00, Duration: 30 day, Stop date: 12/07/11 4:35:00 IVP No Longer Active Asher 11/07/2011 [facility] Tylenol 650 mg, 2 tab, Route: PO, Drug form: TAB, Q4H, PRN Pain, Start date: 11/07/11 4:36:00, Duration: 30 day, Stop date: 12/07/11 4:35:00 PO No Longer Active [facility] 11/07/2011 [facility] D5W 1/2NS + KCL 20mEq/L 1000ml (Premix) 1,000 mL 1,000 mL, Rate: 100 ml/hr, Infuse over: 10 hr, Route: IV, Dosing Weight 74.6 kg, Total Volume: 1,000, Start date: 11/07/11 4:35:00, Duration: 30 day, Stop date: 12/07/11 4:34:00 IV No Longer Active Asher 11/07/2011 [facility] Zofran 4 mg, Route: IVP, Drug form: INJ, ONCE, Priority: STAT, Start date: 11/07/11 0:53:00, Stop date: 11/07/11 0:53:00 IVP No Longer Active Bhavesh 11/07/2011 [facility] morphine 5 mg/mL preservative-free injectable solution 5 mg, Route: IV, ONCE, Start date: 11/07/11 0:53:00, Stop date: 11/07/11 0:53:00 IV No Longer Active Bhavesh [facility] Rocephin 1 g/ NS (NaCl 0.9%) 50 mL IV solution 1 gm, Route: IVPB, Drug form: PDR/INJ, ONCE, Priority: STAT, Start date: 11/07/11 0:46:00, Stop date: 11/07/11 0:46:00 IVPB No Longer Active Bhavesh 11/07/2011 [facility] Sodium Chloride 0.9% IV 250 mL , Route: IVPB, Start date: 11/06/11 21:17:00, Duration: 30 day, Stop date: 12/06/11 21:16:00, PRN Line Flush IVPB No Longer Active Ruddy 11/07/2011 [facility] BD Normal Saline Flush 10 mL, Route: IVP, Drug Form: INJ, PRN, PRN Line Flush, Start date: 11/06/11 21:17:00, Duration: 30 day, Stop date: 12/06/11 21:16:00 IVP No Longer Active Fox 11/07/2011 [facility] Saline Flush 0.9% 5 ml, Route: IVP, Drug Form: INJ, PRN, PRN Line Flush, Start date: 11/06/11 21:07:00, Duration: 24 hr, Stop date: 11/07/11 21:06:00 IVP No Longer Active Bhavesh 11/07/2011 [facility] Sodium Chloride 0.9% IV 1,000 mL 1,000 mL, Rate: 125 ml/hr, Infuse over: 8 hr, Route: IV, Dosing Weight 74.6 kg, Total Volume: 1,000, Start date: 11/06/11 21:07:00, Duration: 30 day, Stop date: 12/06/11 21:06:00 IV No Longer Active Bhavesh [facility] ondansetron 4 mg, 2 mL, Route: IVP, Drug form: INJ, ONCE, Priority: STAT, Start date: 11/06/11 21:07:00, Stop date: 11/06/11 21:07:00 IVP No Longer Active Bhavesh 11/07/2011 [facility] Duricef 500 mg, 1 cap, Route: PO, Drug form: CAP, Q12H, Start date: 10/23/11 14:00:00, Duration: 30 day, Stop date: 11/22/11 9:00:00 PO No Longer Active [place] [facility] Cipro 500 mg, 1 tab, Route: PO , Drug form: TAB, Q12H, Start date: 10/23/11 13:33:00, Duration: 30 day, Stop date: 11/22/11 9:00:00 PO No Longer Active [place] [facility] sterile water 2.2 mL, Route: I V, Drug Form: INJ, PRN, PRN See Nurse's Notes, Start date: 10/23/11 13:10:00, Duration: 1 day, Stop date: 10/24/11 13:09:00 IV No Longer Active Jared 10/23/2011 [facility] Activase 2 mg, 2 mL, Route: IV , Drug form: INJ, ONCE, Start date: 10/23/11 13:10:00, Stop date: 10/23/11 13:10:00 IV No Longer Active Jared 10/23/2011 [facility] Robitussin-DM 15 mL, Route: PO , Drug Form: LIQ, Q6H, PRN Cough, Start date: 10/19/11 16:23:00, Duration: 30 day, Stop date: 11/18/11 16:22:00 PO No Longer Active Bishara 10/19/2011 [facility] Norvasc 5 mg, 1 tab, Route: PO , Drug form: TAB, Daily, Start date: 10/19/11 16:00:00, Stop date: 11/17/11 16:00:00 PO No Longer Active Jared 10/19/2011 [facility] Norvasc 5 mg, 1 tab, Route: PO , Drug form: TAB, ONCE, Start date: 10/19/11 12:00:00, Stop date: 10/19/11 12:00:00 PO No Longer Active Cespedes 10/19/2011 [facility] Trandate 5 mg, 1 mL, Route: IV , Drug form: INJ, Q6H, PRN Elevated BP, Start date: 10/19/11 11:49:00, Duration: 30 day, Stop date: 11/18/11 11:48:00 IV No Longer Active [facility] 10/19/2011 [facility] clonidine 0.1 mg oral tablet 0 .1 mg, 1 tab, Route: PO, Drug form: TAB, Q4H, PRN Elevated BP, Start date: 10/19/11 11:47:00, Duration: 30 day, Stop date: 11/18/11 11:46:00 PO No Longer Active [facility] 10/19/2011 [facility] acetaminophen 500 mg, 1 tab, R oute: PO, Drug form: TAB, Q4H, PRN Pain/Fever, Start date: 10/19/11 0:30:00, Duration: 30 day, Stop date: 11/18/11 0:29:00 PO No Longer Active Jared 10/19/2011 [facility] Bactroban 1 appl, Route: TOP, Daily, Drug form: OINT, Start date: 10/18/11 23:00:00, Duration: 30 day, Stop date: 11/17/11 9:00:00 TOP No Longer Active Jared 10/18 [facility] Zyvox 600 mg, 1 tab, Route: PO , Drug form: TAB, [id number], Start date: 10/18/11 14:00:00, Duration: 30 day, Stop date: 11/17/11 2:00:00 PO No Longer Active Jared 10/17 [facility] magnesium sulfate 4 gm, 100 mL , Route: IVPB, Drug form: INJ, ONCE, Start date: 10/18/11 9:41:00, Stop date: 10/18/11 9:41:00 IVPB No Longer Active Jared 10/17 [facility] Norvasc 10 mg, 2 tab, Route: P O, Drug form: TAB, Daily, Start date: 10/18/11 9:41:00, Stop date: 11/17/11 9:00:00 PO No Longer Active Cespedes 10/18/2011 [facility] Detrol LA 4 mg, 1 cap, Route: PO, Drug form: CAP, Daily, Start date: 10/18/11 9:00:00, Duration: 30 day, Stop date: 11/16/11 9:00:00 PO No Longer Active Jared 10/17 [facility] Zyvox 600 mg, 300 mL, Route: I VPB, Drug form: SOLN, [id number], Start date: 10/17/11 14:00:00, Duration: 30 day, Stop date: 11/16/11 2:00:00 IVPB No Longer Active Jared 10/17/2011 [facility] hydromorphone 0.5 mg, Route: I V, ONCE, Start date: 10/17/11 8:36:00, Stop date: 10/17/11 8:36:00 IV No Longer Active [place] 10/17/2011 [facility] hydromorphone 0.5 mg, Route: I V, ONCE, Start date: 10/17/11 8:35:00, Stop date: 10/17/11 8:35:00 IV No Longer Active [place] 10/17/2011 [facility] magnesium sulfate 2 gm, 50 mL, Route: IVPB, Drug form: INJ, ONCE, Start date: 10/17/11 8:00:00, Stop date: 10/17/11 8:00:00 IVPB No Longer Active Jared 10/16 [facility] Sodium Chloride 0.9% IV 25 mL, Route: IV, Start date: 10/17/11 7:36:00, Duration: 30 day, Stop date: 11/16/11 7:35:00, PRN Line Flush IV No Longer Active Jared 10/16 [facility] BD Normal Saline Flush 10 mL, Route: IV, Drug Form: INJ, PRN, PRN Line Flush, Start date: 10/17/11 7:36:00, Duration: 30 day, Stop date: 11/16/11 7:35:00 IV No Longer Active [facility] 10/17/2011 [facility] Sodium Chloride 0.45% IV 1,000 mL 1,000 mL, Rate: 40 ml/hr, Infuse over: 25 hr, Route: IV, Dosing Weight 74.6 kg, Total Volume: 1,000, Start date: 10/17/11 7:36:00, Stop date: 11/16/11 7:35:00 IV No Longer Active [facility] 10/17/2011 [facility] Lactated Ringers IV 1,000 mL 1 ,000 mL, Rate: 40 ml/hr, Infuse over: 25 hr, Route: IV, Dosing Weight 74.6 kg, Total Volume: 1,000, Start date: 10/17/11 7:05:00, Duration: 30 day, Stop date: 11/16/11 7:04:00 IV No Longer Active [place] 012 [facility] Dilaudid 1.5 mg, 0.75 mL, Rout e: IV, Drug form: INJ, Q6H, PRN Pain, Start date: 10/16/11 11:00:00, Duration: 30 day, Stop date: 11/15/11 10:59:00 IV No Longer Active Jared 10/16/2011 [facility] Celexa 40 mg, 2 tab, Route: PO , Drug form: TAB, QAM, Start date: 10/16/11 9:00:00, Duration: 30 day, Stop date: 11/14/11 9:00:00 PO No Longer Active Jared 10/15 [facility] Neurontin 300 mg, 1 cap, Route : PO, Drug form: CAP, Daily, Start date: 10/16/11 9:00:00, Duration: 30 day, Stop date: 11/14/11 9:00:00 PO No Longer Active Jared 10/16/2011 [facility] magnesium sulfate 1 gm, 100 mL , Route: IVPB, Drug form: INJ, ONCE, Start date: 10/16/11 6:52:00, Stop date: 10/16/11 6:52:00 IVPB No Longer Active Cespedes 10/02 [facility] lidocaine 5 mL, Route: S&SWALL OW, Drug form: SOLN, QID- Before Meals, PRN Mouth Pain, Start date: 10/16/11 5:56:00, Duration: 30 day, Stop date: 11/15/11 5:55:00 S&SWALLOW No Longer Active [facility] 10/16/2011 [facility] Phenergan 12.5 mg, 0.5 mL, Rou te: IVPB, Q6H, PRN Nausea, Start date: 10/15/11 21:50:00, Duration: 30 day, Stop date: 11/14/11 21:49:00 IVPB No Longer Active [facility] 10/15 [facility] Zofran 4 mg, 1 tab, Route: PO, Drug form: TAB, Q8H, PRN Nausea, Start date: 10/15/11 21:50:00, Duration: 30 day, Stop date: 11/14/11 21:49:00 PO No Longer Active [facility] 10/16/2011 [facility] Ativan 0.5 mg, 0.25 mL, Route: IVP, Drug form: INJ, Q4H, PRN Agitation, Start date: 10/15/11 21:45:00, Duration: 30 day, Stop date: 11/14/11 21:44:00 IVP No Longer Active [facility] 10/16/2011 [facility] Zosyn 2.25 gm, 1 ea, Route: IV PB, [id number], Start date: 10/15/11 21:00:00, Duration: 30 day, Stop date: 11/14/11 13:00:00 IVPB No Longer Active Fer[place] 10/16/2011 [facility] Habitrol 21 mg, 1 patch, Route : TOP, Drug form: ERFILM, Q24H, Start date: 10/15/11 20:00:00, Duration: 30 day, Stop date: 11/13/11 20:00:00 TOP No Longer Active Jared 10/16/2011 [facility] Questran Light 4 gm, 1 pkt, Ro [place]: PO, Drug form: PDR/REC, Q6H, Start date: 10/15/11 18:00:00, Duration: 30 day, Stop date: 11/14/11 12:00:00 PO No Longer Active [facility] 10/15/2011 [facility] Xanax 2 mg, 4 tab, Route: PO, Drug form: TAB, BID, Start date: 10/15/11 17:00:00, Duration: 30 day, Stop date: 11/14/11 9:00:00 PO No Longer Active [facility] 10/14 [facility] baclofen 10 mg, 1 tab, Route: PO, Drug form: TAB, BID, Start date: 10/15/11 17:00:00, Duration: 30 day, Stop date: 11/14/11 9:00:00 PO No Longer Active [facility] 10/14 [facility] Dolophine 40 mg, 4 tab, Route: PO, Drug form: TAB, BID, Start date: 10/15/11 17:00:00, Duration: 30 day, Stop date: 11/14/11 9:00:00 PO No Longer Active [facility] 10/14 [facility] Protonix 40 mg, 1 tab, Route: PO, Drug form: ECTAB, Before Dinner, Start date: 10/15/11 16:30:00, Duration: 30 day, Stop date: 11/13/11 16:30:00 PO No Longer Active [facility] 10/15/2011 [facility] acetaminophen-hydrocodone 325 mg-10 mg oral tablet 1 tab, Route: PO, Drug Form: TAB, Q4H, PRN Pain, Start date: 10/15/11 15:44:00, Duration: 30 day, Stop date: 11/14/11 15:43:00 PO No Longer Active [facility] 10/15/2011 [facility] aluminum hydroxide-magnesium hydroxide 2 00 mg-200 mg/5 mL oral suspension 30 mL, Route: PO, Drug Form: SUSP, Q6H, PRN See Nurse's Notes, Start date: 10/15/11 15:44:00, Duration: 30 day, Stop date: 11/14/11 15:43:00 PO No Longer Active Jared 10/14 [facility] loperamide 4 mg, 2 cap, Route: PO, Drug form: CAP, PRN, PRN Diarrhea, Start date: 10/15/11 15:44:00, Duration: 30 day, Stop date: 11/14/11 15:43:00 PO No Longer Active Jared 10/15/2011 [facility] nitroglycerin 0.4 mg sublingual tablet 0.4 mg, 1 tab, Route: SL, Drug form: TAB, PRN, PRN Chest Pain, Start date: 10/15/11 13:16:00, Duration: 30 day, Stop date: 11/14/11 13:15:00 SL No Longer Active Jared 10/15/2011 [facility] DOPamine 800 mg in D5W Premix IV 800 mg 800 mg, 250 mL, Rate: acls, Route: IV, Total Volume: 250, Start date: 10/15/11 13:16:00, Duration: 30 day, Stop date: 11/14/11 13:15:00, Replace Every: 24 hr IV No Longer Active [facility] 10/15/2011 [facility] atropine 1 mg, 10 mL, Route: I V, Drug form: INJ, PRN, PRN Asystole, Start date: 10/15/11 13:15:00, Duration: 30 day, Stop date: 11/14/11 13:14:00 IV No Longer Active Jared 10/15/2011 [facility] epinephrine 1 mg, 10 mL, Route : IV, Drug form: INJ, PRN, PRN Asystole, Start date: 10/15/11 13:15:00, Duration: 30 day, Stop date: 11/14/11 13:14:00 IV No Longer Active Jared 10/15/2011 [facility] Cordarone 150 mg, 3 mL, Route: IV, PRN, PRN Other -See Comment, Start date: 10/15/11 13:15:00, Duration: 30 day, Stop date: 11/14/11 13:14:00 IV No Longer Active Jared 10/15/2011 [facility] Dextrose 5% with 0.45% NaCl IV 1,000 mL + sodium bicarbonate 8.4% 75 mEq 1,000 mL, Rate: 150 ml/hr, Infuse over: 7.2 hr, Route: IV, Dosing Weight 68.182 kg, Total Volume: 1,075, Start date: 10/15/11 10:00:00, Duration: 30 day, Stop date: 11/14/11 9:59:00 IV No Longer Active Fox 10/15/2011 [facility] Sodium Chloride 0.9% IV 1,000 mL 1,000 mL, Rate: 150 ml/hr, Infuse over: 6.7 hr, Route: IV, Dosing Weight 68.182 kg, Total Volume: 1,000, Start date: 10/15/11 3:30:00, Duration: 30 day, Stop date: 11/14/11 3:29:00 IV No Longer Active [facility] 10/15/2011 [facility] Sodium Chloride 0.9% (Bolus) IV 1000 mL 1,000 mL, Rate: 1,000 ml/hr, Infuse over: 1 hr, Route: IV, kg, Total Volume: 1,000, Bolus Dose, Priority: STAT, Start date: 10/14/11 23:41:00, Duration: 1 doses or times, Stop date: 10/15/11 0:40:00 IV No Longer Active [facility] 10/15/2011 [facility] acetaminophen-hydrocodone 325 mg-5 mg oral tablet 2 tab, Route: PO, Drug Form: TAB, Q4H, PRN Pain, Start date: 09/11/11 11:36:00, Duration: 30 day, Stop date: 10/11/11 11:35:00 PO No Longer Active Jared 09/11/2011 [facility] Dilaudid 0.5 mg, Route: IV, ON CE, Priority: NOW, Start date: 09/11/11 10:18:00, Stop date: 09/11/11 10:18:00 IV No Longer Active Jasonnstechjada 09/11/2011 [facility] Demerol HCl 12.5 mg, Route: IV , ONCE, Start date: 09/11/11 10:18:00, Stop date: 09/11/11 10:18:00 IV No Longer Active Pat 09/11/2011 [facility] acetaminophen-hydrocodone 325 mg-5 mg oral tablet 1 tab, Route: PO, Drug Form: TAB, ONCE, Start date: 09/10/11 2:04:00, Stop date: 09/10/11 2:04:00 PO No Longer Active Aldana 09/10/2011 [facility] Santyl 1 appl, Route: TOP, Aicha ly, Drug form: OINT, Start date: 09/07/11 19:00:00, Duration: 30 day, Stop date: 10/07/11 9:00:00 TOP No Longer Active Jraed 09/08 [facility] Zosyn 3.375 gm, Route: IVPB, A BXQ8H, Start date: 09/07/11 16:00:00, Duration: 30 day, Stop date: 10/07/11 8:00:00 IVPB No Longer Active Jared 09/07/2011 [facility] vancomycin 1.25 gm, 250 mL, Ro salt river: IVPB, Drug form: INJ, Q12H, Start date: 09/07/11 14:00:00, Stop date: 10/07/11 13:00:00 IVPB No Longer Active Jared 09/07/2011 [facility] vancomycin 1 gm, Route: IVPB, ONCE, Start date: 09/07/11 2:08:00, Stop date: 09/07/11 2:08:00 IVPB No Longer Active Ferreira 09/07/2011 [facility] cefazolin 1 gm, Route: IVPB, A BXQ8H, Start date: 09/06/11 22:00:00, Duration: 30 day, Stop date: 10/06/11 16:00:00 IVPB No Longer Active Jared 09/07/2011 [facility] Sodium Chloride 0.9% IV 25 mL, Route: IV, PRN, Line Flush, Start date: 09/06/11 21:19:00, Duration: 30 day, Stop date: 10/06/11 21:18:00 IV No Longer Active Jared 09/07/2011 [facility] BD Normal Saline Flush 10 mL, Route: IV, Drug Form: INJ, PRN, PRN Line Flush, Start date: 09/06/11 21:19:00, Duration: 30 day, Stop date: 10/06/11 21:18:00 IV No Longer Active Jared 09/07/2011 [facility] Lexapro 20 mg, 1 tab, Route: P O, Drug form: TAB, Daily, Start date: 09/06/11 21:18:00, Duration: 30 day, Stop date: 10/06/11 9:00:00 PO No Longer Active Jared 09/07 [facility] acetaminophen-hydrocodone 325 mg-5 mg oral tablet 1 tab, Route: PO, Drug Form: TAB, Q8H, PRN Pain, Start date: 09/06/11 21:17:00, Stop date: 10/06/11 21:16:00 PO No Longer Active Jared 09/07/2011 [facility] Neurontin 300 mg, 1 cap, Route : PO, Drug form: CAP, TID, Start date: 09/06/11 21:16:00, Duration: 30 day, Stop date: 10/06/11 17:00:00 PO No Longer Active Jared 09/07 [facility] Dolophine 40 mg, 4 tab, Route: PO, Drug form: TAB, BID, Start date: 09/06/11 21:16:00, Duration: 30 day, Stop date: 10/06/11 17:00:00 PO No Longer Active Jared 09/07 [facility] baclofen 10 mg, 1 tab, Route: PO, Drug form: TAB, BID, Start date: 09/06/11 21:15:00, Stop date: 10/06/11 17:00:00 PO No Longer Active Jared 09/07/2011 [facility] Xanax 2 mg, 2 tab, Route: PO, Drug form: TAB, BID, Start date: 09/06/11 21:14:00, Stop date: 10/06/11 17:00:00 PO No Longer Active Jared 09/07/2011 [facility] Xanax 2 mg oral tablet 1 tab, PO, BID, PRN, Anxiety, Substitution Allowed PO Active 04/18/2011 [facility] [place] 350 mg oral tablet 1 tab, PO, TID, 21 tab, Substitution Allowed, TAB PO Active 04/18/2011 [facility] [place] 5/325 oral tablet 1 tab, PO, Q4H, PRN, for pain, Substitution Allowed, Maintenance, TAB PO Active 04/18/2011 [facility] [place] 10/325 oral tablet 1-2 t ab, PO, Q4-6H, PRN, 30 tab, Pain, Substitution Allowed, Maintenance PO Active 04/18/2011 [facility] Ditropan XL 15 mg oral tablet, extended release BID, Substitution Allowed Active 04/15/2011 [facility] Allergies, Adverse Reactions, Alerts Substance Category Reaction Severity Reaction type Status Date Reported Comments Source Latex Assertion Propensity to adverse reacti ons to substance Active [facility] morphine Assertion Drug allergy Active [facility] naproxen Assertion Drug allergy Active [facility] NKFA Assertion Food allergy Active [facility] traMADol<sup>1, 2</sup> Assert ion Drug aller gy Active berenice ent said he is allergic to tramadol patient stated he is not allergic to tramadol. He overdosed on tramadol and had a seizure about a year ago [facility] DULoxetine Assertion Drug allergy Active [facility] traMADol Assertion Drug allergy Active [facility] Immunizations Immunization Date Given Site Status Last Updated Comments Source hepatitis B adult vaccine 02/02 Right deltoid completed [facility] pneumococcal 13-valent vaccine 08/13/2016 Left deltoid completed [facility] influenza virus vaccine, inactivated 05/28/2015 Right Deltoid completed [facility] pneumococcal 23-valent vaccine 05/16/2012 Left deltoid completed [facility] influenza virus vaccine, inactivated 05/16/2012 Left deltoid completed [facility] pneumococcal 23-valent vaccine 05/16/2012 completed Shady castorena [facility] influenza virus vaccine, inactivated 05/16/2012 completed H kell [facility] Results Order Name Results Value Reference Range Date Interpretation Comments Source CHEM PANEL Glucose Lvl 94 70 - 99 12/09/2019 [facility] CHEM PANEL BUN 29 7 - 22 12/09/2019 [facility] CHEM [facility] Creatinine Lvl 1.67 0.50 - 1.40 12/09/2019 [facility] CHEM PANEL Sodium Lvl 138 135 - 145 12/09/2019 [facility] CHEM [facility] Potassium Lvl 5.0 3.5 - 5.1 12/09/2019 [facility] CHEM PANEL Chloride Lvl 110 95 - 109 12/09/2019 [facility] CHEM PANEL CO2 21 24 - 32 12/09/2019 [facility] CHEM PANEL Calcium Lvl 8.7 8.5 - 10.5 12/09/2019 [facility] CHEM PANEL AGAP 12.0 10.0 - 20.0 12/09/2019 [facility] CHEM [facility] eGFR 53 12/09/2019 Result Comment: The eGFR [...] should be multiplied by the estimated BMI. [facility] CHEM PANEL Glucose Lvl 90 70 - 99 12/07/2019 [facility] CHEM PANEL BUN 35 7 - 22 12/07/2019 [facility] CHEM [facility] Creatinine Lvl 2.38 0.50 - 1.40 12/07/2019 [facility] CHEM PANEL Sodium Lvl 133 135 - 145 12/07/2019 [facility] CHEM PANEL Potassium Lvl 4.8 3.5 - 5.1 12/07/2019 [facility] CHEM PANEL Chloride Lvl 107 95 - 109 12/07/2019 [facility] CHEM PANEL CO2 19 24 - 32 12/07/2019 [facility] CHEM PANEL Calcium Lvl 7.9 8.5 - 10.5 12/07/2019 [facility] CHEM PANEL AGAP 11.8 10.0 - 20.0 12/07/2019 [facility] CHEM PANEL eGFR 34 12/07/2019 [...] should be multiplied by the estimated BMI. [facility] HEMATOLOGY WBC 5.2 3.7 - 10.4 12/07/2019 [facility] RBC 3.15 4.70 - 6.10 12/07/2019 [facility] Hgb 7.9 14.0 - 18.0 12/07/2019 [facility] Hct 24.6 42.0 - 54.0 12/07/2019 [facility] MCV 78.1 80.0 - 94.0 12/07/2019 [facility] MCH 25.0 27.0 - 31.0 12/07/2019 [facility] MCHC 32.0 32.0 - 36.0 12/07/2019 [facility] RDW 23.2 11.5 - 14.5 12/07/2019 [facility] Platelet 212 133 - 450 12/07/2019 [facility] MPV 8.3 7.4 - 10.4 12/07/2019 [facility] RBC Morph See N ote (12/07/19 4:53 AM) Normal 12/07/2019 [facility] Plt Morph Leeann l (12/07/19 4:53 AM) Normal 12/07/2019 [facility] Segs 68.5 45.0 - 75.0 12/07/2019 [facility] Lymphocytes 18.8 20.0 - 40.0 12/07/2019 [facility] HEMATOLOGY Monocytes 8.5 2.0 - 12.0 12/07/2019 [facility] HEMATOLOGY Eosinophils 3.0 0.0 - 4.0 12/07/2019 [facility] Basophils 1.2 0.0 - 1.0 12/07/2019 [facility] Neutrophils # 3.5 1.5 - 8.1 12/07/2019 [facility] Lymphocytes # 1.0 1.0 - 5.5 12/07/2019 [facility] Monocytes # 0.4 0.0 - 0.8 12/07/2019 [facility] Eosinophils # 0.2 0.0 - 0.5 12/07/2019 [facility] Basophils # 0.1 0.0 - 0.2 12/07/2019 [facility] Anisocyte 1+ *ABN* (12/07/19 4:53 AM) None Seen 12/07/2019 [facility] Microcyte 1+ *ABN* (12/07/19 4:53 AM) None Seen 12/07/2019 [facility] Spherocyte Occas ional *ABN* (12/07/19 4:53 AM) None Seen 12/07/2019 [facility] CHEM PANEL Glucose Lvl 111 70 - 99 12/06/2019 [facility] CHEM PANEL BUN 38 7 - 22 12/06/2019 [facility] CHEM PANEL Creatinine Lvl 2.62 0.50 - 1.40 12/06/2019 [facility] CHEM PANEL Sodium Lvl 136 135 - 145 12/06/2019 [facility] CHEM PANEL Potassium Lvl 4.7 3.5 - 5.1 12/06/2019 [facility] CHEM PANEL Chloride Lvl 109 95 - 109 12/06/2019 [facility] CHEM PANEL CO2 21 24 - 32 12/06/2019 [facility] CHEM PANEL Calcium Lvl 7.6 8.5 - 10.5 12/06/2019 [facility] CHEM PANEL AGAP 10.7 10.0 [...] should be multiplied by the estimated BMI. [facility] CHEM PANEL Lactic Acid Lvl 1.5 0.5 - 2.2 12/06/2019 [facility] CHEM PANEL Procalcitonin Lvl 148.3 5 0.00 - 0.10 12/06/2019 Result Comment: Critical Result(s) jamil d hallie otoole at Tan_12/06/2019 12:39 by _. Read back OK. [facility] HEMATOLOGY WBC 9.9 3.7 - 10.4 12/06/2019 [facility] RBC 3.34 4.70 - 6.10 12/06/2019 [facility] Hgb 8.4 14.0 - 18.0 12/06/2019 [facility] Hct 26.3 42.0 - 54.0 12/06/2019 [facility] MCV 78.8 80.0 - 94.0 12/06/2019 [facility] MCH 25.0 27.0 - 31.0 12/06/2019 [facility] MCHC 31.7 32.0 - 36.0 12/06/2019 [facility] RDW 22.9 11.5 - 14.5 12/06/2019 [facility] Platelet 209 133 - 450 12/06/2019 [facility] MPV 8.6 7.4 - 10.4 12/06/2019 [facility] WBC 8.1 3.7 - 10.4 12/05/2019 [facility] RBC 3.86 4.70 - 6.10 12/05/2019 [facility] Hgb 9.4 14.0 - 18.0 12/05/2019 [facility] Hct 30.3 42.0 - 54.0 12/05/2019 [facility] MCV 78.6 80.0 - 94.0 12/05/2019 [facility] MCH 24.4 27.0 - 31.0 12/05/2019 [facility] MCHC 31.1 32.0 - 36.0 12/05/2019 [facility] HEMATOLOGY RDW 23.7 11.5 - 14.5 12/05/2019 [facility] HEMATOLOGY Platelet 262 133 - 450 12/05/2019 [facility] HEMATOLOGY MPV 8.4 7.4 - 10.4 12/05/2019 [facility] HEMATOLOGY Segs 61.5 45.0 - 75.0 12/04/2019 [facility] HEMATOLOGY Lymphocytes 22.4 20.0 - 40.0 12/04/2019 [facility] HEMATOLOGY Monocytes 11.6 2.0 - 12.0 12/04/2019 [facility] HEMATOLOGY Eosinophils 2.0 0.0 - 4.0 12/04/2019 [facility] HEMATOLOGY Basophils 2.5 0.0 - 1.0 12/04/2019 [facility] HEMATOLOGY Neutrophils # 3.7 1.5 - 8.1 12/04/2019 [facility] HEMATOLOGY Lymphocytes # 1.4 1.0 - 5.5 12/04/2019 [facility] HEMATOLOGY Monocytes # 0.7 0.0 - 0.8 12/04/2019 [facility] HEMATOLOGY Eosinophils # 0.1 0.0 - 0.5 12/04/2019 [facility] Basophils # 0.2 0.0 - 0.2 12/04/2019 [facility] CHEM PANEL Albumin Lvl 2.0 3.5 - 5.0 12/03/2019 [facility] CHEM PANEL Phosphorus 3.2 2.5 - 4.5 12/03/2019 [facility] CHEM PANEL Magnesium Lvl 1.6 1.8 - 2.4 12/03/2019 [facility] CHEM PANEL Phosphorus 3.2 2.5 - 4.5 12/03/2019 [facility] CHEM PANEL Lactic Acid Lvl 0.8 0.5 - 2.2 12/03/2019 [facility] URINE AND STOOL UA Turbidity Slight *ABN* (12/02/19 9:41 PM) Clear 12/03/2019 [facility] URINE AND STOOL UA Spec Grav 1.006 <=1.030 12/03/2019 [facility] URINE AND STOOL UA pH 6.0 5.0 - 8.0 12/03/2019 [facility] URINE AND STOOL UA Protein 30 mg/dL Negative mg/dL 12/03/2019 [facility] URINE AND STOOL UA Glucose Negative mg/dL Negative mg/dL 12/03/[address] [facility] [address] URINE AND STOOL UA Ketones Negative mg/dL Negative mg/dL 12/03/[address] [facility] [address] URINE AND STOOL UA Bili Negative [...] Bacteria Occasional /HPF None Seen /HPF 12/03/2019 [facility] URINE AND STOOL UA Hyph Yeast Occasional *ABN* (12/02/19 9:41 PM) None Seen 12/03/2019 [facility] URINE AND STOOL UA Sq Epi None Seen 12/03/2019 [facility] URINE AND STOOL UA Color Ltyellow 12/03/2019 [facility] URINE AND STOOL UA Urobilinogen <=1.0 mg/dL 0.1 - 1.0 12/03/2019 [facility] Culture: Urine No Growth 12/03/2019 [facility] CARDIAC ENZYMES Troponin-I <0.02 0.00 - 0.40 12/03/2019 [facility] CARDIAC ENZYMES Total CK 103 12 - 191 12/03/2019 [facility] CHEM PANEL Total Protein 7.6 6.4 - 8.4 12/03/2019 [facility] CHEM PANEL Albumin Lvl 2.1 3.5 - 5.0 12/03/2019 [facility] CHEM PANEL ALT 18 0 - 65 12/03/2019 [facility] CHEM PANEL AST 14 0 - 37 12/03/2019 [facility] CHEM PANEL Alk Phos 89 39 - 136 12/03/2019 [facility] CHEM PANEL Bili Total 0.3 0.2 - 1.3 12/03/2019 [facility] CHEM PANEL B/C Ratio 25 6 - 25 12/03/2019 [facility] CHEM PANEL Globulin 5.5 2.7 - 4.2 12/03/2019 [facility] CHEM PANEL A/G Ratio 0.4 0.7 - 1.6 12/03/2019 [facility] CHEM PANEL Magnesium Lvl 1.6 1.8 - 2.4 12/03/2019 [facility] CHEM PANEL Phosphorus 3.0 2.5 - 4.5 12/03/2019 [facility] HEMATOLOGY PT 14.8 12.0 - 14.7 12/03/2019 [facility] HEMATOLOGY INR 1.15 0.85 - 1.17 12/03/2019 [facility] HEMATOLOGY PTT 35.1 22.9 - 35.8 12/03/2019 [facility] HEMATOLOGY RBC Morph See N ote (12/02/19 9:38 PM) Normal 12/03/2019 [facility] HEMATOLOGY Plt Morph Leeann l (12/02/19 9:38 PM) Normal 12/03/2019 [facility] HEMATOLOGY Segs 63.4 45.0 - 75.0 12/03/2019 [facility] HEMATOLOGY Lymphocytes 21.5 20.0 - 40.0 12/03/2019 [facility] HEMATOLOGY Monocytes 11.8 2.0 - 12.0 12/03/2019 [facility] HEMATOLOGY Eosinophils 2.5 0.0 - 4.0 12/03/2019 [facility] HEMATOLOGY Basophils 0.8 0.0 - 1.0 12/03/2019 [facility] HEMATOLOGY Neutrophils # 6.4 1.5 - 8.1 12/03/2019 [facility] Lymphocytes # 2.2 1.0 - 5.5 12/03/2019 [facility] Monocytes # 1.2 0.0 - 0.8 12/03/2019 [facility] Eosinophils # 0.3 0.0 - 0.5 12/03/2019 [facility] Basophils # 0.1 0.0 - 0.2 12/03/2019 [facility] Anisocyte 1+ *ABN* (12/02/19 9:38 PM) None Seen 12/03/2019 [facility] Microcyte 1+ *ABN* (12/02/19 9:38 PM) None Seen 12/03/2019 [facility] HEMATOLOGY Spherocyte Occas ional *ABN* (12/02/19 9:38 PM) None Seen 12/03/2019 [facility] CHEM PANEL Glucose Lvl 107 70 - 99 11/18/2019 [facility] CHEM PANEL BUN 20 7 - 22 11/18/2019 [facility] CHEM PANEL Creatinine Lvl 1.61 0.50 - 1.40 11/18/2019 [facility] CHEM PANEL Sodium Lvl 134 135 - 145 11/18/2019 [facility] CHEM PANEL Potassium Lvl 4.4 3.5 - 5.1 11/18/2019 [facility] CHEM PANEL Chloride Lvl 105 95 - 109 11/18/2019 [facility] CHEM PANEL CO2 22 24 - 32 11/18/2019 [facility] CHEM PANEL Calcium Lvl 7.9 8.5 - 10.5 11/18/2019 [facility] CHEM PANEL AGAP 11.4 10.0 - 20.0 11/18/2019 [facility] CHEM PANEL eGFR 55 11/18/2019 [...] should be multiplied by the estimated BMI. [facility] HEMATOLOGY WBC 5.7 3.7 - 10.4 11/18/2019 [facility] HEMATOLOGY RBC 3.33 4.70 - 6.10 11/18/2019 [facility] HEMATOLOGY Hgb 8.2 14.0 - 18.0 11/18/2019 [facility] HEMATOLOGY Hct 25.8 42.0 - 54.0 11/18/2019 [facility] HEMATOLOGY MCV 77.5 80.0 - 94.0 11/18/2019 [facility] HEMATOLOGY MCH 24.6 27.0 - 31.0 11/18/2019 [facility] HEMATOLOGY MCHC 31.7 32.0 - 36.0 11/18/2019 [facility] HEMATOLOGY RDW 20.0 11.5 - 14.5 11/18/2019 [facility] HEMATOLOGY Platelet 120 133 - 450 11/18/2019 [facility] HEMATOLOGY MPV 8.7 7.4 - 10.4 11/18/2019 [facility] CHEM PANEL Glucose Lvl 88 70 - 99 11/17/2019 [facility] CHEM PANEL BUN 24 7 - 22 11/17/2019 [facility] CHEM PANEL Creatinine Lvl 1.37 [...] PANEL BUN 27 7 - 22 11/16/2019 [facility] CHEM PANEL Creatinine Lvl 1.53 [...] should be multiplied by the estimated BMI. [facility] HEMATOLOGY WBC 5.3 3.7 - 10.4 11/16/2019 [facility] RBC 3.72 4.70 - 6.10 11/16/2019 [facility] Hgb 9.2 14.0 - 18.0 11/16/2019 [facility] Hct 29.1 42.0 - 54.0 11/16/2019 [facility] MCV 78.3 80.0 - 94.0 11/16/2019 [facility] MCH 24.7 27.0 - 31.0 11/16/2019 [facility] MCHC 31.5 32.0 - 36.0 11/16/2019 [facility] RDW 19.9 11.5 - 14.5 11/16/2019 [facility] Platelet 162 133 - 450 11/16/2019 [facility] MPV 9.2 7.4 - 10.4 11/16/2019 [facility] TOXICOLOGY Vanco Lvl 12.5 11/15/2019 [facility] WBC 4.8 3.7 - 10.4 11/14/2019 [facility] RBC 3.45 4.70 - 6.10 11/14/2019 [facility] Hgb 8.4 14.0 - 18.0 11/14/2019 [facility] HEMATOLOGY Hct 27.3 42.0 - 54.0 11/14/2019 [facility] MCV 79.0 80.0 - 94.0 11/14/2019 [facility] MCH 24.4 27.0 - 31.0 11/14/2019 [facility] MCHC 30.9 32.0 - 36.0 11/14/2019 [facility] HEMATOLOGY RDW 19.8 11.5 - 14.5 11/14/2019 [facility] HEMATOLOGY Platelet 175 133 - 450 11/14/2019 [facility] HEMATOLOGY MPV 8.6 7.4 - 10.4 11/14/2019 [facility] TOXICOLOGY Vanco Lvl 15.5 11/13/2019 [facility] CHEM PANEL Total Protein 6.5 6.4 - 8.4 11/13/2019 [facility] CHEM PANEL Albumin Lvl 2.2 3.5 - 5.0 11/13/2019 [facility] CHEM PANEL ALT 19 0 - 65 11/13/2019 [facility] CHEM PANEL AST 16 0 - 37 11/13/2019 [facility] CHEM PANEL Alk Phos 75 39 - 136 11/13/2019 [facility] CHEM PANEL Bili Total 0.2 0.2 - 1.3 11/13/2019 [facility] CHEM PANEL B/C Ratio 17 6 - 25 11/13/2019 [facility] CHEM PANEL Globulin 4.3 2.7 - 4.2 11/13/2019 [facility] CHEM PANEL A/G Ratio 0.5 0.7 - 1.6 11/13/2019 [facility] TOXICOLOGY Vanco Lvl 17.1 11/11/2019 [facility] IMMUNOLOGY Homocyst Tot 12.0 0.0 - 14.5 11/11/2019 Result Comment: Please n ote reference interval change [facility] IMMUNOLOGY MMA Qnt 485 0 - 378 11/11/2019 [facility] ANEMIA STUDY Folate Lvl 9.0 >=3.0 ng/mL 11/10/2019 [facility] ANEMIA STUDY Ferritin Lvl 82 22 - 275 11/10/2019 [facility] ANEMIA STUDY Vitamin B12 Lvl 285 254 - 1320 11/10/2019 [facility] ANEMIA STUDY Iron 21 45 - 160 11/10/2019 [facility] ANEMIA STUDY TIBC 168 228 - 428 11/10/2019 [facility] ANEMIA STUDY UIBC 147 110 - 370 11/10/2019 [facility] ANEMIA STUDY % Satur Fe 12 12 - 57 11/10/2019 [facility] CHEM PANEL Erythropoietin 13.6 2.6 - 18.5 11/10/2019 Result Comment: [employer] D xI 800 Immunoassay System

Values obtained with different assay methods or kits cannot
be used interchangeably. Results cannot be interpreted as
absolute evidence of the presence or absence of malignant
disease.
Performed At: [facility]
[address], [place] [id number]
Carmelo Montana MD Ph:[phone] [facility] HEMATOLOGY Retic Auto 1.3 0.5 - 1.5 11/10/2019 [facility] TOXICOLOGY Vanco Tr 9.8 11/09/2019 [facility] TOXICOLOGY Vanco Tr TND 12:00 11/09/2019 [facility] Culture: Urine 1000-10,000/cfu /ml Melody tropicalis 11/08/[address] [facility] [address] TOXICOLOGY Vanco Tr 18.8 11/08/2019 [facility] TOXICOLOGY Vanco Tr TND 2330 11/08/2019 [facility] IMMUNOLOGY Albumin % 44.8 55.8 - 66.1 11/07/2019 [facility] IMMUNOLOGY Alpha 1 % 7.8 2.8 - 4.9 11/07/2019 [facility] IMMUNOLOGY Alpha 2 % 13.4 7.0 - 11.9 11/07/2019 [facility] IMMUNOLOGY Beta % 15.2 7.8 - 13.7 11/07/2019 [facility] IMMUNOLOGY Gamma % 18.8 11.1 - 18.7 11/07/2019 [facility] IMMUNOLOGY Albumin (SPE) 3.58 3.57 - 5.55 11/07/2019 [facility] IMMUNOLOGY Alpha 1 Glob 0.62 0.18 - 0.41 11/07/2019 [facility] IMMUNOLOGY Alpha 2 Glob 1.07 0.45 - 1.00 11/07/2019 [facility] IMMUNOLOGY Beta Glob 1.22 0.50 - 1.15 11/07/2019 [facility] IMMUNOLOGY Gamma Glob 1.50 0.71 - 1.57 11/07/2019 [facility] IMMUNOLOGY Tot Prot (SPE) 8.0 6.4 - 8.4 11/07/2019 [facility] IMMUNOLOGY SPE Interp Total protein and serum albumin levels are within reference ranges. Serum capillary protein electrophoresis shows elevated alpha-1 and alpha-2 globulin fractions. No monoclonal proteins are identified. The electrophoretic pattern is consistent with the acute phase of an inflammatory process. Clinical correlation is required. Interpretation performed at [facility]. 11/07/2019 [facility] SPECIAL CHEMISTRY PSA 0.94 0.00 - 4.00 11/07/2019 [facility] VANCOMYCIN:SUSC:PT:ISOLATE:ORDQN:GRADIENT STRIP Gram Stain Report No Wbc'S Or Organisms Seen 11/05/2019 [facility] VANCOMYCIN:SUSC:PT:ISOLATE:ORDQN:GRADIENT STRIP Culture: Aspirate/Body Fluid/Tissue Growth In Subculture Broth Only : Streptococcus mitis 11/05/2019 [facility] VANCOMYCIN:SUSC:PT:ISOLATE:ORDQN:GRADIENT STRIP Streptococcus mitis Streptococcus mitis 11/05/2019 [facility] Culture: Anaerobic No Anaerobes Is olated After 5 Days 11/05/2019 [facility] TRIMETHOPRIM+SULFAMETHOXAZOLE:SUSC:PT:ISOLATE:ORDQN:RI C Gram Stain Report No Wbc'S Or Organisms Seen 11/05/2019 [facility] TRIMETHOPRIM+SULFAMETHOXAZOLE:SUSC:PT:ISOLATE:ORDQN:RI C Culture: Aspirate/Body Fluid/Tissue Rare Methicillin Resistant Staphylococcu s aureus 11/05/2019 [facility] TRIMETHOPRIM+SULFAMETHOXAZOLE:SUSC:PT:ISOLATE:ORDQN:RI C Methicillin Resistant Staphylococcus aureus Methicillin Resistant Staphylococcus aureus 11/05/2019 [facility] Culture: Anaerobic No Anaerobes Is olated After 5 Days 11/05/2019 [facility] LIPIDS Trig 133 <=149 mg/dL 11/05/2019 [facility] LIPIDS Chol 167 <=199 mg/dL 11/05/2019 [facility] LIPIDS HDL 34 >=61 mg/dL 11/05/2019 [facility] LIPIDS CHD Risk 4.91 4.00 - 7.30 11/05/2019 [facility] LIPIDS LDL (Calculated) 106 <=99 mg/dL 11/05/2019 [facility] LIPIDS VLDL 27 11/05/2019 [facility] SPECIAL CHEMISTRY Hgb A1C 5.1 <=5.6 % 11/05/2019 [facility] CHEM PANEL Total Protein 8.0 6.4 - 8.4 11/05/2019 [facility] CHEM PANEL Albumin Lvl 2.8 3.5 - 5.0 11/05/2019 [facility] CHEM PANEL ALT 16 0 - 65 11/05/2019 [facility] CHEM PANEL AST 8 0 - 37 11/05/2019 [facility] CHEM PANEL Alk Phos 78 39 - 136 11/05/2019 [facility] CHEM PANEL Bili Total 0.2 0.2 - 1.3 11/05/2019 [facility] CHEM PANEL B/C Ratio 11 6 - 25 11/05/2019 [facility] CHEM PANEL Globulin 5.2 2.7 - 4.2 11/05/2019 [facility] CHEM PANEL A/G Ratio 0.5 0.7 - 1.6 11/05/2019 [facility] HEMATOLOGY Sed Rate 93 0 - 15 11/05/2019 [facility] IMMUNOLOGY C-REACTIVE PROTEIN 44.6 <=2.9 mg/L 11/05/2019 [facility] CIPROFLOXACIN:SUSC:PT:ISOLATE:ORDQN:NHUNG Gram Stain Report Rare Wbc'S; Rare Gram Positive Cocci In Clusters 11/04/2019 [facility] CIPROFLOXACIN:SUSC:PT:ISOLATE:ORDQN:NHUNG Culture: Wound/Abscess w/Gram Stain Many Methicillin Resistant Staphylococcu s aureus 11/04/2019 [facility] CIPROFLOXACIN:SUSC:PT:ISOLATE:ORDQN:NHUNG Methicillin Resistant Staphylococcus aureus Methicillin Resistant Staphylococcus aur eus 11/04/2019 [facility] CHEM PANEL eGFR 88 07/07/2018 [...] should be multiplied by the estimated BMI. [facility] CHEM PANEL ALT 11 0 - 65 07/07/2018 [facility] CHEM PANEL A/G Ratio 0.5 0.7 - 1.6 07/07/2018 [facility] CHEM PANEL Globulin 5.5 2.7 - 4.2 07/07/2018 [facility] CHEM PANEL Albumin Lvl 3.0 3.5 - 5.0 07/07/2018 [facility] CHEM PANEL Total Protein 8.5 6.4 - 8.4 07/07/2018 [facility] CHEM PANEL Alk Phos 106 39 - 136 07/07/2018 [facility] CHEM PANEL AST 18 0 - 37 07/07/2018 [facility] CHEM PANEL Bili Total 0.5 0.2 - 1.3 07/07/2018 [facility] CHEM PANEL B/C Ratio 15 6 - 25 07/07/2018 [facility] CHEM PANEL Calcium Lvl 10.0 8.5 - 10.5 07/07/2018 [facility] CHEM PANEL AGAP 13.6 10.0 - 20.0 07/07/2018 [facility] CHEM PANEL CO2 22 24 - 32 07/07/2018 [facility] CHEM PANEL BUN 17 7 - 22 07/07/2018 [facility] CHEM PANEL Creatinine Lvl 1.10 0.50 - 1.40 07/07/2018 [facility] CHEM PANEL Sodium Lvl 142 135 - 145 07/07/2018 [facility] CHEM PANEL Potassium Lvl 4.6 3.5 - 5.1 07/07/2018 [facility] CHEM PANEL Chloride Lvl 111 95 - 109 07/07/2018 [facility] CHEM PANEL Glucose Lvl 84 70 - 99 07/07/2018 [facility] HEMATOLOGY Segs 55.7 45.0 - 75.0 07/07/2018 [facility] Lymphocytes 33.8 20.0 - 40.0 07/07/2018 [facility] Monocytes 7.8 2.0 - 12.0 07/07/2018 [facility] Eosinophils 1.8 0.0 - 4.0 07/07/2018 [facility] Basophils 0.9 0.0 - 1.0 07/07/2018 [facility] Monocytes # 0.9 0.0 - 0.8 07/07/2018 [facility] Eosinophils # 0.2 0.0 - 0.5 07/07/2018 [facility] Lymphocytes # 3.9 1.0 - 5.5 07/07/2018 [facility] Neutrophils # 6.5 1.5 - 8.1 07/07/2018 [facility] Basophils # 0.1 0.0 - 0.2 07/07/2018 [facility] Microcyte 1+ *ABN* (07/07/18 5:33 AM) None Seen 07/07/2018 [facility] Platelet 394 133 - 450 07/07/2018 [facility] MPV 9.1 7.4 - 10.4 07/07/2018 [facility] RDW 24.1 11.5 - 14.5 07/07/2018 [facility] MCHC 31.0 32.0 - 36.0 07/07/2018 [facility] RBC 4.01 4.70 - 6.10 07/07/2018 [facility] HEMATOLOGY Hgb 9.6 14.0 - 18.0 07/07/2018 [facility] HEMATOLOGY WBC 11.6 3.7 - 10.4 07/07/2018 [facility] HEMATOLOGY MCH 23.9 27.0 - 31.0 07/07/2018 [facility] HEMATOLOGY MCV 77.0 80.0 - 94.0 07/07/2018 [facility] HEMATOLOGY Hct 30.9 42.0 - 54.0 07/07/2018 [facility] TOXICOLOGY Acetaminoph Lvl <2 (07/06/18 3:14 PM) 10 - 20 07/06/2018 [facility] CHEM PANEL eGFR 79 07/06/2018 Result Comment: [...] should be multiplied by the estimated BMI. [facility] CHEM PANEL Glucose Lvl 102 70 - 99 07/06/2018 [facility] CHEM PANEL BUN 25 7 - 22 07/06/2018 [facility] CHEM PANEL Creatinine Lvl 1.20 0.50 - 1.40 07/06/2018 [facility] CHEM PANEL Albumin Lvl 2.6 3.5 - 5.0 07/06/2018 [facility] CHEM PANEL Alk Phos 104 39 - 136 07/06/2018 [facility] CHEM PANEL AST 14 0 - 37 07/06/2018 [facility] CHEM PANEL Total Protein 7.9 6.4 - 8.4 07/06/2018 [facility] CHEM PANEL ALT 15 0 - 65 07/06/2018 [facility] CHEM PANEL Potassium Lvl 4.5 3.5 - 5.1 07/06/2018 [facility] CHEM PANEL Sodium Lvl 141 135 - 145 07/06/2018 [facility] CHEM PANEL CO2 18 24 - 32 07/06/2018 [facility] CHEM PANEL Calcium Lvl 9.2 8.5 - 10.5 07/06/2018 [facility] CHEM PANEL Chloride Lvl 114 95 - 109 07/06/2018 [facility] CHEM PANEL Bili Total 0.2 0.2 - 1.3 07/06/2018 [facility] CHEM PANEL B/C Ratio 21 6 - 25 07/06/2018 [facility] CHEM PANEL AGAP 13.5 10.0 - 20.0 07/06/2018 [facility] CHEM PANEL A/G Ratio 0.5 0.7 - 1.6 07/06/2018 [facility] CHEM PANEL Globulin 5.3 2.7 - 4.2 07/06/2018 [facility] HEMATOLOGY MCH 24.0 27.0 - 31.0 07/06/2018 [facility] HEMATOLOGY MCV 74.8 80.0 - 94.0 07/06/2018 [facility] Hct 28.1 42.0 - 54.0 07/06/2018 [facility] MCHC 32.1 32.0 - 36.0 07/06/2018 [facility] HEMATOLOGY RDW 24.6 11.5 - 14.5 07/06/2018 [facility] WBC 8.1 3.7 - 10.4 07/06/2018 [facility] Hgb 9.0 14.0 - 18.0 07/06/2018 [facility] RBC 3.75 4.70 - 6.10 07/06/2018 [facility] [place] Platelet 374 133 - 450 07/06/2018 [facility] MPV 9.0 7.4 - 10.4 07/06/2018 [facility] Basophils # 0.0 0.0 - 0.2 07/06/2018 [facility] HEMATOLOGY Eosinophils # 0.2 0.0 - 0.5 07/06/2018 [facility] HEMATOLOGY Neutrophils # 5.8 1.5 - 8.1 07/06/2018 [facility] HEMATOLOGY Basophils 0.2 0.0 - 1.0 07/06/2018 [facility] HEMATOLOGY Lymphocytes # 1.6 1.0 - 5.5 07/06/2018 [facility] HEMATOLOGY Monocytes # 0.5 0.0 - 0.8 07/06/2018 [facility] HEMATOLOGY Eosinophils 2.4 0.0 - 4.0 07/06/2018 [facility] HEMATOLOGY Monocytes 6.7 2.0 - 12.0 07/06/2018 [facility] HEMATOLOGY Lymphocytes 19.9 20.0 - 40.0 07/06/2018 [facility] HEMATOLOGY Segs 70.8 45.0 - 75.0 07/06/2018 [facility] HEMATOLOGY Microcyte 2+ *ABN* (07/06/18 6:27 AM) None Seen 07/06/2018 [facility] HEMATOLOGY Anisocyte 1+ *ABN* (07/06/18 6:27 AM) None Seen 07/06/2018 [facility] CHEM PANEL Lactic Acid Lvl 1.0 0.5 - 2.2 07/05/2018 [facility] CHEM PANEL Albumin Lvl 2.7 3.5 - 5.0 07/05/2018 [facility] CHEM PANEL Total Protein 8.0 6.4 - 8.4 07/05/2018 [facility] CHEM PANEL Globulin 5.3 2.7 - 4.2 07/05/2018 [facility] CHEM PANEL Bili Total 0.3 0.2 - 1.3 07/05/2018 [facility] CHEM PANEL eGFR 52 07/05/2018 Result Comment: [...] should be multiplied by the estimated BMI. [facility] CHEM PANEL ALT 13 0 - 65 07/05/2018 [facility] CHEM PANEL A/G Ratio 0.5 0.7 - 1.6 07/05/2018 [facility] CHEM PANEL AST 23 0 - 37 07/05/2018 [facility] CHEM PANEL Alk Phos 115 39 - 136 07/05/2018 [facility] CHEM PANEL Glucose Lvl 78 70 - 99 07/05/2018 [facility] CHEM PANEL BUN 41 7 - 22 07/05/2018 [facility] CHEM PANEL Creatinine Lvl 1.70 0.50 - 1.40 07/05/2018 [facility] CHEM PANEL Sodium Lvl 140 135 - 145 07/05/2018 [facility] CHEM PANEL Potassium Lvl 4.5 3.5 - 5.1 07/05/2018 [facility] CHEM PANEL Calcium Lvl 9.0 8.5 - 10.5 07/05/2018 [facility] CHEM PANEL B/C Ratio 24 6 - 25 07/05/2018 [facility] CHEM PANEL CO2 19 24 - 32 07/05/2018 [facility] CHEM PANEL Chloride Lvl 110 95 - 109 07/05/2018 [facility] CHEM PANEL AGAP 15.5 10.0 - 20.0 07/05/2018 [facility] CHEM PANEL Procalcitonin Lvl 0.16 0.00 - 0.10 07/05/2018 [facility] Platelet 348 133 - 450 07/05/2018 [facility] MPV 10.5 7.4 - 10.4 07/05/2018 [facility] Hct 29.4 42.0 - 54.0 07/05/2018 [facility] Hgb 9.1 14.0 - 18.0 07/05/2018 [facility] MCV 75.3 80.0 - 94.0 07/05/2018 [facility] MCH 23.3 27.0 - 31.0 07/05/2018 [facility] RBC 3.90 4.70 - 6.10 07/05/2018 [facility] WBC 12.6 3.7 - 10.4 07/05/2018 [facility] MCHC 30.9 32.0 - 36.0 07/05/2018 [facility] RDW 24.8 11.5 - 14.5 07/05/2018 [facility] Anisocyte 1+ *ABN* (07/05/18 6:01 AM) None Seen 07/05/2018 [facility] Microcyte 1+ *ABN* (07/05/18 6:01 AM) None Seen 07/05/2018 [facility] Neutrophils # 7.0 1.5 - 8.1 07/05/2018 [facility] Lymphocytes # 4.0 1.0 - 5.5 07/05/2018 [facility] Basophils 1.7 0.0 - 1.0 07/05/2018 [facility] Eosinophils # 0.5 0.0 - 0.5 07/05/2018 [facility] Basophils # 0.2 0.0 - 0.2 07/05/2018 [facility] HEMATOLOGY Plt Morph Leeann l (07/05/18 6:01 AM) 07/05/2018 [facility] HEMATOLOGY Segs 55.4 45.0 - 75.0 07/05/2018 [facility] HEMATOLOGY Lymphocytes 32.2 20.0 - 40.0 07/05/2018 [facility] HEMATOLOGY Eosinophils 4.1 0.0 - 4.0 07/05/2018 [facility] HEMATOLOGY Monocytes 6.6 2.0 - 12.0 07/05/2018 [facility] HEMATOLOGY Monocytes # 0.8 0.0 - 0.8 07/05/2018 [facility] BACTERIAL - SEROLOGY Strep pneumonia e Ag Negative (07/04/18 4:17 PM) Negative 07/04/2018 [facility] BACTERIAL - SEROLOGY Source Strep Urine *NA* (07/04/18 4:17 PM) 07/04/2018 [facility] CHEM PANEL Lactic Acid Lvl 2.4 0.5 - 2.2 07/04/2018 [facility] IMMUNOLOGY HIV Ag/Ab 4th Gen Negat pavel *NA* (07/04/18 3:21 PM) Negative 07/04/2018 [facility] VIRAL - SEROLOGY Influ A Negative (07/04/18 3:21 PM) Negative 07/04/2018 [facility] VIRAL - SEROLOGY Influ B Negative (07/04/18 3:21 PM) Negative 07/04/2018 [facility] DRUG SCREEN U Amph Scr Nega tive *NA* (07/04/18 12:41 PM) Negative 07/04/2018 [facility] DRUG SCREEN U Benzodiaz Scr Nega tive *NA* (07/04/18 12:41 PM) Negative 07/04/2018 [facility] DRUG SCREEN U Chelsie Scr Nega tive *NA* (07/04/18 12:41 PM) Negative 07/04/2018 [facility] DRUG SCREEN U Cannab Scr Posi tive *ABN* (07/04/18 12:41 PM) Negative 07/04/2018 [facility] DRUG SCREEN U Phencyclidine Scr Nega tive *NA* (07/04/18 12:41 PM) Negative 07/04/2018 [facility] DRUG SCREEN U Cocaine Scr Nega tive *NA* (07/04/18 12:41 PM) Negative 07/04/2018 [facility] DRUG SCREEN UDS Note See Note (07/04/18 12:41 PM) 07/04/2018 [facility] DRUG SCREEN U Opiate Scr Posi tive *ABN* (07/04/18 12:41 PM) Negative 07/04/2018 [facility] URINE AND STOOL UA Urobilinogen <=1.0 mg/dL 0.1 - 1.0 07/04/2018 [facility] URINE AND STOOL UA Mucus Few /LPF None Seen /LPF 07/04/2018 [facility] URINE AND STOOL UA Bacteria Occasional /HPF None Seen /HPF 07/04/2018 [facility] st URINE AND STOOL UA Leuk Est Small *ABN* (07/04/18 12:41 PM) Negative 07/04/2018 [facility] URINE AND STOOL UA Sq Epi Occasional /LPF Few /LPF 07/04/2018 [facility] URINE AND STOOL UA WBC 4 0 - 5 07/04/2018 [facility] URINE AND STOOL UA RBC 2 0 - 2 07/04/2018 [facility] URINE AND STOOL UA Blood Moderate *ABN* (07/04/18 12:41 PM) Negative 07/04/2018 [facility] URINE AND STOOL UA Nitrite Negative (07/04/18 12:41 PM) Negative 07/04/2018 [facility] URINE AND STOOL UA Glucose Negative mg/dL Negative mg/dL 07/04/2018 [facility] URINE AND STOOL UA Ketones Negative mg/dL Negative mg/dL 07/04/2018 [facility] URINE AND STOOL UA Bili Negative *NA* (07/04/18 12:41 PM) Negative 07/04/2018 [facility] URINE AND STOOL UA Turbidity Clear (07/04/18 12:41 PM) Clear 07/04/2018 [facility] URINE AND STOOL UA Spec Grav 1.009 <=1.030 07/04/2018 [facility] URINE AND STOOL UA pH 6.0 5.0 - 8.0 07/04/2018 [facility] URINE AND STOOL UA Protein 100 mg/dL Negative mg/dL 07/04/2018 [facility] URINE AND STOOL UA Color Light Yellow *NA* (07/04/18 12:41 PM) Yellow 07/04/2018 [facility] CHEM PANEL Procalcitonin Lvl 0.46 0.00 - 0.10 07/04/2018 [facility] CHEM PANEL Lactic Acid Lvl 1.3 0.5 - 2.2 07/04/2018 [facility] CARDIAC ENZYMES Troponin-I <0.02 0.00 - 0.40 07/04/2018 [facility] CARDIAC ENZYMES Total CK 269 12 - 191 07/04/2018 [facility] CHEM PANEL Lipase Lvl 61 73 - 393 07/04/2018 [facility] HEMATOLOGY Plt Morph See N ote 1 (07/04/18 10:23 AM) 07/04/2018 Result Comment: Due to occassional clumps, the actual count may be slightly higher. [facility] HEMATOLOGY RBC Morph Leeann l (07/04/18 10:23 AM) 07/04/2018 [facility] HEMATOLOGY Anisocyte 2+ *ABN* (07/04/18 10:23 AM) None Seen 07/04/2018 [facility] TOXICOLOGY Ethanol Lvl <3 07/04/2018 [facility] TOXICOLOGY Etoh (%) <0.003 07/04/2018 [facility] ELECTROLYTES AGAP 12.5 10.0 - 20.0 06/29/2018 [facility] ELECTROLYTES eGFR 112 06/29/2018 Result Comment: The [...] should be multiplied by the estimated BMI. [facility] ELECTROLYTES Creatinine Lvl 0.9 0 0.50 - 1.40 06/29/2018 [facility] ELECTROLYTES BUN 14 7 - 22 06/29/2018 [facility] ELECTROLYTES Chloride Lvl 107 95 - 109 06/29/2018 [facility] ELECTROLYTES Potassium Lvl 3.5 3.5 - 5.1 06/29/2018 [facility] ELECTROLYTES Sodium Lvl 141 135 - 145 06/29/2018 [facility] ELECTROLYTES Glucose Lvl 82 70 - 99 06/29/2018 [facility] ELECTROLYTES CO2 25 24 - 32 06/29/2018 [facility] ELECTROLYTES Calcium Lvl 8.9 8.5 - 10.5 06/29/2018 [facility] Lymphocytes # 1.6 1.0 - 5.5 06/29/2018 [facility] Neutrophils # 2.4 1.5 - 8.1 06/29/2018 [facility] Eosinophils # 0.3 0.0 - 0.5 06/29/2018 [facility] Monocytes # 0.4 0.0 - 0.8 06/29/2018 [facility] [place] Microcyte 1+ *ABN* (06/29/18 6:13 AM) None Seen 06/29/2018 [facility] Anisocyte 1+ *ABN* (06/29/18 6:13 AM) None Seen 06/29/2018 [facility] Basophils # 0.0 0.0 - 0.2 06/29/2018 [facility] Plt Morph Leeann l (06/29/18 6:13 AM) 06/29/2018 [facility] Monocytes 8.2 2.0 - 12.0 06/29/2018 [facility] Lymphocytes 34.4 20.0 - 40.0 06/29/2018 [facility] Segs 50.7 45.0 - 75.0 06/29/2018 [facility] Basophils 1.0 0.0 - 1.0 06/29/2018 [facility] Eosinophils 5.7 0.0 - 4.0 06/29/2018 [facility] MPV 8.4 7.4 - 10.4 06/29/2018 [facility] [place] Platelet 327 133 - 450 06/29/2018 [facility] MCH 23.8 27.0 - 31.0 06/29/2018 [facility] MCHC 32.7 32.0 - 36.0 06/29/2018 [facility] RDW 25.6 11.5 - 14.5 06/29/2018 [facility] MCV 72.6 80.0 - 94.0 06/29/2018 [facility] Hct 35.0 42.0 - 54.0 06/29/2018 [facility] WBC 5.3 3.7 - 10.4 06/29/2018 [facility] [place] RBC 4.82 4.70 - 6.10 06/29/2018 [facility] Hgb 11.4 14.0 - 18.0 06/29/2018 [facility] CHEM PANEL eGFR 98 06/28/2018 Result Comment: [...] should be multiplied by the estimated BMI. [facility] CHEM PANEL CO2 24 24 - 32 06/28/2018 [facility] CHEM PANEL AGAP 10.6 10.0 - 20.0 06/28/2018 [facility] CHEM PANEL Calcium Lvl 9.3 8.5 - 10.5 06/28/2018 [facility] CHEM PANEL BUN 19 7 - 22 06/28/2018 [facility] CHEM PANEL Glucose Lvl 80 70 - 99 06/28/2018 [facility] CHEM PANEL Creatinine Lvl 1.00 0.50 - 1.40 06/28/2018 [facility] CHEM PANEL Sodium Lvl 141 135 - 145 06/28/2018 [facility] CHEM PANEL Potassium Lvl 3.6 3.5 - 5.1 06/28/2018 [facility] CHEM PANEL Chloride Lvl 110 95 - 109 06/28/2018 [facility] [place] MPV 8.2 7.4 - 10.4 06/27/2018 [facility] [place] Hct 28.9 42.0 - 54.0 06/27/2018 [facility] [place] MCH 23.4 27.0 - 31.0 06/27/2018 [facility] HEMATOLOGY MCV 73.9 80.0 - 94.0 06/27/2018 [facility] [place] MCHC 31.6 32.0 - 36.0 06/27/2018 [facility] [place] RDW 26.5 11.5 - 14.5 06/27/2018 [facility] [place] Platelet 474 133 - 450 06/27/2018 [facility] WBC 6.8 3.7 - 10.4 06/27/2018 [facility] RBC 3.91 4.70 - 6.10 06/27/2018 [facility] [place] Hgb 9.1 14.0 - 18.0 06/27/2018 [facility] [facility] [place] Hypochrom 1+ (06/27/18 11:49 AM) None Seen 06/27/2018 [facility] [place] Basophils # 0.0 0.0 - 0.2 06/27/2018 [facility] [place] Anisocyte 1+ *ABN* (06/27/18 11:49 AM) None Seen 06/27/2018 [facility] [place] Microcyte 2+ *ABN* (06/27/18 11:49 AM) None Seen 06/27/2018 [facility] [place] Lymphocytes # 2.4 1.0 - 5.5 06/27/2018 [facility] [place] Monocytes # 0.4 0.0 - 0.8 06/27/2018 [facility] [place] Eosinophils # 0.3 0.0 - 0.5 06/27/2018 [facility] [place] Neutrophils # 3.7 1.5 - 8.1 06/27/2018 [facility] [place] Monocytes 5.4 2.0 - 12.0 06/27/2018 [facility] [place] Eosinophils 3.8 0.0 - 4.0 06/27/2018 [facility] [place] Basophils 0.7 0.0 - 1.0 06/27/2018 [facility] [place] Plt Morph Leeann l (06/27/18 11:49 AM) 06/27/2018 [facility] [place] Lymphocytes 35.6 20.0 - 40.0 06/27/2018 [facility] [place] Segs 54.5 45.0 - 75.0 06/27/2018 [facility] TOXICOLOGY Vanco Tr TND 2200 06/27/2018 [facility] TOXICOLOGY Vanco Tr 10.8 06/27/2018 [facility] IMMUNOLOGY Prealbumin 17.6 18.0 - 45.0 06/26/2018 [facility] TOXICOLOGY Vanco Tr TND 0600 06/25/2018 [facility] TOXICOLOGY Vanco Tr 4.3 06/25/2018 [facility] ELECTROLYTES AGAP 12.8 10.0 - 20.0 06/24/2018 [facility] ELECTROLYTES eGFR 72 06/24/2018 Result Comment: The [...] should be multiplied by the estimated BMI. [facility] ELECTROLYTES Chloride Lvl 110 95 - 109 06/24/2018 [facility] ELECTROLYTES CO2 24 24 - 32 06/24/2018 [facility] ELECTROLYTES Calcium Lvl 9.1 8.5 - 10.5 06/24/2018 [facility] ELECTROLYTES Glucose Lvl 125 70 - 99 06/24/2018 [facility] ELECTROLYTES Creatinine Lvl 1.3 0 0.50 - 1.40 06/24/2018 [facility] ELECTROLYTES BUN 13 7 - 22 06/24/2018 [facility] ELECTROLYTES Potassium Lvl 3.8 3.5 - 5.1 06/24/2018 [facility] ELECTROLYTES Sodium Lvl 143 135 - 145 06/24/2018 [facility] [place] Polychrom Moder ate *ABN* (06/24/18 11:11 AM) None Seen 06/24/2018 [facility] [place] Microcyte 2+ *ABN* (06/24/18 11:11 AM) None Seen 06/24/2018 [facility] [place] Anisocyte 1+ *ABN* (06/24/18 11:11 AM) None Seen 06/24/2018 [facility] [place] Eosinophils 1.9 0.0 - 4.0 06/24/2018 [facility] [place] Lymphocytes # 1.5 1.0 - 5.5 06/24/2018 [facility] [place] Basophils 0.1 0.0 - 1.0 06/24/2018 [facility] [place] Neutrophils # 5.3 1.5 - 8.1 06/24/2018 [facility] [place] Basophils # 0.0 0.0 - 0.2 06/24/2018 [facility] [place] Eosinophils # 0.1 0.0 - 0.5 06/24/2018 [facility] [place] Monocytes # 0.3 0.0 - 0.8 06/24/2018 [facility] [place] Segs 73.4 45.0 - 75.0 06/24/2018 [facility] HEMATOLOGY Plt Morph Leeann l (06/24/18 11:11 AM) 06/24/2018 [facility] HEMATOLOGY Lymphocytes 20.8 20.0 - 40.0 06/24/2018 [facility] HEMATOLOGY Monocytes 3.8 2.0 - 12.0 06/24/2018 [facility] [place] MCH 23.6 27.0 - 31.0 06/24/2018 [facility] HEMATOLOGY MCV 73.1 80.0 - 94.0 06/24/2018 [facility] HEMATOLOGY Hct 29.5 42.0 - 54.0 06/24/2018 [facility] HEMATOLOGY RDW 26.4 11.5 - 14.5 06/24/2018 [facility] HEMATOLOGY MPV 8.4 7.4 - 10.4 06/24/2018 [facility] [place] Platelet 374 133 - 450 06/24/2018 [facility] [place] MCHC 32.3 32.0 - 36.0 06/24/2018 [facility] [place] Hgb 9.5 14.0 - 18.0 06/24/2018 [facility] [place] RBC 4.04 4.70 - 6.10 06/24/2018 [facility] [place] WBC 7.2 3.7 - 10.4 06/24/2018 [facility] TOXICOLOGY Vanco Lvl 7.3 06/24/2018 [facility] TOXICOLOGY Vanco Lvl 19.3 06/23/2018 [facility] HEMATOLOGY Polychrom Moder ate *ABN* (06/22/18 4:33 AM) None Seen 06/22/2018 [facility] TOXICOLOGY Vanco Tr TND 07352 530 06/22/2018 [facility] TOXICOLOGY Vanco Tr 25.7 06/22/2018 [facility] CHEM PANEL AST 12 0 - 37 06/21/2018 [facility] CHEM PANEL Bili Direct <0.1 0.0 - 0.3 06/21/2018 [facility] CHEM PANEL Alk Phos 95 39 - 136 06/21/2018 [facility] CHEM PANEL ALT 14 0 - 65 06/21/2018 [facility] CHEM PANEL Bili Total 0.3 0.2 - 1.3 06/21/2018 [facility] CHEM PANEL Total Protein 7.8 6.4 - 8.4 06/21/2018 [facility] CHEM PANEL A/G Ratio 0.5 0.7 - 1.6 06/21/2018 [facility] CHEM PANEL Globulin 5.3 2.7 - 4.2 06/21/2018 [facility] CHEM PANEL Albumin Lvl 2.5 3.5 - 5.0 06/21/2018 [facility] CHEM PANEL Bili Indirect Unabl e to Calculate 0.0 - 1.0 06/21/2018 [facility] CHEM PANEL Lactic Acid Lvl 1.0 0.5 - 2.2 06/21/2018 [facility] MEROPENEM:SUSC:PT:ISOLATE:ORDQN:NHUNG Gram Stain Report Rare WBC's No Organisms Seen 06/21/2018 [facility] MEROPENEM:SUSC:PT:ISOLATE:ORDQN:NHUNG Culture: Wound/Abscess w/Gram Stain Few Pseudomonas [...] seen. Further culture results to follow. 06/21/2018 [facility] MEROPENEM:SUSC:PT:ISOLATE:ORDQN:[place]UN[place] Acinetobacter baumannii Acinetobacter baumannii 06/21/2018 [facility] MEROPENEM:SUSC:PT:ISOLATE:ORDQN:[place] Pseudomonas aeruginosa Pseudomonas aeruginosa 06/21/2018 [facility] URINE AND STOOL UA Sq Epi None Seen 06/20/2018 [facility] URINE AND STOOL UA Urobilinogen <=1.0 mg/dL 0.1 - 1.0 06/20/2018 [facility] URINE AND STOOL UA Color Yellow 06/20/2018 [facility] URINE AND STOOL UA RBC 2 0 - 2 06/20/2018 [facility] URINE AND STOOL UA WBC 12 0 - 5 06/20/2018 [facility] URINE AND STOOL UA Nitrite Negative (06/20/18 4:48 PM) Negative 06/20/2018 [facility] URINE AND STOOL UA Blood Negative (06/20/18 4:48 PM) Negative 06/20/2018 [facility] URINE AND STOOL UA Leuk Est Moderate *ABN* (06/20/18 4:48 PM) Negative 06/20/2018 [facility] URINE AND STOOL UA Mucus Few /LPF None Seen /LPF 06/20/2018 [facility] URINE AND STOOL UA Bacteria Many /HPF None Seen /HPF 06/20/2018 [facility] URINE AND STOOL UA Ketones Negative mg/dL Negative mg/dL 06/20/2018 [facility] URINE AND STOOL UA Glucose Negative mg/dL Negative mg/dL 06/20/2018 [facility] URINE AND STOOL UA Protein 100 mg/dL Negative mg/dL 06/20/2018 [facility] URINE AND STOOL UA pH 6.0 5.0 - 8.0 06/20/2018 [facility] URINE AND STOOL UA Spec Grav 1.013 <=1.030 06/20/2018 [facility] URINE AND STOOL UA Turbidity Clear (06/20/18 4:48 PM) Clear 06/20/2018 [facility] URINE AND STOOL UA Bili Negative *NA* (06/20/18 4:48 PM) Negative 06/20/2018 [facility] CARDIAC ENZYMES Total CK 70 12 - 191 06/20/2018 [facility] CARDIAC ENZYMES Troponin-I <0.02 0.00 - 0.40 06/20/2018 [facility] CHEM PANEL Bili Total 0.3 0.2 - 1.3 06/20/2018 [facility] CHEM PANEL AST 12 0 - 37 06/20/2018 [facility] CHEM PANEL Alk Phos 108 39 - 136 06/20/2018 [facility] CHEM PANEL Total Protein 8.5 6.4 - 8.4 06/20/2018 [facility] CHEM PANEL ALT 19 0 - 65 06/20/2018 [facility] CHEM PANEL Albumin Lvl 2.9 3.5 - 5.0 06/20/2018 [facility] CHEM PANEL A/G Ratio 0.5 0.7 - 1.6 06/20/2018 [facility] CHEM PANEL B/C Ratio 15 6 - 25 06/20/2018 [facility] CHEM PANEL Globulin 5.6 2.7 - 4.2 06/20/2018 [facility] CHEM PANEL Lactic Acid Lvl 1.0 0.5 - 2.2 06/20/2018 [facility] CHEM PANEL Procalcitonin Lvl 0.06 0.00 - 0.10 06/20/2018 [facility] HEMATOLOGY PT 14.6 12.0 - 14.7 06/20/2018 [facility] HEMATOLOGY INR 1.14 0.85 - 1.17 06/20/2018 [facility] HEMATOLOGY PTT 34.9 22.9 - 35.8 06/20/2018 [facility] HEMATOLOGY Hypochrom 1+ (06/20/18 4:30 PM) None Seen 06/20/2018 [facility] GENTAMICIN:SUSC:PT:ISOLATE:ORDQN:NHUNG Culture: Urine >100,000 CFU/mL Klebsiella pneumoniae ssp pneumoniae Multi-drug Resistant Organism 06/20/2018 [facility] GENTAMICIN:SUSC:PT:ISOLATE:ORDQN:NHUNG Klebsiella pneumoniae ssp pneumoniae Klebsiella pneumoniae ssp pneumoniae 06/20/2018 [facility] CHEM PANEL Phosphorus 4.6 2.5 - 4.5 06/01/2018 [facility] CHEM PANEL Magnesium Lvl 2.1 1.8 - 2.4 06/01/2018 [facility] CHEM PANEL Phosphorus 4.9 2.5 - 4.5 06/01/2018 [facility] CHEM PANEL Magnesium Lvl 2.1 1.8 - 2.4 06/01/2018 [facility] CHEM PANEL eGFR 58 06/01/2018 Result Comment: [...] should be multiplied by the estimated BMI. [facility] CHEM PANEL Sodium Lvl 139 135 - 145 06/01/2018 [facility] CHEM PANEL Potassium Lvl 4.3 3.5 - 5.1 06/01/2018 [facility] CHEM PANEL Creatinine Lvl 1.54 0.50 - 1.40 06/01/2018 [facility] CHEM PANEL BUN 36 7 - 22 06/01/2018 [facility] CHEM PANEL Chloride Lvl 104 95 - 109 06/01/2018 [facility] CHEM PANEL CO2 19 24 - 32 06/01/2018 [facility] CHEM PANEL AGAP 20.3 10.0 - 20.0 06/01/2018 [facility] CHEM PANEL Calcium Lvl 9.1 8.5 - 10.5 06/01/2018 [facility] CHEM PANEL Glucose Lvl 73 70 - 99 06/01/2018 [facility] DRUG SCREEN U Propoxyph Scr Nega tive *NA* (06/01/18 12:13 AM) Negative 06/01/2018 [facility] DRUG SCREEN U Chelsie Scr Nega tive *NA* (06/01/18 12:13 AM) Negative 06/01/2018 [facility] DRUG SCREEN U Benzodiaz Scr Posi tive *ABN* (06/01/18 12:13 AM) Negative 06/01/2018 [facility] DRUG SCREEN U Cannab Scr Posi tive *ABN* (06/01/18 12:13 AM) Negative 06/01/2018 [facility] DRUG SCREEN U Opiate Scr Posi tive *ABN* (06/01/18 12:13 AM) Negative 06/01/2018 [facility] DRUG SCREEN U Cocaine Scr Nega tive *NA* (06/01/18 12:13 AM) Negative 06/01/2018 [facility] DRUG SCREEN U Amph Scr Nega tive *NA* (06/01/18 12:13 AM) Negative 06/01/2018 [facility] DRUG SCREEN U Phencyclidine Scr Nega tive *NA* (06/01/18 12:13 AM) Negative 06/01/2018 [facility] DRUG SCREEN U Methadone Scr Nega tive *NA* (06/01/18 12:13 AM) Negative 06/01/2018 [facility] DRUG SCREEN UDS Note See Note (06/01/18 12:13 AM) 06/01/2018 [facility] ELECTROLYTES AGAP 14.1 10.0 - 20.0 06/01/2018 [facility] ELECTROLYTES eGFR 56 06/01/2018 Result Comment: The [...] should be multiplied by the estimated BMI. [facility] ELECTROLYTES BUN 35 7 - 22 06/01/2018 [facility] ELECTROLYTES Creatinine Lvl 1.6 0 0.50 - 1.40 06/01/2018 [facility] ELECTROLYTES Glucose Lvl 76 70 - 99 06/01/2018 [facility] ELECTROLYTES Sodium Lvl 136 135 - 145 06/01/2018 [facility] ELECTROLYTES Chloride Lvl 104 95 - 109 06/01/2018 [facility] ELECTROLYTES Potassium Lvl 4.1 3.5 - 5.1 06/01/2018 [facility] ELECTROLYTES CO2 22 24 - 32 06/01/2018 [facility] ELECTROLYTES Calcium Lvl 9.4 8.5 - 10.5 06/01/2018 [facility] HEMATOLOGY Platelet 389 133 - 450 06/01/2018 [facility] HEMATOLOGY MPV 8.1 7.4 - 10.4 06/01/2018 [facility] HEMATOLOGY WBC 10.1 3.7 - 10.4 06/01/2018 [facility] HEMATOLOGY RBC 4.35 4.70 - 6.10 06/01/2018 [facility] HEMATOLOGY Hgb 9.8 14.0 - 18.0 06/01/2018 [facility] HEMATOLOGY Hct 32.3 42.0 - 54.0 06/01/2018 [facility] HEMATOLOGY MCV 74.3 80.0 - 94.0 06/01/2018 [facility] HEMATOLOGY MCH 22.5 27.0 - 31.0 06/01/2018 [facility] HEMATOLOGY MCHC 30.2 32.0 - 36.0 06/01/2018 [facility] HEMATOLOGY RDW 21.8 11.5 - 14.5 06/01/2018 [facility] HEMATOLOGY Eosinophils # 0.3 0.0 - 0.5 06/01/2018 [facility] HEMATOLOGY Lymphocytes # 3.2 1.0 - 5.5 06/01/2018 [facility] HEMATOLOGY Monocytes # 1.3 0.0 - 0.8 06/01/2018 [facility] HEMATOLOGY Microcyte 1+ *ABN* (06/01/18 12:13 AM) None Seen 06/01/2018 [facility] HEMATOLOGY Anisocyte 1+ *ABN* (06/01/18 12:13 AM) None Seen 06/01/2018 [facility] HEMATOLOGY Basophils # 0.1 0.0 - 0.2 06/01/2018 [facility] HEMATOLOGY Neutrophils # 5.2 1.5 - 8.1 06/01/2018 [facility] HEMATOLOGY Basophils 1.0 0.0 - 1.0 06/01/2018 [facility] HEMATOLOGY Eosinophils 3.3 0.0 - 4.0 06/01/2018 [facility] HEMATOLOGY Lymphocytes 31.4 20.0 - 40.0 06/01/2018 [facility] HEMATOLOGY Segs 51.4 45.0 - 75.0 06/01/2018 [facility] HEMATOLOGY Monocytes 12.9 2.0 - 12.0 06/01/2018 [facility] PARATHYROID PROFILE Ca Norm WB 1.12 1.05 - 1.25 06/01/2018 [facility] PARATHYROID PROFILE Ca Ion WB 1.20 1.05 - 1.25 06/01/2018 [facility] TOXICOLOGY Salicylate Lvl 1.7 0.0 - 30.0 06/01/2018 [facility] TOXICOLOGY Acetaminoph Lvl <2 (06/01/18 12:13 AM) 10 - 06/01/2018 [facility] DRUG SCREEN U Phencyclidine Scr Nega tive *NA* (05/30/18 7:12 PM) Negative 05/31/2018 [facility] DRUG SCREEN U Chelsie Scr Nega tive *NA* (05/30/18 7:12 PM) Negative 05/31/2018 [facility] DRUG SCREEN UDS Note See Note (05/30/18 7:12 PM) 05/31/2018 [facility] DRUG SCREEN U Cocaine Scr Nega tive *NA* (05/30/18 7:12 PM) Negative 05/31/2018 [facility] DRUG SCREEN U Benzodiaz Scr Posi tive *ABN* (05/30/18 7:12 PM) Negative 05/31/2018 [facility] DRUG SCREEN U Amph Scr Nega tive *NA* (05/30/18 7:12 PM) Negative 05/31/2018 [facility] DRUG SCREEN U Opiate Scr Posi tive *ABN* (05/30/18 7:12 PM) Negative 05/31/2018 [facility] DRUG SCREEN U Cannab Scr Posi tive *ABN* (05/30/18 7:12 PM) Negative 05/31/2018 [facility] CARDIAC ENZYMES Troponin-I <0.02 0.00 - 0.40 05/30/2018 [facility] CHEM PANEL Phosphorus 4.2 2.5 - 4.5 05/30/2018 [facility] CHEM PANEL Magnesium Lvl 1.9 1.8 - 2.4 05/30/2018 [facility] ELECTROLYTES Sodium Lvl 137 135 - 145 05/30/2018 [facility] ELECTROLYTES BUN 40 7 - 22 05/30/2018 [facility] ELECTROLYTES Glucose Lvl 82 70 - 99 05/30/2018 [facility] ELECTROLYTES eGFR 64 05/30/2018 Result Comment: The [...] should be multiplied by the estimated BMI. [facility] ELECTROLYTES AGAP 16.3 10.0 - 20.0 05/30/2018 [facility] ELECTROLYTES Calcium Lvl 9.2 8.5 - 10.5 05/30/2018 [facility] ELECTROLYTES CO2 20 24 - 32 05/30/2018 [facility] ELECTROLYTES Potassium Lvl 4.3 3.5 - 5.1 05/30/2018 [facility] ELECTROLYTES Creatinine Lvl 1.4 3 0.50 - 1.40 05/30/2018 [facility] ELECTROLYTES Chloride Lvl 105 95 - 109 05/30/2018 [facility] HEMATOLOGY Anisocyte 1+ *ABN* (05/30/18 6:08 PM) None Seen 05/30/2018 [facility] HEMATOLOGY Basophils # 0.2 0.0 - 0.2 05/30/2018 [facility] HEMATOLOGY Eosinophils # 0.3 0.0 - 0.5 05/30/2018 [facility] HEMATOLOGY Microcyte 2+ *ABN* (05/30/18 6:08 PM) None Seen 05/30/2018 [facility] HEMATOLOGY Monocytes # 0.9 0.0 - 0.8 05/30/2018 [facility] HEMATOLOGY Lymphocytes 23.1 20.0 - 40.0 05/30/2018 [facility] HEMATOLOGY Segs 65.4 45.0 - 75.0 05/30/2018 [facility] HEMATOLOGY Neutrophils # 7.9 1.5 - 8.1 05/30/2018 [facility] HEMATOLOGY Lymphocytes # 2.8 1.0 - 5.5 05/30/2018 [facility] HEMATOLOGY Basophils 1.3 0.0 - 1.0 05/30/2018 [facility] HEMATOLOGY Eosinophils 2.6 0.0 - 4.0 05/30/2018 [facility] HEMATOLOGY Monocytes 7.6 2.0 - 12.0 05/30/2018 [facility] HEMATOLOGY MPV 8.0 7.4 - 10.4 05/30/2018 [facility] HEMATOLOGY Platelet 466 133 - 450 05/30/2018 [facility] HEMATOLOGY MCHC 31.1 32.0 - 36.0 05/30/2018 [facility] HEMATOLOGY MCH 22.2 27.0 - 31.0 05/30/2018 [facility] HEMATOLOGY RDW 22.1 11.5 - 14.5 05/30/2018 [facility] HEMATOLOGY MCV 71.2 80.0 - 94.0 05/30/2018 [facility] HEMATOLOGY Hct 30.9 42.0 - 54.0 05/30/2018 [facility] HEMATOLOGY RBC 4.34 4.70 - 6.10 05/30/2018 [facility] HEMATOLOGY Hgb 9.6 14.0 - 18.0 05/30/2018 [facility] HEMATOLOGY WBC 12.1 3.7 - 10.4 05/30/2018 [facility] HEMATOLOGY WBC 7.4 3.7 - 10.4 05/29/2018 [facility] HEMATOLOGY MCV 74.3 80.0 - 94.0 05/29/2018 [facility] HEMATOLOGY Hct 29.5 42.0 - 54.0 05/29/2018 [facility] HEMATOLOGY Hgb 9.3 14.0 - 18.0 05/29/2018 [facility] HEMATOLOGY RBC 3.97 4.70 - 6.10 05/29/2018 [facility] HEMATOLOGY MCH 23.5 27.0 - 31.0 05/29/2018 [facility] HEMATOLOGY MPV 8.1 7.4 - 10.4 05/29/2018 [facility] HEMATOLOGY Platelet 488 133 - 450 05/29/2018 [facility] HEMATOLOGY RDW 22.0 11.5 - 14.5 05/29/2018 [facility] HEMATOLOGY MCHC 31.6 32.0 - 36.0 05/29/2018 [facility] HEMATOLOGY Segs 51.3 45.0 - 75.0 05/29/2018 [facility] HEMATOLOGY Monocytes 6.5 2.0 - 12.0 05/29/2018 [facility] HEMATOLOGY Lymphocytes 37.5 20.0 - 40.0 05/29/2018 [facility] HEMATOLOGY Eosinophils 4.5 0.0 - 4.0 05/29/2018 [facility] HEMATOLOGY Microcyte 1+ *ABN* (05/29/18 1:42 AM) None Seen 05/29/2018 [facility] HEMATOLOGY Anisocyte 1+ *ABN* (05/29/18 1:42 AM) None Seen 05/29/2018 [facility] HEMATOLOGY Neutrophils # 3.8 1.5 - 8.1 05/29/2018 [facility] HEMATOLOGY Basophils 0.2 0.0 - 1.0 05/29/2018 [facility] HEMATOLOGY Lymphocytes # 2.8 1.0 - 5.5 05/29/2018 [facility] HEMATOLOGY Eosinophils # 0.3 0.0 - 0.5 05/29/2018 [facility] HEMATOLOGY Monocytes # 0.5 0.0 - 0.8 05/29/2018 [facility] HEMATOLOGY Basophils # 0.1 0.0 - 0.2 05/27/2018 [facility] IMMUNOLOGY HCV Genotype Comment Comm ent 05/27/2018 [...] as investigational or for research.
Performed At: [facility]
[id number], [place] [id number]
Patricia Condon MD Ph:[phone] [facility] IMMUNOLOGY HCV Genotype 2b 05/27/2018 [facility] MOLECULAR DIAGNOSTIC HCV RNA Log10 5.2 05/27/2018 [facility] MOLECULAR DIAGNOSTIC HCV RNA VirLoad [id number] 05/27/2018 [facility] TOXICOLOGY Tobra Tr TND 2330 05/27/2018 [facility] TOXICOLOGY Tobra Tr 1.9 05/27/2018 [facility] TOXICOLOGY Tobra Lvl 11.4 05/26/2018 [facility] PARATHYROID PROFILE Ca Norm WB 1.11 1.05 - 1.25 05/26/2018 [facility] PARATHYROID PROFILE Ca Ion WB 1.11 1.05 - 1.25 05/26/2018 [facility] Culture: Urine No Growth 05/25/2018 [facility] CHEM PANEL Lactic Acid Lvl 1.2 0.5 - 2.2 05/25/2018 [facility] HEMATOLOGY INR 1.11 0.85 - 1.17 05/25/2018 [facility] HEMATOLOGY PTT 34.8 22.9 - 35.8 05/25/2018 [facility] HEMATOLOGY PT 14.3 12.0 - 14.7 05/25/2018 [facility] URINE AND STOOL UA Protein 50 mg/dL Negative mg/dL 05/25/2018 [facility] URINE AND STOOL UA Glucose Negative mg/dL Negative mg/dL 05/25/2018 [facility] URINE AND STOOL UA pH 7.5 5.0 - 8.0 05/25/2018 [facility] URINE AND STOOL UA Ketones Trace mg/dL Negative mg/dL 05/25/2018 [facility] URINE AND STOOL UA Bili Negative *NA* (05/25/18 1:26 AM) Negative 05/25/2018 [facility] URINE AND STOOL UA Color Light Yellow *NA* (05/25/18 1:26 AM) Yellow 05/25/2018 [facility] URINE AND STOOL UA Turbidity Clear (05/25/18 1:26 AM) Clear 05/25/2018 [facility] URINE AND STOOL UA Spec Grav 1.009 <=1.030 05/25/2018 [facility] URINE AND STOOL UA Urobilinogen <=1.0 mg/dL 0.1 - 1.0 05/25/2018 [facility] URINE AND STOOL UA WBC 16 0 - 5 05/25/2018 [facility] URINE AND STOOL UA Bacteria Occasional /HPF None Seen /HPF 05/25/2018 [facility] URINE AND STOOL UA RBC 1 0 - 2 05/25/2018 [facility] URINE AND STOOL UA Nitrite Negative (05/25/18 1:26 AM) Negative 05/25/2018 [facility] URINE AND STOOL UA Leuk Est Small *ABN* (05/25/18 1:26 AM) Negative 05/25/2018 [facility] URINE AND STOOL UA Blood Negative (05/25/18 1:26 AM) Negative 05/25/2018 [facility] URINE AND STOOL UA Sq Epi None Seen 05/25/2018 [facility] URINE AND STOOL UA [place] Yeast Occasional /HPF None Seen /HPF 05/25/2018 [facility] DRUG SCREEN UDS Note See Note (05/24/18 8:37 PM) 05/25/2018 [facility] DRUG SCREEN U Benzodiaz Scr Nega tive *NA* (05/24/18 8:37 PM) Negative 05/25/2018 [facility] DRUG SCREEN U Phencyclidine Scr Nega tive *NA* (05/24/18 8:37 PM) Negative 05/25/2018 [facility] DRUG SCREEN U Cannab Scr Posi tive *ABN* (05/24/18 8:37 PM) Negative 05/25/2018 [facility] DRUG SCREEN U Cocaine Scr Nega tive *NA* (05/24/18 8:37 PM) Negative 05/25/2018 [facility] DRUG SCREEN U Opiate Scr Posi tive *ABN* (05/24/18 8:37 PM) Negative 05/25/2018 [facility] DRUG SCREEN U Chelsie Scr Nega tive *NA* (05/24/18 8:37 PM) Negative 05/25/2018 [facility] DRUG SCREEN U Amph Scr Nega tive *NA* (05/24/18 8:37 PM) Negative 05/25/2018 [facility] AMINO ACID MMA Qnt 312 0 - 378 05/23/2018 [facility] AMINO ACID Disclaimer (Org Acid) Com ment 05/23/2018 Result Comment:
This test was aliciacase singer and its performance characteristics
determined by [facility]. It has not been cleared or
approved by the Food and Drug Administration.
Performed At: [facility]
[address] [place] [id number]
Patricia Condon MD Ph:[phone] [facility] ANEMIA STUDY UIBC 175 110 - 370 05/23/2018 [facility] ANEMIA STUDY % Satur Fe 12 12 - 57 05/23/2018 [facility] ANEMIA STUDY Iron 25 45 - 160 05/23/2018 [facility] ANEMIA STUDY TIBC 200 228 - 428 05/23/2018 [facility] ANEMIA STUDY Ferritin Lvl 90 22 - 275 05/23/2018 [facility] ANEMIA STUDY Folate Lvl 20.1 >=3.0 ng/mL 05/23/2018 [facility] ANEMIA STUDY Vitamin B12 Lvl 704 254 - 1320 05/23/2018 [facility] BLOOD BANK RESULTS ABO/Rh A POS 05/23/2018 [facility] BLOOD BANK RESULTS Antibody Scrn Negative (05/23/18 9:50 AM) 05/23/2018 [facility] CHEM PANEL LDH 137 98 - 192 05/23/2018 [facility] CHEM PANEL Bili Direct <0.1 0.0 - 0.3 05/23/2018 [facility] CHEM PANEL Bili Total 0.2 0.2 - 1.3 05/23/2018 [facility] CHEM PANEL Bili Indirect Unabl e to Calculate 0.0 - 1.0 05/23/2018 [facility] HEMATOLOGY Retic Auto 2.2 0.5 - 1.5 05/23/2018 [facility] IMMUNOLOGY Homocyst Tot 11.0 3.7 - 13.9 05/23/2018 [facility] BLOOD BANK RESULTS RBC product Product available (05/23/18 9:19 AM) 05/23/2018 [facility] SPECIAL CHEMISTRY Hgb A1C 5.6 <=5.6 % 05/22/2018 [facility] URINE AND STOOL UA Protein 30 mg/dL Negative mg/dL 05/21/2018 [facility] URINE AND STOOL UA pH 6.5 5.0 - 8.0 05/21/2018 [facility] URINE AND STOOL UA Spec Grav <=1.005 (05/21/18 12:59 PM) <=1.030 05/21/2018 [facility] URINE AND STOOL UA Bili Negative (05/21/18 12:59 PM) Negative 05/21/2018 [facility] URINE AND STOOL UA Ketones Trace *ABN* (05/21/18 12:59 PM) Negative 05/21/2018 [facility] URINE AND STOOL UA Glucose Negative (05/21/18 12:59 PM) Negative 05/21/2018 [facility] URINE AND STOOL UA Nitrite Negative (05/21/18 12:59 PM) Negative 05/21/2018 [facility] URINE AND STOOL UA Blood Small *ABN* (05/21/18 12:59 PM) Negative 05/21/2018 [facility] URINE AND STOOL UA Urobilinogen 0.2 0.1 - 1.0 05/21/2018 [facility] URINE AND STOOL UA Leuk Est Negative (05/21/18 12:59 PM) Negative 05/21/2018 [facility] URINE AND STOOL UA Color Yellow (05/21/18 12:59 PM) Yellow 05/21/2018 [facility] URINE AND STOOL UA Turbidity Clear (05/21/18 12:59 PM) Clear 05/21/2018 [facility] URINE AND STOOL UA Bacteria None Seen (05/21/18 12:59 PM) None Seen 05/21/2018 [facility] URINE AND STOOL UA RBC 0-2 /HPF 0 - 2 05/21/2018 [facility] URINE AND STOOL UA WBC 0-2 /HPF None Seen /HPF 05/21/2018 [facility] URINE AND STOOL UA Sq Epi None Seen (05/21/18 12:59 PM) Few 05/21/2018 [facility] CARDIAC ENZYMES Total CK 54 12 - 191 05/21/2018 [facility] CHEM PANEL Lactic Acid Lvl 0.7 0.5 - 2.2 05/21/2018 [facility] CHEM PANEL Procalcitonin Lvl 0.30 0.00 - 0.10 05/21/2018 [facility] CHEM PANEL ALT 26 0 - 65 05/21/2018 [facility] CHEM PANEL AST 19 0 - 37 05/21/2018 [facility] CHEM PANEL Albumin Lvl 2.4 3.5 - 5.0 05/21/2018 [facility] CHEM PANEL Alk Phos 109 39 - 136 05/21/2018 [facility] CHEM PANEL Bili Total 0.3 0.2 - 1.3 05/21/2018 [facility] CHEM PANEL Total Protein 8.6 6.4 - 8.4 05/21/2018 [facility] CHEM PANEL B/C Ratio 14 6 - 25 05/21/2018 [facility] CHEM PANEL Globulin 6.2 2.7 - 4.2 05/21/2018 [facility] CHEM PANEL A/G Ratio 0.4 0.7 - 1.6 05/21/2018 [facility] CHEM PANEL Lipase Lvl 45 73 - 393 05/21/2018 [facility] HEMATOLOGY Sed Rate >100 mm/hr 0 - 15 05/21/2018 [facility] HEMATOLOGY INR 1.17 0.85 - 1.17 05/21/2018 [facility] HEMATOLOGY PT 15.0 12.0 - 14.7 05/21/2018 [facility] HEMATOLOGY PTT 38.8 22.9 - 35.8 05/21/2018 [facility] IMMUNOLOGY C-REACTIVE PROTEIN 158.0 <=2.9 mg/L 05/21/2018 [facility] CARDIAC ENZYMES Troponin-I <0.02 ng/mL 0.00 - 0.40 05/21/2018 [facility] IMMUNOLOGY CDC HIV 4th GEN Negat pavel *NA* (05/21/18 10:29 AM) Negative 05/21/2018 [facility] MOLECULAR DIAGNOSTIC vanB Vancomycin Resistance Not Detected (05/21/18 10:29 AM) Not Detect ed 05/21/2018 [facility] MOLECULAR DIAGNOSTIC Listeria spp. Not Detected (05/21/18 10:29 AM) Not Detect ed 05/21/2018 [facility] MOLECULAR DIAGNOSTIC Staphylococcus spp. Not Detected (05/21/18 10:29 AM) Not Detect ed 05/21/2018 [facility] MOLECULAR DIAGNOSTIC E. faecalis Detected *ABN* (05/21/18 10:29 AM) Not Detect ed 05/21/2018 [facility] MOLECULAR DIAGNOSTIC E. faecium Detected *ABN* (05/21/18 10:29 AM) Not Detect ed 05/21/2018 [facility] MOLECULAR DIAGNOSTIC Casi Vancomycin Resistance Detected *ABN* (05/21/18 10:29 AM) Not Detect ed 05/21/2018 [facility] MOLECULAR DIAGNOSTIC mecA Methicilli n Resistance Not Detected (05/21/18 10:29 AM) Not Detect ed 05/21/2018 [facility] MOLECULAR DIAGNOSTIC Streptococcus s pp. Not Detected (05/21/18 10:29 AM) Not Detect ed 05/21/2018 [facility] MOLECULAR DIAGNOSTIC S. pyogenes Not Detected (05/21/18 10:29 AM) Not Detect ed 05/21/2018 [facility] MOLECULAR DIAGNOSTIC S. epidermidis Not Detected (05/21/18 10:29 AM) Not Detect ed 05/21/2018 [facility] MOLECULAR DIAGNOSTIC S. agalactiae Not Detected (05/21/18 10:29 AM) Not Detect ed 05/21/2018 [facility] MOLECULAR DIAGNOSTIC S. pneumoniae Not Detected (05/21/18 10:29 AM) Not Detect ed 05/21/2018 [facility] MOLECULAR DIAGNOSTIC S. anginosus gr p Not Detected (05/21/18 10:29 AM) Not Detect ed 05/21/2018 [facility] MOLECULAR DIAGNOSTIC S. lugdunensis Not Detected (05/21/18 10:29 AM) Not Detect ed 05/21/2018 [facility] MOLECULAR DIAGNOSTIC S. aureus Not Detected (05/21/18 10:29 AM) Not Detect ed 05/21/2018 [facility] CHEM PANEL eGFR 103 03/19/2018 Result Comment: [...] should be multiplied by the estimated BMI. [facility] CHEM PANEL Chloride Lvl 108 95 - 109 03/19/2018 [facility] CHEM PANEL Calcium Lvl 8.6 8.5 - 10.5 03/19/2018 [facility] CHEM PANEL CO2 25 24 - 32 03/19/2018 [facility] CHEM PANEL Creatinine Lvl 0.96 0.50 - 1.40 03/19/2018 [facility] CHEM PANEL Glucose Lvl 85 70 - 99 03/19/2018 [facility] CHEM PANEL BUN 15 7 - 22 03/19/2018 [facility] CHEM PANEL Sodium Lvl 142 135 - 145 03/19/2018 [facility] CHEM PANEL Potassium Lvl 4.0 3.5 - 5.1 03/19/2018 [facility] CHEM PANEL AGAP 13.0 10.0 - 20.0 03/19/2018 [facility] HEMATOLOGY WBC 8.8 3.7 - 10.4 03/19/2018 [facility] HEMATOLOGY Hct 27.3 42.0 - 54.0 03/19/2018 [facility] HEMATOLOGY RBC 3.69 4.70 - 6.10 03/19/2018 [facility] HEMATOLOGY MCV 74.1 80.0 - 94.0 03/19/2018 [facility] HEMATOLOGY Hgb 8.8 14.0 - 18.0 03/19/2018 [facility] HEMATOLOGY MCH 23.8 27.0 - 31.0 03/19/2018 [facility] HEMATOLOGY MCHC 32.2 32.0 - 36.0 03/19/2018 [facility] HEMATOLOGY MPV 7.9 7.4 - 10.4 03/19/2018 [facility] HEMATOLOGY Platelet 433 133 - 450 03/19/2018 [facility] HEMATOLOGY RDW 19.2 11.5 - 14.5 03/19/2018 [facility] HEMATOLOGY Monocytes 6.9 2.0 - 12.0 03/19/2018 [facility] HEMATOLOGY Lymphocytes # 2.8 1.0 - 5.5 03/19/2018 [facility] HEMATOLOGY Neutrophils # 5.2 1.5 - 8.1 03/19/2018 [facility] HEMATOLOGY Basophils 0.5 0.0 - 1.0 03/19/2018 [facility] HEMATOLOGY Eosinophils 1.0 0.0 - 4.0 03/19/2018 [facility] HEMATOLOGY Segs 59.2 45.0 - 75.0 03/19/2018 [facility] HEMATOLOGY Lymphocytes 32.4 20.0 - 40.0 03/19/2018 [facility] HEMATOLOGY Microcyte 1+ *ABN* (03/19/18 4:11 AM) None Seen 03/19/2018 [facility] HEMATOLOGY Eosinophils # 0.1 0.0 - 0.5 03/19/2018 [facility] HEMATOLOGY Monocytes # 0.6 0.0 - 0.8 03/19/2018 [facility] CHEM PANEL eGFR 100 03/18/2018 Result [...] should be multiplied by the estimated BMI. [facility] CHEM PANEL Bili Total 0.4 0.2 - 1.3 03/18/2018 [facility] CHEM PANEL Chloride Lvl 109 95 - 109 03/18/2018 [facility] CHEM PANEL CO2 25 24 - 32 03/18/2018 [facility] CHEM PANEL Calcium Lvl 8.6 8.5 - 10.5 03/18/2018 [facility] CHEM PANEL AST 19 0 - 37 03/18/2018 [facility] CHEM PANEL Alk Phos 132 39 - 136 03/18/2018 [facility] CHEM PANEL Total Protein 7.5 6.4 - 8.4 03/18/2018 [facility] CHEM PANEL Albumin Lvl 2.5 3.5 - 5.0 03/18/2018 [facility] CHEM PANEL ALT 36 0 - 65 03/18/2018 [facility] CHEM PANEL Creatinine Lvl 0.98 0.50 - 1.40 03/18/2018 [facility] CHEM PANEL Sodium Lvl 141 135 - 145 03/18/2018 [facility] CHEM PANEL Potassium Lvl 5.0 3.5 - 5.1 03/18/2018 [facility] CHEM PANEL Glucose Lvl 170 70 - 99 03/18/2018 [facility] CHEM PANEL BUN 15 7 - 22 03/18/2018 [facility] CHEM PANEL AGAP 12.0 10.0 - 20.0 03/18/2018 [facility] CHEM PANEL B/C Ratio 15 6 - 25 03/18/2018 [facility] CHEM PANEL Globulin 5.0 2.7 - 4.2 03/18/2018 [facility] CHEM PANEL A/G Ratio 0.5 0.7 - 1.6 03/18/2018 [facility] HEMATOLOGY Monocytes # 0.2 0.0 - 0.8 03/18/2018 [facility] HEMATOLOGY Microcyte 1+ *ABN* (03/18/18 3:13 AM) None Seen 03/18/2018 [facility] HEMATOLOGY Lymphocytes # 0.8 1.0 - 5.5 03/18/2018 [facility] HEMATOLOGY Neutrophils # 6.1 1.5 - 8.1 03/18/2018 [facility] HEMATOLOGY Monocytes 2.3 2.0 - 12.0 03/18/2018 [facility] HEMATOLOGY Lymphocytes 10.7 20.0 - 40.0 03/18/2018 [facility] HEMATOLOGY Basophils 0.1 0.0 - 1.0 03/18/2018 [facility] HEMATOLOGY Segs 86.9 45.0 - 75.0 03/18/2018 [facility] HEMATOLOGY Platelet 450 133 - 450 03/18/2018 [facility] HEMATOLOGY RDW 18.8 11.5 - 14.5 03/18/2018 [facility] HEMATOLOGY MCV 73.0 80.0 - 94.0 03/18/2018 [facility] HEMATOLOGY MPV 7.6 7.4 - 10.4 03/18/2018 [facility] HEMATOLOGY RBC 3.79 4.70 - 6.10 03/18/2018 [facility] HEMATOLOGY WBC 7.0 3.7 - 10.4 03/18/2018 [facility] HEMATOLOGY MCHC 31.9 32.0 - 36.0 03/18/2018 [facility] HEMATOLOGY MCH 23.3 27.0 - 31.0 03/18/2018 [facility] HEMATOLOGY Hct 27.7 42.0 - 54.0 03/18/2018 [facility] HEMATOLOGY Hgb 8.8 14.0 - 18.0 03/18/2018 [facility] TOXICOLOGY Vanco Tr TND 2300 03/18/2018 [facility] TOXICOLOGY Vanco Tr 31.3 03/18/2018 [facility] TOXICOLOGY Vanco Tr 55.5 03/17/2018 [facility] TOXICOLOGY Vanco Tr TND 1100 03/17/2018 [facility] CEFTAZIDIME:SUSC:PT:ISOLATE:ORDQN:NHUNG Gram Stain Report Moderate WBC's No Squamous Epithelial Cells; No Organisms Seen 03/16/2018 [facility] CEFTAZIDIME:SUSC:PT:ISOLATE:ORDQN:NHUNG Culture: Wound/Abscess w/Gram Stain Many Acinetobacter baumannii , Multi-arden g Resistant Organism Rare Alpha Streptococcus, Not Enterococcus 03/16/2018 [facility] CEFTAZIDIME:SUSC:PT:ISOLATE:ORDQN:NHUNG Acinetobacter baumannii Acinetobacter baumannii 03/16/2018 [facility] CHEM PANEL B/C Ratio 12 6 - 25 03/16/2018 [facility] CHEM PANEL Globulin 5.0 2.7 - 4.2 03/16/2018 [facility] CHEM PANEL A/G Ratio 0.5 0.7 - 1.6 03/16/2018 [facility] CHEM PANEL AGAP 11.0 10.0 - 20.0 03/16/2018 [facility] CHEM PANEL eGFR 77 03/16/2018 Result [...] should be multiplied by the estimated BMI. [facility] CHEM PANEL Total Protein 7.5 6.4 - 8.4 03/16/2018 [facility] CHEM PANEL Calcium Lvl 8.6 8.5 - 10.5 03/16/2018 [facility] CHEM PANEL CO2 25 24 - 32 03/16/2018 [facility] CHEM PANEL Albumin Lvl 2.5 3.5 - 5.0 03/16/2018 [facility] CHEM PANEL ALT 31 0 - 65 03/16/2018 [facility] CHEM PANEL Bili Total 0.3 0.2 - 1.3 03/16/2018 [facility] CHEM PANEL Alk Phos 129 39 - 136 03/16/2018 [facility] CHEM PANEL Chloride Lvl 106 95 - 109 03/16/2018 [facility] CHEM PANEL Potassium Lvl 4.0 3.5 - 5.1 03/16/2018 [facility] CHEM PANEL Creatinine Lvl 1.23 0.50 - 1.40 03/16/2018 [facility] CHEM PANEL BUN 15 7 - 22 03/16/2018 [facility] CHEM PANEL AST 23 0 - 37 03/16/2018 [facility] CHEM PANEL Glucose Lvl 80 70 - 99 03/16/2018 [facility] CHEM PANEL Sodium Lvl 138 135 - 145 03/16/2018 [facility] HEMATOLOGY Hgb 8.1 14.0 - 18.0 03/16/2018 [facility] HEMATOLOGY Hct 26.4 42.0 - 54.0 03/16/2018 [facility] HEMATOLOGY MCV 74.5 80.0 - 94.0 03/16/2018 [facility] HEMATOLOGY MCH 23.0 27.0 - 31.0 03/16/2018 [facility] HEMATOLOGY RDW 19.0 11.5 - 14.5 03/16/2018 [facility] HEMATOLOGY Platelet 382 133 - 450 03/16/2018 [facility] HEMATOLOGY MPV 8.0 7.4 - 10.4 03/16/2018 [facility] HEMATOLOGY MCHC 30.8 32.0 - 36.0 03/16/2018 [facility] HEMATOLOGY WBC 7.3 3.7 - 10.4 03/16/2018 [facility] HEMATOLOGY RBC 3.54 4.70 - 6.10 03/16/2018 [facility] HEMATOLOGY Microcyte 1+ *ABN* (03/16/18 3:53 AM) None Seen 03/16/2018 [facility] HEMATOLOGY Eosinophils 4.2 0.0 - 4.0 03/16/2018 [facility] HEMATOLOGY Basophils 1.0 0.0 - 1.0 03/16/2018 [facility] HEMATOLOGY Eosinophils # 0.3 0.0 - 0.5 03/16/2018 [facility] HEMATOLOGY Basophils # 0.1 0.0 - 0.2 03/16/2018 [facility] HEMATOLOGY Segs 59.4 45.0 - 75.0 03/16/2018 [facility] HEMATOLOGY Lymphocytes 28.6 20.0 - 40.0 03/16/2018 [facility] HEMATOLOGY Monocytes 6.8 2.0 - 12.0 03/16/2018 [facility] HEMATOLOGY Neutrophils # 4.3 1.5 - 8.1 03/16/2018 [facility] HEMATOLOGY Lymphocytes # 2.1 1.0 - 5.5 03/16/2018 [facility] HEMATOLOGY Monocytes # 0.5 0.0 - 0.8 03/16/2018 [facility] IMMUNOLOGY C-REACTIVE PROTEIN 77.5 <=2.9 mg/L 03/16/2018 [facility] HEMATOLOGY Eosinophils # 0.3 0.0 - 0.5 03/15/2018 [facility] HEMATOLOGY Basophils # 0.1 0.0 - 0.2 03/15/2018 [facility] HEMATOLOGY Eosinophils 3.2 0.0 - 4.0 03/15/2018 [facility] TOXICOLOGY Ethanol Lvl <3 03/15/2018 [facility] TOXICOLOGY Etoh (%) <0.003 03/15/2018 [facility] HEMATOLOGY PTT 34.7 22.9 - 35.8 03/15/2018 [facility] HEMATOLOGY INR 1.07 0.85 - 1.17 03/15/2018 [facility] HEMATOLOGY PT 13.9 12.0 - 14.7 03/15/2018 [facility] DRUG SCREEN UDS Note See Note (03/14/18 9:33 PM) 03/15/2018 [facility] DRUG SCREEN U Phencyclidine Scr Nega tive *NA* (03/14/18 9:33 PM) Negative 03/15/2018 [facility] DRUG SCREEN U Cocaine Scr Nega tive *NA* (03/14/18 9:33 PM) Negative 03/15/2018 [facility] DRUG SCREEN U Cannab Scr Posi tive *ABN* (03/14/18 9:33 PM) Negative 03/15/2018 [facility] DRUG SCREEN U Opiate Scr Posi tive *ABN* (03/14/18 9:33 PM) Negative 03/15/2018 [facility] DRUG SCREEN U Benzodiaz Scr Posi tive *ABN* (03/14/18 9:33 PM) Negative 03/15/2018 [facility] DRUG SCREEN U Chelsie Scr Nega tive *NA* (03/14/18 9:33 PM) Negative 03/15/2018 [facility] DRUG SCREEN U Amph Scr Nega tive *NA* (03/14/18 9:33 PM) Negative 03/15/2018 [facility] URINE AND STOOL UA Hyal Cast 6 0 - 2 03/15/2018 [facility] URINE AND STOOL UA Tr Phos Michelle Occasional /HPF None Seen /HPF 03/15/2018 [facility] URINE AND STOOL UA Sq Epi None Seen 03/15/2018 [facility] URINE AND STOOL UA Urobilinogen <=1.0 mg/dL 0.1 - 1.0 03/15/2018 [facility] URINE AND STOOL UA Ketones Negative 03/15/2018 [facility] URINE AND STOOL UA Color Ken *ABN* (03/14/18 9:33 PM) Yellow 03/15/2018 [facility] URINE AND STOOL UA Turbidity Marked *ABN* (03/14/18 9:33 PM) Clear 03/15/2018 [facility] URINE AND STOOL UA Spec Grav 1.014 <=1.030 03/15/2018 [facility] URINE AND STOOL UA pH 7.0 5.0 - 8.0 03/15/2018 [facility] URINE AND STOOL UA Bacteria Many /HPF None Seen /HPF 03/15/2018 [facility] URINE AND STOOL UA RBC 8 0 - 2 03/15/2018 [facility] URINE AND STOOL UA Amorph Michelle Moderate /HPF None Seen /HPF 03/15/2018 [facility] URINE AND STOOL UA Mucus Few /LPF None Seen /LPF 03/15/2018 [facility] URINE AND STOOL UA Nitrite Positive *ABN* (03/14/18 9:33 PM) Negative 03/15/2018 [facility] URINE AND STOOL UA Leuk Est Large *ABN* (03/14/18 9:33 PM) Negative 03/15/2018 [facility] URINE AND STOOL UA WBC 45 0 - 5 03/15/2018 [facility] URINE AND STOOL UA Glucose Negative mg/dL Negative mg/dL 03/15/2018 [facility] URINE AND STOOL UA Protein 100 mg/dL Negative mg/dL 03/15/2018 [facility] URINE AND STOOL UA Blood Negative (03/14/18 9:33 PM) Negative 03/15/2018 [facility] URINE AND STOOL UA Bili Negative *NA* (03/14/18 9:33 PM) Negative 03/15/2018 [facility] ERTAPENEM:SUSC:PT:ISOLATE:ORDQN:NHUNG Culture: Urine >100,000 CFU/mL Providencia stuartii , Multi-drug Resistant Organism >100,000 CFU/mL Klebsiella pneumoniae ssp pneumoniae , Multi-drug Resistant Organism 03/15/2018 [facility] ERTAPENEM:SUSC:PT:ISOLATE:ORDQN:NHUNG Klebsiella pneumoniae ssp pneumoniae Klebsiella pneumoniae ssp pneumoniae 03/15/2018 [facility] ERTAPENEM:SUSC:PT:ISOLATE:ORDQN:NHUNG Providencia stuartii Providencia stuartii 03/15/2018 [facility] CARDIAC ENZYMES Troponin-I <0.02 0.00 - 0.40 03/15/2018 [facility] CARDIAC ENZYMES Total CK 68 12 - 191 03/15/2018 [facility] CHEM PANEL Globulin 6.0 2.7 - 4.2 03/15/2018 [facility] CHEM PANEL A/G Ratio 0.5 0.7 - 1.6 03/15/2018 [facility] CHEM PANEL B/C Ratio 15 6 - 25 03/15/2018 [facility] CHEM PANEL Total Protein 9.2 6.4 - 8.4 03/15/2018 [facility] CHEM PANEL Bili Total 0.6 0.2 - 1.3 03/15/2018 [facility] CHEM PANEL AST 21 0 - 37 03/15/2018 [facility] CHEM PANEL Alk Phos 162 39 - 136 03/15/2018 [facility] CHEM PANEL Albumin Lvl 3.2 3.5 - 5.0 03/15/2018 [facility] CHEM PANEL ALT 34 0 - 65 03/15/2018 [facility] CHEM PANEL Procalcitonin Lvl <0.05 ng/mL 0.00 - 0.10 03/15/2018 [facility] CHEM PANEL Lactic Acid Lvl 1.0 0.5 - 2.2 03/15/2018 [facility] HEMATOLOGY Hypochrom 1+ (03/14/18 9:25 PM) None Seen 03/15/2018 [facility] HEMATOLOGY Polychrom slight 03/15/2018 [facility] HEMATOLOGY Basophils # 0.1 0.0 - 0.2 03/15/2018 [facility] HEMATOLOGY Plt Morph Leeann l (03/14/18 9:25 PM) 03/15/2018 [facility] HEMATOLOGY RBC Morph Leeann l (03/14/18 9:25 PM) 03/15/2018 [facility] ELECTROLYTES AGAP 14.4 10.0 - 20.0 01/19/2018 [facility] ELECTROLYTES eGFR 77 01/19/2018 Result [...] should be multiplied by the estimated BMI. [facility] ELECTROLYTES Potassium Lvl 4.4 3.5 - 5.1 01/19/2018 [facility] ELECTROLYTES Sodium Lvl 138 135 - 145 01/19/2018 [facility] ELECTROLYTES Creatinine Lvl 1.2 3 0.50 - 1.40 01/19/2018 [facility] ELECTROLYTES BUN 23 7 - 22 01/19/2018 [facility] ELECTROLYTES Glucose Lvl 89 70 - 99 01/19/2018 [facility] ELECTROLYTES Calcium Lvl 8.9 8.5 - 10.5 01/19/2018 [facility] ELECTROLYTES CO2 20 24 - 32 01/19/2018 [facility] ELECTROLYTES Chloride Lvl 108 95 - 109 01/19/2018 [facility] MPV 8.2 7.4 - 10.4 01/19/2018 [facility] Hct 30.5 42.0 - 54.0 01/19/2018 [facility] Platelet 287 133 - 450 01/19/2018 [facility] WBC 8.0 3.7 - 10.4 01/19/2018 [facility] Hgb 9.9 14.0 - 18.0 01/19/2018 [facility] RBC 4.00 4.70 - 6.10 01/19/2018 [facility] [facility] MCH 24.7 27.0 - 31.0 01/19/2018 [facility] MCV 76.2 80.0 - 94.0 01/19/2018 [facility] RDW 18.2 11.5 - 14.5 01/19/2018 [facility] MCHC 32.4 32.0 - 36.0 01/19/2018 [facility] Segs-Bands # 4.6 1.5 - 8.1 01/19/2018 [facility] Basophils 0.6 0.0 - 1.0 01/19/2018 [facility] Microcyte 1+ *ABN* (01/19/18 4:42 AM) None Seen 01/19/2018 [facility] Lymphocytes # 1.9 1.0 - 5.5 01/19/2018 [facility] Eosinophils 3.8 0.0 - 4.0 01/19/2018 [facility] Monocytes 14.5 2.0 - 12.0 01/19/2018 [facility] Eosinophils # 0.3 0.0 - 0.5 01/19/2018 [facility] Lymphocytes 23.6 20.0 - 40.0 01/19/2018 [facility] Segs 57.5 45.0 - 75.0 01/19/2018 [facility] Monocytes # 1.2 0.0 - 0.8 01/19/2018 [facility] ELECTROLYTES AGAP 12.2 10.0 - 20.0 01/17/2018 [facility] ELECTROLYTES eGFR 80 01/17/2018 Result [...] should be multiplied by the estimated BMI. [facility] ELECTROLYTES Chloride Lvl 105 95 - 109 01/17/2018 [facility] ELECTROLYTES CO2 23 24 - 32 01/17/2018 [facility] ELECTROLYTES BUN 24 7 - 22 01/17/2018 [facility] ELECTROLYTES Sodium Lvl 136 135 - 145 01/17/2018 [facility] ELECTROLYTES Potassium Lvl 4.2 3.5 - 5.1 01/17/2018 [facility] ELECTROLYTES Calcium Lvl 9.1 8.5 - 10.5 01/17/2018 [facility] ELECTROLYTES Glucose Lvl 98 70 - 99 01/17/2018 [facility] ELECTROLYTES Creatinine Lvl 1.2 0 0.50 - 1.40 01/17/2018 [facility] RBC 4.14 4.70 - 6.10 01/17/2018 [facility] WBC 7.7 3.7 - 10.4 01/17/2018 [facility] Hgb 10.0 14.0 - 18.0 01/17/2018 [facility] MCHC 31.7 32.0 - 36.0 01/17/2018 [facility] MCH 24.1 27.0 - 31.0 01/17/2018 [facility] RDW 17.7 11.5 - 14.5 01/17/2018 [facility] MPV 8.2 7.4 - 10.4 01/17/2018 [facility] Platelet 340 133 - 450 01/17/2018 [facility] MCV 76.1 80.0 - 94.0 01/17/2018 [facility] Hct 31.5 42.0 - 54.0 01/17/2018 [facility] Monocytes # 0.6 0.0 - 0.8 01/17/2018 [facility] Eosinophils # 0.3 0.0 - 0.5 01/17/2018 [facility] HEMATOLOGY Microcyte 1+ *ABN* (01/17/18 9:52 AM) None Seen 01/17/2018 [facility] HEMATOLOGY Basophils # 0.1 0.0 - 0.2 01/17/2018 [facility] HEMATOLOGY Basophils 0.8 0.0 - 1.0 01/17/2018 [facility] HEMATOLOGY Eosinophils 4.4 0.0 - 4.0 01/17/2018 [facility] HEMATOLOGY Segs-Bands # 4.7 1.5 - 8.1 01/17/2018 [facility] HEMATOLOGY Lymphocytes # 1.9 1.0 - 5.5 01/17/2018 [facility] HEMATOLOGY Monocytes 8.0 2.0 - 12.0 01/17/2018 [facility] HEMATOLOGY Segs 61.6 45.0 - 75.0 01/17/2018 [facility] HEMATOLOGY Lymphocytes 25.2 20.0 - 40.0 01/17/2018 [facility] IMMUNOLOGY Prealbumin 11.6 18.0 - 45.0 01/17/2018 [facility] TOXICOLOGY Vanco Tr TND 2000 01/17/2018 [facility] TOXICOLOGY Vanco Tr 15.5 01/17/2018 [facility] URINE AND STOOL UA Urobilinogen <=1.0 mg/dL 0.1 - 1.0 01/16/2018 [facility] URINE AND STOOL UA Color Ltyellow 01/16/2018 [facility] URINE AND STOOL UA Sq Epi None Seen 01/16/2018 [facility] URINE AND STOOL UA Glucose Negative mg/dL Negative mg/dL 01/16/2018 [facility] URINE AND STOOL UA Ketones Trace mg/dL Negative mg/dL 01/16/2018 [facility] URINE AND STOOL UA Bili Negative *NA* (01/16/18 4:19 AM) Negative 01/16/2018 [facility] URINE AND STOOL UA Nitrite Negative (01/16/18 4:19 AM) Negative 01/16/2018 [facility] URINE AND STOOL UA Blood Negative (01/16/18 4:19 AM) Negative 01/16/2018 [facility] URINE AND STOOL UA Leuk Est Small *ABN* (01/16/18 4:19 AM) Negative 01/16/2018 [facility] URINE AND STOOL UA Spec Grav 1.015 <=1.030 01/16/2018 [facility] URINE AND STOOL UA Turbidity Clear (01/16/18 4:19 AM) Clear 01/16/2018 [facility] URINE AND STOOL UA pH 6.0 5.0 - 8.0 01/16/2018 [facility] URINE AND STOOL UA Protein 100 mg/dL Negative mg/dL 01/16/2018 [facility] URINE AND STOOL UA Bacteria Occasional /HPF None Seen /HPF 01/16/2018 [facility] URINE AND STOOL UA RBC 1 0 - 2 01/16/2018 [facility] URINE AND STOOL UA WBC 7 0 - 5 01/16/2018 [facility] CHEM PANEL Lactic Acid Lvl 0.7 0.5 - 2.2 01/15/2018 [facility] HEMATOLOGY PTT 30.3 22.9 - 35.8 01/15/2018 [facility] HEMATOLOGY PT 14.5 12.0 - 14.7 01/15/2018 [facility] HEMATOLOGY INR 1.13 0.85 - 1.17 01/15/2018 [facility] CARDIAC ENZYMES Troponin-I <0.02 0.00 - 0.40 01/15/2018 [facility] CARDIAC ENZYMES Total CK 434 12 - 191 01/15/2018 [facility] CARDIAC ENZYMES BNP 6 <=100 pg/mL 01/15/2018 [facility] CHEM PANEL Lactic Acid Lvl 2.0 0.5 - 2.2 01/15/2018 [facility] CHEM PANEL Procalcitonin Lvl 0.33 0.00 - 0.10 01/15/2018 [facility] CHEM PANEL eGFR 60 01/15/2018 [...] should be multiplied by the estimated BMI. [facility] CHEM PANEL Bili Total 0.5 0.2 - 1.3 01/15/2018 [facility] CHEM PANEL Potassium Lvl 4.1 [...] PANEL Phosphorus 2.9 2.5 - 4.5 01/15/2018 [facility] HEMATOLOGY MPV 8.2 7.4 - 10.4 01/15/2018 [facility] HEMATOLOGY RDW 18.0 11.5 - 14.5 01/15/2018 [facility] HEMATOLOGY Platelet 466 133 - 450 01/15/2018 [facility] HEMATOLOGY MCHC 32.3 32.0 - 36.0 01/15/2018 [facility] HEMATOLOGY RBC 4.69 4.70 - 6.10 01/15/2018 [facility] HEMATOLOGY Hgb 11.5 14.0 - 18.0 01/15/2018 [facility] HEMATOLOGY Hct 35.6 42.0 - 54.0 01/15/2018 [facility] HEMATOLOGY WBC 13.3 3.7 - 10.4 01/15/2018 [facility] HEMATOLOGY MCH 24.5 27.0 - 31.0 01/15/2018 [facility] MCV 75.9 80.0 - 94.0 01/15/2018 [facility] Sed Rate 80 0 - 15 01/15/2018 [facility] Eosinophils # 0.5 0.0 - 0.5 01/15/2018 [facility] Basophils # 0.1 0.0 - 0.2 01/15/2018 [facility] Microcyte 1+ *ABN* (01/15/18 7:52 AM) None Seen 01/15/2018 [facility] Monocytes 11.1 2.0 - 12.0 01/15/2018 [facility] Lymphocytes 16.4 20.0 - 40.0 01/15/2018 [facility] Lymphocytes # 2.2 1.0 - 5.5 01/15/2018 [facility] Segs 68.3 45.0 - 75.0 01/15/2018 [facility] Monocytes # 1.5 0.0 - 0.8 01/15/2018 [facility] Eosinophils 3.5 0.0 - 4.0 01/15/2018 [facility] Basophils 0.7 0.0 - 1.0 01/15/2018 [facility] Segs-Bands # 9.1 1.5 - 8.1 01/15/2018 [facility] IMMUNOLOGY CRP, High Sensitivity >19 0.0 mg/L 01/15/2018 [facility] C-REACTIVE PROTEIN 93.8 <=2.9 mg/L 10/22/2017 [facility] CHEM PANEL eGFR 70 10/22/2017 Result Comment: [...] should be multiplied by the estimated BMI. [facility] CHEM PANEL Sodium Lvl 145 135 - 145 10/22/2017 [facility] CHEM PANEL Chloride Lvl 113 95 - 109 10/22/2017 [facility] CHEM PANEL Potassium Lvl 4.9 3.5 - 5.1 10/22/2017 [facility] CHEM PANEL Creatinine Lvl 1.34 0.50 - 1.40 10/22/2017 [facility] CHEM PANEL BUN 28 7 - 22 10/22/2017 [facility] CHEM PANEL Calcium Lvl 8.5 8.5 - 10.5 10/22/2017 [facility] CHEM PANEL CO2 24 24 - 32 10/22/2017 [facility] CHEM PANEL AGAP 12.9 10.0 - 20.0 10/22/2017 [facility] CHEM PANEL Glucose Lvl 79 70 - 99 10/22/2017 [facility] CHEM PANEL eGFR 59 10/21/2017 Result Comment: [...] should be multiplied by the estimated BMI. [facility] CHEM PANEL AGAP 15.4 10.0 - 20.0 10/21/2017 [facility] CHEM PANEL Calcium Lvl 8.5 8.5 - 10.5 10/21/2017 [facility] CHEM PANEL CO2 22 24 - 32 10/21/2017 [facility] CHEM PANEL Chloride Lvl 110 95 - 109 10/21/2017 [facility] CHEM PANEL Potassium Lvl 4.4 3.5 - 5.1 10/21/2017 [facility] CHEM PANEL Sodium Lvl 143 135 - 145 10/21/2017 [facility] CHEM PANEL Creatinine Lvl 1.53 0.50 - 1.40 10/21/2017 [facility] CHEM PANEL Glucose Lvl 81 70 - 99 10/21/2017 [facility] CHEM PANEL BUN 35 7 - 22 10/21/2017 [facility] TOXICOLOGY Vanco Lvl 16.0 10/21/2017 [facility] CHEM PANEL eGFR 44 10/20/2017 Result Comment: [...] should be multiplied by the estimated BMI. [facility] CHEM PANEL Glucose Lvl 98 70 - 99 10/20/2017 [facility] CHEM PANEL BUN 39 7 - 22 10/20/2017 [facility] CHEM PANEL Chloride Lvl 108 95 - 109 10/20/2017 [facility] CHEM PANEL CO2 25 24 - 32 10/20/2017 [facility] CHEM PANEL Calcium Lvl 8.4 8.5 - 10.5 10/20/2017 [facility] CHEM PANEL AGAP 12.9 10.0 - 20.0 10/20/2017 [facility] CHEM PANEL Creatinine Lvl 1.96 0.50 - 1.40 10/20/2017 [facility] CHEM PANEL Potassium Lvl 4.9 3.5 - 5.1 10/20/2017 [facility] CHEM PANEL Sodium Lvl 141 135 - 145 10/20/2017 [facility] TOXICOLOGY Vanco Tr TND 4:00 10/20/2017 [facility] TOXICOLOGY Vanco Tr 14.6 10/20/2017 [facility] HEMATOLOGY Platelet 236 133 - 450 10/18/2017 [facility] HEMATOLOGY MPV 8.4 7.4 - 10.4 10/18/2017 [facility] HEMATOLOGY MCHC 32.6 32.0 - 36.0 10/18/2017 [facility] HEMATOLOGY RDW 20.6 11.5 - 14.5 10/18/2017 [facility] HEMATOLOGY MCV 76.2 80.0 - 94.0 10/18/2017 [facility] HEMATOLOGY MCH 24.8 27.0 - 31.0 10/18/2017 [facility] HEMATOLOGY Hct 27.4 42.0 - 54.0 10/18/2017 [facility] HEMATOLOGY RBC 3.60 4.70 - 6.10 10/18/2017 [facility] HEMATOLOGY Hgb 8.9 14.0 - 18.0 10/18/2017 [facility] HEMATOLOGY WBC 9.3 3.7 - 10.4 10/18/2017 [facility] HEMATOLOGY Basophils # 0.1 0.0 - 0.2 10/18/2017 [facility] HEMATOLOGY Microcyte 1+ *ABN* (10/18/17 3:17 AM) None Seen 10/18/2017 [facility] HEMATOLOGY Basophils 0.7 0.0 - 1.0 10/18/2017 [facility] HEMATOLOGY Lymphocytes # 2.1 1.0 - 5.5 10/18/2017 [facility] HEMATOLOGY Segs-Bands # 5.6 1.5 - 8.1 10/18/2017 [facility] HEMATOLOGY Eosinophils 6.0 0.0 - 4.0 10/18/2017 [facility] HEMATOLOGY Monocytes # 0.9 0.0 - 0.8 10/18/2017 [facility] HEMATOLOGY Eosinophils # 0.6 0.0 - 0.5 10/18/2017 [facility] HEMATOLOGY Monocytes 10.1 2.0 - 12.0 10/18/2017 [facility] HEMATOLOGY Lymphocytes 23.0 20.0 - 40.0 10/18/2017 [facility] HEMATOLOGY Segs 60.2 45.0 - 75.0 10/18/2017 [facility] MOLECULAR DIAGNOSTIC HCV RNA VirLoad 218 10/17/2017 [facility] MOLECULAR DIAGNOSTIC HCV RNA Log10 2.3 10/17/2017 [facility] DRUG SCREEN U Methadone Scr Nega tive *NA* (3/15/18 11:43 PM) Negative 10/17/2017 [facility] DRUG SCREEN UDS Note See Note (10/16/17 11:43 PM) 10/17/2017 [facility] DRUG SCREEN U Cannab Scr Posi tive *ABN* (10/16/17 11:43 PM) Negative 10/17/2017 [facility] DRUG SCREEN U Opiate Scr Posi tive *ABN* (10/16/17 11:43 PM) Negative 10/17/2017 [facility] DRUG SCREEN U Propoxyph Scr Nega tive *NA* (10/16/17 11:43 PM) Negative 10/17/2017 [facility] DRUG SCREEN U Cocaine Scr Nega tive *NA* (10/16/17 11:43 PM) Negative 10/17/2017 [facility] DRUG SCREEN U Benzodia Scr Posi tive *ABN* (10/16/17 11:43 PM) Negative 10/17/2017 [facility] DRUG SCREEN U Phencyc Scr Nega tive *NA* (10/16/17 11:43 PM) Negative 10/17/2017 [facility] DRUG SCREEN U Chelsie Scr Nega tive *NA* (10/16/17 11:43 PM) Negative 10/17/2017 [facility] DRUG SCREEN U Amph Scr Nega tive *NA* (10/16/17 11:43 PM) Negative 10/17/2017 [facility] HEMATOLOGY Microcyte 1+ *ABN* (10/16/17 5:38 AM) None Seen 10/16/2017 [facility] HEMATOLOGY Eosinophils # 0.5 0.0 - 0.5 10/16/2017 [facility] HEMATOLOGY Monocytes # 0.8 0.0 - 0.8 10/16/2017 [facility] HEMATOLOGY Lymphocytes # 2.5 1.0 - 5.5 10/16/2017 [facility] HEMATOLOGY Segs-Bands # 3.3 1.5 - 8.1 10/16/2017 [facility] HEMATOLOGY Basophils 0.6 0.0 - 1.0 10/16/2017 [facility] HEMATOLOGY Eosinophils 7.2 0.0 - 4.0 10/16/2017 [facility] HEMATOLOGY Monocytes 11.7 2.0 - 12.0 10/16/2017 [facility] HEMATOLOGY Lymphocytes 34.4 20.0 - 40.0 10/16/2017 [facility] HEMATOLOGY Segs 46.1 45.0 - 75.0 10/16/2017 [facility] HEMATOLOGY Platelet 255 133 - 450 10/16/2017 [facility] HEMATOLOGY RDW 20.9 11.5 - 14.5 10/16/2017 [facility] HEMATOLOGY MCHC 32.0 32.0 - 36.0 10/16/2017 [facility] HEMATOLOGY MCH 24.3 27.0 - 31.0 10/16/2017 [facility] HEMATOLOGY MCV 75.8 80.0 - 94.0 10/16/2017 [facility] HEMATOLOGY MPV 8.0 7.4 - 10.4 10/16/2017 [facility] HEMATOLOGY Hct 28.6 42.0 - 54.0 10/16/2017 [facility] HEMATOLOGY Hgb 9.2 14.0 - 18.0 10/16/2017 [facility] HEMATOLOGY RBC 3.78 4.70 - 6.10 10/16/2017 [facility] HEMATOLOGY WBC 7.2 3.7 - 10.4 10/16/2017 [facility] TOXICOLOGY Vanco Tr TND 0500 10/16/2017 [facility] TOXICOLOGY Vanco Tr 16.6 10/16/2017 [facility] CHEM PANEL Total Protein 7.9 6.4 - 8.4 10/15/2017 [facility] CHEM PANEL B/C Ratio 19 6 - 25 10/15/2017 [facility] CHEM PANEL AST 18 0 - 37 10/15/2017 [facility] CHEM PANEL Globulin 5.4 2.7 - 4.2 10/15/2017 [facility] CHEM PANEL Albumin Lvl 2.5 3.5 - 5.0 10/15/2017 [facility] CHEM PANEL ALT 24 0 - 65 10/15/2017 [facility] CHEM PANEL A/G Ratio 0.5 0.7 - 1.6 10/15/2017 [facility] CHEM PANEL Alk Phos 115 39 - 136 10/15/2017 [facility] CHEM PANEL Bili Total 0.3 0.2 - 1.3 10/15/2017 [facility] CHEM PANEL AST 24 0 - 37 10/14/2017 [facility] CHEM PANEL ALT 23 0 - 65 10/14/2017 [facility] CHEM PANEL Total Protein 7.9 6.4 - 8.4 10/14/2017 [facility] CHEM PANEL Albumin Lvl 2.6 3.5 - 5.0 10/14/2017 [facility] CHEM PANEL B/C Ratio 20 6 - 25 10/14/2017 [facility] CHEM PANEL Globulin 5.3 2.7 - 4.2 10/14/2017 [facility] CHEM PANEL Bili Total 0.3 0.2 - 1.3 10/14/2017 [facility] CHEM PANEL Alk Phos 115 39 - 136 10/14/2017 [facility] CHEM PANEL A/G Ratio 0.5 0.7 - 1.6 10/14/2017 [facility] HEMATOLOGY Sed Rate 62 0 - 15 10/13/2017 [facility] IMMUNOLOGY C-REACTIVE PROTEIN 67.2 <=2.9 mg/L 10/13/2017 [facility] TOXICOLOGY Vanco Lvl 21.3 10/13/2017 [facility] HEMATOLOGY INR 1.11 0.85 - 1.17 10/12/2017 [facility] HEMATOLOGY PT 14.3 12.0 - 14.7 10/12/2017 [facility] TOXICOLOGY Vanco Tr TND 1200 10/10/2017 [facility] TOXICOLOGY Vanco Tr 20.0 10/10/2017 [facility] HEMATOLOGY Sed Rate 90 0 - 15 10/06/2017 [facility] IMMUNOLOGY C-REACTIVE PROTEIN 113.0 <=2.9 mg/L 10/06/2017 [facility] CHEM PANEL B/C Ratio 31 6 - 25 10/04/2017 [facility] CHEM PANEL A/G Ratio 0.4 0.7 - 1.6 10/04/2017 [facility] CHEM PANEL Globulin 6.2 2.7 - 4.2 10/04/2017 [facility] CHEM PANEL Bili Total 0.4 0.2 - 1.3 10/04/2017 [facility] CHEM PANEL ALT 58 0 - 65 10/04/2017 [facility] CHEM PANEL Albumin Lvl 2.7 3.5 - 5.0 10/04/2017 [facility] CHEM PANEL Total Protein 8.9 6.4 - 8.4 10/04/2017 [facility] CHEM PANEL Alk Phos 149 39 - 136 10/04/2017 [facility] CHEM PANEL AST 43 0 - 37 10/04/2017 [facility] HEMATOLOGY Hgb 9.8 14.0 - 18.0 10/04/2017 [facility] HEMATOLOGY RBC 3.96 4.70 - 6.10 10/04/2017 [facility] HEMATOLOGY WBC 7.7 3.7 - 10.4 10/04/2017 [facility] HEMATOLOGY Platelet 428 133 - 450 10/04/2017 [facility] HEMATOLOGY MPV 7.7 7.4 - 10.4 10/04/2017 [facility] HEMATOLOGY MCHC 32.6 32.0 - 36.0 10/04/2017 [facility] HEMATOLOGY MCH 24.7 27.0 - 31.0 10/04/2017 [facility] HEMATOLOGY RDW 20.2 11.5 - 14.5 10/04/2017 [facility] HEMATOLOGY MCV 75.6 80.0 - 94.0 10/04/2017 [facility] HEMATOLOGY Hct 29.9 42.0 - 54.0 10/04/2017 [facility] HEMATOLOGY Basophils # 0.1 0.0 - 0.2 10/04/2017 [facility] HEMATOLOGY Eosinophils # 0.3 0.0 - 0.5 10/04/2017 [facility] HEMATOLOGY Microcyte 1+ *ABN* (10/04/17 4:18 AM) None Seen 10/04/2017 [facility] HEMATOLOGY Lymphocytes # 2.1 1.0 - 5.5 10/04/2017 [facility] HEMATOLOGY Monocytes # 0.9 0.0 - 0.8 10/04/2017 [facility] HEMATOLOGY Segs-Bands # 4.2 1.5 - 8.1 10/04/2017 [facility] HEMATOLOGY Basophils 1.0 0.0 - 1.0 10/04/2017 [facility] HEMATOLOGY Monocytes 12.2 2.0 - 12.0 10/04/2017 [facility] HEMATOLOGY Eosinophils 4.4 0.0 - 4.0 10/04/2017 [facility] HEMATOLOGY Lymphocytes 27.6 20.0 - 40.0 10/04/2017 [facility] HEMATOLOGY Segs 54.8 45.0 - 75.0 10/04/2017 [facility] HEMATOLOGY Basophils # 0.1 0.0 - 0.2 10/02/2017 [facility] HEMATOLOGY Sed Rate >100 mm/hr 0 - 15 09/26/2017 [facility] TOXICOLOGY Amik Tr TND 1645 09/20/2017 [facility] TOXICOLOGY Amikacin Tr <2.5 09/20/2017 [facility] BLOOD BANK RESULTS ABO/Rh A POS 09/19/2017 [facility] BLOOD BANK RESULTS Antibody Scrn Negative (09/19/17 4:40 AM) 09/19/2017 [facility] BLOOD BANK RESULTS RBC product Product available (09/19/17 4:12 AM) 09/19/2017 [facility] TOXICOLOGY Vanco Lvl 8.0 09/19/2017 [facility] TOXICOLOGY Amikacin Tr <2.5 09/18/2017 [facility] TOXICOLOGY Amik Tr TND 15:30 09/18/2017 [facility] HEMATOLOGY PT 14.3 12.0 - 14.7 09/18/2017 [facility] HEMATOLOGY PTT 38.8 22.9 - 35.8 09/18/2017 [facility] HEMATOLOGY INR 1.11 0.85 - 1.17 09/18/2017 [facility] TOXICOLOGY Amikacin Lvl 19.7 09/17/2017 [facility] TOXICOLOGY Amikacin Lvl 8.4 09/15/2017 [facility] CHEM PANEL Lactic Acid Lvl 1.9 0.5 - 2.2 09/12/2017 [facility] IMMUNOLOGY CDC HIV 4th GEN Negat pavel *NA* (09/10/17 5:59 AM) Negative 09/10/2017 [facility] CEFTRIAXONE:SUSC:PT:ISOLATE:ORDQN:NHUNG Culture: Urine 50,000 - 100,000 CFU/mL Acinetobacter baumannii , Multi-drug Resistant Organism 10,000 - 50,000 CFU/mL Escherichia coli , Multi-drug Resistant Organism 50,000 - 100,000 CFU/mL Skin Joanie 09/10/2017 [facility] CEFTRIAXONE:SUSC:PT:ISOLATE:ORDQN:NHUNG Escherichia coli Escherichia coli 09/10/2017 [facility] CEFTRIAXONE:SUSC:PT:ISOLATE:ORDQN:NHUNG Acinetobacter baumannii Acinetobacter baumannii 09/10/2017 [facility] URINE AND STOOL UA Sq Epi None Seen (09/09/17 11:25 PM) Few 09/10/2017 [facility] URINE AND STOOL UA Leuk Est Moderate *ABN* (09/09/17 11:25 PM) Negative 09/10/2017 [facility] URINE AND STOOL Micro? Performed (09/09/17 11:25 PM) 09/10/2017 [facility] URINE AND STOOL UA Nitrite Positive *ABN* (09/09/17 11:25 PM) Negative 09/10/2017 [facility] URINE AND STOOL UA Glucose Negative (09/09/17 11:25 PM) Negative 09/10/2017 [facility] URINE AND STOOL UA Ketones Negative *NA* (09/09/17 11:25 PM) Negative 09/10/2017 [facility] URINE AND STOOL UA Blood Small *ABN* (09/09/17 11:25 PM) Negative 09/10/2017 [facility] URINE AND STOOL UA Urobilinogen 0.2 0.1 - 1.0 09/10/2017 [facility] URINE AND STOOL UA Protein 100 mg/dL Negative mg/dL 09/10/2017 [facility] URINE AND STOOL UA pH 7.0 5.0 - 8.0 09/10/2017 [facility] [facility] URINE AND STOOL UA Bili Negative *NA* (09/09/17 11:25 PM) Negative 09/10/2017 [facility] URINE AND STOOL UA Spec Grav 1.020 <=1.030 09/10/2017 [facility] URINE AND STOOL UA WBC Packed *ABN* (09/09/17 11:25 PM) None Seen 09/10/2017 [facility] URINE AND STOOL UA RBC None Seen (09/09/17 11:25 PM) 0 - 2 09/10/2017 [facility] URINE AND STOOL UA Bacteria Many /HPF None Seen /HPF 09/10/2017 [facility] URINE AND STOOL UA Amorph Michelle Moderate /HPF None Seen /HPF 09/10/2017 [facility] URINE AND STOOL UA Color Yellow *NA* (09/09/17 11:25 PM) Yellow 09/10/2017 [facility] URINE AND STOOL UA Turbidity Cloudy *ABN* (09/09/17 11:25 PM) Clear 09/10/2017 [facility] CARDIAC ENZYMES Total CK 22 12 - 191 09/10/2017 [facility] CARDIAC ENZYMES Troponin-I <0.02 0.00 - 0.40 09/10/2017 [facility] CHEM PANEL Procalcitonin Lvl 0.22 0.00 - 0.10 09/10/2017 [facility] CHEM PANEL Lactic Acid Lvl 2.3 0.5 - 2.2 09/10/2017 [facility] HEMATOLOGY INR 1.10 0.85 - 1.17 09/10/2017 [facility] HEMATOLOGY PT 14.2 12.0 - 14.7 09/10/2017 [facility] HEMATOLOGY PTT 37.4 22.9 - 35.8 09/10/2017 [facility] CHEM PANEL eGFR 99 05/28/2017 Result Comment: [...] should be multiplied by the estimated BMI. [facility] CHEM PANEL Glucose Lvl 83 70 - 99 05/28/2017 [facility] CHEM PANEL Creatinine Lvl 1.00 0.50 - 1.40 05/28/2017 [facility] CHEM PANEL Chloride Lvl 104 95 - 109 05/28/2017 [facility] CHEM PANEL Sodium Lvl 138 135 - 145 05/28/2017 [facility] CHEM PANEL Potassium Lvl 3.8 3.5 - 5.1 05/28/2017 [facility] CHEM PANEL BUN 6 7 - 22 05/28/2017 [facility] CHEM PANEL CO2 25 24 - 32 05/28/2017 [facility] CHEM PANEL Calcium Lvl 9.5 8.5 - 10.5 05/28/2017 [facility] CHEM PANEL AGAP 12.8 10.0 - 20.0 05/28/2017 [facility] HEMATOLOGY Basophils # 0.1 0.0 - 0.2 05/28/2017 [facility] HEMATOLOGY Lymphocytes # 3.3 1.0 - 5.5 05/28/2017 [facility] Segs-Bands # 3.4 1.5 - 8.1 05/28/2017 [facility] Basophils 0.7 0.0 - 1.0 05/28/2017 [facility] Eosinophils # 0.1 0.0 - 0.5 05/28/2017 [facility] Monocytes # 0.7 0.0 - 0.8 05/28/2017 [facility] RBC Morph Leeann l (05/28/17 4:09 AM) 05/28/2017 [facility] Eosinophils 1.4 0.0 - 4.0 05/28/2017 [facility] Plt Morph Leeann l (05/28/17 4:09 AM) 05/28/2017 [facility] Monocytes 9.4 2.0 - 12.0 05/28/2017 [facility] Segs 44.8 45.0 - 75.0 05/28/2017 [facility] Lymphocytes 43.7 20.0 - 40.0 05/28/2017 [facility] RDW 16.1 11.5 - 14.5 05/28/2017 [facility] MPV 7.9 7.4 - 10.4 05/28/2017 [facility] MCHC 31.9 32.0 - 36.0 05/28/2017 [facility] MCH 26.1 27.0 - 31.0 05/28/2017 [facility] Platelet 382 133 - 450 05/28/2017 [facility] MCV 81.8 80.0 - 94.0 05/28/2017 [facility] Hct 36.0 42.0 - 54.0 05/28/2017 [facility] Hgb 11.5 14.0 - 18.0 05/28/2017 [facility] RBC 4.40 4.70 - 6.10 05/28/2017 [facility] WBC 7.5 3.7 - 10.4 05/28/2017 [facility] CHEM PANEL eGFR 88 05/27/2017 Result Comment: [...] should be multiplied by the estimated BMI. [facility] CHEM PANEL Potassium Lvl 3.9 3.5 - 5.1 05/27/2017 [facility] CHEM PANEL CO2 25 24 - 32 05/27/2017 [facility] CHEM PANEL Chloride Lvl 105 95 - 109 05/27/2017 [facility] CHEM PANEL Calcium Lvl 9.2 8.5 - 10.5 05/27/2017 [facility] CHEM PANEL BUN 6 7 - 22 05/27/2017 [facility] CHEM PANEL Creatinine Lvl 1.10 0.50 - 1.40 05/27/2017 [facility] CHEM PANEL Sodium Lvl 140 135 - 145 05/27/2017 [facility] CHEM PANEL Glucose Lvl 89 70 - 99 05/27/2017 [facility] CHEM PANEL AGAP 13.9 10.0 - 20.0 05/27/2017 [facility] Basophils # 0.1 0.0 - 0.2 05/27/2017 [facility] Lymphocytes 24.2 20.0 - 40.0 05/27/2017 [facility] HEMATOLOGY Segs 69.5 45.0 - 75.0 05/27/2017 [facility] Monocytes 5.3 2.0 - 12.0 05/27/2017 [facility] HEMATOLOGY Eosinophils 0.3 0.0 - 4.0 05/27/2017 [facility] HEMATOLOGY Segs-Bands # 5.7 1.5 - 8.1 05/27/2017 [facility] HEMATOLOGY Basophils 0.7 0.0 - 1.0 05/27/2017 [facility] HEMATOLOGY Lymphocytes # 2.0 1.0 - 5.5 05/27/2017 [facility] Monocytes # 0.4 0.0 - 0.8 05/27/2017 [facility] MCH 27.3 27.0 - 31.0 05/27/2017 [facility] Platelet 364 133 - 450 05/27/2017 [facility] MCHC 33.2 32.0 - 36.0 05/27/2017 [facility] HEMATOLOGY RDW 15.9 11.5 - 14.5 05/27/2017 [facility] HEMATOLOGY MPV 7.7 7.4 - 10.4 05/27/2017 [facility] HEMATOLOGY Hgb 12.2 14.0 - 18.0 05/27/2017 [facility] HEMATOLOGY MCV 82.1 80.0 - 94.0 05/27/2017 [facility] HEMATOLOGY Hct 36.6 42.0 - 54.0 05/27/2017 [facility] HEMATOLOGY RBC 4.46 4.70 - 6.10 05/27/2017 [facility] WBC 8.3 3.7 - 10.4 05/27/2017 [facility] CHEM PANEL eGFR 88 05/26/2017 Result Comment: [...] should be multiplied by the estimated BMI. [facility] CHEM PANEL ALANINE AMINOTRANSFERASE 13 0 - 65 05/26/2017 [facility] CHEM PANEL Albumin Lvl 2.6 3.5 - 5.0 05/26/2017 [facility] CHEM PANEL Alk Phos 78 39 - 136 05/26/2017 [facility] CHEM PANEL ASPARTATE TRANSAMINASE 12 0 - 37 05/26/2017 [facility] CHEM PANEL Bili Total 0.2 0.2 - 1.3 05/26/2017 [facility] CHEM PANEL Glucose Lvl 96 70 - 99 05/26/2017 [facility] CHEM PANEL BUN 9 7 - 22 05/26/2017 [facility] CHEM PANEL Chloride Lvl 108 95 - 109 05/26/2017 [facility] CHEM PANEL CO2 24 24 - 32 05/26/2017 [facility] CHEM PANEL Calcium Lvl 8.8 8.5 - 10.5 05/26/2017 [facility] CHEM PANEL Total Protein 7.5 6.4 - 8.4 05/26/2017 [facility] CHEM PANEL Creatinine Lvl 1.10 0.50 - 1.40 05/26/2017 [facility] CHEM PANEL Potassium Lvl 3.2 3.5 - 5.1 05/26/2017 [facility] CHEM PANEL Sodium Lvl 141 135 - 145 05/26/2017 [facility] CHEM PANEL Globulin 4.9 2.7 - 4.2 05/26/2017 [facility] CHEM PANEL A/G Ratio 0.5 0.7 - 1.6 05/26/2017 [facility] CHEM PANEL B/C Ratio 8 6 - 25 05/26/2017 [facility] CHEM PANEL AGAP 12.2 10.0 - 20.0 05/26/2017 [facility] MCH 27.0 27.0 - 31.0 05/26/2017 [facility] MCHC 33.1 32.0 - 36.0 05/26/2017 [facility] RDW 15.8 11.5 - 14.5 05/26/2017 [facility] Hct 31.8 42.0 - 54.0 05/26/2017 [facility] MCV 81.5 80.0 - 94.0 05/26/2017 [facility] WBC 6.4 3.7 - 10.4 05/26/2017 [facility] RBC 3.90 4.70 - 6.10 05/26/2017 [facility] Hgb 10.5 14.0 - 18.0 05/26/2017 [facility] Platelet 320 133 - 450 05/26/2017 [facility] MPV 7.4 7.4 - 10.4 05/26/2017 [facility] HEMATOLOGY Segs 55.2 45.0 - 75.0 05/26/2017 [facility] Lymphocytes 31.1 20.0 - 40.0 05/26/2017 [facility] HEMATOLOGY Monocytes 10.1 2.0 - 12.0 05/26/2017 [facility] HEMATOLOGY Eosinophils 2.9 0.0 - 4.0 05/26/2017 [facility] HEMATOLOGY Eosinophils # 0.2 0.0 - 0.5 05/26/2017 [facility] HEMATOLOGY Lymphocytes # 2.0 1.0 - 5.5 05/26/2017 [facility] Monocytes # 0.6 0.0 - 0.8 05/26/2017 [facility] HEMATOLOGY Basophils 0.7 0.0 - 1.0 05/26/2017 [facility] HEMATOLOGY Segs-Bands # 3.6 1.5 - 8.1 05/26/2017 [facility] HEMATOLOGY Basophils # 0.0 0.0 - 0.2 05/25/2017 [facility] HEMATOLOGY Eosinophils # 0.1 0.0 - 0.5 05/25/2017 [facility] MOLECULAR DIAGNOSTIC C difficile DNA Negative (05/24/17 12:28 PM) Negative 05/24/2017 [facility] IMMUNOLOGY Prealbumin 7.5 18.0 - 45.0 05/24/2017 [facility] IMMUNOLOGY C-REACTIVE PROTEIN 124.0 <=2.9 mg/L 05/24/2017 [facility] CHEM PANEL Magnesium Lvl 1.7 1.8 - 2.4 05/23/2017 [facility] CHEM PANEL Procalcitonin Lvl 2.05 0.00 - 0.10 05/23/2017 Result Comment: Critical Result(s) jamildai Kelley at 05/23/2017 04:21 by DB. Read back OK. [facility] CHEM PANEL ALT 13 0 - 65 05/23/2017 [facility] CHEM PANEL Albumin Lvl 2.6 3.5 - 5.0 05/23/2017 [facility] CHEM PANEL Total Protein 7.6 6.4 - 8.4 05/23/2017 [facility] CHEM PANEL Alk Phos 88 39 - 136 05/23/2017 [facility] CHEM PANEL AST 12 0 - 37 05/23/2017 [facility] CHEM PANEL Bili Total 0.3 0.2 - 1.3 05/23/2017 [facility] CHEM PANEL B/C Ratio 9 6 - 25 05/23/2017 [facility] CHEM PANEL A/G Ratio 0.5 0.7 - 1.6 05/23/2017 [facility] CHEM PANEL Globulin 5.0 2.7 - 4.2 05/23/2017 [facility] IMMUNOLOGY Prealbumin 8.6 18.0 - 45.0 05/23/2017 [facility] TOXICOLOGY Vanco Tr 10.7 05/23/2017 [facility] TOXICOLOGY Vanco Tr TND 0500 05/23/2017 [facility] CHEM PANEL Procalcitonin Lvl 0.43 0.00 - 0.10 05/22/2017 [facility] CHEM PANEL A/G Ratio 0.5 0.7 - 1.6 05/22/2017 [facility] CHEM PANEL Globulin 5.2 2.7 - 4.2 05/22/2017 [facility] CHEM PANEL Albumin Lvl 2.8 3.5 - 5.0 05/22/2017 [facility] CHEM PANEL Total Protein 8.0 6.4 - 8.4 05/22/2017 [facility] CHEM PANEL Bili Total 0.3 0.2 - 1.3 05/22/2017 [facility] CHEM PANEL Bili Indirect 0.2 0.0 - 1.0 05/22/2017 [facility] CHEM PANEL Bili Direct 0.1 0.0 - 0.3 05/22/2017 [facility] CHEM PANEL Alk Phos 104 39 - 136 05/22/2017 [facility] CHEM PANEL ALT 15 0 - 65 05/22/2017 [facility] CHEM PANEL AST 11 0 - 37 05/22/2017 [facility] CHEM PANEL Lipase Lvl 43 73 - 393 05/22/2017 [facility] CHEM PANEL Lactic Acid Lvl 0.9 0.5 - 2.2 05/22/2017 [facility] HEMATOLOGY PTT 36.0 22.9 - 35.8 05/22/2017 [facility] HEMATOLOGY PT 15.1 12.0 - 14.7 05/22/2017 [facility] HEMATOLOGY INR 1.18 0.85 - 1.17 05/22/2017 [facility] MOLECULAR DIAGNOSTIC KPC (carbapenem ase) Not Detected (05/22/17 2:11 AM) Not Detected 05/22/2017 [facility] MOLECULAR DIAGNOSTIC OXA (carbapenem ase) Not Detected (05/22/17 2:11 AM) Not Detected 05/22/2017 [facility] DIAGNOSTIC NDM (carbapenem ase) Not Detected (05/22/17 2:11 AM) Not Detected 05/22/2017 [facility] MOLECULAR DIAGNOSTIC VIM (carbapenem ase) Not Detected (05/22/17 2:11 AM) Not Detected 05/22/2017 [facility] DIAGNOSTIC Citrobacter spp . Not Detected (05/22/17 2:11 AM) Not Detected 05/22/2017 [facility] MOLECULAR DIAGNOSTIC Proteus spp. Not Detected (05/22/17 2:11 AM) Not Detected 05/22/2017 [facility] MOLECULAR DIAGNOSTIC Enterobacter sp p. Not Detected (05/22/17 2:11 AM) Not Detected 05/22/2017 [facility] MOLECULAR DIAGNOSTIC IMP (carbapenem ase) Not Detected (05/22/17 2:11 AM) Not Detected 05/22/2017 [facility] MOLECULAR DIAGNOSTIC CTX-M (ESBL) Detected *ABN* (05/22/17 2:11 AM) Not Detected 05/22/2017 [facility] MOLECULAR DIAGNOSTIC K. oxytoca Not Detected (05/22/17 2:11 AM) Not Detected 05/22/2017 [facility] MOLECULAR DIAGNOSTIC E. coli Detected *ABN* (05/22/17 2:11 AM) Not Detected 05/22/2017 [facility] MOLECULAR DIAGNOSTIC P. aeruginosa Not Detected (05/22/17 2:11 AM) Not Detected 05/22/2017 [facility] MOLECULAR DIAGNOSTIC K. pneumoniae Not Detected (05/22/17 2:11 AM) Not Detected 05/22/2017 [facility] MOLECULAR DIAGNOSTIC Acinetobacter s pp. Not Detected (05/22/17 2:11 AM) Not Detected 05/22/2017 [facility] URINE AND STOOL UA Urobilinogen <=1.0 mg/dL 0.1 - 1.0 05/22/2017 [facility] URINE AND STOOL UA Sq Epi None Seen 05/22/2017 [facility] URINE AND STOOL UA Color Yellow 05/22/2017 [facility] URINE AND STOOL UA WBC >182 0 - 5 05/22/2017 [facility] URINE AND STOOL UA RBC 110 0 - 2 05/22/2017 [facility] URINE AND STOOL UA Nitrite Positive *ABN* (05/22/17 2:11 AM) Negative 05/22/2017 [facility] URINE AND STOOL UA Bacteria Moderate /HPF None Seen /HPF 05/22/2017 [facility] URINE AND STOOL UA Mucus Few /LPF None Seen /LPF 05/22/2017 [facility] URINE AND STOOL UA Blood Moderate *ABN* (05/22/17 2:11 AM) Negative 05/22/2017 [facility] URINE AND STOOL UA Protein 100 mg/dL Negative mg/dL 05/22/2017 [facility] URINE AND STOOL UA Bili Negative *NA* (05/22/17 2:11 AM) Negative 05/22/2017 [facility] URINE AND STOOL UA Glucose Negative mg/dL Negative mg/dL 05/22/2017 [facility] URINE AND STOOL UA Leuk Est Large *ABN* (05/22/17 2:11 AM) Negative 05/22/2017 [facility] URINE AND STOOL UA Ketones Negative mg/dL Negative mg/dL 05/22/2017 [facility] URINE AND STOOL UA Turbidity Moderate *ABN* (05/22/17 2:11 AM) Clear 05/22/2017 [facility] URINE AND STOOL UA pH 6.0 5.0 - 8.0 05/22/2017 [facility] URINE AND STOOL UA Spec Grav 1.009 <=1.030 05/22/2017 [facility] HEMATOLOGY Eosinophils 7.1 0.0 - 4.0 03/06/2017 [facility] HEMATOLOGY Basophils 0.8 0.0 - 1.0 03/06/2017 [facility] HEMATOLOGY Segs 43.1 45.0 - 75.0 03/06/2017 [facility] HEMATOLOGY Lymphocytes 37.5 20.0 - 40.0 03/06/2017 [facility] HEMATOLOGY Monocytes 11.5 2.0 - 12.0 03/06/2017 [facility] HEMATOLOGY Eosinophils # 0.3 0.0 - 0.5 03/06/2017 [facility] HEMATOLOGY Segs-Bands # 1.9 1.5 - 8.1 03/06/2017 [facility] HEMATOLOGY Lymphocytes # 1.7 1.0 - 5.5 03/06/2017 [facility] HEMATOLOGY Monocytes # 0.5 0.0 - 0.8 03/06/2017 [facility] HEMATOLOGY MPV 8.3 7.4 - 10.4 03/06/2017 [facility] HEMATOLOGY MCH 28.1 27.0 - 31.0 03/06/2017 [facility] HEMATOLOGY MCHC 32.9 32.0 - 36.0 03/06/2017 [facility] HEMATOLOGY RDW 18.2 11.5 - 14.5 03/06/2017 [facility] HEMATOLOGY Platelet 184 133 - 450 03/06/2017 [facility] HEMATOLOGY Hgb 7.9 14.0 - 18.0 03/06/2017 [facility] HEMATOLOGY Hct 24.1 42.0 - 54.0 03/06/2017 [facility] HEMATOLOGY MCV 85.3 80.0 - 94.0 03/06/2017 [facility] HEMATOLOGY WBC 4.4 3.7 - 10.4 03/06/2017 [facility] HEMATOLOGY RBC 2.83 4.70 - 6.10 03/06/2017 [facility] CHEM PANEL A/G Ratio 0.5 0.7 - 1.6 03/05/2017 [facility] CHEM PANEL Globulin 4.6 2.7 - 4.2 03/05/2017 [facility] CHEM PANEL AGAP 13.7 10.0 - 20.0 03/05/2017 [facility] CHEM PANEL B/C Ratio 19 6 - 25 03/05/2017 [facility] CHEM PANEL eGFR 76 03/05/2017 Result Comment: [...] should be multiplied by the estimated BMI. [facility] CHEM PANEL Chloride Lvl 99 95 - 109 03/05/2017 [facility] CHEM PANEL CO2 27 24 - 32 03/05/2017 [facility] CHEM PANEL Albumin Lvl 2.4 3.5 - 5.0 03/05/2017 [facility] CHEM PANEL ALT 19 0 - 65 03/05/2017 [facility] CHEM PANEL AST 22 0 - 37 03/05/2017 [facility] CHEM PANEL Bili Total 0.2 0.2 - 1.3 03/05/2017 [facility] CHEM PANEL Alk Phos 107 39 - 136 03/05/2017 [facility] CHEM PANEL Glucose Lvl 100 70 - 99 03/05/2017 [facility] CHEM PANEL Potassium Lvl 4.7 3.5 - 5.1 03/05/2017 [facility] CHEM PANEL Sodium Lvl 135 135 - 145 03/05/2017 [facility] CHEM PANEL Calcium Lvl 9.1 8.5 - 10.5 03/05/2017 [facility] CHEM PANEL Total Protein 7.0 6.4 - 8.4 03/05/2017 [facility] CHEM PANEL Creatinine Lvl 1.24 0.50 - 1.40 03/05/2017 [facility] CHEM PANEL BUN 23 7 - 22 03/05/2017 [facility] HEMATOLOGY Monocytes # 1.0 0.0 - 0.8 03/05/2017 [facility] HEMATOLOGY Eosinophils # 0.3 0.0 - 0.5 03/05/2017 [facility] HEMATOLOGY RBC Morph Leeann l (03/05/17 5:56 AM) 03/05/2017 [facility] HEMATOLOGY Eosinophils 6.0 0.0 - 4.0 03/05/2017 [facility] HEMATOLOGY Monocytes 19.2 2.0 - 12.0 03/05/2017 [facility] HEMATOLOGY Segs 40.8 45.0 - 75.0 03/05/2017 [facility] HEMATOLOGY Lymphocytes 33.3 20.0 - 40.0 03/05/2017 [facility] HEMATOLOGY Plt Morph Leeann l (03/05/17 5:56 AM) 03/05/2017 [facility] HEMATOLOGY Lymphocytes # 1.7 1.0 - 5.5 03/05/2017 [facility] HEMATOLOGY Basophils 0.7 0.0 - 1.0 03/05/2017 [facility] HEMATOLOGY Segs-Bands # 2.0 1.5 - 8.1 03/05/2017 [facility] HEMATOLOGY MPV 8.6 7.4 - 10.4 03/05/2017 [facility] HEMATOLOGY MCV 85.1 80.0 - 94.0 03/05/2017 [facility] HEMATOLOGY MCH 27.6 27.0 - 31.0 03/05/2017 [facility] HEMATOLOGY RDW 17.8 11.5 - 14.5 03/05/2017 [facility] HEMATOLOGY Hct 25.6 42.0 - 54.0 03/05/2017 [facility] HEMATOLOGY MCHC 32.4 32.0 - 36.0 03/05/2017 [facility] HEMATOLOGY Hgb 8.3 14.0 - 18.0 03/05/2017 [facility] HEMATOLOGY RBC 3.01 4.70 - 6.10 03/05/2017 [facility] HEMATOLOGY Platelet 181 133 - 450 03/05/2017 [facility] HEMATOLOGY WBC 5.0 3.7 - 10.4 03/05/2017 [facility] HEMATOLOGY MCV 86.0 80.0 - 94.0 03/03/2017 [facility] HEMATOLOGY Hct 26.9 42.0 - 54.0 03/03/2017 [facility] HEMATOLOGY MPV 8.3 7.4 - 10.4 03/03/2017 [facility] HEMATOLOGY Platelet 234 133 - 450 03/03/2017 [facility] HEMATOLOGY RDW 17.1 11.5 - 14.5 03/03/2017 [facility] HEMATOLOGY MCH 28.7 27.0 - 31.0 03/03/2017 [facility] HEMATOLOGY MCHC 33.4 32.0 - 36.0 03/03/2017 [facility] HEMATOLOGY WBC 5.5 3.7 - 10.4 03/03/2017 [facility] HEMATOLOGY Hgb 9.0 14.0 - 18.0 03/03/2017 [facility] HEMATOLOGY RBC 3.13 4.70 - 6.10 03/03/2017 [facility] HEMATOLOGY Lymphocytes 31.1 20.0 - 40.0 03/03/2017 [facility] HEMATOLOGY Segs 49.8 45.0 - 75.0 03/03/2017 [facility] HEMATOLOGY Eosinophils # 0.4 0.0 - 0.5 03/03/2017 [facility] HEMATOLOGY Monocytes # 0.6 0.0 - 0.8 03/03/2017 [facility] HEMATOLOGY Basophils # 0.1 0.0 - 0.2 03/03/2017 [facility] HEMATOLOGY Eosinophils 6.5 0.0 - 4.0 03/03/2017 [facility] HEMATOLOGY Monocytes 11.5 2.0 - 12.0 03/03/2017 [facility] HEMATOLOGY Segs-Bands # 2.7 1.5 - 8.1 03/03/2017 [facility] HEMATOLOGY Basophils 1.1 0.0 - 1.0 03/03/2017 [facility] HEMATOLOGY Lymphocytes # 1.7 1.0 - 5.5 03/03/2017 [facility] CHEM PANEL eGFR 68 03/02/2017 Result Comment: [...] should be multiplied by the estimated BMI. [facility] CHEM PANEL Globulin 4.8 2.7 - 4.2 03/02/2017 [facility] CHEM PANEL AST 14 0 - 37 03/02/2017 [facility] CHEM PANEL A/G Ratio 0.5 0.7 - 1.6 03/02/2017 [facility] CHEM PANEL ALT 13 0 - 65 03/02/2017 [facility] CHEM PANEL Alk Phos 122 39 - 136 03/02/2017 [facility] CHEM PANEL Bili Total 0.2 0.2 - 1.3 03/02/2017 [facility] CHEM PANEL Potassium Lvl 5.1 3.5 - 5.1 03/02/2017 [facility] CHEM PANEL Chloride Lvl 105 95 - 109 03/02/2017 [facility] CHEM PANEL Sodium Lvl 138 135 - 145 03/02/2017 [facility] CHEM PANEL CO2 28 24 - 32 03/02/2017 [facility] CHEM PANEL AGAP 10.1 10.0 - 20.0 03/02/2017 [facility] CHEM PANEL Calcium Lvl 8.9 8.5 - 10.5 03/02/2017 [facility] CHEM PANEL B/C Ratio 18 6 - 25 03/02/2017 [facility] CHEM PANEL Glucose Lvl 98 70 - 99 03/02/2017 [facility] CHEM PANEL BUN 25 7 - 22 03/02/2017 [facility] CHEM PANEL Creatinine Lvl 1.36 0.50 - 1.40 03/02/2017 [facility] CHEM PANEL Albumin Lvl 2.4 3.5 - 5.0 03/02/2017 [facility] CHEM PANEL Total Protein 7.2 6.4 - 8.4 03/02/2017 [facility] CHEM PANEL Magnesium Lvl 1.5 1.8 - 2.4 03/02/2017 [facility] CHEM PANEL Phosphorus 3.0 2.5 - 4.5 03/02/2017 [facility] HEMATOLOGY Basophils # 0.1 0.0 - 0.2 03/02/2017 [facility] URINE AND STOOL UA Sq Epi RARE 03/01/2017 [facility] URINE AND STOOL UA Urobilinogen <=1.0 mg/dL 0.1 - 1.0 03/01/2017 [facility] URINE AND STOOL Micro? Performed *NA* (03/01/17 12:53 PM) 03/01/2017 [facility] URINE AND STOOL UA [place] Yeast Occasional /HPF None Seen /HPF 03/01/2017 [facility] URINE AND STOOL UA Bacteria Occasional /HPF None Seen /HPF 03/01/2017 [facility] URINE AND STOOL UA RBC 2 0 - 2 03/01/2017 [facility] URINE AND STOOL UA Blood Negative (03/01/17 12:53 PM) Negative 03/01/2017 [facility] [facility] [place] [facility] URINE AND STOOL UA Leuk Est Large *ABN* (03/01/17 12:53 PM) Negative 03/01/2017 [facility] URINE AND STOOL UA Hyph Yeast Occasional *ABN* (03/01/17 12:53 PM) None Seen 03/01/2017 [facility] URINE AND STOOL UA WBC 23 0 - 5 03/01/2017 [facility] URINE AND STOOL UA Nitrite Negative (03/01/17 12:53 PM) Negative 03/01/2017 [facility] URINE AND STOOL UA Color Light Yellow *NA* (03/01/17 12:53 PM) Yellow 03/01/2017 [facility] URINE AND STOOL UA Glucose Negative mg/dL Negative mg/dL 03/01/2017 [facility] URINE AND STOOL UA Ketones Negative mg/dL Negative mg/dL 03/01/2017 [facility] URINE AND STOOL UA Protein Negative mg/dL Negative mg/dL 03/01/2017 [facility] URINE AND STOOL UA Turbidity Clear (03/01/17 12:53 PM) Clear 03/01/2017 [facility] URINE AND STOOL UA Bili Negative *NA* (03/01/17 12:53 PM) Negative 03/01/2017 [facility] URINE AND STOOL UA Spec Grav 1.006 <=1.030 03/01/2017 [facility] URINE AND STOOL UA pH 6.0 5.0 - 8.0 03/01/2017 [facility] CHEM PANEL BUN 22 7 - 22 03/01/2017 [facility] CHEM PANEL Glucose Lvl 91 70 - 99 03/01/2017 [facility] CHEM PANEL CO2 26 24 - 32 03/01/2017 [facility] CHEM PANEL Creatinine Lvl 1.33 0.50 - 1.40 03/01/2017 [facility] CHEM PANEL Sodium Lvl 141 135 - 145 03/01/2017 [facility] CHEM PANEL Potassium Lvl 5.0 3.5 - 5.1 03/01/2017 [facility] CHEM PANEL Chloride Lvl 106 95 - 109 03/01/2017 [facility] CHEM PANEL eGFR 70 03/01/2017 Result Comment: [...] should be multiplied by the estimated BMI. [facility] CHEM PANEL Bili Total 0.1 0.2 - 1.3 03/01/2017 [facility] CHEM PANEL ALT 14 0 - 65 03/01/2017 [facility] CHEM PANEL Calcium Lvl 8.7 8.5 - 10.5 03/01/2017 [facility] CHEM PANEL Albumin Lvl 2.4 3.5 - 5.0 03/01/2017 [facility] CHEM PANEL AST 10 0 - 37 03/01/2017 [facility] CHEM PANEL Total Protein 6.4 6.4 - 8.4 03/01/2017 [facility] CHEM PANEL Alk Phos 126 39 - 136 03/01/2017 [facility] CHEM PANEL B/C Ratio 17 6 - 25 03/01/2017 [facility] CHEM PANEL Globulin 4.0 2.7 - 4.2 03/01/2017 [facility] CHEM PANEL AGAP 14.0 10.0 - 20.0 03/01/2017 [facility] CHEM PANEL A/G Ratio 0.6 0.7 - 1.6 03/01/2017 [facility] CHEM PANEL Magnesium Lvl 2.1 1.8 - 2.4 03/01/2017 [facility] CHEM PANEL Phosphorus 3.4 2.5 - 4.5 03/01/2017 [facility] HEMATOLOGY Basophils # 0.1 0.0 - 0.2 03/01/2017 [facility] CHEM PANEL Phosphorus 3.4 2.5 - 4.5 02/28/2017 [facility] CHEM PANEL Magnesium Lvl 1.5 1.8 - 2.4 02/28/2017 [facility] IMMUNOLOGY HIV Ag/Ab 4th Gen Negat pavel *NA* (02/25/17 1:32 AM) Negative 02/25/2017 [facility] IMMUNOLOGY Hep C Ab Posit pavel *ABN* (02/25/17 1:32 AM) 02/25/2017 [facility] IMMUNOLOGY Hep A Tot Negat pavel *NA* (02/25/17 1:32 AM) Negative 02/25/2017 [facility] IMMUNOLOGY Hep Bs Ab <3.1 <=7.4 mIU/mL 02/25/2017 [facility] IMMUNOLOGY Hep Bs Ag Negat pavel *NA* (02/25/17 1:32 AM) Negative 02/25/2017 [facility] IMMUNOLOGY Hep B Core Ab Negat pavel *NA* (02/25/17 1:32 AM) Negative 02/25/2017 [facility] MOLECULAR DIAGNOSTIC HCV RNA VirLoad Not Detected (02/25/17 1:32 AM) 02/25/2017 [facility] MOLECULAR DIAGNOSTIC HCV RNA Log10 <1.2 02/25/2017 [facility] TOXICOLOGY Vanco Tr TND 0200 02/25/2017 [facility] TOXICOLOGY Vanco Tr 32.4 02/25/2017 [facility] MOLECULAR DIAGNOSTIC C difficile DNA Negative (02/24/17 4:02 PM) Negative 02/24/2017 [facility] URINE AND STOOL UA Sq Epi None Seen 02/24/2017 [facility] URINE AND STOOL UA RBC 2 0 - 2 02/24/2017 [facility] URINE AND STOOL UA Mucus Few /LPF None Seen /LPF 02/24/2017 [facility] URINE AND STOOL UA Bacteria Few /HPF None Seen /HPF 02/24/2017 [facility] URINE AND STOOL UA Urobilinogen <=1.0 mg/dL 0.1 - 1.0 02/24/2017 [facility] URINE AND STOOL UA Color Light Yellow *NA* (02/24/17 4:02 PM) Yellow 02/24/2017 [facility] URINE AND STOOL UA Nitrite Negative (02/24/17 4:02 PM) Negative 02/24/2017 [facility] URINE AND STOOL UA Ketones Negative mg/dL Negative mg/dL 02/24/2017 [facility] URINE AND STOOL UA Blood Trace *ABN* (02/24/17 4:02 PM) Negative 02/24/2017 [facility] URINE AND STOOL UA Bili Negative *NA* (02/24/17 4:02 PM) Negative 02/24/2017 [facility] URINE AND STOOL UA Glucose Negative mg/dL Negative mg/dL 02/24/2017 [facility] URINE AND STOOL UA Turbidity Slight *ABN* (02/24/17 4:02 PM) Clear 02/24/2017 [facility] URINE AND STOOL UA Spec Grav 1.016 <=1.030 02/24/2017 [facility] URINE AND STOOL UA pH 7.0 5.0 - 8.0 02/24/2017 [facility] URINE AND STOOL UA Protein 50 mg/dL Negative mg/dL 02/24/2017 [facility] URINE AND STOOL UA WBC 64 0 - 5 02/24/2017 [facility] URINE AND STOOL UA Leuk Est Large *ABN* (02/24/17 4:02 PM) Negative 02/24/2017 [facility] HEMATOLOGY INR 1.18 0.85 - 1.17 02/24/2017 [facility] HEMATOLOGY PT 15.2 12.0 - 14.7 02/24/2017 [facility] HEMATOLOGY PTT 35.6 22.9 - 35.8 02/24/2017 [facility] CHEM PANEL Lactic Acid Lvl 1.6 0.5 - 2.2 02/23/2017 [facility] CHEM PANEL Bili Direct 0.0 0.0 - 0.3 02/23/2017 [facility] CHEM PANEL Bili Indirect 0.5 0.0 - 1.0 02/23/2017 [facility] URINE AND STOOL UA Ketones 15 mg/dL Negative mg/dL 02/23/2017 [facility] URINE AND STOOL UA Blood Large *ABN* (02/23/17 2:15 PM) Negative 02/23/2017 [facility] URINE AND STOOL UA Bili Negative (02/23/17 2:15 PM) Negative 02/23/2017 [facility] URINE AND STOOL UA Protein 100 mg/dL Negative mg/dL 02/23/2017 [facility] URINE AND STOOL UA Glucose Negative (02/23/17 2:15 PM) Negative 02/23/2017 [facility] URINE AND STOOL UA Color Yellow (02/23/17 2:15 PM) Yellow 02/23/2017 [facility] URINE AND STOOL UA Turbidity Cloudy *ABN* (02/23/17 2:15 PM) Clear 02/23/2017 [facility] URINE AND STOOL UA pH 7.0 5.0 - 8.0 02/23/2017 [facility] URINE AND STOOL UA Spec Grav 1.030 <=1.030 02/23/2017 [facility] URINE AND STOOL UA Leuk Est Large *ABN* (02/23/17 2:15 PM) Negative 02/23/2017 [facility] URINE AND STOOL UA Urobilinogen 0.2 0.1 - 1.0 02/23/2017 [facility] URINE AND STOOL UA Nitrite Positive *ABN* (02/23/17 2:15 PM) Negative 02/23/2017 [facility] URINE AND STOOL UA RBC 6-10 /HPF 0 - 2 02/23/2017 [facility] URINE AND STOOL UA Sq Epi Occasional /LPF Few /LPF 02/23/2017 [facility] URINE AND STOOL UA WBC >100 /HPF None Seen /HPF 02/23/2017 [facility] URINE AND STOOL UA Bacteria Many /HPF None Seen /HPF 02/23/2017 [facility] CHEM PANEL eGFR 80 01/18/2017 Result Comment: [...] should be multiplied by the estimated BMI. [facility] CHEM PANEL CO2 21 24 - 32 01/18/2017 [facility] CHEM PANEL Chloride Lvl 111 95 - 109 01/18/2017 [facility] CHEM PANEL Calcium Lvl 8.8 8.5 - 10.5 01/18/2017 [facility] CHEM PANEL Sodium Lvl 139 135 - 145 01/18/2017 [facility] CHEM PANEL Potassium Lvl 4.2 3.5 - 5.1 01/18/2017 [facility] CHEM PANEL Creatinine Lvl 1.20 0.50 - 1.40 01/18/2017 [facility] CHEM PANEL BUN 22 7 - 22 01/18/2017 [facility] CHEM PANEL Glucose Lvl 90 70 - 99 01/18/2017 [facility] CHEM PANEL AGAP 11.2 10.0 - 20.0 01/18/2017 [facility] MPV 8.5 7.4 - 10.4 01/18/2017 [facility] Platelet 202 133 - 450 01/18/2017 [facility] HEMATOLOGY MCV 86.2 80.0 - 94.0 01/18/2017 [facility] Hct 30.6 42.0 - 54.0 01/18/2017 [facility] Hgb 10.0 14.0 - 18.0 01/18/2017 [facility] RBC 3.55 4.70 - 6.10 01/18/2017 [facility] WBC 8.6 3.7 - 10.4 01/18/2017 [facility] MCH 28.0 27.0 - 31.0 01/18/2017 [facility] RDW 17.1 11.5 - 14.5 01/18/2017 [facility] MCHC 32.5 32.0 - 36.0 01/18/2017 [facility] HEMATOLOGY Basophils 1.1 0.0 - 1.0 01/18/2017 [facility] HEMATOLOGY Segs-Bands # 3.6 1.5 - 8.1 01/18/2017 [facility] HEMATOLOGY Monocytes # 0.8 0.0 - 0.8 01/18/2017 [facility] HEMATOLOGY Lymphocytes # 3.7 1.0 - 5.5 01/18/2017 [facility] HEMATOLOGY Eosinophils # 0.4 0.0 - 0.5 01/18/2017 [facility] HEMATOLOGY Monocytes 9.1 2.0 - 12.0 01/18/2017 [facility] HEMATOLOGY Lymphocytes 42.8 20.0 - 40.0 01/18/2017 [facility] HEMATOLOGY Eosinophils 4.9 0.0 - 4.0 01/18/2017 [facility] HEMATOLOGY Basophils # 0.1 0.0 - 0.2 01/18/2017 [facility] HEMATOLOGY Segs 42.1 45.0 - 75.0 01/18/2017 [facility] CHEM PANEL eGFR 89 01/17/2017 [...] should be multiplied by the estimated BMI. [facility] CHEM PANEL AST 8 0 - 37 01/17/2017 [facility] CHEM PANEL Alk Phos 97 39 - 136 01/17/2017 [facility] CHEM PANEL Bili Total 0.1 0.2 - 1.3 01/17/2017 [facility] CHEM PANEL Potassium Lvl 3.7 3.5 - 5.1 01/17/2017 [facility] CHEM PANEL Sodium Lvl 140 135 - 145 01/17/2017 [facility] CHEM PANEL Chloride Lvl 112 95 - 109 01/17/2017 [facility] CHEM PANEL CO2 25 24 - 32 01/17/2017 [facility] CHEM PANEL AGAP 6.7 10.0 - 20.0 01/17/2017 [facility] CHEM PANEL B/C Ratio 15 6 - 25 01/17/2017 [facility] CHEM PANEL Calcium Lvl 9.1 8.5 - 10.5 01/17/2017 [facility] CHEM PANEL Total Protein 7.3 6.4 - 8.4 01/17/2017 [facility] CHEM PANEL Albumin Lvl 2.7 3.5 - 5.0 01/17/2017 [facility] CHEM PANEL Globulin 4.6 2.7 - 4.2 01/17/2017 [facility] CHEM PANEL A/G Ratio 0.6 0.7 - 1.6 01/17/2017 [facility] CHEM PANEL ALT 8 0 - 65 01/17/2017 [facility] CHEM PANEL BUN 16 7 - 22 01/17/2017 [facility] CHEM PANEL Creatinine Lvl 1.10 0.50 - 1.40 01/17/2017 [facility] CHEM PANEL Glucose Lvl 100 70 - 99 01/17/2017 [facility] CHEM PANEL Phosphorus 2.8 2.5 - 4.5 01/17/2017 [facility] HEMATOLOGY Platelet 212 133 - 450 01/17/2017 [facility] HEMATOLOGY MPV 8.3 7.4 - 10.4 01/17/2017 [facility] HEMATOLOGY WBC 5.7 3.7 - 10.4 01/17/2017 [facility] HEMATOLOGY Hgb 9.0 14.0 - 18.0 01/17/2017 [facility] HEMATOLOGY RBC 3.19 4.70 - 6.10 01/17/2017 [facility] HEMATOLOGY Hct 27.2 42.0 - 54.0 01/17/2017 [facility] HEMATOLOGY MCH 28.1 27.0 - 31.0 01/17/2017 [facility] HEMATOLOGY RDW 17.3 11.5 - 14.5 01/17/2017 [facility] HEMATOLOGY MCV 85.3 80.0 - 94.0 01/17/2017 [facility] HEMATOLOGY MCHC 32.9 32.0 - 36.0 01/17/2017 [facility] HEMATOLOGY Eosinophils 5.1 0.0 - 4.0 01/17/2017 [facility] HEMATOLOGY Basophils 1.0 0.0 - 1.0 01/17/2017 [facility] HEMATOLOGY Segs-Bands # 2.7 1.5 - 8.1 01/17/2017 [facility] Lymphocytes # 2.2 1.0 - 5.5 01/17/2017 [facility] HEMATOLOGY Monocytes # 0.4 0.0 - 0.8 01/17/2017 [facility] HEMATOLOGY Eosinophils # 0.3 0.0 - 0.5 01/17/2017 [facility] HEMATOLOGY Basophils # 0.1 0.0 - 0.2 01/17/2017 [facility] HEMATOLOGY Segs 47.7 45.0 - 75.0 01/17/2017 [facility] HEMATOLOGY Monocytes 7.7 2.0 - 12.0 01/17/2017 [facility] Lymphocytes 38.5 20.0 - 40.0 01/17/2017 [facility] CHEM PANEL Lactic Acid Lvl 0.8 0.5 - 2.2 01/16/2017 [facility] CARDIAC ENZYMES Troponin-I <0.02 0.00 - 0.40 01/16/2017 [facility] CARDIAC ENZYMES Total CK 47 12 - 191 01/16/2017 [facility] CARDIAC ENZYMES CK MB <0.5 0.5 - 3.6 01/16/2017 [facility] CARDIAC ENZYMES CK MB Index <1.1 0.0 - 2.5 01/16/2017 [facility] CHEM PANEL Lipase Lvl 115 73 - 393 01/16/2017 [facility] CHEM PANEL Magnesium Lvl 1.5 1.8 - 2.4 01/16/2017 [facility] CHEM PANEL eGFR 73 01/16/2017 [...] should be multiplied by the estimated BMI. [facility] CHEM PANEL A/G Ratio 0.6 [...] Potassium Lvl 3.8 3.5 - 5.1 01/16/2017 [facility] HEMATOLOGY RBC 4.28 4.70 - 6.10 01/16/2017 [facility] HEMATOLOGY WBC 15.8 3.7 - 10.4 01/16/2017 [facility] HEMATOLOGY Platelet 310 133 - 450 01/16/2017 [facility] HEMATOLOGY MCHC 32.9 32.0 - 36.0 01/16/2017 [facility] HEMATOLOGY MPV 8.0 7.4 - 10.4 01/16/2017 [facility] HEMATOLOGY RDW 17.5 11.5 - 14.5 01/16/2017 [facility] HEMATOLOGY Hct 36.4 42.0 - 54.0 01/16/2017 [facility] HEMATOLOGY Hgb 12.0 14.0 - 18.0 01/16/2017 [facility] HEMATOLOGY MCH 28.0 27.0 - 31.0 01/16/2017 [facility] HEMATOLOGY MCV 85.1 80.0 - 94.0 01/16/2017 [facility] HEMATOLOGY Basophils 0.4 0.0 - 1.0 01/16/2017 [facility] HEMATOLOGY Eosinophils 0.6 0.0 - 4.0 01/16/2017 [facility] HEMATOLOGY Eosinophils # 0.1 0.0 - 0.5 01/16/2017 [facility] HEMATOLOGY Monocytes # 1.0 0.0 - 0.8 01/16/2017 [facility] HEMATOLOGY Lymphocytes # 2.5 1.0 - 5.5 01/16/2017 [facility] HEMATOLOGY Segs-Bands # 12.1 1.5 - 8.1 01/16/2017 [facility] HEMATOLOGY Lymphocytes 16.1 20.0 - 40.0 01/16/2017 [facility] HEMATOLOGY Monocytes 6.5 2.0 - 12.0 01/16/2017 [facility] HEMATOLOGY Segs 76.4 45.0 - 75.0 01/16/2017 [facility] HEMATOLOGY Basophils # 0.1 0.0 - 0.2 01/16/2017 [facility] URINE AND STOOL UA Urobilinogen <=1.0 mg/dL 0.1 - 1.0 01/16/2017 [facility] URINE AND STOOL UA Sq Epi None Seen 01/16/2017 [facility] URINE AND STOOL UA Ketones Trace mg/dL Negative mg/dL 01/16/2017 [facility] URINE AND STOOL UA Glucose Negative mg/dL Negative mg/dL 01/16/2017 [facility] URINE AND STOOL UA Bili Negative *NA* (01/15/17 11:19 PM) Negative 01/16/2017 [facility] URINE AND STOOL UA Blood Small *ABN* (01/15/17 11:19 PM) Negative 01/16/2017 [facility] URINE AND STOOL UA Nitrite Positive *ABN* (01/15/17 11:19 PM) Negative 01/16/2017 [facility] URINE AND STOOL UA Protein >=300 mg/dL Negative mg/dL 01/16/2017 [facility] URINE AND STOOL UA WBC >182 0 - 5 01/16/2017 [facility] URINE AND STOOL UA RBC 38 0 - 2 01/16/2017 [facility] URINE AND STOOL UA Leuk Est Large *ABN* (01/15/17 11:19 PM) Negative 01/16/2017 [facility] URINE AND STOOL UA Bacteria Many /HPF None Seen /HPF 01/16/2017 [facility] URINE AND STOOL UA Hyph Yeast Occasional *ABN* (01/15/17 11:19 PM) None Seen 01/16/2017 [facility] URINE AND STOOL UA Color Yellow *NA* (01/15/17 11:19 PM) Yellow 01/16/2017 [facility] URINE AND STOOL UA Turbidity Marked *ABN* (01/15/17 11:19 PM) Clear 01/16/2017 [facility] URINE AND STOOL UA Spec Grav 1.014 <=1.030 01/16/2017 [facility] URINE AND STOOL UA pH 6.0 5.0 - 8.0 01/16/2017 [facility] CHEM PANEL eGFR 54 01/04/2017 [...] should be multiplied by the estimated BMI. [facility] CHEM PANEL Sodium Lvl 141 135 - 145 01/04/2017 [facility] CHEM PANEL Glucose Lvl 77 70 - 99 01/04/2017 [facility] CHEM PANEL Creatinine Lvl 1.66 0.50 - 1.40 01/04/2017 [facility] CHEM PANEL BUN 37 7 - 22 01/04/2017 [facility] CHEM PANEL AGAP 16.3 10.0 - 20.0 01/04/2017 [facility] CHEM PANEL Potassium Lvl 4.3 3.5 - 5.1 01/04/2017 [facility] CHEM PANEL Calcium Lvl 9.3 8.5 - 10.5 01/04/2017 [facility] CHEM PANEL Chloride Lvl 113 95 - 109 01/04/2017 [facility] CHEM PANEL CO2 16 24 - 32 01/04/2017 [facility] HEMATOLOGY Eosinophils # 0.2 0.0 - 0.5 01/04/2017 [facility] HEMATOLOGY Basophils # 0.1 0.0 - 0.2 01/04/2017 [facility] HEMATOLOGY Lymphocytes 54.7 20.0 - 40.0 01/04/2017 [facility] HEMATOLOGY Segs 33.4 45.0 - 75.0 01/04/2017 [facility] HEMATOLOGY Monocytes # 0.6 0.0 - 0.8 01/04/2017 [facility] HEMATOLOGY Monocytes 8.1 2.0 - 12.0 01/04/2017 [facility] HEMATOLOGY Lymphocytes # 3.8 1.0 - 5.5 01/04/2017 [facility] HEMATOLOGY Basophils 1.0 0.0 - 1.0 01/04/2017 [facility] HEMATOLOGY Eosinophils 2.8 0.0 - 4.0 01/04/2017 [facility] HEMATOLOGY Segs-Bands # 2.3 1.5 - 8.1 01/04/2017 [facility] HEMATOLOGY WBC 7.0 3.7 - 10.4 01/04/2017 [facility] HEMATOLOGY Hgb 8.7 14.0 - 18.0 01/04/2017 [facility] HEMATOLOGY RBC 3.07 4.70 - 6.10 01/04/2017 [facility] HEMATOLOGY MCHC 33.6 32.0 - 36.0 01/04/2017 [facility] HEMATOLOGY MCH 28.4 27.0 - 31.0 01/04/2017 [facility] HEMATOLOGY MCV 84.4 80.0 - 94.0 01/04/2017 [facility] HEMATOLOGY Hct 25.9 42.0 - 54.0 01/04/2017 [facility] HEMATOLOGY RDW 18.9 11.5 - 14.5 01/04/2017 [facility] HEMATOLOGY MPV 8.4 7.4 - 10.4 01/04/2017 [facility] HEMATOLOGY Platelet 341 133 - 450 01/04/2017 [facility] CHEM PANEL Procalcitonin Lvl 0.08 0.00 - 0.10 01/04/2017 [facility] IMMUNOLOGY C-REACTIVE PROTEIN 48.4 <=2.9 mg/L 01/04/2017 [facility] CARDIAC ENZYMES Troponin-T <0.010 0.000 - 0.100 01/02/2017 [facility] CARDIAC ENZYMES Troponin-I <0.015 ng/mL 0.00 - 0.40 01/02/2017 [facility] CARDIAC ENZYMES Total CK 75 12 - 191 01/02/2017 [facility] CARDIAC ENZYMES CK MB 1.1 0.5 - 3.6 01/02/2017 [facility] CARDIAC ENZYMES CK MB Index 1.5 0.0 - 2.5 01/02/2017 [facility] CARDIAC ENZYMES CK MB Index 1.0 0.0 - 2.5 01/02/2017 [facility] CARDIAC ENZYMES CK MB 0.9 0.5 - 3.6 01/02/2017 [facility] CARDIAC ENZYMES Troponin-T <0.010 0.000 - 0.100 01/02/2017 [facility] CARDIAC ENZYMES Troponin-I <0.02 0.00 - 0.40 01/02/2017 [facility] CARDIAC ENZYMES Total CK 94 12 - 191 01/02/2017 [facility] URINE AND STOOL UA WBC 102 0 - 5 01/02/2017 [facility] URINE AND STOOL UA pH 6.0 5.0 - 8.0 01/02/2017 [facility] URINE AND STOOL UA Protein >=300 mg/dL Negative mg/dL 01/02/2017 [facility] URINE AND STOOL UA Glucose Negative mg/dL Negative mg/dL 01/02/2017 [facility] URINE AND STOOL UA Hyph Yeast Occasional *ABN* (01/02/17 6:22 AM) None Seen 01/02/2017 [facility] URINE AND STOOL UA Nitrite Negative (01/02/17 6:22 AM) Negative 01/02/2017 [facility] URINE AND STOOL UA Blood Small *ABN* (01/02/17 6:22 AM) Negative 01/02/2017 [facility] URINE AND STOOL UA Bili Negative *NA* (01/02/17 6:22 AM) Negative 01/02/2017 [facility] URINE AND STOOL UA Leuk Est Large *ABN* (01/02/17 6:22 AM) Negative 01/02/2017 [facility] URINE AND STOOL UA Ketones Negative mg/dL Negative mg/dL 01/02/2017 [facility] URINE AND STOOL UA Urobilinogen <=1.0 mg/dL 0.1 - 1.0 01/02/2017 [facility] URINE AND STOOL UA [place] 9 01/02/2017 [facility] URINE AND STOOL UA Sq Epi None Seen 01/02/2017 [facility] URINE AND STOOL UA Color Yellow *NA* (01/02/17 6:22 AM) Yellow 01/02/2017 [facility] URINE AND STOOL UA Turbidity Marked *ABN* (01/02/17 6:22 AM) Clear 01/02/2017 [facility] URINE AND STOOL UA Spec Grav 1.011 <=1.030 01/02/2017 [facility] URINE AND STOOL UA RBC 3 0 - 2 01/02/2017 [facility] URINE AND STOOL UA [place] Yeast Many /HPF None Seen /HPF 01/02/2017 [facility] URINE AND STOOL UA Amorph Michelle Occasional /HPF None Seen /HPF 01/02/2017 [facility] URINE AND STOOL UA Uric Ac Michelle Moderate /HPF None Seen /HPF 01/02/2017 [facility] CHEM PANEL Magnesium Lvl 1.4 1.8 - 2.4 01/02/2017 [facility] CHEM PANEL Phosphorus 3.6 2.5 - 4.5 01/02/2017 [facility] CHEM PANEL Globulin 5.8 2.7 - 4.2 01/02/2017 [facility] CHEM PANEL AGAP 18.8 10.0 - 20.0 01/02/2017 [facility] CHEM PANEL A/G Ratio 0.6 0.7 - 1.6 01/02/2017 [facility] CHEM PANEL B/C Ratio 25 6 - 25 01/02/2017 [facility] CHEM PANEL eGFR 53 01/02/2017 Result Comment: [...] should be multiplied by the estimated BMI. [facility] CHEM PANEL Bili Total 0.3 0.2 - 1.3 01/02/2017 [facility] CHEM PANEL BUN 42 7 - 22 01/02/2017 [facility] CHEM PANEL Creatinine Lvl 1.68 0.50 - 1.40 01/02/2017 [facility] CHEM PANEL Calcium Lvl 8.2 8.5 - 10.5 01/02/2017 [facility] CHEM PANEL Glucose Lvl 95 70 - 99 01/02/2017 [facility] CHEM PANEL Sodium Lvl 140 135 - 145 01/02/2017 [facility] CHEM PANEL Potassium Lvl 3.8 3.5 - 5.1 01/02/2017 [facility] CHEM PANEL Alk Phos 120 39 - 136 01/02/2017 [facility] CHEM PANEL CO2 16 24 - 32 01/02/2017 [facility] CHEM PANEL Chloride Lvl 109 95 - 109 01/02/2017 [facility] CHEM PANEL AST 15 0 - 37 01/02/2017 [facility] CHEM PANEL ALT 14 0 - 65 01/02/2017 [facility] CHEM PANEL Albumin Lvl 3.2 3.5 - 5.0 01/02/2017 [facility] CHEM PANEL Total Protein 9.0 6.4 - 8.4 01/02/2017 [facility] HEMATOLOGY Basophils # 0.1 0.0 - 0.2 01/02/2017 [facility] HEMATOLOGY Eosinophils 0.4 0.0 - 4.0 01/02/2017 [facility] HEMATOLOGY Monocytes # 1.5 0.0 - 0.8 01/02/2017 [facility] HEMATOLOGY Lymphocytes # 3.0 1.0 - 5.5 01/02/2017 [facility] HEMATOLOGY Segs-Bands # 9.0 1.5 - 8.1 01/02/2017 [facility] HEMATOLOGY Basophils 0.5 0.0 - 1.0 01/02/2017 [facility] HEMATOLOGY Monocytes 10.9 2.0 - 12.0 01/02/2017 [facility] HEMATOLOGY Lymphocytes 22.2 20.0 - 40.0 01/02/2017 [facility] HEMATOLOGY Segs 66.0 45.0 - 75.0 01/02/2017 [facility] HEMATOLOGY MPV 8.1 7.4 - 10.4 01/02/2017 [facility] HEMATOLOGY Platelet 477 133 - 450 01/02/2017 [facility] HEMATOLOGY RDW 19.3 11.5 - 14.5 01/02/2017 [facility] HEMATOLOGY MCHC 32.8 32.0 - 36.0 01/02/2017 [facility] HEMATOLOGY MCH 28.1 27.0 - 31.0 01/02/2017 [facility] HEMATOLOGY MCV 85.6 80.0 - 94.0 01/02/2017 [facility] HEMATOLOGY Hct 29.2 42.0 - 54.0 01/02/2017 [facility] HEMATOLOGY Hgb 9.6 14.0 - 18.0 01/02/2017 [facility] HEMATOLOGY RBC 3.41 4.70 - 6.10 01/02/2017 [facility] HEMATOLOGY WBC 13.7 3.7 - 10.4 01/02/2017 [facility] CHEM PANEL Lipase Lvl 79 73 - 393 01/01/2017 [facility] CHEM PANEL Phosphorus 3.5 2.5 - 4.5 01/01/2017 [facility] CHEM PANEL Lactic Acid Lvl 1.1 0.5 - 2.2 01/01/2017 [facility] CHEM PANEL Magnesium Lvl 1.5 1.8 - 2.4 01/01/2017 [facility] ELECTROLYTES AGAP 21.3 10.0 - 20.0 01/01/2017 [facility] ELECTROLYTES eGFR 42 01/01/2017 Result Comment: The [...] should be multiplied by the estimated BMI. [facility] ELECTROLYTES CO2 16 24 - 32 01/01/2017 [facility] ELECTROLYTES Calcium Lvl 9.3 8.5 - 10.5 01/01/2017 [facility] ELECTROLYTES Sodium Lvl 137 135 - 145 01/01/2017 [facility] ELECTROLYTES Potassium Lvl 4.3 3.5 - 5.1 01/01/2017 [facility] ELECTROLYTES Chloride Lvl 104 95 - 109 01/01/2017 [facility] ELECTROLYTES Creatinine Lvl 2.0 5 0.50 - 1.40 01/01/2017 [facility] ELECTROLYTES Glucose Lvl 105 70 - 99 01/01/2017 [facility] ELECTROLYTES BUN 44 7 - 22 01/01/2017 [facility] HEMATOLOGY Basophils # 0.1 0.0 - 0.2 01/01/2017 [facility] HEMATOLOGY Monocytes # 1.5 0.0 - 0.8 01/01/2017 [facility] HEMATOLOGY Basophils 0.6 0.0 - 1.0 01/01/2017 [facility] HEMATOLOGY Eosinophils 0.3 0.0 - 4.0 01/01/2017 [facility] HEMATOLOGY Monocytes 9.8 2.0 - 12.0 01/01/2017 [facility] HEMATOLOGY Lymphocytes # 1.9 1.0 - 5.5 01/01/2017 [facility] HEMATOLOGY Segs-Bands # 11.6 1.5 - 8.1 01/01/2017 [facility] HEMATOLOGY Segs 76.6 45.0 - 75.0 01/01/2017 [facility] HEMATOLOGY Lymphocytes 12.7 20.0 - 40.0 01/01/2017 [facility] HEMATOLOGY MCH 28.0 27.0 - 31.0 01/01/2017 [facility] HEMATOLOGY RBC 3.97 4.70 - 6.10 01/01/2017 [facility] HEMATOLOGY WBC 15.2 3.7 - 10.4 01/01/2017 [facility] HEMATOLOGY MCHC 32.7 32.0 - 36.0 01/01/2017 [facility] HEMATOLOGY MCV 85.5 80.0 - 94.0 01/01/2017 [facility] HEMATOLOGY Hct 34.0 42.0 - 54.0 01/01/2017 [facility] HEMATOLOGY Hgb 11.1 14.0 - 18.0 01/01/2017 [facility] HEMATOLOGY Platelet 484 133 - 450 01/01/2017 [facility] HEMATOLOGY MPV 8.0 7.4 - 10.4 01/01/2017 [facility] HEMATOLOGY RDW 19.2 11.5 - 14.5 01/01/2017 [facility] ELECTROLYTES AGAP 17.2 10.0 - 20.0 12/25/2016 [facility] ELECTROLYTES eGFR 26 12/25/2016 Result [...] should be multiplied by the estimated BMI. [facility] ELECTROLYTES Calcium Lvl 9.1 8.5 - 10.5 12/25/2016 [facility] ELECTROLYTES CO2 19 24 - 32 12/25/2016 [facility] ELECTROLYTES Potassium Lvl 5.2 3.5 - 5.1 12/25/2016 [facility] ELECTROLYTES Chloride Lvl 109 95 - 109 12/25/2016 [facility] ELECTROLYTES BUN 61 7 - 22 12/25/2016 [facility] ELECTROLYTES Creatinine Lvl 3.0 0 0.50 - 1.40 12/25/2016 [facility] ELECTROLYTES Sodium Lvl 140 135 - 145 12/25/2016 [facility] ELECTROLYTES Glucose Lvl 99 70 - 99 12/25/2016 [facility] HEMATOLOGY MPV 8.6 7.4 - 10.4 12/25/2016 [facility] Platelet 340 133 - 450 12/25/2016 [facility] RDW 19.4 11.5 - 14.5 12/25/2016 [facility] MCHC 33.2 32.0 - 36.0 12/25/2016 [facility] HEMATOLOGY MCH 28.2 27.0 - 31.0 12/25/2016 [facility] HEMATOLOGY MCV 85.0 80.0 - 94.0 12/25/2016 [facility] HEMATOLOGY Hct 24.9 42.0 - 54.0 12/25/2016 [facility] HEMATOLOGY Hgb 8.3 14.0 - 18.0 12/25/2016 [facility] HEMATOLOGY RBC 2.93 4.70 - 6.10 12/25/2016 [facility] HEMATOLOGY WBC 8.2 3.7 - 10.4 12/25/2016 [facility] HEMATOLOGY Basophils # 0.1 0.0 - 0.2 12/25/2016 [facility] HEMATOLOGY Eosinophils # 0.6 0.0 - 0.5 12/25/2016 [facility] HEMATOLOGY Monocytes # 0.7 0.0 - 0.8 12/25/2016 [facility] HEMATOLOGY Segs 45.4 45.0 - 75.0 12/25/2016 [facility] HEMATOLOGY Lymphocytes 37.2 20.0 - 40.0 12/25/2016 [facility] HEMATOLOGY Lymphocytes # 3.0 1.0 - 5.5 12/25/2016 [facility] HEMATOLOGY Basophils 1.3 0.0 - 1.0 12/25/2016 [facility] HEMATOLOGY Segs-Bands # 3.7 1.5 - 8.1 12/25/2016 [facility] HEMATOLOGY Eosinophils 7.7 0.0 - 4.0 12/25/2016 [facility] Monocytes 8.4 2.0 - 12.0 12/25/2016 [facility] CHEM PANEL Magnesium Lvl 1.6 1.8 - 2.4 12/24/2016 [facility] CHEM PANEL Creatinine Lvl 3.10 0.50 - 1.40 12/24/2016 [facility] CHEM PANEL Sodium Lvl 139 135 - 145 12/24/2016 [facility] CHEM PANEL Potassium Lvl 5.2 3.5 - 5.1 12/24/2016 [facility] CHEM PANEL Chloride Lvl 108 95 - 109 12/24/2016 [facility] CHEM PANEL CO2 18 24 - 32 12/24/2016 [facility] CHEM PANEL Calcium Lvl 9.0 8.5 - 10.5 12/24/2016 [facility] CHEM PANEL Glucose Lvl 96 [...] should be multiplied by the estimated BMI. [facility] CHEM PANEL AGAP 18.2 10.0 - 20.0 12/24/2016 [facility] HEMATOLOGY Eosinophils # 0.6 0.0 - 0.5 12/24/2016 [facility] HEMATOLOGY Monocytes # 0.7 0.0 - 0.8 12/24/2016 [facility] Lymphocytes # 3.0 1.0 - 5.5 12/24/2016 [facility] HEMATOLOGY Segs-Bands # 4.6 1.5 - 8.1 12/24/2016 [facility] HEMATOLOGY Basophils 1.2 0.0 - 1.0 12/24/2016 [facility] HEMATOLOGY Segs 50.8 45.0 - 75.0 12/24/2016 [facility] HEMATOLOGY Basophils # 0.1 0.0 - 0.2 12/24/2016 [facility] HEMATOLOGY Lymphocytes 33.3 20.0 - 40.0 12/24/2016 [facility] HEMATOLOGY Eosinophils 6.7 0.0 - 4.0 12/24/2016 [facility] HEMATOLOGY Monocytes 8.0 2.0 - 12.0 12/24/2016 [facility] HEMATOLOGY RDW 18.8 11.5 - 14.5 12/24/2016 [facility] MCHC 33.4 32.0 - 36.0 12/24/2016 [facility] MPV 8.5 7.4 - 10.4 12/24/2016 [facility] Platelet 288 133 - 450 12/24/2016 [facility] Hgb 8.0 14.0 - 18.0 12/24/2016 [facility] RBC 2.84 4.70 - 6.10 12/24/2016 [facility] HEMATOLOGY WBC 9.1 3.7 - 10.4 12/24/2016 [facility] HEMATOLOGY MCH 28.1 27.0 - 31.0 12/24/2016 [facility] HEMATOLOGY MCV 84.2 80.0 - 94.0 12/24/2016 [facility] HEMATOLOGY Hct 23.9 42.0 - 54.0 12/24/2016 [facility] CHEM PANEL eGFR 25 12/23/2016 [...] should be multiplied by the estimated BMI. [facility] CHEM PANEL Potassium Lvl 5.3 3.5 - 5.1 12/23/2016 [facility] CHEM PANEL Chloride Lvl 108 95 - 109 12/23/2016 [facility] CHEM PANEL Calcium Lvl 9.3 8.5 - 10.5 12/23/2016 [facility] CHEM PANEL CO2 19 24 - 32 12/23/2016 [facility] CHEM PANEL BUN 65 7 - 22 12/23/2016 [facility] CHEM PANEL Glucose Lvl 92 70 - 99 12/23/2016 [facility] CHEM PANEL Sodium Lvl 137 135 - 145 12/23/2016 [facility] CHEM PANEL Creatinine Lvl 3.10 0.50 - 1.40 12/23/2016 [facility] CHEM PANEL AGAP 15.3 10.0 - 20.0 12/23/2016 [facility] HEMATOLOGY Lymphocytes 28.7 20.0 - 40.0 12/23/2016 [facility] HEMATOLOGY Segs 54.9 45.0 - 75.0 12/23/2016 [facility] HEMATOLOGY Basophils # 0.1 0.0 - 0.2 12/23/2016 [facility] HEMATOLOGY Eosinophils # 0.7 0.0 - 0.5 12/23/2016 [facility] HEMATOLOGY Monocytes # 0.8 0.0 - 0.8 12/23/2016 [facility] HEMATOLOGY Lymphocytes # 2.8 1.0 - 5.5 12/23/2016 [facility] HEMATOLOGY Segs-Bands # 5.4 1.5 - 8.1 12/23/2016 [facility] HEMATOLOGY Basophils 1.1 0.0 - 1.0 12/23/2016 [facility] HEMATOLOGY Eosinophils 6.9 0.0 - 4.0 12/23/2016 [facility] HEMATOLOGY Monocytes 8.4 2.0 - 12.0 12/23/2016 [facility] HEMATOLOGY MPV 8.4 7.4 - 10.4 12/23/2016 [facility] HEMATOLOGY Platelet 302 133 - 450 12/23/2016 [facility] HEMATOLOGY RDW 18.9 11.5 - 14.5 12/23/2016 [facility] HEMATOLOGY MCHC 33.8 32.0 - 36.0 12/23/2016 [facility] MCH 28.1 27.0 - 31.0 12/23/2016 [facility] HEMATOLOGY MCV 83.3 80.0 - 94.0 12/23/2016 [facility] HEMATOLOGY Hct 24.1 42.0 - 54.0 12/23/2016 [facility] HEMATOLOGY Hgb 8.1 14.0 - 18.0 12/23/2016 [facility] HEMATOLOGY RBC 2.89 4.70 - 6.10 12/23/2016 [facility] HEMATOLOGY WBC 9.9 3.7 - 10.4 12/23/2016 [facility] TOXICOLOGY Vanco Lvl 10.2 12/23/2016 [facility] URINE CHEM U Creatinine 34.00 12/22/2016 [facility] URINE CHEM U Sodium 51 12/22/2016 [facility] URINE CHEM U Eos 0-2 *ABN* (12/22/16 6:25 PM) None Seen 12/22/2016 [facility] CHEM PANEL Procalcitonin Lvl 0.24 0.00 - 0.10 12/22/2016 [facility] TOXICOLOGY Vanco Lvl 23.1 12/21/2016 [facility] TOXICOLOGY Vanco Tr TND 1200 12/20/2016 [facility] TOXICOLOGY Vanco Tr 31.6 12/20/2016 [facility] CHEM PANEL Magnesium Lvl 1.4 1.8 - 2.4 12/20/2016 [facility] URINE CHEM U Osmolality 257 300 - 800 12/20/2016 [facility] URINE CHEM U Creatinine <13.00 12/20/2016 [facility] URINE CHEM U Sodium 99 12/20/2016 [facility] URINE CHEM U Potassium 7.2 12/20/2016 [facility] CHEM PANEL Osmolality 301 280 - 300 12/19/2016 [facility] CHEM PANEL Phosphorus 5.1 2.5 - 4.5 12/18/2016 [facility] CHEM PANEL Magnesium Lvl 1.3 1.8 - 2.4 12/18/2016 [facility] CHEM PANEL Lactic Acid Lvl 0.7 0.5 - 2.2 12/18/2016 [facility] CHEM PANEL Procalcitonin Lvl 2.12 0.00 - 0.10 12/18/2016 Result Comment: Critical Result(s) jamil d to leeanna yadav at 12/18/2016 01:27 by [email or web address]. Read back OK. [facility] HEMATOLOGY Polychrom Moder ate *ABN* (12/18/16 12:16 AM) None Seen 12/18/2016 [facility] HEMATOLOGY Plt Morph Leeann l (12/18/16 12:16 AM) 12/18/2016 [facility] URINE AND STOOL UA Urobilinogen <=1.0 mg/dL 0.1 - 1.0 12/18/2016 [facility] URINE AND STOOL UA Color Ltyellow 12/18/2016 [facility] URINE AND STOOL UA Bili Negative *NA* (12/18/16 12:16 AM) Negative 12/18/2016 [facility] URINE AND STOOL UA WBC 92 0 - 5 12/18/2016 [facility] URINE AND STOOL UA Nitrite Negative (12/18/16 12:16 AM) Negative 12/18/2016 [facility] URINE AND STOOL UA Blood Small *ABN* (12/18/16 12:16 AM) Negative 12/18/2016 [facility] URINE AND STOOL UA Sq Epi Occasional /LPF Few /LPF 12/18/2016 [facility] URINE AND STOOL UA Leuk Est Large *ABN* (12/18/16 12:16 AM) Negative 12/18/2016 [facility] URINE AND STOOL UA RBC 6 0 - 2 12/18/2016 [facility] URINE AND STOOL UA Turbidity Slight *ABN* (12/18/16 12:16 AM) Clear 12/18/2016 [facility] URINE AND STOOL UA Protein 30 mg/dL Negative mg/dL 12/18/2016 [facility] URINE AND STOOL UA pH 8.0 5.0 - 8.0 12/18/2016 [facility] URINE AND STOOL UA Ketones Negative mg/dL Negative mg/dL 12/18/2016 [facility] URINE AND STOOL UA Glucose Negative mg/dL Negative mg/dL 12/18/2016 [facility] URINE AND STOOL UA Spec Grav 1.010 <=1.030 12/18/2016 [facility] BLOOD BANK RESULTS Antibody Scrn Negative (12/17/16 1:03 PM) 12/17/2016 [facility] BLOOD BANK RESULTS ABO/Rh A POS 12/17/2016 [facility] CARDIAC ENZYMES CK MB 0.5 0.5 - 3.6 12/17/2016 [facility] CARDIAC ENZYMES Troponin-I <0.02 0.00 - 0.40 12/17/2016 [facility] CHEM PANEL Phosphorus 4.6 2.5 - 4.5 12/17/2016 [facility] CHEM PANEL Lactic Acid Lvl 1.2 0.5 - 2.2 12/16/2016 [facility] CHEM PANEL Phosphorus 3.3 2.5 - 4.5 12/16/2016 [facility] TOXICOLOGY Tobra Lvl 10.6 12/14/2016 [facility] TOXICOLOGY Tobra Lvl 10.6 12/12/2016 [facility] IMMUNOLOGY Prealbumin 11.2 18.0 - 45.0 12/11/2016 [facility] CHEM PANEL Bili Total 0.4 0.2 - 1.3 12/09/2016 [facility] CHEM PANEL Alk Phos 136 39 - 136 12/09/2016 [facility] CHEM PANEL AST 15 0 - 37 12/09/2016 [facility] CHEM PANEL ALT 32 0 - 65 12/09/2016 [facility] CHEM PANEL Albumin Lvl 3.0 3.5 - 5.0 12/09/2016 [facility] CHEM PANEL Total Protein 7.8 6.4 - 8.4 12/09/2016 [facility] CHEM PANEL Globulin 4.8 2.7 - 4.2 12/09/2016 [facility] CHEM PANEL A/G Ratio 0.6 0.7 - 1.6 12/09/2016 [facility] CHEM PANEL B/C Ratio 14 6 - 25 12/09/2016 [facility] URINE AND STOOL UA Urobilinogen <=1.0 mg/dL 0.1 - 1.0 12/09/2016 [facility] URINE AND STOOL UA Sq Epi None Seen 12/09/2016 [facility] URINE AND STOOL UA Spec Grav 1.011 <=1.030 12/09/2016 [facility] URINE AND STOOL UA Ketones Negative mg/dL Negative mg/dL 12/09/2016 [facility] URINE AND STOOL UA Bili Negative *NA* (12/08/16 11:06 PM) Negative 12/09/2016 [facility] URINE AND STOOL UA Protein 100 mg/dL Negative mg/dL 12/09/2016 [facility] URINE AND STOOL UA Glucose Negative mg/dL Negative mg/dL 12/09/2016 [facility] URINE AND STOOL UA Blood Moderate *ABN* (12/08/16 11:06 PM) Negative 12/09/2016 [facility] URINE AND STOOL UA Turbidity Marked *ABN* (12/08/16 11:06 PM) Clear 12/09/2016 [facility] URINE AND STOOL UA pH 6.0 5.0 - 8.0 12/09/2016 [facility] URINE AND STOOL UA Bacteria Few /HPF None Seen /HPF 12/09/2016 [facility] URINE AND STOOL UA Amorph Michelle Moderate /HPF None Seen /HPF 12/09/2016 [facility] URINE AND STOOL UA WBC 94 0 - 5 12/09/2016 [facility] URINE AND STOOL UA Nitrite Positive *ABN* (12/08/16 11:06 PM) Negative 12/09/2016 [facility] URINE AND STOOL UA Leuk Est Large *ABN* (12/08/16 11:06 PM) Negative 12/09/2016 [facility] URINE AND STOOL UA RBC 20 0 - 2 12/09/2016 [facility] URINE AND STOOL UA Color Yellow (12/08/16 11:06 PM) Yellow 12/09/2016 [facility] VIRAL - SEROLOGY Influ A Negative (12/08/16 11:06 PM) Negative 12/09/2016 [facility] VIRAL - SEROLOGY Influ B Negative (12/08/16 11:06 PM) Negative 12/09/2016 [facility] CARDIAC ENZYMES CK MB Index 0.6 0.0 - 2.5 12/09/2016 [facility] CARDIAC ENZYMES Troponin-I <0.02 0.00 - 0.40 12/09/2016 [facility] CARDIAC ENZYMES Total CK 94 12 - 191 12/09/2016 [facility] CARDIAC ENZYMES CK MB 0.6 0.5 - 3.6 12/09/2016 [facility] CHEM PANEL Procalcitonin Lvl 0.18 0.00 - 0.10 12/09/2016 [facility] CHEM PANEL Lactic Acid Lvl 1.1 0.5 - 2.2 12/09/2016 [facility] CHEM PANEL Albumin Lvl 3.4 3.5 - 5.0 12/09/2016 [facility] CHEM PANEL Total Protein 9.4 6.4 - 8.4 12/09/2016 [facility] CHEM PANEL B/C Ratio 13 6 - 25 12/09/2016 [facility] CHEM PANEL A/G Ratio 0.6 0.7 - 1.6 12/09/2016 [facility] CHEM PANEL Globulin 6.0 2.7 - 4.2 12/09/2016 [facility] CHEM PANEL ALT 41 0 - 65 12/09/2016 [facility] CHEM PANEL Alk Phos 152 39 - 136 12/09/2016 [facility] CHEM PANEL AST 14 0 - 37 12/09/2016 [facility] CHEM PANEL Bili Total 0.4 0.2 - 1.3 12/09/2016 [facility] HEMATOLOGY PTT 32.3 22.9 - 35.8 12/09/2016 [facility] HEMATOLOGY PT 15.1 12.0 - 14.7 12/09/2016 [facility] HEMATOLOGY INR 1.17 0.85 - 1.17 12/09/2016 [facility] ANEMIA STUDY Ferritin Lvl 442 22 - 275 11/28/2016 [facility] CHEM PANEL A/G Ratio 0.5 0.7 - 1.6 11/28/2016 [facility] CHEM PANEL AGAP 14.8 10.0 - 20.0 11/28/2016 [facility] CHEM PANEL B/C Ratio 23 6 - 25 11/28/2016 [facility] CHEM PANEL Globulin 5.6 2.7 - 4.2 11/28/2016 [facility] CHEM PANEL eGFR 54 11/28/2016 Result Comment: [...] should be multiplied by the estimated BMI. [facility] CHEM PANEL ALT 96 0 - 65 11/28/2016 [facility] CHEM PANEL AST 86 0 - 37 11/28/2016 [facility] CHEM PANEL Albumin Lvl 2.9 3.5 - 5.0 11/28/2016 [facility] CHEM PANEL Alk Phos 142 39 - 136 11/28/2016 [facility] CHEM PANEL Bili Total 0.4 0.2 - 1.3 11/28/2016 [facility] CHEM PANEL Total Protein 8.5 6.4 - 8.4 11/28/2016 [facility] CHEM PANEL Calcium Lvl 9.3 8.5 - 10.5 11/28/2016 [facility] CHEM PANEL CO2 19 24 - 32 11/28/2016 [facility] CHEM PANEL Chloride Lvl 109 95 - 109 11/28/2016 [facility] CHEM PANEL Potassium Lvl 4.8 3.5 - 5.1 11/28/2016 [facility] CHEM PANEL Sodium Lvl 138 135 - 145 11/28/2016 [facility] CHEM PANEL Creatinine Lvl 1.67 0.50 - 1.40 11/28/2016 [facility] CHEM PANEL BUN 39 7 - 22 11/28/2016 [facility] CHEM PANEL Glucose Lvl 92 70 - 99 11/28/2016 [facility] CHEM PANEL Magnesium Lvl 1.5 1.8 - 2.4 11/28/2016 [facility] CHEM PANEL Phosphorus 4.0 2.5 - 4.5 11/28/2016 [facility] HEMATOLOGY RDW 22.2 11.5 - 14.5 11/28/2016 [facility] HEMATOLOGY MPV 9.2 7.4 - 10.4 11/28/2016 [facility] HEMATOLOGY Platelet 252 133 - 450 11/28/2016 [facility] HEMATOLOGY WBC 7.5 3.7 - 10.4 11/28/2016 [facility] HEMATOLOGY MCHC 32.6 32.0 - 36.0 11/28/2016 [facility] HEMATOLOGY MCH 27.1 27.0 - 31.0 11/28/2016 [facility] HEMATOLOGY RBC 3.78 4.70 - 6.10 11/28/2016 [facility] HEMATOLOGY Hgb 10.2 14.0 - 18.0 11/28/2016 [facility] HEMATOLOGY MCV 83.2 80.0 - 94.0 11/28/2016 [facility] HEMATOLOGY Hct 31.4 42.0 - 54.0 11/28/2016 [facility] HEMATOLOGY Eosinophils 5.4 0.0 - 4.0 11/28/2016 [facility] HEMATOLOGY Segs 52.4 45.0 - 75.0 11/28/2016 [facility] HEMATOLOGY Monocytes 12.0 2.0 - 12.0 11/28/2016 [facility] HEMATOLOGY Lymphocytes 29.6 20.0 - 40.0 11/28/2016 [facility] HEMATOLOGY Basophils 0.6 0.0 - 1.0 11/28/2016 [facility] HEMATOLOGY Lymphocytes # 2.2 1.0 - 5.5 11/28/2016 [facility] HEMATOLOGY Segs-Bands # 3.9 1.5 - 8.1 11/28/2016 [facility] HEMATOLOGY Eosinophils # 0.4 0.0 - 0.5 11/28/2016 [facility] HEMATOLOGY Monocytes # 0.9 0.0 - 0.8 11/28/2016 [facility] HEMATOLOGY Anisocyte 1+ *ABN* (11/28/16 2:53 AM) None Seen 11/28/2016 [facility] CARDIAC ENZYMES Total CK 41 12 - 191 11/27/2016 [facility] URINE CHEM U Eos None Seen (11/27/16 3:22 PM) None Seen 11/27/2016 [facility] URINE CHEM U Osmolality 419 300 - 800 11/27/2016 [facility] URINE CHEM U Prot/Creat 3.5 11/27/2016 [facility] URINE CHEM U Protein 122.2 11/27/2016 [facility] URINE CHEM U Creatinine 35.10 11/27/2016 [facility] URINE CHEM U Potassium 32.7 11/27/2016 [facility] URINE CHEM U Chloride 115 11/27/2016 [facility] URINE CHEM U Sodium 106 11/27/2016 [facility] CHEM PANEL BUN 38 7 - 22 11/27/2016 [facility] CHEM PANEL Glucose Lvl 82 70 - 99 11/27/2016 [facility] CHEM PANEL eGFR 51 11/27/2016 Result Comment: [...] should be multiplied by the estimated BMI. [facility] CHEM PANEL Sodium Lvl 138 135 - 145 11/27/2016 [facility] CHEM PANEL Calcium Lvl 9.6 8.5 - 10.5 11/27/2016 [facility] CHEM PANEL CO2 19 24 - 32 11/27/2016 [facility] CHEM PANEL Chloride Lvl 108 95 - 109 11/27/2016 [facility] CHEM PANEL Potassium Lvl 5.4 3.5 - 5.1 11/27/2016 [facility] CHEM PANEL Creatinine Lvl 1.74 0.50 - 1.40 11/27/2016 [facility] CHEM PANEL AGAP 16.4 10.0 - 20.0 11/27/2016 [facility] HEMATOLOGY MPV 9.2 7.4 - 10.4 11/27/2016 [facility] HEMATOLOGY RBC 3.81 4.70 - 6.10 11/27/2016 [facility] HEMATOLOGY Hct 31.9 42.0 - 54.0 11/27/2016 [facility] HEMATOLOGY Hgb 10.2 14.0 - 18.0 11/27/2016 [facility] HEMATOLOGY MCH 26.8 27.0 - 31.0 11/27/2016 [facility] HEMATOLOGY MCV 83.8 80.0 - 94.0 11/27/2016 [facility] HEMATOLOGY Platelet 235 133 - 450 11/27/2016 [facility] HEMATOLOGY RDW 22.4 11.5 - 14.5 11/27/2016 [facility] HEMATOLOGY MCHC 31.9 32.0 - 36.0 11/27/2016 [facility] HEMATOLOGY WBC 7.8 3.7 - 10.4 11/27/2016 [facility] HEMATOLOGY Anisocyte 1+ *ABN* (11/27/16 2:49 AM) None Seen 11/27/2016 [facility] HEMATOLOGY Monocytes # 0.8 0.0 - 0.8 11/27/2016 [facility] HEMATOLOGY Eosinophils # 0.6 0.0 - 0.5 11/27/2016 [facility] HEMATOLOGY Basophils # 0.1 0.0 - 0.2 11/27/2016 [facility] HEMATOLOGY Lymphocytes 27.3 20.0 - 40.0 11/27/2016 [facility] HEMATOLOGY Eosinophils 7.1 0.0 - 4.0 11/27/2016 [facility] HEMATOLOGY Monocytes 10.4 2.0 - 12.0 11/27/2016 [facility] HEMATOLOGY Basophils 0.9 0.0 - 1.0 11/27/2016 [facility] HEMATOLOGY Lymphocytes # 2.1 1.0 - 5.5 11/27/2016 [facility] HEMATOLOGY Segs-Bands # 4.2 1.5 - 8.1 11/27/2016 [facility] HEMATOLOGY Segs 54.3 45.0 - 75.0 11/27/2016 [facility] IMMUNOLOGY Hep B Core IgM Negat pavel *NA* (11/27/16 2:49 AM) Negative 11/27/2016 [facility] IMMUNOLOGY Hep Bs Ag Negat pavel *NA* (11/27/16 2:49 AM) Negative 11/27/2016 [facility] IMMUNOLOGY Hep C Ab Posit pavel *ABN* (11/27/16 2:49 AM) 11/27/2016 [facility] IMMUNOLOGY Hep A IgM Negat pavel *NA* (11/27/16 2:49 AM) Negative 11/27/2016 [facility] CHEM PANEL eGFR 61 11/26/2016 Result Comment: [...] should be multiplied by the estimated BMI. [facility] CHEM PANEL Potassium Lvl 5.1 3.5 - 5.1 11/26/2016 [facility] CHEM PANEL Sodium Lvl 142 135 - 145 11/26/2016 [facility] CHEM PANEL Chloride Lvl 109 95 - 109 11/26/2016 [facility] CHEM PANEL AGAP 15.1 10.0 - 20.0 11/26/2016 [facility] CHEM PANEL Calcium Lvl 9.0 8.5 - 10.5 11/26/2016 [facility] CHEM PANEL CO2 23 24 - 32 11/26/2016 [facility] CHEM PANEL Glucose Lvl 94 70 - 99 11/26/2016 [facility] CHEM PANEL BUN 35 7 - 22 11/26/2016 [facility] CHEM PANEL Creatinine Lvl 1.50 0.50 - 1.40 11/26/2016 [facility] HEMATOLOGY Eosinophils 4.7 0.0 - 4.0 11/24/2016 [facility] HEMATOLOGY Lymphocytes # 2.4 1.0 - 5.5 11/24/2016 [facility] HEMATOLOGY Basophils 0.8 0.0 - 1.0 11/24/2016 [facility] HEMATOLOGY Monocytes 9.6 2.0 - 12.0 11/24/2016 [facility] HEMATOLOGY Segs-Bands # 4.5 1.5 - 8.1 11/24/2016 [facility] HEMATOLOGY Eosinophils # 0.4 0.0 - 0.5 11/24/2016 [facility] HEMATOLOGY Monocytes # 0.8 0.0 - 0.8 11/24/2016 [facility] HEMATOLOGY Basophils # 0.1 0.0 - 0.2 11/24/2016 [facility] HEMATOLOGY Anisocyte 1+ *ABN* (11/24/16 3:30 AM) None Seen 11/24/2016 [facility] HEMATOLOGY Lymphocytes 29.6 20.0 - 40.0 11/24/2016 [facility] HEMATOLOGY Segs 55.3 45.0 - 75.0 11/24/2016 [facility] HEMATOLOGY RBC 3.32 4.70 - 6.10 11/24/2016 [facility] HEMATOLOGY WBC 8.1 3.7 - 10.4 11/24/2016 [facility] HEMATOLOGY Hgb 8.9 14.0 - 18.0 11/24/2016 [facility] HEMATOLOGY MCH 26.9 27.0 - 31.0 11/24/2016 [facility] HEMATOLOGY Hct 27.9 42.0 - 54.0 11/24/2016 [facility] HEMATOLOGY MCHC 32.0 32.0 - 36.0 11/24/2016 [facility] HEMATOLOGY MCV 84.1 80.0 - 94.0 11/24/2016 [facility] HEMATOLOGY RDW 22.6 11.5 - 14.5 11/24/2016 [facility] HEMATOLOGY Platelet 215 133 - 450 11/24/2016 [facility] HEMATOLOGY MPV 9.1 7.4 - 10.4 11/24/2016 [facility] HEMATOLOGY Basophils # 0.1 0.0 - 0.2 11/23/2016 [facility] URINE AND STOOL UA Leuk Est Large *ABN* (11/21/16 8:50 AM) Negative 11/21/2016 [facility] URINE AND STOOL UA Nitrite Negative (11/21/16 8:50 AM) Negative 11/21/2016 [facility] URINE AND STOOL UA Hyph Yeast Occasional *ABN* (11/21/16 8:50 AM) None Seen 11/21/2016 [facility] URINE AND STOOL UA [place] Yeast Occasional /HPF None Seen /HPF 11/21/2016 [facility] URINE AND STOOL UA WBC >182 0 - 5 11/21/2016 [facility] URINE AND STOOL UA Mucus Few /LPF None Seen /LPF 11/21/2016 [facility] URINE AND STOOL UA RBC 153 0 - 2 11/21/2016 [facility] URINE AND STOOL UA Blood Moderate *ABN* (11/21/16 8:50 AM) Negative 11/21/2016 [facility] URINE AND STOOL UA Bili Negative *NA* (11/21/16 8:50 AM) Negative 11/21/2016 [facility] URINE AND STOOL UA Sq Epi None Seen 11/21/2016 [facility] URINE AND STOOL UA Urobilinogen <=1.0 mg/dL 0.1 - 1.0 11/21/2016 [facility] URINE AND STOOL UA Color Yellow *NA* (11/21/16 8:50 AM) Yellow 11/21/2016 [facility] URINE AND STOOL UA Ketones Negative mg/dL Negative mg/dL 11/21/2016 [facility] URINE AND STOOL UA pH 5.5 5.0 - 8.0 11/21/2016 [facility] URINE AND STOOL UA Glucose Negative mg/dL Negative mg/dL 11/21/2016 [facility] URINE AND STOOL UA Protein 70 mg/dL Negative mg/dL 11/21/2016 [facility] URINE AND STOOL UA Turbidity Slight *ABN* (11/21/16 8:50 AM) Clear 11/21/2016 [facility] URINE AND STOOL UA Spec Grav 1.012 <=1.030 11/21/2016 [facility] URINE CHEM U Osmolality 442 300 - 800 11/21/2016 [facility] URINE CHEM U Creatinine 42.90 11/21/2016 [facility] URINE CHEM U Sodium 110 11/21/2016 [facility] URINE CHEM U Prot/Creat 2.3 11/21/2016 [facility] URINE CHEM U Protein 97.5 11/21/2016 [facility] URINE CHEM U Creatinine 42.70 11/21/2016 [facility] CHEM PANEL Phosphorus 3.6 2.5 - 4.5 11/19/2016 [facility] CHEM PANEL Magnesium Lvl 1.8 1.8 - 2.4 11/19/2016 [facility] CHEM PANEL Magnesium Lvl 1.5 1.8 - 2.4 11/18/2016 [facility] CHEM PANEL Phosphorus 2.6 2.5 - 4.5 11/18/2016 [facility] HEMATOLOGY Sed Rate 99 0 - 15 11/14/2016 [facility] IMMUNOLOGY Prealbumin 37.3 18.0 - 45.0 11/14/2016 [facility] CARDIAC ENZYMES Total CK 25 12 - 191 11/13/2016 [facility] CHEM PANEL Bili Total 0.2 0.2 - 1.3 11/13/2016 [facility] CHEM PANEL Bili Indirect 0.1 0.0 - 1.0 11/13/2016 [facility] CHEM PANEL Bili Direct 0.1 0.0 - 0.3 11/13/2016 [facility] CHEM PANEL Albumin Lvl 2.3 3.5 - 5.0 11/13/2016 [facility] CHEM PANEL Total Protein 7.9 6.4 - 8.4 11/13/2016 [facility] CHEM PANEL Globulin 5.6 2.7 - 4.2 11/13/2016 [facility] CHEM PANEL A/G Ratio 0.4 0.7 - 1.6 11/13/2016 [facility] CHEM PANEL ALT 13 0 - 65 11/13/2016 [facility] CHEM PANEL AST 11 0 - 37 11/13/2016 [facility] CHEM PANEL Alk Phos 109 39 - 136 11/13/2016 [facility] TOXICOLOGY Vanco Lvl 6.4 11/13/2016 [facility] MOLECULAR DIAGNOSTIC C difficile DNA Positive 1 *ABN* (11/12/16 6:06 AM) Negative 11/12/2016 Result Comment: "Significant Findings called to Gracie RICHARDSON on 11/12/2016 at 12:59 by ERIC.Read Back OK." [facility] HEMATOLOGY Microcyte 1+ *ABN* (11/12/16 4:34 AM) None Seen 11/12/2016 [facility] TOXICOLOGY Vanco Lvl 13.0 11/10/2016 [facility] HEMATOLOGY Microcyte 1+ *ABN* (11/09/16 11:30 AM) None Seen 11/09/2016 [facility] BLOOD BANK RESULTS ABO/Rh A POS 11/09/2016 [facility] BLOOD BANK RESULTS Antibody Scrn Negative (11/09/16 11:00 AM) 11/09/2016 [facility] BLOOD BANK RESULTS RBC product Product available (11/09/16 10:39 AM) 11/09/2016 [facility] TOXICOLOGY Vanco Tr 33.6 11/09/2016 [facility] TOXICOLOGY Vanco Tr TND 0330 11/09/2016 [facility] HEMATOLOGY Retic Auto 1.6 0.5 - 1.5 11/09/2016 [facility] HEMATOLOGY Microcyte 1+ *ABN* (11/09/16 4:27 AM) None Seen 11/09/2016 [facility] ANEMIA STUDY TIBC 163 228 - 428 11/08/2016 [facility] ANEMIA STUDY Iron 12 45 - 160 11/08/2016 [facility] ANEMIA STUDY % Satur Fe 7 12 - 57 11/08/2016 [facility] ANEMIA STUDY UIBC 151 110 - 370 11/08/2016 [facility] ANEMIA STUDY Ferritin Lvl 295 22 - 275 11/08/2016 [facility] HEMATOLOGY Retic Auto 1.9 0.5 - 1.5 11/08/2016 [facility] CHEM PANEL Lactic Acid Lvl 0.7 0.5 - 2.2 11/07/2016 [facility] CHEM PANEL Lactic Acid Lvl 0.4 0.5 - 2.2 11/07/2016 [facility] URINE AND STOOL UA Turbidity Cloudy *ABN* (11/07/16 3:53 PM) Clear 11/07/2016 [facility] URINE AND STOOL UA Color Yellow *NA* (11/07/16 3:53 PM) Yellow 11/07/2016 [facility] URINE AND STOOL UA Protein 100 mg/dL Negative mg/dL 11/07/2016 [facility] URINE AND STOOL UA pH 6.5 5.0 - 8.0 11/07/2016 [facility] URINE AND STOOL UA Spec Grav 1.020 <=1.030 11/07/2016 [facility] URINE AND STOOL UA Urobilinogen 0.2 0.1 - 1.0 11/07/2016 [facility] URINE AND STOOL UA Nitrite Negative (11/07/16 3:53 PM) Negative 11/07/2016 [facility] URINE AND STOOL UA Bili Negative *NA* (11/07/16 3:53 PM) Negative 11/07/2016 [facility] URINE AND STOOL UA Blood Large *ABN* (11/07/16 3:53 PM) Negative 11/07/2016 [facility] URINE AND STOOL UA Sq Epi None Seen (11/07/16 3:53 PM) Few 11/07/2016 [facility] URINE AND STOOL UA WBC >100 /HPF None Seen /HPF 11/07/2016 [facility] URINE AND STOOL UA RBC 6-10 /HPF 0 - 2 11/07/2016 [facility] URINE AND STOOL UA Leuk Est Large *ABN* (11/07/16 3:53 PM) Negative 11/07/2016 [facility] URINE AND STOOL UA Mucus None Seen (11/07/16 3:53 PM) None Seen 11/07/2016 [facility] URINE AND STOOL UA Bacteria Moderate /HPF None Seen /HPF 11/07/2016 [facility] URINE AND STOOL UA Ketones Negative *NA* (11/07/16 3:53 PM) Negative 11/07/2016 [facility] URINE AND STOOL UA Glucose Negative (11/07/16 3:53 PM) Negative 11/07/2016 [facility] CHEM PANEL Lactic Acid WB 3.1 0.5 - 2.2 11/07/2016 [facility] CARDIAC ENZYMES CK MB Index 0.7 0.0 - 2.5 11/07/2016 [facility] CARDIAC ENZYMES Troponin-I <0.02 0.00 - 0.40 11/07/2016 [facility] CARDIAC ENZYMES CK MB 0.5 0.5 - 3.6 11/07/2016 [facility] CARDIAC ENZYMES Total CK 72 12 - 191 11/07/2016 [facility] CHEM PANEL Procalcitonin Lvl 0.47 0.00 - 0.10 11/07/2016 [facility] CHEM PANEL Bili Total 0.2 0.2 - 1.3 11/07/2016 [facility] CHEM PANEL Alk Phos 134 39 - 136 11/07/2016 [facility] CHEM PANEL ALT 10 0 - 65 11/07/2016 [facility] CHEM PANEL AST 13 0 - 37 11/07/2016 [facility] CHEM PANEL Total Protein 10.5 6.4 - 8.4 11/07/2016 [facility] CHEM PANEL Albumin Lvl 2.9 3.5 - 5.0 11/07/2016 [facility] CHEM PANEL B/C Ratio 10 6 - 25 11/07/2016 [facility] CHEM PANEL A/G Ratio 0.4 0.7 - 1.6 11/07/2016 [facility] CHEM PANEL Globulin 7.6 2.7 - 4.2 11/07/2016 [facility] HEMATOLOGY PTT 36.4 22.9 - 35.8 11/07/2016 [facility] HEMATOLOGY INR 1.18 0.85 - 1.17 11/07/2016 [facility] HEMATOLOGY PT 15.2 12.0 - 14.7 11/07/2016 [facility] IMMUNOLOGY C-REACTIVE PROTEIN 163.0 <=2.9 mg/L 11/07/2016 [facility] CHEM PANEL eGFR 49 10/25/2016 Result Comment: [...] should be multiplied by the estimated BMI. [facility] CHEM PANEL Chloride Lvl 125 95 - 109 10/25/2016 [facility] CHEM PANEL CO2 12 24 - 32 10/25/2016 [facility] CHEM PANEL Potassium Lvl 3.7 3.5 - 5.1 10/25/2016 [facility] CHEM PANEL Sodium Lvl 147 135 - 145 10/25/2016 [facility] CHEM PANEL Creatinine Lvl 1.80 0.50 - 1.40 10/25/2016 [facility] CHEM PANEL BUN 22 7 - 22 10/25/2016 [facility] CHEM PANEL Glucose Lvl 67 70 - 99 10/25/2016 [facility] CHEM PANEL Calcium Lvl 5.7 8.5 - 10.5 10/25/2016 Result Comment: Critical Result(s) loulou montanez at 10/25/2016 07:18 by tootie. Read back OK. [facility] CHEM PANEL AGAP 13.7 10.0 - 20.0 10/25/2016 [facility] HEMATOLOGY PT 16.2 12.0 - 14.7 10/24/2016 [facility] HEMATOLOGY INR 1.27 0.85 - 1.17 10/24/2016 [facility] CHEM PANEL eGFR 30 10/24/2016 Result Comment: [...] should be multiplied by the estimated BMI. [facility] CHEM PANEL AGAP 14.5 10.0 - 20.0 10/24/2016 [facility] CHEM PANEL Potassium Lvl 4.5 3.5 - 5.1 10/24/2016 [facility] CHEM PANEL Chloride Lvl 111 95 - 109 10/24/2016 [facility] CHEM PANEL CO2 21 24 - 32 10/24/2016 [facility] CHEM PANEL Glucose Lvl 117 70 - 99 10/24/2016 [facility] CHEM PANEL BUN 31 7 - 22 10/24/2016 [facility] CHEM PANEL Creatinine Lvl 2.70 0.50 - 1.40 10/24/2016 [facility] CHEM PANEL Sodium Lvl 142 135 - 145 10/24/2016 [facility] CHEM PANEL Calcium Lvl 7.8 8.5 - 10.5 10/24/2016 [facility] ELECTROLYTES AGAP 16.7 10.0 - 20.0 10/24/2016 [facility] ELECTROLYTES eGFR 30 10/24/2016 Result Comment: The [...] should be multiplied by the estimated BMI. [facility] ELECTROLYTES Calcium Lvl 8.1 8.5 - 10.5 10/24/2016 [facility] ELECTROLYTES CO2 17 24 - 32 10/24/2016 [facility] ELECTROLYTES Potassium Lvl 5.7 3.5 - 5.1 10/24/2016 [facility] ELECTROLYTES Chloride Lvl 113 95 - 109 10/24/2016 [facility] ELECTROLYTES Sodium Lvl 141 135 - 145 10/24/2016 [facility] ELECTROLYTES Creatinine Lvl 2.7 0 0.50 - 1.40 10/24/2016 [facility] ELECTROLYTES BUN 36 7 - 22 10/24/2016 [facility] ELECTROLYTES Glucose Lvl 83 70 - 99 10/24/2016 [facility] Platelet 453 133 - 450 10/24/2016 [facility] RDW 20.5 11.5 - 14.5 10/24/2016 [facility] [place] MCHC 32.6 32.0 - 36.0 10/24/2016 [facility] [place] MCH 24.7 27.0 - 31.0 10/24/2016 [facility] [place] MPV 7.9 7.4 - 10.4 10/24/2016 [facility] [place] MCV 75.8 80.0 - 94.0 10/24/2016 [facility] [place] Hct 23.3 42.0 - 54.0 10/24/2016 [facility] [place] Hgb 7.6 14.0 - 18.0 10/24/2016 [facility] RBC 3.08 4.70 - 6.10 10/24/2016 [facility] [place] WBC 7.3 3.7 - 10.4 10/24/2016 [facility] CHEM PANEL Vitamin D, 25-OH, Total 1 3 30 - 100 10/24/2016 [facility] CHEM PANEL Osmolality 315 280 - 300 10/24/2016 [facility] URINE CHEM U Osmolality 228 300 - 800 10/24/2016 [facility] HEMATOLOGY Monocytes 8.7 2.0 - 12.0 10/23/2016 [facility] HEMATOLOGY Segs 62.0 45.0 - 75.0 10/23/2016 [facility] Lymphocytes 26.0 20.0 - 40.0 10/23/2016 [facility] [place] Segs-Bands # 6.1 1.5 - 8.1 10/23/2016 [facility] [place] Lymphocytes # 2.5 1.0 - 5.5 10/23/2016 [facility] [place] Monocytes # 0.9 0.0 - 0.8 10/23/2016 [facility] HEMATOLOGY Eosinophils # 0.3 0.0 - 0.5 10/23/2016 [facility] [place] Basophils # 0.1 0.0 - 0.2 10/23/2016 [facility] [place] Anisocyte 1+ *ABN* (10/23/16 5:11 AM) None Seen 10/23/2016 [facility] [place] Basophils 0.6 0.0 - 1.0 10/23/2016 [facility] Eosinophils 2.7 0.0 - 4.0 10/23/2016 [facility] [place] Platelet 511 133 - 450 10/23/2016 [facility] [place] MPV 8.0 7.4 - 10.4 10/23/2016 [facility] [place] MCH 24.1 27.0 - 31.0 10/23/2016 [facility] [place] MCHC 31.6 32.0 - 36.0 10/23/2016 [facility] [place] RDW 20.7 11.5 - 14.5 10/23/2016 [facility] [place] Hct 24.0 42.0 - 54.0 10/23/2016 [facility] [place] MCV 76.1 80.0 - 94.0 10/23/2016 [facility] [place] WBC 9.8 3.7 - 10.4 10/23/2016 [facility] [place] RBC 3.16 4.70 - 6.10 10/23/2016 [facility] [place] Hgb 7.6 14.0 - 18.0 10/23/2016 [facility] CHEM PANEL Phosphorus 4.2 2.5 - 4.5 10/03/[facility] A/G Ratio 0.6 0.7 - 1.6 10/03/2016 [facility] CHEM PANEL ASPARTATE TRANSAMINASE 21 0 - 37 10/03/2016 [facility] CHEM PANEL Globulin 5.0 2.7 - 4.2 10/03/2016 [facility] CHEM PANEL Bili Total 0.2 0.2 - 1.3 10/03/2016 [facility] CHEM PANEL AGAP 15.4 10.0 - 20.0 10/03/2016 [facility] CHEM PANEL B/C Ratio 33 6 - 25 10/03/2016 [facility] CHEM PANEL Calcium Lvl 8.7 8.5 - 10.5 10/03/2016 [facility] Potassium Lvl 5.4 3.5 - 5.1 10/03/2016 [facility] CHEM PANEL CO2 23 24 - 32 10/03/2016 [facility] Sodium Lvl 140 135 - 145 10/03/2016 [facility] CHEM PANEL eGFR 52 10/03/2016 Result [...] should be multiplied by the estimated [facility]. [facility] Total Protein 8.2 6.4 - 8.4 10/03/2016 [facility] Chloride Lvl 107 95 - 109 10/03/2016 [facility] CHEM PANEL Creatinine Lvl 1.71 0.50 - 1.40 10/03/2016 [facility] CHEM PANEL BUN 57 7 - 22 10/03/2016 [facility] CHEM PANEL Glucose Lvl 99 70 - 99 10/03/2016 [facility] CHEM PANEL Alk Phos 139 39 - 136 10/03/2016 [facility] CHEM PANEL Albumin Lvl 3.2 3.5 - 5.0 10/03/2016 [facility] CHEM PANEL ALANINE AMINOTRANSFERASE 28 0 - 65 10/03/2016 [facility] CHEM PANEL Magnesium Lvl 1.5 1.8 - 2.4 10/03/2016 [facility] HEMATOLOGY MCV 77.0 80.0 - 94.0 10/03/2016 [facility] HEMATOLOGY Hct 30.3 42.0 - 54.0 10/03/2016 [facility] HEMATOLOGY Hgb 9.8 14.0 - 18.0 10/03/2016 [facility] HEMATOLOGY RBC X 10x6 3.94 4.70 - 6.10 10/03/2016 [facility] WBC X 10x3 9.9 3.7 - 10.4 10/03/2016 [facility] MCHC 32.4 32.0 - 36.0 10/03/2016 [facility] MCH 25.0 27.0 - 31.0 10/03/2016 [facility] Platelet 362 133 - 450 10/03/2016 [facility] RDW 19.7 11.5 - 14.5 10/03/2016 [facility] MPV 8.0 7.4 - 10.4 10/03/2016 [facility] Segs 47.4 45.0 - 75.0 10/03/2016 [facility] Lymphocytes 37.9 20.0 - 40.0 10/03/2016 [facility] Microcyte 1+ *ABN* (10/03/16 1:00 AM) None Seen 10/03/2016 [facility] HEMATOLOGY Eosinophils 3.8 0.0 - 4.0 10/03/2016 [facility] HEMATOLOGY Basophils 0.8 0.0 - 1.0 10/03/2016 [facility] Lymphocytes # 3.8 1.0 - 5.5 10/03/2016 [facility] Segs-Bands # 4.7 1.5 - 8.1 10/03/2016 [facility] Basophils # 0.1 0.0 - 0.2 10/03/2016 [facility] Monocytes # 1.0 0.0 - 0.8 10/03/2016 [facility] Eosinophils # 0.4 0.0 - 0.5 10/03/2016 [facility] Monocytes 10.1 2.0 - 12.0 10/03/2016 [facility] TOXICOLOGY Vanco Tr 15.9 10/03/2016 [facility] TOXICOLOGY Vanco Tr TND 0030 10/03/2016 [facility] CHEM PANEL Phosphorus 4.2 2.5 - 4.5 10/02/2016 [facility] CHEM PANEL eGFR 61 10/02/2016 Result [...] should be multiplied by the estimated BMI. [facility] CHEM PANEL Sodium Lvl 140 135 - 145 10/02/2016 [facility] CHEM PANEL Potassium Lvl 5.3 3.5 - 5.1 10/02/2016 [facility] CHEM PANEL Chloride Lvl 107 95 - 109 10/02/2016 [facility] CHEM PANEL CO2 25 24 - 32 10/02/2016 [facility] CHEM PANEL Calcium Lvl 8.5 8.5 - 10.5 [facility] Albumin Lvl 2.8 3.5 - 5.0 10/02/2016 [facility] CHEM PANEL Glucose Lvl 98 70 - 99 10/02/2016 [facility] CHEM PANEL ALANINE AMINOTRANSFERASE 25 0 - 65 10/02/2016 [facility] CHEM PANEL Alk Phos 138 39 - 136 10/02/2016 [facility] CHEM PANEL BUN 39 7 - 22 10/02/2016 [facility] CHEM PANEL Creatinine Lvl 1.51 0.50 - 1.40 10/02/2016 [facility] CHEM PANEL ASPARTATE TRANSAMINASE 22 0 - 37 [facility] Bili Total 0.2 0.2 - 1.3 [facility]/02[facility] Total Protein 8.0 6.4 - 8.4 10/02/2016 [facility] CHEM PANEL Globulin 5.2 2.7 - 4.2 10/02/2016 [facility] CHEM PANEL A/G Ratio 0.5 0.7 - 1.6 10/02/2016 [facility] CHEM PANEL AGAP 13.3 10.0 - 20.0 10/02/2016 [facility] CHEM PANEL B/C Ratio 26 6 - 25 10/02[facility] Magnesium Lvl 1.6 1.8 - 2.4 10/02/2016 [facility] HEMATOLOGY Hct 28.0 42.0 - 54.0 10/02/2016 [facility] MCH 24.9 27.0 - 31.0 10/02/2016 [facility] MCHC 32.8 32.0 - 36.0 10/02/2016 [facility] MCV 76.0 80.0 - 94.0 10/02/2016 [facility] HEMATOLOGY RDW 19.7 11.5 - 14.5 10/02/2016 [facility] HEMATOLOGY Platelet 351 133 - 450 10/02/2016 [facility] HEMATOLOGY WBC X 10x3 7.1 3.7 - 10.4 10/02/2016 [facility] HEMATOLOGY RBC X 10x6 3.68 4.70 - 6.10 10/02/2016 [facility] Hgb 9.2 14.0 - 18.0 10/02/2016 [facility] MPV 7.8 7.4 - 10.4 10/02/2016 [facility] HEMATOLOGY Eosinophils 4.9 0.0 - 4.0 10/02/2016 [facility] HEMATOLOGY Segs-Bands # 3.3 1.5 - 8.1 10/02/2016 [facility] HEMATOLOGY Basophils 0.7 0.0 - 1.0 10/02/2016 [facility] HEMATOLOGY Segs 46.1 45.0 - 75.0 10/02/2016 [facility] Lymphocytes 33.6 20.0 - 40.0 10/02/2016 [facility] HEMATOLOGY Monocytes 14.7 2.0 - 12.0 10/02/2016 [facility] Lymphocytes # 2.4 1.0 - 5.5 10/02/2016 [facility] HEMATOLOGY Eosinophils # 0.3 0.0 - 0.5 10/02/2016 [facility] HEMATOLOGY Monocytes # 1.0 0.0 - 0.8 10/02/2016 [facility] HEMATOLOGY Microcyte 1+ *ABN* (10/02/16 4:01 AM) None Seen 10/02/2016 [facility] TOXICOLOGY Vanco Tr TND 0000 10/01/2016 [facility] TOXICOLOGY Vanco Tr 15.7 10/01/2016 [facility] TOXICOLOGY Vanco Lvl 23.0 09/30/2016 [facility] CHEM PANEL Calcium Lvl 8.9 8.5 - 10.5 09/30/2016 [facility] CHEM PANEL AGAP 14.3 10.0 - 20.0 09/30/2016 [facility] CHEM PANEL Sodium Lvl 140 135 - 145 09/30/2016 [facility] CHEM PANEL Chloride Lvl 105 95 - 109 09/30/2016 [facility] CHEM PANEL CO2 26 24 - 32 09/30/2016 [facility] CHEM PANEL Potassium Lvl 5.3 3.5 - 5.1 09/30/2016 [facility] CHEM PANEL eGFR 75 09/30/2016 Result [...] should be multiplied by the estimated BMI. [facility] CHEM PANEL Creatinine Lvl 1.27 0.50 - 1.40 09/30/2016 [facility] CHEM PANEL Glucose Lvl 94 70 - 99 09/30/2016 [facility] CHEM PANEL BUN 37 7 - 22 09/30/2016 [facility] HEMATOLOGY RDW 19.0 11.5 - 14.5 09/30/2016 [facility] HEMATOLOGY Platelet 346 133 - 450 09/30/2016 [facility] HEMATOLOGY MPV 8.1 7.4 - 10.4 09/30/2016 [facility] HEMATOLOGY RBC X 10x6 3.84 4.70 - 6.10 09/30/2016 [facility] HEMATOLOGY Hgb 9.7 14.0 - 18.0 09/30/2016 [facility] WBC X 10x3 8.5 3.7 - 10.4 09/30/2016 [facility] HEMATOLOGY MCH 25.2 27.0 - 31.0 09/30/2016 [facility] HEMATOLOGY MCHC 32.7 32.0 - 36.0 09/30/2016 [facility] HEMATOLOGY MCV 76.9 80.0 - 94.0 09/30/2016 [facility] HEMATOLOGY Hct 29.6 42.0 - 54.0 09/30/2016 [facility] HEMATOLOGY Lymphocytes # 2.5 1.0 - 5.5 09/30/2016 [facility] HEMATOLOGY Segs 54.4 45.0 - 75.0 09/30/2016 [facility] HEMATOLOGY Basophils 1.0 0.0 - 1.0 09/30/2016 [facility] Segs-Bands # 4.6 1.5 - 8.1 09/30/2016 [facility] Lymphocytes 29.4 20.0 - 40.0 09/30/2016 [facility] HEMATOLOGY Eosinophils 2.8 0.0 - 4.0 09/30/2016 [facility] Monocytes 12.4 2.0 - 12.0 09/30/2016 [facility] Microcyte 1+ *ABN* (09/30/16 5:05 AM) None Seen 09/30/2016 [facility] Basophils # 0.1 0.0 - 0.2 09/30/2016 [facility] Eosinophils # 0.2 0.0 - 0.5 09/30/2016 [facility] Monocytes # 1.1 0.0 - 0.8 09/30/2016 [facility] TOXICOLOGY Vanco Lvl 38.9 09/30/2016 [facility] TOXICOLOGY Vanco Lvl 46.9 09/29/2016 [facility] TOXICOLOGY Vanco Tr TND 03:30 09/29/2016 [facility] TOXICOLOGY Vanco Tr 38.4 09/29/2016 [facility] Basophils # 0.1 0.0 - 0.2 09/28/2016 [facility] ANEMIA STUDY Ferritin Lvl 200 22 - 275 09/26/2016 [facility] ANEMIA STUDY UIBC 171 110 - 370 09/26/2016 [facility] ANEMIA STUDY % Satur Fe 18 12 - 57 09/26/2016 [facility] ANEMIA STUDY TIBC 209 228 - 428 09/26/2016 [facility] ANEMIA STUDY Iron 38 45 - 160 09/26/2016 [facility] ANEMIA STUDY RBC Folate 1122 280 - 791 09/26/2016 [facility] ANEMIA STUDY Folate Lvl 16.6 >=3.0 ng/mL 09/26/2016 [facility] ANEMIA STUDY Vitamin B12 Lvl 295 254 - 1320 09/26/2016 [facility] HEMATOLOGY Plt Morph Leeann l (09/26/16 4:24 AM) 09/26/2016 [facility] HEMATOLOGY RBC Morph Leeann l (09/26/16 4:24 AM) 09/26/2016 [facility] IMMUNOLOGY C-REACTIVE PROTEIN 84.7 <=2.9 mg/L 09/26/2016 [facility] CHEM PANEL Lactic Acid Lvl 0.8 0.5 - 2.2 09/25/2016 [facility] CARDIAC ENZYMES Troponin-I <0.02 0.00 - 0.40 09/25/2016 [facility] CARDIAC ENZYMES CK MB 0.5 0.5 - 3.6 09/25/2016 [facility] CARDIAC ENZYMES Total CK 64 12 - 191 09/25/2016 [facility] CARDIAC ENZYMES CK-MB INDEX 0.8 0.0 - 2.5 09/25/2016 [facility] CHEM PANEL ASPARTATE TRANSAMINASE 11 0 - 37 09/25/2016 [facility] CHEM PANEL Bili Total 0.4 0.2 - 1.3 09/25/2016 [facility] CHEM PANEL Total Protein 9.5 6.4 - 8.4 09/25/2016 [facility] CHEM PANEL ALANINE AMINOTRANSFERASE 14 0 - 65 09/25/2016 [facility] CHEM PANEL Alk Phos 115 39 - 136 09/25/2016 [facility] CHEM PANEL Albumin Lvl 3.4 3.5 - 5.0 09/25/2016 [facility] CHEM PANEL A/G Ratio 0.6 0.7 - 1.6 09/25/2016 [facility] CHEM PANEL Globulin 6.1 2.7 - 4.2 09/25/2016 [facility] CHEM PANEL B/C Ratio 15 6 - 25 09/25/2016 [facility] CHEM PANEL eGFR 57 09/22/2016 Result [...] should [facility] the [facility] ASPARTATE TRANSAMINASE 8 0 - 37 09/22/2016 [facility] Sodium Lvl 140 135 - 145 09/22/2016 [facility] CHEM PANEL Chloride Lvl 110 95 - 109 09/22/2016 [facility] Creatinine Lvl 1.60 0.50 - 1.40 09/22/2016 [facility] Potassium Lvl 3.9 3.5 - 5.1 09/22/2016 [facility] BUN 25 7 - 22 09/22/2016 [facility] CHEM PANEL CO2 22 24 - 32 09/22/2016 [facility] CHEM PANEL ALANINE AMINOTRANSFERASE 17 0 - 65 09/22/2016 [facility] CHEM PANEL Albumin Lvl 3.3 3.5 - 5.0 09/22/2016 [facility] Alk Phos 117 39 - 136 09/22/2016 [facility] Glucose Lvl 95 70 - 99 09/22/2016 [facility] CHEM PANEL Bili Total 0.3 0.2 - 1.3 09/22/2016 [facility] CHEM PANEL Total Protein 9.5 6.4 - 8.4 09/22/2016 [facility] CHEM PANEL Calcium Lvl 9.3 8.5 - 10.5 09/22/2016 [facility] CHEM PANEL AGAP 11.9 10.0 - 20.0 09/22/2016 [facility] CHEM PANEL B/C Ratio 16 6 - 25 09/22/2016 [facility] CHEM PANEL Globulin 6.2 2.7 - 4.2 09/22/2016 [facility] CHEM PANEL A/G Ratio 0.5 0.7 - 1.6 09/22/2016 [facility] HEMATOLOGY Segs 68.1 45.0 - 75.0 09/22/2016 [facility] HEMATOLOGY Lymphocytes 19.6 20.0 - 40.0 09/22/2016 [facility] HEMATOLOGY Monocytes 8.8 2.0 - 12.0 09/22/2016 [facility] HEMATOLOGY Eosinophils 2.5 0.0 - 4.0 09/22/2016 [facility] HEMATOLOGY Microcyte 1+ *ABN* (09/22/16 1:38 PM) None Seen 09/22/2016 [facility] HEMATOLOGY Segs-Bands # 7.3 1.5 - 8.1 09/22/2016 [facility] HEMATOLOGY Basophils 1.0 0.0 - 1.0 09/22/2016 [facility] HEMATOLOGY Lymphocytes # 2.1 1.0 - 5.5 09/22/2016 [facility] HEMATOLOGY Monocytes # 0.9 0.0 - 0.8 09/22/2016 [facility] HEMATOLOGY Basophils # 0.1 0.0 - 0.2 09/22/2016 [facility] HEMATOLOGY Eosinophils # 0.3 0.0 - 0.5 09/22/2016 [facility] MCV 76.9 80.0 - 94.0 09/22/2016 [facility] Hct 31.2 42.0 - 54.0 09/22/2016 [facility] WBC X 10x3 10.7 3.7 - 10.4 09/22/2016 [facility] RBC X 10x6 4.06 4.70 - 6.10 09/22/2016 [facility] Hgb 10.1 14.0 - 18.0 09/22/2016 [facility] MCHC 32.3 32.0 - 36.0 09/22/2016 [facility] Platelet 547 133 - 450 09/22/2016 [facility] MCH 24.8 27.0 - 31.0 09/22/2016 [facility] RDW 20.1 11.5 - 14.5 09/22/2016 [facility] MPV 7.4 7.4 - 10.4 09/22/2016 [facility] URINE AND STOOL UA RBC 0-2 /HPF 0 - 2 09/10/2016 [facility] URINE AND STOOL UA Leuk Est Moderate *ABN* (09/10/16 2:30 PM) Negative 09/10/2016 [facility] URINE AND STOOL UA Sq Epi Rare /LPF Few /LPF 09/10/2016 [facility] URINE AND STOOL UA WBC 3-5 /HPF None Seen /HPF 09/10/2016 [facility] URINE AND STOOL UA Bacteria Occasional /HPF None Seen /HPF 09/10/2016 [facility] URINE AND STOOL UA Blood Moderate *ABN* (09/10/16 2:30 PM) Negative 09/10/2016 [facility] URINE AND STOOL UA Urobilinogen 0.2 0.1 - 1.0 09/10/2016 [facility] URINE AND STOOL UA Nitrite Negative (09/10/16 2:30 PM) Negative 09/10/2016 [facility] URINE AND STOOL UA Bili Negative *NA* (09/10/16 2:30 PM) Negative 09/10/2016 [facility] URINE AND STOOL UA Color Yellow *NA* (09/10/16 2:30 PM) Yellow 09/10/2016 [facility] URINE AND STOOL UA Turbidity Clear (09/10/16 2:30 PM) Clear 09/10/2016 [facility] URINE AND STOOL UA Spec Grav 1.010 <=1.030 09/10/2016 [facility] URINE AND STOOL UA pH 7.0 5.0 - 8.0 09/10/2016 [facility] URINE AND STOOL UA Protein 30 mg/dL Negative mg/dL 09/10/2016 [facility] URINE AND STOOL UA Glucose Negative (09/10/16 2:30 PM) Negative 09/10/2016 [facility] URINE AND STOOL UA Ketones Negative *NA* (09/10/16 2:30 PM) Negative 09/10/2016 [facility] CHEM PANEL Lactic Acid Lvl 1.0 0.5 - 2.2 09/10/2016 [facility] ELECTROLYTES AGAP 8.4 10.0 - 20.0 09/10/2016 [facility] ELECTROLYTES eGFR 45 09/10/2016 Result Comment: [...] should be multiplied by the estimated BMI. [facility] ELECTROLYTES Sodium Lvl 141 135 - 145 09/10/2016 [facility] ELECTROLYTES Potassium Lvl 4.4 3.5 - 5.1 09/10/2016 [facility] ELECTROLYTES Calcium Lvl 8.5 8.5 - 10.5 09/10/2016 [facility] ELECTROLYTES CO2 28 24 - 32 09/10/2016 [facility] ELECTROLYTES Chloride Lvl 109 95 - 109 09/10/2016 [facility] ELECTROLYTES BUN 32 7 - 22 09/10/2016 [facility] ELECTROLYTES Creatinine Lvl 1.9 4 0.50 - 1.40 09/10/2016 [facility] ELECTROLYTES Glucose Lvl 101 70 - 99 09/10/2016 [facility] HEMATOLOGY MPV 7.7 7.4 - 10.4 09/10/2016 [facility] HEMATOLOGY Platelet 234 133 - 450 09/10/2016 [facility] MCH 24.7 27.0 - 31.0 09/10/2016 [facility] HEMATOLOGY RBC X 10x6 3.32 4.70 - 6.10 09/10/2016 [facility] WBC X 10x3 4.7 3.7 - 10.4 09/10/2016 [facility] MCV 76.8 80.0 - 94.0 09/10/2016 [facility] Hgb 8.2 14.0 - 18.0 09/10/2016 [facility] MCHC 32.1 32.0 - 36.0 09/10/2016 [facility] RDW 21.5 11.5 - 14.5 09/10/2016 [facility] Hct 25.5 42.0 - 54.0 09/10/2016 [facility] Monocytes # 0.8 0.0 - 0.8 09/10/2016 [facility] Lymphocytes # 1.4 1.0 - 5.5 09/10/2016 [facility] Eosinophils # 0.3 0.0 - 0.5 09/10/2016 [facility] Microcyte 1+ *ABN* (09/10/16 2:29 PM) None Seen 09/10/2016 [facility] Lymphocytes 29.0 20.0 - 40.0 09/10/2016 [facility] Monocytes 16.5 2.0 - 12.0 09/10/2016 [facility] Segs 48.0 45.0 - 75.0 09/10/2016 [facility] HEMATOLOGY Segs-Bands # 2.3 1.5 - 8.1 09/10/2016 [facility] HEMATOLOGY Eosinophils 5.7 0.0 - 4.0 09/10/2016 [facility] HEMATOLOGY Basophils 0.8 0.0 - 1.0 09/10/2016 [facility] CHEM PANEL BUN 44 7 - 22 09/04/2016 [facility] CHEM PANEL Creatinine Lvl 2.30 0.50 - 1.40 09/04/2016 [facility] Potassium Lvl 4.8 3.5 - 5.1 09/04/2016 [facility] Sodium Lvl 141 135 - 145 09/04/2016 [facility] Chloride Lvl 107 95 - 109 09/04/2016 [facility] Calcium Lvl 8.2 8.5 - 10.5 09/04/2016 [facility] CO2 27 24 - 32 09/04/2016 [facility] Glucose Lvl 134 70 - 99 09/04/2016 [facility] eGFR 36 09/04/2016 Result Comment: [...] should be multiplied by the estimated BMI. [facility] CHEM PANEL AGAP 11.8 10.0 - 20.0 09/04/2016 [facility] HEMATOLOGY Microcyte 1+ *ABN* (09/04/16 12:10 PM) None Seen 09/04/2016 [facility] HEMATOLOGY Basophils # 0.1 0.0 - 0.2 09/04/2016 [facility] HEMATOLOGY Eosinophils 8.6 0.0 - 4.0 09/04/2016 [facility] HEMATOLOGY Basophils 0.8 0.0 - 1.0 09/04/2016 [facility] Monocytes # 0.9 0.0 - 0.8 09/04/2016 [facility] HEMATOLOGY Eosinophils # 0.7 0.0 - 0.5 09/04/2016 [facility] Monocytes 11.2 2.0 - 12.0 09/04/2016 [facility] Segs-Bands # 3.0 1.5 - 8.1 09/04/2016 [facility] Lymphocytes # 3.3 1.0 - 5.5 09/04/2016 [facility] Lymphocytes 41.2 20.0 - 40.0 09/04/2016 [facility] Segs 38.2 45.0 - 75.0 09/04/2016 [facility] MCHC 31.5 32.0 - 36.0 09/04/2016 [facility] MCH 24.5 27.0 - 31.0 09/04/2016 [facility] HEMATOLOGY RDW 21.3 11.5 - 14.5 09/04/2016 [facility] Platelet 228 133 - 450 09/04/2016 [facility] Hgb 8.4 14.0 - 18.0 09/04/2016 [facility] Hct 26.6 42.0 - 54.0 09/04/2016 [facility] MCV 77.8 80.0 - 94.0 09/04/2016 [facility] MPV 8.0 7.4 - 10.4 09/04/2016 [facility] RBC X 10x6 3.42 4.70 - 6.10 09/04/2016 [facility] WBC X 10x3 7.9 3.7 - 10.4 09/04/2016 [facility] ELECTROLYTES AGAP 14.1 10.0 - 20.0 09/03/2016 [facility] ELECTROLYTES eGFR 33 09/03/2016 Result Comment: [...] should be multiplied by the estimated BMI. [facility] ELECTROLYTES BUN 36 7 - 22 09/03/2016 [facility] ELECTROLYTES Creatinine Lvl 2.5 3 0.50 - 1.40 09/03/2016 [facility] ELECTROLYTES Potassium Lvl 4.1 3.5 - 5.1 09/03/2016 [facility] ELECTROLYTES Glucose Lvl 122 70 - 99 09/03/2016 [facility] ELECTROLYTES Sodium Lvl 144 135 - 145 09/03/2016 [facility] ELECTROLYTES CO2 23 24 - 32 09/03/2016 [facility] ELECTROLYTES Calcium Lvl 8.2 8.5 - 10.5 09/03/2016 [facility] ELECTROLYTES Chloride Lvl 111 95 - 109 09/03/2016 [facility] HEMATOLOGY Sed Rate 72 0 - 15 09/03/2016 [facility] HEMATOLOGY Hgb 8.6 14.0 - 18.0 09/03/2016 [facility] HEMATOLOGY RBC X 10x6 3.56 4.70 - 6.10 09/03/2016 [facility] HEMATOLOGY WBC X 10x3 5.7 3.7 - 10.4 09/03/2016 [facility] HEMATOLOGY MCV 77.8 80.0 - 94.0 09/03/2016 [facility] HEMATOLOGY Hct 27.7 42.0 - 54.0 09/03/2016 [facility] HEMATOLOGY MCH 24.2 27.0 - 31.0 09/03/2016 [facility] HEMATOLOGY MCHC 31.1 32.0 - 36.0 09/03/2016 [facility] HEMATOLOGY RDW 21.4 11.5 - 14.5 09/03/2016 [facility] HEMATOLOGY MPV 8.2 7.4 - 10.4 09/03/2016 [facility] Platelet 224 133 - 450 09/03/2016 [facility] Monocytes # 0.6 0.0 - 0.8 09/03/2016 [facility] Lymphocytes # 2.5 1.0 - 5.5 09/03/2016 [facility] HEMATOLOGY Eosinophils # 0.6 0.0 - 0.5 09/03/2016 [facility] HEMATOLOGY Microcyte 1+ *ABN* (09/03/16 4:30 AM) None Seen 09/03/2016 [facility] HEMATOLOGY Eosinophils 10.4 0.0 - 4.0 09/03/2016 [facility] HEMATOLOGY Monocytes 10.9 2.0 - 12.0 09/03/2016 [facility] HEMATOLOGY Segs-Bands # 2.0 1.5 - 8.1 09/03/2016 [facility] HEMATOLOGY Basophils 0.7 0.0 - 1.0 09/03/2016 [facility] HEMATOLOGY Lymphocytes 43.3 20.0 - 40.0 09/03/2016 [facility] HEMATOLOGY Segs 34.7 45.0 - 75.0 09/03/2016 [facility] IMMUNOLOGY C-REACTIVE PROTEIN 53.7 <=2.9 mg/L 09/03/2016 [facility] CHEM PANEL Glucose Lvl 112 70 - 99 09/02/2016 [facility] CHEM PANEL eGFR 30 09/02/2016 Result [...] should be multiplied by the estimated BMI. [facility] CHEM PANEL Sodium Lvl 145 135 - 145 09/02/2016 [facility] CHEM PANEL BUN 35 7 - 22 09/02/2016 [facility] CHEM PANEL Creatinine Lvl 2.67 0.50 - 1.40 09/02/2016 [facility] CHEM PANEL Potassium Lvl 3.9 3.5 - 5.1 09/02/2016 [facility] CHEM PANEL Chloride Lvl 113 95 - 109 09/02/2016 [facility] CHEM PANEL CO2 22 24 - 32 09/02/2016 [facility] CHEM PANEL Calcium Lvl 8.1 8.5 - 10.5 09/02/2016 [facility] CHEM PANEL AGAP 13.9 10.0 - 20.0 09/02/2016 [facility] HEMATOLOGY Basophils 1.1 0.0 - 1.0 08/31/2016 [facility] HEMATOLOGY Segs-Bands # 5.0 1.5 - 8.1 08/31/2016 [facility] HEMATOLOGY Monocytes 9.9 2.0 - 12.0 08/31/2016 [facility] HEMATOLOGY Eosinophils 3.7 0.0 - 4.0 08/31/2016 [facility] HEMATOLOGY Microcyte 1+ *ABN* (08/31/16 4:25 AM) None Seen 08/31/2016 [facility] HEMATOLOGY Basophils # 0.1 0.0 - 0.2 08/31/2016 [facility] HEMATOLOGY Monocytes # 0.9 0.0 - 0.8 08/31/2016 [facility] HEMATOLOGY Eosinophils # 0.3 0.0 - 0.5 08/31/2016 [facility] Lymphocytes # 3.0 1.0 - 5.5 08/31/2016 [facility] HEMATOLOGY Segs 53.4 45.0 - 75.0 08/31/2016 [facility] Lymphocytes 31.9 20.0 - 40.0 08/31/2016 [facility] HEMATOLOGY WBC X 10x3 9.3 3.7 - 10.4 08/31/2016 [facility] HEMATOLOGY Hct 26.8 42.0 - 54.0 08/31/2016 [facility] HEMATOLOGY MCV 76.2 80.0 - 94.0 08/31/2016 [facility] HEMATOLOGY RBC X 10x6 3.51 4.70 - 6.10 08/31/2016 [facility] HEMATOLOGY Hgb 8.5 14.0 - 18.0 08/31/2016 [facility] Platelet 253 133 - 450 08/31/2016 [facility] MPV 8.3 7.4 - 10.4 08/31/2016 [facility] MCHC 31.8 32.0 - 36.0 08/31/2016 [facility] RDW 21.2 11.5 - 14.5 08/31/2016 [facility] MCH 24.3 27.0 - 31.0 08/31/2016 [facility] DRUG SCREEN U Benzodia Scr Nega tive *NA* (08/30/16 6:30 AM) Negative 08/30/2016 [facility] DRUG SCREEN U Cocaine Scr Nega tive *NA* (08/30/16 6:30 AM) Negative 08/30/2016 [facility] DRUG SCREEN UDS Note See Note *NA* (08/30/16 6:30 AM) 08/30/2016 [facility] DRUG SCREEN U Amph Scr Nega tive *NA* (08/30/16 6:30 AM) Negative 08/30/2016 [facility] DRUG SCREEN U Chelsie Scr Nega tive *NA* (08/30/16 6:30 AM) Negative 08/30/2016 [facility] DRUG SCREEN U Phencyc Scr Nega tive *NA* (08/30/16 6:30 AM) Negative 08/30/2016 [facility] DRUG SCREEN U Cannab Scr Nega tive *NA* (08/30/16 6:30 AM) Negative 08/30/2016 [facility] DRUG SCREEN U Opiate Scr Nega tive *NA* (08/30/16 6:30 AM) Negative 08/30/2016 [facility] CARDIAC ENZYMES Troponin-I 0.02 0.00 - 0.40 08/30/2016 [facility] CHEM PANEL Globulin 6.4 2.7 - 4.2 08/30/2016 [facility] CHEM PANEL A/G Ratio 0.5 0.7 - 1.6 08/30/2016 [facility] CHEM PANEL B/C Ratio 11 6 - 25 08/30/2016 [facility] CHEM PANEL Bili Total 0.3 0.2 - 1.3 08/30/2016 [facility] CHEM PANEL ASPARTATE TRANSAMINASE 17 0 - 37 08/30/2016 [facility] CHEM PANEL Total Protein 9.8 6.4 - 8.4 08/30/2016 [facility] CHEM PANEL Albumin Lvl 3.4 3.5 - 5.0 08/30/2016 [facility] CHEM PANEL Alk Phos 104 39 - 136 08/30/2016 [facility] CHEM PANEL ALANINE AMINOTRANSFERASE 31 0 - 65 08/30/2016 [facility] HEMATOLOGY INR 1.11 0.85 - 1.17 08/30/2016 [facility] HEMATOLOGY PROTIME 14.5 12.0 - 14.7 08/30/2016 [facility] HEMATOLOGY aPTT 34.0 22.9 - 35.8 08/30/2016 [facility] CHEM PANEL Lactic Acid Lvl 1.5 0.5 - 2.2 08/30/2016 [facility] HEMATOLOGY Basophils # 0.1 0.0 - 0.2 08/30/2016 [facility] URINE AND STOOL UA Urobilinogen 0.2 0.1 - 1.0 08/30/2016 [facility] URINE AND STOOL UA Leuk Est Moderate *ABN* (08/29/16 11:37 PM) Negative 08/30/2016 [facility] URINE AND STOOL UA Nitrite Negative (08/29/16 11:37 PM) Negative 08/30/2016 [facility] URINE AND STOOL UA Bili Negative *NA* (08/29/16 11:37 PM) Negative 08/30/2016 [facility] URINE AND STOOL UA Blood Large *ABN* (08/29/16 11:37 PM) Negative 08/30/2016 [facility] URINE AND STOOL UA Ketones Negative *NA* (08/29/16 11:37 PM) Negative 08/30/2016 [facility] URINE AND STOOL UA Glucose 250 mg/dL Negative mg/dL 08/30/2016 [facility] URINE AND STOOL UA pH 6.5 5.0 - 8.0 08/30/2016 [facility] URINE AND STOOL UA Protein 100 mg/dL Negative mg/dL 08/30/2016 [facility] URINE AND STOOL UA Turbidity Clear (08/29/16 11:37 PM) Clear 08/30/2016 [facility] URINE AND STOOL UA Spec Grav 1.020 <=1.030 08/30/2016 [facility] URINE AND STOOL UA Color Yellow *NA* (08/29/16 11:37 PM) Yellow 08/30/2016 [facility] URINE AND STOOL UA RBC 6-10 /HPF 0 - 2 08/30/2016 [facility] URINE AND STOOL UA WBC 6-10 /HPF None Seen /HPF 08/30/2016 [facility] URINE AND STOOL UA Sq Epi None Seen (08/29/16 11:37 PM) Few 08/30/2016 [facility] URINE AND STOOL UA [place] Yeast Occasional /HPF None Seen /HPF 08/30/2016 [facility] CARDIAC ENZYMES CK MB Index 2.0 0.0 - 2.5 08/23/2016 [facility] CARDIAC ENZYMES Troponin-I <0.02 0.00 - 0.40 08/23/2016 [facility] CARDIAC ENZYMES CK MB 1.0 0.5 - 3.6 08/23/2016 [facility] CARDIAC ENZYMES Total CK 51 12 - 191 08/23/2016 [facility] CHEM PANEL eGFR 10 08/23/2016 [...] should be multiplied by the estimated BMI. [facility] CHEM PANEL A/G Ratio 0.5 0.7 - 1.6 08/23/2016 [facility] CHEM PANEL B/C Ratio 17 6 - 25 08/23/2016 [facility] CHEM PANEL Globulin 5.7 2.7 - 4.2 08/23/2016 [facility] CHEM PANEL AGAP 14.9 10.0 - 20.0 08/23/2016 [facility] CHEM PANEL Creatinine Lvl 6.50 0.50 - 1.40 08/23/2016 [facility] CHEM PANEL Sodium Lvl 134 135 - 145 08/23/2016 [facility] CHEM PANEL BUN 108 7 - 22 08/23/2016 [facility] CHEM PANEL Calcium Lvl 8.6 8.5 - 10.5 08/23/2016 [facility] CHEM PANEL ALT 16 0 - 65 08/23/2016 [facility] CHEM PANEL Albumin Lvl 2.8 3.5 - 5.0 08/23/2016 [facility] CHEM PANEL Potassium Lvl 5.9 3.5 - 5.1 08/23/2016 [facility] CHEM PANEL Chloride Lvl 104 95 - 109 08/23/2016 [facility] CHEM PANEL CO2 21 24 - 32 08/23/2016 [facility] CHEM PANEL Alk Phos 87 39 - 136 08/23/2016 [facility] CHEM PANEL Total Protein 8.5 6.4 - 8.4 08/23/2016 [facility] CHEM PANEL AST 10 0 - 37 08/23/2016 [facility] CHEM PANEL Bili Total 0.1 0.2 - 1.3 08/23/2016 [facility] CHEM PANEL Glucose Lvl 85 70 - 99 08/23/2016 [facility] HEMATOLOGY PTT 34.8 22.9 - 35.8 08/23/2016 [facility] HEMATOLOGY PT 13.0 12.0 - 14.7 08/23/2016 [facility] HEMATOLOGY INR 0.96 0.85 - 1.17 08/23/2016 [facility] HEMATOLOGY MPV 8.4 7.4 - 10.4 08/23/2016 [facility] HEMATOLOGY Platelet 362 133 - 450 08/23/2016 [facility] HEMATOLOGY RDW 20.7 11.5 - 14.5 08/23/2016 [facility] MCHC 31.9 32.0 - 36.0 08/23/2016 [facility] HEMATOLOGY MCV 76.3 80.0 - 94.0 08/23/2016 [facility] HEMATOLOGY MCH 24.4 27.0 - 31.0 08/23/2016 [facility] HEMATOLOGY Hct 27.6 42.0 - 54.0 08/23/2016 [facility] HEMATOLOGY Hgb 8.8 14.0 - 18.0 08/23/2016 [facility] HEMATOLOGY RBC 3.62 4.70 - 6.10 08/23/2016 [facility] HEMATOLOGY WBC 8.0 3.7 - 10.4 08/23/2016 [facility] HEMATOLOGY Microcyte 1+ *ABN* (08/23/16 5:27 PM) None Seen 08/23/2016 [facility] HEMATOLOGY Basophils # 0.1 0.0 - 0.2 08/23/2016 [facility] HEMATOLOGY Monocytes # 0.8 0.0 - 0.8 08/23/2016 [facility] HEMATOLOGY Eosinophils # 0.4 0.0 - 0.5 08/23/2016 [facility] HEMATOLOGY Lymphocytes # 2.9 1.0 - 5.5 08/23/2016 [facility] HEMATOLOGY Segs-Bands # 3.9 1.5 - 8.1 08/23/2016 [facility] HEMATOLOGY Eosinophils 4.7 0.0 - 4.0 08/23/2016 [facility] HEMATOLOGY Monocytes 9.5 2.0 - 12.0 08/23/2016 [facility] HEMATOLOGY Basophils 1.1 0.0 - 1.0 08/23/2016 [facility] HEMATOLOGY Segs 48.6 45.0 - [...] UA Ketones Negative mg/dL Negative mg/dL 08/23/2016 [facility] URINE AND STOOL UA Protein 30 [...] Turbidity Clear (08/23/16 5:27 PM) Clear 08/23/2016 [facility] CHEM PANEL Glucose Lvl 95 70 - 99 08/23/2016 [facility] CHEM PANEL AST 7 0 - 37 08/23/2016 [facility] CHEM PANEL ALT 16 0 - 65 08/23/2016 [facility] CHEM PANEL Bili Total 0.2 0.2 - 1.3 08/23/2016 [facility] CHEM PANEL Alk Phos 80 39 - 136 08/23/2016 [facility] CHEM PANEL Albumin Lvl 2.5 3.5 - 5.0 08/23/2016 [facility] CHEM PANEL Sodium Lvl 137 135 - 145 08/23/2016 [facility] CHEM PANEL Chloride Lvl 107 95 - 109 08/23/2016 [facility] CHEM PANEL Potassium Lvl 5.7 3.5 - 5.1 08/23/2016 [facility] CHEM PANEL Creatinine Lvl 6.80 0.50 - 1.40 08/23/2016 [facility] CHEM PANEL BUN 103 7 - 22 08/23/2016 [facility] CHEM PANEL Total Protein 7.6 6.4 - 8.4 08/23/2016 [facility] CHEM PANEL Calcium Lvl 8.5 8.5 - 10.5 08/23/2016 [facility] CHEM PANEL CO2 17 24 - 32 08/23/2016 [facility] CHEM PANEL eGFR 10 08/23/2016 [...] should be multiplied by the estimated BMI. [facility] CHEM PANEL Globulin 5.1 2.7 - 4.2 08/23/2016 [facility] CHEM PANEL B/C Ratio 15 6 - 25 08/23/2016 [facility] CHEM PANEL A/G Ratio 0.5 0.7 - 1.6 08/23/2016 [facility] CHEM PANEL AGAP 18.7 10.0 - 20.0 08/23/2016 [facility] HEMATOLOGY MCV 75.7 80.0 - 94.0 08/23/2016 [facility] HEMATOLOGY Hgb 8.6 14.0 - 18.0 08/23/2016 [facility] HEMATOLOGY RBC 3.53 4.70 - 6.10 08/23/2016 [facility] HEMATOLOGY MPV 8.1 7.4 - 10.4 08/23/2016 [facility] HEMATOLOGY Hct 26.7 42.0 - 54.0 08/23/2016 [facility] WBC 7.9 3.7 - 10.4 08/23/2016 [facility] MCHC 32.0 32.0 - 36.0 08/23/2016 [facility] MCH 24.2 27.0 - 31.0 08/23/2016 [facility] Platelet 350 133 - 450 08/23/2016 [facility] RDW 20.8 11.5 - 14.5 08/23/2016 [facility] Eosinophils 5.1 0.0 - 4.0 08/23/2016 [facility] Monocytes 9.9 2.0 - 12.0 08/23/2016 [facility] Segs-Bands # 3.4 1.5 - 8.1 08/23/2016 [facility] Basophils 0.9 0.0 - 1.0 08/23/2016 [facility] Eosinophils # 0.4 0.0 - 0.5 08/23/2016 [facility] Monocytes # 0.8 0.0 - 0.8 08/23/2016 [facility] Lymphocytes # 3.3 1.0 - 5.5 08/23/2016 [facility] Microcyte 1+ *ABN* (08/23/16 6:07 AM) None Seen 08/23/2016 [facility] Basophils # 0.1 0.0 - 0.2 08/23/2016 [facility] Lymphocytes 41.5 20.0 - 40.0 08/23/2016 [facility] Segs 42.6 45.0 - 75.0 08/23/2016 [facility] CHEM PANEL eGFR 10 08/22/2016 [...] should be multiplied by the estimated BMI. [facility] CHEM PANEL CO2 21 24 - 32 08/22/2016 [facility] CHEM PANEL Calcium Lvl 8.1 8.5 - 10.5 08/22/2016 [facility] CHEM PANEL Glucose Lvl 106 70 - 99 08/22/2016 [facility] CHEM PANEL BUN 93 7 - 22 08/22/2016 [facility] CHEM PANEL Creatinine Lvl 6.90 0.50 - 1.40 08/22/2016 [facility] CHEM PANEL Potassium Lvl 5.8 3.5 - 5.1 08/22/2016 [facility] CHEM PANEL Chloride Lvl 105 95 - 109 08/22/2016 [facility] CHEM PANEL Sodium Lvl 138 135 - 145 08/22/2016 [facility] CHEM PANEL AGAP 17.8 10.0 - 20.0 08/22/2016 [facility] Monocytes 12.1 2.0 - 12.0 08/22/2016 [facility] HEMATOLOGY Segs 41.0 45.0 - 75.0 08/22/2016 [facility] Lymphocytes 40.8 20.0 - 40.0 08/22/2016 [facility] Eosinophils 5.2 0.0 - 4.0 08/22/2016 [facility] HEMATOLOGY Basophils # 0.1 0.0 - 0.2 08/22/2016 [facility] Eosinophils # 0.4 0.0 - 0.5 08/22/2016 [facility] Microcyte 1+ *ABN* (08/22/16 5:14 AM) None Seen 08/22/2016 [facility] Monocytes # 0.9 0.0 - 0.8 08/22/2016 [facility] Lymphocytes # 3.1 1.0 - 5.5 08/22/2016 [facility] Basophils 0.9 0.0 - 1.0 08/22/2016 [facility] Segs-Bands # 3.2 1.5 - 8.1 08/22/2016 [facility] MCH 24.1 27.0 - 31.0 08/22/2016 [facility] MPV 8.5 7.4 - 10.4 08/22/2016 [facility] Platelet 371 133 - 450 08/22/2016 [facility] MCHC 31.7 32.0 - 36.0 08/22/2016 [facility] RDW 20.6 11.5 - 14.5 08/22/2016 [facility] HEMATOLOGY Hct 28.2 42.0 - 54.0 08/22/2016 [facility] HEMATOLOGY Hgb 8.9 14.0 - 18.0 08/22/2016 [facility] HEMATOLOGY MCV 76.1 80.0 - 94.0 08/22/2016 [facility] HEMATOLOGY RBC 3.70 4.70 - 6.10 08/22/2016 [facility] HEMATOLOGY WBC 7.7 3.7 - 10.4 08/22/2016 [facility] CHEM PANEL eGFR 9 08/21/2016 [...] should be multiplied by the estimated BMI. [facility] CHEM PANEL CO2 21 24 - 32 08/21/2016 [facility] CHEM PANEL Glucose Lvl 116 70 - 99 08/21/2016 [facility] CHEM PANEL Calcium Lvl 8.6 8.5 - 10.5 08/21/2016 [facility] CHEM PANEL Potassium Lvl 5.2 3.5 - 5.1 08/21/2016 [facility] CHEM PANEL Chloride Lvl 104 95 - 109 08/21/2016 [facility] CHEM PANEL Creatinine Lvl 7.10 0.50 - 1.40 08/21/2016 [facility] CHEM PANEL Sodium Lvl 140 135 - 145 08/21/2016 [facility] CHEM PANEL BUN 102 7 - 22 08/21/2016 [facility] CHEM PANEL ALT 21 0 - 65 08/21/2016 [facility] CHEM PANEL Total Protein 7.3 6.4 - 8.4 08/21/2016 [facility] CHEM PANEL Albumin Lvl 2.7 3.5 - 5.0 08/21/2016 [facility] CHEM PANEL Alk Phos 98 39 - 136 08/21/2016 [facility] CHEM PANEL Bili Total 0.1 0.2 - 1.3 08/21/2016 [facility] CHEM PANEL AST 16 0 - 37 08/21/2016 [facility] CHEM PANEL AGAP 20.2 10.0 - 20.0 08/21/2016 [facility] CHEM PANEL A/G Ratio 0.6 0.7 - 1.6 08/21/2016 [facility] CHEM PANEL Globulin 4.6 2.7 - 4.2 08/21/2016 [facility] CHEM PANEL B/C Ratio 14 6 - 25 08/21/2016 [facility] HEMATOLOGY Lymphocytes 39.3 20.0 - 40.0 08/21/2016 [facility] HEMATOLOGY Segs 43.1 45.0 - 75.0 08/21/2016 [facility] HEMATOLOGY Basophils 1.1 0.0 - 1.0 08/21/2016 [facility] HEMATOLOGY Segs-Bands # 4.3 1.5 - 8.1 08/21/2016 [facility] HEMATOLOGY Eosinophils 4.9 0.0 - 4.0 08/21/2016 [facility] HEMATOLOGY Monocytes 11.6 2.0 - 12.0 08/21/2016 [facility] HEMATOLOGY Microcyte 1+ *ABN* (08/21/16 6:05 AM) None Seen 08/21/2016 [facility] HEMATOLOGY Basophils # 0.1 0.0 - 0.2 08/21/2016 [facility] HEMATOLOGY Lymphocytes # 3.9 1.0 - 5.5 08/21/2016 [facility] HEMATOLOGY Eosinophils # 0.5 0.0 - 0.5 08/21/2016 [facility] HEMATOLOGY Monocytes # 1.1 0.0 - 0.8 08/21/2016 [facility] HEMATOLOGY WBC 9.9 3.7 - 10.4 08/21/2016 [facility] HEMATOLOGY RBC 4.03 4.70 - 6.10 08/21/2016 [facility] HEMATOLOGY Hgb 9.8 14.0 - 18.0 08/21/2016 [facility] HEMATOLOGY MCV 77.4 80.0 - 94.0 08/21/2016 [facility] HEMATOLOGY Hct 31.2 42.0 - 54.0 08/21/2016 [facility] HEMATOLOGY Platelet 409 133 - 450 08/21/2016 [facility] HEMATOLOGY MCH 24.4 27.0 - 31.0 08/21/2016 [facility] HEMATOLOGY RDW 21.0 11.5 - 14.5 08/21/2016 [facility] HEMATOLOGY MCHC 31.5 32.0 - 36.0 08/21/2016 [facility] HEMATOLOGY MPV 8.0 7.4 - 10.4 08/21/2016 [facility] CHEM PANEL B/C Ratio 14 6 - 25 08/20/2016 [facility] CHEM PANEL Total Protein 8.6 6.4 - 8.4 08/20/2016 [facility] CHEM PANEL Albumin Lvl 2.9 3.5 - 5.0 08/20/2016 [facility] CHEM PANEL Globulin 5.7 2.7 - 4.2 08/20/2016 [facility] CHEM PANEL A/G Ratio 0.5 0.7 - 1.6 08/20/2016 [facility] CHEM PANEL ALT 25 0 - 65 08/20/2016 [facility] CHEM PANEL Bili Total 0.2 0.2 - 1.3 08/20/2016 [facility] CHEM PANEL AST 18 0 - 37 08/20/2016 [facility] CHEM PANEL Alk Phos 96 39 - 136 08/20/2016 [facility] CHEM PANEL Magnesium Lvl 1.7 1.8 - 2.4 08/18/2016 [facility] CHEM PANEL Phosphorus 2.4 2.5 - 4.5 08/18/2016 [facility] URINE AND STOOL UA [place] Yeast Few /HPF None Seen /HPF 08/18/2016 [facility] URINE AND STOOL UA Trans Epi 20 <=0 /LPF 08/18/2016 [facility] URINE AND STOOL UA Sq Epi None Seen 08/18/2016 [facility] URINE AND STOOL UA pH [...] UA Ketones Negative mg/dL Negative mg/dL 08/18/2016 [facility] URINE AND STOOL UA Glucose 50 mg/dL Negative mg/dL 08/18/2016 [facility] URINE AND STOOL UA Bili Negative *NA* (08/18/16 3:03 AM) Negative 08/18/2016 [facility] URINE AND STOOL UA Blood Moderate *ABN* (08/18/16 3:03 AM) Negative 08/18/2016 [facility] URINE AND STOOL UA Nitrite Negative (08/18/16 3:03 AM) Negative 08/18/2016 [facility] URINE AND STOOL UA Leuk Est Moderate *ABN* (08/18/16 3:03 AM) Negative 08/18/2016 [facility] URINE AND STOOL UA Bacteria Occasional /HPF None Seen /HPF 08/18/2016 [facility] URINE AND STOOL UA WBC 98 0 - 5 08/18/2016 [facility] URINE AND STOOL UA RBC 117 0 - 2 08/18/2016 [facility] URINE CHEM U Eos 0-2 *ABN* (08/18/16 3:03 AM) None Seen 08/18/2016 [facility] HEMATOLOGY INR 1.04 0.85 - 1.17 08/16/2016 [facility] HEMATOLOGY PT 13.8 12.0 - 14.7 08/16/2016 [facility] ANEMIA STUDY Ferritin Lvl 102 22 - 275 08/14/2016 [facility] ANEMIA STUDY TIBC 164 228 - 428 08/14/2016 [facility] ANEMIA STUDY [place] 26 45 - 160 08/14/2016 [facility] ANEMIA STUDY % [place] 16 12 - 57 08/14/2016 [facility] ANEMIA STUDY UIBC 138 110 - 370 08/14/2016 [facility] TOXICOLOGY Vanco Tr 11.4 08/14/2016 [facility] TOXICOLOGY Vanco Tr TND 0 08/14/2016 [facility] URINE AND STOOL Occult Bld Stl Negative (08/13/16 4:35 PM) Negative 08/13/2016 [facility] CHEM PANEL Magnesium Lvl 2.2 1.8 - 2.4 08/13/2016 [facility] HEMATOLOGY Sed Rate >100 mm/hr 0 - 15 08/13/2016 [facility] IMMUNOLOGY CRP, High Sensitivity 95. 1 08/13/2016 [facility] CHEM PANEL Lactic Acid Lvl 0.7 0.5 - 2.2 08/12/2016 [facility] CHEM PANEL Magnesium Lvl 2.0 1.8 - 2.4 08/12/2016 [facility] CHEM PANEL Phosphorus 2.4 2.5 - 4.5 08/12/2016 [facility] CHEM PANEL Lactic Acid Lvl [...] tive *ABN* (08/11/16 7:46 PM) Negative 08/12/2016 [facility] CHEM PANEL Lactic Acid Lvl 1.7 0.5 - 2.2 08/11/2016 [facility] URINE AND STOOL UA Urobilinogen <=1.0 mg/dL 0.1 - 1.0 08/11/2016 [facility] URINE AND STOOL UA Mucus [...] UA Glucose Negative mg/dL Negative mg/dL 08/11/2016 [facility] URINE AND STOOL UA Protein 100 [...] Large *ABN* (08/11/16 1:50 PM) Negative 08/11/2016 [facility] URINE AND STOOL UA Bili Negative *NA* (08/11/16 1:50 PM) Negative 08/11/2016 [facility] URINE AND STOOL UA Nitrite Positive *ABN* (08/11/16 1:50 PM) Negative 08/11/2016 [facility] URINE AND STOOL UA Blood Moderate *ABN* (08/11/16 1:50 PM) Negative 08/11/2016 [facility] ELECTROLYTES AGAP 13.9 10.0 - 20.0 08/10/2016 [facility] ELECTROLYTES B/C Ratio 11 6 - 25 08/10/2016 [facility] ELECTROLYTES Globulin 6.4 2.7 - 4.2 08/10/2016 [facility] ELECTROLYTES A/G Ratio 0.4 0.7 - 1.6 08/10/2016 [facility] ELECTROLYTES eGFR 83 08/10/2016 Result Comment: [...] be multiplied by the estimated BMI. [facility] ELECTROLYTES Bili Total 0.4 0.2 - 1.3 08/10/2016 [facility] ELECTROLYTES Alk Phos 109 39 - 136 08/10/2016 [facility] ELECTROLYTES AST 13 0 - 37 08/10/2016 [facility] ELECTROLYTES ALT 14 0 - 65 08/10/2016 [facility] ELECTROLYTES Albumin Lvl 2.7 3.5 - 5.0 08/10/2016 [facility] ELECTROLYTES Total Protein 9.1 6.4 - 8.4 08/10/2016 [facility] ELECTROLYTES Calcium Lvl 9.3 8.5 - 10.5 08/10/2016 [facility] ELECTROLYTES CO2 25 24 - 32 08/10/2016 [facility] ELECTROLYTES Chloride Lvl 107 95 - 109 08/10/2016 [facility] ELECTROLYTES Potassium Lvl 3.9 3.5 - 5.1 08/10/2016 [facility] ELECTROLYTES Glucose Lvl 98 70 - 99 08/10/2016 [facility] ELECTROLYTES Creatinine Lvl 1.1 7 0.50 - 1.40 08/10/2016 [facility] ELECTROLYTES Sodium Lvl 142 135 - 145 08/10/2016 [facility] ELECTROLYTES BUN 13 7 - 22 08/10/2016 [facility] HEMATOLOGY Segs 73.0 45.0 - 75.0 08/10/2016 [facility] HEMATOLOGY Basophils 0.8 0.0 - 1.0 08/10/2016 [facility] HEMATOLOGY Segs-Bands # 6.6 1.5 - 8.1 08/10/2016 [facility] HEMATOLOGY Monocytes 7.0 2.0 - 12.0 08/10/2016 [facility] HEMATOLOGY Eosinophils 0.4 0.0 - 4.0 08/10/2016 [facility] HEMATOLOGY Lymphocytes 18.8 20.0 - 40.0 08/10/2016 [facility] HEMATOLOGY Basophils # 0.1 0.0 - 0.2 08/10/2016 [facility] HEMATOLOGY Monocytes # 0.6 0.0 - 0.8 08/10/2016 [facility] HEMATOLOGY Lymphocytes # 1.7 1.0 - 5.5 08/10/2016 [facility] HEMATOLOGY Microcyte 1+ *ABN* (08/10/16 5:37 AM) None Seen 08/10/2016 [facility] HEMATOLOGY RBC 4.01 4.70 - 6.10 08/10/2016 [facility] HEMATOLOGY WBC 9.1 3.7 - 10.4 08/10/2016 [facility] HEMATOLOGY RDW 20.1 11.5 - 14.5 08/10/2016 [facility] HEMATOLOGY MCV 76.3 80.0 - 94.0 08/10/2016 [facility] HEMATOLOGY MCH 24.2 27.0 - 31.0 08/10/2016 [facility] HEMATOLOGY Hct 30.6 42.0 - 54.0 08/10/2016 [facility] HEMATOLOGY Platelet 413 133 - 450 08/10/2016 [facility] HEMATOLOGY MPV 7.5 7.4 - 10.4 08/10/2016 [facility] HEMATOLOGY Hgb 9.7 14.0 - 18.0 08/10/2016 [facility] HEMATOLOGY MCHC 31.8 32.0 - 36.0 08/10/2016 [facility] URINE AND STOOL UA Blood Small *ABN* (08/10/16 5:37 AM) Negative 08/10/2016 [facility] URINE AND STOOL UA Bili Negative *NA* (08/10/16 5:37 AM) Negative 08/10/2016 [facility] URINE AND STOOL UA Ketones Trace *ABN* (08/10/16 5:37 AM) Negative 08/10/2016 [facility] URINE AND STOOL UA WBC Packed *ABN* (08/10/16 5:37 AM) None Seen 08/10/2016 [facility] URINE AND STOOL UA Urobilinogen 0.2 0.1 - 1.0 08/10/2016 [facility] URINE AND STOOL UA Leuk Est Large *ABN* (08/10/16 5:37 AM) Negative 08/10/2016 [facility] URINE AND STOOL UA RBC 6-10 /HPF 0 - 2 08/10/2016 [facility] URINE AND STOOL UA Sq Epi Few /LPF Few /LPF 08/10/2016 [facility] URINE AND STOOL UA Nitrite Positive *ABN* (08/10/16 5:37 AM) Negative 08/10/2016 [facility] URINE AND STOOL UA Bacteria Moderate /HPF None Seen /HPF 08/10/2016 [facility] URINE AND STOOL UA WBC Cast 0-2 /LPF None Seen /LPF 08/10/2016 [facility] URINE AND STOOL UA Mucus None Seen (08/10/16 5:37 AM) None Seen 08/10/2016 [facility] URINE AND STOOL UA Color Yellow *NA* (08/10/16 5:37 AM) Yellow 08/10/2016 [facility] URINE AND STOOL UA Turbidity Slight Cloudy (08/10/16 5:37 AM) Clear 08/10/2016 [facility] URINE AND STOOL UA Protein 100 mg/dL Negative mg/dL 08/10/2016 [facility] URINE AND STOOL UA Glucose Negative (08/10/16 5:37 AM) Negative 08/10/2016 [facility] URINE AND STOOL UA pH 6.5 5.0 - 8.0 08/10/2016 [facility] URINE AND STOOL UA Spec Grav 1.020 <=1.030 08/10/2016 [facility] [facility] CHE[facility] PANEL Lactic Acid Lvl 1.7 0.5 - 2.2 06/11/2016 [facility] CHEM PANEL AST 31 0 - 37 06/11/2016 [facility] CHEM PANEL A/G Ratio 0.4 0.7 - 1.6 06/11/2016 [facility] CHEM PANEL Alk Phos 114 39 - 136 06/11/2016 [facility] CHEM PANEL ALT 31 0 - 65 06/11/2016 [facility] CHEM PANEL Bili Total 0.2 0.2 - 1.3 06/11/2016 [facility] CHEM PANEL B/C Ratio 22 6 - 25 06/11/2016 [facility] CHEM PANEL Total Protein 9.0 6.4 - 8.4 06/11/2016 [facility] CHEM PANEL Globulin 6.3 2.7 - 4.2 06/11/2016 [facility] CHEM PANEL Calcium Lvl 9.3 8.5 - 10.5 06/11/2016 [facility] CHEM PANEL Albumin Lvl 2.7 3.5 - 5.0 06/11/2016 [facility] CHEM PANEL eGFR 57 06/11/2016 Result Comment: [...] should be multiplied by the estimated BMI. [facility] CHEM PANEL Potassium Lvl 3.9 3.5 - 5.1 06/11/2016 [facility] CHEM PANEL AGAP 16.9 10.0 - 20.0 06/11/2016 [facility] CHEM PANEL Sodium Lvl 140 135 - 145 06/11/2016 [facility] CHEM PANEL Chloride Lvl 103 95 - 109 06/11/2016 [facility] CHEM PANEL CO2 24 24 - 32 06/11/2016 [facility] CHEM PANEL Creatinine Lvl 1.60 0.50 - 1.40 06/11/2016 [facility] CHEM PANEL Glucose Lvl 132 70 - 99 06/11/2016 [facility] CHEM PANEL BUN 36 7 - 22 06/11/2016 [facility] CHEM PANEL Magnesium Lvl 1.9 1.8 - 2.4 06/11/2016 [facility] CHEM PANEL Phosphorus 4.1 2.5 - 4.5 06/11/2016 [facility] HEMATOLOGY RBC 4.16 4.70 - 6.10 06/11/2016 [facility] HEMATOLOGY MCV 79.3 80.0 - 94.0 06/11/2016 [facility] HEMATOLOGY Hgb 10.5 14.0 - 18.0 06/11/2016 [facility] [place] Hct 33.0 42.0 - 54.0 06/11/2016 [facility] [place] WBC 12.5 3.7 - 10.4 06/11/2016 [facility] [place] MCH 25.2 27.0 - 31.0 06/11/2016 [facility] [place] MPV 7.6 7.4 - 10.4 06/11/2016 [facility] [place] RDW 20.1 11.5 - 14.5 06/11/2016 [facility] [place] Platelet 347 133 - 450 06/11/2016 [facility] [place] MCHC 31.8 32.0 - 36.0 06/11/2016 [facility] [place] Microcyte 1+ *ABN* (06/11/16 12:41 AM) None Seen 06/11/2016 [facility] [place] Eosinophils # 0.4 0.0 - 0.5 06/11/2016 [facility] HEMATOLOGY Basophils # 0.1 0.0 - 0.2 06/11/2016 [facility] [place] Monocytes # 1.0 0.0 - 0.8 06/11/2016 [facility] [place] Lymphocytes # 2.2 1.0 - 5.5 06/11/2016 [facility] [place] Segs-Bands # 8.9 1.5 - 8.1 06/11/2016 [facility] HEMATOLOGY Eosinophils 3.3 0.0 - 4.0 06/11/2016 [facility] HEMATOLOGY Basophils 0.5 0.0 - 1.0 06/11/2016 [facility] HEMATOLOGY Lymphocytes 17.3 20.0 - 40.0 06/11/2016 [facility] HEMATOLOGY Monocytes 8.2 2.0 - 12.0 06/11/2016 [facility] HEMATOLOGY Segs 70.7 45.0 - 75.0 06/11/2016 [facility] DRUG SCREEN U Amph Scr Nega tive *NA* (06/10/16 2:59 PM) Negative 06/10/2016 [facility] DRUG SCREEN U Benzodia Scr Posi tive *ABN* (06/10/16 2:59 PM) Negative 06/10/2016 [facility] DRUG SCREEN U Cocaine Scr Nega tive *NA* (06/10/16 2:59 PM) Negative 06/10/2016 [facility] DRUG SCREEN U Chelsie Scr Nega tive *NA* (06/10/16 2:59 PM) Negative 06/10/2016 [facility] DRUG SCREEN U Opiate Scr Nega tive *NA* (06/10/16 2:59 PM) Negative 06/10/2016 [facility] DRUG SCREEN UDS Note See Note (06/10/16 2:59 PM) 06/10/2016 [facility] DRUG SCREEN U Cannab Scr Nega tive *NA* (06/10/16 2:59 PM) Negative 06/10/2016 [facility] DRUG SCREEN U Phencyc Scr Nega tive *NA* (06/10/16 2:59 PM) Negative 06/10/2016 [facility] URINE AND STOOL UA Urobilinogen <=1.0 0.1 - 1.0 06/10/2016 [facility] URINE AND STOOL UA RBC 182 0 - 2 06/10/2016 [facility] URINE AND STOOL UA Sq Epi Few /LPF Few /LPF 06/10/2016 [facility] URINE AND STOOL UA WBC >182 0 - 5 06/10/2016 [facility] URINE AND STOOL UA Leuk Est Large *ABN* (06/10/16 12:59 PM) Negative 06/10/2016 [facility] URINE AND STOOL UA Nitrite Negative (06/10/16 12:59 PM) Negative 06/10/2016 [facility] URINE AND STOOL UA Blood Moderate *ABN* (06/10/16 12:59 PM) Negative 06/10/2016 [facility] URINE AND STOOL UA Bili Negative *NA* (06/10/16 12:59 PM) Negative 06/10/2016 [facility] URINE AND STOOL UA Ketones Negative mg/dL Negative mg/dL 06/10/2016 [facility] URINE AND STOOL UA [place] Yeast Few /HPF None Seen /HPF 06/10/2016 [facility] URINE AND STOOL UA Mucus Few /LPF None Seen /LPF 06/10/2016 [facility] URINE AND STOOL UA Bacteria Occasional /HPF None Seen /HPF 06/10/2016 [facility] URINE AND STOOL UA Protein 30 mg/dL Negative mg/dL 06/10/2016 [facility] URINE AND STOOL UA Spec Grav 1.012 <=1.030 06/10/2016 [facility] URINE AND STOOL UA Glucose Negative mg/dL Negative mg/dL 06/10/2016 [facility] URINE AND STOOL UA pH 6.0 5.0 - 8.0 06/10/2016 [facility] URINE AND STOOL UA Turbidity Clear (06/10/16 12:59 PM) Clear 06/10/2016 [facility] URINE AND STOOL UA Color Yellow *NA* (06/10/16 12:59 PM) Yellow 06/10/2016 [facility] URINE CHEM U Urea 487 06/10/2016 [facility] URINE CHEM U Sodium 84 06/10/2016 [facility] URINE CHEM U Eos 2-5 *ABN* (06/10/16 12:59 PM) None Seen 06/10/2016 [facility] URINE CHEM U Creatinine 46.60 06/10/2016 [facility] URINE CHEM U Chloride 76 06/10/2016 [facility] CHEM PANEL Procalcitonin Lvl 0.20 0.00 - 0.10 06/10/2016 [facility] CHEM PANEL Lactic Acid Lvl 1.1 0.5 - 2.2 06/10/2016 [facility] CHEM PANEL Phosphorus 4.3 2.5 - 4.5 06/10/2016 [facility] CHEM PANEL Globulin 6.3 2.7 - 4.2 06/10/2016 [facility] CHEM PANEL A/G Ratio 0.4 0.7 - 1.6 06/10/2016 [facility] CHEM PANEL B/C Ratio 23 6 - 25 06/10/2016 [facility] CHEM PANEL AGAP 15.7 10.0 - 20.0 06/10/2016 [facility] CHEM PANEL eGFR 61 06/10/2016 Result Comment: [...] should be multiplied by the estimated BMI. [facility] CHEM PANEL Albumin Lvl 2.5 3.5 - 5.0 06/10/2016 [facility] CHEM PANEL ALANINE AMINOTRANSFERASE 30 0 - 65 06/10/2016 [facility] CHEM PANEL CO2 23 24 - 32 06/10/2016 [facility] CHEM PANEL Total Protein 8.8 6.4 - 8.4 06/10/2016 [facility] CHEM PANEL Calcium Lvl 8.8 8.5 - 10.5 06/10/2016 [facility] CHEM PANEL Potassium Lvl 4.7 3.5 - 5.1 06/10/2016 [facility] CHEM PANEL Chloride Lvl 105 95 - 109 06/10/2016 [facility] CHEM PANEL BUN 34 7 - 22 06/10/2016 [facility] CHEM PANEL Creatinine Lvl 1.50 0.50 - 1.40 06/10/2016 [facility] CHEM PANEL Sodium Lvl 139 135 - 145 06/10/2016 [facility] CHEM PANEL Glucose Lvl 97 70 - 99 06/10/2016 [facility] CHEM PANEL Alk Phos 106 39 - 136 06/10/2016 [facility] CHEM PANEL Bili Total 0.2 0.2 - 1.3 06/10/2016 [facility] CHEM PANEL ASPARTATE TRANSAMINASE 36 0 - 37 06/10/2016 [facility] CHEM PANEL Magnesium Lvl 1.8 1.8 - 2.4 06/10/2016 [facility] HEMATOLOGY RBC 4.19 4.70 - 6.10 06/10/2016 [facility] HEMATOLOGY WBC 16.5 3.7 - 10.4 06/10/2016 [facility] HEMATOLOGY MCV 79.3 80.0 - 94.0 06/10/2016 [facility] [place] MCH 25.4 27.0 - 31.0 06/10/2016 [facility] [place] Hgb 10.6 14.0 - 18.0 06/10/2016 [facility] [place] MCHC 32.0 32.0 - 36.0 06/10/2016 [facility] [place] Hct 33.2 42.0 - 54.0 06/10/2016 [facility] [place] MPV 7.7 7.4 - 10.4 06/10/2016 [facility] [place] Platelet 370 133 - 450 06/10/2016 [facility] [place] RDW 20.7 11.5 - 14.5 06/10/2016 [facility] [place] Basophils # 0.2 0.0 - 0.2 06/10/2016 [facility] [place] Microcyte 1+ *ABN* (06/10/16 6:57 AM) None Seen 06/10/2016 [facility] [place] Eosinophils # 0.5 0.0 - 0.5 06/10/2016 [facility] [place] Lymphocytes # 4.2 1.0 - 5.5 06/10/2016 [facility] [place] Monocytes # 1.2 0.0 - 0.8 06/10/2016 [facility] [place] Segs 63.0 45.0 - 75.0 06/10/2016 [facility] [place] Lymphocytes 25.4 20.0 - 40.0 06/10/2016 [facility] [place] Plt Morph Leeann l (06/10/16 6:57 AM) 06/10/2016 [facility] [place] Basophils 1.1 0.0 - 1.0 06/10/2016 [facility] [place] Eosinophils 3.0 0.0 - 4.0 06/10/2016 [facility] [place] Monocytes 7.5 2.0 - 12.0 06/10/2016 [facility] [place] Segs-Bands # 10.4 1.5 - 8.1 06/10/2016 [facility] CHEM PANEL eGFR 80 06/08/2016 Result Comment: [...] should be multiplied by the estimated BMI. [facility] CHEM PANEL ALANINE AMINOTRANSFERASE 31 0 - 65 06/08/2016 [facility] CHEM PANEL Alk Phos 100 39 - 136 06/08/2016 [facility] CHEM PANEL Total Protein 8.3 6.4 - 8.4 06/08/2016 [facility] CHEM PANEL Calcium Lvl 9.4 8.5 - 10.5 06/08/2016 [facility] CHEM PANEL Albumin Lvl 2.4 3.5 - 5.0 06/08/2016 [facility] CHEM PANEL CO2 26 24 - 32 06/08/2016 [facility] CHEM PANEL Chloride Lvl 106 95 - 109 06/08/2016 [facility] CHEM PANEL BUN 23 7 - 22 06/08/2016 [facility] CHEM PANEL Glucose Lvl 96 70 - 99 06/08/2016 [facility] CHEM PANEL Potassium Lvl 4.5 3.5 - 5.1 06/08/2016 [facility] CHEM PANEL Sodium Lvl 140 135 - 145 06/08/2016 [facility] CHEM PANEL Creatinine Lvl 1.20 0.50 - 1.40 06/08/2016 [facility] CHEM PANEL ASPARTATE TRANSAMINASE 29 0 - 37 06/08/2016 [facility] CHEM PANEL Bili Total 0.1 0.2 - 1.3 06/08/2016 [facility] CHEM PANEL A/G Ratio 0.4 0.7 - 1.6 06/08/2016 [facility] CHEM PANEL Globulin 5.9 2.7 - 4.2 06/08/2016 [facility] CHEM PANEL AGAP 12.5 10.0 - 20.0 06/08/2016 [facility] CHEM PANEL B/C Ratio 19 6 - 25 06/08/2016 [facility] CHEM PANEL Magnesium Lvl 1.9 1.8 - 2.4 06/08/2016 [facility] CHEM PANEL Phosphorus 3.7 2.5 - 4.5 06/08/2016 [facility] HEMATOLOGY Platelet 381 133 - 450 06/08/2016 [facility] HEMATOLOGY RDW 19.9 11.5 - 14.5 06/08/2016 [facility] [place] MCHC 32.9 32.0 - 36.0 06/08/2016 [facility] [place] MPV 7.5 7.4 - 10.4 06/08/2016 [facility] [place] RBC 3.75 4.70 - 6.10 06/08/2016 [facility] [place] Hgb 9.9 14.0 - 18.0 06/08/2016 [facility] [place] WBC 7.9 3.7 - 10.4 06/08/2016 [facility] [place] MCH 26.3 27.0 - 31.0 06/08/2016 [facility] [place] MCV 80.0 80.0 - 94.0 06/08/2016 [facility] [place] Hct 30.0 42.0 - 54.0 06/08/2016 [facility] [place] Basophils 0.6 0.0 - 1.0 06/08/2016 [facility] [place] Eosinophils 7.7 0.0 - 4.0 06/08/2016 [facility] [place] Segs 55.4 45.0 - 75.0 06/08/2016 [facility] [place] Monocytes 7.7 2.0 - 12.0 06/08/2016 [facility] [place] Lymphocytes 28.6 20.0 - 40.0 06/08/2016 [facility] [place] Basophils # 0.1 0.0 - 0.2 06/08/2016 [facility] [place] Eosinophils # 0.6 0.0 - 0.5 06/08/2016 [facility] [place] Segs-Bands # 4.4 1.5 - 8.1 06/08/2016 [facility] [place] Monocytes # 0.6 0.0 - 0.8 06/08/2016 [facility] [place] Lymphocytes # 2.3 1.0 - 5.5 06/08/2016 [facility] ANEMIA STUDY Vitamin B12 Lvl 383 254 - 1320 06/05/2016 [facility] ANEMIA STUDY UIBC 217 110 - 370 06/05/2016 [facility] ANEMIA STUDY % [place] Fe 12 12 - 57 06/05/2016 [facility] ANEMIA STUDY Iron 30 45 - 160 06/05/2016 [facility] ANEMIA STUDY TIBC 247 228 - 428 06/05/2016 [facility] ANEMIA STUDY Ferritin Lvl 175 22 - 275 06/05/2016 [facility] [place] Plt Morph Leeann l (06/02/16 5:59 AM) 06/02/2016 [facility] [place] RBC Morph Leeann l (06/02/16 5:59 AM) 06/02/2016 [facility] HEMATOLOGY PTT 40.4 22.9 - 35.8 06/01/2016 [facility] HEMATOLOGY PT 15.1 12.0 - 14.7 06/01/2016 [facility] HEMATOLOGY INR 1.17 0.85 - 1.17 06/01/2016 [facility] CHEM PANEL Lactic Acid Lvl 1.0 0.5 - 2.2 06/01/2016 [facility] HEMATOLOGY Anisocyte 1+ *ABN* (06/01/16 1:39 PM) None Seen 06/01/2016 [facility] URINE AND STOOL UA Bacteria Few /HPF None Seen /HPF 06/01/2016 [facility] URINE AND STOOL UA Mucus Few /LPF None Seen /LPF 06/01/2016 [facility] URINE AND STOOL UA Hyph Yeast Moderate /HPF 06/01/2016 [facility] URINE AND STOOL UA [place] Yeast Occasional /HPF None Seen /HPF 06/01/2016 [facility] URINE AND STOOL UA RBC 11-20 /HPF 0 - 2 06/01/2016 [facility] URINE AND STOOL UA WBC >100 /HPF None Seen /HPF 06/01/2016 [facility] URINE AND STOOL UA Sq Epi Moderate /LPF Few /LPF 06/01/2016 [facility] URINE AND STOOL UA Urobilinogen 0.2 0.1 - 1.0 06/01/2016 [facility] URINE AND STOOL UA Nitrite Negative (06/01/16 1:39 PM) Negative 06/01/2016 [facility] URINE AND STOOL UA Leuk Est Large *ABN* (06/01/16 1:39 PM) Negative 06/01/2016 [facility] URINE AND STOOL UA Bili Negative *NA* (06/01/16 1:39 PM) Negative 06/01/2016 [facility] URINE AND STOOL UA Blood Moderate *ABN* (06/01/16 1:39 PM) Negative 06/01/2016 [facility] URINE AND STOOL UA Protein Trace *ABN* (06/01/16 1:39 PM) Negative 06/01/2016 [facility] URINE AND STOOL UA Glucose Negative (06/01/16 1:39 PM) Negative 06/01/2016 [facility] URINE AND STOOL UA Ketones Negative *NA* (06/01/16 1:39 PM) Negative 06/01/2016 [facility] URINE AND STOOL UA pH 7.0 5.0 - 8.0 06/01/2016 [facility] URINE AND STOOL UA Spec Grav 1.010 <=1.030 06/01/2016 [facility] URINE AND STOOL UA Turbidity Slight Cloudy (06/01/16 1:39 PM) Clear 06/01/2016 [facility] URINE AND STOOL UA Color Yellow *NA* (06/01/16 1:39 PM) Yellow 06/01/2016 [facility] CHEM PANEL Procalcitonin Lvl 0.10 0.00 - 0.10 06/01/2016 [facility] CHEM PANEL eGFR 30 01/13/2016 Result Comment: [...] should be multiplied by the estimated BMI. [facility] CHEM PANEL Glucose Lvl 102 70 - 99 01/13/2016 [facility] CHEM PANEL BUN 36 7 - 22 01/13/2016 [facility] CHEM PANEL Creatinine Lvl 2.74 0.50 - 1.40 01/13/2016 [facility] CHEM PANEL Sodium Lvl 136 135 - 145 01/13/2016 [facility] CHEM PANEL AGAP 16.1 10.0 - 20.0 01/13/2016 [facility] CHEM PANEL Potassium Lvl 5.1 3.5 - 5.1 01/13/2016 [facility] CHEM PANEL Chloride Lvl 104 95 - 109 01/13/2016 [facility] CHEM PANEL CO2 21 24 - 32 01/13/2016 [facility] CHEM PANEL Calcium Lvl 10.0 8.5 - 10.5 01/13/2016 [facility] CHEM PANEL Glucose Lvl 103 70 - 99 01/13/2016 [facility] CHEM PANEL BUN 34 7 - 22 01/13/2016 [facility] CHEM PANEL Sodium Lvl 137 135 - 145 01/13/2016 [facility] CHEM PANEL Creatinine Lvl 2.78 0.50 - 1.40 01/13/2016 [facility] CHEM PANEL eGFR 29 01/13/2016 Result Comment: [...] should be multiplied by the estimated BMI. [facility] CHEM PANEL AGAP 14.8 10.0 - 20.0 01/13/2016 [facility] CHEM PANEL Calcium Lvl 9.7 8.5 - 10.5 01/13/2016 [facility] CHEM PANEL CO2 24 24 - 32 01/13/2016 [facility] CHEM PANEL Chloride Lvl 104 95 - 109 01/13/2016 [facility] CHEM PANEL Potassium Lvl 5.8 3.5 - 5.1 01/13/2016 [facility] CHEM PANEL Magnesium Lvl 1.6 1.8 - 2.4 01/12/2016 [facility] CHEM PANEL Phosphorus 3.9 2.5 - 4.5 01/12/2016 [facility] ELECTROLYTES AGAP 13.0 10.0 - 20.0 01/12/2016 [facility] ELECTROLYTES BUN 34 7 - 22 01/12/2016 [facility] ELECTROLYTES Glucose Lvl 105 70 - 99 01/12/2016 [facility] ELECTROLYTES Creatinine Lvl 3.0 0 0.50 - 1.40 01/12/2016 [facility] ELECTROLYTES Sodium Lvl 138 135 - 145 01/12/2016 [facility] ELECTROLYTES Potassium Lvl 5.0 3.5 - 5.1 01/12/2016 [facility] ELECTROLYTES Calcium Lvl 9.8 8.5 - 10.5 01/12/2016 [facility] ELECTROLYTES eGFR 27 01/12/2016 Result Comment: The [...] should be multiplied by the estimated BMI. [facility] ELECTROLYTES CO2 20 24 - 32 01/12/2016 [facility] ELECTROLYTES Chloride Lvl 110 95 - 109 01/12/2016 [facility] HEMATOLOGY Platelet 349 133 - 450 01/12/2016 [facility] HEMATOLOGY MPV 7.6 7.4 - 10.4 01/12/2016 [facility] HEMATOLOGY RDW 18.2 11.5 - 14.5 01/12/2016 [facility] HEMATOLOGY MCHC 31.8 32.0 - 36.0 01/12/2016 [facility] HEMATOLOGY MCH 27.0 27.0 - 31.0 01/12/2016 [facility] HEMATOLOGY MCV 84.8 80.0 - 94.0 01/12/2016 [facility] HEMATOLOGY Hct 29.9 42.0 - 54.0 01/12/2016 [facility] HEMATOLOGY Hgb 9.5 14.0 - 18.0 01/12/2016 [facility] HEMATOLOGY RBC 3.52 4.70 - 6.10 01/12/2016 [facility] HEMATOLOGY WBC 8.4 3.7 - 10.4 01/12/2016 [facility] HEMATOLOGY Lymphocytes 34.8 20.0 - 40.0 01/12/2016 [facility] HEMATOLOGY Segs 50.7 45.0 - 75.0 01/12/2016 [facility] HEMATOLOGY Basophils # 0.1 0.0 - 0.2 01/12/2016 [facility] HEMATOLOGY Eosinophils # 0.4 0.0 - 0.5 01/12/2016 [facility] HEMATOLOGY Monocytes # 0.7 0.0 - 0.8 01/12/2016 [facility] HEMATOLOGY Lymphocytes # 2.9 1.0 - 5.5 01/12/2016 [facility] HEMATOLOGY Segs-Bands # 4.3 1.5 - 8.1 01/12/2016 [facility] HEMATOLOGY Basophils 1.2 0.0 - 1.0 01/12/2016 [facility] HEMATOLOGY Eosinophils 4.6 0.0 - 4.0 01/12/2016 [facility] HEMATOLOGY Monocytes 8.7 2.0 - 12.0 01/12/2016 [facility] PARATHYROID PROFILE Ca Ion WB 1.33 1.05 - 1.25 01/12/2016 [facility] PARATHYROID PROFILE Ca Norm WB 1.24 1.05 - 1.25 01/12/2016 [facility] CHEM PANEL Phosphorus 5.5 2.5 - 4.5 01/11/2016 [facility] CHEM PANEL Magnesium Lvl 1.7 1.8 - 2.4 01/11/2016 [facility] CHEM PANEL eGFR 21 01/11/2016 Result Comment: [...] should be multiplied by the estimated BMI. [facility] CHEM PANEL Potassium Lvl 5.5 3.5 - 5.1 01/11/2016 [facility] CHEM PANEL Sodium Lvl 140 135 - 145 01/11/2016 [facility] CHEM PANEL Chloride Lvl 109 95 - 109 01/11/2016 [facility] CHEM PANEL CO2 21 24 - 32 01/11/2016 [facility] CHEM PANEL Calcium Lvl 9.4 8.5 - 10.5 01/11/2016 [facility] CHEM PANEL AGAP 15.5 10.0 - 20.0 01/11/2016 [facility] CHEM PANEL Glucose Lvl 81 70 - 99 01/11/2016 [facility] CHEM PANEL Creatinine Lvl 3.71 0.50 - 1.40 01/11/2016 [facility] CHEM PANEL BUN 42 7 - 22 01/11/2016 [facility] HEMATOLOGY MPV 8.3 7.4 - 10.4 01/11/2016 [facility] HEMATOLOGY Platelet 339 133 - 450 01/11/2016 [facility] HEMATOLOGY MCH 27.5 27.0 - 31.0 01/11/2016 [facility] HEMATOLOGY MCV 89.6 80.0 - 94.0 01/11/2016 [facility] HEMATOLOGY Hct 34.7 42.0 - 54.0 01/11/2016 [facility] HEMATOLOGY RDW 19.0 11.5 - 14.5 01/11/2016 [facility] HEMATOLOGY MCHC 30.7 32.0 - 36.0 01/11/2016 [facility] HEMATOLOGY WBC 10.4 3.7 - 10.4 01/11/2016 [facility] HEMATOLOGY RBC 3.87 4.70 - 6.10 01/11/2016 [facility] HEMATOLOGY Hgb 10.7 14.0 - 18.0 01/11/2016 [facility] HEMATOLOGY Monocytes # 0.9 0.0 - 0.8 01/11/2016 [facility] HEMATOLOGY Lymphocytes # 2.5 1.0 - 5.5 01/11/2016 [facility] HEMATOLOGY Segs-Bands # 6.3 1.5 - 8.1 01/11/2016 [facility] HEMATOLOGY Basophils 1.0 0.0 - 1.0 01/11/2016 [facility] HEMATOLOGY Eosinophils 5.0 0.0 - 4.0 01/11/2016 [facility] HEMATOLOGY Basophils # 0.1 0.0 - 0.2 01/11/2016 [facility] HEMATOLOGY Eosinophils # 0.5 0.0 - 0.5 01/11/2016 [facility] HEMATOLOGY Monocytes 8.8 2.0 - 12.0 01/11/2016 [facility] HEMATOLOGY Lymphocytes 24.6 20.0 - 40.0 01/11/2016 [facility] HEMATOLOGY Segs 60.6 45.0 - 75.0 01/11/2016 [facility] PARATHYROID PROFILE Ca Ion WB 1.00 1.05 - 1.25 01/11/2016 [facility] PARATHYROID PROFILE Ca Norm WB 0.97 1.05 - 1.25 01/11/2016 [facility] DRUG SCREEN U Benzodia Scr Posi tive *ABN* (01/10/16 12:16 PM) Negative 01/10/2016 [facility] DRUG SCREEN U Chelsie Scr Nega tive *NA* (01/10/16 12:16 PM) Negative 01/10/2016 [facility] DRUG SCREEN U Cocaine Scr Nega tive *NA* (01/10/16 12:16 PM) Negative 01/10/2016 [facility] DRUG SCREEN U Phencyc Scr Nega tive *NA* (01/10/16 12:16 PM) Negative 01/10/2016 [facility] DRUG SCREEN U Methadone Scr Nega tive *NA* (01/10/16 12:16 PM) Negative 01/10/2016 [facility] DRUG SCREEN U Propoxyph Scr Nega tive *NA* (01/10/16 12:16 PM) Negative 01/10/2016 [facility] DRUG SCREEN U Cannab Scr Posi tive *ABN* (01/10/16 12:16 PM) Negative 01/10/2016 [facility] DRUG SCREEN U Opiate Scr Posi tive *ABN* (01/10/16 12:16 PM) Negative 01/10/2016 [facility] DRUG SCREEN UDS Note See Note (01/10/16 12:16 PM) 01/10/2016 [facility] [facility] DRUG SCREEN U Amph Scr Nega tive *NA* (01/10/16 12:16 PM) Negative 01/10/2016 [facility] CARDIAC ENZYMES Total CK 191 12 - 191 01/10/2016 [facility] CHEM PANEL Magnesium Lvl 1.8 1.8 - 2.4 01/10/2016 [facility] CHEM PANEL eGFR 19 01/10/2016 Result Comment: [...] should be multiplied by the estimated BMI. [facility] CHEM PANEL Potassium Lvl 4.9 3.5 - 5.1 01/10/2016 [facility] CHEM PANEL Sodium Lvl 140 135 - 145 01/10/2016 [facility] CHEM PANEL Creatinine Lvl 3.92 0.50 - 1.40 01/10/2016 [facility] CHEM PANEL BUN 45 7 - 22 01/10/2016 [facility] CHEM PANEL Glucose Lvl 60 70 - 99 01/10/2016 [facility] CHEM PANEL CO2 21 24 - 32 01/10/2016 [facility] CHEM PANEL Chloride Lvl 108 95 - 109 01/10/2016 [facility] CHEM PANEL Calcium Lvl 9.6 8.5 - 10.5 01/10/2016 [facility] CHEM PANEL AGAP 15.9 10.0 - 20.0 01/10/2016 [facility] CHEM PANEL Phosphorus 5.7 2.5 - 4.5 01/10/2016 [facility] HEMATOLOGY WBC 6.4 3.7 - 10.4 01/10/2016 [facility] HEMATOLOGY RBC 3.80 4.70 - 6.10 01/10/2016 [facility] HEMATOLOGY Platelet 389 133 - 450 01/10/2016 [facility] HEMATOLOGY MPV 7.3 7.4 - 10.4 01/10/2016 [facility] HEMATOLOGY RDW 18.5 11.5 - 14.5 01/10/2016 [facility] HEMATOLOGY MCHC 31.7 32.0 - 36.0 01/10/2016 [facility] HEMATOLOGY MCH 26.9 27.0 - 31.0 01/10/2016 [facility] HEMATOLOGY Hct 32.2 42.0 - 54.0 01/10/2016 [facility] HEMATOLOGY Hgb 10.2 14.0 - 18.0 01/10/2016 [facility] HEMATOLOGY MCV 84.6 80.0 - 94.0 01/10/2016 [facility] HEMATOLOGY Eosinophils # 0.4 0.0 - 0.5 01/10/2016 [facility] HEMATOLOGY Monocytes # 0.8 0.0 - 0.8 01/10/2016 [facility] HEMATOLOGY Lymphocytes # 2.0 1.0 - 5.5 01/10/2016 [facility] HEMATOLOGY Segs-Bands # 3.2 1.5 - 8.1 01/10/2016 [facility] HEMATOLOGY Basophils 1.4 0.0 - 1.0 01/10/2016 [facility] HEMATOLOGY Eosinophils 5.9 0.0 - 4.0 01/10/2016 [facility] HEMATOLOGY Monocytes 12.0 2.0 - 12.0 01/10/2016 [facility] HEMATOLOGY Basophils # 0.1 0.0 - 0.2 01/10/2016 [facility] HEMATOLOGY Lymphocytes 31.5 20.0 - 40.0 01/10/2016 [facility] HEMATOLOGY Segs 49.2 45.0 - 75.0 01/10/2016 [facility] HEMATOLOGY PTT 28.7 22.9 - 35.8 01/09/2016 [facility] PARATHYROID PROFILE Ca Norm WB 1.19 1.05 - 1.25 01/09/2016 [facility] PARATHYROID PROFILE Ca Ion WB 1.25 1.05 - 1.25 01/09/2016 [facility] IMMUNOLOGY C4 Complement 47 16 - 47 01/09/2016 [facility] IMMUNOLOGY C3 Complement 184 88 - 201 01/09/2016 [facility] MOLECULAR DIAGNOSTIC HCV RNA Log10 6.2 01/09/2016 [facility] MOLECULAR DIAGNOSTIC HCV RNA VirLoad [id number] 01/09/2016 [facility] DRUG SCREEN U Benzodia Scr Posi tive *ABN* (01/08/16 9:26 PM) Negative 01/09/2016 [facility] DRUG SCREEN U Cocaine Scr Nega tive *NA* (01/08/16 9:26 PM) Negative 01/09/2016 [facility] DRUG SCREEN U Cannab Scr Posi tive *ABN* (01/08/16 9:26 PM) Negative 01/09/2016 [facility] DRUG SCREEN U Opiate Scr Posi tive *ABN* (01/08/16 9:26 PM) Negative 01/09/2016 [facility] DRUG SCREEN UDS Note See Note (01/08/16 9:26 PM) 01/09/2016 [facility] DRUG SCREEN U Phencyc Scr Nega tive *NA* (01/08/16 9:26 PM) Negative 01/09/2016 [facility] DRUG SCREEN U Chelsie Scr Nega tive *NA* (01/08/16 9:26 PM) Negative 01/09/2016 [facility] DRUG SCREEN U Amph Scr Nega tive *NA* (01/08/16 9:26 PM) Negative 01/09/2016 [facility] URINE CHEM U Eos 0-2 *ABN* (01/08/16 6:30 PM) None Seen 01/08/2016 [facility] URINE CHEM U Creatinine 30.40 01/08/2016 [facility] URINE CHEM U Protein 108.5 01/08/2016 [facility] URINE CHEM U Prot/Creat 3.6 01/08/2016 [facility] URINE AND STOOL Micro? Performed *NA* (01/08/16 2:47 PM) 01/08/2016 [facility] URINE AND STOOL UA Amorph Michelle Occasional /HPF None Seen /HPF 01/08/2016 [facility] URINE AND STOOL UA Mucus Few /LPF None Seen /LPF 01/08/2016 [facility] URINE AND STOOL UA Leuk Est Large *ABN* (01/08/16 2:47 PM) Negative 01/08/2016 [facility] URINE AND STOOL UA Nitrite Negative (01/08/16 2:47 PM) Negative 01/08/2016 [facility] URINE AND STOOL UA WBC 41 0 - 5 01/08/2016 [facility] URINE AND STOOL UA RBC 4 0 - 2 01/08/2016 [facility] URINE AND STOOL UA Bacteria Moderate /HPF None Seen /HPF 01/08/2016 [facility] URINE AND STOOL UA Color Light Yellow *NA* (01/08/16 2:47 PM) Yellow 01/08/2016 [facility] URINE AND STOOL UA Turbidity Slight *ABN* (01/08/16 2:47 PM) Clear 01/08/2016 [facility] URINE AND STOOL UA Ketones Negative mg/dL Negative mg/dL 01/08/2016 [facility] URINE AND STOOL UA Blood Moderate *ABN* (01/08/16 2:47 PM) Negative 01/08/2016 [facility] URINE AND STOOL UA pH 7.5 5.0 - 8.0 01/08/2016 [facility] URINE AND STOOL UA Bili Negative *NA* (01/08/16 2:47 PM) Negative 01/08/2016 [facility] URINE AND STOOL UA Glucose Negative mg/dL Negative mg/dL 01/08/2016 [facility] URINE AND STOOL UA Protein 70 mg/dL Negative mg/dL 01/08/2016 [facility] URINE AND STOOL UA Spec Grav 1.009 <=1.030 01/08/2016 [facility] URINE AND STOOL UA Sq Epi RARE 01/08/2016 [facility] URINE AND STOOL UA Urobilinogen <=1.0 mg/dL 0.1 - 1.0 01/08/2016 [facility] URINE CHEM U Sodium 69 01/08/2016 [facility] URINE CHEM U Potassium 27.5 01/08/2016 [facility] URINE CHEM U Chloride 66 01/08/2016 [facility] DRUG SCREEN U Cocaine Scr Nega tive *NA* (01/07/16 12:25 PM) Negative 01/07/2016 [facility] DRUG SCREEN U Benzodia Scr Posi tive *ABN* (01/07/16 12:25 PM) Negative 01/07/2016 [facility] DRUG SCREEN U Chelsie Scr Nega tive *NA* (01/07/16 12:25 PM) Negative 01/07/2016 [facility] DRUG SCREEN U Amph Scr Nega tive *NA* (01/07/16 12:25 PM) Negative 01/07/2016 [facility] DRUG SCREEN U Phencyc Scr Nega tive *NA* (01/07/16 12:25 PM) Negative 01/07/2016 [facility] DRUG SCREEN U Opiate Scr Posi tive *ABN* (01/07/16 12:25 PM) Negative 01/07/2016 [facility] DRUG SCREEN UDS Note See Note (01/07/16 12:25 PM) 01/07/2016 [facility] DRUG SCREEN U Cannab Scr Posi tive *ABN* (01/07/16 12:25 PM) Negative 01/07/2016 [facility] IMMUNOLOGY HIV Ag/Ab 4th Gen Negat pavel *NA* (01/04/16 10:20 AM) Negative 01/04/2016 [facility] BLOOD BANK RESULTS Antibody Scrn Negative (01/04/16 5:29 AM) 01/04/2016 [facility] BLOOD BANK RESULTS ABO/Rh A POS 01/04/2016 [facility] HEMATOLOGY INR 1.02 0.85 - 1.17 01/04/2016 [facility] HEMATOLOGY PTT 35.0 22.9 - 35.8 01/04/2016 [facility] HEMATOLOGY PT 13.7 12.0 - 14.7 01/04/2016 [facility] HEMATOLOGY PTT 35.1 22.9 - 35.8 01/02/2016 [facility] HEMATOLOGY PT 14.3 12.0 - 14.7 01/02/2016 [facility] HEMATOLOGY INR 1.08 0.85 - 1.17 01/02/2016 [facility] CHEM PANEL A/G Ratio 0.4 0.7 - 1.6 01/01/2016 [facility] CHEM PANEL Globulin 4.4 2.0 - 4.0 01/01/2016 [facility] CHEM PANEL B/C Ratio 9 6 - 25 01/01/2016 [facility] CHEM PANEL Bili Total 0.1 0.2 - 1.3 01/01/2016 [facility] CHEM PANEL Alk Phos 63 39 - 136 01/01/2016 [facility] CHEM PANEL AST 23 0 - 37 01/01/2016 [facility] CHEM PANEL ALT 20 0 - 65 01/01/2016 [facility] CHEM PANEL Albumin Lvl 1.9 3.5 - 5.0 01/01/2016 [facility] CHEM PANEL Total Protein 6.3 6.4 - 8.4 01/01/2016 [facility] HEMATOLOGY INR 1.14 0.85 - 1.17 01/01/2016 [facility] HEMATOLOGY PT 14.9 12.0 - 14.7 01/01/2016 [facility] IMMUNOLOGY HIV 1/2 Ab Negat pavel *NA* (01/01/16 1:52 AM) Negative 01/01/2016 [facility] HEMATOLOGY Sed Rate >100 mm/hr 0 - 15 01/01/2016 [facility] IMMUNOLOGY C-REACTIVE PROTEIN 97.9 <=2.9 mg/L 01/01/2016 [facility] URINE AND STOOL UA Bacteria Many /HPF None Seen /HPF 01/01/2016 [facility] URINE AND STOOL UA RBC 11-20 /HPF 0 - 2 01/01/2016 [facility] URINE AND STOOL UA WBC Packed *ABN* (12/31/15 8:46 PM) None Seen 01/01/2016 [facility] URINE AND STOOL UA Sq Epi Occasional /LPF Few /LPF 01/01/2016 [facility] URINE AND STOOL UA Bili Negative *NA* (12/31/15 8:46 PM) Negative 01/01/2016 [facility] URINE AND STOOL UA Ketones Negative *NA* (12/31/15 8:46 PM) Negative 01/01/2016 [facility] URINE AND STOOL UA Blood Moderate *ABN* (12/31/15 8:46 PM) Negative 01/01/2016 [facility] URINE AND STOOL UA Urobilinogen 0.2 0.1 - 1.0 01/01/2016 [facility] URINE AND STOOL UA Nitrite Positive *ABN* (12/31/15 8:46 PM) Negative 01/01/2016 [facility] URINE AND STOOL UA Leuk Est Large *ABN* (12/31/15 8:46 PM) Negative 01/01/2016 [facility] URINE AND STOOL UA Glucose Negative (12/31/15 8:46 PM) Negative 01/01/2016 [facility] URINE AND STOOL UA Color Yellow *NA* (12/31/15 8:46 PM) Yellow 01/01/2016 [facility] URINE AND STOOL UA Turbidity Cloudy *ABN* (12/31/15 8:46 PM) Clear 01/01/2016 [facility] URINE AND STOOL UA Spec Grav 1.020 <=1.030 01/01/2016 [facility] URINE AND STOOL UA pH 6.0 5.0 - 8.0 01/01/2016 [facility] URINE AND STOOL UA Protein 100 mg/dL Negative mg/dL 01/01/2016 [facility] CHEM PANEL Lactic Acid Lvl 0.4 0.5 - 2.2 01/01/2016 [facility] CHEM PANEL Procalcitonin Lvl 0.06 0.00 - 0.10 01/01/2016 [facility] CHEM PANEL Magnesium Lvl 1.6 1.8 - 2.4 10/20/2015 [facility] CHEM PANEL Globulin 6.2 2.0 - 4.0 10/20/2015 [facility] CHEM PANEL B/C Ratio 15 6 - 25 10/20/2015 [facility] CHEM PANEL AGAP 14.5 10.0 - 20.0 10/20/2015 [facility] CHEM PANEL A/G Ratio 0.4 0.7 - 1.6 10/20/2015 [facility] CHEM PANEL eGFR 90 10/20/2015 Result Comment: [...] should be multiplied by the estimated BMI. [facility] CHEM PANEL Chloride Lvl 109 95 - 109 10/20/2015 [facility] CHEM PANEL CO2 21 24 - 32 10/20/2015 [facility] CHEM PANEL Calcium Lvl 8.8 8.5 - 10.5 10/20/2015 [facility] CHEM PANEL Total Protein 8.5 6.4 - 8.4 10/20/2015 [facility] CHEM PANEL Albumin Lvl 2.3 3.5 - 5.0 10/20/2015 [facility] CHEM PANEL Alk Phos 122 39 - 136 10/20/2015 [facility] CHEM PANEL ASPARTATE TRANSAMINASE 25 0 - 37 10/20/2015 [facility] CHEM PANEL ALANINE AMINOTRANSFERASE 29 0 - 65 10/20/2015 [facility] CHEM PANEL Creatinine Lvl 1.10 0.50 - 1.40 10/20/2015 [facility] CHEM PANEL Glucose Lvl 87 70 - 99 10/20/2015 [facility] CHEM PANEL BUN 16 7 - 22 10/20/2015 [facility] CHEM PANEL Sodium Lvl 140 135 - 145 10/20/2015 [facility] CHEM PANEL Potassium Lvl 4.5 3.5 - 5.1 10/20/2015 [facility] CHEM PANEL Bili Total 0.2 0.2 - 1.3 10/20/2015 [facility] HEMATOLOGY Monocytes # 0.9 0.0 - 0.8 10/20/2015 [facility] HEMATOLOGY Basophils 1.3 0.0 - 1.0 10/20/2015 [facility] Eosinophils 1.6 0.0 - 4.0 10/20/2015 [facility] [place] Basophils # 0.1 0.0 - 0.2 10/20/2015 [facility] HEMATOLOGY Eosinophils # 0.1 0.0 - 0.5 10/20/2015 [facility] [place] Lymphocytes # 2.0 1.0 - 5.5 10/20/2015 [facility] [place] Segs-Bands # 5.0 1.5 - 8.1 10/20/2015 [facility] [place] Monocytes 11.1 2.0 - 12.0 10/20/2015 [facility] [place] Lymphocytes 24.8 20.0 - 40.0 10/20/2015 [facility] [place] Segs 61.2 45.0 - 75.0 10/20/2015 [facility] [place] PTT 37.1 22.9 - 35.8 10/20/2015 [facility] [place] INR 1.15 0.85 - 1.17 10/20/2015 [facility] HEMATOLOGY PT 15.0 12.0 - 14.7 10/20/2015 [facility] [place] MCH 29.0 27.0 - 31.0 10/20/2015 [facility] [place] MPV 7.8 7.4 - 10.4 10/20/2015 [facility] [place] RBC 3.01 4.70 - 6.10 10/20/2015 [facility] [place] Hgb 8.8 14.0 - 18.0 10/20/2015 [facility] [place] RDW 21.5 11.5 - 14.5 10/20/2015 [facility] HEMATOLOGY MCHC 32.1 32.0 - 36.0 10/20/2015 [facility] HEMATOLOGY WBC 8.2 3.7 - 10.4 10/20/2015 [facility] HEMATOLOGY MCV 90.6 80.0 - 94.0 10/20/2015 [facility] HEMATOLOGY Hct 27.3 42.0 - 54.0 10/20/2015 [facility] HEMATOLOGY Platelet 550 133 - 450 10/20/2015 [facility] CARDIAC ENZYMES Troponin-I 0.03 0.00 - 0.40 10/19/2015 [facility] CARDIAC ENZYMES CK MB 1.6 0.5 - 3.6 10/19/2015 [facility] CARDIAC ENZYMES CK MB 1.5 0.5 - 3.6 10/19/2015 [facility] CARDIAC ENZYMES Troponin-I 0.03 0.00 - 0.40 10/19/2015 [facility] CHEM PANEL eGFR 79 10/19/2015 Result Comment: [...] should be multiplied by the estimated BMI. [facility] CHEM PANEL B/C Ratio 18 6 - 25 10/19/2015 [facility] CHEM PANEL A/G Ratio 0.4 0.7 - 1.6 10/19/2015 [facility] CHEM PANEL ALT 30 0 - 65 10/19/2015 [facility] CHEM PANEL Alk Phos 116 39 - 136 10/19/2015 [facility] CHEM PANEL AST 21 0 - 37 10/19/2015 [facility] CHEM PANEL Globulin 6.0 2.0 - 4.0 10/19/2015 [facility] CHEM PANEL Bili Total 0.2 0.2 - 1.3 10/19/2015 [facility] CHEM PANEL Total Protein 8.1 6.4 - 8.4 10/19/2015 [facility] CHEM PANEL Albumin Lvl 2.1 3.5 - 5.0 10/19/2015 [facility] CHEM PANEL AGAP 8.8 10.0 - 20.0 10/19/2015 [facility] CHEM PANEL BUN 22 7 - 22 10/19/2015 [facility] CHEM PANEL Calcium Lvl 8.9 8.5 - 10.5 10/19/2015 [facility] CHEM PANEL Creatinine Lvl 1.22 0.50 - 1.40 10/19/2015 [facility] CHEM PANEL Potassium Lvl 4.8 3.5 - 5.1 10/19/2015 [facility] CHEM PANEL Chloride Lvl 106 95 - 109 10/19/2015 [facility] CHEM PANEL Sodium Lvl 137 135 - 145 10/19/2015 [facility] CHEM PANEL CO2 27 24 - 32 10/19/2015 [facility] CHEM PANEL Glucose Lvl 114 70 - 99 10/19/2015 [facility] CHEM PANEL Magnesium Lvl 1.3 1.8 - 2.4 10/19/2015 [facility] HEMATOLOGY INR 1.07 0.85 - 1.17 10/19/2015 [facility] HEMATOLOGY PT 14.2 12.0 - 14.7 10/19/2015 [facility] HEMATOLOGY PTT 36.0 22.9 - 35.8 10/19/2015 [facility] DRUG SCREEN U Amph Scr Nega tive *NA* (10/19/15 1:36 AM) Negative 10/19/2015 [facility] DRUG SCREEN UDS Note See Note (10/19/15 1:36 AM) 10/19/2015 [facility] DRUG SCREEN U Opiate Scr Posi tive *ABN* (10/19/15 1:36 AM) Negative 10/19/2015 [facility] DRUG SCREEN U Phencyc Scr Nega tive *NA* (10/19/15 1:36 AM) Negative 10/19/2015 [facility] DRUG SCREEN U Cocaine Scr Nega tive *NA* (10/19/15 1:36 AM) Negative 10/19/2015 [facility] DRUG SCREEN U Cannab Scr Posi tive *ABN* (10/19/15 1:36 AM) Negative 10/19/2015 [facility] DRUG SCREEN U Benzodia Scr Posi tive *ABN* (10/19/15 1:36 AM) Negative 10/19/2015 [facility] DRUG SCREEN U Chelsie Scr Nega tive *NA* (10/19/15 1:36 AM) Negative 10/19/2015 [facility] CHEM PANEL eGFR 62 10/18/2015 Result Comment: [...] should be multiplied by the estimated BMI. [facility] CHEM PANEL Chloride Lvl 108 95 - 109 10/18/2015 [facility] CHEM PANEL Potassium Lvl 4.8 3.5 - 5.1 10/18/2015 [facility] CHEM PANEL Sodium Lvl 138 135 - 145 10/18/2015 [facility] CHEM PANEL CO2 23 24 - 32 10/18/2015 [facility] CHEM PANEL Creatinine Lvl 1.50 0.50 - 1.40 10/18/2015 [facility] CHEM PANEL Calcium Lvl 8.9 8.5 - 10.5 10/18/2015 [facility] CHEM PANEL AGAP 11.8 10.0 - 20.0 10/18/2015 [facility] CHEM PANEL BUN 23 7 - 22 10/18/2015 [facility] CHEM PANEL Glucose Lvl 104 70 - 99 10/18/2015 [facility] CHEM PANEL eGFR 62 10/17/2015 Result Comment: [...] should be multiplied by the estimated BMI. [facility] CHEM PANEL Glucose Lvl 97 70 - 99 10/17/2015 [facility] CHEM PANEL CO2 21 24 - 32 10/17/2015 [facility] CHEM PANEL BUN 23 7 - 22 10/17/2015 [facility] CHEM PANEL Creatinine Lvl 1.50 0.50 - 1.40 10/17/2015 [facility] CHEM PANEL Potassium Lvl 5.0 3.5 - 5.1 10/17/2015 [facility] CHEM PANEL Sodium Lvl 138 135 - 145 10/17/2015 [facility] CHEM PANEL Chloride Lvl 108 95 - 109 10/17/2015 [facility] CHEM PANEL Calcium Lvl 8.4 8.5 - 10.5 10/17/2015 [facility] CHEM PANEL AGAP 14.0 10.0 - 20.0 10/17/2015 [facility] HEMATOLOGY MPV 8.0 7.4 - 10.4 10/17/2015 [facility] [place] RDW 22.3 11.5 - 14.5 10/17/2015 [facility] [place] Platelet 525 133 - 450 10/17/2015 [facility] [place] Hgb 8.6 14.0 - 18.0 10/17/2015 [facility] [place] WBC 9.8 3.7 - 10.4 10/17/2015 [facility] [place] RBC 2.89 4.70 - 6.10 10/17/2015 [facility] [place] Hct 26.3 42.0 - 54.0 10/17/2015 [facility] [place] MCHC 32.7 32.0 - 36.0 10/17/2015 [facility] [place] MCV 91.0 80.0 - 94.0 10/17/2015 [facility] [place] MCH 29.8 27.0 - 31.0 10/17/2015 [facility] [place] Segs-Bands # 6.6 1.5 - 8.1 10/17/2015 [facility] [place] Monocytes # 0.8 0.0 - 0.8 10/17/2015 [facility] [place] Lymphocytes # 2.0 1.0 - 5.5 10/17/2015 [facility] HEMATOLOGY Eosinophils # 0.2 0.0 - 0.5 10/17/2015 [facility] HEMATOLOGY Basophils # 0.1 0.0 - 0.2 10/17/2015 [facility] HEMATOLOGY Segs 67.4 45.0 - 75.0 10/17/2015 [facility] HEMATOLOGY Eosinophils 2.4 0.0 - 4.0 10/17/2015 [facility] HEMATOLOGY Lymphocytes 20.7 20.0 - 40.0 10/17/2015 [facility] HEMATOLOGY Monocytes 8.5 2.0 - 12.0 10/17/2015 [facility] HEMATOLOGY Basophils 1.0 0.0 - 1.0 10/17/2015 [facility] ELECTROLYTES AGAP 15.5 10.0 - 20.0 10/16/2015 [facility] ELECTROLYTES eGFR 67 10/16/2015 Result Comment: The [...] should be multiplied by the estimated BMI. [facility] ELECTROLYTES Sodium Lvl 141 135 - 145 10/16/2015 [facility] ELECTROLYTES Potassium Lvl 4.5 3.5 - 5.1 10/16/2015 [facility] ELECTROLYTES Creatinine Lvl 1.4 0 0.50 - 1.40 10/16/2015 [facility] ELECTROLYTES Chloride Lvl 109 95 - 109 10/16/2015 [facility] ELECTROLYTES CO2 21 24 - 32 10/16/2015 [facility] ELECTROLYTES Calcium Lvl 8.3 8.5 - 10.5 10/16/2015 [facility] ELECTROLYTES BUN 22 7 - 22 10/16/2015 [facility] ELECTROLYTES Glucose Lvl 100 70 - 99 10/16/2015 [facility] [place] Basophils # 0.1 0.0 - 0.2 10/16/2015 [facility] [place] Eosinophils # 0.2 0.0 - 0.5 10/16/2015 [facility] HEMATOLOGY Monocytes # 0.7 0.0 - 0.8 10/16/2015 [facility] [place] Lymphocytes # 1.5 1.0 - 5.5 10/16/2015 [facility] [place] Segs-Bands # 7.3 1.5 - 8.1 10/16/2015 [facility] HEMATOLOGY Basophils 0.6 0.0 - 1.0 10/16/2015 [facility] HEMATOLOGY Eosinophils 1.6 0.0 - 4.0 10/16/2015 [facility] [place] Monocytes 7.7 2.0 - 12.0 10/16/2015 [facility] [place] Lymphocytes 15.3 20.0 - 40.0 10/16/2015 [facility] [place] Segs 74.8 45.0 - 75.0 10/16/2015 [facility] [place] RDW 22.4 11.5 - 14.5 10/16/2015 [facility] [place] MPV 8.1 7.4 - 10.4 10/16/2015 [facility] [place] Platelet 423 133 - 450 10/16/2015 [facility] [place] MCHC 31.9 32.0 - 36.0 10/16/2015 [facility] [place] MCH 29.3 27.0 - 31.0 10/16/2015 [facility] [place] MCV 91.8 80.0 - 94.0 10/16/2015 [facility] [place] Hct 26.2 42.0 - 54.0 10/16/2015 [facility] [place] Hgb 8.4 14.0 - 18.0 10/16/2015 [facility] [place] RBC 2.85 4.70 - 6.10 10/16/2015 [facility] [place] WBC 9.7 3.7 - 10.4 10/16/2015 [facility] URINE AND STOOL UA Urobilinogen <=1.0 0.1 - 1.0 10/16/2015 [facility] URINE AND STOOL UA Turbidity Slight *ABN* (10/16/15 3:15 AM) Clear 10/16/2015 [facility] URINE AND STOOL UA Spec Grav 1.014 <=1.030 10/16/2015 [facility] URINE AND STOOL UA Color Yellow *NA* (10/16/15 3:15 AM) Yellow 10/16/2015 [facility] URINE AND STOOL UA RBC 4 0 - 2 10/16/2015 [facility] URINE AND STOOL UA Mucus Few /LPF None Seen /LPF 10/16/2015 [facility] URINE AND STOOL UA Bacteria Occasional /HPF None Seen /HPF 10/16/2015 [facility] URINE AND STOOL UA WBC 33 0 - 5 10/16/2015 [facility] URINE AND STOOL UA Sq Epi Occasional /LPF Few /LPF 10/16/2015 [facility] URINE AND STOOL UA Leuk Est Moderate *ABN* (10/16/15 3:15 AM) Negative 10/16/2015 [facility] URINE AND STOOL UA Nitrite Negative (10/16/15 3:15 AM) Negative 10/16/2015 [facility] URINE AND STOOL UA Blood Negative (10/16/15 3:15 AM) Negative 10/16/2015 [facility] URINE AND STOOL UA Ketones Negative mg/dL Negative mg/dL 10/16/2015 [facility] URINE AND STOOL UA Glucose Negative mg/dL Negative mg/dL 10/16/2015 [facility] URINE AND STOOL UA Protein 30 mg/dL Negative mg/dL 10/16/2015 [facility] URINE AND STOOL UA pH 7.0 5.0 - 8.0 10/16/2015 [facility] URINE AND STOOL UA Bili Negative *NA* (10/16/15 3:15 AM) Negative 10/16/2015 [facility] CHEM PANEL eGFR 57 10/15/2015 Result Comment: [...] should be multiplied by the estimated BMI. [facility] CHEM PANEL Potassium Lvl 4.5 3.5 - 5.1 10/15/2015 [facility] CHEM PANEL Sodium Lvl 138 135 - 145 10/15/2015 [facility] CHEM PANEL Creatinine Lvl 1.60 0.50 - 1.40 10/15/2015 [facility] CHEM PANEL BUN 24 7 - 22 10/15/2015 [facility] CHEM PANEL Glucose Lvl 113 70 - 99 10/15/2015 [facility] CHEM PANEL CO2 25 24 - 32 10/15/2015 [facility] CHEM PANEL Chloride Lvl 104 95 - 109 10/15/2015 [facility] CHEM PANEL Calcium Lvl 8.9 8.5 - 10.5 10/15/2015 [facility] CHEM PANEL AGAP 13.5 10.0 - 20.0 10/15/2015 [facility] HEMATOLOGY Segs 61.6 45.0 - 75.0 10/15/2015 [facility] [place] Lymphocytes 24.3 20.0 - 40.0 10/15/2015 [facility] [place] Monocytes 12.6 2.0 - 12.0 10/15/2015 [facility] [place] RBC Morph Leeann l (10/15/15 3:40 AM) 10/15/2015 [facility] [place] Pl[facility] Morph Leeann l (10/15/15 3:40 AM) 10/15/2015 [facility] [place] Monocytes # 1.6 0.0 - 0.8 10/15/2015 [facility] [place] Lymphocytes # 3.1 1.0 - 5.5 10/15/2015 [facility] HEMATOLOGY Eosinophils 1.3 0.0 - 4.0 10/15/2015 [facility] HEMATOLOGY Basophils 0.2 0.0 - 1.0 10/15/2015 [facility] [place] Segs-Bands # 7.8 1.5 - 8.1 10/15/2015 [facility] [place] Basophils # 0.0 0.0 - 0.2 10/15/2015 [facility] [place] Eosinophils # 0.2 0.0 - 0.5 10/15/2015 [facility] [place] Hgb 9.1 14.0 - 18.0 10/15/2015 [facility] [place] MCV 89.6 80.0 - 94.0 10/15/2015 [facility] [place] Hct 27.1 42.0 - 54.0 10/15/2015 [facility] [place] MCHC 33.7 32.0 - 36.0 10/15/2015 [facility] [place] MCH 30.1 27.0 - 31.0 10/15/2015 [facility] [place] MPV 7.7 7.4 - 10.4 10/15/2015 [facility] [place] Platelet 486 133 - 450 10/15/2015 [facility] [place] RDW 21.3 11.5 - 14.5 10/15/2015 [facility] HEMATOLOGY RBC 3.03 4.70 - 6.10 10/15/2015 [facility] [place] WBC 12.7 3.7 - 10.4 10/15/2015 [facility] CHEM PANEL eGFR 57 10/14/2015 Result Comment: [...] should be multiplied by the estimated BMI. [facility] CHEM PANEL Calcium Lvl 8.8 8.5 - 10.5 10/14/2015 [facility] CHEM PANEL CO2 19 24 - 32 10/14/2015 [facility] CHEM PANEL Chloride Lvl 109 95 - 109 10/14/2015 [facility] CHEM PANEL Sodium Lvl 140 135 - 145 10/14/2015 [facility] CHEM PANEL Potassium Lvl 4.9 3.5 - 5.1 10/14/2015 [facility] CHEM PANEL Creatinine Lvl 1.60 0.50 - 1.40 10/14/2015 [facility] CHEM PANEL BUN 20 7 - 22 10/14/2015 [facility] CHEM PANEL Glucose Lvl 146 70 - 99 10/14/2015 [facility] CHEM PANEL AGAP 16.9 10.0 - 20.0 10/14/2015 [facility] [place] Platelet 405 133 - 450 10/14/2015 [facility] [place] MPV 7.7 7.4 - 10.4 10/14/2015 [facility] [place] MCHC 32.9 32.0 - 36.0 10/14/2015 [facility] [place] WBC 8.2 3.7 - 10.4 10/14/2015 [facility] [place] MCH 29.6 27.0 - 31.0 10/14/2015 [facility] [place] RDW 19.9 11.5 - 14.5 10/14/2015 [facility] [place] Hct 27.0 42.0 - 54.0 10/14/2015 [facility] [place] MCV 90.1 80.0 - 94.0 10/14/2015 [facility] [place] RBC 3.00 4.70 - 6.10 10/14/2015 [facility] [place] Hgb 8.9 14.0 - 18.0 10/14/2015 [facility] [place] Monocytes 8.7 2.0 - 12.0 10/14/2015 [facility] [place] Segs 84.6 45.0 - 75.0 10/14/2015 [facility] [place] Lymphocytes 6.0 20.0 - 40.0 10/14/2015 [facility] [place] Eosinophils 0.4 0.0 - 4.0 10/14/2015 [facility] [place] Monocytes # 0.7 0.0 - 0.8 10/14/2015 [facility] [place] Basophils 0.3 0.0 - 1.0 10/14/2015 [facility] [place] Segs-Bands # 6.9 1.5 - 8.1 10/14/2015 [facility] [place] Lymphocytes # 0.5 1.0 - 5.5 10/14/2015 [facility] [place] Eosinophils # 0.3 0.0 - 0.5 10/12/2015 [facility] TOXICOLOGY Amikacin Lvl 6.0 10/12/2015 [facility] [place] INR 1.21 0.85 - 1.17 10/11/2015 [facility] [place] PT 15.6 12.0 - 14.7 10/11/2015 [facility] [place] PTT 45.8 22.9 - 35.8 10/11/2015 [facility] [place] PTT 42.6 22.9 - 35.8 10/10/2015 [facility] [place] INR 1.18 0.85 - 1.17 10/10/2015 [facility] [place] PT 15.3 12.0 - 14.7 10/10/2015 [facility] BLOOD BANK RESULTS RBC product Product available (10/10/15 9:41 AM) 10/10/2015 [facility] BLOOD BANK RESULTS RBC product Product available (10/10/15 9:13 AM) 10/10/2015 [facility] [place] Polychrom Moder ate *ABN* (10/10/15 6:17 AM) None Seen 10/10/2015 [facility] [place] Plt Morph Leeann l (10/10/15 6:17 AM) 10/10/2015 [facility] HEMATOLOGY Toxic Gran Moder ate *ABN* (10/10/15 6:17 AM) None Seen 10/10/2015 [facility] BLOOD BANK RESULTS Antibody Scrn Negative (10/09/15 10:26 AM) 10/09/2015 [facility] BLOOD BANK RESULTS ABO/Rh A POS 10/09/2015 [facility] HEMATOLOGY Basophils # 0.0 0.0 - 0.2 10/09/2015 [facility] [place] Anisocyte 1+ *ABN* (10/08/15 1:01 PM) None Seen 10/08/2015 [facility] BLOOD BANK RESULTS TRXN Path Interp The [...] evidence o fa hemolytic transfusion reaction. 10/07/2015 [facility] BLOOD [facility] RESULTS Hemolysis Ck None (10/07/15 4:44 PM) 10/07/2015 [facility] BLOOD [facility] RESULTS RBC product Product available (10/07/15 10:49 AM) 10/07/2015 [facility] [place] Toxic Gran Moder ate *ABN* (10/07/15 9:18 AM) None Seen 10/07/2015 [facility] [place] Polychrom Moder ate *ABN* (10/07/15 9:18 AM) None Seen 10/07/2015 [facility] [place] Anisocyte 1+ *ABN* (10/07/15 9:18 AM) None Seen 10/07/2015 [facility] HEMATOLOGY Plt Morph Leeann l (10/07/15 9:18 AM) 10/07/2015 [facility] [place] Anisocyte 1+ *ABN* (10/06/15 10:44 AM) None Seen 10/06/2015 [facility] BLOOD BANK RESULTS ABO/Rh A POS 10/05/2015 [facility] BLOOD BANK RESULTS Antibody Scrn Negative (10/05/15 2:43 PM) 10/05/2015 [facility] DRUG SCREEN U Benzodia Scr Posi tive *ABN* (10/05/15 1:00 PM) Negative 10/05/2015 [facility] DRUG SCREEN U Cannab Scr Nega tive *NA* (10/05/15 1:00 PM) Negative 10/05/2015 [facility] DRUG SCREEN U Cocaine Scr Nega tive *NA* (10/05/15 1:00 PM) Negative 10/05/2015 [facility] DRUG SCREEN U Opiate Scr Posi tive *ABN* (10/05/15 1:00 PM) Negative 10/05/2015 [facility] DRUG SCREEN U Phencyc Scr Nega tive *NA* (10/05/15 1:00 PM) Negative 10/05/2015 [facility] DRUG SCREEN U Methadone Scr Nega tive *NA* (10/05/15 1:00 PM) Negative 10/05/2015 [facility] DRUG SCREEN U Propoxyph Scr Nega tive *NA* (10/05/15 1:00 PM) Negative 10/05/2015 [facility] DRUG SCREEN UDS Note See Note (10/05/15 1:00 PM) 10/05/2015 [facility] DRUG SCREEN U Amph Scr Nega tive *NA* (10/05/15 1:00 PM) Negative 10/05/2015 [facility] DRUG SCREEN U Chelsie Scr Nega tive *NA* (10/05/15 1:00 PM) Negative 10/05/2015 [facility] ANEMIA STUDY TIBC 234 228 - 428 10/02/2015 [facility] ANEMIA STUDY UIBC 161 110 - 370 10/02/2015 [facility] ANEMIA STUDY % [place] Fe 31 12 - 57 10/02/2015 [facility] ANEMIA STUDY Iron 73 45 - 160 10/02/2015 [facility] ANEMIA STUDY Ferritin Lvl 806 22 - 275 10/02/2015 [facility] BLOOD BANK RESULTS ABO/Rh A POS 09/30/2015 [facility] BLOOD BANK RESULTS Antibody Scrn Negative (09/30/15 11:58 AM) 09/30/2015 [facility] CHEM PANEL Phosphorus 2.8 2.5 - 4.5 09/30/2015 [facility] CHEM PANEL Magnesium Lvl 1.9 1.8 - 2.4 09/30/2015 [facility] HEMATOLOGY RBC Morph Leeann l (09/26/15 5:35 AM) 09/26/2015 [facility] MOLECULAR DIAGNOSTIC C difficile DNA Negative (09/25/15 5:28 PM) Negative 09/25/2015 [facility] URINE AND STOOL UA Sq Epi None Seen 09/25/2015 [facility] URINE AND STOOL UA Urobilinogen <=1.0 0.1 - 1.0 09/25/2015 [facility] URINE AND STOOL UA Spec Grav 1.015 <=1.030 09/25/2015 [facility] URINE AND STOOL UA pH 7.0 5.0 - 8.0 09/25/2015 [facility] URINE AND STOOL UA Glucose Negative mg/dL Negative mg/dL 09/25/2015 [facility] URINE AND STOOL UA Protein 30 mg/dL Negative mg/dL 09/25/2015 [facility] URINE AND STOOL UA Ketones Negative mg/dL Negative mg/dL 09/25/2015 [facility] URINE AND STOOL UA Bili Negative *NA* (09/25/15 5:28 PM) Negative 09/25/2015 [facility] URINE AND STOOL UA Blood Negative (09/25/15 5:28 PM) Negative 09/25/2015 [facility] URINE AND STOOL UA Nitrite Negative (09/25/15 5:28 PM) Negative 09/25/2015 [facility] URINE AND STOOL UA Leuk Est Moderate *ABN* (09/25/15 5:28 PM) Negative 09/25/2015 [facility] URINE AND STOOL UA WBC 16 0 - 5 09/25/2015 [facility] URINE AND STOOL UA RBC 5 0 - 2 09/25/2015 [facility] URINE AND STOOL UA Mucus Few /LPF None Seen /LPF 09/25/2015 [facility] URINE AND STOOL UA Hyal Cast 1 0 - 2 09/25/2015 [facility] URINE AND STOOL UA [place] Yeast Occasional /HPF None Seen /HPF 09/25/2015 [facility] URINE AND STOOL UA Color Yellow *NA* (09/25/15 5:28 PM) Yellow 09/25/2015 [facility] URINE AND STOOL UA Turbidity Slight *ABN* (09/25/15 5:28 PM) Clear 09/25/2015 [facility] CHEM PANEL Lactic Acid Lvl 2.0 0.5 - 2.2 09/25/2015 [facility] CHEM PANEL Procalcitonin Lvl 0.40 0.00 - 0.10 09/25/2015 [facility] DRUG SCREEN U Methadone Scr Nega tive *NA* (09/23/15 10:57 AM) Negative 09/23/2015 [facility] DRUG SCREEN U Phencyc Scr Nega tive *NA* (09/23/15 10:57 AM) Negative 09/23/2015 [facility] DRUG SCREEN U Opiate Scr Posi tive *ABN* (09/23/15 10:57 AM) Negative 09/23/2015 [facility] DRUG SCREEN U Cannab Scr Posi tive *ABN* (09/23/15 10:57 AM) Negative 09/23/2015 [facility] DRUG SCREEN U Propoxyph Scr Nega tive *NA* (09/23/15 10:57 AM) Negative 09/23/2015 [facility] DRUG SCREEN UDS Note See Note (09/23/15 10:57 AM) 09/23/2015 [facility] DRUG SCREEN U Cocaine Scr Nega tive *NA* (09/23/15 10:57 AM) Negative 09/23/2015 [facility] DRUG SCREEN U Benzodia Scr Posi tive *ABN* (09/23/15 10:57 AM) Negative 09/23/2015 [facility] DRUG SCREEN U Chelsie Scr Nega tive *NA* (09/23/15 10:57 AM) Negative 09/23/2015 [facility] DRUG SCREEN U Amph Scr Nega tive *NA* (09/23/15 10:57 AM) Negative 09/23/2015 [facility] HEMATOLOGY Sed Rate 73 0 - 15 09/22/2015 [facility] CHEM PANEL Bili Total 0.3 0.2 - 1.3 09/19/2015 [facility] CHEM PANEL ALT 25 0 - 65 09/19/2015 [facility] CHEM PANEL AST 14 0 - 37 09/19/2015 [facility] CHEM PANEL Alk Phos 118 39 - 136 09/19/2015 [facility] CHEM PANEL Total Protein 7.8 6.4 - 8.4 09/19/2015 [facility] CHEM PANEL Albumin Lvl 2.2 3.5 - 5.0 09/19/2015 [facility] CHEM PANEL A/G Ratio 0.4 0.7 - 1.6 09/19/2015 [facility] CHEM PANEL B/C Ratio 28 6 - 25 09/19/2015 [facility] CHEM PANEL Globulin 5.6 2.0 - 4.0 09/19/2015 [facility] HEMATOLOGY Sed Rate >100 mm/hr 0 - 15 09/19/2015 [facility] HEMATOLOGY Hypochrom 1+ (09/16/15 6:20 AM) None Seen 09/16/2015 [facility] HEMATOLOGY Polychrom Moder ate *ABN* (09/16/15 6:20 AM) None Seen 09/16/2015 [facility] HEMATOLOGY Sed Rate 74 0 - 15 09/15/2015 [facility] IMMUNOLOGY CRP, High Sensitivity 32. 3 09/15/2015 [facility] [place] RBC Morph Leeann l (09/13/15 3:51 AM) 09/13/2015 [facility] [place] MPV 7.5 7.4 - 10.4 09/09/2015 [facility] [place] MCV 84.7 80.0 - 94.0 09/09/2015 [facility] [place] Hct 28.7 42.0 - 54.0 09/09/2015 [facility] [place] MCHC 32.8 32.0 - 36.0 09/09/2015 [facility] [place] MCH 27.8 27.0 - 31.0 09/09/2015 [facility] [place] RDW 19.7 11.5 - 14.5 09/09/2015 [facility] [place] Platelet 381 133 - 450 09/09/2015 [facility] [place] Hgb 9.4 14.0 - 18.0 09/09/2015 [facility] [place] RBC 3.39 4.70 - 6.10 09/09/2015 [facility] [place] WBC 7.8 3.7 - 10.4 09/09/2015 [facility] [place] Eosinophils # 0.4 0.0 - 0.5 09/09/2015 [facility] [place] Monocytes # 1.0 0.0 - 0.8 09/09/2015 [facility] [place] Lymphocytes # 3.1 1.0 - 5.5 09/09/2015 [facility] [place] Basophils 0.6 0.0 - 1.0 09/09/2015 [facility] [place] Segs-Bands # 3.3 1.5 - 8.1 09/09/2015 [facility] [place] Basophils # 0.0 0.0 - 0.2 09/09/2015 [facility] [place] Segs 42.5 45.0 - 75.0 09/09/2015 [facility] [place] Eosinophils 5.2 0.0 - 4.0 09/09/2015 [facility] [place] Lymphocytes 39.4 20.0 - 40.0 09/09/2015 [facility] [place] Monocytes 12.3 2.0 - 12.0 09/09/2015 [facility] ELECTROLYTES AGAP 15.1 10.0 - 20.0 09/08/2015 [facility] ELECTROLYTES eGFR 101 09/08/2015 Result Comment: The [...] should be multiplied by the estimated BMI. [facility] ELECTROLYTES BUN 16 7 - 22 09/08/2015 [facility] ELECTROLYTES Glucose Lvl 89 70 - 99 09/08/2015 [facility] ELECTROLYTES Potassium Lvl 4.1 3.5 - 5.1 09/08/2015 [facility] ELECTROLYTES Sodium Lvl 137 135 - 145 09/08/2015 [facility] ELECTROLYTES Creatinine Lvl 1.0 0 0.50 - 1.40 09/08/2015 [facility] ELECTROLYTES Calcium Lvl 8.9 8.5 - 10.5 09/08/2015 [facility] ELECTROLYTES CO2 24 24 - 32 09/08/2015 [facility] ELECTROLYTES Chloride Lvl 102 95 - 109 09/08/2015 [facility] [place] Monocytes # 1.1 0.0 - 0.8 09/08/2015 [facility] HEMATOLOGY Eosinophils # 0.4 0.0 - 0.5 09/08/2015 [facility] [place] Lymphocytes # 3.0 1.0 - 5.5 09/08/2015 [facility] [place] Segs-Bands # 3.7 1.5 - 8.1 09/08/2015 [facility] HEMATOLOGY Basophils 0.6 0.0 - 1.0 09/08/2015 [facility] HEMATOLOGY Eosinophils 5.3 0.0 - 4.0 09/08/2015 [facility] [place] Lymphocytes 36.3 20.0 - 40.0 09/08/2015 [facility] [place] Monocytes 13.4 2.0 - 12.0 09/08/2015 [facility] [place] Plt Morph Leeann l (09/08/15 4:27 AM) 09/08/2015 [facility] [place] RBC Morph Leeann l (09/08/15 4:27 AM) 09/08/2015 [facility] [place] Segs 44.4 45.0 - 75.0 09/08/2015 [facility] HEMATOLOGY MPV 7.8 7.4 - 10.4 09/08/2015 [facility] HEMATOLOGY Platelet 285 133 - 450 09/08/2015 [facility] HEMATOLOGY MCH 28.3 27.0 - 31.0 09/08/2015 [facility] HEMATOLOGY MCV 85.9 80.0 - 94.0 09/08/2015 [facility] HEMATOLOGY RBC 2.86 4.70 - 6.10 09/08/2015 [facility] HEMATOLOGY Hct 24.6 42.0 - 54.0 09/08/2015 [facility] HEMATOLOGY MCHC 32.9 32.0 - 36.0 09/08/2015 [facility] HEMATOLOGY RDW 18.4 11.5 - 14.5 09/08/2015 [facility] HEMATOLOGY WBC 8.4 3.7 - 10.4 09/08/2015 [facility] HEMATOLOGY Hgb 8.1 14.0 - 18.0 09/08/2015 [facility] DRUG SCREEN UDS Note See Note (09/08/15 12:53 AM) 09/08/2015 [facility] DRUG SCREEN U Cannab Scr Posi tive *ABN* (09/08/15 12:53 AM) Negative 09/08/2015 [facility] DRUG SCREEN U Cocaine Scr Nega tive *NA* (09/08/15 12:53 AM) Negative 09/08/2015 [facility] DRUG SCREEN U Benzodia Scr Posi tive *ABN* (09/08/15 12:53 AM) Negative 09/08/2015 [facility] DRUG SCREEN U Phencyc Scr Nega tive *NA* (09/08/15 12:53 AM) Negative 09/08/2015 [facility] DRUG SCREEN U Opiate Scr Posi tive *ABN* (09/08/15 12:53 AM) Negative 09/08/2015 [facility] DRUG SCREEN U Chelsie Scr Nega tive *NA* (09/08/15 12:53 AM) Negative 09/08/2015 [facility] DRUG SCREEN U Amph Scr Nega tive *NA* (09/08/15 12:53 AM) Negative 09/08/2015 [facility] CARDIAC ENZYMES CK MB Index 0.9 0.0 - 2.5 09/07/2015 [facility] CARDIAC ENZYMES Total CK 185 12 - 191 09/07/2015 [facility] CARDIAC ENZYMES CK MB 1.6 0.5 - 3.6 09/07/2015 [facility] CARDIAC ENZYMES Troponin-I 0.03 0.00 - 0.40 09/07/2015 [facility] CHEM PANEL Procalcitonin Lvl 0.19 0.00 - 0.10 09/07/2015 [facility] CHEM PANEL Lactic Acid Lvl 2.6 0.5 - 2.2 09/07/2015 [facility] CHEM PANEL Bili Total 0.3 0.2 - 1.3 09/07/2015 [facility] CHEM PANEL Alk Phos 145 39 - 136 09/07/2015 [facility] CHEM PANEL B/C Ratio 23 6 - 25 09/07/2015 [facility] CHEM PANEL AGAP 11.4 10.0 - 20.0 09/07/2015 [facility] CHEM PANEL AST 28 0 - 37 09/07/2015 [facility] CHEM PANEL Globulin 7.0 2.0 - 4.0 09/07/2015 [facility] CHEM PANEL A/G Ratio 0.4 0.7 - 1.6 09/07/2015 [facility] CHEM PANEL eGFR 85 09/07/2015 Result Comment: [...] should be multiplied by the estimated BMI. [facility] CHEM PANEL Total Protein 9.7 6.4 - 8.4 09/07/2015 [facility] CHEM PANEL ALT 40 0 - 65 09/07/2015 [facility] CHEM PANEL Albumin Lvl 2.7 3.5 - 5.0 09/07/2015 [facility] CHEM PANEL BUN 27 7 - 22 09/07/2015 [facility] CHEM PANEL Glucose Lvl 86 70 - 99 09/07/2015 [facility] CHEM PANEL CO2 26 24 - 32 09/07/2015 [facility] CHEM PANEL Calcium Lvl 8.5 8.5 - 10.5 09/07/2015 [facility] CHEM PANEL Sodium Lvl 134 135 - 145 09/07/2015 [facility] CHEM PANEL Creatinine Lvl 1.15 0.50 - 1.40 09/07/2015 [facility] CHEM PANEL Chloride Lvl 101 95 - 109 09/07/2015 [facility] CHEM PANEL Potassium Lvl 4.4 3.5 - 5.1 09/07/2015 [facility] [place] Lymphocytes # 2.4 1.0 - 5.5 09/07/2015 [facility] HEMATOLOGY Eosinophils 0.4 0.0 - 4.0 09/07/2015 [facility] HEMATOLOGY Basophils 0.8 0.0 - 1.0 09/07/2015 [facility] HEMATOLOGY Segs 64.7 45.0 - 75.0 09/07/2015 [facility] [place] Lymphocytes 22.5 20.0 - 40.0 09/07/2015 [facility] [place] Monocytes 11.6 2.0 - 12.0 09/07/2015 [facility] [place] Segs-Bands # 6.8 1.5 - 8.1 09/07/2015 [facility] [place] Basophils # 0.1 0.0 - 0.2 09/07/2015 [facility] [place] Monocytes # 1.2 0.0 - 0.8 09/07/2015 [facility] [place] Eosinophils # 0.0 0.0 - 0.5 09/07/2015 [facility] [place] PTT 35.6 22.9 - 35.8 09/07/2015 [facility] [place] Hct 29.0 42.0 - 54.0 09/07/2015 [facility] [place] Hgb 9.6 14.0 - 18.0 09/07/2015 [facility] [place] RBC 3.47 4.70 - 6.10 09/07/2015 [facility] [place] WBC 10.5 3.7 - 10.4 09/07/2015 [facility] [place] MCH 27.7 27.0 - 31.0 09/07/2015 [facility] [place] MCV 83.5 80.0 - 94.0 09/07/2015 [facility] [place] RDW 18.2 11.5 - 14.5 09/07/2015 [facility] [place] MCHC 33.2 32.0 - 36.0 09/07/2015 [facility] [place] Platelet 335 133 - 450 09/07/2015 [facility] [place] MPV 7.5 7.4 - 10.4 09/07/2015 [facility] [place] PT 14.9 12.0 - 14.7 09/07/2015 [facility] HEMATOLOGY INR 1.14 0.85 - 1.17 09/07/2015 [facility] URINE AND STOOL UA Mucus None Seen (09/07/15 12:25 AM) None Seen 09/07/2015 [facility] URINE AND STOOL UA Bacteria Few /HPF None Seen /HPF 09/07/2015 [facility] URINE AND STOOL UA RBC Packed *ABN* (09/07/15 12:25 AM) 0 - 2 09/07/2015 [facility] URINE AND STOOL UA WBC 3-5 /HPF None Seen /HPF 09/07/2015 [facility] URINE AND STOOL UA Sq Epi None Seen (09/07/15 12:25 AM) Few 09/07/2015 [facility] URINE AND STOOL UA Blood Large *ABN* (09/07/15 12:25 AM) Negative 09/07/2015 [facility] URINE AND STOOL UA Nitrite Positive *ABN* (09/07/15 12:25 AM) Negative 09/07/2015 [facility] URINE AND STOOL UA Urobilinogen 0.2 0.1 - 1.0 09/07/2015 [facility] URINE AND STOOL UA Ketones Negative *NA* (09/07/15 12:25 AM) Negative 09/07/2015 [facility] URINE AND STOOL UA Bili Negative *NA* (09/07/15 12:25 AM) Negative 09/07/2015 [facility] URINE AND STOOL UA Glucose Negative (09/07/15 12:25 AM) Negative 09/07/2015 [facility] URINE AND STOOL UA pH 6.0 5.0 - 8.0 09/07/2015 [facility] URINE AND STOOL UA Protein 100 mg/dL Negative mg/dL 09/07/2015 [facility] URINE AND STOOL UA Leuk Est Moderate *ABN* (09/07/15 12:25 AM) Negative 09/07/2015 [facility] URINE AND STOOL UA Turbidity Cloudy *ABN* (09/07/15 12:25 AM) Clear 09/07/2015 [facility] URINE AND STOOL UA Spec Grav 1.010 <=1.030 09/07/2015 [facility] URINE AND STOOL UA Color Red *ABN* (09/07/15 12:25 AM) Yellow 09/07/2015 [facility] CHEM PANEL eGFR 101 09/02/2015 Result Comment: [...] should be multiplied by the estimated BMI. [facility] CHEM PANEL Potassium Lvl 4.3 3.5 - 5.1 09/02/2015 [facility] CHEM PANEL Sodium Lvl 139 135 - 145 09/02/2015 [facility] CHEM PANEL Creatinine Lvl 1.00 0.50 - 1.40 09/02/2015 [facility] CHEM PANEL CO2 27 24 - 32 09/02/2015 [facility] CHEM PANEL Chloride Lvl 106 95 - 109 09/02/2015 [facility] CHEM PANEL Calcium Lvl 9.3 8.5 - 10.5 09/02/2015 [facility] CHEM PANEL BUN 18 7 - 22 09/02/2015 [facility] CHEM PANEL Glucose Lvl 70 70 - 99 09/02/2015 [facility] CHEM PANEL AGAP 10.3 10.0 - 20.0 09/02/2015 [facility] HEMATOLOGY Hgb 8.2 14.0 - 18.0 09/02/2015 [facility] HEMATOLOGY RBC 3.03 4.70 - 6.10 09/02/2015 [facility] HEMATOLOGY Hct 25.6 42.0 - 54.0 09/02/2015 [facility] [place] MCH 27.0 27.0 - 31.0 09/02/2015 [facility] HEMATOLOGY MCV 84.4 80.0 - 94.0 09/02/2015 [facility] [place] Platelet 191 133 - 450 09/02/2015 [facility] [place] RDW 17.7 11.5 - 14.5 09/02/2015 [facility] [place] MCHC 32.0 32.0 - 36.0 09/02/2015 [facility] [place] MPV 7.8 7.4 - 10.4 09/02/2015 [facility] [place] WBC 5.4 3.7 - 10.4 09/02/2015 [facility] HEMATOLOGY Lymphocytes # 2.5 1.0 - 5.5 09/02/2015 [facility] HEMATOLOGY Segs-Bands # 1.8 1.5 - 8.1 09/02/2015 [facility] HEMATOLOGY Monocytes # 0.7 0.0 - 0.8 09/02/2015 [facility] HEMATOLOGY Basophils 0.8 0.0 - 1.0 09/02/2015 [facility] HEMATOLOGY Eosinophils # 0.4 0.0 - 0.5 09/02/2015 [facility] HEMATOLOGY Segs 32.8 45.0 - 75.0 09/02/2015 [facility] [place] Lymphocytes 46.4 20.0 - 40.0 09/02/2015 [facility] HEMATOLOGY Eosinophils 6.6 0.0 - 4.0 09/02/2015 [facility] [place] Monocytes 13.4 2.0 - 12.0 09/02/2015 [facility] CHEM PANEL eGFR 101 08/29/2015 Result Comment: [...] should be multiplied by the estimated BMI. [facility] CHEM PANEL CO2 27 24 - 32 08/29/2015 [facility] CHEM PANEL Chloride Lvl 106 95 - 109 08/29/2015 [facility] CHEM PANEL Calcium Lvl 8.4 8.5 - 10.5 08/29/2015 [facility] CHEM PANEL BUN 19 7 - 22 08/29/2015 [facility] CHEM PANEL Sodium Lvl 143 135 - 145 08/29/2015 [facility] CHEM PANEL Creatinine Lvl 1.00 0.50 - 1.40 08/29/2015 [facility] CHEM PANEL Potassium Lvl 4.3 3.5 - 5.1 08/29/2015 [facility] CHEM PANEL Glucose Lvl 86 70 - 99 08/29/2015 [facility] CHEM PANEL AGAP 14.3 10.0 - 20.0 08/29/2015 [facility] HEMATOLOGY Eosinophils 2.1 0.0 - 4.0 08/29/2015 [facility] HEMATOLOGY Monocytes 15.0 2.0 - 12.0 08/29/2015 [facility] HEMATOLOGY Segs 40.2 45.0 - 75.0 08/29/2015 [facility] HEMATOLOGY Lymphocytes 41.9 20.0 - 40.0 08/29/2015 [facility] HEMATOLOGY Basophils # 0.0 0.0 - 0.2 08/29/2015 [facility] HEMATOLOGY Eosinophils # 0.1 0.0 - 0.5 08/29/2015 [facility] HEMATOLOGY Monocytes # 0.9 0.0 - 0.8 08/29/2015 [facility] [place] Lymphocytes # 2.5 1.0 - 5.5 08/29/2015 [facility] HEMATOLOGY Segs-Bands # 2.4 1.5 - 8.1 08/29/2015 [facility] HEMATOLOGY Basophils 0.8 0.0 - 1.0 08/29/2015 [facility] [place] MCH 27.3 27.0 - 31.0 08/29/2015 [facility] [place] MCV 85.3 80.0 - 94.0 08/29/2015 [facility] [place] Hct 26.3 42.0 - 54.0 08/29/2015 [facility] [place] Hgb 8.4 14.0 - 18.0 08/29/2015 [facility] [place] WBC 5.9 3.7 - 10.4 08/29/2015 [facility] [place] RBC 3.09 4.70 - 6.10 08/29/2015 [facility] HEMATOLOGY RDW 18.1 11.5 - 14.5 08/29/2015 [facility] [place] MCHC 32.0 32.0 - 36.0 08/29/2015 [facility] HEMATOLOGY Platelet 249 133 - 450 08/29/2015 [facility] HEMATOLOGY MPV 7.3 7.4 - 10.4 08/29/2015 [facility] DRUG SCREEN UDS Note See Note (08/26/15 5:08 AM) 08/26/2015 [facility] DRUG SCREEN U Amph Scr Nega tive *NA* (08/26/15 5:08 AM) Negative 08/26/2015 [facility] DRUG SCREEN U Cannab Scr Posi tive *ABN* (08/26/15 5:08 AM) Negative 08/26/2015 [facility] DRUG SCREEN U Cocaine Scr Nega tive *NA* (08/26/15 5:08 AM) Negative 08/26/2015 [facility] DRUG SCREEN U Opiate Scr Nega tive *NA* (08/26/15 5:08 AM) Negative 08/26/2015 [facility] DRUG SCREEN U Phencyc Scr Nega tive *NA* (08/26/15 5:08 AM) Negative 08/26/2015 [facility] DRUG SCREEN U Benzodia Scr Posi tive *ABN* (08/26/15 5:08 AM) Negative 08/26/2015 [facility] DRUG SCREEN U Chelsie Scr Nega tive *NA* (08/26/15 5:08 AM) Negative 08/26/2015 [facility] ELECTROLYTES AGAP 13.3 10.0 - 20.0 08/25/2015 [facility] ELECTROLYTES eGFR 114 08/25/2015 Result Comment: The [...] should be multiplied by the estimated BMI. [facility] ELECTROLYTES Calcium Lvl 9.4 8.5 - 10.5 08/25/2015 [facility] ELECTROLYTES Chloride Lvl 105 95 - 109 08/25/2015 [facility] ELECTROLYTES CO2 27 24 - 32 08/25/2015 [facility] ELECTROLYTES Potassium Lvl 4.3 3.5 - 5.1 08/25/2015 [facility] ELECTROLYTES Glucose Lvl 66 70 - 99 08/25/2015 [facility] ELECTROLYTES BUN 15 7 - 22 08/25/2015 [facility] ELECTROLYTES Creatinine Lvl 0.9 0 0.50 - 1.40 08/25/2015 [facility] ELECTROLYTES Sodium Lvl 141 135 - 145 08/25/2015 [facility] HEMATOLOGY Eosinophils 2.1 0.0 - 4.0 08/25/2015 [facility] HEMATOLOGY Basophils 1.4 0.0 - 1.0 08/25/2015 [facility] [place] Segs-Bands # 3.5 1.5 - 8.1 08/25/2015 [facility] [place] Lymphocytes # 2.2 1.0 - 5.5 08/25/2015 [facility] HEMATOLOGY Segs 56.3 45.0 - 75.0 08/25/2015 [facility] HEMATOLOGY Monocytes 5.1 2.0 - 12.0 08/25/2015 [facility] HEMATOLOGY Lymphocytes 35.1 20.0 - 40.0 08/25/2015 [facility] [place] Monocytes # 0.3 0.0 - 0.8 08/25/2015 [facility] HEMATOLOGY Eosinophils # 0.1 0.0 - 0.5 08/25/2015 [facility] HEMATOLOGY Basophils # 0.1 0.0 - 0.2 08/25/2015 [facility] HEMATOLOGY Platelet 325 133 - 450 08/25/2015 [facility] HEMATOLOGY RDW 17.9 11.5 - 14.5 08/25/2015 [facility] [place] MPV 7.7 7.4 - 10.4 08/25/2015 [facility] [place] MCHC 32.0 32.0 - 36.0 08/25/2015 [facility] [place] MCH 27.3 27.0 - 31.0 08/25/2015 [facility] [place] MCV 85.2 80.0 - 94.0 08/25/2015 [facility] [place] RBC 2.97 4.70 - 6.10 08/25/2015 [facility] [place] WBC 6.2 3.7 - 10.4 08/25/2015 [facility] [place] Hgb 8.1 14.0 - 18.0 08/25/2015 [facility] [place] Hct 25.3 42.0 - 54.0 08/25/2015 [facility] CHEM PANEL Phosphorus 3.1 2.5 - 4.5 08/23/2015 [facility] CHEM PANEL eGFR 113 08/23/2015 Result Comment: [...] should be multiplied by the estimated BMI. [facility] CHEM PANEL Creatinine Lvl 0.91 0.50 - 1.40 08/23/2015 [facility] CHEM PANEL CO2 29 24 - 32 08/23/2015 [facility] CHEM PANEL Calcium Lvl 8.0 8.5 - 10.5 08/23/2015 [facility] CHEM PANEL Albumin Lvl 1.9 3.5 - 5.0 08/23/2015 [facility] CHEM PANEL AGAP 11.6 10.0 - 20.0 08/23/2015 [facility] CHEM PANEL Sodium Lvl 138 135 - 145 08/23/2015 [facility] CHEM PANEL Chloride Lvl 102 95 - 109 08/23/2015 [facility] CHEM PANEL Glucose Lvl 58 70 - 99 08/23/2015 [facility] CHEM PANEL BUN 13 7 - 22 08/23/2015 [facility] CHEM PANEL Potassium Lvl 4.6 3.5 - 5.1 08/23/2015 [facility] HEMATOLOGY Eosinophils 2.7 0.0 - 4.0 08/23/2015 [facility] HEMATOLOGY Basophils 0.8 0.0 - 1.0 08/23/2015 [facility] HEMATOLOGY Monocytes 9.0 2.0 - 12.0 08/23/2015 [facility] HEMATOLOGY Segs 58.2 45.0 - 75.0 08/23/2015 [facility] HEMATOLOGY Lymphocytes 29.3 20.0 - 40.0 08/23/2015 [facility] HEMATOLOGY Eosinophils # 0.2 0.0 - 0.5 08/23/2015 [facility] HEMATOLOGY Segs-Bands # 3.9 1.5 - 8.1 08/23/2015 [facility] HEMATOLOGY Lymphocytes # 2.0 1.0 - 5.5 08/23/2015 [facility] HEMATOLOGY Basophils # 0.1 0.0 - 0.2 08/23/2015 [facility] HEMATOLOGY Monocytes # 0.6 0.0 - 0.8 08/23/2015 [facility] HEMATOLOGY Hgb 8.4 14.0 - 18.0 08/23/2015 [facility] HEMATOLOGY Platelet 284 133 - 450 08/23/2015 [facility] MPV 7.4 7.4 - 10.4 08/23/2015 [facility] HEMATOLOGY WBC 6.7 3.7 - 10.4 08/23/2015 [facility] HEMATOLOGY MCHC 31.4 32.0 - 36.0 08/23/2015 [facility] HEMATOLOGY RDW 18.0 11.5 - 14.5 08/23/2015 [facility] HEMATOLOGY MCH 26.6 27.0 - 31.0 08/23/2015 [facility] HEMATOLOGY Hct 26.8 42.0 - 54.0 08/23/2015 [facility] HEMATOLOGY RBC 3.16 4.70 - 6.10 08/23/2015 [facility] HEMATOLOGY MCV 84.6 80.0 - 94.0 08/23/2015 [facility] CHEM PANEL Phosphorus 3.2 2.5 - 4.5 08/23/2015 [facility] CHEM PANEL Sodium Lvl 136 135 - 145 08/23/2015 [facility] CHEM PANEL Glucose Lvl 83 70 - 99 08/23/2015 [facility] CHEM PANEL Calcium Lvl 8.6 8.5 - 10.5 08/23/2015 [facility] CHEM PANEL Chloride Lvl 102 95 - 109 08/23/2015 [facility] CHEM PANEL Potassium Lvl 4.7 3.5 - 5.1 08/23/2015 [facility] CHEM PANEL eGFR 107 08/23/2015 Result Comment: [...] should be multiplied by the estimated BMI. [facility] CHEM PANEL Creatinine Lvl 0.95 0.50 - 1.40 08/23/2015 [facility] CHEM PANEL Albumin Lvl 1.8 3.5 - 5.0 08/23/2015 [facility] CHEM PANEL CO2 28 24 - 32 08/23/2015 [facility] CHEM PANEL BUN 12 7 - 22 08/23/2015 [facility] CHEM PANEL AGAP 10.7 10.0 - 20.0 08/23/2015 [facility] HEMATOLOGY Eosinophils 2.7 0.0 - 4.0 08/23/2015 [facility] HEMATOLOGY Basophils 0.9 0.0 - 1.0 08/23/2015 [facility] HEMATOLOGY Segs-Bands # 4.0 1.5 - 8.1 08/23/2015 [facility] HEMATOLOGY Segs 55.8 45.0 - 75.0 08/23/2015 [facility] HEMATOLOGY Lymphocytes 32.2 20.0 - 40.0 08/23/2015 [facility] HEMATOLOGY Monocytes # 0.6 0.0 - 0.8 08/23/2015 [facility] HEMATOLOGY Eosinophils # 0.2 0.0 - 0.5 08/23/2015 [facility] HEMATOLOGY Basophils # 0.1 0.0 - 0.2 08/23/2015 [facility] HEMATOLOGY Monocytes 8.4 2.0 - 12.0 08/23/2015 [facility] HEMATOLOGY Lymphocytes # 2.3 1.0 - 5.5 08/23/2015 [facility] HEMATOLOGY Platelet 276 133 - 450 08/23/2015 [facility] HEMATOLOGY MPV 7.2 7.4 - 10.4 08/23/2015 [facility] HEMATOLOGY RDW 17.8 11.5 - 14.5 08/23/2015 [facility] HEMATOLOGY MCH 27.2 27.0 - 31.0 08/23/2015 [facility] HEMATOLOGY MCHC 32.2 32.0 - 36.0 08/23/2015 [facility] HEMATOLOGY Hgb 8.4 14.0 - 18.0 08/23/2015 [facility] HEMATOLOGY Hct 26.3 42.0 - 54.0 08/23/2015 [facility] HEMATOLOGY MCV 84.5 80.0 - 94.0 08/23/2015 [facility] HEMATOLOGY WBC 7.2 3.7 - 10.4 08/23/2015 [facility] HEMATOLOGY RBC 3.11 4.70 - 6.10 08/23/2015 [facility] ELECTROLYTES AGAP 11.6 10.0 - 20.0 08/21/2015 [facility] ELECTROLYTES Potassium Lvl 4.6 3.5 - 5.1 08/21/2015 [facility] ELECTROLYTES Chloride Lvl 104 95 - 109 08/21/2015 [facility] ELECTROLYTES CO2 27 24 - 32 08/21/2015 [facility] ELECTROLYTES Calcium Lvl 7.7 8.5 - 10.5 08/21/2015 [facility] ELECTROLYTES Albumin Lvl 1.9 3.5 - 5.0 08/21/2015 [facility] ELECTROLYTES BUN 13 7 - 22 08/21/2015 [facility] ELECTROLYTES Sodium Lvl 138 135 - 145 08/21/2015 [facility] ELECTROLYTES eGFR 101 08/21/2015 Result Comment: The [...] should be multiplied by the estimated BMI. [facility] ELECTROLYTES Creatinine Lvl 1.0 0 0.50 - 1.40 08/21/2015 [facility] ELECTROLYTES Glucose Lvl 64 70 - 99 08/21/2015 [facility] ELECTROLYTES Phosphorus 3.5 2.5 - 4.5 08/21/2015 [facility] HEMATOLOGY Toxic Gran Moder ate *ABN* (08/21/15 1:00 PM) None Seen 08/21/2015 [facility] HEMATOLOGY Macrocyte 1+ *ABN* (08/21/15 1:00 PM) None Seen 08/21/2015 [facility] HEMATOLOGY Basophils # 0.0 0.0 - 0.2 08/21/2015 [facility] HEMATOLOGY Hypochrom 1+ (08/21/15 1:00 PM) None Seen 08/21/2015 [facility] HEMATOLOGY Eosinophils # 0.2 0.0 - 0.5 08/21/2015 [facility] HEMATOLOGY Segs-Bands # 3.2 1.5 - 8.1 08/21/2015 [facility] HEMATOLOGY Basophils 0.6 0.0 - 1.0 08/21/2015 [facility] HEMATOLOGY Monocytes # 0.5 0.0 - 0.8 08/21/2015 [facility] HEMATOLOGY Lymphocytes # 1.8 1.0 - 5.5 08/21/2015 [facility] HEMATOLOGY Monocytes 9.1 2.0 - 12.0 08/21/2015 [facility] HEMATOLOGY Lymphocytes 31.5 20.0 - 40.0 08/21/2015 [facility] HEMATOLOGY Eosinophils 3.3 0.0 - 4.0 08/21/2015 [facility] HEMATOLOGY Plt Morph Leeann l (08/21/15 1:00 PM) 08/21/2015 [facility] HEMATOLOGY Segs 55.5 45.0 - 75.0 08/21/2015 [facility] HEMATOLOGY WBC 5.7 3.7 - 10.4 08/21/2015 [facility] HEMATOLOGY Hct 21.4 42.0 - 54.0 08/21/2015 [facility] HEMATOLOGY RBC 2.58 4.70 - 6.10 08/21/2015 [facility] HEMATOLOGY Hgb 6.8 14.0 - 18.0 08/21/2015 Result Comment: Critical Result(s) loulou messina at 7ma by Read back OK. 08/21/2015 14:37 [facility] HEMATOLOGY MCH 26.2 27.0 - 31.0 08/21/2015 [facility] HEMATOLOGY MCHC 31.6 32.0 - 36.0 08/21/2015 [facility] HEMATOLOGY MCV 82.8 80.0 - 94.0 08/21/2015 [facility] HEMATOLOGY MPV 7.2 7.4 - 10.4 08/21/2015 [facility] Platelet 277 133 - 450 08/21/2015 [facility] HEMATOLOGY RDW 18.9 11.5 - 14.5 08/21/2015 [facility] BLOOD BANK RESULTS RBC product Product available (08/21/15 10:12 AM) 08/21/2015 [facility] CHEM PANEL Globulin 5.2 2.0 - 4.0 08/19/2015 [facility] CHEM PANEL A/G Ratio 0.3 0.7 - 1.6 08/19/2015 [facility] CHEM PANEL B/C Ratio 14 6 - 25 08/19/2015 [facility] CHEM PANEL Total Protein 6.9 6.4 - 8.4 08/19/2015 [facility] CHEM PANEL Alk Phos 74 39 - 136 08/19/2015 [facility] CHEM PANEL Bili Total 0.2 0.2 - 1.3 08/19/2015 [facility] CHEM PANEL ALT 12 0 - 65 08/19/2015 [facility] CHEM PANEL AST 10 0 - 37 08/19/2015 [facility] HEMATOLOGY RBC Morph Leeann l (08/19/15 5:34 AM) 08/19/2015 [facility] HEMATOLOGY Plt Morph Leeann l (08/19/15 5:34 AM) 08/19/2015 [facility] HEMATOLOGY PTT 30.4 22.9 - 35.8 08/19/2015 [facility] ELECTROLYTES POC Sodium 138 135 - 145 08/18/2015 [facility] ELECTROLYTES POC Hemoglobin 7.5 14.0 - 18.0 08/18/2015 [facility] ELECTROLYTES POC Glucose 78 70 - 99 08/18/2015 [facility] ELECTROLYTES POC Potassium 4.2 3.5 - 5.1 08/18/2015 [facility] ELECTROLYTES POC Hematocrit 22. 0 42.0 - 54.0 08/18/2015 [facility] BLOOD BANK RESULTS RBC product Product available 1 (08/18/15 9:34 AM) 08/18/2015 Result Comment: 08/18/2015 1 0:26 ANDER
CALLED AT 1025 TO AYUSH [facility] BLOOD BANK RESULTS ABO/Rh A POS 08/18/2015 [facility] BLOOD BANK RESULTS Antibody Scrn Negative (08/18/15 9:05 AM) 08/18/2015 [facility] CHEM PANEL A/G Ratio 0.4 0.7 - 1.6 08/18/2015 [facility] CHEM PANEL Globulin 4.5 2.0 - 4.0 08/18/2015 [facility] CHEM PANEL B/C Ratio 15 6 - 25 08/18/2015 [facility] CHEM PANEL Bili Total 0.3 0.2 - 1.3 08/18/2015 [facility] CHEM PANEL Total Protein 6.3 6.4 - 8.4 08/18/2015 [facility] CHEM PANEL Alk Phos 79 39 - 136 08/18/2015 [facility] CHEM PANEL AST 10 0 - 37 08/18/2015 [facility] CHEM PANEL ALT 14 0 - 65 08/18/2015 [facility] CHEM PANEL Bili Total 0.2 0.2 - 1.3 08/17/2015 [facility] CHEM PANEL Alk Phos 73 39 - 136 08/17/2015 [facility] CHEM PANEL Total Protein 6.2 6.4 - 8.4 08/17/2015 [facility] CHEM PANEL ALT 12 0 - 65 08/17/2015 [facility] CHEM PANEL AST 12 0 - 37 08/17/2015 [facility] CHEM PANEL A/G Ratio 0.4 0.7 - 1.6 08/17/2015 [facility] CHEM PANEL Globulin 4.4 2.0 - 4.0 08/17/2015 [facility] CHEM PANEL B/C Ratio 18 6 - 25 08/17/2015 [facility] HEMATOLOGY Plt Morph Leeann l (08/17/15 6:20 AM) 08/17/2015 [facility] HEMATOLOGY RBC Morph Leeann l (08/17/15 6:20 AM) 08/17/2015 [facility] TOXICOLOGY Amikacin Lvl <2.5 08/16/2015 [facility] TOXICOLOGY Amikacin Lvl 6.9 08/15/2015 [facility] TOXICOLOGY Amikacin Lvl <2.5 08/14/2015 [facility] HEMATOLOGY RBC Morph Leeann l (08/14/15 4:30 AM) 08/14/2015 [facility] HEMATOLOGY Toxic Gran Moder ate *ABN* (08/13/15 5:01 AM) None Seen 08/13/2015 [facility] HEMATOLOGY Hypochrom 1+ (08/13/15 5:01 AM) None Seen 08/13/2015 [facility] TOXICOLOGY Vanco Lvl 17.2 08/13/2015 [facility] IMMUNOLOGY Prealbumin 9.0 18.0 - 45.0 08/13/2015 [facility] TOXICOLOGY Vanco Lvl 27.7 08/12/2015 [facility] CHEM PANEL Lactic Acid Lvl 0.9 0.5 - 2.2 08/11/2015 [facility] CHEM PANEL Ammonia 47.0 <=45.0 uMol/L 08/11/2015 [facility] HEMATOLOGY Bands 5.0 0.0 - 11.0 08/11/2015 [facility] IMMUNOLOGY C-REACTIVE PROTEIN 94.8 <=2.9 mg/L 08/11/2015 [facility] TOXICOLOGY Vanco Lvl 14.2 08/11/2015 [facility] CHEM PANEL Magnesium Lvl 3.0 1.8 - 2.4 08/10/2015 [facility] CHEM PANEL Magnesium Lvl 3.7 1.8 - 2.4 08/09/2015 Result Comment: Critical Result(s) jamil d to Cierra Whitman at 08/09/2015 19:21_ by KB_. Read back OK. [facility] BACTERIAL - SEROLOGY MRSA by PCR Positive 1 *ABN* (08/09/15 6:32 AM) 08/09/2015 Result Comment: "Significant Findings called to Cierra Hirsch at 08/09/2015 21:17 by SBA.Read Back OK." [facility] CHEM PANEL Magnesium Lvl 1.4 1.8 - 2.4 08/09/2015 [facility] IMMUNOLOGY C-REACTIVE PROTEIN 234.0 <=2.9 mg/L 08/09/2015 [facility] CHEM PANEL Lactic Acid Lvl 3.0 0.5 - 2.2 08/09/2015 [facility] HEMATOLOGY PT 18.7 12.0 - 14.7 08/09/2015 [facility] HEMATOLOGY PTT 38.1 22.9 - 35.8 08/09/2015 [facility] HEMATOLOGY INR 1.53 0.85 - 1.17 08/09/2015 [facility] DRUG SCREEN U Cocaine Scr Nega tive *NA* (08/08/15 5:39 PM) Negative 08/08/2015 [facility] DRUG SCREEN U Benzodia Scr Posi tive *ABN* (08/08/15 5:39 PM) Negative 08/08/2015 [facility] DRUG SCREEN U Chelsie Scr Nega tive *NA* (08/08/15 5:39 PM) Negative 08/08/2015 [facility] DRUG SCREEN U Amph Scr Nega tive *NA* (08/08/15 5:39 PM) Negative 08/08/2015 [facility] DRUG SCREEN U Opiate Scr Posi tive *ABN* (08/08/15 5:39 PM) Negative 08/08/2015 [facility] DRUG SCREEN UDS Note See Note (08/08/15 5:39 PM) 08/08/2015 [facility] DRUG SCREEN U Phencyc Scr Nega tive *NA* (08/08/15 5:39 PM) Negative 08/08/2015 [facility] DRUG SCREEN U Cannab Scr Posi tive *ABN* (08/08/15 5:39 PM) Negative 08/08/2015 [facility] HEMATOLOGY INR 1.51 0.85 - 1.17 08/08/2015 [facility] HEMATOLOGY PT 18.5 12.0 - 14.7 08/08/2015 [facility] HEMATOLOGY PTT 31.5 22.9 - 35.8 08/08/2015 [facility] URINE AND STOOL UA Ketones Negative 08/08/2015 [facility] URINE AND STOOL UA Urobilinogen <=1.0 mg/dL 0.1 - 1.0 08/08/2015 [facility] URINE AND STOOL Micro? Performed *NA* (08/08/15 5:39 PM) 08/08/2015 [facility] URINE AND STOOL UA Color Ken 08/08/2015 [facility] URINE AND STOOL UA Mucus Few /LPF None Seen /LPF 08/08/2015 [facility] URINE AND STOOL UA Bacteria Many /HPF None Seen /HPF 08/08/2015 [facility] URINE AND STOOL UA RBC 53 0 - 2 08/08/2015 [facility] URINE AND STOOL UA WBC >182 0 - 5 08/08/2015 [facility] URINE AND STOOL UA Leuk Est Moderate *ABN* (08/08/15 5:39 PM) Negative 08/08/2015 [facility] URINE AND STOOL UA Nitrite Negative (08/08/15 5:39 PM) Negative 08/08/2015 [facility] URINE AND STOOL UA pH 6.0 5.0 - 8.0 08/08/2015 [facility] URINE AND STOOL UA Spec Grav 1.013 <=1.030 08/08/2015 [facility] URINE AND STOOL UA Turbidity Marked *ABN* (08/08/15 5:39 PM) Clear 08/08/2015 [facility] URINE AND STOOL UA Blood Moderate *ABN* (08/08/15 5:39 PM) Negative 08/08/2015 [facility] URINE AND STOOL UA Bili Negative *NA* (08/08/15 5:39 PM) Negative 08/08/2015 [facility] URINE AND STOOL UA Glucose Negative mg/dL Negative mg/dL 08/08/2015 [facility] URINE AND STOOL UA Protein 100 mg/dL Negative mg/dL 08/08/2015 [facility] BLOOD BANK RESULTS Antibody Scrn Negative (08/08/15 3:29 PM) 08/08/2015 [facility] BLOOD BANK RESULTS ABO/Rh A POS 08/08/2015 [facility] CARDIAC ENZYMES Troponin-I <0.02 0.00 - 0.40 08/08/2015 [facility] CHEM PANEL Lactic Acid Lvl 3.6 0.5 - 2.2 08/08/2015 [facility] TOXICOLOGY Ethanol Lvl <3 08/08/2015 [facility] TOXICOLOGY Etoh (%) <0.003 08/08/2015 [facility] CHEM PANEL Ammonia 51.0 <=45.0 uMol/L 08/08/2015 [facility] CHEM PANEL Albumin Lvl 2.2 3.5 - 5.0 06/21/2015 [facility] CHEM PANEL Globulin 5.1 2.0 - 4.0 06/21/2015 [facility] CHEM PANEL Total Protein 7.3 6.4 - 8.4 06/21/2015 [facility] CHEM PANEL Alk Phos 127 39 - 136 06/21/2015 [facility] CHEM PANEL A/G Ratio 0.4 0.7 - 1.6 06/21/2015 [facility] CHEM PANEL ALT 39 0 - 65 06/21/2015 [facility] CHEM PANEL AST 33 0 - 37 06/21/2015 [facility] CHEM PANEL Bili Direct 0.1 0.0 - 0.3 06/21/2015 [facility] CHEM PANEL Bili Total 0.5 0.2 - 1.3 06/21/2015 [facility] CHEM PANEL Bili Indirect 0.4 0.0 - 1.0 06/21/2015 [facility] ELECTROLYTES AGAP 12.8 10.0 - 20.0 06/21/2015 [facility] ELECTROLYTES eGFR 117 06/21/2015 Result Comment: The [...] should be multiplied by the estimated BMI. [facility] ELECTROLYTES Sodium Lvl 140 135 - 145 06/21/2015 [facility] ELECTROLYTES Potassium Lvl 4.8 3.5 - 5.1 06/21/2015 [facility] ELECTROLYTES Chloride Lvl 105 95 - 109 06/21/2015 [facility] ELECTROLYTES Calcium Lvl 9.1 8.5 - 10.5 06/21/2015 [facility] ELECTROLYTES Creatinine Lvl 0.8 5 0.50 - 1.40 06/21/2015 [facility] ELECTROLYTES CO2 27 24 - 32 06/21/2015 [facility] ELECTROLYTES BUN 19 7 - 22 06/21/2015 [facility] ELECTROLYTES Glucose Lvl 74 70 - 99 06/21/2015 [facility] HEMATOLOGY Hgb 9.9 14.0 - 18.0 06/21/2015 [facility] HEMATOLOGY Hct 31.0 42.0 - 54.0 06/21/2015 [facility] HEMATOLOGY WBC 8.4 3.7 - 10.4 06/21/2015 [facility] HEMATOLOGY RBC 3.69 4.70 - 6.10 06/21/2015 [facility] HEMATOLOGY Platelet 559 133 - 450 06/21/2015 [facility] HEMATOLOGY MPV 6.9 7.4 - 10.4 06/21/2015 [facility] [facility] MCH 26.9 27.0 - 31.0 06/21/2015 [facility] HEMATOLOGY RDW 20.4 11.5 - 14.5 06/21/2015 [facility] HEMATOLOGY MCHC 31.9 32.0 - 36.0 06/21/2015 [facility] HEMATOLOGY MCV 84.2 80.0 - 94.0 06/21/2015 [facility] HEMATOLOGY Sed Rate >100 0 - 15 06/21/2015 [facility] HEMATOLOGY Lymphocytes # 2.7 1.0 - 5.5 06/21/2015 [facility] HEMATOLOGY Monocytes # 0.8 0.0 - 0.8 06/21/2015 [facility] HEMATOLOGY Eosinophils # 0.6 0.0 - 0.5 06/21/2015 [facility] HEMATOLOGY Basophils # 0.0 0.0 - 0.2 06/21/2015 [facility] HEMATOLOGY Segs 51.2 45.0 - 75.0 06/21/2015 [facility] HEMATOLOGY Basophils 0.6 0.0 - 1.0 06/21/2015 [facility] HEMATOLOGY Segs-Bands # 4.3 1.5 - 8.1 06/21/2015 [facility] HEMATOLOGY Eosinophils 6.7 0.0 - 4.0 06/21/2015 [facility] HEMATOLOGY Lymphocytes 32.6 20.0 - 40.0 06/21/2015 [facility] HEMATOLOGY Monocytes 8.9 2.0 - 12.0 06/21/2015 [facility] TOXICOLOGY Gent Lvl 0.4 06/21/2015 [facility] CARDIAC ENZYMES Total CK 29 12 - 191 06/20/2015 [facility] ELECTROLYTES Chloride Lvl 103 95 - 109 06/20/2015 [facility] ELECTROLYTES Glucose Lvl 80 70 - 99 06/20/2015 [facility] ELECTROLYTES Sodium Lvl 138 135 - 145 06/20/2015 [facility] ELECTROLYTES Calcium Lvl 9.1 8.5 - 10.5 06/20/2015 [facility] ELECTROLYTES CO2 30 24 - 32 06/20/2015 [facility] ELECTROLYTES Potassium Lvl 4.7 3.5 - 5.1 06/20/2015 [facility] ELECTROLYTES eGFR 98 06/20/2015 Result Comment: The [...] should be multiplied by the estimated BMI. [facility] ELECTROLYTES BUN 18 7 - 22 06/20/2015 [facility] ELECTROLYTES Creatinine Lvl 1.0 2 0.50 - 1.40 06/20/2015 [facility] ELECTROLYTES AGAP 9.7 10.0 - 20.0 06/20/2015 [facility] HEMATOLOGY WBC 7.1 3.7 - 10.4 06/20/2015 [facility] HEMATOLOGY MCH 26.6 27.0 - 31.0 06/20/2015 [facility] HEMATOLOGY MCV 83.6 80.0 - 94.0 06/20/2015 [facility] HEMATOLOGY Hct 31.2 42.0 - 54.0 06/20/2015 [facility] HEMATOLOGY Hgb 9.9 14.0 - 18.0 06/20/2015 [facility] HEMATOLOGY RBC 3.74 4.70 - 6.10 06/20/2015 [facility] HEMATOLOGY Platelet 513 133 - 450 06/20/2015 [facility] HEMATOLOGY RDW 19.6 11.5 - 14.5 06/20/2015 [facility] HEMATOLOGY MCHC 31.8 32.0 - 36.0 06/20/2015 [facility] HEMATOLOGY MPV 6.7 7.4 - 10.4 06/20/2015 [facility] HEMATOLOGY Monocytes 13.5 2.0 - 12.0 06/20/2015 [facility] HEMATOLOGY Lymphocytes 38.8 20.0 - 40.0 06/20/2015 [facility] HEMATOLOGY Segs 40.1 45.0 - 75.0 06/20/2015 [facility] HEMATOLOGY Monocytes # 1.0 0.0 - 0.8 06/20/2015 [facility] HEMATOLOGY Lymphocytes # 2.7 1.0 - 5.5 06/20/2015 [facility] HEMATOLOGY Segs-Bands # 2.8 1.5 - 8.1 06/20/2015 [facility] HEMATOLOGY Basophils 0.7 0.0 - 1.0 06/20/2015 [facility] HEMATOLOGY Eosinophils 6.9 0.0 - 4.0 06/20/2015 [facility] HEMATOLOGY Eosinophils # 0.5 0.0 - 0.5 06/20/2015 [facility] TOXICOLOGY Gent Lvl 2.6 06/20/2015 [facility] HEMATOLOGY Segs-Bands # 3.0 1.5 - 8.1 06/19/2015 [facility] HEMATOLOGY Lymphocytes # 2.4 1.0 - 5.5 06/19/2015 [facility] HEMATOLOGY Monocytes # 0.8 0.0 - 0.8 06/19/2015 [facility] HEMATOLOGY Basophils 0.6 0.0 - 1.0 06/19/2015 [facility] HEMATOLOGY Eosinophils 5.5 0.0 - 4.0 06/19/2015 [facility] HEMATOLOGY Monocytes 12.1 2.0 - 12.0 06/19/2015 [facility] HEMATOLOGY Basophils # 0.0 0.0 - 0.2 06/19/2015 [facility] HEMATOLOGY Eosinophils # 0.4 0.0 - 0.5 06/19/2015 [facility] HEMATOLOGY Segs 45.4 45.0 - 75.0 06/19/2015 [facility] HEMATOLOGY Lymphocytes 36.4 20.0 - 40.0 06/19/2015 [facility] HEMATOLOGY MCV 83.5 80.0 - 94.0 06/19/2015 [facility] HEMATOLOGY Hct 28.3 42.0 - 54.0 06/19/2015 [facility] HEMATOLOGY WBC 6.5 3.7 - 10.4 06/19/2015 [facility] HEMATOLOGY Hgb 9.0 14.0 - 18.0 06/19/2015 [facility] HEMATOLOGY RBC 3.38 4.70 - 6.10 06/19/2015 [facility] HEMATOLOGY Platelet 552 133 - 450 06/19/2015 [facility] HEMATOLOGY MPV 7.2 7.4 - 10.4 06/19/2015 [facility] HEMATOLOGY MCH 26.6 27.0 - 31.0 06/19/2015 [facility] HEMATOLOGY RDW 19.7 11.5 - 14.5 06/19/2015 [facility] HEMATOLOGY MCHC 31.8 32.0 - 36.0 06/19/2015 [facility] ELECTROLYTES AGAP 11.6 10.0 - 20.0 06/19/2015 [facility] ELECTROLYTES Potassium Lvl 4.6 3.5 - 5.1 06/19/2015 [facility] ELECTROLYTES Chloride Lvl 106 95 - 109 06/19/2015 [facility] ELECTROLYTES Sodium Lvl 140 135 - 145 06/19/2015 [facility] ELECTROLYTES Calcium Lvl 9.0 8.5 - 10.5 06/19/2015 [facility] ELECTROLYTES CO2 27 24 - 32 06/19/2015 [facility] ELECTROLYTES BUN 16 7 - 22 06/19/2015 [facility] ELECTROLYTES eGFR 98 06/19/2015 Result Comment: The [...] should be multiplied by the estimated BMI. [facility] ELECTROLYTES Creatinine Lvl 1.0 2 0.50 - 1.40 06/19/2015 [facility] ELECTROLYTES Glucose Lvl 95 70 - 99 06/19/2015 [facility] CHEM PANEL Magnesium Lvl 1.8 1.8 - 2.4 06/18/2015 [facility] CHEM PANEL Phosphorus 4.4 2.5 - 4.5 06/18/2015 [facility] HEMATOLOGY PT 14.2 12.0 - 14.7 06/18/2015 [facility] HEMATOLOGY PTT 38.9 22.9 - 35.8 06/18/2015 [facility] HEMATOLOGY INR 1.07 0.85 - 1.17 06/18/2015 [facility] HEMATOLOGY Plt Morph Leeann l (06/18/15 5:58 AM) 06/18/2015 [facility] HEMATOLOGY RBC Morph Leeann l (06/18/15 5:58 AM) 06/18/2015 [facility] CHEM PANEL Lactic Acid Lvl 2.6 0.5 - 2.2 06/17/2015 [facility] CHEM PANEL Procalcitonin Lvl <0.05 0.00 - 0.10 06/17/2015 [facility] HEMATOLOGY Basophils # 0.1 0.0 - 0.2 06/17/2015 [facility] IMMUNOLOGY C-REACTIVE PROTEIN 139.0 <=2.9 mg/L 06/17/2015 [facility] URINE AND STOOL UA Urobilinogen <=1.0 mg/dL 0.1 - 1.0 06/17/2015 [facility] URINE AND STOOL UA Ketones Negative 06/17/2015 [facility] URINE AND STOOL UA Color Yellow *NA* (06/16/15 7:01 PM) Yellow 06/17/2015 [facility] URINE AND STOOL UA Turbidity Marked *ABN* (06/16/15 7:01 PM) Clear 06/17/2015 [facility] URINE AND STOOL UA Glucose Negative mg/dL Negative mg/dL 06/17/2015 [facility] URINE AND STOOL UA Bili Negative *NA* (06/16/15 7:01 PM) Negative 06/17/2015 [facility] URINE AND STOOL UA Nitrite Negative (06/16/15 7:01 PM) Negative 06/17/2015 [facility] URINE AND STOOL UA pH 6.0 5.0 - 8.0 06/17/2015 [facility] URINE AND STOOL UA Protein 30 mg/dL Negative mg/dL 06/17/2015 [facility] URINE AND STOOL UA Spec Grav 1.011 <=1.030 06/17/2015 [facility] URINE AND STOOL UA Leuk Est Large *ABN* (06/16/15 7:01 PM) Negative 06/17/2015 [facility] URINE AND STOOL UA Sq Epi Few /LPF Few /LPF 06/17/2015 [facility] URINE AND STOOL UA WBC >182 0 - 5 06/17/2015 [facility] URINE AND STOOL UA RBC 19 0 - 2 06/17/2015 [facility] URINE AND STOOL UA Blood Negative (06/16/15 7:01 PM) Negative 06/17/2015 [facility] URINE AND STOOL UA Bacteria Few /HPF None Seen /HPF 06/17/2015 [facility] ELECTROLYTES AGAP 9.1 10.0 - 20.0 06/04/2015 [facility] ELECTROLYTES eGFR 90 06/04/2015 Result Comment: [...] should be multiplied by the estimated BMI. [facility] ELECTROLYTES Chloride Lvl 102 95 - 109 06/04/2015 [facility] ELECTROLYTES Potassium Lvl 5.1 3.5 - 5.1 06/04/2015 [facility] ELECTROLYTES Sodium Lvl 137 135 - 145 06/04/2015 [facility] ELECTROLYTES Creatinine Lvl 1.1 0.5 - 1.4 06/04/2015 [facility] ELECTROLYTES BUN 15 7 - 22 06/04/2015 [facility] ELECTROLYTES Glucose Lvl 86 70 - 99 06/04/2015 [facility] ELECTROLYTES CO2 31 24 - 32 06/04/2015 [facility] ELECTROLYTES Calcium Lvl 8.6 8.5 - 10.5 06/04/2015 [facility] HEMATOLOGY MPV 6.4 7.4 - 10.4 06/04/2015 [facility] HEMATOLOGY Platelet 480 133 - 450 06/04/2015 [facility] HEMATOLOGY MCH 26.7 27.0 - 31.0 06/04/2015 [facility] HEMATOLOGY Hct 30.8 42.0 - 54.0 06/04/2015 [facility] HEMATOLOGY Hgb 9.8 14.0 - 18.0 06/04/2015 [facility] HEMATOLOGY MCV 84.2 80.0 - 94.0 06/04/2015 [facility] HEMATOLOGY RDW 19.8 11.5 - 14.5 06/04/2015 [facility] HEMATOLOGY MCHC 31.7 32.0 - 36.0 06/04/2015 [facility] HEMATOLOGY RBC 3.66 4.70 - 6.10 06/04/2015 [facility] HEMATOLOGY WBC 7.9 3.7 - 10.4 06/04/2015 [facility] HEMATOLOGY Basophils # 0.0 0.0 - 0.2 06/04/2015 [facility] HEMATOLOGY Eosinophils # 0.3 0.0 - 0.5 06/04/2015 [facility] HEMATOLOGY Lymphocytes 31.5 20.0 - 40.0 06/04/2015 [facility] HEMATOLOGY Monocytes 8.0 2.0 - 12.0 06/04/2015 [facility] HEMATOLOGY Segs 56.5 45.0 - 75.0 06/04/2015 [facility] HEMATOLOGY Lymphocytes # 2.5 1.0 - 5.5 06/04/2015 [facility] HEMATOLOGY Monocytes # 0.6 0.0 - 0.8 06/04/2015 [facility] HEMATOLOGY Segs-Bands # 4.4 1.5 - 8.1 06/04/2015 [facility] HEMATOLOGY Basophils 0.4 0.0 - 1.0 06/04/2015 [facility] HEMATOLOGY Eosinophils 3.6 0.0 - 4.0 06/04/2015 [facility] ELECTROLYTES AGAP 9.6 10.0 - 20.0 06/03/2015 [facility] ELECTROLYTES eGFR 90 06/03/2015 Result Comment: [...] be multiplied by the estimated BMI. [facility] ELECTROLYTES Potassium Lvl 4.6 3.5 - 5.1 06/03/2015 [facility] ELECTROLYTES Sodium Lvl 140 135 - 145 06/03/2015 [facility] ELECTROLYTES Glucose Lvl 81 70 - 99 06/03/2015 [facility] ELECTROLYTES Creatinine Lvl 1.1 0.5 - 1.4 06/03/2015 [facility] ELECTROLYTES BUN 11 7 - 22 06/03/2015 [facility] ELECTROLYTES Chloride Lvl 105 95 - 109 06/03/2015 [facility] ELECTROLYTES CO2 30 24 - 32 06/03/2015 [facility] ELECTROLYTES Calcium Lvl 8.6 8.5 - 10.5 06/03/2015 [facility] HEMATOLOGY PT 14.0 12.0 - 14.7 06/03/2015 [facility] HEMATOLOGY INR 1.05 0.85 - 1.17 06/03/2015 [facility] HEMATOLOGY MCHC 30.6 32.0 - 36.0 06/03/2015 [facility] HEMATOLOGY MCV 84.8 80.0 - 94.0 06/03/2015 [facility] HEMATOLOGY MCH 26.0 27.0 - 31.0 06/03/2015 [facility] HEMATOLOGY Hct 30.4 42.0 - 54.0 06/03/2015 [facility] HEMATOLOGY Hgb 9.3 14.0 - 18.0 06/03/2015 [facility] HEMATOLOGY WBC 8.5 3.7 - 10.4 06/03/2015 [facility] HEMATOLOGY RBC 3.58 4.70 - 6.10 06/03/2015 [facility] HEMATOLOGY MPV 6.4 7.4 - 10.4 06/03/2015 [facility] HEMATOLOGY Platelet 494 133 - 450 06/03/2015 [facility] HEMATOLOGY RDW 19.1 11.5 - 14.5 06/03/2015 [facility] HEMATOLOGY Monocytes 7.3 2.0 - 12.0 06/03/2015 [facility] HEMATOLOGY Lymphocytes 28.6 20.0 - 40.0 06/03/2015 [facility] HEMATOLOGY Segs 60.1 45.0 - 75.0 06/03/2015 [facility] HEMATOLOGY Segs-Bands # 5.1 1.5 - 8.1 06/03/2015 [facility] HEMATOLOGY Eosinophils 3.5 0.0 - 4.0 06/03/2015 [facility] HEMATOLOGY Basophils 0.5 0.0 - 1.0 06/03/2015 [facility] HEMATOLOGY Eosinophils # 0.3 0.0 - 0.5 06/03/2015 [facility] HEMATOLOGY Monocytes # 0.6 0.0 - 0.8 06/03/2015 [facility] HEMATOLOGY Lymphocytes # 2.4 1.0 - 5.5 06/03/2015 [facility] HEMATOLOGY Basophils # 0.0 0.0 - 0.2 06/03/2015 [facility] TOXICOLOGY Vanco Lvl 3.6 06/03/2015 [facility] TOXICOLOGY Vanco Lvl 5.0 06/03/2015 [facility] CHEM PANEL eGFR 101 06/01/2015 Result [...] should be multiplied by the estimated BMI. [facility] CHEM PANEL Sodium Lvl 139 135 - 145 06/01/2015 [facility] CHEM PANEL Potassium Lvl 4.7 3.5 - 5.1 06/01/2015 [facility] CHEM PANEL Chloride Lvl 106 95 - 109 06/01/2015 [facility] CHEM PANEL Glucose Lvl 81 70 - 99 06/01/2015 [facility] CHEM PANEL Calcium Lvl 8.4 8.5 - 10.5 06/01/2015 [facility] CHEM PANEL CO2 28 24 - 32 06/01/2015 [facility] CHEM PANEL BUN 12 7 - 22 06/01/2015 [facility] CHEM PANEL Creatinine Lvl 1.0 0.5 - 1.4 06/01/2015 [facility] CHEM PANEL AGAP 9.7 10.0 - 20.0 06/01/2015 [facility] HEMATOLOGY MPV 6.5 7.4 - 10.4 06/01/2015 [facility] HEMATOLOGY Platelet 439 133 - 450 06/01/2015 [facility] HEMATOLOGY MCV 84.2 80.0 - 94.0 06/01/2015 [facility] HEMATOLOGY MCH 26.5 27.0 - 31.0 06/01/2015 [facility] HEMATOLOGY RDW 18.7 11.5 - 14.5 06/01/2015 [facility] HEMATOLOGY MCHC 31.5 32.0 - 36.0 06/01/2015 [facility] HEMATOLOGY RBC 3.51 4.70 - 6.10 06/01/2015 [facility] HEMATOLOGY Hct 29.5 42.0 - 54.0 06/01/2015 [facility] HEMATOLOGY Hgb 9.3 14.0 - 18.0 06/01/2015 [facility] HEMATOLOGY WBC 7.8 3.7 - 10.4 06/01/2015 [facility] HEMATOLOGY Lymphocytes # 2.2 1.0 - 5.5 06/01/2015 [facility] HEMATOLOGY Basophils # 0.0 0.0 - 0.2 06/01/2015 [facility] HEMATOLOGY Monocytes # 0.7 0.0 - 0.8 06/01/2015 [facility] HEMATOLOGY Eosinophils # 0.3 0.0 - 0.5 06/01/2015 [facility] HEMATOLOGY Segs-Bands # 4.6 1.5 - 8.1 06/01/2015 [facility] HEMATOLOGY Eosinophils 3.5 0.0 - 4.0 06/01/2015 [facility] HEMATOLOGY Monocytes 9.3 2.0 - 12.0 06/01/2015 [facility] HEMATOLOGY Basophils 0.6 0.0 - 1.0 06/01/2015 [facility] HEMATOLOGY Segs 58.6 45.0 - 75.0 06/01/2015 [facility] HEMATOLOGY Lymphocytes 28.0 20.0 - 40.0 06/01/2015 [facility] TOXICOLOGY Vanco Tr TND 0245 06/01/2015 [facility] TOXICOLOGY Vanco Tr 26.2 06/01/2015 [facility] TOXICOLOGY Vanco Tr TND 0000 06/01/2015 [facility] TOXICOLOGY Vanco Tr 21.2 06/01/2015 [facility] CHEM PANEL AST 14 0 - 37 05/31/2015 [facility] CHEM PANEL Bili Total 0.3 0.2 - 1.3 05/31/2015 [facility] CHEM PANEL Alk Phos 95 39 - 136 05/31/2015 [facility] CHEM PANEL ALT 16 0 - 65 05/31/2015 [facility] CHEM PANEL Total Protein 7.1 6.4 - 8.4 05/31/2015 [facility] CHEM PANEL Albumin Lvl 1.6 3.5 - 5.0 05/31/2015 [facility] CHEM PANEL B/C Ratio 7 6 - 25 05/31/2015 [facility] CHEM PANEL Globulin 5.5 2.0 - 4.0 05/31/2015 [facility] CHEM PANEL A/G Ratio 0.3 0.7 - 1.6 05/31/2015 [facility] URINE AND STOOL Occult Bld Stl Negative (05/30/15 4:25 PM) Negative 05/30/2015 [facility] URINE AND STOOL UA Mucus Rare /LPF None Seen /LPF 05/30/2015 [facility] URINE AND STOOL UA Bacteria Few /HPF None Seen /HPF 05/30/2015 [facility] URINE AND STOOL UA WBC 11-20 /HPF None Seen /HPF 05/30/2015 [facility] URINE AND STOOL UA RBC 3-5 /HPF 0 - 2 05/30/2015 [facility] URINE AND STOOL UA Hyph Yeast Occasional /HPF 05/30/2015 [facility] URINE AND STOOL UA [place] Yeast Occasional /HPF None Seen /HPF 05/30/2015 [facility] URINE AND STOOL UA Sq Epi Occasional /LPF Few /LPF 05/30/2015 [facility] URINE AND STOOL Micro? Performed (05/30/15 3:15 PM) 05/30/2015 [facility] BLOOD BANK RESULTS RBC product Product available (05/30/15 2:19 PM) 05/30/2015 [facility] BLOOD BANK RESULTS ABO/Rh A POS 05/30/2015 [facility] BLOOD BANK RESULTS Antibody Scrn Negative (05/30/15 12:20 PM) 05/30/2015 [facility] HEMATOLOGY Retic Auto 0.8 0.5 - 1.5 05/30/2015 [facility] CHEM PANEL Lactic Acid Lvl 1.6 0.5 - 2.2 05/30/2015 [facility] CHEM PANEL Magnesium Lvl 1.6 1.8 - 2.4 05/30/2015 [facility] CHEM PANEL Albumin Lvl 1.4 3.5 - 5.0 05/30/2015 [facility] CHEM PANEL Phosphorus 3.0 2.5 - 4.5 05/30/2015 [facility] IMMUNOLOGY Prealbumin 3.1 18.0 - 45.0 05/29/2015 [facility] TOXICOLOGY Vanco Tr 19.7 05/29/2015 [facility] TOXICOLOGY Vanco Tr TND 0830 05/29/2015 [facility] CHEM PANEL Bili Total 0.2 0.2 - 1.3 05/28/2015 [facility] CHEM PANEL Alk Phos 100 39 - 136 05/28/2015 [facility] CHEM PANEL AST 14 0 - 37 05/28/2015 [facility] CHEM PANEL Globulin 4.4 2.0 - 4.0 05/28/2015 [facility] CHEM PANEL Albumin Lvl 1.6 3.5 - 5.0 05/28/2015 [facility] CHEM PANEL ALT 17 0 - 65 05/28/2015 [facility] CHEM PANEL A/G Ratio 0.4 0.7 - 1.6 05/28/2015 [facility] CHEM PANEL Total Protein 6.0 6.4 - 8.4 05/28/2015 [facility] CHEM PANEL B/C Ratio 9 6 - 25 05/28/2015 [facility] HEMATOLOGY PTT 42.5 22.9 - 35.8 05/28/2015 [facility] URINE AND STOOL UA Leuk Est Moderate *ABN* (05/27/15 10:28 PM) Negative 05/28/2015 [facility] URINE AND STOOL UA Nitrite Positive *ABN* (05/27/15 10:28 PM) Negative 05/28/2015 [facility] URINE AND STOOL UA Sq Epi Few /LPF Few /LPF 05/28/2015 [facility] URINE AND STOOL Micro? Performed (05/27/15 10:28 PM) 05/28/2015 [facility] URINE AND STOOL UA RBC 6-10 /HPF 0 - 2 05/28/2015 [facility] URINE AND STOOL UA Amorph Michelle Moderate /HPF None Seen /HPF 05/28/2015 [facility] URINE AND STOOL UA WBC >100 /HPF None Seen /HPF 05/28/2015 [facility] URINE AND STOOL UA Renal Epi 0-2 /LPF None Seen /LPF 05/28/2015 [facility] URINE AND STOOL UA Bacteria Many /HPF None Seen /HPF 05/28/2015 [facility] URINE AND STOOL UA Glucose Negative (05/27/15 10:28 PM) Negative 05/28/2015 [facility] URINE AND STOOL UA Ketones Negative *NA* (05/27/15 10:28 PM) Negative 05/28/2015 [facility] URINE AND STOOL UA Bili Negative *NA* (05/27/15 10:28 PM) Negative 05/28/2015 [facility] URINE AND STOOL UA pH 6.5 5.0 - 8.0 05/28/2015 [facility] URINE AND STOOL UA Protein 100 mg/dL Negative mg/dL 05/28/2015 [facility] URINE AND STOOL UA Urobilinogen 0.2 0.1 - 1.0 05/28/2015 [facility] URINE AND STOOL UA Blood Large *ABN* (05/27/15 10:28 PM) Negative 05/28/2015 [facility] URINE AND STOOL UA Turbidity Cloudy *ABN* (05/27/15 10:28 PM) Clear 05/28/2015 [facility] URINE AND STOOL UA Spec Grav 1.015 <=1.030 05/28/2015 [facility] URINE AND STOOL UA Color Yellow (05/27/15 10:28 PM) Yellow 05/28/2015 [facility] CHEM PANEL Lactic Acid Lvl 2.3 0.5 - 2.2 05/28/2015 [facility] TOXICOLOGY Salicylate Lvl 2.5 0.0 - 30.0 05/28/2015 [facility] TOXICOLOGY Acetaminoph Lvl 5 10 - 20 05/28/2015 [facility] CHEM PANEL Globulin 5.8 2.0 - 4.0 05/27/2015 [facility] CHEM PANEL A/G Ratio 0.3 0.7 - 1.6 05/27/2015 [facility] CHEM PANEL B/C Ratio 9 6 - 25 05/27/2015 [facility] CHEM PANEL Total Protein 7.7 6.4 - 8.4 05/27/2015 [facility] CHEM PANEL ALT 22 0 - 65 05/27/2015 [facility] CHEM PANEL AST 17 0 - 37 05/27/2015 [facility] CHEM PANEL Alk Phos 113 39 - 136 05/27/2015 [facility] CHEM PANEL Bili Total 0.3 0.2 - 1.3 05/27/2015 [facility] HEMATOLOGY Toxic Gran Moder ate *ABN* (05/27/15 6:54 PM) None Seen 05/27/2015 [facility] HEMATOLOGY Hypochrom 1+ (05/27/15 6:54 PM) None Seen 05/27/2015 [facility] HEMATOLOGY Stomatocyte Moder ate *ABN* (05/27/15 6:54 PM) None Seen 05/27/2015 [facility] HEMATOLOGY Rouleaux Prese nt *ABN* (05/27/15 6:54 PM) None Seen 05/27/2015 [facility] HEMATOLOGY Plt Morph Leeann l (05/27/15 6:54 PM) 05/27/2015 [facility] URINE AND STOOL UA Glucose Negative (05/27/15 6:54 PM) Negative 05/27/2015 [facility] URINE AND STOOL UA Ketones Negative *NA* (05/27/15 6:54 PM) Negative 05/27/2015 [facility] URINE AND STOOL UA Nitrite Positive *ABN* (05/27/15 6:54 PM) Negative 05/27/2015 [facility] URINE AND STOOL UA Sq Epi None Seen (05/27/15 6:54 PM) Few 05/27/2015 [facility] URINE AND STOOL UA WBC 21-50 /HPF None Seen /HPF 05/27/2015 [facility] URINE AND STOOL UA Leuk Est Moderate *ABN* (05/27/15 6:54 PM) Negative 05/27/2015 [facility] URINE AND STOOL UA pH 6.0 5.0 - 8.0 05/27/2015 [facility] URINE AND STOOL UA Protein 30 mg/dL Negative mg/dL 05/27/2015 [facility] URINE AND STOOL UA Bili Negative *NA* (05/27/15 6:54 PM) Negative 05/27/2015 [facility] URINE AND STOOL UA Urobilinogen 0.2 0.1 - 1.0 05/27/2015 [facility] URINE AND STOOL UA Blood Small *ABN* (05/27/15 6:54 PM) Negative 05/27/2015 [facility] URINE AND STOOL UA Mucus None Seen (05/27/15 6:54 PM) None Seen 05/27/2015 [facility] URINE AND STOOL UA RBC 0-2 /HPF 0 - 2 05/27/2015 [facility] URINE AND STOOL UA Bacteria Moderate /HPF None Seen /HPF 05/27/2015 [facility] URINE AND STOOL UA Color Yellow *NA* (05/27/15 6:54 PM) Yellow 05/27/2015 [facility] URINE AND STOOL UA Spec Grav 1.010 <=1.030 05/27/2015 [facility] URINE AND STOOL UA Turbidity Slight Cloudy (05/27/15 6:54 PM) Clear 05/27/2015 [facility] CHEM PANEL Phosphorus 2.9 2.5 - 4.5 06/29/2014 [facility] [facility] CHEM PANEL Magnesium Lvl 2.0 1.8 - 2.4 06/29/2014 [facility] CHEM PANEL eGFR 115 06/29/2014 <sup>1</sup>Result [...] should be multiplied by the estimated BMI. [facility] CHEM PANEL Calcium Lvl 8.5 8.5 - 10.5 06/29/2014 [facility] CHEM PANEL Potassium Lvl 3.2 3.5 - 5.1 06/29/2014 [facility] CHEM PANEL Chloride Lvl 109 95 - 109 06/29/2014 [facility] CHEM PANEL CO2 27 24 - 32 06/29/2014 [facility] CHEM PANEL Glucose Lvl 109 70 - 99 06/29/2014 <sup>4</sup>Interpretive Data: Adult ref erence range values reflect the clinical guidelines
of the [place] [employer]. [facility] CHEM PANEL Creatinine Lvl 0.9 0.5 - 1.4 06/29/2014 [facility] CHEM PANEL Sodium Lvl 143 135 - 145 06/29/2014 [facility] CHEM PANEL BUN 8 7 - 22 06/29/2014 [facility] CHEM PANEL AGAP 10.2 10.0 - 20.0 06/29/2014 [facility] HEMATOLOGY RBC 3.34 4.70 - 6.10 06/29/2014 [facility] HEMATOLOGY Hgb 10.1 14.0 - 18.0 06/29/2014 [facility] HEMATOLOGY WBC 5.8 3.7 - 10.4 06/29/2014 [facility] HEMATOLOGY MCHC 33.2 32.0 - 36.0 06/29/2014 [facility] HEMATOLOGY MCV 90.7 80.0 - 94.0 06/29/2014 [facility] HEMATOLOGY Hct 30.3 42.0 - 54.0 06/29/2014 [facility] HEMATOLOGY MCH 30.1 27.0 - 31.0 06/29/2014 [facility] HEMATOLOGY RDW 16.1 11.5 - 14.5 06/29/2014 [facility] HEMATOLOGY Platelet 271 133 - 450 06/29/2014 [facility] HEMATOLOGY MPV 7.2 7.4 - 10.4 06/29/2014 [facility] HEMATOLOGY Monocytes # 0.6 0.0 - 0.8 06/29/2014 [facility] HEMATOLOGY Lymphocytes # 1.7 1.0 - 5.5 06/29/2014 [facility] HEMATOLOGY Eosinophils # 0.2 0.0 - 0.5 06/29/2014 [facility] HEMATOLOGY Segs-Bands # 3.2 1.5 - 8.1 06/29/2014 [facility] HEMATOLOGY Basophils 0.6 0.0 - 1.0 06/29/2014 [facility] HEMATOLOGY Basophils # 0.0 0.0 - 0.2 06/29/2014 [facility] HEMATOLOGY Segs 56.2 45.0 - 75.0 06/29/2014 [facility] HEMATOLOGY Monocytes 10.0 2.0 - 12.0 06/29/2014 [facility] HEMATOLOGY Lymphocytes 29.2 20.0 - 40.0 06/29/2014 [facility] HEMATOLOGY Eosinophils 4.0 0.0 - 4.0 06/29/2014 [facility] CHEM PANEL Magnesium Lvl 1.6 1.8 - 2.4 06/28/2014 [facility] CHEM PANEL eGFR 90 06/28/2014 <sup>2</sup>Result [...] should be multiplied by the estimated BMI. [facility] CHEM PANEL Bili Total 0.3 0.2 - 1.3 06/28/2014 [facility] CHEM PANEL Alk Phos 79 39 - 136 06/28/2014 [facility] CHEM PANEL AST 17 0 - 37 06/28/2014 [facility] CHEM PANEL Calcium Lvl 8.7 8.5 - 10.5 06/28/2014 [facility] CHEM PANEL AGAP 10.7 10.0 - 20.0 06/28/2014 [facility] CHEM PANEL CO2 25 24 - 32 06/28/2014 [facility] CHEM PANEL Chloride Lvl 111 95 - 109 06/28/2014 [facility] CHEM PANEL Potassium Lvl 3.7 3.5 - 5.1 06/28/2014 [facility] CHEM PANEL ALT 23 0 - 65 06/28/2014 [facility] CHEM PANEL A/G Ratio 0.6 0.7 - 1.6 06/28/2014 [facility] CHEM PANEL Globulin 3.8 2.0 - 4.0 06/28/2014 [facility] CHEM PANEL Albumin Lvl 2.3 3.5 - 5.0 06/28/2014 [facility] CHEM PANEL B/C Ratio 12 6 - 25 06/28/2014 [facility] CHEM PANEL Total Protein 6.1 6.4 - 8.4 06/28/2014 [facility] CHEM PANEL Glucose Lvl 84 70 - 99 06/28/2014 <sup>5</sup>Interpretive Data: Adult ref erence range values reflect the clinical guidelines
of the [place] [employer]. [facility] CHEM PANEL Sodium Lvl 143 135 - 145 06/28/2014 [facility] CHEM PANEL BUN 13 7 - 22 06/28/2014 [facility] CHEM PANEL Creatinine Lvl 1.1 0.5 - 1.4 06/28/2014 [facility] HEMATOLOGY MPV 7.5 7.4 - 10.4 06/28/2014 [facility] HEMATOLOGY Platelet 217 133 - 450 06/28/2014 [facility] HEMATOLOGY WBC 5.1 3.7 - 10.4 06/28/2014 [facility] HEMATOLOGY Hgb 9.6 14.0 - 18.0 06/28/2014 [facility] HEMATOLOGY MCHC 33.0 32.0 - 36.0 06/28/2014 [facility] HEMATOLOGY RBC 3.24 4.70 - 6.10 06/28/2014 [facility] HEMATOLOGY MCH 29.6 27.0 - 31.0 06/28/2014 [facility] HEMATOLOGY MCV 89.5 80.0 - 94.0 06/28/2014 [facility] HEMATOLOGY Hct 28.9 42.0 - 54.0 06/28/2014 [facility] HEMATOLOGY RDW 16.0 11.5 - 14.5 06/28/2014 [facility] HEMATOLOGY Segs 46.0 45.0 - 75.0 06/28/2014 [facility] HEMATOLOGY Basophils 0.5 0.0 - 1.0 06/28/2014 [facility] HEMATOLOGY Eosinophils 2.8 0.0 - 4.0 06/28/2014 [facility] HEMATOLOGY Lymphocytes 39.9 20.0 - 40.0 06/28/2014 [facility] HEMATOLOGY Monocytes 10.8 2.0 - 12.0 06/28/2014 [facility] HEMATOLOGY Segs-Bands # 2.4 1.5 - 8.1 06/28/2014 [facility] HEMATOLOGY Basophils # 0.0 0.0 - 0.2 06/28/2014 [facility] HEMATOLOGY Eosinophils # 0.1 0.0 - 0.5 06/28/2014 [facility] HEMATOLOGY Monocytes # 0.6 0.0 - 0.8 06/28/2014 [facility] HEMATOLOGY Lymphocytes # 2.0 1.0 - 5.5 06/28/2014 [facility] IMMUNOLOGY Prealbumin 10.7 18.0 - 45.0 06/28/2014 [facility] CHEM PANEL Magnesium Lvl 1.9 1.8 - 2.4 06/27/2014 [facility] CHEM PANEL B/C Ratio 12 6 - 25 06/27/2014 [facility] CHEM PANEL AGAP 9.6 10.0 - 20.0 06/27/2014 [facility] CHEM PANEL A/G Ratio 0.6 0.7 - 1.6 06/27/2014 [facility] CHEM PANEL Globulin 4.1 2.0 - 4.0 06/27/2014 [facility] CHEM PANEL eGFR 121 06/27/2014 <sup>3</sup>Result [...] should be multiplied by the estimated BMI. [facility] CHEM PANEL Potassium Lvl 3.6 3.5 - 5.1 06/27/2014 [facility] CHEM PANEL Sodium Lvl 141 135 - 145 06/27/2014 [facility] CHEM PANEL Total Protein 6.5 6.4 - 8.4 06/27/2014 [facility] CHEM PANEL Chloride Lvl 109 95 - 109 06/27/2014 [facility] CHEM PANEL CO2 26 24 - 32 06/27/2014 [facility] CHEM PANEL Albumin Lvl 2.4 3.5 - 5.0 06/27/2014 [facility] CHEM PANEL ALT 25 0 - 65 06/27/2014 [facility] CHEM PANEL Calcium Lvl 8.7 8.5 - 10.5 06/27/2014 [facility] CHEM PANEL AST 21 0 - 37 06/27/2014 [facility] CHEM PANEL Alk Phos 88 39 - 136 06/27/2014 [facility] CHEM PANEL Bili Total 0.2 0.2 - 1.3 06/27/2014 [facility] CHEM PANEL BUN 10 7 - 22 06/27/2014 [facility] CHEM PANEL Creatinine Lvl 0.8 0.5 - 1.4 06/27/2014 [facility] CHEM PANEL Glucose Lvl 90 70 - 99 06/27/2014 <sup>6</sup>Interpretive Data: Adult ref erence range values reflect the clinical guidelines
of the [place] [employer]. [facility] HEMATOLOGY MPV 7.7 7.4 - 10.4 06/27/2014 [facility] HEMATOLOGY MCHC 33.3 32.0 - 36.0 06/27/2014 [facility] HEMATOLOGY MCH 30.2 27.0 - 31.0 06/27/2014 [facility] HEMATOLOGY Platelet 216 133 - 450 06/27/2014 [facility] HEMATOLOGY RDW 16.3 11.5 - 14.5 06/27/2014 [facility] HEMATOLOGY MCV 90.8 80.0 - 94.0 06/27/2014 [facility] HEMATOLOGY Hct 30.9 42.0 - 54.0 06/27/2014 [facility] HEMATOLOGY RBC 3.41 4.70 - 6.10 06/27/2014 [facility] HEMATOLOGY Hgb 10.3 14.0 - 18.0 06/27/2014 [facility] HEMATOLOGY WBC 4.9 3.7 - 10.4 06/27/2014 [facility] HEMATOLOGY Eosinophils # 0.1 0.0 - 0.5 06/27/2014 [facility] HEMATOLOGY Basophils # 0.0 0.0 - 0.2 06/27/2014 [facility] HEMATOLOGY Monocytes # 0.4 0.0 - 0.8 06/27/2014 [facility] HEMATOLOGY Lymphocytes # 0.9 1.0 - 5.5 06/27/2014 [facility] HEMATOLOGY Eosinophils 2.4 0.0 - 4.0 06/27/2014 [facility] HEMATOLOGY Monocytes 8.3 2.0 - 12.0 06/27/2014 [facility] HEMATOLOGY Segs 70.0 45.0 - 75.0 06/27/2014 [facility] HEMATOLOGY Lymphocytes 18.9 20.0 - 40.0 06/27/2014 [facility] HEMATOLOGY Segs-Bands # 3.4 1.5 - 8.1 06/27/2014 [facility] HEMATOLOGY Basophils 0.4 0.0 - 1.0 06/27/2014 [facility] TOXICOLOGY Vanco Tr 16.3 06/27/2014 <sup>8</sup>Interpretive Data: Therapeutic Range:
Trough: 10 - 20 ug/mL
Peak: 20 - 40 ug/mL
Potential Toxicity: >80 ug/mL [facility] TOXICOLOGY Vanco Tr TND 1000 06/27/2014 [facility] CHEM PANEL Phosphorus 2.7 2.5 - 4.5 06/26/2014 [facility] HEMATOLOGY Sed Rate >100 mm/hr 0 - 15 06/26/2014 [facility] IMMUNOLOGY C-REACTIVE PROTEIN 249.0 <=2.9 mg/L 06/26/2014 [facility] TOXICOLOGY Salicylate Lvl <1.7 0.0 - 30.0 06/26/2014 [facility] CARDIAC ENZYMES CK MB Index 0.7 0.0 - 2.5 06/25/2014 [facility] CARDIAC ENZYMES CK MB 0.7 0.5 - 3.6 06/25/2014 [facility] CARDIAC ENZYMES Total CK 98 12 - 191 06/25/2014 [facility] CARDIAC ENZYMES Troponin-I <0.02 0.00 - 0.40 06/25/2014 [facility] CHEM PANEL Lipase Lvl 44 73 - 393 06/25/2014 [facility] CHEM PANEL Bili Total 0.3 0.2 - 1.3 06/25/2014 [facility] CHEM PANEL Alk Phos 112 39 - 136 06/25/2014 [facility] CHEM PANEL AST 34 0 - 37 06/25/2014 [facility] CHEM PANEL Globulin 5.0 2.0 - 4.0 06/25/2014 [facility] CHEM PANEL A/G Ratio 0.6 0.7 - 1.6 06/25/2014 [facility] CHEM PANEL B/C Ratio 21 6 - 25 06/25/2014 [facility] CHEM PANEL Total Protein 7.9 6.4 - 8.4 06/25/2014 [facility] CHEM PANEL ALT 34 0 - 65 06/25/2014 [facility] CHEM PANEL Albumin Lvl 2.9 3.5 - 5.0 06/25/2014 [facility] HEMATOLOGY RBC Morph Leeann l (06/25/14 5:55 PM) 06/25/2014 [facility] HEMATOLOGY Plt Morph Leeann l (06/25/14 5:55 PM) 06/25/2014 [facility] HEMATOLOGY Toxic Gran Moder ate *ABN* (06/25/14 5:55 PM) None Seen 06/25/2014 [facility] TOXICOLOGY Etoh (%) <0.003 06/25/2014 <sup>9</sup>Interpretive Data: Ethanol testing results should be used for medical purposes only.
Negative Range: <0.003%
Toxic Range: >0.25% [facility] TOXICOLOGY Ethanol Lvl <3 06/25/2014 <sup>10</sup>Interpretive Data: Negative Range: <3 mg/dL
Toxic Range: >250 mg/dL [facility] DRUG SCREEN UDS Note See Note [...]
Methadone 300 ng/mL&lt ;br/>Urine alcohol 20 mg/dL [facility] DRUG SCREEN U Cocaine Scr Nega tive *NA* (06/25/14 4:04 PM) Negative 06/25/2014 [facility] DRUG SCREEN U Opiate Scr Posi tive *ABN* (06/25/14 4:04 PM) Negative 06/25/2014 [facility] DRUG SCREEN U Phencyc Scr Nega tive *NA* (06/25/14 4:04 PM) Negative 06/25/2014 [facility] DRUG SCREEN U Cannab Scr Posi tive *ABN* (06/25/14 4:04 PM) Negative 06/25/2014 [facility] DRUG SCREEN U Chelsie Scr Nega tive *NA* (06/25/14 4:04 PM) Negative 06/25/2014 [facility] DRUG SCREEN U Amph Scr Nega tive *NA* (06/25/14 4:04 PM) Negative 06/25/2014 [facility] DRUG SCREEN U Benzodia Scr Posi tive *ABN* (06/25/14 4:04 PM) Negative 06/25/2014 [facility] URINE AND STOOL UA Mucus Few /LPF None Seen /LPF 06/25/2014 [facility] URINE AND STOOL UA RBC 11-20 /HPF 0 - 2 06/25/2014 [facility] URINE AND STOOL UA Bacteria Moderate /HPF None Seen /HPF 06/25/2014 [facility] URINE AND STOOL UA WBC 21-50 /HPF None Seen /HPF 06/25/2014 [facility] URINE AND STOOL UA Leuk Est Moderate *ABN* (06/25/14 4:04 PM) Negative 06/25/2014 [facility] URINE AND STOOL UA pH 6.0 5.0 - 8.0 06/25/2014 [facility] URINE AND STOOL UA Ketones Negative *NA* (06/25/14 4:04 PM) Negative 06/25/2014 [facility] URINE AND STOOL UA Spec Grav 1.020 <=1.030 06/25/2014 [facility] URINE AND STOOL UA Color Yellow *NA* (06/25/14 4:04 PM) Yellow 06/25/2014 [facility] URINE AND STOOL UA Turbidity Slight Cloudy (06/25/14 4:04 PM) Clear 06/25/2014 [facility] URINE AND STOOL UA Sq Epi Rare /LPF Few /LPF 06/25/2014 [facility] URINE AND STOOL UA Nitrite Positive *ABN* (06/25/14 4:04 PM) Negative 06/25/2014 [facility] URINE AND STOOL UA Urobilinogen 0.2 0.1 - 1.0 06/25/2014 [facility] URINE AND STOOL UA Blood Large *ABN* (06/25/14 4:04 PM) Negative 06/25/2014 [facility] URINE AND STOOL UA Bili Negative *NA* (06/25/14 4:04 PM) Negative 06/25/2014 [facility] URINE AND STOOL UA Protein 100 mg/dL Negative mg/dL 06/25/2014 [facility] URINE AND STOOL UA Glucose Negative (06/25/14 4:04 PM) Negative 06/25/2014 [facility] CHEMISTRY AGAP 12.1 10.0 - 20.0 05/22/2012 Normal [facility] CHEMISTRY eGFR 117 05/22/2012 NA <sup>1</sup>Result Comment: [...] should be multiplied by the estimated BMI. [facility] CHEMISTRY Sodium Lvl 137 135 - 145 05/22/2012 Normal [facility] CHEMISTRY BUN 18 7 - 22 05/22/2012 Normal [facility] CHEMISTRY Glucose Lvl 90 70 - 99 05/22/2012 Normal <sup>4</sup>Interpretive Data: Adult ref erence range values reflect the clinical guidelines
of the [place] [employer]. [facility] CHEMISTRY Chloride Lvl 104 95 - 109 05/22/2012 Normal [facility] CHEMISTRY Potassium Lvl 4.1 3.5 - 5.1 05/22/2012 Normal [facility] CHEMISTRY Calcium Lvl 9.3 8.5 - 10.5 05/22/2012 Normal [facility] CHEMISTRY CO2 25 24 - 32 05/22/2012 Normal [facility] CHEMISTRY Creatinine Lvl 0.9 0.5 - 1.4 05/22/2012 Normal [facility] HEMATOLOGY Monocytes 8.6 2.0 - 12.0 05/22/2012 Normal [facility] HEMATOLOGY Lymphocytes 39.1 20.0 - 40.0 05/22/2012 Normal [facility] HEMATOLOGY Basophils 0.5 0.0 - 1.0 05/22/2012 Normal [facility] HEMATOLOGY Eosinophils 2.5 0.0 - 4.0 05/22/2012 Normal [facility] HEMATOLOGY Segs-Bands # 4.3 1.5 - 8.1 05/22/2012 Normal [facility] HEMATOLOGY Segs 49.3 45.0 - 75.0 05/22/2012 Normal [facility] HEMATOLOGY Basophils # 0.0 0.0 - 0.2 05/22/2012 Normal [facility] HEMATOLOGY Eosinophils # 0.2 0.0 - 0.5 05/22/2012 Normal [facility] HEMATOLOGY Monocytes # 0.8 0.0 - 0.8 05/22/2012 Normal [facility] HEMATOLOGY Lymphocytes # 3.4 1.0 - 5.5 05/22/2012 Normal [facility] HEMATOLOGY Platelet 296 133 - 450 05/22/2012 Normal [facility] HEMATOLOGY MCH 29.4 27.0 - 31.0 05/22/2012 Normal [facility] HEMATOLOGY Hct 41.4 42.0 - 54.0 05/22/2012 LOW [facility] HEMATOLOGY MCV 88.7 80.0 - 94.0 05/22/2012 Normal [facility] HEMATOLOGY MPV 7.9 7.4 - 10.4 05/22/2012 Normal [facility] HEMATOLOGY MCHC 33.2 32.0 - 36.0 05/22/2012 Normal [facility] HEMATOLOGY RDW 15.6 11.5 - 14.5 05/22/2012 [place] [facility] HEMATOLOGY WBC 8.7 3.7 - 10.4 05/22/2012 Normal [facility] HEMATOLOGY Hgb 13.8 14.0 - 18.0 05/22/2012 LOW [facility] HEMATOLOGY RBC 4.67 4.70 - 6.10 05/22/2012 LOW [facility] Microbiology Culture: Urine 05/19/2012 [facility] Microbiology Culture: Blood 05/19/2012 [facility] CHEMISTRY eGFR 117 05/19/2012 NA <sup>2</sup>Result [...] should be multiplied by the estimated BMI. [facility] CHEMISTRY Sodium Lvl 137 135 - 145 05/19/2012 Normal [facility] CHEMISTRY Potassium Lvl 4.2 3.5 - 5.1 05/19/2012 Normal [facility] CHEMISTRY CO2 25 24 - 32 05/19/2012 Normal [facility] CHEMISTRY Chloride Lvl 103 95 - 109 05/19/2012 Normal [facility] CHEMISTRY Calcium Lvl 9.2 8.5 - 10.5 05/19/2012 Normal [facility] CHEMISTRY Glucose Lvl 89 70 - 99 05/19/2012 Normal <sup>5</sup>Interpretive Data: Adult ref erence range values reflect the clinical guidelines
of the [place] [employer]. [facility] CHEMISTRY BUN 16 7 - 22 05/19/2012 Normal [facility] CHEMISTRY Creatinine Lvl 0.9 0.5 - 1.4 05/19/2012 Normal [facility] CHEMISTRY AGAP 13.2 10.0 - 20.0 05/19/2012 Normal [facility] HEMATOLOGY Segs-Bands # 8.8 1.5 - 8.1 05/19/2012 [facility] HEMATOLOGY Basophils # 0.0 0.0 - 0.2 05/19/2012 Normal [facility] HEMATOLOGY Eosinophils # 0.2 0.0 - 0.5 05/19/2012 Normal [facility] HEMATOLOGY Monocytes # 1.0 0.0 - 0.8 05/19/2012 [facility] HEMATOLOGY Lymphocytes # 2.6 1.0 - 5.5 05/19/2012 Normal [facility] HEMATOLOGY Lymphocytes 20.6 20.0 - 40.0 05/19/2012 Normal [facility] HEMATOLOGY Monocytes 8.0 2.0 - 12.0 05/19/2012 Normal [facility] HEMATOLOGY Basophils 0.4 0.0 - 1.0 05/19/2012 Normal [facility] HEMATOLOGY Segs 69.2 45.0 - 75.0 05/19/2012 Normal [facility] HEMATOLOGY Eosinophils 1.8 0.0 - 4.0 05/19/2012 Normal [facility] HEMATOLOGY Hct 43.4 42.0 - 54.0 05/19/2012 Normal [facility] HEMATOLOGY MCH 29.8 27.0 - 31.0 05/19/2012 Normal [facility] HEMATOLOGY RDW 16.1 11.5 - 14.5 05/19/2012 [place] [facility] HEMATOLOGY MCHC 33.5 32.0 - 36.0 05/19/2012 Normal [facility] HEMATOLOGY Platelet 276 133 - 450 05/19/2012 Normal [facility] HEMATOLOGY MCV 88.9 80.0 - 94.0 05/19/2012 Normal [facility] HEMATOLOGY MPV 8.3 7.4 - 10.4 05/19/2012 Normal [facility] HEMATOLOGY Hgb 14.5 14.0 - 18.0 05/19/2012 Normal [facility] HEMATOLOGY RBC 4.88 4.70 - 6.10 05/19/2012 Normal [facility] HEMATOLOGY WBC 12.8 3.7 - 10.4 05/19/2012 HI [facility] Microbiology Culture: Blood 05/19/2012 [facility] Microbiology Culture: Wound/Abscess w/Gram Stain 05/16/2012 [facility] URINALYSIS UA Bacteria Moder ate /HPF (05/15/2012 14:43:00) None S een 05/15/2012 Normal [facility] URINALYSIS UA Amorph Michelle Few / HPF *ABN* (05/15/2012 14:43:00) None S een 05/15/2012 ABN [facility] URINALYSIS UA Mucus Moder ate /LPF *ABN* (05/15/2012 14:43:00) None S een 05/15/2012 ABN [facility] URINALYSIS UA Sq Epi Rare /LPF (05/15/2012 14:43:00) Few 05/15/2012 Normal [facility] URINALYSIS UA WBC Packe d *ABN* (05/15/2012 14:43:00) None S een 05/15/2012 ABN [facility] URINALYSIS UA RBC 3-5 / HPF *ABN* (05/15/2012 14:43:00) 0 - 2 05/15/2012 ABN [facility] URINALYSIS UA Protein 100 m g/dL *ABN* (05/15/2012 14:43:00) Negati ve 05/15/2012 ABN [facility] URINALYSIS UA Glucose Negat pavel (05/15/2012 14:43:00) Negati ve 05/15/2012 Normal [facility] URINALYSIS UA Nitrite Posit pavel *ABN* (05/15/2012 14:43:00) Negati ve 05/15/2012 ABN [facility] URINALYSIS UA Urobilinogen 0.2 0.1 - 1.0 05/15/2012 Normal [facility] URINALYSIS UA Leuk Est Large *ABN* (05/15/2012 14:43:00) Negati ve 05/15/2012 ABN [facility] URINALYSIS UA pH 7.5 5.0 - 8.0 05/15/2012 Normal [facility] URINALYSIS UA Color Yello w *NA* (05/15/2012 14:43:00) Yellow 05/15/2012 NA [facility] URINALYSIS UA Turbidity Clear (05/15/2012 14:43:00) Clear 05/15/2012 Normal [facility] URINALYSIS UA Spec Grav 1.020 <=1.030 05/15/2012 Normal [facility] URINALYSIS UA Ketones Negat pavel *NA* (05/15/2012 14:43:00) Negati ve 05/15/2012 NA [facility] URINALYSIS UA Bili Negat pavel *NA* (05/15/2012 14:43:00) Negati ve 05/15/2012 NA [facility] URINALYSIS UA Blood Small *ABN* (05/15/2012 14:43:00) Negati ve 05/15/2012 ABN [facility] Microbiology Culture: Urine 05/15/2012 [facility] CHEMISTRY eGFR 117 05/15/2012 NA <sup>3</sup>Result [...] should be multiplied by the estimated BMI. [facility] CHEMISTRY Calcium Lvl 9.5 8.5 - 10.5 05/15/2012 Normal [facility] CHEMISTRY Creatinine Lvl 0.9 0.5 - 1.4 05/15/2012 Normal [facility] CHEMISTRY Sodium Lvl 143 135 - 145 05/15/2012 Normal [facility] CHEMISTRY Potassium Lvl 3.6 3.5 - 5.1 05/15/2012 Normal [facility] CHEMISTRY Chloride Lvl 106 95 - 109 05/15/2012 Normal [facility] CHEMISTRY CO2 27 24 - 32 05/15/2012 Normal [facility] CHEMISTRY BUN 17 7 - 22 05/15/2012 Normal [facility] CHEMISTRY Glucose Lvl 96 70 - 99 05/15/2012 Normal <sup>6</sup>Interpretive Data: Adult ref erence range values reflect the clinical guidelines
of the [place] [employer]. [facility] CHEMISTRY AGAP 13.6 10.0 - 20.0 05/15/2012 Normal [facility] HEMATOLOGY MCH 29.8 27.0 - 31.0 05/15/2012 Normal [facility] HEMATOLOGY MCV 89.7 80.0 - 94.0 05/15/2012 Normal [facility] HEMATOLOGY MCHC 33.2 32.0 - 36.0 05/15/2012 Normal [facility] HEMATOLOGY Hct 44.0 42.0 - 54.0 05/15/2012 Normal [facility] HEMATOLOGY Hgb 14.6 14.0 - 18.0 05/15/2012 Normal [facility] HEMATOLOGY RBC 4.90 4.70 - 6.10 05/15/2012 Normal [facility] HEMATOLOGY WBC 9.6 3.7 - 10.4 05/15/2012 Normal [facility] HEMATOLOGY MPV 8.0 7.4 - 10.4 05/15/2012 Normal [facility] HEMATOLOGY RDW 16.1 11.5 - 14.5 05/15/2012 HI [facility] HEMATOLOGY Platelet 314 133 - 450 05/15/2012 Normal [facility] HEMATOLOGY Segs 70.1 45.0 - 75.0 05/15/2012 Normal [facility] HEMATOLOGY Lymphocytes 21.9 20.0 - 40.0 05/15/2012 Normal [facility] HEMATOLOGY Basophils 0.5 0.0 - 1.0 05/15/2012 Normal [facility] HEMATOLOGY Eosinophils 0.4 0.0 - 4.0 05/15/2012 Normal [facility] HEMATOLOGY Monocytes 7.1 2.0 - 12.0 05/15/2012 Normal [facility] HEMATOLOGY Monocytes # 0.7 0.0 - 0.8 05/15/2012 Normal [facility] HEMATOLOGY Segs-Bands # 6.7 1.5 - 8.1 05/15/2012 Normal [facility] HEMATOLOGY Lymphocytes # 2.1 1.0 - 5.5 05/15/2012 Normal [facility] HEMATOLOGY Eosinophils # 0.0 0.0 - 0.5 05/15/2012 Normal [facility] HEMATOLOGY Basophils # 0.1 0.0 - 0.2 05/15/2012 Normal [facility] Microbiology Culture: Urine 02/24/2012 [facility] Microbiology Culture: Urine 02/24/2012 [facility] CHEMISTRY AGAP 12.0 10.0 - 20.0 02/22/2012 Normal [facility] CHEMISTRY Glucose Lvl 91 70 - 99 02/22/2012 Normal <sup>1</sup>Interpretive Data: Adult ref erence range values reflect the clinical guidelines
of the [place] [employer]. [facility] CHEMISTRY Chloride Lvl 107 95 - 109 02/22/2012 Normal [facility] CHEMISTRY Potassium Lvl 4.0 3.5 - 5.1 02/22/2012 Normal [facility] CHEMISTRY Sodium Lvl 143 135 - 145 02/22/2012 Normal [facility] CHEMISTRY Creatinine Lvl 0.7 0.5 - 1.4 02/22/2012 Normal [facility] CHEMISTRY BUN 15 7 - 22 02/22/2012 Normal [facility] CHEMISTRY Calcium Lvl 8.8 8.5 - 10.5 02/22/2012 Normal [facility] CHEMISTRY CO2 28 24 - 32 02/22/2012 Normal [facility] HEMATOLOGY RDW 15.3 11.5 - 14.5 02/22/2012 [facility] HEMATOLOGY Platelet 231 133 - 450 02/22/2012 Normal [facility] HEMATOLOGY MPV 7.9 7.4 - 10.4 02/22/2012 Normal [facility] HEMATOLOGY Hct 34.8 42.0 - 54.0 02/22/2012 LOW [facility] HEMATOLOGY Hgb 12.0 14.0 - 18.0 02/22/2012 LOW [facility] HEMATOLOGY MCH 32.2 27.0 - 31.0 02/22/2012 [facility] HEMATOLOGY MCV 93.0 80.0 - 94.0 02/22/2012 Normal [facility] HEMATOLOGY MCHC 34.6 32.0 - 36.0 02/22/2012 Normal [facility] HEMATOLOGY RBC 3.74 4.70 - 6.10 02/22/2012 [facility] HEMATOLOGY WBC 6.7 3.7 - 10.4 02/22/2012 Normal [facility] HEMATOLOGY Eosinophils # 0.1 0.0 - [...] Globulin 3.3 2.0 - 4.0 02/17/2012 Normal [facility] CHEMISTRY A/G Ratio 0.9 0.7 - 1.6 02/17/2012 Normal [facility] CHEMISTRY B/C Ratio 27 6 - 25 02/17/2012 [facility] CHEMISTRY AGAP 11.2 10.0 - 20.0 02/17/2012 Normal [facility] CHEMISTRY Alk Phos 93 39 - 136 02/17/2012 Normal [facility] CHEMISTRY Bili Total 0.1 0.2 - 1.3 [...] values reflect the clinical guidelines
of the [place] [employer]. [facility] CHEMISTRY BUN 16 7 - 22 02/17/2012 Normal [facility] CHEMISTRY Creatinine Lvl 0.6 0.5 - 1.4 02/17/2012 Normal [facility] CHEMISTRY Potassium Lvl 4.2 3.5 - 5.1 02/17/2012 Normal [facility] CHEMISTRY Sodium Lvl 141 135 - 145 02/17/2012 Normal [facility] HEMATOLOGY Basophils 0.7 0.0 - 1.0 02/17/2012 Normal [facility] HEMATOLOGY Eosinophils 4.8 0.0 - 4.0 02/17/2012 [facility] HEMATOLOGY Monocytes 9.0 2.0 - 12.0 02/17/2012 Normal [facility] HEMATOLOGY Segs-Bands # 2.0 1.5 - 8.1 02/17/2012 Normal [facility] HEMATOLOGY Segs 34.8 45.0 - 75.0 02/17/2012 LOW [facility] HEMATOLOGY Lymphocytes 50.7 20.0 - 40.0 02/17/2012 [facility] HEMATOLOGY Eosinophils # 0.3 0.0 - 0.5 02/17/2012 Normal [facility] HEMATOLOGY Lymphocytes # 3.0 1.0 - 5.5 02/17/2012 Normal [facility] HEMATOLOGY Monocytes # 0.5 0.0 - 0.8 02/17/2012 Normal [facility] HEMATOLOGY Basophils # 0.0 0.0 - 0.2 02/17/2012 Normal [facility] HEMATOLOGY RBC 3.74 4.70 - 6.10 02/17/2012 LOW [facility] HEMATOLOGY MCHC 35.1 32.0 - 36.0 02/17/2012 Normal [facility] HEMATOLOGY Hct 34.5 42.0 - 54.0 02/17/2012 [facility] HEMATOLOGY MPV 8.1 7.4 - 10.4 02/17/2012 Normal [facility] HEMATOLOGY Hgb 12.1 14.0 - 18.0 02/17/2012 [facility] HEMATOLOGY MCV 92.2 80.0 - 94.0 02/17/2012 Normal [facility] HEMATOLOGY WBC 5.9 3.7 - 10.4 02/17/2012 Normal [facility] HEMATOLOGY RDW 14.1 11.5 - 14.5 02/17/2012 Normal [facility] HEMATOLOGY Platelet 210 133 - 450 02/17/2012 Normal [facility] HEMATOLOGY MCH 32.4 27.0 - 31.0 02/17/2012 HI [facility] URINALYSIS UA Bacteria Many /HPF (02/11/2012 16:03:00) None S een 02/11/2012 Normal [facility] URINALYSIS UA Amorph Michelle Few / HPF *ABN* (02/11/2012 16:03:00) None S een 02/11/2012 ABN [facility] URINALYSIS UA WBC 21-50 /HPF *ABN* (02/11/2012 16:03:00) None S een 02/11/2012 ABN [facility] URINALYSIS UA RBC 11-20 /HPF *ABN* (02/11/2012 16:03:00) 0 - 2 02/11/2012 ABN [facility] URINALYSIS UA Sq Epi Occas ional /LPF (02/11/2012 16:03:00) Few 02/11/2012 Normal [facility] URINALYSIS Micro? Perfo rmed (02/11/2012 16:03:00) 02/11/2012 Normal [facility] URINALYSIS UA pH 6.5 5.0 - 8.0 02/11/2012 Normal [facility] URINALYSIS UA Spec Grav 1.020 <=1.030 02/11/2012 Normal [facility] URINALYSIS UA Blood Large *ABN* (02/11/2012 16:03:00) Negati ve 02/11/2012 ABN [facility] URINALYSIS UA Bili Negat pavel *NA* (02/11/2012 16:03:00) Negati ve 02/11/2012 NA [facility] URINALYSIS UA Ketones Negat pavel *NA* (02/11/2012 16:03:00) Negati ve 02/11/2012 NA [facility] URINALYSIS UA Glucose Negat pavel (02/11/2012 16:03:00) Negati ve 02/11/2012 Normal [facility] URINALYSIS UA Protein 100 m g/dL *ABN* (02/11/2012 16:03:00) Negati ve 02/11/2012 ABN [facility] URINALYSIS UA Turbidity Sligh t Cloudy (02/11/2012 16:03:00) Clear 02/11/2012 Normal [facility] URINALYSIS UA Leuk Est Large *ABN* (02/11/2012 16:03:00) Negati ve 02/11/2012 ABN [facility] URINALYSIS UA Nitrite Posit pavel *ABN* (02/11/2012 16:03:00) Negati ve 02/11/2012 ABN [facility] URINALYSIS UA Urobilinogen 0.2 0.1 - 1.0 02/11/2012 Normal [facility] URINALYSIS UA Color Yello w *NA* (02/11/2012 16:03:00) Yellow 02/11/2012 NA [facility] Microbiology Culture: Urine 02/11/2012 [facility] CHEMISTRY AGAP 12.7 10.0 - 20.0 02/11/2012 Normal [facility] CHEMISTRY CO2 25 24 - 32 02/11/2012 Normal [facility] CHEMISTRY Chloride Lvl 104 95 - 109 02/11/2012 Normal [facility] CHEMISTRY Potassium Lvl 3.7 3.5 - 5.1 02/11/2012 Normal [facility] CHEMISTRY Creatinine Lvl 0.7 0.5 - 1.4 02/11/2012 Normal [facility] CHEMISTRY Sodium Lvl 138 135 - 145 02/11/2012 Normal [facility] CHEMISTRY BUN 11 7 - 22 02/11/2012 Normal [facility] CHEMISTRY Glucose Lvl 81 70 - 99 02/11/2012 Normal <sup>3</sup>Interpretive Data: Adult ref erence range values reflect the clinical guidelines
of the [place] [employer]. [facility] CHEMISTRY Calcium Lvl 9.3 8.5 - 10.5 02/11/2012 Normal [facility] HEMATOLOGY Basophils # 0.0 0.0 - 0.2 02/11/2012 Normal [facility] HEMATOLOGY Eosinophils # 0.1 0.0 - 0.5 02/11/2012 Normal [facility] HEMATOLOGY Monocytes # 0.6 0.0 - 0.8 02/11/2012 Normal [facility] HEMATOLOGY Lymphocytes # 1.5 1.0 - 5.5 02/11/2012 Normal [facility] HEMATOLOGY Basophils 0.2 0.0 - 1.0 02/11/2012 Normal [facility] HEMATOLOGY Segs-Bands # 11.6 1.5 - 8.1 02/11/2012 HI [facility] HEMATOLOGY Monocytes 4.1 2.0 - 12.0 02/11/2012 Normal [facility] HEMATOLOGY Eosinophils 0.8 0.0 - 4.0 02/11/2012 Normal [facility] HEMATOLOGY Segs 83.9 45.0 - 75.0 02/11/2012 [facility] HEMATOLOGY Lymphocytes 11.0 20.0 - 40.0 02/11/2012 [facility] HEMATOLOGY Platelet 209 133 - 450 02/11/2012 Normal [facility] HEMATOLOGY MPV 8.2 7.4 - 10.4 02/11/2012 [facility] HEMATOLOGY MCHC 33.8 32.0 - 36.0 02/11/2012 [facility] HEMATOLOGY RDW 15.1 11.5 - 14.5 02/11/2012 [facility] HEMATOLOGY MCH 31.5 27.0 - 31.0 02/11/2012 [facility] HEMATOLOGY RBC 4.24 4.70 - 6.10 02/11/2012 [facility] HEMATOLOGY WBC 13.8 3.7 - 10.4 02/11/2012 [facility] HEMATOLOGY Hct 39.5 42.0 - 54.0 02/11/2012 [facility] HEMATOLOGY MCV 93.0 80.0 - 94.0 02/11/2012 [facility] HEMATOLOGY Hgb 13.3 14.0 - 18.0 02/11/2012 [facility] Microbiology Culture: Blood 01/02/2012 [facility] Microbiology Culture: Blood 01/01/2012 [facility] HEMATOLOGY Basophils 0.1 0.0 - 1.0 01/01/2012 Normal [facility] HEMATOLOGY Eosinophils 0.1 0.0 - 4.0 01/01/2012 Normal [facility] HEMATOLOGY Lymphocytes 23.9 20.0 - 40.0 01/01/2012 [facility] HEMATOLOGY Segs 65.9 45.0 - 75.0 01/01/2012 Normal [facility] HEMATOLOGY Monocytes 10.0 2.0 - 12.0 01/01/2012 [facility] HEMATOLOGY Lymphocytes # 2.0 1.0 - 5.5 01/01/2012 [facility] HEMATOLOGY Segs-Bands # 5.4 1.5 - 8.1 01/01/2012 Normal [facility] HEMATOLOGY Monocytes # 0.8 0.0 - 0.8 01/01/2012 Normal [facility] HEMATOLOGY Eosinophils # 0.0 0.0 - 0.5 01/01/2012 Normal [facility] HEMATOLOGY Basophils # 0.0 0.0 - 0.2 01/01/2012 Normal [facility] HEMATOLOGY INR 0.98 0.85 - 1.17 01/01/2012 Normal <sup>2</sup>Interpretive Data: RECOMMEND ED RANGES FOR PROTIME INR: 2.0-3.0 for most medical and surgical thromboembolic states. 2.5-3.5 for artificial heart valves and recurrent embolism. INR SHOULD BE USED ONLY FOR PATIENTS ON STABLE ANTICOAGULANT THERAPY. [facility] HEMATOLOGY PT 13.0 12.0 - 14.7 01/01/2012 Normal [facility] HEMATOLOGY PTT 27.9 22.9 - 35.8 01/01/2012 Normal <sup>3</sup>Interpretive Data: Heparin T herapeutic Range: 57 - 92 Seconds [facility] HEMATOLOGY MCV 91.7 80.0 - 94.0 01/01/2012 Normal [facility] HEMATOLOGY MPV 8.0 7.4 - 10.4 01/01/2012 Normal [facility] HEMATOLOGY RDW 14.5 11.5 - 14.5 01/01/2012 Normal [facility] HEMATOLOGY Platelet 256 133 - 450 01/01/2012 Normal [facility] HEMATOLOGY MCHC 34.1 32.0 - 36.0 01/01/2012 Normal [facility] HEMATOLOGY MCH 31.3 27.0 - 31.0 01/01/2012 HI [facility] HEMATOLOGY Hgb 14.2 14.0 - 18.0 01/01/2012 Normal [facility] HEMATOLOGY Hct 41.6 42.0 - 54.0 01/01/2012 LOW [facility] HEMATOLOGY RBC 4.54 4.70 - 6.10 01/01/2012 LOW [facility] HEMATOLOGY WBC 8.2 3.7 - 10.4 01/01/2012 Normal [facility] CHEMISTRY AGAP 13.1 10.0 - 20.0 01/01/2012 Normal [facility] CHEMISTRY Calcium Lvl 8.6 8.5 - 10.5 01/01/2012 Normal [facility] CHEMISTRY Sodium Lvl 142 135 - 145 01/01/2012 Normal [facility] CHEMISTRY Potassium Lvl 4.1 3.5 - 5.1 01/01/2012 Normal [facility] CHEMISTRY BUN 8 7 - 22 01/01/2012 Normal [facility] CHEMISTRY Creatinine Lvl 0.8 0.5 - 1.4 01/01/2012 Normal [facility] CHEMISTRY Glucose Lvl 87 70 - 99 01/01/2012 Normal <sup>1</sup>Interpretive Data: Adult ref erence range values reflect the clinical guidelines of the [place] [employer]. [facility] CHEMISTRY CO2 24 24 - 32 01/01/2012 Normal [facility] CHEMISTRY Chloride Lvl 109 95 - 109 01/01/2012 Normal [facility] HEMATOLOGY PTT 28.5 22.9 - 35.8 12/26/2011 Normal <sup>4</sup>Interpretive Data: Heparin T herapeutic Range: 57 - 92 Seconds [facility] HEMATOLOGY INR 0.92 0.85 - 1.17 12/26/2011 Normal <sup>3</sup>Interpretive Data: RECOMMEND ED RANGES FOR PROTIME INR: 2.0-3.0 for most medical and surgical thromboembolic states. 2.5-3.5 for artificial heart valves and recurrent embolism. INR SHOULD BE USED ONLY FOR PATIENTS ON STABLE ANTICOAGULANT THERAPY. [facility] HEMATOLOGY PT 12.4 12.0 - 14.7 12/26/2011 Normal [facility] CHEMISTRY Calcium Lvl 8.9 8.5 - 10.5 12/24/2011 Normal [facility] CHEMISTRY CO2 22 24 - 32 12/24/2011 LOW [facility] CHEMISTRY Chloride Lvl 108 95 - 109 12/24/2011 Normal [facility] CHEMISTRY Sodium Lvl 140 135 - 145 12/24/2011 Normal [facility] CHEMISTRY Glucose Lvl 76 70 - 99 12/24/2011 Normal <sup>1</sup>Interpretive Data: Adult ref erence range values reflect the clinical guidelines of the [place] [employer]. [facility] CHEMISTRY Potassium Lvl 3.5 3.5 - 5.1 12/24/2011 Normal [facility] CHEMISTRY Creatinine Lvl 0.6 0.5 - 1.4 12/24/2011 Normal [facility] CHEMISTRY BUN 10 7 - 22 12/24/2011 Normal [facility] CHEMISTRY AGAP 13.5 10.0 - 20.0 12/24/2011 Normal [facility] HEMATOLOGY Eosinophils 2.3 0.0 - 4.0 12/24/2011 Normal [facility] HEMATOLOGY Lymphocytes 34.9 20.0 - 40.0 12/24/2011 Normal [facility] HEMATOLOGY Monocytes 7.6 2.0 - 12.0 12/24/2011 Normal [facility] HEMATOLOGY Segs 54.9 45.0 - 75.0 12/24/2011 Normal [facility] HEMATOLOGY Basophils 0.3 0.0 - 1.0 12/24/2011 Normal [facility] HEMATOLOGY Lymphocytes # 2.1 1.0 - 5.5 12/24/2011 Normal [facility] HEMATOLOGY Segs-Bands # 3.3 1.5 - 8.1 12/24/2011 Normal [facility] HEMATOLOGY Monocytes # 0.5 0.0 - 0.8 12/24/2011 Normal [facility] HEMATOLOGY Eosinophils # 0.1 0.0 - 0.5 12/24/2011 Normal [facility] HEMATOLOGY Basophils # 0.0 0.0 - 0.2 12/24/2011 Normal [facility] HEMATOLOGY Plt Morph Leeann l (12/24/2011 03:00:00) 12/24/2011 Normal [facility] HEMATOLOGY RBC Morph Leeann l (12/24/2011 03:00:00) 12/24/2011 Normal [facility] HEMATOLOGY MPV 8.8 7.4 - 10.4 12/24/2011 Normal [facility] HEMATOLOGY Platelet 199 133 - 450 12/24/2011 [facility] HEMATOLOGY MCH 31.9 27.0 - 31.0 12/24/2011 [facility] HEMATOLOGY RDW 14.7 11.5 - 14.5 12/24/2011 [facility] HEMATOLOGY MCHC 34.4 32.0 - 36.0 12/24/2011 Normal [facility] HEMATOLOGY MCV 92.6 80.0 - 94.0 12/24/2011 Normal [facility] HEMATOLOGY Hct 34.8 42.0 - 54.0 12/24/2011 LOW [facility] HEMATOLOGY Hgb 12.0 14.0 - 18.0 12/24/2011 [facility] HEMATOLOGY WBC 6.0 3.7 - 10.4 12/24/2011 [facility] HEMATOLOGY RBC 3.76 4.70 - 6.10 12/24/2011 [facility] URINALYSIS UA Urobilinogen 0.1 - 1.0 12/23/2011 NA [facility] URINALYSIS UA Ketones 2 12/23/2011 [facility] URINALYSIS UA Sq Epi None Seen 12/23/2011 [facility] URINALYSIS UA Leuk Est Large *ABN* (12/22/2011 23:25:00) Negati ve 12/23/2011 ABN [facility] URINALYSIS UA WBC >182 0 - 5 12/23/2011 [facility] URINALYSIS UA RBC >182 0 - 2 12/23/2011 [facility] URINALYSIS UA Bacteria Occas ional /HPF *NA* (12/22/2011 23:25:00) None S een 12/23/2011 NA [facility] URINALYSIS UA Mucus Few / LPF *NA* (12/22/2011 23:25:00) None S een 12/23/2011 NA [facility] URINALYSIS UA Color Red *ABN* (12/22/2011 23:25:00) Yellow 12/23/2011 ABN [facility] URINALYSIS UA Spec Grav 1.046 <=1.030 12/23/2011 HI [facility] URINALYSIS UA Turbidity Marke d *ABN* (12/22/2011 23:25:00) Clear 12/23/2011 ABN [facility] URINALYSIS UA pH 6.0 5.0 - 8.0 12/23/2011 Normal [facility] URINALYSIS UA Protein 200 m g/dL *ABN* (12/22/2011 23:25:00) Negati ve 12/23/2011 ABN [facility] URINALYSIS UA [place] Yeast Few / HPF *ABN* (12/22/2011 23:25:00) None S een 12/23/2011 ABN [facility] URINALYSIS UA Glucose Negat pavel mg/dL *NA* (12/22/2011 23:25:00) Negati ve 12/23/2011 NA [facility] URINALYSIS UA Bili Negat pavel *NA* (12/22/2011 23:25:00) Negati ve 12/23/2011 NA [facility] URINALYSIS UA Blood Large *ABN* (12/22/2011 23:25:00) Negati ve 12/23/2011 ABN [facility] URINALYSIS UA Nitrite Negat pavel (12/22/2011 23:25:00) Negati ve 12/23/2011 Normal [facility] URINALYSIS Micro? Perfo rmed (12/22/2011 23:25:00) 12/23/2011 Normal [facility] Microbiology Culture: Urine 12/23/2011 [facility] CHEMISTRY A/G Ratio 0.8 0.7 - 1.6 12/23/2011 Normal [facility] CHEMISTRY B/C Ratio 18 6 - 25 12/23/2011 Normal [facility] CHEMISTRY Globulin 4.4 2.0 - 4.0 12/23/2011 HI [facility] CHEMISTRY AGAP 13.6 10.0 - 20.0 12/23/2011 Normal [facility] CHEMISTRY Chloride Lvl 105 95 - 109 12/23/2011 Normal [facility] CHEMISTRY CO2 24 24 - 32 12/23/2011 Normal [facility] CHEMISTRY Calcium Lvl 9.3 8.5 - 10.5 12/23/2011 Normal [facility] CHEMISTRY Total Protein 8.1 6.4 - 8.4 12/23/2011 Normal [facility] CHEMISTRY Bili Total 0.2 0.2 - 1.3 12/23/2011 Normal [facility] CHEMISTRY AST 14 0 - 37 12/23/2011 Normal [facility] CHEMISTRY Sodium Lvl 139 135 - 145 12/23/2011 Normal [facility] CHEMISTRY Potassium Lvl 3.6 3.5 - 5.1 12/23/2011 Normal [facility] CHEMISTRY Albumin Lvl 3.7 3.5 - 5.0 12/23/2011 Normal [facility] CHEMISTRY ALT 18 0 - 65 12/23/2011 Normal [facility] CHEMISTRY Alk Phos 78 39 - 136 12/23/2011 Normal [facility] CHEMISTRY Glucose Lvl 95 70 - 99 12/23/2011 Normal <sup>2</sup>Interpretive Data: Adult ref erence range values reflect the clinical guidelines of the [place] [employer]. [facility] CHEMISTRY BUN 14 7 - 22 12/23/2011 Normal [facility] CHEMISTRY Creatinine Lvl 0.8 0.5 - 1.4 12/23/2011 Normal [facility] CHEMISTRY Lipase Lvl 40 73 - 393 12/23/2011 LOW [facility] CHEMISTRY Amylase Lvl 31 25 - 115 12/23/2011 Normal [facility] HEMATOLOGY RDW 14.7 11.5 - 14.5 12/23/2011 [facility] HEMATOLOGY MCHC 34.3 32.0 - 36.0 12/23/2011 Normal [facility] HEMATOLOGY RBC 4.40 4.70 - 6.10 12/23/2011 [facility] HEMATOLOGY MCH 31.5 27.0 - 31.0 12/23/2011 [facility] HEMATOLOGY Hgb 13.9 14.0 - 18.0 12/23/2011 [facility] HEMATOLOGY WBC 9.2 3.7 - 10.4 12/23/2011 Normal [facility] HEMATOLOGY MPV 8.3 7.4 - 10.4 12/23/2011 Normal [facility] HEMATOLOGY Platelet 299 133 - 450 12/23/2011 Normal [facility] HEMATOLOGY Hct 40.5 42.0 - 54.0 12/23/2011 LOW [facility] HEMATOLOGY MCV 92.1 80.0 - 94.0 12/23/2011 Normal [facility] HEMATOLOGY Monocytes # 0.6 0.0 - 0.8 12/23/2011 Normal [facility] HEMATOLOGY Lymphocytes 39.3 20.0 - 40.0 12/23/2011 Normal [facility] HEMATOLOGY Segs 51.4 45.0 - 75.0 12/23/2011 Normal [facility] HEMATOLOGY Monocytes 6.9 2.0 - 12.0 12/23/2011 Normal [facility] HEMATOLOGY Eosinophils 1.9 0.0 - 4.0 12/23/2011 Normal [facility] HEMATOLOGY Eosinophils # 0.2 0.0 - 0.5 12/23/2011 [facility] HEMATOLOGY Basophils # 0.0 0.0 - 0.2 12/23/2011 [facility] HEMATOLOGY Basophils 0.5 0.0 - 1.0 12/23/2011 [facility] HEMATOLOGY Segs-Bands # 4.7 1.5 - 8.1 12/23/2011 [facility] HEMATOLOGY Lymphocytes # 3.6 1.0 - 5.5 12/23/2011 [facility] BACTERIAL - SEROLOGY C diff Toxin Negative (12/07/2011 06:10:00) 12/07/2011 [facility] Microbiology Culture: Stool 12/07/2011 [facility] CHEMISTRY eGFR >60 12/07/2011 NA <sup>1</sup>Result Comment: Expected eGFR for >20 yr. age group: >=60 ml/min/1.73 sq m The eGFR calculation is not valid in or for persons < 18 years of age. From [employer] (NKDEP) [facility] CHEMISTRY Glucose Lvl 106 70 - 99 12/07/2011 HI <sup>3</sup>Interpretive Data: Adult ref erence range values reflect the clinical guidelines of the [place] [employer]. [facility] CHEMISTRY Creatinine Lvl 0.7 0.5 - 1.4 12/07/2011 Normal [facility] CHEMISTRY Sodium Lvl 142 135 - 145 12/07/2011 Normal [facility] CHEMISTRY BUN 8 7 - 22 12/07/2011 [facility] CHEMISTRY Potassium Lvl 3.7 3.5 - 5.1 12/07/2011 [facility] CHEMISTRY Chloride Lvl 108 95 - 109 12/07/2011 [facility] CHEMISTRY AGAP 12.7 10.0 - 20.0 12/07/2011 [facility] CHEMISTRY CO2 25 24 - 32 12/07/2011 [facility] CHEMISTRY Calcium Lvl 8.6 8.5 - 10.5 12/07/2011 [facility] HEMATOLOGY Segs 43.1 45.0 - 75.0 12/07/2011 [facility] HEMATOLOGY Lymphocytes 41.8 20.0 - 40.0 12/07/2011 [facility] HEMATOLOGY Lymphocytes # 2.3 1.0 - 5.5 12/07/2011 [facility] HEMATOLOGY Eosinophils 5.5 0.0 - 4.0 12/07/2011 [facility] HEMATOLOGY Monocytes # 0.5 0.0 - 0.8 12/07/2011 [facility] HEMATOLOGY Eosinophils # 0.3 0.0 - 0.5 12/07/2011 [facility] HEMATOLOGY Segs-Bands # 2.4 1.5 - 8.1 12/07/2011 [facility] HEMATOLOGY Basophils 0.8 0.0 - 1.0 12/07/2011 [facility] HEMATOLOGY Monocytes 8.8 2.0 - 12.0 12/07/2011 [facility] HEMATOLOGY MCH 31.0 27.0 - 31.0 12/07/2011 [facility] HEMATOLOGY RDW 15.0 11.5 - 14.5 12/07/2011 [facility] HEMATOLOGY MCHC 33.5 32.0 - 36.0 12/07/2011 [facility] HEMATOLOGY MPV 8.3 7.4 - 10.4 12/07/2011 [facility] HEMATOLOGY Platelet 195 133 - 450 12/07/2011 [facility] HEMATOLOGY MCV 92.6 80.0 - 94.0 12/07/2011 [facility] HEMATOLOGY Hct 35.4 42.0 - 54.0 12/07/2011 [facility] HEMATOLOGY Hgb 11.8 14.0 - 18.0 12/07/2011 [facility] HEMATOLOGY RBC 3.82 4.70 - 6.10 12/07/2011 [facility] HEMATOLOGY WBC 5.5 3.7 - 10.4 12/07/2011 [facility] CHEMISTRY CO2 22 24 - 32 12/05/2011 [facility] CHEMISTRY Chloride Lvl 105 95 - 109 12/05/2011 Normal [facility] CHEMISTRY Potassium Lvl 3.7 3.5 - 5.1 12/05/2011 Normal [facility] CHEMISTRY Sodium Lvl 140 135 - 145 12/05/2011 Normal [facility] CHEMISTRY Creatinine Lvl 0.6 0.5 - 1.4 12/05/2011 Normal [facility] CHEMISTRY Glucose Lvl 82 70 - 99 12/05/2011 Normal <sup>4</sup>Interpretive Data: Adult ref erence range values reflect the clinical guidelines of the [place] [employer]. [facility] CHEMISTRY BUN 10 7 - 22 12/05/2011 Normal [facility] CHEMISTRY Calcium Lvl 9.3 8.5 - 10.5 12/05/2011 [facility] CHEMISTRY eGFR >60 12/05/2011 NA <sup>2</sup>Result Comment: Expected eGFR for >20 yr. age group: >=60 ml/min/1.73 sq m The eGFR calculation is not valid in or for persons < 18 years of age. From [employer] (NKDEP) [facility] CHEMISTRY AGAP 16.7 10.0 - 20.0 12/05/2011 [facility] HEMATOLOGY RBC 4.12 4.70 - 6.10 12/05/2011 [facility] HEMATOLOGY Hgb 13.0 14.0 - 18.0 12/05/2011 [facility] HEMATOLOGY WBC 6.6 3.7 - 10.4 12/05/2011 [facility] HEMATOLOGY MCH 31.6 27.0 - 31.0 12/05/2011 [facility] HEMATOLOGY MCV 92.8 80.0 - 94.0 12/05/2011 [facility] HEMATOLOGY Hct 38.2 42.0 - 54.0 12/05/2011 [facility] HEMATOLOGY MPV 9.0 7.4 - 10.4 12/05/2011 [facility] HEMATOLOGY MCHC 34.1 32.0 - 36.0 12/05/2011 [facility] HEMATOLOGY Platelet 233 133 - 450 12/05/2011 [facility] HEMATOLOGY RDW 14.9 11.5 - 14.5 12/05/2011 [facility] HEMATOLOGY Polychrom Sligh t (12/05/2011 03:53:00) None S een 12/05/2011 [facility] HEMATOLOGY Basophils # 0.0 0.0 - 0.2 12/05/2011 Normal [facility] HEMATOLOGY Neut Vac Sligh t *ABN* (12/05/2011 03:53:00) None S een 12/05/2011 ABN [facility] HEMATOLOGY Monocytes # 0.6 0.0 - 0.8 12/05/2011 Normal [facility] HEMATOLOGY Lymphocytes # 2.1 1.0 - 5.5 12/05/2011 Normal [facility] HEMATOLOGY Eosinophils # 0.1 0.0 - 0.5 12/05/2011 Normal [facility] HEMATOLOGY Monocytes 9.3 2.0 - 12.0 12/05/2011 Normal [facility] HEMATOLOGY Eosinophils 2.0 0.0 - 4.0 12/05/2011 Normal [facility] HEMATOLOGY Basophils 0.7 0.0 - 1.0 12/05/2011 Normal [facility] HEMATOLOGY Segs-Bands # 3.8 1.5 - 8.1 12/05/2011 Normal [facility] HEMATOLOGY Plt Morph Leeann l (12/05/2011 03:53:00) 12/05/2011 Normal [facility] HEMATOLOGY Segs 56.6 45.0 - 75.0 12/05/2011 Normal [facility] HEMATOLOGY Lymphocytes 31.4 20.0 - 40.0 12/05/2011 Normal [facility] BACTERIAL - SEROLOGY C diff Toxin Negative (12/04/2011 21:45:00) 12/05/2011 Normal [facility] CHEMISTRY U Cocaine Scr Negati ve *NA* (12/04/2011 21:45:00) Negati ve 12/05/2011 NA [facility] CHEMISTRY U Benzodia Scr Positi ve *ABN* (12/04/2011 21:45:00) Negati ve 12/05/2011 ABN [facility] CHEMISTRY U Opiate Scr Positi ve *ABN* (12/04/2011 21:45:00) Negati ve 12/05/2011 ABN [facility] CHEMISTRY U Cannab Scr Positi ve *ABN* (12/04/2011 21:45:00) Negati ve 12/05/2011 ABN [facility] CHEMISTRY U Chelsie Scr Negati ve *NA* (12/04/2011 21:45:00) Negati ve 12/05/2011 NA [facility] CHEMISTRY UDS Note See No te 6 [...] Methadone 300 ng/mL Urine alcohol 20 mg/dL [facility] CHEMISTRY U Phencyc Scr Negati ve *NA* (12/04/2011 21:45:00) Negati ve 12/05/2011 NA [facility] CHEMISTRY U Amph Scr Negati ve *NA* (12/04/2011 21:45:00) Negati ve 12/05/2011 NA [facility] CHEMISTRY Lactic Acid Lvl 1.3 0.5 - 2.2 12/05/2011 Normal [facility] Microbiology Culture: Blood 12/05/2011 [facility] CHEMISTRY A/G Ratio 0.8 0.7 - 1.6 12/04/2011 Normal [facility] CHEMISTRY B/C Ratio 11 6 - 25 12/04/2011 Normal [facility] CHEMISTRY Globulin 5.2 2.0 - 4.0 12/04/2011 [facility] CHEMISTRY AGAP 14.8 10.0 - 20.0 12/04/2011 Normal [facility] CHEMISTRY Albumin Lvl 3.9 3.5 - 5.0 12/04/2011 Normal [facility] CHEMISTRY ALT 29 0 - 65 12/04/2011 Normal [facility] CHEMISTRY CO2 26 24 - 32 12/04/2011 Normal [facility] CHEMISTRY Calcium Lvl 9.9 8.5 - 10.5 12/04/2011 Normal [facility] CHEMISTRY Total Protein 9.1 6.4 - 8.4 12/04/2011 [facility] CHEMISTRY Bili Total 0.3 0.2 - 1.3 12/04/2011 Normal [facility] CHEMISTRY AST 10 0 - 37 12/04/2011 Normal [facility] CHEMISTRY Alk Phos 108 39 - 136 12/04/2011 Normal [facility] CHEMISTRY Potassium Lvl 3.8 3.5 - 5.1 12/04/2011 Normal [facility] CHEMISTRY Chloride Lvl 102 95 - 109 12/04/2011 Normal [facility] CHEMISTRY Sodium Lvl 139 135 - 145 12/04/2011 Normal [facility] CHEMISTRY BUN 8 7 - 22 12/04/2011 Normal [facility] CHEMISTRY Glucose Lvl 102 70 - 99 12/04/2011 [place] <sup>5</sup>Interpretive Data: Adult ref erence range values reflect the clinical guidelines of the [place] [employer]. [facility] CHEMISTRY Creatinine Lvl 0.7 0.5 - 1.4 12/04/2011 Normal [facility] HEMATOLOGY Platelet 273 133 - 450 12/04/2011 Normal [facility] HEMATOLOGY MPV 8.4 7.4 - 10.4 12/04/2011 [facility] HEMATOLOGY RDW 15.0 11.5 - 14.5 12/04/2011 [facility] HEMATOLOGY Hct 45.1 42.0 - 54.0 12/04/2011 Normal [facility] HEMATOLOGY MCHC 33.1 32.0 - 36.0 12/04/2011 Normal [facility] HEMATOLOGY Hgb 14.9 14.0 - 18.0 12/04/2011 [facility] HEMATOLOGY RBC 4.82 4.70 - 6.10 12/04/2011 Normal [facility] HEMATOLOGY MCH 30.9 27.0 - 31.0 12/04/2011 Normal [facility] HEMATOLOGY MCV 93.5 80.0 - 94.0 12/04/2011 Normal [facility] HEMATOLOGY WBC 9.0 3.7 - 10.4 12/04/2011 Normal [facility] HEMATOLOGY Eosinophils # 0.0 0.0 - 0.5 12/04/2011 Normal [facility] HEMATOLOGY Lymphocytes 14.6 20.0 - 40.0 12/04/2011 LOW [facility] HEMATOLOGY Segs-Bands # 7.0 1.5 - 8.1 12/04/2011 Normal [facility] HEMATOLOGY Basophils 0.1 0.0 - 1.0 12/04/2011 Normal [facility] HEMATOLOGY Monocytes # 0.6 0.0 - 0.8 12/04/2011 [facility] HEMATOLOGY Lymphocytes # 1.3 1.0 - 5.5 12/04/2011 Normal [facility] HEMATOLOGY Eosinophils 0.2 0.0 - 4.0 12/04/2011 Normal [facility] HEMATOLOGY Monocytes 6.5 2.0 - 12.0 12/04/2011 Normal [facility] HEMATOLOGY Segs 78.6 45.0 - 75.0 12/04/2011 HI [facility] URINALYSIS UA Urobilinogen 0.1 - 1.0 12/04/2011 NA [facility] URINALYSIS Micro? Perfo rmed *NA* (12/04/2011 17:45:00) 12/04/2011 NA [facility] URINALYSIS UA Blood Moder ate *ABN* (12/04/2011 17:45:00) Negati ve 12/04/2011 ABN [facility] URINALYSIS UA Nitrite Negat pavel (12/04/2011 17:45:00) Negati ve 12/04/2011 Normal [facility] URINALYSIS UA Leuk Est Large *ABN* (12/04/2011 17:45:00) Negati ve 12/04/2011 ABN [facility] URINALYSIS UA Mucus Few / LPF *NA* (12/04/2011 17:45:00) None S een 12/04/2011 [facility] URINALYSIS UA RBC 160 0 - 2 12/04/2011 [facility] URINALYSIS UA WBC >182 0 - 5 12/04/2011 [facility] URINALYSIS UA Color Yello w *NA* (12/04/2011 17:45:00) Yellow 12/04/2011 NA [facility] URINALYSIS UA Turbidity Marke d *ABN* (12/04/2011 17:45:00) Clear 12/04/2011 ABN [facility] URINALYSIS UA Spec Grav 1.022 <=1.030 12/04/2011 Normal [facility] URINALYSIS UA pH 6.0 5.0 - 8.0 12/04/2011 Normal [facility] URINALYSIS UA Glucose Negat pavel mg/dL *NA* (12/04/2011 17:45:00) Negati ve 12/04/2011 NA [facility] URINALYSIS UA Ketones 60 mg /dL *ABN* (12/04/2011 17:45:00) Negati ve 12/04/2011 ABN [facility] URINALYSIS UA Protein 200 m g/dL *ABN* (12/04/2011 17:45:00) Negati ve 12/04/2011 ABN [facility] URINALYSIS UA Bili Negat pavel *NA* (12/04/2011 17:45:00) Negati ve 12/04/2011 NA [facility] Microbiology Culture: Urine 12/04/2011 [facility] CHEMISTRY Calcium Lvl 9.4 8.5 - 10.5 11/10/2011 Normal [facility] CHEMISTRY CO2 28 24 - 32 11/10/2011 Normal [facility] CHEMISTRY Chloride Lvl 105 95 - 109 11/10/2011 Normal [facility] CHEMISTRY Sodium Lvl 142 135 - 145 11/10/2011 Normal [facility] CHEMISTRY Potassium Lvl 4.6 3.5 - 5.1 11/10/2011 Normal [facility] CHEMISTRY Creatinine Lvl 0.9 0.5 - 1.4 11/10/2011 Normal [facility] CHEMISTRY BUN 6 7 - 22 11/10/2011 LOW [facility] CHEMISTRY Glucose Lvl 76 70 - 99 11/10/2011 Normal <sup>1</sup>Interpretive Data: Adult ref erence range values reflect the clinical guidelines of the [place] [employer]. [facility] CHEMISTRY AGAP 13.6 10.0 - 20.0 11/10/2011 Normal [facility] HEMATOLOGY MCV 93.3 80.0 - 94.0 11/10/2011 Normal [facility] HEMATOLOGY Hct 35.2 42.0 - 54.0 11/10/2011 LOW [facility] HEMATOLOGY MCH 31.9 27.0 - 31.0 11/10/2011 [facility] HEMATOLOGY RDW 14.6 11.5 - 14.5 11/10/2011 [facility] HEMATOLOGY MCHC 34.2 32.0 - 36.0 11/10/2011 Normal [facility] HEMATOLOGY MPV 7.5 7.4 - 10.4 11/10/2011 Normal [facility] HEMATOLOGY Platelet 268 133 - 450 11/10/2011 Normal [facility] HEMATOLOGY Hgb 12.1 14.0 - 18.0 11/10/2011 LOW [facility] HEMATOLOGY WBC 5.5 3.7 - 10.4 11/10/2011 Normal [facility] HEMATOLOGY RBC 3.78 4.70 - 6.10 11/10/2011 LOW [facility] CHEMISTRY U Amph Scr Negati ve *NA* (11/08/2011 08:20:00) Negati ve 11/08/2011 NA [facility] U Cannab Scr Positi ve *ABN* (11/08/2011 08:20:00) Negati ve 11/08/2011 ABN [facility] U Phencyc Scr Negati ve *NA* (11/08/2011 08:20:00) Negati ve 11/08/2011 NA [facility] UDS Note See No te 3 [...] Methadone 300 ng/mL Urine alcohol 20 mg/dL [facility] U Opiate Scr Positi ve *ABN* (11/08/2011 08:20:00) Negati ve 11/08/2011 ABN [facility] U Cocaine Scr Negati ve *NA* (11/08/2011 08:20:00) Negati ve 11/08/2011 NA [facility] CHEMISTRY U Chelsie Scr Negati ve *NA* (11/08/2011 08:20:00) Negati ve 11/08/2011 NA [facility] U Benzodia Scr Positi ve *ABN* (11/08/2011 08:20:00) Negati ve 11/08/2011 ABN [facility] HEMATOLOGY MPV 7.9 7.4 - 10.4 11/08/2011 Normal [facility] HEMATOLOGY Platelet 198 133 - 450 11/08/2011 Normal [facility] HEMATOLOGY MCHC 34.0 32.0 - 36.0 11/08/2011 Normal [facility] HEMATOLOGY MCH 31.4 27.0 - 31.0 11/08/2011 HI [facility] HEMATOLOGY MCV 92.3 80.0 - 94.0 11/08/2011 Normal [facility] HEMATOLOGY Hct 31.3 42.0 - 54.0 11/08/2011 LOW [facility] HEMATOLOGY RDW 14.7 11.5 - 14.5 11/08/2011 HI [facility] HEMATOLOGY WBC 6.3 3.7 - 10.4 11/08/2011 Normal [facility] HEMATOLOGY RBC 3.39 4.70 - 6.10 11/08/2011 LOW [facility] HEMATOLOGY Hgb 10.6 14.0 - 18.0 11/08/2011 LOW [facility] HEMATOLOGY Eosinophils # 0.1 0.0 - 0.5 11/08/2011 Normal [facility] HEMATOLOGY Monocytes # 0.8 0.0 - 0.8 11/08/2011 Normal [facility] HEMATOLOGY Basophils # 0.0 0.0 - 0.2 11/08/2011 Normal [facility] HEMATOLOGY Lymphocytes # 1.8 1.0 - 5.5 11/08/2011 Normal [facility] HEMATOLOGY Segs-Bands # 3.5 1.5 - 8.1 11/08/2011 Normal [facility] HEMATOLOGY Eosinophils 1.1 0.0 - 4.0 11/08/2011 Normal [facility] HEMATOLOGY Basophils 0.8 0.0 - 1.0 11/08/2011 Normal [facility] HEMATOLOGY Segs 56.7 45.0 - 75.0 11/08/2011 Normal [facility] HEMATOLOGY Monocytes 12.7 2.0 - 12.0 11/08/2011 HI [facility] HEMATOLOGY Lymphocytes 28.7 20.0 - 40.0 11/08/2011 Normal [facility] CHEMISTRY U Opiate Scr Positi ve *ABN* (11/07/2011 18:04:00) Negati ve 11/07/2011 ABN [facility] CHEMISTRY U Phencyc Scr Negati ve *NA* (11/07/2011 18:04:00) Negati ve 11/07/2011 NA [facility] CHEMISTRY UDS Note See No te 4 [...] Methadone 300 ng/mL Urine alcohol 20 mg/dL [facility] CHEMISTRY U Cocaine Scr Negati ve *NA* (11/07/2011 18:04:00) Negati ve 11/07/2011 NA [facility] CHEMISTRY U Cannab Scr Positi ve *ABN* (11/07/2011 18:04:00) Negati ve 11/07/2011 ABN [facility] CHEMISTRY U Amph Scr Negati ve *NA* (11/07/2011 18:04:00) Negati ve 11/07/2011 NA [facility] CHEMISTRY U Chelsie Scr Negati ve *NA* (11/07/2011 18:04:00) Negati ve 11/07/2011 NA [facility] CHEMISTRY U Benzodia Scr Positi ve *ABN* (11/07/2011 18:04:00) Negati ve 11/07/2011 ABN [facility] URINALYSIS UA Nitrite Posit pavel *ABN* (11/06/2011 23:45:00) Negati ve 11/07/2011 ABN [facility] URINALYSIS UA Leuk Est Large *ABN* (11/06/2011 23:45:00) Negati ve 11/07/2011 ABN [facility] URINALYSIS UA Sq Epi Few / LPF (11/06/2011 23:45:00) Few 11/07/2011 Normal [facility] URINALYSIS UA Urobilinogen 0.2 0.1 - 1.0 11/07/2011 Normal [facility] URINALYSIS Micro? Perfo rmed (11/06/2011 23:45:00) 11/07/2011 Normal [facility] URINALYSIS UA Blood Moder ate *ABN* (11/06/2011 23:45:00) Negati ve 11/07/2011 ABN [facility] URINALYSIS UA Ketones Trace *ABN* (11/06/2011 23:45:00) Negati ve 11/07/2011 ABN [facility] URINALYSIS UA Bili Negat pavel *NA* (11/06/2011 23:45:00) Negati ve 11/07/2011 NA [facility] URINALYSIS UA Amorph Michelle Few / HPF *ABN* (11/06/2011 23:45:00) None S een 11/07/2011 ABN [facility] URINALYSIS UA Hyph Yeast Few / HPF *ABN* (11/06/2011 23:45:00) 11/07/2011 ABN [facility] URINALYSIS UA [place] Yeast Few / HPF *ABN* (11/06/2011 23:45:00) None S een 11/07/2011 ABN [facility] URINALYSIS UA Bacteria Moder ate /HPF (11/06/2011 23:45:00) None S een 11/07/2011 Normal [facility] URINALYSIS UA Mucus Few / LPF (11/06/2011 23:45:00) None S een 11/07/2011 Normal [facility] URINALYSIS UA pH 6.0 5.0 - 8.0 11/07/2011 Normal [facility] URINALYSIS UA Protein 30 mg /dL *ABN* (11/06/2011 23:45:00) Negati ve 11/07/2011 ABN [facility] URINALYSIS UA Glucose Negat pavel (11/06/2011 23:45:00) Negati ve 11/07/2011 Normal [facility] URINALYSIS UA Spec Grav 1.025 <=1.030 11/07/2011 Normal [facility] URINALYSIS UA Turbidity Aren[place] y *ABN* (11/06/2011 23:45:00) Clear 11/07/2011 ABN [facility] URINALYSIS UA Color Yello w *NA* (11/06/2011 23:45:00) Yellow 11/07/2011 NA [facility] URINALYSIS UA RBC 6-10 /HPF *ABN* (11/06/2011 23:45:00) 0 - 2 11/07/2011 ABN [facility] URINALYSIS UA WBC >100 /HPF *ABN* (11/06/2011 23:45:00) None S een 11/07/2011 ABN [facility] Microbiology Culture: Urine 11/07/2011 [facility] CHEMISTRY Lipase Lvl 38 73 - 393 11/07/2011 LOW [facility] CHEMISTRY ALT 33 0 - 65 11/07/2011 Normal [facility] CHEMISTRY Alk Phos 106 39 - 136 11/07/2011 Normal [facility] CHEMISTRY Bili Total 0.3 0.2 - 1.3 11/07/2011 Normal [facility] CHEMISTRY AST 17 0 - 37 11/07/2011 Normal [facility] CHEMISTRY Albumin Lvl 3.2 3.5 - 5.0 11/07/2011 LOW [facility] CHEMISTRY Creatinine Lvl 0.8 0.5 - 1.4 11/07/2011 Normal [facility] CHEMISTRY Sodium Lvl 137 135 - 145 11/07/2011 Normal [facility] CHEMISTRY BUN 14 7 - 22 11/07/2011 Normal [facility] CHEMISTRY Glucose Lvl 101 70 - 99 11/07/2011 [place] <sup>2</sup>Interpretive Data: Adult ref erence range values reflect the clinical guidelines of the [place] [employer]. [facility] CHEMISTRY Potassium Lvl 3.7 3.5 - 5.1 11/07/2011 Normal [facility] CHEMISTRY Chloride Lvl 102 95 - 109 11/07/2011 Normal [facility] CHEMISTRY CO2 26 24 - 32 11/07/2011 Normal [facility] CHEMISTRY Calcium Lvl 9.2 8.5 - 10.5 11/07/2011 Normal [facility] CHEMISTRY Total Protein 8.8 6.4 - 8.4 11/07/2011 [facility] CHEMISTRY AGAP 12.7 10.0 - 20.0 11/07/2011 Normal [facility] CHEMISTRY B/C Ratio 18 6 - 25 11/07/2011 Normal [facility] CHEMISTRY Globulin 5.6 2.0 - 4.0 11/07/2011 HI [facility] CHEMISTRY A/G Ratio 0.6 0.7 - 1.6 11/07/2011 LOW [facility] CHEMISTRY Troponin-I <0.02 0.00 - 0.40 11/07/2011 Normal [facility] CHEMISTRY CK MB <0.5 0.5 - 3.6 11/07/2011 Normal [facility] HEMATOLOGY Eosinophils # 0.0 0.0 - 0.5 11/07/2011 Normal [facility] HEMATOLOGY Basophils # 0.0 0.0 - 0.2 11/07/2011 Normal [facility] HEMATOLOGY Lymphocytes # 1.5 1.0 - 5.5 11/07/2011 Normal [facility] HEMATOLOGY Monocytes # 0.9 0.0 - 0.8 11/07/2011 [facility] HEMATOLOGY Segs 73.1 45.0 - 75.0 11/07/2011 Normal [facility] HEMATOLOGY Lymphocytes 16.3 20.0 - 40.0 11/07/2011 [facility] HEMATOLOGY Monocytes 10.3 2.0 - 12.0 11/07/2011 Normal [facility] HEMATOLOGY Eosinophils 0.0 0.0 - 4.0 11/07/2011 [facility] HEMATOLOGY Basophils 0.3 0.0 - 1.0 11/07/2011 Normal [facility] HEMATOLOGY Segs-Bands # 6.6 1.5 - 8.1 11/07/2011 [facility] HEMATOLOGY RBC 3.85 4.70 - 6.10 11/07/2011 [facility] HEMATOLOGY WBC 9.1 3.7 - 10.4 11/07/2011 [facility] HEMATOLOGY MCV 89.9 80.0 - 94.0 11/07/2011 [facility] HEMATOLOGY Hct 34.6 42.0 - 54.0 11/07/2011 [facility] HEMATOLOGY Hgb 12.1 14.0 - 18.0 11/07/2011 [facility] HEMATOLOGY MPV 8.6 7.4 - 10.4 11/07/2011 [facility] HEMATOLOGY Platelet 191 133 - 450 11/07/2011 [facility] HEMATOLOGY RDW 14.9 11.5 - 14.5 11/07/2011 [facility] HEMATOLOGY MCHC 34.9 32.0 - 36.0 11/07/2011 [facility] HEMATOLOGY MCH 31.4 27.0 - 31.0 11/07/2011 [facility] CHEMISTRY Glucose Lvl 101 10/21/2011 NA <sup>1</sup>Interpretive Data: Reference Ranges : 0 - 7 days : 41 - 90 mg/dL 7 days - 150 yrs : 70 - 99 mg/dL (fasting), based on the clinical recommendations of the [place] [employer]. [facility] CHEMISTRY Creatinine Lvl 1.0 0.5 - 1.4 10/21/2011 Normal [facility] CHEMISTRY BUN 26 7 - 22 10/21/2011 [facility] CHEMISTRY Sodium Lvl 140 135 - 145 10/21/2011 [facility] CHEMISTRY Potassium Lvl 4.7 3.5 - 5.1 10/21/2011 [facility] CHEMISTRY CO2 26 24 - 32 10/21/2011 [facility] CHEMISTRY Chloride Lvl 107 95 - 109 10/21/2011 [facility] CHEMISTRY Calcium Lvl 9.3 8.5 - 10.5 10/21/2011 Normal [facility] CHEMISTRY AGAP 11.7 10.0 - 20.0 10/21/2011 Normal [facility] CHEMISTRY Chloride Lvl 104 95 - 109 10/19/2011 Normal [facility] CHEMISTRY AGAP 14.0 10.0 - 20.0 10/19/2011 Normal [facility] CHEMISTRY CO2 26 24 - 32 10/19/2011 Normal [facility] CHEMISTRY Calcium Lvl 9.3 8.5 - 10.5 10/19/2011 Normal [facility] CHEMISTRY BUN 29 7 - 22 10/19/2011 HI [facility] CHEMISTRY Potassium Lvl 5.0 3.5 - 5.1 10/19/2011 Normal [facility] CHEMISTRY Creatinine Lvl 1.1 0.5 - 1.4 10/19/2011 Normal [facility] CHEMISTRY Sodium Lvl 139 135 - 145 10/19/2011 Normal [facility] CHEMISTRY Glucose Lvl 88 10/19/2011 NA <sup>2</sup>Interpretive Data: Reference Ranges : 0 - 7 days : 41 - 90 mg/dL 7 days - 150 yrs : 70 - 99 mg/dL (fasting), based on the clinical recommendations of the [place] [employer]. [facility] CHEMISTRY Calcium Lvl 8.9 8.5 - 10.5 10/18/2011 Normal [facility] CHEMISTRY AGAP 11.7 10.0 - 20.0 10/18/2011 Normal [facility] CHEMISTRY CO2 27 24 - 32 10/18/2011 Normal [facility] CHEMISTRY Chloride Lvl 108 95 - 109 10/18/2011 Normal [facility] CHEMISTRY Glucose Lvl 95 10/18/2011 NA <sup>3</sup>Interpretive Data: Reference Ranges : 0 - 7 days : 41 - 90 mg/dL 7 days - 150 yrs : 70 - 99 mg/dL (fasting), based on the clinical recommendations of the [place] [employer]. [facility] CHEMISTRY Sodium Lvl 142 135 - 145 10/18/2011 Normal [facility] CHEMISTRY Potassium Lvl 4.7 3.5 - 5.1 10/18/2011 Normal [facility] CHEMISTRY BUN 34 7 - 22 10/18/2011 HI [facility] CHEMISTRY Creatinine Lvl 1.6 0.5 - 1.4 10/18/2011 HI [facility] CHEMISTRY Magnesium Lvl 1.4 1.8 - 2.4 10/18/2011 LOW [facility] URINALYSIS UA Urobilinogen 0.1 - 1.0 10/17/2011 NA [facility] URINALYSIS Micro? Perfo rmed *NA* (10/17/2011 03:00:00) 10/17/2011 NA [facility] URINALYSIS UA Leuk Est Moder ate *ABN* (10/17/2011 03:00:00) Negati ve 10/17/2011 ABN [facility] URINALYSIS UA WBC 3 0 - 5 10/17/2011 Normal [facility] URINALYSIS UA RBC 1 0 - 2 10/17/2011 Normal [facility] URINALYSIS UA Ketones Negat pavel mg/dL *NA* (10/17/2011 03:00:00) Negati ve 10/17/2011 NA [facility] URINALYSIS UA Blood Negat pavel (10/17/2011 03:00:00) Negati ve 10/17/2011 Normal [facility] URINALYSIS UA Bili Negat pavel *NA* (10/17/2011 03:00:00) Negati ve 10/17/2011 NA [facility] URINALYSIS UA Nitrite Negat pavel (10/17/2011 03:00:00) Negati ve 10/17/2011 Normal [facility] URINALYSIS UA Color Color less *NA* (10/17/2011 03:00:00) Yellow 10/17/2011 NA [facility] URINALYSIS UA Glucose Negat pavel mg/dL *NA* (10/17/2011 03:00:00) Negati ve 10/17/2011 NA [facility] URINALYSIS UA Spec Grav 1.007 <=1.030 10/17/2011 Normal [facility] URINALYSIS UA Turbidity Clear (10/17/2011 03:00:00) Clear 10/17/2011 Normal [facility] URINALYSIS UA Protein Negat pavel mg/dL (10/17/2011 03:00:00) Negati ve 10/17/2011 Normal [facility] URINALYSIS UA pH 5.0 5.0 - 8.0 10/17/2011 Normal [facility] CHEMISTRY Magnesium Lvl 1.7 1.8 - 2.4 10/17/2011 LOW [facility] HEMATOLOGY Basophils # 0.0 0.0 - 0.2 10/17/2011 Normal [facility] HEMATOLOGY Large Plt Sligh t *ABN* (10/17/2011 02:23:00) None S een 10/17/2011 ABN [facility] HEMATOLOGY Basophils 0.7 0.0 - 1.0 10/17/2011 [facility] HEMATOLOGY Eosinophils 5.2 0.0 - 4.0 10/17/2011 [facility] HEMATOLOGY Monocytes 10.2 2.0 - 12.0 10/17/2011 Normal [facility] HEMATOLOGY Eosinophils # 0.2 0.0 - 0.5 10/17/2011 [facility] HEMATOLOGY Monocytes # 0.5 0.0 - 0.8 10/17/2011 [facility] HEMATOLOGY Lymphocytes # 1.9 1.0 - 5.5 10/17/2011 [facility] HEMATOLOGY Segs-Bands # 2.0 1.5 - 8.1 10/17/2011 [facility] HEMATOLOGY Lymphocytes 41.1 20.0 - 40.0 10/17/2011 [facility] HEMATOLOGY Segs 42.8 45.0 - 75.0 10/17/2011 LOW [facility] HEMATOLOGY RBC Morph Leeann l (10/17/2011 02:23:00) 10/17/2011 Normal [facility] HEMATOLOGY MPV 8.5 7.4 - 10.4 10/17/2011 [facility] HEMATOLOGY Platelet 201 133 - 450 10/17/2011 [facility] HEMATOLOGY RDW 16.1 11.5 - 14.5 10/17/2011 [facility] HEMATOLOGY MCHC 34.5 32.0 - 36.0 10/17/2011 [facility] HEMATOLOGY MCV 93.0 80.0 - 94.0 10/17/2011 [facility] HEMATOLOGY MCH 32.1 27.0 - 31.0 10/17/2011 [facility] [facility] HEMATOLOGY Hct 32.4 42.0 - 54.0 10/17/2011 [facility] HEMATOLOGY Hgb 11.2 14.0 - 18.0 10/17/2011 [facility] HEMATOLOGY RBC 3.48 4.70 - 6.10 10/17/2011 [facility] HEMATOLOGY WBC 4.7 3.7 - 10.4 10/17/2011 [facility] Microbiology Culture: Urine 10/17/2011 [facility] CHEMISTRY Magnesium Lvl 1.6 1.8 - 2.4 10/16/2011 [facility] CHEMISTRY Phosphorus 6.5 2.5 - 4.5 10/16/2011 [facility] CHEMISTRY Total CK 107 12 - 191 10/16/2011 Normal [facility] HEMATOLOGY Platelet 192 133 - 450 10/16/2011 Normal <sup>12</sup>Result Comment: revciewed 3:30 gr [facility] HEMATOLOGY RDW 15.5 11.5 - 14.5 10/16/2011 [facility] HEMATOLOGY MCH 30.9 27.0 - 31.0 10/16/2011 Normal [facility] HEMATOLOGY MCV 91.6 80.0 - 94.0 10/16/2011 Normal [facility] HEMATOLOGY MCHC 33.7 32.0 - 36.0 10/16/2011 [facility] HEMATOLOGY MPV 8.5 7.4 - 10.4 10/16/2011 [facility] HEMATOLOGY RBC 3.79 4.70 - 6.10 10/16/2011 [facility] HEMATOLOGY Hct 34.7 42.0 - 54.0 10/16/2011 [facility] HEMATOLOGY Hgb 11.7 14.0 - 18.0 10/16/2011 [facility] HEMATOLOGY WBC 6.3 3.7 - 10.4 10/16/2011 Normal [facility] HEMATOLOGY PT 14.4 12.0 - 14.7 10/16/2011 Normal [facility] HEMATOLOGY INR 1.12 0.85 - 1.17 10/16/2011 Normal <sup>13</sup>Interpretive Data: RECOMMEN DED RANGES FOR PROTIME INR: 2.0-3.0 for most medical and surgical thromboembolic states. 2.5-3.5 for artificial heart valves and recurrent embolism. INR SHOULD BE USED ONLY FOR PATIENTS ON STABLE ANTICOAGULANT THERAPY. [facility] HEMATOLOGY Monocytes # 0.7 0.0 - 0.8 10/16/2011 Normal [facility] HEMATOLOGY Eosinophils # 0.2 0.0 - 0.5 10/16/2011 Normal [facility] HEMATOLOGY Basophils # 0.0 0.0 - 0.2 10/16/2011 [facility] HEMATOLOGY Lymphocytes 23.6 20.0 - 40.0 10/16/2011 [facility] HEMATOLOGY Monocytes 11.2 2.0 - 12.0 10/16/2011 [facility] HEMATOLOGY Eosinophils 2.4 0.0 - 4.0 10/16/2011 [facility] HEMATOLOGY Segs 62.4 45.0 - 75.0 10/16/2011 Normal [facility] HEMATOLOGY Basophils 0.4 0.0 - 1.0 10/16/2011 Normal [facility] HEMATOLOGY Segs-Bands # 3.9 1.5 - 8.1 10/16/2011 Normal [facility] HEMATOLOGY Lymphocytes # 1.5 1.0 - 5.5 10/16/2011 Normal [facility] URINALYSIS UA Protein 50 mg /dL *ABN* (10/16/2011 02:10:00) Negati ve 10/16/2011 ABN [facility] URINALYSIS UA Glucose Negat pavel mg/dL *NA* (10/16/2011 02:10:00) Negati ve 10/16/2011 NA [facility] URINALYSIS UA Spec Grav 1.007 <=1.030 10/16/2011 Normal [facility] URINALYSIS UA Urobilinogen 0.1 - 1.0 10/16/2011 NA [facility] URINALYSIS UA Bacteria Occas ional /HPF *NA* (10/16/2011 02:10:00) None S een 10/16/2011 NA [facility] URINALYSIS UA Leuk Est Large *ABN* (10/16/2011 02:10:00) Negati ve 10/16/2011 ABN [facility] URINALYSIS UA Color Yello w *NA* (10/16/2011 02:10:00) Yellow 10/16/2011 NA [facility] URINALYSIS UA Turbidity Sligh t *ABN* (10/16/2011 02:10:00) Clear 10/16/2011 ABN [facility] URINALYSIS UA pH 6.0 5.0 - 8.0 10/16/2011 Normal [facility] URINALYSIS Micro? Perfo rmed *NA* (10/16/2011 02:10:00) 10/16/2011 [facility] URINALYSIS UA Mucus Few / LPF *NA* (10/16/2011 02:10:00) None S een 10/16/2011 [facility] URINALYSIS UA Hyal Cast 3 0 - 2 10/16/2011 HI [facility] URINALYSIS UA Blood Large *ABN* (10/16/2011 02:10:00) Negati ve 10/16/2011 ABN [facility] URINALYSIS UA Bili Negat pavel *NA* (10/16/2011 02:10:00) Negati ve 10/16/2011 NA [facility] URINALYSIS UA Nitrite Negat pavel (10/16/2011 02:10:00) Negati ve 10/16/2011 Normal [facility] URINALYSIS UA Ketones Negat pavel mg/dL *NA* (10/16/2011 02:10:00) Negati ve 10/16/2011 NA [facility] URINALYSIS UA WBC 51 0 - 5 10/16/2011 HI [facility] URINALYSIS UA Sq Epi Moder ate /LPF *ABN* (10/16/2011 02:10:00) Few 10/16/2011 ABN [facility] URINALYSIS UA RBC >182 0 - 2 10/16/2011 HI [facility] Microbiology Culture: Urine 10/16/2011 [facility] CHEMISTRY U Creatinine 42.8 10/15/2011 NA <sup>9</sup>Interpretive Data: No establ ished reference ranges. [facility] CHEMISTRY U Sodium 70 10/15/2011 NA <sup>11</sup>Interpretive Data: No established reference ranges. [facility] CHEMISTRY U Prot/Creat 27.1 10/15/2011 NA [facility] CHEMISTRY U Eos None S een (10/15/2011 17:30:00) None S een 10/15/2011 Normal [facility] CHEMISTRY U Protein 1160.3 10/15/2011 NA <sup>10</sup>Interpretive Data: No estab lished reference ranges. [facility] URINALYSIS Micro? Perfo rmed *NA* (10/15/2011 17:30:00) 10/15/2011 NA [facility] URINALYSIS UA Urobilinogen 0.1 - 1.0 10/15/2011 NA [facility] URINALYSIS UA Nitrite Negat pavel (10/15/2011 17:30:00) Negati ve 10/15/2011 Normal [facility] URINALYSIS UA [place] Yeast Moder ate /HPF *ABN* (10/15/2011 17:30:00) None S een 10/15/2011 ABN [facility] URINALYSIS UA Hyph Yeast Occas ional *ABN* (10/15/2011 17:30:00) None S een 10/15/2011 ABN [facility] URINALYSIS UA Mucus Few / LPF *NA* (10/15/2011 17:30:00) None S een 10/15/2011 NA [facility] URINALYSIS UA Hyal Cast 2 0 - 2 10/15/2011 Normal [facility] URINALYSIS UA Leuk Est Large *ABN* (10/15/2011 17:30:00) Negati ve 10/15/2011 ABN [facility] URINALYSIS UA WBC 44 0 - 5 10/15/2011 HI [facility] URINALYSIS UA RBC 170 0 - 2 10/15/2011 HI [facility] URINALYSIS UA Bacteria Occas ional /HPF *NA* (10/15/2011 17:30:00) None S een 10/15/2011 NA [facility] URINALYSIS UA Spec Grav 1.014 <=1.030 10/15/2011 Normal [facility] URINALYSIS UA pH 6.5 5.0 - 8.0 10/15/2011 Normal [facility] URINALYSIS UA Color Yello w *NA* (10/15/2011 17:30:00) Yellow 10/15/2011 NA [facility] URINALYSIS UA Turbidity Sligh t *ABN* (10/15/2011 17:30:00) Clear 10/15/2011 ABN [facility] URINALYSIS UA Ketones Negat pavel mg/dL *NA* (10/15/2011 17:30:00) Negati ve 10/15/2011 NA [facility] URINALYSIS UA Bili Negat pavel *NA* (10/15/2011 17:30:00) Negati ve 10/15/2011 NA [facility] URINALYSIS UA Protein >=300 mg/dL *ABN* (10/15/2011 17:30:00) Negati ve 10/15/2011 ABN [facility] URINALYSIS UA Glucose Negat pavel mg/dL *NA* (10/15/2011 17:30:00) Negati ve 10/15/2011 NA [facility] URINALYSIS UA Blood Moder ate *ABN* (10/15/2011 17:30:00) Negati ve 10/15/2011 ABN [facility] CHEMISTRY Mode Art Rm Air (10/15/2011 09:36:00) 10/15/2011 Normal [facility] CHEMISTRY Allens Art Positi ve (10/15/2011 09:36:00) 10/15/2011 Normal [facility] CHEMISTRY Site Art Right Ra (10/15/2011 09:36:00) 10/15/2011 Normal [facility] CHEMISTRY Temp Art 37.0 10/15/2011 NA [facility] CHEMISTRY BE Art -9 -2-2 - 2 10/15/2011 LOW [facility] CHEMISTRY O2 Sat Art 99.5 95.0 - 100.0 10/15/2011 Normal [facility] CHEMISTRY pCO2 Art 33 35 - 45 10/15/2011 LOW [facility] CHEMISTRY pH Art 7.30 7.35 - 7.45 10/15/2011 LOW [facility] CHEMISTRY pO2 Art 168 80 - 100 10/15/2011 [facility] CHEMISTRY HCO3 Art 16 22 - 26 10/15/2011 [facility] CHEMISTRY A/G Ratio 0.7 0.7 - 1.6 10/15/2011 Normal [facility] CHEMISTRY B/C Ratio 14 6 - 25 10/15/2011 Normal [facility] CHEMISTRY Globulin 5.0 2.0 - 4.0 10/15/2011 [facility] CHEMISTRY Bili Total 0.4 0.2 - 1.3 10/15/2011 Normal [facility] CHEMISTRY ALT 62 0 - 65 10/15/2011 Normal [facility] CHEMISTRY AST 40 0 - 37 10/15/2011 [facility] CHEMISTRY Alk Phos 86 39 - 136 10/15/2011 Normal [facility] CHEMISTRY Total Protein 8.3 6.4 - 8.4 10/15/2011 Normal [facility] CHEMISTRY Albumin Lvl 3.3 3.5 - 5.0 10/15/2011 LOW [facility] CHEMISTRY Vanco Lvl TLD unknown 10/15/2011 NA [facility] CHEMISTRY Vanco Lvl 25.9 10/15/2011 NA <sup>6</sup>Interpretive Data: Therapeutic Range: Trough: 10 - 20 ug/mL Peak: 20 - 40 ug/mL Potential Toxicity: >80 ug/mL [facility] HEMATOLOGY MPV 9.0 7.4 - 10.4 10/15/2011 Normal [facility] HEMATOLOGY WBC 6.6 3.7 - 10.4 10/15/2011 [facility] HEMATOLOGY RBC 4.45 4.70 - 6.10 10/15/2011 LOW [facility] HEMATOLOGY Hgb 14.2 14.0 - 18.0 10/15/2011 Normal [facility] HEMATOLOGY Hct 42.0 42.0 - 54.0 10/15/2011 Normal [facility] HEMATOLOGY MCHC 33.9 32.0 - 36.0 10/15/2011 Normal [facility] HEMATOLOGY MCH 32.0 27.0 - 31.0 10/15/2011 [facility] HEMATOLOGY Platelet 134 133 - 450 10/15/2011 Normal [facility] HEMATOLOGY MCV 94.3 80.0 - 94.0 10/15/2011 [facility] HEMATOLOGY RDW 15.9 11.5 - 14.5 10/15/2011 [facility] HEMATOLOGY Lymphocytes # 1.9 1.0 - 5.5 10/15/2011 Normal [facility] HEMATOLOGY Segs-Bands # 3.8 1.5 - 8.1 10/15/2011 Normal [facility] HEMATOLOGY Eosinophils 2.7 0.0 - 4.0 10/15/2011 Normal [facility] HEMATOLOGY Monocytes 10.8 2.0 - 12.0 10/15/2011 Normal [facility] HEMATOLOGY Monocytes # 0.7 0.0 - 0.8 10/15/2011 Normal [facility] HEMATOLOGY Macrocyte 1+ *ABN* (10/15/2011 05:13:00) None S een 10/15/2011 ABN [facility] HEMATOLOGY Eosinophils # 0.2 0.0 - 0.5 10/15/2011 Normal [facility] HEMATOLOGY Basophils 0.3 0.0 - 1.0 10/15/2011 Normal [facility] HEMATOLOGY Lymphocytes 29.2 20.0 - 40.0 10/15/2011 [facility] HEMATOLOGY Segs 57.0 45.0 - 75.0 10/15/2011 Normal [facility] HEMATOLOGY Plt Morph Leeann l (10/15/2011 05:13:00) 10/15/2011 Normal [facility] HEMATOLOGY RBC Morph Leeann l (10/15/2011 05:13:00) 10/15/2011 Normal [facility] CHEMISTRY Ethanol Lvl <3 10/15/2011 NA <sup>8</sup>Interpretive Data: Negative Range: <3 mg/dL Toxic Range: >250 mg/dL [facility] CHEMISTRY Etoh (%) <0.003 10/15/2011 NA <sup>7</sup>Interpretive Data: Negative Range: <0.003% Toxic Range: >0.25% [facility] CHEMISTRY CK MB Index 2.1 0.0 - 2.5 10/15/2011 Normal [facility] CHEMISTRY Troponin-I <0.02 0.00 - 0.40 10/15/2011 Normal [facility] CHEMISTRY Total CK 151 12 - 191 10/15/2011 Normal [facility] CHEMISTRY B/C Ratio 16 6 - 25 10/15/2011 Normal [facility] CHEMISTRY A/G Ratio 0.7 0.7 - 1.6 10/15/2011 Normal [facility] CHEMISTRY Globulin 4.6 2.0 - 4.0 10/15/2011 HI [facility] CHEMISTRY Alk Phos 80 39 - 136 10/15/2011 Normal [facility] CHEMISTRY AST 32 0 - 37 10/15/2011 Normal [facility] CHEMISTRY Bili Total 0.3 0.2 - 1.3 10/15/2011 Normal [facility] CHEMISTRY Albumin Lvl 3.4 3.5 - 5.0 10/15/2011 LOW [facility] CHEMISTRY ALT 62 0 - 65 10/15/2011 Normal [facility] CHEMISTRY Total Protein 8.0 6.4 - 8.4 10/15/2011 Normal [facility] CHEMISTRY CK MB 3.1 0.5 - 3.6 10/15/2011 Normal [facility] HEMATOLOGY Basophils # 0.0 0.0 - 0.2 10/15/2011 Normal [facility] CHEMISTRY U Cocaine Scr Positi ve *ABN* (10/14/2011 22:00:00) Negati ve 10/15/2011 ABN [facility] CHEMISTRY U Chelsie Scr Negati ve *NA* (10/14/2011 22:00:00) Negati ve 10/15/2011 NA [facility] CHEMISTRY U Amph Scr Negati ve *NA* (10/14/2011 22:00:00) Negati ve 10/15/2011 NA [facility] CHEMISTRY U Opiate Scr Positi ve *ABN* (10/14/2011 22:00:00) Negati ve 10/15/2011 ABN [facility] CHEMISTRY U Cannab Scr Positi ve *ABN* (10/14/2011 22:00:00) Negati ve 10/15/2011 ABN [facility] CHEMISTRY U Phencyc Scr Negati ve *NA* (10/14/2011 22:00:00) Negati ve 10/15/2011 NA [facility] CHEMISTRY UDS Note See No te 5 [...] Methadone 300 ng/mL Urine alcohol 20 mg/dL [facility] CHEMISTRY U Benzodia Scr Positi ve 4 *ABN* (10/14/2011 22:00:00) Negati ve 10/15/2011 ABN <sup>4</sup>Result Comment: rechecked 10/14/2011 23:24 gr [facility] CHEMISTRY AGAP 11.6 10.0 - 20.0 09/13/2011 Normal [facility] CHEMISTRY Glucose Lvl 90 09/13/2011 NA <sup>2</sup>Interpretive Data: Reference Ranges : 0 - 7 days : 41 - 90 mg/dL 7 days - 150 yrs : 70 - 99 mg/dL (fasting), based on the clinical recommendations of the [place] [employer]. [facility] CHEMISTRY BUN 22 7 - 22 09/13/2011 Normal [facility] CHEMISTRY Sodium Lvl 139 135 - 145 09/13/2011 Normal [facility] CHEMISTRY Potassium Lvl 4.6 3.5 - 5.1 09/13/2011 Normal [facility] CHEMISTRY Creatinine Lvl 0.8 0.5 - 1.4 09/13/2011 Normal [facility] CHEMISTRY CO2 28 24 - 32 09/13/2011 Normal [facility] CHEMISTRY Chloride Lvl 104 95 - 109 09/13/2011 Normal [facility] CHEMISTRY Calcium Lvl 8.7 8.5 - 10.5 09/13/2011 Normal [facility] HEMATOLOGY Monocytes # 1.0 0.0 - 0.8 09/13/2011 [facility] HEMATOLOGY Lymphocytes # 2.7 1.0 - 5.5 09/13/2011 Normal [facility] HEMATOLOGY Eosinophils # 0.4 0.0 - 0.5 09/13/2011 Normal [facility] HEMATOLOGY Basophils # 0.1 0.0 - 0.2 09/13/2011 Normal [facility] HEMATOLOGY Lymphocytes 25.3 20.0 - 40.0 09/13/2011 [facility] HEMATOLOGY Monocytes 9.4 2.0 - 12.0 09/13/2011 Normal [facility] HEMATOLOGY Eosinophils 3.5 0.0 - 4.0 09/13/2011 [facility] HEMATOLOGY Segs 61.3 45.0 - 75.0 09/13/2011 [facility] HEMATOLOGY Segs-Bands # 6.6 1.5 - 8.1 09/13/2011 [facility] HEMATOLOGY Basophils 0.5 0.0 - 1.0 09/13/2011 [facility] HEMATOLOGY RDW 15.4 11.5 - 14.5 09/13/2011 [facility] HEMATOLOGY MCH 31.0 27.0 - 31.0 09/13/2011 Normal [facility] HEMATOLOGY MCHC 33.5 32.0 - 36.0 09/13/2011 Normal [facility] HEMATOLOGY Platelet 289 133 - 450 09/13/2011 [facility] HEMATOLOGY MPV 7.4 7.4 - 10.4 09/13/2011 [facility] HEMATOLOGY WBC 10.8 3.7 - 10.4 09/13/2011 [facility] HEMATOLOGY Hgb 10.7 14.0 - 18.0 09/13/2011 LOW [facility] HEMATOLOGY Hct 32.1 42.0 - 54.0 09/13/2011 [facility] HEMATOLOGY RBC 3.47 4.70 - 6.10 09/13/2011 [facility] HEMATOLOGY MCV 92.6 80.0 - 94.0 09/13/2011 [facility] CHEMISTRY Calcium Lvl 8.8 8.5 - 10.5 09/12/2011 [facility] CHEMISTRY Glucose Lvl 84 09/12/2011 NA <sup>3</sup>Interpretive Data: Reference Ranges : 0 - 7 days : 41 - 90 mg/dL 7 days - 150 yrs : 70 - 99 mg/dL (fasting), based on the clinical recommendations of the [place] [employer]. [facility] CHEMISTRY BUN 21 7 - 22 09/12/2011 Normal [facility] CHEMISTRY Sodium Lvl 138 135 - 145 09/12/2011 [facility] CHEMISTRY Potassium Lvl 4.2 3.5 - 5.1 09/12/2011 [facility] CHEMISTRY Chloride Lvl 102 95 - 109 09/12/2011 [facility] CHEMISTRY CO2 30 24 - 32 09/12/2011 [facility] CHEMISTRY Creatinine Lvl 0.7 0.5 - 1.4 09/12/2011 [facility] CHEMISTRY AGAP 10.2 10.0 - 20.0 09/12/2011 [facility] HEMATOLOGY Hgb 10.5 14.0 - 18.0 09/12/2011 [facility] HEMATOLOGY MCV 92.5 80.0 - 94.0 09/12/2011 [facility] HEMATOLOGY Hct 32.1 42.0 - 54.0 09/12/2011 [facility] HEMATOLOGY MCHC 32.5 32.0 - 36.0 09/12/2011 [facility] HEMATOLOGY MCH 30.1 27.0 - 31.0 09/12/2011 [facility] HEMATOLOGY RDW 15.3 11.5 - 14.5 09/12/2011 [facility] HEMATOLOGY MPV 7.1 7.4 - 10.4 09/12/2011 [facility] HEMATOLOGY Platelet 303 133 - 450 09/12/2011 [facility] HEMATOLOGY WBC 8.7 3.7 - 10.4 09/12/2011 [facility] HEMATOLOGY RBC 3.47 4.70 - 6.10 09/12/2011 [facility] HEMATOLOGY Lymphocytes # 2.4 1.0 - 5.5 09/12/2011 [facility] HEMATOLOGY Segs-Bands # 5.1 1.5 - 8.1 09/12/2011 [facility] HEMATOLOGY Basophils 0.5 0.0 - 1.0 09/12/2011 [facility] HEMATOLOGY Eosinophils # 0.3 0.0 - 0.5 09/12/2011 [facility] HEMATOLOGY Monocytes # 0.9 0.0 - 0.8 09/12/2011 [facility] HEMATOLOGY Eosinophils 3.5 0.0 - 4.0 09/12/2011 [facility] HEMATOLOGY Lymphocytes 27.5 20.0 - 40.0 09/12/2011 Normal [facility] HEMATOLOGY Segs 58.0 45.0 - 75.0 09/12/2011 Normal [facility] HEMATOLOGY Monocytes 10.5 2.0 - 12.0 09/12/2011 Normal [facility] CHEMISTRY Glucose Lvl 87 09/11/2011 NA <sup>4</sup>Interpretive Data: Reference Ranges : 0 - 7 days : 41 - 90 mg/dL 7 days - 150 yrs : 70 - 99 mg/dL (fasting), based on the clinical recommendations of the [place] [employer]. [facility] CHEMISTRY BUN 22 7 - 22 09/11/2011 Normal [facility] CHEMISTRY Creatinine Lvl 0.7 0.5 - 1.4 09/11/2011 Normal [facility] CHEMISTRY Chloride Lvl 101 95 - 109 09/11/2011 Normal [facility] CHEMISTRY Sodium Lvl 139 135 - 145 09/11/2011 [facility] CHEMISTRY Potassium Lvl 4.3 3.5 - 5.1 09/11/2011 Normal [facility] CHEMISTRY Bili Total 0.2 0.2 - 1.3 09/11/2011 Normal [facility] CHEMISTRY Alk Phos 79 39 - 136 09/11/2011 Normal [facility] CHEMISTRY AST 34 0 - 37 09/11/2011 Normal [facility] CHEMISTRY ALT 37 0 - 65 09/11/2011 Normal [facility] CHEMISTRY Albumin Lvl 2.4 3.5 - 5.0 09/11/2011 LOW [facility] CHEMISTRY Total Protein 7.2 6.4 - 8.4 09/11/2011 Normal [facility] CHEMISTRY CO2 29 24 - 32 09/11/2011 [facility] CHEMISTRY Calcium Lvl 8.5 8.5 - 10.5 09/11/2011 [facility] CHEMISTRY A/G Ratio 0.5 0.7 - 1.6 09/11/2011 LOW [facility] CHEMISTRY Globulin 4.8 2.0 - 4.0 09/11/2011 [facility] CHEMISTRY AGAP 13.3 10.0 - 20.0 09/11/2011 [facility] CHEMISTRY B/C Ratio 31 6 - 25 09/11/2011 [facility] HEMATOLOGY Monocytes 10.1 2.0 - 12.0 09/11/2011 [facility] HEMATOLOGY Eosinophils # 0.3 0.0 - 0.5 09/11/2011 Normal [facility] HEMATOLOGY Basophils # 0.1 0.0 - 0.2 09/11/2011 Normal [facility] HEMATOLOGY Lymphocytes 36.9 20.0 - 40.0 09/11/2011 Normal [facility] HEMATOLOGY Segs 47.7 45.0 - 75.0 09/11/2011 Normal [facility] HEMATOLOGY Monocytes # 0.7 0.0 - 0.8 09/11/2011 Normal [facility] HEMATOLOGY Lymphocytes # 2.6 1.0 - 5.5 09/11/2011 Normal [facility] HEMATOLOGY Segs-Bands # 3.4 1.5 - 8.1 09/11/2011 Normal [facility] HEMATOLOGY Basophils 0.7 0.0 - 1.0 09/11/2011 [facility] HEMATOLOGY Eosinophils 4.6 0.0 - 4.0 09/11/2011 [facility] HEMATOLOGY INR 1.01 0.85 - 1.17 09/11/2011 Normal <sup>5</sup>Interpretive Data: RECOMMEND ED RANGES FOR PROTIME INR: 2.0-3.0 for most medical and surgical thromboembolic states. 2.5-3.5 for artificial heart valves and recurrent embolism. INR SHOULD BE USED ONLY FOR PATIENTS ON STABLE ANTICOAGULANT THERAPY. [facility] HEMATOLOGY PT 13.3 12.0 - 14.7 09/11/2011 [facility] HEMATOLOGY MPV 7.4 7.4 - 10.4 09/11/2011 [facility] HEMATOLOGY RDW 14.8 11.5 - 14.5 09/11/2011 [facility] HEMATOLOGY Platelet 328 133 - 450 09/11/2011 [facility] HEMATOLOGY MCHC 34.1 32.0 - 36.0 09/11/2011 [facility] HEMATOLOGY WBC 7.1 3.7 - 10.4 09/11/2011 [facility] HEMATOLOGY MCH 31.2 27.0 - 31.0 09/11/2011 [facility] HEMATOLOGY MCV 91.6 80.0 - 94.0 09/11/2011 [facility] HEMATOLOGY Hgb 10.6 14.0 - 18.0 09/11/2011 [facility] HEMATOLOGY Hct 31.0 42.0 - 54.0 09/11/2011 [facility] HEMATOLOGY RBC 3.39 4.70 - 6.10 09/11/2011 [facility] HEMATOLOGY PT 13.3 12.0 - 14.7 09/11/2011 Normal [facility] HEMATOLOGY PTT 27.1 22.9 - 35.8 09/11/2011 Normal <sup>7</sup>Interpretive Data: Heparin T herapeutic Range: 57 - 92 Seconds [facility] HEMATOLOGY INR 1.01 0.85 - 1.17 09/11/2011 Normal <sup>6</sup>Interpretive Data: RECOMMEND ED RANGES FOR PROTIME INR: 2.0-3.0 for most medical and surgical thromboembolic states. 2.5-3.5 for artificial heart valves and recurrent embolism. INR SHOULD BE USED ONLY FOR PATIENTS ON STABLE ANTICOAGULANT THERAPY. [facility] HEMATOLOGY Basophils # 0.0 0.0 - 0.2 09/09/2011 Normal [facility] CHEMISTRY eGFR >60 09/07/2011 NA <sup>1</sup>Result Comment: Expected eGFR for >20 yr. age group: >=60 ml/min/1.73 sq m The eGFR calculation is not valid in or for persons < 18 years of age. From [employer] Education [employer] (NKDEP) [facility] Microbiology Culture: Wound/Abscess w/Gram Stain 09/07/2011 [facility] Pathology Reports No Data Provided for This [...] exchanges and dilations were performed. A 7 Citizen [place] triple-lumen central venous catheter was passed into [...] use. Salvador Cochran MD On 12/07/2019 16:34:31; [id number] 12/07/2019 [facility] Chest 1 v for Placement [...] atrium. Alfredo Junior MD On 12/07/2019 14:23:27; [id number] 12/07/2019 [facility] Abdomen AP DX PROCEDURE INFORM [...] Maxwell Abbott MD On 12/05/2019 14:07:06; MARCO [id number] 12/05/2019 [facility] Ankle 3 views DX PROCEDURE [...] Bacilio Sutton MD On 12/02/2019 23:24:19; MARCO [id number] 12/02/2019 [facility] Chest 1view DX PROCEDURE INFOR [...] Low inspiratory result without focal consolidation or Siobhan B lines. Linear platelike atelectasis or artifact [...] SVC. Dangelo Thomas MD On 11/15/2019 09:29:54; [id number] 11/15/2019 [facility] Abdomen AP DX PROCEDURE INFORM [...] Escoto MD On 11/14/2019 09:50:32; [id number] 11/14/2019 [facility] Renal Lasix Scan GA PROCEDURE INFORMATION: Exam: NM Kidney Imaging with [...] absent. Bhavin Jean MD On 11/10/2019 12:58:14; [id number] 11/10/2019 [facility] Abdomen/Pelvis wo IV contrast CT [...] lymphadenopathy Alfredo Junior MD On 11/09/2019 16:07:29; [id number] 11/09/2019 [facility] CVC insert tunnel w/-w/o port/pump [...] per protocol prior to the procedure. TECHNIQUE: semaphore operator: Dr. Novak Preoperative diagnosis: Need for long-term [...] vein. 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 No other abnormal areas of tracer [...] scan. Bhavin Jean MD On 11/08/2019 14:46:32; [id number] 11/08/2019 [facility] Bone survey Myeloma DX PROCEDU [...] lesions. Jordi Bates MD On 11/07/2019 13:54:18; [id number] 11/07/2019 [facility] Abdomen AP DX PROCEDURE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 109 06/12/2016 [facility] Respitory Rate 18 06/12/2016 [facility] Temperature Oral (F) 98.3 F 06/12/2016 [facility] Respitory Rate 18 06/12/2016 [facility] Systolic (mm Hg) 126 06/12/2016 [facility] Diastolic (mm Hg) 74 06/12/2016 [facility] Temperature Oral (F) 98.6 F 06/12/2016 [facility] Heart Rate 111 06/12/2016 [facility] Heart Rate 93 06/12/2016 [facility] Respitory Rate 18 06/12/2016 [facility] Systolic (mm Hg) 110 06/12/2016 [facility] Diastolic (mm Hg) 64 06/12/2016 [facility] Temperature Oral (F) 98.1 F 06/12/2016 [facility] Weight 83.182 06/01/2016 [facility] Height 182.88 cm 06/01/2016 [facility] BMI Calculated 24.87 06/01/2016 [facility] BMI Calculated 21.75 06/01/2016 [facility] Weight 72.727 06/01/2016 [facility] Height 182.88 cm 06/01/2016 [facility] Heart Rate 73 01/13/2016 [facility] Temperature Oral (F) 98.5 F 01/13/2016 [facility] Systolic (mm Hg) 143 01/13/2016 [facility] Diastolic (mm Hg) 85 01/13/2016 [facility] Respitory Rate 20 01/13/2016 [facility] Heart Rate 71 01/13/2016 [facility] Respitory Rate 18 01/13/2016 [facility] Systolic (mm Hg) 127 01/13/2016 [facility] Diastolic (mm Hg) 77 01/13/2016 [facility] Temperature Oral (F) 98.0 F 01/13/2016 [facility] Respitory Rate 18 01/13/2016 [facility] Systolic (mm Hg) 127 01/13/2016 [facility] Diastolic (mm Hg) 88 01/13/2016 [facility] Heart Rate 112 01/13/2016 [facility] Temperature Oral (F) 97.5 F 01/13/2016 [facility] Weight 70.455 01/13/2016 [facility] Temperature Oral (F) 98.0 F 01/12/2016 [facility] Systolic (mm Hg) 118 01/12/2016 [facility] Diastolic (mm Hg) 74 01/12/2016 [facility] Heart Rate 98 01/12/2016 [facility] Respitory Rate 20 01/12/2016 [facility] Systolic (mm Hg) 121 01/12/2016 [facility] Diastolic (mm Hg) 69 01/12/2016 [facility] Respitory Rate 18 01/12/2016 [facility] Heart Rate 83 01/12/2016 [facility] Temperature Oral (F) 98.3 F 01/12/2016 [facility] Systolic (mm Hg) 112 01/12/2016 [facility] Diastolic (mm Hg) 75 01/12/2016 [facility] Respitory Rate 18 01/12/2016 [facility] Heart Rate 119 01/12/2016 [facility] Temperature Oral (F) 97.8 F 01/12/2016 [facility] Height 182.88 cm 01/01/2016 [facility] BMI Calculated 20.99 01/01/2016 [facility] Weight 70.2 01/01/2016 [facility] Weight 65.909 01/01/2016 [facility] Height 182.88 cm 01/01/2016 [facility] BMI Calculated 19.71 01/01/2016 [facility] Heart Rate 103 10/20/2015 [facility] Respitory Rate 18 10/20/2015 [facility] Systolic (mm Hg) 124 10/20/2015 [facility] Diastolic (mm Hg) 87 10/20/2015 [facility] Temperature Oral (F) 97.8 F 10/20/2015 [facility] Respitory Rate 18 10/20/2015 [facility] Systolic (mm Hg) 107 10/20/2015 [facility] Diastolic (mm Hg) 68 10/20/2015 [facility] Heart Rate 121 10/20/2015 [facility] Temperature Oral (F) 98.6 F 10/20/2015 [facility] Heart Rate 118 10/20/2015 [facility] Respitory Rate 18 10/20/2015 [facility] Systolic (mm Hg) 125 10/20/2015 [facility] Diastolic (mm Hg) 76 10/20/2015 [facility] Temperature Oral (F) 97.6 F 10/20/2015 [facility] BMI Calculated 23.1 10/19/2015 [facility] Weight 77.273 10/19/2015 [facility] Height 182.88 cm 10/19/2015 [facility] Systolic (mm Hg) 133 10/19/2015 [facility] Diastolic (mm Hg) 86 10/19/2015 [facility] Respitory Rate 20 10/19/2015 [facility] Heart Rate 111 10/19/2015 [facility] Heart Rate 107 10/19/2015 [facility] Systolic (mm Hg) 144 10/19/2015 [facility] Diastolic (mm Hg) 90 10/19/2015 [facility] Heart Rate 113 10/19/2015 [facility] Systolic (mm Hg) 125 10/19/2015 [facility] Diastolic (mm Hg) 84 10/19/2015 [facility] Respitory Rate 18 10/19/2015 [facility] Temperature Oral (F) 98.4 F 10/19/2015 [facility] Respitory Rate 20 10/19/2015 [facility] Temperature Oral (F) 98.4 F 10/19/2015 [facility] BMI Calculated 19.01 10/19/2015 [facility] Height 195.58 cm 10/19/2015 [facility] Weight 72.727 10/19/2015 [facility] Temperature Oral (F) 97.8 F 10/19/2015 [facility] Heart Rate 94 10/19/2015 [facility] Systolic (mm Hg) 114 10/19/2015 [facility] Diastolic (mm Hg) 76 10/19/2015 [facility] Respitory Rate 18 10/19/2015 [facility] Systolic (mm Hg) 102 10/18/2015 [facility] Diastolic (mm Hg) 62 10/18/2015 [facility] Heart Rate 86 10/18/2015 [facility] Respitory Rate 18 10/18/2015 [facility] Temperature Oral (F) 97.9 F 10/18/2015 [facility] Systolic (mm Hg) 93 10/18/2015 [facility] Diastolic (mm Hg) 60 10/18/2015 [facility] Heart Rate 74 10/18/2015 [facility] Respitory Rate 18 10/18/2015 [facility] Temperature Oral (F) 98.7 F 10/18/2015 [facility] BMI Calculated 20.39 10/16/2015 [facility] Weight 68.182 10/16/2015 [facility] Height 182.88 cm 10/16/2015 [facility] Respitory Rate 20 10/16/2015 [facility] Heart Rate 111 10/16/2015 [facility] Systolic (mm Hg) 104 10/16/2015 [facility] Diastolic (mm Hg) 69 10/16/2015 [facility] Temperature Oral (F) 98.5 F 10/16/2015 [facility] Heart Rate 107 10/16/2015 [facility] Respitory Rate 20 10/16/2015 [facility] Systolic (mm Hg) 103 10/16/2015 [facility] Diastolic (mm Hg) 72 10/16/2015 [facility] Temperature Oral (F) 98.5 F 10/16/2015 [facility] Temperature Oral (F) 97.6 F 10/16/2015 [facility] Heart Rate 107 10/16/2015 [facility] Respitory Rate 20 10/16/2015 [facility] Systolic (mm Hg) 100 10/16/2015 [facility] Diastolic (mm Hg) 65 10/16/2015 [facility] Weight 69.574 09/13/2015 [facility] BMI Calculated 20.8 09/13/2015 [facility] Height 182.88 cm 09/13/2015 [facility] Height 182.88 cm 09/13/2015 [facility] Weight 65.909 09/13/2015 [facility] BMI Calculated 19.71 09/13/2015 [facility] Weight 65.909 09/13/2015 [facility] BMI Calculated 19.71 09/13/2015 [facility] Height 182.88 cm 09/13/2015 [facility] Weight 63.6 09/12/2015 [facility] Heart Rate 108 09/12/2015 [facility] Temperature Oral (F) 97.8 F 09/12/2015 [facility] Systolic (mm Hg) 129 09/12/2015 [facility] Diastolic (mm Hg) 87 09/12/2015 [facility] Respitory Rate 18 09/12/2015 [facility] Temperature Oral (F) 97.5 F 09/12/2015 [facility] Systolic (mm Hg) 117 09/12/2015 [facility] Diastolic (mm Hg) 82 09/12/2015 [facility] Respitory Rate 20 09/12/2015 [facility] Heart Rate 128 09/12/2015 [facility] Height 182.88 cm 09/12/2015 [facility] BMI Calculated 19.03 09/12/2015 [facility] Weight 63.636 09/12/2015 [facility] Heart Rate 134 09/12/2015 [facility] Temperature Oral (F) 98.9 F 09/12/2015 [facility] Systolic (mm Hg) 123 09/12/2015 [facility] Diastolic (mm Hg) 78 09/12/2015 [facility] Respitory Rate 24 09/12/2015 [facility] Temperature Oral (F) 97.5 F 09/11/2015 [facility] Systolic (mm Hg) 132 09/11/2015 [facility] Diastolic (mm Hg) 80 09/11/2015 [facility] Heart Rate 126 09/11/2015 [facility] Respitory Rate 18 09/11/2015 [facility] Systolic (mm Hg) 124 09/11/2015 [facility] Diastolic (mm Hg) 85 09/11/2015 [facility] Heart Rate 84 09/11/2015 [facility] Respitory Rate 18 09/11/2015 [facility] Temperature Oral (F) 97.3 F 09/11/2015 [facility] Temperature Oral (F) 97.3 F 09/11/2015 [facility] Respitory Rate 16 09/11/2015 [facility] Heart Rate 91 09/11/2015 [facility] Systolic (mm Hg) 121 09/11/2015 [facility] Diastolic (mm Hg) 77 09/11/2015 [facility] BMI Calculated 19.71 09/07/2015 [facility] Weight 65.909 09/07/2015 [facility] Height 182.88 cm 09/07/2015 [facility] BMI Calculated 19.71 09/07/2015 [facility] Height 182.88 cm 09/07/2015 [facility] Weight 65.909 09/07/2015 [facility] Heart Rate 132 09/06/2015 [facility] Systolic (mm Hg) 103 09/06/2015 [facility] Diastolic (mm Hg) 70 09/06/2015 [facility] Respitory Rate 22 09/06/2015 [facility] Temperature Oral (F) 98.0 F 09/06/2015 [facility] Temperature Oral (F) 97.7 F 09/05/2015 [facility] Heart Rate 105 09/05/2015 [facility] Respitory Rate 18 09/05/2015 [facility] Systolic (mm Hg) 102 09/05/2015 [facility] Diastolic (mm Hg) 86 09/05/2015 [facility] Systolic (mm Hg) 108 09/05/2015 [facility] Diastolic (mm Hg) 67 09/05/2015 [facility] Respitory Rate 20 09/05/2015 [facility] Temperature Oral (F) 98.5 F 09/05/2015 [facility] Heart Rate 112 09/05/2015 [facility] BMI Calculated 19.71 08/25/2015 [facility] Weight 65.909 08/25/2015 [facility] Height 182.88 cm 08/25/2015 [facility] Weight 65.909 08/25/2015 [facility] Height 182.88 cm 08/25/2015 [facility] BMI Calculated 19.71 08/25/2015 [facility] Temperature Oral (F) 97.8 F 08/24/2015 [facility] Systolic (mm Hg) 127 08/24/2015 [facility] Diastolic (mm Hg) 77 08/24/2015 [facility] Heart Rate 84 08/24/2015 [facility] Temperature Oral (F) 97.8 F 08/24/2015 [facility] Heart Rate 83 08/24/2015 [facility] Systolic (mm Hg) 125 08/24/2015 [facility] Diastolic (mm Hg) 78 08/24/2015 [facility] Systolic (mm Hg) 115 08/24/2015 [facility] Diastolic (mm Hg) 73 08/24/2015 [facility] Heart Rate 84 08/24/2015 [facility] Temperature Oral (F) 97.5 F 08/24/2015 [facility] Respitory Rate 14 08/24/2015 [facility] Respitory Rate 18 08/24/2015 [facility] Respitory Rate 18 08/24/2015 [facility] Weight 69.8 08/09/2015 [facility] BMI Calculated 22.08 08/09/2015 [facility] Height 177.8 cm 08/09/2015 [facility] Weight 86.364 08/08/2015 [facility] BMI Calculated 25.82 08/08/2015 [facility] Height 182.88 cm 08/08/2015 [facility] Systolic (mm Hg) 116 06/21/2015 [facility] Diastolic (mm Hg) 73 06/21/2015 [facility] Temperature Oral (F) 97.9 F 06/21/2015 [facility] Respitory Rate 18 06/21/2015 [facility] Heart Rate 93 06/21/2015 [facility] Systolic (mm Hg) 136 06/21/2015 [facility] Diastolic (mm Hg) 82 06/21/2015 [facility] Respitory Rate 18 06/21/2015 [facility] Heart Rate 95 06/21/2015 [facility] Temperature Oral (F) 98.0 F 06/21/2015 [facility] Systolic (mm Hg) 105 06/21/2015 [facility] Diastolic (mm Hg) 70 06/21/2015 [facility] Temperature Oral (F) 98.1 F 06/21/2015 [facility] Respitory Rate 18 06/21/2015 [facility] Heart Rate 101 06/21/2015 [facility] Height 182.88 cm 06/17/2015 [facility] Weight 69.8 06/17/2015 [facility] BMI Calculated 20.87 06/17/2015 [facility] BMI Calculated 19.71 06/16/2015 [facility] Weight 65.909 06/16/2015 [facility] Height 182.88 cm 06/16/2015 [facility] Temperature Oral (F) 97.3 F 06/05/2015 [facility] Heart Rate 103 06/05/2015 [facility] Respitory Rate 16 06/05/2015 [facility] Systolic (mm Hg) 114 06/05/2015 [facility] Diastolic (mm Hg) 70 06/05/2015 [facility] Systolic (mm Hg) 122 06/05/2015 [facility] Diastolic (mm Hg) 78 06/05/2015 [facility] Respitory Rate 18 06/05/2015 [facility] Heart Rate 74 06/05/2015 [facility] Temperature Oral (F) 97.5 F 06/05/2015 [facility] [...] [facility] Height 185.42 cm 05/15/2012 [facility] Heart Rate 69 02/28/2012 [facility] Diastolic (mm Hg) 73 02/28/2012 [facility] Systolic (mm Hg) 125 02/28/2012 [facility] Temperature Oral (F) 97.4 F 02/28/2012 [facility] Respitory Rate 19 02/28/2012 [facility] Diastolic (mm Hg) 80 02/28/2012 [facility] Systolic (mm Hg) 123 02/28/2012 [facility] Respitory Rate 20 02/28/2012 [facility] Heart Rate 73 02/28/2012 [facility] Temperature Oral (F) 97.1 F 02/28/2012 [facility] Systolic (mm Hg) 126 02/28/2012 [facility] Diastolic (mm Hg) 77 02/28/2012 [facility] Respitory Rate 20 02/28/2012 [facility] Temperature Oral (F) 97.6 F 02/28/2012 [facility] Heart Rate 79 02/28/2012 [facility] Height 182.88 cm 02/12/2012 [facility] Weight 57.000 02/12/2012 [facility] Weight 57.000 02/12/2012 [facility] Height 182.88 cm 02/12/2012 [facility] Weight 61.364 02/11/2012 [facility] Systolic (mm Hg) 122 01/05/2012 [facility] Diastolic (mm Hg) 80 01/05/2012 [facility] Heart Rate 72 01/05/2012 [facility] Temperature Oral (F) 97.4 F 01/05/2012 [facility] Respitory Rate 16 01/05/2012 [facility] Heart Rate 73 01/05/2012 [facility] Respitory Rate 16 01/05/2012 [facility] Systolic (mm Hg) 130 01/05/2012 [facility] Diastolic (mm Hg) 90 01/05/2012 [facility] Temperature Oral (F) 97.4 F 01/05/2012 [facility] Diastolic (mm Hg) 81 01/05/2012 [facility] Systolic (mm Hg) 123 01/05/2012 [facility] Respitory Rate 20 01/05/2012 [facility] Heart Rate 87 01/05/2012 [facility] Temperature Oral (F) 98.3 F 01/05/2012 [facility] Height 182.88 cm 01/01/2012 [facility] Weight 63.636 01/01/2012 [facility] Temperature Oral (F) 97.0 F 12/28/2011 [facility] Respitory Rate 16 12/28/2011 [facility] Diastolic (mm Hg) 75 12/28/2011 [facility] Heart Rate 52 12/28/2011 [facility] Systolic (mm Hg) 119 12/28/2011 [facility] Diastolic (mm Hg) 86 12/28/2011 [facility] Systolic (mm Hg) 134 12/28/2011 [facility] Temperature Oral (F) 98.5 F 12/28/2011 [facility] Heart Rate 98 12/28/2011 [facility] Respitory Rate 18 12/28/2011 [facility] Respitory Rate 18 12/27/2011 [facility] Systolic (mm Hg) 162 12/27/2011 [facility] Heart Rate 46 12/27/2011 [facility] Diastolic (mm Hg) 91 12/27/2011 [facility] Temperature Oral (F) 97.8 F 12/27/2011 [facility] Height 182.88 cm 12/23/2011 [facility] Weight 61.932 12/23/2011 [facility] Weight 56.818 12/22/2011 [facility] Height 152.40 cm 12/22/2011 [facility] Respitory Rate 18 12/09/2011 [facility] Heart Rate 104 12/09/2011 [facility] Diastolic (mm Hg) 87 12/09/2011 [facility] Systolic (mm Hg) 120 12/09/2011 [facility] Temperature Oral (F) 97.9 F 12/09/2011 [facility] Respitory Rate 18 12/09/2011 [facility] Heart Rate 67 12/09/2011 [facility] Systolic (mm Hg) 131 12/09/2011 [facility] Diastolic (mm Hg) 88 12/09/2011 [facility] Temperature Oral (F) 98.3 F 12/09/2011 [facility] Temperature Oral (F) 98.6 F 12/09/2011 [facility] Respitory Rate 18 12/09/2011 [facility] Heart Rate 97 12/09/2011 [facility] Diastolic (mm Hg) 58 12/09/2011 [facility] Systolic (mm Hg) 112 12/09/2011 [facility] Height 165.10 cm 12/04/2011 [facility] Weight 56.818 12/04/2011 [facility] Heart Rate 70 11/12/2011 [facility] Respitory Rate 20 11/12/2011 [facility] Systolic (mm Hg) 157 11/12/2011 [facility] Diastolic (mm Hg) 89 11/12/2011 [facility] Temperature Oral (F) 98.6 F 11/12/2011 [facility] Temperature Oral (F) 98.8 F 11/11/2011 [facility] Heart Rate 67 11/11/2011 [facility] Systolic (mm Hg) 168 11/11/2011 [facility] Respitory Rate 20 11/11/2011 [facility] Diastolic (mm Hg) 96 11/11/2011 [facility] Diastolic (mm Hg) 101 11/11/2011 [facility] Systolic (mm Hg) 170 11/11/2011 [facility] Respitory Rate 18 11/11/2011 [facility] Heart Rate 60 11/11/2011 [facility] Temperature Oral (F) 99.0 F 11/11/2011 [facility] Weight 63.200 11/08/2011 [facility] Weight 62.000 11/07/2011 [facility] Weight 64.205 11/07/2011 [facility] Height 182.88 cm 11/07/2011 [facility] Temperature Oral (F) 97.5 F 10/23/2011 [facility] Systolic (mm Hg) 138 10/23/2011 [facility] Respitory Rate 19 10/23/2011 [facility] Heart Rate 83 10/23/2011 [facility] Diastolic (mm Hg) 96 10/23/2011 [facility] Systolic (mm Hg) 116 10/23/2011 [facility] Diastolic (mm Hg) 77 10/23/2011 [facility] Temperature Oral (F) 97.7 F 10/23/2011 [facility] Heart Rate 79 10/23/2011 [facility] Respitory Rate 20 10/23/2011 [facility] Diastolic (mm Hg) 48 10/23/2011 [facility] Systolic (mm Hg) 103 10/23/2011 [facility] Temperature Oral (F) 98.0 F 10/23/2011 [facility] Heart Rate 68 10/23/2011 [facility] Respitory Rate 20 10/23/2011 [facility] Weight 74.600 10/16/2011 [facility] Weight 68.182 10/15/2011 [facility] Height 182.88 cm 10/15/2011 [facility] Diastolic (mm Hg) 70 09/13/2011 [facility] Heart Rate 95 09/13/2011 [facility] Temperature Oral (F) 97.7 F 09/13/2011 [facility] Systolic (mm Hg) 117 09/13/2011 [facility] Respitory Rate 18 09/13/2011 [facility] Heart Rate 59 09/13/2011 [facility] Diastolic (mm Hg) 67 09/13/2011 [facility] Respitory Rate 18 09/13/2011 [facility] Systolic (mm Hg) 117 09/13/2011 [facility] Temperature Oral (F) 97.9 F 09/13/2011 [facility] Respitory Rate 20 09/13/2011 [facility] Temperature Oral (F) 98.3 F 09/13/2011 [facility] Heart Rate 67 09/13/2011 [facility] Systolic (mm Hg) 122 09/13/2011 [facility] Diastolic (mm Hg) 75 09/13/2011 [facility] Weight 61.364 09/07/2011 [facility] Height 182.88 cm 09/07/2011 [facility] Systolic (mm Hg) 129.0 05/03/2011 [facility] Diastolic [...] ADM Date DC Date Status Source Outpatient [id number] EVALUATION IZA CLEMENTE JR 04/10/2011 04/10/2011 Active [facility] Emergency [id number] CHEST PAIN JUAN C SOMMEROBODA 04/11/2011 04/12/2011 Active [facility] Inpatient [id number] CELLULITIS ON LEF T FOOT YASMANY WEINBERG JR 09/06/2011 09/13/2011 Active [facility] Inpatient [id number] ACUTE RENAL FAILU RE YASMANY WEINBERG JR 10/15/2011 10/23/2011 Active [facility] Inpatient [id number] VOMITING NAUSEA U TI EUGENE LISETH 11/08/2011 11/11/2011 Active [facility] Inpatient [id number] ACUTE URINARY TRA CT INFECTION/RENAL STENT FREDDIE SONY 12/05/2011 12/09/2011 Active [facility] Inpatient [id number] PYELONEPHRITIS, INTRACTABLE VOMITING, FAILURE TO THRIVE GUIDO ARVIND 12/23/2011 12/28/2011 Active [facility] Inpatient [id number] PNEUMONIA GUIDO ARVIND 01/01/2012 01/05/2012 Active [facility] Inpatient [id number] ACUTE UTI ALLEN ARRIAGA 02/12/2012 02/28/2012 Active [facility] Inpatient [id number] URINARY TRACT INF ECTION IZA AESTMAN 05/16/2012 05/22/2012 Active [facility] Inpatient [id number] Katie Oakes 06/25/2014 06/29/2014 [facility] Wound Care [id number] Flakita Almaguer Jr 05/1906/18/2015 [facility] Inpatient [id number] Angeles Samayoa 05/27/2015 06/05/2015 [facility] Inpatient [id number] Ace Clay 06/16/2015 06/21/2015 [facility] Inpatient [id number] Susan David 08/08/2015 08/25/2015 [facility] Inpatient [id number] Noe Henningomero 08/25/19 16 09/06/2015 [facility] Inpatient [id number] Vishnu Fox 09/07/2015 09/12/2015 [facility] Inpatient [id number] Litzy Blasjayesh 09/12/2015 09/12/2015 [facility] Inpatient [id number] Yaya Ballard 09/13/2015 10/16/2015 [facility] Inpatient [id number] Truman Gigi 10/16/2015 10/19/2015 [facility] [id number] Zechariah Cruz 10/19/2015 10/19/2015 [facility] Inpatient [id number] Cash Wiggins Trevon 10/19/19 16 10/20/2015 [facility] Pre Admit [id number] Lizzy Gutierrez 10/20/2015 10/20/2015 [facility] Inpatient [id number] Francisco Asrhaf 01/01/2016 01/12/2016 [facility] [id number] Db Howard 01/13/2016 01/13/2016 [facility] Inpatient [id number] Victor M Cortez 06/01/2016 06/12/2016 [facility] Emergency [id number] Edy Cr 08/10/2016 08/10/2016 [facility] Emergency [id number] Fabrice Mchugh 08/11/2016 08/11/2016 [facility] Inpatient [id number] Vamshi Peterson 08/11/2016 08/23/[address] [facility] Emergency [id number] J Luis Loredo 08/23/2016 08/24/2016 [facility] Inpatient [id number] Khadishastat Ogunbiyi 08/30/2016 09/04/2016 [facility] Emergency [id number] Khadijat Ogunbiyi 09/10/2016 09/10/2016 [facility] Emergency [id number] Dinora Akujobi 09/22/2016 09/22/2016 [facility] Inpatient [id number] Zach Cecillemotharan 09/25/2016 10/04/2016 [facility] Inpatient [id number] Victor M Phoebeaokocleopatra 10/23/2016 10/26/2016 [facility] Emergency [id number] Maximo Dailey Jr 11/05/2016 11/05/2016 [facility] Inpatient [id number] Joelle Mclean 11/07/2016 11/28/2016 [facility] Inpatient [id number] Guevara Brenner 12/09/2016 12/25/2016 [facility] Inpatient [id number] Prince Smith 01/01/2017 01/04/2017 [facility] Inpatient [id number] Janina Hood 01/16/2017 01/21/2017 [facility] Outpatient [id number] DHARMESH HINTON 02/03/2017 [facility] Inpatient [id number] Brandyn Salinas 02/23/2017 03/06/2017 [facility] Inpatient [id number] Zechariah Cruz 05/22/2017 05/28/2017 [facility] Inpatient [id number] Michelet Santana 09/10/2017 10/22/2017 [facility] Inpatient [id number] Irasema Mckeon 01/15/2018 01/20/2018 [facility] Inpatient [id number] Jessie King 03/15/2018 03/20/2018 [facility] Outpatient [id number] EDY CONCEPCION 05/14/2018 [facility] Ambulatory Pre-Reg [id number] Edy Concepcion 05/14/2018 05/14/2018 [facility] Inpatient [id number] Michelet Santana 05/21/2018 06/02/2018 [facility] Inpatient [id number] Callum Aguilera 8 07/01/2018 [facility] Inpatient [id number] Vandana Mahoney 07/04/2018 07/08/2018 [facility] Inpatient [id number] Silvestre Turcios 11/04/2019 11/18/2019 [facility] Outpatient [id number] Jose Rivas 11/05/2019 Active [facility] Inpatient [id number] Kaitlin Montoya 08/201912/09/2019 [facility] Outpatient [id number] ULCER ON SPINE, PRESSURE SORES ON FEET LEXI JOYCE Active [facility] Outpatient [id number] FU SALVADOR MOSQUEDA Cancel [facility] Outpatient [id number] NEW PT CONSULT PE R DR KSENIA MCCORMACK Cancel [facility] Outpatient [id number] F/U GIFTY LOUIE Active [facility] Procedures Procedure Code Date Perfomer Comments Source INCISION AND DEBRIDEMENT RIGHT HIP WOUND [id number] 06/03/2015 [facility] ,[facility] Colonoscopy [id number] 08/04/2008 [facility] Group,[facility] Nephrectomy [id number] 08/04/2005 [facility] Amputation<sup>1</sup> [id number] amputation of left 5th toe. Medical Group,[facility] ,[facility] Colostomy [id number] [facility] Lap[facility] [id number] [facility] Wound care [id number] [facility] Assessment and Plan Assessment and Plan Date [...] no rhonchi Heart: S1, S2, regular rhythm. BLADE BALANCER: Wounds: Location: sacrum and ischium wound and [...] tab, PO, Bedtime fluconazole 400 mg, IVPB, [id number] heparin 5000 unit/1 ml INJ VL 5,000 unit 1 mL, SUB-Q, Q12H meropenem 500mg vial + sodium chloride 0.9% INJ 100ml (mini-bag Plus) 100 mL 500 mg, IVPB, ABXQ8H micafungin sodium 100mg inj + sodium chloride 0.9% INJ 100ml (mini-bag Plus) 100 mL 100 mg, IV, [id number] midodrine 5 mg TAB 10 mg 2 [...] ulcer and osteomyelitis. [facility]. He was sent back [...] 9% IV 100 mL 100 mg IV [id number] 100 ml/hr 12/06/19 midodrine 10 mg PO [...] Record In Out Bal 12/05 24hr Tot [phone] 12/04 24hr Tot [phone] Lines, Tubes, and Drains: 12/05/2019 20:00 GI [...] Consultants: General surgery, ID, wound care 11/18/2019 [facility] Extracted from:Title: Hospitalist gilbert ss [...] urinary tract infection and discharged to his snf. He was readmitted for altered mental status [...] denied from his previous personal half-way and social sciences chair is going to find him a new facility. 07/08/2018 [facility] Extracted from:Title: Discharge summary Author: Prabhu Fine MD Date: 07/01/18 Patient was to discharge yesterday. Discharge was canceled after difficulty with contacting snf. There were no acute events overnight. The patient's vital signs have been stable over the past 24 hours. Today the patient had no complaints. His clinical status is unchanged. He will be discharging to snf. For full discharge summary see dictation dated [...] follow up on discharge call Dr Moreira [phone] SUBJECTIVE: Seen and examined. Events noted. 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, Duration: 7 day, Stop date: 06/27/18 17:00:00 [employer] PRESIDENT/PRACTICE OWNER, ABX Indication: Skin/Soft Tissue Infection CDM Sepsis, 06/20/18 21:12:00 [employer] PRESIDENT/PRACTICE OWNER, 1 CDM SSTI, Skin and Soft Tissue Antibiotic, 06/20/18 21:12:00 [employer] PRESIDENT/PRACTICE OWNER, 1 2.Decubitus ulcers(L89.90), Decubitus ulcers(L89.90) Ordered: cefepime + Sodium Chloride 0.9% IV 100 mL, 1 gm, Route: IVP, ABXQ6H, Dosing Weight 80.003, kg, CrCl >/= 50 ml/min, Start date: 06/20/18 23:00:00 [employer]OMETRI[employer] 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/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 OWNER, Duration: 7 day, Stop date: 06/27/18 17:00:00 [employer]OMETRIST PRESIDENT/PRACTICE OWNER, ABX Indication: Skin/Soft Tissue Infection CDM Sepsis, 06/20/18 21:12:00 [employer]OMETRIST PRESIDENT/PRACTICE OWNER, 1 CDM SSTI, Skin and Soft Tissue Antibiotic, 06/20/18 21:12:00 [employer]OM[employer]RIST PRESIDENT/PRACTICE OWNER, 1 3.Tachycardia(R00.0), Tachycardia(R00.0) Ordered: cefepime + Sodium Chloride 0.9% IV 100 mL, 1 gm, Route: IVP, ABXQ6H, Dosing Weight 80.003, kg, CrCl >/= 50 ml/min, Start date: 06/20/18 23:00:00 [employer]OMETRIST PRESIDENT/PRACTICE OWNER, Duration: 7 day, Stop date: 06/27/18 17:00:00 [employer]OMETRIST PRESIDENT/PRACTICE OWNER, ABX Indication: Skin/Soft Tissue Infection CDM Sepsis, 06/20/18 21:12:00 OPTOMETRIST PRESIDENT/PRACTICE OWNER, 1 CDM SSTI, Skin and Soft Tissue Antibiotic, 06/20/18 21:12:00 [employer]OMETRIST PRESIDENT/PRACTICE OWNER, 1 6.Anemia(D64.9) 6.Paraplegia(G82.20), Paraplegia(G82.20) Ordered: cefepime + Sodium Chloride 0.9% IV 100 mL, 1 gm, Route: IVP, ABXQ6H, Dosing Weight 80.003, kg, CrCl >/= 50 ml/min, Start date: 06/20/18 23:00:00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
--- OUTSIDE RECORDS SUMMARY | 2020-03-18 14:41 | XMS REPORT | Continuity of Care Document ---
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 MARIELENA [place]BRIDE [place] [id number] [facility] 2019-12-02 23:05:00 2019-12-02 19:48:00 Inpatient [facility] [id number] [facility] 2019-10-22 00:00:00 2019-10-22 00:00:00 Emergency THONG GONSALEZ [place] [id number] [facility] 2019-10-15 00:00:00 2019-10-22 00:00:00 Inpatient BRADLY GIBSON [place] [id number] [facility] 2019-08-17 00:00:00 2019-09-13 00:00:00 Inpatient HILDA QUIROS [place] [id number] [facility] 2019-08-06 00:00:00 2019-08-17 00:00:00 Inpatient GRANT JIMENES [facility] [id number] [facility] 2019-02-12 20:34:00 2019-02-17 18:25:00 Inpatient E RAUL TORRES OM [facility] [id number] [facility] 2017-02-01 00:01:00 2017-02-01 00:01:00 Outpatient C [facility] [id number] [facility] 2017-01-13 14:03:00 2017-01-13 14:03:00 Outpatient C [facility] [id number] [facility] 2016-08-25 05:37:36 2016-08-25 05:37:36 Emergency [facility] [id number] [facility] Results Test Description Test Time Test Comments Results Result Comments Source CT BRAIN WO 2020-03-18 12:02:00 [place] [id number] Patient Name: MAXIMO GASTELUM MR #: [id number] : 1985 Age/Sex: 35[id number] Req #: [id number] Adm Physician: Ordered by: EVARISTO ESCOBAR MD Report #: [id number] Location: Room/Bed: Procedure: [id number] CT/CT BRAIN WO Exam Date: 03/18/20 Exam Time: 1135 REPORT STATUS: Signed EXAMINATION: Head CT HISTORY: 35-year-old male with altered mental status COMPARISON: None. TECHNIQUE: Helical axial images of the head were obtained. Reformatted coronal and sagittal images from the axial data. Dose modulation, iterative reconstruction, and/or weight based adjustment of the mA/kV was utilized to reduce the radiation dose to as low as reasonably achievable. Image quality: Motion/streaking artifact limits the evaluation of the skull base and posterior cranial fossa. FINDINGS: Parenchyma: 1. No abnormal densities. 2. No mass or hemorrhage. No CT evidence of acute territorial vascular insult. Extra- axial spaces:No abnormal density. No extra-axial fluid collections Brain volume: Normal for age. Ventricles: No hydrocephalus or displacement. Arteries: No density suggestive of thrombus. Dural sinuses: No abnormal density. Foramen magnum: No mass, Chiari malformation, or basilar invagination. Sella: No obvious mass. Paranasal/mastoid sinuses: Imaged portions unremarkable. Skull/Scalp: No lytic or blastic lesions. No fractures. IMPRESSION: Normal head CT. Signed by: Dr. Wu Leblanc M.D. on 03/18/2020 12:05 PM Dictated By: WU LEBLANC MD 04 Transcribed By: YOBANI on 03/18/201204 COPY TO: EVARISTO ESCOBAR MD CHEST SINGLE (PORTABLE) 2020-03-18 10:40:00 [address] [place], [place] [address] Patient Name: MAXIMO GASTELUM MR #: [id number] : 1985 Age/Sex: 35/M Req #: [id number] [facility] Physician: Ordered by: EVARISTO ESCOBAR MD Report #: [id number] Location: ER Room/Bed: Procedure: [id number] DX/CHEST SINGLE (PORTABLE) Exam Date: 03/18/20 Exam Time: 1011 REPORT STATUS: Signed ADDENDUM #1 Original report stated right PICC. However, patient has a right internal jugular central venous catheter in place. Signed by: Gera Adams MD on 03/18/2020 11:08 AM ORIGINAL REPORT EXAMINATION: CHEST SINGLE (PORTABLE) INDICATION: Low blood pressure COMPARISON: None FINDINGS: TUBES and LINES: Right PICC which terminates in the right atrium. LUNGS: Low lung volumes with bronchovascular crowding. There is patchy interstitial and airspace opacities throughout both lungs with superimposed bibasilar atelectasis. PLEURA: No pleural effusion or pneum othorax. HEART AND MEDIASTINUM: The cardiomediastinal silhouette is unremarkable. BONES AND SOFT TISSUES: No acute osseous lesion. Soft tissues are unremarkable. UPPER ABDOMEN: No free air under the diaphragm. IMPRESSION: Patchy interstitial and airspace opacities throughout both lungs which may be due to low lung volumes with bronchovascular crowding and atelectasis versus developing multifocal pneumonia. Signed by: Gera Adams MD on 03/18/2020 10:42 AM Dictated By: GERA ADAMS MD 1108 Transcribed By: YOBANI on 03/18/20 1042 COPY TO: EVARISTO ESCOBAR MD HEPATITIS C RNA BY PCR (QUAL) 2020-03-12 03:06:00 Test Item HEPATITIS C RNA BY PCR (QUAL) (test code = HCVRNAPCR) Negative Negative Negative: HCV RNA Not DetectedPerformed At: [facility] [address] [id number] Sanjai MD Ph:[phone] - INJ NEPH EXIST [id number] 09:35:00 Name: MAXIMO GASTELUM [facility] : 1985 Age/S: 35 / M [address] [facility] Unit #: [id number] Loc: [place] [address] Phys: Karo Steele MD Acct: [id number] Dis Date: [id number] Status: DIS IN PHONE #: [phone] Exam Date: 03/07/20204 FAX #: [phone] Reason: / EXAMS: CPT CODE: [id number] INJ NEPH EXIST ACCESS 55515 Fluoro Time: 85 DAP (Gy m2): 4.98 [...] : 4980 mGy sq cm Location code: [facility] at 0935 Reported and signed by: Yosvany Ureña M.D. CC: Karo Steele MD Technologist: JENNA ZHANG [employer] INSTRUCTIONAL DESIGNER Trnscb Date/Time: 03/09 (934) SanjuanaGRW Orig Print D/T: S: 03/09/2020 (987 5) PAGE 1 Signed Report HEPATITIS C RNA BY PCR (QUAL)2020-03-08 18:08:00* Test Item Value Reference Range Interpretation Comments HEPATITIS C RNA BY PCR (QUAL) (test code = HCVRNAPCR) Negative Negative Negative: HCV RNA Not DetectedPerformed At: [facility] [address] [id number] Sanjai MD Ph:[phone] [id number] 16:17:00* Test Item Value Reference Range Interpretation Comments GLUBED (test code = GLUBED) 97 mg/dL 74-106 N Performed by certified telephone operator chief at [facility] [id number] 14:21:00* Test Item Value Reference Range Interpretation Comments GLUBED (test code = GLUBED) 49 mg/dL 74-106 LL Performed by certified telephone operator chief at [facility]ified Nurse~ BASIC METABOLIC [id number] 08:44:00* Test Item Value Reference Range Interpretation Comments SODIUM (test code = NA) 141 mmol/L 136-145 N POTASSIUM (test code = K) 4.1 mmol/L 3.5-5.1 N CHLORIDE (test code = CL) 112.0 mmol/L 98-107 H CARBON DIOXIDE (test code = CO2) 20.0 mmol/L 21-32 L Previously reported result: 20.0 mmol/LEdited by: VAkashLAB.LDB on 03/08/20:0844 ANION GAP (test code = GAP) 13.1 [...] CA) 7.4 mg/dL 8.5-10.1 L BASIC METABOLIC [id number] 08:03:00* Test Item Value Reference Range Interpretation [...] code = CA) mg/dL 8.5-10.1 BASIC METABOLIC [id number] 08:03:00* Test Item Value Reference Range Interpretation [...] = CA) 7.4 mg/dL 8.5-10.1 L CALPROTECTIN [id number] 19:08:00* Test Item Value Reference Range Interpretation Comments CALPROTECTIN FECAL (test code = CALFECAL) <16 ug/g 0-120 Concentration Interpretation Follow-Up<16 - 50 ug/g Normal None>50 -120 ug/g Borderline Re-evaluate in 4-6 weeks >120 ug/g Abnormal Repeat as clinically indicatedPerformed At: [facility] [id number] Sanjai MD Ph:[phone] CBC W/AUTO [id number] 12:10:00* Test Item Value Reference Range Interpretation [...] NRBC#) 0.00 K/mm3 0.0-0.1 N CBC W/AUTO [id number] 12:08:00* Test Item Value Reference Range Interpretation [...] code = BA#) K/mm3 0.0-0.2 BASIC METABOLIC [id number] 08:06:00* Test Item Value Reference Range Interpretation [...] 8.5-10.1 L SAMPLE TO BE COLLECTED BY NURSEBASIC METABOLIC [id number] 08:00:00* Test Item Value Reference Range Interpretation [...] mg/dL 8.5-10.1 SAMPLE TO BE COLLECTED BY [facility] METABOLIC [id number] 14:51:00* Test Item Value Reference Range Interpretation [...] READY TO MEET ME TO DRAW HIM V.LAB.CS 1250RN ALF965 1 NOTIFHARTSELLE [facility] METABOLIC [id number] 14:44:00* Test Item Value Reference Range Interpretation [...] READY TO MEET ME TO DRAW HIM V.LAB.CS 1250RN DCZ624 1 NOTIFIEDDRUGS OF ABUSE SCREEN [id number] 14:23:00* Test Item Value Reference Range Interpretation [...] NEGATIVE <300 ng/mL DRUGS OF ABUSE SCREEN [id number] 13:53:00* Test Item Value Reference Range Interpretation [...] code = [place]) <300 ng/mL CBC W/AUTO [id number] 08:38:00* Test Item Value Reference Range Interpretation [...] NRBC#) 0.00 K/mm3 0.0-0.1 N CBC W/AUTO [id number] 08:35:00* Test Item Value Reference Range Interpretation [...] code = BA#) K/mm3 0.0-0.2 COMPREHENSIVE METABOLIC [id number] 07:49:00* Test Item Value Reference Range Interpretation [...] due to change in reagent. BASIC METABOLIC [id number] 14:07:00* Test Item Value Reference Range Interpretation [...] = CA) 7.4 mg/dL 8.5-10.1 L RN WHV6180 NOTIFIEDUNIVERSITY [facility] METABOLIC [id number] 14:00:00* Test Item Value Reference Range Interpretation [...] (test code = CA) mg/dL 8.5-10.1 RN [id number] NOTIFIED- US ABDOMEN [id number] 07:29:00 Name: MAXIMO GASTELUM [facility] : 1985 Age/S: 35 / M [address] Unit #: [id number] Loc: [place] [address] Phys: Tristan Ibarra MD Acct: [id number] Dis Date: Status: ADM IN PHONE #: [phone] Exam Date: 03/03/2020 0651 FAX #: [phone] Reason: h/o hep c EXAMS: CPT CODE: [id number] ABDOMEN LTD 18809 HISTORY: Hepatitis C. COMPARISON: CT scan from [...] MD; Karo Steele MD Technologist: Nadja Evans [facility] Trnscb Date/Time: 0 (728) t.SDR.4 Orig Print D/T: S: 03/03/2020 (0732) Probe: PAGE 1 Signed Report COVID 19 INHOUSE [id number] 18:57:00* Test Item Value Reference Range Interpretation Comments COVID 19 INHOUSE AG (test code = [id number]) NEGATIVE - CT ABD PELVIS W/O [id number] 17:46:00 Name: MAXIMO GASTELUM [facility] : 1985 Age/S: 35 / M [address] Unit #: [id number] Loc: [place] [address] Phys: Aranza Reyes TRAFFIC INVESTIGATOR Acct: [id number] Dis Date: Status: ADM IN PHONE #: [phone] Exam Date: 03/02/2020 172 FAX #: [phone] Reason: abd pain EXAMS: CPT CODE: [id number] CT ABD PELVIS W/O CONT 10170 EXAM: CT of the abdomen and pelvis [...] w small left pleural effusion. Location code: [facility] at 3291 Reported and signed by: Yosvany Ureña M.D. PAGE 1 Signed Report (CONTINUED) Name: MAXIMO GASTELUM [facility] : 1985 Age/S: 35 / M [address] [facility] Unit #: [id number] Loc: [place] [address] Phys: Aranza eRyes NP Acct: [id number] Dis Date: Status: ADM IN PHONE #: [phone] Exam Date: 03/02/2020 172 FAX #: [phone] Reason: abd pain EXAMS: CPT CODE: [id number] CT ABD PELVIS W/O CONT 89638 < Continued> CC: Karo Steele MD; Aranza Reyes NP Technologist:Karis Hua RT(R); MAXIMO Olguin CTDI: DLP: Trnscb Date/Time: 03/02/2020 (1745) t.GRW Orig Print D/T: S: 03/02/2020 (1748) PAGE 2 Signed Report BASIC METABOLIC [id number] 05:59:00* Test Item Value Reference Range Interpretation [...] CA) 7.5 mg/dL 8.5-10.1 L BASIC METABOLIC [id number] 05:28:00* Test Item Value Reference Range Interpretation [...] code = CA) mg/dL 8.5-10.1 BASIC METABOLIC [id number] 06:11:00* Test Item Value Reference Range Interpretation [...] CA) 7.5 mg/dL 8.5-10.1 L BASIC METABOLIC [id number] 05:59:00* Test Item Value Reference Range Interpretation [...] code = CA) mg/dL 8.5-10.1 CBC W/AUTO [id number] 05:38:00* Test Item Value Reference Range Interpretation [...] = MDIFF) NO - INJ NEPH NEW [id number] 12:56:00 Name: GASTELUMMAXIMO [facility] : 1985 Age/S: 35 / M [address] [facility] Unit #: [id number] Loc: [place] [address] Phys: Karo Steele MD Acct: [id number] Dis Date: Status: ADM IN PHONE #: [phone] Exam Date: 02/29/2020 1137 FAX #: [phone] Reason: / EXAMS: CPT CODE: [id number] INJ NEPH NEW ACCESS 94439 Fluoro Time: 183 DAP (Gy m2): 12.29 Air Kerma (mGy): 42 REASON FOR EXAM:Hydronephrosis of solitary left kidney Location: [facility] PROCEDURE: Percutaneous placement of left [...] was then dilated to accept a 10 Indonesian percutaneous nephrostomy tube. The tube was sutured to the subcutaneous tissue and connected to a drainage bag MEDICATIONS: None COMPLICATIONS: None Blood loss: Less than 5 mL Fluoroscopic time: 183 seconds Radiation dose: 42 mGy IMPRESSION: Technically successful placement of a 10 Indonesian left percutaneous nephrostomy tube. Obstruction of the left ureter in the middle third segment. Moderate hydronephrosis and hydroureter at 1256 Reported and signed by: Cosme Rivas M.D. CC: Karo Steele MD chnologist: JENNA ZHANG [employer] INSTRUCTIONAL DESIGNER Trnscb Date/T senthil: 02/29/2020 (1256) t.LENAR.VTL Orig Print D/T: S: 02/28 (1300) PAGE 1 Signed Report - [facility] NEPH [id number] 12:56:00 Name: NIRAVMAXIMO [facility] : 1985 Age/S: 35 / M [address] [facility] Unit #: [id number] Loc: [place] [address] Phys: Karo Steele MD Acct: [id number] Dis Date: Status: ADM IN PHONE #: [phone] Exam Date: 02/29/2020 1135 FAX #: [phone] Reason: / EXAMS: CPT CODE: [id number] [facility] NEPH CATH 91536 Fluoro Time: 183 DAP (Gy m2): 12.29 Air Kerma (mGy): 42 REASON FOR EXAM:Hydronephrosis of solitary left kidney Location: [facility] PROCEDURE: Percutaneous placement of left [...] was then dilated to accept a 10 Indonesian percutaneous nephrostomy tube. The tube was sutured to the subcu taneous tissue and connected to a drainage bag MEDICATIONS: None COMPLICATIONS: None Blood loss: Less than 5 mL Fluorosc opic time: 183 seconds Radiation dose: 42 mGy IMPRESSION: Technically successful placement of a 10 Indonesian left percutaneous nephro stomy tube. Obstruction of the left ureter in the middle third segment. Moderate hydronephrosis and hydroureter at 1256 Reported and signed by: Cosme Rivas M.D. CC: Karo Steele MD Te chnologist: JENNA ZHANG [employer] INSTRUCTIONAL DESIGNER Trnscb Date/T senthil: 02/29/2020 (8889) t.SDR.VTL Orig Print D/T: S: 02/28 (1300) PAGE 1 Signed Report - XR ABDOMEN AP 1 [id number] 12:55:00 FAX: Karo Plata MD [place]: St: ADM Name: MAXIMO MAHER [facility] : [birth year] Age/S: 35/M [address] Unit #: [id number] Loc: [address] [place] [address] Phys: Cosme Rivas MD Acct: [id number] Dis Date: Status: ADM IN PHONE #: [phone] Exam Date: 02/29/2020 1252 FAX #: [phone] Reason: S/P LEFT NEPHROSTOMY TUBE. EXAMS: CPT CODE: [id number] XR ABDOMEN AP 1 V 49954 HISTORY: S/P LEFT NEPHROSTOMY TUBE. TECHNIQUE: AP abdomen x-ray COMPARISON: Abdominal radiograph earlier today at 7:23 AM FINDINGS/ IMPRESSION: Interval placement of left-sided percutaneous nephrostomy tube. The tube is appropriately positioned with no kinks or breaks. Rem aining findings are unchanged. Location: [facility] at 1256 Reported and signed by: Herbert Johnson MD CC: Karo Steele MD Technologist: Andie elias, RT(R) Trnscrd Date/Time/By: 02/29/2020 (1796 ) : By: [email or web address] Orig Print D/T: S: 02/29/2020 (9724) PAGE 1 Signed Report URINALYSIS [id number] 12:13:00* Test Item Value Reference Range Interpretation [...] PLACED LEFT NEPHROSTOMY TUBEUrine Source? Catheter URINALYSIS [id number] 12:08:00* Test Item Value Reference Range Interpretation [...] Source? Catheter - XR ABDOMEN AP 1 [id number] 09:28:00 FAX: Karo Plata MD [place]: B St: ADM Name: MAXIMO MAHER Victor[facility] : [birth year] Age/S: 35/M [address] [facility] Unit #: [id number] Loc: [place]ash[address] [place] [address] Phys: Karo Steele MD Acct: [id number] Dis Date: Status: ADM IN PHONE #: [phone] Exam Date: 02/29/2020724 FAX #: [phone] Reason: r/o obstruction EXAMS: CPT CODE: [id number] XR ABDOMEN AP 1 V 32495 HISTORY: r/o obstruction TECHNIQUE: AP abdomen x-ray [...] findings to suggest bowel obstruction. Loc ation: [facility] at 0928 Reported and signed by: Herbert Johnson MD CC: Karo Steele MD Technologist: ELLA LAURENT JR RT(R) Trnscrd Date/Time/By: 02/29/20 20 (927) : By: [email or web address] Orig Print D/T: S: 02/29/2020 (930) PAGE 1 Signed Report - XR CHEST 1 [id number] 09:26:00 FAX: Karo Plata MD [place]: St: ADM Name: MAXIMO MAHER [facility] : [birth year] Age/S: 35/M [address] [facility] Unit #: [id number] Loc: [address] [place] [address] Phys: Comse Rivas MD Acct: [id number] Dis Date: Status: ADM IN PHONE #: [phone] Exam Date: 02/29/202023 FAX #: [phone] Reason: S/P RIGHT IJ CENTRAL LINE EXAMS: CPT CODE: [id number] XR CHEST 1 V 22165 REASON FOR EXAM: S/P RIGHT IJ CENTRAL LINE Exam Order Date: 02/29/2020 10:40 AM Ordering Marci: Cosme Rivas MD PROCEDURE: - XR CHEST [...] the left lung base is unchanged. Location: [facility] at 0926 Reported and signed by: Herbert Johnson MD CC: Karo Steele MD Technologist: ELLA LAURENT JR RT(R) Trnscrd Date/Time/By: 02/29/2020 (925) : By: ariadne [email or web address] PAGE 1 Signed Report PROTHROMBIN [id number] 09:25:00* Test Item Value Reference Range Interpretation [...] (2.5-3.5) IS PATIENT ON ANTICOAGULANTS? NTHROMBOPLASTIN TIME [id number] 09:25:00* Test Item Value Reference Range Interpretation Comments THROMBOPLASTIN TIME PARTIAL (test code = PTT) 30.3 seconds 23.0-37. 0 N IS PATIENT ON ANTICOAGULANTS? NTHYROID STIMULATING [id number] 07:10:00* Test Item Value Reference Range Interpretation Comments THYROID STIMULATING HORMONE (test code = TSH) 3.650 uIU/mL 0.36-3.7 4 N TSH REFERENCE RANGES: EUTHYROID: 0.35 - 4.3 mIU/mL HYPO : > 5.5 mIU/mL HYPER : < 0.35 mIU/mL - XR CHEST 1 [id number] 21:14:00 FAX: Karo Plata MD [place]: St: ADM Name: MAXIMO MAHER [facility] : [birth year] Age/S: 35/M [address] [facility] Unit #: [id number] Loc: [address] [place] [address] Phys: Karo Steele MD Acct: [id number] Dis Date: Status: ADM IN PHONE #: [phone] Exam Date: 02/28/20202012 FAX #: [phone] Reason: cp EXAMS: CPT CODE: [id number] XR CHEST 1 V 60730 EXAM: Chest x-ray, one view; INFORMATION: Chest [...] gned by Marci Ureña on 02/28/2020 at 2113 Reported and signed by: Yosvany Ureña M.D. CC: Karo Steele MD Technologist: LOC ORELLANA RT; Vipul Bronson RT(R Trnscrd Jonathon e/Time/By: 02/28/2020 (2113) : By: SanjuanaGRW Orig Print D/T: S: 2019 (2116) PAGE 1 Signed Report - RETRO [id number] 14:21:00 Name: MAXIMO GASTELUM [facility] : 1985 Age/S: 35 / M [address] [facility] Unit #: [id number] Loc: [place] [address] Phys: Augusto Steele MD Acct: [id number] Di s Date: Status: ADM IN PHONE #: [phone] Exam Date: 02/28/2020 5518 FAX #: Reason: renal failure EXAMS: CPT CODE: [id number] RETRO LTD 33695 EXAM: Ultrasound retroper itoneum, limited; INFORMATION: Renal [...] 3 cm left renal cyst. Location code: [facility] at 1421 Reported and signed by: Yosvany Ureña M.D. CC: Karo Steele MD Technol ogist: SOCO JAEGER,SORAYA Trnscb Date/Time: 02/28/2020 (1420) t.LENAR.GRW Orig Print D/T: S: 02/28/2020 (6600) Probe: PAGE 1 Signed Re port - SP FLUORO GUID CTRL ACC [id number] 12:53:00 Name: MAXIMO GASTELUM [facility] : 1985 Age/S: 35 / M [address] Unit #: [id number] Loc: [place] [address] Phys: Karo Steele MD Acct: [id number] Dis Date: Status: ADM IN PHONE #: [phone] Exam Date: 02/28/2020 1037 FAX #: [phone] Reason: / EXAMS: CPT CODE: [id number] SP FLUORO GUID CTRL ACC DEV 26531 Fluoro Time: 4 DAP (Gy m2): 0.35 Air Kerma (mGy): 1 REASON FOR EXAM: Nonfunctioning central line Exam Order Date: 02/28/2020 10:31 AM Attending Marci: Karo Steele MD Location:[facility] PROCEDURE: Fluoroscopic guided right IJ [...] central line is ready for use. at 5815 Reported and signed by: Cosme Rivas M.D. CC: Karo Steele MD Technologist: JENNA ZHANG [employer] INSTRUCTIONAL DESIGNER Trnscb Date/Time: 02/28/2020 (5299) SanjuanaVTAlma Orig Print D/T: S: 02/28/2020 (6457) PAGE 1 Signed Report BASIC METABOLIC [id number] 07:46:00* Test Item Value Reference Range Interpretation [...] CA) 8.1 mg/dL 8.5-10.1 L BASIC METABOLIC [id number] 07:18:00* Test Item Value Reference Range Interpretation [...] code = CA) mg/dL 8.5-10.1 BASIC METABOLIC [id number] 07:16:00* Test Item Value Reference Range Interpretation [...] CA) 8.3 mg/dL 8.5-10.1 L BASIC METABOLIC [id number] 07:56:00* Test Item Value Reference Range Interpretation [...] CA) 8.7 mg/dL 8.5-10.1 N BASIC METABOLIC [id number] 07:52:00* Test Item Value Reference Range Interpretation [...] mg/dL 8.5-10.1 N - XR CHEST 1 [id number] 19:44:00 FAX: Karo Plata MD [place]: B St: ADM FAX: Homero Elizabeth MD [phone] Name: MAXIMO GASTELUM [facility] : 1985 Age/S: 35/M [address] Unit #: [id number] Loc: [place] [place] [address] Phys: Homero Petty MD Acct: [id number] Dis Date: Status: ADM IN PHONE #: [phone] Exam Date: 02/25/20201934 FAX #: [phone] Reason: evaluate CVC placement EXAMS: CPT CODE: [id number] XR CHEST 1 V 86845 HISTORY: Central line placement. COMPARISON: February 21, 2020. Location: [facility]. Right jugular central line with the tip projected over the SVC without pneumothorax. No acute infiltrates, effusion or congestion. Cardiac and the mediastinal silhouette are normal. IMPRESSION: Right jugular central line with the tip projected over the SVC. No pneumothorax. at 194 Reported and signed by: Ivan Luu M.D. CC: Karo Steele MD; Homero Petty MD Technologist: ANAHI GONZALEZ RT(R); ... Trnscrd Date/Time/By: 02/25/2020 (1943) : By: [email or web address] Orig Print D/T: S: 02/25/2020 (1946) PAGE 1 Signed Report FE W/TOTAL IRON BINDING CAP.2020-02-24 11:23:00* Test Item Value Reference Range Interpretation Comments SERUM IRON (test code = IRON) 57 ug/dL 50-175 N TOTAL IRON BINDING CAPACITY (test code = TIBC) 196 mcg/dL 250-450 L IRON SATURATION (test code = FESAT) 29.08 % 13-45 N [V.LAB. 02/24/20156]VITAMIN [id number] 11:23:00* Test Item Value Reference Range Interpretation Comments VITAMIN B12 (test code = VITB12) 411 pg/mL 193-986 N [V.LAB. 02/24/20156]FOLIC [id number] 11:23:00* Test Item Value Reference Range Interpretation Comments FOLIC ACID (test code = FOL) 9.5 ng/mL 3.10-17.50 N [V.LAB. 02/24/20156][id number] 11:23:00* Test Item Value Reference Range Interpretation Comments FERRITIN (test code = JASMINA) 417 ng/mL 8-388 H [V.LAB. 02/24/20156]BASIC METABOLIC [id number] 10:55:00* Test Item Value Reference Range Interpretation [...] CA) 9.0 mg/dL 8.5-10.1 N BASIC METABOLIC [id number] 10:51:00* Test Item Value Reference Range Interpretation [...] CA) 9.0 mg/dL 8.5-10.1 N CBC W/AUTO [id number] 10:29:00* Test Item Value Reference Range Interpretation [...] NRBC#) 0.00 K/mm3 0.0-0.1 N BASIC METABOLIC [id number] 07:36:00* Test Item Value Reference Range Interpretation [...] CA) 8.7 mg/dL 8.5-10.1 N CBC W/AUTO GSKE2046-93-79 07:23:00* Test Item Value Reference Range Interpretation [...] = NRBC#) 0.00 K/mm3 0.0-0.1 N LACTIC GORH8670-66-74 21:17:00* Test Item Value Reference Range Interpretation Comments LACTIC ACID (test code = LACT) 1.2 mmol/L 0.4-1.9 N PT IS IN ORANGE ZONE V.LAB.CS1 02/22/20 1305CBC W/AUTO NFIX8910-44-85 21:01:00* Test Item Value Reference Range Interpretation [...] IN ORANGE ZONE V.LAB.CS1 02/22/20 1304BASIC METABOLIC DXLUA6903-63-93 20:35:00* Test Item Value Reference Range Interpretation [...] 8.5-10.1 N PT IS IN ORANGE ZONE V.LAB.[facility] 02/22/20 1304BASIC METABOLIC RAQSP6635-69-00 20:27:00* Test Item Value Reference Range Interpretation [...] mg/dL 8.5-10.1 PT IS IN ORANGE ZONE V.LAB.[facility] 02/22/20 1304- CT ABD PELVIS W/O RYCM0214-09-28 09:41:00 Name: MAXIMO GASTELUM [facility] : 1985 Age/S: 35 / M [address] Unit #: [id number] Loc: [place] [address] Phys: Karo Steele MD Acct: [id number] Dis Date: Status: ADM IN PHONE #: [phone] Exam Date: 02/22/2020913 FAX #: [phone] Reason: ABD PAIN FEVER EXAMS: CPT CODE: [id number] CT ABD PELVIS W/O CONT 49416 EXAM: CT of the abdomen and pelvis [...] lung probably represent atelectatic changes. Location code: [facility] at 0941 Reported and signed by: Yosvany Ureña M.D. PAGE 1 Signed Report (CONTINUED) [facility] 1985 Age/S: 35 / M [address] [facility] Unit #: [id number] Loc: [place] [address] Phys: Karo Steele MD Acct: [id number] Dis Date: Status: ADM IN PHONE #: [phone] Exam Date: 02/22/2020913 FAX #: [phone] Reason: ABD PAIN FEVER EXAMS: CPT CODE: [id number] ABD PELVIS W/O CONT 32918 <Continued> CC: Karo Steele MD Technologist:Denys Olvera RT(R),(MR),(CT); CTDI: DLP: Trnscb Date/Time: 02/22/2020 (940) t.LENAR.GRW Orig Print D/T: S: 02/22/2020 (0944) PAGE 2 Signed Report URINALYSIS [id number] 19:17:00* Test Item Value Reference Range Interpretation [...] per HPF NONE Urine Source? Clean CatchURINALYSIS AAHERDJE2128-35-04 19:17:00* Test Item Value Reference Range Interpretation [...] #/LPF FEW Urine Source? Clean CatchCBC W/O URRV6741-40-18 19:16:00* Test Item Value Reference Range Interpretation [...] MPV) 10.5 fL 6.7-11.0 N BASIC METABOLIC [id number] 19:15:00* Test Item Value Reference Range Interpretation [...] CA) 9.4 mg/dL 8.5-10.1 N HEPATIC FUNCTION GXTFA6310-66-18 19:15:00* Test Item Value Reference Range Interpretation [...] reference range due to change in reagent. HSRQRH1672-08-50 19:15:00* Test Item Value Reference Range Interpretation Comments LIPASE (test code = LIP) 75 U/L 73.0-393.0 N LACTIC DEHYDROGENASE(LDH)2020-02-21 19:07:00* Test Item Value Reference Range Interpretation Comments LACTIC DEHYDROGENASE(LDH) (test code = LDH) 162 IUnit/L 84-246 N YNMQHKDH-X1337-28-20 19:07:00* Test Item Value Reference Range Interpretation Comments TROPONIN-I (test code = TROPI) <0.015 ng/mL 0-0.045 N DBVDBDMJ3595-63-18 19:07:00* Test Item Value Reference Range Interpretation Comments FERRITIN (test code = JASMINA) 387 ng/mL 8-388 N BASIC METABOLIC JIBOY6266-21-03 19:06:00* Test Item Value Reference Range Interpretation [...] code = CA) mg/dL 8.5-10.1 HEPATIC FUNCTION EVMJT0818-02-39 19:06:00* Test Item Value Reference Range Interpretation [...] TOTAL (test code = ALKP) IUnit/L 45-117 IKTMJK4056-72-47 19:06:00* Test Item Value Reference Range Interpretation Comments LIPASE (test code = LIP) U/L 73.0-393.0 C REACTIVE GVZLUYO5600-12-91 19:06:00* Test Item Value Reference Range Interpretation Comments C REACTIVE PROTEIN (test code = CRP) 9.93 mg/dL 0-0.3 H COVID 19 INHOUSE [id number] 19:03:00* Test Item Value Reference Range Interpretation Comments COVID 19 INHOUSE AG (test code = [id number]) NEGATIVE - XR CHEST 1 [id number] 15:45:00 FAX: Dixie Mcmanus [phone] [place]: B St: REG Name: MAXIMO MAHER [facility] : [birth year] Age/S: 35/M [address] [facility] Unit #: [id number] Loc: [place] [address] Phys: Dixie Kennedy MD Acct: [id number] Dis Date: Status: REG ER PHONE #: [phone] Exam Date: 02/21/2020 1540 FAX #: [phone] Reason: SHORTNESS OF BREATH EXAMS: CPT CODE: [id number] XR CHEST 1 V 16880 REASON FOR EXAM: SHORTNESS OF BREATH EXAM ORDER DATE: 02/21/2020 3:08 PM Ordering: Dixie Kennedy MD Attending:Dixie Kennedy MD Location:[facility] PROCEDURE: - XR CHEST 1 V COMPARISON: FINDINGS: Portable AP frontal view of the chest obtained at 3:26 PM shows patchy airspace opacity of the bases. There is no evidence of effusion. The heart size is within normal limits. Pulmonary vasculatures are unre markable. IMPRESSION: Patchy atelectasis of the bases at 1548 Reported and signed by: Cosme Rivas M.D. CC: Abner Kennedy MD Technologist: RT Jabier(Malathi) Trnscrd Date/Time/By: 02/21/2020 (9923) : By: SanjuanaVTL Orig Print D/T: S: 02/21/2020 (4994) PAGE 1 Signed Report Blood culture, aerobic & twhepxfvi7421-30-26 01:03:15* Test Item Value Reference Range Interpretation Comments Blood culture isolate (test code = 600-7) No growth after 5 days of incubation. Specimen InformationSpecimen Source: BloodSpecimen Site: [facility] MethodistBasic metabolic pnbwg7127-61-23 06:41:39* Test Item Value Reference Range Interpretation Comments Sodium (test code = 2951-2) 137 135- 150 mEq/L Potassium (test code = 2823-3) 4.7 3.5- 5.0 mEq/L Chloride (test code = 2075-0) 107 98- 112 mEq/L CO2 (test code = 2027-9) 19 mmol/L 24-31 L Anion gap (test code = 39038-0) 11@ANIO 7- 15 mEq/L BUN (test code = 3094-0) 22 mg/dL 7-18 H Creatinine (test code = 2160-0) 1.70 mg/dL 0.7-1.2 H Glucose (test code = 2345-7) 89 mg/dL 65-100 Calcium (test code = 92440-4) 8.8 mg/dL 8.3-10.2 Lab Interpretation (test code = 77618-6) Abnormal [place] MethodistEstimated [id number] 06:41:38* Test Item Value Reference Range Interpretation Comments Estimated GFR (test code = 5488) 51 mL/min/1.73 m2 A Catergory Units InterpretationG1 >=90 Normal or highG2 60-89 Mildly jbjfdjmspM1w 45-59 Mildly to moderately ydzqubqwnP8z 30-44 Moderately to severely decreasedG4 15-29 Severely decreasedG5 <15 Kidney failureThe eGFR was calculated using the Chronic Kidney Disease Epidemiology Collaboration (CKD-EPI) equation. Interpretation is based on recommendations of the National Kidney Foundation-Kidney Disease Outcomes Quality Initiative (NKF-KDOQI) published in 2014. Lab Interpretation (test code = 27567-5) Abnormal [place] MethodistCBC with platelet and hmojvhpvvmyf8805-32-07 06:23:03* Test Item Value Reference Range Interpretation Comments WBC (test code = 10630-3) 5.8 4.2- 11.0 k/uL RBC (test code = 94801-6) 3.66 m/uL 4.04-5.86 L HGB (test code = 718-7) 9.7 g/dL 13-17.3 L HCT (test code = 4544-3) 32.2 % 34-45 L MCV (test code = 787-2) 88.0 fL 80-98 MCH (test code = 785-6) 26.5 pg 27-34 L MCHC (test code = 786-4) 30.1 g/dL 31.5-36.5 L RDW - SD (test code = 21454-6) 60.1 fL 37-51 H MPV (test code = 76906-4) 10.1 fL 7.4-10.4 Platelet count (test code = 45320-7) 384 150- 400 k/uL Nucleated RBC (test code = 59997-5) 0.00 /100 WBC Neutrophils (test code = 51614-6) 50.8 % 36-66 Lymphocytes (test code = 81119-8) 33.9 % 24-44 Monocytes (test code = 73552-8) 9.3 % 0-6 H Eosinophils (test code = 50541-0) 4.7 % 0-6 Basophils (test code = 60581-8) 1.0 % 0-1.2 Immature granulocytes (test code = 20205-8) 0.3 % 0-1 Lab Interpretation (test code = 91200-7) Abnormal Bruno [place] 12 cifj6198-31-58 18:43:56* Test Item Value Reference Range Interpretation Comments Ventricular rate (test code = 253) 115 Atrial rate (test code = 255) 115 DC interval (test code = 266) 136 QRSD [...] T wave abnormality in Inferior leads- Bruno CastellanosEavbpkqihGvzqqvnv4966-88-38 05:36:34* Test Item Value Reference Range Interpretation Comments Troponin (test code = 33698-9) <0.006 0-0.04 In patients suspected of having [...] OR decreased by less than 0.020 ng/mL [place] MethodistLactic acid level, SEPSIS - Now and repeat 2x every 3 hours 2020-01-11 05:08:38* Test Item Value Reference Range Interpretation Comments Lactic acid (test code = 65180-1) 1.3 mmol/L 0.5-2.2 Carr MethodistMRI Foot Wo Contrast Iiqig7683-56-64 01:53:47Hm Interface, Radiology Results 01/11/2020 1:56 AM CDTExamination: MRI FOOT WO [...] 1:53 AM and acknowledged understanding of the findings.[facility]-7LL9319 MK9Omwwdyw MethodistCT Abdomen Pelvis Wo Gjnwpqij5343-00-43 00:36:37Addendum by Brandon Bhatt MD on 01/11/2020 1:55 AM ADDENDUM #1 Addendum: Bilateral large sacral decubitus ulcers are noted extending to the bilateral ischial tuberosities. There is no definite cortical bone destruction of the ischial tuberosities to suggest osteomyelitis. No definite fluid c ollection is seen. FRANCISCOOMA JEFFERSON was informed of these findings on 01/11/2020 1:55 AM and acknowledged understanding of the findings. Interface, Radiology Results Incoming - 01/11/2020 12:39 AM CDTExamination: CT ABDOMEN [...] show minimal right base subsegmental atelectasis.IMPRESSION:1. Left internet network specialist al ureteral stent with mild to moderate [...] is seen to suggest abscess at this time.[facility]-1DW5939S72Ejdyalk MethodistUrinalysis screen and microscopy, with reflex to kgbtkof0418-34-39 23:03:32* Test Item Value Reference Range Interpretation Comments Specimen site (test code = 0919285) Clean catch Color, UA (test code = 5778-6) Sasha Appearance, UA (test code = 5767-9) Turbid Specific gravity, UA (test code = 5811-5) 1.018 1.001-1.035 pH, UA (test code = 5803-2) 6.0 5.0-8.5 Protein, UA (test code = 68241-3) 3+ Negative A Glucose, UA (test code = 01543-9) Negative Negative Ketones, UA (test code = 2514-8) Negative Negative Bilirubin, UA (test code = 5770-3) Negative Negative Blood, UA (test code = 5794-3) Small Negative A Nitrite, UA (test code = 5802-4) Negative Negative Urobilinogen, UA (test code = 91918-4) Negative <2.0 Leukocyte esterase, UA (test code = 5799-2) Large Negative A WBC, UA (test code = 5821-4) >200 0- 1 /HPF H RBC, UA (test code = 64398-1) 19 0- 5 /HPF H Bacteria, UA (test code = 71886-9) Few None seen Yeast, UA (test code = 80987-6) None seen Yeast with pseudohyphae, UA (test code = 19570-6) None seen Lab Interpretation (test code = 96372-7) Abnormal [facility] ARIK7723-67-50 23:02:47Francisco Jefferson MD 01/11/2020 8:23 PMCritical CarePerformed by: Francisco Jefferson, MDAuthorized by: rFancisco Jefferson MD Critical care provider statement: Critical [...] for this patient from another provider.: no Bruno MethodadolphB natriuretic ookymgi0151-39-52 22:58:48* Test Item Value Reference Range Interpretation Comments BNP (test code = 23290-9) 11 pg/mL 0-100 Carr MethodadolphComprehensive metabolic ysuyz6981-95-76 22:48:20* Test Item Value Reference Range Interpretation Comments Sodium (test code = 2951-2) 134 135- 150 mEq/L L Potassium (test code = 2823-3) 4.0 3.5- 5.0 mEq/L Chloride (test code = 5-0) 97 98- 112 mEq/L L CO2 (test code = 2027-9) 18 mmol/L 24-31 L Anion gap (test code = 53165-0) 19@ANIO 7- 15 mEq/L H BUN (test code = 3094-0) 25 mg/dL 7-18 H Creatinine (test code = 2160-0) 2.20 mg/dL 0.7-1.2 H Glucose (test code = 2345-7) 106 mg/dL 65-100 H Calcium (test code = 23896-8) 9.7 mg/dL 8.3-10.2 Protein (test code = [...] mg/dL 0.2-1.2 Lab Interpretation (test code = 98597-1) Abnormal [place] MethodistCreatine kinase, total (CPK)2020-01-10 22:48:19* Test Item Value Reference Range Interpretation Comments Creatine kinase (test code = 2157-6) 122 U/L 39-308 [place] MethodistLipase rlgoo1270-94-31 22:48:19* Test Item Value Reference Range Interpretation Comments Lipase (test code = 3040-3) 42 U/L 13-60 [place] MethodistBeta lwbbphoosaksxbt9306-35-07 22:46:45* Test Item Value Reference Range Interpretation Comments Beta hydroxybutyrate (test code = 6873-4) 0.05 mmol/L 0.02-0.27 [place] MethodistPartial thromboplastin time, rzdxtlbgp4378-06-64 22:41:37* Test Item Value Reference Range Interpretation Comments PTT (test code = 3173-2) 32.8 23.0- 36.0 sec P TT therapeutic range for unfractionated heparin is61.0-112.0 seconds which corresponds to Anti-Xa0.3-0.7 U/ml. [facility] Medical CenteristProthrombin time with TQI0784-07-07 22:40:45* Test Item Value Reference Range Interpretation Comments Prothrombin time (test code = 5902-2) 13.3 11.5- 14.5 sec INR (test code = 79728-6) 1.01 Fo r patients on anticoagulant therapy, reference ranges below:Indication: INR ValueTreatment of Venous Thrombosis, 2.0-3.0pulmonary emboli, or prophylaxisof a venous thrombosis, or systemic emboli.High dose, high risk patients 3.0-4.5with mechanical valves.NOTE: INR values over 3.0 are sometimes associated withgastrointestinal hemorrhage, especially values over 4.0. [facility] CenterPOC zpyvxii0021-61-26 22:01:09* Test Item Value Reference Range Interpretation Comments POC glucose (test code = 03136-6) 100 mg/dL 65-100 [employer]rette Machine Operator Name: Magno Frost ID: [id number] [place] MethodistManual lmduiqsjkxzs1727-94-58 06:40:40* Test Item Value Reference Range Interpretation Comments Manual differential (test code = 03405-3) PERFORMED Neutrophils (test code = 60790-6) 38.0 % 36-66 Lymphocytes (test code = 88632-8) 47.0 % 24-44 H Monocytes (test code = 80323-0) 7.0 % 0-6 H Eosinophils (test code = 56435-5) 7.0 % 0-6 H Basophils (test code = 37587-4) 1.0 % 0-1.2 Metamyelocytes (test code = 740-1) 0 % 0-1 Promyelocytes (test code = 783-1) 0 % 0-1 Platelet slide review (test code = 17409-0) [place] adequate Anisocytosis (test code = 702-1) 1+ Ovalocytes (test code = 774-0) 1+ [place] cells (test code = 7790-9) 1+ Lab Interpretation (test code = 40099-2) Abnormal [place] MethodistMagnesium rrwlw0495-52-76 11:20:46* Test Item Value Reference Range Interpretation Comments Magnesium (test code = 09054-6) 1.10 mg/dL 1.6-2.6 L Lab Interpretation (test code = 29514-7) Abnormal [place] MethodistPhosphorus jzjlx7485-07-98 11:20:46* Test Item Value Reference Range Interpretation Comments Phosphorus (test code = 2777-1) 4.9 mg/dL 2.4-4.5 H Lab Interpretation (test code = 06597-5) Abnormal [place] MethodistOccult blood, nqwtj7265-08-70 02:18:10* Test Item Value Reference Range Interpretation Comments Occult blood, stool (test code = 2334-1) Negative for occult blood. Specimen InformationSpecimen Source: StoolSpecimen Site: Nonpreserved [place] MethodistCreatinine level, urine, jehxmt0769-68-88 23:19:38* Test Item Value Reference Range Interpretation Comments Creatinine, urine, random (test code = 65043-9) 22 mg/dL [place] MethodistProtein, urine, dtusav8963-22-90 23:19:38* Test Item Value Reference Range Interpretation Comments Protein, urine random (test code = 2888-6) 60 mg/dL [place] MethodistPotassium, urine, thlyzo1872-79-43 23:13:46* Test Item Value Reference Range Interpretation Comments Potassium, urine, random (test code = 2828-2) 12 mEq/L Bruno MethodistSodium level, urine, eomobs4663-25-85 23:13:46* Test Item Value Reference Range Interpretation Comments Sodium, urine, random (test code = 65756-3) 79 mEQ/L Bruno MethodistHemoglobin & lvxmuwrebr7351-53-79 22:15:56* Test Item Value Reference Range Interpretation Comments HGB (test code = 718-7) 8.2 g/dL 13-17.3 L HCT (test code = 4544-3) 26.8 % 34-45 L Lab Interpretation (test code = 36138-0) Abnormal Carr MethodistMRI Ankle Wo Contrast Qnuvr2171-02-02 20:37:14Hm Interface, Radiology Results 12/22/2019 8:40 PM [...] would be more specific.2 .Other findings as above1RM1RAD_PS01[facility] MethodistMRI Lower Extremity Wo Contrast Gdmra0823-27-14 20:27:22Hm Interface, Radiology Results 12/22/2019 8:30 PM [...] Evaluate limited by the intramedullary nail and motion1RM1RAD_PS01[place] MethodistPrepare RBC, 1 Wissv2755-58-81 13:00:00* Test Item Value Reference Range Interpretation Comments Product name (test code = 25) Red Blood Cells -1, Leukored Unit number (test code = 2558774) [id number] Product code (test code = 3092) [id number] Dispense status (test code = 24) Transfused Blood expiration date (test code = 302) [id number] Blood type code (test code = 308) 6200 Blood type (test code = 1314) A POSITIVE Compatibility (test code = 6400) Compatible Bruno DonohueVancomycin level, nivozz0039-52-76 07:41:48* Test Item Value Reference Range Interpretation Comments Vancomycin, random (test code = 14364-2) 19.0 ug/mL Therapeutic Ranges: Peak 30.0 - 40.0 ug/mL Trough 10.0 - 20.0 ug/mL Bruno DonohueUS Sttbk2013-81-41 17:39:22Hm Interface, Radiology Results 12/21/2019 5:42 PM [...] which is decompressed.8. Calculi: No calculi9. Other Findings:NoneSJ-7EK9924J65Wmgvsld MethodistXR Ankle 3+ Vw Bntvh5138-68-06 08:38:49Hm Interface, Radiology Results 12/21/2019 8:41 AM [...] ankle. There are no findings to indicate osteomyelitis.[facility]-9VS60528P3Mnbtggkm and approved by cmo & president/fellow: Harvey Mcallister M.D.I, Jair Thibodeaux, personally reviewed the images and resident's/fellow's findings and agree with the final report.Carr MethodistXR Tibia Fibula 2 Vw Hulck9725-29-18 08:22:50Hm Interface, Radiology Results 12/21/2019 8:25 AM [...] or dislocation of the right tibia or fibula.PI-9SI5720V6TChzzibr MethodistType and screen 2019-12-20 20:32:00* Test Item Value Reference Range Interpretation Comments ABO grouping (test code = 883-9) A Rh type (test code = 35651-2) POS Antibody screen (gel) (test code = 890-4) NEG [place] MethodistSmear kqqzew8656-97-79 19:45:37* Test Item Value Reference Range Interpretation Comments Platelet slide review (test code = 83294-5) [place] adequate Anisocytosis (test code = 702-1) 1+ [place] MethodistHepatic function xvjcx1523-12-32 19:30:52* Test Item Value Reference Range Interpretation Comments Albumin (test code = 1751-7) 2.4 g/dL 3.5-5 L Total bilirubin (test code = 1975-2) 0.3 mg/dL 0.2-1.2 Bilirubin direct (test code = 1968-7) <0.2 0-0.4 Alkaline phosphatase (test code = 6768-6) 82 U/L 0-129 Protein (test code = 2885-2) 8.4 g/dL 6.3-8.3 H ALT (test code = 1742-6) 8 U/L 5-50 AST (test code = 1920-8) 13 U/L 10-50 Lab Interpretation (test code = 58543-9) Abnormal [place] Methodgallup indian medical centerCRITICAL DBHA4667-45-31 18:43:13GeMaximo krueger MD 12/21/2019 2:59 PMCritical CarePerformed by: Maximo [...] of patient's condition and review of old chartsK[place] City MethodistRespiratory pathogen onbgq2034-19-65 11:54:37Respiratory pathogen panelNegative for all pathogens tested:Negative for AdenovirusNegative for Coronavirus YQH0Xoclqpfb for Coronavirus VV10Qfjrnwpu for Coronavirus 229ENegative for Coronavirus GO46Josujcxn for Human MetapneumovirusNegative for Rhinovirus/EnterovirusNegative for Influenza ANegative for Influenza A/H1N egative for Influenza A/I0Zurfukan for Influenza A/H1-2009Negative for Influenza BNegative for [...] the assay . Comment: Specimen InformationSpecimen Source: [facility] drugs of abuse rsssle7305-75-67 04:27:53* Test Item Value Reference Range Interpretation Comments Amphetamine screen, urine (test code = 3349-8) Negative Barbiturate screen, urine (test code = 3377-9) Negative Benzodiazepine screen, urine (test code = 3390-2) Negative Cocaine screen, urine (test code = 3397-7) Negative Methadone metabolite (EDDP), urine (test code = 49790-8) Negative Opiates screen, urine (test code = 3879-4) Negative Oxycodone screen, urine (test code = 73023-7) Negative Phencyclidine screen, urine (test code = [...] is required. Lab Interpretation (test code = 11770-1) Abnormal [place] MethodistXR Chest 1 Ijdywlxt4988-72-95 16:57:45Hm Interface, Radiology Results - 10/16/2019 5:00 PM CDTXR CHEST 1 PORTABLECLINICAL INDICATION: elevated white countCOMPARISON: 08/07/2019.IMPRESSI ON:The lungs are clear of focal consolidation. The cardiomediastinal silhouette demonstrates a normal contour. There is no pleural effusion or gross pneumothora x. There are no acute osseous abnormalities.[facility]-3KV2401A32Fzwmnsk MethodistCT Abdomen Pelvis W Vycuntfo5164-57-31 00:41:03Hm Interface, Radiology Results 10/16/2019 12:44 AM [...] No hydronephrosis.4. Other stable/incidental findings as a jazzmine.[facility]-KW27GRHDRbfslprLongview Regional Medical CenterThyroid stimulating zzpadwn4348-72-77 07:12:11 * Test Item Value Reference Range Interpretation Comments TSH (test code = 3016-3) 3.57 0.55- 4.78 uIU/mL [facility] rprklwn3221-98-84 10:55:08* Test Item Value Reference Range Interpretation Comments Case number (test code = [id number]) [id number] Surgical pathology report (test code = 2255) See link below for PDF Lab Report Result status (test code = 5164750) This is Final Report for [id number] [id number] [facility] CenterHdxzpusikKgfipi4766-71-60 10:42:47Alejo Bedolla CRNA 08/14/2019 10:44 AMAirwayPerformed by: [...] dentition, easy OETT insertion, no resistance met [place] Methodgallup indian medical centerGram ngxug2432-13-31 08:29:09Gram stain resultNo WBC'sOccasional Gram negative rods Comment: Specimen InformationSpecimen Source: UrineSpecimen Site: Clean catch [facility] MethodistEEG (routine)2019-04-19 12:14:32 ROUTINE EEG REPORT Patient [...] full interpretation of these findings. ICD10 Code/Diagnosis: PAIGE Carr MethodistUS Guided Vascular Iynlfz2062-50-66 17:17:29Hm Interface, Radiology Results 04/07/2019 5:20 PM CDTPerforming RadiologistRohiabner Ward MD AssistantsNone Anesthesia TypeLidocaine 1% was used for local anesthetic.Pre Procedure Llyspjozm67-nhmy-ksl male with pneumonia, possible pyelonephritis poor venous [...] sheath was removed; and following dilatation, a 7-Indonesian, 15 cm long triple-lumen central venous catheter [...] Ultrasound and fluoroscopy guided placement of a 7-Indonesian, 15 cm long triple lumen central venous catheter via the right inter nal jugular vein, as detailed above. The catheter tip lies at the right atrium/s uperior vena cava junction and is ready for use.[facility] CITYJ-[id number] [facility] IR Non-Tunneled Central Line Xxyrnkazy5116-34-76 17:17:29Hm Interface, Radiology Results - 04/07/2019 5:20 PM CDTPerforming RadiologistRohiabner Ward MD AssistantsNone Anesthesia TypeLidocaine 1% was used for local anesthetic.Pre Procedure Qrszowebj38-lmtm-znw male with pneumonia, possible pyelonephritis poor venous [...] sheath was removed; and following dilatation, a 7-Indonesian, 15 cm long triple-lumen central venous catheter [...] Ultrasound and fluoroscopy guided placement of a 7-Indonesian, 15 cm long triple lumen central venous catheter via the right inter nal jugular vein, as detailed above. The catheter tip lies at the right atrium/s uperior vena cava junction and is ready for use.[facility] CITYJ-8HN3334V03Fzmwfym [facility] CBC ugskvgkj1341-67-72 05:57:43* Test Item Value Reference Range Interpretation Comments WBC (test code = 49042-7) 10.7 4.2- 11.0 k/uL RBC (test code = 68980-0) 5.24 m/uL 4.04-5.86 HGB (test code = 718-7) 12.1 g/dL 13-17.3 L HCT (test code = 4544-3) 41.7 % 34-45 MCV (test code = 787-2) 79.6 fL 80-98 L MCH (test code = 785-6) 23.1 pg 27-34 L MCHC (test code = 786-4) 29.0 g/dL 31.5-36.5 L RDW - SD (test code = 61539-1) 51.8 fL 37-51 H MPV (test code = 22816-5) 10.3 fL 7.4-10.4 Platelet count (test code = 74590-7) 472 150- 400 k/uL H Nucleated RBC (test code = 21380-1) 0.00 /100 WBC Lab Interpretation (test code = 97851-3) Abnormal Carr MethodistPotassium puioo7007-83-08 16:14:36* Test Item Value Reference Range Interpretation Comments Potassium (test code = 2823-3) 4.6 3.5- 5.0 mEq/L Carr MethodistVancomycin level, mdlpux3796-89-81 10:51:44* Test Item Value Reference Range Interpretation Comments Vancomycin, trough (test code = 90302-2) 21.6 ug/mL 10-20 HH Therapeutic Ranges: Peak 30.0 - 40.0 ug/mL Trough 10.0 - 20.0 ug/mLResults called to and read back by HORACE TOBIN RN/ICU 04/04/2019 10:51 JLFA. Lab Interpretation (test code = 26250-7) Abnormal Carr MethodistCT Angiogram Pe Bjetc6981-08-97 06:55:18Hm Interface, Radiology Results 04/03/2019 6:58 AM CDTEXAMINATION:CT ANGIOGRAM PE CHESTCLINICAL [...] again noted. There is no acute skeletal finding.[facility]-[id number] MethodistArterial blood [id number] 04:44:38* Test Item Value Reference Range Interpretation Comments Washerette Machine Operator (test code = 1839) SUSAN O2 therapy (test code = 1834) BIPAP Respiratory rate (test code = 2149) 10 bpm pH, arterial (test code = 2744-1) 7.374 7.350- 7.450 units pCO2, arterial (test code = 2018-) 36.5 35.0- 45.0 mmHg pO2, arterial (test code = 2703-7) 222.0 80.0- 90.0 mmHg H O2 saturation, arterial (test code = 44989-6) 100.0 % 95-100 Base excess, arterial (test code = 1925-7) -3.9 mEq/L Bicarbonate (test code = 349) 21.3 21.0- 28.0 mEq/L O2 content (test code = 1828) 17.8 VOL% FiO2, inspired O2% (test code = 1389) 90.0 % Carboxyhemoglobin (test code = 41896-7) 0.5 % 0-1.4 Reference Ranges: CarboxyhemoglobinNon smoker: 0.0 - 2.0%Smoker: 2.1 - 5.0%Heavy smoker: 5.1 - 9% Methemoglobin (test code = 2613-8) 0.4 % 0-1 Hemoglobin, blood gas (test code = 45224-3) 12.4 g/dL 14-18 L pO2, A-a (test code = 1989) 381.9 mmHg Lab Interpretation (test code = 34262-4) Abnormal Bruno MethodistTroponin, F-[id number] 02:09:46* Test Item Value Reference Range Interpretation Comments Troponin, I-Stat (test code = 2359) 0.02 ng/mL 0-0.08 0.09 - 1.49 ng/ml May indicate increased risk of acute coronary syndrome. >=1.5 ng/ml Consistent with acute myocardial infarction. The diagnostic value of a single normal or non-diagnostic result is questionable. Serial samples at 2-6 hour intervalsare required to rule out acute myocardial injury. [place] PresybeterianUs duplex venous lower dbzibpglq9285-20-81 00:16:03Hm Interface, Radiology Results - 04/03/2019 12:19 AM CDTEXAMINATION: US DUPLEX VENOUS [...] There is no evidence of deep venous thrombosis.[facility]-[id number] MethodistAnti Xa, rzcyoxayqinfgr6876-50-00 21:26:49* Test Item Value Reference Range Interpretation Comments Anti Xa, unfractionated (test code = 3274-8) <0.10 0.3-0.7 L Therapeutic Range: 0.30 - 0.70 U/mL Lab Interpretation (test code = 12280-8) Abnormal Bruno MethodistUnsuccessful Attempt - [id number] 14:26:14Johanna Gregorio RN 04/02/2019 2:35 PMUnsuccessful Attempt [...] member via phone with Charge Nurse Lois Boo Family stated " multiple VAD history to [...] is NOT a PICC candidate. Recommend STAT CVC.[place] [facility] Clinical Dnpuitctzc4877-08-69 09:47:35Gagandeep Moreno NP 04/02/2019 12:03 PMMr Gastelum [...] mL (dosing weight)Pleas e refer to the [facility] for actual med/fluid administrations.[place] MethodistLactic acid jxyke9679-78-35 07:42:46* Test Item Value Reference Range Interpretation Comments Lactic acid (test code = 37847-9) 2.8 mmol/L 0.5-2.2 H Lab Interpretation (test code = 26994-7) Abnormal [place] MethodistEchocardiogram complete w contrast and 3D if mbelvu5800-54-03 08:57:55* Test Item Value Reference Range Interpretation Comments Velocity Ratio (V1/V2) (test code = 4689) 1.00 m/s IVS,d (test code = 9803369296) 1.27 cm EF (test code = 1063830844) 54.97 % Ascending aorta (test code = 8343132460) 2.94 cm LVPWD,d (test code = 7892070142) 1.27 cm AoV Mean PG (test code = 6233491059) 1.80 mmHg AV LVOT peak gradient (test code = 8991160654) 3.35 mmHg MV mean gradient (test code = 2355341402) 0.99 mmHg MV valve area p 1/2 method (test code = 4313431112) 4.03 cm2 PV Pk Grad (test code = 2814688600) 2.29 mmHg E/A ratio (test code = 1143860008) 0.69 E wave decelartion time (test code = 4522486604) 188.03 msec IVRT (test code = 9606709974) 85.63 msec LVOT Diam,S (test code = 2341683611) 1.99 cm LVOT area (test code = 3647725956) 3.11 cm2 LVOT Vmax (test code = 7536719888) 0.92 m/s LVOT VTI (test code = 9372267637) 0.17 m AoV Peak PG (test code = 8042445767) 3.36 mmHg MV Peak E Robert (test code = 4065708814) 0.53 m/s MV stenosis pressure 1/2 time (test code = 4037906801) 54.53 ms MV Peak A Robert (test code = 8177583084) 0.77 m/s BSA (test code = 2826364776) 1.87 m2 Ao Root Diameter (test code = 5015924485) 3.11 cm AoV Area, Vmax (test code = 4745321316) 3.12 cm2 AoV Area, VTI (test code = 4844417770) 3.09 cm2 AoV Vmax (test code = 9637978868) 0.92 m/s BSA Rosa (test code = 1763724862) 1.91 m2 BSA Haycock (test code = 1062683291) 1.90 m2 IVS/LVPW,2D (test code = 9704139116) 1.00 Left Atrium Dimension Anterior (test code = 9201674068) 3.26 cm LV,d (test code = 5036748319) 4.53 cm LV,s (test code = 1318880366) 3.24 cm PV VMAX (test code = 3477299404) 0.76 m/s BMI (test code = 7142375654) 26.00 kg/m2 MV E A ratio (test code = 2278823206) 0.69 AoV area i VTI BSA Martín (test code = 6038255526) 1.65 cm2/m2 MR peak grad (test code = 5023343987) 2.16 mmHg Ao Root Diameter (test code = 6080938403) 3.11 cm LV SYS VOL (test code = 6738920246) 42.31 ml LV HANDY VOL (test code = 0310976651) 93.96 ml LA area s A4C (test code = 6587414681) 16.26 cm2 LA Vol MOD A4C (test code = 6601231462) 36.18 ml LV SI Teich 2D (test code = 6396640919) 27.65 ml/m2 LV SV Teich 2D (test code = 9606268052) 51.65 ml LV Vol s Teich PSAX (test code = 8321586374) 42.31 ml LVOT CI (test code = 4823310236) 2.37 l/min/m2 LVOT CO (test code = 5550811129) 4.43 l/min LVOT HR for LVOT CO (test code = 8878484322) 81.16 bpm LVOT SI (test code = 3485284063) 29.22 ml/m2 MV Vmax (test code = 8813955686) 0.73 m MV VTI Tips (test code = 0748294181) 0.14 m AoV Vmn (test code = 9221820778) 0.65 IVS s 2D (test code = 9931026708) 1.46 LV FS Cube 2D (test code = 6253411073) 28.43 LV FS Teich 2D (test code = 1049296138) 28.43 AoV VTI (test code = 9979364036) 0.18 m LV EF,2D (test code = 7131205044) 63.34 % MV AE ratio (test code = 3489469164) 1.46 LVOT Vmn (test code = 5724551720) 0.57 Pt Size (test code = 0673527013) 170.18 Pt Wt (test code = 3659115470) 75.30 Aov area Vmn (test code = 7298050437) 2.77 cm2 LA A_P score P (test code = 2558652123) 0.87 LVOT mean grad (test code = 6129270680) 1.58 mmHg MAX Pred HR (test code = 6261736764) 185.84 85 of MPHR (test code = 0470069137) 157.96 AoV area I VMN bsa (test code = 5803916354) 1.48 cm2/m2 Calc MPHR (test code = 3164130298) 185.84 bpm IVS pct thck PLAX (test code = 8693406047) 14.65 % LV SI Cube 2D (test code = 0073096192) 31.54 ml/m2 LV SV Cube 2D (test code = 5518482422) 58.93 ml LV vol d cube 2D (test code = 6736623014) 93.03 ml LV vol s cube 2D (test code = 8536482109) 34.11 ml LVPW pct thck PLAX (test code = 1780541431) 18.36 % LVPW s PLAX (test code = 9136137843) 1.51 cm MV Decel slope (test code = 4736102508) 2.83 m/s2 Pred Exer Dur R1 (test code = 4003347985) 12.67 Pred METS R1 (test code = 4804408270) 12.88 MARIN (test code = MARIN) The left ventricular denita ca size is normal. Left ventricular systolic function is moderately impaired. There is mild left ventricular concentric hypertrophy. LVEF 40% Apical segments and cavity is not clearly visualized but appears akinetic. LVEF reprtedely normal a year ago- not able to view the image [place] [facility] nibgbx8738-00-77 20:09:36Hm Interface, Radiology Results 03/31/2019 8:12 PM [...] in right caroti d artery (less than 50%)...[facility]-[id number] [facility] Brain Wo Contrast 2019-03-31 16:36:39Hm Interface, Radiology [...] mastoid air cells are clear.IMPRESSION:No acute intracranial abnormality.[facility]-[id number] MethodistXR Abdomen 1 Htzngepd6056-77-55 22:19:42Hm Interface, Radiology Results 03/30/2019 10:22 PM CDTEXAMINATION: XR ABDOMEN 1 PORTABLECLINICAL HISTORY: kidney stone COMPARISON: October 25, 2018.IMPRESSION:Interval placement of double pigtail left nephroureteral stent. No evidence of renal or ureteral calculus. No free intra-abdominal air. Nonobstructive nonspecific bowel gas pattern. Redemonstration of multiple radiopaque bodies overlying the midline upper abdomen. Trace right pleural effusion. Osseous structures are unchanged.[facility]- [id number] and approved by cmo & president/fellow: Abdirizak Fox M.D.I, Christopher Munoz Jr., M.D., personally reviewed the images and resident's/fellow's findings and agree with the final report.[place] [facility] Echocardiogram complete w contrast and 3D if voupvi6296-46-71 22:15:06* Test Item Value Reference Range Interpretation Comments Ao Root Diameter (test code = 6982189671) 3.18 cm BSA Rosa (test code = 5670671399) 1.95 m2 BSA (test code = 5546036114) 1.97 m2 IVS,d (test code = 0161400637) 0.98 cm IVS/LVPW,2D (test code = 7101704113) 0.86 Left Atrium Dimension Anterior (test code = 4788838205) 3.82 cm LV,d (test code = 4751124841) 4.83 cm LV EF,2D (test code = 6015855525) 47.34 % LV,s (test code = 7486048681) 3.90 cm LVOT area (test code = 4543015638) 3.87 cm2 LVOT Diam,S (test code = 2041011043) 2.22 cm LVPWD,d (test code = 3003165161) 1.14 cm BMI (test code = 6967009792) 22.51 kg/m2 Ascending aorta (test code = 5269669425) 2.76 cm Ao Root Diameter (test code = 8881474577) 3.18 cm LV SYS VOL (test code = 5050982292) 65.98 ml LV HANDY VOL (test code = 5994003988) 109.19 ml LV SI Teich 2D (test code = 5174868492) 21.95 ml/m2 LV SV Teich 2D (test code = 1995224859) 43.21 ml LV Vol s Teich PSAX (test code = 6865563364) 65.98 ml BSA Haycock (test code = 9104324306) 1.95 m2 IVS s 2D (test code = 7473215749) 1.22 LV FS Teich 2D (test code = 3573138791) 19.25 LV FS Cube 2D (test code = 5851663813) 19.25 Pt Size (test code = 3075403187) 182.88 Pt Wt (test code = 6949794659) 75.30 LA A_P score P (test code = 7859669018) 1.45 MAX Pred HR (test code = 8723927198) 185.84 85 of MPHR (test code = 6723403302) 157.97 Calc MPHR (test code = 2776056965) 185.84 bpm IVS pct thck PLAX (test code = 1756613868) 24.20 % LV SI Cube 2D (test code = 5844934918) 27.13 ml/m2 LV SV Cube 2D (test code = 8299469641) 53.40 ml LV vol d cube 2D (test code = 5403301009) 112.80 ml LV vol s cube 2D (test code = 8272647683) 59.40 ml LVPW pct thck PLAX (test code = 6752425630) 4.41 % LVPW s PLAX (test code = 1645264736) 1.19 cm Pred Exer Dur R1 (test code = 7536529420) 12.67 Pred METS R1 (test code = 4928694771) 12.88 EF (test code = 6553618556) 39.57 % MARIN (test code = MARIN) Incomplete study due to u ncooperative patient per marketing executive's comments. LVEF appears to be depressed and noted to be normal on study performed in 07/2018 [place] MethodistCT Head Wo Iiomhpcg4806-08-95 14:14:00Hm Interface, Radiology Results - 03/29/2019 2:17 PM CDTEXAMINATION: CT HEAD [...] IMPRESSION:1. No CT evidence of acute intracranial abnormality.[id number] MethodistSalicylate zenwd2337-59-58 14:02:41 * Test Item Value Reference Range Interpretation Comments Salicylate (test code = 4024-6) <0.4 3-30 L Therapeutic Range: 5 - 30 mg/dL Lab Interpretation (test code = 83166-0) Abnormal [place] MethodistAcetaminophen hupjh0489-57-80 14:02:41* Test Item Value Reference Range Interpretation Comments Acetaminophen level (test code = 3298-7) <15.3 10-30 Therapeutic 10- 30 ug/mL Possible Toxicity 150-200 ug/mL Probable Toxicity >200 ug/mL [place] MethodistAmmonia liure8660-37-71 13:58:38* Test Item Value Reference Range Interpretation Comments Ammonia (test code = 1841-6) 30 umol/L 16-60 [place] [facility] Preliminary Interpretation - Not an Zvznb9622-70-18 13:47:51* Test Item Value Reference Range Interpretation Comments MARIN (test code = MARIN) Francisco Arboleda MD 03/05 4:10 [facility] Preliminary Interpretation - Not an OrderPerformed by: Francisco Arboleda MDAuthorized by: Francisco Arboleda MD ECG reviewed by ED Physician in the abse nce of a aerospace quality engineer: yes Interpretation: Interpretation: abnormal Rate: ECG rate: 65 ECG rate assessment: normal Rhythm: Rhythm: sinus rhythm QRS: QRS axis: LeftT waves: T waves: inverted Inverted: III Lab Interpretation (test code = 07721-4) Abnormal [place] MethodistBLOOD MOAUCUX2010-80-97 07:40:00* Test Item Value Reference Range Interpretation Comments Culture Observations (test code = COB1) NO GROWTH AFTER 5 DAYS BLOOD NENDAQA7289-59-91 07:40:00* Test Item Value Reference Range Interpretation Comments Culture Observations (test code = COB1) NO GROWTH AFTER 5 DAYS URINE IBDFNUW8375-75-98 09:51:00* Test Item Value Reference Range Interpretation [...] code = sxt) ug/mL R BASIC METABOLIC [id number] 06:14:00* Test Item Value Reference Range Interpretation [...] (test code = RBCMOR) NORMAL BASIC METABOLIC [id number] 04:58:00* Test Item Value Reference Range Interpretation [...] MORPH (test code = RBCMOR) NORMAL U/S [id number] 17:04:20EXAMINATION: Ultrasound and Fluoroscopic-guided Nontunneled central venouscatheter placement LOCATION: D4.HISTORY: Central venous cannula insertionSEDATION: The patient did not require conscious sedation for the procedure.RADIATION DOSE: FLUOROSCOPY TIME:27.8 seconds with 1 fluoroscopic image.ANTIBIOTICS: None. Not indicated.TECHNIQUE: The risks, benefits, and alternatives were discussed and informedconsent was obtained. Prior to beginning the procedure, [place] Protocol wasused to confirm the patient's identity [...] side according to standard hospitalprotocol.XR CNTRL LN [id number] 17:04:20EXAMINATION: Ultrasound and Fluoroscopic-guided Nontunneled central venouscatheter placement LOCATION: D4.HISTORY: Central venous cannula insertionSEDATION: The patient did not require conscious sedation for the procedure.RADIATION DOSE: FLUOROSCOPY TIME:27.8 seconds with 1 fluoroscopic image.ANTIBIOTICS: None. Not indicated.TECHNIQUE: The risks, benefits, and alternatives were discussed and informedconsent was obtained. Prior to beginning the procedure, [place] Protocol wasused to confirm the patient's identity [...] the bed side according to standard hospitalprotocol.VANCOMYCIN ALIWVT7857-54-09 12:40:00 * Test Item Value Reference Range Interpretation Comments VANC RANDOM (test code = VANCR) 22.4 ug/dL 10.0-20.0 HH BASIC METABOLIC [id number] 12:29:00* Test Item Value Reference Range Interpretation [...] code = 09D) 9.0 mg/dL 8.3-9.5 WOUND/SKIN/ABS.&GRAMSTAIN [id number] 09:20:00* Test Item Value Reference Range Interpretation [...] (test code = sxt) ug/mL S VANCOMYCIN [id number] 21:37:00* Test Item Value Reference Range Interpretation Comments VANC TROGH (test code = VANCT) 32.9 ug/dL 10.0-20.0 HH XR ABDOMEN 1 VIEW [id number] 13:41:17Abdomen, one viewLocation Code: V8Delnlieh history: ConstipationComments: Large amount of stool is present throughout the colon. There are nosignificantly dilated loops of bowel proximally. There is no visualizedabnormal calcification. Left ureteral stent noted. The visualized osseousstructures are intact.Impression: Large amount stool throughout colon suggesting constipation. LACTIC [id number] 16:22:00* Test Item Value Reference Range Interpretation Comments LACTIC ACD (test code = LA) 1.0 mmol/L 0.4-2.0 BASIC METABOLIC [id number] 05:39:00* Test Item Value Reference Range Interpretation [...] (test code = RBCMOR) NORMAL URINALYSIS WITH [id number] 21:22:00* Test Item Value Reference Range Interpretation [...] code = USPERM) /HPF NONE DRUGS OF [id number] 21:18:00* Test Item Value Reference Range Interpretation [...] 200 ng/mL Opiates 2000 ng/mL ERYTHROCYTE SED [id number] 20:32:00* Test Item Value Reference Range Interpretation Comments SED RATE (test code = SEDR) 87 mm/hr 0-10 H BRAIN NATRIURETIC [id number] 20:03:00* Test Item Value Reference Range Interpretation Comments proBNP (test code = PBNP) 458 pg/mL 0-125 H LACTIC [id number] 20:01:00* Test Item Value Reference Range Interpretation Comments LACTIC ACD (test code = LA) 0.8 mmol/L 0.4-2.0 CARDIAC [id number] 19:59:00* Test Item Value Reference Range Interpretation Comments TROPONIN I (test code = A84) <0.015 ng/mL 0.000-0.045 COMPREHENSIVE METABOLIC [id number] 19:59:00* Test Item Value Reference Range Interpretation [...] = 56A) <10 mg/dL <=10 AMYLASE AND [id number] 19:55:00* Test Item Value Reference Range Interpretation Comments AMYLASE (test code = 10A) 30 U/L 28-100 LIPASE (test code = 60A) 56 IU/L 73-393 L PHOSPHORUS (P04)2019-02-12 19:55:00* Test Item Value Reference Range Interpretation Comments PHOSPHORUS (test code = 43D) 2.5 mg/dL 2.7-4.6 L [id number] 19:53:00* Test Item Value Reference Range Interpretation Comments MAGNESIUM (test code = 48A) 1.7 mg/dL 1.8-2.4 L PRO TIME AND [id number] 19:53:00* Test Item Value Reference Range Interpretation [...] = RBCMOR) NORMAL XR PELVIS AP 1 [id number] 19:02:57EXAM: Right hip series, 2 views; left hip series, 2 views; pelvis x-ray, oneview; right ankle series, 3 views; and right foot series, 3 viewsDictation location: [id number]: Acute infectious diseaseCOMPARISON: None.DISCUSSION:Pelvis: A frontal view [...] first phalanx suggests prior surgeryrather than ac [place] erosion. Findings also suggest previous hammertoe surgery ofthe second DIP j oint. Correlation with operative history is needed.4. 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 Findings also suggest previous hammertoe surgery ofthe second DIP j oint. Correlation with operative history is needed.4. Previous amputation of mos t of the fifth ray to the level of the base of thefifth metatarsal.XR HIP LEFT UNILATERAL 2 [id number] 19:02:57EXAM: Right hip series, 2 views; left hip series, 2 views; pelvis x-ray, oneview; right ankle series, 3 views; and right foot series, 3 viewsDictation location: [id number]: Acute infectious diseaseCOMPARISON: None.DISCUSSION:Pelvis: A frontal view [...] first phalanx suggests prior surgeryrather than ac [place] erosion. Findings also suggest previous hammertoe surgery ofthe second DIP j oint. Correlation with operative history is needed.4. Previous amputation of mos t of the fifth ray to the level of the base of thefifth metatarsal.XR ANKLE RIGHT COMPLETE 3 [id number] 19:02:57EXAM: Right hip series, 2 views; left hip series, 2 views; pelvis x-ray, oneview; right ankle series, 3 views; and right foot series, 3 viewsDictation location: [id number]: Acute infectious diseaseCOMPARISON: None.DISCUSSION:Pelvis: A frontal view [...] first phalanx suggests prior surgeryrather than ac [place] erosion. Findings also suggest previous hammertoe surgery ofthe second DIP j oint. Correlation with operative history is needed.4. Previous amputation of mos t of the fifth ray to the level of the base of thefifth metatarsal.XR FOOT RIGHT COMPLETE 3 [id number] 19:02:57EXAM: Right hip series, 2 views; left hip series, 2 views; pelvis x-ray, oneview; right ankle series, 3 views; and right foot series, 3 viewsDictation location: [id number]: Acute infectious diseaseCOMPARISON: None.DISCUSSION:Pelvis: A frontal view [...] first phalanx suggests prior surgeryrather than ac [place] erosion. Findings also suggest previous hammertoe surgery ofthe second DIP j oint. Correlation with operative history is needed.4. Previous amputation of mos t of the fifth ray to the level of the base of thefifth metatarsal.XR CHEST 1 VIEW [id number] 18:54:49EXAM: Portable chest x-rayDictation location: A1 COMPARISON: Chest x-ray on 05/15/16INDICATION: [id number]: Acute infectious diseaseDISCUSSION:Suboptimal inspiration is noted. There [...] was obtained. Prior to beginning the procedure, [place] Protocol was used to confirm the patient's identity and planned procedure. Prior to the procedure, the central veins were evaluated by ultrasound, an image recorded and saved in PACS.Maximum sterile barriers including cap, mask, hand hygiene, sterile gloves, sterile gown, large sterile drape and cutaneous antisepsis were used.Director Of Retail Merchandising image was performed prior to procedure demonstrating [...] BLOOD LOSS: Less than 30 milliliters.DISCHARGED TO: [facility] and then to inpatient unit.CONDITION: Stable.IMPRESSION: Successful tunneled catheter exchange with placement of 9 Indonesian dual lumen Lantigua catheter.PLAN: The catheter is ready for immediate use. When treatment is completed, removal ca n be scheduled by calling VIR. Final Dictated by: MD Harvey Ankitku mar NDictated DT/TM: 05/18/2018 4:49 pmSigned by: MD Harvey Ankitkumar NSigned (Electronic Signature): 05/18/2018 4:55 pmUS Retroperitoneal Bubknryt0419-65-71 08:19:09Patient: MAXIMO GASTELUM Date/Time05/14/2018 06:08 CDTReason for ExamRenal failureReportULTRASOUND OF THE KIDNEYS AND BLADDERLocation of dictation: [id number] HISTORY: Renal failureCOMPARISON: CT of the abdomen [...] 05/14/2018 8:16 amSigned by: MD Sandoval Alfred ESignamilcar (Electronic Signature): 05/14/2018 8:19 amXR Chest 1 View [id number] 15:28:34 Patient: MAXIMO GASTELUM am Date/Time05/13/2018 15:07 [...] FSigned (Electronic Signature): 05/04 3:28 pmCulture, Blood Ohxfiok4321-68-03 14:41:00Specimen: BloodCollected: 07/09/2017 10:05 Status: Final Last Updated: 08/22/2017 14:41 (1) ER Bed 6 Culture Result (Final) (Final) 07/10/17 Gram Positive Coccobacillus (aerobic bottle) 07/10/17 Called to Gabbie ZARAGOZA at 1345[facility] [place] Lab Value 07/14/17 Gram variable coccobacillus 07/14/17 Sent to reference laboratory for further studies 08/13/17 Correction: Gram negative coccobacillus, previously reportedas Gram Positive coccobacillus (aerobic bottle) 08/13/17 Psychrobacter phenylpyruvicus/sanguinis 08/22/17 Organism is too fastidious for routine susceptibilitystudies. Performed at [facility] [id number] Dir: Brandyn Gomez MD Result before changed by DORA on 07/10/2017 13:49: Culture Result (Prelim) (Prelim) <Specimen Received, Culture Pending Culture, Blood [id number] 17:59:00Specimen: BloodCollected: 07/17/2017 14:40 Status: Final Last Updated: 07/22/2017 17:59 Culture Result (Final) (Final) No Growth After 5 Days CBC with Edjyerjpjjnh9848-70-23 06:11:00* Test Item Value Reference Range Interpretation [...] code = ALYMPH) 3.8 K/cumm 0.5-4.6 N Harvey Abs (test code = AMONO) 0.6 K/cumm 0.0-1.2 N Eos Abs (test code = AEOS) 0.60 K/cumm 0.00-0.74 N Baso Abs (test code = ABASO) 0.1 K/cumm 0.00-0.21 N Hypochromic (test code = HYPO) Slight Comprehensive Metabolic [id number] 06:08:00* Test Item Value Reference Range Interpretation [...] race is not provided, and the patient isAfrican-Nicaraguan, multiply by 1.212. If sex is not [...] the National Kidney Found ation,http://nkdep.nih.gov Tobramycin Trough, [id number] 19:18:00* Test Item Value Reference Range Interpretation Comments Tobra, Trough (test code = TOBTR) 1.36 ug/mL 0.5-2.0 N Ovrdutupan0596-87-30 06:49:00* Test Item Value Reference Range Interpretation Comments Phosphorus (test code = PO4) 3.9 mg/dL 2.70-4.50 N Magnesium, [id number] 06:49:00* Test Item Value Reference Range Interpretation Comments Magnesium (test code = MG) 1.8 mg/dL 1.7-2.5 N Basic Metabolic [id number] 06:49:00* Test Item Value Reference Range Interpretation [...] race is not provided, and the patient isAfrican-Nicaraguan, multiply by 1.212. If sex is not [...] the National Kidney Found ation,http://nkdep.nih.gov Basic Metabolic Gisfc2433-39-62 06:40:00* Test Item Value Reference Range Interpretation [...] race is not provided, and the patient isAfrican-Nicaraguan, multiply by 1.212. If sex is not [...] the National Kidney Found ation,http://nkdep.nih.gov Basic Metabolic Anizx7264-10-61 04:41:00* Test Item Value Reference Range Interpretation [...] race is not provided, and the patient isAfrican-Nicar[place], multiply by 1.212. If sex is not [...] the National Kidney Found ation,http://nkdep.nih.gov Culture, Wound Dftadelptxw2535-95-41 10:41:00Specimen: BackCollected: 07/13/2017 05:30 Status: Final Last Updated: 07/17/2017 10:41 (1) SACRAL WOUND Gram Stain (Final) (Final) 07/13/17 No organsims seen, No WBC's seen Culture Result (Final) (Final) \\S\\07/15/17 Few Non Lactose Mine Technician Gram negative rods \\S\\07/15/17 Few Gamma Hemolytic [...] race is not provided, and the patient isAfrican-Nicaraguan, multiply by 1.212. If sex is not [...] by the National Kidney Found ation,http://nkdep.nih.gov Gentamicin, [id number] 19:03:00* Test Item Value Reference Range Interpretation Comments Gent, Trough (test code = GENTTR) 1.8 ug/mL 0.0-2.0 N Vancomycin, Iyxdyp8526-73-02 17:37:00* Test Item Value Reference Range Interpretation Comments Vanco, Trou (test code = VANTR) 15.6 ug/mL 10.0-20.0 N SP INS NON-TUNNEL CV [id number] 16:02:10PROCEDURE: Non tunneled central venous catheter with ultrasound andfluoroscopic guidance INDICATION: Osteomyelitis, need for long-term antibioticsDATE: 07/16/2017OPERATORS: Michelet Contreras M.D.FLUOROSCOPY TIME: 0.01 minutes; DAP: 1 Gy-cm2 CATHETER: 7 Indonesian x 15 cm Arrow triple lumenACCESS SITE: [...] advanced into the inferiorvena cava. A 4 Indonesian vascular sheath was placed. The inner dilatorand [...] was documented and images were stored to [facility].2. The catheter tip terminates in the high right atrium.IMPRESSION: Uneventf ul image guided placement of a non tunneled triple lumen centralvenous catheter as described.Location code: H81Apqbnru, Blood [id number] 13:33:00 Specimen: BloodCollected: 07/13/2017 05:30 Status: Final Last Updated: 07/04 13:33 Culture Result (Final) (Final) 07/15/17 Evidence of gr owth Yeast (aerobic bottle) 07/15/17 Called to Woody Santa at 11:27am YA Lara d Back Lab Value 07/15/17 Yeast 07/16/17 Melody albicans Culture, Wound Kswidvyidif2660-68-06 11:44:00Specimen: FootCollected: 07/12/2017 19:00 Status: Final Last [...] 16/8 Resistant Cefazolin (CFZ) >16 Resistant Ceftriaxone (FIRE PREVENTION SPECIALIST) >32 Resistant Chloramphenicol (C) 16 Intermediate Ciprofloxacin (CP) >2 Resistant Clindamycin (CM) >4 Resistant Erythromycin (E) >4 Resistant Gentamicin (GM) >8 Resistant Imipenem (IMP) >8 Resistant Levofloxacin (LEV) >4 Resistant Linezolid (LNZ) 2 Susceptible Oxacillin (OX1) >2 Resistant Penicillin (P) >8 Resistant Rifampin (RA) <=1 Susceptible Tetracycline (TE) 2 Susceptible Trimethoprim/Sulfa <=0.5/9.Susceptible (SXT) 5 Vancomycin (VA) 2 Susceptible Basic Metabolic [id number] 06:45:00* Test Item Value Reference Range Interpretation [...] race is not provided, and the patient isAfrican-Nicaraguan, multiply by 1.212. If sex is not [...] the National Kidney Found ation,http://nkdep.nih.gov Basic Metabolic Zzqjc9747-59-07 06:53:00* Test Item Value Reference Range Interpretation [...] race is not provided, and the patient isAfrican-Nicaraguan, multiply by 1.212. If sex is not [...] the National Kidney Found ation,http://nkdep.nih.gov Culture, Blood [id number] 19:09:00Specimen: BloodCollected: 07/09/2017 10:05 Status: Final Last [...] <=4 Susceptible Trimethoprim/Sulfa >2/38 Resistant Basic Metabolic Qreuu0311-60-27 07:09:00* Test Item Value Reference Range Interpretation [...] race is not provided, and the patient isAfrican-Nicar[place]uan, multiply by 1.212. If sex is not [...] the National Kidney Found ation,http://nkdep.nih.gov CBC with Xxtrcrwwdswf7117-66-48 07:08:00* Test Item Value Reference Range Interpretation [...] code = ALYMPH) 2.7 K/cumm 0.5-4.6 N Harvey Abs (test code = AMONO) 0.4 K/cumm 0.0-1.2 N Eos Abs (test code = AEOS) 0.32 K/cumm 0.00-0.74 N Baso Abs (test code = ABASO) 0.1 K/cumm 0.00-0.21 N Hypochromic (test code = HYPO) Slight Gentamicin, [id number] 16:46:00* Test Item Value Reference Range Interpretation Comments Gent, Trough (test code = GENTTR) 2.0 ug/mL 0.0-2.0 N Vancomycin, [id number] 13:02:00* Test Item Value Reference Range Interpretation Comments Vanco, Trou (test code = VANTR) 22.1 ug/mL 10.0-20.0 HH Basic Metabolic [id number] 06:21:00* Test Item Value Reference Range Interpretation [...] race is not provided, and the patient isAfrican-Nicaraguan, multiply by 1.212. If sex is not [...] the National Kidney Found ation,http://nkdep.nih.gov Basic Metabolic Mlsnv4661-43-69 09:38:00* Test Item Value Reference Range Interpretation [...] race is not provided, and the patient isAfrican-Nicaraguan, multiply by 1.212. If sex is not [...] recommended by the National Kidney Found ation,http://nkdep.nih.gov Drikqjipln7844-02-58 08:26:00* Test Item Value Reference Range Interpretation Comments Hemoglobin (test code = HGB) 8.3 gm/dL 13.4-17.4 L C. difficile amplified itycx7851-41-70 09:00:00Specimen: FecesCollected: 07/10/2017 15:55 Status: Final Last [...] code = ALYMPH) 2.3 K/cumm 0.5-4.6 N Harvey Abs (test code = AMONO) 0.4 K/cumm 0.0-1.2 N Eos Abs (test code = AEOS) 0.40 K/cumm 0.00-0.74 N Baso Abs (test code = ABASO) 0.0 K/cumm 0.00-0.21 N Hypochromic (test code = HYPO) Moderate Occult [id number] 08:47:00* Test Item Value Reference Range Interpretation Comments Occ Bld (test code = HSOB) Positive Negative A Comprehensive Metabolic Eziwr9941-13-06 05:10:00* Test Item Value Reference Range Interpretation Comments Sodium (test code = NA) 137 mmol/L 135-145 N Potassium (test code = K) 2.9 mmol/L 3.5-5.1 LL RE AD BACK LAB VALUESVERIFIED BY REPEAT TESTINGE.Annie @509am 07/11/2017 kms Chloride (test code = CL) [...] race is not provided, and the patient isAfrican-Nicaraguan, multiply by 1.212. If sex is not [...] the National Kidney Found ation,http://nkdep.nih.gov CBC with Xzgpnmsbnjbg6747-86-00 05:06:00* Test Item Value Reference Range Interpretation Comments WBC (test code = WBC) 10.8 K/cumm 4.4-10.5 H READ B ACK LAB VALUESVERIFIED BY REPEAT TESTINGcalled to Edwin Chung RN at 0500 07/11/2017. antibiotics. DD RBC (test code = RBC) 3.04 M/cumm 4.10-5.70 L Hemoglobin (test code = HGB) 7.9 gm/dL 13.4-17.4 L READ BACK LAB VALUESVERIFIED BY REPEAT TESTINGcalled to Edwin Chung RN at 0500 07/11/2017. No info was given. DD Hematocrit (test [...] code = ALYMPH) 3.6 K/cumm 0.5-4.6 N Harvey Abs (test code = AMONO) 0.5 K/cumm 0.0-1.2 N Eos Abs (test code = AEOS) 0.41 K/cumm 0.00-0.74 N Baso Abs (test code = ABASO) 0.0 K/cumm 0.00-0.21 N Hypochromic (test code = HYPO) Moderate [id number] 04:58:00* Test Item Value Reference Range Interpretation Comments Phosphorus (test code = PO4) 2.4 mg/dL 2.70-4.50 L Magnesium, Dngft0032-20-67 04:58:00* Test Item Value Reference Range Interpretation Comments Magnesium (test code = MG) 1.4 mg/dL 1.7-2.5 L Lactic Acid [id number] 04:57:00* Test Item Value Reference Range Interpretation Comments Lactic Acid, Bld (test code = LAC) 1.0 mmol/L 0.5-1.9 N Vancomycin, Jlcapc9105-39-12 01:29:00* Test Item Value Reference Range Interpretation Comments Vanco, Trou (test code = VANTR) 24.8 ug/mL 10.0-20.0 READ BACK LAB VALUESVERIFIED BY REPEAT TESTINGB.Nicole @128am 07/11/2017 [place]ms [address]& COCCYX 2+[id number] 08:27:57EXAM: SACRUM AND COCCYX 2 VIEWSINDICATION: WOUNDSCOMPARISON: [...] with diffuse softtissue edema noted.LOCATION: R16XR FEMUR 2V.-[id number] 08:25:01EXAM: XR FEMUR 2 VIEWS, LEFTINDICATION: WOUNDSCOMPARISON: [...] result indicates the absence of HIV1 and UFK1markexpyd.However, A Non-Reactive screen result does not rule [...] HIV RNA Quantitative is recommended. Hepatitis Acute [id number] 04:20:00* Test Item Value Reference Range Interpretation [...] = HBCABM) Nonreactive Non-Reactive A C-Reactive Protein, Diurw3420-12-73 03:44:00* Test Item Value Reference Range Interpretation Comments CRP (test code = CRP) 187.1 mg/L 0.0-5.0 H XR ABDOMEN KUB [id number] 21:05:48LOCATION: S01IDJWZOZ: 32-year-old male, clinical question of ureteral stents.COMMENT:A [...] Please see above comments f or details.Blood Gas+Lytes+Glu+Ca+Hgb+Hct+[id number] 17:48:00* Test Item Value Reference Range Interpretation [...] Degrees Celcius Comment (test code = COMMENT) qns/rwixqijzshcksizc9515 .cric.values.notified.svrt Puncture Site (test code = PUNSITE) Radial. R Drawing Tech ID (test code = DRAWTECH) sv iPAP (test code = IPAP) 0 cmH2O Respiratory Rate (test code = RESP RATE) 0 Lactic Acid, Blood Gas (test code = BGLA) 2.8 mmol/L CBC with Yewknoblnzgg1865-85-57 13:12:00* Test Item Value Reference Range Interpretation [...] code = ALYMPH) 2.1 K/cumm 0.5-4.6 N Harvey Abs (test code = AMONO) 0.2 K/cumm 0.0-1.2 N Baso Abs (test code = ABASO) 0.2 K/cumm 0.00-0.21 N RBC Morphology (test code = RBCMRPH) Slight Anisocytosis Platelet Est (test code = PLTEST) Increased Platelet on Smear Urinalysis Xtugfcph7524-34-83 13:04:00* Test Item Value Reference Range Interpretation Comments Color (test code = COLOR) Yellow Yellow,Straw,Pl yellow N Clarity (test code = CLAR) Cloudy Clear A Specific [place] (test code = SPGR) 1.025 1.001-1.035 N [...] code = STEWART) Many Triple Phosphate /HPF [id number] 13:03:00* Test Item Value Reference Range Interpretation [...] Negative A CT HEAD OR BRAIN WO [id number] 12:56:53EXAM: CT BRAIN WITHOUT CONTRASTINDICATION: Altered mental [...] unremarkable.IMPRESSION:No acute intracranial abnormality. No intracranial hemorrhage.LOCATION: [id number]-[id number] 12:56:00* Test Item Value Reference Range Interpretation Comments NT ProBnp (test code = PBNP) 541 pg/mL 0-124 H Alcohol/Ethanol, Ftsqy3025-04-34 12:50:00* Test Item Value Reference Range Interpretation Comments Alcohol, Ethyl (test code = ETOH) <0.01 g/dL 0.00-0.01 N Intoxicated 0.080 g/dL or more Lactic Acid [id number] 12:45:00* Test Item Value Reference Range Interpretation Comments Lactic Acid, Bld (test code = LAC) 1.4 mmol/L 0.5-1.9 N Comprehensive Metabolic [id number] 12:37:00* Test Item Value Reference Range Interpretation [...] race is not provided, and the patient isAfrican-Nicaraguan, multiply by 1.212. If sex is not [...] National Kidney Found ation,http://nkdep.nih.gov XR CHEST 1 [id number] 10:32:36EXAM: CHEST ONE VIEWINDICATION: SwellingCOMPARISON: January 29, 2017TECHNIQUE: AP view of the chest.FINDINGS: The cardiomediastinal silhouette is normal. There are mild congestivechanges bilaterally. No pneumothorax or pleural effusion is identified.The osseous structures are unremarkable.IMPRESSION: Mild congestive changes bilaterally.LOCATION: A22Kponegj, Mgane6105-13-37 08:44:00Specimen: UrineCollected: 02/01/2017 05:30 Status: Final Last Updated: 02/03/2017 08:43 Culture Result (Final) (Final) 02/02/17 <10,000 CFU/mL Yeast Comprehensive Metabolic [id number] 06:56:00* Test Item Value Reference Range Interpretation [...] race is not provided, and the patient isAfrican-Nicaraguan, multiply by 1.212. If sex is not [...] the National Kidney Found ation,http://nkdep.nih.gov CBC with Bhuohfhyiecu7325-40-08 06:53:00* Test Item Value Reference Range Interpretation [...] code = ALYMPH) 2.1 K/cumm 0.5-4.6 N Harvey Abs (test code = AMONO) 0.5 K/cumm 0.0-1.2 N Eos Abs (test code = AEOS) 0.28 K/cumm 0.00-0.74 N Baso Abs (test code = ABASO) 0.1 K/cumm 0.00-0.21 N Culture, Klkqx9862-21-15 08:36:00Specimen: UrineCollected: 01/28/2017 15:00 Status: Final Last Updated: 01/30/2017 08:36 Culture Result (Final) (Final) 01/29/17 50,000 CFU/mL Yeast Basic Metabolic [id number] 06:05:00* Test Item Value Reference Range Interpretation [...] race is not provided, and the patient isAfrican-Nicaraguan, multiply by 1.212. If sex is not [...] by the National Kidney Found ation,http://nkdep.nih.gov Gentamicin, Gotdoe1082-22-99 06:05:00* Test Item Value Reference Range Interpretation Comments Gent, Trough (test code = GENTTR) 0.4 ug/mL 0.0-2.0 N HIV [id number] 17:47:00* Test Item Value Reference Range Interpretation Comments HIV 1/2 Antibody (test code = HIV1/2AB) Non-Reactive Non-Reactive N HIV1/2 Antibody screen result indicates the absence of HIV1 and HTM6iomjzdylx.However, A Non-Reactive screen result does not rule [...] suspected, HIV RNA Quantitative is recommended. Urinalysis Auiniwkz3732-08-00 18:00:00* Test Item Value Reference Range Interpretation Comments Color (test code = COLOR) Yellow Yellow,Straw,Pl yellow N Clarity (test code = CLAR) Sl Cloudy Clear A Specific [place] (test code = SPGR) 1.009 1.001-1.035 N [...] Bacteria (test code = BACT) Moderate /HPF [id number] 16:22:00* Test Item Value Reference Range Interpretation [...] code = THC) Negative Negative N Gentamicin, Cjorna2173-44-58 13:44:00* Test Item Value Reference Range Interpretation Comments Gent Randm (test code = GENTR) 4.9 ug/mL 0.0-2.0 HH VERIFIED BY REPEAT TESTING READ BACK LAB VALUES PAYALEma PULIDO 1344 01/28/17 IN Basic Metabolic [id number] 07:04:00* Test Item Value Reference Range Interpretation [...] race is not provided, and the patient isAfrican-Nicar[place]uan, multiply by 1.212. If sex is not provided, and thepatient is female, multiply by 0.742. Results for patients <18 years ofage have not been validated by the MDRD study and should be interpretedwith caution.eGFR Result Interpretation:eGFR > or = 60 is in the Normal RangeeGFR < 60 may mean kidney diseaseeGFR < 15 may mean kidney failureRanges recommended by the National Kidney Found [facility],http://nkdep.nih.gov CBC with Vokqtcuptltg3149-77-23 06:45:00* Test Item Value Reference Range Interpretation [...] code = ALYMPH) 2.3 K/cumm 0.5-4.6 N Harvey Abs (test code = AMONO) 0.4 K/cumm 0.0-1.2 N Eos Abs (test code = AEOS) 0.31 K/cumm 0.00-0.74 N Baso Abs (test code = ABASO) 0.0 K/cumm 0.00-0.21 N Hypochromic (test code = HYPO) Slight Gentamicin, [id number] 22:40:00* Test Item Value Reference Range Interpretation Comments Gent Randm (test code = GENTR) >12.9 ug/mL 0.0-2.0 HH READ BACK LAB VALUESVERIFIED BY REPEAT TESTINGAryan @1040pm 01/27/2017 kms Culture, Blood [id number] 08:24:00Specimen: BloodCollected: 01/22/2017 01:46 Status: Final Last Updated: 01/27/2017 08:24 (1) ER Bed 3 Culture Result (Final) (Final) No Growth After 5 Days Culture, Blood Routine 2017-01-27 08:24:00Specimen: BloodCollected: 01/22/2017 01:30 Status: Final Last Updated: 01/27/2017 08:24 (1) ER Bed 3 Culture Result (Final) (Final) No Growth After 5 Days Gentamicin, Pcjkhu8486-36-08 06:29:00* Test Item Value Reference Range Interpretation Comments Gent, Trough (test code = GENTTR) <0.4 ug/mL 0.0-2.0 N Basic Metabolic [id number] 05:54:00* Test Item Value Reference Range Interpretation [...] race is not provided, and the patient isAfrican-Nicar[place]uan, multiply by 1.212. If sex is not [...] by the National Kidney Found ation,http://nkdep.nih.gov Culture, [id number] 08:30:00Specimen: UrineCollected: 01/21/2017 20:45 Status: Final Last [...] GENTR) <0.4 ug/mL 0.0-2.0 N Culture, Wound Flvbwmmzixb8075-16-12 09:49:00Specimen: ButtockCollected: 01/22/2017 08:00 Status: Final Last [...] Resistant Cefazolin (CFZ) > 16 Resistant Ceftriaxone (FIRE PREVENTION SPECIALIST) >32 Resistant Chloramphenicol (C) 16 Intermediate Ciprofloxacin (CP) >2 Resistant Clindamycin (CM) >4 Resistant Erythromycin (E) >4 Resistant Gentamicin (GM) >8 Resistant Imipenem (IMP) >8 Resistant Levofloxacin (LEV) >4 Resistant Linezolid (LNZ) 2 Susceptible Oxacillin (OX1) >2 Resistant Penicillin (P) >8 Resistant Rifampin (RA) <=1 Susceptible Tetracycline (TE) 2 Susceptible Trimethoprim/Sulfa < =0.5/9.Susceptible (SXT) 5 Vancomycin (VA) 2 S usceptible Renal Lgldx2794-67-17 07:10:00* Test Item Value Reference Range Interpretation [...] race is not provided, and the patient isAfrican-Nicaraguan, multiply by 1.212. If sex is not [...] by the National Kidney Found ation,http://nkdep.nih.gov Magnesium, Qchze4532-30-68 06:55:00* Test Item Value Reference Range Interpretation Comments Magnesium (test code = MG) 1.2 mg/dL 1.7-2.5 L CBC with Nhxercbjitvd5286-05-18 06:48:00* Test Item Value Reference Range Interpretation [...] code = ALYMPH) 1.8 K/cumm 0.5-4.6 N Harvey Abs (test code = AMONO) 0.4 K/cumm 0.0-1.2 N Eos Abs (test code = AEOS) 0.22 K/cumm 0.00-0.74 N Baso Abs (test code = ABASO) 0.0 K/cumm 0.00-0.21 N Hypochromic (test code = HYPO) Slight Comprehensive Metabolic Xjeid7065-72-31 08:28:00* Test Item Value Reference Range Interpretation [...] race is not provided, and the patient isAfrican-Nicaraguan, multiply by 1.212. If sex is not [...] the National Kidney Found ation,http://nkdep.nih.gov CBC with Qfbihwtxawdq4340-59-81 08:10:00* Test Item Value Reference Range Interpretation [...] code = ALYMPH) 2.0 K/cumm 0.5-4.6 N Harvey Abs (test code = AMONO) 0.8 K/cumm 0.0-1.2 N Eos Abs (test code = AEOS) 0.17 K/cumm 0.00-0.74 N Baso Abs (test code = ABASO) 0.0 K/cumm 0.00-0.21 N Hypochromic (test code = HYPO) Slight CK [id number] 21:36:00* Test Item Value Reference Range Interpretation Comments CK (test code = CK) Hide U/L 39-308 N CKMB (test code = CKMB) 2.0 ng/mL 0.0-4.9 N CKMB% (test code = CKMBP) Hide % 0.0-3.4 N Glycosylated Zlccnhfkph6109-81-58 20:34:00* Test Item Value Reference Range Interpretation Comments HBA1c (test code = HBA1C) 5.0 % 4.8-5.9 N Troponin [id number] 20:06:00* Test Item Value Reference Range Interpretation Comments Troponin T (test code = YVONNE) <0.010 ng/mL 0.000-0.090 N Gxhuspfmj0944-78-91 20:06:00* Test Item Value Reference Range Interpretation Comments Potassium (test code = K) 4.7 mmol/L 3.5-5.1 N Lfaoijtav1260-52-01 15:44:00* Test Item Value Reference Range Interpretation Comments Potassium (test code = K) 7.1 mmol/L 3.5-5.1 HH VE RIFIED BY REPEAT TESTINGREAD BACK LAB VALUESOZI RN 15:43 01/22/2017 OG [id number] 11:41:00* Test Item Value Reference Range Interpretation [...] code = THC) Negative Negative N CK [id number] 11:08:00* Test Item Value Reference Range Interpretation Comments CK (test code = CK) n/a U/L 39-308 N CKMB (test code = CKMB) 1.9 ng/mL 0.0-4.9 N CKMB% (test code = CKMBP) 0.0 % 0.0-3.4 N Troponin [id number] 10:54:00* Test Item Value Reference Range Interpretation Comments Troponin T (test code = YVONNE) <0.010 ng/mL 0.000-0.090 N Lactic Acid [id number] 10:29:00* Test Item Value Reference Range Interpretation Comments Lactic Acid, Bld (test code = LAC) 1.0 mmol/L 0.5-1.9 N CK [id number] 10:05:00* Test Item Value Reference Range Interpretation Comments CK (test code = CK) n/a U/L 39-308 N CKMB (test code = CKMB) 2.0 ng/mL 0.0-4.9 N CKMB% (test code = CKMBP) 0.0 % 0.0-3.4 N Troponin [id number] 09:55:00* Test Item Value Reference Range Interpretation Comments Troponin T (test code = YVONNE) <0.010 ng/mL 0.000-0.090 N C-Reactive Protein, [id number] 08:04:00* Test Item Value Reference Range Interpretation Comments CRP (test code = CRP) 48.0 mg/L 0.0-5.0 H Ebwanlwsoi6979-59-50 08:04:00* Test Item Value Reference Range Interpretation Comments Phosphorus (test code = PO4) 3.1 mg/dL 2.70-4.50 N Magnesium, Oigvv4725-15-52 08:04:00* Test Item Value Reference Range Interpretation Comments Magnesium (test code = MG) 1.2 mg/dL 1.7-2.5 L Thyroid Stimulating Hormone (TSH)2017-01-22 08:03:00* Test Item Value Reference Range Interpretation Comments TSH (test code = TSH) 0.76 mIU/mL 0.270-4.200 N Sed Rate ESR ([place])2017-01-22 07:01:00* Test Item Value Reference Range Interpretation Comments ESR (test code = HESR) 53 mm/Hr 0-9 H Lactic Acid [id number] 02:07:00* Test Item Value Reference Range Interpretation Comments Lactic Acid, Bld (test code = LAC) 0.9 mmol/L 0.5-1.9 N Comprehensive Metabolic Lbedo6098-60-21 01:41:00* Test Item Value Reference Range Interpretation [...] race is not provided, and the patient isAfrican-Nicaraguan, multiply by 1.212. If sex is not [...] recommended by the National Kidney Found ation,http://nkdep.nih.gov Rqpliu3878-76-25 01:41:00* Test Item Value Reference Range Interpretation Comments Lipase (test code = LIP) 15 U/L 13-60 N CBC with Fllkfdtrgwjw8916-47-73 01:07:00* Test Item Value Reference Range Interpretation [...] code = ALYMPH) 2.6 K/cumm 0.5-4.6 N Harvey Abs (test code = AMONO) 1.0 K/cumm 0.0-1.2 N Eos Abs (test code = AEOS) 0.38 K/cumm 0.00-0.74 N Baso Abs (test code = ABASO) 0.1 K/cumm 0.00-0.21 N RBC Morphology (test code = RBCMRPH) Slight Anisocytosis Platelet Est (test code = PLTEST) Adequate Platelets on Smear Urinalysis Kptvmxqb3944-87-83 00:14:00* Test Item Value Reference Range Interpretation Comments Color (test code = COLOR) Straw Yellow,Straw,Pl yellow N Clarity (test code = CLAR) Sl Cloudy Clear A Specific [place] (test code = SPGR) 1.009 1.001-1.035 N [...]
[2020-03-18] MEDS: SODIUM CHLORIDE 0.9% 1000ML 1,000 ML IV SCH ×2 (14:45→21:00)
[2020-03-18] MEDS: FAMOTIDINE 20 MG/2 ML VIAL IV SCH (14:45)
[2020-03-18] MEDS ORDERED: FLUCONAZOLE200 MG (16:20)
[2020-03-18] MEDS ORDERED: CLONIDINE HCL0.2 MG (16:20)
[2020-03-18] MEDS ORDERED: DILAUDID2 MG (16:20)
[2020-03-18] MEDS ORDERED: DILAUDID4 MG (16:20)
[2020-03-18] MEDS ORDERED: CYCLOBENZAPRINE10 MG (16:20)
[2020-03-18] MEDS ORDERED: ALPRAZOLAM1 MG (16:20)
[2020-03-18] MEDS ORDERED: PREGABALIN100 MG (16:20)
[2020-03-18] MEDS ORDERED: GABAPENTIN100 MG (16:20)
[2020-03-18] MEDS ORDERED: CARVEDILOL12.5 MG (16:20)
[2020-03-18] MEDS ORDERED: ZINC SULFATE220 M1 (16:20)
[2020-03-18] MEDS ORDERED: FERROUS SULFAT325 MG (16:20)
[2020-03-18] MEDS ORDERED: AMITRIPTYLINE H50 MG (16:20)
[2020-03-18] MEDS ORDERED: NITROFURANTOIN100 M1 (16:20)
[2020-03-18] MEDS ORDERED: ISOSORBIDE DINI10 MG (16:20)
[2020-03-18] MEDS ORDERED: FUROSEMIDE20 MG (16:20)
[2020-03-18] MEDS ORDERED: ONDANSETRON HCL4 MG (16:20)
[2020-03-18] MEDS ORDERED: OXYBUTYNIN CHLOR5 MG (16:20)
[2020-03-18] MEDS ORDERED: DOXYCYCLINE HY100 MG (16:20)
[2020-03-18] MEDS ORDERED: AMLODIPINE BESYL5 MG (16:20)
[2020-03-18] MEDS ORDERED: CITALOPRAM HBR10 MG (16:20)
[2020-03-18] MEDS ORDERED: PANTOPRAZOLE SO40 MG (16:20)
[2020-03-18] MEDS ORDERED: TYLENOL # 31 EA (16:20)
[2020-03-18] MEDS ORDERED: CIPROFLOXACIN250 MG (16:20)
[2020-03-18 16:50] VITALS: BP 114/83
[2020-03-18 17:04] VITALS: BP 114/83
--- NOTE | 2020-03-18 19:00 | NUR ---
RECEIVED THE PATIENT IN REPORT.AAOX4.UPON ASSESSMENT PATIENT IS IRRITATED AND NOT CO OPERATE WITH ASSESSMENT.BACK PAIN VOICED 04/13.NO RESP.DISTRESS.LEFT COLOSTOMY BAG IN PLACE.TELE #[address].HAS MULTIPLE WOUNDS ON THE BODY.HAS SUPRAPUBIC CATHETER.URINE DRAINING WELL.ORIENTED TO THE UNIT.BED LOCKED AND IN LOWEST POSITION.CALL LIGHT WITHIN REACH.INSTRUCTED TO CALL FOR ASSISTANCE NEEDED.
[2020-03-18 19:45] VITALS: BP 114/83
[2020-03-18 20:00] VITALS: BP 101/74
[2020-03-18 20:06] VITALS: BP 101/74
[2020-03-18] MEDS ORDERED: GABAPENTIN 100 MG CAP PO SCH (21:00)
[2020-03-18] MEDS: MEROPENEM 500MG/ NS 50ML 50 ML IV SCH (21:27)
--- NOTE | 2020-03-18 21:30 | NUR ---
CALL PLACED TO DR.S ORDONEZ AND RECEIVED MEDICATION ORDERS.RECEIVED ORDERS TO CONTINUE HOME MED. PER PATIENT STATEMENT CONT.HIS HOME MED.
[2020-03-18] MEDS: HYDROMORPHONE HCL 2 MG TAB PO PRN (22:00)
--- NOTE | 2020-03-18 22:00 | NUR ---
PATIENT IS RESTING IN THE BED.
[2020-03-19] VITALS (10 sets, daily range): BP systolic 100–143; BP diastolic 53–79
--- NOTE | 2020-03-19 00:05 | NUR ---
BLOOD TRANSFUSION STARTED AFTER SIGNED THE CONSENT.V/S STABLE.
[2020-03-19] MEDS ORDERED: LYRICA100 MG PO (00:36)
[2020-03-19] MEDS ORDERED: COREG12.5 MG PO (00:36)
[2020-03-19] MEDS ORDERED: XANAX2 MG PO (00:36)
[2020-03-19] MEDS: HYDROMORPHONE HCL 2 MG TAB PO PRN ×6 (02:15→22:33)
--- NOTE | 2020-03-19 03:00 | NUR ---
First unit of blood completed.no transfusion reaction noted.v/s stable.
[2020-03-19] MEDS: FAMOTIDINE 20 MG/2 ML VIAL IV SCH ×2 (03:10→14:44)
--- NOTE | 2020-03-19 05:30 | NUR ---
Second unit of blood started after verify with second rn.keep monitor the patient.
--- NOTE | 2020-03-19 07:02 | NUR ---
Report given to oncoming rn.stable condition.blood is transfusing.
[2020-03-19] MEDS ORDERED: FUROSEMIDE 20 MG TAB PO SCH (09:00)
[2020-03-19] MEDS ORDERED: ALPRAZOLAM 1 MG TAB PO SCH (09:00)
[2020-03-19] MEDS ORDERED: PREGABALIN 50 MG CAP PO SCH (09:00)
[2020-03-19 09:16] LABS: BASOPHILS % 0.6 % (0.0-1.0); EOSINOPHILS # (AUTO) 0.2 (0.0-0.4); EOSINOPHILS % 3.4 % (0.0-6.0); LYMPHOCYTES # (AUTO) 0.9 (1.0-3.2); LYMPHOCYTES % 13.5 % (18.0-39.1); MEAN CORPUSCULAR HEMOGLOBIN 27.2 pg (28-32); MEAN CORPUSCULAR HGB CONC 32.1 g/dL (31-35); MEAN CORPUSCULAR VOLUME 84.6 fL (81-99); MONOCYTES # (AUTO) 0.4 (0.2-0.8); MONOCYTES % 5.3 % (4.4-11.3); NEUTROPHILS # (AUTO) 5.2 (2.1-6.9); NEUTROPHILS % 76.8 % (38.7-80.0); PLATELET COUNT 87 x10e3/uL (140-360); RED BLOOD COUNT 3.31 x10e6/uL (4.3-5.7); RED CELL DISTRIBUTION WIDTH 17.2 % (11.7-14.4)
[2020-03-19 09:39] LABS: ALBUMIN 2.6 g/dL (3.5-5.0); ALBUMIN/GLOBULIN RATIO 0.5 (0.8-2.0); CALCIUM 8.5 mg/dL (8.4-10.2); CREATININE, SERUM 2.29 mg/dL (0.72-1.25)
[2020-03-19] MEDS: CARVEDILOL 12.5 MG TAB PO SCH ×2 (10:52→17:08)
[2020-03-19] MEDS: MEROPENEM 500MG/ NS 50ML 50 ML IV SCH ×2 (10:52→21:38)
--- NOTE | 2020-03-19 21:00 | NUR ---
PATIENT PULLED OUT THE COLOSTOMY.STOOL IS ALL OVER THE ROOM.PUT NEW COLOSTOMY BAG.DRESSING CHANGED.CENTRAL LINE DRESSING ALSO CHANGED.STABLE CONDITION.
[2020-03-19] MEDS: AMITRIPTYLINE HCL 25 MG TAB PO SCH (21:30)
[2020-03-19] MEDS: PREGABALIN 50 MG CAP PO SCH (21:35)
[2020-03-19] MEDS: ALPRAZOLAM 1 MG TAB PO SCH (22:00)
[2020-03-20] VITALS (10 sets, daily range): BP systolic 85–114; BP diastolic 47–73
[2020-03-20] MEDS: FAMOTIDINE 20 MG/2 ML VIAL IV SCH ×2 (01:51→14:19)
[2020-03-20] MEDS: HYDROMORPHONE HCL 2 MG TAB PO PRN ×4 (04:05→14:19)
--- NOTE | 2020-03-20 06:20 | NUR ---
Attemepted to fix telemetry leads to patient.but he refused to do so.patient is yelling .notified to television schedule coordinator.
--- NOTE | 2020-03-20 07:00 | NUR ---
Report given to oncoming Rn.stable condition.
--- NOTE | 2020-03-20 09:45 | NUR ---
PT RECEIVED TO ROOM 113. VITALS WNL. PT DENIES NEEDS AT THIS TIME.
[2020-03-20] MEDS: MEROPENEM 500MG/ NS 50ML 50 ML IV SCH ×2 (10:18→22:00)
[2020-03-20] MEDS: ALPRAZOLAM 1 MG TAB PO SCH ×2 (10:19→21:00)
[2020-03-20] MEDS: CARVEDILOL 12.5 MG TAB PO SCH ×2 (10:19→17:29)
[2020-03-20] MEDS: PREGABALIN 50 MG CAP PO SCH ×2 (10:19→21:00)
--- NOTE | 2020-03-20 15:40 | NUR ---
CALLED PERSON TO NOTIFY SAMANTHA SHITAL, THE NUMBER LISTED ON FACESHEET IS [facility] (ANOTHER FACILITY) NOT THEIR PATIENT OR HAVE A PT THERE BY THAT NAME, CALLED [employer] NUMBER AND SPOKE WITH COUSIN LINK AND SHE STATES OKAY TO RETURN TO [facility] AND ABLE TO EDUCATE ABOUT IMM, DOES NOT WANT TO APPEAL DISCHARGE.
--- NOTE | 2020-03-20 16:00 | NUR ---
WOUND CARE INITIAL CONSULT FOR 35 YO MALE ADMITTED TO [facility] WITH A PRESENT HX DECUBITUS SKIN ULCER, DRUG ABUSE, PNEUMONIA, RENAL FAILURE. MIGUEL ANGEL 14 ON MODERATE PUP STATUS AND INTERVENTIONS SURFACE: ALTERNATING PRESSURE MATTRESS. LABS: WBC- 6.79 HGB- 9 GLUCOSE: 96 ALBUMIN-2.6 MICRO: BLOOD CULTURE-PENDING URINE CULTURE-PENDING. PTS FLOOR NURSE REPORTED DR. ALATORRE IS ALREADY ON THE CASE. SKIN ASSESSMENT COMPLETE, PATIENT PRESENTS WITH 1)STAGE II PRESSURE ULCER TO LEFT POSTERIOR THIGH; MEASURING 9 CM X 5.5 CM X 0.6 CM; 95% RED GRANULATION, 5% PINK FIBRIN GRANULATION PRESENT; MINIMAL SEROUS SANGUINOUS DRAINAGE PRESENT; ATROPHIC PERIWOUND. 2)STAGE II PRESSURE ULCER TO COCCYGEAL AREA MEASURING 3 CM X 2 CM X 0.3 CM; 95% PINK GRANULATION, 5 % FIBRIN; MINIMAL SEROSANGUINEOUS DRAINAGE PRESENT, ATROPHIC COLBY WOUND. 3)STAGE IV PRESSURE ULCER TO LEFT BUTTOCK; MEASURING 7 CM X 6 CM X 5.3 CM; BONE EXPOSED; MODERATE SEROSANGUINEOUS DRAINAGE PRESENT; ATROPHIC PERIWOUND. 95% PINK GRANULATION; 5 % YELLOW SLOUGH. 4)STAGE IV PRESSURE ULCER TO RIGH BUTTOCKS MEASURING 14.9 CM X 9 CM X 5.2CM; BONE EXPOSED; LARGE SEROSANGUINEOUS DRAINAGE; ATROPHIC PERIWOUND. 90 % PINK GRANULATION; 10 % YELLOW SLOUGH. 5)DTI TO RIGHT HEEL; PURPLE/RED NON BLANCHABLE DISCOLORATION; MEASURING 8 CM X 4 CM. NO DRAINAGE. 6)STAGE II PRESSURE ULCER TO RIGHT ANKLE; MINIMAL SEROUS DRAINAGE; MEASURING 6 CM X 4 CM. 7)STAGE II PRESSURE ULCER TO RIGHT 5TH TOE MEASURING; 0.9 CM X 0.8 CM X 0.2 CM; 90% PINK GRANULATION; 10% FIBRIN; MINIMAL SEROUS DRAINAGE PRESENT. RECOMMENDATIONS: NURSING TO CONTINUE TO FOLLOW UP WITH DR. ALATORRE CONSULT. NURSING TO CLEAN, COCCYGEAL, LEFT AND RIGHT BUTTOCK ULCERS WITH NORMAL SALINE, PAT DRY WITH 4X4 GAUZE, FIBRACOL; APPLY MAXORB AG, DRAWTEX AND COVER WITH ALLEVYN FOAM DAILY. NURSING TO CLEAN LEFT POSTERIOR THIGH ULCER WITH NORMAL SALINE, PAT DRY WITH 4X4 GAUZE, APPLY FIBRACOL, AND APPLY MAXORB AG AND COVER WITH ALLEVYN FOAM DAILY. NURSING TO CLEAN RIGHT HEEL ULCER WITH NORMAL SALINE, PAT DRY WITH 4X4 GAUZE, APPLY VENELEX AND SECURE WITH ALLEVYN FOAM DAILY. NURSING TO CLEAN RIGHT ANKLE ULCER WITH NORMAL SALINE, PAR DRY WITH 4X4 GAUZE, APPLY VENELEX, COVER WITH ALLEVYN FOAM DAILY. NURSING TO CLEAN RIGHT 5TH TOE WITH NORMAL SALINE, PAT DRY WITH 4X4 GAUZE, APPLY FIBRACOL, AND COVER WITH 4X4 GAUZE, AND SECURE WITH KERLIX AND TAPE DAILY. NURSING TO APPLY RIGHT HEEL PROTECTOR DAILY. NURSING TO CONTINUE TO MONITOR PATIENT AND KEEP SKIN CLEAN AND FREE FROM STOOL OR IRRITATING MOISTURE AND CONTINUE TO FOLLOW MODERATE PUP INTERVENTIONS DAILY. NURSING TO CONTINUE REPOSITION PT SIDE TO SIDE EVERY TWO HOURS AND NEEDED. NURSING TO APPLY ALTERNATING PRESSURE MATTRESS. NURSING TO CONTINUE TO OFFLOAD BILATERAL LOWER EXTREMITIES ALL TIMES WITH PILLOW SUSPENSION WHEN IN BED. NURSING TO CONTINUE TO ASSIST WITH PT NUTRITONAL SUPPLEMENTS TO ENSURE PROPER REQUIREMENTS FOR HEALING. NURSING TO RE- CONSULT WOUND CARE NEEDED. Addendum: 03/20/20 at 1758 by Amanda Salazar RN Amended: Links added.
--- NOTE | 2020-03-20 19:44 | NUR ---
Received pt laying head on bedside table with covers over face. Respond appropriately when spoken to. No s/sx of acute distress noted, no c/o. Bed in low and locked position, call krause within reach. Bedside report given.
[2020-03-20] MEDS: AMITRIPTYLINE HCL 25 MG TAB PO SCH (21:00)
--- NOTE | 2020-03-20 21:00 | NUR ---
Took report from Mahsa (RN). Patient alert and oriented x3. On bedrest. Suprapubic catheter in place. Multiple wounds noted (see Qshift assessment for details). 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 Patient on scheduled IV antibiotics. Call krause within reach. Will monitor closely.
--- NOTE | 2020-03-20 21:45 | NUR ---
Patient was seen laying on the floor retirement out of his hospital room (Rm 113). The fall was unwitnessed. Bed alarm was on but did not rang and was discovered to be broken. Patient assessed and when asked if he remembers what happened, patient's response was "I was trying to get back to bed." Personal nurse (Cyril) along with 2 nurse (Maddie and Mahsa) all worked together carrying the patient up to sat on a wheelchair. Patient then wheeled close to bedside then carried or transferred from wheelchair to a new hospital bed (with working bed alarm). Patient appear stable but quite pale. No signs of pain or distress. Patient appear quite pale. MD, CN, Network Analyst and family plan to be notified of fall event.
--- NOTE | 2020-03-20 21:50 | NUR ---
Najma Corbett (charge nurse) notified of fall event. Najma called Grants [employer] Contracts Assistant, Neema Julio, to report of fall event.
--- NOTE | 2020-03-20 22:20 | NUR ---
Spoke with Dr. Coni Ibarra and reported about fall event and that patient was asking for pain med. Reported to MD that patient's latest BP (post fall) was 85/61 and HR of 112. MD ordered sitter (1:1), consult Dr. Aixa Gann (re: altered mental status), and emphasized not to give pain medication to patient especially when blood pressure is low.
--- NOTE | 2020-03-20 22:30 | NUR ---
Spoke with HS (Neema Julio) and informed need for sitter for patient per MD order. HS said she will pull a CODE ENFORCEMENT INSPECTOR from ER to sit with patient for tonight's shift.
[2020-03-20] MEDS ORDERED: SODIUM CHLORIDE 0.9% 250ML 250 ML ONE (22:32)
--- NOTE | 2020-03-20 23:00 | NUR ---
Enrique Mahoney (ELI) arrived and sat with patient at bedside to provide sitter care.
--- NOTE | 2020-03-20 23:04 | NUR ---
Attempted to call first contact, Ada Renee (aunt) - tel# [phone] but no response. Nurse (Cyril) left voice message and call back phone number. Nurse attempted second contact, Krystina Denney - tel# [phone] but also no response.
[2020-03-21] VITALS (9 sets, daily range): BP systolic 87–111; BP diastolic 51–79
[2020-03-21] MEDS: HYDROMORPHONE HCL 2 MG TAB PO PRN ×3 (01:27→20:04)
--- NOTE | 2020-03-21 01:30 | NUR ---
Assessed patient's mental state. Patient alert and oriented x3 at this time. Patient appear calm and displays no agitation or anxiety at this time.
[2020-03-21] MEDS: FAMOTIDINE 20 MG/2 ML VIAL IV SCH ×2 (01:35→14:15)
--- NOTE | 2020-03-21 06:26 | NUR ---
Called and spoke with answering service (Charmaine) to notify Kurtis Edmonds of new consult (re: altered mental status). Charmaine obtained health insurance plan (Medicare A and B) for patient and stated she will verify insurance at 0700 this morning.
--- NOTE | 2020-03-21 07:00 | NUR ---
BEDSIDE SHIFT REPORT RECEIVED FROM ACTIVITY SPECIALIST RN. PT DENIES NEEDS AT THIS TIME.
--- NOTE | 2020-03-21 08:37 | NUR ---
INTERMEDIATE FACILITY DISCHARGE INFORMATION PATIENT HAS BEEN ACCEPTED TO: NAME: [facility] ADDRESS:[id number] [facility] ACCEPTING WINCHMAN/CRANE OPERATOR: IZABELLA MIRANDA MD:JOSÉ LUIS ROOM:118 NURSE CALL REPORT TO: [phone] IMM SIGNED AND OBTAINED (if applicable): IMM THE FOLLOWING DOCUMENTS MUST ACCOMPANY PATIENT FOR TRANSFER: COPIED CHART:PACKET
[2020-03-21] MEDS: CARVEDILOL 12.5 MG TAB PO SCH ×2 (09:00→17:06)
[2020-03-21] MEDS: PREGABALIN 50 MG CAP PO SCH ×2 (09:01→21:09)
[2020-03-21] MEDS: ALPRAZOLAM 1 MG TAB PO SCH ×2 (09:01→21:09)
[2020-03-21] MEDS: MEROPENEM 500MG/ NS 50ML 50 ML IV SCH (09:01)
[2020-03-21] MEDS: BALSAM PERU/CASTOR OIL 60 GM OINT...G. TP SCH (09:02)
[2020-03-21] MEDS ORDERED: QUETIAPINE FUMARATE 25 MG TAB PO PRN (10:15)
[2020-03-21] MEDS ORDERED: ALPRAZOLAM 1 MG TAB PO PRN (10:15)
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
--- NOTE | 2020-03-21 11:28 | NUR ---
DR ORDONEZ CAME IN AND DUE TO LABS, NOW REFERRING TO ID AND UROLOGY, WANTS TO BEGIN PROCESS FOR LTAC. CALLED COUSIN LINK AND SHE IS IN AGREEMENT, LET HER KNOW CANCELING THE RETURN TO [facility], SHE AGREED TO [facility] FOR TREATMENT. FAXED CLINICALS AND PRINTED MOT TO BEGIN PROCESS. PER DR ORDONEZ PT CANNOT GO TO LTAC UNTIL CONSULTS HAVE SEEN PT.
[2020-03-21 11:35] LABS: ANION GAP 13.7 mmol/L (8-16); CALCIUM 7.9 mg/dL (8.4-10.2); CREATININE, SERUM 2.33 mg/dL (0.72-1.25); POTASSIUM 4.7 mmol/L (3.5-5.1)
[2020-03-21] MEDS ORDERED: SODIUM CHLORIDE 0.9% 250ML 250 ML IV ONE ×2 (12:00→15:00)
[2020-03-21] MEDS: FLUCONAZOLE 200 MG/100 ML 100 ML IV SCH (12:19)
[2020-03-21] MEDS ORDERED: MEROPENEM 1GM 100 ML IV SCH (14:00)
[2020-03-21] MEDS ORDERED: IOPAMIDOL 370 MG/ML 200 ML INFUS..BTL INJ ONE (14:34)
[2020-03-21] MEDS ORDERED: SODIUM CHLORIDE 0.9% 50ML 0 ML ONE (14:34)
--- NOTE | 2020-03-21 15:03 | NUR ---
PT OFF THE FLOOR TO CT. REPORT GIVEN TO MILA SOTO ON MED/SURG 2. PT IS MOVING TO RM [address] BECAUSE OF + BLOOD CULTURES.
--- NOTE | 2020-03-21 15:28 | NUR ---
The pt. arrived to 205 post radiology procedure and iv antibiotic reconnected and 250 ml n/s post med complete. /
--- NOTE | 2020-03-21 15:50 | Diagnostic Imaging Report ---
EXAM: CT Abdomen and Pelvis WITH intravenous contrast INDICATION: Abdominal pain COMPARISON: Chest radiograph 03/18/2020 TECHNIQUE: Abdomen and pelvis were scanned utilizing a multidetector helical scanner from the lung base to the pubic symphysis after administration of IV contrast. Coronal and sagittal reformations were obtained. Routine protocol was performed. Scan was performed during portal venous phase. IV CONTRAST: 100mL of Isovue 370 ORAL CONTRAST: Water RADIATION DOSE: Total DLP: 662 mGy*cm Dose modulation, iterative reconstruction, and/or weight based adjustment of the mA/kV was utilized to reduce the radiation dose to as low as reasonably achievable. FINDINGS: LOWER THORAX: Bibasilar dependent subsegmental atelectasis. Smooth interlobular septal thickening can be seen in the setting of interstitial edema. Bibasilar groundglass opacities may be related to early airspace edema however superimposed atypical pneumonia should be excluded clinically. HEPATOBILIARY: No focal liver lesions. Calcifications at the peripheral right liver may be postoperative or related to remote trauma. No biliary ductal dilation. Absent gallbladder. SPLEEN: Splenomegaly to 15.4 cm. PANCREAS: No focal masses or ductal dilatation. ADRENALS: No adrenal nodules. KIDNEYS/URETERS: Absent right kidney. Left internal nephroureteral stents in place. Moderate left hydronephrosis. Wedge-shaped hypodensity at the upper pole of the left kidney may represent a renal infarct. PELVIC ORGANS/BLADDER: Suprapubic tube in the bladder. PERITONEUM / RETROPERITONEUM: No free air or fluid. LYMPH NODES: No lymphadenopathy. 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 GI TRACT: Extensive colonic stool burden throughout the ascending, transverse, and proximal descending colon. Left lower quadrant colostomy. BONES AND SOFT TISSUES: Old right pubic fracture. No acute fracture or dislocation. Focal kyphosis at L1-2 where there has been remote trauma and interval healing and malalignment resulting in fusion of the posterior elements of L1 and L2. Right and left iliac lucent lesions measure up to 1.2 cm on the left and 9 mm in the right. IMPRESSION: Left internal nephroureteral stents in place. Moderate left hydronephrosis. Left upper pole renal infarct. Absent right kidney. Extensive stool burden throughout the ascending, transverse and proximal descending colon consistent with constipation. Left lower quadrant colostomy. Bibasilar smooth interlobular septal thickening can be seen in the setting of interstitial edema. Bibasilar groundglass opacities may be related to early airspace edema however superimposed atypical pneumonia should be excluded clinically. Right and left iliac bone lytic lesions. If the patient has a history of malignancy, these would be concerning for metastases. Old right pubic and lumbar spine fractures. Focal kyphosis at L1-2 where there has been healing in malalignment with fusion of the posterior elements of L1 and L2. 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 Signed by: Josemanuel Lynn MD on 03/21/2020 3:47 PM
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
--- NOTE | 2020-03-21 19:30 | NUR ---
Patient received lying in bed. AAO x 3. Patient complained of lower back pain (01/11). Will administer medication per eMAR. Respirations even and non-labored. Suprapubic catheter draining pale clear yellow urine. Colostomy bag in place. Multiple wounds noted on buttocks and bilateral legs. Patient assisted to a more comfortable position. Patient asked to call for assistance when needed. Bed locked and in lowest position. Bed rails up x 2. Call light within reach.
--- NOTE | 2020-03-21 21:15 | NUR ---
Patient removed Colostomy bag himself. Kareen-care performed. Patient assisted with placement of new colostomy bag.
[2020-03-22] VITALS: BP 93/65
--- NOTE | 2020-03-22 02:33 | NUR ---
Wound dressing performed per MD's orders. Patient tolerated well.
--- NOTE | 2020-03-22 03:19 | NUR ---
Wound dressing done per MD's orders bilateralbutock snf . Patient tolerated well, Addendum: 03/22/20 at 0324 by Olivia Tovar RN Please disregard wrong note for patient
--- NOTE | 2020-03-22 04:15 | NUR ---
Patient refused PCT taking vital signs at 0400.
[2020-03-22] MEDS: MEROPENEM 1GM 100 ML IV SCH ×2 (04:54→15:05)
[2020-03-22] MEDS: FAMOTIDINE 20 MG/2 ML VIAL IV SCH ×2 (04:55→13:43)
[2020-03-22] MEDS ORDERED: SODIUM CHLORIDE 0.9% 250ML 250 ML ONE (05:16)
--- NOTE | 2020-03-22 05:19 | NUR ---
Blood specimen drawn from Rt IJ and sent to lab for analysis.
--- NOTE | 2020-03-22 06:44 | NUR ---
Patient resting comfortably. No acute distress noted. Bed-side shift report given to oncoming nurse regarding patient's status.
--- NOTE | 2020-03-22 06:45 | NUR ---
BEDSIDE SHIFT REPORT RECEIVED FROM PM NURSE. PT IN STABLE CONDITION.
[2020-03-22 07:56] VITALS: BP 93/65
[2020-03-22 08:08] VITALS: BP 97/55
[2020-03-22 08:15] LABS: ANION GAP 12.9 mmol/L (8-16); CALCIUM 7.9 mg/dL (8.4-10.2); CREATININE, SERUM 2.17 mg/dL (0.72-1.25); POTASSIUM 4.9 mmol/L (3.5-5.1)
--- NOTE | 2020-03-22 08:47 | NUR ---
ASSISTED DR. GALLO AT BEDSIDE FOR REPLACEMENT OF SUPRAPUBIC CATHETER. PT TOLERATED WELL. IN STABLE CONDITION. RECEIVED ORDERS FOR URINE CULTURE.
[2020-03-22] MEDS: CARVEDILOL 12.5 MG TAB PO SCH ×2 (09:00→13:43)
[2020-03-22 09:18] LABS: BASOPHILS % 0.6 % (0.0-1.0); EOSINOPHILS # (AUTO) 0.3 (0.0-0.4); EOSINOPHILS % 3.9 % (0.0-6.0); HEMATOCRIT 22.8 % (38.2-49.6); HEMOGLOBIN 7.1 g/dL (14.0-18.0); LYMPHOCYTES % 27.6 % (18.0-39.1); MEAN CORPUSCULAR HEMOGLOBIN 27.2 pg (28-32); MEAN CORPUSCULAR HGB CONC 31.1 g/dL (31-35); MEAN CORPUSCULAR VOLUME 87.4 fL (81-99); MONOCYTES # (AUTO) 1.3 (0.2-0.8); MONOCYTES % 18.2 % (4.4-11.3); NEUTROPHILS # (AUTO) 3.6 (2.1-6.9); NEUTROPHILS % 49.3 % (38.7-80.0); PLATELET COUNT 112 x10e3/uL (140-360); RED BLOOD COUNT 2.61 x10e6/uL (4.3-5.7)
--- NOTE | 2020-03-22 09:43 | NUR ---
LONG-TERM ACUTE CARE DISCHARGE INFORMATION PATIENT HAS BEEN ACCEPTED TO: [address] [place] [address] ACCEPTING SILVER STEWARD: Phyllis Reyes ACCEPTING MD: Dr. Ibarra ROOM: 602 NURSE CALL REPORT TO: [phone] THE FOLLOWING DOCUMENTS MUST ACCOMPANY PATIENT FOR TRANSFER: Copy of chart. transfer MAR COPIED CHART: unit clerk MOT INFO RECEIVED FROM: Alyssa Velasco with [facility]ICIANS ORDER/RECONCILED MED LIST: to be obtained by bedside RN [id number] DNR: n/a MOT completed and placed with pt's packet at nurse's station. MILA Ludwig notified of MOT.
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
[2020-03-22 11:44] VITALS: BP 100/59
[2020-03-22] MEDS: ALPRAZOLAM 1 MG TAB PO SCH (13:43)
[2020-03-22] MEDS: PREGABALIN 50 MG CAP PO SCH (13:43)
[2020-03-22] MEDS: BALSAM PERU/CASTOR OIL 60 GM OINT...G. TP SCH (13:43)
[2020-03-22] MEDS: HYDROMORPHONE HCL 2 MG TAB PO PRN (13:46)
[2020-03-22] MEDS: FLUCONAZOLE 200 MG/100 ML 100 ML IV SCH (13:46)
--- NOTE | 2020-03-22 13:46 | NUR ---
pt awake, alert, oriented, blood pressure improved. pt c/o severe back pain; administered PO Dilaudid. will continue to monitor.
--- NOTE | 2020-03-22 15:01 | NUR ---
infectious disease progress note Patient seen and examined chart reviewed Physical examination currently alert oriented does not seem to be in acute distress vital stable currently afebrile HEENT not very thick neck supple chest clear heart S1-S2 abdomen soft neuro there is a new finding Impression Sepsis in remission UTI with bacteremia ESBL Continue meropenem for 14 days Chronic kidney disease Paraplegic Depression
--- NOTE | 2020-03-22 15:18 | NUR ---
report given to MILA Mccurdy at [facility]. pt being transferred to LTAC.
[2020-03-22 15:46] VITALS: BP 99/61
== END 2020-03-22 17:25 | DRG 698 ==
LOC: ER 10:04 → ERHOLD 14:13 → OBSVTOIN 16:28 → IMCU 16:47 → MED/SURG 03-20 09:51 → MED/SURG2 03-21 15:08
PROC: 30233N1 Transfusion of Nonautologous Red Blood Cells into Peripheral Vein, Percutaneous Approach (ICD-10-PCS; principal; 2020-03-18)
PROC: 30233N1 Transfusion of Nonautologous Red Blood Cells into Peripheral Vein, Percutaneous Approach (ICD-10-PCS; 2020-03-19)
DX: T83.511A Infection and inflammatory reaction due to indwelling urethral catheter, initial encounter (principal); A41.89 Other specified sepsis; L89.324 Pressure ulcer of left buttock, stage 4; L89.314 Pressure ulcer of right buttock, stage 4; L89.153 Pressure ulcer of sacral region, stage 3; L89.213 Pressure ulcer of right hip, stage 3; J18.9 Pneumonia, unspecified organism; N30.00 Acute cystitis without hematuria; G82.20 Paraplegia, unspecified; N17.9 Acute kidney failure, unspecified; M86.69 Other chronic osteomyelitis, multiple sites; N10 Acute pyelonephritis; B37.49 Other urogenital candidiasis; F33.1 Major depressive disorder, recurrent, moderate; Z16.12 Extended spectrum beta lactamase (ESBL) resistance; Q60.0 Renal agenesis, unilateral; F19.10 Other psychoactive substance abuse, uncomplicated; I12.9 Hypertensive chronic kidney disease with stage 1 through stage 4 chronic kidney disease, or unspecified chronic kidney disease; N18.9 Chronic kidney disease, unspecified; Z86.19 Personal history of other infectious and parasitic diseases; Z87.442 Personal history of urinary calculi; Z87.440 Personal history of urinary (tract) infections; Z87.891 Personal history of nicotine dependence; Z96.0 Presence of urogenital implants; Z86.14 Personal history of Methicillin resistant Staphylococcus aureus infection; Z90.49 Acquired absence of other specified parts of digestive tract; Z89.512 Acquired absence of left leg below knee; Z93.3 Colostomy status; Z88.5 Allergy status to narcotic agent; Z88.8 Allergy status to other drugs, medicaments and biological substances; F41.9 Anxiety disorder, unspecified; D64.9 Anemia, unspecified; F31.9 Bipolar disorder, unspecified; B96.1 Klebsiella pneumoniae [K. pneumoniae] as the cause of diseases classified elsewhere; N31.9 Neuromuscular dysfunction of bladder, unspecified; Z11.59 Encounter for screening for other viral diseases
CPT/HCPCS: 36415; 70450; 71045; 74177; 80048; 80053; 80307; 80329; 81001; 82550; 82553; 83605; 84484; 85025; 85610; 85730; 86850; 86900; 86920; 87040; 87071; 87086; 87186; 87205; 99285; J1450; J2185; J2405; J3370; J7030; J7040; J7050; P9016; Q9967; U0002